=== PATIENT | male | born 1935 | race Caucasian/White ===

== ENCOUNTER 2022-11-17 18:03 | Outpatient (RCR) | payer MEDICARE, OTHER, SELFPAY | END 2022-12-12 23:59 | disposition home or self-care (01) | LOC: MM 18:03 | PROVIDERS: PCP Internal Medicine; Visit Provider Internal Medicine | DX: Z51.81 Encounter for therapeutic drug level monitoring (principal); Z79.01 Long term (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; I48.91 Unspecified atrial fibrillation | CPT/HCPCS: 85610; G0463 ==

== ENCOUNTER 2022-12-18 08:52 | Outpatient (RCR) | payer MEDICARE, OTHER, SELFPAY | END 2023-01-12 16:50 | disposition home or self-care (01) | LOC: MM 08:52 | PROVIDERS: PCP Internal Medicine; Visit Provider Internal Medicine | DX: Z51.81 Encounter for therapeutic drug level monitoring (principal); Z79.01 Long term (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; I48.91 Unspecified atrial fibrillation | CPT/HCPCS: 85610; G0463 ==

== ENCOUNTER 2022-12-18 09:59 | Outpatient (OUT) | payer MEDICARE, OTHER, SELFPAY ==
--- NOTE | 2022-12-18 11:20 | CT_ITS ---
[address] [address] Patient Name: FANI TAY MRN: [id number] date: 1935 Sex: M Assigned Patient Location: CT Current Patient Location: Accession/Order Number: [id number] Exam Date: 12/18/2022 11:24 Report Date: 12/19/2022 07:19 At the request of: NON-STAFF PHYSICIAN Procedure: CT lumbar spine wo con EXAM: CT scan of the lumbar spine without IV iodinated contrast. Dose reduction technique used: Automated exposure control and/or adjustment of the mA and/or kV according to patient size and/or use of iterative reconstruction technique. REASON FOR EXAM: Lumbar radiculopathy M54.16, Spinal stenosis M48.062 COMPARISON: CT scan dated 01/14/2020 FINDINGS: No lumbar spine fractures. Grade 1 anterolisthesis of L4 on L5 and L5 on S1. L4-5 spinal canal stenosis is likely severe. Mild to moderate L2-L3 spinal canal stenosis. Mild L3-L4 spinal canal stenosis. No moderate or high-grade neural foraminal stenoses. Moderate right hydroureteronephrosis. Remainder unremarkable. IMPRESSION: 1. No acute lumbar spine abnormalities. 2. Moderate right hydroureteronephrosis, consider follow-up abdomen pelvis CT. 3. 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 Electronically authenticated by: ROSELIA LUCAS Date: 12/19/2022 07:19
== END 2022-12-18 10:00 | disposition home or self-care (01) ==
LOC: CT 10:01
PROVIDERS: PCP Internal Medicine
DX: M54.16 Radiculopathy, lumbar region (principal); M48.062 Spinal stenosis, lumbar region with neurogenic claudication; N13.30 Unspecified hydronephrosis
CPT/HCPCS: 72131

== ENCOUNTER 2023-01-09 15:43 | Outpatient (OUT) | payer MEDICARE, OTHER, SELFPAY ==
--- NOTE | 2023-01-09 16:06 | US_ITS ---
The [address] [address] Patient Name: FANI TAY MRN: [id number] date: 1935 Sex: M Assigned Patient Location: [facility] Current Patient Location: Accession/Order Number: [id number] Exam Date: 01/09/2023 16:07 Report Date: 01/09/2023 17:38 At the request of: MARÍA ANDERSON Procedure: US venous doppler LE LT EXAM: ULTRASOUND OF THE LOWER EXTREMITY VENOUS LEFT HISTORY: Extremity edema and pain. EDEMA R60.9, PAIN OF LEFT LOWER EXTREMITY M79.605 COMPARISON: None. TECHNIQUE: Multiple sonographic images are performed of the extremity venous system with both color Doppler and grayscale Doppler. Doppler spectral analysis and color flow were performed of the extremity. FINDINGS: There is no evidence of thrombus within the visualized veins. There is adequate phasic and spontaneous flow. There is adequate compression. There is adequate augmentation. No evidence of DVT within the visualized veins of the visualized extremity. No popliteal fluid collection. US/US venous doppler LE LT IMPRESSION: No evidence of DVT within visualized veins. Electronically authenticated by: LAILA YI Date: 01/09/2023 17:38
== END 2023-01-09 15:44 | disposition home or self-care (01) ==
LOC: RAD 15:45
PROVIDERS: PCP Internal Medicine; Visit Provider Internal Medicine
DX: R60.9 Edema, unspecified (principal); M79.605 Pain in left leg
CPT/HCPCS: 93971

== ENCOUNTER 2023-01-13 09:04 | Outpatient (RCR) | payer MEDICARE, OTHER, SELFPAY | END 2023-02-12 17:23 | disposition home or self-care (01) | LOC: MM 09:04 | PROVIDERS: PCP Internal Medicine; Visit Provider Internal Medicine | DX: Z51.81 Encounter for therapeutic drug level monitoring (principal); Z79.01 Long term (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; I48.91 Unspecified atrial fibrillation ==

== ENCOUNTER 2023-02-13 09:59 | Outpatient (RCR) | payer MEDICARE, OTHER, SELFPAY | END 2023-03-13 16:40 | disposition home or self-care (01) | LOC: MM 09:59 | PROVIDERS: PCP Internal Medicine; Visit Provider Internal Medicine | DX: Z51.81 Encounter for therapeutic drug level monitoring (principal); Z79.01 Long term (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; I48.91 Unspecified atrial fibrillation | CPT/HCPCS: 85610; G0463 ==

== ENCOUNTER 2023-03-16 01:37 | Outpatient (RCR) | payer MEDICARE, OTHER, SELFPAY | END 2023-04-14 17:16 | disposition home or self-care (01) | LOC: MM 01:37 | PROVIDERS: PCP Internal Medicine; Visit Provider Internal Medicine | DX: Z51.81 Encounter for therapeutic drug level monitoring (principal); Z79.01 Long term (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; I48.91 Unspecified atrial fibrillation | CPT/HCPCS: 85610; G0463 ==

== ENCOUNTER 2023-04-15 00:27 | Outpatient (RCR) | payer MEDICARE, OTHER, SELFPAY | END 2023-05-14 16:03 | disposition home or self-care (01) | LOC: MM 00:27 | PROVIDERS: PCP Internal Medicine; Visit Provider Internal Medicine | DX: Z51.81 Encounter for therapeutic drug level monitoring (principal); Z79.01 Long term (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; I48.91 Unspecified atrial fibrillation | CPT/HCPCS: 85610; G0463 ==

== ENCOUNTER 2023-05-15 09:12 | Outpatient (RCR) | payer MEDICARE, OTHER, SELFPAY | END 2023-06-12 15:23 | disposition home or self-care (01) | LOC: MM 09:12 | PROVIDERS: PCP Internal Medicine; Visit Provider Internal Medicine | DX: Z51.81 Encounter for therapeutic drug level monitoring (principal); Z79.01 Long term (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; I48.91 Unspecified atrial fibrillation ==

== ENCOUNTER 2023-06-15 00:59 | Outpatient (RCR) | payer MEDICARE, OTHER, SELFPAY | END 2023-07-15 17:06 | disposition home or self-care (01) | LOC: MM 00:59 | PROVIDERS: PCP Internal Medicine; Visit Provider Internal Medicine | DX: Z51.81 Encounter for therapeutic drug level monitoring (principal); Z79.01 Long term (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; I48.91 Unspecified atrial fibrillation | CPT/HCPCS: 85610; G0463 ==

== ENCOUNTER 2023-07-16 01:42 | Outpatient (RCR) | payer MEDICARE, OTHER, SELFPAY | END 2023-08-13 17:15 | disposition home or self-care (01) | LOC: MM 01:42 | PROVIDERS: PCP Internal Medicine; Visit Provider Internal Medicine | DX: Z51.81 Encounter for therapeutic drug level monitoring (principal); Z79.01 Long term (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; I48.91 Unspecified atrial fibrillation ==

== ENCOUNTER 2023-08-14 01:08 | Outpatient (RCR) | payer MEDICARE, OTHER, SELFPAY | END 2023-09-11 13:05 | disposition home or self-care (01) | LOC: MM 01:08 | PROVIDERS: PCP Internal Medicine; Visit Provider Internal Medicine | DX: Z51.81 Encounter for therapeutic drug level monitoring (principal); Z79.01 Long term (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; I48.91 Unspecified atrial fibrillation ==

== ENCOUNTER 2023-09-14 03:30 | Outpatient (RCR) | payer MEDICARE, OTHER, SELFPAY | END 2023-10-13 17:50 | disposition home or self-care (01) | LOC: MM 03:30 | PROVIDERS: PCP Internal Medicine; Visit Provider Internal Medicine | DX: Z51.81 Encounter for therapeutic drug level monitoring (principal); Z79.01 Long term (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; I48.91 Unspecified atrial fibrillation | CPT/HCPCS: 85610; G0463 ==

== ENCOUNTER 2023-10-14 00:18 | Outpatient (RCR) | payer MEDICARE, OTHER, SELFPAY | END 2023-11-13 11:13 | disposition home or self-care (01) | LOC: MM 00:18 | PROVIDERS: PCP Internal Medicine; Visit Provider Internal Medicine | DX: Z51.81 Encounter for therapeutic drug level monitoring (principal); Z79.01 Long term (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; I48.91 Unspecified atrial fibrillation | CPT/HCPCS: 85610; G0463 ==

== ENCOUNTER 2023-11-16 00:20 | Outpatient (RCR) | payer MEDICARE, OTHER, SELFPAY | END 2023-12-11 09:58 | disposition home or self-care (01) | LOC: MM 00:20 | PROVIDERS: PCP Internal Medicine; Visit Provider Internal Medicine | DX: Z51.81 Encounter for therapeutic drug level monitoring (principal); Z79.01 Long term (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; I48.91 Unspecified atrial fibrillation | CPT/HCPCS: 85610; G0463 ==

== ENCOUNTER 2023-12-14 00:42 | Outpatient (RCR) | payer MEDICARE, OTHER, SELFPAY | END 2024-01-13 09:40 | disposition home or self-care (01) | LOC: MM 00:42 | PROVIDERS: PCP Internal Medicine; Visit Provider Internal Medicine | DX: Z51.81 Encounter for therapeutic drug level monitoring (principal); Z79.01 Long term (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; I48.91 Unspecified atrial fibrillation ==

== ENCOUNTER 2024-01-14 00:31 | Outpatient (RCR) | payer MEDICARE, OTHER, SELFPAY | END 2024-02-12 09:30 | disposition home or self-care (01) | LOC: MM 00:31 | PROVIDERS: PCP Internal Medicine; Visit Provider Internal Medicine | DX: Z51.81 Encounter for therapeutic drug level monitoring (principal); Z79.01 Long term (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; I48.91 Unspecified atrial fibrillation | CPT/HCPCS: 85610; G0463 ==

== ENCOUNTER 2024-02-15 00:55 | Outpatient (RCR) | payer MEDICARE, OTHER, SELFPAY | END 2024-03-14 23:25 | disposition home or self-care (01) | LOC: MM 00:55 | PROVIDERS: PCP Internal Medicine; Visit Provider Internal Medicine | DX: Z51.81 Encounter for therapeutic drug level monitoring (principal); Z79.01 Long term (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; I48.91 Unspecified atrial fibrillation | CPT/HCPCS: 85610; G0463 ==

== ENCOUNTER 2024-03-15 01:27 | Outpatient (RCR) | payer MEDICARE, OTHER, SELFPAY | END 2024-04-14 23:37 | disposition home or self-care (01) | LOC: MM 01:27 | PROVIDERS: PCP Internal Medicine; Visit Provider Internal Medicine | DX: Z51.81 Encounter for therapeutic drug level monitoring (principal); Z79.01 Long term (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; I48.91 Unspecified atrial fibrillation | CPT/HCPCS: 85610; G0463 ==

== ENCOUNTER 2024-03-25 15:51 | Outpatient (RCR) | payer MEDICARE, OTHER, SELFPAY | END 2024-04-02 15:25 | disposition home or self-care (01) | LOC: PT 15:51 | PROVIDERS: PCP Internal Medicine; Visit Provider Physician Assistant | DX: M75.21 Bicipital tendinitis, right shoulder (principal); M75.101 Unspecified rotator cuff tear or rupture of right shoulder, not specified as traumatic | CPT/HCPCS: 97110; 97140; 97161 ==

== ENCOUNTER 2024-04-15 11:07 | Outpatient (RCR) | payer MEDICARE, OTHER, SELFPAY | END 2024-05-14 23:59 | disposition home or self-care (01) | LOC: MM 11:07 | PROVIDERS: PCP Internal Medicine; Visit Provider Internal Medicine | DX: Z51.81 Encounter for therapeutic drug level monitoring (principal); Z79.01 Long term (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; I48.91 Unspecified atrial fibrillation ==

== ENCOUNTER 2024-05-15 11:03 | Outpatient (RCR) | payer MEDICARE, OTHER, SELFPAY | END 2024-06-14 09:59 | disposition home or self-care (01) | LOC: MM 11:03 | PROVIDERS: PCP Internal Medicine; Visit Provider Internal Medicine | DX: Z51.81 Encounter for therapeutic drug level monitoring (principal); I48.91 Unspecified atrial fibrillation; Z79.01 Long term (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 | CPT/HCPCS: 85610; G0463 ==

== ENCOUNTER 2024-06-16 00:29 | Outpatient (RCR) | payer MEDICARE, OTHER, SELFPAY | END 2024-07-15 15:04 | disposition home or self-care (01) | LOC: MM 00:29 | PROVIDERS: PCP Internal Medicine; Visit Provider Internal Medicine | DX: Z51.81 Encounter for therapeutic drug level monitoring (principal); Z79.01 Long term (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; I48.91 Unspecified atrial fibrillation | CPT/HCPCS: 85610; G0463 ==

== ENCOUNTER 2024-07-18 00:48 | Outpatient (RCR) | payer MEDICARE, OTHER, SELFPAY | END 2024-08-12 11:17 | disposition home or self-care (01) | LOC: MM 00:48 | PROVIDERS: PCP Internal Medicine; Visit Provider Internal Medicine | DX: Z51.81 Encounter for therapeutic drug level monitoring (principal); Z79.01 Long term (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; I48.91 Unspecified atrial fibrillation | CPT/HCPCS: 85610; G0463 ==

== ENCOUNTER 2024-08-03 14:19 | Outpatient (OUT) | payer MEDICARE, OTHER, SELFPAY ==
--- NOTE | 2024-08-03 14:24 | XR_ITS ---
The [address] [address] Patient Name: FANI TAY MRN: [id number] date: 1935 Sex: M Assigned Patient Location: [facility] Current Patient Location: Accession/Order Number: [id number] Exam Date: 08/04/2024 10:46 Report Date: 08/04/2024 10:47 At the request of: JULIO C HALEY MD Procedure: XR abdomen 1V KUB: CLINICAL INFORMATION: Kidney stone follow-up COMPARISON: None. FINDINGS: No suspicious urinary tract calcification. No bowel obstruction or free air. Presumed vascular calcifications. Surgical clips are seen involving the pelvis. Osseous structures demonstrate degenerative change. XR/XR abdomen 1V IMPRESSION: NO SUSPICIOUS URINARY TRACT CALCULUS. Impression dictated by: Henry Ramirez Jr., D.O.08/04/2024 10:47 AM Dictation Location: [place] [address] Electronically authenticated by: [id number] Y Date: 08/04/2024 10:47
== END 2024-08-03 14:20 | disposition home or self-care (01) ==
LOC: RAD 14:20
PROVIDERS: PCP Internal Medicine; Visit Provider Urology
DX: N20.0 Calculus of kidney (principal); C67.9 Malignant neoplasm of bladder, unspecified; Z51.81 Encounter for therapeutic drug level monitoring; Z79.01 Long term (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; I48.91 Unspecified atrial fibrillation
CPT/HCPCS: 74018; 85610; G0463

== ENCOUNTER 2024-08-14 08:10 | Outpatient (RCR) | payer MEDICARE, OTHER, SELFPAY | END 2024-09-09 13:30 | disposition home health service (06) | LOC: MM 08:10 | PROVIDERS: PCP Internal Medicine; Visit Provider Internal Medicine | DX: Z51.81 Encounter for therapeutic drug level monitoring (principal); Z79.1 Long term (current) use of non-steroidal anti-inflammatories (NSAID); I48.91 Unspecified atrial fibrillation ==

== ENCOUNTER 2024-08-23 11:04 | Outpatient (OUT) | payer MEDICARE, OTHER, SELFPAY ==
--- OUTSIDE RECORDS SUMMARY | 2024-08-23 11:20 | XMS_ITS | CCD ---
Author Organization [facility] Care Team Providers Care Siphoner Name Role Phone Trey العلي Unavailable Unavailable Pending Provider Unavailable Unavailable Milton Nolasco Unavailable Unavailable Milton Nolasco Unavailable Unavailable Bonita Kingsley Unavailable Unavailable Trey العلي Unavailable Unavailable Unavailable Vi Lin Unavailable Unava ilable Trey العلي Unavailable Unavailable Pending Provider Unavailable Unavailable Milton Nolasco Unavailable Unavailable Milton Nolasco MD Unavailable Unavailable Bonita iKngsley Unavailable Unavailable Javi Cunningham MD Unavailable UnavailFani Polanco Unavailable María Stevenson II Unavailable [phone] DO Trey العلي Primary Care Provider [phone] MD María Stevenson II Attending Provider MD Rubio Pineda Attending Provider NO FAMILY, PHYSICIAN Primary Care Provider Unava ilable BENJI Shaffer Attending Provider Unavailable Unavailable Dr. Bonita Kingsley Attending Anastasia Dr. Trey Sherwood Primary Care UnavaBENJI Hernández Attending Provider BENJI Shaffer Attending Provider DO Trey العلي Primary Care Provider [phone] DR KRISTIN ROME Attending Unavailable DR TREY العلي Primary Care Unavailable SAEZ ., FELIPA Consulting Unavailable DR KRISTIN ROME Admitting Unavailable SHAIKH Fazal TREVINO Attending Unavailable FAWWAD, ROME H Primary Care Unavailable FAWWAD, ROME H Admitting Unavailable PAY ., DR HOANG Admitting Unavailable ZOHRA, DR HOANG Primary Care Unavailable PAY ., DR HOANG Attending Unavailable PAY ., DR HOANG Consulting Unavailable Mathis, Osito Consulting Unavailable FAWWAD, ROME H Primary Care Unavailable MCGUIRE ., DR KRISTIN Molina Consulting Unavailable MCGUIRE ., DR KRISTIN Molina Admitting Unavailable MCGUIRE ., DR KRISTIN Molina Attending Unavailable ALEA SALDIVAR Consulting Unavailable FAWWAD, ROME H Primary Care Unavailable MCGUIRE ., DR KRISTIN Molina Consulting Unavailable MCGUIRE ., DR KRISTIN Molina Admitting Unavailable MCGUIRE ., DR KRISTIN Molina Attending Unavailable FAWWAD, ROME H Attending Unavailable FAWWAD, ROME H Admitting Unavailable DR TREY العلي Primary Care Unavailable FAWWAD, ROME H Attending Unavailable FAWWAD, ROME H Primary Care Unavailable FAWWAD, ROME H Admitting Unavailable FAWWAD, ROME H Primary Care Unavailable MCGUIRE ., DR KRISTIN Molina Attending Unavailable MCGUIRE ., DR KRISTIN Molina Consulting Unavailable CMGUIRE ., DR KRISTIN Molina Admitting Unavailable FAWWAD, ROME H Consulting Unavailable FAWWAD, ROME H Attending Unavailable FAWWAD, ROME H Admitting Unavailable DR TREY العلي Primary Care Unavailable FAWWAD, ROME H Primary Care Unavailable FAWWAD, ROME H Attending Unavailable FAWWAD, ROME H Admitting Unavailable FAWWAD, ROME H Primary Care Unavailable FAWWAD, ROME H Attending Unavailable FAWWAD, ROME H Admitting Unavailable FAWWAD, ROME H Attending Unavailable FAWWAD, ROME H Admitting Unavailable DR TREY لاعلي Primary Care Unavailable FAWWAD, ROME H Attending Unavailable FAWWAD, ROME H Admitting Unavailable DR TREY العلي Primary Care Unavailable FAWWAD, ROME H Attending Unavailable FAWWAD, ROME H Admitting Unavailable DR TREY العلي Primary Care Unavailable FAWWAD, ROME H Attending Unavailable FAWWAD, ROME H Admitting Unavailable DR TREY العلي Primary Care Unavailable FAWWAD, ROME H Consulting Unavailable MCGUIRE ., DR KRISTIN Molina Attending Unavailable ZOHRA, DR HOANG Primary Care Unavailable SHAYLA ., DR KRISTIN Molina Admitting Unavailable NADJA .FELIPA Consulting Unavailable ZOHRA, DR HOANG Primary Care Unavailable MCGUIRE ., DR KRISTIN Molina Attending Unavailable MCGUIRE ., DR KRISTIN Molina Consulting Unavailable MCGUIRE ., DR KRISTIN Molina Admitting Unavailable ZOHRA, DR HOANG Attending Unavailable ZOHRA, DR HOANG Admitting Unavailable ZOHRA, DR HOANG Primary Care Unavailable FAWJOSE ALFREDO, ROME H Primary Care Unavailable MCGUIRE ., DR KRISTIN Molina Admitting Unavailable MCGUIRE ., DR KRISTIN Molina Attending Unavailable ZOHRA, DR HOANG Attending Unavailable ZOHRA, DR HOANG Admitting Unavailable ZOHRA, DR HOANG Primary Care Unavailable [facility] R[facility] Primary Care Unavailable WEST, DR ORLY Dowling Consulting Unavailable MCGUIRE ., DR KRISTIN Molina Admitting Unavailable MCGUIRE ., DR KRISTIN Molina Attending Unavailable MCGUIRE ., DR KRISTIN Molina Consulting Unavailable [facility] ROME H Primary Care Unavailable MCGUIRE ., DR KRISTIN Molina Consulting Unavailable MCGUIRE ., DR KRISTIN Molina Admitting Unavailable MCGUIRE ., DR KRISTIN Molina Attending Unavailable [facility] ROME [facility] Attending Unavailable [facility] Admitting Unavailable ZOHRA, DR HOANG Primary Care Unavailable DO Trey العلي Primary Care Provider DO Trey العلي Attending Provider MD María Anderson Primary Care Provider MD María Anderson Attending Provider BENJI Lin Emergency Provider [phone] María Anderson Unavailable Dr. Trey العلي Primary Care Unagrady Kingsley, Dr. Bonita Greenberg Referring Anastasia vailable Josr, Dr. Bonita Greenberg Attending Anastasia vailable Ema Watts Unavailable BENJI Shaffer Attending Provider MD Julio C Ramirez Attending Provider [phone] BENJI Shaffer Attending Provider [phone] María Anderson MD Primary Care Provider MD María Anderson Primary Care Provider MD Julio C Ramirez Attending Provider [phone] BENJI Shaffer Attending Provider DO Tay Wood Emergency Provider DO Isai May Admit Provider DO Isai May Attending Provider DO Buck Glover Other Provider ANA Gonzalez Other Provider Unavailable DO Elizabeth Hassan Other Provider MD Bonita Kingsley Other Provider MD Lico Bolivar Other Provider MD Dominick Lugo Other Provider MD Robert Avila Other Provider BENJI Chu Other Provider MD Vika Goyal Other Provider MD Manpreet Rolon Other Provider MD Jarod Hills Other Provider David [facility] Kelly Burgos Other Provider MD Emily Latham Other Provider MD María Anderson Primary Care Provider MD Rubio Crooks Jr Emergency Provider DO Isai May Admit Provider DO Isai May Attending Provider MD Betty Buchanan Attending Provider [phone] MD Rubio Waite Other Provider MD Apsen Bishop Other Provider BELKYS Tyler-C Mona Burgos Other Provider DO Roly Morales Other Provider [phone] MD María Stevenson II Other Provider DO Ramses Garcia Other Provider MD Swati Sagastume Emergency Provider MD Hilario Skelton Admit Provider MD Hilario Skelton Attending Provider MD Swati Sagastume Emergency Provider MD Hilario Skelton Admit Provider MD Ashley Merritt Attending Provider [phone] MD Radha Woodward Other Provider MD Henry Clark Other Provider BENJI Schmidt Other Provider [phone] DO Kel Juan Jr Other Provider MD Elver Cifuenets Other Provider MD Henry Clark Admit Provider MD Henry Clark Attending Provider [phone] Karen RN Autumn Other Provider Unavailable ANA Chaudhry Other Provider Unavailable ANA Koenig Other Provider Unavailable ANA Ley Other Provider Unavailable Ramiro RN Macrina Other Provider Unavailable MD Bebe Ivey Other Provider DO Tracy Bar Other Provider MD Jose Kelsey Other Provider DO Parviz Roth Other Provider MD Hilario Skelton Other Provider MD Ashley Merritt Other Provider [phone] MD Jaguar Brewer Other Provider Unavailable BENJI Claros Other Provider MD Donnell Amos Other Provider MD Best Junior Other Provider MD Betty Buchanan Other Provider MD Yoni Zarco Other Provider DO Isai May Other Provider MD Hola Parkinson Other Provider MD Bunny Fowler Other Provider Adriana PTA-C Tara Choi Other Provider BENJI Ruvalcaba Other Provider Unavailable MD Bright Lopez Other Provider MD Paul High Other Provider MD Estiven Sharpe Other Provider MD Kang Enriquez Other Provider Unavailable MD Buddy East Other Provider DO Sherry Gonzalez Other Provider DO Bj Hess Other Provider BENJI Moore Other Provider DO Home Marino Other Provider MD Minna Patricia Other Provider BENJI Lewis Other Provider BENJI Gill Other Provider MD Regis Winston Other Provider MD Pedrito Prather Other Provider DO Fred Yanes Other Provider DO Charley Butcher Other Provider MD Marcelo Sharpe Other Provider MD Norma Box Other Provider BENJI Alston Other Provider MD Aidan Knight Other Provider MD Welsy Palmer Other Provider Uriostegui, RN Naheed Other Provider Unavailable DO Roly Morales Attending Provider DO Mick Putnam Emergency Provider [phone] MD Donnell Amos Admit Provider [phone] MD Donnell Amos Attending Provider MD Minna Patricia Admit Provider [phone] MD Minna Patricia Attending Provider DO Buck Glover Other Provider MD María Anderson Primary Care Provider MD Rubio Crooks Jr Emergency Provider DO Isai May Admit Provider [phone] MD Betty Buchanan Attending Provider MD Rubio Waite Other Provider MD Aspen Bishop Other Provider BELKYS Tyler-C Mona L Other Provider DO Roly Morales Other Provider MD María Stevenson II Other Provider DO Ramses Garcia Other Provider MD Swati Sagastume R Emergency Provider MD Hilario Skelton Admit Provider MD Ashley Merritt Attending Provider MD Radha Woodward Other Provider MD Henry Clark Other Provider BENJI Schmidt Other Provider [phone] DO Kel Juan Jr Other Provider [phone] MD Elver Cifuentes Other Provider MD Henry Clark Admit Provider MD Henry Clark Attending Provider ANA Jones Other Provider Unavailable Richa RN Joy Other Provider Unavailable Liberty RN Analy Other Provider Unavailable Av RN Shabnam Other Provider Unavailable ANA Rubio Other Provider Unavailable MD Bebe Ivey Other Provider DO Tracy Bar Other Provider MD Jose Kelsey Other Provider DO Parviz Roth Other Provider MD Hilario Skelton Other Provider MD Ashley Merritt Other Provider MD Jaguar Brewer Other Provider Unavailable BENJI Claros Other Provider [phone] MD Donnell Amos Other Provider MD Best Junior Other Provider MD Betty Buchanan Other Provider MD Yoni Zarco Other Provider DO Isai May Other Provider MD Hola Parkinson Other Provider MD Bunny Fowler Other Provider Adriana PTA-C Tara Choi Other Provider [phone] BENJI Ruvalcaba Other Provider Unavailable MD Bright Lopez Other Provider MD Paul High Other Provider MD Estiven Sharpe Other Provider MD Kang Enriquez Other Provider Unavailable MD Buddy East Other Provider DO Sherry Gonzalez Other Provider DO Bj Hess Other Provider [phone] BENJI Moore Other Provider DO Home Marino Other Provider MD Minna Patricia Other Provider BENJI Lewis Other Provider BENJI Gill Other Provider MD Regis Winston Other Provider MD Pedrito Prather Other Provider DO Fred Yanes Other Provider DO Charley Butcher Other Provider MD Marcelo Sharpe Other Provider MD Norma Box Other Provider BENJI Alston Other Provider [phone] MD Aidan Knight Other Provider MD Wesly Palmer Other Provider Gila, ANA Farfan Other Provider Unavailable DO Roly Morales Attending Provider [phone] DO Mick Putnam Emergency Provider MD Minna Patricia Admit Provider MD Minna Patricia Attending Provider DO Buck Glover Other Provider DO El Bliss Emergency Provider MD Bright Lopez Admit Provider MD Bright Lopez Attending Provider [phone] DO Ramses Garcia Attending Provider María Anderson MD Primary Care Provider Frank Hook MD Unavailable Julio C Ramirez MD Unavailable Bonita Kingsley MD Unavailable María Anderson MD Unavailable BONITA KINGSLEY Referring Unavailable MARÍA ANDERSON Primary Care Unavailable BONITA KINGSLEY Attending Unavailable ALEXYS, MARÍA CAMEJO Primary Care Unavailable BONITA KINGSLEY Attending Unavailable KINGSLEYBONITA Referring Unavailable ALEXYS, MARÍA CAMEJO Primary Care Unavailable KINGSLEYBONITA Attending Unavailable KNIGSLEY, BONITA Márquez Referring Unavailable ALEXYS, MARÍA CAMEJO Primary Care Unavailable Trey العلي DO Unavailable ALEXYS, MARÍA Burgos Attending Unavailable HILL, MARÍA L Referring Unavailable HILL, MARÍA L Attending Unavailable MARIA EUGENIA COOL Referring Unavailable HILL, MARÍA L Attending Unavailable HILL, MARÍA L Referring Unavailable LATRICE WEEKS Referring Unavailable HILL, MARÍA L Attending Unavailable HILL, MARÍA L Referring Unavailable ADELAIDE WILSON Attending Unavailable SHAYLEEIONMARIA FERNANDA Attending Unavailable RISALIDYAN HERNANDEZ Attending Unavailable HILL, MARÍA L Referring Unavailable HILL, MARÍA L Referring Unavailable DIDION, MARIA FERNANDA Burgos Attending Unavailable FRANK HOOK Attending Unavailable PETR PERLA Attending Unavailable BUCK GLOVER Referring Unavailable HILL, MARÍA L Referring Unavailable DIDION, MARIA FERNANDA Burgos Attending Unavailable RISALIDYAN HERNANDEZ Attending Unavailable HILL, MARÍA L Referring Unavailable Alexys María CLAYTON Primary Care Provider Bonita Kingsley MD Attending Provider Gely Lin APRN Emergency Provider [phone] Radha Woodward Consulting Unavailable Hilario Skelton Admitting Unavailable Alexys María Primary Care Unavailable Ashley Merritt Attending Unavailable Henry Clark Consulting Unavailable Cherelle Schmidt Consulting Unavailable Kel Juan Jr Consulting UnavailElver Schwartz Consulting Unavaila Rubio Forrest Consulting Unavailable Aspen Bishop Consulting Unavailable Mona Tyler Consulting Unavailable Roly Morales Consulting Unavailable María Stevenson II Consulting UnavailRamses Heller Consulting Unavailable Minna Patricia Attending Unavailable Minna Patricia Admitting Unavailable María Anderson Primary Care Unavailable Buck Glover Consulting Unavailable Henry Clark Admitting Unavailable Autumn Jones Consulting Unavailable Henry Clark Attending Unavailable María Anderson Primary Care Unavailable Joy Chaudhry Consulting Unavailable Analy Koenig Consulting Unavailable Shabnam Ley Consulting Unavailable Macrina Rubio Consulting Unavailable Bebe Ivey Consulting Unavailable Tracy Bar Consulting Unavailable Jose Kelsey Consulting Unavailable Parviz Roth Consulting UnavailHialrio De Guzman Consulting Unavailable Ashley Merritt Consulting Unavailable Jaguar Brewer Consulting Unavailable Kiki Claros Consulting UnavailDonnell Olivo Consulting Unavailable Best Junior Consulting Unavailable Betty Buchanan Consulting Unavailable Yoni Zarco Consulting Unavailable Isai May Consulting Unavailable Hola Parkinson Consulting Unavailable Bunny Fowler Consulting Unavailable Tara Wright Consulting Unavailable Madeline Ruvalcaba Consulting Unavailable Bright Lopez Consulting Unavailab Paul Ag Consulting Unavailable Estiven Sharpe Consulting Unavailable Kang Enriquez Consulting Unavailable Buddy East Consulting Unavailable Sherry Gonzalez Consulting Unavailable Bj Hess Consulting Unavailable Italia Moore Consulting Unavailable Home Marino Consulting Unavailable DaromarJoaquinaymichelle Márquez Consulting Unavailable Kaitlynn Lewis Consulting Unavailable Eleni Gill Consulting Unavailable Regis Winston Consulting Unavailable Pedrito Prather Consulting Unavailable Fred Yanes Consulting Unavailable Charley Butchre Consulting Unavailable Marcelo Sharpe Consulting Unavailable Norma Box Consulting Unava ilable Rubi Alston Consulting Unavailable Aidan Knight Consulting Unavailable Wesly Palmer Consulting Unavailable Naheed Uriostegui Consulting Unavailable Gely Lin Admitting Unavailable Gely Lin Attending Unavailable Alexys, María Primary Care Unavailable Roly Morales Admitting Unavailable Roly Morales Attending Unavailable [place], María Primary Care Unavailable [place], María Primary Care Unavailable Bonita Kingsley Admitting Unavailable Bonita Kingsley Attending Unavailable Ramses Garcia Attending Unavailable Ramses Garcia Admitting Unavailable [place], María Primary Care Unavailable Roly Morales Admitting Unavailable Roly Morales Attending Unavailable Alexys, María Primary Care Unavailable Doalissaor Bright E Attending Unavailab le [place], Bright E Admitting Unavailab le [place], María Primary Care Unavailable Rubio Waite Consulting Unavailable Isai May Admitting Unavailable [place], María Primary Care Unavailable Betty Buchanan Attending Unavailable Aspen Bishop Consulting Unavailable Mona Tyler Consulting Unavailable Roly Morales Consulting Unavailable María Stevenson II Consulting UnavailRamses Heller Consulting Unavailable Julio C RAMIREZ Attending Unavailable Julio C RAMIREZ Attending Unavailable Julio C RAMIREZ Admitting Unavailable Julio C RAMIREZ Attending Unavailable Copsey, Marisela M Admitting Unavailable Copsey, Marisela M Attending Unavailable [facility] Unavailable [facility] Care Unavailable Copsey, Marisela M Attending Unavailable Copsey, Marisela M Admitting Unavailable Copsey, Marisela M Attending Unavailable Copsey, Marisela M Admitting [facility] Copsey, Marisela M Attending Unavailable Copsey, Marisela M Admitting [facility]available [facility] Unavailable Copsey, Marisela M Attending Unavailable Copsey, Marisela M Admitting Unavailable [facility] Unavailable Dolce, Erasmo R Admitting Unavailable Dolce, Erasmo R Attending Unavailable [facility] Unavailable Dolce, Erasmo R Admitting Unavailable Dolce, Erasmo R Attending Unavailable [facility] Unavailable Dolce, Erasmo R Admitting Unavailable Dolce, Erasmo R Attending Unavailable [facility] Unavailable Copsey, Marisela M Admitting Unavailable Copsey, Marisela M Attending Unavailable [facility] Unavailable Copsey, Marisela M Admitting Unavailable Copsey, Marisela M Attending [facility] Copsey, Marisela M Admitting Unavailable Copsey, Marisela M Attending Unavailable [facility] Unavailable Allergies Allergy Classification Reported Allergen(s) Allergy Type Date of Onset Reaction(s) Facility Aminoglycosides (antibiotic) (1 source) Neomycin Drug Allergy 4 itch and rash, rash [facility] Bacitracin (1 source) Bacitracin Drug Allergy 4 itch and rash, rash [facility] Penicillins (antibiotic) (2 sources) Amoxicillin Drug Allergy 4 Swelling of Lip/Tongue/Thr oat, Anaphylaxis [facility] (20 sources) Amoxicillin; Translations: [Amoxicillin CAPS] Drug Allergy 4 Angioedema, Swelling [facility] Work Phone: (20 sources) Bacitracin; Translations: [bacitracin] Drug Allergy [address] [facility] (20 sources) Neomycin; Translations: [neomycin] Drug Allergy [address] [facility] (16 sources) Polymyxin B; Translations: [Polymyxin B Sulfate SOLR] Drug Allergy 9 Other [id number] [address] [place] Work Phone: (20 sources) Penicillins; Translations: [Penicillins] Allergy to drug (finding) [address] [facility] (20 sources) Adhesive agent; Translations: [adhesive] Drug allergy 4 Unknown, Rash [facility] (4 sources) Bacitracin / Neomycin / Polymyxin B Drug Allergy rash [facility] [email or web address] Other (3 sources) Penicillin V Drug Allergy Unknown [facility] [email or web address] Other (20 sources) Amoxicillin; Translations: [Amoxicillin] Drug Allergy 2 Swelling of Lip/Tongue/Thr oat [facility] (20 sources) polymyxin B; Translations: [POLYMYXIN B] Allergy to substance 9 Rash and itch, Rash and itch, rash [facility] (1 source) Penicillin Drug Allergy Unknown [facility] [email or web address] Other (5 sources) Penicillins Drug Allergy 4 Angioedema, Other, Rash, Swelling, Unknown [facility] Work Phone: (17 sources) Penicillins Drug Allergy 4 Other, Rash, Swelling, Angioedema [facility] (17 sources) Wound Dressing Adhesive Drug Allergy 4 Rash [facility] (1 source) Penicillins Drug allergy (disorder) 5 [facility] Repository (1 source) metroNIDAZOLE; Translations: [Flagyl] Drug Allergy [facility] Repository Medications Current Medications Medication Drug Class(es) Dates Sig (Normalized) Sig (Original) acetaminophen 500 mg oral tablet (20 sources) Start: 12-23-2023 take 2 tablets by mouth every six hours as needed for pain Acetaminophen 500 mg Tablet Active 1000 MG PO Q6H as needed for Fever Or Pain 0 December 22, 2023 11:00pm Start: 12-23-2023 Start: 05-16-2019 End: 08-22-2020 Acetaminophen 500 mg Tablet Discontinued 325 MG PO Q4H as needed for Pain May 16, 2019 12:00am August 22, 2020 9:55am Start: 05-16-2019 End: 08-22-2020 Start: 05-16-2019 End: 08-22-2020 take 325 mg by mouth every four hours Acetaminophen Discontinued 325 MG PO Q4H May 16, 2019 1:00am August 22, 2020 10:55am acetaminophen 325 mg / oxyCODONE hydrochloride 5 mg oral tablet (20 sources) Opioid Agonist Start: 03-07-2024 End: 03-12-2024 take 1 tablet by mouth every six hours for pain oxyCODONE-acetaminophen (Percocet) 5-325 MG tablet Indications: Nontraumatic tear of right rotator cuff, unspecified tear extent Take 1 tablet by mouth every 6 (six) hours if needed for moderate pain or severe pain for up to 5 days 20 tablet 03/07/2024 03/12/2024 Active Start: 12-28-2020 take 1 tablet by chao th every six hours Percocet 5-325 MG 1 tablet as needed Orally every 6 hrs for 7 days DO NOT FILL UNTIL 12/31/2020 Dec, Not-Taking Start: 12-28-2020 take 1 tablet by chao th every eight hours Percocet 5-325 MG 1 tablet as needed Orally every 8 hrs for 7 days Dec, Not-Taking Start: 12-19-2020 End: 10-01-2021 take 1 tablet by mouth every four to six hours as needed for pain Oxycodone-Acetaminophen (Percocet) 5-325 mg Tablet Discontinued 1 - 2 TAB PO EVERY 4-6 HOURS as needed for Pain 40 7 December 19, 2020 October 01, 2021 9:25am Start: 12-19-2020 End: 10-01-2021 [id number] 200 actuat albuterol 0.09 mg/actuat metered dose inhaler (16 sources) beta2-Adrenergic Agonist Start: 06-13-2024 End: 06-13-2025 take 2 puff(s) by inhalation every six hours for wheezing albuterol HFA (Ventolin HFA) 90 mcg/act inhaler Indications: Centrilobular emphysema (CMS/HCC) Inhale 2 puffs every 6 (six) hours if needed for wheezing or shortness of breath Do not use at same time as Tramadol 8 g 06/13/2024 06/13/2025 Active Start: 12-23-2023 End: 12-29-2023 Albuterol Sulfate 90 mcg/act uation HFA aerosol inhaler Discontinued 2 INH INHALATION Every 4 hours as needed for shortness of breath or wheezing 8.5 December 22, 2023 11:00pm December 29, 2023 1:40pm Start: 12-23-2023 End: 12-29-2023 aspirin 81 mg delayed release oral tablet (20 sources) Platelet Aggregation Inhibitor, Nonsteroidal Anti-inflammatory Drug Start: 12-20-2023 take 1 tablet by mouth once daily Aspirin (Adult Aspirin Regimen) 81 mg tablet,delayed release (DR/EC) Active 81 MG PO Daily December 19, 2023 11:00pm atorvastatin 80 mg oral tablet (20 sources) HMG-CoA Reductase Inhibitor Start: 12-20-2023 Atorvastatin 80 mg tablet Active 40 MG PO Daily December 19, 2023 11:00pm Start: 07-20-2023 End: 09-28-2024 take 1 tablet by mouth in the morning atorvastatin (Lipitor) 40 MG tablet Indications: 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 60 tablet 07/20/2023 Active Start: 06-05-2023 End: 12-20-2023 take 1 tablet by mouth once daily Atorvastatin 80 mg tablet Discontinued 80 MG PO Daily June 05, 2023 12:00am December 19, 2023 11:52pm Start: 06-05-2023 End: 12-20-2023 ciprofloxacin 500 mg oral tablet (19 sources) Quinolone Antimicrobial Start: 06-15-2024 take 1 tablet by mouth twice daily Ciprofloxacin Hcl (Cipro) 500 mg tablet Active 500 MG PO Twice daily June 15, 2024 12:00am Start: 05-05-2023 End: 06-04-2023 take 1 tablet by mouth every two hours Ciprofloxacin Hcl (Cipro) 500 mg tablet Discontinued 500 MG PO Q12H May 05, 2023 12:00am June 04, 2023 3:55pm administer dose at least 2 hrs before/6 hrs after dairy products, calcium, zinc, and/or iron-containing products doxycycline hyclate 100 mg oral capsule (20 sources) Tetracycline-class Drug Start: 04-06-2024 End: 04-13-2024 doxycycline (Vibramycin) 100 MG capsule Indications: Skin tear of left elbow without complication, initial encounter , Left leg cellulitis Take 1 capsule (100 mg) by mouth in the morning and 1 capsule (100 mg) before bedtime. Do all this for 7 days. Take with at least 8 ounces (large glass) of water, do not lie down for 30 minutes after. 14 capsule 04/06/2024 04/13/2024 Active Start: 2022 End: 01-19-2023 take 1 capsule by mouth twice daily Doxycycline Hyclate 100 mg capsule Discontinued 100 MG PO Twice daily 2022 12:00am January 19, 2023 9:47am Start: 03-05-2022 End: 03-19-2022 take 1 tablet by mouth twice daily Doxycycline Hyclate 100 mg tablet Discontinued 100 MG PO Twice daily March 04, 2022 11:00pm March 19, 2022 9:31am Start: 10-01-2021 End: 11-14-2021 take 1 tablet by mouth twice daily Doxycycline Hyclate 100 mg tablet Discontinued 100 MG PO Twice daily September 30, 2021 11:00pm November 14, 2021 9:28am Start: 11-14-2020 End: 12-10-2020 take 1 tablet by mouth twice daily Doxycycline Hyclate 100 mg tablet Discontinued 100 MG PO Twice daily 26 12November 13, 2020 11:00pm December 10, 2020 9:36am Start: 10-31-2020 End: 12-10-2020 take 1 capsule by mouth twice daily Doxycycline Hyclate 100 mg capsule Discontinued 100 MG PO Twice daily October 30, 2020 11:00pm December 10, 2020 9:36am Start: 08-22-2020 End: 09-18-2020 take 1 tablet by mouth twice daily Doxycycline Hyclate 100 mg tablet Discontinued 100 MG PO Twice daily August 22, 2020 12:00am September 18, 2020 1:17pm Start: 08-08-2020 End: 08-29-2020 take 1 capsule by mouth twice daily Doxycycline Hyclate 100 mg capsule Discontinued 100 MG PO Twice daily August 08, 2020 12:00am August 29, 2020 12:36pm Start: 05-07-2020 End: 05-25-2020 take 1 capsule by mouth twice daily Doxycycline Hyclate 100 mg capsule Discontinued 100 MG PO Twice daily May 07, 2020 12:00am May 25, 2020 10:48am enalapril maleate 2.5 mg oral tablet (5 sources) Angiotensin Converting Enzyme Inhibitor Start: 04-18-2024 End: 04-18-2025 take 1 tablet by mouth twice daily enalapril (Vasotec) 2.5 mg tablet Indications: Congestive heart failure, NYHA class 2, unspecified congestive heart failure type Take 1 tablet (2.5 mg) by mouth 2 times a day. 180 tablet 3 04/18/2024 04/18/2025 Active take 1 tablet by mouth once sinan y enalapril (Vasotec) 2.5 MG tablet Take 2.5 mg by mouth Daily Active Multiple Vitamins-Minerals (PRESERVISION AREDS 2 PO) (17 sources) Multiple Vitamins-Minerals (PRESERVISION AREDS 2 PO) Take by mouth Active Chitqaew-Euq-Py-Lut-Zeax anth (Macular Vitamin) 500-5-1 mcg-mg-mg tablet (1 source) Start: 024 take 1 tablet by mouth once daily Jegdkkjy-Zrc-Zx-Lut-Vic xanth (Macular Vitamin) 500-5-1 mcg-mg-mg tablet Active 1 TAB PO Daily February 25, 2024 11:00pm pantoprazole 40 mg delayed release oral tablet (20 sources) Proton Pump Inhibitor Start: 019 take 1 tablet by mouth before mealtime pantoprazole (ProtoNix) 40 MG EC tablet Indications: Gastroesophageal reflux disease without esophagitis Take 1 tablet (40 mg) by mouth in the morning. Take before meals. 90 tablet 3 12/02/2023 Active Start: 04-27-2017 End: 05-08-2017 take 1 tablet by mouth once daily Pantoprazole (Protonix) 40 mg Tablet,Delayed Release (Dr/Ec) Discontinued 40 MG PO Daily April 27, 2017 12:00am May 08, 2017 1:00pm traMADol hydrochloride 50 mg oral tablet (20 sources) Opioid Agonist Start: 06-15-2024 take 1 tablet by mouth once daily as needed for pain Tramadol 50 mg tablet Active 50 MG PO Daily as needed for pain (scale score 7-10) June 15, 2024 12:00am Start: 04-06-2024 End: 07-13-2024 take 1 tablet by mouth every eight hours for pain traMADol (Ultram) 50 MG tablet Indications: Lumbosacral spondylosis without myelopathy Take 1 tablet (50 mg) by mouth every 8 (eight) hours if needed for severe pain 60 tablet 06/13/2024 Active Start: 08-22-2020 End: 12-19-2020 take 1 tablet by mouth once daily as needed for pain Tramadol 50 mg Tablet Discontinued 50 MG PO Daily as needed for Pain August 22, 2020 12:00am December 19, 2020 10:49am Start: 08-22-2020 End: 04-06-2024 take 1 tablet by mouth every six hours as needed for pain Tramadol 50 mg Tablet Discontinued 50 MG PO Q6H as needed for Pain September 30, 2021 11:00pm December 23, 2023 1:06pm Start: 10-28-2019 take [address] [facility] three times daily as needed traMADol HCl - 50 MG Oral Tablet TAKE 2 TABLETS BY MOUTH THREE TIMES DAILY NEEDED Quantity: 180 Refills: 0 Start : 28-Oct-2019 Active warfarin sodium 5 mg oral tablet (20 sources) Vitamin K Antagonist Start: 03-09-2024 take 2 tablets by mouth at bedtime warfarin (Coumadin) 5 MG tablet Indications: Coronary artery disease involving [place] heart without angina pectoris, unspecified vessel or lesion type (CMS/HCC) Take 2 tablets (10 mg) by mouth at bedtime 180 tablet 3 03/09/2024 Active Start: 12-10-2020 End: 01-19-2023 take 2 tablets by mouth every week Warfarin 5 mg tablet Discontinued 10 MG PO 5 TIMES PER WEEK December 09, 2020 11:00pm January 19, 2023 8:51am takes every thu, thu, thu, , thu Start: 02-05-2020 End: 12-23-2023 Start: 05-16-2019 End: 12-23-2023 take 7.5 mg by mouth once daily Warfarin 5 mg tablet A ctive 7.5 MG PO Daily 45 December 23, 2023 1:05pm START TODAY 12/23/23 Start: 06-10-2018 End: 01-14-2020 Warfarin 5 mg tablet Discont inued 10 MG PO Use as Directed May 16, 2019 12:00am January 14, 2020 9:32am 10 mg on Tuesdays Start: 04-27-2017 End: 05-16-2019 take 1 tablet by mouth once Warfarin (Coumadin) 5 mg T ablet Discontinued 5 MG PO Once May 09, 2017 12:00am May 16, 2019 5:51pm Start: 04-27-2017 End: 12-23-2023 Start: 04-27-2017 End: 12-23-2023 Start: 04-27-2017 End: 12-23-2023 Start: 04-27-2017 End: 12-23-2023 (11 sources) Start: 02-26-2024 Start: 12-23-2023 End: 12-29-2023 Start: 05-18-2019 End: 01-14-2020 Completed/Discontinued Medications Medication Drug Class(es) Dates Sig (Normalized) Sig (Original) acetaminophen 325 mg / HYDROcodone bitartrate 5 mg oral tablet (18 sources) Opioid Agonist Start: 05-05-2023 End: 06-04-2023 take 1 tablet by mouth every four to six hours as needed for pain Hydrocodone-Acetami nophen 5-325 mg tablet Discontinued 1 TAB PO EVERY 4-6 HOURS as needed for pain 7 May 05, 2023 June 04, 2023 3:53pm Start: 05-05-2023 End: 06-04-2023 allopurinol 100 mg oral tablet (20 sources) Xanthine Oxidase Inhibitor Start: 01-19-2019 End: 05-16-2019 take 1 tablet by mouth once daily Allopurinol 100 mg Tablet Discontinued 100 MG PO Daily January 18, 2019 11:00pm May 16, 2019 5:51pm azithromycin 250 mg oral tablet (20 sources) Macrolide Antimicrobial Start: 05-18-2019 End: 01-14-2020 take 1 tablet by mouth once daily Azithromycin (Zithromax) 250 mg tablet Discontinued 250 MG PO Daily 3 May 18, 2019 12:00am January 14, 2020 9:32am baclofen 10 mg oral tablet (20 sources) gamma-Aminobutyric Acid-ergic Agonist Start: 01-14-2020 End: 08-22-2020 take 5 mg by mouth four times daily Baclofen 10 mg tablet Discontinued 5 MG PO Four times daily January 13, 2020 11:00pm August 22, 2020 9:54am Start: 01-14-2020 End: 08-22-2020 cefuroxime 250 mg oral tablet (20 sources) Cephalosporin Antibacterial Start: 05-18-2019 End: 01-14-2020 take 1 tablet by mouth twice daily Cefuroxime Axetil 250 mg tablet Discontinued 250 MG PO Twice daily 10 May 18, 2019 12:00am January 14, 2020 9:34am cephalexin 500 mg oral capsule (20 sources) Cephalosporin Antibacterial Start: 01-19-2023 End: 02-26-2023 take 1 capsule by mouth twice daily Cephalexin 500 mg capsule Discontinued 500 MG PO Twice daily January 18, 2023 11:00pm February 26, 2023 9:30am clobetasol propionate 0.0005 mg/mg topical ointment (20 sources) Corticosteroid Start: 05-07-2020 End: 12-10-2020 Clobetasol 0.05 % ointment Discontinued 1 APPLIC TOPICAL .w/dressings 60 14 May 07, 2020 12:00am December 10, 2020 9:35am as per wound orders Start: 05-07-2020 End: 12-10-2020 Start: 05-07-2020 End: 12-10-2020 Clobetasol Discontinued 1 AP PLIC TOPICAL .w/dressings 60 14 May 07, 2020 1:00am December 10, 2020 10:35am as per wound orders collagenase 0.25 unt/mg topical ointment (20 sources) Collagen-specific Enzyme Start: 02-05-2020 End: 05-07-2020 Collagenase Clostridium Histo. (Santyl) 250 unit/gram ointment Discontinued 1 APPLIC TOPICAL Daily February 04, 2020 11:00pm May 07, 2020 8:37am Start: 02-05-2020 End: 05-07-2020 Start: 02-01-2020 Santyl 250 UNI T/GM External Ointment APPLY OINTMENT TOPICALLY DAILY TO WOUND Quantity: 30 Refills: 0 Ordered: 02-Feb-2020 DO Start : 01-Feb-2020 Active diphenhydrAMINE hydrochloride 20 mg/ml / zinc acetate 1 mg/ml topical cream (20 sources) Histamine-1 Receptor Antagonist Start: 05-08-2017 End: 05-16-2019 Diphenhydramine-Zinc Acetate (Itch Relief) 2-0.1 % Cream Discontinued 1 APPLIC TOPICAL Three times daily as needed for itching/rash 04 13May 08, 2017 12:00am May 16, 2019 5:51pm Start: 05-08-2017 End: 05-16-2019 furosemide 20 mg oral tablet (20 sources) Loop Diuretic Start: 01-19-2020 take 1 tablet by mouth in the morning Furosemide 40 MG Oral Tablet TAKE 1 TABLET BY MOUTH IN THE MORNING FOR 30 DAYS Quantity: 30 Refills: 0 Start : 19-Jan-2020 Active Start: 01-14-2020 End: 02-04-2020 take 1 tablet by mouth once daily Furosemide (Lasix) 20 mg tablet Discontinued 20 MG PO Daily January 13, 2020 11:00pm February 04, 2020 10:22pm Start: 01-14-2020 End: 05-07-2020 take 2 tablets by mouth once daily Furosemide (Lasix) 20 mg tablet Discontinued 40 MG PO Daily February 04, 2020 10:22pm May 07, 2020 8:36am On Hold: until restarted by your doctor gabapentin 300 mg oral capsule (20 sources) Anti-epileptic Agent Start: 01-13-2020 take 1 capsule by mouth three times daily Gabapentin 300 MG Oral Capsule TAKE 1 CAPSULE BY MOUTH THREE TIMES DAILY FOR 30 DAYS Quantity: 90 Refills: 0 Start : 13-Jan-2020 Active Start: 05-16-2019 End: 08-22-2020 take 3 capsules by mouth three times daily Gabapentin 100 mg capsule Discontinued 300 MG PO Three times daily May 16, 2019 12:00am August 22, 2020 9:54am Start: 05-16-2019 End: 08-22-2020 gemfibrozil 600 mg oral tablet (20 sources) Peroxisome Proliferator Receptor alpha Agonist Start: 04-27-2017 End: 01-14-2020 Gemfibrozil 600 mg tablet Discontinued TABLET February 23, 2019 11:00pm May 16, 2019 5:49pm Start: 04-27-2017 End: 12-20-2023 take 1 tablet by mouth once daily at bedtime Gemfibrozil 600 mg tablet Discontinued 600 MG PO Daily at bedtime January 14, 2020 9:34am December 19, 2023 11:52pm gentamicin 0.001 mg/mg topical ointment (20 sources) Start: 04-02-2023 End: 06-04-2023 Gentamicin 0.1 % ointment Discontinued 1 APPLIC TOPICAL .twice weekly 15 April 01, 2023 11:00pm June 04, 2023 3:53pm thin layer to left leg wound hydrOXYzine pamoate 25 mg oral capsule (20 sources) Antihistamine Start: 12-12-2020 End: 10-01-2021 take 1 capsule by mouth every eight hours as needed for muscle spasms Hydroxyzine Pamoate 25 mg Capsule Discontinued 25 MG PO Q8H as needed for Muscle Spasm December 18, 2020 11:00pm October 01, 2021 9:27am indomethacin 50 mg oral capsule (20 sources) Nonsteroidal Anti-inflammatory Drug Start: 03-05-2022 End: 06-04-2023 take 1 capsule by mouth twice daily as needed for pain Indomethacin 50 mg Capsule Discontinued 50 MG PO Twice daily as needed for Pain, Moderate March 04, 2022 11:00pm June 04, 2023 3:53pm administer with food or milk Start: 12-03-2021 take [address] [facility] twice daily at mealtime Indomethacin 50 MG Oral Capsule TAKE 1 CAPSULE BY MOUTH TWICE DAILY WITH FOOD Quantity: 60 Refills: 0 Ordered: 03-Dec-2021 DO Start : 03-Dec-2021 Active Start: 05-08-2017 End: 05-16-2019 take 1 capsule by mouth twice daily at mealtime Indomethacin 25 mg Capsule Discontinued 25 MG PO Twice daily with meals 60 May 08, 2017 12:00am May 16, 2019 5:51pm lidocaine hydrochloride 0.02 mg/mg topical gel (4 sources) Antiarrhythmic, Amide Local Anesthetic Start: 04-08-2024 End: 06-13-2024 lidocaine (Uro-Jet) 2 % gel Indications: Non-pressure chronic ulcer of other part of left lower leg with fat layer exposed (CMS/HCC) Apply topically if needed for mild pain 60 mL 2 04/08/2024 06/13/2024 Discontinued (Therapy completed) magnesium oxide 400 mg oral tablet (15 sources) Start: 12-20-2023 End: 01-21-2024 take 1 tablet by mouth once daily Magnesium Oxide 400 mg magnesium tablet Discontinued 400 MG PO Daily December 19, 2023 11:00pm January 21, 2024 7:20pm meloxicam 7.5 mg oral tablet (20 sources) Nonsteroidal Anti-inflammatory Drug Start: 01-19-2019 End: 12-19-2020 take 7.5 mg by mouth once daily Meloxicam (Mobic) 15 mg Tablet Discontinued 7.5 MG PO Daily January 18, 2019 11:00pm December 19, 2020 10:49am Start: 12-20-2018 End: 02-24-2019 Meloxicam 7.5 mg tablet Disc ontinued TABLET February 23, 2019 11:00pm February 24, 2019 1:26pm Start: 04-27-2017 End: 05-08-2017 take 1 tablet by mouth once daily Meloxicam 7.5 mg Tablet Discontinued 7.5 MG PO Daily April 27, 2017 12:00am May 08, 2017 1:00pm Start: 01-11-2016 take 1 tablet by chao every twelve hours Mobic 7.5 MG 1 tablet Orally bid for 90 days Dec, Active minocycline 100 mg oral capsule (20 sources) Tetracycline-class Drug Start: 03-16-2023 End: 04-02-2023 take 1 capsule by mouth twice daily Minocycline 100 mg capsule Discontinued 100 MG PO 2 times daily March 15, 2023 11:00pm April 02, 2023 1:12pm Start: 02-25-2021 take [address] [facility] twice daily Minocycline HCl - 100 MG Oral Capsule TAKE 1 CAPSULE BY MOUTH TWICE DAILY FOR 10 DAYS Quantity: 20 Refills: 0 Ordered: 25-Feb-2021 DO Start : 25-Feb-2021 Active omeprazole 20 mg delayed release oral capsule (20 sources) Proton Pump Inhibitor Start: 05-08-2017 End: 05-16-2019 take 1 capsule by mouth once daily Omeprazole 20 mg Capsule,Delayed Release(Dr/Ec) Discontinued 20 MG PO Daily May 08, 2017 12:00am May 16, 2019 5:51pm oxybutynin chloride 5 mg oral tablet (18 sources) Cholinergic Muscarinic Antagonist Start: 05-05-2023 End: 06-04-2023 take 1 tablet by mouth twice daily as needed for muscle spasms Oxybutynin Chloride 5 mg tablet Discontinued 5 MG PO Twice daily as needed for bladder spasms 60 May 05, 2023 12:00am June 04, 2023 3:53pm oxyCODONE hydrochloride 5 mg oral tablet (20 sources) Opioid Agonist Start: 12-20-2023 End: 12-23-2023 take 1 tablet by mouth every eight hours as needed for pain Oxycodone 5 mg Tablet Discontinued 5 MG PO Every 8 hours as needed for Severe Pain 10 December 20, 2023 December 23, 2023 1:06pm Start: 12-20-2023 End: 12-29-2023 take 1 tablet by mouth every four hours as needed for pain Oxycodone 5 mg Tablet Discontinued 5 MG PO Q4H as needed for Severe Pain 10 December 20, 2023 December 29, 2023 12:53pm Start: 12-20-2023 End: 01-21-2024 take 1 tablet by mouth every six hours as needed for pain Oxycodone 5 mg Tablet Discontinued 5 MG PO Q6H as needed for Severe Pain 20 December 29, 2023 January 21, 2024 7:38pm polyethylene glycol 3350 92832 mg powder for oral solution (20 sources) Osmotic Laxative Start: 12-23-2023 End: 12-29-2023 Polyethylene Glycol 3350 (Miralax) 17 gram/dose powder Discontinued 8.5 GM PO Daily 119 December 22, 2023 11:00pm December 29, 2023 1:40pm Start: 12-23-2023 End: 01-21-2024 Polyethylene Glycol 3350 (He althylax) 17 gram Powder In Packet Discontinued 17 GM PO Daily 0 December 28, 2023 11:00pm January 21, 2024 7:38pm potassium chloride 20 meq extended release oral tablet (20 sources) Start: 01-20-2020 take 1 tablet by mouth once daily at mealtime Potassium Chloride Dorothy ER 20 MEQ Oral Tablet Extended Release TAKE 1 TABLET BY MOUTH ONCE DAILY WITH FOOD Quantity: 30 Refills: 0 Start : 20-Jan-2020 Active Start: 01-14-2020 End: 08-22-2020 take 20 mEq by mouth once daily Potassium Chloride 20 mEq packet Discontinued 20 MEQ PO Daily 5 January 13, 2020 11:00pm August 22, 2020 9:55am On Hold: until restarted by your doctor Sennosides (Senokot) 8.6 mg tablet (9 sources) Start: 12-23-2023 End: 12-29-2023 take 1 tablet by mouth twice daily as needed for constipation Sennosides (Senokot) 8.6 mg tablet Discontinued 8.6 MG PO Twice daily as needed for constipation 60 December 22, 2023 11:00pm December 29, 2023 1:40pm Start: 12-23-2023 End: 12-29-2023 take 1 tablet by mouth twice daily Sennosides (Senokot) 8.6 mg tablet Discontinued 8.6 MG PO Twice daily 60 December 23, 2023 12:00am December 29, 2023 2:40pm Start: 12-23-2023 take 1 tablet by chao twice daily Sennosides (Senokot) 8.6 mg tablet Active 8.6 MG PO Twice daily 60 December 23, 2023 12:00am vitamin b12 0.5 mg oral tablet (20 sources) Vitamin B12 Start: 05-08-2017 End: 05-16-2019 take 2 tablets by mouth once daily in the morning Cyanocobalamin (Vitamin B-12) (Vitamin B-12) 500 mcg Tablet Discontinued 1000 MCG PO Every morning May 08, 2017 12:00am May 16, 2019 5:51pm Problems Active Problems Problem Classification Problem Date Documented Date Episodic/Chronic Abdominal pain (1 source) Unspecified abdominal pain; Translations: [Unspecified abdominal pain] Onset: 5 Episodic Allergic reactions (20 sources) Inflammatory dermatosis; Translations: [Dermatitis, unspecified] 05-16-2020 Episodic Blindness and vision defects (18 sources) Blurring of visual image; Translations: [Other visual disturbances] 06-04-2023 Episodic Cancer of bladder (20 sources) Cancer in situ of urinary bladder; Translations: [Carcinoma in situ of bladder] Onset: 3 04-06-2023 Chronic Cancer of prostate (20 sources) Malignant tumor of prostate; Translations: [Malignant neoplasm of prostate] Onset: 3 04-06-2023 Chronic Cardiac dysrhythmias (20 sources) Atrial fibrillation; Translations: [Atrial fibrillation] Onset: 5 04-30-2017 Chronic Chronic kidney disease (8 sources) Chronic kidney disease stage 2; Translations: [Chronic kidney disease, stage 2 (mild)] Onset: 3 04-06-2023 Chronic Chronic obstructive pulmonary disease and bronchiectasis (20 sources) Centriacinar emphysema; Translations: [Other emphysema] Onset: 3 Resolved: 1 04-06-2023 Chronic Chronic ulcer of skin (1 source) Non-pressure chronic ulcer of other part of left lower leg with fat layer exposed; Translations: [Ulcer of other part of lower limb] 04-08-2024 Chronic Conduction disorders (18 sources) Bundle branch block; Translations: [Nonspecific intraventricular block] 06-06-2023 Chronic Congestive heart failure; nonhypertensive (20 sources) Acute on chronic combined systolic and diastolic heart failure; Translations: [Acute on chronic combined systolic and diastolic heart failure] Onset: 3 Resolved: 1 04-06-2023 Chronic Coronary atherosclerosis and other heart disease (20 sources) Coronary arteriosclerosis; Translations: [Atherosclerotic heart disease of [place] coronary artery without angina pectoris] Onset: 3 04-06-2023 Chronic Diabetes mellitus without complication (20 sources) Diabetes mellitus; Translations: [Diabetes mellitus without mention of complication, type II or unspecified type, not stated as uncontrolled] Onset: 9 05-02-2020 Chronic Comment on above: Pt doesn't take any meds Disorders of lipid metabolism (20 sources) Hyperlipidemia; Translations: [Hyperlipidemia, unspecified] Onset: 5 04-06-2023 Chronic Diverticulosis and diverticulitis (20 sources) Diverticular disease; Translations: [Diverticulosis of intestine, part unspecified, without perforation or abscess without bleeding] Onset: 3 04-06-2023 Chronic Esophageal disorders (20 sources) Gastroesophageal reflux disease without esophagitis; Translations: [Gastro-esophageal reflux disease without esophagitis] Onset: 9 04-06-2023 Chronic Essential hypertension (20 sources) Hypertensive disorder; Translations: [Essential (primary) hypertension] Onset: 0 02-05-2020 Chronic Fluid and electrolyte disorders (1 source) Dehydration; Translations: [DEHYDRATION] Onset: 3 Episodic Fracture of neck of femur (hip) (20 sources) Closed fracture of femur, greater trochanter; Translations: [Nondisplaced fracture of greater trochanter of left femur, subsequent encounter for closed fracture with routine healing] 04-30-2017 Episodic Gout and other crystal arthropathies (20 sources) Gouty arthritis of right foot; Translations: [Gout, unspecified] Onset: 0 Resolved: 2 Chronic Heart valve disorders (20 sources) Aortic valve stenosis; Translations: [History of aortic valve replacement] Onset: 2 02-05-2020 Chronic Malaise and fatigue (20 sources) Asthenia; Translations: [Weakness] 05-16-2019 Episodic Open wounds of extremities (20 sources) Tear of skin; Translations: [Laceration without foreign body, left lower leg, initial encounter] 03-05-2022 Episodic Osteoarthritis (20 sources) Degenerative joint disease of hand; Translations: [Primary osteoarthritis, left hand] Onset: 1 Resolved: 2 Chronic Other aftercare (6 sources) Drug therapy finding; Translations: [Long-term (current) use of other medications] Episodic Other aftercare (4 sources) Anticoagulant effect; Translations: [commercial art instructor (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] Episodic Other aftercare (4 sources) Long-term current use of anticoagulant; Translations: [commercial art instructor (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] Episodic Other aftercare (5 sources) Encounter for therapeutic drug level monitoring; Translations: [ENC THERAPEUTC DRUG LEVL MONITORING] Onset: 3 Episodic Other aftercare (1 source) commercial art instructor (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; Translations: [HOUSEKEEPING STAFF CURRNT USE ANTICOAGULANTS] Onset: 3 Episodic Other aftercare (2 sources) Taking high risk medication; Translations: [Other fci (current) drug therapy] Onset: 4 04-18-2024 Episodic Other circulatory disease (4 sources) History of transient ischemic attack; Translations: [Personal history of transient ischemic attack (TIA), and cerebral infarction without residual deficits] 02-27-2024 Episodic Other connective tissue disease (4 sources) History of total replacement of right hip joint; Translations: [Presence of right artificial hip joint] Chronic Other connective tissue disease (3 sources) Presence of right artificial hip joint; Translations: [History of total replacement of right hip Z96.641] Onset: 1 Resolved: 2 Chronic Other connective tissue disease (20 sources) History of total hip arthroplasty; Translations: [Presence of right artificial hip joint] 12-19-2020 Chronic Other connective tissue disease (20 sources) Musculoskeletal pain; Translations: [Myalgia, other site] Onset: 0 04-30-2017 Episodic Other connective tissue disease (20 sources) Foot pain; Translations: [Pain in left foot] Onset: 0 04-30-2017 Episodic Other connective tissue disease (1 source) Other symptoms and signs involving the nervous system Episodic Other connective tissue disease (3 sources) Disorder of rotator cuff; Translations: [Unspecified rotator cuff tear or rupture of right shoulder, not specified as traumatic] 03-08-2024 Episodic Other connective tissue disease (3 sources) Biceps tendinitis; Translations: [Bicipital tendinitis, right shoulder] 03-08-2024 Episodic Other connective tissue disease (2 sources) Bicipital tendinitis, right shoulder; Translations: [Bicipital tenosynovitis] 03-08-2024 Episodic Other connective tissue disease (2 sources) Unspecified rotator cuff tear or rupture of right shoulder, not specified as traumatic; Translations: [Disorders of bursae and tendons in shoulder region, unspecified] 03-08-2024 Episodic Other connective tissue disease (4 sources) Swelling of left lower limb; Translations: [Other specified soft tissue disorders] 04-06-2024 Episodic Other connective tissue disease (2 sources) Nontraumatic rotator cuff tear; Translations: [Unspecified rotator cuff tear or rupture of right shoulder, not specified as traumatic] 03-07-2024 Episodic Other diseases of kidney and ureters (18 sources) Hydronephrosis with renal and ureteral calculous obstruction; Translations: [Hydronephrosis with urinary obstruction due to ureteral calculus] 05-05-2023 Episodic Other diseases of veins and lymphatics (5 sources) Venous hypertension of lower limb; Translations: [Chronic venous hypertension (idiopathic) with inflammation of left lower extremity] Onset: 9 04-06-2023 Chronic Other diseases of veins and lymphatics (17 sources) Chronic peripheral venous hypertension; Translations: [Chronic venous hypertension (idiopathic) with inflammation of left lower extremity] Onset: 9 06-15-2023 Chronic Other diseases of veins and lymphatics (20 sources) Venous insufficiency of leg; Translations: [Other specified disorders of veins] 05-07-2020 Episodic Other diseases of veins and lymphatics (10 sources) Stasis dermatitis; Translations: [Venous insufficiency (chronic) (peripheral)] 11-07-2020 Episodic Other diseases of veins and lymphatics (16 sources) Disorder of vein of lower extremity; Translations: [Venous insufficiency (chronic) (peripheral)] 11-07-2020 Episodic Other hereditary and degenerative nervous system conditions (1 source) Restless legs syndrome; Translations: [RESTLESS LEGS SYNDROME] Onset: Chronic Other infections; including parasitic (20 sources) Disorder due to infection; Translations: [Unspecified infectious disease] 09-07-2020 Episodic Other injuries and conditions due to external causes (16 sources) Injury of right knee; Translations: [Unspecified injury of right lower leg, initial encounter] 12-20-2023 Episodic Other injuries and conditions due to external causes (4 sources) Blood blister; Translations: [Other injury of unspecified body region, initial encounter] 04-06-2024 Episodic Other injuries and conditions due to external causes (1 source) Wound 04-13-2023 Episodic Other lower respiratory disease (20 sources) Hypoxia; Translations: [Hypoxemia] 05-17-2019 Episodic Other nervous system disorders (4 sources) Chronic pain; Translations: [Other chronic pain] Chronic Other nervous system disorders (9 sources) Paresthesia of upper limb; Translations: [Anesthesia of skin] 01-21-2024 Episodic Other nervous system disorders (4 sources) Hyperreflexia; Translations: [Abnormal reflex] 03-30-2024 Episodic Other non-traumatic joint disorders (12 sources) Hemarthrosis; Translations: [Hemarthrosis, unspecified joint] 12-24-2023 Episodic Other nutritional; endocrine; and metabolic disorders (12 sources) Hypomagnesemia; Translations: [Disorders of magnesium metabolism] Resolved: 1 02-26-2024 Chronic Other nutritional; endocrine; and metabolic disorders (4 sources) Hypomagnesemia; Translations: [Disorders of magnesium metabolism] 02-26-2024 Chronic Other nutritional; endocrine; and metabolic disorders (5 sources) Overweight in adulthood with body mass index of 25 or more but less than 30; Translations: [Overweight] Episodic Other skin disorders (20 sources) Thin skin; Translations: [Changes in skin texture] 02-19-2022 Episodic Other skin disorders (6 sources) Changes in skin texture; Translations: [Other specified disorders of skin] 03-19-2022 Episodic Other skin disorders (2 sources) Seborrheic keratosis; Translations: [Other seborrheic keratosis] 03-22-2024 Episodic Other upper respiratory disease (4 sources) Chronic laryngitis; Translations: [Chronic laryngitis] Chronic Other upper respiratory disease (4 sources) Bowing of vocal cord; Translations: [Other diseases of vocal cords] Episodic Other upper respiratory disease (4 sources) Laryngopharyngeal reflux; Translations: [Other diseases of larynx] Episodic Other upper respiratory disease (4 sources) O/E - dysphonia; Translations: [Dysphonia] Episodic Peripheral and visceral atherosclerosis (20 sources) Peripheral vascular disease, unspecified; Translations: [Peripheral vascular disease] Onset: 2 04-06-2023 Chronic Pneumonia (except that caused by tuberculosis or sexually transmitted disease) (20 sources) Pneumonia; Translations: [Pneumonia, unspecified organism] 05-17-2019 Episodic Pulmonary heart disease (20 sources) Pulmonary hypertension; Translations: [Other chronic pulmonary heart diseases] Onset: 3 04-06-2023 Chronic Comment on above: Moderate, RVSP 50-55 mmHg echo February 2021; Residual codes; unclassified (20 sources) Edema of left lower leg; Translations: [Localized edema] 10-15-2021 Episodic Residual codes; unclassified (20 sources) Edema of right lower leg; Translations: [Localized edema] 11-06-2021 Episodic Residual codes; unclassified (20 sources) Pain; Translations: [Pain, unspecified] 11-06-2021 Episodic Residual codes; unclassified (20 sources) Edema; Translations: [Edema, unspecified] 05-07-2020 Episodic Residual codes; unclassified (20 sources) Patient encounter status; Translations: [Encounter for prophylactic measures, unspecified] 04-30-2017 Episodic Residual codes; unclassified (20 sources) At risk for impaired skin integrity ; Translations: [Other specified personal risk factors, not elsewhere classified] 02-19-2022 Episodic Residual codes; unclassified (6 sources) Other specified personal risk factors, not elsewhere classified; Translations: [Other specified conditions influencing health status] 03-19-2022 Episodic Residual codes; unclassified (7 sources) Body mass index 20-24 - normal; Translations: [Body Mass Index between 19-24, adult] Onset: 4 09-29-2023 Episodic Residual codes; unclassified (2 sources) Body mass index (BMI) 24.0-24.9, adult; Translations: [Body mass index (BMI) 24.0-24.9, adult] Onset: 4 Episodic Residual codes; unclassified (2 sources) Body mass index (BMI) 23.0-23.9, adult; Translations: [Body mass index (BMI) 23.0-23.9, adult] Onset: 4 Episodic Residual codes; unclassified (1 source) Inflammatory disorder 02-26-2023 Episodic Skin and subcutaneous tissue infections (20 sources) Cellulitis; Translations: [Cellulitis, unspecified] 10-08-2021 Episodic Spondylosis; intervertebral disc disorders; other back problems (20 sources) Cervical spondylosis without myelopathy; Translations: [Spondylosis without myelopathy or radiculopathy, cervical region] Onset: 2 Chronic Spondylosis; intervertebral disc disorders; other back problems (20 sources) Sciatica; Translations: [Lumbago with sciatica, unspecified side] Onset: 2 01-14-2020 Episodic Syncope (20 sources) Near syncope; Translations: [Syncope and collapse] Onset: 3 02-05-2020 Episodic Transient cerebral ischemia (20 sources) Transient cerebral ischemia; Translations: [Transient cerebral ischemic attack, unspecified] Onset: 4 01-22-2024 Chronic Unclassified (3 sources) Permanent atrial fibrillation; Translations: [Permanent atrial fibrillation] Onset: 2 Unclassified (7 sources) Chronic atrial fibrillation, unspecified; Translations: [CHRONIC ATRIAL FIBRILLATION UNSPEC] Onset: 3 Unclassified (4 sources) LOW BACK PAIN, UNSPECIFIED; Translations: [LOW BACK PAIN, UNSPECIFIED] Onset: 2 Unclassified (20 sources) Inflammatory disorder; Translations: [Inflammation] 02-26-2023 Urinary tract infections (1 source) Urinary tract infectious disease; Translations: [Urinary tract infection, site not specified] 06-15-2024 Episodic Varicose veins of lower extremity (20 sources) Venous stasis ulcer of leg; Translations: [Varicose veins of right lower extremity with ulcer of unspecified site] 05-07-2020 Episodic Past or Other Problems Problem Classification Problem Date Documented Date Episodic/Chronic Administrative/social admission (20 sources) Other reduced mobility; Translations: [Impaired mobility and activities of daily living] Onset: 12-22-2023 12-22-2023 Episodic Calculus of urinary tract (17 sources) History of calculus of kidney; Translations: [Personal history of urinary calculi] Onset: 11-11-2023 11-11-2023 Episodic Cancer of bladder (20 sources) H/O: malignant neoplasm; Translations: [Personal history of malignant neoplasm of bladder] Onset: 10-11-2022 05-17-2019 Episodic Cancer of prostate (20 sources) History of malignant neoplasm of prostate; Translations: [Personal history of malignant neoplasm of prostate] Onset: 10-11-2022 05-17-2019 Episodic Conditions associated with dizziness or vertigo (20 sources) Dizziness and giddiness; Translations: [Vertigo of central origin] Onset: 10-11-2022 04-06-2023 Episodic Deficiency and other anemia (20 sources) Anemia; Translations: [Anemia, unspecified] Onset: 01-28-2023 04-06-2023 Episodic Diabetes mellitus with complications (20 sources) Type 2 diabetes mellitus; Translations: [Type 2 diabetes mellitus with other specified complication] Onset: 01-11-2019 Resolved: 05-14-2023 05-14-2023 Chronic Diabetes mellitus without complication (19 sources) Prediabetes; Translations: [Prediabetes] Onset: 05-14-2023 06-26-2023 Episodic E Codes: Fall (20 sources) Fall; Translations: [Unspecified fall, initial encounter] Onset: 12-22-2023 03-23-2023 Episodic Fracture of lower limb (20 sources) Fracture of patella; Translations: [Unspecified fracture of right patella, initial encounter for closed fracture] Onset: 12-22-2023 12-20-2023 Episodic Mood disorders (3 sources) Mood disorders Onset: 06-13-2024 06-13-2024 Other circulatory disease (1 source) H/O: heart disorder; Translations: [Personal history of other diseases of circulatory system] Resolved: 03-09-2020 Episodic Other circulatory disease (1 source) Personal history of transient ischemic attack (TIA), and cerebral infarction without residual deficits; Translations: [Personal history of transient ischemic attack (TIA), and cerebral infarction without residual deficits] Onset: 02-26-2024 Episodic Other connective tissue disease (2 sources) Pain in left leg Onset: 05-15-2021 Resolved: 10-09-2021 Episodic Other connective tissue disease (2 sources) Muscle weakness (generalized) Onset: 05-15-2021 Resolved: 10-09-2021 Episodic Other connective tissue disease (1 source) Sarcopenia; Translations: [SARCOPENIA] Onset: 01-09-2022 Episodic Other connective tissue disease (19 sources) H/O: gout; Translations: [Personal history of other diseases of the musculoskeletal system and connective tissue] Onset: 04-06-2023 04-06-2023 Episodic Other connective tissue disease (2 sources) Muscle weakness; Translations: [Muscle weakness (generalized)] 02-16-2024 Episodic Other diseases of veins and lymphatics (20 sources) Peripheral venous insufficiency; Translations: [Venous insufficiency (chronic) (peripheral)] Onset: 06-10-2019 04-06-2023 Episodic Other diseases of veins and lymphatics (12 sources) Other specified disorders of veins; Translations: [Venous (peripheral) insufficiency, unspecified] Onset: 12-23-2023 12-29-2023 Episodic Other injuries and conditions due to external causes (20 sources) Unspecified injury of right lower leg, initial encounter; Translations: [Knee, leg, ankle, and foot injury] Onset: 12-22-2023 12-20-2023 Episodic Other lower respiratory disease (11 sources) Dyspnea on exertion; Translations: [Other respiratory abnormalities] Resolved: 05-28-2021 Episodic Other lower respiratory disease (6 sources) Difficulty breathing; Translations: [Other respiratory abnormalities] Resolved: 05-28-2021 Episodic Other nervous system disorders (20 sources) Impairment of balance; Translations: [Other abnormalities of gait and mobility] Onset: 10-31-2022 04-06-2023 Episodic Other nervous system disorders (9 sources) Anesthesia of skin; Translations: [Disturbance of skin sensation] Onset: 01-21-2024 01-21-2024 Episodic Other nervous system disorders (1 source) Paresthesia of skin; Translations: [Paresthesia of skin] Onset: 01-21-2024 Episodic Other non-epithelial cancer of skin (9 sources) History of malignant neoplasm of skin excluding melanoma; Translations: [Personal history of other malignant neoplasm of skin] Onset: 01-11-2019 04-06-2023 Episodic Other non-traumatic joint disorders (8 sources) Pain in right shoulder; Translations: [Right shoulder pain] Onset: 06-15-2022 Episodic Other non-traumatic joint disorders (20 sources) Pain in unspecified knee; Translations: [Knee pain] Onset: 12-22-2023 12-22-2023 Episodic Other non-traumatic joint disorders (12 sources) Hemarthrosis, unspecified joint; Translations: [Hemarthrosis, site unspecified] Onset: 12-23-2023 12-29-2023 Episodic Other screening for suspected conditions (not mental disorders or infectious disease) (20 sources) Protein level - finding; Translations: [Other specified abnormal findings of blood chemistry] Onset: 02-26-2024 06-06-2023 Episodic Residual codes; unclassified (6 sources) Edema of lower extremity; Translations: [Edema] Resolved: 05-28-2021 Episodic Residual codes; unclassified (17 sources) Pain, unspecified; Translations: [Generalized pain] Onset: 12-22-2023 04-02-2023 Episodic Residual codes; unclassified (17 sources) Tobacco user; Translations: [Tobacco use] Onset: 01-11-2019 12-05-2022 Episodic Residual codes; unclassified (1 source) Other specified health status; Translations: [Other specified health status] Onset: 12-22-2023 Episodic Screening and history of mental health and substance abuse codes (16 sources) Ex-smoker; Translations: [Personal history of tobacco use] Onset: 10-11-2022 09-29-2023 Episodic Comment on above: QUIT 2000 1PPD; Superficial injury; contusion (20 sources) Injury of forehead; Translations: [Contusion of other part of head, initial encounter] Onset: 12-22-2023 12-20-2023 Episodic Unclassified (20 sources) Wound ; Translations: [Traumatic wound] 02-04-2022 Unclassified (1 source) LOW BACK PAIN, UNSPECIFIED; Translations: [LOW BACK PAIN, UNSPECIFIED] Onset: 01-02-2022 Unclassified (4 sources) Onset: 09-29-2023 Resolved: 04-18-2024 09-29-2023 NEGATED: Highlighted row has not occurred!Residual codes; unclassified (8 sources) Disease Episodic Results Test Name Value Interpretation Reference Range Facility [facility] Urine Cyt [facility] ([facility])on 08-16-2024 UVF[facility] & UC Diagnosis Info Invalid Interpretation Code 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 Diagnosis Summary - The [facility] FISH study detected normal copy numbers for chromosomes 3, 7, 17, and 9p21. 200 cells were analyzed in this evaluation. No evidence of aneuploidy for chromosomes 3, 7, or 17 or deletion of the 9p21 locus was found in cells present in this specimen. This test does not rule out the possibility of a low grade non-invasive papillary urothelial carcinoma. These findings should be correlated with cytology and cystoscopy results. * CPT: 72914, 23195. 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 Electronically signed by : on: 08/16/2024 13:39:45 Performed By: #### 1 [id number] #### [facility] [address] [place] [id number] Consent Formson 08-09-2024 Consent Forms [id number] [facility] Coding Summaryon 08-08-2024 Coding Summary HTMLBase 64 IigjhcdyONy9lLi+PGhlYWQ+P R6KCSIyP05gnJMcpH8vW0LFAQ lOSywgQVBQTElOSyIgbmFtZT1 kaXNjZXJu IC8+IP4zQSNeQiqvzZGvu1L7e EJ6X00spj2fQYxcwAV7QACyRl Vcdwxxm2strFj2YDniTyatThT t ZDAnaR66LKX4vV46Ut03wPMau IFjk7eubAd3NkRcFLDyKHF3mU jjOBckc3IgBNPxH40hfTAds5J 6 CLPjpBiuwHWhCcWlmPH0rW0yC Kttlfxcy4ifgjblLyr8qq46nU Ewz3Z4oJW1A0QksbS4CDPiaYY g JymooQOIfG6tbwtea3zbxeleL mKtXBGuTQg6OTi8RUTkoNnkNj KaNS80ZAK8NGObsiXdZ6LuFJP s jRzsMuB6j4D0Bd6HN1UKLdysJ 1VNTUFSWTwvdGQ+IG65xj89W8 CaTittPqy1KYGtMXS5cJJ3mW9 n HVMaVJqow6C7hBT3S9TxwoHvt b2li5kgEEIsOVqiU25pzYSnv6 A2SEGvtWE2LDAarYxuQfKaaP6 3 Oyc+OAIxwQxbx1DbBarqn0jpx 4horNm1AzizUTPnknEzeZryDW Q9y9YiTm4zBKLmqOJ7eCA6tF3 i JrPxOhC2DXrkM074LbAwmCAdN jweL65wF2JwsDG+KZClFop6TS XfmUwoKR8iQ8SkPKXotfxaeAJ m fNkeLD0iCTXrkyocMXDjjV2bB OIgR9h5DcHfDsV8AQbfJ9DjWY AstjacWh42kY7gFdLqGoI6DCi u S8TejyI8LJXmmVLlONkkMGC9W 54bl9O8FTLzRNSdGGC1bIV0nQ 1hbGlnbjogbGVmdDsgdmVydGl j CGogNDcbM213IBPmoCviRkWmA GluZyBEYXRlOiAgMDIvMjQvMj AyNTwvdGQ+EYOrOAE1yBzoDND n oQViTGtiTv1mtErgoCafAW2wM CXqfyadVDWlzW9vCRBbpFWyrS yjNE2kBQKnvkswa307IrIuKNL 0 BAVdoLNkU4QkgC2jYeMiZKSmV OOjT3TyvGWwTRgvS663PMldLu R6RBRavmIvI3NgYBHspHwkTfJ 0 i4I2Dq2Lv8SogsueU0LqzRRgP jKnCtkzIVk2R0BmPeybdEO+PC 16MHCcSK41RZo4FGA0yQdyVRw i ERTxN6CyeM0lFbEjWKTcLAOrX yc+PHRhYmxlIHdpZHRoPScxMD IpGiWhyHmjLR9hDz4lCXOdPFD v jTnpfEXeEwNie9jiEBHrRBizH K9tzKjiH6HtyYT0SDVih2u9Hv 52F30aS5UhbRF+WPUrkBC0pEX 0 iY5kJaQrGxE4FKscS184PwAqz LEpUfoag6yuj9lzjBg5ZzP4VN KxfwVvuKcwRSW9l9QcBu17F41 s IHdpZHRoPSIxNSUiIHZhbGlnb c0eyS4tLr1+SHGraND1uRE7nB 0fHtDaNdW6GFwtR715KrEziLU v Pufvl6bur1jugNa2ByOnPUTpc eBkeXvyOJC7v1WaEj25U9YwkZ ghx0SiNio1db47iSTts2C9qIG 9 Q2VeOKKbbfximLAfqPgrLB6dA OJiyktwZZApoJ3sORGvQ1w4Kl ZzQkZ0MRtoO9TcglV8GQLcwDG g FHUogOXOrK9dfruhx4ipirmrH gGnAJSeJKj9SLz1ITSuzDjuDb GqJCK9ScG5GEJ8vOZrlY2ymIz n pgpvwS6qHfy+RIF3mKPrkGNVO F7mRpyrpAB+SUNhVQN8jPwaNW hqMATilJ0qGHKaG3k9JiQhWpI 1 DLvrX4AvwmY7HIJqcHWtLPUrw EKDvW6kysqal4idkoojLeWaMI MvRPy0ECq9TVPddIodUhOgUEC 0 BtF0HIY6sPQsiV0lxHendupvh G9wOyc+CzcecVizBEM0WFp8U8 GcHcd6DZKaqNmaNB2vwSQbTEm u Kj2ejXwjjMpiTM9lEPJgdzhdn 610KkSau0ylVDNrpPCzMNgdXC Q0P98lw1X8CHAyEBWkRHK1yOP 4 rA0qkXpxkytnoGAhgIkjnuGvk QzbPSscTCueY752UYNioZhlKk IuJIb7D9GrNao0ZRRyfKmuWR2 n fUEuNMagOr1qtJdclTduVX2sT RFlcsdpu106LaBup7deYFPszF VrDZauZSW4J42ia0F4QHDqIGL w KIJ4wLD8iO5muSmnorpjfDDav MkaegAzkZfyDKaaTJuyU669ON CzdQsaZfBbmGg2T7KtByq4XEM z oYeuTD6zmNOiTCfaEm5ggOogq NglYP5xWZUwjxuyc226NqRlt2 kyNCLlaNXtUYdcAUT6I58yq7S 6 TEEtUALkAKS1fSU5pH5waAhct jogbGVmdDsgdmVydGljYWwtYW zdM078UJWbiSmdXcTpwZrajmB g CKgaIHo9N8GmIgkjhVL+PC90Y JXcRG00jWPgcNOmc7czeGo6Ot WdIFStDJH2gPovJSqyl0WuEPE t L97yiEHmj2B2YDXpvArliNOdG tWcgRV5xL7kMGvtclyem9wedn rqMneze2iytw40zL51N70tAPh p BVDiHJWiSERrXACvxMpscs4af G9wIi8+HUQijTJ2gDU9pB5eRM LsYeB5FWcsW407CoJwbHHoXxn j e2rhl5plaSj0PcL9ZZLgbrQzp DbiYIZ6e2ZkBm03J56qIUeyQR FqMPMgDFTnEEPjzKvmmj9tiB6 w Ii8+QUVvdBZ7eZX8sI2pPcEpN gZ5LLjxX037AnCovSXvSvpwN6 4pZ3JvcGF+DKXiLqn4NKFdeKn s ZK2mhRQvHImlBw7aEFY2QxBfS vMfMUvgF4VkWIVtobfyuuhjcI I0BZCqXXNfvP65Pm2ywDddQPZ w eRQZfS4ofdgow5svnqizLnNcY DTsFEb3UMi4WPHqeCvkHoUeGI X3KuP8VEQ7aWRqfE1wbAquvci g aL8uZ3ZlMKRkkmlxDf58lR7bF gBbXfM5MIvmNxs+RklTSCwgSk FNRVMgVzwvdGQ+ZRWnIIT5eZw l ZCuxSQIggG2gPYSvQ6l5DyOeH cF0LPuqT4BkBEItwtufBx95pQ 0cNxRoMpE8GTtpG4DkmjC2OXF w qUDcAZgiNZG9C38oa4X5FEXvZ VLpCAV1yCP1lD2ymAmkxeqaqN MecOxeziLnoPmkCNjuLRriL15 6 PMNzkWsdRqJnLsE6LsE8UlZ7L 3MhFka8CJAqfKtiRV9rsTZiRR xbYl6liBemzPwrWR4tYCNujcz w AHKqkS2yJUPpcWNegEiyQR3zZ IVdnitts753PrBvIYR2BIQtxH JkL4PcxT8kFoJjKZSuQPDzQ1Q l kCWbENwvJ777ABbkAbG7HDXtk dAtS6FoTEHqrMxxGjK0n4M4Xc 44OCBZZWFyczwvdGQ+PHRkIHN 0 xGgdHMwuYBPkgE4xQSYjU5a1Y cNlBnE1ACbmZ9WeNABwartoFe 62lD3nHkKnWoV7WYlkS6TeukS 6 PLIqxMBdCCouKNX9G91mc1H4L AZoXTJsSXG8zTG8kL7tnJlync ogbGVmdDsgdmVydGljYWwtYWx p Q095DLDuqFojHn5OHIU0O8GsR jr0XYLxdMlnOD9apAGqKPjxDn 7ydRtnlAmnKW4qOBOcnhazAJN k kH0fDUMzoMMlnIpxOF8rNRTfn tiit836XaWzRQL7OUHoxENcV7 VtiM8eUoIuAJEbURFxP3FlpOL t SIqsS152NCpmMsU8TKHsttSfI 9SaGRYucGihOtA6c7R4Qu2TVL wvdGQ+DS30fm33Y1QsSqptYsy 0 TUSlANT3qBC4oO8dZHXwPEggq 2N6lHB1M4MpqsHuyl2xf6ueJF PkFAbpQ40muUAzd1T4HBUeyBN 5 DSLacRwyUkHemA50Rba+PGNvb Wojl0CdHtcck9bth6cavMp0Wm AnFKZqorZzaMpdZRF5t6PtKr0 8 J57sOMbnEXTjSTHcOHCqWRUoq Fglwd7wtI8sUb3+KGPrtJI0tM G5yF7cGyKhIkK2TEvtU944RxL v hAYlPxrbs1ejh0zsmDr6KsXbD RRjwzPpkQxmJBW4z7YvDn38S7 ZrlCpov1MaJtd9di48jHFss8W 5 tBL9Z2GbGYKyckxzaYSqsTdfT W9aKZYahamzUDOeqT4vYRKeN8 t5GfRdWfC3MKedV5FxmwZ0WBZ v iLOiQGWalJRMmW2xjwiax2lye lneWqPhDETpNNw5IYh7ERFvlX lqBwJaWRI4PjB5WXT9jCUtbZ8 h pDybnqbbgP7rHlw+MVp9v3fbw PCpFT0cgVQ2VW21WH38jHUya4 L4qDO8F6VvZMCewcmytbbvcOC 6 WFTePSEffQ61Wo7kyDvpIy3aI JDeAOP3CCUlyEHwT8JvfX8mXm KvAMZhDAHnG2GvmBBbUQumE19 6 VOcsUdF2DNXjipHtT0UuSKHol FhfLnF1t3N4Zs7TNY97MA81FR 19iZPbp0F0cJK9L6MoAZNtrgp t ctlwyHT1PMVjPMFnqH48Hh1jd ZlbAd2dQBLlIYA0BOCyuSGmU4 EwtQ4gCtWrRZUpHULiJ2DnmAP t AWuoZ873HAukJlO1KSTlhhKhY 7UwDBPchItgZxB8s2D3Ew5RPy 21FV82PZ18dEGyi5A4hPF4A4S h JVQopcgpwnoxjQS0OJSgNXOti L39Zz2hnWhsUk0hYGAlIPQ5MI SqfQZnM6YwmM3mFyMhJNLoPJT w W4HdiXHeVTaiN733APkhLkO5B LOqvkLwG8BuTJVqiFcgWnG1t8 Y0Jn2CYGlziud7P0IhPhhfhZS + IF51FWUxUT09vKLnsUPwm8hak Nt8ClUbDIFbPTZ4gRogQWpuc9 OzCCZrV10fzVAzz5H5DNZrpUu h cHN (more content not included)... Normal [facility] ([facility])on 08-08-2024 [facility] Method of Extraction Voided Normal [facility] Comment on above: Performed By: #### 1 [id number] #### [facility] [address] [place] [address] [facility] Number of Jars [address] [facility] Comment on above: Performed By: #### 1 [id number] #### [facility] [address] [place] [address] [facility] Specimen Urine Normal [facility] Comment on above: Performed By: #### 1 [id number] #### [facility] [address] [place] [address] [facility] Type of Service Technical Only Normal [facility] Comment on above: Performed By: #### 1 [id number] #### [facility] [address] [place] [address] XR ABDOMEN 1Von 08-04-2024 [facility] [address] [place] [address] XRay Report Signed Patient: FANI CHUA MR#: [id number] : 1935 Acct:[id number] Age/Sex: 89 / M ADM Date: 08/03/24 Loc: RAD Attending Dr: Julio C Ramirez M.D. Ordering Physician: Julio C Ramirez M.D. Date of Service: 08/03/24 Procedure(s): XR abdomen 1V Accession Number(s): [id number] cc: Julio C Ramirez M.D.; MARÍA ANDERSON [place] [id number] Patient Name: FANI CHUA MRN: [id number] date: 1935 Sex: M Assigned Patient Location: RAD Current Patient Location: Accession/Order Number: [id number] Exam Date: 08/04/2024 10:46 Report Date: 08/04/2024 10:47 At the request of: JULIO C RAMIREZ MD Procedure: XR abdomen 1V KUB: CLINICAL INFORMATION: Kidney stone follow-up COMPARISON: None. FINDINGS: No suspicious urinary tract calcification. No bowel obstruction or free air. Presumed vascular calcifications. Surgical clips are seen involving the pelvis. Osseous structures demonstrate degenerative change. XR/XR abdomen 1V IMPRESSION: NO SUSPICIOUS URINARY TRACT CALCULUS. Impression dictated by: Henry Ramirez Jr., D.O.08/04/2024 10:47 AM Dictation Location: [place] [address] Electronically authenticated by: [id number] Y Date: 08/04/2024 10:47 Dictated By: Henry Ramirez M.D. Signed By: 08/04/24 1238 DD/ 1047 TD/TT: [employer] Legal Advisor: Tom Grossmanogselena jackson MD - 08/04/2024 [place] [address] XRay Report Signed Patient: FANI CHUA MR#: [id number] : 1935 Acct:[id number] Age/Sex: 89 / M ADM Date: 08/03/24 Loc: RAD Attending Dr: Julio C Ramirez M.D. Ordering Physician: Julio C Ramirez M.D. Date of Service: 08/03/24 Procedure(s): XR abdomen 1V Accession Number(s): [id number] cc: Julio C Ramirez M.D.; MARÍA ANDERSON [address] [address] Patient Name: FANI CHUA MRN: [id number] date: 1935 Sex: M Assigned Patient Location: RAD Current Patient Location: Accession/Order Number: [id number] Exam Date: 08/04/2024 10:46 Report Date: 08/04/2024 10:47 At the request of: JULIO C RAMIREZ MD Procedure: XR abdomen 1V KUB: CLINICAL INFORMATION: Kidney stone follow-up COMPARISON: None. FINDINGS: No suspicious urinary tract calcification. No bowel obstruction or free air. Presumed vascular calcifications. Surgical clips are seen involving the pelvis. Osseous structures demonstrate degenerative change. XR/XR abdomen 1V IMPRESSION: NO SUSPICIOUS URINARY TRACT CALCULUS. Impression dictated by: Henry Ramirez Jr., D.O.08/04/2024 10:47 AM Dictation Location: [place] [address] Electronically authenticated by: [id number] Y Date: 08/04/2024 10:47 Dictated By: Henry Ramirez M.D. Signed By: 08/04/24 1238 DD/ 1047 TD/TT: Cyber Legal Advisor: [facility] Radiology Study observation (narrative) [facility] XR ABDOMEN 1VOrdered By: Reji desaiogdewayne Radiology on 08-04-2024 [facility] Work Phone: Coding Summaryon 07-22-2024 Coding Summary HTMLBase 64 GwvyzsknQXr4mQw+PGhlYWQ+P U0VQPBoS19zzPTxtG4wD2VNSP lOSywgQVBQTElOSyIgbmFtZT1 kaXNjZXJu IC8+KK3eSJOhYtzbbILun8K2g CR7W16dnw1iJFtxlEV2TMJfQr Aumyapg6xfcLu7PHegXavaPeZ t TCQboQ06KBZ9mC20Or65cGHhh IZqv5joyXj2AiXjVFXsDDB6pN zyXNeeh4LsZOSeY46jnYOac7E 6 NZIuvObwiZZsXkBgcQM9kO1kN Tucgslef6myaltkLas7nm55yA Whs0H6kKO0S3QcdyP9FLLxxAT g UgcreTMBkX7vfifdm2ezkgquU dJiHTCzBRk9CDd8UJNcwBcgHg PzKC18GBW6VMHggnHbW8FkKGU s tDybMzS4k8M1Ao9MG6ESKtzsJ 1VNTUFSWTwvdGQ+ZG97md15Q9 NzMbumPhw1OOIpJIY7xTR7nZ3 n QZJpALvsj2W7nTL6B1BxolLot k0su6yrJNLhKEptD66ltHLyw7 G4VITdcNI4VSJeuPnhXsMizH2 3 Oyc+WPZseEodb8EnKwsxc4nda 5gkdSx6TeeyERAkxuZpmOpoPE X9f9DdVw6jMXBhbXF5jFZ8sR7 i VlEvAnH6ZDqxS062TyFjwNIpC bwqL60cB7SgsXQ+OBMhDut2KB RdgZykRJ4pP8RsVDRvdeznpWE m aQcfSB8hPSLpzjugNLArkH0mH MKxH2h1IlQfHkW1ABioR4LbLY BfzmxkQn33dI8aLqFbOzI0UYd u E9FskdA0MVIxuYOdGDdhWCZ0A 80kr5Y4HHXcHIVpERQ8cMG2hG 1hbGlnbjogbGVmdDsgdmVydGl j IGadULunM259QJWtfYkgNfDtW GluZyBEYXRlOiAgMDIvMDcvMj AyNTwvdGQ+XCLnATQ8vVzzBJH n lYFsFAzaGv7ywVsshIipHT5mA ANqifxqJOBamB3kNCQhaABsmN roUG6dZXBckpvid309JmRiLHJ 0 ZBPlrVXaT2EqmD9zKnYtXZIrM NEkK0ObuEGzXYszV232IXbnKn G0MCJohiQuY2DkUBYhmVjwWiU 0 f0M8Ss9Ar3OyzjbvZ7OakYYzO qIbXjzyEXi6M0GhIjgitTE+PC 86UKZeOF76XNu3NDT5eIinQLv i LJZmG2KulS2eFyIvCVGrCOBiK yc+PHRhYmxlIHdpZHRoPScxMD LxLqFpbXrjQT7qPz5qWNNtVYD v qCrgmYLsVqNhi2okGSWvICviR B3ylGacM0RukFB0OZHoe9s6Os 71B81wW3SbqUB+PVZinZQ5xQW 0 nX5vMfIjVnL8TKguR264XdAzz GBdOpnsu5tcp8hvnIi8WkJ8TA JqwgNgjBhrPBP9l4TgNn11Z74 s IHdpZHRoPSIxNSUiIHZhbGlnb b6hjL4kPw4+DLCrhWE2dBB9aB 6lDjJxTsC7VLdvF110XrFynKP v Hxljh7xky0hfeWt2UpErFJMln pDbyUufVSW0p4UhTt41C7UjqE utp4IjWlo0im53cSRar0F2iVW 9 I6BcJPWyzfwtnRYlaIsxLQ2aN RAtpepjQSKsxR6uTEOpS8g4Oi YzWwE4XWwaG9DvxpQ0XDDsqGY g ULVgtGPMfM5tvhdbs6oepakyV aOyCEHjVXh7LQx4EXKefLzmXw ExNGB0NhB2CHW8pRCftV4atXh n izrdtV2ySoo+NNX7kWEdaDMAU I2tZmfaqCP+SOAuIMF5zBmlYN jdDUKesQ4fWGSjM2r0YxHdOkG 1 CYjrI3YhyrC1CIStsUOsDGPvk VDVlX4gugjbx5pilihqDxHiJX LuLXs8ARq2COCkwVdaGmMkYBQ 0 TjF1IQI3nWIhcO8hmRhivxssy G9wOyc+FaulaDktJQH9ICz9W1 JvIby8PTRrwStrCX2zdNNiSMt u Ol7peQoraOeqXV9yUZVspabzu 831JfIky7vgVBPnjAAiJLxiIN T7O22vr6S4NIWqRZUlFRB7gFB 4 mT1edQjmjlfntLGwoRhkkyArr MgbUZfpEPdzL353ZJJamAarHb GmNGd9L8OcLnd5KQOylJntWX4 n wLBsCJznYn8irEptlLoeSX2jF RDglovyf703GqRvp4hgHLXddQ DhHBdfWYT8K44xa3W4MNHuTBE w MHS3aHX9uS7ldPtnaoddiRUhx BvzxqTxqGlaAIvtRCusQ397IV ZxbKwgZnEjkEp6U9ZgZwh8ENO z iPesRD5asSCxLTdwPi8hvSrhf CweHP5cEUUmvmjqb464BpKmm0 brTQNtaXFjKFmpCGN0O28me5B 6 ZWZuYFYrZTU7fSG5lT1lcZhhb jogbGVmdDsgdmVydGljYWwtYW xyB159HCLdcOfwKuLfvPmrevP g MDrcPBu2M3ItQmelsNP+PC90Y AWtIK07uUWpcZZdn9cfePc6Xo MnNYVbXDA6mXfkDLtxj5LzDFU t Q03gsAElm8A9YZWsyAexcALlN cHyfCT5iK7pTFsimphdi8omca abTcfxi7cokz34pS08V41lZJe p NHXvJQYiQXJzCTCmiDhfgu4xh G9wIi8+FOKjjPL5aFM7zS1kYY XkGcU9YMgoM085OyJssMRkCuo j r2qak7mwkEy6VyD4QHViaeEpy GkbQXX7u7LeMt80Y79iQQgyZJ EuPITlIJYrXHPakEupth0uoE2 w Ii8+SGModTI5oKN4sE9cVgRvG uN9KIhyY065YfEfsOIxItqaH6 8zB1GesPY+LSYxDya1HHAgyPq s IO0bmXZmDYglBx6xQIR5FyDrR zBqPUncQ5HeDKKraqossxgwfK M4NRHjUXMegR96Hq6wxScdYNV w zIYGwY7bqrbcg5jjlktaKsOmP JBqYYk2NHi9EWKoqHdgTrRfWG B6JjU7XYR8cWTrnB2eoLvoeud g tX0gP5YkTJZezueqDq82eZ0qC zNuXiV0DXnyMmk+RklTSCwgSk FNRVMgVzwvdGQ+EQKdFUZ9eNg l ZKwcVFUqeY0iGBFpN1w4WvMwN tN4MYhqX1PkPMGjqdncDo05eT 2mPxYjAnV7MTnfN5WovaO2NDT w hUQsQGbtGTK1O77uj9T1TPQjH ORcZGU5jUZ3uX6jmWvhmffbdP MuuPktphGcrCzsNXmpLJzpH16 6 JXOtjWyuGrWpJsP9RtW6JxF7F 2ZgVsq0RKOgbFhrYA9swRLtFO ubFx7hcFsegHqnDM5lYJBwogq w CFWhoS0kVVYgjOChnVxjZP5qE SAbeqpgo432MxVrBJA0AIGnuU JoS4EztB6hQjLvZOUrLXOcI3W l xMNkRNiyE482LLfxPkX8YOKqc kRcD1HvNBVmxEfbTgB0r3Z5Bg 44OCBZZWFyczwvdGQ+PHRkIHN 0 dRjmCNzsVZOdsA7eWPGsC9a9A mTkXvA0OIouH4NvMPDtzosnZa 19jN1dShYxGlJ1SGbmE8ChauR 6 OSHdgYXeWAwfZAW9F21rv1T0F UOhAELpYWV2jKS3dJ2vcRxzkj ogbGVmdDsgdmVydGljYWwtYWx p R291JLDkgJouOi8RMCT9W7NsD se2NTPajHxvLL9hqYRtWSbpYn 1ggWadrUkdEX2zEGUolsidUUW k vB6nXBTpbSAimJbaQO8hHXQgm sdki427AwBePCA1GGNpbFMyJ3 CwsG3xZnIdTOQfKDHtJ2XvrUS t GQarO766TTrjFlS4VNWulsAmC 0SnVGMgfNnaGxO6a8T3Hk2KEK wvdGQ+EM03le54G9OmXmcaCjo 0 ZILwESR3nDT5hL2qKBNpHYaky 9W6bSM6L7TlinOrjs2sj4umVG EzGWtaL96qzNLjv0R3TIYkpKJ 5 AEOpwBooOfMbyF12Aeu+PGNvb Znvw4QzOjwld9eqs2ezjRn6Pl KkJWAmbkEqyJsqTIU4t6PpEi1 8 P48hJMzbWWGgAHSfCMMpHHBkw Udrqu9yoE9tQx3+VGWloLS2nL G8hC1oJbRuVoJ6IBycS332DtG v fVWyEzoqw0pxt5ryhEr9YzDzW XYwdgKcaKnmVND1s0SlUd89Z4 KlhNnaj3HmRlv9vg30hRTgj6J 5 bSL2X8NoWEEkpwcrkRYnkLbfA E8lKNEcawibUYAxdO1iZEMaG3 v0SzBaPpJ9XSsnC2JxcsH4TDB v cNEoTJGmjARNuM1lgdynb2jtx nnkXhScUXJnTVk5FPu5VSXurU gtYiBwSKT2SwJ4EEO9eBVofQ0 h oNnlhdjzbA9mQvr+RTt9k8xhq BNdYK5ahVU7PM62OE91gOEaj6 S7oEC7D2QoADLdpkltjjhyuCB 6 ANGxXDQlnI66Tl3bgUncBz2pW YAgODR6YUTjeGOqN0TwcZ3vWq MxCTFjCEBxO3MqbQFcKDozX65 6 YUtiFeM8QQMskiFjK6YrJAGnr CisQlP7j1Z3Hc3OVG13OX21DN 59pNTkk0G3ySQ9S6DlWLEfnml t sdyjfIK8GABxKPZfaF84Yd3wh XcgWw9hTQCuTFB2CROxyUUvV8 BayP0gJdMuHLFhAGSnX8PleAY t SZfoP773ZEliDtZ3VNBaqzRsJ 9RrRZHhwHyjJnG7a0L7Jp3IEc 77TM01XL54aLVfw7I8oRD1A8H h XAJeycrgfqfbiWR7KQTzVALjc N82Bg6aiJlxWz6oZJDvLEG7NV VkoWOlW9BpdT7gPpIvWTHtHGA w C7PngOJfWAgtW602JYqyLyY3K VAvcmQwL5YbONLkyYoiUbE0r5 Z2Iv3JTMydlim8H1JvRxtswYI + HH82UNHqKR75jOYxhLVvb8lmr Uq0VvIlYVZrVOP5jKipVUxhx7 CmAZXuP39kwKVjc3W6RWZgnEj h cHN (more content not included)... [facility] Coding Summaryon 07-15-2024 Coding Summary HTMLBase 64 LjomwuejYFj3pHi+PGhlYWQ+P A0DOHUfH52wsEEvqY4dV2KDEN lOSywgQVBQTElOSyIgbmFtZT1 kaXNjZXJu IC8+QW1hFOTjKfdmiUTaw1X2x XA3S37cdt2eNYboxEI7PUMaAe Zkmbkqt5rslSf0GQwuRfawXsL t FVMyhA71IKB4wN11Bg73tXJhp GVac4jikNs2IcBqFLGlDKI6sU ytNJrui6PlFFDxH53kaPMhb1B 6 JVNvjFscrTIiZrBcrJL0oB5lS Urgcqetw2eivdmfVof4vu83nV Xjh3S6yPN9S7TgeuG1RKMvnNT g DmzbgFYMhG2dkmada7mgqtnsV aDaCDFcHGc6WZi7PGAwdTogBn MmUG73RNW7JFIxhmIuU9OsJWH s wRvsDoG8p7S6Jt3XV3IGPumiQ 1VNTUFSWTwvdGQ+ZW09zk11A4 BlUfbqQup9CGApVYX6hKT1nN4 n UUOvLTfaz0A5jWN4V6NzrhYie v9wq2iiIWZlVZrwM48chXWkm6 D5TNUjbFS8MWBtfOrtNdFipV9 3 Oyc+LEQpiTjdy3BtMmnns1zaz 5ylhXp5VtzgQJFlbqJqtShlRB M6q5YtXr4lIHSclAE4cOE3nL6 i VaRnDpM5TVpvR757BfAzeTBsY zrhS50rC4UesEN+OFFqAvf7KU KfmQjmXF2tI4QkZZJkuyyjeJW m aQxsSH1xWOVecmymESKglZ2gC XVbN4e9EvTmKhK7NUfwY2QxRT LtkxigKw92fE2nUtXqCvO8XBb u O8RaghU0CFNlxQHrDNkeTND8I 87et6R2NKNnILKvYAD7eIL4hO 1hbGlnbjogbGVmdDsgdmVydGl j ULdtLVdrZ244UWGqgIxpFlJbY GluZyBEYXRlOiAgMDEvMzEvMj AyNTwvdGQ+DUCfBJV1wZnyHES n tOPlFIydDl1vfAlnoUttBX9eO EBdahvyEDKkaV4tRLMhoZDmqW qmVJ7hNPAuqqabn796LmDbWTQ 0 RMLepNGfO7XohT8vFmJkZWMhC QOmP1SkdUXvQOnlO297QHbaIq G3UMUfryHvM7AnZSRhgFykOzH 0 t9K3Xs9Ug1YgphrhT8RmePRmK tPoOmbcPHs4V0ZxDqpvhJZ+PC 19ADShXQ63XLe5AVA4yDsuMCv i OSOkK8IwzV4iYeRrFSLyLHJiG yc+PHRhYmxlIHdpZHRoPScxMD OoSyEpsUtyNB0xFu4yZFNpXHF v dWwhjVJzZgGjg4kcIHOpKZvzC Q6oeYosH1CqpPD5ZVZcv3o0Lx 57W22gN2RgbLS+VLYynMD6iUT 0 dW9tCoUlFnI8YLpfT999WdYuv WKsJvfcf8nrt9mjiSk6PpN0NZ IinjMvjDbvMFJ9k9ZhLc19S37 s IHdpZHRoPSIxNSUiIHZhbGlnb i8ljS6cXo3+XVEbeRG6oQF6vH 4xOhEhBjH8ZIjbO659ShLeoNS v Mvrby1rpj6rmpAl1VvQwQBQbf yAkuZdpAES6a7GmYw91Y2FepG mpm7BvGpi7pt98wOWhe2X9xCN 9 P6WvSFEzxeorsAQkrOnzOQ9jU MYhrrkqSWQyhV3mCPJnS9u9Ib AsDaA1ICdcQ7SydyA7WBEbxFF g NMMgbSWCvN1megalx5nskdwlS xJdXMFtBAa5LVu2VDNggNokDq LjCSI2CgO0NCV9mJZqhT7ibEr n uegnnO8rAnh+AVA9sWSpjTYTF C3tCjwplVQ+BQMuLUE6pKlfNZ rpEDLieI8nKLNdP5w9UuTcFaS 1 ETozI7IuiwU3THQnuTRxCEUic NBIzH0uavujn0btsnjuPmPeIX KjRGz7SCz2SYLffYyoOzFlXYA 0 TtN1PGV8pSNpoU3euKjigpbgc G9wOyc+PmpqfGtkIAM3AXe2L4 GgGcz8EPRctDiiVY6xfFZwNIx u Ov6cwKiwqWkuLJ5dFOCxpqhmx 155SmVbb2knNNRwqGJvWBtrHC H9B29rf8K4VUQiJLUyQGD7dTO 4 wS5ukUhkbteypTOnvUpglmPeg LxmKDjeNUxbV240NKKunKslLc NgJKo3O5RoJai7OHVkcWjtXY7 n wOJaLNvyWr8ryYqmdTthIE9vL FEcjjiql883KpVhh6xrQYLqfM XmQTwgHEE0G48gp8U8NLUcHVS w ETC2iAU5pJ3dmEpfkucskWHii HdgpfOduVvcLCmsEPfyU315SS QhcLnzCjKwnZf4H5HpSha0ADA z lEcgYP9djNDyMRebMo9ehDmdr CpfWK5gHBQujexaw145NlYxp3 beYVYryRFyNNreCHX4V55al8I 6 LGDxOFWnUER9kNJ3sW8gxBlzs jogbGVmdDsgdmVydGljYWwtYW pcZ987GFZacOxpWfQvlEkmocA g FSjfVIy2S2NoFujubWP+PC90Y DMgVL43rTUljGNps5heeLf3Mi OmOSIiXOG5qUjeOHyvc1ScTKF t M27zmPUgq9T1DKMpaNyiyJXdR hKzvEN8gL3gAHelrjwyq9lbgw tgNbxpr4wlsi97nU76A92pBDt p UEHxNUZyXZNyAFNulCvngh6tq G9wIi8+XATmgWE3uIL5sI6lXD KjGdQ1TNidK378RmNgaQViBnd j f0mfi1dymCb0ZuK1BTSdwyNim BavCUS5i3AyDx08E47xOIliNO IhSRTvNTTvBTZnsMahxi3jkD1 w Ii8+YDPcbMW8nLP1lX5iQiBaN jV1BNdaD299JyPzzILgFehdL8 5eS1ZgfWH+TBJhVfz8LFHqpCh s GW3asRKoEWacKh7xCLD3EdUrY jCwBFobJ8EwRCUmfovfvslzaD D1FAHfLSXruL40Kq0uuUxaSUB w eXXGtF4nmpkez4cqozusVxEgR JDsZUb2WGe3OVJcxBcoTrIxBB Z2PxA2FCC6ySUeiI8hzNlrqml g lO1tF2YyVLCivtowGk70tO4eX sIyFjS4OLdhHfq+RklTSCwgSk FNRVMgVzwvdGQ+IQMoMWH6mZr l XKyyULIauY8oDPVsA7w8XlLlS dS0EPoiC6EkTMHmvpivRm61hR 3cEgCdWcQ7EYstW8LrcpZ0VRJ w uGCjJCmeACM4Z66lc7T7EZJcU PKcIVZ9tWF2fT7vbOmwefdnoH QfbIpkihUegKylVRsgEHzvC81 6 KTDspKkqUtSmEuV6VgB9PzU4J 2VpHci0XUDzuLbzNW8jgTXpRH ahZf2xoOjepGirJZ7lRYRvoxs w XQHnsY4aYAVbrYShiBvkCF5qS IDtmnrsr733SoDgPZL4PLOreJ WzU0VapW3xNpSpLYChPTCsI0T l yTBcHPqwT083QSjbKiD9ZCKxv wUqJ1GoMXUubLjvZxD9h6G4Rs 44OCBZZWFyczwvdGQ+PHRkIHN 0 tKtmJJfwELHpiY1oSFFqH1r5M gEhQeC0CSoaP3CiNUPceqrcGy 50kN2uMtRfTtH9VOljK0OmxtN 6 WEVtlFByYHxgTAY5R70ey1Q1L MKpXPZtKTR1zUH2lJ4wbUhytt ogbGVmdDsgdmVydGljYWwtYWx p U672GDScuLjpWv9GCFF4E5ZyY jp8UNAjnJqnKR6kaPPsNRemEe 2opGsbkZbrMP3fNOXzdsqvVJV k uV4yYTVjrHYcsFnwWY9oNCKav yppp353TjBoLCY5BVPvvOKyT0 UwzA9oVuLzQZXgDIBfP8IrkDE t LEivB159MGapJrH1GWMroyPyS 3EsMAEdvTbrYfS3j4P6Lj7GFK wvdGQ+GV10qb96E3KsRxydMdo 0 YCGqHVU6gHR2eP4qZBZbYAdnw 0K6rSD9J1YvvqWczy0cg3boUZ UiPRvvA75mcNMwk8K2OUVmwOT 5 SUGxaJkcXoVknB97Mlt+PGNvb Qocd3CqLjrwv5xqm6mjlZt0Kt BbOKOnanLnhGdiPYE4e5NoKv3 8 E98iAEfgBGAjAHBeFPGzODBig Obbfv3ahI5aUx6+SZEysRG5oI X7pQ1qBfMzUjR1MJvmE663RnL v oUCaVxyng4bwl8srqSj4ExMxI OLitjQvbDltTLY3z1SmAd09X6 AouBmgj1BgSvx7th27zSEew8X 5 qRM1H2KiRFVjwaqsaHWqjXqgG E3pKDYihcxvEDIpsJ1hAPAaZ9 t9WnVqEdG8TBycX7JhvxV0DRN v zQArAIPtdQKRpL0rllknn7cee hmxLmCzOYWsCVn5LVn7EFSllZ dpLvIoGDV9HmD1KCJ5zWBajS0 h dSmfjgkeqL2gMzu+DIw6v7tkg GIiNJ9leIC5EK02XV93bFBhl7 O4oBG8I7BwAKGnuueiybwbiLA 6 FWFsAGOalA08Cn5hvGjaPi1zO KByXNX4UURzgTSmX5TqxW1kTk KoAZEhDTNbV3GkeCWrWXlgH17 6 TGpwSmP6AKKvunWxW4NwZJNba EjbGbP5c2H7Ci5ZGW66JQ25IZ 62hCSrp9V7yXG2K3JnIXCnohb t kxruaSG0HEFySJOykP99Ci9us KyvOu6rWHMrIMY9GEZduDNyB3 BloE3mBzRpJVRfRCCpT4XhzWS t UAisW341EMefRoB1BNTlwxDwM 4LaWCSrwYucDpH2o9L8Ft9KPo 21QH85LF31qXOdx1M4yOM5C0T h APLyyygigvigcQT0GFCqFSUhn M33By4qcJqaPy9aAAKeREQ2MD FsyXXjI8CtjL0nRiBoLGDwKJK w Y8KwuRNcFGjyE719KCctYbC0Y IYqtgFwU4LwNQIkcKesYgI2h1 A9Ww8LFWvbzht3C4XqDcozyLB + XQ87TIFnXR68tPInlMSwd0yni Nl3WkRyXKEhRON5aVqbTAfoo5 BvRKQfB34jxBEhd0Q8NCNeqIw h cHN (more content not included)... [facility] Coding Summaryon 07-08-2024 Coding Summary HTMLBase 64 NmxywlrzQGs8gJj+PGhlYWQ+P B0HQAAvK13jqPAdrA3aJ6DFYO lOSywgQVBQTElOSyIgbmFtZT1 kaXNjZXJu IC8+GX0gGLEiOozuqBBof1Y5u OJ6C48wpp0yRIozrOD9TUOiMz Zlomgcm0phqQo3QUprBwxqBwA t VYFvpM15QTZ2zK23Nh58hFCoh AOiy3clhPy7MzWpBIImFWP4rQ siKDjke3XjSWEcU75nrXRyb6F 6 OJDtuYjhqTJdOiNscRA6zB4wH Plaimreh2zsswefLfm0em25vR Qgd3J0qQH9L5ZrtdZ9LJWisVS g SaydzGVVlZ3bveslf1ryycwiD oErQNOeZYn0PPg3DDRiwLrfDk YuJF78BSY1EYSjytKfI0QnXSB s tEcuFvH7j1H1Jd6HN3OZEaczE 1VNTUFSWTwvdGQ+OE34xi17W1 XiOkluCjv0OIEeCAS5bUU2yN5 n DARyZUpsw3V0fBA6F0QyimMke w3um2miEBFxXGzbX98phTOts9 O6DSCxqVN1XKXlhRxaXdLxqV5 3 Oyc+PQQbzVwzl0BrMppit4pyn 6yxvXv7WqvoKRKvxnUzwGyeXW Z2f7CtUc1oPXRqxXC5tTP9iJ4 i FdCnEgN3MXnsI483YuJddZRrJ qgmM07jY1DpjQJ+PEAmVdr1HN ShiLitSM7jY1XnVVQmxxggpUK m oNncBC3zXEQrztraZTPwjC6lS LKcA7k7IcKoZiC0KOsxR3WiGD EtbllqBp27aR3nVuNbZrF4FQn u C7MtheT5ORSeqPPmXVrnWGN3P 26xc7I1KTEiKCEvBKF1hTO4aV 1hbGlnbjogbGVmdDsgdmVydGl j YPojNUowT311YMBjgGmcLqXlI GluZyBEYXRlOiAgMDEvMjQvMj AyNTwvdGQ+SSDjGKE6dFjlGKC n yWDcIGvtBe2yoDwokMhhZX2gF KCoxdxsQSOxpK4qLBEokBAswZ mmJK4qPCNdrjiuo739AbAwOPK 0 EOAuhCOqP6WdqS2cViIfADXtG NSnD1WqvIWvGMxtT211FKhhCi S2BEPkdkOiV8QfXVEzfVunMuZ 0 w3T7Eg2Wi9RrzyboM4AqcOFnU qMkRieaDMq7F3QeLiusmCZ+PC 07FXWbST77VLs5FBR9qVndUXb i KHByG3KzqP6qNiUuXTSzBJRrQ yc+PHRhYmxlIHdpZHRoPScxMD UqWfBfqEdvHD2aRp5wOHYyQNG v yWsumDElSuLhi4ccTAQeSQcyQ S5ovDahW4HpdWC0OSRhk8u0Qm 35M45mX0RyfGM+ARTifRL4uLI 0 rL4jIiZpCxG6GMuoJ077HgTxb XKaIhkhk6lii2mpbUy6FlA9FW YfaeVmnGgeIFO9g6WzMp49G53 s IHdpZHRoPSIxNSUiIHZhbGlnb e3qyE1vYy1+QTHqiQE2jRW6qZ 7zDeCyJyL3KYasY233GkQxqPM v Evxco3ymp8lfnOo1NyMiHZHcl cGvtAjjQPW1l7BoYj46R4LirF hft3GlJpp1bj92nTTty0J8eSD 9 U7KiQYQvreyteMZnwPijAP7jJ CRecdokXYHfmE7bKZJuH1c5Ld FxDtE2XMoxM0HrrbT2RUKrzCD g JAApfYPDaZ5nepoxn1funowbH kCuTBAyHAn5LQc4QAKimFuhBg SnTAV2JjG1XSP2dLVpaL6dlRv n rhvfvZ6iTra+QGV6lSBkiSJOK Y7eApzgxFG+NZKsBPE9bCbxKM lsVTFfjJ3mHQJlR2d2VhIgRhX 1 QWofN5EmtnA8PZRtnFEpTOXvm CHQnU3clnyzl9oqvzriWoKiWL EbKYy0PWd4KCIleRvcQlCmGCG 0 WcL7QSN2gTZkcR6qcJfrqfggv G9wOyc+UxyeaVqcCEB1CMt1F7 JbPje9MFHkbYgtYM0asDEsQIz u Aa4hmWqnvOvuNH2pNSKzrjlqw 649PiScx9mvUOIuxHOrSRfrMG Y8E52kt5W8IWIqWSDkTDV1hNS 4 wJ4xoUlrkqfnpDKspBmjvgBfk XkdMUfuWQogW320BQDggLhwBk GuYBa3R4NwXef1ZFWueFicQJ8 n rYFdWDdbUf2wtRdglNohCD0lL YNktmsnp302ImVvs1jaGAMibC CzETzhUPX9N02eq5Z4WNMfTJR w BWJ6vGM5eG3ykEvvqdwiuJTuk RvdakSowZfpEZioSWwkT588IG JlzPoiWtGssWu8E5HmPnw0OKS z vXmfTT4ezPVmCMhmAe5meEtqp KfhBR3aOCXvywoqm414KbOjc2 agITOoxUJyMCiyAVX4E95kq3K 6 XYMuOLHvSFH9oMW3oO4dfOzwp jogbGVmdDsgdmVydGljYWwtYW peY306ZYRayFdvHpSdeBdionP g VGviZHf4A1DrJneftTH+PC90Y MMvQT83dAThaPEyp9kxfQq8Py IsKFEzKKX0gPbsCWbpb9LdALW t W83wwTBhn1V5GZRabFdbxPVwG hAtyMF4oI5lUIzqtzqep2cstz tzFteby0yedd55hV36O21sVAd p CWCeHAEnPCNlBBUpxJgwoc0kd G9wIi8+TRUujED8lZP7aD2qTV CdBuR5RIiwP000TvFajCLkDlf j t6rap4eciQo6FnO3JIGlpzWpt GvzKXZ1t8GwWb80N18tDYqmCM ItIEGtEPDzVINemLbhyd8taA5 w Ii8+CXQunER7xWU6hA8sLzOwA iP5MUtfS302KfXrpLCiQqihQ4 2qB4XbwCX+BYOcJzz6YMQmmVn s MX4sgLUzZMqdDx0cSGT4IyFdY mXyRPpwQ7PcRALapgdrxoltuN O4KTQdDTMmtG46Dq4bkUgvZQI w nQGVuX2lkzabe4jcnpqpGvNgM JCyUMz8ODq1GXYjuGoaWvVcEC W1KtZ4VJY5cPTvuG2nbGuhkja g nF6uU0MxHRPthdmdJl14jM1yJ kRjTgK1HYuzDug+RklTSCwgSk FNRVMgVzwvdGQ+ZRFzDCW0bWv l PKnnERXkmS1mYAOcT6w2XtBwM sV2QEhoK9EsWAGvagldOu58xF 5hQpLiCzZ0WOryX7ZrmxM5KXZ w sKIwLRteEVH4G30id3N8QHFiT OEkQBI4rJY9rA8ifYizzjagjN GjxWltcmQudQllZOoaFDnlO33 6 VUFifGxuTlLwYoH7SgP9SeE8F 8XnYuq1ENZbxElaWK6laDMwZF gjOz6ygVyjhYahUA3mZYGpxap w NZSkzV2fEYYzeUSyjSmmYR2rG UJsenqzs543AtSzQFX3EMZobN IeJ5WufT9zJjMqIJVaKHBdD7T l yZQmRQifP237PMceKxN4PRCro oCdC8TrGBUgtSkhGmX9g0Z8Ib 44OCBZZWFyczwvdGQ+PHRkIHN 0 aUevJJvsEAGpdV4mKQXjJ1j5J uZdPaP9NEqeF8GfZAVfokhbAf 87xR0rSdVpXuE4RYmaI2DkggM 6 SMHqdCZzJUisWGI8V64hp2M1X DIeSQKdJID0tCP2dC0rhOmmmx ogbGVmdDsgdmVydGljYWwtYWx p F370EFJegFoqIm5WQKN7B5MmK gr2PNYldPuuYN3bgJYiQRnhNk 2utRmxhBdsOS1tBNUmxjviPME k bK9xKNZopCCxgZktRI1sEQJwj bzzm923SmVuHOL6IFFnpVWiB8 JbuG8oIxPfETHyFQZjH6AawOE t PKqrP429IFtmHpB8FVFgbiSeQ 8OrVKSdpUohAlM9l1C1Qm0ICY wvdGQ+LI58tz68R5KrClvsDhy 0 CTTsFTK1vIS2qJ0tYFMtJEnpz 5T5bZV9R6YmelWqny7nd7pnFW WiIYhxA61vhORzy3V6WGAqlWH 5 JKDowKutMpYllO75Qvc+PGNvb Zlun6RvAntgy2yyu5sveZl6Ow KsYZFxjjImaVljVRZ4j7XnUu4 8 P17gSHtuMNYhEDJbWFNdNGOnw Glhhy4jzT4xRm1+GDHhmIS1kA K3pB8rQkHtTcW4IMbxK991GdE v aREeBfjyd4bwl4agcPi4GxDxI MEenlPugHboTOM2o4PrBu11C7 IvnLdjp9VaAhd4dk98rDMxy5U 5 fDC9H7PdKEGtycokzRCcvEswJ O3qEGBdtdlrLNGjfR3cMDRpK1 b4XvTuMxP3BWhvG2BphdK7ZQS v vAIwHPAtoJGYdW3quejxf7kmh qtlTjMaUMUpYCr9WSi2KOFayA qbEhUyIGW0KdU7BXE1eYYnwD9 h xHuixkldqT9rQio+MUl9d5fhx MOoCT3ehQD1MJ28QI94hVBzi8 V5fKI3B1HbKXNebvcpcynipIN 6 RRSdQLFepS38Hw8yiTtyHm9wP HWcMPG8OKImdUOrC7JzgT5xHa VxPXMjOEOnK8MbtBNbQDtcH63 6 VLtrQhV5JRAtbzFcJ9LoLNIxi EwmXvP0x7G0Ha3YYP16CS86EV 60cIAef5O4rIB8A8WnHUUlskk t zbjjvDZ1DQYhTSTjzB58Qi4wz EclLk4fGTErWEP7OVSynTVsN0 YkuW3dIrRaPFIyJTQrD0EnhUZ t DFqtI576KStsDdT2QFCkkgRqR 9MdMVSdkPcjFzY5r4L3Vy4NMc 55PZ75LS28jNFpr1K3bEW1T3Y h SDQowrmwjtgczKK0PMNhUPBdp B74Gb9oeHudKz5bZZNoBNT3NH VnhKXmQ2FngC3rQdBsIYOmCSM w W9FupGWgVZzrE398POloNnF0V YInxnVrJ0TwIITzoPawBoT9t6 W7Kw2SBUsckkv9Q8NsEtojsFG + KN06YYRxAM18aMQkcDVnz7mka Xq4EzMyFDRkHNU1sGxrMOgox0 OkBHTbI81muHXso6T8BXGfrSg h cHN (more content not included)... Normal [facility] Alanine aminotransferase [En zymatic activity/volume] in Serum or PlasmaOrdered By: Gely Lin on 06-15-2024 ALT [Catalytic activity/Vol] Alanine aminotransferase [Enzymatic activity/volume] in Serum or Plasma 7-52 [facility] Albumin [Mass/volume] in Ser um or Plasma by Bromocresol green (BCG) dye binding methoOrdered By: Gely Lin on 06-15-2024 Albumin BCG dye [Mass/Vol] Albumin [Mass/volume] in Serum or Plasma by Bromocresol green (BCG) dye binding metho 3.5-5.7 [facility] Alkaline phosphatase [Enzyma tic activity/volume] in Serum or PlasmaOrdered By: Gely Lin on 06-15-2024 ALP [Catalytic activity/Vol] Alkaline phosphatase [Enzymatic activity/volume] in Serum or Plasma 34-104 [facility] Anisocytosis LM Ql (Bld)Orde red By: Gely Lin on 06-15-2024 Anisocytosis Ql (Bld) Anisocytosis [Pres ence] in Blood by Light microscopy [facility] Appearance of UrineOrdered B y: Gely Lin on 06-15-2024 Appearance (U) Urine appearance Abnormal Clear [facility] Aspartate aminotransferase [ Enzymatic activity/volume] in Serum or PlasmaOrdered By: Gely Lin on 06-15-2024 AST [Catalytic activity/Vol] Aspartate aminotransferase [Enzymatic activity/volume] in Serum or Plasma 13-39 [facility] Bacteria [Presence] in Urine by AutomatedOrdered By: Gely Lin on 06-15-2024 Bacteria Auto Ql (U) Bacteria [Presence] in Urine by Automated High None Seen [facility] Basophils Auto (Bld) [#/Vol] Ordered By: Gely Lin on 06-15-2024 Basophils (Bld) [#/Vol] Automated basophil count 0.0-0.2 [facility] Basophils/100 WBC Auto (Bld) Ordered By: Gely Lin on 06-15-2024 Basophils/100 WBC (Bld) Automated basophil % . [facility] Bilirubin Test strip Ql (U)O rdered By: Gely Lin on 06-15-2024 Bilirubin Ql (U) Bilirubin.total [Presence] in Urine by Test strip Negative [facility] Bilirubin.total [Mass/volume ] in Serum or PlasmaOrdered By: Gely Lin on 06-15-2024 Bilirubin [Mass/Vol] Bilirubin.total [Mass/volume] in Serum or Plasma High 0.3-1.0 [facility] Comment on above: Samples from patient s who have taken Naproxen have shown spurious elevation in Total Bilirubin levels. A metabolite of Naproxen, O-desmethylnaproxen, has been shown to interfere with the Jenramuik-Rob method for measuring Total Bilirubin. Blood Cultureon 06-15-2024 Bacteria identified Cx Nom (Bld) NO GROWTH 5 DAYS PERFORMED BY: [place] [address] PATHOLOGIST ERECTING CRANE OPERATOR SHIVAM CORREA M.D. Normal [facility] Comment on above: Performed By: #### P T #### [address] COVID Cepheid NegativeOrdere d By: Gely Lin on 06-15-2024 SARS-CoV-2 (COVID-19) Ab IA Ql COVID Cepheid Negative [facility] Comment on above: This is a duplicate Cepheid Xpert Xpress CoV-2/Flu/RSV Plus RNA by RT-PCR result to be used for statistical tracking purpose only. COVID-19 / Flu A/B / RSV PCR on 06-15-2024 SARS-CoV-2 (COVID-19) RNA SHARRI+probe Ql (Unsp spec) COVID-19 Cepheid Result Negative for SARS-CoV-2 RNA by RT-PCR Flu A Cepheid Result Negative for Flu A RNA by RT-PCR Flu B Cepheid Result Negative for Flu B RNA by RT-PCR RSV Cepheid Result Negative for RSV RNA by RT-PCR COVID19 Blank Space ---- Reference: Negative COVID19 Blank Space ---- Cepheid Disclaimer The Cepheid Xpert Xpress CoV-2/Flu/RSV Plus has Cepheid Disclaimer not been FDA cleared or approved; this test has Cepheid Disclaimer been authorized by FDA under an EUA for use by Cepheid Disclaimer authorized laboratories; this test has been Cepheid Disclaimer authorized only for the simultaneous qualitative Cepheid Disclaimer detection and differentiation of nucleic acids from Cepheid Disclaimer SARS-CoV-2, influenza A, influenza B, and Cepheid Disclaimer respiratory syncytial virus (RSV), and not for any Cepheid Disclaimer other viruses or pathogens; and this test is only Cepheid Disclaimer authorized for the duration of the declaration that Cepheid Disclaimer circumstances exist justifying the authorization of Cepheid Disclaimer emergency use of in vitro diagnostic tests for Cepheid Disclaimer detection and/or diagnosis of COVID-19 under Cepheid Disclaimer Section 564(b)(1) of the Act, 21 U.S.C. 360bbb- Cepheid Disclaimer 3(b)(1), unless the authorization is terminated or Cepheid Disclaimer revoked sooner. PERFORMED BY: [facility] [address] [place] [address] PATHOLOGIST ERECTING CRANE OPERATOR SHIVAM CORREA M.D. Normal [facility] Comment on above: Performed By: #### C EPHEID NEG, COVID19 FLU RSV ####[facility] [place] [address] [facility] [address] abdomen pelvis wo conon 0 06-15-2024 CT abdomen pelvis wo con [facility] [place] [address] [place] [address] CT Scan Report Signed Patient: Fani Chua MR#: [id number] : 1935 Acct:[id number] Age/Sex: 89 / M ADM Date: 06/15/24 Loc: ER Room: Type: [facility] ER Attending Dr: Copies to: Gely Lin APRN Ordering Provider: Gely Lin APRN Date of Service: 06/15/24 CT/CT abdomen pelvis wo con: abdominal pain CT Abdomen and Pelvis withoutcontrast TECHNIQUE: Axial imaging with 2-D reconstruction. . The CT exam was performed using one or more the following dose reduction techniques: Automated exposure control, adjustment of the MA and/or Kv according to patient size, or use of the iterative reconstruction technique. COMPARISON: 12/20/2023 History: Abdominal pain. Left flank pain. Fever. History of prostate and bladder cancer nonspecific mild left perinephric stranding. LIMITATIONS: None LOWER THORAX cardiomegaly. Mild atelectasis. LIVER: Hepatic steatosis hepatic granulomas. GALLBLADDER: Cholelithiasis identified. BILE DUCTS: No dilatation SPLEEN: Splenic granulomas. PANCREAS: Unremarkable ADRENAL GLANDS: Unremarkable KIDNEYS:Bilateral renal cysts bilateral renal scarring/atrophy. AORTA: No abdominal aortic aneurysm identified. Atherosclerosis RETROPERITONEUM: No significant retroperitoneal abnormalities identified. MESENTERY:Unremarkable SMALL BOWEL: The small bowel loops are nondistended. APPENDIX: The appendix is normal. COLON: Diverticulosis. URINARY BLADDER: Streak artifact limits assessment. REPRODUCTIVE SYSTEM: Streak artifact limits assessment. PNEUMOPERITONEUM: None PERITONEAL FLUID:None BONY STRUCTURES: Bilateral hip arthroplasties no pelvic surgical clips likely secondary to prostatectomy. ABDOMINAL WALL: Unremarkable CT/CT abdomen pelvis wo con IMPRESSION: Nonspecific left perinephric stranding. Bilateral renal cysts. No hydronephrosis. No visualized renal or ureteral stone. Limited assessment of the distal ureter and urinary bladder secondary streak artifact. Colonic diverticulosis. Impression dictated by: Trey Murray M.D.06/15/2024 2:39 PM Dictation Location: [place] [address] Transcribed By: [facility] 06/15/24 1439 Dictated By: Trey Murray DO 06/15/24 1433 Signed By: 06/15/24 1439 Normal [facility] Calcium [Mass/volume] in Ser um or PlasmaOrdered By: Gely Lin on 06-15-2024 Calcium [Mass/Vol] Calcium [Mass/volume ] in Serum or Plasma 8.6-10.3 [facility] Carbon dioxide, total [Moles /volume] in Serum or PlasmaOrdered By: Gely Lin on 06-15-2024 CO2 [Moles/Vol] Carbon dioxide, tota l [Moles/volume] in Serum or Plasma 21.0-31.0 [facility] Cepheid COVID PCR Negativeon 06-15-2024 SARS-CoV-2 (COVID-19) RNA SHARRI+probe Ql (Unsp spec) Negative Normal Negative [facility] Comment on above: Result Comment: This is a duplicate Cepheid Xpert Xpress CoV-2/Flu/RSV Plus RNA by RT-PCR result to be used for statistical tracking purpose only. PERFORMED BY: [facility] [address] [facility] [place] [address] PATHOLOGIST ERECTING CRANE OPERATOR SHIVAM CORREA M.D. Performed By: #### C EPHEID NEG, COVID19 FLU RSV ####[facility] [id number] Chloride [Moles/volume] in S aime or PlasmaOrdered By: Gely Lin on 06-15-2024 Chloride [Moles/Vol] Chloride [Moles/vol ume] in Serum or Plasma 98-107 [facility] Color Auto (U)Ordered By: Hai Lin on 06-15-2024 Color (U) Color of Urine by Auto Yellow [facility] Comprehensive Metabolic Pane rui 06-15-2024 Albumin [Mass/Vol] 3.8 g/dL Normal 3.5-5.7 [facility] Comment on above: Performed By: #### C OVID 19 [facility] #### [facility] [address] [place] [id number] [facility] Albumin/Globulin [Mass ratio] 1.2 {ratio} Normal [facility] Comment on above: Performed By: #### C [address] #### [facility] [address] [place] [address] [facility] ALP [Catalytic activity/Vol] 81 U/L Normal 34-104 [facility] Comment on above: Performed By: #### C [address] #### [facility] [address] [place] [address] [facility] ALT [Catalytic activity/Vol] 23 U/L Normal 7-52 [facility] Comment on above: Performed By: #### C [address] #### [facility] [address] [place] [address] [facility] Anion gap [Moles/Vol] 12.6 mmol/L Normal 6.0-15.0 [facility] Comment on above: Performed By: #### C [address] #### [address] [address] [facility] AST [Catalytic activity/Vol] 29 U/L Normal 13-39 [facility] Comment on above: Performed By: #### C [address] #### [address] [address] [place] Bilirubin [Mass/Vol] 1.6 mg/dL High 0.3-1.0 [facility] Comment on above: Result Comment: Samp les from patients who have taken Naproxen have shown spurious elevation in Total Bilirubin levels. A metabolite of Naproxen, O-desmethylnaproxen, has been shown to interfere with the Jendrassik-Grof method for measuring Total Bilirubin. Performed By: #### C [address] [facility] #### [facility] [address] [place] [id number] [place] Calcium [Mass/Vol] 9.1 mg/dL Normal 8.6-10.3 The [facility] Comment on above: Performed By: #### C [address] [facility] #### [facility] [address] [place] [address] [place] Chloride [Moles/Vol] 98 mmol/L Normal 98-107 [facility] Comment on above: Performed By: #### C [address] #### [facility] [address] CO2 [Moles/Vol] 27.2 mmol/L Normal 21.0-31.0 The [facility] Comment on above: Performed By: #### C [address] [facility] #### [facility] [address] Creatinine [Mass/Vol] 1.02 mg/dL Normal 0.70-1.30 [facility] Comment on above: Performed By: #### C [address] #### [place] [address] [place] Creatinine Clr Calc Pharmacy 50.06 Normal [facility] Comment on above: Performed By: #### C [address] #### [place] [address] [place] GFR/1.73 sq M.predicted MDRD (S/P/Bld) [Vol rate/Area] mL/min/{1.73_m2} Normal [facility] Comment on above: Performed By: #### C [address] #### [address] Globulin (S) [Mass/Vol] 3.3 g/dL Normal [facility] Comment on above: Performed By: #### C [address] [facility] #### [address] Glucose [Mass/Vol] 98 mg/dL Normal 70-100 The [facility] Comment on above: Result Comment: [facility] Glucose Reference Range is dependent on time and content of last meal. Glucose of more than 200 mg/dL in a nonstressed, ambulatory subject supports the diagnosis of Diabetes Mellitus. ADA recommended reference range Performed By: #### C [address] [facility] #### [place] [address] [place] Potassium [Moles/Vol] 3.8 mmol/L Normal 3.5-5.1 [facility] Comment on above: Performed By: #### C [address] [facility] #### [place] [address] [place] Protein [Mass/Vol] 7.1 g/dL Normal 6.4-8.9 The [facility] Comment on above: Performed By: #### C OVID [address] [facility] #### [facility] [address] Sodium [Moles/Vol] 134 mmol/L Low 136-145 The [facility] Comment on above: Performed By: #### C [address] [facility] #### [address] Urea nitrogen [Mass/Vol] 18 mg/dL Normal 7-25 [facility] Comment on above: Performed By: #### C [address] [facility] #### [address] Creatinine [Mass/volume] in Serum or PlasmaOrdered By: Gely Lin on 06-15-2024 Creatinine [Mass/Vol] Creatinine [Mass/v olume] in Serum or Plasma 0.70-1.30 [facility] Dipstick and Microscopicon 0 06-15-2024 Appearance (U) Cloudy Critically abnormal Clear [facility] Comment on above: Order Comment: Healt hcare Worker?: N Performed By: #### C [address] [facility] #### [address] Bacteria,Urine 3+ High None Seen [facility] Comment on above: Order Comment: Healt hcare Worker?: N Performed By: #### C OVID [address] [facility] #### [place] [address] [place] Bilirubin,Urine Negative Normal Negative The [facility] Comment on above: Order Comment: Healt hcare Worker?: N Performed By: #### C OVID [address] [facility] #### [place] [id number] [place] Color (U) Yellow Normal Yellow [facility] Comment on above: Order Comment: Healt hcare Worker?: N Performed By: #### C OVID [address] [facility] #### [place] [id number] [facility] Glucose Ql (U) Normal Normal Normal The [facility] Comment on above: Order Comment: Healt hcare Worker?: N Performed By: #### C [address] [facility] #### [address] Hyaline Casts,Urine 0 [LPF] Normal 0-8 The [facility] Comment on above: Order Comment: Healt hcare Worker?: N Performed By: #### C [address] [facility] #### [address] Ketones Ql (U) Negative Normal Negative The [facility] Comment on above: Order Comment: Healt hcare Worker?: N Performed By: #### C [address] [facility] #### [address] Leukocyte esterase Test strip Ql (U) 4+ High Negative [facility] Comment on above: Order Comment: Healt hcare Worker?: N Performed By: #### C [address] #### [address] Mucus,Urine 1+ Critically abnormal [facility] Comment on above: Order Comment: Healt hcare Worker?: N Result Comment: PERF ORMED BY: [place] [address] PATHOLOGIST ERECTING CRANE OPERATOR SHIVAM CORREA M.D. Performed By: #### C [address] #### [place] [address] [place] Nitrite,Urine Negative Normal Negative The [facility] Comment on above: Order Comment: Healt hcare Worker?: N Performed By: #### C [address] [facility] #### [place] [address] [place] Occult Blood,Urine 3+ High Negative The [facility] Comment on above: Order Comment: Healt hcare Worker?: N Result Comment: PERF ORMED BY: [place] [address] PATHOLOGIST ERECTING CRANE OPERATOR MOHAMED M EL-FAKHARANY M.D. Performed By: #### C OVID [address] [facility] #### [address] pH (U) 5.5 [pH] Normal 5.0-9.0 [facility] Comment on above: Order Comment: Healt hcare Worker?: N Performed By: #### C OVID [address] [facility] #### [place] [id number] [facility] Protein (U) [Mass/Vol] 70 mg/dL High Negative Th [facility] Comment on above: Order Comment: Healt hcare Worker?: N Performed By: #### C [address] [facility] #### [address] RBC,Urine 50 [HPF] High 0-4 [facility] Comment on above: Order Comment: Healt hcare Worker?: N Performed By: #### C [address] [facility] #### [address] Specificy [place],Urine 1.017 Normal 1.001-1.03 0 [facility] Comment on above: Order Comment: Healt hcare Worker?: N Performed By: #### C [address] [facility] #### [address] Urobilinogen,Urine Normal Normal Normal The [facility] Comment on above: Order Comment: Healt hcare Worker?: N Performed By: #### C [address] [facility] #### [address] WBC [place], Urine Many High None Seen The [facility] Comment on above: Order Comment: Healt hcare Worker?: N Performed By: #### C OVID 19 [facility] #### [address] WBC,Urine Innumerable High 0-4 [facility] Comment on above: Order Comment: Healt hcare Worker?: N Performed By: #### C OVID 19 [facility] #### [place] [phone] [facility] ECG 12 lead ECGon 06-15-2024 ECG 12 lead ECG [facility] [place] [address] Electrocardiograph Report Signed Patient: Fani Chua MR#: [id number] : 1935 Acct:[id number] Age/Sex: 89 / M ADM Date: 06/15/24 Loc: ER Room: Type: [facility] ER Attending Dr: Ordering Provider: Gely Lin APRN Date of Service: 06/15/2407/09/1533 ECG/ECG 12 lead ECG: Abdominal Pain Copies to: Test Reason : Blood Pressure : */* mmHG Vent. Rate : 86 BPM Atrial Rate : 78 BPM P-R Int : * ms QRS Dur : 136 ms QT Int : 370 ms P-R-T Axes : * -67 77 degrees QTcB Int : 442 ms Atrial fibrillation Left axis deviation Nonspecific intraventricular block Confirmed by Bipin Ortiz DO ([id number]) on 06/15/2024 3:57:48 PM Referred By: Electronically Signed By: Bipin Ortiz DO Transcribed By: MUS Signed By Bipin Ortiz DO [id number] Normal [facility] Eosinophils Auto (Bld) [#/Vo l]Ordered By: Gely Lin on 06-15-2024 Eosinophils (Bld) [#/Vol] Automated eosinophil count 0.0-0.45 [facility] Eosinophils/100 WBC Auto (Bl d)Ordered By: Gely Lin on 06-15-2024 Eosinophils/100 WBC (Bld) Automated eosinophil % . [facility] Epithelial cells.squamous [# /area] in Urine sediment by Automated countOrdered By: Gely Lin on 06-15-2024 Epithelial cells.squamous Auto (Urine sed) [#/Area] Epithelial cells.squamous [#/area] in Urine sediment by Automated count [facility] Erythrocyte distribution wid th Auto (RBC) [Ratio]Ordered By: Gely Lin on 06-15-2024 Erythrocyte distribution width (RBC) [Ratio] Erythrocyte distribution width [Ratio] by Automated count High 12.0-14.8 [facility] Erythrocyte morphology findi ng [Identifier] in BloodOrdered By: Gely Lin on 06-15-2024 RBC morphology finding Nom (Bld) RBC morphology [facility] Erythrocytes [#/area] in Uri ne sediment by Automated countOrdered By: Gely Lin on 06-15-2024 RBC Auto (Urine sed) [#/Area] Erythrocytes [#/area] in Urine sediment by Automated count High 0-4 [facility] Globulin Calc (S) [Mass/Vol] Ordered By: Gely Lin on 06-15-2024 Globulin (S) [Mass/Vol] Serum globulin measurement by calculation (mass/volume) [facility] Glucose [Mass/volume] in Ser um or PlasmaOrdered By: Gely Lin on 06-15-2024 Glucose [Mass/Vol] Glucose [Mass/volume ] in Serum or Plasma 70-100 [facility] Comment on above: ADA recommended refe rence rangeRandom Glucose Reference Range is dependent on time and content of last meal. Glucose of more than 200 mg/dL in a nonstressed, ambulatory subject supports the diagnosis of Diabetes Mellitus. Glucose [Mass/volume] in Uri ne by Test stripOrdered By: Gely Lin on 06-15-2024 Glucose Test strip (U) [Mass/Vol] Glucose [Mass/volume] in Urine by Test strip Normal [facility] Hematocrit Auto (Bld) [Volum e fraction]Ordered By: Gely Lin on 06-15-2024 Hematocrit (Bld) [Volume fraction] Hematocrit [Volume Fraction] of Blood by Automated count Low 38.8-50.0 [facility] Hemoglobin Test strip Ql (U) Ordered By: Gely Lin on 06-15-2024 Hemoglobin Ql (U) Hemoglobin [Presence ] in Urine by Test strip High Negative [facility] Hemoglobin [Mass/volume] in BloodOrdered By: Gely Lin on 06-15-2024 Hemoglobin (Bld) [Mass/Vol] Hemoglobin [Mass/volume] in Blood Low 13.0-17.0 [facility] Hyaline casts [#/area] in Ur ine sediment by Automated countOrdered By: Gely Lin on 06-15-2024 Hyaline casts Auto (Urine sed) [#/Area] Hyaline casts [#/area] in Urine sediment by Automated count 0-8 [facility] Hypochromia LM Ql (Bld)Order ed By: Gely Lin on 06-15-2024 Hypochromia Ql (Bld) Hypochromia [Presen ce] in Blood by Light microscopy [facility] Ketones Test strip Ql (U)Ord ered By: Gely Lin on 06-15-2024 Ketones Ql (U) Ketones [Presence] i n Urine by Test strip Negative [facility] Lactate [Moles/volume] in Se rum or PlasmaOrdered By: Gely Lin on 06-15-2024 Lactate [Moles/Vol] Lactate [Moles/volum e] in Serum or Plasma 0.5-2.2 [facility] Lactic Acidon 06-15-2024 Lactate [Moles/Vol] 1.6 mmol/L Normal 0.5-2.2 [facility] Comment on above: Result Comment: PERF ORMED BY: [place] [address] PATHOLOGIST ERECTING CRANE OPERATOR SHIVAM CORREA M.D. Performed By: #### P T #### [address] Leukocyte clumps [Presence] in Urine by AutomatedOrdered By: Gely Lin on 06-15-2024 Leukocyte clumps Auto Ql (U) Leukocyte clumps [Presence] in Urine by Automated High None Seen [facility] Leukocyte esterase [Presence ] in Urine by Test stripOrdered By: Gely Lin on 06-15-2024 Leukocyte esterase Test strip Ql (U) Leukocyte esterase [Presence] in Urine by Test strip High Negative [facility] Leukocytes [#/area] in Urine sediment by Automated countOrdered By: Gely Lin on 06-15-2024 WBC Auto (Urine sed) [#/Area] Leukocytes [#/area] in Urine sediment by Automated count High 0-4 [facility] Leukocytes [#/volume] correc amparo for nucleated erythrocytes in Blood by Automated counOrdered By: Gely Lin on 06-15-2024 WBC corrected for nucl RBC Auto (Bld) [#/Vol] Leukocytes [#/volume] corrected for nucleated erythrocytes in Blood by Automated coun 4.1-10.5 [facility] Lipaseon 06-15-2024 Lipase [Catalytic activity/Vol] 16.0 U/L Normal 11.0-82.0 [facility] Comment on above: Result Comment: PERF ORMED BY: [facility] [address] [place] [address] PATHOLOGIST ERECTING CRANE OPERATOR SHIVAM CORREA M.D. Performed By: #### C OVID 19 [facility] #### [address] Lipase [Enzymatic activity/v olume] in Serum or PlasmaOrdered By: Gely Lin on 06-15-2024 Lipase [Catalytic activity/Vol] Lipase [Enzymatic activity/volume] in Serum or Plasma 11.0-82.0 [facility] Lymphocytes Auto (Bld) [#/Vo l]Ordered By: Gely Lin on 06-15-2024 Lymphocytes (Bld) [#/Vol] Lymphocytes [#/volume] in Blood by Automated count 1.00-4.8 [facility] Lymphocytes/100 WBC Auto (Bl d)Ordered By: Gely Lin on 06-15-2024 Lymphocytes/100 WBC (Bld) Lymphocytes/100 leukocytes in Blood by Automated count . [facility] MCH Auto (RBC) [Entitic mass ]Ordered By: Gely Lin on 06-15-2024 MCH (RBC) [Entitic mass] MCH [Entitic mass] by Automated count 27.5-35.2 [facility] MCHC Auto (RBC) [Mass/Vol]Or dered By: Gely Lin on 06-15-2024 MCHC (RBC) [Mass/Vol] MCHC [Mass/volume] by Automated count 32.5-35.6 [facility] MCV Auto (RBC) [Entitic vol] Ordered By: Gely Lin on 06-15-2024 MCV (RBC) [Entitic vol] MCV [Entitic volume] by Automated count 83.5-101 [facility] Monocyte distribution width [Entitic volume] in Blood by AutomatedOrdered By: Gely Lin on 06-15-2024 Monocyte distribution width Auto (Bld) [Entitic vol] Monocyte distribution width [Entitic volume] in Blood by Automated High 0.00-20.00 [facility] Comment on above: The predictive value of MDW for identifying sepsis in patients with hematological abnormalities has not been established Monocytes Auto (Bld) [#/Vol] Ordered By: Gely Lin on 06-15-2024 Monocytes (Bld) [#/Vol] Automated blood monocyte count High 0.0-0.8 [facility] Monocytes/100 WBC Auto (Bld) Ordered By: Gely Lin on 06-15-2024 Monocytes/100 WBC (Bld) Automated monocyte % . [facility] Mucus [Presence] in Urine by AutomatedOrdered By: Gely Lin on 06-15-2024 Mucus Auto Ql (U) Mucus [Presence] in Urine by Automated Abnormal [facility] Neutrophils Auto (Bld) [#/Vo l]Ordered By: Gely Lin on 06-15-2024 Neutrophils (Bld) [#/Vol] Neutrophils [#/volume] in Blood by Automated count 1.8-7.7 [facility] Neutrophils/100 WBC Auto (Bl d)Ordered By: Gely Lin on 06-15-2024 Neutrophils/100 WBC (Bld) Automated neutrophil % . [facility] Nitrite Test strip Ql (U)Ord ered By: Gely Lin on 06-15-2024 Nitrite Ql (U) Nitrite [Presence] i n Urine by Test strip Negative [facility] No Panel InformationOrdered By: Gely Lin on 06-15-2024 Estimated GFR (CKD-EPI) > 60.0 mL/Min [facility] Creatinine Clearance (Chem 50.06 [facility] Nucleated erythrocytes [Pres ence] in Blood by Automated countOrdered By: Gely Lin on 06-15-2024 Nucleated RBC Auto Ql (Bld) Nucleated erythrocytes [Presence] in Blood by Automated count 0-0.5 [facility] Platelet adequacy [Presence] in Blood by Light microscopyOrdered By: Gely Lin on 06-15-2024 Platelets LM Ql (Bld) Platelet adequacy [Presence] in Blood by Light microscopy Normal [facility] Platelet mean volume Auto (B ld) [Entitic vol]Ordered By: Gely Lin on 06-15-2024 Platelet mean volume (Bld) [Entitic vol] Platelet mean volume [Entitic volume] in Blood by Automated count 6.6-10.1 [facility] Platelet morphology finding [Identifier] in BloodOrdered By: Gely Lin on 06-15-2024 Platelet morphology finding Nom (Bld) Platelet morphology finding [Identifier] in Blood Normal [facility] Platelets Auto (Bld) [#/Vol] Ordered By: Gely Lin on 06-15-2024 Platelets (Bld) [#/Vol] Platelets [#/volume] in Blood by Automated count Low 150-450 [facility] Polychromasia [Presence] in Blood by Light microscopyOrdered By: Gely Lin on 06-15-2024 Polychromasia LM Ql (Bld) Polychromasia [Presence] in Blood by Light microscopy [facility] Potassium [Moles/volume] in Serum or PlasmaOrdered By: Gely Lin on 06-15-2024 Potassium [Moles/Vol] Potassium [Moles/v olume] in Serum or Plasma 3.5-5.1 [facility] Protein Test strip (U) [Mass /Vol]Ordered By: Gely Lin on 06-15-2024 Protein (U) [Mass/Vol] Protein [Mass/vol ume] in Urine by Test strip High Negative [facility] Protein [Mass/volume] in Ser um or PlasmaOrdered By: Gely Lin on 06-15-2024 Protein [Mass/Vol] Protein [Mass/volume ] in Serum or Plasma 6.4-8.9 [facility] RBC Auto (Bld) [#/Vol]Ordere d By: Gely Lin on 06-15-2024 RBC (Bld) [#/Vol] Erythrocytes [#/volu me] in Blood by Automated count 3.90-5.60 [facility] Respiratory specimen influen za A virus, influenza B virus, respiratory syncytical virOrdered By: Gely Lin on 06-15-2024 SARS-CoV-2 (COVID-19) RNA SHARRI+probe Ql (Unsp spec) Respiratory specimen influenza A virus, influenza B virus, respiratory syncytical vir [facility] Scan and CBCon 06-15-2024 Anisocytosis Ql (Bld) Moderate Normal [facility] Comment on above: Performed By: #### C [address] #### [facility] [address] Basophils (Bld) [#/Vol] 0.0 10*3/uL Normal 0.0-0.2 [facility] Comment on above: Performed By: #### C [address] #### [facility] [address] [place] [address] [place] Basophils/100 WBC (Bld) 0.4 % Normal . [facility] Comment on above: Performed By: #### C [address] #### [place] [address] [place] Eosinophils (Bld) [#/Vol] 0.0 10*3/uL Normal 0.0-0.45 [facility] Comment on above: Performed By: #### C [address] #### [place] [address] [place] Eosinophils/100 WBC (Bld) 0.1 % Normal . [facility] Comment on above: Performed By: #### C [address] #### [address] Erythrocyte distribution width (RBC) [Ratio] 17.6 % High 12.0-14.8 [facility] Comment on above: Performed By: #### C [address] #### [address] Hematocrit (Bld) [Volume fraction] 36.9 % Low 38.8-50.0 [facility] Comment on above: Performed By: #### C [address] #### [place] [id number] [facility] Hemoglobin (Bld) [Mass/Vol] 12.3 g/dL Low 13.0-17.0 [facility] Comment on above: Performed By: #### C [address] #### [facility] [address] Hypochromasia Slight Normal [facility] Comment on above: Performed By: #### C [address] #### [facility] [address] Lymphocytes (Bld) [#/Vol] 1.1 10*3/uL Normal 1.00-4.8 [facility] Comment on above: Performed By: #### C [address] #### [address] Lymphocytes/100 WBC (Bld) 15.5 % Normal . [facility] Comment on above: Performed By: #### C [address] #### [address] MCH (RBC) [Entitic mass] 29.3 pg Normal 27.5-35.2 [facility] Comment on above: Performed By: #### C [address] #### [address] MCV (RBC) [Entitic vol] 87.9 fL Normal 83.5-101 [facility] Comment on above: Performed By: #### C [address] #### [address] Mean Corpuscular HGB Conc 33.3 g/dL Normal 32.5-35.6 [facility] Comment on above: Performed By: #### C [address] #### [address] Monocytes (Bld) [#/Vol] 1.2 10*3/uL High 0.0-0.8 [facility] Comment on above: Performed By: #### C [address] #### [address] Monocytes/100 WBC (Bld) 27.32 % High 0.00-20.00 [facility] Comment on above: Result Comment: The predictive value of MDW for identifying sepsis in patients with hematological abnormalities has not been established Performed By: #### C [address] #### [facility] [address] [place] [address] [place] Monocytes/100 WBC (Bld) 17.4 % Normal . [facility] Comment on above: Performed By: #### C [address] [facility] #### [address] Neutrophils (Bld) [#/Vol] 4.6 10*3/uL Normal 1.8-7.7 [facility] Comment on above: Performed By: #### C [address] #### [facility] [address] Neutrophils/100 WBC (Bld) 66.6 % Normal . [facility] Comment on above: Performed By: #### C [address] #### [address] NRBC% 0.1 /100{WBC} Normal 0-0.5 [facility] Comment on above: Performed By: #### C [address] #### [address] Platelet Estimate Decreased Normal Normal [facility] Comment on above: Performed By: #### C [address] [facility] #### [address] Platelet mean volume (Bld) [Entitic vol] 8.0 fL Normal 6.6-10.1 [facility] Comment on above: Performed By: #### C [address] [facility] #### [address] Platelet Morphology Normal Normal Normal [facility] Comment on above: Result Comment: PERF ORMED BY: [place] [address] PATHOLOGIST ERECTING CRANE OPERATOR SHIVAM CORREA M.D. Performed By: #### C [address] [facility] #### [place] [address] [place] Platelets (Bld) [#/Vol] 134 10*3/uL Low 150-450 [facility] Comment on above: Performed By: #### C [address] [facility] #### [facility] [address] Polychromasia Slight Normal [facility] Comment on above: Performed By: #### C [address] [facility] #### [facility] [address] RBC (Bld) [#/Vol] 4.20 10*6/uL Normal 3.90-5.60 [facility] Comment on above: Performed By: #### C [address] [facility] #### [facility] [address] WBC (Bld) [#/Vol] 6.9 10*3/uL Normal 4.1-10.5 [facility] Comment on above: Performed By: #### C [address] [facility] #### [address] Serum or plasma albumin/glob ulin mass ratioOrdered By: Gely Lin on 06-15-2024 Albumin/Globulin [Mass ratio] Serum or plasma albumin/globulin mass ratio [facility] Serum or plasma anion gap de terminationOrdered By: Gely Lin on 06-15-2024 Anion gap [Moles/Vol] Serum or plasma an ion gap determination 6.0-15.0 [facility] Sodium [Moles/volume] in Ser um or PlasmaOrdered By: Gely Lin on 06-15-2024 Sodium [Moles/Vol] Sodium [Moles/volume ] in Serum or Plasma Low 136-145 [facility] Specific gravity Test strip (U) [Rel density]Ordered By: Gely Lin on 06-15-2024 Specific gravity (U) [Rel density] Specific gravity of Urine by Test strip 1.001-1.[address] [facility] Urea nitrogen [Mass/volume] in Serum or PlasmaOrdered By: Gely Lin on 06-15-2024 Urea nitrogen [Mass/Vol] Urea nitrogen [Mass/volume] in Serum or Plasma 7-25 [facility] Urine Cultureon 06-15-2024 Bacteria identified Cx Nom (U) ORGANISM: Enterobacter cloacae complex (O:ENTCLOCPLX) [place] Count >100,000 Aerobic [place] Charge (NMIC56) SUSCEPTIBILITY ORGANISM: O:ENTCLOCPLX ANTIBIOTIC INTERPRETATION [place] Amikacin S <16 Aztreonam IB <4 Cefepime S <2 Ceftazidime IB <1 Ceftriaxone IB <1 Cefuroxime IB 8 Ciprofloxacin S <0.25 Ertapenem S <0.5 Gentamicin S <2 Levofloxacin S <0.5 Meropenem S <1 Meropenem/Vaborbactam S <2 Nitrofurantoin S <32 Piperacillin/Tazobactam IB <8 Tetracycline S <4 Tigecycline S <2 Tobramycin S <2 Trimethoprim/Sulfamethoxa zole S <0.5 S = SUSCEPTIBLE I = INTERMEDIATE R = RESISTANT BLANK = DATA NOT AVAILABLE, OR DRUG NOT ADVISABLE OR TESTED R* = RESISTANCE DUE TO EXTENDED SPECTRUM BETA-LACTAMASES ESBL = EXTENDED SPECTRUM BETA-LACTAMASE TFG = THYMIDINE-DEPENDENT STRAIN SHADI = BETA-LACTAMASE POSITIVE IB = INDUCIBLE BETA-LACTAMASE. APPEARS IN PLACE OF 'S' WITH SPECIES KNOWN TO POSSESS INDUCIBLE BETA-LACTAMASES. POTENTIALLY THEY MAY BECOME RESISTANT TO ALL B-LACTAM DRUGS. PERFORMED BY: [facility] [address] [place] [address] PATHOLOGIST ERECTING CRANE OPERATOR SHIVAM CORREA M.D. Normal [facility] Comment on above: Performed By: #### C OVID [address] [facility] #### [facility] [address] Urobilinogen Test strip (U) [Mass/Vol]Ordered By: Gely Lin on 06-15-2024 Urobilinogen (U) [Mass/Vol] Urobilinogen [Mass/volume] in Urine by Test strip Normal [facility] WBC Auto (Bld) [#/Vol]Ordere d By: Gely Lin on 06-15-2024 WBC (Bld) [#/Vol] Leukocytes [#/volume ] in Blood by Automated count 4.1-10.5 [facility] X-ray reportOrdered By: Abrahan Murray on 06-15-2024 Study report [facility] Main [address] [address] XRay Report Signed Patient: Fani Chua MR#: [id number] : 1935 Acct:[id number] Age/Sex: 89 / M ADM Date: 5 Loc: ER Room: Type: [facility] ER Attending Dr: Copies to: Gely Lin APRN~ Ordering Provider: Gely Lin APRN Date of Service: 06/15/24 XR/XR chest 2V*: Abdominal Pain Plain film chest 2 view HISTORY: Left flank pain. Painful urination. COMPARISON: 02/26/2024 FINDINGS: SUPPORT DEVICES: None POSTSURGICAL CHANGES: Aortic valve replacement HEART: Cardiomegaly PULMONARY NKECHI: Within normal limits MEDIASTINUM: Unremarkable LUNGS AND PLEURA: No acute lung process, pleural effusion or pneumothorax identified. BONY STRUCTURES: Thoracic spondylosis. ADDITIONAL FINDINGS None XR/XR chest 2V* IMPRESSION: No acute process. Impression dictated by: Trey Murray M.D.06/15/2024 2:41 PM Dictation Location: [place] [address] Transcribed By: [facility] 06/15/24 1441 Dictated By: Trey Murray DO 06/15/24 1440 Signed By: 06/15/[address] [facility] XR chest 2V*on 06-15-2024 XR chest 2V* [facility] Main [address] [address] XRay Report Signed Patient: Fani Chua MR#: [id number] : 1935 Acct:[id number] Age/Sex: 89 / M ADM Date: 06/15/24 Loc: ER Room: Type: [facility] ER Attending Dr: Copies to: Gely Lin APRN Ordering Provider: Gely Lin APRN Date of Service: 06/15/24 XR/XR chest 2V*: Abdominal Pain Plain film chest 2 view HISTORY: Left flank pain. Painful urination. COMPARISON: 02/26/2024 FINDINGS: SUPPORT DEVICES: None POSTSURGICAL CHANGES: Aortic valve replacement HEART: Cardiomegaly PULMONARY NKECHI: Within normal limits MEDIASTINUM: Unremarkable LUNGS AND PLEURA: No acute lung process, pleural effusion or pneumothorax identified. BONY STRUCTURES: Thoracic spondylosis. ADDITIONAL FINDINGS None XR/XR chest 2V* IMPRESSION: No acute process. Impression dictated by: Trey Murray M.D.06/15/2024 2:41 PM Dictation Location: [facility]--[facility] Transcribed By: [facility] 06/15/24 1441 Dictated By: Trey Murray DO 06/15/24 1440 Signed By: 06/15/24 1441 Normal [facility] pH Test strip (U)Ordered By: Gely Lin on 06-15-2024 pH (U) pH of Urine by Test strip 5.0-9.0 [facility] Coding Summaryon 05-19-2024 Coding Summary HTMLBase 64 HpskxieuTCj5wOj+PGhlYWQ+P F6EOARpH03ckDAsgT0qZ0COKE lOSywgQVBQTElOSyIgbmFtZT1 kaXNjZXJu IC8+WN7zCUCrYzersWCgg7O5w ZZ0L15zge7eKDfkbZO1MAHaPr Flkweqa3euzHj6ELtuFtnxGnS t EOMzlE48HRD6aN82Ik61tYAtn DSih5hwdHh2WzCqMJCcOHP0zG fpZGjei3NwDGUhS77axVAnq9O 6 LOZkoJptxTKiYzYkzNK0eP7tE Dygjedjw1svaalqSqq1do60zD Pec4U9qFT0W6RwhoG1SPCsnBE g UlfwjOJYtQ5mfccvg1ctnxtjQ cShAWOcXTh4BZq4VAUijKcmMg EsSW76XJP7SZHiyjSfR1LiWBW s hOnaRnZ2h4J2Nc9ZK8XIUnroP 1VNTUFSWTwvdGQ+ZD12sy90T9 TiTonvVcw3ECEjCOF1kJI1cI0 n QOXaESneb0R4lIP8N6JiliOza l7rl6gvPNHpMBplQ23viXGkd6 O3NTGaeUQ4LXUipPoxWiLavB5 3 Oyc+KMCbkOdct8ZxElntr0cyo 1fefIb1UfcfLXSvgjXqoFxnLC V2t8UjDh7vPRWryGR8bCP4tH1 i OeFwMxU8KMksF788HuFoiYZuD fjzC12mY7RylDX+AQHwElt3AA BbbAlyBV4jS9CvXMMwoxkafEB m rWobIX1fAEHssqtdITQxuU6vJ XCyS6m1MdHiVzA5BByrN3NnUY UdooysFb46xY9tVsTcDpF0MUz u H1YknqJ6BWFjtHQcJCkaSWI0R 90js2G8ONKrMPAyCZZ5hCF5wI 1hbGlnbjogbGVmdDsgdmVydGl j QGyvJUomG950RFAdhOouBnVfC GluZyBEYXRlOiAgMTIvMDUvMj AyNDwvdGQ+IWJzZGD2mGxhCNV n sYJoLVhaGy4fsXkorCwgLG6cI ICxpmlxIDSweS4oJTFehKGgyU hvRG2hSCTbrkgmv773QfIgUDJ 0 ZRAgyWFgD9EteN9jOaKsJEOnU XRfS9PitILgBPydK455HPozLt A5NECpyhCrQ5GjMWBrcGvqHgN 0 l4A7Pm7Un0EhvfwoG7WqwRUaK fNiXjqfBLc2L3UiAmnwzCX+PC 10ROLjQO87KXp7NRO2fNvmRBv i WAAaI4YnmI5oXaRdAGDuUUMsA yc+PHRhYmxlIHdpZHRoPScxMD HbJoMngUrwEW3rBm3hTKSwZDG v nEvplIKtUoWcj3uzRWObHSwrO H7hqVhnP5VgkSU7SHOal9p8Ii 34T88fZ1KicDM+WFWslIA7bYP 0 jU0zLvYtRmA6MWzcC244TrPnm NPaRucaw2gfe6pdbXf0ZbH1BP PbfiFtuPvwSVP3f3CmDp66E27 s IHdpZHRoPSIxNSUiIHZhbGlnb n9lfG2zZm9+KPEssUQ6vVB8zU 4aYoFgBpK6SMowD219YnLlcVE v Nhdce9ltb5zqaLo8YdXhSJAum xDezMfnOUB4h8IuNg23Z4NatL lvs2EoPhi2gb75uKWnk6K9mCB 9 G7NhGLSkkigcxEYzgOscRT5oF NFypduxUIKwuP5eQEHrF1w6Fx BpUsM5LKnnV1AxryN2URRpsZC g AZExeBOYaL0smijcz7yzuislR gFfJNCjOQy7QGw4SNXqwIypHp JrZDV2RkD2PEY6gIZeeA0wyQt n nycaeI7bWvv+ILB7fMCwyGONZ O1dNbuygWV+ARObLVB5jKpiSS qjQDKtzW1zFDCwK8x8XgOiEsY 1 FKqrV8DyhvR8IYJekNZoLQXcf LUDqE5vynnwd5nycykjXkWdLF MiNCm6LRa3SBIqyZbmQzVlECU 0 XkX3APN0fHYyaX9mpFcfufnuy G9wOyc+TwzgsAnmLSF4WNf3I2 ByDav8GJCpoRqcMP6yiWAfBBd u Fn8esIdmkMzyWB1yBPHvocvsi 696LkWqa2pjYMPeqHFtQRqfSW O9I12hw0O3ILLyUEWuVXQ7hDB 4 bU7mbNnwicnlfNEscYgjkfJzv GzjGIldCBvrY438RDQgbQoyTd QiCYq0S2NoYcn0KKEcuGylLT7 n fAMhIPtdGl8qbMaelEazFZ1uQ IAcofbvd936ShUsc0ctMOGupI JjGXvuYFZ9Y45al8U9HHOkGRQ w UMB9mMH7mS0cqBgbprzavQXcc JodwvZgrQzpNPdsNIyaG194WG UryUafVlPqdVh3Q3AoJdf9JLD z kCnbYV3pyMMrCXdyCe6owUais SczTC8yWRVpnelzh959PdDzl6 onBYBwzKRrJGhwFKZ0Y92lm9Q 6 IFUfOJVvDXP1tQR7yV7jgIhda jogbGVmdDsgdmVydGljYWwtYW yvM814LXPytVkfJwOzqNnieeG g RMovDFk3X0NkAuklnFR+PC90Y PKyOD14bBXpqTUna1tigWo8Vz OeAGCgXDO3aJmhIHcan3NlGEH t Q17chGNaa9I2GYWamPgkaAMvA gTttLS8tH6rYKmvephhg3azug mgQbwvs6kukg21jD44M18pWFh p UOSuYLTmTWWhELIacUnvsu2zy G9wIi8+AAAubAX0rYN6kQ9mCJ ZmSoZ0QTwzT885SfXhkIRkKbc j t9hin4atmOe5KjX5THGsbxRfy OnvGAU3v7XqWs55F14iYNxePB UbQXQiVCAuPNMnlJoxae9hzT0 w Ii8+UOGacUZ5nJW5xS0bHwRxB fS4FKprN558TxBtlGVyQyfbI3 5zK3BzeIZ+MICuVqh4ZIPkyMg s ME0ikGXdZWnbPt5sLWT1HqYlA uSkURsaY0CpCUJqrifnmuawuU E7IRPgZXUdrM96Zf0gzGstPJF w aEZDuL2rwegnu3agsvweDgQtL OInNEe8BEp7BXJqkXxuEvLwVL X8EwU9ABN5nGMpvX7xnFyxaxr g hG6nA7CqBVFgzrcsGw92rZ4vY hWzRqJ1GOwcZcf+RklTSCwgSk FNRVMgVzwvdGQ+RWQpTZD0lRl l GYmgNJPlxD1hKREtD4n1JgZfG pW9YXkjC3PjXGSrivjdRw64yW 8vNyKhLeB2UCeyP4JcxoM3XAX w mGAjCKbvLOL0M58rw7F3HZXkO SGaGSO2fRB6vS8ibYiwbzqzdN XjuVilkiMllTjkJDujWJdzX96 6 DWWchDhsWzVlZfZ0LfU0LyI4U 6IrJju1HENsdKkmAP5lpXJqBS mbTj2bcYpozFmwWC5rZCDjtnj w UUMhtS5rWAJzdWOmjBlcWP6lC GNlyigyt856WsBqNQL4ZTVqhC IxF4WflP0wOiErVAExSPGiH2K l nMAqGXumV369FJzlTlC4RHUbf kJgY0DbXQOkyWioCyD6i8A5Gj 44NyBZZWFyczwvdGQ+PHRkIHN 0 pTkpJIgzHHUkpS9eFYHkG5y7P rFcGgM4WIkbR0WeGWZugdzrDb 28pY4yLrLcUlR8AShnT7NoctR 6 BJZakKUsCKcyNEF3F82kx0N7Q DEbBINbNMD1bYU3wC1flXzxxt ogbGVmdDsgdmVydGljYWwtYWx p V223YTDprGalCa1NSXM1X9WkN fx2GKSpmYzwOD0gzDLuCNqqDf 2dcXijmAonMQ2sTWHbliucAWF k bP4zODDlzZEwmPgaJL9bDDUyt djwk348XfOoSDC2VOJgyXHjF4 IivW1vKkEyOTTcLWEzZ0WouRB t WPjqF453KAqxCtB8YRNkowElN 6SsTOYkgWfoImQ4g5K8Ca2BUV wvdGQ+WA09zs76N0TuSbzuHdz 0 JEYqXYZ6hMR9jH5yQZHdXVceu 3X2oMD9T9LfklXyra6ng7ifUH KvGIfqU52vlZSfq9Z6MAGkeMA 5 URRygPuuPmOdfQ83Rpa+PGNvb Zvok8VpCbnld0syp8qsdCr3Vv JwUVYzmkHlsPxvKBI0h1WfYg1 8 S46uIVqnQAKtLYYjOZHbKIQgp Ktebk3rwB9dDe6+FFMbcKU1wU Y6xK3xJoDyQlI0DKkoS629PlQ v aHXlFmubj5cus6rtjSn8FzWyB LUmpnRxbHvgDFD5s7YkGf31H5 HpjDewj6IvLie3jg06fNWdj2W 5 bLM9Z9AsECHvvrzgpEZvtBybO T6mIGNdzqaeEGRbbG8tPWUjS3 r3PoVmArQ5VSjnC1ZysjA6SBC v uSXuZWQuwIUXzZ3sipzbq2spn qhvJmUuAKWyNSw3NIt4DVIrfV bjDtViRPI1XiX5EYV8yGSpdX7 h qFqqiezxyI3pLoh+DSo5k7olm RBjLO6zhLE4SG08WF98mSWjr7 E4uID0Z9JtLSXtwijxkckgfRY 6 PORsIYOnbV43Sq1cyJolYj7nB XSjOSG5JSEjpOAsB8YnxX3kWn IyGPYkWLQfG6VitCPfXZqfD10 6 ABdxWtJ9FXVgcwGyF9IpSAIki NdoKmU5n0Z7Zu5WKW76CC38NF 84vVYum4E5zGO6O8KcDJVrohy t pczqlQA4SHEdNFEfaY02Lw2yb SaaQs2kUQDmUUM9ETDdrDFiM8 YrzU1vMvVgYQJhRFSyO2CivBM t MQsaU587EYbmGyZ4UETauzYtP 3RiXRFtbCruWnD3x2K6Rn8IZw 08OI28AK88lJBjh7S1yGI7P2Q h DOOnrykmddaokKO2MJLrFNIsh O98Bj2tsUvlPg8vPSHbKPH1SG GmjWItV6JogY9sUxIgTZElLQG w E3EcyMYfTZtxQ834XXezTuH7R IIhsiAkR4FgQMUwaDrdJbK8j9 F7Sc0FIHmsxjv1N9IfUazktTR + WX52VNWcXH54mMRstXCuv9gaq Bd2BlSyKCNtNWX0rMdgSHeiw9 ZtQAPlQ87kmRJhq8S2YUAirLi h cHN (more content not included)... [facility] Coding Summaryon 05-09-2024 Coding Summary HTMLBase 64 BcupueoeHSc6iAp+PGhlYWQ+P M1TTGZpE60acNGreI1xX9BZBF lOSywgQVBQTElOSyIgbmFtZT1 kaXNjZXJu IC8+FA6xCELbDceduUEdy8L2k JB2T33nzk9zNJimxFA0MSTiWt Tapkoqg5aomIr4KLryIiprJuQ t OFMofR92MHI9gM98Co35lDWcb WXff6cshIo4QaXwCAIgUFY6eU ltZHkaj4UvVJNyM59xtWIto6M 6 STJfpSdhlKCzKmXmkBM8yX4dS Uibcvbba9niqkjnFiw1ln30sH Ggf4D1gID5W3HemwA2JEOnnOQ g YnobsJTKoX8rtsflr2fiviajE uAtXXFjQPw5SVo1UWCndYyaNp MtIA89QGS9PFPyzmRjP5ZdJUC s aVeyHkW6x0J3Nd4LY7SNGezwN 1VNTUFSWTwvdGQ+SX83ri05Z4 EiQadjBzs0HJHmXKO5vDR1wY4 n MULfMGuim0S6tZU1E5XiozZpd q6nz8usGVCdOTfvR86ejFRyo3 B5XMZopED8EEIdzHqgTcYteI7 3 Oyc+WVXkrQsna6PaAvvbn3zya 5aulVc3AjxbXHEpqxZvpDtvGY P3k5GoJo9wXNJgnOJ1rJA1oV5 i IzEhBaV4YNncD072BeZlfQLbQ fmyE19jG4IpmVD+EUEmYum1WN GjtNwkDY6rI6EhYFVapvtadEC m kAcyWY5yJCTvbpxyFRMgdF1lT TWrF9t2QrZaJdW7LIucO1CjLB SurexkFj82zH5pIfCmXhY9WPk u Z9IyfxA6XRMmrKYvZCobETQ2P 64hz9L8MCEqBAWoQAP9wDA9iD 1hbGlnbjogbGVmdDsgdmVydGl j HWpiSLusB329XICfhKvaUrRmW GluZyBEYXRlOiAgMTEvMjUvMj AyNDwvdGQ+YIWePXP9uOyoRZI n jXQeZWyqYn4ceDfcpQdgIO1yX AErzragHTQsfL4rHNGklZBeeK drAC8aQZMzuilsp264GhGvMBU 0 XAKcyHKlT9AtpR5iDjWtMUJqC UUaW5DhvXUqWWquY848HUseVm F3VFMvhmLoE2IbRXNisRfoGlQ 0 s3X0Nz5Cx0NpzjzcM5AjfKVbS sCwPkheBXm9R3ZfXzzdvXD+PC 74LQMjGY15NQe8EXU6bYobMTk i CMWhC8BgnS1xGfHvPMOmFGDvN yc+PHRhYmxlIHdpZHRoPScxMD HuSlAlnDjyZI3uEv0iLHHkSUL v kLtwhPFbTpKbn1lkBNEjJTtoJ Q4qoGlhJ0HulFO7UDSmt5n2Af 78O69sE6IgfXF+RNHucSH5iYV 0 vO0qRwHdZnI9FKeqQ894EgWdr HThCoyei8esv1tenYs7SnI7JW BtkfYudZkwJKH1o5FdJh79W11 s IHdpZHRoPSIxNSUiIHZhbGlnb v2quP4kEh0+NPHiqYX5aNO4wD 0iIpEqEvN8QOqkW721VeDreWZ v Itlrr4agi4vteKu2KaSuAPSup cQtuAofNNS8c9VpDu17Q3GxxL aiy5CjMfs9nr56nXCba2N8jPM 9 I7PlRYLqakhutCMcvYztLA7eF CBdsyudPRRxpG5oIMTxR2s8Tg NgXjI2UJnaV3CjmzP3EMNwrFT g YRNhgRYTzR2lozyem8isffdoO kXnSVKbYTh7QRz6NNAgvJrdMe ZhSHR4WwB3BNH4gVAplE5pqZo n ovxysS2kDsa+OED4uQRulKGTH P9bYqsckTX+GZUaNZA6zHtlEU veGYWjwT8qLLOwJ5s2NyWgMwS 1 WZoyM8FenbJ0GHShhKGvMXUvj FKGkD5xofgwe7vyvkfbBsAeVO ByMDt4MYl7VRKioSraGoJeVQT 0 NgY4SDY4mUHydF1ojIfenrqbw G9wOyc+NusecAvdLDP9JKv4N5 NfCmr7YFPhcSvuJP2fzTKwZFy u Bl4hjXhwvSxgJB6sPCObuhwcy 480VaAit0dqLVVuwOTsZFwkJJ L0O97fc7R5OXVzVRMqHDM5fDQ 4 rO7tlDipocnfkPXzdYdodtSct WndUUsvRLusH106HOUwcUpfEf NcIJn3I1EaVbo4EZHtiOeoAE7 n iNQnOEtzNu7rfIwsdOsfTG8gI PZyqcbrs533GaYls7dsALZgjG DjYAxfWZS3A31uc2I4UPZuIEW w KYB5xGI6dE6uzCmqacwelNOgf LjvutHlrZljCOdpPLszB720MG TltIwsGqLjsLq7Q1OlTdk1LVH z wHgfDU6nwONwPImrXe5sdCfdr KqyJD1uLYIyndrul989EaQxg8 ryPOFkpVVzGQsgMEE9O91nq9R 6 NFGlSCJiAAG4lMW4cS1orDvpl jogbGVmdDsgdmVydGljYWwtYW hgH422ELKccUmvGfLdgLwkeqD g FVjbEFw9I6XrXmixfOM+PC90Y ZRiJF73xOEtqKFyk0ewoIj2Yz LqBUWzFIO9nWydRSson8SnVNV t W30ubNLbu6Y0RKXnqOsfjOLmE iXnmQE5dM3fCNtyakpns4twgl kcRomte3bmux85tT57Q14cLXj p AYTuJCTgEEJsUUIaaSfgqh1mk G9wIi8+PGXvuEL4iBW8xZ3lXZ IuYsL0QEbhM902BiQdmTRaGpj j c2afe0ptbDl1PhS9SSFqmwBzg NpoOWG3r5FuHk58X26oVKvjDB BbOONyGDIpWTOnfYfbcc4xaX5 w Ii8+NZPwyDT8oFY1rF2jLmPmI rB2VKjcP003EqKqbOVuRcbmM3 9nD6EfqAP+APOxWjj4NKKdcDs s TV5uvCIaLEtgLo9xYDD1DrRxH nYePZkuH8EwTNLzwbcgohzvkE P5ZWUjXIJqoH31Il2emCrjZEI w xDSNaW4ndzpnd0rmhzsiOeIhK ZSsHNu3GJk7RCRgwPleHyKfBZ H9EsG0ODL4gMQhxM0tgYjedoi g tX3wT3SaBLKgjhwvUx43tO1cU hMjQsY2AAtkDpa+RklTSCwgSk FNRVMgVzwvdGQ+ENNbBWY2xUo l VUqiEVCtnU0nGGDkU2m9QbXcC hG9XTayZ1JqRFHffzwjBn48uE 3zGzQqGwO6ECmjS4SnfeW7NNH w yZNvBUvrLJE2T79nr0E0WDFaX XRfIEI9eHO6xE9trTantjxskI PytEotuhZpuJacXVlkVGgtI51 6 LFSopZqjAoAuWxT1JwK2ErR2O 7XzJiy3DOUanCorHF8dpQYpYD fhZb0teStsyOcwXI8eNUGyolx w XZMzgC2rTGWhnYNzcIwyRI7hD SEernkqs129MfVsMUT5SFSqfD EgB4RkrB5wEsOlLENkSFXgM6Z l yJJlZFpcD730XXriMaF6SCYiu xViP3AaYJZeyAtlMgM9p9B6Wn 44NyBZZWFyczwvdGQ+PHRkIHN 0 mJynJYwpZDAlkE4wZJQlK7n8S mZhDmI2JOzyA0KnHEFnrpgoRl 02iO5dDwAmRgG5UHrvV8ClhaJ 6 ZGFfsHEkUPhfAWQ0R87xk3S9T UInAPZoUIS0tGY7xG2rgWqyyy ogbGVmdDsgdmVydGljYWwtYWx p O981PUMmyWjqTa6TUYH5I4VmQ jt5SFFrxTlnII6lrXXvUIwsHh 9hgTjgwEcjVR2wNBNqhqqkVDX k uQ1tCNYsrIXwjSqoCZ0tEWFsf qtdv563CtKaKJH5OPTclLMdN5 ZmrV1qLtZaBCQmDSRvX4ZhtAI t AJskQ584FXtgCbF0UMBdcuXnP 4EhWRWyeLhsKxP9n0U4Ag6SDP wvdGQ+IV60qy76D1PxPtsySem 0 YXOoHHX6yTP5oM1vYPAgXWtgc 3V9dON2T1MoxpXszo8ub2llTP LmDPejI51xwTEip6R0NOPmcYI 5 JDEvfOcvOqDboM40Lmu+PGNvb Drpb3AqYqkbl6zyj7qokVt2Fk EnKHJkgpMdkVjpHVC9s1HeTl8 8 E98zDXxxOQJhCLQsPHHpHWAly Pwwgf1ukR4rFf8+ZSHudRU1pR R4fZ5mOsXrVrS7AMeiB307GzH v iTYbRigms5wws1ohlDq6IePgY WBllcLucPxeCSD7r0KhXw94Z0 IbtHllp5GlDlf9rc96qJXdm2J 5 fBM6T3JqIKXcygehyDHvwNtuM A8dESUmulffVYWpqF2aVUVbU5 h6CcFvZhU1VIiyP5HlrpA0TJP v pQUiXMWdgOIQnF4vkfrcf9hjv synFlMiRCZxDMn7XWk4NBQpbB rbFdBpUXI4YuL2OXO5qJGxxW3 h yYeuivhljJ0zRle+CNa6a5baj NDiRH4qjAC5AU14PB18yAEdh0 H5sIH2V4OxVKLprqwmxffcpLK 6 PWDbKQNbbZ47Tr3xaTrwPy9pQ NCoXKY0TVFtwMPpS8YnfD6rGt HuYAPbBJPpE2VhyXKkQMrmE54 6 JBxfYtS5DOBfutCwO4RsHHHxu YszZxU1i9A3Pc7HZG85MN05UB 52nICvp1I8jFW5B3KjBOSafnd t xebpuYP2BMDcCFOnlF30Rb8cg LckAy7nFVCfVXO6OFJzyNNhS4 PqcE4bDdQfXJIeBGZyV2AzmMA t NZkjQ166ZNssAuG1VRYdvuNwM 9QeULSbhFonVzN8t9S6Tr8CWb 88WO99WV89vDYfa4G0nLK2U6J h SXJzyetvbjfmtMA3XKPtXGDwk G55Hg8otIfkRw1pMETaVZH9PK VvqTVqW5RkfN0gIhVoSHYxCGZ w M6CpoMSdLQclU160GYkcAdD4U DEshmKrL4HpWGQwzWhxCrG7u9 A7Ds9RWFjmwpp2M9ZiDoqlzMH + XB30CMVtVK75uVXrzMKqw8eoi Ta2HuZmXRUpPLM6rNcmHKcav9 GkXELxM90bgVLao7H1XSLriTt h cHN (more content not included)... Normal [facility] Basic Metabolic Panelon 11-2 Anion gap [Moles/Vol] 7.5 mmol/L Normal 6.0-15.0 [facility] Comment on above: Performed By: #### B MP ####[address] [id number] [facility] Calcium [Mass/Vol] 9.2 mg/dL Normal 8.6-10.3 The [facility] Comment on above: Result Comment: PERF ORMED BY: [facility] [address] [place] [address] PATHOLOGIST ERECTING CRANE OPERATOR SHIVAM CORREA M.D. Performed By: #### B MP ####[place] [id number] [facility] Chloride [Moles/Vol] 105 mmol/L Normal 98-107 [facility] Comment on above: Performed By: #### B MP ####[place] [id number] [facility] CO2 [Moles/Vol] 27.7 mmol/L Normal 21.0-31.0 The [facility] Comment on above: Performed By: #### B MP ####[place] [id number] [facility] Creatinine [Mass/Vol] 0.85 mg/dL Normal 0.70-1.30 [facility] Comment on above: Performed By: #### B MP ####[place] [id number] [facility] GFR/1.73 sq M.predicted MDRD (S/P/Bld) [Vol rate/Area] mL/min/{1.73_m2} Normal [facility] Comment on above: Performed By: #### B MP ####[place] [id number] [facility] Glucose [Mass/Vol] 133 mg/dL High 70-100 The [facility] Comment on above: Result Comment: [place] Glucose Reference Range is dependent on time and content of last meal. Glucose of more than 200 mg/dL in a nonstressed, ambulatory subject supports the diagnosis of Diabetes Mellitus. ADA recommended reference range Performed By: #### B MP ####[place] [id number] [place] Potassium [Moles/Vol] 4.2 mmol/L Normal 3.5-5.1 [facility] Comment on above: Performed By: #### B MP ####[place] [id number] Sodium [Moles/Vol] 136 mmol/L Normal 136-145 The [facility] Comment on above: Performed By: #### B MP ####[place] [id number] [place] [id number] [facility] Urea nitrogen [Mass/Vol] 23 mg/dL Normal 7-25 [facility] Comment on above: Performed By: #### B MP ####[place] [id number] Calcium [Mass/volume] in Ser um or PlasmaOrdered By: Bonita Kingsley on 05-06-2024 Calcium [Mass/Vol] Calcium [Mass/volume ] in Serum or Plasma 8.6-10.3 [facility] Carbon dioxide, total [Moles /volume] in Serum or PlasmaOrdered By: Bonita Kingsley on 05-06-2024 CO2 [Moles/Vol] Carbon dioxide, tota l [Moles/volume] in Serum or Plasma 21.0-31.0 [facility] Chloride [Moles/volume] in S aime or PlasmaOrdered By: Bonita Kingsley on 05-06-2024 Chloride [Moles/Vol] Chloride [Moles/vol ume] in Serum or Plasma 98-107 [facility] Creatinine [Mass/volume] in Serum or PlasmaOrdered By: Bonita Kingsley on 05-06-2024 Creatinine [Mass/Vol] Creatinine [Mass/v olume] in Serum or Plasma 0.70-1.30 [facility] Glucose [Mass/volume] in Ser um or PlasmaOrdered By: Bonita Kingsley on 05-06-2024 Glucose [Mass/Vol] Glucose [Mass/volume ] in Serum or Plasma High 70-100 [facility] Comment on above: ADA recommended refe rence rangeRandom Glucose Reference Range is dependent on time and content of last meal. Glucose of more than 200 mg/dL in a nonstressed, ambulatory subject supports the diagnosis of Diabetes Mellitus. No Panel InformationOrdered By: Bonita Kingsley on 05-06-2024 Estimated GFR (CKD-EPI) > 60.0 mL/Min [facility] Creatinine Clearance (Chem N/A [facility] Potassium [Moles/volume] in Serum or PlasmaOrdered By: Bonita Kingsley on 05-06-2024 Potassium [Moles/Vol] Potassium [Moles/v olume] in Serum or Plasma 3.5-5.1 [facility] Serum or plasma anion gap de terminationOrdered By: Mesayessica Kingsley on 05-06-2024 Anion gap [Moles/Vol] Serum or plasma an ion gap determination 6.0-15.0 [facility] Sodium [Moles/volume] in Ser um or PlasmaOrdered By: Bonita Kingsley on 05-06-2024 Sodium [Moles/Vol] Sodium [Moles/volume ] in Serum or Plasma 136-145 [facility] Urea nitrogen [Mass/volume] in Serum or PlasmaOrdered By: Bonita Kingsley on 05-06-2024 Urea nitrogen [Mass/Vol] Urea nitrogen [Mass/volume] in Serum or Plasma 7-25 [facility] Coding Summaryon 05-04-2024 Coding Summary HTMLBase 64 RqvebzhkBFw9xHx+PGhlYWQ+P T7VJKIuW39maRJlaZ1xU5KANT lOSywgQVBQTElOSyIgbmFtZT1 kaXNjZXJu IC8+LN6uATQjNivojBHil1H1b XR1H65tll1sJZodoAF9PVIdOw Mfecuax4cqhLj8JQemZajaAeB t LRSfrB55YAR4oY04Fe30mTLdu NBnk0wkdSb9YgKjOLJcAGI7wP kwAOfkg3XtPPZzE18pxDYwb0M 6 GLYyrYaljKIhKjPusRD5oL2pK Kngpokzp4tvxjecZme5ym58vR Vpd9J8sCW6G4InaiV6TBIqrXW g AfhsrTSPvB1sjzlvo5anyppeA hOyEPKvTHd1GPj6AHUteNxwUt BlNY39IRH1JIUwtyEaT7GxBNC s xCfuYoV7c9H2Ea6KA1XGMftmS 1VNTUFSWTwvdGQ+SP76nx97G4 MpIhmmZym2CYRiLLW2eEM9mK1 n FTNrVNdja4F6gQV7O8VpysFvz h8iq9mbFMHqCSfkQ35lpYRze3 V5FTJedYI0MISqbBezOhSefG5 3 Oyc+AXZxtEzjv5NzIkomz4kvl 4lkeFn5AmwmLMYaclRjnYomTG Y4r8XxJa6pULRevAY8sDT3oT0 i EuLkFpA1KHhcM611UgGcxDDaK mhbN27fL8PyzRE+MFRxEfw5FA VhqRtyYB9rP5QhWCFwgxhqqOA m fPezRN9wXZQsllxpDUPsrX8eP NLmR2c4QyFbOdU8DYvzV7UsWR UsrztaJj56cA0dPcCvOhP4ODu u A3JccuR9NLXtiZEeSTidJXQ2Z 27pz1P9KEPrZKFzIUN4tQY3rV 1hbGlnbjogbGVmdDsgdmVydGl j JXuzBIguS710JXMgrJssIiVfP GluZyBEYXRlOiAgMTEvMjAvMj AyNDwvdGQ+IZWfTZM1oHagJXA n wCIjMWsiWk2ckUqxbCkdKH9eI ZKpvlbcSEXbzT2dZPBacTWqmE glZI6tRMSsoxdhf070IjRpHCL 0 PURvtGJcC5RucO9mXtIhASNuK JXoL2VamKNdSHziS061FLfuAj Z0IEPcerNmN5HwPCQgaFurBiK 0 b8K8Wl3Ua7KyawrqH8WaeXZaE xPeOzpvODo8V4NoLpeafCC+PC 83GUBhLH64IXy2XXN1iGwrGFa i OZTwH3JbwS8xIgNkVCQhGWSdR yc+PHRhYmxlIHdpZHRoPScxMD GsYmAecQjkDC8uCs8hOCRoBOU v wEhsnEImCfIww1byOMNoEHyhF W6pfQxyO5JyuPA3NGBno6m8Se 51S70uG2UpmSZ+VREbuDF3pVS 0 pF8wNiVaObG9IDjpW070KkVoy VCbPnzlj1rwl0fdeNt2PuY9QN TebdUqrHagJLX9b8YhTn66V97 s IHdpZHRoPSIxNSUiIHZhbGlnb a0iiA7uUy1+VHMqqTN1qXL9qD 1xGsIoBpF2GDknY633FhFkcET v Ezdri5fpo0cuxXg7YnVyAPKqn tVvvQcvAGU5o4EqMi26P7AjrU lcq8ZwAfi2es21eORfi1T8wWA 9 O9IjXXAgawstrNZwwHepIB1iY HWazoajQWCxaP4aOWVmX0v5Qe KsTpE4QCkeV9GuvcR6YLBobRO g WFTqiYVFmX7tuzldf7wlttcjQ tEbMPXsSCp4WRy9UIUkmLxaTv PtMMU2RtY7PBK2uPWmwR6hgNg n jfecqD6aEww+DGU8fRZvtOZQR F6aVdrezFC+RNDzLTR5kDsaJE fuANVemR4sAGQhA1l9UeLdIyH 1 GAieA0YryiO8GRCqhTCgWMQjg VMMdD0jwmtrr6xugecyOxShCU WkCKq2UHn7SJLhqTimZoRmRWB 0 JqI4QII6bKFguU2vvHdrgmxxh G9wOyc+DjcknUyoFCU3EDw8Y1 VuHkk4FFKgzXbuLB6eaGKeJLh u Nk7lwBosePovUG5kPTXtqkjxn 838TmPim6nbFMJagAQwLUwrRH U0D65bb3K1AIXaZLGyBKN5cDH 4 xN7ldNexahsmmWPmwNomkmGvr IknYJnzHTgnQ556TZXhuFwzFl FpMSu5G6WpCtd1LUApbXioLU1 n aHUlNCwyJe6btNveyUsyOD4bK BQquacee000IcUcu9afQFUysP IaVTjtIMO4D54be1L3VATzZST w EDH9uAX2sU6zcMqcheudrXSkh IyvlhKvoNbdBNgyCDldN939AL RxlWzcHuJzbJb8E4GqSbr6RTI z vRwwQJ2jmRAgDRrbLl2crMgnd KcvQU8rJXQquwhyc212JrEoj4 yzCDRkrQEcFSikWVF5M52gn9O 6 TSWkYCRxUPD6tJL8nA0ilHgci jogbGVmdDsgdmVydGljYWwtYW zmD410ITFxnNkdMqZztJajctD g ZUzlZMd7C7HcHndmuDL+PC90Y BRoQY85qWTucITgk4adcOq7Iw CgJZPgAWG8mCacOWcdc4HkDGN t G99jvAWkw4Q9ZQLacFjufQSkC iTqrVM2qW6nOVnushixm2ghak cnVknmu6okji82uS11B02pEXa p NHPbOHIkPBNaBNDqeKlrqq9kn G9wIi8+OTBinSK9uVI6jW3lIT UtMsL1BSzsY503MnEirNTxUuh j i6xtg7ngfGk1BkS0PYIstoYin XsnLUL8r7JnBb50M34fKTfcHI AbJCOlCITxSYHbsTxbql0jfH8 w Ii8+ANNteUV1zXZ8eB7wYfDxE sH0BTjvV618DmFlfKTfKvacU8 7kU9UhoYB+FDWxThu3LDZonXg s SW3ffJCjSSdbRz6lLHQ3TpSqB nDlLUbpE3UzVWNuixshrzznqL R5LUQbDJHetR87Bs1boJweGTA w nVIPjN2vacwdz4dntwwsSrLbK ZQhPMn0YKg7ABRglFxcTyEsKO X7ZrS2OFC8kHEpiQ1glNczqux g rL7fF8XuVQPomyzeEb65bP8gS lOjGoB1DHsvUef+RklTSCwgSk FNRVMgVzwvdGQ+XHTlDVR1mMv l KHjgPSFvzY2jXQBbH9f1NfYkG tY3HTnmY0JiQKDypilxOg42fN 0pHzZzCdU6PUtrK1NxrtZ7FLJ w yFQxAAcvRIR9F35sx6X2FGCrC KZvVMI4fAY3xU9fxItbsiomxX YgnFxvqiFghMtgKZyjDSjfH41 6 HSJhlJgqXuYiYhC8AvV1CrV9G 1HgPri3MHIddIlrFD6dfZNvBB xjGc2zrSbqaHsuFF6hCYMkdcp w RYCwzB6pJBOlhIYxzFonGS6qK GXcbayue496GyNrKOB2LNKndI IsX8KnxW8mWhZnPVSyEGPsM9R l gZLxMWlnG564OBifHdN1TGTvl mVdM6BrMWRjiKnxHxO0j8U8It 44NyBZZWFyczwvdGQ+PHRkIHN 0 gTzlABjqRAMhaS8kDPUlK5g8X pQnUwW4SLaiY9XkGSHrsrdaJl 35dR2yYrJzMbA5RXhrJ6SbevT 6 JPDsgEZbLGseBOI2W04bn2T7K BIaVKQdAVZ4oUY9hN5jqDfdeh ogbGVmdDsgdmVydGljYWwtYWx p C141XSMbnOkvHw7WVGH1Z5DaV cv1IJWwqDmxGI7xpRNvEQpxTk 9ehEsfyVnnPC7gZWJejwgcXYO k hR8jWXLqqKBxyPniQH7nEJSys hrya401LwJpDRW8REZdiCVyA4 WnpP3eWmZySUEdBZOkW6PoiBE t HDqyP399EJdwTnS5HZPxgkNlT 2QcEZNyhLpiGwP3a7K2Un1FJU wvdGQ+DC60qj98S7UzZkccPyf 0 DYCbCPW4qKT1bB9tFFEyTKmny 1T7zOO6B4OlicIxut1ru7yvZB FhCOqjQ16veNArp3R9GELvzZO 5 OXYsvGohGqXkrR86Sdd+PGNvb Anbt3FlZotva2tly1hgrEo4Gy TiOXEponOgxPzoCWA6c6DvDc9 8 A14pHDcaIITvWSSwZXWlQSNlh Czqop0zgZ4gWn1+SCTzjTU7zL Y0lT7vMwUlJkW6UElrS486EoT v yZQxDczxb6yel2zvwEp9RgNgE RCckcTvvFcwZJS5u8LbBb88W3 TbkAsfi7GuOjn4mi86yRPay2D 5 lLW6W0VjFOJnwlprxSPkrPkyJ Y0pMBZmwjxhJAQxuT3zVUCnT9 y9XmGeVwR4OGreQ9DffxY1YGN v dJGjMQCklGORhE1lioiam9mhf fipWhTiNNOgXKc6XAj0EKXsnA rvCqYaJDY6RwG1YOG2tTNgiZ1 h bSlpfzvjoF1qVnf+XEq9y4gqp KBdRZ0phTI8MK24LB31nGJgd3 K1oSN0D0TyFTFeudrscmtkqJR 6 CBVuKHSmxC42Pa9hmTpfFq9wM GEcHOO0EZScbYCmB8XunJ3zSg ZvVSFkRAKiJ3GpxYTdYWzrC84 6 IGcrWsX2JVVhrzWjY5RaWDVyn XypVpJ3l1A8Wa9XGY90LP34FG 13rEPgq5Y3gZW0T0CmQVTufau t xmwtsRN3YYNqYNVgdC48Xt9xs HqeUq0bVSMxAHP0WVXdmOAaM2 MksG8iDaScGGJoQRGcE8DyjTA t HAubC358MWwtTwV6LWPzdzGcX 0WzCCHdnRfxDpZ5a9J8Aj7TBx 91QO64ZC57eYTep7V4lBH6Z6P h ALSmhkmvwkrfgTA2XAPpURSby Z52At3qoUwqSa0uNOFlNXK8OI KlwBUhI7FahN2wLiZjLOPzTML w I2AxrFUnVShsI788OHftQwV5X YCfeaUyT5WkVUPfqZzwIvI7t7 F0Uk6PYZxuenv2D2XtHoxugHO + OU29YYDyDC62jKQqeREzy8bmh Jb6KmUfETJvCXH4dIpmQOriq7 SrJELfA41pdERup0Q9ICNoaHy h cHN (more content not included)... [facility] Consent Formson 04-29-2024 Consent Forms [id number] FF [facility] Coding Summaryon 04-27-2024 Coding Summary HTMLBase 64 AqyoeevnBOx2nOa+PGhlYWQ+P R3SHMNrN97lpJAwgA0iL4HHAM lOSywgQVBQTElOSyIgbmFtZT1 kaXNjZXJu IC8+NO0sFDZbQbfleGCwc0T0x JG8E89lhx4jLHvpkAW7NCAvQc Mxfhlss7tfwHt8AJcyPkgxMtI t APXgzU34INB2gN88Ig08bHSnh BOnw1cecKx5RfZyYAZiJTN0sS qeVCeaz0LoUNNcC37ycOGwv5L 6 PTMdlBtsuROaFoBwaYP7xA4tV Ffnjjrys5tsurlrVnb5rn30mZ Jjw0Q2sIN3V4PpomV7YXDrmYG g OpafhLSRmF3qvvpjl7jxphsaH rMgOPXyZAh4USw0JCCclVfgNh CePS65IVW8VEEdshRjY0VjKWW s qFknPzO2f5P2Ox9JE8VSUfsxL 1VNTUFSWTwvdGQ+XN89rg34C2 DkHmitQpf4ASTiSVE2aND9yA4 n BSTkBTmsv9H6vDL0G7FvcuKnh a5qy5mmKEDqVPwqT43icQStq8 K8MFPpjGN3QJXdcNhmGaTfeL1 3 Oyc+ITQtqQfnt6GhScwqd4afu 6skcJw3ColzWKFzpzTqtVspIX I1f8UvTv9kIFBqsEH5xDC2zH8 i FsUfWkH0RIoqP699OoVlgVKeD rmvK79tU4PukOD+VHKnAbb9GW BmePnhLP6tO6PtOEHdepfnyTL m yGuxEP8fIQXcukjcZBJlrL9lV DWbA9z2YlAnXtR8QJdnY6FvFT RsbovbTt39wA8nQoWjVvK6KTj u P2HtcbG5GALhcESfRWpxHNY1N 58ou9V6PTYdZZUxCCD3eXO6bJ 1hbGlnbjogbGVmdDsgdmVydGl j NNroTYqnK730BAGjaPafKaNwQ GluZyBEYXRlOiAgMTEvMTMvMj AyNDwvdGQ+EVFiPSR8sOgdMFR n xOLbTKkjWt5efCqvqZhgVT6qI OEiphvwVMWpsO3zFGOnkQOtgS phQF8fUQLvteakv542DlEnRRX 0 KYOutFCfI0DofT9jMyBxGDUqH AZkW9IdeKSeFVewJ132NAiwGv O6SSXygaDqJ7SkQXUryJdbXvF 0 p9K2Zm7Wb4ImwdddY3MnkOTmC gGvNxgvLHo2X9QwXslgwQP+PC 03HGPiPQ74XFr2FFY8fPopLEy i WTApX0CfdL0fVjWmMMGwWWElV yc+PHRhYmxlIHdpZHRoPScxMD NeYsTrwGkhGU1mHl5oNUPmYLM v qVexfLPlSzMje2kjZSAoHAumH I3ywIvlH5OwzQL8DHXuh4b1Dq 10K02hP3YkeEO+AFFlvBW9pUJ 0 gF3zKiAoEfF1UVyoA523YvGqy BAzUbfxg4rza4yfhGc1NpB2NV BnuzKuyBgwHXX7c3QuMd64A56 s IHdpZHRoPSIxNSUiIHZhbGlnb b2huE8kAn8+JKDscQM5wPC7bP 3tBbPdNcG9VTslY903IvAylNF v Fvdxe2kxq8qnsDt0UhUeFTBuy gZusYhbSFO9j5SzSm65Y9QgpN sxr4TtRbj6xt03nJCmh7E0dPY 9 D6DiIZIpiezzwXNpbTacXV1tL OQkssftMWPkzK0rCMCrF5e3Oj XqDrA1FUwuJ2YyjhF7YKAfsCA g CFAduBZBfG0rnzuho3ndlhttC aLfFFDlETe7EGe6SKTtkTfwEd TfTQI2SmP4OMG9qWWjtM4bwGv n yqmirM1nOue+ZXO3oXFjwRBWA Y4fUdcgjIH+YUTrTIP7cGxxLQ vgYRLmzA8aKJFkC0u7GhDwIuJ 1 CBtqA1YiwsS1PHPngBFxNKPug AKElT2ysfzlg7jkrrzzXjCbKU MgWCj2YZl6QJOwjTdcGyEoIEF 0 GlF8VDN5vYBdfI2mjXribdvcr G9wOyc+QihlnYmeNMO8UWq2K1 UqEby4CHWwdYsnJI0gkGTuONj u Ps5lkLkdhCgnTE3sPFEhfiabi 221ThKgd6xzEFNjcREqTLbiMW S6J39gb4X9IZSwXOMyHQS6uEH 4 cB2veCorwcbfoOHznBegbdHkl GxhGUtdLFroU904FGEdeCkhFp KlJJy4L0RlHhf4YGFusMjgQS8 n tFAzSWtaUd7qtPecaXvfNJ2iH ZLykwpnm109ByKhx8bpJHKxlT BrYRxvLIO7H87vx0N4ONJpFWT w UDD2xGH0fZ3vaLlmhteicEVvr YuzifHtxZkfUQziDUanD148XC AyjIigRuYmwTh7V2JkBer5MXZ z uQccHO2jhRNpBSfvHv1chXhak DcpOQ9dPXMaurwje539LiNof9 tiUSQrfAPhZDbmXXR6H33md8S 6 UAYjKOGrTXU4qIZ8cS9orSimt jogbGVmdDsgdmVydGljYWwtYW orX150GFNjcRowPgBrqYoujlE g UDrgGLk0D2UeJmbrmIB+PC90Y TZtPC28xCUecCCed1oygIg7Ls IoXTHaTST7iMtoAJdjo4RaCQT t B77glCDiq2V2OIHgxYouoMCxA nZmkYS4lR0kWEljhkgfx7asib yhNfjrh5eddf19iH64N00iXRg p SVCkMUNcXBStPANbnOognj9kd G9wIi8+KYOmoIA5cYF2tB7pSA HiDyY2UIuqO909OgTimLHwLlv j x6jhh4qwhRk4JkW2QCDllmZuy UhuDGP5z2ZyTk47K93sGKplAU PqXOCjHRLfRZHnlWnvuo4jwB8 w Ii8+BLBxcYU7qUB1nG9yRhUkO mM4JLczZ561WvNykBLxFbkvW7 6zN3JooVW+WKRiExo1PIHfeBe s YY8ouJUtRAibAr0lWGD1KlZsP gMuXIzqQ2NiFRDgsmxgvdgehI S8JDArPJUbgU28Ce5dzFlwVSM w tOYFiC1xsmjuh5bjvcwcBvMsN IRtTCt5EPc7OUFdtBoiMwEyPV P2VmG8JKZ0yAFiwX0wuXvepxn g oF8xA5FgHGTloasbVp31gO1lO eXnXuO2AEtrVox+RklTSCwgSk FNRVMgVzwvdGQ+BTRvAUE1eHe l VPjvWQWmxA8eYNHgQ5q9CnLtF aN4ZEskG6TkTPAjvddiOk98uZ 4wEfFhPgO7EHwyK4BygqL6STU w fLVcEEbuCJF4K08cc2L1GNHgG NSgGGN6mGK4lM5ynKgqtqdmyY FxaBcovzTjqHvsSSvbUFrxL38 6 GGMepPdxXnGbZxR0KeR7WrA7D 6EkVqy5PFSqzNztMJ7hfKUrPB gdIp9txAybnAfsFR8yPAIevvl w LJXbmW1hPHHsuKPgmHwbKW7gG ACxswsnk834NgWuNXN5JXYydY SoQ1ZsoR4gOhFjNCUvSOEaB3K l fLEaAGjdY279ZQrwEjZ5STVdn nQqO3LmIVSkpKqoOpZ2u1N5Qk 44NyBZZWFyczwvdGQ+PHRkIHN 0 hCzdHRykPJNlgE1oYZBwB1g0R jSdUuQ9LDguC8FtOCSociigVa 80hS2wUrVaZfQ6DSdbM1EiowS 6 PMKijCCgVWbrSUJ6Q81tv8B7S OTjZHXfMBF4nIB0yA6zfKdxyk ogbGVmdDsgdmVydGljYWwtYWx p H284VYJklKwnOw7SSAG3B4UhY ml0QNQebOdnFY7ljRXbMDleIb 6wjHgjiPqjPF4yDIKfgsiyFAF k mB1gSCRnnJSciPavGN1sOTKuw przn348ZvCcLYC7TDTuxQLzQ6 DyiS8uEkUzJLJtISZoP0FfqEY t UXxmO176ZUqaVbK7OIXyuoVjW 1IoAMFioKvrQcV9d5M4Vz4VTR wvdGQ+WW77qo08Q8UdSfbnWjj 0 LCYfREM4xKW4rE2jWAYhHFzoh 1O3qDC8T4OdrjWuwe9kx0fnXN UzBHymQ88naLVdu9R8AOFxyRK 5 KCXbgUozThPbjD85Dwn+PGNvb Fage0YqKnpib0vio4yetWc8Hp KgQHKppmUwdSbxWVT8g8RnNm2 8 M11yFGwiVFSbDKBnIFLfCYGed Djjqj4ldO4nLm3+JMMdtPY4iY Y5iY2eHyMuWkQ2INirS000UkH v oPGzHksnj6iqo7frvEx4HfXyA EGfmgDioSvnCOW1v4YsDx66S4 QtxLupf9OaUpx4kh83lQCvl4H 5 uFT1O8WoKACqbtmswNUwhQidL N9tKWClznmjFADsyI8uABUoO2 b6WiTnHfS2VWezG0AzetE6YFO v fHWaWQHtnTHUjT2vhsuhu9kcq ckmLlCaRSKqEAp8SRz7QHIvvV xkUlNiXPK7QnK5ECV9lTVhsH4 h qGzpwvfbpH7mBlm+HTb0n9hht MVvCL1hfNM1PY78SG80iVVvu5 V9lVV6E9ImUXMjxpstnyqytMN 6 VIEnYKZaqH39Is9knRdrHy5aB HJeVHG1KXManDHxB3DfiO2bCl WwATTaIIOaO5WvnHUgHIlpT06 6 KNtzMpZ5PPRnseKhZ1FsQFFag YmnNtG9s9C7Nb4HZH71FR93OB 09mGBmd9Q9aIG0Q7YmBCWgppc t ozufcBH7GDRpJAVmnR13Jp2nc UreUh1wMREpZBH8WBKyoURqM0 FzuS0jRyWoNDFcCPTgC0TezIL t QIvtV873DIutReF5CIQihkLyU 9HdDWIitGpqWnT8e2W5Cy6WAh 85OU06DP93sPEfu2J4zQY4X2L h SCIblhormrwneKT7CERdNKOxq G71Hf1lfGurEj4jBJEmPRJ9CN QskPNpE7BoxG4iHvBkIJTnHPY w L1LppSXlXIhwJ040FMarUbQ8R CWvfwIvB8RyKQCxuXzpXsW5a7 Y5Ri8QFFtdsgf1G5AmQqbobAW + FN40SZMxYV20lJItlYBsf4dqz Hc3WtUoXANrVIG8iQfhIFhxj3 FuETPsI21smIGxj5P1YBRbrRl h cHN (more content not included)... [facility] Coding Summaryon 04-18-2024 Coding Summary HTMLBase 64 NacknfenLMb2yKy+PGhlYWQ+P X2BKEEyY72elQCkxV5uC8STPR lOSywgQVBQTElOSyIgbmFtZT1 kaXNjZXJu IC8+LY3cQXJrIkdkfBDoz1S3c ZC9D34udh4cSOrdmWC2WGMoCt Mmylafo6kqiGu3EUuaNqmpVeY t DIFwtJ16AOP7kJ75Qw69jMOsw TJjy5tkfFu0LlEuNMQuWDU9gP pmCGusb6YzHNPiC94cdOLun5H 6 FLMsqTwllDXnGpDxiIW3oN6sE Jvmmkddu4omyrsqWax1in31zS Nii2L2pQO6E0IuibM3DEVgfGJ g SxapbGYWoN1xbqzoo3afjemfV gXxJQIaRAj7HMj3DIYcrNubCd MoOE11CWG3LWQlzyMhR5MfOOS s dZqkBoM1c0J1Fm8OL1OIAihbU 1VNTUFSWTwvdGQ+PC06eb81N1 FqIuuaDka6LKUvMFR8dKR8hO4 n BACfZMszs8V0wJY3S8QgdaSli n3nd6oxRJDdSGnqS60bpXWsl4 S0ZWDqcQW4IAIyjAgvWlOmbB5 3 Oyc+PPOsvJlbm8PaPbaoj0azr 5aarMc8SzfzNIIgodQmfCrlBE B4d8FiBb2jVKBgaWE6pBR1aC8 i IzOqKjX1ZPqnQ504GrHaiDBiR afhN63nZ1VrfRA+CBZsYfk6GL GanQrnZG3mU6ZbRBVggvufxDI m vXvzVU7aRZCzvemyTTGwoU2rC HJsH2e1JoIiKnB0UQnsP5RiJH IgipbyEo55wR6hHwSpJkR2QNy u A1LmdvA4YGIhaRQsTScuNRW2U 00ah1Y5RMLnKTWnDRA9yJV0iV 1hbGlnbjogbGVmdDsgdmVydGl j FUqkAMirU295QDYoeFlvQaWwZ GluZyBEYXRlOiAgMTEvMDQvMj AyNDwvdGQ+GEXoJHS8oBanKNH n yKTmVWjmVb9soTodoSceDE8xV GWztudqCNOckH7ySZUalTSufU liJL7fXRIyemfkn450KaYxZDG 0 ZRMqzWRfY1UsvT7oFgUiDEBkW PNhT2JoxSDwDYusR594LYbhIx Z6YLNvkuKaN0LnEQUpsFaeXjO 0 y1R1Dn6Po6ZsthgjF7NpxRFnT xMtOwylDYc9A8QiQibwfCF+PC 64SNGiAD67THt8SQV0uVdpQTx i EAVbG4KnyH6mDtJkZIXrZZJpD yc+PHRhYmxlIHdpZHRoPScxMD MpRlUapFolQJ6wPb4nTDVtSTR v hChkuDDdXqRzf6mhBQEtINemO T1fzGobT6ZfvRD2PMTmi4f0Pr 33I01fP2OzrMU+SPBojAL4bXW 0 vJ2hSmUzTjO9YAviY237ExWqz GHoGfrnk4cop4zorEb6DbB7IY GlzqYghAinDKP0x7FoMf93S74 s IHdpZHRoPSIxNSUiIHZhbGlnb r5cjG2zDd4+GQYooSH5tTC6zY 5gUaEyDjS2HXweH792QnNggPD v Wrzip1zng3ekmXc0TtJeBWOtu wPpbHkxKJS6w2KjEk76D2NpoE hem0ZwSxi7su24gDGwx1R8nWG 9 X1BkEOJianlsmBThmWsqCH4hM XHccpswXRGggU4rAEWgN0t4Ve BbQxQ0KLznN0TizhK4BAWdmZT g TCEcqZSKoB9mvzdej1lnibztR nGvHMDeXEv3YDx3CDGypKtmQd TxKJN9KxE2TEV5lRHhkE2omOn n onrwpW7pDww+UMU7tWTeeZHDB K7mOrgmhVD+GRRgCFM9wLamRZ vhZWSjfT0kCKWwA9d9LbPmMlP 1 UOsvJ8PmmnQ4KKByeKGnIRVzy GRBrF6hzeecm1iuzjkeMwOsLK DyFCf2QLe6IHQtiDzdAkFpUMY 0 JgS6LGB3pKXlmG4ojFkiypxeu G9wOyc+AbjwfJmaHKV7GDl0Z2 VmWnz1GXZegXmhBG8aaXMjOKb u Ip4wfPueuBcrSB6tXOZcstybx 473YrNui9aoDZMlcPYuKKmhWI E8Q93yv6W6POPhBUXsWZI4zYR 4 bC1idLzdidzhmVVwvOmjspWzv ZrlOCieFMntH251GBJknHweWf KqXCe8H8AkDex1VDHyfSujGS4 n wWJvJAukAo5zyWnkcRotEQ1uV JCqjgxzq025MpGke2ivHBMvgJ RzOCqzXNB2E32xr9W6QOIlABW w TVI8yIR0hE3kwEjilfetrTLdc DftazSczDhgSLyvDQqnY805WB NlsWdlUjRowAp6N8IaUxg4UXV z fGjbAS2vrZBxNZkcAo0gxGgxg UxiYG2jLZZutctdb824ZyOuy2 vbWGSxnXBcAEhqXJD2R27px4K 6 LSKuDJXiIDN6uPO4dU1esAhcc jogbGVmdDsgdmVydGljYWwtYW qwL125JQZcqMshJpGykXbicsH g BVsnBHp1H3ZxToypmBC+PC90Y BDhLH96lVEccRRiu8ldiVv6Qa KbZIRqXWC1pOxgOAdlm5XlVRT t O42mkHRzm9U6BHMmvCczxSTmO pPwuQV3dO4tOPbplgutu0oipi jfZbkqi1lbmi69qD59W12yAAs p KAUcTROmKDWrRVNdeJdutf5za G9wIi8+GPAtrGT8cNV7aU9uRP RnFuF1SAnkM021GzKctWWvWrt j c8qae8cnuAz6AuS2MIZrhxJgb QuwKNL0s2HpTa26M08qVCkwSB RoOIJfCPDxATKqeTwkdz5jdJ6 w Ii8+QJHfiVZ0jWY9lN7kOpTcL tT5NAnaK955HdZemFWcFjsoA3 7sT9LvsRN+YKTuSff0GUXqtQx s BI6paZXfVLcxIm2oUIL5CbClF jWoRRisF0OqOLRewropjyqfeY W4PTLtLZMdfS75Fy2rvPttKHM w lIKKzX3razwie0ylwiajOeOmZ UZaLUh3TUp9DLIywWedVkCyMZ D5DaG7KYU4dEEhoR4ibKywymv g zX1hH0SyJRJzndyoJh35uE2nV oCyGyO9WQquSki+RklTSCwgSk FNRVMgVzwvdGQ+RCBhVVU8cCy l JPwoNVKfwZ4rJMAbO3f9FfFyB yH0ZBvjS3XrERSavubmDq90vQ 0mDkJgZnM7WEejK6VvfcP6UDP w cJEwZCzqRJM7U33fk2C5LDHuV HYmFTM1dEW2aO3uwEwigkptxX TmcBkipvYddSteGZuwTHfoN01 6 DGCdjRwgLxPlHiA4HbR2PmC8A 7QrBjb8UHBcxJxaDJ5auCFvER cjRc9shDqkzLmjLE3qGXFxqso w BEGjxL3zPQFkyOYlsSnzPA4pL VAymiyks111ZnSoLUJ9JCKwuZ XpM1XptC3qYpVaBHGfMPBfB5J l sCQpJAjtY279QSvsWeO5GNOgd sOgU2LwXWDqfArmCaW2z0K0Ge 44NyBZZWFyczwvdGQ+PHRkIHN 0 gNbiOEogTDVnaV0mBFTnR5o4G vCaLcG4UBzbN5VtVLGswotuAo 61yO4yNrBlUbH2OMmeV9TilbR 6 XQPhqYYfJRxbDWS2B45ok8X9A NBiVDUyTPA2uYB4fR4tvMzyzr ogbGVmdDsgdmVydGljYWwtYWx p B741WHTglTkcIh7LBCZ9B6QiH xr5UDIetGgeIO3iwUBlMXoyYe 2wsKmomPcdWT9oMOBwphpjUQD k nJ8wJIOijFGglSkcHJ0dGXCep gobl731IjCzZZQ9VMPcaKZdY0 TkfR7oBjPxYYQeLRZmX4DzkKQ t JPhdW638RWneUlS8FDVaxbBrK 2RbHYThxAzjKnI4w5S3Tf2HXV wvdGQ+DW23cb98E3NtQysaUbs 0 JPElPBD3lVF2xI7wZMAqFDrgt 9E0mFC2Y3NtpwBowe5mn7mzFO TwTLueM44qcRNpl8M0UWLlpCG 5 LSGpxXymCcNwqG08Mpg+PGNvb Rfbl3GgInhie6hqe0vvrAs6Xn JqMDWrwjYrdHyvDDS7v7YlSq6 8 K61iTEpmEZCcKAYoURYvZYFot Eubsx0xwS1sFo9+UBEcrZM4pD I6rE2fCwPnWiK3LFekZ863ZaF v dJKmJzutg2pii4buoKn2AdVwT BKcdhSdhWieTZW9n7UrEf01A2 BwbRstb7KvXte3ru70xNOso0I 5 oYP6F8TaSCEnzwdfgEApuLafB O6mHVMtnrgyONEdxI7cDQVwS4 j7YhDiCoC5IOzfW3HhygK3PCU v rPPrYWFrsVXXrS8yievgg1kxl uztDgZqHCBgRZu0WVj0QJWdhL biRrHcCOL9RuK4URL2kRKncO5 h jEbxewmsqZ6gGej+OPg1b0vne HDjVR6vcZN3CL84HY99vVRby3 G1vUG5M8ZsIIAsfcesjkvxjHO 6 ZSWaDKIjxY77Ex2mnHusAz6iG GGlJBJ2OYQyvWRpB7MorB8lKq NfBPFvKUVsC4LgxOCsDNsvG30 6 EQwjZlZ6LSXonuXmY6RcNWJgm DgiLpD6k0K4Nw7BTN61GW48VX 25nNZup8H4rTX6P5MxADYbmbf t jsorwGY9YJJbKCObcK84Wf7uz MjxXj9sXVAvYAL0HNGcnHZyH5 XdpA7pXoRyYEKaDKCtV1ZnaOO t FAmnF615QFqgLkA5OSChkpVlV 4RrTSNroExbSlV8v6M8Qs1JSz 06LI88VD64vKCwp4V7kNQ2Y5I h WWXraabjscstuTB8PIUyUHQqk F71Zg5kaMstAw5uNCOyTFA2JG CdnFGlB6CdsC6aKuRrPUUxKYB w O9HlwBHfORstK102FKhdRvC2G SRsgkXqS3LoFWZruHbtYiS1e1 C3Ce7LIUfedqo0L3OxVphfiJO + WN37EPVtZK32mKYupKHpy7whs Fn9RnMwQODlGRL8lWyrIPvex9 JxCVLkP54rdRHcm8P9AQPdaQd h cHN (more content not included)... [facility] Coding Summary HTMLBase 64 XoixpoleRIs7oYb+PGhlYWQ+P K6YCDZaZ21jhKGpwZ4qM0WYIZ lOSywgQVBQTElOSyIgbmFtZT1 kaXNjZXJu IC8+IX4bYMNyNmexjFDzd4A4f GC4R59nan2lMOkotLH9DIXpRt Sybenyw1ptrFi0IOebJykoIsK t COLylM93ZEP2lT96Ff58cVIwz BErq5knmRe4CxAcFEWyUMF7dV bhQCypi2EyTEDwJ09uuAWky1L 6 BSUzlYtjcOWxDwYsyKK9fF0bY Xmpcqdqv8ffevluXiz4jn64qT Blp9O3aDX5P0HbdcG6ZCAvpJS g YbtewITByA4ntskwc3xyzxrnH iOuHXKcWEo4JKz3KOXyoZsiVu IdFB79TLF9BBVpdeIcD7KbDMX s fRteMwH1m9N5Bg9NQ4RSPdkkD 1VNTUFSWTwvdGQ+RP76hm62K2 SdQnbrLpn3LEQaWOO2eCD4lG5 n BLSgBAhqc8N5pWB0J7NqrgMyc y8bg2hiTTLiAJvoB96wtTFxf8 L6QZXkgQP0ADRwjHhoDhGnnG9 3 Oyc+FMYxpFffv0DmLpilb2jsr 3bngQo2CgfiBRQqhoOwrIhmZY A9w2LaMg4mCQEsgGZ5bNZ9fC6 i XuNyPxC4NGinX650HoXgeFIrJ ngtP06dT8TpuJE+EXNuVwz6MN QnvSxdYM0pS4WqFGLzdiygnNI m nYqjGD4oYXHtjuxlXZRfrC4jY UVdK2c6CqNoXgU7RTpxI5BzUL YexwmwIp18vW0zQuDkPkO5HMf u S0HxkiY6JQDknDKbQQilRTT4P 38kt5B8GPPpYOPgDNG0eKJ1xB 1hbGlnbjogbGVmdDsgdmVydGl j KTnaBVohX725JGIfnVsgSsYmX GluZyBEYXRlOiAgMTEvMDQvMj AyNDwvdGQ+WYIaACV1hVbxFFB n lUYiXGqfRa1zuUpgpDdyZO2gB LYzqpujDBCkfY4jLDPbmTZulS xyKC5bNZHiscyhf368PbStKLI 0 QMVqpEEmT4PrsQ2sUoHtHCNyD SXpB3EqkUDyGQcaQ360GPzzHp L3FZHcszHwH6YgTJQtmCajPuA 0 h0Y9Fs7Rf3MfkshjO1FggSEuU pThNcsiQHa4X9LaCyyadWJ+PC 84AIRuPE33WVg7DJB1pTpyOUi i CZOyM4MgoS6uQvEdICDcAOJrM yc+PHRhYmxlIHdpZHRoPScxMD PcLiNvzWxjSR9dBo9jDDZzRCP v iXdiqSQfNxWuk4boRBCfWNkwO H9dlBaaC2XclGT3JBJin0f7Be 59G98tJ3FxxZX+VIWmzKQ9pZE 0 yV4vYoEaGpG3BXqcR239IuTwn WHeNfrpz3wzq0mqrBk5TfR3CS EwklOwjCjnBMN6o6BaFz13E73 s IHdpZHRoPSIxNSUiIHZhbGlnb l6jhV3uPg6+XDXwwPS2mXL3hO 1xVeMnDsW6KUfsH495DnEdxAV v Jpdbq2eee6mrlYj9ToLhZZCll qEkyQrnKXC4j6BfEh12S0KvpZ ksy3UiBuh7wc40kNMyk5D7rSS 9 L8GmSPPpvuhciKMyvLniRI7lT TAdghpfCZAazN5mHLHjR6x3Xa IhImA7LBhgA6MibkW1CFJnxRQ g SRMecTDJhT3jzqkiz7lprubaP pTkRUBnNGa1SHl6DSSicWjsPf AzOEG9BrA9SQM5uNJqrW9mxGg n fuvrbM3nQfz+FAG4sZPjfWNUY A2kAijtrBF+PKTbOZJ1bKjzXC bvAQHblU6zCOCoP7u3YnGqYeT 1 JWueS4OscqO7YENddVBwHNGqn MOLyO6yiboet2kxsmjjPoYtKS UsMUg4GIf2QGXwuFmwBtBlTRY 0 BrD7RXJ5qWLijY4knTlbotmdt G9wOyc+RmhwcYvfBFN2JZa7N2 GdHnu2XCUvuGuhZH3lmAGoUSp u Pk0dqXcwvYbdBB0zXBVhzhxoq 533NnTpf0feJZAtxYNxIWdyTY S1O57ue7X9MOKzVSKkVRN1xWB 4 dL0vbGtahydmgCGmeMpkowYiw UmzQDjoZDkxQ706PEZckZulMx VdVVm6O0UlNjh7TXLacKilKK7 n nOQxJRbcTo0xrUiytGbaGK2uA SExuqybj126YeLxw7rkOTSaoW MkUEffCBU0X67hd1L1DOJfVZG w MZR7xXZ8qR2cxItzvvnnmYTas TyqxxEbbIbzSVjxSDfsY684GH HhtObhRtKmdDa3K7CpCdr3KTL z uCvaVV9dfGEwWFnmRu9zmLuuc XatTU2kWKHlyseln977LvOxc6 ksWTVggLIdGTmmQZL7U64km7U 6 IUVxLREbPUB4dHG4fK2sfKieo jogbGVmdDsgdmVydGljYWwtYW vaS761IIKqxRteMhXigLbqnzR g MMiqPAt7N8XcQrrhiQF+PC90Y WQpLD19mNKkjROmw9smeJr4Pu VrPNQwIAO1jNczZVfuo9CnLZA t J52ssKVyh7F3JAOjqVjgaSMcK kLpzSW2aT9fVYswvocsr9qtzk ylDvrer1gyan05bI04D64wFIg p GTRiVIVzKYAvAGTofIjijl9rv G9wIi8+NBIllEE1fRA7yN8xTN AcPyF4LCnzG773SfYuiJNfTah j i2dto2zsvDr4UwD0IJJhhjUzo EhxFBH2f3TqPz08A62dDAavYH PkPUOiMEIwCVKtnWkcrd6mzX6 w Ii8+QNOqkJM7pKE4aT5pNaJoO vR5XDlqM344JeFpcZMwJroiM0 4qI0RkcPV+SXLlQta3YHAzxRa s PP0gcFEtSHmjXg2nDJT9OyVdH uGgQTazZ5VvMGIoglrjymsyfQ J0AFTnDTUvoZ75Oe4omWpwICZ w kXNGoN8dpikzw8klsxofKtDnW CTfNTe6TMb1JXXctOpmBmXfDQ O0AfC7DOR3mZQwgO3cnSoanvy g lK4hG4PbHIWriqygKa18nX1rO aOpGpR4PBnvVbj+RklTSCwgSk FNRVMgVzwvdGQ+BEEwWTB6kVp l AHdxQUFczH5mMWNmW0g2AnJkE wA9GArwI2IqYNMigvglTk12fN 3oFwYfEhB7PSvsP4DoftS9MEC w dLHcLEorFSA4P03ye6H0LETxS NIfBVQ0cWJ1zQ8ooHluqtwsyN GikBtuynWdqAslFXbwKGxeG44 6 FROxoUqdCoWdTwJ9TdV4ZzQ2K 1AvYqo0LPIyqGrySY0vaPJeRS epOt1nrWjdoVyhWQ4dRSHmmku w PSSitU5sFTMfmPScqEjbED2lH MEtvyskz614EgWgUVP3PARioL FnX0IliZ4sApFcEGJqZQOaB0A l kOWbCMjqK028HRrzAeK3DVJqg nUqZ1SmFZEccMzdIuA0p4S0Lt 44NyBZZWFyczwvdGQ+PHRkIHN 0 mBfrPKnyRFStiQ1jBRGgP6y9T uUtAkM1GJslR7CyYPOmjezeEq 81yJ2lMmRtGfZ1TRaoT9QspsU 6 KUXpePHnJWeoBJC0D36kx1Z6Y OPdISUvXZL2hVM0uU4hbUbkcy ogbGVmdDsgdmVydGljYWwtYWx p K299JYXhnBspXh0UIKP2G2AqT rc0USYgtGdxLC5vpEUqVEieFc 3qgHcgnDorUX8zXVJtyromXQJ k qX8kJTSqhQFmlOztTL2wRRIih ucsl142MyLmCAV9KBYskCMjJ3 FfbJ7kHcEgUUPvXQOeJ5KahDT t VGtnQ105HCxsUnT3GGAbzgGcA 8BcLMXhlZvrBgN2b3P2Kv6VBL wvdGQ+OL62ae23Y4RlJcobZqp 0 JSPxQHX7gYG5fE3bNIBjANeta 1G9sWN9D7HjteIhsf9cl5fuLY MqMVtmG84xsDBea6E9EJKlzMO 5 IFRycIuxIrAuuI34Tfe+PGNvb Ndvq5QmHsfvv3ntr9ndxYu8Nv KgTPUuxeDoxOmnUBB7h5YhPr2 8 H57gXPpdVAYzEYXcBLVjFZRlm Udaeu4rnU7gRu9+BHYzcPE3iA X5uI9rZgCgFnN6PWxfU043LeQ v jLUuVrjbs6wou0axbMu7TvHcM CLnofGclBmoWMM8c8CpBr41R6 KzyCtuf5OxUxg7qf34oDTtt4C 5 bDT9B6FpKMFjplpayHDgeBhaG V9qBBJohbhvDTHafI2wZAGcK9 u9OwNpKiN9KWesW0UvjxM2GUS v pGYjWTFsdPNCjW5jymhto8jwj wknSgSzEAKwEJl7YZt2JQLzyY agCiXmPGV8VfP0BRZ9xQMztT6 h yFpxshbaeK6bEmp+XGj6d1dqd BEbGN1qjRF1EL83TL09lYZwq7 C7xLQ4Y1LjOINtvgzpribtxGM 6 TGLnZGOscX10Du2fuIheWn4pB UQwWXX5ORLenRJbG1BpnB2cRn XhFYPwBTEzM8QzxVDdCEpdM42 6 HEcrThP6ZGJspcMmS1LtAUDoa PhyExS8p2Q6Np0XRA69CS98SZ 28sXLek3Y4pAM6R1PlTLPxgnu t laqgmEN6YCHrHZZpwZ00Io5vt BogXp3wTUVpCRH3NRAreGWeR6 SrcD8iSjUoHPJvBGJsA4UfzJF t BHobP807GAccTlU9UGOhdvIsO 3NyJQMpcOqtXlG6q1O9Fu5WGb 27IC40PJ91fQZkl0B9tWU1C4W h DEPovpvvtiebuVH5OGPqHPZjr E86Hm6jhYqsSq3sHXPjXVS7NA JeiEZdY2ObrS9yRjQsVIEbFAP w T9WuwGFfQQwyT812PHweOmB2J RSwrwMtK4VgEGNbdFotTdB3t7 Q8Qw8NTWyttzf0V4DxNjdtuQE + GQ34JIUaSY72dJFahRLej0pnt Be5VmLyZKXuHAF6gDmaLHghd3 HdMMHrF38kyLPxr9Z8UWAjmTz h cHN (more content not included)... [facility] TRANSTHORACIC ECHO (TTE) COM PLETEon 04-13-2024 TRANSTHORACIC ECHO (TTE) COMPLETE [address], [address] [place] [address] TRANSTHORACIC ECHOCARDIOGRAM REPORT Patient Name: FANI Caldwell Physician: [id number] Kingsley MD, [facility] Study Date: 04/13/2024 Ordering Provider: [id number] BONITA KINGSLEY MRN/PID: [id number] Fellow: Nurse: Date of /Age: 12 1935 / 88 years Vp Data: Maria Eugenia Lin RDCS, RVT Gender: M Additional Staff: Height: 175.26 cm Admit Date: Weight: 75.75 kg Admission Status: BSA / BMI: 1.91 m2 / 24.66 kg/m2 Department Location: [facility] Blood Pressure: 134 /76 mmHg Study Type: TRANSTHORACIC ECHO (TTE) COMPLETE Diagnosis/ICD: 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; 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 PHYSICIAN INTERPRETATION: Left Ventricle: Left ventricular ejection fraction is moderately decreased, by visual estimate at 40%. There is global hypokinesis of the left ventricle with minor regional variations. The left ventricular cavity size is moderately dilated. Left ventricular diastolic filling was not assessed. Atrial fibrillation was noted throughout the study. Left Atrium: The left atrium is severely dilated. Right Ventricle: The right ventricle is normal in size. There is normal right ventricular global systolic function. Right Atrium: The right atrium is moderately to severely dilated. Aortic Valve: The aortic valve appears abnormal. The aortic valve dimensionless index is 0.47. There is trace aortic valve regurgitation. The peak instantaneous gradient of the aortic valve is 16.3 mmHg. The mean gradient of the aortic valve is 9.0 mmHg. There is a TAVR in position with no stenosis or significant regurgitation. Mitral Valve: The mitral valve is moderately thickened. There is moderate mitral annular calcification. There is mild to moderate mitral valve regurgitation. Tricuspid Valve: The tricuspid valve is structurally normal. There is mild tricuspid regurgitation. Estimated RVSP 49 mmHg consistent with moderate pulmonary hypertension. Pulmonic Valve: The pulmonic valve is structurally normal. There is trace pulmonic valve regurgitation. Pericardium: No pericardial effusion noted. Aorta: The aortic root is normal. Pulmonary Artery: The Doppler estimated pulmonary artery diastolic pressure is 28.9 mmHg. Systemic Veins: The inferior vena cava appears normal in size. In comparison to the previous echocardiogram(s): When compared to study from March 2023, no significant interval changes were seen. CONCLUSIONS: 1. Left ventricular ejection fraction is moderately decreased, by visual estimate at 40%. 2. There is global hypokinesis of the left ventricle with minor regional variations. 3. Left ventricular cavity size is moderately dilated. 4. Atrial fibrillation was noted throughout the study. 5. There is normal right ventricular global systolic function. 6. The left atrium is severely dilated. 7. The right atrium is moderately to severely dilated. 8. The mitral valve is moderately thickened. 9. There is moderate mitral annular calcification. 10. Mild to moderate mitral valve regurgitation. 11. Estimated RVSP 49 mmHg consistent with moderate pulmonary hypertension. 12. There is a TAVR in position with no stenosis or significant regurgitation. 13. When compared to study from March 2023, no significant interval changes were seen. QUANTITATIVE DATA SUMMARY: 2D MEASUREMENTS: Normal Ranges: Ao Root d: 3.00 cm (2.0-3.7cm) LAs: 6.70 cm (2.7-4.0cm) RVIDd: 3.74 cm (0.9-3.6cm) IVSd: 0.97 cm (0.6-1.1cm) LVPWd: 0.87 cm (0.6-1.1cm) LVIDd: 6.97 cm (3.9-5.9cm) LVIDs: 5.73 cm LV Mass Index: 150.1 g/m2 LV % FS 17.8 % LV SYSTOLIC FUNCTION BY 2D PLANIMETRY (MOD): Normal Ranges: EF-A4C View: 36 % (>=55%) EF-A2C View: 22 % EF-Biplane: 30 % EF-Visual: 40 % LV EF Reported: 40 % LV DIASTOLIC FUNCTION: Normal Ranges: MV Peak E: 1.34 m/s (0.7-1.2 m/s) MITRAL VALVE: Normal Ranges: MV Vmax: 1.21 m/s (<=1.3m/s) MV peak P.9 mmHg (<5mmHg) MV mean P.0 mmHg (<48mmHg) MITRAL INSUFFICIENCY: Normal Ranges: MR Vmax: 555.33 cm/s AORTIC VALVE: Normal Ranges: AoV Vmax: 2.02 m/s (<=1.7m/s) AoV Peak P.3 mmHg (<20mmHg) AoV Mean P.0 mmHg (1.7-11.5mmHg) LVOT Max Johnny: 0.95 m/s (<=1.1m/s) AoV VTI: 35.80 cm (18-25cm) LVOT VTI: 16.70 cm LVOT Diameter: 2.70 cm (1.8-2.4cm) AoV Area, VTI: 2.67 cm2 (2.5-5.5cm2) AoV Area,Vmax: 2.69 cm2 (2.5-4.5cm2) AoV Dimensionless Index: 0.47 AORTIC INSUFFICIENCY: AI Vmax: 3.15 m/s AI Coyle (more content not included)... Normal [facility] US Heart Transthoracicon Aortic Valve Area by Continuity of Peak Velocity 2.69 cm2 [facility] Work Phone: Aortic Valve Area by Continuity of VTI 2.67 cm2 [facility] Work Phone: AV mn grad 9 mmHg [facility] Work Phone: AV pk grad 16.3 mmHg [facility] Work Phone: AV pk johnny 2.02 m/s [facility] Work Phone: LV A4C EF 35.9 [facility] Work Phone: LV Biplane EF 30 % [facility] Work Phone: LV EF 40 % [facility] Work Phone: LVIDd 6.97 cm [facility] Work Phone: LVOT diam 2.7 cm [facility] Work Phone: RVSP 41.9 mmHg [facility] Work Phone: [address], [address] [place] [address] TRANSTHORACIC ECHOCARDIOGRAM REPORT Patient Name: FANI Caldwell Physician: [id number] Bonita Kingsley MD, [facility] Study Date: 04/13/2024 Ordering Provider: [id number] BONITA KINGSLEY MRN/PID: [id number] Fellow: Nurse: Date of /Age: 12 1935 / 88 years Vp Data: Maria Eugenia Lin RDCS, RVT Gender: M Additional Staff: Height: 175.26 cm Admit Date: Weight: 75.75 kg Admission Status: BSA / BMI: 1.91 m2 / 24.66 kg/m2 Department Location: [facility] Blood Pressure: 134 /76 mmHg Study Type: TRANSTHORACIC ECHO (TTE) COMPLETE Diagnosis/ICD: 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; 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 PHYSICIAN INTERPRETATION: Left Ventricle: Left ventricular ejection fraction is moderately decreased, by visual estimate at 40%. There is global hypokinesis of the left ventricle with minor regional variations. The left ventricular cavity size is moderately dilated. Left ventricular diastolic filling was not assessed. Atrial fibrillation was noted throughout the study. Left Atrium: The left atrium is severely dilated. Right Ventricle: The right ventricle is normal in size. There is normal right ventricular global systolic function. Right Atrium: The right atrium is moderately to severely dilated. Aortic Valve: The aortic valve appears abnormal. The aortic valve dimensionless index is 0.47. There is trace aortic valve regurgitation. The peak instantaneous gradient of the aortic valve is 16.3 mmHg. The mean gradient of the aortic valve is 9.0 mmHg. There is a TAVR in position with no stenosis or significant regurgitation. Mitral Valve: The mitral valve is moderately thickened. There is moderate mitral annular calcification. There is mild to moderate mitral valve regurgitation. Tricuspid Valve: The tricuspid valve is structurally normal. There is mild tricuspid regurgitation. Estimated RVSP 49 mmHg consistent with moderate pulmonary hypertension. Pulmonic Valve: The pulmonic valve is structurally normal. There is trace pulmonic valve regurgitation. Pericardium: No pericardial effusion noted. Aorta: The aortic root is normal. Pulmonary Artery: The Doppler estimated pulmonary artery diastolic pressure is 28.9 mmHg. Systemic Veins: The inferior vena cava appears normal in size. In comparison to the previous echocardiogram(s): When compared to study from March 2023, no significant interval changes were seen. CONCLUSIONS: 1. Left ventricular ejection fraction is moderately decreased, by visual estimate at 40%. 2. There is global hypokinesis of the left ventricle with minor regional variations. 3. Left ventricular cavity size is moderately dilated. 4. Atrial fibrillation was noted throughout the study. 5. There is normal right ventricular global systolic function. 6. The left atrium is severely dilated. 7. The right atrium is moderately to severely dilated. 8. The mitral valve is moderately thickened. 9. There is moderate mitral annular calcification. 10. Mild to moderate mitral valve regurgitation. 11. Estimated RVSP 49 mmHg consistent with moderate pulmonary hypertension. 12. There is a TAVR in position with no stenosis or significant regurgitation. 13. When compared to study from March 2023, no significant interval changes were seen. QUANTITATIVE DATA SUMMARY: 2D MEASUREMENTS: Normal Ranges: Ao Root d: 3.00 cm (2.0-3.7cm) LAs: 6.70 cm (2.7-4.0cm) RVIDd: 3.74 cm (0.9-3.6cm) IVSd: 0.97 cm (0.6-1.1cm) LVPWd: 0.87 cm (0.6-1.1cm) LVIDd: 6.97 cm (3.9-5.9cm) LVIDs: 5.73 cm LV Mass Index: 150.1 g/m2 LV % FS 17.8 % LV SYSTOLIC FUNCTION BY 2D PLANIMETRY (MOD): Normal Ranges: EF-A4C View: 36 % (>=55%) EF-A2C View: 22 % EF-Biplane: 30 % EF-Visual: 40 % LV EF Reported: 40 % LV DIASTOLIC (more content not included)... STACYO Bonita Kingsley M D - 04/13/[address], [address] [place] [address] TRANSTHORACIC ECHOCARDIOGRAM REPORT Patient Name: FANI Caldwell Physician: [id number] Bonita Kingsley MD, [facility] Study Date: 04/13/2024 Ordering Provider: [id number] BONITA KINGSLEY MRN/PID: [id number] Fellow: Nurse: Date of /Age: 12 1935 / 88 years Vp Data: Maria Eugenia Courtenay RDCS, RVT Gender: M Additional Staff: Height: 175.26 cm Admit Date: Weight: 75.75 kg Admission Status: BSA / BMI: 1.91 m2 / 24.66 kg/m2 Department Location: [facility] Blood Pressure: 134 /76 mmHg Study Type: TRANSTHORACIC ECHO (TTE) COMPLETE Diagnosis/ICD: 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; 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, Atrial Fibrillation, CAD, CHF, COPD, Diabetes, HTN, Hyperlipidemia, 2/6 Systolic Murmur, Former Smoker, Pulmonary HTN, PVD, CKD-Stage II, Venous Insufficiency, Bladder and Prostate Cancer CPT Codes: Echo Complete w Full Doppler-14011 Study Detail: The following Echo studies were performed: 2D, M-Mode, Doppler and color flow. PHYSICIAN INTERPRETATION: Left Ventricle: Left ventricular ejection fraction is moderately decreased, by visual estimate at 40%. There is global hypokinesis of the left ventricle with minor regional variations. The left ventricular cavity size is moderately dilated. Left ventricular diastolic filling was not assessed. Atrial fibrillation was noted throughout the study. Left Atrium: The left atrium is severely dilated. Right Ventricle: The right ventricle is normal in size. There is normal right ventricular global systolic function. Right Atrium: The right atrium is moderately to severely dilated. Aortic Valve: The aortic valve appears abnormal. The aortic valve dimensionless index is 0.47. There is trace aortic valve regurgitation. The peak instantaneous gradient of the aortic valve is 16.3 mmHg. The mean gradient of the aortic valve is 9.0 mmHg. There is a TAVR in position with no stenosis or significant regurgitation. Mitral Valve: The mitral valve is moderately thickened. There is moderate mitral annular calcification. There is mild to moderate mitral valve regurgitation. Tricuspid Valve: The tricuspid valve is structurally normal. There is mild tricuspid regurgitation. Estimated RVSP 49 mmHg consistent with moderate pulmonary hypertension. Pulmonic Valve: The pulmonic valve is structurally normal. There is trace pulmonic valve regurgitation. Pericardium: No pericardial effusion noted. Aorta: The aortic root is normal. Pulmonary Artery: The Doppler estimated pulmonary artery diastolic pressure is 28.9 mmHg. Systemic Veins: The inferior vena cava appears normal in size. In comparison to the previous echocardiogram(s): When compared to study from March 2023, no significant interval changes were seen. CONCLUSIONS: 1. Left ventricular ejection fraction is moderately decreased, by visual estimate at 40%. 2. There is global hypokinesis of the left ventricle with minor regional variations. 3. Left ventricular cavity size is moderately dilated. 4. Atrial fibrillation was noted throughout the study. 5. There is normal right ventricular global systolic function. 6. The left atrium is severely dilated. 7. The right atrium is moderately to severely dilated. 8. The mitral valve is moderately thickened. 9. There is moderate mitral annular calcification. 10. Mild to moderate mitral valve regurgitation. 11. Estimated RVSP 49 mmHg consistent with moderate pulmonary hypertension. 12. There is a TAVR in position with no stenosis or significant regurgitation. 13. When compared to study from March 2023, no significant interval changes were seen. QUANTITATIVE DATA SUMMARY: 2D MEASUREMENTS: Normal Ranges: Ao Root d: 3.00 cm (2.0-3.7cm) LAs: 6.70 cm (2.7-4.0cm) RVIDd: 3.74 cm (0.9-3.6cm) IVSd: 0.97 cm (0.6-1.1cm) LVPWd: 0.87 cm (0.6-1.1cm) LVIDd: 6.97 cm (3.9-5.9cm) LVIDs: 5.73 cm LV Mass Index: 150.1 g/m2 LV % FS 17.8 % LV SYSTOLIC FUNCTION BY 2D PLANIMETRY (MOD): Normal Ranges: EF-A4C View: 36 % (>=55%) EF-A2C View: 22 % EF-Biplane: 30 % EF-Visual: 40 % LV EF Reported: 40 % LV DIASTOLIC FUNCTION: Normal Ranges: MV Peak E: 1.34 m/s (0.7-1.2 m/s) MITRAL VALVE: Normal Ranges: MV Vmax: 1.21 m/s (<=1.3m/s) MV peak P.9 mmHg (<5mmHg) MV mean P.0 mmHg (<48mmHg) MITRAL INSUFFICIENCY: Normal Ranges: MR Vmax: 555.33 cm/s AORTIC VALVE: Normal Ranges: AoV Vmax: 2.02 m/s (<=1.7m/s) AoV Peak P.3 mmHg (<20mmHg) AoV Mean P.0 mmHg (1.7-11.5mmHg) LVOT Max Johnny: 0.95 m/s (<=1.1m/s) AoV VTI: 35.80 cm (18-25cm) LVOT VTI: 16.70 cm LVOT Diameter: 2.70 cm (1.8-2.4cm) AoV Area, VTI: 2.67 cm2 (2.5-5.5cm2) AoV Area,V (more content not included)... [facility] Work Phone: [facility] Work Phone: Wound Cultureon 04-11-2024 Wound Culture left lower leg, , 04-08-24, 11:30 Moderate growth of Methicillin-Resistant Staphylococcus aureus and Light growth of Staphylococcus epidermidis Probable skin contamination No LAKEISHA performed on this organism Rare Gram Positive Cocci ORGANISM MRSA SUSCEPTIBILITY ORGANISM ID: 1 ANTIBIOTIC INTERPRETATION LAKEISHA STATUS ORGANISM MRSAMRSA Amox/Cla R >4/2 Verified Amp R >8 Verified Amp/Sul R <=8/4 Verified Ceftri R >32 Verified Cipro R >2 Verified Clinda R >4 Verified Eryth R >4 Verified Gent S <=4 Verified Levo R >4 Verified Linez S 4 Verified Nitro <=32 Verified Ox R >2 Verified Pen R >8 Verified Rif S <=1 Verified Tetra S <=4 Verified Tri/Sulf S <=0.5/9.5 Verified Vanc S 2 Verified Normal [facility] Comment on above: Performed By: #### [id number] #### [facility] (DEFAULT) [address] [place] [address] XR knee RT 3V - NOT FOR ER U Nat 03-08-2024 XR knee RT 3V - NOT FOR ER USE [facility] [address] [place] [address] XRay Report Signed Patient: Fani Chua MR#: [id number] : 1935 Acct:[id number] Age/Sex: 88 / M ADM Date: 03/08/24 [place] [facility] [place]: Type: [facility] CLI Attending Dr: Ramses Garcia DO Copies to: Ramses Garcia DO Ordering Provider: Ramses Garcia DO Date of Service: 03/08/24 XR/XR knee RT 3V - NOT FOR ER USE: M17.11 - Unilateral primary osteoarthritis, right knee RIGHT KNEE - 3 views CLINICAL HISTORY: Follow-up patellar fracture COMPARISON: Right knee 02/03/2024 FINDINGS: Patellar fracture is grossly unchanged alignment and healing compared to the prior study. Bones are grossly demineralized. Small joint effusion. Moderate degenerative changes with vascular calcifications. XR/XR knee RT 3V - NOT FOR ER USE IMPRESSION: NO SIGNIFICANT CHANGE IN PATELLAR FRACTURE FINDINGS. Impression dictated by: Henry Ramirez Jr., D.O.03/08/2024 4:14 PM Dictation Location: [place] [address] Transcribed By: [facility] 03/08/24 1614 Dictated By: Henry Ramirez Jr, DO 03/08/24 1613 Signed By: 03/08/24 1614 Normal [facility] XR shoulder RT min 2V*on XR shoulder RT min 2V* [facility] [address] [place] [address] XRay Report Signed Patient: Fani Chua MR#: [id number] : 1935 Acct:[id number] Age/Sex: 88 / M ADM Date: 03/08/24 [place] [facility] Room: Type: [facility] CLI Attending Dr: Ramses Garcia DO Copies to: Ramses Garcia DO Ordering Provider: Ramses Garcia DO Date of Service: 03/08/24 XR/XR shoulder RT min 2V*: M25.511 - Pain in right shoulder RIGHT SHOULDER - - 5 views CLINICAL HISTORY: Right anterior shoulder pain for 4 days. COMPARISON: None FINDINGS: Mild degenerative changes of the AC and glenohumeral joints without acute bony process. XR/XR shoulder RT min 2V* IMPRESSION: MILD DEGENERATIVE CHANGES OF THE RIGHT SHOULDER WITHOUT ACUTE BONY PROCESS. Impression dictated by: Henry Ramirez Jr., D.O.03/08/2024 4:13 PM Dictation Location: [place] [address] Transcribed By: [facility] 03/08/24 1613 Dictated By: Henry Ramirez Jr, DO 03/08/24 1609 Signed By: 03/08/24 1613 Normal [facility] A1C with Estimated Average G jaimen 02-27-2024 Glucose [Mass/Vol] 114 mg/dL Normal [facility] Comment on above: Result Comment: PERF ORMED BY: [facility] [address] [place] [address] PATHOLOGIST ERECTING CRANE OPERATOR TERI EDMOND M.D. Performed By: #### P T #### [facility] [address] Activated partial thrombopla stin time (aPTT) in platelet poor plasma by coagulation aOrdered By: Bright Lopez on 02-27-2024 aPTT Coag (PPP) [Time] 39.2 s High 25.1-36.5 [facility] Alanine aminotransferase [En zymatic activity/volume] in Serum or PlasmaOrdered By: Birght Lopez on 02-27-2024 ALT [Catalytic activity/Vol] 18 U/L Normal 7-52 [facility] Comment on above: Order Comment: FASTI NG Y Performed By: #### C MP, TSH3 wRFLX, LIPID, [id number], [id number] ####[facility] [id number] Albumin [Mass/volume] in Ser um or Plasma by Bromocresol green (BCG) dye binding methoOrdered By: Bright Lopez on 02-27-2024 Albumin BCG dye [Mass/Vol] 3.8 g/dL 3.5-5.7 [facility] Alkaline phosphatase [Enzyma tic activity/volume] in Serum or PlasmaOrdered By: Bright Lopez on 02-27-2024 ALP [Catalytic activity/Vol] 108 U/L High 34-104 [facility] Comment on above: Order Comment: FASTI NG Y Performed By: #### C MP, TSH3 wRFLX, LIPID, [id number], [id number] ####[address] Aspartate aminotransferase [ Enzymatic activity/volume] in Serum or PlasmaOrdered By: Bright Lopez on 02-27-2024 AST [Catalytic activity/Vol] 28 U/L Normal 13-39 [facility] Comment on above: Order Comment: FASTI NG Y Performed By: #### C MP, TSH3 wRFLX, LIPID, [id number], [id number] ####[address] Automated basophil %Ordered By: Bright Lopez on 02-27-2024 Basophils/100 WBC (Bld) 1.0 % Normal . [facility] Comment on above: Performed By: #### H S TROP, CBC, A1C WTH eA, PTT, PT ####[address] Automated basophil countOrde red By: Bright Lopez on 02-27-2024 Basophils (Bld) [#/Vol] 0.0 10*3/uL Normal 0.0-0.2 [facility] Comment on above: Result Comment: PERF ORMED BY: [facility] [address] [facility] [place] [address] PATHOLOGIST ERECTING CRANE OPERATOR TERI EDMOND M.D. Performed By: #### H S TROP, CBC, A1C WTH eA, PTT, PT ####[address] Automated blood monocyte cou ntOrdered By: Bright Lopez on 02-27-2024 Monocytes (Bld) [#/Vol] 0.7 10*3/uL Normal 0.0-0.8 [facility] Comment on above: Performed By: #### H S TROP, CBC, A1C WTH eA, PTT, PT ####[address] Automated eosinophil %Ordere d By: Bright Lopez on 02-27-2024 Eosinophils/100 WBC (Bld) 1.4 % Normal . [facility] Comment on above: Performed By: #### H S TROP, CBC, A1C WTH eA, PTT, PT ####[place] [id number] [place] [id number] [facility] Automated eosinophil countOr dered By: Bright Lopez on 02-27-2024 Eosinophils (Bld) [#/Vol] 0.1 10*3/uL Normal 0.0-0.45 [facility] Comment on above: Performed By: #### H S TROP, CBC, A1C WTH eA, PTT, PT ####[place] [address] Automated monocyte %Ordered By: Bright Lopez on 02-27-2024 Monocytes/100 WBC (Bld) 16.3 % Normal . [facility] Comment on above: Performed By: #### H S TROP, CBC, A1C WTH eA, PTT, PT ####[place] [id number] [facility] Automated neutrophil %Ordere d By: Bright Lopez on 02-27-2024 Neutrophils/100 WBC (Bld) 58.6 % Normal . [facility] Comment on above: Performed By: #### H S TROP, CBC, A1C WTH eA, PTT, PT ####[place] [address] Bilirubin.total [Mass/volume ] in Serum or PlasmaOrdered By: Bright Lopez on 02-27-2024 Bilirubin [Mass/Vol] 0.8 mg/dL Normal 0.3-1.0 [facility] Comment on above: Order Comment: FASTI NG Y Performed By: #### C MP, TSH3 wRFLX, LIPID, [id number], [id number] ####[place] [id number] [facility] Calcium [Mass/volume] in Ser um or PlasmaOrdered By: Bright Lopez on 02-27-2024 Calcium [Mass/Vol] 9.5 mg/dL Normal 8.6-10.3 [facility] Comment on above: Order Comment: FASTI NG Y Performed By: #### C MP, TSH3 wRFLX, LIPID, [id number], [id number] ####[place] [address] [place] [address] [facility] Carbon dioxide, total [Moles /volume] in Serum or PlasmaOrdered By: Bright Lopez on 02-27-2024 CO2 [Moles/Vol] 30.6 mmol/L Normal 21.0-31.0 [facility] Comment on above: Order Comment: FASTI NG Y Performed By: #### C MP, TSH3 wRFLX, LIPID, [id number], [id number] ####[address] [address] [facility] Chloride [Moles/volume] in S aime or PlasmaOrdered By: Bright Lopez on 02-27-2024 Chloride [Moles/Vol] 105 mmol/L Normal 98-107 [facility] Comment on above: Order Comment: FASTI NG Y Performed By: #### C MP, TSH3 wRFLX, LIPID, [id number], [id number] ####[address] [address] [facility] Cholesterol [Mass/volume] in Serum or PlasmaOrdered By: Bright Lopez on 02-27-2024 Cholesterol [Mass/Vol] 130 mg/dL Low 140-200 [facility] Comment on above: Order Comment: FASTI NG Y Result Comment: Chol less than 200 mg/dl low risk Chol 201-239 mg/dl borderline risk Chol 240 mg/dl and greater high risk Performed By: #### C MP, TSH3 wRFLX, LIPID, [id number], [id number] ####[address] [address] [place] Cholesterol in LDL Calc [Mas s/Vol]Ordered By: Bright Lopez on 02-27-2024 Cholesterol in LDL [Mass/Vol] 48 mg/dL 0-100 [facility] Cholesterol in VLDL Calc [Ma ss/Vol]Ordered By: Bright Lopez on 02-27-2024 Cholesterol in VLDL [Mass/Vol] 12 mg/dL [facility] Complete Blood Count Auto Di ffon 02-27-2024 Mean Corpuscular HGB Conc 33.4 g/dL Normal 32.5-35.6 [facility] Comment on above: Performed By: #### H S TROP, CBC, A1C WTH eA, PTT, PT ####[place] [address] [place] [address] [facility] NRBC% 0.0 /100{WBC} Normal 0-0.5 [facility] Comment on above: Performed By: #### H S TROP, CBC, A1C WTH eA, PTT, PT ####[address] [address] [facility] Comprehensive Metabolic Pane rui 02-27-2024 Albumin [Mass/Vol] 3.8 g/dL Normal 3.5-5.7 [facility] Comment on above: Order Comment: FASTI NG Y Performed By: #### C MP, TSH3 wRFLX, LIPID, [id number], [id number] ####[place] [id number] [facility] Creatinine Clr Calc Pharmacy 65.05 Normal [facility] Comment on above: Order Comment: FASTI NG Y Performed By: #### C MP, TSH3 wRFLX, LIPID, [id number], [id number] ####[place] [id number] [facility] GFR/1.73 sq M.predicted MDRD (S/P/Bld) [Vol rate/Area] mL/min/{1.73_m2} Normal [facility] Comment on above: Order Comment: FASTI NG Y Performed By: #### C MP, TSH3 wRFLX, LIPID, [id number], [id number] ####[place] [id number] [facility] Creatinine [Mass/volume] in Serum or PlasmaOrdered By: Bright Lopez on 02-27-2024 Creatinine [Mass/Vol] 0.77 mg/dL Normal 0.70-1.30 [facility] Comment on above: Order Comment: LOUISEI NG Y Performed By: #### C MP, TSH3 wRFLX, LIPID, [id number], [id number] ####[place] [address] Erythrocyte distribution wid th [Ratio] by Automated countOrdered By: Bright Lopez on 02-27-2024 Erythrocyte distribution width (RBC) [Ratio] 16.2 % High 12.0-14.8 [facility] Comment on above: Performed By: #### H S TROP, CBC, A1C WTH eA, PTT, PT ####[place] [address] Erythrocytes [#/volume] in B lood by Automated countOrdered By: Bright Lopez on 02-27-2024 RBC (Bld) [#/Vol] 3.98 10*6/uL Normal 3.90-5.60 [facility] Comment on above: Performed By: #### H S TROP, CBC, A1C WTH eA, PTT, PT ####[facility] Folate [Mass/volume] in Seru m or PlasmaOrdered By: Bright Lopez on 02-27-2024 Folate [Mass/Vol] 16.9 ng/mL >5.9 [facility] Glucose [Mass/volume] in Ser um or PlasmaOrdered By: Bright Lopez on 02-27-2024 Glucose [Mass/Vol] 92 mg/dL Normal 70-100 [facility] Comment on above: Order Comment: FASTI NG Y Result Comment: [place] Glucose Reference Range is dependent on time and content of last meal. Glucose of more than 200 mg/dL in a nonstressed, ambulatory subject supports the diagnosis of Diabetes Mellitus. ADA recommended reference range Performed By: #### C MP, TSH3 wRFLX, LIPID, [id number], [id number] ####[facility] [id number] Glucose mean value [Mass/vol ume] in Blood Estimated from glycated hemoglobinOrdered By: Bright Lopez on 02-27-2024 Average glucose Estimated from glycated hemoglobin (Bld) [Mass/Vol] 114 mg/dL [facility] Hematocrit [Volume Fraction] of Blood by Automated countOrdered By: Bright Lopez on 02-27-2024 Hematocrit (Bld) [Volume fraction] 36.4 % Low 38.8-50.0 [facility] Comment on above: Performed By: #### H S TROP, CBC, A1C WTH eA, PTT, PT ####[facility] [id number] Hemoglobin A1c percentageOrd ered By: Bright Lopez on 02-27-2024 HbA1c (Bld) [Mass fraction] 5.6 % Normal 4.3-5.6 [facility] Comment on above: Result Comment: Incr eased risk for diabetes: 5.7 - 6.4 diabetes: >6.4 glycemic control for adults with diabetes: <7.0 Performed By: #### P T #### [facility] [address] Hemoglobin [Mass/volume] in BloodOrdered By: Bright Lopez on 02-27-2024 Hemoglobin (Bld) [Mass/Vol] 12.2 g/dL Low 13.0-17.0 [facility] Comment on above: Performed By: #### H S TROP, CBC, A1C WTH eA, PTT, PT ####[facility] [id number] [place] [id number] [facility] INR in Platelet poor plasma by Coagulation assayOrdered By: Bright Lopez on 02-27-2024 INR Coag (PPP) [Relative time] 1.8 {INR} Normal [facility] Comment on above: Result Comment: INR Therapeutic Range A) Pre- and Peroperative OAT started two weeks before surgery. NOT HIP SURGERY: 1.5 - 2.5 HIP SURGERY: 2 - 3 B) Primary and secondary prevention of venous THROMBOSIS: 2 - 3 C) Active venous thrombosis, pulmonary embolism and prevention of recurrent venous thrombosis: 2 - 3 D) Prevention of arterial thromboembolism including patients with mechanical heart valves: 3 - 4.5 Performed By: #### H S TROP, CBC, A1C WTH eA, PTT, PT ####[facility] [id number] [place] [address] [facility] Leukocytes [#/volume] correc amparo for nucleated erythrocytes in Blood by Automated counOrdered By: Bright Lopez on 02-27-2024 WBC corrected for nucl RBC Auto (Bld) [#/Vol] 4.1 10*3/uL 4.1-10.5 [facility] Leukocytes [#/volume] in Blo od by Automated countOrdered By: Bright Lopez on 02-27-2024 WBC (Bld) [#/Vol] 4.1 10*3/uL Normal 4.1-10.5 [facility] Comment on above: Performed By: #### H S TROP, CBC, A1C WTH eA, PTT, PT ####[facility] [id number] [place] [address] [facility] Lipid Panelon 02-27-2024 LDL Cholesterol,Calculated 48 mg/dL Normal 0-100 [facility] Comment on above: Order Comment: CHRISTIAN GÓMEZ Y Result Comment: LDL ATP III CLASSIFICATION LDL less than 100 mg/dL Optimal LDL 100-129 mg/dL Near or above optimal LDL 130-159 mg/dL Borderline high LDL 160-189 mg/dL High LDL greater than 189 mg/dL Very high Performed By: #### C MP, TSH3 wRFLX, LIPID, [id number], [id number] ####[facility] [place] [id number] [facility] Triglyceride w/Reflex 60 mg/dL Normal 0-149 [facility] Comment on above: Order Comment: FASTSelena NG Y Result Comment: TRIG ATP III CLASSIFICATION TRIG less than 150 mg/dL Normal TRIG 150-199 mg/dL Borderline high TRIG 200-500 mg/dL High TRIG greater than 500 mg/dL Very high Standard traceable to the Center for Disease Conrtrol and Prevention (CDC) test method. Performed By: #### C MP, TSH3 wRFLX, LIPID, [id number], [id number] ####[address] VLDL CHOLESTEROL 12 mg/dL Normal [facility] Comment on above: Order Comment: CHRISTIAN GÓMEZ Y Performed By: #### C MP, TSH3 wRFLX, LIPID, [id number], [id number] ####[address] Lymphocytes [#/volume] in Bl ood by Automated countOrdered By: Bright Lopez on 02-27-2024 Lymphocytes (Bld) [#/Vol] 0.9 10*3/uL Low 1.00-4.8 [facility] Comment on above: Performed By: #### H S TROP, CBC, A1C WTH eA, PTT, PT ####[address] Lymphocytes/100 leukocytes i n Blood by Automated countOrdered By: Bright Lopez on 02-27-2024 Lymphocytes/100 WBC (Bld) 22.7 % Normal . [facility] Comment on above: Performed By: #### H S TROP, CBC, A1C WTH eA, PTT, PT ####[address] MCH [Entitic mass] by Automa amparo countOrdered By: Bright Lopez on 02-27-2024 MCH (RBC) [Entitic mass] 30.6 pg Normal 27.5-35.2 [facility] Comment on above: Performed By: #### H S TROP, CBC, A1C WTH eA, PTT, PT ####[address] MCHC Auto (RBC) [Mass/Vol]Or dered By: Bright Lopez on 02-27-2024 MCHC (RBC) [Mass/Vol] 33.4 g/dL 32.5-35.6 [facility] MCV [Entitic volume] by Auto mated countOrdered By: Bright Lopez on 02-27-2024 MCV (RBC) [Entitic vol] 91.6 fL Normal 83.5-101 [facility] Comment on above: Performed By: #### H S TROP, CBC, A1C WTH eA, PTT, PT ####[facility] [id number] Neutrophils [#/volume] in Bl ood by Automated countOrdered By: Bright Lopez on 02-27-2024 Neutrophils (Bld) [#/Vol] 2.4 10*3/uL Normal 1.8-7.7 [facility] Comment on above: Performed By: #### H S TROP, CBC, A1C WTH eA, PTT, PT ####[facility] [id number] No Panel InformationOrdered By: Brightelli Lopez on 02-27-2024 > 60.0 mL/Min [facility] 65.05 [facility] Nucleated erythrocytes [Pres ence] in Blood by Automated countOrdered By: Bright Lopez on 02-27-2024 Nucleated RBC Auto Ql (Bld) 0.0 /100{WBC} 0-0.5 [facility] Partial Thromboplastin Timeo n 02-27-2024 aPTT Coag (Bld) [Time] 39.2 s High 25.1-36.5 [facility] Comment on above: Result Comment: A he matocrit value greater than 55% may lead to inaccurate results in coagulation testing. Patients having hematocrit values >55% require a special collection tube for coagulation studies. Please contact the laboratory at [phone] for redraw instructions. PERFORMED BY: [facility] [address] [facility] [place] [address] PATHOLOGIST ERECTING CRANE OPERATOR TERI EDMOND M.D. Performed By: #### P T #### [address] Platelet mean volume [Entiti c volume] in Blood by Automated countOrdered By: Bright Lopez on 02-27-2024 Platelet mean volume (Bld) [Entitic vol] 8.3 fL Normal 6.6-10.1 [facility] Comment on above: Performed By: #### H S TROP, CBC, A1C WTH eA, PTT, PT ####[address] [place] [address] [facility] Platelets [#/volume] in Bloo d by Automated countOrdered By: Bright Lopez on 02-27-2024 Platelets (Bld) [#/Vol] 144 10*3/uL Low 150-450 [facility] Comment on above: Performed By: #### H S TROP, CBC, A1C WTH eA, PTT, PT ####[address] [place] [address] [facility] Potassium [Moles/volume] in Serum or PlasmaOrdered By: Bright Lopez on 02-27-2024 Potassium [Moles/Vol] 4.8 mmol/L Normal 3.5-5.1 [facility] Comment on above: Order Comment: FASTI NG Y Performed By: #### C MP, TSH3 wRFLX, LIPID, [id number], [id number] ####[address] [place] [address] [facility] Protein [Mass/volume] in Ser um or PlasmaOrdered By: Bright Lopez on 02-27-2024 Protein [Mass/Vol] 6.8 g/dL Normal 6.4-8.9 [facility] Comment on above: Order Comment: FASTI NG Y Performed By: #### C MP, TSH3 wRFLX, LIPID, [id number], [id number] ####[address] [place] [address] [facility] Prothrombin time (PT)Ordered By: Bright Lopez on 02-27-2024 PT Coag (PPP) [Time] 20.5 s High 9.0-12.9 [facility] Comment on above: Result Comment: A he matocrit value greater than 55% may lead to inaccurate results in coagulation testing. Patients having hematocrit values >55% require a special collection tube for coagulation studies. Please contact the laboratory at [phone] for redraw instructions. Performed By: #### H S TROP, CBC, A1C WTH eA, PTT, PT ####[place] [address] Serum globulin measurement b y calculation (mass/volume)Ordered By: Bright Lopez on 02-27-2024 Globulin (S) [Mass/Vol] 3.0 g/dL [facility] Comment on above: Order Comment: FASTI NG Y Performed By: #### C MP, TSH3 wRFLX, LIPID, [id number], [id number] ####[place] [address] Serum or plasma albumin/glob ulin mass ratioOrdered By: Bright Lopez on 02-27-2024 Albumin/Globulin [Mass ratio] 1.3 {ratio} [facility] Comment on above: Order Comment: FASTI NG Y Performed By: #### C MP, TSH3 wRFLX, LIPID, [id number], [id number] ####[address] [address] [place] [id number] [facility] Serum or plasma anion gap de terminationOrdered By: Bright Lopez on 02-27-2024 Anion gap [Moles/Vol] 10.2 mmol/L Normal 6.0-15.0 [facility] Comment on above: Order Comment: FASTI NG Y Performed By: #### C MP, TSH3 wRFLX, LIPID, [id number], [id number] ####[place] [id number] [facility] Serum or plasma high density lipoprotein (HDL) cholesterol measurementOrdered By: Bright Lopez on 02-27-2024 Cholesterol in HDL [Mass/Vol] 70 mg/dL Normal 23-92 [facility] Comment on above: Order Comment: FASTI NG Y Result Comment: HDL CHOL ATP-III CLASSIFICATION Cardiovascular Risk HDL > or equal to 60 mg/dL LOW HDL < 40 mg/dL HIGH Performed By: #### C MP, TSH3 wRFLX, LIPID, [id number], [id number] ####[facility] [id number] [place] [address] [facility] Serum or plasma total choles terol/high density lipoprotein (HDL) cholesterol mass ratOrdered By: Bright Lopez on 02-27-2024 Cholesterol.total/Chol esterol in HDL [Mass ratio] 1.9 {ratio} Normal <5.0 [facility] Comment on above: Order Comment: FASTI NG Y Performed By: #### C MP, TSH3 wRFLX, LIPID, [id number], [id number] ####[place] [address] [place] [id number] [facility] Sodium [Moles/volume] in Ser um or PlasmaOrdered By: Bright Lopez on 02-27-2024 Sodium [Moles/Vol] 141 mmol/L Normal 136-145 [facility] Comment on above: Order Comment: FASTI NG Y Performed By: #### C MP, TSH3 wRFLX, LIPID, [id number], [id number] ####[address] [place] [address] [facility] Thyroid Stim Hormone w/Rflxo n 02-27-2024 Thyroid Stim Hormone w/Rflx 1.76 u[iU]/mL Normal 0.45-5.33 [facility] Comment on above: Order Comment: FASTI NG Y Performed By: #### C MP, TSH3 wRFLX, LIPID, [id number], [id number] ####[place] [id number] [facility] Thyrotropin [Units/volume] i n Serum or PlasmaOrdered By: Bright Lopez on 02-27-2024 TSH Qn 1.76 m[IU]/L 0.45-5.33 [facility] Triglyceride [Mass/volume] i n Serum or PlasmaOrdered By: Bright Lopez on 02-27-2024 Triglyceride [Mass/Vol] 60 mg/dL 0-149 [facility] Troponin I High Sensitivityo n 02-27-2024 Troponin I High Sensitivity 22.5 pg/mL High 0.0-20.0 [facility] Comment on above: Result Comment: PERF ORMED BY: [facility] [address] [place] [address] PATHOLOGIST ERECTING CRANE OPERATOR TERI EDMOND M.D. Performed By: #### H S TROP, CBC, A1C WTH eA, PTT, PT ####[facility] [place] [phone] [facility] Troponin I.cardiac [Mass/vol ume] in Serum or Plasma by Detection limit <= 0.01 ng/Ordered By: Bright Lopez on 02-27-2024 Troponin I.cardiac DL <= 0.01 ng/mL [Mass/Vol] 22.5 pg/mL High 0.0-20.0 [facility] Urea nitrogen [Mass/volume] in Serum or PlasmaOrdered By: Bright Lopez on 02-27-2024 Urea nitrogen [Mass/Vol] 15 mg/dL Normal 7-25 [facility] Comment on above: Order Comment: FASTI NG Y Performed By: #### C MP, TSH3 wRFLX, LIPID, [id number], [id number] ####[address] [place] [id number] [facility] Vit. B12/Folate Profileon Folate 16.9 ng/mL Normal >5.9 [facility] Comment on above: Order Comment: FASTI NG Y Result Comment: Kelsey te reference range: >5.9 ng/ml The WHO technical consultation on folate and vitamin b12 deficiencies has determined that folate concentrations less than 4 ng/ml are considered deficient. Performed By: #### C MP, TSH3 wRFLX, LIPID, [id number], [id number] ####[place] [address] [place] [id number] [facility] Vitamin B12 ser/plasOrdered By: Bright Lopez on 02-27-2024 Cobalamin (Vitamin B12) [Mass/Vol] 390 pg/mL Normal 180-914 [facility] Comment on above: Order Comment: FASTI NG Y Performed By: #### C MP, TSH3 wRFLX, LIPID, [id number], [id number] ####[facility] [place] [id number] [facility] Vitamin D 25 Hydroxy Totalon 02-27-2024 Vitamin D 25 Hydroxy Total 29.3 ng/mL Low 30-100 [facility] Comment on above: Order Comment: CHRISTIAN Newman Result Comment: ZENA MIN D STATUS 25(OH)VITAMIN D RANGE (ng/mL) Deficient <20 Insufficient 20 to <30 Sufficient 30 to 100 Reference: Sita MF,Oliva ONTIVEROS, Barbara COYLE, et al. Evaluation,treatment, and prevention of vitamin D deficiency; an Endocrine Society clinical practice guideline. JCEM. 2010; 96(7):1911-30. PERFORMED BY: [facility] [address] [place] [address] PATHOLOGIST ERECTING CRANE OPERATOR TERI EDMOND M.D. Performed By: #### C MP, TSH3 wRFLX, LIPID, [id number], [id number] ####[place] [id number] [facility] Vitamin D+Metabolites [Mass/ volume] in Serum or PlasmaOrdered By: Bright Lopez on 02-27-2024 Vitamin D+Metabolites [Mass/Vol] 29.3 ng/mL Low 30-100 [facility] Alanine aminotransferase [En zymatic activity/volume] in Serum or PlasmaOrdered By: El Bliss on 02-26-2024 ALT [Catalytic activity/Vol] 20 U/L Normal 7-52 [facility] Comment on above: Performed By: #### P T #### [place] [id number] [facility] Albumin [Mass/volume] in Ser um or Plasma by Bromocresol green (BCG) dye binding methoOrdered By: El Bliss on 02-26-2024 Albumin BCG dye [Mass/Vol] 3.7 g/dL 3.5-5.7 [facility] Alkaline phosphatase [Enzyma tic activity/volume] in Serum or PlasmaOrdered By: El Bliss on 02-26-2024 ALP [Catalytic activity/Vol] 99 U/L Normal 34-104 [facility] Comment on above: Performed By: #### P T #### [address] Aspartate aminotransferase [ Enzymatic activity/volume] in Serum or PlasmaOrdered By: El Bliss on 02-26-2024 AST [Catalytic activity/Vol] 32 U/L Normal 13-39 [facility] Comment on above: Performed By: #### P T #### [address] Automated basophil %Ordered By: El Bliss on 02-26-2024 Basophils/100 WBC (Bld) 0.6 % Normal . [facility] Comment on above: Performed By: #### B MP, CBC #### [address] Automated basophil countOrde red By: El Bliss on 02-26-2024 Basophils (Bld) [#/Vol] 0.0 10*3/uL Normal 0.0-0.2 [facility] Comment on above: Result Comment: PERF ORMED BY: [place] [address] PATHOLOGIST ERECTING CRANE OPERATOR TERI EDMOND M.D. Performed By: #### B MP, CBC #### [address] Automated blood monocyte cou ntOrdered By: El Bliss on 02-26-2024 Monocytes (Bld) [#/Vol] 0.7 10*3/uL Normal 0.0-0.8 [facility] Comment on above: Performed By: #### B MP, CBC #### [address] Automated eosinophil %Ordere d By: El Bliss on 02-26-2024 Eosinophils/100 WBC (Bld) 0.8 % Normal . [facility] Comment on above: Performed By: #### B MP, CBC #### [address] Automated eosinophil countOr dered By: El Bliss on 02-26-2024 Eosinophils (Bld) [#/Vol] 0.0 10*3/uL Normal 0.0-0.45 [facility] Comment on above: Performed By: #### B MP, CBC #### [address] Automated monocyte %Ordered By: El Bliss on 02-26-2024 Monocytes/100 WBC (Bld) 15.6 % Normal . [facility] Comment on above: Performed By: #### B MP, CBC #### [address] Automated neutrophil %Ordere d By: El Bliss on 02-26-2024 Neutrophils/100 WBC (Bld) 71.9 % Normal . [facility] Comment on above: Performed By: #### B MP, CBC #### [address] BNP ser/plasOrdered By: El Bliss on 02-26-2024 Natriuretic peptide B (Bld) [Mass/Vol] 306.0 pg/mL High 5-100 [facility] Comment on above: Result Comment: PERF ORMED BY: [place] [address] PATHOLOGIST ERECTING CRANE OPERATOR TERI EDMOND M.D. Performed By: #### P T #### [address] Bilirubin Test strip Ql (U)O rdered By: El Bliss on 02-26-2024 Bilirubin Ql (U) Negative Negative [facility] Bilirubin.total [Mass/volume ] in Serum or PlasmaOrdered By: El Bliss on 02-26-2024 Bilirubin [Mass/Vol] 0.7 mg/dL Normal 0.3-1.0 [facility] Comment on above: Performed By: #### P T #### [address] BioFire Not Detectedon 02-25 BioFire Not Detected Not detected Normal Not Detecte [facility] Comment on above: Result Comment: This is a duplicate RP2.1 COVID (PCR) result to be used for statistical tracking purpose only. PERFORMED BY: [place] [address] PATHOLOGIST ERECTING CRANE OPERATOR TERI EDMOND M.D. Performed By: #### P T #### [address] COVID-19 Detected/Not Detect edOrdered By: El Bliss on 02-26-2024 SARS-CoV-2 (COVID-19) RNA SHARRI+non-probe Ql (Nph) Not detected Not Detecte [facility] CT head/brain wo conon 02-25 CT head/brain wo con [facility] Main [place] [address] [place] [address] CT Scan Report Signed Patient: Fani Chua MR#: [id number] : 1935 Acct:[id number] Age/Sex: 88 / M ADM Date: 02/26/24 Loc: ER Room: Type: [facility] ER Attending Dr: Copies to: El Bliss DO Ordering Provider: El Bliss DO Date of Service: 02/26/24 CT/CT head/brain wo con: weakness CT BRAIN WITHOUT CONTRAST: CLINICAL HISTORY: Generalized weakness, including the legs. COMPARISON: 01/19/2024 TECHNIQUE: Contiguous axial unenhanced images were obtained through the brain. This CT exam was performed using one or more following dose reduction techniques: Automated exposure control, adjustment of the mA and/or kV according to patient size, or use of iterative reconstruction technique. FINDINGS: There is generalized atrophy. The ventricles are normal in size and position. Mild microvascular changes are noted. There are no additional areas of abnormal attenuation. There is no hemorrhage, mass effect or extra-axial collections. The left maxillary sinus is not fully opacified. There is also some ethmoid mucosal thickening on that side.. Carotid siphon plaque is seen. CT/CT head/brain wo con IMPRESSION: ATROPHY AND CHRONIC MICROVASCULAR CHANGES. WORSENING SINUS DISEASE ON THE LEFT. NO ACUTE INTRACRANIAL ABNORMALITY. Impression dictated by: Cyn Llamas M.D.02/26/2024 10:10 AM Dictation Location: [place] [address] Transcribed By: [facility] 02/26/24 1010 Dictated By: Cyn Llamas MD 02/26/24 1006 Signed By: 02/26/24 1010 Normal [facility] Calcium [Mass/volume] in Ser um or PlasmaOrdered By: El Bliss on 02-26-2024 Calcium [Mass/Vol] 8.9 mg/dL Normal 8.6-10.3 [facility] Comment on above: Performed By: #### P T #### [address] Carbon dioxide, total [Moles /volume] in Serum or PlasmaOrdered By: El Bliss on 02-26-2024 CO2 [Moles/Vol] 25.3 mmol/L Normal 21.0-31.0 [facility] Comment on above: Performed By: #### P T #### [address] Chloride [Moles/volume] in S aime or PlasmaOrdered By: El Bliss on 02-26-2024 Chloride [Moles/Vol] 106 mmol/L Normal 98-107 [facility] Comment on above: Performed By: #### P T #### [address] Color of Urine by AutoOrdere d By: El Bliss on 02-26-2024 Color (U) Light-yellow Normal Yellow [facility] Comment on above: Order Comment: Name Collection Type:: Clean-Voided Midstream Performed By: #### P T #### [address] Complete Blood Count Auto Di ffon 02-26-2024 Mean Corpuscular HGB Conc 33.9 g/dL Normal 32.5-35.6 [facility] Comment on above: Performed By: #### B MP, CBC #### [address] Monocytes/100 WBC (Bld) 16.32 % Normal 0.00-20.00 [facility] Comment on above: Performed By: #### B MP, CBC #### [address] [place] [address] [place] NRBC% 0.1 /100{WBC} Normal 0-0.5 [facility] Comment on above: Performed By: #### B MP, CBC #### [address] Comprehensive Metabolic Pane rui 02-26-2024 Albumin [Mass/Vol] 3.7 g/dL Normal 3.5-5.7 [facility] Comment on above: Performed By: #### P T #### [address] Creatinine Clr Calc Pharmacy 65.05 Normal [facility] Comment on above: Performed By: #### P T #### [address] GFR/1.73 sq M.predicted MDRD (S/P/Bld) [Vol rate/Area] mL/min/{1.73_m2} Normal [facility] Comment on above: Performed By: #### P T #### [address] Creatinine [Mass/volume] in Serum or PlasmaOrdered By: El Bliss on 02-26-2024 Creatinine [Mass/Vol] 0.80 mg/dL Normal 0.70-1.30 [facility] Comment on above: Performed By: #### P T #### [address] ECG 12 lead ECGon 02-26-2024 ECG 12 lead ECG [facility] [place] [address] Electrocardiograph Report Signed Patient: Fani Chua MR#: [id number] : 1935 Acct:[id number] Age/Sex: 88 / M ADM Date: 02/26/24 Loc: Room: [address] [place] [address] Type: ADM IN Attending Dr: Bright Lopez MD Ordering Provider: El Bliss DO Date of Service: 02/26/24 ECG/ECG 12 lead ECG: Weakness Copies to: Test Reason : Blood Pressure : */* mmHG Vent. Rate : 92 BPM Atrial Rate : 87 BPM P-R Int : * ms QRS Dur : 136 ms QT Int : 370 ms P-R-T Axes : * -60 93 degrees QTcB Int : 457 ms Atrial fibrillation with premature ventricular or aberrantly conducted complexes Left axis deviation Left bundle branch block Abnormal ECG When compared with ECG of 21-Jan-2024 15:05, No significant change was found Confirmed by EL BLISS DO ([id number]) on 02/26/2024 5:27:36 PM Referred By: Electronically Signed By: EL BLISS DO Transcribed By: MUS Signed By El Bliss DO 02/25 1727 Normal [facility] Erythrocyte distribution wid th [Ratio] by Automated countOrdered By: El Bliss on 02-26-2024 Erythrocyte distribution width (RBC) [Ratio] 16.2 % High 12.0-14.8 [facility] Comment on above: Performed By: #### B MP, CBC #### [facility] [address] [place] [address] [place] Erythrocytes [#/volume] in B lood by Automated countOrdered By: El Bliss on 02-26-2024 RBC (Bld) [#/Vol] 3.74 10*6/uL Low 3.90-5.60 [facility] Comment on above: Performed By: #### B MP, CBC #### [facility] [address] [place] [address] [place] Glucose [Mass/volume] in Ser um or PlasmaOrdered By: El Bliss on 02-26-2024 Glucose [Mass/Vol] 105 mg/dL High 70-100 [facility] Comment on above: Result Comment: [place] Glucose Reference Range is dependent on time and content of last meal. Glucose of more than 200 mg/dL in a nonstressed, ambulatory subject supports the diagnosis of Diabetes Mellitus. ADA recommended reference range Performed By: #### P T #### [facility] [address] [place] [id number] [place] Glucose [Mass/volume] in Uri ne by Test stripOrdered By: El Bliss on 02-26-2024 Glucose Test strip (U) [Mass/Vol] Normal mg/dL Normal [facility] Hematocrit [Volume Fraction] of Blood by Automated countOrdered By: El Bliss on 02-26-2024 Hematocrit (Bld) [Volume fraction] 34.0 % Low 38.8-50.0 [facility] Comment on above: Performed By: #### B MP, CBC #### [address] Hemoglobin Test strip Ql (U) Ordered By: El Bliss on 02-26-2024 Hemoglobin Ql (U) Negative Negative [facility] Hemoglobin [Mass/volume] in BloodOrdered By: El Bliss on 02-26-2024 Hemoglobin (Bld) [Mass/Vol] 11.5 g/dL Low 13.0-17.0 [facility] Comment on above: Performed By: #### B MP, CBC #### [address] INR in Platelet poor plasma by Coagulation assayOrdered By: El Bliss on 02-26-2024 INR Coag (PPP) [Relative time] 1.7 {INR} Normal [facility] Comment on above: Result Comment: INR Therapeutic Range A) Pre- and Peroperative OAT started two weeks before surgery. NOT HIP SURGERY: 1.5 - 2.5 HIP SURGERY: 2 - 3 B) Primary and secondary prevention of venous THROMBOSIS: 2 - 3 C) Active venous thrombosis, pulmonary embolism and prevention of recurrent venous thrombosis: 2 - 3 D) Prevention of arterial thromboembolism including patients with mechanical heart valves: 3 - 4.5 PERFORMED BY: [place] [address] PATHOLOGIST ERECTING CRANE OPERATOR TERI EDMOND M.D. Performed By: #### P T #### [address] Ketones [Presence] in Urine by Test stripOrdered By: El Bliss on 02-26-2024 Ketones Ql (U) Negative Normal Negative [facility] Comment on above: Order Comment: Name Collection Type:: Clean-Voided Midstream Performed By: #### P T #### [address] Leukocyte esterase [Presence ] in Urine by Test stripOrdered By: El Bliss on 02-26-2024 Leukocyte esterase Test strip Ql (U) Negative Normal Negative [facility] Comment on above: Order Comment: Name Collection Type:: Clean-Voided Midstream Performed By: #### P T #### [address] Leukocytes [#/volume] correc amparo for nucleated erythrocytes in Blood by Automated counOrdered By: El Bliss on 02-26-2024 WBC corrected for nucl RBC Auto (Bld) [#/Vol] 4.7 10*3/uL 4.1-10.5 [facility] Leukocytes [#/volume] in Blo od by Automated countOrdered By: El Bliss on 02-26-2024 WBC (Bld) [#/Vol] 4.7 10*3/uL Normal 4.1-10.5 [facility] Comment on above: Performed By: #### B MP, CBC #### [place] [address] [place] Lymphocytes [#/volume] in Bl ood by Automated countOrdered By: El Bliss on 02-26-2024 Lymphocytes (Bld) [#/Vol] 0.5 10*3/uL Low 1.00-4.8 [facility] Comment on above: Performed By: #### B MP, CBC #### [place] [address] [place] Lymphocytes/100 leukocytes i n Blood by Automated countOrdered By: El Bliss on 02-26-2024 Lymphocytes/100 WBC (Bld) 11.1 % Normal . [facility] Comment on above: Performed By: #### B MP, CBC #### [place] [address] [place] MCH [Entitic mass] by Automa amparo countOrdered By: El Bliss on 02-26-2024 MCH (RBC) [Entitic mass] 30.8 pg Normal 27.5-35.2 [facility] Comment on above: Performed By: #### B MP, CBC #### [address] [place] [address] [place] MCHC Auto (RBC) [Mass/Vol]Or dered By: El Bliss on 02-26-2024 MCHC (RBC) [Mass/Vol] 33.9 g/dL 32.5-35.6 [facility] MCV [Entitic volume] by Auto mated countOrdered By: El Bliss on 02-26-2024 MCV (RBC) [Entitic vol] 90.8 fL Normal 83.5-101 [facility] Comment on above: Performed By: #### B MP, CBC #### [facility] [address] [place] [address] Magnesium [Mass/volume] in S aime or PlasmaOrdered By: El Bliss on 02-26-2024 Magnesium [Mass/Vol] 1.5 mg/dL Low 1.9-2.7 [facility] Comment on above: Result Comment: PERF ORMED BY: [place] [address] PATHOLOGIST ERECTING CRANE OPERATOR TERI EDMOND M.D. Performed By: #### P T #### [address] Monocyte distribution width [Entitic volume] in Blood by AutomatedOrdered By: El Bliss on 02-26-2024 Monocyte distribution width Auto (Bld) [Entitic vol] 16.32 % 0.00-20.00 [facility] Neutrophils [#/volume] in Bl ood by Automated countOrdered By: El Bliss on 02-26-2024 Neutrophils (Bld) [#/Vol] 3.4 10*3/uL Normal 1.8-7.7 [facility] Comment on above: Performed By: #### B MP, CBC #### [facility] [address] [place] [address] Nitrite Test strip Ql (U)Ord ered By: El Bliss on 02-26-2024 Nitrite Ql (U) Negative Negative [facility] No Panel InformationOrdered By: El Bliss on 02-26-2024 > 60.0 mL/Min [facility] 65.05 [facility] Nucleated erythrocytes [Pres ence] in Blood by Automated countOrdered By: El Bliss on 02-26-2024 Nucleated RBC Auto Ql (Bld) 0.1 /100{WBC} 0-0.5 [facility] Platelet mean volume [Entiti c volume] in Blood by Automated countOrdered By: El Bliss on 02-26-2024 Platelet mean volume (Bld) [Entitic vol] 8.3 fL Normal 6.6-10.1 [facility] Comment on above: Performed By: #### B MP, CBC #### [address] Platelets [#/volume] in Bloo d by Automated countOrdered By: El Bliss on 02-26-2024 Platelets (Bld) [#/Vol] 138 10*3/uL Low 150-450 [facility] Comment on above: Performed By: #### B MP, CBC #### [address] Potassium [Moles/volume] in Serum or PlasmaOrdered By: El Bliss on 02-26-2024 Potassium [Moles/Vol] 3.8 mmol/L Normal 3.5-5.1 [facility] Comment on above: Performed By: #### P T #### [address] Protein Test strip (U) [Mass /Vol]Ordered By: El Bliss on 02-26-2024 Protein (U) [Mass/Vol] Negative Negative [facility] Protein [Mass/volume] in Ser um or PlasmaOrdered By: El Bliss on 02-26-2024 Protein [Mass/Vol] 6.5 g/dL Normal 6.4-8.9 [facility] Comment on above: Performed By: #### P T #### [address] Prothrombin time (PT)Ordered By: El Bliss on 02-26-2024 PT Coag (PPP) [Time] 19.6 s High 9.0-12.9 [facility] Comment on above: Result Comment: A he matocrit value greater than 55% may lead to inaccurate results in coagulation testing. Patients having hematocrit values >55% require a special collection tube for coagulation studies. Please contact the laboratory at [phone] for redraw instructions. Performed By: #### P T #### [address] Respiratory (Upper) Panel, P CRon 02-26-2024 Respiratory (Upper) Panel, PCR Adenovirus Not detected Bordetella parapertussis Not detected Chlamydia pneumoniae Not detected Coronavirus 229E Not detected Coronavirus HKU1 Not detected Coronavirus NL63 Not detected Coronavirus OC43 Not detected Influenza A Not detected Influenza B Not detected Human Metapneumovirus Not detected Mycoplasma pneumoniae Not detected Parainfluenza Virus 1 Not detected Parainfluenza Virus 2 Not detected Parainfluenza Virus 3 Not detected Parainfluenza Virus 4 Not detected Bordetella pertussis-ptxP Not detected Human Rhino/Enterovirus Not detected Resp. Syncytial Virus Not detected COVID-19 Detected/Not Detected Not detected Blank Space ---- FLUA TEST INCLUDES Influenza A tests for the following clinically FLUA TEST INCLUDES significant subtypes: FLUA TEST INCLUDES - Influenza A FLUA TEST INCLUDES - Influenza A H1 FLUA TEST INCLUDES - Influenza A H1 2009 FLUA TEST INCLUDES - Influenza A H3 Blank Space ---- PERFORMED BY: [facility] [address] [place] [address] PATHOLOGIST ERECTING CRANE OPERATOR TERI EDMOND M.D. Normal [facility] Comment on above: Performed By: #### P T #### [place] [id number] [facility] Respiratory pathogens DNA an d RNA panel - Nasopharynx by SHARRI with non-probe detectionOrdered By: El Bliss on 02-26-2024 Respiratory pathogens DNA and RNA panel SHARRI+non-probe (Nph) [facility] Serum globulin measurement b y calculation (mass/volume)Ordered By: El Bliss on 02-26-2024 Globulin (S) [Mass/Vol] 2.8 g/dL Normal [facility] Comment on above: Performed By: #### P T #### [address] Serum or plasma albumin/glob ulin mass ratioOrdered By: El Bliss on 02-26-2024 Albumin/Globulin [Mass ratio] 1.3 {ratio} [facility] Comment on above: Performed By: #### P T #### [address] Serum or plasma anion gap de terminationOrdered By: El Bliss on 02-26-2024 Anion gap [Moles/Vol] 10.5 mmol/L Normal 6.0-15.0 [facility] Comment on above: Performed By: #### P T #### [address] Sodium [Moles/volume] in Ser um or PlasmaOrdered By: El Bliss on 02-26-2024 Sodium [Moles/Vol] 138 mmol/L Normal 136-145 [facility] Comment on above: Performed By: #### P T #### [address] Specific gravity Test strip (U) [Rel density]Ordered By: El Bliss on 02-26-2024 Specific gravity (U) [Rel density] 1.017 1.001-1.[address] [facility] Troponin I High Sensitivityo n 02-26-2024 Troponin I High Sensitivity 29.3 pg/mL High 0.0-20.0 [facility] Comment on above: Result Comment: PERF ORMED BY: [place] [address] PATHOLOGIST ERECTING CRANE OPERATOR TERI EDMOND M.D. Performed By: #### P T #### [address] Troponin I High Sensitivity 30.9 pg/mL High 0.0-20.0 [facility] Comment on above: Result Comment: PERF ORMED BY: [place] [address] PATHOLOGIST ERECTING CRANE OPERATOR TERI EDMOND M.D. Performed By: #### P T #### [address] Troponin I.cardiac [Mass/vol ume] in Serum or Plasma by Detection limit <= 0.01 ng/Ordered By: El Bliss on 02-26-2024 Troponin I.cardiac DL <= 0.01 ng/mL [Mass/Vol] 30.9 pg/mL High 0.0-20.0 [facility] Urea nitrogen [Mass/volume] in Serum or PlasmaOrdered By: El Bliss on 02-26-2024 Urea nitrogen [Mass/Vol] 20 mg/dL Normal 7-25 [facility] Comment on above: Performed By: #### P T #### [place] [id number] [place] Urinalysison 02-26-2024 Bilirubin,Urine Negative Normal Negative [facility] Comment on above: Order Comment: Name Collection Type:: Clean-Voided Midstream Performed By: #### P T #### [address] Glucose Ql (U) Normal Normal Normal [facility] Comment on above: Order Comment: Name Collection Type:: Clean-Voided Midstream Performed By: #### P T #### [place] [id number] [place] Nitrite,Urine Negative Normal Negative [facility] Comment on above: Order Comment: Name Collection Type:: Clean-Voided Midstream Performed By: #### P T #### [address] [address] [place] Occult Blood,Urine Negative Normal Negative [facility] Comment on above: Order Comment: Name Collection Type:: Clean-Voided Midstream Result Comment: PERF ORMED BY: [place] [address] PATHOLOGIST ERECTING CRANE OPERATOR TERI EDMOND M.D. Performed By: #### P T #### [address] Protein,Urine Negative Normal Negative [facility] Comment on above: Order Comment: Name Collection Type:: Clean-Voided Midstream Performed By: #### P T #### [address] Specificy [place],Urine 1.017 Normal 1.001-1.03 0 [facility] Comment on above: Order Comment: Name Collection Type:: Clean-Voided Midstream Performed By: #### P T #### [address] Urobilinogen,Urine Normal Normal Normal [facility] Comment on above: Order Comment: Name Collection Type:: Clean-Voided Midstream Performed By: #### P T #### [address] Urine appearanceOrdered By: El Bliss on 02-26-2024 Appearance (U) Clear Normal Clear [facility] Comment on above: Order Comment: Name Collection Type:: Clean-Voided Midstream Performed By: #### P T #### [address] Urobilinogen Test strip (U) [Mass/Vol]Ordered By: El Bliss on 02-26-2024 Urobilinogen (U) [Mass/Vol] Normal mg/dL Normal 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 There is mild hyperinflation. Interstitial markings are slightly prominent. Minor basilar atelectasis or scarring is seen. There is no focal parenchymal consolidation, effusion or pneumothorax. The heart is enlarged. The hilar and mediastinal silhouettes are within normal limits. There is no vascular congestion. The visualized bony structures are osteopenic. There is mild degenerative change at the spine. 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 MINIMAL INTERSTITIAL CHANGE. MILD FAILURE IS NOT EXCLUDED. Impression dictated by: Cyn Llamas M.D.02/26/2024 10:06 AM Dictation Location: [place] [address] Transcribed By: [facility] 02/26/24 1006 Dictated By: Cyn Llamas MD 02/26/24 1002 Signed By: 02/26/24 1006 Normal [facility] pH of Urine by Test stripOrd ered By: El Bliss on 02-26-2024 pH (U) 5.0 [pH] Normal 5.0-9.0 [facility] Comment on above: Order Comment: Name Collection Type:: Clean-Voided Midstream Performed By: #### P T #### [facility] [address] XR knee RT 3V - NOT FOR ER U Nat 02-03-2024 XR knee RT 3V - NOT FOR ER USE [facility] [address] [place] [address] XRay Report Signed Patient: Fani Chua MR#: [id number] : 1935 Acct:[id number] Age/Sex: 88 / M ADM Date: 02/03/24 Loc: [facility] Room: Type: [facility] Attending Dr: Roly Morales DO Copies to: Roly Morales DO Ordering Provider: Roly Morales DO Date of Service: 02/03/24 XR/XR knee RT 3V - NOT FOR ER USE: S82.001A - Unspecified fracture of right patella, initial... RIGHT KNEE - 3 views CLINICAL HISTORY: Follow-up patellar fracture COMPARISON: Right knee 01/06/2024 FINDINGS: Patellar fracture is less conspicuous suggestive of healing response. Small joint effusion. Moderate degenerative changes. Vascular calcifications. XR/XR knee RT 3V - NOT FOR ER USE IMPRESSION: HEALING PATELLAR FRACTURE. Impression dictated by: Henry Ramirez Jr., D.ORachel02/03/2024 3:28 PM Dictation Location: [facility] Transcribed By: [facility] 02/03/24 1528 Dictated By: Henry Ramirez Jr, DO 02/03/24 1528 Signed By: 02/03/24 1528 Normal [facility] Anisocytosis [Presence] in B lood by Light microscopyOrdered By: Italia Moore on 01-22-2024 Anisocytosis Ql (Bld) Slight Normal [facility] Comment on above: Performed By: #### B MP, CBC #### [facility] [address] Basic Metabolic Panelon Creatinine Clr Calc Pharmacy 65.05 Normal [facility] Comment on above: Performed By: #### B MP, CBC #### [facility] [address] [place] [id number] [place] GFR/1.73 sq M.predicted MDRD (S/P/Bld) [Vol rate/Area] mL/min/{1.73_m2} Normal [facility] Comment on above: Performed By: #### B MP, CBC #### [facility] [address] [place] [address] [place] Basophils Auto (Bld) [#/Vol] Ordered By: Italia Moore on 01-22-2024 Basophils (Bld) [#/Vol] N/A [facility] Basophils/100 WBC Auto (Bld) Ordered By: Italia Moore on 01-22-2024 Basophils/100 WBC (Bld) N/A [facility] Basophils/100 leukocytes in Blood by Manual countOrdered By: Italia Moore on 01-22-2024 Basophils/100 WBC (Bld) 1 % Normal 0-2 [facility] Comment on above: Performed By: #### B MP, CBC #### [facility] [address] [place] [address] [place] Calcium [Mass/volume] in Ser um or PlasmaOrdered By: Italia Moore on 01-22-2024 Calcium [Mass/Vol] 8.8 mg/dL Normal 8.6-10.3 [facility] Comment on above: Performed By: #### B MP, CBC #### [facility] [address] [place] [address] [place] Carbon dioxide, total [Moles /volume] in Serum or PlasmaOrdered By: Italia Moore on 01-22-2024 CO2 [Moles/Vol] 30.6 mmol/L Normal 21.0-31.0 [facility] Comment on above: Performed By: #### B MP, CBC #### [facility] [address] [place] [address] [place] Chloride [Moles/volume] in S aime or PlasmaOrdered By: Italia Moore on 01-22-2024 Chloride [Moles/Vol] 106 mmol/L Normal 98-107 [facility] Comment on above: Performed By: #### B MP, CBC #### [facility] [address] [place] [address] [place] Cholesterol [Mass/volume] in Serum or PlasmaOrdered By: Italia Moore on 01-22-2024 Cholesterol [Mass/Vol] 122 mg/dL Low 140-200 [facility] Comment on above: Chol less than 200 m g/dl low riskChol 201-239 mg/dl borderline riskChol 240 mg/dl and greater high risk Result Comment: Chol less than 200 mg/dl low risk Chol 201-239 mg/dl borderline risk Chol 240 mg/dl and greater high risk Performed By: #### B MP, CBC #### [facility] [address] [place] [address] [place] Cholesterol in LDL Calc [Mas s/Vol]Ordered By: Italia Moore on 01-22-2024 Cholesterol in LDL [Mass/Vol] 41 mg/dL 0-100 [facility] Comment on above: LDL ATP III CLASSIFI CATIONLDL less than 100 mg/dL OptimalLDL 100-129 mg/dL Near or above optimalLDL 130-159 mg/dL Borderline highLDL 160-189 mg/dL HighLDL greater than 189 mg/dL Very high Cholesterol in VLDL Calc [Ma ss/Vol]Ordered By: Italia Moore on 01-22-2024 Cholesterol in VLDL [Mass/Vol] 10 mg/dL [facility] Creatinine [Mass/volume] in Serum or PlasmaOrdered By: Italia Moore on 01-22-2024 Creatinine [Mass/Vol] 0.80 mg/dL Normal 0.70-1.30 [facility] Comment on above: Performed By: #### B MP, CBC #### [facility] [address] [place] [address] [place] Diff and CBCon 01-22-2024 Giant Platelet Tally 1 /100{WBC} Normal [facility] Comment on above: Performed By: #### B MP, CBC #### [facility] [address] [place] [address] Mean Corpuscular HGB Conc 33.2 g/dL Normal 32.5-35.6 [facility] Comment on above: Performed By: #### B MP, CBC #### [address] Microcytosis Slight Normal [facility] Comment on above: Performed By: #### B MP, CBC #### [facility] [address] [place] [address] [place] Myelocytes 3 % High 0-0 [facility] Comment on above: Performed By: #### B MP, CBC #### [facility] [address] [place] [address] [place] Platelet Estimate Decreased Normal Normal [facility] Comment on above: Performed By: #### B MP, CBC #### [facility] [address] [place] [address] Platelet Morphology Normal Normal Normal [facility] Comment on above: Result Comment: PERF ORMED BY: [place] [address] PATHOLOGIST ERECTING CRANE OPERATOR TERI EDMOND M.D. Performed By: #### B MP, CBC #### [address] Eosinophils Auto (Bld) [#/Vo l]Ordered By: Italia Moore on 01-22-2024 Eosinophils (Bld) [#/Vol] N/A [facility] Eosinophils/100 WBC Auto (Bl d)Ordered By: Italia Moore on 01-22-2024 Eosinophils/100 WBC (Bld) N/A [facility] Eosinophils/100 leukocytes i n Blood by Manual countOrdered By: Italia Moore on 01-22-2024 Eosinophils/100 WBC (Bld) 1 % Normal 1-3 [facility] Comment on above: Performed By: #### B MP, CBC #### [facility] [address] [place] [address] Erythrocyte distribution wid th [Ratio] by Automated countOrdered By: Italia Moore on 01-22-2024 Erythrocyte distribution width (RBC) [Ratio] 16.8 % High 12.0-14.8 [facility] Comment on above: Performed By: #### B MP, CBC #### [address] Erythrocytes [#/volume] in B lood by Automated countOrdered By: Italia Moore on 01-22-2024 RBC (Bld) [#/Vol] 3.84 10*6/uL Low 3.90-5.60 [facility] Comment on above: Performed By: #### B MP, CBC #### [facility] [address] [place] [address] [place] Giant platelets/100 leukocyt es [Ratio] in Blood by Manual countOrdered By: Italia Moore on 01-22-2024 Giant platelets/100 WBC Manual cnt (Bld) [Ratio] 1 /100{WBC} [facility] Glucose [Mass/volume] in Ser um or PlasmaOrdered By: Italia Moore on 01-22-2024 Glucose [Mass/Vol] 87 mg/dL Normal 70-100 [facility] Comment on above: ADA recommended refe rence rangeRandom Glucose Reference Range is dependent on time and content of last meal. Glucose of more than 200 mg/dL in a nonstressed, ambulatory subject supports the diagnosis of Diabetes Mellitus. Result Comment: [place] om Glucose Reference Range is dependent on time and content of last meal. Glucose of more than 200 mg/dL in a nonstressed, ambulatory subject supports the diagnosis of Diabetes Mellitus. ADA recommended reference range Performed By: #### B MP, CBC #### [facility] [address] Hematocrit [Volume Fraction] of Blood by Automated countOrdered By: Italia Moore on 01-22-2024 Hematocrit (Bld) [Volume fraction] 34.9 % Low 38.8-50.0 [facility] Comment on above: Performed By: #### B MP, CBC #### [facility] [address] [place] [address] [place] Hemoglobin [Mass/volume] in BloodOrdered By: Italia Moore on 01-22-2024 Hemoglobin (Bld) [Mass/Vol] 11.6 g/dL Low 13.0-17.0 [facility] Comment on above: Performed By: #### B MP, CBC #### [address] INR in Platelet poor plasma by Coagulation assayOrdered By: Italia Moore on 01-22-2024 INR Coag (PPP) [Relative time] 2.2 {INR} Normal [facility] Comment on above: INR Therapeutic Rang e A) Pre- and Peroperative OAT started two weeks before surgery. NOT HIP SURGERY: 1.5 - 2.5 HIP SURGERY: 2 - 3B) Primary and secondary prevention of venous THROMBOSIS: 2 - 3C) Active venous thrombosis, pulmonary embolismand prevention of recurrent venous thrombosis: 2 - 3D) Prevention of arterial thromboembolismincluding patients with mechanical heart valves: 3 - 4.5 Result Comment: INR Therapeutic Range A) Pre- and Peroperative OAT started two weeks before surgery. NOT HIP SURGERY: 1.5 - 2.5 HIP SURGERY: 2 - 3 B) Primary and secondary prevention of venous THROMBOSIS: 2 - 3 C) Active venous thrombosis, pulmonary embolism and prevention of recurrent venous thrombosis: 2 - 3 D) Prevention of arterial thromboembolism including patients with mechanical heart valves: 3 - 4.5 PERFORMED BY: [place] [address] PATHOLOGIST ERECTING CRANE OPERATOR TERI EDMOND M.D. Performed By: #### C OVID 19 [facility] #### [address] Leukocytes [#/volume] correc amparo for nucleated erythrocytes in Blood by Automated counOrdered By: Italia Moore on 01-22-2024 WBC corrected for nucl RBC Auto (Bld) [#/Vol] 5.0 10*3/uL 4.1-10.5 [facility] Leukocytes [#/volume] in Blo od by Automated countOrdered By: Italia Moore on 01-22-2024 WBC (Bld) [#/Vol] 5.0 10*3/uL Normal 4.1-10.5 [facility] Comment on above: Performed By: #### B MP, CBC #### [address] Lipid Panelon 01-22-2024 LDL Cholesterol,Calculated 41 mg/dL Normal 0-100 [facility] Comment on above: Result Comment: LDL ATP III CLASSIFICATION LDL less than 100 mg/dL Optimal LDL 100-129 mg/dL Near or above optimal LDL 130-159 mg/dL Borderline high LDL 160-189 mg/dL High LDL greater than 189 mg/dL Very high Performed By: #### B MP, CBC #### [address] Triglyceride w/Reflex 51 mg/dL Normal 0-149 [facility] Comment on above: Result Comment: TRIG ATP III CLASSIFICATION TRIG less than 150 mg/dL Normal TRIG 150-199 mg/dL Borderline high TRIG 200-500 mg/dL High TRIG greater than 500 mg/dL Very high Standard traceable to the Center for Disease Conrtrol and Prevention (CDC) test method. Performed By: #### B MP, CBC #### [address] VLDL CHOLESTEROL 10 mg/dL Normal [facility] Comment on above: Performed By: #### B MP, CBC #### [facility] [address] [place] [address] Lymphocytes Auto (Bld) [#/Vo l]Ordered By: Italia Moore on 01-22-2024 Lymphocytes (Bld) [#/Vol] N/A [facility] Lymphocytes/100 WBC Auto (Bl d)Ordered By: Italia Moore on 01-22-2024 Lymphocytes/100 WBC (Bld) N/A [facility] Lymphocytes/100 leukocytes i n Blood by Manual countOrdered By: Italia Moore on 01-22-2024 Lymphocytes/100 WBC (Bld) 22 % Normal 18-42 [facility] Comment on above: Performed By: #### B MP, CBC #### [address] MCH [Entitic mass] by Automa amparo countOrdered By: Italia Moore on 01-22-2024 MCH (RBC) [Entitic mass] 30.1 pg Normal 27.5-35.2 [facility] Comment on above: Performed By: #### B MP, CBC #### [facility] [address] [place] [address] MCHC Auto (RBC) [Mass/Vol]Or dered By: Italia Moore on 01-22-2024 MCHC (RBC) [Mass/Vol] 33.2 g/dL 32.5-35.6 [facility] MCV [Entitic volume] by Auto mated countOrdered By: Italia Moore on 01-22-2024 MCV (RBC) [Entitic vol] 90.9 fL Normal 83.5-101 [facility] Comment on above: Performed By: #### B MP, CBC #### [address] Manual blood segmented neutr ophils/100 leukocytesOrdered By: tIalia Moore on 01-22-2024 Segmented neutrophils/100 WBC (Bld) 62 % Normal 50-70 [facility] Comment on above: Performed By: #### B MP, CBC #### [facility] [address] [id number] [place] Microcytes LM Ql (Bld)Ordere d By: Italia Moore on 01-22-2024 Microcytes Ql (Bld) Slight [facility] Monocytes Auto (Bld) [#/Vol] Ordered By: Italia Moore on 01-22-2024 Monocytes (Bld) [#/Vol] N/A [facility] Monocytes/100 WBC Auto (Bld) Ordered By: Italia Moore on 01-22-2024 Monocytes/100 WBC (Bld) N/A [facility] Monocytes/100 leukocytes in Blood by Manual countOrdered By: Italia Moore on 01-22-2024 Monocytes/100 WBC (Bld) 12 % High 2-11 [facility] Comment on above: Performed By: #### B MP, CBC #### [facility] [address] [place] [address] [place] Myelocytes/100 WBC Manual cn t (Bld)Ordered By: Italia Moore on 01-22-2024 Myelocytes/100 WBC (Bld) 3 % High 0-0 [facility] Neutrophils Auto (Bld) [#/Vo l]Ordered By: Italia Moore on 01-22-2024 Neutrophils (Bld) [#/Vol] N/A [facility] Neutrophils/100 WBC Auto (Bl d)Ordered By: Italia Moore on 01-22-2024 Neutrophils/100 WBC (Bld) N/A [facility] No Panel InformationOrdered By: Italia Moore on 01-22-2024 Estimated GFR (CKD-EPI) > 60.0 mL/Min [facility] Creatinine Clearance (Chem 65.05 [facility] > 60.0 mL/Min [facility] 65.05 [facility] Nucleated erythrocytes [Pres ence] in Blood by Automated countOrdered By: Italia Moore on 01-22-2024 Nucleated RBC Auto Ql (Bld) N/A [facility] Platelet adequacy [Presence] in Blood by Light microscopyOrdered By: Italia Moore on 01-22-2024 Platelets LM Ql (Bld) Decreased Normal [facility] Platelet mean volume [Entiti c volume] in Blood by Automated countOrdered By: Italia Moore on 01-22-2024 Platelet mean volume (Bld) [Entitic vol] 8.5 fL Normal 6.6-10.1 [facility] Comment on above: Result Comment: PERF ORMED BY: [place] [address] PATHOLOGIST ERECTING CRANE OPERATOR TERI EDMOND M.D. Performed By: #### B MP, CBC #### [facility] [address] [place] [address] Platelet morphology finding [Identifier] in BloodOrdered By: Italia Moore on 01-22-2024 Platelet morphology finding Nom (Bld) Normal Normal [facility] Platelets [#/volume] in Bloo d by Automated countOrdered By: Italia Moore on 01-22-2024 Platelets (Bld) [#/Vol] 115 10*3/uL Significant change down 150-450 [facility] Comment on above: Delta: 141 on Performed By: #### B MP, CBC #### [facility] [address] [place] [address] Potassium [Moles/volume] in Serum or PlasmaOrdered By: Italia Moore on 01-22-2024 Potassium [Moles/Vol] 4.1 mmol/L Normal 3.5-5.1 [facility] Comment on above: Performed By: #### B MP, CBC #### [facility] [address] [place] [address] Prothrombin time (PT)Ordered By: Italia Moore on 01-22-2024 PT Coag (PPP) [Time] 24.8 s High 9.0-12.9 [facility] Comment on above: A hematocrit value g reater than 55% may lead to inaccurate results in coagulation testing. Patients having hematocrit values >55% require a special collection tube for coagulation studies. Please contact the laboratory at [phone] for redraw instructions. Result Comment: A he matocrit value greater than 55% may lead to inaccurate results in coagulation testing. Patients having hematocrit values >55% require a special collection tube for coagulation studies. Please contact the laboratory at [phone] for redraw instructions. Performed By: #### C OVID 19 [facility] #### [address] RBC morphologyOrdered By: Chyna Moore on 01-22-2024 RBC morphology finding Nom (Bld) N/A [facility] Serum or plasma anion gap de terminationOrdered By: Italia Moore on 01-22-2024 Anion gap [Moles/Vol] 8.5 mmol/L Normal 6.0-15.0 [facility] Comment on above: Performed By: #### B MP, CBC #### [address] Serum or plasma high density lipoprotein (HDL) cholesterol measurementOrdered By: Italia Moore on 01-22-2024 Cholesterol in HDL [Mass/Vol] 71 mg/dL Normal 23-92 [facility] Comment on above: HDL CHOL ATP-III CLA SSIFICATION Cardiovascular RiskHDL > or equal to 60 mg/dL LOWHDL < 40 mg/dL HIGH Result Comment: HDL CHOL ATP-III CLASSIFICATION Cardiovascular Risk HDL > or equal to 60 mg/dL LOW HDL < 40 mg/dL HIGH Performed By: #### B MP, CBC #### [address] Serum or plasma total choles terol/high density lipoprotein (HDL) cholesterol mass ratOrdered By: Italia Moore on 01-22-2024 Cholesterol.total/Chol esterol in HDL [Mass ratio] 1.7 {ratio} Normal <5.0 [facility] Comment on above: Result Comment: PERF ORMED BY: [place] [address] PATHOLOGIST ERECTING CRANE OPERATOR TERI EDMOND M.D. Performed By: #### B MP, CBC #### [address] Sodium [Moles/volume] in Ser um or PlasmaOrdered By: Italia Moore on 01-22-2024 Sodium [Moles/Vol] 141 mmol/L Normal 136-145 [facility] Comment on above: Performed By: #### B MP, CBC #### [address] Triglyceride [Mass/volume] i n Serum or PlasmaOrdered By: Italia Moore on 01-22-2024 Triglyceride [Mass/Vol] 51 mg/dL 0-149 [facility] Comment on above: TRIG ATP III CLASSIF ICATIONTRIG less than 150 mg/dL NormalTRIG 150-199 mg/dL Borderline highTRIG 200-500 mg/dL High TRIG greater than 500 mg/dL Very highStandard traceable to the Center for Disease Conrtrol and Prevention (CDC) test method. Urea nitrogen [Mass/volume] in Serum or PlasmaOrdered By: Italia Moore on 01-22-2024 Urea nitrogen [Mass/Vol] 19 mg/dL Normal 7-25 [facility] Comment on above: Performed By: #### B MP, CBC #### [address] Anisocytosis [Presence] in B lood by Light microscopyOrdered By: Mick Putnam on 01-21-2024 Anisocytosis Ql (Bld) Slight Normal [facility] Comment on above: Performed By: #### P T #### [address] Basic Metabolic Panelon 08-0 Creatinine Clr Calc Pharmacy 61.06 Normal [facility] Comment on above: Result Comment: PERF ORMED BY: [place] [address] PATHOLOGIST ERECTING CRANE OPERATOR TERI EDMOND M.D. Performed By: #### P T #### [address] GFR/1.73 sq M.predicted MDRD (S/P/Bld) [Vol rate/Area] mL/min/{1.73_m2} Normal [facility] Comment on above: Performed By: #### P T #### [address] Basophils Auto (Bld) [#/Vol] Ordered By: Mick Putnam on 01-21-2024 Basophils (Bld) [#/Vol] N/A [facility] Basophils/100 WBC Auto (Bld) Ordered By: Mick Putnam on 01-21-2024 Basophils/100 WBC (Bld) N/A [facility] CT angio headon 01-21-2024 CT angio head [facility] [place] [address] [place] [address] CT Scan Report Signed Patient: Fani Chua MR#: [id number] : 1935 Acct:[id number] Age/Sex: 88 / M ADM Date: 01/21/24 Loc: ER Room: Type: PRE ER Attending Dr: Copies to: Mick Putnam DO Ordering Provider: Mick Putnam DO Date of Service: 01/21/24 CT/CT angio head: left arm numbness ([id number]) CT/CT angio neck: left arm numbness ([id number]) CT/CT head stroke alert wo con: acute stroke/neuro deficits CT head stroke alert wo con, CT angio neck, CT angio head 01/21/2024 3:22 PM SIGNS AND SYMPTOMS: Lightheaded nausea left arm and hand tingling at 1:00 today. TECHNIQUE: Multi-detector CT angiography axial slices of the head and neck were obtained before and during intravenous administration of IV contrast material. Sagittal, coronal, and 3-D reconstructions were performed and viewed on a separate workstation. CT was performed with one or more of the following dose reduction techniques: Automated exposure control, adjustment of the mA and/or kV according to patient size, or use of iterative reconstruction technique. Stenoses were measured using the NASCET criteria. COMPARISON: CT brain 12/20/2023. CTA 06/04/2023 FINDINGS: Noncontrast head CT: There is no evidence of midline shift, intra or extra-axial fluid collection, hemorrhage or CT evidence of stroke. Cortical atrophy with chronic microvascular ischemic changes. Posterior fossa appears unremarkable. Visualized intraorbital contents demonstrate no acute findings. Partially visualized left maxillary sinus disease. The surrounding soft tissues are normal. Findings were discussed with Dr. Putnam 3:43 PM 01/21/2024 CTA HEAD: Posterior inferior cerebellar arteries : patent Basilar artery: patent Superior cerebellar arteries: patent Posterior cerebral arteries: patent Intracranial segments of the internal carotid arteries: Moderate calcification without critical stenosis or occlusion. MCA: patent AYDIN: patent Anterior Communicating artery: patent Posterior Communicating arteries: Right is patent. Left is absent. CTA NECK: Vertebral arteries : patent Common Carotid arteries: Mild calcification without critical stenosis or occlusion. Internal Carotid arteries: Moderate calcification of the carotid bulbs without critical stenosis or occlusion. This appears to extend into the common ICAs causing less than 50% stenosis. Left maxillary sinus disease. No gross central airway mass. Visualized lung apices demonstrate emphysema. Osseous structures demonstrate cervical spondylosis. CT/CT head stroke alert wo con IMPRESSION: No acute intracranial pathology. No evidence of critical stenosis, aneurysmal dilatation, dissection or occlusion. Impression dictated by: Henry Ramirez Jr., D.O.01/21/2024 3:47 PM Dictation Location: [place] [address] Transcribed By: [facility] 01/21/24 1547 Dictated By: Henry Ramirez Jr, DO 01/21/24 1535 Signed By: 01/21/24 1547 Normal [facility] Calcium [Mass/volume] in Ser um or PlasmaOrdered By: Mick Putnam on 01-21-2024 Calcium [Mass/Vol] 9.0 mg/dL Normal 8.6-10.3 [facility] Comment on above: Performed By: #### P T #### [address] Capillary blood glucose tiffanie urement by glucometer (mass/volume)Ordered By: Mick Putnam on 01-21-2024 Glucose [Mass/Vol] 107 mg/dL Normal [facility] Comment on above: Random Glucose Refer ence Range is dependent on time and content of last meal. Glucose of more than 200 mg/dL in a nonstressed, ambulatory subject supports the diagnosis of Diabetes Mellitus. Result Comment: [place] Glucose Reference Range is dependent on time and content of last meal. Glucose of more than 200 mg/dL in a nonstressed, ambulatory subject supports the diagnosis of Diabetes Mellitus. PERFORMED BY: [facility] [place] [address] PATHOLOGIST ERECTING CRANE OPERATOR TERI EDMOND M.D. Performed By: #### B MP, CBC #### [address] Carbon dioxide, total [Moles /volume] in Serum or PlasmaOrdered By: Mick Putnam on 01-21-2024 CO2 [Moles/Vol] 25.8 mmol/L Normal 21.0-31.0 [facility] Comment on above: Performed By: #### P T #### [address] Chloride [Moles/volume] in S aime or PlasmaOrdered By: Mick Putnam on 01-21-2024 Chloride [Moles/Vol] 104 mmol/L Normal 98-107 [facility] Comment on above: Performed By: #### P T #### [address] Creatinine [Mass/volume] in Serum or PlasmaOrdered By: Mick Putnam on 01-21-2024 Creatinine [Mass/Vol] 0.88 mg/dL Normal 0.70-1.30 [facility] Comment on above: Performed By: #### P T #### [place] [address] [place] Diff and CBCon 01-21-2024 Mean Corpuscular HGB Conc 33.0 g/dL Normal 32.5-35.6 [facility] Comment on above: Performed By: #### P T #### [place] [address] [place] Monocytes/100 WBC (Bld) 17.72 % Normal 0.00-20.00 [facility] Comment on above: Performed By: #### P T #### [address] Myelocytes 3 % High 0-0 [facility] Comment on above: Performed By: #### P T #### [place] [address] [place] Ovalocytes Slight Normal [facility] Comment on above: Performed By: #### P T #### [facility] [address] Platelet Estimate Decreased Normal Normal [facility] Comment on above: Performed By: #### P T #### [facility] [address] Platelet Morphology Normal Normal Normal [facility] Comment on above: Result Comment: PERF ORMED BY: [place] [address] PATHOLOGIST ERECTING CRANE OPERATOR TERI EDMOND M.D. Performed By: #### P T #### [address] Poikilocytosis Slight Normal [facility] Comment on above: Performed By: #### P T #### [address] ECG 12 lead ECGon 01-21-2024 ECG 12 lead ECG [facility] [place] [address] [place] [address] Electrocardiograph Report Signed Patient: Fani Chua MR#: [id number] : 1935 Acct:[id number] Age/Sex: 88 / M ADM Date: 01/21/24 Loc: ER Room: Type: PRE ER Attending Dr: Ordering Provider: Mick Putnam DO Date of Service: 01/21/2402/05/1519 ECG/ECG 12 lead ECG: Neuro Symptoms/Deficit Copies to: Test Reason : Blood Pressure : 119/63 mmHG Vent. Rate : 73 BPM Atrial Rate : 220 BPM P-R Int : * ms QRS Dur : 134 ms QT Int : 380 ms P-R-T Axes : * -57 77 degrees QTcB Int : 418 ms Atrial fibrillation with premature ventricular or aberrantly conducted complexes Left axis deviation Left bundle branch block Abnormal ECG When compared with ECG of 05-Jun-2023 08:15, No significant change was found Confirmed by Tay Wood DO ([id number]) on 01/21/2024 3:31:04 PM Referred By: Electronically Signed By: Tay Wood DO Transcribed By: [facility] Signed By Tay Wood DO 4 1531 Normal [facility] Eosinophils Auto (Bld) [#/Vo l]Ordered By: Mick Putnam on 01-21-2024 Eosinophils (Bld) [#/Vol] N/A [facility] Eosinophils/100 WBC Auto (Bl d)Ordered By: Mick Putnam on 01-21-2024 Eosinophils/100 WBC (Bld) N/A [facility] Eosinophils/100 leukocytes i n Blood by Manual countOrdered By: Mick Putnam on 01-21-2024 Eosinophils/100 WBC (Bld) 2 % Normal 1-3 [facility] Comment on above: Performed By: #### P T #### [facility] [address] Erythrocyte distribution wid th [Ratio] by Automated countOrdered By: Mick Putnam on 01-21-2024 Erythrocyte distribution width (RBC) [Ratio] 16.7 % High 12.0-14.8 [facility] Comment on above: Performed By: #### P T #### [facility] [address] Erythrocytes [#/volume] in B lood by Automated countOrdered By: Mick Putnam on 01-21-2024 RBC (Bld) [#/Vol] 4.10 10*6/uL Normal 3.90-5.60 [facility] Comment on above: Performed By: #### P T #### [facility] [address] [place] [address] [place] Glucose [Mass/volume] in Ser um or PlasmaOrdered By: Mick Putnam on 01-21-2024 Glucose [Mass/Vol] 107 mg/dL High 70-100 [facility] Comment on above: ADA recommended refe rence rangeRandom Glucose Reference Range is dependent on time and content of last meal. Glucose of more than 200 mg/dL in a nonstressed, ambulatory subject supports the diagnosis of Diabetes Mellitus. Result Comment: [place] om Glucose Reference Range is dependent on time and content of last meal. Glucose of more than 200 mg/dL in a nonstressed, ambulatory subject supports the diagnosis of Diabetes Mellitus. ADA recommended reference range Performed By: #### P T #### [address] Hematocrit [Volume Fraction] of Blood by Automated countOrdered By: Mick Putnam on 01-21-2024 Hematocrit (Bld) [Volume fraction] 37.4 % Low 38.8-50.0 [facility] Comment on above: Performed By: #### P T #### [address] Hemoglobin [Mass/volume] in BloodOrdered By: Mick Putnam on 01-21-2024 Hemoglobin (Bld) [Mass/Vol] 12.3 g/dL Low 13.0-17.0 [facility] Comment on above: Performed By: #### P T #### [address] INR in Platelet poor plasma by Coagulation assayOrdered By: Mick Putnam on 01-21-2024 INR Coag (PPP) [Relative time] 2.5 {INR} Normal [facility] Comment on above: INR Therapeutic Rang e A) Pre- and Peroperative OAT started two weeks before surgery. NOT HIP SURGERY: 1.5 - 2.5 HIP SURGERY: 2 - 3B) Primary and secondary prevention of venous THROMBOSIS: 2 - 3C) Active venous thrombosis, pulmonary embolismand prevention of recurrent venous thrombosis: 2 - 3D) Prevention of arterial thromboembolismincluding patients with mechanical heart valves: 3 - 4.5 Result Comment: INR Therapeutic Range A) Pre- and Peroperative OAT started two weeks before surgery. NOT HIP SURGERY: 1.5 - 2.5 HIP SURGERY: 2 - 3 B) Primary and secondary prevention of venous THROMBOSIS: 2 - 3 C) Active venous thrombosis, pulmonary embolism and prevention of recurrent venous thrombosis: 2 - 3 D) Prevention of arterial thromboembolism including patients with mechanical heart valves: 3 - 4.5 PERFORMED BY: [place] [address] PATHOLOGIST ERECTING CRANE OPERATOR TERI EDMOND M.D. Performed By: #### B MP, CBC #### [facility] [address] [place] [address] Leukocytes [#/volume] correc amparo for nucleated erythrocytes in Blood by Automated counOrdered By: Mick Putnam on 01-21-2024 WBC corrected for nucl RBC Auto (Bld) [#/Vol] 7.3 10*3/uL 4.1-10.5 [facility] Leukocytes [#/volume] in Blo od by Automated countOrdered By: Mick Putnam on 01-21-2024 WBC (Bld) [#/Vol] 7.3 10*3/uL Normal 4.1-10.5 [facility] Comment on above: Performed By: #### P T #### [facility] [address] [place] [address] Lymphocytes Auto (Bld) [#/Vo l]Ordered By: Mick Putnam on 01-21-2024 Lymphocytes (Bld) [#/Vol] N/A [facility] Lymphocytes/100 WBC Auto (Bl d)Ordered By: Mick Putnam on 01-21-2024 Lymphocytes/100 WBC (Bld) N/A [facility] Lymphocytes/100 leukocytes i n Blood by Manual countOrdered By: Mick Putnam on 01-21-2024 Lymphocytes/100 WBC (Bld) 20 % Normal 18-42 [facility] Comment on above: Performed By: #### P T #### [facility] [address] [place] [address] MCH [Entitic mass] by Automa amparo countOrdered By: Mick Putnam on 01-21-2024 MCH (RBC) [Entitic mass] 30.1 pg Normal 27.5-35.2 [facility] Comment on above: Performed By: #### P T #### [facility] [address] [place] [address] MCHC Auto (RBC) [Mass/Vol]Or dered By: Mick Putnam on 01-21-2024 MCHC (RBC) [Mass/Vol] 33.0 g/dL 32.5-35.6 [facility] MCV [Entitic volume] by Auto mated countOrdered By: Mick Putnam on 01-21-2024 MCV (RBC) [Entitic vol] 91.2 fL Normal 83.5-101 [facility] Comment on above: Performed By: #### P T #### [facility] [address] [place] [address] Manual blood segmented neutr ophils/100 leukocytesOrdered By: Mick Putnam on 01-21-2024 Segmented neutrophils/100 WBC (Bld) 66 % Normal 50-70 [facility] Comment on above: Performed By: #### P T #### [facility] [address] [place] [address] Monocyte distribution width [Entitic volume] in Blood by AutomatedOrdered By: Mick Putnam on 01-21-2024 Monocyte distribution width Auto (Bld) [Entitic vol] 17.72 % 0.00-20.00 [facility] Monocytes Auto (Bld) [#/Vol] Ordered By: Mick Putnam on 01-21-2024 Monocytes (Bld) [#/Vol] N/A [facility] Monocytes/100 WBC Auto (Bld) Ordered By: Mick Putnam on 01-21-2024 Monocytes/100 WBC (Bld) N/A [facility] Monocytes/100 leukocytes in Blood by Manual countOrdered By: Mick Putnam on 01-21-2024 Monocytes/100 WBC (Bld) 10 % Normal 2-11 [facility] Comment on above: Performed By: #### P T #### [facility] [address] [place] [address] [place] Myelocytes/100 WBC Manual cn t (Bld)Ordered By: Mick Putnam on 01-21-2024 Myelocytes/100 WBC (Bld) 3 % High 0-0 [facility] Neutrophils Auto (Bld) [#/Vo l]Ordered By: Mick Putnam on 01-21-2024 Neutrophils (Bld) [#/Vol] N/A [facility] Neutrophils/100 WBC Auto (Bl d)Ordered By: Mick Putnam on 01-21-2024 Neutrophils/100 WBC (Bld) N/A [facility] No Panel InformationOrdered By: Mick Putnam on 01-21-2024 Estimated GFR (CKD-EPI) > 60.0 mL/Min [facility] Creatinine Clearance (Chem 61.06 [facility] Nucleated erythrocytes [Pres ence] in Blood by Automated countOrdered By: Mick Putnam on 01-21-2024 Nucleated RBC Auto Ql (Bld) N/A [facility] Ovalocyte detectionOrdered B y: Mick Putnam on 01-21-2024 Ovalocytes LM Ql (Bld) Slight [facility] Platelet adequacy [Presence] in Blood by Light microscopyOrdered By: Mick Putnam on 01-21-2024 Platelets LM Ql (Bld) Decreased Normal [facility] Platelet mean volume [Entiti c volume] in Blood by Automated countOrdered By: Mick Putnam on 01-21-2024 Platelet mean volume (Bld) [Entitic vol] 8.7 fL Normal 6.6-10.1 [facility] Comment on above: Performed By: #### P T #### [facility] [address] Platelet morphology finding [Identifier] in BloodOrdered By: Mick Putnam on 01-21-2024 Platelet morphology finding Nom (Bld) Normal Normal [facility] Platelets [#/volume] in Bloo d by Automated countOrdered By: Mick Putnam on 01-21-2024 Platelets (Bld) [#/Vol] 141 10*3/uL Low 150-450 [facility] [facility] Comment on above: Performed By: #### P T #### [facility] [address] [place] [address] [place] Poikilocytosis [Presence] in Blood by Light microscopyOrdered By: Mick Putnam on 01-21-2024 Poikilocytosis LM Ql (Bld) Slight [facility] Potassium [Moles/volume] in Serum or PlasmaOrdered By: Mick Putnam on 01-21-2024 Potassium [Moles/Vol] 4.1 mmol/L Normal 3.5-5.1 [facility] Comment on above: Performed By: #### P T #### [address] Prothrombin time (PT)Ordered By: Mick Putnam on 01-21-2024 PT Coag (PPP) [Time] 28.2 s High 9.0-12.9 [facility] Comment on above: A hematocrit value g reater than 55% may lead to inaccurate results in coagulation testing. Patients having hematocrit values >55% require a special collection tube for coagulation studies. Please contact the laboratory at [phone] for redraw instructions. Result Comment: A he matocrit value greater than 55% may lead to inaccurate results in coagulation testing. Patients having hematocrit values >55% require a special collection tube for coagulation studies. Please contact the laboratory at [phone] for redraw instructions. Performed By: #### B MP, CBC #### [address] RBC morphologyOrdered By: Chito Putnam on 01-21-2024 RBC morphology finding Nom (Bld) N/A [facility] Serum or plasma anion gap de terminationOrdered By: Mick Putnam on 01-21-2024 Anion gap [Moles/Vol] 10.3 mmol/L Normal 6.0-15.0 [facility] Comment on above: Performed By: #### P T #### [address] Sodium [Moles/volume] in Ser um or PlasmaOrdered By: Mick Putnam on 01-21-2024 Sodium [Moles/Vol] 136 mmol/L Normal 136-145 [facility] Comment on above: Performed By: #### P T #### [address] Troponin I High Sensitivityo n 01-21-2024 Troponin I High Sensitivity 14.8 pg/mL Normal 0.0-20.0 [facility] Comment on above: Result Comment: PERF ORMED BY: [place] [address] PATHOLOGIST ERECTING CRANE OPERATOR TERI EDMOND M.D. Performed By: #### P T #### [facility] [address] [place] [address] Troponin I High Sensitivity 13.9 pg/mL Normal 0.0-20.0 [facility] Comment on above: Result Comment: PERF ORMED BY: [place] [address] PATHOLOGIST ERECTING CRANE OPERATOR TERI EDMOND M.D. Performed By: #### P T #### [facility] [address] [place] [address] Troponin I.cardiac [Mass/vol ume] in Serum or Plasma by Detection limit <= 0.01 ng/Ordered By: Mick Putnam on 01-21-2024 Troponin I.cardiac DL <= 0.01 ng/mL [Mass/Vol] 14.8 pg/mL 0.0-20.0 [facility] Urea nitrogen [Mass/volume] in Serum or PlasmaOrdered By: Mick Putnam on 01-21-2024 Urea nitrogen [Mass/Vol] 23 mg/dL Normal 7-25 [facility] Comment on above: Performed By: #### P T #### [address] XR chest 1V portableon 01-20 XR chest 1V portable [facility] [place] [address] [place] [address] XRay Report Signed Patient: Fani Chua MR#: [id number] : 1935 Acct:[id number] Age/Sex: 88 / M ADM Date: 01/21/24 Loc: ER Room: Type: PRE ER Attending Dr: Copies to: Mick Putnam DO Ordering Provider: Mick Putnam DO Date of Service: 01/21/24 XR/XR chest 1V portable: Neuro Symptoms/Deficit SINGLE VIEW CHEST CLINICAL HISTORY: Lightheadedness nausea left arm and hand tingling. COMPARISON: Chest 06/04/2023 FINDINGS: Cardiomegaly is unchanged. No lung consolidation pneumothorax pleural effusion or free air. XR/XR chest 1V portable IMPRESSION: CARDIOMEGALY WITHOUT ACUTE PROCESS. Impression dictated by: Ivanna Panda Jr..ORachel01/21/2024 3:58 PM Dictation Location: RADIO-PC-15 Transcribed By: PWS 01/21/24 1558 Dictated By: Henry Ramirez Jr DO 01/21/24 1558 Signed By: 01/21/24 1558 Normal [facility] XR knee RT 3V - NOT FOR ER U Nat 01-06-2024 XR knee RT 3V - NOT FOR ER USE [facility] [address] [place] [address] XRay Report Signed Patient: Fani Chua MR#: [id number] : 1935 Acct:[id number] Age/Sex: 88 / M ADM Date: 01/06/24 Loc[place] [facility] Room: Type: [facility] Attending Dr: Roly Morales DO Copies to: oRly Morales DO Ordering Provider: Roly Morales DO Date of Service: 01/06/24 XR/XR knee RT 3V - NOT FOR ER USE: M17.11 - Unilateral primary osteoarthritis, right knee RIGHT KNEE - 3 views CLINICAL HISTORY: Follow-up patellar fracture COMPARISON: Right knee 12/22/2023 FINDINGS: Patellar fracture is less conspicuous suggestive of healing response. Small joint effusion. Bones are grossly demineralized. Moderate degenerative changes with lateral weightbearing joint space narrowing. Vascular calcifications. XR/XR knee RT 3V - NOT FOR ER USE IMPRESSION: HEALING PATELLAR FRACTURE. Impression dictated by: Henry Ramirez Jr., D.O.01/06/2024 4:03 PM Dictation Location: RADIO-PC-12 Transcribed By: HENRRY 01/06/24 1603 Dictated By: Henry Ramirez Jr DO 01/06/24 1601 Signed By: 01/06/24 1603 Normal [facility] INR in Platelet poor plasma by Coagulation assayOrdered By: Henry Clark on 12-29-2023 INR Coag (PPP) [Relative time] 1.9 {INR} Normal [facility] Comment on above: INR Therapeutic Rang e A) Pre- and Peroperative OAT started two weeks before surgery. NOT HIP SURGERY: 1.5 - 2.5 HIP SURGERY: 2 - 3B) Primary and secondary prevention of venous THROMBOSIS: 2 - 3C) Active venous thrombosis, pulmonary embolismand prevention of recurrent venous thrombosis: 2 - 3D) Prevention of arterial thromboembolismincluding patients with mechanical heart valves: 3 - 4.5 Result Comment: INR Therapeutic Range A) Pre- and Peroperative OAT started two weeks before surgery. NOT HIP SURGERY: 1.5 - 2.5 HIP SURGERY: 2 - 3 B) Primary and secondary prevention of venous THROMBOSIS: 2 - 3 C) Active venous thrombosis, pulmonary embolism and prevention of recurrent venous thrombosis: 2 - 3 D) Prevention of arterial thromboembolism including patients with mechanical heart valves: 3 - 4.5 PERFORMED BY: [place] [address] PATHOLOGIST ERECTING CRANE OPERATOR TERI EDMOND M.D. Performed By: #### P T #### [facility] [address] [place] [address] [facility] Prothrombin time (PT)Ordered By: Henry Eduardo on 12-29-2023 PT Coag (PPP) [Time] 21.9 s High 9.0-12.9 [facility] Comment on above: A hematocrit value g reater than 55% may lead to inaccurate results in coagulation testing. Patients having hematocrit values >55% require a special collection tube for coagulation studies. Please contact the laboratory at [phone] for redraw instructions. Result Comment: A he matocrit value greater than 55% may lead to inaccurate results in coagulation testing. Patients having hematocrit values >55% require a special collection tube for coagulation studies. Please contact the laboratory at [phone] for redraw instructions. Performed By: #### P T #### [facility] [address] [place] [address] [place] Prothrombin Time INRon 12-27 INR Coag (PPP) [Relative time] 1.9 {INR} Normal [facility] Comment on above: Result Comment: INR Therapeutic Range A) Pre- and Peroperative OAT started two weeks before surgery. NOT HIP SURGERY: 1.5 - 2.5 HIP SURGERY: 2 - 3 B) Primary and secondary prevention of venous THROMBOSIS: 2 - 3 C) Active venous thrombosis, pulmonary embolism and prevention of recurrent venous thrombosis: 2 - 3 D) Prevention of arterial thromboembolism including patients with mechanical heart valves: 3 - 4.5 PERFORMED BY: [place] [id number] PATHOLOGIST ERECTING CRANE OPERATOR TERI EDMOND M.D. Performed By: #### P T #### [address] [address] [place] PT Coag (PPP) [Time] 22.0 s High 9.0-12.9 [facility] Comment on above: Result Comment: A he matocrit value greater than 55% may lead to inaccurate results in coagulation testing. Patients having hematocrit values >55% require a special collection tube for coagulation studies. Please contact the laboratory at [phone] for redraw instructions. Performed By: #### P T #### [place] [id number] [place] Prothrombin Time INRon 12-26 INR Coag (PPP) [Relative time] 2.2 {INR} Normal [facility] Comment on above: Result Comment: INR Therapeutic Range A) Pre- and Peroperative OAT started two weeks before surgery. NOT HIP SURGERY: 1.5 - 2.5 HIP SURGERY: 2 - 3 B) Primary and secondary prevention of venous THROMBOSIS: 2 - 3 C) Active venous thrombosis, pulmonary embolism and prevention of recurrent venous thrombosis: 2 - 3 D) Prevention of arterial thromboembolism including patients with mechanical heart valves: 3 - 4.5 PERFORMED BY: [place] [id number] PATHOLOGIST ERECTING CRANE OPERATOR TERI EDMOND M.D. Performed By: #### B MP, CBC #### [address] [address] [place] PT Coag (PPP) [Time] 24.5 s High 9.0-12.9 [facility] Comment on above: Result Comment: A he matocrit value greater than 55% may lead to inaccurate results in coagulation testing. Patients having hematocrit values >55% require a special collection tube for coagulation studies. Please contact the laboratory at [phone] for redraw instructions. 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. This test has not been FDA cleared or approved. This test has been authorized by FDA under an Emergency Use Authorization (EUA). This test has been validated in accordance with the FDA's Guidance Document (Policy for Diagnostics Testing in Laboratories Certified to Perform High Complexity Testing under CLIA prior to Emergency Use Authorization for Coronavirus Disease-2019 during the Public Health Emergency) issued on September 15, 2019. This test is only authorized for the duration of time the declaration that circumstances exist justifying the authorization of the emergency use of in vitro diagnostic tests for detection of SARS-CoV-2 virus and/or diagnosis of COVID-19 infection under section 564(b)(1) of the Act, 21 U.S.C. 360bbb-3(b)(1), unless the authorization is terminated or revoked sooner. PERFORMED BY: [address] [place] [address] PATHOLOGIST ERECTING CRANE OPERATOR TERI EDMOND M.D. Performed By: #### C OVID 19 [facility] #### [place] [id number] [facility] COVID-19 Positive/NegativeOr dered By: Henry Clark on 12-26-2023 SARS-CoV-2 (COVID-19) N gene SHARRI+probe Ql (Resp) Negative Negative [facility] Comment on above: Testing for SARS-CoV -2 by RT-PCRThis test was developed and its performance characteristics determined by [employer]) and validated at the [facility]. This test has not been FDA cleared or approved. This test has been authorized by FDA under an Emergency Use Authorization (EUA). This test has been validated in accordance with the FDA's Guidance Document (Policy for Diagnostics Testing in Laboratories Certified to Perform High Complexity Testing under CLIA prior to Emergency Use Authorization for Coronavirus Disease-2019 during the Public Health Emergency) issued on September 15, 2019. This test is only authorized for the duration of time the declaration that circumstances exist justifying the authorization of the emergency use of in vitro diagnostic tests for detection of SARS-CoV-2 virus and/or diagnosis of COVID-19 infection under section 564(b)(1) of the Act, 21 U.S.C. 360bbb-3(b)(1), unless the authorization is terminated or revoked sooner. Laboratory - Microbiology an d Antimicrobial susceptibilityOrdered By: Henry Clark on 12-26-2023 SARS-CoV-2 (COVID-19) RNA SHARRI+probe Ql (Unsp spec) N/A [facility] No Panel InformationOrdered By: Henry Clark on 12-26-2023 N/A [facility] Prothrombin Time INRon 12-25 INR Coag (PPP) [Relative time] 2.2 {INR} Normal [facility] Comment on above: Order Comment: come back @8:30 pt in therapy Result Comment: INR Therapeutic Range A) Pre- and Peroperative OAT started two weeks before surgery. NOT HIP SURGERY: 1.5 - 2.5 HIP SURGERY: 2 - 3 B) Primary and secondary prevention of venous THROMBOSIS: 2 - 3 C) Active venous thrombosis, pulmonary embolism and prevention of recurrent venous thrombosis: 2 - 3 D) Prevention of arterial thromboembolism including patients with mechanical heart valves: 3 - 4.5 PERFORMED BY: [place] [address] PATHOLOGIST ERECTING CRANE OPERATOR TERI EDMOND M.D. Performed By: #### B MP, CBC #### [address] PT Coag (PPP) [Time] 24.9 s High 9.0-12.9 [facility] Comment on above: Order Comment: come back @8:30 pt in therapy Result Comment: A he matocrit value greater than 55% may lead to inaccurate results in coagulation testing. Patients having hematocrit values >55% require a special collection tube for coagulation studies. Please contact the laboratory at [phone] for redraw instructions. Performed By: #### B MP, CBC #### [address] Prothrombin Time INRon 12-24 INR Coag (PPP) [Relative time] 1.6 {INR} Normal [facility] Comment on above: Result Comment: INR Therapeutic Range A) Pre- and Peroperative OAT started two weeks before surgery. NOT HIP SURGERY: 1.5 - 2.5 HIP SURGERY: 2 - 3 B) Primary and secondary prevention of venous THROMBOSIS: 2 - 3 C) Active venous thrombosis, pulmonary embolism and prevention of recurrent venous thrombosis: 2 - 3 D) Prevention of arterial thromboembolism including patients with mechanical heart valves: 3 - 4.5 PERFORMED BY: [place] [address] PATHOLOGIST ERECTING CRANE OPERATOR TERI EDMOND M.D. Performed By: #### P T #### [address] PT Coag (PPP) [Time] 18.0 s High 9.0-12.9 [facility] Comment on above: Result Comment: A he matocrit value greater than 55% may lead to inaccurate results in coagulation testing. Patients having hematocrit values >55% require a special collection tube for coagulation studies. Please contact the laboratory at [phone] for redraw instructions. Performed By: #### P T #### [place] [id number] [place] Alanine aminotransferase [En zymatic activity/volume] in Serum or PlasmaOrdered By: Hnery Clark on 12-24-2023 ALT [Catalytic activity/Vol] 23 U/L Normal 7-52 [facility] Comment on above: Performed By: #### C OVID 19 [facility] #### [address] [address] [place] Albumin [Mass/volume] in Ser um or Plasma by Bromocresol green (BCG) dye binding methoOrdered By: Henry Eduardo on 12-24-2023 Albumin BCG dye [Mass/Vol] 3.4 g/dL Low 3.5-5.7 [facility] Alkaline phosphatase [Enzyma tic activity/volume] in Serum or PlasmaOrdered By: Henry Eduardo on 12-24-2023 ALP [Catalytic activity/Vol] 83 U/L Normal 34-104 [facility] Comment on above: Performed By: #### C [address] #### [address] Aspartate aminotransferase [ Enzymatic activity/volume] in Serum or PlasmaOrdered By: Henry Clark on 12-24-2023 AST [Catalytic activity/Vol] 25 U/L Normal 13-39 [facility] Comment on above: Performed By: #### C [address] #### [address] Automated basophil %Ordered By: Henry Clark on 12-24-2023 Basophils/100 WBC (Bld) 0.5 % Normal . [facility] Comment on above: Performed By: #### C [address] #### [address] Automated basophil countOrde red By: Henry Clark on 12-24-2023 Basophils (Bld) [#/Vol] 0.0 10*3/uL Normal 0.0-0.2 [facility] Comment on above: Result Comment: PERF ORMED BY: [place] [address] PATHOLOGIST ERECTING CRANE OPERATOR TERI EDMOND M.D. Performed By: #### C [address] #### [address] Automated blood monocyte cou ntOrdered By: Henry Clark on 12-24-2023 Monocytes (Bld) [#/Vol] 1.0 10*3/uL High 0.0-0.8 [facility] Comment on above: Performed By: #### C [address] #### [place] [address] [place] Automated eosinophil %Ordere d By: Henry Clark on 12-24-2023 Eosinophils/100 WBC (Bld) 2.6 % Normal . [facility] Comment on above: Performed By: #### C [address] #### [facility] [address] Automated eosinophil countOr dered By: Henry Clark on 12-24-2023 Eosinophils (Bld) [#/Vol] 0.2 10*3/uL Normal 0.0-0.45 [facility] Comment on above: Performed By: #### C [address] #### [address] Automated monocyte %Ordered By: Henry Clark on 12-24-2023 Monocytes/100 WBC (Bld) 14.8 % Normal . [facility] Comment on above: Performed By: #### C [address] #### [address] Automated neutrophil %Ordere d By: Henry Clark on 12-24-2023 Neutrophils/100 WBC (Bld) 66.9 % Normal . [facility] Comment on above: Performed By: #### C [address] #### [address] Bilirubin.total [Mass/volume ] in Serum or PlasmaOrdered By: Henry Clark on 12-24-2023 Bilirubin [Mass/Vol] 1.0 mg/dL Normal 0.3-1.0 [facility] Comment on above: Performed By: #### C [address] #### [address] Calcium [Mass/volume] in Ser um or PlasmaOrdered By: Henry Clark on 12-24-2023 Calcium [Mass/Vol] 8.5 mg/dL Low 8.6-10.3 [facility] Comment on above: Performed By: #### C [address] #### [address] Carbon dioxide, total [Moles /volume] in Serum or PlasmaOrdered By: Henry Clark on 12-24-2023 CO2 [Moles/Vol] 25.3 mmol/L Normal 21.0-31.0 [facility] Comment on above: Performed By: #### C [address] #### [address] Chloride [Moles/volume] in S aime or PlasmaOrdered By: Henry Clark on 12-24-2023 Chloride [Moles/Vol] 102 mmol/L Normal 98-107 [facility] Comment on above: Performed By: #### C [address] #### [address] Complete Blood Count Auto Di ffon 12-24-2023 Mean Corpuscular HGB Conc 34.0 g/dL Normal 32.5-35.6 [facility] Comment on above: Performed By: #### C [address] #### [address] NRBC% 0.2 /100{WBC} Normal 0-0.5 [facility] Comment on above: Performed By: #### C [address] #### [address] Comprehensive Metabolic Pane rui 12-24-2023 Albumin [Mass/Vol] 3.4 g/dL Low 3.5-5.7 [facility] Comment on above: Performed By: #### C [address] #### [address] Creatinine Clr Calc Pharmacy 59.23 Normal [facility] Comment on above: Performed By: #### C [address] #### [address] GFR/1.73 sq M.predicted MDRD (S/P/Bld) [Vol rate/Area] mL/min/{1.73_m2} Normal [facility] Comment on above: Performed By: #### C [address] #### [place] [address] [place] Creatinine [Mass/volume] in Serum or PlasmaOrdered By: Henry Clark on 12-24-2023 Creatinine [Mass/Vol] 0.87 mg/dL Normal 0.70-1.30 [facility] Comment on above: Performed By: #### C OVID 19 [facility] #### [facility] [address] Erythrocyte distribution wid th [Ratio] by Automated countOrdered By: Henry Clark on 12-24-2023 Erythrocyte distribution width (RBC) [Ratio] 15.1 % High 12.0-14.8 [facility] Comment on above: Performed By: #### C OVID 19 [facility] #### [facility] [address] Erythrocytes [#/volume] in B lood by Automated countOrdered By: Henry Clark on 12-24-2023 RBC (Bld) [#/Vol] 4.19 10*6/uL Normal 3.90-5.60 [facility] Comment on above: Performed By: #### C OVID 19 [facility] #### [facility] [address] Glucose [Mass/volume] in Ser um or PlasmaOrdered By: Henry Clark on 12-24-2023 Glucose [Mass/Vol] 94 mg/dL Normal 70-100 [facility] Comment on above: ADA recommended refe rence rangeRandom Glucose Reference Range is dependent on time and content of last meal. Glucose of more than 200 mg/dL in a nonstressed, ambulatory subject supports the diagnosis of Diabetes Mellitus. Result Comment: [place] Glucose Reference Range is dependent on time and content of last meal. Glucose of more than 200 mg/dL in a nonstressed, ambulatory subject supports the diagnosis of Diabetes Mellitus. ADA recommended reference range Performed By: #### C OVID 19 [facility] #### [facility] [address] Hematocrit [Volume Fraction] of Blood by Automated countOrdered By: Henry Clark on 12-24-2023 Hematocrit (Bld) [Volume fraction] 37.2 % Low 38.8-50.0 [facility] Comment on above: Performed By: #### C [address] #### [address] Hemoglobin [Mass/volume] in BloodOrdered By: Henry Clark on 12-24-2023 Hemoglobin (Bld) [Mass/Vol] 12.7 g/dL Low 13.0-17.0 [facility] Comment on above: Performed By: #### C [address] #### [address] Leukocytes [#/volume] correc amparo for nucleated erythrocytes in Blood by Automated counOrdered By: Henry Clark on 12-24-2023 WBC corrected for nucl RBC Auto (Bld) [#/Vol] 6.5 10*3/uL 4.1-10.5 [facility] Leukocytes [#/volume] in Blo od by Automated countOrdered By: Henry Clark on 12-24-2023 WBC (Bld) [#/Vol] 6.5 10*3/uL Normal 4.1-10.5 [facility] Comment on above: Performed By: #### C [address] #### [place] [address] [place] Lymphocytes [#/volume] in Bl ood by Automated countOrdered By: Henry Clark on 12-24-2023 Lymphocytes (Bld) [#/Vol] 1.0 10*3/uL Normal 1.00-4.8 [facility] Comment on above: Performed By: #### C [address] #### [place] [address] [place] Lymphocytes/100 leukocytes i n Blood by Automated countOrdered By: Henry Clark on 12-24-2023 Lymphocytes/100 WBC (Bld) 15.2 % Normal . [facility] Comment on above: Performed By: #### C [address] #### [place] [address] [place] MCH [Entitic mass] by Automa amparo countOrdered By: Henry Clark on 12-24-2023 MCH (RBC) [Entitic mass] 30.2 pg Normal 27.5-35.2 [facility] Comment on above: Performed By: #### C OVID 19 [facility] #### [address] MCHC Auto (RBC) [Mass/Vol]Or dered By: Henry Clark on 12-24-2023 MCHC (RBC) [Mass/Vol] 34.0 g/dL 32.5-35.6 [facility] MCV [Entitic volume] by Auto mated countOrdered By: Henry Clark on 12-24-2023 MCV (RBC) [Entitic vol] 88.8 fL Normal 83.5-101 [facility] Comment on above: Performed By: #### C OVID 19 [facility] #### [address] Neutrophils [#/volume] in Bl ood by Automated countOrdered By: Henry Clark on 12-24-2023 Neutrophils (Bld) [#/Vol] 4.4 10*3/uL Normal 1.8-7.7 [facility] Comment on above: Performed By: #### C OVID 19 [facility] #### [address] No Panel InformationOrdered By: Henry Clark on 12-24-2023 Estimated GFR (CKD-EPI) > 60.0 mL/Min [facility] Creatinine Clearance (Chem 59.23 [facility] > 60.0 mL/Min [facility] 59.23 [facility] Nucleated erythrocytes [Pres ence] in Blood by Automated countOrdered By: Henry Clark on 12-24-2023 Nucleated RBC Auto Ql (Bld) 0.2 /100{WBC} 0-0.5 [facility] Platelet mean volume [Entiti c volume] in Blood by Automated countOrdered By: Henry Clark on 12-24-2023 Platelet mean volume (Bld) [Entitic vol] 8.5 fL Normal 6.6-10.1 [facility] Comment on above: Performed By: #### C OVID 19 [facility] #### [address] Platelets [#/volume] in Bloo d by Automated countOrdered By: Henry Clark on 12-24-2023 Platelets (Bld) [#/Vol] 132 10*3/uL Low 150-450 [facility] Comment on above: Performed By: #### C OVID 19 [facility] #### [facility] [address] Potassium [Moles/volume] in Serum or PlasmaOrdered By: Henry Eduardo on 12-24-2023 Potassium [Moles/Vol] 4.4 mmol/L Normal 3.5-5.1 [facility] Comment on above: Performed By: #### C STRAWBERRY 19 [facility] #### [address] Prealbumin [Mass/volume] in Serum or PlasmaOrdered By: Henry Clark on 12-24-2023 Prealbumin [Mass/Vol] 10.2 mg/dL Low 17.0-34.0 [facility] Comment on above: Result Comment: PERF ORMED BY: [place] [address] PATHOLOGIST ERECTING CRANE OPERATOR TERI EDMOND M.D. Performed By: #### C STRAWBERRY 19 [facility] #### [address] Protein [Mass/volume] in Ser um or PlasmaOrdered By: Henry Clark on 12-24-2023 Protein [Mass/Vol] 6.1 g/dL Low 6.4-8.9 [facility] Comment on above: Performed By: #### C OVID 19 [facility] #### [place] [id number] [place] Prothrombin Time INRon 12-23 INR Coag (PPP) [Relative time] 1.3 {INR} Normal [facility] Comment on above: Result Comment: INR Therapeutic Range A) Pre- and Peroperative OAT started two weeks before surgery. NOT HIP SURGERY: 1.5 - 2.5 HIP SURGERY: 2 - 3 B) Primary and secondary prevention of venous THROMBOSIS: 2 - 3 C) Active venous thrombosis, pulmonary embolism and prevention of recurrent venous thrombosis: 2 - 3 D) Prevention of arterial thromboembolism including patients with mechanical heart valves: 3 - 4.5 PERFORMED BY: [place] [address] PATHOLOGIST ERECTING CRANE OPERATOR TERI EDMOND M.D. Performed By: #### C [address] #### [address] PT Coag (PPP) [Time] 14.7 s High 9.0-12.9 [facility] Comment on above: Result Comment: A he matocrit value greater than 55% may lead to inaccurate results in coagulation testing. Patients having hematocrit values >55% require a special collection tube for coagulation studies. Please contact the laboratory at [phone] for redraw instructions. Performed By: #### C [address] #### [address] Serum globulin measurement b y calculation (mass/volume)Ordered By: Henry Clark on 12-24-2023 Globulin (S) [Mass/Vol] 2.7 g/dL [facility] Comment on above: Performed By: #### C [address] #### [address] Serum or plasma albumin/glob ulin mass ratioOrdered By: Henry Clark on 12-24-2023 Albumin/Globulin [Mass ratio] 1.3 {ratio} [facility] Comment on above: Performed By: #### C [address] #### [address] Serum or plasma anion gap de terminationOrdered By: Henry Clark on 12-24-2023 Anion gap [Moles/Vol] 14.1 mmol/L Normal 6.0-15.0 [facility] Comment on above: Performed By: #### C [address] #### [address] Sodium [Moles/volume] in Ser um or PlasmaOrdered By: Henry Clark on 12-24-2023 Sodium [Moles/Vol] 137 mmol/L Normal 136-145 [facility] Comment on above: Performed By: #### C OVID 19 [facility] #### [address] Urea nitrogen [Mass/volume] in Serum or PlasmaOrdered By: Henry Clark on 12-24-2023 Urea nitrogen [Mass/Vol] 30 mg/dL High 7-25 [facility] Comment on above: Performed By: #### C OVID 19 [facility] #### [facility] [address] INR in Platelet poor plasma by Coagulation assayOrdered By: Hilario Skelton on 12-23-2023 INR Coag (PPP) [Relative time] 1.3 {INR} Normal [facility] Comment on above: INR Therapeutic Rang e A) Pre- and Peroperative OAT started two weeks before surgery. NOT HIP SURGERY: 1.5 - 2.5 HIP SURGERY: 2 - 3B) Primary and secondary prevention of venous THROMBOSIS: 2 - 3C) Active venous thrombosis, pulmonary embolismand prevention of recurrent venous thrombosis: 2 - 3D) Prevention of arterial thromboembolismincluding patients with mechanical heart valves: 3 - 4.5 Result Comment: INR Therapeutic Range A) Pre- and Peroperative OAT started two weeks before surgery. NOT HIP SURGERY: 1.5 - 2.5 HIP SURGERY: 2 - 3 B) Primary and secondary prevention of venous THROMBOSIS: 2 - 3 C) Active venous thrombosis, pulmonary embolism and prevention of recurrent venous thrombosis: 2 - 3 D) Prevention of arterial thromboembolism including patients with mechanical heart valves: 3 - 4.5 PERFORMED BY: [place] [address] PATHOLOGIST ERECTING CRANE OPERATOR TERI EDMOND M.D. Performed By: #### P T #### [facility] [address] [place] [address] Prothrombin time (PT)Ordered By: Hilario Skelton on 12-23-2023 PT Coag (PPP) [Time] 15.2 s High 9.0-12.9 [facility] Comment on above: A hematocrit value g reater than 55% may lead to inaccurate results in coagulation testing. Patients having hematocrit values >55% require a special collection tube for coagulation studies. Please contact the laboratory at [phone] for redraw instructions. Result Comment: A he matocrit value greater than 55% may lead to inaccurate results in coagulation testing. Patients having hematocrit values >55% require a special collection tube for coagulation studies. Please contact the laboratory at [phone] for redraw instructions. Performed By: #### P T #### [address] Automated basophil %Ordered By: Ashley Merritt on 12-22-2023 Basophils/100 WBC (Bld) 0.5 % Normal . [facility] Comment on above: Performed By: #### B MP, CBC #### [address] Automated basophil countOrde red By: Ashley Merritt on 12-22-2023 Basophils (Bld) [#/Vol] 0.0 10*3/uL Normal 0.0-0.2 [facility] Comment on above: Result Comment: PERF ORMED BY: [place] [address] PATHOLOGIST ERECTING CRANE OPERATOR TERI EDMOND M.D. Performed By: #### B MP, CBC #### [address] Automated blood monocyte cou ntOrdered By: Ashley Merritt on 12-22-2023 Monocytes (Bld) [#/Vol] 1.3 10*3/uL High 0.0-0.8 [facility] Comment on above: Performed By: #### B MP, CBC #### [address] Automated eosinophil %Ordere d By: Ashley Merritt on 12-22-2023 Eosinophils/100 WBC (Bld) 0.8 % Normal . [facility] Comment on above: Performed By: #### B MP, CBC #### [address] Automated eosinophil countOr dered By: Ashley Merritt on 12-22-2023 Eosinophils (Bld) [#/Vol] 0.1 10*3/uL Normal 0.0-0.45 [facility] Comment on above: Performed By: #### B MP, CBC #### [address] Automated monocyte %Ordered By: Ashley Merritt on 12-22-2023 Monocytes/100 WBC (Bld) 14.6 % Normal . [facility] Comment on above: Performed By: #### B MP, CBC #### [address] Automated neutrophil %Ordere d By: Ashley Merritt on 12-22-2023 Neutrophils/100 WBC (Bld) 69.1 % Normal . [facility] Comment on above: Performed By: #### B MP, CBC #### [address] Basic Metabolic Panelon 07 Creatinine Clr Calc Pharmacy 58.48 Normal [facility] Comment on above: Result Comment: PERF ORMED BY: [place] [address] PATHOLOGIST ERECTING CRANE OPERATOR TERI EDMOND M.D. Performed By: #### B MP, CBC #### [place] [address] [place] GFR/1.73 sq M.predicted MDRD (S/P/Bld) [Vol rate/Area] mL/min/{1.73_m2} Normal [facility] Comment on above: Performed By: #### B MP, CBC #### [place] [address] [place] Calcium [Mass/volume] in Ser um or PlasmaOrdered By: Ashley Merritt on 12-22-2023 Calcium [Mass/Vol] 9.1 mg/dL Normal 8.6-10.3 [facility] Comment on above: Performed By: #### B MP, CBC #### [place] [address] [place] Carbon dioxide, total [Moles /volume] in Serum or PlasmaOrdered By: Ashley Merritt on 12-22-2023 CO2 [Moles/Vol] 26.6 mmol/L Normal 21.0-31.0 [facility] Comment on above: Performed By: #### B MP, CBC #### [address] Chloride [Moles/volume] in S aime or PlasmaOrdered By: Ashley Merritt on 12-22-2023 Chloride [Moles/Vol] 102 mmol/L Normal 98-107 [facility] Comment on above: Performed By: #### B MP, CBC #### [address] Complete Blood Count Auto Di ffon 12-22-2023 Mean Corpuscular HGB Conc 32.9 g/dL Normal 32.5-35.6 [facility] Comment on above: Performed By: #### B MP, CBC #### [address] NRBC% 0.1 /100{WBC} Normal 0-0.5 [facility] Comment on above: Performed By: #### B MP, CBC #### [address] Creatinine [Mass/volume] in Serum or PlasmaOrdered By: Ashley Merritt on 12-22-2023 Creatinine [Mass/Vol] 0.89 mg/dL Normal 0.70-1.30 [facility] Comment on above: Performed By: #### B MP, CBC #### [address] Erythrocyte distribution wid th [Ratio] by Automated countOrdered By: Ashley Merritt on 12-22-2023 Erythrocyte distribution width (RBC) [Ratio] 15.5 % High 12.0-14.8 [facility] Comment on above: Performed By: #### B MP, CBC #### [facility] [address] [place] [address] [place] Erythrocytes [#/volume] in B lood by Automated countOrdered By: Ashley Merritt on 12-22-2023 RBC (Bld) [#/Vol] 4.63 10*6/uL Normal 3.90-5.60 [facility] Comment on above: Performed By: #### B ELIDIA, CBC #### [facility] [address] [place] [address] [place] Glucose [Mass/volume] in Ser um or PlasmaOrdered By: Ashley Merritt on 12-22-2023 Glucose [Mass/Vol] 153 mg/dL High 70-100 [facility] Comment on above: ADA recommended refe rence rangeRandom Glucose Reference Range is dependent on time and content of last meal. Glucose of more than 200 mg/dL in a nonstressed, ambulatory subject supports the diagnosis of Diabetes Mellitus. Result Comment: [place] om Glucose Reference Range is dependent on time and content of last meal. Glucose of more than 200 mg/dL in a nonstressed, ambulatory subject supports the diagnosis of Diabetes Mellitus. ADA recommended reference range Performed By: #### B ELIDIA, CBC #### [facility] [address] Hematocrit [Volume Fraction] of Blood by Automated countOrdered By: Ashley Merritt on 12-22-2023 Hematocrit (Bld) [Volume fraction] 41.3 % Normal 38.8-50.0 [facility] Comment on above: Performed By: #### B ELIDIA, CBC #### [facility] [address] Hemoglobin [Mass/volume] in BloodOrdered By: Ashley Merritt on 12-22-2023 Hemoglobin (Bld) [Mass/Vol] 13.6 g/dL Normal 13.0-17.0 [facility] Comment on above: Performed By: #### B ELIDIA, CBC #### [facility] [address] [place] [address] [place] Leukocytes [#/volume] correc amparo for nucleated erythrocytes in Blood by Automated counOrdered By: Ashley Merritt on 12-22-2023 WBC corrected for nucl RBC Auto (Bld) [#/Vol] 9.0 10*3/uL 4.1-10.5 [facility] Leukocytes [#/volume] in Blo od by Automated countOrdered By: Ashley Merritt on 12-22-2023 WBC (Bld) [#/Vol] 9.0 10*3/uL Normal 4.1-10.5 [facility] Comment on above: Performed By: #### B MP, CBC #### [facility] [address] [place] [address] Lymphocytes [#/volume] in Bl ood by Automated countOrdered By: Ashley Merritt on 12-22-2023 Lymphocytes (Bld) [#/Vol] 1.4 10*3/uL Normal 1.00-4.8 [facility] Comment on above: Performed By: #### B MP, CBC #### [address] Lymphocytes/100 leukocytes i n Blood by Automated countOrdered By: Ashley Merritt on 12-22-2023 Lymphocytes/100 WBC (Bld) 15.0 % Normal . [facility] Comment on above: Performed By: #### B MP, CBC #### [facility] [address] [place] [address] MCH [Entitic mass] by Automa amparo countOrdered By: Ashley Merritt on 12-22-2023 MCH (RBC) [Entitic mass] 29.3 pg Normal 27.5-35.2 [facility] Comment on above: Performed By: #### B MP, CBC #### [facility] [address] [place] [address] MCHC Auto (RBC) [Mass/Vol]Or dered By: Ashley Merritt on 12-22-2023 MCHC (RBC) [Mass/Vol] 32.9 g/dL 32.5-35.6 [facility] MCV [Entitic volume] by Auto mated countOrdered By: Ashley Merritt on 12-22-2023 MCV (RBC) [Entitic vol] 89.2 fL Normal 83.5-101 [facility] Comment on above: Performed By: #### B MP, CBC #### [facility] [address] Neutrophils [#/volume] in Bl ood by Automated countOrdered By: Ashley Merritt on 12-22-2023 Neutrophils (Bld) [#/Vol] 6.2 10*3/uL Normal 1.8-7.7 [facility] Comment on above: Performed By: #### B MP, CBC #### [address] No Panel InformationOrdered By: Ashley Merritt on 12-22-2023 Estimated GFR (CKD-EPI) > 60.0 mL/Min [facility] Creatinine Clearance (Chem 58.48 [facility] > 60.0 mL/Min [facility] 58.48 [facility] Nucleated erythrocytes [Pres ence] in Blood by Automated countOrdered By: Ashley Merritt on 12-22-2023 Nucleated RBC Auto Ql (Bld) 0.1 /100{WBC} 0-0.5 [facility] Platelet mean volume [Entiti c volume] in Blood by Automated countOrdered By: Ashley Merritt on 12-22-2023 Platelet mean volume (Bld) [Entitic vol] 8.4 fL Normal 6.6-10.1 [facility] Comment on above: Performed By: #### B MP, CBC #### [address] Platelets [#/volume] in Bloo d by Automated countOrdered By: Ashley Merritt on 12-22-2023 Platelets (Bld) [#/Vol] 145 10*3/uL Low 150-450 [facility] Comment on above: Performed By: #### B MP, CBC #### [address] Potassium [Moles/volume] in Serum or PlasmaOrdered By: Ashley Merritt on 12-22-2023 Potassium [Moles/Vol] 3.8 mmol/L Normal 3.5-5.1 [facility] Comment on above: Performed By: #### B MP, CBC #### [address] Prothrombin Time INRon 12-21 INR Coag (PPP) [Relative time] 1.4 {INR} Normal [facility] Comment on above: Result Comment: INR Therapeutic Range A) Pre- and Peroperative OAT started two weeks before surgery. NOT HIP SURGERY: 1.5 - 2.5 HIP SURGERY: 2 - 3 B) Primary and secondary prevention of venous THROMBOSIS: 2 - 3 C) Active venous thrombosis, pulmonary embolism and prevention of recurrent venous thrombosis: 2 - 3 D) Prevention of arterial thromboembolism including patients with mechanical heart valves: 3 - 4.5 PERFORMED BY: [place] [address] PATHOLOGIST ERECTING CRANE OPERATOR TERI EDMOND M.D. Performed By: #### B ELIDIA, CBC #### [address] PT Coag (PPP) [Time] 16.3 s High 9.0-12.9 [facility] Comment on above: Result Comment: A he matocrit value greater than 55% may lead to inaccurate results in coagulation testing. Patients having hematocrit values >55% require a special collection tube for coagulation studies. Please contact the laboratory at [phone] for redraw instructions. Performed By: #### B ELIDIA, CBC #### [address] Serum or plasma anion gap de terminationOrdered By: Ashley Merritt on 12-22-2023 Anion gap [Moles/Vol] 12.2 mmol/L Normal 6.0-15.0 [facility] Comment on above: Performed By: #### B MP, CBC #### [address] Sodium [Moles/volume] in Ser um or PlasmaOrdered By: Ashley Merritt on 12-22-2023 Sodium [Moles/Vol] 137 mmol/L Normal 136-145 [facility] Comment on above: Performed By: #### B MP, CBC #### [place] [address] [place] Urea nitrogen [Mass/volume] in Serum or PlasmaOrdered By: Ashley Merritt on 12-22-2023 Urea nitrogen [Mass/Vol] 25 mg/dL Normal 01-06 [facility] Comment on above: Performed By: #### B MP, CBC #### [address] XR knee RT 2Von 12-22-2023 XR knee RT 2V [facility] [place] [address] [place] [address] XRay Report Signed Patient: Fani Chua MR#: [id number] : 1935 Acct:[id number] Age/Sex: 88 / M ADM Date: 12/21/23 Loc: Room: [address] [place] [address] Type: ADM INOo Attending Dr: Ashley Merritt MD Copies to: DO Ashley Lowe MD Ordering Provider: Roly Morales DO Date of Service: 12/22/23 XR/XR knee RT 2V: patella fracture RIGHT KNEE - 2 views COMPARISON: 12/20/2023 CLINICAL DATA: Follow-up patellar fracture AP and lateral views were obtained. There is osteopenia. There is redemonstration of transverse fracture through the mid pole of the patella. There is no significant displacement or change from the prior. No new fracture or dislocation is identified. There is mild narrowing at the lateral tibiofemoral joint compartment. There is minor marginal spurring. There is still a knee effusion. There is atherosclerotic disease. XR/XR knee RT 2V IMPRESSION: STABLE PATELLAR FRACTURE. OSTEOPENIA AND DEGENERATIVE CHANGES. KNEE EFFUSION. Impression dictated by: Cyn Llamas M.D.12/22/2023 11:39 AM Dictation Location: [place] [address] Transcribed By: HENRRY 12/22/23 1139 Dictated By: Cyn Llamas MD 12/22/23 1135 Signed By: 12/22/23 1139 Normal [facility] Activated partial thrombopla stin time (aPTT) in platelet poor plasma by coagulation aOrdered By: Rubio Crooks on 12-20-2023 aPTT Coag (PPP) [Time] 36.5 s 25.1-36.5 [facility] Comment on above: A hematocrit value g reater than 55% may lead to inaccurate results in coagulation testing. Patients having hematocrit values >55% require a special collection tube for coagulation studies. Please contact the laboratory at [phone] for redraw instructions. Alanine aminotransferase [En zymatic activity/volume] in Serum or PlasmaOrdered By: Rubio Crooks on 12-20-2023 ALT [Catalytic activity/Vol] 41 U/L Normal 7-52 [facility] Comment on above: Performed By: #### P P, MG, CMP, DIFF CBC #### [facility] [address] [place], [place] [id number] [place] Albumin [Mass/volume] in Ser um or Plasma by Bromocresol green (BCG) dye binding methoOrdered By: Rubio Crooks on 12-20-2023 Albumin BCG dye [Mass/Vol] 4.2 g/dL 3.5-5.7 [facility] Alkaline phosphatase [Enzyma tic activity/volume] in Serum or PlasmaOrdered By: Rubio Crooks on 12-20-2023 ALP [Catalytic activity/Vol] 87 U/L Normal 34-104 [facility] Comment on above: Performed By: #### P P, MG, CMP, DIFF CBC #### [facility] [address] [place] [address] [place] Anisocytosis [Presence] in B lood by Light microscopyOrdered By: Rubio Crooks on 12-20-2023 Anisocytosis Ql (Bld) Slight Normal [facility] Comment on above: Performed By: #### P P, MG, CMP, DIFF CBC ####[facility] [id number] [place] [address] [place] Aspartate aminotransferase [ Enzymatic activity/volume] in Serum or PlasmaOrdered By: Rubio Crooks on 12-20-2023 AST [Catalytic activity/Vol] 38 U/L Normal 13-39 [facility] Comment on above: Performed By: #### P P, MG, CMP, DIFF CBC #### [facility] [address] [place], [place] [id number] [place] Bacteria [Presence] in Urine by AutomatedOrdered By: Rubio Crooks on 12-20-2023 Bacteria Auto Ql (U) None seen [HPF] None Seen [facility] Basophils Auto (Bld) [#/Vol] Ordered By: Rubio Crooks on 12-20-2023 Basophils (Bld) [#/Vol] N/A [facility] Basophils/100 WBC Auto (Bld) Ordered By: Rubio Crooks on 12-20-2023 Basophils/100 WBC (Bld) N/A [facility] Bilirubin Test strip Ql (U)O rdered By: Rubio Crooks on 12-20-2023 Bilirubin Ql (U) Negative Negative [facility] Bilirubin.total [Mass/volume ] in Serum or PlasmaOrdered By: Rubio Crooks on 12-20-2023 Bilirubin [Mass/Vol] 0.9 mg/dL Normal 0.3-1.0 [facility] Comment on above: Performed By: #### P P, MG, CMP, DIFF CBC #### [place] [address] [place] Jihan cells [Presence] in Blo od by Light microscopyOrdered By: Rubio Crooks on 12-20-2023 Jihan cells LM Ql (Bld) [facility] pelvis w conon CT abdomen pelvis w con [facility] [place] [address] [place] [address] CT Scan Report Signed Patient: Fani Chua MR#: [id number] : 1935 Acct:[id number] Age/Sex: 88 / M ADM Date: 12/20/23 Loc: Room: 4K3459-2 Type: ADM INOo Attending Dr: Betty Buchanan MD Copies to: MD Rubio Owen Jr, MD Ordering Provider: Rubio Crooks Jr, MD Date of Service: 12/20/23 CT/CT chest w con: fall, R chest/rib pain ([id number]) CT/CT abdomen pelvis w con: fall, R side rib pain CT CHEST, ABDOMEN AND PELVIS WITH INTRAVENOUS CONTRAST: CLINICAL HISTORY: Patient fell in the driveway. Right chest and rib pain COMPARISON: CT abdomen 01/13/2023 TECHNIQUE: Spiral images were obtained through the chest, abdomen and pelvis following intravenous administration of 90 mL of Isovue-300. Images of the chest were reviewed using both narrow and wide window settings. This CT exam was performed using one or more following dose reduction techniques: Automated exposure control, adjustment of the mA and/or kV according to patient size, or use of iterative reconstruction technique. The heart is enlarged. There is no pericardial effusion. A prosthetic aortic valve is noted. There is coronary artery disease. Mild plaque is present at the aortic arch and proximal great vessels. The ascending aorta is borderline aneurysmal measuring present a 4 cm in diameter. There is no dissection. There are few small benign-appearing lymph nodes. There is no mediastinal hematoma. There is obstructive lung disease with airspace lucencies. There is minor atelectasis and/or scarring. There are no additional consolidation, pleural effusion or pneumothorax. There is a calcified right lower lobe granuloma and a tiny noncalcified nodule at the lateral left lower lobe which were also seen previously. No acute displaced rib fractures are identified. No vertebral compression fractures are seen. There is minor endplate spurring. There is possible fatty infiltration of the liver. There are calcified hepatic and splenic granulomas. No visceral injury is identified. There are small gallstones. The pancreas is atrophic. No adrenal nodularity is seen. There are symmetric renal nephrograms, without hydronephrosis. There are multiple renal cysts. There is also cortical scarring, greater on the left. There is an ectatic aorta with prominent atherosclerotic disease. There is also plaque at the iliac and some of the visceral arteries. No enlarged lymph nodes or ascites are seen. There is no dilated small bowel. There is air and stool throughout the colon. Scattered colonic diverticula are visualized. There is slight dextroscoliotic curvature. There is continued mild anterolisthesis of L4 on L5. There are no acute compression fractures. There is some degenerative change at the lower facets. Images through the pelvis are slightly limited by streak artifact from bilateral hip prostheses. There is no dilated small bowel. No appendiceal inflammation is seen. There is stool at the distal colon. There are additional diverticula, without associated active inflammation. The bladder and prostate are difficult to fully evaluate. No ascites is seen. There is additional atherosclerotic disease. There is minor degenerative change at the SI joints. No obvious acute pelvic fracture is seen. CT/CT chest w con IMPRESSION: CARDIOMEGALY AND BORDERLINE ANEURYSMAL ASCENDING AORTA. OBSTRUCTIVE LUNG DISEASE. GRANULOMATOUS CHANGES. FATTY LIVER. CHOLELITHIASIS. RENAL CYSTS AND CORTICAL SCARRING. DIVERTICULOSIS. NO ACUTE INTRATHORACIC, ABDOMINAL OR PELVIC TRAUMA. Impression dictated by: Cyn Llamas M.D.12/20/2023 10:43 AM Dictation Location: [place] [id number] Transcribed By: [facility] 12/20/23 1043 Dictated By: Cyn Llamas MD 12/20/23 1033 Signed By: 12/20/23 1043 Normal [facility] CT cervical spine wo conon 0 12-20-2023 CT cervical spine wo con [facility] [place] [address] [place] [address] CT Scan Report Signed Patient: Fani Chua MR#: [id number] : 1935 Acct:[id number] Age/Sex: 88 / M ADM Date: 12/20/23 Loc: Room: [address] [place] [address] Type: ADM INOo Attending Dr: Betty Buchanan MD Copies to: MD Rubio Owen Jr, MD Ordering Provider: Rubio Crooks Jr, MD Date of Service: 12/20/23 CT/CT head/brain wo con: fall, head injury, warfarin ([id number]) CT/CT cervical spine wo con: fall, head injury CLINICAL DATA: Patient tripped while picking a dog in the dark and hit head on car. Blood thinners. CT BRAIN WITHOUT CONTRAST: COMPARISON: 06/04/2023 TECHNIQUE: Contiguous axial unenhanced images were obtained through the brain. This CT exam was performed using one or more following dose reduction techniques: Automated exposure control, adjustment of the mA and/or kV according to patient size, or use of iterative reconstruction technique. FINDINGS: There is generalized atrophy. The ventricles are within normal limits for size and position. Minor microvascular changes are noted. There are no additional areas of abnormal attenuation. There is no hemorrhage, mass effect or extra-axial collections. The calvarium is intact. The left maxillary sinus is only partially imaged though there is mucosal thickening and a small amount of fluid There is subcutaneous hematoma in left frontal region. CT/CT head/brain wo con IMPRESSION: ATROPHY AND SMALL VESSEL ISCHEMIC CHANGES. NO ACUTE INTRACRANIAL TRAUMA. CT CERVICAL SPINE WITHOUT CONTRAST WITH 3D RECONSTRUCTIONS: COMPARISON: T 05/04/2021 TECHNIQUE: Spiral axial unenhanced images were obtained through the cervical spine. Sagittal, coronal and 3D volume-rendered reconstructions were also reviewed. This CT exam was performed using one or more following dose reduction techniques: Automated exposure control, adjustment of the mA and/or kV according to patient size, or use of iterative reconstruction technique. FINDINGS: There is slight dextroscoliotic curvature and reversal of the normal cervical lordosis. There is minimal anterolisthesis of C3 on C4, C4 on C5 and C7 on T1. There is continued disc space narrowing at C4-5 through C5-6. There is endplate sclerosis and spurring. There is facet disease. The atlantoaxial relationship is maintained and there is similar facet disease, greater on the left. No prevertebral soft tissue swelling is seen. There is carotid artery plaque. The upper imaged lungs show obstructive disease. IMPRESSION: DEGENERATIVE CHANGES. NO ACUTE BONY INJURY. Impression dictated by: Cyn Llamas M.D.12/20/2023 10:28 AM Dictation Location: [place] [address] Transcribed By: [facility] 12/20/23 1028 Dictated By: Cyn Llamas MD 12/20/23 1021 Signed By: 12/20/23 1028 Normal [facility] CT knee RT wo conon 12-20-19 CT knee RT wo con [facility] [place] [address] [place] [address] CT Scan Report Signed Patient: Fani Chua MR#: [id number] : 1935 Acct:[id number] Age/Sex: 88 / M ADM Date: 12/20/23 Loc: Room: [address] [place] [address] Type: ADM INOo Attending Dr: Betty Buchanan MD Copies to: MD Rubio Owen Jr, MD Ordering Provider: Rubio Crooks Jr, MD Date of Service: 12/20/23 CT/CT knee RT wo con: POSSIBLE FX CT RIGHT KNEE WITHOUT CONTRAST WITH 3-D RECONSTRUCTIONS CLINICAL DATA: Patient fell and has the patellar fracture on plain film. COMPARISON: Plain films 12/20/2023 Spiral images were obtained through the knee without contrast. Sagittal, coronal and 3-D volume rendered reconstructions were reviewed. This CT exam was performed using one or more following dose reduction techniques: Automated exposure control, adjustment of the mA and/or kV according to patient size, or use of iterative reconstruction technique. There is osteopenia. There is redemonstration of a transverse fracture at the mid to lower pole of the patella. There is mild comminution however there are no significant displacement. No additional acute fractures are identified. No dislocation is seen. There is lateral tibiofemoral joint compartment narrowing. There is minor subchondral sclerosis and cystic change at the lateral tibial plateau. Minor marginal spurring is seen. There is suspected chondrocalcinosis involving the menisci. There is a large knee effusion with fat/fluid level. There is mild subcutaneous edema. There is atherosclerotic disease. CT/CT knee RT wo con IMPRESSION: NONDISPLACED, COMMINUTED PATELLAR FRACTURE. OSTEOPENIA AND DEGENERATIVE CHANGES. LARGE KNEE EFFUSION. Impression dictated by: Cyn Llamas M.D.12/20/2023 10:48 AM Dictation Location: [place] [address] Transcribed By: [facility] 12/20/23 1048 Dictated By: Cyn Llamas MD 12/20/23 1043 Signed By: 12/20/23 1048 Normal [facility] Calcium [Mass/volume] in Ser um or PlasmaOrdered By: Rubio Crooks on 12-20-2023 Calcium [Mass/Vol] 9.8 mg/dL Normal 8.6-10.3 [facility] Comment on above: Performed By: #### P P, MG, CMP, DIFF CBC #### [facility] [address] [place] [address] [place] Carbon dioxide, total [Moles /volume] in Serum or PlasmaOrdered By: Rubio Crooks on 12-20-2023 CO2 [Moles/Vol] 27.0 mmol/L Normal 21.0-31.0 [facility] Comment on above: Performed By: #### P P, MG, CMP, DIFF CBC #### [facility] [address] [place] [id number] [place] Chloride [Moles/volume] in S aime or PlasmaOrdered By: Rubio Crooks on 12-20-2023 Chloride [Moles/Vol] 106 mmol/L Normal 98-107 [facility] Comment on above: Performed By: #### P P, MG, CMP, DIFF CBC #### [place] [id number] [facility] Coagulation Profileon 2023 aPTT Coag (Bld) [Time] 36.5 s Normal 25.1-36.5 [facility] Comment on above: Result Comment: A he matocrit value greater than 55% may lead to inaccurate results in coagulation testing. Patients having hematocrit values >55% require a special collection tube for coagulation studies. Please contact the laboratory at [phone] for redraw instructions. PERFORMED BY: [place] [address] PATHOLOGIST ERECTING CRANE OPERATOR TERI EDMOND M.D. Performed By: #### P P, MG, CMP, DIFF CBC #### [address] Color of Urine by AutoOrdere d By: Rubio Crooks on 12-20-2023 Color (U) Light-yellow Normal Yellow [facility] Comment on above: Order Comment: Name Collection Type:: Clean-Voided Midstream Performed By: #### B MP, CBC #### [address] Comprehensive Metabolic Pane rui 12-20-2023 Albumin [Mass/Vol] 4.2 g/dL Normal 3.5-5.7 [facility] Comment on above: Performed By: #### P P, MG, CMP, DIFF CBC #### [address] Creatinine Clr Calc Pharmacy 51.02 Normal [facility] Comment on above: Result Comment: PERF ORMED BY: [place] [address] PATHOLOGIST ERECTING CRANE OPERATOR TERI EDMOND M.D. Performed By: #### P P, MG, CMP, DIFF CBC #### [address] GFR/1.73 sq M.predicted MDRD (S/P/Bld) [Vol rate/Area] mL/min/{1.73_m2} Normal [facility] Comment on above: Performed By: #### P P, MG, CMP, DIFF CBC #### [address] Creatinine [Mass/volume] in Serum or PlasmaOrdered By: Rubio Crooks on 12-20-2023 Creatinine [Mass/Vol] 1.02 mg/dL Normal 0.70-1.30 [facility] Comment on above: Performed By: #### P P, MG, CMP, DIFF CBC #### [facility] [address] [place] [address] Diff and CBCon 12-20-2023 Crenated RBC Slight Normal [facility] Comment on above: Performed By: #### P P, MG, CMP, DIFF CBC ####[address] Mean Corpuscular HGB Conc 33.4 g/dL Normal 32.5-35.6 [facility] Comment on above: Performed By: #### P P, MG, CMP, DIFF CBC ####[address] Monocytes/100 WBC (Bld) 17.52 % Normal 0.00-20.00 [facility] Comment on above: Performed By: #### P P, MG, CMP, DIFF CBC ####[address] Myelocytes 1 % High 0-0 [facility] Comment on above: Performed By: #### P P, MG, CMP, DIFF CBC ####[address] Ovalocytes Slight Normal [facility] Comment on above: Performed By: #### P P, MG, CMP, DIFF CBC ####[address] Platelet Estimate Normal Normal Normal [facility] Comment on above: Performed By: #### P P, MG, CMP, DIFF CBC ####[facility] [place] [address] Platelet Morphology Normal Normal Normal [facility] Comment on above: Result Comment: PERF ORMED BY: [place] [address] PATHOLOGIST ERECTING CRANE OPERATOR TERI EDMOND M.D. Performed By: #### P P, MG, CMP, DIFF CBC ####[address] Poikilocytosis Slight Normal [facility] Comment on above: Performed By: #### P P, MG, CMP, DIFF CBC ####[address] Polychromasia Slight Normal [facility] Comment on above: Performed By: #### P P, MG, CMP, DIFF CBC ####[address] Dipstick and Microscopicon 0 12-20-2023 Bacteria,Urine None Seen Normal None Seen [facility] Comment on above: Order Comment: Name Collection Type:: Clean-Voided Midstream Performed By: #### B MP, CBC #### [place] [address] [place] Bilirubin,Urine Negative Normal Negative [facility] Comment on above: Order Comment: Name Collection Type:: Clean-Voided Midstream Performed By: #### B MP, CBC #### [facility] [address] [place] [address] [place] Glucose Ql (U) Normal Normal Normal [facility] Comment on above: Order Comment: Name Collection Type:: Clean-Voided Midstream Performed By: #### B MP, CBC #### [facility] [address] [place] [address] [place] Hyaline Casts,Urine None Normal 0-8 [facility] Comment on above: Order Comment: Name Collection Type:: Clean-Voided Midstream Result Comment: PERF ORMED BY: [place] [address] PATHOLOGIST ERECTING CRANE OPERATOR TERI EDMOND M.D. Performed By: #### B MP, CBC #### [place] [address] [place] Nitrite,Urine Negative Normal Negative [facility] Comment on above: Order Comment: Name Collection Type:: Clean-Voided Midstream Performed By: #### B MP, CBC #### [address] Occult Blood,Urine Negative Normal Negative [facility] Comment on above: Order Comment: Name Collection Type:: Clean-Voided Midstream Result Comment: PERF ORMED BY: [place] [address] PATHOLOGIST ERECTING CRANE OPERATOR TERI EDMOND M.D. Performed By: #### B MP, CBC #### [place] [address] [place] Protein,Urine Trace High Negative [facility] Comment on above: Order Comment: Name Collection Type:: Clean-Voided Midstream Performed By: #### B MP, CBC #### [place] [address] [place] RBC,Urine 1-2 Normal 0-4 [facility] Comment on above: Order Comment: Name Collection Type:: Clean-Voided Midstream Performed By: #### B MP, CBC #### [place] [address] [place] Specificy [place],Urine 1.019 Normal 1.001-1.03 0 [facility] Comment on above: Order Comment: Name Collection Type:: Clean-Voided Midstream Performed By: #### B MP, CBC #### [place] [address] [place] Urobilinogen,Urine Normal Normal Normal [facility] Comment on above: Order Comment: Name Collection Type:: Clean-Voided Midstream Performed By: #### B MP, CBC #### [place] [address] [place] WBC,Urine 1-2 Normal 0-4 [facility] Comment on above: Order Comment: Name Collection Type:: Clean-Voided Midstream Performed By: #### B MP, CBC #### [facility] [address] Eosinophils Auto (Bld) [#/Vo l]Ordered By: Rubio Crooks on 12-20-2023 Eosinophils (Bld) [#/Vol] N/A [facility] Eosinophils/100 WBC Auto (Bl d)Ordered By: Rubio Crooks on 12-20-2023 Eosinophils/100 WBC (Bld) N/A [facility] Eosinophils/100 leukocytes i n Blood by Manual countOrdered By: Rubio Crooks on 12-20-2023 Eosinophils/100 WBC (Bld) 1 % Normal 1-3 [facility] Comment on above: Performed By: #### P P, MG, CMP, DIFF CBC ####[facility] [id number] Epithelial cells.squamous [# /area] in Urine sediment by Automated countOrdered By: Rubio Crooks on 12-20-2023 Epithelial cells.squamous Auto (Urine sed) [#/Area] N/A [facility] Erythrocyte distribution wid th [Ratio] by Automated countOrdered By: Rubio Crooks on 12-20-2023 Erythrocyte distribution width (RBC) [Ratio] 15.6 % High 12.0-14.8 [facility] Comment on above: Performed By: #### P P, MG, CMP, DIFF CBC ####[facility] [id number] [address] Erythrocytes [#/area] in Uri ne sediment by Automated countOrdered By: Rubio Crooks on 12-20-2023 RBC Auto (Urine sed) [#/Area] 1-2 [HPF] 0-4 [facility] Erythrocytes [#/volume] in B lood by Automated countOrdered By: Rubio Crooks on 12-20-2023 RBC (Bld) [#/Vol] 4.29 10*6/uL Normal 3.90-5.60 [facility] Comment on above: Performed By: #### P P, MG, CMP, DIFF CBC ####[facility] Glucose [Mass/volume] in Ser um or PlasmaOrdered By: Rubio Crooks on 12-20-2023 Glucose [Mass/Vol] 112 mg/dL High 70-100 [facility] Comment on above: ADA recommended refe rence rangeRandom Glucose Reference Range is dependent on time and content of last meal. Glucose of more than 200 mg/dL in a nonstressed, ambulatory subject supports the diagnosis of Diabetes Mellitus. Result Comment: [place] om Glucose Reference Range is dependent on time and content of last meal. Glucose of more than 200 mg/dL in a nonstressed, ambulatory subject supports the diagnosis of Diabetes Mellitus. ADA recommended reference range Performed By: #### P P, MG, CMP, DIFF CBC #### [facility] [address] Glucose [Mass/volume] in Uri ne by Test stripOrdered By: Rubio Crooks on 12-20-2023 Glucose Test strip (U) [Mass/Vol] Normal mg/dL Normal [facility] Hematocrit [Volume Fraction] of Blood by Automated countOrdered By: Rubio Crooks on 12-20-2023 Hematocrit (Bld) [Volume fraction] 38.4 % Low 38.8-50.0 [facility] Comment on above: Performed By: #### P P, MG, CMP, DIFF CBC ####[address] Hemoglobin Test strip Ql (U) Ordered By: Rubio Crooks on 12-20-2023 Hemoglobin Ql (U) Negative Negative [facility] Hemoglobin [Mass/volume] in BloodOrdered By: Rubio Crooks on 12-20-2023 Hemoglobin (Bld) [Mass/Vol] 12.8 g/dL Low 13.0-17.0 [facility] Comment on above: Performed By: #### P P, MG, CMP, DIFF CBC ####[facility] [place] [address] [place] Hyaline casts [#/area] in Ur ine sediment by Automated countOrdered By: Rubio Crooks on 07-07-2024 Hyaline casts Auto (Urine sed) [#/Area] None [LPF] 0-8 [facility] INR in Platelet poor plasma by Coagulation assayOrdered By: Rubio Crooks on 12-20-2023 INR Coag (PPP) [Relative time] 1.8 {INR} Normal [facility] Comment on above: INR Therapeutic Rang e A) Pre- and Peroperative OAT started two weeks before surgery. NOT HIP SURGERY: 1.5 - 2.5 HIP SURGERY: 2 - 3B) Primary and secondary prevention of venous THROMBOSIS: 2 - 3C) Active venous thrombosis, pulmonary embolismand prevention of recurrent venous thrombosis: 2 - 3D) Prevention of arterial thromboembolismincluding patients with mechanical heart valves: 3 - 4.5 Result Comment: INR Therapeutic Range A) Pre- and Peroperative OAT started two weeks before surgery. NOT HIP SURGERY: 1.5 - 2.5 HIP SURGERY: 2 - 3 B) Primary and secondary prevention of venous THROMBOSIS: 2 - 3 C) Active venous thrombosis, pulmonary embolism and prevention of recurrent venous thrombosis: 2 - 3 D) Prevention of arterial thromboembolism including patients with mechanical heart valves: 3 - 4.5 Performed By: #### P P, MG, CMP, DIFF CBC #### [facility] [address] [place], [place] [id number] [place] Ketones [Presence] in Urine by Test stripOrdered By: Rubio Crooks on 12-20-2023 Ketones Ql (U) Negative Normal Negative [facility] Comment on above: Order Comment: Name Collection Type:: Clean-Voided Midstream Performed By: #### B MP, CBC #### [facility] [address] [place] [address] [place] Leukocyte esterase [Presence ] in Urine by Test stripOrdered By: Rubio Crooks on 12-20-2023 Leukocyte esterase Test strip Ql (U) Negative Normal Negative [facility] Comment on above: Order Comment: Name Collection Type:: Clean-Voided Midstream Performed By: #### B MP, CBC #### [place] [address] [place] Leukocytes [#/area] in Urine sediment by Automated countOrdered By: Rubio Crooks on 12-20-2023 WBC Auto (Urine sed) [#/Area] 1-2 [HPF] 0-4 [facility] Leukocytes [#/volume] correc amparo for nucleated erythrocytes in Blood by Automated counOrdered By: Rubio Crooks on 12-20-2023 WBC corrected for nucl RBC Auto (Bld) [#/Vol] 7.1 10*3/uL 4.1-10.5 [facility] Leukocytes [#/volume] in Blo od by Automated countOrdered By: Rubio Crooks on 12-20-2023 WBC (Bld) [#/Vol] 7.1 10*3/uL Normal 4.1-10.5 [facility] Comment on above: Performed By: #### P P, MG, CMP, DIFF CBC ####[facility] [id number] Lymphocytes Auto (Bld) [#/Vo l]Ordered By: Rubio Crooks on 12-20-2023 Lymphocytes (Bld) [#/Vol] N/A [facility] Lymphocytes/100 WBC Auto (Bl d)Ordered By: Rubio Crooks on 12-20-2023 Lymphocytes/100 WBC (Bld) N/A [facility] Lymphocytes/100 leukocytes i n Blood by Manual countOrdered By: Rubio Crooks on 12-20-2023 Lymphocytes/100 WBC (Bld) 8 % Low 18-42 [facility] Comment on above: Performed By: #### P P, MG, CMP, DIFF CBC ####[facility] [id number] [address] MCH [Entitic mass] by Automa amparo countOrdered By: Rubio Crooks on 12-20-2023 MCH (RBC) [Entitic mass] 29.8 pg Normal 27.5-35.2 [facility] Comment on above: Performed By: #### P P, MG, CMP, DIFF CBC ####[facility] [id number] [place] [address] MCHC Auto (RBC) [Mass/Vol]Or dered By: Rubio Crooks on 12-20-2023 MCHC (RBC) [Mass/Vol] 33.4 g/dL 32.5-35.6 [facility] MCV [Entitic volume] by Auto mated countOrdered By: Rubio Crooks on 12-20-2023 MCV (RBC) [Entitic vol] 89.3 fL Normal 83.5-101 [facility] Comment on above: Performed By: #### P P, MG, CMP, DIFF CBC ####[address] Magnesium [Mass/volume] in S aime or PlasmaOrdered By: Rubio Crooks on 12-20-2023 Magnesium [Mass/Vol] 1.7 mg/dL Low 1.9-2.7 [facility] Comment on above: Result Comment: PERF ORMED BY: [facility] [address] [place] [address] PATHOLOGIST ERECTING CRANE OPERATOR TERI EDMOND M.D. Performed By: #### P P, MG, CMP, DIFF CBC ####[address] Manual blood segmented neutr ophils/100 leukocytesOrdered By: Rubio Crooks on 12-20-2023 Segmented neutrophils/100 WBC (Bld) 84 % High 50-70 [facility] Comment on above: Performed By: #### P P, MG, CMP, DIFF CBC ####[address] Monocyte distribution width [Entitic volume] in Blood by AutomatedOrdered By: Rubio Crooks on 12-20-2023 Monocyte distribution width Auto (Bld) [Entitic vol] 17.52 % 0.00-20.00 [facility] Monocytes Auto (Bld) [#/Vol] Ordered By: Rubio Crooks on 12-20-2023 Monocytes (Bld) [#/Vol] N/A [facility] Monocytes/100 WBC Auto (Bld) Ordered By: Rubio Crooks on 12-20-2023 Monocytes/100 WBC (Bld) N/A [facility] Monocytes/100 leukocytes in Blood by Manual countOrdered By: Rubio Crooks on 12-20-2023 Monocytes/100 WBC (Bld) 7 % Normal 2-11 [facility] Comment on above: Performed By: #### P P, MG, CMP, DIFF CBC ####[address] Myelocytes/100 WBC Manual cn t (Bld)Ordered By: Rubio rCooks on 12-20-2023 Myelocytes/100 WBC (Bld) 1 % High 0-0 [facility] Neutrophils Auto (Bld) [#/Vo l]Ordered By: Rubio Crooks on 12-20-2023 Neutrophils (Bld) [#/Vol] N/A [facility] Neutrophils/100 WBC Auto (Bl d)Ordered By: Rubio Crooks on 12-20-2023 Neutrophils/100 WBC (Bld) N/A [facility] Nitrite Test strip Ql (U)Ord ered By: Rubio Crooks on 12-20-2023 Nitrite Ql (U) Negative Negative [facility] No Panel InformationOrdered By: Rubio Crooks on 12-20-2023 Estimated GFR (CKD-EPI) > 60.0 mL/Min [facility] Creatinine Clearance (Chem 51.02 [facility] > 60.0 mL/Min [facility] 51.02 [facility] Nucleated erythrocytes [Pres ence] in Blood by Automated countOrdered By: Rubio Crooks on 12-20-2023 Nucleated RBC Auto Ql (Bld) N/A [facility] Ovalocyte detectionOrdered B y: Rubio Crooks on 12-20-2023 Ovalocytes LM Ql (Bld) [facility] Platelet adequacy [Presence] in Blood by Light microscopyOrdered By: Rubio Crooks on 12-20-2023 Platelets LM Ql (Bld) Normal Normal [facility] Platelet mean volume [Entiti c volume] in Blood by Automated countOrdered By: Rubio Crooks on 12-20-2023 Platelet mean volume (Bld) [Entitic vol] 8.1 fL Normal 6.6-10.1 [facility] Comment on above: Performed By: #### P P, MG, CMP, DIFF CBC ####[facility] [place] [address] [facility] Platelet morphology finding [Identifier] in BloodOrdered By: Rubio Crooks on 12-20-2023 Platelet morphology finding Nom (Bld) Normal Normal [facility] Platelets [#/volume] in Bloo d by Automated countOrdered By: Rubio Crooks on 07-07-2024 Platelets (Bld) [#/Vol] 156 10*3/uL Normal 150-450 [facility] Comment on above: Performed By: #### P P, MG, CMP, DIFF CBC ####[facility] [id number] Poikilocytosis [Presence] in Blood by Light microscopyOrdered By: Rubio Crooks on 12-20-2023 Poikilocytosis LM Ql (Bld) [facility] Polychromasia [Presence] in Blood by Light microscopyOrdered By: Rubio Crooks on 12-20-2023 Polychromasia LM Ql (Bld) [facility] Potassium [Moles/volume] in Serum or PlasmaOrdered By: Rubio Crooks on 12-20-2023 Potassium [Moles/Vol] 4.4 mmol/L Normal 3.5-5.1 [facility] Comment on above: Performed By: #### P P, MG, CMP, DIFF CBC #### [facility] [address] Protein Test strip (U) [Mass /Vol]Ordered By: Rubio Crooks on 12-20-2023 Protein (U) [Mass/Vol] Trace mg/dL High Negative [facility] Protein [Mass/volume] in Ser um or PlasmaOrdered By: Rubio Crooks on 12-20-2023 Protein [Mass/Vol] 7.3 g/dL Normal 6.4-8.9 [facility] Comment on above: Performed By: #### P P, MG, CMP, DIFF CBC #### [facility] [address] Prothrombin time (PT)Ordered By: Rubio Crooks on 12-20-2023 PT Coag (PPP) [Time] 20.7 s High 9.0-12.9 [facility] Comment on above: A hematocrit value g reater than 55% may lead to inaccurate results in coagulation testing. Patients having hematocrit values >55% require a special collection tube for coagulation studies. Please contact the laboratory at [phone] for redraw instructions. Result Comment: A he matocrit value greater than 55% may lead to inaccurate results in coagulation testing. Patients having hematocrit values >55% require a special collection tube for coagulation studies. Please contact the laboratory at [phone] for redraw instructions. Performed By: #### P P, MG, CMP, DIFF CBC #### [address] RBC morphologyOrdered By: Raquel Crooks on 12-20-2023 RBC morphology finding Nom (Bld) N/A [facility] Serum globulin measurement b y calculation (mass/volume)Ordered By: Rubio Crooks on 12-20-2023 Globulin (S) [Mass/Vol] 3.1 g/dL [facility] Comment on above: Performed By: #### P P, MG, CMP, DIFF CBC #### [address] Serum or plasma albumin/glob ulin mass ratioOrdered By: Rubio Crooks on 12-20-2023 Albumin/Globulin [Mass ratio] 1.4 {ratio} [facility] Comment on above: Performed By: #### P P, MG, CMP, DIFF CBC #### [address] Serum or plasma anion gap de terminationOrdered By: Rubio Crooks on 12-20-2023 Anion gap [Moles/Vol] 9.4 mmol/L Normal 6.0-15.0 [facility] Comment on above: Performed By: #### P P, MG, CMP, DIFF CBC #### [address] Sodium [Moles/volume] in Ser um or PlasmaOrdered By: Rubio Crooks on 12-20-2023 Sodium [Moles/Vol] 138 mmol/L Normal 136-145 [facility] Comment on above: Performed By: #### P P, MG, CMP, DIFF CBC #### [address] Specific gravity Test strip (U) [Rel density]Ordered By: Rubio Crooks on 12-20-2023 Specific gravity (U) [Rel density] 1.019 1.001-1.[address] [facility] Urea nitrogen [Mass/volume] in Serum or PlasmaOrdered By: Rubio Crooks on 12-20-2023 Urea nitrogen [Mass/Vol] 31 mg/dL High 7-25 [facility] Comment on above: Performed By: #### P P, MG, CMP, DIFF CBC #### [facility] [address] [place] [address] Urine appearanceOrdered By: Rubio Crooks on 12-20-2023 Appearance (U) Clear Normal Clear [facility] Comment on above: Order Comment: Name Collection Type:: Clean-Voided Midstream Performed By: #### B MP, CBC #### [facility] [address] [place] [address] Urobilinogen Test strip (U) [Mass/Vol]Ordered By: Rubio Crooks on 12-20-2023 Urobilinogen (U) [Mass/Vol] Normal mg/dL Normal [facility] XR femur RT 2V*on 12-20-2023 XR femur RT 2V* [facility] [place] [address] [place] [address] XRay Report Signed Patient: Fani Chua MR#: [id number] : 1935 Acct:[id number] Age/Sex: 88 / M ADM Date: 12/20/23 Loc: Room: [address] [place] [address] Type: ADM INOo Attending Dr: Betty Buchanan MD Copies to: MD Rubio Owen Jr, MD Ordering Provider: Rubio Crooks Jr, MD Date of Service: 12/20/23 XR/XR knee RT 4V*: Fall ([id number]) XR/XR femur RT 2V*: Fall ([id number]) XR/XR shoulder LT min 2V*: Fall CLINICAL DATA: Patient fell in driveway. Right knee pain radiating up the leg AND ABRASIONS. RIGHT KNEE - 4 views COMPARISON: None AP, lateral and both oblique views were obtained. There is osteopenia. There is a transverse nondisplaced fracture at the midpole of the patella. No other fractures or dislocation are seen. There is no disproportionate joint space narrowing though there is mild marginal spurring and possible meniscal chondrocalcinosis. There is a knee effusion. There is prepatellar soft tissue swelling. There is atherosclerotic disease. XR/XR knee RT 4V* IMPRESSION: OSTEOPENIA AND DEGENERATIVE CHANGES. NONDISPLACED PATELLAR FRACTURE. KNEE EFFUSION. RIGHT FEMUR - 2 views COMPARISON: None AP and lateral views were obtained. 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 The hardware appears intact and in appropriate position. The bony structures are osteopenic. A patellar fracture is again visualized. There are no additional acute bony injury. There is no dislocation. A knee effusion is seen. There are hemostasis clips along the pelvic sidewalls bilaterally. Atherosclerotic disease is noted. IMPRESSION: OSTEOPENIA. SATISFACTORY APPEARANCE OF HIP REPLACEMENT. PATELLAR FRACTURE. LEFT SHOULDER - 3 views COMPARISON: None AP, Y and Grashey views were obtained. There is osteopenia. There is no evidence of fracture or dislocation. There are no significant soft tissue abnormalities. IMPRESSION: NO ACUTE BONY INJURY. Impression dictated by: Cyn Llamas M.D.12/20/2023 10:33 AM Dictation Location: [place] [address] Transcribed By: [facility] 12/20/23 1033 Dictated By: Cyn Llamas MD 12/20/23 1028 Signed By: 12/20/23 1033 Normal [facility] pH of Urine by Test stripOrd ered By: Rubio Crooks on 12-20-2023 pH (U) 5.0 [pH] Normal 5.0-9.0 [facility] Comment on above: Order Comment: Name Collection Type:: Clean-Voided Midstream Performed By: #### B MP, [facility] #### [facility] [address] XR SHOULDER 2+ VIEWS LEFTon 09-24-2023 XR SHOULDER 2+ VIEWS LEFT EXAMINATION/TECHNIQUE: XR SHOULDER 2+ VIEWS LEFT HISTORY: Left shoulder pain after fall 10 days ago. COMPARISON: None RESULT: No evidence for acute fracture. No dislocation. At least mild degenerative changes of the glenohumeral joint. Moderate degenerative changes of the acromioclavicular joint. Narrowing of the acromiohumeral interval, associated with chronic rotator cuff arthropathy/tearing. No distinct acute findings in the visualized thorax. IMPRESSION: No acute osseous findings. ELECTRONICALLY SIGNED BY: Pedrito Owens MD Normal Not Available XR ELBOW 3+ VIEWS LEFTon XR ELBOW 3+ VIEWS LEFT CLINICAL HISTORY: left elbow pain COMPARISON: NONE. 4 VIEWS LEFT ELBOW FINDINGS: There are no lytic or sclerotic bone lesions. There is no acute fracture or subluxation. The soft tissues are within normal limits, there are no radiopaque foreign bodies.. IMPRESSION: There are no acute osseous changes. ELECTRONICALLY SIGNED BY: Severo Verde MD Normal Not Available INR in Platelet poor plasma by Coagulation assayOrdered By: Isai May on 06-06-2023 INR Coag (PPP) [Relative time] 2.2 {INR} [facility] Comment on above: INR Therapeutic Rang e A) Pre- and Peroperative OAT started two weeks before surgery. NOT HIP SURGERY: 1.5 - 2.5 HIP SURGERY: 2 - 3B) Primary and secondary prevention of venous THROMBOSIS: 2 - 3C) Active venous thrombosis, pulmonary embolismand prevention of recurrent venous thrombosis: 2 - 3D) Prevention of arterial thromboembolismincluding patients with mechanical heart valves: 3 - 4.5 Magnesium [Mass/volume] in S aime or PlasmaOrdered By: Isai May on 06-06-2023 Magnesium [Mass/Vol] 1.6 mg/dL 1.9-2.7 [facility] Prothrombin time (PT)Ordered By: Isai May on 06-06-2023 PT Coag (PPP) [Time] 25.0 s 9.0-12.9 [facility] Comment on above: A hematocrit value g reater than 55% may lead to inaccurate results in coagulation testing. Patients having hematocrit values >55% require a special collection tube for coagulation studies. Please contact the laboratory at [phone] for redraw instructions. Basophils Auto (Bld) [#/Vol] Ordered By: Isai May on 06-05-2023 Basophils (Bld) [#/Vol] 0.0 10*3/uL 0.0-0.2 [facility] Basophils/100 WBC Auto (Bld) Ordered By: Isai aMy on 06-05-2023 Basophils/100 WBC (Bld) 0.6 % . [facility] Calcium [Mass/volume] in Ser um or PlasmaOrdered By: Isai May on 06-05-2023 Calcium [Mass/Vol] 9.2 mg/dL 8.6-10.3 [facility] Carbon dioxide, total [Moles /volume] in Serum or PlasmaOrdered By: Isai May on 06-05-2023 CO2 [Moles/Vol] 25.2 mmol/L 21.0-31.0 [facility] Chloride [Moles/volume] in S aime or PlasmaOrdered By: Isai May on 06-05-2023 Chloride [Moles/Vol] 106 mmol/L 98-107 [facility] Cholesterol [Mass/volume] in Serum or PlasmaOrdered By: Isai May on 06-05-2023 Cholesterol [Mass/Vol] 148 mg/dL 140-200 [facility] Comment on above: Chol less than 200 m g/dl low riskChol 201-239 mg/dl borderline riskChol 240 mg/dl and greater high risk Cholesterol in LDL Calc [Mas s/Vol]Ordered By: Isai May on 06-05-2023 Cholesterol in LDL [Mass/Vol] 79 mg/dL 0-100 [facility] Comment on above: LDL ATP III CLASSIFI CATIONLDL less than 100 mg/dL OptimalLDL 100-129 mg/dL Near or above optimalLDL 130-159 mg/dL Borderline highLDL 160-189 mg/dL HighLDL greater than 189 mg/dL Very high Cholesterol in VLDL Calc [Ma ss/Vol]Ordered By: Isai May on 06-05-2023 Cholesterol in VLDL [Mass/Vol] 17 mg/dL [facility] Creatine kinase [Enzymatic a ctivity/volume] in Serum or PlasmaOrdered By: Isai May on 06-05-2023 CK [Catalytic activity/Vol] 56 U/L 30-223 [facility] Creatinine [Mass/volume] in Serum or PlasmaOrdered By: Isai May on 06-05-2023 Creatinine [Mass/Vol] 0.86 mg/dL 0.70-1.30 [facility] Eosinophils Auto (Bld) [#/Vo l]Ordered By: Isai May on 06-05-2023 Eosinophils (Bld) [#/Vol] 0.1 10*3/uL 0.0-0.45 [facility] Eosinophils/100 WBC Auto (Bl d)Ordered By: Isai May on 06-05-2023 Eosinophils/100 WBC (Bld) 2.3 % . [facility] Erythrocyte distribution wid th Auto (RBC) [Ratio]Ordered By: Isai May on 06-05-2023 Erythrocyte distribution width (RBC) [Ratio] 14.6 % 12.0-14.8 [facility] Glucose [Mass/volume] in Ser um or PlasmaOrdered By: Isai May on 06-05-2023 Glucose [Mass/Vol] 96 mg/dL 70-100 [facility] Comment on above: ADA recommended refe rence rangeRandom Glucose Reference Range is dependent on time and content of last meal. Glucose of more than 200 mg/dL in a nonstressed, ambulatory subject supports the diagnosis of Diabetes Mellitus. Glucose mean value [Mass/vol ume] in Blood Estimated from glycated hemoglobinOrdered By: Isai May on 06-05-2023 Average glucose Estimated from glycated hemoglobin (Bld) [Mass/Vol] 114 mg/dL [facility] Hematocrit Auto (Bld) [Volum e fraction]Ordered By: Isai May on 06-05-2023 Hematocrit (Bld) [Volume fraction] 35.9 % 38.8-50.0 [facility] Hemoglobin A1c percentageOrd ered By: Isai May on 06-05-2023 HbA1c (Bld) [Mass fraction] 5.6 % 4.3-5.6 [facility] Comment on above: Increased risk for d iabetes: 5.7 - 6.4diabetes: >6.4glycemic control for adults with diabetes: <7.0 Hemoglobin [Mass/volume] in BloodOrdered By: Isai May on 06-05-2023 Hemoglobin (Bld) [Mass/Vol] 12.0 g/dL 13.0-17.0 [facility] Leukocytes [#/volume] correc amparo for nucleated erythrocytes in Blood by Automated counOrdered By: Isai May on 06-05-2023 WBC corrected for nucl RBC Auto (Bld) [#/Vol] 4.8 10*3/uL 4.1-10.5 [facility] Lymphocytes Auto (Bld) [#/Vo l]Ordered By: Isai May on 06-05-2023 Lymphocytes (Bld) [#/Vol] 1.2 10*3/uL 1.00-4.8 [facility] Lymphocytes/100 WBC Auto (Bl d)Ordered By: Isai May on 06-05-2023 Lymphocytes/100 WBC (Bld) 24.7 % . [facility] MCH Auto (RBC) [Entitic mass ]Ordered By: Isai May on 06-05-2023 MCH (RBC) [Entitic mass] 29.3 pg 27.5-35.2 [facility] MCHC Auto (RBC) [Mass/Vol]Or dered By: Isai May on 06-05-2023 MCHC (RBC) [Mass/Vol] 33.6 g/dL 32.5-35.6 [facility] MCV Auto (RBC) [Entitic vol] Ordered By: Isai May on 06-05-2023 MCV (RBC) [Entitic vol] 87.4 fL 83.5-101 [facility] Monocytes Auto (Bld) [#/Vol] Ordered By: Isai May on 06-05-2023 Monocytes (Bld) [#/Vol] 0.7 10*3/uL 0.0-0.8 [facility] Monocytes/100 WBC Auto (Bld) Ordered By: Isai May on 06-05-2023 Monocytes/100 WBC (Bld) 13.7 % . [facility] Neutrophils Auto (Bld) [#/Vo l]Ordered By: Isai May on 06-05-2023 Neutrophils (Bld) [#/Vol] 2.8 10*3/uL 1.8-7.7 [facility] Neutrophils/100 WBC Auto (Bl d)Ordered By: Isai May on 06-05-2023 Neutrophils/100 WBC (Bld) 58.7 % . [facility] No Panel InformationOrdered By: Isai May on 06-05-2023 Estimated GFR (CKD-EPI) > 60.0 mL/Min [facility] Creatinine Clearance (Chem 60.52 [facility] Nucleated erythrocytes [Pres ence] in Blood by Automated countOrdered By: Isia May on 06-05-2023 Nucleated RBC Auto Ql (Bld) 0.0 /100{WBC} 0-0.5 [facility] Platelet mean volume Auto (B ld) [Entitic vol]Ordered By: Isai May on 06-05-2023 Platelet mean volume (Bld) [Entitic vol] 8.4 fL 6.6-10.1 [facility] Platelets Auto (Bld) [#/Vol] Ordered By: Isai May on 06-05-2023 Platelets (Bld) [#/Vol] 158 10*3/uL 150-450 [facility] Potassium [Moles/volume] in Serum or PlasmaOrdered By: Isai May on 06-05-2023 Potassium [Moles/Vol] 3.7 mmol/L 3.5-5.1 [facility] RBC Auto (Bld) [#/Vol]Ordere d By: Isai May on 06-05-2023 RBC (Bld) [#/Vol] 4.11 10*6/uL 3.90-5.60 [facility] Serum or plasma anion gap de terminationOrdered By: Isai May on 06-05-2023 Anion gap [Moles/Vol] 11.5 mmol/L 6.0-15.0 [facility] Serum or plasma high density lipoprotein (HDL) cholesterol measurementOrdered By: Isai May on 06-05-2023 Cholesterol in HDL [Mass/Vol] 52 mg/dL 23-92 [facility] Comment on above: HDL CHOL ATP-III CLA SSIFICATION Cardiovascular RiskHDL > or equal to 60 mg/dL LOWHDL < 40 mg/dL HIGH Serum or plasma total choles terol/high density lipoprotein (HDL) cholesterol mass ratOrdered By: Isai May on 06-05-2023 Cholesterol.total/Chol esterol in HDL [Mass ratio] 2.8 {ratio} <5.0 [facility] Sodium [Moles/volume] in Ser um or PlasmaOrdered By: Isai May on 06-05-2023 Sodium [Moles/Vol] 139 mmol/L 136-145 [facility] Triglyceride [Mass/volume] i n Serum or PlasmaOrdered By: Isai May on 06-05-2023 Triglyceride [Mass/Vol] 87 mg/dL 0-149 [facility] Comment on above: TRIG ATP III CLASSIF ICATIONTRIG less than 150 mg/dL NormalTRIG 150-199 mg/dL Borderline highTRIG 200-500 mg/dL High TRIG greater than 500 mg/dL Very highStandard traceable to the Center for Disease Conrtrol and Prevention (CDC) test method. Troponin I.cardiac [Mass/vol ume] in Serum or Plasma by Detection limit <= 0.01 ng/Ordered By: Isai May on 06-05-2023 Troponin I.cardiac DL <= 0.01 ng/mL [Mass/Vol] 55.4 pg/mL 0.0-20.0 [facility] Comment on above: Critical Result : Ca lled to and read back by: DELILAH PINON at: 06/05/2023 20:01:35 by:[id number] Urea nitrogen [Mass/volume] in Serum or PlasmaOrdered By: Isai May on 06-05-2023 Urea nitrogen [Mass/Vol] 20 mg/dL 01-06 [facility] WBC Auto (Bld) [#/Vol]Ordere d By: Isai May on 06-05-2023 WBC (Bld) [#/Vol] 4.8 10*3/uL 4.1-10.5 [facility] Activated partial thrombopla stin time (aPTT) in platelet poor plasma by coagulation aOrdered By: Tay Wood on 06-04-2023 aPTT Coag (PPP) [Time] 48.5 s 25.1-36.5 [facility] Comment on above: A hematocrit value g reater than 55% may lead to inaccurate results in coagulation testing. Patients having hematocrit values >55% require a special collection tube for coagulation studies. Please contact the laboratory at [phone] for redraw instructions. Alanine aminotransferase [En zymatic activity/volume] in Serum or PlasmaOrdered By: Tay Wood on 06-04-2023 ALT [Catalytic activity/Vol] 19 U/L [facility] Albumin [Mass/volume] in Ser um or Plasma by Bromocresol green (BCG) dye binding methoOrdered By: Tay Wood on 06-04-2023 Albumin BCG dye [Mass/Vol] 4.2 g/dL 3.5-5.7 [facility] Alkaline phosphatase [Enzyma tic activity/volume] in Serum or PlasmaOrdered By: Tay Wood on 06-04-2023 ALP [Catalytic activity/Vol] 97 U/L 34-104 [facility] Aspartate aminotransferase [ Enzymatic activity/volume] in Serum or PlasmaOrdered By: Tay Wood on 06-04-2023 AST [Catalytic activity/Vol] 30 U/L 13-39 [facility] Bilirubin Test strip Ql (U)O rdered By: Tay Wood on 06-04-2023 Bilirubin Ql (U) Negative Negative [facility] Bilirubin.direct [Mass/volum e] in Serum or PlasmaOrdered By: Tay Wood on 06-04-2023 Bilirubin.direct [Mass/Vol] 0.10 mg/dL 0.03-0.18 [facility] Bilirubin.total [Mass/volume ] in Serum or PlasmaOrdered By: Tay Wood on 06-04-2023 Bilirubin [Mass/Vol] 0.5 mg/dL 0.3-1.0 [facility] Color Auto (U)Ordered By: Tomas red Nina on 06-04-2023 Color (U) Yellow Yellow [facility] Creatinine (Bld) [Mass/Vol]O rdered By: Isai May on 06-04-2023 Creatinine [Mass/Vol] 1.0 mg/dL 0.6-1.3 [facility] Comment on above: ER/ESD physician is notified/shown all ISTAT results.Critical values may be confirmed by laboratory testing ifdeemed necessary by ER attending doctor. Globulin Calc (S) [Mass/Vol] Ordered By: Tay Wood on 06-04-2023 Globulin (S) [Mass/Vol] 3.1 g/dL [facility] Glucose Glucometer (BldC) [M ass/Vol]Ordered By: Tay Wood on 06-04-2023 Glucose [Mass/Vol] 92 mg/dL [facility] Comment on above: Random Glucose Refer ence Range is dependent on time and content of last meal. Glucose of more than 200 mg/dL in a nonstressed, ambulatory subject supports the diagnosis of Diabetes Mellitus. Ketones Auto test strip (U) [Mass/Vol]Ordered By: Tay Wood on 06-04-2023 Ketones (U) [Mass/Vol] Negative Negative [facility] Monocyte distribution width [Entitic volume] in Blood by AutomatedOrdered By: Tay Wood on 06-04-2023 Monocyte distribution width Auto (Bld) [Entitic vol] 17.82 % 0.00-20.00 [facility] Natriuretic peptide B [Mass/ Vol]Ordered By: Tay Wood on 06-04-2023 Natriuretic peptide B (Bld) [Mass/Vol] 404.0 pg/mL 5-100 [facility] Nitrite Test strip Ql (U)Ord ered By: Tay Wood on 06-04-2023 Nitrite Ql (U) Negative Negative [facility] No Panel InformationOrdered By: Isai May on 06-04-2023 Bedside Estimated GFR (eGFR) > 60.0 [facility] Protein Auto test strip (U) [Mass/Vol]Ordered By: Tay Wood on 06-04-2023 Protein (U) [Mass/Vol] Negative Negative [facility] Protein [Mass/volume] in Ser um or PlasmaOrdered By: Tay Wood on 06-04-2023 Protein [Mass/Vol] 7.3 g/dL 6.4-8.9 [facility] Serum or plasma albumin/glob ulin mass ratioOrdered By: Tay Wood on 06-04-2023 Albumin/Globulin [Mass ratio] 1.4 {ratio} [facility] Serum or plasma non-glucuron idated bilirubin measurement (mass/volume)Ordered By: Tay Wood on 06-04-2023 Bilirubin.indirect [Mass/Vol] 0.4 mg/dL [facility] Specific gravity Auto test s trip (U) [Rel density]Ordered By: Tay Wood on 06-04-2023 Specific gravity (U) [Rel density] 1.038 1.001-1.[address] [facility] Urine clarity by refractomet ry automatedOrdered By: Tay Wood on 06-04-2023 Clarity Refractometry automated (U) Clear Clear [facility] Urine glucose measurement by automated test strip (mass/volume)Ordered By: Tay Wood on 06-04-2023 Glucose Auto test strip (U) [Mass/Vol] Normal mg/dL Normal [facility] Urine hemoglobin detection b y automated test stripOrdered By: Tay Wood on 06-04-2023 Hemoglobin Auto test strip Ql (U) Negative Negative [facility] Urine leukocyte esterase det ection by automated test stripOrdered By: Tay Wood on 06-04-2023 Leukocyte esterase Auto test strip Ql (U) Negative Negative [facility] Urobilinogen Auto test strip (U) [Mass/Vol]Ordered By: Tay Wood on 06-04-2023 Urobilinogen (U) [Mass/Vol] Normal mg/dL Normal [facility] pH Auto test strip (U)Ordere d By: Tay Wood on 06-04-2023 pH (U) 5.0 [pH] 5.0-9.0 [facility] Ammonium urate crystals dete ction in stone by infrared spectroscopyOrdered By: Julio C Ramirez on 05-05-2023 Ammonium urate crystals Infrared spectroscopy Ql (Stone) N/A [facility] Calcium bilirubinate measure mentOrdered By: Julio C Ramirez on 05-05-2023 Calcium bilirubinate (Stone) [Mass fraction] N/A [facility] Calcium carbonate measuremen tOrdered By: Julio C Ramirez on 05-05-2023 Calcium carbonate (Stone) [Mass fraction] N/A [facility] Calcium hydrogen phosphate d ihydrate/Total in StoneOrdered By: Julio C Ramirez on 05-05-2023 Calcium hydrogen phosphate dihydrate (Stone) [Mass fraction] N/A [facility] Calcium oxalate dihydrate cr ystals detection in stone by infrared spectroscopyOrdered By: Julio C Ramirez on 05-05-2023 Calcium oxalate dihydrate crystals Infrared spectroscopy Ql (Stone) N/A [facility] Calcium oxalate monohydrate/ Total in StoneOrdered By: Julio C Ramirez on 05-05-2023 Calcium oxalate monohydrate (Stone) [Mass fraction] 10 % . [facility] Calcium phosphate measuremen tOrdered By: Julio C Ramirez on 05-05-2023 Calcium phosphate (Stone) [Mass fraction] N/A [facility] [facility] Calculus analysis interpreta tion in stoneOrdered By: Julio C Ramirez on 05-05-2023 Calculus analysis [Interp] N/A [facility] Calculus analysis [Interp] See comment . [facility] Comment on above: Calculus received we t. Wet calculi must be dried beforeanalysis, which delays reporting of results. Leaving calculiwet (such as water, saline, blood, urine) may lead tochanges in composition. Physician questions regarding Calculi Analysis [facility] at: [phone]. Calculi report will follow via computer, mail or courierdelivery. Calculus analysis with calcu ewa photography interpretation in stoneOrdered By: Julio C Ramirez on 05-05-2023 Calculus analysis with calculus photography [Interp] See comment . [facility] Comment on above: Photograph will foll ow under a separate cover Cellular material measuremen t in stone by estimated (mass/mass)Ordered By: Julio C Ramirez on 05-05-2023 Cellular material Est (Stone) [Mass/Mass] N/A [facility] Cholesterol/Total in StoneOr dered By: Julio C Ramirez on 05-05-2023 Cholesterol (Stone) [Mass fraction] N/A [facility] Composition of stoneOrdered By: Julio C Ramirez on 05-05-2023 Composition Nom (Stone) See comment . [facility] Comment on above: Percentage (Represen ts the % composition) Cystine measurementOrdered B y: Julio C Ramirez on 05-05-2023 Cystine (Unsp spec) [Moles/Vol] N/A [facility] Determination of color of ca lculusOrdered By: Julio C Ramirez on 05-05-2023 Color (Stone) Brown . [facility] Hydroxyapatite [Energy Diffe rence] in 24 hour UrineOrdered By: Julio C Ramirez on 05-05-2023 Hydroxyapatite (24H U) [Energy diff] N/A [facility] Measurement of proportion of calculus composed of dried blood (mass/mass)Ordered By: Julio C Ramirez on 05-05-2023 Blood.dried (Stone) [Mass fraction] N/A [facility] Newberyite/Total in StoneOrd ered By: Julio C Ramirez on 05-05-2023 Newberyite (Stone) [Mass fraction] N/A [facility] No Panel InformationOrdered By: Julio C Ramirez on 05-05-2023 Stone 2,8 Dihydroxyadenine N/A [facility] Stone Analysis Disclaimer See comment . [facility] Comment on above: This test was develo ped and its performance characteristicsdetermined by [employer]. It has not been cleared or approvedby the Food and Drug Administration.Performed at: [employer] [id number] Director: Tone Kelly PhD, Phone: [phone] Stone Bilirubinate N/A [facility] Stone Calcium Palmitate N/A [facility] Stone Calcium Stearate N/A [facility] Stone Carbonate Apatite N/A [facility] Stone Drug or Metabolite N/A [facility] Stone Other Constituent N/A [facility] Stone Xanthine N/A [facility] Size [Entitic volume] of Sto neOrdered By: Julio C Ramirez on 05-05-2023 Size (Stone) [Entitic vol] 5x[address] [facility] Comment on above: Multiple pieces rece ived. Dimensions of the largest piecereported. Sodium urate crystals detect ion in stone by infrared spectroscopyOrdered By: Julio C Ramirez on 05-05-2023 Sodium urate crystals Infrared spectroscopy Ql (Stone) N/A [facility] Specimen source subject [Typ e]Ordered By: Julio C Ramirez on 05-05-2023 Specimen source subject Nom See comment . [facility] Comment on above: Right Ureter Triamterene measurement in c alculusOrdered By: Julio C Ramirez on 05-05-2023 Triamterene (Stone) [Mass fraction] N/A [facility] Triple phosphate/Total in St oneOrdered By: Julio C Ramirez on 05-05-2023 Triple phosphate (Stone) [Mass fraction] N/A [facility] Uric acid dihydrate crystals detection in stone by infrared spectroscopyOrdered By: Julio C Ramirez on 05-05-2023 Urate dihydrate crystals Infrared spectroscopy Ql (Stone) 90 % . [facility] Urate dihydrate crystals Infrared spectroscopy Ql (Stone) N/A [facility] Heart TransthoracicOrdere d By: Bonita Kingsley on 04-03-2023 LV A4C EF 32.8 [facility] Work Phone: [facility] Work Phone: Heart Transthoracicon [facility] [address] [place] [address], [address], [place] [address] TRANSTHORACIC ECHOCARDIOGRAM REPORT Patient Name: FANI Caldwell Physician: [id number] Bonita Kingsley MD, [facility] Study Date: 04/03/2023 Ordering Provider: [id number] BONITA KINGSLEY MRN/PID: [id number] Fellow: Nurse: Date of /Age: 12 1935 / 87 years Vp Data: Maria Eugenia Lin RDCS, T Gender: M Additional Staff: Height: 175.26 cm Admit Date: Weight: 75.75 kg Admission Status: BSA: 1.91 m2 Department Location: [facility] Blood Pressure: 130 /74 mmHg Study Type: TRANSTHORACIC ECHO (TTE) COMPLETE Diagnosis/ICD: 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 Ramirez 04/10/2023 CPT Codes: Echo Complete w Full Doppler-[id number] Study Detail: The following Echo studies were performed: 2D, M-Mode, Doppler and color flow. PHYSICIAN INTERPRETATION: Left Ventricle: Left ventricular systolic function is mildly to moderately decreased, with an estimated ejection fraction of 45%. There is global hypokinesis of the left ventricle with minor regional variations. The left ventricular cavity size is moderate to severely dilated. Left ventricular diastolic filling was not assessed. Patient was in atrial fibrillation throughout the study. Left Atrium: The left atrium is severely dilated. Right Ventricle: The right ventricle is normal in size. There is normal right ventricular global systolic function. Right Atrium: The right atrium is moderately dilated. Aortic Valve: The aortic valve appears abnormal. There is trivial aortic valve regurgitation. The peak instantaneous gradient of the aortic valve is 19.2 mmHg. The mean gradient of the aortic valve is 10.0 mmHg. There is a TAVR in good position and function. Mitral Valve: The mitral valve is mildly thickened. There is moderate mitral valve regurgitation. Tricuspid Valve: The tricuspid valve is structurally normal. There is moderate tricuspid regurgitation. Calculated RVSP 49 mmHg consistent with moderate pulmonary hypertension. Pulmonic Valve: The pulmonic valve is not well visualized. There is no indication of pulmonic valve regurgitation. Pericardium: There is no pericardial effusion noted. Aorta: The aortic root is normal. Systemic Veins: The inferior vena cava appears mildly dilated. In comparison to the previous echocardiogram(s): When compared to a study from February 2022, there is more dilatation of the left ventricle with progression of the mitral regurgitation from mild to moderate, left ventricle ejection fraction has slightly dropped as well, the TAVR has not changed. CONCLUSIONS: 1. Left ventricular systolic function is mildly to moderately decreased with a 45% estimated ejection fraction. 2. Patient was in atrial fibrillation throughout the study. 3. The left atrium is severely dilated. 4. The right atrium is moderately dilated. 5. Moderate mitral valve regurgitation. 6. Calculated RVSP 49 mmHg consistent with moderate pulmonary hypertension. 7. Moderate tricuspid regurgitation. 8. Aortic valve appears abnormal. 9. There is a TAVR in good position and function. 10. Left ventricular cavity size is moderate to severely dilated. 11. When compared to a study from February 2022, there is more dilatation of the left ventricle with progression of the mitral regurgitation from mild to moderate, left ventricle ejection fraction has slightly dropped as well, the TAVR has not changed. 12. There is global hypokinesis of the left ventricle with minor regional variations. QUANTITATIVE DATA SUMMARY: 2D MEASUREMENTS: Normal Ranges: Ao Root d: 3.40 cm (2.0-3.7cm) LAs: 6.40 cm (2.7-4.0cm) RVIDd: 3.30 cm (0.9-3.6cm) IVSd: 1.00 cm (0.6-1.1cm) LVPWd: 1.20 cm (0.6-1.1cm) LVIDd: 7.20 cm (3.9-5.9cm) LVIDs: 5.80 cm LV Mass Index: 199.2 g/m2 LV % FS 19.4 % LV SYSTOLIC FUNCTION BY 2D PLANIMETRY (MOD): Normal Ranges: EF-A4C View: 32.8 % (>=55%) LV DIASTOLIC FUNCTION: Normal Ranges: MV Peak E: 1.06 m/s (0.7-1.2 m/s) MITRAL VALVE: Normal Ranges: M (more content not included)... Bonita Neri M D - 04/03/[address], Suite [facility], [place] [address] TRANSTHORACIC ECHOCARDIOGRAM REPORT Patient Name: FANI Johnson MAGGI Caldwell Physician: [id number] Bonita Kingsley MD, [facility] Study Date: 04/03/2023 Ordering Provider: [id number] BONITA KINGSLEY MRN/PID: [id number] Fellow: Nurse: Date of /Age: 12 1935 / 87 years Vp Data: Maria Eugenia Lin RDCS [place] Gender: M Additional Staff: Height: 175.26 cm Admit Date: Weight: 75.75 kg Admission Status: BSA: 1.91 m2 Department Location: [facility] Blood Pressure: 130 /74 mmHg Study Type: TRANSTHORACIC ECHO (TTE) COMPLETE Diagnosis/ICD: 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 Ramirez 04/10/2023 CPT Codes: Echo Complete w Full Doppler-[id number] Study Detail: The following Echo studies were performed: 2D, M-Mode, Doppler and color flow. PHYSICIAN INTERPRETATION: Left Ventricle: Left ventricular systolic function is mildly to moderately decreased, with an estimated ejection fraction of 45%. There is global hypokinesis of the left ventricle with minor regional variations. The left ventricular cavity size is moderate to severely dilated. Left ventricular diastolic filling was not assessed. Patient was in atrial fibrillation throughout the study. Left Atrium: The left atrium is severely dilated. Right Ventricle: The right ventricle is normal in size. There is normal right ventricular global systolic function. Right Atrium: The right atrium is moderately dilated. Aortic Valve: The aortic valve appears abnormal. There is trivial aortic valve regurgitation. The peak instantaneous gradient of the aortic valve is 19.2 mmHg. The mean gradient of the aortic valve is 10.0 mmHg. There is a TAVR in good position and function. Mitral Valve: The mitral valve is mildly thickened. There is moderate mitral valve regurgitation. Tricuspid Valve: The tricuspid valve is structurally normal. There is moderate tricuspid regurgitation. Calculated RVSP 49 mmHg consistent with moderate pulmonary hypertension. Pulmonic Valve: The pulmonic valve is not well visualized. There is no indication of pulmonic valve regurgitation. Pericardium: There is no pericardial effusion noted. Aorta: The aortic root is normal. Systemic Veins: The inferior vena cava appears mildly dilated. In comparison to the previous echocardiogram(s): When compared to a study from February 2022, there is more dilatation of the left ventricle with progression of the mitral regurgitation from mild to moderate, left ventricle ejection fraction has slightly dropped as well, the TAVR has not changed. CONCLUSIONS: 1. Left ventricular systolic function is mildly to moderately decreased with a 45% estimated ejection fraction. 2. Patient was in atrial fibrillation throughout the study. 3. The left atrium is severely dilated. 4. The right atrium is moderately dilated. 5. Moderate mitral valve regurgitation. 6. Calculated RVSP 49 mmHg consistent with moderate pulmonary hypertension. 7. Moderate tricuspid regurgitation. 8. Aortic valve appears abnormal. 9. There is a TAVR in good position and function. 10. Left ventricular cavity size is moderate to severely dilated. 11. When compared to a study from February 2022, there is more dilatation of the left ventricle with progression of the mitral regurgitation from mild to moderate, left ventricle ejection fraction has slightly dropped as well, the TAVR has not changed. 12. There is global hypokinesis of the left ventricle with minor regional variations. QUANTITATIVE DATA SUMMARY: 2D MEASUREMENTS: Normal Ranges: Ao Root d: 3.40 cm (2.0-3.7cm) LAs: 6.40 cm (2.7-4.0cm) RVIDd: 3.30 cm (0.9-3.6cm) IVSd: 1.00 cm (0.6-1.1cm) LVPWd: 1.20 cm (0.6-1.1cm) LVIDd: 7.20 cm (3.9-5.9cm) LVIDs: 5.80 cm LV Mass Index: 199.2 g/m2 LV % FS 19.4 % LV SYSTOLIC FUNCTION BY 2D PLANIMETRY (MOD): Normal Ranges: EF-A4C View: 32.8 % (>=55%) LV DIASTOLIC FUNCTION: Normal Ranges: MV Peak E: 1.06 m/s (0.7-1.2 m/s) MITRAL VALVE: Normal Ranges: MV Vmax: 1.45 m/s (<=1.3m/s) MV peak P.4 mmHg (<5mmHg) MV mean P.0 mmHg (<48mmHg) MITRAL INSUFFICIENCY: Normal Ranges: MR Vmax: 529.33 cm/s dP/dt: 938 mmHg/s (>1200mmHg/sec) AORTIC VALVE: Normal Ranges: AoV Vmax: 2.19 m/s (<=1.7m/s) AoV Peak P.2 mmHg (<20mmHg) AoV Mean P.0 mmHg (1.7-11.5mmHg) LVOT Max Johnny: 0.82 m/s (<=1.1m/s) AoV VTI: 51.40 cm (18-25cm) LVOT VTI: 13.40 cm LVOT Diameter: 2.30 cm (1.8-2.4cm) AoV Area, VTI: 1.08 cm2 (2.5-5.5cm2) AoV Area,Vmax: 1.55 cm2 (2.5-4.5cm2) AoV Dimensionless Index: 0.26 AORTIC INSUFFICIENCY: A (more content not included)... [facility] Work Phone: Activated partial thrombopla stin time (aPTT) in platelet poor plasma by coagulation aOrdered By: Julio C Ramirez on 04-02-2023 aPTT Coag (PPP) [Time] 37.0 s 25.1-36.5 [facility] Comment on above: A hematocrit value g reater than 55% may lead to inaccurate results in coagulation testing. Patients having hematocrit values >55% require a special collection tube for coagulation studies. Please contact the laboratory at [phone] for redraw instructions. Basophils Auto (Bld) [#/Vol] Ordered By: Julio C Ramirez on 04-02-2023 Basophils (Bld) [#/Vol] 0.0 10*3/uL 0.0-0.2 [facility] Basophils/100 WBC Auto (Bld) Ordered By: Julio C Ramirez on 04-02-2023 Basophils/100 WBC (Bld) 0.8 % . [facility] Calcium [Mass/volume] in Ser um or PlasmaOrdered By: Julio C Ramirez on 04-02-2023 Calcium [Mass/Vol] 9.6 mg/dL 8.6-10.3 [facility] Carbon dioxide, total [Moles /volume] in Serum or PlasmaOrdered By: Julio C Ramirez on 04-02-2023 CO2 [Moles/Vol] 26.1 mmol/L 21.0-31.0 [facility] Chloride [Moles/volume] in S aime or PlasmaOrdered By: Julio C Ramirez on 04-02-2023 Chloride [Moles/Vol] 106 mmol/L 98-107 [facility] Creatinine [Mass/volume] in Serum or PlasmaOrdered By: Julio C Ramirez on 04-02-2023 Creatinine [Mass/Vol] 1.12 mg/dL 0.70-1.30 [facility] Eosinophils Auto (Bld) [#/Vo l]Ordered By: Julio C Ramirez on 04-02-2023 Eosinophils (Bld) [#/Vol] 0.1 10*3/uL 0.0-0.45 [facility] Eosinophils/100 WBC Auto (Bl d)Ordered By: Julio C Ramirez on 04-02-2023 Eosinophils/100 WBC (Bld) 1.9 % . [facility] Erythrocyte distribution wid th Auto (RBC) [Ratio]Ordered By: Julio C Ramirez on 04-02-2023 Erythrocyte distribution width (RBC) [Ratio] 15.9 % 12.0-14.8 [facility] Glucose [Mass/volume] in Ser um or PlasmaOrdered By: Julio C Ramirez on 04-02-2023 Glucose [Mass/Vol] 103 mg/dL 70-100 [facility] Comment on above: ADA recommended refe rence rangeRandom Glucose Reference Range is dependent on time and content of last meal. Glucose of more than 200 mg/dL in a nonstressed, ambulatory subject supports the diagnosis of Diabetes Mellitus. Hematocrit Auto (Bld) [Volum e fraction]Ordered By: Julio C Ramirez on 04-02-2023 Hematocrit (Bld) [Volume fraction] 39.9 % 38.8-50.0 [facility] Hemoglobin [Mass/volume] in BloodOrdered By: Julio C Ramirez on 04-02-2023 Hemoglobin (Bld) [Mass/Vol] 13.4 g/dL 13.0-17.0 [facility] INR in Platelet poor plasma by Coagulation assayOrdered By: Julio C Ramirez on 04-02-2023 INR Coag (PPP) [Relative time] 1.9 {INR} [facility] Comment on above: INR Therapeutic Rang e A) Pre- and Peroperative OAT started two weeks before surgery. NOT HIP SURGERY: 1.5 - 2.5 HIP SURGERY: 2 - 3B) Primary and secondary prevention of venous THROMBOSIS: 2 - 3C) Active venous thrombosis, pulmonary embolismand prevention of recurrent venous thrombosis: 2 - 3D) Prevention of arterial thromboembolismincluding patients with mechanical heart valves: 3 - 4.5 Leukocytes [#/volume] correc amparo for nucleated erythrocytes in Blood by Automated counOrdered By: Julio C Ramirez on 04-02-2023 WBC corrected for nucl RBC Auto (Bld) [#/Vol] 5.7 10*3/uL 4.1-10.5 [facility] Lymphocytes Auto (Bld) [#/Vo l]Ordered By: Julio C Ramirez on 04-02-2023 Lymphocytes (Bld) [#/Vol] 1.5 10*3/uL 1.00-4.8 [facility] Lymphocytes/100 WBC Auto (Bl d)Ordered By: Julio C Ramirez on 04-02-2023 Lymphocytes/100 WBC (Bld) 25.5 % . [facility] MCH Auto (RBC) [Entitic mass ]Ordered By: Julio C Ramirez on 04-02-2023 MCH (RBC) [Entitic mass] 29.6 pg 27.5-35.2 [facility] MCHC Auto (RBC) [Mass/Vol]Or dered By: Julio C Ramirez on 04-02-2023 MCHC (RBC) [Mass/Vol] 33.6 g/dL 32.5-35.6 [facility] MCV Auto (RBC) [Entitic vol] Ordered By: Julio C Ramirez on 04-02-2023 MCV (RBC) [Entitic vol] 88.1 fL 83.5-101 [facility] Monocytes Auto (Bld) [#/Vol] Ordered By: Julio C Ramirez on 04-02-2023 Monocytes (Bld) [#/Vol] 0.6 10*3/uL 0.0-0.8 [facility] Monocytes/100 WBC Auto (Bld) Ordered By: Julio C Ramirez on 04-02-2023 Monocytes/100 WBC (Bld) 10.9 % . [facility] Neutrophils Auto (Bld) [#/Vo l]Ordered By: Julio C Ramirez on 04-02-2023 Neutrophils (Bld) [#/Vol] 3.5 10*3/uL 1.8-7.7 [facility] Neutrophils/100 WBC Auto (Bl d)Ordered By: Julio C Ramirez on 04-02-2023 Neutrophils/100 WBC (Bld) 60.9 % . [facility] No Panel InformationOrdered By: Julio C Ramirez on 04-02-2023 Estimated GFR (CKD-EPI) > 60.0 mL/Min [facility] Creatinine Clearance (Chem N/A [facility] Nucleated erythrocytes [Pres ence] in Blood by Automated countOrdered By: Julio C Ramirez on 04-02-2023 Nucleated RBC Auto Ql (Bld) 0.1 /100{WBC} 0-0.5 [facility] Platelet mean volume Auto (B ld) [Entitic vol]Ordered By: Julio C Ramirez on 04-02-2023 Platelet mean volume (Bld) [Entitic vol] 8.3 fL 6.6-10.1 [facility] Platelets Auto (Bld) [#/Vol] Ordered By: Julio C Ramirez on 04-02-2023 Platelets (Bld) [#/Vol] 175 10*3/uL 150-450 [facility] Potassium [Moles/volume] in Serum or PlasmaOrdered By: Julio C Ramirez on 04-02-2023 Potassium [Moles/Vol] 4.4 mmol/L 3.5-5.1 [facility] Prothrombin time (PT)Ordered By: Julio C Ramirez on 04-02-2023 PT Coag (PPP) [Time] 22.4 s 9.0-12.9 [facility] Comment on above: A hematocrit value g reater than 55% may lead to inaccurate results in coagulation testing. Patients having hematocrit values >55% require a special collection tube for coagulation studies. Please contact the laboratory at [phone] for redraw instructions. RBC Auto (Bld) [#/Vol]Ordere d By: Julio C Ramirez on 04-02-2023 RBC (Bld) [#/Vol] 4.53 10*6/uL 3.90-5.60 [facility] Serum or plasma anion gap de terminationOrdered By: Julio C Ramirez on 04-02-2023 Anion gap [Moles/Vol] 12.3 mmol/L 6.0-15.0 [facility] Sodium [Moles/volume] in Ser um or PlasmaOrdered By: Julio C Ramirez on 04-02-2023 Sodium [Moles/Vol] 140 mmol/L 136-145 [facility] Urea nitrogen [Mass/volume] in Serum or PlasmaOrdered By: Julio C Ramirez on 04-02-2023 Urea nitrogen [Mass/Vol] 27 mg/dL 7-25 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) Permanent atrial fibrillation (427.31) (I48.21) High risk medication use (V58.69) (Z79.899) Pulmonary hypertension (416.8) (I27.20) Moderate, RVSP 50-55 mmHg echo February 2021 Former smoker (V15.82) (Z87.891) QUIT 2000 1PPD Body mass index (BMI) of 24.0 to 24.9 in adult (V85.1) (Z68.24) Orders Nonrheumatic aortic valve stenosis, Status post transcatheter aortic valve replacement Echocardiogram; Status:Hold For - Scheduling,Retrospective Authorization; Requested for:24Feb2023; SocHx: Former smoker Tobacco Use Screening; Status:Complete; Done: 24Feb2023 Patient Instructions Please bring all medicines, vitamins, and herbal supplements with you when you come to the office. Prescriptions will not be filled unless you are compliant with your follow up appointments or have a follow up appointment scheduled as per instruction of your physician. Refills should be requested at the time of your visit. Echo Room [address] from [facility] Follow up in 1 year. Chief Complaint FANI CHUA is being seen for an annual follow-up of. Patient seen in the office for follow-up for the problems noted below. 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 His last echocardiogram was a year ago and demonstrated normal functioning TAVR with insignificant perivalvular leak and moderate pulmonary hypertension. He remains without any evidence of dyspnea or lower extremity edema. He has chronic atrial fibrillation treated with Coumadin and self rate controlled. He had recent lab data which I reviewed and discussed with him and there were no areas of concern. He is hemoglobin is on the borderline. He tells me that he had a CT of the abdomen for his spine and they discovered enlarged kidney. We do not know the details but he is following with urology Dr. Ramirez. I requested report on the CT. His examination is unremarkable for irregular rhythm. Assessment/recommendation s: 1?history of severe aortic stenosis status post TAVR 2019 at [facility]. Follow-up echocardiogram is scheduled. Currently asymptomatic from that standpoint. 2?moderate pulmonary hypertension, echocardiogram February 2022 RVSP 50 mmHg, currently no dyspnea and no edema. Will monitor, I explained to the patient the physiology of pulmonary hypertension and potential symptoms. 3?permanent atrial fibrillation on chronic Coumadin therapy with no bleeding complications, heart rate is under control. 4?squamous cell carcinoma recently resected followed by dermatology 5?high risk medication with anticoagulation with no complications so far. 6?enlarged kidney discovered on CT scan of the abdomen. I requested the report. 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.43,428.0) (I50.43) Resolved Date: 28 May 2021 History of Centrilobular emphysema (492.8) (J43.2) Resolved Date: 28 May 2021 History of Difficulty breathing (786.09) (R06.89) Resolved Date: 28 May 2021 History of Exertional dyspnea (786.09) (R06.09) Resolved Date: 28 May 2021 History of malignant neoplasm of prostate (V10.46) (Z85.46) History of Hypomagnesemia (275.2) (E83.42) Resolved Date: 28 May 2021 History of Lower extremity edema (782.3) (R60.0) Resolved Date: 28 May 2021 Current Meds Medication NameInstruction Gemfibrozil 600 MG Oral TabletTAKE 1 TABLET BY MOUTH TWICE DAILY Pantoprazole Sodium 40 MG Oral Tablet Delayed ReleaseTAKE 1 TABLET BY MOUTH ONCE DAILY traMADol HCl - 50 MG Oral TabletTAKE TABLET PRN Warfarin Sodium 5 MG Oral TabletTAKE ONE TABLET BY MOUTH DAILY DIRECTED PER [facility] Patient did not bring medication list or bottles. Updated verbally with patient Allergies Medication Amoxicillin CAPS Angioedema;; Updated By: Ángela Doll; 02/13/2020 9:29:55 AM bacitracin Adverse Reaction; Updated By: Rebeca Sutton; 03/14/2021 7:41:03 AM neomycin Adverse Reaction; Updated By: Rebeca Sutton; 03/14/2021 7:41:03 AM Penicillins Adverse Reaction; Recorded By: Rebeca Sutton; 03/14/2021 7:41:03 AM Polymyxin B Sulfate SOLR Adverse Reaction; Updated By: Rebeca Sutton; 03/14/2021 7:41:03 AM Social History Problems Caffeine use (V49.89) (Z78.9) 2-3 coffees daily Consumes alcohol (V49.89) (Z78.9) daily Former smoker (V15.82) (Z87.891) QUIT 2000 1PPD No illicit drug use Review of Systems Constitutional: not feeling tired. Cardiovascular: no (more content not included)... Normal [facility] Tobacco Screening.on 023 Adult depression screening assessment No [facility] 250 DO Work Phone: Fall risk assessment a) No falls within the last year [facility] 250 DO Work Phone: Tobacco use status [facility] b) No [facility] 250 DO Work Phone: Activated partial thrombopla stin time (aPTT) in platelet poor plasma by coagulation aOrdered By: Gely Lin on 01-19-2023 aPTT Coag (PPP) [Time] 32.8 s 25.1-36.5 [facility] Bacterial blood cultureOrder ed By: Gely Lin on 01-19-2023 Bacteria identified Cx Nom (Bld) NO GROWTH [address] [facility] Basophils Auto (Bld) [#/Vol] Ordered By: Gely Lin on 01-19-2023 Basophils (Bld) [#/Vol] 0.0 10*3/uL 0.0-0.2 [facility] Basophils/100 WBC Auto (Bld) Ordered By: Gely Lin on 01-19-2023 Basophils/100 WBC (Bld) 0.4 % . [facility] Calcium [Mass/volume] in Ser um or PlasmaOrdered By: Gely Lin on 01-19-2023 Calcium [Mass/Vol] 9.0 mg/dL 8.6-10.3 [facility] Carbon dioxide, total [Moles /volume] in Serum or PlasmaOrdered By: Gely Lin on 01-19-2023 CO2 [Moles/Vol] 26.5 mmol/L 21.0-31.0 [facility] Chloride [Moles/volume] in S aime or PlasmaOrdered By: Gely Lin on 01-19-2023 Chloride [Moles/Vol] 100 mmol/L 98-107 [facility] Creatinine [Mass/volume] in Serum or PlasmaOrdered By: Gely Lin on 01-19-2023 Creatinine [Mass/Vol] 1.09 mg/dL 0.70-1.30 [facility] Eosinophils Auto (Bld) [#/Vo l]Ordered By: Gely Lin on 01-19-2023 Eosinophils (Bld) [#/Vol] 0.2 10*3/uL 0.0-0.45 [facility] Eosinophils/100 WBC Auto (Bl d)Ordered By: Gely Lin on 01-19-2023 Eosinophils/100 WBC (Bld) 2.7 % . [facility] Erythrocyte distribution wid th Auto (RBC) [Ratio]Ordered By: Gely Lin on 01-19-2023 Erythrocyte distribution width (RBC) [Ratio] 14.9 % 12.0-14.8 [facility] Glucose [Mass/volume] in Ser um or PlasmaOrdered By: Gely Lin on 01-19-2023 Glucose [Mass/Vol] 103 mg/dL 70-100 [facility] Comment on above: ADA recommended refe rence rangeRandom Glucose Reference Range is dependent on time and content of last meal. Glucose of more than 200 mg/dL in a nonstressed, ambulatory subject supports the diagnosis of Diabetes Mellitus. Hematocrit Auto (Bld) [Volum e fraction]Ordered By: Gely Lin on 01-19-2023 Hematocrit (Bld) [Volume fraction] 37.8 % 38.8-50.0 [facility] Hemoglobin [Mass/volume] in BloodOrdered By: Gely Lin on 01-19-2023 Hemoglobin (Bld) [Mass/Vol] 12.5 g/dL 13.0-17.0 [facility] Laboratory - CoagulationOrde red By: Gely Lin on 01-19-2023 PT Coag (PPP) [Time] 14.7 s 9.0-12.9 [facility] Lactate [Moles/volume] in Se rum or PlasmaOrdered By: Gely Lin on 01-19-2023 Lactate [Moles/Vol] 1.6 mmol/L 0.5-2.2 [facility] Leukocytes [#/volume] correc amparo for nucleated erythrocytes in Blood by Automated counOrdered By: Gely Lin on 01-19-2023 WBC corrected for nucl RBC Auto (Bld) [#/Vol] 5.6 10*3/uL 4.1-10.5 [facility] Lymphocytes Auto (Bld) [#/Vo l]Ordered By: Gely Lin on 01-19-2023 Lymphocytes (Bld) [#/Vol] 0.6 10*3/uL 1.00-4.8 [facility] Lymphocytes/100 WBC Auto (Bl d)Ordered By: Gely Lin on 01-19-2023 Lymphocytes/100 WBC (Bld) 10.2 % . [facility] MCH Auto (RBC) [Entitic mass ]Ordered By: Gely Lin on 01-19-2023 MCH (RBC) [Entitic mass] 28.7 pg 27.5-35.2 [facility] MCHC Auto (RBC) [Mass/Vol]Or dered By: Gely Lin on 01-19-2023 MCHC (RBC) [Mass/Vol] 33.0 g/dL 32.5-35.6 [facility] MCV Auto (RBC) [Entitic vol] Ordered By: Gely Lin on 01-19-2023 MCV (RBC) [Entitic vol] 87.0 fL 83.5-101 [facility] Monocyte distribution width [Entitic volume] in Blood by AutomatedOrdered By: Gely Lin on 01-19-2023 Monocyte distribution width Auto (Bld) [Entitic vol] 25.73 % 0.00-20.00 [facility] Comment on above: For adults in ED, MD W > 20.0 may be associated with a higher risk of sepsis during the first 12 hrs of hospital admission Monocytes Auto (Bld) [#/Vol] Ordered By: Gely Lin on 01-19-2023 Monocytes (Bld) [#/Vol] 0.6 10*3/uL 0.0-0.8 [facility] Monocytes/100 WBC Auto (Bld) Ordered By: Gely Lin on 01-19-2023 Monocytes/100 WBC (Bld) 10.1 % . [facility] Neutrophils Auto (Bld) [#/Vo l]Ordered By: Gely Lin on 01-19-2023 Neutrophils (Bld) [#/Vol] 4.3 10*3/uL 1.8-7.7 [facility] Neutrophils/100 WBC Auto (Bl d)Ordered By: Gely Lin on 01-19-2023 Neutrophils/100 WBC (Bld) 76.6 % . [facility] No Panel InformationOrdered By: Gely Lin on 01-19-2023 Estimated GFR (CKD-EPI) > 60.0 mL/Min [facility] Creatinine Clearance (Chem 48.65 [facility] Nucleated erythrocytes [Pres ence] in Blood by Automated countOrdered By: Gely Lin on 01-19-2023 Nucleated RBC Auto Ql (Bld) 0.0 /100{WBC} 0-0.5 [facility] Platelet mean volume Auto (B ld) [Entitic vol]Ordered By: Gely Lin on 01-19-2023 Platelet mean volume (Bld) [Entitic vol] 8.2 fL 6.6-10.1 [facility] Platelet poor plasma interna tional normalized ratio (INR) by coagulation assay (relatOrdered By: Gely Lin on 01-19-2023 INR Coag (PPP) [Relative time] 1.3 {INR} [facility] Comment on above: INR Therapeutic Rang e A) Pre- and Peroperative OAT started two weeks before surgery. NOT HIP SURGERY: 1.5 - 2.5 HIP SURGERY: 2 - 3B) Primary and secondary prevention of venous THROMBOSIS: 2 - 3C) Active venous thrombosis, pulmonary embolismand prevention of recurrent venous thrombosis: 2 - 3D) Prevention of arterial thromboembolismincluding patients with mechanical heart valves: 3 - 4.5 Platelets Auto (Bld) [#/Vol] Ordered By: Gely Lin on 01-19-2023 Platelets (Bld) [#/Vol] 202 10*3/uL 150-450 [facility] Potassium [Moles/volume] in Serum or PlasmaOrdered By: Gely Lin on 01-19-2023 Potassium [Moles/Vol] 3.6 mmol/L 3.5-5.1 [facility] RBC Auto (Bld) [#/Vol]Ordere d By: Gely Lin on 01-19-2023 RBC (Bld) [#/Vol] 4.35 10*6/uL 3.90-5.60 [facility] Serum or plasma anion gap de terminationOrdered By: Gely Lin on 01-19-2023 Anion gap [Moles/Vol] 13.1 mmol/L 6.0-15.0 [facility] Sodium [Moles/volume] in Ser um or PlasmaOrdered By: Gely Lin on 01-19-2023 Sodium [Moles/Vol] 136 mmol/L 136-145 [facility] Urea nitrogen [Mass/volume] in Serum or PlasmaOrdered By: Gely Lin on 01-19-2023 Urea nitrogen [Mass/Vol] 22 mg/dL 01-06 [facility] WBC Auto (Bld) [#/Vol]Ordere d By: Gely Lin on 01-19-2023 WBC (Bld) [#/Vol] 5.6 10*3/uL 4.1-10.5 [facility] Creatinine (Bld) [Mass/Vol]O rdered By: María Anderson on 01-13-2023 Creatinine [Mass/Vol] 1.0 mg/dL 0.6-1.3 [facility] Comment on above: ER/ESD physician is notified/shown all ISTAT results.Critical values may be confirmed by laboratory testing ifdeemed necessary by ER attending doctor. Alanine aminotransferase [En zymatic activity/volume] in Serum or PlasmaOrdered By: Trey العلي on 10-28-2022 ALT [Catalytic activity/Vol] 16 U/L [facility] Albumin [Mass/volume] in Ser um or Plasma by Bromocresol green (BCG) dye binding methoOrdered By: Trey العلي on 10-28-2022 Albumin BCG dye [Mass/Vol] 3.9 g/dL 3.5-5.7 [facility] Alkaline phosphatase [Enzyma tic activity/volume] in Serum or PlasmaOrdered By: Trey العلي on 10-28-2022 ALP [Catalytic activity/Vol] 81 U/L 34-104 [facility] Aspartate aminotransferase [ Enzymatic activity/volume] in Serum or PlasmaOrdered By: Trey العلي on 10-28-2022 AST [Catalytic activity/Vol] 26 U/L 13-39 [facility] Basophils Auto (Bld) [#/Vol] Ordered By: Trey العلي on 10-28-2022 Basophils (Bld) [#/Vol] 0.0 10*3/uL 0.0-0.2 [facility] Basophils/100 WBC Auto (Bld) Ordered By: Trey العلي on 10-28-2022 Basophils/100 WBC (Bld) 0.7 % . [facility] Bilirubin.total [Mass/volume ] in Serum or PlasmaOrdered By: Trey العلي on 10-28-2022 Bilirubin [Mass/Vol] 0.5 mg/dL 0.3-1.0 [facility] Calcium [Mass/volume] in Ser um or PlasmaOrdered By: Trey العلي on 10-28-2022 Calcium [Mass/Vol] 9.0 mg/dL 8.6-10.3 [facility] Carbon dioxide, total [Moles /volume] in Serum or PlasmaOrdered By: Trey العلي on 10-28-2022 CO2 [Moles/Vol] 27.2 mmol/L 21.0-31.0 [facility] Chloride [Moles/volume] in S aime or PlasmaOrdered By: Trey العلي on 10-28-2022 Chloride [Moles/Vol] 106 mmol/L 98-107 [facility] Cholesterol [Mass/volume] in Serum or PlasmaOrdered By: Trey العلي on 10-28-2022 Cholesterol [Mass/Vol] 160 mg/dL 140-200 [facility] Comment on above: Chol less than 200 m g/dl low riskChol 201-239 mg/dl borderline riskChol 240 mg/dl and greater high risk Cholesterol in LDL Calc [Mas s/Vol]Ordered By: Trey العلي on 10-28-2022 Cholesterol in LDL [Mass/Vol] 82 mg/dL 0-100 [facility] Comment on above: LDL ATP III CLASSIFI CATIONLDL less than 100 mg/dL OptimalLDL 100-129 mg/dL Near or above optimalLDL 130-159 mg/dL Borderline highLDL 160-189 mg/dL HighLDL greater than 189 mg/dL Very high Cholesterol in VLDL Calc [Ma ss/Vol]Ordered By: Trey العلي on 10-28-2022 Cholesterol in VLDL [Mass/Vol] 14 mg/dL [facility] Creatinine [Mass/volume] in Serum or PlasmaOrdered By: Trey العلي on 10-28-2022 Creatinine [Mass/Vol] 0.96 mg/dL 0.70-1.30 [facility] Eosinophils Auto (Bld) [#/Vo l]Ordered By: Trey العلي on 10-28-2022 Eosinophils (Bld) [#/Vol] 0.1 10*3/uL 0.0-0.45 [facility] Eosinophils/100 WBC Auto (Bl d)Ordered By: Trey العلي on 10-28-2022 Eosinophils/100 WBC (Bld) 2.2 % . [facility] Erythrocyte distribution wid th Auto (RBC) [Ratio]Ordered By: Trey العلي on 10-28-2022 Erythrocyte distribution width (RBC) [Ratio] 14.6 % 12.0-14.8 [facility] Globulin Calc (S) [Mass/Vol] Ordered By: Trye العلي on 10-28-2022 Globulin (S) [Mass/Vol] 2.8 g/dL [facility] Glucose [Mass/volume] in Ser um or PlasmaOrdered By: Trey العلي on 10-28-2022 Glucose [Mass/Vol] 109 mg/dL 70-100 [facility] Comment on above: ADA recommended refe rence rangeRandom Glucose Reference Range is dependent on time and content of last meal. Glucose of more than 200 mg/dL in a nonstressed, ambulatory subject supports the diagnosis of Diabetes Mellitus. Glucose mean value [Mass/vol ume] in Blood Estimated from glycated hemoglobinOrdered By: Trey العلي on 10-28-2022 Average glucose Estimated from glycated hemoglobin (Bld) [Mass/Vol] 120 mg/dL [facility] Hematocrit Auto (Bld) [Volum e fraction]Ordered By: Trey العلي on 10-28-2022 Hematocrit (Bld) [Volume fraction] 37.7 % 38.8-50.0 [facility] Hemoglobin A1c percentageOrd ered By: Trey العلي on 10-28-2022 HbA1c (Bld) [Mass fraction] 5.8 % 4.3-5.6 [facility] Comment on above: Increased risk for d iabetes: 5.7 - 6.4diabetes: >6.4glycemic control for adults with diabetes: <7.0 Hemoglobin [Mass/volume] in BloodOrdered By: Trey العلي on 10-28-2022 Hemoglobin (Bld) [Mass/Vol] 12.5 g/dL 13.0-17.0 [facility] Leukocytes [#/volume] correc amparo for nucleated erythrocytes in Blood by Automated counOrdered By: Trey العلي on 10-28-2022 WBC corrected for nucl RBC Auto (Bld) [#/Vol] 5.1 10*3/uL 4.1-10.5 [facility] Lymphocytes Auto (Bld) [#/Vo l]Ordered By: Trey العلي on 10-28-2022 Lymphocytes (Bld) [#/Vol] 1.2 10*3/uL 1.00-4.8 [facility] Lymphocytes/100 WBC Auto (Bl d)Ordered By: Trey العلي on 10-28-2022 Lymphocytes/100 WBC (Bld) 23.6 % . [facility] MCH Auto (RBC) [Entitic mass ]Ordered By: Trey العلي on 10-28-2022 MCH (RBC) [Entitic mass] 29.6 pg 27.5-35.2 [facility] MCHC Auto (RBC) [Mass/Vol]Or dered By: Trey العلي on 10-28-2022 MCHC (RBC) [Mass/Vol] 33.2 g/dL 32.5-35.6 [facility] MCV Auto (RBC) [Entitic vol] Ordered By: Trey العلي on 10-28-2022 MCV (RBC) [Entitic vol] 89.1 fL 83.5-101 [facility] Monocytes Auto (Bld) [#/Vol] Ordered By: Trey العلي on 10-28-2022 Monocytes (Bld) [#/Vol] 0.7 10*3/uL 0.0-0.8 [facility] Monocytes/100 WBC Auto (Bld) Ordered By: Trey العلي on 10-28-2022 Monocytes/100 WBC (Bld) 14.3 % . [facility] Neutrophils Auto (Bld) [#/Vo l]Ordered By: Trey العلي on 10-28-2022 Neutrophils (Bld) [#/Vol] 3.0 10*3/uL 1.8-7.7 [facility] Neutrophils/100 WBC Auto (Bl d)Ordered By: Trey العلي on 10-28-2022 Neutrophils/100 WBC (Bld) 59.2 % . [facility] No Panel InformationOrdered By: Trey العلي on 10-28-2022 Estimated GFR (CKD-EPI) > 60.0 mL/Min [facility] Creatinine Clearance (Chem N/A [facility] Nucleated erythrocytes [Pres ence] in Blood by Automated countOrdered By: Trey العلي on 10-28-2022 Nucleated RBC Auto Ql (Bld) 0.0 /100{WBC} 0-0.5 [facility] Platelet mean volume Auto (B ld) [Entitic vol]Ordered By: Trey العلي on 10-28-2022 Platelet mean volume (Bld) [Entitic vol] 8.5 fL 6.6-10.1 [facility] Platelets Auto (Bld) [#/Vol] Ordered By: Trey العلي on 10-28-2022 Platelets (Bld) [#/Vol] 160 10*3/uL 150-450 [facility] Potassium [Moles/volume] in Serum or PlasmaOrdered By: Trey العلي on 10-28-2022 Potassium [Moles/Vol] 4.2 mmol/L 3.5-5.1 [facility] Protein [Mass/volume] in Ser um or PlasmaOrdered By: Trey العلي on 10-28-2022 Protein [Mass/Vol] 6.7 g/dL 6.4-8.9 [facility] RBC Auto (Bld) [#/Vol]Ordere d By: Trey العلي on 10-28-2022 RBC (Bld) [#/Vol] 4.23 10*6/uL 3.90-5.60 [facility] Serum or plasma albumin/glob ulin mass ratioOrdered By: Trey العلي on 10-28-2022 Albumin/Globulin [Mass ratio] 1.4 {ratio} [facility] Serum or plasma anion gap de terminationOrdered By: Trey العلي on 10-28-2022 Anion gap [Moles/Vol] 13.0 mmol/L 6.0-15.0 [facility] Serum or plasma high density lipoprotein (HDL) cholesterol measurementOrdered By: Trey العلي on 10-28-2022 Cholesterol in HDL [Mass/Vol] 64 mg/dL 29-71 [facility] Comment on above: HDL CHOL ATP-III CLA SSIFICATION Cardiovascular RiskHDL > or equal to 60 mg/dL LOWHDL < 40 mg/dL HIGH Serum or plasma total choles terol/high density lipoprotein (HDL) cholesterol mass ratOrdered By: Trey العلي on 10-28-2022 Cholesterol.total/Chol esterol in HDL [Mass ratio] 2.5 {ratio} <5.0 [facility] Sodium [Moles/volume] in Ser um or PlasmaOrdered By: Trey العلي on 10-28-2022 Sodium [Moles/Vol] 142 mmol/L 136-145 [facility] Triglyceride [Mass/volume] i n Serum or PlasmaOrdered By: Trey العلي on 10-28-2022 Triglyceride [Mass/Vol] 70 mg/dL 0-149 [facility] Comment on above: TRIG ATP III CLASSIF ICATIONTRIG less than 150 mg/dL NormalTRIG 150-199 mg/dL Borderline highTRIG 200-500 mg/dL High TRIG greater than 500 mg/dL Very highStandard traceable to the Center for Disease Conrtrol and Prevention (CDC) test method. Urate [Mass/volume] in Serum or PlasmaOrdered By: Trey العلي on 10-28-2022 Urate [Mass/Vol] 7.5 mg/dL 2.4-7.6 [facility] Urea nitrogen [Mass/volume] in Serum or PlasmaOrdered By: Trey العلي on 10-28-2022 Urea nitrogen [Mass/Vol] 24 mg/dL 7-25 [facility] WBC Auto (Bld) [#/Vol]Ordere d By: Trey العلي on 10-28-2022 WBC (Bld) [#/Vol] 5.1 10*3/uL 4.1-10.5 [facility] BNPon 10-08-2022 Natriuretic peptide B (Bld) [Mass/Vol] 1354.0 pg/mL Normal <=1,800.0 [facility] Comment on above: Performed By: #### H STROPN, BNP, CK, CMP #### [facility] [address] [address] [address] Pedro Degroot CBC AUTO DIFFon 10-08-2022 BASO # 0.0 103/ul Normal 0.0-0.1 [facility] Comment on above: Performed By: #### C BC ####[facility] [address] [id number]. Pedro Degroot Basophils/100 WBC (Bld) 0.8 % Normal 0.2-2.0 [facility] Comment on above: Performed By: #### C BC ####[facility] [address] [id number]. Pedro Degroot EO # 0.1 103/ul Normal 0.0-0.7 [facility] Comment on above: Performed By: #### C BC ####[facility] [address] [id number] Degroot Eosinophils/100 WBC (Bld) 1.7 % Normal 0.9-7.0 [facility] Comment on above: Performed By: #### C BC ####[facility] [address] [id number] Degroot Erythrocyte distribution width (RBC) [Ratio] 14.1 % Normal 11.0-15.0 [facility] Comment on above: Performed By: #### C BC ####[facility] [address] [address]Dr. Pedro Degroot Hematocrit (Bld) [Volume fraction] 40.0 % Critically low 42.0-54.0 [facility] Comment on above: Performed By: #### C BC ####[facility] [address] [address]Dr. Pedro Degroot Hemoglobin (Bld) [Mass/Vol] 12.7 g/dL Critically low 14.0-18.0 [facility] Comment on above: Performed By: #### C BC ####[facility] [address] [place], [place] [address]Dr. Pedro Degroot IG # 0.06 10e3/ul Critically high 0.00-0.03 [facility] Comment on above: Performed By: #### C BC ####[facility] [address] [place], [place] [address]Dr. Pedro Degroot IG % 1.2 % Critically high 0.0-0.5 [facility] Comment on above: Performed By: #### C BC ####[facility] [address] [place], [place] [address]Dr. Pedro Degroot LYMPH # 0.9 103/ul Critically low 1.2-3.8 [facility] Comment on above: Performed By: #### C BC ####[facility] [address] [address]Dr. Pedro Degroot Lymphocytes/100 WBC (Bld) 17.6 % Critically low 20.5-60.0 [facility] Comment on above: Performed By: #### C BC ####[facility] [address] [place], [place] [address]Dr. Pedro Degroot MANUAL DIFF REQ NO Normal [facility] Comment on above: Performed By: #### C BC ####[facility] [address] [place], [place] [address]Dr. Charoaki Degroot MCH (RBC) [Entitic mass] 29.1 pg Normal 25.9-34.0 [facility] Comment on above: Performed By: #### C BC ####[facility] [address] [id number]. Pedro Degroot MCHC (RBC) [Mass/Vol] 31.8 g/dL Normal 29.9-35.2 [facility] Comment on above: Performed By: #### C BC ####[facility] [address] [id number]. Pedro Degroot MCV (RBC) [Entitic vol] 91.5 fL Normal 80.0-94.0 [facility] Comment on above: Performed By: #### C BC ####[facility] [address] [place], [place] [id number]. Pedro Zane MONO # 0.7 103/ul Normal 0.3-0.8 [facility] Comment on above: Performed By: #### C BC ####[facility] [address] [place], [place] [address]Dr. Pedro Degroot Monocytes/100 WBC (Bld) 12.6 % Critically high 1.7-12.0 [facility] Comment on above: Performed By: #### C BC ####[facility] [address] [place], [place] [address]Dr. Pedro Degroot NEUT # 3.4 103/ul Normal 1.4-6.5 [facility] Comment on above: Performed By: #### C BC ####[facility] [address] [place], [place] [address]Dr. Pedro Degroot Neutrophils/100 WBC (Bld) 66.1 % Normal 43.0-75.0 [facility] Comment on above: Performed By: #### C BC ####[facility] [address] [place], [place] [address]Dr. Pedro Degroot Platelet mean volume (Bld) [Entitic vol] 10.8 fL Normal 9.5-13.5 [facility] Comment on above: Performed By: #### C BC ####[facility] [address] [place], [place] [id number]. Pedro Degroot PLT 170 103/ul Normal 150-450 [facility] Comment on above: Performed By: #### C BC ####[facility] [address] [place], [place] [address]Pt. Pedro Degroot RBC 4.37 106/ul Critically low 4.70-6.10 [facility] Comment on above: Performed By: #### C BC ####[facility] [address] [place], [place] [address]Sk. Pedro Degroot WBC 5.2 103/ul Normal 4.0-11.0 [facility] Comment on above: Performed By: #### C BC ####[facility] [address] [place], [place] [address]Yx. Pedro Degroot CPKon 10-08-2022 CK [Catalytic activity/Vol] 89 U/L Normal 39-308 [facility] Comment on above: Performed By: #### H STROPN, BNP, CK, CMP ####[facility] [address] [place], [place] [address] STROKE HEAD WOon 10-09-19 CT STROKE HEAD WO TITLE: CT STROKE HEAD WO COMPARISON: None. CLINICAL HISTORY: Dizziness. Weakness. Fall TECHNIQUE: 3 mm axial images without contrast. Automated exposure control was utilized. Dose reduction techniques were achieved by using automated exposure control and/or adjustment of mA and/or kV according to patient size and/or use of iterative reconstruction technique. FINDINGS: There is parenchymal volume loss and mild hypodensity in the periventricular white matter There is no mass, mass effect, parenchymal hemorrhage, nor subarachnoid hemorrhage. There is a 4 mm hypodensity in the left caudate head, not present in 2018 The extra-axial and extracranial structures appear normal. The CSF spaces are unremarkable. The skeletal structures are intact. 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 NOT PRESENT IN 2018. NO ACUTE INTRACRANIAL FINDINGS BY CT HEAD WITHOUT CONTRAST DIFFUSION-WEIGHTED MRI COULD FURTHER ASSESS CLINICALLY WARRANTED Electronically authenticated by: OSITO MATHIS Date: 2022-10-08 14:12 Normal [facility] PH VENOUS BLOODon 10-08-2022 PCO2 VENOUS 49.9 mmHg Normal 40.0-52.0 [facility] Comment on above: Performed By: #### P HVEN #### [facility] [address] [place], [place] [address] Dr. Pedro Degroot pH VENOUS 7.348 Normal 7.330-7.43 0 [facility] Comment on above: Performed By: #### P HVEN #### [facility] [address] [place] [address] [address] Pedro Degroot POINT OF CARE GLUCOSEon 09-14 Glucose [Mass/Vol] 106 mg/dL Normal 74-106 [facility] Comment on above: Performed By: #### P OCGLUC #### [facility] [address] [place] [address] [address] Pedro Degroot PROF 14(COMP METB)on 023 Albumin [Mass/Vol] 3.7 g/dL Normal 3.4-5.0 [facility] Comment on above: Performed By: #### H STROPN, BNP, CK, CMP #### [facility] [address] [address] [address] Pedro Degroot Albumin/Globulin [Mass ratio] 0.9 {ratio} Normal [facility] Comment on above: Performed By: #### H STROPN, BNP, CK, CMP #### [facility] [address] [place] [address] [address] Pedro Degroot ALP [Catalytic activity/Vol] 99 U/L Normal 46-116 [facility] Comment on above: Performed By: #### H STROPN, BNP, CK, CMP #### [facility] [address] [place] [address] [address] Pedro Degroot ALT [Catalytic activity/Vol] 30 U/L Normal 16-63 [facility] Comment on above: Performed By: #### H STROPN, BNP, CK, CMP #### [facility] [address] [place] [address] [address] Pedro Degroot Anion gap [Moles/Vol] 13.6 mmol/L Normal [facility] Comment on above: Performed By: #### H STROPN, BNP, CK, CMP #### [facility] [address] [place] [address] [address] Pedro Degroot AST [Catalytic activity/Vol] 35 U/L Normal 15-37 [facility] Comment on above: Performed By: #### H STROPN, BNP, CK, CMP #### [facility] [address] [place] [address] [address] Pedro Degroot Bilirubin [Mass/Vol] 0.4 mg/dL Normal 0.2-1.0 [facility] Comment on above: Performed By: #### H STROPN, BNP, CK, CMP #### [facility] [address] [place] [address] Dr. Pedro Degroot Calcium [Mass/Vol] 9.7 mg/dL Normal 8.5-10.1 [facility] Comment on above: Performed By: #### H STROPN, BNP, CK, CMP #### [facility] [address] [place] [address] Dr. Pedro Degroot Chloride [Moles/Vol] 103 mmol/L Normal 98-107 [facility] Comment on above: Performed By: #### H STROPN, BNP, CK, CMP #### [facility] [address] [place] [address] Dr. Pedro Degroot CO2 [Moles/Vol] 27.8 mmol/L Normal 21.0-32.0 [facility] Comment on above: Performed By: #### H STROPN, BNP, CK, CMP #### [facility] [address] [place] [address] Dr. Pedro eDgroot Creatinine [Mass/Vol] 0.86 mg/dL Normal 0.70-1.30 [facility] Comment on above: Performed By: #### H STROPN, BNP, CK, CMP #### [facility] [address] [place] [address] Dr. Pedro Degroot EGFR-AF ERITREAN >60 Normal >=60 [facility] Comment on above: Performed By: #### H STROPN, BNP, CK, CMP #### [facility] [address] [place] [address] Dr. Pedro Degroot EGFR-NON AF ERITREAN >60 Normal >=60 [facility] Comment on above: Performed By: #### H STROPN, BNP, CK, CMP #### [facility] [address] [place] [address] [address] Pedro Degroot Globulin (S) [Mass/Vol] 4.2 g/dL Normal [facility] Comment on above: Performed By: #### H STROPN, BNP, CK, CMP #### [facility] [address] [place] [address] [address] Pedro Degroot Glucose [Mass/Vol] 110 mg/dL Critically high 74-106 [facility] Comment on above: Performed By: #### H STROPN, BNP, CK, CMP #### [facility] [address] [place] [address] [address] Pedro Degroot Potassium [Moles/Vol] 4.4 mmol/L Normal 3.5-5.1 [facility] Comment on above: Performed By: #### H STROPN, BNP, CK, CMP #### [facility] [address] [place] [address] Dr. Pedro Degroot Protein [Mass/Vol] 7.9 g/dL Normal 6.4-8.2 [facility] Comment on above: Performed By: #### H STROPN, BNP, CK, CMP #### [facility] [address] [place] [address] [address] Pedro Degroot Sodium [Moles/Vol] 140 mmol/L Normal 136-145 [facility] Comment on above: Performed By: #### H STROPN, BNP, CK, CMP #### [facility] [address] [place] [address] [address] Pedro Degroot Urea nitrogen [Mass/Vol] 27.0 mg/dL Critically high 7.0-18.0 [facility] Comment on above: Performed By: #### H STROPN, BNP, CK, CMP #### [facility] [address] [place] [address] Dr. Pedro Degroot Urea nitrogen/Creatinine [Mass ratio] 31.4 mg/mg Normal [facility] Comment on above: Performed By: #### H STROPN, BNP, CK, CMP #### [facility] [address] [place] [address] Dr. Pedro Degroot PROTIMEon 10-08-2022 INR Coag (PPP) [Relative time] 1.62 {INR} Normal [facility] Comment on above: Performed By: #### P T #### [facility] [address] [place] [address] [address] Pedro Degroot INR GUIDELINES SEE BELOW Normal [facility] Comment on above: Result Comment: JARVIS RED INR: 2.0 - 3.0 CONDITIONS NOT LISTED BELOW 2.5 - 3.5 FOR PROSTHETIC HEART VALVE REPLACEMENT 2.5 - 3.5 RECURRENT THROMBOSIS Performed By: #### P T #### [facility] [address] [place] [address] [address] Pedro Degroot PT Coag (PPP) [Time] 16.7 s Critically high 9.0-11.6 [facility] Comment on above: Performed By: #### P T #### [facility] [address] [place] [address] [address] Pedro Degroot TROPONIN, HIGH SENSITIVITYon 10-08-2022 HSTROP 21.3 pg/mL Normal 4.0-76.1 [facility] Comment on above: Result Comment: CUT- OFF POINTS HAVE BEEN ESTABLISHED BASED ON THE FOURTH UNIVERSAL DEFINITIONS OF MYOCARDIAL INFARCTION. THE UPPER REFERENCE LIMIT (URL) OF TROPONIN, DEFINED THE 99TH PERCENTILE OF cTnI DISTRIBUTION IN A REFERENCE POPULATION, HAS BEEN CONFIRMED THE DECISION THRESHOLD FOR PR DIAGNOSIS. Performed By: #### H STROPN, BNP, CK, CMP #### [facility] [address] [place] [address] [address] Pedro Degroot POINT OF CARE GLUCOSEon Glucose [Mass/Vol] 111 mg/dL Critically high 74-106 [facility] Comment on above: Performed By: #### P OCGLUC ####[facility] [id number] [place] [id number]. Pedro Degroot PROTIMEon 06-17-2022 INR Coag (PPP) [Relative time] 1.14 {INR} Normal [facility] Comment on above: Performed By: #### P T #### [facility] [address] [place] [address] [address] Pedro Degroot INR GUIDELINES SEE BELOW Normal [facility] [place] [facility] Comment on above: Result Comment: JARVIS RED INR: 2.0 - 3.0 CONDITIONS NOT LISTED BELOW 2.5 - 3.5 FOR PROSTHETIC HEART VALVE REPLACEMENT 2.5 - 3.5 RECURRENT THROMBOSIS Performed By: #### P T #### [facility] [address] [place] [address] [address] Pedro Degroot PT Coag (PPP) [Time] 12.2 s Critically high 9.0-11.6 [facility] Comment on above: Performed By: #### P T #### [facility] [address] [place] [address] [address] Pedro Degroot POINT OF CARE GLUCOSEon 03-16 Glucose [Mass/Vol] 104 mg/dL Normal 74-106 [facility] Comment on above: Performed By: #### P OCGLUC ####[facility] [id number] [place] [address]Dr. Pedro Degroot PROTIMEon 04-08-2022 INR Coag (PPP) [Relative time] 1.08 {INR} Normal [facility] Comment on above: Performed By: #### P T ####[facility] [address] [place] [address]Dr. Pedro Degroot INR GUIDELINES SEE BELOW Normal [facility] Comment on above: Result Comment: JARVIS RED INR: 2.0 - 3.0 CONDITIONS NOT LISTED BELOW 2.5 - 3.5 FOR PROSTHETIC HEART VALVE REPLACEMENT 2.5 - 3.5 RECURRENT THROMBOSIS Performed By: #### P T ####[facility] [address] [place] [address]Dr. Pedro Degroot PT Coag (PPP) [Time] 11.6 s Normal 9.0-11.6 [facility] Comment on above: Performed By: #### P T ####[facility] [address] [place] [address]Dr. Pedro Degroot XR Shoulder Complete Right*o n 03-31-2022 XR Shoulder Complete Right* HISTORY: Patient felt a pop in the shoulder after swinging a heavy object. Decreased range of motion. COMPARISON: None available TECHNIQUE: AP internal, external rotation views , axillary, and a Y view of the shoulder obtained. FINDINGS: No acute osseous abnormality. Mild degenerative changes of the acromioclavicular and glenohumeral joints. Soft tissues are within normal limits. IMPRESSION: No acute osseous abnormality. Mild degenerative changes. Report reported and signed by María Madison on 03/31/2022 1526 Normal [facility] [employer] Echocardiogramon 02-20-2022 Echocardiography [facility] [address] [place] [address], [address], [place] [address] TRANSTHORACIC ECHOCARDIOGRAM REPORT Patient Name: FANI Johnson MAGGI Reading Physician: [id number] Bonita Kingsley MD, [facility] Study Date: 02/20/2022 Referring [id number] BONITA KINGSLEY Physician: MRN/PID: [id number] PCP: Fer العلي MD Accession/Order#: [id number] Department [facility] Location: Date of : 1935 Fellow: Gender: M Nurse: Admit Date: Vp Data: Maria Eugenia Lin [facility] Height: 175.26 cm CC Report to: Weight: 80.29 kg Study Type: Echocardiogram BSA: 1.96 m2 Blood Pressure: 152 /88 mmHg Diagnosis/ICD: 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 PHYSICIAN INTERPRETATION: Left Ventricle: Left ventricular systolic function is low normal, with an estimated ejection fraction of 50-55%. The left ventricular cavity size is mildly dilated. Left ventricular diastolic filling was not assessed. Left Atrium: The left atrium is severely dilated. Right Ventricle: The right ventricle is upper limits of normal in size. There is low normal right ventricular systolic function. Right Atrium: The right atrium is upper limits of normal in size. Aortic Valve: The aortic valve appears abnormal. There is trivial aortic valve regurgitation. The peak instantaneous gradient of the aortic valve is 17.0 mmHg. The mean gradient of the aortic valve is 9.0 mmHg. There is a TAVR in good position with no significant stenosis with only trivial perivalvular leak. Mitral Valve: The mitral valve is mildly thickened. There is moderate mitral annular calcification. There is mild mitral valve regurgitation. Tricuspid Valve: The tricuspid valve is structurally normal. There is mild to moderate tricuspid regurgitation. Calculate RVSP 49 mmHg consistent with moderate pulmonary hypertension. Pulmonic Valve: The pulmonic valve is structurally normal. There is trace pulmonic valve regurgitation. Pericardium: There is no pericardial effusion noted. Aorta: The aortic root is normal. Systemic Veins: The inferior vena cava appears moderately dilated. In comparison to the previous echocardiogram(s): When compared to a study from 02/20/2021, there has been no significant interval changes, patient remainsed in atrial fibrillation throughout the study. CONCLUSIONS: 1. Left ventricular systolic function is low normal with a 50-55% estimated ejection fraction. 2. There is low normal right ventricular systolic function. 3. The left atrium is severely dilated. 4. There is moderate mitral annular calcification. 5. Calculate RVSP 49 mmHg consistent with moderate pulmonary hypertension. 6. Mild to moderate tricuspid regurgitation. 7. Aortic valve appears abnormal. 8. There is a TAVR in good position with no significant stenosis with only trivial perivalvular leak. 9. The inferior vena cava appears moderately dilated. 10. When compared to a study from 02/20/2021, there has been no significant interval changes, patient remainsed in atrial fibrillation throughout the study. QUANTITATIVE DATA SUMMARY: 2D MEASUREMENTS: Normal Ranges: Ao Root d: 3.70 cm (2.0-3.7cm) LAs: 5.90 cm (2.7-4.0cm) RVIDd: 3.70 cm (0.9-3.6cm) IVSd: 1.00 cm (0.6-1.1cm) LVPWd: 1.10 cm (0.6-1.1cm) LVIDd: 6.10 cm (3.9-5.9cm) LVIDs: 4.70 cm LV Mass Index: 137.9 g/m2 LV % FS 23.0 % LV SYSTOLIC FUNCTION BY 2D PLANIMETRY (MOD): Normal Ranges: EF-A4C View: 44.6 % (>55%) LV DIASTOLIC FUNCTION: Normal Ranges: MV Peak E: 1.21 m/s (0.7-1.2 m/s) MITRAL VALVE: Normal Ranges: MV Vmax: 1.49 m/s (<1.3m/s) MV peak P.9 mmHg (<5mmHg) MV mean P.3 mmHg (<48mmHg) MITRAL INSUFFICIENCY: Normal Ranges: MR Vmax: 529.33 cm/s dP/dt: 1045 mmHg/s (>1200mmHg/sec) AORTIC VALVE: Normal Ranges: AoV Vmax: 2.06 m/s (<1.7m/s) AoV Peak P.0 mmHg (<20mmHg) AoV Mean P.0 mmHg (1.7-11.5mmHg) LVOT Max Johnny: 0.68 m/s (<1.1m/s) AoV VTI: 40.30 cm (18-25cm) LVOT VTI: 14.30 cm LVOT Diameter: 2.50 cm (1.8-2.4cm) AoV Area, VTI: 1.74 cm2 (2.5-5.5cm2) AoV Area,Vmax: 1.63 cm2 (2.5-4.5cm2) AoV Dimensionless Index: 0.35 AORTIC INSUFFICIENCY: AI Vmax: 3.43 m/s AI Half-time: 626 msec AI Decel Rate: 219.67 cm/s2 TRICUSPID VALVE/RVSP: Normal Ranges: Peak TR Velocity: 3.14 m/s RV Syst Pressure: 42.4 mmHg (< 30mmHg) PULMONIC VALVE: Normal Ranges: PV Max Johnny: 0.8 m/s (0.6-0.9m/s) PV Max P.5 mmHg PIEDV: 1.87 m/s PADP: 16.9 mmHg [id number] Bonita Kingsley MD, FACC Electronically signed on 02/25/2022 at 5:39:24 PM Final Normal [facility] Tobacco Screening.on 022 Adult depression screening assessment No [facility] DO Work Phone: Fall risk assessment a) No falls within the last year [facility] DO Work Phone: Tobacco use status CP b) No [facility] 250 DO Work Phone: Bacteria identified Aer cx N om (Unsp spec)Ordered By: Rubio Pineda on 02-05-2022 Superficial Wound Culture Proteus mirabilis [facility] XR LSPINE W_OBLS AND FLEX_EX Ton 01-02-2022 XR LSPINE W_OBLS AND FLEX_EXT EXAMINATION: XR LSPINE W_OBLS AND FLEX_EXT HISTORY: Low back pain COMPARISON: No relevant comparison available. FINDINGS: BONES: 5 mm anterolisthesis of L4 in relation to L5. Mild degenerative spondylosis. Moderate diffuse facet osteophytes arthropathy most significant at L5-S1 DISC SPACES: Multilevel disc space narrowing most significant L4-L5 PARASPINOUS: Negative. No paraspinous abnormality is seen. OTHER: Bilateral total hip arthroplasty. Vascular calcifications. No transient spondylolisthesis with flexion or extension IMPRESSION: Moderate degenerative changes 5 mm anterolisthesis of L5 on S1 No dynamic instability Electronically authenticated by: ORLY WOLFE Date: 2022-01-02 17:00 Normal [facility] Tobacco Screening.on 021 Fall risk assessment b) One or more fall s in the last year [facility] [employer] y 250 DO Work Phone: Tobacco use status CPHS b) No [facility] [employer] y 250 DO Work Phone: XR hip RT min 2V(w/wo pelvis )*on 03-19-2021 XR hip RT min 2V(w/wo pelvis)* [facility] [employer] Other XR hip RT min 2V(w/wo pelvis)* [facility] [place] [employer] Other XR hip RT min 2V(w/wo pelvis)* [address] [place] [address] [employer] Other XR hip RT min 2V(w/wo pelvis)* [place] [address] [employer] Other XR hip RT min 2V(w/wo pelvis)* XRay Report [employer] Other XR hip RT min 2V(w/wo pelvis)* Signed [employer] Other XR hip RT min 2V(w/wo pelvis)* Patient: Fani Chua MR#: [id number] [employer] Other XR hip RT min 2V(w/wo pelvis)* : 1935 Acct:[id number] [employer] Other XR hip RT min 2V(w/wo pelvis)* Age/Sex: 85 / M ADM Date: 03/19/21 [employer] Other XR hip RT min 2V(w/wo pelvis)* Loc: [facility] Room: Type: [facility] [employer] Other XR hip RT min 2V(w/wo pelvis)* Attending Dr: Fani Johnston MD [employer] Other XR hip RT min 2V(w/wo pelvis)* Ordering Provider: Fani Johnston MD [employer] Other XR hip RT min 2V(w/wo pelvis)* Date of Service: 03/19/21 [employer] Other XR hip RT min 2V(w/wo pelvis)* XR/XR hip RT min 2V(w/wo pelvis)*: History of total replacement of right [employer] Other XR hip RT min 2V(w/wo pelvis)* hip [employer] Other XR hip RT min 2V(w/wo pelvis)* Copies to: Fani Johnston MD [employer] Other XR hip RT min 2V(w/wo pelvis)* RIGHT HIP - 2 views: [employer] Other XR hip RT min 2V(w/wo pelvis)* CLINICAL HISTORY: Follow-up knee replacement. [employer] Other XR hip RT min 2V(w/wo pelvis)* COMPARISON: 01/30/2021 [employer] Other XR hip RT min 2V(w/wo pelvis)* AP and frog-lateral views were obtained. There is osteopenia. A hip prosthesis is again visualized. [employer] Other XR hip RT min 2V(w/wo pelvis)* The hardware appears intact and unchanged in prior. There is no developing fracture or dislocation. [employer] Other XR hip RT min 2V(w/wo pelvis)* There are no significant soft tissue abnormalities. Hemostasis clips are again visualized within the [employer] Other XR hip RT min 2V(w/wo pelvis)* pelvis and near the greater trochanter. [employer] Other XR hip RT min 2V(w/wo pelvis)* XR/XR hip RT min 2V(w/wo pelvis)* [employer] Other XR hip RT min 2V(w/wo pelvis)* IMPRESSION: [employer] Other XR hip RT min 2V(w/wo pelvis)* STABLE APPEARANCE OF HIP REPLACEMENT. [employer] Other XR hip RT min 2V(w/wo pelvis)* Impression dictated by: Cyn Llamas M.D.03/19/2021 12:46 PM [employer] Other XR hip RT min 2V(w/wo pelvis)* Dictation Location: [facility] [employer] Other XR hip RT min 2V(w/wo pelvis)* Transcribed By: HENRRY 03/19/21 1246 [employer] Other XR hip RT min 2V(w/wo pelvis)* Dictated By: Cyn Llamas MD 03/19/21 5400 [employer] Other XR hip RT min 2V(w/wo pelvis)* Signed By: [employer] Other XR hip RT min 2V(w/wo pelvis)* 03/19/21 1246 [facility] [email or web address] Other Complete Blood Count + Diffevelina boyce 02-24-2020 Basophils/100 WBC (Bld) 0.7 % 0.0 - 2.0 [facility] [address] [place] Work Phone: Erythrocyte distribution width (RBC) [Ratio] 13.3 % See Below [facility] [place] Work Phone: Comment on above: Reference Range: 11. 5 - 14.5 Hematocrit (Bld) [Volume fraction] 39.8 % below low threshold See Below [facility] [place] [facility] [address] [place] Work Phone: Comment on above: Reference Range: 41. 0 - 52.0 Hemoglobin (Bld) [Mass/Vol] 12.5 g/dL below low threshold See Below [facility] [place] [facility] [address] [place] Work Phone: Comment on above: Reference Range: 13. 5 - 17.5 Lymphocytes/100 WBC (Bld) 18.0 % See Below [facility] [address] [place] Work Phone: Comment on above: Reference Range: 13. 0 - 44.0 MCHC (RBC) [Mass/Vol] 31.4 g/dL below low threshold See Below [facility] [address] [place] Work Phone: Comment on above: Reference Range: 32. 0 - 36.0 MCV (RBC) [Entitic vol] 96 fL 80 - 100 [facility] [place] [facility] [address] [place] Work Phone: Monocytes/100 WBC (Bld) 11.3 % 2.0 - 10.0 [facility] [place] [facility] [address] [place] Work Phone: Neutrophils/100 WBC (Bld) 66.1 % See Below [facility] [address] [place] Work Phone: Comment on above: Reference Range: 40. 0 - 80.0 Platelets (Bld) [#/Vol] 268 10*3/uL 150 - 450 [facility] [place] [address] [place] Work Phone: RBC (Bld) [#/Vol] 4.14 {x10E12/L} below low threshold See Below [facility] [place] [address] [place] Work Phone: Comment on above: Reference Range: 4.5 0 - 5.90 WBC (Bld) [#/Vol] 8.7 10*3/uL 4.4 - 11.3 -Car diology -[facility] [address] [place] [place] Work Phone: Complete Blood Count + Differential 0.6 % 0.0 - 0.9 [facility] Dominick [address] [place] Work Phone: Comment on above: Immature Granulocyte Count (IG) includes promyelocytes, myelocytes and metamyelocytes but does not include bands. Percent differential counts (%) should be interpreted in the context of the absolute cell counts (cells/L). Complete Blood Count + Differential 3.3 % 0.0 - 6.0 [facility] Dominickigor [address] [place] Work Phone: Complete Blood Count + Differential 5.72 {x10E9/L} above high threshold See Below [facility] Dominick Pav[place] [place] Work Phone: Comment on above: Reference Range: 1.6 0 - 5.50 Complete Blood Count + Differential 1.56 {x10E9/L} See Below [facility] Dominick Александрavocarrotlizette [address] [place] Work Phone: Comment on above: Reference Range: 0.8 0 - 3.00 Complete Blood Count + Differential 0.98 {x10E9/L} above high threshold See Below [facility] Dominick [facility]рrapp[facility] hospitalliz[facility] [address] [place] Work Phone: Comment on above: Reference Range: 0.0 5 - 0.80 Complete Blood Count + Differential 0.29 {x10E9/L} See Below [facility] Dominick А[facility]ександрrappah[facility] hospitalon [address] [place] Work Phone: Comment on above: Reference Range: 0.0 0 - 0.40 Complete Blood Count + Differential 0.06 {x10E9/L} See Below [facility] [place]THER[place] [address] [place] Work Phone: Comment on above: Reference Range: 0.0 0 - 0.10 Laboratory - Chemistry and C hemistry - challengeon 02-24-2020 Anion gap [Moles/Vol] 14 mmol/L 10 - 20 [facility] [address] [place] Work Phone: Calcium [Mass/Vol] 9.7 mg/dL 8.6 - 10.3 [facility] diology -[facility] [place] [employer] [address] [place] Work Phone: Chloride [Moles/Vol] 103 mmol/L 98 - 107 [facility] ardiology -[facility] [place] [address] [place] Work Phone: CO2 [Moles/Vol] 29 mmol/L 21 - 32 [facility]io logy -[facility] [place] [address] [place] Work Phone: Creatinine [Mass/Vol] 1.04 mg/dL See Below [facility] [employer] [address] [place] Work Phone: Comment on above: Reference Range: 0.5 0 - 1.30 Glucose [Mass/Vol] 102 mg/dL above high threshold 74 - 99 [facility] [place] [employer] [place] [address] [place] Work Phone: Potassium [Moles/Vol] 4.7 mmol/L 3.5 - 5.3 [facility] [place] [facility] [address] [place] Work Phone: Sodium [Moles/Vol] 141 mmol/L 136 - 145 MG-Car diology -[facility] [place] [employer] [place] Work Phone: Urea nitrogen [Mass/Vol] 26 mg/dL above high threshold 6 - 23 [facility] [place] [facility] [address] [place] Work Phone: Laboratory - Coagulationon 0 02-24-2020 INR Coag (PPP) [Relative time] 2.2 {INR} above high threshold 0.9 - 1.1 [facility] [address] [place] Work Phone: PT Coag (PPP) [Time] 26.0 s above high threshold See Below [facility] [address] [place] Work Phone: Comment on above: Reference Range: 10. 1 - 13.3 No Panel Informationon 02-23 >60 >60 [facility] [address] [place] Work Phone: Comment on above: CALCULATIONS OF INA MATED GFR ARE PERFORMED USING THE MDRD STUDY EQUATION FOR THE IDMS-TRACEABLE CREATININE METHODS. CLIN CHEM 2007;53:[id number] CT TAVR Full Contrast CH/ABD /Pelvison 02-15-2020 CT TAVR Full Contrast CH/ABD/Pelvis Interpreted by: LAM BROUSSARD02/21/20 08:59Addendum BeginsMRN: [id number] Name: FANI CHUA ADDENDUM:NON-CARDIOVASCUL AR CHEST FINDINGS LUNGS / AIRSPACES / AIRWAYS:Airways: The trachea and central major airways are clear; noendobronchial filling defect.Lungs / airspaces: Moderate biapical paraseptal and centrilobularemphysema with bullous change. Milder mostly paraseptal emphysematouschange in the mid lungs. Sparing of the lung bases from anyemphysematous change. No consolidation, airspace ground-glass or anyother sign of infection. No interstitial or alveolar edema. One ofthe right lower lobe nodules is a definitively benign calcifiedgranuloma. Adjacent to it are clustered several other less than 5 mmnoncalcified technically indeterminate nodules. PLEURA:Effusion: Both sides negativePneumothorax: Both sides negativeOther: n/a NONVASCULAR MEDIASTINUM:Esophagus: Grossly normal by CTMediastinal Mass: NegativeHiatal hernia: None LYMPH NODES:No thoracic adenopathy CHEST WALL:Soft tissues of the chest wall are unremarkable THORACIC SKELETON:No acute or contributory abnormality ------- NON-CARDIOVASCULAR ABDOMINAL/PELVIC FINDINGS Evaluation of solid organs is limited due to arterial phase contrastbolus timing ABDOMINAL/PELVIC SKELETON: No acute skeletal findings, noting lesssensitivity and specificity without dedicated sagittal and coronalreformatted series. LIVER: Normal. No enlargement or evidence of cirrhosis or fattychange. No mass or other suspect lesion. SPLEEN: Normal. No enlargement, mass or evidence of splenic veinthrombosis. PANCREAS: Normal. No CT evidence of acute or chronic pancreatitis. Noduct dilation. No mass. GALLBLADDER: Normal CT appearance. No dilation, calcified, orgas-containing stones. Other types of gallstones could be occult onCT and detectable only by ultrasound. BILE DUCTS: Normal. No biliary duct dilation. ADRENAL GLANDS: Normal. No nodule or mass. KIDNEYS AND URETERS: Left kidney remarkable for localize areas of significant scarring,atrophy and volume loss Much milder similar findings are on the right Simple cysts are in both kidneys Additionally, the single largest of the left renal cysts measuresmaximum diameter 3.7 cm and has rim calcifications. See theimpression of this report No hydronephrosis on either side, but there is an apparentlynonobstructing 5-6 mm distal right ureteral stone within 1 cm of theUVJ proximal to which there is segmental ectasia of the ureter LYMPH NODES: No adenopathy, intraperitoneal, retroperitoneal, pelvicor otherwise APPENDIX: Normal. Not dilated, thick walled or in any other wayinflamed in appearance. No inflammatory change about the appendix. COLON: Distal diverticulosis without acute inflammatory change;otherwise, normal. No sign of acute diverticulitis or other colitis.No annular constricting mass. SMALL BOWEL: Normal. No small bowel dilation or any other sign ofsmall bowel obstruction. No sign of active inflammatory bowel disease. STOMACH / DUODENUM: Grossly normal by CT which has limitedsensitivity and specificity for the stomach and duodenum. RETROPERITONEUM: Normal. No acute hemorrhage or inflammatory change.Lymph nodes in a separate dedicated section. OMENTUM, MESENTERY AND PERITONEAL SPACES:Free intraperitoneal air: NegativeFree intraperitoneal fluid: NegativeAbscess: NegativeOther: n/a URINARY BLADDER: Normal. No wall thickening, large diverticula,radiodense stone or surrounding inflammatory change. PELVIS: Suspect prostatectomy ABDOMINAL WALL:Hernia: Tiny fat containing umbilical. Small bilateral fat containinginguinalOther: No acute or contributory abnormality. ABDOMINAL AND PELVIC SKELETON:No unexpected imaging findings associated with the left hiparthroplasty Gas and fluid containing collection anterior to the right hipmeasures up to approximately 2.2 cm craniocaudal, 4.2 x 2.7 cm in theaxial plane ------- NON-CARDIOVASCULAR IMPRESSION FOR CHEST, ABDOMEN AND PELVIS EMPHYSEMA WITH BIAPICAL BULLOUS CHANGE CLUSTERED LESS THAN 6 MM DIAMETER NONCALCIFIED THEREFORE TECHNICALLYINDETERMINATE RIGHT LOWER LOBE NODULES ARE ADJACENT TO A DENSELYCALCIFIED DEFINITIVELY BENIGN GRANULOMA. THE NONCALCIFIED NODULES ARELIKELY GRANULOMAS WELL BUT ARE TECHNICALLY INDETERMINATE. GIVENTHE EMPHYSEMATOUS CHANGE OF THE LUNGS, SURVEILLANCE OF LUNG NODULESIS RECOMMENDED NO OTHER CONTRIBUTORY POTENTIALLY UNEXPECTED ABNORMALITIES IN THECHEST OUTSIDE THE CARDIOVASCULAR SYSTEM INCLUDING NO ADENOPATHY ORSIGN OF INFECTION APPARENTLY NONOBSTRUCTING 5-6 MM DISTAL RIGHT URETERAL STONE WITHIN 1CM OF THE RIGHT UVJ WITH SOME ASSOCIATED UPSTREAM MILD ECTASIA OF THERIGHT URETER BUT THERE IS NO HYDRONEPHROSIS ON EITHER SIDE ALL BUT ONE OF THE RENAL LESIONS BILATERALLY ARE SIMPLE CYSTS. THEUPPER POLE 3.7 CM LEFT RENAL CYST WITH A RIM CALCIFICATION IS ABOSNIAK TYPE 2 F LESION AND THEREFORE WILL NEED FOLLOW-UP/SURVEILLANCE BOTH KIDNEYS HAVE SCARRING AND ATROPHY, MORE PRONOUNCED ON THE LEFT GAS AND FLUID CONTAINING COLLECTION ANTERIOR TO AND PROBABLY ARISINGFROM RIGHT HIP JOINT OR ADJACENT BURSA OR EVEN POSSIBLYINTRAMUSCULAR. ETIOLOGY AND SIGNIFICANCE INDETERMINATE. FOR ANYUNEXPLAINED RIGHT HIP PAIN, CONSIDER MRI FOR FURTHER EVALUATION NO OTHER CONTRIBUTORY POTENTIALLY UNEXPECTED FINDINGS IN THE ABDOMENOR PELVIS OUTSIDE THE CARDIOVASCULAR SYSTEMAddendum EndsMRN: [id number] Name: FANI CHUA STUDY: CT TAVR FULL CONTRAST CHEST/ABD/PELVIS; 02/15/2020 11:18 am INDICATION:sob. COMPARISON:None. ORDERING CLINICIAN:VI MELGAR TECHNIQUE:Multi-detector CT technology was employed Sivan CT 64-slicescanner. Helical multidetector acquisition of the chest withretrospective gating and minimal slice thickness was performed priorto and following the intravenous administration of contrast material.Subsequently, contrast enhanced CT examination of the abdomen andpelvis was obtained. A low-osmolar contrast agent was used 100ml ofIsovue-370Using prospective ECG gating, CT scan of the aortic valve wasperformed without intravenous contrast. Aortic valve calcium scoringwas performed according to the method of Agatston. For optimization of anatomic evaluation, multiplanar reconstruction,maximum intensity projections, and advanced 3-D off-linepostprocessing were performed on a dedicated stand-alone workstationunder the direct supervision of the interpreting physician. CT Dose-Length Product (DLP): 2306.7 mGy*cmCT Dose Reduction Employed: Yes iterative reconstruction FINDINGS:CARDIAC CT WITHOUT CONTRAST Aortic Valve calcium score: 5199 CTA CHEST WITH CONTRAST THORACIC AORTIC DIMENSIONS:Aortic annulus:25 x 35mm.Sinus of Valsalva(coronal):39 mmAcross sinuses(cusp-commissure): 39mm.Sinotubular junction:33mm.Ascending aorta (RPA level):41mm.Upper ascending aorta:39mm.Arch(mid):34mm .Arch(distal):35mm.Descen ding aorta(PA level):32mm.Descending aorta (diaphragm level):30mm.Main pulmonary artery:34mm.Right pulmonary artery:28 mm.Left pulmonary artery:29mm.No evidence of thoracic aortic dissection or coarctation. Aortic Valve: Calcified trileaflet Pulmonary Veins: Normal pulmonary vein anatomy without evidence ofanomalous pulmonary venous return. No pulmonary vein stenosis CORONARY ARTERIES:The examination is not optimized for assessment of the coronaryarteries.Normal coronary artery origins. Right dominant system.Diffuse coronary artery calcification. CARDIAC CHAMBERS:Normal atrioventricular and ventriculoarterial concordance.Biatrial enlargement.Mitral annular calcification. CTA ABDOMEN/PELVIS WITH CONTRAST ABDOMINAL AORTIC DIMENSIONS:Descending aorta diaphragm level:30mm. Descending aorta renal arterylevel:28mm. Descending aorta infrarenal:27mm.Descendin g aorta distal before bifurcation:22 mm.No abdominal aorta dissection. Heavy calcification. Celiac artery: Mild atherosclerosis.Superior mesenteric artery: Mild atherosclerosis.Right renal artery: Mild atherosclerosis.Left renal artery: Mild atherosclerosis.Right common iliac artery: Mild atherosclerosis.Left common iliac artery: Mild atherosclerosis.Right external iliac artery: Mild atherosclerosis.Left external iliac artery: Mild atherosclerosis.Right common femoral artery: Mild atherosclerosisLeft common femoral artery: Mild atherosclerosis. IMPRESSION:1. Calcified trileaflet aortic valve. Aortic valve calcium score 95755. Aortic annulus 25 x 35mm3. 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 Moderate atherosclerosis of abdominal aorta without evidence ofaneurysm or dissection. Reading Finishing Manager: Dr. Isai Baxter, Date: 02/17/2020 2:29 pmElectronically signed by: LAM BROUSSARD 02/21/20 08:59 Normal [facility] -[facility] Dominick [address] [place] Work Phone: Comment on above: ORDER REVISED TO A T H CT TAVR FULL CONTRAST CHEST/ABD/PELVIS BY RADIOLOGIST; Original Order Number: [id number] Vital Signs Date Time Vital Sign Value Performing Clinician Facility 06-15-2024 17:10-0500 Diastolic blood pressure 71 mm[Hg] María Anderson MD Work Phone: [facility] 06-15-2024 17:10-0500 Heart rate 79 /min María Anderson MD Work Phone: [facility] 06-15-2024 17:10-0500 Respiratory rate 20 /min María Anderson MD Work Phone: [facility] 06-15-2024 17:10-0500 Systolic blood pressure 110 mm[Hg] María Anderson MD Work Phone: [facility] 06-15-2024 17:00-0500 SaO2% (BldA) [Mass fraction] 94 % María Anderson MD Work Phone: [facility] 06-15-2024 15:06-0500 Body temperature 99.6 [degF] Maraí Anderson MD Work Phone: [facility] 06-15-2024 13:39-0500 Body height 175.26 cm María Anderson MD Work Phone: [facility] 06-15-2024 13:39-0500 Body weight 73.4 kg María Anderson MD Work Phone: [facility] 06-13-2024 14:34-0500 Body mass index (BMI) [Ratio] 24.07 kg/m2 Dyan Risaliti PTA Work Phone: [facility] 06-13-2024 14:34-0500 Body weight 73.94 kg Dyan Risaliti PTA Work Phone: [facility] 06-13-2024 14:34-0500 Diastolic blood pressure 80 mm[Hg] Dyan Risaliti PTA Work Phone: [facility] 06-13-2024 14:34-0500 Heart rate 64 /min Dyan Risaliti PTA Work Phone: [facility] 06-13-2024 14:34-0500 SaO2% (BldA) [Mass fraction] 94 % Dyan Caro PTA Work Phone: [facility] 06-13-2024 14:34-0500 Systolic blood pressure 120 mm[Hg] Dyan Caro PTA Work Phone: [facility] 05-18-2024 09:41-0500 Diastolic blood pressure 64 mm[Hg] Bonita Kingsley MD Work Phone: [facility] 05-18-2024 09:41-0500 Systolic blood pressure 120 mm[Hg] Bonita Kingsley MD Work Phone: [facility] 05-18-2024 09:38-0500 Body height 175.3 cm Bonita Kingsley MD Work Phone: [facility] 05-18-2024 09:38-0500 Body mass index (BMI) [Ratio] 24.19 kg/m2 Bonita Kingsley MD Work Phone: [facility] 05-18-2024 09:38-0500 Body weight 74.3 kg Bonita Kingsley MD Work Phone: [facility] 05-18-2024 09:38-0500 Heart rate 62 /min Bonita Kingsley MD Work Phone: [facility] 04-18-2024 14:08-0500 Body height 175.3 cm Bonita Kingsley MD Work Phone: [facility] 04-18-2024 14:08-0500 Body mass index (BMI) [Ratio] 23.98 kg/m2 Bonita Kingsley MD Work Phone: [facility] 04-18-2024 14:08-0500 Body weight 73.66 kg Bonita Kingsley MD Work Phone: [facility] 04-18-2024 14:08-0500 Diastolic blood pressure 60 mm[Hg] Bonita Kingsley MD Work Phone: [facility] 04-18-2024 14:08-0500 Heart rate 72 /min Bonita Kingsley MD Work Phone: [facility] 04-18-2024 14:08-0500 Systolic blood pressure 110 mm[Hg] Bonita Kingsley MD Work Phone: [facility] 04-13-2024 13:32-0400 Body height 175.[address] 04-13-2024 13:32-0400 Body mass index (BMI) [Ratio] 24.66 kg/m2 [address] 04-13-2024 13:32-0400 Body weight 75.[address] 04-13-2024 13:32-0400 Diastolic blood pressure 76 mm[Hg] [address] 04-13-2024 13:32-0400 Systolic blood pressure 134 mm[Hg] [address] 04-06-2024 14:40-0400 Body temperature 97.3 [degF] Maria Fernanda Didion PTA Work Phone: [facility] 04-06-2024 14:40-0400 Diastolic blood pressure 64 mm[Hg] Maria Fernanda Didion PTA Work Phone: [facility] 04-06-2024 14:40-0400 Heart rate 61 /min Maria Fernanda Didion PTA Work Phone: [facility] 04-06-2024 14:40-0400 SaO2% (BldA) [Mass fraction] 91 % Maria Fernanda Didion PTA Work Phone: [facility] 04-06-2024 14:40-0400 Systolic blood pressure 130 mm[Hg] Maria Fernanda Didion PTA Work Phone: [facility] 03-30-2024 13:36-0400 Body height 175.3 cm Petr Perla PTA Work Phone: [facility] 03-30-2024 13:36-0400 Body mass index (BMI) [Ratio] 23.92 kg/m2 Petr Perla PTA Work Phone: [facility] 03-30-2024 13:36-0400 Body weight 73.48 kg Petr Perla PTA Work Phone: [facility] 03-30-2024 13:36-0400 Diastolic blood pressure 83 mm[Hg] Petr Perla PTA Work Phone: [facility] 03-30-2024 13:36-0400 Heart rate 79 /min Petr Perla PTA Work Phone: [facility] 03-30-2024 13:36-0400 Systolic blood pressure 145 mm[Hg] Petr Perla PTA Work Phone: [facility] 03-07-2024 14:08-0400 Diastolic blood pressure 78 mm[Hg] Maria Fernanda Didion PTA Work Phone: [facility] 03-07-2024 14:08-0400 Heart rate 83 /min Maria Fernanda Didion PTA Work Phone: [facility] 03-07-2024 14:08-0400 SaO2% (BldA) [Mass fraction] 96 % Maria Fernanda Didion PTA Work Phone: [facility] 03-07-2024 14:08-0400 Systolic blood pressure 138 mm[Hg] Maria Fernanda Didion PTA Work Phone: [facility] 02-27-2024 15:42-0400 Body temperature 97.9 [degF] MD María Anderson Work Phone: [facility] 02-27-2024 15:42-0400 Diastolic blood pressure 79 mm[Hg] MD María Anderson Work Phone: [facility] 02-27-2024 15:42-0400 Heart rate 61 /min MD María Anderson Work Phone: [facility] 02-27-2024 15:42-0400 Respiratory rate 18 /min MD María Anderson Work Phone: [facility] 02-27-2024 15:42-0400 SaO2% (BldA) [Mass fraction] 93 % MD María Anderson Work Phone: [facility] 02-27-2024 15:42-0400 Systolic blood pressure 152 mm[Hg] MD María Anderson Work Phone: [facility] 02-27-2024 06:00-0400 Body weight 75.2 kg MD María Anderson Work Phone: [facility] 02-26-2024 13:30-0400 Diastolic blood pressure 65 mm[Hg] MD María Anderson Work Phone: [facility] 02-26-2024 13:30-0400 Heart rate 79 /min MD María Anderson Work Phone: [facility] 02-26-2024 13:30-0400 Respiratory rate 20 /min MD María Anderson Work Phone: [facility] 02-26-2024 13:30-0400 SaO2% (BldA) [Mass fraction] 99 % MD María Anderson Work Phone: [facility] 02-26-2024 13:30-0400 Systolic blood pressure 146 mm[Hg] MD María Anderson Work Phone: [facility] 02-26-2024 08:59-0400 Body temperature 98 [degF] MD María Anderson Work Phone: [facility] 02-26-2024 08:54-0400 Body height 175.26 cm MD María Anderson Work Phone: [facility] 02-26-2024 08:54-0400 Body weight 76.8 kg MD María Anderson Work Phone: [facility] 02-17-2024 14:58-0400 Body height 175.3 cm Dyan Caro NP Work Phone: [facility] 02-17-2024 14:58-0400 Body mass index (BMI) [Ratio] 24.45 kg/m2 Dyan Risaliti PTA Work Phone: [facility] 02-17-2024 14:58-0400 Body weight 75.12 kg Dyan Risaliti PTA Work Phone: [facility] 02-17-2024 14:58-0400 Diastolic blood pressure 70 mm[Hg] Dyan Risaliti PTA Work Phone: [facility] 02-17-2024 14:58-0400 Heart rate 52 /min Dyan Risaliti PTA Work Phone: [facility] 02-17-2024 14:58-0400 SaO2% (BldA) [Mass fraction] 93 % Dyan Risaliti PTA Work Phone: [facility] 02-17-2024 14:58-0400 Systolic blood pressure 128 mm[Hg] Dyan Risaliti PTA Work Phone: [facility] 01-22-2024 12:08-0400 Body temperature 97.8 [degF] MD María Anderson Work Phone: [facility] 01-22-2024 12:08-0400 Diastolic blood pressure 76 mm[Hg] MD María Anderson Work Phone: [facility] 01-22-2024 12:08-0400 Heart rate 64 /min MD María Anderson Work Phone: [facility] 01-22-2024 12:08-0400 Respiratory rate 14 /min MD María Anderson Work Phone: [facility] 01-22-2024 12:08-0400 SaO2% (BldA) [Mass fraction] 95 % MD María Anderson Work Phone: [facility] 01-22-2024 12:08-0400 Systolic blood pressure 150 mm[Hg] MD María Anderson Work Phone: [facility] 01-22-2024 04:18-0400 Body weight 73.3 kg MD María Anderson Work Phone: [facility] 01-21-2024 20:10-0400 Body height 175.26 cm MD María Anderson Work Phone: [facility] 01-21-2024 18:30-0400 Diastolic blood pressure 95 mm[Hg] MD María Anderson Work Phone: [facility] 01-21-2024 18:30-0400 Heart rate 78 /min MD María Anderson Work Phone: [facility] 01-21-2024 18:30-0400 Respiratory rate 18 /min MD María Anderson Work Phone: [facility] 01-21-2024 18:30-0400 SaO2% (BldA) [Mass fraction] 96 % MD María Anderson Work Phone: [facility] 01-21-2024 18:30-0400 Systolic blood pressure 143 mm[Hg] MD María Anderson Work Phone: [facility] 01-21-2024 15:16-0400 Body height 177.8 cm MD María Anderson Work Phone: [facility] 01-21-2024 15:16-0400 Body temperature 98.4 [degF] MD María Anderson Work Phone: [facility] 01-21-2024 15:16-0400 Body weight 77.2 kg MD María Anderson Work Phone: [facility] 12-29-2023 14:44-0400 Body temperature 98.7 [degF] MD María Anderson Work Phone: [facility] 12-29-2023 14:44-0400 Diastolic blood pressure 59 mm[Hg] MD María Anderson Work Phone: [facility] 12-29-2023 14:44-0400 Heart rate 57 /min MD María Anderson Work Phone: [facility] 12-29-2023 14:44-0400 SaO2% (BldA) [Mass fraction] 95 % MD María Anderson Work Phone: [facility] 12-29-2023 14:44-0400 Systolic blood pressure 115 mm[Hg] MD María Anderson Work Phone: [facility] 12-29-2023 04:44-0400 Respiratory rate 18 /min MD María Anderson Work Phone: [facility] 12-24-2023 15:26-0400 Body height 175.26 cm MD María Anderson Work Phone: [facility] 12-24-2023 05:31-0400 Body weight 70 kg MD María Anderson Work Phone: [facility] 12-23-2023 11:48-0400 Body temperature 98.4 [degF] MD María Anderson Work Phone: [facility] 12-23-2023 11:48-0400 Diastolic blood pressure 79 mm[Hg] MD María Anderson Work Phone: [facility] 12-23-2023 11:48-0400 Heart rate 69 /min MD María Anderson Work Phone: [facility] 12-23-2023 11:48-0400 Respiratory rate 17 /min MD María Anderson Work Phone: [facility] 12-23-2023 11:48-0400 SaO2% (BldA) [Mass fraction] 95 % MD María Anderson Work Phone: [facility] 12-23-2023 11:48-0400 Systolic blood pressure 126 mm[Hg] MD María Anderson Work Phone: [facility] 12-23-2023 06:19-0400 Body weight 71.5 kg MD María Anderson Work Phone: [facility] 12-22-2023 14:02-0400 Body height 175.26 cm MD María Anderson Work Phone: [facility] 12-21-2023 20:54-0400 Diastolic blood pressure 72 mm[Hg] MD María Anderson Work Phone: [facility] 12-21-2023 20:54-0400 Heart rate 69 /min MD María Anderson Work Phone: [facility] 12-21-2023 20:54-0400 SaO2% (BldA) [Mass fraction] 96 % MD María Anderson Work Phone: [facility] 12-21-2023 20:54-0400 Systolic blood pressure 129 mm[Hg] MD María Anderson Work Phone: [facility] 12-21-2023 19:00-0400 Body height 175.26 cm MD María Anderson Work Phone: [facility] 12-21-2023 19:00-0400 Body temperature 99.3 [degF] MD María Anderson Work Phone: [facility] 12-21-2023 19:00-0400 Body weight 74.3 kg MD María Anderson Work Phone: [facility] 12-21-2023 19:00-0400 Respiratory rate 20 /min MD María Anderson Work Phone: [facility] 12-20-2023 11:13-0400 Body temperature 98.5 [degF] MD María Anderson Work Phone: [facility] 12-20-2023 11:13-0400 Diastolic blood pressure 74 mm[Hg] MD María Anderson Work Phone: [facility] 12-20-2023 11:13-0400 Heart rate 87 /min MD María Anderson Work Phone: [facility] 12-20-2023 11:13-0400 Respiratory rate 16 /min MD María Anderson Work Phone: [facility] 12-20-2023 11:13-0400 SaO2% (BldA) [Mass fraction] 95 % MD María Anderson Work Phone: [facility] 12-20-2023 11:13-0400 Systolic blood pressure 133 mm[Hg] MD María Anderson Work Phone: [facility] 12-20-2023 06:58-0400 Body height 160.02 cm MD María Anderson Work Phone: [facility] 12-20-2023 06:58-0400 Body weight 73.1 kg MD María Anderson Work Phone: [facility] 12-20-2023 04:30-0400 Diastolic blood pressure 84 mm[Hg] MD María Anderson Work Phone: [facility] 12-20-2023 04:30-0400 Heart rate 70 /min MD María Anderson Work Phone: [facility] 12-20-2023 04:30-0400 Respiratory rate 20 /min MD María Anderson Work Phone: [facility] 12-20-2023 04:30-0400 SaO2% (BldA) [Mass fraction] 97 % MD María Anderson Work Phone: [facility] 12-20-2023 04:30-0400 Systolic blood pressure 124 mm[Hg] MD María Anderson Work Phone: [facility] 12-20-2023 00:46-0400 Body height 175.26 cm MD María Anderson Work Phone: [facility] 12-20-2023 00:46-0400 Body temperature 97.9 [degF] MD María Anderson Work Phone: [facility] 12-20-2023 00:46-0400 Body weight 73.93 kg MD María Anderson Work Phone: [facility] 09-29-2023 09:12-0400 Body height 175.3 cm Bonita Kingsley MD Work Phone: [facility] 09-29-2023 09:12-0400 Body mass index (BMI) [Ratio] 24.66 kg/m2 Bonita Kingsley MD Work Phone: [facility] 09-29-2023 09:12-0400 Body weight 75.75 kg Bonita Kingsley MD Work Phone: [facility] 09-29-2023 09:12-0400 Diastolic blood pressure 78 mm[Hg] Bonita Kingsley MD Work Phone: [facility] 09-29-2023 09:12-0400 Heart rate 64 /min Bonita Kingsley MD Work Phone: [facility] 09-29-2023 09:12-0400 Systolic blood pressure 128 mm[Hg] Bonita Kingsley MD Work Phone: [facility] 06-06-2023 16:05-0500 Body temperature 97.8 [degF] MD María Anderson Work Phone: [facility] 06-06-2023 16:05-0500 Diastolic blood pressure 70 mm[Hg] MD María Anderson Work Phone: [facility] 06-06-2023 16:05-0500 Heart rate 65 /min MD María Anderson Work Phone[facility] [facility] 06-06-2023 16:05-0500 Respiratory rate 16 /min MD María Anderson Work Phone: [facility] 06-06-2023 16:05-0500 SaO2% (BldA) [Mass fraction] 95 % MD María Anderson Work Phone: [facility] 06-06-2023 16:05-0500 Systolic blood pressure 121 mm[Hg] MD María Anderson Work Phone: [facility] 06-06-2023 06:00-0500 Body weight 74.5 kg MD María Anderson Work Phone: [facility] 06-05-2023 10:50-0500 Body height 175.26 cm MD María Anderson Work Phone: [facility] 05-05-2023 16:26-0500 Diastolic blood pressure 80 mm[Hg] MD María Anderson Work Phone: [facility] 05-05-2023 16:26-0500 Heart rate 67 /min MD María Anderson Work Phone: [facility] 05-05-2023 16:26-0500 Respiratory rate 16 /min MD María Anderson Work Phone: [facility] 05-05-2023 16:26-0500 SaO2% (BldA) [Mass fraction] 97 % MD María Anderson Work Phone: [facility] 05-05-2023 16:26-0500 Systolic blood pressure 133 mm[Hg] MD María Anderson Work Phone: [facility] 05-05-2023 15:41-0500 Inhaled oxygen flow rate 6 L/min MD María Anderson Work Phone: [facility] 05-05-2023 15:00-0500 Body weight 135 mg MD María Anderson Work Phone: [facility] 05-05-2023 13:33-0500 Body height 175.26 cm MD María Anderson Work Phone: [facility] 05-05-2023 13:33-0500 Body mass index (BMI) [Ratio] 24.7 kg/m2 MD María Anderson Work Phone: [facility] 05-05-2023 13:33-0500 Body weight 76.2 kg MD María Anderson Work Phone: [facility] 05-05-2023 13:03-0500 Body temperature 98.3 [degF] MD María Anderson Work Phone: [facility] 04-13-2023 11:14-0400 Body height 175.26 cm MD María Anderson Work Phone: [facility] 04-13-2023 11:14-0400 Body mass index (BMI) [Ratio] 24.6 kg/m2 MD María Anderson Work Phone: [facility] 04-13-2023 11:14-0400 Body weight 75.74 kg MD María Anderson Work Phone: [facility] 04-13-2023 11:06-0400 Body temperature 97.5 [degF] MD María Anderson Work Phone: [facility] 04-13-2023 11:06-0400 Diastolic blood pressure 74 mm[Hg] MD María Anderson Work Phone: [facility] 04-13-2023 11:06-0400 Heart rate 55 /min MD María Anderson Work Phone: [facility] 04-13-2023 11:06-0400 Respiratory rate 18 /min MD María Anderson Work Phone: [facility] 04-13-2023 11:06-0400 Systolic blood pressure 127 mm[Hg] MD María Anderson Work Phone: [facility] 04-03-2023 08:43-0400 Body height 175.[address] 04-03-2023 08:43-0400 Body mass index (BMI) [Ratio] 24.66 kg/m2 [address] 04-03-2023 08:43-0400 Body weight 75.[address] 04-03-2023 08:43-0400 Diastolic blood pressure 74 mm[Hg] [address] 04-03-2023 08:43-0400 Systolic blood pressure 130 mm[Hg] [address] 04-02-2023 12:55-0400 Body height 175.26 cm MD María Anderson Work Phone: [facility] 04-02-2023 12:55-0400 Body mass index (BMI) [Ratio] 24.6 kg/m2 MD María Anderson Work Phone: [facility] 04-02-2023 12:55-0400 Body weight 75.74 kg MD María Anderson Work Phone: [facility] 04-02-2023 12:46-0400 Body temperature 98.4 [degF] MD María Anderson Work Phone: [facility] 04-02-2023 12:46-0400 Diastolic blood pressure 81 mm[Hg] MD María Anderson Work Phone: [facility] 04-02-2023 12:46-0400 Heart rate 65 /min MD María Anderson Work Phone: [facility] 04-02-2023 12:46-0400 Respiratory rate 18 /min MD María Anderson Work Phone: [facility] 04-02-2023 12:46-0400 Systolic blood pressure 124 mm[Hg] MD María Anderson Work Phone: [facility] 02-24-2023 09:32-0400 Body height 175.26 cm María Anderson Work Phone: [facility] DO Work Phone: 02-24-2023 09:32-0400 Body mass index (BMI) [Ratio] 24.78 kg/m2 María Anderson Work Phone: [facility] DO Work Phone: 02-24-2023 09:32-0400 Body surface area Derived from formula 1.92 m2 María Anderson Work Phone: [facility] DO Work Phone: 02-24-2023 09:32-0400 Body weight 76.11 kg María Anderson Work Phone: [facility] DO Work Phone: 02-24-2023 09:32-0400 Diastolic blood pressure 76 mm[Hg] María Anderson Work Phone: [facility] DO Work Phone: 02-24-2023 09:32-0400 Heart rate 72 /min María Anderson Work Phone: [facility] DO Work Phone: 02-24-2023 09:32-0400 Systolic blood pressure 124 mm[Hg] María Anderson Work Phone: [facility] DO Work Phone: 01-19-2023 09:25-0400 Body height 175.26 cm DO Trey العلي Work Phone: [facility] 01-19-2023 09:25-0400 Body temperature 98.2 [degF] DO Trey العلي Work Phone: [facility] 01-19-2023 09:25-0400 Body weight 77.1 kg DO Trey العلي Work Phone: [facility] 01-19-2023 09:25-0400 Diastolic blood pressure 87 mm[Hg] DO Trey العلي Work Phone: [facility] 01-19-2023 09:25-0400 Heart rate 60 /min DO Trey العلي Work Phone: [facility] 01-19-2023 09:25-0400 Respiratory rate 20 /min DO Treydavid العلي Work Phone: [facility] 01-19-2023 09:25-0400 SaO2% (BldA) [Mass fraction] 97 % DO Trey Zohra Work Phone: [facility] 01-19-2023 09:25-0400 Systolic blood pressure 154 mm[Hg] DO Trey Zohra Work Phone: [facility] 2022 10:43-0500 Body temperature 98.1 [degF] DO Trey Zohra Work Phone: [facility] 2022 10:43-0500 Diastolic blood pressure 84 mm[Hg] DO Trey Zohra Work Phone: [facility] 2022 10:43-0500 Heart rate 76 /min DO Trey Zohra Work Phone: [facility] 2022 10:43-0500 Respiratory rate 18 /min DO Trey Zohra Work Phone: [facility] 2022 10:43-0500 Systolic blood pressure 156 mm[Hg] DO Trey Zohra Work Phone: [facility] 03-19-2022 10:29-0400 Body temperature 97.2 [degF] DO Trey العلي Work Phone: [facility] 03-19-2022 10:29-0400 Diastolic blood pressure 85 mm[Hg] DO Trey Zohra Work Phone: [facility] 03-19-2022 10:29-0400 Heart rate 81 /min DO Trey العلي Work Phone: [facility] 03-19-2022 10:29-0400 Respiratory rate 18 /min DO Trey العلي Work Phone: [facility] 03-19-2022 10:29-0400 Systolic blood pressure 147 mm[Hg] DO Trey Zohra Work Phone: [facility] 03-05-2022 11:12-0400 Body height 175.26 cm DO Trey Zohra Work Phone: [facility] 03-05-2022 11:12-0400 Body mass index (BMI) [Ratio] 25.4 kg/m2 DO Trey Zohra Work Phone: [facility] 03-05-2022 11:12-0400 Body weight 78.01 kg DO Trey Zohra Work Phone: [facility] 02-20-2022 10:45-0400 55 1 Trey العلي Work Phone: [facility] [place] Work Phone: Comment on above: [id number] 02-13-2022 11:44-0400 Body height 175.26 cm Trey العلي Work Phone: [facility] DO Work Phone: 02-13-2022 11:44-0400 Body mass index (BMI) [Ratio] 26.14 kg/m2 Trey العلي Work Phone: [facility] DO Work Phone: 02-13-2022 11:44-0400 Body surface area Derived from formula 1.96 m2 Trey العلي Work Phone: [facility] DO Work Phone: 02-13-2022 11:44-0400 Body weight 80.29 kg Trey العلي Work Phone: [facility] DO Work Phone: 02-13-2022 11:44-0400 Diastolic blood pressure 70 mm[Hg] Trey العلي Work Phone: [facility] DO Work Phone: 02-13-2022 11:44-0400 Heart rate 74 /min Trey العلي Work Phone: [facility] DO Work Phone: 02-13-2022 11:44-0400 Systolic blood pressure 134 mm[Hg] Trey العلي Work Phone: [facility] DO Work Phone: 02-04-2022 09:25-0400 Body temperature 97.7 [degF] DO Trey العلي Work Phone: [facility] 02-04-2022 09:25-0400 Diastolic blood pressure 71 mm[Hg] DO Trey العلي Work Phone: [facility] 02-04-2022 09:25-0400 Heart rate 76 /min DO Trey العلي Work Phone: [facility] 02-04-2022 09:25-0400 Respiratory rate 18 /min DO Trey العلي Work Phone: [facility] 02-04-2022 09:25-0400 Systolic blood pressure 150 mm[Hg] DO Trey العلي Work Phone: [facility] 10-09-2021 14:00-0400 Body height 175.26 cm Yasmo Other [employer] [facility] [email or web address] Other 10-09-2021 14:00-0400 Body mass index (BMI) [Ratio] 25.25 kg/m2 Yasmo Other [employer] [facility] [email or web address] Other 10-09-2021 14:00-0400 Body weight 77.57 kg Yasmo Other [employer] [facility] [email or web address] Other 05-28-2021 14:00-0500 Diastolic blood pressure 80 mm[Hg] Trey Da Silva Zohra Work Phone: [facility] DO Work Phone: 05-28-2021 14:00-0500 Systolic blood pressure 126 mm[Hg] Trey Yanman Work Phone: [facility] DO Work Phone: 05-28-2021 13:55-0500 Body height 175.26 cm Trey Rekha Zohra Work Phone: [facility] DO Work Phone: 05-28-2021 13:55-0500 Body mass index (BMI) [Ratio] 26.14 kg/m2 Trey العلي Work Phone: [facility] DO Work Phone: 05-28-2021 13:55-0500 Body surface area Derived from formula 1.96 m2 Trey العلي Work Phone: [facility] DO Work Phone: 05-28-2021 13:55-0500 Body weight 80.29 kg Trey العلي Work Phone: [facility] DO Work Phone: 05-28-2021 13:55-0500 Diastolic blood pressure 103 mm[Hg] Trey العلي Work Phone: [facility] DO Work Phone: 05-28-2021 13:55-0500 Heart rate 70 /min Trey العلي Work Phone: [facility] DO Work Phone: 05-28-2021 13:55-0500 Systolic blood pressure 144 mm[Hg] Trey العلي Work Phone: [facility] DO Work Phone: 05-15-2021 14:30-0500 Body height 175.26 cm María Stevenson II Other [employer] Other 05-15-2021 14:30-0500 Body mass index (BMI) [Ratio] 25.1 kg/m2 María Stevenson II Other [employer] Other 05-15-2021 14:30-0500 Body weight 77.11 kg María Stevenson II Other [employer] Other 03-19-2021 10:45-0400 Body height 175.26 cm Fani Johnston Other [employer] Other 03-19-2021 10:45-0400 Body mass index (BMI) [Ratio] 25.1 kg/m2 Fani Johnston Other [employer] Other 03-19-2021 10:45-0400 Body weight 77.11 kg Fani Johnston Other [employer] Other Encounters Encounter Date Encounter Type Care Provider Facility Start: 08-17-2024 End: 08-17-2024 ambulatory Marisela Shaffer Facility:[facility] Start: 08-08-2024 End: 08-08-2024 ambulatory Julio C RAMIREZ [place] Start: 08-08-2024 ambulatory Julio C RAMIREZ Facility :CD:[id number] Start: 08-04-2024 End: 08-04-2024 Clinisync Result Encounter Generic External Data Provider [facility] External Department Unsolicited Start: 08-04-2024 End: 08-04-2024 Clinisync Result Encounter Generic External Data Provider [facility] External Department Unsolicited Start: 08-03-2024 End: 08-03-2024 ambulatory Marisela Shaffer Facility:[facility] Start: 07-20-2024 End: 07-20-2024 ambulatory Marisela Shaffer Facility:[facility] Start: 07-13-2024 End: 07-13-2024 ambulatory Trey العلي Facility:[facility] Start: 07-05-2024 End: 07-05-2024 ambulatory Marisela Shaffer Facility:[facility] Start: 06-15-2024 End: 06-15-2024 Emergency department patient visit María Anderson MD Work Phone: [facility] Work Phone: Start: 06-13-2024 End: 06-13-2024 Office outpatient visit 25 minutes Dyan Caro NP Work Phone: [facility] Comment on above: Mixed hyperlipidemia (CMS/HCC) (Primary Dx); Prediabetes; Coronary artery disease involving [place] coronary artery of [place] heart without angina pectoris (CMS/HCC); Chronic atrial fibrillation (HCC) (CMS/HCC); Congestive heart failure, NYHA class 2, unspecified congestive heart failure type (CMS/HCC); Gastroesophageal reflux disease without esophagitis; Anemia, unspecified type; Lumbosacral spondylosis without myelopathy; History of gout; Centrilobular emphysema (CMS/HCC); Medicare annual wellness visit, subsequent; ACP (advance care planning) Start: 06-13-2024 End: 06-13-2024 Patient encounter procedure Dyan Caro NP Work Phone: [facility] Start: 06-13-2024 End: 06-13-2024 ambulatory DYAN CARO Not Available Start: 05-18-2024 End: 05-18-2024 Office outpatient visit 10 minutes Bonita Kingsley MD Work Phone: [facility] Comment on above: Congestive heart andrew lure, NYHA class 2, unspecified congestive heart failure type; BMI 24.0-24.9, adult; Former smoker Start: 05-18-2024 End: 05-18-2024 ambulatory [facility] Start: 05-11-2024 End: 05-11-2024 ambulatory Marisela Shaffer Facility:[facility] Start: 05-06-2024 End: 05-06-2024 Patient encounter procedure María Anderson MD Work Phone: [facility] [place] Work Phone: Start: 05-06-2024 End: 05-06-2024 ambulatory María Anderson Facility:[facility] Start: 05-04-2024 End: 05-04-2024 ambulatory Marisela Shaffer Facility:[facility] Start: 04-28-2024 End: 04-28-2024 [facility] Start: 04-25-2024 End: 04-25-2024 Elida Blum MA Work Phone: [facility] Comment on above: Lumbosacral spondylo sis without myelopathy (Primary Dx); Skin tear of left elbow without complication, initial encounter; Left leg cellulitis Start: 04-22-2024 End: 04-22-2024 ambulatory Erasmo Bonner Facility:[facility] Start: 04-18-2024 End: 04-18-2024 Office outpatient visit 25 minutes Bonita Kingsley MD Work Phone: [facility] Comment on above: Nonrheumatic aortic valve stenosis; Status post transcatheter aortic valve replacement; Coronary artery disease, unspecified vessel or lesion type, unspecified whether angina present, unspecified whether [place] or transplanted heart; Pulmonary hypertension (Multi); Congestive heart failure, NYHA class 2, unspecified congestive heart failure type; Permanent atrial fibrillation (Multi); PVD (peripheral vascular disease) ([facility]); Former smoker; BMI 23.0-23.9, adult Start: 04-18-2024 End: 04-18-2024 ambulatory [facility] Start: 04-15-2024 End: 04-15-2024 [facility] Start: 04-13-2024 End: 04-13-2024 ambulatory [facility] Start: 04-13-2024 End: 04-13-2024 Subsequent hospital visit by physician Nano Tamayo Echo/Vasc Room 2 [facility] Comment on above: Nonrheumatic aortic valve stenosis; Presence of prosthetic heart valve; Status post transcatheter aortic valve replacement Start: 04-08-2024 End: 04-08-2024 Telephone encounter Erasmo Bonner CHALO FACFAS Work Phone: [facility] Start: 04-08-2024 End: 04-08-2024 ambulatory Erasmo Bonner Facility:[facility] Start: 04-06-2024 End: 04-06-2024 ambulatory MARÍA ANDERSON Not Available Start: 04-06-2024 End: 04-06-2024 Office outpatient visit 40 minutes Maria Fernanda Laws NP Work Phone: [facility] Comment on above: Skin tear of left el bow without complication, initial encounter (Primary Dx); Left leg cellulitis; Left leg swelling; Blood blister Start: 03-30-2024 End: 03-30-2024 Bamboo flowsheet Petr Perla PTA Work Phone: [facility] Start: 03-30-2024 End: 03-30-2024 Bamboo flowsheet Petr Perla PTA Work Phone: [facility] Start: 03-30-2024 End: 03-30-2024 Office outpatient visit 40 minutes Petr Jose Aquinoeloy PTA Work Phone: [facility] Comment on above: TIA (transient ische lakeisha attack) (Primary Dx); Cervical spondylosis without myelopathy; Hyperreflexia Start: 03-30-2024 End: 03-30-2024 ambulatory PETR PERLA Not Available Start: 03-22-2024 End: 03-22-2024 Bamboo flowsheet Frank Hook MD Work Phone: [facility] Start: 03-22-2024 End: 03-22-2024 Bamboo flowsheet Frnak Hook MD Work Phone: [facility] Start: 03-22-2024 End: 03-22-2024 Office outpatient visit 10 minutes Frank Hook MD Work Phone: [facility] Comment on above: Seborrheic keratosis (Primary Dx) Start: 03-22-2024 End: 03-22-2024 ambulatory FRANK HOOK Not Available Start: 03-08-2024 End: 03-08-2024 ambulatory MD María Anderson Work Phone: [facility] Work Phone: Start: 03-08-2024 End: 03-08-2024 MD María Anderson Work Phone: [facility] Work Phone: Start: 03-08-2024 End: 03-08-2024 MD María Anderson Work Phone: [facility] Start: 03-08-2024 End: 03-08-2024 ambulatory MD María Anderson Work Phone: [facility] Work Phone: Start: 03-07-2024 End: 03-07-2024 ambulatory MARÍA ANDERSON Not Available Start: 03-07-2024 End: 03-07-2024 Office outpatient visit 25 minutes Maria Fernanda Laws PTA Work Phone: [facility] Comment on above: Nontraumatic tear of right rotator cuff, unspecified tear extent (Primary Dx) Start: 02-26-2024 Evaluation and manag ement of inpatient MD María Anderson Work Phone: [facility] Work Phone: Start: 02-26-2024 End: 02-27-2024 observation encounter MD María Anderson Work Phone: [facility] Work Phone: Start: 02-26-2024 End: 02-27-2024 MD María Anderson Work Phone: [facility] Work Phone: Start: 02-26-2024 End: 02-27-2024 ambulatory Bright Lopez Facility:[facility] Start: 02-17-2024 End: 02-17-2024 Transitional care manage srvc 7 day discharge Dyan Caro PTA Work Phone: [facility] Comment on above: TIA (transient ische lakeisha attack) (Primary Dx); Generalized muscle weakness; Chronic systolic congestive heart failure, NYHA class 2 (CMS/HCC) Start: 02-17-2024 End: 02-17-2024 ambulatory DYAN CARO Not Available Start: 02-03-2024 End: 02-03-2024 ambulatory MD María Anderson Work Phone: [facility] Work Phone: Start: 02-03-2024 End: 02-03-2024 Patient encounter procedure MD María Anderson Work Phone: [facility] Work Phone: Start: 02-03-2024 End: 02-03-2024 MD María Anderson Work Phone: [facility] [facility] Work Phone: Start: 01-21-2024 End: 01-22-2024 ambulatory Minna Patricia Facility:[facility] Start: 01-21-2024 End: 01-22-2024 Evaluation and management of inpatient MD María Anderson Work Phone: [facility] Work Phone: Start: 01-21-2024 End: 01-22-2024 observation encounter MD María Anderson Work Phone: [facility] Work Phone: Start: 01-21-2024 End: 01-22-2024 MD María Anderson Work Phone: [facility] Work Phone: Start: 01-06-2024 End: 01-06-2024 Patient encounter procedure MD María Anderson Work Phone: [facility] Work Phone: Start: 01-06-2024 End: 01-06-2024 MD María Anderson Work Phone: [facility] Work Phone: Start: 01-06-2024 End: 01-06-2024 ambulatory MD María Anderson Work Phone: [facility] Work Phone: Start: 01-04-2024 End: 01-04-2024 ambulatory MARIA FERNANDA LAWS Not Available Start: 12-24-2023 Non-patient / Non-visit MD Omar Anderson Work Phone: [facility] Work Phone: Start: 12-24-2023 MD María Anderson Work Phone: [facility] Work Phone: Start: 12-23-2023 End: 12-29-2023 MD María Anderson Work Phone: [facility] Work Phone: Start: 12-23-2023 End: 12-29-2023 Evaluation and management of inpatient MD María Anderson Work Phone: [facility] Work Phone: Start: 12-22-2023 Non-patient / Non-visit MD Omar Anderson Work Phone: [facility] [facility] Work Phone: Start: 12-22-2023 End: 12-23-2023 Evaluation and management of inpatient MD María Anderson Work Phone: [facility] Work Phone: Start: 12-22-2023 Non-patient / Non-visit MD Omar Anderson Work Phone: [facility] Work Phone: Start: 12-22-2023 End: 12-23-2023 MD María Anderson Work Phone: [facility] Work Phone: Start: 12-21-2023 Evaluation and manag ement of inpatient MD María Anderson Work Phone: [facility] Work Phone: Start: 12-21-2023 observation encounter MD Roney Anderson Work Phone: [facility] Work Phone: Start: 12-20-2023 End: 12-20-2023 ambulatory Rubio Olexa Facility:[facility] Start: 12-20-2023 End: 12-20-2023 Evaluation and management of inpatient MD María Anderson Work Phone: [facility] Work Phone: Start: 12-20-2023 End: 12-20-2023 observation encounter MD María Anderson Work Phone: [facility] Work Phone: Start: 12-20-2023 End: 12-20-2023 MD María Anderson Work Phone: [facility] Work Phone: Start: 11-19-2023 End: 11-19-2023 ambulatory ADELAIDE WILSON Not Available Start: 11-12-2023 End: 11-12-2023 ambulatory MARÍA ANDERSON Not Available Start: 09-29-2023 End: 09-29-2023 Office outpatient visit 25 minutes Bonita Kingsley MD Work Phone: [facility] Comment on above: Nonrheumatic aortic valve stenosis; Presence of prosthetic heart valve; Status post transcatheter aortic valve replacement; Permanent atrial fibrillation (Multi); Coronary artery disease, unspecified vessel or lesion type, unspecified whether angina present, unspecified whether [place] or transplanted heart; Congestive heart failure, NYHA class 2, unspecified congestive heart failure type (Multi); Pulmonary hypertension (Multi); Hypertension, unspecified type; Pure hypercholesterolemia; PVD (peripheral vascular disease) ([facility]); Type 2 diabetes mellitus without complication, unspecified whether fci insulin use (Multi); Stage 2 chronic kidney disease; Former smoker Start: 09-29-2023 End: 09-29-2023 ambulatory BONITA KINGSLEY [facility] Start: 09-24-2023 End: 09-24-2023 ambulatory LATRICE WEEKS Not Available Start: 09-24-2023 End: 09-24-2023 ambulatory MARÍA ANDERSON Not Available Start: 07-07-2023 End: 07-07-2023 ambulatory MARIA EUGENIA COOL Not Available Start: 06-16-2023 End: 06-16-2023 ambulatory MARÍA ANDERSON Not Available Start: 06-04-2023 End: 06-06-2023 Evaluation and management of inpatient MD María Anderson Work Phone: [facility] [employer] [facility] Work Phone: Start: 05-05-2023 End: 05-05-2023 Admission to same day surgery center MD María Anderson Work Phone: [facility]-Surgery Center [place] Start: 05-05-2023 End: 05-05-2023 ambulatory MD María Anderson Work Phone: [facility] Work Phone: Start: 04-13-2023 End: 04-13-2023 ambulatory MD María Anderson Work Phone: [facility] Work Phone: Start: 04-13-2023 End: 04-13-2023 Discharged Recurring MD María Anderson Work Phone: [facility]ound [facility] [place] Work Phone: Start: 04-03-2023 End: 04-03-2023 Subsequent hospital visit by physician Nano Tamayo Echo/Vasc Room 2 [facility] Comment on above: Nonrheumatic aortic valve stenosis; S/P aortic valve replacement Start: 04-02-2023 End: 04-02-2023 ambulatory MD María Anderson Work Phone: [facility] Work Phone: Start: 04-02-2023 End: 04-02-2023 Patient encounter procedure MD María Anderson Work Phone: [facility] Work Phone: Start: 04-02-2023 Registered Recurring MD María Anderson Work Phone: [facility] [place] Work Phone: Start: 03-30-2023 End: 03-30-2023 ambulatory Ema Blades Other [facility] [email or web address] Other Start: 03-30-2023 Office outpatient ne w 45 minutes Ema Blades [facility] Neurosurgery Start: 02-24-2023 Office outpatient vi sit 25 minutes María Anderson Work Phone: -[facility] Heart-[place] 250 DO Work Phone: Start: 02-24-[address] Trey Lutz Facility: Start: 01-19-2023 End: 01-19-2023 Emergency department patient visit DO Trey العلي Work Phone: [facility]-Emergency Room Work Phone: Start: 01-13-2023 End: 01-13-2023 ambulatory DO Trey العلي Work Phone: [facility] Work Phone: Start: 01-13-2023 End: 01-13-2023 Patient encounter procedure DO Trey العلي Work Phone: [facility]-CT Scan [place] Work Phone: Start: 10-28-2022 End: 10-28-2022 Patient encounter procedure DO Trey العلي Work Phone: [facility]-Lab [place] Work Phone: Start: 10-13-2022 End: 11-12-2022 ambulatory SHAIKH Fazal TREVINO Facility:H1 Start: 10-08-2022 End: 10-08-[address] TREY Ramos Facility:H1 Start: 09-15-2022 End: 10-10-2022 ambulatory SHAIKH Fazal TREVINO Facility:H1 Start: 08-13-2022 End: 09-12-2022 ambulatory SHAIKH Fazal TREVINO Facility:H1 Start: 07-16-2022 End: 08-13-2022 ambulatory ROME H FAWWAD Facility:H1 Start: 06-17-2022 End: 06-17-[address] TREY العلي Facility:H1 Start: 06-16-2022 End: 07-16-2022 ambulatory ROME H FAWWAD Facility:H1 Start: 06-15-2022 End: 06-20-[address] TREY العلي Facility:H1 Start: 06-03-2022 End: 06-14-[address] TREY العلي Facility:H1 Start: 2022 End: 2022 ambulatory DO Trey العلي Work Phone: [facility] Work Phone: Start: 2022 End: 2022 Discharged Recurring DO Trey العلي Work Phone: [facility]ound [facility] [place] Work Phone: Start: 05-22-2022 End: 05-23-[address] KRISTIN MCGUIRE . Facility:H1 Start: 05-15-2022 End: 06-15-2022 ambulatory ROME H FAWWAD Facility:H1 Start: 04-24-2022 End: 04-25-2022 ambulatory ROME H FAWWAD Facility:H1 Start: 04-15-2022 End: 05-14-2022 ambulatory ROME H FAWWAD Facility:H1 Start: 04-08-2022 End: 04-08-2022 ambulatory ROME H FAWWAD Facility:H1 Start: 03-25-2022 End: 03-26-2022 ambulatory ROME H FAWWAD Facility:H1 Start: 03-19-2022 End: 03-19-2022 ambulatory DO Trey العلي Work Phone: [facility] Work Phone: Start: 03-19-2022 End: 03-19-2022 Discharged Recurring DO Trey العلي Work Phone: [facility] [place] Start: 03-16-2022 End: 04-14-2022 ambulatory ROME H FAWWAD Facility:H1 Start: 02-28-2022 Chart Update Trey juan Work Phone: [facility] 600 DO Work Phone: Start: 02-20-2022 Patient encounter procedure Trey العلي Work Phone: [facility] [address] [place] Work Phone: Start: 02-20-[address] Bonita Rocaahim Facility:[id number] Start: 02-13-2022 ambulatory ROME H FAWWAD Facilit y:H1 Start: 02-13-2022 Patient encounter procedure Trey العلي Work [facility]: [facility] Work Phone: Start: 02-13-2022 End: 03-15-2022 ambulatory ROME H FAWWAD Facility:H1 Start: 02-04-2022 Registered Recurring DO Che العلي Work Phone: [facility] [place] Start: 02-03-2022 End: 02-03-2022 Departed Referred DO Trey العلي Work Phone: [facility]-Lab [place] Start: 01-21-2022 ambulatory ROME H FAWWAD Facilit y:H1 Start: 01-13-2022 End: 02-12-2022 ambulatory ROME H FAWWAD Facility:H1 Start: 01-08-2022 End: 01-08-2022 Patient encounter procedure DO Trey العلي Work Phone: [facility]-XRay [place] [facility] Start: 01-02-2022 End: 01-03-2022 ambulatory ROME H FAWWAD Facility:H1 Start: 12-31-2021 End: 01-01-2022 ambulatory ROME H FAWWAD Facility:H1 Start: 12-13-2021 End: 07-29-2022 ambulatory ROME H FAWWAD Facility:H1 Start: 10-09-2021 End: 10-09-2021 ambulatory María Graham II Other [facility] [email or web address] Other Start: 10-09-2021 Office outpatient vi sit 15 minutes María Graham II [employer] [facility] [facility] [place] [facility] Start: 05-28-2021 Office outpatient vi sit 25 minutes Trey العلي Work Phone: [facility]-[place] 250 DO Work Phone: Start: 05-15-2021 End: 05-15-2021 ambulatory María Izard II Other [facility] [email or web address] Other Start: 05-15-2021 Office outpatient ne w 45 minutes María Izard II [employer] [facility] [facility] [place] [facility] Start: 03-19-2021 Patient encounter procedure Fani Johntson [employer] [facility] [place] [facility] Start: 03-01-2021 Patient encounter procedure Trey العلي Work Phone: [facility] [address] [place] Work Phone: Start: 02-13-2020 Patient encounter procedure Trey العلي TZ-Wwioslaisj-AAJ [facility] [address] [place] Work Phone: Procedures Date Procedure Procedure Detail Performing Clinician Start: 08-04-2024 XR ABDOMEN 1V Generic E xternal Data Provider Start: 06-15-2024 Plain chest X-ray Roney Anderson MD Work Phone: Start: 06-15-2024 Viral nucleic acid assay María Anderson MD Work Phone: Start: 06-15-2024 CT of abdomen and pe lvis without contrast María Anderson MD Work Phone: Start: 04-13-2024 Echo tthrc r-t 2d w/ wom-mode compl spec&colr d Bonita Kingsley MD Work Phone: Start: 03-08-2024 X-ray of right knee MD María Anderson Work Phone: Start: 03-08-2024 Plain X-ray of right shoulder MD María Anderson Work Phone: Start: 02-26-2024 MD María Anderson Work Phone: Start: 02-26-2024 CT of head without contrast MD María Anderson Work Phone: Start: 02-26-2024 Plain chest X-ray MD Nat Anderson Work Phone: Start: 02-03-2024 X-ray of right knee MD María Anderson Work Phone: Start: 01-22-2024 Lipid 1996 panel - S aime or Plasma Nano 2 Start: 01-21-2024 CT angiography of head MD María Anderson Work Phone: Start: 01-21-2024 CT angiography of ne ck vessels MD María Anderson Work Phone: Start: 01-21-2024 CT of head without contrast MD María Anderson Work Phone: Start: 01-21-2024 Plain chest X-ray MD Nat Anderson Work Phone: Start: 01-06-2024 X-ray of right knee MD María Anderson Work Phone: Start: 12-22-2023 X-ray of right knee MD María Anderson Work Phone: Start: 12-20-2023 CT of right knee MD Omar Anderson Work Phone: Start: 12-20-2023 Plain X-ray of left shoulder MD María Anderson Work Phone: Start: 12-20-2023 Plain X-ray of right femur MD María Anderson Work Phone: Start: 12-20-2023 X-ray of right knee MD María Anderson Work Phone: Start: 12-20-2023 Computed tomography of abdomen and pelvis with contrast MD María Anderson Work Phone: Start: 12-20-2023 CT cervical spine wi thout contrast MD María Anderson Work Phone: Start: 12-20-2023 CT of head without contrast MD María Anderson Work Phone: Start: 12-20-2023 CT of thorax with contrast MD María Anderson Work Phone: Start: 06-04-2023 CT angiography of head MD María Anderson Work Phone: Start: 06-04-2023 CT angiography of ne ck vessels MD María Anderson Work Phone: Start: 06-04-2023 CT of head without contrast MD María Anderson Work Phone: Start: 06-04-2023 Plain chest X-ray MD Nat Anderson Work Phone: Start: 05-05-2023 Abdomen endoscopy MD Nat Anderson Work Phone: Start: 04-03-2023 Echo tthrc r-t 2d w/ wom-mode compl spec&colr d Bonita Kingsley MD Work Phone: Start: 01-19-2023 Blood culture for ba cteria, including anaerobic screen MD María Anderson Work Phone: Start: 01-13-2023 CT of urinary tract DO Trey العلي Work Phone: Start: 02-20-2022 Echocardiography Che العلي Work Phone: Start: 01-08-2022 Plain X-ray of right hip DO Trey العلي Work Phone: Start: 02-20-2021 Echocardiography Che العلي Work Phone: Aerobic microbial culture DO Trey العلي Work Phone: Cardiovascular system repair Trey العلي Work Phone: Heart valve replacement Abrahan العلي Work Phone: Operation on bladder Trey العلي Work Phone: Operative procedure on hip J walter العلي Prostatectomy Trey العلي Prosthetic arthropla sty of the hip Trey العلي Work Phone: Repair of musculoten dinous cuff of shoulder Trey العلي Work Phone: Total replacement of hip Dominik triston Da [employer] Zohra Work Phone: Comment on above: 12/18/20; Plan of Treatment Date Care Activity Detail Author Start: 12-19-2033 DTaP/Tdap/Td Vaccine s (2 - Td or Tdap) DTaP/Tdap/Td Vaccines (2 - Td or Tdap) [facility] Start: 04-13-2025 Echocardiography Echocardiogram [facility] Start: 01-21-2025 Lipid panel Lipid Panel [facility] Start: 12-13-2024 End: 12-13-2024 Patient encounter procedure 12/13/2024 2:00 PM EDT Office Visit [facility] [address] [facility] [address] [place] [id number] María Anderson MD [address] [facility] [address] [place] [address] [facility] Start: 12-12-2024 End: 06-13-2025 CBC W Auto Differential panel - Blood CBC and differential Lab Routine Anemia, unspecified type Expected: 12/12/2024, Expires: 06/13/2025 [facility] Comment on above: Expected: 12/12/2024 , Expires: 06/13/2025 Start: 12-12-2024 End: 06-13-2025 Comprehensive metabolic 2000 panel - Serum or Plasma Comprehensive metabolic panel Lab Routine Prediabetes Expected: 12/12/2024, Expires: 06/13/2025 [facility] Comment on above: Expected: 12/12/2024 , Expires: 06/13/2025 Start: 12-12-2024 End: 06-13-2025 Hemoglobin a1c with eag Hemoglobin a1c with eag Lab Routine Prediabetes Expected: 12/12/2024, Expires: 06/13/2025 [facility] Comment on above: Expected: 12/12/2024 , Expires: 06/13/2025 Start: 12-12-2024 End: 06-13-2025 Lipid 1996 panel - Serum or Plasma Lipid panel Lab Routine Mixed hyperlipidemia (CMS/HCC) Expected: 12/12/2024, Expires: 06/13/2025 [facility] Comment on above: Expected: 12/12/2024 , Expires: 06/13/2025 Start: 11-04-2024 End: 11-04-2024 Patient encounter procedure 11/04/2024 1:40 PM EDT Office Visit [facility] [address] [place] [address] Bonita Kingsley MD [address] [facility] [address] [place] [address] [facility] Start: 11-01-2024 Urine screening for protein Diabetes: Urine Protein Screening [facility] Start: 06-15-[address] [facility] Start: 06-15-2024 [facility] Start: 06-15-2024 Bacteria identified in Blood by Culture Blood Culture [facility] Start: 06-15-2024 Bacteria identified in Urine by Culture Urine Culture [facility] Start: 05-18-2024 End: 05-18-2024 Patient encounter procedure 05/18/2024 9:30 AM EST Office Visit [facility] [address] [place] [address] Bonita Kingsley MD [address] [facility] [address] [place] [address] [facility] Start: 05-15-2024 Medicare Annual Well ness Visit Medicare Annual Wellness Visit (AWV) [facility] Start: 05-11-2024 End: 05-11-2024 Patient encounter procedure 05/11/2024 9:45 AM EST Office Visit [facility] [address] [place] [id number] María Anderson MD [address] [place] [address] [facility] Start: 05-02-2024 End: 04-18-2025 Basic metabolic 2000 panel - Serum or Plasma Basic Metabolic Panel Lab Routine Congestive heart failure, NYHA class 2, unspecified congestive heart failure type Expected: 05/02/2024 (Approximate), Expires: 04/18/2025 [facility] Service Area Work Phone: Comment on above: Expected: 05/02/2024 (Approximate), Expires: 04/18/2025 Start: 04-18-2024 End: 04-18-2024 Patient encounter procedure 04/18/2024 2:00 PM EST Office Visit [facility] [address] [place] [address] Bonita Kingsley MD [address] [place] [address] [facility] Start: 04-03-2024 Echocardiography Echocardiogram [facility] Start: 03-30-2024 End: 03-30-2025 MR Brain WO contrast MR brain wo contrast Imaging Routine TIA (transient ischemic attack) Expected: 03/30/2024 (Approximate), Expires: 03/30/2025 [facility] Work Phone: Comment on above: Expected: 03/30/2024 (Approximate), Expires: 03/30/2025 Start: 03-30-2024 End: 03-30-2025 MR Cervical spine WO contrast MR cervical spine wo contrast Imaging Routine Cervical spondylosis without myelopathy Hyperreflexia Expected: 03/30/2024 (Approximate), Expires: 03/30/2025 [facility] Comment on above: Expected: 03/30/2024 (Approximate), Expires: 03/30/2025 Start: 03-30-2024 End: 09-28-2025 US Heart Transthoracic Transthoracic Echo Complete Echocardiography Routine 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 Expected: 03/30/2024 (Approximate), Expires: 09/28/2025 [facility] Service Area Work Phone: Comment on above: Expected: 03/30/2024 (Approximate), Expires: 09/28/2025 Start: 03-30-2024 End: 03-30-2024 Patient encounter procedure [facility] Comment on above: Arrived Start: 03-22-2024 End: 03-22-2024 Patient encounter procedure 03/22/2024 1:30 PM EDT Office Visit [facility] [address] [place] [address] Frank Hook MD [address] [place] [address] [facility] Start: 03-16-2024 End: 03-16-2024 Patient encounter procedure 03/16/2024 10:20 AM EDT Office Visit [place] [address] [place] [phone] Bonita Kingsley MD [address] [place] [address] [facility] Start: 03-08-2024 X-ray of right knee [facility] Start: 03-08-2024 XR Knee - right [address] [facility] Start: 03-08-2024 Plain X-ray of right shoulder [facility] Start: 03-08-2024 XR Shoulder - right Views [facility] Start: 03-02-2024 End: 03-02-2024 Patient encounter procedure 03/02/2024 1:30 PM EDT Appointment [facility] [address] [place] [address] [facility] Start: 03-01-2024 FUV, Provider: Bonita Kingsley, Status: Pen, Time: 11:50 AM FUV, Provider: Bonita Kingsley, Status: Pen, Time: 11:50 AM [facility] 250 DO Work Phone: Start: 03-01-2024 End: 03-01-2024 Patient encounter procedure 03/01/2024 11:50 AM EDT Office Visit [facility] [address] [place] [address] Bonita Kingsley MD [address] [place] [address] [facility] Start: 02-27-2024 [facility] Start: 02-26-2024 [facility] Start: 02-26-2024 Hospital admission [facility] Start: 02-14-2024 COVID-19 Vaccine ( season) COVID-19 Vaccine () [facility] Start: 02-14-2024 Influenza vaccination Influenza Vacc ine (#1) [facility] Start: 02-03-2024 X-ray of right knee XR knee RT 3V - NOT FOR ER USE [facility] Start: 02-03-2024 XR Knee - right [address] [facility] Start: 02-02-2024 Hemoglobin A1c measurement Diabetes: Hemoglobin A1C [facility] Start: 01-22-[address] [facility] Start: 01-22-2024 End: 01-22-2024 [facility] Start: 01-21-[address] [facility] Start: 01-21-2024 Hospital admission [facility] Start: 01-21-[address] [facility] Start: 01-21-2024 Referral to occupati onal therapist [facility] Start: 01-21-2024 Referral to speech a nd language therapy service [facility] Start: 01-21-2024 [facility] Start: 01-06-2024 X-ray of right knee XR knee RT 3V - NOT FOR ER USE [facility] Start: 01-06-2024 XR Knee - right [address] [facility] Start: 12-29-2023 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 Start: 12-23-2023 [facility] Start: 12-22-2023 Drainage of Right Kn ee Joint, Percutaneous Approach [facility] Start: 12-22-[address] [facility] Start: 12-22-2023 Referral to rehabilitation physician [facility] Start: 12-21-[address] [facility] Start: 12-21-2023 Referral to occupati onal therapist 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 Start: 12-21-2023 [facility] Start: 12-21-2023 Hospital admission [facility] Start: 12-20-2023 [facility] Start: 12-20-[address] [facility] Start: 12-20-2023 CT Knee - right WO contrast [facility] Start: 12-20-2023 CT of right knee CT knee RT wo con [facility] Start: 12-20-2023 Hospital admission [facility] Start: 12-20-[address] [facility] Start: 12-20-2023 Referral to occupati onal therapist [facility] Start: 12-20-2023 [facility] Start: 12-20-2023 Plain X-ray of left shoulder XR shoulder LT min 2V* [facility] Start: 12-20-2023 XR Shoulder - left Views [facility] Start: 12-20-2023 Plain X-ray of right femur XR femur RT 2V* [facility] Start: 12-20-2023 X-ray of right knee XR knee RT 4V* [facility] Start: 12-20-2023 XR Femur - right [address] [facility] Start: 12-20-2023 XR Knee - right [address] [facility] Start: 12-20-2023 Computed tomography of abdomen and pelvis with contrast CT abdomen pelvis w con [facility] Start: 12-20-2023 CT Abdomen and Pelvi s W contrast IV [facility] Start: 12-20-2023 CT cervical spine without contrast CT cervical spine wo con [facility] Start: 12-20-2023 CT Cervical spine WO contrast [facility] Start: 12-20-2023 CT Chest W contrast IV [facility] Start: 12-20-2023 CT of head without contrast CT head/brain wo con [facility] Start: 12-20-2023 CT of thorax with contrast CT chest w con [facility] Start: 12-20-2023 CT Unspecified body region WO contrast [facility] Start: 06-05-[address] [facility] Start: 06-05-2023 [facility] Start: 06-05-2023 [facility] Start: 06-05-[address] [facility] Start: 06-04-2023 Hospital admission [facility] Start: 05-05-2023 End: 05-05-2023 [facility] Start: 03-27-2023 ECHO, Provider: PB GRECO [facility] ULTRASOUND 01,[id number], Status: Pen, Time: 1:00 PM ECHO, Provider: [place] CROOKSI ULTRASOUND 01,[id number], Status: Pen, Time: 1:00 PM [facility] [employer] 250 DO Work Phone: Start: 02-24-2023 FUV, Provider: Bonita Kingsley, Status: Pen, Time: 9:20 AM FUV, Provider: Bonita Kingsley, Status: Pen, Time: 9:20 AM [facility] Work Phone: Start: 02-13-2023 COVID-19 Vaccine ( season) COVID-19 Vaccine ( season) [facility] Start: 02-13-2023 Influenza vaccination Influenza Vacc ine (#1) [facility] Start: 01-19-2023 Bacteria identified in Blood by Culture [facility] Start: 03-05-2022 FUV, Provider: Bonita Kingsley, Status: Pen, Time: 11:10 AM FUV, Provider: Bonita Kingsley, Status: Pen, Time: 11:10 AM [facility] Work Phone: Start: 02-20-2022 ECHO, Provider: PB GRECO [facility] ULTRASOUND 01,[id number], Status: Pen, Time: 10:45 AM ECHO, Provider: [place] [facility]TR[facility]OUND ,[id number], Status: Pen, Time: 10:45 AM [facility] Work Phone: Start: 02-13-2022 FUV, Provider: Bonita Kingsley, Status: Pen, Time: 11:20 AM FUV, Provider: Bonita Kingsley, Status: Pen, Time: 11:20 AM [facility] Work Phone: Start: 02-04-2022 Registered Recurring Traumatic wound [facility] [place] Start: 02-03-2022 End: 02-03-2022 Departed Referred Departed Referred [facility] [place] Start: 05-23-2021 COVID-19 Vaccine (4 - Pfizer series) COVID-19 Vaccine (4 - Pfizer series) [facility] Start: 03-03-2021 Creatinine measurement Creatinine Le johnny [facility] Start: 03-03-2021 Potassium measurement Potassium Leve l [facility] Start: 02-28-2020 Basic metabolic 1998 panel - Serum or Plasma Basic Metabolic Panel AA-Ubzjfkmyia-ZMV [facility] [address] [place] Work Phone: Start: 02-28-2020 CBC W Auto Different ial panel - Blood Complete Blood Count IZ-Kzlhaimipg-JHJ [facility] [address] [place] Work Phone: Start: 02-28-2020 PT/INR PT/INR MG-Cardiol ogy-[facility] [address] [place] Work Phone: Start: 02-27-2020 Assay of magnesium Magnesium, Serum JU-Odckihokhb-ORU [facility] [address] [place] Work Phone: Start: 02-27-2020 CBC W Auto Different ial panel - Blood Complete Blood Count YQ-Vviruxladq-MFR [facility] [address] [place] Work Phone: Start: 02-27-2020 PT/INR PT/INR MG-Cardiol ogy-[facility] [address] [place] Work Phone: Start: 02-27-2020 Urea, electrolytes a nd creatinine measurement Renal Function Panel GC-Rccznlzoxi-SYD [facility] [address] [place] Work Phone: Start: 11-02-2012 DTaP/Tdap/Td Vaccine s (1 - Tdap) DTaP/Tdap/Td Vaccines (1 - Tdap) [facility] Start: 2011 RSV High Risk: (Elde rly (60+) or Population) (1 - 1-dose 75+ series) RSV High Risk: (Elderly (60+) or Population) (1 - 1-dose 75+ series) [facility] Start: 1996 Hepatitis B Vaccines (1 of 3 - Risk 3-dose series) Hepatitis B Vaccines (1 of 3 - Risk 3-dose series) [facility] Start: 1986 Zoster Vaccines (1 of 2) Zoster Vacc winnie (1 of 2) [facility] Start: 1955 Hepatitis A Vaccines (1 of 2 - Risk 2-dose series) Hepatitis A Vaccines (1 of 2 - Risk 2-dose series) [facility] Start: 1955 Urine screening for protein Diabetes: Urine Protein Screening [facility] Start: 1946 Diabetic foot examination Diabetes: Foot Exam [facility] Start: 1946 Glaucoma screening Diabetes: R etinopathy Screening [facility] Start: 1936 Hemoglobin A1c measurement Diabetes: Hemoglobin A1C [facility] Start: 1936 Lipid panel Lipid Panel [facility] Start: 1936 Medicare Annual Well ness Visit Medicare Annual Wellness Visit (AWV) [facility] Start: 1936 Screening for osteoporosis Bone Density Scan [facility] Bilirubin measurement [facility] Body weight [facility] Calcium carbonate/To angel in [facility] Calcium hydrogen phosphate dihydrate/Total in [facility] Calcium oxalate monohydrate/Total in [facility] Calcium phosphate level [facility] Calculus analysis wi th calculus photography [Interpretation] in [facility] Calculus analysis, qualitative [facility] Calculus analysis, quantitative [facility] Calculus analysis, quantitative, infrared spectroscopy [facility] CBC W Auto Different ial panel - Blood CBC and differential Lab Routine Anemia, unspecified type Ordered: 06/13/2024 [facility] Comment on above: Ordered: 06/13/2024 Cellular material [Mass/mass] of Stone by Estimated [facility] Cholesterol [Mass/volume] in Serum or Plasma [facility] Cobalamin (Vitamin B 12) [Mass/volume] in Serum or Plasma Vitamin B12 Lab Routine Anemia, unspecified type Ordered: 06/13/2024 [facility] Work Phone: Comment on above: Ordered: 06/13/2024 Comprehensive metabo lic 2000 panel - Serum or Plasma Comprehensive metabolic panel Lab Routine Prediabetes Congestive heart failure, NYHA class 2, unspecified congestive heart failure type (CMS/HCC) Ordered: 06/13/2024 [facility] Comment on above: Ordered: 06/13/2024 Cystine measurement [facility] Determination of calculus chemical composition [facility] Evaluation procedure [facility] Ferritin [Mass/volum e] in Serum or Plasma Ferritin Lab Routine Anemia, unspecified type Ordered: 06/13/2024 [facility] Comment on above: Ordered: 06/13/2024 Hydroxyapatite [Ener gy Difference] in [address] [facility] Iron and Iron bindin g capacity panel - Serum or Plasma Iron and TIBC Lab Routine Anemia, unspecified type Ordered: 06/13/2024 [facility] Comment on above: Ordered: 06/13/[address] [facility] Newberyite/Total in [facility] Patient Education [facility] Work Phone: Patient referral [facility] Work Phone: Respiratory pathogen s DNA and RNA panel - Nasopharynx by SHARRI with non-probe detection [facility] Specimen source subj ect [Type] [facility] Triamterene measurement [facility] Triple phosphate/Tot al in [facility] NR-Lvgzbtndtn-I MILTON [place] [address] [place] Work Phone: [facility] NEGATED: Highlighted row has been ruled out! Planned Goals not documented DK-Nvjkpzgdsw-DZP Dominick H[place] [address] [place] Work Phone: Immunizations Immunization Date Immunization Notes Care Provider Jc archer 12-20-2023 tetanus toxoid, redu luciano diphtheria toxoid, and acellular pertussis vaccine, adsorbed MD María Anderson Work Phone: [facility] 05-14-2023 Influenza, Seasonal, Quadrivalent, Adjuvanted Dyan Risaliti PTA Work Phone: [facility] 05-14-2023 influenza virus vaccine, unspecified formulation Dyan Risaliti PTA Work Phone: [facility] 05-14-2022 influenza, high dose seasonal, preservative-free María Anderson Work Phone: [facility] [address] DO Work Phone: 05-14-2022 influenza virus vaccine, unspecified formulation [address] Work Phone: 03-28-2021 Fluzone High-Dose Quadrivalent 0.7 ML Intramuscular Suspension Prefilled Syringe Trey العلي Work Phone: [facility] 250 DO Work Phone: 03-28-2021 Pfizer-BioNTech COVID-19 Vacc 30 MCG/0.3ML Intramuscular Suspension Trey العلي Work Phone: [facility] 250 DO Work Phone: 07-26-2020 Pfizer-BioNTech COVID-19 Vacc 30 MCG/0.3ML Intramuscular Suspension Trey العلي Work Phone: [facility] 07-05-2020 Pfizer-BioNTech COVID-19 Vacc 30 MCG/0.3ML Intramuscular Suspension Trey العلي Work Phone: [facility] 05-25-2020 influenza virus vaccine, unspecified formulation Trey العلي Work Phone: [facility] Work Phone: 05-25-2020 Seasonal trivalent influenza vaccine, adjuvanted, preservative free Trey العلي Work Phone: MU-Xsxwgeqjdg-QOI [facility] [address] [place] Work Phone: 05-04-2019 Seasonal trivalent influenza vaccine, adjuvanted, preservative free Trey العلي Work Phone: UF-Lwtaxprmpv-LAL [facility] [address] [place] Work Phone: 03-03-2018 Seasonal trivalent influenza vaccine, adjuvanted, preservative free Trey العلي Work Phone: NU-Lpkmrcqxtw-KNT [facility] [address] [place] Work Phone: 05-18-2017 pneumococcal conjuga te vaccine, 13 valent Trey العلي Work Phone: GX-Xbvarozwvw-VLM [facility] [address] [place] Work Phone: 05-01-2017 influenza, high dose seasonal, preservative-free Trey العلي Work Phone: [facility] 04-30-2017 influenza, high dose seasonal, preservative-free Fani Johnston Other [employer] Other 04-30-2017 influenza virus vaccine, unspecified formulation MD María Anderson Work Phone: [facility] 05-20-2016 influenza virus vaccine, unspecified formulation MD María Anderson Work Phone: [facility] 05-20-2016 influenza, high dose seasonal, preservative-free Fani Johnston Other [employer] Other 05-18-2015 seasonal influenza, intradermal, preservative free Trey العلي Work Phone: EZ-Sicstiioit-DTV [facility] [address] [place] Work Phone: 04-26-2014 influenza, high dose seasonal, preservative-free Fani Johnston Other [employer] Other 04-26-2014 influenza virus vaccine, unspecified formulation MD María Anderson Work Phone: [facility] 04-08-2013 seasonal influenza, intradermal, preservative free Dyan Caro NP Work Phone: [facility] 11-01-2012 tetanus and diphther ia toxoids, adsorbed, preservative free, for adult use (5 Lf of tetanus toxoid and 2 Lf of diphtheria toxoid) Fani Johnston Other [facility] 10-02-2010 pneumococcal polysaccharide vaccine, 23 valent Trey العلي Work Phone: [facility] influenza virus vaccine, unspecified formulation Trey العلي Work Phone: [facility] Work Phone: Comment on above: 2010Mar 20122012 pneumococcal polysaccharide vaccine, 23 valent Trey العلي Work Phone: [facility] Work Phone: Comment on above: 2010 Payers Date Payer Category Payer Self-pay [id number] 2021 Private Health Insurance [employer] [id number] 2021 Unknown 2001 Medicare [id number]. 1.13.647.2. [id number] 1959 Medicare [id number] 2.16.840.1.736683.19 1959 Unknown [id number] 2.16.840.1.397348.19 1936 Unknown [id number] 2.16.840.1.949022.3.579.2. 1068 1936 Unknown [id number] 2.16.840.1.016302.3.579.2. 593 1936 Unknown [id number] 2.16.840.1.926228.3.579.2. 593 1936 Unknown [id number] 2.16.840.1.891658.3.579.2. 593 1936 Unknown [id number] 2.16.840.1.510752.3.579.2. 593 1936 Unknown [id number] 2.16.840.1.286105.3.579.2. 593 1936 Unknown [id number] 2.16.840.1.530062.3.579.2. 593 1936 Unknown [id number] 2.16.840.1.470393.3.579.2. 593 1936 Unknown [id number] 2.16.840.1.467918.3.579.2. 593 1936 Unknown [id number] 2.16.840.1.922584.3.579.2. 593 1936 Unknown [id number] 2.16.840.1.481949.3.579.2. 593 1936 Unknown [id number] 2.16.840.1.856167.3.579.2. 593 1936 Unknown [id number] 2.16.840.1.165381.3.579.2. 593 1936 Unknown [id number] 2.16.840.1.086938.3.579.2. 593 1936 Unknown [id number] 2.16.840.1.633399.3.579.2. 593 1936 Unknown [id number] 2.16.840.1.736586.3.579.2. 593 1936 Unknown [id number] 2.16.840.1.679724.3.579.2. 593 1936 Unknown [id number] 2.16.840.1.903091.3.579.2. 593 1936 Unknown [id number] 2.16.840.1.835886.3.579.2. 593 1936 Unknown [id number] 2.16.840.1.135541.3.579.2. 593 1936 Unknown [id number] 2.16.840.1.958047.3.579.2. 593 1936 Unknown [id number] 2.16.840.1.963617.3.579.2. 593 1936 Unknown [id number] 2.16.840.1.730841.3.579.2. 593 1936 Unknown [id number] 2.16.840.1.515104.3.579.2. 593 1936 Unknown [id number] 2.16.840.1.387330.3.579.2. 356 1936 Unknown [id number] 2.16.840.1.585967.3.579.2. 1246 1936 Unknown [id number] 2.16.840.1.291888.3.579.2. 1244 1936 Unknown [id number] 2.16.840.1.781500.3.579.2. 1244 1936 Unknown [id number] 2.16.840.1.198668.3.579.2. 1244 1936 Unknown [id number] 2.16.840.1.406168.3.579.2. 1259 1936 Unknown [id number] 2.16.840.1.160506.3.579.2. 1259 1936 Unknown [id number] 2.16.840.1.685684.3.579.2. 1259 1936 Unknown [id number] 2.16.840.1.145334.3.579.2. 125 1936 Unknown [id number] 2.16.840.1.155902.3.579.2. 125 1936 Unknown [id number] 2.16.840.1.916786.3.579.2. 125 1936 Unknown [id number] 2.16.840.1.956778.3.579.2. 125 1936 Unknown [id number] 2.16.840.1.604061.3.579.2. 125 1936 Unknown [id number] 2.16.840.1.299314.3.579.2. 125 1936 Unknown [id number] 2.16.840.1.034600.3.579.2. 125 1936 Unknown [id number] 2.16.840.1.835841.3.579.2. 125 1936 Unknown [id number] 2.16.840.1.402325.3.579.2. 125 1936 Unknown [id number] 2.16.840.1.600323.3.579.2. 125 1936 Unknown [id number] 2.16.840.1.915724.3.579.2. 125 1936 Unknown [id number] 2.16.840.1.457363.3.579.2. 727 1936 Unknown [id number] 2.16.840.1.257490.3.579.2. 727 1936 Unknown [id number] 2.16.840.1.615197.3.579.2. 8 1936 Unknown [id number] 2.16.840.1.761602.3.579.2. 1936 Unknown [id number] 2.16.840.1.963336.3.579.2. 1936 Unknown [id number] 2.16.840.1.545743.3.579.2. 1936 Unknown [id number] 2.16.840.1.553021.3.579.2. 1936 Unknown [id number] 2.16.840.1.863875.3.579.2. 1936 Unknown [id number] 2.16.840.1.590499.3.579.2. 1936 Unknown [id number] 2.16.840.1.289062.3.579.2. 1936 Unknown [id number] 2.16.840.1.029492.3.579.2. 1936 Unknown [id number] 2.16.840.1.506259.3.579.2. 8 1936 Unknown [id number] 2.16.840.1.374645.3.579.2. Medicare Medicare Rehab-IP Part A [id number] Unknown [id number] Unknown [id number] 2.16.840.1.495818.3.579.2. 531 Unknown [id number] 2.16.840.1.151986.3.579.2. 531 Unknown [id number] 2.16.840.1.269329.3.579.2. 531 Unknown [id number] 2.16.840.1.643756.3.579.2. 531 Unknown [id number] 2.16.840.1.509205.3.579.2. 531 Unknown [id number] 2.16.840.1.159145.3.579.2. 531 Unknown [id number] 2.16.840.1.810967.3.579.2. 531 Unknown [id number] 2.16.840.1.015411.3.579.2. 531 Unknown [id number] 2.16.840.1.453738.3.579.2. 531 Unknown [id number] 2.16.840.1.829643.3.579.2. 531 Social History Date Type Detail Facility Start: 09-29-2023 End: 06-13-2024 Former smoker Former smoker FD-Vtbnqxnlhl-LIK Dominick [place] [address] [place] Work Phone: Comment on above: daily; QUIT 2000 1PPD; 2-3 coffees daily; Start: 09-29-2023 End: 06-13-2024 Sex Assigned At [employer] Other Start: 02-04-2022 End: 03-30-2024 Tobacco smoking status KYIS Ex-smoker (finding) [facility] Start: 1935 Sex Assigned At Male [facility] Start: 01-19-2023 End: 02-26-2024 Tobacco smoking status KYIS Never smoked tobacco (finding) [facility] Tobacco smoking status [facility] Tobacco smoking consumption unknown [facility] Work Phone: Start: 1935 Sex Assigned At Not on file [facility] Work Phone: Start: 03-24-2023 End: 05-18-2024 Exposure to SARS-CoV-2 (event) Not sure [facility] End: 06-15-2001 History of tobacco use Current smoker [facility] Work Phone: End: 06-15-2001 History of tobacco use Cigarette Smoker [facility] Work Phone: Start: 09-29-2023 Tobacco use and exposure Former smokeless tobacco user [facility] Work Phone: History of tobacco use Chews Tobacco [facility] Work Phone: Start: 09-29-2023 End: 04-06-2024 Alcoholic beverage intake Current drinker of alcohol (finding) [facility] Work Phone: Start: 01-07-2023 End: 03-30-2024 Tobacco use and exposure Smokeless tobacco non-user [facility] Start: 12-13-2022 Tobacco Comment Ex-heavy cigar ettes smoker (20-30/day) [facility] Start: 01-07-2023 Alcohol Comment .caffeine intake:Coffee, 3-4 cups per day. [facility] Start: 06-15-2024 Sex Male (finding) [facility] NEGATED: Highlighted row - - GV-Jvpwemyudw-PPT Dominick [place] [address] [place] Work Phone: Medical Equipment Procedure Code Equipment Code Equipment Origin al Text Equipment Identifier Dates Cystoscopy, with ureteral calculus manipulation and stent placement ()[id number] FDA Start: 05-05-2023 Arthroplasty, hip, total, anterior approach ()[id number] FDA Start: 12-18-2020 Arthroplasty, hip, total, anterior approach ()[id number] FDA Start: 12-18-2020 Arthroplasty, hip, total, anterior approach ()[id number] FDA Start: 12-18-2020 Arthroplasty, hip, total, anterior approach ()[id number] FDA Start: 12-18-2020 Arthroplasty, hip, total, anterior approach ()[id number] FDA Start: 12-18-2020 Arthroplasty, hip, total, anterior approach [id number] FDA Start: 12-18-2020 Goals Date Patient Goal Desired Activity /State Functional Status Date Assessment Result Facility 02-27-2024 Functional status Patient at Baseline [facility] Work Phone: 01-22-2024 Functional status Patient at Baseline [facility] Work Phone: 01-21-2024 Functional status Patient at Baseline [facility] Work Phone: 12-29-2023 Functional status Patient is Pro gressing Toward Baseline [facility] Work Phone: 12-23-2023 Functional status Patient is Pro gressing Toward Baseline [facility] Work Phone: 12-20-2023 Functional status Patient is Pro gressing Toward Baseline [facility] Work Phone: 06-06-2023 Functional status Patient at Baseline [facility] Work Phone: NEGATED: Highlighted row Functional performance Functional status health issues are not documented Disease QB-Hclxoymifw-NAD Dominick [place] [address] [place] Work Phone: Mental Status Date Assessment Result Facility 02-27-2024 Cognitive function Patient at Baseline [facility] Work Phone: 01-22-2024 Cognitive function Patient at Baseline [facility] Work Phone: 12-29-2023 Cognitive function Patient at Baseline [facility] Work Phone: 12-23-2023 Cognitive function Patient is Pr ogressing Toward Baseline [facility] Work Phone: 12-20-2023 Cognitive function Patient at Baseline [facility] Work Phone: 06-06-2023 Cognitive function Cognitive Sta tus Patient at Baseline [facility] Work Phone: NEGATED: Highlighted row Cognitive function [Interpretation] Cognitive status health issues are not documented Disease LQ-Dlhfixiidd-EOT Dominick [place] [address] [place] Work Phone: Clinical Notes 03-02-2020 to 06-15-2024 Dyan Caro NP - 06/13/2024 2:00 PM Tommy Kingsley MD - 05/18/2024 9:30 AM ESTPatient Remy Blum MA - 04/25/2024 11:11 AM Tommy Kingsley MD - 04/18/2024 2:00 PM EST Note Date & Type Note Facility 06-15-2024 Radiology Diagnostic study note [facility] Main [place] [address] [place] [address] CT Scan Report Signed Patient: Fani Chua MR#: [id number] : 1935 Acct:[id number] Age/Sex: 89 / M ADM Date: 5 Loc: ER Room: Type: [facility] ER Attending Dr: Copies to: Gely Lin APRN~ Ordering Provider: Gely Lin APRN Date of Service: 06/15/24 CT/CT abdomen pelvis wo con: abdominal pain CT Abdomen and Pelvis withoutcontrast TECHNIQUE: Axial imaging with 2-D reconstruction. . The CT exam was performed using one or more the following dose reduction techniques: Automated exposure control, adjustment of the MA and/or Kv according to patient size, or use of theiterative reconstruction technique. COMPARISON: 12/20/2023 History: Abdominal pain. Left flank pain. Fever. History of prostate and bladder cancer nonspecific mild left perinephric stranding. LIMITATIONS: None LOWER THORAX cardiomegaly. Mild atelectasis. LIVER: Hepatic steatosis hepatic granulomas. GALLBLADDER: Cholelithiasis identified. BILE DUCTS: No dilatation SPLEEN: Splenic granulomas. PANCREAS: Unremarkable ADRENAL GLANDS: Unremarkable KIDNEYS:Bilateral renal cysts bilateral renal scarring/atrophy. AORTA: No abdominal aortic aneurysm identified. Atherosclerosis RETROPERITONEUM: No significant retroperitoneal abnormalities identified. MESENTERY:Unremarkable SMALL BOWEL: The small bowel loops are nondistended. APPENDIX: The appendix is normal. COLON: Diverticulosis. URINARY BLADDER: Streak artifact limits assessment. REPRODUCTIVE SYSTEM: Streak artifact limits assessment. PNEUMOPERITONEUM: None PERITONEAL FLUID:None BONY STRUCTURES: Bilateral hip arthroplasties no pelvic surgical clips likely secondary to prostatectomy. ABDOMINAL WALL: Unremarkable CT/CT abdomen pelvis wo con IMPRESSION: Nonspecific left perinephric stranding. Bilateral renal cysts. No hydronephrosis. No visualized renal or ureteral stone. Limited assessment of the distal ureter and urinary bladder secondary streak artifact. Colonic diverticulosis. Impression dictated by: Trey Murray M.D.06/15/2024 2:39 PM Dictation Location: RADIO-PC-20 Transcribed By: [facility] 06/15/24 1439 Dictated By: Trey Murray DO 06/15/24 1433 Signed By: 06/15/[address] [facility] 06-13-2024 History of Presen t illness Narrative Images from the original note were not included. Fani Chua is a 89 y.o. male presents with chief complaint of 6 Month Follow Up and Medicare Annual Wellness Visit Subsequent HPI: History of Present Illness The patient presents for evaluation of pain management, ear blockage, emphysema, and health maintenance. He reports a history of falls, with the most recent incident occurring in 12/2023 and the previous one on 09/15/2023. He has been engaged in pain management therapy with Buck Carrillo, which he describes as not particularly effective. His primary concern is mobility, specifically his ability to walk. He has not undergone any recent blood work. He has a history of type 2 diabetes, with his A1c levels never exceeding 5.9. He has not experienced any gout flare-ups for several months. He has no history of hypertension. His daily diet includes three jumbo eggs and dial for breakfast. He has no history of chickenpox and retains his tonsils. He does not have a living will or power of personal injury attorney. He expresses a desire for resuscitation in the event of cardiac arrest but does not wish to be maintained on life support. He infrequently uses tramadol for pain relief. He reports experiencing ear blockage, which he describes as feeling like a plug. He has not used Debrox for this condition. He also reports occasional itching in the ear. He was informed by an anesthesiologist about the presence of emphysema in his lungs, which he attributes to a long history of smoking. He quit smoking. He has been experiencing a persistent tickling sensation and mucus production in his lungs for the past few months, necessitating frequent coughing. Despite these efforts, he reports insufficient phlegm production to expectorate. His daily fluid intake includes 2 to 3 cups of coffee in the morning, 2 beers, one before dinner and one during the meal, and 1 to 2 servings of Coke or Pepsi. He acknowledges inadequate water consumption. SOCIAL HISTORY The patient smoked for many years but has since quit. He drinks two beers a day, one before dinner and one during the meal. MEDICATIONS Current: Tramadol, indomethacin, eplerenone I have reviewed and reconciled the history and medication list with the patient today. CURRENT PCP/CARE TEAM: Patient Care Team: María Anderson MD as PCP - General (Internal Medicine) María Anderson MD as PCP - ACO Reach Frank Hook MD as Referring Physician (Dermatology) Julio C Ramirez MD as Referring Physician (Urology) Bonita Kingsley MD as Referring Physician (Cardiology) Over the past 2 weeks, how often have you been bothered by any of the following problems? Little interest or pleasure in doing things: Not at all Feeling down, depressed, or hopeless: Not at all Patient Health Questionnaire-2 Score: 0 Over the past 2 weeks, how often have you been bothered by any of the following problems? Trouble falling or staying asleep, or sleeping too much: Not at all Feeling tired or having little energy: Not at all Poor appetite or overeating: Not at all Feeling bad about yourself - or that you are a failure or have let yourself or your family down: Not at all Trouble concentrating on things, such as reading the newspaper or watching television: Not at all Moving or speaking so slowly that other people could have noticed? Or the opposite - being so fidgety or restless that you have been moving around a lot more than usual.: Not at all Thoughts that you would be better off or hurting yourself in some way: Not at all Patient Health Questionnaire-9 Score: 0 Melvin Fall Risk History of Falling, Immediate or Within 3 Months: Yes Secondary Diagnosis: No Ambulatory Aid: Crutches/cane/walker Intravenous Therapy/Heparin Lock: No Gait/Transferring: Normal/bedrest/immobile Health Risk Assessment Form Do you need help eating, bathing, using the toilet, dressing, or getting around your home?: No Can you prepare your own meals?: Yes Can you do your own housework without help?: Yes Can you shop for groceries or clothes without help?: Yes Do you exercise for about 20 minutes 3 or more days a week?: No How confident are you that you can control and manage most of your health problems?: Very confident Can you mange your money, credit cards and accounts, pay bills and taxes?: Yes Vision Screening: Yes, patient sees regular credit clerk/solaris administrator Hearing Screening: Yes, concerned about hearing loss Cognitive Screening Three Word Registration: Banana, [place], Chair Clock Drawing: Normal Clock - 2 Three Word Recall: All 3 words correct - 3 Total Score (0-5 Points): 5 HISTORIES: PAST MEDICAL HISTORY: Past Medical History: Diagnosis Date A-fib ([facility]/HCC) AVN (avascular necrosis of bone) ([facility]) Bladder infection COVID-19 vaccine administered pfizer Diverticulitis Diverticulosis 2011 Diverticulosis of colon without hemorrhage Eczema Kidney stone Labyrinthitis 11/2008 Menstrual bleeding problem Neuroma right foot Prostate cancer (CMS/HCC) SCC (squamous cell carcinoma) 2013 chest Toe pain 1995 right hallux Type 2 diabetes mellitus ([facility]/HCC) Ureteral calculus, left Visual impairment SURGICAL HISTORY: Past Surgical History: Procedure Laterality Date CARDIOVERSION 2007 COLONOSCOPY 2011 COLONOSCOPY 05/27/2018 CYSTOSCOPY 01/2009 CYSTOSCOPY cystoscopy ureteroscopy,left ureteral calculus stricture CYSTOSCOPY 05/05/2023 NEUROMA SURGERY Right [place] TOTAL HIP ARTHROPLASTY Left 03/29/2009 PROSTATECTOMY 1996 PYELOGRAM RETROGRADE UNI OR BI Right 05/05/2023 hydronephrosis ROTATOR CUFF REPAIR Left 04/2015 SKIN CANCER EXCISION Mid frontal scalp, SCC, Mohs Surgery 02/04/23 TOE SURGERY Right 1996 R hallux fused TOTAL HIP ARTHROPLASTY Right 12/18/2020 TUMOR EXCISION 1996 bladder cancer SOCIAL HISTORY: Social History Tobacco Use Smoking status: Former Current packs/day: 0.00 Types: Cigarettes Quit date: 06/15/2001 Years since quittin.0 Smokeless tobacco: Never Tobacco comments: Ex-heavy cigarettes smoker (20-30/day) Vaping Use Vaping status: Never Used Substance Use Topics Alcohol use: Yes Alcohol/week: 14.0 standard drinks of alcohol Types: 14 Cans of beer per week Comment: .caffeine intake:Coffee, 3-4 cups per day. Drug use: Never Depression: Not at risk (06/13/2024) PHQ-2 PHQ-2 Score: 0 FAMILY HISTORY: Family History Problem Relation Name Age of Onset Coronary artery disease Father Diabetes Maternal Grandmother Cancer Paternal Grandmother Melanoma Neg Hx MEDICATIONS: Current Outpatient Medications Medication Instructions albuterol HFA (Ventolin HFA) 90 mcg/act inhaler 2 puffs, Inhalation, Every 6 hours PRN, Do not use at same time as Tramadol aspirin 81 mg, Daily atorvastatin (LIPITOR) 40 mg, Oral, Daily enalapril (VASOTEC) 2.5 mg, Daily Multiple Vitamins-Minerals (PRESERVISION AREDS 2 PO) Take by mouth pantoprazole (PROTONIX) 40 mg, Oral, Daily before breakfast traMADol (ULTRAM) 50 mg, Oral, Every 8 hours PRN warfarin (COUMADIN) 10 mg, Oral, Nightly ALLERGIES: Allergies Allergen Reactions Amoxicillin Swelling Welts, facial swelling Welts, facial swelling Welts, facial swelling Bacitracin Neomycin Penicillins Other, Rash, Swelling and Angioedema Polymyxin B Wound Dressing Adhesive Rash Other Reaction(s): Rash PHYSICAL EXAM: Visit Vitals BP 120/80 Pulse 64 Wt 163 lb SpO2 94% BMI 24.07 kg/m Smoking Status Former BSA 1.9 m BP Readings from Last 3 Encounters: 06/13/24 120/80 04/06/24 130/64 03/30/24 145/83 Wt Readings from Last 3 Encounters: 06/13/24 163 lb 03/30/24 162 lb 02/17/24 165 lb 9.6 oz Physical Exam HENT: Right Ear: Tympanic membrane and external ear normal. Left Ear: Tympanic membrane normal. There is impacted cerumen. Mouth/Throat: Mouth: Mucous membranes are moist. Neck: Thyroid: No thyroid mass or thyromegaly. Vascular: No carotid bruit. Cardiovascular: Rate and Rhythm: Normal rate. Rhythm irregular. Heart sounds: No murmur heard. No friction rub. No gallop. Pulmonary: Effort: Pulmonary effort is normal. Breath sounds: Normal breath sounds. Abdominal: General: Bowel sounds are normal. Palpations: Abdomen is soft. Tenderness: There is no abdominal tenderness. Musculoskeletal: Right lower leg: No edema. Left lower leg: No edema. Lymphadenopathy: Cervical: No cervical adenopathy. Skin: General: Skin is warm and dry. Neurological: Mental Status: He is alert and oriented to person, place, and time. Psychiatric: Thought Content: Thought content normal. Results Laboratory Studies A1c was 5.6. Imaging CAT scan of chest in September 2023 did not show any significant findings. ASSESSMENT AND PLAN: Assessment & Plan 1. Mixed hyperlipidemia (CMS/HCC) (Primary) Continue current medication, eat a healthy diet, and exercise regularly. - Lipid panel; Future - Lipid panel 2. Prediabetes Continue to minimize added sugars, carbohydrates and control overall calories. Encouraged regular exercise will help to increase your sensitivity to insulin and can help with weight loss or maintenance to prevent progression to diabetes. - Comprehensive metabolic panel - Comprehensive metabolic panel; Future - Hemoglobin a1c with eag; Future - Comprehensive metabolic panel - Hemoglobin a1c with eag 3. Coronary artery disease involving [place] coronary artery of [place] heart without angina pectoris (CMS/HCC) Doing well. Denies any anginal symptoms. Continue aggressive risk factor modification. Continue current medications. Call if any problems. 4. Chronic atrial fibrillation (HCC) (CMS/HCC) Heart rate is controlled. The patient reports no symptoms. There have been no signs of any bleeding. Will continue current medication regimen. Call if any problems. 5. Congestive heart failure, NYHA class 2, unspecified congestive heart failure type (CMS/HCC) Denies problems with SOB, MONIQUE, or increased edema with weight gain. Continue current medication regimen. Eat a heart healthy diet low in sodium. Monitor weights regularly and call if increased more than 5 pounds. Call immediately if any problems or concerns. - Comprehensive metabolic panel 6. Gastroesophageal reflux disease without esophagitis Stable. Continue current regimen. 7. Anemia, unspecified type Hgb 11.6 on last labs. Continue to monitor. - Vitamin B12 - Iron and TIBC - Ferritin - CBC and differential - CBC and differential; Future - CBC and differential 8. Lumbosacral spondylosis without myelopathy Doing well. OARRS report was reviewed and there were no concerns. Continue current regimen. Will follow-up in 3 months to reassess and review OARRS report. He reports ongoing pain issues and difficulty walking. He has been managing pain with tramadol but does not take it often. A prescription for tramadol 50 mg will be sent to [facility]. He is advised to inform us if he needs a larger quantity in the future, and Dr. Anderson can adjust the prescription accordingly. - traMADol (Ultram) 50 MG tablet; Take 1 tablet (50 mg) by mouth every 8 (eight) hours if needed for severe pain Dispense: 60 tablet; Refill: 0 9. History of gout Denies flare ups. Call if problems develop. 10. Centrilobular emphysema (CMS/HCC) He has a history of smoking and was previously informed by an anesthesiologist about having emphysema. He reports symptoms of mucus and coughing. He is advised to increase fluid intake, particularly hot liquids like tea with honey, to help thin the mucus. An inhaler may be considered if symptoms persist.Reviewed CXR, CT chest which were stable in the past. Sample inhaler of Breztri given and instructed him on how to use. Discussed using this to see if it helps but not taking with Tramadol. Discussed using Albuterol for management PRN since this is more affordable. Follow up if not improving or for questions/concerns. - albuterol HFA (Ventolin HFA) 90 mcg/act inhaler; Inhale 2 puffs every 6 (six) hours if needed for wheezing or shortness of breath Do not use at same time as Tramadol Dispense: 8 g; Refill: 0 11. Medicare annual wellness visit, subsequent Patient here for annual Medicare Wellness visit with Mike Caro NP. Demographics were updated. Self-assessment was completed. Past medical, family, and social history were updated. The medication list, including supplements being taken, was updated. A list of other current medical providers was established/updated. Time was spent discussing health maintenance issues, ordering proper testing, and a schedule was provided regarding recommended screening. We discussed safety issues and fall risk. Depression screening was completed and addressed. Fall screening was completed and addressed. Cognitive function was assessed by direct observation and assessment of ability to perform ADL's and IADL's was done. The current BMI was provided and will continue to be monitored at routine office visits as well. Major risk factors for chronic disease including family history were discussed and a list was provided with the care plan. 12. ACP (advance care planning) We also discussed Advanced Directives and code status. Pt has LW/POA. Pt wishes to be a FULL code. Ear blockage. He reports a plugged left ear with dry cerumen. He is advised to use Debrox eardrops, available over the counter, for 5 minutes daily for 5 to 7 days. After this period, he can return for an ear cleaning if needed. Dr. Anderson was present in the office at the time of visit today and is supervising patient care. I am following Dr. Anderson's established plan of care for the above issues. documented in this encounter [facility] 05-18-2024 History of Presen t illness Narrative Subjective Fani Chua is a 88 y.o. male Chief Complaint Blood Pressure Check HPI Patient is in the office for blood pressure check since we introduced enalapril 2.5 mg daily for Bystolic dysfunction. He tolerated the medicine fairly well, his blood pressure and heart rate are in the normal range. No further changes at this time will take place. Review of Systems All other systems reviewed and are negative. Vitals: 05/18/24 0938 05/18/24 0941 BP: 112/64 120/64 BP Location: Left arm Right arm Patient Position: Sitting Sitting Pulse: 62 Weight: 74.3 kg (163 lb 12.8 oz) Height: 1.753 m (5' 9 ) Objective Physical Exam Allergies Penicillins, Neomycin, Bacitracin, and Polymyxin b Current Medications Current Outpatient Medications: aspirin 81 mg EC tablet, Take 1 tablet (81 mg) by mouth once daily., Disp: , Rfl: atorvastatin (Lipitor) 40 mg tablet, Take 1 tablet (40 mg) by mouth once daily., Disp: 90 tablet, Rfl: 3 enalapril (Vasotec) 2.5 mg tablet, Take 1 tablet (2.5 mg) by mouth 2 times a day., Disp: 180 tablet, Rfl: 3 pantoprazole (ProtoNix) 40 mg EC tablet, Take 1 tablet (40 mg) by mouth., Disp: , Rfl: traMADol (Ultram) 50 mg tablet, Take 1-2 tablets (50-100 mg) by mouth every 6 hours if needed., Disp: , Rfl: warfarin (Coumadin) 5 mg tablet, Take 2 tablets (10 mg) by mouth. Take as directed by [facility], Disp: , Rfl: Assessment/Plan 1. Congestive heart failure, NYHA class 2, unspecified congestive heart failure type Follow Up In Cardiology 2. BMI 24.0-24.9, adult 3. Former smoker Scribe Attestation By signing my name below, I, Felipa Pascal LPN , Yaneli attest that this documentation has been prepared under the direction and in the presence of Bonita Kingsley MD. Provider Attestation - Scribe documentation All medical record entries made by the Scribe were at my direction and personally dictated by me. I have reviewed the chart and agree that the record accurately reflects my personal performance of the history, physical exam, discussion and plan. documented in this encounter [facility] Work Phone: 05-18-2024 Instructions Felipa Sena LPN - 05/18/2024 9:30 AM EST Please bring all medicines, vitamins, and herbal supplements with you when you come to the office. Prescriptions will not be filled unless you are compliant with your follow up appointments or have a follow up appointment scheduled as per instruction of your physician. Refills should be requested at the time of your visit. Same medications May follow up documented in this encounter [facility] Work Phone: 04-25-2024 History of Presen t illness Narrative Pt calls for [facility]ill [facility]. Last fill 04/06. Rx pending. documented in this encounter [facility] 04-18-2024 History of Presen t illness Narrative Subjective Fani Chua is a 88 y.o. male Chief Complaint Follow-up HPI Patient is in the office for follow-up for TAVR and left ventricular systolic dysfunction. Recent echocardiogram from last week revealed ejection fraction 40%. The valve function is normal. Previous ejection fraction from last year was 45%. The change is subtle. He remains asymptomatic with no heart failure symptomatology. He is in chronic atrial fibrillation and has been on Coumadin therapy without any bleeding complications. He reports no volume overload and his blood pressure is under control. His lungs are clear and has no lower extremity edema Assessment/recommendations: 1-history of severe aortic stenosis status post TAVR 2019 at [facility]. Follow-up echocardiogram March 2024 revealed normal valve function.. Ejection fraction 40%. Currently asymptomatic, discussed with the patient utilizing small dose of enalapril 2.5 mg twice daily and titrate as tolerated. The rationale for that was discussed with the patient. Down the road we may consider adding beta-ca. 2-moderate pulmonary hypertension, echocardiogram March 2024 measured RVSP at 49 mmHg, no edema is noted 3-permanent atrial fibrillation on chronic Coumadin therapy with no bleeding complications, heart rate is under control. 4-at risk for fall with major injuries recently. Education in that regard provided. 5-high risk medication with anticoagulation with no complications so far. 7-epxd-eftqfpix mitral regurgitation based on echocardiogram March 2024. 7-moderate LV systolic dysfunction, ejection fraction 40% by echocardiogram March 2024. Small dose of ANNE inhibitor was initiated. Titration of the medicine will be conducted in the future. Beta-ca therapy will be considered down the road. Review of Systems Neurological: Positive for light-headedness. All other systems reviewed and are negative. Vitals: 04/18/24 1408 BP: 110/60 BP Location: Left arm Patient Position: Sitting Pulse: 72 Weight: 73.7 kg (162 lb 6.4 oz) Height: 1.753 m (5' 9 ) Objective Physical Exam Constitutional: Appearance: Normal appearance. HENT: Nose: Nose normal. Neck: Vascular: No carotid bruit. Cardiovascular: Rate and Rhythm: Normal rate. Pulses: Normal pulses. Heart sounds: Normal heart sounds. Pulmonary: Effort: Pulmonary effort is normal. Abdominal: General: Bowel sounds are normal. Palpations: Abdomen is soft. Musculoskeletal: General: Normal range of motion. Cervical back: Normal range of motion. Right lower leg: No edema. Left lower leg: No edema. Skin: General: Skin is warm and dry. Neurological: General: No focal deficit present. Mental Status: He is alert. Psychiatric: Mood and Affect: Mood normal. Behavior: Behavior normal. Thought Content: Thought content normal. Judgment: Judgment normal. Allergies Penicillins, Neomycin, Bacitracin, and Polymyxin b Current Medications Current Outpatient Medications: aspirin 81 mg EC tablet, Take 1 tablet (81 mg) by mouth once daily., Disp: , Rfl: atorvastatin (Lipitor) 40 mg tablet, Take 1 tablet (40 mg) by mouth once daily., Disp: 90 tablet, Rfl: 3 pantoprazole (ProtoNix) 40 mg EC tablet, Take 1 tablet (40 mg) by mouth., Disp: , Rfl: traMADol (Ultram) 50 mg tablet, Take 1-2 tablets (50-100 mg) by mouth every 6 hours if needed., Disp: , Rfl: warfarin (Coumadin) 5 mg tablet, Take 2 tablets (10 mg) by mouth. Take as directed by [facility], Disp: , Rfl: enalapril (Vasotec) 2.5 mg tablet, Take 1 tablet (2.5 mg) by mouth 2 times a day., Disp: 180 tablet, Rfl: 3 Assessment/Plan 1. Nonrheumatic aortic valve stenosis Follow Up In Cardiology 2. Status post transcatheter aortic valve replacement 3. Coronary artery disease, unspecified vessel or lesion type, unspecified whether angina present, unspecified whether [place] or transplanted heart 4. Pulmonary hypertension (Multi) 5. Congestive heart failure, NYHA class 2, unspecified congestive heart failure type enalapril (Vasotec) 2.5 mg tablet Follow Up In Cardiology Basic Metabolic Panel Follow Up In Cardiology Basic Metabolic Panel 6. Permanent atrial fibrillation (Multi) 7. PVD (peripheral vascular disease) ([facility]) 8. Former smoker 9. BMI 23.0-23.9, adult Scribe Attestation By signing my name below, Felipa Coleman LPN, Scribe attest that this documentation has been prepared under the direction and in the presence of Bonita Kingsley MD. Provider Attestation - Scribe documentation All medical record entries made by the Scribe were at my direction and personally dictated by me. I have reviewed the chart and agree that the record accurately reflects my personal performance of the history, physical exam, discussion and plan. documented in this encounter [facility] Work Phone: 04-18-2024 Instructions Felipa Sena LPN - 04/18/2024 2:00 PM EST Please bring all medicines, vitamins, and herbal supplements with you when you come to the office. Prescriptions will not be filled unless you are compliant with your follow up appointments or have a follow up appointment scheduled as per instruction of your physician. Refills should be requested at the time of your visit. Fall Prevention Education Given Vasotec 2.5 mg one tablet 2 times daily Lab work 2-3 weeks Follow up b/p one month 6 months documented in this encounter [facility] Work Phone: 04-08-2024 Telephone encounter Note Wound pain [facility] 04-08-2024 Miscellaneous Notes Wound pain documented in this encounter [facility] 04-06-2024 History of Presen t illness Narrative Images from the original note were not included. Subjective Patient ID: Fani Chua (: [id number]) is a 88 y.o. male who presents for Wound Check and Referral. Wound Check Patient presents today for F2F for a referral for . He states he recently has a lining machine tender accident this past Thursday that caused a wound to his left lower leg. He does have this wrapped at the time of visit which he did wrap over the weekend. He did want to remove the dressing himself today but could not bring himself to do so due to the pain and bleeding. He is currently on Coumadin. He states he did have a recent tetanus immunization. He states he has had HH in the past through [facility] and would like the referral to be made to them again. Today he is in a great amount of discomfort. He has not seeked any medical care since this injury happened. He denies fevers or chills. He denies lightheadedness or dizziness. He denies any numbness or tingling to the leg or foot. Current Outpatient Medications Medication Instructions aspirin 81 mg, Daily atorvastatin (LIPITOR) 40 mg, Oral, Daily doxycycline (VIBRAMYCIN) 100 mg, Oral, 2 times daily, Take with at least 8 ounces (large glass) of water, do not lie down for 30 minutes after Multiple Vitamins-Minerals (PRESERVISION AREDS 2 PO) Take by mouth pantoprazole (PROTONIX) 40 mg, Oral, Daily before breakfast traMADol (ULTRAM) 50 mg, Oral, Every 8 hours PRN warfarin (COUMADIN) 10 mg, Oral, Nightly Allergies Allergen Reactions Amoxicillin Swelling Welts, facial swelling Welts, facial swelling Welts, facial swelling Neomycin Bacitracin Penicillins Other, Rash, Swelling and Angioedema Polymyxin B Wound Dressing Adhesive Rash Other Reaction(s): Rash Patient Active Problem List Diagnosis Vertigo of central origin Balance disorder Cervical spondylosis without myelopathy CHF (congestive heart failure), NYHA class II ([facility]) Chronic atrial fibrillation (HCC) ([facility]) Degeneration of lumbar intervertebral disc Emphysema of lung ([facility]/HCC) Gastroesophageal reflux disease without esophagitis PVD (peripheral vascular disease) ([facility]) Tobacco abuse Venous insufficiency (chronic) (peripheral) Malignant neoplasm of prostate ([facility]/HCC) Lumbosacral spondylosis without myelopathy Laryngopharyngeal reflux Diverticulosis, sigmoid Carcinoma in situ of bladder CAD (coronary artery disease) ([facility]) Anemia S/P aortic valve replacement History of gout Mixed hyperlipidemia ([facility]/HCC) Prediabetes Pulmonary hypertension ([facility]) Chronic venous hypertension (idiopathic) with inflammation of left lower extremity History of kidney stones Review of Systems Constitutional: Negative for chills, fatigue and fever. Skin: Positive for wound. Neurological: Negative for dizziness, light-headedness and headaches. Objective Vital signs: BP 130/64 Pulse 61 Temp 97.3 F SpO2 91% Physical Exam Constitutional: Comments: Appears uncomfortable during dressing change Musculoskeletal: Left lower leg: Edema (2+) present. Skin: General: Skin is warm and dry. Capillary Refill: Capillary refill takes more than 3 seconds. Comments: L lower leg wound. See attached photo Neurological: Mental Status: He is alert and oriented to person, place, and time. Psychiatric: Mood and Affect: Mood normal. Assessment/Plan Problem List Items Addressed This Visit None Visit Diagnoses Skin tear of left elbow without complication, initial encounter - Primary Relevant Medications doxycycline (Vibramycin) 100 MG capsule traMADol (Ultram) 50 MG tablet Left leg cellulitis Relevant Medications doxycycline (Vibramycin) 100 MG capsule traMADol (Ultram) 50 MG tablet Left leg swelling Blood blister Patient presents today to discuss referral for HH due to needing wound assistance after a injury while using his lining machine tender. He states he did this on Thursday and he was able to wrap the leg himself. This did bleed for quite sometime due to his Coumadin. Today the dressing was full of dried blood. This did take multiple normal saline rinses today loosen the dressing. Patient was in a great amount of pain during the dressing change. The wound was severe upon first assessment. I did confirm a pulse in the foot. He does have some edema which is related to the injury. He has great sensation in that leg. His last tetanus was in December 2023. I will start him on DOXY as directed. He does monitor his INR monthly which I advised he inform them of the antibiotic use. I did call both [facility] wound and Nery tejeda. Nery is able to see him this week on Thursday at 11:30. I did confirm this was ok with the patient and he agreed. I did give him the directions for the appt. I will send referral to [facility] HH for home wound care. I advised that he needs to be seen by wound first for specific wound instructions for the HH nurse to follow which he is agreeable to. He denies fevers or chills today. I did clean the wound well and covered it with Xeroform that was then wrapped with a kerlex which was then covered with 4x4 guaze pads. The area was wrapped again with Kerlex and secured with a ANNE bandage. I advised patient does keep this on until he is seen by wound on Thursday. He may add extra dressing as needed if the area starts to bleed through. He denies need for anything for pain. I discussed with him seeking ER care if he starts with any fevers or chills prior to his appt with wound. All questions and concerns were answered. Due to the extent of the wound, patients medications including Coumadin and being high risk bleed and with his other co morbidities. He will require HH care. Health Maintenance Topic Date Due Diabetes: Retinopathy Screening Never done Diabetes: Hemoglobin A1C 02/02/2024 Influenza Vaccine (1) 02/14/2024 Diabetes: Urine Protein Screening 11/01/2024 Pneumococcal Vaccine: 65+ Years Completed Immunization History Administered Date(s) Administered Influenza, High Dose Seasonal, Preservative Free 05/14/2022 Influenza, High-dose Seasonal, Quadrivalent, Preservative Free 03/28/2021 Influenza, Seasonal, Quadrivalent, Adjuvanted 05/14/2023 Influenza, seasonal, intradermal, preservative free 04/08/2013, 05/18/2015 Pfizer Purple Cap SARS-CoV-2 Vaccination 07/05/2020, 07/26/2020, 03/28/2021 Pneumococcal Conjugate PCV 13 05/18/2017 Pneumococcal Polysaccharide PPSV23 10/02/2010 Td (adult), 5 Lf tetanus toxoid, preservative free, adsorbed 11/01/2012 -Patient's chronic conditions have been reviewed in preparation for this appointment. Protocols reviewed and updated. A collaborative plan of care has been created for pt regarding specific health concerns. Any barriers to care have been identified and addressed. Any part of this document that has been added/copied from other documents has been reviewed for accuracy and updated as appropriate at the time of the patient encounter. -Follow up for Nery wound care Thursday05/09/2024. Maria Fernanda Laws NP Visit time exceeded 1 hour. documented in this encounter [facility] 03-22-2024 History of Presen t illness Narrative Lesions: Location: right ear Duration: long time Quality: denies pain, denies itch Modifying factors: aggravated by picking Associated symptoms: non-healing Treatments: none Lesion # 2: Location: forehead Duration: off and on for 1 year Quality: itchy Modifying factors: aggravated by picking Associated symptoms: non-healing Treatments: none Established patient All pertinent medical history, medications, and allergies were reviewed. General Exam: alert, oriented to person, place, and time, normal affect, well appearing Unaccompanied A focused exam completed based on patient reported problems, see below: 1. Seborrheic keratosis (2) Right Ear, Scalp Stuck on verrucous, torres-brown papules and plaques. Patient was counseled regarding these benign growths. Removal is normally not necessary, but they may be removed if they are symptomatic or for cosmetic reasons. Instructed patient he could use hydrocortisone cream OTC for itchiness. Follow up as needed for new/changing lesions. Next Visit: prn for any new/changing lesions documented in this encounter [facility] 03-07-2024 History of Presen t illness Narrative Images from the original note were not included. Subjective Patient ID: Fani Chua (: 1935) is a 88 y.o. male who presents for Shoulder Pain. History of Present Illness The patient presents for evaluation of shoulder pain. He experienced a sudden, severe pain in his shoulder while turning the steering wheel of his car. The pain, described as shooting and unbearable, has been preventing him from lying down comfortably. Despite taking Percocet every 6 hours, he reports that the pain disrupts his sleep. Yesterday, the pain started radiating down into his hand, limiting his range of motion. He experiences pressure and pain in his shoulder when lying down and also reports some neck discomfort, although he believes it is unrelated to his shoulder issue. He can lift his arm without pain but struggles to hold it up. He has previously consulted with an paralegal specialist for hip issues and another one in [place] for a hip replacement in October 2023. In December 2023, he fractured his kneecap and was treated by Dr. Rubio. Current Outpatient Medications Medication Instructions aspirin 81 mg, Oral, Daily atorvastatin (LIPITOR) 40 mg, Oral, Daily Multiple Vitamins-Minerals (PRESERVISION AREDS 2 PO) Oral oxyCODONE-acetaminophen (Percocet) 5-325 MG tablet 1 tablet, Oral, Every 6 hours PRN pantoprazole (PROTONIX) 40 mg, Oral, Daily before breakfast traMADol (ULTRAM) 50 mg, Oral, Every 6 hours PRN warfarin (COUMADIN) 10 mg, Oral, Nightly Allergies Allergen Reactions Amoxicillin Swelling Welts, facial swelling Welts, facial swelling Welts, facial swelling Neomycin Bacitracin Penicillins Other, Rash, Swelling and Angioedema Polymyxin B Wound Dressing Adhesive Rash Other Reaction(s): Rash Patient Active Problem List Diagnosis Vertigo of central origin Balance disorder Cervical spondylosis without myelopathy CHF (congestive heart failure), NYHA class II ([facility]) Chronic atrial fibrillation (HCC) ([facility]) Degeneration of lumbar intervertebral disc Emphysema of lung ([facility]) Gastroesophageal reflux disease without esophagitis PVD (peripheral vascular disease) ([facility]) Tobacco abuse Venous insufficiency (chronic) (peripheral) Malignant neoplasm of prostate ([facility]) Lumbosacral spondylosis without myelopathy Laryngopharyngeal reflux Diverticulosis, sigmoid Carcinoma in situ of bladder CAD (coronary artery disease) ([facility]) Anemia S/P aortic valve replacement History of gout Mixed hyperlipidemia ([facility]) Prediabetes Pulmonary hypertension ([facility]) Chronic venous hypertension (idiopathic) with inflammation of left lower extremity History of kidney stones Review of Systems Constitutional: Negative for chills, fatigue and fever. Musculoskeletal: R shoulder pain, no ROM Objective Vital signs: BP 138/78 Pulse 83 SpO2 96% Physical Exam Constitutional: Comments: Appears uncomfortable due to pain Musculoskeletal: Comments: Patient unable to hold up shoulder unless assisted by his L hand, tenderness to the R scapular areas with small spasms. R hand with edema, decrease strength Skin: General: Skin is warm and dry. Neurological: Mental Status: He is alert and oriented to person, place, and time. Psychiatric: Mood and Affect: Mood normal. Assessment/Plan Assessment & Plan 1. Suspected full rotator cuff tear. The patient reports severe shoulder pain with shooting pains, limited range of motion, and inability to lay down due to discomfort. The pain has extended to the hand and bicep. There is concern for a full rotator cuff tear given the symptoms and lack of range of motion. An immediate referral to orthopedics is recommended for further evaluation and management. Advised patient he has an appt with Dr. Garcia at [facility] 03/08/2024 at 11:15. Problem List Items Addressed This Visit None Visit Diagnoses Nontraumatic tear of right rotator cuff, unspecified tear extent - Primary Relevant Medications oxyCODONE-acetaminophen (Percocet) 5-325 MG tablet Health Maintenance Topic Date Due Diabetes: Retinopathy Screening Never done Diabetes: Hemoglobin A1C 02/02/2024 Influenza Vaccine (1) 02/14/2024 Diabetes: Urine Protein Screening 11/01/2024 Pneumococcal Vaccine: 65+ Years Completed Immunization History Administered Date(s) Administered Influenza, High Dose Seasonal, Preservative Free 05/14/2022 Influenza, High-dose Seasonal, Quadrivalent, Preservative Free 03/28/2021 Influenza, Seasonal, Quadrivalent, Adjuvanted 05/14/2023 Influenza, seasonal, intradermal, preservative free 04/08/2013, 05/18/2015 Pfizer Purple Cap SARS-CoV-2 Vaccination 07/05/2020, 07/26/2020, 03/28/2021 Pneumococcal Conjugate PCV 13 05/18/2017 Pneumococcal Polysaccharide PPSV23 10/02/2010 Td (adult), 5 Lf tetanus toxoid, preservative free, adsorbed 11/01/2012 -Patient's chronic conditions have been reviewed in preparation for this appointment. Protocols reviewed and updated. A collaborative plan of care has been created for pt regarding specific health concerns. Any barriers to care have been identified and addressed. Any part of this document that has been added/copied from other documents has been reviewed for accuracy and updated as appropriate at the time of the patient encounter. -Follow up for Next scheduled follow-up or sooner as needed. Maria Fernanda Laws NP documented in this encounter [facility] 02-26-2024 History and physi mary note Note Date/Time February 26, 2024 4:16pm [facility] [address] [place] [address] Hospitalist H&P Signed Patient: Fani Chua MR#: [id number] : 1935 Acct:[id number] Age/Sex: 88 / M Adm Date: 4 Loc: 3T Room: [address] [place] [address] Type: ADM IN Attending Dr: Bright Lopez MD Copies to: MD María Abrams MD~ [facility] DATE OF EXAMINATION: 02/26/24 CHIEF COMPLAINT: Dizziness HISTORY OF PRESENT ILLNESS: Mr. Chua is an 88yo M with PMH of atrial fibrillation on Coumadin, aortic stenosis status-post TAVR, CVA, prostate and bladder cancer, spinal stenosis, recent patella fracture in December 2023, who presents to the emergency department with an episode of dizziness and unsteadiness on his feet. He reports feeling in his normal state of health yesterday, and was exerting himself without any major issue. He occasionally uses a cane as an assistive device, and woke up today with diffuse tremors and shaking throughout his body bilaterally in the upper and lower extremities. He was aware during this episode of everything going on with himself. He then started to ambulate and had difficulty with dizziness/lightheadedness, but does not describe this as the room spinning around him. Due to his disequilibrium, he decided to come into the emergency department for further evaluation. He does not report any recent changes to hishome regimen of medications. In the emergency department, lab work noteworthy for chemistry within normal limits, mild hypomagnesemia at 1.5 and normal CBC. Patient did have mildly elevated BNP of 306 and troponin slightly elevated at 30. INR was subtherapeutic at 1.7. There was some concern for hypoxia as patient was in the 89 to 90% SpO2 on room air. Case was discussed between myself and ED attending andpatient was admitted to hospitalist service for further management. Review of Systems Review of Systems Review of systems: 10 point ROS reviewed and is negative except for that which is noted above in HPI [facility] Medical History (Updated 02/26/24 @ 16:41 by Bright Lopez MD) Patella fracture right.12/20/23 Hyperlipidemia Emphysema lung Arthritis Macular degeneration Spinal stenosis Ulcer of right lower leg history of History of bladder cancer History of prostate cancer Warfarin anticoagulation Gout Prostate cancer Bladder cancer Atrial fibrillation Surgical History (Updated 02/26/24 @ 14:12 by Claudia Arellano RN) History of joint replacement bilateral hips History of phacoemulsification of cataract of both eyes with intraocular lens implantation History of cystoscopy History of cardiac catheterization History of heart surgery aortic valve replaced S/P left rotator cuff repair History of prostatectomy History of bladder surgery Family History (Updated 02/26/24 @ 14:12 by Claudia Arellano RN) Father CAD (coronary artery disease) Heart disease Mother CAD (coronary artery disease) Heart disease Brother Bipolar 1 disorder COPD (chronic obstructive pulmonary disease) Grandparent Cancer Grandparent Diabetes Daughter Bipolar 1 disorder Brother Legacy FamHx Relation: Brother(s) COPD (chronic obstructive pulmonary disease) Legacy FamHx Relation: Brother(s) Sibling Cancer Legacy FamHx Problem: Diagnosed with Cancer Other Afib Social History Smoking Status: Former smoker Tobacco Type: cigarettes Substance Use Type: None Substance Abuse Comment: beer with dinner Meds Medications and Allergies Allergies amoxicillin Allergy (Severe, Verified 02/26/24 14:05) Swelling of Lip/Tongue/Throat adhesive Allergy (Unknown, Verified 02/26/24 14:05) Rash bacitracin [From Neosporin ([id number])] Allergy (Unknown, Verified 02/26/24 14:05) itch and rash, rash neomycin [From Neosporin ([id number])] Allergy (Unknown, Verified 02/26/24 14:05) itch and rash, rash Penicillins Allergy (Unknown, Verified 02/26/24 14:05) Anaphylaxis polymyxin B [From Neosporin ([id number]-[id number])] Allergy (Unknown, Verified 02/25/2414:05) Rash and itch, rash Home Medications pantoprazole 40 mg tablet,delayed release 40 mg PO QHS 01/19/19 [History Confirmed 02/26/24] aspirin 81 mg tablet,delayed release (Adult Aspirin Regimen) 81 mg PO DAILY 12/20/23 [History Confirmed 02/26/24] atorvastatin 80 mg tablet 40 mg PO DAILY 12/20/23 [History Confirmed 02/26/24] acetaminophen 500 mg tablet 1,000 mg (2 x 500 mg) PO Q6H PRN Fever Or Pain #0 tabs 12/23/23 [Rx Confirmed 02/26/24] warfarin 5 mg tablet 7.5 mg (1.5 x 5 mg) PO DAILY 30 days #45 tabs 12/23/23 [Rx Confirmed 02/26/24] mvfmwyrp-irkfggbr-cwnxy acid 500 mcg-lutein 5 mg-zeaxanth 1 mg tablet (Macular Vitamin) 1 tab PO DAILY 02/26/24 [History Confirmed 02/26/24] tramadol 25 mg tablet 25 mg PO Q6HR PRN pain 02/26/24 [History Confirmed 02/26/24] Exam Physical Exam Vital Signs: Temp Pulse Resp BP Pulse Ox O2 Del Method 98.2 F 65 16 164/83 H 93 L Room Air 02/26/24 15:00 02/26/24 15:00 02/26/24 15:00 02/26/24 15:00 02/26/24 15:00 02/26/24 15:00 Narrative: Constitutional: Elderly WM, resting in bed comfortably HEENT: Moist mucous membranes, neck supple Cardiovascular: RRR, no M/R/G, normal S1 and S2, no JVD Respiratory: Lungs clear to auscultation bilaterally, no wheezes, rales or rhonchi GI: Soft, NTND, normoactive bowel sounds : Deferred Neuro: AAO x3, no focal deficits. CN III-XII grossly intact Extremities: No clubbing, cyanosis or edema. Patient with scar present over theright knee from previous fall, appears to be well-healing at this time. Strength in the bilateral lower extremities slightly weakened compared to the upper extremities, more like 4+/5. Bilateral upper extremities with strength 5/5 Psych: Patient calm, cooperative and conversant Results - Hospitalist H&P Lab Results Labs: Laboratory Last Values Corrected WBC 4.7 X10E3/uL (4.1-10.5) 02/26/24 10:06 Uncorrected WBC Count 4.7 x10E3/uL (4.1-10.5) 02/26/24 10:06 RBC 3.74 X10E6/uL (3.90-5.60) L 02/26/24 10:06 Hgb 11.5 g/dL (13.0-17.0) L 02/26/24 10:06 Hct 34.0 % (38.8-50.0) L 02/26/24 10:06 MCV 90.8 fl (83.5-101) 02/26/24 10:06 MCH 30.8 pg (27.5-35.2) 02/26/24 10:06 MCHC 33.9 g/dL (32.5-35.6) 02/26/24 10:06 RDW 16.2 % (12.0-14.8) H 02/26/24 10:06 Plt Count 138 x10E3/uL (150-450) L 02/26/24 10:06 MPV 8.3 fl (6.6-10.1) 02/26/24 10:06 Neut % (Auto) 71.9 % (.) 02/26/24 10:06 Lymph % (Auto) 11.1 % (.) 02/26/24 10:06 [place] % (Auto) 15.6 % (.) 02/26/24 10:06 Eos % (Auto) 0.8 % (.) 02/26/24 10:06 Baso % (Auto) 0.6 % (.) 02/26/24 10:06 Nucleat RBC Rel Count 0.1 /100 WBC (0-0.5) 02/26/24 10:06 Neut # (Auto) 3.4 x10E3/uL (1.8-7.7) 02/26/24 10:06 Lymph # (Auto) 0.5 x10E3/uL (1.00-4.8) L 02/26/24 10:06 [place] # (Auto) 0.7 x10E3/uL (0.0-0.8) 02/26/24 10:06 Eos # (Auto) 0.0 x10E3/uL (0.0-0.45) 02/26/24 10:06 Baso # (Auto) 0.0 x10E3/uL (0.0-0.2) 02/26/24 10:06 Monocyte Dist Width 16.32 % (0.00-20.00) 02/26/24 10:06 PT 19.6 Seconds (9.0-12.9) H 02/26/24 10:06 INR 1.7 02/26/24 10:06 PHA Creatinine Clear 65.05 02/26/24 10:06 Sodium 138 mmol/L (136-145) 02/26/24 10:06 Potassium 3.8 mmol/L (3.5-5.1) 02/26/24 10:06 Chloride 106 mmol/L (98-107) 02/26/24 10:06 Carbon Dioxide 25.3 mmol/L (21.0-31.0) 02/26/24 10:06 Anion Gap 10.5 mEq/L (6.0-15.0) 02/26/24 10:06 BUN 20 mg/dL (7-25) 02/26/24 10:06 Creatinine 0.80 mg/dL (0.70-1.30) 02/26/24 10:06 Est GFR (CKD-EPI) > 60.0 mL/Min 02/26/24 10:06 Glucose 105 mg/dL (70-100) H 02/26/24 10:06 Calcium 8.9 mg/dL (8.6-10.3) 02/26/24 10:06 Magnesium 1.5 mg/dL (1.9-2.7) L 02/26/24 10:06 Total Bilirubin 0.7 mg/dl (0.3-1.0) 02/26/24 10:06 AST 32 U/L (13-39) 02/26/24 10:06 ALT 20 U/L (7-52) 02/26/24 10:06 Alkaline Phosphatase 99 U/L (34-104) 02/26/24 10:06 Troponin I High Sens 30.9 pg/mL (0.0-20.0) H 02/26/24 10:06 B-Natriuretic Peptide 306.0 pg/mL (5-100) H 02/26/24 10:06 Total Protein 6.5 gm/dL (6.4-8.9) 02/26/24 10:06 Albumin 3.7 gm/dL (3.5-5.7) 02/26/24 10:06 Globulin 2.8 gm/dL 02/26/24 10:06 Albumin/Globulin Ratio 1.3 02/26/24 10:06 Urine Color Light-yellow (Yellow) 02/26/24 11:26 Urine Appearance Clear (Clear) 02/26/24 11:26 Urine pH 5.0 (5.0-9.0) 02/26/24 11:26 Ur Specific [place] 1.017 (1.001-1.030) 02/26/24 11:26 Urine Protein Negative mg/dL (Negative) 02/26/24 11:26 Urine Glucose (UA) Normal mg/dL (Normal) 02/26/24 11:26 Urine Ketones Negative (Negative) 02/26/24 11:26 Urine Occult Blood Negative (Negative) 02/26/24 11:26 Urine Nitrite Negative (Negative) 02/26/24 11:26 Urine Bilirubin Negative (Negative) 02/26/24 11:26 Urine Urobilinogen Normal mg/dL (Normal) 02/26/24 11:26 Ur Leukocyte Esterase Negative (Negative) 02/26/24 11:26 COVID-19 Clin Com Not detected (Not Detecte) 02/26/24 11:56 Microbiology Results Micro: Microbiology - Results from entire visit 02/26/24 11:56 Nasopharyngeal Respiratory Panel (PCR) - Final Assessment & Plan Assessment/Plan (1) Dysequilibrium: Plan Dysequilibrium/Falls Unclear etiology of symptoms at this time. Patient has no evidence of acute infectious process. EKG appears to be at baseline with stable atrial fibrillation. Symptoms do not appear to be significantly consistent with strokeor TIA. He is subtherapeutic with his INR however. Patient was attempting to have MRI of the brain for further evaluation of recent hospitalization. -Obtain orthostatics -Monitor on telemetry -Check echocardiogram -Monitor neuro checks every 4 hours -Check TSH, B12, vitamin D Permanent Atrial fibrillation on Coumadin Rate-controlled without need for medication. Patient states he cannot usually feel whether or not he has been in A-fib or not. He has been in A-fib for decades. -Continue pharmacy-dosed Coumadin Chronic medical conditions noted below, continue home regimen unless otherwise specified: Aortic stenosis status-post TAVR History of TIA History of prostate and Bladder Cancer recent patella fracture in December 2023 CODE STATUS: Full DVT prophylaxis: Coumadin IP vs OBS Justification Based on differential dx, clinical care plan, and risk of adverse events, if untreated, in my clinical judgement this patient requires an acute care setting as: OBSERVATION because of an expectation of an under 2 midnight stay. Estimated length of stay (# of days): 2 Documented By: Bright Lopez MD 4 1616 Signed By: <Electronically signed by Bright Lopez MD> 02/26/24 1641 [facility] Work Phone: 1(675) 980-573909-04-2024 History of Present illness Narrative* Dyan Marilee Caro, PTA - 02/17/2024 3:00 PM EDT Images from the original note were not included. Fani Chua is a 88 y.o. male presents with chief complaint of Post Hospital HPI: HPI Patient was admitted to [facility] 01/22-01/25/2024 with TIA. He has [facility] Nursing, PT, OT twice weekly. He was advised to schedule appointment with Dr Glover which he has not done at this time. Patient fell inside his home on 02/05/2024 due to tripping on his cane. Lt hip and thigh pain since fall. Pain is aggravated with walking and bending. He feels this is improving. Skin tear and lt upper arm and lt knee which are both covered with bandage, he denies pain. History of Present Illness The patient presents for evaluation of multiple medical concerns. He is seeking a neurologist's consultation for an MRI scan, which he has been unable to obtain due to his valve replacement. His last MRI was conducted 2 years ago. He recalls that Dr. Santos had mentioned the possibility of arranging an MRI during his hospital discharge. He has not yet scheduled an appointment with the nurse practitioner but plans to do so. He experienced a stroke in May 2023 and had a follow-up appointment in [place]. He has been receiving home health care, including physical therapy and nursing services, for the past 6 to 8 weeks. This period has been challenging for him as he has been unable to drive or leave his home. He reports that his left arm numbness, tingling, and lightheadedness have resolved since his third hospital admission. He also mentions a fall on a concrete driveway in his neighbor's yard at night, which required his son's assistance to get him back to the hospital. He has been undergoing physical therapy for balance issues and has a history of pain management spanning 20 years. I have reviewed and reconciled the history and medication list with the patient today. Flowsheet Row Patient Outreach from 01/26/2024 [facility] with E[facility] Blum [facility] Information ED, Hospital or [facility] Facility Discharge? Hospital [DX: TIA] Patient has been contacted within two business days of discharge Yes [unable to reach patient x 2, no return call] Discharge [facility] Discharge Date 01/23/24 Engagement Medications Appointments Self Management Patient Teaching Wrap Up HISTORIES: PAST MEDICAL HISTORY: Past Medical History: Diagnosis Date A-fib ([facility]) AVN (avascular necrosis of bone) ([facility]) Bladder infection COVID-19 vaccine administered pfizer Diverticulitis Diverticulosis 2011 Diverticulosis of colon without hemorrhage Eczema Kidney stone Labyrinthitis 11/2008 Menstrual bleeding problem Neuroma right foot Prostate cancer ([facility]) 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 Toe pain 1996 right hallux Type 2 diabetes mellitus ([facility]) Ureteral calculus, left Visual impairment SURGICAL HISTORY: Past Surgical History: Procedure Laterality Date CARDIOVERSION 2007 COLONOSCOPY 2011 COLONOSCOPY 05/27/2018 CYSTOSCOPY 01/2009 CYSTOSCOPY cystoscopy ureteroscopy,left ureteral calculus stricture CYSTOSCOPY 05/05/2023 NEUROMA SURGERY Right TN TOTAL HIP ARTHROPLASTY Left 03/29/2009 PROSTATECTOMY 1997 PYELOGRAM RETROGRADE UNI OR BI Right 05/05/2023 hydronephrosis ROTATOR CUFF REPAIR Left 04/2015 SKIN CANCER EXCISION Mid frontal scalp, SCC, Mohs Surgery 02/04/23 TOE SURGERY Right 1995 R hallux fused TOTAL HIP ARTHROPLASTY Right 12/18/2020 TUMOR EXCISION 1996 bladder cancer SOCIAL HISTORY: Social History Tobacco Use Smoking status: Former Current packs/day: 0.00 Types: Cigarettes Quit date: 06/15/2001 Years since quittin.6 Smokeless tobacco: Never Tobacco comments: Ex-heavy cigarettes smoker (20-30/day) Vaping Use Vaping status: Never Used Substance Use Topics Alcohol use: Yes Alcohol/week: 14.0 standard drinks of alcohol Types: 14 Cans of beer per week Comment: .caffeine intake:Coffee, 3-4 cups per day. Drug use: Never Depression: Not at risk (05/14/2023) PHQ-2 PHQ-2 Score: 0 FAMILY HISTORY: Family History Problem Relation Name Age of Onset Coronary artery disease Father Diabetes Maternal Grandmother Cancer Paternal Grandmother Melanoma Neg Hx MEDICATIONS: Current Outpatient Medications Medication Instructions aspirin 81 mg, Oral, Daily atorvastatin (LIPITOR) 40 mg, Oral, Daily Multiple Vitamins-Minerals (PRESERVISION AREDS 2 PO) Oral pantoprazole (PROTONIX) 40 mg, Oral, Daily before breakfast traMADol (ULTRAM) 50 mg, Oral, Every 6 hours PRN warfarin (COUMADIN) 10 mg, Oral, Nightly ALLERGIES: Allergies Allergen Reactions Amoxicillin Swelling Welts, facial swelling Welts, facial swelling Welts, facial swelling Neomycin Bacitracin Penicillins Other, Rash, Swelling and Angioedema Polymyxin B PHYSICAL EXAM: Visit Vitals Smoking Status Former BP Readings from Last 3 Encounters: 01/04/24 124/70 11/12/23 122/78 09/24/23 140/76 Wt Readings from Last 3 Encounters: 01/04/24 165 lb 11/12/23 163 lb 09/24/23 167 lb Physical Exam HENT: Mouth/Throat: Mouth: Mucous membranes are moist. Neck: Vascular: No carotid bruit. Cardiovascular: Rate and Rhythm: Normal rate and regular rhythm. Heart sounds: No murmur heard. No friction rub. No gallop. Pulmonary: Effort: Pulmonary effort is normal. Breath sounds: Normal breath sounds. Neurological: Mental Status: He is alert and oriented to person, place, and time. Psychiatric: Mood and Affect: Mood normal. Thought Content: Thought content normal. Results ASSESSMENT AND PLAN: Assessment & Plan 1. TIA (transient ischemic attack) Reviewed hospital records and diagnostic imaging including CXR, CTA head/neck. The left arm numbness and tingling, lightheadedness resolved overnight. Pt feels well and has had no reoccurrence of symptoms. He does plan to follow up with Neurology. 2. Generalized muscle weakness He is getting PT/OT. He is using a cane and has a walker at home if needed. 3. Chronic systolic congestive heart failure, NYHA class 2 (CMS/HCC) Denies problems with SOB, MONIQUE, or increased edema with weight gain. Continue current medication regimen. Eat a heart healthy diet low in sodium. Monitor weights regularly and call if increased more than 5 pounds. Call immediately if any problems or concerns. documented in this encounterSaint [facility] [id number] Consult note Author Buck Glover [facility] January 22, 2024 1:50pm Note Date/Time January 22, 2024 10: 52am [facility] [address] [place] [address] Neurology Consult Note Signed Patient: Fani Chua MR#: [id number] : 1935 Acct:[id number] Age/Sex: 88 / M Adm Date: 4 Loc: 3T Room: [address] [place] [address] Type: ADM INOo Attending Dr: iMnna Patricia MD Copies to: DO Minna Doe MD Robert L Hill, MD~ HPI Consult Date: 01/22/24 Contact Lens Assistant: Buck Glover DO [facility] Medical History Right patella fracture History of transcatheter aortic valve replacement (TAVR) History of bladder cancer History of prostate cancer Diabetes mellitus type 2, diet-controlled Pt doesn't take any meds Atrial fibrillation Patella fracture right.12/20/23 Hyperlipidemia Emphysema lung Arthritis Macular degeneration Spinal stenosis Ulcer of right lower leg history of Warfarin anticoagulation Gout Prostate cancer Bladder cancer Afib Surgical History History of joint replacement bilateral hips History of phacoemulsification of cataract of both eyes with intraocular lens implantation History of cystoscopy History of cardiac catheterization History of heart surgery aortic valve replaced S/P left rotator cuff repair History of prostatectomy History of bladder surgery History of hip surgery left hip replaced Family History Father CAD (coronary artery disease) Mother CAD (coronary artery disease) Brother Bipolar 1 disorder COPD (chronic obstructive pulmonary disease) Grandparent Cancer Grandparent Diabetes Daughter Bipolar 1 disorder Brother Legacy FamHx Relation: Brother(s) COPD (chronic obstructive pulmonary disease) Legacy FamHx Relation: Brother(s) Father 37 yrs Heart disease Mother Heart disease 67 yrs Sibling Cancer Legacy [facility] Problem: Diagnosed with Cancer Other Afib Social History Smoking Status: Former smoker Tobacco Type: cigarettes Substance Use Type: None Substance Abuse Comment: beer with dinner Meds Medications and Allergies Allergies amoxicillin Allergy (Severe, Verified 01/21/24 15:33) Swelling of Lip/Tongue/Throat adhesive Allergy (Unknown, Verified 01/21/24 15:33) Rash bacitracin [From Neosporin ([id number])] Allergy (Unknown, Verified 01/21/24 15:33) itch and rash, rash neomycin [From Neosporin ([id number]-piw-urudq)] Allergy (Unknown, Verified 01/21/24 15:33) itch and rash, rash Penicillins Allergy (Unknown, Verified 01/21/24 15:33) Anaphylaxis polymyxin B [From Neosporin (mhn-gtz-kyrek)] Allergy (Unknown, Verified 01/20/2415:33) Rash and itch, rash Home Medications pantoprazole 40 mg tablet,delayed release 40 mg PO QHS 01/19/19 [History Confirmed 01/21/24] aspirin 81 mg tablet,delayed release (Adult Aspirin Regimen) 81 mg PO DAILY 12/20/23 [History Confirmed 01/21/24] atorvastatin 80 mg tablet 40 mg PO DAILY 12/20/23 [History Confirmed 01/21/24] acetaminophen 500 mg tablet 1,000 mg (2 x 500 mg) PO Q6H PRN Fever Or Pain #0 tabs 12/23/23 [Rx Confirmed 01/21/24] warfarin 5 mg tablet 7.5 mg (1.5 x 5 mg) PO DAILY 30 days #45 tabs 12/23/23 [Rx Confirmed 01/21/24] Exam Physical Exam Vital Signs: Temp Pulse Resp BP Pulse Ox O2 Del Method 97.7 F 60 16 135/86 96 Room Air 01/22/24 07:38 01/22/24 07:38 01/22/24 07:38 01/22/24 07:38 01/22/24 07:38 01/22/24 07:38 Results - Neuro Laboratory Findings 01/22/24 06:54 01/22/24 06:54 Diagnostic Findings Imaging/Impressions: ITS Impressions Chest X-Ray 01/21/24 15:19 IMPRESSION: CARDIOMEGALY WITHOUT ACUTE PROCESS. Impression dictated by: Henry Ramirez Jr., D.O.01/21/2024 3:58 PM Dictation Location: [place] [address] 01/21/24 15:19 IMPRESSION: No acute intracranial pathology. No evidence of critical stenosis, aneurysmal dilatation, dissection or occlusion. Impression dictated by: Henry Ramirez Jr., D.O.01/21/2024 3:47 PM Dictation Location[facility] Therapy Recommendations Therapy Recommendations: ST Recommendations Liquid Consistency Thin Liquids Recommendation Solid Consistency Regular Solids Recommendations Meat Consistency Whole Meats Recommendations Medication Administration Whole Pills,Give Pills with Water,Give Pills One at a Time Dysphagia Swallow Precautions/ Sitting Upright (90 deg),Small Bites/Sips, Strategies Alternate Liquids/Solids,Pacing/Slow-Rate,Sit Upright 30 Minutes Assessment/Plan (1) Transient ischemic attack (TIA): Plan CONSULT REASON: Rule out CVA HPI: 88-year-old right-handed man with history of atrial fibrillation on warfarin andaortic stenosis status post TAVR. Yesterday he had sudden onset of a strange sensation develop in the entirety of his left arm distal to his elbow. Motor function still seem to be okay. Initially it sounds like he might of had some nausea and presyncope. When symptoms did not resolve, he came into the emergency department for evaluation around 3 PM. There was initial concern thatthe arm symptoms could be cardiac, given the associated symptoms. Troponins were not elevated. His symptoms did eventually resolve completely and have not come back. The left upper extremity feels completely normal. No other new symptoms to report. No overnight events. I saw him back in May 2023 for what I suspected was a small acute ischemic stroke somewhere in the posterior circulation which caused him sudden onset of vertigo and a mild disconjugate gaze with slight diplopia that thankfully resolved. Since May 2023 someone placed him on aspirin along with the warfarin. EXAMINATION: In no distress. Some resolving ecchymoses to the left side of the face. Limbs seem well-perfused. No significant edema. Normal work of breathing. Visualized skin is generally intact and without lesions. Affect normal. Patient is alert and generally oriented. Attention normal. Speech is fluent and nondysarthric. Pupils are equal and reactive. Ocular motility is full. Nonystagmus. Facial sensation is normal. Hearing is normal. Facial strength is normal. Tongue is midline. Muscle bulk, tone, and strength are normal. No tremors. No pathologic reflexes. Light touch is normal. Vibratory sensation is normal. No limb dysmetria or ataxia. DATA REVIEW: -CT head nonacute -CTA head and neck without any evidence of critical stenosis, aneurysmal dilatation, dissection, or occlusion -Total cholesterol 122, LDL 41, HDL 71 -Troponins flat, normal -A1c 5.6 June 05, 2023 ASSESSMENT: 88-year-old man with history of atrial fibrillation on warfarin and aortic stenosis status post TAVR. On November 21, 2023 he developed sudden onset paresthesias in the entire portion of the left upper extremity that is distal to the elbow. The symptoms were not in any peripheral nerve or dermatomal distribution. Consider central cause. I will presume this represented a transient ischemic attack. His risk factors areadequately addressed. He is already at elevated risk for bleeding complicationsgiven the warfarin and the aspirin. I would not add to that. PLAN: 1. Continue the warfarin 2. Continue the aspirin 81 mg daily 3. We can go without the MRI. His Medtronic transcatheter aortic valve replacement is MR conditional. He has had an MRI in an outpatient center with it. 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 He is asymptomatic and already effectively medically maximized. 4. Outpatient neurology follow-up; okay for discharge from my standpoint Documented By: Buck Glover DO 01/22/24 1048 Signed By: <Electronically signed by Buck Glover DO> 01/22/24 8504 [facility] Work Phone: [phone]) 288-486008-09-2024 Hospital Discharge instructionsAmbulatory Orders* Initiate Home Health Time Frame: 01/22/24, Location: Determined By Patient Additional Instructions Speech therapy recommendations: *Take pills whole, one at a time, with water *Sit upright at 90 degrees during any oral intake *Take small bits and sips *Alternate liquids and solids *Pace yourself and eat at a slow rate *Sit upright for 30 minutes after meals and snacks Home health to manage: -RN/PT to eval and treat -Monitor VS per protocol -Fall precautions -Perform neuro assessments -Continue to manage Coumadin as per chronic management -Assist with medication management and education -See speech therapy recs [facility] Work Phone: [phone]) 767-498208-08-2024 History and physical note Author Minna Patricia [facility] January 21, 2024 8:29pm Note Date/Time January 21, 2024 6:5 7pm [facility] [address] [place] [address] Hospitalist H&P Signed Patient: Fani Chua MR#: [id number] : 1935 Acct:[id number] Age/Sex: 88 / M Adm Date: 4 Loc: 3T Room: 3S3441-4 Type: ADM INOo Attending Dr: Donnell Amos MD Copies to: BENJI Suazo MD Obaydah M Daromar, MD Robert L Hill, MD~ HPI DATE OF EXAMINATION: 01/21/24 CHIEF COMPLAINT: Left arm numbness and tingling, lightheadedness HISTORY OF PRESENT ILLNESS: Mr. Fani Blue is an 88-year-old male with a past medical history of atrial fibrillation on warfarin, aortic stenosis status post TARV, CVA, prostate and bladder cancer, recent patella fracture on 12/20/2023 and spent some time on our rehab unit. He now presents today with left arm numbness and tingling, lightheadedness and some nausea. He reports that symptoms started around 1 PM this afternoon. He states that nausea and lightheadedness have resolved, however he still has numbness and tingling to his fingers. He has a history of TIA last May and was afraid that symptoms were going to be progressive. Hedenies any headache or dizziness, his speech is clear. No chest pain or palpitation. No cough, dyspnea, or pain with inspiration. No abdominal pain or indigestion, constipation or diarrhea, nausea or vomiting. No dysuria or retention. No fevers. Upon arrival to the ER, head CT did not show any acute intracranial pathology. Head/neck CTA did not show any evidence of critical stenosis, aneurysmal dilatation, dissection or occlusion. He will be admitted by the hospitalist team for further evaluation and management. Review of Systems Review of Systems Review of systems: 10 point review of systems obtained, negative unless noted in the HPI below PMFSH Source: Old Records Reviewed Medical History Right patella fracture History of transcatheter aortic valve replacement (TAVR) History of bladder cancer History of prostate cancer Diabetes mellitus type 2, diet-controlled Pt doesn't take any meds Atrial fibrillation Patella fracture right.12/20/23 Hyperlipidemia Emphysema lung Arthritis Macular degeneration Spinal stenosis Ulcer of right lower leg history of Warfarin anticoagulation Gout Prostate cancer Bladder cancer Afib Surgical History History of joint replacement bilateral hips History of phacoemulsification of cataract of both eyes with intraocular lens implantation History of cystoscopy History of cardiac catheterization History of heart surgery aortic valve replaced S/P left rotator cuff repair History of prostatectomy History of bladder surgery History of hip surgery left hip replaced Family History Father CAD (coronary artery disease) Mother CAD (coronary artery disease) Brother Bipolar 1 disorder COPD (chronic obstructive pulmonary disease) Grandparent Cancer Grandparent Diabetes Daughter Bipolar 1 disorder Brother Legacy FamHx Relation: Brother(s) COPD (chronic obstructive pulmonary disease) Legacy FamHx Relation: Brother(s) Father 37 yrs Heart disease Mother Heart disease 67 yrs Sibling Cancer Legacy Famx Problem: Diagnosed with Cancer Other Afib Social History Smoking Status: Never smoker Tobacco Type: cigarettes Substance Use Type: Alcohol Substance Abuse Comment: beer with dinner Meds Medications and Allergies Allergies amoxicillin Allergy (Severe, Verified 01/21/24 15:33) Swelling of Lip/Tongue/Throat adhesive Allergy (Unknown, Verified 01/21/24 15:33) Rash bacitracin [From Neosporin (ceo-sgn-hxnba)] Allergy (Unknown, Verified 01/21/24 15:33) itch and rash, rash neomycin [From Neosporin (wll-rcu-qurft)] Allergy (Unknown, Verified 01/21/24 15:33) itch and rash, rash Penicillins Allergy (Unknown, Verified 01/21/24 15:33) Anaphylaxis polymyxin B [From Neosporin (nok-fsi-iwpxn)] Allergy (Unknown, Verified 01/20/2415:33) Rash and itch, rash Home Medications pantoprazole 40 mg tablet,delayed release 40 mg PO QHS 01/19/19 [History Confirmed 01/21/24] aspirin 81 mg tablet,delayed release (Adult Aspirin Regimen) 81 mg PO DAILY 12/20/23 [History Confirmed 01/21/24] atorvastatin 80 mg tablet 40 mg PO DAILY 12/20/23 [History Confirmed 01/21/24] acetaminophen 500 mg tablet 1,000 mg (2 x 500 mg) PO Q6H PRN Fever Or Pain #0 tabs 12/23/23 [Rx Confirmed 01/21/24] warfarin 5 mg tablet 7.5 mg (1.5 x 5 mg) PO DAILY 30 days #45 tabs 12/23/23 [Rx Confirmed 01/21/24] oxycodone 5 mg tablet 5 mg PO Q6H PRN Severe Pain 5 days #20 tabs 12/29/23 [Rx Confirmed 01/05/24] polyethylene glycol 3350 17 gram oral powder packet (HealthyLax) 17 g PO DAILY #0 ea 12/29/23 [Rx Confirmed 01/05/24] Exam Physical Exam Vital Signs: Temp Pulse Resp BP Pulse Ox O2 Del Method 98.4 F 78 18 143/95 H 96 Room Air 01/21/24 15:16 01/21/24 18:30 01/21/24 18:30 01/21/24 18:30 01/21/24 18:30 01/21/24 18:30 Narrative: CONST-resting comfortably in bed, cooperative HEAD - Normocephalic and atraumatic EENT-Sclera nonicteric and conjunctive are nonerythemic, moist oral mucosa, pharynx clear NECK-Supple, no cervical lymphadenopathy CARDIAC-normal rate, Irregular rhythm, normal S1 & S2. PULM-diminished without wheeze or rhonchi, RA, no accessory muscle use or cough noted ABD - Soft. Bowel sounds are normal. No distention No tenderness EXTREM-no edema BLE calves nontender. Tenderness to right leg, intact in brace SKIN-fair skin turgor, skin, bruising to left face MS- MAEX4 spontaneously with equal with equal strength NEURO- A&Ox3 speech clear and tongue midline, equal facial symmetry no focal motor deficits PSYCH-Mood, affect and behavior appropriate Results - Hospitalist H&P Lab Results Labs: Laboratory Last Values Corrected WBC 7.3 X10E3/uL (4.1-10.5) 01/21/24 15:14 Uncorrected WBC Count 7.3 x10E3/uL (4.1-10.5) 01/21/24 15:14 RBC 4.10 X10E6/uL (3.90-5.60) 01/21/24 15:14 Hgb 12.3 g/dL (13.0-17.0) L 01/21/24 15:14 Hct 37.4 % (38.8-50.0) L 01/21/24 15:14 MCV 91.2 fl (83.5-101) 01/21/24 15:14 MCH 30.1 pg (27.5-35.2) 01/21/24 15:14 MCHC 33.0 g/dL (32.5-35.6) 01/21/24 15:14 RDW 16.7 % (12.0-14.8) H 01/21/24 15:14 Plt Count 141 x10E3/uL (150-450) L 01/21/24 15:14 MPV 8.7 fl (6.6-10.1) 01/21/24 15:14 Neut % (Auto) N/A 01/21/24 15:14 Lymph % (Auto) N/A 01/21/24 15:14 [place] % (Auto) N/A 01/21/24 15:14 Eos % (Auto) N/A 01/21/24 15:14 Baso % (Auto) N/A 01/21/24 15:14 Nucleat RBC Rel Count N/A 01/21/24 15:14 Neut # (Auto) N/A 01/21/24 15:14 Lymph # (Auto) N/A 01/21/24 15:14 [place] # (Auto) N/A 01/21/24 15:14 Eos # (Auto) N/A 01/21/24 15:14 Baso # (Auto) N/A 01/21/24 15:14 Lymphocytes % 20 % (18-42) 01/21/24 15:14 Monocytes % 10 % (2-11) 01/21/24 15:14 Eosinophils % 2 % (1-3) 01/21/24 15:14 Myelocytes % 3 % (0-0) H 01/21/24 15:14 Segmented Neutrophils 66 % (50-70) 01/21/24 15:14 Monocyte Dist Width 17.72 % (0.00-20.00) 01/21/24 15:14 Platelet Estimate Decreased (Normal) 01/21/24 15:14 Plt Morphology Comment Normal (Normal) 01/21/24 15:14 RBC Morphology N/A 01/21/24 15:14 Poikilocytosis Slight 01/21/24 15:14 Anisocytosis Slight 01/21/24 15:14 Ovalocytes Slight 01/21/24 15:14 PHA Creatinine Clear 61.06 01/21/24 15:14 Sodium 136 mmol/L (136-145) 01/21/24 15:14 Potassium 4.1 mmol/L (3.5-5.1) 01/21/24 15:14 Chloride 104 mmol/L (98-107) 01/21/24 15:14 Carbon Dioxide 25.8 mmol/L (21.0-31.0) 01/21/24 15:14 Anion Gap 10.3 mEq/L (6.0-15.0) 01/21/24 15:14 BUN 23 mg/dL (7-25) 01/21/24 15:14 Creatinine 0.88 mg/dL (0.70-1.30) 01/21/24 15:14 Est GFR (CKD-EPI) > 60.0 mL/Min 01/21/24 15:14 Glucose 107 mg/dL (70-100) H 01/21/24 15:14 POC Glucose 107 mg/dl 01/21/24 15:16 Calcium 9.0 mg/dL (8.6-10.3) 01/21/24 15:14 Troponin I High Sens 14.8 pg/mL (0.0-20.0) 01/21/24 16:45 Assessment & Plan Assessment/Plan (1) Light-headedness: (2) Numbness and tingling in left arm: Plan Left arm numbness and tingling possible CVA P/w complaints of left arm numbness and tingling, lightheadedness, nausea that started around 1 PM this afternoon. Reports that lightheadedness and has resolved, however has some numbness and tingling to his fingers. * Head CT did not show any acute intracranial pathology. * Head/neck CTA did not show any evidence of critical stenosis, aneurysmal dilatation, dissection or occlusion. * Admitted to telemetry * Check orthostatics * Continue aspirin, will check lipid panel in a.m. * Will not be able to obtain MRI due to aortic prosthetic valve and and may need repeat head CT, I will defer this to neurology * No aggressive lowering of BP * Neurology consult * PT/OT/ST Chronic patient's: Atrial fibrillation/aortic stenosis status post TAVR?on Coumadin, aspirin and Lipitor. Resume home medications when verified. Pharmacy consulted for Coumadin dosing CODE STATUS: Full code DVT prophylaxis: On warfarin Attending Physician Attestation: I personally reviewed the history, performed the orellana elements of the exam, formulated the plan of care and confirmed the written note. I agree with the findings and plan as documented in this note and have edited it if needed to reflect my findings and plan. Minna Guevara MD IP vs OBS Justification Based on differential dx, clinical care plan, and risk of adverse events, if untreated, in my clinical judgement this patient requires an acute care setting as: OBSERVATION because of an expectation of an under 2 midnight stay. Estimated length of stay (# of days): 2 Documented By: Italia Moore APRN 01/21/24 1855 Signed By: <Electronically signed by BENJI Moore> 01/21/241926 <Electronically signed by Minna Patricia MD> 01/21/242028 [facility] Work Phone: [phone]) 472-640107-16-2024 Progress note Author Henry Clark [facility] December 29, 2023 12:24pm Note Date/Time December 28, 2023 12:4 2pm [facility] [address] [place] [address] Physiatry(Rehab) Progress Note Signed Patient: Fani Chua MR#: [id number] : 1935 Acct:[id number] Age/Sex: 88 / M Adm Date: 4 Loc: Room: [address] [place] [address] Type: ADM IN Attending Dr: Henry Clark MD Copies to: ~ Date of Service: 12/28/2023 Subjective Subjective Narrative: Mr. Chua is a 88 year old male with past medical history of A-fib on warfarin, aortic stenosis status post TAVR, history of CVA, history of prostate and bladder cancer, and recent diagnosis of comminuted right patellar fracture aftera fall with discharge from the hospital on 12/19 who re-presented to the hospital due to severe pain and inability to care for himself. Patient lives in a 1 level home with his spouse. 3 steps to enter. Normally independent with care. PM&R was consulted for evaluation for inpatient rehab. Patient seen and evaluated today. Lying in bed. States that he feels better today although continues to endorse some right knee pain. Patient was seen by orthopedic surgery today. Knee was aspirated with large hemarthrosis noted. Patient to continue WBAT in knee immobilizer. Can do hinged knee brace locked in extension if needed. Interval History: Patient was seen and evaluated at the bedside. He is doing very well this morning. Pain is mild. He has no cardiopulmonary complaints. No GI or symptoms. He tolerated a.m. PT session very well. He ambulated 580 feet with a walker/straight cane and supervision/standby assistance. He is asking to go home soon as he feels at his functional baseline. Case management is aware, will plan for Thursday or this week. Review of Systems Review of Systems All other systems reviewed & are negative unless noted below or in HPI Exam Physical Exam Vital Signs: Temp Pulse Resp BP Pulse Ox O2 Del Method 97.5 F L 64 18 150/92 H 95 Room Air 12/28/23 05:32 12/28/23 05:32 12/28/23 05:32 12/28/23 05:32 12/28/23 05:32 12/28/23 05:32 Narrative: General: Awake, alert, oriented x3 HENT: Normal to inspection, normocephalic, atraumatic Eyes: PERRL, normal conjunctiva and sclera Neck: Normal ROM, normal visual inspection. Trachea midline. Cardio: Regular heart rate and rhythm Respiratory: Clear to auscultation bilaterally. Normal respiratory effort. No respiratory distress. GI: Abdomen soft, nontender, nondistended, active bowel sounds x4 quadrants Neuro: CN II-XII intact. Strength 5/5, equal bilaterally Extremities: No edema, erythema, cyanosis lower extremity in a knee brace. Ableto wiggle toes without difficulty. No numbness or tingling in the foot. Psych: Mood and affect appropriate. Normal speech. Objective Labs 12/24/23 05:35 12/24/23 05:35 Labs: Laboratory Results - last 24 hr 12/28/23 06:25 PT 22.0 H INR 1.9 Additional Results Results Comments: I reviewed clinical lab tests, radiology reports and obtained and summated medical records and have ordered follow up lab tests and imaging studies as needed for rehabilitation care. Medications and Allergies Allergies and Active Meds: Allergies amoxicillin Allergy (Severe, Verified 12/21/23 20:12) Swelling of Lip/Tongue/Throat adhesive Allergy (Unknown, Verified 12/21/23 20:12) Rash bacitracin [From Neosporin (nei-jzp-quwxn)] Allergy (Unknown, Verified 12/21/23 20:12) itch and rash, rash neomycin [From Neosporin (fip-grt-ykggm)] Allergy (Unknown, Verified 12/21/23 20:12) itch and rash, rash Penicillins Allergy (Unknown, Verified 12/21/23 20:12) Anaphylaxis polymyxin B [From Neosporin (tio-trl-jgwhn)] Allergy (Unknown, Verified 12/21/2419:12) Rash and itch, rash Active Medications Generic Name Dose Route Start Last Admin Trade Name Freq PRN Reason Stop Dose Admin Acetaminophen 500 mg 12/23/23 15:35 12/24/23 22:31 Acetaminophen 500 Mg Tablet PO 12/22/24 15:34 500 mg Q4H PRN Administration Pain Acetaminophen 1,000 mg 12/23/23 16:22 12/27/23 00:13 Acetaminophen 500 Mg Tablet PO 12/22/24 16:21 1,000 mg Q6H PRN Administration Fever Or Pain Al Hydrox/Mg Hydrox/Simethicone 30 ml 12/23/23 15:35 Mag Hydrox/Al Hydrox/Simeth 30 Ml Udc PO 12/22/24 15:34 Q4H PRN Indigestion Albuterol 2 puff 12/23/23 16:22 Albuterol Hfa 60 Puff/8 Gram Inhaler INHALATION 12/22/24 16:21 Q4HR PRN shortness of breath or wheezing Aspirin 81 mg 12/24/23 09:00 12/28/23 09:21 Aspirin 81 Mg Tablet. PO 12/23/24 08:59 81 mg DAILY WILLA Administration Atorvastatin Calcium 40 mg 12/23/23 22:00 12/27/23 20:50 Atorvastatin 40 Mg Tablet PO 12/22/24 21:59 40 mg QHS WILLA Administration Bisacodyl 10 mg 12/23/23 15:35 Bisacodyl 10 Mg Supp.Rect TN 12/22/24 15:34 DAILY PRN Constipation Docusate Sodium 100 mg 12/23/23 15:35 12/24/23 05:43 Docusate 100 Mg Capsule PO 12/22/24 15:34 100 mg BID PRN Administration Constipation Docusate Sodium 283 mg 12/23/23 15:35 Docusate Enema 283 Mg/5 Ml Enema TN 12/22/24 15:34 DAILY PRN Constipation Lactulose 30 gm 12/23/23 15:35 Lactulose 20 Gm/30 Ml Udc PO 12/22/24 15:34 DAILY PRN Constipation Magnesium Oxide 400 mg 12/24/23 09:00 12/28/23 09:21 Magnesium Oxide 400 Mg Tablet PO 12/23/24 08:59 400 mg DAILY WILLA Administration Oxycodone HCl 5 mg 12/23/23 16:22 12/28/23 06:56 Oxycodone Ir 5 Mg Tablet PO 5 mg Q4H PRN Administration Severe Pain Pantoprazole Sodium 40 mg 12/23/23 22:00 12/27/23 20:50 Pantoprazole 40 Mg Tablet. PO 12/22/24 21:59 40 mg QHS WILLA Administration Polyethylene Glycol 17 gm 12/24/23 09:00 12/28/23 09:22 Polyethylene Glycol 3350 17 Gm Powd.Pack PO 12/23/24 08:59 Not Given DAILY WILLA Sennosides 2 tab 12/24/23 12:00 12/24/23 05:44 Sennosides 8.6 Mg Tablet PO 12/23/24 11:59 1 tab DAILY@12 PRN Administration If no BM in 2 days Sennosides 1 tab 12/23/23 16:22 Sennosides 8.6 Mg Tablet PO 12/22/24 16:21 BID PRN constipation Sodium Chloride 0 ml 12/23/23 15:35 Sodium Chloride 0.9 % 10 Ml Syringe IV-PUSH 12/22/24 15:34 PRN PRN Flush Warfarin Sodium 1 each 12/23/23 16:48 Warfarin - Pharmacy Dosing MISCELLANE 12/22/24 16:47 ONCE PRN ZZ.Pharmacy Consult Protocol Assessment/Plan Assessment/Plan (1) Impaired mobility and activities of daily living: (2) Knee pain: (3) Right patella fracture: (4) Right knee injury: (5) History of transcatheter aortic valve replacement (TAVR): (6) History of bladder cancer: (7) History of prostate cancer: (8) Atrial fibrillation: Qualifiers: Atrial fibrillation type: chronic Qualified Code(s): I48.2 - Chronic atrial fibrillation (9) Diabetes mellitus type 2, diet-controlled: (10) Venous stasis of both lower extremities: (11) Hemarthrosis: Plan 88-year-old male with complex medical history as above presents with hemarthrosis and right patella fracture in the setting of Coumadin use, he has represented to the hospital after being discharged home and unable to manage safely given comorbidities, fracture management, need for orthosis for immobilization and risk for recurrent hemarthrosis in the setting of anticoagulation, admitted to rehabilitation unit. -No acute events over the weekend. Continues to rapidly progress in therapy. Asking to be discharged home this week. We will plan for Thursday or this week, case management is aware. He does not need any refills on his medications at discharge unless there were prescribed this admission. Hospitalist to assist with management of comorbid medical conditions Pain control: Optimize. Wean opioids. Tylenol and topical modalities. Bowel and bladder: Continent bowel/bladder. Skin: Monitor right knee. Turn and position for pressure ulcer prophylaxis Sleep: Optimize sleep/wake cycle. DVT prophylaxis: On Coumadin. Functional status: Impaired mobility and self-care. Discharge planning: Home in 1-2 weeks I spent 26 minutes for services, including [id number] encounter with the patient, discussion of the case, plan of care, and exam; and [id number] activities, such as reviewing pertinent entry level sales consultant documentation, recent therapynotes, laboratory and radiology studies, and discussion of case with care team including physician, nursing, disease case manager rn, and therapists. More than 50 % of time was spent on patient/family counseling or coordination ofcare. <Statement entered by Henry Clark MD - 12/29/23 12:22> This documentation has been reviewed and approved. Documented By: Cherelle Schmidt APRN 12/28/23 1 236 Signed By: <Electronically signed by BENJI Schmidt> 12/28/23 1242 <Electronically signed by Henry Clark MD> 12/29/23 1224 [facility] Work Phone: 1(994) 653-369607-12-2024 Consult note Author Ashley Merritt [facility] December 25, 2023 7:46am Note Date/Time December 24, 2023 1:42 pm [facility] [address] [place] [address] Hospitalist Consult Note Signed Patient: Fani Chua MR#: [id number] : 1935 Acct:[id number] Age/Sex: 88 / M Adm Date: 4 Loc: 5T Room: [address] [place] [address] Type: ADM IN Attending Dr: Henry Clark MD Copies to: MD Italia Cherry APRN Robert L Hill, MD Ruta Semaskiene, MD~ HPI DATE OF CONSULTATION: 12/24/23 REQUESTING PROVIDER: Henry Clark Consult Narrative Reason for Consult: Atrial fibrillation HPI: Patient is an 88-year-old male with a PMHx of atrial fibrillation on warfarin, aortic stenosis status post TAVR, CVA, prostate and bladder cancer presented to the emergency department with suprapatellar swelling on his right side and superficial lacerations and excoriations of bilateral knees after sustaining a mechanical fall. Imaging demonstrated a commuted right patella fracture, orthopedics was consulted and he underwent arthrocentesis draining with 75 cc ofbloody drainage and was recommended brace. He was evaluated by physical therapyand Occupational Therapy and recommended acute inpatient rehabilitation. Hospitalist team has been consulted for medical management of atrial fibrillation. Patient seen and examined at bedside. Resting comfortably in bed, reporting minimal pain to the right knee which is immobilized and dressing intact. Reported tolerating physical therapy well. Denies chest pain or palpitation. No cough, dyspnea, or pain with inspiration. No abdominal pain or indigestion,constipation or diarrhea, nausea or vomiting. No dysuria or retention. No headache or dizziness. No fevers Review of Systems Review of Systems Review of systems: 10 point review of systems obtained, negative unless noted in the HPI below [facility] Medical History (Updated 12/24/23 @ 13:41 by Italia Moore APRN) Patella fracture right.12/20/23 Hyperlipidemia Emphysema lung Arthritis Macular degeneration Spinal stenosis Ulcer of right lower leg history of Warfarin anticoagulation Gout Prostate cancer Bladder cancer Afib Surgical History History of joint replacement bilateral hips History of phacoemulsification of cataract of both eyes with intraocular lens implantation History of cystoscopy History of cardiac catheterization History of heart surgery aortic valve replaced S/P left rotator cuff repair History of prostatectomy History of bladder surgery History of hip surgery left hip replaced Family History Father CAD (coronary artery disease) Mother CAD (coronary artery disease) Brother Bipolar 1 disorder COPD (chronic obstructive pulmonary disease) Grandparent Cancer Grandparent Diabetes Daughter Bipolar 1 disorder Brother [facility] Relation: Brother(s) COPD (chronic obstructive pulmonary disease) [facility]am[facility] Relation: Brother(s) Father 37 yrs Heart disease Mother Heart disease 67 yrs Sibling [facility] Problem: Diagnosed with Cancer Social History Smoking Status: Former smoker Tobacco Type: cigarettes Substance Use Type: None Substance Abuse Comment: one beer daily Meds Medications and Allergies Allergies amoxicillin Allergy (Severe, Verified 12/21/23 20:12) Swelling of Lip/Tongue/Throat adhesive Allergy (Unknown, Verified 12/21/23 20:12) Rash bacitracin [From Neosporin ([id number])] Allergy (Unknown, Verified 12/21/23 20:12) itch and rash, rash neomycin [From Neosporin ([id number])] Allergy (Unknown, Verified 12/21/23 20:12) itch and rash, rash Penicillins Allergy (Unknown, Verified 12/21/23 20:12) Anaphylaxis polymyxin B [From Neosporin ([id number])] Allergy (Unknown, Verified 12/21/2419:12) Rash and itch, rash Home Medications pantoprazole 40 mg tablet,delayed release 40 mg PO QHS 01/19/19 [History Confirmed 12/23/23] aspirin 81 mg tablet,delayed release (Adult Aspirin Regimen) 81 mg PO DAILY 12/20/23 [History Confirmed 12/23/23] atorvastatin 80 mg tablet 40 mg PO DAILY 12/20/23 [History Confirmed 12/23/23] magnesium oxide 400 mg PO DAILY #30 tabs 12/20/23 [Rx Confirmed 12/23/23] acetaminophen 500 mg tablet 1,000 mg (2 x 500 mg) PO Q6H PRN Fever Or Pain #0 tabs 12/23/23 [Rx Confirmed 12/23/23] albuterol sulfate 90 mcg/actuation aerosol inhaler 2 inh inhalation Q4HR PRN shortness of breath or wheezing #8.5 grams 12/23/23 [Rx Confirmed 12/23/23] oxycodone 5 mg tablet 5 mg PO Q4H PRN Severe Pain 3 days #10 tabs 12/23/23 [Rx Confirmed 12/23/23] polyethylene glycol 3350 17 gram/dose oral powder (Miralax) 8.5 g PO DAILY #119 grams 12/23/23 [Rx Confirmed 12/23/23] sennosides 8.6 mg tablet (Senokot) 8.6 mg PO BID PRN constipation #60 tabs 12/23/23 [Rx Confirmed 12/23/23] warfarin 5 mg tablet 7.5 mg (1.5 x 5 mg) PO DAILY 30 days #45 tabs 12/23/23 [Rx Confirmed 12/23/23] Active Medications: Active Medications Generic Name Dose Route Start Last Admin Trade Name Freq PRN Reason Stop Dose Admin Acetaminophen 500 mg 12/23/23 15:35 12/24/23 05:43 Acetaminophen 500 Mg Tablet PO 12/22/24 15:34 500 mg Q4H PRN Administration Pain Acetaminophen 1,000 mg 12/23/23 16:22 Acetaminophen 500 Mg Tablet PO 12/22/24 16:21 Q6H PRN Fever Or Pain Al Hydrox/Mg Hydrox/Simethicone 30 ml 12/23/23 15:35 Mag Hydrox/Al Hydrox/Simeth 30 Ml Udc PO 12/22/24 15:34 Q4H PRN Indigestion Albuterol 2 puff 12/23/23 16:22 Albuterol Hfa 60 Puff/8 Gram Inhaler INHALATION 12/22/24 16:21 Q4HR PRN shortness of breath or wheezing Aspirin 81 mg 12/24/23 09:00 12/24/23 08:07 Aspirin 81 Mg Tablet. PO 12/23/24 08:59 81 mg DAILY WILLA Administration Atorvastatin Calcium 40 mg 12/23/23 22:00 12/23/23 21:35 Atorvastatin 40 Mg Tablet PO 12/22/24 21:59 40 mg QHS WILLA Administration Bisacodyl 10 mg 12/23/23 15:35 Bisacodyl 10 Mg Supp.Rect TN 12/22/24 15:34 DAILY PRN Constipation Docusate Sodium 100 mg 12/23/23 15:35 12/24/23 05:43 Docusate 100 Mg Capsule PO 12/22/24 15:34 100 mg BID PRN Administration Constipation Docusate Sodium 283 mg 12/23/23 15:35 Docusate Enema 283 Mg/5 Ml Enema TN 12/22/24 15:34 DAILY PRN Constipation Lactulose 30 gm 12/23/23 15:35 Lactulose 20 Gm/30 Ml Udc PO 12/22/24 15:34 DAILY PRN Constipation Magnesium Oxide 400 mg 12/24/23 09:00 12/24/23 08:07 Magnesium Oxide 400 Mg Tablet PO 12/23/24 08:59 400 mg DAILY WILLA Administration Oxycodone HCl 5 mg 12/23/23 16:22 12/24/23 05:43 Oxycodone Ir 5 Mg Tablet PO 5 mg Q4H PRN Administration Severe Pain Pantoprazole Sodium 40 mg 12/23/23 22:00 12/23/23 21:35 Pantoprazole 40 Mg Tablet.Dr PO 12/22/24 21:59 40 mg QHS WILLA Administration Polyethylene Glycol 17 gm 12/24/23 09:00 12/24/23 08:07 Polyethylene Glycol 3350 17 Gm Powd.Pack PO 12/23/24 08:59 17 gm DAILY WILLA Administration Sennosides 2 tab 12/24/23 12:00 12/24/23 05:44 Sennosides 8.6 Mg Tablet PO 12/23/24 11:59 1 tab DAILY@12 PRN Administration If no BM in 2 days Sennosides 1 tab 12/23/23 16:22 Sennosides 8.6 Mg Tablet PO 12/22/24 16:21 BID PRN constipation Sodium Chloride 0 ml 12/23/23 15:35 Sodium Chloride 0.9 % 10 Ml Syringe IV-PUSH 12/22/24 15:34 PRN PRN Flush Warfarin Sodium 1 each 12/23/23 16:48 Warfarin - Pharmacy Dosing MISCELLANE 12/22/24 16:47 ONCE PRN ZZ.Pharmacy Consult Protocol Warfarin Sodium 10 mg/ 12.5 mg 12/24/23 17:00 Warfarin Sodium 2.5 mg PO 12/24/23 17:01 ONCE ONE Exam Physical Exam Vital Signs: Temp Pulse Resp BP Pulse Ox O2 Del Method 97.8 F 63 16 126/84 96 Room Air 12/24/23 05:32 12/24/23 05:32 07/11/24 05:32 12/24/23 05:32 12/24/23 05:32 12/24/23 07:00 Narrative: CONST-alert, awake resting comfortably in bed HEAD - Normocephalic and atraumatic. Hematoma to left forehead EENT-Sclera nonicteric and conjunctive are nonerythemic, moist oral mucosa, pharynx clear NECK-Supple, no cervical lymphadenopathy CARDIAC-normal rate, regular rhythm, normal S1 & S2. PULM CTA bilaterally, RA, no accessory muscle use or cough noted ABD - Soft. Bowel sounds are normal. No distention No tenderness EXTREM-no edema BLE calves nontender. Right leg tenderness and immobilized SKIN-right facial bruising, resting intact to right knee MS- MAEX4 spontaneously with equal with equal strength NEURO- A&Ox3 speech clear and tongue midline, equal facial symmetry no focal motor deficits PSYCH-Mood, affect and behavior appropriate Results - Hospitalist Consult Lab Results Labs: Laboratory Results - last 72 hr 12/24/23 05:35: Corrected WBC 6.5, Uncorrected WBC Count 6.5, RBC 4.19, Hgb 12.7L, Hct 37.2 L, MCV 88.8, MCH 30.2, MCHC 34.0, RDW 15.1 H, Plt Count 132 L, MPV 8.5, Neut % (Auto) 66.9, Lymph % (Auto) 15.2, [place] % (Auto) 14.8, Eos % (Auto) 2.6, Baso % (Auto) 0.5, Nucleat RBC Rel Count 0.2, Neut # (Auto) 4.4, Lymph # (Auto) 1.0, [place] # (Auto) 1.0 H, Eos # (Auto) 0.2, Baso # (Auto) 0.0, PT 14.7 H,INR 1.3, PHA Creatinine Clear 59.23, Sodium 137, Potassium 4.4, Chloride 102, Carbon Dioxide 25.3, Anion Gap 14.1, BUN 30 H, Creatinine 0.87, Est GFR (CKD-EPI) > 60.0, Glucose 94, Calcium 8.5 L, Total Bilirubin 1.0, AST 25, ALT 23, Alkaline Phosphatase 83, Total Protein 6.1 L, Albumin 3.4 L, Globulin 2.7, Albumin/Globulin Ratio 1.3, Prealbumin 10.2 L Assessment & Plan Assessment/Plan (1) Right patella fracture: (2) Impaired mobility and activities of daily living: Plan Right patella fracture status status post fall Impaired mobility and activities of daily living * Plan of care for rehabilitation, PT/OT, DVT prophylaxis per PM&R team Chronic atrial fibrillation on warfarin?heart rate controlled GERD?on Protonix History of aortic stenosis status post 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 Documented By: Italia Moore APRN 12/24/23 1335 Signed By: <Electronically signed by BENJI Moore> 12/24/23 1836 <Electronically signed by Ashley Merritt MD> 12/25/23 0746 [facility] Work Phone: 1(351) 385-411207-11-2024 History and physical note Author Henry Clark [facility] December 24, 2023 12:19pm Note Date/Time December 24, 2023 9:55 am [facility] [address] [place] [address] Physiatry (Rehab) H&P Signed Patient: Fani Chua MR#: [id number] : 1935 Acct:[id number] Age/Sex: 88 / M Adm Date: 4 Loc: Room: [address] [place] [address] Type: ADM IN Attending Dr: Henry Clark MD Copies to: MD María Cherry MD~ Date of Service: 12/24/2023 HPI The patient was seen and examined on: 12/24/23 Etiologic Diagnosis/Impairment Group: 08.9 Chief complaint: pain, loss of function History of Present Illness: Mr. Chua is a 88 year old male with past medical history of A-fib on warfarin, aortic stenosis status post TAVR, history of CVA, history of prostate and bladder cancer, and recent diagnosis of comminuted right patellar fracture aftera fall with discharge from the hospital on 12/19 who re-presented to the hospital due to severe pain and inability to care for himself. Patient lives in a 1 level home with his spouse. 3 steps to enter. Normally independent with care. PM&R was consulted for evaluation for inpatient rehab. Patient seen and evaluated today. Lying in bed. States that he feels better today although continues to endorse some right knee pain. Patient was seen by orthopedic surgery today. Knee was aspirated with large hemarthrosis noted. Patient to continue WBAT in knee immobilizer. Can do hinged knee brace locked in extension if needed. Interval History: Doing well this morning. Continued pain. Difficulty with knee immobilizer donning. Needed some encouragement with therapy. [facility] Medical History Patella fracture right.12/20/23 Hyperlipidemia Emphysema lung Arthritis Macular degeneration Spinal stenosis Ulcer of right lower leg history of Warfarin anticoagulation Gout Prostate cancer Bladder cancer Afib Surgical History History of joint replacement bilateral hips History of phacoemulsification of cataract of both eyes with intraocular lens implantation History of cystoscopy History of cardiac catheterization History of heart surgery aortic valve replaced S/P left rotator cuff repair History of prostatectomy History of bladder surgery History of hip surgery left hip replaced Family History Father CAD (coronary artery disease) Mother CAD (coronary artery disease) Brother Bipolar 1 disorder COPD (chronic obstructive pulmonary disease) Grandparent Cancer Grandparent Diabetes Daughter Bipolar 1 disorder Brother [facility] Relation: Brother(s) COPD (chronic obstructive pulmonary disease) [facility] Relation: Brother(s) Father 37 yrs Heart disease Mother Heart disease 67 yrs Sibling Cancer [facility] Problem: Diagnosed with Cancer Social History Smoking Status: Former smoker Tobacco Type: cigarettes Substance Use Type: None Substance Abuse Comment: one beer daily Review of Systems Review of Systems All other systems reviewed & are negative unless noted below or in HPI Meds Medications and Allergies Allergies amoxicillin Allergy (Severe, Verified 12/21/23 20:12) Swelling of Lip/Tongue/Throat adhesive Allergy (Unknown, Verified 12/21/23 20:12) Rash bacitracin [From Neosporin ([id number])] Allergy (Unknown, Verified 12/21/23 20:12) itch and rash, rash neomycin [From Neosporin ([id number])] Allergy (Unknown, Verified 12/21/23 20:12) itch and rash, rash Penicillins Allergy (Unknown, Verified 12/21/23 20:12) Anaphylaxis polymyxin B [From Neosporin ([id number])] Allergy (Unknown, Verified 12/21/2419:12) Rash and itch, rash Home and Active Meds: Home Medications pantoprazole 40 mg tablet,delayed release 40 mg PO QHS 01/19/19 [History Confirmed 12/23/23] aspirin 81 mg tablet,delayed release (Adult Aspirin Regimen) 81 mg PO DAILY 12/20/23 [History Confirmed 12/23/23] atorvastatin 80 mg tablet 40 mg PO DAILY 12/20/23 [History Confirmed 12/23/23] magnesium oxide 400 mg PO DAILY #30 tabs 12/20/23 [Rx Confirmed 12/23/23] acetaminophen 500 mg tablet 1,000 mg (2 x 500 mg) PO Q6H PRN Fever Or Pain #0 tabs 12/23/23 [Rx Confirmed 12/23/23] albuterol sulfate 90 mcg/actuation aerosol inhaler 2 inh inhalation Q4HR PRN shortness of breath or wheezing #8.5 grams 12/23/23 [Rx Confirmed 12/23/23] oxycodone 5 mg tablet 5 mg PO Q4H PRN Severe Pain 3 days #10 tabs 12/23/23 [Rx Confirmed 12/23/23] polyethylene glycol 3350 17 gram/dose oral powder (Miralax) 8.5 g PO DAILY #119 grams 12/23/23 [Rx Confirmed 12/23/23] sennosides 8.6 mg tablet (Senokot) 8.6 mg PO BID PRN constipation #60 tabs 12/23/23 [Rx Confirmed 12/23/23] warfarin 5 mg tablet 7.5 mg (1.5 x 5 mg) PO DAILY 30 days #45 tabs 12/23/23 [Rx Confirmed 12/23/23] Active Medications Acetaminophen (Acetaminophen 500 Mg Tablet) 500 mg PO Q4H PRN PRN Reason: Pain Stop: 12/22/24 15:34 Last Admin: 12/24/23 05:43 Dose: 500 mg Acetaminophen (Acetaminophen 500 Mg Tablet) 1,000 mg PO Q6H PRN PRN Reason: Fever Or Pain Stop: 12/22/24 16:21 Al Hydrox/Mg Hydrox/Simethicone (Mag Hydrox/Al Hydrox/Simeth 30 Ml Udc) 30 ml PO Q4H PRN PRN Reason: Indigestion Stop: 12/22/24 15:34 Albuterol (Albuterol Hfa 60 Puff/8 Gram Inhaler) 2 puff INHALATION Q4HR PRN PRN Reason: shortness of breath or wheezing Stop: 12/22/24 16:21 Aspirin (Aspirin 81 Mg Tablet.) 81 mg PO DAILY [facility] Stop: 12/23/24 08:59 Last Admin: 12/24/23 08:07 Dose: 81 mg Atorvastatin Calcium (Atorvastatin 40 Mg Tablet) 40 mg PO QHS WILLA Stop: 12/22/24 21:59 Last Admin: 12/23/23 21:35 Dose: 40 mg Bisacodyl (Bisacodyl 10 Mg Supp.Rect) 10 mg TN DAILY PRN PRN Reason: Constipation Stop: 12/22/24 15:34 Docusate Sodium (Docusate 100 Mg Capsule) 100 mg PO BID PRN PRN Reason: Constipation Stop: 12/22/24 15:34 Last Admin: 12/24/23 05:43 Dose: 100 mg Docusate Sodium (Docusate Enema 283 Mg/5 Ml Enema) 283 mg TN DAILY PRN PRN Reason: Constipation Stop: 12/22/24 15:34 Lactulose (Lactulose 20 Gm/30 Ml Udc) 30 gm PO DAILY PRN PRN Reason: Constipation Stop: 12/22/24 15:34 Magnesium Oxide (Magnesium Oxide 400 Mg Tablet) 400 mg PO DAILY [facility] Stop: 12/23/24 08:59 Last Admin: 12/24/23 08:07 Dose: 400 mg Oxycodone HCl (Oxycodone Ir 5 Mg Tablet) 5 mg PO Q4H PRN PRN Reason: Severe Pain Last Admin: 12/24/23 05:43 Dose: 5 mg Pantoprazole Sodium (Pantoprazole 40 Mg Tablet.) 40 mg PO QHS WILLA Stop: 12/22/24 21:59 Last Admin: 12/23/23 21:35 Dose: 40 mg Polyethylene Glycol (Polyethylene Glycol 3350 17 Gm Powd.Pack) 17 gm PO DAILY [facility] Stop: 12/23/24 08:59 Last Admin: 12/24/23 08:07 Dose: 17 gm Sennosides (Sennosides 8.6 Mg Tablet) 2 tab PO DAILY@12 PRN PRN Reason: If no BM in 2 days Stop: 12/23/24 11:59 Last Admin: 12/24/23 05:44 Dose: 1 tab Sennosides (Sennosides 8.6 Mg Tablet) 1 tab PO BID PRN PRN Reason: constipation Stop: 12/22/24 16:21 Sodium Chloride (Sodium Chloride 0.9 % 10 Ml Syringe) 0 ml IV-PUSH PRN PRN PRN Reason: Flush Stop: 12/22/24 15:34 Warfarin Sodium (Warfarin - Pharmacy Dosing) 1 each MISCELLANE ONCE PRN; Protocol PRN Reason: ZZ.Pharmacy Consult Stop: 12/22/24 16:47 Warfarin Sodium 10 mg/ (Warfarin Sodium 2.5 mg) 12.5 mg PO ONCE ONE Stop: 12/24/23 17:01 Exam Physical Exam Vital Signs: Temp Pulse Resp BP Pulse Ox O2 Del Method 97.8 F 63 16 126/84 96 Room Air 12/24/23 05:32 12/24/23 05:32 12/24/23 05:32 12/24/23 05:32 12/24/23 05:32 12/24/23 05:32 Narrative: Gen: Awake, oriented, cooperative. HEENT: Atraumatic, PERRL, EOMI Resp: No respiratory distress Cardio: Extremities well perfused MSK: Moves all extremities spontaneously. Right leg in extension with anne wrap Neuro: CN grossly intact Skin: No swelling, erythema, ecchymosis appreciated Psych: Mood and affect normal Results - Phys. Rehab Labs Labs: Laboratory Results - last 24 hr 12/24/23 05:35 Corrected WBC 6.5 Uncorrected WBC Count 6.5 RBC 4.19 Hgb 12.7 L Hct 37.2 L MCV 88.8 MCH 30.2 MCHC 34.0 RDW 15.1 H Plt Count 132 L MPV 8.5 Neut % (Auto) 66.9 Lymph % (Auto) 15.2 [place] % (Auto) 14.8 Eos % (Auto) 2.6 Baso % (Auto) 0.5 Nucleat RBC Rel Count 0.2 Neut # (Auto) 4.4 Lymph # (Auto) 1.0 [place] # (Auto) 1.0 H Eos # (Auto) 0.2 Baso # (Auto) 0.0 PT 14.7 H INR 1.3 PHA Creatinine Clear 59.23 Sodium 137 Potassium 4.4 Chloride 102 Carbon Dioxide 25.3 Anion Gap 14.1 BUN 30 H Creatinine 0.87 Est GFR (CKD-EPI) > 60.0 Glucose 94 Calcium 8.5 L Total Bilirubin 1.0 AST 25 ALT 23 Alkaline Phosphatase 83 Total Protein 6.1 L Albumin 3.4 L Globulin 2.7 Albumin/Globulin Ratio 1.3 Additional Results Results Comment: I reviewed clinical lab tests, radiology reports and obtained and summated medical records and have ordered follow up lab tests and imaging studies as needed for rehabilitation care. Individualized Plan of Care Individualized Plan of Care Plan of Care: Individualized Overall Plan of Care: Admit Date/Time: December 23, 2023 Expected LOS: 14 days Expected Discharge Destination: Home Rehabilitation [facility]: 9 Primary Diagnosis: Right patella fracture; hemarthrosis Patient?s/Family?s anticipated outcomes/personal goals: To have patient become more independent and to return home. Medical/ Functional Prognosis: Good Anticipated Functional Outcomes/Goals and Interventions: -Therapy Functional Outcome/Goal: Mobility/Locomotion: Patient likely to be independent with ambulation with assistive device. Anticipated interventions: Physician management, PT, OT, Dietitian, Rehab Nursing - Therapy Functional Outcome/Goal: Self Care: Patient likely to be functionally independent for activities of daily living using assistive / adaptive equipment as needed. Anticipated interventions: Physician management, PT, OT, Dietitian, Rehab Nursing - Therapy Functional Outcome/Goal: Bladder/Bowel Management: Patient likely to be independent with bladder care and independent with bowel care. Anticipated interventions: Physician management, PT, OT, Dietitian, Rehab Nursing -Therapy Functional Outcome/Goal: Communication/Cognition: Patient will be able to communicate fully and be safe cognitively. Anticipated interventions: Physician management, PT, OT, Dietitian, Rehab Nursing -Therapy Functional Outcome/Goal: Patient will be independent for bed mobility and transfers Anticipated interventions: Physician management, PT, OT, Dietitian, Rehab Nursing -Therapy Functional Outcome/Goal: Patient will improve endurance to be able to tolerate all daily self care activities and avocational activities. Anticipated interventions: Physician management, PT, OT, Nutrition, Rehab Nursing -Therapy Functional Outcome/Goal: Patient will understand and assimilate / integrate education regarding management of their medical conditions to maintainhealth and wellbeing. Anticipated interventions: Physician management, PT, OT, Dietitian, Rehab Nursing Required Therapy PT: 1.5 hour per day at least 5 days per week with additional therapy on as needed basis. Comments: PT to improve pt's strength, endurance, bed mobility, transfers (sit-stand), standing balance, gait quality on level surfaces and stairs, coordination and functional ADL skills. Will also work to improve pt's safety awareness during transfers and ambulation. OT: 1.5 hour per day at least 5 days per week with additional therapy on as needed basis. Comments: OT for basic ADL re-training (bathing, dressing, toileting, continence, grooming, feeding, transferring), to increase activity tolerance andfunctional mobility and to evaluate for adaptive and assistive devices. Will work to improve pt's endurance and educate pt on fall prevention and energy conservation techniques-pacing strategies and proper breathing techniques duringfunctional tasks. Other: Nutrition, Rehab nursing, Wound, P&O RATIONALE FOR IRF ADMISSION: Patient has both medical and functional complexities that require 24 hour daily monitoring and intervention from [employer] as well as other consulting physicians including internal medicine as well as 24 hour daily machine striper nursing - for medical safe / optimal management. Patient requires interdisciplinary therapy team rehabilitation care including OT, PT, SW, Rehab Nursing, requires and can tolerate at least 3 hoursof daily OT and PT therapy at least 5 days weekly. The following medical conditions significantly impact the rehabilitation process and are being addressed daily and can not be managed at home or in a lesser intense medical setting: Refer to above problem oriented plan of care Assessment/Plan (1) Impaired mobility and activities of daily living: (2) Knee pain: (3) Right patella fracture: (4) Right knee injury: (5) History of transcatheter aortic valve replacement (TAVR): (6) History of bladder cancer: (7) History of prostate cancer: (8) Atrial fibrillation: Qualifiers: Atrial fibrillation type: chronic Qualified Code(s): I48.2 - Chronic atrial fibrillation (9) Diabetes mellitus type 2, diet-controlled: (10) Venous stasis of both lower extremities: (11) Hemarthrosis: Plan 88-year-old male with complex medical history as above presents with hemarthrosis and right patella fracture in the setting of Coumadin use, he has represented to the hospital after being discharged home and unable to manage safely given comorbidities, fracture management, need for orthosis for immobilization and risk for recurrent hemarthrosis in the setting of anticoagulation,admitted to rehabilitation unit. -Trend INR -Monitor right knee site -Titrate pain meds as ordered -Resume home medications -Therapy as ordered in immobilizer. Hospitalist to assist with management of comorbid medical conditions Pain control: Optimize. Wean opioids. Tylenol and topical modalities. Bowel and bladder: Continent bowel/bladder. Skin: Monitor right knee. Turn and position for pressure ulcer prophylaxis Sleep: Optimize sleep/wake cycle. DVT prophylaxis: On Coumadin. Functional status: Impaired mobility and self-care. Discharge planning: Home in 1-2 weeks I completed a substantive portion of this encounter, the medical decision makingportion of this note in its entirety, including Allied health note review, nursing note review, entry level sales consultant note review, discussion with nursing and case management, and more than 50% of my time was spent on counseling and coordination of care, time spent 70 minutes Patient was personally seen by me, Dr. Clark, on the day of encounter, within 24hours of rehab admission, reviewed the history and the relevant portions of the chart, including current orders, allied health and entry level sales consultant notes, labs/imaging and performed orellana elements of exam and I formulated the plan of care and facilitated the medical decision making. Documented By: Henry Clark MD 12/24/23 0955 Signed By: <Electronically signed by Henry Clark MD> 12/24/23 [facility] Work Phone: [phone]) 535-100607-09-2024 Consult note Author Elver Cifuentes [facility] December 22, 2023 2:35pm Note Date/Time December 22, 2023 9:25a m [facility] [address] [place] [address] Physiatry (Rehab) Consult Note Signed Patient: Fani Chua MR#: [id number] : 1935 Acct:[id number] Age/Sex: 88 / M Adm Date: 4 Loc: 4N Room: [address] [place] [address] Type: ADM INOo Attending Dr: Ashley Merritt MD Copies to: MD María Agarwal MD Ruta Semaskiene, MD~ HPI Consult Date: 12/22/23 Requesting Physician: Ashley Merritt MD Primary Care Provider: María Anderson MD Consult Narrative Reason for consult: Evaluation for inpatient rehab HPI: Mr. Chua is a 88 year old male with past medical history of A-fib on warfarin, aortic stenosis status post TAVR, history of CVA, history of prostate and bladder cancer, and recent diagnosis of comminuted right patellar fracture aftera fall with discharge from the hospital on 12/19 who re-presented to the hospital due to severe pain and inability to care for himself. Patient lives in a 1 level home with his spouse. 3 steps to enter. Normally independent with care. PM&R was consulted for evaluation for inpatient rehab. Patient seen and evaluated today. Lying in bed. States that he feels better today although continues to endorse some right knee pain. Patient was seen by orthopedic surgery today. Knee was aspirated. Patient to continue WBAT in knee immobilizer. Can do hinged knee brace locked in extension if needed. The patient is agreeable to inpatient rehab if approved. This was recommend prior to his discharge on 12/19 although patient decided to go home instead. Did participate with therapy this morning and was a heavy assist. Review of Systems Review of Systems All other systems reviewed & are negative unless noted below or in HPI [facility] Medical History Patella fracture right.12/20/23 Hyperlipidemia Emphysema lung Arthritis Macular degeneration Spinal stenosis Ulcer of right lower leg history of Warfarin anticoagulation Gout Prostate cancer Bladder cancer Afib Surgical History History of joint replacement bilateral hips History of phacoemulsification of cataract of both eyes with intraocular lens implantation History of cystoscopy History of cardiac catheterization History of heart surgery aortic valve replaced S/P left rotator cuff repair History of prostatectomy History of bladder surgery History of hip surgery left hip replaced Family History Father CAD (coronary artery disease) Mother CAD (coronary artery disease) Brother Bipolar 1 disorder COPD (chronic obstructive pulmonary disease) Grandparent Cancer Grandparent Diabetes Daughter Bipolar 1 disorder Brother Legacy FamHx Relation: Brother(s) COPD (chronic obstructive pulmonary disease) Legacy FamHx Relation: Brother(s) Father 37 yrs Heart disease Mother Heart disease 67 yrs Sibling Cancer Legacy [facility] Problem: Diagnosed with Cancer Social History Smoking Status: Former smoker Tobacco Type: cigarettes Substance Use Type: None Substance Abuse Comment: one beer daily Meds Medications and Allergies Allergies amoxicillin Allergy (Severe, Verified 12/21/23 20:12) Swelling of Lip/Tongue/Throat adhesive Allergy (Unknown, Verified 12/21/23 20:12) Rash bacitracin [From Neosporin (dki-ray-[id number])] Allergy (Unknown, Verified 12/21/23 20:12) itch and rash, rash neomycin [From Neosporin (ofw-bsw-klawi)] Allergy (Unknown, Verified 12/21/23 20:12) itch and rash, rash Penicillins Allergy (Unknown, Verified 12/21/23 20:12) Anaphylaxis polymyxin B [From Neosporin (rln-tau-vutpo)] Allergy (Unknown, Verified 12/21/2419:12) Rash and itch, rash Home Medications pantoprazole 40 mg tablet,delayed release 40 mg PO QHS 01/19/19 [History Confirmed 12/21/23] warfarin 5 mg tablet 7.5 mg PO DAILY 02/05/20 [History Confirmed 12/22/23] tramadol 50 mg tablet 50 mg PO Q6H PRN Pain 10/01/21 [History Confirmed 12/21/23] aspirin 81 mg tablet,delayed release (Adult Aspirin Regimen) 81 mg PO DAILY 12/20/23 [History Confirmed 12/21/23] atorvastatin 80 mg tablet 40 mg PO DAILY 12/20/23 [History Confirmed 12/21/23] magnesium oxide 400 mg PO DAILY #30 tabs 12/20/23 [Rx Confirmed 12/21/23] oxycodone 5 mg tablet 5 mg PO Q8HR PRN Severe Pain 3 days #10 tabs 12/20/23 [Rx Confirmed 12/21/23] Exam Physical Exam Vital Signs: Temp Pulse Resp BP Pulse Ox O2 Del Method 97.9 F 74 16 121/72 95 Room Air 12/22/23 07:45 12/22/23 07:45 12/22/23 07:45 12/22/23 07:45 12/22/23 07:45 12/22/23 07:45 Narrative: Gen: Awake, oriented, cooperative. HEENT: Atraumatic, PERRL, EOMI Resp: No respiratory distress Cardio: Extremities well perfused MSK: Moves all extremities spontaneously. Right leg in extension with anne wrap Neuro: CN grossly intact Skin: No swelling, erythema, ecchymosis appreciated Psych: Mood and affect normal Results - Phys. Rehab Labs Labs: Laboratory Results - last 24 hr 12/22/23 06:56 PT 16.3 H INR 1.4 Assessment/Plan (1) Right patella fracture: (2) Right knee injury: (3) Knee pain: (4) Fall from slip, trip, or stumble: (5) Pain: (6) Impaired mobility and activities of daily living: Plan This is an 88 y/o male with recent h/o right patella fracture who presented to the hospital due to knee pain and inability to walk. Has been seen by orthopedicsurgery. Large hemarthrosis was aspirated. Patient is WBAT with knee locked in extension. -Was a heavy assist with therapy today. Was doing better on 12/19. suspect that this was due to increased pain and swelling in knee. -Patient is appropriate for inpatient rehab when OK for discharge. -Thank you for this consult. Patient was personally seen by me, Dr. Cifuentes, on the day of encounter, reviewed the history and the relevant portions of the chart, including current orders, allied health and entry level sales consultant notes, labs/imaging and performed orellana elements of exam and I formulated the plan of care and facilitated the medical decision making. I completed a substantive portion of this encounter, the medical decision makingportion of this note in its entirety, including Allied health note review, nursing note review, entry level sales consultant note review, discussion with nursing and case management, and more than 50% of my time was spent on counseling and coordination of care, time spent 60 minutes Documented By: Elver Cifuentes MD [id number] Signed By: <Electronically signed by Elver Cifuentes MD> 12/22/23 [address] [facility] Work Phone: [phone]) [phone] Consult note Author Rloy Morales [facility] December 22, 2023 11:35am Note Date/Time December 22, 2023 10:55 am [facility] [address] [place] [address] Orthopedic Consult Note Signed Patient: Fani Chua MR#: [id number] : 1935 Acct:[id number] Age/Sex: 88 / M Adm Date: 4 Loc: 4N Room: 0S5689-2 Type: ADM INOo Attending Dr: Ashley Merritt MD Copies to: DO María Lowe MD Ruta Semaskiene, MD~ History of Present Illness HPI Consult date: 12/22/2023 Requesting provider: Ashley Merritt MD Consult reason: fracture History of present illness: Patient is an 88-year-old male who was admitted this past weekend with right patella fracture. It was communicated that the patient wanted to be discharged home with knee immobilizer and weightbearing as tolerated while in knee immobilizer after working with therapy. He was discharged and subsequently readmitted to the hospital due to difficulty ambulating. He does admit to rightknee pain. He has significant underlying knee degenerative changes. He is planning for admission to inpatient rehab. [facility] Medical History Patella fracture right.12/20/23 Hyperlipidemia Emphysema lung Arthritis Macular degeneration Spinal stenosis Ulcer of right lower leg history of Warfarin anticoagulation Gout Prostate cancer Bladder cancer Afib Surgical History History of joint replacement bilateral hips History of phacoemulsification of cataract of both eyes with intraocular lens implantation History of cystoscopy History of cardiac catheterization History of heart surgery aortic valve replaced S/P left rotator cuff repair History of prostatectomy History of bladder surgery History of hip surgery left hip replaced Family History Father CAD (coronary artery disease) Mother CAD (coronary artery disease) Brother Bipolar 1 disorder COPD (chronic obstructive pulmonary disease) Grandparent Cancer Grandparent Diabetes Daughter Bipolar 1 disorder Brother Legacy FamHx Relation: Brother(s) COPD (chronic obstructive pulmonary disease) Legacy FamHx Relation: Brother(s) Father 37 yrs Heart disease Mother Heart disease 67 yrs Sibling Cancer Legacy FamHx Problem: Diagnosed with Cancer Social History Smoking Status: Former smoker Tobacco Type: cigarettes Substance Use Type: None Substance Abuse Comment: one beer daily Allergies & Medications Medications and Allergies Allergies amoxicillin Allergy (Severe, Verified 12/21/23 20:12) Swelling of Lip/Tongue/Throat adhesive Allergy (Unknown, Verified 12/21/23 20:12) Rash bacitracin [From Neosporin (hoh-lgz-bfxdc)] Allergy (Unknown, Verified 12/21/23 20:12) itch and rash, rash neomycin [From Neosporin (hnm-oym-obwfz)] Allergy (Unknown, Verified 12/21/23 20:12) itch and rash, rash Penicillins Allergy (Unknown, Verified 12/21/23 20:12) Anaphylaxis polymyxin B [From Neosporin (oey-fqk-ehxes)] Allergy (Unknown, Verified 12/21/2419:12) Rash and itch, rash Home Medications pantoprazole 40 mg tablet,delayed release 40 mg PO QHS 01/19/19 [History Confirmed 12/21/23] warfarin 5 mg tablet 7.5 mg PO DAILY 02/05/20 [History Confirmed 12/21/23] tramadol 50 mg tablet 50 mg PO Q6H PRN Pain 10/01/21 [History Confirmed 12/21/23] aspirin 81 mg tablet,delayed release (Adult Aspirin Regimen) 81 mg PO DAILY 12/20/23 [History Confirmed 12/21/23] atorvastatin 80 mg tablet 40 mg PO DAILY 12/20/23 [History Confirmed 12/21/23] magnesium oxide 400 mg PO DAILY #30 tabs 12/20/23 [Rx Confirmed 12/21/23] oxycodone 5 mg tablet 5 mg PO Q8HR PRN Severe Pain 3 days #10 tabs 12/20/23 [Rx Confirmed 12/21/23] Exam Physical Exam Vital Signs: Temp Pulse Resp BP Pulse Ox O2 Del Method 97.9 F 74 16 121/72 95 Room Air 12/22/23 07:45 12/22/23 07:45 12/22/23 07:45 12/22/23 07:45 12/22/23 07:45 12/22/23 08:00 Narrative: Patient seen evaluated on nursing floor. He is resting supine position. Anne wrap and knee immobilizer to right lower extremity. He is alert and oriented. Pleasant conversation. Right knee is evaluated. Knee immobilizer and Anne wrap removed. He does have an abrasion to the anterior aspect of the knee with Umesh placed. He has a large effusion and painful palpation in the suprapatellar pouch as well as over the patella. His thigh is soft and compressible with minimal pain and his calf is soft compressible no pain. He is able to move the toes and ankle up now without difficulty. Foot is warm well-perfused Results - Orthopedics Lab Results 12/22/23 09:52 12/22/23 09:52 Labs: Laboratory Results - Last 48 hrs. 12/22/23 09:52: Corrected WBC 9.0, Uncorrected WBC Count 9.0, RBC 4.63, Hgb 13.6, Hct 41.3, MCV 89.2, MCH 29.3, MCHC 32.9, RDW 15.5 H, Plt Count 145 L, MPV 8.4, Neut % (Auto) 69.1, Lymph % (Auto) 15.0, [place] % (Auto) 14.6, Eos % (Auto) 0.8, Baso % (Auto) 0.5, Nucleat RBC Rel Count 0.1, Neut # (Auto) 6.2, Lymph # (Auto) 1.4, [place] # (Auto) 1.3 H, Eos # (Auto) 0.1, Baso # (Auto) 0.0, PHA Creatinine Clear 58.48, Sodium 137, Potassium 3.8, Chloride 102, Carbon Dioxide 26.6, Anion Gap 12.2, BUN 25, Creatinine 0.89, Est GFR (CKD-EPI) > 60.0, [id number] H, Calcium 9.1 12/22/23 06:56: PT 16.3 H, INR 1.4 H & H 12/22/23 Range/Units 09:52 Hgb 13.6 (13.0-17.0) g/dL Hct 41.3 (38.8-50.0) % Coagulation 12/22/23 Range/Units 06:56 INR 1.4 All other labs are normal. Imaging & Diagnostic Results Imaging/Diagnostics: X-rays and CT scan of the right knee are reviewed. Advanced degenerative changes are seen. He has a comminuted patella fracture which is nondisplaced. Effusion is noted. Alignment is benign. Repeat x-rays today are also reviewed which show no change in position alignmentof the patella fracture Assessment/Plan (1) Right patella fracture: Code(s): S82.001A - Unspecified fracture of right patella, initial encounter for closed fracture Plan Fani presents with comminuted right patella fracture. At this juncture we have discussed the findings and diagnosis as well as personally reviewed appropriate imaging and performed interpretation of related testing and examination with thepatient in office today. Prior medical notes from hospital service and history have been reviewed. At this time I would recommend nonoperative treatment. Diddiscuss aspiration since he has a large hemarthrosis due to anticoagulation use and he agrees to move forward with this. Risks and benefit of injection were discussed and verbal consent was obtained. Under sterile technique the patient's right knee was aspirated via the superolateral portal revealing 75 cc of hemarthrosis and then injected with 10 cc of Marcaine for pain control, this was tolerated well without any adverse reaction. Band-Aid was applied to the area. Anne wrap was reapplied for compression to prevent repeat effusion. Patient can be weightbearing as tolerated while knee is in knee immobilizer. Ifhe does not tolerate knee immobilizer that he can get a hinged knee brace and itshould be locked in extension at all times. Anytime he is up he should be in his brace. While at rest in the supine position the brace can be removed for rest. He should not be mobilized without the brace on. He will need PT/OT for static strengthening of the knee. Did demonstrate and have the patient perform quadriceps activation which he understands and tolerated. We will plan to startgentle range of motion in the next 2 to 3 weeks. We will plan for follow-up for follow- up x-rays in 2 to 3 weeks before starting motion. Okay for discharge from inpatient rehab The patient has been involved in our cooperative treatment plan and agrees to move forward with treatment at this time. Documented By: Roly Morales DO 12/22/23 1054 Signed By: <Electronically signed by Roly Morales DO> 12/22/23 [address] [facility] Work Phone: 1(419) 318-119407-09-2024 Progress note Author Ashley Merritt [facility] December 22, 2023 9:37am Note Date/Time December 22, 2023 9:37a m [facility] [address] [place] [address] Hospitalist Progress Note Signed Patient: Fani Chua MR#: [id number] : 1935 Acct:[id number] Age/Sex: 88 / M Adm Date: 4 Loc: 4N Room: 3C6000-2 Type: ADM INOo Attending Dr: Ashley Merritt MD Copies to: ~ Date of Service: 12/22/2023 Subjective Subjective Narrative: Patient has been seen and examined today. Pain is slightly better, per patient he had quite severe pain in the right lower extremity yesterday, barely could walk, he lives at home with his , unable to perform daily activities Otherwise denies any chest pain shortness of breath any fevers any abdominal pain any nausea any diarrhea Physical exam: General -awake, alert, oriented ?3, not in acute distress Cardiovascular -S1 with S2, no murmurs, no rubs, no gallops Pulmonary - clear to auscultation bilaterally Gastrointestinal - abdomen is soft, nondistended, nontender, bowel sounds positive, there is no rigidity, no rebound Extremities -no edema, right knee incompression dressing Neurological -no focal neurological dysfunction noted, able to move all extremities Exam Physical Exam Vital Signs: Temp Pulse Resp BP Pulse Ox O2 Del Method 36.6 C 74 16 121/72 95 Room Air 12/22/23 07:45 12/22/23 07:45 12/22/23 07:45 12/22/23 07:45 12/22/23 07:45 12/22/23 07:45 Meds Allergies and Active Meds Allergies amoxicillin Allergy (Severe, Verified 12/21/23 20:12) Swelling of Lip/Tongue/Throat adhesive Allergy (Unknown, Verified 12/21/23 20:12) Rash bacitracin [From Neosporin (lwa-gzx-sbvxn)] Allergy (Unknown, Verified 12/21/23 20:12) itch and rash, rash neomycin [From Neosporin (uei-lqi-kebib)] Allergy (Unknown, Verified 12/21/23 20:12) itch and rash, rash Penicillins Allergy (Unknown, Verified 12/21/23 20:12) Anaphylaxis polymyxin B [From Neosporin (muq-jpt-rrhbs)] Allergy (Unknown, Verified 12/21/2419:12) Rash and itch, rash Active Meds: Active Medications Generic Name Dose Route Start Last Admin Trade Name Freq PRN Reason Stop Dose Admin Atorvastatin Calcium 40 mg 12/22/23 22:00 Atorvastatin 40 Mg Tablet PO 12/21/24 21:59 QHS WILLA Hydromorphone HCl 0.25 mg 12/22/23 09:34 Hydromorphone 1 Mg/Ml Syringe IV-PUSH Q4H PRN pain Oxycodone HCl 5 mg 12/21/23 20:52 Oxycodone Ir 5 Mg Tablet PO Q8HR PRN Severe Pain Pantoprazole Sodium 40 mg 12/21/23 22:00 12/22/23 00:01 Pantoprazole 40 Mg Tablet. PO 12/20/24 21:59 Not Given QHS WILLA Sodium Chloride 10 ml 12/22/23 07:30 Sodium Chloride 0.9 % 10 Ml Syringe IV-PUSH 12/21/24 07:29 PRN PRN Flush Warfarin Sodium 1 each 12/22/23 06:11 Warfarin - Pharmacy Dosing MISCELLANE 12/21/24 06:10 ONCE PRN ZZ.Pharmacy Consult Protocol A&P - Hospitalist Assessment/Plan (1) Right patella fracture: (2) Right knee injury: (3) Fall from slip, trip, or stumble: (4) Contusion of rib on right side: (5) Traumatic hematoma of forehead: Plan Recent history of fall complicated by right patella fracture, status post recentdischarge with pain management, however failed outpatient care, complaining of severe pain, unable to function at home Patient is on Coumadin therapy due to atrial fibrillation, with subtherapeutic INR Previous x-ray showed effusions, will repeat x-ray Consult Ortho Continue with pain medication, add Dilaudid IV Consulted PT OT Documented By: Ashley Merritt MD 12/22/23934 Signed By: <Electronically signed by Ashley Merritt MD> 12/22/23936 [facility] Work Phone: 1(833) 123-573107-09-2024 History and physical note Author Hilario Skelton [facility] December 22, 2023 3:27am Note Date/Time December 21, 2023 11:52 pm [facility] [address] [place] [address] Hospitalist H&P Signed Patient: Fani Chua MR#: [id number] : 1935 Acct:[id number] Age/Sex: 88 / M Adm Date: 4 Loc: 4N Room: 7N6514-7 Type: ADM INOo Attending Dr: Hilario Skelton MD Copies to: MD Kaitlynn Lorenzana, BENJI Anderson MD~ HPI DATE OF EXAMINATION: 12/21/23 CHIEF COMPLAINT: Right knee pain HISTORY OF PRESENT ILLNESS: Attending note: I saw the patient personally on the day of encounter. I reviewed the relevant history, and performed the orellana elements of the physical examination. I reviewedthe relevant laboratory workup, radiological studies and the current treatment plan. I formulated the plan of care and confirmed it with the resident/student/PTA. Patient is an 88-year-old male, who was discharged yesterday from the hospital after being evaluated for mechanical fall, which demonstrated a comminuted rightpatellar fracture and the large knee effusion. Conservative management was recommended by orthopedic surgery and inpatient rehab was also advised. Patientdeclined that, and decided to go home. Patient reports that the pain is too severe, has not been able to do anything since he got home. He states that the swelling has gone down but the pain is increased. Right knee is currently wrapped in Anne wrap, left knee has gauze. Hedenies fever, chills, chest pain, shortness of breath. Past medical history Chronic A-fib on warfarin Aortic stenosis post-TAVR Cerebrovascular disease history of stroke and TIA Dyslipidemia Gout Prostate cancer Bladder cancer Macular degeneration COPD Review of Systems Review of Systems Review of systems: A 10 point review of systems was obtained, negative unless noted in the HPI or below. [facility] Medical History Patella fracture right.12/20/23 Hyperlipidemia Emphysema lung Arthritis Macular degeneration Spinal stenosis Ulcer of right lower leg history of Warfarin anticoagulation Gout Prostate cancer Bladder cancer Afib Surgical History History of joint replacement bilateral hips History of phacoemulsification of cataract of both eyes with intraocular lens implantation History of cystoscopy History of cardiac catheterization History of heart surgery aortic valve replaced S/P left rotator cuff repair History of prostatectomy History of bladder surgery History of hip surgery left hip replaced Family History Father CAD (coronary artery disease) Mother CAD (coronary artery disease) Brother Bipolar 1 disorder COPD (chronic obstructive pulmonary disease) Grandparent Cancer Grandparent Diabetes Daughter Bipolar 1 disorder Brother Legacy FamHx Relation: Brother(s) COPD (chronic obstructive pulmonary disease) Legacy FamHx Relation: Brother(s) Father 37 yrs Heart disease Mother Heart disease 67 yrs Sibling Cancer Legacy FamHx Problem: Diagnosed with Cancer Social History Smoking Status: Former smoker Tobacco Type: cigarettes Substance Use Type: None Substance Abuse Comment: one beer daily Meds Medications and Allergies Allergies amoxicillin Allergy (Severe, Verified 12/21/23 20:12) Swelling of Lip/Tongue/Throat adhesive Allergy (Unknown, Verified 12/21/23 20:12) Rash bacitracin [From Neosporin (zoi-als-fbcmu)] Allergy (Unknown, Verified 12/21/23 20:12) itch and rash, rash neomycin [From Neosporin (dtc-gft-yoxel)] Allergy (Unknown, Verified 12/21/23 20:12) itch and rash, rash Penicillins Allergy (Unknown, Verified 12/21/23 20:12) Anaphylaxis polymyxin B [From Neosporin (wpv-hng-eqwup)] Allergy (Unknown, Verified 12/21/2419:12) Rash and itch, rash Home Medications pantoprazole 40 mg tablet,delayed release 40 mg PO QHS 01/19/19 [History Confirmed 12/21/23] warfarin 5 mg tablet 7.5 mg PO DAILY 02/05/20 [History Confirmed 12/21/23] tramadol 50 mg tablet 50 mg PO Q6H PRN Pain 10/01/21 [History Confirmed 12/21/23] aspirin 81 mg tablet,delayed release (Adult Aspirin Regimen) 81 mg PO DAILY 12/20/23 [History Confirmed 12/21/23] atorvastatin 80 mg tablet 40 mg PO DAILY 12/20/23 [History Confirmed 12/21/23] magnesium oxide 400 mg PO DAILY #30 tabs 12/20/23 [Rx Confirmed 12/21/23] oxycodone 5 mg tablet 5 mg PO Q8HR PRN Severe Pain 3 days #10 tabs 12/20/23 [Rx Confirmed 12/21/23] Exam Physical Exam Vital Signs: Temp Pulse Resp BP Pulse Ox O2 Del Method 98.5 F 68 18 136/83 94 L Room Air 12/21/23 23:19 12/21/23 23:19 12/21/23 22:52 12/21/23 23:19 12/21/23 23:19 12/21/23 23:26 Narrative: CONST- Appears well -developed and well nourished. HEAD - Normocephalic and atraumatic EENT-Sclera nonicteric, conjunctive are non-erythemic, moist oral mucosa, pharynx clear NECK-Supple, no cervical lymphadenopathy CARDIAC-normal rate, regular rhythm, S1 & S2. Murmur PULM-diminished without wheeze or rhonchi, RA, no accessory muscle use or cough noted ABD - Soft. Bowel sounds are normal. No distention. No tenderness EXTREM-no edema BLE calves, right knee swelling, tenderness and pain to RLE, right knee warm to touch, Anne wrap in place SKIN- W/D good turgor MS- MAEX4 spontaneously, weakness and pain to RLE NEURO- A&Ox3 speech clear and tongue midline, equal facial symmetry, no focal motor deficits PSYCH-Mood, affect, and behavior appropriate Assessment & Plan Assessment/Plan (1) Right patella fracture: (2) Right knee injury: (3) Fall from slip, trip, or stumble: (4) Contusion of rib on right side: (5) Traumatic hematoma of forehead: Plan Right patellar fracture Right knee injury?large effusion? Patient reports decreased swelling Contusion of rib on right side Mechanical fall from ground height?patient reports tripped and driveway Hematoma to left face?healing ? Consult PT/OT, Case management ? Tramadol, Oxy as needed for pain ? Ice as needed Chronic conditions?resume home meds as appropriate Chronic A-fib?rate controlled, continue warfarin. Hold aspirin due to the hemarthrosis. The last coronary event was more than 6 months ago. No stent. HLD?atorvastatin GERD?pantoprazole DVT PPx-SCDs Diet order-regular CODE STATUS-full code IP vs OBS Justification Based on differential dx, clinical care plan, and risk of adverse events, if untreated, in my clinical judgement this patient requires an acute care setting as: OBSERVATION because of an expectation of an under 2 midnight stay. Estimated length of stay (# of days): 1 Documented By: Kaitlynn Lewis APRN 12/21/23 6631 Signed By: <Electronically signed by BENJI Lewis> 12/22/23 0313 <Electronically signed by Hilario Skelton MD> 12/22/23 0327 [facility] Work Phone: 1(478) 224-723707-07-2024 History and physical note Author Isai May [facility] December 20, 2023 7:23am Note Date/Time December 20, 2023 4:54a m [facility] [address] [place] [address] Hospitalist H&P Signed Patient: Fani Chua MR#: [id number] : 1935 Acct:[id number] Age/Sex: 88 / M Adm Date: 4 Loc: Room: [address] [place] [address] Type: ADM INOo Attending Dr: Betty Buchanan MD Copies to: MD Isai Owen DO Robert L Hill, MD~ HPI DATE OF EXAMINATION: 12/20/23 CHIEF COMPLAINT: Fall HISTORY OF PRESENT ILLNESS: This patient is a very pleasant 88-year-old male who presented to the emergency department this evening following a mechanical fall with subsequent polytrauma. He had no preceding symptoms leading to this fall and states he caught his foot on a step that he did not see. He has some suprapatellar swelling more so on the right side and superficial lacerations/excoriations of his bilateral knees. Large hematoma raised on the left forehead as well. His presenting vital signs are all stable with no evidence of respiratory or hemodynamic distress. CBC shows some mild anemia H&H 12.8/38.4%, platelets 156, white blood cell 7.1 with notable segmented neutrophils elevated of 84. He has no fever or infectious symptoms. Chemistries are benign with normal kidney and liver function. Magnesium slightly low 1.7 urinalysis is benign as well and noninfectious. His extensive radiographic imaging for trauma included CT head and C-spine as well as chest abdomen and pelvis. X-ray of the right knee does reveal a seemingly nondisplaced hairline fracture of the right patella. No other acute hemorrhages or fractures are noted per report with formal radiology remote reading service reads still pending. With such significant polytrauma to multiple areas he was admitted for safety evaluation, pain control and orthopedic surgery consultation. Physical Examination: GENERAL APPEARANCE: Alert, up in bed AAOx3 HEENT: Large left forehead hematoma CARDIAC: Normal S1 and S2. No S3, S4 or murmurs. LUNGS: Clear to auscultation anteriorly ABDOMEN: Positive bowel sounds. Soft, nontender. MUSCULOSKELETAL: Suprapatellar swelling of the right knee with superficial lacerations bilateral knees NEUROLOGICAL: No focal deficits PSYCHIATRIC: Appropriate mood and affect Assessment and plan: 1. Right-sided nondisplaced patellar fracture 2. Polytrauma 3. Hematoma of the left forehead 4. Chronic anticoagulation 5. Chronic atrial fibrillation 6. History of stroke/TIA 7. Chronic aspirin therapy 8. Subtherapeutic INR 9. Hypomagnesemia Patient is alert and oriented x 3 and has no underlying presyncopal symptoms or other medical issues that seem to have precipitated this fall. Notably he is onboth Coumadin and aspirin therapy for atrial fibrillation and previous stroke. I verified that he is taking both of these and likely these can both be continued presuming there is no occult hematoma or bleeds as thus far radiology reads do not suggest this. Unfortunately overnight formal radiology reads are not back yet. INR subtherapeutic. He can likely resume these if his scalp hematoma remains stable and no neurologic findings develop to suggest any intracerebral bleed. A.m. doses of warfarin and aspirin thus on hold for the moment. Monitor for any hemodynamic instability or mental status changes. Replete magnesium. We will consult PT/OT as well as orthopedic surgery regarding his patellar injury. Knee CT obtained later this morning does confirm transverse and obliquefractures of the patella along with joint effusion. Symptomatic management for now. [facility] Medical History Hyperlipidemia Emphysema lung Arthritis Macular degeneration Spinal stenosis Ulcer of right lower leg history of Warfarin anticoagulation Gout Prostate cancer Bladder cancer Afib Surgical History History of joint replacement bilateral hips History of phacoemulsification of cataract of both eyes with intraocular lens implantation History of cystoscopy History of cardiac catheterization History of heart surgery aortic valve replaced S/P left rotator cuff repair History of prostatectomy History of bladder surgery History of hip surgery left hip replaced Family History Father CAD (coronary artery disease) Mother CAD (coronary artery disease) Brother Bipolar 1 disorder COPD (chronic obstructive pulmonary disease) Grandparent Cancer Grandparent Diabetes Daughter Bipolar 1 disorder Brother [employer] Relation: Brother(s) COPD (chronic obstructive pulmonary disease) [employer] Relation: Brother(s) Father 37 yrs Heart disease Mother Heart disease 67 yrs Sibling Cancer [facility] Problem: Diagnosed with Cancer Social History Smoking Status: Never smoker Tobacco Type: cigarettes Substance Use Type: Alcohol Substance Abuse Comment: drinks a beer nightly Meds Medications and Allergies Allergies amoxicillin Allergy (Severe, Verified 12/20/23 00:50) Swelling of Lip/Tongue/Throat adhesive Allergy (Unknown, Verified 12/20/23 00:50) Rash bacitracin [From Neosporin ([id number])] Allergy (Unknown, Verified 12/20/23 00:50) itch and rash, rash neomycin [From Neosporin ([id number])] Allergy (Unknown, Verified 12/20/23 00:50) itch and rash, rash Penicillins Allergy (Unknown, Verified 12/20/23 00:50) Anaphylaxis polymyxin B [From Neosporin ([id number])] Allergy (Unknown, Verified 12/20/2399:50) Rash and itch, rash Home Medications pantoprazole 40 mg tablet,delayed release 40 mg PO QHS 01/19/19 [History Confirmed 12/20/23] warfarin 5 mg tablet 7.5 mg PO DAILY 02/05/20 [History Confirmed 12/20/23] tramadol 50 mg tablet 50 mg PO Q6H PRN Pain 10/01/21 [History Confirmed 12/20/23] aspirin 81 mg tablet,delayed release (Adult Aspirin Regimen) 81 mg PO DAILY 12/20/23 [History Confirmed 12/20/23] atorvastatin 80 mg tablet 40 mg PO DAILY 12/20/23 [History Confirmed 12/20/23] Exam Physical Exam Vital Signs: Temp Pulse Resp BP Pulse Ox O2 Del Method 97.9 F 70 20 124/84 97 Room Air 12/20/23 00:46 12/20/23 04:30 12/20/23 04:30 12/20/23 04:30 12/20/23 04:30 12/20/23 04:30 Results - Hospitalist H&P Lab Results Labs: Laboratory Last Values Corrected WBC 7.1 X10E3/uL (4.1-10.5) 12/20/23 02:25 Uncorrected WBC Count 7.1 x10E3/uL (4.1-10.5) 12/20/23 02:25 RBC 4.29 X10E6/uL (3.90-5.60) 12/20/23 02:25 Hgb 12.8 g/dL (13.0-17.0) L 12/20/23 02:25 Hct 38.4 % (38.8-50.0) L 12/20/23 02:25 MCV 89.3 fl (83.5-101) 12/20/23 02:25 MCH 29.8 pg (27.5-35.2) 12/20/23 02:25 MCHC 33.4 g/dL (32.5-35.6) 12/20/23 02:25 RDW 15.6 % (12.0-14.8) H 12/20/23 02:25 Plt Count 156 x10E3/uL (150-450) 12/20/23 02:25 MPV 8.1 fl (6.6-10.1) 12/20/23 02:25 Neut % (Auto) N/A 12/20/23 02:25 Lymph % (Auto) N/A 12/20/23 02:25 [place] % (Auto) N/A 12/20/23 02:25 Eos % (Auto) N/A 12/20/23 02:25 Baso % (Auto) N/A 12/20/23 02:25 Nucleat RBC Rel Count N/A 12/20/23 02:25 Neut # (Auto) N/A 12/20/23 02:25 Lymph # (Auto) N/A 12/20/23 02:25 [place] # (Auto) N/A 12/20/23 02:25 Eos # (Auto) N/A 12/20/23 02:25 Baso # (Auto) N/A 12/20/23 02:25 Lymphocytes % 8 % (18-42) L 12/20/23 02:25 Monocytes % 7 % (2-11) 12/20/23 02:25 Eosinophils % 1 % (1-3) 12/20/23 02:25 Myelocytes % 1 % (0-0) H 12/20/23 02:25 Segmented Neutrophils 84 % (50-70) H 12/20/23 02:25 Monocyte Dist Width 17.52 % (0.00-20.00) 12/20/23 02:25 Platelet Estimate Normal (Normal) 12/20/23 02:25 Plt Morphology Comment Normal (Normal) 12/20/23 02:25 RBC Morphology N/A 12/20/23 02:25 Polychromasia Slight 12/20/23 02:25 Poikilocytosis Slight 12/20/23 02:25 Anisocytosis Slight 12/20/23 02:25 Ovalocytes Slight 12/20/23 02:25 Crenated Cell Slight 12/20/23 02:25 PT 20.7 Seconds (9.0-12.9) H 12/20/23 02:25 INR 1.8 12/20/23 02:25 APTT 36.5 Seconds (25.1-36.5) 12/20/23 02:25 PHA Creatinine Clear 51.02 12/20/23 02:25 Sodium 138 mmol/L (136-145) 12/20/23 02:25 Potassium 4.4 mmol/L (3.5-5.1) 12/20/23 02:25 Chloride 106 mmol/L (98-107) 12/20/23 02:25 Carbon Dioxide 27.0 mmol/L (21.0-31.0) 12/20/23 02:25 Anion Gap 9.4 mEq/L (6.0-15.0) 12/20/23 02:25 BUN 31 mg/dL (7-25) H 12/20/23 02:25 Creatinine 1.02 mg/dL (0.70-1.30) 12/20/23 02:25 Est GFR (CKD-EPI) > 60.0 mL/Min 12/20/23 02:25 Glucose 112 mg/dL (70-100) H 12/20/23 02:25 Calcium 9.8 mg/dL (8.6-10.3) 12/20/23 02:25 Total Bilirubin 0.9 mg/dl (0.3-1.0) 12/20/23 02:25 AST 38 U/L (13-39) 12/20/23 02:25 ALT 41 U/L (7-52) 12/20/23 02:25 Alkaline Phosphatase 87 U/L (34-104) 12/20/23 02:25 Total Protein 7.3 gm/dL (6.4-8.9) 12/20/23 02:25 Albumin 4.2 gm/dL (3.5-5.7) 12/20/23 02:25 Globulin 3.1 gm/dL 12/20/23 02:25 Albumin/Globulin Ratio 1.4 12/20/23 02:25 Urine Color Light-yellow (Yellow) 12/20/23 02:55 Urine Appearance Clear (Clear) 12/20/23 02:55 Urine pH 5.0 (5.0-9.0) 12/20/23 02:55 Ur Specific [place] 1.019 (1.001-1.030) 12/20/23 02:55 Urine Protein Trace mg/dL (Negative) H 12/20/23 02:55 Urine Glucose (UA) Normal mg/dL (Normal) 12/20/23 02:55 Urine Ketones Negative (Negative) 12/20/23 02:55 Urine Occult Blood Negative (Negative) 12/20/23 02:55 Urine Nitrite Negative (Negative) 12/20/23 02:55 Urine Bilirubin Negative (Negative) 12/20/23 02:55 Urine Urobilinogen Normal mg/dL (Normal) 12/20/23 02:55 Ur Leukocyte Esterase Negative (Negative) 12/20/23 02:55 Urine RBC 1-2 /HPF (0-4) 12/20/23 02:55 Urine WBC 1-2 /HPF (0-4) 12/20/23 02:55 Ur Squamous Epith Cells N/A 12/20/23 02:55 Urine Bacteria None seen /HPF (None Seen) 12/20/23 02:55 Hyaline Casts None /LPF (0-8) 12/20/23 02:55 Assessment & Plan Assessment/Plan (1) Fall from slip, trip, or stumble: Plan As above IP vs OBS Justification Based on differential dx, clinical care plan, and risk of adverse events, if untreated, in my clinical judgement this patient requires an acute care setting as: OBSERVATION because of an expectation of an under 2 midnight stay. Estimated length of stay (# of days): 1 Documented By: Isai May DO 12/20/23 52 Signed By: <Electronically signed by Isai May DO> 12/20/23722 [facility] Work Phone: 1(575) 931-756604-16-2024 History of Present illness Narrative* Bonita Kingsley MD - 09/29/2023 9:20 AM EDT Subjective Fani Chua is a 88 y.o. male Chief Complaint Follow-up HPI Patient is in the office for follow-up for bioprosthetic TAVR for aortic stenosis among other problems noted below. His last echocardiogram February 2023 was shared with him. He was found to have mildly reduced EF at 45% but with normal valve function. He was also found to have moderate mitral andtricuspid regurgitation with moderate pulmonary hypertension. He was in [place] couple weeksback and had a fall after he tripped on the pavement and landed on the left side, fortunately therewas no broken bones after checking himself to the emergency department. Cardiac reece he has no complaint to report, he is in chronic atrial fibrillation and has been on Coumadin therapy with no bleeding complications. He had a visit with his PCP last week which I reviewed and discussed part of it with him. His main concern right now is pain management for his back issues. His examination was unremarkable except for irregular rhythm. Assessment/recommendations: 1-history of severe aortic stenosis status post TAVR 2019 at [facility]. Follow-up echocardiogram February 2023 revealed normal valve function.. Currently asymptomatic from that standpoint. 2-moderate pulmonary hypertension, echocardiogram February 2023 RVSP 50 mmHg, currently no dyspneaand no edema. Will monitor, I explained to the patient the physiology of pulmonary hypertension andpotential symptoms. 3-permanent atrial fibrillation on chronic Coumadin therapy with no bleeding complications, heart rate is under control. 4-at risk for fall with major injuries recently. Education in that regard provided. 5-high risk medication with anticoagulation with no complications so far. 6-moderate mitral regurgitation based on echocardiogram February 2023. Follow- up echocardiogram isscheduled this february. 7-mild LV systolic dysfunction ejection fraction 45%. If repeat echocardiogram this february continue to demonstrate LV systolic dysfunction we will add ANNE inhibitors and a small dose of beta-blockers Review of Systems Constitutional: Positive for malaise/fatigue. Neurological: Positive for light-headedness. All other systems reviewed and are negative. Vitals: 09/29/23 0912 BP: 128/78 BP Location: Left arm Patient Position: Sitting Pulse: 64 Weight: 75.8 kg (167 lb) Height: 1.753 m (5' 9 ) Objective Physical Exam Constitutional: Appearance: Normal appearance. HENT: Nose: Nose normal. Neck: Vascular: No carotid bruit. Cardiovascular: Rate and Rhythm: Normal rate. Rhythm irregularly irregular. Pulses: Normal pulses. Heart sounds: Murmur heard. Systolic murmur is present with a grade of 2/6. Pulmonary: Effort: Pulmonary effort is normal. Comments: Crackles seth Abdominal: General: Bowel sounds are normal. Palpations: Abdomen is soft. Musculoskeletal: General: Normal range of motion. Cervical back: Normal range of motion. Right lower leg: No edema. Left lower leg: No edema. Skin: General: Skin is warm and dry. Neurological: General: No focal deficit present. Mental Status: He is alert. Psychiatric: Mood and Affect: Mood normal. Behavior: Behavior normal. Thought Content: Thought content normal. Judgment: Judgment normal. Allergies Penicillins, Neomycin, Bacitracin, and Polymyxin b Current Medications Current Outpatient Medications: aspirin 81 mg EC tablet, Take 1 tablet (81 mg) by mouth once daily., Disp: , Rfl: atorvastatin (Lipitor) 40 mg tablet, Take 1 tablet (40 mg) by mouth once daily., Disp: , Rfl: pantoprazole (ProtoNix) 40 mg EC tablet, Take 1 tablet (40 mg) by mouth., Disp: , Rfl: traMADol (Ultram) 50 mg tablet, Take 1-2 tablets (50-100 mg) by mouth every 6 hours if needed., Disp: , Rfl: warfarin (Coumadin) 5 mg tablet, Take 2 tablets (10 mg) by mouth. Take as directed by [facility], Disp: , Rfl: Assessment/Plan 1. Nonrheumatic aortic valve stenosis 2. Presence of prosthetic heart valve 3. Status post transcatheter aortic valve replacement 4. Permanent atrial fibrillation (Multi) 5. Coronary artery disease, unspecified vessel or lesion type, unspecified whether angina present, unspecified whether [place] or transplanted heart 6. Congestive heart failure, NYHA class 2, unspecified congestive heart failure type (Multi) 7. Pulmonary hypertension (Multi) 8. Hypertension, unspecified type 9. Pure hypercholesterolemia 10. PVD (peripheral vascular disease) ([facility]) 11. Type 2 diabetes mellitus without complication, unspecified whether fci insulin use (Multi) 12. Stage 2 chronic kidney disease 13. Former smoker Scribe Attestation By signing my name below, I, Felipa Pascal LPN, Scribe attest that this documentation has been prepared under the direction and in the presence of Bonita Kingsley MD. Provider Attestation - Scribe documentation All medical record entries made by the Scribe were at my direction and personally dictated by me. Ihave reviewed the chart and agree that the record accurately reflects my personal performance of the history, physical exam, discussion and plan. documented in this [facility] Work Phone: 1(477) 262-369004-16-2024 Instructions* Patient Instructions* Felipa Sena LPN - 09/29/2023 9:20 AM EDT Please bring all medicines, vitamins, and herbal supplements with you when you come to the office. Prescriptions will not be filled unless you are compliant with your follow up appointments or have a follow up appointment scheduled as per instruction of your physician. Refills should be requested at the time of your visit. Fall Prevention Education Given Follow up 6 months Sept Echo documented in this [facility] Work Phone: [phone]) 145-145412-23-2023 Consult note Author Tyrese Gutierrez [facility] June 06, 2023 1:21pm Note Date/Time June 06, 2023 1:10pm [facility] [address] [place] [address] Cardiology Consult Note Signed Patient: Fani Chua MR#: [id number] : 1935 Acct:[id number] Age/Sex: 88 / M Adm Date: 3 Loc: 4N Room: [address] [place] [address] Type: ADM IN Attending Dr: Isai May DO Copies to: DO María Harmon MD Stephen M Tann, MD~ Cardiology HPI History of Present Illness Consult Date: 06/06/23 Reason for Consult: Abnormal ECG. Abnormal troponin HPI: Mr. Chua is a 88 year old male with a known history of aortic valve disease status post TAVR and a history of chronic atrial fibrillation on chronic warfarin anticoagulation who was admitted to the inpatient hospital medicine service last night after about 24 hours worth of visual aberrancies concerning for a TIA like syndrome. Head CT showed no acute intracranial abnormalities. ECG showed atrial fibrillation with a chronic bundle branch block and occasionalPVCs. No acute ischemic changes were noted. Initial troponin was mildly elevated at 79. Serial troponins have remained essentially flat with a peak at 98 and troponin this morning down to 55. Patient denies any chest pain chest pressure or other anginal symptoms. Telemetry monitoring has shown atrial fibrillation with bundle branch block and controlled rates. There has been occasional ventricular ectopy but no evidence of NSVT or sustained ventricular arrhythmias. Echocardiogram has been evaluated which shows a TAVR prosthesis insitu. There is no evidence of prosthetic valvular dysfunction or abnormal transvalvular gradients. Ejection fraction is estimated at 40 to 45% with wall motion abnormality noted in the inferior wall. Given these abnormalities I am now consulted for further cardiac evaluation and management. Review of Systems Review of Systems All other systems reviewed & are negative unless noted below or in HPI [facility] Medical History (Updated 06/06/23 @ 13:20 by Tyrese Gutierrez MD) Afib Arthritis Bladder cancer Emphysema lung Gout Hyperlipidemia Macular degeneration Prostate cancer Spinal stenosis Ulcer of right lower leg history of Warfarin anticoagulation Surgical History History of bladder surgery History of cardiac catheterization History of cystoscopy History of heart surgery aortic valve replaced History of hip surgery left hip replaced History of joint replacement bilateral hips History of phacoemulsification of cataract of both eyes with intraocular lens implantation History of prostatectomy S/P left rotator cuff repair Family History Father CAD (coronary artery disease) Mother CAD (coronary artery disease) Brother Bipolar 1 disorder COPD (chronic obstructive pulmonary disease) Grandparent Cancer Grandparent Diabetes Daughter Bipolar 1 disorder Social History Smoking Status: Former smoker Tobacco Type: cigarettes Substance Use Type: None Substance Abuse Comment: drinks a beer nightly Meds Medications and Allergies Allergies amoxicillin Allergy (Severe, Verified 06/04/23 15:15) Swelling of Lip/Tongue/Throat bacitracin [From Neosporin ([id number])] Allergy (Verified 06/04/23 15:15) itch and rash neomycin [From Neosporin ([id number])] Allergy (Verified 06/04/23 15:15) itch and rash polymyxin B [From Neosporin ([id number])] Allergy (Verified 06/04/23 15:15) Rash and itch Home Medications pantoprazole 40 mg tablet,delayed release 40 mg PO QHS 01/19/19 [History Confirmed 06/04/23] gemfibrozil 600 mg tablet 600 mg PO QHS 01/14/20 [History Confirmed 06/04/23] warfarin 5 mg tablet 10 mg PO 2XW 02/05/20 [History Confirmed 06/04/23] tramadol 50 mg tablet 50 mg PO Q6H PRN Pain 10/01/21 [History Confirmed 06/04/23] atorvastatin 80 mg tablet 80 mg PO DAILY #30 tabs 06/05/23 [Rx] Exam Physical Exam Vital Signs: Temp Pulse Resp BP Pulse Ox O2 Del Method 97.3 F L 65 19 104/67 94 L Room Air 06/06/23 12:00 06/06/23 12:00 06/06/23 12:00 06/06/23 12:00 06/06/23 12:00 06/06/23 12:00 Const General: cooperative, healthy appearing, comfortable and no acute distress Nutritional Appearance: average body habitus Orientation: alert, awake and oriented x3 HEENT Head: normocephalic and atraumatic Eyes Conjunctivae: conjunctivae normal Sclera: sclerae normal Pupils: PERRL and accommodation normal Neck Neck: no lymphadenopathy and supple Neck mass: No Carotids: normal carotid upstroke Lymphatic: no lymphadenopathy noted Chest Chest palpation & inspection: normal inspection of the chest Resp Effort & Inspection: normal respiratory effort, able to speak in complete sentences and symmetric chest movement Cardio Jugular venous pressure: no JVD Palpation: normal PMI Rate: regular rate Rhythm: abnormal rhythm Heart Sounds: S1 normal, S2 normal and murmur Pulses: radial pulses present and femoral pulses present GI Palpation: soft and no hepatosplenomegaly Auscultation: normal bowel sounds Skin General: no rashes or lesions noted Neuro General: patient alert, patient awake, patient oriented x3, moves all extremities and no focal motor deficits Cranial Nerves: CN's II-XII intact bilaterally Cognition: normal cognition Motor: muscle tone normal throughout Sensory Exam: no sensory deficits noted Extrem General: no clubbing, cyanosis or edema Psych Appearance: grossly normal Affect: normal affect Speech and Movement: speech and movement normal Attitude: cooperative Thought Process: normal Thought Content: normal Insight: insight good Judgment: judgment good MISTY Risk Score MISTY Risk Score Predictor Historical: Age > 65 Years Old and 3 or more Risk Factors: FHx,HTN,elevated cholesterol,DM,active smoker Presentation: Increased Cardiac Marker Score Risk Score (0-7): 3 Results Labs 06/05/23 01:59 06/05/23 01:59 Lab results: Cardiac Enzymes 06/05/23 Range/Units 18:39 Total Creatine Kinase 56 (30-223) U/L Intake and Output 06/05/23 06/06/23 06/06/23 23:59 07:59 15:59 Intake Total 720 / 1320 480 / 480 Balance 720 / 1320 480 / 480 Intake: Oral 720 / 1320 480 / 480 Other: # Unmeasured Voids 3 2 Weight 74.5 kg Date of Last Bowel Movement 06/03/23 06/03/23 06/05/23 Patient Weight 06/06/23 23:59 Weight 74.5 kg Lab 06/04/23 06/05/23 06/06/23 15:22 01:59 05:16 PT 33.6 H 29.6 H 25.0 H INR 3.0 2.7 2.2 APTT 48.5 H EKG Interpretations EKG Attestation EKG: I reviewed this ECG and interpreted as documented below: EKG shows: atrial fibrillation Dysrhythmias Ventricular dysrhythmias: ventricular premature complexes Blocks, axis, hypertrophy, ST abn AV and intraventricular conduction: left bundle branch block (fixed/intermittent, complete/incomplete) Repolarization changes or abnormalities: nonspecific abnormality, ST segment, and/or T wave PR, pacemaker, normal Normal tracing: no change compared to previous tracing A&P - Cardiology (1) Atrial fibrillation: Assessment/Problem Details: Chronic. Well rate controlled. On warfarin anticoagulation. This is the source of the irregularity seen on telemetry monitoring. The patient has not shown sinus pauses as he is in chronic atrial fibrillation. There is occasional ventricular ectopy but this would not be considered pathologic or otherwise high risk. No significant change from patient's baseline. Plan: With low resting heart rate do not recommend addition of any medical therapy for A-fib rate control. Recommend maintain warfarin anticoagulation with target INR 2-2.5 Qualifiers: Atrial fibrillation type: chronic Qualified Code(s): I48.2 - Chronic atrial fibrillation Code(s): I48.91 - Unspecified atrial fibrillation (2) Bundle branch block: Assessment/Problem Details: Chronic. This is very likely the source of wall motion abnormality and mild depression and overall left ventricular systolic function .noted on echocardiography. I see no clinical evidence of acute coronary syndrome. Plan: No change in current medical therapy is recommended Code(s): I45.4 - Nonspecific intraventricular block (3) Elevated troponin level not due to acute coronary syndrome: Assessment/Problem Details: Small type II event, likely resulting from recent TIA-like syndrome. This may have had it source on or around the patient's TAVR prosthesis. No evidence of active myocardial ischemia and/or acute coronary syndrome Plan: As long as patient is tolerating such would recommend stay with aspirin 81 mg daily, as well as atorvastatin 80 mg daily Code(s): R79.89 - Other specified abnormal findings of blood chemistry (4) History of transcatheter aortic valve replacement (TAVR): Assessment/Problem Details: TAVR prosthesis appears properly positioned in situ based on echocardiographic review. No evidence of abnormal transvalvular gradients. In the absence of antiplatelet therapy this could have been the source for platelet clumping with resultant TIA. Plan: Provided the patient is having no problems with bleeding would recommend aspirin 81 mg daily and adjustment of warfarin anticoagulation to a lower target INR of 2- 2.5 rather than 2-3. Code(s): Z95.2 - Presence of prosthetic heart valve Plan Patient appears clinically safe and stable for discharge to home today. Recommend follow-up with his primary evp Dr. George within 3 weeks. Thank you very much for this kind consultation and for allowing me to participate in the care of this delightful patient. Documented By: Tyrese Gutierrez MD 06/06/23 1308 Signed By: <Electronically signed by Tyrese Gutierrez MD> 06/06/23 1321 [facility] Work Phone: 1(672) 735-908512-22-2023 Progress note Author Isai aMy [facility] June 05, 2023 6:38pm Note Date/Time June 05, 2023 6:39pm [facility] [address] [place] [address] Hospitalist Progress Note Signed Patient: Fani Chua MR#: [id number] : 1935 Acct:[id number] Age/Sex: 88 / M Adm Date: 3 Loc: 4N Room: [address] [place] [address] Type: ADM IN Attending Dr: Isai May DO Copies to: ~ Date of Service: 06/05/2023 Subjective Subjective Narrative: Patient was seen and examined the bedside this afternoon. Neurologic symptoms have completely resolved. His vitals are fairly stable. He continues to deny any chest pain, palpitations or shortness of breath. His family is now at the bedside to provide some additional history and states he has had some intermittent dyspnea on exertion. He only follows with cardiology yearly. Physical Examination: GENERAL APPEARANCE: Alert, up in bed AAOx3 HEENT: NCAT, MMM NECK: Neck soft w/o masses, no JVD CARDIAC: Normal S1 and S2. No S3, S4 or murmurs. LUNGS: Clear to auscultation bilaterally. no wheeze/rhonchi/rales ABDOMEN: Positive bowel sounds. Soft, nontender. No guarding or signs of an acute abdomen MUSCULOSKELETAL: No joint erythema or tenderness. EXTREMITIES: No clubbing, cyanosis or edema PSYCHIATRIC: Appropriate mood and affect Assessment and plan: 1. Blurred vision 2. Dizziness 3. Abnormal gait 4. Chronic atrial fibrillation 5. Chronic anticoagulation with Coumadin 6. Troponin elevation 7. Spinal stenosis 8. Bladder cancer 9. Macular degeneration 10. BNP elevation 11. New onset reduced ejection fraction 12. Inferior wall motion abnormalities 13. Nonsustained V. tach 14. Bradycardia, pauses I personally saw and examined patient at the bedside today. His initial neurologic complaints have all but completely resolved and he is feeling fairly well. I had planned on discharging the patient for an outpatient MRI however upon further review of his cardiac diagnostics I will have him continued on telemetry and cardiology will be consulted. He had some mild troponin elevationthat has down trended and still remains asymptomatic in this regard. Unfortunately unbeknownst to me the telemetry overnight was fairly abnormal withrelatively high degree of ectopy, intermittent bradycardia, nonsustained V. tachand questionable sinus pauses. His ejection fraction is newly reduced 40 to 45%with new wall motion abnormalities, hypokinesis of the inferior wall. When considering these changes in conjunction with his asymptomatic troponin elevation I do not feel I can get conscious discharge the patient safely withoutseeing cardiology. We will continue to monitor him this evening and place him back on telemetry. Will check electrolytes and replete as needed. Fortunately he did receive 324 aspirin x 1 and 81 mg aspirin this morning x 1 which does provide some protection for ACS. If he is cleared by cardiology he will be discharged tomorrow. Further diagnostics per their recommendations. Exam Physical Exam Vital Signs: Temp Pulse Resp BP Pulse Ox O2 Del Method 98.1 F 66 18 148/80 H 96 Room Air 06/05/23 16:00 06/05/23 16:00 06/05/23 16:00 06/05/23 16:00 06/05/23 16:00 06/05/23 16:00 Objective Lab Results 06/05/23 01:59 06/05/23 01:59 Meds Allergies and Active Meds Allergies amoxicillin Allergy (Severe, Verified 06/04/23 15:15) Swelling of Lip/Tongue/Throat bacitracin [From Neosporin ([id number])] Allergy (Verified 06/04/23 15:15) itch and rash neomycin [From Neosporin ([id number]-nwr-qarvy)] Allergy (Verified 06/04/23 15:15) itch and rash polymyxin B [From Neosporin ([id number]-vpm-duung)] Allergy (Verified 06/04/23 15:15) Rash and itch Active Meds: Active Medications Generic Name Dose Route Start Last Admin Trade Name Freq PRN Reason Stop Dose Admin Aspirin 81 mg 06/05/23 09:00 06/05/23 09:39 Aspirin 81 Mg Tab.Chew PO 06/04/24 08:59 81 mg DAILY WILLA Administration Gemfibrozil 600 mg 06/04/23 22:00 06/04/23 21:07 Gemfibrozil 600 Mg Tablet PO 06/03/24 21:59 600 mg QHS WILLA Administration Pantoprazole Sodium 40 mg 06/04/23 22:00 06/04/23 21:07 Pantoprazole 40 Mg Tablet.Dr PO 06/03/24 21:59 40 mg QHS WILLA Administration Sodium Chloride 0 ml 06/04/23 15:14 06/04/23 15:40 Sodium Chloride 0.9 % 10 Ml Syringe IV-PUSH 06/03/24 15:13 10 ml PRN PRN Administration Flush Tramadol HCl 50 mg 06/04/23 17:34 Tramadol 50 Mg Tablet PO 12/01/23 17:33 Q6H PRN Pain Warfarin Sodium 1 each 06/04/23 19:50 Warfarin - Pharmacy Dosing MISCELLANE 06/03/24 19:49 ONCE PRN ZZ.Pharmacy Consult Protocol A&P - Hospitalist Assessment/Plan (1) Blurred vision: Plan as above Documented By: Isai May DO 06/05/23 18 32 Signed By: <Electronically signed by Isai May DO> 06/05/23 2699 [facility] Work Phone: 1(698) 530-208712-22-2023 Consult note Author Buck Glover [facility] June 05, 2023 3:26pm Note Date/Time June 05, 2023 3:26pm [facility] [address] [place] [address] Neurology Consult Note Signed Patient: Fani Chua MR#: [id number] : 1935 Acct:[id number] Age/Sex: 88 / M Adm Date: 3 Loc: 4N Room: [address] [place] [address] Type: ADM IN Attending Dr: Isai May DO Copies to: DO Isai Doe DO Robert L Hill, MD~ HPI Consult Date: 06/05/23 Contact Lens Assistant: Buck Glover DO [facility] Medical History (Updated 06/04/23 @ 16:47 by Tay Wood DO) Afib Arthritis Bladder cancer Emphysema lung Gout Hyperlipidemia Macular degeneration Prostate cancer Spinal stenosis Ulcer of right lower leg history of Warfarin anticoagulation Surgical History History of bladder surgery History of cardiac catheterization History of cystoscopy History of heart surgery aortic valve replaced History of hip surgery left hip replaced History of joint replacement bilateral hips History of phacoemulsification of cataract of both eyes with intraocular lens implantation History of prostatectomy S/P left rotator cuff repair Family History Father CAD (coronary artery disease) Mother CAD (coronary artery disease) Brother Bipolar 1 disorder COPD (chronic obstructive pulmonary disease) Grandparent Cancer Grandparent Diabetes Daughter Bipolar 1 disorder Social History Smoking Status: Former smoker Tobacco Type: cigarettes Substance Use Type: None Substance Abuse Comment: drinks a beer nightly Meds Medications and Allergies Allergies amoxicillin Allergy (Severe, Verified 06/04/23 15:15) Swelling of Lip/Tongue/Throat bacitracin [From Neosporin (ayg-vxq-xghlk)] Allergy (Verified 06/04/23 15:15) itch and rash neomycin [From Neosporin (wrp-pnl-szhif)] Allergy (Verified 06/04/23 15:15) itch and rash polymyxin B [From Neosporin (xui-yro-uuztm)] Allergy (Verified 06/04/23 15:15) Rash and itch Home Medications pantoprazole 40 mg tablet,delayed release 40 mg PO QHS 01/19/19 [History Confirmed 06/04/23] gemfibrozil 600 mg tablet 600 mg PO QHS 01/14/20 [History Confirmed 06/04/23] warfarin 5 mg tablet 10 mg PO 2XW 02/05/20 [History Confirmed 06/04/23] tramadol 50 mg tablet 50 mg PO Q6H PRN Pain 10/01/21 [History Confirmed 06/04/23] Exam Physical Exam Vital Signs: Temp Pulse Resp BP Pulse Ox O2 Del Method 98.0 F 69 20 122/75 97 Room Air 06/05/23 11:50 06/05/23 11:50 06/05/23 11:50 06/05/23 11:50 06/05/23 11:50 06/05/23 11:50 Results Laboratory Findings 06/05/23 01:59 06/05/23 01:59 Lab Results: Hemoglobin A1c 5.6 % (4.3-5.6) 06/05/23 01:59 Diagnostic Findings Imaging/Impressions: ITS Impressions Chest X-Ray 06/04/23 15:18 IMPRESSION: Cardiomegaly. Mild vascular congestion. Minor interstitial changes. Impression dictated by: Trey Murray M.D.06/04/2023 5:18 PM Dictation Location: [place] [address] 06/04/23 15:18 IMPRESSION: ATROPHY AND CHRONIC MICROVASCULAR CHANGES. NO DEFINITE ACUTE INTRACRANIAL ABNORMALITY. FOLLOW-UP IS RECOMMENDED, SYMPTOMS WARRANT. Comment: Findings were discussed with Dr. Wood at 1542 hours Impression dictated by: Cyn Llamas M.D.06/04/2023 3:44 PM Dictation Location: [place] [address] Head CTA 06/04/23 15:19 IMPRESSION: MILD ANEURYSMAL DILATATION OF THE ASCENDING AORTA. INTRA AND EXTRACRANIAL CAROTID ARTERY PLAQUE, WITHOUT HEMODYNAMICALLY SIGNIFICANT STENOSIS. Impression dictated by: Cyn Llamas M.D.06/04/2023 4:10 PM Dictation Location: [place] [address] Assessment/Plan (1) Blurred vision: Assessment/Problem Details: CONSULT REASON: Dizziness, blurred vision, rule out myasthenia gravis HPI: 88-year-old man. This past Thunes night around 7:30 PM he noticed sudden onset of a room tumbling or room spinning vertiginous sensation along with visual abnormality. There is no associated nausea or vomiting. He did not haveloss of consciousness or alteration of consciousness. He says it was those 2 isolated symptoms: The dizziness and the vision change. The dizzy sensation seem to have resolved quite rapidly. He had ongoing visual abnormalities. He says it was kind of like everything was blurry. Closing either eye would fix the issue entirely, meaning that when he was looking at the world with just 1 eye, regardless of the eye, the blurriness cleared up. He did notice when looking in certain directions that there was a double image type effect. He wasnot seeing 2 of things, more like 1 image overlaid on the second image but slightly askew. He does not know if it was worsening to direction. He thinks he noticed a little bit of it this morning but as of right now he feels like it is nearly resolved. He is otherwise without complaints. He has atrial fibrillation, takes warfarin, and his presenting INR is 2.7. EXAMINATION: In no distress. No deformities or trauma. Limbs seem well-perfused. No significant edema. Normal work of breathing. Visualized skin is generally intact and without lesions. Affect normal. Patient is alert and generally oriented. Attention normal. Speech is fluent and nondysarthric. Pupils are equal, very mildly reactive. Gaze appears conjugate. Ocular motility is full. Looking in any cardinal direction does not cause significant diplopia. No nystagmus. Facial sensation is normal. Hearing is normal. Facial strength is normal. Tongue is midline. Muscle bulk, tone, and strength are normal. No tremors. Reflexes normal throughout. Light touch is normal. Gait is normal. DATA REVIEW: -Head CT is without acute findings -CTA of head and neck shows mild aneurysmal dilation of the ascending aorta and some atherosclerotic plaques in the intra and extracranial carotid system but without any hemodynamically significant stenosis ASSESSMENT: I suspect that Thursday night he had a small acute ischemic stroke somewhere inposterior circulation territory causing sudden onset of vertigo and a mild disconjugate gaze with slight diplopia interpreted as strangely blurred vision. All the symptoms have now seemingly resolved. Intra and extracranial vascular imaging is without any culprit lesion but does show widespread atherosclerotic changes as would be expected at his age. His other biggest cerebrovascular riskfactor is his atrial fibrillation, for which he is anticoagulated and therapeutic. I do not suspect this represented a neuromuscular junction disorder and would not expect other cause. PLAN: 1. It would be very nice to have an MRI brain without contrast. He has a [employer] transcatheter aortic valve replacement, model number [id number]-[id number], serial number [id number], implanted March 02, 2020. It is MR conditional, and when I look it up it does seem like he would be able to get an MRI study here. The bigger issue is that he says he will be unable to get an MRI in a closed machine without the use of general anesthesia. Given that his symptoms seem to have resolved, I do not think it is worth the risk of general anesthesia just toobtain MRI images. The MRI of the brain has been canceled. An outpatient MRI in an open machine would still be desirable at some point. 2. Continue the warfarin therapy. Given my overall concern for his bleeding risk, I am not adding any antiplatelet medication to the mix. 3. No other recommendations at this time. Documented By: Buck Glover DO 06/05/23 151 Signed By: <Electronically signed by Buck Glover DO> 06/05/23 1526 [facility] Work Phone: 1(486) 494-487212-22-2023 History and physical note Author Isai May [facility] June 04, 2023 10:49pm Note Date/Time June 04, 2023 10:49pm [facility] [address] [place] [address] Hospitalist H&P Signed Patient: Fani Chua MR#: [id number] : 1935 Acct:[id number] Age/Sex: 88 / M Adm Date: 3 Loc: 4N Room: [address] [place] [address] Type: ADM INOo Attending Dr: Isai May DO Copies to: DO María Harmon MD~ HPI DATE OF EXAMINATION: 06/04/23 CHIEF COMPLAINT: Dizziness HISTORY OF PRESENT ILLNESS: This patient is a very pleasant 88-year-old male who presented to the emergency department this afternoon with reports of ongoing visual disturbance along with dizziness. He states he has had a few episodes of some spinning type of sensation sometimes worse with positional changes. A prior event with his causing a loss of consciousness as well. States this has increased in severity and frequency over the prior few days and last night began around 7 PM and has since persisted. He describes ongoing visual disturbance, blurred vision that has persisted since the onset. He does not describe any visual field deficits. Denies any oral or headaches. When covering his right or left eye his vision ismuch clearer than if he is using both of his eyes to focus on an object. The lower visual arceo sometimes distorted with elongation of his fingers at times. He points to a spot on his bed that if he turns his head appears to him as 2 separate spots. Does not describe double vision consistently however. During my conversation with the patient he states I become increasingly blurry as time goes on. When I moved to a different side of the room he is able to focus again and I am much clear. He reports some generalized problems with balance as well with this and states he would absolutely not drive a car at the moment. Ambulation has become a bit more problematic and he would do this with caution. His workup in the ER showed stable vital signs with no hypertension. Unremarkable CBC showing only mild anemia. Chemistries are unremarkable. He does exhibit some slight troponin elevation but denies any chest pain or shortness of breath. He takes Coumadin for chronic atrial fibrillation and describes no current symptoms of palpitations. He has a history of heart valve replacement which has precluded him from obtaining an open MRI in the past for his spinal stenosis. He has seen neurosurgery and pain management for this previously. This valve however has been cleared for MRI by cardiology previously. Physical Examination: GENERAL APPEARANCE: Alert, up in bed AAOx3 HEENT: NCAT, MMM NECK: Neck soft w/o masses, no JVD CARDIAC: Normal S1 and S2. No S3, S4 or murmurs. LUNGS: Clear to auscultation bilaterally. no wheeze/rhonchi/rales ABDOMEN: Positive bowel sounds. Soft, nontender. No guarding or signs of an acute abdomen MUSCULOSKELETAL: No joint erythema or tenderness. EXTREMITIES: No clubbing, cyanosis or edema PSYCHIATRIC: Appropriate mood and affect Assessment and plan: 1. Blurred vision 2. Dizziness 3. Abnormal gait 4. Chronic atrial fibrillation 5. Chronic anticoagulation with Coumadin 6. Troponin elevation 7. Spinal stenosis 8. Bladder cancer 9. Macular degeneration 10. BNP elevation Patient has been seen by [facility] in the past for A-fib however these ongoing cardiac issues do not appear to be symptomatic. His troponin and BNP elevation are mild and potentially chronic. Echocardiogram to rule out cardiac thrombus certainly is warranted for his neurologic evaluation but may shed lighton this further. Low suspicion for ACS or acute CHF at the moment. He does follow with [facility]. With his presenting normotension and lack of other focal deficits I do not actually suspect stroke but certainly further neurologic workup is warranted. Neurology will be consulted. Will check lipid panel, A1c and an echocardiogram. CT angiography of head and neck as well as noncontrast head CT show nothing acute to explain his symptoms. His visual disturbance appears to worsen with ongoing focus on a given object and to me raises concern for myasthenia gravis. The type of MRI imaging I will leave to neurology as simple noncontrast brain MRI may not suffice. Will provide as needed meclizine for any recurrent vertiginous symptoms. Disposition: The patient's multiple neurologic symptoms as well as abnormal cardiac markers warrant extensive evaluation including echocardiogram and thorough neurologic workup and continuous monitoring of his symptoms. He will need safety evaluation in terms of his gait and potential for going home. Continuous telemetry monitoring and exacerbations of underlying cardiac disease need to be ruled out as well. Possible cardiology consult pending ongoing workup. He is thus admitted as an inpatient now for stated that undoubtedly will surpass greater than 2 midnights Review of Systems Review of Systems All other systems reviewed & are negative unless noted below or in HPI [facility] Medical History (Updated 06/04/23 @ 16:47 by Tay Wood DO) Afib Arthritis Bladder cancer Emphysema lung Gout Hyperlipidemia Macular degeneration Prostate cancer Spinal stenosis Ulcer of right lower leg history of Warfarin anticoagulation Surgical History History of bladder surgery History of cardiac catheterization History of cystoscopy History of heart surgery aortic valve replaced History of hip surgery left hip replaced History of joint replacement bilateral hips History of phacoemulsification of cataract of both eyes with intraocular lens implantation History of prostatectomy S/P left rotator cuff repair Family History Father CAD (coronary artery disease) Mother CAD (coronary artery disease) Brother Bipolar 1 disorder COPD (chronic obstructive pulmonary disease) Grandparent Cancer Grandparent Diabetes Daughter Bipolar 1 disorder Social History Smoking Status: Former smoker Tobacco Type: cigarettes Substance Use Type: None Substance Abuse Comment: drinks a beer nightly Meds Medications and Allergies Allergies amoxicillin Allergy (Severe, Verified 06/04/23 15:15) Swelling of Lip/Tongue/Throat bacitracin [From Neosporin ([id number]-wrg-ghlve)] Allergy (Verified 06/04/23 15:15) itch and rash neomycin [From Neosporin (hdw-lcs-nlczw)] Allergy (Verified 06/04/23 15:15) itch and rash polymyxin B [From Neosporin (wis-erh-jwqfn)] Allergy (Verified 06/04/23 15:15) Rash and itch Home Medications pantoprazole 40 mg tablet,delayed release 40 mg PO QHS 01/19/19 [History Confirmed 06/04/23] gemfibrozil 600 mg tablet 600 mg PO QHS 01/14/20 [History Confirmed 06/04/23] warfarin 5 mg tablet 10 mg PO 2XW 02/05/20 [History Confirmed 06/04/23] tramadol 50 mg tablet 50 mg PO Q6H PRN Pain 10/01/21 [History Confirmed 06/04/23] Exam Physical Exam Vital Signs: Temp Pulse Resp BP Pulse Ox O2 Del Method 98 F 63 16 129/75 95 Room Air 06/04/23 21:00 06/04/23 21:00 06/04/23 21:00 06/04/23 21:00 06/04/23 21:00 06/04/23 21:00 Results Lab Results Labs: Laboratory Last Values Corrected WBC 6.9 X10E3/uL (4.1-10.5) 06/04/23 15: Uncorrected WBC Count 6.9 x10E3/uL (4.1-10.5) 06/04/23 15: RBC 4.34 X10E6/uL (3.90-5.60) 06/04/23 15:22 Hgb 12.9 g/dL (13.0-17.0) L 06/04/23 15:22 Hct 38.4 % (38.8-50.0) L 06/04/23 15:22 MCV 88.4 fl (83.5-101) 06/04/23 15:22 MCH 29.7 pg (27.5-35.2) 06/04/23 15: MCHC 33.5 g/dL (32.5-35.6) 06/04/23 15: RDW 14.5 % (12.0-14.8) 06/04/23 15:22 Plt Count 194 x10E3/uL (150-450) 06/04/23 15:22 MPV 8.6 fl (6.6-10.1) 06/04/23 15:22 Neut % (Auto) 63.3 % (.) 06/04/23 15: Lymph % (Auto) 23.0 % (.) 06/04/23 15:22 [place] % (Auto) 11.2 % (.) 06/04/23 15: Eos % (Auto) 1.6 % (.) 06/04/23 15: Baso % (Auto) 0.9 % (.) 06/04/23 15: Nucleat RBC Rel Count 0.1 /100 WBC (0-0.5) 06/04/23 15: Neut # (Auto) 4.4 x10E3/uL (1.8-7.7) 06/04/23 15: Lymph # (Auto) 1.6 x10E3/uL (1.00-4.8) 06/04/23 15: [place] # (Auto) 0.8 x10E3/uL (0.0-0.8) 06/04/23 15: Eos # (Auto) 0.1 x10E3/uL (0.0-0.45) 06/04/23 15: Baso # (Auto) 0.1 x10E3/uL (0.0-0.2) 06/04/23 15: Monocyte Dist Width 17.82 % (0.00-20.00) 06/04/23 15: PT 33.6 Seconds (9.0-12.9) H 06/04/23 15: INR 3.0 06/04/23 15:22 APTT 48.5 Seconds (25.1-36.5) H 06/04/23 15:22 PHA Creatinine Clear 53.65 06/04/23 15:22 Sodium 138 mmol/L (136-145) 06/04/23 15:22 Potassium 4.2 mmol/L (3.5-5.1) 06/04/23 15: Chloride 104 mmol/L (98-107) 06/04/23 15:22 Carbon Dioxide 27.8 mmol/L (21.0-31.0) 06/04/23 15: Anion Gap 10.4 mEq/L (6.0-15.0) 06/04/23 15:22 BUN 21 mg/dL (7-25) 06/04/23 15:22 Creatinine 0.97 mg/dL (0.70-1.30) 06/04/23 15:22 POC Creatinine 1.0 mg/dl (0.6-1.3) 06/04/23 15:24 POC Estimated GFR (eGFR) > 60.0 06/04/23 15:24 Est GFR (CKD-EPI) > 60.0 mL/Min 06/04/23 15:22 Glucose 94 mg/dL (70-100) 06/04/23 15:22 POC Glucose 92 mg/dl 06/04/23 15:21 Calcium 9.6 mg/dL (8.6-10.3) 06/04/23 15:22 Total Bilirubin 0.5 mg/dl (0.3-1.0) 06/04/23 15:22 Direct Bilirubin 0.10 mg/dL (0.03-0.18) 06/04/23 15:22 Indirect Bilirubin 0.4 mg/dL 06/04/23 15:22 AST 30 U/L (13-39) 06/04/23 15:22 ALT 19 U/L (7-52) 06/04/23 15:22 Alkaline Phosphatase 97 U/L (34-104) 06/04/23 15:22 Total Creatine Kinase 60 U/L (30-223) 06/04/23 18:57 Troponin I High Sens 98.3 pg/mL (0.0-20.0) H* 06/04/23 18:57 B-Natriuretic Peptide 404.0 pg/mL (5-100) H 06/04/23 15:22 Total Protein 7.3 gm/dL (6.4-8.9) 06/04/23 15:22 Albumin 4.2 gm/dL (3.5-5.7) 06/04/23 15:22 Globulin 3.1 gm/dL 06/04/23 15:22 Albumin/Globulin Ratio 1.4 06/04/23 15:22 Urine Color Yellow (Yellow) 06/04/23 17:00 Urine Appearance Clear (Clear) 06/04/23 17:00 Urine pH 5.0 (5.0-9.0) 06/04/23 17:00 Ur Specific [place] 1.038 (1.001-1.030) H 06/04/23 17:00 Urine Protein Negative mg/dL (Negative) 06/04/23 17:00 Urine Glucose (UA) Normal mg/dL (Normal) 06/04/23 17:00 Urine Ketones Negative (Negative) 06/04/23 17:00 Urine Occult Blood Negative (Negative) 06/04/23 17:00 Urine Nitrite Negative (Negative) 06/04/23 17:00 Urine Bilirubin Negative (Negative) 06/04/23 17:00 Urine Urobilinogen Normal mg/dL (Normal) 06/04/23 17:00 Ur Leukocyte Esterase Negative (Negative) 06/04/23 17:00 Assessment & Plan Assessment/Plan (1) Blurred vision: Plan as above IP vs OBS Justification Based on differential dx, clinical care plan, and risk of adverse events, if untreated, in my clinical judgement this patient requires an acute care setting as: INPATIENT because of an expectation of an over 2 midnight stay. Estimated length of stay (# of days): 3 Documented By: Isai May DO 06/04/23 22 35 Signed By: <Electronically signed by Isai May DO> 06/04/23 2249 [facility] Work Phone: 1(545) 860-511110-19-2023 Progress note Author Marisela Shaffer [facility] April 02, 2023 12:55pm Note Date/Time April 02, 2023 1 2:55pm [facility] [address] [place] [address] Wound Center Provider Note Signed Patient: Fani Chua MR#: [id number] : 1935 Acct:[id number] Age/Sex: 87 / M Copies to: MD Marisela Jansen, RECORD MAKER~ HPI Date of Visit Date of Visit: Date of Service: 04/02/2023 Time of Service: 12:54 Narrative HPI: 02/26/23 Te is an 87 year old male presenting to [facility] wound care program for an initial visit for eval and treatment of a traumatic wound to the left lower leg. He has been using honey gel on the area with a nonstick telfa bandage. I see no signs of infection today. He will use an antimicrobial cleanser-vashe- and honey gel with a bandage. Healing will depend on the dressings being done as ordered as well as having a well balanced diet. Some supportive suggestions were provided on his discharge papers such as collagen, vit c, probiotics, and an anti-inflammatory diet. 03/05/23 had a fall since last seen here because of the dog pulling him on the leash and now has injured the left leg more and the left hand as well, orders changed to collagen powder and silicone bandages and he will come here on thursdayto have the dressings changed, no acute infection noted 03/16/23 better, same orders as last visit, will continue to come here twice weekly for dressings and visits, is taking antibiotics per his terrazzo roller forsomething not related to the wounds we are treating 03/23/23 better, same orders for the leg, the hand was switched to steroid for some irritation, will return later this week for dressing change 04/02/23 better, topical gent started, 2 week appt Subjective Pain Left Lower Leg: Pain Description: Intermittent Pain Intensity: 0 Pain Management Techniques Other/Comment: Only hurts when touched Wound/Ulcer History When did wound start?: Early January Mode of Arrival/ Residential Life Director: Personal vehicle Lives with:: Spouse Appetite Description: Within Normal Limits Who helps w/ dressing change?: Self Smoking Status: Former smoker [facility] Medical History (Updated 03/23/23 @ 15:05 by Marisela Shaffer APRN) Afib Bladder cancer Diabetes mellitus type 2, diet-controlled Pt doesn't take any meds Gout Prostate cancer Spinal stenosis Ulcer of right lower leg history of Warfarin anticoagulation Surgical History History of bladder surgery History of hip surgery left hip replaced History of prostatectomy S/P left rotator cuff repair Family History Father CAD (coronary artery disease) Mother CAD (coronary artery disease) Brother Bipolar 1 disorder COPD (chronic obstructive pulmonary disease) Grandparent Cancer Grandparent Diabetes Social History Smoking Status: Former smoker Tobacco Type: cigarettes Substance Use Type: None Substance Abuse Comment: couple beers/day Grafts History of Graft History of Graft?: No Exam Physical Exam Vital Signs: Temp Pulse Resp BP O2 Del Method 98.4 F 65 18 124/81 Room Air 04/02/23 12:46 04/02/23 12:46 04/02/23 12:46 04/02/23 12:46 04/02/23 12:46 Const General: cooperative, healthy appearing, comfortable, no acute distress and wellgroomed Nutritional Appearance: average body habitus Orientation: alert, awake and oriented x3 Lower/Upper Extremity Exam Vascular Exam-Edema Left Lower Extremity: Edema Type: Non-Pitting Vascular Exam-Pulses Left Brachial: Pulse Assessment Method: NIBP Objective Meds/Allergies Home Medications pantoprazole 40 mg tablet,delayed release 40 mg PO DAILY 01/19/19 [History Confirmed 03/16/23] gemfibrozil 600 mg tablet 600 mg PO DAILY 01/14/20 [History Confirmed 03/16/23] warfarin 5 mg tablet 7.5 mg PO 2XW 02/05/20 [History Confirmed 03/16/23] tramadol 50 mg tablet 50 mg PO Q6H PRN Pain 10/01/21 [History Confirmed 03/16/23] indomethacin 50 mg capsule 50 mg PO BID PRN Pain, Moderate 03/05/22 [History Confirmed 03/16/23] minocycline 100 mg capsule 100 mg PO 2XD 03/16/23 [History Confirmed 03/16/23] Allergies amoxicillin Allergy (Severe, Verified 02/26/23 10:30) Swelling of Lip/Tongue/Throat bacitracin [From Neosporin ([id number])] Allergy (Verified 02/26/23 10:30) itch and rash neomycin [From Neosporin ([id number])] Allergy (Verified 02/26/23 10:30) itch and rash polymyxin B [From Neosporin ([id number])] Allergy (Verified 02/26/23 10:30) Rash and itch Wound/Ulcer Left Lower Leg: Type: Traumatic Thickness: Full Bed Appearance: Beefy Red, Epithelial Tissue or Bridge, [place] and Yellow Percent of Wound Bed Granulated/Red: 90 Percent of Devitalized: 10 Length (cm): 15.5 Width (cm): 4.0 Depth (cm): 0.1 CM Sq: 62.000 Surrounding Tissue Appearance: Hyperpigmented Surrounding Tissue Temp: Warm Drainage Amount: Moderate Drainage Description: Serosanguineous Drainage Odor: No Odor Left Hand: Type: Traumatic Thickness: Full Percent of Devitalized: 0 Length (cm): 0 Width (cm): 0 Depth (cm): 0 CM Sq: 0.000 Surrounding Tissue Appearance: Ethnic/Norm Surrounding Tissue Temp: Warm Drainage Amount: None Drainage Odor: No Odor Results Height: 5 ft 9 in Weight: 75.75 kg Body Mass Index: 24.6 Assessment/Plan Assessment/Plan (1) Traumatic wound: Assessment/Problem Details: lle left hand new 03/05/23 visit Status: Chronic (2) At high risk for altered skin integrity: Code(s): Z91.89 - Other specified personal risk factors, not elsewhere classified Status: Chronic (3) Thinning of skin: Code(s): R23.4 - Changes in skin texture Status: Chronic (4) Pain: Assessment/Problem Details: lle wound Code(s): R52 - Pain, unspecified Status: Chronic (5) Inflammation: Status: Chronic (6) Fall: Assessment/Problem Details: from being pulled by dog Code(s): W19.XXXA - Unspecified fall, initial encounter Status: Inactive Time spent with patient Time Spent With Patient (min): 11 Dictated By: Marisela Shaffer APRN DD/ 53 Signed By: <Electronically signed by BENJI Shaffer> 04/02/23 1255 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 March 23, 2023 3:05pm Note Date/Time March 23, 2023 3: 05pm [facility] [address] [place] [address] Wound Center Provider Note Signed Patient: Fani Chua MR#: [id number] : 1935 Acct:[id number] Age/Sex: 87 / M Copies to: MD Marisela Jansen APRN~ HPI Date of Visit Date of Visit: Date of Service: 03/23/2023 Time of Service: 15:03 Narrative HPI: 02/26/23 Te is an 87 year old male presenting to [facility] wound care program for an initial visit for eval and treatment of a traumatic wound to the left lower leg. He has been using honey gel on the area with a nonstick telfa bandage. I see no signs of infection today. He will use an antimicrobial cleanser-vashe- and honey gel with a bandage. Healing will depend on the dressings being done as ordered as well as having a well balanced diet. Some supportive suggestions were provided on his discharge papers such as collagen, vit c, probiotics, and an anti-inflammatory diet. 03/05/23 had a fall since last seen here because of the dog pulling him on the leash and now has injured the left leg more and the left hand as well, orders changed to collagen powder and silicone bandages and he will come here on thursdayto have the dressings changed, no acute infection noted 03/16/23 better, same orders as last visit, will continue to come here twice weekly for dressings and visits, is taking antibiotics per his terrazzo roller forsomething not related to the wounds we are treating 03/23/23 better, same orders for the leg, the hand was switched to steroid for some irritation, will return later this week for dressing change Subjective Pain Left Lower Leg: Pain Description: Intermittent and Soreness Pain Intensity: 0 Pain Management Techniques Other/Comment: Only hurts when touched Left Hand: Pain Description: Intermittent Pain Intensity: 0 Wound/Ulcer History When did wound start?: Early January Mode of Arrival/ Residential Life Director: Personal vehicle Lives with:: Spouse Appetite Description: Within Normal Limits Who helps w/ dressing change?: Self Smoking Status: Former smoker [facility] Medical History (Updated 03/23/23 @ 15:05 by Marisela Shaffer APRN) Afib Bladder cancer Diabetes mellitus type 2, diet-controlled Pt doesn't take any meds Gout Prostate cancer Spinal stenosis Ulcer of right lower leg history of Warfarin anticoagulation Surgical History History of bladder surgery History of hip surgery left hip replaced History of prostatectomy S/P left rotator cuff repair Family History Father CAD (coronary artery disease) Mother CAD (coronary artery disease) Brother Bipolar 1 disorder COPD (chronic obstructive pulmonary disease) Grandparent Cancer Grandparent Diabetes Social History Smoking Status: Former smoker Tobacco Type: cigarettes Substance Use Type: None Substance Abuse Comment: couple beers/day Grafts History of Graft History of Graft?: No Exam Physical Exam Vital Signs: Temp Pulse Resp BP O2 Del Method 98.4 F 59 L 18 153/84 H Room Air 03/23/23 14:58 03/23/23 14:58 03/23/23 14:58 03/23/23 14:58 03/23/23 14:58 Const General: cooperative, healthy appearing, comfortable, no acute distress and wellgroomed Nutritional Appearance: average body habitus Orientation: alert, awake and oriented x3 Lower/Upper Extremity Exam Vascular Exam-Edema Left Lower Extremity: Edema Type: Non-Pitting Vascular Exam-Pulses Left Brachial: Pulse Assessment Method: NIBP Objective Meds/Allergies Home Medications pantoprazole 40 mg tablet,delayed release 40 mg PO DAILY 01/19/19 [History Confirmed 03/16/23] gemfibrozil 600 mg tablet 600 mg PO DAILY 01/14/20 [History Confirmed 03/16/23] warfarin 5 mg tablet 7.5 mg PO 2XW 02/05/20 [History Confirmed 03/16/23] tramadol 50 mg tablet 50 mg PO Q6H PRN Pain 10/01/21 [History Confirmed 03/16/23] indomethacin 50 mg capsule 50 mg PO BID PRN Pain, Moderate 03/05/22 [History Confirmed 03/16/23] minocycline 100 mg capsule 100 mg PO 2XD 03/16/23 [History Confirmed 03/16/23] Allergies amoxicillin Allergy (Severe, Verified 02/26/23 10:30) Swelling of Lip/Tongue/Throat bacitracin [From Neosporin ([id number]-[id number]-[id number])] Allergy (Verified 02/26/23 10:30) itch and rash neomycin [From Neosporin (fxx-uxn-rqxlg)] Allergy (Verified 02/26/23 10:30) itch and rash polymyxin B [From Neosporin ([id number]-vkj-zwemk)] Allergy (Verified 02/26/23 10:30) Rash and itch Wound/Ulcer Left Lower Leg: Type: Traumatic Thickness: Full Bed Appearance: Beefy Red, Epithelial Tissue or Bridge, [place] and Yellow Percent of Wound Bed Granulated/Red: 90 Percent of Devitalized: 10 Length (cm): 16.0 Width (cm): 4.5 Depth (cm): 0.1 CM Sq: 72.000 Surrounding Tissue Appearance: Hyperpigmented Surrounding Tissue Temp: Warm Drainage Amount: Moderate Drainage Description: Serosanguineous Drainage Odor: No Odor Left Hand: Type: Traumatic Thickness: Full Bed Appearance: [place] Percent of Wound Bed Granulated/Red: 100 Percent of Devitalized: 0 Length (cm): 0.5 Width (cm): 0.5 Depth (cm): 0.1 CM Sq: 0.250 Surrounding Tissue Appearance: Rash/Irritation Surrounding Tissue Temp: Warm Drainage Amount: Small Drainage Description: Serosanguineous Drainage Odor: No Odor Results Height: 5 ft 9 in Weight: 75.75 kg Body Mass Index: 24.6 Assessment/Plan Assessment/Plan (1) Traumatic wound: Assessment/Problem Details: lle left hand new 03/05/23 visit Status: Chronic (2) At high risk for altered skin integrity: Code(s): Z91.89 - Other specified personal risk factors, not elsewhere classified Status: Chronic (3) Thinning of skin: Code(s): R23.4 - Changes in skin texture Status: Chronic (4) Pain: Assessment/Problem Details: lle wound Code(s): R52 - Pain, unspecified Status: Chronic (5) Inflammation: Status: Chronic (6) Fall: Assessment/Problem Details: from being pulled by dog Code(s): W19.XXXA - Unspecified fall, initial encounter Status: Inactive Time spent with patient Time Spent With Patient (min): 10 Dictated By: Marisela Shaffer APRN DD/ 150 Signed By: <Electronically signed by BENJI Shaffer> 03/23/23 1505 [facility] Work Phone: 1(908) 190-531110-02-2023 Progress note Author Marisela Shaffer [facility] March 16, 2023 2:26pm Note Date/Time March 16, 2023 2: 26pm [facility] [address] [place] [address] Wound Center Provider Note Signed Patient: Fani Chua MR#: [id number] : 1935 Acct:[id number] Age/Sex: 87 / M Copies to: MD Marisela Jansen APRN~ HPI Date of Visit Date of Visit: Date of Service: 03/16/2023 Time of Service: 14:24 Narrative HPI: 02/26/23 Te is an 87 year old male presenting to [facility] wound care program for an initial visit for eval and treatment of a traumatic wound to the left lower leg. He has been using honey gel on the area with a nonstick telfa bandage. I see no signs of infection today. He will use an antimicrobial cleanser-vashe- and honey gel with a bandage. Healing will depend on the dressings being done as ordered as well as having a well balanced diet. Some supportive suggestions were provided on his discharge papers such as collagen, vit c, probiotics, and an anti-inflammatory diet. 03/05/23 had a fall since last seen here because of the dog pulling him on the leash and now has injured the left leg more and the left hand as well, orders changed to collagen powder and silicone bandages and he will come here on thursdayto have the dressings changed, no acute infection noted 03/16/23 better, same orders as last visit, will continue to come here twice weekly for dressings and visits, is taking antibiotics per his terrazzo roller forsomething not related to the wounds we are treating Subjective Pain Left Lower Leg: Pain Description: Intermittent and Soreness Pain Intensity: 0 Pain Management Techniques Other/Comment: Only hurts when touched Left Hand: Pain Description: Intermittent and Soreness Pain Intensity: 1 Wound/Ulcer History When did wound start?: Early January Mode of Arrival/ Residential Life Director: Personal vehicle Lives with:: Spouse Appetite Description: Within Normal Limits Who helps w/ dressing change?: Self Smoking Status: Former smoker [facility] Medical History (Updated 03/05/23 @ 13:46 by Marisela Shaffer APRN) Afib Bladder cancer Diabetes mellitus type 2, diet-controlled Pt doesn't take any meds Gout Prostate cancer Spinal stenosis Ulcer of right lower leg history of Warfarin anticoagulation Surgical History History of bladder surgery History of hip surgery left hip replaced History of prostatectomy S/P left rotator cuff repair Family History Father CAD (coronary artery disease) Mother CAD (coronary artery disease) Brother Bipolar 1 disorder COPD (chronic obstructive pulmonary disease) Grandparent Cancer Grandparent Diabetes Social History Smoking Status: Former smoker Tobacco Type: cigarettes Substance Use Type: None Substance Abuse Comment: couple beers/day Grafts History of Graft History of Graft?: No Exam Physical Exam Vital Signs: Temp Pulse Resp BP O2 Del Method 98.4 F 65 20 122/60 Room Air 03/16/23 14:13 03/16/23 14:13 03/16/23 14:13 03/16/23 14:13 03/16/23 14:13 Const General: cooperative, healthy appearing, comfortable, no acute distress and wellgroomed Nutritional Appearance: average body habitus Orientation: alert, awake and oriented x3 Lower/Upper Extremity Exam Vascular Exam-Edema Left Lower Extremity: Edema Type: None Vascular Exam-Pulses Left Brachial: Pulse Assessment Method: NIBP Objective Meds/Allergies Home Medications pantoprazole 40 mg tablet,delayed release 40 mg PO DAILY 01/19/19 [History Confirmed 03/16/23] gemfibrozil 600 mg tablet 600 mg PO DAILY 01/14/20 [History Confirmed 03/16/23] warfarin 5 mg tablet 7.5 mg PO 2XW 02/05/20 [History Confirmed 03/16/23] tramadol 50 mg tablet 50 mg PO Q6H PRN Pain 10/01/21 [History Confirmed 03/16/23] indomethacin 50 mg capsule 50 mg PO BID PRN Pain, Moderate 03/05/22 [History Confirmed 03/16/23] minocycline 100 mg capsule 100 mg PO 2XD 03/16/23 [History Confirmed 03/16/23] Allergies amoxicillin Allergy (Severe, Verified 02/26/23 10:30) Swelling of Lip/Tongue/Throat bacitracin [From Neosporin ([id number]-nyz-[id number])] Allergy (Verified 02/26/23 10:30) itch and rash neomycin [From Neosporin (isz-ztt-[id number])] Allergy (Verified 02/26/23 10:30) itch and rash polymyxin B [From Neosporin ([id number])] Allergy (Verified 02/26/23 10:30) Rash and itch Wound/Ulcer Left Lower Leg: Type: Traumatic Thickness: Full Bed Appearance: Beefy Red, Epithelial Tissue or Bridge, [place] and Yellow Percent of Wound Bed Granulated/Red: 75 Percent of Devitalized: 25 Length (cm): 18 Width (cm): 6 Depth (cm): 0.1 CM Sq: 108.000 Surrounding Tissue Appearance: Hyperpigmented Surrounding Tissue Temp: Warm Drainage Amount: Moderate Drainage Description: Serosanguineous Drainage Odor: No Odor Left Hand: Type: Traumatic Thickness: Full Bed Appearance: Beefy Red, Reliance and Yellow Percent of Wound Bed Granulated/Red: 80 Percent of Devitalized: 20 Length (cm): 1 Width (cm): 0.7 Depth (cm): 0.1 CM Sq: 0.700 Surrounding Tissue Appearance: Hyperpigmented Surrounding Tissue Temp: Warm Drainage Amount: Small Drainage Description: Serosanguineous Drainage Odor: No Odor Results Height: 5 ft 9 in Weight: 75.75 kg Body Mass Index: 24.6 Assessment/Plan Assessment/Plan (1) Traumatic wound: Assessment/Problem Details: lle left hand new 03/05/23 visit Status: Chronic (2) At high risk for altered skin integrity: Code(s): Z91.89 - Status: Chronic (3) Thinning of skin: Code(s): R23.4 - Status: Chronic (4) Pain: Assessment/Problem Details: lle wound Code(s): R52 - Status: Chronic (5) Inflammation: Status: Chronic (6) Fall: Assessment/Problem Details: from being pulled by dog Code(s): W19.XXXA - Status: Acute Time spent with patient Time Spent With Patient (min): 10 Dictated By: Marisela Shaffer APRN DD/ 23 Signed By: <Electronically signed by BENJI Shaffer> 03/16/23 142 [facility] Work Phone: 1(602) 656-208909-21-2023 Progress note Author Marisela Shaffer [facility] March 05, 2023 1:47pm Note Date/Time March 05, 2023 1:47pm [facility] [address] [place] [address] Wound Center Provider Note Signed Patient: Fani Chua MR#: [id number] : 1935 Acct:[id number] Age/Sex: 87 / M Copies to: MD Marisela Jansen APRN~ HPI Date of Visit Date of Visit: Date of Service: 03/05/2023 Time of Service: 13:44 Narrative HPI: 02/26/23 Te is an 87 year old male presenting to [facility] wound care program for an initial visit for eval and treatment of a traumatic wound to the left lower leg. He has been using honey gel on the area with a nonstick telfa bandage. I see no signs of infection today. He will use an antimicrobial cleanser-vashe- and honey gel with a bandage. Healing will depend on the dressings being done as ordered as well as having a well balanced diet. Some supportive suggestions were provided on his discharge papers such as collagen, vit c, probiotics, and an anti-inflammatory diet. 03/05/23 had a fall since last seen here because of the dog pulling him on the leash and now has injured the left leg more and the left hand as well, orders changed to collagen powder and silicone bandages and he will come here on thursdayto have the dressings changed, no acute infection noted Subjective Pain Left Lower Leg: Pain Description: Intermittent, Tender and Burning Pain Management Techniques Other/Comment: Only hurts when touched Left Hand: Pain Description: Intermittent Wound/Ulcer History When did wound start?: Early January Mode of Arrival/ Residential Life Director: Personal vehicle Lives with:: Spouse Appetite Description: Within Normal Limits Who helps w/ dressing change?: Self Smoking Status: Former smoker [facility] Medical History (Updated 03/05/23 @ 13:46 by Marisela Shaffer APRN) Afib Bladder cancer Diabetes mellitus type 2, diet-controlled Pt doesn't take any meds Gout Prostate cancer Spinal stenosis Ulcer of right lower leg history of Warfarin anticoagulation Surgical History History of bladder surgery History of hip surgery left hip replaced History of prostatectomy S/P left rotator cuff repair Family History Father CAD (coronary artery disease) Mother CAD (coronary artery disease) Brother Bipolar 1 disorder COPD (chronic obstructive pulmonary disease) Grandparent Cancer Grandparent Diabetes Social History Smoking Status: Former smoker Tobacco Type: cigarettes Substance Use Type: None Substance Abuse Comment: couple beers/day Grafts History of Graft History of Graft?: No Exam Physical Exam Vital Signs: Temp Pulse Resp BP O2 Del Method 98.2 F 70 18 134/69 Room Air 03/05/23 13:26 03/05/23 13:26 03/05/23 13:26 03/05/23 13:26 03/05/23 13:26 Const General: cooperative, healthy appearing, comfortable, no acute distress and wellgroomed Nutritional Appearance: average body habitus Orientation: alert, awake and oriented x3 Lower/Upper Extremity Exam Vascular Exam-Edema Left Lower Extremity: Edema Type: None Vascular Exam-Pulses Left Brachial: Pulse Assessment Method: NIBP Objective Meds/Allergies Home Medications pantoprazole 40 mg tablet,delayed release 40 mg PO DAILY 01/19/19 [History Confirmed 02/26/23] gemfibrozil 600 mg tablet 600 mg PO DAILY 01/14/20 [History Confirmed 02/26/23] warfarin 5 mg tablet 7.5 mg PO 2XW 02/05/20 [History Confirmed 02/26/23] tramadol 50 mg tablet 50 mg PO Q6H PRN Pain 10/01/21 [History Confirmed 02/26/23] indomethacin 50 mg capsule 50 mg PO BID PRN Pain, Moderate 03/05/22 [History Confirmed 02/26/23] Allergies amoxicillin Allergy (Severe, Verified 02/26/23 10:30) Swelling of Lip/Tongue/Throat bacitracin [From Neosporin ([id number]-[id number])] Allergy (Verified 02/26/23 10:30) itch and rash neomycin [From Neosporin ([id number]-ydl-safoq)] Allergy (Verified 02/26/23 10:30) itch and rash polymyxin B [From Neosporin ([id number]-[id number])] Allergy (Verified 02/26/23 10:30) Rash and itch Wound/Ulcer Left Lower Leg: Type: Traumatic Thickness: Full Bed Appearance: Beefy Red, Epithelial Tissue or Bridge, [place] and Yellow Percent of Wound Bed Granulated/Red: 95 Percent of Devitalized: 5 Length (cm): 20 Width (cm): 16 Depth (cm): 0.1 CM Sq: 320.000 Surrounding Tissue Appearance: Hyperpigmented Surrounding Tissue Temp: Warm Drainage Amount: Moderate Drainage Description: Serosanguineous Drainage Odor: No Odor Left Hand: Type: Traumatic Thickness: Full Bed Appearance: Beefy Red, Epithelial Tissue or Bridge, [place] and Yellow Percent of Wound Bed Granulated/Red: 90 Percent of Devitalized: 10 Length (cm): 4.3 Width (cm): 1.5 Depth (cm): 0.1 CM Sq: 6.450 Surrounding Tissue Appearance: Hyperpigmented and Ecchymotic Surrounding Tissue Temp: Warm Drainage Amount: Moderate Drainage Description: Bloody Drainage Odor: No Odor Results Height: 5 ft 9 in Weight: 75.75 kg Body Mass Index: 24.6 Assessment/Plan Assessment/Plan (1) Traumatic wound: Assessment/Problem Details: lle left hand new 03/05/23 visit Status: Chronic (2) At high risk for altered skin integrity: Code(s): Z91.89 - Other specified personal risk factors, not elsewhere classified Status: Chronic (3) Thinning of skin: Code(s): R23.4 - Changes in skin texture Status: Chronic (4) Pain: Assessment/Problem Details: lle wound Code(s): R52 - Pain, unspecified Status: Chronic (5) Inflammation: Status: Chronic (6) Fall: Assessment/Problem Details: from being pulled by dog Code(s): W19.XXXA - Unspecified fall, initial encounter Status: Acute Time spent with patient Time Spent With Patient (min): 18 Dictated By: Marisela Shaffer APRN DD/ 43 Signed By: <Electronically signed by BENJI Shaffer> 03/05/23 1347 [facility] Work Phone: 1(594) 624-149109-14-2023 Progress note Author Marisela Shaffer [facility] February 26, 2023 10:41am Note Date/Time February 26, 2023 10:39am [facility] [address] [place] [address] Wound Center Provider Note Signed Patient: Fani Chua MR#: [id number] : 1935 Acct:[id number] Age/Sex: 87 / M Copies to: MD Marisela Jansen APRN~ HPI Date of Visit Date of Visit: Date of Service: 02/26/2023 Time of Service: 10:37 Narrative HPI: 02/26/23 Te is an 87 year old male presenting to [facility] wound care program for an initial visit for eval and treatment of a traumatic wound to the left lower leg. He has been using honey gel on the area with a nonstick telfa bandage. I see no signs of infection today. He will use an antimicrobial cleanser-vashe- and honey gel with a bandage. Healing will depend on the dressings being done as ordered as well as having a well balanced diet. Some supportive suggestions were provided on his discharge papers such as collagen, vit c, probiotics, and an anti-inflammatory diet. Subjective Pain Left Lower Leg: Pain Description: Intermittent and Soreness Pain Management Techniques Other/Comment: Only hurts when touched Wound/Ulcer History When did wound start?: Early January Mode of Arrival/ Residential Life Director: Personal vehicle Lives with:: Spouse Appetite Description: Within Normal Limits Who helps w/ dressing change?: Self Smoking Status: Former smoker [facility] Medical History (Updated 02/26/23 @ 10:38 by Marisela Shaffer APRN) Afib Bladder cancer Diabetes mellitus type 2, diet-controlled Pt doesn't take any meds Gout Prostate cancer Spinal stenosis Ulcer of right lower leg history of Warfarin anticoagulation Surgical History History of bladder surgery History of hip surgery left hip replaced History of prostatectomy S/P left rotator cuff repair Family History Father CAD (coronary artery disease) Mother CAD (coronary artery disease) Brother Bipolar 1 disorder COPD (chronic obstructive pulmonary disease) Grandparent Cancer Grandparent Diabetes Social History Smoking Status: Former smoker Tobacco Type: cigarettes Substance Use Type: None Substance Abuse Comment: couple beers/day Grafts History of Graft History of Graft?: No Exam Physical Exam Vital Signs: Temp Pulse Resp BP O2 Del Method 98.8 F 63 18 165/81 H Room Air 02/26/23 10:25 02/26/23 10:25 02/26/23 10:25 02/26/23 10:25 02/26/23 10:25 Const General: cooperative, healthy appearing, comfortable, no acute distress and wellgroomed Nutritional Appearance: average body habitus Orientation: alert, awake and oriented x3 Lower/Upper Extremity Exam Vascular Exam-Edema Left Lower Extremity: Edema Type: None Vascular Exam-Pulses Left Brachial: Pulse Assessment Method: NIBP Objective Meds/Allergies Home Medications pantoprazole 40 mg tablet,delayed release 40 mg PO DAILY 01/19/19 [History Confirmed 02/26/23] gemfibrozil 600 mg tablet 600 mg PO DAILY 01/14/20 [History Confirmed 02/26/23] warfarin 5 mg tablet 7.5 mg PO 2XW 02/05/20 [History Confirmed 02/26/23] tramadol 50 mg tablet 50 mg PO Q6H PRN Pain 10/01/21 [History Confirmed 02/26/23] indomethacin 50 mg capsule 50 mg PO BID PRN Pain, Moderate 03/05/22 [History Confirmed 02/26/23] Allergies amoxicillin Allergy (Severe, Verified 02/26/23 10:30) Swelling of Lip/Tongue/Throat bacitracin [From Neosporin ([id number])] Allergy (Verified 02/26/23 10:30) itch and rash neomycin [From Neosporin ([id number])] Allergy (Verified 02/26/23 10:30) itch and rash polymyxin B [From Neosporin ([id number])] Allergy (Verified 02/26/23 10:30) Rash and itch Wound/Ulcer Left Lower Leg: Type: Traumatic Thickness: Full Bed Appearance: Beefy Red, Reliance and Yellow Percent of Wound Bed Granulated/Red: 95 Percent of Devitalized: 5 Length (cm): 1.4 Width (cm): 1.4 Depth (cm): 0.1 CM Sq: 1.960 Surrounding Tissue Appearance: Hyperpigmented Surrounding Tissue Temp: Warm Drainage Amount: Moderate Drainage Description: Serosanguineous Drainage Odor: No Odor Results Height: 5 ft 9 in Weight: 75.75 kg Body Mass Index: 24.6 Assessment/Plan Assessment/Plan (1) Traumatic wound: Assessment/Problem Details: lle Status: Chronic (2) At high risk for altered skin integrity: Code(s): Z91.89 - Other specified personal risk factors, not elsewhere classified Status: Chronic (3) Thinning of skin: Code(s): R23.4 - Changes in skin texture Status: Chronic (4) Pain: Assessment/Problem Details: lle wound Code(s): R52 - Pain, unspecified Status: Chronic (5) Inflammation: Status: Chronic Time spent with patient Time Spent With Patient (min): 15 Dictated By: Marisela Shaffer APRN DD/ 1037 Signed By: <Electronically signed by BENJI Shaffer> 02/26/23 1041 [facility] Work Phone: 1([phone]) 100-326912-15-2022 Progress note Author Marisela Shaffer [facility] 2022 10:58am Note Date/Time 2022 10:58am [facility] [address] [place] [address] Wound Center Provider Note Signed Patient: Fani Chua MR#: [id number] : 1935 Acct:[id number] Age/Sex: 87 / M Copies to: Trey العلي,DO Marisela Shaffer APRN~ HPI Date of Visit Date of Visit: Date of Service: 2022 Time of Service: 10:55 Narrative HPI: 05/29/22 Te is an 87 year old male presenting to [facility] wound care program for an initial visit for eval and treatment of a traumatic wound to the left lower leg. He has been using honey gel on the area with a nonstick telfa bandage. I see no signs of infection today but he did ask for Doxycycline since he is leaving for [place] in a couple weeks. He will use an antimicrobial cleanser and collagen powder/honey gel with a bandage. Healing will depend on the dressings being done as ordered as well as having a well balanced diet. Subjective Pain Left Lower Leg: Pain Intensity: 0 Wound/Ulcer History When did wound start?: April2022 Mode of Arrival/ Residential Life Director: Personal vehicle Lives with:: Spouse Appetite Description: Within Normal Limits Who helps w/ dressing change?: Self Smoking Status: Former smoker [facility] Medical History (Updated 05/29/22 @ 10:58 by Marisela Shaffer APRN) Afib Bladder cancer Diabetes mellitus type 2, diet-controlled Pt doesn't take any meds Gout Prostate cancer Ulcer of right lower leg history of Warfarin anticoagulation Surgical History History of bladder surgery History of hip surgery left hip replaced History of prostatectomy S/P left rotator cuff repair Family History Father CAD (coronary artery disease) Mother CAD (coronary artery disease) Brother Bipolar 1 disorder COPD (chronic obstructive pulmonary disease) Grandparent Cancer Grandparent Diabetes Social History Smoking Status: Former smoker Tobacco Type: cigarettes Substance Use Type: Alcohol Substance Abuse Comment: 1-2 beers a day Grafts History of Graft History of Graft?: No Exam Physical Exam Vital Signs: Temp Pulse Resp BP O2 Del Method 98.1 F 76 18 156/84 H Room Air 05/29/22 10:43 05/29/22 10:43 05/29/22 10:43 05/29/22 10:43 05/29/22 10:43 Const General: cooperative, comfortable and no acute distress Nutritional Appearance: average body habitus Orientation: alert, awake and oriented x3 Lower/Upper Extremity Exam Vascular Exam-Edema Left Lower Extremity: Edema Type: None Vascular Exam-Pulses Right Radial: Pulse Assessment Method: Palpation Left Dorsalis Pedis: Pulse Assessment Method: Palpation Left Posterior Tibial: Pulse Assessment Method: Palpation Objective Meds/Allergies Home Medications pantoprazole 40 mg tablet,delayed release 40 mg PO DAILY 01/19/19 [History Confirmed 05/29/22] gemfibrozil 600 mg tablet 600 mg PO DAILY 01/14/20 [History Confirmed 05/29/22] warfarin 5 mg tablet 7.5 mg PO 2XW 02/05/20 [History Confirmed 05/29/22] warfarin 5 mg tablet 10 mg PO 5XW 12/10/20 [History Confirmed 05/29/22] tramadol 50 mg tablet 50 mg PO Q6H PRN Pain 10/01/21 [History Confirmed 05/29/22] indomethacin 50 mg capsule 50 mg PO BID 03/05/22 [History Confirmed 05/29/22] doxycycline hyclate 100 mg capsule 100 mg PO BID 14 days #28 caps 05/29/22 [Rx] Allergies amoxicillin Allergy (Severe, Verified 03/19/22 10:31) Swelling of Lip/Tongue/Throat bacitracin [From Neosporin ([id number])] Allergy (Verified 03/19/22 10:31) itch and rash neomycin [From Neosporin ([id number])] Allergy (Verified 03/19/22 10:31) itch and rash polymyxin B [From Neosporin ([id number]-sne-hghzh)] Allergy (Verified 03/19/22 10:31) Rash and itch Wound/Ulcer Left Lower Leg: Type: Traumatic Thickness: Partial Bed Appearance: Beefy Red, Reliance and Yellow Percent of Wound Bed Granulated/Red: 95 Percent of Devitalized: 5 Length (cm): 1.1 Width (cm): 0.6 Depth (cm): 0.1 CM Sq: 0.660 Surrounding Tissue Appearance: Hyperpigmented and Dryness Surrounding Tissue Temp: Warm Drainage Amount: Scant Drainage Description: Serosanguineous Drainage Odor: No Odor Assessment/Plan Assessment/Plan (1) Skin tear of left lower leg without complication: Qualifiers: Encounter type: initial encounter Qualified Code(s): S81.812A - Laceration without foreign body, left lower leg, initial encounter Code(s): S81.812A - Laceration without foreign body, left lower leg, initial encounter Status: Acute (2) At high risk for altered skin integrity: Code(s): Z91.89 - Other specified personal risk factors, not elsewhere classified Status: Chronic (3) Thinning of skin: Code(s): R23.4 - Changes in skin texture Status: Chronic Time spent with patient Time Spent With Patient (min): 15 Dictated By: Marisela Shaffer APRN DD/ 1055 Signed By: <Electronically signed by BENJI Shaffer> 05/29/22 1058 [facility] Work Phone: [phone]) 368-976212-08-2022 NoteCONSULTATION CONSULTATION DATE: 05/22/2022 HISTORY OF PRESENT ILLNESS: This is a pleasant, 86-year-old gentleman who returns to the clinic for a four week follow up for chronic lower back pain. The patient was last seen here on 04/23/2022 and at that time he received bilateral lumbar trigger point injections. The patient did find this helpful, but he is struggling with bilateral gluteal and lumbar cramps. He does have a deep ache in his lower back. With activity, his pain is 10/10. 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 In review of his x-ray, patient does have degenerative disc disease and moderate facet arthritis throughout his lower lumbar spine. Medications include Coumadin, baclofen 10 mg q.h.s. and Icy Hot. The patient was on Mirapex in the past, and the patient states the combination of Mirapex and baclofen gave him great relief, but he has been out of both for some time. Patient's REVIEW OF SYSTEMS / PAST MEDICAL HISTORY / ALLERGIES and IMAGES have been reviewed and they are noted on the chart. PHYSICAL EXAM: VITAL SIGNS: Blood pressure 152/85, heart rate is 70. Temperature is 97.5. He is 5'9 , weighs 81 kg. GENERAL APPEARANCE: Pleasant, appropriate, no acute distress. FOCUSED EXAM - BACK: Range of motion is guarded in lateral rotation and flexion/extension. Compression along the lumbar facets of L3, L4, L5 reproduce patient's pain symptomatology. Paravertebral muscles are taut but non-spasmodic. No trigger points identified. Pain does radiating to gluteal folds bilaterally. MUSCULOSKELETAL: Some muscle atrophy noted bilateral lower extremities. Patient walks steadily and unassisted. Anterior tibialis slight weakness noted bilaterally. Extensors are intact. NEUROLOGICAL: Patient is neurologically intact. +1 bilateral patellar reflexes. DIAGNOSIS: Lumbar degenerative disc disease, lumbar spondylosis and restless leg syndrome. PLAN: We will restart Mirapex 0.5 mg q.h.s. and baclofen 10 mg q.h.s. After discussing with the patient, he would like to move forward with the #1 bilateral MBB of L2, L3 and L4, L5. We will get authorization to hold his Coumadin. Patient will be brought to the clinic for a follow up and he agrees to move forward.[facility] [id number] NoteCONSULTATION CONSULTATION DATE: 04/24/2022 HISTORY OF PRESENT ILLNESS: This is an 86-year-old gentleman returning to the clinic status post lumbar epidural steroid injection completed on 04/08/2022. The patient received 100% relief for two days. During that time, he was able to walk his dog further and longer and work on the leaves in his yard. After the initial two days, pain started to creep back to his baseline level. At rest, he is 1/10. With activity, he can get to 5/10, particularly to his right lower lumbar area. Occasionally, he will feel a sharp, stinging pain with standing and physical activity. Current medications include Mirapex 0.25 mg q.p.m. and Coumadin. He denies any new pain pattern at this time. Since the epidural, his left leg radicular pain has been completely mitigated and is ongoing. He does feel his right lower extremity is slightly weaker. Patient's REVIEW OF SYSTEMS / PAST MEDICAL HISTORY / ALLERGIES and IMAGES have been reviewed and they are noted on the chart. PHYSICAL EXAM: VITAL SIGNS: Blood pressure is 131/74. Heart rate is 63. Temperature is 97.7. He is 5'9 , weighs 79.3 kg. GENERAL IMPRESSION: Pleasant, appropriate, no acute distress. FOCUSED EXAM - BACK: Range of motion is functional in lateral rotation and flexion/extension. Paravertebral muscles are spasmodic with two trigger points identified. Compression of this area produces positive jump response and mimics patient's pain pattern. MUSCULOSKELETAL: Slight muscle atrophy noted to bilateral lower extremities and to anterior tibialis bilaterally. Extensors are intact. NEUROLOGICAL: Radicular sensory is intact. Negative polyneuropathy. +1 bilateral patellar and Achilles reflexes. DIAGNOSIS: Bilateral lumbar paravertebral spasms, lumbar spinal canal stenosis, lower back pain. PLAN: Will receive bilateral lumbar trigger point injections in the office, which does consent to. We will start him on baclofen 10 mg q.h.s. I did educate him on the use of a menthol heat rub in addition to a heat source. Patient states understanding. We will see him in three months' time unless otherwise indicated.[facility] [id number] NoteCONSULTATION PROCEDURE DATE: 04/24/2022 PREOPERATIVE DIAGNOSIS: Bilateral lumbar paravertebral spasms. POSTOPERATIVE DIAGNOSIS: Bilateral lumbar paravertebral spasms. PROCEDURE: Bilateral lumbar trigger point injections. Subsequent to obtaining informed consent, the patient was placed in the upright standing forward flexion position. Alcohol prep was used to sterilize the site. A 25 gauge needle with 0.125% Marcaine and 40 mg of Kenalog was dispersed into two locations. Needle was placed to rest inside the trigger zones. Negative heme. Medication was injected in each location in a fan-like pattern. Patient tolerated the procedure well, will be followed up in the office in three months' time.[facility] [id number] NoteCONSULTATION CONSULTATION DATE: 03/25/2022 CHIEF COMPLAINT: Bilateral leg pain, left greater than right. HISTORY OF PRESENT ILLNESS: This is a very pleasant, 86-year-old gentleman who is known to the Pain Clinic. The patient has cramping sensation, grabbing sensation into his legs bilaterally. The patient has a CT of his abdomen which also we are able to glean the lumbar spine. The patient has spinal canal stenosis. He states the pain, at times, gets severe to the point where he rates it as a 13/10. The pain is more noted in the evening and night. Sitting mitigates the pain. Standing, walking at times can mitigate and/or increase the pain as does transitioning. Randomly, the patient states he has episodes where he has severe gripping sensation into his legs bilaterally, radiating into his calves. The patient takes nutritional supplement, Boost. The patient has some tramadol, which he takes rarely. The patient is on Coumadin. The patient's PAST MEDICAL HISTORY / SURGICAL HISTORY / REVIEW OF SYSTEMS are noted on the chart, along with the MEDICATION LIST / ALLERGIES and the CT of the abdomen and lumbar spine, which was reviewed. The patient is status post right hip replacement in 2020. PHYSICAL EXAMINATION: GENERAL: Upon physical examination, this is a pleasant, cooperative gentleman, who does not appear to be in any acute distress. VITAL SIGNS: Stable at 139/73, with a heart rate of 59. At a height a 5'9 , the patient weighs 79 kg. FOCUSED EVALUATION: Frailty is noted in the patient's subcutaneous tissue. The patient has had ulcerations of his legs bilaterally; however, they have improved. Mentation is maintained. HEART: The patient is not orthopneic. LUNGS: Not labored breathing. ABDOMEN: Soft. BACK: The patient has tenderness along the posterior elements; however, not extreme. EXTREMITIES: Global decrease in muscle bulk, muscle density is noted in his upper and lower extremity. Tissue frailty is present. NEUROLOGICALLY: No overt clear cut radicular symptomatology. The patient has polyneuropathy of the lower extremities bilaterally. PSYCHIATRICALLY: Affect is appropriate. IMPRESSION: Restless leg, lumbar spinal canal stenosis, lumbar radiculitis, neuritis, lumbar arthrosis. PLAN: We will start the patient in Mirapex 0.25 mg q.p.m. The patient is to take the multivitamin regiment that he has been suggested, which he has forgotten about. The patient will be scheduled for a lumbar epidural steroid injection under fluoroscopy, at which time, he will also receive testosterone cypionate 150 mg IM. The patient understands and would like to proceed.[facility] [id number] Progress note Author Marisela Shaffer [facility] March 05, 2022 11:12am Note Date/Time March 05, 2022 11:12am [facility] [address] [place] [address] Wound Center Provider Note Signed Patient: Fani Chua MR#: [id number] : 1935 Acct:[id number] Age/Sex: 86 / M Copies to: NO FAMILY PHYSICIAN Marisela Shaffer APRN~ HPI Date of Visit Date of Visit: Date of Service: 03/05/2022 Time of Service: 11:06 Narrative HPI: 02/04/22 Te is an 86 year old male presenting to [facility] wound care program for an initial visit for eval and treatment of a traumatic wound to the right lower leg. He has been using honey gel on the area with a nonstick telfa bandage. He tells me that he had completed a course of Doxy for a staph infection to this area. I see no signs of infection today. He can return in 2 weeks and may very well be healed at that time. He will use vashe cleanser and collagen powder with a bandage. Healing will depend on the dressings being done as ordered as well as having a well balanced diet. 02/19/22 right leg wound looks stable, has a new injury to the left leg from the vacuum booth cleaner, honey sheet to both areas, 2 week appt 03/05/22 left leg healed, right leg has cellulitis from what he says was dry skinand this is distal to the current wounded area, oral doxycycline was escribed for 14 days, honey as before Subjective Pain Right Lower Medial Leg: Pain Description: Intermittent and Soreness Pain Intensity: 0 Wound/Ulcer History When did wound start?: January 13, 2022 right, 02/18/22 Left Mode of Arrival/ Residential Life Director: Personal vehicle Lives with:: Spouse Appetite Description: Within Normal Limits Who helps w/ dressing change?: Self Smoking Status: Former smoker PMFSH Vaccinated for COVID-19?: Yes Medical History (Updated 03/05/22 @ 11:11 by Marisela Shaffer APRN) Afib Bladder cancer Diabetes mellitus type 2, diet-controlled Pt doesn't take any meds Gout Prostate cancer Ulcer of right lower leg history of Warfarin anticoagulation Surgical History History of bladder surgery History of hip surgery left hip replaced History of prostatectomy S/P left rotator cuff repair Family History Father CAD (coronary artery disease) Mother CAD (coronary artery disease) Brother Bipolar 1 disorder COPD (chronic obstructive pulmonary disease) Grandparent Cancer Grandparent Diabetes Social History Smoking Status: Former smoker Tobacco Type: cigarettes Substance Use Type: Alcohol Substance Abuse Comment: 1-2 beers a day Grafts History of Graft History of Graft?: No Exam Physical Exam Vital Signs: Temp Pulse Resp BP O2 Del Method 97.5 F L 71 18 170/87 H Room Air 03/05/22 10:46 03/05/22 10:46 03/05/22 10:46 03/05/22 10:46 03/05/22 10:46 Const General: cooperative, healthy appearing, comfortable and no acute distress Nutritional Appearance: average body habitus Orientation: alert, awake and oriented x3 Lower/Upper Extremity Exam Vascular Exam-Edema Right Lower Extremity: Edema Degree: 1+ Edema Type: Pitting Vascular Exam-Pulses Monitor: Pulse Assessment Method: NIBP Right Dorsalis Pedis: Pulse Assessment Method: Palpation Right Posterior Tibial: Pulse Assessment Method: Palpation Left Dorsalis Pedis: Pulse Assessment Method: Palpation Left Posterior Tibial: Pulse Assessment Method: Palpation Objective Meds/Allergies Home Medications pantoprazole 40 mg tablet,delayed release 40 mg PO DAILY 01/19/19 [History Confirmed 03/05/22] gemfibrozil 600 mg tablet 600 mg PO DAILY 01/14/20 [History Confirmed 03/05/22] warfarin 5 mg tablet 7.5 mg PO 2XW 02/05/20 [History Confirmed 03/05/22] warfarin 5 mg tablet 10 mg PO 5XW 12/10/20 [History Confirmed 03/05/22] tramadol 50 mg tablet 50 mg PO Q6H PRN Pain 10/01/21 [History Confirmed 03/05/22] doxycycline hyclate 100 mg tablet 100 mg PO BID 14 days #28 tabs 03/05/22 [Rx] indomethacin 50 mg capsule 50 mg PO BID 03/05/22 [History Confirmed 03/05/22] Allergies amoxicillin Allergy (Severe, Verified 03/05/22 10:50) Swelling of Lip/Tongue/Throat bacitracin [From Neosporin ([id number])] Allergy (Verified 03/05/22 10:50) itch and rash neomycin [From Neosporin ([id number])] Allergy (Verified 03/05/22 10:50) itch and rash polymyxin B [From Neosporin ([id number])] Allergy (Verified 03/05/22 10:50) Rash and itch Wound/Ulcer Right Lower Medial Leg: Type: Traumatic (laceration) Thickness: Full Bed Appearance: Dried Exudate Percent of Wound Bed Granulated/Red: 0 Percent of Devitalized: 100 Length (cm): 0.8 Width (cm): 1.7 Depth (cm): 0.1 CM Sq: 1.360 Surrounding Tissue Appearance: Hyperpigmented Surrounding Tissue Temp: Warm Drainage Amount: Moderate Drainage Description: Serous Drainage Odor: No Odor Left Anterior Leg: Type: Skin Tear Thickness: Partial Length (cm): 0 Width (cm): 0 Depth (cm): 0 CM Sq: 0.000 Surrounding Tissue Appearance: Hyperpigmented Surrounding Tissue Temp: Warm Drainage Amount: None Drainage Odor: No Odor Procedures Time Out: 2 Patient Identifiers, Correct Patient, Correct Side/Site, Correct Procedure and Safety Issues Reviewed Procedure: The right leg wound was anesthetized with topical 2% lidocaine gel. A forcep was used to perform debridement for the removal of 1sq cm of devitalized tissue consisting of skin and slough and dried exudate. Debridement was down to healthy bleeding tissue. Estimated blood loss was minimal. Hemostasis was achieved by applying pressure. The right leg wound now appears 80% pink and redand the size remains the same. The patient tolerated well with minimal pain andso more lidocaine was applied. Results Height: 5 ft 9 in Weight: 78.018 kg Body Mass Index: 25.4 Assessment/Plan Assessment/Plan (1) Traumatic wound: Assessment/Problem Details: rle Status: Acute (2) Skin tear of left lower leg without complication: Qualifiers: Encounter type: initial encounter Qualified Code(s): S81.812A - Laceration without foreign body, left lower leg, initial encounter Code(s): S81.812A - Laceration without foreign body, left lower leg, initial encounter Status: Chronic (3) Thinning of skin: Code(s): R23.4 - Changes in skin texture Status: Chronic (4) At high risk for altered skin integrity: Assessment/Problem Details: d/t thin skin d/t age and blood thinners Code(s): Z91.89 - Other specified personal risk factors, not elsewhere classified Status: Chronic Time spent with patient Time Spent With Patient (min): 20 Dictated By: Marisela Shaffer APRN DD/ 1106 Signed By: <Electronically signed by BENJI Shaffer> 03/05/22 1112 [facility] Work Phone: [phone]) 881-417509-07-2022 Progress note Author Marisela Shaffer [facility] February 19, 2022 10:32am Note Date/Time February 19, 2022 10:32am [facility] [address] [place] [address] Wound Center Provider Note Signed Patient: Fani Chua MR#: [id number] : 1935 Acct:[id number] Age/Sex: 86 / M Copies to: NO FAMILY PHYSICIAN Marisela Shaffer APRN~ HPI Date of Visit Date of Visit: Date of Service: 02/19/2022 Time of Service: 10:28 Narrative HPI: 02/04/22 Te is an 86 year old male presenting to [facility] wound care program for an initial visit for eval and treatment of a traumatic wound to the right lower leg. He has been using honey gel on the area with a nonstick telfa bandage. He tells me that he had completed a course of Doxy for a staph infection to this area. I see no signs of infection today. He can return in 2 weeks and may very well be healed at that time. He will use vashe cleanser and collagen powder with a bandage. Healing will depend on the dressings being done as ordered as well as having a well balanced diet. 02/19/22 right leg wound looks stable, has a new injury to the left leg from the vacuum booth cleaner, honey sheet to both areas, 2 week appt Subjective Pain Right Lower Medial Leg: Pain Description: Tender Pain Intensity: 0 Wound/Ulcer History When did wound start?: January 13, 2022 right, 02/18/22 Left Mode of Arrival/ Residential Life Director: Personal vehicle Lives with:: Spouse Appetite Description: Within Normal Limits Who helps w/ dressing change?: Self Smoking Status: Former smoker PMFSH Vaccinated for COVID-19?: Yes Medical History (Updated 02/19/22 @ 10:31 by Marisela Shaffer APRN) Afib Bladder cancer Diabetes mellitus type 2, diet-controlled Pt doesn't take any meds Gout Prostate cancer Ulcer of right lower leg history of Warfarin anticoagulation Surgical History History of bladder surgery History of hip surgery left hip replaced History of prostatectomy S/P left rotator cuff repair Family History Father CAD (coronary artery disease) Mother CAD (coronary artery disease) Brother Bipolar 1 disorder COPD (chronic obstructive pulmonary disease) Grandparent Cancer Grandparent Diabetes Social History Smoking Status: Former smoker Tobacco Type: cigarettes Substance Use Type: Alcohol Substance Abuse Comment: 1-2 beers a day Grafts History of Graft History of Graft?: No Exam Physical Exam Vital Signs: Temp Pulse Resp BP 97.2 F L 52 L 20 141/66 H 02/19/22 10:14 02/19/22 10:14 02/19/22 10:14 02/19/22 10:14 Const General: cooperative, healthy appearing, comfortable and no acute distress Nutritional Appearance: average body habitus Orientation: alert, awake and oriented x3 Lower/Upper Extremity Exam Vascular Exam-Edema Right Lower Extremity: Edema Type: None Vascular Exam-Pulses Monitor: Pulse Assessment Method: NIBP Right Dorsalis Pedis: Pulse Assessment Method: Palpation Right Posterior Tibial: Pulse Assessment Method: Palpation Left Dorsalis Pedis: Pulse Assessment Method: Palpation Left Posterior Tibial: Pulse Assessment Method: Palpation Objective Meds/Allergies Home Medications pantoprazole 40 mg tablet,delayed release 40 mg PO DAILY 01/19/19 [History Confirmed 02/04/22] gemfibrozil 600 mg tablet 600 mg PO DAILY 01/14/20 [History Confirmed 02/04/22] warfarin 5 mg tablet 7.5 mg PO 2XW 02/05/20 [History Confirmed 02/04/22] warfarin 5 mg tablet 10 mg PO 5XW 12/10/20 [History Confirmed 02/04/22] tramadol 50 mg tablet 50 mg PO Q6H PRN Pain 10/01/21 [History Confirmed 02/04/22] Allergies amoxicillin Allergy (Severe, Verified 02/04/22 09:28) Swelling of Lip/Tongue/Throat bacitracin [From Neosporin ([id number])] Allergy (Verified 02/04/22 09:28) itch and rash neomycin [From Neosporin ([id number])] Allergy (Verified 02/04/22 09:28) itch and rash polymyxin B [From Neosporin ([id number]-flz-[id number])] Allergy (Verified 02/04/22 09:28) Rash and itch Wound/Ulcer Right Lower Medial Leg: Type: Traumatic (laceration) Thickness: Full Bed Appearance: Beefy Red and Reliance Percent of Wound Bed Granulated/Red: 100 Percent of Devitalized: 0 Length (cm): 0.5 Width (cm): 0.5 Depth (cm): 0.1 CM Sq: 0.250 Surrounding Tissue Appearance: Hyperpigmented Surrounding Tissue Temp: Warm Drainage Amount: Moderate Drainage Description: Serous Drainage Odor: No Odor Left Anterior Leg: Type: Skin Tear Thickness: Partial Bed Appearance: Beefy Red Length (cm): 1.8 Width (cm): 1.3 Depth (cm): 0.1 CM Sq: 2.340 Surrounding Tissue Appearance: Reliance Surrounding Tissue Temp: Warm Drainage Amount: Small Drainage Description: Serous Assessment/Plan Assessment/Plan (1) Traumatic wound: Assessment/Problem Details: rle Status: Acute (2) Skin tear of left lower leg without complication: Qualifiers: Encounter type: initial encounter Qualified Code(s): S81.812A - Laceration without foreign body, left lower leg, initial encounter Code(s): S81.812A - Laceration without foreign body, left lower leg, initial encounter Status: Acute (3) Thinning of skin: Code(s): R23.4 - Changes in skin texture Status: Chronic (4) At high risk for altered skin integrity: Assessment/Problem Details: d/t thin skin d/t age and blood thinners Code(s): Z91.89 - Other specified personal risk factors, not elsewhere classified Status: Chronic Time spent with patient Time Spent With Patient (min): 15 Dictated By: Marisela Shaffer APRN DD/ [id number] Signed By: <Electronically signed by BENJI Shaffer> 02/19/22 1032 [facility] Work Phone: [phone]) 643-755308-23-2022 Progress note Author Marisela Shaffer [facility] February 04, 2022 9:43am Note Date/Time February 04, 2022 9: 43am [facility] [address] [place] [address] Wound Center Provider Note Signed Patient: Fani Chua MR#: [id number] : 1935 Acct:[id number] Age/Sex: 86 / M Copies to: NO FAMILY PHYSICIAN Marisela Shaffer APRN~ HPI Date of Visit Date of Visit: Date of Service: 02/04/2022 Time of Service: 09:38 Narrative HPI: 02/04/22 Te is an 86 year old male presenting to [facility] wound care program for an initial visit for eval and treatment of a traumatic wound to the right lower leg. He has been using honey gel on the area with a nonstick telfa bandage. He tells me that he had completed a course of Doxy for a staph infection to this area. I see no signs of infection today. He can return in 2 weeks and may very well be healed at that time. He will use vashe cleanser and collagen powder with a bandage. Healing will depend on the dressings being done as ordered as well as having a well balanced diet. Subjective Pain Right Lower Medial Leg: Pain Description: Tender Pain Intensity: 2 Wound/Ulcer History When did wound start?: January 13, 2022 Mode of Arrival/ Residential Life Director: Personal vehicle Lives with:: Spouse Appetite Description: Within Normal Limits Who helps w/ dressing change?: Self Smoking Status: Former smoker PMFSH Vaccinated for COVID-19?: Yes Medical History (Updated 02/04/22 @ 09:39 by Marisela Shaffer APRN) Afib Bladder cancer Diabetes mellitus type 2, diet-controlled Pt doesn't take any meds Gout Prostate cancer Ulcer of right lower leg history of Warfarin anticoagulation Surgical History History of bladder surgery History of hip surgery left hip replaced History of prostatectomy S/P left rotator cuff repair Family History Father CAD (coronary artery disease) Mother CAD (coronary artery disease) Brother Bipolar 1 disorder COPD (chronic obstructive pulmonary disease) Grandparent Cancer Grandparent Diabetes Social History Smoking Status: Former smoker Tobacco Type: cigarettes Substance Use Type: Alcohol Substance Abuse Comment: 1-2 beers a day Grafts History of Graft History of Graft?: No Exam Physical Exam Vital Signs: Temp Pulse Resp BP 97.7 F 76 18 150/71 H 02/04/22 09:25 02/04/22 09:25 02/04/22 09:25 02/04/22 09:25 Const General: cooperative, healthy appearing, comfortable and no acute distress Nutritional Appearance: average body habitus Orientation: alert, awake and oriented x3 Lower/Upper Extremity Exam Vascular Exam-Edema Right Lower Extremity: Edema Type: None Vascular Exam-Pulses Monitor: Pulse Assessment Method: NIBP Right Dorsalis Pedis: Pulse Assessment Method: Palpation Objective Meds/Allergies Home Medications pantoprazole 40 mg tablet,delayed release 40 mg PO DAILY 01/19/19 [History Confirmed 02/04/22] gemfibrozil 600 mg tablet 600 mg PO DAILY 01/14/20 [History Confirmed 02/04/22] warfarin 5 mg tablet 7.5 mg PO 2XW 02/05/20 [History Confirmed 02/04/22] warfarin 5 mg tablet 10 mg PO 5XW 12/10/20 [History Confirmed 02/04/22] tramadol 50 mg tablet 50 mg PO Q6H PRN Pain 10/01/21 [History Confirmed 02/04/22] Allergies amoxicillin Allergy (Severe, Verified 02/04/22 09:28) Swelling of Lip/Tongue/Throat bacitracin [From Neosporin ([id number]-zdw-[id number])] Allergy (Verified 02/04/22 09:28) itch and rash neomycin [From Neosporin (ahl-jim-echtb)] Allergy (Verified 02/04/22 09:28) itch and rash polymyxin B [From Neosporin (nfw-zlj-vaagm)] Allergy (Verified 02/04/22 09:28) Rash and itch Wound/Ulcer Right Lower Medial Leg: Type: Traumatic (laceration) Thickness: Full Bed Appearance: Beefy Red and Reliance Percent of Wound Bed Granulated/Red: 100 Percent of Devitalized: 0 Length (cm): 0.5 Width (cm): 0.8 Depth (cm): 0.1 CM Sq: 0.400 Surrounding Tissue Appearance: Hyperpigmented Surrounding Tissue Temp: Warm Drainage Amount: Moderate Drainage Odor: No Odor Assessment/Plan Assessment/Plan (1) Traumatic wound: Assessment/Problem Details: rle Status: Acute Time spent with patient Time Spent With Patient (min): 15 Dictated By: Marisela Shaffer APRN DD/ 0938 Signed By: <Electronically signed by BENJI Shaffer> 02/04/22 0943 [facility] Work Phone: [phone]) [phone] NoteCONSULTATION CONSULTATION DATE: 12/31/2021 HISTORY OF PRESENT ILLNESS: This is a very pleasant, 86-year-old gentleman, who is known to myself remotely from a different practice. The patient is a very active, very vital, 86-year-old gentleman who takes care of his . The patient has chronic low back pain. The patient recently had also his left hip replacement in December of 2020. The patient currently reports having bilateral low back pain into his buttocks bilaterally. The patient also complains of nocturnal cramping and restless legs at night. The patient describes the pain, at times, being a sharp achy pain. The patient is a very active individual who enjoys gardening. Sitting mitigates the pain. Standing, walking, activities aggravate the pain. The patient states the pain reaches up to a 10/10 and considers himself to have a high tolerance. The patient has been a very active individual. The patient also describes having significant weakness in his legs to the point where he has to use his arms to be able to climb up the stairs and also has to perform a tripod posture to be able to function and lift. The patient has significant muscle atrophy. The patient states he could walk the distance of approximately 2-3 football arceo; however, subsequent to that, he has significant difficulty in walking. The patient has a CT of the lumbar spine which was reviewed in office today. PHYSICAL EXAMINATION: GENERAL: Upon physical examination, this is a very pleasant, cooperative, vital, 86-year-old gentleman, who does not appear to be in any acute distress. VITAL SIGNS: Stable at 157/85 with a heart rate of 83. At a height of 5'9 , the patient weighs 77 kg. the patient has lost axial height. HEAD: Atraumatic, normocephalic. NECK: Crepitus is noted. HEART: Regular rate. LUNGS: Normal expansion. The patient does control his breathing and does have to take expansive breaths upon conversation. ABDOMEN: Non-distended. BACK: Loss of axial height is noted. Posterior elements - Slight tenderness is present along the L5-S1 junction. Thoracolumbar paravertebral spasming is noted. EXTREMITIES: Global atrophy is present of the lower extremities bilaterally. Atrophic changes are present along the patient's tissue and history of vascular insufficiency is present. MUSCULOSKELETAL: Global atrophy. Glutes are weak; however, functional. The patient uses his arms to be able to stand up. The iliopsoas muscle is also weak and 4/5 bilaterally. Anterior tibial is 4+. Gastrocsoleus is also intact; however, weak. This appears to be secondary, as a global phenomenon. NEUROLOGICALLY: No clear cut radicular symptomatology is noted. Polyneuropathy is present in his lower extremities bilaterally. IMPRESSION: Current working diagnosis on the patient is significant muscle atrophy, sarcopenia, lumbar spinal canal stenosis, lumbar degenerative disc disease, restless leg syndrome, nocturnal claudication. PLAN: We will get a flexion/extension x-ray of the lumbar spine. The patient has been instructed to take a multivitamin on a b.i.d. basis. The patient has also been encouraged to restart his supplemental drinks such as Boost or Ensure as a high protein. The patient will be scheduled for a lumbar epidural steroid injection, at which time we will also give the patient testosterone cypionate 150 mg IM. Depending on how the patient responds, we will consider the possibility of adding Mirapex for the restless leg. 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 We shall look to get authorization for its stopping prior to the procedure. The patient understands and would like to proceed. CC: Trey ال[facility] Signed and Approved by: DR KRISTNI MCGUIRE . 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 At this point I think his right hip replacement is doing very well. However, as he describes his symptoms it sounds that he is having more neurogenic type claudication symptoms/sciatica type symptoms that have been progressing over the past several months. At this point, I will see him back in 3 months with x-rays of his right hip. He tells me from now until then he is going to get in touch either with Dr. Henry Cade to discuss pain management options with his symptoms or get in touch with a surgeon to discuss surgical options for his back. I informed him that he can give us a call at any time to discuss anything further, be seen sooner, or recommendations for spine surgeon. 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 At this time I think that he has some soft tissue healing that needs to continue and given his age and the injury has likely lost some strength in that left thigh. We discussed getting him set up with physical therapy which we did send a referral today for some quad strengthening. He will plan to see them soon as possible and work with them until he goes to [place] for the winter. While in [place] he will do his own home physical therapy. In the meantime he will also start taking Tylenol as needed for any discomfort. Due to his warfarin use for his A. fib we are unable to prescribe pain any oral anti-inflammatorie s to help with any soft tissue swelling in the left thigh. Plan to see him back sometime in September when he returns from [place]. [employer] Other 10-05-2021 Evaluation note* Encounter Date Diagnosis Assessment Notes Treatment Notes Treatment Clinical Notes Mar, Arthritis of right hip (ICD-10 - M16.11) Patient is progressing well. Continue physical therapy exercises and GUERITA precautions. Instructed patient to call with any questions or concerns. 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 Chua is an 85yo M with a h/o paroxysmal atrial fibrillation on Coumadin, type II diabetes mellitus, prostate cancer s/p prostatectomy, gout, and severe aortic stenosis. Pt presents today for his 1 year visit s/p - 34XL Evolut R, predil 22mm ball 03/02/2020. Post procedure course uneventful. Pt had right hip surgery 2 months ago, no other hospitalizations. * denies fever, chills, night sweats, CP, SOB * confirms some MONIQUE, likely d/t deconditioning * Symptoms: denies lower extremity edema, stable dyspnea on exertion, improved fatigue, stable exercise intolerance, denies orthopnea and denies paroxysmal nocturnal dyspnea. Associated symptoms include no chest pain, no syncope and no palpitations. [id number]HNX Dominick [address] [place] Work Phone: Chief complaint Narrative - Reported* FANI CHUA is being seen for a cardiovascular evaluation . 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 * A telephone visit (audio only) between the patient (at the originating site) and the provider (at the distant site) was utilized to provide this telehealth service. [id number]WKW Dominick [address] [place] Work Phone: Discharge summary Author Isai May [facility] June 06, 2023 4:21pm Note Date/Time June 06, 2023 3:57pm [facility] [address] [place] [address] Discharge Summary Signed Patient: Fani Chua MR#: [id number] : 1935 Acct:[id number] Age/Sex: 88 / M Adm Date: 3 Loc: 4N Room: [address] [place] [address]: Isai May DO Copies to: Bonita Kingsley MD, [facility] DO María Harmon MD~ Providers Date of Discharge: 06/06/23 Discharging Provider: Isai May Primary Care Provider: María Anderson Consults: 06/05/23 11:32 Consult to Neurology Routine 06/05/23 18:31 Consult to Cardiology Routine Discharge Diagnosis Final Diagnosis Final Discharge Diagnosis: 1. Acute stroke 2. Dizziness 3. Abnormal gait 4. Chronic atrial fibrillation 5. Chronic anticoagulation with Coumadin 6. Type II myocardial infarction 7. Unspecified intraventricular block 8. Blurred vision 9. Spinal stenosis Summary Hospital Course Hospital course: This patient is an 88-year-old male in relatively good health with a history of atrial fibrillation. He presented to the emergency department on 06/04/2023 with notable visual changes and dizziness. At times this was described as a double vision but more so a generalized blurriness within the lower visual arceo. Described accompanying vertiginous symptoms as well. No loss of consciousness. This started 7 PM the day prior and persisted through the next day prompting his presentation to the ER. A full stroke workup was obtained including noncontrast head CT and angiography with CT of head and neck. No acute process was noted. He was admitted to the hospitalist service. No significant hypertensive response was noted on presentation with systolic blood pressure holding in the 140s at its highest. His Coumadin was therapeuticon admission (3.0) and remained so throughout his stay. EKG revealed atrial fibrillation with a unspecified intraventricular block. Rate controlled in the 80s. No significant change from most recent EKG in March of this year. His high-sensitivity troponin was notably elevated 79.2 and peaked at 98.3 pg/mL. This down trended on sequential lab draws. The patient had a complete lack of palpitations, chest pain or any shortness of breath. The patient's neurologic symptoms were consistent with a stroke to the posteriorregion as he also had some imbalance. Patient has severe claustrophobia preventing a closed MRI. Additionally his MRI contingent aortic valve replacement done a few years ago was of concern. For close MRI he would need full general anesthesia and for this reason it was deferred. Essentially his diagnosis of stroke is a clinical one. He did receive 324 mg of aspirin x 1 however antiplatelet therapy was not recommended by neurology going forward given his chronic Coumadin use. All of his neurologic symptoms including his vertiginous and visual ones resolved the morning following his admission. Echocardiogram, initially ordered for cardioembolic stroke rule, revealed decrease in ejection fraction 40 to 45% and moderate to severe inferior wall hypokinesis . These are reported as new findings when compared to echocardiogram in 2020 and thus prompted a cardiology consult prior to discharge. He had a fair degree of ectopy burden on telemetry but again remained rate controlled and asymptomatic for his chronic A-fib. Cardiology didcleared the patient for discharge and follow-up with his regular evp. Low magnesium was repleted. High intensity statin was prescribed on discharge given his new stroke diagnosis. This can likely be tapered off as his current cholesterol panel will indicates good control. His ABCD2 score (technically only for for TIAs, patient's symptoms lasted a bit over 24 hours) is only 3. Cardiology did recommend the continuation of baby aspirin however despite neurology's recommendation against this. This could be considered on a temporary basis with monitoring for bleeding however I will defer this decision to his PCP going forward. Patient is feeling quite well, has stable vital signs, no further cardiac or neurologic symptoms and will be discharged home today 06/06/2023. Physical Examination: GENERAL APPEARANCE: Alert, up in bed AAOx3 HEENT: NCAT, MMM NECK: Neck soft w/o masses, no JVD CARDIAC: Normal S1 and S2. No S3, S4 or murmurs. LUNGS: Clear to auscultation bilaterally. no wheeze/rhonchi/rales ABDOMEN: Positive bowel sounds. Soft, nontender. No guarding or signs of an acute abdomen MUSCULOSKELETAL: No joint erythema or tenderness. EXTREMITIES: No clubbing, cyanosis or edema PSYCHIATRIC: Appropriate mood and affect 40 minutes were spent coordinating the discharge of this patient. Time Spent with Patient Time spent providing/coordinating discharge services (# min): 40 Diagnostic Studies Completed and Pending Studies Pending studies at discharge: 06/05/23 12:06 PC pacemaker analysis sing Routine 06/07/23 05:00 Prothrombin Time INR IN AM 06/08/23 05:00 Prothrombin Time INR IN AM 06/09/23 05:00 Prothrombin Time INR IN AM 06/10/23 05:00 Prothrombin Time INR IN AM 06/11/23 05:00 Prothrombin Time INR IN AM 06/12/23 05:00 Prothrombin Time INR IN AM 06/13/23 05:00 Prothrombin Time INR IN AM 06/14/23 05:00 Prothrombin Time INR IN AM Labs on day of discharge: 06/06/23 05:16: PT 25.0 H, INR 2.2 06/06/23 05:16: Magnesium 1.6 L 06/05/23 18:39: Total Creatine Kinase 56, Troponin I High Sens 55.4 H* Exam Physical Exam Vital Signs: Temp Pulse Resp BP Pulse Ox O2 Del Method 97.3 F L 65 19 104/67 94 L Room Air 06/06/23 12:00 06/06/23 12:00 06/06/23 12:00 06/06/23 12:00 06/06/23 12:00 06/06/23 12:00 Discharge Plan Discharge Plan Patient Disposition: Home Activity: No Activity Restriction Diet: Regular Prescriptions: New atorvastatin 80 mg tablet 80 mg PO DAILY Qty: 30 0RF Continued tramadol 50 mg Tablet 50 mg PO Q6H PRN (Reason: Pain) pantoprazole 40 mg tablet,delayed release (DR/EC) 40 mg PO QHS Patient Comments: TAKE 1 TABLET BY MOUTH ONCE DAILY gemfibrozil 600 mg tablet 600 mg PO QHS warfarin 5 mg tablet 10 mg PO 2XW Rx Instructions: takes 10mg on and thursday, and 7.5mg every other day Other Ambulatory Orders: Prothrombin Time INR (Routine) Timeframe: [id number] Location: Determined by Patient Ordered By: Isai May Follow Up: [facility] [Outside] (Call office on Thursday to schedule follow-up with Neurology. ) Bonita Kingsley MD [Active Staff] - (Call office on Thursday to schedule follow-up with Cardiology in 3 weeks. ) María Anderson MD [Primary Care Provider] - 06/16/23 1:30 pm (Follow-up with your Primary Care Provider, call office to reschedule if needed. ) Documented By: Isai May DO 06/06/23 15 53 Signed By: <Electronically signed by Isai May, > 06/06/23 1621 [facility] Work Phone: Discharge summary Author Ashley Merritt [facility] December 23, 2023 1:04pm Note Date/Time December 23, 2023 1:04 pm [facility] [address] [place] [address] Discharge Summary Signed Patient: Fani Chua MR#: [id number] : 1935 Acct:[id number] Age/Sex: 88 / M Adm Date: 4 Loc: Room: [address] [place] [address]: Ashley Merritt MD Copies to: MD Ashley Jansen MD~ Providers Date of Discharge: 12/23/23 Discharging Provider: Ashley Merritt Primary Care Provider: María Anderson Consults: 12/21/23 20:53 Consult to Case Management Routine Comment: CM Reason for Consult: [employer]-General Consult to Occupational Therapy Routine Comment: Physician Instructions: Consult to OT for:: Evaluation and Treat Consult to Physical Therapy Routine Comment: Physician Instructions: Consult to PT for:: Evaluation and Treat 12/22/23 09:00 Consult to Physiatry Routine Comment: Consulting Provider: [facility] Reason For Exam: Rehab eval/post acute care needs Has Provider Been Notified: Yes Date of Notification: 12/22/23 Time of Notification: 09:06 12/22/23 09:32 Consult to Orthopedic Surgery Routine Comment: sent from charge phone Consulting Provider: [facility] Reason For Exam: Severe RLE pain/patella fracture Has Provider Been Notified: Yes Date of Notification: 12/22/23 Time of Notification: 09:57 Discharge Diagnosis (1) Right patella fracture: (2) Right knee injury: (3) Knee pain: (4) Fall from slip, trip, or stumble: (5) Pain: (6) Impaired mobility and activities of daily living: Final Diagnosis Final Discharge Diagnosis: Status post recent mechanical fall complicated by right patella fracture and right knee hemarthrosis, status post arthrocentesis draining 75 cc Atrial fibrillation on Coumadin therapy, Status post TAVR without underlying coronary artery disease Peripheral arterial disease on aspirin therapy which we will continue History of previous TIA COPD not on home oxygen, albuterol initiated Summary Hospital Course Hospital course: 88 years old male who was discharged on December 19 after the fall and was found to have right patella fracture, presented from home due to unbearable pain. Patient was not able to ambulate and function at home, he was complaining of severe pain in the whole right lower extremity. Patient has been taking Coumadin therapy due to underlying atrial fibrillation. Repeated x-ray showed knee effusions with stable patella fracture. He did not have any other neurovascular dysfunction. Patient pain was better controlled with opioid medications. Orthopedic was consulted and patient underwent arthrocentesis draining 75 cc of bloody drainage. Recommended brace. He was eval to by PT OT and discharged to rehabilitation for further care. As noted above patient did have hemarthrosis due to the fall and patella fracture while being on Coumadin therapy. We did reach to orthopedic team to inquire when Coumadin can be restarted. Physical exam: General -awake, alert, oriented ?3, not in acute distress, remains on room air, saturating mid 90s Cardiovascular -S1 with S2, no murmurs, no rubs, no gallops Pulmonary -diminished breath sounds with slight expiratory wheezing on expiration Gastrointestinal - abdomen is soft, nondistended, nontender, bowel sounds positive, there is no rigidity, no rebound Extremities -trace edema right lower extremity more than left Neurological -no focal neurological dysfunction noted The patient CARE and further plan was discussed with the patient. All questionsanswered. Patient expressed understanding and was discharged to rehabilitation in a stable condition. The patient was given written and verbal instructions. The recommendations were made to follow-up as outpatient within one week.The patient was informed if his symptoms get worse to go back to emergency room or call his primary care physician office. Time Spent with Patient Time spent providing/coordinating discharge services (# min): 25 Discharge Plan Discharge Plan Patient Disposition: Rehab [facility] Activity: No Activity Restriction Diet: Regular Additional Instructions: Rehab to manage -Full code -Ortho assessment per routine: R Patella fx -Knee immobilizer or hinge brace with ambulation -Ortho rec's: Orthopedic surgery discharge instructions Continue all precautions from the hospital. Your knee should remain in the brace for any immobilization. Any weightbearing activities. Knee must be fullyextended and in brace. Continue medications as prescribed at hospital. Continue therapy exercises as instructed. You should also maintain appropriate protein intake and I do recommend a supplement, such as a boost shake, daily which can help with your healing. Your follow-up should be scheduled in Dr. Morales's office for 3 weeks for x-rays and to start outpatient therapy. Call office with any questions or concerns. Dr. Roly Morales [facility] [address] [place] [address] [place] [address] Incentive spirometry every hour while awake Prescriptions: New albuterol sulfate 90 mcg/actuation HFA aerosol inhaler 2 inh inhalation Q4HR PRN (Reason: shortness of breath or wheezing) Qty: 8.5 0RF sennosides [Senokot] 8.6 mg tablet 8.6 mg PO BID PRN (Reason: constipation) Qty: 60 0RF polyethylene glycol 3350 [Miralax] 17 gram/dose powder 8.5 g PO DAILY Qty: 119 0RF acetaminophen 500 mg Tablet 1,000 mg PO Q6H PRN (Reason: Fever Or Pain) Qty: 0 0RF Continued aspirin [Adult Aspirin Regimen] 81 mg tablet,delayed release (DR/EC) 81 mg PO DAILY atorvastatin 80 mg tablet 40 mg PO DAILY magnesium oxide 400 mg magnesium tablet 400 mg PO DAILY Qty: 30 0RF pantoprazole 40 mg tablet,delayed release (DR/EC) 40 mg PO QHS Patient Comments: TAKE 1 TABLET BY MOUTH ONCE DAILY warfarin 5 mg tablet 7.5 mg PO DAILY Rx Instructions: 7.5mg every day Changed oxycodone 5 mg Tablet 5 mg PO Q4H PRN (Reason: Severe Pain) 3 Days Qty: 10 0RF Discontinued tramadol 50 mg Tablet 50 mg PO Q6H PRN (Reason: Pain) Follow Up: Roly Morales DO [Active Staff] - Exam Physical Exam Vital Signs: Temp Pulse Resp BP Pulse Ox O2 Del Method 36.9 C 69 17 126/79 95 Room Air 12/23/23 11:48 12/23/23 11:48 12/23/23 11:48 12/23/23 11:48 12/23/23 11:48 12/23/23 11:48 Diagnostic Studies Completed and Pending Studies Pending studies at discharge: 12/24/23 05:00 Prothrombin Time INR IN AM 12/25/23 05:00 Prothrombin Time INR IN AM 12/26/23 05:00 Prothrombin Time INR IN AM 12/27/23 05:00 Prothrombin Time INR IN AM 12/28/23 05:00 Prothrombin Time INR IN AM 12/29/23 05:00 Prothrombin Time INR IN AM 12/30/23 05:00 Prothrombin Time INR IN AM 12/31/23 05:00 Prothrombin Time INR IN AM 01/01/24 05:00 Prothrombin Time INR IN AM 01/02/24 05:00 Prothrombin Time INR IN AM 01/03/24 05:00 Prothrombin Time INR IN AM 01/04/24 05:00 Prothrombin Time INR IN AM 01/05/24 05:00 Prothrombin Time INR IN AM 01/06/24 05:00 Prothrombin Time INR IN AM Labs on day of discharge: 12/23/23 04:36: PT 15.2 H, INR 1.3 Documented By: Ashley Merritt MD 12/23/23 1259 Signed By: <Electronically signed by Ashley Merritt MD> 12/23/23 1304 [facility] Work Phone: Discharge summary Author Bright Lopez [facility] February 27, 2024 5:08pm Note Date/Time February 27, 2024 5:08pm [facility] [address] [place] [address] Discharge Summary Signed Patient: Fani Chua MR#: [id number] : 1935 Acct:[id number] Age/Sex: 88 / M Adm Date: 4 Loc: Room: [address] [place] [address]: Bright Lopez MD Copies to: MD María Abrams MD~ Providers Date of Discharge: 02/27/24 Discharging Provider: Bright Lopez Primary Care Provider: María Anderson Consults: 02/26/24 16:06 Consult to Occupational Therapy Routine Comment: Physician Instructions: Consult to OT for:: Evaluation and Treat Consult to Physical Therapy Routine Comment: Physician Instructions: Consult to PT for:: Evaluation and Treat Discharge Diagnosis (1) Dysequilibrium: (2) Subtherapeutic international normalized ratio (INR): (3) History of TIA (transient ischemic attack): Final Diagnosis Final Discharge Diagnosis: As above Summary Hospital Course Hospital course: Mr. Chua is an 88yo M with PMH of permanent A-fib on Coumadin, aortic stenosis status post TAVR, history of TIA and recent patellar fracture, prostate and bladder cancer who presents to the emergency department with intermittent episodes of disequilibrium and fall. Patient was in his normal state of health and just continue to have episodes of shaking and disorientation and disequilibrium, which is occasionally positional. Initial infectious, cardiac and neurologic workup was largely unremarkable. Patient was mildly subtherapeutic on his INR. He had no neurologic deficits. He was evaluated by physical and Occupational Therapy. Vitamin B12 was borderline low and thus he received IM B12 shot. Otherwise, patient was feeling well. Given his lack of neurologic symptoms, he was recommended for further vestibular PT as an outpatient. He was given vestibular exercises for discharge and told to follow-up with his primary care physician. Time Spent with Patient Time spent providing/coordinating discharge services (# min): 35 Discharge Plan Discharge Plan Patient Disposition: Home Activity: No Activity Restriction Diet: Regular Instructions: Vestibular Exercises, Know your Meds Prescriptions: Continued aspirin [Adult Aspirin Regimen] 81 mg tablet,delayed release (DR/EC) 81 mg PO DAILY atorvastatin 80 mg tablet 40 mg PO DAILY acetaminophen 500 mg Tablet 1,000 mg PO Q6H PRN (Reason: Fever Or Pain) Qty: 0 0RF warfarin 5 mg tablet 7.5 mg PO DAILY 30 Days Qty: 45 0RF Rx Instructions: START TODAY 12/23/23 pantoprazole 40 mg tablet,delayed release (DR/EC) 40 mg PO QHS Patient Comments: TAKE 1 TABLET BY MOUTH ONCE DAILY Macular Vitamin 500-5-1 mcg-mg-mg tablet 1 tab PO DAILY Follow Up: María Anderson MD [Primary Care Provider] - Exam Physical Exam Vital Signs: Temp Pulse Resp BP Pulse Ox O2 Del Method 97.9 F 61 18 152/79 H 93 L Room Air 02/27/24 15:42 02/27/24 15:42 02/27/24 15:42 02/27/24 15:42 02/27/24 15:42 02/27/24 15:42 Narrative: Constitutional: Elderly WM, resting in bed comfortably HEENT: Moist mucous membranes, neck supple Cardiovascular: RRR, no M/R/G, normal S1 and S2, no JVD Respiratory: Lungs clear to auscultation bilaterally, no wheezes, rales or rhonchi GI: Soft, NTND, normoactive bowel sounds : Deferred Neuro: AAO x3, no focal deficits. CN III-XII grossly intact Extremities: No clubbing, cyanosis or edema. Patient with scar present over theright knee from previous fall, appears to be well-healing at this time. Strength in the bilateral lower extremities slightly weakened compared to the upper extremities, more like 4+/5. Bilateral upper extremities with strength 5/5 Psych: Patient calm, cooperative and conversant Diagnostic Studies Completed and Pending Studies Pending studies at discharge: 02/26/24 16:17 [facility] echo transthoracic Routine 02/28/24 05:00 Prothrombin Time INR IN AM Complete Blood Count Auto Diff IN AM 02/29/24 05:00 Prothrombin Time INR IN AM Complete Blood Count Auto Diff IN AM 03/01/24 05:00 Prothrombin Time INR IN AM 03/02/24 05:00 Prothrombin Time INR IN AM 03/03/24 05:00 Prothrombin Time INR IN AM 03/04/24 05:00 Prothrombin Time INR IN AM 03/05/24 05:00 Prothrombin Time INR IN AM 03/06/24 05:00 Prothrombin Time INR IN AM 03/07/24 05:00 Prothrombin Time INR IN AM 03/08/24 05:00 Prothrombin Time INR IN AM 03/09/24 05:00 Prothrombin Time INR IN AM 03/10/24 05:00 Prothrombin Time INR IN AM 03/11/24 05:00 Prothrombin Time INR IN AM 03/12/24 05:00 Prothrombin Time INR IN AM Labs on day of discharge: 02/27/24 08:23: Corrected WBC 4.1, Uncorrected WBC Count 4.1, RBC 3.98, Hgb 12.2L, Hct 36.4 L, MCV 91.6, MCH 30.6, MCHC 33.4, RDW 16.2 H, Plt Count 144 L, MPV 8.3, Neut % (Auto) 58.6, Lymph % (Auto) 22.7, [place] % (Auto) 16.3, Eos % (Auto) 1.4, Baso % (Auto) 1.0, Nucleat RBC Rel Count 0.0, Neut # (Auto) 2.4, Lymph # (Auto) 0.9 L, [place] # (Auto) 0.7, Eos # (Auto) 0.1, Baso # (Auto) 0.0, PT 20.5 H,INR 1.8, APTT 39.2 H, PHA Creatinine Clear 65.05, Sodium 141, Potassium 4.8, Chloride 105, Carbon Dioxide 30.6, Anion Gap 10.2, BUN 15, Creatinine 0.77, Est GFR (CKD-EPI) > 60.0, Glucose 92, Estimat Average Glucose 114, Hemoglobin A1c 5.6, Calcium 9.5, Total Bilirubin 0.8, AST 28, ALT 18, Alkaline Phosphatase 108 H, Troponin I High Sens 22.5 H, Total Protein 6.8, Albumin 3.8, Globulin 3.0, Albumin/Globulin Ratio 1.3, Triglycerides 60, Cholesterol 130 L, LDL Cholesterol, Calc 48, VLDL Cholesterol 12, HDL Cholesterol 70, Cholesterol/HDL Ratio 1.9, Vitamin B12 390, 25-OH Vitamin D Total 29.3 L, Folate 16.9, TSH 3rd Generation 1.76 Documented By: Bright Lopez MD 4 1700 Signed By: <Electronically signed by Bright Lopez MD> 02/27/24 1708 [facility] Work Phone: evaluation note* Diagnosis Onset Date Resolution Status Traumatic wound acute [facility] Work Phone: Evaluation note* Diagnosis Onset Date Resolution Status Traumatic wound acute At high risk for altered skin integrity chronic Skin tear of left lower leg without complication chronic Thinning of skin chronic [facility] Work Phone: evaluation note* Diagnosis Onset Date Resolution Status Skin tear of left lower leg without complication acute At high risk for altered skin integrity chronic Thinning of skin chronic [facility] Work Phone: Evaluation noteNo assessment information available [facility] Work Phone: Evaluation note* Diagnosis Onset Date Resolution Status At high risk for altered skin integrity chronic Inflammation chronic Pain chronic Thinning of skin chronic Traumatic wound chronic [facility] Work Phone: Evaluation note* Diagnosis 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 Heart valve replaced by other means documented in this encounter [facility] Work Phone: Evaluation note* Diagnosis Onset Date Resolution Status At high risk for altered skin integrity chronic Inflammation chronic Pain chronic Thinning of skin chronic Traumatic wound resolved [facility] Work Phone: Evaluation note* Diagnosis Onset Date Resolution Status At high risk for altered skin integrity chronic Inflammation chronic Pain chronic Thinning of skin chronic Traumatic wound resolved Blurred vision acute Bundle branch block acute Elevated troponin level not due to acute coronary syndrome acute History of transcatheter aor tic valve replacement (TAVR) acute Atrial fibrillation chronic [facility] Work Phone: evaluation note* Diagnosis 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 Permanent atrial fibrillation (Multi) Atrial fibrillation Coronary artery disease, unspecified vessel or lesion type, unspecified whether angina present, unspecified whether [place] or transplanted heart Congestive heart failure, NYHA class 2, unspecified congestive heart failure type (Multi) Pulmonary hypertension (Multi) Other chronic pulmonary heart diseases Hypertension, unspecified type Pure hypercholesterolemia PVD (peripheral vascular disease) ([facility]) Unspecified peripheral vascular disease Type 2 diabetes mellitus without complication, unspecified whether glass enamel mixer insulin use (Multi) Stage 2 chronic kidney disease Former smoker Personal history of tobacco use, presenting hazards to health documented in this encounter [facility] Work Phone: Evaluation note* Diagnosis Onset Date Resolution Status Contusion of rib on right side acute Fall from slip, trip, or stumble acute Right knee injury acute Traumatic hematoma of forehead acute [facility] Work Phone: Evaluation note* Diagnosis Onset Date Resolution Status Contusion of rib on right side acute Fall from slip, trip, or stumble acute Right knee injury acute Traumatic hematoma of forehead acute Contusion of rib on right side acute Fall from slip, trip, or stumble acute Impaired mobility and activities of daily living acute Knee pain acute Right knee injury acute Right patella fracture acute Traumatic hematoma of forehead acute Pain chronic [facility] Work Phone: Evaluation note* Diagnosis Onset Date Resolution Status Contusion of rib on right side acute Fall from slip, trip, or stumble acute Right knee injury acute Traumatic hematoma of forehead acute Contusion of rib on right side acute Fall from slip, trip, or stumble acute Right knee injury acute Traumatic hematoma of forehead acute Impaired mobility and activities of daily living resolved Knee pain resolved Pain resolved Right patella fracture resol tayler Hemarthrosis acute History of bladder cancer ac paco History of prostate cancer a cute History of transcatheter aor tic valve replacement (TAVR) acute Right knee injury acute Atrial fibrillation chronic Diabetes mellitus type 2, diet-controlled chronic Venous stasis of both lower extremities chronic Impaired mobility and activities of daily living resolved Knee pain resolved Right patella fracture resol tayler [facility] Work Phone: evaluation note* Diagnosis Onset Date Resolution Status Contusion of rib on right side acute Fall from slip, trip, or stumble acute Right knee injury acute Traumatic hematoma of forehead acute Contusion of rib on right side acute Fall from slip, trip, or stumble acute Right knee injury acute Right patella fracture acute Traumatic hematoma of forehead acute Impaired mobility and activities of daily living resolved Knee pain resolved Pain resolved Right knee injury acute Right patella fracture acute Venous stasis of both lower extremities chronic Hemarthrosis resolved Impaired mobility and activities of daily living resolved Knee pain resolved Osteoarthritis of right knee acute Right patella fracture acute [facility] Work Phone: Evaluation note* Diagnosis Onset Date Resolution Status Contusion of rib on right side acute Fall from slip, trip, or stumble acute Right knee injury acute Traumatic hematoma of forehead acute Contusion of rib on right side acute Fall from slip, trip, or stumble acute Right knee injury acute Right patella fracture acute Traumatic hematoma of forehead acute Impaired mobility and activities of daily living resolved Knee pain resolved Pain resolved Right knee injury acute Right patella fracture acute Venous stasis of both lower extremities chronic Hemarthrosis resolved Impaired mobility and activities of daily living resolved Knee pain resolved Osteoarthritis of right knee acute Right patella fracture acute Light-headedness acute Numbness and tingling in left arm acute [facility] Work Phone: Evaluation note* Diagnosis Onset Date Resolution Status Contusion of rib on right side acute Fall from slip, trip, or stumble acute Right knee injury acute Traumatic hematoma of forehead acute Contusion of rib on right side acute Fall from slip, trip, or stumble acute Right knee injury acute Right patella fracture acute Traumatic hematoma of forehead acute Impaired mobility and activities of daily living resolved Knee pain resolved Pain resolved Right knee injury acute Right patella fracture acute Venous stasis of both lower extremities chronic Hemarthrosis resolved Impaired mobility and activities of daily living resolved Knee pain resolved Osteoarthritis of right knee acute Right patella fracture acute Light-headedness acute Numbness and tingling in left arm acute Transient ischemic attack (TIA) acute [facility] Work Phone: Evaluation note* Diagnosis Onset Date Resolution Status Contusion of rib on right side acute Fall from slip, trip, or stumble acute Right knee injury acute Traumatic hematoma of forehead acute Contusion of rib on right side acute Fall from slip, trip, or stumble acute Right knee injury acute Right patella fracture acute Traumatic hematoma of forehead acute Impaired mobility and activities of daily living resolved Knee pain resolved Pain resolved Right knee injury acute Right patella fracture acute Venous stasis of both lower extremities chronic Hemarthrosis resolved Impaired mobility and activities of daily living resolved Knee pain resolved Osteoarthritis of right knee acute Right patella fracture acute Light-headedness acute Numbness and tingling in left arm acute Transient ischemic attack (TIA) acute Osteoarthritis of right knee acute Right patella fracture acute [facility] Work Phone: Evaluation note* Diagnosis Onset Date Resolution Status Contusion of rib on right side acute Fall from slip, trip, or stumble acute Right knee injury acute Traumatic hematoma of forehead acute Contusion of rib on right side acute Fall from slip, trip, or stumble acute Right knee injury acute Right patella fracture acute Traumatic hematoma of forehead acute Impaired mobility and activities of daily living resolved Knee pain resolved Pain resolved Right knee injury acute Right patella fracture acute Venous stasis of both lower extremities chronic Hemarthrosis resolved Impaired mobility and activities of daily living resolved Knee pain resolved Osteoarthritis of right knee acute Right patella fracture acute Light-headedness acute Numbness and tingling in left arm acute Transient ischemic attack (TIA) acute Osteoarthritis of right knee acute Right patella fracture acute Elevated troponin acute Heart failure acute Hypomagnesemia acute Subtherapeutic international normalized ratio (INR) acute Weakness acute [facility] Work Phone: Evaluation note* Diagnosis Onset Date Resolution Status Contusion of rib on right side acute Fall from slip, trip, or stumble acute Right knee injury acute Traumatic hematoma of forehead acute Contusion of rib on right side acute Fall from slip, trip, or stumble acute Right knee injury acute Right patella fracture acute Traumatic hematoma of forehead acute Impaired mobility and activities of daily living resolved Knee pain resolved Pain resolved Right knee injury acute Right patella fracture acute Venous stasis of both lower extremities chronic Hemarthrosis resolved Impaired mobility and activities of daily living resolved Knee pain resolved Osteoarthritis of right knee acute Right patella fracture acute Light-headedness acute Numbness and tingling in left arm acute Transient ischemic attack (TIA) acute Osteoarthritis of right knee acute Right patella fracture acute Dysequilibrium acute Elevated troponin acute Heart failure acute Hypomagnesemia acute Subtherapeutic international normalized ratio (INR) acute Weakness acute [facility] Work Phone: Evaluation note* Diagnosis Onset Date Resolution Status Contusion of rib on right side acute Fall from slip, trip, or stumble acute Right knee injury acute Traumatic hematoma of forehead acute Contusion of rib on right side acute Fall from slip, trip, or stumble acute Right knee injury acute Right patella fracture acute Traumatic hematoma of forehead acute Impaired mobility and activities of daily living resolved Knee pain resolved Pain resolved Right knee injury acute Right patella fracture acute Venous stasis of both lower extremities chronic Hemarthrosis resolved Impaired mobility and activities of daily living resolved Knee pain resolved Osteoarthritis of right knee acute Right patella fracture acute Light-headedness acute Numbness and tingling in left arm acute Transient ischemic attack (TIA) acute Osteoarthritis of right knee acute Right patella fracture acute Dysequilibrium acute Subtherapeutic international normalized ratio (INR) acute Weakness acute Elevated troponin resolved Heart failure resolved Hypomagnesemia resolved Bicipital tendinitis, right shoulder acute Osteoarthritis of right knee acute Right patella fracture acute Rotator cuff syndrome of right shoulder acute [facility] Work Phone: Evaluation note* Diagnosis Seborrheic keratosis- Primary documented in this encounter [facility] HealthcareEvaluation note* Diagnosis TIA (transient ischemic attack)- Primary Unspecified transient cerebral ischemia Cervical spondylosis without myelopathy Hyperreflexia Abnormal reflex documented in this encounter [facility] HealthcareEvaluation note* Diagnosis Skin tear of left elbow without complication, initial encounter- Primary Left leg cellulitis Left leg swelling Blood blister Vascular disorder of skin documented in this encounter [facility] HealthcareEvaluation note* Diagnosis Non-pressure chronic ulcer of other part of left lower leg with fat layer exposed ([facility])- Primary documented in this encounter [facility] HealthcareEvaluation note* Diagnosis 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 documented in this encounter [facility] Work Phone: Evaluation note* Diagnosis 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 Coronary artery disease, unspecified vessel or lesion type, unspecified whether angina present, unspecified whether [place] or transplanted heart Pulmonary hypertension (Multi) Other chronic pulmonary heart diseases Congestive heart failure, NYHA class 2, unspecified congestive heart failure type Permanent atrial fibrillation (Multi) Atrial fibrillation PVD (peripheral vascular disease) ([facility]) Unspecified peripheral vascular disease Former smoker Personal history of tobacco use, presenting hazards to health BMI 23.0-23.9, adult documented in this encounter [facility] Work Phone: Evaluation note* Diagnosis Lumbosacral spondylosis without myelopathy- Primary Skin tear of left elbow without complication, initial encounter Left leg cellulitis documented in this encounter [facility] HealthcareEvaluation note* Diagnosis Congestive heart failure, NYHA class 2, unspecified congestive heart failure type BMI 24.0-24.9, adult Former smoker Personal history of tobacco use, presenting hazards to health documented in this encounter [facility] Work Phone: Evaluation note* Diagnosis TIA (transient ischemic attack)- Primary Unspecified transient cerebral ischemia Generalized muscle weakness Muscle weakness (generalized) Chronic systolic congestive heart failure, NYHA class 2 ([facility]) documented in this encounter [facility] HealthcareEvaluation note* Diagnosis Nontraumatic tear of right rotator cuff, unspecified tear extent- Primary documented in this encounter [facility] HealthcareEvaluation note* Diagnosis Mixed hyperlipidemia ([facility])- Primary Mixed hyperlipidemia Prediabetes Other abnormal glucose Coronary artery disease involving [place] coronary artery of [place] heart without angina pectoris ([facility]) Chronic atrial fibrillation (HCC) ([facility]/HCC) Atrial fibrillation Congestive heart failure, NYHA class 2, unspecified congestive heart failure type (CMS/HCC) Gastroesophageal reflux disease without esophagitis Esophageal reflux Anemia, unspecified type Lumbosacral spondylosis without myelopathy History of gout Personal history of endocrine, metabolic, and immunity disorders Centrilobular emphysema ([facility]) Medicare annual wellness visit, subsequent ACP (advance care planning) Other specified counseling documented in this encounter [facility] Narrative - Reported* Type Description Date Medical History A fib Medical History bladder cancer Medical History prostate cancer Medical History type II diabetes Medical History spinal stenosis Medical History NON-HEALING ULCER RLE Medical History CAD Surgical History cystoscopy;Disease:Kidne y Stones 2008 Surgical History rotater cuff Surgical History Cardioversion in the fall :afib 2007 Surgical History left hip Surgical History bladder Surgical History prostatectomy 1996 Surgical History bladder cancer tumor removed Surgical History R hallux fused;Disease:pain R h allux 1995 Surgical History neuroma removed R foot Surgical History diet controlled;Disease:type II diabetes Surgical History cystoscopy ureterosc opy,left ureteral calculus stricture Surgical History hip replacement,on Left.March 29;Disease:AVN 2008 Surgical History Colonoscopy, Diverticulosis 201 2 Surgical History corrective lenses visual impair ment Surgical History left rotator cuff repair,at [facility] Surgical History Colonoscopy per Dr. Erwin 05-27 Surgical History heart valve replacement 03/2020 Surgical History status post right total hip 202 1 Hospitalization History left rotator cuf f repair Dr. Zurita in [facility] 01/2015 Hospitalization History see surgical hx [employer] Other History general Narrative - Reported* Type Description Date Medical History A fib Medical History bladder cancer Medical History prostate cancer Medical History type II diabetes Medical History spinal stenosis Medical History NON-HEALING ULCER RLE/LLE Medical History CAD Surgical History cystoscopy;Disease:Kidne y Stones 2008 Surgical History rotater cuff Surgical History Cardioversion in the fall :afib 2007 Surgical History left hip Surgical History bladder Surgical History prostatectomy 1996 Surgical History bladder cancer tumor removed 96 Surgical History R hallux fused;Disease:pain R h allux 1995 Surgical History neuroma removed R foot Surgical History diet controlled;Disease:type II diabetes Surgical History cystoscopy ureterosc opy,left ureteral calculus stricture Surgical History hip replacement,on Left.March 29;Disease:AVN 2009 Surgical History Colonoscopy, Diverticulosis 201 2 Surgical History corrective lenses visual impair ment Surgical History left rotator cuff repair,at [facility] Surgical History Colonoscopy per Dr. Erwin 05-27 Surgical History heart valve replacement 03/2020 Surgical History status post right total hip 202 1 Hospitalization History left rotator cuf f repair Dr. Zurita in [facility] 01/2015 Hospitalization History see surgical hx [employer] Other Hospital Discharge instructions Additional Instructions Elevate your left lower extremity as instructed Take your antibiotic as instructed until gone Please return if you develop any fevers, chills, calf pain, increased pain, increased redness, increased swelling, or any other concern You have blood cultures that are pending.[facility] Work Phone: Hospital Discharge instructions Additional Instructions DISCHARGE INSTRUCTIONS FOR URETEROSCOPY, LASER LITHOTRIPSY, STONE EXTRACTION, AND STENT PLACEMENT There are no incisions or dressings to be concerned with, as the procedure was performed inside the urinary system. For 24 hours after surgery: -No driving or operating machinery. -Do not make important decisions. -Do not consume alcohol, sleeping pills. STENT PLACEMENT -you may have a stent which spans the distance between your bladder and your kidney, allowing urine to pass through. It prevents blockage from swelling, kidney stones in the ureter (tube connecting the kidney to the bladder), or scars. The presence of the stent may cause: -Back or side pain, especially with urination. -Frequent or urgent urination. -Bladder pressure or pain. -Blood in the urine. -You may pass stone debris or small blood clots, which is expected. -Drinking plenty of water to dilute the urine may help. -If there is a thread coming out of the urinary channel, be careful not to accidentally pull on this, as it is attached to the stent. -The stent will most likely be removed in office during a short procedure in which a scope is placed into the bladder, the stent is grasped, and removed. At other times the stent may need to stay in longer, either in preparation for other procedures, or for other reasons. If it is to remain fci, however, changes of the stent are required (about every 3-4 months). DIET You may resume your normal diet, but you may want to start slowly and avoid spicy food, caffeine, carbonated beverages, and alcohol- especially if you have a stent. Your diet and fluid intake may make irritation form the stent worse. ACTIVITY You may resume your normal activities, although you should take it easy on the day of the procedure. Minimizing activity may decrease the back discomfort and irritation from the stent, if present. MEDICATIONS -You may resume your home medications unless instructed otherwise. -[Hold aspirin, ibuprofen, Coumadin (warfarin), and other blood thinners until your office visit (we'll discuss when to resume these medications).] -Take your prescribed medications as directed, including your antibiotics. You may also be given a prescription for pain medicine, or medicines to help with the bladder irritation from the stent, if present. THINGS TO WATCH FOR WHICH WOULD REQUIRE AN EMERGENCY ROOM VISIT (OR CALL 911) (This is not a complete list) -Fever over 101.5 degrees Fahrenheit, with or without chills. -Severe bleeding. -Severe drug reactions with itching, hives, or rash, or severe flank pain. -Tenderness or swelling of the calves, chest pain, or shortness of breath. FOLLOW UP Please call my office to make arrangements to have the stent removed in the outpatient setting within the next 2 to 3 weeks. [ ][facility] Work Phone: Hospital Discharge instructionsAmbulatory Orders* Initiate Home Health Time Frame: 1 Day, Location: Determined By Patient Additional Instructions Home Home Health to manage care: - Full code - PT/OT eval and treat - Routine vital signs - Weight bearing as tolerated Please do not take Tramadol if taking Oxycodone.[facility] Work Phone: Hospital Discharge instructionsAmbulatory Orders* PT/OT/SP OutPatient Referral Time Frame: 1 Day, Location: Determined By Patient [facility] Work Phone: Hospital Discharge instructions Additional Instructions Its important that you take your antibiotics as instructed until gone Push fluids Rest Return here if any problems persist or worsen.[facility] Work Phone: Instructions* Name Dates Details Instructions not documented [id number] Dominick [address] [place] Work Phone: Instructions* Name Dates Details Instructions not documented [facility] Dominick [address] [place] Work Phone: Instructions* Name Dates Details Instructions not documented [facility] Dominick [address] [place] Work Phone: Progress note Author Marisela Shaffer [facility] March 19, 2022 10:50am Note Date/Time March 19, 2022 10 :50am [facility] [address] [place] [address] Wound Center Provider Note Signed Patient: Fani Chua MR#: [id number] : 1935 Acct:[id number] Age/Sex: 86 / M Copies to: NO FAMILY PHYSICIAN Marisela Shaffer APRN~ HPI Date of Visit Date of Visit: Date of Service: 03/19/2022 Time of Service: 10:48 Narrative HPI: 02/04/22 Te is an 86 year old male presenting to [facility] wound care program for an initial visit for eval and treatment of a traumatic wound to the right lower leg. He has been using honey gel on the area with a nonstick telfa bandage. He tells me that he had completed a course of Doxy for a staph infection to this area. I see no signs of infection today. He can return in 2 weeks and may very well be healed at that time. He will use vashe cleanser and collagen powder with a bandage. Healing will depend on the dressings being done as ordered as well as having a well balanced diet. 02/19/22 right leg wound looks stable, has a new injury to the left leg from the vacuum booth cleaner, honey sheet to both areas, 2 week appt 03/05/22 left leg healed, right leg has cellulitis from what he says was dry skinand this is distal to the current wounded area, oral doxycycline was escribed for 14 days, honey as before 03/19/22 healed, no need to return at this time, he is aware to call when he needs us in the future Subjective Pain Right Lower Medial Leg: Pain Description: Intermittent and Soreness Pain Intensity: 0 Wound/Ulcer History When did wound start?: January 13, 2022 right, 02/18/22 Left Mode of Arrival/ Residential Life Director: Personal vehicle Lives with:: Spouse Appetite Description: Within Normal Limits Who helps w/ dressing change?: Self Smoking Status: Former smoker PMFSH Vaccinated for COVID-19?: Yes Medical History (Updated 03/19/22 @ 10:49 by Marisela Shaffer APRN) Afib Bladder cancer Diabetes mellitus type 2, diet-controlled Pt doesn't take any meds Gout Prostate cancer Ulcer of right lower leg history of Warfarin anticoagulation Surgical History History of bladder surgery History of hip surgery left hip replaced History of prostatectomy S/P left rotator cuff repair Family History Father CAD (coronary artery disease) Mother CAD (coronary artery disease) Brother Bipolar 1 disorder COPD (chronic obstructive pulmonary disease) Grandparent Cancer Grandparent Diabetes Social History Smoking Status: Former smoker Tobacco Type: cigarettes Substance Use Type: Alcohol Substance Abuse Comment: 1-2 beers a day Grafts History of Graft History of Graft?: No Exam Physical Exam Vital Signs: Temp Pulse Resp BP O2 Del Method 97.2 F L 81 18 147/85 H Room Air 03/19/22 10:29 03/19/22 10:29 03/19/22 10:29 03/19/22 10:29 03/19/22 10:29 Const General: cooperative, healthy appearing, comfortable and no acute distress Nutritional Appearance: average body habitus Orientation: alert, awake and oriented x3 Lower/Upper Extremity Exam Vascular Exam-Edema Right Lower Extremity: Edema Type: Non-Pitting Vascular Exam-Pulses Right Dorsalis Pedis: Pulse Assessment Method: Palpation Right Posterior Tibial: Pulse Assessment Method: Palpation Left Brachial: Pulse Assessment Method: NIBP Objective Meds/Allergies Home Medications pantoprazole 40 mg tablet,delayed release 40 mg PO DAILY 01/19/19 [History Confirmed 03/19/22] gemfibrozil 600 mg tablet 600 mg PO DAILY 01/14/20 [History Confirmed 03/19/22] warfarin 5 mg tablet 7.5 mg PO 2XW 02/05/20 [History Confirmed 03/19/22] warfarin 5 mg tablet 10 mg PO 5XW 12/10/20 [History Confirmed 03/19/22] tramadol 50 mg tablet 50 mg PO Q6H PRN Pain 10/01/21 [History Confirmed 03/19/22] indomethacin 50 mg capsule 50 mg PO BID 03/05/22 [History Confirmed 03/19/22] Allergies amoxicillin Allergy (Severe, Verified 03/19/22 10:31) Swelling of Lip/Tongue/Throat bacitracin [From Neosporin ([id number])] Allergy (Verified 03/19/22 10:31) itch and rash neomycin [From Neosporin ([id number])] Allergy (Verified 03/19/22 10:31) itch and rash polymyxin B [From Neosporin ([id number])] Allergy (Verified 03/19/22 10:31) Rash and itch Wound/Ulcer Right Lower Medial Leg: Type: Traumatic (laceration) Thickness: Full Length (cm): 0 Width (cm): 0 Depth (cm): 0 CM Sq: 0.000 Surrounding Tissue Appearance: Ethnic/Norm Surrounding Tissue Temp: Warm Drainage Amount: None Drainage Description: Serous Drainage Odor: No Odor Lidocaine Applied Topically: 2% Jelly Procedures Time Out: 2 Patient Identifiers, Correct Patient, Correct Side/Site, Correct Procedure and Safety Issues Reviewed Procedure: A forcep was used to remove some dried exudate- this was not a debridement. Results Height: 5 ft 9 in Weight: 78.018 kg Body Mass Index: 25.4 Assessment/Plan Assessment/Plan (1) Traumatic wound: Assessment/Problem Details: rle Status: Resolved (2) Skin tear of left lower leg without complication: Qualifiers: Encounter type: initial encounter Qualified Code(s): S81.812A - Laceration without foreign body, left lower leg, initial encounter Code(s): S81.812A - Laceration without foreign body, left lower leg, initial encounter Status: Resolved (3) Thinning of skin: Code(s): R23.4 - Changes in skin texture Status: Chronic (4) At high risk for altered skin integrity: Assessment/Problem Details: d/t thin skin d/t age and blood thinners Code(s): Z91.89 - Other specified personal risk factors, not elsewhere classified Status: Chronic Time spent with patient Time Spent With Patient (min): 15 Dictated By: Marisela Shaffer APRN DD/ 1048 Signed By: <Electronically signed by BENJI Shaffer> 03/19/22 1050 [facility] Work Phone: Reason for visit Narrative* CV Imaging (Routine) - Authorized Specialty Diagnoses / Procedures Referred By Contac t Referred To Contact Cardiology Diagnoses 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 Procedures Transthoracic Echo Complete TN ECHO TTHRC R-T 2D W/WOM-MODE COMPL SPEC&COLR D Bonita Kingsley MD [address] [facility] 2, [address] [address] Phone: tel: fax: Referral ID Status Reason Start Date Expiration Date Visits Requested Visits Authorized [id number] Authorized Perform Procedure 09/29/2023 09/28/2024 1 1 [facility] Work Phone: Family History No Family History Records FoundUnknown Family Member Name Dates Details Family history of malignant neoplasm(V16.9, Z80.9) Comments:Multiple Family Mem bers Status:Active Family history of diabetes m ellitus(V18.0, Z83.3) Comments:Multiple Family Mem bers Status:Active Unknown Family Member Name Dates Details Family history of malignant neoplasm: Multiple Family Members(V16.9, Z80.9) Status:Active Family history of diabetes m ellitus: Multiple Family Members(V18.0, Z83.3) Status:Active Unknown Family Member Name Dates Details Family history of malignant neoplasm: Multiple Family Members(V16.9, Z80.9) Status:Active Family history of diabetes m ellitus: Multiple Family Members(V18.0, Z83.3) Status:Active Family history of cardiomega ly: Mother(V17.49, Z82.49) Status:Active Family history of chronic ob structive pulmonary disease: Brother(V17.6, Z82.5) Status:Active Family history of rheumatic fever: Father(V17.49, Z82.49) Status:Active Unknown Family Member Name Dates Details Family history of malignant neoplasm(V16.9, Z80.9) Comments:Multiple Family Mem bers Status:Active Family history of diabetes m ellitus(V18.0, Z83.3) Comments:Multiple Family Mem bers Status:Active Unknown Family Member Name Dates Details Family history of malignant neoplasm(V16.9, Z80.9) Comments:Multiple Family Mem bers Status:Active Family history of diabetes m ellitus(V18.0, Z83.3) Comments:Multiple Family Mem bers Status:Active Unknown Family Member Name Dates Details Family history of malignant neoplasm(V16.9, Z80.9) Comments:Multiple Family Mem bers Status:Active Family history of diabetes m ellitus(V18.0, Z83.3) Comments:Multiple Family Mem bers Status:Active Unknown Family Member Name Dates Details Family history of rheumatic fever: Father(V17.49, Z82.49) Status:Active Family history of chronic ob structive pulmonary disease: Brother(V17.6, Z82.5) Status:Active Family history of cardiomega ly: Mother(V17.49, Z82.49) Status:Active Family history of diabetes m ellitus: Multiple Family Members(V18.0, Z83.3) Status:Active Family history of malignant neoplasm: Multiple Family Members(V16.9, Z80.9) Status:Active Relationship Condition Age at Onset Recorded Date/T gavino father Coronary artery disease Unknown Not Specified Coronary artery disease Unknown brother Bipolar I disorder Unknown Chronic obstructive pulmonary disease Unk nown grandparent Malignant neoplasm Unknown grandparent Diabetes mellitus Unknown Unknown Family Member Name Dates Details Family history of malignant neoplasm: Multiple Family Members(V16.9, Z80.9) Status:Active Family history of diabetes m ellitus: Multiple Family Members(V18.0, Z83.3) Status:Active Family history of cardiomega ly: Mother(V17.49, Z82.49) Status:Active Family history of chronic ob structive pulmonary disease: Brother(V17.6, Z82.5) Status:Active Family history of rheumatic fever: Father(V17.49, Z82.49) Status:Active Unknown Family Member Name Dates Details Family history of malignant neoplasm: Multiple Family Members(V16.9, Z80.9) Status:Active Family history of diabetes m ellitus: Multiple Family Members(V18.0, Z83.3) Status:Active Family history of cardiomega ly: Mother(V17.49, Z82.49) Status:Active Family history of chronic ob structive pulmonary disease: Brother(V17.6, Z82.5) Status:Active Family history of rheumatic fever: Father(V17.49, Z82.49) Status:Active Unknown Family Member Name Dates Details Family history of malignant neoplasm: Multiple Family Members(V16.9, Z80.9) Status:Active Family history of diabetes m ellitus: Multiple Family Members(V18.0, Z83.3) Status:Active Family history of cardiomega ly: Mother(V17.49, Z82.49) Status:Active Family history of chronic ob structive pulmonary disease: Brother(V17.6, Z82.5) Status:Active Family history of rheumatic fever: Father(V17.49, Z82.49) Status:Active Unknown Family Member Name Dates Details Family history of malignant neoplasm: Multiple Family Members(V16.9, Z80.9) Status:Active Family history of diabetes m ellitus: Multiple Family Members(V18.0, Z83.3) Status:Active Family history of chronic ob structive pulmonary disease: Brother(V17.6, Z82.5) Status:Active Family history of cardiomega ly: Mother(V17.49, Z82.49) Status:Active Family history of rheumatic fever: Father(V17.49, Z82.49) Status:Active Relationship Condition Age at Onset Recorded Date/T gavino father Coronary artery disease Unknown Not Specified Coronary artery disease Unknown brother Bipolar I disorder Unknown Chronic obstructive pulmonary disease Unk nown grandparent Malignant neoplasm Unknown grandparent Diabetes mellitus Unknown daughter Bipolar I disorder Unknown Relationship Condition Age at Onset Recorded Date/T gavino father Coronary artery disease Unknown mother Coronary artery disease Unknown brother Bipolar I disorder Unknown Chronic obstructive pulmonary disease Unk nown grandparent Malignant neoplasm Unknown grandparent Diabetes mellitus Unknown daughter Bipolar I disorder Unknown brother Unknown father Unknown Heart disease Unknown mother Heart disease Unknown Unknown sibling Malignant neoplasm Unknown Relationship Condition Age at Onset Recorded Date/T gavino Not Specified Atrial fibrillation Unknown father Coronary artery disease Unknown mother Coronary artery disease Unknown brother Bipolar I disorder Unknown Chronic obstructive pulmonary disease Unk nown grandparent Malignant neoplasm Unknown grandparent Diabetes mellitus Unknown daughter Bipolar I disorder Unknown brother Unknown father Unknown Heart disease Unknown mother Heart disease Unknown Unknown sibling Malignant neoplasm Unknown Relationship Condition Age at Onset Recorded Date/T gavino Not Specified Atrial fibrillation Unknown father Coronary artery disease Unknown Unknown Heart disease Unknown mother Coronary artery disease Unknown brother Bipolar I disorder Unknown Chronic obstructive pulmonary disease Unk nown grandparent Malignant neoplasm Unknown grandparent Diabetes mellitus Unknown daughter Bipolar I disorder Unknown brother Unknown sibling Malignant neoplasm Unknown Chief Complaint * FANI CHUA is being seen for an annual follow-up of. * Patient is in the office for follow-up for TAVR. He is currently without any dyspnea or lower extremity edema. He has permanent atrial fibrillation with controlled rate and currently on Coumadin managed by the [facility] without bleeding complications. His last echocardiogram February 2021 revealed normal functioning TAVR with insignificant regurgitation and with moderate pulmonary hypertension, RVSP 50-55 mmHg. His examination today was only remarkable for irregular rhythm. He denies any dyspnea orthopnea PND lower extremity edema and no palpitations and has had no bleeding complications. * Assessment/recommendations: * 1 history of severe aortic stenosis status post TAVR 2019 at [facility] [place]. Follow-up echocardiogram in February 2021 was reviewed with the patient. Follow-up echocardiogram in 1 year * 2 moderate pulmonary hypertension, echocardiogram February 2021 RVSP 50-55 mmHg, currently no dyspnea and no edema. Will monitor * 3 permanent atrial fibrillation on chronic Coumadin therapy with no bleeding complications, heart rate is under control. * 4 slight overweight, encouraged weight reduction with diet and exercise * 5 high risk medication with anticoagulation with no complications so far. * FANI CHUA is being seen for an annual follow-up of. * Patient is in the office for follow-up for TAVR. He is currently without any dyspnea or lower extremity edema. He has permanent atrial fibrillation with controlled rate and currently on Coumadin managed by the [facility] without bleeding complications. His last echocardiogram February 2021 revealed normal functioning TAVR with insignificant regurgitation and with moderate pulmonary hypertension, RVSP 50-55 mmHg. His examination today was only remarkable for irregular rhythm. He denies any dyspnea orthopnea PND lower extremity edema and no palpitations and has had no bleeding complications. * Assessment/recommendations: * 1 history of severe aortic stenosis status post TAVR 2019 at [facility] [place]. Follow-up echocardiogram in February 2021 was reviewed with the patient. Follow-up echocardiogram in 1 year * 2 moderate pulmonary hypertension, echocardiogram February 2021 RVSP 50-55 mmHg, currently no dyspnea and no edema. Will monitor * 3 permanent atrial fibrillation on chronic Coumadin therapy with no bleeding complications, heart rate is under control. * 4 slight overweight, encouraged weight reduction with diet and exercise * 5 high risk medication with anticoagulation with no complications so far. FANI CHUA is being seen for a 9 month follow-up of.* FANI CHUA is being seen for an annual follow-up of. * Patient seen in the office for follow-up for the problems noted below. 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 His last echocardiogram was a year ago and demonstrated normal functioning TAVR with insignificant perivalvular leak and moderate pulmonary hypertension. Heremains without any evidence of dyspnea or lower extremity edema. He has chronic atrial fibrillation treated with Coumadin and self rate controlled. He had recent lab data which I reviewed and discussed with him and there were no areas of concern. He is hemoglobin is on the borderline. He tells me that he had a CT of the abdomen for his spine and they discovered enlarged kidney. We do not know the details but he is following with urology Dr. Ramirez. I requested report on the CT. His examination is unremarkable for irregular rhythm. * Assessment/recommendations: * 1 history of severe aortic stenosis status post TAVR 2019 at [facility] [place]. Follow-up echocardiogram is scheduled. Currently asymptomatic from that standpoint. * 2 moderate pulmonary hypertension, echocardiogram February 2022 RVSP 50 mmHg, currently no dyspneaand no edema. Will monitor, I explained to the patient the physiology of pulmonary hypertension andpotential symptoms. * 3 permanent atrial fibrillation on chronic Coumadin therapy with no bleeding complications, heart rate is under control. * 4 squamous cell carcinoma recently resected followed by dermatology * 5 high risk medication with anticoagulation with no complications so far. * 6 enlarged kidney discovered on CT scan of the abdomen. I requested the report. Patient is following with urology Chief Complaint and Reason for Visit Chief Complaint M16.11 L03.90 return / chest (singles), R leg/ankle Reason for Visit Traumatic wound Chief Complaint M16.11 L03.90 Open Wound Reason for Visit Traumatic wound At high risk for altered skin integrity Skin tear of left lower leg without complication Thinning of skin Chief Complaint left leg laceration Reason for Visit Skin tear of left lo wer leg without complication At high risk for altered skin integrity Thinning of skin Chief Complaint J43.9 I27.20 I50.32 E78.2 C61 M10.9 E11.69 n13.30 Chief Complaint J43.9 I27.20 I50.32 E78.2 C61 M10.9 E11.69 n13.30 L leg infection Chief Complaint n13.30 L leg infection Open Wound hydronephrosis, bladder, cancer, prostate ca Reason for Visit At high risk for alt ered skin integrity Inflammation Pain Thinning of skin Traumatic wound Chief Complaint n13.30 L leg infection hydronephrosis, bladder, cancer, prostate ca Open Wound Reason for Visit At high risk for alt ered skin integrity Inflammation Pain Thinning of skin Traumatic wound Chief Complaint hydronephrosis, blad norris, cancer, prostate ca Open Wound hydronephrosis, bladder, cancer, prostate ca Reason for Visit At high risk for alt ered skin integrity Inflammation Pain Thinning of skin Traumatic wound Chief Complaint hydronephrosis, blad norris, cancer, prostate ca Open Wound hydronephrosis, bladder, cancer, prostate ca dizzy Reason for Visit At high risk for alt ered skin integrity Inflammation Pain Thinning of skin Traumatic wound Blurred vision Bundle branch block Elevated troponin level not due to acute coronary syndrome History of transcatheter aortic valve replacement (TAVR) Atrial fibrillation Chief Complaint Fall: head injury Reason for Visit Contusion of rib on right side Fall from slip, trip, or stumble Right knee injury Traumatic hematoma of forehead Chief Complaint Fall: head injury knee fx Reason for Visit Contusion of rib on right side Fall from slip, trip, or stumble Right knee injury Traumatic hematoma of forehead Chief Complaint Fall: head injury knee fx knee fx knee fx Reason for Visit Contusion of rib on right side Fall from slip, trip, or stumble Right knee injury Traumatic hematoma of forehead Contusion of rib on right side Fall from slip, trip, or stumble Impaired mobility and activities of daily living Knee pain Right knee injury Right patella fracture Traumatic hematoma of forehead Pain Chief Complaint Fall: head injury knee fx knee fx knee fx R Patellar Fx R Patellar Fx Reason for Visit Contusion of rib on right side Fall from slip, trip, or stumble Right knee injury Traumatic hematoma of forehead Contusion of rib on right side Fall from slip, trip, or stumble Right knee injury Traumatic hematoma of forehead Impaired mobility and activities of daily living Knee pain Pain Right patella fracture Hemarthrosis History of bladder cancer History of prostate cancer History of transcatheter aortic valve replacement (TAVR) Right knee injury Atrial fibrillation Diabetes mellitus type 2, diet-controlled Venous stasis of both lower extremities Impaired mobility and activities of daily living Knee pain Right patella fracture Chief Complaint Fall: head injury knee fx knee fx knee fx R Patellar Fx R Patellar Fx M17.11 - Unilateral primary osteoarthritis, right FOLLOW UP FROM HOSP [facility] Reason for Visit Contusion of rib on right side Fall from slip, trip, or stumble Right knee injury Traumatic hematoma of forehead Contusion of rib on right side Fall from slip, trip, or stumble Right knee injury Right patella fracture Traumatic hematoma of forehead Impaired mobility and activities of daily living Knee pain Pain Right knee injury Right patella fracture Venous stasis of both lower extremities Hemarthrosis Impaired mobility and activities of daily living Knee pain Osteoarthritis of right knee Right patella fracture Chief Complaint Fall: head injury knee fx knee fx knee fx R Patellar Fx R Patellar Fx M17.11 - Unilateral primary osteoarthritis, right FOLLOW UP FROM HOSP [facility] FX lt arm numbness, tingly Reason for Visit Contusion of rib on right side Fall from slip, trip, or stumble Right knee injury Traumatic hematoma of forehead Contusion of rib on right side Fall from slip, trip, or stumble Right knee injury Right patella fracture Traumatic hematoma of forehead Impaired mobility and activities of daily living Knee pain Pain Right knee injury Right patella fracture Venous stasis of both lower extremities Hemarthrosis Impaired mobility and activities of daily living Knee pain Osteoarthritis of right knee Right patella fracture Light-headedness Numbness and tingling in left arm Chief Complaint Fall: head injury knee fx knee fx knee fx R Patellar Fx R Patellar Fx M17.11 - Unilateral primary osteoarthritis, right FOLLOW UP FROM HOSP [facility] FX lt arm numbness, tingly Reason for Visit Contusion of rib on right side Fall from slip, trip, or stumble Right knee injury Traumatic hematoma of forehead Contusion of rib on right side Fall from slip, trip, or stumble Right knee injury Right patella fracture Traumatic hematoma of forehead Impaired mobility and activities of daily living Knee pain Pain Right knee injury Right patella fracture Venous stasis of both lower extremities Hemarthrosis Impaired mobility and activities of daily living Knee pain Osteoarthritis of right knee Right patella fracture Light-headedness Numbness and tingling in left arm Transient ischemic attack (TIA) Chief Complaint Fall: head injury knee fx knee fx knee fx R Patellar Fx R Patellar Fx M17.11 - Unilateral primary osteoarthritis, right FOLLOW UP FROM HOSP [facility] FX lt arm numbness, tingly 4 WEEKS S82.001A - Unspecified fracture of right patella, Reason for Visit Contusion of rib on right side Fall from slip, trip, or stumble Right knee injury Traumatic hematoma of forehead Contusion of rib on right side Fall from slip, trip, or stumble Right knee injury Right patella fracture Traumatic hematoma of forehead Impaired mobility and activities of daily living Knee pain Pain Right knee injury Right patella fracture Venous stasis of both lower extremities Hemarthrosis Impaired mobility and activities of daily living Knee pain Osteoarthritis of right knee Right patella fracture Light-headedness Numbness and tingling in left arm Transient ischemic attack (TIA) Osteoarthritis of right knee Right patella fracture Chief Complaint Fall: head injury knee fx knee fx knee fx R Patellar Fx R Patellar Fx M17.11 - Unilateral primary osteoarthritis, right FOLLOW UP FROM HOSP [facility] FX lt arm numbness, tingly 4 WEEKS S82.001A - Unspecified fracture of right patella, Generalized weakness Reason for Visit Contusion of rib on right side Fall from slip, trip, or stumble Right knee injury Traumatic hematoma of forehead Contusion of rib on right side Fall from slip, trip, or stumble Right knee injury Right patella fracture Traumatic hematoma of forehead Impaired mobility and activities of daily living Knee pain Pain Right knee injury Right patella fracture Venous stasis of both lower extremities Hemarthrosis Impaired mobility and activities of daily living Knee pain Osteoarthritis of right knee Right patella fracture Light-headedness Numbness and tingling in left arm Transient ischemic attack (TIA) Osteoarthritis of right knee Right patella fracture Elevated troponin Heart failure Hypomagnesemia Subtherapeutic international normalized ratio (INR) Weakness Chief Complaint Fall: head injury knee fx knee fx knee fx R Patellar Fx R Patellar Fx M17.11 - Unilateral primary osteoarthritis, right FOLLOW UP FROM HOSP [facility] FX lt arm numbness, tingly 4 WEEKS S82.001A - Unspecified fracture of right patella, Generalized weakness Reason for Visit Contusion of rib on right side Fall from slip, trip, or stumble Right knee injury Traumatic hematoma of forehead Contusion of rib on right side Fall from slip, trip, or stumble Right knee injury Right patella fracture Traumatic hematoma of forehead Impaired mobility and activities of daily living Knee pain Pain Right knee injury Right patella fracture Venous stasis of both lower extremities Hemarthrosis Impaired mobility and activities of daily living Knee pain Osteoarthritis of right knee Right patella fracture Light-headedness Numbness and tingling in left arm Transient ischemic attack (TIA) Osteoarthritis of right knee Right patella fracture Dysequilibrium Elevated troponin Heart failure Hypomagnesemia Subtherapeutic international normalized ratio (INR) Weakness Chief Complaint Fall: head injury knee fx knee fx knee fx R Patellar Fx R Patellar Fx M17.11 - Unilateral primary osteoarthritis, right FOLLOW UP FROM HOSP [facility] FX lt arm numbness, tingly 4 WEEKS S82.001A - Unspecified fracture of right patella, Generalized weakness M25.511 - Pain in right shoulder CONSULT MARIA FERNANDA LAWS NP RIGHT SHOULDER PAIN NX Reason for Visit Contusion of rib on right side Fall from slip, trip, or stumble Right knee injury Traumatic hematoma of forehead Contusion of rib on right side Fall from slip, trip, or stumble Right knee injury Right patella fracture Traumatic hematoma of forehead Impaired mobility and activities of daily living Knee pain Pain Right knee injury Right patella fracture Venous stasis of both lower extremities Hemarthrosis Impaired mobility and activities of daily living Knee pain Osteoarthritis of right knee Right patella fracture Light-headedness Numbness and tingling in left arm Transient ischemic attack (TIA) Osteoarthritis of right knee Right patella fracture Dysequilibrium Subtherapeutic international normalized ratio (INR) Weakness Elevated troponin Heart failure Hypomagnesemia Bicipital tendinitis, right shoulder Osteoarthritis of right knee Right patella fracture Rotator cuff syndrome of right shoulder Chief Complaint Fall: head injury knee fx knee fx knee fx R Patellar Fx R Patellar Fx M17.11 - Unilateral primary osteoarthritis, right FOLLOW UP FROM HOSP [facility] FX lt arm numbness, tingly 4 WEEKS S82.001A - Unspecified fracture of right patella, Generalized weakness M25.511 M17.11 S82.001A CONSULT MARIA FERNANDA LAWS PTA RIGHT SHOULDER PAIN NX Reason for Visit Contusion of rib on right side Fall from slip, trip, or stumble Right knee injury Traumatic hematoma of forehead Contusion of rib on right side Fall from slip, trip, or stumble Right knee injury Right patella fracture Traumatic hematoma of forehead Impaired mobility and activities of daily living Knee pain Pain Right knee injury Right patella fracture Venous stasis of both lower extremities Hemarthrosis Impaired mobility and activities of daily living Knee pain Osteoarthritis of right knee Right patella fracture Light-headedness Numbness and tingling in left arm Transient ischemic attack (TIA) Osteoarthritis of right knee Right patella fracture Dysequilibrium Subtherapeutic international normalized ratio (INR) Weakness Elevated troponin Heart failure Hypomagnesemia Bicipital tendinitis, right shoulder Osteoarthritis of right knee Right patella fracture Rotator cuff syndrome of right shoulder Chief Complaint Admit Date I50.9 May 06, 2024 1:14pm back pain, chills June 15, 2024 1: 21pm Advance Directives No Advanced Directives Records Found Advance Directive Response Recorded Date/ Time Advance Directives No April 11:20am Advance Directive Response Recorded Date/ Time Advance Directives No April 10:20am Summary Purpose Reason for Referral Specialty Diagnoses / Procedures Referred By Kelvin t Referred To Contact Cardiology Diagnoses 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 Procedures Transthoracic Echo (TTE) Complete TN ECHO TRANSTHORC R-T 2D W/WO M-MODE REC F-UP/LMTD TN DOP ECHOCARD COLOR FLOW VELOCITY MAPPING TN DOP ECHOCARD PULSE WAVE W/SPECTRAL F-UP/LMTD STD Bonita Kingsley MD [address] [place] [address], [address] [address] Referral ID Status Reason Start Date Expiration Date Visits Requested Visits Authorized [id number] Authorized Perform Procedure 03/05/2023 09/01/2023 1 1 Additional Source Comments REASON FOR VISIT (unrecogniz ed section and content) Specialty Diagnoses / Procedures Referred By Contmarkus t Referred To Contact Cardiology Diagnoses 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 Procedures Transthoracic Echo (TTE) Complete TN ECHO TRANSTHORC R-T 2D W/WO M-MODE REC F-UP/LMTD TN DOP ECHOCARD COLOR FLOW VELOCITY MAPPING TN DOP ECHOCARD PULSE WAVE W/SPECTRAL F-UP/LMTD STD Bonita Kingsley MD [address] [facility] 2, [address] [address] Referral ID Status Reason Start Date Expiration Date Visits Requested Visits Authorized [id number] Authorized Perform Procedure 03/05/2023 09/01/2023 1 1 Reason Comments Follow-up [facility] discharge Reason Comments Suspicious Skin Lesion Reason Comments Wound Check Referral Reason Comments Follow-up 6m and echo results Specialty Diagnoses / Procedures Referred By Contac t Referred To Contact Cardiology Diagnoses Nonrheumatic aortic valve stenosis Procedures Follow Up In Cardiology Bonita Kingsley MD [address] [place] [address], [address] [address] Phone: tel: fax: Bonita Kingsley MD [address] [place] [id number] Phone: tel: fax: Referral ID Status Reason Start Date Expiration Date V isits Requested Visits Authorized [id number] Authorized 09/29/2023 09/28/2024 1 1 Reason Onset Date Comments Med Refill 04/25/2024 Reason Comments Blood Pressure Check Specialty Diagnoses / Procedures Referred By Contac t Referred To Contact Cardiology Diagnoses Congestive heart failure, NYHA class 2, unspecified congestive heart failure type Procedures Follow Up In Cardiology Bonita Kingsley MD [address] [place] [address] 2, [address] [address] Phone: tel: fax: Bonita Kingsley MD [address] [place] [address], [address] [address] Phone: tel: fax: Referral ID Status Reason Start Date Expiration Date V isits Requested Visits Authorized [id number] Authorized 04/18/2024 04/18/2025 1 1 Reason Comments Post Hospital Reason Comments Shoulder Pain Reason Comments 6 Month Follow Up Medicare Annual Wellness Visit Subsequen t Care Teams (unrecognized sec tion and content) Team Status: Active Member Role Status Dates María Anderson MD Primary Care Provider Active Team Status: Inactive Member Role Status Dates María Anderson MD Primary Care Provider Active St art: December 20, 2023 End: December 20, 2023 Rubio Crooks Jr, MD Emergency Provider Active Start: December 20, 2023 End: December 20, 2023 Henry Louise DO RES Active St art: December 20, 2023 End: December 20, 2023 Isai May DO Admit Provider Active Start: December 20, 2023 End: December 20, 2023 Betty Buchanan MD Attending Provider Active Sta rt: December 20, 2023 End: December 20, 2023 Rubio Waite MD Other Provider Active Start: Steph celaya 2023 End: December 20, 2023 Aspen Bishop MD Other Provider Active Star t: December 20, 2023 End: December 20, 2023 Mona Tyler NP-C Other Provider Active Start: December 20, 2023 End: December 20, 2023 Roly Morales DO Other Provider Active Start : December 20, 2023 End: December 20, 2023 María Stevenson II, MD Other Provider Active S tart: December 20, 2023 End: December 20, 2023 Ramses Garcia DO Other Provider Active Start: December 20, 2023 End: December 20, 2023 Team Status: Active Member Role Status Dates María Anderson MD Primary Care Provider Active St art: December 20, 2023 Rubio Crooks Jr, MD Emergency Provider Active Start: December 20, 2023 Henry Louise DO RES Active St art: December 20, 2023 Isai May DO Admit Provider, Atte nding Provider Active Start: December 20, 2023 Team Status: Active Member Role Status Dates Marisela Shaffer APRN Attending Provider Active PHYSICIAN NO FAMILY Primary Care Provider Active Team Status: Inactive Member Role Status Dates Trey العلي DO Primary Care Provider Active María Stevenson II, MD Attending Provider Active Team Status: Inactive Member Role Status Dates Rubio Pineda MD Attending Provider Active PHYSICIAN NO FAMILY Primary Care Provider Active Team Status: Active Member Role Status Dates PHYSICIAN NO FAMILY Primary Care Provider Active Team Status: Inactive Member Role Status Dates Marisela Shaffer APRN Attending Provider Active PHYSICIAN NO FAMILY Primary Care Provider Active Team Status: Inactive Member Role Status Dates Marisela Shaffer APRN Attending Provider Active Trey العلي DO Primary Care Provider Active Team Status: Active Member Role Status Dates Trey العلي DO Primary Care Provider Active Team Status: Inactive Member Role Status Dates Trey العلي , Primary Care Provider, Attending Fito payan Active Team Status: Inactive Member Role Status Tj Anderson MD Primary Care Provider, Attending Walter ider Active Team Status: Inactive Member Role Status Tj Anderson MD Primary Care Provider Active Gely Lin , RECORD [employer]ER Emergency Provider Active Team Status: Active Member Role Status Tj Anderson MD Primary Care Provider Active Marisela Shaffer APRN Attending Provider Active Team Status: Inactive Member Role Status Tj Anderson MD Primary Care Provider Active Julio C Ramirez MD Attending Provider Active Team Status: Inactive Member Role Status Tj Anderson MD Primary Care Provider Active Marisela Shaffer APRN Attending Provider Active Siphoner Relationship Specialty Start Date End Date María Anderson MD [address] [place] [address] PCP - General 02/24/23 Team Status: Inactive Member Role Status Dates María Anderson MD Primary Care Provider Active Tay Wood , DO Emergency Provider Active Nena Segura , DO RES Active Isai May , DO Admit Provider, Attending Provider Active Buck Glover , DO Other Provider Active Lenora Gonzalez , ANA Other Provider Active Elizabeth Hassan , DO Other Provider Active Bnoita Kingsley MD Other Provider Active Lico Bolivar MD Other Provider Active Dominick Lugo MD Other Provider Active Robert Avila MD Other Provider Active Yandy Lewis APRN Other Provider Active Vika Goyal MD Other Provider Active Manpreet Rolon MD Other Provider Active Jarod Hills MD Other Provider Active Kelly Hernandez , [employer]- Other Provider Active Emily Latham MD Other Provider Active Siphoner Relationship Specialty Start Date End Date María Anderson MD [address] [place] [id number] PCP - General 02/24/23 Team Status: Active Member Role Status Dates María Anderson MD Primary Care Provider Active St art: December 21, 2023 Swati Sagastume MD Emergency Provider Active Start: December 21, 2023 Hilario Skelton MD Admit Provider, Attending Provider Active Start: December 21, 2023 Team Status: Active Member Role Status Dates María Anderson MD Primary Care Provider Active St art: December 22, 2023 Swati Sagastume MD Emergency Provider Active Start: December 22, 2023 Hilario Skelton MD Admit Provider Active Start: December 22, 2023 Ashlye Merritt MD Other Provider Active Start : December 22, 2023 Radha Woodward MD Other Provider Active Start: ly 2023 Henry Clark MD Other Provider Active Start: [id number] [email or web address] Cherelle Schmidt , RECORD MAKER Other Provider Active St art: December 22, 2023 Kel Juan Jr, DO Other Provider Active S tart: December 22, 2023 Elver Cifuentes MD Attending Pr ovider, Other Provider Active Start: December 22, 2023 Rubio Waite MD Other Provider Active Start: 2023 Aspen Bishop MD Other Provider Active Star t: December 22, 2023 Mona Tyler NP-C Other Provider Active Start: December 22, 2023 Roly Morales DO Other Provider Active Start : December 22, 2023 María Stevenson II, MD Other Provider Active S tart: December 22, 2023 Ramses Garcia DO Other Provider Active Start: December 22, 2023 Team Status: Inactive Member Role Status Dates María Anderson MD Primary Care Provider Active St art: December 22, 2023 End: December 23, 2023 Swati Sagastume MD Emergency Provider Active Start: December 22, 2023 End: December 23, 2023 Hilario Skelton MD Admit Provider Active Start: December 22, 2023 End: December 23, 2023 Ashley Merritt MD Attending Provider Active S tart: December 22, 2023 End: December 23, 2023 Radha Woodward MD Other Provider Active Start: Selena vera 2023 End: December 23, 2023 Henry Clark MD Other Provider Active Start: J belia 2023 End: December 23, 2023 Cherelle Schmidt , RECORD MAKER Other Provider Active St art: December 22, 2023 End: December 23, 2023 Kel Juan Jr DO Other Provider Active S tart: December 22, 2023 End: December 23, 2023 Elver Cifuentes MD Other Provider Active Start: December 22, 2023 End: December 23, 2023 Rubio Waite MD Other Provider Active Start: 2023 End: December 23, 2023 Aspen Bishop MD Other Provider Active Star t: December 22, 2023 End: December 23, 2023 BRYSON DrewC Other Provider Active Start: December 22, 2023 End: December 23, 2023 Roly Morales DO Other Provider Active Start : December 22, 2023 End: December 23, 2023 María Stevenson II, MD Other Provider Active S tart: December 22, 2023 End: December 23, 2023 Ramses Garcia DO Other Provider Active Start: December 22, 2023 End: December 23, 2023 Team Status: Active Member Role Status Dates María Anderson MD Primary Care Provider Active St art: December 22, 2023 Swati Sagastume MD Emergency Provider Active Start: December 22, 2023 Hilario Skelton MD Admit Provider Active Start: December 22, 2023 Ashley Merritt MD Other Provider Active Start : December 22, 2023 Rubio Waite MD Other Provider Active Start: 2023 Aspen Bishop MD Other Provider Active Star t: December 22, 2023 ARGELIA Drew Other Provider Active Start: December 22, 2023 Roly Morales DO Attending Provider, Other Provider Active Start: December 22, 2023 María Stevenson II, MD Other Provider Active S tart: December 22, 2023 Ramses Gracia DO Other Provider Active Start: December 22, 2023 Radha Woodward MD Other Provider Active Start: Selena vera 2023 Henry Clark MD Other Provider Active Start: Steph celaya 2023 Cherelle Schmidt APRN Other Provider Active St art: December 22, 2023 Kel Juan Jr, DO Other Provider Active S tart: December 22, 2023 Elver Cifuentes MD Other Provider Active Start: December 22, 2023 Team Status: Inactive Member Role Status Dates María Anderson MD Primary Care Provider Active St art: December 23, 2023 End: December 29, 2023 Henry Clark MD Admit Provider, Atte nding Provider Active Start: December 23, 2023 End: December 29, 2023 Autumn Jones , ANA Other Provider Active Star t: December 23, 2023 End: December 29, 2023 Joy Chaudhry , ANA Other Provider Active Start : December 23, 2023 End: December 29, 2023 Analy Koenig , ANA Other Provider Active Star t: December 23, 2023 End: December 29, 2023 Shabnam Ley RN Other Provider Active Start: 2023 End: December 29, 2023 Macrina Rubio RN Other Provider Active Start: 2023 End: December 29, 2023 Bebe Ivey MD Other Provider Active Start: December 23, 2023 End: December 29, 2023 Tracy Bar DO Other Provider Active Start : December 23, 2023 End: December 29, 2023 Jose Kelsey MD Other Provider Active Start : December 23, 2023 End: December 29, 2023 Parviz Roth DO Other Provider Active Start: December 23, 2023 End: December 29, 2023 Hilario Skelton MD Other Provider Active Start: December 23, 2023 End: December 29, 2023 Ashley Merritt MD Other Provider Active Start : December 23, 2023 End: December 29, 2023 Jaguar Brewer MD Other Provider Active Start: 2023 End: December 29, 2023 Kiki Claros APRN Other Provider Active Start: December 23, 2023 End: December 29, 2023 Donnell Amos MD Other Provider Active Start: December 23, 2023 End: December 29, 2023 Best Junior MD Other Provider Active Start: 2023 End: December 29, 2023 Betty Buchanan MD Other Provider Active Start: December 23, 2023 End: December 29, 2023 Yoni Zarco MD Other Provider Active Start: December 23, 2023 End: December 29, 2023 Isai May DO Other Provider Active Start: December 23, 2023 End: December 29, 2023 Hola Parkinson MD Other Provider Active Start: 2023 End: December 29, 2023 Bunny Fowler MD Other Provider Active Start: Dec End: December 29, 2023 Tara Wright NP-C Other Provider Active St art: December 23, 2023 End: December 29, 2023 Madeline Ruvalcaba APRN Other Provider Active Star t: December 23, 2023 End: December 29, 2023 Bright Lopez MD Other Provider Active Start: December 23, 2023 End: December 29, 2023 Paul High MD Other Provider Active Start: 2023 End: December 29, 2023 Estiven Sharpe MD Other Provider Active Start: Dec End: December 29, 2023 Kang Enriquez MD Other Provider Active Star t: December 23, 2023 End: December 29, 2023 Buddy East MD Other Provider Active Start: 2023 End: December 29, 2023 Sherry Gonzalez DO Other Provider Active Start: 2023 End: December 29, 2023 Bj Hess DO Other Provider Active Start : December 23, 2023 End: December 29, 2023 Italia Moore APRN Other Provider Active Start: December 23, 2023 End: December 29, 2023 Home Marino DO Other Provider Active Start: December 23, 2023 End: December 29, 2023 Minna Patricia MD Other Provider Active Sta rt: December 23, 2023 End: December 29, 2023 Kaitlynn Lewis APRN Other Provider Active Start : December 23, 2023 End: December 29, 2023 Eleni Gill APRN Other Provider Active St art: December 23, 2023 End: December 29, 2023 Regis Winston MD Other Provider Active Start: 2023 End: December 29, 2023 Pedrito Prather MD Other Provider Active S tart: December 23, 2023 End: December 29, 2023 Fred Yanes , Other Provider Active Star t: December 23, 2023 End: December 29, 2023 Charley Butcher DO Other Provider Active Start: December 23, 2023 End: December 29, 2023 Marcelo Sharpe MD Other Provider Active Start: December 23, 2023 End: December 29, 2023 Norma Box MD Other Provider Active Start: December 22 End: December 29, 2023 Rubi Alston APRN Other Provider Active Star t: December 23, 2023 End: December 29, 2023 Aidan Knight MD Other Provider Active Start: 2023 End: December 29, 2023 Wesly Palmer MD Other Provider Active Start: 2023 End: December 29, 2023 Naheed Uriostegui RN Other Provider Active Start: 2023 End: December 29, 2023 Team Status: Active Member Role Status Dates María Anderson MD Primary Care Provider Active St art: December 24, 2023 Henry Clark MD Admit Provider, Atte nding Provider, Other Provider Active Start: December 24, 2023 Autumn Jones , ANA Other Provider Active Star t: December 24, 2023 Joy Chaudhry , ANA Other Provider Active Start : December 24, 2023 Analy Koenig , ANA Other Provider Active Star t: December 24, 2023 Shabnam Ley , ANA Other Provider Active Start: 2023 Macrina Rubio , ANA Other Provider Active Start: Ju ly 2023 Bebe Ivey MD Other Provider Active Start: December 24, 2023 Tracy Bar DO Other Provider Active Start : December 24, 2023 Jose Kelsey MD Other Provider Active Start : December 24, 2023 Parviz Roth DO Other Provider Active Start: December 24, 2023 Hilario Skelton MD Other Provider Active Start: December 24, 2023 Ashley Merritt MD Other Provider Active Start : December 24, 2023 Jaguar Brewer MD Other Provider Active Start: J [email or web address] Kiki Claros APRN Other Provider Active Start: December 24, 2023 Donnell Amos MD Other Provider Active Start: December 24, 2023 Best Junior MD Other Provider Active Start: 2023 Betty Buchanan MD Other Provider Active Start: December 24, 2023 Yoni Zarco MD Other Provider Active Start: December 24, 2023 Isai May DO Other Provider Active Start: December 24, 2023 Hola Parkinson MD Other Provider Active Start: 2023 Bunyn Fowler MD Other Provider Active Start: Dec Tara Wright , PTA-C Other Provider Active St art: December 24, 2023 Madeline Ruvalcaba APRN Other Provider Active Star t: December 24, 2023 Bright Lopez MD Other Provider Active Start: December 24, 2023 Paul High MD Other Provider Active Start: 2023 Estiven Sharpe MD Other Provider Active Start: Dec Kang Enriquez MD Other Provider Active Star t: December 24, 2023 Buddy East MD Other Provider Active Start: 2023 Sherry Gonzalez DO Other Provider Active Start: 2023 Bj Hess DO Other Provider Active Start : December 24, 2023 Italia Moore APRN Other Provider Active Start: December 24, 2023 Home Marino DO Other Provider Active Start: December 24, 2023 Minna Patricia MD Other Provider Active Sta rt: December 24, 2023 Kaitlynn Lewis APRN Other Provider Active Start : December 24, 2023 Eleni Gill APRN Other Provider Active St art: December 24, 2023 Regis Winston MD Other Provider Active Start: 2023 Pedrito Prather MD Other Provider Active S tart: December 24, 2023 Fred Yanes , Other Provider Active Star t: December 24, 2023 Charley Butcher DO Other Provider Active Start: December 24, 2023 Marcelo Sharpe MD Other Provider Active Start: December 24, 2023 Norma Box MD Other Provider Active Start: December 23 Rubi Alston APRN Other Provider Active Star t: December 24, 2023 Aidan Knight MD Other Provider Active Start: 2023 Wesly Palmer MD Other Provider Active Start: Selena vera 2023 Naheed Uriostegui RN Other Provider Active Start: J [email or web address] Team Status: Active Member Role Status Tj Anderson MD Primary Care Provider Active St art: January 06, 2024 Roly Morales DO Attending Provider Active S tart: January 06, 2024 Team Status: Inactive Member Role Status Tj Anderson MD Primary Care Provider Active St art: January 06, 2024 End: January 06, 2024 Roly Morales DO Attending Provider Active S tart: January 06, 2024 End: January 06, 2024 Team Status: Active Member Role Status Tj Anderson MD Primary Care Provider Active St art: January 21, 2024 Mick Putnam DO Emergency Provider Active Start: January 21, 2024 Donnell Amos MD Admit Provider, Atte nding Provider Active Start: January 21, 2024 Team Status: Inactive Member Role Status Tj Anderson MD Primary Care Provider Active St art: January 21, 2024 End: January 22, 2024 Mick Putnam DO Emergency Provider Active Start: January 21, 2024 End: January 22, 2024 Minna Patricia MD Admit Provider, A ttending Provider Active Start: January 21, 2024 End: January 22, 2024 Buck Glover DO Other Provider Active Start: January 21, 2024 End: January 22, 2024 Team Status: Inactive Member Role Status Tj Anderson MD Primary Care Provider Active St art: February 03, 2024 End: February 03, 2024 Roly Morales DO Attending Provider Active S tart: February 03, 2024 End: February 03, 2024 Team Status: Active Member Role Status Tj Anderson MD Primary Care Provider Active St art: February 03, 2024 Roly A Carmen , DO Attending Provider Active S tart: February 03, 2024 Team Status: Active Member Role Status Dates María Anderson MD Primary Care Provider Active St art: February 26, 2024 El Bliss DO Emergency Provider Active Sta rt: February 26, 2024 Bright Lopez MD Admit Provide r, Attending Provider Active Start: February 26, 2024 Team Status: Inactive Member Role Status Dates María Anderson MD Primary Care Provider Active St art: February 26, 2024 End: February 27, 2024 El Bliss DO Emergency Provider Active Sta rt: February 26, 2024 End: February 27, 2024 Bright Lopez MD Admit Provide r, Attending Provider Active Start: February 26, 2024 End: February 27, 2024 Team Status: Active Member Role Status Tj Anderson MD Primary Care Provider Active St art: March 08, 2024 Ramses Garcia DO Attending Provider Active St art: March 08, 2024 Team Status: Inactive Member Role Status Tj Anderson MD Primary Care Provider Active St art: March 08, 2024 End: March 08, 2024 Ramses Garcia DO Attending Provider Active St art: March 08, 2024 End: March 08, 2024 Siphoner Relationship Specialty Start Date End María Anderson MD [address] [place] [address] PCP - General Internal Medicine 11/04/22 María Anderson MD [address] [place] [address] PCP - ACO Reach 03/15/24 Frank Hook MD [address] [place] [address] Referring Physician Dermatology 05/14/23 Julio C Ramirez MD [address] [place] [address] Referring Physician Urology 05/14/23 Bonita Kingsley MD [address] [facility] [address] [place] [address] Referring Physician Cardiology 05/14/23 Siphoner Relationship Specialty Start Date End Date María Anderson MD [address] [place] [address] PCP - General Internal Medicine 11/04/22 María Anderson MD [address] [place] [address] PCP - ACO Reach 03/15/24 Frank Hook MD [address] [place] [address] Referring Physician Dermatology 05/14/23 Julio C Ramirez MD [address] [place] [address] Referring Physician Urology 05/14/23 Bonita Kingsley MD [address] [facility] [address] [place] [address] Referring Physician Cardiology 05/14/23 Siphoner Relationship Specialty Start Date End Date María Anderson MD [address] [place] [address] PCP - General Internal Medicine 11/04/22 María Anderson MD [address] [place] [address] PCP - ACO Reach 03/15/24 Frank Hook MD [address] [place] [address] Referring Physician Dermatology 05/14/23 Julio C Ramirez MD [address] [place] [address] Referring Physician Urology 05/14/23 Bonita Kingsley MD [address] [place] [address] Referring Physician Cardiology 05/14/23 Siphoner Relationship Specialty Start Date End Date María Anderson MD [address] [place] [address] PCP - General Internal Medicine 11/04/22 María Anderson MD [address] [place] [address] PCP - ACO Reach 03/15/24 Frank Hook MD [address] [place] [address] Referring Physician Dermatology 05/14/23 Julio C Ramirez MD [address] [place] [address] Referring Physician Urology 05/14/23 Bonita Kingsley MD [address] [place] [address] Referring Physician Cardiology 05/14/23 Siphoner Relationship Specialty Start Date End Date María Anderson MD [address] [place] [address] PCP - General Internal Medicine 11/04/22 María Anderson MD [address] [place] [address] PCP - ACO Reach 03/15/24 Frank Hook MD [address] [place] [address] Referring Physician Dermatology 05/14/23 Julio C Ramirez MD [address] [place] [address] Referring Physician Urology 05/14/23 Bonita Kingsley MD [address] [place] [address] [place] [address] Referring Physician Cardiology 05/14/23 Siphoner Relationship Specialty Start Date End Date María Anderson MD [address] [place] [address] PCP - General Internal Medicine 11/04/22 María Anderson MD [address] [place] [address] PCP - ACO Reach 03/15/24 Frank Hook MD [address] [place] [address] Referring Physician Dermatology 05/14/23 Julio C Ramirez MD [address] [place] [address] Referring Physician Urology 05/14/23 Bonita Kingsley MD [address] [facility] [address] [place] [address] Referring Physician Cardiology 05/14/23 Siphoner Relationship Specialty Start Date End Date María Anderson MD [address] [place] [phone] PCP - General 02/24/23 Siphoner Relationship Specialty Start Date End Date María Anderson MD [address] [place] [phone] PCP - General 02/24/23 Siphoner Relationship Specialty Start Date End Date María Anderson MD [address] [place] [address] PCP - General Internal Medicine 11/04/22 María Anderson MD [address] [place] [address] PCP - ACO Reach 03/15/24 Frank Hook MD [address] [place] [address] Referring Physician Dermatology 05/14/23 Julio C Ramirez MD [address] [place] [address] Referring Physician Urology 05/14/23 Bonita Kingsley MD [address] [facility] [address] [place] [address] Referring Physician Cardiology 05/14/23 Siphoner Relationship Specialty Start Date End Date María Anderson MD [address] [place] [phone] PCP - General 02/24/23 Siphoner Relationship Specialty Start Date End Date María Anderson MD [address] [place] [address] PCP - General Internal Medicine 11/04/22 Trey العلي DO [address] [place] [address] PCP - ACO Reach 11/06/22 Frank Hook MD [address] [place] [address] Referring Physician Dermatology 05/14/23 Julio C Ramirez MD [address] [place] [address] Referring Physician Urology 05/14/23 Bonita Kingsley MD [address] [facility] [address] [place] [address] Referring Physician Cardiology 05/14/23 Siphoner Relationship Specialty Start Date End Date María Anderson MD [address] [place] [address] PCP - General Internal Medicine 11/04/22 María Anderson MD [address] [place] [address] PCP - ACO Reach 03/15/24 Frank Hook MD [address] [place] [address] Referring Physician Dermatology 05/14/23 Julio C Ramirez MD [address] [place] [address] Referring Physician Urology 05/14/23 Bonita Kingsley MD [address] [place] [address] Referring Physician Cardiology 05/14/23 Team Status: Inactive Member Role Status Dates María Anderson MD Primary Care Provider Active St art: May 06, 2024 End: May 06, 2024 Bonita Kingsley MD Attending Provider Active St art: May 06, 2024 End: May 06, 2024 Team Status: Inactive Member Role Status Dates María nAderson MD Primary Care Provider Active St art: June 15, 2024 End: June 15, 2024 Gely Lin APRN Emergency Provider Active Start: June 15, 2024 End: June 15, 2024 Siphoner Relationship Specialty Start Date End Date María Anderson MD [address] [place] [address] PCP - General Internal Medicine 11/04/22 María Anderson MD [address] [place] [address] PCP - ACO Reach 03/15/24 Frank Hook MD [address] [place] [address] Referring Physician Dermatology 05/14/23 Julio C Ramirez MD [address] [place] [address] Referring Physician Urology 05/14/23 Bonita Kingsley MD [address] [facility] [address] [place] [address] Referring Physician Cardiology 05/14/23 Goals (unrecognized section and content) Goals may be documented in a n alternate section (unrecognized sect ion and content) No Status Records FoundNo Status Records FoundNo Status Records FoundNo Status Records FoundNo Status Records FoundNo Status Records FoundNo Status Records FoundNo Status Records FoundNo Status Records FoundNo Status Records FoundNo Status Records FoundNo Status Records Found INFORMATION SOURCE (unrecogn ized section and content) DATE CREATED AUTHOR 02/26/2022 [facility] DATE CREATED AUTHOR AUTHOR'S ORGANIZ ATION 04/05/2022 [facility] dical Specialist DATE CREATED AUTHOR AUTHOR'S ORGANIZ ATION 11/23/2022 [facility] DATE CREATED AUTHOR AUTHOR'S ORGANIZ ATION 02/25/2023 [facility] DATE CREATED AUTHOR AUTHOR'S ORGANIZ ATION 02/25/2023 [employer] DATE CREATED AUTHOR AUTHOR'S ORGANIZ ATION 04/18/2024 [facility] DATE CREATED AUTHOR AUTHOR'S ORGANIZ ATION 05/20/2024 [facility] DATE CREATED AUTHOR AUTHOR'S ORGANIZ ATION 06/14/2024 [facility] dical Specialists [facility] DATE CREATED AUTHOR AUTHOR'S ORGANIZ ATION 07/02/2024 [facility] DATE CREATED AUTHOR AUTHOR'S ORGANIZ ATION 08/18/[address] [facility] DATE CREATED AUTHOR AUTHOR'S ORGANIZ ATION 08/19/2024 [facility] FOR RECORDS PERTAINING TO PATIENTS WHO ARE OR HAVE BEEN ENROLLED IN A CHEMICAL DEPENDENCY/SUBSTANCEABUSE PROGRAM, SOME INFORMATION MAY BE OMITTED. This clinical summary was aggregated from multiple sources. Caution should be exercised in using it in the provision of clinical care. This summary normalizes information from multiple sources, and as a consequence, information in this document may materially change the coding, format and clinical context of patient data. In addition, data may be omitted in some cases. CLINICAL DECISIONS SHOULD BE BASED ON THE PRIMARY CLINICAL RECORDS. [facility] [email or web address] [facility]. provides no warranty or guarantee of the accuracy or completeness of information in this document.
[2024-08-23 11:53] LABS: Basophils Percent Auto 0.6 % (0.2-2.0); Eosinophils Absolute Auto 0.1 10^3/uL (0.0-0.7); Eosinophils Percent Auto 1.7 % (0.9-7.0); Hematocrit 34.5 % (42.0-54.0); Hemoglobin 11.1 g/dL (14.0-18.0); Immature Granulocytes Abs Auto 0.06 10^3/uL (0.00-0.03); Immature Granulocytes Pct Auto 1.3 % (0.0-0.5); Lymphocytes Absolute Auto 1.3 10^3/uL (1.2-3.8); Lymphocytes Percent Auto 28.5 % (20.5-60.0); Mean Corpuscular HGB Conc 32.2 g/dL (29.9-35.2); Mean Corpuscular Hemoglobin 30.7 pg (25.9-34.0); Mean Corpuscular Volume 95.3 fL (80.0-94.0); Mean Platelet Volume 10.3 fL (9.5-13.5); Monocytes Absolute Auto 0.7 10^3/uL (0.3-0.8); Monocytes Percent Auto 15.2 % (1.7-12.0); Neutrophils Absolute Auto 2.5 10^3/uL (1.4-6.5); Neutrophils Percent Auto 52.7 % (43.0-75.0); Platelet Count 126 10^3/uL (150-450); Red Blood Count 3.62 10^6/uL (4.70-6.10); Red Cell Distribution Width 14.6 % (11.0-15.0); White Blood Count 4.7 10^3/uL (4.0-11.0)
[2024-08-25 04:07] LABS: Haptoglobin 193 mg/dL (38-329)
[2024-08-25 18:08] LABS: Albumin 3.5 g/dL (2.9-4.4); Alpha-1-Globulin 0.2 g/dL (0.0-0.4); Alpha-2-Globulin 0.9 g/dL (0.4-1.0); Free Kappa Lt Chains,S 27.8 mg/L (3.3-19.4); Free Lambda Lt Chains,S 20.8 mg/L (5.7-26.3); Gamma Globulin 1.1 g/dL (0.4-1.8); Immunoglobulin A, Qn, Serum 220 mg/dL (61-437); Immunoglobulin G, Qn, Serum 1096 mg/dL (603-1613); Immunoglobulin M, Qn, Serum 95 mg/dL (15-143); Kappa/Lambda Ratio,S 1.34 (0.26-1.65); Protein, Total 6.5 g/dL (6.0-8.5)
== END 2024-08-23 11:05 | disposition home or self-care (01) ==
LOC: LAB 11:11
PROVIDERS: PCP Internal Medicine; Visit Provider Internal Medicine
DX: D64.9 Anemia, unspecified (principal)
CPT/HCPCS: 36415; 82746; 82784; 83010; 83521; 84155; 84165; 85025

== ENCOUNTER 2024-09-13 05:03 | Outpatient (RCR) | payer MEDICARE, OTHER, SELFPAY | END 2024-10-12 15:12 | disposition home or self-care (01) | LOC: MM 05:03 | PROVIDERS: PCP Internal Medicine; Visit Provider Internal Medicine | DX: Z51.81 Encounter for therapeutic drug level monitoring (principal); Z79.01 Long term (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; I48.91 Unspecified atrial fibrillation | CPT/HCPCS: 85610; G0463 ==

== ENCOUNTER 2024-10-04 13:48 | Outpatient (OUT) | payer MEDICARE, OTHER, SELFPAY ==
--- NOTE | 2024-10-04 14:16 | CT_ITS ---
The [address] [address] Patient Name: FANI TAY MRN: [id number] date: 1935 Sex: M Assigned Patient Location: CT Current Patient Location: CT Accession/Order Number: [id number] Exam Date: 10/04/2024 14:51 Report Date: 10/04/2024 14:57 At the request of: RONNELL CERRATO MD Procedure: CT lumbar spine wo con CT LUMBAR SPINE WITHOUT CONTRAST TECHNIQUE: Axial acquisition of the lumbar spine obtained with the sagittal and coronal reconstructed imaging.The CT exam was performed using one or more the following dose reduction techniques: Automated exposure control, adjustment of the MA and/or Kv according to patient size, or use of the iterative reconstruction technique. HISTORY: Chronic low back pain with radiation into the legs COMPARISON: 12/18/2022 FINDINGS: The last fully segmented vertebral pair is operationally defined as L5/S1. POST SURGERY CHANGES: None BONY ALIGNMENT: Similar mild L4-5 and L5-S1 degenerative anterolisthesis. SPINAL CANAL:Patent bony central canal LUMBAR FRACTURE: None BONY LESIONS: None KIDNEYS: No hydronephrosis. Renal cyst. Left renal atrophy/scarring. AORTA: No aortic aneurysm is seen. Extensive atherosclerosis. Colonic diverticulosis. Lower thoracic level: Unremarkable Severe L4-5 bony central canal narrowing. Mild to moderate L2-3 spinal canal stenosis. Mild L3-4 spinal canal stenosis. Assessment of disc herniation limited with CT examination. No obvious disc herniation seen with CT exam. CT/CT lumbar spine wo con IMPRESSION:Redemonstration of extensive multilevel discovertebral degenerative changes. No acute lumbar spine abnormality. Similar severe L4-5 spinal canal stenosis Impression dictated by: Trey Murray M.D.10/04/2024 2:57 PM Dictation Location: [place] Electronically authenticated by: [id number] Y Date: 10/04/2024 14:57
== END 2024-10-04 13:49 | disposition home or self-care (01) ==
LOC: CT 13:48
PROVIDERS: PCP Internal Medicine; Visit Provider Pain Medicine Interventional Pain Medicine
DX: M54.17 Radiculopathy, lumbosacral region (principal); M51.369 Other intervertebral disc degeneration, lumbar region without mention of lumbar back pain or lower extremity pain
CPT/HCPCS: 72131

== ENCOUNTER 2024-10-13 04:45 | Outpatient (RCR) | payer MEDICARE, OTHER, SELFPAY | END 2024-11-12 07:19 | disposition home or self-care (01) | LOC: MM 04:45 | PROVIDERS: PCP Internal Medicine; Visit Provider Internal Medicine | DX: Z51.81 Encounter for therapeutic drug level monitoring (principal); Z79.01 Long term (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; I48.91 Unspecified atrial fibrillation | CPT/HCPCS: 85610; G0463 ==

== ENCOUNTER 2024-11-13 07:47 | Outpatient (RCR) | payer MEDICARE, OTHER, SELFPAY | END 2024-12-08 14:43 | disposition home or self-care (01) | LOC: MM 07:47 | PROVIDERS: PCP Internal Medicine; Visit Provider Internal Medicine | DX: Z51.81 Encounter for therapeutic drug level monitoring (principal); Z79.01 Long term (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; I48.91 Unspecified atrial fibrillation | CPT/HCPCS: 85610; G0463 ==

== ENCOUNTER 2024-12-04 08:51 | Emergency (ER) | payer MEDICARE, OTHER, SELFPAY ==
[2024-12-04] VITALS (18 sets, daily range): BP systolic 110–129; BP diastolic 64–83; PULSE 66–102; TEMP 36.6; O2SAT 93–97; BMI 24.3
--- OUTSIDE RECORDS SUMMARY | 2024-12-04 09:00 | XMS_ITS | CCD ---
Author Organization [facility] Care Team Providers Care Assistant Property Manager Name Role Phone Trey العلي Unavailable Unavailable Pending Provider Unavailable Unavailable Milton Nolasco Unavailable Unavailable Milton Nolasco Unavailable Unavailable Bonita Kingsley Unavailable Unavailable Trey العلي Unavailable Unavailable Unavailable Vi Lin Unavailable Unava ilable Trey العلي Unavailable Unavailable Pending Provider Unavailable Unavailable Milton Nolasco Unavailable Unavailable Milton Nolasco MD Unavailable Unavailable Bonita Kingsley Unavailable Unavailable Javi Cunningham MD Unavailable UnavailFani Polanco Unavailable María Stevenson II Unavailable [phone] DO Trey العلي Primary Care Provider MD María Stevenson II Attending Provider [phone] MD Rubio Pineda Attending Provider NO FAMILY, PHYSICIAN Primary Care Provider Unava ilable BENJI Shaffer Attending Provider Unavailable Unavailable Dr. Bonita Kingsley Attending Anastasia Dr. Trey Sherwood Primary Care Unavai BENJI Armstrong Attending Provider [phone] BENJI Shaffer Attending Provider [phone] DO Trey العلي Primary Care Provider [phone] DR KRISTIN ROME Attending Unavailable DR TREY العلي Primary Care Unavailable GRICELDA NAVA Consulting Unavailable DR KRISTIN ROME Admitting Unavailable SHAIKH Fazal TREVINO Attending Unavailable FAWWAD, ROME H Primary Care Unavailable FAWWAD, ROME H Admitting Unavailable PAY ., DR HOANG Admitting Unavailable ZOHRA, DR HOANG Primary Care Unavailable PAY ., DR HOANG Attending Unavailable PAY ., DR HOANG Consulting Unavailable Mathis, Kathleen Consulting Unavailable FAWWAD, ROME H Primary Care [...] MCGUIRE ., DR KRISTIN Molina Admitting Unavailable FAWWAD, [...] MCGUIRE ., DR KRISTIN Molina Admitting Unavailable NADJA .GRICELDA Consulting Unavailable ZOHRA, DR HOANG Primary Care Unavailable MCGUIRE ., DR KRISTIN Molina Attending Unavailable MCGUIRE ., DR KRISTIN Molina Consulting Unavailable MCGUIRE ., DR KRISTIN Molina Admitting Unavailable ZOHRA, DR HOANG Attending Unavailable ZOHRA, DR HOANG Admitting Unavailable ZOHRA, DR HOANG Primary Care Unavailable FAWWAD, ROME H Primary Care Unavailable MCGUIRE ., DR KRISTIN Molina Admitting Unavailable MCGUIRE ., DR KRISTIN Molina Attending Unavailable ZOHRA, DR HOANG Attending Unavailable ZOHRA, DR HOANG Admitting Unavailable ZOHRA, DR HOANG Primary Care Unavailable FAWWAD, ROME H Primary Care Unavailable WEST, DR ORLY Dowling Consulting Unavailable MCGUIRE ., DR KRISTIN Molina Admitting Unavailable MCGUIRE ., DR KRISTIN Molina Attending Unavailable MCGUIRE ., DR KRISTIN Molina Consulting [facility]available [facility] Primary Care Unavailable MCGUIRE ., DR KRISTIN Molina Consulting Unavailable MCGUIRE ., DR KRISTIN Molina Admitting Unavailable MCGUIRE ., DR KRISTIN Molina Attending Unavailable [facility] ROME H Attending Unavailable [facility] Admitting Unavailable ZOHRA, DR HOANG Primary Care Unavailable DO Trey العلي Primary Care Provider DO Trey العلي Attending Provider [phone] MD María Anderson Primary Care Provider MD María Anderson Attending Provider BENJI Lin Emergency Provider María Anderson Unavailable Dr. Trey العلي Primary Care Unagrady Kingsley, Dr. Bonita Greenberg Referring Anastasia vailable Josr, Dr. Bonita Greenberg Attending Anastasia vailable Ema Watts Unavailable BENJI Shaffer Attending Provider MD Julio C Ramirez Attending Provider [phone] BENJI Shaffer Attending Provider María Anderson MD Primary Care Provider MD María Anderson Primary Care Provider MD Julio C Ramirez Attending Provider BENJI Shaffer Attending Provider DO Tay Wood [...] Provider MD Vika Goyal Other Provider MD Brian Rolonammed Namelani Other Provider MD Jarod Hills Other Provider David [facility] Kelly Burgos Other Provider MD Emily Latham Other Provider MD María Anderson Primary Care Provider MD Rubio Crooks Jr Emergency Provider DO Isai May Admit Provider DO Isai May Attending Provider [phone] MD Betty Buchanan Attending Provider [phone] MD Rubio Waite Other Provider MD Aspen Bishop Other Provider ARGELIA Tyler Other Provider Carmen, DO Roly A Other Provider Graham YOUNGBLOOD MD María Márquez Other Provider DO Ramses Garcia A Other Provider MD Swati Sagastume Emergency Provider MD Hilario Skelton Admit Provider MD Hilario Skelton Attending Provider MD Swati Sagastume Emergency Provider MD Hilario Skelton Admit Provider MD Ashley Merirtt Attending Provider MD Radha Woodward Other Provider MD Henry Clark Other Provider BENJI Schmidt Other Provider DO Fran Juan Jrct L Other Provider MD Elver Cifuentes Other Provider [phone] MD Henry Clark Admit Provider MD Henry Clark Attending Provider ANA Jones Other Provider Unavailable ANA Chaudhry Other Provider Unavailable Liberty RN Analy Other Provider Unavailable ANA Ley Other Provider Unavailable Ramiro RN Macrina Other Provider Unavailable MD Bebe Ivey Other Provider DO Tracy Bar Other Provider MD Jose Kelsey Other Provider DO Parviz Roth Other Provider MD Hilario Skelton Other Provider [phone] MD Ashley Merritt Other Provider [phone] MD Jaguar Brewer Other Provider Unavailable BENJI Claros Other Provider [phone] MD Donnell Amos Other Provider MD Best Junior Other Provider MD Betty Buchanan Other Provider MD Yoni Zarco Other Provider DO Isai May Other Provider MD Hola Parkinson Other Provider MD Bunny Fowler Other Provider BELKYS Wright-C Tara Choi Other Provider BENJI Ruvalcaba Other [...] Lewis Other Provider BENJI Gill Other Provider [phone] MD Regis Winston Other Provider MD Pedrito Prather Other Provider DO Fred Yanes Other Provider DO Charley Butcher Other Provider MD Marcelo Sharpe Other Provider MD Norma Box Other Provider BENJI Alston Other Provider MD Aidan Knight Other Provider MD Wesly Palmer Other Provider Gila, RN Naheed Other Provider Unavailable DO Roly Morales Attending Provider DO Mick Putnam Emergency Provider MD Donnell Amos Admit Provider MD Donnell Amos Attending Provider [phone] MD Minna Patricia Admit Provider MD Minna Patricia Attending Provider [phone] DO Buck Glover Other Provider MD María Anderson Primary Care Provider MD Rubio Crooks Jr Emergency Provider DO Isai May Admit Provider MD Betty Buchanan Attending Provider MD Rubio Waite Other Provider MD Aspen Bishop Other Provider [phone] Nayeli CUTTER DOWN-C Mona L Other Provider DO Roly Morales Other Provider MD María Stevenson II Other Provider DO Ramses Garcia A Other Provider MD Swati Sagastume R Emergency Provider MD Hilario Skelton Admit Provider MD Ashley Merritt Attending Provider MD Radha Woodward Other Provider MD Henry Clark Other Provider BENJI Schmidt Other Provider DO Kel Juan Jr Other Provider MD Elver Cifuentes Other Provider MD Henry Clark Admit Provider MD Henry Clark Attending Provider [phone] ANA Jones Other Provider Unavailable ANA Chaudhry Other Provider Unavailable Liberty RN Analy Other Provider Unavailable ANA Ley Other Provider Unavailable ANA Rubio Other Provider Unavailable MD Bebe Ivey Other Provider DO Tracy Bar Other Provider [phone] MD Jose Kelsey Other Provider DO Parviz Roth Other Provider MD Hilario Skelton Other Provider MD Ashley Mreritt Other Provider MD Jaguar Brewer Other Provider Unavailable BENJI Claros Other Provider MD Donnell Amos Other Provider MD Best Junior Other Provider MD Betty Buchanan Other Provider MD Yoni Zarco Other Provider DO Isai May Other Provider MD Hola Parkinson Other Provider MD Bunny Fowler Other Provider Adriana CUTTER DOWN-Jose Choi Other Provider [phone] BENJI Ruvalcaba Other Provider Unavailable MD Bright [...] Other Provider MD Pedrito Prather Other Provider [phone] DO Fred Yanes Other Provider DO Charley Butcher Other Provider MD Marcelo Sharpe Other Provider MD Norma Box Other Provider BENJI Alston Other Provider MD Aidan Knight Other Provider MD Wesly Palmer Other Provider Gila, ANA Farfan Other Provider Unavailable DO Roly Morales Attending Provider DO Mick Putnam Emergency Provider MD Minna Patricia Admit Provider MD Minna Patricia Attending Provider DO Buck Glover Other Provider DO Alec Bliss Emergency Provider MD Bright Lopez Admit Provider MD Bright Lopez Attending Provider [phone] DO Ramses Garcia Attending Provider María Anderson MD Primary Care Provider Frank Hook MD Unavailable Juilo C Ramirez MD Unavailable Bonita Kingsley MD Unavailable [phone] María Anderson MD Unavailable BONITA KINGSLEY Referring Unavailable JACKSONVILLEMARÍA Primary Care Unavailable BONITA KINGSLEY Attending Unavailable MARÍA ANDERSON [facility] Care Unavailable BONITA KINGSLEY Attending Unavailable BONITA KINGSLEY Referring Unavailable JACKSONVILLEMARÍA [facility] Care Unavailable BONITA KINGSLEY Attending Unavailable BONITA KINGSLEY Referring Unavailable JACKSONVILLEMARÍA Primary Care Unavailable Trey العيل DO Unavailable [phone] María Anderson MD Primary Care Provider [phone] Bonita Kingsley MD Attending Provider [phone] Gely Lin APRN Emergency Provider Radha Woodward Consulting Unavailable Hilario Skelton Admitting Unavailable FlushingMaría [facility] Unavailable Ashley Merritt Attending Unavailable Henry Clark Consulting Unavailable Cherelle Schmidt Consulting Unavailable Kel Juan Jr Consulting UnavailElver Schwartz Consulting UnavailRubio Cuello Consulting Unavailable Aspen Bishop Consulting Unavailable Mona Tyler Consulting Unavailable Roly Morales Consulting Unavailable María Stevenson II Consulting UnavailRamses Heller Consulting Unavailable Minna Patricia Attending Unavailable Minna Patricia Admitting Unavailable FlushingMaría [facility] Unavailable Buck Glover Consulting Unavailable Henry Clark Admitting Unavailable Autumn Jones Consulting Unavailable Henry Clark Attending Unavailable [facility] María [facility] Care Unavailable Joy Chaudhry Consulting Unavailable Analy Koenig Consulting Unavailable Shabnam Ley Consulting Unavailable Macrina Rubio Consulting Unavailable Bebe Ivey Consulting Unavailable Tracy Bar Consulting Unavailable Jose Kelsey Consulting Unavailable Parviz Roth Consulting UnavailHilario De Guzman Consulting Unavailable Ashley Merritt Consulting Unavailable Jaguar Brewer Consulting Unavailable Kiki Claros Consulting UnavailDonnell Olivo Consulting Unavailable Best Junior Consulting Unavailable Betty Buchanan Consulting Unavailable Yoni Zarco Consulting Unavailable Isai May Consulting Unavailable Hola Parkinson Consulting Unavailable Bunny Fowler Consulting Unavailable Tara Wright Consulting Unavailable Madeline Ruvalcaba Consulting Unavailable Dokristina, Bright E Consulting Unavailab Paul Ag Consulting Unavailable Estiven Sharpe Consulting Unavailable Kang Enriquez Consulting Unavailable Buddy East Consulting Unavailable Sherry Gonzalez Unavailable Bj Hess Consulting Unavailable Italia Moore Consulting Unavailable Home Marino Consulting Unavailable GhulamomaMinna eddy Consulting Unavailable Kaitlynn Lewis Consulting Unavailable Eleni Gill Consulting Unavailable Alahmad Alarekha Consulting Unavailable Pedrito Prather Consulting Unavailable Fred Yanes Consulting Unavailable Charley Butcher Consulting Unavailable Marcelo Sharpe Consulting Unavailable Norma Box Consulting Unava ilable Rubi Alston Consulting Unavailable Aidan Knight Consulting Unavailable Wesly Palmer Consulting Unavailable Naheed Uriostegui Consulting Unavailable Gely Lin Admitting Unavailable Gely Lin Attending Unavailable [facility] Primary Care Unavailable Roly Morales Admitting Unavailable Roly Morales Attending Unavailable [facility] Primary Care Unavailable [facility] Primary Care Unavailable Bonita Kingsley Admitting Unavailable Bonita Kingsley Attending Unavailable Ramses Garcia Attending Unavailable Ramess Garcia Admitting Unavailable [facility] Primary Care Unavailable Roly Morales Admitting Unavailable Roly Morales Attending Unavailable [facility] Primary Care Unavailable Bright Lopez Attending Unavailab Bright Rios Admitting Unavailab le [facility] Primary Care Unavailable Rubio Waite Consulting Unavailable Isai May Admitting Unavailable [facility] Primary Care Unavailable Betty Buchanan Attending Unavailable Aspen Bishop Consulting Unavailable Mona Tyler Consulting Unavailable Roly Morales Consulting Unavailable María Stevenson II Consulting UnavailRamses Heller Consulting Unavailable Julio C RAMIREZ Attending Unavailable Julio C RAMIREZ Attending Unavailable Julio C RAMIREZ Admitting Unavailable Julio C RAMIREZ Attending Unavailable Trey العلي [facility] Unavailable Marisela Shaffer Admitting Unavailable Marisela Shaffer Attending Unavailable Trey العلي [facility] Unavailable Copsey, Marisela M Admitting Unavailable Copsey, Marisela M Attending Unavailable [facility] Unavailable Copsey, Marisela M Admitting Unavailable Copsey, Marisela M Attending Unavailable [facility] Care Unavailable Copsey, Marisela M Admitting Unavailable Copsey, Marisela M Attending Unavailable [facility] Care Unavailable Copsey, Marisela M Admitting Unavailable Copsey, Marisela M Attending Unavailable [facility] Care Unavailable Copsey, Marisela M Attending Unavailable Copsey, Marisela M Admitting Unavailable Dolce, Erasmo R Attending Unavailable Dolce, Erasmo R Admitting Unavailable [facility] Unavailable [facility] Care Unavailable Copsey, Marisela M Admitting Unavailable Copsey, Marisela M Attending Unavailable [facility] Unavailable Copsey, Marisela M Admitting Unavailable Copsey, Marisela M Attending Unavailable Copsey, Marisela M Admitting Unavailable Copsey, Marisela M Attending Unavailable [facility] Unavailable [facility] Unavailable Copsey, Marisela M Admitting Unavailable Copsey, Marisela M Attending Unavailable [facility] Unavailable Copsey, Marisela M Admitting Unavailable Copsey, Marisela M Attending Unavailable Dolce, Erasmo R Attending Unavailable Dolce, Erasmo R Admitting Unavailable [facility] Unavailable Dolce, Erasmo R Attending Unavailable Dolce, Erasmo R Admitting Unavailable [facility] Unavailable Bonita Kingsley MD Unavailable [phone] Shiraz Blackwood Attending Unavailabl e Al-MarraShiraz gifford Admitting Unavailabl e Al-Wallace, Shiraz Mcconnell Attending Unavailabl e Sudarshan-Shiraz Gonsalez Attending UnavailMARÍA Shukla Referring Unavailable Shiraz Blackwood Attending Unavailabl e Sudarshan-Shiraz Gonsalez Admitting UnavailMARÍA Shukla Referring Unavailable MARIA FERNANDA LAWS Attending Unavailable MARÍA ANDERSON Attending Unavailable MARIA FERNANDA LAWS Attending Unavailable ROSALINDA CARO Attending Unavailable MARÍA ANDERSON Referring Unavailable MARÍA ANDERSON Referring Unavailable MARIA FERNANDA LAWS Attending Unavailable FRANK HOOK Attending Unavailable PETR PERLA Attending Unavailable BUCK GLOVER Referring Unavailable MARÍA ANDERSON Referring Unavailable MARIA FERNANDA LAWS Attending Unavailable ROSALINDA CARO Attending Unavailable MARÍA ANDERSON Referring Unavailable Allergies Allergy Classification Reported Allergen(s) Allergy Type Date of Onset Reaction(s) Facility Aminoglycosides (antibiotic) (1 source) Neomycin Drug Allergy 4 itch and rash, rash [facility] Bacitracin (1 source) Bacitracin Drug Allergy 4 itch and rash, rash [facility] Penicillins (antibiotic) (2 sources) Amoxicillin Drug Allergy 4 Swelling of Lip/Tongue/Thr oat, Anaphylaxis [facility] (20 sources) Amoxicillin; Translations: [Amoxicillin CAPS] Drug Allergy 4 Angioedema, Swelling [facility] Work Phone: (20 sources) Bacitracin; Translations: [bacitracin] Drug Allergy 9 Unknown [facility] (20 sources) Neomycin; Translations: [neomycin] Drug Allergy 9 Unknown [facility] (16 sources) Polymyxin B; Translations: [Polymyxin B Sulfate SOLR] Drug Allergy 9 Other [facility] [place] Work Phone: (20 sources) Penicillins; Translations: [Penicillins] Allergy to drug (finding) 4 Anaphylaxis [facility] (20 sources) Adhesive agent; Translations: [adhesive] Drug allergy 4 Unknown, Rash [facility] (4 sources) Bacitracin / Neomycin / Polymyxin B Drug Allergy rash [facility] Other (3 sources) Penicillin V Drug Allergy Unknown [facility] Other (20 sources) Amoxicillin; Translations: [Amoxicillin] Drug Allergy 2 Swelling of Lip/Tongue/Thr oat [facility] (20 sources) polymyxin B; Translations: [POLYMYXIN B] Allergy to substance 9 Rash and itch, Rash and itch, rash [facility] (1 source) Penicillin Drug Allergy Unknown [facility] Other (5 sources) Penicillins Drug Allergy 4 Angioedema, Other, Rash, Swelling, Unknown [facility] Work Phone: (20 sources) Penicillins Drug Allergy 4 Other, Rash, Swelling, Angioedema [facility] (20 sources) Wound Dressing Adhesive Drug Allergy 4 Rash [facility] (1 source) Penicillins Drug allergy (disorder) 5 [facility] Repository (2 sources) metroNIDAZOLE; Translations: [Flagyl] Drug Allergy [facility] Repository Medications Current Medications Medication Drug [...] 01, 2021 9:25am Start: 12-19-2020 End: 10-01-2021 [id number] actuat albuterol 0.09 mg/actuat metered dose inhaler (20 sources) beta2-Adrenergic Agonist Start: 06-13-2024 End: 06-13-2025 [...] MG tablet Indications: 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 (CMS/HCC) Take 1 [...] oral capsule (20 sources) Tetracycline-class Drug Start: 10-04-2024 End: 10-11-2024 doxycycline (Vibramycin) 100 MG capsule Indications: Acute non-recurrent pansinusitis Take 1 capsule (100 mg) by mouth in the morning and 1 capsule (100 mg) before bedtime. Do all this for 7 days. Take with at least 8 ounces (large glass) of water, do not lie down for 30 minutes after. 14 capsule 10/04/2024 10/11/2024 Active Start: 04-06-2024 End: 04-13-2024 doxycycline (Vibramycin) 100 [...] 10:48am enalapril maleate 2.5 mg oral tablet (10 sources) Angiotensin Converting Enzyme Inhibitor Start: 04-18-2024 [...] Active Multiple Vitamins-Minerals (PRESERVISION AREDS 2 PO) (20 sources) Multiple Vitamins-Minerals (PRESERVISION AREDS 2 PO) Take by mouth Active Wcrreadl-Cdl-Jo-Lut-Zeax anth (Macular Vitamin) 500-5-1 mcg-mg-mg tablet (1 source) Start: 024 take 1 tablet by mouth once daily Inptvpkh-Ehp-It-Lut-Vic xanth (Macular Vitamin) 500-5-1 mcg-mg-mg tablet Active [...] 27, 2017 12:00am May 08, 2017 1:00pm predniSONE 20 mg oral tablet (5 sources) Start: 10-04-2024 predniSONE (Deltasone) 20 MG tablet Indications: Acute non-recurrent pansinusitis , Wheeze Take two tablets once a day for 5 days 10 tablet 10/04/2024 Active traMADol hydrochloride 50 mg oral tablet (20 [...] Start: 10-28-2019 take 2 tablets by mo uth three times daily as needed traMADol HCl - 50 MG Oral Tablet TAKE 2 TABLETS BY MOUTH THREE TIMES DAILY NEEDED Quantity: 180 Refills: 0 Start : 28-Oct-2019 Active warfarin sodium 5 mg oral tablet (20 sources) Vitamin K Antagonist Start: 03-09-2024 take 2 tablets by mouth at bedtime warfarin (Coumadin) 5 MG tablet Indications: Coronary artery disease involving [place] heart without angina pectoris, unspecified vessel or [...] 4-6 HOURS as needed for pain 7 2 May 05, 2023 June 04, 2023 3:53pm [...] ointment Discontinued 1 APPLIC TOPICAL .w/dressings 60 May 07, 2020 12:00am December 10, 2020 9:35am as per wound orders Start: 05-07-2020 End: 12-10-2020 Start: 05-07-2020 End: 12-10-2020 Clobetasol Discontinued 1 AP PLIC TOPICAL .w/dressings 60 May 07, 2020 1:00am December 10, 2020 [...] ointment Discontinued 1 APPLIC TOPICAL .twice weekly April 01, 2023 11:00pm June 04, 2023 [...] Start: 12-03-2021 take 1 capsule by mo [facility] twice daily at mealtime Indomethacin 50 MG [...] Start: 02-25-2021 take 1 capsule by mo [facility] twice daily Minocycline HCl - 100 MG [...] Q4H as needed for Severe Pain 10 3 December 20, 2023 December 29, 2023 12:53pm Start: 12-20-2023 End: 01-21-2024 take 1 tablet by mouth every six hours as needed for pain Oxycodone 5 mg Tablet Discontinued 5 MG PO Q6H as needed for Severe Pain 20 5 December 29, 2023 January 21, 2024 7:38pm polyethylene glycol [id number] mg powder for oral solution (20 sources) [...] Start: 12-23-2023 take 1 tablet by chao th twice daily Sennosides (Senokot) 8.6 mg tablet [...] other part of lower limb] 04-08-2024 Chronic Conditions associated with dizziness or vertigo (20 sources) Dizziness and giddiness; Translations: [Vertigo of central origin] Onset: 3 04-06-2023 Episodic Conduction disorders (18 sources) Bundle branch block; Translations: [Nonspecific intraventricular block] 06-06-2023 Chronic Congestive heart failure; nonhypertensive (20 sources) Acute on chronic combined systolic and diastolic heart failure; Translations: [Acute on chronic combined systolic and diastolic heart failure] Onset: 3 Resolved: 1 04-06-2023 Chronic Coronary atherosclerosis and other heart disease (20 sources) Coronary arteriosclerosis; Translations: [Atherosclerotic heart disease of [place]ot[place] coronary artery without angina pectoris] Onset: 3 [...] Other aftercare (4 sources) Anticoagulant effect; Translations: [snf (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] Episodic Other aftercare (4 sources) Long-term current use of anticoagulant; Translations: [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] Episodic Other aftercare (5 sources) Encounter for therapeutic drug level monitoring; Translations: [ENC THERAPEUTC DRUG LEVL MONITORING] Onset: 3 Episodic Other aftercare (1 source) snf (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; Translations: [FDC CURRNT USE ANTICOAGULANTS] Onset: 3 Episodic Other aftercare (2 sources) Taking high risk medication; Translations: [Other custodial (current) drug therapy] Onset: 4 04-18-2024 Episodic Other circulatory disease (6 sources) History of transient ischemic attack; Translations: [Personal history of transient ischemic attack (TIA), and cerebral infarction without residual deficits] Onset: 5 02-27-2024 Episodic Other connective tissue disease (4 [...] diseases of veins and lymphatics (20 sources) Chronic peripheral venous hypertension; Translations: [Chronic [...] [Venous insufficiency (chronic) (peripheral)] 11-07-2020 Episodic Other ear and sense organ disorders (2 sources) Wax in ear canal; Translations: [Impacted cerumen, left ear] 10-04-2024 Episodic Other hereditary and degenerative nervous system conditions (1 source) Restless legs syndrome; Translations: [RESTLESS LEGS SYNDROME] Onset: 2 Chronic Other infections; including parasitic (20 sources) [...] causes (1 source) Wound 04-13-2023 Episodic Other injuries and conditions due to external causes (2 sources) Contusion; Translations: [Other injury of unspecified body region, initial encounter] 11-20-2024 Episodic Other lower respiratory disease (20 sources) Hypoxia; Translations: [Hypoxemia] 05-17-2019 Episodic Other lower respiratory disease (2 sources) Cough; Translations: [Acute cough] 10-04-2024 Episodic Other lower respiratory disease (2 sources) Wheezing; Translations: [Wheezing] 10-04-2024 Episodic Other nervous system disorders (4 sources) [...] sources) O/E - dysphonia; Translations: [Dysphonia] Episodic Other upper respiratory disease (2 sources) Congestion of nasal sinus; Translations: [Nasal congestion] 11-20-2024 Episodic Other upper respiratory disease (2 sources) Pain in throat; Translations: [Pain in throat] 11-20-2024 Episodic Other upper respiratory disease (2 sources) Bleeding from nose; Translations: [Epistaxis] 11-20-2024 Episodic Other upper respiratory infections (2 sources) Acute pansinusitis; Translations: [Acute pansinusitis, unspecified] 10-04-2024 Episodic Otitis media and related conditions (2 sources) Dysfunction of bilateral eustachian tubes; Translations: [Unspecified Eustachian tube disorder, bilateral] 11-20-2024 Episodic Peripheral and visceral atherosclerosis (20 sources) [...] 12-22-2023 12-22-2023 Episodic Calculus of urinary tract (20 sources) History of calculus of kidney; Translations: [Personal history of urinary calculi] Onset: 11-11-2023 11-11-2023 Episodic Cancer of bladder (20 sources) H/O: malignant neoplasm; Translations: [Personal history of malignant neoplasm of bladder] Onset: 10-11-2022 05-17-2019 Episodic Cancer of prostate (20 sources) History of malignant neoplasm of prostate; Translations: [Personal history of malignant neoplasm of prostate] Onset: 10-11-2022 05-17-2019 Episodic Deficiency and other anemia (20 sources) Anemia; Translations: [Anemia, unspecified] Onset: 01-28-2023 04-06-2023 Episodic Diabetes mellitus with complications (20 sources) Type 2 diabetes mellitus; Translations: [Type 2 diabetes mellitus with other specified complication] Onset: 01-11-2019 Resolved: 05-14-2023 05-14-2023 Chronic Diabetes mellitus without complication (20 sources) Prediabetes; Translations: [Prediabetes] Onset: 05-14-2023 06-26-2023 Episodic E Codes: Fall (20 sources) Fall; Translations: [Unspecified fall, initial encounter] Onset: 12-22-2023 03-23-2023 Episodic Fracture of lower limb (20 sources) Fracture of patella; Translations: [Unspecified fracture of right patella, initial encounter for closed fracture] Onset: 12-22-2023 12-20-2023 Episodic Mood disorders (8 sources) Mood disorders Onset: 06-13-2024 06-13-2024 Other [...] Onset: 01-09-2022 Episodic Other connective tissue disease (20 sources) H/O: gout; Translations: [Personal history of [...] Onset: 12-22-2023 04-02-2023 Episodic Residual codes; unclassified (20 sources) Tobacco user; Translations: [Tobacco use] Onset: [...] Test Name Value Interpretation Reference Range Facility .Interpretation:on 5 HCV Ab IA Ql Comment Invalid Interpretation Code [facility] Comment on above: Result Comment: Not infected with HCV unless early or acute infection is suspected (which may be delayed in an immunocompromised individual), or other evidence exists to indicate HCV infection. Performed at: [facility] [id number] PhD Robin Wayne Performed By: #### 2 [id number] #### [facility] [address] [place] [address] Comp panel: Leuk/Lym [id number] n 10-27-2024 Analysis and Gating Strategy Comment Invalid Interpretation Code [facility] Comment on above: Result Comment: 8 co charla analysis with CD45/SSC gating Technical-Analysis performed at [facility], [place], [address], [facility] [address], Director: Chapo Abrams, [facility], Performed By: #### 1 [id number] #### [facility] [address] [place] [address] Annotation comment [Interpretation] Narrative Comment Invalid Interpretation Code [facility] Comment on above: Result Comment: 1. K appa and lambda staining cannot be interpreted due to nonspecific light chain binding. Nonspecific light chain binding can sometimes be seen in the setting of increased serum proteins. Clinical correlation is recommended. B-cell gene rearrangement study may be considered to confirm or exclude a clonal B-cell process if clinically indicated. Repeat testing may also be useful. 2. The finding is non-specific and can be seen in both reactive/activated processes and neoplastic processes. If absolute monocytosis persists (monocytes >/= 0.5 K/uL and >/= 10% of leukocytes) without secondary etiologies identified, further evaluation of a myeloid neoplasm, such as chronic myelomonocytic leukemia, is warranted if clinically indicated. Recommend clinical correlation and follow up as appropriate. Performed By: #### 1 [id number] #### [facility] [address] [place] [address] Assessment of Leukocytes Comment Invalid Interpretation Code [facility] Comment on above: Result Comment: Willie a and lambda staining cannot be interpreted due to nonspecific light chain binding. There is no loss of, or aberrant expression of, the riley T cell antigens to suggest a neoplastic T cell process. A decreased CD4/T helper to CD8/T suppressor cell ratio is detected.CD4:CD8 ratio 0.4 No circulating blasts are detected. Rare granulocytes show left-shifted maturation. 16% monocytes are detected. Performed By: #### 1 [id number] #### [facility] [address] [place] [address] Clinical information Comment Invalid Interpretation Code [facility] Comment on above: Result Comment: Acco mpanying CBC dated 10/20/2024 shows: WBC count 6.1, Kadi 3.8, Lym 1.3, Mon 0.9. Performed By: #### 1 [id number] #### [facility] [address] [place] [address] Immunophenotyping study Comment Invalid Interpretation Code [facility] Comment on above: Result Comment: CD2 Normal CD3 Normal CD4 Normal CD5 Normal CD7 Normal CD8 Normal CD10 Normal CD11b Normal CD13 Normal CD14 Normal CD16 Normal CD19 Normal CD20 Normal CD33 Normal CD34 Normal CD38 Normal CD45 Normal CD56 Normal CD57 Normal CD117 Normal HLA-DR Normal KAPPA See Text LAMBDA See Text CD64 Normal Performed By: #### 1 [id number] #### [facility] [address] [place] [address] Laboratory comment Bunny (Report) Comment Invalid Interpretation Code [facility] Comment on above: Result Comment: Each antibody in this assay was utilized to assess for potential abnormalities of studied cell populations or to characterize identified abnormalities. This test was developed and its performance characteristics determined by [facility]. It has not been cleared or approved by the U.S. Food and Drug Administration. The FDA has determined that such clearance or approval is not necessary. This test is used for clinical purposes. It should not be regarded as investigational or for research. Performed at: -[facility] [address] [facility] [place] [id number] [facility] Performed at: TG [facility] [address] [place] [id number] [facility] Chenmuriel Antrentn Performed By: #### 1 [id number] #### [facility] [address] [place] [address] Pathologist interpretation (Unsp spec) [Interp] Comment Invalid Interpretation Code [facility] Comment on above: Result Comment: 1. B -cell clonality cannot be evaluated, see comment. 2. Relative monocytosis, 16% of leukocytes, see comment. Performed By: #### 1 [id number] #### [facility] [address] [place] [address] Pathologist name Comment Invalid Interpretation Code [facility] Comment on above: Result Comment: Дмитрий Ashford M.D. Ph.D Performed By: #### 1 [id number] #### [facility] [address] [place] [address] Specimen source Nom (Unsp spec) Comment Invalid Interpretation Code [facility] Comment on above: Result Comment: Anna pheral blood Performed By: #### 1 [id number] #### [facility] [address] [place] [address] Viable cells/100 cells (Unsp spec) Comment Invalid Interpretation Code [facility] Comment on above: Result Comment: 69% Cell viability in this sample is sufficient for analysis but is less than optimal. Performed By: #### 1 [id number] #### [facility] [address] [place] [address] Copper Lvlon 10-27-2024 Copper [Mass/Vol] 141 microgram/dL High 69-132 [facility] Comment on above: Result Comment: This test was developed and its performance characteristics determined by [facility]. It has not been cleared or approved by the Food and Drug Administration. Detection Limit = 5 Performed at: [address] [id number] MD Nelson Mclaughlin Performed By: #### 1 [id number] #### [facility] [address] [place] [address] Flow Interp 16 or moreon Flow Interp 16 or more Performed Invalid Interpretation Code [facility] Comment on above: Result Comment: Perf ormed at: -[facility] [address] [place] [id number] MDPhD Chenn Anjen Performed By: #### 1 [id number] #### [facility] [address] [place] [address] Flow Marker, Firston 025 Flow Marker, First Performed Invalid Interpretation Code [facility] Comment on above: Result Comment: Perf ormed at: -[facility] [address] [place] [id number] MDPhD Chenn Anjen Performed By: #### 1 [id number] #### [facility] [address] [place] [address] Flow Markers X 15on 10-28-19 25 Flow Markers X 15 Performed Invalid Interpretation Code [facility] Comment on above: Result Comment: Perf ormed at: -[facility] [address] [place] [id number] MDPhD Chenn Anjen Performed By: #### 1 [id number] #### [facility] [address] [place] [address] Flow Markers X 3on 5 Flow Markers X 3 Performed Invalid Interpretation Code [facility] Comment on above: Result Comment: Perf ormed at: -[facility] [address] [place] [id number] MDPhD Chenmuriel Anjen Performed By: #### 1 [id number] #### [facility] [address] [place] [address] Flow Markers X 5on 5 Flow Markers X 5 Performed Invalid Interpretation Code [facility] Comment on above: Result Comment: Perf ormed at: -[facility] [address] [place] [id number] MDPhD Jose Alberto Anjen Performed By: #### 1 [id number] #### [facility] [address] [place] [address] HCV Antibody RFX to Quant PC Roberto 10-27-2024 HCV Ab IA Ql Non-Reactive Invalid Interpretation Code Non Reactive [facility] Comment on above: Result Comment: Perf ormed at: [facility] [address] [id number] PhD Robin Wayne Performed By: #### 2 [id number] #### [facility] [address] [place] [address] HIV Screen 4th Generation wR fxon 10-27-2024 HIV 1+2 Ab+HIV1 p24 Ag IA Ql Non-Reactive Invalid Interpretation Code Non Reactive [facility] Comment on above: Result Comment: HIV- 1/HIV-2 antibodies and HIV-1 p24 antigen were NOT detected. There is no laboratory evidence of HIV infection. HIV Negative Performed at: [facility] [address] [id number] PhD Robin Wayne Performed By: #### 9 [id number] #### [facility] [address] [place] [address] Hep A IgMon 10-27-2024 HAV IgM IA Ql Negative Invalid Interpretation Code Negative [facility] Comment on above: Result Comment: A ne gative anti-HAV IgM result suggests no recent or current HAV infection. Performed at: [address] [id number] PhD Robin Wayne Performed By: #### 2 [id number] #### [facility] [address] [place] [address] Hep B Core Ab, IgMon 025 HBV core IgM IA Ql Negative Invalid Interpretation Code Negative [facility] Comment on above: Result Comment: Perf ormed at: [address] [id number] PhD Robin Wayne Performed By: #### 2 [id number] #### [facility] [address] [place] [address] Hep Bs Abon 10-27-2024 HBV surface Ab Ql (S) Non-Reactive Invalid Interpretation Code [facility] Comment on above: Result Comment: Non Reactive: Not immune to HBV infection. Equivocal: Unable to determine if anti-HBs is present at levels consistent with immunity. Reactive: Anti-HBs concentration detected at greater than 10 mIU/mL. Individual is considered to be immune to infection with HBV. Performed at: [address] [id number] PhD Robin Wayne Performed By: #### 2 [id number] #### [facility] [address] [place] [address] Hep Bs Agon 10-27-2024 HBV surface Ag IA Ql Negative Invalid Interpretation Code Negative [facility] Comment on above: Result Comment: Perf ormed at: [address] [id number] PhD Robin Wayne Performed By: #### 2 [id number] #### [facility] [address] [place] [address] CBC w/ Auto Diffon 5 Basophils/100 WBC (Bld) 0.7 % Normal 0.0-2.0 [facility] Comment on above: Performed By: #### 2 [id number] #### [facility] [address] [place] [address] Basophils/Leukocytes Auto (Bld) [Pure # fraction] 0.0 E9/L Normal 0.0-0.2 [facility] Comment on above: Performed By: #### 2 [id number] #### [facility] [address] [place] [address] Eosinophils (Bld) [#/Vol] 0.1 E9/L Normal 0.0-0.5 [facility] Comment on above: Performed By: #### 2 [id number] #### [facility] [address] [place] [address] Eosinophils/100 WBC (Bld) 1.0 % Normal 0.0-8.0 [facility] Comment on above: Performed By: #### 2 [id number] #### [facility] [address] [place] [address] Erythrocyte distribution width (RBC) [Ratio] 15.2 % High 10.9-14.2 [facility] Comment on above: Performed By: #### 2 [id number] #### [facility] [address] [place] [address] Hematocrit (Bld) [Volume fraction] 35.3 % Low 37.7-49.0 [facility] Comment on above: Performed By: #### 2 [id number] #### [facility] [address] [place] [address] Hemoglobin (Bld) [Mass/Vol] 11.7 g/dL Low 13.5-17.5 [facility] Comment on above: Performed By: #### 2 [id number] #### [facility] [address] [place] [address] Lymphocytes (Bld) [#/Vol] 1.3 E9/L Normal 1.0-4.0 [facility] Comment on above: Performed By: #### 2 [id number] #### [facility] [address] [place] [address] Lymphocytes/100 WBC (Bld) 21.7 % Normal 14.0-50.0 [facility] Comment on above: Performed By: #### 2 [id number] #### [facility] [address] [place] [address] MCH (RBC) [Entitic mass] 28.7 pg Normal 27.0-34.0 [facility] Comment on above: Performed By: #### 2 [id number] #### [facility] [address] [place] [address] MCHC (RBC) [Mass/Vol] 33.1 g/dL Normal 31.4-36.0 [facility] Comment on above: Performed By: #### 2 [id number] #### [facility] [address] [place] [address] MCV (RBC) [Entitic vol] 86.8 fL Normal 80.0-100.0 [facility] Comment on above: Performed By: #### 2 [id number] #### [facility] [address] [place] [address] Monocytes (Bld) [#/Vol] 0.9 E9/L Normal 0.2-1.0 [facility] Comment on above: Performed By: #### 2 [id number] #### [facility] [address] [place] [address] Neutrophils (Bld) [#/Vol] 3.8 E9/L Normal 2.0-7.5 [facility] Comment on above: Performed By: #### 2 [id number] #### [facility] [address] [place] [address] Neutrophils/100 WBC (Bld) 61.9 % Normal 36.0-75.0 [facility] Comment on above: Performed By: #### 2 385179 #### [facility] [address] [place] [address] Platelet mean volume (Bld) [Entitic vol] 8.7 fL Normal 6.4-10.8 [facility] Comment on above: Performed By: #### 2 [id number] #### [facility] [address] [place] [address] Platelets (Bld) [#/Vol] 127.0 E9/L Low 150.0-500. 0 [facility] Comment on above: Performed By: #### 2 [id number] #### [facility] [address] [place] [address] RBC (Bld) [#/Vol] 4.1 E12/L Low 4.3-5.9 [facility] Comment on above: Performed By: #### 2 [id number] #### [facility] [address] [place] [address] WBC corrected for nucl RBC Auto (Bld) [#/Vol] 6.1 E9/L Normal 4.0-11.0 [facility] Comment on above: Result Comment: Anna pheral smear review performed. Performed By: #### 2 [id number] #### [facility] [address] [place] [address] CMPon 10-20-2024 Albumin/Globulin (S) [Mass conc ratio] 1.3 Normal 1.1-2.2 [facility] Comment on above: Performed By: #### 2 [id number] #### [facility] [address] [place] [address] Globulin (S) [Mass/Vol] 3.1 g/dL Normal 1.4-4.0 [facility] Comment on above: Performed By: #### 2 [id number] #### [facility] [address] [place] [address] Protein [Mass/Vol] 7.2 g/dL Normal 6.0-7.8 [facility] Comment on above: Performed By: #### 2 [id number] #### [facility] [address] [place] [address] Albumin [Mass/Vol] 4.1 g/dL Normal 3.3-5.0 [facility] Comment on above: Performed By: #### 2 [id number] #### [facility] [address] [place] [address] ALP [Catalytic activity/Vol] 101 Int._Unit/L High 21-98 [facility] Comment on above: Performed By: #### 2 [id number] #### [facility] [address] [place] [address] ALT No additional P-5'-P [Catalytic activity/Vol] 18 Int._Unit/L Normal 6-46 [facility] Comment on above: Performed By: #### 2 [id number] #### [facility] [address] [place] [address] Anion gap [Moles/Vol] 13 mmol/L Normal 6-16 [facility] Comment on above: Performed By: #### 2 [id number] #### [facility] [address] [place] [address] AST [Catalytic activity/Vol] 28 Int._Unit/L Normal 5-43 [facility] Comment on above: Performed By: #### 2 [id number] #### [facility] [address] [place] [address] Bilirubin [Mass/Vol] 0.7 mg/dL Normal 0.0-1.1 [facility] Comment on above: Performed By: #### 2 [id number] #### [facility] [address] [place] [address] Calcium [Mass/Vol] 9.1 mg/dL Normal 8.9-11.1 [facility] Comment on above: Performed By: #### 2 [id number] #### [facility] [address] [place] [address] Chloride [Moles/Vol] 106 mmol/L Normal 101-111 [facility] Comment on above: Performed By: #### 2 [id number] #### [facility] [address] [place] [address] CO2 [Moles/Vol] 25 mmol/L Normal 21-31 [facility] Comment on above: Performed By: #### 2 [id number] #### [facility] [address] [place] [address] Creatinine [Mass/Vol] 0.9 mg/dL Normal 0.5-1.3 [facility] Comment on above: Performed By: #### 2 [id number] #### [facility] [address] [place] [address] Glucose [Mass/Vol] 96 mg/dL Normal 55-199 [facility] Comment on above: Performed By: #### 2 [id number] #### [facility] [address] [place] [address] Potassium [Moles/Vol] 4.2 mmol/L Normal 3.5-5.3 [facility] Comment on above: Performed By: #### 2 [id number] #### [facility] [address] [place] [address] Sodium [Moles/Vol] 140 mmol/L Normal 135-145 [facility] Comment on above: Performed By: #### 2 [id number] #### [facility] [address] [place] [address] Urea nitrogen [Mass/Vol] 23 mg/dL High 5-21 [facility] Comment on above: Performed By: #### 2 [id number] #### [facility] [address] [place] [address] Urea nitrogen/Creatinine [Mass ratio] 26 No Units High 10-20 [facility] Comment on above: Performed By: #### 2 [id number] #### [facility] [address] [place] [address] CRPon 10-20-2024 CRP [Mass/Vol] 0.1 mg/dL Normal <=1.9 [facility] Comment on above: Performed By: #### 2 [id number] #### [facility] [address] [place] [address] Ferritinon 10-20-2024 Ferritin [Mass/Vol] 42 ng/mL Normal 24-336 [facility] Comment on above: Performed By: #### 2 [id number] #### [facility] [address] [place] [address] Folateon 10-20-2024 Folate [Mass/Vol] 9.0 ng/mL Normal >=6.7 [facility] Comment on above: Performed By: #### 2 [id number] #### [facility] [address] [place] [address] Ironon 10-20-2024 Iron [Mass/Vol] 45 microgram/dL Normal 35-153 [facility] Comment on above: Performed By: #### 2 558231 #### [facility] [address] [place] [address] Iron Saturationon 10-20-2024 Iron binding capacity [Mass/Vol] 302 microgram/dL Normal 250-400 [facility] Comment on above: Performed By: #### 2 433003 #### [facility] [address] [place] [address] Iron saturation [Mass fraction] 15 % Low 20-50 [facility] Comment on above: Performed By: #### 2 [id number] #### [facility] [address] [place] [address] LDHon 10-20-2024 LDH 218 Int._Unit/L Normal 93-218 [facility] Comment on above: Performed By: #### 2 352905 #### [facility] [address] [place] [address] Retic Counton 10-20-2024 Reticulocytes/100 RBC (Bld) 1.8 % Normal 0.5-2.2 [facility] Comment on above: Performed By: #### 2 [id number] #### [facility] [address] [place] [address] Transferrinon 10-20-2024 Transferrin [Mass/Vol] 216 mg/dL Normal 200-370 [facility] Comment on above: Performed By: #### 2 [id number] #### [facility] [address] [place] [address] Vit B12on 10-20-2024 Cobalamin (Vitamin B12) [Mass/Vol] 510 pg/mL Normal 50-1500 [facility] Comment on above: Performed By: #### 2 [id number] #### [facility] [address] [place] [address] eGFRon 10-20-2024 eGFR 82 mL/min/1.73 m2 Normal >=59 [facility] Comment on above: Performed By: #### 1 [id number] #### [facility] [address] [place] [address] CT Lumbar spine WO contrasto n 10-04-2024 [place] [address] CT Scan Report Signed Patient: FANI CHUA MR#: [id number] : 1935 Acct:[id number] Age/Sex: 89 / M ADM Date: 10/04/24 Loc: CT Attending Dr: Buck Cerrato M.D. Ordering Physician: Buck Cerrato M.D. Date of Service: 10/04/24 Procedure(s): CT lumbar spine wo con Accession Number(s): [id number] cc: MARÍA ANDERSON [place] [address] Patient Name: FANI CHUA MRN: [id number] date: 1935 Sex: M Assigned Patient Location: CT Current Patient Location: CT Accession/Order Number: [id number] Exam Date: 10/04/2024 14:51 Report Date: 10/04/2024 14:57 At the request of: BUCK CERRATO MD Procedure: CT lumbar spine wo con CT LUMBAR SPINE WITHOUT CONTRAST TECHNIQUE: Axial acquisition of the lumbar spine obtained with the sagittal and coronal reconstructed imaging.The CT exam was performed using one or more the following dose reduction techniques: Automated exposure control, adjustment of the MA and/or Kv according to patient size, or use of the iterative reconstruction technique. HISTORY: Chronic low back pain with radiation into the legs COMPARISON: 12/18/2022 FINDINGS: The last fully segmented vertebral pair is operationally defined as L5/S1. POST SURGERY CHANGES: None BONY ALIGNMENT: Similar mild L4-5 and L5-S1 degenerative anterolisthesis. SPINAL CANAL:Patent bony central canal LUMBAR FRACTURE: None BONY LESIONS: None KIDNEYS: No hydronephrosis. Renal cyst. Left renal atrophy/scarring. AORTA: No aortic aneurysm is seen. Extensive atherosclerosis. Colonic diverticulosis. Lower thoracic level: Unremarkable Severe L4-5 bony central canal narrowing. Mild to moderate L2-3 spinal canal stenosis. Mild L3-4 spinal canal stenosis. Assessment of disc herniation limited with CT examination. No obvious disc herniation seen with CT exam. CT/CT lumbar spine wo con IMPRESSION:Redemonstratio n of extensive multilevel discovertebral degenerative changes. No acute lumbar spine abnormality. Similar severe L4-5 spinal canal stenosis Impression dictated by: Trey Murray M.D.10/04/2024 2:57 PM Dictation Location: [place] [address] Electronically authenticated by: [id number] Y Date: 10/04/2024 14:57 Dictated By: Trey Murray D.O. Signed By: 10/04/24 1459 DD/ 1457 TD/TT: Barrel Finisher: [facility] Radiology Radiologselena jackson MD - 10/04/2024 [place] [address] CT Scan Report Signed Patient: FANI CHUA MR#: [id number] : 1935 Acct:[id number] Age/Sex: 89 / M ADM Date: 10/04/24 Loc: CT Attending Dr: Buck Cerrato M.D. Ordering Physician: Buck Cerrato M.D. Date of Service: 10/04/24 Procedure(s): CT lumbar spine wo con Accession Number(s): [id number] cc: MARÍA ANDERSON [place] [address] Patient Name: FANI CHUA MRN: [id number]:[id number] date: 1935 Sex: M Assigned Patient Location: CT Current Patient Location: CT Accession/Order Number: [id number] Exam Date: 10/04/2024 14:51 Report Date: 10/04/2024 14:57 At the request of: BUCK CERRATO MD Procedure: CT lumbar spine wo con CT LUMBAR SPINE WITHOUT CONTRAST TECHNIQUE: Axial acquisition of the lumbar spine obtained with the sagittal and coronal reconstructed imaging.The CT exam was performed using one or more the following dose reduction techniques: Automated exposure control, adjustment of the MA and/or Kv according to patient size, or use of the iterative reconstruction technique. HISTORY: Chronic low back pain with radiation into the legs COMPARISON: 12/18/2022 FINDINGS: The last fully segmented vertebral pair is operationally defined as L5/S1. POST SURGERY CHANGES: None BONY ALIGNMENT: Similar mild L4-5 and L5-S1 degenerative anterolisthesis. SPINAL CANAL:Patent bony central canal LUMBAR FRACTURE: None BONY LESIONS: None KIDNEYS: No hydronephrosis. Renal cyst. Left renal atrophy/scarring. AORTA: No aortic aneurysm is seen. Extensive atherosclerosis. Colonic diverticulosis. Lower thoracic level: Unremarkable Severe L4-5 bony central canal narrowing. Mild to moderate L2-3 spinal canal stenosis. Mild L3-4 spinal canal stenosis. Assessment of disc herniation limited with CT examination. No obvious disc herniation seen with CT exam. CT/CT lumbar spine wo con IMPRESSION:Redemonstratio n of extensive multilevel discovertebral degenerative changes. No acute lumbar spine abnormality. Similar severe L4-5 spinal canal stenosis Impression dictated by: Trey Murray M.D.10/04/2024 2:57 PM Dictation Location: [place] [address] Electronically authenticated by: [id number] Y Date: 10/04/2024 14:57 Dictated By: Trey Murray D.O. Signed By: 10/04/24 1459 DD/ 1457 TD/TT: Barrel Finisher: [facility] Radiology Study observation (narrative) [facility] CT Lumbar spine WO contrastO rdered By: Radiologist Radiology on 10-04-2024 [facility] Work Phone: Coding Summaryon 09-20-2024 Coding Summary HTMLBase 64 XpnebjwrJGf1wRm+PGhlYWQ+P O7GGSRrJ11msGObkG8uO5LSVV lOSywgQVBQTElOSyIgbmFtZT1 kaXNjZXJu IC8+DL7rTUCxMmgtuYFhb8C9z OJ5J10fby0yOTvteWV2WEJiPu Fheqkjm3xoyVr3TKudUfdcZyW t WPExeE61TQO6qQ10Cr69dUXms HRjf6aebAk5OaOvTVToMZL9lZ beGJeyu0GuCMFeF03jfLRmw5E 6 MGKhkRdbpMVeDvFcuSV4qK2rA Ofwxtora9hdirweRav5en91zQ Rln4O7tKP2H0RxayV8EBGjrEJ g SixnySKYaY9bygbud0jxrqciL lUqBBZqYUf9JBs8DLEbeCxyHa UmZO40ZSN8RNLbckZhQ6IuZGD s tNvfNiT2b2L6Xc0RE4TFLowhU 1VNTUFSWTwvdGQ+BY89iy72H6 QpQvqqBvr8WETaAXP8lLJ8jP3 n QQUjMPozs1R2yND8D7OfsbHnk b6yy8bkCLFlELvhU86tbNLru8 B0TQDivAL3POHfkHxsIbXhbZ9 3 Oyc+RHHdfYtqb5HrHiunk3vzo 4yhpYb6MsorQJMmzlRyxMdcVX H2i0RxEo1iDDGfbLW9dFN5uE9 i SnUgElA7LTcjI125BdJxmZUcE ogcS15aW2MbhWP+UTBwUaz1SQ IrkJttGN6nO6UiHPZrjswisSM m hPyfRX0rLOWwamxcWLVmjH2eF CTpS4k5VpEfQnI8RTqrT9OsWK CgmxdbKa22zD0yWbOtBgR0OPa u R7FeznT1BCKsnNQiNVlhCQR7T 47mc6E0ZJEhALOpFCK3qMQ2mJ 1hbGlnbjogbGVmdDsgdmVydGl j JZdcEDrpZ282MYTjiQvyLyUsZ GluZyBEYXRlOiAgMDQvMDgvMj AyNTwvdGQ+JXGeJRO1lEttGBK n bGAaTPhwOy2joArmoNjyFN1sV AFmupwqEANoyY0ePTIyeVOhsW ceAZ8hURSliplfy385IwHwYBI 0 MHXpnFPeG6SqdW2rDvNoFNQqZ YIzZ5UeyLDaKApxX501KOejMk G4UKKvalEkA5YkBLZvvTqmTpO 0 a3T4Iz6Fv6OavqfrN9RmpAGdB tWbUecaMBl9D8MnQenstCI+PC 41QXUiTZ93NQh2LIC6dPmcBTk i WMIqS5McoA1dPnPrEHJlONLuO yc+PHRhYmxlIHdpZHRoPScxMD BhIlGvaUabDU7eCe4qWIPzDZN v aGsptGLgCuPex3hcGDIwOQvnW Y5eyKhzE2YraOP7USPlf8z7Ew 64D95bC9NfiIH+HNWxaLL5zPB 0 vT6eDnTrQiU8MAojR885TxJlb ZXqKorng4wye8ptfQd9YmU7BC VpfhYugGxuOQM6k3ZfFo78L37 s IHdpZHRoPSIxNSUiIHZhbGlnb p4niZ6aKf4+PWFfcBD7vFX2yY 9vDbMrJtG5UOnpJ387BnIshIV v Ddhoq0bbe1ybzFw9EcCeSUWbe yIbeZxxUDA5e7FlUy08I4UdbG lbs4WoDxf6sj26dLAcb4A4kMP 9 Y9PcOXBisqcnnFPgoAxhRZ8uA PNormdiAPDbnQ4qRPUtP7b9Nu OcSzB4POohJ9JqwgV8DFNaxVE g XVTujYVAeU2rrplwu8dhxjebD rEqTGMqCSh4KNh2VVKngElzWi RfBCP3GjH8BKH6hYUsfJ0upBs n kkwxwJ7xUru+GTN9jDOvlWBAY H5bLmjoiQC+KZWcXRS3wBcjRW exFHNsrM8pZUYyX9m6QePmLoK 1 RIyeW9OaxiO3TSIkzPTrFAQal GMEvO6actcyb2hyqlfyNqCjMB EfLZr0ERc0NVYzzQpeYrHnBDB 0 JcT3HFH4tJGaaW4trDsvvjxfm G9wOyc+CoicoYecJEH8GOs5G0 DbNrv4LMOphGuuXH9lbFLjOZo u Bz5ftOmkwSedYG9jCXVkikyqq 424JfZdw6oiCOHtdESpUZvhAP G8B59oo6H7KAZcPWXpEGW0dXA 4 zK1mjJbosjthpMQkkWlsrfCke KcxWJtoBXbaE644QXLinAsxTf XsWAc4J3BbAkl8SGKogKvnHG5 n fYYuHGrwPh8emYszyKjaRI3rA GFbglsdk051UpLsn7uyLFPgpX IjHLurSFU9N13rl7T6YRMaPFO w PZL2uLB8rE5roWmoueyqhPZnr RaovxFgmWwlLJtzPJhlD116EE CfpTliEhUsnQq8J2UnDyi5ZFY z lYgsHS3upYJwATjgKb5euIegu TagPO8nUEKosmuge911PxOkr6 ceKXDbkSWhHIckSQN3I60sh6F 6 ZIRiDTUiJBA7iMY4qQ8frLzvy jogbGVmdDsgdmVydGljYWwtYW jwK477HISnvWnbHxFdvJtrppN g CUxoJXb2A2PoRbdhyTM+PC90Y XZcRJ50mUUpsTKka7refJi7Ux ZzBJWbHGR2aEatDNygt8QhEHO t X84sgVCju6B5IHMnjYryjIQgH yLzmUW9iX5aMOnndtnmf2eijg yhNkffw4rgei42qH61P86rGAy p OJQrMDVaAXKePNZkkJcfzl8yc G9wIi8+HOOreDV0wSV1aS1kHO GyMxD3TOtkB899QrYevALyUtd j c5ant8skpCp0SfE9JLCdcrDpt XbvBZH5u7EqOu69D98zRFzuOJ TfZOBlLVDcKNEoeCqdna3fhT6 w Ii8+WLQmqEY2qUD0dY6tWfWbB wB3TGwvL749LzKtmVHpGpzdI0 2gK7DvwUK+MAMhEqy3VMZhaUe s YM7neDBrOFccVc2kYVR3QyVlM zJnBNuhF4PfJTDejiopxjdgyP X8CSOuYVHhaG48We2wtAghTAV w cXSCqR8ojchlz4kuzgbnFmIcL OKpIBl2NNu7AZJbiLwuDeUjJN S2SaU7NMV1tMSnyL5bcPxyfgy g zB6qJ6QjNTOxidgmOu80iE8uD eZyFwR2ZTjiEzl+RklTSCwgSk FNRVMgVzwvdGQ+RUNdSNJ3hBt l IXavRDCkdX9lXBAcZ6x4CcGqY vP7OKonI9KtMGGemnxnQa13cJ 2xMqZzWqK9APpdY2HlwqD9YWS w dJPlEFlpJOT5T39xf3S5ZZUbQ PVtNHS5dOM8rN9clOvlwtotwS SynGjjdyWlgMpkEMnvDYkxD16 6 VMHumOitAfBgDhP8FqG2StB5Y 0CtLlc3YHQaeXrmJZ9fiDQwTZ hoAd6neGrjlModEE6jHROlpxu w JXKpjK9nHEAtsPRkdWmpNX5zR RJvcadox470VwTgPHX1NYOcqL YtK0OeaF6oTiDtXRJgIRSyO6B l oWMkWYoeU544AMsbCcR4DGAyg fXuW0LxWETafJmyIoY7m1L8Zs 44OCBZZWFyczwvdGQ+PHRkIHN 0 eVttVZcuYOUxgX7lNBUfW1h4P mUnYiW0AQpoF9WjYXAkyygbXr 00qU3cVxRhLuE9STyfL0JowyI 6 THLavOIoMDvkDVS0R14sx5R8Q DOlYEVvOND7iKJ8lP9hwUvjqj ogbGVmdDsgdmVydGljYWwtYWx p V982RHIguZmhBv5TJXA5J4XvD sa0WKKdbJnvTN5ubRJtTHmjUi 9anFobtKqgTR0fOMJjggqcGSW k kM0vZKOcdHUxfIflUV8bGTVjt rqqv352LeYyAVH8KPUbdVKeF1 IbxP8aGpGtUTXbWCXoZ7CdrXN t FAjxH071LSqpMtW0CPLbmyKcJ 6ErIYQysNcfMhD2z6V6Vw6BLB wvdGQ+ZQ82tj77M9EiHubuJlv 0 FWMlZTL6tHB0xD7wFVXjONnsu 8T7gDO4L8LmeeTave4ng8alWU KqDAbuX95kfTUac3Y1ZAFpwDO 5 XAIeeYlsSjKadH36Kxq+PGNvb Wnkl4JeWpztu6rjx4kwoAc4Sa YmQBYupyNpbLlyWKD2p6YvPa1 8 W59dLYikKPGoYJRpMJTfJDNmj Wrwtc8uxU2dPm6+KJVjrNU0kH V9wF8tUlOlHoB4NGoaP621BpO v rHLaHwjtr0tzd3yrfTe2MvQmI KAnyvMsdBmqAVS8s8TfPb58U8 AcpPfby6AhAio8ww32pTDwh3P 5 yCL5Q0PsBERtgdspsFZosOouU W0uFJXpkdewAMItsQ8sQTBmS9 q2BhCbQnH3JOpdE1OouzU0SEW v mGJnLYYwpPEFaE1bscnhz8tgd himGgTfNAPwCRx2AHy3CBHnfN orRaXcKXR5XaP0DOF1lVFvrZ7 h zMkexurngJ1lYbc+ETv2q4lqx UHtCA6mpPM7BZ63EK23qYBwp1 W0wDZ2F6CrIKDafdehiabloUE 6 ZCHmRJYahX69Oy7ehFmlDh7fP VGcGRP3BXVysFHtL8GlcF9xZl OjMBGwJABzO5WbnIXrJLzyX62 6 AKgsJjI4QQOfvzEfY3FaJVGdp DwrKgG4y7W6Ja0QZX45XS10KD 28hMIws1L3sGZ3M7VcJZLtvkm t cccsqGJ4XXSxGBAslY89Ot8as UizWx7fLOBwXIS1ATYhzAYgL0 KioD6pDmUaEEPsBYXfM2BniAH t OEnvG851EZspKtR6GRIqizEaF 2DnBPSbgIolZnG8q1C8Wa9TRi 52HB23RD26uUWbz4Y4aIE4W8G h AQAiufeuxpyynMT3IIZiTPVlo M91Ii0klSzoYt2vZQGkSTT3KZ EvmQAlT3DtcQ1gXnYeBYOsKEY w D9MbkTYlOArfM388UGowOoS6T FBesnAiK6NzEKBcbLojMeQ3k5 A6Fl5QNNdprbe0B1FoLlhhhLW + KZ08UZDpPJ15dCIvaJPoy2ity Vw6UiUaOWSuWSH5uAtdGMltj7 VeBHJuH80jyOQxi2Z8KEQdrVr h cHN (more content not included)... [facility] Coding Summaryon 09-15-2024 Coding Summary HTMLBase 64 ZmlumbkgPFu3wPf+PGhlYWQ+P F6CNAZbC57eiDPsbY8nS2MWBM lOSywgQVBQTElOSyIgbmFtZT1 kaXNjZXJu IC8+FD7aPDReRstvjUIzb7U8t AI0M46rgj8cFMphnBQ9AILtHr Hiipkng5pzlGa7VCyjAnrkQmY t UOPshW62YWR6gB10Fq77kOJxe JJnm7ucfMz2VoRmBDGcHIH0eP adZVyuu3NcNCSnK53wzHVef7Y 6 PEEjzUgweJQnHpMjqCF5tO0qQ Edrzgocj4nylrezWtb7vc26tE Rtg2H0yOS7Z5DmepX8VVRcbAP g HmdlrUIDfN7llrikx8afidloF wOnXCSjLPa2UMf2THWzzDgqRa QeXS14AYU7CITatdEaM6BuYJX s lNzsMsC1i3D3Rj3LN1WQPwaxR 1VNTUFSWTwvdGQ+RH30zz28F8 CoRrrgJnh6OVUtBZG4oQE1kG5 n AZMjOCdtq2O9tLD7P6UfxxIap s5yg7lpIPMjHVurU12uoCEaq9 I2BWAnpKM9TBKvaQwwNiTnbE9 3 Oyc+MFKadOeql0VnFrusg2wty 5grdUx4YvolLBSejqVbhWikYM I7a6JqAw4mJXSrhDA1bDF4hM0 i YaBcKfB9WDkvV989FhZpiLYpD dopP17uL5SciEG+BWDaDpj1SJ BcvZpkTH8qK2DqALDftpujiYQ m hLvwQS1rTCMefklmJHXhiI2gY JAeL2z6RsCaZlT2ZWxxC3NyZC HkfrulTj81oA9jCuKrOwI1EZl u H8UlpcH5TNAksNKmEZltLUX8Q 25qp2P3AGKaWGBqHNV4mXL6iB 1hbGlnbjogbGVmdDsgdmVydGl j RHkeNYncX330CDPpzXkzBdKvK GluZyBEYXRlOiAgMDQvMDMvMj AyNTwvdGQ+BUYsCQK1aJnkTAH n cYOuMCzkXm7jcFgxsJvfUD5nQ QFauggaEFTzzK9iFURuqYNwmR dhQT0vSSLsyyvyh562WlLsWJS 0 EBZviVWfR7EffC7zEhNyZTKuI SHuU6BxyBVsVHxiG509XLvbDg K8FBPfvlDbE0UhYRRnaJnrTzZ 0 q6A6Zh4Mp2BgdenuR6JknWQeK qRfFxnaXGo4K3AxBkvojDL+PC 74WJRpGB31AJv0OKL5iYpjSUh i PTNrA4ApdX3oXbEdTEKkRCTmB yc+PHRhYmxlIHdpZHRoPScxMD DaMmFrgIvjLU8cCi3cZAZfEIE v aEogbCQhMtGyy1fcPZXwSHdpJ L2fiJanF6KycBG2SKKxu8q8Hi 90J79pD6LgvKU+FOKgfLJ5zEO 0 lM0vSjXqLqA9AQwuX409JxNlf VLnOwbyv6vue9kauNd1IwZ4YT VmdbVlxAeyQLG8b6YgWy76E08 s IHdpZHRoPSIxNSUiIHZhbGlnb g5hvV4cVp1+CMUxrNR7qYK1lC 7rIaJcUgR6QWosV664QhPehMN v Wsejg2jxb1xnmGe4PhHwQIQog tKcxDkuFRG0m9QnUk59P2ExhB vlx6WePbh2sw75jBBkg4L8pOS 9 Y6TjTOKiordcyMPjuElqQS9uY ERojcdjEMStiN2iUWYrG8i4If PoAzT5EIdcP3ElduU9ZPWrbON g SVFckIFVdA4rfkuxi7xpdiaqX kDhQRByVDb7THm9ADNauPriXg HhBSO1OeE3GUO9hBDizH7zfHw n qppjmH2fJgt+QRS6aQCtwIWMO W9yYpmxyAJ+YCJdXFR0yTzpWL teLINzeZ5wLAHzL1c5UhLxUeV 1 UDbiG7LuuwB4BIVhpIFdSHMad HGHdH2yhxwtq0smxynoYrBbYX FuQLg8UTi2PXRspJawBxLsDFM 0 XyD5UPE1uRHkkL2lyUblvppmd G9wOyc+YwxjvBqgDRD0RId0B0 UvPql5WSDoxNkpOD2dgPRxYWn u Hj4gqRkniWokWT3tDGUgbzqzm 713LnPtg4drTAWytLNkWNhtSH T9C82cm1L2TWDtKZMtVBM8dEN 4 tZ9xoTonhbmnnDUanZsarsBoc DlgTTcwXVooB245BCYkrVqxHp ClGHa8Y3HzAcx7BICxdPjmMJ7 n rKVbRRulHv4ytBcfwFwbIP3bW WVgbudpe633ViPfa1tpLSSykR GoKDfeYZT3E55di2A7PGRqTND w NWC6aIH6kK4gwYuipuvlaNPel MigzpIykGydRHeoZShtH018UW BzeFndBmFwdMx1S1DhNmw0RCM z iMlnMG9asSByBTkrIg6maNgah FrnLF7nTSPsrmnlo424FlJke2 rqQJHerAUtXPlmEPL9E99st4Z 6 NVOqGNFtBXJ4nED0uA8giEpbq jogbGVmdDsgdmVydGljYWwtYW qwT449GXVycOixAyLaxRbpxiJ g UMnnVZq8O9ShLuyatRB+PC90Y WHrII69rEBxiFKjk5zbxWg5On UbBDTfIQI2gSrnVNogs8VdTRQ t M66clKQih7Q8ZXYldJxmjADeL zTmvOU8qC7dKWrpyjiad2nwtl eoXthql7kylb32uB21H56vLZw p SAVhBTGoBGBeIBMcyOzhir0ta G9wIi8+QKHppTH9oDR5lU2uIC MyFfY0UErbK302WiJysJXcHff j z1ueb9bkqOg8DjM0GBJonvLek NdxQLM5n4XwMg67E01nSJtuTI TvAFXrZAXdKUZyaSwjyl2xrR2 w Ii8+RIBorBT7tPG9tT3jOyPzY lH5WTkcP664YqBxhLTmDyynU0 4qG7RurWC+MVRuDsb9ROSbwCg s KA7tyRVjXXkjGo6kPII4FhKyQ dKtQPtkK2YvBUKpcekpkykupB X5DPSmRADtiF27Uz4otAnhOHJ w hJBOoF2yrjxca7kkvnxhPnNdG PQcYBy7BSl3XYPrsJfdZnJcVU U9IgP4RMI6yKCktL8jwGwvddp g nY1dG7FvMKVtecdaMb10sB2pJ bAjNbQ9XAhkRcb+RklTSCwgSk FNRVMgVzwvdGQ+QOKtLDQ6wBb l NGteRURwjK3kMIQdE1e5NiAeC iL0ABcvC6OrAGQeyeypZf73fY 8cEjUuVkN3AOinC9HjsjW4LRX w vFKmYTolLKO7L80le0Q7BCUnW DSiHDG3eNY4eI0arAbcbmdfhO BykRgilkJnvIzhIJnlWTstZ86 6 XWKfzIceJeGeDlO2VcL9VgF7U 5FbMnb1TZAhvRptEJ5qmKQxIA exFr1fwWaprZnhGZ9oAXFphkf w OYGzlY2zNJMyjXXmpXdyCN0jQ ELrbzqzd458FhSbHQX2YLYwkS MaE6WxpT9zSsGwUMOhMXQcN0R l pQJuSPfeT258ZUzwSnM3EMMyb pClK1RkQCCdmNvpNaX4g9L8It 44OCBZZWFyczwvdGQ+PHRkIHN 0 uQikFAidXDHvfG3zYEMeZ6y2Y iUwRiG2OXibJ1ItHWGpogtnPz 23aY9bZrFdYyC2XTlvR1YsqzP 6 ORHbpICjSRhrNGK1R39vn0H9T NCuMZJeOKL2lSR6qJ3jrWzitg ogbGVmdDsgdmVydGljYWwtYWx p P133HDCklQxrHg8OZBZ1U4XpH xe2GCCjnVjrOV9roJNtJJrdJv 6xfRtzaTrzWG1bMZVxwekaSRM k tH5xQEDmkAEvmKpnYE2cAISap sacl020PrYbVAL3FHOcjCLeD9 NtzL8oUgTgELTkOFKyB4PpsOO t BVuaB872QHnfGmP2OTAnsaLnI 0AuACXdeUvcXtP0n2V4Ac9WGZ wvdGQ+RW48og76Q7GtZonpSin 0 FAYjXJF2tHZ2iJ7jXPXfKQkom 5R4nQY8T1NrcfRgxz6cl1npMQ WgHVjgL47qwRVen9X0JTZhaKS 5 WTZjmMtbNtRpoU85Ccq+PGNvb Zons9ZkHpgwy7ttk0jlcGd7Pd AyGDSafsOwvTxkAIH2c3OdHr9 8 F28oJXzyERXoGEEaIKAnMCAzl Tmfik8qrL0uVz1+RNXfoWD8oR A4xW2eKkAiBnQ7QBkzN000UgT v gYGhJbooi2xii1uotUd4AbQiE ZQsfbWovJttJDD4s0BrQr65F7 HhhJcmc7FlYeq6bk81nPFdk1P 5 jWQ8R8XjUYUupatkrLAmrHyyI V4qSAXyjfzpPBUqrV1tZXEtX2 e7ZnXeWaU4TDogN2ZsxdO1IIW v gNMiSZGjbWRIoV8eudbdu0uif qofUfYtXIHdFZn6ZPa8TMIneU dlUuPgJBY9OzK2BHL2lQGvuU8 h iVxsfwzfrL2bLqd+HJm5i5bwm KTiQC1nuQE0IV89WU15wZWkm0 T0aSQ7W8UlQONwgdimfmqweVC 6 MYFgJVKstR23He7ozUogHd6mI SWrFEK0DWObxVEhP2TfyP3fCh AbUKXeIRBqX3YzxZUiZEbiB66 6 BRftAgR7IGNeziQtF2KyPZEtm PqyWbG3y3P9Bh4NDV63BU77LM 21uHQrs7W0aOE5V0XySACwgji t esxptPA7CJAlABKghE25Fi6vj LkqSw7lHLKiLQD5ITXtiSHqL2 ZndD6jEuFyDJUdYCFkM6DghUW t QQcdL362CUyvNdL8OOKrbvXhA 4FrAYEtzHffLjJ5h7V7Up2KZy 77WE04NR24uHOdg8W8gNK8N9G h TKDmacujpbunwZP9DOAqJPQho Z49Vq3zxJvkSz3vKQCvEYN7DZ LuwLLjN6AdvQ2kJxDhYFSeKXE w H4RbaVNbMGsfY742RXvlAmU4A DQayrXiE7VxHZAluYvgRkM2r8 S5Wr2NJTfntta4Y0PxVivtdHG + VG84GFKnZM48uROzpDKed1ubr Ll0HdWqQMLfOCB0pMmzKWsmp4 JuHKGdT61nkBZyr2T7SOYqqMj h cHN (more content not included)... [facility] Coding Summaryon 08-29-2024 Coding Summary HTMLBase 64 GonsqbluRYb5aOt+PGhlYWQ+P H4LFDQsK42saOZhjD2kM0JQXN lOSywgQVBQTElOSyIgbmFtZT1 kaXNjZXJu IC8+FB7vKZXaUbyqcUFga9Z6d QH9W95nkp3wLPfbfFH5DOQmYq Bunorpz8gtxEk3DJxeNpasOoP t MSJzqH86GHC4qT70Zh29gHXke BEnk9qjjLe8NtZmGKLiJUV7dJ gmWWpmm6WbLKRmK88tgUZww3I 6 EYOqbRbtpZSuTbYkzJB8uH8nN Rawowerv8pwurxaTgl6tr47wT Qhf7A5gEE9N8PvaeU8IFDamHR g RplrgPEWxU1bvprtw7txnovcW kIuHCNbURv5DIm1MDThiQoxQs CoHY67IOU2TIMusnPiF6MbTOI s eLzjYsS5f4B4Nj0GE6XKWturQ 1VNTUFSWTwvdGQ+JZ47hp41C7 MiNkthOfg9AFIuDLZ8cCE3hD9 n OMCsBQiuh2O2vIU6S4GkvrFso b5np7psNJFzEHihJ91uaSSdh3 E8DEMleFS1XWHxzUriJlOhrK8 3 Oyc+QATacPrpd1VgMdtkg7xik 1wewWd3DcyyTIEuwfIkhVoiXT F1i5DyVg2sEWYicUD1hPM2lC1 i OrHpVpG8WIlsA390EcJmoKUeS mctW70qM0ZevMU+IPNpUhx0IR YgoJegOQ2uL5EsOULigbcusWB m uSfeCD4qJQRcprpwBNWreL0tR RDqR8x4OdLpRiZ2XDsuV9McEL SfmxdcFt81eL1bDfDoEbL7RQc u H8XkanQ6GWOigPDiTBbpHNP4K 78lh7D4AMHgYPDoOZK2aJN8bZ 1hbGlnbjogbGVmdDsgdmVydGl j NRadKCmuQ111CXAroHbkVfOzM GluZyBEYXRlOiAgMDMvMTcvMj AyNTwvdGQ+UXPcVZN6fUswBWR n jDHzEShkXq2xlPjbaRzcBI7qT VClpaoiYRPthN5sGZTabFWgdX dqMB4eMUXnwzbij579NvTjWWX 0 MORbvWToM9TgyR2dIqCbGGUlD OViM8ViuONeDFytU673VDteHw K7PPFtldUdZ1VwIXXysSnzPsU 0 m2Z9Fo9Pn9BrzexsF5RnmAFrO xAlSnbpXWv4W9YeArfhsPQ+PC 77UYMbFV68JBo9JOJ6hCoqLDh i NRDxX7FcuW0zUwTmANAwWIZoH yc+PHRhYmxlIHdpZHRoPScxMD TjVkIqpJpeJP1aZn0fVYKmBWY v dUqdiVPhLdDml6xiUELrHYsjG G8zvTtaY8FtcUT1TUKhs9n3Vj 88R01sV6FnuRL+HHYziUN7cRU 0 aI4mErIgIjY0ECxoQ068PuHkz HRyIlfhj2xyk6aryCy7MsB4ZY FdhmXjiKliVAJ2j7UvDc97F76 s IHdpZHRoPSIxNSUiIHZhbGlnb a0kaJ6sCx1+AZYcnSN9kIE9vR 6aThUuOpD1DHzdL199LaDfzZM v Yrhgw4zcj7lxpHe6WoWkRJNjk sEogSywSAA9r8GqQj18E7AuyL ozv5EqHmh0hc30cHLyo8P8nRD 9 F4HzPZSmrhmlrNAanXxaJL8rP HFcaqtoCXZzwU3tOBDwM9p4Fs MaXsU2IZmuW9EvtqO9WCUlkPE g DGKpwHORjY7mtgmms8jbjmqeA iZvSLQkNDm0QWi9QZFghVdkZn WkACA3KvM0WVI7pNHfvM4reZo n vhuecA3xQsg+YCX4pLAjrPUQY E5aFnrxuFO+AHHcZTZ2hGljNE nwUXOxmT7aKZHyS2d4YvCuTmZ 1 IBgaR2QhvoG9KDMhnAMrJZDug NOKqN8rgbmml7esljsrLxIcKM RgJAq9SNd0UXAftOkoXqMgTAS 0 ArW1YQU1tHNsyO9leZwsnugjr G9wOyc+DkxvxGlfRRZ8JKm1P3 EbUyi8LARgnKwbLY3npSNcGPb u Wk5ciBmwsWvfJM2lQAIcanpvu 132XkRsh7vbMVLlqADfDRnoZS B6E22ri8X9USYfJGZzKRX9qEP 4 uS1taCrdhefdxCFqvXpmhdZdl OxyCBabKRqdK684PUEtuGrfRr RcGYg8C1KtOhj5FSLgfPhnFY9 n iHMkIWrhWf4wkFdxzWymJC9oE KDzjijkz554UvEry0vlJPUuzU ZbWUarYUM7M70po9T6PXZtEGO w BRO4hFO5uB9gxFnwmndmtHDpx MxxroQfrXowDMyuHTkfR260DS KbhUjmBiHiuUz1Y9FrWjn7JRM z sQzsBP3kqWOqXWgrAp9qbJsgr AlbGP9pPLAbfghck076BcKcn8 spGTJrsSUhDIbsKNI9F30sx0G 6 FAArWGLwVNT7zLE3tZ8hbKnqc jogbGVmdDsgdmVydGljYWwtYW ebD241RVSubOjgHsAduTtpqpT g LSozITw2H8KqTqyarUW+PC90Y AAuZZ30wXQiuTXvp5iphIy3Iy OfNCVyJND1yQjeSXrpr1YgBAH t B46vhUYkg4A3SARnzWvjyEFpH zDklIM9dJ7cZAxwillrs2gdeh otPdxoj7icaf47cB71A65iYZt p ZVFtSBOjRGMvKKCzuMvnqo2jt G9wIi8+ZYDszZH6zEC6yK9wUC OcQfO5BSjiQ233OeWgiEFeYnu j x0mnv8mwgIk5DhH4CHHovfNan AweLTL9r7TrWn81H30tEEgjLH UgHIPuGYCpBXBzfNqxyq2knX4 w Ii8+NNLxoAR9gGB9mF8cGwDyX vM4HQhjM391OjRlqERwHejcO1 2tR1EtxZC+VXKzUjf8AOTtnFp s IS4agLNlBGpbXj4wXHJ9TiWyW dFwUJugF1SdGKFecvvksmzsjF I0BEPhTKNvhB70Cj3ihTlhCSB w dGYDjB8kgzxnl5bxivwnTkRcI QIiUOi1DMs2GVZowSpnEdBlXK I3QxH5AIJ4iNYtcT4irPqvcvc g sN4sT1CjLONinpmxWn43kU8uH bEqRiJ6MPalLmk+RklTSCwgSk FNRVMgVzwvdGQ+TXRzPKV4bAj l KAyrIPIdxO0hYKSfL9s0NsCaI yC4MLvpZ0RbLYPiebjsVm54tX 5oHhRcQtS3PPzgN1CkajG9AFG w tOGeJUzmLCR5V69vq3G4MRUuT VBiTNE0cNL1vF9ntGlzppzweW BwfOsdmiWfpVihCYkvMUgkS75 6 JBQpqVsxKoBsEcM5RtX8JpK2Y 2HhAfc8UPBwxOgyYY3rtAVxWH coUo4bfHlahDafMM9dHZBwaqf w GPZsvL5aKFLldIFqyKpzWB2fM CHfyajiz759CgZoXYJ9ZUTovU AeL1DtvE5rQuGuYYAhFXMfV5B l pVBnTVwmG864PNmtFhT9NABmi sFaC3QmIBJpjKpnLsB3j0P4Ty 44OCBZZWFyczwvdGQ+PHRkIHN 0 sHkhFIddPOQjvB5mZNLnV3t3Q hAbAoL0ESslM2BnMRSlujpiUd 00pY9sJsFvTqL5SRgkZ7UjhiJ 6 KVYklEJlIIgeURD8J44hk2J7F BDuBGQnYFB3zGG4dT0ucQgpeh ogbGVmdDsgdmVydGljYWwtYWx p G220TIQswFczFr2QZOE3U3QhT ef0FBRhtVovDG4hpRSzHJssKl 6ezAtaoDvgWX1jXKOnxgijASC k xJ6mEBMoiOMxeYgzEJ1hKZCyh jhur058HjCxQZF8ZATsdOHgV5 OkuR9nNaKmTIMbNFMdS1DcyVP t GEnlI029AFmjLyI9VBUptmQgH 2CkNPNtrJrlJwE5p8G5Pm4AQE wvdGQ+RH84rz69O7GzWrhfTdx 0 XQTqPUH0jNL4vL4qQQEaZGvul 6Y9nAQ7K4KolsZhza1bj4tyVZ OqRLcyG96aeSZwp2K4FBRjvKR 5 NQAvrSnyFvMtqY80Zzo+PGNvb Dvwm2RmQblot5mbk0wmeYk5Rf EwSEKkziAelMzhSXZ3v7WlMd9 8 F00wPFhmXLWrAGZnCEVgJHXvp Fwecb7rrO9xKq6+GVZqwNU7wE F7sV6pLkKyHrM6IAplC047RsS v gKBtZvlik6ucv5nkpNf1VpVmI DJcthFlrDiyIWC7r9AsAq36F8 OnsRsjm1ArBly7hj44zDPxb4Z 5 xFH0K5JvZBMedgbprVJmtCtnW C9jOZLbfmsbCXNupD6jCYBuL5 o2JvOuLqX8RSnuL9FecwM6YQG v wCDwWWPdcYWYlO4tsbvqq5jnc rfcCbGpSZZbTAy4ZPf4RPDcwH uiQjYpERQ0HaI5JBX0wWYkjK6 h uDznoeflcR1tNhm+HFl0f1bkr ZMmHN7miKA1AD51LI59pGEbl9 S3kSJ9F9UyVNJijtigotlhyCJ 6 VAVnNCHjyS96Ce3mxCqnMg2kE ICjEJK4WEHhlOQgA4NipF7fMc MkOWAjHMCmV4LvlYUgQEoxM41 6 DTlrVfL6KXWsiwMwR4OaJFSkt CtbHoT7y9Y1Bn0EAC51QN97KK 17cALkg7C7pBP8S6AwASYycid t cbgckFH0EGFfKVTpeV67An0rd BsfMt2jVKLhGVV6KYWnfGIyX8 JfyB3jVsDiADQyKCLeA1WhqLZ t LQhrX472QZwkIrQ9KNHtpgMlO 8XrVNQeqVsvYdU5b4R1Bg2LDu 89HG44XE08wMXod7J4lWH2H4U h ASBbcbykrntenDJ5PPPsXLTwn G06Uy7tpIgnJn7vVBSiVHE1HZ DdyTVzR6OipI6pUsOnHWFjXLN w P0NkuPShFQhqF523HIbhQpG8R PXjpzUtC8UsXVTbxOkpGhT3m9 H7Ad5XYNxyfko4R6YnVltnzNL + YE32NGJwEW61lIOciADmp8nga Ww4QcZuXUYyHRQ8eTnhFFmhe6 UdFTFxO06ztXXtl1C4RAKkkAo h cHN (more content not included)... [facility] Coding Summaryon 08-22-2024 Coding Summary HTMLBase 64 HkcpsnghWLm4vNd+PGhlYWQ+P F0CBQHaO87cyYKtyE1dU0EADR lOSywgQVBQTElOSyIgbmFtZT1 kaXNjZXJu IC8+CO0kGKReKuutjTLrx2Y6m MW8G58olb3qOFqaaHZ7GXDrWh Kwemivo8lggCu4YIqqMlgpRwJ t MVTzkP56UKW7iA45Gl54dMRkp TJwy5mfgDr3FaDxATFpMMB1rH ozJAhkn4PaROObJ62ybUCth1I 6 INTbbMnljHDaDaNtdYI6wK3kE Mcyqrelo2uwqadoFhn4hx48zM Phr3V3oVE9E5XxmmL2QVXmmFL g GlyjdZCLxA8gfisgr0xnemgmR iDlWBUyYYi9PSa1RFPdvZyjDn FyJT21VCE0IAHpnaBvK9WgPDX s eBpfTiH5x2P7Sp4WF9OARyawB 1VNTUFSWTwvdGQ+HS77lp88E5 NcWptrCtz6BQNnVRS4qMC2dF5 n BJTsEYurk5U5lZH2D0TmfcXss h4ud7qrISWkQCvnC92ctYZjy1 Z2AIQpjHO0COOfmAmfKcWaeY3 3 Oyc+INOoyVrvp4TbQrlmo8biw 9dwhZt5McxjZNQynpObpHgmKM R7m3SpPr2wEBMksSX6lRX2uA7 i AsNuOsQ3ALnnR502IfHfzCRfK jjxI66tR0LxxGX+ZCXqJsf8BT KgiQooAF4jC2VtHJZmoqclhOT m uPpvRT6gZXWnqsloRIKgcC1jD TUlN2p0LlMdYhY4LNinR4PjCJ AkqioyRd03gM6oPgCbLrH8LQy u M3LyxtU4VYIuhMViLFoyPYV0N 27vm6E0SCNwSFIwCOT2iZC4vQ 1hbGlnbjogbGVmdDsgdmVydGl j MMujVWjeW864ZGOyrWbuGbGxF GluZyBEYXRlOiAgMDMvMTAvMj AyNTwvdGQ+OFTsAUN9tNoaHQW n uCOrPTinUm6gtAjhpMlqRH2wT TUuriveFWJbbL5sKHTcmNJodP rrNU0cPFMjheujd237QvEnEKT 0 VICahGJwJ0FavP4bCcJzMZSqU PYsX0YdhLAuFFntD281OBpoUv B2NSPhdwOxS3EnKSPjnHklXnX 0 n6G5Ax4Si8DrnoqoQ1DlkCCbX bMlJlejEYj4C9MsRhemoPI+PC 21ZROlIV01TEa1BNQ7yZidIYj i IRHzF9YmpY0cFaNrJMYsRPNhN yc+PHRhYmxlIHdpZHRoPScxMD LyOnJnrKgyEF5hCx7hXFPoKJJ v eLtabJGnQhLdc0xhYDZbORzmF L9uiFkvW2IyqNM5KBRvl3k4Kl 14H37hE7JvkAP+RDHtrPI2xII 0 gK5lTdKhMuE1UPfaT660MdQjr RMsIatgq7dzd9rajLr9OrV2WV VqwuBtiLxqKER2i5BbEz95L35 s IHdpZHRoPSIxNSUiIHZhbGlnb l7btX2fPl8+PRLwqXW2cSH6iM 8qHaRyAaX3NDrlO375LwLmtLG v Nttac1haj6ljdGf2LmOdDBKmo lDwgMatZXY3t9DaPm40B9DsdJ lak9PvGaf8jj84cYGnf7L5eNQ 9 C6UfPBTzawiqwHQyeFsvDL7zK KGzschwGJNnjI2wVACaJ9y3Yf FmVlR6VYhfZ9DazsS0XRCeiXF g LTGsmEFGdG7dehvtl5zldjgpJ wWkCQVmSMz2QZm9MTOurIdaBc UoJOU8AjD2QAC8vHDdoF3ncEf n fokspS7nKjl+QRL5uVGlkUCTK M8xYdtkhOR+ITFyAJB9cYbhOE ziYPPxdC9gWZUbT6n8LsUrZhL 1 WDiiR7VcmyB4WORgiJZcIWIqd OHWiG7fhlwtw6pwixntQrNoLW VkZHa1HDa7RLOrvYhzCzUaQQK 0 AxP8ZEJ8jIKrdA7vjRdhfmvfo G9wOyc+SdyylAiaZKE9KPu2U7 HmJkn6KNNcnMovML4nvAInWRq u Pk9kbCsehQxzPI5pREMkwnnfc 788TdGqt3xhYNGpsYAnUHvgOI M9V41ux1M9IRLnTDRuMLV2xDZ 4 xV4vrMtmurdfsVSouVulynBac MlcGWjlLXtoD808XHLrnYgdMi KmBCb6R9NuUuk2UVCypUipZX1 n bTHvTItuKq2cgKbpfXarHP6nU WLfuvwrr333AwJua4jpTFIitQ YqLJhhGJC2U40yj1K3IXJzMDD w YLD6iEK0hL2znLatlxxqjHRkd IvebgXnqPntKYndDJxmM482MT JsjBzpIxUpkHg9V5BzVsw0TPT z hSeeVY6hlPUlXBvoHb1tlIuwx UugIV5uKUYzfgtdy021IoFpk7 jyVAGyqXFmQWsuNRN2V11wa4W 6 SWIiUUUbKEU9rDT5nV2ztGvuq jogbGVmdDsgdmVydGljYWwtYW zlO081HGXdwOemKlIfkYalidD g JWwjETu5H6IlSrgteKI+PC90Y TGnNG06rCBkiTYvy6hnnBr7Kb GmCMXwQMQ2gVsuHNymz8QpLYL t G91bjTXva2E8FLPnuYrloSDiC qIbcSP2zV3aVEdkihugc8zcip rlUlzgv4hvcc15eM43R34wIXc p BTHsXBQcIKWtZDRuaDfelz3jo G9wIi8+WKWdkIJ5eWL2zW3eOR WnOcW2FNubD441UuZgzUYtUmt j v1cah6vyyEw7RdG4ZEVheuQsh EyhEJD3o8ZfEy82Y24jBJizZR IaUKVnUFIfWEPhnYglje5wgT7 w Ii8+HPEmlDT2gED1cF4bKeCxJ yN4ZEitB100DkYheNUxTtmjH5 8vG4HhjKL+LGCtHos1XYEvbZz s LY8erJHzUMprAf0rGFK5FjFoU hWzMFeqN0RlBHWsamowehxyzM D8AVTcGOUdmV04Fo5tfJftNGO w oVBNoO5qagwli7wpsifxKwZzY NNaPRq5AEp4ZHZavOueMzBcLL C4NrM4QGO5wKDcqJ5itRhvtgu g qO3dA5ZvBCKdadyeKo61iW4bQ hPrUjM4EOywLyh+RklTSCwgSk FNRVMgVzwvdGQ+KWKuNJV8nJf l HPkjGOHvdE5xKASvF2q7QkOlI tS8IZwhE4DiFSDesdikGu84dN 5qIiXnBmW8LQkjT0GkkaU0GAP w sLNtGCwdBOW6D23du0Z6VQApW IOoJRJ3qRF3sH9vlBpkymbubZ YyqIipouRnhXnuOUuxFQzzR03 6 ROVcrDkuLdHlBpB4HwV2WzG4R 4CmEvr3OPKwnFokFF9cmSOfUR xlAo5rbFyoqMyuUU0aYKIwiqe w RHZskA0hSBOubMZbqPtuJI1aQ QEfwhrii925CqTnTCE4ISPabU IaP0AsuE4zLcMpUEYwOVGjJ1T l uGHyECppL643UXjsOmB3CNGzs qIqZ5MlBLMzpTomUvV8e8K0Vk 44OCBZZWFyczwvdGQ+PHRkIHN 0 mYsaSIszGGXmsN9eCVYaD7t3P mMtAtA6NZmmL5KwQKZzofmpJf 01wD1qZsWuKlB8CKqiR3PzzbF 6 GBUfkKWpRZngRZF4F93th8Q0Y DKuCYJlJJU8uTV9dG3apFoxyg ogbGVmdDsgdmVydGljYWwtYWx p L206FMQgpXgoMg7ERKO5K8YtV pz8SZKqsWckIF0enGKnMFfuOi 1mdKcomRzrQA3jIIYkotchZXB k uQ9zOWEelEMpwLryDH7zKTFmz vyeu775MtVdKCD1AGPweQCcR2 GkwX2bLaDdEOCsWEUkW0VseYD t SBagC839MMvrHlU6FKEwqyLbN 1TlYICfhZmpJiT5c9E7At6UOV wvdGQ+JD57rm79S7DhTgbsZis 0 WMElXWD4fBZ4lI1kZUBdCDoek 1X6jDU5C0DumvTdwb4ys8obZI QuFCmbC38gcPAdf4S1XEItgEJ 5 PTYqrNqxQqTqpI79Ddr+PGNvb Ydkg1QhBxhwp4tbz1itvAr3Fh XsYTBonnGozBoqEBM2g9TsXz6 8 Q69pEJhrTFHyRBVpZTApXLFet Tjfdg4krD1jMf2+ZAYliSA0kG B3fB4pRuTwCvG8ATpmN713RiN v sZYkIurvn2auz4wofAe5McGgF NTnruYihHjnVLN3f3OdEw00A8 GtcLyvh1QzSao3nj68fZDfa2C 5 aGZ9K7KxQIRthklgmUAzmEjdQ H4zGVNhkirnFRByrJ1zQXHoW4 l8HsXmDhY6HCuhI5AvjtF8XZY v zELjTMVyhWLItL9aqjjok8luo fhuLpBeNDPyZZe6VTv4JEZxtA icBwZvFAE2CgT3UJX5iZVuxX7 h sTayfwjppZ1mQse+UZm8m3tti YUlMU4ctNQ0XI47UA69mBByl9 S0cBI0E9VdYCJcgbkrwzdvyPH 6 EHFiKHFnnI59Qz7bpLusZh1zZ EQrBKA4HQYzrJZnP0FvzM9qLv MfZQPxZOXsP2DsgGNeXKklI05 6 NTrjLbN6FQXwlvTyU6QaBGNbk QdyDzL6n2O3Av6PDP88NY20TH 08eKXww0N2iYB8Q4HcZYVpfme t umzlrHI7ADPzFMFgkW99Ou9ha FpoAx0tMJDbYMC8MDQcsKNcW9 CquY2tIcRrXPAzWAFnV0QajPP t MHrbX323MOrrRsL7UYScmmEkA 2LlFORwaFvaEgQ3u7N4Eh7EFk 38VA82EX68sANxg8Y6qVI6X0O h YAUcrrhpejilpLD9MKXaQFEja U22Hf4lyMppHf3cARQkCBH6TR IiuHFaJ3RzbT2wLdQxGRJiXTU w G6UokFAeEFucZ629HKokEwO3U KQxvbDwN1VcNCIefJzgWnV5r0 A5Sm5NFSqewbv0P5IiWsvcdOF + IE88UZIzJT20uBYxaBEta0poa Wx5EuUvTWOaVWU9eNgzXZywm9 JzUDDjV77rcDXak7P4QLDfoAp h cHN (more content not included)... Normal [facility] Fish and Urine Cyt o ([facility])on 08-16-2024 UVFISH & UC Diagnosis Info Invalid Interpretation Code [facility] Comment on above: Result Comment: A:Ur [...] with cytology and cystoscopy results. * CPT: 48590, 16017. 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 Electronically signed by : on: 08/16/2024 13:39:45 Performed By: #### 1 [id number] #### Blue [facility] [address] [place] [address] Consent Formson 08-09-2024 Consent Forms [id number] FF [facility] Coding Summaryon 08-08-2024 Coding Summary HTMLBase 64 SfpzzlujOQm3yLi+PGhlYWQ+P S1KNPCxC15dfUVuiN4tI0EZHE lOSywgQVBQTElOSyIgbmFtZT1 kaXNjZXJu IC8+MS0xFDEeYdygzQJmp9K5d PW2U92qxv4vQYgraSW3IOTzYm Rvrrdtb6sbiOm4ZKwlXpqhAeI t NWKogS46HNX8xU09Ya91xTBsd XDzo3igmPt5LwCgCQXpEOL4fJ zfEBtgf4UzSLBsO92xsTRik6Y 6 POAmkAndsWIxEgPerVC7fI7oT Jggpoofl8uagrutVfo5wz10xJ Yik4Z5sJV0H8FdmsP3VUFciXR g BcgudNOHzS4esrmcn9kjqhxeD tJqGWBoAKp6XSo2SGRkgPjxKb LoWC87WVK3AXSothKeN9HwBWM s eMllFoT8g9K2Yg9VD3QUZyesI 1VNTUFSWTwvdGQ+KX40vh96Y2 EsXrhnLac9VCHsLPN8aST5zH1 n RAKhLAwoz9B9rKZ2C8NgahYhi p9te3riMTMhTJyfK07beCAfh6 U7MUFscJM3RAKwlFfiRpKixW1 3 Oyc+AFRzrOqub7EwAolej8tbb 3yvyLs2MnxyGRWbnyXbpLhzQL M4r9ZiTh3fQKUxjSS7qIS2sK2 i MtIdHuN7DWpsM629LzHpxSRiJ qguS57eQ7AwcAE+SDBqNor3MJ NtqPgyHB3iY4DvFUFrfmfzySB m iVrgET6qLTBseqatGCUvrX6lK RZsK8m1YeGmZeX0LLtrA4WuWD InfapfRd51aM4cWlRzJmT8LHi u O6PfeyM7NOBnqIUrQNbiCDX1F 31vx6M9MDHlYYJiPXN3fBY5bJ 1hbGlnbjogbGVmdDsgdmVydGl j MZtaCIydU469KYLviUcsUhKmO GluZyBEYXRlOiAgMDIvMjQvMj AyNTwvdGQ+JEZkQAZ4rGvbAOB n tDHkLBatOt4pcHnpbVlpKP5dM BDewnuxGZUshP5nPNPezHNorB wkVM2nPUOvzsmwd031NtTzCRU 0 MBUivZVbQ0TeeW4xIvArYRAqU NCqO8SrvCBxNTkmK314VYvrCf T7AFJwzxMyC1OlOCVluSzmSjY 0 d8R1Bx2Ew6RttejjJ0CioWFxQ xMrZreuCYk6K8IkZuhooYF+PC 49XSWsMN60PRh9QUD1yIgdYRc i NOWfN2MtuG8yIjTlOBZgTTMvT yc+PHRhYmxlIHdpZHRoPScxMD XmVyGfxAtnLZ8mMy7bHKNzPDC v eMaxgORjHfKib5miXSHcNUpqT D4mhBdtX4QqpLU4JOIit6x5Oj 77Q56uG0NpfJR+QPAsoGZ4pKA 0 rK8lMdSkSpR6BHweA976VmCau XQvJhofr3nmd5jifZq8TuL8JB BonlEsbOvsKQF0t6CoJn06T30 s IHdpZHRoPSIxNSUiIHZhbGlnb y1gjZ3gRx1+FABbvLF0pTL4qM 9fKdZtCwR0XZuuC875KcQowJH v Yrdmz8ike9ayoWz3QmQrMUVll tEsdYtoTUJ4e3LoZb66S7LenP rxt3HmSiy2lu81eKQym4Q9nCJ 9 Q8CqSNPpfmocvIChyCmkIM5qE DBmnwzhWIEndV2oBQYcX7q3Pk LcSjR2JTbzK8GbbwV1BKUmeYP g ZYIkqYHVtV2jomrgs2hfhccpY uGvDVLiDMl8YBr7UOHieAllSa GzSQX1XfE4GTM1zZQvcX9ipOp n pcttbN7dDuf+EIE4tOYxtMPPF A8eTxlotKD+IFHqAOJ9pOhkUP zlVBKloX7iALTiN3g1LuMiCyR 1 XQthP2ZdkpW7IOFfdSYxVMNjw DQTiL2ffsdjg9xnojjtQoZcVE TkHIg0GZw7TDImrWgmZuMiVSJ 0 YpD0SKF3rSPnwZ8loRhurmouw G9wOyc+CuzbsIffIZT2ZTt6D2 XyJqq3VUQqsSkjAS0ofYIbMKp u Fi5oqNbebUwyBD7bMWOhzkbrq 943LhLls4nuTJUhfRZrNTrtGP T2J88oq4N7CCUdGEMaNVM8uYU 4 yN7ycLtmvqhubXNyeAlubqPqi ZbuCCtpYXlzG458HDRrtSyvTs XvWAj7R0OoXgn6FGHvrSclCE3 n bLJhZXrjXt6amHcmiZejES5dR YCruhvbs021FzFvs1ozBVHqhN YpZOmmEIH9O77jn1E5WPLrICV w QRL6eFM7pF7hhHhhepejbKKts XwvbnZkiZroXHpqYYnvO498PR PffNueOjMxvDn8J7YrPju7YFJ z lKkcAZ5fmMBkEDyjOt4ryWewr PnlKU2kJASwqijik985RiEif0 ehODHdpCJvZZazHAZ8K11lt8E 6 ZDLvULChJJG7kVM3cT3lcBlmq jogbGVmdDsgdmVydGljYWwtYW byE347SCQbhOxnGwSreDfckfW g YYofRFo4W6IkNkwojMW+PC90Y PEvWX08oJYgvMCuo5oupCd6Qf AwOABqRHM0oYseIBkqx3WkMWI t I03ydEFyt7W2HRHcgNrxeSLeK pUxaKZ1iB2hCRxbcjpnk6saeb ddFjvhz1vlij62wK54M67rFIa p TZBmANKtGBChTEAcgSzghp8sv G9wIi8+VTHopEG7vQD4eF2fBB ZgGjH7AHhoT420NoVktIZnCnc j m4gmy8hurEe0QvQ8ZCTxhcUjc MnxIGL6n4WpIk17C08rUUjiYK DdMXLvLJSkZFZrvDjrcc6okO8 w Ii8+UFIrwNL8lFP3rS5bLnLzY oH2YTifS816AzBdxBNkYchuQ0 2jZ8RwuKV+TVMtKng1WGQloZi s TC3buQEsXAzqUy2vKOH3ErGtY iTwLNztR7DaCWAomkkygsnbeH L2CMTbYUYlhF97Fq5ezQmtGPA w vGWCwX7fegvnn3zyvmmjXaGuI FCjJDe6OHq1CPXkoEovAbUuSA N5BwQ2IYN9bYXxkB0ytAymirk g hR3lV4KwAIFywjgpMa73sQ2tR wFcIrO6CGfiMot+RklTSCwgSk FNRVMgVzwvdGQ+AUXiIBZ0dSm l KRxtOAHytA2hWXKzR2i6NaXbE dT5NWfiB7DiXVLdbnbsLj72hL 0lQzJoGrR0KGaaW4ZxmkF1IDP w cGHkVRwfGOR0Q56yu6L1FRKsK RWwXTM6zQS1mO7xsHmzjbcdtA CyuPaomeIvvKraUWelBSsjY46 6 BXJgoFwyAlUhLrU4TxO0OzO2G 4XdQdo7ZZMqgAmiZA2ouNYxLH jsOl0gcXgflZhaPY6qJNPliug w KOBvwE1iGEWeeAMajHrrQF6gF HMhliymo625XqQtMLE0WYGjeT ZgT4BadS6bPxYnIOXaAHDrE2V l mZByABawA096SWeiXqP9UZMwl qLmA9JcGWImvXfxXaR2v6T3Xq 44OCBZZWFyczwvdGQ+PHRkIHN 0 mJriBSfcLJBbhH9zXPBeA6i3K aNwVeQ2KJddX7PdVKNxbvmnXm 82bG0fJkPuQcQ3ZNatA8UgfbU 6 JFTauAJzXIixKAP4B13vp7G3J JJxPYUbIZF4rYT5tA8flWryka ogbGVmdDsgdmVydGljYWwtYWx p O321IGVnsFruIh6ESNB3V9LsW io5YUGolUnrIN0kbQVlZYvjEs 1fkUjenVhzOZ1kWLXlrpjvPGN k sK9zLSCjqCKqkRlhJJ4bTZCyc eanc344KjWgANO9SGMvpQWfO6 YroH7pHeKnKVDrMCLiG5CfuWM t MDyjE339EHooFxK7GFZozqCiJ 6MjAREzgXmfYcZ0k9G9Hs4TLB wvdGQ+JJ52al82R2PgQomnKls 0 THXfFRO7yJL4gL8qWZUbVMiwk 8W6sRM3I3FzhhOnon2ba9lzSB NgFHetS51oiWRln9R0TXCfwYL 5 CRCdcLdhAlFjfD42Dpf+PGNvb Lsxq0KbNtmjf3ktz5qldKp9Ro WoSUWhwtKgqUxcMKV5l6AyFh0 8 A92cBOgjRKFjUEEnDVRtLURlw Zricl6pcZ1iIf0+YWAzjMM4zC P0xH3zNwCjDhD8HTyxX200RmK v kZYhHftwm4xed9tfsRy3IjWwU YQvzwYuwLazZWY7g8AgRd14Y1 FfvBzwd7DlQni9vv09gLUff1X 5 rIB2G4JxNADpciujtDKuzFfjR O5hQHPcjnqxLMWolD5pAVDgP3 l7AaQjPvA4WUziR0PmqkL7CMD v cYOxVHYyfAMPyT1monjnl4bjn llwYeNfBIJnSZe2KOz5VVFawH oeYmQvTDQ3QoY9PID5wREfuZ9 h qRxfdanigG7wNwb+TFe8f8iya IBfXO9ieHN3RD03TM38lKVcp7 V5dDJ9A5MbGLPoghsjmhnalWU 6 FFEdQWIccJ19Tc0rtRcaMz4aA HInHZW1RUAfuRAgY1KsfL5yBr FnRIGyGHPaP8EzeLJaCLopT74 6 FVeiEgG6FZGtcfXnX9PeGDVan LcnNfB8p5I7Ic5DUF60YD69MP 96kOLxq7B1sYU3T2CvYZKgjzh t nadluPC2TLNtSWKmjP15Kh0ow BdcFn5dAJTtKWQ9XYHotCBaV2 UwtS5mBrWxWPFkZXZdD4DnjVH t ULecP167ZRepOtU4ILIiysHoC 2PmZBAtbLqvHkH8p7A6Gn1DKm 64LY39HX10xUDuq0J4aQP0C3P h FGWhpmoagocyiZK5RDOsRXYmb L43Kj6cjTykFs9tDOZbMRR8JD YxbKDjJ4YtoJ0dNpYxHLCiGED w L4SafEZeOIerD515RCpaQlU3M WBibfKbW5TkVLYvmDcrCxG9g7 K7Bu2EYDpjbjd6T5WgIoxzjRN + IA63CLTgFP81jMDhvUUjq0wwj Pm7RxPpBNEbXCP1uEzkFIncd3 EmUYZwO27seJQav4X0UFRoeMm h cHN (more content not included)... Normal [facility] Urine Cyt [facility] ([facility])on 08-08-2024 [facility] Method of Extraction Voided Normal [facility] Comment on above: Performed By: #### 1 [id number] #### [facility] [address] [place] [address] [facility] Number of Jars 1 Invalid Interpretation Code [facility] Comment on above: Performed By: #### 1 [id number] #### [facility] [address] [place] [address] [facility] Specimen Urine Normal [facility] Comment on above: Performed By: #### 1 [id number] #### [facility] [address] [place] [address] [facility] Type of Service Technical Only Normal [facility] Comment on above: Performed By: #### 1 [id number] #### [facility] [address] [place] [address] XR ABDOMEN 1Von 08-04-2024 [place] [address] XRay Report Signed Patient: FANI CHUA MR#: [id number] : 1935 Acct:[id number] Age/Sex: 89 / M ADM Date: 08/03/24 Loc: [facility] Attending Dr: Julio C Ramirez M.D. Ordering Physician: Julio C Ramirez M.D. Date of Service: 08/03/24 Procedure(s): XR abdomen 1V Accession Number(s): [id number] cc: Julio C Ramirez M.D.; MARAÍ [place] [address] Patient Name: FAIN CHUA MRN: [facility]:[id number] date: 1935 Sex: M Assigned Patient Location: [facility] Current Patient Location: Accession/Order Number: [id number] Exam Date: 08/04/2024 10:46 Report Date: 08/04/2024 [...] Ramirez Jr., D.O.08/04/2024 10:47 AM Dictation Location: [place] [address] Electronically authenticated by: [id number] Y Date: 08/04/2024 10:47 Dictated By: Henry Ramirez M.D. Signed By: 08/04/24 1238 DD/ 1047 TD/TT: Barrel Finisher: Tom Grossmanogselena jackson MD - 08/04/2024 [place] [address] XRay Report Signed Patient: FANI CHUA MR#: [id number] : 1935 Acct:[id number] Age/Sex: 89 / M ADM Date: 08/03/24 Loc: RAD Attending Dr: Julio C Ramirez M.D. Ordering Physician: Julio C Ramirez M.D. Date of Service: 08/03/24 Procedure(s): XR abdomen 1V Accession Number(s): [id number] cc: Julio C Ramirez M.D.; MARÍA [facility] [id number] Patient Name: FANI CHUA MRN: [id number] date: 1935 Sex: M Assigned Patient Location: [facility] Current Patient Location: Accession/Order Number: [id number] Exam Date: 08/04/2024 10:46 Report Date: 08/04/2024 [...] CALCULUS. Impression dictated by: Henry Ramirez Jr., D.ORachel08/04/2024 10:47 AM Dictation Location: [place] [address] Electronically authenticated by: [id number] Y Date: 08/04/2024 10:47 Dictated By: Henry Ramirez M.D. Signed By: 08/04/24 1238 DD/ 1047 TD/TT: Barrel Finisher: [facility] Radiology Study observation (narrative) [facility] XR ABDOMEN 1VOrdered By: Reji iologist Radiology on 08-04-2024 [facility] Work Phone: Coding Summaryon 07-22-2024 Coding Summary HTMLBase 64 TiozlaafXBf8bPp+PGhlYWQ+P S9TXHEtF06rhYAfaO9kW3FLWG lOSywgQVBQTElOSyIgbmFtZT1 kaXNjZXJu IC8+HZ1fRCVwVfqzeRQgh5Y7z TP6S06rpq1bYMwwiJA4OMHdHg Ipfkqlp6pqvFf5MBdgQibvQkX t JQVooF17XLS3kP66Wc14vNKtv UKep5qpqFi3KdVwRQFgMGC7hG unBOwqu9KeJQJiX34oyHXjt9A 6 LTCuqVfgkSWiCnNhmRG8tR1gQ Jxauuehc2cobkcqJbu9uc19sD Adz0T0tOI6I0WhztX4AOGifWG g NxsphFRMlO5gdzljo8qcsiwdX xMfSVHmAKv5ILs9JGShbWwdDz IxUW21RIG7WHWsveOaJ4NfPOA s aDopSbV5c6V5Zi2UE2IJBibfD 1VNTUFSWTwvdGQ+XM96lk48K7 QpBdgnFqq3KVYiDVK9gMA2zR5 n FENzXFkci3T2qNG9U6FbsqRpk h8fe0nbQALwPAqtK82vxVXac6 R6AOBrbRZ2PTWguZsrSqDexV0 3 Oyc+YPPttXwiw0NtPwkdk6rbi 4hfvEw2SskbCCJikiNwlWmiCG M1y5DsUd6kAPPwcII0gHM0iC6 i BeSnVdE2WLuqL946FyIabRWuJ mtfE29sQ1CdvNF+GNIoDup6VQ QjyQufAT7nY5FhTUAjeqqmsTO m tBkeBK9hWEKuagunIFLksU2jG LFhM8z1IhHpWaU2YPptG5PyYD CnjykuKt68oA0kMzYvTmH9RXz u H2WhcnS2JMLalDScLBxyRQO7Y 10ng3K4GHOhSXCmOEE9mYO1mY 1hbGlnbjogbGVmdDsgdmVydGl j LSmpIYtrB696WQRhjJvhYnGqM GluZyBEYXRlOiAgMDIvMDcvMj AyNTwvdGQ+EBDjNWP2mBafWBG n dNTbBQqoQr0xyHhcoNqwYW5aK RNeqyyjVWFynQ7mMABjiTJxaK bsTJ5qNNZqupumd511MqArMMS 0 YRXayQFbD1BbjO0uAkLvUZTsP QOjT1FweXKcPZnrY569ZQkeLm W2PGFthoQuM5LzVWPjyRnzXrR 0 b1R7Aa7Lc2FrywfmY4QnwBBwP oNiMthwPGs9U1QuRbolyYT+PC 53LKJsKO08UGc0BAI6iEkaKXk i FDUtC1BhoZ9wGdApXUZtPHQtE yc+PHRhYmxlIHdpZHRoPScxMD VoLwIsuIqmVV4vHt5iHDQeKZU v cMdyvYXcNmBkz1afXSGdIWhhH C6rzFrdU9GpoQW6COEet6s6Ii 24G24sL4GmoYJ+RQYqtHO5uSU 0 aI2cIvCeBoQ5ABtiT135SzWgz QYgPjafe6ixj5sshXd1RnF8FE PvqrXtcZpyQHE0l9MqDf62Y04 s IHdpZHRoPSIxNSUiIHZhbGlnb x1jsN4iDs9+YTHzyWL2yUK4iO 3eSnMlQuP2UZwpQ917ImOunXE v Mzupc4frq0rmaWn3KpXkCGVlg kYtuEunHAB6k4ZpQd42W2VkeB zup4NdQrp1hx26gLFfo5T1nVX 9 E5LmVAIywdbqoKRinCieXW5uV VDtawfzSFLuuR4qHVGmW2c0Mc LdYfH4KMntU0QgrfF7BNKltKB g JKDuaHBLuU6lyqtva0pmqdgyQ kJiEIQzZGm3CKr5XIXdqDjjVv EjWOY2FtR6AHT9nFLtbS2xxHj n duxlfW9cMmh+NIH7sHSyzIXOK B0aYmeftZS+HHJhRIM8eVojRG ugAVMdgY1sRBYtR8f2PwUqDxV 1 MIsxV8RlyoJ1VFLtpXWeUTJpv DWEhK7laequz3ynjalgPoKlGH QaTBw2LBf2OKPzsEzlWwOoZJQ 0 KlM9SVB3vKZuxP1rsRbzjwpda G9wOyc+PxhmwJzqOLL7KCm5X2 KoLah3LGKbkKuyIV7vqADtSVr u Ks4wwYeqiCvyCM2aKVOfocher 076IjDod6ndXQUehWBnBElbJD B6I70if4Q0PFTcMDCfORH9mEH 4 lX9zzAkmedxqbXKarKfmdxOof HawYRpsSDikL349AWNfeIycMe NsGMt4S6DzXsm6WVRrqCtgWF8 n eYJgZRnnIl5vfLxjyAjmOH3nI WSvmvlzm056EbYkm6knDGNusT WnPEktJQU2C84cc2R5TXCcMQF w RMX1qHF8xA6goWnvjgmxxTBpe MpyolNruNxpGAvnVWysT649IO KcnFcxQpFagRf3V7QvWan3NMS z pIiaJT7vgZSkMHhyGu7wuXipj WixPM3tGBNlwnuof707LhDvq6 ggJIGfnGCaZHfsDYQ1P58jy4V 6 OXPiUFOaNKY7gCI4xX6jdZnjr jogbGVmdDsgdmVydGljYWwtYW dfF856QPCytQwzNfYfqMnvxfE g WQumEJa8Z8KcMfyqfRB+PC90Y STlJZ53wJJdeQFew2fxbDe8Ck ExTGDoWVE6rHttIWxse3FjMON t K98iqVKkx1I5XMWwfGighYGaM dNchWN8nJ9aLBqsskvdr4aidf skNjdmf0alix47pL95K64eHFg p ORNmJNRvGPHsKMXywEvelo1nm G9wIi8+HKWtdRH6bWK5hE9kFN IcOyN4ZHiyT398ApMcoBDxQvx j o4zmn1kzaMi8EdM1UYRuvbXet RyoKYQ2p2DbEu72Q01tNJvhBS GzYBNtXERrERLpkSdoxd1dlY0 w Ii8+QCCyxBC1jLH7uJ5aMaNyX wB9QFwjA554GhRmrTPwOzitC9 6oK3UvzRE+VYWqZwc6CFUdnXt s PD0vqJHlROhaAi6xLID3XfIkR jMxBWtpD2BoCEOitngsdprwaG W9HYZxSLInoT83Ol6qvWxlHZL w eBGIwJ6yqwgbl6playxrKkRlM UXxXCl0ECc6HHHteKiyNfRcVU E6KhE4ZAC7yZItoZ3evWipmia g wF2yG7DtBSMsqmzvQd95dI9tE dOpGyC4WVaiWkk+RklTSCwgSk FNRVMgVzwvdGQ+NAGuXQI4vCz l URzfKRFotE5iEUKhV2t6SaZpP hZ9ELinX6EdTFDycvmcWt65nV 1eKpJvUmW2UAshK4CxjyO9TPH w xRMvORleTOB1P84js6H6OLNiA BBcCZD6lHB8sG2gdAgkwjctdC RoxKtwscQplWkpONytBHhxL63 6 YYUydNpcDdGpEcZ9CsC5AiS7L 4SqWma8GOBfiFxnFH7byGDvYF rkVp0wxFykqJknKS5xSVYuyhh w BFRtgA7mHRUkdHZfnYoqUW2pR QKtdxbit485JhQkJHB1TIZpoR LeU2PccS9wSrFsWSZiCKUlP1N l uPHvRRejR065SDisNfV2LDEsr lLmM2DfYFTbaJzxYlU3d9I2Bf 44OCBZZWFyczwvdGQ+PHRkIHN 0 wItjHVrgGCVeeI2rIDByY3t3P jJtDvD0SQruE2YcWQVshnjcOy 51qK8eYqGnHyP1QQfqV1WxdjD 6 GLDpdFLdBZptDUB8Z88ei4H3I CVyYDYqNOW9fHI9sB8rqMlsup ogbGVmdDsgdmVydGljYWwtYWx p G665EHWnwCpwTg7IBKN3C8XyV bi0WZCwdGkeCA8qeUGfOZbwYg 6cdJclmFinLR6uCVXstjufIUL k dW8uZHHkoTYtqXlzDN2lPXHvn mjwp079YxNnICS3DSYkyKAhX9 BkdZ5rSqLcSAFiZJMkH1QmeQR t JWulM838GOetJvO5CZZqmxSxH 0OuXLQgkCxfBeV3e5J1Ad8KGI wvdGQ+HP45gm82O4ZzZqbdMuz 0 HMAlFBT7fWF8kR3nQNPaIMlpd 2I8uWU8R6MfmoNrtk0ei7egMB UjAVanF65kpKGxy0S7UUInjTD 5 BHKvwErjHhDheC72Jth+PGNvb Xjlx5RvHsgnt2ehf7qijKj4Jr QpOHLhcdLlsBuhXAF8u4JnTj9 8 G46kNLblTOKoTOBoGZKaFGKqe Bhupi2nqS5aIs1+LMQdrAC8xT Y3wD2cEbDnLeI7OBxxF952OoO v eTJkAeviz0zez8akrTu5FoGiK UOhxcVhqXoqLBF2k6LaPm73I7 ZjbWqvi3HjLkn3lt77uSTyv8C 5 mXC9L6HfGICmtwwxlCHjlUmrG F6eVOTlpcwmZNIqlQ1tDBNnM2 r5ZeTxPaE1KLokL5QzcoB5LNK v iILjHFDfnKLJsF9utmrae5pwb hdwQsTrEAKdEPc0FIu9TCPsrI fyYdFbFXD5TeH0TMP6hIYknV8 h qEfimiokjN9gItu+APu9h0jqp MZdXB0cnKN7UW68FF96nWGdw9 T1fVL9J3LyWMDdlrolzmoidZB 6 ORNgDJSzbZ89Ip0nfHmyHp8zI GEwLQP3RUNzmZQhC0OjkE6oDj FsNYQuZJMcQ6FyeFZzUIkkJ73 6 CThoJeL8EXExajXnJ7NbTDDrw SxnIuJ3z3S9Pm8QLO71FA73RP 16tSVqp8C4cML4W7FfGDLcwjl t kbxwbRG3XYQlQCEovX87Gq6bt GliIz1oXEPjQYT7GOGpiMOtS9 CpeU1qZvPaRAXxJYGoY2EleNU t EBuzS660SAouHiS8RJBuvvMmT 2MgTNZwhTdbXqD7g6S2Ob3NOk 37WD35EP87ySOzs0A6eJQ3W9G h GNFrfhhuguzuhPZ4SVGiWBZjz P90An5upRmcQb8yUISeQHF8IN PkzUVhF9NisV5qQkAyWJFlZDX w Y0ZsyETvZGegJ515UBcfLfR2I SAprnCzD1VnBWDnuNctFdQ2q1 L9Hy7CQObkvwq4J3ZhDywklFF + TY25GYBsFT88hNAemFJxb8uif Tw5ChZzSHMuXUH2ePadXXegk2 IzECFaK60oyRMwq5Z3TJVefUz h cHN (more content not included)... [facility] Coding Summaryon 07-15-2024 Coding Summary HTMLBase 64 LwxicbtiNJf9iCj+PGhlYWQ+P S9IABHfJ59alUJtfJ5rB1DZLF lOSywgQVBQTElOSyIgbmFtZT1 kaXNjZXJu IC8+UL4mXRVxSwrhzSXij4W2b RV3X13das9cAGepoAJ0QUUmAi Fqbklyr3sirEb1KQznYyrwRtN t QULfjR87NOW0xA33Iq64kCZel MYyf9yqrFr0PkVkLSLtNYC8tR gbMByud6FiRDRuW23vtCDtu0H 6 ZLWahIwzkIIvWdVkfGQ5zW8gG Gjuyrhhd4onobbnEsb7bv79iZ Dzj9I9nES5U3WzhdJ3CLWezUD g VwfyvPZToA1burmnj2pgcfwiP xYbFWMpGJt0KNu5XFIvyGciOt MpFU66XIT4VQDgqmKbO5ScBJD s fSmwDdC9x8B0Jq0QP6EEShfiO 1VNTUFSWTwvdGQ+VP00fo46O8 RoNyaaPpc8MSCfSPF6sJM9zJ9 n XNKfGOlsi0F8mNB3Y8HkqgVin w3xr7ceTNZdEIctE85dvYCcz5 P3GQInmQO3QOCugOkwRsMoaE7 3 Oyc+FBRzuFkbq0SwExaru7pxk 0myzSu6IazvTVZqvvZnlFsnCR F5h7SiDf2cNJJrySU8rGO8vM6 i JxJbMtA5CDlxW216PjKxkLFhN bakF95oB2NhxWP+ODIjCet9UE WyzJhdWJ2tN0WjBGGaivscwAE m gKglEO2nOSIakdqqFHNckV5wD DNzY7o6SwJoKcG9HGdbW7MoUU FztbizCv65tI2bQxJwNaQ5FCt u O6EyxkK0MGUhrVXdUChmKVE0D 52fp7B6BHLbRYCpCNY7kNS6zZ 1hbGlnbjogbGVmdDsgdmVydGl j RLmnBTfiX920TGDkaYwcPgDhW GluZyBEYXRlOiAgMDEvMzEvMj AyNTwvdGQ+NXDcFCW4zAgqXIM n cHKmWCebWr4sjSkltNgpET0oY XMkldcjLIGfmO4pOQJijCSxnE nsLC7zJBLsacrnq066MyEpBFQ 0 LIIcjBLuH6UnbN8pWmEvXNRnI QZkE2XkoREkZOdwF086OPpyKr A0JKXekoHjR8GbBEOymDltHdL 0 u4Z3Ab6Dq4PhvikdL8JsqRTjE fMpVnzxKPs7P9WoIwxgnLM+PC 92UOXgWG41CCn5YCV8lVebPCy i PXPzS8SynE9aPcBsCTJdXDPcP yc+PHRhYmxlIHdpZHRoPScxMD LxAzLgeBjzAS3tSo1hMODuAUC v aUmgjHXuGwWaw7wmGHYoFWawB A2udCeiP4SjdWQ9HXZsh8y9At 63V68fV3JhzKS+MCWawXW7xPG 0 hI4dWtRlTdM7QJazC612YlDxq PKuEljih1ijx0rivAd6AzT9FA FqksDdmSnpFGU8f1WrIc27X80 s IHdpZHRoPSIxNSUiIHZhbGlnb b9tvZ1pAr1+MCFjyTX5dIH7pT 9nDeXtIzM9XSjqL861WgKfoAE v Junmy8fqs5jwrSy3ZqPmXRUjo iGuvKjdYMB7x5RdDk33Q7BcxH ccc9QoVof2qi08fZZjd2W7xXF 9 E2GpPJSvawphzVKdaCkyOQ8eL GSbxzpaGJZclL4vYQSpD8q3Dz QeQiL9EGitY5SdnrE2FUHguTX g VDWtnIRKzD6zjpboj1qpvsbxO fJsNNSgWHn3UQb2UCEmvEcgYk XiYKW4ZoR1SVM9gOJhzL6lgGq n hcvrsL9xYdb+YQM2qHQbzZTGV Y1qWitigNT+KFLzZOX7yKpoPS vlRAKrvD4kPHFtQ3o2ArWyPkA 1 RLmiT6AdsjH7GMKpjPZjKODjq NZHvJ7wgscon5jtsfjdFjXaWK DwYDu1MDm7FBWbbKziBaXtEZD 0 FmM8MNI5fLXgtT9sfMsiybnkd G9wOyc+AqdckScaLFK6LKq7X2 ZaYyc9GVHddNfnUH4srQAzZIr u Rr7umHamjDlmKH8tERTaxndyn 708WoVwr8ioQCBhgVLlZNzbED Y2E72ax0U3DKKcWRDsXUE0rMS 4 rN1gsKlfqidudLNaaJktpbHda RllOEvyJQwzQ549GLYwvEbfEm TrEXa5J0MwNtd3GXZtwGqsIS6 n yJRmHPqrHx8ypIqspAiqDM5nP LMxgbkti115LaSqt0uqZZXxjJ NaWRdvTAD9Q51ny8H2IJMkJXT w HVF5mUK3pX1qkKtyuhermHSmw HtmjbGdfYuvXPfyYAzeV861EB JztRpaOaSruMg2Z4QqQyt9SNG z sZcaEG8xxVMqKDzfTi7qkYmzg AhdXB3wECSkkyknk536PxFwq4 bjTHBkpELvWNquPFE3K31nz1Y 6 LDWqJCDsVGJ9lWL3gC6flNfel jogbGVmdDsgdmVydGljYWwtYW nhZ651MUTohZpaBiUpyQohgoV g FMgpKIk9P6FoXaufgDV+PC90Y APrIE31fTXejWXtj6sbyGd2Ej EpXXSkFZD8dVprMYoyk2BhPRU t E36xiAIaz9K3JODafNjkzFKxZ fDdtCA1jA0oYVwvsxqqa7gccz dlYpwfq1hsha84gP47T03kJId p TASzNVDbSZNhQAIsoFeujc3ud G9wIi8+KNHanWZ5mUZ8lJ8qQO BkEpK3RVazI068DhSipPSkZov j m0iim7ajjJi6CvI4LICrenLck ZszCHB5g4YsMc23L57yDKzyWE RwJFNeGTVbUWKjoOcmej4bgE6 w Ii8+SIHfiIH1wGX6oQ5nJySiN bY3EIdtS690WkMcpNLaFuknX6 2jT6JokMA+THEeAfs3AUWejTk s QP6lzPCuAUhkGt3fXNX9UsAzN fXyYBkiD3CrFOCdlryuzemowI I7SUFnZICquT56Zp1mzKesNGY w uHTIfL2ghzaom5laqogqJbUeT TJdFEn0MAe6JGPttMeeHtHbEB Y2LzF1WBG8cCXaaJ5yqCwzwsq g oB1oP0TwWYFqewoxUx54cX1hB vZiExC0PAxrNux+RklTSCwgSk FNRVMgVzwvdGQ+FFBhHBE9aAt l LFozDONxbJ0eMHFeD1c9TbRpH zK0YHqmZ2GkAZGkbgmuZf37sZ 5sFyGlEaI7XCsvW6PpihG0IRN w rPQyNUngQDV7M09df2P0FSIcR GOdZDA1aJJ0rR7amSrhflzmnC DtlLetjiOlrCcsQNruNOrfR48 6 HJNxrEcbInNqTzW0BmY8NtP6Z 3QhXcw0NMVneWisWR7lfGDzTF crIf7uwFxlcRjnSK6oGGHjroi w SOHbuW2tHCDhpKXqfDuoVF7sC IJxqqbnc993BwEtELG2ZJTefB XrQ4HwqD9xVcZwIIBwQVNpD8M l aYEpNJvhA925VRisCpD5MSRhc dZaA7YpRPAycOtdWkK9s8R0Te 44OCBZZWFyczwvdGQ+PHRkIHN 0 dBnnDOtxWHTfmZ3qHFKbC3y3A fNqIxQ4YBzhD4UxTNJhcwyrLy 67cW7rEwPkZwF0ABvgW6CzwfH 6 TMDtvETyFRdaOAA2F45go4P9U ZChTVZlKJO3dDY8aR9kgVxsdt ogbGVmdDsgdmVydGljYWwtYWx p N665JBJjmQkiCb9YIAQ7D9VyN hs5RIBjmYegND1ztEFpLKhtQd 4tsWjltScbDC1oIDHdrzaoMCF k kW8bJELhmBRfzGckOW9uVAJzn dczu906MqKqYJL7PJZwbNUoV3 PwxV1qJcBmLFPsVIFmY4KzpEO t FNdfZ752UShuFpZ5FWUlkgNvF 4OwBZMylJvyDuE4q9A2Ou5NML wvdGQ+XS68vn24E3XwAmcxYnv 0 EJIkPZD5rCU6kU6bWSPoDJkdd 6J5sTK4L4SaqrHsgs0tb4cuZL UbHSjoC20xxCVga9A1XGOhaSV 5 FJRinXtgYtGfsI05Zvz+PGNvb Qeng1PbTudsh7ljf9rmeUh2Et NmJBCrvaKbwQczNBW4m9JtPk4 8 T46oVSzyZNQmWGImVKJwEHUqz Hmcls3twR3dZy0+VHKeuLA4mD E1eG5fFjGwAvD0SEenX522HhL v kMDhWswes7wkd1awyBl6WgBrD PUpuxPdgSrhAUT6b0ZoIk03O9 OglSjdg4ZdGay4ht55tDZsw3Z 5 aVQ7D2SeJEUmobmpkINgyGgsL C5mELSvdtqwHINbsU7dMPNuT0 r9JlZuYtH9THkfX3NkbfU8YFQ v aGUeFWUzyTNRnG8cenlmj2twe xkkBxCrXDAhLJd9CHl5CKHtjO xfAvCcUEP9UfN9SII3pQVfyZ7 h qYmifhtslN7wVif+BDc4k8bdp ZNyXD5eeHF9TN88YH48bNQcl0 P5wWT7O8CuQFPgyziscvbrwSB 6 GHDuSUBpiQ93Na8vbJavXc1kQ QPeSAJ5FYGjtYZyV0WiiV5rDx NrGVQgLJInB8TkgJRwZPmrA93 6 XQcrXlI2HCFwmuOzF2EjWGBaa VicMqL5z8U1Wc1ZKB62RC75VA 75wUWjd8Y2oOH3J4DjDJJmprt t anxznTV3TDHmZOSyhL63Ro8dk MqeBk9oKPGbUVK9EIPeyAGiG6 ZwyA8hJnBxNEFuHAYqC9NtuEP t EBzbB131ARfjStW9AUWisbIoA 4QdJEUfkWzqMbU2t5B1Lt1IGu 58RY27AW10pODbj8T1zNQ0P4D h CPSpvcafaaflfZR8SZHeFUNrq K61Nj1ndJioHo5fFEOuOJE3YY XldVZlJ5BfpK4zPePeGBEmEGB w B8QneQJeVOtvF803EHkfPdM3E TFgipMjR0CsGQIweWnoRgK6f7 R2Hn0AQKkfosu8B8KtShwesOE + PH31IXAeOK90yBVwcBNyu0xms Kq9OnBuTJBjVAH6sWcpDRztr6 WoVXLlO84vhZKae9I5WVWwhMz h cHN (more content not included)... [facility] Coding Summaryon 07-08-2024 Coding Summary HTMLBase 64 GdtmlwwoKWd3bXd+PGhlYWQ+P U8HWNWtP31seCCidF1eL5TIMO lOSywgQVBQTElOSyIgbmFtZT1 kaXNjZXJu IC8+SZ6yDFVqXhjizNTfd1V2a QU2H92qpz0bSUbuvXP5CCMbAy Cumiohx7khpRx8GTgvGhwvVcN t NLDioE42EIT8mT73To81bIFxo VTgz5ytlZf8TxMgMBFgYVU3lO gwLTexc9CtDYOsZ96seFCmt1K 6 KGMbbIjdoRWqQvTedXO3pG6jD Niapyoqp0xzajukTui6dr02jS Qhk0S4qGA8O9QvleT3FQTfaAB g NgvhsSCGuV2pntxmw0jugzynA gUyMYAoKIt3HKw3OTValIsfXo ZdUT63SOH5TDVshrCyV3BgWYD s xVaoPxI1g8S7Vi6LS3EQHxaaQ 1VNTUFSWTwvdGQ+EC82lx73T9 GdAntbZsu0PAHjAWL5mLG3iM7 n SXTgCCzcp5Z7qNH8D5VkcdOjh c1yo0msGALhPKdyW26zlVBdp1 O9ZWVkzWQ6INNekEmdDpGngD2 3 Oyc+QQHfvCiia8FqBbyrq5gtg 5lxiPo6WdzwPKKeynYsvCpnPG P2s1GhBg1jGRFcoDR4yIX8oY1 i TmYdCeN8NSedN072NpKwaGEoZ oszR00tO3MrvFC+BPTzViw6NK CbrFguRS5lW8OoLYQtyfquaLK m yJunUV7gXCMrgmgwWWGxfB0iG YHwN5o7KkQaWaE2JLjsF6IjXX ShoxjoPx48pR5uWjPgDuI8HHl u L7FwzrF5VLSxaHRgYXduUWG2U 76sj0H2EXXcQZYtMVM9cRP1wZ 1hbGlnbjogbGVmdDsgdmVydGl j MVrtPXkmU595PQIdzBfhPzQgD GluZyBEYXRlOiAgMDEvMjQvMj AyNTwvdGQ+JSVdIEI7oBlqAEZ n hXXpLLngRm8yxJaguVfgTE6pR ZObodldAXNztW1qOSOdbXLaoF wxFC3hVYCrcefom051XgAyETC 0 UHBdkASsR4UbjH6kLtOsNKPpP IWxQ2NnsTGeCEauQ405XNpaMk S1NMUdubUwC8BqYFHeuAgmZtQ 0 j3M4Pa4Oo7NxojqaU8FhzFFhE nUjPswmBRo9V3HvQticsMH+PC 96VWPzYI30QKj3TEU1tIpdXSx i LMZcV8GuaY4iHwMmFMEbEUMqG yc+PHRhYmxlIHdpZHRoPScxMD CdCzMacGxfPR1wEa6mONXlFCT v pRjxfVEvVeBpg7fcMKCwCGfmM Q9wjPleG0HwvLF2EBPxh9e1Ob 55N00eM5MebUL+ACTojRM0yZK 0 uK0oKvEdByN6RAqbW335ZpWgp ESlCgmch8tao0chgZy1UlA5DY TkmqOfoSbpQOO5v6ZaVf06J30 s IHdpZHRoPSIxNSUiIHZhbGlnb d7tyC7fMi4+OYYymGF1rXQ6yO 2gVfBkUyA9LWjmI037AiYmwLK v Wroiu6bfb6tevWd5ZlUaBJOme xUioQifUSX0w7OiIf82S9FkpP qnq6VqQsy8lp25uETju0K7hXG 9 F6RwGEEjqroykAWsaTvnOE5lK KEjtrdnOAAkpH2eWJLrR0w5Dm PbMnJ6BDkrK7WksyJ3LEHmbQU g TDMuuLGXiX7hxsmgf0gjbciyT dIcXJKvYIv0LZi1YKTuuLluVw UdTJP4GfN6LXT2zJWlnD3vmPm n qougpV8cZvk+VMG6lPZrxVKHI G9zOhqynRP+OHZnFGS5dVzhPP hwJPFxaB6mZWJmE4y9GqLhDsS 1 XTgkC0XfuzD8ZHOuaRBrMSQyo YNIlB1wmlndj7vlfqdcKcCeCU QjLGl1LTb5XDHzdAhcDaYlNXC 0 RhT7PRG8hMImpP1qyIzvncfmz G9wOyc+HzcglMdnQIZ7HIk6N0 AkYlp6QMDcuWycIJ3orEGkIYm u Bm0ciMneaUduXO2oATBppocfg 148IdYdq1qsIBXnhTShFTmcQX U9I55nz1G8LDYfIWGkNRY4oPX 4 aP7nhLnpeewohQFgqRrlawLdu ZilOCmiWXjjU788FBCjnJxmYe GuZBa5A1AgPiu3CRGlwPgcOP8 n dEFbJNgeRz0wnPbnyHecBT0jZ ZBtdrfzt051EpZzj8gdZBDdoG ZlQXkkYYF6R75zi4Z7DMKwDZQ w DBP8tOF5gS3whEtlyhhtkVEvy XciplCooGwoIKzcRMijO922XE AseMfqYpJhqKx7N4WcMhn0SRF z kGkyXE8pbGOnCGmrKr2mjUjwg WktQI5cDFMjmwfjc694VoHrx2 xdKXKtfCYsXDfuXZW7T55ue3C 6 NRAkZQBeQFV6cOY6kI9uyMyok jogbGVmdDsgdmVydGljYWwtYW ppN256GJYlqZkwUzCdcMpqsrC g DCwxDCh2G7NvMhicnZI+PC90Y KDgIO81oWCyqBBct6fmyIg7Az HpIDDbKLE0aBdmVUtgj7FtXJF t H77rlKNls5Q4KHPfyUxnoGZxJ hMjsDD2nH8dTIzfjvjai1tged wlIgknt0maih52uJ39C42wEFu p GVEoGFYdAIGjQEBeqQinaw2nl G9wIi8+LHUmwNW4tEX7yT0rLD OaNtQ4VIneA095NhBkqEHeQbb j t4kwf7jdbNb6YnZ2ZOLlkrAzz YgjMIM7l2RxZd07F53aUGjsEE WkRIOgLJIyPOPzxWbbkk7dnE6 w Ii8+BKAuiTY3bET9hT2xQvYeC dM6WTmaD987QjVbpFIvIsszB5 7tV1BrrMO+PQMmQnd8XLPdaRt s QH0lqTDoKLjiPv6jYVL4IwCtK bFqRLhaF0GkDABtbvgjlftfxW M9JVUyFONiuJ97Wb6thJfgZHY w zZZXqL4mvtelf3iztpbpOeGmA TKlJEq8LRz0RALsqDugKnZkNZ B0EvQ2ICO2mBPyiZ5zfCudnih g zT8pS7IpBSQmzxvjUg31fD8jQ rQzVoU8IOacVru+RklTSCwgSk FNRVMgVzwvdGQ+XLBgCKN4rYe l TZtkXDAbsY3vDTLdA3x5TnGsI dJ5HJhsB9IxUGDvcnceZa78lV 2fCjGpXaE3GSvsE1RtopR1VHQ w iARjUFysIMK3R34ww7R5EHXpH IPtIDZ6zBW0nF3lrWwfvvhyyH TklZrhdcWtcNivCPcjHXebD64 6 VKFehGeaUbRkUkO9FoJ1LnS1C 9XmQpx9CCIcrOsyGB5zpJZbUN kvLp4oiOjwqKzjZW2dWSZmlog w KEUvjS4hPTPobGQbpExuTC2tC MXnbgler179CqDeNUF9PQKuoM VmO4OgaW4rGrWlIASlPYXeZ5T l zBGyMZlcS018GYixWuC5KPHrj cLfZ2UyESUytKhkKcG9n9N9Rl 44OCBZZWFyczwvdGQ+PHRkIHN 0 dYxbACwwBSVjfW8yTVOiU0g0O yVzIaY7MRhkN9GlKCAnfvnrSv 10yP4rUcWdFfA6XIzeO3GqviZ 6 GFQkkLPgCUqrRYW8Z70wi1R3Z IClANCkSMP4bDV2pK5jqGmcyp ogbGVmdDsgdmVydGljYWwtYWx p Z990IINdhOwnRx8WADK6J0GvE oe3QIMngKzsDM3fxTYlCYbgPi 8xpBdgqCnjBP6vPWRaukjxXCT k lA7aRMAmfBYckIrqAP0tTIKpz dmce497KmZqOAX6PWFtrJDmW3 QtjY5wNnFdYUAzEPMtR9WmnBO t JRftP108DHktWdC1CEHbgoDrG 1WbUOKzgUomNfT6e8D5Sm5GMN wvdGQ+KD88fw17N1LvTvvsDno 0 ASFwBIB5vZK3jE9cMRRuZKmrf 5O6tGW6D5LjceKzgl9sq5apSH WoNTfeW27nrRNka9Z4ERHyeQN 5 YDBmnOgqVqTnhK86Pcb+PGNvb Gfkr8UiVcuek1qfr4klbZy2Fi ShQWZggaZrlDneKKC2f3RyBo4 8 B07aMTdqPCMzSWAaNMPuBUTtb Tyshx1fkI7sDa8+CRLqqQE8cM Z4bT2hPlHfIaX7OHkoS856HjB v lBKePfvje5hia2actGn0FyJqQ KCtiiGuyCzvVYW5f1GdZo83N0 DdoJvru6MeVji4ob25yKGup0G 5 yVF2S9KoHMUezsmosKYrqEvdY O1uQFBnnclwBMDodZ1pSFNrX2 t2HvMjJvU2ALwtR6JdyhT7BNJ v fVQaJBCocZSKyX6mtcqyk5fet zjtYjEoEZRyCLc2BAw6OQOqlG gaIbOiXCJ5QeF1DOK4rLTrgP8 h pBqvwvqymQ3qQsl+YZa8u1uaq AIhVO2jzBY4EK38LZ47qQPgs4 V2rMB8X8EgONJeotwwflrgcXK 6 DGEdJQUjrL80Qb0edNsyTl2rX XKrXLP5HGYyfDIyY2BktE2uVf WuHFZlRBKeH7VroSJtCEzhH60 6 MEwsTwV1HDTlucPpM6ZhWTTyt VebIuE0j5F6Ot8EKA32OJ39VW 72cDMyq8S8iKG1L5QfPDCnnbx t tgvisRJ7KDKkFFLluP78Ym2st JalZt2tOGPwQQE3VIMlcMUpI7 MyhL3oIsCnAFEkSLOwP5HmuIC t YTsfP170FVxlRzX3NCEraaVeQ 5GzGNEftAujCzE9h2C8Ai6KZn 11NI82BR65rIHke2Q0yZD4T1O h QCNiltiufavsqBL7NVEnOMWgw E88Mu4zzWflHe4wXFDzELU4VX QbpHSoQ1IchK1dFaMvNSEfLBO w E9HslNNoFSpyJ983ZVkzTfG7S ZOfxfBrV1GvABVutNwoLyX0s9 Z4Ym2MVAqnlzv9N3ErEvqbnRW + HI38BSItEU00cDPfbGZwg0wxf Ts0SlDoZPWhXDV5oDbvVJwbg4 JiTGUyT41mmWDtw3P3XMGjxBe h cHN (more content not included)... [facility] Alanine aminotransferase [En zymatic activity/volume] in Serum or PlasmaOrdered By: Gely Lin on 06-15-2024 ALT [Catalytic activity/Vol] Alanine aminotransferase [Enzymatic activity/volume] in Serum or Plasma 7-52 [facility] Albumin [Mass/volume] in Ser um or Plasma by Bromocresol green (BCG) dye binding methoOrdered By: Gely Lin on 06-15-2024 Albumin BCG dye [Mass/Vol] Albumin [Mass/volume] in Serum or Plasma by Bromocresol green (BCG) dye binding metho 3.5-5.7 [facility] Alkaline phosphatase [Enzyma tic activity/volume] in Serum or PlasmaOrdered By: Gely Lin on 06-15-2024 ALP [Catalytic activity/Vol] Alkaline phosphatase [Enzymatic activity/volume] in Serum or Plasma 34-104 [facility] Anisocytosis LM Ql (Bld)Orde red By: Gely Lin on 06-15-2024 Anisocytosis Ql (Bld) Anisocytosis [Pres ence] in Blood by Light microscopy [facility] Appearance of UrineOrdered B y: Gely Lin on 06-15-2024 Appearance (U) Urine appearance Abnormal Clear [facility] Aspartate aminotransferase [ Enzymatic activity/volume] in Serum or PlasmaOrdered By: Gely Lin on 06-15-2024 AST [Catalytic activity/Vol] Aspartate aminotransferase [Enzymatic activity/volume] in Serum or Plasma 13-39 [facility] Bacteria [Presence] in Urine by AutomatedOrdered By: Gely Lin on 06-15-2024 Bacteria Auto Ql (U) Bacteria [Presence] in Urine by Automated High None Seen [facility] Basophils Auto (Bld) [#/Vol] Ordered By: Gely Vasquezvaevelina on 06-15-2024 Basophils (Bld) [#/Vol] Automated basophil count 0.0-0.2 [facility] Basophils/100 WBC Auto (Bld) Ordered By: Gely [facility] on 06-15-2024 Basophils/100 WBC (Bld) Automated basophil % . [facility] Bilirubin Test strip Ql (U)O rdered By: Gely Lin on 06-15-2024 Bilirubin Ql (U) Bilirubin.total [Presence] in Urine by Test strip Negative [facility] Bilirubin.total [Mass/volume ] in Serum or PlasmaOrdered By: Gely Lin on 06-15-2024 Bilirubin [Mass/Vol] Bilirubin.total [Mass/volume] in Serum or Plasma High 0.3-1.0 [facility] Comment on above: Samples from patient s who have taken Naproxen have shown spurious elevation in Total Bilirubin levels. A metabolite of Naproxen, O-desmethylnaproxen, has been shown to interfere with the Jendrassik-Grof method for measuring Total Bilirubin. Blood Cultureon 06-15-2024 Bacteria identified Cx Nom (Bld) NO GROWTH 5 DAYS PERFORMED BY: [place] [address] PATHOLOGIST [employer]LET [employer] POSITIONER SHIVAM CORREA M.D. Normal [facility] Comment on above: Performed By: #### P T #### [address] COVID Cepheid NegativeOrdere d By: Gely Lin on 06-15-2024 SARS-CoV-2 (COVID-19) Ab IA Ql COVID Cepheid Negative [facility] Comment on above: This is a duplicate [...] or Cepheid Disclaimer revoked sooner. PERFORMED BY: [place] [address] PATHOLOGIST PALLET [employer]ONE POSITIONER SHIVAM CORREA M.D. Normal [facility] Comment on above: Performed By: #### C EPHEID NEG, COVID19 FLU RSV ####[facility] [address] [place] [id number] [facility] CT abdomen pelvis wo conon 0 06-15-2024 CT abdomen pelvis wo con [facility] Main [place] [address] [place] [address] CT Scan Report Signed Patient: Fani Chua MR#: [id number] : 1935 Acct:[id number] Age/Sex: 89 / M ADM Date: 06/15/24 Loc: ER Room: Type: [facility] ER Attending Dr: Copies to: Gely Lin [...] Trey Murray M.D.06/15/2024 2:39 PM Dictation Location: [place] [address] Transcribed By: [facility] 06/15/24 1439 Dictated By: Trey Murray DO 06/15/24 1433 Signed By: 06/15/24 1439 Normal [facility] Calcium [Mass/volume] in Ser um or PlasmaOrdered By: Gely Lin on 06-15-2024 Calcium [Mass/Vol] Calcium [Mass/volume ] in Serum or Plasma 8.6-10.3 [facility] Carbon dioxide, total [Moles /volume] in Serum or PlasmaOrdered By: Gely Lin on 06-15-2024 CO2 [Moles/Vol] Carbon dioxide, tota l [Moles/volume] in Serum or Plasma 21.0-31.0 [facility] Cepheid COVID PCR Negativeon 06-15-2024 SARS-CoV-2 (COVID-19) RNA SHARRI+probe Ql (Unsp spec) Negative Normal Negative [facility] Comment on above: Result Comment: This is a duplicate Cepheid Xpert Xpress CoV-2/Flu/RSV Plus RNA by RT-PCR result to be used for statistical tracking purpose only. PERFORMED BY: [facility] [address] [place] [address] PATHOLOGIST [employer] POSITIONER SHIVAM CORREA M.D. Performed By: #### C EPHEID NEG, COVID19 FLU RSV ####[facility] [place] [address] [facility] Chloride [Moles/volume] in S aime or PlasmaOrdered By: Gely Lin on 06-15-2024 Chloride [Moles/Vol] Chloride [Moles/vol ume] in Serum or Plasma 98-107 [facility] Color Auto (U)Ordered By: Hai Lin on 06-15-2024 Color (U) Color of Urine by Auto Yellow [facility] Comprehensive Metabolic Pane rui 06-15-2024 Albumin [Mass/Vol] 3.8 g/dL Normal 3.5-5.7 [facility] Comment on above: Performed By: #### [place] [address] [facility] #### [address] Albumin/Globulin [Mass ratio] 1.2 {ratio} Normal [facility] Comment on above: Performed By: #### [address] [place] [address] [facility] #### [address] ALP [Catalytic activity/Vol] 81 U/L Normal 34-104 [facility] Comment on above: Performed By: #### [address] [place] [address] [facility] #### [address] ALT [Catalytic activity/Vol] 23 U/L Normal 7-52 [facility] Comment on above: Performed By: #### [address] [place] [address] [facility] #### [address] Anion gap [Moles/Vol] 12.6 mmol/L Normal 6.0-15.0 [facility] Comment on above: Performed By: #### [address] [place] [address] [facility] #### [address] AST [Catalytic activity/Vol] 29 U/L Normal 13-39 [facility] Comment on above: Performed By: #### [address] [place] [address] [facility] #### [address] Bilirubin [Mass/Vol] 1.6 mg/dL High 0.3-1.0 [facility] Comment on above: Result Comment: Samp les from patients who have taken Naproxen have shown spurious elevation in Total Bilirubin levels. A metabolite of Naproxen, O-desmethylnaproxen, has been shown to interfere with the Jeniam-Grof method for measuring Total Bilirubin. Performed By: #### C [address] #### [facility] [address] [place] [id number] [place] Calcium [Mass/Vol] 9.1 mg/dL Normal 8.6-10.3 [facility] Comment on above: Performed By: #### C [address] #### [facility] [address] [place] [id number] [place] Chloride [Moles/Vol] 98 mmol/L Normal 98-107 [facility] Comment on above: Performed By: #### [address] #### [facility] [address] [place] [address] [place] CO2 [Moles/Vol] 27.2 mmol/L Normal 21.0-31.0 [facility] Comment on above: Performed By: #### C [address] #### [facility] [address] [place] [address] [place] Creatinine [Mass/Vol] 1.02 mg/dL Normal 0.70-1.30 [facility] Comment on above: Performed By: #### C [address] #### [facility] [address] [place] [address] [place] Creatinine Clr Calc Pharmacy 50.06 Normal [facility] Comment on above: Performed By: #### C [address] #### [facility] [address] [place] [id number] [place] GFR/1.73 sq M.predicted MDRD (S/P/Bld) [Vol rate/Area] mL/min/{1.73_m2} Normal [facility] Comment on above: Performed By: #### C [address] #### [facility] [address] [place] [address] [place] Globulin (S) [Mass/Vol] 3.3 g/dL Normal [facility] Comment on above: Performed By: #### C [address] #### [facility] [address] [place] [id number] [place] Glucose [Mass/Vol] 98 mg/dL Normal 70-100 [facility] Comment on above: Result Comment: [place] Glucose Reference Range is dependent on time and content of last meal. Glucose of more than 200 mg/dL in a nonstressed, ambulatory subject supports the diagnosis of Diabetes Mellitus. ADA recommended reference range Performed By: #### [address] [place] [address] [facility] #### [facility] [address] Potassium [Moles/Vol] 3.8 mmol/L Normal 3.5-5.1 [facility] Comment on above: Performed By: #### [address] [place] [address] [facility] #### [address] Protein [Mass/Vol] 7.1 g/dL Normal 6.4-8.9 [facility] Comment on above: Performed By: #### [address] #### [address] Sodium [Moles/Vol] 134 mmol/L Low 136-145 [facility] Comment on above: Performed By: #### C [address] #### [place] [address] [place] Urea nitrogen [Mass/Vol] 18 mg/dL Normal 7-25 [facility] Comment on above: Performed By: #### C [address] #### [place] [address] [place] Creatinine [Mass/volume] in Serum or PlasmaOrdered By: Gely Lin on 06-15-2024 Creatinine [Mass/Vol] Creatinine [Mass/v olume] in Serum or Plasma 0.70-1.30 [facility] Dipstick and Microscopicon 0 06-15-2024 Appearance (U) Cloudy Critically abnormal Clear [facility] Comment on above: Order Comment: Healt hcare Worker?: N Performed By: #### [facility] [place] [address] [facility] #### [address] Bacteria,Urine 3+ High None Seen [facility] Comment on above: Order Comment: Healt hcare Worker?: N Performed By: #### [address] [place] [address] [facility] #### [address] Bilirubin,Urine Negative Normal Negative [facility] Comment on above: Order Comment: Healt hcare Worker?: N Performed By: #### [address] [place] [address] [facility] #### [place] [address] [place] Color (U) Yellow Normal Yellow [facility] Comment on above: Order Comment: Healt hcare Worker?: N Performed By: #### [address] [place] [address] [facility] #### [address] Glucose Ql (U) Normal Normal Normal [facility] Comment on above: Order Comment: Healt hcare Worker?: N Performed By: #### [address] [place] [address] [facility] #### [address] Hyaline Casts,Urine 0 [LPF] Normal 0-8 [facility] Comment on above: Order Comment: Healt hcare Worker?: N Performed By: #### C [address] #### [address] Ketones Ql (U) Negative Normal Negative [facility] Comment on above: Order Comment: Healt hcare Worker?: N Performed By: #### [address] [place] [address] [facility] #### [address] Leukocyte esterase Test strip Ql (U) 4+ High Negative [facility] Comment on above: Order Comment: Healt hcare Worker?: N Performed By: #### [address] [place] [address] [facility] #### [place] [address] [place] Mucus,Urine 1+ Critically abnormal [facility] Comment on above: Order Comment: Healt hcare Worker?: N Result Comment: PERF ORMED BY: [place] [address] PATHOLOGIST [employer]LET [employer] POSITIONER SHIVAM CORREA M.D. Performed By: #### [address] [place] [address] [facility] #### [place] [address] [place] Nitrite,Urine Negative Normal Negative [facility] Comment on above: Order Comment: Healt hcare Worker?: N Performed By: #### C [address] #### [address] Occult Blood,Urine 3+ High Negative [facility] Comment on above: Order Comment: Healt hcare Worker?: N Result Comment: PERF ORMED BY: [place] [address] PATHOLOGIST PALLET ST[employer] POSITIONER SHIVAM CORREA M.D. Performed By: #### C [address] #### [address] pH (U) 5.5 [pH] Normal 5.0-9.0 [facility] Comment on above: Order Comment: Healt hcare Worker?: N Performed By: #### C [address] #### [address] Protein (U) [Mass/Vol] 70 mg/dL High Negative [facility] Comment on above: Order Comment: Healt hcare Worker?: N Performed By: #### C [address] #### [address] RBC,Urine 50 [HPF] High 0-4 [facility] Comment on above: Order Comment: Healt hcare Worker?: N Performed By: #### C [address] #### [address] Specificy [place],Urine 1.017 Normal 1.001-1.03 0 [facility] Comment on above: Order Comment: Healt hcare Worker?: N Performed By: #### C [address] #### [address] Urobilinogen,Urine Normal Normal Normal [facility] Comment on above: Order Comment: Healt hcare Worker?: N Performed By: #### C [address] #### [address] [place] [address] [place] WBC CLUMP, Urine Many High None Seen [facility] Comment on above: Order Comment: Healt hcare Worker?: N Performed By: #### C [place] [address] [facility] #### [facility] [address] [place] [id number] [facility] WBC,Urine Innumerable High 0-4 [facility] Comment on above: Order Comment: Healt hcare Worker?: N Performed By: #### [address] [place] [address] [facility] #### [facility] [address] ECG 12 lead ECGon 06-15-2024 ECG 12 lead ECG [facility] [place] [address] [place] [address] Electrocardiograph Report Signed Patient: Fani Chua MR#: [id number] : 1935 Acct:[id number] Age/Sex: 89 / M ADM Date: 06/15/24 Loc: ER Room: Type: [facility] ER Attending Dr: Ordering Provider: Gely Lin [...] intraventricular block Confirmed by Bipin Ortiz DO ([id number]) on 06/15/2024 3:57:48 PM Referred By: Electronically Signed By: Bipin Ortiz DO Transcribed By: MUS Signed By Bipin Ortiz DO 1557 Normal [facility] Eosinophils Auto (Bld) [#/Vo l]Ordered By: Gely Lin on 06-15-2024 Eosinophils (Bld) [#/Vol] Automated eosinophil count 0.0-0.45 [facility] Eosinophils/100 WBC Auto (Bl d)Ordered By: Gely Lin on 06-15-2024 Eosinophils/100 WBC (Bld) Automated eosinophil % . [facility] Epithelial cells.squamous [# /area] in Urine sediment by Automated countOrdered By: Gely Lin on 06-15-2024 Epithelial cells.squamous Auto (Urine sed) [#/Area] Epithelial cells.squamous [#/area] in Urine sediment by Automated count [facility] Erythrocyte distribution wid th Auto (RBC) [Ratio]Ordered By: Gely Lin on 06-15-2024 Erythrocyte distribution width (RBC) [Ratio] Erythrocyte distribution width [Ratio] by Automated count High 12.0-14.8 [facility] Erythrocyte morphology findi ng [Identifier] in BloodOrdered By: Gely Lin on 06-15-2024 RBC morphology finding Nom (Bld) RBC morphology [facility] Erythrocytes [#/area] in Uri ne sediment by Automated countOrdered By: Gely Lin on 06-15-2024 RBC Auto (Urine sed) [#/Area] Erythrocytes [#/area] in Urine sediment by Automated count High 0-4 [facility] Globulin Calc (S) [Mass/Vol] Ordered By: Gely Lin on 06-15-2024 Globulin (S) [Mass/Vol] Serum globulin measurement by calculation (mass/volume) [facility] Glucose [Mass/volume] in Ser um or PlasmaOrdered By: Gely Lin on 06-15-2024 Glucose [Mass/Vol] Glucose [Mass/volume ] in Serum or Plasma 70-100 [facility] Comment on above: ADA recommended refe rence rangeRandom Glucose Reference Range is dependent on time and content of last meal. Glucose of more than 200 mg/dL in a nonstressed, ambulatory subject supports the diagnosis of Diabetes Mellitus. Glucose [Mass/volume] in Uri ne by Test stripOrdered By: Gely Lin on 06-15-2024 Glucose Test strip (U) [Mass/Vol] Glucose [Mass/volume] in Urine by Test strip Normal [facility] Hematocrit Auto (Bld) [Volum e fraction]Ordered By: Gely Lin on 06-15-2024 Hematocrit (Bld) [Volume fraction] Hematocrit [Volume Fraction] of Blood by Automated count Low 38.8-50.0 [facility] Hemoglobin Test strip Ql (U) Ordered By: Gely Lin on 06-15-2024 Hemoglobin Ql (U) Hemoglobin [Presence ] in Urine by Test strip High Negative [facility] Hemoglobin [Mass/volume] in BloodOrdered By: Gely Lin on 06-15-2024 Hemoglobin (Bld) [Mass/Vol] Hemoglobin [Mass/volume] in Blood Low 13.0-17.0 [facility] Hyaline casts [#/area] in Ur ine sediment by Automated countOrdered By: Gely Lin on 06-15-2024 Hyaline casts Auto (Urine sed) [#/Area] Hyaline casts [#/area] in Urine sediment by Automated count 0-8 [facility] Hypochromia LM Ql (Bld)Order ed By: Gely Lin on 06-15-2024 Hypochromia Ql (Bld) Hypochromia [Presen ce] in Blood by Light microscopy [facility] Ketones Test strip Ql (U)Ord ered By: Gely Lin on 06-15-2024 Ketones Ql (U) Ketones [Presence] i n Urine by Test strip Negative [facility] Lactate [Moles/volume] in Se rum or PlasmaOrdered By: Gely Lin on 06-15-2024 Lactate [Moles/Vol] Lactate [Moles/volum e] in Serum or Plasma 0.5-2.2 [facility] Lactic Acidon 06-15-2024 Lactate [Moles/Vol] 1.6 mmol/L Normal 0.5-2.2 [facility] Comment on above: Result Comment: PERF ORMED BY: [place] [address] PATHOLOGIST PALLET [employer] POSITIONER SHIVAM CORREA M.D. Performed By: #### P T #### [address] Leukocyte clumps [Presence] in Urine by AutomatedOrdered By: Gely Lin on 06-15-2024 Leukocyte clumps Auto Ql (U) Leukocyte clumps [Presence] in Urine by Automated High None Seen [facility] Leukocyte esterase [Presence ] in Urine by Test stripOrdered By: Gely Lin on 06-15-2024 Leukocyte esterase Test strip Ql (U) Leukocyte esterase [Presence] in Urine by Test strip High Negative [facility] Leukocytes [#/area] in Urine sediment by Automated countOrdered By: Gely Lin on 06-15-2024 WBC Auto (Urine sed) [#/Area] Leukocytes [#/area] in Urine sediment by Automated count High 0-4 [facility] Leukocytes [#/volume] correc amparo for nucleated erythrocytes in Blood by Automated counOrdered By: Gely Lin on 06-15-2024 WBC corrected for nucl RBC Auto (Bld) [#/Vol] Leukocytes [#/volume] corrected for nucleated erythrocytes in Blood by Automated coun 4.1-10.5 [facility] Lipaseon 06-15-2024 Lipase [Catalytic activity/Vol] 16.0 U/L Normal 11.0-82.0 [facility] Comment on above: Result Comment: PERF ORMED BY: [place] [address] PATHOLOGIST PALLET [employer] POSITIONER SHIVAM CORREA M.D. Performed By: #### C [address] [address] [facility] #### [address] Lipase [Enzymatic activity/v olume] in Serum or PlasmaOrdered By: Gely Lin on 06-15-2024 Lipase [Catalytic activity/Vol] Lipase [Enzymatic activity/volume] in Serum or Plasma 11.0-82.0 [facility] Lymphocytes Auto (Bld) [#/Vo l]Ordered By: Gely Lin on 06-15-2024 Lymphocytes (Bld) [#/Vol] Lymphocytes [#/volume] in Blood by Automated count 1.00-4.8 [facility] Lymphocytes/100 WBC Auto (Bl d)Ordered By: Gely Lni on 06-15-2024 Lymphocytes/100 WBC (Bld) Lymphocytes/100 leukocytes in Blood by Automated count . [facility] MCH Auto (RBC) [Entitic mass ]Ordered By: Gely Lin on 06-15-2024 MCH (RBC) [Entitic mass] MCH [Entitic mass] by Automated count 27.5-35.2 [facility] MCHC Auto (RBC) [Mass/Vol]Or dered By: Gely Lin on 06-15-2024 MCHC (RBC) [Mass/Vol] MCHC [Mass/volume] by Automated count 32.5-35.6 [facility] MCV Auto (RBC) [Entitic vol] Ordered By: Gely Lin on 06-15-2024 MCV (RBC) [Entitic vol] MCV [Entitic volume] by Automated count 83.5-101 [facility] Monocyte distribution width [Entitic volume] in Blood by AutomatedOrdered By: Gely Lin on 06-15-2024 Monocyte distribution width Auto (Bld) [Entitic vol] Monocyte distribution width [Entitic volume] in Blood by Automated High 0.00-20.00 [facility] Comment on above: The predictive value of MDW for identifying sepsis in patients with hematological abnormalities has not been established Monocytes Auto (Bld) [#/Vol] Ordered By: Gely Lin on 06-15-2024 Monocytes (Bld) [#/Vol] Automated blood monocyte count High 0.0-0.8 [facility] Monocytes/100 WBC Auto (Bld) Ordered By: Gely Lin on 06-15-2024 Monocytes/100 WBC (Bld) Automated monocyte % . [facility] Mucus [Presence] in Urine by AutomatedOrdered By: Gely Lin on 06-15-2024 Mucus Auto Ql (U) Mucus [Presence] in Urine by Automated Abnormal [facility] Neutrophils Auto (Bld) [#/Vo l]Ordered By: Gely Lin on 06-15-2024 Neutrophils (Bld) [#/Vol] Neutrophils [#/volume] in Blood by Automated count 1.8-7.7 [facility] Neutrophils/100 WBC Auto (Bl d)Ordered By: Gely Lin on 06-15-2024 Neutrophils/100 WBC (Bld) Automated neutrophil % . [facility] Nitrite Test strip Ql (U)Ord ered By: Gely Lin on 06-15-2024 Nitrite Ql (U) Nitrite [Presence] i n Urine by Test strip Negative [facility] No Panel InformationOrdered By: Gely Lin on 06-15-2024 Estimated GFR (CKD-EPI) > 60.0 mL/Min [facility] Creatinine Clearance (Chem 50.06 [facility] Nucleated erythrocytes [Pres ence] in Blood by Automated countOrdered By: Gely Lin on 06-15-2024 Nucleated RBC Auto Ql (Bld) Nucleated erythrocytes [Presence] in Blood by Automated count 0-0.5 [facility] Platelet adequacy [Presence] in Blood by Light microscopyOrdered By: Gely Lin on 06-15-2024 Platelets LM Ql (Bld) Platelet adequacy [Presence] in Blood by Light microscopy Normal [facility] Platelet mean volume Auto (B ld) [Entitic vol]Ordered By: Gely Lin on 06-15-2024 Platelet mean volume (Bld) [Entitic vol] Platelet mean volume [Entitic volume] in Blood by Automated count 6.6-10.1 [facility] Platelet morphology finding [Identifier] in BloodOrdered By: Gely Lin on 06-15-2024 Platelet morphology finding Nom (Bld) Platelet morphology finding [Identifier] in Blood Normal [facility] Platelets Auto (Bld) [#/Vol] Ordered By: Gely Lin on 06-15-2024 Platelets (Bld) [#/Vol] Platelets [#/volume] in Blood by Automated count Low 150-450 [facility] Polychromasia [Presence] in Blood by Light microscopyOrdered By: Gely Lin on 06-15-2024 Polychromasia LM Ql (Bld) Polychromasia [Presence] in Blood by Light microscopy [facility] Potassium [Moles/volume] in Serum or PlasmaOrdered By: Gely Lin on 06-15-2024 Potassium [Moles/Vol] Potassium [Moles/v olume] in Serum or Plasma 3.5-5.1 [facility] Protein Test strip (U) [Mass /Vol]Ordered By: Gely Lin on 06-15-2024 Protein (U) [Mass/Vol] Protein [Mass/vol ume] in Urine by Test strip High Negative [facility] Protein [Mass/volume] in Ser um or PlasmaOrdered By: Gely Lin on 06-15-2024 Protein [Mass/Vol] Protein [Mass/volume ] in Serum or Plasma 6.4-8.9 [facility] RBC Auto (Bld) [#/Vol]Ordere d By: Gely Lin on 06-15-2024 RBC (Bld) [#/Vol] Erythrocytes [#/volu me] in Blood by Automated count 3.90-5.60 [facility] Respiratory specimen influen za A virus, influenza B virus, respiratory syncytical virOrdered By: Gely Lin on 06-15-2024 SARS-CoV-2 (COVID-19) RNA SHARRI+probe Ql (Unsp spec) Respiratory specimen influenza A virus, influenza B virus, respiratory syncytical vir [facility] Scan and CBCon 06-15-2024 Anisocytosis Ql (Bld) Moderate Normal [facility] Comment on above: Performed By: #### C [address] #### [address] Basophils (Bld) [#/Vol] 0.0 10*3/uL Normal 0.0-0.2 [facility] Comment on above: Performed By: #### C [address] #### [address] Basophils/100 WBC (Bld) 0.4 % Normal . [facility] Comment on above: Performed By: #### C [address] #### [address] Eosinophils (Bld) [#/Vol] 0.0 10*3/uL Normal 0.0-0.45 [facility] Comment on above: Performed By: #### C [address] #### [address] Eosinophils/100 WBC (Bld) 0.1 % Normal . [facility] Comment on above: Performed By: #### [address] #### [address] Erythrocyte distribution width (RBC) [Ratio] 17.6 % High 12.0-14.8 [facility] Comment on above: Performed By: #### C [address] #### [address] Hematocrit (Bld) [Volume fraction] 36.9 % Low 38.8-50.0 [facility] Comment on above: Performed By: #### C [address] #### [address] Hemoglobin (Bld) [Mass/Vol] 12.3 g/dL Low 13.0-17.0 [facility] Comment on above: Performed By: #### C [address] #### [address] Hypochromasia Slight Normal [facility] Comment on above: Performed By: #### C [address] #### [address] Lymphocytes (Bld) [#/Vol] 1.1 10*3/uL Normal 1.00-4.8 [facility] Comment on above: Performed By: #### C [address] #### [address] Lymphocytes/100 WBC (Bld) 15.5 % Normal . [facility] Comment on above: Performed By: #### C [address] #### [address] MCH (RBC) [Entitic mass] 29.3 pg Normal 27.5-35.2 [facility] Comment on above: Performed By: #### C [address] #### [address] MCV (RBC) [Entitic vol] 87.9 fL Normal 83.5-101 [facility] Comment on above: Performed By: #### C [address] #### [address] Mean Corpuscular HGB Conc 33.3 g/dL Normal 32.5-35.6 [facility] Comment on above: Performed By: #### [address] #### [place] [address] [place] Monocytes (Bld) [#/Vol] 1.2 10*3/uL High 0.0-0.8 [facility] Comment on above: Performed By: #### C [address] #### [place] [address] [place] Monocytes/100 WBC (Bld) 27.32 % High 0.00-20.00 [facility] Comment on above: Result Comment: The predictive value of MDW for identifying sepsis in patients with hematological abnormalities has not been established Performed By: #### C [address] #### [address] Monocytes/100 WBC (Bld) 17.4 % Normal . [facility] Comment on above: Performed By: #### [address] #### [address] Neutrophils (Bld) [#/Vol] 4.6 10*3/uL Normal 1.8-7.7 [facility] Comment on above: Performed By: #### [address] #### [address] Neutrophils/100 WBC (Bld) 66.6 % Normal . [facility] Comment on above: Performed By: #### [address] #### [address] NRBC% 0.1 /100{WBC} Normal 0-0.5 [facility] Comment on above: Performed By: #### [place] [facility] [place] #### [address] Platelet Estimate Decreased Normal Normal [facility] Comment on above: Performed By: #### [facility] [place] [address] [facility] [place] #### [address] Platelet mean volume (Bld) [Entitic vol] 8.0 fL Normal 6.6-10.1 [facility] Comment on above: Performed By: #### [address] #### [address] Platelet Morphology Normal Normal Normal [facility] Comment on above: Result Comment: PERF ORMED BY: [place] [address] PATHOLOGIST [employer]ITIONER SHIVAM CORREA M.D. Performed By: #### [address] #### [address] Platelets (Bld) [#/Vol] 134 10*3/uL Low 150-450 [facility] Comment on above: Performed By: #### [address] #### [address] Polychromasia Slight Normal [facility] Comment on above: Performed By: #### [address] #### [address] RBC (Bld) [#/Vol] 4.20 10*6/uL Normal 3.90-5.60 [facility] Comment on above: Performed By: #### [address] #### [address] WBC (Bld) [#/Vol] 6.9 10*3/uL Normal 4.1-10.5 [facility] Comment on above: Performed By: #### [address] #### [address] Serum or plasma albumin/glob ulin mass ratioOrdered By: Gely Lin on 06-15-2024 Albumin/Globulin [Mass ratio] Serum or plasma albumin/globulin mass ratio [facility] Serum or plasma anion gap de terminationOrdered By: Gely Lin on 06-15-2024 Anion gap [Moles/Vol] Serum or plasma an ion gap determination 6.0-15.0 [facility] Sodium [Moles/volume] in Ser um or PlasmaOrdered By: Gely Lin on 06-15-2024 Sodium [Moles/Vol] Sodium [Moles/volume ] in Serum or Plasma Low 136-145 [facility] Specific gravity Test strip (U) [Rel density]Ordered By: Gely Lin on 06-15-2024 Specific gravity (U) [Rel density] Specific gravity of Urine by Test strip 1.001-1.03 0 [facility] Urea nitrogen [Mass/volume] in Serum or PlasmaOrdered By: Gely Lin on 06-15-2024 Urea nitrogen [Mass/Vol] Urea nitrogen [Mass/volume] in Serum or Plasma 7-25 [facility] Urine Cultureon 06-15-2024 Bacteria identified Cx Nom (U) ORGANISM: Enterobacter cloacae complex (O:ENTCLOCPLX) [place] Count >100,000 Aerobic [place] Charge (NMIC56) SUSCEPTIBILITY [...] RESISTANT TO ALL B-LACTAM DRUGS. PERFORMED BY: [place] [address] [place] [address] PATHOLOGIST PALLET [employer] POSITIONER SHIVAM CORREA M.D. Normal [facility] Comment on above: Performed By: #### C [place] [facility] #### [place] [id number] [place] Urobilinogen Test strip (U) [Mass/Vol]Ordered By: Gely Lin on 06-15-2024 Urobilinogen (U) [Mass/Vol] Urobilinogen [Mass/volume] in Urine by Test strip Normal [facility] WBC Auto (Bld) [#/Vol]Ordere d By: Gely Lin on 06-15-2024 WBC (Bld) [#/Vol] Leukocytes [#/volume ] in Blood by Automated count 4.1-10.5 [facility] X-ray reportOrdered By: Abrahan Murray on 06-15-2024 Study report [facility] [place] [address] [place] [address] XRay Report Signed Patient: Fani Chua MR#: [id number] : 1935 Acct:[id number] Age/Sex: 89 / M ADM Date: 5 Loc: ER Room: Type: [facility] ER Attending Dr: Copies to: eGly Lin APRN~ Ordering Provider: Gely Lin APRN [...] Murray M.D.06/15/2024 2:41 PM Dictation Location: [facility] Transcribed By: [facility] 06/15/24 1441 Dictated By: Trey Murray DO 06/15/24 1440 Signed By: 06/15/24 1441 [facility] XR chest 2V*on 06-15-2024 XR chest 2V* [facility] [place] [address] [place] [address] XRay Report Signed Patient: Fani hCua MR#: [id number] : 1935 Acct:[id number] Age/Sex: 89 / M ADM Date: 06/15/24 Loc: ER Room: Type: [facility] ER Attending Dr: Copies to: Gely Lin [...] Trey Murray M.D.06/15/2024 2:41 PM Dictation Location: [place] [address] Transcribed By: [facility] 06/15/24 144 Dictated By: Trey Murray DO 06/15/24 1440 Signed By: 06/15/24 1441 Normal [facility] pH Test strip (U)Ordered By: Gely Lin on 06-15-2024 pH (U) pH of Urine by Test strip 5.0-9.0 [facility] Coding Summaryon 05-19-2024 Coding Summary HTMLBase 64 YgronoluAXe3fQm+PGhlYWQ+P L3IWNYoB68rnRIyyS0sJ0JALV lOSywgQVBQTElOSyIgbmFtZT1 kaXNjZXJu IC8+HM0rMLMvNkhlzEKwd1G1b NS5I28czq3pJFkodWL5XEMqRc Vcteqhq2eckSy5UJutKbbyOiE t QPEefL44OEG3kA30Rf46bLBbn UCan1ofiAm7AdVeNAEnCWU8wJ rgCHwjj2ZmWPHoF63iiONxh6E 6 KRCmuHfalRXnTmSwtEW9dK8zX Bliodupn2sapepkUmz9ca44gA Eli4N7rRN6U4YdwzB1HIRtqZP g CziezHJWkH4zbqwgk2vzluzcQ kIbBKIrXNt7OUw7GVLkzDwvWu NyLN38YOT5ALQuzjFgR6MeTNJ s aGbiYzJ1b3L8Vm7JB1SHPpraH 1VNTUFSWTwvdGQ+NF79kf95N7 GkCumjByb7OWFuSZL8tOL7cU8 n VGFfINigr9L2jCZ0M7HoamKkl u6ky4rkILLyJTlrE78deTFyi4 U7NXOubXW3GOObaXvoVqHufM2 3 Oyc+HVDdkWwdf6DiWkjur5ogv 7krlQm1WjfuKUYlgrEndOcmNV Q4u8GuSa5uZHRtyUW6kWV3rP7 i CxMxFfN6COcmZ963GmIvnQRbA czkV39lJ3BfcWE+CPNaVme2EE SezBfaSW7xF6OrDZBhldpbpUZ m fNogPG9vKBJulevnYTOrjT9zM XAfZ5y7CfLdPwO9SAqgV9XgRW NexnvzVh69qH2dUuEvOpT8QEr u Q4PztgV6MYBtaDCkGTfqVFC7H 11ay0J1TTYnTUPrIMB8uTX7yT 1hbGlnbjogbGVmdDsgdmVydGl j NMkuNBcrX479KODawPjkQzCyV GluZyBEYXRlOiAgMTIvMDUvMj AyNDwvdGQ+MCDfTIC7jFtwKOD n iJHvEIgkJd9wuPklgRktZY4aV HYkxjxfNKFwrS4wVKZpqMOrqH jhEV7aZJUeulgdi195AqRfDUU 0 JPQuzTSiS4AxnQ4mMeKxUMZjY LLnX8ZuuWWnJMecE318NKqfSl W8ZYGonvDkI2YbTMHhsZmvFyK 0 a5E0Ay2Jt4MysrllU1AwcJOnM sVwYglwECj7O9CpEzxmaOK+PC 00ISKiCZ62HVp2ZBN5xOdeUXo i QWEdJ2BfkB7kNaDyBEVsJZRxL yc+PHRhYmxlIHdpZHRoPScxMD DqExYvfOnoPO5lFg1rTIRiYED v vCcumNJlIcHwm9ttDLLsTTrdI Q0vsLerH1RouRB5LXEmd1b6Za 35H94pQ8RedTK+QJHhrCU0yGB 0 tQ8kIzJtIyW3QLldX931VyRsi FJaAsfup1der5wtxYt5CsM8IW GvwvCriIkeJGN8h6MbAw93W16 s IHdpZHRoPSIxNSUiIHZhbGlnb v9suQ3pUs5+XTIjlXV8dMN2hA 9aCaKdOrB1OElxQ542DnCmnXS v Imeqf0oho2wxbFb2BmBvSLEct pEafPbrURB7t7YpQe62W7FnyA wzh9FdUym6jp57lHPni9B4dBX 9 Q4VrEZMkwlsaaRUvrItuGK6cH KLugnscDEParM6jSVMiT2h7Nr TnGrL7EZhrQ7PkxkS1LDHwyVV g MRQiwGAHqM3dnhnuq9vipnweV bPgWBTwIAo9HRf2RRBpyJzkFr KzIFF9BfL7VXD0wAOheA5qsXd n lxblwB9vMep+XKW3vLZwkYEJR H0eIbdkaUV+BIWbYXK6eUzpPP wzKZOktD4dBCOeK5a5PgJqJaP 1 MTshE5EbkfX6KNYjsMEbIOHpq SCNoJ1accgmu7ugfcczCeAoHP AlNMq2MEz8FIOjgMsrRwZfXGE 0 SfG0UZK3yJLiiF9nmZxwcmpgu G9wOyc+XmahsMooLNQ3VFw2H3 WhJbm9GSRlpWecHB0neCGdODt u Et2fkSuuaMwcPH1jIOLwgjbbr 731SpUoq3lnHMHdiINuKUjzKD P1X65cj2N5KZCdXGAaSYO3hTP 4 eM0rqJaymahdzEBpqBczyoSpk UxlDWplXSitE041YHPynNgiQg BmGYo3V2WjLig7ZSQuyNanHC0 n uXSqRMkvTp2koIuytZjgAK5wX NPkoylii725EqZrv9ttIQVmzL DdMLrcDIR4V06hd8D3BAYpBLE w BKR1eNE7oO5xaEmrojkgjTUhf EhcccZafCigIKyvTVjlQ078CO ZlgCijUdBpzXw9X2KyRlc8YYN z iDhmIE1myIQiTYxnYa7djZrjx HxgNO6zESSavyqht614NpDzw4 tvXIYutHTbOAofDCK3J74hs5K 6 TWBoBYVcBRV0vIG6kY7yyZutf jogbGVmdDsgdmVydGljYWwtYW ylU360CNJlhLroNiLakWtwaoN g PHmaYPm4A2VmKreveRT+PC90Y ONjIJ16lJKuoKLzm9qrtWa1Pg CzNAGqTDS1uMrdMBmzx7MdAPX t O05wySWbs9B1DPZfdIgpwOBeL xMduLG5zK0rHQpglxjzt8nclx kzXanmu1vnoa47oR13I01vIBw p JXDnGNLcGAMpYNCtoQjbog8au G9wIi8+ACDzjFB8aRW5qV0qQJ VeHbR1NCjfN437QqDjoRZoFlv j b4ghj1hwyXu6AwQ6KDRtexTgn DmhINR7h7TtRz98O04wJPrkHJ UsWLSlRABgJGUzyKgsxs5wfX7 w Ii8+HAZekBL0cJR5uN4eHgNeF bM1GYeaI668ZkTjoQXkMmluR0 4yW5DrtHZ+QRYoBkx6QSVerRo s YC4qvHFvWZyoBh9wRIJ1RiEwO qQuDPgdR9BvDKDmlwszbyygoA Y4OYBcBWLofX06Cb9qdCbmOXU w cRXGiC9rzliff3mpmsttRpDzP CPqUXs4GRn4ATDqmIztDmJeCS Z3OqU7ETX9hLTacK4ahXqhrui g gK5hW3GvAGDkaegsGc63nT6uE dNlBdS4VYzvAmp+RklTSCwgSk FNRVMgVzwvdGQ+PRSoRGY2aHh l BHucRUIxdF2eYTCiC8r4AeSjX iM8MXqfY4RdVOMrnwumWm01oA 6dLaDjZvD6UUklT2CxbgQ9BWH w iPOgKQndWJG2I37nc8Z4CIYhC HHmXAR0gCN1rO2xwTbmmvzhaC BxxJinfgZuqWcrBWiwAKtjW38 6 RMXofNbrEjTcLxV7IeC6PoM5C 0IeOmz0WVPyfWqnCE9rjJSxNG toDe4sdSwhzAhjYO1xUGHpdan w LAKdwB7eFRFjmZXqxHsbJE5aL RFeqnyrx326HbPwXEB6JENtxI UhJ7EicK3lCnXnICUsHLAwF0A l zNUjQQmkR270GGrxZpQ6ZHNji xOnI9TlBGLwaShoHmH7p2F3Qw 44NyBZZWFyczwvdGQ+PHRkIHN 0 lWcwPAqhCTPqeZ9aGYUfC2l2K dFbPuU4FXmbT4WfJINkujuaBl 90bY0nPpTsDzE6KPcoU9HtqeB 6 QNOxuMNqPCaqUGZ3O79tj4B2I XAgEMZuUJZ7aCK2zZ9rcJhpnj ogbGVmdDsgdmVydGljYWwtYWx p I211ZKMfeSquAq1WOWS7F1KmC hf8ELDzcIazDE8fiRXrFXraXc 2onCdihDxqNW1sVHTywusaUEB k dN2oSWTccFOhwIzkRL2hJZMkk zqsb254BfWzGDL2LANdbPWuG7 BlyP0mSvApQIFeICMcF9MjoRT t TTznO587OSluEzN6CMUjrpAjE 2McYBGqaIckRlI5o6N0Tx1WOE wvdGQ+HN19yr08X5NpFmthDln 0 OHVrBZP9bUC7nV2gWWXnWLqjo 1T6gGJ2K6NimzQjsy7ho2fgWU VxCWasQ86aaVBuw6L3SOJcnHR 5 CPVfrBdxUwTefS88Bxs+PGNvb Ycsp6MxYlsop0svq1hnkHk7Bt UdMTYyfwQzdZnjIQH1f2CbIj4 8 X38rMTybMDIwUWGlDXCxPZVhy Edqkv1ywS0jXa0+MJIdvGK7zI K5eL1mBlZhQbK4CArxG520GyC v gKZhModgm9ddr1uqvGu1GfRpW UOysxWwzAtzMKP3z1YuVu83G6 VizNjzr0ClPze4fe13jCZse7K 5 jES7E1CkPKVqqieecDBmrMxsG K4pYZZuatupEZPrdH2iCEDdB7 n3VvAhZrS2WDuwV1NrsnP5DKA v lSHyHVDawIZSlC2catmfi9haw pibQoHzBTJwDWp1CSo9KGAfqD hkJsEcGUX5JhB1BMN8eQRprP0 h dPxtvittsX3iNcg+IRm4d8kmk GHwCM8yqCX2OJ78FG15tOBpz6 P1lZJ6Q4KsBCCjhndbmbfynNT 6 XBTfDWFpgM63Uy2ftAnsRp8nR ZSfULZ4DGPucMRhF2AyrN4vKg GzGWRoDEWqY8XxhUWtRRtwA52 6 ESjxCsZ3YJHfieArK7JfOXJpf WkxEiV1b1X1Pu5SLO81QF38BC 89jZPhz7C9bDL0H4ZqTGQverl t cklrhYY8OVQqWMRcbF70Sv1kk VoaQp8zUCCpEPP6SIEotUTdK4 JwzT7lMrHqMUNhOALyR3ZshNT t VLksN823UOygWxN0USEnwqQfA 4RrBKKkdLfiYvN7k8B4Ii3VLf 17OK18JE05dNFfu2L3pHF9G9S h FHZtfrcppgocfFK6TNTsODUhy X42Pn0asKbbKq1hMZPyXVO4RH LwnZKvI7MccZ6jTeWgHFBgXXU w L8FniEQbAWsdV882JNlwBtP4K IWfzzPhM8SnYUFtbVjcPhY3f4 I8Xe2WYLaosip6J7AhUvqjrSP + TA74GZZhJC42lRUgbSGdt2omr Ce8LcRdZJEqQZZ8fRlpUZcxn1 DvEEZyV30oxWBmt9B8KXLxpUc h cHN (more content not included)... [facility] Coding Summaryon 05-09-2024 Coding Summary HTMLBase 64 IkuhhazgNYx0sYm+PGhlYWQ+P B7CIKAdA79klTPkmJ4sG1OJCF lOSywgQVBQTElOSyIgbmFtZT1 kaXNjZXJu IC8+RC7qXMCmRxyvlVNsq8P5q JN2W73vtk5yNLhagUX0CCDfOc Yfiobam4rvxKk1IAhlGraqJvS t LVNaxC11VXS4zY26Wv79aMCvz SBkf9nkhKb1NyRzPBCyOZJ8yF xiDIlul8OiAIIcR12kgOHji2O 6 WLRroFihjZJqGuBhxWR2iI0eN Bmuailey5esctpfNkr7jr35rI Arr2O6zVF6A7OvtxV8TBAfeVV g BmwbfYBFvQ3jczyim2pzkbmdC lDlTVTnFHa4VXs7RJIloSziHt QlLD01COY8ZHCvnwVkA0MzFVV s mGljYtA4h2G9Zj6KD5IQTtxaB 1VNTUFSWTwvdGQ+FR60mq07C2 HeQybrTaq0JVQaJGM7gKA5lY6 n WRQyFAmnv4C8rLV7P6RvpoIgj z4ae7poXVPsCWykC52awKAdf2 W1TDCnbVV8WDLyqXjiLhJpaF4 3 Oyc+UUMosGbyc2PcSleto8dlo 1dixGa2XfdqTSEtjuTbkKemGB W7s6NlVj7gQTLewAU1fTB4xL2 i JbLsScV5MWjdO059WqSxpEKsC ujcZ82wK8SnyNP+FIUhYmi5KJ ScgGixTU6lJ6XrTIVolhyqaQS m eBenLM3wYZRoztomLOKizA8tB YGkJ0n3NgEfNaP6HXwiO9FzEF FsjjrpWm39tS6rZyIpClP0NAs u B5PkaxZ8JJYdvLBxDWmoYEQ2G 37fc5G8ILYvINMgSFW1nSQ3aB 1hbGlnbjogbGVmdDsgdmVydGl j JQemMCrdS426MPYsvCsxFwLnH GluZyBEYXRlOiAgMTEvMjUvMj AyNDwvdGQ+GEWzICK5eNelOFM n eJYaJQwvHn2tgBonlLfuRT4kX JZwgibjSPEzpD4bDGFyuGLqfS kwYV1rIORuokfqp213GjWfSLM 0 TSBhdEIwF4ZtvX3jMoIfFMZxE JHpC7BeoRDcFSyjC501DJwcIo W4RGWkayYgN6HrOSNarTocGwO 0 x3M2Ir7Mv2OwyoygB5YjtXYoJ rZvDzrkOHl7E4IzTsvtdHT+PC 88WVNzXO49IEg1WQY2pOmdEEj i TPUbJ4LgvT5dEzDgTXPgNLHjK yc+PHRhYmxlIHdpZHRoPScxMD JqGxErsDgnOU3zBq6pKVNgETL v vXhdwBOgBqOtc6bpMMAgLKwsU F6yeGozY6XxeBG9PUDyu9m9Rw 69R97bH4FfoKE+JHYgqOD5oOT 0 cW1zWyCtLzL7PTmiB242ScErx XVqYzybc5kux0bieUl1ThF1AJ XzalFkcYbpDGE0m4FgKu52I17 s IHdpZHRoPSIxNSUiIHZhbGlnb r3poM9gGq0+XPYmwFH9dTN6fR 2dFwSeTnQ4MRrzC283VwRynHP v Icphe9nul3exfXb2FyDnMVVzb sZrsPfdFYX1c8UdYb40Y9RjlC cnh6DvFvv6wz29mWHra9A8vID 9 N7AlYZHqpeivkLRabKloGA3cW FVxixffUMNneE5qGTPqV5t8Nw GnWcA1HPkwB0FapyZ0JGTuiFA g MACdiWPEmO8qfilla1osiffeT xUcKFAdHHz0LSw9IWMdjHluVx LxRHG5TtC1SDS5dZUuaB6ktAv n qwzdvI9lOts+AKJ0bXPppASBQ E8rFmgfaCI+PJChUQT5oEfaIR arERFymW7eHLAhA6f5MbPqKcZ 1 MNqkE8OvgpT5QHIgzKZcZKTmm WZYtM9hiizhm7npkajpIcRzGT CyNHi8NXs4JVKvuWfxWzDuMVI 0 WfY8ENK6kQYduC1jeRxemealc G9wOyc+WgjdrRlwJTY2SRt4D4 WrWkg2PEBfgUxcXF2imQEcOGi u Uz3qsLmwiRhaBT0hKZXiwvedy 905LnGhk1deVYZajRAkHBjgOG A3C66xk2N1LGShHFClDSD5bHC 4 cZ5vhSxehzhsvQEdmTmdprBgb ClxEBipHBgoP612QSRyaSrbAe ItAXx3X5WvDjw5AYHjrGogSN6 n cNTjOFczCi4zwPolpXmaHJ7cZ VVhuosfj891XkJbo5aeSOCmsY XqTZdxNPV9X51ct4K3JYSfZLJ w MHP7bPJ6kY5mkZtaykgcfQZou YmwcrWzuCsjFMmhDSxuN045ZS SzeQhvAaFxuWa9U4GmYvf7YWZ z xDtiTJ5fhIVeMFhdJt5rcPtnw ZqiAL2qMWIxkyvkg556UjXjr5 qzDIHjmBMiPIrnHZO8Q08xx8H 6 GJFdHJMqDYE8uUG1zM9qqLqmh jogbGVmdDsgdmVydGljYWwtYW qmK620XMRwiYlrPqYpcNhamyB g BPlrBOx6T6QbGtjkkNB+PC90Y BScBI86bCFyvZFxi9xfvHd3Jg PjVUItZKS0uGcaALduh1BtEPJ t T44qwCSht6H9WAQbmMdytRBlP dCzrOI1oC2gPTsrriioy8mfpq ldPopxg7ekhf20nX08J90yZOw p WGAdOCPmFCTsYUBjwInnqd2sl G9wIi8+JXTxuED7oHM3xY0gPR NjRoL8FMygJ142VxBdgETmWef j i7axs4kemCi6DuF1DEVlfyNlc RpnFBW5l9ZgTk42P53mKLuxCR OhBKNjDDLeWDPjiHagzu5rtQ6 w Ii8+BADohZK6dXV2xL3pTtHnD sM7BSgzK855CiWlvXPxLsteV1 9wW3UfvHY+EORpQtr0CYMqpAf s YN6sdMWtOHpbZb2oOMB9ZdKoV vCvGEceP7JqUJPhsuhrgglrbZ H9LWUdHHHnqS28Zn5uuOqqMTA w nOGLnN5okefla0qjjrdrMkXoZ OGjCQi9UBm2XJRkcUfxDkDtKX U9TeA6TVR9gALorX8vfKjmrhh g tB2sP7AvPCXdvvvmIs53uW7gG eCeMmG8RWrjEoc+RklTSCwgSk FNRVMgVzwvdGQ+GWQrSAY7eLr l TKitAYHceL5bQEVtP8f7BqYsA aK9WNbqS0RjMHEhlumzVy25tS 7lMcObEpG0PDqvG9PmzjV9HSH w wBLpPZpgCZN7K37rg3R8XMPkM EWaBWJ4uWY2pD3ioKkwcsyoqA FoqFatfqRtnQweJQurQUbsT07 6 EUEmuFliGqIuLwC5GnI9IyK7W 7YpVdr1UUJpyRjsJN4odFKxIU soTo8ipCajmZblZB0yGHHfxsl w OEVjiZ3zRAVlgXEggOzoYB5rW MStuahwv296AhXaDNP3OKKdiI EwH6CasA6yGdJeJTQaDHKaW2V l tJMpFRimR474KWktLmD5HDGyy nMhK9VcYWDbgRayRyY4z3K9Rv 44NyBZZWFyczwvdGQ+PHRkIHN 0 qVphHOhsMVIlcF6fQITzQ3g2U bPxHlJ5IFcnS1PaALAguoszCk 56bB1jAeVuNfT3KKiyF1TuszC 6 JNWksRFcVRqiTCX3U21zb4C8S FRiZYNyXNZ8fVA5iN1soJlzow ogbGVmdDsgdmVydGljYWwtYWx p F532ROBitMikCx5VVNK1R8TdR ri7OHEpmRrgTC2qeFLjCIakTl 2muNdbhMcbDH7xOMBdxvapJIH k nB6kNUGqeNFfkUreDV4gHNUqh hbmc347YfUdWQH2YIUicBIfV7 WkiG7mHcJeMSJjXKFyN3UqnPA t UWelJ984XCvhTmA7JCKxqrZsR 5BeUQSeeQrbFuP8a6I7Hu8ZYB wvdGQ+BK50bd73T5GeSztlSth 0 GXCvCHC1lYM1qO9zXFIxSSbhe 6I5tTP3U7ZjeaYcvf5vc8jwVB MvSWdxU51srPXux1X8DIFqhRP 5 YCRxtWubBzVtfI18Yba+PGNvb Ipgv1UtVppza9sku5jrvHq6Hs BrEJTyfwBooQvoYQE6c9MyNi1 8 J20aONtqDIDyEIYiPZYvHZOfz Lpygp9bkB4kMk8+TEUafNC2oW N4cV6hIuUzQnQ4QYweZ535NoC v yTEzNzzzw4rjj5mdgNy2EdCtU YMsqhOzsRlfXEN2t7YtRb64G8 DxsPxmy6FnPjf0bz45wUVxh2E 5 uOZ3C8QiQQPnzrzqqCPrkJwpH Z8lQPUezdofWZCcfB9cRVOuP5 n9OcDiMcN3FGjiB8OvteE5AFE v aZLdUKLuaGFNvH8ltmuxv9rha vfmQjMuQAUoWCn9HKi6RTDlzB yjBgRbAHN8UnA8FIU7zACilY7 h xZwjpyiukT6qSpy+UMp9r9eof HEiVC4loWF4OQ94KK06lMRqe8 U3uXZ6A0XwYJMlcozarktqkWR 6 VMTfLWMooC20Ke7saSoiMs4jQ PRkMGZ2ETSbvSPlF2BfxO4qFt ZfRTSaCIWpW9BlnMQpUEbgZ64 6 XLkeSaQ6AILubjAuZ5PxTLJhq LhyPhK1h1S6Bz7GHZ36WB53LV 80sGKah1M5gWK5R5BlEPJxzzy t pipoyLC8NEUiQTRloP49Ed6ln BnzMe6sEUMrUQH9NWQqtNTsA8 YxwJ0uZhAdHOVeOYSgA0XcjCM t GJkfL144RAtzPkM0QSAhneXrD 0AkHOSfwAsePvJ6z3S2Fn2RLq 39LD36AN93rYOwa5Y8uRZ4V5E h FAIgeetbfgxycXF3WDPyATFmp V54Cm7zgZtqTk1uGYThAZI1XE InkCCrL1JndP0vBgBvDQKuTXM w X7QssKKlOZgoE598UQeyBdJ4L EVxioOvD4LqGBWpyFsoAhM7y9 V8Qh0FGOgiicb6H6PoMwngeWA + QZ41ZSWhYW41wFWygNGyz1uub Kt3JfXsUEFfCTP2fEdcZOypl8 GzNOJlS76doBLsp2B2ELSogBp h cHN (more content not included)... Normal [facility] Basic Metabolic Panelon 04-16 Anion gap [Moles/Vol] 7.5 mmol/L Normal 6.0-15.0 [facility] Comment on above: Performed By: #### B MP ####[place] [id number] [place] [id number] [facility] Calcium [Mass/Vol] 9.2 mg/dL Normal 8.6-10.3 [facility] Comment on above: Result Comment: PERF ORMED BY: [facility] [address] [facility] [place] [id number] PATHOLOGIST [employer] SHIVAM CORREA M.D. Performed By: #### B MP ####[address] [address] [facility] Chloride [Moles/Vol] 105 mmol/L Normal 98-107 [facility] Comment on above: Performed By: #### B MP ####[address] [address] [facility] CO2 [Moles/Vol] 27.7 mmol/L Normal 21.0-31.0 [facility] Comment on above: Performed By: #### B MP ####[address] [address] [facility] Creatinine [Mass/Vol] 0.85 mg/dL Normal 0.70-1.30 [facility] Comment on above: Performed By: #### B MP ####[place] [id number] [facility] GFR/1.73 sq M.predicted MDRD (S/P/Bld) [Vol rate/Area] mL/min/{1.73_m2} Normal [facility] Comment on above: Performed By: #### B MP ####[place] [id number] [place] [id number] [facility] Glucose [Mass/Vol] 133 mg/dL High 70-100 [facility] Comment on above: Result Comment: [place] Glucose Reference Range is dependent on time and content of last meal. Glucose of more than 200 mg/dL in a nonstressed, ambulatory subject supports the diagnosis of Diabetes Mellitus. ADA recommended reference range Performed By: #### B MP ####[place] [id number] [place] [id number] [facility] Potassium [Moles/Vol] 4.2 mmol/L Normal 3.5-5.1 [facility] Comment on above: Performed By: #### B MP ####[place] [id number] [facility] Sodium [Moles/Vol] 136 mmol/L Normal 136-145 [facility] Comment on above: Performed By: #### B MP ####[place] [id number] [facility] Urea nitrogen [Mass/Vol] 23 mg/dL Normal 7-25 [facility] Comment on above: Performed By: #### B MP ####[place] [id number] [facility] Calcium [Mass/volume] in Ser um or PlasmaOrdered By: Bonita Kingsley on 05-06-2024 Calcium [Mass/Vol] Calcium [Mass/volume ] in Serum or Plasma 8.6-10.3 [facility] Carbon dioxide, total [Moles /volume] in Serum or PlasmaOrdered By: Bonita Kingsley on 05-06-2024 CO2 [Moles/Vol] Carbon dioxide, tota l [Moles/volume] in Serum or Plasma 21.0-31.0 [facility] Chloride [Moles/volume] in S aime or PlasmaOrdered By: Bonita Kingsley on 05-06-2024 Chloride [Moles/Vol] Chloride [Moles/vol ume] in Serum or Plasma 98-107 [facility] Creatinine [Mass/volume] in Serum or PlasmaOrdered By: Bonita Kingsley on 05-06-2024 Creatinine [Mass/Vol] Creatinine [Mass/v olume] in Serum or Plasma 0.70-1.30 [facility] Glucose [Mass/volume] in Ser um or PlasmaOrdered By: Bonita Kingsley on 05-06-2024 Glucose [Mass/Vol] Glucose [Mass/volume ] in Serum or Plasma High 70-100 [facility] Comment on above: ADA recommended refe rence rangeRandom Glucose Reference Range is dependent on time and content of last meal. Glucose of more than 200 mg/dL in a nonstressed, ambulatory subject supports the diagnosis of Diabetes Mellitus. No Panel InformationOrdered By: Bonita Kingsley on 05-06-2024 Estimated GFR (CKD-EPI) > 60.0 mL/Min [facility] Creatinine Clearance (Chem N/A [facility] Potassium [Moles/volume] in Serum or PlasmaOrdered By: Bonita Kingsley on 05-06-2024 Potassium [Moles/Vol] Potassium [Moles/v olume] in Serum or Plasma 3.5-5.1 [facility] Serum or plasma anion gap de terminationOrdered By: Bonita Kingsley on 05-06-2024 Anion gap [Moles/Vol] Serum or plasma an ion gap determination 6.0-15.0 [facility] Sodium [Moles/volume] in Ser um or PlasmaOrdered By: Bonita Kingsley on 05-06-2024 Sodium [Moles/Vol] Sodium [Moles/volume ] in Serum or Plasma 136-145 [facility] Urea nitrogen [Mass/volume] in Serum or PlasmaOrdered By: Bonita Kingsley on 05-06-2024 Urea nitrogen [Mass/Vol] Urea nitrogen [Mass/volume] in Serum or Plasma 7-25 [facility] Coding Summaryon 05-04-2024 Coding Summary HTMLBase 64 DetuhmniYHz4uHr+PGhlYWQ+P V9ISEJtN31ptVRlgW2cK3IZEO lOSywgQVBQTElOSyIgbmFtZT1 kaXNjZXJu IC8+ZP6zIFNpKqtghCTkl3D3i LH8R39rpj5fGWdyaWU5SLDhNq Uycfkgp8vpcAp9RZuaPacsPkK t DAAxwR50AZM2cO75Jh59aQPfs MJmv1umdQw6TgSoXJTbRVK9gL duIGtnp6LeOOQhB59izVDzo2J 6 RUZhcHtpbJUmOkXcmNM8zH1dQ Bjserlum7kilwlwYvl5dx53vZ Zfn6A6kTU5X2AvasV8EPZsiIK g OxdnbAUSlW3pfkuoc6uataspM rFkHZLnTHt4BWm9HZAcnRzlGz QuZB42QTT9QTEqfwEzB1XyTJK s bKzvJgE3y0O0Jk1JG8BAEehiV 1VNTUFSWTwvdGQ+QH47jm92F8 IbOlywZbp0GRQwQBW0pUX7aW5 n JVEuBYiak7I2dCN5Z9YholZuf y2sc9jqXXHdCQkjU74smVIdm1 P1XEKbjNM5SRYzfTfpGkLleK9 3 Oyc+VXPezCvde8NkPnluu4foc 1kzuJk9HcvzQKXttyTpfXosDQ Q2k1SqMe1cZQQobDK6gHN5lN5 i NiVpUpX6OZjbS031ByPbvTUsL lodU82iB7UffWC+MDMaWkd6UT ShrAynNG0iF4SbSYKwmktyqWC m nPmzBO5eIWFoyvvuOUKfrL4vZ ACmF0n5QvVsViM7RJvbS1IoLN NoivbfFc73lI3iItTlKnO1JKm u K9LdsxJ8QRWlwJJdXAydUJD2Z 80mi5F9ZARvIBBjBGE2bTS9mN 1hbGlnbjogbGVmdDsgdmVydGl j WAfwRMrnO669EBEogQgqAeJxK GluZyBEYXRlOiAgMTEvMjAvMj AyNDwvdGQ+LUIxNKO7yZnuRVN n gLJyGVuvBy5yeIdjuSdmEJ7cH YGygljoBVZuhU8fJDAmkUGazX ptJM5fXNDwpdqii834OnWwEUS 0 TVOpbMUdY4AcgU6eLaJjSGQsO SNsN4PnjHSoVKuaX875PJhlPi Q3EHCcwoKgY0JdHEWglCgqHeH 0 q5I0Wb4Fd8LejqomK2VewBTiI zTwFzgvCIc1C7UkVwvjkOO+PC 54GNCbHU32IIa0OIU2yRcuBUw i XOJzK9UjrN5uDqEgJSTsAQLbF yc+PHRhYmxlIHdpZHRoPScxMD ZvEdLnxOuoMO2eSs5rUMKsDBQ v yLkjyFCmOnPxd4bsXOAzCUyqJ I4ykZmdG3CpjSW7EBQus7b6Yc 01O69oS9WfyHM+GIYbnIF4gYY 0 aC4hFnOoMtK1HNnyK879YcBys PDeZkqdu0luc6tkiDq5MmR9RN YwbuNmgVniMWB0j2VlYt66C27 s IHdpZHRoPSIxNSUiIHZhbGlnb x3hbL0xBf5+RMBfnCR6xZE9iG 9vHmVoSbQ8ZIbiX659MfKjfHA v Newab1alw6kenHp9BrFlYCSis bRdqRtkHWS2k0StZu16Z0UxhQ yen7FbGzd0nh01zETvx5V5kQH 9 L3KrDQVhxzmqvDQqtFrsSK6vB YNlxvdoVFRnyN8rUTQwC0r4Bi OiJcJ7MIxsW7TqvgY3ZULpuYU g WKCrkEXKcH7cfywif9mpjfamK xBoBXQuZHn1QSf7XCPdzXxyMr LlODE3XyE8BDR5pTBfgM8fzPu n smzezL4mWzo+PUQ8mXDvrVVMW F5zGytsjFW+DXUfYTH5zHldIN fjSTBrsZ0vHNOeU0f1QwCnCiK 1 DYzjD3EprpD3LWIisMHiOELth AUHuP5cuqqlk4nnbmuvXyTvTA UtFWb3YMc7VATqqQcaUfPmOPT 0 BxI0KVY7pOYfwV0lkGlcryclo G9wOyc+WerjaVrtHZL5LMf8M4 CdJng6HONseEtwKT1hpTSgQLn u Ay3kxPxgyVrzDV9sDRYhavvud 422EuCpt2axTFQknBUqEQkxEB W2W85hm1J8KWRmDYYbVFR4fVJ 4 vC7mvYednenybZExgOsnppBhv DkcYJvcOPxuA233WDAjuRgdLk FlGSb5I5ZaIvf8LIAkyRugWD6 n jODjVYwrNc3htWktuPcvYH3wD SJiaigxe480AsRwf3ufAWYfrI PeGBybKPI2I01av5I1YXHwGGG w WWO1vZP5zA6zlSnqrwvunTMxx TvbkjBrcRizOKffSCjyX303EL LfqGwdPmAmmSr3V5FiTaz0HKG z eZijNL4oqGIcPMtiXe7alJuhs EabWC0hPCAfnphxo608QeAvf1 amWUOrcKYiAZapGYZ1F34le7Y 6 ICOxHLEdHFC6mWD1oZ1lmHaob jogbGVmdDsgdmVydGljYWwtYW bdW583KHUreQljWwPstEfmlzT g WWbuJIh2Y8NhJluazQH+PC90Y ZMhPJ08gNSteDBdc4chfMw7Jh UtPZNdQHX1jLnrXUzrm5FgGND t X96exTBzx4X6YVOiwNzetAYsB dIxxEO6qH9lDFodatnwv4zimx kuIngpe9tdqm46gL51K07iENp p UOWyRKJbMCHjLZLmuCjohs3vf G9wIi8+OSVcnQU3dTU2rV5qUX BsBjR3HOrnT009BiDqpLYvZfl j j6lix1hvmTk1DbZ1SYOxtsXrc OspCSR9q3ElNd50H16oJWrmKL QzJZFtBRBaRBPgfGswno2rnL4 w Ii8+AAYcaLU9rDR3vW7dWpMeY zQ3OPtzM766IhTbzREsLdyqO5 9lH1UvbHM+CFPlKul1JZZrqYp s KZ4tfSVrVCozDy2tJME4XjRvR dObJAgmB9NqEMFmapgzlpmbnB T7FJMdIWQliF89Xy4jdFcaHJQ w bADNlE2mdretn9jjyphxWqRxS DTqWFn7MHe3REDdtKaoBjGeHR W0TkX7TZT0yIVmwB4skNrusoi g uW2aM3OlGRCmkexgPu99nG2jR xMyDmG3BDuyGnl+RklTSCwgSk FNRVMgVzwvdGQ+MGGdTEQ9jIb l ADxzXVArqS1hCAXhT5a0ReUkE qM8AUnoO9AuOUCyghhxCl03uK 0nQxXpDbP1YHdfB9EiauT6SKK w iPHfHZltHLF2Q20ax0J2MKGoD SKgLGP9lXE3zD9nzGwnznzqkS SpdNzvmyXvoFlmRMtgYCoiM37 6 MNDuuMofUtQjIoV0LaK0GoW0T 4SgQnv5HAGsnVywDA2xzUPjNC zhYd2gmPjiuYzeDK7kWHQrhqi w SVLunK0nQFRorWYecFktIW1tC NCfvtfez222IrGiJCQ6XNYqrP PvH2TjsZ3gMiMzGWSxFNXyH4N l kBBuWKozY806PHjkVpL1VHYhn tJfA4UoVYTarHcwZdB2v8X7Wp 44NyBZZWFyczwvdGQ+PHRkIHN 0 gWmlBTbmGAEzeQ0zQQCdL9n9Y yDnHxM4DUwyI2SeEWSapsxiYt 74yK3nFvYcQuM3HBnoR5GsfzA 6 XPYlhZHiBZygIST1I85ys0W1T VMuYGHdLVZ6uYW7bT5ojXtnxq ogbGVmdDsgdmVydGljYWwtYWx p N666JAWakVmiOh0GINK4X2BxD cn2ITHthPqiXO2miDTqICflSt 8caGzenLmvDD5hDAItpholNEF k fD6qBFJboRWncYbaBO4yTPQqu ftbc077ExAoBRS3PKVihKJnM7 IksT6kHhHxWLHkVBUcK2HdlEV t JTsmL943NTdvPdG3GCIrbyXaS 8LtXOKhzIxoMxU2w2T0Nu7UJX wvdGQ+MU46ad48E8YlCriqPff 0 ICDyEEM4mHW1vI8oARSfCPfnb 6Z3yFF0I7GuiiSfcu6cz8naFQ NaPYdhT85pwXPox2Y3DUUxuBS 5 LRKtfSjjLhApkE95Ife+PGNvb Ljvi8DeFltoa2whx5artWw8Qc EmYKWnejTmmSqzEOF8v1KkQj4 8 T03tDPnuSFUjBUEuXFIjCLKrm Jqciy9smG4qTh8+POZoaDK7mU N2aO3kQvDkEoI1OPchC984JiH v vTVcFxeli1cdb2pemMw1PuHmO WXiwlJunTrxKCL9d5HsXc86C3 KxtZeel2YyEyj8bk58pYFua1P 5 xMN8M5QdKAAcufxnkEYzeNhbI R4mOFElcqkuQNLqrO2yLALbK2 t0JuHjUzF8HIiaN8XinoT3XLJ v gBXvOMWwrMTLyR0ciepoe3pqi zqkUlFtRVRzDFl9QZs1IDXxqZ dmLgDkFEU5VbZ4GWB2mIPtuP7 h eNtcawyyaN4cIeq+PNj1y2nsz KXaUP8dyBB0OD95QN33jYFkw8 U7hEB0L6TdZORlbnllufnmfQM 6 WYWxVODuxZ20Ye4qmVajMn5wH FNsVHL4MUAxqRAnD3CtaM4yPj ZuVCAaBGKdP1UnmPZqJSjxI44 6 FKskIlX0IVLwwzYvD7EkSXMna TtyArS2s3Q1Xm7OTD43YT41KY 55jTJop7J0eRS0V7LqLFBhaxw t zwljaSZ2LQKqKXCpcM20Yf3lj NzkSl7tIARvVDE5REXdqBJuJ7 QwpV7oYzJoUTJjGTAoO5TlvRK t IMiyO254SQyyHmF1ZYVqtoEoO 2IcQJZlfJoeCfO7i4C3Ew1KVq 66TW20GY00wKQfs1S0oDJ2H0Z h UPYhsjwrlxmxjAJ3SQUcPGPnd D37Gq6hdYauLb7mUKHrDOH9FV WajYMwJ7OcmR3wZrRhNTZlGJD w T2UqhNQfDBkgE265VXyqPiL8S BPimgGlD2PlHSJfyDriEpJ3m8 O0Ur9FHIjbouu1B8IaJxcvhVW + JV17PBNaEL39jZYseGHhr7btb Pi9FbKlIEOuKOH6sJtjPUxxm7 KwSTTrM61lqHVxh1Q4GMYjkFp h cHN (more content not included)... [facility] Consent Formson 04-29-2024 Consent Forms [id number]#[email or web address] FF [facility] Coding Summaryon 04-27-2024 Coding Summary HTMLBase 64 TzhlycjmEQa8mIz+PGhlYWQ+P F0LDRYvF01ltWVosK1sZ4AGCK lOSywgQVBQTElOSyIgbmFtZT1 kaXNjZXJu IC8+NI8cOEAlUnpdrZFyg0C2c YC1L50pkq3zRNtucCF5AUTmDa Ivxrypd3jrxJb2PFsjQbcgUvA t QUBmgN63YVF5cP57Pv33wJOvo CVfv1pvgTj8UdOgDVJrEBR7gK rnNXivg4OtRNXvO83ohJAsk9W 6 UURtqFvryQCrFePxuML4hC0lM Djsjtnxx5qnkogwAwa6zd84tZ Hrt6L4bDD2H6IgqiM3QIZjkQX g WchhtVBDdQ8hzeeks9ltooixQ pNdEAErUXu1YEn6SJCegDstRg DkSC99YVB7PMGlnsOnG3KmZCS s rVktAjF0r1H2Ki3ER1GWGwqvM 1VNTUFSWTwvdGQ+QA98yt96K0 WgYoxxTmi5ZBUhQVD2lIE2sF8 n KFTuBCpkz8Z2tDX8W6OltrKao x5cm1ixPTAnXWhuK53vyGZct2 Q5EVFtxYL4FQYauWqpCeZbgL0 3 Oyc+LOFoqNpmq9XnGackw0ryi 8gglRr9CryvPXSzbuDfhJljVH G8d9JbRv3gFOMnjWV7oQX2fH1 i OgEvFxI2JUihQ906LjEozTQiH crzM25bK8RrzGR+WYWaBej5EJ DktQmkPC9qK9ApASRdwefupAG m vMbsNE5sYKEeytjiCPPzcG9eM WHbE0v2McKqRyI2GXirE0AoSA XkzujkBa52lX9pLaDbLaS3LPk u I2QmpoH2BYVzaNFqEJttOXC8J 90ci5I0LIQfRUJyMMO3xRC9gO 1hbGlnbjogbGVmdDsgdmVydGl j CRucTLneH464MASftQgnPkMmW GluZyBEYXRlOiAgMTEvMTMvMj AyNDwvdGQ+LFKnSNS3rQlsDUC n lWJqTRxxSc6smMfdsBgzCT1cH KZmseegCYQidE4bWWMzhINazJ ghJG5wLQDfwrlgs819GfTiGBU 0 BNDraEKbF8ZalH0rXvUmEDBqW IEtM2WxeKWrRHvdW138TQjjRo B4NTMvdrFfK8UgQHYljPagPgQ 0 u9E4Up1Se3RzidgxZ0BxwMCcX sNiKtgzJJa8I7ViHarqmBG+PC 46YOPgUJ32LAa0UEE3vIaeKOn i RAOwS0MoiU3jFzYxNPIxUZUwY yc+PHRhYmxlIHdpZHRoPScxMD MeNiVigJhrHE1hOj5qUSEaJDZ v zCbrbFItNiOrg9klCHRqGEcnB K6plPwbB4GokYX9DHZhj6z7Ed 11D92sR3AuoNV+MQXvnLJ0lLR 0 kK1yGlZsZvW2HXyfN328MjPdt TZoLuciz0pdu9cilFw2NzV0XN PpcyRsxMscSTZ2t9BsGa20T12 s IHdpZHRoPSIxNSUiIHZhbGlnb z8piE3vLi2+SFNsbSS4vBB4mN 6rCzOlEvB7QSstH476KmWkyBJ v Dfnkm7cbv2seoOd7DoXmLJCbt oKegAjwOLU0u2HvRq03R4LsdK kbw1KpNyc4tv17eIFda6V6qAQ 9 T9GrCJYjmvgssWLrfDpxBC9nK RFbqvvmEHUupX2cGKPjO3w2Mm ZaBsJ1DBytA9SbrqV6OXOigCR g THDqqMUCfE5pgctgl7tbjsbiR tArEZFiUGr7KEo3ELCmgLuuOn CzVHK5FtG7IYZ7uDUytV1mxPe n wbeskZ3yNmv+XAQ0uEScsGBBW N2xAhiscVU+FSIxOXO4aQegGY qnCCQxuV0qBTDvD5j2FzKvVoO 1 EEbvU9FkidR4UFPuiJGyYUOut AQXiZ2dorjwl5qdqrzaMoAzNO DwXYh3XZl7KASbtThtUyTvYES 0 ErY6FCM4oPOwvC1xrJvglbrrl G9wOyc+OetvgWqvRDT6EEu9L8 FwZby6RFNeaPkxLQ9azAQeGBw u Es2vrZggoBkqSK1hUANqhqrzg 657GdFrs7dpUQVcqJXmFDyeAX D2R80tu4I1WIBcDVOkIHO9fGJ 4 lQ7qjVtaejgcqCUiyYqpjoPil AmfOCykSZdpR545YXCsoZcuCa QyLSp3T7VtHke7UJNwaEbrOO6 n zSPwAPssQa0mhZmknQslDL6cL RFuqvzen175RhUel5ihJQUzeU KaVTikJIE1L71sr7W9BTMjKCY w IAW9jQZ0aJ5irEshutswoSRbz ZxulmTkqSypYPvzHKxsW711XL BepHaaRsIfsHw1W0MtMeq5DGO z bOnzCP7azFHwQMlpFp5vvIion DhpHD4wLZPkbosyo615IiCkq9 ilTLPjfNJxGCtcIVJ1T29bs5I 6 PAMnKPTqNZC1oEV7iZ7tvImrq jogbGVmdDsgdmVydGljYWwtYW ecR216UYWgnPgtBsJtnTwomjM g NAknBZl4Y6OmDbgvlEK+PC90Y OVpAH72qARtqCUll0ufyXe7Iv AaPDLyLAD5nRypXJsat7EcSRJ t T73syKAjs4F5GUOlaRvnlIYmT oVtkTA3aK4kKFgiynrrv9jtbr kqObzgo1hesp74aL06N45wKKk p ITQeRQSmFZOjXVBbuOvvty5fh G9wIi8+OERzvHU3uJU2jW4hFV YwNmX1NKffJ654PeVkwOSqJut j v0nce7mrzDr3KcZ3BTHhkwTmi PffLHP8g3ZkQr40Q39eLValOC UfFSGnFTWeWJCwjTzeow0wkW8 w Ii8+OPJtdXK6zYB2zJ3oCuUcH cU2HPwhK023LfFjaUCxLfnkL2 6eN2PjzTQ+RGQlGbq9SCPblYm s ZC1jcXHaWZxrKy3fIIE5JcGwY wAiRKceN2SeHSTsahldsycsjP E9YNJaFZEinK80Zb8dsXkjXJY w sWYFqF7xauost0nfodpiFkEhB NUuICv3XJi9ZGIowUqqDaDfPB Q2NtV7YAR4uTMgaZ9mwYggcfd g uZ2bJ5LfYWQqbovhJe91lE0kT kHgYlF3FTiyQac+RklTSCwgSk FNRVMgVzwvdGQ+BRVcJLJ1gKx l JRlsLMRucQ7cPWYgC7k1KaIxH tE1XCqrZ1EpAHGdnmesLh86gC 6jYmFaYxO3JRwqQ4RtyrH0XUO w jXYyZCcmSAW1N07bz5O3EMDpD TRuYWY2iUP2lK4hlTftixjvaZ ZyhIotwcIhmOgmEUxlPGpdB56 6 TBTbsMtuZjKsOdT7HtH9BfP3Q 7AmYpv3AMJhqXfmTK9xnTCvFB cmJy3vuOdiaSlnMF7bMQBvdyq w JEKjqY2vDUCvpLZuxFuwFW0jL GJhfxdwx139KbNpFUG5TVAspO RcB2BxaI1sRpNvJQVoRGQrV3G l eGWxAHpfX363ZRucJtH3PDLih xAeO3MbAKZeaJytMyJ9n1R4Td 44NyBZZWFyczwvdGQ+PHRkIHN 0 qOqnLAbyQDGikI7lEDAgB4m9B zFbOjQ7RMvaY6KtOQApspslDf 75bR8kXrJlMcA6CYccP3TjazF 6 FJVtbBEvMUxzGSR0J76ze7M8T IHgTMRqHYE9jEC4xG3ukQkayv ogbGVmdDsgdmVydGljYWwtYWx p V163XRLajGbcZb9ZDUU4D6PbI md9XKWbsZmlFS9qnQUsPNtrUi 1thYewrSseVK5xJZDcnjyrBUP k jY5fZMQrgKAgfThcZN7fZODpx gnzz436NdGoNTL0LGYhxMExX5 IywW7uAcVpBRKhVZTjT5GalSQ t TWkeW101WMgpPjH6HZNxpiUhO 3JbNLJfpXetJfV0b7H2Qk6FIE wvdGQ+HW57dn20H8EaJuxmEfe 0 RSGeFVE7tLG2vF5rLHUdOGcpf 3W9rVE3F9ZthpMhih0ri9xmNT OoECdaQ91nmQYcg5X9KSDjuOI 5 QECowTntByGwbE23Nfp+PGNvb Mzhu5WrYdmjv6kqm4krtVm6Be BrDSTfltPqgOqhJTO3j5VpNk8 8 K80dJJevFVUdJOWeAMMaGZVdz Rhzzg0lmQ0bXn0+LMWuvXD8eA C3fI6nFmUeAvH2LTbuC665ReV v cKBjGifei4uvb0fpbZq5WiIdA DWgqfUelHikXZF2d5UvAt89H2 TucWudy1MgUct7ok33wAUvo3U 5 aRV0P7QkKDLobcorqQIwhRgeE K6iTTGysoguGAMqqQ4dAIIdW9 d0MeJbFjL9VNzqB5LxvlJ8WYV v nTVxWSAjrEPCtC5geypdd8iof cxkFnIgHACpWEo2AEv5TLLjcO hcOsOcTGN3VgH4LDN0iSYapB4 h tGrhycjixW7zXfs+VHr0b7ucu CWiSF3qpJV3CS46EW18sOLrt9 Z8qHR2A8YhQPZngknqkccrgRN 6 WTPtXZMmfT12Eo0umJyvUn6wX ZScDRJ5DHRnhXJlM8MiqA9aRb EwZKXqUQQbB1BltPRrOVdvD99 6 WYlvDhG8FJJwgiEaM8QeZNAoe WbnQlL6b3L9Zi4EBC51TM14TY 87zBNgl6A3kJF1Q2YsABOxkfa t sykioNL3IVCkFISrmX45Wd8jl XcyFn0wXFZoOGU8HCJvyWUeN8 PoaG6rPnKsKXPwUPBxI8IycND t IGeiL806RByzUeY7EXUxhiIhK 2CiVHQreRfiDtG2h6S6Rv7UXw 62KB67XR23oUXzv2E2sVD4L5A h YBEyihepgutiuGC5DFRmSALns X60Nj5qhOmvNj8vVQAuPCK6RT JoqERzO0SpkK5dXkDxIAAtBRC w U5PvaLNxSStzO021QNqmImV7L ULwqnNsC4KqCUOmyUrxZuI0k7 I7Oe2ADKwhijh5N0StZftsbRE + NE32LGFiRK27sFOmhIPye3vuu My8FeNzTZPtELS8uRbuBMqlv1 CkROHdZ97xnJXka9A7KFEwjEy h cHN (more content not included)... [facility] Coding Summaryon 04-18-2024 Coding Summary HTMLBase 64 NaagtuviKWn2zXl+PGhlYWQ+P E1AUZXnH33kkDGbkH3oK3OGGU lOSywgQVBQTElOSyIgbmFtZT1 kaXNjZXJu IC8+FJ4xKQVqSvvgfOCfm2J8t XQ2N02jmo5kEKuvsQJ2SIIoJz Evxuxrl4lpeCc6CHgoSesrMrZ t WJVyrC29YTK4nO76Ve78iIDbm KLnz7hmqTf0NhVaPHHgGAL2jK teLGtji5MuTIPyK46odQDus0O 6 EYDwwMwrnTSyQxIvcCS8tA2oI Kcudohov5eeuifhWit1kw33lO Ihh3B2xQF8H4KrcbD4TNTyhNR g PezorLFUgE3pqujfj2roylyoO pUnJQCjFRk9PPp9DHGfhWiqPn YkED25BRR9JRGhmfJxK2GbYBZ s zZzbXsJ1d5V3Kh0BN6JWMbftI 1VNTUFSWTwvdGQ+OA24mm88H7 OfZgedGfa2XQAuKJM8eHB6tD1 n NKNzMRpst2D7bQV6G0VpjsUgz n8xg9uqJAKuEKyuZ37dbLPwp6 Z8KJRhhMQ7TNGkfGkrYlHhiS8 3 Oyc+UOIzwIddp0NhKxknc1wwb 1aogLt5YpugMPLgftGocPwoHM Y2n0XcHa3fBUPmfQJ0dBB0eF6 i CiHhAfZ0HUzgB410OkChoXAyY wscP03vR9FmfPC+VZThFgk3ER MidWfdAV1kC2BqHZDotrlsbJE m eBcuXE3hLAUuliqcWNPgfQ4yY BEhB8l0JbEmVqB9PPmtZ1PyFR BytwftYn03fI4gJfJlZhH8NQc u N1LegpZ2AQLooTKzMSlcEJP5G 77oc1D1CCChAFPwQBE6yYW4pG 1hbGlnbjogbGVmdDsgdmVydGl j VAujURmeG450YUGyeQlvBnLsQ GluZyBEYXRlOiAgMTEvMDQvMj AyNDwvdGQ+FCDpDGW6zOzbGVH n cMGdDQwvVs0jnBpbaAzmAM3vV NZohcniBUTclL1xQESbpUAmaQ qiYC4mFCTlfwjkx350KhHfKYW 0 DJKfjYDiD8OykU7gWvXrPDOmH AIrH2KqyHZwULxbD353VMenVg E8COPtkbXvP0SeMMGszOscWkJ 0 k4A3Ck7Bb6EsmqmnX0DfhQNlW bOsFxwwIVk2U6EwWmogaEY+PC 57QQYpYZ47ISs8EKA5eTpvRKu i LRMaU2ClfK0qLpVxEGTdUOBrD yc+PHRhYmxlIHdpZHRoPScxMD HjPfWvjWwmIH8lHb6tENEeJEI v fHtcqBZgVqSpq1qrSTAsFHssI D6slMbdT9GzzFS8ZFYrx5f2Yr 57L94nB8RdxUU+NRJfdAR7nUN 0 sR0cFuIbDdZ9HJuvS698EvVqi ROePlnop8edl1vntYe0CoL8YI LikfEgkPovYIA1j8KhJx57I24 s IHdpZHRoPSIxNSUiIHZhbGlnb v2fzB5xGx7+JWWgjDQ1iQJ8mL 3zPgEaSgP8TKpxP147PfCvqDR v Zpwnp4pvo0agnLa2OkZoXYVth yRqeQitYMF1s6QkHo94T4NbwD zqn3FiHtz2cg43kSZjs0C7jWZ 9 Z4IzSHKayzvooODbrUlvXM4uB ONuxlvlFGOtpY6pDSMfZ3o8Ro HhFuD7VWyaH3FiwhO2DVCvgRS g NBXmiWJTqQ0imesna7apftznX jTgBWKyNOr3UBt9ICAsvOurXs SnWVP9IwT0CZG4vCBdrJ0pmYr n fztesU9aAna+FIH4oIRbhFWQX G6hPwjmbVM+ACHmDAW0aAbjIV drQRUclT1wNGDgJ8r3RxUaAyW 1 FCmkX2InzzG6COQgbMXkDXWad HSEeV7mghvpb6zlweaqSfQpUS WeZBm2IXo4REVgxDrxUsAfVID 0 WhK1QQJ7hBMkoH0roBcutiawo G9wOyc+ByekbKplQHS8BNt9F1 EcOic1SOSkkYewUS9fzAAcZBc u Tb1klMfqsJfqBX7vHXPqggquf 022BxPpb6cfNAWbdGWoQFvwWH L1F49fp3Q1XUBmSQHtQTH9xFV 4 uM6rcMwowscitMDogWcyowFxg KctCOfuSDggF561KFJmbFkeGd NsTZs3S5MlRcg3IWXvqDxnIH1 n bIUuMQddCe1fqIlrpKydJS1yN MJdogwhq706JxZux9jtRENdfK ElMPbzNPH7H10gl2C4YMFvTZP w RLV2oPW8pT0tjLzktnvooDIhj AhieqJbqIhyZUqaVBztD134TN IfoDcaZvNlqEp6A7SdLeu1ESA z aVuoPQ3hsDFfIDivAb2pnZonu WlzHI7tVOQhfuces728UlLhl4 snNOCpxORjZSdyGKY1H12at3B 6 FXOzOKYaOMQ8qWS8vP1ogKhig jogbGVmdDsgdmVydGljYWwtYW hzH324RXMtnHteOlSkkHiakuM g WEfwJXq7C5EhGauznII+PC90Y OHkYB00jMGpaJVvx4otmSp0Zo FsGBHaBOU1aMfsMSdky5FkYIL t I60yzOKuw9J0ETMnzCclzLAaV bHirLJ0tO9hHFqmbtnwu3mvop lmZgbmd5crms91eJ26D06mNVm p TAIqOEIxGYHsVVZrvWwlcx2gs G9wIi8+QWYdcPJ4aQV7aJ3eGP AvJrE6DWcpT978EpSmlGByRbr j f9nwy4mnbIl5PwZ6ITEkqtKdu BuaHEV2w4RcSi48N54rSVhmDU AsKFKjHLAmHQUioDewac7wuF9 w Ii8+KSSwvXL1mVF8yL5gUtDrJ kV6AIoqH214LwPoaAZdPokrJ8 9dC8GfpJO+OSHyOnc3YUYvmSw s XX4cyXEkTBdsGk1hTXV1HsQjS bYbCBbiG0MwFXErxrbhkejhlQ C2AIZcBNPatM53Dz4acSrdLHZ w iAYJgW2vfltku8eaubslZfLkU STsLDf2KDd9FQPcvSpiAxXbFR O1AjZ8ZOI9oCJqcZ2siOiwmib g sV8tS5BrNDAxgvaaEg62bZ6oD wHiAzC0CNsyLxk+RklTSCwgSk FNRVMgVzwvdGQ+ICVtQAA6mVv l HDiuNVOzeG5oOCCbW9u1NyIbC yY0DZteW4EmTDEwzinlZa09nB 2gZdJjCdW7OHwgA3PvtwG5UGJ w hDQmCIyfUPU6V45wk6G2EADwN AOsLKW8sRM9oE9fxIrhcjggiX JfcVjdlrEftAqwMEbaCEewJ44 6 WATbtNilDtLpGaG8YqW3NxF2O 3ZgOnp3BWXxrEaiBP3cjKLzHZ ccVc9mrXtrfKgnDO0fXDAekcv w HYMotG9qAZNvlNIvlVdeJR2pM NDmzlggg136CtLtKJD5ALVgqR ViM4HtwL2eRaCgTKVpDRFqT1F l cHMwSObuW559VStmJeK6CLGit qUdD1IrSXZkmHdhVnR8t1R1Bn 44NyBZZWFyczwvdGQ+PHRkIHN 0 qTpyPYumXLJcwD0nAJTpU3n8O bJzOwA9TWacI0SgDRZsfsnpGs 92gY6lWlNrVnG5GSfwQ0PjijQ 6 YVTpvLUoPGgnZEV9L03gv1K5W WJqYAFoMFM4wEX2qM7roEpxqg ogbGVmdDsgdmVydGljYWwtYWx p T075QRRwpVklNr0MCMA8Q7AjH qs1AHBqeWziLH8kuNKqNGtsMi 9yqKeepUkoHK7gKTIctfkvADE k vI6lCGLzzYEklIcoQV1yHJQtl ppvj232HoUqKIE3DZAurIVlY6 RwiH3yCnVfOGOwUGBtW6ArfLV t JRtmN607VUdhPnY5DMOhkkUfY 0WrVAIorGfjRlN2e6I5Lb0HQT wvdGQ+DS51qy61D0AdDmaaTxe 0 TYVxLVF7cRN1xX4jEYOvPNwji 3Q2eTK5Y8OazmAypp9wg5woGC GzLRxoO42kiKTki2Z9KWIdfWG 5 APXugXeoYdXgkX42Kps+PGNvb Vxif1SzVvkjg4awp0xsxFo0Bg NkBUAtudItsEfpLEQ0v4LuEl6 8 V82lBOtwUZNpKMYkVPGbAPLre Rfibs8qiT2mQr2+EKEgxEE0jJ B1rJ2xVuDtNeR0LYivQ440YpZ v tQQxJhaan4oky1jnjKw3HgTmL KKitlTtqSfdEML3q9YkRm57D2 KciXbvm0IuRvn8pv54uCBah1H 5 rHC5H7SoWTCmpcielEFxdJcyM L7nIUJtilanGNSfnQ6eUVHiK4 y5WmLgOyT3EUecZ4XkfvH9HYK v rYOaCTNaeYQPgA9yjflrd6yyc aubVcHxKJNfCDb6SQq9XHGayY xwJtPnDAT3RtW2XTJ2uYDddG9 h vRwdgrvpwB0cBek+UQb7y8xhd CYzYN3yoOH8RQ43XP07mIQlj9 V7gPB1C1TsBQTnifuvqsazmGX 6 CIMvSBRejH80In4qwPivKn4xI ZXtQDE4HZLtmTJbT3BsvR2yBu JmPLCzKKYgQ3FwsTCxBUetW68 6 TDtkUkV1HELtesTtS5CzLMRni UpxMaU7o2N4Sv6ZPX55RB86VG 26mUHdd9H0oJY3P1SjPOBtciz t kjhjdRB1MLUrRCUjcF53Zh1oc JdkHw7dXZDoYOE7KWCloPFaJ6 OduE4yBiDeXZUrVYRsJ2KvlXJ t QKuvU171DOswDmR0VLZsclXqG 8DyQAEhvJcjMoT5g4S4Ll0WQh 20PD58QS13aLExa7D5qLN3J2R h HQGzdvurgceokBB6JTEsWHSgt Y05Kz1dxBtfMl7fMCDsSGE0AR GqoVWeF1UtkC5xIoZwDKNxHRR w Z1KefHBgVIsmI618IVqbGhL6Y BRxphHeD4JsBHDrxHmaMbZ6l3 M6Gv2HTQxienk7I0EcGjcvlPU + GB22JEAfOR46xZSnaYFjw0ukb Vh5DlCcZPTsVNK4lBkgLNade1 PkFRHeO87tjCDun7Z3KOOydCg h cHN (more content not included)... [facility] Coding Summary HTMLBase 64 QfnyqebbMUf8rYa+PGhlYWQ+P M5UCNZfP58aiZFoiZ3wE1IQQK lOSywgQVBQTElOSyIgbmFtZT1 kaXNjZXJu IC8+VT2cVMYiLskutPBye2W4u KR2D21mcv7jZPdeuRV0EWXaYw Wsopjeu5edrLc4KWurWvqaMrG t NFYioC12FNY3rT36Ju83gAZmw NWdb2bhoJv1AkApANOaYSI3xA dkRKgoi1PqJVUcI66jsWTwd6R 6 ONMbqWlnsZDqWfOdnYG7yK5tJ Ydqliwcj3saqwlbMur5xu35vE Yyk8J1yZO4B6JbxwV5AGQslTN g BqilqLPLrV1xpvhhl7pztlpvT pIuSDVzWDt3GCj5UKJimVadJj OgYQ46GSH6CHBvocBbX7UzBBZ s zQqnQfG3n7T4Rj0LO8NHDsxlS 1VNTUFSWTwvdGQ+WK06rm76F1 OmDcloOsc7JLUeUIR2eBK2jF7 n FFDeOQetg9Z9jRX1C3GmvnSoi x2wg6maCRPdKJqqD60rwTQnb9 S0LBWkoDZ3PAQnpWasIcUgnA5 3 Oyc+WSEvcPgot3ZfBfvkt0hrz 6whwCi3ExdrWOStvfQijIewRG D6w5LqWs1rLREmsTP7qBG4xD2 i JsQuXtC7QZdzY226DiEnjCNaV eceT09gP1WafAT+UANfXkx4WU ZdkSpzUX1yH5ZnZSIqarwvwFK m aOcwVX2qRHTefebrLLWjpC7bV PFeV3p5AnDoLdF8VMkwO0TuCC RskhqeJg77kZ6cIfOsQbF7FGq u C6XfdfU1XYWesZKsGNduAMW9R 94wt0W3ZRPgUCByRWA4qEU2vA 1hbGlnbjogbGVmdDsgdmVydGl j NYhxADbwJ211IDWpzAdsLyBaB GluZyBEYXRlOiAgMTEvMDQvMj AyNDwvdGQ+GQFhDDH5pSuaCRI n oNGtFRpqKu2xoHndaYvzWI5vS KDvgevrHBZbfV4oRULgmFMvqX eaRP0zDLRunvahg700BcZnFPK 0 MZHeaQHtW9BbsQ1nKxYyMOLhY VRsZ5AcuRKeHFjcF206SVamBw O5EPXiatNnI6JeFBCnsOjtLnT 0 o1N7Ma7Ot9JnlgbaW6JroILjC rIhAxrsRKn4N0HiEaapwVO+PC 17SUKaJE91SKr6NGI0pAzsEVh i MCYpV6ZngI7yYeRwLYYrVQIwK yc+PHRhYmxlIHdpZHRoPScxMD KhQwRpoUixDA0tPj1bZLHaZEV v yIauzFKqYvFve9gqRHVuCDjaC M4yoPcgZ7XubCG8BNQev6d2Bm 99F01rV0NkgPA+PCWtsRI0sFL 0 cO3qPfNvOtQ3IRcfW045SxMzp KFtEnzgw9frg2qzgDu4OxJ2JR GuwaAxkDlrLOQ6w9GhBv39Z88 s IHdpZHRoPSIxNSUiIHZhbGlnb t1oeK7gZg2+CBKcsTU9dMD4mO 9cLcPkTrQ0SOlcT665SgCocXD v Porwx6tur9xtvJg9BdSqKUWkf xNoqVtmNAU8r9PqWf02L8KplX gcg9TiGzi9wa56fEAhy2V2kYD 9 G3ZnQNGggeyyaQDgeDstNU9fZ NTjoaogOTAjgV7mUJJiM2t3Pk WyKmY4QMdzO3ZkrzC9OEKpaEC g YPJunTCFkQ0ucjuus3xybzefD aChOKWwOKm2YNt6OJDhoUebWi AcAHP0YxO5QKW5kSPjfO0bjAc n valbkF1iNeo+ZRV8mRNsrWMSP X2hKnzlzNY+OUCaITZ9fAvgQN epBOMydP1lYTPiK8t8MiEgXqI 1 SMvdR3GpgkM5NZUsbDIeVYJqf DQDnN6skbjew0xhvhqzNmHeAT VfICo5OCw1HFGtgReuNvDgZBK 0 FpQ6PWC7tPUdhL9ckIyourwxa G9wOyc+JbnpfUtoTDO3MMf6D7 YmNbn4SWGjsIbfBP7hiYEyRPx u Oa1dyEezyZolHE5uJZWymkngw 171WoZwa3veDFFwzLZaTBiuVX V2D84pb8Z9VGEhQUUgGUG1bED 4 qP4zvUwesjgvxCKanPjzndLgb GoxZPapSMihB591HITiaEjpXl EhNTh5Y9MzSti3YIJlfXciAF5 n mKRbBAyhRb8gbKxetWlsFU6mB CTlpcwpk593AtYfq9cnCPIavN XyHEjlAVZ2B99ls9A6UFGuMHV w MVS0qPN4hL7itDcqwylzeOWql EkqthNgpOqyOQbeDXbuC122PW JatRviIeDnpGn4H5VpKoh1DWA z gPtjCP6ztBZlFXjjNe4nxQiua IhdRM5qFUEencltv115UpDzb0 moOGVekTUvBFnnHJE3J36sm1R 6 CKMtCLPcLDO9cVK2iR9spNhnq jogbGVmdDsgdmVydGljYWwtYW rsL303UDDklEarDnMqpDochnB g UMqwMJa6I0GjYhbroAL+PC90Y WHtQS85qYOgtALqy2mnpSy2Dx JeFQNpOKV0yGomCTiad3HsDKW t L01fnQIrj7T1BAOmxQfvpYYrF fDuwHT3pU0tBYbnqxexg3vpae fzSvsxg4kans69iF80H82pSDb p QWUaNFJiGAVySWMmzOspon9ad G9wIi8+QYYwfOU4wGZ0bQ2aPA AuUiB6DJjtU055YcCdoCVbJfo j d8ufc4eozLc3JpK4JZBkrvTmr PlpQBN4f8AgCk05Y05kKOssSS NiNSIoCEIxKFNqhRdipv7nlX8 w Ii8+PGNizAI3iXP2nY0tSgIrK sQ5VBixN843FvPhxMIgDbbuV0 3wT9RdhUK+VISwDhp4LSLwnEs s JF1fiJTcKLnxLi0gGAW1DkHgI oGiUAhjJ2EbZTWnwftwlijswO U6EQZqPOFwxJ50Ln4dcFubJSC w lDIKiK1ymuxlq4tsdbyjTaQpC QWkAMx5EEp8ROVjtWppLkMiXN T0SjK0YBA1oWQdgE2htEshlmj g wW8zC5BtPFUhasupHx44oK2uC mSuWxJ2JUvpVgl+RklTSCwgSk FNRVMgVzwvdGQ+GNWyHVJ2uId l FPkxSWGbbH8kPHQcG8w5ErAdO sE9DYjuY5ApYAAqhujjGm96tE 7vDoLqOqF3XQufX4SldvD1YGD w oHXeVJrlPLM1R75ni9M6UIOiY LPqEET5uUP1oQ9rrYskcqzqnT NuiJntmtNvzZkfWBwqRKamV14 6 VPAxjWrhIqKwLkU5ItL9AuH5B 4YkBac2WLLonRskMA1vfADaMN wkRg6yeSwlmMkwYH2vPBTepbp w HYVxeJ3eCECpvAGshVnzFH2wB XNnpehhx873CkToPWV3IDWagT KrF4EdgY4fDcWtENIwGAVkJ2S l nIIyGVhhZ329IBnfUfX7FSRuf tJzA6RbGFPezVtfBnN6t1L6Cf 44NyBZZWFyczwvdGQ+PHRkIHN 0 oQasRYzkAVOttW9zWXHfB0l6K gRhNyP2UKrdA3XzAXImukmkOa 64wE6fAvTxSmK1VSvtC9EdgiD 6 UBOebEPoMHgyZBX7D58qy3H1Q RVwZLFjRVZ1fCZ2yL5hrVuhum ogbGVmdDsgdmVydGljYWwtYWx p C472ELScoDvkBt6RJJR3K1CuZ cp0OARhkSkkTL5sxJZiWCewZj 0yrFfzlHawLG3gWKJoalqoOWW k vK3xHDGwjFZhrPbwKB1jHBLls lyvo326WnJuQLU4IVLxqEEtD7 BzeM4dFjIxIXAzGFHcO2WrhQJ t OZmqI229KCyaCoI6BBKlquOsT 4BiYCIljYanLaB5g5T1Tc1LMP wvdGQ+UN92ie43G7KxEueuPku 0 LTJcRKQ9fMA2oM1xSLIsFOmjt 6H8gKK2T3QgkyCivr8nw1frJK QcNRvlY45tmIXif4E0MSXzeSN 5 ONLcbRkbFeCymQ18Eke+PGNvb Qoya7DhRuypt5xwp3qciNe9Aw RwOVFxkqUtjInzBEF4w6RsXr6 8 J74tAElcOTInUCHfOGOgVDKpf Ljitx5jeC0nXk5+BGVzzQJ2lN U2tL6aQtYgXnR6FIxtP353ZiM v uVEfIfrcb4xml9ocpDl2JcVoR ZWbtaBpfAryLZW2z7WqGv27K1 TwnUzsn7SqXxh1qx73fOYse7J 5 aCI4W5AmZJDvjjbpzYRsoXenY N5uGUHqspzvOVQvuQ7oBFIgU4 n0NzMmNjP6AFwhF4MdnjE5ANQ v qULxAZWcaUCWrO9inyyjm3adw jljPfDpZRViZVu1OCq1TAXmeX ofSuIcOGQ3DsT6BKV4gGLwxJ9 h dXzdlandlP3rRmg+PLb7y4bpp JCiMO3meTJ9DV53RJ66hYOea3 R9cSD5R0EaJMJgdldxljpifBJ 6 XJXqVOPpkN64Qi2rgSaqMz9tB TIsBAN2RUBsvYMnV1SocI0cMi JaTASlECQmO6OsvSPjAWwoN49 6 IWacJsO3WZLblvVhH7SnDLCpd YvrJyO0q3Y5Rj4IZL19BQ49RG 36lPUtk9E2kFB8V9CsRMAusun t mjrjsOK0RQOeDWCwcZ29Rf3ow BxuGx6bXNLlBOD3ZSWpxZClY1 OxbT8bZwWjKBMaTFDmN0DrcLL t UTbxO864QCrsMpC1LZUakbGkF 7EfOOQodSlvLpS9q3V6Ii4THm 10DT55EL79eUKkj8N9mXE4I9W h CKXbtenqyxpnxJM0XNXpSBEno D66Dm2njWhqMu3nRDNgXNI6FJ UqyZTmJ7GoaC0aDxQeHRBeWCW w L0ZkxOEqEKchK410YJakQuV4M WLrnrRtJ3OgSPLeoEdnLrY4j8 E4Yh2LZMebtxh1Z5TiNprjlKG + BK69GYZdUW06rZBjwFWjw6xtc Ie9InCgZEFqVUM4xWngRPspu8 ItXSHoB15xkRBkf3I1YQJwlHx h cHN (more content not included)... 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, RVT Gender: M Additional Staff: Height: 175.26 cm Admit Date: Weight: 75.75 kg Admission Status: BSA / BMI: 1.91 m2 / 24.66 kg/m2 Department Location: [facility] Blood Pressure: 134 /76 mmHg Study Type: TRANSTHORACIC ECHO (TTE) COMPLETE Diagnosis/ICD: 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 [facility] US Heart Transthoracicon Aortic Valve Area by Continuity of Peak Velocity 2.69 cm2 [facility] Work Phone: [phone] Aortic Valve Area by Continuity of VTI 2.67 cm2 [facility] Work Phone: [phone] AV mn grad 9 mmHg [facility] Work Phone: [phone] AV pk grad 16.3 mmHg [facility] Work Phone: [phone] AV pk johnny 2.02 m/s [facility] Work Phone: [phone] LV A4C EF 35.9 [facility] Work Phone: [phone] LV Biplane EF 30 % [facility] Work Phone: [phone] LV EF 40 % [facility] Work Phone: [phone] LVIDd 6.97 cm [facility] Work Phone: [phone] LVOT diam 2.7 cm [facility] Work Phone: [phone] RVSP 41.9 mmHg [facility] Work Phone: [phone], [address] [place] [address] TRANSTHORACIC ECHOCARDIOGRAM REPORT Patient Name: FANI Elizabeth MAGGI Reading Physician: [id number] Bonita Kingsley MD, [facility] Study Date: 04/13/2024 Ordering Provider: [id number] BONITA KINGSLEY MRN/PID: [id number] Fellow: Nurse: Date of /Age: 12 1935 / 88 years Farm Equipment Mechanic: Karly Lin RD, RVT Gender: M Additional Staff: Height: 175.26 cm Admit Date: Weight: 75.75 kg Admission Status: BSA / BMI: 1.91 m2 / 24.66 kg/m2 Department Location: [facility] Blood Pressure: 134 /76 mmHg Study Type: TRANSTHORACIC ECHO (TTE) COMPLETE Diagnosis/ICD: 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; 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: Karly Lin RDCS, RVT Gender: M Additional Staff: Height: 175.26 cm Admit Date: Weight: 75.75 kg Admission Status: BSA / BMI: 1.91 m2 / 24.66 kg/m2 Department Location: [facility] Blood Pressure: 134 /76 mmHg Study Type: TRANSTHORACIC ECHO (TTE) COMPLETE Diagnosis/ICD: 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; 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 [facility] Work Phone: [facility] Work Phone: Wound Cultureon 04-11-2024 Wound Culture [...] <=0.5/9.5 Verified Vanc S 2 Verified [facility] Comment on above: Performed By: #### [id number] ####[facility] (DEFAULT)[address] [place] [address] XR knee RT 3V - NOT FOR ER U Nat 03-08-2024 XR knee RT 3V - NOT FOR ER USE [facility] [place] [address] XRay Report Signed Patient: Fani Chua MR#: [id number] : 1935 Acct:[id number] Age/Sex: 88 / M ADM Date: 03/08/24 [place] [facility] [place] Type: [facility] Attending Dr: Ramses Garcia DO Copies to: [...] FINDINGS. Impression dictated by: Henry Ramirez Jr., D.ORachel03/08/2024 4:14 PM Dictation Location: [place] [address] Transcribed By: [facility] 03/08/24 1614 Dictated By: Henry Ramirez Jr, DO 03/08/24 1613 Signed By: 03/08/24 161 Normal [facility] XR shoulder RT min 2V*on XR shoulder RT min 2V* [facility] [place] [address] XRay Report Signed Patient: Fani Chua MR#: [id number] : 1935 Acct:[id number] Age/Sex: 88 / M ADM Date: 03/08/24 Loc: SOX Room: Type: [facility] Attending Dr: Ramses Garcia DO Copies to: [...] PROCESS. Impression dictated by: Henry Ramirez Jr., JerrodORachel03/08/2024 4:13 PM Dictation Location: [place] [address] Transcribed By: [facility] 03/08/24 1613 Dictated By: Henry Ramirez Jr, DO 03/08/24 1609 Signed By: 03/08/24 1613 Normal [facility] A1C with Estimated Average G [facility] 02-27-2024 Glucose [Mass/Vol] 114 mg/dL Normal [facility] Comment on above: Result Comment: PERF ORMED BY: [place] [address] PATHOLOGIST PALLET [employer] POSITIONER TERI EDMOND M.D. Performed By: #### P T #### [address] Activated partial thrombopla stin time (aPTT) in platelet poor plasma by coagulation aOrdered By: Bright Lopez on 02-27-2024 aPTT Coag (PPP) [Time] 39.2 s High 25.1-36.5 [facility] Alanine aminotransferase [En zymatic activity/volume] in Serum or PlasmaOrdered By: Bright Lopez on 02-27-2024 ALT [Catalytic activity/Vol] 18 U/L Normal 7-52 [facility] Comment on above: Order Comment: FASTI NG Y Performed By: #### C MP, TSH3 wRFLX, LIPID, [id number], [id number] ####[place] [address] [place] [id number] [facility] Albumin [Mass/volume] in Ser um or Plasma by Bromocresol green (BCG) dye binding methoOrdered By: Bright Lopez on 02-27-2024 Albumin BCG dye [Mass/Vol] 3.8 g/dL 3.5-5.7 [facility] Alkaline phosphatase [Enzyma tic activity/volume] in Serum or PlasmaOrdered By: Bright Lopez on 02-27-2024 ALP [Catalytic activity/Vol] 108 U/L High 34-104 [facility] Comment on above: Order Comment: FASTI NG Y Performed By: #### C MP, TSH3 wRFLX, LIPID, [id number], [id number] ####[place] [address] [place] [id number] [facility] Aspartate aminotransferase [ Enzymatic activity/volume] in Serum or PlasmaOrdered By: Bright Lopez on 02-27-2024 AST [Catalytic activity/Vol] 28 U/L Normal 13-39 [facility] Comment on above: Order Comment: FASTI NG Y Performed By: #### C MP, TSH3 wRFLX, LIPID, [id number], [id number] ####[place] [address] Automated basophil %Ordered By: Bright Lopez on 02-27-2024 Basophils/100 WBC (Bld) 1.0 % Normal . [facility] Comment on above: Performed By: #### H S TROP, CBC, A1C WTH eA, PTT, PT ####[place] [id number] [facility] Automated basophil countOrde red By: Bright Lopez on 02-27-2024 Basophils (Bld) [#/Vol] 0.0 10*3/uL Normal 0.0-0.2 [facility] Comment on above: Result Comment: PERF ORMED BY: [facility] [address] [place] [id number] PATHOLOGIST [employer]LET [employer] POSITIONER TERI EDMOND M.D. Performed By: #### H S TROP, CBC, A1C WTH eA, PTT, PT ####[address] Automated blood monocyte cou ntOrdered By: Bright Lopez on 02-27-2024 Monocytes (Bld) [#/Vol] 0.7 10*3/uL Normal 0.0-0.8 [facility] Comment on above: Performed By: #### H S TROP, CBC, A1C WTH eA, PTT, PT ####[place] [id number] [facility] Automated eosinophil %Ordere d By: Bright Lopez on 02-27-2024 Eosinophils/100 WBC (Bld) 1.4 % Normal . [facility] Comment on above: Performed By: #### H S TROP, CBC, A1C WTH eA, PTT, PT ####[address] Automated eosinophil countOr dered By: Bright Lopez on 02-27-2024 Eosinophils (Bld) [#/Vol] 0.1 10*3/uL Normal 0.0-0.45 [facility] Comment on above: Performed By: #### H S TROP, CBC, A1C WTH eA, PTT, PT ####[address] Automated monocyte %Ordered By: Bright Lopez on 02-27-2024 Monocytes/100 WBC (Bld) 16.3 % Normal . [facility] Comment on above: Performed By: #### H S TROP, CBC, A1C WTH eA, PTT, PT ####[place] [id number] [facility] Automated neutrophil %Ordere d By: Brightelli Lopez on 02-27-2024 Neutrophils/100 WBC (Bld) 58.6 % Normal . [facility] Comment on above: Performed By: #### H S TROP, CBC, A1C WTH eA, PTT, PT ####[place] [address] [facility] Bilirubin.total [Mass/volume ] in Serum or PlasmaOrdered By: Bright Doobduliodarling on 02-27-2024 Bilirubin [Mass/Vol] 0.8 mg/dL Normal 0.3-1.0 [facility] Comment on above: Order Comment: FASTI NG Y Performed By: #### C MP, TSH3 wRFLX, LIPID, [id number], [id number] ####[address] [address] [facility] Calcium [Mass/volume] in Ser um or PlasmaOrdered By: Bright Doobduliodarling on 02-27-2024 Calcium [Mass/Vol] 9.5 mg/dL Normal 8.6-10.3 [facility] Comment on above: Order Comment: FASTI NG Y Performed By: #### C MP, TSH3 wRFLX, LIPID, [id number], [id number] ####[place] [id number] [facility] Carbon dioxide, total [Moles /volume] in Serum or PlasmaOrdered By: Brightdomenica Lopez on 02-27-2024 CO2 [Moles/Vol] 30.6 mmol/L Normal 21.0-31.0 [facility] Comment on above: Order Comment: FASTI NG Y Performed By: #### C MP, TSH3 wRFLX, LIPID, [id number], [id number] ####[address] [address] [place] Chloride [Moles/volume] in S aime or PlasmaOrdered By: Bright Doobduliodarling on 02-27-2024 Chloride [Moles/Vol] 105 mmol/L Normal 98-107 [facility] Comment on above: Order Comment: FASTI NG Y Performed By: #### C MP, TSH3 wRFLX, LIPID, [id number], [id number] ####[place] [address] [place] [address] [facility] Cholesterol [Mass/volume] in Serum or PlasmaOrdered By: Brightdomenica Lopez on 02-27-2024 Cholesterol [Mass/Vol] 130 mg/dL Low 140-200 [facility] Comment on above: Order Comment: FASTI NG Y Result Comment: Chol less than 200 mg/dl low risk Chol 201-239 mg/dl borderline risk Chol 240 mg/dl and greater high risk Performed By: #### C MP, TSH3 wRFLX, LIPID, [id number], [id number] ####[place] [address] [place] [id number] [facility] Cholesterol in LDL Calc [Mas s/Vol]Ordered By: Bright Lopez on 02-27-2024 Cholesterol in LDL [Mass/Vol] 48 mg/dL 0-100 [facility] Cholesterol in VLDL Calc [Ma ss/Vol]Ordered By: Bright Lopez on 02-27-2024 Cholesterol in VLDL [Mass/Vol] 12 mg/dL [facility] Complete Blood Count Auto Di ffon 02-27-2024 Mean Corpuscular HGB Conc 33.4 g/dL Normal 32.5-35.6 [facility] Comment on above: Performed By: #### H S TROP, CBC, A1C WTH eA, PTT, PT ####[place] [address] [place] [phone] [facility] NRBC% 0.0 /100{WBC} Normal 0-0.5 [facility] Comment on above: Performed By: #### H S TROP, CBC, A1C WTH eA, PTT, PT ####[place] [address] [place] [address] [facility] Comprehensive Metabolic Pane rui 02-27-2024 Albumin [Mass/Vol] 3.8 g/dL Normal 3.5-5.7 [facility] Comment on above: Order Comment: FASTI NG Y Performed By: #### C MP, TSH3 wRFLX, LIPID, [id number], [id number] ####[place] [address] [place] [address] [facility] Creatinine Clr Calc Pharmacy 65.05 Normal [facility] Comment on above: Order Comment: FASTI NG Y Performed By: #### C MP, TSH3 wRFLX, LIPID, [id number], [id number] ####[place] [address] [place] [address] [facility] GFR/1.73 sq M.predicted MDRD (S/P/Bld) [Vol rate/Area] mL/min/{1.73_m2} Normal [facility] Comment on above: Order Comment: FASTI NG Y Performed By: #### C MP, TSH3 wRFLX, LIPID, [id number], [id number] ####[place] [id number] [facility] Creatinine [Mass/volume] in Serum or PlasmaOrdered By: Bright Lopez on 02-27-2024 Creatinine [Mass/Vol] 0.77 mg/dL Normal 0.70-1.30 [facility] Comment on above: Order Comment: FASTI NG Y Performed By: #### C MP, TSH3 wRFLX, LIPID, [id number], [id number] ####[place] [id number] [facility] Erythrocyte distribution wid th [Ratio] by Automated countOrdered By: Bright Lopez on 02-27-2024 Erythrocyte distribution width (RBC) [Ratio] 16.2 % High 12.0-14.8 [facility] Comment on above: Performed By: #### H S TROP, CBC, A1C WTH eA, PTT, PT ####[place] [id number] [facility] Erythrocytes [#/volume] in B lood by Automated countOrdered By: Bright Lopez on 02-27-2024 RBC (Bld) [#/Vol] 3.98 10*6/uL Normal 3.90-5.60 [facility] Comment on above: Performed By: #### H S TROP, CBC, A1C WTH eA, PTT, PT ####[place] [id number] [facility] Folate [Mass/volume] in Seru m or PlasmaOrdered By: Bright Lopez on 02-27-2024 Folate [Mass/Vol] 16.9 ng/mL >5.9 [facility] Glucose [Mass/volume] in Ser um or PlasmaOrdered By: Bright Lopez on 02-27-2024 Glucose [Mass/Vol] 92 mg/dL Normal 70-100 [facility] Comment on above: Order Comment: CHRISTIAN NG Y Result Comment: [place] Glucose Reference Range is dependent on time and content of last meal. Glucose of more than 200 mg/dL in a nonstressed, ambulatory subject supports the diagnosis of Diabetes Mellitus. ADA recommended reference range Performed By: #### C MP, TSH3 wRFLX, LIPID, [id number], [id number] ####[facility] [id number] Glucose mean value [Mass/vol ume] in Blood Estimated from glycated hemoglobinOrdered By: Bright Lopez on 02-27-2024 Average glucose Estimated from glycated hemoglobin (Bld) [Mass/Vol] 114 mg/dL [facility] Hematocrit [Volume Fraction] of Blood by Automated countOrdered By: Bright Lopez on 02-27-2024 Hematocrit (Bld) [Volume fraction] 36.4 % Low 38.8-50.0 [facility] Comment on above: Performed By: #### H S TROP, CBC, A1C WTH eA, PTT, PT ####[facility] [id number] Hemoglobin A1c percentageOrd ered By: Bright Lopez on 02-27-2024 HbA1c (Bld) [Mass fraction] 5.6 % Normal 4.3-5.6 [facility] Comment on above: Result Comment: Incr eased risk for diabetes: 5.7 - 6.4 diabetes: >6.4 glycemic control for adults with diabetes: <7.0 Performed By: #### P T #### [facility] [address] Hemoglobin [Mass/volume] in BloodOrdered By: Bright Lopez on 02-27-2024 Hemoglobin (Bld) [Mass/Vol] 12.2 g/dL Low 13.0-17.0 [facility] Comment on above: Performed By: #### H S TROP, CBC, A1C WTH eA, PTT, PT ####[facility] [place] [id number] [facility] INR in Platelet poor plasma by Coagulation assayOrdered By: Bright Lopez on 02-27-2024 INR Coag (PPP) [Relative time] 1.8 {INR} Normal [facility] Comment on above: Result Comment: INR Therapeutic [...] TROP, CBC, A1C WTH eA, PTT, PT ####[place] [address] [place] [phone] [facility] Leukocytes [#/volume] correc amparo for nucleated erythrocytes in Blood by Automated counOrdered By: Bright Lopez on 02-27-2024 WBC corrected for nucl RBC Auto (Bld) [#/Vol] 4.1 10*3/uL 4.1-10.5 [facility] Leukocytes [#/volume] in Blo od by Automated countOrdered By: Bright Lopez on 02-27-2024 WBC (Bld) [#/Vol] 4.1 10*3/uL Normal 4.1-10.5 [facility] Comment on above: Performed By: #### H S TROP, CBC, A1C WTH eA, PTT, PT ####[place] [address] [place] [address] [facility] Lipid Panelon 02-27-2024 LDL Cholesterol,Calculated 48 mg/dL Normal 0-100 [facility] Comment on above: Order Comment: CHRISTIAN Newman Result Comment: LDL ATP III CLASSIFICATION LDL less than 100 mg/dL Optimal LDL 100-129 mg/dL Near or above optimal LDL 130-159 mg/dL Borderline high LDL 160-189 mg/dL High LDL greater than 189 mg/dL Very high Performed By: #### C MP, TSH3 wRFLX, LIPID, [id number], [id number] ####[address] Triglyceride w/Reflex 60 mg/dL Normal 0-149 [facility] Comment on above: Order Comment: FASTSelena GÓMEZ Y Result Comment: TRIG ATP III CLASSIFICATION TRIG less than 150 mg/dL Normal TRIG 150-199 mg/dL Borderline high TRIG 200-500 mg/dL High TRIG greater than 500 mg/dL Very high Standard traceable to the Center for Disease Conrtrol and Prevention (CDC) test method. Performed By: #### C MP, TSH3 wRFLX, LIPID, [id number], [id number] ####[address] VLDL CHOLESTEROL 12 mg/dL Normal [facility] Comment on above: Order Comment: FASTSelena GÓMEZ Y Performed By: #### C MP, TSH3 wRFLX, LIPID, [id number], [id number] ####[address] Lymphocytes [#/volume] in Bl ood by Automated countOrdered By: Bright Lopez on 02-27-2024 Lymphocytes (Bld) [#/Vol] 0.9 10*3/uL Low 1.00-4.8 [facility] Comment on above: Performed By: #### H S TROP, CBC, A1C WTH eA, PTT, PT ####[address] Lymphocytes/100 leukocytes i n Blood by Automated countOrdered By: Bright Lopez on 02-27-2024 Lymphocytes/100 WBC (Bld) 22.7 % Normal . [facility] Comment on above: Performed By: #### H S TROP, CBC, A1C WTH eA, PTT, PT ####[address] MCH [Entitic mass] by Automa amparo countOrdered By: Bright Lopez on 02-27-2024 MCH (RBC) [Entitic mass] 30.6 pg Normal 27.5-35.2 [facility] Comment on above: Performed By: #### H S TROP, CBC, A1C WTH eA, PTT, PT ####[facility] [id number] MCHC Auto (RBC) [Mass/Vol]Or dered By: Bright Lopez on 02-27-2024 MCHC (RBC) [Mass/Vol] 33.4 g/dL 32.5-35.6 [facility] MCV [Entitic volume] by Auto mated countOrdered By: Bright Lopez on 02-27-2024 MCV (RBC) [Entitic vol] 91.6 fL Normal 83.5-101 [facility] Comment on above: Performed By: #### H S TROP, CBC, A1C WTH eA, PTT, PT ####[facility] [id number] Neutrophils [#/volume] in Bl ood by Automated countOrdered By: Bright Lopez on 02-27-2024 Neutrophils (Bld) [#/Vol] 2.4 10*3/uL Normal 1.8-7.7 [facility] Comment on above: Performed By: #### H S TROP, CBC, A1C WTH eA, PTT, PT ####[facility] [id number] [place] [address] No Panel InformationOrdered By: Bright Lopez on 02-27-2024 > 60.0 mL/Min [facility] 65.05 [facility] Nucleated erythrocytes [Pres ence] in Blood by Automated countOrdered By: Bright Lopez on 02-27-2024 Nucleated RBC Auto Ql (Bld) 0.0 /100{WBC} 0-0.5 [facility] Partial Thromboplastin Timeo n 02-27-2024 aPTT Coag (Bld) [Time] 39.2 s High 25.1-36.5 Th e [facility] Comment on above: Result Comment: A he matocrit value greater than 55% may lead to inaccurate results in coagulation testing. Patients having hematocrit values >55% require a special collection tube for coagulation studies. Please contact the laboratory at [phone] for redraw instructions. PERFORMED BY: [facility] [address] [place] [id number] PATHOLOGIST PALLET [employer]ONE POSITIONER TERI EDMOND M.D. Performed By: #### P T #### [place] [id number] [place] Platelet mean volume [Entiti c volume] in Blood by Automated countOrdered By: Bright Lopez on 02-27-2024 Platelet mean volume (Bld) [Entitic vol] 8.3 fL Normal 6.6-10.1 [facility] Comment on above: Performed By: #### H S TROP, CBC, A1C WTH eA, PTT, PT ####[facility] [place] [phone] [place] Platelets [#/volume] in Bloo d by Automated countOrdered By: Bright Lopez on 02-27-2024 Platelets (Bld) [#/Vol] 144 10*3/uL Low 150-450 [facility] Comment on above: Performed By: #### H S TROP, CBC, A1C WTH eA, PTT, PT ####[facility] [place] [id number] [facility] Potassium [Moles/volume] in Serum or PlasmaOrdered By: Bright Lopez on 02-27-2024 Potassium [Moles/Vol] 4.8 mmol/L Normal 3.5-5.1 [facility] Comment on above: Order Comment: FASTI NG Y Performed By: #### C MP, TSH3 wRFLX, LIPID, [id number], [id number] ####[place] [address] [place] [phone] [place] Protein [Mass/volume] in Ser um or PlasmaOrdered By: Bright Lopez on 02-27-2024 Protein [Mass/Vol] 6.8 g/dL Normal 6.4-8.9 [facility] Comment on above: Order Comment: FASTI NG Y Performed By: #### C MP, TSH3 wRFLX, LIPID, [id number], [id number] ####[place] [address] Prothrombin time (PT)Ordered By: Bright Lopez on 02-27-2024 PT Coag (PPP) [Time] 20.5 s High 9.0-12.9 [facility] Comment on above: Result Comment: A he matocrit value greater than 55% may lead to inaccurate results in coagulation testing. Patients having hematocrit values >55% require a special collection tube for coagulation studies. Please contact the laboratory at [phone] for redraw instructions. Performed By: #### H S TROP, CBC, A1C WTH eA, PTT, PT ####[place] [address] Serum globulin measurement b y calculation (mass/volume)Ordered By: Bright Lopez on 02-27-2024 Globulin (S) [Mass/Vol] 3.0 g/dL [facility] Comment on above: Order Comment: FASTI NG Y Performed By: #### C MP, TSH3 wRFLX, LIPID, [id number], [id number] ####[address] Serum or plasma albumin/glob ulin mass ratioOrdered By: Bright Lopez on 02-27-2024 Albumin/Globulin [Mass ratio] 1.3 {ratio} [facility] Comment on above: Order Comment: FASTI NG Y Performed By: #### C MP, TSH3 wRFLX, LIPID, [id number], [id number] ####[address] Serum or plasma anion gap de terminationOrdered By: Bright Lopez on 02-27-2024 Anion gap [Moles/Vol] 10.2 mmol/L Normal 6.0-15.0 [facility] Comment on above: Order Comment: FASTI NG Y Performed By: #### C MP, TSH3 wRFLX, LIPID, [id number], [id number] ####[place] [address] [place] [address] [facility] Serum or plasma high density lipoprotein (HDL) cholesterol measurementOrdered By: Bright Lopez on 02-27-2024 Cholesterol in HDL [Mass/Vol] 70 mg/dL Normal 23-92 [facility] Comment on above: Order Comment: FASTI NG Y Result Comment: HDL CHOL ATP-III CLASSIFICATION Cardiovascular Risk HDL > or equal to 60 mg/dL LOW HDL < 40 mg/dL HIGH Performed By: #### C MP, TSH3 wRFLX, LIPID, [id number], [id number] ####[place] [address] Serum or plasma total choles terol/high density lipoprotein (HDL) cholesterol mass ratOrdered By: Bright Lopez on 02-27-2024 Cholesterol.total/Chol esterol in HDL [Mass ratio] 1.9 {ratio} Normal <5.0 [facility] Comment on above: Order Comment: FASTI NG Y Performed By: #### C MP, TSH3 wRFLX, LIPID, [id number], [id number] ####[address] Sodium [Moles/volume] in Ser um or PlasmaOrdered By: Bright Lopez on 02-27-2024 Sodium [Moles/Vol] 141 mmol/L Normal 136-145 [facility] Comment on above: Order Comment: FASTI NG Y Performed By: #### C MP, TSH3 wRFLX, LIPID, [id number], [id number] ####[place] [address] [place] [address] [facility] Thyroid Stim Hormone w/Rflxo n 02-27-2024 Thyroid Stim Hormone w/Rflx 1.76 u[iU]/mL Normal 0.45-5.33 [facility] Comment on above: Order Comment: FASTI NG Y Performed By: #### C MP, TSH3 wRFLX, LIPID, [id number], [id number] ####[facility] [place] [phone] [facility] Thyrotropin [Units/volume] i n Serum or PlasmaOrdered By: Bright Lopez on 02-27-2024 TSH Qn 1.76 m[IU]/L 0.45-5.33 [facility] Triglyceride [Mass/volume] i n Serum or PlasmaOrdered By: Bright Lopez on 02-27-2024 Triglyceride [Mass/Vol] 60 mg/dL 0-149 [facility] Troponin I High Sensitivityo n 02-27-2024 Troponin I High Sensitivity 22.5 pg/mL High 0.0-20.0 [facility] Comment on above: Result Comment: PERF ORMED BY: [facility] [address] [id number] PATHOLOGIST [employer] POSITIONER TERI EDMOND M.D. Performed By: #### H S TROP, CBC, A1C WTH eA, PTT, PT ####[place] [id number] [facility] Troponin I.cardiac [Mass/vol ume] in Serum or Plasma by Detection limit <= 0.01 ng/Ordered By: Bright Lopez on 02-27-2024 Troponin I.cardiac DL <= 0.01 ng/mL [Mass/Vol] 22.5 pg/mL High 0.0-20.0 [facility] Urea nitrogen [Mass/volume] in Serum or PlasmaOrdered By: Bright Lopez on 02-27-2024 Urea nitrogen [Mass/Vol] 15 mg/dL Normal 7-25 [facility] Comment on above: Order Comment: FASTI NG Y Performed By: #### C MP, TSH3 wRFLX, LIPID, [id number], [id number] ####[place] [address] [place] [address] [facility] Vit. B12/Folate Profileon Folate 16.9 ng/mL Normal >5.9 [facility] Comment on above: Order Comment: FASTI NG Y Result Comment: Kelsey te reference range: >5.9 ng/ml The WHO technical consultation on folate and vitamin b12 deficiencies has determined that folate concentrations less than 4 ng/ml are considered deficient. Performed By: #### C MP, TSH3 wRFLX, LIPID, [id number], [id number] ####[facility] [place] [address] [facility] Vitamin B12 ser/plasOrdered By: Bright Lopez on 02-27-2024 Cobalamin (Vitamin B12) [Mass/Vol] 390 pg/mL Normal 180-914 [facility] Comment on above: Order Comment: FASTI NG Y Performed By: #### C MP, TSH3 wRFLX, LIPID, [id number], [id number] ####[facility] [place] [address] [facility] Vitamin D 25 Hydroxy Totalon 02-27-2024 Vitamin D 25 Hydroxy Total 29.3 ng/mL Low 30-100 [facility] Comment on above: Order Comment: FASTI NG Y Result Comment: ZENA MIN D STATUS 25(OH)VITAMIN D RANGE (ng/mL) Deficient <20 Insufficient 20 to <30 Sufficient 30 to 100 Reference: Sita MF,Oliva NC, Barbara COYLE, et al. Evaluation,treatment, and prevention of vitamin D deficiency; an Endocrine Society clinical practice guideline. JCEM. 2010; 96(7):1911-30. PERFORMED BY: [facility] [address] [place] [id number] PATHOLOGIST PALLET [employer] POSITIONER TERI EDMOND M.D. Performed By: #### C MP, TSH3 wRFLX, LIPID, [id number], [id number] ####[facility] [place] [address] [facility] Vitamin D+Metabolites [Mass/ volume] in Serum or PlasmaOrdered By: Bright Lopez on 02-27-2024 Vitamin D+Metabolites [Mass/Vol] 29.3 ng/mL Low 30-100 [facility] Alanine aminotransferase [En zymatic activity/volume] in Serum or PlasmaOrdered By: Alec Bliss on 02-26-2024 ALT [Catalytic activity/Vol] 20 U/L Normal 7-52 [facility] Comment on above: Performed By: #### P T #### [address] Albumin [Mass/volume] in Ser um or Plasma by Bromocresol green (BCG) dye binding methoOrdered By: Alec Bliss on 02-26-2024 Albumin BCG dye [Mass/Vol] 3.7 g/dL 3.5-5.7 [facility] Alkaline phosphatase [Enzyma tic activity/volume] in Serum or PlasmaOrdered By: Alec Bliss on 02-26-2024 ALP [Catalytic activity/Vol] 99 U/L Normal 34-104 [facility] Comment on above: Performed By: #### P T #### [address] Aspartate aminotransferase [ Enzymatic activity/volume] in Serum or PlasmaOrdered By: Alec Bliss on 02-26-2024 AST [Catalytic activity/Vol] 32 U/L Normal 13-39 [facility] Comment on above: Performed By: #### P T #### [address] Automated basophil %Ordered By: Alec Bliss on 02-26-2024 Basophils/100 WBC (Bld) 0.6 % Normal . [facility] Comment on above: Performed By: #### B MP, CBC #### [address] Automated basophil countOrde red By: Alec Bliss on 02-26-2024 Basophils (Bld) [#/Vol] 0.0 10*3/uL Normal 0.0-0.2 [facility] Comment on above: Result Comment: PERF ORMED BY: [place] [address] PATHOLOGIST [employer] POSITIONER TERI EDMOND M.D. Performed By: #### B MP, CBC #### [address] Automated blood monocyte cou ntOrdered By: Alec Bliss on 02-26-2024 Monocytes (Bld) [#/Vol] 0.7 10*3/uL Normal 0.0-0.8 [facility] Comment on above: Performed By: #### B MP, CBC #### [address] Automated eosinophil %Ordere d By: Alec Bliss on 02-26-2024 Eosinophils/100 WBC (Bld) 0.8 % Normal . [facility] Comment on above: Performed By: #### B MP, CBC #### [address] Automated eosinophil countOr dered By: Alec Bliss on 02-26-2024 Eosinophils (Bld) [#/Vol] 0.0 10*3/uL Normal 0.0-0.45 [facility] Comment on above: Performed By: #### B MP, CBC #### [address] Automated monocyte %Ordered By: Alec Bliss on 02-26-2024 Monocytes/100 WBC (Bld) 15.6 % Normal . [facility] Comment on above: Performed By: #### B MP, CBC #### [address] Automated neutrophil %Ordere d By: Alec Bliss on 02-26-2024 Neutrophils/100 WBC (Bld) 71.9 % Normal . [facility] Comment on above: Performed By: #### B MP, CBC #### [address] BNP ser/plasOrdered By: Alec Bliss on 02-26-2024 Natriuretic peptide B (Bld) [Mass/Vol] 306.0 pg/mL High 5-100 [facility] Comment on above: Result Comment: PERF ORMED BY: [place] [address] PATHOLOGIST PALLET [employer]ONE POSITIONER TERI EDMOND M.D. Performed By: #### P T #### [address] Bilirubin Test strip Ql (U)O rdered By: Alec Bliss on 02-26-2024 Bilirubin Ql (U) Negative Negative [facility] Bilirubin.total [Mass/volume ] in Serum or PlasmaOrdered By: Alec Bliss on 02-26-2024 Bilirubin [Mass/Vol] 0.7 mg/dL Normal 0.3-1.0 [facility] Comment on above: Performed By: #### P T #### [address] BioFire Not Detectedon 02-25 BioFire Not Detected Not detected Normal Not Detecte [facility] Comment on above: Result Comment: This is a duplicate RP2.1 COVID (PCR) result to be used for statistical tracking purpose only. PERFORMED BY: [place] [address] PATHOLOGIST PALLET [employer]ONE POSITIONER TERI EDMOND M.D. Performed By: #### P T #### [address] COVID-19 Detected/Not Detect edOrdered By: Alec Bliss on 02-26-2024 SARS-CoV-2 (COVID-19) RNA SHARRI+non-probe Ql (Nph) Not detected Not Detecte [facility] CT head/brain wo conon 02-25 CT head/brain wo con [facility] [place] [address] CT Scan Report Signed Patient: Fani Chua MR#: [id number] : 1935 Acct:[id number] Age/Sex: 88 / M ADM Date: 02/26/24 Loc: ER Room: Type: [facility] ER Attending Dr: Copies to: Alec Bliss DO Ordering Provider: Alec Bliss DO Date of Service: 02/26/24 CT/CT [...] Cyn Llamas M.D.02/26/2024 10:10 AM Dictation Location: [place] [address] Transcribed By: [facility] 02/26/24 1010 Dictated By: Cyn Llamas MD 02/26/24 1006 Signed By: 02/26/24 1010 Normal [facility] Calcium [Mass/volume] in Ser um or PlasmaOrdered By: Alec Bliss on 02-26-2024 Calcium [Mass/Vol] 8.9 mg/dL Normal 8.6-10.3 [facility] Comment on above: Performed By: #### P T #### [address] Carbon dioxide, total [Moles /volume] in Serum or PlasmaOrdered By: Alec Bliss on 02-26-2024 CO2 [Moles/Vol] 25.3 mmol/L Normal 21.0-31.0 [facility] Comment on above: Performed By: #### P T #### [place] [address] [place] Chloride [Moles/volume] in S aime or PlasmaOrdered By: Alec Bliss on 02-26-2024 Chloride [Moles/Vol] 106 mmol/L Normal 98-107 [facility] Comment on above: Performed By: #### P T #### [place] [address] [place] Color of Urine by AutoOrdere d By: Alec Bliss on 02-26-2024 Color (U) Light-yellow Normal Yellow [facility] Comment on above: Order Comment: Name Collection Type:: Clean-Voided Midstream Performed By: #### P T #### [address] [place] [address] [place] Complete Blood Count Auto Di ffon 02-26-2024 Mean Corpuscular HGB Conc 33.9 g/dL Normal 32.5-35.6 [facility] Comment on above: Performed By: #### B MP, CBC #### [facility] [address] [place] [address] [place] Monocytes/100 WBC (Bld) 16.32 % Normal 0.00-20.00 [facility] Comment on above: Performed By: #### B MP, CBC #### [facility] [address] [place] [address] [place] NRBC% 0.1 /100{WBC} Normal 0-0.5 [facility] Comment on above: Performed By: #### B MP, CBC #### [address] Comprehensive Metabolic Pane rui 02-26-2024 Albumin [Mass/Vol] 3.7 g/dL Normal 3.5-5.7 [facility] Comment on above: Performed By: #### P T #### [place] [address] [place] Creatinine Clr Calc Pharmacy 65.05 Normal [facility] Comment on above: Performed By: #### P T #### [place] [address] [place] GFR/1.73 sq M.predicted MDRD (S/P/Bld) [Vol rate/Area] mL/min/{1.73_m2} Normal [facility] Comment on above: Performed By: #### P T #### [place] [address] [place] Creatinine [Mass/volume] in Serum or PlasmaOrdered By: Alec Bliss on 02-26-2024 Creatinine [Mass/Vol] 0.80 mg/dL Normal 0.70-1.30 [facility] Comment on above: Performed By: #### P T #### [address] ECG 12 lead ECGon 02-26-2024 ECG 12 lead ECG [facility] [place] [address] [place] [address] Electrocardiograph Report Signed Patient: Fani Chua MR#: [id number] : 1935 Acct:[id number] Age/Sex: 88 / M ADM Date: 02/26/24 Loc: Room: [address] [place] [address] Type: ADM IN Attending Dr: Bright Lopez MD Ordering Provider: Alec Bliss DO Date of Service: 02/26/24 ECG/ECG [...] No significant change was found Confirmed by ALEC BLISS DO ([id number]) on 02/26/2024 5:27:36 PM Referred By: Electronically Signed By: ALEC BLISS DO Transcribed By: MUS Signed By Alec Bliss DO 02/25 1727 Normal [facility] Erythrocyte distribution wid th [Ratio] by Automated countOrdered By: Alec Bliss on 02-26-2024 Erythrocyte distribution width (RBC) [Ratio] 16.2 % High 12.0-14.8 [facility] Comment on above: Performed By: #### B MP, CBC #### [facility] [address] [place] [address] [place] Erythrocytes [#/volume] in B lood by Automated countOrdered By: Alec Bliss on 02-26-2024 RBC (Bld) [#/Vol] 3.74 10*6/uL Low 3.90-5.60 [facility] Comment on above: Performed By: #### B MP, CBC #### [facility] [address] [place] [address] [place] Glucose [Mass/volume] in Ser um or PlasmaOrdered By: Alec Bliss on 02-26-2024 Glucose [Mass/Vol] 105 mg/dL High 70-100 [facility] Comment on above: Result Comment: [place] Glucose Reference Range is dependent on time and content of last meal. Glucose of more than 200 mg/dL in a nonstressed, ambulatory subject supports the diagnosis of Diabetes Mellitus. ADA recommended reference range Performed By: #### P T #### [address] Glucose [Mass/volume] in Uri ne by Test stripOrdered By: Alec Bliss on 02-26-2024 Glucose Test strip (U) [Mass/Vol] Normal mg/dL Normal [facility] Hematocrit [Volume Fraction] of Blood by Automated countOrdered By: Alec Bliss on 02-26-2024 Hematocrit (Bld) [Volume fraction] 34.0 % Low 38.8-50.0 [facility] Comment on above: Performed By: #### B MP, CBC #### [address] Hemoglobin Test strip Ql (U) Ordered By: Alec Bliss on 02-26-2024 Hemoglobin Ql (U) Negative Negative [facility] Hemoglobin [Mass/volume] in BloodOrdered By: Alec Bliss on 02-26-2024 Hemoglobin (Bld) [Mass/Vol] 11.5 g/dL Low 13.0-17.0 [facility] Comment on above: Performed By: #### B MP, CBC #### [address] INR in Platelet poor plasma by Coagulation assayOrdered By: Alec Bliss on 02-26-2024 INR Coag (PPP) [Relative time] 1.7 {INR} Normal [facility] Comment on above: Result Comment: INR Therapeutic [...] heart valves: 3 - 4.5 PERFORMED BY: [place] [address] PATHOLOGIST PALLET [employer]ONE POSITIONER TERI EDMOND M.D. Performed By: #### P T #### [place] [address] [place] Ketones [Presence] in Urine by Test stripOrdered By: Alec Bliss on 02-26-2024 Ketones Ql (U) Negative Normal Negative [facility] Comment on above: Order Comment: Name Collection Type:: Clean-Voided Midstream Performed By: #### P T #### [place] [address] [place] Leukocyte esterase [Presence ] in Urine by Test stripOrdered By: Alec Bliss on 02-26-2024 Leukocyte esterase Test strip Ql (U) Negative Normal Negative [facility] Comment on above: Order Comment: Name Collection Type:: Clean-Voided Midstream Performed By: #### P T #### [place] [address] [place] Leukocytes [#/volume] correc amparo for nucleated erythrocytes in Blood by Automated counOrdered By: Alec Bliss on 02-26-2024 WBC corrected for nucl RBC Auto (Bld) [#/Vol] 4.7 10*3/uL 4.1-10.5 [facility] Leukocytes [#/volume] in Blo od by Automated countOrdered By: Alec Bliss on 02-26-2024 WBC (Bld) [#/Vol] 4.7 10*3/uL Normal 4.1-10.5 [facility] Comment on above: Performed By: #### B MP, CBC #### [place] [address] [place] Lymphocytes [#/volume] in Bl ood by Automated countOrdered By: Alec Bliss on 02-26-2024 Lymphocytes (Bld) [#/Vol] 0.5 10*3/uL Low 1.00-4.8 [facility] Comment on above: Performed By: #### B MP, CBC #### [place] [address] [place] Lymphocytes/100 leukocytes i n Blood by Automated countOrdered By: Alec Bliss on 02-26-2024 Lymphocytes/100 WBC (Bld) 11.1 % Normal . [facility] Comment on above: Performed By: #### B MP, CBC #### [facility] [address] [place] [address] MCH [Entitic mass] by Automa amparo countOrdered By: Alec Bliss on 02-26-2024 MCH (RBC) [Entitic mass] 30.8 pg Normal 27.5-35.2 [facility] Comment on above: Performed By: #### B MP, CBC #### [facility] [address] [place] [address] MCHC Auto (RBC) [Mass/Vol]Or dered By: Alec Bliss on 02-26-2024 MCHC (RBC) [Mass/Vol] 33.9 g/dL 32.5-35.6 [facility] MCV [Entitic volume] by Auto mated countOrdered By: Alec Bliss on 02-26-2024 MCV (RBC) [Entitic vol] 90.8 fL Normal 83.5-101 [facility] Comment on above: Performed By: #### B MP, CBC #### [facility] [address] [place] [address] Magnesium [Mass/volume] in S aime or PlasmaOrdered By: Alec Bliss on 02-26-2024 Magnesium [Mass/Vol] 1.5 mg/dL Low 1.9-2.7 [facility] Comment on above: Result Comment: PERF ORMED BY: [place] [address] PATHOLOGIST PALLET STONE POSITIONER TERI EDMOND M.D. Performed By: #### P T #### [facility] [address] [place] [address] Monocyte distribution width [Entitic volume] in Blood by AutomatedOrdered By: Alec Bliss on 02-26-2024 Monocyte distribution width Auto (Bld) [Entitic vol] 16.32 % 0.00-20.00 [facility] Neutrophils [#/volume] in Bl ood by Automated countOrdered By: Alec Bliss on 02-26-2024 Neutrophils (Bld) [#/Vol] 3.4 10*3/uL Normal 1.8-7.7 [facility] Comment on above: Performed By: #### B MP, CBC #### [facility] [address] Nitrite Test strip Ql (U)Ord ered By: Alec Bliss on 02-26-2024 Nitrite Ql (U) Negative Negative [facility] No Panel InformationOrdered By: Alec Bliss on 02-26-2024 > 60.0 mL/Min [facility] 65.05 [facility] Nucleated erythrocytes [Pres ence] in Blood by Automated countOrdered By: Alec Bliss on 02-26-2024 Nucleated RBC Auto Ql (Bld) 0.1 /100{WBC} 0-0.5 [facility] Platelet mean volume [Entiti c volume] in Blood by Automated countOrdered By: Alec Bliss on 02-26-2024 Platelet mean volume (Bld) [Entitic vol] 8.3 fL Normal 6.6-10.1 [facility] Comment on above: Performed By: #### B MP, CBC #### [facility] [address] [place] [address] Platelets [#/volume] in Bloo d by Automated countOrdered By: Alec Bliss on 02-26-2024 Platelets (Bld) [#/Vol] 138 10*3/uL Low 150-450 [facility] Comment on above: Performed By: #### B MP, CBC #### [facility] [address] Potassium [Moles/volume] in Serum or PlasmaOrdered By: Alec Bliss on 02-26-2024 Potassium [Moles/Vol] 3.8 mmol/L Normal 3.5-5.1 [facility] Comment on above: Performed By: #### P T #### [address] Protein Test strip (U) [Mass /Vol]Ordered By: Alec Bliss on 02-26-2024 Protein (U) [Mass/Vol] Negative Negative [facility] Protein [Mass/volume] in Ser um or PlasmaOrdered By: Alec Bliss on 02-26-2024 Protein [Mass/Vol] 6.5 g/dL Normal 6.4-8.9 [facility] Comment on above: Performed By: #### P T #### [facility] [address] Prothrombin time (PT)Ordered By: Alec Bliss on 02-26-2024 PT Coag (PPP) [Time] 19.6 s High 9.0-12.9 [facility] Comment on above: Result Comment: A he matocrit value greater than 55% may lead to inaccurate results in coagulation testing. Patients having hematocrit values >55% require a special collection tube for coagulation studies. Please contact the laboratory at [phone] for redraw instructions. Performed By: #### P T #### [facility] [address] Respiratory (Upper) Panel, P CRon 02-26-2024 [...] A H3 Blank Space ---- PERFORMED BY: [place] [address] PATHOLOGIST PALLET STONE POSITIONER TERI EDMOND M.D. Normal [facility] Comment on above: Performed By: #### P T #### [address] Respiratory pathogens DNA an d RNA panel - Nasopharynx by SHARRI with non-probe detectionOrdered By: Alec Bliss on 02-26-2024 Respiratory pathogens DNA and RNA panel SHARRI+non-probe (Nph) [facility] Serum globulin measurement b y calculation (mass/volume)Ordered By: Alec Bliss on 02-26-2024 Globulin (S) [Mass/Vol] 2.8 g/dL [facility] Comment on above: Performed By: #### P T #### [address] Serum or plasma albumin/glob ulin mass ratioOrdered By: Alec Bliss on 02-26-2024 Albumin/Globulin [Mass ratio] 1.3 {ratio} [facility] Comment on above: Performed By: #### P T #### [address] Serum or plasma anion gap de terminationOrdered By: Alec Bliss on 02-26-2024 Anion gap [Moles/Vol] 10.5 mmol/L Normal 6.0-15.0 [facility] Comment on above: Performed By: #### P T #### [address] Sodium [Moles/volume] in Ser um or PlasmaOrdered By: Alec Bliss on 02-26-2024 Sodium [Moles/Vol] 138 mmol/L Normal 136-145 [facility] Comment on above: Performed By: #### P T #### [address] Specific gravity Test strip (U) [Rel density]Ordered By: Alec Bliss on 02-26-2024 Specific gravity (U) [Rel density] 1.017 1.001-1.03 0 [facility] Troponin I High Sensitivityo n 02-26-2024 Troponin I High Sensitivity 29.3 pg/mL High 0.0-20.0 [facility] Comment on above: Result Comment: PERF ORMED BY: [place] [address] PATHOLOGIST PALLET STONE POSITIONER TERI EDMOND M.D. Performed By: #### P T #### [facility] [address] Troponin I High Sensitivity 30.9 pg/mL High 0.0-20.0 [facility] Comment on above: Result Comment: PERF ORMED BY: [place] [address] PATHOLOGIST PALLET STONE POSITIONER TERI EDMOND M.D. Performed By: #### P T #### [facility] [address] [place], [place] [id number] [facility] Troponin I.cardiac [Mass/vol ume] in Serum or Plasma by Detection limit <= 0.01 ng/Ordered By: Alec Bliss on 02-26-2024 Troponin I.cardiac DL <= 0.01 ng/mL [Mass/Vol] 30.9 pg/mL High 0.0-20.0 [facility] Urea nitrogen [Mass/volume] in Serum or PlasmaOrdered By: Alec Bliss on 02-26-2024 Urea nitrogen [Mass/Vol] 20 mg/dL Normal 7-25 [facility] Comment on above: Performed By: #### P T #### [facility] [address] [place] [id number] [place] Urinalysison 02-26-2024 Bilirubin,Urine Negative Normal Negative [facility] Comment on above: Order Comment: Name Collection Type:: Clean-Voided Midstream Performed By: #### P T #### [address] Glucose Ql (U) Normal Normal Normal [facility] Comment on above: Order Comment: Name Collection Type:: Clean-Voided Midstream Performed By: #### P T #### [place] [address] [place] Nitrite,Urine Negative Normal Negative [facility] Comment on above: Order Comment: Name Collection Type:: Clean-Voided Midstream Performed By: #### P T #### [address] Occult Blood,Urine Negative Normal Negative [facility] Comment on above: Order Comment: Name Collection Type:: Clean-Voided Midstream Result Comment: PERF ORMED BY: [place] [address] PATHOLOGIST PALLET STONE POSITIONER TERI EDMOND M.D. Performed By: #### P T #### [place] [address] [place] Protein,Urine Negative Normal Negative [facility] Comment on above: Order Comment: Name Collection Type:: Clean-Voided Midstream Performed By: #### P T #### [address] Specificy [place],Urine 1.017 Normal 1.001-1.03 0 [facility] Comment on above: Order Comment: Name Collection Type:: Clean-Voided Midstream Performed By: #### P T #### [address] Urobilinogen,Urine Normal Normal Normal [facility] Comment on above: Order Comment: Name Collection Type:: Clean-Voided Midstream Performed By: #### P T #### [address] Urine appearanceOrdered By: Alec Bliss on 02-26-2024 Appearance (U) Clear Normal Clear [facility] Comment on above: Order Comment: Name Collection Type:: Clean-Voided Midstream Performed By: #### P T #### [address] Urobilinogen Test strip (U) [Mass/Vol]Ordered By: Alec Bliss on 02-26-2024 Urobilinogen (U) [Mass/Vol] Normal mg/dL Normal [facility] XR chest 2V*on 02-26-2024 XR chest 2V* [facility] [place] [address] [place] [address] XRay Report Signed Patient: Fani Chua MR#: [id number] : 1935 Acct:[id number] Age/Sex: 88 / M ADM Date: 02/26/24 Loc: ER Room: Type: [facility] ER Attending Dr: Copies to: Alec Bliss DO Ordering Provider: Alec Bliss DO Date of Service: 02/26/24 XR/XR [...] Cyn Llamas M.D.02/26/2024 10:06 AM Dictation Location: [place] [address] Transcribed By: [facility] 02/26/24 1006 Dictated By: Cyn Llamas MD 02/26/24 1002 Signed By: 02/26/24 1006 Normal [facility] pH of Urine by Test stripOrd ered By: Alec Bliss on 02-26-2024 pH (U) 5.0 [pH] Normal 5.0-9.0 [facility] Comment on above: Order Comment: Name Collection Type:: Clean-Voided Midstream Performed By: #### P T #### [address] XR knee RT 3V - NOT FOR ER U Nat 02-03-2024 XR knee RT 3V - NOT FOR ER USE [facility] [address] [place] [address] XRay Report Signed Patient: Fani Chua MR#: [id number] : 1935 Acct:[id number] Age/Sex: 88 / M ADM Date: 02/03/24 [place] [facility] [place]: Type[facility] CLI Attending Dr: Roly Morales DO Copies to: [...] Ramirez Jr., D.ORachel02/03/2024 3:28 PM Dictation Location: [place] [address] Transcribed By: [facility] 02/03/24 1528 Dictated By: Henry Ramirez Jr, DO 02/03/24 1528 Signed By: 02/03/24 1528 Normal [facility] Anisocytosis [Presence] in B lood by Light microscopyOrdered By: Italia Moore on 01-22-2024 Anisocytosis Ql (Bld) Slight Normal [facility] Comment on above: Performed By: #### B MP, CBC #### [facility] [address] [place] [id number] [facility] Basic Metabolic Panelon Creatinine Clr Calc Pharmacy 65.05 Normal [facility] Comment on above: Performed By: #### B MP, CBC #### [facility] [address] [place] [address] [place] GFR/1.73 sq M.predicted MDRD (S/P/Bld) [Vol rate/Area] mL/min/{1.73_m2} Normal [facility] Comment on above: Performed By: #### B MP, CBC #### [facility] [address] [place] [address] [place] Basophils Auto (Bld) [#/Vol] Ordered By: Italia Moore on 01-22-2024 Basophils (Bld) [#/Vol] N/A [facility] Basophils/100 WBC Auto (Bld) Ordered By: Italia Moore on 01-22-2024 Basophils/100 WBC (Bld) N/A [facility] Basophils/100 leukocytes in Blood by Manual countOrdered By: Italia Moore on 01-22-2024 Basophils/100 WBC (Bld) 1 % Normal 0-2 [facility] Comment on above: Performed By: #### B MP, CBC #### [facility] [address] [place] [address] [place] Calcium [Mass/volume] in Ser um or PlasmaOrdered By: Italia Moore on 01-22-2024 Calcium [Mass/Vol] 8.8 mg/dL Normal 8.6-10.3 [facility] Comment on above: Performed By: #### B MP, CBC #### [facility] [address] [place] [address] [place] Carbon dioxide, total [Moles /volume] in Serum or PlasmaOrdered By: Italia Moore on 01-22-2024 CO2 [Moles/Vol] 30.6 mmol/L Normal 21.0-31.0 [facility] Comment on above: Performed By: #### B MP, CBC #### [facility] [address] [place] [address] [place] Chloride [Moles/volume] in S aime or PlasmaOrdered By: Italia Moore on 01-22-2024 Chloride [Moles/Vol] 106 mmol/L Normal 98-107 [facility] Comment on above: Performed By: #### B MP, CBC #### [facility] [address] [place] [address] [place] Cholesterol [Mass/volume] in Serum or PlasmaOrdered By: Italia Moore on 01-22-2024 Cholesterol [Mass/Vol] 122 mg/dL Low 140-200 [facility] Comment on above: Chol less than 200 m g/dl low riskChol 201-239 mg/dl borderline riskChol 240 mg/dl and greater high risk Result Comment: Chol less than 200 mg/dl low risk Chol 201-239 mg/dl borderline risk Chol 240 mg/dl and greater high risk Performed By: #### B MP, CBC #### [facility] [address] Cholesterol in LDL Calc [Mas s/Vol]Ordered By: Italia Moore on 01-22-2024 Cholesterol in LDL [Mass/Vol] 41 mg/dL 0-100 [facility] Comment on above: LDL ATP III CLASSIFI CATIONLDL less than 100 mg/dL OptimalLDL 100-129 mg/dL Near or above optimalLDL 130-159 mg/dL Borderline highLDL 160-189 mg/dL HighLDL greater than 189 mg/dL Very high Cholesterol in VLDL Calc [Ma ss/Vol]Ordered By: Italia Moore on 01-22-2024 Cholesterol in VLDL [Mass/Vol] 10 mg/dL [facility] Creatinine [Mass/volume] in Serum or PlasmaOrdered By: Italia Moore on 01-22-2024 Creatinine [Mass/Vol] 0.80 mg/dL Normal 0.70-1.30 [facility] Comment on above: Performed By: #### B MP, CBC #### [facility] [address] [place] [address] [place] Diff and CBCon 01-22-2024 Giant Platelet Tally 1 /100{WBC} Normal [facility] Comment on above: Performed By: #### B MP, CBC #### [facility] [address] [place] [address] [place] Mean Corpuscular HGB Conc 33.2 g/dL Normal 32.5-35.6 [facility] Comment on above: Performed By: #### B MP, CBC #### [facility] [address] Microcytosis Slight Normal [facility] Comment on above: Performed By: #### B MP, CBC #### [facility] [address] Myelocytes 3 % High 0-0 [facility] Comment on above: Performed By: #### B MP, CBC #### [facility] [address] Platelet Estimate Decreased Normal Normal [facility] Comment on above: Performed By: #### B MP, CBC #### [facility] [address] Platelet Morphology Normal Normal Normal [facility] Comment on above: Result Comment: PERF ORMED BY: [place] [address] PATHOLOGIST PALLET STONE POSITIONER TERI EDMOND M.D. Performed By: #### B MP, CBC #### [address] Eosinophils Auto (Bld) [#/Vo l]Ordered By: Italia Moore on 01-22-2024 Eosinophils (Bld) [#/Vol] N/A [facility] Eosinophils/100 WBC Auto (Bl d)Ordered By: Italia Moore on 01-22-2024 Eosinophils/100 WBC (Bld) N/A [facility] Eosinophils/100 leukocytes i n Blood by Manual countOrdered By: Italia Moore on 01-22-2024 Eosinophils/100 WBC (Bld) 1 % Normal 1-3 [facility] Comment on above: Performed By: #### B MP, CBC #### [facility] [address] [place] [address] Erythrocyte distribution wid th [Ratio] by Automated countOrdered By: Italia Moore on 01-22-2024 Erythrocyte distribution width (RBC) [Ratio] 16.8 % High 12.0-14.8 [facility] Comment on above: Performed By: #### B MP, CBC #### [address] Erythrocytes [#/volume] in B lood by Automated countOrdered By: Italia Moore on 01-22-2024 RBC (Bld) [#/Vol] 3.84 10*6/uL Low 3.90-5.60 [facility] Comment on above: Performed By: #### B MP, CBC #### [facility] [address] [place] [address] [place] Giant platelets/100 leukocyt es [Ratio] in Blood by Manual countOrdered By: Italia Moore on 01-22-2024 Giant platelets/100 WBC Manual cnt (Bld) [Ratio] 1 /100{WBC} [facility] Glucose [Mass/volume] in Ser um or PlasmaOrdered By: Italia Moore on 01-22-2024 Glucose [Mass/Vol] 87 mg/dL Normal 70-100 [facility] Comment on above: ADA recommended refe rence rangeRandom Glucose Reference Range is dependent on time and content of last meal. Glucose of more than 200 mg/dL in a nonstressed, ambulatory subject supports the diagnosis of Diabetes Mellitus. Result Comment: [place] om Glucose Reference Range is dependent on time and content of last meal. Glucose of more than 200 mg/dL in a nonstressed, ambulatory subject supports the diagnosis of Diabetes Mellitus. ADA recommended reference range Performed By: #### B MP, CBC #### [address] Hematocrit [Volume Fraction] of Blood by Automated countOrdered By: Italia Moore on 01-22-2024 Hematocrit (Bld) [Volume fraction] 34.9 % Low 38.8-50.0 [facility] Comment on above: Performed By: #### B ELIDIA, CBC #### [place] [address] [place] Hemoglobin [Mass/volume] in BloodOrdered By: Italia Moore on 01-22-2024 Hemoglobin (Bld) [Mass/Vol] 11.6 g/dL Low 13.0-17.0 [facility] Comment on above: Performed By: #### B MP, CBC #### [place] [address] [place] INR in Platelet poor plasma by Coagulation assayOrdered By: Italia Moore on 01-22-2024 INR Coag (PPP) [Relative time] 2.2 {INR} Normal [facility] Comment on above: INR Therapeutic Rang e [...] heart valves: 3 - 4.5 PERFORMED BY: [place] [address] PATHOLOGIST [employer]LET [employer] POSITIONER TERI EDMOND M.D. Performed By: #### C OVID [facility] #### [facility] [address] [place] [address] Leukocytes [#/volume] correc amparo for nucleated erythrocytes in Blood by Automated counOrdered By: Italia Moore on 01-22-2024 WBC corrected for nucl RBC Auto (Bld) [#/Vol] 5.0 10*3/uL 4.1-10.5 [facility] Leukocytes [#/volume] in Blo od by Automated countOrdered By: Italia Moore on 01-22-2024 WBC (Bld) [#/Vol] 5.0 10*3/uL Normal 4.1-10.5 [facility] Comment on above: Performed By: #### B MP, CBC #### [facility] [address] [place] [address] Lipid Panelon 01-22-2024 LDL Cholesterol,Calculated 41 mg/dL Normal 0-100 [facility] Comment on above: Result Comment: LDL ATP III CLASSIFICATION LDL less than 100 mg/dL Optimal LDL 100-129 mg/dL Near or above optimal LDL 130-159 mg/dL Borderline high LDL 160-189 mg/dL High LDL greater than 189 mg/dL Very high Performed By: #### B MP, CBC #### [address] Triglyceride w/Reflex 51 mg/dL Normal 0-149 [facility] Comment on above: Result Comment: TRIG ATP III CLASSIFICATION TRIG less than 150 mg/dL Normal TRIG 150-199 mg/dL Borderline high TRIG 200-500 mg/dL High TRIG greater than 500 mg/dL Very high Standard traceable to the Center for Disease Conrtrol and Prevention (CDC) test method. Performed By: #### B MP, CBC #### [address] VLDL CHOLESTEROL 10 mg/dL Normal [facility] Comment on above: Performed By: #### B MP, CBC #### [address] Lymphocytes Auto (Bld) [#/Vo l]Ordered By: Italia Moore on 01-22-2024 Lymphocytes (Bld) [#/Vol] N/A [facility] Lymphocytes/100 WBC Auto (Bl d)Ordered By: Italia Moore on 01-22-2024 Lymphocytes/100 WBC (Bld) N/A [facility] Lymphocytes/100 leukocytes i n Blood by Manual countOrdered By: Italia Moore on 01-22-2024 Lymphocytes/100 WBC (Bld) 22 % Normal 18-42 [facility] Comment on above: Performed By: #### B MP, CBC #### [address] MCH [Entitic mass] by Automa amparo countOrdered By: Italia Moore on 01-22-2024 MCH (RBC) [Entitic mass] 30.1 pg Normal 27.5-35.2 [facility] Comment on above: Performed By: #### B MP, CBC #### [address] MCHC Auto (RBC) [Mass/Vol]Or dered By: Italia Moore on 01-22-2024 MCHC (RBC) [Mass/Vol] 33.2 g/dL 32.5-35.6 [facility] MCV [Entitic volume] by Auto mated countOrdered By: Italia Moore on 01-22-2024 MCV (RBC) [Entitic vol] 90.9 fL Normal 83.5-101 [facility] Comment on above: Performed By: #### B MP, CBC #### [facility] [address] [place] [address] Manual blood segmented neutr ophils/100 leukocytesOrdered By: Italia Moore on 01-22-2024 Segmented neutrophils/100 WBC (Bld) 62 % Normal 50-70 [facility] Comment on above: Performed By: #### B MP, CBC #### [facility] [address] [place] [address] Microcytes LM Ql (Bld)Ordere d By: Italia Moore on 01-22-2024 Microcytes Ql (Bld) Slight [facility] Monocytes Auto (Bld) [#/Vol] Ordered By: Italia Moore on 01-22-2024 Monocytes (Bld) [#/Vol] N/A [facility] Monocytes/100 WBC Auto (Bld) Ordered By: Italia Moore on 01-22-2024 Monocytes/100 WBC (Bld) N/A [facility] Monocytes/100 leukocytes in Blood by Manual countOrdered By: Italia Moore on 01-22-2024 Monocytes/100 WBC (Bld) 12 % High 2-11 [facility] Comment on above: Performed By: #### B MP, CBC #### [facility] [address] [place] [address] [place] Myelocytes/100 WBC Manual cn t (Bld)Ordered By: Italia Moore on 01-22-2024 Myelocytes/100 WBC (Bld) 3 % High 0-0 [facility] Neutrophils Auto (Bld) [#/Vo l]Ordered By: Italia Moore on 01-22-2024 Neutrophils (Bld) [#/Vol] N/A [facility] Neutrophils/100 WBC Auto (Bl d)Ordered By: Italia Moore on 01-22-2024 Neutrophils/100 WBC (Bld) N/A [facility] No Panel InformationOrdered By: Italia Moore on 01-22-2024 Estimated GFR (CKD-EPI) > 60.0 mL/Min [facility] Creatinine Clearance (Chem 65.05 [facility] > 60.0 mL/Min [facility] 65.05 [facility] Nucleated erythrocytes [Pres ence] in Blood by Automated countOrdered By: Italia Moore on 01-22-2024 Nucleated RBC Auto Ql (Bld) N/A [facility] Platelet adequacy [Presence] in Blood by Light microscopyOrdered By: Italia Moore on 01-22-2024 Platelets LM Ql (Bld) Decreased Normal [facility] Platelet mean volume [Entiti c volume] in Blood by Automated countOrdered By: Italia Moore on 01-22-2024 Platelet mean volume (Bld) [Entitic vol] 8.5 fL Normal 6.6-10.1 [facility] Comment on above: Result Comment: PERF ORMED BY: [place] [address] PATHOLOGIST PALLET [employer] POSITIONER TERI EDMOND M.D. Performed By: #### B MP, CBC #### [facility] [address] [place] [address] Platelet morphology finding [Identifier] in BloodOrdered By: Italia Moore on 01-22-2024 Platelet morphology finding Nom (Bld) Normal Normal [facility] Platelets [#/volume] in Bloo d by Automated countOrdered By: Italia Moore on 01-22-2024 Platelets (Bld) [#/Vol] 115 10*3/uL Significant change down 150-450 [facility] Comment on above: [place]: 141 on -1513 Performed By: #### B MP, CBC #### [facility] [address] [place] [address] [place] Potassium [Moles/volume] in Serum or PlasmaOrdered By: Italia Moore on 01-22-2024 Potassium [Moles/Vol] 4.1 mmol/L Normal 3.5-5.1 [facility] Comment on above: Performed By: #### B MP, CBC #### [facility] [address] Prothrombin time (PT)Ordered By: Italia Moore on 01-22-2024 PT Coag (PPP) [Time] 24.8 s High 9.0-12.9 [facility] Comment on above: A hematocrit value g reater than 55% may lead to inaccurate results in coagulation testing. Patients having hematocrit values >55% require a special collection tube for coagulation studies. Please contact the laboratory at [phone] for redraw instructions. Result Comment: A he matocrit value greater than 55% may lead to inaccurate results in coagulation testing. Patients having hematocrit values >55% require a special collection tube for coagulation studies. Please contact the laboratory at [phone] for redraw instructions. Performed By: #### C OVID [facility] #### [address] RBC morphologyOrdered By: Chyna Moore on 01-22-2024 RBC morphology finding Nom (Bld) N/A [facility] Serum or plasma anion gap de terminationOrdered By: Italia Moore on 01-22-2024 Anion gap [Moles/Vol] 8.5 mmol/L Normal 6.0-15.0 [facility] Comment on above: Performed By: #### B MP, CBC #### [facility] [address] [place] [address] Serum or plasma high density lipoprotein (HDL) cholesterol measurementOrdered By: Italia Moore on 01-22-2024 Cholesterol in HDL [Mass/Vol] 71 mg/dL Normal 23-92 [facility] Comment on above: HDL CHOL ATP-III CLA SSIFICATION Cardiovascular RiskHDL > or equal to 60 mg/dL LOWHDL < 40 mg/dL HIGH Result Comment: HDL CHOL ATP-III CLASSIFICATION Cardiovascular Risk HDL > or equal to 60 mg/dL LOW HDL < 40 mg/dL HIGH Performed By: #### B MP, CBC #### [address] Serum or plasma total choles terol/high density lipoprotein (HDL) cholesterol mass ratOrdered By: Italia Moore on 01-22-2024 Cholesterol.total/Chol esterol in HDL [Mass ratio] 1.7 {ratio} Normal <5.0 [facility] Comment on above: Result Comment: PERF ORMED BY: [place] [address] PATHOLOGIST PALLET [employer]ONE POSITIONER TERI EDMOND M.D. Performed By: #### B MP, CBC #### [place] [address] [place] Sodium [Moles/volume] in Ser um or PlasmaOrdered By: Italai Moore on 01-22-2024 Sodium [Moles/Vol] 141 mmol/L Normal 136-145 [facility] Comment on above: Performed By: #### B MP, CBC #### [address] Triglyceride [Mass/volume] i n Serum or PlasmaOrdered By: Italia Moore on 01-22-2024 Triglyceride [Mass/Vol] 51 mg/dL 0-149 [facility] Comment on above: TRIG ATP III CLASSIF ICATIONTRIG less than 150 mg/dL NormalTRIG 150-199 mg/dL Borderline highTRIG 200-500 mg/dL High TRIG greater than 500 mg/dL Very highStandard traceable to the Center for Disease Conrtrol and Prevention (CDC) test method. Urea nitrogen [Mass/volume] in Serum or PlasmaOrdered By: Italia Moore on 01-22-2024 Urea nitrogen [Mass/Vol] 19 mg/dL Normal 7-25 [facility] Comment on above: Performed By: #### B MP, CBC #### [address] Anisocytosis [Presence] in B lood by Light microscopyOrdered By: Mick Putnam on 01-21-2024 Anisocytosis Ql (Bld) Slight Normal [facility] Comment on above: Performed By: #### P T #### [address] Basic Metabolic Panelon 08-0 Creatinine Clr Calc Pharmacy 61.06 Normal [facility] Comment on above: Result Comment: PERF ORMED BY: [place] [address] PATHOLOGIST PALLET ST[employer] POSITIONER TERI EDMOND M.D. Performed By: #### P T #### [address] GFR/1.73 sq M.predicted MDRD (S/P/Bld) [Vol rate/Area] mL/min/{1.73_m2} Normal [facility] Comment on above: Performed By: #### P T #### [address] Basophils Auto (Bld) [#/Vol] Ordered By: Mick Putnam on 01-21-2024 Basophils (Bld) [#/Vol] N/A [facility] Basophils/100 WBC Auto (Bld) Ordered By: Mick Putnam on 01-21-2024 Basophils/100 WBC (Bld) N/A [facility] CT angio headon 01-21-2024 CT angio head [facility] [place] [address] [place], [place] [id number] CT Scan Report Signed Patient: Fani Chua MR#: [id number] : 1935 Acct:[id number] Age/Sex: 88 / M ADM Date: 01/21/24 Loc: ER Room: Type: PRE ER Attending Dr: Copies to: Mick Putnam DO Ordering Provider: Mick Putnam DO Date of Service: 01/21/24 CT/CT angio head: left arm numbness ([id number]) CT/CT angio neck: left arm numbness ([id number]) CT/CT head stroke alert wo con: acute [...] Ramirez Jr., D.O.01/21/2024 3:47 PM Dictation Location: [place] [address] Transcribed By: [facility] 01/21/24 1547 Dictated By: Henry Ramirez Jr DO 01/21/24 1535 Signed By: 01/21/24 1547 Normal [facility] Calcium [Mass/volume] in Ser um or PlasmaOrdered By: Mick Putnam on 01-21-2024 Calcium [Mass/Vol] 9.0 mg/dL Normal 8.6-10.3 [facility] Comment on above: Performed By: #### P T #### [address] Capillary blood glucose tiffanie urement by glucometer (mass/volume)Ordered By: Mick Putnam on 01-21-2024 Glucose [Mass/Vol] 107 mg/dL Normal [facility] Comment on above: Random Glucose Refer ence Range is dependent on time and content of last meal. Glucose of more than 200 mg/dL in a nonstressed, ambulatory subject supports the diagnosis of Diabetes Mellitus. Result Comment: [place] om Glucose Reference Range is dependent on time and content of last meal. Glucose of more than 200 mg/dL in a nonstressed, ambulatory subject supports the diagnosis of Diabetes Mellitus. PERFORMED BY: [place] [address] PATHOLOGIST PALLET [employer]ONE POSITIONER TERI EDMOND M.D. Performed By: #### B MP, CBC #### [address] Carbon dioxide, total [Moles /volume] in Serum or PlasmaOrdered By: Mick Putnam on 01-21-2024 CO2 [Moles/Vol] 25.8 mmol/L Normal 21.0-31.0 [facility] Comment on above: Performed By: #### P T #### [facility] [address] [place] [address] [place] Chloride [Moles/volume] in S aime or PlasmaOrdered By: Mick Putnam on 01-21-2024 Chloride [Moles/Vol] 104 mmol/L Normal 98-107 [facility] Comment on above: Performed By: #### P T #### [address] Creatinine [Mass/volume] in Serum or PlasmaOrdered By: Mick Putnam on 01-21-2024 Creatinine [Mass/Vol] 0.88 mg/dL Normal 0.70-1.30 [facility] Comment on above: Performed By: #### P T #### [place] [address] [place] Diff and CBCon 01-21-2024 Mean Corpuscular HGB Conc 33.0 g/dL Normal 32.5-35.6 [facility] Comment on above: Performed By: #### P T #### [address] Monocytes/100 WBC (Bld) 17.72 % Normal 0.00-20.00 [facility] Comment on above: Performed By: #### P T #### [address] Myelocytes 3 % High 0-0 [facility] Comment on above: Performed By: #### P T #### [address] Ovalocytes Slight Normal [facility] Comment on above: Performed By: #### P T #### [address] Platelet Estimate Decreased Normal Normal [facility] Comment on above: Performed By: #### P T #### [address] Platelet Morphology Normal Normal Normal [facility] Comment on above: Result Comment: PERF ORMED BY: [place] [address] PATHOLOGIST PALLET STONE POSITIONER TERI EDMOND M.D. Performed By: #### P T #### [address] Poikilocytosis Slight Normal [facility] Comment on above: Performed By: #### P T #### [address] ECG 12 lead ECGon 01-21-2024 ECG 12 lead ECG [facility] [place] [address] [place] [address] Electrocardiograph Report Signed Patient: Fani Chua MR#: [id number] : 1935 Acct:[id number] Age/Sex: 88 / M ADM Date: 01/21/24 [...] was found Confirmed by Tay Wood DO ([id number]) on 01/21/2024 3:31:04 PM Referred By: Electronically Signed By: Tay Wood DO Transcribed By: MUS Signed By Tay Wood DO 4 1531 Normal [facility] Eosinophils Auto (Bld) [#/Vo l]Ordered By: Mick Putnam on 01-21-2024 Eosinophils (Bld) [#/Vol] N/A [facility] Eosinophils/100 WBC Auto (Bl d)Ordered By: Mick Putnam on 01-21-2024 Eosinophils/100 WBC (Bld) N/A [facility] Eosinophils/100 leukocytes i n Blood by Manual countOrdered By: Mick Putnam on 01-21-2024 Eosinophils/100 WBC (Bld) 2 % Normal 1-3 [facility] Comment on above: Performed By: #### P T #### [facility] [address] [place] [address] Erythrocyte distribution wid th [Ratio] by Automated countOrdered By: Mcik Putnam on 01-21-2024 Erythrocyte distribution width (RBC) [Ratio] 16.7 % High 12.0-14.8 [facility] Comment on above: Performed By: #### P T #### [facility] [address] Erythrocytes [#/volume] in B lood by Automated countOrdered By: Mick Putnam on 01-21-2024 RBC (Bld) [#/Vol] 4.10 10*6/uL Normal 3.90-5.60 [facility] Comment on above: Performed By: #### P T #### [address] Glucose [Mass/volume] in Ser um or PlasmaOrdered By: Mick Putnam on 01-21-2024 Glucose [Mass/Vol] 107 mg/dL High 70-100 [facility] Comment on above: ADA recommended refe rence rangeRandom Glucose Reference Range is dependent on time and content of last meal. Glucose of more than 200 mg/dL in a nonstressed, ambulatory subject supports the diagnosis of Diabetes Mellitus. Result Comment: [place] Glucose Reference Range is dependent on time and content of last meal. Glucose of more than 200 mg/dL in a nonstressed, ambulatory subject supports the diagnosis of Diabetes Mellitus. ADA recommended reference range Performed By: #### P T #### [address] Hematocrit [Volume Fraction] of Blood by Automated countOrdered By: Mick Putnam on 01-21-2024 Hematocrit (Bld) [Volume fraction] 37.4 % Low 38.8-50.0 [facility] Comment on above: Performed By: #### P T #### [address] Hemoglobin [Mass/volume] in BloodOrdered By: Mick Putnam on 01-21-2024 Hemoglobin (Bld) [Mass/Vol] 12.3 g/dL Low 13.0-17.0 [facility] Comment on above: Performed By: #### P T #### [address] INR in Platelet poor plasma by Coagulation assayOrdered By: Mick Putnam on 01-21-2024 INR Coag (PPP) [Relative time] 2.5 {INR} Normal [facility] Comment on above: INR Therapeutic Rang e [...] heart valves: 3 - 4.5 PERFORMED BY: [place] [address] PATHOLOGIST PALLET [employer] POSITIONER TERI EDMOND M.D. Performed By: #### B MP, CBC #### [address] Leukocytes [#/volume] correc amparo for nucleated erythrocytes in Blood by Automated counOrdered By: Mick Putnam on 01-21-2024 WBC corrected for nucl RBC Auto (Bld) [#/Vol] 7.3 10*3/uL 4.1-10.5 [facility] Leukocytes [#/volume] in Blo od by Automated countOrdered By: Mick Putnam on 01-21-2024 WBC (Bld) [#/Vol] 7.3 10*3/uL Normal 4.1-10.5 [facility] Comment on above: Performed By: #### P T #### [address] Lymphocytes Auto (Bld) [#/Vo l]Ordered By: Mick Putnam on 01-21-2024 Lymphocytes (Bld) [#/Vol] N/A [facility] Lymphocytes/100 WBC Auto (Bl d)Ordered By: Mick Putnam on 01-21-2024 Lymphocytes/100 WBC (Bld) N/A [facility] Lymphocytes/100 leukocytes i n Blood by Manual countOrdered By: Mick Putnam on 01-21-2024 Lymphocytes/100 WBC (Bld) 20 % Normal 18-42 [facility] Comment on above: Performed By: #### P T #### [place] [address] [place] MCH [Entitic mass] by Automa amparo countOrdered By: Mick Putnam on 01-21-2024 MCH (RBC) [Entitic mass] 30.1 pg Normal 27.5-35.2 [facility] Comment on above: Performed By: #### P T #### [facility] [address] [place] [address] MCHC Auto (RBC) [Mass/Vol]Or dered By: Mick Putnam on 01-21-2024 MCHC (RBC) [Mass/Vol] 33.0 g/dL 32.5-35.6 [facility] MCV [Entitic volume] by Auto mated countOrdered By: Mick Putnam on 01-21-2024 MCV (RBC) [Entitic vol] 91.2 fL Normal 83.5-101 [facility] Comment on above: Performed By: #### P T #### [facility] [address] [place] [address] Manual blood segmented neutr ophils/100 leukocytesOrdered By: Mick Putnam on 01-21-2024 Segmented neutrophils/100 WBC (Bld) 66 % Normal 50-70 [facility] Comment on above: Performed By: #### P T #### [facility] [address] [place] [address] Monocyte distribution width [Entitic volume] in Blood by AutomatedOrdered By: Mick Putnam on 01-21-2024 Monocyte distribution width Auto (Bld) [Entitic vol] 17.72 % 0.00-20.00 [facility] Monocytes Auto (Bld) [#/Vol] Ordered By: Mick Putnam on 01-21-2024 Monocytes (Bld) [#/Vol] N/A [facility] Monocytes/100 WBC Auto (Bld) Ordered By: Mick Putnam on 01-21-2024 Monocytes/100 WBC (Bld) N/A [facility] Monocytes/100 leukocytes in Blood by Manual countOrdered By: Mick Putnam on 01-21-2024 Monocytes/100 WBC (Bld) 10 % Normal 2-11 [facility] Comment on above: Performed By: #### P T #### [facility] [address] Myelocytes/100 WBC Manual cn t (Bld)Ordered By: Mick Putnam on 01-21-2024 Myelocytes/100 WBC (Bld) 3 % High 0-0 [facility] Neutrophils Auto (Bld) [#/Vo l]Ordered By: Mick Putnam on 01-21-2024 Neutrophils (Bld) [#/Vol] N/A [facility] Neutrophils/100 WBC Auto (Bl d)Ordered By: Mick Putnam on 01-21-2024 Neutrophils/100 WBC (Bld) N/A [facility] No Panel InformationOrdered By: Mick Putnam on 01-21-2024 Estimated GFR (CKD-EPI) > 60.0 mL/Min [facility] Creatinine Clearance (Chem 61.06 [facility] Nucleated erythrocytes [Pres ence] in Blood by Automated countOrdered By: Mick Putnam on 01-21-2024 Nucleated RBC Auto Ql (Bld) N/A [facility] Ovalocyte detectionOrdered B y: Mick Putnam on 01-21-2024 Ovalocytes LM Ql (Bld) Slight [facility] Platelet adequacy [Presence] in Blood by Light microscopyOrdered By: Mick Putnam on 01-21-2024 Platelets LM Ql (Bld) Decreased Normal [facility] Platelet mean volume [Entiti c volume] in Blood by Automated countOrdered By: Mick Putnam on 01-21-2024 Platelet mean volume (Bld) [Entitic vol] 8.7 fL Normal 6.6-10.1 [facility] Comment on above: Performed By: #### P T #### [facility] [address] Platelet morphology finding [Identifier] in BloodOrdered By: Mick Putnam on 01-21-2024 Platelet morphology finding Nom (Bld) Normal Normal [facility] Platelets [#/volume] in Bloo d by Automated countOrdered By: Mick Putnam on 01-21-2024 Platelets (Bld) [#/Vol] 141 10*3/uL Low 150-450 [facility] Comment on above: Performed By: #### P T #### [address] Poikilocytosis [Presence] in Blood by Light microscopyOrdered By: Mick Putnam on 01-21-2024 Poikilocytosis LM Ql (Bld) Slight [facility] Potassium [Moles/volume] in Serum or PlasmaOrdered By: Mick Putnam on 01-21-2024 Potassium [Moles/Vol] 4.1 mmol/L Normal 3.5-5.1 [facility] Comment on above: Performed By: #### P T #### [address] Prothrombin time (PT)Ordered By: Mick Putnam on 01-21-2024 PT Coag (PPP) [Time] 28.2 s High 9.0-12.9 [facility] Comment on above: A hematocrit value g reater than 55% may lead to inaccurate results in coagulation testing. Patients having hematocrit values >55% require a special collection tube for coagulation studies. Please contact the laboratory at [phone] for redraw instructions. Result Comment: A he matocrit value greater than 55% may lead to inaccurate results in coagulation testing. Patients having hematocrit values >55% require a special collection tube for coagulation studies. Please contact the laboratory at [phone] for redraw instructions. Performed By: #### B MP, CBC #### [address] RBC morphologyOrdered By: Chito Putnam on 01-21-2024 RBC morphology finding Nom (Bld) N/A [facility] Serum or plasma anion gap de terminationOrdered By: Mick Putnam on 01-21-2024 Anion gap [Moles/Vol] 10.3 mmol/L Normal 6.0-15.0 [facility] Comment on above: Performed By: #### P T #### [address] [place] [address] [facility] Sodium [Moles/volume] in Ser um or PlasmaOrdered By: Mick Putnam on 01-21-2024 Sodium [Moles/Vol] 136 mmol/L Normal 136-145 [facility] Comment on above: Performed By: #### P T #### [place] [address] [place] Troponin I High Sensitivityo n 01-21-2024 Troponin I High Sensitivity 14.8 pg/mL Normal 0.0-20.0 [facility] Comment on above: Result Comment: PERF ORMED BY: [place] [address] PATHOLOGIST [employer]LET [employer] POSITIONER TERI EDMOND M.D. Performed By: #### P T #### [address] Troponin I High Sensitivity 13.9 pg/mL Normal 0.0-20.0 [facility] Comment on above: Result Comment: PERF ORMED BY: [place] [address] PATHOLOGIST PALLET [employer] POSITIONER TERI EDMOND M.D. Performed By: #### P T #### [address] Troponin I.cardiac [Mass/vol ume] in Serum or Plasma by Detection limit <= 0.01 ng/Ordered By: Mick Putnam on 01-21-2024 Troponin I.cardiac DL <= 0.01 ng/mL [Mass/Vol] 14.8 pg/mL 0.0-20.0 [facility] Urea nitrogen [Mass/volume] in Serum or PlasmaOrdered By: Mick Putnam on 01-21-2024 Urea nitrogen [Mass/Vol] 23 mg/dL Normal 7-25 [facility] Comment on above: Performed By: #### P T #### [place] [id number] [facility] XR chest 1V portableon 01-20 XR chest 1V portable [facility] Main [address] [address] XRay Report Signed Patient: Fani Chua MR#: [id number] : 1935 Acct:[id number] Age/Sex: 88 / M ADM Date: 01/21/24 [...] PROCESS. Impression dictated by: Henry Ramirez Jr., D.ORachel01/21/2024 3:58 PM Dictation Location: [facility]-15 Transcribed By: [facility] 01/21/24 1558 Dictated By: Henry Ramirez Jr, DO 01/21/24 1558 Signed By: 01/21/24 1558 Normal [facility] XR knee RT 3V - NOT FOR ER U [facility] 01-06-2024 XR knee RT 3V - NOT FOR ER USE [facility] Bone [facility] [address] [place] [address] XRay Report Signed Patient: Fani Chua MR#: [id number] : 1935 Acct:[id number] Age/Sex: 88 / M ADM Date: 01/06/24 Loc: SOXD Room: Type: REG CLI Attending Dr: Roly Morales DO Copies to: [...] FRACTURE. Impression dictated by: Henry Ramirez Jr., Omar01/06/2024 4:03 PM Dictation Location: [place] [address] Transcribed By: [facility] 01/06/24 1603 Dictated By: Henry Ramirez Jr, DO 01/06/24 1601 Signed By: 01/06/24 1603 Normal [facility] INR in Platelet poor plasma by Coagulation assayOrdered By: Henry Clark on 12-29-2023 INR Coag (PPP) [Relative time] 1.9 {INR} Normal [facility] Comment on above: INR Therapeutic Rang e [...] heart valves: 3 - 4.5 PERFORMED BY: [place] [address] PATHOLOGIST [employer]LET [employer]ONE POSITIONER TERI EDMOND M.D. Performed By: #### P T #### [address] Prothrombin time (PT)Ordered By: Henry Clark on 12-29-2023 PT Coag (PPP) [Time] 21.9 s High 9.0-12.9 [facility] Comment on above: A hematocrit value g reater than 55% may lead to inaccurate results in coagulation testing. Patients having hematocrit values >55% require a special collection tube for coagulation studies. Please contact the laboratory at [phone] for redraw instructions. Result Comment: A he matocrit value greater than 55% may lead to inaccurate results in coagulation testing. Patients having hematocrit values >55% require a special collection tube for coagulation studies. Please contact the laboratory at [phone] for redraw instructions. Performed By: #### P T #### [address] [address] [facility] Prothrombin Time INRon 12-27 INR Coag (PPP) [Relative time] 1.9 {INR} Normal [facility] Comment on above: [...] heart valves: 3 - 4.5 PERFORMED BY: [place] [address] [facility] PALLET STONE POSITIONER TERI EDMOND M.D. Performed By: #### P T #### [place] [id number] [facility] PT Coag (PPP) [Time] 22.0 s High 9.0-12.9 [facility] Comment on above: Result Comment: A he matocrit value greater than 55% may lead to inaccurate results in coagulation testing. Patients having hematocrit values >55% require a special collection tube for coagulation studies. Please contact the laboratory at [phone] for redraw instructions. Performed By: #### P T #### [place] [id number] [place] Prothrombin Time INRon 12-26 INR Coag (PPP) [Relative time] 2.2 {INR} Normal [facility] Comment on above: [...] heart valves: 3 - 4.5 PERFORMED BY: [place] [address] PATHOLOGIST PALLET STONE POSITIONER TERI EDMOND M.D. Performed By: #### B MP, CBC #### [place] [id number] [facility] PT Coag (PPP) [Time] 24.5 s High 9.0-12.9 [facility] Comment on above: Result Comment: A he matocrit value greater than 55% may lead to inaccurate results in coagulation testing. Patients having hematocrit values >55% require a special collection tube for coagulation studies. Please contact the laboratory at [phone] for redraw instructions. 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 This test has not been FDA cleared [...] is terminated or revoked sooner. PERFORMED BY: [address] [address] PATHOLOGIST PALLET STONE POSITIONER TERI EDMOND M.D. Performed By: #### C OVID [address] [facility] #### [facility] [address] [place] [id number] [facility] COVID-19 Positive/NegativeOr dered By: Henry Clark on 12-26-2023 SARS-CoV-2 (COVID-19) N gene SHARRI+probe Ql (Resp) Negative Negative [facility] Comment on above: Testing for SARS-CoV -2 by RT-PCRThis test was developed and its performance characteristics determined by [employer] ([employer]) and validated at the [facility]. This test has not been FDA cleared [...] (COVID-19) RNA SHARRI+probe Ql (Unsp spec) N/A [facility] No Panel InformationOrdered By: Henry Clark on 12-26-2023 N/A [facility] Prothrombin Time INRon 12-25 INR Coag (PPP) [Relative time] 2.2 {INR} Normal [facility] Comment on above: [...] heart valves: 3 - 4.5 PERFORMED BY: [place] [address] PATHOLOGIST PALLET STONE POSITIONER TERI EDMOND M.D. Performed By: #### B MP, CBC #### [place] [id number] [facility] PT Coag (PPP) [Time] 24.9 s High 9.0-12.9 [facility] Comment on above: Order Comment: come back @8:30 pt in therapy Result Comment: A he matocrit value greater than 55% may lead to inaccurate results in coagulation testing. Patients having hematocrit values >55% require a special collection tube for coagulation studies. Please contact the laboratory at [phone] for redraw instructions. Performed By: #### B MP, CBC #### [place] [id number] [place] Prothrombin Time INRon 12-24 INR Coag (PPP) [Relative time] 1.6 {INR} Normal [facility] Comment on above: [...] heart valves: 3 - 4.5 PERFORMED BY: [place] [id number] PATHOLOGIST PALLET [employer]ONE POSITIONER TERI EDMOND M.D. Performed By: #### P T #### [place] [id number] [place] PT Coag (PPP) [Time] 18.0 s High 9.0-12.9 [facility] Comment on above: Result Comment: A he matocrit value greater than 55% may lead to inaccurate results in coagulation testing. Patients having hematocrit values >55% require a special collection tube for coagulation studies. Please contact the laboratory at [phone] for redraw instructions. Performed By: #### P T #### [place] [address] [place] Alanine aminotransferase [En zymatic activity/volume] in Serum or PlasmaOrdered By: Henry Clark on 12-24-2023 ALT [Catalytic activity/Vol] 23 U/L Normal 7-52 [facility] Comment on above: Performed By: #### C OVID [address] [facility] #### [place] [address] [place] Albumin [Mass/volume] in Ser um or Plasma by Bromocresol green (BCG) dye binding methoOrdered By: Henry Clark on 12-24-2023 Albumin BCG dye [Mass/Vol] 3.4 g/dL Low 3.5-5.7 [facility] Alkaline phosphatase [Enzyma tic activity/volume] in Serum or PlasmaOrdered By: Henry Clark on 12-24-2023 ALP [Catalytic activity/Vol] 83 U/L Normal 34-104 [facility] Comment on above: Performed By: #### C OVID 19 [facility] #### [address] Aspartate aminotransferase [ Enzymatic activity/volume] in Serum or PlasmaOrdered By: Henry Clark on 12-24-2023 AST [Catalytic activity/Vol] 25 U/L Normal 13-39 [facility] Comment on above: Performed By: #### C OVID 19 [facility] #### [place] [address] [place] Automated basophil %Ordered By: Henry Clark on 12-24-2023 Basophils/100 WBC (Bld) 0.5 % Normal . [facility] Comment on above: Performed By: #### C OVID 19 [facility] #### [place] [address] [place] Automated basophil countOrde red By: Henry Clark on 12-24-2023 Basophils (Bld) [#/Vol] 0.0 10*3/uL Normal 0.0-0.2 [facility] Comment on above: Result Comment: PERF ORMED BY: [place] [address] PATHOLOGIST PALLET [employer] POSITIONER TERI EDMOND M.D. Performed By: #### C [address] #### [address] Automated blood monocyte cou ntOrdered By: Henry Clark on 12-24-2023 Monocytes (Bld) [#/Vol] 1.0 10*3/uL High 0.0-0.8 [facility] Comment on above: Performed By: #### C [address] #### [address] Automated eosinophil %Ordere d By: Henry Clark on 12-24-2023 Eosinophils/100 WBC (Bld) 2.6 % Normal . [facility] Comment on above: Performed By: #### C [address] #### [address] Automated eosinophil countOr dered By: Henry Clark on 12-24-2023 Eosinophils (Bld) [#/Vol] 0.2 10*3/uL Normal 0.0-0.45 [facility] Comment on above: Performed By: #### C [address] #### [address] Automated monocyte %Ordered By: Henry Clark on 12-24-2023 Monocytes/100 WBC (Bld) 14.8 % Normal . [facility] Comment on above: Performed By: #### C [address] #### [address] Automated neutrophil %Ordere d By: Henry Clark on 12-24-2023 Neutrophils/100 WBC (Bld) 66.9 % Normal . [facility] Comment on above: Performed By: #### C [address] #### [address] Bilirubin.total [Mass/volume ] in Serum or PlasmaOrdered By: Henry Clark on 12-24-2023 Bilirubin [Mass/Vol] 1.0 mg/dL Normal 0.3-1.0 [facility] Comment on above: Performed By: #### C [address] #### [address] Calcium [Mass/volume] in Ser um or PlasmaOrdered By: Henry Clark on 12-24-2023 Calcium [Mass/Vol] 8.5 mg/dL Low 8.6-10.3 [facility] Comment on above: Performed By: #### C [address] #### [address] Carbon dioxide, total [Moles /volume] in Serum or PlasmaOrdered By: Henry Clark on 12-24-2023 CO2 [Moles/Vol] 25.3 mmol/L Normal 21.0-31.0 [facility] Comment on above: Performed By: #### C [address] #### [address] Chloride [Moles/volume] in S aime or PlasmaOrdered By: Henry Clark on 12-24-2023 Chloride [Moles/Vol] 102 mmol/L Normal 98-107 [facility] Comment on above: Performed By: #### C [address] #### [address] Complete Blood Count Auto Di ffon 12-24-2023 Mean Corpuscular HGB Conc 34.0 g/dL Normal 32.5-35.6 [facility] Comment on above: Performed By: #### C [address] #### [address] NRBC% 0.2 /100{WBC} Normal 0-0.5 [facility] Comment on above: Performed By: #### C [address] #### [address] Comprehensive Metabolic Pane rui 12-24-2023 Albumin [Mass/Vol] 3.4 g/dL Low 3.5-5.7 [facility] Comment on above: Performed By: #### C [address] #### [facility] [address] Creatinine Clr Calc Pharmacy 59.23 Normal [facility] Comment on above: Performed By: #### C [address] #### [facility] [address] GFR/1.73 sq M.predicted MDRD (S/P/Bld) [Vol rate/Area] mL/min/{1.73_m2} Normal [facility] Comment on above: Performed By: #### C [address] #### [address] Creatinine [Mass/volume] in Serum or PlasmaOrdered By: Henry Clark on 12-24-2023 Creatinine [Mass/Vol] 0.87 mg/dL Normal 0.70-1.30 [facility] Comment on above: Performed By: #### C [address] #### [address] Erythrocyte distribution wid th [Ratio] by Automated countOrdered By: Henry Clark on 12-24-2023 Erythrocyte distribution width (RBC) [Ratio] 15.1 % High 12.0-14.8 [facility] Comment on above: Performed By: #### C [address] #### [address] Erythrocytes [#/volume] in B lood by Automated countOrdered By: Henry Clark on 12-24-2023 RBC (Bld) [#/Vol] 4.19 10*6/uL Normal 3.90-5.60 [facility] Comment on above: Performed By: #### C [address] #### [address] Glucose [Mass/volume] in Ser um or PlasmaOrdered By: Henry Clark on 12-24-2023 Glucose [Mass/Vol] 94 mg/dL Normal 70-100 [facility] Comment on above: ADA recommended refe rence rangeRandom Glucose Reference Range is dependent on time and content of last meal. Glucose of more than 200 mg/dL in a nonstressed, ambulatory subject supports the diagnosis of Diabetes Mellitus. Result Comment: [facility] Glucose Reference Range is dependent on time and content of last meal. Glucose of more than 200 mg/dL in a nonstressed, ambulatory subject supports the diagnosis of Diabetes Mellitus. ADA recommended reference range Performed By: #### C OVID 19 [facility] #### [address] Hematocrit [Volume Fraction] of Blood by Automated countOrdered By: Henry Clark on 12-24-2023 Hematocrit (Bld) [Volume fraction] 37.2 % Low 38.8-50.0 [facility] Comment on above: Performed By: #### C OVID 19 [facility] #### [address] Hemoglobin [Mass/volume] in BloodOrdered By: Henry Clark on 12-24-2023 Hemoglobin (Bld) [Mass/Vol] 12.7 g/dL Low 13.0-17.0 [facility] Comment on above: Performed By: #### C OVID 19 [facility] #### [address] Leukocytes [#/volume] correc amparo for nucleated erythrocytes in Blood by Automated counOrdered By: Henry Clark on 12-24-2023 WBC corrected for nucl RBC Auto (Bld) [#/Vol] 6.5 10*3/uL 4.1-10.5 [facility] Leukocytes [#/volume] in Blo od by Automated countOrdered By: Henry Clark on 12-24-2023 WBC (Bld) [#/Vol] 6.5 10*3/uL Normal 4.1-10.5 [facility] Comment on above: Performed By: #### C OVID 19 [facility] #### [place] [address] [place] Lymphocytes [#/volume] in Bl ood by Automated countOrdered By: Henry Clark on 12-24-2023 Lymphocytes (Bld) [#/Vol] 1.0 10*3/uL Normal 1.00-4.8 [facility] Comment on above: Performed By: #### C OVID 19 [facility] #### [address] Lymphocytes/100 leukocytes i n Blood by Automated countOrdered By: Henry Clark on 12-24-2023 Lymphocytes/100 WBC (Bld) 15.2 % Normal . [facility] Comment on above: Performed By: #### C [address] #### [address] MCH [Entitic mass] by Automa amparo countOrdered By: Henry Clark on 12-24-2023 MCH (RBC) [Entitic mass] 30.2 pg Normal 27.5-35.2 [facility] Comment on above: Performed By: #### C [address] #### [address] MCHC Auto (RBC) [Mass/Vol]Or dered By: Henry Clark on 12-24-2023 MCHC (RBC) [Mass/Vol] 34.0 g/dL 32.5-35.6 [facility] MCV [Entitic volume] by Auto mated countOrdered By: Henry Clark on 12-24-2023 MCV (RBC) [Entitic vol] 88.8 fL Normal 83.5-101 [facility] Comment on above: Performed By: #### C [address] #### [address] Neutrophils [#/volume] in Bl ood by Automated countOrdered By: Henry Clark on 12-24-2023 Neutrophils (Bld) [#/Vol] 4.4 10*3/uL Normal 1.8-7.7 [facility] Comment on above: Performed By: #### C [address] #### [address] No Panel InformationOrdered By: Henry Clark on 12-24-2023 Estimated GFR (CKD-EPI) > 60.0 mL/Min [facility] Creatinine Clearance (Chem 59.23 [facility] > 60.0 mL/Min [facility] 59.23 [facility] Nucleated erythrocytes [Pres ence] in Blood by Automated countOrdered By: Henry Clark on 12-24-2023 Nucleated RBC Auto Ql (Bld) 0.2 /100{WBC} 0-0.5 [facility] Platelet mean volume [Entiti c volume] in Blood by Automated countOrdered By: Henry Clark on 12-24-2023 Platelet mean volume (Bld) [Entitic vol] 8.5 fL Normal 6.6-10.1 [facility] Comment on above: Performed By: #### C OVID 19 [facility] #### [facility] [address] [place] [address] [place] Platelets [#/volume] in Bloo d by Automated countOrdered By: Henry Clark on 12-24-2023 Platelets (Bld) [#/Vol] 132 10*3/uL Low 150-450 [facility] Comment on above: Performed By: #### C OVID 19 [facility] #### [facility] [address] [place] [address] [place] Potassium [Moles/volume] in Serum or PlasmaOrdered By: Henry Clark on 12-24-2023 Potassium [Moles/Vol] 4.4 mmol/L Normal 3.5-5.1 [facility] Comment on above: Performed By: #### C [place] [address] [facility] #### [place] [address] [place] Prealbumin [Mass/volume] in Serum or PlasmaOrdered By: Henry Clark on 12-24-2023 Prealbumin [Mass/Vol] 10.2 mg/dL Low 17.0-34.0 [facility] Comment on above: Result Comment: PERF ORMED BY: [place] [address] PATHOLOGIST PALLET STONE POSITIONER TERI EDMOND M.D. Performed By: #### C OVID 19 [facility] #### [place] [id number] [place] Protein [Mass/volume] in Ser um or PlasmaOrdered By: Henry Clark on 12-24-2023 Protein [Mass/Vol] 6.1 g/dL Low 6.4-8.9 [facility] Comment on above: Performed By: #### C [address] #### [address] Prothrombin Time INRon 12-23 INR Coag (PPP) [Relative time] 1.3 {INR} Normal [facility] Comment on above: [...] heart valves: 3 - 4.5 PERFORMED BY: [place] [address] PATHOLOGIST PALLET STONE POSITIONER TERI EDMOND M.D. Performed By: #### C [address] #### [address] PT Coag (PPP) [Time] 14.7 s High 9.0-12.9 [facility] Comment on above: Result Comment: A he matocrit value greater than 55% may lead to inaccurate results in coagulation testing. Patients having hematocrit values >55% require a special collection tube for coagulation studies. Please contact the laboratory at [phone] for redraw instructions. Performed By: #### C [address] #### [address] Serum globulin measurement b y calculation (mass/volume)Ordered By: Henry Clark on 12-24-2023 Globulin (S) [Mass/Vol] 2.7 g/dL Normal [facility] Comment on above: Performed By: #### C [address] #### [address] Serum or plasma albumin/glob ulin mass ratioOrdered By: Henry Clark on 12-24-2023 Albumin/Globulin [Mass ratio] 1.3 {ratio} [facility] Comment on above: Performed By: #### C [address] #### [facility] [address] Serum or plasma anion gap de terminationOrdered By: Henry Clark on 12-24-2023 Anion gap [Moles/Vol] 14.1 mmol/L Normal 6.0-15.0 [facility] Comment on above: Performed By: #### C [address] #### [facility] [address] [place] [address] [place] Sodium [Moles/volume] in Ser um or PlasmaOrdered By: Henry Clark on 12-24-2023 Sodium [Moles/Vol] 137 mmol/L Normal 136-145 [facility] Comment on above: Performed By: #### C [address] #### [address] Urea nitrogen [Mass/volume] in Serum or PlasmaOrdered By: Henry Clark on 12-24-2023 Urea nitrogen [Mass/Vol] 30 mg/dL High 7-25 [facility] Comment on above: Performed By: #### C [address] #### [address] INR in Platelet poor plasma by Coagulation assayOrdered By: Hilario Skelton on 12-23-2023 INR Coag (PPP) [Relative time] 1.3 {INR} Normal [facility] Comment on above: INR Therapeutic Rang e [...] heart valves: 3 - 4.5 PERFORMED BY: [place] [address] PATHOLOGIST PALLET STONE POSITIONER TERI EDMOND M.D. Performed By: #### P T #### [address] Prothrombin time (PT)Ordered By: Hilario Skelton on 12-23-2023 PT Coag (PPP) [Time] 15.2 s High 9.0-12.9 [facility] Comment on above: A hematocrit value g reater than 55% may lead to inaccurate results in coagulation testing. Patients having hematocrit values >55% require a special collection tube for coagulation studies. Please contact the laboratory at [phone] for redraw instructions. Result Comment: A he matocrit value greater than 55% may lead to inaccurate results in coagulation testing. Patients having hematocrit values >55% require a special collection tube for coagulation studies. Please contact the laboratory at [phone] for redraw instructions. Performed By: #### P T #### [address] Automated basophil %Ordered By: Ashley Merritt on 12-22-2023 Basophils/100 WBC (Bld) 0.5 % Normal . [facility] Comment on above: Performed By: #### B MP, CBC #### [address] Automated basophil countOrde red By: Ashley Merritt on 12-22-2023 Basophils (Bld) [#/Vol] 0.0 10*3/uL Normal 0.0-0.2 [facility] Comment on above: Result Comment: PERF ORMED BY: [place] [address] PATHOLOGIST PALLET STONE POSITIONER TERI EDMOND M.D. Performed By: #### B MP, CBC #### [address] Automated blood monocyte cou ntOrdered By: Ashley Merritt on 12-22-2023 Monocytes (Bld) [#/Vol] 1.3 10*3/uL High 0.0-0.8 [facility] Comment on above: Performed By: #### B MP, CBC #### [address] Automated eosinophil %Ordere d By: Ashley Merritt on 12-22-2023 Eosinophils/100 WBC (Bld) 0.8 % Normal . [facility] Comment on above: Performed By: #### B MP, CBC #### [address] Automated eosinophil countOr dered By: Ashley Merritt on 12-22-2023 Eosinophils (Bld) [#/Vol] 0.1 10*3/uL Normal 0.0-0.45 [facility] Comment on above: Performed By: #### B MP, CBC #### [address] Automated monocyte %Ordered By: Ashley Merritt on 12-22-2023 Monocytes/100 WBC (Bld) 14.6 % Normal . [facility] Comment on above: Performed By: #### B MP, CBC #### [address] Automated neutrophil %Ordere d By: Ashley Merritt on 12-22-2023 Neutrophils/100 WBC (Bld) 69.1 % Normal . [facility] Comment on above: Performed By: #### B MP, CBC #### [address] Basic Metabolic Panelon 07-0 Creatinine Clr Calc Pharmacy 58.48 Normal [facility] Comment on above: Result Comment: PERF ORMED BY: [place] [address] PATHOLOGIST PALLET [employer] POSITIONER TERI EDMOND M.D. Performed By: #### B MP, CBC #### [address] GFR/1.73 sq M.predicted MDRD (S/P/Bld) [Vol rate/Area] mL/min/{1.73_m2} Normal [facility] Comment on above: Performed By: #### B MP, CBC #### [place] [address] [place] Calcium [Mass/volume] in Ser um or PlasmaOrdered By: Ashley Merritt on 12-22-2023 Calcium [Mass/Vol] 9.1 mg/dL Normal 8.6-10.3 [facility] Comment on above: Performed By: #### B MP, CBC #### [address] Carbon dioxide, total [Moles /volume] in Serum or PlasmaOrdered By: Ashley Merritt on 12-22-2023 CO2 [Moles/Vol] 26.6 mmol/L Normal 21.0-31.0 [facility] Comment on above: Performed By: #### B MP, CBC #### [place] [address] [place] Chloride [Moles/volume] in S aime or PlasmaOrdered By: Ashley Merritt on 12-22-2023 Chloride [Moles/Vol] 102 mmol/L Normal 98-107 [facility] Comment on above: Performed By: #### B MP, CBC #### [address] Complete Blood Count Auto Di ffon 12-22-2023 Mean Corpuscular HGB Conc 32.9 g/dL Normal 32.5-35.6 [facility] Comment on above: Performed By: #### B MP, CBC #### [address] NRBC% 0.1 /100{WBC} Normal 0-0.5 [facility] Comment on above: Performed By: #### B MP, CBC #### [address] Creatinine [Mass/volume] in Serum or PlasmaOrdered By: Ashley Merritt on 12-22-2023 Creatinine [Mass/Vol] 0.89 mg/dL Normal 0.70-1.30 [facility] Comment on above: Performed By: #### B MP, CBC #### [facility] [address] Erythrocyte distribution wid th [Ratio] by Automated countOrdered By: Ashley Merritt on 12-22-2023 Erythrocyte distribution width (RBC) [Ratio] 15.5 % High 12.0-14.8 [facility] Comment on above: Performed By: #### B MP, CBC #### [facility] [facility] [address] Erythrocytes [#/volume] in B lood by Automated countOrdered By: Ashley Merritt on 12-22-2023 RBC (Bld) [#/Vol] 4.63 10*6/uL Normal 3.90-5.60 [facility] Comment on above: Performed By: #### B MP, CBC #### [facility] [address] Glucose [Mass/volume] in Ser um or PlasmaOrdered By: Ashley Merritt on 12-22-2023 Glucose [Mass/Vol] 153 mg/dL High 70-100 [facility] Comment on above: ADA recommended refe rence rangeRandom Glucose Reference Range is dependent on time and content of last meal. Glucose of more than 200 mg/dL in a nonstressed, ambulatory subject supports the diagnosis of Diabetes Mellitus. Result Comment: [place] Glucose Reference Range is dependent on time and content of last meal. Glucose of more than 200 mg/dL in a nonstressed, ambulatory subject supports the diagnosis of Diabetes Mellitus. ADA recommended reference range Performed By: #### B MP, CBC #### [facility] [address] Hematocrit [Volume Fraction] of Blood by Automated countOrdered By: Ashley Merritt on 12-22-2023 Hematocrit (Bld) [Volume fraction] 41.3 % Normal 38.8-50.0 [facility] Comment on above: Performed By: #### B MP, CBC #### [facility] [address] [place] [address] [place] Hemoglobin [Mass/volume] in BloodOrdered By: Ashley Merritt on 12-22-2023 Hemoglobin (Bld) [Mass/Vol] 13.6 g/dL Normal 13.0-17.0 [facility] Comment on above: Performed By: #### B MP, CBC #### [facility] [address] Leukocytes [#/volume] correc amparo for nucleated erythrocytes in Blood by Automated counOrdered By: Ashley Merritt on 12-22-2023 WBC corrected for nucl RBC Auto (Bld) [#/Vol] 9.0 10*3/uL 4.1-10.5 [facility] Leukocytes [#/volume] in Blo od by Automated countOrdered By: Ashley Merritt on 12-22-2023 WBC (Bld) [#/Vol] 9.0 10*3/uL Normal 4.1-10.5 [facility] Comment on above: Performed By: #### B MP, CBC #### [facility] [address] Lymphocytes [#/volume] in Bl ood by Automated countOrdered By: Ashley Merritt on 12-22-2023 Lymphocytes (Bld) [#/Vol] 1.4 10*3/uL Normal 1.00-4.8 [facility] Comment on above: Performed By: #### B MP, CBC #### [place] [address] [place] Lymphocytes/100 leukocytes i n Blood by Automated countOrdered By: Ashley Merritt on 12-22-2023 Lymphocytes/100 WBC (Bld) 15.0 % Normal . [facility] Comment on above: Performed By: #### B MP, CBC #### [facility] [address] [place] [address] [place] MCH [Entitic mass] by Automa amparo countOrdered By: Ashley Merritt on 12-22-2023 MCH (RBC) [Entitic mass] 29.3 pg Normal 27.5-35.2 [facility] Comment on above: Performed By: #### B MP, CBC #### [facility] [address] MCHC Auto (RBC) [Mass/Vol]Or dered By: Ashley Merritt on 12-22-2023 MCHC (RBC) [Mass/Vol] 32.9 g/dL 32.5-35.6 [facility] MCV [Entitic volume] by Auto mated countOrdered By: Ashley Merritt on 12-22-2023 MCV (RBC) [Entitic vol] 89.2 fL Normal 83.5-101 [facility] Comment on above: Performed By: #### B MP, CBC #### [facility] [address] [place] [address] Neutrophils [#/volume] in Bl ood by Automated countOrdered By: Ashley Merritt on 12-22-2023 Neutrophils (Bld) [#/Vol] 6.2 10*3/uL Normal 1.8-7.7 [facility] Comment on above: Performed By: #### B MP, CBC #### [facility] [address] No Panel InformationOrdered By: Ashley Merritt on 12-22-2023 Estimated GFR (CKD-EPI) > 60.0 mL/Min [facility] Creatinine Clearance (Chem 58.48 [facility] > 60.0 mL/Min [facility] 58.48 [facility] Nucleated erythrocytes [Pres ence] in Blood by Automated countOrdered By: Ashley Merritt on 12-22-2023 Nucleated RBC Auto Ql (Bld) 0.1 /100{WBC} 0-0.5 [facility] Platelet mean volume [Entiti c volume] in Blood by Automated countOrdered By: Ashley Merritt on 12-22-2023 Platelet mean volume (Bld) [Entitic vol] 8.4 fL Normal 6.6-10.1 [facility] Comment on above: Performed By: #### B MP, CBC #### [facility] [address] [place] [address] Platelets [#/volume] in Bloo d by Automated countOrdered By: Ashley Merritt on 12-22-2023 Platelets (Bld) [#/Vol] 145 10*3/uL Low 150-450 [facility] Comment on above: Performed By: #### B MP, CBC #### [address] Potassium [Moles/volume] in Serum or PlasmaOrdered By: Ashley Merritt on 12-22-2023 Potassium [Moles/Vol] 3.8 mmol/L Normal 3.5-5.1 [facility] Comment on above: Performed By: #### B MP, CBC #### [address] Prothrombin Time INRon 12-21 INR Coag (PPP) [Relative time] 1.4 {INR} Normal [facility] Comment on above: [...] heart valves: 3 - 4.5 PERFORMED BY: [place] [address] PATHOLOGIST [employer]LET [employer] POSITIONER TERI EDMOND M.D. Performed By: #### B MP, CBC #### [address] PT Coag (PPP) [Time] 16.3 s High 9.0-12.9 [facility] Comment on above: Result Comment: A he matocrit value greater than 55% may lead to inaccurate results in coagulation testing. Patients having hematocrit values >55% require a special collection tube for coagulation studies. Please contact the laboratory at [phone] for redraw instructions. Performed By: #### B MP, CBC #### [address] Serum or plasma anion gap de terminationOrdered By: Ashley Merritt on 12-22-2023 Anion gap [Moles/Vol] 12.2 mmol/L Normal 6.0-15.0 [facility] Comment on above: Performed By: #### B MP, CBC #### [facility] [address] [place] [address] [place] Sodium [Moles/volume] in Ser um or PlasmaOrdered By: Ashley Merritt on 12-22-2023 Sodium [Moles/Vol] 137 mmol/L Normal 136-145 [facility] Comment on above: Performed By: #### B MP, CBC #### [facility] [address] Urea nitrogen [Mass/volume] in Serum or PlasmaOrdered By: Ashley Merritt on 12-22-2023 Urea nitrogen [Mass/Vol] 25 mg/dL Normal 7-25 [facility] Comment on above: Performed By: #### B MP, CBC #### [address] XR knee RT 2Von 12-22-2023 XR knee RT 2V [facility] [place] [address] [place] [address] XRay Report Signed Patient: Fani Chua MR#: [id number] : 1935 Acct:[id number] Age/Sex: 88 / M ADM Date: 12/21/23 Loc: Room: [address] [place] [address] Type: ADM INOo Attending Dr: Ashley Merritt [...] Cyn Llamas M.D.12/22/2023 11:39 AM Dictation Location: [place] [address] Transcribed By: [facility] 12/22/23 1139 Dictated By: Cyn Llamas MD 12/22/23 1135 Signed By: 12/22/23 1139 Normal [facility] Activated partial thrombopla stin time (aPTT) in platelet poor plasma by coagulation aOrdered By: Rubio Crooks on 12-20-2023 aPTT Coag (PPP) [Time] 36.5 s 25.1-36.5 [facility] Comment on above: A hematocrit value g reater than 55% may lead to inaccurate results in coagulation testing. Patients having hematocrit values >55% require a special collection tube for coagulation studies. Please contact the laboratory at [phone] for redraw instructions. Alanine aminotransferase [En zymatic activity/volume] in Serum or PlasmaOrdered By: Rubio Crooks on 12-20-2023 ALT [Catalytic activity/Vol] 41 U/L Normal 7-52 [facility] Comment on above: Performed By: #### P P, MG, CMP, DIFF CBC #### [facility] [address] [place] [address] [place] Albumin [Mass/volume] in Ser um or Plasma by Bromocresol green (BCG) dye binding methoOrdered By: Rubio Crooks on 12-20-2023 Albumin BCG dye [Mass/Vol] 4.2 g/dL 3.5-5.7 [facility] Alkaline phosphatase [Enzyma tic activity/volume] in Serum or PlasmaOrdered By: Rubio Crooks on 12-20-2023 ALP [Catalytic activity/Vol] 87 U/L Normal 34-104 [facility] Comment on above: Performed By: #### P P, MG, CMP, DIFF CBC #### [facility] [address] [place] [id number] [place] Anisocytosis [Presence] in B lood by Light microscopyOrdered By: Rubio Crooks on 12-20-2023 Anisocytosis Ql (Bld) Slight Normal [facility] Comment on above: Performed By: #### P P, MG, CMP, DIFF CBC ####[facility] [id number] [place] [address] [place] Aspartate aminotransferase [ Enzymatic activity/volume] in Serum or PlasmaOrdered By: Rubio Crooks on 12-20-2023 AST [Catalytic activity/Vol] 38 U/L Normal 13-39 [facility] Comment on above: Performed By: #### P P, MG, CMP, DIFF CBC #### [facility] [address] [place] [address] [place] Bacteria [Presence] in Urine by AutomatedOrdered By: Rubio Crooks on 12-20-2023 Bacteria Auto Ql (U) None seen [HPF] None Seen [facility] Basophils Auto (Bld) [#/Vol] Ordered By: Rubio Crooks on 12-20-2023 Basophils (Bld) [#/Vol] N/A [facility] Basophils/100 WBC Auto (Bld) Ordered By: Rubio Crooks on 12-20-2023 Basophils/100 WBC (Bld) N/A [facility] Bilirubin Test strip Ql (U)O rdered By: Rubio Crooks on 12-20-2023 Bilirubin Ql (U) Negative Negative [facility] Bilirubin.total [Mass/volume ] in Serum or PlasmaOrdered By: Rubio Crooks on 12-20-2023 Bilirubin [Mass/Vol] 0.9 mg/dL Normal 0.3-1.0 [facility] Comment on above: Performed By: #### P P, MG, CMP, DIFF CBC #### [facility] [address] [place] [address] [place] Jihan cells [Presence] in Blo od by Light microscopyOrdered By: Rubio Crooks on 12-20-2023 Jihan cells LM Ql (Bld) Slight Fi [facility] CT abdomen pelvis w conon CT abdomen pelvis w con [facility] [place] [address] [place] [address] CT Scan Report Signed Patient: Fani Chua MR#: [id number] : 1935 Acct:[id number] Age/Sex: 88 / M ADM Date: 12/20/23 Loc: 4N Room: 5C7594-4 Type: ADM INOo Attending Dr: Betty Buchanan MD Copies to: MD Rubio Owen Jr, MD Ordering Provider: Rubio Crooks Jr, MD Date of Service: 12/20/23 CT/CT chest w con: fall, R chest/rib pain ([id number]) CT/CT abdomen pelvis w con: fall, R [...] Cyn Llamas M.D.12/20/2023 10:43 AM Dictation Location: [place] [address] Transcribed By: [facility] 12/20/23 1043 Dictated By: Cyn Llamas MD 12/20/23 1033 Signed By: 12/20/23 1043 Normal [facility] CT cervical spine wo [facility] 0 12-20-2023 CT cervical spine wo [facility] [place] [address] [place] [address] CT Scan Report Signed Patient: Fani Chua MR#: [id number] : 1935 Acct:[id number] Age/Sex: 88 / M ADM Date: 12/20/23 Loc: Room: 8R7228-4 Type: ADM INOo Attending Dr: Betty Buchanan MD Copies to: MD Rubio Owen Jr, MD Ordering Provider: Rubio Crooks Jr, MD Date of Service: 12/20/23 CT/CT head/brain wo con: fall, head injury, warfarin ([id number]) CT/CT cervical spine wo con: fall, head [...] Cyn Llamas M.D.12/20/2023 10:28 AM Dictation Location: [place] [address] Transcribed By: [facility] 12/20/23 1028 Dictated By: Cyn Llamas MD 12/20/23 1021 Signed By: 12/20/23 1028 Normal [facility] CT knee RT wo jaelizette 12-20-19 CT knee RT wo con [facility] [place] [address] CT Scan Report Signed Patient: Fani Chua#: [id number] : 1935 Acct:[id number] Age/Sex: 88 / M ADM Date: 12/20/23 Loc: 4N Room: 0Q0956-2 Type: ADM INOo Attending Dr: Betty Buchanan [...] Cyn Llamas M.D.12/20/2023 10:48 AM Dictation Location: [place] [address] Transcribed By: [facility] 12/20/23 1048 Dictated By: Cyn Llamas MD 12/20/23 1043 Signed By: 12/20/23 1048 Normal [facility] Calcium [Mass/volume] in Ser um or PlasmaOrdered By: Rubio Crooks on 12-20-2023 Calcium [Mass/Vol] 9.8 mg/dL Normal 8.6-10.3 [facility] Comment on above: Performed By: #### P P, MG, CMP, DIFF CBC #### [address] Carbon dioxide, total [Moles /volume] in Serum or PlasmaOrdered By: Rubio Crooks on 12-20-2023 CO2 [Moles/Vol] 27.0 mmol/L Normal 21.0-31.0 [facility] Comment on above: Performed By: #### P P, MG, CMP, DIFF CBC #### [address] Chloride [Moles/volume] in S aime or PlasmaOrdered By: Rubio Crooks on 12-20-2023 Chloride [Moles/Vol] 106 mmol/L Normal 98-107 [facility] Comment on above: Performed By: #### P P, MG, CMP, DIFF CBC #### [address] Coagulation Profileon 2023 aPTT Coag (Bld) [Time] 36.5 s Normal 25.1-36.5 [facility] Comment on above: Result Comment: A he matocrit value greater than 55% may lead to inaccurate results in coagulation testing. Patients having hematocrit values >55% require a special collection tube for coagulation studies. Please contact the laboratory at [phone] for redraw instructions. PERFORMED BY: [place] [address] PATHOLOGIST PALLET [employer]ONE POSITIONER TERI EDMOND M.D. Performed By: #### P P, MG, CMP, DIFF CBC #### [address] Color of Urine by AutoOrdere d By: Rubio Crooks on 12-20-2023 Color (U) Light-yellow Normal Yellow [facility] Comment on above: Order Comment: Name Collection Type:: Clean-Voided Midstream Performed By: #### B MP, CBC #### [address] Comprehensive Metabolic Pane rui 12-20-2023 Albumin [Mass/Vol] 4.2 g/dL Normal 3.5-5.7 [facility] Comment on above: Performed By: #### P P, MG, CMP, DIFF CBC #### [facility] [address] [place] [address] Creatinine Clr Calc Pharmacy 51.02 Normal [facility] Comment on above: Result Comment: PERF ORMED BY: [place] [address] PATHOLOGIST PALLET [employer] POSITIONER TERI EDMOND M.D. Performed By: #### P P, MG, CMP, DIFF CBC #### [address] GFR/1.73 sq M.predicted MDRD (S/P/Bld) [Vol rate/Area] mL/min/{1.73_m2} Normal [facility] Comment on above: Performed By: #### P P, MG, CMP, DIFF CBC #### [address] Creatinine [Mass/volume] in Serum or PlasmaOrdered By: Rubio Crooks on 12-20-2023 Creatinine [Mass/Vol] 1.02 mg/dL Normal 0.70-1.30 [facility] Comment on above: Performed By: #### P P, MG, CMP, DIFF CBC #### [address] Diff and CBCon 12-20-2023 Crenated RBC Slight Normal [facility] Comment on above: Performed By: #### P P, MG, CMP, DIFF CBC ####[address] Mean Corpuscular HGB Conc 33.4 g/dL Normal 32.5-35.6 [facility] Comment on above: Performed By: #### P P, MG, CMP, DIFF CBC ####[facility] [id number] [place] [address] Monocytes/100 WBC (Bld) 17.52 % Normal 0.00-20.00 [facility] Comment on above: Performed By: #### P P, MG, CMP, DIFF CBC ####[address] Myelocytes 1 % High 0-0 [facility] Comment on above: Performed By: #### P P, MG, CMP, DIFF CBC ####[address] [address] [facility] Ovalocytes Slight Normal [facility] Comment on above: Performed By: #### P P, MG, CMP, DIFF CBC ####[place] [id number] [facility] Platelet Estimate Normal Normal Normal The [facility] Comment on above: Performed By: #### P P, MG, CMP, DIFF CBC ####[address] Platelet Morphology Normal Normal Normal [facility] Comment on above: Result Comment: PERF ORMED BY: [facility] [address] [facility] [address] [address] PATHOLOGIST PALLET [employer]ONE POSITIONER TERI EDMOND M.D. Performed By: #### P P, MG, CMP, DIFF CBC ####[address] Poikilocytosis Slight Normal [facility] Comment on above: Performed By: #### P P, MG, CMP, DIFF CBC ####[place] [id number] [facility] Polychromasia Slight Normal [facility] Comment on above: Performed By: #### P P, MG, CMP, DIFF CBC ####[place] [id number] [facility] Dipstick and Microscopicon 0 12-20-2023 Bacteria,Urine None Seen Normal None Seen [facility] Comment on above: Order Comment: Name Collection Type:: Clean-Voided Midstream Performed By: #### B MP, CBC #### [address] Bilirubin,Urine Negative Normal Negative [facility] Comment on above: Order Comment: Name Collection Type:: Clean-Voided Midstream Performed By: #### B MP, CBC #### [place] [address] [place] Glucose Ql (U) Normal Normal Normal [facility] Comment on above: Order Comment: Name Collection Type:: Clean-Voided Midstream Performed By: #### B MP, CBC #### [place] [address] [place] Hyaline Casts,Urine None Normal 0-8 [facility] Comment on above: Order Comment: Name Collection Type:: Clean-Voided Midstream Result Comment: PERF ORMED BY: [place] [address] PATHOLOGIST PALLET STONE POSITIONER TERI EDMOND M.D. Performed By: #### B MP, CBC #### [address] Nitrite,Urine Negative Normal Negative [facility] Comment on above: Order Comment: Name Collection Type:: Clean-Voided Midstream Performed By: #### B MP, CBC #### [place] [address] [place] Occult Blood,Urine Negative Normal Negative [facility] Comment on above: Order Comment: Name Collection Type:: Clean-Voided Midstream Result Comment: PERF ORMED BY: [place] [address] PATHOLOGIST PALLET STONE POSITIONER TERI EDMOND M.D. Performed By: #### B MP, CBC #### [place] [address] [place] Protein,Urine Trace High Negative [facility] Comment on above: Order Comment: Name Collection Type:: Clean-Voided Midstream Performed By: #### B MP, CBC #### [place] [address] [place] RBC,Urine 1-2 Normal 0-4 [facility] Comment on above: Order Comment: Name Collection Type:: Clean-Voided Midstream Performed By: #### B MP, CBC #### [address] [place] [address] [place] Specificy [place],Urine 1.019 Normal 1.001-1.03 0 [facility] Comment on above: Order Comment: Name Collection Type:: Clean-Voided Midstream Performed By: #### B MP, CBC #### [facility] [address] Urobilinogen,Urine Normal Normal Normal [facility] Comment on above: Order Comment: Name Collection Type:: Clean-Voided Midstream Performed By: #### B MP, CBC #### [facility] [address] WBC,Urine 1-2 Normal 0-4 [facility] Comment on above: Order Comment: Name Collection Type:: Clean-Voided Midstream Performed By: #### B MP, CBC #### [address] Eosinophils Auto (Bld) [#/Vo l]Ordered By: Rubio Crooks on 12-20-2023 Eosinophils (Bld) [#/Vol] N/A [facility] Eosinophils/100 WBC Auto (Bl d)Ordered By: Rubio Crooks on 12-20-2023 Eosinophils/100 WBC (Bld) N/A [facility] Eosinophils/100 leukocytes i n Blood by Manual countOrdered By: Rubio Crooks on 12-20-2023 Eosinophils/100 WBC (Bld) 1 % Normal 1-3 [facility] Comment on above: Performed By: #### P P, MG, CMP, DIFF CBC ####[facility] [id number] Epithelial cells.squamous [# /area] in Urine sediment by Automated countOrdered By: Rubio Crooks on 12-20-2023 Epithelial cells.squamous Auto (Urine sed) [#/Area] N/A [facility] Erythrocyte distribution wid th [Ratio] by Automated countOrdered By: Rubio Crooks on 12-20-2023 Erythrocyte distribution width (RBC) [Ratio] 15.6 % High 12.0-14.8 [facility] Comment on above: Performed By: #### P P, MG, CMP, DIFF CBC ####[facility] [address] Erythrocytes [#/area] in Uri ne sediment by Automated countOrdered By: Rubio Crooks on 12-20-2023 RBC Auto (Urine sed) [#/Area] 1-2 [HPF] 0-4 [facility] Erythrocytes [#/volume] in B lood by Automated countOrdered By: Rubio Crooks on 12-20-2023 RBC (Bld) [#/Vol] 4.29 10*6/uL Normal 3.90-5.60 [facility] Comment on above: Performed By: #### P P, MG, CMP, DIFF CBC ####[facility] [address] Glucose [Mass/volume] in Ser um or PlasmaOrdered By: Rubio Crooks on 12-20-2023 Glucose [Mass/Vol] 112 mg/dL High 70-100 [facility] Comment on above: ADA recommended refe rence rangeRandom Glucose Reference Range is dependent on time and content of last meal. Glucose of more than 200 mg/dL in a nonstressed, ambulatory subject supports the diagnosis of Diabetes Mellitus. Result Comment: [place] om Glucose Reference Range is dependent on time and content of last meal. Glucose of more than 200 mg/dL in a nonstressed, ambulatory subject supports the diagnosis of Diabetes Mellitus. ADA recommended reference range Performed By: #### P P, MG, CMP, DIFF CBC #### [facility] [address] [place] [id number] [facility] Glucose [Mass/volume] in Uri ne by Test stripOrdered By: Rubio Crooks on 12-20-2023 Glucose Test strip (U) [Mass/Vol] Normal mg/dL Normal [facility] Hematocrit [Volume Fraction] of Blood by Automated countOrdered By: Rubio Crooks on 12-20-2023 Hematocrit (Bld) [Volume fraction] 38.4 % Low 38.8-50.0 [facility] Comment on above: Performed By: #### P P, MG, CMP, DIFF CBC ####[facility] [id number] Hemoglobin Test strip Ql (U) Ordered By: Rubio Crooks on 12-20-2023 Hemoglobin Ql (U) Negative Negative [facility] Hemoglobin [Mass/volume] in BloodOrdered By: Rubio Crooks on 12-20-2023 Hemoglobin (Bld) [Mass/Vol] 12.8 g/dL Low 13.0-17.0 [facility] Comment on above: Performed By: #### P P, MG, CMP, DIFF CBC ####[facility] [id number] Hyaline casts [#/area] in Ur ine sediment by Automated countOrdered By: Rubio Crooks on 12-20-2023 Hyaline casts Auto (Urine sed) [#/Area] None [LPF] 0-8 [facility] INR in Platelet poor plasma by Coagulation assayOrdered By: Rubio Crooks on 12-20-2023 INR Coag (PPP) [Relative time] 1.8 {INR} Normal [facility] Comment on above: INR Therapeutic Rang e [...] P P, MG, CMP, DIFF CBC #### [facility] [address] [place] [address] [place] Ketones [Presence] in Urine by Test stripOrdered By: Rubio Crooks on 12-20-2023 Ketones Ql (U) Negative Normal Negative [facility] Comment on above: Order Comment: Name Collection Type:: Clean-Voided Midstream Performed By: #### B MP, CBC #### [facility] [address] Leukocyte esterase [Presence ] in Urine by Test stripOrdered By: Rubio Crooks on 12-20-2023 Leukocyte esterase Test strip Ql (U) Negative Normal Negative [facility] Comment on above: Order Comment: Name Collection Type:: Clean-Voided Midstream Performed By: #### B MP, CBC #### [facility] [address] Leukocytes [#/area] in Urine sediment by Automated countOrdered By: Rubio Crooks on 12-20-2023 WBC Auto (Urine sed) [#/Area] 1-2 [HPF] 0-4 [facility] Leukocytes [#/volume] correc amparo for nucleated erythrocytes in Blood by Automated counOrdered By: Rubio Crooks on 12-20-2023 WBC corrected for nucl RBC Auto (Bld) [#/Vol] 7.1 10*3/uL 4.1-10.5 [facility] Leukocytes [#/volume] in Blo od by Automated countOrdered By: Rubio Crooks on 12-20-2023 WBC (Bld) [#/Vol] 7.1 10*3/uL Normal 4.1-10.5 [facility] Comment on above: Performed By: #### P P, MG, CMP, DIFF CBC ####[facility] [id number] Lymphocytes Auto (Bld) [#/Vo l]Ordered By: Rubio Crooks on 12-20-2023 Lymphocytes (Bld) [#/Vol] N/A [facility] Lymphocytes/100 WBC Auto (Bl d)Ordered By: Rubio Crooks on 12-20-2023 Lymphocytes/100 WBC (Bld) N/A [facility] Lymphocytes/100 leukocytes i n Blood by Manual countOrdered By: Rubio Crooks on 12-20-2023 Lymphocytes/100 WBC (Bld) 8 % Low 18-42 [facility] Comment on above: Performed By: #### P P, MG, CMP, DIFF CBC ####[facility] [id number] MCH [Entitic mass] by Automa amparo countOrdered By: Rubio Crooks on 12-20-2023 MCH (RBC) [Entitic mass] 29.8 pg Normal 27.5-35.2 [facility] Comment on above: Performed By: #### P P, MG, CMP, DIFF CBC ####[address] MCHC Auto (RBC) [Mass/Vol]Or dered By: Rubio Crooks on 12-20-2023 MCHC (RBC) [Mass/Vol] 33.4 g/dL 32.5-35.6 [facility] MCV [Entitic volume] by Auto mated countOrdered By: Rubio Crooks on 12-20-2023 MCV (RBC) [Entitic vol] 89.3 fL Normal 83.5-101 [facility] Comment on above: Performed By: #### P P, MG, CMP, DIFF CBC ####[address] Magnesium [Mass/volume] in S iame or PlasmaOrdered By: Rubio Crooks on 12-20-2023 Magnesium [Mass/Vol] 1.7 mg/dL Low 1.9-2.7 [facility] Comment on above: Result Comment: PERF ORMED BY: [facility] [address] [place] [address] PATHOLOGIST [employer] POSITIONER TERI EDMOND M.D. Performed By: #### P P, MG, CMP, DIFF CBC ####[address] Manual blood segmented neutr ophils/100 leukocytesOrdered By: Rubio Crooks on 12-20-2023 Segmented neutrophils/100 WBC (Bld) 84 % High 50-70 [facility] Comment on above: Performed By: #### P P, MG, CMP, DIFF CBC ####[address] Monocyte distribution width [Entitic volume] in Blood by AutomatedOrdered By: Rubio Crooks on 12-20-2023 Monocyte distribution width Auto (Bld) [Entitic vol] 17.52 % 0.00-20.00 [facility] Monocytes Auto (Bld) [#/Vol] Ordered By: Rubio Crooks on 12-20-2023 Monocytes (Bld) [#/Vol] N/A [facility] Monocytes/100 WBC Auto (Bld) Ordered By: Rubio Crooks on 12-20-2023 Monocytes/100 WBC (Bld) N/A [facility] Monocytes/100 leukocytes in Blood by Manual countOrdered By: Rubio Crooks on 12-20-2023 Monocytes/100 WBC (Bld) 7 % Normal 2-11 [facility] Comment on above: Performed By: #### P P, MG, CMP, DIFF CBC ####[facility] [id number] [place] [address] [facility] Myelocytes/100 WBC Manual cn t (Bld)Ordered By: Rubio Crooks on 12-20-2023 Myelocytes/100 WBC (Bld) 1 % High 0-0 [facility] Neutrophils Auto (Bld) [#/Vo l]Ordered By: Rubio Crooks on 12-20-2023 Neutrophils (Bld) [#/Vol] N/A [facility] Neutrophils/100 WBC Auto (Bl d)Ordered By: Rubio Crooks on 12-20-2023 Neutrophils/100 WBC (Bld) N/A [facility] Nitrite Test strip Ql (U)Ord ered By: Rubio Crooks on 12-20-2023 Nitrite Ql (U) Negative Negative [facility] No Panel InformationOrdered By: Rubio Crooks on 12-20-2023 Estimated GFR (CKD-EPI) > 60.0 mL/Min [facility] Creatinine Clearance (Chem 51.02 [facility] > 60.0 mL/Min [facility] 51.02 [facility] Nucleated erythrocytes [Pres ence] in Blood by Automated countOrdered By: Rubio Crooks on 12-20-2023 Nucleated RBC Auto Ql (Bld) N/A [facility] Ovalocyte detectionOrdered B y: Rubio Crooks on 12-20-2023 Ovalocytes LM Ql (Bld) [facility] Platelet adequacy [Presence] in Blood by Light microscopyOrdered By: Rubio Crooks on 12-20-2023 Platelets LM Ql (Bld) Normal Normal [facility] Platelet mean volume [Entiti c volume] in Blood by Automated countOrdered By: Rubio Crooks on 12-20-2023 Platelet mean volume (Bld) [Entitic vol] 8.1 fL Normal 6.6-10.1 [facility] Comment on above: Performed By: #### P P, MG, CMP, DIFF CBC ####[facility] [id number] Platelet morphology finding [Identifier] in BloodOrdered By: Rubio Crooks on 12-20-2023 Platelet morphology finding Nom (Bld) Normal Normal [facility] Platelets [#/volume] in Bloo d by Automated countOrdered By: Rubio Crooks on 12-20-2023 Platelets (Bld) [#/Vol] 156 10*3/uL Normal 150-450 [facility] Comment on above: Performed By: #### P P, MG, CMP, DIFF CBC ####[place] [id number] [address] Poikilocytosis [Presence] in Blood by Light microscopyOrdered By: Rubio Crooks on 12-20-2023 Poikilocytosis LM Ql (Bld) [facility] Polychromasia [Presence] in Blood by Light microscopyOrdered By: Rubio Crooks on 12-20-2023 Polychromasia LM Ql (Bld) [facility] Potassium [Moles/volume] in Serum or PlasmaOrdered By: Rubio Crooks on 12-20-2023 Potassium [Moles/Vol] 4.4 mmol/L Normal 3.5-5.1 [facility] Comment on above: Performed By: #### P P, MG, CMP, DIFF CBC #### [facility] [address] Protein Test strip (U) [Mass /Vol]Ordered By: Rubio Crooks on 12-20-2023 Protein (U) [Mass/Vol] Trace mg/dL High Negative [facility] Protein [Mass/volume] in Ser um or PlasmaOrdered By: Rubio Crooks on 12-20-2023 Protein [Mass/Vol] 7.3 g/dL Normal 6.4-8.9 [facility] Comment on above: Performed By: #### P P, MG, CMP, DIFF CBC #### [address] Prothrombin time (PT)Ordered By: Rubio Crooks on 12-20-2023 PT Coag (PPP) [Time] 20.7 s High 9.0-12.9 [facility] Comment on above: A hematocrit value g reater than 55% may lead to inaccurate results in coagulation testing. Patients having hematocrit values >55% require a special collection tube for coagulation studies. Please contact the laboratory at [phone] for redraw instructions. Result Comment: A he matocrit value greater than 55% may lead to inaccurate results in coagulation testing. Patients having hematocrit values >55% require a special collection tube for coagulation studies. Please contact the laboratory at [phone] for redraw instructions. Performed By: #### P P, MG, CMP, DIFF CBC #### [address] RBC morphologyOrdered By: Raquel Crooks on 12-20-2023 RBC morphology finding Nom (Bld) N/A [facility] Serum globulin measurement b y calculation (mass/volume)Ordered By: Rubio Crooks on 12-20-2023 Globulin (S) [Mass/Vol] 3.1 g/dL [facility] Comment on above: Performed By: #### P P, MG, CMP, DIFF CBC #### [address] Serum or plasma albumin/glob ulin mass ratioOrdered By: Rubio Crooks on 12-20-2023 Albumin/Globulin [Mass ratio] 1.4 {ratio} [facility] Comment on above: Performed By: #### P P, MG, CMP, DIFF CBC #### [address] Serum or plasma anion gap de terminationOrdered By: Rubio Crooks on 12-20-2023 Anion gap [Moles/Vol] 9.4 mmol/L Normal 6.0-15.0 [facility] Comment on above: Performed By: #### P P, MG, CMP, DIFF CBC #### [address] Sodium [Moles/volume] in Ser um or PlasmaOrdered By: Rubio Crooks on 12-20-2023 Sodium [Moles/Vol] 138 mmol/L Normal 136-145 [facility] Comment on above: Performed By: #### P P, MG, CMP, DIFF CBC #### [facility] [address] [place] [address] [place] Specific gravity Test strip (U) [Rel density]Ordered By: Rubio Crooks on 12-20-2023 Specific gravity (U) [Rel density] 1.019 1.001-1.03 0 [facility] Urea nitrogen [Mass/volume] in Serum or PlasmaOrdered By: Rubio Crooks on 12-20-2023 Urea nitrogen [Mass/Vol] 31 mg/dL High - [facility] Comment on above: Performed By: #### P P, MG, CMP, DIFF CBC #### [facility] [address] Urine appearanceOrdered By: Rubio Crooks on 12-20-2023 Appearance (U) Clear Normal Clear [facility] Comment on above: Order Comment: Name Collection Type:: Clean-Voided Midstream Performed By: #### B MP, CBC #### [address] Urobilinogen Test strip (U) [Mass/Vol]Ordered By: Rubio Crooks on 12-20-2023 Urobilinogen (U) [Mass/Vol] Normal mg/dL Normal [facility] XR femur RT 2V*on 12-20-2023 XR femur RT 2V* [facility] [place] [address] XRay Report Signed Patient: Fani Chua MR#: [id number] : 1935 Acct:[id number] Age/Sex: 88 / M ADM Date: 12/20/23 Loc: Room: [address] [place] [address] Type: ADM INOo Attending Dr: Betty Buchanan MD Copies to: MD Rubio Owen Jr, MD Ordering Provider: Rubio Crooks Jr, MD Date of Service: 12/20/23 XR/XR knee RT 4V*: Fall ([id number]) XR/XR femur RT 2V*: Fall ([id number]) XR/XR shoulder LT min 2V*: Fall CLINICAL [...] Cyn Llamas M.D.12/20/2023 10:33 AM Dictation Location: [place] [address] Transcribed By: [facility] 12/20/23 1033 Dictated By: Cyn Llamas MD 12/20/23 1028 Signed By: 12/20/23 1033 Normal [facility] pH of Urine by Test stripOrd ered By: Rubio Crooks on 12-20-2023 pH (U) 5.0 [pH] Normal 5.0-9.0 [facility] Comment on above: Order Comment: Name Collection Type:: Clean-Voided Midstream Performed By: #### B MP, CBC #### [place] [id number] [place] INR in Platelet poor plasma by Coagulation assayOrdered By: Isai May on 06-06-2023 INR Coag (PPP) [Relative time] 2.2 {INR} [facility] Comment on above: INR Therapeutic Rang e [...] on 06-06-2023 Magnesium [Mass/Vol] 1.6 mg/dL 1.9-2.7 [facility] Prothrombin time (PT)Ordered By: Isai May on 06-06-2023 PT Coag (PPP) [Time] 25.0 s 9.0-12.9 [facility] Comment on above: A hematocrit value g reater than 55% may lead to inaccurate results in coagulation testing. Patients having hematocrit values >55% require a special collection tube for coagulation studies. Please contact the laboratory at [phone] for redraw instructions. Basophils Auto (Bld) [#/Vol] Ordered By: Isai May on 06-05-2023 Basophils (Bld) [#/Vol] 0.0 10*3/uL 0.0-0.2 [facility] Basophils/100 WBC Auto (Bld) Ordered By: Isai May on 06-05-2023 Basophils/100 WBC (Bld) 0.6 % . [facility] Calcium [Mass/volume] in Ser um or PlasmaOrdered By: Isai May on 06-05-2023 Calcium [Mass/Vol] 9.2 mg/dL 8.6-10.3 [facility] Carbon dioxide, total [Moles /volume] in Serum or PlasmaOrdered By: Isai May on 06-05-2023 CO2 [Moles/Vol] 25.2 mmol/L 21.0-31.0 [facility] Chloride [Moles/volume] in S aime or PlasmaOrdered By: Isai May on 06-05-2023 Chloride [Moles/Vol] 106 mmol/L 98-107 [facility] Cholesterol [Mass/volume] in Serum or PlasmaOrdered By: Isai May on 06-05-2023 Cholesterol [Mass/Vol] 148 mg/dL 140-200 [facility] Comment on above: Chol less than 200 m g/dl low riskChol 201-239 mg/dl borderline riskChol 240 mg/dl and greater high risk Cholesterol in LDL Calc [Mas s/Vol]Ordered By: Isai May on 06-05-2023 Cholesterol in LDL [Mass/Vol] 79 mg/dL 0-100 [facility] Comment on above: LDL ATP III CLASSIFI CATIONLDL less than 100 mg/dL OptimalLDL 100-129 mg/dL Near or above optimalLDL 130-159 mg/dL Borderline highLDL 160-189 mg/dL HighLDL greater than 189 mg/dL Very high Cholesterol in VLDL Calc [Ma ss/Vol]Ordered By: Isai May on 06-05-2023 Cholesterol in VLDL [Mass/Vol] 17 mg/dL [facility] Creatine kinase [Enzymatic a ctivity/volume] in Serum or PlasmaOrdered By: Isai May on 06-05-2023 CK [Catalytic activity/Vol] 56 U/L 30-223 [facility] Creatinine [Mass/volume] in Serum or PlasmaOrdered By: Isai May on 06-05-2023 Creatinine [Mass/Vol] 0.86 mg/dL 0.70-1.30 [facility] Eosinophils Auto (Bld) [#/Vo l]Ordered By: Isai May on 06-05-2023 Eosinophils (Bld) [#/Vol] 0.1 10*3/uL 0.0-0.45 [facility] Eosinophils/100 WBC Auto (Bl d)Ordered By: Isai May on 06-05-2023 Eosinophils/100 WBC (Bld) 2.3 % . [facility] Erythrocyte distribution wid th Auto (RBC) [Ratio]Ordered By: Isai May on 06-05-2023 Erythrocyte distribution width (RBC) [Ratio] 14.6 % 12.0-14.8 [facility] Glucose [Mass/volume] in Ser um or PlasmaOrdered By: Isai May on 06-05-2023 Glucose [Mass/Vol] 96 mg/dL 70-100 [facility] Comment on above: ADA recommended refe rence rangeRandom Glucose Reference Range is dependent on time and content of last meal. Glucose of more than 200 mg/dL in a nonstressed, ambulatory subject supports the diagnosis of Diabetes Mellitus. Glucose mean value [Mass/vol ume] in Blood Estimated from glycated hemoglobinOrdered By: Isia May on 06-05-2023 Average glucose Estimated from glycated hemoglobin (Bld) [Mass/Vol] 114 mg/dL [facility] Hematocrit Auto (Bld) [Volum e fraction]Ordered By: Isai May on 06-05-2023 Hematocrit (Bld) [Volume fraction] 35.9 % 38.8-50.0 [facility] Hemoglobin A1c percentageOrd ered By: Isai May on 06-05-2023 HbA1c (Bld) [Mass fraction] 5.6 % 4.3-5.6 [facility] Comment on above: Increased risk for d iabetes: 5.7 - 6.4diabetes: >6.4glycemic control for adults with diabetes: <7.0 Hemoglobin [Mass/volume] in BloodOrdered By: Isai May on 06-05-2023 Hemoglobin (Bld) [Mass/Vol] 12.0 g/dL 13.0-17.0 [facility] Leukocytes [#/volume] correc amparo for nucleated erythrocytes in Blood by Automated counOrdered By: Isai May on 06-05-2023 WBC corrected for nucl RBC Auto (Bld) [#/Vol] 4.8 10*3/uL 4.1-10.5 [facility] Lymphocytes Auto (Bld) [#/Vo l]Ordered By: Isai May on 06-05-2023 Lymphocytes (Bld) [#/Vol] 1.2 10*3/uL 1.00-4.8 [facility] Lymphocytes/100 WBC Auto (Bl d)Ordered By: Isai May on 06-05-2023 Lymphocytes/100 WBC (Bld) 24.7 % . [facility] MCH Auto (RBC) [Entitic mass ]Ordered By: Isai May on 06-05-2023 MCH (RBC) [Entitic mass] 29.3 pg 27.5-35.2 [facility] MCHC Auto (RBC) [Mass/Vol]Or dered By: Isai May on 06-05-2023 MCHC (RBC) [Mass/Vol] 33.6 g/dL 32.5-35.6 [facility] MCV Auto (RBC) [Entitic vol] Ordered By: Isai May on 06-05-2023 MCV (RBC) [Entitic vol] 87.4 fL 83.5-101 [facility] Monocytes Auto (Bld) [#/Vol] Ordered By: Isai May on 06-05-2023 Monocytes (Bld) [#/Vol] 0.7 10*3/uL 0.0-0.8 [facility] Monocytes/100 WBC Auto (Bld) Ordered By: Isai May on 06-05-2023 Monocytes/100 WBC (Bld) 13.7 % . [facility] Neutrophils Auto (Bld) [#/Vo l]Ordered By: Isai May on 06-05-2023 Neutrophils (Bld) [#/Vol] 2.8 10*3/uL 1.8-7.7 [facility] Neutrophils/100 WBC Auto (Bl d)Ordered By: Isai May on 06-05-2023 Neutrophils/100 WBC (Bld) 58.7 % . [facility] No Panel InformationOrdered By: Isai May on 06-05-2023 Estimated GFR (CKD-EPI) > 60.0 mL/Min [facility] Creatinine Clearance (Chem 60.52 [facility] Nucleated erythrocytes [Pres ence] in Blood by Automated countOrdered By: Isai May on 06-05-2023 Nucleated RBC Auto Ql (Bld) 0.0 /100{WBC} 0-0.5 [facility] Platelet mean volume Auto (B ld) [Entitic vol]Ordered By: Isai May on 06-05-2023 Platelet mean volume (Bld) [Entitic vol] 8.4 fL 6.6-10.1 [facility] Platelets Auto (Bld) [#/Vol] Ordered By: Isai May on 06-05-2023 Platelets (Bld) [#/Vol] 158 10*3/uL 150-450 [facility] Potassium [Moles/volume] in Serum or PlasmaOrdered By: Isai May on 06-05-2023 Potassium [Moles/Vol] 3.7 mmol/L 3.5-5.1 [facility] RBC Auto (Bld) [#/Vol]Ordere d By: Isai May on 06-05-2023 RBC (Bld) [#/Vol] 4.11 10*6/uL 3.90-5.60 [facility] Serum or plasma anion gap de terminationOrdered By: Isai May on 06-05-2023 Anion gap [Moles/Vol] 11.5 mmol/L 6.0-15.0 [facility] Serum or plasma high density lipoprotein (HDL) cholesterol measurementOrdered By: Isai May on 06-05-2023 Cholesterol in HDL [Mass/Vol] 52 mg/dL 23-92 [facility] Comment on above: HDL CHOL ATP-III CLA SSIFICATION Cardiovascular RiskHDL > or equal to 60 mg/dL LOWHDL < 40 mg/dL HIGH Serum or plasma total choles terol/high density lipoprotein (HDL) cholesterol mass ratOrdered By: Isai May on 06-05-2023 Cholesterol.total/Chol esterol in HDL [Mass ratio] 2.8 {ratio} <5.0 [facility] Sodium [Moles/volume] in Ser um or PlasmaOrdered By: sIai May on 06-05-2023 Sodium [Moles/Vol] 139 mmol/L 136-145 [facility] Triglyceride [Mass/volume] i n Serum or PlasmaOrdered By: Isai May on 06-05-2023 Triglyceride [Mass/Vol] 87 mg/dL 0-149 [facility] Comment on above: TRIG ATP III CLASSIF [...] <= 0.01 ng/mL [Mass/Vol] 55.4 pg/mL 0.0-20.0 [facility] Comment on above: Critical Result : Ca lled to and read back by: DELILAH PINON at: 06/05/2023 20:01:35 by:[id number] Urea nitrogen [Mass/volume] in Serum or PlasmaOrdered By: Isai May on 06-05-2023 Urea nitrogen [Mass/Vol] 20 mg/dL 01-06 [facility] WBC Auto (Bld) [#/Vol]Ordere d By: Isai May on 06-05-2023 WBC (Bld) [#/Vol] 4.8 10*3/uL 4.1-10.5 [facility] Activated partial thrombopla stin time (aPTT) in platelet poor plasma by coagulation aOrdered By: Tay Wood on 06-04-2023 aPTT Coag (PPP) [Time] 48.5 s 25.1-36.5 [facility] Comment on above: A hematocrit value g reater than 55% may lead to inaccurate results in coagulation testing. Patients having hematocrit values >55% require a special collection tube for coagulation studies. Please contact the laboratory at [phone] for redraw instructions. Alanine aminotransferase [En zymatic activity/volume] in Serum or PlasmaOrdered By: Tay Wood on 06-04-2023 ALT [Catalytic activity/Vol] 19 U/L 7-52 [facility] Albumin [Mass/volume] in Ser um or Plasma by Bromocresol green (BCG) dye binding methoOrdered By: Tay Wood on 06-04-2023 Albumin BCG dye [Mass/Vol] 4.2 g/dL 3.5-5.7 [facility] Alkaline phosphatase [Enzyma tic activity/volume] in Serum or PlasmaOrdered By: Tay Wood on 06-04-2023 ALP [Catalytic activity/Vol] 97 U/L 34-104 [facility] Aspartate aminotransferase [ Enzymatic activity/volume] in Serum or PlasmaOrdered By: Tay Wood on 06-04-2023 AST [Catalytic activity/Vol] 30 U/L 13-39 [facility] Bilirubin Test strip Ql (U)O rdered By: Tay Wood on 06-04-2023 Bilirubin Ql (U) Negative Negative [facility] Bilirubin.direct [Mass/volum e] in Serum or PlasmaOrdered By: Tay Wood on 06-04-2023 Bilirubin.direct [Mass/Vol] 0.10 mg/dL 0.03-0.18 [facility] Bilirubin.total [Mass/volume ] in Serum or PlasmaOrdered By: Tay Wood on 06-04-2023 Bilirubin [Mass/Vol] 0.5 mg/dL 0.3-1.0 [facility] Color Auto (U)Ordered By: Tomas red Nina on 06-04-2023 Color (U) Yellow Yellow [facility] Creatinine (Bld) [Mass/Vol]O rdered By: Isai May on 06-04-2023 Creatinine [Mass/Vol] 1.0 mg/dL 0.6-1.3 [facility] Comment on above: ER/ESD physician is notified/shown all ISTAT results.Critical values may be confirmed by laboratory testing ifdeemed necessary by ER attending doctor. Globulin Calc (S) [Mass/Vol] Ordered By: Tay Wood on 06-04-2023 Globulin (S) [Mass/Vol] 3.1 g/dL [facility] Glucose Glucometer (BldC) [M ass/Vol]Ordered By: Tay Wood on 06-04-2023 Glucose [Mass/Vol] 92 mg/dL [facility] Comment on above: Random Glucose Refer ence Range is dependent on time and content of last meal. Glucose of more than 200 mg/dL in a nonstressed, ambulatory subject supports the diagnosis of Diabetes Mellitus. Ketones Auto test strip (U) [Mass/Vol]Ordered By: Tay Wood on 06-04-2023 Ketones (U) [Mass/Vol] Negative Negative [facility] Monocyte distribution width [Entitic volume] in Blood by AutomatedOrdered By: Tay Wood on 06-04-2023 Monocyte distribution width Auto (Bld) [Entitic vol] 17.82 % 0.00-20.00 [facility] Natriuretic peptide B [Mass/ Vol]Ordered By: Tay Wood on 06-04-2023 Natriuretic peptide B (Bld) [Mass/Vol] 404.0 pg/mL 5-100 [facility] Nitrite Test strip Ql (U)Ord ered By: Tay Wood on 06-04-2023 Nitrite Ql (U) Negative Negative [facility] No Panel InformationOrdered By: Isai May on 06-04-2023 Bedside Estimated GFR (eGFR) > 60.0 [facility] Protein Auto test strip (U) [Mass/Vol]Ordered By: Tay Wood on 06-04-2023 Protein (U) [Mass/Vol] Negative Negative [facility] Protein [Mass/volume] in Ser um or PlasmaOrdered By: Tay Wood on 06-04-2023 Protein [Mass/Vol] 7.3 g/dL 6.4-8.9 [facility] Serum or plasma albumin/glob ulin mass ratioOrdered By: Tay Wood on 06-04-2023 Albumin/Globulin [Mass ratio] 1.4 {ratio} [facility] Serum or plasma non-glucuron idated bilirubin measurement (mass/volume)Ordered By: Tay Wood on 06-04-2023 Bilirubin.indirect [Mass/Vol] 0.4 mg/dL [facility] Specific gravity Auto test s trip (U) [Rel density]Ordered By: Tay Wood on 06-04-2023 Specific gravity (U) [Rel density] 1.038 1.001-1.03 0 [facility] Urine clarity by refractomet ry automatedOrdered By: Tay Wood on 06-04-2023 Clarity Refractometry automated (U) Clear Clear [facility] Urine glucose measurement by automated test strip (mass/volume)Ordered By: Tay Wood on 06-04-2023 Glucose Auto test strip (U) [Mass/Vol] Normal mg/dL Normal [facility] Urine hemoglobin detection b y automated test stripOrdered By: Tay Wood on 06-04-2023 Hemoglobin Auto test strip Ql (U) Negative Negative [facility] Urine leukocyte esterase det ection by automated test stripOrdered By: Tay Wood on 06-04-2023 Leukocyte esterase Auto test strip Ql (U) Negative Negative [facility] Urobilinogen Auto test strip (U) [Mass/Vol]Ordered By: Tay Wood on 06-04-2023 Urobilinogen (U) [Mass/Vol] Normal mg/dL Normal [facility] pH Auto test strip (U)Ordere d By: Tay oWod on 06-04-2023 pH (U) 5.0 [pH] 5.0-9.0 [facility] Ammonium urate crystals dete ction in stone by infrared spectroscopyOrdered By: Julio C Ramirez on 05-05-2023 Ammonium urate crystals Infrared spectroscopy Ql (Stone) N/A [facility] Calcium bilirubinate measure mentOrdered By: Julio C Ramirez on 05-05-2023 Calcium bilirubinate (Stone) [Mass fraction] N/A [facility] Calcium carbonate measuremen tOrdered By: Julio C Ramirez on 05-05-2023 Calcium carbonate (Stone) [Mass fraction] N/A [facility] Calcium hydrogen phosphate d ihydrate/Total in StoneOrdered By: Julio C Ramirez on 05-05-2023 Calcium hydrogen phosphate dihydrate (Stone) [Mass fraction] N/A [facility] Calcium oxalate dihydrate cr ystals detection in stone by infrared spectroscopyOrdered By: Julio C Ramirez on 05-05-2023 Calcium oxalate dihydrate crystals Infrared spectroscopy Ql (Stone) N/A [facility] Calcium oxalate monohydrate/ Total in StoneOrdered By: Julio C Ramirez on 05-05-2023 Calcium oxalate monohydrate (Stone) [Mass fraction] 10 % . [facility] Calcium phosphate measuremen tOrdered By: Julio C Ramirez on 05-05-2023 Calcium phosphate (Stone) [Mass fraction] N/A [facility] Calculus analysis interpreta tion in stoneOrdered By: Julio C Ramirez on 05-05-2023 Calculus analysis [Interp] N/A [facility] Calculus analysis [Interp] See comment . [facility] Comment on above: Calculus received we t. Wet calculi must be dried beforeanalysis, which delays reporting of results. Leaving calculiwet (such as water, saline, blood, urine) may lead tochanges in composition. Physician questions regarding Calculi Analysis contactLabCorp at: [phone]. Calculi report will follow via computer, mail or courierdelivery. Calculus analysis with calcu ewa photography interpretation in stoneOrdered By: Julio C Ramirez on 05-05-2023 Calculus analysis with calculus photography [Interp] See comment . [facility] Comment on above: Photograph will foll ow under a separate cover Cellular material measuremen t in stone by estimated (mass/mass)Ordered By: Julio C Ramirez on 05-05-2023 Cellular material Est (Stone) [Mass/Mass] N/A [facility] Cholesterol/Total in StoneOr dered By: Julio C Ramirez on 05-05-2023 Cholesterol (Stone) [Mass fraction] N/A [facility] Composition of stoneOrdered By: Julio C Ramirez on 05-05-2023 Composition Nom (Stone) See comment . [facility] Comment on above: Percentage (Represen ts the % composition) Cystine measurementOrdered B y: Julio C Ramirez on 05-05-2023 Cystine (Unsp spec) [Moles/Vol] N/A [facility] Determination of color of ca lculusOrdered By: Julio C Ramirez on 05-05-2023 Color (Stone) Brown . [facility] Hydroxyapatite [Energy Diffe rence] in 24 hour UrineOrdered By: Julio C Ramirez on 05-05-2023 Hydroxyapatite (24H U) [Energy diff] N/A [facility] Measurement of proportion of calculus composed of dried blood (mass/mass)Ordered By: Julio C Ramirez on 05-05-2023 Blood.dried (Stone) [Mass fraction] N/A [facility] Newberyite/Total in StoneOrd ered By: Julio C Ramirez on 05-05-2023 Newberyite (Stone) [Mass fraction] N/A [facility] No Panel InformationOrdered By: Julio C Ramirez on 05-05-2023 Stone 2,8 Dihydroxyadenine N/A [facility] Stone Analysis Disclaimer See comment . [facility] Comment on above: This test was develo ped and its performance characteristicsdetermined by [facility]. It has not been cleared or approvedby the Food and Drug Administration.Performed at: [facility] [id number] [id number] Director: Tone Kelly PhD, Phone: [phone] [place] Bilirubinate N/A [facility] Stone Calcium Palmitate N/A [facility] Stone Calcium Stearate N/[facility] Stone Carbonate Apatite N/A [facility] Stone Drug or Metabolite N/A [facility] Stone Other Constituent N/A [facility] Stone Xanthine N/A [facility] Size [Entitic volume] of Sto neOrdered By: Julio C Ramirez on 05-05-2023 Size (Stone) [Entitic vol] 5x3 mm . [facility] Comment on above: Multiple pieces rece ived. Dimensions of the largest piecereported. Sodium urate crystals detect ion in stone by infrared spectroscopyOrdered By: Julio C Ramirez on 05-05-2023 Sodium urate crystals Infrared spectroscopy Ql (Stone) N/A [facility] Specimen source subject [Typ e]Ordered By: Julio C Ramirez on 05-05-2023 Specimen source subject Nom See comment . [facility] Comment on above: Right Ureter Triamterene measurement in c alculusOrdered By: Julio C Ramirez on 05-05-2023 Triamterene (Stone) [Mass fraction] N/A [facility] Triple phosphate/Total in St oneOrdered By: Julio C Ramirez on 05-05-2023 Triple phosphate (Stone) [Mass fraction] N/A [facility] Uric acid dihydrate crystals detection in stone by infrared spectroscopyOrdered By: Julio C Ramirez on 05-05-2023 Urate dihydrate crystals Infrared spectroscopy Ql (Stone) 90 % . 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 Ramirez 04/10/2023 CPT Codes: Echo Complete w Full Doppler-[id number] Study Detail: The following Echo studies were [...] included)... 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 Ramirez 04/10/2023 CPT Codes: Echo Complete w Full Doppler-[id number] Study Detail: The following Echo studies were [...] AORTIC INSUFFICIENCY: A (more content not included)... [facility] Work Phone: Activated partial thrombopla stin time (aPTT) in platelet poor plasma by coagulation aOrdered By: Julio C Ramirez on 04-02-2023 aPTT Coag (PPP) [Time] 37.0 s 25.1-36.5 [facility] Comment on above: A hematocrit value g reater than 55% may lead to inaccurate results in coagulation testing. Patients having hematocrit values >55% require a special collection tube for coagulation studies. Please contact the laboratory at [phone] for redraw instructions. Basophils Auto (Bld) [#/Vol] Ordered By: Julio C Ramirez on 04-02-2023 Basophils (Bld) [#/Vol] 0.0 10*3/uL 0.0-0.2 [facility] Basophils/100 WBC Auto (Bld) Ordered By: Julio C Ramirez on 04-02-2023 Basophils/100 WBC (Bld) 0.8 % . [facility] Calcium [Mass/volume] in Ser um or PlasmaOrdered By: Julio C Ramirez on 04-02-2023 Calcium [Mass/Vol] 9.6 mg/dL 8.6-10.3 [facility] Carbon dioxide, total [Moles /volume] in Serum or PlasmaOrdered By: Julio C Ramirez on 04-02-2023 CO2 [Moles/Vol] 26.1 mmol/L 21.0-31.0 [facility] Chloride [Moles/volume] in S aime or PlasmaOrdered By: Julio C Ramirez on 04-02-2023 Chloride [Moles/Vol] 106 mmol/L 98-107 [facility] Creatinine [Mass/volume] in Serum or PlasmaOrdered By: Julio C Ramirez on 04-02-2023 Creatinine [Mass/Vol] 1.12 mg/dL 0.70-1.30 [facility] Eosinophils Auto (Bld) [#/Vo l]Ordered By: Julio C Ramirez on 04-02-2023 Eosinophils (Bld) [#/Vol] 0.1 10*3/uL 0.0-0.45 [facility] Eosinophils/100 WBC Auto (Bl d)Ordered By: Julio C Ramirez on 04-02-2023 Eosinophils/100 WBC (Bld) 1.9 % . [facility] Erythrocyte distribution wid th Auto (RBC) [Ratio]Ordered By: Julio C Ramirez on 04-02-2023 Erythrocyte distribution width (RBC) [Ratio] 15.9 % 12.0-14.8 [facility] Glucose [Mass/volume] in Ser um or PlasmaOrdered By: Julio C Ramirez on 04-02-2023 Glucose [Mass/Vol] 103 mg/dL 70-100 [facility] Comment on above: ADA recommended refe rence rangeRandom Glucose Reference Range is dependent on time and content of last meal. Glucose of more than 200 mg/dL in a nonstressed, ambulatory subject supports the diagnosis of Diabetes Mellitus. Hematocrit Auto (Bld) [Volum e fraction]Ordered By: Julio C Ramirez on 04-02-2023 Hematocrit (Bld) [Volume fraction] 39.9 % 38.8-50.0 [facility] Hemoglobin [Mass/volume] in BloodOrdered By: Julio C Ramirez on 04-02-2023 Hemoglobin (Bld) [Mass/Vol] 13.4 g/dL 13.0-17.0 [facility] INR in Platelet poor plasma by Coagulation assayOrdered By: Julio C Ramirez on 04-02-2023 INR Coag (PPP) [Relative time] 1.9 {INR} [facility] Comment on above: INR Therapeutic Rang e [...] RBC Auto (Bld) [#/Vol] 5.7 10*3/uL 4.1-10.5 [facility] Lymphocytes Auto (Bld) [#/Vo l]Ordered By: Julio C Ramirez on 04-02-2023 Lymphocytes (Bld) [#/Vol] 1.5 10*3/uL 1.00-4.8 [facility] Lymphocytes/100 WBC Auto (Bl d)Ordered By: Julio C Ramirez on 04-02-2023 Lymphocytes/100 WBC (Bld) 25.5 % . [facility] MCH Auto (RBC) [Entitic mass ]Ordered By: Julio C Ramirez on 04-02-2023 MCH (RBC) [Entitic mass] 29.6 pg 27.5-35.2 [facility] MCHC Auto (RBC) [Mass/Vol]Or dered By: Julio C Ramirez on 04-02-2023 MCHC (RBC) [Mass/Vol] 33.6 g/dL 32.5-35.6 [facility] MCV Auto (RBC) [Entitic vol] Ordered By: Julio C Ramirez on 04-02-2023 MCV (RBC) [Entitic vol] 88.1 fL 83.5-101 [facility] Monocytes Auto (Bld) [#/Vol] Ordered By: Julio C Ramirez on 04-02-2023 Monocytes (Bld) [#/Vol] 0.6 10*3/uL 0.0-0.8 [facility] Monocytes/100 WBC Auto (Bld) Ordered By: Julio C Ramirez on 04-02-2023 Monocytes/100 WBC (Bld) 10.9 % . [facility] Neutrophils Auto (Bld) [#/Vo l]Ordered By: Julio C Ramirez on 04-02-2023 Neutrophils (Bld) [#/Vol] 3.5 10*3/uL 1.8-7.7 [facility] Neutrophils/100 WBC Auto (Bl d)Ordered By: Julio C Ramirez on 04-02-2023 Neutrophils/100 WBC (Bld) 60.9 % . [facility] No Panel InformationOrdered By: Julio C Ramirez on 04-02-2023 Estimated GFR (CKD-EPI) > 60.0 mL/Min [facility] Creatinine Clearance (Chem N/A [facility] Nucleated erythrocytes [Pres ence] in Blood by Automated countOrdered By: Julio C Ramirez on 04-02-2023 Nucleated RBC Auto Ql (Bld) 0.1 /100{WBC} 0-0.5 [facility] Platelet mean volume Auto (B ld) [Entitic vol]Ordered By: Julio C Ramirez on 04-02-2023 Platelet mean volume (Bld) [Entitic vol] 8.3 fL 6.6-10.1 [facility] Platelets Auto (Bld) [#/Vol] Ordered By: Julio C Ramirez on 04-02-2023 Platelets (Bld) [#/Vol] 175 10*3/uL 150-450 [facility] Potassium [Moles/volume] in Serum or PlasmaOrdered By: Julio C Ramirez on 04-02-2023 Potassium [Moles/Vol] 4.4 mmol/L 3.5-5.1 [facility] Prothrombin time (PT)Ordered By: Julio C Ramirez on 04-02-2023 PT Coag (PPP) [Time] 22.4 s 9.0-12.9 [facility] Comment on above: A hematocrit value g reater than 55% may lead to inaccurate results in coagulation testing. Patients having hematocrit values >55% require a special collection tube for coagulation studies. Please contact the laboratory at [phone] for redraw instructions. RBC Auto (Bld) [#/Vol]Ordere d By: Julio C Ramirez on 04-02-2023 RBC (Bld) [#/Vol] 4.53 10*6/uL 3.90-5.60 [facility] Serum or plasma anion gap de terminationOrdered By: Julio C Ramirez on 04-02-2023 Anion gap [Moles/Vol] 12.3 mmol/L 6.0-15.0 [facility] Sodium [Moles/volume] in Ser um or PlasmaOrdered By: Julio C Ramirez on 04-02-2023 Sodium [Moles/Vol] 140 mmol/L 136-145 [facility] Urea nitrogen [Mass/volume] in Serum or PlasmaOrdered By: Julio C Ramirez on 04-02-2023 Urea nitrogen [Mass/Vol] 27 mg/dL 7-25 [facility] WBC Auto (Bld) [#/Vol]Ordere d By: Julio C Ramirez on 04-02-2023 WBC (Bld) [#/Vol] 5.7 10*3/uL 4.1-10.5 [facility] Office Visit (Cardiology)on 02-24-2023 Follow-up visit Diagnoses/Problems [...] Echocardiogram; Status:Hold For - Scheduling,Retrospective Authorization; Requested for:[id number]; SocHx: Former smoker Tobacco Use Screening; Status:Complete; Done: [id number] Patient Instructions Please bring all medicines, vitamins, and herbal supplements with you when you come to the office. Prescriptions will not be filled unless you are compliant with your follow up appointments or have a follow up appointment scheduled as per instruction of your physician. Refills should be requested at the time of your visit. Echo Same meds Retrieve CT from [facility] Follow up in 1 year. Chief Complaint [...] ONE TABLET BY MOUTH DAILY DIRECTED PER [facility] Patient did not bring medication [...] Cardiovascular: no (more content not included)... [facility] [employer] Tobacco Screening.on 023 Adult depression screening assessment No [facility] [facility] DO Work Phone: Fall risk assessment a) No falls within the last year -[facility] [facility] DO Work Phone: Tobacco use status CP b) No -[facility] [facility] DO Work Phone: Activated partial thrombopla stin time (aPTT) in platelet poor plasma by coagulation aOrdered By: Gely Lin on 01-19-2023 aPTT Coag (PPP) [Time] 32.8 s 25.1-36.5 [facility] Bacterial blood cultureOrder ed By: Gely Lin on 01-19-2023 Bacteria identified Cx Nom (Bld) NO GROWTH 5 DAYS [facility] Basophils Auto (Bld) [#/Vol] Ordered By: Gely Lin on 01-19-2023 Basophils (Bld) [#/Vol] 0.0 10*3/uL 0.0-0.2 [facility] Basophils/100 WBC Auto (Bld) Ordered By: Gely Lin on 01-19-2023 Basophils/100 WBC (Bld) 0.4 % . [facility] Calcium [Mass/volume] in Ser um or PlasmaOrdered By: Gely Lin on 01-19-2023 Calcium [Mass/Vol] 9.0 mg/dL 8.6-10.3 [facility] Carbon dioxide, total [Moles /volume] in Serum or PlasmaOrdered By: Gely Lin on 01-19-2023 CO2 [Moles/Vol] 26.5 mmol/L 21.0-31.0 [facility] Chloride [Moles/volume] in S aime or PlasmaOrdered By: Gely Lin on 01-19-2023 Chloride [Moles/Vol] 100 mmol/L 98-107 [facility] Creatinine [Mass/volume] in Serum or PlasmaOrdered By: Gely Lin on 01-19-2023 Creatinine [Mass/Vol] 1.09 mg/dL 0.70-1.30 [facility] Eosinophils Auto (Bld) [#/Vo l]Ordered By: Gely Lin on 01-19-2023 Eosinophils (Bld) [#/Vol] 0.2 10*3/uL 0.0-0.45 [facility] Eosinophils/100 WBC Auto (Bl d)Ordered By: Gely Lin on 01-19-2023 Eosinophils/100 WBC (Bld) 2.7 % . [facility] Erythrocyte distribution wid th Auto (RBC) [Ratio]Ordered By: Gely Lin on 01-19-2023 Erythrocyte distribution width (RBC) [Ratio] 14.9 % 12.0-14.8 [facility] Glucose [Mass/volume] in Ser um or PlasmaOrdered By: Gely Lin on 01-19-2023 Glucose [Mass/Vol] 103 mg/dL 70-100 [facility] Comment on above: ADA recommended refe rence rangeRandom Glucose Reference Range is dependent on time and content of last meal. Glucose of more than 200 mg/dL in a nonstressed, ambulatory subject supports the diagnosis of Diabetes Mellitus. Hematocrit Auto (Bld) [Volum e fraction]Ordered By: Gely Lin on 01-19-2023 Hematocrit (Bld) [Volume fraction] 37.8 % 38.8-50.0 [facility] Hemoglobin [Mass/volume] in BloodOrdered By: Gely Lin on 01-19-2023 Hemoglobin (Bld) [Mass/Vol] 12.5 g/dL 13.0-17.0 [facility] Laboratory - CoagulationOrde red By: Gely Lin on 01-19-2023 PT Coag (PPP) [Time] 14.7 s 9.0-12.9 [facility] Lactate [Moles/volume] in Se rum or PlasmaOrdered By: Gely Lin on 01-19-2023 Lactate [Moles/Vol] 1.6 mmol/L 0.5-2.2 [facility] Leukocytes [#/volume] correc amparo for nucleated erythrocytes in Blood by Automated counOrdered By: Gely Lin on 01-19-2023 WBC corrected for nucl RBC Auto (Bld) [#/Vol] 5.6 10*3/uL 4.1-10.5 [facility] Lymphocytes Auto (Bld) [#/Vo l]Ordered By: Gely Lin on 01-19-2023 Lymphocytes (Bld) [#/Vol] 0.6 10*3/uL 1.00-4.8 [facility] Lymphocytes/100 WBC Auto (Bl d)Ordered By: Gely Lin on 01-19-2023 Lymphocytes/100 WBC (Bld) 10.2 % . [facility] MCH Auto (RBC) [Entitic mass ]Ordered By: Gely Lin on 01-19-2023 MCH (RBC) [Entitic mass] 28.7 pg 27.5-35.2 [facility] MCHC Auto (RBC) [Mass/Vol]Or dered By: Gely Lin on 01-19-2023 MCHC (RBC) [Mass/Vol] 33.0 g/dL 32.5-35.6 [facility] MCV Auto (RBC) [Entitic vol] Ordered By: Gely Lin on 01-19-2023 MCV (RBC) [Entitic vol] 87.0 fL 83.5-101 [facility] Monocyte distribution width [Entitic volume] in Blood by AutomatedOrdered By: Gely Lin on 01-19-2023 Monocyte distribution width Auto (Bld) [Entitic vol] 25.73 % 0.00-20.00 [facility] Comment on above: For adults in ED, MD W > 20.0 may be associated with a higher risk of sepsis during the first 12 hrs of hospital admission Monocytes Auto (Bld) [#/Vol] Ordered By: Gely Lin on 01-19-2023 Monocytes (Bld) [#/Vol] 0.6 10*3/uL 0.0-0.8 [facility] Monocytes/100 WBC Auto (Bld) Ordered By: Gely Lin on 01-19-2023 Monocytes/100 WBC (Bld) 10.1 % . [facility] Neutrophils Auto (Bld) [#/Vo l]Ordered By: Gely Lin on 01-19-2023 Neutrophils (Bld) [#/Vol] 4.3 10*3/uL 1.8-7.7 [facility] Neutrophils/100 WBC Auto (Bl d)Ordered By: Gely Lin on 01-19-2023 Neutrophils/100 WBC (Bld) 76.6 % . [facility] No Panel InformationOrdered By: Gely Lin on 01-19-2023 Estimated GFR (CKD-EPI) > 60.0 mL/Min [facility] Creatinine Clearance (Chem 48.65 [facility] Nucleated erythrocytes [Pres ence] in Blood by Automated countOrdered By: Gely Lin on 01-19-2023 Nucleated RBC Auto Ql (Bld) 0.0 /100{WBC} 0-0.5 [facility] Platelet mean volume Auto (B ld) [Entitic vol]Ordered By: Gely Lin on 01-19-2023 Platelet mean volume (Bld) [Entitic vol] 8.2 fL 6.6-10.1 [facility] Platelet poor plasma interna tional normalized ratio (INR) by coagulation assay (relatOrdered By: Gely Lin on 01-19-2023 INR Coag (PPP) [Relative time] 1.3 {INR} [facility] Comment on above: INR Therapeutic Rang e [...] 01-19-2023 Platelets (Bld) [#/Vol] 202 10*3/uL 150-450 [facility] Potassium [Moles/volume] in Serum or PlasmaOrdered By: Gely Lin on 01-19-2023 Potassium [Moles/Vol] 3.6 mmol/L 3.5-5.1 [facility] RBC Auto (Bld) [#/Vol]Ordere d By: Gely Lin on 01-19-2023 RBC (Bld) [#/Vol] 4.35 10*6/uL 3.90-5.60 [facility] Serum or plasma anion gap de terminationOrdered By: Gely Lin on 01-19-2023 Anion gap [Moles/Vol] 13.1 mmol/L 6.0-15.0 [facility] Sodium [Moles/volume] in Ser um or PlasmaOrdered By: Gely Lin on 01-19-2023 Sodium [Moles/Vol] 136 mmol/L 136-145 [facility] Urea nitrogen [Mass/volume] in Serum or PlasmaOrdered By: Gely Lin on 01-19-2023 Urea nitrogen [Mass/Vol] 22 mg/dL 7-25 [facility] WBC Auto (Bld) [#/Vol]Ordere d By: Gely Lin on 01-19-2023 WBC (Bld) [#/Vol] 5.6 10*3/uL 4.1-10.5 [facility] Creatinine (Bld) [Mass/Vol]O rdered By: María Anderson on 01-13-2023 Creatinine [Mass/Vol] 1.0 mg/dL 0.6-1.3 [facility] Comment on above: ER/ESD physician is notified/shown all ISTAT results.Critical values may be confirmed by laboratory testing ifdeemed necessary by ER attending doctor. Alanine aminotransferase [En zymatic activity/volume] in Serum or PlasmaOrdered By: Trey العلي on 10-28-2022 ALT [Catalytic activity/Vol] 16 U/L 7-52 [facility] Albumin [Mass/volume] in Ser um or Plasma by Bromocresol green (BCG) dye binding methoOrdered By: Trey العلي on 10-28-2022 Albumin BCG dye [Mass/Vol] 3.9 g/dL 3.5-5.7 [facility] Alkaline phosphatase [Enzyma tic activity/volume] in Serum or PlasmaOrdered By: Trey العلي on 10-28-2022 ALP [Catalytic activity/Vol] 81 U/L 34-104 [facility] Aspartate aminotransferase [ Enzymatic activity/volume] in Serum or PlasmaOrdered By: Trey العلي on 10-28-2022 AST [Catalytic activity/Vol] 26 U/L 13-39 [facility] Basophils Auto (Bld) [#/Vol] Ordered By: Trey العلي on 10-28-2022 Basophils (Bld) [#/Vol] 0.0 10*3/uL 0.0-0.2 [facility] Basophils/100 WBC Auto (Bld) Ordered By: Trey العلي on 10-28-2022 Basophils/100 WBC (Bld) 0.7 % . [facility] Bilirubin.total [Mass/volume ] in Serum or PlasmaOrdered By: Trey العلي on 10-28-2022 Bilirubin [Mass/Vol] 0.5 mg/dL 0.3-1.0 [facility] Calcium [Mass/volume] in Ser um or PlasmaOrdered By: Trey العلي on 10-28-2022 Calcium [Mass/Vol] 9.0 mg/dL 8.6-10.3 [facility] Carbon dioxide, total [Moles /volume] in Serum or PlasmaOrdered By: Trey العلي on 10-28-2022 CO2 [Moles/Vol] 27.2 mmol/L 21.0-31.0 [facility] Chloride [Moles/volume] in S aime or PlasmaOrdered By: Trey العلي on 10-28-2022 Chloride [Moles/Vol] 106 mmol/L 98-107 [facility] Cholesterol [Mass/volume] in Serum or PlasmaOrdered By: Trey العلي on 10-28-2022 Cholesterol [Mass/Vol] 160 mg/dL 140-200 [facility] Comment on above: Chol less than 200 m g/dl low riskChol 201-239 mg/dl borderline riskChol 240 mg/dl and greater high risk Cholesterol in LDL Calc [Mas s/Vol]Ordered By: Trey العلي on 10-28-2022 Cholesterol in LDL [Mass/Vol] 82 mg/dL 0-100 [facility] Comment on above: LDL ATP III CLASSIFI CATIONLDL less than 100 mg/dL OptimalLDL 100-129 mg/dL Near or above optimalLDL 130-159 mg/dL Borderline highLDL 160-189 mg/dL HighLDL greater than 189 mg/dL Very high Cholesterol in VLDL Calc [Ma ss/Vol]Ordered By: Trey العلي on 10-28-2022 Cholesterol in VLDL [Mass/Vol] 14 mg/dL [facility] Creatinine [Mass/volume] in Serum or PlasmaOrdered By: Trey العلي on 10-28-2022 Creatinine [Mass/Vol] 0.96 mg/dL 0.70-1.30 [facility] Eosinophils Auto (Bld) [#/Vo l]Ordered By: Trey العلي on 10-28-2022 Eosinophils (Bld) [#/Vol] 0.1 10*3/uL 0.0-0.45 [facility] Eosinophils/100 WBC Auto (Bl d)Ordered By: Trey العلي on 10-28-2022 Eosinophils/100 WBC (Bld) 2.2 % . [facility] Erythrocyte distribution wid th Auto (RBC) [Ratio]Ordered By: Trey العلي on 10-28-2022 Erythrocyte distribution width (RBC) [Ratio] 14.6 % 12.0-14.8 [facility] Globulin Calc (S) [Mass/Vol] Ordered By: Trey العلي on 10-28-2022 Globulin (S) [Mass/Vol] 2.8 g/dL [facility] Glucose [Mass/volume] in Ser um or PlasmaOrdered By: Trey العلي on 10-28-2022 Glucose [Mass/Vol] 109 mg/dL 70-100 [facility] Comment on above: ADA recommended refe rence rangeRandom Glucose Reference Range is dependent on time and content of last meal. Glucose of more than 200 mg/dL in a nonstressed, ambulatory subject supports the diagnosis of Diabetes Mellitus. Glucose mean value [Mass/vol ume] in Blood Estimated from glycated hemoglobinOrdered By: Trey العلي on 10-28-2022 Average glucose Estimated from glycated hemoglobin (Bld) [Mass/Vol] 120 mg/dL [facility] Hematocrit Auto (Bld) [Volum e fraction]Ordered By: Trey العلي on 10-28-2022 Hematocrit (Bld) [Volume fraction] 37.7 % 38.8-50.0 [facility] Hemoglobin A1c percentageOrd ered By: Trey العلي on 10-28-2022 HbA1c (Bld) [Mass fraction] 5.8 % 4.3-5.6 [facility] Comment on above: Increased risk for d iabetes: 5.7 - 6.4diabetes: >6.4glycemic control for adults with diabetes: <7.0 Hemoglobin [Mass/volume] in BloodOrdered By: Trey العلي on 10-28-2022 Hemoglobin (Bld) [Mass/Vol] 12.5 g/dL 13.0-17.0 [facility] Leukocytes [#/volume] correc amparo for nucleated erythrocytes in Blood by Automated counOrdered By: rTey العلي on 10-28-2022 WBC corrected for nucl RBC Auto (Bld) [#/Vol] 5.1 10*3/uL 4.1-10.5 [facility] Lymphocytes Auto (Bld) [#/Vo l]Ordered By: Trey العلي on 10-28-2022 Lymphocytes (Bld) [#/Vol] 1.2 10*3/uL 1.00-4.8 [facility] Lymphocytes/100 WBC Auto (Bl d)Ordered By: Trey العلي on 10-28-2022 Lymphocytes/100 WBC (Bld) 23.6 % . [facility] MCH Auto (RBC) [Entitic mass ]Ordered By: Trey العلي on 10-28-2022 MCH (RBC) [Entitic mass] 29.6 pg 27.5-35.2 [facility] MCHC Auto (RBC) [Mass/Vol]Or dered By: Trey العلي on 10-28-2022 MCHC (RBC) [Mass/Vol] 33.2 g/dL 32.5-35.6 [facility] MCV Auto (RBC) [Entitic vol] Ordered By: Trey العلي on 10-28-2022 MCV (RBC) [Entitic vol] 89.1 fL 83.5-101 [facility] Monocytes Auto (Bld) [#/Vol] Ordered By: Trey العلي on 10-28-2022 Monocytes (Bld) [#/Vol] 0.7 10*3/uL 0.0-0.8 [facility] Monocytes/100 WBC Auto (Bld) Ordered By: Trey العلي on 10-28-2022 Monocytes/100 WBC (Bld) 14.3 % . [facility] Neutrophils Auto (Bld) [#/Vo l]Ordered By: Trey العلي on 10-28-2022 Neutrophils (Bld) [#/Vol] 3.0 10*3/uL 1.8-7.7 [facility] Neutrophils/100 WBC Auto (Bl d)Ordered By: Trey العلي on 10-28-2022 Neutrophils/100 WBC (Bld) 59.2 % . [facility] No Panel InformationOrdered By: Trey العلي on 10-28-2022 Estimated GFR (CKD-EPI) > 60.0 mL/Min [facility] Creatinine Clearance (Chem N/A [facility] Nucleated erythrocytes [Pres ence] in Blood by Automated countOrdered By: Trey العلي on 10-28-2022 Nucleated RBC Auto Ql (Bld) 0.0 /100{WBC} 0-0.5 [facility] Platelet mean volume Auto (B ld) [Entitic vol]Ordered By: Trey العلي on 10-28-2022 Platelet mean volume (Bld) [Entitic vol] 8.5 fL 6.6-10.1 [facility] Platelets Auto (Bld) [#/Vol] Ordered By: Trey العلي on 10-28-2022 Platelets (Bld) [#/Vol] 160 10*3/uL 150-450 [facility] Potassium [Moles/volume] in Serum or PlasmaOrdered By: Trey العلي on 10-28-2022 Potassium [Moles/Vol] 4.2 mmol/L 3.5-5.1 [facility] Protein [Mass/volume] in Ser um or PlasmaOrdered By: Trey العلي on 10-28-2022 Protein [Mass/Vol] 6.7 g/dL 6.4-8.9 [facility] RBC Auto (Bld) [#/Vol]Ordere d By: Trey العلي on 10-28-2022 RBC (Bld) [#/Vol] 4.23 10*6/uL 3.90-5.60 [facility] Serum or plasma albumin/glob ulin mass ratioOrdered By: Trey العلي on 10-28-2022 Albumin/Globulin [Mass ratio] 1.4 {ratio} [facility] Serum or plasma anion gap de terminationOrdered By: Trey العلي on 10-28-2022 Anion gap [Moles/Vol] 13.0 mmol/L 6.0-15.0 [facility] Serum or plasma high density lipoprotein (HDL) cholesterol measurementOrdered By: Trey العلي on 10-28-2022 Cholesterol in HDL [Mass/Vol] 64 mg/dL 29-71 [facility] Comment on above: HDL CHOL ATP-III CLA SSIFICATION Cardiovascular RiskHDL > or equal to 60 mg/dL LOWHDL < 40 mg/dL HIGH Serum or plasma total choles terol/high density lipoprotein (HDL) cholesterol mass ratOrdered By: Trey العلي on 10-28-2022 Cholesterol.total/Chol esterol in HDL [Mass ratio] 2.5 {ratio} <5.0 [facility] Sodium [Moles/volume] in Ser um or PlasmaOrdered By: Trey العلي on 10-28-2022 Sodium [Moles/Vol] 142 mmol/L 136-145 [facility] Triglyceride [Mass/volume] i n Serum or PlasmaOrdered By: Trey العلي on 10-28-2022 Triglyceride [Mass/Vol] 70 mg/dL 0-149 [facility] Comment on above: TRIG ATP III CLASSIF ICATIONTRIG less than 150 mg/dL NormalTRIG 150-199 mg/dL Borderline highTRIG 200-500 mg/dL High TRIG greater than 500 mg/dL Very highStandard traceable to the Center for Disease Conrtrol and Prevention (CDC) test method. Urate [Mass/volume] in Serum or PlasmaOrdered By: Trey العلي on 10-28-2022 Urate [Mass/Vol] 7.5 mg/dL 2.4-7.6 [facility] Urea nitrogen [Mass/volume] in Serum or PlasmaOrdered By: Trey العلي on 10-28-2022 Urea nitrogen [Mass/Vol] 24 mg/dL 7-25 [facility] WBC Auto (Bld) [#/Vol]Ordere d By: Trey العلي on 10-28-2022 WBC (Bld) [#/Vol] 5.1 10*3/uL 4.1-10.5 [facility] BNPon 10-08-2022 Natriuretic peptide B (Bld) [Mass/Vol] 1354.0 pg/mL Normal <=1,800.0 [facility] Comment on above: Performed By: #### H STROPN, BNP, CK, CMP #### [facility] Laboratory [address] [place], [place] [address] Dr. Pedro Degroot CBC AUTO DIFFon 10-08-2022 BASO # 0.0 103/ul Normal 0.0-0.1 [facility] Comment on above: Performed By: #### C BC ####[facility] [address] [place] [address]Dr. Pedro Degroot Basophils/100 WBC (Bld) 0.8 % Normal 0.2-2.0 [facility] Comment on above: Performed By: #### C BC ####[facility] [address] [place], [place] [address]Dr. Pedro Degroot EO # 0.1 103/ul Normal 0.0-0.7 [facility] Comment on above: Performed By: #### C BC ####[facility] [address] [place], [place] [address]Dr. Pedro Degroot Eosinophils/100 WBC (Bld) 1.7 % Normal 0.9-7.0 [facility] Comment on above: Performed By: #### C BC ####[facility] By[address]we[address] [place], [place] [address]Dr. Pedro Degroot Erythrocyte distribution width (RBC) [Ratio] 14.1 % Normal 11.0-15.0 [facility] Comment on above: Performed By: #### C BC ####[facility] [address] [place] [address]Dr. Pedro Degroot Hematocrit (Bld) [Volume fraction] 40.0 % Critically low 42.0-54.0 [facility] Comment on above: Performed By: #### C BC ####[facility] [address] [place], [place] [address]DrRachel Degroot Hemoglobin (Bld) [Mass/Vol] 12.7 g/dL Critically low 14.0-18.0 [facility] Comment on above: Performed By: #### C BC ####[facility] [address] [place] [address]Dr. Pedro Degroot IG # 0.06 10e3/ul Critically high 0.00-0.[address] [facility] Comment on above: Performed By: #### C BC ####[facility] [address] [place] [address]Dr. Pedro Degroot IG % 1.2 % Critically high 0.0-0.5 [facility] Comment on above: Performed By: #### C BC ####[facility] [address] [place], [place] [address]DrRachel Degroot LYMPH # 0.9 103/ul Critically low 1.2-3.8 [facility] Comment on above: Performed By: #### C BC ####[facility] [address] [place], [place] [address]Dr. Pedro Degroot Lymphocytes/100 WBC (Bld) 17.6 % Critically low 20.5-60.0 [facility] Comment on above: Performed By: #### C BC ####[facility] [address] [place], [place] [address]DrRachel Degroot MANUAL DIFF REQ NO Normal [facility] Comment on above: Performed By: #### C BC ####[facility] [address] [place], [place] [address]Dr. Pedro Degroot MCH (RBC) [Entitic mass] 29.1 pg Normal 25.9-34.0 [facility] Comment on above: Performed By: #### C BC ####[facility] T[address] [place], [place] [address]Dr. Pedro Degroot MCHC (RBC) [Mass/Vol] 31.8 g/dL Normal 29.9-35.2 [facility] Comment on above: Performed By: #### C BC ####[facility] E[address] [place], [place] [address]DrRachel Degroot MCV (RBC) [Entitic vol] 91.5 fL Normal 80.0-94.0 [facility] Comment on above: Performed By: #### C BC ####[facility] [address] [place] [address] Pedro Degroot MONO # 0.7 103/ul Normal 0.3-0.8 [facility] Comment on above: Performed By: #### C BC ####[facility] K[address] [place], [place] [address]DrRachel Pedro Degroot Monocytes/100 WBC (Bld) 12.6 % Critically high 1.7-12.0 [facility] Comment on above: Performed By: #### C BC ####[facility] L[address] [place], [place] [address]DrRachel Pedro Degroot NEUT # 3.4 103/ul Normal 1.4-6.5 [facility] Comment on above: Performed By: #### C BC ####[facility] Y[address] [place], [place] [address]DrRachel Pedro Degroot Neutrophils/100 WBC (Bld) 66.1 % Normal 43.0-75.0 [facility] Comment on above: Performed By: #### C BC ####[facility] I[address] [place], [place] [address]DrRachel Pedro Degroot Platelet mean volume (Bld) [Entitic vol] 10.8 fL Normal 9.5-13.5 [facility] Comment on above: Performed By: #### C BC ####[facility] [address] [place], [place] [address]DrRachel Pedro Zane PLT 170 103/ul Normal 150-450 [facility] Comment on above: Performed By: #### C BC ####[facility] [address] [place], [place] [address]DrRachel Pedro Zane RBC 4.37 106/ul Critically low 4.70-6.10 [facility] Comment on above: Performed By: #### C BC ####[facility] [address] [place], [place] [address]DrRachel Mancillaaki Degroot WBC 5.2 103/ul Normal 4.0-11.0 [facility] Comment on above: Performed By: #### C BC ####[facility] [address] [place], [place] [address]FrRachel Degroot CPKon 10-08-2022 CK [Catalytic activity/Vol] 89 U/L Normal 39-308 [facility] Comment on above: Performed By: #### H STROPN, BNP, CK, CMP ####[facility] [address] [place], [place] [address]. [address] STROKE HEAD WOon 10-09-19 CT STROKE [...] FURTHER ASSESS CLINICALLY WARRANTED Electronically authenticated by: KATHLEEN MATHIS Date: 2022-10-08 14:12 Normal [facility] PH VENOUS BLOODon 10-08-2022 PCO2 VENOUS 49.9 mmHg Normal 40.0-52.0 [facility] Comment on above: Performed By: #### P HVEN #### [facility] Laboratory [address] [place] [address] [address] Pedro Degroot pH VENOUS 7.348 Normal 7.330-7.43 0 [facility] Comment on above: Performed By: #### P HVEN #### [facility] Laboratory [address] [place] [address] [address] Pedro Degroot POINT OF CARE GLUCOSEon 09-14 Glucose [Mass/Vol] 106 mg/dL Normal 74-106 [facility] Comment on above: Performed By: #### P OCGLUC #### [facility] [address] [place] [address] [address] Pedro Degroot PROF 14(COMP METB)on 023 Albumin [Mass/Vol] 3.7 g/dL Normal 3.4-5.0 [facility] Comment on above: Performed By: #### H STROPN, BNP, CK, CMP #### [facility] [address] [place] [address] [address] Pedro Degroot Albumin/Globulin [Mass ratio] 0.9 {ratio} Normal [facility] Comment on above: Performed By: #### H STROPN, BNP, CK, CMP #### [facility] Laboratory [address] [place] [address] Dr. Pedro Degroot ALP [Catalytic activity/Vol] 99 U/L Normal 46-116 [facility] Comment on above: Performed By: #### H STROPN, BNP, CK, CMP #### [facility] [address] [place] [address] Dr. Pedro Degroot ALT [Catalytic activity/Vol] 30 U/L Normal 16-63 [facility] Comment on above: Performed By: #### H STROPN, BNP, CK, CMP #### [facility] [address] [place] [address] Dr. Pedro Degroot Anion gap [Moles/Vol] 13.6 mmol/L Normal [facility] Comment on above: Performed By: #### H STROPN, BNP, CK, CMP #### [facility] [address] [place] [address] Dr. Pedro Degroot AST [Catalytic activity/Vol] 35 U/L Normal 15-37 [facility] Comment on above: Performed By: #### H STROPN, BNP, CK, CMP #### [facility] [address] [place] [address] Dr. Pedro Degroot Bilirubin [Mass/Vol] 0.4 mg/dL Normal 0.2-1.0 [facility] Comment on above: Performed By: #### H STROPN, BNP, CK, CMP #### [facility] [address] [place] [address] [address] Pedro Degroot Calcium [Mass/Vol] 9.7 mg/dL Normal 8.5-10.1 [facility] Comment on above: Performed By: #### H STROPN, BNP, CK, CMP #### [facility] [address] [place] [address] [address] Pedro Degroot Chloride [Moles/Vol] 103 mmol/L Normal 98-107 [facility] Comment on above: Performed By: #### H STROPN, BNP, CK, CMP #### [facility] [address] [place] [address] [address] Pedro Degroot CO2 [Moles/Vol] 27.8 mmol/L Normal 21.0-32.0 [facility] Comment on above: Performed By: #### H STROPN, BNP, CK, CMP #### [facility] [address] [place] [address] [address] Pedro Degroot Creatinine [Mass/Vol] 0.86 mg/dL Normal 0.70-1.30 [facility] Comment on above: Performed By: #### H STROPN, BNP, CK, CMP #### [facility] [address] [place] [address] [address] Pedro Degroot EGFR-AF MALTESE >60 Normal >=60 [facility] Comment on above: Performed By: #### H STROPN, BNP, CK, CMP #### [facility] [address] [place] [address] [address] Pedro Degroot EGFR-NON AF MALTESE >60 Normal >=60 [facility] Comment on above: Performed By: #### H STROPN, BNP, CK, CMP #### [facility] [address] [place] [address] [address] Pedro Degroot Globulin (S) [Mass/Vol] 4.2 g/dL Normal [facility] Comment on above: Performed By: #### H STROPN, BNP, CK, CMP #### [facility] [address] [place] [address] [address] Pedro Degroot Glucose [Mass/Vol] 110 mg/dL Critically high 74-106 [facility] Comment on above: Performed By: #### H STROPN, BNP, CK, CMP #### [facility] Laboratory [address] [place] [address] [address] Pedro Degroot Potassium [Moles/Vol] 4.4 mmol/L Normal 3.5-5.1 [facility] Comment on above: Performed By: #### H STROPN, BNP, CK, CMP #### [facility] [address] [place] [address] [address] Pedro Degroot Protein [Mass/Vol] 7.9 g/dL Normal 6.4-8.2 [facility] Comment on above: Performed By: #### H STROPN, BNP, CK, CMP #### [facility] [address] [place] [address] Dr. Pedro Degroot Sodium [Moles/Vol] 140 mmol/L Normal 136-145 [facility] Comment on above: Performed By: #### H STROPN, BNP, CK, CMP #### [facility] [address] [place] [address] Dr. Pedro Degroot Urea nitrogen [Mass/Vol] 27.0 mg/dL Critically high 7.0-18.0 [facility] Comment on above: Performed By: #### H STROPN, BNP, CK, CMP #### [facility] [address] [place] [address] Dr. Pedro Degroot Urea nitrogen/Creatinine [Mass ratio] 31.4 mg/mg Normal [facility] Comment on above: Performed By: #### H STROPN, BNP, CK, CMP #### [facility] Laboratory [address] [place] [address] Dr. Pedro Degroot PROTIMEon 10-08-2022 INR Coag (PPP) [Relative time] 1.62 {INR} Normal [facility] Comment on above: Performed By: #### P T #### [facility] Laboratory [address] [place] [address] Dr. Pedro Degroot INR GUIDELINES SEE BELOW Normal [facility] Comment on above: Result Comment: JARVIS RED INR: 2.0 - 3.0 CONDITIONS NOT LISTED BELOW 2.5 - 3.5 FOR PROSTHETIC HEART VALVE REPLACEMENT 2.5 - 3.5 RECURRENT THROMBOSIS Performed By: #### P T #### [facility] Laboratory [address] [place] [address] [address] Pedro Degroot PT Coag (PPP) [Time] 16.7 s Critically high 9.0-11.6 [facility] Comment on above: Performed By: #### P T #### [facility] [address] [place] [address] [address] Pedro Degroot TROPONIN, HIGH SENSITIVITYon 10-08-2022 HSTROP 21.3 pg/mL Normal 4.0-76.1 [facility] Comment on above: Result Comment: CUT- OFF POINTS HAVE BEEN ESTABLISHED BASED ON THE FOURTH UNIVERSAL DEFINITIONS OF MYOCARDIAL INFARCTION. THE UPPER REFERENCE LIMIT (URL) OF TROPONIN, DEFINED THE 99TH PERCENTILE OF cTnI DISTRIBUTION IN A REFERENCE POPULATION, HAS BEEN CONFIRMED THE DECISION THRESHOLD FOR MD DIAGNOSIS. Performed By: #### H STROPN, BNP, CK, CMP #### [facility] Laboratory [address] [place] [address] [address] Pedro Degroot POINT OF CARE GLUCOSEon Glucose [Mass/Vol] 111 mg/dL Critically high 74-106 [facility] Comment on above: Performed By: #### P OCGLUC ####[facility] [address] [place] [address]Dr. Pedro Degroot PROTIMEon 06-17-2022 INR Coag (PPP) [Relative time] 1.14 {INR} Normal [facility] Comment on above: Performed By: #### P T #### [facility] Laboratory [address] [place] [address] [address] Pedro Degroot INR GUIDELINES SEE BELOW Normal [facility] Comment on above: Result Comment: JARVIS RED INR: 2.0 - 3.0 CONDITIONS NOT LISTED BELOW 2.5 - 3.5 FOR PROSTHETIC HEART VALVE REPLACEMENT 2.5 - 3.5 RECURRENT THROMBOSIS Performed By: #### P T #### [facility] Laboratory [address] [place] [address] Dr. Pedro Degroot PT Coag (PPP) [Time] 12.2 s Critically high 9.0-11.6 [facility] Comment on above: Performed By: #### P T #### [facility] Laboratory [address] [place], [place] [address] Dr. Pedro Degroot POINT OF CARE GLUCOSEon 03-16 Glucose [Mass/Vol] 104 mg/dL Normal 74-106 [facility] Comment on above: Performed By: #### P OCGLUC ####[facility] [address] [place], [place] [address]CcDr. Pedro Degroot PROTIMEon 04-08-2022 INR Coag (PPP) [Relative time] 1.08 {INR} Normal [facility] Comment on above: Performed By: #### P T ####[facility] [address] [place] [id number]. Pedro Degroot INR GUIDELINES SEE BELOW Normal [facility] Comment on above: Result Comment: JARVIS RED INR: 2.0 - 3.0 CONDITIONS NOT LISTED BELOW 2.5 - 3.5 FOR PROSTHETIC HEART VALVE REPLACEMENT 2.5 - 3.5 RECURRENT THROMBOSIS Performed By: #### P T ####[facility] [address] [place], [place] [address]YyDr. Pedro Degroot PT Coag (PPP) [Time] 11.6 s Normal 9.0-11.6 [facility] Comment on above: Performed By: #### P T ####[facility] [address] [place], [place] [address]SlDr. Pedro Degroot XR Shoulder Complete Right*o n [...] by María Madison on 03/31/2022 1526 Normal [facility] [employer] Crewman Echocardiogramon 02-20-2022 [address], [address], [place] [address] TRANSTHORACIC ECHOCARDIOGRAM REPORT Patient Name: FANI Johnson MAGGI [place] Physician: [id number] Bonita Kingsley MD, [facility] Study Date: 02/20/2022 Referring [id number] BONITA KINGSLEY Physician: MRN/PID: [id number] PCP: Fer العلي MD Accession/Order#: [id number] [facility] Location: Date of : 1935 Fellow: Gender: M Nurse: 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: Karly Lin RDCS, RVT Height: 175.26 cm CC Report to: Weight: 80.29 kg Study Type: Echocardiogram BSA: 1.96 m2 Blood Pressure: 152 /88 mmHg Diagnosis/ICD: 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; 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; 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, Former Smoker, Overweight, Pulmonary Hypertension Procedure/CPT: Echo Complete w Full Doppler-[id number] Study Detail: The following Echo studies were [...] mmHg PIEDV: 1.87 m/s PADP: 16.9 mmHg [id number] Bonita Kingsley MD, FACC Electronically signed on 02/25/2022 at 5:39:24 PM Final Normal [facility] Tobacco Screening.on 022 Adult depression screening assessment No [facility] y 250 DO Work Phone: Fall risk assessment a) No falls within the last year [facility] y 250 DO Work Phone: Tobacco use status [facility] b) No [facility] y 250 DO Work Phone: Bacteria identified Aer cx N om (Unsp spec)Ordered By: Rubio Pineda on 02-05-2022 Superficial Wound Culture Proteus mirabilis [facility] XR LSPINE W_OBLS AND FLEX_EX Ton 01-02-2022 [...] ORLY WOLFE Date: 2022-01-02 17:00 Normal [facility] Tobacco Screening.on 021 Fall risk assessment b) One or more fall s in the last year [facility] Readmill y 250 DO Work Phone: Tobacco use status [facility]PHS b) No [facility] y 250 DO Work Phone: XR hip RT min 2V(w/wo pelvis )*on 03-19-2021 XR hip RT min 2V(w/wo pelvis)* [facility] [employer] Other XR hip RT min 2V(w/wo pelvis)* [facility] [employer] Other XR hip RT min 2V(w/wo pelvis)* [address] [place] [address] [employer] Other XR hip RT min 2V(w/wo pelvis)* [place] [id number] [employer] Other XR hip RT min 2V(w/wo pelvis)* XRay Report [employer] Other XR hip RT min 2V(w/wo pelvis)* Signed [employer] Other XR hip RT min 2V(w/wo pelvis)* Patient: Fani Chua MR#: [id number] [employer] Other XR hip RT min 2V(w/wo pelvis)* : 1935 Acct:[id number] [employer] Other XR hip RT min 2V(w/wo pelvis)* Age/Sex: 85 / M ADM Date: 03/19/21 [employer] Other XR hip RT min 2V(w/wo pelvis)* Loc: [facility] Room: Type: [facility] [employer] Other XR hip RT min 2V(w/wo pelvis)* Attending Dr: Fani Johnston MD [employer] Other XR hip RT min 2V(w/wo pelvis)* Ordering Provider: Fani Johnston MD [employer] Other XR hip RT min 2V(w/wo pelvis)* Date of Service: 03/19/21 [employer] Other XR hip RT min 2V(w/wo pelvis)* XR/XR hip RT min 2V(w/wo pelvis)*: History of total replacement of right [employer] Other XR hip RT min 2V(w/wo pelvis)* hip [employer] Other XR hip RT min 2V(w/wo pelvis)* Copies to: Fani Johnston MD [employer] Other XR hip RT min 2V(w/wo pelvis)* RIGHT HIP - 2 views: [employer] Other XR hip RT min 2V(w/wo pelvis)* CLINICAL HISTORY: Follow-up knee replacement. [employer] Other XR hip RT min 2V(w/wo pelvis)* COMPARISON: 01/30/2021 [facility] Other XR hip RT min 2V(w/wo pelvis)* AP and frog-lateral views were obtained. There is osteopenia. A hip prosthesis is again visualized. [employer] Other XR hip RT min 2V(w/wo pelvis)* The hardware appears intact and unchanged in prior. There is no developing fracture or dislocation. [employer] Other XR hip RT min 2V(w/wo pelvis)* There are no significant soft tissue abnormalities. Hemostasis clips are again visualized within the [employer] Other XR hip RT min 2V(w/wo pelvis)* pelvis and near the greater trochanter. [employer] Other XR hip RT min 2V(w/wo pelvis)* XR/XR hip RT min 2V(w/wo pelvis)* [employer] Other XR hip RT min 2V(w/wo pelvis)* IMPRESSION: [employer] Other XR hip RT min 2V(w/wo pelvis)* STABLE APPEARANCE OF HIP REPLACEMENT. [employer] Other XR hip RT min 2V(w/wo pelvis)* Impression dictated by: Cyn Llamas M.D.03/19/2021 12:46 PM [employer] Other XR hip RT min 2V(w/wo pelvis)* Dictation Location: [facility]-- [employer] Other XR hip RT min 2V(w/wo pelvis)* Transcribed By: HENRRY 03/19/21 1246 [employer] Other XR hip RT min 2V(w/wo pelvis)* Dictated By: Cyn Llamas MD 03/19/21 1245 [employer] Other XR hip RT min 2V(w/wo pelvis)* Signed By: [employer] Other XR hip RT min 2V(w/wo pelvis)* 03/19/21 1246 [employer] Other Complete Blood Count + Diffe carli 02-24-2020 Basophils/100 WBC (Bld) 0.7 % 0.0 - 2.0 [facility] [address] [place] Work Phone: Erythrocyte distribution width (RBC) [Ratio] 13.3 % See Below [facility] [address] [place] Work Phone: Comment on above: Reference Range: 11. 5 - 14.5 Hematocrit (Bld) [Volume fraction] 39.8 % below low threshold See Below [facility] Dominick [address] [place] Work Phone: Comment on above: Reference Range: 41. 0 - 52.0 Hemoglobin (Bld) [Mass/Vol] 12.5 g/dL below low threshold See Below [facility] Dominick [address] [place] Work Phone: Comment on above: Reference Range: 13. 5 - 17.5 Lymphocytes/100 WBC (Bld) 18.0 % See Below [facility] Domin[address] [place] Work Phone: Comment on above: Reference Range: 13. 0 - 44.0 MCHC (RBC) [Mass/Vol] 31.4 g/dL below low threshold See Below [facility] Domin[address] [place] Work Phone: Comment on above: Reference Range: 32. 0 - 36.0 MCV (RBC) [Entitic vol] 96 fL 80 - 100 [facility] Domin[address] [place] Work Phone: Monocytes/100 WBC (Bld) 11.3 % 2.0 - 10.0 [facility] Dominick [address] [place] Work Phone: Neutrophils/100 WBC (Bld) 66.1 % See Below [facility] Dominick [address] [place] Work Phone: Comment on above: Reference Range: 40. 0 - 80.0 Platelets (Bld) [#/Vol] 268 10*3/uL 150 - 450 [facility] Domin[address] [place] Work Phone: RBC (Bld) [#/Vol] 4.14 {x10E12/L} below low threshold See Below [facility] Dominick [address] [place] Work Phone: Comment on above: Reference Range: 4.5 0 - 5.90 WBC (Bld) [#/Vol] 8.7 10*3/uL 4.4 - 11.3 [facility] Dominick [address] [place] Work Phone: Complete Blood Count + Differential 0.6 % 0.0 - 0.9 [facility] Dominick [address] [place] Work Phone: Comment on above: Immature Granulocyte Count (IG) includes promyelocytes, myelocytes and metamyelocytes but does not include bands. Percent differential counts (%) should be interpreted in the context of the absolute cell counts (cells/L). Complete Blood Count + Differential 3.3 % 0.0 - 6.0 [facility] Dominick [address] [place] Work Phone: Complete Blood Count + Differential 5.72 {x10E9/L} above high threshold See Below [facility] [address] [place] Work Phone: Comment on above: Reference Range: 1.6 0 - 5.50 Complete Blood Count + Differential 1.56 {x10E9/L} See Below [facility] [address] [place] Work Phone: Comment on above: Reference Range: 0.8 0 - 3.00 Complete Blood Count + Differential 0.98 {x10E9/L} above high threshold See Below [facility] [address] [place] Work Phone: Comment on above: Reference Range: 0.0 5 - 0.80 Complete Blood Count + Differential 0.29 {x10E9/L} See Below [facility] [address] [place] Work Phone: Comment on above: Reference Range: 0.0 0 - 0.40 Complete Blood Count + Differential 0.06 {x10E9/L} See Below [facility] [address] [place] Work Phone: Comment on above: Reference Range: 0.0 0 - 0.10 Laboratory - Chemistry and C hemistry - challengeon 02-24-2020 Anion gap [Moles/Vol] 14 mmol/L 10 - 20 [facility] [employer] [address] [place] Work Phone: [phone] Calcium [Mass/Vol] 9.7 mg/dL 8.6 - 10.3 [facility] diology -[facility] [place] [employer] [address] [place] Work Phone: [phone] Chloride [Moles/Vol] 103 mmol/L 98 - 107 [facility] ardiology -[facility] [place] [address] [place] Work Phone: [phone] CO2 [Moles/Vol] 29 mmol/L 21 - 32 [facility]-Cardio logy -[facility] [employer] [address] [place] Work Phone: [phone] Creatinine [Mass/Vol] 1.04 mg/dL See Below [facility] [address] [place] Work Phone: [phone] Comment on above: Reference Range: 0.5 0 - 1.30 Glucose [Mass/Vol] 102 mg/dL above high threshold 74 - 99 [facility] [place] [employer] [address] [place] Work Phone: [phone] Potassium [Moles/Vol] 4.7 mmol/L 3.5 - 5.3 [facility] [employer] [address] [place] Work Phone: [phone] Sodium [Moles/Vol] 141 mmol/L 136 - 145 [facility] diology -[facility] [place] [employer] [address] [place] Work Phone: [phone] Urea nitrogen [Mass/Vol] 26 mg/dL above high threshold 6 - 23 [facility] [address] [place] Work Phone: [phone] Laboratory - Coagulationon 0 02-24-2020 INR Coag (PPP) [Relative time] 2.2 {INR} above high threshold 0.9 - 1.1 [facility] [employer] [address] [place] Work Phone: [phone] PT Coag (PPP) [Time] 26.0 s above high threshold See Below [facility] [employer] [address] [place] Work Phone: [phone] Comment on above: Reference Range: 10. 1 - 13.3 No Panel Informationon 02-23 >60 >60 [facility] [address] [place] Work Phone: Comment on above: CALCULATIONS OF INA MATED GFR ARE PERFORMED USING THE MDRD STUDY EQUATION FOR THE IDMS-TRACEABLE CREATININE METHODS. CLIN CHEM 2007;53:766-72 CT TAVR Full Contrast CH/ABD /Pelvison 02-15-2020 CT TAVR Full Contrast CH/ABD/Pelvis Interpreted by: LAM BROUSSARD02/21/20 08:59Addendum BeginsMRN: [id number] Name: FANI CHUA ADDENDUM:NON-CARDIOVASCUL AR CHEST FINDINGS [...] ABDOMENOR PELVIS OUTSIDE THE CARDIOVASCULAR SYSTEMAddendum EndsMRN: [id number] Name: FANI CHUA STUDY: CT TAVR FULL [...] trileaflet aortic valve. Aortic valve calcium score 43144. Aortic annulus 25 x 35mm3. 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 Moderate atherosclerosis of abdominal aorta without evidence ofaneurysm or dissection. Reading Tracer Lathe Set Up Operator: Dr. Isai Baxter, Date: 02/17/2020 2:29 pmElectronically signed by: LAM BROUSSARD 02/21/20 08:59 Normal [facility] [address] [place] Work Phone: Comment on above: ORDER REVISED TO A T H CT TAVR FULL CONTRAST CHEST/ABD/PELVIS BY RADIOLOGIST; Original Order Number: [id number] Vital Signs Date Time Vital Sign Value Performing Clinician Facility 11-17-2024 10:51-0400 Body mass index (BMI) [Ratio] 22.89 kg/m2 María Anderson MD Work Phone: [facility] 11-17-2024 10:51-0400 Body weight 70.31 kg María Anderson MD Work Phone: [facility] 11-17-2024 10:51-0400 Diastolic blood pressure 64 mm[Hg] María Anderson MD Work Phone: [facility] 11-17-2024 10:51-0400 Heart rate 81 /min María Anderson MD Work Phone: [facility] 11-17-2024 10:51-0400 SaO2% (BldA) [Mass fraction] 97 % María Anderson MD Work Phone: [facility] 11-17-2024 10:51-0400 Systolic blood pressure 118 mm[Hg] María Anderson MD Work Phone: [facility] 10-04-2024 13:05-0400 Diastolic blood pressure 80 mm[Hg] Maria Fernanda Didion [employer] Work Phone: [facility] 10-04-2024 13:05-0400 Heart rate 74 /min Maria Fernanda Didion [employer] Work Phone: [facility] 10-04-2024 13:05-0400 Respiratory rate 16 /min Maria Fernanda Didion [employer] Work Phone: [facility] 10-04-2024 13:05-0400 SaO2% (BldA) [Mass fraction] 98 % Maria Fernanda Didion [employer] Work Phone: [facility] 10-04-2024 13:05-0400 Systolic blood pressure 120 mm[Hg] Maria Fernanda Didion [employer] Work Phone: [facility] 06-15-2024 17:10-0500 Diastolic blood pressure 71 mm[Hg] María Anderson MD Work Phone: [facility] 06-15-2024 17:10-0500 Heart rate 79 /min María Anderson MD Work Phone: [facility] 06-15-2024 17:10-0500 Respiratory rate 20 /min María Anderson MD Work Phone: [facility] 06-15-2024 17:10-0500 Systolic blood pressure 110 mm[Hg] María Anderson MD Work Phone: [facility] 06-15-2024 17:00-0500 SaO2% (BldA) [Mass fraction] 94 % María Anderson MD Work Phone: [facility] 06-15-2024 15:06-0500 Body temperature 99.6 [degF] María Anderson MD Work Phone: [facility] 06-15-2024 13:39-0500 Body height 175.26 cm María Anderson MD Work Phone: [facility] 06-15-2024 13:39-0500 Body weight 73.4 kg María Anderson MD Work Phone: [facility] 06-13-2024 14:34-0500 Body mass index (BMI) [Ratio] 24.07 kg/m2 Rosalinda Risaliti [employer] Work Phone: [facility] 06-13-2024 14:34-0500 Body weight 73.94 kg Rosalinda Risaliti [employer] Work Phone: [facility] 06-13-2024 14:34-0500 Diastolic blood pressure 80 mm[Hg] Rosalinda Risaliti [employer] Work Phone: [facility] 06-13-2024 14:34-0500 Heart rate 64 /min Rosalinda Risaliti [employer] Work Phone: [facility] 06-13-2024 14:34-0500 SaO2% (BldA) [Mass fraction] 94 % Rosalinda Risaliti [employer] Work Phone: [facility] 06-13-2024 14:34-0500 Systolic blood pressure 120 mm[Hg] Rosalinda Risaliti [employer] Work Phone: [facility] 05-18-2024 09:41-0500 Diastolic blood pressure 64 mm[Hg] Bonita Kingsley MD Work Phone: [facility] 05-18-2024 09:41-0500 Systolic blood pressure 120 mm[Hg] Bonita Kingsley MD Work Phone: [facility] 05-18-2024 09:38-0500 Body height 175.3 cm Bonita Kingsley MD Work Phone: [facility] 05-18-2024 09:38-0500 Body mass index (BMI) [Ratio] 24.19 kg/m2 Bonita Kingsley MD Work Phone: [facility] 05-18-2024 09:38-0500 Body weight 74.3 kg Bonita Kingsley MD Work Phone: [facility] 05-18-2024 09:38-0500 Heart rate 62 /min Bonita Kingsley MD Work Phone: [facility] 04-18-2024 14:08-0500 Body height 175.3 cm Bonita Kingsley MD Work Phone: [facility] 04-18-2024 14:08-0500 Body mass index (BMI) [Ratio] 23.98 kg/m2 Bonita Kingsley MD Work Phone: [facility] 04-18-2024 14:08-0500 Body weight 73.66 kg Bonita Kingsley MD Work Phone: [facility] 04-18-2024 14:08-0500 Diastolic blood pressure 60 mm[Hg] Bonita Kingsley MD Work Phone: [facility] 04-18-2024 14:08-0500 Heart rate 72 /min Bonita Kingsley MD Work Phone: [facility] 04-18-2024 14:08-0500 Systolic blood pressure 110 mm[Hg] Bonita Kingsley MD Work Phone: [facility] 04-13-2024 13:32-0400 Body height 175.[address] 04-13-2024 13:32-0400 Body mass index (BMI) [Ratio] 24.66 kg/m2 [address] 04-13-2024 13:32-0400 Body weight 75.[address] 04-13-2024 13:32-0400 Diastolic blood pressure 76 mm[Hg] [address] 04-13-2024 13:32-0400 Systolic blood pressure 134 mm[Hg] [address] 04-06-2024 14:40-0400 Body temperature 97.3 [degF] Maria Fernanda Palmerion [employer] Work Phone: [facility] 04-06-2024 14:40-0400 Diastolic blood pressure 64 mm[Hg] Maria Fernanda Didion [employer] Work Phone: [facility] 04-06-2024 14:40-0400 Heart rate 61 /min Maria Fernanda Palmerion [employer] Work Phone: [facility] 04-06-2024 14:40-0400 SaO2% (BldA) [Mass fraction] 91 % Maria Fernanda Didion [employer] Work Phone: [facility] 04-06-2024 14:40-0400 Systolic blood pressure 130 mm[Hg] Maria Fernanda Didion [employer] Work Phone: [facility] 03-30-2024 13:36-0400 Body height 175.3 cm Petr Pan [employer] Work Phone: [facility] 03-30-2024 13:36-0400 Body mass index (BMI) [Ratio] 23.92 kg/m2 Petr Jailenenagel [employer] Work Phone: [facility] 03-30-2024 13:36-0400 Body weight 73.48 kg Petr Keniagel [employer] Work Phone: [facility] 03-30-2024 13:36-0400 Diastolic blood pressure 83 mm[Hg] Petr Jailenenagel [employer] Work Phone: [facility] 03-30-2024 13:36-0400 Heart rate 79 /min Petr Windnagel [employer] Work Phone: [facility] 03-30-2024 13:36-0400 Systolic blood pressure 145 mm[Hg] Petr Perla [employer] Work Phone: [facility] 03-07-2024 14:08-0400 Diastolic blood pressure 78 mm[Hg] Maria Fernanda Laws [employer] Work Phone: [facility] 03-07-2024 14:08-0400 Heart rate 83 /min Maria Fernanda Didion [employer] Work Phone: [facility] 03-07-2024 14:08-0400 SaO2% (BldA) [Mass fraction] 96 % Maria Fernanda Didion [employer] Work Phone: [facility] 03-07-2024 14:08-0400 Systolic blood pressure 138 mm[Hg] Maria Fernanda Palmerion [employer] Work Phone: [facility] 02-27-2024 15:42-0400 Body temperature 97.9 [degF] MD María Anderson Work Phone: [facility] 02-27-2024 15:42-0400 Diastolic blood pressure 79 mm[Hg] MD María Anderson Work Phone: [facility] 02-27-2024 15:42-0400 Heart rate 61 /min MD María Anderson Work Phone: [facility] 02-27-2024 15:42-0400 Respiratory rate 18 /min MD María Anderson Work Phone: [facility] 02-27-2024 15:42-0400 SaO2% (BldA) [Mass fraction] 93 % MD María Anderson Work Phone: [facility] 02-27-2024 15:42-0400 Systolic blood pressure 152 mm[Hg] MD María Anderson Work Phone: [facility] 02-27-2024 06:00-0400 Body weight 75.2 kg MD María Anderson Work Phone: [facility] 02-26-2024 13:30-0400 Diastolic blood pressure 65 mm[Hg] MD María Anderson Work Phone: [facility] 02-26-2024 13:30-0400 Heart rate 79 /min MD María Anderson Work Phone: [facility] 02-26-2024 13:30-0400 Respiratory rate 20 /min MD María Anderson Work Phone: [facility] 02-26-2024 13:30-0400 SaO2% (BldA) [Mass fraction] 99 % MD María Anderson Work Phone: [facility] 02-26-2024 13:30-0400 Systolic blood pressure 146 mm[Hg] MD María Anderson Work Phone: [facility] 02-26-2024 08:59-0400 Body temperature 98 [degF] MD María Anderson Work Phone: [facility] 02-26-2024 08:54-0400 Body height 175.26 cm MD María Anderson Work Phone: [facility] 02-26-2024 08:54-0400 Body weight 76.8 kg MD María Anderson Work Phone: [facility] 02-17-2024 14:58-0400 Body height 175.3 cm Rosalinda Risaliti [employer] Work Phone: [facility] 02-17-2024 14:58-0400 Body mass index (BMI) [Ratio] 24.45 kg/m2 Rosalinda Risaliti [employer] Work Phone: [facility] 02-17-2024 14:58-0400 Body weight 75.12 kg Rosalinda Risaliti [employer] Work Phone: [facility] 02-17-2024 14:58-0400 Diastolic blood pressure 70 mm[Hg] Rosalinda Risaliti [employer] Work Phone: [facility] 02-17-2024 14:58-0400 Heart rate 52 /min Rosalinda Risaliti [employer] Work Phone: [facility] 02-17-2024 14:58-0400 SaO2% (BldA) [Mass fraction] 93 % Rosalinda Vuti [employer] Work Phone: [facility] 02-17-2024 14:58-0400 Systolic blood pressure 128 mm[Hg] Rosalinda Rodriguezaliti [employer] Work Phone: [facility] 01-22-2024 12:08-0400 Body temperature 97.8 [degF] MD María Anderson Work Phone: [facility] 01-22-2024 12:08-0400 Diastolic blood pressure 76 mm[Hg] MD María Anderson Work Phone: [facility] 01-22-2024 12:08-0400 Heart rate 64 /min MD María Anderson Work Phone: [facility] 01-22-2024 12:08-0400 Respiratory rate 14 /min MD María Anderson Work Phone: [facility] 01-22-2024 12:08-0400 SaO2% (BldA) [Mass fraction] 95 % MD María Anderson Work Phone: [facility] 01-22-2024 12:08-0400 Systolic blood pressure 150 mm[Hg] MD María Anderson Work Phone: [facility] 01-22-2024 04:18-0400 Body weight 73.3 kg MD María Anderson Work Phone: [facility] 01-21-2024 20:10-0400 Body height 175.26 cm MD María Anderson Work Phone: [facility] 01-21-2024 18:30-0400 Diastolic blood pressure 95 mm[Hg] MD María Anderson Work Phone: [facility] 01-21-2024 18:30-0400 Heart rate 78 /min MD María Anderson Work Phone: [facility] 01-21-2024 18:30-0400 Respiratory rate 18 /min MD María Anderson Work Phone: [facility] 01-21-2024 18:30-0400 SaO2% (BldA) [Mass fraction] 96 % MD María Anderson Work Phone: [facility] 01-21-2024 18:30-0400 Systolic blood pressure 143 mm[Hg] MD María Anderson Work Phone: [facility] 01-21-2024 15:16-0400 Body height 177.8 cm MD María Anderson Work Phone: [facility] 01-21-2024 15:16-0400 Body temperature 98.4 [degF] MD María Anderson Work Phone: [facility] 01-21-2024 15:16-0400 Body weight 77.2 kg MD María Anderson Work Phone: [facility] 12-29-2023 14:44-0400 Body temperature 98.7 [degF] MD María Anderson Work Phone: [facility] 12-29-2023 14:44-0400 Diastolic blood pressure 59 mm[Hg] MD María Anderson Work Phone: [facility] 12-29-2023 14:44-0400 Heart rate 57 /min MD María Anderson Work Phone: [facility] 12-29-2023 14:44-0400 SaO2% (BldA) [Mass fraction] 95 % MD María Anderson Work Phone: [facility] 12-29-2023 14:44-0400 Systolic blood pressure 115 mm[Hg] MD María Anderson Work Phone: [facility] 12-29-2023 04:44-0400 Respiratory rate 18 /min MD María Anderson Work Phone: [facility] 12-24-2023 15:26-0400 Body height 175.26 cm MD María Anderson Work Phone: [facility] 12-24-2023 05:31-0400 Body weight 70 kg MD María Anderson Work Phone: [facility] 12-23-2023 11:48-0400 Body temperature 98.4 [degF] MD María Anderson Work Phone: [facility] 12-23-2023 11:48-0400 Diastolic blood pressure 79 mm[Hg] MD María Anderson Work Phone: [facility] 12-23-2023 11:48-0400 Heart rate 69 /min MD María Anderson Work Phone: [facility] 12-23-2023 11:48-0400 Respiratory rate 17 /min MD María Anderson Work Phone: [facility] 12-23-2023 11:48-0400 SaO2% (BldA) [Mass fraction] 95 % MD María Anderson Work Phone: [facility] 12-23-2023 11:48-0400 Systolic blood pressure 126 mm[Hg] MD María Anderson Work Phone: [facility] 12-23-2023 06:19-0400 Body weight 71.5 kg MD María Anderson Work Phone: [facility] 12-22-2023 14:02-0400 Body height 175.26 cm MD María Anderson Work Phone: [facility] 12-21-2023 20:54-0400 Diastolic blood pressure 72 mm[Hg] MD María Anderson Work Phone: [facility] 12-21-2023 20:54-0400 Heart rate 69 /min MD María Anderson Work Phone: [facility] 12-21-2023 20:54-0400 SaO2% (BldA) [Mass fraction] 96 % MD María Anderson Work Phone: [facility] 12-21-2023 20:54-0400 Systolic blood pressure 129 mm[Hg] MD María Anderson Work Phone: [facility] 12-21-2023 19:00-0400 Body height 175.26 cm MD María Anderson Work Phone: [facility] 12-21-2023 19:00-0400 Body temperature 99.3 [degF] MD María Anderson Work Phone: [facility] 12-21-2023 19:00-0400 Body weight 74.3 kg MD María Anderson Work Phone: [facility] 12-21-2023 19:00-0400 Respiratory rate 20 /min MD María Anderson Work Phone: [facility] 12-20-2023 11:13-0400 Body temperature 98.5 [degF] MD María Anderson Work Phone: [facility] 12-20-2023 11:13-0400 Diastolic blood pressure 74 mm[Hg] MD María Anderson Work Phone: [facility] 12-20-2023 11:13-0400 Heart rate 87 /min MD María Anderson Work Phone: [facility] 12-20-2023 11:13-0400 Respiratory rate 16 /min MD María Anderson Work Phone: [facility] 12-20-2023 11:13-0400 SaO2% (BldA) [Mass fraction] 95 % MD María Anderson Work Phone: [facility] 12-20-2023 11:13-0400 Systolic blood pressure 133 mm[Hg] MD María Anderson Work Phone: [facility] 12-20-2023 06:58-0400 Body height 160.02 cm MD María Anderson Work Phone: [facility] 12-20-2023 06:58-0400 Body weight 73.1 kg MD María Anderson Work Phone: [facility] 12-20-2023 04:30-0400 Diastolic blood pressure 84 mm[Hg] MD María Anderson Work Phone: [facility] 12-20-2023 04:30-0400 Heart rate 70 /min MD María Anderson Work Phone: [facility] 12-20-2023 04:30-0400 Respiratory rate 20 /min MD María Anderson Work Phone: [facility] 12-20-2023 04:30-0400 SaO2% (BldA) [Mass fraction] 97 % MD María Anderson Work Phone: [facility] 12-20-2023 04:30-0400 Systolic blood pressure 124 mm[Hg] MD María Anderson Work Phone: [facility] 12-20-2023 00:46-0400 Body height 175.26 cm MD María Anderson Work Phone: [facility] 12-20-2023 00:46-0400 Body temperature 97.9 [degF] MD María Anderson Work Phone: [facility] 12-20-2023 00:46-0400 Body weight 73.93 kg MD María Anderson Work Phone: [facility] 09-29-2023 09:12-0400 Body height 175.3 cm Bonita Kingsley MD Work Phone: [facility] 09-29-2023 09:12-0400 Body mass index (BMI) [Ratio] 24.66 kg/m2 Bonita Kingsley MD Work Phone: [facility] 09-29-2023 09:12-0400 Body weight 75.75 kg Bonita Kingsley MD Work Phone: [facility] 09-29-2023 09:12-0400 Diastolic blood pressure 78 mm[Hg] Bonita Kingsley MD Work Phone: [facility] 09-29-2023 09:12-0400 Heart rate 64 /min Bonita Kingsley MD Work Phone: [facility] 09-29-2023 09:12-0400 Systolic blood pressure 128 mm[Hg] Bonita Kingsley MD Work Phone: [facility] 06-06-2023 16:05-0500 Body temperature 97.8 [degF] MD María Anderson Work Phone: [facility] 06-06-2023 16:05-0500 Diastolic blood pressure 70 mm[Hg] MD María Anderson Work Phone: [facility] 06-06-2023 16:05-0500 Heart rate 65 /min MD María Anderson Work Phone: [facility] 06-06-2023 16:05-0500 Respiratory rate 16 /min MD María Anderson Work Phone: [facility] 06-06-2023 16:05-0500 SaO2% (BldA) [Mass fraction] 95 % MD María Anderson Work Phone: [facility] 06-06-2023 16:05-0500 Systolic blood pressure 121 mm[Hg] MD María Anderson Work Phone: [facility] 06-06-2023 06:00-0500 Body weight 74.5 kg MD María Anderson Work Phone: [facility] 06-05-2023 10:50-0500 Body height 175.26 cm MD María Anderson Work Phone: [facility] 05-05-2023 16:26-0500 Diastolic blood pressure 80 mm[Hg] MD María Anderson Work Phone: [facility] 05-05-2023 16:26-0500 Heart rate 67 /min MD María Anderson Work Phone: [facility] 05-05-2023 16:26-0500 Respiratory rate 16 /min MD María Anderson Work Phone: [facility] 05-05-2023 16:26-0500 SaO2% (BldA) [Mass fraction] 97 % MD María Anderson Work Phone: [facility] 05-05-2023 16:26-0500 Systolic blood pressure 133 mm[Hg] MD María Anderson Work Phone: [facility] 05-05-2023 15:41-0500 Inhaled oxygen flow rate 6 L/min MD María Anderson Work Phone: [facility] 05-05-2023 15:00-0500 Body weight 135 mg MD María Anderson Work Phone: [facility] 05-05-2023 13:33-0500 Body height 175.26 cm MD María Anderson Work Phone: [facility] 05-05-2023 13:33-0500 Body mass index (BMI) [Ratio] 24.7 kg/m2 MD María Anderson Work Phone: [facility] 05-05-2023 13:33-0500 Body weight 76.2 kg MD María Anderson Work Phone: [facility] 05-05-2023 13:03-0500 Body temperature 98.3 [degF] MD María Anderson Work Phone: [facility] 04-13-2023 11:14-0400 Body height 175.26 cm MD María Anderson Work Phone: [facility] 04-13-2023 11:14-0400 Body mass index (BMI) [Ratio] 24.6 kg/m2 MD María Anderson Work Phone: [facility] 04-13-2023 11:14-0400 Body weight 75.74 kg MD María Anderson Work Phone: [facility] 04-13-2023 11:06-0400 Body temperature 97.5 [degF] MD María Anderson Work Phone: [facility] 04-13-2023 11:06-0400 Diastolic blood pressure 74 mm[Hg] MD María Anderson Work Phone: [facility] 04-13-2023 11:06-0400 Heart rate 55 /min MD María Anderson Work Phone: [facility] 04-13-2023 11:06-0400 Respiratory rate 18 /min MD María Anderson Work Phone: [facility] 04-13-2023 11:06-0400 Systolic blood pressure 127 mm[Hg] MD María Anderson Work Phone: [facility] 04-03-2023 08:43-0400 Body height 175.[address] 04-03-2023 08:43-0400 Body mass index (BMI) [Ratio] 24.66 kg/m2 [address] 04-03-2023 08:43-0400 Body weight 75.[address] 04-03-2023 08:43-0400 Diastolic blood pressure 74 mm[Hg] [address] 04-03-2023 08:43-0400 Systolic blood pressure 130 mm[Hg] [address] 04-02-2023 12:55-0400 Body height 175.26 cm MD María Anderson Work Phone: [facility] 04-02-2023 12:55-0400 Body mass index (BMI) [Ratio] 24.6 kg/m2 MD María Anderson Work Phone: [facility] 04-02-2023 12:55-0400 Body weight 75.74 kg MD María Anderson Work Phone: [facility] 04-02-2023 12:46-0400 Body temperature 98.4 [degF] MD María Anderson Work Phone: [facility] 04-02-2023 12:46-0400 Diastolic blood pressure 81 mm[Hg] MD María Anderson Work Phone: [facility] 04-02-2023 12:46-0400 Heart rate 65 /min MD María Anderson Work Phone: [facility] 04-02-2023 12:46-0400 Respiratory rate 18 /min MD María Anderson Work Phone: [facility] 04-02-2023 12:46-0400 Systolic blood pressure 124 mm[Hg] MD María Anderson Work Phone: [facility] 02-24-2023 09:32-0400 Body height 175.26 cm María Burgos Alexys Work Phone: [facility] DO Work Phone: 02-24-2023 09:32-0400 Body mass index (BMI) [Ratio] 24.78 kg/m2 María Burgos Alexys Work Phone: [facility] DO Work Phone: 02-24-2023 09:32-0400 Body surface area Derived from formula 1.92 m2 María Anderson Work Phone: [facility] DO Work Phone: 02-24-2023 09:32-0400 Body weight 76.11 kg María Burgos Alexys Work Phone: [facility] DO Work Phone: 02-24-2023 09:32-0400 Diastolic blood pressure 76 mm[Hg] María Anderson Work Phone: [facility] DO Work Phone: 02-24-2023 09:32-0400 Heart rate 72 /min María Loretta Anderson Work Phone: [facility] DO Work Phone: 02-24-2023 09:32-0400 Systolic blood pressure 124 mm[Hg] María Anderson Work Phone: [facility] DO Work Phone: 01-19-2023 09:25-0400 Body height 175.26 cm DO Trey العلي Work Phone: [facility] 01-19-2023 09:25-0400 Body temperature 98.2 [degF] DO Treydavid العلي Work Phone: [facility] 01-19-2023 09:25-0400 Body weight 77.1 kg DO Trey العلي Work Phone: [facility] 01-19-2023 09:25-0400 Diastolic blood pressure 87 mm[Hg] DO Trey العلي Work Phone: [facility] 01-19-2023 09:25-0400 Heart rate 60 /min DO Trey العلي Work Phone: [facility] 01-19-2023 09:25-0400 Respiratory rate 20 /min DO Trey العلي Work Phone: [facility] 01-19-2023 09:25-0400 SaO2% (BldA) [Mass fraction] 97 % DO Trey العلي Work Phone: [facility] 01-19-2023 09:25-0400 Systolic blood pressure 154 mm[Hg] DO Trey العلي Work Phone: [facility] 2022 10:43-0500 Body temperature 98.1 [degF] DO Trey العلي Work Phone: [facility] 2022 10:43-0500 Diastolic blood pressure 84 mm[Hg] DO Trey Zohra Work Phone: [facility] 2022 10:43-0500 Heart rate 76 /min DO Trey Zohra Work Phone: [facility] 2022 10:43-0500 Respiratory rate 18 /min DO Trey Zohra Work Phone: [facility] 2022 10:43-0500 Systolic blood pressure 156 mm[Hg] DO Trey العلي Work Phone: [facility] 03-19-2022 10:29-0400 Body temperature 97.2 [degF] DO Trey العلي Work Phone: [facility] 03-19-2022 10:29-0400 Diastolic blood pressure 85 mm[Hg] DO Trey العلي Work Phone: [facility] 03-19-2022 10:29-0400 Heart rate 81 /min DO Trey العلي Work Phone: [facility] 03-19-2022 10:29-0400 Respiratory rate 18 /min DO Trey العلي Work Phone: [facility] 03-19-2022 10:29-0400 Systolic blood pressure 147 mm[Hg] DO Trey العلي Work Phone: [facility] 03-05-2022 11:12-0400 Body height 175.26 cm DO Trey العلي Work Phone: [facility] 03-05-2022 11:12-0400 Body mass index (BMI) [Ratio] 25.4 kg/m2 DO Trey العلي Work Phone: [facility] 03-05-2022 11:12-0400 Body weight 78.01 kg DO Trey العلي Work Phone: [facility] 02-20-2022 10:45-0400 55 1 Trey العلي Work Phone: [facility] [place] Work Phone: Comment on above: [id number] 02-13-2022 11:44-0400 Body height 175.26 cm Trey Da Silva Zohra Work Phone: [facility] 250 DO Work Phone: 02-13-2022 11:44-0400 Body mass index (BMI) [Ratio] 26.14 kg/m2 Trey Yanman Work Phone: [facility] 250 DO Work Phone: 02-13-2022 11:44-0400 Body surface area Derived from formula 1.96 m2 Trey Yanman Work Phone: [facility] 250 DO Work Phone: 02-13-2022 11:44-0400 Body weight 80.29 kg Trey Yanman Work Phone: [facility] 250 DO Work Phone: 02-13-2022 11:44-0400 Diastolic blood pressure 70 mm[Hg] Trey Yanman Work Phone: [facility] [place] Work Phone: 02-13-2022 11:44-0400 Heart rate 74 /min Trey Yanman Work Phone: [facility] DO Work Phone: 02-13-2022 11:44-0400 Systolic blood pressure 134 mm[Hg] Trey Yanman Work Phone: [facility] DO Work Phone: 02-04-2022 09:25-0400 Body temperature 97.7 [degF] DO Trey Yanman Work Phone: [facility] 02-04-2022 09:25-0400 Diastolic blood pressure 71 mm[Hg] DO Trey العلي Work Phone: [facility] 02-04-2022 09:25-0400 Heart rate 76 /min DO Trey العلي Work Phone: [facility] 02-04-2022 09:25-0400 Respiratory rate 18 /min DO Trey العلي Work Phone: [facility] 02-04-2022 09:25-0400 Systolic blood pressure 150 mm[Hg] DO Treydavid العلي Work Phone: [facility] 10-09-2021 14:00-0400 Body height 175.26 cm María Stevenson II Other [facility] [employer] Other 10-09-2021 14:00-0400 Body mass index (BMI) [Ratio] 25.25 kg/m2 María Stevenson II Other [facility] [employer] Other 10-09-2021 14:00-0400 Body weight 77.57 kg María Stevenson II Other [facility] [employer] Other 05-28-2021 14:00-0500 Diastolic blood pressure 80 mm[Hg] Trey العلي Work Phone: [facility] [employer] 250 DO Work Phone: 05-28-2021 14:00-0500 Systolic blood pressure 126 mm[Hg] Trey العلي Work Phone: [facility] [employer] 250 DO Work Phone: 05-28-2021 13:55-0500 Body height 175.26 cm Trey العلي Work Phone: [facility] [employer] 250 DO Work Phone: 05-28-2021 13:55-0500 Body mass index (BMI) [Ratio] 26.14 kg/m2 Trey العلي Work Phone: [facility] [employer] 250 DO Work Phone: 05-28-2021 13:55-0500 Body surface area Derived from formula 1.96 m2 Trey العلي Work Phone: [facility] [employer] 250 DO Work Phone: 05-28-2021 13:55-0500 Body weight 80.29 kg Trey العلي Work Phone: [facility] 250 DO Work Phone: 05-28-2021 13:55-0500 Diastolic blood pressure 103 mm[Hg] Trey العلي Work Phone: [facility] 250 DO Work Phone: 05-28-2021 13:55-0500 Heart rate 70 /min Trey العلي Work Phone: [facility] 250 DO Work Phone: 05-28-2021 13:55-0500 Systolic blood pressure 144 mm[Hg] Trey العلي Work Phone: [facility] 250 DO Work Phone: 05-15-2021 14:30-0500 Body height 175.26 cm María Alden II Other [employer] Other 05-15-2021 14:30-0500 Body mass index (BMI) [Ratio] 25.1 kg/m2 María Alden II Other [employer] Other 05-15-2021 14:30-0500 Body weight 77.11 kg María Alden II Other [employer] Other 03-19-2021 10:45-0400 Body height 175.26 cm Fani Johnston Other [employer] Other 03-19-2021 10:45-0400 Body mass index (BMI) [Ratio] 25.1 kg/m2 Fani Johnston Other [employer] Other 03-19-2021 10:45-0400 Body weight 77.11 kg Fani Johnston Other [facility] [employer] Other Encounters Encounter Date Encounter Type Care Provider Facility Start: 11-17-2024 End: 11-18-2024 Office outpatient visit 25 minutes María Anderson MD Work Phone: [facility] Comment on above: Sinus congestion (Pr imary Dx); Throat discomfort; Light headedness; Dysfunction of both eustachian tubes; Bruising; Epistaxis; Chronic systolic congestive heart failure, NYHA class 2 ([facility]) Start: 11-17-2024 End: 11-18-2024 ambulatory MARÍA ANDERSON Not Available Start: 11-08-2024 End: 11-08-2024 ambulatory d ser [facility] Facility[facility] Start: 10-20-2024 End: 10-20-2024 [facility] Start: 10-17-2024 End: 10-17-2024 ambulatory d Yaser [facility] Facility:[facility] Start: 10-07-2024 [facility] Start: 10-04-2024 End: 10-04-2024 Clinisync Result Encounter Buck Cerrato MD Work Phone: [facility] External Department Unsolicited Start: 10-04-2024 End: 10-04-2024 Clinisync Result Encounter Buck Cerrato MD Work Phone: [facility] Unsolicited Start: 10-04-2024 End: 10-04-2024 Office outpatient visit 15 minutes Maria Fernanda Laws NP Work Phone: [facility] Comment on above: Acute non-recurrent pansinusitis (Primary Dx); Acute cough; Wheeze; Cerumen debris on tympanic membrane of left ear Start: 10-04-2024 End: 10-04-2024 ambulatory MARÍA ANDERSON Not Available Start: 09-14-2024 End: 09-14-2024 ambulatory [facility] Facility:[facility] Start: 09-07-2024 End: 09-07-2024 [facility] Facility:[facility] Start: 08-24-2024 End: 08-24-2024 ambulatory Trey العلي Facility:[facility] Start: 08-17-2024 End: 08-17-2024 [facility] Start: 08-08-2024 End: 08-08-2024 ambulatory Julio C RAMIREZ Facility:[facility] Start: 08-08-2024 ambulatory Julio C RAMIREZ Facility ::[id number] Start: 08-04-2024 End: 08-04-2024 Clinisync Result Encounter Generic External Data Provider [facility] External Department Unsolicited Start: 08-04-2024 End: 08-04-2024 Clinisync Result Encounter Generic External Data Provider [facility] External Department Unsolicited Start: 08-03-2024 End: 08-03-2024 ambulatory [facility] Facility:[facility] Start: 07-20-2024 End: 07-20-2024 ambulatory [facility] Facility:[facility] Start: 07-13-2024 End: 07-13-2024 ambulatory Marisela M Jorysantos Facility:[facility] Start: 07-05-2024 End: 07-05-2024 ambulatory [facility] Facility:[facility] Start: 06-15-2024 End: 06-15-2024 Emergency department patient visit María Anderson MD Work Phone: [facility] Work Phone: Start: 06-13-2024 End: 06-13-2024 Office outpatient visit 25 minutes Rosalinda Caro NP Work Phone: [facility] Comment on above: Mixed hyperlipidemia (CMS/HCC) (Primary Dx); Prediabetes; 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 (CMS/HCC); Chronic atrial fibrillation (HCC) (CMS/HCC); Congestive heart failure, NYHA class 2, unspecified congestive heart failure type (CMS/HCC); Gastroesophageal reflux disease without esophagitis; Anemia, unspecified type; Lumbosacral spondylosis without myelopathy; History of gout; Centrilobular emphysema (CMS/HCC); Medicare annual wellness visit, subsequent; ACP (advance care planning) Start: 06-13-2024 End: 06-13-2024 Patient encounter procedure Rosalinda Caro CUTTER DOWN Work Phone: [facility] Start: 06-13-2024 End: 06-13-2024 ambulatory ROSALINDA CARO Not Available Start: 05-18-2024 End: 05-18-2024 Office outpatient visit 10 minutes Bonita Kingsley MD Work Phone: [facility] Comment on above: Congestive heart andrew lure, NYHA class 2, unspecified congestive heart failure type; BMI 24.0-24.9, adult; Former smoker Start: 05-18-2024 End: 05-18-2024 ambulatory [facility] Start: 05-11-2024 End: 05-11-2024 ambulatory [facility] Facility:[facility] Start: 05-06-2024 End: 05-06-2024 Patient encounter procedure María Anderson MD Work Phone: [facility] [place] Work Phone: Start: 05-06-2024 End: 05-06-2024 ambulatory María Anderson Facility:[facility] Start: 05-04-2024 End: 05-04-2024 ambulatory [facility] Facility:[facility] Start: 04-28-2024 End: 04-28-2024 ambulatory [facility] Facility:[facility] Start: 04-25-2024 End: 04-25-2024 Elida Blum MA Work Phone: [facility] Comment on above: Lumbosacral spondylo sis without myelopathy (Primary Dx); Skin tear of left elbow without complication, initial encounter; Left leg cellulitis Start: 04-22-2024 End: 04-22-2024 ambulatory Erasmo Bonner Facility:[facility] Start: 04-18-2024 End: 04-18-2024 Office outpatient visit 25 minutes Bonita Kingsley MD Work Phone: [facility] Comment on above: Nonrheumatic aortic valve stenosis; Status post transcatheter aortic valve replacement; Coronary artery disease, unspecified vessel or lesion type, unspecified whether angina present, unspecified whether kotlik or transplanted heart; Pulmonary hypertension (Multi); Congestive heart failure, NYHA class 2, unspecified congestive heart failure type; Permanent atrial fibrillation (Multi); PVD (peripheral vascular disease) ([facility]); Former smoker; BMI 23.0-23.9, adult Start: 04-18-2024 End: 04-18-2024 ambulatory [facility] Start: 04-15-2024 End: 04-15-2024 ambulatory Erasmo Bonner Facility:[facility] Start: 04-13-2024 End: 04-13-2024 ambulatory [facility] Start: 04-13-2024 End: 04-13-2024 Subsequent hospital visit by physician Nano Tamayo Echo/Vasc Room 2 [facility] Comment on above: Nonrheumatic aortic valve stenosis; Presence of prosthetic heart valve; Status post transcatheter aortic valve replacement Start: 04-08-2024 End: 04-08-2024 Telephone encounter Erasmo Bonner DPM FACFAS Work Phone: [facility] Start: 04-08-2024 End: 04-08-2024 ambulatory Erasmo Bonner Facility:[facility] Start: 04-06-2024 End: 04-06-2024 ambulatory MARÍA ANDERSON Not Available Start: 04-06-2024 End: 04-06-2024 Office outpatient visit 40 minutes Maria Fernanda Laws CUTTER DOWN Work Phone: [facility] Comment on above: Skin tear of left el bow without complication, initial encounter (Primary Dx); Left leg cellulitis; Left leg swelling; Blood blister Start: 03-30-2024 End: 03-30-2024 Bamboo flowsheet Petr Perla CUTTER DOWN Work Phone: [facility] Start: 03-30-2024 End: 03-30-2024 Bamboo flowsheet Petr Perla CUTTER DOWN Work Phone: [facility] Start: 03-30-2024 End: 03-30-2024 Office outpatient visit 40 minutes Petr Peral CUTTER DOWN Work Phone: [facility] Comment on above: TIA (transient ische lakeisha attack) (Primary Dx); Cervical spondylosis without myelopathy; Hyperreflexia Start: 03-30-2024 End: 03-30-2024 ambulatory PETR PERLA Not Available Start: 03-22-2024 End: 03-22-2024 Bamboo flowsheet Frank Hook MD Work Phone: [facility] Start: 03-22-2024 End: 03-22-2024 Bamboo flowsheet Frank Hook MD Work Phone: [facility] Start: 03-22-2024 End: 03-22-2024 Office outpatient visit 10 minutes Frank Hook MD Work Phone: [facility] Comment on above: Seborrheic keratosis (Primary Dx) Start: 03-22-2024 End: 03-22-2024 ambulatory FRANK HOOK Not Available Start: 03-08-2024 End: 03-08-2024 ambulatory MD María Anderson Work Phone: [facility] Work Phone: Start: 03-08-2024 End: 03-08-2024 MD María Anderson Work Phone: [facility] Work Phone: Start: 03-08-2024 End: 03-08-2024 MD María Anderson Work Phone: [facility] Start: 03-08-2024 End: 03-08-2024 ambulatory MD María Anderson Work Phone: [facility] Work Phone: Start: 03-07-2024 End: 03-07-2024 ambulatory MARÍA ANDERSON Not Available Start: 03-07-2024 End: 03-07-2024 Office outpatient visit 25 minutes Maria Fernanda Laws NP Work Phone: [facility] Comment on above: Nontraumatic tear of right rotator cuff, unspecified tear extent (Primary Dx) Start: 02-26-2024 Evaluation and manag ement of inpatient MD María Anderson Work Phone: [facility] Work Phone: Start: 02-26-2024 End: 02-27-2024 observation encounter MD María Anderson Work Phone: [facility] Work Phone: Start: 02-26-2024 End: 02-27-2024 MD María Anderson Work Phone: [facility] Work Phone: Start: 02-26-2024 End: 02-27-2024 ambulatory Bright Lopez Facility:[facility] Start: 02-17-2024 End: 02-17-2024 Transitional care manage srvc 7 day discharge Rosalinda Caro CUTTER DOWN Work Phone: [facility] Comment on above: TIA (transient ische lakeisha attack) (Primary Dx); Generalized muscle weakness; Chronic systolic congestive heart failure, NYHA class 2 (CMS/[facility]) Start: 02-17-2024 End: 02-17-2024 ambulatory ROSALINDA CARO Not Available Start: 02-03-2024 End: 02-03-2024 ambulatory MD María Anderson Work Phone: [facility] Work Phone: Start: 02-03-2024 End: 02-03-2024 Patient encounter procedure MD María Anderson Work Phone: [facility] Work Phone: Start: 02-03-2024 End: 02-03-2024 MD María Anderson Work Phone: [facility] Work Phone: Start: 01-21-2024 End: 01-22-2024 ambulatory Minna Patricia Facility:[facility] Start: 01-21-2024 End: 01-22-2024 Evaluation and management of inpatient MD María Anderson Work Phone: [facility] Work Phone: Start: 01-21-2024 End: 01-22-2024 observation encounter MD María Anderson Work Phone: [facility] Work Phone: Start: 01-21-2024 End: 01-22-2024 MD María Anderson Work Phone: [facility] Work Phone: Start: 01-06-2024 End: 01-06-2024 Patient encounter procedure MD María Anderson Work Phone: [facility] Work Phone: Start: 01-06-2024 End: 01-06-2024 MD María Anderson Work Phone: [facility] Work Phone: Start: 01-06-2024 End: 01-06-2024 ambulatory MD María Anderson Work Phone: [facility] Work Phone: Start: 01-04-2024 End: 01-04-2024 ambulatory MARIA FERNANDA LAWS Not Available Start: 12-24-2023 Non-patient / Non-visit MD Omar Anderson Work Phone: [facility] Work Phone: Start: 12-24-2023 MD María Anderson Work Phone: [facility] Work Phone: Start: 12-23-2023 End: 12-29-2023 MD María Anderson Work Phone: [facility] Work Phone: Start: 12-23-2023 End: 12-29-2023 Evaluation and management of inpatient MD María Anderson Work Phone: [facility] Work Phone: Start: 12-22-2023 Non-patient / Non-visit MD Omar Anderson Work Phone: [facility] Work Phone: Start: 12-22-2023 End: 12-23-2023 Evaluation and management of inpatient MD María Anderson Work Phone: [facility] Work Phone: Start: 12-22-2023 Non-patient / Non-visit MD Omar Anderson Work Phone: [facility] Work Phone: Start: 12-22-2023 End: 12-23-2023 MD María Anderson Work Phone: [facility] Work Phone: Start: 12-21-2023 Evaluation and manag ement of inpatient MD María Anderson Work Phone: [facility] Work Phone: Start: 12-21-2023 observation encounter MD Roney Anderson Work Phone: [facility] Work Phone: Start: 12-20-2023 End: 12-20-2023 ambulatory Rubio Olexa Facility:[facility] Start: 12-20-2023 End: 12-20-2023 Evaluation and management of inpatient MD María Anderson Work Phone: [facility] Work Phone: Start: 12-20-2023 End: 12-20-2023 observation encounter MD María Anderson Work Phone: [facility] Work Phone: Start: 12-20-2023 End: 12-20-2023 MD María Anderson Work Phone: [facility] Work Phone: Start: 09-29-2023 End: 09-29-2023 Office outpatient visit 25 minutes Bonita Kingsley MD Work Phone: [facility] Comment on above: Nonrheumatic aortic valve stenosis; Presence of prosthetic heart valve; Status post transcatheter aortic valve replacement; Permanent atrial fibrillation (Multi); Coronary artery disease, unspecified vessel or lesion type, unspecified whether angina present, unspecified whether kotlik or transplanted heart; Congestive heart failure, NYHA class 2, unspecified congestive heart failure type (Multi); Pulmonary hypertension ([facility]); Hypertension, unspecified type; Pure hypercholesterolemia; PVD (peripheral vascular disease) ([facility]); Type 2 diabetes mellitus without complication, unspecified whether assistant terminal manager insulin use ([facility]); Stage 2 chronic kidney disease; Former smoker Start: 09-29-2023 End: 09-29-2023 ambulatory [facility] Start: 06-04-2023 End: 06-06-2023 Evaluation and management of inpatient MD María Anderson Work Phone: [facility] Work Phone: Start: 05-05-2023 End: 05-05-2023 Admission to same day surgery center MD María Anderson Work Phone: [facility] [place] Start: 05-05-2023 End: 05-05-2023 ambulatory MD María Anderson Work Phone: [facility] Work Phone: Start: 04-13-2023 End: 04-13-2023 ambulatory MD María Anderson Work Phone: [facility] Work Phone: Start: 04-13-2023 End: 04-13-2023 Discharged Recurring MD María Anderson Work Phone: [facility] [place] Work Phone: Start: 04-03-2023 End: 04-03-2023 Subsequent hospital visit by physician Nano Tamayo Echo/Vasc Room 2 [facility] Comment on above: Nonrheumatic aortic valve stenosis; S/P aortic valve replacement Start: 04-02-2023 End: 04-02-2023 ambulatory MD María Anderson Work Phone: [facility] Work Phone: Start: 04-02-2023 End: 04-02-2023 Patient encounter procedure MD María Anderson Work Phone: [facility] Work Phone: Start: 04-02-2023 Registered Recurring MD María Anderson Work Phone: [facility] [place] Work Phone: Start: 03-30-2023 End: 03-30-2023 ambulatory Ema Blades Other [facility] [employer] Other Start: 03-30-2023 Office outpatient ne w 45 minutes Ema Bladekarla [facility] Neurosurgery Start: 02-24-2023 Office outpatient vi sit 25 minutes María Anderson Work Phone: [facility] 250 DO Work Phone: Start: 02-24-[address] Trey Lutz Facility: Start: 01-19-2023 End: 01-19-2023 Emergency department patient visit DO Trey العلي Work Phone: [facility]Emergency [facility] Work Phone: Start: 01-13-2023 End: 01-13-2023 ambulatory DO Trey العلي Work Phone: [facility] Work Phone: Start: 01-13-2023 End: 01-13-2023 Patient encounter procedure DO Trey العلي Work Phone: [facility]CT Scan [facility] [place] Work Phone: Start: 10-28-2022 End: 10-28-2022 Patient encounter procedure DO Trey العلي Work Phone: [facility] [place] Work Phone: Start: 10-13-2022 End: 11-12-2022 ambulatory ROME H TEDWWAD Facility:[facility] Start: 10-08-2022 End: 10-08-[address] TREY NEAL . Facility:[facility] Start: 09-15-2022 End: 10-10-2022 ambulatory ROME H FAWWAD Facility:[facility] Start: 08-13-2022 End: 09-12-2022 ambulatory ROME H FAWWAD Facility:[facility] Start: 07-16-2022 End: 08-13-2022 ambulatory ROME H FAWWAD Facility:[facility] Start: 06-17-2022 End: 06-17-[address] TREY العلي Facility:[facility] Start: 06-16-2022 End: 07-16-2022 ambulatory SHAIKH Fazal TREVINO Facility:[facility] Start: 06-15-2022 End: 06-20-[address] TREY العلي Facility:[facility] Start: 06-03-2022 End: 06-14-[address] TREY العلي Facility:[facility] Start: 2022 End: 2022 ambulatory DO Trey العلي Work Phone: [facility] Work Phone: Start: 2022 End: 2022 Discharged Recurring DO Trey العلي Work Phone: [facility] [place] Work Phone: Start: 05-22-2022 End: 05-23-2022 ambulatory [...] 03-19-2022 ambulatory DO Trey العلي Work Phone: [facility] Work Phone: Start: 03-19-2022 End: 03-19-2022 Discharged Recurring DO Trey العلي Work Phone: [facility] [place] Start: 03-16-2022 End: 04-14-2022 ambulatory ROME H FAElizabethWAD Facility:[facility] Start: 02-28-2022 Chart Update Trey juan Work Phone: [facility] 600 DO Work Phone: Start: 02-20-2022 Patient encounter procedure Trey العلي Work Phone: [facility] [address] [place] Work Phone: Start: 02-20-[address] Bonita Kingsley Facility:[id number] Start: 02-13-2022 ambulatory SHAIKH Fazal HEATOND Facilit y:[facility] Start: 02-13-2022 Patient encounter procedure Trey العلي Work Phone: [facility] 250 DO Work Phone: Start: 02-13-2022 End: 03-15-2022 ambulatory ROME H SARAHWAD Facility:[facility] Start: 02-04-2022 Registered Recurring DO Che العلي Work Phone: [facility] [place] Start: 02-03-2022 End: 02-03-2022 Departed Referred DO Trey العلي Work Phone: [facility] [place] Start: 01-21-2022 ambulatory ROME H FAElizabethWAD Facilit y:[facility] Start: 01-13-2022 End: 02-12-2022 ambulatory ROME H FAWWAD Facility:[facility] Start: 01-08-2022 End: 01-08-2022 Patient encounter procedure DO Trey العلي Work Phone: [facility] [facility] Start: 01-02-2022 End: 01-03-2022 ambulatory ROME H FAWWAD Facility:[facility] Start: 12-31-2021 End: 01-01-2022 ambulatory ROME H FAWWAD Facility:[facility] Start: 12-13-2021 End: 01-10-2022 ambulatory ROME H FAWWAD Facility:[facility] Start: 10-09-2021 End: 10-09-2021 ambulatory María Graham II Other [facility] [employer] Other Start: 10-09-2021 Office outpatient vi sit 15 minutes María Alden II [facility] Start: 05-28-2021 Office outpatient vi sit 25 minutes Trey العلي Work Phone: [facility] [facility] DO Work Phone: Start: 05-15-2021 End: 05-15-2021 ambulatory María Graham II Other [facility] [employer] Other Start: 05-15-2021 Office outpatient ne w 45 minutes María Graham II [facility] Start: 03-19-2021 Patient encounter procedure Fani Johnston [facility] Start: 03-01-2021 Patient encounter procedure Trey العلي Work Phone: YG-Mtojgwwuvb-LEV [facility] [address] [place] Work Phone: Start: 02-13-2020 Patient encounter procedure Trey العلي VV-Rotrhwysut-DIS [facility] [address] [place] Work Phone: Procedures Date Procedure Procedure Detail Performing Clinician Start: 10-04-2024 Ct lumbar spine w/o contrast material Buck Cerrato MD Work Phone: Start: 08-04-2024 XR ABDOMEN 1V Generic E [...] Start: 01-21-2024 CT angiography of head MD Mraía Anderson Work Phone: Start: 01-21-2024 CT angiography [...] Nat Anderson Work Phone: Start: 04-03-2023 Echo ttc r-t 2d w/ wom-mode compl spec&colr d Bonita Kingsley MD Work Phone: Start: 01-19-2023 Blood culture for ba cteria, including anaerobic screen MD María Anderson Work Phone: Start: 01-13-2023 CT of urinary tract DO Trey Zohra Work Phone: Start: 02-20-2022 Echocardiography Abrahanmabel Yanman Work Phone: Start: 01-08-2022 Plain X-ray of right hip DO Trey Zohra Work Phone: Start: 02-20-2021 Echocardiography Che Yanman Work Phone: Aerobic microbial culture DO Treydavid العلي Work Phone: Cardiovascular system repair Trey العلي Work Phone: Heart valve replacement Abrahan monroenikki العلي Work Phone: Operation on bladder Trey العلي Work Phone: Operative procedure on hip J walter العلي Prostatectomy Trey العلي Prosthetic arthropla sty of the hip Trey العلي Work Phone: Repair of musculoten dinous cuff of shoulder Trey العلي Work Phone: Total replacement of hip Dominik triston Rekha العلي Work Phone: Comment on above: 12/18/20; Plan of Treatment Date Care Activity Detail Author Start: 12-19-2033 DTaP/Tdap/Td Vaccine s (2 - Td or Tdap) DTaP/Tdap/Td Vaccines (2 - Td or Tdap) [facility] Start: 04-13-2025 Echocardiography Echocardiogram [facility] Start: 02-13-2025 Influenza vaccination Influenz a Vaccine (Season Ended) [facility] Start: 01-21-2025 Lipid panel Lipid Panel [facility] Start: 12-13-2024 End: 12-13-2024 Patient encounter procedure [facility] Start: 12-12-2024 End: 06-13-2025 CBC W Auto Differential panel - Blood CBC and differential Lab Routine Anemia, unspecified type Expected: 12/12/2024, Expires: 06/13/2025 [facility] Comment on above: Expected: 12/12/2024 , Expires: 06/13/2025 Start: 12-12-2024 End: 06-13-2025 Comprehensive metabolic 2000 panel - Serum or Plasma Comprehensive metabolic panel Lab Routine Prediabetes Expected: 12/12/2024, Expires: 06/13/2025 [facility] Comment on above: Expected: 12/12/2024 , Expires: 06/13/2025 Start: 12-12-2024 End: 06-13-2025 Hemoglobin a1c with eag Hemoglobin a1c with eag Lab Routine Prediabetes Expected: 12/12/2024, Expires: 06/13/2025 [facility] Comment on above: Expected: 12/12/2024 , Expires: 06/13/2025 Start: 12-12-2024 End: 06-13-2025 Lipid 1996 panel - Serum or Plasma Lipid panel Lab Routine Mixed hyperlipidemia (CMS/HCC) Expected: 12/12/2024, Expires: 06/13/2025 [facility] Comment on above: Expected: 12/12/2024 , Expires: 06/13/2025 Start: 11-04-2024 End: 11-04-2024 Patient encounter procedure 11/04/2024 1:40 PM EDT Office Visit [address] [place] [phone] Bonita Kingsley MD [address] [facility] [address] [place] [address] [facility] Start: 11-01-2024 Urine screening for protein Diabetes: Urine Protein Screening [facility] Start: 06-15-2024 Urine culture [facility] Start: 06-15-2024 [facility] Start: 06-15-2024 Bacteria identified in Blood by Culture Blood Culture [facility] Start: 06-15-2024 Bacteria identified in Urine by Culture Urine Culture [facility] Start: 05-18-2024 End: 05-18-2024 Patient encounter procedure 05/18/2024 9:30 AM EST Office Visit [address] [place] [phone] Bonita Kingsley MD [address] [facility] [address], [address] [place] [address] [facility] Start: 05-15-2024 Medicare Annual Well ness Visit Medicare Annual Wellness Visit (AWV) [facility] Start: 05-11-2024 End: 05-11-2024 Patient encounter procedure 05/11/2024 9:45 AM EST Office Visit [facility] [address] [place] [id number] María Anderson MD [address] [place] [address] [facility] Start: 05-02-2024 End: 04-18-2025 Basic metabolic 2000 panel - Serum or Plasma Basic Metabolic Panel Lab Routine Congestive heart failure, NYHA class 2, unspecified congestive heart failure type Expected: 05/02/2024 (Approximate), Expires: 04/18/2025 [facility] Service Area Work Phone: Comment on above: Expected: 05/02/2024 (Approximate), Expires: 04/18/2025 Start: 04-18-2024 End: 04-18-2024 Patient encounter procedure 04/18/2024 2:00 PM EST Office Visit [facility] [address] [place] [phone] Bonita Kingsley MD [address] [facility] [address], [address] [place] [address] [facility] Start: 04-03-2024 Echocardiography Echocardiogram [facility] Start: 03-30-2024 End: 03-30-2025 MR Brain WO contrast MR brain wo contrast Imaging Routine TIA (transient ischemic attack) Expected: 03/30/2024 (Approximate), Expires: 03/30/2025 [facility] Work Phone: Comment on above: Expected: 03/30/2024 (Approximate), Expires: 03/30/2025 Start: 03-30-2024 End: 03-30-2025 MR Cervical spine WO contrast MR cervical spine wo contrast Imaging Routine Cervical spondylosis without myelopathy Hyperreflexia Expected: 03/30/2024 (Approximate), Expires: 03/30/2025 [facility] Comment on above: Expected: 03/30/2024 (Approximate), Expires: 03/30/2025 Start: 03-30-2024 End: 09-28-2025 US Heart Transthoracic Transthoracic Echo Complete Echocardiography Routine 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 Expected: 03/30/2024 (Approximate), Expires: 09/28/2025 [facility] Service Area Work Phone: Comment on above: Expected: 03/30/2024 (Approximate), Expires: 09/28/2025 Start: 03-30-2024 End: 03-30-2024 Patient encounter procedure [facility] Comment on above: Arrived Start: 03-22-2024 End: 03-22-2024 Patient encounter procedure 03/22/2024 1:30 PM EDT Office Visit [facility] [address] [place] [address] Frank Hook MD [address] [place] [address] [facility] Start: 03-16-2024 End: 03-16-2024 Patient encounter procedure 03/16/2024 10:20 AM EDT Office Visit [facility] [address] [place] [phone] Bonita Kingsley MD [address] [facility] [address], [address] [place] [address] [facility] Start: 03-08-2024 X-ray of right knee [facility] Start: 03-08-2024 XR Knee - right 3 Views [facility] Start: 03-08-2024 Plain X-ray of right shoulder [facility] Start: 09-24-2024 XR Shoulder - right Views [facility] Start: 03-02-2024 End: 03-02-2024 Patient encounter procedure 03/02/2024 1:30 PM EDT Appointment [place] [id number] [facility] [address] [place] [phone] [facility] Start: 03-01-2024 FUV, Provider: Bonita Kingsley, Status: Pen, Time: 11:50 AM FUV, Provider: Bonita Kingsley, Status: Pen, Time: 11:50 AM [facility] [address] DO Work Phone: Start: 03-01-2024 End: 03-01-2024 Patient encounter procedure 03/01/2024 11:50 AM EDT Office Visit [address] [place] [phone] Bonita Kingsley MD [address] [facility] [address], [address] [address] [facility] Start: 02-27-2024 [facility] Start: 02-26-2024 [facility] Start: 02-26-2024 Hospital admission [facility] Start: 02-14-2024 COVID-19 Vaccine ( season) COVID-19 Vaccine ( season) [facility] Start: 02-14-2024 Influenza vaccination Influenza Vacc ine (#1) [facility] Start: 02-03-2024 X-ray of right knee XR knee RT 3V - NOT FOR ER USE [facility] Start: 02-03-2024 XR Knee - right 3 Views [facility] Start: 02-02-2024 Hemoglobin A1c measurement Diabetes: Hemoglobin A1C [facility] Start: 01-22-2024 Referral to neurologist [facility] Start: 01-22-2024 End: 01-22-2024 [facility] Start: 01-21-2024 Consultation [facility] Start: 01-21-2024 Hospital admission [facility] Start: 01-21-2024 Physical therapy procedure [facility] Start: 01-21-2024 Referral to occupati onal therapist [facility] Start: 01-21-2024 Referral to speech a nd language therapy service [facility] Start: 01-21-2024 [facility] Start: 01-06-2024 X-ray of right knee XR knee RT 3V - NOT FOR ER USE [facility] Start: 01-06-2024 XR Knee - right 3 Views [facility] Start: 12-29-2023 [facility] Start: 12-23-2023 Hospital admission [facility] Start: 12-23-2023 Referral to clinical stretcher operator [facility] Start: 12-23-2023 [facility] Start: 12-22-2023 Drainage of Right Kn ee Joint, Percutaneous Approach [facility] Start: 12-22-2023 Consultation [facility] Start: 12-22-2023 Referral to rehabilitation physician [facility] Start: 12-21-2023 Physical therapy procedure [facility] Start: 12-21-2023 Referral to occupati onal therapist [facility] Start: 12-21-2023 Referral to Glass Forming Engineer [facility] Start: 12-21-2023 [facility] Start: 12-21-2023 Hospital admission [facility] Start: 12-20-2023 [facility] Start: 12-20-2023 Consultation [facility] Start: 12-20-2023 CT Knee - right WO contrast [facility] Start: 12-20-2023 CT of right knee CT knee RT wo con F [facility] Start: 12-20-2023 Hospital admission [facility] Start: 12-20-2023 Physical therapy procedure [facility] Start: 12-20-2023 Referral to occupati onal therapist [facility] Start: 12-20-2023 [facility] Start: 12-20-2023 Plain X-ray of left shoulder XR shoulder LT min 2V* [facility] Start: 12-20-2023 XR Shoulder - left Views [facility] Start: 12-20-2023 Plain X-ray of right femur XR femur RT 2V* [facility] Start: 12-20-2023 X-ray of right knee XR knee RT 4V* F [facility] Start: 12-20-2023 XR Femur - right 2 Views [facility] Start: 12-20-2023 XR Knee - right 4 Views [facility] Start: 12-20-2023 Computed tomography of abdomen and pelvis with contrast CT abdomen pelvis w con [facility] Start: 12-20-2023 CT Abdomen and Pelvi s W contrast IV [facility] Start: 12-20-2023 CT cervical spine without contrast CT cervical spine wo con [facility] Start: 12-20-2023 CT Cervical spine WO contrast [facility] Start: 12-20-2023 CT Chest W contrast IV [facility] Start: 12-20-2023 CT of head without contrast CT head/brain wo con [facility] Start: 12-20-2023 CT of thorax with contrast CT chest w con [facility] Start: 12-20-2023 CT Unspecified body region WO contrast [facility] Start: 06-05-2023 Referral to sr. logistics analyst [facility] Start: 06-05-2023 [facility] Start: 06-05-2023 [facility] Start: 06-05-2023 Referral to neurologist [facility] Start: 06-04-2023 Hospital admission [facility] Start: 05-05-2023 End: 05-05-2023 [facility] Start: 03-27-2023 ECHO, Provider: PB [facility]TR[facility] ,[id number], Status: Pen, Time: 1:00 PM ECHO, Provider: [place] [facility] ,[id number], Status: Pen, Time: 1:00 PM [facility] 250 DO Work Phone: Start: 02-24-2023 FUV, Provider: Bonita Kingsley, Status: Pen, Time: 9:20 AM FUV, Provider: Bonita Kingsley, Status: Pen, Time: 9:20 AM [facility] 250 DO Work Phone: Start: 02-13-2023 COVID-19 Vaccine ( season) COVID-19 Vaccine () [facility] Start: 02-13-2023 Influenza vaccination Influenza Vacc ine (#1) [facility] Start: 01-19-2023 Bacteria identified in Blood by Culture [facility] Start: 03-05-2022 FUV, Provider: Bonita Kingsley, Status: Pen, Time: 11:10 AM FUV, Provider: Bonita Kingsley, Status: Pen, Time: 11:10 AM [facility] Work Phone: Start: 02-20-2022 ECHO, Provider: [facility] 01,[id number], Status: Pen, Time: 10:45 AM ECHO, Provider: [place] [facility] 01,[id number], Status: Pen, Time: 10:45 AM [facility] Work Phone: Start: 02-13-2022 FUV, Provider: Bonita Kingsley, Status: Pen, Time: 11:20 AM FUV, Provider: Bonita Kingsley, Status: Pen, Time: 11:20 AM [facility] Work Phone: Start: 02-04-2022 Registered Recurring Traumatic wound [facility] [place] Start: 02-03-2022 End: 02-03-2022 Departed Referred Departed Referred [facility] [place] Start: 05-23-2021 COVID-19 Vaccine (4 - Pfizer series) COVID-19 Vaccine (4 - Pfizer series) [facility] Start: 03-03-2021 Creatinine measurement Creatinine Le johnny [facility] Start: 03-03-2021 Potassium measurement Potassium Leve l [facility] Start: 02-28-2020 Basic metabolic 1998 panel - Serum or Plasma Basic Metabolic Panel WV-Nrkkeolsfj-OWY [place] [facility] [address] [place] Work Phone: Start: 02-28-2020 CBC W Auto Different ial panel - Blood Complete Blood Count YW-Linperxyjd-CPZ [facility] [employer] [address] [place] Work Phone: Start: 02-28-2020 PT/INR PT/INR [facility]iol [facility] [place] [facility] [address] [place] Work Phone: Start: 02-27-2020 Assay of magnesium Magnesium, Serum DE-Rgnztlmhil-DPH [facility] [address] [place] Work Phone: Start: 02-27-2020 CBC W Auto Different ial panel - Blood Complete Blood Count UT-Anoqupurhx-MDT [facility] [address] [place] Work Phone: Start: 02-27-2020 PT/INR PT/INR [facility] [address] [place] Work Phone: Start: 02-27-2020 Urea, electrolytes a nd creatinine measurement Renal Function Panel FA-Vckqjgrxnh-KGG [facility] [address] [place] Work Phone: Start: 11-02-2012 DTaP/Tdap/Td Vaccine s (1 - Tdap) DTaP/Tdap/Td Vaccines (1 - Tdap) [facility] Start: 2011 RSV High Risk: (Elde rly (60+) or Population) (1 - 1-dose 75+ series) RSV High Risk: (Elderly (60+) or Population) (1 - 1-dose 75+ series) [facility] Start: 1996 Hepatitis B Vaccines (1 of 3 - Risk 3-dose series) Hepatitis B Vaccines (1 of 3 - Risk 3-dose series) [facility] Start: 1986 Zoster Vaccines (1 of 2) Zoster Vacc winnie (1 of 2) [facility] Start: 1955 Hepatitis A Vaccines (1 of 2 - Risk 2-dose series) Hepatitis A Vaccines (1 of 2 - Risk 2-dose series) [facility] Start: 1955 Urine screening for protein Diabetes: Urine Protein Screening [facility] Start: 1946 Diabetic foot examination Diabetes: Foot Exam [facility] Start: 1946 Glaucoma screening Diabetes: R etinopathy Screening [facility] Start: 1936 Hemoglobin A1c measurement Diabetes: Hemoglobin A1C [facility] Start: 1936 Lipid panel Lipid Panel [facility] Start: 1936 Medicare Annual Well ness Visit Medicare Annual Wellness Visit (AWV) [facility] Start: 1936 Screening for osteoporosis Bone Density Scan [facility] Bilirubin measurement [facility] Body weight [facility] Calcium carbonate/To angel in Stone [facility] Calcium hydrogen phosphate dihydrate/Total in [facility] Calcium oxalate monohydrate/Total in [facility] Calcium phosphate level [facility] Calculus analysis wi th calculus photography [Interpretation] in [facility] Calculus analysis, qualitative [facility] Calculus analysis, quantitative [facility] Calculus analysis, quantitative, infrared spectroscopy [facility] CBC W Auto Different ial panel - Blood CBC and differential Lab Routine Anemia, unspecified type Ordered: 06/13/2024 [facility] Comment on above: Ordered: 06/13/2024 Cellular material [Mass/mass] of Stone by Estimated [facility] Cholesterol [Mass/volume] in Serum or Plasma [facility] Cobalamin (Vitamin B 12) [Mass/volume] in Serum or Plasma Vitamin B12 Lab Routine Anemia, unspecified type Ordered: 06/13/2024 [facility] Work Phone: Comment on above: Ordered: 06/13/2024 Comprehensive metabo lic 2000 panel - Serum or Plasma Comprehensive metabolic panel Lab Routine Prediabetes Congestive heart failure, NYHA class 2, unspecified congestive heart failure type (CMS/HCC) Ordered: 06/13/2024 [facility] Comment on above: Ordered: 06/13/2024 Cystine measurement [facility] Determination of calculus chemical composition [facility] Evaluation procedure [facility] Ferritin [Mass/volum e] in Serum or Plasma Ferritin Lab Routine Anemia, unspecified type Ordered: 06/13/2024 [facility] Comment on above: Ordered: 06/13/2024 Hydroxyapatite [Ener gy Difference] in 24 hour Urine [facility] Iron and Iron bindin g capacity panel - Serum or Plasma Iron and TIBC Lab Routine Anemia, unspecified type Ordered: 06/13/2024 [facility] Comment on above: Ordered: 06/13/2024 Laboratory data interpretation [facility] Newberyite/Total in [facility] Patient Education [facility] Work Phone: Patient referral [facility] Work Phone: Respiratory pathogen s DNA and RNA panel - Nasopharynx by SHARRI with non-probe detection [facility] Specimen source subj ect [Type] [facility] Triamterene measurement [facility] Triple phosphate/Tot al in [facility] TT-Spztzxcudr-U [place] [facility] [address] [place] Work Phone: [facility] NEGATED: Highlighted row has been ruled out! Planned Goals not documented CR-Lgyhztppmu-ISG [place] [facility] [address] [place] Work Phone: Immunizations Immunization Date Immunization Notes Care Provider Fa [facility] 12-20-2023 tetanus toxoid, redu luciano diphtheria toxoid, and acellular pertussis vaccine, adsorbed MD María Anderson Work Phone: [facility] 05-14-2023 Influenza, Seasonal, Quadrivalent, Adjuvanted Rosalinda Risaliti CUTTER DOWN Work Phone: [facility] 05-14-2023 influenza virus vaccine, unspecified formulation Rosalinda Risaliti C[employer]TER [employer] Work Phone: [facility] 05-14-2022 influenza, high dose seasonal, preservative-free María Anderson Work Phone: [facility] 250 DO Work Phone: 05-14-2022 influenza virus vaccine, unspecified formulation [address] Work Phone: 03-28-2021 Fluzone High-Dose Quadrivalent 0.7 ML Intramuscular Suspension Prefilled Syringe Trey العلي Work Phone: [facility] 250 DO Work Phone: 03-28-2021 Pfizer-BioNTFrontleaf COVID-19 Vacc 30 MCG/0.3ML Intramuscular Suspension Trey العلي Work Phone: [facility] 250 DO Work Phone: 07-26-2020 Pfizer-BioNTech COVID-19 Vacc 30 MCG/0.3ML Intramuscular Suspension Trey Yanman Work Phone: [facility] 07-05-2020 Pfizer-BioNTech COVID-19 Vacc 30 MCG/0.3ML Intramuscular Suspension Trey Yanman Work Phone: [facility] 05-25-2020 influenza virus vaccine, unspecified formulation Trey العلي Work Phone: [facility] Work Phone: 05-25-2020 Seasonal trivalent influenza vaccine, adjuvanted, preservative free Trey العلي Work Phone: KE-Uqlxpjzwlp-FGE [facility] [address] [place] Work Phone: 05-04-2019 Seasonal trivalent influenza vaccine, adjuvanted, preservative free Trey العلي Work Phone: SG-Lfkhsdiynh-AYG [facility] [address] [place] Work Phone: 03-03-2018 Seasonal trivalent influenza vaccine, adjuvanted, preservative free Trey العلي Work Phone: TN-Nqvdesjxwn-YFM [facility] [address] [place] Work Phone: 05-18-2017 pneumococcal conjuga te vaccine, 13 valent Trey العلي Work Phone: NP-Nubicybjbs-ERN [facility] [address] [place] Work Phone: 05-01-2017 influenza, high dose seasonal, preservative-free Trey العلي Work Phone: [facility] 04-30-2017 influenza, high dose seasonal, preservative-free Fani Johnston Other [employer] Other 04-30-2017 influenza virus vaccine, unspecified formulation MD María Anderson Work Phone: [facility] 05-20-2016 influenza virus vaccine, unspecified formulation MD María Anderson Work Phone: [facility] 05-20-2016 influenza, high dose seasonal, preservative-free Fani Johnston Other [facility] [employer] Other 05-18-2015 seasonal influenza, intradermal, preservative free Trey العلي Work Phone: [facility] [place] [address] [place] Work Phone: 04-26-2014 influenza, high dose seasonal, preservative-free Fani Johnston Other [facility] [employer] Other 04-26-2014 influenza virus vaccine, unspecified formulation MD María Anderson Work Phone: [facility] 04-08-2013 seasonal influenza, intradermal, preservative free Rosalinda Rodriguezalianthony [employer]TER [employer] Work Phone: [facility] 11-01-2012 tetanus and diphther ia toxoids, adsorbed, preservative free, for adult use (5 Lf of tetanus toxoid and 2 Lf of diphtheria toxoid) Fani Johnston Other [facility] 10-02-2010 pneumococcal polysaccharide vaccine, 23 valent Trey العلي Work Phone: [facility] influenza virus vaccine, unspecified formulation Trey العلي Work Phone: [facility] Work Phone: Comment on above: 2010Mar 20122012 pneumococcal polysaccharide vaccine, 23 valent Trey العلي Work Phone: [facility] Work Phone: Comment on above: 2010 Payers Date Payer Category Payer Self-pay [id number] 2021 Private Health Insurance [employer] [id number] 2021 Unknown 2001 Medicare [id number]. [id number] 1959 Medicare [id number] [id number] 1959 Unknown [id number] 2.16.840.1.455636.19 1936 Unknown [id number] 2.16.840.1.146022.3.579.2. 1068 1936 Unknown [id number] 2.16.840.1.955420.3.579.2. 593 1936 Unknown [id number] 2.16.840.1.950138.3.579.2. 593 1936 Unknown [id number] 2.16.840.1.033048.3.579.2. 593 1936 Unknown [id number] 2.16.840.1.590288.3.579.2. 593 1936 Unknown [id number] 2.16.840.1.791949.3.579.2. 593 1936 Unknown [id number] 2.16.840.1.325830.3.579.2. 593 1936 Unknown [id number] 2.16.840.1.656385.3.579.2. 593 1936 Unknown [id number] 2.16.840.1.813425.3.579.2. 593 1936 Unknown [id number] 2.16.840.1.306868.3.579.2. 593 1936 Unknown [id number] 2.16.840.1.787840.3.579.2. 593 1936 Unknown [id number] 2.16.840.1.949884.3.579.2. 593 1936 Unknown [id number] 2.16.840.1.133182.3.579.2. 593 1936 Unknown [id number] 2.16.840.1.365472.3.579.2. 593 1936 Unknown [id number] 2.16.840.1.284532.3.579.2. 593 1936 Unknown [id number] 2.16.840.1.564908.3.579.2. 593 1936 Unknown [id number] 2.16.840.1.778141.3.579.2. 593 1936 Unknown [id number] 2.16.840.1.833768.3.579.2. 593 1936 Unknown [id number] 2.16.840.1.557026.3.579.2. 593 1936 Unknown [id number] 2.16.840.1.093693.3.579.2. 593 1936 Unknown [id number] 2.16.840.1.207373.3.579.2. 593 1936 Unknown [id number] 2.16.840.1.224876.3.579.2. 593 1936 Unknown [id number] 2.16.840.1.811122.3.579.2. 593 1936 Unknown [id number] 2.16.840.1.142890.3.579.2. 593 1936 Unknown [id number] 2.16.840.1.641562.3.579.2. 356 1935 Unknown [id number] 2.16.840.1.014031.3.579.2. 1246 1936 Unknown [id number] 2.16.840.1.032117.3.579.2. 1244 1936 Unknown [id number] 2.16.840.1.318880.3.579.2. 1244 1936 Unknown [id number] 2.16.840.1.469946.3.579.2. 1244 1936 Unknown [id number] 2.16.840.1.341721.3.579.2. 727 1936 Unknown [id number] 2.16.840.1.313590.3.579.2. 727 1936 Unknown [id number] 2.16.840.1.216158.3.579.2. 718 1936 Unknown [id number] 2.16.840.1.063909.3.579.2. 718 1936 Unknown [id number] 2.16.840.1.411892.3.579.2. 718 1936 Unknown [id number] 2.16.840.1.870331.3.579.2. 71 1936 Unknown [id number] 2.16.840.1.012658.3.579.2. 71 1936 Unknown [id number] 2.16.840.1.696811.3.579.2. 71 1936 Unknown [id number] 2.16.840.1.943432.3.579.2. 71 1936 Unknown [id number] 2.16.840.1.808666.3.579.2. 71 1936 Unknown [id number] 2.16.840.1.044956.3.579.2. 718 1936 Unknown [id number] 2.16.840.1.587704.3.579.2. 718 1936 Unknown [id number] 2.16.840.1.590337.3.579.2. 718 1936 Unknown [id number] 2.16.840.1.711711.3.579.2. 71 1936 Unknown [id number] 2.16.840.1.902505.3.579.2. 718 1936 Unknown [id number] 2.16.840.1.490747.3.579.2. 71 1936 Unknown [id number] 2.16.840.1.515472.3.579.2. 727 1936 Unknown [id number] 2.16.840.1.427875.3.579.2. 727 1936 Unknown [id number] 2.16.840.1.688580.3.579.2. 727 1936 Unknown [id number] 2.16.840.1.819799.3.579.2. 1258 1936 Unknown [id number] 2.16.840.1.516046.3.579.2. 125 1936 Unknown [id number] 2.16.840.1.369172.3.579.2. 125 1936 Unknown [id number] 2.16.840.1.317093.3.579.2. 1259 1936 Unknown [id number] 2.16.840.1.899570.3.579.2. 1259 1936 Unknown [id number] 2.16.840.1.154543.3.579.2. 1259 1936 Unknown [id number] 2.16.840.1.532620.3.579.2. 1259 1936 Unknown [id number] 2.16.840.1.910716.3.579.2. 1259 1936 Unknown [id number] 2.16.840.1.422973.3.579.2. 1259 Medicare Medicare Rehab-IP Part A [id number] Unknown [id number] Unknown [id number] 2.16.840.1.109134.3.579.2. 531 Unknown [id number] 2.16.840.1.474461.3.579.2. 531 Unknown [id number] 2.16.840.1.209256.3.579.2. 531 Unknown [id number] 2.16.840.1.996751.3.579.2. 531 Unknown [id number] 2.16.840.1.148991.3.579.2. 531 Unknown [id number] 2.16.840.1.047488.3.579.2. 531 Unknown [id number] 2.16.840.1.092802.3.579.2. 531 Unknown [id number] 2.16.840.1.154256.3.579.2. 531 Unknown [id number] 2.16.840.1.779303.3.579.2. 531 Unknown [id number] 2.16.840.1.846062.3.579.2. 531 Social History Date Type Detail Facility Start: 09-29-2023 End: 06-13-2024 Former smoker Former smoker QA-Qsucluqvwu-NGY [facility] [address] [place] Work Phone: Comment on above: daily; QUIT 2000 1PPD; 2-3 coffees daily; Start: 09-29-2023 End: 06-13-2024 Sex Assigned At [facility] Start: 02-04-2022 End: 03-30-2024 Tobacco smoking status NHIS Ex-smoker (finding) [facility] Start: 1935 Sex Assigned At Male [facility] Start: 01-19-2023 End: 02-26-2024 Tobacco smoking status NHIS Never smoked tobacco (finding) [facility] Tobacco smoking status LAIS Tobacco smoking consumption unknown [facility] Work Phone: Start: 1935 Sex Assigned At Not on file [facility] Work Phone: Start: 03-24-2023 End: 05-18-2024 Exposure to SARS-CoV-2 (event) Not sure [facility] End: 06-15-2001 History of tobacco use Current smoker [facility] Work Phone: End: 06-15-2001 History of tobacco use Cigarette Smoker [facility] Work Phone: Start: 09-29-2023 Tobacco use and exposure Former smokeless tobacco user [facility] Work Phone: History of tobacco use Chews Tobacco [facility] Work Phone: Start: 09-29-2023 End: 11-20-2024 Alcoholic beverage intake Current drinker of alcohol (finding) [facility] Work Phone: Start: 01-07-2023 End: 03-30-2024 Tobacco use and exposure Smokeless tobacco non-user [facility] Start: 12-13-2022 Tobacco Comment Ex-heavy cigar ettes smoker (20-30/day) [facility] Start: 01-07-2023 Alcohol Comment .caffeine intake:Coffee, 3-4 cups per day. [facility] Start: 06-15-2024 Sex Male (finding) [facility] NEGATED: Highlighted row - - RW-Dsuufgrxyp-MPE [facility] [address] [place] Work Phone: Medical Equipment Procedure Code Equipment Code Equipment Origin al Text Equipment Identifier Dates Cystoscopy, with ureteral calculus manipulation and stent placement [id number] FDA Start: 05-05-2023 Arthroplasty, hip, total, anterior approach ()[id number] FDA Start: 12-18-2020 Arthroplasty, hip, total, anterior approach ()[id number] FDA Start: 12-18-2020 Arthroplasty, hip, total, anterior approach ()[id number] FDA Start: 12-18-2020 Arthroplasty, hip, total, anterior approach ()[id number] FDA Start: 12-18-2020 Arthroplasty, hip, total, anterior approach ()[id number] FDA Start: 12-18-2020 Arthroplasty, hip, total, anterior approach ()[id number] FDA Start: 12-18-2020 Goals Date Patient Goal Desired Activity /State Functional Status Date Assessment Result Facility 02-27-2024 Functional status Patient at [facility] Work Phone: 01-22-2024 Functional status Patient at [facility] Work Phone: 01-21-2024 Functional status Patient at [facility] Work Phone: 12-29-2023 Functional status Patient is Pro gressing Toward [facility] Work Phone: 12-23-2023 Functional status Patient is Pro gressing Toward [facility] Work Phone: 12-20-2023 Functional status Patient is Pro gressing Toward [facility] Work Phone: 06-06-2023 Functional status Patient at [facility] Work Phone: NEGATED: Highlighted row Functional performance Functional status health issues are not documented Disease VI-Ontidkrxzw-QLH [facility] [address] [place] Work Phone: Mental Status Date Assessment Result Facility 02-27-2024 Cognitive function Patient at [facility] Work Phone: 01-22-2024 Cognitive function Patient at [facility] Work Phone: 12-29-2023 Cognitive function Patient at Baseline [facility] Work Phone: 12-23-2023 Cognitive function Patient is Pr ogressing Toward [facility] Work Phone: 12-20-2023 Cognitive function Patient at [facility] Work Phone: 06-06-2023 Cognitive function Cognitive Sta tus Patient at [facility] Work Phone: NEGATED: Highlighted row Cognitive function [Interpretation] Cognitive status health issues are not documented Disease UI-Lgueqwengd-YEN [facility] [address] [place] Work Phone: Clinical Notes 03-02-2020 to 11-17-2024 María Anderson MD - 11/17/2024 10:15 AM Stella Laws NP - 10/04/2024 1:00 PM Devin Caro NP - 06/13/2024 2:00 PM Tommy Kingsley MD - 05/18/2024 9:30 AM ESTPatient Instructions Note Date & Type Note Facility 11-17-2024 History of Present illness Narrative Images from the original note were not included. Fani Chua is a 89 y.o. male presents with chief complaint of Sinusitis HPI: History of Present Illness The patient presents for evaluation of sinus issues and throat pain. Sinus Issues and Throat Pain He reports a persistent tickling sensation in his throat, accompanied by 3 to 5 sneezing episodes, occasional coughing, and a feeling of warmth. Nasal discharge occurs throughout the day but not at night. Coughing episodes persist until he expectorates clear sputum, with no hemoptysis reported. He does not experience any systemic illness but reports fatigue. These symptoms have been present since early 2024, with some congestion noted over the past few years. He monitors his temperature three times a week and has not experienced any fever. There is no difficulty swallowing or pain on swallowing. Two nights ago, he experienced a burning sensation and pressure in his throat after taking his medication, leading to choking and shortness of breath. He attempted to cough up the obstruction and eventually expectorated a red pill. This was the first such incident. He has previously been treated for lung and sinus infections with antibiotics. Claritin was tried without any noticeable improvement in his symptoms. - Onset: Symptoms present since early 2024. - Location: Throat and nasal passages. - Duration: Persistent tickling sensation, sneezing episodes, occasional coughing, and nasal discharge throughout the day. - Character: Tickling sensation, sneezing, coughing, feeling of warmth, nasal discharge, clear sputum, fatigue. - Alleviating/Aggravating Factors: Claritin tried without improvement; choking and shortness of breath after taking medication. - Timing: Nasal discharge occurs throughout the day but not at night; coughing episodes persist until expectorating clear sputum. - Severity: No hemoptysis, no systemic illness, no fever, no difficulty swallowing or pain on swallowing. Lightheadedness and Ear Issues He also reports lightheadedness, particularly when bending over or performing routine chores, but does not experience vertigo. A long-standing issue with his left ear feeling plugged is associated with his lightheadedness. He attempted to irrigate his ear with juice as advised by a nurse practitioner, but this did not resolve the issue. He does not use Q-tips in his ears. - Onset: Long-standing issue with left ear feeling plugged. - Location: Left ear. - Character: Lightheadedness, ear feeling plugged. - Alleviating/Aggravating Factors: Attempted irrigation with juice without resolution. - Timing: Lightheadedness particularly when bending over or performing routine chores. Bruising and Bleeding Bruising on his arms and legs is attributed to Coumadin therapy. Monthly INR checks report a stable INR of 2.3. In late June 2024, he woke up with a large purple spot on his body, which had bled significantly overnight. He received wound care from [facility] on Wednesdays and [facility] Nurse on Mondays and Fridays until 2 to 3 weeks ago. - Onset: Bruising and bleeding noted in late June 2024. - Location: Arms, legs, and body. - Character: Large purple spot, significant bleeding overnight. - Alleviating/Aggravating Factors: Coumadin therapy; wound care from [facility] Nurse. - Timing: Monthly INR checks; wound care until 2 to 3 weeks ago. - Severity: Stable INR of 2.3. Nosebleeds He has been experiencing nosebleeds for the past few months, which he manages by applying cotton balls to the nostrils. He has not used nasal saline. - Onset: Past few months. - Location: Nostrils. - Character: Nosebleeds. - Alleviating/Aggravating Factors: Applying cotton balls to the nostrils; has not used nasal saline. Lip Swelling He has had a few issues of lip swelling, which he attributes to his dental work. - Onset: Attributed to dental work. - Location: Lips. - Character: Swelling. I have reviewed and reconciled the history and medication list with the patient today. 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..] (PROTONIX) 40 mg, Oral, Daily before breakfast predniSONE (Deltasone) 20 MG tablet Take two tablets once a day for 5 days traMADol (ULTRAM) 50 mg, Oral, Every 8 hours PRN warfarin (COUMADIN) 10 mg, Oral, Nightly ALLERGIES: Allergies Allergen Reactions Amoxicillin Swelling Welts, facial swelling Welts, facial swelling Welts, facial swelling Bacitracin Neomycin Penicillins Other, Rash, Swelling and Angioedema Polymyxin B Wound Dressing Adhesive Rash Other Reaction(s): Rash PHYSICAL EXAM: Visit Vitals BP 118/64 Pulse 81 Wt 155 lb SpO2 97% BMI 22.89 kg/m Smoking Status Former BSA 1.85 m BP Readings from Last 3 Encounters: 11/17/24 118/64 10/04/24 120/80 06/13/24 120/80 Wt Readings from Last 3 Encounters: 11/17/24 155 lb 06/13/24 163 lb 03/30/24 162 lb Physical Exam HENT: Head: Comments: Cleared mild amount of cerumen Right Ear: Tympanic membrane, ear canal and external ear normal. Left Ear: Tympanic membrane, ear canal and external ear normal. Results - Laboratory Studies: - INR: 2.3 - Platelets: Slightly low ASSESSMENT AND PLAN: Assessment & Plan 1. Sinus congestion (Primary) - Symptoms suggest a possible nonallergic rhinitis or vasomotor rhinitis, characterized by nasal irritation and drainage. The initiation of enalapril coincided with the onset of symptoms, raising the possibility of a drug reaction. - A note will be sent to Dr. Kingsley regarding the potential need to discontinue enalapril or switch to losartan to assess symptom improvement. - The use of nasal sprays is not recommended due to the risk of exacerbating nosebleeds. Instead, owyd-wup-pbutudn nasal saline spray is advised, with 2 sprays in each nostril 4 to 5 times daily. 2. Throat discomfort - Reports throat pain and a burning sensation when swallowing pills, which may be related to the sinusitis or the potential drug reaction. No exudate was observed in the throat examination. - If mild lip swelling occurs, contact us; if it does not improve, seek emergency care. 3. Light headedness - Likely due to a drop in blood pressure or slow equilibration of blood pressure and heart rate during positional changes. This could be a side effect of enalapril, which was started around the same time as the onset of symptoms. - A note will be sent to Dr. Kingsley to consider discontinuing enalapril and switching to an alternative medication like losartan. - Monitor for any lip or tongue swelling and seek emergency care if these symptoms occur. 4. Dysfunction of both eustachian tubes Ear exam normal other than mild amount of cerumen. 5. Bruising - Likely due to the combination of blood thinners (Coumadin and aspirin) and age-related skin thinning. - If bruising becomes excessive, the Coumadin dosage may need adjustment. - Inform the Coumadin clinic if any antibiotics are prescribed to ensure proper monitoring and adjustment of medication. 6. Epistaxis - Likely due to nasal dryness exacerbated by blood thinners and slightly low platelet count. - Snlq-ibf-lflgecp nasal saline spray is recommended, with 2 sprays in each nostril 4 to 5 times daily, to maintain nasal moisture and reduce the risk of nosebleeds. - Avoid using nasal steroid sprays due to the risk of increased dryness and nosebleeds. - Regular use of nasal saline spray should help reduce the frequency of nosebleeds. 7. Chronic systolic congestive heart failure, NYHA class 2 (CMS/HCC) - Currently on enalapril for heart function but may need a medication adjustment due to potential side effects. - A note will be sent to Dr. Kingsley to consider switching to an alternative medication like losartan. - Monitor for any new or worsening symptoms and report them promptly. Follow-up - Follow-up appointment with Dr. Kingsley on December 12. documented in this encounter [facility] 11-08-2024 Note Oncology Progress No te Chief Complaint Follow up on prostate cancer and test results today. Diagnoses 1. Thrombocytopenia (D69.6: Thrombocytopenia, unspecified) 2. 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 History of prostate cancer (Z85.46: Personal history of malignant neoplasm of prostate) 5. 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 He had recent labs done by his primary care physician Dr. María Cary on 08/23/2024 which revealed WBC of 4.7 with hemoglobin 11.1, MCV 95.3 slightly elevated, MCH 30.7 and MCHC 32.2 with RDW of 14.6 normal and platelet count of 126 low. There WBC differential revealed absolute neutrophil count 2.5 with absolute lymphocyte count 1.3 with absolute monocyte of 0.7 basophil is also normal however immature Gran absolute 0.06 slightly elevated. Patient monocytes percentage was high 15.2% and therefore patient informatics physician liaison for Evaluation with increased percentage of monocytes. B12 was 684 iron was 55 normal, folate is 12.5 normal, haptoglobin 193 normal. Iron saturation 24% ferritin 199 and TIBC 231 which is slightly decreased. Creatinine 0.86 normal calcium is normal 9.0 LFTs are normal total bili of 0.7 alk phos 128 slightly elevated and AST 28 ALT 21. Serum protein to pheresis reviewed no M spike observed. Serum immunofixation revealed no monoclonality detected. The kappa light chain was slightly elevated 27.8 however the lambda was normal at 20.8 and the kappa/lambda ratio was normal 1.34. Immunoglobulins IgA IgM and IgG were all normal. Past surgical history includes colonoscopy cystoscopy neuroma surgery cardioversion prostatectomy arthroplasty pyelogram toe surgery total hip arthroplasty and TURP of the bladder cancer. Social history he quit tobacco smoking in 2001 after 23 years of smoking. He used to be heavy . Current alcohol drinking is 14 cans/week of beers about 2 a day 1 before dinner and 1 with dinner. Current medication include albuterol inhaler, aspirin, Lipitor, Vasotec 2.5 mg daily, multiple vitamins from [employer], pantoprazole, tramadol, warfarin as well. 11/08/24: He is here for the results of the labs done for anemia, monocytosis and thrombocytopenia. Labs on 10/20/2024 revealed WBC is normal this time at 6.1 with mild anemia 11.7 hemoglobin but normal MCV and RBC indices except RDW slightly high 15.2. The platelets slightly low at 1 27,000. WBC differential is unremarkable. Renal function is normal with a creatinine 0.9 and normal calcium 9.1. Alk phos is 101 slightly elevated however total protein ALT AST and total bili are normal. The CRP is normal at 0.1. LDH is normal at 218. The reticulocyte count is normal 1.8%. Folate is normal 9.0 B12 normal 510. Iron studies revealed iron is normal 45 but iron saturation is slightly low 15%, however, TIBC is normal at 302 and ferritin is low normal at 42. Copper level is high 141 and hepatitis B and C panel were unremarkable. HIV testing was nonreactive as well. Peripheral blood flow cytometry revealed: -Relative monocytosis 16% leukocytes otherwise B-cell clonality cannot be evaluated C the comments below: [place] and lambda staining cannot be interpreted due to nonspecific light chain findings. This can be seen in increased serum proteins. Consider B-cell gene rearrangement if clonal B-cell process is suspected. These findings are nonspecific and can be seen in reactive processes and also neoplastic processes as well. Consider further evaluation of a myeloid neoplasm such as CMML if absolute monocytosis persist with monocyte over 0.5 and the percentage of monocytes is over 10%. Patient denied any B symptoms and no enlarged LAP. 12 points ROS was obtained and was otherwise negative. Review of Systems General: Patient denied fevers or headaches or dizziness. Lymphatic: No enlarged lymphadenopathy. Cardiovascular: Patient denied CP, SOB or leg edema. Respiratory: no cough or SOB or hemoptysis. GI: No nausea or vomiting or diarrhea or constipation or rectal bleeding or emesis or melena. : no gross hematuria or dysuria or frequency currently. Extremities: No edema of the lower extremities. Hematological: No focal masses anywhere and no easy bruising or bleeding tendency. Musculoskeletal: No de (more content not included)... [facility] 10-17-2024 Note Oncology Progress No te Chief Complaint New pt here for anemia thrombocytopenia, no specific questions or concerns. 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 He had recent labs done by his primary care physician Dr. María Cary on 08/23/2024 which revealed WBC of 4.7 with hemoglobin 11.1, MCV 95.3 slightly elevated, MCH 30.7 and MCHC 32.2 with RDW of 14.6 normal and platelet count of 126 low. There WBC differential revealed absolute neutrophil count 2.5 with absolute lymphocyte count 1.3 with absolute monocyte of 0.7 basophil is also normal however immature Gran absolute 0.06 slightly elevated. Patient monocytes percentage was high 15.2% and therefore patient informatics physician liaison for Evaluation with increased percentage of monocytes. B12 was 684 iron was 55 normal, folate is 12.5 normal, haptoglobin 193 normal. Iron saturation 24% ferritin 199 and TIBC 231 which is slightly decreased. Creatinine 0.86 normal calcium is normal 9.0 LFTs are normal total bili of 0.7 alk phos 128 slightly elevated and AST 28 ALT 21. Serum protein to pheresis reviewed no M spike observed. Serum immunofixation revealed no monoclonality detected. The kappa light chain was slightly elevated 27.8 however the lambda was normal at 20.8 and the kappa/lambda ratio was normal 1.34. Immunoglobulins IgA IgM and IgG were all normal. Past surgical history includes colonoscopy cystoscopy neuroma surgery cardioversion prostatectomy arthroplasty pyelogram toe surgery total hip arthroplasty and TURP of the bladder cancer. Social history he quit tobacco smoking in 2001 after 23 years of smoking. He used to be heavy . Current alcohol drinking is 14 cans/week of beers about 2 a day 1 before dinner and 1 with dinner. Current medication include albuterol inhaler, aspirin, Lipitor, Vasotec 2.5 mg daily, multiple vitamins from [employer], pantoprazole, tramadol, warfarin as well. Patient denied any B symptoms and no enlarged LAP. 14 points ROS was obtained and was otherwise negative. Review of Systems General: Patient denied fevers or headaches or dizziness. Lymphatic: No enlarged lymphadenopathy. Cardiovascular: Patient denied CP, SOB or leg edema. Respiratory: no cough or SOB or hemoptysis. GI: No nausea or vomiting or diarrhea or constipation or rectal bleeding or emesis or melena. : no gross hematuria or dysuria or frequency currently. Extremities: No edema of the lower extremities. Hematological: No focal masses anywhere and no easy bruising or bleeding tendency. Musculoskeletal: No deformities of the joints or the spine. Neurological: no vision changes or weakness or sensory changes. Physical Exam ECOG PS 1. General: alert, no acute distress HENMT: Normocephalic, atraumatic. Neck: supple and no LAP or thyromegaly. Cardiovascular: regular rate and rhythm, No murmurs Respiratory: Lungs CTA, respirations non labored. Abdomen: Soft nontender nondistended without hepatosplenomegaly or masses clinically. Extremities: no deformity, no edema. Lymph system: Currently she has no lymphadenopathy in her cervical area subclavian area/axillary areas and inguinal areas bilaterally. Neurological: oriented x 4, LOC appropriate for age, CN II-XII intact, motor strength equal & normal bilaterally, sensation normal bilaterally, speech normal Skin: No rash. Psychiatric: Normal mood and interaction. Diagnoses 1. Anemia (D64.9: Anemia, unspecified) With a slight macrocytosis. Will evaluate to rule out hemolysis versus factor deficiency like copper B12 folate. Will also check for LDH and reticulocyte count to rule out hemolysis. 2. Thrombocytopenia (D69.6: Thrombocytopenia, unspecified) Cannot rule out related to his Vasotec however could be multifactorial. Will check for the above-mentioned labs in the anemia section. 3. 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 It is not concerning to me however we will check for chronic hepatitis panel and HIV testing. 4. History of prostate cancer (Z85.46: Personal history of malignant neoplasm of prostate) 5. History of bladder cancer (Z85.51: Personal history of malignant neoplasm of bladder) My suspicion as the etiology of his anemia and thrombocytopenia is likely enalapril use on top of his 2 beers daily. however, will investigate other etiologies like MPN, fac (more content not included)... [facility] 10-04-2024 History of Present illness Narrative Images from the original note were not included. Subjective Patient ID: Fani Chua (: 1935) is a 89 y.o. male who presents for Sinus Problem. HPI History of Present Illness The patient presents for evaluation of a sinus infection. He has been under the care of a home health nurse from [facility] since June 2024 for a wound. During this period, the nurse suspected a lung infection, which was subsequently treated with antibiotics and steroids approximately 3 weeks ago. His condition improved following this treatment, but he continues to experience a persistent cough accompanied by wheezing. Nasal congestion, occasional nosebleeds, and shortness of breath are also reported. He recalls having a sore throat a few weeks ago, but it was not severe. Discomfort in the left ear is noted, and he was advised by another nurse to use juice as a remedy. The patient has a history of atrial fibrillation and lung issues. Current Outpatient Medications Medication Instructions albuterol HFA (Ventolin HFA) 90 mcg/act inhaler 2 puffs, Inhalation, Every 6 hours PRN, Do not use at same time as Tramadol aspirin 81 mg, Daily atorvastatin (LIPITOR) 40 mg, Oral, Daily doxycycline (VIBRAMYCIN) 100 mg, Oral, 2 times daily, Take with at least 8 ounces (large glass) of water, do not lie down for 30 minutes after enalapril (VASOTEC) 2.5 mg, Daily Multiple Vitamins-Minerals (PRESERVISION AREDS 2 PO) Take by mouth pantoprazole (PROTONIX) 40 mg, Oral, Daily before breakfast predniSONE (Deltasone) 20 MG tablet Take two tablets once a day for 5 days traMADol (ULTRAM) 50 mg, Oral, Every 8 [...] CHF (congestive heart failure), NYHA class II ([facility]) Chronic atrial fibrillation (HCC) ([facility]) Degeneration of lumbar intervertebral disc Centrilobular emphysema ([facility]/HCC) Gastroesophageal reflux disease without esophagitis PVD (peripheral vascular disease) ([facility]) Tobacco abuse Venous insufficiency (chronic) (peripheral) Malignant neoplasm of prostate ([facility]) Lumbosacral spondylosis without myelopathy Laryngopharyngeal reflux Diverticulosis, sigmoid Carcinoma in situ of bladder 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 ([facility]) Anemia S/P aortic valve replacement History of gout Mixed hyperlipidemia ([facility]/HCC) Prediabetes Pulmonary hypertension ([facility]) Chronic venous hypertension (idiopathic) with inflammation of left lower extremity History of kidney stones Nonrheumatic mitral valve regurgitation Review of Systems Constitutional: Negative for chills, fatigue and fever. HENT: Positive for congestion, rhinorrhea and sinus pressure. Negative for sore throat. Respiratory: Positive for cough and wheezing. Negative for shortness of breath. Cardiovascular: Negative for chest pain, palpitations and leg swelling. Gastrointestinal: Negative for diarrhea, nausea and vomiting. Neurological: Negative for dizziness, light-headedness and headaches. Objective Vital signs: BP 120/80 (Patient Position: Sitting) Pulse 74 Resp 16 SpO2 98% Physical Exam Constitutional: Appearance: Normal appearance. HENT: Head: Normocephalic. Ears: Comments: Scattered cerumen L ear Nose: Rhinorrhea present. Mouth/Throat: Mouth: Mucous membranes are moist. Pharynx: Posterior oropharyngeal erythema (mild-PND) present. Eyes: Pupils: Pupils are equal, round, and reactive to light. Cardiovascular: Rate and Rhythm: Normal rate and regular rhythm. Pulmonary: Effort: Pulmonary effort is normal. Breath sounds: Wheezing (bilateral posterior bases-cough noted) present. Musculoskeletal: Comments: Patient ambulates with cane Skin: General: Skin is warm and dry. Neurological: Mental Status: He is alert and oriented to person, place, and time. Psychiatric: Mood and Affect: Mood normal. Assessment/Plan Assessment & Plan 1. Sinus infection. - Symptoms include nasal congestion, drainage, and occasional nosebleeds, suggesting a sinus infection. - Discussed the condition and the need for a different antibiotic due to incomplete resolution with the previous treatment. - Prescribed doxycycline 100 mg twice daily for 7 days and a 5-day course of prednisone. Prescriptions sent to [facility] in [place]. Advised to take doxycycline with food and to contact the office if no improvement is noted. 2. Wheezing. - Wheezing noted during physical examination, associated with the sinus infection extending into the chest. - Previous treatment with Z-Rick and prednisone provided partial relief. - Repeating a 5-day course of prednisone to reduce inflammation and alleviate wheezing. - Further evaluation may be necessary if symptoms persist. 3. Left ear discomfort. - Patient reports discomfort and wax buildup in the left ear. - Examination showed some wax but not significantly clogged. - Advised to monitor and manage earwax buildup as needed. Problem List Items Addressed This Visit None Visit Diagnoses Acute non-recurrent pansinusitis - Primary Relevant Medications doxycycline (Vibramycin) 100 MG capsule predniSONE (Deltasone) 20 MG tablet Acute cough Wheeze Relevant Medications predniSONE (Deltasone) 20 MG tablet Cerumen debris on tympanic membrane of left ear Health Maintenance Topic Date Due Diabetes: Retinopathy Screening Never done Diabetes: Hemoglobin A1C 02/02/2024 Diabetes: Urine Protein Screening 11/01/2024 Influenza Vaccine (Season Ended) 2025 Pneumococcal Vaccine: 65+ Years Completed Immunization History Administered Date(s) Administered Influenza, High Dose Seasonal, Preservative Free 05/14/2022 Influenza, High-dose Seasonal, Quadrivalent, Preservative Free 03/28/2021 Influenza, Seasonal, Quadrivalent, Adjuvanted 05/14/2023 Influenza, seasonal, intradermal, preservative free 04/08/2013, 05/18/2015 Green Genes Purple Cap SARS-CoV-2 Vaccination 07/05/2020, 07/26/2020, 03/28/2021 Pneumococcal Conjugate PCV 13 05/18/2017 Pneumococcal Polysaccharide PPSV23 10/02/2010 Td (adult), 5 Lf tetanus toxoid, preservative free, adsorbed 11/01/2012 Tdap 12/20/2023 -Patient's chronic conditions have been reviewed in [...] patient encounter. -Follow up for Next scheduled follow-up. Maria Fernanda Laws NP documented in this encounter [facility] 06-15-2024 Radiology Diagnostic study note [facility] [place] [address] CT Scan Report Signed Patient: Fani Chua MR#: [id number] : 1935 Acct:[id number] Age/Sex: 89 / M ADM Date: 5 Loc: ER Room: Type: [facility] ER Attending Dr: Copies to: Gely Lin [...] Trey Murray M.D.06/15/2024 2:39 PM Dictation Location: [employer] Transcribed By: HENRRY 06/15/24 1439 Dictated By: Trey Murray DO 06/15/24 1433 Signed By: 06/15/24 1439 [facility] 06-13-2024 History of Present illness Narrative Images from the original note [...] engaged in pain management therapy with Buck Cerrato, which he describes as not particularly effective. [...] have a living will or power of dean of students. He expresses a desire for resuscitation in [...] Yes Vision Screening: Yes, patient sees regular operations support manager/host Hearing Screening: Yes, concerned about hearing loss Cognitive Screening Three Word Registration: Banana, [place], Chair Clock Drawing: Normal Clock - 2 Three Word Recall: All 3 words correct - 3 Total Score (0-5 Points): 5 HISTORIES: PAST MEDICAL HISTORY: Past Medical History: Diagnosis Date A-fib ([facility]/HCC) AVN (avascular necrosis of bone) ([facility]) Bladder infection COVID-19 vaccine administered pfizer Diverticulitis Diverticulosis 2011 Diverticulosis of colon without hemorrhage Eczema Kidney stone Labyrinthitis 11/2008 Menstrual bleeding problem Neuroma right foot Prostate cancer ([facility]/HCC) SCC (squamous cell carcinoma) 2013 chest Toe pain 1995 right hallux Type 2 diabetes mellitus (CMS/HCC) Ureteral calculus, left Visual impairment SURGICAL HISTORY: Past Surgical History: Procedure Laterality Date CARDIOVERSION 2007 COLONOSCOPY 2012 COLONOSCOPY 05/27/2018 CYSTOSCOPY 01/2009 CYSTOSCOPY cystoscopy ureteroscopy,left ureteral calculus stricture CYSTOSCOPY 05/05/2023 NEUROMA SURGERY Right LA TOTAL HIP ARTHROPLASTY Left 03/29/2009 PROSTATECTOMY 1996 [...] with eag 3. 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 (CMS/HCC) Doing well. [...] tramadol 50 mg will be sent to [facility]. He is advised to inform us if [...] stable in the past. Sample inhaler of Santos given and instructed him on how to [...] the above issues. documented in this encounter [facility] 05-18-2024 History of Present illness Narrative Subjective Fani Chua is a [...] mg) by mouth. Take as directed by [facility], Disp: , Rfl: Assessment/Plan 1. Congestive heart failure, NYHA class 2, unspecified congestive heart failure type Follow Up In Cardiology 2. BMI 24.0-24.9, adult 3. Former smoker Scribe Attestation By signing my name below, I, Gricelda Pascal LPN , Scribe attest that this documentation has been [...] discussion and plan. documented in this encounter [facility] Work Phone: 05-18-2024 Instructions Gricelda Sena LPN - 05/18/2024 9:30 AM EST [...] May follow up documented in this encounter [facility] Work Phone: 04-25-2024 History of Present illness Narrative Pt calls for refill of Tramadol refill to [facility]. Last fill 04/06. Rx pending. documented in this encounter [facility] 04-18-2024 History of Present illness Narrative Subjective Fani Chua is a [...] with anticoagulation with no complications so far. 9-zped-fmraalud mitral regurgitation based on echocardiogram March 2024. 7-moderate LV systolic dysfunction, ejection fraction 40% by echocardiogram March 2024. Small dose of LEONARD inhibitor was initiated. Titration of the medicine [...] mg) by mouth. Take as directed by [facility], Disp: , Rfl: enalapril (Vasotec) 2.5 mg tablet, Take 1 tablet (2.5 mg) by mouth 2 times a day., Disp: 180 tablet, Rfl: 3 Assessment/Plan 1. Nonrheumatic aortic valve stenosis Follow Up In Cardiology 2. Status post transcatheter aortic valve replacement 3. Coronary artery disease, unspecified vessel or lesion type, unspecified whether angina present, unspecified whether kotlik or transplanted heart 4. Pulmonary hypertension (Multi) 5. Congestive heart failure, NYHA class 2, unspecified congestive heart failure type enalapril (Vasotec) 2.5 mg tablet Follow Up In Cardiology Basic Metabolic Panel Follow Up In Cardiology Basic Metabolic Panel 6. Permanent atrial fibrillation (Multi) 7. PVD (peripheral vascular disease) ([facility]) 8. Former smoker 9. BMI 23.0-23.9, adult Scribe Attestation By signing my name below, Gricelda Coleman LPN , Scribe attest that this documentation has been [...] discussion and plan. documented in this encounter [facility] Work Phone: 04-18-2024 Instructions Gricelda Sena LPN - 04/18/2024 2:00 PM EST [...] month 6 months documented in this encounter [facility] Work Phone: 04-08-2024 Telephone encounter Note Wound pain [facility] 04-08-2024 Miscellaneous Notes Wound pain documented in this encounter [facility] 04-06-2024 History of Present illness Narrative Images from the original note were not included. Subjective Patient ID: Fani Chua (: 1935) is a 88 y.o. male who presents for Wound Check and Referral. Wound Check Patient presents today for F2F for a referral for HH. 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 that caused a [...] has had HH in the past through [facility] and would like the referral to be [...] CHF (congestive heart failure), NYHA class II ([facility]/HCC) Chronic atrial fibrillation (HCC) (CMS/HCC) Degeneration of lumbar intervertebral disc Emphysema of lung (CMS/HCC) Gastroesophageal reflux disease without esophagitis PVD (peripheral vascular disease) (CMS/HCC) Tobacco abuse Venous insufficiency (chronic) (peripheral) Malignant neoplasm of prostate (CMS/HCC) Lumbosacral spondylosis without myelopathy Laryngopharyngeal reflux Diverticulosis, sigmoid Carcinoma in situ of bladder CAD (coronary artery disease) (CMS/HCC) Anemia S/P aortic valve replacement History of gout Mixed hyperlipidemia (CMS/HCC) Prediabetes Pulmonary hypertension (CMS/HCC) Chronic venous hypertension (idiopathic) with inflammation of [...] assistance after a injury while using his automation engineer. He states he did this on Thursday [...] the antibiotic use. I did call both [facility] wound and Nery tejeda. Nery is able to see him this week on Thursday at 11:30. I did confirm this was ok with the patient and he agreed. I did give him the directions for the appt. I will send referral to [facility] for home wound care. I advised that [...] again with Kerlex and secured with a LEONARD bandage. I advised patient does keep this [...] exceeded 1 hour. documented in this encounter [place] [address]-08-2024 History of Present illness Narrative Lesions: Location: right ear Duration: [...] any new/changing lesions documented in this encounter [facility] 03-07-2024 History of Present illness Narrative Images from the original note [...] up. He has previously consulted with an rn documentation specialist for hip issues and another one in [place] for a hip replacement in October 2023. [...] CHF (congestive heart failure), NYHA class II ([facility]) Chronic atrial fibrillation (HCC) ([facility]) Degeneration of lumbar intervertebral disc Emphysema of lung ([facility]) Gastroesophageal reflux disease without esophagitis PVD (peripheral vascular disease) ([facility]) Tobacco abuse Venous insufficiency (chronic) (peripheral) Malignant neoplasm of prostate ([facility]) Lumbosacral spondylosis without myelopathy Laryngopharyngeal reflux Diverticulosis, sigmoid Carcinoma in situ of bladder CAD (coronary artery disease) ([facility]) Anemia S/P aortic valve replacement History of gout Mixed hyperlipidemia ([facility]) Prediabetes Pulmonary hypertension ([facility]) Chronic venous hypertension (idiopathic) with inflammation of [...] has an appt with Dr. Garcia at [facility] 03/08/2024 at 11:15. Problem List Items [...] Fernanda Laws NP documented in this encounter [facility] 02-26-2024 History and physi mary note Note Date/Time February 26, 2024 4:16pm [facility] [address] [place] [address] Hospitalist H&P Signed Patient: Fani Chua MR#: [id number] : 1935 Acct:[id number] Age/Sex: 88 / M Adm Date: 4 Loc: 3T Room: [address] [place] [address] Type: ADM IN Attending Dr: Bright Lopez MD Copies to: MD María Abrams MD~ [facility] DATE OF EXAMINATION: 02/26/24 CHIEF COMPLAINT: [...] that which is noted above in HPI [facility] Medical History (Updated 02/26/24 @ 16:41 [...] Verified 02/26/24 14:05) Rash bacitracin [From Neosporin (vrj-clh-paywu)] Allergy (Unknown, Verified 02/26/24 14:05) itch and rash, rash neomycin [From Neosporin (pgv-npq-glmkv)] Allergy (Unknown, Verified 02/26/24 14:05) itch and rash, rash Penicillins Allergy (Unknown, Verified 02/26/24 14:05) Anaphylaxis polymyxin B [From Neosporin (pta-fei-iirvo)] Allergy (Unknown, Verified 02/25/2414:05) Rash and itch, [...] days #45 tabs 12/23/23 [Rx Confirmed 02/26/24] llobpwzz-srqmjmwn-gkbbb acid 500 mcg-lutein 5 mg-zeaxanth 1 mg [...] % (Auto) 11.1 % (.) 02/26/24 10:06 Cole % (Auto) 15.6 % (.) 02/26/24 10:06 Eos % (Auto) 0.8 % (.) 02/26/24 10:06 Baso % (Auto) 0.6 % (.) 02/26/24 10:06 Nucleat RBC Rel Count 0.1 /100 WBC (0-0.5) 02/26/24 10:06 Neut # (Auto) 3.4 x10E3/uL (1.8-7.7) 02/26/24 10:06 Lymph # (Auto) 0.5 x10E3/uL (1.00-4.8) L 02/26/24 10:06 Cole # (Auto) 0.7 x10E3/uL (0.0-0.8) 02/26/24 10:06 [...] pH 5.0 (5.0-9.0) 02/26/24 11:26 Ur Specific Newell 1.017 (1.001-1.030) 02/26/24 11:26 Urine Protein Negative [...] 2 Documented By: Bright Lopez MD 4 0476 Signed By: <Electronically signed by Bright Lopez MD> 02/26/24 1641 [facility] Work Phone: 1(725) 354-952709-04-2024 History of Present illness Narrative* Rosalinda Caro NP - 02/17/2024 3:00 PM EDT Images from the original note were not included. Fani Chua is a 88 y.o. male presents with chief complaint of Post Hospital HPI: HPI Patient was admitted to [facility]/22-01/25/2024 with TIA. He has [facility] HH Nursing, PT, OT twice weekly. He was [...] 2023 and had a follow-up appointment in [place]. He has been receiving home health care, [...] Flowsheet Row Patient Outreach from 01/26/2024 in [facility] [employer] [facility] Information ED, Hospital or Alf Facility Discharge? Hospital [DX: TIA] Patient has been contacted within two business days of discharge Yes [unable to reach patient x 2, no return call] Discharge [facility] Discharge Date 01/23/24 Engagement Medications Appointments Self Management Patient Teaching Wrap Up HISTORIES: PAST MEDICAL HISTORY: Past Medical History: Diagnosis Date A-fib (CMS/HCC) AVN (avascular necrosis of bone) (CMS/HCC) Bladder infection COVID-19 vaccine administered pfizer Diverticulitis Diverticulosis 2011 Diverticulosis of colon without hemorrhage Eczema Kidney stone Labyrinthitis 11/2008 Menstrual bleeding problem Neuroma right foot Prostate cancer (CMS/HCC) SCC (squamous cell carcinoma) 2013 chest Toe pain 1995 right hallux Type 2 diabetes mellitus ([facility]/HCC) Ureteral calculus, left Visual impairment SURGICAL HISTORY: Past Surgical History: Procedure Laterality Date CARDIOVERSION 2007 COLONOSCOPY 2011 COLONOSCOPY 05/27/2018 CYSTOSCOPY 01/2009 CYSTOSCOPY cystoscopy ureteroscopy,left ureteral calculus stricture CYSTOSCOPY 05/05/2023 NEUROMA SURGERY Right LA TOTAL HIP ARTHROPLASTY Left 03/29/2009 PROSTATECTOMY 1996 [...] any problems or concerns. [id number] Consult note Author Buck Glover [facility] January 22, 2024 1:50pm Note Date/Time January 22, 2024 10: 52am [facility] [address] [place] [address] Neurology Consult Note Signed Patient: Fani Chua MR#: [id number] : 1935 Acct:[id number] Age/Sex: 88 / M Adm Date: 4 Loc: Room: [address] [place] [address] Type: ADM INOo Attending Dr: Minna Patricia MD Copies to: DO Minna Doe MD Robert L Hill, MD~ HPI Consult Date: 01/22/24 Tree Specialist: Buck Glover DO [facility] Medical History Right patella fracture History [...] Verified 01/21/24 15:33) Rash bacitracin [From Neosporin (zgn-nbo-myaeh)] Allergy (Unknown, Verified 01/21/24 15:33) itch and rash, rash neomycin [From Neosporin (lhi-lwc-kqetf)] Allergy (Unknown, Verified 01/21/24 15:33) itch and rash, rash Penicillins Allergy (Unknown, Verified 01/21/24 15:33) Anaphylaxis polymyxin B [From Neosporin (peu-evk-pnmos)] Allergy (Unknown, Verified 01/20/2415:33) Rash and itch, [...] Ramirez Jr., D.O.01/21/2024 3:58 PM Dictation Location: [place] [address] 01/21/24 15:19 IMPRESSION: No acute intracranial pathology. No evidence of critical stenosis, aneurysmal dilatation, dissection or occlusion. Impression dictated by: Henry Ramirez Jr., D.O.01/21/2024 3:47 PM Dictation Location: [place] [address] Therapy Recommendations Therapy Recommendations: ST Recommendations Liquid [...] do not see how an MRI would change management coordinator. He is asymptomatic and already effectively medically maximized. 4. Outpatient neurology follow-up; okay for discharge from my standpoint Documented By: Buck Glover DO 01/22/24 1048 Signed By: <Electronically signed by Buck Glover DO> 01/22/24 1350 [facility] Work Phone: 1(850) 416-345708-09-2024 Hospital Discharge instructionsAmbulatory Orders* Initiate Home Health [...] management and education -See speech therapy recs [facility] Work Phone: 1(275) 442-571608-08-2024 History and physical note Author Minna Patricia [facility] January 21, 2024 8:29pm Note Date/Time January 21, 2024 6:5 7pm [facility] [address] [place] [address] Hospitalist H&P Signed Patient: Fani Chua MR#: [id number] : 1935 Acct:[id number] Age/Sex: 88 / M Adm Date: 4 Loc: 3T Room: [address] [place] [address] Type: ADM INOo Attending Dr: Donnell Amos [...] negative unless noted in the HPI below [facility] Source: Old Records Reviewed Medical History Right [...] Verified 01/21/24 15:33) Rash bacitracin [From Neosporin (ngg-yjo-motui)] Allergy (Unknown, Verified 01/21/24 15:33) itch and rash, rash neomycin [From Neosporin (dfk-ujb-jbrjc)] Allergy (Unknown, Verified 01/21/24 15:33) itch and rash, rash Penicillins Allergy (Unknown, Verified 01/21/24 15:33) Anaphylaxis polymyxin B [From Neosporin (xyn-pix-grbem)] Allergy (Unknown, Verified 01/20/2415:33) Rash and itch, [...] 15:14 Lymph % (Auto) N/A 01/21/24 15:14 Cole % (Auto) N/A 01/21/24 15:14 Eos % (Auto) N/A 01/21/24 15:14 Baso % (Auto) N/A 01/21/24 15:14 Nucleat RBC Rel Count N/A 01/21/24 15:14 Neut # (Auto) N/A 01/21/24 15:14 Lymph # (Auto) N/A 01/21/24 15:14 Cole # (Auto) N/A 01/21/24 15:14 Eos # [...] days): 2 Documented By: Italia Moore APRN 01/21/241854 Signed By: <Electronically signed by BENJI Moore> 01/21/241926 <Electronically signed by Minna Patricia MD> 01/21/242028 [facility] Work Phone: 1(898) 236-527807-16-2024 Progress note Author Henry Clark [facility] December 29, 2023 12:24pm Note Date/Time December 28, 2023 12:4 2pm [facility] [address] [place] [address] Physiatry(Rehab) Progress Note Signed Patient: Fani Chua MR#: [id number] : 1935 Acct:[id number] Age/Sex: 88 / M Adm Date: 4 Loc: Room: 9P8920-3 Type: ADM IN Attending Dr: Henry Clark [...] Verified 12/21/23 20:12) Rash bacitracin [From Neosporin (bts-fzt-jnltb)] Allergy (Unknown, Verified 12/21/23 20:12) itch and rash, rash neomycin [From Neosporin (hpe-etx-bparo)] Allergy (Unknown, Verified 12/21/23 20:12) itch and rash, rash Penicillins Allergy (Unknown, Verified 12/21/23 20:12) Anaphylaxis polymyxin B [From Neosporin (rjn-rix-yyubb)] Allergy (Unknown, Verified 12/21/2419:12) Rash and itch, [...] 12/24/23 09:00 12/28/23 09:21 Aspirin 81 Mg Tablet.Dr PO 12/23/24 08:59 81 mg DAILY WILLA Administration Atorvastatin Calcium 40 mg 12/23/23 22:00 12/27/23 20:50 Atorvastatin 40 Mg Tablet PO 12/22/24 21:59 40 mg QHS WILLA Administration Bisacodyl 10 mg 12/23/23 15:35 Bisacodyl 10 Mg Supp.Rect LA 12/22/24 15:34 DAILY PRN Constipation Docusate Sodium 100 mg 12/23/23 15:35 12/24/23 05:43 Docusate 100 Mg Capsule PO 12/22/24 15:34 100 mg BID PRN Administration Constipation Docusate Sodium 283 mg 12/23/23 15:35 Docusate Enema 283 Mg/5 Ml Enema LA 12/22/24 15:34 DAILY PRN Constipation Lactulose 30 [...] I spent 26 minutes for services, including wtvv-lu-ldap encounter with the patient, discussion of the case, plan of care, and exam; and iiavqbt-qs-hjei activities, such as reviewing pertinent job service consultant documentation, recent therapynotes, laboratory and radiology studies, and discussion of case with care team including physician, nursing, caser shoe parts, and therapists. More than 50 % of time was spent on patient/family counseling or coordination ofcare. <Statement entered by Henry Clark MD - 12/29/23 12:22> This documentation has been reviewed and approved. Documented By: Cherelle Schmidt APRN 12/28/23 1 236 Signed By: <Electronically signed by BENJI Schmidt> 12/28/23 1242 <Electronically signed by Henry Clark MD> 12/29/23 1220 [facility] Work Phone: 1(873) 948-247107-12-2024 Consult note Author Ashley Merritt [facility] December 25, 2023 7:46am Note Date/Time December 24, 2023 1:42 pm [facility] [address] [place] [address] Hospitalist Consult Note Signed Patient: Fani Chua MR#: [id number] : 1935 Acct:[id number] Age/Sex: 88 / M Adm Date: 4 Loc: Room: [address] [place] [address] Type: ADM IN Attending Dr: Henry Clark [...] negative unless noted in the HPI below [facility] Medical History (Updated 12/24/23 @ 13:41 [...] Heart disease 67 yrs Sibling Cancer [facility] Problem: Diagnosed with Cancer Social History Smoking Status: Former smoker Tobacco Type: cigarettes Substance Use Type: None Substance Abuse Comment: one beer daily Meds Medications and Allergies Allergies amoxicillin Allergy (Severe, Verified 12/21/23 20:12) Swelling of Lip/Tongue/Throat adhesive Allergy (Unknown, Verified 12/21/23 20:12) Rash bacitracin [From Neosporin (kwy-oov-odxor)] Allergy (Unknown, Verified 12/21/23 20:12) itch and rash, rash neomycin [From Neosporin (syt-yii-tiznh)] Allergy (Unknown, Verified 12/21/23 20:12) itch and rash, rash Penicillins Allergy (Unknown, Verified 12/21/23 20:12) Anaphylaxis polymyxin B [From Neosporin (abj-enz-onjkq)] Allergy (Unknown, Verified 12/21/2419:12) Rash and itch, [...] mg 12/23/23 15:35 Bisacodyl 10 Mg Supp.Rect LA 12/22/24 15:34 DAILY PRN Constipation Docusate Sodium 100 mg 12/23/23 15:35 12/24/23 05:43 Docusate 100 Mg Capsule PO 12/22/24 15:34 100 mg BID PRN Administration Constipation Docusate Sodium 283 mg 12/23/23 15:35 Docusate Enema 283 Mg/5 Ml Enema LA 12/22/24 15:34 DAILY PRN Constipation Lactulose 30 [...] 12/23/23 22:00 12/23/23 21:35 Pantoprazole 40 Mg Tablet. PO 12/22/24 21:59 [...] 12/24/23 05:32 12/24/23 05:32 12/24/23 05:32 12/24/23 07:00 [...] % (Auto) 66.9, Lymph % (Auto) 15.2, Cole % (Auto) 14.8, Eos % (Auto) 2.6, Baso % (Auto) 0.5, Nucleat RBC Rel Count 0.2, Neut # (Auto) 4.4, Lymph # (Auto) 1.0, Cole # (Auto) 1.0 H, Eos # (Auto) [...] post 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 Documented By: Itlaia Moore APRN 12/24/23 1335 Signed By: <Electronically signed by BENJI Moore> 12/24/23 1836 <Electronically signed by Ashley Merritt MD> 12/25/23 0746 [facility] Work Phone: 1(174) 313-353307-11-2024 History and physical note Author Henry Clark [facility] December 24, 2023 12:19pm Note Date/Time December 24, 2023 9:55 am [facility] [address] [place] [address] Physiatry (Rehab) H&P Signed Patient: Fani Chua MR#: [id number] : 1935 Acct:[id number] Age/Sex: 88 / M Adm Date: 4 Loc: Room: [address] [place] [address] Type: ADM IN Attending Dr: Henry Clark [...] immobilizer donning. Needed some encouragement with therapy. [facility] Medical History Patella fracture right.12/20/23 Hyperlipidemia [...] Heart disease 67 yrs Sibling Cancer [facility] Problem: Diagnosed with Cancer Social History Smoking [...] Verified 12/21/23 20:12) Rash bacitracin [From Neosporin (vqu-ijk-ahvdx)] Allergy (Unknown, Verified 12/21/23 20:12) itch and rash, rash neomycin [From Neosporin (jcz-dix-duotj)] Allergy (Unknown, Verified 12/21/23 20:12) itch and rash, rash Penicillins Allergy (Unknown, Verified 12/21/23 20:12) Anaphylaxis polymyxin B [From Neosporin (pcn-wjb-pozfs)] Allergy (Unknown, Verified 12/21/2419:12) Rash and itch, [...] 81 Mg Tablet.) 81 mg PO DAILY [facility] Stop: 12/23/24 08:59 Last Admin: 12/24/23 08:07 Dose: 81 mg Atorvastatin Calcium (Atorvastatin 40 Mg Tablet) 40 mg PO QHS [facility] Stop: 12/22/24 21:59 Last Admin: 12/23/23 21:35 Dose: 40 mg Bisacodyl (Bisacodyl 10 Mg Supp.Rect) 10 mg LA DAILY PRN PRN Reason: Constipation Stop: 12/22/24 15:34 Docusate Sodium (Docusate 100 Mg Capsule) 100 mg PO BID PRN PRN Reason: Constipation Stop: 12/22/24 15:34 Last Admin: 12/24/23 05:43 Dose: 100 mg Docusate Sodium (Docusate Enema 283 Mg/5 Ml Enema) 283 mg LA DAILY PRN PRN Reason: Constipation Stop: 12/22/24 15:34 Lactulose (Lactulose 20 Gm/30 Ml Udc) 30 gm PO DAILY PRN PRN Reason: Constipation Stop: 12/22/24 15:34 Magnesium Oxide (Magnesium Oxide 400 Mg Tablet) 400 mg PO DAILY [facility] Stop: 12/23/24 08:59 Last Admin: 12/24/23 08:07 Dose: 400 mg Oxycodone HCl (Oxycodone Ir 5 Mg Tablet) 5 mg PO Q4H PRN PRN Reason: Severe Pain Last Admin: 12/24/23 05:43 Dose: 5 mg Pantoprazole Sodium (Pantoprazole 40 Mg Tablet.) 40 mg PO QHS [facility] Stop: 12/22/24 21:59 Last Admin: 12/23/23 21:35 Dose: 40 mg Polyethylene Glycol (Polyethylene Glycol 3350 17 Gm Powd.Pack) 17 gm PO DAILY [facility] Stop: 12/23/24 08:59 Last Admin: 12/24/23 08:07 [...] extremities spontaneously. Right leg in extension with leonard wrap Neuro: CN grossly intact Skin: No [...] % (Auto) 66.9 Lymph % (Auto) 15.2 Cole % (Auto) 14.8 Eos % (Auto) 2.6 Baso % (Auto) 0.5 Nucleat RBC Rel Count 0.2 Neut # (Auto) 4.4 Lymph # (Auto) 1.0 Cole # (Auto) 1.0 H Eos # (Auto) [...] 14 days Expected Discharge Destination: Home Rehabilitation [facility]: 08.9 Primary Diagnosis: Right patella fracture; hemarthrosis Patient?s/Family?s [...] 24 hour daily monitoring and intervention from Process Development Technician as well as other consulting physicians including internal medicine as well as 24 hour daily pipe cleaning machine operator nursing - for medical safe / optimal [...] Allied health note review, nursing note review, job service consultant note review, discussion with nursing and case management, and more than 50% of my time was spent on counseling and coordination of care, time spent 70 minutes Patient was personally seen by me, Dr. Clark, on the day of encounter, within 24hours of rehab admission, reviewed the history and the relevant portions of the chart, including current orders, allied health and job service consultant notes, labs/imaging and performed orellana elements of exam and I formulated the plan of care and facilitated the medical decision making. Documented By: Henry Clark MD 12/24/2355 Signed By: <Electronically signed by Henry Clark MD> 12/24/23 1210 [facility] Work Phone: 1(198) 422-874207-09-2024 Consult note Author Elver Cifuentes [facility] December 22, 2023 2:35pm Note Date/Time December 22, 2023 9:25a m [facility] [address] [place] [address] Physiatry (Rehab) Consult Note Signed Patient: Fani Chua MR#: [id number] : 1935 Acct:[id number] Age/Sex: 88 / M Adm Date: 4 Loc: N Room: [address] [place] [address] Type: ADM INOo Attending Dr: Ashley Merritt MD Copies to: TempleMD María He MD Ruta Semaskiene, MD~ HPI Consult Date: [...] negative unless noted below or in HPI [facility] Medical History Patella fracture right.12/20/23 Hyperlipidemia [...] Verified 12/21/23 20:12) Rash bacitracin [From Neosporin (jwh-aie-puhwd)] Allergy (Unknown, Verified 12/21/23 20:12) itch and rash, rash neomycin [From Neosporin (rtu-gwd-mcmde)] Allergy (Unknown, Verified 12/21/23 20:12) itch and rash, rash Penicillins Allergy (Unknown, Verified 12/21/23 20:12) Anaphylaxis polymyxin B [From Neosporin (juz-mth-yinim)] Allergy (Unknown, Verified 12/21/2419:12) Rash and itch, [...] extremities spontaneously. Right leg in extension with leonard wrap Neuro: CN grossly intact Skin: No [...] chart, including current orders, allied health and job service consultant notes, labs/imaging and performed orellana elements of exam and I formulated the plan of care and facilitated the medical decision making. I completed a substantive portion of this encounter, the medical decision makingportion of this note in its entirety, including Allied health note review, nursing note review, job service consultant note review, discussion with nursing and case management, and more than 50% of my time was spent on counseling and coordination of care, time spent 60 minutes Documented By: Elver Cifuentes MD 919 Signed By: <Electronically signed by Elver Cifuentes MD> 12/22/23 1435 [facility] Work Phone: 1([phone]) 850-326007-09-2024 Consult note Author Roly Morales [facility] December 22, 2023 11:35am Note Date/Time December 22, 2023 10:55 am [facility] [address] [place] [address] Orthopedic Consult Note Signed Patient: Fani Chua MR#: [id number] : 1935 Acct:[id number] Age/Sex: 88 / M Adm Date: 4 Loc: 4N Room: [address] [place] [address] Type: ADM INOo Attending Dr: Ashley Merritt [...] is planning for admission to inpatient rehab. [facility] Medical History Patella fracture right.12/20/23 Hyperlipidemia [...] Verified 12/21/23 20:12) Rash bacitracin [From Neosporin (epr-oky-pacdv)] Allergy (Unknown, Verified 12/21/23 20:12) itch and rash, rash neomycin [From Neosporin (rvu-cco-degru)] Allergy (Unknown, Verified 12/21/23 20:12) itch and rash, rash Penicillins Allergy (Unknown, Verified 12/21/23 20:12) Anaphylaxis polymyxin B [From Neosporin (rau-mkv-jbffu)] Allergy (Unknown, Verified 12/21/2419:12) Rash and itch, [...] nursing floor. He is resting supine position. Leonard wrap and knee immobilizer to right lower extremity. He is alert and oriented. Pleasant conversation. Right knee is evaluated. Knee immobilizer and Leonard wrap removed. He does have an abrasion [...] % (Auto) 69.1, Lymph % (Auto) 15.0, Cole % (Auto) 14.6, Eos % (Auto) 0.8, Baso % (Auto) 0.5, Nucleat RBC Rel Count 0.1, Neut # (Auto) 6.2, Lymph # (Auto) 1.4, Cole # (Auto) 1.3 H, Eos # (Auto) 0.1, Baso # (Auto) 0.0, PHA Creatinine Clear 58.48, Sodium 137, Potassium 3.8, Chloride 102, Carbon Dioxide 26.6, Anion Gap 12.2, BUN 25, Creatinine 0.89, Est GFR (CKD-EPI) > 60.0, [id number] H, Calcium 9.1 12/22/23 06:56: PT 16.3 [...] reaction. Band-Aid was applied to the area. Leonard wrap was reapplied for compression to prevent [...] <Electronically signed by Roly Morales DO> 12/22/23 1135 [facility] Work Phone: 1(791) 133-237907-09-2024 Progress note Author Ashley Merritt [facility] December 22, 2023 9:37am Note Date/Time December 22, 2023 9:37a m [facility] [address] [place] [address] Hospitalist Progress Note Signed Patient: Fani Chua MR#: [id number] : 1935 Acct:[id number] Age/Sex: 88 / M Adm Date: 4 Loc: Room: [address] [place] [address] Type: ADM INOo Attending Dr: Ashley Merritt [...] Verified 12/21/23 20:12) Rash bacitracin [From Neosporin (ara-csk-dyfsd)] Allergy (Unknown, Verified 12/21/23 20:12) itch and rash, rash neomycin [From Neosporin (jem-yhm-acodm)] Allergy (Unknown, Verified 12/21/23 20:12) itch and rash, rash Penicillins Allergy (Unknown, Verified 12/21/23 20:12) Anaphylaxis polymyxin B [From Neosporin (fvg-rae-vuxvn)] Allergy (Unknown, Verified 12/21/2419:12) Rash and itch, rash Active Meds: Active Medications Generic Name Dose Route Start Last Admin Trade Name Fredex PRN Reason Stop Dose Admin Atorvastatin Calcium 40 mg 12/22/23 22:00 Atorvastatin 40 Mg Tablet PO 12/21/24 21:59 QHS WILLA Hydromorphone HCl 0.25 mg 12/22/23 09:34 Hydromorphone 1 Mg/Ml Syringe IV-PUSH Q4H PRN pain Oxycodone HCl 5 mg 12/21/23 20:52 Oxycodone Ir 5 Mg Tablet PO Q8HR PRN Severe Pain Pantoprazole Sodium 40 mg 12/21/23 22:00 12/22/23 00:01 Pantoprazole [address] SINHA 12/20/24 21:59 Not Given QHS WILLA Sodium [...] <Electronically signed by Ashley Merritt MD> 12/22/23936 [facility] Work Phone: 1(221) 394-179007-09-2024 History and physical note Author Hilario Skelton [facility] December 22, 2023 3:27am Note Date/Time December 21, 2023 11:52 pm [facility] [address] [place] [address] Hospitalist H&P Signed Patient: Fani Chua MR#: [id number] : 1935 Acct:[id number] Age/Sex: 88 / M Adm Date: 4 Loc: 4 Room: [address] [place] [address] Type: ADM INOo Attending Dr: Hilario Skelton MD Copies to: MD Kaitlynn Lorenzana APRN Robert L Hill, MD~ HPI DATE OF EXAMINATION: 12/21/23 CHIEF [...] of care and confirmed it with the resident/student/CUTTER DOWN. Patient is an 88-year-old male, who was [...] increased. Right knee is currently wrapped in Leonard wrap, left knee has gauze. Hedenies fever, [...] unless noted in the HPI or below. [facility] Medical History Patella fracture right.12/20/23 Hyperlipidemia [...] [facility] Problem: Diagnosed with Cancer Social History Smoking Status: Former smoker Tobacco Type: cigarettes Substance Use Type: None Substance Abuse Comment: one beer daily Meds Medications and Allergies Allergies amoxicillin Allergy (Severe, Verified 12/21/23 20:12) Swelling of Lip/Tongue/Throat adhesive Allergy (Unknown, Verified 12/21/23 20:12) Rash bacitracin [From Neosporin (ecy-nem-fbkbk)] Allergy (Unknown, Verified 12/21/23 20:12) itch and rash, rash neomycin [From Neosporin (uof-fpo-cnyhk)] Allergy (Unknown, Verified 12/21/23 20:12) itch and rash, rash Penicillins Allergy (Unknown, Verified 12/21/23 20:12) Anaphylaxis polymyxin B [From Neosporin (lba-lnu-xwsbk)] Allergy (Unknown, Verified 12/21/2419:12) Rash and itch, [...] to RLE, right knee warm to touch, Leonard wrap in place SKIN- W/D good turgor [...] 1 Documented By: Kaitlynn Lewis APRN 12/21/23 2831 Signed By: <Electronically signed by BENJI Lewis> 12/22/23 0313 <Electronically signed by Hilario Skelton MD> 12/22/23 0327 [facility] Work Phone: 1(902) 302-741107-07-2024 History and physical note Author Isai May [facility] December 20, 2023 7:23am Note Date/Time December 20, 2023 4:54a m [facility] [address] [place] [address] Hospitalist H&P Signed Patient: Fani Chua MR#: [id number] : 1935 Acct:[id number] Age/Sex: 88 / M Adm Date: 4 Loc: 4N Room: [address] [place] [address] Type: ADM INOo Attending Dr: Betty Buchanan [...] with joint effusion. Symptomatic management for now. [facility] Medical History Hyperlipidemia Emphysema lung Arthritis [...] Heart disease 67 yrs Sibling Cancer [facility] Problem: Diagnosed with Cancer Social History Smoking Status: Never smoker Tobacco Type: cigarettes Substance Use Type: Alcohol Substance Abuse Comment: drinks a beer nightly Meds Medications and Allergies Allergies amoxicillin Allergy (Severe, Verified 12/20/23 00:50) Swelling of Lip/Tongue/Throat adhesive Allergy (Unknown, Verified 12/20/23 00:50) Rash bacitracin [From Neosporin (qdi-dwi-xcazq)] Allergy (Unknown, Verified 12/20/23 00:50) itch and rash, rash neomycin [From Neosporin (buo-qfl-qhkik)] Allergy (Unknown, Verified 12/20/23 00:50) itch and rash, rash Penicillins Allergy (Unknown, Verified 12/20/23 00:50) Anaphylaxis polymyxin B [From Neosporin (ebq-nrx-flzaa)] Allergy (Unknown, Verified 12/20/2399:50) Rash and itch, [...] 02:25 Lymph % (Auto) N/A 12/20/23 02:25 Cole % (Auto) N/A 12/20/23 02:25 Eos % (Auto) N/A 12/20/23 02:25 Baso % (Auto) N/A 12/20/23 02:25 Nucleat RBC Rel Count N/A 12/20/23 02:25 Neut # (Auto) N/A 12/20/23 02:25 Lymph # (Auto) N/A 12/20/23 02:25 Cole # (Auto) N/A 12/20/23 02:25 Eos # [...] pH 5.0 (5.0-9.0) 12/20/23 02:55 Ur Specific Newell 1.019 (1.001-1.030) 12/20/23 02:55 Urine Protein Trace [...] By: <Electronically signed by Isai May DO> 12/20/23 0723 [facility] Work Phone: 1([phone]) 448-615404-16-2024 History of Present illness Narrative* Bonita Kingsley [...] with moderate pulmonary hypertension. He was in [place] couple weeksback and had a fall after [...] demonstrate LV systolic dysfunction we will add LEONARD inhibitors and a small dose of beta-blockers [...] mg) by mouth. Take as directed by [facility], Disp: , Rfl: Assessment/Plan 1. Nonrheumatic aortic valve stenosis 2. Presence of prosthetic heart valve 3. Status post transcatheter aortic valve replacement 4. Permanent atrial fibrillation (Multi) 5. Coronary artery disease, unspecified vessel or lesion type, unspecified whether angina present, unspecified whether kotlik or transplanted heart 6. Congestive heart failure, NYHA class 2, unspecified congestive heart failure type (Multi) 7. Pulmonary hypertension (Multi) 8. Hypertension, unspecified type 9. Pure hypercholesterolemia 10. PVD (peripheral vascular disease) ([facility]) 11. Type 2 diabetes mellitus without complication, unspecified whether assistant terminal manager insulin use (Multi) 12. Stage 2 chronic kidney disease 13. Former smoker Scribe Attestation By signing my name below, IGricelda LPN, Scribe attest that this documentation has [...] exam, discussion and plan. documented in this [facility] Work Phone: 1(424) 437-701404-16-2024 Instructions* Patient Instructions* Gricelda Sena LPN - 09/29/2023 9:20 AM EDT [...] 6 months Sept Echo documented in this [facility] Work Phone: 1(700) 545-561712-23-2023 Consult note Author Tyrese Gutierrez [facility] June 06, 2023 1:21pm Note Date/Time June 06, 2023 1:10pm [facility] [address] [place] [address] Cardiology Consult Note Signed Patient: Fani Chua MR#: [id number] : 1935 Acct:[id number] Age/Sex: 88 / M Adm Date: 3 Loc: 4N Room: [address] [place] [address] Type: ADM IN Attending Dr: Isai May [...] negative unless noted below or in HPI [facility] Medical History (Updated 12/23/23 @ 13:20 by Tyrese Gutierrez MD) Afib [...] 15:15) Swelling of Lip/Tongue/Throat bacitracin [From Neosporin (lvk-kgz-knizo)] Allergy (Verified 06/04/23 15:15) itch and rash neomycin [From Neosporin (frs-rab-duzgp)] Allergy (Verified 06/04/23 15:15) itch and rash polymyxin B [From Neosporin (eku-pup-ivyda)] Allergy (Verified 06/04/23 15:15) Rash and itch [...] nonspecific abnormality, ST segment, and/or T wave MD, pacemaker, normal Normal tracing: no change compared [...] home today. Recommend follow-up with his primary sr. logistics analyst Dr. George within 3 weeks. Thank you very much for this kind consultation and for allowing me to participate in the care of this delightful patient. Documented By: Tyrese Gutierrez MD 06/06/23 1308 Signed By: <Electronically signed by Tyrese Gutierrez MD> 06/06/23 1321 [facility] Work Phone: 1(274) 254-626312-22-2023 Progress note Author Isai May [facility] June 05, 2023 6:38pm Note Date/Time June 05, 2023 6:39pm [facility] [address] [place] [address] Hospitalist Progress Note Signed Patient: Fani Chua MR#: [id number] : 1935 Acct:[id number] Age/Sex: 88 / M Adm Date: 3 Loc: 4N Room: [address] [place] [address] Type: ADM IN Attending Dr: Isai May [...] 15:15) Swelling of Lip/Tongue/Throat bacitracin [From Neosporin (vzr-bgn-bfjll)] Allergy (Verified 06/04/23 15:15) itch and rash neomycin [From Neosporin (uzn-csn-ynodn)] Allergy (Verified 06/04/23 15:15) itch and rash polymyxin B [From Neosporin (idc-qkn-europ)] Allergy (Verified 06/04/23 15:15) Rash and itch [...] <Electronically signed by Isai May DO> 06/05/23 6250 [facility] Work Phone: 1([phone]) 703-860212-22-2023 Consult note Author Buck Glover [facility] June 05, 2023 3:26pm Note Date/Time June 05, 2023 3:26pm [facility] [address] [place] [address] Neurology Consult Note Signed Patient: Fani Chua MR#: [id number] : 1935 Acct:[id number] Age/Sex: 88 / M Adm Date: 3 Loc: 4N Room: [address] [place] [address] Type: ADM IN Attending Dr: Isai May DO Copies to: DO Isai Doe DO Robert L Hill, MD~ HPI Consult Date: 06/05/23 Tree Specialist: Buck Glover DO [facility] Medical History (Updated 06/04/23 @ 16:47 [...] 15:15) Swelling of Lip/Tongue/Throat bacitracin [From Neosporin (ykd-hhs-qrjyp)] Allergy (Verified 06/04/23 15:15) itch and rash neomycin [From Neosporin (din-eqr-gxpbu)] Allergy (Verified 06/04/23 15:15) itch and rash polymyxin B [From Neosporin (ojq-fzg-jfnze)] Allergy (Verified 06/04/23 15:15) Rash and itch [...] Trey Murray M.D.06/04/2023 5:18 PM Dictation Location: [place] [address] 06/04/23 15:18 IMPRESSION: ATROPHY AND CHRONIC MICROVASCULAR CHANGES. NO DEFINITE ACUTE INTRACRANIAL ABNORMALITY. FOLLOW-UP IS RECOMMENDED, SYMPTOMS WARRANT. Comment: Findings were discussed with Dr. 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 Impression dictated by: Cyn Llamas M.D.06/04/2023 4:10 PM Dictation Location: [place] [address] Assessment/Plan (1) Blurred vision: Assessment/Problem Details: CONSULT REASON: Dizziness, blurred vision, rule out myasthenia gravis HPI: 88-year-old man. 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 It is MR [...] time. Documented By: Buck Glover DO 06/05/23 1516 Signed By: <Electronically signed by Buck Glover DO> 06/05/23 1525 [facility] Work Phone: 1(430) 701-437312-22-2023 History and physical note Author Isai May [facility] June 04, 2023 10:49pm Note Date/Time June 04, 2023 10:49pm [facility] [address] [place] [address] Hospitalist H&P Signed Patient: Fani Chua MR#: [id number] : 1935 Acct:[id number] Age/Sex: 88 / M Adm Date: 3 Loc: Room: [address] [place] [address] Type: ADM INOo Attending Dr: Isai May [...] BNP elevation Patient has been seen by [facility] heart in the past for A-fib however these ongoing cardiac issues do not appear to be symptomatic. His troponin and BNP elevation are mild and potentially chronic. Echocardiogram to rule out cardiac thrombus certainly is warranted for his neurologic evaluation but may shed lighton this further. Low suspicion for ACS or acute CHF at the moment. He does follow with [facility] heart. With his presenting normotension and lack of [...] negative unless noted below or in HPI [facility] Medical History (Updated 06/04/23 @ 16:47 [...] 15:15) Swelling of Lip/Tongue/Throat bacitracin [From Neosporin (uep-hia-darzn)] Allergy (Verified 06/04/23 15:15) itch and rash neomycin [From Neosporin (zeq-cph-lwgtz)] Allergy (Verified 06/04/23 15:15) itch and rash polymyxin B [From Neosporin (kaa-yvl-wplgo)] Allergy (Verified 06/04/23 15:15) Rash and itch [...] 15:22 Hgb 12.9 g/dL (13.0-17.0) L 06/04/23 15: Hct 38.4 % (38.8-50.0) L 06/04/23 15: MCV 88.4 fl (83.5-101) 06/04/23 15:22 MCH 29.7 pg (27.5-35.2) 06/04/23 15: MCHC 33.5 g/dL (32.5-35.6) 06/04/23 15: RDW 14.5 % (12.0-14.8) 06/04/23 15:22 Plt Count 194 x10E3/uL (150-450) 06/04/23 15:22 MPV 8.6 fl (6.6-10.1) 06/04/23 15: Neut % (Auto) 63.3 % (.) 06/04/23 15:22 Lymph % (Auto) 23.0 % (.) 06/04/23 15: Cole % (Auto) 11.2 % (.) 06/04/23 15:22 Eos % (Auto) 1.6 % (.) 06/04/23 15:22 Baso % (Auto) 0.9 % (.) 06/04/23 15:22 Nucleat RBC Rel Count 0.1 /100 WBC (0-0.5) 06/04/23 15: Neut # (Auto) 4.4 x10E3/uL (1.8-7.7) 06/04/23 15:22 Lymph # (Auto) 1.6 x10E3/uL (1.00-4.8) 06/04/23 15:22 Cole # (Auto) 0.8 x10E3/uL (0.0-0.8) 06/04/23 15:22 Eos # (Auto) 0.1 x10E3/uL (0.0-0.45) 06/04/23 15:22 Baso # (Auto) 0.1 x10E3/uL (0.0-0.2) 06/04/23 15:22 Monocyte Dist Width 17.82 % (0.00-20.00) 06/04/23 15: PT 33.6 Seconds (9.0-12.9) H 06/04/23 15:22 INR 3.0 06/04/23 15:22 APTT 48.5 Seconds (25.1-36.5) H 06/04/23 15:22 PHA Creatinine Clear 53.65 06/04/23 15:22 Sodium 138 mmol/L (136-145) 06/04/23 15:22 Potassium 4.2 mmol/L (3.5-5.1) 06/04/23 15:22 Chloride 104 mmol/L (98-107) 06/04/23 15:22 Carbon Dioxide 27.8 mmol/L (21.0-31.0) 06/04/23 15:22 Anion Gap 10.4 mEq/L (6.0-15.0) 06/04/23 15:22 [...] pH 5.0 (5.0-9.0) 06/04/23 17:00 Ur Specific Newell 1.038 (1.001-1.030) H 06/04/23 17:00 Urine Protein [...] <Electronically signed by Isai May DO> 06/04/23 4697 [facility] Work Phone: 1(468) 970-802110-19-2023 Progress note Author Marisela Shaffer [facility] April 02, 2023 12:55pm Note Date/Time April 02, 2023 1 2:55pm [facility] [address] [place] [address] Wound Center Provider Note Signed Patient: Fani Chua MR#: [id number] : 1935 Acct:[id number] Age/Sex: 87 / M Copies to: MD Marisela Jansen, BENJI~ HPI Date of Visit Date of Visit: Date of Service: 04/02/2023 Time of Service: 12:54 Narrative HPI: 02/26/23 Te is an 87 year old male presenting to [facility] wound care program for an initial visit [...] and visits, is taking antibiotics per his panel sewer forsomething not related to the wounds we [...] wound start?: Early January 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 Lives with:: Spouse Appetite Description: Within Normal Limits Who helps w/ dressing change?: Self Smoking Status: Former smoker [facility] Medical History (Updated 03/23/23 @ 15:05 [...] 10:30) Swelling of Lip/Tongue/Throat bacitracin [From Neosporin (brn-alo-nsfon)] Allergy (Verified 02/26/23 10:30) itch and rash neomycin [From Neosporin (wsr-tln-dpwhc)] Allergy (Verified 02/26/23 10:30) itch and rash polymyxin B [From Neosporin (jbn-gek-dkfzu)] Allergy (Verified 02/26/23 10:30) Rash and itch Wound/Ulcer Left Lower Leg: Type: Traumatic Thickness: Full Bed Appearance: Beefy Red, Epithelial Tissue or Bridge, Rodanthe and Yellow Percent of Wound Bed Granulated/Red: [...] By: <Electronically signed by BENJI Shaffer> 04/02/23 [facility] Work Phone: 1([phone]) 108-168010-16-2023 Evaluation note* Encounter Date Diagnosis Assessment Notes Treatment Notes Treatment Clinical Notes Mar, 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) [facility] Other 10-09-2023 Progress note Author Marisela Shaffer [facility] March 23, 2023 3:05pm Note Date/Time March 23, 2023 3: 05pm [facility] [address] [place] [address] Wound Center Provider Note Signed Patient: Fani Chua MR#: [id number] : 1935 Acct:[id number] Age/Sex: 87 / M Copies to: MD Marisela Jansen APRN~ HPI Date of Visit Date of Visit: Date of Service: 03/23/2023 Time of Service: 15:03 Narrative HPI: 02/26/23 Te is an 87 year old male presenting to [facility] wound care program for an initial visit [...] and visits, is taking antibiotics per his panel sewer forsomething not related to the wounds we [...] wound start?: Early January 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 Lives with:: Spouse Appetite Description: Within Normal Limits Who helps w/ dressing change?: Self Smoking Status: Former smoker [facility] Medical History (Updated 03/23/23 @ 15:05 [...] 10:30) Swelling of Lip/Tongue/Throat bacitracin [From Neosporin (mbe-qje-jdhof)] Allergy (Verified 02/26/23 10:30) itch and rash neomycin [From Neosporin (cst-kha-vugla)] Allergy (Verified 02/26/23 10:30) itch and rash polymyxin B [From Neosporin (dtf-esf-ubafq)] Allergy (Verified 02/26/23 10:30) Rash and itch Wound/Ulcer Left Lower Leg: Type: Traumatic Thickness: Full Bed Appearance: Beefy Red, Epithelial Tissue or Bridge, Rodanthe and Yellow Percent of Wound Bed Granulated/Red: 90 Percent of Devitalized: 10 Length (cm): 16.0 Width (cm): 4.5 Depth (cm): 0.1 CM Sq: 72.000 Surrounding Tissue Appearance: Hyperpigmented Surrounding Tissue Temp: Warm Drainage Amount: Moderate Drainage Description: Serosanguineous Drainage Odor: No Odor Left Hand: Type: Traumatic Thickness: Full Bed Appearance: Rodanthe Percent of Wound Bed Granulated/Red: 100 Percent [...] 10 Dictated By: Marisela Shaffer APRN DD/ 1503 Signed By: <Electronically signed by BENJI Shaffer> 03/23/23 1505 [facility] Work Phone: 1([phone]) 700-249610-02-2023 Progress note Author Marisela Shaffer [facility] March 16, 2023 2:26pm Note Date/Time March 16, 2023 2: 26pm [facility] [address] [place] [address] Wound Center Provider Note Signed Patient: Fani Chua MR#: [id number] : 1935 Acct:[id number] Age/Sex: 87 / M Copies to: MD Marisela Jansen APRN~ HPI Date of Visit Date of Visit: Date of Service: 03/16/2023 Time of Service: 14:24 Narrative HPI: 02/26/23 Te is an 87 year old male presenting to [facility] wound care program for an initial visit [...] and visits, is taking antibiotics per his panel sewer forsomething not related to the wounds we are treating Subjective Pain Left Lower Leg: Pain Description: Intermittent and Soreness Pain Intensity: 0 Pain Management Techniques Other/Comment: Only hurts when touched Left Hand: Pain Description: Intermittent and Soreness Pain Intensity: 1 Wound/Ulcer History When did wound start?: Early January 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 Lives with:: Spouse Appetite Description: Within Normal Limits Who helps w/ dressing change?: Self Smoking Status: Former smoker [facility] Medical History (Updated 03/05/23 @ 13:46 [...] 10:30) Swelling of Lip/Tongue/Throat bacitracin [From Neosporin (pim-rvo-walci)] Allergy (Verified 02/26/23 10:30) itch and rash neomycin [From Neosporin (qbn-goq-gpzer)] Allergy (Verified 02/26/23 10:30) itch and rash polymyxin B [From Neosporin (jef-emz-xesyo)] Allergy (Verified 02/26/23 10:30) Rash and itch Wound/Ulcer Left Lower Leg: Type: Traumatic Thickness: Full Bed Appearance: Beefy Red, Epithelial Tissue or Bridge, Rodanthe and Yellow Percent of Wound Bed Granulated/Red: 75 Percent of Devitalized: 25 Length (cm): 18 Width (cm): 6 Depth (cm): 0.1 CM Sq: 108.000 Surrounding Tissue Appearance: Hyperpigmented Surrounding Tissue Temp: Warm Drainage Amount: Moderate Drainage Description: Serosanguineous Drainage Odor: No Odor Left Hand: Type: Traumatic Thickness: Full Bed Appearance: Beefy Red, Rodanthe and Yellow Percent of Wound Bed Granulated/Red: [...] By: <Electronically signed by BENJI Shaffer> 03/16/23 1426 [facility] Work Phone: 1(842) 231-440009-21-2023 Progress note Author Marisela Shaffer [facility] March 05, 2023 1:47pm Note Date/Time March 05, 2023 1:47pm [facility] [address] [place] [address] Wound Center Provider Note Signed Patient: Fani Chua MR#: [id number] : 1935 Acct:[id number] Age/Sex: 87 / M Copies to: MD Marisela Jansen APRN~ HPI Date of Visit Date of Visit: Date of Service: 03/05/2023 Time of Service: 13:44 Narrative HPI: 02/26/23 Te is an 87 year old male presenting to [facility] wound care program for an initial visit [...] wound start?: Early January 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 Lives with:: Spouse Appetite Description: Within Normal Limits Who helps w/ dressing change?: Self Smoking Status: Former smoker [facility] Medical History (Updated 03/05/23 @ 13:46 [...] 10:30) Swelling of Lip/Tongue/Throat bacitracin [From Neosporin (vda-gpi-zvjvq)] Allergy (Verified 02/26/23 10:30) itch and rash neomycin [From Neosporin (xws-mys-uhver)] Allergy (Verified 02/26/23 10:30) itch and rash polymyxin B [From Neosporin (cpo-gii-rpesr)] Allergy (Verified 02/26/23 10:30) Rash and itch Wound/Ulcer Left Lower Leg: Type: Traumatic Thickness: Full Bed Appearance: Beefy Red, Epithelial Tissue or Bridge, Rodanthe and Yellow Percent of Wound Bed Granulated/Red: 95 Percent of Devitalized: 5 Length (cm): 20 Width (cm): 16 Depth (cm): 0.1 CM Sq: 320.000 Surrounding Tissue Appearance: Hyperpigmented Surrounding Tissue Temp: Warm Drainage Amount: Moderate Drainage Description: Serosanguineous Drainage Odor: No Odor Left Hand: Type: Traumatic Thickness: Full Bed Appearance: Beefy Red, Epithelial Tissue or Bridge, Rodanthe and Yellow Percent of Wound Bed Granulated/Red: [...] Signed By: <Electronically signed by BENJI Shaffer> 03/05/237 [facility] Work Phone: [phone]) 616-905809-14-2023 Progress note Author Marisela Shaffer [facility] February 26, 2023 10:41am Note Date/Time February 26, 2023 10:39am [facility] [address] [place] [address] Wound Center Provider Note Signed Patient: Fani Chua MR#: [id number] : 1935 Acct:[id number] Age/Sex: 87 / M Copies to: MD Marisela Jansen APRN~ HPI Date of Visit Date of Visit: Date of Service: 02/26/2023 Time of Service: 10:37 Narrative HPI: 02/26/23 Te is an 87 year old male presenting to [facility] wound care program for an initial visit [...] wound start?: Early January 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 Lives with:: Spouse Appetite Description: Within Normal Limits Who helps w/ dressing change?: Self Smoking Status: Former smoker [facility] Medical History (Updated 02/26/23 @ 10:38 [...] 10:30) Swelling of Lip/Tongue/Throat bacitracin [From Neosporin (yrc-hji-deghp)] Allergy (Verified 02/26/23 10:30) itch and rash neomycin [From Neosporin (iie-tqf-orzsb)] Allergy (Verified 02/26/23 10:30) itch and rash polymyxin B [From Neosporin (wys-mrn-eqgwc)] Allergy (Verified 02/26/23 10:30) Rash and itch Wound/Ulcer Left Lower Leg: Type: Traumatic Thickness: Full Bed Appearance: Beefy Red, Rodanthe and Yellow Percent of Wound Bed Granulated/Red: [...] <Electronically signed by BENJI Shaffer> 02/26/23 1041 [facility] Work Phone: [phone]) 533-555112-15-2022 Progress note Author Marisela Shaffer [facility] 2022 10:58am Note Date/Time 2022 10:58am [facility] [address] [place] [address] Wound Center Provider Note Signed Patient: Fani Chua MR#: [id number] : 1935 Acct:[id number] Age/Sex: 87 / M Copies to: Trey العلي,DO Marisela Shaffer APRN~ HPI Date of Visit Date of Visit: Date of Service: 2022 Time of Service: 10:55 Narrative HPI: 05/29/22 Te is an 87 year old male presenting to [facility] wound care program for an initial visit for eval and treatment of a traumatic wound to the left lower leg. He has been using honey gel on the area with a nonstick telfa bandage. I see no signs of infection today but he did ask for Doxycycline since he is leaving for [place] in a couple weeks. He will use an antimicrobial cleanser and collagen powder/honey gel with a bandage. Healing will depend on the dressings being done as ordered as well as having a well balanced diet. Subjective Pain Left Lower Leg: Pain Intensity: 0 Wound/Ulcer History When did wound start?: April2022 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 Lives with:: Spouse Appetite Description: Within Normal Limits Who helps w/ dressing change?: Self Smoking Status: Former smoker [facility] Medical History (Updated 05/29/22 @ 10:58 [...] 10:31) Swelling of Lip/Tongue/Throat bacitracin [From Neosporin (pkg-srq-klqki)] Allergy (Verified 03/19/22 10:31) itch and rash neomycin [From Neosporin (isu-pgo-dzmyi)] Allergy (Verified 03/19/22 10:31) itch and rash polymyxin B [From Neosporin (xpz-gvq-jvxim)] Allergy (Verified 03/19/22 10:31) Rash and itch Wound/Ulcer Left Lower Leg: Type: Traumatic Thickness: Partial Bed Appearance: Beefy Red, Rodanthe and Yellow Percent of Wound Bed Granulated/Red: [...] DD/ 1055 Signed By: <Electronically signed by BEJNI Shaffer> 05/29/22 1058 [facility] Work Phone: [phone]) 959-570512-08-2022 NoteCONSULTATION CONSULTATION DATE: 05/22/2022 HISTORY OF PRESENT [...] activity, his pain is 10/10. Standing, walking, bead wrapper hours, lifting and bending are most painful. [...] up and he agrees to move forward.[facility] [id number] NoteCONSULTATION CONSULTATION DATE: 04/24/2022 HISTORY OF PRESENT [...] in three months' time unless otherwise indicated.[facility] [id number] NoteCONSULTATION PROCEDURE DATE: 04/24/2022 PREOPERATIVE DIAGNOSIS: Bilateral [...] in the office in three months' time.[facility] [id number] NoteCONSULTATION CONSULTATION DATE: 03/25/2022 CHIEF COMPLAINT: Bilateral [...] patient understands and would like to proceed.[facility] [id number] Progress note Author Marisela Shaffer [facility] March 05, 2022 11:12am Note Date/Time March 05, 2022 11:12am [facility] [address] [place] [address] Wound Center Provider Note Signed Patient: Fani Chua MR#: [id number] : 1935 Acct:[id number] Age/Sex: 86 / M Copies to: NO FAMILY PHYSICIAN Marisela Shaffer APRN~ HPI Date of Visit Date of Visit: Date of Service: 03/05/2022 Time of Service: 11:06 Narrative HPI: 02/04/22 Te is an 86 year old male presenting to [facility] wound care program for an initial visit [...] to the left leg from the vacuum school cleaner, honey sheet to both areas, 2 [...] 2022 right, 02/18/22 Left 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 Lives with:: Spouse Appetite Description: [...] 10:50) Swelling of Lip/Tongue/Throat bacitracin [From Neosporin (gwc-qyn-cssug)] Allergy (Verified 03/05/22 10:50) itch and rash neomycin [From Neosporin (vac-roa-isxgx)] Allergy (Verified 03/05/22 10:50) itch and rash polymyxin B [From Neosporin (nni-oxv-wwiln)] Allergy (Verified 03/05/22 10:50) Rash and itch [...] 20 Dictated By: Marisela Shaffer APRN DD/ 05 Signed By: <Electronically signed by BENJI Shaffer> 03/05/22 1112 [facility] Work Phone: [phone]) 518-154409-07-2022 Progress note Author Marisela Shaffer [facility] February 19, 2022 10:32am Note Date/Time February 19, 2022 10:32am [facility] [address] [place] [address] Wound Center Provider Note Signed Patient: Fani Chua MR#: [id number] : 1935 Acct:[id number] Age/Sex: 86 / M Copies to: NO FAMILY PHYSICIAN Marisela Shaffer APRN~ HPI Date of Visit Date of Visit: Date of Service: 02/19/2022 Time of Service: 10:28 Narrative HPI: 02/04/22 Te is an 86 year old male presenting to [facility] wound care program for an initial visit [...] to the left leg from the vacuum school cleaner, honey sheet to both areas, 2 week appt Subjective Pain Right Lower Medial Leg: Pain Description: Tender Pain Intensity: 0 Wound/Ulcer History When did wound start?: January 13, 2022 right, 02/18/22 Left 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 Lives with:: Spouse Appetite Description: [...] 09:28) Swelling of Lip/Tongue/Throat bacitracin [From Neosporin (bxp-zbt-ejsrb)] Allergy (Verified 02/04/22 09:28) itch and rash neomycin [From Neosporin (efa-rzd-xhdqn)] Allergy (Verified 02/04/22 09:28) itch and rash polymyxin B [From Neosporin (deb-ewe-iphgm)] Allergy (Verified 02/04/22 09:28) Rash and itch Wound/Ulcer Right Lower Medial Leg: Type: Traumatic (laceration) Thickness: Full Bed Appearance: Beefy Red and Rodanthe Percent of Wound Bed Granulated/Red: 100 Percent [...] 0.1 CM Sq: 2.340 Surrounding Tissue Appearance: Rodanthe Surrounding Tissue Temp: Warm Drainage Amount: Small [...] <Electronically signed by BENJI Shaffer> 02/19/22 1032 [facility] Work Phone: 1([phone]) 854-230208-23-2022 Progress note Author Marisela Shaffer [facility] February 04, 2022 9:43am Note Date/Time February 04, 2022 9: 43am [facility] [address] [place] [address] Wound Center Provider Note Signed Patient: Fani Chua MR#: [id number] : 1935 Acct:[id number] Age/Sex: 86 / M Copies to: NO FAMILY PHYSICIAN Marisela Shaffer APRN~ HPI Date of Visit Date of Visit: Date of Service: 02/04/2022 Time of Service: 09:38 Narrative HPI: 02/04/22 Te is an 86 year old male presenting to [facility] wound care program for an initial visit [...] start?: January 13, 2022 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 Lives with:: Spouse Appetite Description: [...] 09:28) Swelling of Lip/Tongue/Throat bacitracin [From Neosporin (jjr-tpj-lluva)] Allergy (Verified 02/04/22 09:28) itch and rash neomycin [From Neosporin (lfv-paj-knbbx)] Allergy (Verified 02/04/22 09:28) itch and rash polymyxin B [From Neosporin (ecf-epp-vaeni)] Allergy (Verified 02/04/22 09:28) Rash and itch Wound/Ulcer Right Lower Medial Leg: Type: Traumatic (laceration) Thickness: Full Bed Appearance: Beefy Red and Rodanthe Percent of Wound Bed Granulated/Red: 100 Percent [...] <Electronically signed by BENJI Shaffer> 02/04/22 0943 [facility] Work Phone: [phone]) 232-171307-19-2022 NoteCONSULTATION CONSULTATION DATE: 12/31/2021 HISTORY OF PRESENT [...] like to proceed. CC: Trey ال[facility] Signed and Approved by: DR KRISTIN MCGUIRE . 01/07/2022 09:44:00[facility]04-27-2022 Evaluation note* Encounter Date Diagnosis Assessment [...] seen sooner, or recommendations for spine surgeon. [facility] Other 12-01-2021 Evaluation note* Encounter Date Diagnosis [...] work with them until he goes to [place] for the winter. While in [place] he will do his own home physical [...] sometime in September when he returns from [place]. [facility] Other 10-05-2021 Evaluation note* Encounter Date Diagnosis [...] right foot, unspecified cause (ICD-10 - M10.9) [facility] Other 09-18-2020 History of Present illness Narrative* [...] chest pain, no syncope and no palpitations. XP-Msnvxiczvk-BGU Dominick Hinton [address] [place] Work Phone: Chief complaint Narrative - Reported* FANI CHUA is being seen for a cardiovascular evaluation . 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 * A telephone visit (audio only) between the patient (at the originating site) and the provider (at the distant site) was utilized to provide this telehealth service. FY-Mlsqjejqdv-ZKP Dominick [address] [place] Work Phone: Discharge summary Author Isai May [facility] June 06, 2023 4:21pm Note Date/Time June 06, 2023 3:57pm [facility] [address] [place] [address] Discharge Summary Signed Patient: Fani Chua MR#: [id number] : 1935 Acct:[id number] Age/Sex: 88 / M Adm Date: 3 Loc: 4N Room: [address] [place] [address]: Isai May DO Copies to: Bonita Kingsley MD, [facility] DO María Harmon MD~ Providers Date of [...] for discharge and follow-up with his regular sr. logistics analyst. Low magnesium was repleted. High intensity statin [...] Isai May Follow Up: [facility] [Outside] (Call office on Thursday to schedule [...] signed by Isai May, > 06/06/23 1621 [facility] Work Phone: Discharge summary Author Ashley Merritt [facility] December 23, 2023 1:04pm Note Date/Time December 23, 2023 1:04 pm [facility] [address] [place] [address] Discharge Summary Signed Patient: Fani Chua MR#: [id number] : 1935 Acct:[id number] Age/Sex: 88 / M Adm Date: 4 Loc: 4N Room: [address] [place] [address]: Ashley Merritt MD Copies to: MD Ashley Jansen MD~ Providers Date of Discharge: 12/23/23 Discharging Provider: Ashley Merritt Primary Care Provider: María Anderson Consults: 12/21/23 20:53 Consult to Case Management Routine Comment: CM 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 Dr. Roly Morales [facility] [address] [place] [address] Incentive spirometry every hour while awake Prescriptions: [...] signed by Ashley Merritt MD> 12/23/23 1304 [facility] Work Phone: Discharge summary Author Bright Lopez [facility] February 27, 2024 5:08pm Note Date/Time February 27, 2024 5:08pm [facility] [address] [place] [address] Discharge Summary Signed Patient: Fani Chua MR#: [id number] : 1935 Acct:[id number] Age/Sex: 88 / M Adm Date: 4 Loc: Room: [address] [place] [address]: Bright Lopez MD Copies to: [...] % (Auto) 58.6, Lymph % (Auto) 22.7, Cole % (Auto) 16.3, Eos % (Auto) 1.4, Baso % (Auto) 1.0, Nucleat RBC Rel Count 0.0, Neut # (Auto) 2.4, Lymph # (Auto) 0.9 L, Cole # (Auto) 0.7, Eos # (Auto) 0.1, [...] signed by Bright Lopez MD> 02/27/24 1708 [facility] Work Phone: Evaluation note* Diagnosis Onset Date Resolution Status Traumatic wound acute [facility] Work Phone: Evaluation note* Diagnosis Onset Date Resolution Status Traumatic wound acute At high risk for altered skin integrity chronic Skin tear of left lower leg without complication chronic Thinning of skin chronic [facility] Work Phone: Evaluation note* Diagnosis Onset Date Resolution Status Skin tear of left lower leg without complication acute At high risk for altered skin integrity chronic Thinning of skin chronic [facility] Work Phone: evaluation noteNo assessment information available [facility] Work Phone: evaluation note* Diagnosis Onset Date Resolution Status At high risk for altered skin integrity chronic Inflammation chronic Pain chronic Thinning of skin chronic Traumatic wound chronic [facility] Work Phone: evaluation note* Diagnosis 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 Heart valve replaced by other means documented in this encounter [facility] Work Phone: Evaluation note* Diagnosis Onset Date Resolution Status At high risk for altered skin integrity chronic Inflammation chronic Pain chronic Thinning of skin chronic Traumatic wound resolved [facility] Work Phone: evaluation note* Diagnosis Onset Date Resolution Status At high risk for altered skin integrity chronic Inflammation chronic Pain chronic Thinning of skin chronic Traumatic wound resolved Blurred vision acute Bundle branch block acute Elevated troponin level not due to acute coronary syndrome acute History of transcatheter aor tic valve replacement (TAVR) acute Atrial fibrillation chronic [facility] Work Phone: evaluation note* Diagnosis 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 Permanent atrial fibrillation (Multi) Atrial fibrillation Coronary artery disease, unspecified vessel or lesion type, unspecified whether angina present, unspecified whether kotlik or transplanted heart Congestive heart failure, NYHA class 2, unspecified congestive heart failure type (Multi) Pulmonary hypertension (Multi) Other chronic pulmonary heart diseases Hypertension, unspecified type Pure hypercholesterolemia PVD (peripheral vascular disease) ([facility]) Unspecified peripheral vascular disease Type 2 diabetes mellitus without complication, unspecified whether custodial insulin use (Multi) Stage 2 chronic kidney disease Former smoker Personal history of tobacco use, presenting hazards to health documented in this encounter [facility] Work Phone: Evaluation note* Diagnosis Onset Date Resolution Status Contusion of rib on right side acute Fall from slip, trip, or stumble acute Right knee injury acute Traumatic hematoma of forehead acute [facility] Work Phone: Evaluation note* Diagnosis Onset Date [...] Traumatic hematoma of forehead acute Pain chronic [facility] Work Phone: Evaluation note* Diagnosis Onset Date [...] pain resolved Right patella fracture resol t[facility] Work Phone: Evaluation note* Diagnosis Onset Date [...] right knee acute Right patella fracture acute [facility] Work Phone: Evaluation note* Diagnosis Onset Date [...] Numbness and tingling in left arm acute [facility] Work Phone: Evaluation note* Diagnosis Onset Date [...] arm acute Transient ischemic attack (TIA) acute [facility] Work Phone: evaluation note* Diagnosis Onset Date [...] right knee acute Right patella fracture acute [facility] Work Phone: Evaluation note* Diagnosis Onset Date [...] Subtherapeutic international normalized ratio (INR) acute Weakness [facility] Work Phone: Evaluation note* Diagnosis [...] Subtherapeutic international normalized ratio (INR) acute Weakness [facility] Work Phone: Evaluation note* Diagnosis [...] Rotator cuff syndrome of right shoulder acute [facility] Work Phone: Evaluation note* Diagnosis Seborrheic keratosis- Primary documented in this encounter [facility] HealthcareEvaluation note* Diagnosis TIA (transient ischemic attack)- Primary Unspecified transient cerebral ischemia Cervical spondylosis without myelopathy Hyperreflexia Abnormal reflex documented in this encounter [facility] HealthcareEvaluation note* Diagnosis Skin tear of left elbow without complication, initial encounter- Primary Left leg cellulitis Left leg swelling Blood blister Vascular disorder of skin documented in this encounter [facility] HealthcareEvaluation note* Diagnosis Non-pressure chronic ulcer of other part of left lower leg with fat layer exposed ([facility])- Primary documented in this encounter [facility] HealthcareEvaluation note* Diagnosis 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 documented in this encounter [facility] Work Phone: Evaluation note* Diagnosis 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 Coronary artery disease, unspecified vessel or lesion type, unspecified whether angina present, unspecified whether kotlik or transplanted heart Pulmonary hypertension (Multi) Other chronic pulmonary heart diseases Congestive heart failure, NYHA class 2, unspecified congestive heart failure type Permanent atrial fibrillation (Multi) Atrial fibrillation PVD (peripheral vascular disease) ([facility]) Unspecified peripheral vascular disease Former smoker Personal history of tobacco use, presenting hazards to health BMI 23.0-23.9, adult documented in this encounter [facility] Work Phone: Evaluation note* Diagnosis Lumbosacral spondylosis without myelopathy- Primary Skin tear of left elbow without complication, initial encounter Left leg cellulitis documented in this encounter [facility] HealthcareEvaluation note* Diagnosis Congestive heart failure, NYHA class 2, unspecified congestive heart failure type BMI 24.0-24.9, adult Former smoker Personal history of tobacco use, presenting hazards to health documented in this encounter [facility] Work Phone: Evaluation note* Diagnosis TIA (transient ischemic attack)- Primary Unspecified transient cerebral ischemia Generalized muscle weakness Muscle weakness (generalized) Chronic systolic congestive heart failure, NYHA class 2 ([facility]) documented in this encounter [facility] HealthcareEvaluation note* Diagnosis Nontraumatic tear of right rotator cuff, unspecified tear extent- Primary documented in this encounter [facility]* Diagnosis Mixed hyperlipidemia ([facility])- Primary Mixed hyperlipidemia Prediabetes Other abnormal glucose 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 ([facility]) Chronic atrial fibrillation (HCC) ([facility]) Atrial fibrillation Congestive heart failure, NYHA class 2, unspecified congestive heart failure type ([facility]) Gastroesophageal reflux disease without esophagitis Esophageal reflux Anemia, unspecified type Lumbosacral spondylosis without myelopathy History of gout Personal history of endocrine, metabolic, and immunity disorders Centrilobular emphysema ([facility]) Medicare annual wellness visit, subsequent ACP (advance care planning) Other specified counseling documented in this encounter [facility]* Diagnosis Acute non-recurrent pansinusitis- Primary Acute cough Wheeze Wheezing Cerumen debris on tympanic membrane of left ear documented in this encounter [facility]* Diagnosis Sinus congestion- Primary Other diseases of nasal cavity and sinuses Throat discomfort Throat pain Light headedness Dysfunction of both eustachian tubes Bruising Contusion of unspecified site Epistaxis Chronic systolic congestive heart failure, NYHA class 2 ([facility]) documented in this encounter [facility] general Narrative - Reported* Type Description Date Medical History A fib Medical History bladder cancer Medical History prostate cancer Medical History type II diabetes Medical History spinal stenosis Medical History NON-HEALING ULCER RLE Medical History CAD Surgical History cystoscopy,January;Disease:Kidne y Stones 2008 Surgical History rotater cuff Surgical History Cardioversion in the fall :afib 2007 Surgical History left hip Surgical History bladder Surgical History prostatectomy 1996 Surgical History bladder cancer tumor removed 19 96 Surgical History R hallux fused;Disease:pain R h allux 1995 Surgical History neuroma removed R foot Surgical History diet controlled;Disease:type II diabetes Surgical History cystoscopy ureterosc opy,left ureteral calculus stricture Surgical History hip replacement,on Left.March 29;Disease:AVN 2008 Surgical History Colonoscopy, Diverticulosis 201 2 Surgical History corrective lenses visual impair ment Surgical History left rotator cuff repair,at [facility] Surgical History Colonoscopy per Dr. Erwin 05-27 Surgical History heart valve replacement 03/2020 Surgical History status post right total hip 202 1 Hospitalization History left rotator cuf f repair Dr. Zurita in [facility] 01/2015 Hospitalization History see surgical hx [facility] Other History general Narrative - Reported* Type Description Date Medical History A fib Medical History bladder cancer Medical History prostate cancer Medical History type II diabetes Medical History spinal stenosis Medical History NON-HEALING ULCER RLE/LLE Medical History CAD Surgical History cystoscopy,January;Disease:Kidne y Stones 2008 Surgical History rotater cuff [...] ment Surgical History left rotator cuff repair,at [facility] Surgical History Colonoscopy per Dr. Erwin 05-27 Surgical History heart valve replacement 03/2020 Surgical History status post right total hip 202 1 Hospitalization History left rotator cuf f repair Dr. Zurita in [facility] 01/2015 Hospitalization History see surgical hx [facility] Other Hospital Discharge instructions Additional Instructions Elevate your left lower extremity as instructed Take your antibiotic as instructed until gone Please return if you develop any fevers, chills, calf pain, increased pain, increased redness, increased swelling, or any other concern You have blood cultures that are pending.[facility] Work Phone: Hospital Discharge instructions Additional Instructions [...] other reasons. If it is to remain custodial, however, changes of the stent are required [...] the next 2 to 3 weeks. [ ][facility] Work Phone: Hospital Discharge instructionsAmbulatory Orders* Initiate Home Health Time Frame: 1 Day, Location: Determined By Patient Additional Instructions Home Home Health to manage care: - Full code - PT/OT eval and treat - Routine vital signs - Weight bearing as tolerated Please do not take Tramadol if taking Oxycodone.[facility] Work Phone: Hospital Discharge instructionsAmbulatory Orders* PT/OT/SP OutPatient Referral Time Frame: 1 Day, Location: Determined By Patient [facility] Work Phone: Hospital Discharge instructions Additional Instructions Its important that you take your antibiotics as instructed until gone Push fluids Rest Return here if any problems persist or worsen.[facility] Work Phone: Instructions* Name Dates Details Instructions not documented WO-Onkrubjjma-TJN [facility] [address] [place] Work Phone: Instructions* Name Dates Details Instructions not documented FU-Kbvsqhpert-JSH [facility] [address] [place] Work Phone: Instructions* Name Dates Details Instructions not documented CB-[id number]-DBM [facility] [address] [place] Work Phone: Progress note Author Marisela Shaffer [facility] March 19, 2022 10:50am Note Date/Time March 19, 2022 10 :50am [facility] [address] [place] [address] Wound Center Provider Note Signed Patient: Fani Chua MR#: [id number] : 1935 Acct:[id number] Age/Sex: 86 / M Copies to: NO FAMILY PHYSICIAN Marisela Shaffer APRN~ HPI Date of Visit Date of Visit: Date of Service: 03/19/2022 Time of Service: 10:48 Narrative HPI: 02/04/22 Te is an 86 year old male presenting to [facility] wound care program for an initial visit [...] to the left leg from the vacuum school cleaner, honey sheet to both areas, 2 [...] 2022 right, 02/18/22 Left 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 Lives with:: Spouse Appetite Description: [...] 10:31) Swelling of Lip/Tongue/Throat bacitracin [From Neosporin ([id number])] Allergy (Verified 03/19/22 10:31) itch and rash neomycin [From Neosporin ([id number])] Allergy (Verified 03/19/22 10:31) itch and rash polymyxin B [From Neosporin ([id number])] Allergy (Verified 03/19/22 10:31) Rash and itch [...] <Electronically signed by BENJI Shaffer> 03/19/22 1050 [facility] Work Phone: Reason for visit Narrative* CV Imaging (Routine) - Authorized Specialty Diagnoses / Procedures Referred By Contac t Referred To Contact Cardiology Diagnoses 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 His last [...] and currently on Coumadin managed by the [facility] Coumadin clinic without bleeding complications. His last [...] Unilateral primary osteoarthritis, right FOLLOW UP FROM [facility] arm numbness, tingly Reason [...] Unilateral primary osteoarthritis, right FOLLOW UP FROM [facility] arm numbness, tingly 4 [...] Unilateral primary osteoarthritis, right FOLLOW UP FROM [facility] arm numbness, tingly 4 [...] M25.511 M17.11 S82.001A CONSULT MARIA FERNANDA LAWS NP RIGHT SHOULDER [...] June 15, 2024 1: 21pm Advance Directives Advance Directive Response Recorded Date/ Time Advance Directives No April 11:20am Advance Directive Response Recorded Date/ Time Advance Directives No April 10:20am Summary Purpose Reason for Referral Specialty Diagnoses / Procedures Referred By Contac t Referred To Contact Cardiology Diagnoses 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 Procedures Transthoracic Echo (TTE) Complete LA ECHO TRANSTHORC R-T 2D W/WO M-MODE REC F-UP/LMTD LA DOP ECHOCARD COLOR FLOW VELOCITY MAPPING LA DOP ECHOCARD PULSE WAVE W/SPECTRAL F-UP/LMTD STD Bonita Kingsley MD [address] [address] Referral ID Status Reason Start Date Expiration Date Visits Requested Visits Authorized [id number] Authorized Perform Procedure 03/05/2023 09/01/2023 1 1 Additional Source Comments REASON FOR VISIT (unrecogniz ed section and content) Specialty Diagnoses / Procedures Referred By Contac t Referred To Contact Cardiology Diagnoses 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 Procedures Transthoracic Echo (TTE) Complete LA ECHO TRANSTHORC R-T 2D W/WO M-MODE REC F-UP/LMTD LA DOP ECHOCARD COLOR FLOW VELOCITY MAPPING LA DOP ECHOCARD PULSE WAVE W/SPECTRAL F-UP/LMTD STD Bonita Kingsley MD [address] [place] [address] [address], [address] [address] Referral ID Status Reason Start Date Expiration Date Visits Requested Visits Authorized [id number] Authorized Perform Procedure 03/05/2023 09/01/2023 1 1 Reason Comments [place] [facility] [place] Reason Comments Suspicious Skin Lesion Reason Comments Wound Check Referral Reason Comments Follow-up 6m and echo results Specialty Diagnoses / Procedures Referred By Contac t Referred To Contact Cardiology Diagnoses Nonrheumatic aortic valve stenosis Procedures Follow Up In Cardiology Bonita Kingsley MD [address] [place] [address] [address], [address] [address] Phone: tel: fax: Bonita Kingsley MD [address] [place] [address], [address] [address] Phone: tel: fax: Referral ID Status Reason Start Date Expiration Date V isits Requested Visits Authorized [id number] Authorized 09/29/2023 09/28/2024 1 1 Reason Onset Date Comments Med Refill 04/25/2024 Reason Comments Blood Pressure Check Specialty Diagnoses / Procedures Referred By Contac t Referred To Contact Cardiology Diagnoses Congestive heart failure, NYHA class 2, unspecified congestive heart failure type Procedures Follow Up In Cardiology Bonita Kingsley MD [address] [place] [address] [address], [address] [address] Phone: tel: fax: Bonita Kingsley MD [address] [place] [address] [address], [address] [address] Phone: tel: fax: Referral ID Status Reason Start Date Expiration Date V isits Requested Visits Authorized [id number] Authorized 04/18/2024 04/18/2025 1 1 Reason Comments Post Hospital Reason Comments Shoulder Pain Reason Comments 6 Month Follow Up Medicare Annual Wellness Visit Subsequen t Reason Comments Sinus Problem Reason Comments Sinusitis Care Teams (unrecognized sec tion and content) [...] 2023 End: December 20, 2023 Mona Tyler NP-Jose Other Provider Active Start: December 20, 2023 [...] Provider Active St art: December 20, 2023 uRbio Crooks Jr, MD Emergency Provider Active Start: December 20, 2023 Henry Louise DO RES Active St art: December 20, 2023 Isai May DO Admit Provider, Atte nding Provider Active Start: December 20, 2023 Team Status: Active Member Role Status Dates Marisela Shaffer APRN Attending Provider Active PHYSICIAN NO FAMILY Primary Care Provider Active Team Status: Inactive Member Role Status Dates Trey Zohra , DO Primary Care Provider Active María Stevenson [...] Status Dates Trey العلي DO Primary Care Provider, Attending Fito payan Active Team Status: Inactive Member Role Status Tj Anderson MD Primary Care Provider, Attending Walter ider Active Team Status: Inactive Member Role Status Tj Anderson MD Primary Care Provider Active Gely Lin , BENJI Emergency Provider Active Team Status: Active Member Role Status Tj Anderson MD Primary Care Provider Active Marisela Shaffer APRN Attending Provider Active Team Status: Inactive Member Role Status Tj Anderson MD Primary Care Provider Active Julio C Ramirez MD Attending Provider Active Team Status: Inactive Member Role Status Tj Anderson MD Primary Care Provider Active Marisela Shaffer APRN Attending Provider Active Assistant Property Manager Relationship Specialty Start Date End Date María Anderson MD [address] [place] [address] PCP - General 02/24/23 Team Status: Inactive Member Role Status Tj Anderson MD Primary Care Provider Active Tay Wood , DO Emergency Provider Active Nena Segura , DO RES Active Isai May , DO Admit Provider, Attending Provider Active Buck Glover , DO Other Provider Active Lenora Gonzalez , ANA Other Provider Active Elizabeth Hassan , DO Other Provider Active Bonita Kingsley MD Other Provider Active Lico Bolivar MD Other Provider Active Dominick Lugo MD Other Provider Active Robert Avila MD Other Provider Active Yandy Lewis [employer] Other Provider Active Vika Goyal MD Other Provider Active Manpreet Rolon MD Other Provider Active Jarod Hills MD Other Provider Active Kelly Hernandez , [facility]- Other Provider Active Emily Latham MD Other Provider Active Assistant Property Manager Relationship Specialty Start Date End Date María Anderson MD [address] [place] [address] PCP - General 02/24/23 Team Status: Active [...] Henry Clark MD Other Provider Active Start: [email or web address] Cherelle Schmidt APRN Other Provider Active St art: December 22, 2023 Kel Juan Jr, DO Other Provider Active S tart: December 22, 2023 Elver Cifuentes MD Attending [facility], Other Provider Active Start: December 22, 2023 Rubio Waite MD Other Provider Active Start: J [email or web address] Aspen Bishop MD Other Provider Active Star [...] Henry Clark MD Other Provider Active Start: 2023 End: December 23, 2023 Cherelle Schmidt APRN Other Provider Active St art: December 22, 2023 End: December 23, 2023 Kel Juan Jr, DO Other Provider Active S tart: December 22, 2023 End: December 23, 2023 Elver Cifuentes MD Other Provider Active Start: December 22, 2023 End: December 23, 2023 Rubio Waite MD Other Provider Active Start: 2023 End: December 23, 2023 Aspen Bishop MD Other Provider Active Star t: December 22, 2023 End: December 23, 2023 Mona Tyler NP-C Other Provider Active Start: December 22, 2023 End: December 23, 2023 Royl Morales DO Other Provider Active Start : [...] S tart: December 22, 2023 Ramses Garcia , Other Provider Active Start: December 22, 2023 Radha Woodward MD Other Provider Active Start: 2023 Henry Clark MD Other Provider Active Start: J belia 2023 Cherelle Schmidt , BENJI Other Provider Active St art: December 22, [...] 2023 End: December 29, 2023 Shabnam Ley , ANA Other Provider Active Start: J 2023 End: December 29, 2023 Macrina Rubio , ANA Other Provider Active Start: 2023 End: December [...] 23, 2023 End: December 29, 2023 Hola aPrkinson MD Other Provider Active Start: 2023 End: [...] Wesly Palmer MD Other Provider Active Start: ly 2023 End: December 29, 2023 Naheed Uriostegui RN Other Provider Active Start: 2023 End: December 29, 2023 Team Status: Active Member Role Status Dates María Anedrson MD Primary Care Provider Active St art: December 24, 2023 Henry Clark MD Admit Provider, Atte camposing Provider, Other Provider Active Start: December 24, 2023 Autumn Jones RN Other Provider Active Star t: December 24, 2023 Joy Chaudhry RN Other Provider Active Start : December 24, 2023 Analy Koenig RN Other Provider Active Star t: December 24, 2023 Shabnam Ley RN Other Provider Active Start: Steph belia 2023 Macrina Rubio RN Other Provider Active Start: Ju ly 2023 Bebe Ivey MD Other Provider Active Start: December 24, 2023 Tracy Bar , Other Provider Active Start : December 24, 2023 Jose Kelsey MD Other Provider Active Start : December 24, 2023 Parviz Roth DO Other Provider Active Start: December 24, 2023 Hilario Skelton MD Other Provider Active Start: December 24, 2023 Ashley Merritt MD Other Provider Active Start : December 24, 2023 Jaguar Brewer MD Other Provider Active Start: 2023 Kiki Claros APRN Other Provider Active [...] Parkinson MD Other Provider Active Start: 2023 Bunny Fowler MD Other Provider Active Start: Dec Tara Wright NP-C Other Provider Active St art: December 24, [...] tart: December 24, 2023 Fred Yanes , DO Other Provider Active Star t: December 24, 2023 Charley Butcher , Other Provider Active Start: December 24, 2023 Marcelo Sharpe MD Other Provider Active Start: December 24, 2023 Norma Box MD Other Provider Active Start: December 23 Rubi Alston APRN Other Provider Active Star t: December 24, 2023 Aidan Knight MD Other Provider Active Start: 2023 Wesly Palmer MD Other Provider Active Start: Selena vera 2023 Naheed Uriostegui RN Other Provider Active Start: J 2023 Team Status: Active Member Role Status Tj [...] 2024 End: January 22, 2024 Buck Glover , DO Other Provider Active Start: January 21, 2024 End: January 22, 2024 Team Status: Inactive Member Role Status Tj Anderson MD Primary Care Provider Active St art: February 03, 2024 End: February 03, 2024 Roly Morales , DO Attending Provider Active S tart: February 03, 2024 End: February 03, 2024 Team Status: Active Member Role Status Tj Anderson MD Primary Care Provider Active St art: February 03, 2024 Roly Morales DO Attending Provider Active S tart: February 03, 2024 Team Status: Active Member Role Status Tj Anderson MD Primary Care Provider Active St art: February 26, 2024 Alec Bliss DO Emergency Provider Active Sta rt: February 26, 2024 Bright Lopez MD Admit Provide r, Attending Provider Active Start: February 26, 2024 Team Status: Inactive Member Role Status Tj Anderson MD Primary Care Provider Active St art: February 26, 2024 End: February 27, 2024 Alec Bliss DO Emergency Provider Active Sta rt: [...] March 08, 2024 End: March 08, 2024 Assistant Property Manager Relationship Specialty Start Date End Date María Anderson MD [address] [place] [address] PCP - General Internal Medicine 11/04/22 María Anderson MD [address] [place] [address] PCP - ACO Reach 03/15/24 Frank Hook MD [address] [place] [address] Referring Physician Dermatology 05/14/23 Julio C Ramirez MD [address] [place] [address] Referring Physician Urology 05/14/23 Bonita Kingsley MD [address] [facility] [address] [place] [address] Referring Physician Cardiology 05/14/23 Assistant Property Manager Relationship Specialty Start Date End Date María Anderson MD [address] [place] [address] PCP - General Internal Medicine 11/04/22 María Anderson MD [address] [place] [address] PCP - ACO Reach 03/15/24 Frank Hook MD [address] [place] [address] Referring Physician Dermatology 05/14/23 Julio C Ramirez MD [address] [place] [address] Referring Physician Urology 05/14/23 Bonita Kingsley MD [address] [facility] [address] [place] [address] Referring Physician Cardiology 05/14/23 Assistant Property Manager Relationship Specialty Start Date End Date María Anderson MD [address] [place] [address] PCP - General Internal Medicine 11/04/22 María Anderson MD [address] [place] [address] PCP - ACO Reach 03/15/24 Frank Hook MD [address] [place] [address] Referring Physician Dermatology 05/14/23 Julio C Ramirez MD [address] [facility] [place] [address] Referring Physician Urology 05/14/23 Bonita Kingsley MD [address] [facility] [address] [place] [address] Referring Physician Cardiology 05/14/23 Assistant Property Manager Relationship Specialty Start Date End Date María Anderson MD [address] [place] [address] PCP - General Internal Medicine 11/04/22 María Anderson MD [address] [place] [address] PCP - ACO Reach 03/15/24 Frank Hook MD [address] [place] [address] Referring Physician Dermatology 05/14/23 Julio C Ramirez MD [address] [place] [address] Referring Physician Urology 05/14/23 Bonita Kingsley MD [address] [address] [place] [address] Referring Physician Cardiology 05/14/23 Assistant Property Manager Relationship Specialty Start Date End Date María Anderson MD [address] [place] [address] PCP - General Internal Medicine 11/04/22 María Anderson MD [address] [place] [address] PCP - ACO Reach 03/15/24 Frank Hook MD [address] [place] [address] Referring Physician Dermatology 05/14/23 Julio C Ramirez MD [address] [place] [address] Referring Physician Urology 05/14/23 Bonita Kingsley MD [address] [place] [address] Referring Physician Cardiology 05/14/23 Assistant Property Manager Relationship Specialty Start Date End Date María Anderson MD [address] [place] [address] PCP - General Internal Medicine 11/04/22 María Anderson MD [address] [place] [address] PCP - ACO Reach 03/15/24 Frank Hook MD [address] [place] [address] Referring Physician Dermatology 05/14/23 Julio C Ramirez MD [address] [facility] [place] [address] Referring Physician Urology 05/14/23 Bonita Kingsley MD [address] [facility] [address] [place] [address] Referring Physician Cardiology 05/14/23 Assistant Property Manager Relationship Specialty Start Date End Date María Anderson MD [address] [place] [phone] PCP - General 02/24/23 Assistant Property Manager Relationship Specialty Start Date End Date María Anderson MD [address] [place] [phone] PCP - General 02/24/23 Assistant Property Manager Relationship Specialty Start Date End Date María Anderson MD [address] [place] [address] PCP - General Internal Medicine 11/04/22 María Anderson MD [address] [place] [address] PCP - ACO Reach 03/15/24 Frank Hook MD [address] [place] [address] Referring Physician Dermatology 05/14/23 Julio C Ramirez MD [address] [place] [address] Referring Physician Urology 05/14/23 Bonita Kingsley MD [address] [place] [address] Referring Physician Cardiology 05/14/23 Assistant Property Manager Relationship Specialty Start Date End Date María Anderson MD [address] [place] [phone] PCP - General 02/24/23 Assistant Property Manager Relationship Specialty Start Date End Date María Anderson MD [address] [place] [address] PCP - General Internal Medicine 11/04/22 Trey اعللي DO [address] [place] [address] PCP - ACO Reach 11/06/22 Frank Hook MD [address] [place] [address] Referring Physician Dermatology 05/14/23 Julio C Ramirez MD [address] [place] [address] Referring Physician Urology 05/14/23 Bonita Kingsley MD [address] [place] [address] Referring Physician Cardiology 05/14/23 Assistant Property Manager Relationship Specialty Start Date End Date María Anderson MD [address] [place] [address] PCP - General Internal Medicine 11/04/22 María Andersno MD [address] [place] [address] PCP - ACO Reach 03/15/24 Frank Hook MD [address] [place] [address] Referring Physician Dermatology 05/14/23 Julio C Ramirez MD [address] [facility] [place] [address] Referring Physician Urology 05/14/23 Bonita Kingsley MD [address] [place] [address] Referring Physician Cardiology 05/14/23 Team Status: Inactive [...] June 15, 2024 End: June 15, 2024 Assistant Property Manager Relationship Specialty Start Date End Date María Anderson MD [address] [place] [address] PCP - General Internal Medicine 11/04/22 María Anderson MD [address] [place] [address] PCP - ACO Reach 03/15/24 Frank Hook MD [address] [place] [address] Referring Physician Dermatology 05/14/23 Julio C Ramirez MD [address] [place] [address] Referring Physician Urology 05/14/23 Bonita Kingsley MD [address] [facility] [address] [place] [address] Referring Physician Cardiology 05/14/23 Assistant Property Manager Relationship Specialty Start Date End Date María Anderson MD [address] [place] [address] PCP - General Internal Medicine 11/04/22 María Anderson MD [address] [place] [address] PCP - ACO Reach 03/15/24 Frank Hook MD [address] [place] [address] Referring Physician Dermatology 05/14/23 Julio C Ramirez MD [address] [place] [address] Referring Physician Urology 05/14/23 Bonita Kingsley MD [address] [place] [address] Referring Physician Cardiology 05/14/23 Assistant Property Manager Relationship Specialty Start Date End Date María Anderson MD [address] [place] [address] PCP - General Internal Medicine 11/04/22 María Anderson MD [address] [place] [address] PCP - ACO Reach 03/15/24 Frank Hook MD [address] [place] [address] Referring Physician Dermatology 05/14/23 Julio C Ramirez MD [address] [place] [address] Referring Physician Urology 05/14/23 Bonita Kingsley MD [address] [facility] [address] [place] [address] Referring Physician Cardiology 05/14/23 Assistant Property Manager Relationship Specialty Start Date End Date María Anderson MD [address] [place] [address] PCP - General Internal Medicine 11/04/22 María Anderson MD [address] [place] [address] PCP - ACO Reach 03/15/24 Frank Hook MD [address] [place] [address] Referring Physician Dermatology 05/14/23 Julio C Ramirez MD [address] [facility] [place] [address] Referring Physician Urology 05/14/23 Bonita Kingsley MD [address] [facility] [address] [place] [address] Referring Physician Cardiology 05/14/23 Goals (unrecognized section [...] section and content) DATE CREATED AUTHOR 02/26/2022 [facility] DATE CREATED AUTHOR AUTHOR'S ORGANIZ ATION 04/05/2022 [facility] DATE CREATED AUTHOR AUTHOR'S ORGANIZ ATION 11/23/2022 [facility] DATE CREATED AUTHOR AUTHOR'S ORGANIZ ATION 02/25/2023 [facility] DATE CREATED AUTHOR AUTHOR'S ORGANIZ ATION 02/25/2023 [facility] DATE CREATED AUTHOR AUTHOR'S ORGANIZ ATION 04/18/2024 [facility] DATE CREATED AUTHOR AUTHOR'S ORGANIZ ATION 05/20/2024 [facility] DATE CREATED AUTHOR AUTHOR'S ORGANIZ ATION 07/02/2024 [facility] DATE CREATED AUTHOR AUTHOR'S ORGANIZ ATION 08/18/2024 [facility] DATE CREATED AUTHOR AUTHOR'S ORGANIZ ATION 09/21/2024 [facility] DATE CREATED AUTHOR AUTHOR'S ORGANIZ ATION 10/23/2024 [facility] DATE CREATED AUTHOR AUTHOR'S ORGANIZ ATION 10/26/2024 [facility] DATE CREATED AUTHOR AUTHOR'S ORGANIZ ATION 10/28/2024 [facility] DATE CREATED AUTHOR AUTHOR'S ORGANIZ ATION 11/11/2024 [facility] DATE CREATED AUTHOR AUTHOR'S ORGANIZ ATION 11/20/2024 [facility]ists EPIC FOR RECORDS PERTAINING TO PATIENTS WHO ARE [...] BE BASED ON THE PRIMARY CLINICAL RECORDS. [facility] [employer] provides no warranty or guarantee of the accuracy or completeness of information in this document.
--- NOTE | 2024-12-04 09:03 | ECG_ITS ---
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 Measurements Intervals Enterprise Rate: 87 P: -35763 HI: -40175 QRS: -68 QRSD: 132 T: 85 QT: 358 QTc: 402 Interpretive Statements 94104 Atrial fibrillation with aberrant conduction, or ventricular premature complexes 2330 Nonspecific intraventricular conduction block 3114 Cannot rule out anterior myocardial infarction, age undetermined 7200 Abnormal left axis deviation 9150 abnormal ECG Compared to ECG 10/08/2022 13:27:46 No significant changes Electronically Signed On 12-04-2024 22:06:23 EDT by JACQUES TAYLOR M.D.
[2024-12-04 09:30] LABS: Hematocrit 33.6 % (42.0-54.0); Mean Corpuscular HGB Conc 32.7 g/dL (29.9-35.2); Mean Corpuscular Hemoglobin 29.6 pg (25.9-34.0); Mean Corpuscular Volume 90.6 fL (80.0-94.0); Mean Platelet Volume 10.1 fL (9.5-13.5); Platelet Count 140 10^3/uL (150-450); Red Blood Count 3.71 10^6/uL (4.70-6.10); Red Cell Distribution Width 16.8 % (11.0-15.0)
[2024-12-04] MEDS: 0.9 % SODIUM CHLORIDE 1,000 ML 500 ML IV (09:41)
[2024-12-04 09:48] LABS: Alanine Aminotransferase 41 U/L (16-63); Albumin Level 3.3 g/dL (3.4-5.0); Alkaline Phosphatase 95 U/L (46-116); Anion Gap 14.2; Aspartate Amino Transferase 49 U/L (15-37); Bilirubin Total 1.3 mg/dL (0.2-1.0); Calcium 8.6 mg/dL (8.5-10.1); Carbon Dioxide 24.9 mmol/L (21.0-32.0); Chloride 104 mmol/L (98-107); Estimated GFR (African America >60 (>=60 mL/min/1.73m^2); Estimated GFR (Non-African Ame >60 (>=60 mL/min/1.73m^2); Globulin 3.2 g/dL; Glucose 115 mg/dL (74-106); INR 1.61; Magnesium 1.3 mg/dL (1.8-2.4); Potassium 4.1 mmol/L (3.5-5.1); Prothrombin Time 16.3 sec (9.0-11.6); Sodium 139 mmol/L (136-145); Total Protein 6.5 g/dL (6.4-8.2); Troponin I High Sensitivity 23.6 pg/mL (4.0-76.1)
[2024-12-04 09:54] LABS: Band Neutrophils Absolute 0.1 10^3/uL (0.0-0.3); Segmented Neut Absolute Manual 4.25 10^3/uL (1.4-6.5)
--- NOTE | 2024-12-04 10:04 | ED.DIZZY1 ---
HPI - Dizziness General Chief Complaint: Dizziness Stated Complaint: LIGHTHEADED SOB Time Seen by Provider: 12/04/24 09:02 Source: patient Mode of arrival: walk-in History of Present Illness HPI Narrative: The patient is a 89-year-old male with history of hypertension A-fib and hyperlipidemia, is coming to the ER with a sense of difficulty breathing and dizziness that he noticed yesterday after he was working outside for 6 hours, the patient have a history of mini stroke according to his history and he is concerned about that that why he came to the ER But the patient mentioned also sometimes feeling that trickling feeling in his throat and some difficulty breathing that was there yesterday The patient was outside almost 6 hours doing some yard work but he mentioned that he was hydrating during that time The patient denies any chest pain nausea vomiting or any abdominal pain Related Data Home Medications ?Medication ?Instructions ?Recorded ?Confirmed atorvastatin 40 mg tablet 40 mg PO DAILY 12/04/24 12/04/24 cephalexin 500 mg capsule 500 mg PO Q12H 12/04/24 12/04/24 losartan 25 mg tablet 25 mg PO DAILY 12/04/24 12/04/24 warfarin 5 mg tablet 10 mg PO HS 12/04/24 12/04/24 Previous Rx's ?Medication ?Instructions ?Recorded fluticasone propionate 50 2 spray intranasal Q12H #16 grams 12/04/24 mcg/actuation nasal spray,suspension (Flonase Allergy Relief) Allergies Allergy/AdvReac Type Severity Reaction Status Date / Time amoxicillin Allergy Severe Anaphylaxis Verified 12/04/24 08:57 Review of Systems ROS Status of ROS 10 or more systems reviewed and unremarkable except as noted in history and below Exam Narrative Exam Narrative: Nurses notes and vital signs reviewed and patient is not hypoxic. General: Well-appearing and in no apparent distress. Skin: Warm, dry, no pallor noted. No rash. Head: Normocephalic, atraumatic. Neck: Supple, non-tender. Eye: Pupils are equal, round and EOMI. No scleral icterus. Ears, Nose, Mouth, and Throat, no nasal mucosal hypertrophy. Oral mucosa is moist, no posterior oropharynx erythema, uvula is mid-line Cardiovascular: Regular Rate and Rhythm without murmur, gallop or rub. Respiratory: No accessory muscle use or respiratory distress. Lungs are clear to auscultation, no wheezing, rales or rhonchi Chest Wall: no tenderness Back: No midline thoracic or lumbar vertebral tenderness. No CVA tenderness Musculoskeletal: normal ROM, no calf or popliteal tenderness, no lower extremity edema/swelling GI: Abdomen is soft, non-distended. Normal bowel sounds. No masses appreciated. No tenderness to palpation. No rebound, guarding, or rigidity noted. Neurological: A&O x4. No cranial nerve dysfunction observed. No truncal ataxia. Constitutional Vital Signs, click to edit/add: Last Vital Signs Temp 98 F 12/04/24 09:04 Pulse 86 12/04/24 10:50 Resp 19 12/04/24 10:50 BP 110/65 12/04/24 10:31 Pulse Ox 97 12/04/24 10:50 O2 Del Method Room Air 12/04/24 08:57 Course Vital Signs Vital signs: Vital Signs Pulse Rate 92 H 12/04/24 08:57 Respiratory Rate 24 H 12/04/24 08:57 Blood Pressure 129/83 12/04/24 08:57 Pulse Oximetry 95 12/04/24 08:57 Oxygen Delivery Method Room Air 12/04/24 08:57 Temperature 98 F 12/04/24 09:04 Pulse Rate 86 12/04/24 10:50 Respiratory Rate 19 12/04/24 10:50 Blood Pressure 110/65 12/04/24 10:31 Pulse Oximetry 97 12/04/24 10:50 Oxygen Delivery Method Room Air 12/04/24 08:57 MDM - Dizziness MDM Narrative Medical decision making narrative: The patient throat examination was benign he had a patent airway EKG showing A-fib with a heart rate of [address] elevation or depression CBC showed no acute pathology with a chemistry showing elevated BUN and the magnesium was 1.3 The patient chest x-ray showed no acute pathology CT head showed no acute pathology as well Patient was provided IV fluids as well as IV magnesium and look at the CAT scan the patient does have some maxillary sinus disease and he was started on Flonase for that No tenderness on palpation of the left maxillary sinus The patient instructed about hydration and avoiding exposure to the hot outside temperature for the next 2 days specially that we have 90-day Fahrenheit temperature and to hydrate properly The patient is to follow up with primary care physician in next 2-3 days or to return to the emergency department should any of the signs or symptoms worsen or new symptoms develop. The patient agrees with the following Diagnosis and Treatment plan and the patient will be discharged home. Lab Data Labs: Lab Results 12/04/24 Range/Units 09:21 WBC 5.0 (4.0-11.0) 10^3/uL RBC 3.71 L (4.70-6.10) 10^6/uL Hgb 11.0 L (14.0-18.0) g/dL Hct 33.6 L (42.0-54.0) % MCV 90.6 (80.0-94.0) fL MCH 29.6 (25.9-34.0) pg MCHC 32.7 (29.9-35.2) g/dL RDW 16.8 H (11.0-15.0) % Plt Count 140 L (150-450) 10^3/uL MPV 10.1 (9.5-13.5) fL Seg Neuts % (Manual) 85.0 H (43.0-75.0) Band Neutrophils % 1.0 (0-5) % Lymphocytes % (Manual) 10.0 L (20.5-60.0) % Monocytes % (Manual) 4.0 (1.7-12.0) % Eosinophils % (Manual) 0.0 L (0.9-7.0) % Basophils % (Manual) 0.0 L (0.2-2.0) % Neutrophils # (Manual) 4.25 (1.4-6.5) 10^3/uL Band Neutrophils # 0.1 (0.0-0.3) 10^3/uL Lymphocytes # (Manual) 0.50 L (1.20-3.80) 10^3/uL Monocytes # (Manual) 0.20 L (0.30-0.80) 10^3/uL Eosinophils # (Manual) 0.00 (0.00-0.70) 10^3/uL Basophils # (Manual) 0.00 (0.00-0.10) 10^3/uL PT 16.3 H (9.0-11.6) sec INR 1.61 Sodium 139 (136-145) mmol/L Potassium 4.1 (3.5-5.1) mmol/L Chloride 104 (98-107) mmol/L Carbon Dioxide 24.9 (21.0-32.0) mmol/L Anion Gap 14.2 BUN 28.0 H (7.0-18.0) mg/dL Creatinine 0.80 (0.70-1.30) mg/dL Est GFR ( Amer) >60 (>=60 mL/min/1.73m^2) Est GFR (Non-Af Amer) >60 (>=60 mL/min/1.73m^2) BUN/Creatinine Ratio 35.0 Glucose 115 H (74-106) mg/dL Calcium 8.6 (8.5-10.1) mg/dL Magnesium 1.3 L (1.8-2.4) mg/dL Total Bilirubin 1.3 H (0.2-1.0) mg/dL AST 49 H (15-37) U/L ALT 41 (16-63) U/L Alkaline Phosphatase 95 (46-116) U/L Troponin I High Sens 23.6 (4.0-76.1) pg/mL Total Protein 6.5 (6.4-8.2) g/dL Albumin 3.3 L (3.4-5.0) g/dL Globulin 3.2 g/dL Albumin/Globulin Ratio 1.0 Discharge Plan Discharge Chief Complaint: Dizziness Clinical Impression: Dehydration, Hypomagnesemia, Sinusitis Patient Disposition: Home, Self-Care Time of Disposition Decision: 11:21 Condition: Good Prescriptions / Home Meds: New fluticasone propionate [Flonase Allergy Relief] 50 mcg/actuation spray,suspension 2 spray intranasal Q12H Qty: 16 0RF Rx Instructions: administer into each nostril No Action atorvastatin 40 mg tablet 40 mg PO DAILY cephalexin 500 mg capsule 500 mg PO Q12H warfarin 5 mg tablet 10 mg PO HS losartan 25 mg tablet 25 mg PO DAILY Print Language: Ugandan Instructions: Dehydration (DC), Rhinosinusitis (DC), Hypomagnesemia (ED) Referrals: MARÍA ANDERSON [Primary Care Provider, Internal Medicine] - 1 week Discharge Date/Time: 12/04/24 11:46
[2024-12-04] MEDS: MAGNESIUM SULFATE IN WATER 2 GM/50 ML PREMIX IV (10:23)
== END 2024-12-04 11:46 | disposition home or self-care (01) ==
PROVIDERS: Emergency Provider Emergency Medicine; PCP Internal Medicine
DX: E86.0 Dehydration (principal); E83.42 Hypomagnesemia; J32.9 Chronic sinusitis, unspecified; R06.02 Shortness of breath; I10 Essential (primary) hypertension; I48.91 Unspecified atrial fibrillation; E78.5 Hyperlipidemia, unspecified; Z86.73 Personal history of transient ischemic attack (TIA), and cerebral infarction without residual deficits
CPT/HCPCS: 36415; 70450; 71045; 80053; 83735; 84484; 85007; 85027; 85610; 93005; 96361; 96365; 99285; J3475

== ENCOUNTER 2024-12-13 02:35 | Outpatient (RCR) | payer MEDICARE, OTHER, SELFPAY | END 2025-01-12 16:37 | disposition home or self-care (01) | LOC: MM 02:35 | PROVIDERS: PCP Internal Medicine; Visit Provider Internal Medicine | DX: Z51.81 Encounter for therapeutic drug level monitoring (principal); Z79.01 Long term (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; I48.20 Chronic atrial fibrillation, unspecified | CPT/HCPCS: 85610; G0463 ==

== ENCOUNTER 2025-01-09 11:11 | Outpatient (OUT) | payer MEDICARE, OTHER, SELFPAY ==
--- OUTSIDE RECORDS SUMMARY | 2025-01-09 11:15 | XMS_ITS | Encounter Summary ---
Author Organization [facility] Address [address] [place] [address] Care Team Providers Care Social Security Assessor Name Role Phone Supa Reardon MD Primary Care Provider [phone] Trey Bowman DO Unavailable [phone] Monica Hook MD Unavailable [phone] Jorje Ramirez MD Unavailable [phone] Bonita Ovalles MD Unavailable [phone] Supa Reardon MD Unavailable [phone] Encounter Details Date Type Department Care Team (Late st Contact Info) Description 02/19/2024 Orders Only [facility] [address] [facility] [address] [place] [address] A, Unknown Practice [address] [place] [phone] Social History Tobacco Use Types Packs/Day Years Used Date Smoking Tobacco: Former Cigarettes Q uit: 06/15/2001 Smokeless Tobacco: Never Comments:Ex-heavy cigarettes smoker (20-30/day) Alcohol Use Standard Drinks/Week Comments Yes 14 (1 standard drink = 0.6 oz pure alcohol) .caffeine intake:Coffee, 3-4 cups per day. 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 Not on file Not on file documented as of this encounter Plan of Treatment Upcoming Encounters Date Type Department Care Team (Late st Contact Info) Description 01/16/2025 1:00 PM EDT Office Visit [facility] [place] [facility] [address] [place] [phone] documented as of this encounter Procedures Procedure Name Priority Date/Time Associated Diagnosis Comments CBC (INCLUDES DIFF/PLT) Routine 01/22/2024 11:11 AM EDT LIPID PANEL Routine 01/22/2024 11:11 AM EDT BASIC METABOLIC PANEL Routine 01/22/2024 11:[address] HEAD WO IV CONTRAST Routine 01/21/2024 11:17 AM EDT XR CHEST 1 VIEW Routine 01/21/2024 11:13 AM EDT documented in this encounter Results * Basic metabolic panel (01/22/2024 11:11 AM EDT) Blood Venous blood specimen / Unknown us Unknown Practice A LAB BLOOD ORDERABLES Final Re sult * Lipid panel (01/22/2024 11:11 AM EDT) Blood Venous blood specimen / Unknown us Unknown Practice A LAB BLOOD ORDERABLES Final Re sult * CBC and differential (01/22/2024 11:11 AM EDT) Blood Venous blood specimen / Unknown us Unknown Practice A LAB BLOOD ORDERABLES Final Re sult * CT head wo IV contrast (01/21/2024 11:17 AM EDT) Anatomical Region Laterality Modality Head, Neck Computed Tomogra phy us Unknown Practice A IMG CT PROCEDURES Final Resul t * XR chest 1 view (01/21/2024 11:13 AM EDT) Anatomical Region Laterality Modality Chest Radiographic Bonnie ging us Unknown Practice A IMG XR PROCEDURES Final Resul t documented in this encounter Visit Diagnoses Not on filedocumented in this encounter Care Teams Social Security Assessor Relationship Specialty Start Date End Date Supa Reardon MD [address] [place] [address] PCP - General Internal Medicine 11/04/22 Trey Bowman DO [address] [place] [address] PCP - ACO Reach 11/06/22 03/14/24 Supa Reardon MD [address] [place] [address] PCP - ACO Reach 03/15/24 Monica Hook MD [address] [place] [address] Referring Physician Dermatology 05/14/23 Jorje Ramirez MD [address] [place] [address] Referring Physician Urology 05/14/23 Bonita Ovalles MD [facility] [facility] [place] [address] Referring Physician Cardiology 05/14/23 documented as of this encounter
--- OUTSIDE RECORDS SUMMARY | 2025-01-09 11:15 | XMS_ITS | Encounter Summary ---
Author Organization [facility] Address [address] [place] [address] Care Team Providers Care Calciner Operator Name Role Phone Supa Reardon MD Primary Care Provider [phone] Monica Hook MD Unavailable Jorje Ramirez MD Unavailable [phone] Bonita Ovalles MD Unavailable Supa Reardon MD Unavailable [phone] Encounter Details Date Type Department Care Team (Late st Contact Info) Description 08/17/2024 Orders Only [facility] [address] [facility] [address] [place] [phone] Jorje Ramirez MD [address] [place] [address] Social History Tobacco Use Types Packs/Day Years Used Date Smoking Tobacco: Former Cigarettes Q uit: 06/15/2001 Smokeless Tobacco: Never Comments:Ex-heavy cigarettes smoker (20-30/day) Alcohol Use Standard Drinks/Week Comments Yes 14 (1 standard drink = 0.6 oz pure alcohol) .caffeine intake:Coffee, 3-4 cups per day. 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 Not on file documented as of this encounter Plan of Treatment Upcoming Encounters Date Type Department Care Team (Late st Contact Info) Description 01/16/2025 1:00 PM EDT Office Visit [facility] [address] [place] [phone] documented as of this encounter Procedures Procedure Name Priority Date/Time Associated Diagnosis Comments CYTOLOGY, URINE WITH REFLEX TO FISH Routine 08/08/2024 2:18 PM EST documented in this encounter Results * CYTOLOGY, URINE WITH REFLEX TO FISH (08/08/2024 2:18 PM EST) us Jorje Ramirez MD LAB BLOOD ORDERABLES Final Res ult documented in this encounter Visit Diagnoses Not on filedocumented in this encounter Additional Health Concerns Assessment Noted Time PHQ-9 Depression Total Score: 0 06/13/20 2:00 PM EST documented as of this encounter Care Teams Calciner Operator Relationship Specialty Start Date End Date Supa Reardon MD [address] [place] [address] PCP - General Internal Medicine 11/04/22 Supa Reardon MD [address] [place] [address] PCP - ACO Reach 03/15/24 Monica Hook MD [address] [place] [address] Referring Physician Dermatology 05/14/23 Jorje Ramirez MD [address] [place] [address] Referring Physician Urology 05/14/23 Bonita Ovalles MD [address] [place] [address] Referring Physician Cardiology 05/14/23 documented as of this encounter
--- OUTSIDE RECORDS SUMMARY | 2025-01-09 11:15 | XMS_ITS | Encounter Summary ---
Author Organization [facility] Address [address] [place] [address] Phone Care Team Providers Care Field Superintendent Name Role Phone Supa Reardon MD Primary Care Provider [phone] Encounter Details Date Type Department Care Team (Late Contact Info) Description 02/09/2024 Scanned Document [facility] [address] [place] [phone] Scanning, Generic Provider Social History Tobacco Use Types Packs/Day Years Used Date Smoking Tobacco: Former Cigarettes Smokeless Tobacco: Former Chew Alcohol Use Standard Drinks/Week Comments Yes 14 (1 standard drink = 0.6 oz pu re alcohol) Sex and Gender Information Value Date Recorded Sex Assigned at Not on file Legal Sex Male 9:02 AM EST Gender Identity Not on file Sexual Orientation Not on file documented as of this encounter Plan of Treatment Upcoming Encounters Date Type Department Care Team (Late Contact Info) Description 03/22/2025 2:30 PM EDT Appointment [address] [place] [phone] 07/26/2025 9:20 AM EST Office Visit [address] [place] [phone] Bonita Ovalles MD 3 [facility] 2[address] [place] [address] documented as of this encounter Procedures Procedure Name Priority Date/Time Associated Diagnosis Comments OUTSIDE LAB SCAN 02/09/2024 documented in this encounter Results * OUTSIDE LAB SCAN (02/09/2024) Narrative 02/09/2024 Ordered by an unspecified provider. us Generic Provider Scanning OUTSIDE SCAN Final Result documented in this encounter Visit Diagnoses Not on filedocumented in this encounter Additional Health Concerns Assessment Noted Time A fall risk assessment has been complete d for the patient 09/29/2023 9:13 AM EDT documented as of this encounter Care Teams Field Superintendent Relationship Specialty Start Date End Date Supa Reardon MD [address] [place] [address] PCP - General 02/24/23 documented as of this encounter
--- OUTSIDE RECORDS SUMMARY | 2025-01-09 11:15 | XMS_ITS | Encounter Summary ---
Author Organization [facility] Address [address] [place] [address] Care Team Providers Care Debrander Name Role Phone Supa Reardon MD Primary Care Provider [phone] Monica Hook MD Unavailable [phone] Jorje Ramirez MD Unavailable [phone] Bonita Ovalles MD Unavailable [phone] Supa Reardon MD Unavailable [phone] Reason for Visit * Reason Onset Date Comments Med Refill 01/03/2025 Encounter Details Date Type Department Care Team (Late st Contact Info) Description 01/03/2025 Refill [facility] [address] 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 Rx sent. documented in this encounter Plan of Treatment Upcoming Encounters Date Type Department Care Team (Late st Contact Info) Description 01/16/2025 1:00 PM EDT Office Visit [facility] [place] [facility] [address] [place] [address] documented as of this encounter Visit Diagnoses Diagnosis Gastroesophageal reflux disease without esophagitis Esophageal reflux documented in this encounter Additional Health Concerns Assessment Noted Time PHQ-9 Depression Total Score: 0 06/13/20 24 2:00 PM EST documented as of this encounter Care Teams Debrander Relationship Specialty Start Date End Date Supa Reardon MD [address] [place] [address] PCP - General Internal Medicine 11/04/22 Supa Reardon MD [address] [place] [address] PCP - ACO Reach 03/15/24 Monica Hook MD [address] [place] [address] Referring Physician Dermatology 05/14/23 Jorje Ramirez MD [address] [place] [address] Referring Physician Urology 05/14/23 Bonita Ovalles MD [address] [place] [address] Referring Physician Cardiology 05/14/23 documented as of this encounter
--- OUTSIDE RECORDS SUMMARY | 2025-01-09 11:15 | XMS_ITS | Clinical Summary ---
Author Organization [facility] Address [address] [place] [address] Care Team Providers Care Job Placement Counselor Name Role Phone Supa Reardon MD Primary Care Provider [phone] Monica Hook MD Unavailable [phone] Jorje Ramirez MD Unavailable [phone] Bonita Ovalles MD Unavailable [phone] Supa Reardon MD Unavailable [phone] Allergies Active Allergy Reactions Criticality Noted Date Comments Amoxicillin Swelling High 03/07/2014 Welts, facial swelling Welts, facial swelling Welts, facial swelling Bacitracin Low 01/19/2019 Neomycin Low 01/19/2019 Penicillins Other,Rash,Swelling, Angioedema Low 03/07/2014 Polymyxin B Low 01/19/2019 Wound Dressing Adhesive Rash Low 12/21/2023 Other Reaction(s): Rash Medications aspirin 81 MG EC tablet Take 81 mg by mouth in the morning. Active atorvastatin (Lipitor) 40 MG tabletIndicatio ns:Coronary artery disease involving [place] coronary artery of [place] heart without angina pectoris Take 1 tablet (40 mg) by mouth in the morning. 60 tablet 4 Active Multiple Vitamins-Minera ls (PRESERVISION AREDS 2 PO) Take by mouth Acti ve warfarin (Coumadin) 5 MG tabletIndicatio ns:Coronary artery disease involving [place] heart without angina pectoris, unspecified vessel or lesion type Take 2 tablets (10 mg) by mouth at bedtime 180 tablet 3 4 Active traMADol (Ultram) 50 MG tabletIndicatio ns:Lumbosacral spondylosis without myelopathy Take 1 tablet (50 mg) by mouth every 8 (eight) hours if needed for severe pain 60 tablet 4 Active albuterol HFA (Ventolin HFA) 90 mcg/act inhalerIndicati ons:Centrilobul ar emphysema (HCC) Inhale 2 puffs every 6 (six) hours if needed for wheezing or shortness of breath Do not use at same time as Tramadol 8 g 4 025 Active predniSONE (Deltasone) 20 MG tabletIndicatio ns:Acute non-recurrent pansinusitis,Wh eeze Take two tablets once a day for 5 days 10 tablet 5 Active Additional Information Patient not taking.Reported on 12/13/2024 losartan (Cozaar) 25 MG tabletIndicatio ns:Congestive heart failure, NYHA class 2, unspecified congestive heart failure type (HCC) Take 1 tablet (25 mg) by mouth Daily 30 tablet 3 5 Active Additional Information Patient taking differently: 12.5 mgOral Daily, Reported on 12/13/2024 Zeaxanthin powder Take 1 capsule by mouth in the morning. Active fluticasone (Flonase) 50 MCG/ACT nasal spray 2 sprays in the morning. 5 Active cephalexin (Keflex) 500 MG capsule Take 500 mg by mouth every 12 (twelve) hours 5 Active Magnesium Oxide, Elemental, 400 MG tabletIndicatio ns:Hypomagnesem ia Take 1 tablet by mouth Daily 90 tablet 2 5 Active sertraline (Zoloft) 25 MG tabletIndicatio ns:Mixed anxiety and depressive disorder Take 1 tablet (25 mg) by mouth Daily 30 tablet 2 5 025 Active pantoprazole (ProtoNix) 40 MG EC tabletIndicatio ns:Gastroesopha geal reflux disease without esophagitis Take 1 tablet (40 mg) by mouth in the morning. Take before meals. 90 tablet 3 5 Active pantoprazole (ProtoNix) 40 MG EC tabletIndicatio ns:Gastroesopha geal reflux disease without esophagitis Take 1 tablet (40 mg) by mouth in the morning. Take before meals. 90 tablet 3 4 025 Discontin ued(Reord er) Active Problems Problem Noted Date Diagnosed Date History of TIA (transient ischemic attack) 11/20 Nonrheumatic mitral valve regurgitation 04/27/20 History of kidney stones 11/11/2023 Prediabetes 05/14/2023 S/P aortic valve replacement 04/06/2023 History of gout 04/06/2023 Mixed hyperlipidemia 04/06/2023 Pulmonary hypertension 04/06/2023 Malignant neoplasm of prostate 01/28/2023 Lumbosacral spondylosis without myelopathy 01/28 Laryngopharyngeal reflux 01/28/2023 Diverticulosis, sigmoid 01/28/2023 Carcinoma in situ of bladder 01/28/2023 Coronary artery disease invo lving [place] coronary artery of [place] heart without angina pectoris 01/28/2023 Anemia 01/28/2023 Cervical spondylosis without myelopathy 12/06/19 CHF (congestive heart failure), NYHA class II Degeneration of lumbar intervertebral disc 12/05 Centrilobular emphysema 12/05/2022 PVD (peripheral vascular disease) 12/05/2022 Vertigo of central origin 10/31/2022 Balance disorder 10/31/2022 Gastroesophageal reflux disease without esophagi tis 06/10/2019 Venous insufficiency (chronic) (peripheral) 05/16 Chronic venous hypertension (idiopathic) with inflammation of left lower extremity 05/10/2019 Tobacco abuse 01/11/2019 Chronic atrial fibrillation 10/27/2014 Resolved Problems Problem Noted Date Diagnosed Date Resolved Date Type 2 diabetes mellitus wit h peripheral artery disease 01/11/2019 05/14/2023 Encounters Date Type Department Care Team Description 01/03/2025 Refill [facility] [address] [place] [address] Ewa Blum MA Gastroesophageal reflux disease without esophagitis 12/13/2024 2:00 PM EDT Office Visit [facility] [address] [place] [phone] Moises Gomez, SURVEILLANCE ANALYST Chronic systolic congestive heart failure, NYHA class 2 (HCC) (Primary Dx); Coronary artery disease involving [place] coronary artery of [place] heart without angina pectoris ; Mixed hyperlipidemia ; Chronic atrial fibrillation (HCC); Centrilobular emphysema (HCC); Prediabetes; History of bladder cancer; History of gout; Hypomagnesemia; Mixed anxiety and depressive disorder; Degeneration of intervertebral disc of lumbar region with discogenic back pain and lower extremity pain 12/13/2024 Travel 12/08/2024 Orders Only [facility] [address] [place] [address] UnallocatJorge figueroa MD 12/06/2024 Patient Outreach [facility] [address] [place] [address] Ewa Blum MA 11/20/2024 Telephone [facility] [address] [place] [address] Supa Reardon MD 11/17/2024 10:15 AM EDT Office Visit [facility] [address] [place] [address] Supa Reardon MD Sinus congestion (Primary Dx); Throat discomfort; Light headedness; Dysfunction of both eustachian tubes; Bruising; Epistaxis; Chronic systolic congestive heart failure, NYHA class 2 (HCC) 11/17/2024 Travel 10/31/2024 Patient Outreach [facility] [address] [place] [address] Ewa Blum MA 10/21/2024 Orders Only [facility] [address] [place] [address] UnallocatedJorge MD from Last 3 Months Immunizations Immunization Administration Dates Next Due Influenza, High Dose Seasonal, Preservative Free 05/14/2022 Influenza, High-dose Seasona l, Quadrivalent, Preservative Free 03/28/2021 Influenza, Seasonal, Quadrivalent, Adjuvanted Influenza, seasonal, intradermal, preservative f ree 05/18/2015,04/08/2013 Pneumococcal Conjugate PCV 13 05/18/2017 Pneumococcal Polysaccharide PPSV23 10/02/2010 Td (adult), 5 Lf tetanus tox oid, preservative free, adsorbed 11/01/2012 Tdap 12/20/2023 Family History Medical History Relation Name Comments Coronary artery disease Father Diabetes Maternal Grandmother Cancer Paternal Grandmother Melanoma Neg Hx Relation Name Status Comments Father Maternal Grandmother Paternal Grandmother Social History Tobacco Use Types Packs/Day Years [...] Date Job End 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 Not on file Last Filed Vital Signs Vital Sign Reading Time Taken Comments Blood Pressure 120/70 12/13/2024 2:42 PM EDT Pulse 80 12/13/2024 2:42 PM EDT Temperature 36.3 C (97.3 F) 04/06/2024 2:40 PM EDT Respiratory Rate 16 10/04/2024 1:05 PM EDT Oxygen Saturation 95% 12/13/2024 2:42 PM EDT Inhaled Oxygen Concentration - - Weight 72.6 kg (160 lb) 12/13/2024 2:42 PM EDT Height 175.3 cm (5' 9 ) 03/30/2024 1:36 PM EDT Body Mass Index 23.63 03/30/2024 1:36 PM EDT Plan of Treatment Upcoming Encounters Date Type Department Care Team (Late st Contact Info) Description 01/16/2025 1:00 PM EDT Office Visit [facility] [address] [place] [address] Health Maintenance Due Date Last Done Comments Diabetes: Retinopathy Screening 1945 Diabetes: Hemoglobin A1C 02/02/2024 024, 10/28/2022, 06/13/2019, Additional history exists Diabetes: Urine Protein Screening 11/01/2024 11/02/2023, 12/07/2020, 06/11/2018 Influenza Vaccine (#1) 2025 3, 05/14/2022, 03/28/2021, Additional history exists Pneumococcal Vaccine: 65+ Years Completed 7, 10/02/2010 Procedures Procedure Name Priority Date/Time Associated Diagnosis Comments PROTHROMBIN TIME-INR Routine 12/08/2024 2:30 PM EDT CBC WITH AUTO DIFFERENTIAL Routine 10/20/2024 10:46 AM EDT COMPREHENSIVE METABOLIC PANEL Routine 10/20/2024 10:46 AM EDT B12 VITAMIN AND FOLATE Routine 10:46 AM EDT FERRITIN Routine 10/20/2024 10:46 AM EDT MICROALBUMIN / CREATININE URINE RATIO Routine 11/02/2023 8:39 AM EDT Pre-diabetes HEMOGLOBIN A1C WITH EAG Routine 11/02/2023 8:39 AM EDT Pre-diabetes from Last 3 Months or Most Recently Relevant to Health Maintenance Results * Protime-INR (12/08/2024 2:30 PM EDT) Blood Venous blood specimen / Unknown us [facility] Provider Unallocated MD LAB BLOOD ORDERABLE S Final Result * B12 VITAMIN AND FOLATE (10/20/2024 10:46 AM EDT) us [facility] Provider Unallocated MD LAB BLOOD ORDERABLE S Final Result * CBC auto differential (10/20/2024 10:46 AM EDT) Blood Venous blood specimen / Unknown us [facility] Provider Unallocated MD LAB BLOOD ORDERABLE S Final Result * Ferritin (10/20/2024 10:46 AM EDT) Blood Venous blood specimen / Unknown us [facility] Provider Unallocated MD LAB BLOOD ORDERABLE S Final Result * Comprehensive metabolic panel (10/20/2024 10:46 AM EDT) Blood Venous blood specimen / Unknown us [facility] Provider Unallocated MD LAB BLOOD ORDERABLE S Final Result * Hemoglobin a1c with eag (11/02/2023 8:39 AM EDT) Hemoglobin A1C 5.6 <5.7 % of total Hgb [facility] Comment: For the purpose of screening for the presence of diabetes: <5.7% Consistent with the absence of diabetes 5.7-6.4% Consistent with increased risk for diabetes (prediabetes) > or =6.5% Consistent with diabetes This assay result is consistent with a decreased risk of diabetes. Currently, no consensus exists regarding use of hemoglobin A1c for diagnosis of diabetes in children. According to [place] Diabetes Association (ADA) guidelines, hemoglobin A1c <7.0% represents optimal control in non- diabetic patients. Different metrics may apply to specific patient populations. Standards of Medical Care in Diabetes(ADA). EAG (MG/DL) 114 mg/dL [facility] EAG (MMOL/L) 6.3 mmol/L [facility] Comment: This test was performed on the [employer] c503 platform. Effective 06/01/23, a change in test platforms from the Gray Can Technician to the [employer] c503 may have shifted HbA1c results compared to historical results. Based on laboratory validation testing conducted at [facility], the Grupo platform relative to the Gray platform had an average increase in HbA1c value of < or = 0.3%. This difference is within accepted variability established by the National Glycohemoglobin Standardization Program. Note that not all individuals will have had a shift in their results and direct comparisons between historical and current results for testing conducted on different platforms is not recommended. Blood Venous blood specimen / Unknown 11/02/2023 8:39 AM EDT 11/02/2023 8:39 AM EDT Narrative [facility] - 11/03/2023 10:12 AM EDT FASTING:YES FASTING: YES Resulting Agency Comment Performing Organization Information Site ID: QPT Name: [facility] Address: [address] [place] [address] Director: Jonh Cid MD [facility] LAB BLOOD ORDERABLES Final R esult Performing Organization Address [facility] [address] [facility] de Phone Number [facility] * Microalbumin / creatinine urine ratio (11/02/2023 8:39 AM EDT) CREATININE, RANDOM URINE 75 20 - 320 mg/dL [facility] ALBUMIN, URINE 0.7 See Note: mg/dL [facility] Comment: Reference Range: Reference Range Not established ALBUMIN/CREATININE RATIO, RANDOM URINE 9 <30 mg/g creat [facility] Comment: The ADA defines abnormalities in albumin excretion as follows: Albuminuria Category Result (mg/g creatinine) Normal to Mildly increased <30 Moderately increased 30-299 Severely increased > OR = 300 The ADA recommends that at least two of three specimens collected within a 3-6 month period be abnormal before considering a patient to be within a diagnostic category. Urine Urine specimen obtained by clean catch procedure / Unknown 11/02/2023 8:39 AM EDT 11/02/2023 8:39 AM EDT Narrative [facility] - 11/03/2023 10:12 AM EDT FASTING:YES FASTING: YES Resulting Agency Comment Performing Organization Information Site ID: QPT Name: [facility] Address: [address] [place] [address], [address] [place] [phone] Director: Jonh Cid MD [facility] URINE ORDERABLES Final R esult Performing Organization Address [facility] [address] [facility] Co de Phone Number [facility] from Last 3 Months or Most Recently Relevant to Health Maintenance Insurance [employer] Care Teams Job Placement Counselor Relationship Specialty Start Date End Date Supa Reardon MD [address] [place] [address] PCP - General Internal Medicine 11/04/22 Supa Reardon MD [address] [place] [address] PCP - ACO Reach 03/15/24 Monica Hook MD [address] [place] [address] Referring Physician Dermatology 05/14/23 Jorje Ramirez MD [address] [place] [address] Referring Physician Urology 05/14/23 Bonita Ovalles MD [address] [place] [address] Referring Physician Cardiology 05/14/23
--- OUTSIDE RECORDS SUMMARY | 2025-01-09 11:15 | XMS_ITS | Encounter Summary ---
Author Organization [facility] Address [address] [place] [address] Phone Care Team Providers Care Manager Zone Name Role Phone Supa Reardon MD Primary Care Provider [phone] Encounter Details Date Type Department Care Team (Late Contact Info) Description 08/03/2024 Scanned Document [facility] [address] [place] [address] Scanning, Generic Provider Social History Tobacco Use [...] Info) Description 03/22/2025 2:30 PM EDT Appointment [address] [place] [phone] 07/26/2025 9:20 AM EST Office Visit [address] [place] [phone] Bonita Ovalles MD 3 [facility] [address] [place] [address] documented as of this encounter Procedures Procedure Name Priority Date/Time Associated Diagnosis Comments OUTSIDE LAB SCAN 08/03/2024 documented in this encounter Results * OUTSIDE LAB SCAN (08/03/2024) Narrative 08/03/2024 Ordered by an unspecified provider. us Generic Provider Scanning OUTSIDE SCAN Final Result documented in this encounter Visit Diagnoses Not on filedocumented in this encounter Additional Health Concerns Assessment Noted Time A fall risk assessment has been complete d for the patient 04/18/2024 2:08 PM EST documented as of this encounter Care Teams Manager Zone Relationship Specialty Start Date End Date Supa Reardon MD [address] [place] [address] PCP - General 02/24/23 documented as of this encounter
--- OUTSIDE RECORDS SUMMARY | 2025-01-09 11:15 | XMS_ITS | Encounter Summary ---
Author Organization [facility] Address [address] [place] [address] Phone Care Team Providers Care Production Support Engineer Name Role Phone Supa Reardon MD Primary Care Provider [phone] Encounter Details Date Type Department Care Team (Late Contact Info) Description 03/08/2024 Scanned Document [facility] [address] [place] [address] Scanning, Generic Provider Social History Tobacco Use [...] Info) Description 03/22/2025 2:30 PM EDT Appointment [address] [place] [address] 07/26/2025 9:20 AM EST Office Visit [address] [place] [address] Bonita Ovalles MD 3 [facility] [address] [place] [address] documented as of this encounter Procedures Procedure Name Priority Date/Time Associated Diagnosis Comments OUTSIDE LAB SCAN 03/08/2024 documented in this encounter Results * OUTSIDE LAB SCAN (03/08/2024) Narrative 03/08/2024 Ordered by an unspecified provider. us Generic Provider Scanning OUTSIDE SCAN Final Result documented in this encounter Visit Diagnoses Not on filedocumented in this encounter Additional Health Concerns Assessment Noted Time A fall risk assessment has been complete d for the patient 09/29/2023 9:13 AM EDT documented as of this encounter Care Teams Production Support Engineer Relationship Specialty Start Date End Date Supa Reardon MD [address] [place] [phone] PCP - General 02/24/23 documented as of this encounter
--- OUTSIDE RECORDS SUMMARY | 2025-01-09 11:15 | XMS_ITS | Encounter Summary ---
Author Organization [facility] Address [address] [place] [address] Phone Care Team Providers Care Tubular Riveter Name Role Phone Supa Reardon MD Primary Care Provider [phone] Encounter Details Date Type Department Care Team (Late Contact Info) Description 10/20/2024 Scanned Document [facility] [address] [place] [address] Scanning, Generic Provider Social History [...] Info) Description 03/22/2025 2:30 PM EDT Appointment [address] [place] [phone] 07/26/2025 9:20 AM EST Office Visit [address] [place] [phone] Bonita Ovalles MD [address] [place] [address] [address] [place] [address] documented as of this encounter Procedures Procedure Name Priority Date/Time Associated Diagnosis Comments OUTSIDE LAB SCAN 10/20/2024 documented in this encounter Results * OUTSIDE LAB SCAN (10/20/2024) Narrative 10/20/2024 Ordered by an unspecified provider. us Generic Provider Scanning OUTSIDE SCAN Final Result documented in this encounter Visit Diagnoses Not on filedocumented in this encounter Additional Health Concerns Assessment Noted Time A fall risk assessment has been complete d for the patient 04/18/2024 2:08 PM EST documented as of this encounter Care Teams Tubular Riveter Relationship Specialty Start Date End Date Supa Reardon MD [address] [place] [phone] PCP - General 02/24/23 documented as of this encounter
--- OUTSIDE RECORDS SUMMARY | 2025-01-09 11:15 | XMS_ITS | Encounter Summary ---
Author Organization [facility] Address [address] [place] [address] Phone Care Team Providers Care Damascener Name Role Phone Supa Reardon MD Primary Care Provider [phone] Reason for Referral * Imaging (Routine) - Authorized Specialty Diagnoses / Procedures Referred By Kelvin t Referred To Contact Radiology Diagnoses Transient cerebral ischemic attack, unspecified Procedures MR brain wo IV contrast [facility] [address] [place] [address] Referral ID Status Reason Start Date Expiration Date Visits Requested Visits Authorized [id number] Authorized Perform Procedure 04/05/2025 1 1 Encounter Details Date Type Department Care Team (Latest Contact Info) Description 04/05/2024 Transcribe Orders [facility] [address] [place] [address] Tali Perla APRN-CNP [address], [address] [phone] Transient cerebral ischemic attack, unspecified (Primary Dx) Social History Tobacco Use Types Packs/Day Years [...] Care Team (Late st Contact Info) Description 03/22/2025 2:30 PM EDT Appointment [facility] [address] [facility] [address] [place] [address] 07/26/2025 9:20 AM EST Office Visit [facility] [address] [facility] [address] [place] [phone] Bonita Ovalles MD [address] [facility] [address] [place] [address] Scheduled Orders Name Type Priority Associated Diagnoses Orde r Schedule MR brain wo IV contrast Imaging Routine Transient cerebral ischemic attack, unspecified Expected: 04/05/2024, Expires: 04/05/2025 documented as of this encounter Visit Diagnoses Diagnosis Transient cerebral ischemic attack, unspecified- Primary documented in this encounter Additional Health Concerns Assessment Noted Time A fall risk assessment has been complete d for the patient 09/29/2023 9:13 AM EDT documented as of this encounter Care Teams Damascener Relationship Specialty Start Date End Date Supa Reardon MD [address] [place] [phone] PCP - General 02/24/23 documented as of this encounter
--- OUTSIDE RECORDS SUMMARY | 2025-01-09 11:15 | XMS_ITS | Encounter Summary ---
Author Organization [facility] Address [address] [facility] [place] [address] Care Team Providers Care Psychologist Engineering Name Role Phone Supa Reardon MD Primary Care Provider [phone] Monica Hook MD Unavailable [phone] Jorje Ramirez MD Unavailable [phone] Bonita Ovalles MD Unavailable [phone] Supa Reardon MD Unavailable [phone] Encounter Details Date Type Department Care Team (Late st Contact Info) Description 10/05/2024 Orders Only [facility] [place] [facility] [address] [facility] [address] [place] [address] Buck Carrillo MD [address] [place] [address] Social History Tobacco Use Types Packs/Day Years [...] Date 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 Not on file Not on file documented as of this encounter Plan of Treatment Upcoming Encounters Date Type Department Care Team (Late st Contact Info) Description 01/16/2025 1:00 PM EDT Office Visit [facility] [place] [facility] [address] [place] [address] documented as of this encounter Procedures Procedure Name Priority Date/Time Associated Diagnosis Comments CT LUMBAR SPINE WO IV CONTRAST Routine 10/04/2024 9:09 AM EDT documented in this encounter Results * CT lumbar spine wo IV contrast (10/04/2024 9:09 AM EDT) Anatomical Region Laterality Modality Spine, L-spine Computed Tomogra phy Buck Carrillo MD IMG CT PROCEDURES Final Result documented in this encounter Visit Diagnoses Not on filedocumented in this encounter Additional Health Concerns Assessment Noted Time PHQ-9 Depression Total Score: 0 06/13/20 24 2:00 PM EST documented as of this encounter Care Teams Psychologist Engineering Relationship Specialty Start Date End Date Supa Reardon MD [address] [place] [address] PCP - General Internal Medicine 11/04/22 Supa Reardon MD [address] [place] [address] PCP - ACO Reach 03/15/24 Monica Hook MD [address] [place] [address] Referring Physician Dermatology 05/14/23 Jorje Ramirez MD [address] [place] [address] Referring Physician Urology 05/14/23 Bonita Ovalles MD [address] [facility] [address] [place] [address] Referring Physician Cardiology 05/14/23 documented as of this encounter
--- OUTSIDE RECORDS SUMMARY | 2025-01-09 11:15 | XMS_ITS | Encounter Summary ---
Author Organization [facility] Address [address] [place] [facility] [place] [address] Care Team Providers Care Manager Enrollment Name Role Phone Supa Reardon MD Primary Care Provider [phone] Monica Hook MD Unavailable [phone] Jorje Ramirez MD Unavailable [phone] Bonita Ovalles MD Unavailable [phone] Supa Reardon MD Unavailable [phone] Encounter Details Date Type Department Care Team (Late st Contact Info) Description 10/21/2024 Orders Only [facility] [place] [facility] [address] 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 on file Not on file documented as of this encounter Plan of Treatment Upcoming Encounters Date Type Department Care Team (Late st Contact Info) Description 01/16/2025 1:00 PM EDT Office Visit [facility] [place] [facility] [address] [place] [address] documented as of this encounter Procedures Procedure Name Priority Date/Time Associated Diagnosis Comments B12 VITAMIN AND FOLATE Routine 10:46 AM EDT CBC WITH AUTO DIFFERENTIAL Routine 10/20/2024 10:46 AM EDT FERRITIN Routine 10/20/2024 10:46 AM EDT COMPREHENSIVE METABOLIC PANEL Routine 10/20/2024 10:46 AM EDT documented in this encounter Results * CBC auto differential (10/20/2024 10:46 AM [...] MD LAB BLOOD ORDERABLE S Final Result documented in this encounter Visit Diagnoses Not on filedocumented in this encounter Additional Health Concerns Assessment Noted Time PHQ-9 Depression Total Score: 0 06/13/20 24 2:00 PM EST documented as of this encounter Care Teams Manager Enrollment Relationship Specialty Start Date End Date Supa Reardon MD [address] [place] [address] PCP - General Internal Medicine 11/04/22 Supa Reardon MD [address] [place] [address] PCP - ACO Reach 03/15/24 Monica Hook MD [address] [place] [address] Referring Physician Dermatology 05/14/23 Jorje Ramirez MD [address] [facility] [place] [address] Referring Physician Urology 05/14/23 Bonita Ovalles MD [address] [facility] [address] [place] [address] Referring Physician Cardiology 05/14/23 documented as of this encounter
--- OUTSIDE RECORDS SUMMARY | 2025-01-09 11:15 | XMS_ITS | Encounter Summary ---
Author Organization [facility] Address [address] [place] [address] Phone Care Team Providers Care Transportation Museum Helper Name Role Phone Supa Reardon MD Primary Care Provider [phone] Encounter Details Date Type Department Care Team (Late Contact Info) Description 06/29/2024 Scanned Document [facility] [address] [place] [address] Scanning, Generic Provider Social History [...] Info) Description 03/22/2025 2:30 PM EDT Appointment [place] [address] [place] [phone] 07/26/2025 9:20 AM EST Office Visit [address] [place] [address] Bonita Ovalles MD [address] [facility] [address], [address] [place] [address] documented as of this encounter Procedures Procedure Name Priority Date/Time Associated Diagnosis Comments OUTSIDE LAB SCAN 06/29/2024 documented in this encounter Results * OUTSIDE LAB SCAN (06/29/2024) Narrative 06/29/2024 Ordered by an unspecified provider. us Generic Provider Scanning OUTSIDE SCAN Final Result documented in this encounter Visit Diagnoses Not on filedocumented in this encounter Additional Health Concerns Assessment Noted Time A fall risk assessment has been complete d for the patient 04/18/2024 2:08 PM EST documented as of this encounter Care Teams Transportation Museum Helper Relationship Specialty Start Date End Date Supa Reardon MD [address] [place] [address] PCP - General 02/24/23 documented as of this encounter
--- OUTSIDE RECORDS SUMMARY | 2025-01-09 11:15 | XMS_ITS | Encounter Summary ---
Author Organization [facility] Address [address] 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 [address], [facility] [address] [place] [phone] Transient cerebral ischemic attack, unspecified (Primary Dx) Social History Tobacco Use Types Packs/Day Years Used Date Smoking Tobacco: Never Assessed Sex and Gender Information Value Date Recorded Sex Assigned at Not on file Legal Sex Male 9:02 AM EST Gender Identity Not on file Sexual Orientation Not on file documented as of this encounter Plan of Treatment Upcoming Encounters Date Type Department Care Team (Late st Contact Info) Description 03/22/2025 2:30 PM EDT Appointment [address] [place] [address] 07/26/2025 9:20 AM EST Office Visit [address] [place] [address] Bonita Ovalles MD [address] [facility] [address] [place] [address] documented as of this encounter Visit Diagnoses Diagnosis Transient cerebral ischemic attack, unspecified- Primary documented in this encounter Care Teams Biomass Plant Manager Relationship Specialty Start Date End Date Supa Reardon MD [address] [place] [address] PCP - General 02/24/23 documented as of this encounter
--- OUTSIDE RECORDS SUMMARY | 2025-01-09 11:15 | XMS_ITS | Clinical Summary ---
Author Organization [facility] Address [address] [place] [address] Phone Care Team Providers Care Hydrologist Name Role Phone Supa Reardon MD Primary Care Provider [phone]- [phone] Allergies Active Allergy Reactions Criticality Noted Date Comments Bacitracin Unknown Low 01/19/2019 Beta-Blockers (Beta-Adrenergic Blocking Agts) Other 12/12/2024 hypotension Neomycin Unknown 01/19/2019 Penicillins Angioedema,Other,Hamzah h,Swelling,Unknown High 03/07/2014 Welts, facial swelling Welts, facial swelling Welts, facial swelling Welts, facial swelling Welts, facial swelling Welts, facial swelling Polymyxin B Other Low 01/19/2019 Medications pantoprazole (ProtoNix) 40 mg EC tablet Take 1 tablet (40 mg) by mouth. 020 Active traMADol (Ultram) 50 mg tablet Take 1-2 tablets (50-100 mg) by mouth every 6 hours if needed. 023 Active warfarin (Coumadin) 5 mg tablet Take 2 tablets (10 mg) by mouth. Take as directed by [facility] 018 Active aspirin 81 mg EC tablet Take 1 tablet (81 mg) by mouth once daily. Active atorvastatin (Lipitor) 40 mg tabletIndications:Coron luigi artery disease, unspecified vessel or lesion type, unspecified whether angina present, unspecified whether grayling or transplanted heart,Pure hypercholesterolemia Take 1 tablet (40 mg) by mouth once daily. 90 tablet 3 5 12:02 PM EDT 025 2025 Active cephalexin (Keflex) 500 mg capsule Take 1 capsule (500 mg) by mouth every 12 hours. Active fluticasone (Flonase) 50 mcg/actuation nasal spray Administer 2 sprays into each nostril once daily. Active dh-dzr-JN-vit M-huadgs-mlljypc (PreserVision AREDS 2 Plus MV) 200 mcg-15 mcg- 5 mg-1 mg capsule Take 1 capsule by mouth once daily. Active losartan (Cozaar) 25 mg tabletIndications:Conge stive heart failure, NYHA class 2, unspecified congestive heart failure type,Essential (primary) hypertension Take 0.5 tablets (12.5 mg) by mouth once daily. decrease 45 tablet 3 025 2025 Active enalapril (Vasotec) 2.5 mg tabletIndications:Conge stive heart failure, NYHA class 2, unspecified congestive heart failure type Take 1 tablet (2.5 mg) by mouth 2 times a day. 180 tablet 3 024 2024 Disconti nued(The rapy complete d) losartan (Cozaar) 25 mg tablet Take 1 tablet (25 mg) by mouth once daily. 025 2024 Disconti nued(Reo rder) Active Problems Problem Noted Date Diagnosed Date Beta-blockers contraindicated 12/12/2024 Mixed hyperlipidemia 12/12/2024 longterm (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 2024 Mitral regurgitation 12/12/2024 BMI 24.0-24.9, adult 09/29/2023 Former smoker 09/29/2023 Pulmonary hypertension (Multi) 04/06/2023 Status post transcatheter aortic valve replaceme nt 04/06/2023 Anemia 01/28/2023 CAD (coronary artery disease) 01/28/2023 Carcinoma in situ of bladder 01/28/2023 Diverticulosis, sigmoid 01/28/2023 Malignant neoplasm of prostate (Multi) Laryngopharyngeal reflux 01/28/2023 Lumbosacral spondylosis without myelopathy 01/28 Nonrheumatic aortic valve stenosis 01/28/2023 Cervical spondylosis without myelopathy 12/06/19 CHF (congestive heart failure), NYHA class II Degeneration of lumbar intervertebral disc 12/05 Emphysema of lung (Multi) 12/05/2022 Stage 2 chronic kidney disease 12/05/2022 PVD (peripheral vascular disease) 12/05/2022 Balance disorder 10/31/2022 Cervicalgia 10/31/2022 Vertigo of central origin 10/31/2022 Musculoskeletal pain 06/16/2019 Foot pain 06/16/2019 Gout 06/16/2019 Essential (primary) hypertension 06/16/2019 Gastroesophageal reflux disease without esophagi tis 06/10/2019 Venous insufficiency (chronic) (peripheral) 05/16 Chronic venous hypertension (idiopathic) with inflammation of left lower extremity 05/10/2019 Personal history of other malignant neoplasm of skin 01/11/2019 Type 2 diabetes mellitus without complication Chronic atrial fibrillation (Multi) 10/27/2014 Resolved Problems Problem Noted Date Diagnosed Date Resolved Date High risk medication use 04/18/2024 Permanent atrial fibrillation (Multi) 04/06/2023 12/12/2024 Presence of prosthetic heart valve 01/28/2023 12/12/2024 Pure hypercholesterolemia 12/05/2022 Hypertriglyceridemia 10/27/2014 025 Encounters Date Type Department Care Team Description 12/12/2024 3:50 PM EDT Office Visit [address] [phone] Shay Ovalles MD Congestive heart failure, NYHA class 2, unspecified congestive heart failure type; Coronary artery disease involving grayling coronary artery of grayling heart without angina pectoris; Chronic atrial fibrillation (Multi); longterm (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; Essential (primary) hypertension; Mixed hyperlipidemia; Nonrheumatic aortic valve stenosis; Status post transcatheter aortic valve replacement; Nonrheumatic mitral valve regurgitation; PVD (peripheral vascular disease); Stage 2 chronic kidney disease; Venous insufficiency (chronic) (peripheral); Pulmonary hypertension (Multi); Former smoker; BMI 24.0-24.9, adult 12/12/2024 Travel 12/01/2024 Scanned Document [facility] [address] [place] [address] Scanning, Generic Provider 10/20/2024 Scanned Document [facility] [address] [place] [address] Scanning, Generic Provider 10/17/[address] [phone] Chloe Nguyen RN Coronary artery disease, unspecified vessel or lesion type, unspecified whether angina present, unspecified whether grayling or transplanted heart; Pure hypercholesterolemia from Last 3 Months Social History Tobacco Use Types Packs/Day Years Used Date Smoking Tobacco: Former Cigarettes Smokeless Tobacco: Former Chew Tobacco Cessation:Counseling Given: Not Answered Alcohol Use Standard Drinks/Week Comments Yes 14 (1 standard drink = 0.6 oz pu re alcohol) Sex and Gender Information Value Date Recorded Sex Assigned at Not on file Legal Sex Male 9:02 AM EST Gender Identity Not on file Sexual Orientation Not on file Last Filed Vital Signs Vital Sign Reading Time Taken Comments Blood Pressure 98/46 12/12/2024 3:44 PM EDT Pulse 72 12/12/2024 3:44 PM EDT Temperature - - Respiratory Rate - - Oxygen Saturation - - Inhaled Oxygen Concentration - - Weight 72.6 kg (160 lb) 12/12/2024 3:44 PM EDT Height 172.7 cm (5' 8 ) 12/12/2024 3:44 PM EDT Body Mass Index 24.33 12/12/2024 3:44 PM EDT Plan of Treatment Upcoming Encounters Date Type Department Care Team (Late st Contact Info) Description 03/22/2025 2:30 PM EDT Appointment [address] [place] [phone] 07/26/2025 9:20 AM EST Office Visit [address] [phone] Shay Ovalles MD 703 [facility] 2, [address] [id number] Health Maintenance Due Date Last Done Comments Bone Density Scan 1935 Diabetes: Hemoglobin A1C 1936 Diabetes: Retinopathy Screening 1946 Zoster Vaccines (1 of 2) 1986 RSV High Risk: (Elderly (60+) or Population) (1 - 1-dose 75+ series) 2011 Creatinine Level 03/03/2021 03/03/2020, 02/24/2020 Potassium Level 03/03/2021 03/03/2020, 02/24/2020 COVID-19 Vaccine ( season) 2024 Diabetes: Urine Protein Screening 11/01/2024 11/02/2023 Lipid Panel 01/21/2025 01/22/2024 Influenza Vaccine (#1) 2025 , 05/14/2022, 03/28/2021, Additional history exists Echocardiogram 04/13/2025 04/13/2024, 03/16, 02/26/2022, Additional history exists Medicare Annual Wellness Visit (AWV) 06/14/2025 06/13/2024, 05/14/2023, 11/28/2021, Additional history exists DTaP/Tdap/Td Vaccines (2 - Td or Tdap) 12/19/2033 12/20/2023, 11/01/2012 Pneumococcal Vaccine Completed 05/18/2017, 10/03/19 11 Welcome to Medicare Visit Discontinued 2023, 05/14/2023, 11/28/2021, Additional history exists HIB Vaccines Aged Out No longer eligi ble based on patient's age to complete this topic HPV Vaccines Aged Out No longer eligi ble based on patient's age to complete this topic Hepatitis A Vaccines Aged Out No long er eligible based on patient's age to complete this topic Hepatitis B Vaccines Aged Out No long er eligible based on patient's age to complete this topic IPV Vaccines Aged Out No longer eligi ble based on patient's age to complete this topic Meningococcal Vaccine Aged Out No rui eugene eligible based on patient's age to complete this topic Rotavirus Vaccines Aged Out No longer eligible based on patient's age to complete this topic Procedures Procedure Name Priority Date/Time Associated Diagnosis Comments OUTSIDE LAB SCAN 12/01/2024 OUTSIDE LAB SCAN 10/20/2024 TRANSTHORACIC ECHO (TTE) COMPLETE Routine 04/13/2024 2:24 PM EDT 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 Narrative 12/01/2024 Ordered by an unspecified provider. us Generic Provider Scanning OUTSIDE SCAN Final Result * TRANSTHORACIC ECHO (TTE) COMPLETE (04/13/2024 2:24 PM EDT) AV mn grad 9.0 mmHg SYNGO AV pk nabeel 2.02 m/s SYNGO LV Biplane EF 30 % SYNGO LVOT diam 2.70 cm SYNGO LV EF 40 % SYNGO RVSP 41.9 mmHg SYNGO LVIDd 6.97 cm SYNGO Aortic Valve Area by Continuity of Peak Velocity 2.69 cm2 SYNGO AV pk grad 16.3 mmHg SYNGO Aortic Valve Area by Continuity of VTI 2.67 cm2 SYNGO LV A4C EF 35.9 SYNGO 04/13/2024 1:47 PM EDT Narrative SYNGO - 04/13/2024 4:44 PM EDT [address], [address] [place] [address] TRANSTHORACIC ECHOCARDIOGRAM REPORT Patient Name: FANI Caldwell Physician: [id number] Shay Ovalles MD, [facility] Study Date: 04/13/2024 Ordering Provider: [id number] SHAY OVALLES MRN/PID: [id number] Fellow: Nurse: Date of /Age: 12 1935 / 88 years Customer Assistant: Karly Lin RDCS, RVT Gender: M Additional Staff: Height: 175.26 cm Admit Date: Weight: 75.75 kg Admission Status: BSA / BMI: 1.91 m2 / 24.66 kg/m2 Department Location: [facility] Blood Pressure: 134 /76 mmHg Study Type: TRANSTHORACIC ECHO (TTE) COMPLETE Diagnosis/ICD: 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; 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, Atrial Fibrillation, CAD, CHF, COPD, Diabetes, HTN, Hyperlipidemia, / Systolic Murmur, Former Smoker, Pulmonary HTN, PVD, CKD-Stage II, Venous Insufficiency, Bladder and Prostate Cancer CPT Codes: Echo Complete w Full Doppler-[id number] Study Detail: The following Echo studies were [...] AoV Mean P.0 mmHg (1.7-11.5mmHg) LVOT Max Nabeel: 0.95 m/s (<=1.1m/s) AoV VTI: 35.80 cm (18-25cm) LVOT VTI: 16.70 cm LVOT Diameter: 2.70 cm (1.8-2.4cm) AoV Area, VTI: 2.67 cm2 (2.5-5.5cm2) AoV Area,Vmax: 2.69 cm2 (2.5-4.5cm2) AoV Dimensionless Index: 0.47 AORTIC INSUFFICIENCY: AI Vmax: 3.15 m/s AI Half-time: 489 msec AI Decel Rate: 245.67 cm/s2 TRICUSPID VALVE/RVSP: Normal Ranges: Peak TR Velocity: 3.12 m/s RV Syst Pressure: 42 mmHg (< 30mmHg) PULMONIC VALVE: Normal Ranges: PV Max Nabeel: 0.8 m/s (0.6-0.9m/s) PV Max P.6 mmHg PIEDV: 2.54 m/s PADP: 28.9 mmHg [id number] Shay Ovalles MD, [facility] Electronically signed on 04/13/2024 at 4:44:51 PM Final Procedure Note Shay Ovalles MD - 04/13/[address], [address] [place] [address] TRANSTHORACIC ECHOCARDIOGRAM REPORT Patient Name: FANI Caldwell Physician: [id number] Ovalles MD,[facility]INA Study Date: 04/13/2024 Ordering Provider: EDWIN OVALLES MRN/PID: [id number] Fellow: Nurse: Date of /Age: 12 1935 / 88 years Customer Assistant: Ngozi ANDRADE RVT Gender: M Additional Staff: Height: 175.26 cm Admit Date: Weight: 75.75 kg Admission Status: BSA / BMI: 1.91 m2 / 24.66 kg/m2 Department Location: [facility] Blood Pressure: 134 /76 mmHg Study Type: TRANSTHORACIC ECHO (TTE) COMPLETE Diagnosis/ICD: 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; 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, Atrial Fibrillation, CAD, CHF,COPD, Diabetes, HTN, Hyperlipidemia, 2/6 Systolic Murmur,Former Smoker, Pulmonary HTN, PVD, CKD-Stage II, VenousInsufficiency, Bladder and Prostate Cancer CPT Codes: Echo Complete w Full Doppler-[id number] Study Detail: The following Echo studies were performed: 2D, M-Mode,Doppler and color flow. PHYSICIAN INTERPRETATION: Left Ventricle: Left ventricular ejection fraction is moderatelydecreased, by visual estimate at 40%. There is global hypokinesis of theleft ventricle with minor regional variations. The left ventricular cavitysize is moderately dilated. Left ventricular diastolic filling was notassessed. Atrial fibrillation was noted throughout the study. Left Atrium: The left atrium is severely dilated. Right Ventricle: The right ventricle is normal in size. There is normalright ventricular global systolic function. Right Atrium: The right atrium is moderately to severely dilated. Aortic Valve: The aortic valve appears abnormal. The aortic valvedimensionless index is 0.47. There is trace aortic valve regurgitation.The peak instantaneous gradient of the aortic valve is 16.3 mmHg. The meangradient of the aortic valve is 9.0 mmHg. There is a TAVR in position withno stenosis or significant regurgitation. Mitral Valve: The mitral valve is moderately thickened. There is moderatemitral annular calcification. There is mild to moderate mitral valveregurgitation. Tricuspid Valve: The tricuspid valve is structurally normal. There is mildtricuspid regurgitation. Estimated RVSP 49 mmHg consistent with moderatepulmonary hypertension. Pulmonic Valve: The pulmonic valve is structurally normal. There is tracepulmonic valve regurgitation. Pericardium: No pericardial effusion noted. Aorta: The aortic root is normal. Pulmonary Artery: The Doppler estimated pulmonary artery diastolicpressure is 28.9 mmHg. Systemic Veins: The inferior vena cava appears normal in size. In comparison to the previous echocardiogram(s): When compared to studyfrom March 2023, no significant interval changes were seen. CONCLUSIONS: 1. Left ventricular ejection fraction is moderately decreased, by visualestimate at 40%. 2. There is global hypokinesis of the left ventricle with minor regionalvariations. 3. Left ventricular cavity size is moderately [...] Estimated RVSP 49 mmHg consistent with moderate pulmonaryhypertension. 12. There is a TAVR in position with no stenosis or significantregurgitation. 13. When compared to study from March 2023, no significant intervalchanges were seen. QUANTITATIVE DATA SUMMARY: 2D MEASUREMENTS: [...] AoV Mean P.0 mmHg (1.7-11.5mmHg) LVOT Max Nabeel: 0.95 m/s (<=1.1m/s) AoV VTI: 35.80 cm (18-25cm) LVOT VTI: 16.70 cm LVOT Diameter: 2.70 cm (1.8-2.4cm) AoV Area, VTI: 2.67 cm2 (2.5-5.5cm2) AoV Area,Vmax: 2.69 cm2 (2.5-4.5cm2) AoV Dimensionless Index: 0.47 AORTIC INSUFFICIENCY: AI Vmax: 3.15 m/s AI Half-time: 489 msec AI Decel Rate: 245.67 cm/s2 TRICUSPID VALVE/RVSP: Normal Ranges: Peak TR Velocity: 3.12 m/s RV Syst Pressure: 42 mmHg (< 30mmHg) PULMONIC VALVE: Normal Ranges: PV Max Nabeel: 0.8 m/s (0.6-0.9m/s) PV Max P.6 mmHg PIEDV: 2.54 m/s PADP: 28.9 mmHg [id number] Shay Ovalles MD, FACC Electronically signed on 04/13/2024 at 4:44:51 PM Final us Shay Ovalles MD CV ECHO PROCEDURES Final Res ult SYNGO * (ABNORMAL) Renal Function Panel (03/03/2020 12:09 AM EDT) Glucose 123(H) 74 - 99 mg/dL [facility] Sodium 140 136 - 145 mmol/L [facility] Potassium 3.5 3.5 - 5.3 mmol/L [facility] Chloride 110(H) 98 - 107 mmol/L [facility] Bicarbonate 21 21 - 32 mmol/L [facility] Anion Gap 13 10 - 20 mmol/L [facility] Urea Nitrogen 18 6 - 23 mg/dL [facility] Creatinine 0.70 0.50 - 1.30 mg/dL [facility] GLOMERULAR FILTRATION RATE-NON >60 >60 mL/min/1. 73m2 [facility] GLOMERULAR FILTRATION RATE- >60 >60 mL/min/1. 73m2 [facility] Comment: CALCULATIONS OF ESTIMATED GFR ARE PERFORMED USING THE MDRD STUDY EQUATION FOR THE IDMS-TRACEABLE CREATININE METHODS. CLIN CHEM 2007;53:766-72 Calcium 7.6(L) 8.6 - 10.6 mg/dL [facility] Phosphorus 2.5 2.5 - 4.9 mg/dL [facility] Comment: The performance characteristics of phosphorus testing in heparinized plasma have been validated by the individual laboratory site where testing is performed. Testing on heparinized plasma is not approved by the FDA; however, such approval is not necessary. Albumin 2.9(L) 3.4 - 5.0 g/dL [facility] 03/03/2020 12:0 9 AM EDT 03/03/2020 12:58 AM EDT us Juan Dangelo DENTAL SERVICES DIRECTOR-BRANCH RETAIL EXECUTIVE LAB BLOOD ORDERABLES F inal Result [facility] from Last 3 Months or Most Recently Relevant to Health Maintenance Insurance MEDICARE PART A AND B [facility] MEDICARE SUPPLEMENT MEDICARE PART A AND B [facility] MEDICARE SUPPLEMENT Care Teams Hydrologist Relationship Specialty Start Date End Date Supa Reardon MD [address] [place] [address] PCP - General 02/24/23
--- OUTSIDE RECORDS SUMMARY | 2025-01-09 11:15 | XMS_ITS | Encounter Summary ---
Author Organization [facility] Address [address] [place] [address] Phone Care Team Providers Care Mailroom Messenger Name Role Phone Supa Reardon MD Primary Care Provider +1- [phone] Encounter Details Date Type Department Care Team (Late Contact Info) Description 06/06/2023 Scanned Document [facility] [address] [place] [address] Scanning, Generic Provider Social History [...] Info) Description 03/22/2025 2:30 PM EDT Appointment [address] [place] [phone] 07/26/2025 9:20 AM EST Office Visit [address] [place] [address] Bonita Ovalles MD [address] [facility] [address] [place] [address] documented as of this encounter Visit Diagnoses Not on filedocumented in this encounter Care Teams Mailroom Messenger Relationship Specialty Start Date End Date Supa Reardon MD [address] [place] [phone] PCP - General 02/24/23 documented as of this encounter
--- OUTSIDE RECORDS SUMMARY | 2025-01-09 11:15 | XMS_ITS | Encounter Summary ---
Author Organization [facility] Address [address] [place] [address] Phone Care Team Providers Care Keno Clerk Name Role Phone Trey Bowman DO Primary Care Provider +1- [phone] Supa Reardon MD Primary Care Provider Encounter Details Date Type Department Care Team (Late st Contact Info) Description 03/20/2020 Orders Only [facility] [address] [place] [address] Conversion, Onbase Social History Tobacco Use Types Packs/Day Years [...] Info) Description 03/22/2025 2:30 PM EDT Appointment [address] [address] [place] [phone] 07/26/2025 9:20 AM EST Office Visit [address] [phone] Bonita Ovalles MD 703 [facility] [address], [address] [place], [place] [phone] Scheduled Orders Name Type Priority Associated Diagnoses Orde r Schedule OUTSIDE LAB SCAN Lab Ordered: 03/20/2020 documented as of this encounter Visit Diagnoses Not on filedocumented in this encounter Care Teams Keno Clerk Relationship Specialty Start Date End Date Trey Bowman DO [address] [place] [address] PCP - General 02/15/20 02/23/23 Supa Reardon MD [address] [place] [address] PCP - General 02/24/23 documented as of this encounter
--- OUTSIDE RECORDS SUMMARY | 2025-01-09 11:15 | XMS_ITS | Encounter Summary ---
Author Organization [facility] Address [address] [place] [address] Phone Care Team Providers Care Kindergarten Tutor Name Role Phone Supa Reardon MD Primary Care Provider +1- [phone] Encounter Details Date Type Department Care Team (Late Contact Info) Description 02/27/2024 Scanned Document [facility] [address] [place] [phone] Scanning, Generic Provider Social History Tobacco Use [...] Info) Description 03/22/2025 2:30 PM EDT Appointment [address] [place] [phone] 07/26/2025 9:20 AM EST Office Visit [address] [place] [phone] Bonita Ovalles MD [address] [place] [address] 2, [facility] [address] [place] [address] documented as of this encounter Visit Diagnoses Not on filedocumented in this encounter Additional Health Concerns Assessment Noted Time A fall risk assessment has been complete d for the patient 09/29/2023 9:13 AM EDT documented as of this encounter Care Teams Kindergarten Tutor Relationship Specialty Start Date End Date Supa Reardon MD [address] [place] [address] PCP - General 02/24/23 documented as of this encounter
--- OUTSIDE RECORDS SUMMARY | 2025-01-09 11:15 | XMS_ITS | Encounter Summary ---
Author Organization [facility] Address [address] [place] [address] Phone Care Team Providers Care Ramp Lead Name Role Phone Trey Bowman DO Primary Care Provider [phone]- [phone] Supa Reardon MD Primary Care Provider Encounter Details Date Type Department Care Team (Late st Contact Info) Description 04/04/2020 Orders Only [facility] [address] [place] [address] Conversion, Onbase Social History Tobacco Use Types [...] Info) Description 03/22/2025 2:30 PM EDT Appointment [address] [place] [phone] 07/26/2025 9:20 AM EST Office Visit [address] [phone] Bonita Ovalles MD 703 [facility] [address] [place] [address] Scheduled Orders Name Type Priority Associated Diagnoses Orde r Schedule OUTSIDE LAB SCAN Lab Ordered: 04/04/2020 documented as of this encounter Visit Diagnoses Not on filedocumented in this encounter Care Teams Ramp Lead Relationship Specialty Start Date End Date Tery Bowman DO [address] [place] [address] PCP - General 02/15/20 02/23/23 Supa Reardon MD [address] [place] [address] PCP - General 02/24/23 documented as of this encounter
--- OUTSIDE RECORDS SUMMARY | 2025-01-09 11:15 | XMS_ITS | Encounter Summary ---
Author Organization [facility] Address [address] [facility] [place] [address] Care Team Providers Care Minister Helper Name Role Phone Supa Reardon MD Primary Care Provider [phone] Monica Hook MD Unavailable [phone] Jorje Ramirez MD Unavailable [phone] Bonita Ovalles MD Unavailable [phone] Supa Reardon MD Unavailable [phone] Encounter Details Date Type Department Care Team (Late st Contact Info) Description 12/08/2024 Orders Only [facility] [place] [facility] [address] [facility] [address] [place] [phone] Unallocated, Noms Provider, [address] [place] [address] Social History Tobacco Use Types Packs/Day Years [...] Date 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 Not on file Not on file documented as of this encounter Plan of Treatment Upcoming Encounters Date Type Department Care Team (Late st Contact Info) Description 01/16/2025 1:00 PM EDT Office Visit [facility] [place] [facility] [address] [place] [address] documented as of this encounter Procedures Procedure Name Priority Date/Time Associated Diagnosis Comments PROTHROMBIN TIME-INR Routine 12/08/2024 2:30 PM EDT documented in this encounter Results * Protime-INR (12/08/2024 2:30 PM EDT) Blood Venous blood specimen / Unknown us Noms Provider Unallocated LAB BLOOD ORDERABLE S Final Result documented in this encounter Visit Diagnoses Not on filedocumented in this encounter Additional Health Concerns Assessment Noted Time PHQ-9 Depression Total Score: 0 06/13/20 2:00 PM EST documented as of this encounter Care Teams Minister Helper Relationship Specialty Start Date End Date Supa Reardon MD [address] [place] [address] PCP - General Internal Medicine 11/04/22 Supa Reardon MD [address] [place] [address] PCP - ACO Reach 03/15/24 Monica Hook MD [address] [place] [address] Referring Physician Dermatology 05/14/23 Jorje Ramirez MD [address] [place] [address] Referring Physician Urology 05/14/23 Bonita Ovalles MD [address] [place] [address] Referring Physician Cardiology 05/14/23 documented as of this encounter
--- OUTSIDE RECORDS SUMMARY | 2025-01-09 11:15 | XMS_ITS | Clinical Summary ---
Author Organization [facility] Address [address] [place] [address] Care Team Providers Care Plumbing Mechanic Name Role Phone Trey Bowman Primary Care Provider + Allergies Active Allergy Reactions Criticality Noted Date Comments Amoxicillin Swelling 03/07/2014 Medications gemfibrozil (LOPID) 600 mg tablet Take 600 mg by mouth twice daily before meals. Active pantoprazole (PROTONIX) 40 mg grps Take 40 mg by mouth once daily. Active meloxicam (MOBIC) 15 mg tablet Take 15 mg by mouth once daily. Active warfarin (COUMADIN) 5 mg tablet Take 1 tablet by mouth daily as directed. 7.5mg on Thursday, Thursday, Thursday, and Thursday. 10 mg on Thursday, and Thursday. 145 tablet 3 06/10/2018 Active Active Problems Problem Noted Date Diagnosed Date Chronic atrial fibrillation 10/27/2014 Hypertriglyceridemia 10/27/2014 Family History Medical History Relation Comments bipolar [Other] Daughter 2 Heart Father rheumatic fever Heart Mother Relation Status Comments Daughter 1 Alive Daughter 2 Father (Age 37) Mother Social History Tobacco Use Types Packs/Day Years Used Date Smoking Tobacco: Former Cigarettes 0 06/15/1958 - 06/15/2003 Pipe Cigars Smokeless Tobacco: Never Alcohol Use Standard Drinks/Week Comments Yes 0 (1 standard drink = 0.6 oz pure alcohol) beer or glass of wine daily with dinner Area Deprivation Index Answer Date Mendez rded National Score (1-100), lower number is lower ri sk Not on file 05/23/2020 State Score (1-10), lower number is lower risk N ot on file 05/23/2020 Data from: https://www.neighborhoodatlas.medicine.[facility].edu/. Last address used for calculation Not on file 05/23/2020 Sex and Gender Information Value Date Recorded Sex Assigned at Not on file Legal Sex Male 11:13 AM EDT Gender Identity Not on file Sexual Orientation Not on file Last Filed Vital Signs Vital Sign Reading Time Taken Comments Blood Pressure 139/90 11/17/2017 9:56 AM EDT Pulse 68 11/17/2017 9:56 AM EDT Temperature 36.8 C (98.3 F) 10/27/2014 9:12 AM EDT Respiratory Rate 14 11/17/2017 9:56 AM EDT Oxygen Saturation 94% 11/17/2017 9:56 AM EDT Inhaled Oxygen Concentration - - Weight 84.7 kg (186 lb 12.8 oz) 11/17/2017 9:56 AM EDT Height 175.3 cm (5' 9 ) 11/12/2016 9:48 AM EDT Body Mass Index 27.59 11/12/2016 9:48 AM EDT Plan of Treatment Health Maintenance Due Date Last Done Comments Anxiety Screening 1953 Depression Screening 1954 DTaP,Tdap,Td Vaccine (1 - Tdap) 1955 Diabetes Screening 1981 Pneumococcal Vaccine: 50+ (1 of 1 - PCV) 1986 Shingrix Vaccine (1 of 2) 1986 RSV Vaccine (1 - 1-dose 75+ series) 2011 Covid-19 Vaccine (1 - season) 2024 Advance Directive Discussion 06/15/2024 Influenza Vaccine (#1) 2025 Insurance MEDICARE [id number] Care Teams Plumbing Mechanic Relationship Specialty Start Date End Date Trey Bowman DO [address] [place] [address] PCP - General Internal Medicine 02/23/14
--- OUTSIDE RECORDS SUMMARY | 2025-01-09 11:15 | XMS_ITS | Clinical Summary ---
Author Organization [facility] Address [id number] [place] [address] Care Team Providers Care Customer Support Manager Name Role Phone KorinaLauren carney BENJI-CYANIDE POT TENDER Primary Care Provider [phone] Allergies Active Allergy Reactions Criticality Noted Date Comments Amoxicillin Swelling High 03/07/2014 Welts, facial swelling Welts, facial swelling Bacitracin 01/19/2019 Neomycin 01/19/2019 Polymyxin B 01/19/2019 Medications gabapentin (NEURONTIN) 100 mg capsule Take 100 mg by mouth 3 (three) times a day. 0 Active warfarin (COUMADIN) 5 mg tablet 1 to 1- 1/2 tablets per day as directed by physician 0 Active pantoprazole (PROTONIX) 40 mg EC tablet Take 40 mg by mouth daily. 0 Active gemfibroziL (LOPID) 600 mg tablet Take 600 mg by mouth daily. 0 Active acetaminophen (TYLENOL) 325 mg tablet Take 2 tablets by mouth nightly. Active meloxicam (MOBIC) 15 mg tablet Take 15 mg by mouth daily. Active meclizine HCl (MECLIZINE ORAL) Take by mouth See Admin Instructions. As directed Active Family History Medical History Relation Name Comments Heart disease Father Rheumatic fever Father Depression Mother Heart disease Mother Other Mother enlarged heart Relation Name Status Comments Father Mother Alive Social History Tobacco Use Types Packs/Day Years Used Date Smoking Tobacco: Former Cigarettes 1 45 0 06/15/1980 - 06/15/2003 Smokeless Tobacco: Never Alcohol Use Standard Drinks/Week Comments Never 0 (1 standard drink = 0.6 oz pur e alcohol) AUDIT-C Answer Date Recorded Q1: How often do you have a drink containing alc ohol? Never 04/05/2020 Q2: How many drinks containi ng alcohol do you have on a typical day when you are drinking? Not asked 04/05/2020 Q3: How often do you have six or more drinks on one occasion? Never 04/05/2020 Childcare Answer Date Recorded Childcare Unknown 04/03/2020 Employment Answer Date Recorded Employment Unknown 04/03/2020 Purpose - Life Answer Date Recorded Purpose and direction in life Unknown Sex and Gender Information Value Date Recorded Sex Assigned at Not on file Legal Sex Male 11:52 AM EDT Gender Identity Not on file Sexual Orientation Not on file Last Filed Vital Signs Vital Sign Reading Time Taken Comments Blood Pressure 140/84 04/05/2020 10:11 AM EDT Pulse 80 04/05/2020 10:11 AM EDT Temperature - - Respiratory Rate - - Oxygen Saturation - - Inhaled Oxygen Concentration - - Weight 84.6 kg (186 lb 9.6 oz) 04/05/2020 10:10 AM EDT Height 170.2 cm (5' 7 ) 04/05/2020 10:10 AM EDT Body Mass Index 29.23 04/05/2020 10:10 AM EDT Plan of Treatment Health Maintenance Due Date Last Done Comments Depression Screening 1948 Tobacco Screening 1948 DTaP,Tdap and Td Vaccines (1 - Tdap) 1955 Zoster (Shingles) Vaccine (1 of 2) 1986 Fall Risk Screening 2001 Influenza Vaccine 02/13/2025 03/03/2018, , 04/30/2017, Additional history exists Medical Devices Not on file Insurance [employer]ARE [employer] Care Teams Customer Support Manager Relationship Specialty Start Date End Date Lauren Hui APRN-KNEYA [address] [place] [address] PCP - General Family Medicine 04/03/20
--- OUTSIDE RECORDS SUMMARY | 2025-01-09 11:15 | XMS_ITS | Encounter Summary ---
Author Organization [facility] Address [address] [facility] [place] [address] Care Team Providers Care Ems Coordinator Name Role Phone Supa Reardon MD Primary Care Provider [phone] Trey Bowman DO Unavailable [phone] Monica Hook MD Unavailable [phone] Jorje Ramirez MD Unavailable [phone] Bonita Ovalles MD Unavailable [phone] Supa Reardon MD Unavailable [phone] Encounter Details Date Type Department Care Team (Late st Contact Info) Description 02/09/2024 Orders Only [facility] [address] 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 file Not on file documented as of this encounter Plan of Treatment Upcoming Encounters Date Type Department Care Team (Late st Contact Info) Description 01/16/2025 1:00 PM EDT Office Visit [facility] [place] [facility] [address] [place] [address] documented as of this encounter Procedures Procedure Name Priority Date/Time Associated Diagnosis Comments PROTHROMBIN TIME-INR Routine 02/09/2024 3:30 PM EDT documented in this encounter Results * Protime-INR (02/09/2024 3:30 PM EDT) Blood Venous blood specimen / Unknown us Unknown Practice A LAB BLOOD ORDERABLES Final Re sult documented in this encounter Visit Diagnoses Not on filedocumented in this encounter Care Teams Ems Coordinator Relationship Specialty Start Date End Date Supa Reardon MD [address] [place] [address] PCP - General Internal Medicine 11/04/22 Trey Bowman DO [address] [place] [address] PCP - ACO Reach 11/06/22 03/14/24 Supa Reardon MD [address] [place] [address] PCP - ACO Reach 03/15/24 Monica Hook MD [address] [place] [address] Referring Physician Dermatology 05/14/23 Jorje Ramirez MD [address] [place] [address] Referring Physician Urology 05/14/23 Bonita Ovalles MD [address] [facility] [address], [place] [address] Referring Physician Cardiology 05/14/23 documented as of this encounter
--- OUTSIDE RECORDS SUMMARY | 2025-01-09 11:15 | XMS_ITS | Encounter Summary ---
Author Organization [facility] Address [address] [place] [address] Phone Care Team Providers Care System Dispatcher Name Role Phone Supa Reardon MD Primary Care Provider [phone] Encounter Details Date Type Department Care Team (Late Contact Info) Description 06/02/2024 Scanned Document [facility] [address] [place] [address] Scanning, Generic Provider Social History [...] on file Sexual Orientation Not on file COVID-19 Exposure Response Date Recorded In the last 10 days, have yo u been in contact with someone who was confirmed or suspected to have Coronavirus/COVID-19? No / Unsure 05/18/2024 9:27 AM EST documented as of this encounter Plan of Treatment Upcoming Encounters Date Type Department Care Team (Late Contact Info) Description 03/22/2025 2:30 PM EDT Appointment [place] [address] [place] [address] 07/26/2025 9:20 AM EST Office Visit [address] [phone] Bonita Ovalles MD [address] [facility] 2, [address] [place] [address] documented as of this encounter Procedures Procedure Name Priority Date/Time Associated Diagnosis Comments OUTSIDE LAB SCAN 06/02/2024 documented in this encounter Results * OUTSIDE LAB SCAN (06/02/2024) Narrative 06/02/2024 Ordered by an unspecified provider. us Generic Provider Scanning OUTSIDE SCAN Final Result documented in this encounter Visit Diagnoses Not on filedocumented in this encounter Additional Health Concerns Assessment Noted Time A fall risk assessment has been complete d for the patient 04/18/2024 2:08 PM EST documented as of this encounter Care Teams System Dispatcher Relationship Specialty Start Date End Date Supa Reardon MD [address] [place] [address] PCP - General 02/24/23 documented as of this encounter
--- OUTSIDE RECORDS SUMMARY | 2025-01-09 11:15 | XMS_ITS | Encounter Summary ---
Author Organization [facility] Address [address] [place] [address] Care Team Providers Care Architectural Examiner Name Role Phone Supa Reardon MD Primary Care Provider [phone] Monica Hook MD Unavailable [phone] Jorje Ramirez MD Unavailable [phone] Shay Ovalles MD Unavailable [phone] Supa Reardon MD Unavailable [phone] Encounter Details Date Type Department Care Team (Late Contact Info) Description 04/13/2024 Clinisync Result Encounter [facility] External Department Unsolicited Provider, Generic External Data Social History Tobacco Use Types Packs/Day Years [...] Date 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 on file Not on file documented as of this encounter Plan of Treatment Upcoming Encounters Date Type Department Care Team ([facility] Contact Info) Description 01/16/2025 1:00 PM EDT Office Visit [facility] [address] [facility] [address] [place] [address] documented as of this encounter Procedures Procedure Name Priority Date/Time Associated Diagnosis Comments TRANSTHORACIC ECHO (TTE) COMPLETE 04/13/2024 1:47 PM EDT documented in this encounter Results * Transthoracic echo (TTE) complete (04/13/2024 1:47 PM EDT) Anatomical Region Laterality Modality Ultrasound 04/13/2024 1:47 PM EDT Narrative 04/13/2024 4:44 PM EDT [address], [address] [address] TRANSTHORACIC ECHOCARDIOGRAM REPORT Patient Name: FANI Caldwell Physician: [id number] Shay Ovalles MD, [facility] Study Date: 04/13/2024 Ordering Provider: [id number] SHAY OVALLES MRN/PID: [id number] Fellow: Nurse: Date of /Age: 12 1935 / 88 years Fire Pilot: Karly Lin RDCS, [facility] Gender: M Additional Staff: Height: 175.26 cm Admit Date: Weight: 75.75 kg Admission Status: BSA / BMI: 1.91 m2 / 24.66 kg/m2 Department Location: [facility] Blood Pressure: 134 /76 mmHg Study Type: TRANSTHORACIC ECHO (TTE) COMPLETE Diagnosis/ICD: 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; 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, Atrial Fibrillation, CAD, CHF, COPD, Diabetes, HTN, Hyperlipidemia, 2/ Systolic Murmur, Former Smoker, Pulmonary HTN, PVD, CKD-Stage II, Venous Insufficiency, Bladder and Prostate Cancer CPT Codes: Echo Complete w Full Doppler-[id number] Study Detail: The following Echo studies were [...] mmHg PIEDV: 2.54 m/s PADP: 28.9 mmHg [id number] Shay Ovalles MD, [facility] Electronically signed on 04/13/2024 at 4:44:51 PM Final Procedure Note Radiology, Radiologist, - 04/13/2024 [facility] [address] [place] [address], [address], [place] [address] TRANSTHORACIC ECHOCARDIOGRAM REPORT Patient Name: FANI Johnson MAGGI Reading Physician: Meggan Ovalles MD,[facility] Study Date: 04/13/2024 Ordering Provider: MEGGAN OVALLES MRN/PID: [id number] Fellow: Nurse: Date of /Age: 13 1935 / years Fire Pilot: Ngozi ANDRADE RVT Gender: M Additional Staff: Height: 175.26 cm Admit Date: Weight: 75.75 kg Admission Status: BSA / BMI: 1.91 m2 / 24.66 kg/m2 Department Location: [facility] Blood Pressure: 134 /76 mmHg Study Type: TRANSTHORACIC ECHO (TTE) COMPLETE Diagnosis/ICD: 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; 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, Atrial Fibrillation, CAD, CHF,COPD, Diabetes, HTN, Hyperlipidemia, 2/6 Systolic Murmur,Former Smoker, Pulmonary HTN, PVD, CKD-Stage II, VenousInsufficiency, Bladder and Prostate Cancer CPT Codes: Echo Complete w Full Doppler-[id number] Study Detail: The following Echo studies were [...] mmHg PIEDV: 2.54 m/s PADP: 28.9 mmHg [id number] Shay Ovalles MD, FACC Electronically signed on 04/13/2024 at 4:44:51 PM Final us Generic External Data Provider CV ECHO PROCEDURE S Final Result documented in this encounter Visit Diagnoses Not on filedocumented in this encounter Care Teams Architectural Examiner Relationship Specialty Start Date End Date Supa Reardon MD [address] [place] [address] PCP - General Internal Medicine 11/04/22 Supa Reardon MD [address] [place] [address] PCP - ACO Reach 03/15/24 Monica Hook MD [address] [place] [address] Referring Physician Dermatology 05/14/23 Jorje Ramirez MD [address] [facility] [address] Referring Physician Urology 05/14/23 Shay Ovalles MD [address] [facility] [place] [address] Referring Physician Cardiology 05/14/23 documented as of this encounter
--- OUTSIDE RECORDS SUMMARY | 2025-01-09 11:15 | XMS_ITS | Encounter Summary ---
Author Organization [facility] Address [address] [place] [address] Phone Care Team Providers Care Tobacco Sizer Name Role Phone Supa Reardon MD Primary Care Provider [phone] Encounter Details Date Type Department Care Team (Late Contact Info) Description 02/26/2024 Scanned Document [facility] [address] [place] [phone] Scanning, Generic Provider Social History Tobacco Use [...] Info) Description 03/22/2025 2:30 PM EDT Appointment [place] [address] [place] [phone] 07/26/2025 9:20 AM EST Office Visit [address] [place] [phone] Bonita Ovalles MD [address] [place] [address] 2, [facility] [address] [place] [address] documented as of this encounter Visit Diagnoses Not on filedocumented in this encounter Additional Health Concerns Assessment Noted Time A fall risk assessment has been complete d for the patient 09/29/2023 9:13 AM EDT documented as of this encounter Care Teams Tobacco Sizer Relationship Specialty Start Date End Date Supa Reardon MD [address] [place] [address] PCP - General 02/24/23 documented as of this encounter
--- OUTSIDE RECORDS SUMMARY | 2025-01-09 11:15 | XMS_ITS | Encounter Summary ---
Author Organization [facility] Address [address] [place] [address] Care Team Providers Care Senior Economist Name Role Phone Supa Reardon MD Primary Care Provider [phone] Monica Hook MD Unavailable [phone] Jorje Ramirez MD Unavailable [phone] Bonita Ovalles MD Unavailable [phone] Supa Reardon MD Unavailable [phone] Encounter Details Date Type Department Care Team (Late st Contact Info) Description 04/08/2024 Abstract [facility] [address] [place] [address] Erasmo Bonner, DPM FACFAS [address] [place] [address] Social History Tobacco Use Types Packs/Day Years [...] Date 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 on file Not on file documented as of this encounter Plan of Treatment Upcoming Encounters Date Type Department Care Team (Late st Contact Info) Description 01/16/2025 1:00 PM EDT Office Visit [facility] [place] [facility] [address] [place] [address] documented as of this encounter Visit Diagnoses Not on filedocumented in this encounter Care Teams Senior Economist Relationship Specialty Start Date End Date Supa Reardon MD [address] [place] [address] PCP - General Internal Medicine 11/04/22 Supa Reardon MD [address] [place] [address] PCP - ACO Reach 03/15/24 Monica Hook MD [address] [place] [address] Referring Physician Dermatology 05/14/23 Jorje Ramirez MD [address] [place] [address] Referring Physician Urology 05/14/23 Bonita Ovalles MD [address] [facility] [address] [place] [address] Referring Physician Cardiology 05/14/23 documented as of this encounter
--- OUTSIDE RECORDS SUMMARY | 2025-01-09 11:15 | XMS_ITS | Encounter Summary ---
Author Organization [facility] Address [address] [place] [address] Phone Care Team Providers Care Instructional Leader Name Role Phone Supa Reardon MD Primary Care Provider [phone] Encounter Details Date Type Department Care Team (Late Contact Info) Description 04/05/2024 Scanned Document [facility] [address] [place] [phone] Scanning, Generic Provider Social History Tobacco Use [...] Info) Description 03/22/2025 2:30 PM EDT Appointment [place] [address] [place] [phone] 07/26/2025 9:20 AM EST Office Visit [address] [place] [address] Bonita Ovalles MD [address] [facility] [address] [place] [address] documented as of this encounter Procedures Procedure Name Priority Date/Time Associated Diagnosis Comments OUTSIDE LAB SCAN 04/05/2024 documented in this encounter Results * OUTSIDE LAB SCAN (04/05/2024) Narrative 04/05/2024 Ordered by an unspecified provider. us Generic Provider Scanning OUTSIDE SCAN Final Result documented in this encounter Visit Diagnoses Not on filedocumented in this encounter Additional Health Concerns Assessment Noted Time A fall risk assessment has been complete d for the patient 09/29/2023 9:13 AM EDT documented as of this encounter Care Teams Instructional Leader Relationship Specialty Start Date End Date Supa Reardon MD [address] [place] [phone] PCP - General 02/24/23 documented as of this encounter
--- OUTSIDE RECORDS SUMMARY | 2025-01-09 11:15 | XMS_ITS | Encounter Summary ---
Author Organization [facility] Address [id number] [address] [place] [address] Care Team Providers Care Agriculture Department Chair Name Role Phone KorinaLauren carney BENJI-OIL DERRICK OPERATOR Primary Care Provider [phone] Encounter Details Date Type Department Care Team (Late st Contact Info) Description 04/26/2020 Telephone [facility] [address] [place] [phone] Ángela Maldonado RN Social History Tobacco Use Types Packs/Day Years [...] Employment Answer Date Recorded Employment Unknown 04/03/2020 Sex and Gender Information Value Date Recorded Sex Assigned at Not on file Legal Sex Male 11:52 AM EDT Gender Identity Not on file Sexual Orientation Not on file COVID-19 Exposure Response Date Recorded In the last month, have you been in contact with someone who was confirmed or suspected to have Coronavirus / COVID-19? No / Unsure 04/04/2020 9:56 AM EDT documented as of this encounter Plan of Treatment Not on file documented as of this encounter Visit Diagnoses Not on filedocumented in this encounter Care Teams Agriculture Department Chair Relationship Specialty Start Date End Date Lauren Hui APRN-KENYA [address] [place] [address] PCP - General Family Medicine 04/03/20 documented as of this encounter
--- OUTSIDE RECORDS SUMMARY | 2025-01-09 11:15 | XMS_ITS | Encounter Summary ---
Author Organization [facility] Address [address] [place] [address] Phone Care Team Providers Care Legal Services Professional Name Role Phone Supa Reardon MD Primary Care Provider [phone]- [phone] Encounter Details Date Type Department Care Team (Late Contact Info) Description 12/01/2024 Scanned Document [facility] [address] [place] [address] Scanning, Generic Provider Social History [...] Info) Description 03/22/2025 2:30 PM EDT Appointment [address] [place] [address] 07/26/2025 9:20 AM EST Office Visit [address] [place] [address] Bonita Ovalles MD 3 [facility] [address], [address] [place] [address] documented as of this encounter Procedures Procedure Name Priority Date/Time Associated Diagnosis Comments OUTSIDE LAB SCAN 12/01/2024 documented in this encounter Results * OUTSIDE LAB SCAN (12/01/2024) Narrative 12/01/2024 Ordered by an unspecified provider. us Generic Provider Scanning OUTSIDE SCAN Final Result documented in this encounter Visit Diagnoses Not on filedocumented in this encounter Additional Health Concerns Assessment Noted Time A fall risk assessment has been complete d for the patient 04/18/2024 2:08 PM EST documented as of this encounter Care Teams Legal Services Professional Relationship Specialty Start Date End Date Supa Reardon MD [address] [place] [address] PCP - General 02/24/23 documented as of this encounter
--- OUTSIDE RECORDS SUMMARY | 2025-01-09 11:15 | XMS_ITS | Encounter Summary ---
Author Organization [facility] Address [address] [place] [address] Phone Care Team Providers Care Cutting Inspector Name Role Phone Supa Reardon MD Primary Care Provider [phone] Encounter Details Date Type Department Care Team (Late Contact Info) Description 06/15/[address] [facility] [address] [place] [address] Scanning, Generic Provider Social History [...] Info) Description 03/22/2025 2:30 PM EDT Appointment [address] [place] [address] 07/26/2025 9:20 AM EST Office Visit [address] [phone] Bonita Ovalels MD 703 [facility] [address] [place] [address] documented as of this encounter Visit Diagnoses Not on filedocumented in this encounter Additional Health Concerns Assessment Noted Time A fall risk assessment has been complete d for the patient 04/18/2024 2:08 PM EST documented as of this encounter Care Teams Cutting Inspector Relationship Specialty Start Date End Date Supa Reardon MD [address] [place] [address] PCP - General 02/24/23 documented as of this encounter
--- OUTSIDE RECORDS SUMMARY | 2025-01-09 11:15 | XMS_ITS | Encounter Summary ---
Author Organization [facility] Address [address] [place] [address] Phone Care Team Providers Care Division Manager Name Role Phone Supa Reardon MD Primary Care Provider [phone]- [phone] Encounter Details Date Type Department Care Team (Late Contact Info) Description 06/05/2023 Scanned Document [facility] [address] [place] [address] Scanning, Generic Provider Social History [...] Info) Description 03/22/2025 2:30 PM EDT Appointment [address] [place] [address] 07/26/2025 9:20 AM EST Office Visit [address] [place] [address] Bonita Ovalles MD 703 [facility] [address], [address] [place] [address] documented as of this encounter Visit Diagnoses Not on filedocumented in this encounter Care Teams Division Manager Relationship Specialty Start Date End Date Supa Reardon MD [address] [place] [address] PCP - General 02/24/23 documented as of this encounter
--- OUTSIDE RECORDS SUMMARY | 2025-01-09 11:15 | XMS_ITS | Encounter Summary ---
Author Organization [facility] Address [address] [place] [address] Phone Care Team Providers Care Composite Layup Worker Name Role Phone Supa Reardon MD Primary Care Provider [phone]- [phone] Encounter Details Date Type Department Care Team (Late Contact Info) Description 09/27/2024 Scanned Document [facility] [address] [place] [address] Scanning, Generic Provider Social History [...] Info) Description 03/22/2025 2:30 PM EDT Appointment [address] [place] [address] 07/26/2025 9:20 AM EST Office Visit [address] [place] [address] Bonita Ovalles MD [address] [place] [address] [address] [place] [address] documented as of this encounter Procedures Procedure Name Priority Date/Time Associated Diagnosis Comments OUTSIDE LAB SCAN 09/27/2024 documented in this encounter Results * OUTSIDE LAB SCAN (09/27/2024) Narrative 09/27/2024 Ordered by an unspecified provider. us Generic Provider Scanning OUTSIDE SCAN Final Result documented in this encounter Visit Diagnoses Not on filedocumented in this encounter Additional Health Concerns Assessment Noted Time A fall risk assessment has been complete d for the patient 04/18/2024 2:08 PM EST documented as of this encounter Care Teams Composite Layup Worker Relationship Specialty Start Date End Date Supa Reardon MD [address] [place] [address] PCP - General 02/24/23 documented as of this encounter
--- OUTSIDE RECORDS SUMMARY | 2025-01-09 11:16 | XMS_ITS | Encounter Summary ---
Author Organization [facility] Address [address] [place] [address] Phone Care Team Providers Care Lead Tank Mechanic Name Role Phone Trey Bowman DO Primary Care Provider [phone]- [phone] Supa Reardon MD Primary Care Provider Encounter Details Date Type Department Care Team (Late Contact Info) Description 12/27/2020 Orders Only [facility] [address] [place] [address] Conversion, Onbase Social History Tobacco Use Types [...] 03/22/2025 2:30 PM EDT Appointment [address] [place] [address] 07/26/2025 9:20 AM EST Office Visit [address] [phone] Bonita Ovalles MD 703 [facility] [address], [address] [place], [place] [phone] Scheduled Orders Name Type Priority Associated Diagnoses Orde r Schedule OUTSIDE LAB SCAN Lab Ordered: 12/27/2020 documented as of this encounter Visit Diagnoses Not on filedocumented in this encounter Care Teams Lead Tank Mechanic Relationship Specialty Start Date End Date Trey Bowman DO [address] [place] [address] PCP - General 02/15/20 02/23/23 Supa Reardon MD [address] [place] [address] PCP - General 02/24/23 documented as of this encounter
--- OUTSIDE RECORDS SUMMARY | 2025-01-09 11:16 | XMS_ITS | Encounter Summary ---
Author Organization [facility] Address [address] [place] [address] Phone Care Team Providers Care Corporate Compliance Manager Name Role Phone Trey Bowman DO Primary Care Provider [phone]- [phone] Supa Reardon MD Primary Care Provider Encounter Details Date Type Department Care Team (Late Contact Info) Description 07/17/2020 Orders Only [facility] [address] [place] [address] Conversion, Onbase Social History Tobacco Use Types [...] Info) Description 03/22/2025 2:30 PM EDT Appointment [address] [place] [address] 07/26/2025 9:20 AM EST Office Visit [address] [phone] Bonita Ovalles MD 703 [facility] [address], [address] [place] [address] Scheduled Orders Name Type Priority Associated Diagnoses Orde r Schedule OUTSIDE LAB SCAN Lab Ordered: 07/17/2020 documented as of this encounter Visit Diagnoses Not on filedocumented in this encounter Care Teams Corporate Compliance Manager Relationship Specialty Start Date End Date Trey Bowman DO [address] [place] [address] PCP - General 02/15/20 02/23/23 Supa Reardon MD [address] [place] [address] PCP - General 02/24/23 documented as of this encounter
--- OUTSIDE RECORDS SUMMARY | 2025-01-09 11:16 | XMS_ITS | Encounter Summary ---
Author Organization [facility] Address [address] [place] [address] Phone Care Team Providers Care Nurse Specialist Name Role Phone Trey Bowman DO Primary Care Provider [phone] Supa Reardon MD Primary Care Provider Encounter Details Date Type Department Care Team (Late Contact Info) Description 12/04/2020 Orders Only [facility] [address] [place] [address] Conversion, Onbase Social History Tobacco Use Types [...] Info) Description 03/22/2025 2:30 PM EDT Appointment [address] [place] [address] 07/26/2025 9:20 AM EST Office Visit [address] [phone] Bonita Ovalles MD 703 [facility] [address] [place], [place] [address] Scheduled Orders Name Type Priority Associated Diagnoses Orde r Schedule OUTSIDE LAB SCAN Lab Ordered: 12/04/2020 documented as of this encounter Visit Diagnoses Not on filedocumented in this encounter Care Teams Nurse Specialist Relationship Specialty Start Date End Date Trey Bowman DO [address] [place] [address] PCP - General 02/15/20 02/23/23 Supa Reardon MD [address] [place] [address] PCP - General 02/24/23 documented as of this encounter
--- OUTSIDE RECORDS SUMMARY | 2025-01-09 11:16 | XMS_ITS | Encounter Summary ---
Author Organization [facility] Address [address] [place] [address] Phone Care Team Providers Care Sulfonation Equipment Operator Name Role Phone Trey Bowman DO Primary Care Provider [phone] Supa Reardon MD Primary Care Provider Encounter Details Date Type Department Care Team (Late st Contact Info) Description 04/30/2021 Orders Only [facility] [address] [place] [address] Conversion, Onbase Social History Tobacco Use Types [...] 03/22/2025 2:30 PM EDT Appointment [address] [place] [address] 07/26/2025 9:20 AM EST Office Visit [address] [phone] Bonita Ovalles MD 703 [facility] [address] [place], [place] [phone] Scheduled Orders Name Type Priority Associated Diagnoses Orde r Schedule OUTSIDE LAB SCAN Lab Ordered: 04/30/2021 documented as of this encounter Visit Diagnoses Not on filedocumented in this encounter Care Teams Sulfonation Equipment Operator Relationship Specialty Start Date End Date Trey Bowman DO [address] [place] [address] PCP - General 02/15/20 02/23/23 Supa Reardon MD [address] [place] [address] PCP - General 02/24/23 documented as of this encounter
--- OUTSIDE RECORDS SUMMARY | 2025-01-09 11:16 | XMS_ITS | Encounter Summary ---
Author Organization [facility] Address [address] [place] [address] Care Team Providers Care Gem Expert Name Role Phone Supa Reardon MD Primary Care Provider [phone] Trey Bowman DO Unavailable [phone] Monica Hook MD Unavailable [phone] Jorje Ramirez MD Unavailable [phone] Bonita Ovalles MD Unavailable [phone] Supa Reardon MD Unavailable [phone] Encounter Details Date Type Department Care Team (Late st Contact Info) Description 12/12/2022 Abstract [facility] [place] [facility] [address] [facility] [address] [place] [address] Isai Pino, PT [address] [facility] [address] [place] [address] Social History Tobacco Use Types Packs/Day Years Used Date Smoking Tobacco: Former Cigarettes Q uit: 06/15/2001 Tobacco Cessation:Counseling Given: Not Answered Comments:Ex-heavy cigarettes smoker (20-30/day) Alcohol Use Standard Drinks/Week Comments Yes 0 (1 standard drink = 0.6 oz pure alcohol) 1-2 drinks, 4 or more times a week.caffeine intake: 2-3 cups per day. Sex and Gender Information Value Date Recorded [...] [address] [place] [address] documented as of this encounter Visit Diagnoses Not on filedocumented in this encounter Care Teams Gem Expert Relationship Specialty Start Date End Date Supa Reardon MD [address] [place] [address] PCP - General Internal Medicine 11/04/22 Trey Bowman DO [address] [place] [address] PCP - ACO Reach 11/06/22 03/14/24 Supa Reardon MD [address] [place] [address] PCP - ACO Reach 03/15/24 Monica Hook MD [address] [place] [address] Referring Physician Dermatology 05/14/23 Jorje Ramirez MD [address] [place] [address] Referring Physician Urology 05/14/23 Bonita Ovalles MD [address] [place] [address] Referring Physician Cardiology 05/14/23 documented as of this encounter
--- OUTSIDE RECORDS SUMMARY | 2025-01-09 11:16 | XMS_ITS | Encounter Summary ---
Author Organization [facility] Address [address] [place] [address] Phone Care Team Providers Care Envelope Adjuster Name Role Phone Trey Bowman DO Primary Care Provider [phone]- [phone] Supa Reardon MD Primary Care Provider Encounter Details Date Type Department Care Team (Late Contact Info) Description 05/20/2022 Orders Only [facility] [address] [place] [address] Conversion, Onbase Social History Tobacco Use Types [...] Info) Description 03/22/2025 2:30 PM EDT Appointment [address] [place] [address] 07/26/2025 9:20 AM EST Office Visit [address] [phone] Bonita Ovalles MD 703 [facility] [address], [address] [place], [place] [phone] Scheduled Orders Name Type Priority Associated Diagnoses Orde r Schedule OUTSIDE LAB SCAN Lab Ordered: 05/20/2022 documented as of this encounter Visit Diagnoses Not on filedocumented in this encounter Care Teams Envelope Adjuster Relationship Specialty Start Date End Date Trey Bowman DO [address] [place] [address] PCP - General 02/15/20 02/23/23 Supa Reardon MD [address] [place] [address] PCP - General 02/24/23 documented as of this encounter
--- OUTSIDE RECORDS SUMMARY | 2025-01-09 11:16 | XMS_ITS | Encounter Summary ---
Author Organization [facility] Address [address] [place] [address] Phone Care Team Providers Care Hiv Nurse Name Role Phone Trey Bowman DO Primary Care Provider [phone]- [phone] Supa Reardon MD Primary Care Provider Encounter Details Date Type Department Care Team (Late st Contact Info) Description 08/27/2022 Orders Only [facility] [address] [place] [address] Conversion, Onbase Social History Tobacco Use Types [...] Info) Description 03/22/2025 2:30 PM EDT Appointment [address] [place] [address] 07/26/2025 9:20 AM EST Office Visit [address] [phone] Bonita Ovalles MD 703 [facility] [address] [place], [place] [address] Scheduled Orders Name Type Priority Associated Diagnoses Orde r Schedule OUTSIDE LAB SCAN Lab Ordered: 08/27/2022 documented as of this encounter Visit Diagnoses Not on filedocumented in this encounter Care Teams Hiv Nurse Relationship Specialty Start Date End Date Trey Bowman DO [address] [place] [address] PCP - General 02/15/20 02/23/23 Supa Reardon MD [address] [place] [address] PCP - General 02/24/23 documented as of this encounter
--- OUTSIDE RECORDS SUMMARY | 2025-01-09 11:16 | XMS_ITS | Encounter Summary ---
Author Organization [facility] Address [address] [facility] [place] [address] Care Team Providers Care Equal Opportunity Assistant Name Role Phone Supa Reardon MD Primary Care Provider [phone] Trey Bowman DO Unavailable [phone] Monica Hook MD Unavailable [phone] Jorje Ramirez MD Unavailable [phone] Bonita Ovalles MD Unavailable [phone] Supa Reardon MD Unavailable [phone] Encounter Details Date Type Department Care Team (Late st Contact Info) Description 06/18/2023 Orders Only [facility] [address] [facility] 230 [place] [address] A, Unknown Practice [address] [place] [phone] Social History Tobacco Use Types Packs/Day Years [...] Date 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 Not on file documented as of this encounter Plan of Treatment Upcoming Encounters Date Type Department Care Team (Late st Contact Info) Description 01/16/2025 1:00 PM EDT Office Visit [facility] [place] [facility] [address] [place] [address] documented as of this encounter Procedures Procedure Name Priority Date/Time Associated Diagnosis Comments SCANNED LABS Routine 06/17/2023 9:33 AM EST documented in this encounter Results * SCANNED LABS (06/17/2023 9:33 AM EST) us Unknown Practice A LAB CHG PERFORMABLES Final Re sult documented in this encounter Visit Diagnoses Not on filedocumented in this encounter Care Teams Equal Opportunity Assistant Relationship Specialty Start Date End Date Supa Reardon MD [address] [place] [address] PCP - General Internal Medicine 11/04/22 Trey Bowman DO [address] [place] [address] PCP - ACO Reach 11/06/22 03/14/24 Supa Reardon MD [address] [place] [address] PCP - ACO Reach 03/15/24 Monica Hook MD [address] [place] [address] Referring Physician Dermatology 05/14/23 Jorje Ramirez MD [address] [place] [address] Referring Physician Urology 05/14/23 Bonita Ovalles MD [address] [facility] [address], [address] [place] [address] Referring Physician Cardiology 05/14/23 documented as of this encounter
--- OUTSIDE RECORDS SUMMARY | 2025-01-09 11:16 | XMS_ITS | Encounter Summary ---
Author Organization [facility] Address [address] [place] [address] Phone Care Team Providers Care Manager Cath Lab Name Role Phone Trey Bowman DO Primary Care Provider [phone] Supa Reardon MD Primary Care Provider Encounter Details Date Type Department Care Team (Late st Contact Info) Description 02/28/2020 Orders Only [facility] [address] [place] [address] Conversion, Onbase Social History Tobacco Use Types [...] Info) Description 03/22/2025 2:30 PM EDT Appointment [address] [place] [address] 07/26/2025 9:20 AM EST Office Visit [address] [phone] Bonita Ovalles MD 703 [facility] [address], [address] [place], [place] [address] Scheduled Orders Name Type Priority Associated Diagnoses Orde r Schedule OUTSIDE LAB SCAN Lab Ordered: 02/28/2020 OUTSIDE LAB SCAN Lab Ordered: 02/28/2020 documented as of this encounter Visit Diagnoses Not on filedocumented in this encounter Care Teams Manager Cath Lab Relationship Specialty Start Date End Date Trey Bowman DO [address] [place] [address] PCP - General 02/15/20 02/23/23 Supa Reardon MD [address] [place] [address] PCP - General 02/24/23 documented as of this encounter
--- OUTSIDE RECORDS SUMMARY | 2025-01-09 11:16 | XMS_ITS | Encounter Summary ---
Author Organization [facility] Address [address] [facility] [place] [address] Care Team Providers Care Supervisor Communications And Signals Name Role Phone Supa Reardon MD Primary Care Provider [phone] Trey Bowman DO Unavailable [phone] Monica Hook MD Unavailable [phone] Jorje Ramirez MD Unavailable [phone] Bonita Ovalles MD Unavailable [phone] Supa Reardon MD Unavailable [phone] Encounter Details Date Type Department Care Team (Late Contact Info) Description 04/01/2023 Orders Only [facility] [place] [facility] [address] [facility] 230 [place] [address] A, Unknown Practice [address] [place], [place] [phone] Social History Tobacco Use Types Packs/Day Years Used Date Smoking Tobacco: Former Cigarettes Q uit: 06/15/2001 Smokeless Tobacco: Never Comments:Ex-heavy cigarettes smoker (20-30/day) Alcohol Use Standard Drinks/Week Comments Yes 14 (1 standard drink = 0.6 oz pure alcohol) .caffeine intake:Coffee, 3-4 cups per day. 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 Not on file documented as of this encounter Plan of Treatment Upcoming Encounters Date Type Department Care Team (Late Contact Info) Description 01/16/2025 1:00 PM EDT Office Visit [facility] [place] [facility] [address] [place] [address] documented as of this encounter Procedures Procedure Name Priority Date/Time Associated Diagnosis Comments POCT PROTIME-INR, FINGERSTICK Routine 04/01/2023 3:19 PM EDT documented in this encounter Results * POCT Protime-INR, fingerstick docked device (04/01/2023 3:19 PM EDT) Blood Venous blood specimen / Unknown us Unknown Practice A POINT OF CARE TEST ENTER/EDIT ORDERABLES Final Result documented in this encounter Visit Diagnoses Not on filedocumented in this encounter Care Teams Supervisor Communications And Signals Relationship Specialty Start Date End Date Supa Reardon MD [address] [place] [address] PCP - General Internal Medicine 11/04/22 Trey Bowman DO [address] [place] [address] PCP - ACO Reach 11/06/22 03/14/24 Supa Reardon MD [address] [place] [address] PCP - ACO Reach 03/15/24 Monica Hook MD [address] [place] [address] Referring Physician Dermatology 05/14/23 Jorje Ramirez MD [address] [place] [address] Referring Physician Urology 05/14/23 Bonita Ovalles MD 703 [facility] 2, [place] [address] Referring Physician Cardiology 05/14/23 documented as of this encounter
--- OUTSIDE RECORDS SUMMARY | 2025-01-09 11:16 | XMS_ITS | Encounter Summary ---
Author Organization [facility] Address [address] [place] [address] Phone Care Team Providers Care Soda Flaker Name Role Phone Trey Bowman DO Primary Care Provider [phone] Supa Reardon MD Primary Care Provider Encounter Details Date Type Department Care Team (Late st Contact Info) Description 01/14/2020 Orders Only [facility] [address] [place] [address] Conversion, Onbase Social History Tobacco Use Types [...] Info) Description 03/22/2025 2:30 PM EDT Appointment [address] [place] [address] 07/26/2025 9:20 AM EST Office Visit [address] [phone] Bonita Ovalles MD 703 [facility] [address] [place], [place] [phone] Scheduled Orders Name Type Priority Associated Diagnoses Orde r Schedule OUTSIDE LAB SCAN Lab Ordered: 01/14/2020 documented as of this encounter Visit Diagnoses Not on filedocumented in this encounter Care Teams Soda Flaker Relationship Specialty Start Date End Date Trey Bowman DO [address] [place] [address] PCP - General 02/15/20 02/23/23 Supa Reardon MD [address] [place] [address] PCP - General 02/24/23 documented as of this encounter
--- OUTSIDE RECORDS SUMMARY | 2025-01-09 11:16 | XMS_ITS | Encounter Summary ---
Author Organization [facility] Address [address] [place] [address] Phone Care Team Providers Care Jailer/Training Officer Name Role Phone Trey Bowman DO Primary Care Provider [phone] Supa Reardon MD Primary Care Provider Encounter Details Date Type Department Care Team (Late Contact Info) Description 01/19/2023 Orders Only [facility] [address] [place] [address] Conversion, Onbase Social History Tobacco Use Types [...] 03/22/2025 2:30 PM EDT Appointment [place] [address] [place] [phone] 07/26/2025 9:20 AM EST Office Visit [address] [phone] Bonita Ovalles MD [address]03 [facility] [address], [address] [place], [place] [phone] Scheduled Orders Name Type Priority Associated Diagnoses Orde r Schedule OUTSIDE LAB SCAN Lab Ordered: 01/19/2023 documented as of this encounter Visit Diagnoses Not on filedocumented in this encounter Care Teams Jailer/Training Officer Relationship Specialty Start Date End Date Trey Bowman DO [address] [place] [address] PCP - General 02/15/20 02/23/23 Supa Reardon MD [address] [place] [address] PCP - General 02/24/23 documented as of this encounter
--- OUTSIDE RECORDS SUMMARY | 2025-01-09 11:16 | XMS_ITS | Encounter Summary ---
Author Organization [facility] Address [address] [place] [address] Phone Care Team Providers Care Aoc Operations Intelligence Chief Name Role Phone Trey Bowman DO Primary Care Provider [phone] Supa Reardon MD Primary Care Provider Encounter Details Date Type Department Care Team (Late Contact Info) Description 11/15/2020 Orders Only [facility] [address] [place] [address] Conversion, Onbase Social History Tobacco Use Types [...] Info) Description 03/22/2025 2:30 PM EDT Appointment [place] [address] [place] [address] 07/26/2025 9:20 AM EST Office Visit [address] [phone] Bonita Ovalles MD 703 [facility] [address], [address] [place], [place] [phone] Scheduled Orders Name Type Priority Associated Diagnoses Orde r Schedule OUTSIDE LAB SCAN Lab Ordered: 11/15/2020 documented as of this encounter Visit Diagnoses Not on filedocumented in this encounter Care Teams Aoc Operations Intelligence Chief Relationship Specialty Start Date End Date Trey Bowman DO [address] [place] [address] PCP - General 02/15/20 02/23/23 Supa Reardon MD [address] [place] [address] PCP - General 02/24/23 documented as of this encounter
--- OUTSIDE RECORDS SUMMARY | 2025-01-09 11:16 | XMS_ITS | Encounter Summary ---
Author Organization [facility] Address [address] [facility] [place] [address] Care Team Providers Care Inspector Returned Materials Name Role Phone Supa Reardon MD Primary Care Provider [phone] Trey Bowman DO Unavailable [phone] Monica Hook MD Unavailable [phone] Jorje Ramirez MD Unavailable [phone] Bonita Ovalles MD Unavailable [phone] Supa Reardon MD Unavailable [phone] Encounter Details Date Type Department Care Team (Late Contact Info) Description 04/02/2023 Orders Only [facility] [address] [facility] [address] [place] [address] A, Unknown Practice [address] [place] [phone] Social History Tobacco Use Types Packs/Day Years [...] 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 on file Not on file documented as of this encounter Plan of Treatment Upcoming Encounters Date Type Department Care Team (Late Contact Info) Description 01/16/2025 1:00 PM EDT Office Visit [facility] [place] [facility] [address] [place] [address] documented as of this encounter Procedures Procedure Name Priority Date/Time Associated Diagnosis Comments SCANNED LABS Routine 04/02/2023 3:52 PM EDT SCANNED LABS Routine 04/02/2023 2:21 PM EDT documented in this encounter Results * SCANNED LABS (04/02/2023 3:52 PM EDT) us Unknown Practice A LAB CHG PERFORMABLES Final Re sult * SCANNED LABS (04/02/2023 2:21 PM EDT) us Unknown Practice A LAB CHG PERFORMABLES Final Re sult documented in this encounter Visit Diagnoses Not on filedocumented in this encounter Care Teams Inspector Returned Materials Relationship Specialty Start Date End Date Supa Reardon MD [address] [place] [address] PCP - General Internal Medicine 11/04/22 Trey Bowman DO [address] [place] [address] PCP - ACO Reach 11/06/22 03/14/24 Supa Reardon MD [address] [place] [address] PCP - ACO Reach 03/15/24 Monica Hook MD [address] [place] [address] Referring Physician Dermatology 05/14/23 Jorje Ramirez MD [address] [address] Referring Physician Urology 05/14/23 Bonita Ovalles MD 703 [facility] 2, [place] [phone] Referring Physician Cardiology 05/14/23 documented as of this encounter
--- OUTSIDE RECORDS SUMMARY | 2025-01-09 11:16 | XMS_ITS | Encounter Summary ---
Author Organization [facility] Address [address] [facility] [place] [address] Care Team Providers Care Neon Sign Mechanic Name Role Phone Supa Reardon MD Primary Care Provider [phone] Trey Bowman DO Unavailable [phone] Monica Hook MD Unavailable [phone] Jorje Ramirez MD Unavailable [phone] Bonita Ovalles MD Unavailable [phone] Supa Reardon MD Unavailable [phone] Encounter Details Date Type Department Care Team (Late Contact Info) Description 04/22/2023 Orders Only [facility] [place] [facility] [address] [facility] 230 [place] [address] A, Unknown Practice [address] [place], [place] [phone] Social History Tobacco Use Types Packs/Day Years [...] 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 Not on file documented as of this encounter Plan of Treatment Upcoming Encounters Date Type Department Care Team (Late Contact Info) Description 01/16/2025 1:00 PM EDT Office Visit [facility] [place] [facility] [address] [place] [address] documented as of this encounter Procedures Procedure Name Priority Date/Time Associated Diagnosis Comments SCANNED LABS Routine 04/22/2023 10:33 AM EST documented in this encounter Results * SCANNED LABS (04/22/2023 10:33 AM EST) us Unknown Practice A LAB CHG PERFORMABLES Final Re sult documented in this encounter Visit Diagnoses Not on filedocumented in this encounter Care Teams Neon Sign Mechanic Relationship Specialty Start Date End Date Supa Reardon MD [address] [place] [address] PCP - General Internal Medicine 11/04/22 Trey Bowman DO [address] [place] [address] PCP - ACO Reach 11/06/22 03/14/24 Supa Reardon MD [address] [place] [address] PCP - ACO Reach 03/15/24 Monica Hook MD [address] [place] [address] Referring Physician Dermatology 05/14/23 Jorje Ramirez MD [address] [place] [address] Referring Physician Urology 05/14/23 Bonita Ovalles MD [address] [place] [address] Referring Physician Cardiology 05/14/23 documented as of this encounter
--- OUTSIDE RECORDS SUMMARY | 2025-01-09 11:16 | XMS_ITS | Encounter Summary ---
Author Organization [facility] Address [address] [place] [address] Phone Care Team Providers Care Real Estate Leasing Agent Name Role Phone Supa Reardon MD Primary Care Provider [phone] Encounter Details Date Type Department Care Team (Late Contact Info) Description 03/13/2023 Scanned Document [facility] [address] [place] [address] Conversion, Onbase Social History Tobacco Use Types [...] Info) Description 03/22/2025 2:30 PM EDT Appointment [address] [place] [phone] 07/26/2025 9:20 AM EST Office Visit [address] [place] [address] Bonita Ovalles MD 703 [facility] [address], [address] [place], [place] [phone] documented as of this encounter Visit Diagnoses Not on filedocumented in this encounter Care Teams Real Estate Leasing Agent Relationship Specialty Start Date End Date Supa Reardon MD [address] [place] [address] PCP - General 02/24/23 documented as of this encounter
--- OUTSIDE RECORDS SUMMARY | 2025-01-09 11:16 | XMS_ITS | Encounter Summary ---
Author Organization [facility] Address [address] [place] [address] Phone Care Team Providers Care Wall Washer Name Role Phone Trey Bowman DO Primary Care Provider [phone] Supa Reardon MD Primary Care Provider [phone] Encounter Details Date Type Department Care Team (Late st Contact Info) Description 06/25/2020 Orders Only [facility] [address] [place] [address] Conversion, Onbase Social History Tobacco Use Types [...] Info) Description 03/22/2025 2:30 PM EDT Appointment [place] [address] [place] [phone] 07/26/2025 9:20 AM EST Office Visit [address] [phone] Bonita Ovalles MD 703 [facility] 2, [address] [place] [address] Scheduled Orders Name Type Priority Associated Diagnoses Orde r Schedule OUTSIDE LAB SCAN Lab Ordered: 06/25/2020 documented as of this encounter Visit Diagnoses Not on filedocumented in this encounter Care Teams Wall Washer Relationship Specialty Start Date End Date Trey Bowman DO [address] [place] [address] PCP - General 02/15/20 02/23/23 Supa Reardon MD [address] [place] [address] PCP - General 02/24/23 documented as of this encounter
--- OUTSIDE RECORDS SUMMARY | 2025-01-09 11:16 | XMS_ITS | Encounter Summary ---
Author Organization [facility] Address [address] [facility] [place] [address] Care Team Providers Care Swimming Pool Attendant Name Role Phone Supa Reardon MD Primary Care Provider [phone] Trey Bowman DO Unavailable [phone] Monica Hook MD Unavailable [phone] Jorje Ramirez MD Unavailable [phone] Bonita Ovalles MD Unavailable [phone] Supa Reardon MD Unavailable [phone] Encounter Details Date Type Department Care Team (Late st Contact Info) Description 06/17/2023 Orders Only [facility] [place] [facility] [address] [facility] 230 [place] [address] A, Unknown Practice [address] [place] [phone] Social History Tobacco Use Types Packs/Day Years [...] 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 Not on file documented as of this encounter Plan of Treatment Upcoming Encounters Date Type Department Care Team (Late st Contact Info) Description 01/16/2025 1:00 PM EDT Office Visit [facility] [place] [facility] [address] [place] [address] documented as of this encounter Procedures Procedure Name Priority Date/Time Associated Diagnosis Comments SCANNED LABS Routine 06/06/2023 8:22 AM EST TRANSTHORACIC ECHO (TTE) COMPLETE Routine 06/05/2023 8:[address] CTA NECK Routine 06/04/2023 8:17 AM EST documented in this encounter Results * SCANNED LABS (06/06/2023 8:22 AM EST) us Unknown Practice A LAB CHG PERFORMABLES Final Re sult * Transthoracic echo (TTE) complete (06/05/2023 8:18 AM EST) Anatomical Region Laterality Modality Heart Ultrasound us Unknown Practice A CV ECHO PROCEDURES Final Resu lt * CT CTA NECK (06/04/2023 8:17 AM EST) Anatomical Region Laterality Modality Radiographic Bonnie ging us Unknown Practice A IMG XR PROCEDURES Final Resul t documented in this encounter Visit Diagnoses Not on filedocumented in this encounter Care Teams Swimming Pool Attendant Relationship Specialty Start Date End Date Supa Reardon MD [address] [place] [address] PCP - General Internal Medicine 11/04/22 Trey Bowman DO [address] [place] [address] PCP - ACO Reach 11/06/22 03/14/24 Supa Reardon MD [address] [place] [address] PCP - ACO Reach 03/15/24 Monica Hook MD [address] [place] [address] Referring Physician Dermatology 05/14/23 Jorje Ramirez MD [address] [facility] [place] [address] Referring Physician Urology 05/14/23 Bonita Ovalles MD 703 [facility] 2, [address] [place] [address] Referring Physician Cardiology 05/14/23 documented as of this encounter
--- OUTSIDE RECORDS SUMMARY | 2025-01-09 11:16 | XMS_ITS | Encounter Summary ---
Author Organization [facility] Address [address] [place] [address] Phone Care Team Providers Care Solar Installation Crew Supervisor Name Role Phone Trey Bowman DO Primary Care Provider [phone] Supa Reardon MD Primary Care Provider Encounter Details Date Type Department Care Team (Late Contact Info) Description 01/09/2022 Orders Only [facility] [address] [place] [address] Conversion, Onbase Social History Tobacco Use Types [...] Info) Description 03/22/2025 2:30 PM EDT Appointment [place] [place] [phone] 07/26/2025 9:20 AM EST Office Visit [address] [phone] Bonita Ovalles MD 703 [facility] 2, [address] [place], [place] [phone] Scheduled Orders Name Type Priority Associated Diagnoses Orde r Schedule OUTSIDE LAB SCAN Lab Ordered: 01/09/2022 documented as of this encounter Visit Diagnoses Not on filedocumented in this encounter Care Teams Solar Installation Crew Supervisor Relationship Specialty Start Date End Date Trey Bowman DO [address] [place] [address] PCP - General 02/15/20 02/23/23 Supa Reardon MD [address] [place] [address] PCP - General 02/24/23 documented as of this encounter
--- OUTSIDE RECORDS SUMMARY | 2025-01-09 11:16 | XMS_ITS | Encounter Summary ---
Author Organization [facility] Address [address] [place] [address] Phone Care Team Providers Care Hydraulic Elevator Constructor Name Role Phone Trey Bowman DO Primary Care Provider [phone] Supa Reardon MD Primary Care Provider Encounter Details Date Type Department Care Team (Late st Contact Info) Description 08/27/2020 Orders Only [facility] [address] [place] [address] Conversion, Onbase Social History Tobacco Use Types [...] Info) Description 03/22/2025 2:30 PM EDT Appointment [place] [place] [phone] 07/26/2025 9:20 AM EST Office Visit [address] [phone] Bonita Ovalles MD 703 [facility] [address], [address] [place], [place] [phone] Scheduled Orders Name Type Priority Associated Diagnoses Orde r Schedule OUTSIDE LAB SCAN Lab Ordered: 08/27/2020 documented as of this encounter Visit Diagnoses Not on filedocumented in this encounter Care Teams Hydraulic Elevator Constructor Relationship Specialty Start Date End Date Trey Bowman DO [address] [place] [address] PCP - General 02/15/20 02/23/23 Supa Reardon MD [address] [place] [address] PCP - General 02/24/23 documented as of this encounter
--- OUTSIDE RECORDS SUMMARY | 2025-01-09 11:16 | XMS_ITS | Encounter Summary ---
Author Organization [facility] Address [address] [facility] [place] [address] Care Team Providers Care Quantitative Software Engineer Name Role Phone Supa Reardon MD Primary Care Provider [phone] Trey Bowman DO Unavailable [phone] Monica Hook MD Unavailable [phone] Jorje Ramirez MD Unavailable [phone] Shay Ovalles MD Unavailable [phone] Supa Reardon MD Unavailable [phone] Encounter Details Date Type Department Care Team (Late Contact Info) Description 04/03/2023 Clinisync Result Encounter [facility] External Department Unsolicited [...] 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 Not on file documented as of this encounter Plan of Treatment Upcoming Encounters Date Type Department Care Team ([facility] Contact Info) Description 01/16/2025 1:00 PM EDT Office Visit [facility] [place] [facility] [address] [facility] [address] [place] [address] documented as of this encounter Procedures Procedure Name Priority Date/Time Associated Diagnosis Comments TRANSTHORACIC ECHO (TTE) COMPLETE 04/03/2023 9:02 AM EDT documented in this encounter Results * Transthoracic echo (TTE) complete (04/03/2023 9:02 AM EDT) Anatomical Region Laterality Modality Ultrasound 04/03/2023 9:02 AM EDT Narrative 04/03/2023 4:14 PM EDT [address], [address], [place] [address] TRANSTHORACIC ECHOCARDIOGRAM REPORT Patient Name: FANI TAY Reading Physician: [id number] Shay Ovalles MD, [facility] Study Date: 04/03/2023 Ordering Provider: [id number] SHAY OVALLES MRN/PID: [id number] Fellow: Nurse: Date of /Age: 12 1935 / 87 years Upsetting Machine Operator: Kalry Lin RD, T Gender: M Additional Staff: Height: 175.26 cm Admit Date: Weight: 75.75 kg Admission Status: BSA: 1.91 m2 Department Location: [facility] Blood Pressure: 130 /74 mmHg Study Type: TRANSTHORACIC ECHO (TTE) COMPLETE Diagnosis/ICD: 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 Ramirez 04/10/2023 CPT Codes: Echo Complete w Full Doppler-[id number] Study Detail: The following Echo studies were [...] Mean P.0 mmHg (1.7-11.5mmHg) LVOT Max Nabeel: 0.82 m/s (<=1.1m/s) AoV VTI: 51.40 cm (18-25cm) LVOT VTI: 13.40 cm LVOT Diameter: 2.30 cm (1.8-2.4cm) AoV Area, VTI: 1.08 cm2 (2.5-5.5cm2) AoV Area,Vmax: 1.55 cm2 (2.5-4.5cm2) AoV Dimensionless Index: 0.26 AORTIC INSUFFICIENCY: AI Vmax: 3.63 m/s AI Half-time: 521 msec AI Decel Rate: 374.00 cm/s2 TRICUSPID VALVE/RVSP: Normal Ranges: Peak TR Velocity: 2.93 m/s RV Syst Pressure: 37.3 mmHg (< 30mmHg) PULMONIC VALVE: Normal Ranges: PV Max Nabeel: 1.0 m/s (0.6-0.9m/s) PV Max P.7 mmHg PIEDV: 2.19 m/s PADP: 22.1 mmHg [id number] Shay Ovalles MD, FACC Electronically signed on 04/03/2023 at 4:14:09 PM Final Procedure Note Radiology, Radiologist, - 04/03/[address], [address], [place] [address] TRANSTHORACIC ECHOCARDIOGRAM REPORT Patient Name: FANI Johnson MAGGI Reading Physician: Meggan Ovalles MD,[facility] Study Date: 04/03/2023 Ordering Provider: MEGGAN OVALLES MRN/PID: [id number] Fellow: Nurse: Date of /Age: 12 1935 / 87 years Upsetting Machine Operator: Ngozi ANDRADE RVT Gender: M Additional Staff: Height: 175.26 cm Admit Date: Weight: 75.75 kg Admission Status: BSA: 1.91 m2 Department Location: [facility] Blood Pressure: 130 /74 mmHg Study Type: TRANSTHORACIC ECHO (TTE) COMPLETE Diagnosis/ICD: 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 Ramirez 04/10/2023 CPT Codes: Echo Complete w Full Doppler-[id number] Study Detail: The following Echo studies were performed: 2D, M-Mode,Doppler and color flow. PHYSICIAN INTERPRETATION: Left Ventricle: Left ventricular systolic function is mildly to moderatelydecreased, with an estimated ejection fraction of 45%. There is globalhypokinesis of the left ventricle with minor regional variations. The leftventricular cavity size is moderate to severely dilated. Left ventriculardiastolic filling was not assessed. Patient was in atrial fibrillationthroughout the study. Left Atrium: The left atrium is severely dilated. Right Ventricle: The right ventricle is normal in size. There is normalright ventricular global systolic function. Right Atrium: The right atrium is moderately dilated. Aortic Valve: The aortic valve appears abnormal. There is trivial aorticvalve regurgitation. The peak instantaneous gradient of the aortic valveis 19.2 mmHg. The mean gradient of the aortic valve is 10.0 mmHg. There shahab TAVR in good position and function. Mitral Valve: The mitral valve is mildly thickened. There is moderatemitral valve regurgitation. Tricuspid Valve: The tricuspid valve is structurally normal. There ismoderate tricuspid regurgitation. Calculated RVSP 49 mmHg consistent withmoderate pulmonary hypertension. Pulmonic Valve: The pulmonic valve is not well visualized. There is noindication of pulmonic valve regurgitation. Pericardium: There is no pericardial effusion noted. Aorta: The aortic root is normal. Systemic Veins: The inferior vena cava appears mildly dilated. In comparison to the previous echocardiogram(s): When compared to a studyfrom February 2022, there is more dilatation of the left ventricle withprogression of the mitral regurgitation from mild to moderate, leftventricle ejection fraction has slightly dropped as well, the TAVR has notchanged. CONCLUSIONS: 1. Left ventricular systolic function is mildly to moderately decreasedwith a 45% estimated ejection fraction. 2. Patient was in atrial fibrillation throughout the study. 3. The left atrium is severely dilated. 4. The right atrium is moderately dilated. 5. Moderate mitral valve regurgitation. 6. Calculated RVSP 49 mmHg consistent with moderate pulmonaryhypertension. 7. Moderate tricuspid regurgitation. 8. Aortic valve appears abnormal. 9. There is a TAVR in good position and function. 10. Left ventricular cavity size is moderate to severely dilated. 11. When compared to a study from February 2022, there is more dilatationof the left ventricle with progression of the mitral regurgitation frommild to moderate, left ventricle ejection fraction has slightly dropped aswell, the TAVR has not changed. 12. There is global hypokinesis of the left ventricle with minor regionalvariations. QUANTITATIVE DATA SUMMARY: 2D MEASUREMENTS: Normal Ranges: [...] Mean P.0 mmHg (1.7-11.5mmHg) LVOT Max Nabeel: 0.82 m/s (<=1.1m/s) AoV VTI: 51.40 cm (18-25cm) LVOT VTI: 13.40 cm LVOT Diameter: 2.30 cm (1.8-2.4cm) AoV Area, VTI: 1.08 cm2 (2.5-5.5cm2) AoV Area,Vmax: 1.55 cm2 (2.5-4.5cm2) AoV Dimensionless Index: 0.26 AORTIC INSUFFICIENCY: AI Vmax: 3.63 m/s AI Half-time: 521 msec AI Decel Rate: 374.00 cm/s2 TRICUSPID VALVE/RVSP: Normal Ranges: Peak TR Velocity: 2.93 m/s RV Syst Pressure: 37.3 mmHg (< 30mmHg) PULMONIC VALVE: Normal Ranges: PV Max Nabeel: 1.0 m/s (0.6-0.9m/s) PV Max P.7 mmHg PIEDV: 2.19 m/s PADP: 22.1 mmHg [id number] Shay Ovalles MD, [facility] Electronically signed on 04/03/2023 at 4:14:09 PM Final us Generic External Data Provider CV ECHO PROCEDURE S Final Result documented in this encounter Visit Diagnoses Not on filedocumented in this encounter Care Teams Quantitative Software Engineer Relationship Specialty Start Date End Date Supa Reardon MD [address] [place] [address] PCP - General Internal Medicine 11/04/22 Trey Bowman DO [address] [place] [address] PCP - ACO Reach 11/06/22 03/14/24 Supa Reardon MD [address] [place] [address] PCP - ACO Reach 03/15/24 Monica Hook MD [address] [place] [address] Referring Physician Dermatology 05/14/23 Jorje Ramirez MD [address] [facility] [place] [address] Referring Physician Urology 05/14/23 Shay Ovalles MD 703 [facility] [address] [place] [address] Referring Physician Cardiology 05/14/23 documented as of this encounter
--- OUTSIDE RECORDS SUMMARY | 2025-01-09 11:16 | XMS_ITS ---
Author Organization [facility] Address [address] [place] [address] Care Team Providers Care Landscape Drafter Name Role Phone Supa Reardon MD Primary Care Provider [phone] Monica Hook MD Unavailable [phone] Jorje Ramirez MD Unavailable [phone] Bonita Ovalles MD Unavailable [phone] Supa Reardon MD Unavailable [phone] Chronic Care Management (CCM) Status:Enrolled (Active) Start date:10/30/2022 Enrollment date:10/30/2022 Overview 08/11/23, 3:09 PM - Xiomara Villafana LPN- Patient gives verbal consent to be enrolled in CCM Program andunderstands there could be a bill for this service. Case Team Name Relationship Phone Ewa Blum MA(Responsible Staff) Clinical Ad vocate [phone] Continued Care and Services Coordination
--- OUTSIDE RECORDS SUMMARY | 2025-01-09 11:16 | XMS_ITS | Encounter Summary ---
Author Organization [facility] Address [address] [place] [address] Phone Care Team Providers Care Hybrid Technologist Name Role Phone Trey Bowman DO Primary Care Provider [phone]- [phone] Supa Reardon MD Primary Care Provider Encounter Details Date Type Department Care Team (Late st Contact Info) Description 09/25/2020 Orders Only [facility] [address] [place] [address] Conversion, Onbase Social History Tobacco Use Types [...] Info) Description 03/22/2025 2:30 PM EDT Appointment [address] [place] [address] 07/26/2025 9:20 AM EST Office Visit [address] [phone] Bonita Ovalles MD 703 [facility] [address] [place], [place] [phone] Scheduled Orders Name Type Priority Associated Diagnoses Orde r Schedule OUTSIDE LAB SCAN Lab Ordered: 09/25/2020 documented as of this encounter Visit Diagnoses Not on filedocumented in this encounter Care Teams Hybrid Technologist Relationship Specialty Start Date End Date Trey Bowman DO [address] [place] [address] PCP - General 02/15/20 02/23/23 Supa Reardon MD [address] [place] [address] PCP - General 02/24/23 documented as of this encounter
--- OUTSIDE RECORDS SUMMARY | 2025-01-09 11:16 | XMS_ITS | Encounter Summary ---
Author Organization [facility] Address [address] [place] [address] Phone Care Team Providers Care Cotton Weigher Operator Name Role Phone Trey Bowman DO Primary Care Provider [phone]- [phone] Supa Reardon MD Primary Care Provider Encounter Details Date Type Department Care Team (Late st Contact Info) Description 02/06/2020 Orders Only [facility] [address] [place] [address] Conversion, Onbase Social History Tobacco Use Types [...] Info) Description 03/22/2025 2:30 PM EDT Appointment [address] [place] [address] 07/26/2025 9:20 AM EST Office Visit [address] [phone] Bonita Ovalles MD 703 [facility] [address] [place], [place] [phone] Scheduled Orders Name Type Priority Associated Diagnoses Orde r Schedule OUTSIDE LAB SCAN Lab Ordered: 02/06/2020 documented as of this encounter Visit Diagnoses Not on filedocumented in this encounter Care Teams Cotton Weigher Operator Relationship Specialty Start Date End Date Trey Bowman DO [address] [place] [address] PCP - General 02/15/20 02/23/23 Supa Reardon MD [address] [place] [address] PCP - General 02/24/23 documented as of this encounter
--- OUTSIDE RECORDS SUMMARY | 2025-01-09 11:16 | XMS_ITS | Encounter Summary ---
Author Organization [facility] Address [address] [place] [address] Phone Care Team Providers Care Machine Tank Operator Name Role Phone Trey Bowman DO Primary Care Provider [phone] Supa Reardon MD Primary Care Provider Encounter Details Date Type Department Care Team (Late st Contact Info) Description 05/02/2020 Orders Only [facility] [address] [place] [address] Conversion, Onbase Social History Tobacco Use Types [...] Info) Description 03/22/2025 2:30 PM EDT Appointment [address] [place] [address] 07/26/2025 9:20 AM EST Office Visit [address] [phone] Bonita Ovalles MD 703 [facility] [address] [place] [address] Scheduled Orders Name Type Priority Associated Diagnoses Orde r Schedule OUTSIDE LAB SCAN Lab Ordered: 05/02/2020 documented as of this encounter Visit Diagnoses Not on filedocumented in this encounter Care Teams Machine Tank Operator Relationship Specialty Start Date End Date Trey Bowman DO [address] [place] [address] PCP - General 02/15/20 02/23/23 Supa Reardon MD [address] [place] [address] PCP - General 02/24/23 documented as of this encounter
--- OUTSIDE RECORDS SUMMARY | 2025-01-09 11:16 | XMS_ITS | Encounter Summary ---
Author Organization [facility] Address [address] [place] [address] Care Team Providers Care Polygraph Operator Name Role Phone Supa Reardon MD Primary Care Provider [phone] Trey Bowman DO Unavailable [phone] Monica Hook MD Unavailable [phone] Jorje Ramirez MD Unavailable [phone] Bonita Ovalles MD Unavailable [phone] Supa Reardon MD Unavailable [phone] Encounter Details Date Type Department Care Team (Late Contact Info) Description 12/19/2022 Orders Only [facility] [address] [facility] [address] [place] [address] Provider, MD Maricruz [address] [place] [address] Social History Tobacco Use Types Packs/Day Years Used Date Smoking Tobacco: Former Cigarettes Q uit: 06/15/2001 Comments:Ex-heavy cigarettes smoker (20-30/day) Alcohol Use Standard [...] Description 01/16/2025 1:00 PM EDT Office Visit [facility] [address] [place] [address] documented as of this encounter Procedures Procedure Name Priority Date/Time Associated Diagnosis Comments CT LUMBAR SPINE W WO CONTRAST Routine 12/18/2022 9:01 AM EDT documented in this encounter Results * CT LUMBAR SPINE W WO CONTRAST (12/18/2022 9:01 AM EDT) Anatomical Region Laterality Modality Radiographic Bonnie ging us Historical Provider MD PAGE XR PROCEDURES Edited Result - Final documented in this encounter Visit Diagnoses Not on filedocumented in this encounter Care Teams Polygraph Operator Relationship Specialty Start Date End Date Supa Reardon MD [address] [facility] [address] [place] [address] PCP - General Internal Medicine 11/04/22 Trey Bowman DO [address] [facility] [address] [place] [address] PCP - ACO Reach 11/06/22 03/14/24 Supa Reardon MD [address] [facility] [address] [place] [address] PCP - ACO Reach 03/15/24 Monica Hook MD [address] [facility] [address] [place] [address] Referring Physician Dermatology 05/14/23 Jorje Ramirez MD [address] [place] [address] Referring Physician Urology 05/14/23 Bonita Ovalles MD [address] [facility] [address] [place] [address] Referring Physician Cardiology 05/14/23 documented as of this encounter
--- OUTSIDE RECORDS SUMMARY | 2025-01-09 11:16 | XMS_ITS | Encounter Summary ---
Author Organization [facility] Address [address] [place] [address] Phone Care Team Providers Care Pediatrician Name Role Phone Trey Bowman DO Primary Care Provider [phone] Supa Reardon MD Primary Care Provider Encounter Details Date Type Department Care Team (Late Contact Info) Description 11/25/2022 Orders Only [facility] [address] [place] [address] Conversion, Onbase Social History Tobacco Use Types [...] Info) Description 03/22/2025 2:30 PM EDT Appointment [address] [place] [address] 07/26/2025 9:20 AM EST Office Visit [address] [phone] Bonita Ovalles MD 703 [facility] [address] [place], [place] [phone] Scheduled Orders Name Type Priority Associated Diagnoses Orde r Schedule OUTSIDE LAB SCAN Lab Ordered: 11/25/2022 documented as of this encounter Visit Diagnoses Not on filedocumented in this encounter Care Teams Pediatrician Relationship Specialty Start Date End Date Trey Bowman DO [address] [place] [address] PCP - General 02/15/20 02/23/23 Supa Reardon MD [address] [place] [address] PCP - General 02/24/23 documented as of this encounter
--- OUTSIDE RECORDS SUMMARY | 2025-01-09 11:16 | XMS_ITS | Encounter Summary ---
Author Organization [facility] Address [address] [place] [address] Phone Care Team Providers Care Mushroom Farmer Name Role Phone Trey Bowman DO Primary Care Provider [phone] Supa Reardon MD Primary Care Provider Encounter Details Date Type Department Care Team (Late st Contact Info) Description 04/24/2022 Orders Only [facility] [address] [place] [address] Conversion, Onbase Social History Tobacco Use Types [...] Info) Description 03/22/2025 2:30 PM EDT Appointment [address] [place] [address] 07/26/2025 9:20 AM EST Office Visit [address] [phone] Bonita Ovalles MD 703 [facility] [address] [place] [address] Scheduled Orders Name Type Priority Associated Diagnoses Orde r Schedule OUTSIDE LAB SCAN Lab Ordered: 04/24/2022 documented as of this encounter Visit Diagnoses Not on filedocumented in this encounter Care Teams Mushroom Farmer Relationship Specialty Start Date End Date Trey Bowman DO [address] [place] [address] PCP - General 02/15/20 02/23/23 Supa Reardon MD [address] [place] [address] PCP - General 02/24/23 documented as of this encounter
--- OUTSIDE RECORDS SUMMARY | 2025-01-09 11:16 | XMS_ITS | Encounter Summary ---
Author Organization [facility] Address [address] [place] [address] Phone Care Team Providers Care Applied Science And Technologies Dean Name Role Phone Trey Bowman DO Primary Care Provider [phone] Supa Reardon MD Primary Care Provider [phone] Encounter Details Date Type Department Care Team (Late st Contact Info) Description 01/13/2023 Scanned Document [facility] [address] [place] [address] Conversion, Onbase Social History Tobacco Use Types [...] Info) Description 03/22/2025 2:30 PM EDT Appointment [address] [place] [address] 07/26/2025 9:20 AM EST Office Visit [address] [place] [phone] Bonita Ovalles MD 703 [facility] [address] [place], [place] [address] documented as of this encounter Procedures Procedure Name Priority Date/Time Associated Diagnosis Comments OUTSIDE IMAGING SCAN 01/13/2023 documented in this encounter Results * OUTSIDE IMAGING SCAN (01/13/2023) Anatomical Region Laterality Modality Other Narrative 01/13/2023 Ordered by an unspecified provider. us Onbase Conversion OUTSIDE SCAN Final Result documented in this encounter Visit Diagnoses Not on filedocumented in this encounter Care Teams Applied Science [employer] Technologies Dean Relationship Specialty Start Date End Date Trey Bowman DO [address] [place] [address] PCP - General 02/15/20 02/23/23 Supa Reardon MD [address] [place] [address] PCP - General 02/24/23 documented as of this encounter
--- OUTSIDE RECORDS SUMMARY | 2025-01-09 11:16 | XMS_ITS | Encounter Summary ---
Author Organization [facility] Address [address] [place] [address] Phone Care Team Providers Care Solutions Delivery Consultant Name Role Phone Trey Bowman DO Primary Care Provider [phone]- [phone] Supa Readron MD Primary Care Provider [phone] Encounter Details Date Type Department Care Team (Late Contact Info) Description 02/11/2022 Orders Only [facility] [address] [place] [address] Conversion, Onbase Social History Tobacco Use Types Packs/Day Years Used Date Smoking Tobacco: Never Assessed Sex and Gender Information Value Date Recorded Sex Assigned at Not on file Legal Sex Male 9:02 AM EST Gender Identity Not on file Sexual Orientation Not on file documented as of this encounter Functional Status * Little interest or pleasure in doing things Answer Date of Assessment Author Not at all 02/13/2022 11:44 AM EDT Conversi on, [employer] Touch[employer] Vitals documented as of this encounter Plan of Treatment Upcoming Encounters Date Type Department Care Team (Late Contact Info) Description 03/22/2025 2:30 PM EDT Appointment [address] [place] [address] 07/26/2025 9:20 AM EST Office Visit [address] [place] [phone] Bonita Ovalles MD 703 [facility] [address] [place] [address] Scheduled Orders Name Type Priority Associated Diagnoses Orde r Schedule OUTSIDE LAB SCAN Lab Ordered: 02/11/2022 documented as of this encounter Visit Diagnoses Not on filedocumented in this encounter Care Teams Solutions Delivery Consultant Relationship Specialty Start Date End Date Trey Bowman DO [address] [place] [address] PCP - General 02/15/20 02/23/23 Supa Reardon MD [address] [place] [address] PCP - General 02/24/23 documented as of this encounter
--- OUTSIDE RECORDS SUMMARY | 2025-01-09 11:16 | XMS_ITS | Encounter Summary ---
Author Organization [facility] Address [address] [place] [address] Phone Care Team Providers Care Road Manager Name Role Phone Trey Bowman DO Primary Care Provider [phone]- [phone] Supa Reardon MD Primary Care Provider Encounter Details Date Type Department Care Team (Late Contact Info) Description 08/14/2020 Orders Only [facility] [address] [place] [address] Conversion, Onbase Social History Tobacco Use Types [...] Info) Description 03/22/2025 2:30 PM EDT Appointment [address] [place] [address] 07/26/2025 9:20 AM EST Office Visit [address] [phone] Bonita Ovalles MD 703 [facility] [address] [place], [place] [phone] Scheduled Orders Name Type Priority Associated Diagnoses Orde r Schedule OUTSIDE LAB SCAN Lab Ordered: 08/14/2020 documented as of this encounter Visit Diagnoses Not on filedocumented in this encounter Care Teams Road Manager Relationship Specialty Start Date End Date Trey Bowman DO [address] [place] [address] PCP - General 02/15/20 02/23/23 Supa Reardon MD [address] [place] [address] PCP - General 02/24/23 documented as of this encounter
--- OUTSIDE RECORDS SUMMARY | 2025-01-09 11:16 | XMS_ITS | Encounter Summary ---
Author Organization [facility] Address [address] [place] [address] Phone Care Team Providers Care Assembler Utility Buildings Name Role Phone Trey Bowman DO Primary Care Provider [phone] Supa Reardon MD Primary Care Provider Encounter Details Date Type Department Care Team (Late Contact Info) Description 08/09/2020 Orders Only [facility] [address] [place] [address] Conversion, Onbase Social History Tobacco Use Types [...] Info) Description 03/22/2025 2:30 PM EDT Appointment [address] [place] [address] 07/26/2025 9:20 AM EST Office Visit [address] [phone] Bonita Ovalles MD 703 [facility] [address] [place] [address] Scheduled Orders Name Type Priority Associated Diagnoses Orde r Schedule OUTSIDE LAB SCAN Lab Ordered: 08/09/2020 documented as of this encounter Visit Diagnoses Not on filedocumented in this encounter Care Teams Assembler Utility Buildings Relationship Specialty Start Date End Date Trey Bowman DO [address] [place] [address] PCP - General 02/15/20 02/23/23 Supa Reardon MD [address] [place] [address] PCP - General 02/24/23 documented as of this encounter
--- OUTSIDE RECORDS SUMMARY | 2025-01-09 11:16 | XMS_ITS | Encounter Summary ---
Author Organization [facility] Address [address] [place] [address] Phone Care Team Providers Care Degreasing Wheel Operator Name Role Phone Trey Bowman DO Primary Care Provider [phone]- [phone] Supa Reardon MD Primary Care Provider Encounter Details Date Type Department Care Team (Late Contact Info) Description 10/23/2020 Orders Only [facility] [address] [place] [address] Conversion, Onbase Social History Tobacco Use Types [...] Info) Description 03/22/2025 2:30 PM EDT Appointment [address] [place] [address] 07/26/2025 9:20 AM EST Office Visit [address] [phone] Bonita Ovalles MD 703 [facility] [address] [place], [place] [phone] Scheduled Orders Name Type Priority Associated Diagnoses Orde r Schedule OUTSIDE LAB SCAN Lab Ordered: 10/23/2020 documented as of this encounter Visit Diagnoses Not on filedocumented in this encounter Care Teams Degreasing Wheel Operator Relationship Specialty Start Date End Date Trey Bowman DO [address] [place] [address] PCP - General 02/15/20 02/23/23 Supa Reardon MD [address] [place] [address] PCP - General 02/24/23 documented as of this encounter
--- OUTSIDE RECORDS SUMMARY | 2025-01-09 11:16 | XMS_ITS | Clinical Summary ---
Author Organization [facility] Address [address] [facility] [address] [place] [address] Care Team Providers Care Head Swamper Name Role Phone Trey Bowman DO Primary Care Provider Allergies Active Allergy Reactions Criticality Noted Date Comments Amoxicillin Swelling High 03/07/2014 Welts, facial swelling Bacitracin 01/19/2019 Neomycin 01/19/2019 Polymyxin B 01/19/2019 Medications gabapentin (NEURONTIN) 100 MG capsule Take 100 mg by mouth 3 times daily. Active gemfibrozil (LOPID) 600 MG tablet Take 600 mg by mouth 2 times daily (before meals) Active pantoprazole (PROTONIX) 40 MG tablet Take 40 mg by mouth daily Active meloxicam (MOBIC) 7.5 MG tablet Take 7.5 mg by mouth daily Active acetaminophen (TYLENOL) 325 MG tablet Take 650 mg by mouth every 6 hours as needed for Pain Active warfarin (COUMADIN) 5 MG tablet 1 to 1- 1/2 tablets per day as directed by physician 145 tablet 3 0 Active furosemide (LASIX) 20 MG tablet Take 40 mg by mouth daily Active potassium chloride (KLOR-CON) 20 MEQ packet Take 20 mEq by mouth 2 times daily Active Active Problems Problem Noted Date Diagnosed Date Musculoskeletal pain 06/16/2019 Hypertensive disorder 06/16/2019 Gout 06/16/2019 Foot pain 06/16/2019 Gastro-esophageal reflux disease without esophag itis 06/10/2019 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 2018 Venous insufficiency (chronic) (peripheral) 05/16 Chronic venous hypertension (idiopathic) with inflammation of left lower extremity 05/10/2019 Type 2 diabetes mellitus without complications 0 01/11/2019 Personal history of other malignant neoplasm of skin 01/11/2019 Tobacco abuse 01/11/2019 Hypertriglyceridemia 10/27/2014 Chronic atrial fibrillation 10/27/2014 Immunizations Immunization Administration Dates Next Due Influenza Virus Vaccine 02/13/2007 Influenza, FLUAD, (age 65 y+), IM, Trivalent PF, 0.5mL 03/03/2018 Influenza, FLUARIX, FLULAVAL , FLUZONE (age 6 mo+) and AFLURIA, (age 3 y+), Quadv PF, 0.5mL 04/30/2017 Influenza, FLUZONE High Dose , (age 65 y+), IM, Trivalent PF, 0.5mL 05/01/2017 Pneumococcal, PCV-13, PREVNAR 13, (age 6w+), IM, 0.5mL 05/18/2017 Pneumococcal, PPSV23, PNEUMO VAX 23, (age 2y+), SC/IM, 0.5mL 10/02/2010 Family History Medical History Relation Name Comments Other Father heart Relation Name Status Comments Father Mother Social History Tobacco Use Types Packs/Day Years Used Date Smoking Tobacco: Former Cigarettes Cigars Smokeless Tobacco: Never Alcohol Use Standard Drinks/Week Comments Yes 0 (1 standard drink = 0.6 oz pur e alcohol) Sex and Gender Information Value Date Recorded Sex Assigned at Not on file Legal Sex Male 9:34 AM EDT Gender Identity Not on file Sexual Orientation Not on file Last Filed Vital Signs Vital Sign Reading Time Taken Comments Blood Pressure 128/78 02/02/2020 11:10 AM EDT Pulse 111 02/02/2020 11:10 AM EDT Temperature - - Respiratory Rate - - Oxygen Saturation 95% 02/02/2020 11:10 AM EDT Inhaled Oxygen Concentration - - Weight 81.6 kg (180 lb) 02/02/2020 11:10 AM EDT Height 175.3 cm (5' 9 ) 02/02/2020 11:10 AM EDT Body Mass Index 26.58 02/02/2020 11:10 AM EDT Plan of Treatment Not on file Insurance MEDICARE Member Subscriber Plan / Payer (Ef fective 2018-Present) Name:Gerard Chua Relation to Subscriber:Self Name:Gerard Chua Payer ID:Not on file Group ID:Not on file Type:Not on file Address: [address] Care Teams Head Swamper Relationship Specialty Start Date End Date Trey Bowman DO [address] [place] [address] PCP - General Internal Medicine 06/16/19
--- OUTSIDE RECORDS SUMMARY | 2025-01-09 11:16 | XMS_ITS | Encounter Summary ---
Author Organization [facility] Address [address] [place] [address] Phone Care Team Providers Care Flight Service Specialist Name Role Phone Trey Bowman DO Primary Care Provider [phone]- [phone] Supa Reardon MD Primary Care Provider Encounter Details Date Type Department Care Team (Late st Contact Info) Description 05/15/2020 Orders Only [facility] [address] [place] [address] Conversion, Onbase Social History Tobacco Use Types [...] Info) Description 03/22/2025 2:30 PM EDT Appointment [address] [place] [address] 07/26/2025 9:20 AM EST Office Visit [address] [phone] Bointa Ovalles MD 703 [facility] [address] [place], [place] [phone] Scheduled Orders Name Type Priority Associated Diagnoses Orde r Schedule OUTSIDE LAB SCAN Lab Ordered: 05/15/2020 documented as of this encounter Visit Diagnoses Not on filedocumented in this encounter Care Teams Flight Service Specialist Relationship Specialty Start Date End Date Trey Bowman DO [address] [place] [address] PCP - General 02/15/20 02/23/23 Supa Reardon MD [address] [place] [address] PCP - General 02/24/23 documented as of this encounter
--- OUTSIDE RECORDS SUMMARY | 2025-01-09 11:16 | XMS_ITS | Encounter Summary ---
Author Organization [facility] Address [address] [place] [address] Phone Care Team Providers Care Motorcycle Delivery Driver Name Role Phone Trey Bowman DO Primary Care Provider [phone]- [phone] Supa Reardon MD Primary Care Provider [phone] Encounter Details Date Type Department Care Team (Late Contact Info) Description 10/04/2020 Orders Only [facility] [address] [place] [address] Conversion, Onbase Social History Tobacco Use Types [...] Info) Description 03/22/2025 2:30 PM EDT Appointment [address] [place] [address] 07/26/2025 9:20 AM EST Office Visit [address] [phone] Bonita Ovalles MD 703 [facility] [address] [place], [place] [address] Scheduled Orders Name Type Priority Associated Diagnoses Orde r Schedule OUTSIDE LAB SCAN Lab Ordered: 10/04/2020 documented as of this encounter Visit Diagnoses Not on filedocumented in this encounter Care Teams Motorcycle Delivery Driver Relationship Specialty Start Date End Date Trey Bowman DO [address] [place] [address] PCP - General 02/15/20 02/23/23 Supa Reardon MD [address] [place] [address] PCP - General 02/24/23 documented as of this encounter
--- OUTSIDE RECORDS SUMMARY | 2025-01-09 11:16 | XMS_ITS | Encounter Summary ---
Author Organization [facility] Address [address] [place] [address] Phone Care Team Providers Care Product Design Specialist Name Role Phone Supa Reardon MD Primary Care Provider Encounter Details Date Type Department Care Team (Late Contact Info) Description 06/04/2023 Scanned Document [facility] [address] [place] [address] Scanning, Generic Provider Social History [...] Info) Description 03/22/2025 2:30 PM EDT Appointment [address] [place] [phone] 07/26/2025 9:20 AM EST Office Visit [address] [place] [phone] Bonita Ovalles MD 703 [facility] [address] [place] [address] documented as of this encounter Procedures Procedure Name Priority Date/Time Associated Diagnosis Comments OUTSIDE IMAGING SCAN 06/04/2023 documented in this encounter Results * OUTSIDE IMAGING SCAN (06/04/2023) Anatomical Region Laterality Modality Other Narrative 06/04/2023 Ordered by an unspecified provider. us Generic Provider Scanning OUTSIDE SCAN Final Result documented in this encounter Visit Diagnoses Not on filedocumented in this encounter Care Teams Product Design Specialist Relationship Specialty Start Date End Date Supa Reardon MD [address] [place] [address] PCP - General 02/24/23 documented as of this encounter
--- OUTSIDE RECORDS SUMMARY | 2025-01-09 11:16 | XMS_ITS | Encounter Summary ---
Author Organization [facility] Address [address] [place] [address] Phone Care Team Providers Care Applications Programmer Analyst Name Role Phone Trey Bowman DO Primary Care Provider [phone] Supa Reardon MD Primary Care Provider Encounter Details Date Type Department Care Team (Late Contact Info) Description 02/06/2022 Orders Only [facility] [address] [place] [address] Conversion, Onbase Social History Tobacco Use Types [...] 03/22/2025 2:30 PM EDT Appointment [place] [address] [place] [address] 07/26/2025 9:20 AM EST Office Visit [address] [phone] Bonita Ovalles MD 703 [facility] [address] [place], [place] [address] Scheduled Orders Name Type Priority Associated Diagnoses Orde r Schedule OUTSIDE LAB SCAN Lab Ordered: 02/06/2022 documented as of this encounter Visit Diagnoses Not on filedocumented in this encounter Care Teams Applications Programmer Analyst Relationship Specialty Start Date End Date Trey Bowman DO [address] [place] [address] PCP - General 02/15/20 02/23/23 Supa Reardon MD [address] [place] [address] PCP - General 02/24/23 documented as of this encounter
--- OUTSIDE RECORDS SUMMARY | 2025-01-09 11:16 | XMS_ITS | Encounter Summary ---
Author Organization [facility] Address [address] [place] [address] Phone Care Team Providers Care Client Relationship Manager Name Role Phone Trey Bowman DO Primary Care Provider [phone] Supa Reardon MD Primary Care Provider Encounter Details Date Type Department Care Team (Late Contact Info) Description 10/14/2022 Orders Only [facility] [address] [place] [address] Conversion, Onbase Social History Tobacco Use Types [...] Info) Description 03/22/2025 2:30 PM EDT Appointment [place] [place] [address] 07/26/2025 9:20 AM EST Office Visit [address] [phone] Bonita Ovalles MD 703 [facility] [address] [place], [place] [phone] Scheduled Orders Name Type Priority Associated Diagnoses Orde r Schedule OUTSIDE LAB SCAN Lab Ordered: 10/14/2022 documented as of this encounter Visit Diagnoses Not on filedocumented in this encounter Care Teams Client Relationship Manager Relationship Specialty Start Date End Date Trey Bowman DO [address] [place] [address] PCP - General 02/15/20 02/23/23 Supa Reardon MD [address] [place] [address] PCP - General 02/24/23 documented as of this encounter
--- OUTSIDE RECORDS SUMMARY | 2025-01-09 11:16 | XMS_ITS | Encounter Summary ---
Author Organization [facility] Address [address] [place] [address] Phone Care Team Providers Care Clinical Appeals Rn Name Role Phone Trey Bowman DO Primary Care Provider [phone] Supa Reardon MD Primary Care Provider Encounter Details Date Type Department Care Team (Late Contact Info) Description 02/17/2023 Orders Only [facility] [address] [place] [address] Conversion, Onbase Social History Tobacco Use Types [...] Info) Description 03/22/2025 2:30 PM EDT Appointment [place] [address] [place] [address] 07/26/2025 9:20 AM EST Office Visit [address] [phone] Boniat Ovalles MD 703 [facility] [address] [place], [place] [phone] Scheduled Orders Name Type Priority Associated Diagnoses Orde r Schedule OUTSIDE LAB SCAN Lab Ordered: 02/17/2023 OUTSIDE LAB SCAN Lab Ordered: 02/17/2023 documented as of this encounter Visit Diagnoses Not on filedocumented in this encounter Care Teams Clinical Appeals Rn Relationship Specialty Start Date End Date Trey Bowman DO [address] [place] [address] PCP - General 02/15/20 02/23/23 Supa Reardon MD [address] [place] [address] PCP - General 02/24/23 documented as of this encounter
--- OUTSIDE RECORDS SUMMARY | 2025-01-09 11:16 | XMS_ITS | Encounter Summary ---
Author Organization [facility] Address [address] [place] [address] Phone Care Team Providers Care Clinical Investigator Name Role Phone Trey Bowman DO Primary Care Provider [phone] Supa Reardon MD Primary Care Provider Encounter Details Date Type Department Care Team (Late Contact Info) Description 11/27/2020 Orders Only [facility] [address] [place] [address] Conversion, Onbase Social History Tobacco Use Types [...] Info) Description 03/22/2025 2:30 PM EDT Appointment [place] [address] [place] [address] 07/26/2025 9:20 AM EST Office Visit [address] [phone] Bonita Ovalles MD 703 [facility] [address] [place], [place] [phone] Scheduled Orders Name Type Priority Associated Diagnoses Orde r Schedule OUTSIDE LAB SCAN Lab Ordered: 11/27/2020 documented as of this encounter Visit Diagnoses Not on filedocumented in this encounter Care Teams Clinical Investigator Relationship Specialty Start Date End Date Trey Bowman DO [address] [place] [address] PCP - General 02/15/20 02/23/23 Supa Reardon MD [address] [place] [address] PCP - General 02/24/23 documented as of this encounter
--- OUTSIDE RECORDS SUMMARY | 2025-01-09 11:16 | XMS_ITS | Encounter Summary ---
Author Organization [facility] Address [address] [place] [address] Phone Care Team Providers Care Automatic Transmission Mechanic Name Role Phone Trey Bowman DO Primary Care Provider [phone]- [phone] Supa Reardon MD Primary Care Provider Encounter Details Date Type Department Care Team (Late st Contact Info) Description 06/14/2020 Orders Only [facility] [address] [place] [address] Conversion, Onbase Social History Tobacco Use Types [...] Info) Description 03/22/2025 2:30 PM EDT Appointment [place] [address] [place] [address] 07/26/2025 9:20 AM EST Office Visit [address] [phone] Bonita Ovalles MD 703 [facility] [address] [place], [place] [phone] Scheduled Orders Name Type Priority Associated Diagnoses Orde r Schedule OUTSIDE LAB SCAN Lab Ordered: 06/14/2020 documented as of this encounter Visit Diagnoses Not on filedocumented in this encounter Care Teams Automatic Transmission Mechanic Relationship Specialty Start Date End Date Trey Bowman DO [address] [place] [address] PCP - General 02/15/20 02/23/23 Supa Reardon MD [address] [place] [address] PCP - General 02/24/23 documented as of this encounter
--- OUTSIDE RECORDS SUMMARY | 2025-01-09 11:16 | XMS_ITS | Encounter Summary ---
Author Organization [facility] Address [address] [facility] [place] [address] Care Team Providers Care Mess Attendant Name Role Phone Supa Reardon MD Primary Care Provider [phone] Trey Bowman DO Unavailable [phone] Monica Hook MD Unavailable [phone] Jorje Ramirez MD Unavailable [phone] Bonita Ovalles MD Unavailable [phone] Supa Reardon MD Unavailable [phone] Encounter Details Date Type Department Care Team (Late st Contact Info) Description 01/02/2023 Orders Only [facility] [address] [facility] [address] [place] [address] A, Unknown Practice [address] [place] [phone] Social History Tobacco Use Types Packs/Day Years [...] [address] [place] [address] documented as of this encounter Procedures Procedure Name Priority Date/Time Associated Diagnosis Comments CT LUMBAR SPINE W WO CONTRAST Routine 12/19/2022 1:20 PM EDT documented in this encounter Results * CT LUMBAR SPINE W WO CONTRAST (12/19/2022 1:20 PM EDT) Anatomical Region Laterality Modality Radiographic Bonnie ging us Unknown Practice A IMG XR PROCEDURES Final Resul t documented in this encounter Visit Diagnoses Not on filedocumented in this encounter Care Teams Mess Attendant Relationship Specialty Start Date End Date Supa Reardon MD [address] [place] [address] PCP - General Internal Medicine 11/04/22 Trey Bowman DO [address] [place] [address] PCP - ACO Reach 11/06/22 03/14/24 Supa Reardon MD [address] [place] [address] PCP - ACO Reach 03/15/24 Monica Hook MD [address] [place] [address] Referring Physician Dermatology 05/14/23 Jorje Ramirez MD [address] [place] [address] Referring Physician Urology 05/14/23 Bonita Ovalles MD 703 [facility] [address] [place] [address] Referring Physician Cardiology 05/14/23 documented as of this encounter
--- OUTSIDE RECORDS SUMMARY | 2025-01-09 11:16 | XMS_ITS | Encounter Summary ---
Author Organization [facility] Address [address] [place] [address] Phone Care Team Providers Care Softball Player Name Role Phone Trey Bowman DO Primary Care Provider [phone]- [phone] Supa Reardon MD Primary Care Provider Encounter Details Date Type Department Care Team (Late Contact Info) Description 01/06/2023 Orders Only [facility] [address] [place] [address] Conversion, Onbase Social History Tobacco Use Types [...] 03/22/2025 2:30 PM EDT Appointment [address] [place] [address] 07/26/2025 9:20 AM EST Office Visit [address] [phone] Bonita Ovalles MD 703 [facility] [address] [place], [place] [phone] Scheduled Orders Name Type Priority Associated Diagnoses Orde r Schedule OUTSIDE LAB SCAN Lab Ordered: 01/06/2023 documented as of this encounter Visit Diagnoses Not on filedocumented in this encounter Care Teams Softball Player Relationship Specialty Start Date End Date Trey Bowman DO [address] [place] [address] PCP - General 02/15/20 02/23/23 Supa Reardon MD [address] [place] [address] PCP - General 02/24/23 documented as of this encounter
--- OUTSIDE RECORDS SUMMARY | 2025-01-09 11:16 | XMS_ITS | Encounter Summary ---
Author Organization [facility] Address [address] [place] [address] Phone Care Team Providers Care Ballroom Dance Instructor Name Role Phone Trey Bowman DO Primary Care Provider [phone] Supa Reardon MD Primary Care Provider Encounter Details Date Type Department Care Team (Late Contact Info) Description 04/15/[address] [facility] [address] [place] [address] Conversion, Onbase Social History Tobacco Use Types [...] Info) Description 03/22/2025 2:30 PM EDT Appointment [place] [address] [place] [address] 07/26/2025 9:20 AM EST Office Visit [address] [phone] Bonita Ovalles MD 703 [facility] [address] [place] [address] Scheduled Orders Name Type Priority Associated Diagnoses Orde r Schedule OUTSIDE LAB SCAN Lab Ordered: 04/15/2022 documented as of this encounter Visit Diagnoses Not on filedocumented in this encounter Care Teams Ballroom Dance Instructor Relationship Specialty Start Date End Date Trey Bowman DO [address] [place] [address] PCP - General 02/15/20 02/23/23 Supa Reardon MD [address] [place] [address] PCP - General 02/24/23 documented as of this encounter
--- OUTSIDE RECORDS SUMMARY | 2025-01-09 11:16 | XMS_ITS | Encounter Summary ---
Author Organization [facility] Address [address] [place] [address] Phone Care Team Providers Care Noteman Name Role Phone Trey Bowman DO Primary Care Provider [phone] Supa Reardon MD Primary Care Provider Encounter Details Date Type Department Care Team (Late st Contact Info) Description 03/25/2022 Orders Only [facility] [address] [place] [address] Conversion, Onbase Social History Tobacco Use Types [...] Info) Description 03/22/2025 2:30 PM EDT Appointment [place] [address] [place] [address] 07/26/2025 9:20 AM EST Office Visit [address] [phone] Bonita Ovalles MD 703 [facility] [address] [place] [address] Scheduled Orders Name Type Priority Associated Diagnoses Orde r Schedule OUTSIDE LAB SCAN Lab Ordered: 03/25/2022 documented as of this encounter Visit Diagnoses Not on filedocumented in this encounter Care Teams Noteman Relationship Specialty Start Date End Date Trey Bowman DO [address] [place] [address] PCP - General 02/15/20 02/23/23 Supa Reardon MD [address] [place] [address] PCP - General 02/24/23 documented as of this encounter
--- OUTSIDE RECORDS SUMMARY | 2025-01-09 11:17 | XMS_ITS | Data Portability ---
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 Ct scans in [place], has long hx of spinal stenosis. was getting shots with dr. ramirez, his has severe stenosis as well he has a hard time functioning. s/p snrb with 100% relief for weeks, now with minimal relief. has been falling, tore his rotor cuff, also broke his knee cap in january. starting pt. 100% improved from the shot, will monitor. We discussed thoroughly with the patient the risks and benefits of the steroid injection including hyperglycemia or elevated blood sugar and osteoporosis. The patient voiced their understanding and acknowledges that their blood sugar and/or diabetes is under control and the potential risk for bone loss and by extension bone fracture. The patient has failed 3 months of conservative management, including trials of nsaids, tylenol, neuropathic agents, muscle relaxants and physical therapy or spinal manipulation. The patient is not a surgical candidate at this time. The patient is currently involved in our pain management program and undr my direction for a home exercise plan of care as clinically appropriate. The pain is severe and impairing function and adl's despite activity modification. There are no contraindications to injection therapy, such as bleeding or infection risk. The injection is medically necessary so as to avoid any potential escalation to opioid therapy I counseled the patient extensively regarding spine care, activity modification, their diagnosis, treatment options and the plan of care. Discussed the risks, benefits, and alternatives. The patient is agreeable. I look forward to their response. They will follow up accordingly. Thank you for allowing me to participate in their care. This office visit was coded a level 3 because the patient encounter involved an expanded problem history and examination. It involved one or more self-limited problems, one stable chronic illness or one acute uncomplicated illness. The combination of the above required a lower level and degree of medical decision making as well as time. 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 Ct scans in [place], has long hx of spinal stenosis. was getting shots with dr. ramirez, his has severe stenosis as well he has a hard time functioning. s/p snrb with 100% relief for weeks, now with minimal relief. has been falling, tore his rotor cuff, also broke his knee cap in january. starting pt. 100% improved from the shot, will obtain CT scan of the spine. caregiver for his . maybe a MILD candidate. We discussed thoroughly with the patient the risks and benefits of the steroid injection including hyperglycemia or elevated blood sugar and osteoporosis. The patient voiced their understanding and acknowledges that their blood sugar and/or diabetes is under control and the potential risk for bone loss and by extension bone fracture. The patient has failed 3 months of conservative management, including trials of nsaids, tylenol, neuropathic agents, muscle relaxants and physical therapy or spinal manipulation. The patient is not a surgical candidate at this time. The patient is currently involved in our pain management program and undr my direction for a home exercise plan of care as clinically appropriate. The pain is severe and impairing function and adl's despite activity modification. There are no contraindications to injection therapy, such as bleeding or infection risk. The injection is medically necessary so as to avoid any potential escalation to opioid therapy I counseled the patient extensively regarding spine care, activity modification, their diagnosis, treatment options and the plan of care. Discussed the risks, benefits, and alternatives. The patient is agreeable. I look forward to their response. They will follow up accordingly. Thank you for allowing me to participate in their care. This office visit was coded a level 4 because the patient encounter involved a detailed problem history and examination involving two or more medical issues or problems. Specifically, the visit involved two or more self-limited medical problems, two stable chronic illnesses, or two acute uncomplicated illness, or 1 complicated medical illness. The combination of the above required a moderate level and degree of medical decision making as well as time. This encounter took an extensive amount of time based on medical history and patient complexity. 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 Ct scans in [place], has long hx of spinal stenosis. was getting shots with dr. ramirez, his has severe stenosis as well he has a hard time functioning. s/p snrb with 100% relief for weeks, now with minimal relief. has been falling, tore his rotor cuff, also broke his knee cap in january. starting pt. 100% improved from the shot, reviewed CT scan of the spine today. caregiver for his . discussed MILD candidacy, will proceed with facet block We discussed thoroughly with the patient the risks and benefits of the steroid injection including hyperglycemia or elevated blood sugar and osteoporosis. The patient voiced their understanding and acknowledges that their blood sugar and/or diabetes is under control and the potential risk for bone loss and by extension bone fracture. The patient has failed 3 months of conservative management, including trials of nsaids, tylenol, neuropathic agents, muscle relaxants and physical therapy or spinal manipulation. The patient is not a surgical candidate at this time. The patient is currently involved in our pain management program and undr my direction for a home exercise plan of care as clinically appropriate. The pain is severe and impairing function and adl's despite activity modification. There are no contraindications to injection therapy, such as bleeding or infection risk. The injection is medically necessary so as to avoid any potential escalation to opioid therapy I counseled the patient extensively regarding spine care, activity modification, their diagnosis, treatment options and the plan of care. Discussed the risks, benefits, and alternatives. The patient is agreeable. I look forward to their response. They will follow up accordingly. Thank you for allowing me to participate in their care. This office visit was coded a level 4 because the patient encounter involved a detailed problem history and examination involving two or more medical issues or problems. Specifically, the visit involved two or more self-limited medical problems, two stable chronic illnesses, or two acute uncomplicated illness, or 1 complicated medical illness. The combination of the above required a moderate level and degree of medical decision making as well as time. This encounter took an extensive amount of time based on medical history and patient complexity. 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 Ct scans in [place], has long hx of spinal stenosis. was getting shots with dr. ramirez, his has severe stenosis as well he has a hard time functioning. s/p snrb with 100% relief for weeks, now with minimal relief. has been falling, tore his rotor cuff, also broke his knee cap in january. starting pt. 100% improved from the shot, reviewed CT scan of the spine today. caregiver for his . discussed MILD candidacy, s/p facet block We discussed thoroughly with the patient the risks and benefits of the steroid injection including hyperglycemia or elevated blood sugar and osteoporosis. The patient voiced their understanding and acknowledges that their blood sugar and/or diabetes is under control and the potential risk for bone loss and by extension bone fracture. The patient has failed 3 months of conservative management, including trials of nsaids, tylenol, neuropathic agents, muscle relaxants and physical therapy or spinal manipulation. The patient is not a surgical candidate at this time. The patient is currently involved in our pain management program and undr my direction for a home exercise plan of care as clinically appropriate. The pain is severe and impairing function and adl's despite activity modification. There are no contraindications to injection therapy, such as bleeding or infection risk. The injection is medically necessary so as to avoid any potential escalation to opioid therapy I counseled the patient extensively regarding spine care, activity modification, their diagnosis, treatment options and the plan of care. Discussed the risks, benefits, and alternatives. The patient is agreeable. I look forward to their response. They will follow up accordingly. Thank you for allowing me to participate in their care. This office visit was coded a level 4 because the patient encounter involved a detailed problem history and examination involving two or more medical issues or problems. Specifically, the visit involved two or more self-limited medical problems, two stable chronic illnesses, or two acute uncomplicated illness, or 1 complicated medical illness. The combination of the above required a moderate level and degree of medical decision making as well as time. This encounter took an extensive amount of time based on medical history and patient complexity. [email or web address] Not available 11/25/2024 07:30:59 Plan of Treatment Reminders Order Date Submit Date Provider Last Modified By Organization Details Last Modified Time Details Appointments FOLLOW UP 10 2024 11:00A M Buck Carrillo MD Not available Not available Not available Lab None recorded. Referral None recorded. Procedures None recorded. Surgeries facet joint injection , lumbar (SURG) 2024 025 [email or web address] Not available 10/27/2024 13:59:[address], lumbar spine, w/o contrast 2024 025 DAVON Not available 10/04/2024 15:09:26 Medication Orders None recorded. Patient TargetsNo targets recorded. Patient Instructions Encounter Date Encounter Id Patient Instructions Last Modified By Organization Details Last Modified Time 05/27/2024 [id number] broken kneecap: care instructions [email or web address] Not available 05/27/2024 13:40:52 rotator cuff injury: care instructions [email or web address] Not available 05/27/2024 13:40:52 lumbar spinal stenosis: care instructions [email or web address] Not available 05/27/2024 13:40:52 07/22/2024 [id number] broken kneecap: care instructions [email or web address] Not available 07/22/2024 15:12:08 rotator cuff injury: care instructions ahedaya Not available 07/22/2024 15:12:08 lumbar spinal stenosis: care instructions ahedaya Not available 07/22/2024 15:12:08 10/21/2024 [id number] broken kneecap: care instructions ahedaya Not available 10/21/2024 11:04:13 rotator cuff injury: care instructions ahedaya Not available 10/21/2024 11:04:13 lumbar spinal stenosis: care instructions ahedaya Not available 10/21/2024 11:04:13 11/25/2024 [id number] broken kneecap: care instructions ahedaya Not available 11/25/2024 10:57:52 rotator cuff injury: care instructions ahedaya Not available 11/25/2024 10:57:52 lumbar spinal stenosis: care instructions ahedaya Not available 11/25/2024 10:57:52 Reason for Referral None Reported. Results Created Date Observation Date Name Description Value Unit Range Abnormal Flag Note LastModifiedBy Organization Detail LastModifiedTime 10/05/19 25 10/04/2024 CT, lumba r spine , w/o contr ast No observ ation record ed. [email or web address] Not Available 09/14 15:09:31 Result Notes None recorded. Problems No Known Problems Procedures Surgical History Date Name Laterality Status Provider Name and Address Organization Details Recorded Time 11/04/2024 LFJI B/L L3-S1 completed Buck Carrillo MD [address] [place], [address], [facility] 11/04/2024 07:09:03 05/06/2024 B/L LSNRB L4 & L5 completed Buck Carrillo MD [address] [place], [address], [facility] [employer] [facility] 05/06/2024 05:50:36 12/04/2023 B/L LSNRB L4 & L5 completed Buck Carrillo MD [address] [place], [address], [facility] 12/04/2023 12:19:46 Imaging Results None recorded. Procedure Notes None recorded. Medical Equipment None Reported. Allergies Allergen ID Allergen Name Allergen Category Reaction Reaction Severity Criticality Documentation Date Start Date Code Code System Note Provider Name and Address Organization Details Recorded Time 92451 amoxicill in medicatio n Not available Not available Not available 11/20/2023 723 RxNorm Buck Carrillo MD [address] [place], [address], [facility] [employer] [facility] 15:06:22 Medications Name Sig Start Date Stop Date Status Note LastModified by Organization Details LastModified Time atorvastatin 40 mg tablet TAKE 1 TABLET BY MOUTH DAILY active Not Available Not Available No t Available atorvastatin 80 mg tablet TAKE 1 TABLET BY MOUTH DAILY active Not Available Not Available No t Available doxycycline hyclate 100 mg capsule TAKE 1 CAPSULE BY MOUTH IN THE MORNING then TAKE 1 CAPSULE BY MOUTH BEFORE bedtime FOR 7 DAYS, TAKE WITH at least EIGHT ounces OF water, do not lie down for 30 MINUTES after active Not Available Not Available No t Available azithromycin 250 mg tablet TAKE 2 TABLETS by mouth today, THEN take 1 TABLET once a day FOR the next 4 DAYS. active Not Available Not Available No t Available hydrocodone 5 mg-acetaminop hen 325 mg tablet TAKE 1 TO 2 TABLETS BY MOUTH EVERY 6 HOURS NEEDED for moderate pain for up to 7 (SEVEN) days active Not Available Not Available No t Available minocycline 100 mg capsule TAKE 1 CAPSULE BY MOUTH TWICE DAILY (IN THE MORNING and AT BEDTIME) FOR 7 DAYS active Not Available Not Available N ot Available prednisone 20 mg tablet TAKE 2 TABLETS BY MOUTH DAILY active Not Available Not Available No t Available enalapril maleate 2.5 mg tablet TAKE 1 TABLET BY MOUTH TWICE DAILY active Not Available Not Available No t Available ciprofloxacin 500 mg tablet TAKE 1 TABLET BY MOUTH day prior to procedure then TAKE 1 TABLET BY MOUTH day OF procedure after procedure active Not Available Not Available No t Available tramadol 50 mg tablet TAKE 1 TABLET BY MOUTH EVERY 8 HOURS NEEDED for severe pain active Not Available Not Available No t Available oxycodone-anne taminophen 5 mg-325 mg tablet TAKE 1 TABLET BY MOUTH EVERY 6 HOURS NEEDED for moderate to severe pain up to 5 (FIVE) days active Not Available Not Available No t Available cephalexin 500 mg capsule TAKE 1 CAPSULE BY MOUTH TWICE DAILY FOR 10 DAYS active Not Available Not Available No t Available pantoprazole 40 mg tablet,delaye d release TAKE 1 TABLET BY MOUTH IN THE MORNING BEFORE MEALS active Not Available Not Available No t Available warfarin 5 mg tablet TAKE 2 TABLETS BY MOUTH AT BEDTIME active Not Available Not Available No t Available indomethacin 50 mg capsule TAKE 1 CAPSULE BY MOUTH TWICE DAILY NEEDED FOR PAIN active Not Available Not Available No t Available methylprednis olone 4 mg tablets in a dose pack TAKE BY MOUTH DIRECTED ON PACKAGE active Not Available Not Available N ot Available oxybutynin chloride 5 mg tablet TAKE 1 TABLET BY MOUTH TWICE DAILY NEEDED FOR BLADDER SPASM active Not Available Not Available No t Available gentamicin 0.1 % topical ointment apply a thin layer TO THE AFFECTED AREA(S) on both lower leg ulcers topically three times a week active Not Available Not Available No t Available oxycodone 5 mg tablet TAKE 1 TABLET BY MOUTH EVERY 8 HOURS NEEDED for severe pain active Not Available Not Available No t Available Vitals None Recorded Social History None recorded. Functional Status None recorded. Mental Status None recorded. Family History Relationship Description Onset Age of this Age Resolved Age Notes LastModified by Organization Details LastModified Time Father No current problems or disability [email or web address] Not available 11/19 15:06:30 Mother No current problems or disability [email or web address] Not available 11/19 15:06:30 Medical History Condition Response Coronary Artery Disease Y Past Encounters Encounter ID Performer Location Encounter Start Date Encounter Closed Date Diagnosis/Indication Diagnosis SNOMED-CT Code Diagnosis ICD10 Code Diagnosis Note [id number] MD [facility] [address] [place] [address] 11/20/2023 14:12:45 11/20/2023 15:09:15 Lumbosacral radiculopathy 2058881 M54.17 Spinal payton nosis of lumbar region 22301271 M48.062 [id number] Buck Carrillo MD [facility] [address] [place] [address] 12/04/2023 07:38:51 12/07/2023 10:06:11 [id number] MD [facility] [address] [place] [address] 03/11/2024 11:00:38 03/11/2024 11:25:56 Lumbosacral radiculopathy 5007672 M54.17 Spinal payton nosis of lumbar region 38736754 M48.062 Full thick ness rotator cuff tear 287963126 M75.120 Fracture of patella 5103 7009 S82.001A [id number] MD [facility] [address] [place] [address] 04/22/2024 12:55:47 04/22/2024 13:37:35 Lumbosacral radiculopathy 2548309 M54.17 Spinal payton nosis of lumbar region 36796785 M48.062 Full thick ness rotator cuff tear 305117075 M75.120 Fracture of patella 5103 7009 S82.001A [id number] Buck Carrillo MD [facility] [address] [place] [address] 05/06/2024 05:50:05 05/08/2024 09:04:45 [id number] MD [facility] [address] [place] [address] 05/27/2024 12:06:21 05/27/2024 13:45:35 Lumbosacral radiculopathy 4299868 M54.17 Spinal payton nosis of lumbar region 94606623 M48.062 Full thick ness rotator cuff tear 306723850 M75.120 Fracture of patella 5103 7009 S82.001A [id number] MD [facility] [address] [place] [address] 07/22/2024 14:48:06 07/22/2024 15:26:52 Lumbosacral radiculopathy 8503092 M54.17 Spinal payton nosis of lumbar region 66246863 M48.062 Full thick ness rotator cuff tear 636840456 M75.120 Fracture of patella 5103 7009 S82.001A [id number] MD [facility] [address] [place] [address] 10/21/2024 10:33:56 10/21/2024 13:58:34 Lumbosacral radiculopathy 1833732 M54.17 Spinal payton nosis of lumbar region 28348649 M48.062 Full thick ness rotator cuff tear 084439550 M75.120 Fracture of patella 5103 7009 S82.001A Lumbar spondylosis 30659 0009 M47.816 [id number] Buck Carrillo MD [facility] [address] [place] [address] 11/04/2024 07:08:17 11/06/2024 11:19:36 [id number] MD [facility] [address] [place] [address] 11/25/2024 10:43:27 11/25/2024 11:06:30 Lumbosacral radiculopathy 9715671 M54.17 Spinal payton nosis of lumbar region 67563126 M48.062 Full thick ness rotator cuff tear 131069425 M75.120 Fracture of patella 5103 7009 S82.001A Lumbar spondylosis 57311 0009 M47.816 Health Concerns Section Related Observation LastModified by Organization Detai ls LastModified Time None Recorded Concern Status LastModified by Organization Details LastModified Time None Recorded Advance Directives Directive None Recorded Payers Insurance Date Sequence Insurance Name Policy Number Policy Casanova Covered Member ID Casanova Member ID Guarantor Name 11/25/2024 1 [place] Gerard Chua [id number] Gerard Chua 11/25/2024 2 [employer] (MEDICARE SUPPLEMENT) [id number] Gerard Chua [id number] Gerard Chua
--- OUTSIDE RECORDS SUMMARY | 2025-01-09 11:17 | XMS_ITS | Encounter Summary ---
Author Organization [facility] Address [address] [place] [address] Phone Care Team Providers Care Dynamo Repairer Name Role Phone Trey Bowman DO Primary Care Provider [phone] Supa Reardon MD Primary Care Provider Encounter Details Date Type Department Care Team (Late Contact Info) Description 01/24/2021 Orders Only [facility] [address] [place] [address] Conversion, Onbase Social History Tobacco Use Types [...] Info) Description 03/22/2025 2:30 PM EDT Appointment [address] [place] [phone] 07/26/2025 9:20 AM EST Office Visit [address] [phone] Bonita Ovalles MD [address] [facility] [address] [place], [place] [phone] Scheduled Orders Name Type Priority Associated Diagnoses Orde r Schedule OUTSIDE LAB SCAN Lab Ordered: 01/24/2021 documented as of this encounter Visit Diagnoses Not on filedocumented in this encounter Care Teams Dynamo Repairer Relationship Specialty Start Date End Date Trey Bowman DO [address] [place] [address] PCP - General 02/15/20 02/23/23 Supa Reardon MD [address] [place] [address] PCP - General 02/24/23 documented as of this encounter
--- OUTSIDE RECORDS SUMMARY | 2025-01-09 11:17 | XMS_ITS | Encounter Summary ---
Author Organization [facility] Address [address] [place] [address] Phone Care Team Providers Care Wing Mailer Machine Operator Name Role Phone Trey Bowman DO Primary Care Provider [phone] Supa Reardon MD Primary Care Provider Encounter Details Date Type Department Care Team (Late Contact Info) Description 02/28/2021 Orders Only [facility] [address] [place] [address] Conversion, Onbase Social History Tobacco Use Types [...] Info) Description 03/22/2025 2:30 PM EDT Appointment [id number] [place] [phone] 07/26/2025 9:20 AM EST Office Visit [address] [phone] Bonita Ovalles MD [address] [facility] [address] [place], [place] [phone] Scheduled Orders Name Type Priority Associated Diagnoses Orde r Schedule OUTSIDE LAB SCAN Lab Ordered: 02/28/2021 documented as of this encounter Visit Diagnoses Not on filedocumented in this encounter Care Teams Wing Mailer Machine Operator Relationship Specialty Start Date End Date Trey Bowman DO [address] [place] [address] PCP - General 02/15/20 02/23/23 Supa Reardon MD [address] [place] [address] PCP - General 02/24/23 documented as of this encounter
--- OUTSIDE RECORDS SUMMARY | 2025-01-09 11:17 | XMS_ITS | Encounter Summary ---
Author Organization [facility] Address [address] [place] [address] Care Team Providers Care Machine Shop Worker Name Role Phone Supa Reardon MD Primary Care Provider [phone] Trey Bowman DO Unavailable [phone] Monica Hook MD Unavailable [phone] Jorje Ramirez MD Unavailable [phone] Bonita Ovalles MD Unavailable [phone] Supa Reardon MD Unavailable [phone] Encounter Details Date Type Department Care Team (Late st Contact Info) Description 01/13/2023 External Result Encounter [facility] External Department Unsolicited Supa Reardon MD [address] [facility] [address] [place] [address] Social History Tobacco Use Types Packs/Day Years [...] Date Job End Date 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 Not on file Not on file documented as of this encounter Plan of Treatment Upcoming Encounters Date Type Department Care Team (Late Contact Info) Description 01/16/2025 1:00 PM EDT Office Visit [facility] [place] [facility] [address] [place] [address] documented as of this encounter Procedures Procedure Name Priority Date/Time Associated Diagnosis Comments CT UROGRAM W AND WO IV CONTRAST 01/13/2023 3:32 PM EDT documented in this encounter Results * CT UROGRAM W AND WO IV CONTRAST (01/13/2023 3:32 PM EDT) Anatomical Region Laterality Modality Ureter, Upper urinary tract Comp uted Tomography 01/13/2023 3:32 PM EDT Impressions 01/13/2023 6:50 PM EDT Limited exam from streak artifact from bilateral hip arthroplasties limiting assessment of the urinary bladder and the distal ureters. Moderate RIGHT hydronephrosis and hydroureter. No visualized obstructing stone. Bilateral renal scarring. Bilateral renal cysts. Cardiomegaly. Hepatic steatosis. Impression dictated by: Trey Murray M.D.01/13/2023 3:39 PM Dictation Location: [place] [address] Transcribed By: [facility] 01/13/23 1539 Dictated By: Trey Murray DO 01/13/23 1532 Signed By: <Electronically signed by Trey Murray DO in OV> 01/13/23 1539 Narrative 01/13/2023 6:50 PM EDT [facility] Main [address] [address] [address] Scan Report Signed Patient: Gerard Chua MR#: [id number] : 1935 Acct:[id number] Age/Sex: 87 / M ADM Date: 01/13/23 Loc: CT Room: Type: [facility] Attending Dr: Supa Reardon MD Copies to: Supa Reardon MD Ordering Provider: Supa Reardon MD Date of Service: 01/13/23 CT/CT urogram: N13.30 CT urogram TECHNIQUE: Axial imaging with 2-D reconstruction.90 cc of Isovue-300. The CT exam was performed using one or more the following dose reduction techniques: Automated exposure control, adjustment of the MA and/or Kv according to patient size, or use of the iterative reconstruction technique. COMPARISON: 04/08/18 History: Enlarged kidney. Hydronephrosis. Prostatectomy. History of prostate and bladder cancer LIMITATIONS: None LOWER THORAX cardiomegaly. The cardiac valve replacement changes lung bases clear LIVER: Hepatic steatosis GALLBLADDER: Cholelithiasis. Contracted gallbladder. BILE DUCTS: No dilatation SPLEEN: Remote granulomatous changes. PANCREAS: Unremarkable ADRENAL GLANDS: Unremarkable KIDNEYS:Marked RIGHT hydronephrosis and hydroureter. Scattered distal ureter. No obstructing stone seen without limitations. L bilateral renal cysts largest on the RIGHT inferior pole measuring up to 5 cm cm. Bilateral renal scarring greater on the LEFT. No LEFT hydronephrosis. With delayed imaging contrast identified in the proximal RIGHT renal collecting system. This is present in the LEFT intrarenal collecting system and LEFT ureter. The RIGHT ureter not opacified. Prompt symmetric nephrograms. AORTA: No abdominal aortic aneurysm identified. Atherosclerosis. RETROPERITONEUM: No significant retroperitoneal abnormalities identified. MESENTERY:Unremarkable SMALL BOWEL: The small bowel loops are nondistended. APPENDIX: The appendix is normal. COLON: Unremarkable URINARY BLADDER: Urinary bladder is unremarkable. REPRODUCTIVE SYSTEM: Prostatectomy changes. PNEUMOPERITONEUM: None PERITONEAL FLUID:None BONY STRUCTURES: Bilateral hip arthroplasties. This limits assessment of the inferior pelvis secondary to streak artifact. ABDOMINAL WALL: Unremarkable CT/CT urogram Procedure Note Radiology, MD Gerardo - 01/13/2023 [facility] Main [place] [address] [place] [address] CT Scan Report Signed Patient: Gerard Chua WMR#: [id number] : 6Acct:[id number] Age/Sex: 87 / MADM Date: 01/13/23 Loc: CT Room:Type: [facility] Attending Dr: Supa Reardon MD Copies to: Supa Reardon MD Ordering Provider: Supa Reardon MD Date of Service: 01/13/23 CT/CT urogram: N13.30 CT urogram TECHNIQUE: Axial imaging with 2-D reconstruction.90 cc of Isovue-300. TheCT exam was performed using one or more the following dose reduction techniques: Automatedexposure control, adjustment of the MA and/or Kv according to patient size, or use of the iterativereconstruction technique. COMPARISON: 04/08/18 History: Enlarged kidney. Hydronephrosis. Prostatectomy. History ofprostate and bladder cancer LIMITATIONS: None LOWER THORAX cardiomegaly. The cardiac valve replacement changes lungbases clear LIVER: Hepatic steatosis GALLBLADDER: Cholelithiasis. Contracted gallbladder. BILE DUCTS: No dilatation SPLEEN: Remote granulomatous changes. PANCREAS: Unremarkable ADRENAL GLANDS: Unremarkable KIDNEYS:Marked RIGHT hydronephrosis and hydroureter. Scattered distalureter. No obstructing stone seen without limitations. L bilateral renal cysts largest on the RIGHTinferior pole measuring up to 5 cm cm. Bilateral renal scarring greater on the LEFT. No LEFThydronephrosis. With delayed imaging contrast identified in the proximal RIGHT renal collecting system.This is present in the LEFT intrarenal collecting system and LEFT ureter. The RIGHT ureter notopacified. Prompt symmetric nephrograms. AORTA: No abdominal aortic aneurysm identified. Atherosclerosis. RETROPERITONEUM: No significant retroperitoneal abnormalities identified. MESENTERY:Unremarkable SMALL BOWEL: The small bowel loops are nondistended. APPENDIX: The appendix is normal. COLON: Unremarkable URINARY BLADDER: Urinary bladder is unremarkable. REPRODUCTIVE SYSTEM: Prostatectomy changes. PNEUMOPERITONEUM: None PERITONEAL FLUID:None BONY STRUCTURES: Bilateral hip arthroplasties. This limits assessment ofthe inferior pelvis secondary to streak artifact. ABDOMINAL WALL: Unremarkable CT/CT urogram IMPRESSION: Limited exam from streak artifact from bilateral hip arthroplastieslimiting assessment of the urinary bladder and the distal ureters. Moderate RIGHThydronephrosis and hydroureter. No visualized obstructing stone. Bilateral renal scarring. Bilateral renalcysts. Cardiomegaly. Hepatic steatosis. Impression dictated by: Trey Murray M.D.01/13/2023 3:39 PM Dictation Location: [place] [address] Transcribed By: [facility] 01/13/23 1539 Dictated By: Trey Murray DO 01/13/23 1532 Signed By: <Electronically signed by Trey Murray DO in OV> 01/13/23 1539 Supa Reardon MD IMG CT PROCEDURES Final Result documented in this encounter Visit Diagnoses Not on filedocumented in this encounter Care Teams Machine Shop Worker Relationship Specialty Start Date End Date Supa Reardon MD [address] [place] [address] PCP - General Internal Medicine 11/04/22 Tery Bowman DO [address] [place] [address] PCP - ACO Reach 11/06/22 03/14/24 Supa Reardon MD [address] [place] [address] PCP - ACO Reach 03/15/24 Monica Hook MD [address] [place] [address] Referring Physician Dermatology 05/14/23 Jorje Ramirez MD [address] [facility] [place] [address] Referring Physician Urology 05/14/23 Bonita Ovalles MD [address] [facility] [address], [address] [place] [address] Referring Physician Cardiology 05/14/23 documented as of this encounter
--- OUTSIDE RECORDS SUMMARY | 2025-01-09 11:17 | XMS_ITS | Encounter Summary ---
Author Organization [facility] Address [address] [facility] [place] [address] Care Team Providers Care General Medical Practitioner Name Role Phone Supa Reardon MD Primary Care Provider [phone] Trey Bowman DO Unavailable [phone] Monica Hook MD Unavailable [phone] Jorje Ramirez MD Unavailable [phone] Bonita Ovalles MD Unavailable [phone] Supa Reardon MD Unavailable [phone] Encounter Details Date Type Department Care Team (Late st Contact Info) Description 10/15/2023 Orders Only [facility] [place] [facility] [address] [facility] [address] [place] [address] A, Unknown Practice [address] [place] [phone] Social History Tobacco Use Types Packs/Day Years [...] Date Job End 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 Not on file Not on file documented as of this encounter Plan of Treatment Upcoming Encounters Date Type Department Care Team (Late st Contact Info) Description 01/16/2025 1:00 PM EDT Office Visit [facility] [place] [facility] [address] [place] [address] documented as of this encounter Visit Diagnoses Not on filedocumented in this encounter Care Teams General Medical Practitioner Relationship Specialty Start Date End Date Supa Reardon MD [address] [place] [address] PCP - General Internal Medicine 11/04/22 Trey Bowman DO [address] [place] [address] PCP - ACO Reach 11/06/22 03/14/24 Supa Reardon MD [address] [place] [address] PCP - ACO Reach 03/15/24 Monica Hook MD [address] [place] [address] Referring Physician Dermatology 05/14/23 Jorje Ramirez MD [address] [place] [address] Referring Physician Urology 05/14/23 Bonita Ovalles MD [address] [place] [address] Referring Physician Cardiology 05/14/23 documented as of this encounter
--- OUTSIDE RECORDS SUMMARY | 2025-01-09 11:17 | XMS_ITS | Encounter Summary ---
Author Organization [facility] Address [address] [place] [address] Phone Care Team Providers Care Public Health Advisor Name Role Phone Trey Bowman DO Primary Care Provider [phone] Supa Reardon MD Primary Care Provider Encounter Details Date Type Department Care Team (Late Contact Info) Description 02/07/2021 Orders Only [facility] LEGACY [address] [place] [address] Conversion, Onbase Social History Tobacco Use Types [...] Info) Description 03/22/2025 2:30 PM EDT Appointment [place] [address] [place] [address] 07/26/2025 9:20 AM EST Office Visit [address] [phone] Bonita Ovalles MD [address] [facility] [address], [address] [place], [place] [phone] Scheduled Orders Name Type Priority Associated Diagnoses Orde r Schedule OUTSIDE LAB SCAN Lab Ordered: 02/07/2021 documented as of this encounter Visit Diagnoses Not on filedocumented in this encounter Care Teams Public Health Advisor Relationship Specialty Start Date End Date Trey Bowman DO [address] [place] [address] PCP - General 02/15/20 02/23/23 Supa Reardon MD [address] [place] [address] PCP - General 02/24/23 documented as of this encounter
--- OUTSIDE RECORDS SUMMARY | 2025-01-09 11:17 | XMS_ITS | Encounter Summary ---
Author Organization [facility] Address [address] [place] [address] Phone Care Team Providers Care Armature Winder Repair Name Role Phone Trey Bowman DO Primary Care Provider [phone] Supa Reardon MD Primary Care Provider Encounter Details Date Type Department Care Team (Late Contact Info) Description 01/17/2021 Orders Only [facility] LEGACY [address] [place] [address] Conversion, Onbase Social History Tobacco Use Types [...] Info) Description 03/22/2025 2:30 PM EDT Appointment [place] [address] [place] [address] 07/26/2025 9:20 AM EST Office Visit [address] [phone] Bonita Ovalles MD 703 [facility] [address], [address] [place], [place] [phone] Scheduled Orders Name Type Priority Associated Diagnoses Orde r Schedule OUTSIDE LAB SCAN Lab Ordered: 01/17/2021 documented as of this encounter Visit Diagnoses Not on filedocumented in this encounter Care Teams Armature Winder Repair Relationship Specialty Start Date End Date Trey Bowman DO [address] [place] [address] PCP - General 02/15/20 02/23/23 Supa Reardon MD [address] [place] [address] PCP - General 02/24/23 documented as of this encounter
--- OUTSIDE RECORDS SUMMARY | 2025-01-09 11:17 | XMS_ITS | Encounter Summary ---
Author Organization [facility] Address [address] [place] [address] Phone Care Team Providers Care Dam Tender Name Role Phone Trey Bowman DO Primary Care Provider [phone] Supa Reardon MD Primary Care Provider Encounter Details Date Type Department Care Team (Late Contact Info) Description 03/05/2021 Orders Only [facility] LEGACY [address] [place] [address] Conversion, Onbase Social History Tobacco Use Types [...] Info) Description 03/22/2025 2:30 PM EDT Appointment [place] [address] [place] [phone] 07/26/2025 9:20 AM EST Office Visit [address] [phone] Bonita Ovalles MD 703 [facility] 2, [address] [place], [place] [phone] Scheduled Orders Name Type Priority Associated Diagnoses Orde r Schedule OUTSIDE LAB SCAN Lab Ordered: 03/05/2021 documented as of this encounter Visit Diagnoses Not on filedocumented in this encounter Care Teams Dam Tender Relationship Specialty Start Date End Date Trey Bowman DO [address] [place] [address] PCP - General 02/15/20 02/23/23 Supa Reardon MD [address] [place] [address] PCP - General 02/24/23 documented as of this encounter
--- OUTSIDE RECORDS SUMMARY | 2025-01-09 11:17 | XMS_ITS | Encounter Summary ---
Author Organization [facility] Address [address] [place] [address] Phone Care Team Providers Care Lathe Tender Name Role Phone Trey Bowman DO Primary Care Provider [phone] Supa Reardon MD Primary Care Provider Encounter Details Date Type Department Care Team (Late Contact Info) Description 01/03/2021 Orders Only [facility] LEGACY [address] [place] [address] Conversion, Onbase Social History Tobacco Use Types [...] Info) Description 03/22/2025 2:30 PM EDT Appointment [place] [address] [place] [address] 07/26/2025 9:20 AM EST Office Visit [address] [phone] Bonita Ovalles MD [address]03 [facility] [address], [address] [place], [place] [phone] Scheduled Orders Name Type Priority Associated Diagnoses Orde r Schedule OUTSIDE LAB SCAN Lab Ordered: 01/03/2021 documented as of this encounter Visit Diagnoses Not on filedocumented in this encounter Care Teams Lathe Tender Relationship Specialty Start Date End Date Trey Bowman DO [address] [place] [address] PCP - General 02/15/20 02/23/23 Supa Reardon MD [address] [place] [address] PCP - General 02/24/23 documented as of this encounter
--- OUTSIDE RECORDS SUMMARY | 2025-01-09 11:17 | XMS_ITS | Encounter Summary ---
Author Organization [facility] Address [address] [place] [address] Phone Care Team Providers Care Shop Repairer Name Role Phone Trey Bowman DO Primary Care Provider [phone] Supa Reardon MD Primary Care Provider [phone] Encounter Details Date Type Department Care Team (Late Contact Info) Description 01/10/2021 Orders Only [facility] LEGACY [address] [place] [address] Conversion, Onbase Social History Tobacco Use Types [...] Info) Description 03/22/2025 2:30 PM EDT Appointment [place] [address] [place] [phone] 07/26/2025 9:20 AM EST Office Visit [address] [phone] Bonita Ovalles MD 703 [facility] [address] [place], [place] [phone] Scheduled Orders Name Type Priority Associated Diagnoses Orde r Schedule OUTSIDE LAB SCAN Lab Ordered: 01/10/2021 documented as of this encounter Visit Diagnoses Not on filedocumented in this encounter Care Teams Shop Repairer Relationship Specialty Start Date End Date Trey Bowman DO [address] [place] [address] PCP - General 02/15/20 02/23/23 Supa Reardon MD [address] [place] [address] PCP - General 02/24/23 documented as of this encounter
--- OUTSIDE RECORDS SUMMARY | 2025-01-09 11:17 | XMS_ITS | Encounter Summary ---
Author Organization [facility] Address [address] [place] [address] Phone Care Team Providers Care Claim Representative Name Role Phone Trey Bowman DO Primary Care Provider [phone] Supa Reardon MD Primary Care Provider Encounter Details Date Type Department Care Team (Late Contact Info) Description 06/13/2021 Orders Only [facility] LEGACY [address] [place] [address] Conversion, Onbase Social History Tobacco Use Types [...] Info) Description 03/22/2025 2:30 PM EDT Appointment [place] [address] [place] [address] 07/26/2025 9:20 AM EST Office Visit [address] [phone] Bonita Ovalles MD 703 [facility] [address], [address] [place], [place] [phone] Scheduled Orders Name Type Priority Associated Diagnoses Orde r Schedule OUTSIDE LAB SCAN Lab Ordered: 06/13/2021 documented as of this encounter Visit Diagnoses Not on filedocumented in this encounter Care Teams Claim Representative Relationship Specialty Start Date End Date Trey Bowman DO [address] [place] [address] PCP - General 02/15/20 02/23/23 Supa Reardon MD [address] [place] [address] PCP - General 02/24/23 documented as of this encounter
--- OUTSIDE RECORDS SUMMARY | 2025-01-09 11:17 | XMS_ITS | Encounter Summary ---
Author Organization [facility] Address [address] [place] [address] Phone Care Team Providers Care Neck Cutter Name Role Phone Trey Bowman DO Primary Care Provider [phone] Supa Reardon MD Primary Care Provider [phone] Encounter Details Date Type Department Care Team (Late Contact Info) Description 02/26/2021 Orders Only [facility] LEGACY [address] [place] [address] Conversion, Onbase Social History Tobacco Use Types [...] Info) Description 03/22/2025 2:30 PM EDT Appointment [place] [address] [place] [phone] 07/26/2025 9:20 AM EST Office Visit [address] [phone] Bonita Ovalles MD 703 [facility] [address], [address] [place], [place] [phone] Scheduled Orders Name Type Priority Associated Diagnoses Orde r Schedule OUTSIDE LAB SCAN Lab Ordered: 02/26/2021 documented as of this encounter Visit Diagnoses Not on filedocumented in this encounter Care Teams Neck Cutter Relationship Specialty Start Date End Date Trey Bowman DO [address] [place] [address] PCP - General 02/15/20 02/23/23 Supa Reardon MD [address] [place] [address] PCP - General 02/24/23 documented as of this encounter
--- OUTSIDE RECORDS SUMMARY | 2025-01-09 11:17 | XMS_ITS | Encounter Summary ---
Author Organization [facility] Address [address] [place] [address] Care Team Providers Care Behavioral Medical Director Name Role Phone Supa Reardon MD Primary Care Provider [phone] Trey Bowman DO Unavailable [phone] Monica Hook MD Unavailable [phone] Jorje Ramirez MD Unavailable [phone] Bonita Ovalles MD Unavailable [phone] Supa Reardon MD Unavailable [phone] Encounter Details Date Type Department Care Team (Late st Contact Info) Description 01/08/2023 Abstract [facility] [place] [facility] [address] [facility] [address] [place] [address] Monica Hook MD [address] 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 Not on file Not on file documented as of this encounter Plan of Treatment Upcoming Encounters Date Type Department Care Team (Late st Contact Info) Description 01/16/2025 1:00 PM EDT Office Visit [facility] [place] [facility] [address] [place] [phone] documented as of this encounter Visit Diagnoses Not on filedocumented in this encounter Care Teams Behavioral Medical Director Relationship Specialty Start Date End Date Supa Reardon MD [address] [place] [address] PCP - General Internal Medicine 11/04/22 Trey Bowman DO [address] [place] [address] PCP - ACO Reach 11/06/22 03/14/24 Supa Reardon MD [address] [place] [address] PCP - ACO Reach 03/15/24 Monica Hook MD [address] [place] [address] Referring Physician Dermatology 05/14/23 Jorje Ramirez MD [address] [place] [address] Referring Physician Urology 05/14/23 Bonita Ovalles MD [address] [place] [address] Referring Physician Cardiology 05/14/23 documented as of this encounter
--- OUTSIDE RECORDS SUMMARY | 2025-01-09 11:17 | XMS_ITS | Encounter Summary ---
Author Organization [facility] Address [address] [place] [address] Phone Care Team Providers Care Operations Accountant Name Role Phone Trey Bowman DO Primary Care Provider [phone] Supa Reardon MD Primary Care Provider Encounter Details Date Type Department Care Team (Late st Contact Info) Description 2021 Orders Only [facility] LEGACY [address] [place] [address] Conversion, Onbase Social History Tobacco Use Types [...] Info) Description 03/22/2025 2:30 PM EDT Appointment [place] [address] [place] [phone] 07/26/2025 9:20 AM EST Office Visit [address] [phone] Bonita Ovalles MD 703 [facility] [address] [place] [address] Scheduled Orders Name Type Priority Associated Diagnoses Orde r Schedule OUTSIDE LAB SCAN Lab Ordered: 2021 documented as of this encounter Visit Diagnoses Not on filedocumented in this encounter Care Teams Operations Accountant Relationship Specialty Start Date End Date Trey Bowman DO [address] [place] [address] PCP - General 02/15/20 02/23/23 Supa Reardon MD [address] [place] [address] PCP - General 02/24/23 documented as of this encounter
--- OUTSIDE RECORDS SUMMARY | 2025-01-09 11:17 | XMS_ITS | Encounter Summary ---
Author Organization [facility] Address [address] [place] [address] Phone Care Team Providers Care M48 M60 Armor Crewman Name Role Phone Tery Bowman DO Primary Care Provider [phone] Supa Reardon MD Primary Care Provider Encounter Details Date Type Department Care Team (Late Contact Info) Description 04/16/2021 Orders Only [facility] [address] [place] [address] Conversion, Onbase Social History Tobacco Use Types [...] Info) Description 03/22/2025 2:30 PM EDT Appointment [address] [place] [address] 07/26/2025 9:20 AM EST Office Visit [address] [phone] Bonita Ovalles MD 703 [facility] [address], [address] [place] [address] Scheduled Orders Name Type Priority Associated Diagnoses Orde r Schedule OUTSIDE LAB SCAN Lab Ordered: 04/16/2021 documented as of this encounter Visit Diagnoses Not on filedocumented in this encounter Care Teams M48 M60 Armor Crewman Relationship Specialty Start Date End Date Trey Bowman DO [address] [place] [address] PCP - General 02/15/20 02/23/23 Supa Reardon MD [address] [place] [address] PCP - General 02/24/23 documented as of this encounter
--- OUTSIDE RECORDS SUMMARY | 2025-01-09 11:17 | XMS_ITS | Encounter Summary ---
Author Organization [facility] Address [address] [facility] [place] [address] Care Team Providers Care Silk Brusher Name Role Phone Supa Reardon MD Primary Care Provider [phone] Trey Bowman DO Unavailable [phone] Monica Hook MD Unavailable [phone] Jorje Ramirez MD Unavailable [phone] Bonita Ovalles MD Unavailable [phone] Supa Reardon MD Unavailable [phone] Encounter Details Date Type Department Care Team (Late Contact Info) Description 01/12/2023 Orders Only [facility] [place] [facility] [address] [facility] 230 [place] [address] A, Unknown Practice [address] [place], [place] [phone] Social History Tobacco Use Types Packs/Day Years [...] 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 Not on file documented as of this encounter Plan of Treatment Upcoming Encounters Date Type Department Care Team (Late Contact Info) Description 01/16/2025 1:00 PM EDT Office Visit [facility] [place] [facility] [address] [place] [address] documented as of this encounter Procedures Procedure Name Priority Date/Time Associated Diagnosis Comments US VENOUS DUPLEX BILATERAL Routine 01/09/2023 8:24 AM EDT documented in this encounter Results * US VENOUS DUPLEX BILATERAL (01/09/2023 8:24 AM EDT) Anatomical Region Laterality Modality Radiographic Bonnie ging us Unknown Practice A IMG XR PROCEDURES Final Resul t documented in this encounter Visit Diagnoses Not on filedocumented in this encounter Care Teams Silk Brusher Relationship Specialty Start Date End Date Supa Reardon MD [address] [place] [address] PCP - General Internal Medicine 11/04/22 Trey Bowman DO [address] [place] [address] PCP - ACO Reach 11/06/22 03/14/24 Supa Reardon MD [address] [place] [address] PCP - ACO Reach 03/15/24 Monica Hook MD [address] [place] [address] Referring Physician Dermatology 05/14/23 Jorje Ramirez MD [address] [place] [address] Referring Physician Urology 05/14/23 Bonita Ovalles MD 703 [facility] [address], [address] [place] [address] Referring Physician Cardiology 05/14/23 documented as of this encounter
[2025-01-09 11:57] LABS: Anion Gap 15.0; Blood Urea Nitrogen 22.0 mg/dL (7.0-18.0); Calcium 8.9 mg/dL (8.5-10.1); Carbon Dioxide 25.9 mmol/L (21.0-32.0); Chloride 103 mmol/L (98-107); Estimated GFR (African America >60 (>=60 mL/min/1.73m^2); Estimated GFR (Non-African Ame >60 (>=60 mL/min/1.73m^2); Glucose 99 mg/dL (74-106); Magnesium 1.4 mg/dL (1.8-2.4); Potassium 3.9 mmol/L (3.5-5.1); Sodium 140 mmol/L (136-145)
== END 2025-01-09 11:12 | disposition home or self-care (01) ==
LOC: LAB 11:12
PROVIDERS: PCP Internal Medicine; Visit Provider Nurse Practitioner Adult Health
DX: E83.42 Hypomagnesemia (principal); I50.22 Chronic systolic (congestive) heart failure
CPT/HCPCS: 36415; 80048; 83735

== ENCOUNTER 2025-01-13 00:33 | Outpatient (RCR) | payer MEDICARE, OTHER, SELFPAY | END 2025-02-09 12:37 | disposition home or self-care (01) | LOC: MM 00:33 | PROVIDERS: PCP Internal Medicine; Visit Provider Internal Medicine | DX: Z51.81 Encounter for therapeutic drug level monitoring (principal); Z79.01 Long term (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; I48.20 Chronic atrial fibrillation, unspecified; Z95.4 Presence of other heart-valve replacement | CPT/HCPCS: 85610; G0463 ==

== ENCOUNTER 2025-02-13 00:46 | Outpatient (RCR) | payer MEDICARE, OTHER, SELFPAY | END 2025-03-14 15:04 | disposition home or self-care (01) | LOC: MM 00:46 | PROVIDERS: PCP Internal Medicine; Visit Provider Internal Medicine | DX: Z51.81 Encounter for therapeutic drug level monitoring (principal); Z79.01 Long term (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; I48.20 Chronic atrial fibrillation, unspecified; Z95.2 Presence of prosthetic heart valve | CPT/HCPCS: 85610; G0463 ==

== ENCOUNTER 2025-03-02 13:17 | Outpatient (OUT) | payer MEDICARE, OTHER, SELFPAY ==
--- OUTSIDE RECORDS SUMMARY | 2025-03-02 13:20 | XMS_ITS | Encounter Summary ---
Author Organization [facility] Address [address] [place] [address] Phone Care Team Providers Care Wheel Blocker Name Role Phone Supa Reardon MD Primary Care Provider [phone] Encounter Details Date Type Department Care Team (Late Contact Info) Description 02/09/2024 Scanned Document [facility] [address] [place] [address] Scanning, Generic Provider Social History Tobacco Use [...] Care Team (Late Contact Info) Description 03/22/2025 2:15 PM EDT Appointment [place] [address] [place] [address] 07/26/2025 9:20 AM EST Office Visit [address] [place] [address] Bonita Ovalles MD [address] [place] [address] [address], [address] [place] [address] documented as of this encounter Procedures Procedure [...] documented as of this encounter Care Teams Wheel Blocker Relationship Specialty Start Date End Date Supa Reardon MD [address] [place] [address] PCP - General 02/24/23 documented as of this encounter
--- OUTSIDE RECORDS SUMMARY | 2025-03-02 13:20 | XMS_ITS | Encounter Summary ---
Author Organization [facility] Address [id number] [address] [place] [address] Care Team Providers Care Dental Service Technician Name Role Phone KorinaLauren carney BENJI-LEAD HANDLER Primary Care Provider +1- [phone] Encounter Details Date Type Department Care Team (Late st Contact Info) Description 04/26/2020 Telephone [facility] [address] [place] [address] Ángela Maldonado RN Social History Tobacco Use [...] on filedocumented in this encounter Care Teams Dental Service Technician Relationship Specialty Start Date End Date Lauren Hui APRN-KENYA [address] [place] [address] PCP - General Family Medicine 04/03/20 documented as of this encounter
--- OUTSIDE RECORDS SUMMARY | 2025-03-02 13:20 | XMS_ITS | Encounter Summary ---
Author Organization [facility] Address [address] [place] [address] Phone Care Team Providers Care Office Automation Clerk Name Role Phone Supa Reardon MD Primary Care Provider [phone]- [phone] Encounter Details Date Type Department Care Team (Late Contact Info) Description 06/06/2023 Scanned Document [facility] [address] [place] [address] Scanning, Generic Provider Social History [...] Info) Description 03/22/2025 2:15 PM EDT Appointment [address] [place] [address] 07/26/2025 9:20 AM EST Office Visit [address] [place] [address] Bonita Ovalles MD [address] [facility] [address], [address] [place] [address] documented as of this encounter Visit Diagnoses Not on filedocumented in this encounter Care Teams Office Automation Clerk Relationship Specialty Start Date End Date Supa Reardon MD [address] [place] [address] PCP - General 02/24/23 documented as of this encounter
--- OUTSIDE RECORDS SUMMARY | 2025-03-02 13:20 | XMS_ITS | Clinical Summary ---
Author Organization [facility] Address [id number] [address] [place] [address] Care Team Providers Care Senior Instrumentation Engineer Name Role Phone KorinaLauren carney BENJI-TRACK EQUIPMENT OPERATOR Primary Care Provider [phone]- [phone] Allergies Active Allergy Reactions Criticality Noted Date [...] file Insurance [employer] Care Teams Senior Instrumentation Engineer Relationship Specialty Start Date End Date Lauren Hui APRN-KENYA [address] [place] [address] PCP - General Family Medicine 04/03/20
--- OUTSIDE RECORDS SUMMARY | 2025-03-02 13:20 | XMS_ITS | Encounter Summary ---
Author Organization [facility] Address [address] [place] [address] Phone Care Team Providers Care Sales Agent Fire Insurance Name Role Phone Supa Reardon MD Primary Care Provider [phone] Encounter Details Date Type Department Care Team (Latest Contact Info) Description 06/20/2023 Transcribe Orders [facility] [place] [facility] [address] [place] [address] Tali Perla, WINDERMAN-SHELTER DIRECTOR [address], [facility] [address] [place] [phone] Transient cerebral ischemic attack, unspecified (Primary Dx) [...] Team (Late st Contact Info) Description 03/22/2025 2:15 PM EDT Appointment [address] [place] [address] 07/26/2025 9:20 AM EST Office Visit [address] [place] [address] Bonita Ovalles MD 703 [facility] [address], [address] [place] [address] documented as of this encounter Visit Diagnoses Diagnosis Transient cerebral ischemic attack, unspecified- Primary documented in this encounter Care Teams Sales Agent Fire Insurance Relationship Specialty Start Date End Date Supa Reardon MD [address] [place] [address] PCP - General 02/24/23 documented as of this encounter
--- OUTSIDE RECORDS SUMMARY | 2025-03-02 13:20 | XMS_ITS | Encounter Summary ---
Author Organization [facility] Address [address] [place] [address] Phone Care Team Providers Care Agricultural Sciences Professor Name Role Phone Supa Reardon MD Primary Care Provider [phone]- [phone] Encounter Details Date Type Department Care Team (Late Contact Info) Description 06/05/2023 Scanned Document [facility] [address] [place] [address] Scanning, Generic Provider Social History [...] Info) Description 03/22/2025 2:15 PM EDT Appointment [address] [place] [address] 07/26/2025 9:20 AM EST Office Visit [address] [place] [address] Bonita Ovalles MD [address] [facility] [address], [address] [place] [address] documented as of this encounter Visit Diagnoses Not on filedocumented in this encounter Care Teams Agricultural Sciences Professor Relationship Specialty Start Date End Date Supa Reardon MD [address] [place] [address] PCP - General 02/24/23 documented as of this encounter
--- OUTSIDE RECORDS SUMMARY | 2025-03-02 13:21 | XMS_ITS | Encounter Summary ---
Author Organization [facility] Address [address] [place] [address] Care Team Providers Care Bending Machine Set Up Operator Name Role Phone Supa Reardon MD Primary Care Provider [phone] Monica Hook MD Unavailable [phone] Jorje Rmairez MD Unavailable [phone] Bonita Ovalles MD Unavailable [phone] Supa Reardon MD Unavailable [phone] Encounter Details Date Type Department Care Team (Late st Contact Info) Description 10/21/2024 Orders Only [facility] [place] [facility] [address] [facility] [address] [place] [address] Unallocated, Noms Provider, [address] [place] [address] Social History Tobacco Use Types Packs/Day Years [...] 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 Not on file documented as of this encounter Plan of Treatment Upcoming Encounters Date Type Department Care Team (Late st Contact Info) Description 06/20/2025 1:30 PM EST Office Visit [facility] [place] [facility] [address] [place] [address] documented as of this encounter Procedures Procedure [...] documented as of this encounter Care Teams Bending Machine Set Up Operator Relationship Specialty Start Date End Date Supa Reardon MD [address] [place] [address] PCP - General Internal Medicine 11/04/22 uSpa Reardon MD [address] [place] [address] PCP - ACO Reach 03/15/24 Monica Hook MD [address] [place] [address] Referring Physician Dermatology 05/14/23 Jorje Ramirez MD [address] [facility] [place] [address] Referring Physician Urology 05/14/23 Bonita Ovalles MD 703 [facility] [address], [address] [place] [address] Referring Physician Cardiology 05/14/23 documented as of this encounter
--- OUTSIDE RECORDS SUMMARY | 2025-03-02 13:21 | XMS_ITS | Encounter Summary ---
Author Organization [facility] Address [address] [place] [address] Phone Care Team Providers Care Transportation Analyst Name Role Phone Trey Bowman DO Primary Care Provider [phone] Supa Reardon MD Primary Care Provider Encounter Details Date Type Department Care Team (Late st Contact Info) Description 04/04/2020 Orders Only [facility] [address] [place] [address] Conversion, Onbase Social History Tobacco Use Types [...] Info) Description 03/22/2025 2:15 PM EDT Appointment [place] [address] [place] [address] 07/26/2025 9:20 AM EST Office Visit [address] [phone] Bonita Ovalles MD 703 [facility] [address], [address] [place], [place] [phone] Scheduled Orders Name Type Priority Associated Diagnoses Orde r Schedule OUTSIDE LAB SCAN Lab Ordered: 04/04/2020 documented as of this encounter Visit Diagnoses Not on filedocumented in this encounter Care Teams Transportation Analyst Relationship Specialty Start Date End Date Trey Bowman DO [address] [place] [address] PCP - General 02/15/20 02/23/23 Supa Reardon MD [address] [place] [address] PCP - General 02/24/23 documented as of this encounter
--- OUTSIDE RECORDS SUMMARY | 2025-03-02 13:21 | XMS_ITS | Encounter Summary ---
Author Organization [facility] Address [address] [facility] [place] [address] Care Team Providers Care Sales Operations Analyst Name Role Phone Supa Reardon MD Primary Care Provider [phone] Trey Bowman DO Unavailable [phone] Monica Hook MD Unavailable [phone] Jorje Ramirez MD Unavailable [phone] Bonita Ovalles MD Unavailable [phone] Supa Reardon MD Unavailable [phone] Encounter Details Date Type Department Care Team (Late st Contact Info) Description 02/19/2024 Orders Only [facility] [address] [facility] [address] [place] [address] A, Unknown Practice [address] [place] [phone] Social History Tobacco Use Types Packs/Day Years [...] 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 on file documented as of this encounter Plan of Treatment Upcoming Encounters Date Type Department Care Team (Late st Contact Info) Description 06/20/2025 1:30 PM EST Office Visit [facility] [address] [place] [address] documented as of this encounter Procedures Procedure [...] on filedocumented in this encounter Care Teams Sales Operations Analyst Relationship Specialty Start Date End Date Supa Reardon MD [address] [place] [address] PCP - General Internal Medicine 11/04/22 Trey Bowman DO [address] [place] [address] PCP - ACO Reach 11/06/22 03/14/24 Supa Reardon MD [address] [place] [address] PCP - ACO Reach 03/15/24 Monica Hook MD [address] [place] [address] Referring Physician Dermatology 05/14/23 Jorje Ramirez MD [address] [facility] [facility] [place] [address] Referring Physician Urology 05/14/23 Bonita Ovalles MD 703 [facility] [address] [place] [address] Referring Physician Cardiology 05/14/23 documented as of this encounter
--- OUTSIDE RECORDS SUMMARY | 2025-03-02 13:21 | XMS_ITS | Encounter Summary ---
Author Organization [facility] Address [address] [place] [address] Phone Care Team Providers Care Gaming Worker Name Role Phone Trey Bowman DO Primary Care Provider [phone] Supa Reardon MD Primary Care Provider [phone] Encounter Details Date Type Department Care Team (Late st Contact Info) Description 02/06/2020 Orders Only [facility] [address] [place] [address] Conversion, Onbase Social History Tobacco Use Types [...] Info) Description 03/22/2025 2:15 PM EDT Appointment [place] [address] [place] [address] 07/26/2025 9:20 AM EST Office Visit [address] [phone] Bonita Ovalles MD 703 [facility] 2, [address] [place], [place] [phone] Scheduled Orders Name Type Priority Associated Diagnoses Orde r Schedule OUTSIDE LAB SCAN Lab Ordered: 02/06/2020 documented as of this encounter Visit Diagnoses Not on filedocumented in this encounter Care Teams Gaming Worker Relationship Specialty Start Date End Date Trey Bowman DO [address] [place] [address] PCP - General 02/15/20 02/23/23 Supa Reardon MD [address] [place] [address] PCP - General 02/24/23 documented as of this encounter
--- OUTSIDE RECORDS SUMMARY | 2025-03-02 13:21 | XMS_ITS | Encounter Summary ---
Author Organization [facility] Address [address] [place] [address] Phone Care Team Providers Care Jacquard Lace Weaver Name Role Phone Supa Reardon MD Primary Care Provider [phone]- [phone] Encounter Details Date Type Department Care Team (Late Contact Info) Description 02/27/2024 Scanned Document [facility] [address] [place] [address] Scanning, Generic Provider Social History Tobacco Use [...] Info) Description 03/22/2025 2:15 PM EDT Appointment [place] [address] [place] [address] 07/26/2025 9:20 AM EST Office Visit [address] [place] [address] Bonita Oavlles MD [address] [place] [address] 2, [facility] 250 [place] [address] documented as of this encounter Visit Diagnoses Not on filedocumented in this encounter Additional Health Concerns Assessment Noted Time A fall risk assessment has been complete d for the patient 09/29/2023 9:13 AM EDT documented as of this encounter Care Teams Jacquard Lace Weaver Relationship Specialty Start Date End Date Supa Reardon MD [address] [place] [address] PCP - General 02/24/23 documented as of this encounter
--- OUTSIDE RECORDS SUMMARY | 2025-03-02 13:21 | XMS_ITS | Encounter Summary ---
Author Organization [facility] Address [address] [place] [address] Phone Care Team Providers Care Vision Impaired Teacher Name Role Phone Supa Reardon MD Primary Care Provider [phone]- [phone] Encounter Details Date Type Department Care Team (Late Contact Info) Description 04/05/2024 Scanned Document [facility] [address] [place] [address] Scanning, Generic Provider Social History Tobacco Use [...] Info) Description 03/22/2025 2:15 PM EDT Appointment [address] [place] [address] 07/26/2025 9:20 AM EST Office Visit [address] [place] [address] Bonita Ovalles MD 3 [facility] [address], [address] [place] [address] documented as of this encounter Procedures Procedure [...] documented as of this encounter Care Teams Vision Impaired Teacher Relationship Specialty Start Date End Date Supa Reardon MD [address] [place] [address] PCP - General 02/24/23 documented as of this encounter
--- OUTSIDE RECORDS SUMMARY | 2025-03-02 13:21 | XMS_ITS | Encounter Summary ---
Author Organization [facility] Address [address] [facility] [place] [address] Care Team Providers Care Commercial Real Estate Agent Name Role Phone Supa Reardon MD Primary Care Provider [phone] Trey Bowman DO Unavailable [phone] Monica Hook MD Unavailable [phone] Jorje Ramirez MD Unavailable [phone] Bonita Ovalles MD Unavailable [phone] Supa Reardon MD Unavailable [phone] Encounter Details Date Type Department Care Team (Late st Contact Info) Description 02/09/2024 Orders Only [facility] [address] [facility] 230 [place] [address] A, Unknown Practice [address] [place] [phone] Social History Tobacco Use Types Packs/Day Years [...] 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 Not on file documented as of this encounter Plan of Treatment Upcoming Encounters Date Type Department Care Team (Late st Contact Info) Description 06/20/2025 1:30 PM EST Office Visit [facility] [place] [facility] [address] [place] [address] documented as of this encounter Procedures Procedure Name Priority Date/Time Associated Diagnosis Comments PROTHROMBIN TIME-INR Routine 02/09/2024 3:30 PM EDT documented in this encounter Results * Protime-INR (02/09/2024 3:30 PM EDT) Blood Venous blood specimen / Unknown us Unknown Practice A LAB BLOOD ORDERABLES Final Re sult documented in this encounter Visit Diagnoses Not on filedocumented in this encounter Care Teams Commercial Real Estate Agent Relationship Specialty Start Date End Date Supa Reardon MD [address] [place] [address] PCP - General Internal Medicine 11/04/22 Trey Bowman DO [address] [place] [address] PCP - ACO Reach 11/06/22 03/14/24 Supa Reardon MD [address] [place] [address] PCP - ACO Reach 03/15/24 Monica Hook MD [address] [place] [address] Referring Physician Dermatology 05/14/23 Jorje Ramirez MD [address] [address] Referring Physician Urology 05/14/23 Bonita Ovalles MD 703 [facility] 2, [place] [address] Referring Physician Cardiology 05/14/23 documented as of this encounter
--- OUTSIDE RECORDS SUMMARY | 2025-03-02 13:21 | XMS_ITS | Encounter Summary ---
Author Organization [facility] Address [address] [place] [address] Phone Care Team Providers Care Electrical Assistant Name Role Phone Trey Bowman DO Primary Care Provider [phone]- [phone] Supa Reardon MD Primary Care Provider Encounter Details Date Type Department Care Team (Late st Contact Info) Description 03/20/2020 Orders Only [facility] [address] [place] [address] Conversion, Onbase Social History Tobacco Use Types [...] Info) Description 03/22/2025 2:15 PM EDT Appointment [place] [address] [place] [address] 07/26/2025 9:20 AM EST Office Visit [address] [phone] Bonita Ovalles MD 703 [facility] [address], [address] [place], [place] [phone] Scheduled Orders Name Type Priority Associated Diagnoses Orde r Schedule OUTSIDE LAB SCAN Lab Ordered: 03/20/2020 documented as of this encounter Visit Diagnoses Not on filedocumented in this encounter Care Teams Electrical Assistant Relationship Specialty Start Date End Date Trey Bowman DO [address] [place] [address] PCP - General 02/15/20 02/23/23 Supa Reardon MD [address] [place] [address] PCP - General 02/24/23 documented as of this encounter
--- OUTSIDE RECORDS SUMMARY | 2025-03-02 13:21 | XMS_ITS | Encounter Summary ---
Author Organization [facility] Address [address] [place] [address] Phone Care Team Providers Care Software Sales Manager Name Role Phone Supa Reardon MD Primary Care Provider [phone] Encounter Details Date Type Department Care Team (Late Contact Info) Description 06/15/2024 Scanned Document [facility] [address] [place] [address] Scanning, Generic Provider Social History [...] Info) Description 03/22/2025 2:15 PM EDT Appointment [place] [address] [place] [address] 07/26/2025 9:20 AM EST Office Visit [address] [phone] Bonita Ovalles MD 703 [facility] [address] [place] [address] documented as of this encounter Visit Diagnoses Not on filedocumented in this encounter Additional Health Concerns Assessment Noted Time A fall risk assessment has been complete d for the patient 04/18/2024 2:08 PM EST documented as of this encounter Care Teams Software Sales Manager Relationship Specialty Start Date End Date Supa Reardon MD [address] [place] [address] PCP - General 02/24/23 documented as of this encounter
--- OUTSIDE RECORDS SUMMARY | 2025-03-02 13:21 | XMS_ITS | Encounter Summary ---
Author Organization [facility] Address [address] [place] [address] Phone Care Team Providers Care Real Estate Broker Associate Name Role Phone Supa Reardon MD Primary Care Provider [phone] Reason for Referral * Imaging (Routine) - Authorized Specialty Diagnoses / Procedures Referred By Kelvin t Referred To Contact Radiology Diagnoses Transient cerebral ischemic attack, unspecified Procedures MR brain wo IV contrast [facility] [address] [place] [address] Referral ID Status Reason Start Date Expiration Date Visits Requested Visits Authorized [id number] Authorized Perform Procedure 04/05/2025 1 1 Encounter Details Date Type Department Care Team (Latest Contact Info) Description 04/05/2024 Transcribe Orders [facility] [address] [place] [address] Tali Perla APRN-CNP [address], [address] [phone] Transient cerebral ischemic attack, unspecified (Primary Dx) [...] Info) Description 03/22/2025 2:15 PM EDT Appointment [facility] [address] [facility] [address] [place] [address] 07/26/2025 9:20 AM EST Office Visit [facility] [address] [facility] [address] [place] [address] Bonita Ovalles MD [address] [facility] [address], [address] [place] [address] Scheduled Orders Name Type Priority Associated Diagnoses [...] documented as of this encounter Care Teams Real Estate Broker Associate Relationship Specialty Start Date End Date Supa Reardon MD [address] [place] [phone] PCP - General 02/24/23 documented as of this encounter
--- OUTSIDE RECORDS SUMMARY | 2025-03-02 13:21 | XMS_ITS ---
Author Organization [facility] Address [address] [place] [address] Care Team Providers Care Sound Technician Supervisor Name Role Phone Supa Reardon MD Primary Care Provider [phone] Monica Hook MD Unavailable [phone] Jorje Ramirez MD Unavailable [phone] Bonita Ovalles MD Unavailable [phone] Supa Reardon MD Unavailable [phone] Chronic Care Management (CCM) Status:Enrolled (Active) Start date:10/30/2022 Enrollment date:10/30/2022 Overview 08/11/23, 3:09 PM - Xiomara Villafana LPN- Patient gives verbal consent to be enrolled in CCM Program andunderstands there could be a bill for this service. Case Team Name Relationship Phone Ewa Blum MA(Responsible Staff) Clinical Ad vocate [phone] Continued Care and Services Coordination
--- OUTSIDE RECORDS SUMMARY | 2025-03-02 13:21 | XMS_ITS | Encounter Summary ---
Author Organization [facility] Address [address] [place] [address] Phone Care Team Providers Care Analytics Manager Name Role Phone Supa Reardon MD Primary Care Provider [phone] Encounter Details Date Type Department Care Team (Late Contact Info) Description 08/03/2024 Scanned Document [facility] [address] [place] [address] Scanning, Generic Provider Social History [...] Info) Description 03/22/2025 2:15 PM EDT Appointment [place] [address] [place] [address] 07/26/2025 9:20 AM EST Office Visit [address] [place] [address] Bonita Ovalles MD [address] [place] [address] [address], [address] [place] [address] documented as of this encounter Procedures Procedure [...] documented as of this encounter Care Teams Analytics Manager Relationship Specialty Start Date End Date Supa Reardon MD [address] [place] [address] PCP - General 02/24/23 documented as of this encounter
--- OUTSIDE RECORDS SUMMARY | 2025-03-02 13:21 | XMS_ITS | Encounter Summary ---
Author Organization [facility] Address [address] [place] [address] Care Team Providers Care Band Aid Machine Operator Name Role Phone Supa Reardon MD Primary Care Provider [phone] Monica Hook MD Unavailable [phone] Jorje Ramirez MD Unavailable [phone] Bonita Ovalles MD Unavailable [phone] Supa Reardon MD Unavailable [phone] Encounter Details Date Type Department Care Team (Late st Contact Info) Description 04/08/2024 Abstract [facility] [address] [place] [address] Erasmo Bonner, DPM FACFAS [address] [place] [address] Social History Tobacco Use Types Packs/Day Years [...] 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 on file Not on file documented as of this encounter Plan of Treatment Upcoming Encounters Date Type Department Care Team (Late st Contact Info) Description 06/20/2025 1:30 PM EST Office Visit [facility] [address] [place] [address] documented as of this encounter Visit Diagnoses Not on filedocumented in this encounter Care Teams Band Aid Machine Operator Relationship Specialty Start Date End Date Supa Reardon MD [address] [place] [address] PCP - General Internal Medicine 11/04/22 Supa Reardon MD [address] [place] [address] PCP - ACO Reach 03/15/24 Monica Hook MD [address] [place] [address] Referring Physician Dermatology 05/14/23 Jorje Ramirez MD [address] [place] [address] Referring Physician Urology 05/14/23 Bonita Ovalles MD [facility], [address] [place] [address] Referring Physician Cardiology 05/14/23 documented as of this encounter
--- OUTSIDE RECORDS SUMMARY | 2025-03-02 13:21 | XMS_ITS | Encounter Summary ---
Author Organization [facility] Address [address] [place] [address] Phone Care Team Providers Care Papeterie Table Assembler Name Role Phone Supa Reardon MD Primary Care Provider [phone] Encounter Details Date Type Department Care Team (Late Contact Info) Description 06/29/2024 Scanned Document [facility] [address] [place] [address] Scanning, Generic Provider Social History [...] Info) Description 03/22/2025 2:15 PM EDT Appointment [place] [address] [place] [address] 07/26/2025 9:20 AM EST Office Visit [address] [place] [address] Bonita Ovalles MD [address] [place] [address] [address], [address] [place] [address] documented as of this encounter Procedures Procedure [...] documented as of this encounter Care Teams Papeterie Table Assembler Relationship Specialty Start Date End Date Supa Reardon MD [address] [place] [address] PCP - General 02/24/23 documented as of this encounter
--- OUTSIDE RECORDS SUMMARY | 2025-03-02 13:21 | XMS_ITS | Encounter Summary ---
Author Organization [facility] Address [address] [facility] [place] [address] Care Team Providers Care Wireless Field Technician Name Role Phone Supa Reardon MD Primary Care Provider [phone] Monica Hook MD Unavailable [phone] Jorje Ramirez MD Unavailable [phone] Bonita Ovalles MD Unavailable [phone] Supa Reardon MD Unavailable [phone] Encounter Details Date Type Department Care Team (Late st Contact Info) Description 12/08/2024 Orders Only [facility] [place] [facility] [address] [facility] [address] [place] [address] Unallocated, Noms Provider, [address] [place] [address] Social History Tobacco Use Types Packs/Day Years [...] 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 Not on file documented as of this encounter Plan of Treatment Upcoming Encounters Date Type Department Care Team (Late st Contact Info) Description 06/20/2025 1:30 PM EST Office Visit [facility] [place] [facility] [address] [place] [address] documented as of this encounter Procedures Procedure [...] documented as of this encounter Care Teams Wireless Field Technician Relationship Specialty Start Date End Date Supa Reardon MD [address] [place] [address] PCP - General Internal Medicine 11/04/22 Supa Reardon MD [address] [place] [address] PCP - ACO Reach 03/15/24 Monica Hook MD [address] [place] [address] Referring Physician Dermatology 05/14/23 Jorje Ramirez MD [address] [place] [address] Referring Physician Urology 05/14/23 Bonita Ovalles MD [address] [facility] 2, [address] [place] [address] Referring Physician Cardiology 05/14/23 documented as of this encounter
--- OUTSIDE RECORDS SUMMARY | 2025-03-02 13:21 | XMS_ITS | Encounter Summary ---
Author Organization [facility] Address [address] [facility] [place] [address] Care Team Providers Care Help Desk Manager Name Role Phone Supa Reardon MD Primary Care Provider [phone] Monica Hook MD Unavailable [phone] Jorje Ramirez MD Unavailable [phone] Bonita Ovalles MD Unavailable [phone] Supa Reardon MD Unavailable [phone] Encounter Details Date Type Department Care Team (Late st Contact Info) Description 10/05/2024 Orders Only [facility] [place] [facility] [address] [facility] [address] [place] [address] Buck Carrillo MD [address] [place] [address] Social History Tobacco Use Types Packs/Day Years [...] Date 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 Not on file Not on file documented as of this encounter Plan of Treatment Upcoming Encounters Date Type Department Care Team (Late st Contact Info) Description 06/20/2025 1:30 PM EST Office Visit [facility] [place] [facility] [address] [place] [address] documented as of this encounter Procedures Procedure [...] documented as of this encounter Care Teams Help Desk Manager Relationship Specialty Start Date End Date Supa Reardon MD [address] [place] [address] PCP - General Internal Medicine 11/04/22 Supa Reardon MD [address] [place] [address] PCP - ACO Reach 03/15/24 Monica Hook MD [address] [place] [address] Referring Physician Dermatology 05/14/23 Jorje Ramirez MD [address] [place] [address] Referring Physician Urology 05/14/23 Bonita Ovalles MD [address] [facility] 2, [address] [place] [address] Referring Physician Cardiology 05/14/23 documented as of this encounter
--- OUTSIDE RECORDS SUMMARY | 2025-03-02 13:21 | XMS_ITS | Encounter Summary ---
Author Organization [facility] Address [address] [facility] [place] [address] Care Team Providers Care Net Software Engineer Name Role Phone Supa Reardon MD Primary Care Provider [phone] Trey Bowman DO Unavailable [phone] Monica Hook MD Unavailable [phone] Jorje Ramirez MD Unavailable [phone] Bonita Ovalles MD Unavailable [phone] Supa Reardon MD Unavailable [phone] Encounter Details Date Type Department Care Team (Late st Contact Info) Description 10/15/2023 Orders Only [facility] [place] [facility] [address] [facility] [address] [place] [address] A, Unknown Practice [address] [place] [phone] Social History Tobacco Use Types Packs/Day Years [...] 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 Not on file documented as of this encounter Plan of Treatment Upcoming Encounters Date Type Department Care Team (Late st Contact Info) Description 06/20/2025 1:30 PM EST Office Visit [facility] [address] [place] [address] documented as of this encounter Visit Diagnoses Not on filedocumented in this encounter Care Teams Net Software Engineer Relationship Specialty Start Date End Date Supa Reardon MD [address] [place] [address] PCP - General Internal Medicine 11/04/22 Trey Bowman DO [address] [place] [address] PCP - ACO Reach 11/06/22 03/14/24 Supa Reardon MD [address] [place] [address] PCP - ACO Reach 03/15/24 Monica Hook MD [address] [place] [address] Referring Physician Dermatology 05/14/23 Jorje Ramirez MD [address] [place] [address] Referring Physician Urology 05/14/23 Bonita Ovalles MD [address] [facility], [address] [place] [address] Referring Physician Cardiology 05/14/23 documented as of this encounter
--- OUTSIDE RECORDS SUMMARY | 2025-03-02 13:21 | XMS_ITS | Encounter Summary ---
Author Organization [facility] Address [address] [place] [address] Phone Care Team Providers Care Inside B2B Sales Name Role Phone Supa Reardon MD Primary Care Provider [phone] Encounter Details Date Type Department Care Team (Late Contact Info) Description 10/20/2024 Scanned Document [facility] [address] [place] [address] Scanning, Generic Provider Social History [...] Info) Description 03/22/2025 2:15 PM EDT Appointment [place] [address] [place] [address] 07/26/2025 9:20 AM EST Office Visit [address] [place] [address] Bonita Ovalles MD [address] [place] [address] [address], [address] [place] [address] documented as of this encounter Procedures Procedure [...] documented as of this encounter Care Teams Inside B2B Sales Relationship Specialty Start Date End Date Supa Reardon MD [address] [place] [address] PCP - General 02/24/23 documented as of this encounter
--- OUTSIDE RECORDS SUMMARY | 2025-03-02 13:21 | XMS_ITS | Encounter Summary ---
Author Organization [facility] Address [address] [place] [address] Care Team Providers Care Rib Builder Name Role Phone Supa Reardon MD Primary Care Provider [phone] Monica Hook MD Unavailable [phone] Jorje Ramirez MD Unavailable [phone] Bonita Ovalles MD Unavailable [phone] Supa Reardon MD Unavailable [phone] Encounter Details Date Type Department Care Team (Late st Contact Info) Description 01/09/2025 Results Follow-Up [facility] Internal Medicine [address] [facility] [address] [place] [address] Moises Gomez, MEDICAL LAB SPECIALIST [address] [facility] [address] [place] [address] ALL BASIC METABOLIC PANEL, ALL MAGNESIUM Social History Tobacco Use Types Packs/Day Years [...] 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 I told him to call and let us know if he has any more problems with the diarrhea. He comes back in for a follow-up on 01/16. * Result Encounter Note - Moises Gomez NP - 01/09/2025 12:09 PM EDT Pt has an appt on the but his magnesium is low. Is he taking mag ox 400 mg daily? If so increase to bid. And if not taking resume 400 mg daily documented in this encounter Plan of Treatment Upcoming Encounters Date Type Department Care Team (Late st Contact Info) Description 06/20/2025 1:30 PM EST Office Visit [facility] [place] [facility] [address] [place] [address] documented as of this encounter Visit Diagnoses Not on filedocumented in this encounter Additional Health Concerns Assessment Noted Time PHQ-9 Depression Total Score: 0 06/13/20 24 2:00 PM EST documented as of this encounter Care Teams Rib Builder Relationship Specialty Start Date End Date Supa Reardon MD [address] [place] [address] PCP - General Internal Medicine 11/04/22 Supa Reardon MD [address] [place] [address] PCP - ACO Reach 03/15/24 Monica Hook MD [address] [place] [address] Referring Physician Dermatology 05/14/23 Jorje Ramirez MD [address] [facility] [place] [address] Referring Physician Urology 05/14/23 Bonita Ovalles MD 703 [facility] [address], [address] [place] [address] Referring Physician Cardiology 05/14/23 documented as of this encounter
--- OUTSIDE RECORDS SUMMARY | 2025-03-02 13:21 | XMS_ITS | Clinical Summary ---
Author Organization [facility] Address [address] [place] [address] Phone Care Team Providers Care Independent Contractor Name Role Phone Supa Reardon MD Primary Care Provider [phone] Allergies Active Allergy Reactions Criticality Noted Date [...] Take 1 tablet (40 mg) by mouth. 03/26/20 Active traMADol (Ultram) 50 mg tablet Take 1-2 tablets (50-100 mg) by mouth every 6 hours if needed. 02/27/20 Active warfarin (Coumadin) 5 mg tablet Take 2 tablets (10 mg) by mouth. Take as directed by [facility] 06/10/20 18 Active aspirin 81 mg EC tablet Take 1 tablet (81 mg) by mouth once daily. Active atorvastatin (Lipitor) 40 mg tabletIndications:Coron luigi artery disease, unspecified vessel or lesion type, unspecified whether angina present, unspecified whether [place] or transplanted heart,Pure hypercholesterolemia Take 1 tablet (40 mg) by mouth once daily. 90 tablet 3 5 12:02 PM EDT 10/18/19 25 2025 Active cephalexin (Keflex) 500 mg capsule Take 1 capsule (500 mg) by mouth every 12 hours. 12/02/19 Active fluticasone (Flonase) 50 mcg/actuation nasal spray Administer 2 sprays into each nostril once daily. 12/05/19 Active de-wtr-OH-vit M-nfmsjt-kpicfcz (PreserVision AREDS 2 Plus MV) 200 mcg-15 mcg- 5 mg-1 mg capsule Take 1 capsule by mouth once daily. Active losartan (Cozaar) 25 mg tabletIndications:Conge stive heart failure, NYHA class 2, unspecified congestive heart failure type,Essential (primary) hypertension Take 0.5 tablets (12.5 mg) by mouth once daily. decrease 45 tablet 3 12/13/19 25 2025 Active Active Problems Problem Noted Date Diagnosed Date Beta-blockers contraindicated 12/12/2024 Mixed hyperlipidemia 12/12/2024 [facility] (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 2024 Mitral regurgitation [...] Description 12/12/2024 3:50 PM EDT Office Visit [place] [id number] [address] Shay Ovalles MD Congestive heart failure, NYHA class 2, unspecified congestive heart failure type; Coronary artery disease involving [place] coronary artery of [place] heart without angina pectoris; Chronic atrial fibrillation (Multi); long term care phlebotomist (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; Essential (primary) hypertension; Mixed hyperlipidemia; Nonrheumatic aortic valve stenosis; Status post transcatheter aortic valve replacement; Nonrheumatic mitral valve regurgitation; PVD (peripheral vascular disease); Stage 2 chronic kidney disease; Venous insufficiency (chronic) (peripheral); Pulmonary hypertension (Multi); Former smoker; BMI 24.0-24.9, adult 12/12/2024 Travel 12/01/2024 Scanned Document [facility] [address] [place] [address] Scanning, Generic Provider from Last 3 Months Social History Tobacco [...] Info) Description 03/22/2025 2:15 PM EDT Appointment [facility] [address] [facility] [address] [place] [address] 07/26/2025 9:20 AM EST Office Visit [facility] [address] [place] [address] [address] [place] [address] Shay Ovalles MD [address] [facility] [address] [place] [address] Health Maintenance Due Date Last Done Comments Diabetes: Hemoglobin A1C 1935 Diabetes: Retinopathy Screening 1945 Zoster Vaccines (1 of 2) 1986 RSV High Risk: (Elderly (60+) or Population) (1 - 1-dose 75+ series) 2011 Creatinine Level 03/03/2021 03/03/2020, 02/24/2020 Potassium Level 03/03/2021 03/03/2020, 02/24/2020 Diabetes: Urine Protein Screening 11/01/2024 11/02/2023 Lipid Panel 01/21/2025 01/22/2024 COVID-19 Vaccine ( season) 2025 Influenza Vaccine (#1) 2025 , 05/14/2022, 03/28/2021, [...] Associated Diagnosis Comments OUTSIDE LAB SCAN 12/01/2024 TRANSTHORACIC ECHO (TTE) COMPLETE Routine 04/13/2024 2:24 PM EDT 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 Generic Provider Scanning OUTSIDE SCAN Final Result [...] Narrative SYNGO - 04/13/2024 4:44 PM EDT [facility] [address] [facility], [address], [place] [address] TRANSTHORACIC ECHOCARDIOGRAM REPORT Patient Name: FANI TAY Reading Physician: [id number] Shay Ovalles MD, [facility] Study Date: 04/13/2024 Ordering Provider: [id number] SHAY OVALLES MRN/PID: [id number] Fellow: Nurse: Date of /Age: 13 1935 / years Feeder Operator: Karly Lin RDCS, T Gender: M Additional Staff: Height: 175.26 cm Admit Date: Weight: 75.75 kg Admission Status: BSA / BMI: 1.91 m2 / 24.66 kg/m2 Department Location: [facility] Blood Pressure: 134 /76 mmHg Study Type: TRANSTHORACIC ECHO (TTE) COMPLETE Diagnosis/ICD: 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; 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, Atrial Fibrillation, CAD, CHF, COPD, Diabetes, HTN, Hyperlipidemia, 2/6 Systolic Murmur, Former Smoker, Pulmonary HTN, PVD, CKD-Stage II, Venous Insufficiency, Bladder and Prostate Cancer CPT Codes: Echo Complete w Full [id number] Study Detail: The following Echo studies were [...] mmHg PIEDV: 2.54 m/s PADP: 28.9 mmHg [id number] Shay Ovalles MD, FACC Electronically signed on 04/13/2024 at 4:44:51 PM Final Procedure Note Shay Ovalles MD - 04/13/2024 [facility] [address] [facility], [address], [place] [address] TRANSTHORACIC ECHOCARDIOGRAM REPORT Patient Name: FANI Elizabeth MAGGI Caldwell Physician: Meggan Ovalles MD,[facility] Study Date: 04/13/2024 Ordering Provider: EMGGAN OVALLES MRN/PID: [id number] Fellow: Nurse: Date of /Age: 13 1935 / 88 years Feeder Operator: Ngozi ANDRADE RVT Gender: M Additional Staff: Height: 175.26 cm Admit Date: Weight: 75.75 kg Admission Status: BSA / BMI: 1.91 m2 / 24.66 kg/m2 Department Location: [facility] Blood Pressure: 134 /76 mmHg Study Type: TRANSTHORACIC ECHO (TTE) COMPLETE Diagnosis/ICD: 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; 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, Atrial Fibrillation, CAD, CHF,COPD, Diabetes, HTN, Hyperlipidemia, 07/21 Systolic Murmur,Former Smoker, Pulmonary HTN, PVD, CKD-Stage II, VenousInsufficiency, Bladder and Prostate Cancer CPT Codes: Echo Complete w Full [id number] Study Detail: The following Echo studies were [...] mmHg PIEDV: 2.54 m/s PADP: 28.9 mmHg [id number] Shay Ovalles MD, FACC Electronically signed on 04/13/2024 at 4:44:51 PM Final us Shay Ovalles MD CV ECHO PROCEDURES Final Res ult SYNGO * (ABNORMAL) Renal Function Panel (03/03/2020 12:09 AM EDT) Pathologist [facility] Glucose 123(H) 74 - 99 mg/dL [facility] Sodium 140 136 - 145 mmol/L [facility] Potassium 3.5 3.5 - 5.3 mmol/L [facility] Chloride 110(H) 98 - 107 mmol/L [facility] Bicarbonate 21 21 - 32 mmol/L [facility] Anion Gap 13 10 - 20 mmol/L [facility] Urea Nitrogen 18 6 - 23 mg/dL [facility] Creatinine 0.70 0.50 - 1.30 mg/dL [facility] GLOMERULAR FILTRATION RATE-NON >60 >60 mL/min/1. 73m2 [facility] GLOMERULAR FILTRATION RATE- >60 >60 mL/min/1. 73m2 [facility] Comment: CALCULATIONS OF ESTIMATED GFR ARE PERFORMED USING THE MDRD STUDY EQUATION FOR THE IDMS-TRACEABLE CREATININE METHODS. CLIN CHEM 2007;53:766-72 Calcium 7.6(L) 8.6 - 10.6 mg/dL [facility] Phosphorus 2.5 2.5 - 4.9 mg/dL [facility] Comment: The performance characteristics of phosphorus testing in heparinized plasma have been validated by the individual laboratory site where testing is performed. Testing on heparinized plasma is not approved by the FDA; however, such approval is not necessary. Albumin 2.9(L) 3.4 - 5.0 g/dL [facility] 03/03/2020 12:0 9 AM EDT 03/03/2020 12:58 AM EDT Juan Dangelo IMPROVEMENT AUDITOR-HIGH FREQUENCY MILL OPERATOR LAB BLOOD ORDERABLES F inal Result [facility] from Last 3 Months or Most Recently Relevant to Health Maintenance Insurance MEDICARE PART A AND B [facility] MEDICARE SUPPLEMENT MEDICARE PART A AND B [facility] MEDICARE SUPPLEMENT Care Teams Independent Contractor Relationship Specialty Start Date End Date Supa Reardon MD [address] [place] [address] PCP - General 02/24/23
--- OUTSIDE RECORDS SUMMARY | 2025-03-02 13:21 | XMS_ITS | Encounter Summary ---
Author Organization [facility] Address [address] [place] [address] Phone Care Team Providers Care Obstetrics Tech Name Role Phone Supa Reardon MD Primary Care Provider [phone] Encounter Details Date Type Department Care Team (Late Contact Info) Description 06/02/2024 Scanned Document [facility] [address] [place] [address] Scanning, Generic Provider Social History [...] Info) Description 03/22/2025 2:15 PM EDT Appointment [place] [address] [place] [address] 07/26/2025 9:20 AM EST Office Visit [address] [phone] Bonita Ovalles MD [address] [facility] [address], [address] [place] [address] documented as of this encounter [...] documented as of this encounter Care Teams Obstetrics Tech Relationship Specialty Start Date End Date Supa Reardon MD [address] [place] [address] PCP - General 02/24/23 documented as of this encounter
--- OUTSIDE RECORDS SUMMARY | 2025-03-02 13:21 | XMS_ITS | Encounter Summary ---
Author Organization [facility] Address [address] [place] [address] Care Team Providers Care Research Test Engine Operator Name Role Phone Supa Reardon MD Primary Care Provider [phone] Monica Hook MD Unavailable Jorje Ramirez MD Unavailable [phone] Bonita Ovalles MD Unavailable [phone] Supa Reardon MD Unavailable [phone] Encounter Details Date Type Department Care Team (Late st Contact Info) Description 08/17/2024 Orders Only [facility] [address] [facility] [address] [place] [address] Jorje Ramirez MD [address] [place] [address] Social History Tobacco Use Types Packs/Day Years [...] Date 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 Not on file documented as of this encounter Plan of Treatment Upcoming Encounters Date Type Department Care Team (Late st Contact Info) Description 06/20/2025 1:30 PM EST Office Visit [facility] [place] [facility] [address] [place] [address] documented as of this encounter Procedures Procedure [...] documented as of this encounter Care Teams Research Test Engine Operator Relationship Specialty Start Date End Date Supa Reardon MD [address] [place] [address] PCP - General Internal Medicine 11/04/22 Supa Reardon MD [address] [place] [address] PCP - ACO Reach 03/15/24 Monica Hook MD [address] [place] [address] Referring Physician Dermatology 05/14/23 Jorje Ramirez MD [address] [place] [address] Referring Physician Urology 05/14/23 Bonita Ovalles MD [address] [place] [address] Referring Physician Cardiology 05/14/23 documented as of this encounter
--- OUTSIDE RECORDS SUMMARY | 2025-03-02 13:21 | XMS_ITS | Encounter Summary ---
Author Organization [facility] Address [address] [place] [address] Phone Care Team Providers Care Pipeline Systems Operator Name Role Phone Supa Reardon MD Primary Care Provider [phone] Encounter Details Date Type Department Care Team (Late Contact Info) Description 03/08/2024 Scanned Document [facility] [address] [place] [address] Scanning, Generic Provider Social History Tobacco Use [...] Info) Description 03/22/2025 2:15 PM EDT Appointment [place] [address] [place] [address] 07/26/2025 9:20 AM EST Office Visit [address] [place] [address] Bonita Ovalles MD [address] [place] [address] [address], [address] [place] [address] documented as of this encounter Procedures Procedure [...] documented as of this encounter Care Teams Pipeline Systems Operator Relationship Specialty Start Date End Date Supa Reardon MD [address] [place] [address] PCP - General 02/24/23 documented as of this encounter
--- OUTSIDE RECORDS SUMMARY | 2025-03-02 13:21 | XMS_ITS | Encounter Summary ---
Author Organization [facility] Address [address] [facility] [place] [address] Care Team Providers Care Humanities Professor Name Role Phone Supa Reardon MD Primary Care Provider [phone] Monica Hook MD Unavailable [phone] Jorje Ramirez MD Unavailable [phone] Bonita Ovalles MD Unavailable [phone] Supa Reardon MD Unavailable [phone] Reason for Visit * Reason Onset Date Comments Vertigo 02/17/2025 Encounter Details Date Type Department Care Team (Late st Contact Info) Description 02/17/2025 Telephone [facility] [place] [facility] [address] [place] [phone] Fernando Nascimento MA Vertigo Social History Tobacco Use Types Packs/Day Years Used Date Smoking Tobacco: Former Cigarettes Q uit: 06/15/2001 Smokeless Tobacco: Never Comments:Ex-heavy cigarettes smoker (20-30/day) Alcohol Use Standard Drinks/Week Comments Yes 14 (1 standard drink = 0.6 oz pure alcohol) .caffeine intake:Coffee, 3-4 cups per day. 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 * Telephone Encounter - Fernando Nascimento MA - 02/17/2025 10:13 AM EDT Jb from [facility] called and said she has been following the patient's home care for his wound care, but she said last night he started getting vertigo. She said she took is BP and it was within normal limits. She said he has had vertigo in the past. She wanted to know if the provider could send in meclizine. Please advise. documented in this encounter Plan of Treatment Upcoming Encounters Date Type Department Care Team (Late st Contact Info) Description 06/20/2025 1:30 PM EST Office Visit [facility] [place] [facility] [address] [place] [address] documented as of this encounter Visit Diagnoses Diagnosis Vertigo of central origin- Primary documented in this encounter Additional Health Concerns Assessment Noted Time PHQ-9 Depression Total Score: 0 06/13/20 24 2:00 PM EST documented as of this encounter Care Teams Humanities Professor Relationship Specialty Start Date End Date Supa Reardon MD [address] [place] [address] PCP - General Internal Medicine 11/04/22 Supa Reardon MD [address] [place] [address] PCP - ACO Reach 03/15/24 Monica Hook MD [address] [place] [address] Referring Physician Dermatology 05/14/23 Jorje Ramirez MD [address] [place] [address] Referring Physician Urology 05/14/23 Bonita Ovalles MD [address] [facility] [address], [address] [place] [address] Referring Physician Cardiology 05/14/23 documented as of this encounter
--- OUTSIDE RECORDS SUMMARY | 2025-03-02 13:21 | XMS_ITS | Encounter Summary ---
Author Organization [facility] Address [address] [place] [address] Phone Care Team Providers Care Napkin Machine Operator Name Role Phone Supa Reardon MD Primary Care Provider [phone] Encounter Details Date Type Department Care Team (Late Contact Info) Description 02/26/2024 Scanned Document [facility] [address] [place] [phone] Scanning, Generic Provider Social History Tobacco Use [...] Info) Description 03/22/2025 2:15 PM EDT Appointment [place] [address] [place] [phone] 07/26/2025 9:20 AM EST Office Visit [address] [place] [phone] Bonita Ovalles MD [address] [place] [address] 2, [facility] [address] [place] [address] documented as of this encounter Visit Diagnoses Not on filedocumented in this encounter Additional Health Concerns Assessment Noted Time A fall risk assessment has been complete d for the patient 09/29/2023 9:13 AM EDT documented as of this encounter Care Teams Napkin Machine Operator Relationship Specialty Start Date End Date Supa Reardon MD [address] [place] [address] PCP - General 02/24/23 documented as of this encounter
--- OUTSIDE RECORDS SUMMARY | 2025-03-02 13:21 | XMS_ITS | Encounter Summary ---
Author Organization [facility] Address [address] [facility] [place] [address] Care Team Providers Care Fast Foods Worker Name Role Phone Supa Reardon MD Primary Care Provider [phone] Monica Hook MD Unavailable [phone] Jorje Ramirez MD Unavailable [phone] Bonita Ovalles MD Unavailable [phone] Supa Reardon MD Unavailable [phone] Encounter Details Date Type Department Care Team (Late st Contact Info) Description 02/16/2025 Orders Only [facility] [place] [facility] [address] [facility] [address] [place] [address] Unallocated, Noms Provider, [address] [place] [address] Social History Tobacco Use Types Packs/Day Years [...] Date 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 file Not on file documented as of this encounter Plan of Treatment Upcoming Encounters Date Type Department Care Team (Late st Contact Info) Description 06/20/2025 1:30 PM EST Office Visit [facility] [place] [facility] [address] [place] [address] documented as of this encounter Procedures Procedure Name Priority Date/Time Associated Diagnosis Comments PROTHROMBIN TIME-INR Routine 02/16/2025 1:16 PM EDT documented in this encounter Results * Protime-INR (02/16/2025 1:16 PM EDT) Blood Venous blood specimen / Unknown us Noms Provider Unallocated LAB BLOOD ORDERABLE S Final Result documented in this encounter Visit Diagnoses Not on filedocumented in this encounter Additional Health Concerns Assessment Noted Time PHQ-9 Depression Total Score: 0 06/13/20 24 2:00 PM EST documented as of this encounter Care Teams Fast Foods Worker Relationship Specialty Start Date End Date Supa Reardon MD [address] [place] [address] PCP - General Internal Medicine 11/04/22 Supa Reardon MD [address] [place] [address] PCP - ACO Reach 03/15/24 Monica Hook MD [address] [place] [address] Referring Physician Dermatology 05/14/23 Jorje Ramirez MD [address] [place] [place] [address] Referring Physician Urology 05/14/23 Bonita Ovalles MD [address] [place] [address] Referring Physician Cardiology 05/14/23 documented as of this encounter
--- OUTSIDE RECORDS SUMMARY | 2025-03-02 13:21 | XMS_ITS | Clinical Summary ---
Author Organization [facility] Address [address] [place] [address] Care Team Providers Care Mold Finisher Name Role Phone Trey Bowman Primary Care [...] N ot on file 05/23/2020 Data from: https://[email or web address].medicine.[email or web address].edu/. Last address used for calculation Not on [...] Vaccine (1 - 1-dose 75+ series) 2011 Advance Directive Discussion 06/15/2024 Influenza Vaccine (#1) 2025 Insurance MEDICARE [facility] [place] [address] Care Teams Mold Finisher Relationship Specialty Start Date End Date Trey Bowman DO [address] [facility] [address] [place] [address] PCP - General Internal Medicine 02/23/14
--- OUTSIDE RECORDS SUMMARY | 2025-03-02 13:21 | XMS_ITS | Clinical Summary ---
Author Organization [facility] Address [address] [facility], [address] [place] [address] Care Team Providers Care Director Medicare Sales Name Role Phone Trey Bwoman DO Primary Care Provider Allergies Active Allergy [...] Gastro-esophageal reflux disease without esophag itis 06/10/2019 lining inserter (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 2018 Venous insufficiency [...] ID:Not on file Type:Not on file Address: [address] Care Teams Director Medicare Sales Relationship Specialty Start Date End Date Trey Bowman DO [address] [place] [address] PCP - General Internal Medicine 06/16/19
--- OUTSIDE RECORDS SUMMARY | 2025-03-02 13:21 | XMS_ITS | Encounter Summary ---
Author Organization [facility] Address [address] [place] [address] Phone Care Team Providers Care Charter Driver Name Role Phone Supa Reardon MD Primary Care Provider [phone] Encounter Details Date Type Department Care Team (Late Contact Info) Description 12/01/2024 Scanned Document [facility] [address] [place] [address] Scanning, Generic Provider Social History [...] Info) Description 03/22/2025 2:15 PM EDT Appointment [place] [address] [place] [phone] 07/26/2025 9:20 AM EST Office Visit [address] [place] [address] Bonita Ovalles MD [address] [place] [address] [address], [address] [place] [address] documented as of this encounter Procedures Procedure [...] documented as of this encounter Care Teams Charter Driver Relationship Specialty Start Date End Date Supa Reardon MD [address] [place] [address] PCP - General 02/24/23 documented as of this encounter
--- OUTSIDE RECORDS SUMMARY | 2025-03-02 13:21 | XMS_ITS | Encounter Summary ---
Author Organization [facility] Address [address] [place] [address] Phone Care Team Providers Care Aquatics Lifeguard Name Role Phone Trey Bowman DO Primary Care Provider [phone] Supa Reardon MD Primary Care Provider Encounter Details Date Type Department Care Team (Late st Contact Info) Description 01/14/2020 Orders Only [facility] [address] [place] [address] Conversion, Onbase Social History Tobacco Use Types [...] Info) Description 03/22/2025 2:15 PM EDT Appointment [place] [address] [place] [phone] 07/26/2025 9:20 AM EST Office Visit [address] [phone] Bonita Ovalles MD [address]03 [facility] [address] [place], [place] [phone] Scheduled Orders Name Type Priority Associated Diagnoses Orde r Schedule OUTSIDE LAB SCAN Lab Ordered: 01/14/2020 documented as of this encounter Visit Diagnoses Not on filedocumented in this encounter Care Teams Aquatics Lifeguard Relationship Specialty Start Date End Date Trey Bowman DO [address] [place] [address] PCP - General 02/15/20 02/23/23 Supa Reardon MD [address] [place] [address] PCP - General 02/24/23 documented as of this encounter
--- OUTSIDE RECORDS SUMMARY | 2025-03-02 13:21 | XMS_ITS | Encounter Summary ---
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 on file Not on file documented as of this encounter Plan of Treatment Upcoming Encounters Date Type Department Care Team ([facility] Contact Info) Description 06/20/2025 1:30 PM EST Office Visit [facility] [address] [facility] [address] [place] [phone] documented as of this encounter Procedures Procedure Name Priority Date/Time Associated Diagnosis Comments TRANSTHORACIC ECHO (TTE) COMPLETE 04/13/2024 1:47 PM EDT documented in this encounter Results * Transthoracic echo (TTE) complete (04/13/2024 1:47 PM EDT) Anatomical Region Laterality Modality Ultrasound 04/13/2024 1:47 PM EDT Narrative 04/13/2024 4:44 PM EDT [address], [address], [place] [address] TRANSTHORACIC ECHOCARDIOGRAM REPORT Patient Name: FANI TAY Reading Physician: [id number] Shay Ovalles MD, [facility] Study Date: 04/13/2024 Ordering Provider: [id number] SHAY OVALLES MRN/PID: [id number] Fellow: Nurse: Date of /Age: 12 1935 / 88 years Sales Exec: Karly Lin RDCS, T Gender: M Additional Staff: Height: 175.26 cm Admit Date: Weight: 75.75 kg Admission Status: BSA / BMI: 1.91 m2 / 24.66 kg/m2 Department Location: [facility] Blood Pressure: 134 /76 mmHg Study Type: TRANSTHORACIC ECHO (TTE) COMPLETE Diagnosis/ICD: 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; 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, Atrial Fibrillation, CAD, CHF, COPD, Diabetes, HTN, Hyperlipidemia, 2/6 Systolic Murmur, Former Smoker, Pulmonary HTN, PVD, CKD-Stage II, Venous Insufficiency, Bladder and Prostate Cancer CPT Codes: Echo Complete w Full [id number] Study Detail: The following Echo studies were [...] mmHg PIEDV: 2.54 m/s PADP: 28.9 mmHg [id number] Shay Ovalles MD, [facility] Electronically signed on 04/13/2024 at 4:44:51 PM Final Procedure Note Radiology, Radiologist, - 04/13/2024 [facility] [address] [place] [address], [address], [place] [address] TRANSTHORACIC ECHOCARDIOGRAM REPORT Patient Name: FANI Johnson MAGGI Reading Physician: Meggan Ovalles MD,[facility] Study Date: 04/13/2024 Ordering Provider: MEGGAN OVALLES MRN/PID: [id number] Fellow: Nurse: Date of /Age: 13 1935 / years Sales Exec: Ngozi ANDRADE Poornima Gender: M Additional Staff: Height: 175.26 cm Admit Date: Weight: 75.75 kg Admission Status: BSA / BMI: 1.91 m2 / 24.66 kg/m2 Department Location: [facility] Blood Pressure: 134 /76 mmHg Study Type: TRANSTHORACIC ECHO (TTE) COMPLETE Diagnosis/ICD: 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; 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, Atrial Fibrillation, CAD, CHF,COPD, Diabetes, HTN, Hyperlipidemia, 2/6 Systolic Murmur,Former Smoker, Pulmonary HTN, PVD, CKD-Stage II, VenousInsufficiency, Bladder and Prostate Cancer CPT Codes: Echo Complete w Full [id number] Study Detail: The following Echo studies were [...] mmHg PIEDV: 2.54 m/s PADP: 28.9 mmHg [id number] Shay Ovalles MD, FACC Electronically signed on 04/13/2024 at 4:44:51 PM Final us Generic External Data Provider CV ECHO PROCEDURE S Final Result documented in this encounter Visit Diagnoses Not on filedocumented in this encounter Care Teams Irrigation System Installer Relationship Specialty Start Date End Date Supa Reardon MD [address] [place] [address] PCP - General Internal Medicine 11/04/22 Supa Reardon MD [address] [place] [address] PCP - ACO Reach 03/15/24 Monica Hook MD [address] [place] [address] Referring Physician Dermatology 05/14/23 Jorje Ramirez MD [address] [place] [address] Referring Physician Urology 05/14/23 Shay Ovalles MD [address] [facility] [place] [address] Referring Physician Cardiology 05/14/23 documented as of this encounter
--- OUTSIDE RECORDS SUMMARY | 2025-03-02 13:21 | XMS_ITS | Clinical Summary ---
Author Organization [facility] Address [address] [place] [address] Care Team Providers Care Councillor Aboriginal Land Council Name Role Phone Supa Reardon MD Primary Care Provider [phone] Monica Hook MD Unavailable [phone] Jorje Ramirez MD Unavailable [phone] Bonita Ovalles MD Unavailable [phone] Supa Reardon MD Unavailable [phone] Allergies Active Allergy Reactions Criticality Noted [...] 40 MG tabletIndicatio ns:Coronary artery disease involving [place] coronary artery of [place] heart without angina pectoris Take 1 tablet (40 mg) by mouth in the morning. 60 tablet 07/20/19 24 Active Multiple Vitamins-Minera ls (PRESERVISION AREDS 2 PO) Take by mouth Acti ve warfarin (Coumadin) 5 MG tabletIndicatio ns:Coronary artery disease involving [place] heart without angina pectoris, unspecified vessel or lesion type Take 2 tablets (10 mg) by mouth at bedtime 180 tablet 3 03/09/20 24 Active albuterol HFA (Ventolin HFA) 90 mcg/act inhalerIndicati ons:Centrilobul ar emphysema (HCC) Inhale 2 puffs every 6 (six) hours if needed for wheezing or shortness of breath Do not use at same time as Tramadol 8 g 06/13/20 24 025 Active Additional Information Patient not taking.Reported on 02/01/2025 losartan (Cozaar) 25 MG tabletIndicatio ns:Congestive heart failure, NYHA class 2, unspecified congestive heart failure type (HCC) Take 1 tablet (25 mg) by mouth Daily 30 tablet 3 11/25/19 25 Active Additional Information Patient taking differently: 12.5 mgOral Daily, Reported on 02/01/2025 Zeaxanthin powder Take 1 capsule by mouth in the morning. Active fluticasone (Flonase) 50 MCG/ACT nasal spray 2 sprays in the morning. 12/05/19 25 Active Magnesium Oxide, Elemental, 400 MG tabletIndicatio ns:Hypomagnesem ia Take 1 tablet by mouth Daily 90 tablet 2 12/14/19 25 Active sertraline (Zoloft) 25 MG tabletIndicatio ns:Mixed anxiety and depressive disorder Take 1 tablet (25 mg) by mouth Daily 30 tablet 2 12/14/19 25 Active pantoprazole (ProtoNix) 40 MG EC tabletIndicatio ns:Gastroesopha geal reflux disease without esophagitis Take 1 tablet (40 mg) by mouth in the morning. Take before meals. 90 tablet 3 01/04/20 25 Active Nutritional Supplements (ADULT NUTRITIONAL SUPPLEMENT PO)Indications: Redi Mind Cognitive Supplement Take 1 tablet by mouth Daily (Redi Mind Cognitive Supplement) Active Melatonin 10 MG capsule Take 1 tablet by mouth at bedtime Active meclizine (Antivert) 12.5 MG tabletIndicatio ns:Vertigo of central origin Take 1 tablet (12.5 mg) by mouth 3 (three) times a day as needed for dizziness or nausea 30 tablet 02/18/20 25 026 Active traMADol (Ultram) 50 MG tabletIndicatio ns:Lumbosacral spondylosis without myelopathy Take 1 tablet (50 mg) by mouth every 8 (eight) hours if needed for severe pain 60 tablet 06/13/20 24 025 Discontinued predniSONE (Deltasone) 20 MG tabletIndicatio ns:Acute non-recurrent pansinusitis,Wh eeze Take two tablets once a day for 5 days 10 tablet 10/05/19 25 025 Discontinued cephalexin (Keflex) 500 MG capsule Take 500 mg by mouth every 12 (twelve) hours 12/02/19 25 025 Discontinued Citicoline 500 MG capsuleIndicati ons:Redi Mind Cognitive Supplement Take 1 tablet by mouth Daily 025 Discontinued Active Problems Problem Noted Date Diagnosed Date [...] bladder 01/28/2023 Coronary artery disease invo lving [place] coronary artery of [place] heart without angina pectoris 01/28/2023 Anemia 01/28/2023 [...] Encounters Date Type Department Care Team Description 02/17/2025 Telephone [facility] [address] [place] [address] [place], [place] Vertigo 02/16/2025 Orders Only [facility] [address] [place] [address] Unallocated, Jorge Lam MD 02/01/2025 3:30 PM EDT Office Visit [facility] [address] [place] [address] Moises Gomez, [place] Chronic systolic congestive heart failure, NYHA class 2 (HCC) (Primary Dx); Throat congestion; Moderate major depression (HCC) 02/01/2025 Bamboo flowsheet [facility] [address] [place] [address] Moises Gomez NP 02/01/2025 Travel 01/09/2025 Results Follow-Up [facility] [address] [place] [phone] Moises Gomez, [place] ALL BASIC METABOLIC PANEL, ALL MAGNESIUM 01/09/2025 Clinisync Result Encounter [facility] External Department Unsolicited Moises Gomez NP 01/03/2025 Refill [facility] [address] [place] [address] Ewa Blum MA Gastroesophageal reflux disease without esophagitis 12/13/2024 2:00 PM EDT Office Visit [facility] [address] [place] [address] Moises Gomez, [place] Chronic systolic congestive heart failure, NYHA class 2 (HCC) (Primary Dx); Coronary artery disease involving [place] coronary artery of [place] heart without angina pectoris ; Mixed hyperlipidemia ; Chronic atrial fibrillation (HCC); Centrilobular emphysema (HCC); Prediabetes; History of bladder cancer; History of gout; Hypomagnesemia; Mixed anxiety and depressive disorder; Degeneration of intervertebral disc of lumbar region with discogenic back pain and lower extremity pain 12/13/2024 Travel 12/08/2024 Orders Only [facility] [address] [place] [address] Unallocated, [facility] MD Carole 12/06/2024 Patient Outreach [facility] [address] [place] [address] Ewa Blum MA from Last 3 Months Immunizations Immunization Administration [...] Date Job End Date 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 [employer] Not on file Not on file Not on file Last Filed Vital Signs Vital Sign Reading Time Taken Comments Blood Pressure 124/74 02/01/2025 3:48 PM EDT Pulse 56 02/01/2025 3:48 PM EDT Temperature 36.3 C (97.3 F) 04/06/2024 2:40 PM EDT Respiratory Rate 16 10/04/2024 1:05 PM EDT Oxygen Saturation 95% 02/01/2025 3:48 PM EDT Inhaled Oxygen Concentration - - Weight 72.6 kg (160 lb 1.6 oz) 02/01/2025 3:48 P M EDT Height 175.3 cm (5' 9 ) 02/01/2025 3:48 PM EDT Body Mass Index 23.64 02/01/2025 3:48 PM EDT Plan of Treatment Upcoming Encounters Date Type Department Care Team (Late st Contact Info) Description 06/20/2025 1:30 PM EST Office Visit [facility] [address] [place] [address] Health Maintenance Due Date Last Done Comments Diabetes: Retinopathy Screening 1945 Diabetes: Hemoglobin A1C 02/02/2024 024, 10/28/2022, 06/13/2019, Additional history exists Diabetes: Urine Protein Screening 11/01/2024 11/02/2023, 12/07/2020, 06/11/2018 Influenza Vaccine (#1) 2025 3, 05/14/2022, 03/28/2021, Additional history exists Pneumococcal Vaccine: 65+ Years Completed 7, 10/02/2010 Procedures Procedure Name Priority Date/Time Associated Diagnosis Comments PROTHROMBIN TIME-INR Routine 02/16/2025 1:16 PM EDT ALL MAGNESIUM Routine 01/09/2025 11:22 AM EDT ALL BASIC METABOLIC PANEL Routine 01/09/2025 11:22 AM EDT PROTHROMBIN TIME-INR Routine 12/08/2024 2:30 PM EDT MICROALBUMIN / CREATININE URINE RATIO Routine 11/02/2023 8:39 AM EDT Pre-diabetes HEMOGLOBIN A1C WITH EAG Routine 11/02/2023 8:39 AM EDT Pre-diabetes from Last 3 Months or Most Recently Relevant to Health Maintenance Results * Protime-INR (02/16/2025 1:16 PM EDT) Only the most recent of2 resultswithin the time period is included. Blood Venous blood specimen / Unknown us [facility] Provider Unallocated MD LAB BLOOD ORDERABLE S Final Result * (ABNORMAL) ALL MAGNESIUM (01/09/2025 11:22 AM EDT) MAGNESIUM 1.4(L) 1.8 - 2.4 mg/dL [facility] 01/09/2025 11:2 2 AM EDT 01/09/2025 11:23 AM EDT Narrative [facility] - 01/09/2025 12:01 PM EDT us Moises Gomez STEEL ENGRAVER [facility] Final Result [facility] TB * (ABNORMAL) ALL BASIC METABOLIC PANEL (01/09/2025 11:22 AM EDT) SODIUM 140 136 - 145 mmol/L [facility] POTASSIUM 3.9 3.5 - 5.1 mmol/L [facility] CHLORIDE 103 98 - 107 mmol/L [facility] CARBON DIOXIDE 25.9 21.0 - 32.0 mmol/L [facility] ANION GAP 15.0 [facility] GLUCOSE 99 74 - 106 mg/dL [facility] BLOOD UREA NITROGEN 22.0(H) 7.0 - 18.0 mg/dL [facility] CREATININE 0.81 0.70 - 1.30 mg/dL [facility] TB[facility] EGFR-AF ANDORRAN >60 >=60 mL/min/1.7 3m 2 TBH TBH EGFR-NON AF ANDORRAN >60 >=60 mL/min/1.7 3m 2 [facility] BUN CREATININE RATIO 27.2 [facility] CALCIUM 8.9 8.5 - 10.1 mg/dL [facility] 01/09/2025 11:2 2 AM EDT 01/09/2025 11:23 AM EDT Narrative [facility] - 01/09/2025 12:01 PM EDT us Moises Gomez STEEL ENGRAVER [facility] Final Result [facility] * Hemoglobin a1c with eag (11/02/2023 8:39 AM EDT) Hemoglobin A1C 5.6 <5.7 % of total Hgb [facility] Comment: For the purpose of screening for the presence of diabetes: <5.7% Consistent with the absence of diabetes 5.7-6.4% Consistent with increased risk for diabetes (prediabetes) > or =6.5% Consistent with diabetes This assay result is consistent with a decreased risk of diabetes. Currently, no consensus exists regarding use of hemoglobin A1c for diagnosis of diabetes in children. According to [place] Diabetes Association (ADA) guidelines, hemoglobin A1c <7.0% represents optimal control in non- diabetic patients. Different metrics may apply to specific patient populations. Standards of Medical Care in Diabetes(ADA). EAG (MG/DL) 114 mg/dL [facility] EAG (MMOL/L) 6.3 mmol/L [facility] Comment: This test was performed on the [employer] c503 platform. Effective 06/01/23, a change in test platforms from the Gray Sheet [employer] Worker to the [employer] c503 may have shifted HbA1c results compared to historical results. Based on laboratory validation testing conducted at [facility], the Grupo platform relative to the Gray [...] AM EDT 11/02/2023 8:39 AM EDT Narrative [facility] - 11/03/2023 10:12 AM EDT FASTING:YES FASTING: YES Resulting Agency Comment Performing Organization Information Site ID: QPT Name: [facility] Address: [address] [place] [address], [address] [place] [phone] Director: Jonh Cid MD Zandra MAYERS LAB BLOOD ORDERABLES Final R esult [facility] * Microalbumin / creatinine urine ratio [...] Performing Organization Information Site ID: QPT Name: [facility] Address: [address] [place] [address], [address] [place] [phone] Director: Jonh Cid MD Zandra MAYERS LAB URINE ORDERABLES Final R esult [facility] from Last 3 Months or Most Recently Relevant to Health Maintenance Insurance [employer] [place] Care Teams Councillor Aboriginal Land Council Relationship Specialty Start Date End Date Supa Reardon MD [address] [place] [address] PCP - General Internal Medicine 11/04/22 Supa Reardon MD [address] [place] [address] PCP - ACO Reach 03/15/24 Monica Hook MD [address] [place] [address] Referring Physician Dermatology 05/14/23 Jorje Ramirez MD [address] [facility] [place] [address] Referring Physician Urology 05/14/23 Bonita Ovalles MD [address] [facility] [address] [place] [address] Referring Physician Cardiology 05/14/23
--- OUTSIDE RECORDS SUMMARY | 2025-03-02 13:21 | XMS_ITS | Encounter Summary ---
Author Organization [facility] Address [address] [place] [address] Phone Care Team Providers Care Motorized Squad Sergeant Name Role Phone Supa Reardon MD Primary Care Provider [phone] Encounter Details Date Type Department Care Team (Late Contact Info) Description 09/27/2024 Scanned Document [facility] [address] [place] [address] Scanning, Generic Provider Social History [...] Info) Description 03/22/2025 2:15 PM EDT Appointment [place] [address] [place] [address] 07/26/2025 9:20 AM EST Office Visit [address] [place] [phone] Bonita Ovalles MD [address] [place] [address] [address] [place] [address] documented as of this encounter Procedures Procedure [...] documented as of this encounter Care Teams Motorized Squad Sergeant Relationship Specialty Start Date End Date Supa Reardon MD [address] [place] [phone] PCP - General 02/24/23 documented as of this encounter
--- OUTSIDE RECORDS SUMMARY | 2025-03-02 13:22 | XMS_ITS | Encounter Summary ---
Author Organization [facility] Address [address] [place] [address] Phone Care Team Providers Care Senior Technical Specialist Name Role Phone Trey Bowman DO Primary Care Provider [phone] Supa Reardon MD Primary Care Provider Encounter Details Date Type Department Care Team (Late Contact Info) Description 06/13/2021 Orders Only [facility] [address] [place] [address] Conversion, Onbase Social History Tobacco Use Types [...] Info) Description 03/22/2025 2:15 PM EDT Appointment [place] [address] [place] [address] 07/26/2025 9:20 AM EST Office Visit [address] [phone] Bonita Ovalles MD [address] [facility] [address] [place], [place] [phone] Scheduled Orders Name Type Priority Associated Diagnoses Orde r Schedule OUTSIDE LAB SCAN Lab Ordered: 06/13/2021 documented as of this encounter Visit Diagnoses Not on filedocumented in this encounter Care Teams Senior Technical Specialist Relationship Specialty Start Date End Date Trey Bowman DO [address] [place] [address] PCP - General 02/15/20 02/23/23 Supa Reardon MD [address] [place] [address] PCP - General 02/24/23 documented as of this encounter
--- OUTSIDE RECORDS SUMMARY | 2025-03-02 13:22 | XMS_ITS | Encounter Summary ---
Author Organization [facility] Address [address] [place] [address] Phone Care Team Providers Care Automotive Technology Instructor Name Role Phone Trey Bowman DO Primary Care Provider [phone] Supa Reardon MD Primary Care Provider Encounter Details Date Type Department Care Team (Late Contact Info) Description 01/17/2021 Orders Only [facility] [address] [place] [address] Conversion, Onbase Social History Tobacco Use Types [...] Info) Description 03/22/2025 2:15 PM EDT Appointment [place] [address] [place] [phone] 07/26/2025 9:20 AM EST Office Visit [address] [phone] Bonita Ovalles MD 703 [facility] [address] [place], [place] [phone] Scheduled Orders Name Type Priority Associated Diagnoses Orde r Schedule OUTSIDE LAB SCAN Lab Ordered: 01/17/2021 documented as of this encounter Visit Diagnoses Not on filedocumented in this encounter Care Teams Automotive Technology Instructor Relationship Specialty Start Date End Date Trey Bowman DO [address] [place] [address] PCP - General 02/15/20 02/23/23 Supa Reardon MD [address] [place] [address] PCP - General 02/24/23 documented as of this encounter
--- OUTSIDE RECORDS SUMMARY | 2025-03-02 13:22 | XMS_ITS | Encounter Summary ---
Author Organization [facility] Address [address] [place] [address] Phone Care Team Providers Care Heavy Mobile Equipment Repairer Name Role Phone Trey Bowman DO Primary Care Provider [phone] Supa Reardon MD Primary Care Provider Encounter Details Date Type Department Care Team (Late Contact Info) Description 07/17/2020 Orders Only [facility] [address] [place] [address] Conversion, Onbase Social History Tobacco Use Types [...] Info) Description 03/22/2025 2:15 PM EDT Appointment [place] [address] [place] [phone] 07/26/2025 9:20 AM EST Office Visit [address] [phone] Bonita Ovalles MD [address] [facility] [address] [place], [place] [phone] Scheduled Orders Name Type Priority Associated Diagnoses Orde r Schedule OUTSIDE LAB SCAN Lab Ordered: 07/17/2020 documented as of this encounter Visit Diagnoses Not on filedocumented in this encounter Care Teams Heavy Mobile Equipment Repairer Relationship Specialty Start Date End Date Trey Bowman DO [address] [place] [address] PCP - General 02/15/20 02/23/23 Supa Reardon MD [address] [place] [address] PCP - General 02/24/23 documented as of this encounter
--- OUTSIDE RECORDS SUMMARY | 2025-03-02 13:22 | XMS_ITS | Encounter Summary ---
Author Organization [facility] Address [address] [place] [address] Phone Care Team Providers Care Settlement Agent Name Role Phone Trey Bowman DO Primary Care Provider [phone] Supa Reardon MD Primary Care Provider Encounter Details Date Type Department Care Team (Late Contact Info) Description 11/27/2020 Orders Only [facility] [address] [place] [address] Conversion, Onbase Social History Tobacco Use Types [...] Info) Description 03/22/2025 2:15 PM EDT Appointment [place] [address] [place] [address] 07/26/2025 9:20 AM EST Office Visit [address] [phone] Bonita Ovalles MD 703 [facility] [address] [place], [place] [phone] Scheduled Orders Name Type Priority Associated Diagnoses Orde r Schedule OUTSIDE LAB SCAN Lab Ordered: 11/27/2020 documented as of this encounter Visit Diagnoses Not on filedocumented in this encounter Care Teams Settlement Agent Relationship Specialty Start Date End Date Trey Bowman DO [address] [place] [address] PCP - General 02/15/20 02/23/23 Supa Reardon MD [address] [place] [address] PCP - General 02/24/23 documented as of this encounter
--- OUTSIDE RECORDS SUMMARY | 2025-03-02 13:22 | XMS_ITS | Encounter Summary ---
Author Organization [facility] Address [address] [place] [address] Phone Care Team Providers Care Consumer Lending Manager Name Role Phone Trey Bowman DO Primary Care Provider [phone]- [phone] Supa Reardon MD Primary Care Provider Encounter Details Date Type Department Care Team (Late st Contact Info) Description 02/28/2020 Orders Only [facility]Y [address] [place] [address] Conversion, Onbase Social History Tobacco Use Types [...] Info) Description 03/22/2025 2:15 PM EDT Appointment [place] [place] [address] 07/26/2025 9:20 AM EST Office Visit [address] [phone] Bonita Ovalles MD 703 [facility] [address] [place], [place] [address] Scheduled Orders Name Type Priority Associated Diagnoses Orde r Schedule OUTSIDE LAB SCAN Lab Ordered: 02/28/2020 OUTSIDE LAB SCAN Lab Ordered: 02/28/2020 documented as of this encounter Visit Diagnoses Not on filedocumented in this encounter Care Teams Consumer Lending Manager Relationship Specialty Start Date End Date Trey Bowman DO [address] [place] [address] PCP - General 02/15/20 02/23/23 Supa Reardon MD [address] [place] [address] PCP - General 02/24/23 documented as of this encounter
--- OUTSIDE RECORDS SUMMARY | 2025-03-02 13:22 | XMS_ITS | Encounter Summary ---
Author Organization [facility] Address [address] [place] [address] Phone Care Team Providers Care Derrick Hand Name Role Phone Trey Bowman DO Primary Care Provider [phone]- [phone] Supa Reardon MD Primary Care Provider Encounter Details Date Type Department Care Team (Late Contact Info) Description 12/27/2020 Orders Only [facility] LEGACY [address] [place] [address] Conversion, Onbase Social History Tobacco Use Types [...] Info) Description 03/22/2025 2:15 PM EDT Appointment [place] [address] [place] [address] 07/26/2025 9:20 AM EST Office Visit [address] [phone] Bonita Ovalles MD 703 [facility] [address], [address] [place], [place] [phone] Scheduled Orders Name Type Priority Associated Diagnoses Orde r Schedule OUTSIDE LAB SCAN Lab Ordered: 12/27/2020 documented as of this encounter Visit Diagnoses Not on filedocumented in this encounter Care Teams Derrick Hand Relationship Specialty Start Date End Date Trey Bowman DO [address] [place] [address] PCP - General 02/15/20 02/23/23 Supa Reardon MD [address] [place] [address] PCP - General 02/24/23 documented as of this encounter
--- OUTSIDE RECORDS SUMMARY | 2025-03-02 13:22 | XMS_ITS | Encounter Summary ---
Author Organization [facility] Address [address] [place] [address] Phone Care Team Providers Care State Farm Agent Name Role Phone Trey Bowman DO Primary Care Provider [phone]- [phone] Supa Reardon MD Primary Care Provider Encounter Details Date Type Department Care Team (Late st Contact Info) Description 06/14/2020 Orders Only [facility] LEGACY [address] [place] [address] Conversion, Onbase Social History Tobacco Use Types [...] Info) Description 03/22/2025 2:15 PM EDT Appointment [place] [address] [place] [address] 07/26/2025 9:20 AM EST Office Visit [address] [phone] Bonita Ovalles MD 703 [facility] [address], [address] [place], [place] [phone] Scheduled Orders Name Type Priority Associated Diagnoses Orde r Schedule OUTSIDE LAB SCAN Lab Ordered: 06/14/2020 documented as of this encounter Visit Diagnoses Not on filedocumented in this encounter Care Teams State Farm Agent Relationship Specialty Start Date End Date Trey Bowman DO [address] [place] [address] PCP - General 02/15/20 02/23/23 Supa Reardon MD [address] [place] [address] PCP - General 02/24/23 documented as of this encounter
--- OUTSIDE RECORDS SUMMARY | 2025-03-02 13:22 | XMS_ITS | Encounter Summary ---
Author Organization [facility] Address [address] [place] [address] Phone Care Team Providers Care Cosmetology Teacher Name Role Phone Trey Bowman DO Primary Care Provider [phone]- [phone] Supa Reardon MD Primary Care Provider Encounter Details Date Type Department Care Team (Late Contact Info) Description 04/15/2022 Orders Only [facility] LEGACY [address] [place] [address] Conversion, Onbase Social History Tobacco Use Types [...] Info) Description 03/22/2025 2:15 PM EDT Appointment [place] [address] [place] [address] 07/26/2025 9:20 AM EST Office Visit [address] [phone] Bonita Ovalles MD 703 [facility] [address], [address] [place], [place] [phone] Scheduled Orders Name Type Priority Associated Diagnoses Orde r Schedule OUTSIDE LAB SCAN Lab Ordered: 04/15/2022 documented as of this encounter Visit Diagnoses Not on filedocumented in this encounter Care Teams Cosmetology Teacher Relationship Specialty Start Date End Date Trey Bowman DO [address] [place] [address] PCP - General 02/15/20 02/23/23 Supa Reardon MD [address] [place] [address] PCP - General 02/24/23 documented as of this encounter
--- OUTSIDE RECORDS SUMMARY | 2025-03-02 13:22 | XMS_ITS | Encounter Summary ---
Author Organization [facility] Address [address] [place] [address] Phone Care Team Providers Care Professor Of Visual Arts Name Role Phone Trey Bowman DO Primary Care Provider [phone]- [phone] Supa Reardon MD Primary Care Provider Encounter Details Date Type Department Care Team (Late Contact Info) Description 04/16/2021 Orders Only [facility] LEGACY [address] [place] [address] Conversion, Onbase Social History Tobacco Use Types [...] 03/22/2025 2:15 PM EDT Appointment [place] [address] [place] [address] 07/26/2025 9:20 AM EST Office Visit [address] [phone] Bonita Ovalles MD 703 [facility] [address] [place], [place] [phone] Scheduled Orders Name Type Priority Associated Diagnoses Orde r Schedule OUTSIDE LAB SCAN Lab Ordered: 04/16/2021 documented as of this encounter Visit Diagnoses Not on filedocumented in this encounter Care Teams Professor Of Visual Arts Relationship Specialty Start Date End Date Trey Bowman DO [address] [place] [address] PCP - General 02/15/20 02/23/23 Supa Reardon MD [address] [place] [address] PCP - General 02/24/23 documented as of this encounter
--- OUTSIDE RECORDS SUMMARY | 2025-03-02 13:22 | XMS_ITS | Encounter Summary ---
Author Organization [facility] Address [address] [place] [address] Phone Care Team Providers Care Information Security Systems Instructor Name Role Phone Trey Bowman DO Primary Care Provider [phone]- [phone] Supa Reardon MD Primary Care Provider Encounter Details Date Type Department Care Team (Late Contact Info) Description 02/07/2021 Orders Only [facility] LEGACY [address] [place] [address] Conversion, Onbase Social History Tobacco Use Types [...] Info) Description 03/22/2025 2:15 PM EDT Appointment [place] [address] [place] [address] 07/26/2025 9:20 AM EST Office Visit [address] [phone] Bonita Ovalles MD 703 [facility] 2, [address] [place], [place] [address] Scheduled Orders Name Type Priority Associated Diagnoses Orde r Schedule OUTSIDE LAB SCAN Lab Ordered: 02/07/2021 documented as of this encounter Visit Diagnoses Not on filedocumented in this encounter Care Teams Information Security Systems Instructor Relationship Specialty Start Date End Date Trey Bowman DO [address] [place] [address] PCP - General 02/15/20 02/23/23 Supa Reardon MD [address] [place] [address] PCP - General 02/24/23 documented as of this encounter
--- OUTSIDE RECORDS SUMMARY | 2025-03-02 13:22 | XMS_ITS | Encounter Summary ---
Author Organization [facility] Address [address] [place] [address] Phone Care Team Providers Care Turnstile Collector Name Role Phone Trey Bowman DO Primary Care Provider Supa Reardon MD Primary Care Provider Encounter Details Date Type Department Care Team (Late st Contact Info) Description 2021 Orders Only [facility] LEGACY [address] [place] [address] Conversion, Onbase Social History Tobacco Use Types [...] Info) Description 03/22/2025 2:15 PM EDT Appointment [place] [address] [place] [address] 07/26/2025 9:20 AM EST Office Visit [address] [phone] Bonita Ovalles MD 703 [employer] [address] [place], [place] [address] Scheduled Orders Name Type Priority Associated Diagnoses Orde r Schedule OUTSIDE LAB SCAN Lab Ordered: 2021 documented as of this encounter Visit Diagnoses Not on filedocumented in this encounter Care Teams Turnstile Collector Relationship Specialty Start Date End Date Trey Bowman DO [address] [place] [address] PCP - General 02/15/20 02/23/23 Supa Reardon MD [address] [place] [address] PCP - General 02/24/23 documented as of this encounter
--- OUTSIDE RECORDS SUMMARY | 2025-03-02 13:22 | XMS_ITS | Encounter Summary ---
Author Organization [facility] Address [address] [place] [address] Phone Care Team Providers Care Storage Management Consultant Name Role Phone Trey Bowman DO Primary Care Provider [phone]- [phone] Supa Reardon MD Primary Care Provider Encounter Details Date Type Department Care Team (Late Contact Info) Description 11/25/[address] [facility] LEGACY [address] [place] [address] Conversion, Onbase Social History Tobacco Use Types [...] Info) Description 03/22/2025 2:15 PM EDT Appointment [place] [address] [place] [address] 07/26/2025 9:20 AM EST Office Visit [address] [phone] Bonita Ovalles MD 703 [facility] [address], [address] [place], [place] [address] Scheduled Orders Name Type Priority Associated Diagnoses Orde r Schedule OUTSIDE LAB SCAN Lab Ordered: 11/25/2022 documented as of this encounter Visit Diagnoses Not on filedocumented in this encounter Care Teams Storage Management Consultant Relationship Specialty Start Date End Date Trey Bowman DO [address] [place] [address] PCP - General 02/15/20 02/23/23 Supa Reardon MD [address] [place] [address] PCP - General 02/24/23 documented as of this encounter
--- OUTSIDE RECORDS SUMMARY | 2025-03-02 13:22 | XMS_ITS | Encounter Summary ---
Author Organization [facility] Address [address] [place] [address] Phone Care Team Providers Care Sports Internship Name Role Phone Trey Bowman DO Primary Care Provider [phone]- [phone] Supa Reardon MD Primary Care Provider Encounter Details Date Type Department Care Team (Late Contact Info) Description 10/23/2020 Orders Only [facility] LEGACY [address] [place] [address] Conversion, Onbase Social History Tobacco Use Types [...] 03/22/2025 2:15 PM EDT Appointment [place] [address] [place] [address] 07/26/2025 9:20 AM EST Office Visit [address] [phone] Bonita Ovalles MD 703 [facility] 2, [address] [place], [place] [address] Scheduled Orders Name Type Priority Associated Diagnoses Orde r Schedule OUTSIDE LAB SCAN Lab Ordered: 10/23/2020 documented as of this encounter Visit Diagnoses Not on filedocumented in this encounter Care Teams Sports Internship Relationship Specialty Start Date End Date Trey Bowman DO [address] [place] [address] PCP - General 02/15/20 02/23/23 Supa Reardon MD [address] [place] [address] PCP - General 02/24/23 documented as of this encounter
--- OUTSIDE RECORDS SUMMARY | 2025-03-02 13:22 | XMS_ITS | Encounter Summary ---
Author Organization [facility] Address [address] [place] [address] Phone Care Team Providers Care Sample Grinder Name Role Phone Trey Bowman DO Primary Care Provider [phone]- [phone] Supa Reardon MD Primary Care Provider Encounter Details Date Type Department Care Team (Late Contact Info) Description 02/26/2021 Orders Only [facility] LEGACY [address] [place] [address] Conversion, Onbase Social History Tobacco Use Types [...] Info) Description 03/22/2025 2:15 PM EDT Appointment [place] [address] [place] [address] 07/26/2025 9:20 AM EST Office Visit [address] [phone] Bonita Ovalles MD 703 [facility] [address], [address] [place], [place] [address] Scheduled Orders Name Type Priority Associated Diagnoses Orde r Schedule OUTSIDE LAB SCAN Lab Ordered: 02/26/2021 documented as of this encounter Visit Diagnoses Not on filedocumented in this encounter Care Teams Sample Grinder Relationship Specialty Start Date End Date Trey Bowman DO [address] [place] [address] PCP - General 02/15/20 02/23/23 Supa Reardon MD [address] [place] [address] PCP - General 02/24/23 documented as of this encounter
--- OUTSIDE RECORDS SUMMARY | 2025-03-02 13:22 | XMS_ITS | Encounter Summary ---
Author Organization [facility] Address [address] [place] [address] Phone Care Team Providers Care Divider Operator Name Role Phone Supa Reardon MD Primary Care Provider +1- [phone] Encounter Details Date Type Department Care Team (Late Contact Info) Description 06/04/2023 Scanned Document [facility] [address] [place] [address] Scanning, Generic Provider Social History [...] Info) Description 03/22/2025 2:15 PM EDT Appointment [address] [place] [address] 07/26/2025 9:20 AM EST Office Visit [address] [place] [address] Bonita Ovalles MD 703 [facility] [address] [place] [address] documented as of this encounter Procedures Procedure Name Priority Date/Time Associated Diagnosis Comments OUTSIDE IMAGING SCAN 06/04/2023 documented in this encounter Results * OUTSIDE IMAGING SCAN (06/04/2023) Anatomical Region Laterality Modality Other Narrative 06/04/2023 Ordered by an unspecified provider. us Generic Provider Scanning OUTSIDE SCAN Final Result documented in this encounter Visit Diagnoses Not on filedocumented in this encounter Care Teams Divider Operator Relationship Specialty Start Date End Date Supa Reardon MD [address] [place] [address] PCP - General 02/24/23 documented as of this encounter
--- OUTSIDE RECORDS SUMMARY | 2025-03-02 13:22 | XMS_ITS | Encounter Summary ---
Author Organization [facility] Address [address] [facility] [place] [address] Care Team Providers Care Terrazzo Mechanic Name Role Phone Supa Reardon MD Primary Care Provider [phone] Trey Bowman DO Unavailable [phone] Monica Hook MD Unavailable [phone] Jorje Ramirez MD Unavailable [phone] Bonita Ovalles MD Unavailable [phone] Supa Reardon MD Unavailable [phone] Encounter Details Date Type Department Care Team (Late st Contact Info) Description 01/02/2023 Orders Only [facility] [address] [address] [place] [address] A, Unknown Practice [address] [place] [address] Social History Tobacco Use Types Packs/Day Years [...] Department Care Team (Late Contact Info) Description 06/20/2025 1:30 PM EST Office Visit [facility] [address] [place] [address] documented as of this encounter Procedures Procedure [...] on filedocumented in this encounter Care Teams Terrazzo Mechanic Relationship Specialty Start Date End Date Supa Reardon MD [address] [place] [address] PCP - General Internal Medicine 11/04/22 Trey Bowman DO [address] [place] [address] PCP - ACO Reach 11/06/22 03/14/24 Supa Reardon MD [address] [place] [address] PCP - ACO Reach 03/15/24 Monica Hook MD [address] [place] [address] Referring Physician Dermatology 05/14/23 Jorje Ramirez MD [address] [place] [address] Referring Physician Urology 05/14/23 Bonita Ovalles MD 703 [facility] [address] [place] [address] Referring Physician Cardiology 05/14/23 documented as of this encounter
--- OUTSIDE RECORDS SUMMARY | 2025-03-02 13:22 | XMS_ITS | Encounter Summary ---
Author Organization [facility] Address [address] [place] [address] Phone Care Team Providers Care Riveting Machine Operator Tape Control Name Role Phone Trey Bowman DO Primary Care Provider [phone]- [phone] Supa Reardon MD Primary Care Provider [phone] Encounter Details Date Type Department Care Team (Late Contact Info) Description 12/04/2020 Orders Only [facility] LEGACY [address] [place] [address] Conversion, Onbase Social History Tobacco Use Types [...] Info) Description 03/22/2025 2:15 PM EDT Appointment [place] [place] [address] 07/26/2025 9:20 AM EST Office Visit [address] [place] [address] [phone] Bonita Ovalles MD 703 [facility] [address] [place], [place] [phone] Scheduled Orders Name Type Priority Associated Diagnoses Orde r Schedule OUTSIDE LAB SCAN Lab Ordered: 12/04/2020 documented as of this encounter Visit Diagnoses Not on filedocumented in this encounter Care Teams Riveting Machine Operator Tape Control Relationship Specialty Start Date End Date Trey Bowman DO [address] [place] [address] PCP - General 02/15/20 02/23/23 Supa Reardon MD [address] [place] [address] PCP - General 02/24/23 documented as of this encounter
--- OUTSIDE RECORDS SUMMARY | 2025-03-02 13:22 | XMS_ITS | Encounter Summary ---
Author Organization [facility] Address [address] [place] [address] Phone Care Team Providers Care Gas Operator Name Role Phone Trey Bowman DO Primary Care Provider [phone]- [phone] Supa Reardon MD Primary Care Provider Encounter Details Date Type Department Care Team (Late Contact Info) Description 02/17/2023 Orders Only [facility] LEGACY [address] [place] [address] Conversion, Onbase Social History Tobacco Use Types [...] Info) Description 03/22/2025 2:15 PM EDT Appointment [place] [address] [place] [address] 07/26/2025 9:20 AM EST Office Visit [address] [phone] Bonita Ovalles MD 703 [facility] [address] [place], [place] [address] Scheduled Orders Name Type Priority Associated Diagnoses Orde r Schedule OUTSIDE LAB SCAN Lab Ordered: 02/17/2023 OUTSIDE LAB SCAN Lab Ordered: 02/17/2023 documented as of this encounter Visit Diagnoses Not on filedocumented in this encounter Care Teams Gas Operator Relationship Specialty Start Date End Date Trey Bowman DO [address] [place] [address] PCP - General 02/15/20 02/23/23 Supa Reardon MD [address] [place] [address] PCP - General 02/24/23 documented as of this encounter
--- OUTSIDE RECORDS SUMMARY | 2025-03-02 13:22 | XMS_ITS | Encounter Summary ---
Author Organization [facility] Address [address] [place] [address] Phone Care Team Providers Care Civil Engineer Land Development Name Role Phone Trey Bowman DO Primary Care Provider [phone]- [phone] Supa Reardon MD Primary Care Provider Encounter Details Date Type Department Care Team (Late Contact Info) Description 03/05/2021 Orders Only [facility] LEGACY [address] [place] [address] Conversion, Onbase Social History Tobacco Use Types [...] Info) Description 03/22/2025 2:15 PM EDT Appointment [place] [address] [place] [address] 07/26/2025 9:20 AM EST Office Visit [address] [phone] Bonita Ovalles MD 703 [facility] [address] [place], [place] [address] Scheduled Orders Name Type Priority Associated Diagnoses Orde r Schedule OUTSIDE LAB SCAN Lab Ordered: 03/05/2021 documented as of this encounter Visit Diagnoses Not on filedocumented in this encounter Care Teams Civil Engineer Land Development Relationship Specialty Start Date End Date Trey Bowman DO [address] [place] [address] PCP - General 02/15/20 02/23/23 Supa Reardon MD [address] [place] [address] PCP - General 02/24/23 documented as of this encounter
--- OUTSIDE RECORDS SUMMARY | 2025-03-02 13:22 | XMS_ITS | Encounter Summary ---
Author Organization [place] Address [address] [place] [address] Phone Care Team Providers Care Assistant Program Manager Name Role Phone Supa Reardon MD Primary Care Provider [phone]- [phone] Encounter Details Date Type Department Care Team (Late Contact Info) Description 03/13/2023 Scanned Document [facility] LEGACY [address] [place] [address] Conversion, Onbase Social History Tobacco Use Types [...] Info) Description 03/22/2025 2:15 PM EDT Appointment [address] [place] [address] 07/26/2025 9:20 AM EST Office Visit [address] [place] [address] Bonita Ovalles MD [address] [employer] [facility] [address] [place], [place] [address] documented as of this encounter Visit Diagnoses Not on filedocumented in this encounter Care Teams Assistant Program Manager Relationship Specialty Start Date End Date Supa Reardon MD [address] [place] [address] PCP - General 02/24/23 documented as of this encounter
--- OUTSIDE RECORDS SUMMARY | 2025-03-02 13:22 | XMS_ITS | Encounter Summary ---
Author Organization [facility] Address [address] [facility] [place] [address] Care Team Providers Care Kitchen Porter Name Role Phone Supa Reardon MD Primary Care Provider [phone] Trye Bowman DO Unavailable [phone] Monica Hook MD Unavailable [phone] Jorje Ramirez MD Unavailable [phone] Bonita Ovalles MD Unavailable [phone] Supa Reardon MD Unavailable [phone] Encounter Details Date Type Department Care Team (Late Contact Info) Description 04/02/2023 Orders Only [facility] [place] [facility] [address] [facility] [address] [place] [address] A, Unknown Practice [address] [place], [place] [address] Social History Tobacco Use Types Packs/Day Years [...] Date 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 Not on file Not on file documented as of this encounter Plan of Treatment Upcoming Encounters Date Type Department Care Team (Late Contact Info) Description 06/20/2025 1:30 PM EST Office Visit [facility] [place] [facility] [address] [place] [address] documented as of this encounter Procedures Procedure [...] on filedocumented in this encounter Care Teams Kitchen Porter Relationship Specialty Start Date End Date Supa Reardon MD [address] [place] [address] PCP - General Internal Medicine 11/04/22 Trey Bowman DO [address] [place] [address] PCP - ACO Reach 11/06/22 03/14/24 Supa Reardon MD [address] [place] [address] PCP - ACO Reach 03/15/24 Monica Hook MD [address] [place] [address] Referring Physician Dermatology 05/14/23 Jorje Ramirez MD [address] [place] [address] Referring Physician Urology 05/14/23 Bonita Ovalles MD 703 [facility] 2, [place] [phone] Referring Physician Cardiology 05/14/23 documented as of this encounter
--- OUTSIDE RECORDS SUMMARY | 2025-03-02 13:22 | XMS_ITS | Encounter Summary ---
Author Organization [facility] Address [address] [place] [address] Phone Care Team Providers Care Bonded Strand Operator Name Role Phone Trey Bowman DO Primary Care Provider [phone]- [phone] Supa Reardon MD Primary Care Provider Encounter Details Date Type Department Care Team (Late st Contact Info) Description 08/27/2022 Orders Only [facility] LEGACY [address] [place] [address] Conversion, Onbase Social History Tobacco Use Types [...] Info) Description 03/22/2025 2:15 PM EDT Appointment [place] [place] [address] 07/26/2025 9:20 AM EST Office Visit [address] [phone] Bonita Ovalles MD 703 [facility] [address], [address] [place], [place] [address] Scheduled Orders Name Type Priority Associated Diagnoses Orde r Schedule OUTSIDE LAB SCAN Lab Ordered: 08/27/2022 documented as of this encounter Visit Diagnoses Not on filedocumented in this encounter Care Teams Bonded Strand Operator Relationship Specialty Start Date End Date Trey Bowman DO [address] [place] [address] PCP - General 02/15/20 02/23/23 Supa Reardon MD [address] [place] [address] PCP - General 02/24/23 documented as of this encounter
--- OUTSIDE RECORDS SUMMARY | 2025-03-02 13:22 | XMS_ITS | Encounter Summary ---
Author Organization [facility] Address [address] [place] [address] Phone Care Team Providers Care Nuts And Bolts Assembler Name Role Phone Trey Bowman DO Primary Care Provider +1- [phone] Supa Reardon MD Primary Care Provider Encounter Details Date Type Department Care Team (Late st Contact Info) Description 05/15/2020 Orders Only [facility]Y [address] [place] [address] Conversion, Onbase Social History Tobacco Use Types [...] 03/22/2025 2:15 PM EDT Appointment [place] [address] [place] [address] 07/26/2025 9:20 AM EST Office Visit [address] [phone] Bonita Ovalles MD 703 [facility] 2, [address] [place], [place] [address] Scheduled Orders Name Type Priority Associated Diagnoses Orde r Schedule OUTSIDE LAB SCAN Lab Ordered: 05/15/2020 documented as of this encounter Visit Diagnoses Not on filedocumented in this encounter Care Teams Nuts And Bolts Assembler Relationship Specialty Start Date End Date Trey Bowman DO [address] [place] [address] PCP - General 02/15/20 02/23/23 Supa Reardon MD [address] [place] [address] PCP - General 02/24/23 documented as of this encounter
--- OUTSIDE RECORDS SUMMARY | 2025-03-02 13:22 | XMS_ITS | Encounter Summary ---
Author Organization [facility] Address [address] [place] [address] Care Team Providers Care Rn Tele Name Role Phone Supa Reardon MD Primary Care Provider [phone] Trey Bowman DO Unavailable [phone] Monica Hook MD Unavailable [phone] Jorje Ramirez MD Unavailable [phone] Bonita Ovalles MD Unavailable [phone] Supa Reardon MD Unavailable [phone] Encounter Details Date Type Department Care Team (Late st Contact Info) Description 12/12/2022 Abstract [facility] [address] [facility] 150 [place] [address] Isai Pino, PT [address] [facility] 150 [place] [address] Social History Tobacco Use Types Packs/Day Years [...] [address] [place] [phone] documented as of this encounter Visit Diagnoses Not on filedocumented in this encounter Care Teams Rn Tele Relationship Specialty Start Date End Date Supa Reardon MD [address] [place] [address] PCP - General Internal Medicine 11/04/22 Trey Bowman DO [address] [place] [address] PCP - ACO Reach 11/06/22 03/14/24 Supa Reardon MD [address] [place] [address] PCP - ACO Reach 03/15/24 Monica Hook MD [address] [place] [address] Referring Physician Dermatology 05/14/23 Jorje Ramirez MD [address] [place] [address] Referring Physician Urology 05/14/23 Bonita Ovalles MD [address] [place] [address] Referring Physician Cardiology 05/14/23 documented as of this encounter
--- OUTSIDE RECORDS SUMMARY | 2025-03-02 13:22 | XMS_ITS | Encounter Summary ---
Author Organization [facility] Address [address] [place] [address] Phone Care Team Providers Care Client Support Consultant Name Role Phone Trey Bowman DO Primary Care Provider [phone]- [phone] Supa Reardon MD Primary Care Provider Encounter Details Date Type Department Care Team (Late st Contact Info) Description 05/02/2020 Orders Only [facility] LE[facility] [address] [place] [address] Conversion, Onbase Social History Tobacco Use Types [...] Info) Description 03/22/2025 2:15 PM EDT Appointment [place] [address] [place] [address] 07/26/2025 9:20 AM EST Office Visit [address] [phone] Bonita Ovalles MD 7[address] [facility] [address], [address] [place], [place] [phone] Scheduled Orders Name Type Priority Associated Diagnoses Orde r Schedule OUTSIDE LAB SCAN Lab Ordered: 05/02/2020 documented as of this encounter Visit Diagnoses Not on filedocumented in this encounter Care Teams Client Support Consultant Relationship Specialty Start Date End Date Trey Bowman DO [address] [place] [address] PCP - General 02/15/20 02/23/23 Supa Reardon MD [address] [place] [address] PCP - General 02/24/23 documented as of this encounter
--- OUTSIDE RECORDS SUMMARY | 2025-03-02 13:22 | XMS_ITS | Encounter Summary ---
Author Organization [facility] Address [address] [facility] [place] [address] Care Team Providers Care Tap Builder Name Role Phone Supa Reardon MD Primary Care Provider [phone] Trey Bowman DO Unavailable [phone] Monica Hook MD Unavailable [phone] Jorje Ramirez MD Unavailable [phone] Bonita Ovalles MD Unavailable [phone] Supa Reardon MD Unavailable [phone] Encounter Details Date Type Department Care Team (Late Contact Info) Description 04/01/2023 Orders Only [facility] [place] [facility] [address] [facility] 230 [place] [address] A, Unknown Practice [address] [place], [place] [address] Social History Tobacco Use Types Packs/Day Years [...] Date 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 on file Not on file documented as of this encounter Plan of Treatment Upcoming Encounters Date Type Department Care Team (Late Contact Info) Description 06/20/2025 1:30 PM EST Office Visit [facility] [address] [place] [address] documented as of this encounter Procedures Procedure [...] on filedocumented in this encounter Care Teams Tap Builder Relationship Specialty Start Date End Date Supa Reardon MD [address] [place] [address] PCP - General Internal Medicine 11/04/22 Trey Bowman DO [address] [place] [address] PCP - ACO Reach 11/06/22 03/14/24 Supa Reardon MD [address] [place] [address] PCP - ACO Reach 03/15/24 Monica Hook MD [address] [place] [address] Referring Physician Dermatology 05/14/23 Jorje Ramirez MD [address] [place] [address] Referring Physician Urology 05/14/23 Bonita Ovalles MD 703 [facility] 2, [place] [phone] Referring Physician Cardiology 05/14/23 documented as of this encounter
--- OUTSIDE RECORDS SUMMARY | 2025-03-02 13:22 | XMS_ITS | Encounter Summary ---
Author Organization [facility] Address [address] [place] [address] Phone Care Team Providers Care Electronic Engraver Name Role Phone Trey Bowman DO Primary Care Provider [phone]- [phone] Supa Reardon MD Primary Care Provider Encounter Details Date Type Department Care Team (Late Contact Info) Description 10/14/2022 Orders Only [facility] LE[facility] [address] [place] [address] Conversion, Onbase Social History Tobacco Use Types [...] Info) Description 03/22/2025 2:15 PM EDT Appointment [place] [address] [place] [address] 07/26/2025 9:20 AM EST Office Visit [address] [phone] Bonita Ovalles MD 703 [facility] 2, [address] [place], [place] [address] Scheduled Orders Name Type Priority Associated Diagnoses Orde r Schedule OUTSIDE LAB SCAN Lab Ordered: 10/14/2022 documented as of this encounter Visit Diagnoses Not on filedocumented in this encounter Care Teams Electronic Engraver Relationship Specialty Start Date End Date Trey Bomwan DO [address] [place] [address] PCP - General 02/15/20 02/23/23 Supa Reardon MD [address] [place] [address] PCP - General 02/24/23 documented as of this encounter
--- OUTSIDE RECORDS SUMMARY | 2025-03-02 13:22 | XMS_ITS | Encounter Summary ---
Author Organization [facility] Address [address] [place] [address] Phone Care Team Providers Care Cotton Presser Name Role Phone Trey Bowman DO Primary Care Provider [phone]- [phone] Supa Reardon MD Primary Care Provider Encounter Details Date Type Department Care Team (Late Contact Info) Description 08/09/2020 Orders Only [facility] LEGACY [address] [place] [address] Conversion, Onbase Social History Tobacco Use Types [...] Info) Description 03/22/2025 2:15 PM EDT Appointment [place] [address] [place] [address] 07/26/2025 9:20 AM EST Office Visit [address] [phone] Bonita Ovalles MD 703 [facility] 2, [address] [place], [place] [address] Scheduled Orders Name Type Priority Associated Diagnoses Orde r Schedule OUTSIDE LAB SCAN Lab Ordered: 08/09/2020 documented as of this encounter Visit Diagnoses Not on filedocumented in this encounter Care Teams Cotton Presser Relationship Specialty Start Date End Date Tery Bowman DO [address] [place] [address] PCP - General 02/15/20 02/23/23 Supa Reardon MD [address] [place] [address] PCP - General 02/24/23 documented as of this encounter
--- OUTSIDE RECORDS SUMMARY | 2025-03-02 13:22 | XMS_ITS | Encounter Summary ---
Author Organization [facility] Address [address] [place] [address] Phone Care Team Providers Care Mill Roll Operator Name Role Phone Trey Bowman DO Primary Care Provider [phone] Supa Reardon MD Primary Care Provider Encounter Details Date Type Department Care Team (Late Contact Info) Description 09/25/2020 Orders Only [facility] LE[facility] [address] [place] [address] Conversion, Onbase Social History Tobacco Use Types [...] Info) Description 03/22/2025 2:15 PM EDT Appointment [place] [address] [place] [address] 07/26/2025 9:20 AM EST Office Visit [address] [phone] Bonita Ovalles MD 703 [facility] 2, [address] [place], [place] [address] Scheduled Orders Name Type Priority Associated Diagnoses Orde r Schedule OUTSIDE LAB SCAN Lab Ordered: 09/25/2020 documented as of this encounter Visit Diagnoses Not on filedocumented in this encounter Care Teams Mill Roll Operator Relationship Specialty Start Date End Date Trey Bowman DO [address] [place] [address] PCP - General 02/15/20 02/23/23 Supa Reardon MD [address] [place] [address] PCP - General 02/24/23 documented as of this encounter
--- OUTSIDE RECORDS SUMMARY | 2025-03-02 13:22 | XMS_ITS | Encounter Summary ---
Author Organization [facility] Address [address] [place] [address] Phone Care Team Providers Care Packing And Shipping Clerk Name Role Phone Trey Bowman DO Primary Care Provider [phone] Supa Reardon MD Primary Care Provider Encounter Details Date Type Department Care Team (Late Contact Info) Description 01/06/2023 Orders Only [facility] LEGACY [address] [place] [address] Conversion, Onbase Social History Tobacco Use Types [...] Info) Description 03/22/2025 2:15 PM EDT Appointment [place] [address] [place] [address] 07/26/2025 9:20 AM EST Office Visit [address] [phone] Bonita Ovalles MD 703 [facility] [address], [address] [place], [place] [address] Scheduled Orders Name Type Priority Associated Diagnoses Orde r Schedule OUTSIDE LAB SCAN Lab Ordered: 01/06/2023 documented as of this encounter Visit Diagnoses Not on filedocumented in this encounter Care Teams Packing And Shipping Clerk Relationship Specialty Start Date End Date Trey Bowman DO [address] [place] [address] PCP - General 02/15/20 02/23/23 Supa Reardon MD [address] [place] [address] PCP - General 02/24/23 documented as of this encounter
--- OUTSIDE RECORDS SUMMARY | 2025-03-02 13:22 | XMS_ITS | Encounter Summary ---
Author Organization [facility] Address [address] [place] [address] Phone Care Team Providers Care Per Diem Nurse Name Role Phone Trey Bowman DO Primary Care Provider [phone] Supa Reardon MD Primary Care Provider [phone] Encounter Details Date Type Department Care Team (Late Contact Info) Description 01/03/2021 Orders Only [facility] LE[facility]Y [address] [place] [address] Conversion, Onbase Social History Tobacco Use Types [...] Info) Description 03/22/2025 2:15 PM EDT Appointment [place] [address] [place] [address] 07/26/2025 9:20 AM EST Office Visit [address] [phone] Bonita Ovalles MD 703 [facility] [address], [address] [place], [place] [address] Scheduled Orders Name Type Priority Associated Diagnoses Orde r Schedule OUTSIDE LAB SCAN Lab Ordered: 01/03/2021 documented as of this encounter Visit Diagnoses Not on filedocumented in this encounter Care Teams Per Diem Nurse Relationship Specialty Start Date End Date Trey Bowman DO [address] [place] [address] PCP - General 02/15/20 02/23/23 Supa Reardon MD [address] [place] [address] PCP - General 02/24/23 documented as of this encounter
--- OUTSIDE RECORDS SUMMARY | 2025-03-02 13:22 | XMS_ITS | Encounter Summary ---
Author Organization [facility] Address [address] [place] [address] Phone Care Team Providers Care Proposal Analyst Name Role Phone Trey Bowman DO Primary Care Provider [phone]- [phone] Supa Reardon MD Primary Care Provider Encounter Details Date Type Department Care Team (Late Contact Info) Description 02/06/2022 Orders Only [facility] LE[facility]Y [address] [place] [address] Conversion, Onbase Social History Tobacco Use Types [...] Info) Description 03/22/2025 2:15 PM EDT Appointment [place] [address] [place] [address] 07/26/2025 9:20 AM EST Office Visit [address] [phone] Bonita Ovalles MD 703 [facility] [address] [place], [place] [address] Scheduled Orders Name Type Priority Associated Diagnoses Orde r Schedule OUTSIDE LAB SCAN Lab Ordered: 02/06/2022 documented as of this encounter Visit Diagnoses Not on filedocumented in this encounter Care Teams Proposal Analyst Relationship Specialty Start Date End Date Trey Bowman DO [address] [place] [address] PCP - General 02/15/20 02/23/23 Supa Reardon MD [address] [place] [address] PCP - General 02/24/23 documented as of this encounter
--- OUTSIDE RECORDS SUMMARY | 2025-03-02 13:22 | XMS_ITS | Encounter Summary ---
Author Organization [facility] Address [address] [place] [address] Phone Care Team Providers Care Manager Public Name Role Phone Trey Bowman DO Primary Care Provider [phone]- [phone] Supa Reardon MD Primary Care Provider [phone] Encounter Details Date Type Department Care Team (Late st Contact Info) Description 08/27/2020 Orders Only [facility] [address] [place] [address] Conversion, Onbase Social History Tobacco Use Types [...] 03/22/2025 2:15 PM EDT Appointment [place] [address] [place] [address] 07/26/2025 9:20 AM EST Office Visit [address] [phone] Bonita Ovalles MD 703 [facility] 2, [address] [place], [place] [address] Scheduled Orders Name Type Priority Associated Diagnoses Orde r Schedule OUTSIDE LAB SCAN Lab Ordered: 08/27/2020 documented as of this encounter Visit Diagnoses Not on filedocumented in this encounter Care Teams Manager Public Relationship Specialty Start Date End Date Trey Bowman DO [address] [place] [address] PCP - General 02/15/20 02/23/23 Supa Reardon MD [address] [place] [address] PCP - General 02/24/23 documented as of this encounter
--- OUTSIDE RECORDS SUMMARY | 2025-03-02 13:22 | XMS_ITS | Encounter Summary ---
Author Organization [facility] Address [address] [place] [address] Phone Care Team Providers Care Tool Filer Hand Name Role Phone Trey Bowman DO Primary Care Provider [phone]- [phone] Supa Reardon MD Primary Care Provider Encounter Details Date Type Department Care Team (Late st Contact Info) Description 01/13/2023 Scanned Document [facility] LEGACY [address] [place] [address] Conversion, Onbase Social History Tobacco Use Types [...] Info) Description 03/22/2025 2:15 PM EDT Appointment [address] [place] [address] 07/26/2025 9:20 AM EST Office Visit [address] [place] [phone] Bonita Ovalles MD 703 [facility] [address], [address] [place], [place] [address] documented as of this encounter Procedures Procedure Name Priority Date/Time Associated Diagnosis Comments OUTSIDE IMAGING SCAN 01/13/2023 documented in this encounter Results * OUTSIDE IMAGING SCAN (01/13/2023) Anatomical Region Laterality Modality Other Narrative 01/13/2023 Ordered by an unspecified provider. us Onbase Conversion OUTSIDE SCAN Final Result documented in this encounter Visit Diagnoses Not on filedocumented in this encounter Care Teams Tool Filer Hand Relationship Specialty Start Date End Date Trey Bowman DO [address] [place] [address] PCP - General 02/15/20 02/23/23 Supa Reardon MD [address] [place] [address] PCP - General 02/24/23 documented as of this encounter
--- OUTSIDE RECORDS SUMMARY | 2025-03-02 13:22 | XMS_ITS | Encounter Summary ---
Author Organization [facility] Address [address] [place] [address] Phone Care Team Providers Care Plumbing Designer Name Role Phone Trey Bowman DO Primary Care Provider [phone]- [phone] Supa Reardon MD Primary Care Provider [phone] Encounter Details Date Type Department Care Team (Late Contact Info) Description 01/09/2022 Orders Only [facility] [address] [place] [address] Conversion, Onbase Social History Tobacco Use Types [...] Info) Description 03/22/2025 2:15 PM EDT Appointment [place] [address] [place] [address] 07/26/2025 9:20 AM EST Office Visit [address] [phone] Bonita Ovalles MD 703 [facility] [address] [place], [place] [phone] Scheduled Orders Name Type Priority Associated Diagnoses Orde r Schedule OUTSIDE LAB SCAN Lab Ordered: 01/09/2022 documented as of this encounter Visit Diagnoses Not on filedocumented in this encounter Care Teams Plumbing Designer Relationship Specialty Start Date End Date Trey Bowman DO [address] [place] [address] PCP - General 02/15/20 02/23/23 Supa Reardon MD [address] [place] [address] PCP - General 02/24/23 documented as of this encounter
--- OUTSIDE RECORDS SUMMARY | 2025-03-02 13:22 | XMS_ITS | Encounter Summary ---
Author Organization [facility] Address [address] [place] [address] Phone Care Team Providers Care General Administrator Name Role Phone Trey Bowman DO Primary Care Provider [phone]- [phone] Supa Reardon MD Primary Care Provider Encounter Details Date Type Department Care Team (Late Contact Info) Description 01/19/2023 Orders Only [facility] LE[facility] [address] [place] [address] Conversion, Onbase Social History Tobacco Use Types [...] Info) Description 03/22/2025 2:15 PM EDT Appointment [place] [address] [place] [address] 07/26/2025 9:20 AM EST Office Visit [address] [phone] Bonita Ovalles MD 703 [facility] [address] [place], [place] [address] Scheduled Orders Name Type Priority Associated Diagnoses Orde r Schedule OUTSIDE LAB SCAN Lab Ordered: 01/19/2023 documented as of this encounter Visit Diagnoses Not on filedocumented in this encounter Care Teams General Administrator Relationship Specialty Start Date End Date Trey Bowman DO [address] [place] [address] PCP - General 02/15/20 02/23/23 Supa Reardon MD [address] [place] [address] PCP - General 02/24/23 documented as of this encounter
--- OUTSIDE RECORDS SUMMARY | 2025-03-02 13:22 | XMS_ITS | Encounter Summary ---
Author Organization [facility] Address [address] [place] [address] Phone Care Team Providers Care Auxiliary Engineer Name Role Phone Trey Bowman DO Primary Care Provider [phone] Supa Reardon MD Primary Care Provider Encounter Details Date Type Department Care Team (Late Contact Info) Description 04/30/2021 Orders Only [facility] LE[facility] [address] [place] [address] Conversion, Onbase Social History Tobacco Use Types [...] Info) Description 03/22/2025 2:15 PM EDT Appointment [place] [address] [place] [address] 07/26/2025 9:20 AM EST Office Visit [address] [phone] Bonita Ovalles MD 703 [facility] [address] [place], [place] [address] Scheduled Orders Name Type Priority Associated Diagnoses Orde r Schedule OUTSIDE LAB SCAN Lab Ordered: 04/30/2021 documented as of this encounter Visit Diagnoses Not on filedocumented in this encounter Care Teams Auxiliary Engineer Relationship Specialty Start Date End Date Trey Bowman DO [address] [place] [address] PCP - General 02/15/20 02/23/23 Supa Reardon MD [address] [place] [address] PCP - General 02/24/23 documented as of this encounter
--- OUTSIDE RECORDS SUMMARY | 2025-03-02 13:22 | XMS_ITS | Encounter Summary ---
Author Organization [facility] Address [address] [place] [address] Phone Care Team Providers Care Porter Luggage Name Role Phone Trey Bowman DO Primary Care Provider [phone]- [phone] Supa Reardon MD Primary Care Provider Encounter Details Date Type Department Care Team (Late Contact Info) Description 03/25/2022 Orders Only [facility] [address] [place] [address] Conversion, Onbase Social History Tobacco Use Types [...] Info) Description 03/22/2025 2:15 PM EDT Appointment [place] [place] [address] 07/26/2025 9:20 AM EST Office Visit [address] [phone] Bonita Ovalles MD 703 [facility] [address] [place], [place] [address] Scheduled Orders Name Type Priority Associated Diagnoses Orde r Schedule OUTSIDE LAB SCAN Lab Ordered: 03/25/2022 documented as of this encounter Visit Diagnoses Not on filedocumented in this encounter Care Teams Porter Luggage Relationship Specialty Start Date End Date Trey Bowman DO [address] [place] [address] PCP - General 02/15/20 02/23/23 Supa Reardon MD [address] [place] [address] PCP - General 02/24/23 documented as of this encounter
--- OUTSIDE RECORDS SUMMARY | 2025-03-02 13:22 | XMS_ITS | Encounter Summary ---
Author Organization [facility] Address [address] [place] [address] Phone Care Team Providers Care Dining Room Cashier Name Role Phone Trey Bowman DO Primary Care Provider [phone]- [phone] Supa Reardon MD Primary Care Provider [phone] Encounter Details Date Type Department Care Team (Late Contact Info) Description 01/10/2021 Orders Only [facility] [address] [place] [address] Conversion, Onbase Social History Tobacco Use Types [...] Info) Description 03/22/2025 2:15 PM EDT Appointment [place] [place] [address] 07/26/2025 9:20 AM EST Office Visit [address] [phone] Bonita Ovalles MD 703 [facility] [address], [address] [place], [place] [address] Scheduled Orders Name Type Priority Associated Diagnoses Orde r Schedule OUTSIDE LAB SCAN Lab Ordered: 01/10/2021 documented as of this encounter Visit Diagnoses Not on filedocumented in this encounter Care Teams Dining Room Cashier Relationship Specialty Start Date End Date Trey Bowman DO [address] [place] [address] PCP - General 02/15/20 02/23/23 Supa Reardon MD [address] [place] [address] PCP - General 02/24/23 documented as of this encounter
--- OUTSIDE RECORDS SUMMARY | 2025-03-02 13:22 | XMS_ITS | Encounter Summary ---
Author Organization [facility] Address [address] [place] [address] Phone Care Team Providers Care Archival Studies Professor Name Role Phone Trey Bowman DO Primary Care Provider [phone]- [phone] Supa Reardon MD Primary Care Provider Encounter Details Date Type Department Care Team (Late Contact Info) Description 06/25/2020 Orders Only [facility] [address] [place] [address] Conversion, Onbase Social History Tobacco Use Types [...] Info) Description 03/22/2025 2:15 PM EDT Appointment [place] [address] [place] [address] 07/26/2025 9:20 AM EST Office Visit [address] [phone] Bonita Ovalles MD 703 [facility] [address], [address] [place], [place] [phone] Scheduled Orders Name Type Priority Associated Diagnoses Orde r Schedule OUTSIDE LAB SCAN Lab Ordered: 06/25/2020 documented as of this encounter Visit Diagnoses Not on filedocumented in this encounter Care Teams Archival Studies Professor Relationship Specialty Start Date End Date Trey Bowman DO [address] [place] [address] PCP - General 02/15/20 02/23/23 Supa Reardon MD [address] [place] [address] PCP - General 02/24/23 documented as of this encounter
--- OUTSIDE RECORDS SUMMARY | 2025-03-02 13:22 | XMS_ITS | Encounter Summary ---
Author Organization [facility] Address [address] [place] [address] Phone Care Team Providers Care Powder Mill Operator Name Role Phone Trey Bowman DO Primary Care Provider [phone] Supa Reardon MD Primary Care Provider Encounter Details Date Type Department Care Team (Late Contact Info) Description 02/11/2022 Orders Only [facility] [address] [place] [address] Conversion, Onbase Social History Tobacco Use Types [...] Info) Description 03/22/2025 2:15 PM EDT Appointment [address] [place] [address] 07/26/2025 9:20 AM EST Office Visit [address] [place] [address] Bonita Ovalles MD 703 [facility] [address], [address] [place], [place] [phone] Scheduled Orders Name Type Priority Associated Diagnoses Orde r Schedule OUTSIDE LAB SCAN Lab Ordered: 02/11/2022 documented as of this encounter Visit Diagnoses Not on filedocumented in this encounter Care Teams Powder Mill Operator Relationship Specialty Start Date End Date Trey Bowman DO [address] [place] [address] PCP - General 02/15/20 02/23/23 Supa Reardon MD [address] [place] [address] PCP - General 02/24/23 documented as of this encounter
--- OUTSIDE RECORDS SUMMARY | 2025-03-02 13:22 | XMS_ITS | Encounter Summary ---
Author Organization [facility] Address [address] [place] [address] Phone Care Team Providers Care Cross Tie Maker Name Role Phone Trey Bowman DO Primary Care Provider [phone]- [phone] Supa Reardon MD Primary Care Provider Encounter Details Date Type Department Care Team (Late Contact Info) Description 11/15/2020 Orders Only [facility] [address] [place] [address] Conversion, Onbase Social History Tobacco Use Types [...] Info) Description 03/22/2025 2:15 PM EDT Appointment [place] [address] [place] [address] 07/26/2025 9:20 AM EST Office Visit [address] [phone] Bonita Ovalles MD 703 [facility] 2, [address] [place], [place] 8[address] Scheduled Orders Name Type Priority Associated Diagnoses Orde r Schedule OUTSIDE LAB SCAN Lab Ordered: 11/15/2020 documented as of this encounter Visit Diagnoses Not on filedocumented in this encounter Care Teams Cross Tie Maker Relationship Specialty Start Date End Date Trey Bowman DO [address] [place] [address] PCP - General 02/15/20 02/23/23 Supa Reardon MD [address] [place] [address] PCP - General 02/24/23 documented as of this encounter
--- OUTSIDE RECORDS SUMMARY | 2025-03-02 13:22 | XMS_ITS | Encounter Summary ---
Author Organization [facility] Address [address] [place] [address] Phone Care Team Providers Care News Intern Name Role Phone Trey Bowman DO Primary Care Provider [phone] Supa Reardon MD Primary Care Provider Encounter Details Date Type Department Care Team (Late Contact Info) Description 02/28/2021 Orders Only [facility] [address] [place] [address] Conversion, Onbase Social History Tobacco Use Types [...] Info) Description 03/22/2025 2:15 PM EDT Appointment [place] [address] [place] [address] 07/26/2025 9:20 AM EST Office Visit [address] [phone] Bonita Ovalles MD 703 [facility] [address], [address] [place], [place] [address] Scheduled Orders Name Type Priority Associated Diagnoses Orde r Schedule OUTSIDE LAB SCAN Lab Ordered: 02/28/2021 documented as of this encounter Visit Diagnoses Not on filedocumented in this encounter Care Teams News Intern Relationship Specialty Start Date End Date Trey Bowman DO [address] [place] [address] PCP - General 02/15/20 02/23/23 Supa Reardon MD [address] [place] [address] PCP - General 02/24/23 documented as of this encounter
--- OUTSIDE RECORDS SUMMARY | 2025-03-02 13:22 | XMS_ITS | Encounter Summary ---
Author Organization [facility] Address [address] [place] [address] Phone Care Team Providers Care Concrete Pump Operator Name Role Phone Trey Bowman DO Primary Care Provider [phone] Supa Reardon MD Primary Care Provider Encounter Details Date Type Department Care Team (Late Contact Info) Description 10/04/2020 Orders Only [facility] [address] [place] [address] Conversion, Onbase Social History Tobacco Use Types [...] Info) Description 03/22/2025 2:15 PM EDT Appointment [place] [address] [place] [address] 07/26/2025 9:20 AM EST Office Visit [address] [phone] Bonita Ovalles MD 703 [facility] [address], [address] [place], [place] [phone] Scheduled Orders Name Type Priority Associated Diagnoses Orde r Schedule OUTSIDE LAB SCAN Lab Ordered: 10/04/2020 documented as of this encounter Visit Diagnoses Not on filedocumented in this encounter Care Teams Concrete Pump Operator Relationship Specialty Start Date End Date Trey Bowman DO [address] [place] [address] PCP - General 02/15/20 02/23/23 Supa Reardon MD [address] [place] [address] PCP - General 02/24/23 documented as of this encounter
--- OUTSIDE RECORDS SUMMARY | 2025-03-02 13:22 | XMS_ITS | Encounter Summary ---
Author Organization [facility] Address [address] [place] [address] Phone Care Team Providers Care Registered Health Nurse Name Role Phone Trey Bowman DO Primary Care Provider [phone] Supa Reardon MD Primary Care Provider Encounter Details Date Type Department Care Team (Late Contact Info) Description 04/24/2022 Orders Only [facility] [address] [place] [address] Conversion, Onbase Social History Tobacco Use Types [...] Info) Description 03/22/2025 2:15 PM EDT Appointment [place] [address] [place] [address] 07/26/2025 9:20 AM EST Office Visit [address] [phone] Bonita Ovalles MD 703 [facility] 2, [address] [place], [place] [phone] Scheduled Orders Name Type Priority Associated Diagnoses Orde r Schedule OUTSIDE LAB SCAN Lab Ordered: 04/24/2022 documented as of this encounter Visit Diagnoses Not on filedocumented in this encounter Care Teams Registered Health Nurse Relationship Specialty Start Date End Date Trey Bowman DO [address] [place] [address] PCP - General 02/15/20 02/23/23 Supa Reardon MD [address] [place] [address] PCP - General 02/24/23 documented as of this encounter
--- OUTSIDE RECORDS SUMMARY | 2025-03-02 13:22 | XMS_ITS | Encounter Summary ---
Author Organization [facility] Address [address] [place] [address] Phone Care Team Providers Care Legal Writing Professor Name Role Phone Trey Bowman DO Primary Care Provider [phone]- [phone] Supa Reardon MD Primary Care Provider Encounter Details Date Type Department Care Team (Late Contact Info) Description 05/20/2022 Orders Only [facility] [address] [place] [address] Conversion, Onbase Social History Tobacco Use Types [...] Info) Description 03/22/2025 2:15 PM EDT Appointment [place] [address] [place] [address] 07/26/2025 9:20 AM EST Office Visit [address] [phone] Bonita Ovalles MD 703 [facility] [address], [address] [place], [place] [address] Scheduled Orders Name Type Priority Associated Diagnoses Orde r Schedule OUTSIDE LAB SCAN Lab Ordered: 05/20/2022 documented as of this encounter Visit Diagnoses Not on filedocumented in this encounter Care Teams Legal Writing Professor Relationship Specialty Start Date End Date Trey Bowman DO [address] [place] [address] PCP - General 02/15/20 02/23/23 Supa Reardon MD [address] [place] [address] PCP - General 02/24/23 documented as of this encounter
--- OUTSIDE RECORDS SUMMARY | 2025-03-02 13:22 | XMS_ITS | Encounter Summary ---
Author Organization [facility] Address [address] [place] [address] Care Team Providers Care Hvac Lead Name Role Phone Supa Reardon MD Primary Care Provider [phone] Trey Bowman DO Unavailable [phone] Monica Hook MD Unavailable [phone] Jorje Ramirez MD Unavailable [phone] Bonita Ovalles MD Unavailable [phone] Supa Reardon MD Unavailable [phone] Encounter Details Date Type Department Care Team (Late Contact Info) Description 12/19/2022 Orders Only [facility] [address] [facility] [address] [place] [address] Provider, MD Maricruz [address] [place] [address] Social History Tobacco Use Types Packs/Day [...] Visit [facility] [address] [facility] [address] [place] [address] documented as of this encounter Procedures Procedure [...] on filedocumented in this encounter Care Teams Hvac Lead Relationship Specialty Start Date End Date Supa Reardon MD [address] [place] [address] PCP - General Internal Medicine 11/04/22 Trey Bowman DO [address] [place] [address] PCP - ACO Reach 11/06/22 03/14/24 Supa Reardon MD [address] [place] [address] PCP - ACO Reach 03/15/24 Monica Hook MD [address] [place] [address] Referring Physician Dermatology 05/14/23 Jorje Ramirez MD [address] [facility] [place] [address] Referring Physician Urology 05/14/23 Bonita Ovalles MD 703 [facility] [address], [address] [place] [address] Referring Physician Cardiology 05/14/23 documented as of this encounter
--- OUTSIDE RECORDS SUMMARY | 2025-03-02 13:22 | XMS_ITS | Encounter Summary ---
Author Organization [facility] Address [address] [place] [address] Phone Care Team Providers Care Bottom Stop Attacher Name Role Phone Trey Bowman DO Primary Care Provider [phone]- [phone] Supa Reardon MD Primary Care Provider [phone] Encounter Details Date Type Department Care Team (Late Contact Info) Description 08/14/2020 Orders Only [facility] [address] [place] [address] Conversion, Onbase Social History Tobacco Use Types [...] Info) Description 03/22/2025 2:15 PM EDT Appointment [place] [address] [place] [address] 07/26/2025 9:20 AM EST Office Visit [address] [phone] Bonita Ovalles MD 703 [facility] 2, [address] [place], [place] [address] Scheduled Orders Name Type Priority Associated Diagnoses Orde r Schedule OUTSIDE LAB SCAN Lab Ordered: 08/14/2020 documented as of this encounter Visit Diagnoses Not on filedocumented in this encounter Care Teams Bottom Stop Attacher Relationship Specialty Start Date End Date Trey Bowman DO [address] [place] [address] PCP - General 02/15/20 02/23/23 Supa Reardon MD [address] [place] [address] PCP - General 02/24/23 documented as of this encounter
--- OUTSIDE RECORDS SUMMARY | 2025-03-02 13:22 | XMS_ITS | Encounter Summary ---
Author Organization [facility] Address [address] [place] [address] Phone Care Team Providers Care Felt Hat Steamer Name Role Phone Trey Bowman DO Primary Care Provider [phone]- [phone] Supa Reardon MD Primary Care Provider Encounter Details Date Type Department Care Team (Late Contact Info) Description 01/24/2021 Orders Only [facility] [address] [place] [address] Conversion, Onbase Social History Tobacco Use Types [...] 03/22/2025 2:15 PM EDT Appointment [place] [address] [place] [address] 07/26/2025 9:20 AM EST Office Visit [address] [phone] Bonita Ovalles MD 703 [facility] 2, [address] [place], [place] [address] Scheduled Orders Name Type Priority Associated Diagnoses Orde r Schedule OUTSIDE LAB SCAN Lab Ordered: 01/24/2021 documented as of this encounter Visit Diagnoses Not on filedocumented in this encounter Care Teams Felt Hat Steamer Relationship Specialty Start Date End Date Trey Bowman DO [address] [place] [address] PCP - General 02/15/20 02/23/23 Supa Reardon MD [address] [place] [address] PCP - General 02/24/23 documented as of this encounter
--- OUTSIDE RECORDS SUMMARY | 2025-03-02 13:23 | XMS_ITS | Encounter Summary ---
Author Organization [facility] Address [address] [facility] [place] [address] Care Team Providers Care Manager Salt Name Role Phone Supa Reardon MD Primary Care Provider [phone] Trey Bowman DO Unavailable [phone] Monica Hook MD Unavailable [phone] Jorje Ramirez MD Unavailable [phone] Bonita Ovalles MD Unavailable [phone] Supa Reardon MD Unavailable [phone] Encounter Details Date Type Department Care Team (Late st Contact Info) Description 06/17/2023 Orders Only [facility] [address] [facility] 230 [place] [address] A, Unknown Practice [address] [place] [phone] Social History Tobacco Use Types Packs/Day Years [...] 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 on file Not on file documented as of this encounter Plan of Treatment Upcoming Encounters Date Type Department Care Team (Late st Contact Info) Description 06/20/2025 1:30 PM EST Office Visit [facility] [place] [facility] [address] [place] [address] documented as of this encounter Procedures Procedure [...] filedocumented in this encounter Care Teams Manager Salt Relationship Specialty Start Date End Date Supa Reardon MD [address] [place] [address] PCP - General Internal Medicine 11/04/22 Trey Bowman DO [address] [place] [address] PCP - ACO Reach 11/06/22 03/14/24 Supa Reardon MD [address] [place] [address] PCP - ACO Reach 03/15/24 Monica Hook MD [address] [place] [address] Referring Physician Dermatology 05/14/23 Jorje Ramirez MD [address] [facility] [place] [address] Referring Physician Urology 05/14/23 Bonita Ovalles MD 703 [facility] [address], [address] [place] [address] Referring Physician Cardiology 05/14/23 documented as of this encounter
--- OUTSIDE RECORDS SUMMARY | 2025-03-02 13:23 | XMS_ITS | Encounter Summary ---
Author Organization [facility] Address [address] [facility] [place] [address] Care Team Providers Care Hospital Wellness Coordinator Name Role Phone Supa Reardon MD Primary Care Provider [phone] Trey Bowman DO Unavailable [phone] Monica Hook MD Unavailable [phone] Jorje Ramirez MD Unavailable [phone] Bonita Ovalles MD Unavailable [phone] Supa Reardon MD Unavailable [phone] Encounter Details Date Type Department Care Team (Late Contact Info) Description 01/12/2023 Orders Only [facility] [place] [facility] [address] [facility] 230 [place] [address] A, Unknown Practice [address] [place], [place] [address] Social History Tobacco Use Types Packs/Day Years [...] Date 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 Not on file Not on file documented as of this encounter Plan of Treatment Upcoming Encounters Date Type Department Care Team (Late Contact Info) Description 06/20/2025 1:30 PM EST Office Visit [facility] [place] [facility] [address] [place] [address] documented as of this encounter Procedures Procedure [...] on filedocumented in this encounter Care Teams Hospital Wellness Coordinator Relationship Specialty Start Date End Date Supa Reardon MD [address] [place] [address] PCP - General Internal Medicine 11/04/22 Trey Bowman DO [address] [place] [address] PCP - ACO Reach 11/06/22 03/14/24 Supa Reardon MD [address] [place] [address] PCP - ACO Reach 03/15/24 Monica Hook MD [address] [place] [address] Referring Physician Dermatology 05/14/23 Jorje Ramirez MD [address] [place] [place] [address] Referring Physician Urology 05/14/23 Bonita Ovalles MD [address] [facility] 2, [address] [address] Referring Physician Cardiology 05/14/23 documented as of this encounter
--- OUTSIDE RECORDS SUMMARY | 2025-03-02 13:23 | XMS_ITS | Encounter Summary ---
Author Organization [facility] Address [address] [place] [address] Care Team Providers Care Paving Rammer Name Role Phone Supa Reardon MD Primary Care Provider [phone] Trey Bowman DO Unavailable [phone] Monica Hook MD Unavailable [phone] Jorje Ramirez MD Unavailable [phone] Bonita Ovalles MD Unavailable [phone] Supa Rearodn MD Unavailable [phone] Encounter Details Date Type Department Care Team (Late st Contact Info) Description 01/13/2023 External Result Encounter [facility] External Department Unsolicited Supa Reardon MD [address] [facility] 230 [place] [address] Social History Tobacco Use Types Packs/Day Years [...] 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 file Not on file documented as of this encounter Plan of Treatment Upcoming Encounters Date Type Department Care Team (Late Contact Info) Description 06/20/2025 1:30 PM EST Office Visit [facility] [place] [facility] [address] [place] [address] documented as of this encounter [...] Trey Murray M.D.01/13/2023 3:39 PM Dictation Location: [place] [address] Transcribed By: [facility] 01/13/23 1539 Dictated By: Trey Murray DO 01/13/23 1532 Signed By: <Electronically signed by Trey Murray DO in OV> 01/13/23 1539 Narrative 01/13/2023 6:50 PM EDT [facility] Main [address] [address] [address] Scan Report Signed Patient: Gerard Chua MR#: [id number] : 1935 Acct:[id number] Age/Sex: 87 / M ADM Date: 01/13/23 Loc: CT Room: Type: [facility] Attending Dr: Supa Reardon MD Copies to: [...] Procedure Note Radiology, MD Gerardo - 01/13/2023 [facility] Main Sophia [address] [place] [address] CT Scan Report Signed Patient: Gerard Chua WMR#: [id number] : 6Acct:[id number] Age/Sex: 87 / MADM Date: 01/13/23 Loc: CT Room:Type: [facility] Attending Dr: Supa Reardon MD Copies to: [...] Trey Murray M.D.01/13/2023 3:39 PM Dictation Location: [place] [address] Transcribed By: [facility] 01/13/23 1539 Dictated By: Trey Murray DO 01/13/23 1532 Signed By: <Electronically signed by Trey Murray DO in OV> 01/13/23 153 Supa Reardon MD IMG CT PROCEDURES Final Result documented in this encounter Visit Diagnoses Not on filedocumented in this encounter Care Teams Paving Rammer Relationship Specialty Start Date End Date Supa Reardon MD [address] [place] [address] PCP - General Internal Medicine 11/04/22 Trey Bowman DO [address] [place] [address] PCP - ACO Reach 11/06/22 03/14/24 Supa Reardon MD [address] [place] [address] PCP - ACO Reach 03/15/24 Monica Hook MD [address] [place] [address] Referring Physician Dermatology 05/14/23 Jorje Ramirez MD [address] [facility] [place] [address] Referring Physician Urology 05/14/23 Bonita Ovalles MD [facility]03 [facility] [address], [address] [place] [address] Referring Physician Cardiology 05/14/23 documented as of this encounter
--- OUTSIDE RECORDS SUMMARY | 2025-03-02 13:23 | XMS_ITS | Encounter Summary ---
Author Organization [facility] Address [address] [place] [address] Care Team Providers Care Psychologist Military Personnel Name Role Phone Supa Reardon MD Primary Care Provider [phone] Trey Bowman DO Unavailable [phone] Monica Hook MD Unavailable [phone] Jorje Ramirez MD Unavailable [phone] Bonita Ovalles MD Unavailable [phone] Supa Reardon MD Unavailable [phone] Encounter Details Date Type Department Care Team (Late st Contact Info) Description 01/08/2023 Abstract [facility] [place] [facility] [address] 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 file Not on file documented as of this encounter Plan of Treatment Upcoming Encounters Date Type Department Care Team (Late st Contact Info) Description 06/20/2025 1:30 PM EST Office Visit [facility] [place] [facility] [address] [place] [address] documented as of this encounter Visit Diagnoses Not on filedocumented in this encounter Care Teams Psychologist Military Personnel Relationship Specialty Start Date End Date Supa Reardon MD [address] [place] [address] PCP - General Internal Medicine 11/04/22 Trey Bowman DO [address] [place] [address] PCP - ACO Reach 11/06/22 03/14/24 Supa Reardon MD [address] [place] [address] PCP - ACO Reach 03/15/24 Monica Hook MD [address] [place] [address] Referring Physician Dermatology 05/14/23 Jorje Ramirez MD [address] [place] [address] Referring Physician Urology 05/14/23 Bonita Ovalles MD [address] [place] [address] Referring Physician Cardiology 05/14/23 documented as of this encounter
--- OUTSIDE RECORDS SUMMARY | 2025-03-02 13:23 | XMS_ITS | Encounter Summary ---
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 file Not on file documented as of this encounter Plan of Treatment Upcoming Encounters Date Type Department Care Team (Late Contact Info) Description 06/20/2025 1:30 PM EST Office Visit [facility] [place] [facility] [address] [facility] [address] [place] [address] documented as of this encounter Procedures Procedure Name Priority Date/Time Associated Diagnosis Comments TRANSTHORACIC ECHO (TTE) COMPLETE 04/03/2023 9:02 AM EDT documented in this encounter Results * Transthoracic echo (TTE) complete (04/03/2023 9:02 AM EDT) Anatomical Region Laterality Modality Ultrasound 04/03/2023 9:02 AM EDT Narrative 04/03/2023 4:14 PM EDT [address], [address] [address] TRANSTHORACIC ECHOCARDIOGRAM REPORT Patient Name: FANI TAY Reading Physician: [id number] Shay Ovalles MD, [facility] Study Date: 04/03/2023 Ordering Provider: [id number] SHAY OVALLES MRN/PID: [id number] Fellow: Nurse: Date of /Age: 12 1935 / 87 years Nurse Sitter: Karly Lin [facility], T Gender: M Additional Staff: Height: 175.26 cm Admit Date: Weight: 75.75 kg Admission Status: BSA: 1.91 m2 Department Location: 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 Ramirez 04/10/2023 CPT Codes: Echo Complete w Full Doppler-[id number] Study Detail: The following Echo studies were [...] mmHg PIEDV: 2.19 m/s PADP: 22.1 mmHg [id number] Shay Ovalles MD, [facility] Electronically signed on 04/03/2023 at 4:14:09 PM Final Procedure Note Radiology, Radiologist, - 04/03/[address], [address], [place] [address] TRANSTHORACIC ECHOCARDIOGRAM REPORT Patient Name: FANI TAY Reading Physician: Meggan Ovalles MD,[facility] Study Date: 04/03/2023 Ordering Provider: MEGGAN OVALLES MRN/PID: [id number] Fellow: Nurse: Date of /Age: 12 1935 / 87 years Nurse Sitter: Ngozi ANDRADE RVT Gender: M Additional Staff: Height: 175.26 cm Admit Date: Weight: 75.75 kg Admission Status: BSA: 1.91 m2 Department Location: [facility] Blood Pressure: 130 /74 mmHg Study Type: TRANSTHORACIC ECHO (TTE) COMPLETE Diagnosis/ICD: 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 Ramirez 04/10/2023 CPT Codes: Echo Complete w Full Doppler-[id number] Study Detail: The following Echo studies were [...] mmHg PIEDV: 2.19 m/s PADP: 22.1 mmHg [id number] Shay Ovalles MD, [facility] Electronically signed on 04/03/2023 at 4:14:09 PM Final us Generic External Data Provider CV ECHO PROCEDURE S Final Result documented in this encounter Visit Diagnoses Not on filedocumented in this encounter Care Teams Power And Recovery Shift Engineer Relationship Specialty Start Date End Date Supa Reardon MD [address] [place] [address] PCP - General Internal Medicine 11/04/22 Trey Bowman DO [address] [place] [address] PCP - ACO Reach 11/06/22 03/14/24 Supa Reardon MD [address] [place] [address] PCP - ACO Reach 03/15/24 Monica Hook MD [address] [place] [address] Referring Physician Dermatology 05/14/23 Jorje Ramirez MD [address] [facility] [place] [address] Referring Physician Urology 05/14/23 Shay Ovalles MD [address] [facility] [address] [place] [address] Referring Physician Cardiology 05/14/23 documented as of this encounter
--- OUTSIDE RECORDS SUMMARY | 2025-03-02 13:23 | XMS_ITS | Encounter Summary ---
Author Organization [facility] Address [address] [facility] [place] [address] Care Team Providers Care Greenskeeper Supervisor Name Role Phone Supa Reardon MD Primary Care Provider [phone] Trey Bowman DO Unavailable [phone] Monica Hook MD Unavailable [phone] Jorje Ramirez MD Unavailable [phone] Bonita Ovalles MD Unavailable [phone] Supa Reardon MD Unavailable [phone] Encounter Details Date Type Department Care Team (Late Contact Info) Description 04/22/2023 Orders Only [facility] [place] [facility] [address] [facility] [address] [place] [address] A, Unknown Practice [address] [place], [place] [phone] Social History Tobacco Use Types Packs/Day Years [...] 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 Not on file documented as of this encounter Plan of Treatment Upcoming Encounters Date Type Department Care Team (Late Contact Info) Description 06/20/2025 1:30 PM EST Office Visit [facility] [place] [facility] [address] [place] [address] documented as of this encounter Procedures Procedure Name Priority Date/Time Associated Diagnosis Comments SCANNED LABS Routine 04/22/2023 10:33 AM EST documented in this encounter Results * SCANNED LABS (04/22/2023 10:33 AM EST) us Unknown Practice A LAB CHG PERFORMABLES Final Re sult documented in this encounter Visit Diagnoses Not on filedocumented in this encounter Care Teams Greenskeeper Supervisor Relationship Specialty Start Date End Date Supa Reardon MD [address] [place] [address] PCP - General Internal Medicine 11/04/22 Trey Bowman DO [address] [place] [address] PCP - ACO Reach 11/06/22 03/14/24 Supa Reardon MD [address] [place] [address] PCP - ACO Reach 03/15/24 Monica Hook MD [address] [place] [address] Referring Physician Dermatology 05/14/23 Jorje Ramirez MD [address] [place] [address] Referring Physician Urology 05/14/23 Bonita Ovalles MD [address] [place] [address] Referring Physician Cardiology 05/14/23 documented as of this encounter
--- OUTSIDE RECORDS SUMMARY | 2025-03-02 13:23 | XMS_ITS | Encounter Summary ---
Author Organization [facility] Address [address] [facility] [place] [address] Care Team Providers Care Fig Washer Name Role Phone Supa Reardon MD Primary Care Provider [phone] Trey Bowman DO Unavailable [phone] Monica Hook MD Unavailable [phone] Jorje Ramirez MD Unavailable [phone] Bonita Ovalles MD Unavailable [phone] Supa Reardon MD Unavailable [phone] Encounter Details Date Type Department Care Team (Late st Contact Info) Description 06/18/2023 Orders Only [facility] [address] [facility] [address] [place] [address] A, Unknown Practice [address] [place] [phone] Social History Tobacco Use Types Packs/Day Years [...] 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 Not on file documented as of this encounter Plan of Treatment Upcoming Encounters Date Type Department Care Team (Late st Contact Info) Description 06/20/2025 1:30 PM EST Office Visit [facility] [place] [facility] [address] [place] [address] documented as of this encounter Procedures Procedure Name Priority Date/Time Associated Diagnosis Comments SCANNED LABS Routine 06/17/2023 9:33 AM EST documented in this encounter Results * SCANNED LABS (06/17/2023 9:33 AM EST) us Unknown Practice A LAB CHG PERFORMABLES Final Re sult documented in this encounter Visit Diagnoses Not on filedocumented in this encounter Care Teams Fig Washer Relationship Specialty Start Date End Date Supa Reardon MD [address] [place] [address] PCP - General Internal Medicine 11/04/22 Trey Bowman DO [address] [place] [address] PCP - ACO Reach 11/06/22 03/14/24 Supa Reardon MD [address] [place] [address] PCP - ACO Reach 03/15/24 Monica Hook MD [address] [place] [address] Referring Physician Dermatology 05/14/23 Jorje Ramirez MD [address] [place] [address] Referring Physician Urology 05/14/23 Bonita Ovalles MD [address] [place] [id number] Referring Physician Cardiology 05/14/23 documented as of this encounter
--- OUTSIDE RECORDS SUMMARY | 2025-03-02 13:30 | XMS_ITS | CCD ---
Author Organization [facility] [place] Care Team Providers Care Senior [employer] Name Role Phone Trey العلي Unavailable Unavailable [...] UnavailFani Polanco Unavailable María Stevenson II Unavailable [phone] DO Trey العلي Primary Care Provider MD María Stevenson II Attending Provider MD Rubio Pineda Attending Provider [phone] NO FAMILY, PHYSICIAN Primary Care Provider Unava ilable BENJI Shaffer Attending Provider Unavailable Unavailable Dr. Bonita Kingsley Attending Anastasia Dr. Trey Sherwood Primary Care UnavaBENJI Hernández Attending Provider BENJI Shaffer Attending Provider DO Trey العلي Primary Care Provider [phone] DR KRISTIN ROME Attending Unavailable DR TREY العلي Primary Care Unavailable SAEZ ., GRICELDA Consulting Unavailable DR KRISTIN ROME Admitting Unavailable [...] Unavailable ZOHRA, DR HOANG Primary Care [facility] Unavailable WEST, DR ORLY Dowling Consulting Unavailable MCGUIRE ., DR KRISTIN Molina Admitting Unavailable MCGUIRE ., DR KRISTIN Molina Attending Unavailable MCGUIRE ., DR KRISTIN Molina Consulting [facility]available [facility] Primary Care Unavailable MCGUIRE ., DR KRISTIN Molina Consulting Unavailable MCGUIRE ., DR KRISTIN Molina Admitting Unavailable MCGUIRE ., DR KRISTIN Molina Attending Unavailable [facility] Attending Unavailable [facility] Admitting Unavailable ZOHRA, DR HOANG Primary Care Unavailable DO Trey العلي Primary Care Provider DO Trey العلي Attending Provider [phone] MD María Anderson Primary Care Provider MD María Anderson Attending Provider [phone] BENJI Lin Emergency Provider María Anderson Unavailable Dr. Trey العلي Primary Care Unagrady Kingsley, Dr. Bonita Greenberg Referring Anastasia vailable Josr, Dr. Bonita Greenberg Attending Anastasia vailable Ema Watts Unavailable BENJI Shaffer Attending Provider MD Julio C Ramirez Attending Provider [phone] BENJI Shaffer Attending Provider María Anderson MD Primary Care Provider MD María Anderson Primary Care Provider [phone] MD Julio C Ramirez Attending Provider BENJI Shaffer Attending Provider [phone] DO Tay Wood Emergency Provider DO Isai [...] Provider MD Jarod Hills Other Provider David [facility] Kelly Burgos Other Provider MD Emily Latham Other Provider MD María Anderson Primary Care Provider [phone] MD Rubio Crooks Jr Emergency Provider DO Isai May Admit Provider [phone] DO Isai May Attending Provider MD Betty Buchanan Attending Provider MD Rubio Waite Other Provider MD Aspen Bishop Other Provider BELKYS Tyler-C Mona Burgos Other Provider DO Roly Morales Other Provider MD María Stevenson II Other Provider DO Ramses Garcia Other Provider MD Swati Sagastume Emergency Provider [phone] MD Hilario Skelton Admit Provider [phone] MD Hilario Skelton Attending Provider MD Swati Sagastume Emergency Provider [phone] MD Hilario Skelton Admit Provider MD Ashley Merritt Attending Provider MD Radha Woodward Other Provider MD Henry Clark Other Provider BENJI Schmidt Other Provider DO Kel Juan Jr Other Provider MD Elver Cifuentes Other Provider MD Henry Clark Admit Provider MD Henry Clark Attending Provider Karen RN Autumn Other Provider Unavailable ANA Chaudhry Other Provider Unavailable ANA Koenig Other Provider Unavailable ANA Ley Other Provider Unavailable Ramiro RN Macrina Other Provider Unavailable MD Bebe Ivey Other Provider DO Tracy Bar Other Provider [phone] MD Jose Kelsey Other Provider [phone] DO Parviz Roth Other Provider MD Hilario Skelton Other Provider MD Ashley Merritt Other Provider MD Jaguar Brewer Other Provider Unavailable BENJI Claros Other Provider MD Donnell Amos Other Provider MD Best Junior Other Provider MD Betty Buchanan Other Provider MD Yoni Zarco Other Provider DO Isai May Other Provider MD Hola Parkinson Other Provider MD Bunny Fowler Other Provider Adriana SOLE BUFFER-C Tara Choi Other Provider BENJI Ruvalcaba Other [...] Other Provider MD Norma Box Other Provider [phone] BENJI Alston Other Provider MD Aidan Knight Other Provider MD Wesly Palmer Other Provider Uriostegui, RN Naheed Other Provider Unavailable DO Roly Morales Attending Provider DO Mick Putnam Emergency Provider MD Donnell Amos Admit Provider MD Donnell Amos Attending Provider MD Minna Patricia Admit Provider MD Minna Patricia Attending Provider DO Buck Glover Other Provider MD María Anderson Primary Care Provider MD Rubio Crooks Jr Emergency Provider DO Isai May Admit Provider MD Betty Buhcanan Attending Provider MD Rubio Waite Other Provider MD Aspen Bishop Other Provider BELKYS Tyler-C Mona L Other Provider DO Roly Morales Other Provider MD María Stevenson II Other Provider DO Ramses Garcia Other Provider MD Swati Sagastume R Emergency Provider [phone] MD Hilario Skelton Admit Provider MD Ashley [...] Other Provider MD Ashley Merritt Other Provider [phone] MD Jaguar Brewer Other Provider Unavailable BENJI Claros Other Provider MD Donnell Amos Other Provider MD Best Junior Other Provider MD Betty Buchanan Other Provider MD Yoni Zarco Other Provider DO Isai May Other Provider MD Hola Parkinson Other Provider MD Bunny Fowler Other Provider Adriana SOLE BUFFER-C Tara Choi Other Provider BENJI Ruvalcaba Other [...] Other Provider MD Norma Box Other Provider [phone] BENJI Alston Other Provider MD Aidan Knight Other Provider MD Wesly Palmer Other Provider Gila, ANA Farfan Other Provider Unavailable DO Roly Morales Attending Provider DO Mick Putnam Emergency Provider MD Minna Patricia Admit Provider [phone] MD Minna Patricia Attending Provider DO Buck Glover Other Provider DO Alec Bliss Emergency Provider MD Bright Lopez Admit Provider MD Bright Lopez Attending Provider DO Ramses Garcia Attending Provider [phone] María Anderson MD Primary Care Provider Frank Hook MD Unavailable [phone] uJlio C Ramirez MD Unavailable [phone] Bonita Kingsley MD Unavailable [phone] María Anderson MD Unavailable BONITA KINGSLEY Referring Unavailable MONICAMARÍA BASHIR Primary Care Unavailable Trey العلي DO Unavailable María Anderson MD Primary Care Provider [phone] Bonita Kingsley MD Attending Provider Gely Lin APRN Emergency Provider Radha Woodward Consulting Unavailable Hilario Skelton Admitting Unavailable Monica María Primary Care Unavailable Jamia Merritta Attending Unavailable Henry Clark Consulting Unavailable Cherelle Schmidt Consulting Unavailable Kel Juan Jr Consulting UnavailElver Schwartz Consulting Unavaila Rubio Forrest Consulting Unavailable Aspen Bishop Consulting Unavailable Mona Tyler Consulting Unavailable Roly Morales Consulting Unavailable María Stevenson II Consulting UnavailRamses Heller Consulting Unavailable Minna Patricia Attending Unavailable Minna Patricia Admitting Unavailable Monica María Primary Care Unavailable Buck Glover Consulting Unavailable Henry Clark Admitting Unavailable Autumn Jones Consulting Unavailable Henry Clark Attending Unavailable Monica María Primary Care Unavailable Joy Chaudhry Consulting Unavailable [...] Madeline Ruvalcaba Consulting Unavailable Bright Lopez Consulting UnavailPaul Deleon Consulting Unavailable Estiven Sharpe Consulting Unavailable Kang Enriquez Consulting Unavailable Buddy East Consulting Unavailable Sherry Gonzalez Consulting Unavailable Bj Hess Consulting Unavailable ObikaItalia Consulting Unavailable Home Marino Consulting Unavailable DaromarMinna Consulting Unavailable Kaitlynn Lewis Consulting Unavailable Eleni Gill Consulting Unavailable AlahmadRegis Consulting Unavailable Pedrito Prather Consulting Unavailable Fred Yanes Consulting Unavailable Charley Butcher Consulting Unavailable Marcelo Sharpe Consulting Unavailable Norma Box Consulting Unava ilable Rubi Alston Consulting Unavailable Aidan Knight Consulting Unavailable Wesly Palmer Consulting Unavailable Naheed Uriostegui Consulting Unavailable Gely Lin Admitting Unavailable Gely Lin Attending Unavailable [facility] Primary Care Unavailable Roly Morales Admitting Unavailable Roly Morales Attending Unavailable [facility] Care Unavailable [facility] Care Unavailable Bonita Kingsley Admitting Unavailable Bonita Kingsley Attending Unavailable Ramses Garcia Attending Unavailable Ramses Garcia Admitting Unavailable [facility] Unavailable Roly Morales Admitting Unavailable Roly Morales Attending Unavailable [facility] Unavailable Bright Lopez Attending Unavailab Bright Rios Admitting Unavailab joshua [facility] Primary Care Unavailable Rubio Waite Consulting Unavailable Isai May Admitting Unavailable [facility] Unavailable Betty Buchanan Attending Unavailable Aspen Bishop Consulting Unavailable Mona Tyler Consulting Unavailable Roly Morales Consulting Unavailable María Stevenson II Consulting UnavailRamses Heller Consulting Unavailable Julio C RAMIREZ Attending Unavailable Julio C RAMIREZ Attending Unavailable Julio C RAMIREZ Admitting Unavailable Julio C RAMIREZ Attending Unavailable Bonita Kingsley MD Unavailable [phone] Shiraz Blackwood Attending Unavailabl e Shiraz Blackwood Admitting Unavailchristopher e Jaison, Shiraz Mcconnell Attending Unavailabl e Shiraz Blackwood Attending UnavailMARÍA Esparza Referring Unavailable Shiraz Blackwood Attending UnavailShiraz Lang Admitting UnavailMaría Esparza MD Primary Care Provider BONITA KINGSLEY Attending Unavailable KINGSLEY, MESA M Referring Unavailable [facility] Primary Care Unavailable KINGSLEY, BONITA M Attending Unavailable KINGSLEY, MESA M Referring Unavailable [facility] Primary Care Unavailable KINGSLEY, MESA M Attending Unavailable KINGSLEY, MESA M Referring Unavailable [facility] Primary Care Unavailable HILL, MARÍA L Referring Unavailable DIDION, MARIA FERNANDA Burgos Attending Unavailable HILL, MARÍA L Attending Unavailable JAYY JOSHUA Attending Unavailable JAYY JOSHUA Attending Unavailable RISALIROSALINDA HERNANDEZ Attending Unavailable HILL, MARÍA L Referring Unavailable HILL, MARÍA L Referring Unavailable DIDION, MARIA FERNANDA Burgos Attending Unavailable FRANK HOOK Attending Unavailable PETR PERLA Attending Unavailable BUCK GLOVER Referring Unavailable HILL, MARÍA L Referring Unavailable DIDION, MARIA FERNANDA Burgos Attending Unavailable RISROSALINDA MARINO Attending Unavailable HILL, MARÍA L Referring Unavailable Copsey, Marisela M Admitting Unavailable Copsey, Marisela M Attending Unavailable [facility] Unavailable Copsey, Marisela M Admitting Unavailable Copsey, Marisela M Attending Unavailable [facility] Unavailable Copsey, Marisela M Admitting Unavailable Copsey, Marisela M Attending Unavailable [facility] Unavailable Copsey, Marisela M Admitting Unavailable [facility] Unavailable Copsey, Marisela M Attending Unavailable Copsey, Marisela M Admitting [facility]available [facility] Copsey, Marisela M Attending Unavailable Darío Bonnereem R Attending Unavailable [facility] Unavailable Dolce, Erasmo R Admitting Unavailable Copsey, Marisela M Admitting Unavailable [facility] Un[facility] Copsey, Marisela M Attending Unavailable Copsey, Marisela M Admitting Unavailable Copsey, Marisela M [facility]ending [facility] Copsey, Marisela M Admitting Unavailable Copsey, Marisela M Attending [facility] Unavailable Copsey, Marisela M Admitting Unavailable Copsey, Marisela M Attending Unavailable [facility] Un[facility] Copsey, Marisela M Attending [facility] Unavailable Copsey, Marisela M Admitting Unavailable Copsey, Marisela M Attending Unavailable Copsey, Marisela M Admitting Unavailable [facility] Unavailable Copsey, Marisela M Attending Unavailable Copsey, Marisela M Admitting Unavailable [facility] Care Unavailable Copsey, Marisela M Admitting Unavailable [facility] Care Unavailable Copsey, Marisela M Attending Unavailable Copsey, Marisela M Admitting Unavailable [facility] Care Unavailable Copsey, Marisela M Attending Unavailable Dolce, Erasmo R Admitting Unavailable Dolce, Erasmo R Attending Unavailable [facility] Care Unavailable Dolce, Erasmo R Attending Unavailable Dolce, Erasmo R Admitting Unavailable [facility] Care Unavailable Copsey, Marisela M Admitting Unavailable Copsey, Marisela M Attending Unavailable [facility] Care Unavailable Copsey, Marisela M Attending Unavailable Copsey, Marisela M Admitting Unavailable [facility] Care Unavailable Copsey, Marisela M Admitting Unavailable Copsey, Marisela M Attending Unavailable [facility] Care Unavailable Copsey, Marisela M Attending Unavailable Copsey, Marisela M Admitting Unavailable [facility] Primary Care Unavailable Copsey, Marisela M Admitting Unavailable [facility] Primary Care Unavailable Copsey, Marisela M Attending Unavailable Copsey, Marisela M Admitting Unavailable [facility] Care Unavailable Copsey, Marisela M Attending Unavailable Copsey, Marisela M Admitting Unavailable [facility] Unavailable Copsey, Marisela M Attending Unavailable Copsey, Marisela M Admitting Unavailable [facility] Care Unavailable Copsey, Marisela M Attending Unavailable Copsey, Marisela M Admitting Unavailable [facility] Care Unavailable Copsey, Marisela M Attending Unavailable Allergies Allergy Classification Reported Allergen(s) Allergy Type Date of Onset Reaction(s) Facility Aminoglycosides (antibiotic) (1 source) Neomycin Drug Allergy 12-20-19 24 itch and rash, rash [facility] Bacitracin (1 source) Bacitracin Drug Allergy 12-20-19 24 itch and rash, rash [facility] Penicillins (antibiotic) (2 sources) Amoxicillin Drug Allergy 12-20-19 24 Swelling of Lip/Tongue/Thr oat, Anaphylaxis [facility] (20 sources) Amoxicillin; Translations: [Amoxicillin CAPS] Drug Allergy 03-07-20 14 Angioedema, Swelling [facility] Work Phone: (20 sources) Bacitracin; Translations: [bacitracin] Drug Allergy 01-20-20 19 Unknown [facility] (20 sources) Neomycin; Translations: [neomycin] Drug Allergy 01-20-20 19 Unknown [facility] (17 sources) Polymyxin B; Translations: [Polymyxin B Sulfate SOLR] Drug Allergy 01-20-20 19 Other [facility] [address] [place] Work Phone: (20 sources) Penicillins; Translations: [Penicillins] Allergy to drug (finding) 03-07-20 14 Anaphylaxis [facility] (20 sources) Adhesive agent; Translations: [adhesive] Drug allergy 12-20-19 24 Unknown, Rash [facility] (4 sources) Bacitracin / Neomycin / Polymyxin B Drug Allergy rash [facility] Other (3 sources) Penicillin V Drug Allergy Unknown [facility] Other (20 sources) Amoxicillin; Translations: [Amoxicillin] Drug Allergy 02-05-20 22 Swelling of Lip/Tongue/Thr oat [facility] (20 sources) polymyxin B; Translations: [POLYMYXIN B] Allergy to substance 01-20-20 19 Rash and itch, Rash and itch, rash [facility] (1 source) Penicillin Drug Allergy Unknown [facility] Other (5 sources) Penicillins Drug Allergy 03-07-20 14 Angioedema, Other, Rash, Swelling, Unknown [facility] Work Phone: (20 sources) Penicillins Drug Allergy 03-07-20 14 Other, Rash, Swelling, Angioedema [facility] (20 sources) Wound Dressing Adhesive Drug Allergy 12-21-19 24 Rash [facility] (1 source) Penicillins Drug allergy (disorder) 06-15-19 25 [facility] Repository (2 sources) metroNIDAZOLE; Translations: [Flagyl] Drug Allergy [facility] Repository (2 sources) beta-Blocking agent; Translations: [BETA-BLOCKERS (BETA-ADRENERGI C BLOCKING AGTS)] Propensity to adverse reactions to drug 12-13-19 25 Other [facility] Work Phone: (1 source) Penicillins Drug Allergy 03-07-20 14 Angioedema, Other, Rash, Swelling, Unknown [facility] Work Phone: Medications Current Medications Medication Drug Class(es) Dates [...] 01, 2021 9:25am Start: 12-19-2020 End: 10-01-2021 [id number] 200 actuat albuterol 0.09 mg/actuat metered dose inhaler (20 sources) beta2-Adrenergic Agonist Start: 06-13-2024 End: 06-13-2025 take 2 puff(s) by inhalation every six hours for wheezing albuterol HFA (Ventolin HFA) 90 mcg/act inhaler Indications: Centrilobular emphysema (HCC) Inhale 2 puffs every 6 [...] PO Daily December 19, 2023 11:00pm atorvastatin 40 mg oral tablet (20 sources) HMG-CoA Reductase Inhibitor Start: 12-20-2023 Atorvastatin 80 mg tablet Active 40 MG PO Daily December 19, 2023 11:00pm Start: 07-20-2023 End: 10-17-2025 take 1 tablet by mouth in the morning atorvastatin (Lipitor) 40 MG tablet Indications: Coronary artery disease involving [place] coronary artery of [place] heart without angina pectoris Take 1 tablet [...] 07, 2020 12:00am May 25, 2020 10:48am fluticasone propionate 0.05 mg/actuat metered dose nasal spray (7 sources) Corticosteroid Start: 12-04-2024 fluticasone (F lonase) 50 MCG/ACT nasal spray 2 sprays in the morning. 12/04/2024 Active Start: 12-04-2024 take 2 spray(s) nasa l route once daily fluticasone (Flonase) 50 mcg/actuation nasal spray Administer 2 sprays into each nostril once daily. 12/04/2024 Active losartan potassium 25 mg oral tablet (8 sources) Angiotensin 2 Receptor Ca Start: 12-12-2024 End: 12-12-2025 take 0.5 tablet by mouth once daily losartan (Cozaar) 25 mg tablet Indications: Congestive heart failure, NYHA class 2, unspecified congestive heart failure type , Essential (primary) hypertension Take 0.5 tablets (12.5 mg) by mouth once daily. decrease 45 tablet 3 12/12/2024 12/12/2025 Active Start: 11-24-2024 End: 12-12-2024 take 1 tablet by mouth once daily losartan (Cozaar) 25 MG tablet Indications: Congestive heart failure, NYHA class 2, unspecified congestive heart failure type (HCC) Take 1 tablet (25 mg) by mouth Daily 30 tablet 3 11/24/2024 Active Magnesium Oxide, Elemental, 400 MG tablet (6 sources) Start: 12-13-2024 take 1 tablet by mouth once daily Magnesium Oxide, Elemental, 400 MG tablet Indications: Hypomagnesemia Take 1 tablet by mouth Daily 90 tablet 2 12/13/2024 Active melatonin 10 mg oral capsule (2 sources) take 1 tablet by mouth at bedtime Melatonin 10 MG capsule Take 1 tablet by mouth at bedtime Active Multiple Vitamins-Minerals (PRESERVISION AREDS 2 PO) (20 sources) Multiple Vitamins-Minerals (PRESERVISION AREDS 2 PO) Take by mouth Active Vtyphwfz-Ihk-Cv-Diallo t-Zeaxanth (Macular Vitamin) 500-5-1 mcg-mg-mg tablet (1 source) Start: 02-26-2024 take 1 tablet by mouth once daily Rajcmrfv-Dfo-Xs-Lut-Ze axanth (Macular Vitamin) 500-5-1 mcg-mg-mg tablet Active 1 TAB PO Daily February 25, 2024 11:00pm od-yty-MH-vit T-akwqjn-vmzhnpt (PreserVision AREDS 2 Plus MV) 200 mcg-15 mcg- 5 mg-1 mg capsule (1 source) take 1 capsule by mouth once daily qv-jhz-XW-vit Y-uajzge-ukuactl (PreserVision AREDS 2 Plus MV) 200 mcg-15 mcg- 5 mg-1 mg capsule Take 1 capsule by mouth once daily. Active Nutritional Supplements (ADULT NUTRITIONAL SUPPLEMENT PO) (2 sources) take 1 tablet by mouth once daily Nutritional Supplements (ADULT NUTRITIONAL SUPPLEMENT PO) Indications: Redi Mind Cognitive Supplement Take 1 tablet by mouth Daily (Redi Mind Cognitive Supplement) Active pantoprazole 40 mg delayed release oral tablet (20 sources) Proton Pump Inhibitor Start: 01-03-2025 take 1 tablet by mouth before mealtime pantoprazole (ProtoNix) 40 MG EC tablet Indications: Gastroesophageal reflux disease without esophagitis Take 1 tablet (40 mg) by mouth in the morning. Take before meals. 90 tablet 3 01/03/2025 Active Start: 11-30-2018 take 1 tablet by chao th before mealtime pantoprazole (ProtoNix) 40 MG EC tablet Indications: Gastroesophageal reflux disease without esophagitis Take 1 tablet (40 mg) by mouth in the morning. Take before meals. 90 tablet 3 12/02/2023 Active Start: 04-27-2017 End: 05-08-2017 take 1 tablet by mouth once daily Pantoprazole (Protonix) 40 mg Tablet,Delayed Release (Dr/Ec) Discontinued 40 MG PO Daily April 27, 2017 12:00am May 08, 2017 1:00pm sertraline 25 mg oral tablet (6 sources) Serotonin Reuptake Inhibitor Start: 12-13-2024 End: 02-11-2025 take 1 tablet by mouth once daily sertraline (Zoloft) 25 MG tablet Indications: Mixed anxiety and depressive disorder Take 1 tablet (25 mg) by mouth Daily 30 tablet 2 12/13/2024 02/11/2025 Active traMADol hydrochloride 50 mg oral tablet (20 sources) Opioid Agonist Start: 06-15-2024 take 1 tablet by mouth once daily as needed for pain Tramadol 50 mg tablet Active 50 MG PO Daily as needed for pain (scale score 7-10) June 15, 2024 12:00am Start: 04-06-2024 End: 02-01-2025 take 1 tablet by mouth every eight hours for pain traMADol (Ultram) 50 MG tablet Indications: Lumbosacral spondylosis without myelopathy Take 1 tablet (50 mg) by mouth every 8 (eight) hours if needed for severe pain 60 tablet 06/13/2024 02/01/2025 Discontinued Start: 08-22-2020 End: 04-06-2024 take 50-100 mg by mouth every six hours as needed traMADol (Ultram) 50 mg tablet Take 1-2 tablets (50-100 mg) by mouth every 6 hours if needed. 02/26/2023 Active Start: 08-22-2020 End: 12-19-2020 take 1 tablet by mouth once daily as needed for pain Tramadol 50 mg Tablet Discontinued 50 MG PO Daily as needed for Pain August 22, 2020 12:00am December 19, 2020 10:49am Start: 10-28-2019 take 2 tablets by mo [...] MG tablet Indications: Coronary artery disease involving [place] heart without angina pectoris, unspecified vessel or lesion type Take 2 tablets (10 mg) by mouth at bedtime 180 tablet 3 03/09/2024 Active Start: 02-05-2020 End: 12-23-2023 Start: 05-16-2019 End: 12-23-2023 take 7.5 mg by mouth once daily Warfarin 5 mg tablet A ctive 7.5 MG PO Daily 45 December 23, 2023 1:05pm START TODAY 12/23/23 Start: 06-10-2018 End: 01-19-2023 take 2 tablets by mouth every week Warfarin 5 mg tablet Discontinued 10 MG PO 5 TIMES PER WEEK December 09, 2020 11:00pm January 19, 2023 8:51am takes every thu, thu, thu, , thu Start: 04-27-2017 End: 05-16-2019 take 1 tablet by mouth once Warfarin (Coumadin) 5 mg T ablet Discontinued 5 MG PO Once 30 May 09, 2017 12:00am May 16, 2019 5:51pm Start: 04-27-2017 End: 12-23-2023 Start: 04-27-2017 End: 12-23-2023 Start: 04-27-2017 End: 12-23-2023 Start: 04-27-2017 End: 12-23-2023 zeaxanthin (6 sources) take 1 capsule by mo uth in the morning Zeaxanthin powder Take 1 capsule by mouth in the morning. Active (11 sources) Start: 02-26-2024 Start: 12-23-2023 End: [...] oral capsule (20 sources) Cephalosporin Antibacterial Start: 12-01-2024 End: 02-01-2025 take 1 capsule by mouth every twelve hours cephalexin (Keflex) 500 MG capsule Take 500 mg by mouth every 12 (twelve) hours 12/01/2024 02/01/2025 Discontinued Start: 12-01-2024 take 1 capsule by [facility] every twelve hours cephalexin (Keflex) 500 mg capsule Take 1 capsule (500 mg) by mouth every 12 hours. 12/01/2024 Active Start: 01-19-2023 End: 02-26-2023 take 1 capsule by mouth twice daily Cephalexin 500 mg capsule Discontinued 500 MG PO Twice daily January 18, 2023 11:00pm February 26, 2023 9:30am citicoline 500 mg oral tablet (2 sources) End: 02-01-2025 take 1 tablet by mouth once daily Citicoline 500 MG capsule Indications: Redi Mind Cognitive Supplement Take 1 tablet by mouth Daily 02/01/2025 Discontinued clobetasol propionate 0.0005 mg/mg topical ointment (20 [...] 16, 2019 5:51pm Start: 05-08-2017 End: 05-16-2019 enalapril maleate 2.5 mg oral tablet (11 sources) Angiotensin Converting Enzyme Inhibitor Start: 04-18-2024 End: 04-18-2025 take 1 tablet by mouth twice daily enalapril (Vasotec) 2.5 mg tablet Indications: Congestive heart failure, NYHA class 2, unspecified congestive heart failure type Take 1 tablet (2.5 mg) by mouth 2 times a day. 180 tablet 3 04/18/2024 12/12/2024 Discontinued (Therapy completed) take 1 tablet by mouth once sinan y enalapril (Vasotec) 2.5 MG tablet Take 2.5 mg by mouth Daily Active furosemide 20 mg oral tablet (20 sources) [...] Start: 12-03-2021 take 1 capsule by [facility] twice daily at mealtime Indomethacin 50 [...] 1:00pm Start: 01-11-2016 [facility] Mobic 7.5 MG 1 tablet Orally bid for 90 days Dec, Active minocycline 100 mg oral capsule (20 sources) Tetracycline-class Drug Start: 03-16-2023 End: 04-02-2023 take 1 capsule by mouth twice daily Minocycline 100 mg capsule Discontinued 100 MG PO 2 times daily March 15, 2023 11:00pm April 02, 2023 1:12pm Start: 02-25-2021 take 1 capsule by mo [facility] twice daily Minocycline HCl - 100 [...] hours as needed for Severe Pain 10 3 December 20, 2023 December 23, 2023 1:06pm [...] January 21, 2024 7:38pm polyethylene glycol 3350 [id number] mg powder for oral solution (20 sources) [...] mEq packet Discontinued 20 MEQ PO Daily January 13, 2020 11:00pm August 22, 2020 9:55am On Hold: until restarted by your doctor predniSONE 20 mg oral tablet (11 sources) Start: 10-04-2024 End: 02-01-2025 predniSONE (Deltasone) 20 MG tablet Indications: Acute non-recurrent pansinusitis , Wheeze Take two tablets once a day for 5 days 10 tablet 10/04/2024 02/01/2025 Discontinued Sennosides (Senokot) 8.6 mg tablet (9 sources) [...] (20 sources) Inflammatory dermatosis; Translations: [Dermatitis, unspecified] Onset: 5 05-16-2020 Episodic Anxiety disorders (2 sources) Mixed anxiety and depressive disorder; Translations: [Other specified anxiety disorders] 12-13-2024 Chronic Blindness and vision defects (18 sources) Blurring of visual image; Translations: [Other visual disturbances] 06-04-2023 Episodic Cancer of bladder (20 sources) Cancer in situ of urinary bladder; Translations: [Carcinoma in situ of bladder] Onset: 3 04-06-2023 Chronic Cancer of bladder (20 sources) H/O: malignant neoplasm; Translations: [Personal history of malignant neoplasm of bladder] Onset: 3 05-17-2019 Episodic Cancer of prostate (20 sources) Malignant tumor of prostate; Translations: [Malignant neoplasm of prostate] Onset: 3 04-06-2023 Chronic Cardiac dysrhythmias (20 sources) Atrial fibrillation; Translations: [Atrial fibrillation] Onset: 5 Resolved: 5 04-30-2017 Chronic Chronic kidney disease (10 sources) Chronic kidney disease stage 2; Translations: [...] Coronary arteriosclerosis; Translations: [Atherosclerotic heart disease of [place] coronary artery without angina pectoris] Onset: 3 04-06-2023 Chronic Diabetes mellitus without complication (20 sources) Diabetes mellitus; Translations: [Diabetes mellitus without mention of complication, type II or unspecified type, not stated as uncontrolled] Onset: 9 05-02-2020 Chronic Comment on above: Pt doesn't take any meds Disorders of lipid metabolism (20 sources) Hyperlipidemia; Translations: [Hyperlipidemia, unspecified] Onset: 5 Resolved: 5 04-06-2023 Chronic Diverticulosis and diverticulitis (20 [...] [History of aortic valve replacement] Onset: 2 Resolved: 5 02-05-2020 Chronic Malaise and fatigue (20 sources) Asthenia; Translations: [Weakness] 05-16-2019 Episodic Mood disorders (2 sources) Moderate major depression ; Translations: [Major depressive disorder, single episode, moderate] 02-01-2025 Chronic Open wounds of extremities (20 sources) Tear of skin; Translations: [Laceration without foreign body, left lower leg, initial encounter] 03-05-2022 Episodic Osteoarthritis (20 sources) Degenerative joint disease of hand; Translations: [Primary osteoarthritis, left hand] Onset: 1 Resolved: 2 Chronic Other aftercare (6 sources) Drug therapy finding; Translations: [Long-term (current) use of other medications] Episodic Other aftercare (4 sources) Anticoagulant effect; Translations: [residential (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] Episodic Other aftercare (6 sources) Long-term current use of anticoagulant; Translations: [residential (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] Onset: 5 12-12-2024 Episodic Other aftercare (5 sources) Encounter for therapeutic drug level monitoring; Translations: [ENC THERAPEUTC DRUG LEVL MONITORING] Onset: 3 Episodic Other aftercare (3 sources) residential (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; Translations: [[employer] USE ANTICOAGULANTS] Onset: 3 Episodic Other circulatory disease (12 sources) History of transient ischemic attack; Translations: [...] joint] 12-19-2020 Chronic Other connective tissue disease (1 source) Other [...] Episodic Other diseases of veins and lymphatics (6 sources) Venous hypertension of lower limb; Translations: [...] body region, initial encounter] 11-20-2024 Episodic Other injuries and conditions due to external causes (1 source) Other injury of unspecified body region, initial encounter; Translations: [Other injury of unspecified body region, initial encounter] Onset: Episodic Other lower respiratory disease (20 sources) [...] Episodic Other nutritional; endocrine; and metabolic disorders (14 sources) Hypomagnesemia; Translations: [Disorders of magnesium metabolism] Resolved: 02-26-2024 Chronic Other nutritional; endocrine; and metabolic [...] health status] 03-19-2022 Episodic Residual codes; unclassified (9 sources) Body mass index 20-24 - normal; Translations: [Body Mass Index between 19-24, adult] Onset: 4 09-29-2023 Episodic Residual codes; unclassified (1 source) Inflammatory disorder 02-26-2023 Episodic Residual codes; unclassified (1 source) Beta ca contraindicated; Translations: [Procedure and treatment not carried out because of other contraindication] Onset: 5 12-12-2024 Episodic Residual codes; unclassified (2 sources) Congestion of throat; Translations: [Other general symptoms and signs] 02-01-2025 Episodic Skin and subcutaneous tissue infections (20 sources) Cellulitis; Translations: [Cellulitis, unspecified] 10-08-2021 Episodic Spondylosis; intervertebral disc disorders; other back problems (20 sources) Cervical spondylosis without myelopathy; Translations: [Spondylosis without myelopathy or radiculopathy, cervical region] Onset: 2 Chronic Syncope (20 sources) Near syncope; Translations: [Syncope and collapse] Onset: 3 02-05-2020 Episodic Transient cerebral ischemia (20 sources) Transient cerebral ischemia; Translations: [Transient cerebral ischemic attack, unspecified] Onset: 4 01-22-2024 Chronic Unclassified (1 source) Permanent atrial fibrillation; Translations: [Permanent atrial fibrillation] [...] calculi] Onset: 11-11-2023 11-11-2023 Episodic Cancer of prostate (20 sources) History [...] fracture] Onset: 12-22-2023 12-20-2023 Episodic Mood disorders (14 sources) Mood disorders Onset: 06-13-2024 06-13-2024 Other aftercare (3 sources) Taking high risk medication; Translations: [Other long-term (current) drug therapy] Onset: 04-18-2024 Resolved: 12-12-2024 04-18-2024 Episodic Other circulatory disease (1 source) H/O: heart [...] Resolved: 10-09-2021 Episodic Other connective tissue disease (20 sources) Musculoskeletal pain; Translations: [Myalgia, other site] Onset: 06-16-2019 04-30-2017 Episodic Other connective tissue disease (20 sources) Foot pain; Translations: [Pain in left foot] Onset: 06-16-2019 04-30-2017 Episodic Other connective tissue disease (1 [...] insufficiency, unspecified] Onset: 12-23-2023 12-29-2023 Episodic Other diseases of veins and lymphatics (1 source) Venous insufficiency (chronic) (peripheral); Translations: [Venous insufficiency (chronic) (peripheral)] Onset: 04-06-2023 Episodic Other injuries and conditions due to [...] 01-21-2024 Episodic Other non-epithelial cancer of skin (10 sources) History of malignant neoplasm of skin [...] [Other specified health status] Onset: 12-22-2023 Episodic Residual codes; unclassified (2 sources) Body mass index (BMI) 24.0-24.9, adult; Translations: [Body mass index (BMI) 24.0-24.9, adult] Onset: 05-18-2024 Episodic Residual codes; unclassified (2 sources) Body mass index (BMI) 23.0-23.9, adult; Translations: [Body mass index (BMI) 23.0-23.9, adult] Onset: 04-18-2024 Episodic Screening and history of mental health and substance abuse codes (18 sources) Ex-smoker; Translations: [Personal history of tobacco use] Onset: 10-11-2022 09-29-2023 Episodic Comment on above: QUIT 2000 1PPD; Spondylosis; intervertebral disc disorders; other back problems (20 sources) Sciatica; Translations: [Lumbago with sciatica, unspecified side] Onset: 12-31-2021 01-14-2020 Episodic Superficial injury; contusion (20 sources) Injury of forehead; Translations: [Contusion of other part of head, initial encounter] Onset: 12-22-2023 12-20-2023 Episodic Unclassified (20 sources) Wound ; Translations: [Traumatic wound] 02-04-2022 Unclassified (1 source) LOW BACK PAIN, UNSPECIFIED; Translations: [LOW BACK PAIN, UNSPECIFIED] Onset: 01-02-2022 Unclassified (5 sources) Onset: 09-29-2023 Resolved: 12-12-2024 09-29-2023 NEGATED: Highlighted row has not occurred!Residual codes; unclassified (8 sources) Disease Episodic Results Test Name Value Interpretation Reference Range Facility Wound Care Noteon 02-27-2025 Wound Care Note [id number] [facility] Coding Summaryon 02-26-2025 Coding Summary HTMLBase 64 VwfdvazzHKn6tJg+PGhlYWQ+P M9MWUXmX56pyUTnyZ0iJ8LPQX lOSywgQVBQTElOSyIgbmFtZT1 kaXNjZXJu IC8+ZV2oPCMvPsznnZCbp7I0s CD1Y92jtc8uJCcczUP0FNQhEb Vfiswwo9nerTc4PZvaHcngWmQ t AHSijX92DKF0eB88Op20nRTjn TKwl5nbnWy1VtUiYFUxMFM9mM kvMVwyg3BuPDLlZ67jwOLbz4P 6 QZMybOblaYJpMcPzvRS8fS2lD Zrqklhip0jeqviwOix7yz81pG Pot1B1qTM6B5OvygM6TEIjiJJ g OdubcGUNzH8xmwtyb7adelluS ePvXBYoSGk1MFa2IZJwvAprSo IrXK37XDD6XVFsxyEyK4KwWXY s mFmzDeX3e9L5Bj4VA6YFYffzB 1VNTUFSWTwvdGQ+WN33wq51Z8 GvVxvgUwm0ESHjKBK0iIT1tD0 n UPAdWYdzs5B2qAT2X7GbzuMkq y2wk7kjDLYcZBdvN98xfQDri5 K4BOSpfIS5PNElqYfcAtRhuZ8 3 Oyc+MSAgcRuwt1TiRsjxi2vrq 9exyOv2RysqRAHahpCyiAcxUQ P9w5VhVq9vIXKmlML4uEV3qL9 i QvEiTjE5DVcyE406DbXazPZoZ quzU19xT9KwtQV+FEUbAhg6GB HmrXveWA7eA8EbAIVvdufgiHM m uHepYD4eWPGteavcYVXrrL5kD BUqZ4m6OkMuEzD0ORhvG5YtQL KekywvQg36hC6wAnSvGmW9PGc u I8BhluV8ECIhuYPjOOzyGZK3A 30vk0K5BBQkEASmAFB9oZX5sK 1hbGlnbjogbGVmdDsgdmVydGl j YBywEZgeQ234AGLhwWujCyWeL GluZyBEYXRlOiAgMDkvMTQvMj AyNTwvdGQ+WDFgWVK1iTlnPHM n bSNrGBzoNb0xjLhpxQtvXA0uJ DIivurkMBEwkT5rLVFrmNQrxX lhEZ2dDAOoxlflj163AqMwYSE 0 QKRngVUkM5KqlE6mSaMeEZKdG LXzX8TbwLOdPTkuN950RSvpIh O2CUEsrjVjM9XyVFFbyZvhGpS 0 t0H5Mq5Xh8QisrqtQ1PmaJXuK cFyXjrrRJj6X8AbSubyeJW+PC 23NCYdNL72XTt8MNH3iKlrBYv i HXIkY4PwuO4fXkHbBBHuGQAxK yc+PHRhYmxlIHdpZHRoPScxMD AcQpTnnStjGC9qWb6xYFIdTHE v bTrjnHOrCnFme4pxNPCuGIlsB W3vwPnjG1CugYW8IMPoy9t2Dz 13U03uW1WweJV+EZHreMV4cHF 0 aK7sOhOlNpZ9ZPbdJ050TiOkd MOdKbwis5gfk0xhdEp5FaC9BV QuubAmsSezNZZ1b6ErYu86Z90 s IHdpZHRoPSIxNSUiIHZhbGlnb j2mnV4kWn1+PZQldSK9wQD3zL 3mYeBmFbG7KTuxG271DpEtjYZ v Kezwy9cwb3fucPp3OtSnDZCwh nVcbZckCZX8z8KjZt85W4EfnI yev3PiGxs6ud44oBQcz5E6rXA 9 U6OzTVFykvjllFHgpBwjAE3jT QAwdyrlSAMsqH3gWMOxC7x8Ak YgMaP5MTvkR8QwndT6HNPljTI g RGIvpQZPqA2afrwap2geegziF aMgASDjPUd9PUt1STIwzPpfQm NwLFT9QwL1LHC4xQBqjX0ixBk n tzxbrJ6zFqd+HMO8qQDhcNSJT T4dGteffKD+UGDaKBY2tXhoBL zbQMLuiE9kHGMeU6c9PqXqCgZ 1 ETksZ5JbozW9GRRqjHRxECNff PBLaM0wdivxd2lkahroTbKnYO VjGKd4WYy9HQSzxDmkHgLsHLE 0 KiB3VDB3tPIqeD4dvPcpsnuug G9wOyc+QfmvjHslGUB0KPa4U5 DpNre5DBCkjHmwFY0cqUIeAHr u Gg0gwIcnqFqeXD1zPAPpmhjnt 958YgHtt1rxLGWpqHXcOMbzSF Q2P85jz1A0RQIdSCTqQZR6jWR 4 aF8piHtexdcnnWXtvHgifwJid XaeFGsfVGvoI480OSKejTxrRc UsCBp0K4FaJsx1KJRyoOjkQI7 n tOXhJXltNu7ffFjvgNsmKW1lD KDxsyoxk649CsAew3nqIPIpeS NhOAqmONA0I25gu7G8LICcBDP w ELO4eGY4tY3fyFfdomjltREol NrutfSzqJbhOAffHUgmH734EE GeiOscRsNfoRs7Z8PpCmm6JFE z uWlpAO5muLZhHDquFl9jaQwuq NpcKV4uFZXglzapd867CxJcl1 gjJLEpzAYeTDcxIRF0B09la0B 6 SOYdNWMfUUU5uEM1pX5mdOlia jogbGVmdDsgdmVydGljYWwtYW mjY794RKJmkErwIvIlsFjsqiR g NSfuWVs4Z2KeJssatRM+PC90Y TVwTF78rJXtmIIzu6abtHh8Dx DsJBVsJTT3rVzhWTjhn5SpMEU t Z79eaPSsb9J4UUQsfJtchHHmM lHtgZN7wU8vQLmyvajde5ajid uiHvckp6razn72kR67Q77bJGw p FCBdVXGmSMCgXGLjiZzkcw3aw G9wIi8+LJDrjQH4bPO4tN1dXR IuDrL1QOpsS586HvUldKRoYqs j a7pro2dkpVd0HaQ4VDCflbWpg PnsARJ0l6BoAh34K53dQUnxIB PuNGBgPABcUTVbsKajvy0wtX5 w Ii8+ZJZovAP5tEC3uE2tHoKfT tV0EIcdY210QmQmhZVfVkbrI7 0vW3NxxHW+WOUpQwz5IOEdiNg s YG9upAWqOWzsLu6aHFS0ZcCwZ gLrRIqbH9GpVJXlzttvzgynoD M2XPIsMWYiwX94Ew3vsJedEAN w iJSQdI2aldrgf5ovbebrZyDgA FAvLRb7ZEw1ZVWctYjvNhNoRE I6OqF4JFA2xILxiM4tsMuhzmz g eN9xB2ZgRVSmefiuSo22cB1mY yCqBiO6EQplTer+RklTSCwgSk FNRVMgVzwvdGQ+EVXjQBB0iJx l ZHktZXDfhK8aTVPhI2y5QyFkV pR1TFacL4CoJJYhbwaaQp64mT 1hSlWbTyV0TTpaQ6QouoV8WLX w hMNsFQwiWRJ9U13ko5N3XZOvJ ANrCYS5iMB6fC7zsSklwayyaA OveCloiuPvfDqoKLlvURssH74 6 OKNobHnyDhDnZuK7ZeY5JpX3G 5WoJgq6SBQeoPqdVV8jrXFtOJ dhRp6phLdfhTanOC5qDGPwfgj w SAOhkR1rEZTcyZSanBsqUU5qP NZpnbzbr205FkPhKBD1QVCepV OkB0GwlH1mNtRdOWGcYKUnS0Y l sNLzSYccY607VPvnVtL8QEVkf mPtH9BuQFYmcEexPtV0b1U8Hv 44OCBZZWFyczwvdGQ+PHRkIHN 0 kWwtNKqnAPRzeZ7hMPQyW3n4G vKsKwX3CNeiZ9LeTVLgpngdQe 12wJ9tCbBhOnZ3KYovU3VctsX 6 UTBwuXSvQKfoLYA1M43zq5K0K RBuXYLcIIW1aPF1jX5msGajij ogbGVmdDsgdmVydGljYWwtYWx p R611RQTtkBmlFf9RKRD8D3JuJ wb8EPGenPhhGT4kdOLhOBuuLh 1wbXyunIhlZX5iVFWdqjelFJT k uT1yEZAvsXHswRamGB6cZTAed uzfw927HvDsULE4ZCImrINxM1 WdhG8pAoMaFINvTIUhJ1PznGO t KEifL980NFncVvV2UHKczhIqR 3GeXRSncMfoZuA7j8W8Ad9TKV wvdGQ+QC79bm37V9QgPuqhSpc 0 CIPcDCD8zDR3uU8pUZNrTEuqa 5K8vOQ8O4TukjFtjh8rb6esLV MoWKokI45jaJZks3Y0NTNlvSG 5 YFXdgUsgFcQcsN48Lyw+PGNvb Uafq6McSfmfd2jrx1lbyIl0Na LmONTlcnReuKquNZE9t8XyGt7 8 T15dHZpgDEFvTZDdESBzZQOif Uarlt7igV7gHr5+QXFpnHW5sG J9gX5bKfYaFlH1RYeyF026AqW v fTUyFcafs4xcs2lyyUk1PyRxO EAbynJdiZsyVFW0m1SaIi34T4 MerWpwi0WeYwk2gi21nMJew4L 5 jIK5B1AjGHPrepskgIUxaFqrK R6mGPGuwxodCQItiK6aSCQqM3 m8UuYwUtI7RPcaL8PfdqO2FEZ v kFOcVGBmvUTRrI2cburxe0iab ridZyIrAGQcUAr9IDg6NYTmpG gbFzFrFHX2IuN2LIQ8sTZojF4 h tGmxisdtbT4jVzw+UZq3i1jnz CMdJE9vgPR9FI17SM57gMQqo9 G1rRI1I3HsVLKngalbyfrcdHX 6 XDBzRANfeZ98Ip1doZcyNp7lC LQgPIA8WPMhyHVyJ0TmnN0yJr SdHUWfKTRdY8JofPGvELmnC85 6 OWwyPiB2TNOjzvAzR6SrBRCvs SydBgF1i5S9Fr1PSF35WC07FJ 24cUPid0U5jLT6Y5CcUEYtmnq t nutuhCS8IIRxDLAdvI88Hq9pn HlcHt1cUVKsZMB9MTOnpSLiV6 KkwM5jQdVzTATlBDHxE3MqqLR t HDzyE491KDwrUhO8JWOfsxVtR 7ElFSSsjIpiZnQ7s4U2Uh9BBz 74BH27KD95zJGek9R2cYM5L0X h ZVJtbhqnklmqmKB3BDQzDGNil B81Cc4ezKfdQh0yAXPwBZF9XC TxlVEyT9KcmM6oDiFpFLGkLDO w X4BufQPtXBflE125INuhJzZ2G HIdftXqE7OiMUGdjXzwOlH7x5 K5Yh1WVJqbpin5L2JrYocxbNS + CD13MNYyLE15nTDfmMLum2jgi Ty7AwRfFFQpLXC9bUseLOmeb5 CiGBLwF21itAGij7A3BPRqjCj h cHN (more content not included)... [facility] Coding Summaryon 02-16-2025 Coding Summary HTMLBase 64 DvhkfqqwCYo8bHy+PGhlYWQ+P I3UPWSwN95egVDncJ8jY9TOZH lOSywgQVBQTElOSyIgbmFtZT1 kaXNjZXJu IC8+QX6dSBEyJtbzqDXiu5S5b ST8U16qmw8rQWgqxGT1PAXoEr Gdbnywa3qevWl6PGpjCdkuToI t SDPgiF49FHR0lO16Cu54zBCcd RXlh2ffgMl2XoXbTFHnDOS9yQ hkHZylo5SoTVTyV46bxJPku7Y 6 JWVxnXbgyMBkClIxsQP8wW9zR Nzosnxax7gkpnzeZqe6wb37bC Enw5H2pWX1O4QfzzN1DBTsxBK g JqjiiSHQxK0hdasqf2umkombX zFdKBQtGOf7KBy6CXKjhFvpKq QeJU69JVB5VBOjopCjN2PeQGX s cLrdQwX6v8Z2Xu1QC5AFIkczN 1VNTUFSWTwvdGQ+CR37fj41N3 KbHrejDae2LWMnQPD7cMT5aU8 n IRUxJQvbk8F2fFF7D3NhosXsm n7cf9qjCOTxKDktX61ouDQfa4 D7JAYvhVJ0YZLshIfpGeDkiL8 3 Oyc+GMIrzSbuk1BjZakxv0mux 6nhsHx0ExxjDGZezdHveDhiDP U4w0KsYo2nSHWqsJH5qAT0zQ2 i InCrVcC3EGonY712LkMtdCDmJ gdvO24vI6XffHA+IIBmDjy4RM GwzEskMG4gO4AtNDLahbfzcHG m wWhbWU6tIYOmrtswZSMpqG4yT ZDaI5t9DnEuKdD3MVkfR2OkRH LatlfuKo57jX3wGsUmZyD4FNb u F0MkpkF1ZHJkeLPnRZprIFU7U 19zy2W5DKXuHNVcTLN9jLM4nL 1hbGlnbjogbGVmdDsgdmVydGl j DAibJKnyO786YHNzvTuzEkSiS GluZyBEYXRlOiAgMDkvMDQvMj AyNTwvdGQ+YGCxNOF2cEclMXW n oBToFLusGw4cwVufmMwjCJ1lI CAqsgbxVGXmgV8kUESblGAbxH reHJ6gVHTwtpkwx348SmQtWJB 0 XUPoeECeK8JfuU8nYkOuGIGoK GFwR8RsaHEyOEsoE051ROfdPd N8DZUcwdNtP6HaABLzuUasSzT 0 s6W2Ac8Vc9ObnzhwY2TcoKShU dClLlkiPSr6P1CaWrcrkRO+PC 03NZEuDC70LXl2XXE2vPyvTXb i MDZyU4JznO5kBrYnMXJtTEHsA yc+PHRhYmxlIHdpZHRoPScxMD AbYeDjaEcjEC6hZr9hFETfVSJ v aWolgZNjQgSxz6prDWRbUEclC T4kzZdpR5RmjGU4JYZge1h4Ch 51E98dE7KdbMN+OEZovLL7qBG 0 tJ1yNoAoZhO3CShxG689AuCtw XBoHaxpw3qtr3mucUq5CzA9DL CgjeUggQdpIXK0u3GfDc35O97 s IHdpZHRoPSIxNSUiIHZhbGlnb a0dhO6eCd7+KRBsuPJ9wJI8aZ 2fDtSmHzU0LZmyI263KrNmsSR v Ddnba7dqb3silKo3UlFdEDNjx nDucBhkLBR6y9BmGv55Y9KemU qmt8IhZxh7rx51mFIyf9N4pUQ 9 X1LxBSEonquomDDhmMmiYH9mB NShkwzaELBqcT4lVXUfA8c0Fc WzFnG7WUqaI5BafyA6NKHkjWY g OZTflPWWgC8qzyiej3ahoymmM cHaQMJcEQh8QZi6STKauFzpZg CrDUV8AkF9ASJ5qPCekO6esSh n pyvnrW0dZoy+PCA2uVXasYFVD A2iWeednHW+FQWjZWK4eZbyOR ztZEQdfT0jZJIfX4i0JbBvAtD 1 JJgjC6AulbW2SLVpfJQaKEOxw EUWuV1zxwlcp2whgubkFbCrOK LfKPc3WZt0ZXTsdHanYuHtLZV 0 PdG4RHA8yISmqE9ezZdulawyw G9wOyc+UwexnTidTZJ8ZEk1H6 PlAhs5XEEahKquWC8mhHIbSZv u Fh8ixAbgeHvdSN0cLJRaiawgi 449TpJow5pcWUSzxXKuHSaeQN D7M80qh2X6QGJbZUOjBFT2nDM 4 aJ3tiAwggowddVFzxItpboVji OnwOYjhBSukA450FIPmaCyhCc XvBGy5E5LzCyg7FGTydDfqHQ3 n rUZtXBztEo4veWkbuAuyKV4bW LBzumjty366IcMeq3qdRFKhoU OgMDlhFAV0I87bk8Y5MGKrNBZ w ZFA5mKA2pF5euStcwgcikWLmd JuluqZnjGdkORyeGIfcB205JH IvdKdoXgDlyUx1Y5HfMmu5PCU z kFsiDC6wfVQfJRssFh2joEtws UhtVT2hERCnjlwxw723HqAsq0 yvCPPqiNUaCRhaFXA8Q66jx1O 6 NCBpPKLyBUS3dDN2wU0bsNpsv jogbGVmdDsgdmVydGljYWwtYW bhG477DSKvcSywDwNbrJrdphN g BXkkWWj3C9JnRsoxcZS+PC90Y AJzEN27aMIssOVur7bshGj5Fc UlRDRtMWL6eVppKUncc9WsHLG t G30ivZIav3U5ECWamGtvaVIqP kBzcUW9rC2qBVtjjwvhr0pycl chQxces9bgln23dJ63Q61uUUv p OBIqWMVsWLZhZWEtgVxqvf4oz G9wIi8+VHPbiVB5bHR0uL0dVB RyTbU8WMgdR098OgUpoAVgMwc j j5ffn6cuxKs9OkH1OUZbsqIoz NukOXD3y7VxAb47E12lWMuvJX WqFTOvOLXkHSYrfVzumj9iuY4 w Ii8+TDUdqPP0wGF2eV5vNtWjP pZ4BJztA315BfNduILgQqdrK9 8tY5OpbYV+CJMiYbj2JTArtQi s KD2xpCBhDJrvFi3rNSW4HwMhQ gVzVRjvB6KlSDRxptmweejiwN C4IZKqEHYpkC61Oq6bpKecLOA w jCJDbM5gfyibh3diittjSaOwF QWlGOt6LCr2RYDmpJhwFxTxQW F6MnV3IVX0nXDiaM1afEiuzuk g fU4dJ2IuFDFtymsmRu39rA2eW hFrQnT5DVjeYtw+RklTSCwgSk FNRVMgVzwvdGQ+GZZlGTT9yLr l ANdySYHtzE8lCJMsB7d7VgZmQ zK7ILfiP1OnEKBreoxpAw52dU 1aInXaAbW9ZVhkB1EllwF8IRP w pARiVPknSTE1A10zd0T2WODoE WEtBHO5tDE5cZ7gvIsgrxnzsB CxjYsmohIkuDkeQXkcDLjqS22 6 EYZacQlaXmEwJrN7UnD5YzS4B 2PdTre8PUVtqFheLO0akFGuAS lmYl8mnVwxhJgmXH8gZDLcrpu w BUYwaI7yOAYylEYolSouAS4zY KSaoqfqd648HuOxCEB6KVIvjW RmX0QljF6gLzShWEAcGZAlF8P l oJEjZMyxY069ZIfoHsI3ZUZpr bFsT0IySMIhsDthBiO1o2H9Jy 44OCBZZWFyczwvdGQ+PHRkIHN 0 iYjkEHhoDRCeuA3nHVSmN9k6M yEyWgW7UFveT9JpBVEtmimbRd 22bX3hJzUuXsS7FVjeL8UitaF 6 EZQdaLZoWKhjKRY1J06ho3A9R PRnYTNzULO7pLY8mF4tzLmldq ogbGVmdDsgdmVydGljYWwtYWx p C874JPJpuIyaJq2LRPG7D1FsJ jx3CYWryWhaCU9dmJAxRXesKj 9tlInxzQudES6fYAIzowxnTMA k dK9aVZYohEPcaYdmHU0gBZUrc yewk450JhLyOYW4UJPslGGpS8 KjyW8rGoLkVMTvIDJoG8YqmCW t RWenN218WWepQaQ4JBRimbZmM 4FrMYJogIgvDyA0d1F3Ka8DJU wvdGQ+ZA01gp49S8NrWgzlQsi 0 NTOxSSE6hJL8dR1xQBKuPLyiv 5M3rVS6V9AqhmYgfh0nm7emXO CpQOegJ97nfKGik0R7JNPvbUI 5 YKSwlDtgJeQsnR74Gpf+PGNvb Stpj0IqVsdrv2mmu6vucCe7Yy CkOQTbdfQqpXxbVBM7r7AlLv0 8 P48yVKnoQZImSJEuKJChPDKxr Aqkbp0dwZ3bUk2+FGPpgCG1tT O4jZ8cRpJfIdC6OZdiJ677UlK v kVMtHanqb0fvx5lwqSo2EhZiJ YSpaeXowFrxAJN6r9AuLf38G4 ZpeXcua6QwGwl0ve02mBViv8M 5 fWG8P6EzVKYbgblllPNviWjaL T7vTVPtalxuVMSiyR9eWALjF2 j0CxLkYbS1EYwpI4WsrsF5BXJ v fNReXYCasMELxH3vkrsny6ocl triCoRuVRNuNUu5TTx2BCDtbA dzMgDlVMB2IrD5ESC6vDFkwC8 h tRvdslwkwL9fMwc+LMr6z8qvv OKsZU9njAJ7OE52AH25kDHfq2 F3vUO2D4CvUQEimbffozwilUL 6 PNUeRFRcdS72Le1pvKrlJt1lE NYtFCL9MCXeqGExW9VwwA1uJu BoZVKzUTHwH7TnyNShLMfjX27 6 TXvxXcM4KMDrsySkI9ZbKGFwd JjuUfH9u6T0Qq5EGU52IP07DW 82zVOqt7M3xHA8Q3UeXGFktey t oztnwIL7CVPtVKUmnY52Vu6bi XagAa2eMANnAPZ3EGNrnYAdB6 BliF0tCsTvNPSiCFJiD0YozMP t YYphA572ITkbPrG6SWUcgbMcC 8JyVYHctIkeSiE0n3O0Se4TZr 55PG25QZ49jFTij8Q5zYI8I5X h LKYmqpytpjrsdHG5UBXuXNXez S91Zv0duAltRg1vJGWiQIG7XK PuvNVgG0LdjU7vYkSbFEHqZCA w D8LxtZXzXDvyZ941WKgsVoF9E RUzboTbT3UjXSCkpRfvNwI5s7 V6Yc2IYAscsuf8T1GhFfquzZR + HQ20NQUvGE26pOShsYLmn5pwe Ly7TrTnIJIxWTP5lZdaDNotx8 UrEDLkK76wtRBpi7Z9IUTgsGm h cHN (more content not included)... [facility] Coding Summary HTMLBase 64 KjyquddxLJm3uBz+PGhlYWQ+P P3NTLCgV83tmWKokV2nM3XDIT lOSywgQVBQTElOSyIgbmFtZT1 kaXNjZXJu IC8+QJ8lQNLcSchywVWng1G4q OL7W57bur5pEWimqHV6ZJZvYi Zgawctj8mooAy1BPgoAdstFfE t VQTfyO45IPN9jW91Dw09mBTco WEqh2chlHr9JfOeGTOiUZI8dF yoEIaif4EoBQXrS19haGPat3N 6 AGCmzFqgdYThLdTpxGJ5eG0sA Gcnnshow8fqiikxEuz7ax52sG Dff7K7fWD9Q4HivcL7PBTaiXN g ZtiohFNOlS5qqzkor5nhtbjwZ yXpTEPkFDg9JPh3GKSfyRghYz TbLS27IFC8JZPkouNrQ9LqZOC s wDllSmE9j3Q1Dg1IP6LMNarkH 1VNTUFSWTwvdGQ+IR07lq84Z9 VoAwhdWun1IYTeLWS4vST7yS1 n RUWuUXrvt4M8mKI1O6SpwpWed y1sg4ybIYFaIWfqW29bjCUcl5 Y8WCLevHJ4RSLbbXirRzQukC1 3 Oyc+OYMeiPpuj9SuVbrqp6qjk 8tmsOr7NuuwWTQbfoKbxUuyUJ E7s7YlOp5tHXAqoEV5jVC5vE6 i IkLpAdY1WIlvI728LwFxiYPxP afeB27hP2CiiFQ+MTJhRab6HQ WylFebNQ9iJ4QrOQMhfzpawRZ m pSmzIB9tISQlwoioPUGaaQ2wO EBsM7l0DfBzTfA9FOxwQ1WwRX NgdzpaWh63cJ2bPpNnSnM2JYt u P7ZodoY0WOVrzPHhTSwoFON7W 29gh0Y1VWUxQBRtGVI8eKV0sC 1hbGlnbjogbGVmdDsgdmVydGl j DHclUAahM356HGZvmGmyTxJqD GluZyBEYXRlOiAgMDkvMDQvMj AyNTwvdGQ+JUEpGOO6dTewCJP n tOJtDAzwBe2ggIelmXjfWK6qQ BKdmersWZYzyF4yWVCvyOYpaQ woXH6oFMOicklxf122SvXoRMW 0 LLPxkOBnY7KpgX8aIgErQMAlH XHhC4RhvKWsZGifN281CIgySr Q1XGYgrfXyX5MkWWTwvYmoFuP 0 f2N0Ap2Lt3EmcqmbR0ZooQCfG oAlNxriRPi6H7XgUjpefHS+PC 94OIUlAH66YGx8NUS9qIolFZx i YZNeS8KjtG9cVcNjQQVcHOFyW yc+PHRhYmxlIHdpZHRoPScxMD BnOtIilXosWV6qMd5mUCVtHWO v aYbhtJTsDrJdc2txZOSeVWsuU I3hcNndW8CwfNI6AXZyw3o3Fw 52I93wV4KrmES+UIRynUB4gSV 0 zI5mHoBuEtE3UFuuZ148OeQdg BUpEokng8udg1dqtCm7VfD9XV OxurQjaXjtCBN1u9SsNz42S01 s IHdpZHRoPSIxNSUiIHZhbGlnb p0wdF1qXh9+XGOniEA9yMH5yM 0nPzIqTnI5ZFppB532ScBzyMR v Lkbsb0kmd0xwcXy6MhQkSZBmx cPqnUzeROY5d1IiZk35P1IreC wno6ZeZid1fl67qBWcb7U1jTL 9 A8OzVYPqygfpyIRcyFcmXO4fF LResaraPFDilG5sFADgB6i9Nm AcHcE4FDajR1WijwJ5PNTdpGU g HSAdyPDKkM2xmarqu3jgzgvqJ sUvAVDgTKu7TCw7LDEvzEzsYy UyXTE6DbC0FJS6zADpvG8wjLl n jjhchJ4kVzd+DLA0kYSkzEJJU C8eTlbedTA+SMZeOBD8kGliST vnZDKzjS6rQJToV5z3UtWcIlG 1 EFznV6EotiA9BSCiyGPnNKYso PRSyD2cucdek6losfkeRfSiBU EeWRs1XDp4WEYjsEjoKoYeZNO 0 OeF0TMW5bXYvvF5hkNbuydmnz G9wOyc+DzxafAbrMWU8SYj9S1 SeDmg0CCDirYimYX5nsCUiKPa u Za5kgQtodKatTH1aEHDpevrva 773YvJsz2cdESWxzEPkQTwjKD G1K56wa0N0XSOhTVWlNPE2fBF 4 uQ5vrAofkhjtqIEwqWcnedDro GiuWRntMVszQ193DKTskLijQf KcXFp0H9LfTjd1YGObxQxwWQ7 n aTOzCTruXu1hrToiiXvjVZ6lD AYjbynvg121McDig0ucKHYcuQ RdFQwlCVP1J01bz9Y9TVEaJZS w BIG8yHL7iP6guZdnuqbncBXax QftmuBscLxaAEjfLOmlW861DP GdbYtuSzRfuNl6Y2RmWbh4NET z hLlkXT6gcQKxRBsoEm5qmCgok GhxKE0aJQQkkfdlz857StVjp6 jiTIDdpKVrNJwnLIC4O83nz0M 6 FGGnXBXqVMI1pCA5pX7eoKnap jogbGVmdDsgdmVydGljYWwtYW jhZ021ZRKbcFmdFbHewKaqeaG g ZAngFZg9K3JoUsmtkOH+PC90Y LOxSY90fYRkrSQkr9cutEj2Br GsXCNhSOP9tAvsYZvtr8ClNEX t O07zeLAus2T2TQIwhCksyLXjN bSycKY7gH7bOOcaeyogu2scff sfVfzei4rujk86yT75X84eYEb p EPLcNQOgSAZnLZZeoScqng4hi G9wIi8+TLKiyHN0pWG9xW4mTO XaMjQ3BPrdW186QfNtnJTlXsc j y6ylb9vdtXt5SsI4USKnzaEgi MbhLHC5g8UqPl40P74oTMppIT QlTFApSODgWNEbsPgpoc5ppZ9 w Ii8+YIFgrGW3lHL6kR2fNmLzE vH7DDiyR242RjLeqBHyAhpiK5 9dM8XhsTL+IADrJod2FGMxhUu s LM5byYEaTWhpZi5nINW2BnScO rWwWYosX4BvBCByvcpdidjuuR Y6JFMbXKTiiI02Zl6afWbnKFG w pEEHdO1izzkpa2hvafilXcPcU PPkUZw9ERf7PCJxfMjwLoGgPE Z8PiW6QFD2iIHueY8lyAzkknd g bT6lB4JmUBRogkliQr66nH6zD nNzDgM6ODedGsw+RklTSCwgSk FNRVMgVzwvdGQ+SXSlXHI3pRg l QNbbJQDmyQ2eDGXeW8p9CtTwZ zF1JLrlE1WuZUTbgqsqIx60fA 6eRfDpIrQ3CCiuE1PphrO4XXN w bRRbSAzvCSA2S82kc6X5JWJmH XHdEBE1oMB3uF3cxFibqgrkxG RqtZgjsbEngFcmCHdvDBweW47 6 UMDubVevLzGaJkJ4FpF4LnI9R 2HlPno7KIZmyQjfDX6ydXAgTZ hqSo4snCkzaNntWL4zLLFdvlw w IHVhaI7qWFAwfTZorQsxSU4mU QSbnpuec314DhEiCIK4USRzfT TuT7XtxA3mZmGrCPCcYYJeU3J l kSYeAPtvV841KAwbLwM2XIHlv xItL0TeHGNsxLxxJmW5v3L5Aq 44OCBZZWFyczwvdGQ+PHRkIHN 0 mNaiCGjcMOOwzF4bDSRtZ5a6V cWrNkA3QNevX2NkDYXhnliiDg 99zR6dYrEhYcM9SFrnV5ZpcgM 6 LLDtuWUaMDdmFDI3V62hy5I3A AGeJVCpYVR5hLV5rJ0grVvehb ogbGVmdDsgdmVydGljYWwtYWx p B861IQGrpOaiGa5BWHI0S0KxQ rz5MUIwbIylQR8cbMDpMUcsYn 7rrEljpEhvCO2nDXRwrmcxGQD k tB5rXBBfpTRnmYymWP6uMQHuo stpc230CoToAGO1MUInkPMbU2 OrnN5qIsIqEJBiFOEgG7BxoZN t YNpyD171BPigUkP6DCVwkzPcI 3XjZDCyqVuoMlC8x0Z5Fn0BED wvdGQ+FP39oy05H7JhEgqeWkj 0 BYUnIEX2eNL9pS3xWEGwPMaca 4I5dTN2I5ScywWygb3fy8ggZA KlCNhwR98azDYwt8F5DGWhqRL 5 AULhsMcqSrPadW93Hrn+PGNvb Vcjy2NkQvuma5mbw0iuxFl6Qb AfETSygnUuyAhkKGB8e6QcSr5 8 X68jPMeyRUMpDVGuNKPoFSLfi Qtppu1pmU4kDk0+UVQviCW7uA F1zE7zDoFqGoF9QLrpB396UuX v fUAwPxhlh7jsc2ljxBg6OxTnX QEqubTewVdlPLM7d4OqXn78Y3 AzkLprw1DgEay6la81wJJdf1J 5 hPM2F1JfQJSixgnilRNdvFsdR R8tSVPniexjDMZzqH3mPLDrM1 f9RrZcEcD7IMubU8UojoR9VTA v lXQyXALvtPINrF2gubqga1lfp jyoSdMcYLLmBUa6UKv2YSNisK vxPwGfFVZ6VnO8XWJ0jKAejH4 h mZcuyniedZ9oKic+USs1o3mxk EVzWE1xrFU0II65GZ79dGPyp9 R8uUD7X1DxLSRiibxaiqihbQH 6 ECNwFYRosH29Gd1bvZivId6vY BSyBXO2GEUitSFlN4RwpY2zYp BfCPBeSXPxB1NkzBZjXMyiY52 6 EYapVhA1BCPvkyEuY6RwFQYfa TbcTgD3k1W0In2VQG79AY32SK 54qFTgy0D5xTD2J3DiTSLwade t pdtwlOI3KYUpPHOsrL28Bu9qv NgkVa1dKYBpKEA8UDGorVMuS9 PmyV3uJcEmSGVaGWTjB4QooFE t XWjhR559SIodXoB3WQOogrBhX 4AmQMRjgRqjJuU8q6P9Db2IYt 25CH86RT80mVNyg5R3fLA4V4S h XJAmpixaufnueTY9JOFwAGXbs F04Nm7yjRipLa6hGEMwMDY1AH RrxHLgV5VoxK3wJsTxJLPdAZI w W6BogHWsKOvhA053ARlmEaS5K ICvlsMcL0EtQIGbtGlxNbA3b5 H1Fr7PFAozbom5G8IuKkfruBD + LL66WTZqFB71xFYzbOOqw1lca Kb8DtVtGHVnODM4tSfzJZscn8 XpDMXyC07mxYRep3S3CLGjtVl h cHN (more content not included)... [facility] Wound Care Noteon 02-16-2025 Wound Care Note [id number]#[email or web address] FF [facility] Wound Care Noteon 02-14-2025 Wound Care Note [id number]#[email or web address] FF [facility] Coding Summaryon 02-06-2025 Coding Summary HTMLBase 64 WuygszbkORw4oNj+PGhlYWQ+P O7ZBILuH08tqNHypF9aL2LIZT lOSywgQVBQTElOSyIgbmFtZT1 kaXNjZXJu IC8+DA4aKACbFyggrWAon8F8a YG7S10tdt8wIBskpTS5TKXdWo Lcrukfl1rsgDs3EEdxJzsoLqI t SYAbwJ66TPY6vH30Lc18zUVmu EMoa1sekYb1GiOvZGBmAKC7kS lsDFdxl8UqAHKjS30vqSQro1I 6 TFHblBjotPZqJbTkkKP7iP3mB Joxuixvg4japguyXbl8vu63eK Fas0E7hTW1D4KeuiC4YPYenHJ g EuzwcIYThJ3ueqrls6kaqheiC yKmLLQkHYw2HGq5CIVbvHpjUm TpLT33EDO5EKUvxfWlU4ToBGL s vAfkUxN4x7W6Eh7TW0EGTmkqR 1VNTUFSWTwvdGQ+IT81ki86Y5 QjQwnqOpu9KFQtNFQ9cWU3qB2 n LDDiGRvyr8B9zBB8P8LndzXwv t1ao3unZUAoOIkzY39qqSCrd7 B4UKOfyHL6BWQykAzyOiKgvL7 3 Oyc+NGRsbHbqh7UlTpnwu7ylo 2dimSy9AxayCNXxnyLllYyeZN H9z3UeDl9bSAVsrVR8sYR4vE3 i XcBnFwS5BUssU795TuDxdSTfB cnuG82aJ9TceBB+PYTwLht0FA CkoUbaEU1pJ3WfKXHsfoumbUT m pZkqIQ3yJKHytdauDGLldF5zB TXfY3j3SvZfPnJ1WFncZ9GtTI RdsvtwXp50oS9gLoWpJxE2GYt u M9TzilV2AIHzpAKmLWeaVWX7K 91hw9G6XVBcHJLxQRJ7jOQ2vF 1hbGlnbjogbGVmdDsgdmVydGl j SItlFWnaR347WBIjtHjrMsKqV GluZyBEYXRlOiAgMDgvMjUvMj AyNTwvdGQ+FVBuMOL0xKvyGDN n dXNoNWqnJn0chKujpRojLN5gZ XNcdnguIBYylX6eUSGvbPOtbP tlBR2uZJUjrflqg030AcTjQHG 0 XESkuCUmS5WbnX9xAdTqSRHlL BCdZ9MxzSJgFWlaI493FTiqTt Z0CHCeajPqM6YuUGQknOdwAyX 0 e7H7Hk4Zl6SiergdC2MeiYZeD zWqUzrhRRk2B7EhFdwvdGO+PC 22VCKkEW25HJm3HBE2aMdhVBe i REOvS4GupX6pAwEnCNCvOZWfO yc+PHRhYmxlIHdpZHRoPScxMD UrJiHvlKiqNX4gKn1zEEYfLIU v nJeciJXtBiCmp0vtXWStRZasG S9pgDsnF8GrrYA1OUEdx0k8Lq 10O19oE7DlkSS+IKUziYG3oYA 0 pI6eXwAeMrL8BTllQ107CdZle XVhMfgmf9jwp9qgsXq4XuA4HD FrgrGypVldCLA2b4OaHa57I21 s IHdpZHRoPSIxNSUiIHZhbGlnb c9yuH0bWr8+PNAukRF5pPU6uD 6rPuUeIaT4QAtzY837FaLdsUP v Orgiz7mmi5ibpUu0ZbRsSVBkx tDukJjvLYT3v8IlEa39W7DrgI mxt7TlIpw3mi33fLQuf0R4eSR 9 B3MyNJLmlftflZJmeXziEX0bE MEmwxlcMBGyoK8sJEPdM3w5Wo AwUfB9RLgrE9CrepK6MFPgaQC g QLAmvGCYiJ8iwwyvi8xrqbbmZ dTqIORoHQx6SBm4XRCjmEqpMg KtCWZ4ZfT3GVC6rMScrT7zrYa n jsmdpJ8xLvi+ATF8nZFzuWNIF O1rDccljVI+ERFzRXC9dSceHD bgUCOdnA2pOGSpF9q5KzUlGuN 1 KVakX2RvdqM0YRMktGRtTTOtx LYGkH8klakhv4pkpdoiShAiNY WxAUr3AQa5CEMyaXxxDlPuPRX 0 XpG7NQK6uESryY7vrPosmumng G9wOyc+FgtemRljZKV5QGl0I1 QnCcz1DUIglTpzYD0lmRBdTTh u Kb6woIdocRuoBI3uIQWhwamzy 958ZtQyh9msOZJsrMBnPImqAB L1I76fq2D3KBHqBJNzPBT1jBY 4 hJ8pdWqdssfugLAfySimhhDnr IqsPZdmLIhhL097HJYtmKofHs VqQBq3R7EhUdz6DARxbLvmRT3 n gVJkQPpsLp9cwUrcpNizKR4tA JRtnjmhz200LiAfc0zvTAJmeM CsFVjvQBR2M97tx5X3OBGhUIO w WCB1gOL3vP1wcPznaqgwqQQpz SoursLikFtnJUyzWRylX265OU OcySnaSaTqjZz4A8EoHwp1FPY z fAofGY9aqKEsZRizSg1nhJwdt BfbFP2sCIQanejmp949FwBki0 vxHZLscQEnDMiqVAJ3P32jw4C 6 EGXzOXRvZDV6gWW9yV2jqToqp jogbGVmdDsgdmVydGljYWwtYW yjN567XHCqbRquLaBrzEmfjuL g FYlgAKt9E3QmBkwreKT+PC90Y CAsHZ79pROonXTzf4hhbUe4Kx MjHDIxKXZ9dGgiMBobb1MyRWZ t Y35xcCHlb6G2OVPpvRyevNXuD aPrhQO2oG6pADeisiqqp8rjro ecJjqqq1qdzv31pN93S50hLRq p QJQgDIJxVYDkSOAnjKyyss6dy G9wIi8+VRXoaFB6bBG7lU5bEO ZmHaM6HPgsI395DeGrmNZiXgj j h1bua4hklFw5OuT1XYDexrMcz LljJJC9u9WyGk38V05bUGzuSA ZxEMIsZVUjSAGgiTgmkt1luN6 w Ii8+FEDxhMT1dZJ0gV9uYgSuS lT6SFavU039GtIjrHFySwmaP9 9wR9UaoHG+ABKsSxy3TUQghTa s AY7bwVVgLXteVu0xBTJ7CqDrD kYgOHklM4DsJFXbcmkztwrxbW U3SSAdEAAanF70To4xcNdbAAG w vXXLcX7oqlczj7gdvtwnAzJuJ WXjUWo1TVj7JTUolYgvLeYqNR O0BlD0PFJ1bTLpfY4roYpvkxl g nZ3rG0QbFWTkptxaPe50sY9qZ pHvEmI3WBlsVfu+RklTSCwgSk FNRVMgVzwvdGQ+GNXyUVW3jGu l BDdaFQUupF6bDLGvG6h3MsIaY wT0AKhgW8KcWWElkeymUc92pT 9vFoYrQwK0FLrxD6NglkO1NPC w uTEcNGjyRNB5S14fv9W9SRGiC JUtSUZ7jWV2wR3trCzymyndmA AmqCdazcNcxUqfEGxzEPehD30 6 NLLgzUkpTrRlIeQ6CmT9GgD4A 9LbGjh9RJIaxUmbOG3ryCYrOS axGn8ffNagmGkzRW7qULOxwlq w UTHzoX6lNUTezMOvdTzmSE3eJ VEkbmwpg867FsNbOBL3GVZfnV MpG5KhkT8oBzJdHZQgNLIvU6X l pJFyUQqoC744TRziZfQ3LFLaq dStR3PhKYSleXpfYjY6v6G9Ao 44OCBZZWFyczwvdGQ+PHRkIHN 0 iEucVVttKUUhdI4lDKJjB9b4N iRkZtU8JGosC8TiHLLjslnbJc 26qW6gUcWyKwO8YFrvL4ZoapA 6 JJUtlSElRZqmTUV6G29wa4B4J HOrIREwBUH1lYY0hK0ykIqygt ogbGVmdDsgdmVydGljYWwtYWx p Z545GJIxqWtcPv4MQHW8K0HoU ki7APPsuWsdCG6rvWKaIAmtGs 0ueFzrdJnxEZ2wJMYaqpmpCIY k yO4aFJXmyDRafXvdAR9jPNBmc wcan218MzVcPNE4WHUlaGUwT8 TgzU1iBuZvYFBkMPLvJ1McgDG t TSqtG324DMpvGdX4JLLnjlSoX 5PyLBKelBxmSoZ0v5W2No6ULE wvdGQ+HH92ym96E3LgPvdjMfs 0 QAFqHIT6vRF5eW2uLOBpYYaop 5E9cVT4Y8MexiAadb7jv5ceQE HoHSzfY81wlGUpv7L0UAKujVX 5 SZPzoOepQoDddQ65Kns+PGNvb Bhdb1HxNurak5wjo7ectAt5Ft LsUBEbyqHzgGgnXWO4b0RwHc8 8 O19fHLinVJWqFXYuTQXlATWmv Gcebe6swC5aCg5+DOXhrQR5cL B7mD4cGnLkLmA5DAjmB251PaT v wFSwVyhjy2sao4knlAy6BuGhI PEvtwAziGwlXIQ5p8WpNd28T3 PigFtri2TxVjs1cd41lAUls4G 5 kMO9L3OgNFUcfwxzjZNyyLduQ N0rCSWluqqrKMBdlI4iLPRiS6 u6DhAwZvZ3FNyiZ9XxxyY6KFR v oWAiJYAkqSAOmV3ejvjce4iws vubTuOfOLBjNGa8YPi4KPTzdX ebZsByNFU1HoR7MAM8zWWwvO7 h oCephuywfA5eOtt+HUo9h8tnp CJuJM3oqDI8LO57RD48qKArq0 C6zQA2X8GaXKPufwgusmysuEH 6 YNQcKJEckR65Fh8stNidBy3rG LVgYKZ3KRLkfRMvP7TgcE0cAo ChBUTlMYTvY3XamSGiITylA98 6 LOtcIfF4QNZsqrZwD9LhZCHcw KxdNaH2a5I9Ez0VBX49JD91JN 92eWRki2E8aEC1M9FvTRLycnl t leujyCF7JCHbOBMlfK00Ts0hq BmhNi7rJFFcAJL0VFZzqXOfT8 HzkP1pGgNqHVZjYAJmJ1KkcQT t JRycR992VIemPqI8HZTtwjUlU 8FeAFIhwVjwWcZ3y6E2Vm4NJu 53DU28HM01dEJnp4Z3xSX8R8L h FETdpfsznaaveMY3NBRgASEks B98Fc8reEsbPr3zKJJrFPU2VU OvrFCzI4NcyJ0fQuDsRCXvAFY w B1ZipJLiIMsgA728LEgwLoL3A SFpqfGfQ5DgGSRviMaxEoI0v9 F7Sb9VZYabwgf9Z9UaMrpbiJU + KC85MSYrHK94wQUqvXWow6lkv Jg5IlFzEUIgCOJ9yIslFKqws1 McJPFgY04ksHTcz9B8RAIenRq h cHN (more content not included)... [facility] Wound Care Noteon 02-06-2025 Wound Care Note [id number]#[email or web address] FF [facility] Coding Summaryon 02-01-2025 Coding Summary HTMLBase 64 RvtjcobtZLe6kUe+PGhlYWQ+P I2LRBOcZ47sfOWetH3sK6GNED lOSywgQVBQTElOSyIgbmFtZT1 kaXNjZXJu IC8+VR9sSAJmCqteoGKku8H7k NE7I17ycm8kLIiibNP9PCJdGw Ewwaiqn0bibKn6HBqdQwrtLjS t VGJulG98RIE7vM81Ju65eODbb INtn2ximFc4BnPfSOCjFVN0pT ezKKzau5ElJQElJ17suQCdy6T 6 QUXbjSfmxGWaTqYuzKJ3kC8jO Iebwtxov0fxvaxwGfo8lj35hY Lwb3Q9qPO6K2OeobG3OGXyzUX g UwdvuLROuV4urmxth7hgumghU sQySGRaCMb8QNw6OSTrmQlrTo FtUP78LNC2THPikpYjO9FbIII s gKybIyG3g4W9Id5IX7CHFfuzI 1VNTUFSWTwvdGQ+TN18qa35X9 FxRxqrDze5UFEfMPB7pWI6tA8 n IHOhCGpau8L1fSF3L8IgrfSqm t6pt9djVDFtYYlgO31oxYJll7 T4PRDrlXA3CQObpTplEgBblY7 3 Oyc+FIMajTcrt2GbXquok5erp 2enwZr5SobrQDUliwOolBczPR I7c2IzXo5rSMYuhKG0eFT5hM6 i UmAjXlJ4FEejX261XyMcdPKhA pnlE43aU9HgdLS+JNGgEtg7QY LbqJygDD5jO7BpHBRwwlgwmQT m yCsoVS6xUVHtzrfmKBWhrJ0wM BJnU6m7VvErHrJ8XYixP6VeBM GhtarfLp00oR2lOzKaTgD2RSl u H8DbdjH4WIRpjTGxHSkjTAA5G 28no7N4NBWsEYJeBVR7oZE1lS 1hbGlnbjogbGVmdDsgdmVydGl j RChoXSfbI754RAWgpCrrNtIlW GluZyBEYXRlOiAgMDgvMjAvMj AyNTwvdGQ+UMNnSKC2uNjnMEL n bUXxZJtcAg6ntFeejXnuBL4vB BRyfpecHCXskE3zZXFciTJzwK jlHM4nOYJvlflyk177SoMkUTN 0 SGKmyNZqB5ApkA6fQpRfUVMiP ARtM7WsnPSkFIkmU088DLcrVw W0WXOajiMyZ7ObWCShaFvzYoR 0 w9X0De9Jk6GlvjqjR2KjfUMzA pNgAajuJPd3G5KmUmulzLR+PC 08IATqYG09SDu2QUR6iWzsHFu i BKShW2VvjI6gYeXzWAThTWQjQ yc+PHRhYmxlIHdpZHRoPScxMD YxTmQfrYarDE8gUb5wYNKlHYJ v qCsffMLfQaGzh1dcKHQmAYmrP C9raHdiP3LzcJF5DZQfc4w0Ur 38J28dY5NjkRS+UKGdtLG4rAD 0 lP0vEyMhRpO5NHfzB226MjNcq OKcNsxmz4hya3iqhPf4TzV3FC AujcYqwGinAUY6u2OgMs67B28 s IHdpZHRoPSIxNSUiIHZhbGlnb e0drL4dIo3+SCGycGU3qRG2wM 0fJwYvFpF6ASjlN827WsGgnBH v Onxlz4psh5wrmPi0GxFhQXKtq nXjuDfeQML1a6ZzWq39B2GlpA rxi0ZjYjj4gc59vKVww1D1tUM 9 O6SfBHRzztywlFTuaUeeDU3cJ SBnsqxpFSKizY1lYNHhM7p5Yl OhYhP2WKtqF9YrxdO4IYKmgSC g NXUneXGLuQ7akgucq2phtogbT kGwCWVaOPb6TTs3NHTavHwkOg SaLSC8QtX8OIR8eTMubB0bbMb n vhhbbK1zFqe+NGV8cIZcuBWUA G8yRjipsUM+VWJaWCR2gNalPC gtBINouY8aXAIlK9e0ApXdHsR 1 ZSecO4RmghO5VFYscYMlSNSgo QTRwT6kjcove6kluhsvKzCaXC BdRKy9WBq8GJLtvRyiHfAxOPG 0 RqR4OTK6rYIasP9juDpdejjve G9wOyc+EefqgYegLXN7DNe7G8 NnAmj8SFUxfRdxIM3whTYfIVv u Tz8nhWtxsGinLD2vKPHimplhm 551XjRkk8tfRCVfxXEhMEklUC Q6J81as3T3VLKkUPKnJVB4fKV 4 cT7hnVmlcwhfxIKaeBwwakOpe MocWLmaGOumE423EYApoSwcVn DjCZv7K3EnTxp7IZNtxYqoMF5 n oWQmZHxtGt2rqYpqyZntUF6eS JLleljce889IuSai8imJSKdoD HuKVxlWIU4A87bs3N1SJUkZUN w NJU9qRW1iR5qxNhlxjvgfFQqt BdgblPogSzpRQgaYBdaT636UD BpsNhnAmBadAm0T1CzNfh0MZG z aXueEX2sjLVoCJjwBg0ghLrfz LeaXG1lKCZbuboko801FxDiz8 scSECmvPJvOBzkVTC2I08il4Q 6 ELGrHACfKTP9oMD5hN6cgDlnr jogbGVmdDsgdmVydGljYWwtYW woD514SXSjwGzqInLjfWsqxnF g YRyfYIk4M2AtVcnjsZR+PC90Y CXeSA67sGTxkDDkq6yzeWw5Sl JjVEMfQLY0hQdeXVmma5UzTRL t I83hhDNod6N1OZIvhFpybLTgJ cRigXI5cB9fRGrwtysdy3wota keOiuie7djcc53bQ34H29mUMu p MRPwWCLtOZWcYMJonNbqse3js G9wIi8+ZPXtvMU6dDE1iO6eYP TmLqO1GJvfZ218KyCtcJHuUap j s2unh0nvsRf6ArQ8DMNoswKia GwjZPY0l6MbRi93W61qWFsnXV PmGZCyFFKdOTJlmQkckp5tlC8 w Ii8+AVYdbBA8mKZ5mR1ePuXmI uQ3COwmY104QwCmnPBaQttiC6 5gJ6NrdHT+MTJiTsf5COBlhLe s GR3ijXCoBZqpLp6cKMG1VoFoG hTdYIpcZ1FwLNHavlbercbmsO N2WMVaUSGkdC05Ac5lmKygFBZ w yPQKwL2xanbgl2fltahlGkZgQ PSxFPe5YNo7TLHomLafOkNmRR Q5IyX1IBT4kDYayO6lcNrmzrp g lF8eT7SiQTKzyjdwLb79yD0aY cUeWeP6CAjpVng+RklTSCwgSk FNRVMgVzwvdGQ+QFEzLWB6wNb l KUplFDMzfR6dSOQyW9x5MlAmP wR1XJqzP1SwASFpgbuoVz25nL 2mTuVpFhR0RLkzG2XyrmM3RSP w kMYmBKvtJDI6P80by9F1OIWcB EGdXLT4eCH3mH8guHezvhiiiA YabDaqjqMmgXmpZJnvFEoiI11 6 TEKmgNfrKeElLxT1LhC4MsQ6N 4OmYlq4UBXiqLdgDJ3jlVZlPT zmGy9doJxhdCzyUZ4uDOSyslu w NAOxiW8rPBJegLBpdOutST2gP NKhusajh068NeStEJM3DEFrdQ AxD3OpdF7rVmJaWNGaMUBoU7Y l fLLiBZtuN246CAyqTrH7VQYrj wKbF5QtTZIzbGofErI2q5H6Az 44OCBZZWFyczwvdGQ+PHRkIHN 0 vQyiHCdbRWCmqD0hVEJcW5n9Z iVuUzN9MBoiT5QkVIQouuqbUi 18iS1vEuQgGbT6MUbaV7MtcdG 6 EMCydEPwODrxDZS8X23bu6Z0A OUgKURuSZU3iWJ8uS5mnPokwz ogbGVmdDsgdmVydGljYWwtYWx p F343PJRsgHxkSk5GILI9N2SxG xi1PJXlwSxdAL2orJZbJWvePu 3eiJrusOovFQ5aAMWypjnyTYJ k fR8nLCBicMOkwJbpQX2iWLFgt swws216TlRfYZT3XQWztCIzV4 EafZ9fSeUtBTTaRAJbA4FrnKQ t LYgmT512HQaaNyH6EEQxfdRsG 8HpRMGwqSkiBoU8u9R2Dm2DYY wvdGQ+EW34fz18F3XuZxtlUkw 0 LFEtKXW5oBE2eK3xWWBlCNjvf 9R7wXN5T8AithDwwn1dr6hnIU IiWOpyJ43ywMPgx9W2TOBqaXT 5 NQKbdMgjKhOumR31Ume+PGNvb Cirl6UfJmguh3lkd4irgLj4Kg FmFKWyiaYarDnqUYD2i4XnHu3 8 S63vGXanYDFeBSIsMRHsYLEud Jjofv3goK1yZr2+LZPhsFW9iA X8dB5mQkVrEbU7CZadP331EyX v lKCvLklur0yzf8zinRr0AhCcR AJxllEgfFdvNGF9o3GvCj76T3 LnuSroy6ZrXue1oe27pMFhe9U 5 zYS4J3LlXBOjkfiycBGovDtkK M6xINOlepmpHSWqbI9iXCAlK3 m7KuMrAwF9AVtdI1YtylK3QGM v wSHsWZZuuAWFkJ2jvepkj3fle vfeJmTjYGZcIEk5TGe9MBJshT yxSvYyWOG2YzG5SUZ2dRLkyD6 h gHbfzjmooD5bEgd+PWy5i3rfb RSmEI5hjYI9YQ22LZ97qPMmz6 B0oNI9Z9VySHMnfbvblnzieAM 6 KFUqWPRqdL47Je5wmFekGm1kJ YDzVMS8CZMotIElU0FpiB6iGa PqSZTaNWMrG4EkfPCbSQraA98 6 MCciZbQ6YZTwgpBzB9PbUXFdq EzrYyD6e9S8Jc3LDU90AK23VO 59iBShm7M6nDL9B2EwDGPgglh t cyulzBJ2BZCkJPHjrE25Ku0dk KvbYp7lWRKlAEF4QHArpQQpO1 RhfY1uBxUgCUUzQQOoD1PhiXX t ERjgD217HRtnPmU6ZXNrsvFdE 2NhQOPuyWeuXdZ8w5F2Dp0OTk 14FN92KZ76lKLsm5W3kPL1P3F h ASEghbhdmfihkPA2YHNcWOIcg L24Vb8rkRvbRq6zUJKcUCI7JF KdgYLpL5QceV3uNuVeXDNvYTK w A9JarHLdQAfxS996VEdbQaA3J EYrbrXiB2RxVLBwvRkdOkA9t3 D4Gi6JVIuecxx7C9WnPwkouNH + WJ54QBIdPW69eUYnbEDyq1aql Xi9LqCtVVFbBPZ2rJpdAZvio6 JgWBJwH75ynQEde5P7LCPtjDd h cHN (more content not included)... [facility] Wound Care Noteon 01-30-2025 Wound Care Note [id number]#[email or web address] FF [facility] Coding Summaryon 01-20-2025 Coding Summary HTMLBase 64 EaipxfpoNWx5uUb+PGhlYWQ+P B9PEEWrR75raFOdwL3fV8YAXW lOSywgQVBQTElOSyIgbmFtZT1 kaXNjZXJu IC8+ZT6pEGYxGryipAPjl7E1h QN0R81ioe0sRIcsvVM8PJKdDq Qszksta0blmZw2FOysPmokBnG t KEFaxZ32OTX4xJ53Ad06aMMcb HSaq7gxeFk4AuUbBGKoPPT4eS dmNItbg6DeXLBsK55uzJIdf3R 6 FHIxiJxylBWyGxEarLC3xX8oL Wdhlcmzl3ltefiuNkx2kg87qK Gsl4M1uYA6Y6ZrynB2YYRwzCA g DspnbZQYaJ0jaadoy3houqxxK uRnANYxNSy9HVa1CHBdiQmjSu ByRX77QIS1TCPovgIbE1CbFXX s bZaxZaD1s3U0Ge5YE2PVMbkwM 1VNTUFSWTwvdGQ+BZ77hp62F2 DnQtwqIfc0XVOaXMY2fWH0qG6 n WCBtUNqud4K7yJB0T5NecfBac u3ff5liUANjSJhlR92tkYIxa9 L1MJUspNV3WZWrtBkfXuVvlH9 3 Oyc+XINibIqiv5OwUzybt5owr 1nqfHy1ZwpkZATuqtAkzNqqPF S8r9KyIm0pIYVpqVP2jSL1lX7 i AzRwPwD7EWyiX800GuOvnVFhH emyO19lX9JycIF+YQWvCvu2SZ SbvOpkOW9hX6HlTNThondyaQL m tWiyTT4zFSWlnaiuFVJsmR5sG IDfP9y1NoPpPuW3DQtmE8YoTA VwkwvnGk30bY8cUiMuToW4WWe u W4HfsuA4FMQrhYIpCYpyRRA7D 68vx1V6RYKdXKJzERM3yVP5mG 1hbGlnbjogbGVmdDsgdmVydGl j YJpxEEmiF285QLUjlJouJsWsL GluZyBEYXRlOiAgMDgvMDgvMj AyNTwvdGQ+URLnSJL7fAbjEJR n rEDyTVkrMu3kkShbvHlhYP3mW SLzksqmNWApgL1zFUYedLEmnD qcVA4mTIPgylmii359FwLaZDK 0 OZLpzSGkM5QraO1nPnRtZYTtG DEjZ2ZxaVGzFFtrH596ETzpWm D0CIVrwsIeQ3QzLSPhaQqgEdR 0 l5Q0Ay3Sm5HkrnktU5UcqOTsR vMgFzwyWKg9G4XcAjzdfBD+PC 85CEAwXN45GKw2LBS3rYddZPq i KDJvX5WkuC0rMcMvRLNoPDAmI yc+PHRhYmxlIHdpZHRoPScxMD QvOsGklWmsXS6eFy9yPEItDNO v pNzfmGFxGoThj6avKMDnTMbtO B3yjOmhV9LlhDW9EYHyq6o2Ch 37G77lX5SkvFW+HQWizYN0qWK 0 sD8xOoKwJfH4BMmlM325YuBam JJvUqtfc4tsj0cnbQh7OmP9NE ZojvHrmDeqEZX6a2MrVp30N80 s IHdpZHRoPSIxNSUiIHZhbGlnb z6eqW2tFu6+XFDruAI4oYZ6kL 9uUyNjLvN5RZzoT198LiGpeAU v Yihnd7flr4cltPc2PwZfGNRvg iBpwNjmMHQ4y6HrMe46C7VynY rwr3AhAyn2rh19cUQvy2J5fMJ 9 F5LhIZCdagnzoLVhhJlvCP6cU KQirydgPPHujQ3fUGFpB2g1Ne TvLdK5LZzrY7NflkG2ZSBywJG g SKUoeNPOqF8tobkyw2olqrecN cXtYAAfHXp3HPf1PPRbmPqtEo RcNZN3BtK0VVD7xGPyuB8fxVk n qaafvF7mZgo+MKC3nDTghSAAW V4bSboptKR+YZDuMIV1lSooAU goIVApbT6dAACuN9s4KsReOgD 1 AYdqU5OiotW4IFNmzTQsMGPpv GYFsZ5epejfb8aqmltxSjRmWI QwQWw2QFj8SIAomDngToTzGVL 0 KiT8KFU6nROaiL4chEorepimk G9wOyc+IkayeQroPCW2MZu1I3 XsAra1AGSsmIsrLM5zwZYvQXw u Gl0dxYbiqZaxSQ1bDKVpqekbz 303OnUdr8bgVDColRIhXMleQB K6X48bj0C3WJOvIAGhETM0oGD 4 gW1scUgjbsndjBLkvRcsfhPre BerFAwlIRieF867BLQaxQxiIx PeNZs3I1YzQeo1BVYqvPfhEW9 n cZDiYXhrUa8dpYdsbOjuJD0yG RQikqpsf114GaXve8ldLNVdwA ZjBSxmSNU4J30og2Y2HGJxJEX w TLC3lWT1sZ1xqLuexeyghSYwf GtlpnYwuAxaAKmnUShzM232UN AyaOqfOlOizFx0Y8CkGus8GXD z pWjxGG3ydKOcJCuwLv4rtHnns IxhVD3vNHLzsawqx342DsMdg9 scOTVzeEWaJWgrPOM1N02qe4D 6 LIHhCRBuFGU5jLJ8aL9ggIshy jogbGVmdDsgdmVydGljYWwtYW nqA162PEUqfDgfLxIsvQlmugB g PBepDBf0S0DlXksdlMU+PC90Y IKiXF71eBXblKGws2bhxJp2Qd WvYBDmBIT3nWkwHYfcn2CoFJD t E46sjFHqo2A9XAPoePenvCIaS mSccQI7tM9aYGrwhdris0nnpl iqDcpeg0yniu93kT48Q94vLFo p PSMmYNNpJGRfSSDeqEzctq7xl G9wIi8+YFXqyJI0mXQ0wH1xCJ CkXzN5XGgmR595LsMepEHaFbp j f8wmw2rgdLq1HrL2PCBpwtQhw InaMCQ0q1MmIy10Z14bDLqtUZ DiHNYcENSlQQGvcWzyfx5gvV6 w Ii8+YFCphKJ1hLR8mL3yOrEnP hB8OOrkV596DzYgqFGkJesiI2 2qD1IrnAN+YJUxLzd9CLAhcCi s CL2oiORzWDwmJk0hVZI2KkJiZ qBwNLgwX5UqMMKodjaxmpbnqS J5JOJvLFVsbN79Mw3jyWzbGIP w hHRUbM6nswegv0jiqsadArLvB IWpANy3OCt5UPOajKxnXmAjVL M3GvJ5DHF6sUIhqL0kcEmwzvw g yG1dU4AbFCEkttxmNf90yL2dT qNiAhU6QYrxIdj+RklTSCwgSk FNRVMgVzwvdGQ+CGRiBMN8hWx l IAdqPGEstP1oJDTrI3c4QtUnS tS4CBkuU4VdRGLeyunzYd21eH 2fZySqQuY5VMlkV3QjzeI4LZL w oAXeYBqrRFA4G09kd9C3VCBuG WKvGDI9yHI2rN2zmCwvfalxaO GdlCbfuvSyuRwnSRkaNDquG69 6 TVAtsUlqKxLdAgP5JiP6QkU7F 7QgJcw7SVLvxCroCL5krAKfOL ivDg5aiPmbsJznQU6qRVNxjiq w QHRaqX4pRZTuyBJcrLcvPU9bB OAahygtp131KxRwIYQ2YTPvzG AsW5EudF2yAkNbLQVlLSSmQ5I l eLZbCWqbW182SRzeQyZ2EUWrs gNrA0ZkWGXfhExvIyC7a8O9Ge 44OCBZZWFyczwvdGQ+PHRkIHN 0 iHpnNLbyPMDzoU1iHECwE8n7G zWmScB7HVhfW4YhVQBvxoxcSs 51dE5bPtMmPvH5NDabA0OalqW 6 OINfcCWfJRziWSG1G51jg4O8R QWkQEQzKFK1yEX3gL7gwPnzzj ogbGVmdDsgdmVydGljYWwtYWx p I092SFEhwIwwRe8BLLL6Q4WoK vp4IFAkfWvqUH5cnGWsUAqkJj 2xfKsuiMohFJ8kYUWlubigYSV k mU6wWWWyeCUpxRjnNZ5aULNzq qugj668TsUnYQE7WXZqbKRlF6 KcwH8xMjXyYJYfTKKrW1BapKO t CAkxM797BNcmVdQ3SMIsthZzU 9PdWVTqzRveXbZ5c8F2Wr4FWE wvdGQ+VD57tb56L8IeOyvhOhj 0 QSUlYJB3uKG1bP0kLNVmJCadj 2X9uIT3V1BsylVenn4cs6qrGE QpMEnsV51xtUTfz0H9ZGIjyTC 5 HRHppEfsRmAnxP01Imh+PGNvb Wiln4BoIfwev7raa5grgRa6Is NvUJIazbWemFpvJUF9q8WjOc2 8 D71bMZgeXFKxLXTtLKHwSSJgm Kwace9rkZ2rVi9+BIWesBF3eL P4sR3sRaJqWqO6GXnlT471QwA v iDTcCgrxd3jdw8mczRf5QfXaA MCvnsKwfSqpJZJ9q1AdQz58C6 YhjCsgi2ZvRrr1us66hUSpr6A 5 pCU8I4LjWPJhxaxhgWOllOisW K9fQAMdfdepNFJojS1rCTIpS6 b5UoTzFkG9OThjJ1FjolW2HHE v hMNjDXIjyROZzC6qzbiqy5xpf jxgQbCnNGXgYIo7XNs4FRSdiQ fuDlAaKZH7EeY1IDL6pUEkuL7 h nXejgmkdkU7kRzg+IZf1d8atu HLcZH6ogAR5DE97CV39pTGgt4 Q0yKD2O8YkDUGhjvrgotempJC 6 DPAhYXQdsT38Ve3gsYedHa8jH OHyVUZ6MUAltIYrG1MexO8tKv FnJTKjDQQoE4DdtHFlHTbxI27 6 PLalTuD2EMOdidUaA0ZdIGEbj VybHiA2z6M7Nm5RZZ76JM61MW 34kJDaz7N0rHE2M9VdDRZwdmh t xlkqgLW9JLPqTEPhsS44Ro0dj BidKk1lOVJyKUV5XFNjlNIpC4 OdlA9kJrJvASErFJMpK2NvzNB t ZAdhJ095FVhsDqI9YWCbvcQkK 6ShKLIlmNyeSlV8g3N9Gg2ABn 15WJ68LN39sXLaw6D9qBB4N0A h IRZjheclcxiqbJI9IHFuOEPhi W20Al9ycGqlCd4nDLKyJGV5FW CymEOfN2ZgvP8vHtPbUHJaJIY w E0EsyPXkSDjfH778NOaiYtZ3O NOdbyEwF6LqFIPwuIqdGrD6a1 Y8Zn8WSZnsdfs7Y1LiMnofxCS + IH11LOJpOQ00jXCxpEXiu0tfz Ud7SfMkROBiLWS1aXugPJzyn7 MwVWOyW26guWOqi4E7PLAxfHi h cHN (more content not included)... [facility] Wound Care Noteon 01-20-2025 Wound Care Note [id number]#1.00OTGTIF F [facility] Wound Care Noteon 01-16-2025 Wound Care Note [id number]#1.00OTGTI FF [facility] Coding Summaryon 01-12-2025 Coding Summary HTMLBase 64 YwylhwszUBb9wNj+PGhlYWQ+P G7UMUDiS12zqBIsgL5pI4XKQS lOSywgQVBQTElOSyIgbmFtZT1 kaXNjZXJu IC8+LL3kCRHxXbzplFFbg1B8m FB4R15ryt1wZOzuxPO3JOZmOm Uyqlfyb6wgeAw6GAbxCnhmBpH t VZDrdE36SQP3hD17Wp30zYWix UQea7preEu3TvSzYSZuJIR0yV rrNZorp0HvQNFfX28qhBMqa1W 6 VVLflUkblFAgGsWtuOY5iR0hA Cjldnyzk1nlrylqKzv4uu22aO Fzt0B5gAZ7L9OogwQ7KWDehUL g BiuroGFMrL7xgpsbh7gdvkvhH pFoJNJrZGp1ZGn5GKOsdKjwHz TzEI94YOU6HFTpuyBaY1WzHOS s tIyzXiE8v6I0Sn2MC1XOBvdbL 1VNTUFSWTwvdGQ+FH57au54V8 KtJjtcJbk6FLFpNWE5kDZ1zK8 n DZDkBJyzm9C0aNE3T3PdhrFxq p4qj8rzEAEzADclN90poDYnj7 M2NYApgIS3GGYnfNbmYkArbT0 3 Oyc+XDIpiSmkn7DkSetap0vax 8zxpIb2TtcnMSZwpcDdaIraVR V3x2JdPz7fAHPheMM2dLP4yI0 i WfYuEfW7TDmhJ200FpFlzJDyO hbzT67rH0QaoVA+ZLBlXbv6EQ DkfRdeNS7yH4YpHCPvxmdgzGQ m iBvnRA9uPHImrsfiHMFuxW7pJ KArN3k9SgVyWgV0GLsdO4VaPG PfntpwPd57aB9dIfNkIdI6YPn u B3YjuyB7BKLazFXjIQfnOYK8O 30ua2H2LSSnCOOnOVW0sFW2vE 1hbGlnbjogbGVmdDsgdmVydGl j GOnbNWvfH783WOEptXirTbOhC GluZyBEYXRlOiAgMDcvMzEvMj AyNTwvdGQ+XMLaVQI7nLfdJQB n yTRzIWwwVu8hnTsaiEywHH6wT FVygekwZPCjgF7qBFWpyJNaeM hwAV1sYTDnsmvsi951KhQgPOH 0 RDWhzDXyI0NgdO0iNnCsJRWdA WZyH0GqwWUnGRoaM026MZmoUh M8NRMbgyQjB2RcEKIvsQakLnF 0 w4V0Ye7Ej1QqeblzU1DelBTkK fWpPkzxAOc4P7YsVbplfRK+PC 50VSJqSI27PKs0PAA4rIsmBXx i TRTiX5SvpZ1zSgJrJKKdTFUyY yc+PHRhYmxlIHdpZHRoPScxMD NnKgKjtNieZD5lHf2kLVPpXCP v dTzmnTMuIxBdc7agBXJkENgzP Z4deUohS8WeaEA3ULUqa0b1Oi 90H39eY2DbmZD+GUDkiCR9uXW 0 wT3uYfJzSsQ9YPcwQ421PqKvg CElFoyfl6dfy3cccGh5YeS9YN WcpuRwaUieVKK3d0RsKf81B41 s IHdpZHRoPSIxNSUiIHZhbGlnb c4xjP3bWc5+GTVdfNC9lFO4fX 4uIiJnJpT3AMqwT871LhJhwTS v Efezd1ogd3eqpCp8OpCcYAFpv eYxhOroQQQ7y4OwWx22E5FdpC nzf6ZiDkr2sa36kFRit6F6zRZ 9 U4OrEJXunpyixIYfkDzlHX4iO SUrgowjKRJrgL5rDBDbS4m4Hq PoIeB4PRvnP7RytvH3OFNjwHD g XCNmqSGVmU8gomkji8zircniX qAlEAFyAUa3CIl3FCCtsFivWt WuGAX7ZbQ1JGS7wUGntT3usSp n spjloL0fWvo+IPD7uEAkoFHCD W9pUxnxdIO+JMRtWIH9lLuhBZ xjHSBhwM1uQYFfD9z4ZgReNvV 1 INheN6TtdnS1TQAspJJdDKRik OXGuH3kufiyv1vfrrbgDnVlBG RqONi9YBb6FJLynGacZqQkASI 0 CgK8HAB7fWAzhI0vtVmtezsdk G9wOyc+HgqqvChaJBV8IBk0X3 PhGqg7JITzkNboID6psNQoDOm u Ak0jqSdtvNgzGT2yMOSnthoef 740YmRdm6ieHTLykCGgGBzzBD D8L30cr6M4WUMwQAXiXFI6sFY 4 dU4qyOdkwlmucVBzgEwoqhNer UrkLWqtEShdI555JKWlzDrnWl IaRDx6X1SxFvd7VXJqiGqmWE3 n gZYlZGtgNo1syZpsaVedJP3yF XOcvbqfg053WeMsr4azCFYajR WnNYrlWYT8K14fu6X6TKUzYJW w AKH0uRQ7oU1pzUgmtqrorXUen BrblwGawOwhXCeiCUszT715SZ AgdZatEqRlbBy7S8SvSud1YBG z cTylMI0uaUOgCHohWn8diSaif YkwER5zDEQatcxof889MrFwe3 hgVIZwsRKrPGmqULE6U22ua8J 6 OXAuLLNwQKC7eNK5tE0ubIlrt jogbGVmdDsgdmVydGljYWwtYW kuO396CCRomAelZnJmhLoimyE g XOhjHYf7P0XgRsbscOL+PC90Y ZGkMS36aHWohRHyc8oypUw6Zm YkOCEvTHR6fLurLEdnb5HiLHI t M31neEYdu5I3ZNJxyZrwaCUxC iHigJF0aH4uTAfgukzsn7didc tcXcvsi3qidw08mQ99N46bNAk p IDKgKVZuSMOmEKGhvEadjg7wk G9wIi8+KRYkaTC2mJH0kC6pVB LeZcH4AXefV283MnPedMZuRoo j f2uzh7jhnHz4PpQ5LWWvurWdm IciMXC6y9DdEy84T55pESheOJ TwMQDoZXFfHCTmoLzorm4tpQ2 w Ii8+FCXyfOE1cKR3zM1kJjMqO oM6QEcdB534IlGgtZLxBoozJ4 8mH2TgcAB+PSMnAzd0ZINskMm s YD5yrVFfLOcxQb6rZOY5KxAeG cTtNYncU3XmPENyynqqgrkslT I7CRFaLFHnuP71Bo9ypVdoXTL w kODQeQ3kkgoxa2armcymNtXpT IAdXAn3YQy2RUQiqVmdXtHyHX M3DkO4HXB9wUGezB1xcNplqdf g tF6cZ3NsXBXnzbihOv37xT0zU sBoNeJ6QSkwAmt+RklTSCwgSk FNRVMgVzwvdGQ+RNZdWHA0uWo l JBboQJLcyS8fKAPtE1q4RmPzF bG0MDinI1AuCIXamgbpVq21wU 4hPpGmJxW1ZXotZ0OajoS8JST w aFSqFIkrBCL4Q08uu3Q2YLDhV EYhSGX8nKW1nF3ryBmynardqB YdeBpxeiJnkBrwNOokMTmgL62 6 DSIxmWdtSuYmRsP6BaX0OjF9T 4ZyQib3HQWjjXhnFR2jbOAiUD xdYr5khYzntIvhLB3gSXNqcxp w SARuiN2rHEKkjXDsdEtpKR8iL ATzxwopb570GtRsGNN8ZAMmxX YfH7FqkT6yGaMrWFZzXASrX6J l yIBdLOpxQ941ASxzKzR6IPOpr fHmN2IwQXBltErjArV3v0U0Oy 44OCBZZWFyczwvdGQ+PHRkIHN 0 aJzwDHlhQAAlcF0mMKHiS7g4K wVoGeH2LSaaB9YoGINnagsyHg 72dJ7zWsJyRgJ8WUthG9CxpaU 6 QOCayVGxQQbnPIJ7U67kn6E6C WCjNPHjKUA5gTA2fF7vhXqlcr ogbGVmdDsgdmVydGljYWwtYWx p N843RFKjiDprXg6OTWU4U1ElM ll5MLNolXlvIM7wzUEbZVghLh 9mzFoigLuqJA6hZVLefntfCMM k nR6kTLMgnYShiRisTK1sWRTch mpug300RbJoNSZ1IFOnsWIpY7 IruE4yEfRqIIWxXYZnD0PqsIS t JPujB477NCpqYbG8FBTvwiEhP 1AeWRPjmUlwQdZ2r0C3Rn3LKY wvdGQ+HH26yn12F2XfYwxyCzx 0 ORCsBFU8cNC4yI5aPIFtAGigz 1K7cWG5C3OvvzQrst3mp4ofBH LpDCnyJ74fcGZxu0A4GWRkvKG 5 QDUqqAugHhFkwX37Rli+PGNvb Eokt5BiPeupd7gvw8ljaHc2Wf PoPRQqwrKodWtbCVZ5t4VcAd1 8 V64mJRiaHNByWBTcAVOeJILzy Qjzrj2zpI4nRr4+YGNnkTE0aP X5tE5sZiKsWkK8MMhdN914PwE v bYHlSvwum5dyp0akfPl1JtHgS JLwquJxiLibWWZ1k4UsEl69A4 DazEpsg4OoYui4qn92sFRbn6P 5 eNL2L9JfQBCpolgwmUOcqJidZ G9sPDCojsbvDEFzcK8hXHLvD9 o9EiGdBeD4EKwzA4FwdrH6JCO v jDCxVKVraOLXxV9hstdrn4xla lcoTgCtMJYiKYp0CSk9BLEpiE geVsJbFVS4AuF1YZR1uTAxgX7 h nQzskzzbbK2rXwq+GYf9t0cdb EOkIC0vfUK0TA35UP44lSCrs2 S7dCF8X2ZxPNKzfxvnovqpdCJ 6 OCLnYGJjlG53Rn4ozAxfYu6gW GZqSUT8HBSqtRFoL7RvzA9dBp HnTMUgJUIqK0JozDPwOHspS01 6 YDkiRiK2TTEkqkWcG7SxBMMrz SdvAiE9g3J0Ni2BVI56CO35YL 74sYSok0X0xAQ0W4TfJQSbrvy t nwyrkIM8HIQaLNZvdW68Ef7rv SgyJs6yXWLqEQZ7VJHlfRHwX4 VbcF3cFuLnENEgIIHyB5SzwIR t XTloF842BZuvZyO9ZONfezTpI 0TcIPZxsFakLdB2m4T1Xi3LMt 80RC33SL72xEPam4W4cON8Q8N h BJSgkoybwfvetXG1IEGxJPJzi K43Oh3amDdwNv4kZIMpEOD3YG CljURrP1PfeK5jKqLrPWDoCUY w S6RmyDNvNNzoZ574XGliCaC0F LZpwqZuC2YrDTLnjAfkOiQ6b4 O1Ur5QACebkum7T2YlWgisdRV + XX19FEGeHE40zTQdaUJoy0rqt Ny7QeGeLBCuJLT6gIilGCvvg0 MiUFZgP12rvQNsx4T9DGAknKh h cHN (more content not included)... Normal [facility] ALL BASIC METABOLIC PANELon 01-09-2025 Anion gap [Moles/Vol] 15 mmol/L [facility] Calcium [Mass/Vol] 8.9 mg/dL 8.5 - 10. 1 mg/dL [facility] Chloride [Moles/Vol] 103 mmol/L 98 - 10 7 mmol/L [facility] CO2 [Moles/Vol] 25.9 mmol/L 21.0 - 32.0 mmol/L [facility] Creatinine [Mass/Vol] 0.81 mg/dL 0.70 - 1.30 mg/dL [facility] GFR/1.73 sq M.predicted CKD-EPI (S/P/Bld) [Vol rate/Area] >60 >=60 mL/min/1.7 3m 2 [facility] Glucose [Mass/Vol] 99 mg/dL 74 - 106 mg/dL [facility] Potassium [Moles/Vol] 3.9 mmol/L 3.5 - 5.1 mmol/L [facility] Sodium [Moles/Vol] 140 mmol/L 136 - 145 mmol/L [facility] TBH EGFR-NON AF NIGERIAN >60 >=60 mL/min/1.7 3m 2 [facility] Urea nitrogen [Mass/Vol] 22 mg/dL High 7.0 - 18.0 mg/dL [facility] Urea nitrogen/Creatinine [Mass ratio] 27.2 mg/mg [facility] ALL MAGNESIUMon 01-09-2025 Magnesium [Mass/Vol] 1.4 mg/dL Low 1.8 - 2 .4 mg/dL [facility] No Panel Informationon 01-09 Interpretation and review of laboratory results Abnormal [facility] Wound Care Noteon 01-09-2025 Wound Care Note [id number]#[email or web address] F [facility] Coding Summaryon 01-05-2025 Coding Summary HTMLBase 64 MnngdkilLKx4oDk+PGhlYWQ+P N1SDKCqS56caUFlvJ0pS3KBIU lOSywgQVBQTElOSyIgbmFtZT1 kaXNjZXJu IC8+YF5rGYRlCddbgJChd1T3r FL2C47imu1eENnwmKB0ATMpCw Xmpwjkw7sbwKj6FVfqAoryRuY t YOWvxN00PBT7bX55Wo91bQUaa YEcu2fhnMp1VsCvTIYuVEX9hY shYWkmf6FyECZfH23qqKIue5E 6 BINkhHehhCQgThTzdVI4kZ4zV Qkdwbyiy8viepycLdb2yq63yA Ajc4F0nLY8C1NbtrZ5GHTlbGS g PcupvGQWkU3ipktjb7rgbbzrT zPuXHEuAYi1WCt2YOQaiKheUc ZxYH76VWF7VPEnmzCyB4EbFXT s sWeqGiN2m9C2Fl7WH6TJGlxuA 1VNTUFSWTwvdGQ+BB22jk38B6 KcIowlHao3INMtKLU8rPF4nC1 n MLIrSKjjd3N1dZV6H8KqgyVes n7kv4tpXNCuQPudX56xkSCay7 M3RUJrwFP0PWYquWpvCaCiuQ0 3 Oyc+KTWjaYkol8OzUzwwk9dke 4sbwPu1DpnmISEbbcLtwEerSQ C5c8RtWd0bUDZizDT7zEA7iX3 i ZySzCbS5XXtoZ579VzFpeRSjU wubT79gC8GiqKG+PUKqLrb3ZO YunEbwQM8gU7DqZDDsrcpqhIE m jAsjBU6pEQUhyhszZUExsW7jZ NCxS9z6CuMyHsP1QGxiP9HzPT UfeeflCt51nJ4tDdChZgG6LOg u N9IhiyN1QUHjnCYzTKbcXPN2V 21bs0S6FDAuBFMrBLO4ePU0rX 1hbGlnbjogbGVmdDsgdmVydGl j RFpyRErmE339MKOyrSjyKfVaV GluZyBEYXRlOiAgMDcvMjQvMj AyNTwvdGQ+YFKkUIH0fBitIKQ n jEAtHOqiGr4bpLzwaUxtKB3kF KEbmfbwMSNteQ7pOJMnwWTllV gmZA4dXKIoqdmbr026XgNjUQP 0 DKJxsUHrJ2HmtL4yWjDnYFRpR KAcU0RuzCQwEDcmN506OKnoZf A5WZPjtdJpB7BaBELkaMrmNdN 0 q9V4Jc1Tj3BzpihcP9LrqKUvE wWsXkszGLa4E6AaFcbuhGC+PC 01GWCmAW70ZQk6XGM0yGibVCh i ZHFeS8LepU9iJaOwBNDdZLGkO yc+PHRhYmxlIHdpZHRoPScxMD UkIuZzeRglTW8wIn7pAAQaSJL v kGlpkMBzRvOyr0ojJRQjRKkgA W9vxJobE2VdxYA9WUZgb1i0Du 03U84wM9UtuLS+TWLloGY9vNB 0 xQ6tJmFkJfW7HHmyI380XiAqu MGgFdoyw4bxd1cgmXz4UaB1LR XhsuZceKulTRU4b6TgRs67N81 s IHdpZHRoPSIxNSUiIHZhbGlnb q3alQ7fVp4+YLEcjOM4rSL6zC 8xRiNuLxM4IWdqA352McPdjRZ v Xmngi3uuf9iwpBg1ZkDeEGUep fYjlOoqOFX0p3HoUu01T8EnmW kdp1TzJyc2lj30nNYax9J0oDD 9 G1MmXDNvjnwcuREmwNyoXY2yM WHuyexpMOJixG3fBRTiQ6r7Eg DjNtU5TYokP0NrbfL5JIYyjWC g LFIqkKXDaW8hdejna4esfkwiH uFeSPQkRNj3LNp1MKMsdOluPz BqMUA3VwW2QDJ6kWKaqA7yiMr n ejdynB4aCxf+QHR3iHJqrBHNB U8bFoywfYD+QRZpYEK0aTiaPX vdTVRlkO0rKUMxI6q9YvOrTpO 1 SNsoY1KqlrV2LWClfPXmJATri NKDtZ4rungap0nzjhsbApNmIZ PfUWs4UAa6PXTqzCezPrFwNEQ 0 UxK4PNB2lRXsbY5rkUzdqhstg G9wOyc+XjfuqNowGAI5LIo1D6 ZnNie5MDSlgMvhJH1vpBScORt u Ze3wlAzhvGdvWR7dGILmtyqmz 098YaXhy3clVPZvgFLkVNlqTN B5U44th7S1ZNYwJZEbXIT1pCX 4 fI4cnEgxxbzwpZMtmQfhjxDwz BhlMCtnTAmiC510LJPwxUgfNl ScLHp5X1PaKzq4RNPevGujRM6 n mRSyDNohKa4dfEkkgKkbMX7yG CCqwxceq392ThPgi8ztSXYjdH TcCSfjUWV5W42qb0S7XUIbZEO w QKR5bST5tX5cdDabxdxhkOFcm AudceZamNpoQSmsSOafG910NF EjkFutUfUnbPd4A5KgVff2HRT z wXmtOW3uoHFrIHwjAv2aeBmyj HshIS5lLNDjpfbuk497XiOoj6 enPPPnoXAgFBoqBVV8R42uf2I 6 SMUeOGIvIQV2eGB3kG9jcKwpd jogbGVmdDsgdmVydGljYWwtYW bxA127UPTsuYddXnTloTzodeC g DEviLMb8W2GkPvnuvCU+PC90Y RZfSI18xBGvvLYlc7qnjBe9Gm MmHOVfBCG0bGlcPDkkr4JfBDU t V64ecLOro5L6IORquGtrzHVgS gYciAD1eD4vLHozhlnyh9xbyc tvRqpmz1shai38rW32A84wGCv p FMDlVNFzGFDlFNBawYmfal9ze G9wIi8+YVDhyXB3zTN2lG4gJJ WgHxS4KRfjK946YpUgoWGtEkg j u1mnx3ggtHr3SkQ1PXVbhrMof MksDHY5w7CaBc17Q13dQWcpKK ScLTNvVPLhREWvjPdkol1udH5 w Ii8+ZSBmhZY3kBD0yF1aCkKlQ wB6CWejY264QhHnzJKpQzugJ0 3xP5PviFR+ZFHrHit9YOMltYk s LG3zvEOeGPbsCr8vMJY2RxQpH hLpGOdwN0CdILBczxhxxeouoJ A0AGNiKXMfwF96Ju3tiGnfZHC w vRDRpU5ikmpjl2osjgnkEkEqI SCmEVi1DDa4VQVamVuvVxMsAC D5GfK1ADE4eRWewH1ehToahux g dU8eX3KkAQSuvcwqHc70fW6hB gLpPtE6GMqrQgj+RklTSCwgSk FNRVMgVzwvdGQ+ESXsOXE4iVs l GHzpDBAreH3pJXSaU2l8UnVuF qP5BIzqJ4YePWAmlwncCn00jG 4yIiWuTpV1NPykL2EpvuZ8EFY w gPQzMMroWVP7U60ew3J9LOHxM QVxFPW5pBQ3pJ1acNxfixbgfF UlbWwymaPalEqeKVajIYpkS19 6 OWYhgZtkAyMyXbN7CwR5PgE3T 5BsJxk9RPOflSfiRN0abNJxYF yfNl5moGibxWnoSR6mCHJiwnp w ACVajL5lEICwxRKbvPlpRK8pD GLhhpacb796BpVgSOE2MEZfoP VoE0ThaA6gDbKuJRUpCTNpA5Q l rIVeBGbfB444GRerDaA8RRKqd tCrT2ClERBklPvlKhP8e1J4Iy 44OCBZZWFyczwvdGQ+PHRkIHN 0 xIqyOCxdOFWllT3qRENzA1f3Z cNzRvV2WIfuR5QpSOSxyrqcYp 40dQ3aJnLiRhL8YWskK9DtdjJ 6 TNTbgCXrNGdkCLL0N49qi7Q6X NMzYXKuGXH1dHQ7iR0zyOtllc ogbGVmdDsgdmVydGljYWwtYWx p B904RVHooJkqSl0UXUY6X0DiB wu7UTJgfNvaVH5moVVaFIkpQd 9jqMpaeZdqUI8cMJAkyoorTGP k lT6uJGQqeWTakQolQT9jGUOqu bnng775DhOxLXE6IGSipNDdI0 PvqM8iBrEuRKIhJCBxP7RbhWR t JVwaP437LFgxYxU6KLOqxbAtC 3JqSCJgpBgzDoV4g7V9Gs9WQZ wvdGQ+BV22jj97Q1FcKggeOmg 0 HQZgVBN7aOL9iT4kWHTkAXndu 6F7bHY0P5TmxpPvvx8cd6kuCI RaMVhhN24zsWZgx9A8VGGhxSD 5 LLJoyQpiZrZybT60Sub+PGNvb Jail0XwLpgsd7jjv2qtxQv9Db NvTWDupjMlpWzzMRB7r7IoPu6 8 J32xSJcqLHKkXPVoGBGlJETyn Igjek9ncV2nUw0+GALckFO1yH Q0wQ9gAxTqMcN8HEbgY860VfD v oLEkIhyla8qwv5ftwKh6BrXfP EUuzqZdzXagLFF2v8JkUv95F3 LrrBxwg2WaDjh9tz25rOVks6H 5 oNL5F1VdZBOtddmxaUKakDoiI W7kJPPpxdxmATWxbX8cDYNyM9 y9ZaUjDtY2PSxcD7CckuW7ZXQ v hEQyHRPiiMTNfS3arjlgz1ivo zthAyBmACYpGBc2LWj3WRMtwL doVdUxGVH3JhS9JKZ6mDPimG3 h yXuwzlisgA0hMfl+XRl3r6xmn RWiBU1zxAF3HB92HL00wQArh0 S7wYV9N5NaTWJkanbwnopnsTS 6 GTIvJFClxU16Je7biDtkMg4vX CEtFYR0IHBfoANrI5PufS7tNo AhOCCfXFMnC5HttYJsWIjdP26 6 PHtnExJ9JFCvhlWyW8IwDHOoj DalGoR0h9X7Em6IFT36IQ79CO 99oLMha5M6nYH1O8XxDIUpbfg t ilzofBK0EBZsIZZsqI53Js0qi ZqxLs1gOJYpILI3HOVriSLiM1 ZhdY1vVfZfMVKdJOBcD2SwrXK t TAdvC176QUkzLfT3JQGqypIeK 1XeBNIhuGlrVqZ5l3R3Lv2RDn 64II46MV30mYJzq8C7cRR9T5D h CYPtqpcrkzphhHM7PGTfSWDcz G48Cb0weVjkNm6jZPYsKKD4IH KwrEHcX6IhuG7yQoSkUCXcZWZ w M8EvzZQhMJkdI075MOuzYeB2O XHmuvPuY8ZiJTTxzXxkVfW1u9 U4Gw4CBUhdqsl7O1FtYmnqvCR + TC93BVVkMJ56eHEyeIPwi9npf Ct4CvVaBOGnTUA3dItySGtcl9 OxQDAhW83dlMRrh0P0LULdqTg h cHN (more content not included)... [facility] Coding Summary HTMLBase 64 OqbbjawsKWc1oNe+PGhlYWQ+P M2GCIKvA16wwPLruO0eU8POSO lOSywgQVBQTElOSyIgbmFtZT1 kaXNjZXJu IC8+DT0hUTCxCzkokWPcc8N3g EM8E11ofc9yIDfcrUF9VZVfKh Zcyxucr4kpsHr0IMpvHwfpBfU t YFQqqE16CNP5uT57Xn21yWRtu BVmy5xsbNm9YfRyQPXaRBT4mV zhRKvqq1FnCXIjI95zfTSzr2H 6 XYFonPsacTPcGiKozVK0eS6aS Hmzczxoc4suvbrpOex6pd31vD Omt0F9dHY2B2ZdozT3WYTidOP g KyknjZSFbN8smewxd7jwiuarM bArEFXdOZl4HMg0VNUwfDhwNn NsDO38ZWQ5AQKqueDgH4IkUQT s fDmcIjT7r9H6Kz8IQ4RIPlbzP 1VNTUFSWTwvdGQ+SV15pw39J7 KuZrgxXlp7HUKzQXH5dQQ8cC7 n MJQkTOqjg4A6xDC8C0XlqcGxk t0ct2guEFSaMLwfP06fdKXlp6 P1NLKuvYH8YSWnzCbnOnJumW3 3 Oyc+AQUbyTjas0OiGvagy7jfq 7eqzHg0OtkoIENkxdAhkBgfPB M7k7DtVv1gKGPoeBM0aZM1qX1 i IkJjNxF4DMqqV071MvAdkUVpF kzhZ48xN7PseLY+HAKdFhe4JS YaoLmjQM2gG6HwSZFhfkpmxPM m tGeePH7rRPEcplwlPSFjyI0sO BUxD5t8ZaRfNiS6TKzvC7TwZN CgssrsGr47vW0yXbMsLpX8CUj u P0ZcamK4XWEtzANlTKckRCQ5U 63sy0G8CDNqXVFnJXR0mYQ0fH 1hbGlnbjogbGVmdDsgdmVydGl j TWqqIOezE243PPPrtZuwHaCsT GluZyBEYXRlOiAgMDcvMjQvMj AyNTwvdGQ+ICObQTX8iBrnMIO n wVHuQFzfBq2vlMdgaWjuVA3mX LDmiokdLUYfuL7eQEPwjIBlmO iwRQ4nCUZrmwoim012ZzYjIOJ 0 VKDzmKHoG1IudD4vChLnGVPuL ZBmP8KvgLYmHUmcD194BWsoXj S3TWBkuiTzJ0ImGOXimLhvYgD 0 y6E5Ab5Yv6HtruxgU0WqrYLrA fKeUndpHWp1A9YwMtjqjLK+PC 50GKLtID34HYi1TMH7jYqjCOu i OPPxT0MvyS5yDxEeOLRtNTXtF yc+PHRhYmxlIHdpZHRoPScxMD CeZwVugJlbOO2kFb9uQWYuVCP v uDzxdBKxRzCvj7xfZZJnGCiqO Q8pjZvkK1GugZV3TLCbp2d4Cd 22Q24yS0OylNS+IROnpJY4vNO 0 xX0zKpOeRoU5PPqeL065YoUef XTgGahiw3cvd6qkcAk3LvT0YO CrmqZteNkbBID5m5UjZh16Y50 s IHdpZHRoPSIxNSUiIHZhbGlnb r5upZ3bTe1+UKQgoDB1xJF4tW 3cVrQzWmQ3ANesH001GaFmnOW v Ncxwr6bro3nouSi8LfAnUPQgg fFrcHshGZC2h1IdIx12V0EzsB zpd0FgLyy7iv28lZRmt7U2oIB 9 B7XfNJEjxgsndSDckEtqHY0cA OBtnzdsJZYysF5cSUHyM1f5Xh MxWmS3GCgbG4MaeoH3NATcwLW g KOQhkHVAbV8jyffbe5fjarocN hHzOBLfHPv5WUv9AVWhaLgrUf VeTMR2LdC3MWH3hOEqlT7lvIg n xeoavD4bHoh+PML8kTRtyKUCF Z4uVoohjNH+ZVNpAXK4iRevFY ijVSTsbO7jRJJaF4n1VtEbMmD 1 LRttH5ZjzcE7ZRFwtUQlCAFlt FKCbD8aqcauy3nwbbjfWtCaMW WzNTp7AHj1TIRccHcwEnPqMKE 0 HjB3SDC5zGSdiH3bsXdrmtdpr G9wOyc+LndbgVxpVIG2PFs5M9 TqXsw0YZSvvKfyIH7ykZQmTLz u Ep9lrOtiaZqaQH2eFMAmqpbhf 532YvAar2jmXKVsuQIsVRdpEA R9D29cr5U0PGVkETQnISJ3sDA 4 qC7jnMxeagcbjCVreJkpkwDou YrfUXftNIiiU983XUIlmPifOq BvQOs5S5GaXvv5MMZrsYxgOB2 n hHVhLMhjMq6ruPzumXjaQX0wO UXdsyqlg757NoAqq7muJCPriR QhYWkaHFD0V76gb4D6CFCsJOU w XMK0mZG5tF3lmKdnrwygcWGxo MpbqwQhsRqhCQcrQJbiK380BN VgsBflZvHxeFx9L6UaUwh0DUT z vYzoZS0fwGUkUBmiHe5gxTuws WgeYM8yBZJxabbbu360VvFop8 kjRMKozQKyCBrzKSH0U68hl9Q 6 REKwDDEeRMF4gJM6sH2nxPumz jogbGVmdDsgdmVydGljYWwtYW szM155KPZqxVqjFoZktRuqqnQ g GUmhLWw8U9RdQcapoPG+PC90Y VGxMB58xKUceOKib3uytIq4Pq KoAFNxRMY4eEfwNVtvm2OfLDN t L33ugONnf2W0NBWfqUfwgCHeG pZzyMS3dE8yKYjnoltic7fixc elLggch4pkpn04pX47S44vFQb p JXDkQHLsRTWgEFEacFbaxp3va G9wIi8+EMEhiXL8eJL0fU1sRR UaRyX7AHuwM808HyVvjDMqUwn j r8tcx2sesMb0YcP6GBRfzqMfj DdcGFA4x5JkFq62J19uUNyiDT TpBEYhSYQnPCIuoBjlhz7waH9 w Ii8+TBYinLC5hPN1uQ9dYoGuP qZ9RZuqZ668PeKpdTZnQeqzI2 3fV4PydPM+NPIaQnx4SXHtxEw s IZ1psEGgCTofAf3nZTL1NxDnI wWaYStdE2CdEHTmqfibemgekS H9DHZdKPAwkX82Kl4wrTwjHDO w bHIFeW0kqzdjr4pbbsmpTcFpN GIhXNn4HSb3NEHpaEdxTgLiYC H7LvZ4OBK5yEVomL1isCutdba g tR5rL8YyXLMgcjnrUb69kU8fG vBrJkO4BUunNdt+RklTSCwgSk FNRVMgVzwvdGQ+NERdGZR2yQf l MNkhEFBtkM6nIWFeI5k0DiHfW oO3SPacR2PmSMJlgehdRt72aF 7sJiIuEcY5XZzoG1SongK9PVV w mVLwRHpeYZP5U00ua1L0CTSfD DPyZEA4uUE5kU3fuXmurjdapC ZglTlvfiDxyXtcKVavXOjsG00 6 MCJgyFfyIyEtExQ1VpK5FgT5A 7HqUgr2WPBwhMssQM3wgATvQA dkKf6tsTfujSqhCI6sLPRqcmk w QJDlwK6cMNTurZIjsVuwSA6tN BAyqbjpk611ZpVoIBG0OGYnhG GjT8FelW6sNjZnMXMwOOVrF2J l iMLlUTjbH960SMbyOmF9JXXxz qLkF0VbCNWatJmnVmE2o1F0Bo 44OCBZZWFyczwvdGQ+PHRkIHN 0 zJwcCNoqLDZhrW2zFAFmV2e5K aSbYvI7AYgpZ4LkUYFnctpyFs 69xC3aPdQiIxQ7JDfcY4GyvzH 6 IXQdxGAcFGafASS9H99tb8J4V XDhFGFhAGE4xUT9sY4uzMvwbn ogbGVmdDsgdmVydGljYWwtYWx p E920KUMsrPtvDx8GVNX8I4EmR oi9NBBwdFiiKF4iqYFjRWqrUb 3qrMykyKphIE5zPEOxdofkEIK k yB7dLGZlcKTvzHglYB4sTLVya zyrt359SlAbCOF5OGBdaWAaQ9 KgfI6sDnGdBZGbJUNzN7AirLX t YFldH492OShpHzY3HNTivzSnQ 0MpTBOfeFjxSmS1u8D0Lw5CTY wvdGQ+ZO16qd98J7PuKwheAxk 0 KYYfMSB3wQT9qC8qXRZfFIcrh 2P6iVT0D0OiujKmyz9cc7mwMP ExRRzvX76sdTOtp2V1GRDrbZV 5 NCRdtJoaDtBigK87Fti+PGNvb Carw2YwZyzbu4wix6hrjKi7Ha KbUNOdpgSomNfmEQE2u6FwEp2 8 W16eKKdxQBBfIEBxAJEjNPMrq Toeqo6xhF6xPw0+AVIleTF0oK W2fO1wQzHoHeU5LEwwD304JoU v rNDpFlneg0ctk2tufQj3TiZaN HKyxvOnoFngJWY3f9KxWy13S3 BijNrdd0VhJsw6je98iTYfs1Y 5 sFL8G5HaCZYoowbjlVRbzMzkW Q9eCYXxkecgNYJluQ3yFHTrU0 r1AsUqNaN2KKjxT2FvbpP9SYQ v rCSnERWexINYsV1qunxht8pmh shcBcGxWRKxTTc0JVe9GQXglQ pfNbVeTDU4QpJ5XFQ5aCMiaR1 h qXrkdpmzwB4eWhs+WVz5g9sfs FZgRZ1gcZQ8ZR56MI53yVZtx7 V1oXK4B9AmQSTqlpouyypiqTW 6 OFIxKWTneE45Xu7zdSbhHj0dJ CCiLZI2VQLmdGKeY7BkcJ4vTo GwHHVnGYYhG0CnrKFvFYmjV51 6 SOcoTeW0EJThpnBrI1WzCMDyc XjaXvN3i7E5Me0GLS09KN63PB 21uSXqr9C6jLE8B9JxUZCrtqp t cnqxtTP2RULnVXUdjX66Qv1cz PmfZa2vJJNdPIR7GRRljKKpS7 TtcU5iBnMjQSWoNLWuP6EyeLA t KOcbP312EMtrJyJ9HBAjimDxI 9IlFKAhqEmgCfI1q8J3Bo0CQr 91GK97WT36nCTxd3Y8bHV7Z9B h DCHtfxbbywwpmDR6NLOdANJvv R80Ds3bmOuiGg5uKPGzJTD4PE SjuFFjH9GulM9uDbXkVPFbCNE w V0QcbNAeKDkbF000TYpdDrO2L LXoaiDoE1LdACJriYhiRkM3y9 U4Zk5XNGdrfmq4M9WwXwpxaFZ + GW78WCJtTH71tMSapBEgs9ydn Ae9ZiDnODQcSDJ8hHfxFQtsb7 HfEOChQ45wcOGya4K0JKJhjMj h cHN (more content not included)... [facility] Wound Care Noteon 12-30-2024 Wound Care Note [id number]#1.00OTGTIF F [facility] Wound Care Noteon 12-26-2024 Wound Care Note [id number]#1.00OTGTI FF [facility] Coding Summaryon 12-22-2024 Coding Summary HTMLBase 64 HjmxmfguAPb2mDf+PGhlYWQ+P Z3QMHTkQ97alNFfpF8uP0ROWN lOSywgQVBQTElOSyIgbmFtZT1 kaXNjZXJu IC8+QQ7oBYSvAhnxfEMpo0Z5f GF2H24ged5lKRsuvKK2ZYEdIw Soyfmsr2vefAn1BXykQepmJrR t MXVuwQ79MBR4aP87Yu08sVHxh ZAbj3clbRz3AqCrLGHdCYQ6pE ouYGtrg1FeVPMaA82kxGLuv7V 6 TZZgpZqbgRCjEgFlsYT5uT5zM Qsfqfjtq0sjsoskVkw3fx10qW Njk0S0wHE9U6PsfwF2CJBvhLP g HovunTIRvD3ejitmf2pqhnzrS aKiXNHeHTb2PBk8TWHpaZmaZm TnPJ62OYJ2TRQxplDlB4VaAEM s hFujYcM7z1S0Ia8QY7MSSresB 1VNTUFSWTwvdGQ+AH79yn68F9 DpSkkjWzk7BQCyFMG6bUM8mB2 n ESAgRZjnf8U2aYR6I2MvtgKjf e4ch5gqWTIgSXyrD85ixEZdd9 D3RGUrpDO2HMAymGjwLaUkwR6 3 Oyc+QTAlsZfrd1YqNkigf6ips 9wpeSq8DwsoUFRrytKusKgoSU Y1x4EpLe4uAMKerHA4lYR7pI3 i PmWbGbD3RUpyF727MzGzxXWsV bcmY91mH3SlwSY+RQNyXkc3KK GwwXllVD4wP2JqZHGzcpwolWP m lZahER1tHSPgpyztTTJyeU2gY CUnC9s7EjHiFlE4RJdgY1CyNJ HinhgwUo81nE5yZdTgSlQ7ZDq u A8LthhJ7AUDmtMCuZThaFFL7V 68ps5K4RYZeBLDuFMT4wKT4xT 1hbGlnbjogbGVmdDsgdmVydGl j TBzrZOxeX170UQIjeBxfIfRrG GluZyBEYXRlOiAgMDcvMTAvMj AyNTwvdGQ+SEKbDKI1dGfrMDT n oFQrEQcdFx0xfFyeeLmwUD9qF GHuxsjrSUBhvW0dFUKsdVVlzW aqCR5zTLQwogeqc520OqWzUTC 0 XHNmzXRuI7HteV9rTkGiVIUrS VJyG9GjgBDdRCefZ717VGxoUy F7SKMtooZvV7HpSOSxoMjhMwV 0 f3H6Xe1Wc5JexthgJ0FrtKTsD fWvNqrfAJq9I9EsExhbjFO+PC 85PPJkKR86WVo5LYD1fYuvRLt i RYAcT8SwtV0sSwRmJGRuDOBfY yc+PHRhYmxlIHdpZHRoPScxMD XiXdKlbVriJO1xBo8aVPJfOCV v tOxbeZQgOaTsk3mfYHWgNZifM M7hpHfsO6ZamDU2GXTad2x8Zt 82T37pF7HpyPZ+EZBvcHN9gIX 0 dM3xSrZiKqO8SXaiF013UwEqp YPhOmflr6dwk9akbFz4IuZ7XK NgbdOheObyQJB7k7VfJh69Z70 s IHdpZHRoPSIxNSUiIHZhbGlnb k0zoP2bKo7+EOOpmSY0mRH6sV 3fAiMsRpN7MTbmH352YmOchKD v Rhzzl1hfl7lboAg6OpQwONJju gWghYsmYVW8v1DmAk28R3ZreW jzn1YgDvs6ap46pSJpq3A0oBM 9 J9TwAILswergyTVxnKopDM1pU PBokldbLEHxrZ1nXFMjD8q4Fj OhZoV6XVthO3QbefK8RKNyuQZ g KNXetZPMkC0zwhrrx5mgonawD bKzUENsTUe0ALb6XMNeyFrsWk FfQRP3UvV4IOE2nPYdoX2hkCc n ckuifV6xKvb+VUQ5mADmfLVQB G3iZmavyIX+UYRjIUT5gGpfQX ngMCZjlW4dMJRcV7n2EfDaIpF 1 FUviD1BmslD7VZKtePVqTQDyf IVYiF4lqyoum8ebwtkaGmTuLQ JkEPb2BTv2GPYbcCjiBmLjFZB 0 CoS6UGT6tGEfnQ8yzBkrbrdty G9wOyc+RtgvqKjiJZY3MNp4X6 QjLie1UPIgjQbhZT7zoQZuNFm u Dk3ddYjpdNugON6mRGOtdvxvk 854UaEif7wfMJJabSNwQZtkSE T6K23dy2F8ZMPkIQUaDYY2lET 4 yM2rxUrrlclguYKfnOhmhgBgw DzvGAyaRXgsB555RNZohCzjAj QrACu6Y7IhIot5GYKntUerHA2 n uVFkIIopFr5fcXusiPjtGU4nD ANicuryu465SmShk8kkTJQxjF LhZNkkYSM8P68ur8D8NIXcAPU w ABE1pIP1gI2ijFoyqartcDBjz LzhjcGmhGneLWzzRYeoU162ZN OgaUviEiJncEm3U0IzRcs8SJD z yBbaHG0liLUvUHjeGa8ndTrjw VrfDV1mVXWojzcfl986YlVjh9 imEJCdbITeWRvxCIY9U00wp5M 6 VHNiQVZvAFT4iVZ6wR3dmRrcl jogbGVmdDsgdmVydGljYWwtYW vuX640RQWrkJzaTfLpnWkgboJ g OLpjVVe4F5CxPzpbvKT+PC90Y HQlHN24iAWcjOHgu5ombXz8Yg OgQRDaEFY8kWnzYLohw2JkSJX t D79qpDWwq9Z4VSKloSlaiYSrZ vKmsDX6rR3cEUrihyfyp1acbw gfUvlqm7zqlb85xM78F04lGJb p WPHoBCMqVCSoKKIclDpcun1rs G9wIi8+KNGgtOU9jGU0pP4fQI CoVwV5QXeaH471KjYunSAeJuv j a7ehn3yybPs8SqY0CXGuxjSoe RixCBW4b7MpWl94C13yMHeqFY BvRSSeGLFvDLPhdJvrbp1xaJ7 w Ii8+PJRauUL7oRF8hE3nJrPbI fO7YGtvN288GcFrjBJsJktoO2 0rZ4RhnLI+CDMpElo1IQUacBk s XC0vfXDiIQcaSo3jKZK5McByK hQkKQemL2EaLVOpxptsroeoqC E3OQYoWNCapM12Jc8gpYfgZFI w pJHYyC9tgeyea5ulbkgqEuZtQ ZVpQEi3XRw5FLKmuKnwCiTlQS F6ZmU9HHN1uZRdgV2opRcqsvb g uB1gX0GsAJKbschgMj72dS5fR oFjLbI8HPytLxf+RklTSCwgSk FNRVMgVzwvdGQ+RHJqMZG2vUq l NUumPAIbdR2eSHSqC9r2LzWjQ lW2DBzpV2YqTCFemzcvVd35hK 5uTaHjMkB0JUasQ9SxjfR8SFH w qIAkZRkfVGO6H00yk7M1XESjD FBkQGQ1wXO6yN4opMugturehN AmbIatkkHypHpbHWpkADogP88 6 UKAgbHalEsHiZwV3ElM9JbR9X 5GcFpn6PJOvfVgcQB7cdLLxTM qkQs2byUefuPczFP2uMLQcafn w YMZkvV5pLNGadCVewIzaRV0jW UAelfyuz402PsYpRYL4GPJndY FmR6XkeD1pJuQmFGBcARJbP2I l pEWoTLzmZ089HLhtHcM5MIPqk rJhZ2SuUVXnhCvjLhY6g4W3Hl 44OCBZZWFyczwvdGQ+PHRkIHN 0 uMvqOHfgXJEgbC7lUEJgQ5l2E iSjZuB1NWosT8YaUTHaovnfRt 64mI2dSoCqCwP7OTwfD7GqhrI 6 KWYusFEuTShmBMA0Y83ho7H2B ZTkYJHuIXP4fNN7aK2coUvirb ogbGVmdDsgdmVydGljYWwtYWx p A978IQPylGuuYy7DYAS4U9BxD gw7XKAmmCqqGO2dfNJtGIscDz 1muHgclUbhST2hGQKpzbovTOH k uE1qQPNssMLaqQjlKB9bVXMuq nhpr091TnUvLND7AWWbhBOfT3 CbuY5uKcGpPTCzYAZkE8WqfHN t ZRlyA187DRpyBiM7VLTogaLrO 8LuGFLdxSohTaH7v5L9Dv7EOL wvdGQ+UA67qx49N4OzMddxEir 0 RGJhGTS5kKV2mO1cNGIxXNins 6A4bRP4P3ClttIybk2mw1eqDV GdSDuaA95hlJGeq7C5YXByvBJ 5 HXMkpUtcNkOolT88Azi+PGNvb Qmyt9WrJtfwh8puj2gnjOx6Wa DuKMDxxqZjnMjnFVJ6s5KaPg7 8 F84iNJgwGHQmUMMkGTAzICBct Nkbha4gbD3tFb6+YYTtaKL2sH E3hI6sMuZdIlZ1KVtvM816PnS v hPSjEbkdk7twc2eudHz5OxSiJ FZyyvTuhNiuTVA6t0XnBn79O5 LodRvls1OuYvq2em04wOAzg0F 5 kID5R9SvUYCpmdjqlHJykAdnK J5tKCFwhnfqZCJxwI7mTFVmL8 b4SiUtAbV0VWdtO0PhtiK0NVE v mRDhNZNosAXIeV4ktzqtg1ffk fneSaEjJXTxUOj7KCr8GDTalR jwUzNrILH0YsA4LDQ1vLQbdP8 h gCtgrgpmaX3nVcc+LPo5g1nli SKlLM1atQN6PR31LD29aXSfp8 X6uWQ6E0IsNUNeedevgttpmWE 6 LMTzWBAdkN05Jv9doIsqGu6sE IBsWSZ9XIQouFKoQ3YuhC5sAv HuYVPaTGHqF0KdvRVzNAvkX23 6 MLhyUnU9UBKypcCzZ7DuQMKaf JpwOnC4r6L4Lj1FIX34KX13AE 45dIVlq7U5bEC8K7GaDRRuxir t kvzpgKJ6YKTpCTEicX85Wj9et PsxDj2vHPVcCFZ5GMTqwGAzC0 CkfI1cFdMyIWTrWUAaM2WvfCU t YXcbO012QAnbJbH5GANacqIfP 2ZdKCWteNbnAiI9m3N8Lu5RTc 66WU22VX21zVRan9M9tLP2U7Q h SPDufxxurjsxnKF0CUOhSRFlm H20Zt1jvQjoYf2rXSFhJET4OC OgzHHjP3FwfI0oRnPzZBPsTTK w W9DpzJSuJWhsX731MXdgZzA7A AVneuPyP8ItMRAveNfqMrJ6v1 J6Dx7XVRfmkcr9O6CyCwrrkPH + MN65QDToEF17lRZmiHNjy3umk Uv7AzJqEVRiBTD7yFfjRIbsn3 DtIGIaI78wvUBun6I1XYWzwWw h cHN (more content not included)... [facility] Coding Summary HTMLBase 64 WfnwyhswQVq9nAo+PGhlYWQ+P D3IXXCnQ51ysODdoM6fW1FDCE lOSywgQVBQTElOSyIgbmFtZT1 kaXNjZXJu IC8+EI4iUHLiSfjwlIIvc2Z7m NC5W49gmw3uDOuudRK1QDMfDo Oesnfiy5amrOk1UJotQfjuLtB t CPKkmX01BFU4cA52Tt77nFAlh CJpt5wplUv8ZeTvVTLgWXO0aD mgYVcbj0KtPNOmN34fyHAkm4R 6 HCNnpDajqBAyKbJulOD3aH7rJ Tpsizeqk5kizdwbFzj2qa41tO Pcc5S3hFE0T9PoqtM6QXZytFI g LvphiVEJbJ1itvclm0zzomttJ uRgHYEjJWy6HUh4FGVxjZnqXo JvZM34QWT0BZRjroHeV5MeXXF s aUeyVnS1n7X1Jv7ED6TQIvamK 1VNTUFSWTwvdGQ+WW18en29E0 NoHjncCgl0JAJgUHF3hYA4qL5 n CNXoUUfju4J4gTT2C4CkcgGyw y8bb6lgAROhKIobA26auHGgd9 N9QDOhlTN2GKCtlMrhRpObgT3 3 Oyc+WMWltFdvr4TkOytgo8jlv 8yntJk0EaqmPIBkjcSssNogHS G1q1XwBr4xBZGqzDK9gYN4uJ0 i LhAwEnH2QTtlZ297GmLpuHYjU lzxY11wN6BfwBW+EBDsSwx7NJ DclKjwHX7iD8FfUVGazyrkrKB m kIrhJK7uFGYcyagpTCUhtQ2wI OCdB0k1BpPfXyO1RMymD4GrRF HoxifmPi85pV8cPjFkAsP8VUw u W6GcvxB9WNHzhEPwUWezJVK1N 84xt4R6ECXwCXBmWIT5gYY1rJ 1hbGlnbjogbGVmdDsgdmVydGl j IQcwGTbqM319NWOueHcmLrMoE GluZyBEYXRlOiAgMDcvMTAvMj AyNTwvdGQ+WAChWDK7zVeaFVO n oHGhBCarJp6mcMttvQghFZ8wX UDusosfBLUlxG9lMUCkyOJpmP lhZQ8pAVSglrosr230KpBdGTZ 0 ZMMloGOdC1SvrR3oUoXzADHbK OBrO0OztHNhVBecV569EBrxOn T0LZWstjYcA8CuCOHwmNllIiP 0 l9T5Bf1Ov3OtpdraM2TpsZVrN sBzKleaOLz1D0VoGwmaaEW+PC 95UHWcAV82FRx9QMG3dDvdGCy i CCHuS0ZjgQ7gMdYiAGNfWNEjR yc+PHRhYmxlIHdpZHRoPScxMD ZlRoZtjGtwUV2tPa0lMFLrTRW v sLhotYWqSxWab6tbSFKoEPhmU S5axKncY8XqlJR6XXQgc1j2Dk 41K39kP8CdoIG+YFMwyRP7qMS 0 rY0xQjWsRhN2LUoyY871NjSgk HWpUihjt2onw8xofMw5NhS5HM PgimRkrFpfZIF4k4BrGc50X59 s IHdpZHRoPSIxNSUiIHZhbGlnb m9kuK1qGb6+DUPxiRB1pYU7wL 2bZiSrAvC8NBeaD057WhQpaNF v Bzoek3xds5leyUu9JaKvGCCop wGdcLhhFDQ0e7CqMe02O4FfqF szl8UsEjg8xp26tDDgn1A1hLG 9 X6PvBIXgefrddOJghVqlAV6rI GWgszczUFWpoK9sLXZiA4i4Mh GhZmF6SNbvH2BobtM2CLYyyGH g BTEivMIRhW9ohgtsx9zfqvqxG oFsYENnTHb7VAx3LSCrqFyzVv XzKZX6YfM0PVI3wFMboK8cuKc n jceqrL4dZru+EAZ8wZIzwLRPR K9bYycnbYI+FOMgFHM6eJowQH dyGIZjbW3mWWGjJ9r2DoQzUnI 1 TXjeB0KadzF7NIVlfVRtLQImk OMMcJ8gjhdfv6drifzkZyAvJI FiVTi5SZi9NRDcxTroLcHtCAD 0 RnN3NXZ2uQLllN0ryLoilgeyj G9wOyc+OteykLtbUFM0FKs0W9 XmHcm7QPVcgUyaEM6lbXBpHPp u Da1wsFhgdUvuBI8gSBPrjpowb 789DzZco3faNMFltUYrPVkmAL W4B81bx3P7JVOpXNIlNNY3tVI 4 pT4ygFkwanmikGZigGwpujCpj BexOBknNDwyI715JYVleUfqGu XjJNz8W1NoWbz0MDUxqSaaSI5 n vMGyNDmcSj1pjCcgeBeoDT5iR IKbrpamt365AiEgi2ewAAPxpD KcHXhyZMF6L28vz9F7WRGqZJT w DCT5vNO8lX9hyMfsicbbnHTlu TqdmgHxlWpcMGtiTOmsW464PI XfoHhfDjMysUy8I5OvKtp2ODO z wLztYT9xtZVyVGziYx1wfDyyy ZthVU6rTQElgsdkx512VgYhx7 czYCInfPDjRZgnPZE0C08ua0O 6 GDDvBEHzFGG1wTQ5sV3vlSbdz jogbGVmdDsgdmVydGljYWwtYW ruF224WMVidWqcFgXlcGcxtqJ g VYxzTUo4L5UoReablMF+PC90Y GMlVL78eWEfzIGgi8dwqJb2Lk AaCQZnCWL6rVddKUhga9KhKLU t H45bhDWtl7X9JQJozSydnNDgR dAhsIK4kJ6uCLijxydzv4qdbj tcVwtbp0wtka49fN12T54ePYq p VQYgMDFxMGIaKWJklVelrv8bs G9wIi8+RRMbqEJ6jMK1uS5jLV ApXmF6YZohC862RxWklMYjZvu j u0rft6ravNj0DcJ7KAPjizIuh DsjNVZ6c0KiEk92G89yJJxhCM JxPLUlJXLyZEOjrKwtwt9bpG7 w Ii8+GZXoiHK8hPW8vJ1mSiRqL uJ2ZShxQ174JxNfeLAtCwfuZ0 3vA0ChbUR+YCJvYjv1MDGwpQm s IF8wlDYuSUeqXr8yVAX4JgLsY jWpSErmN2FmQKYubbayilbkgM D4QIQxKEKtiZ21Ea9tdQttZUJ w zOSWkL4hzbyrb8obegvuGbBvJ QSsMWt4PUp5VEFiuJuhItQmOK B7TvH2QXW7aNXcnF5wqDnomev g lV9vA8RzGDQnbjwjNx20jX1cN bOzOmT3UJybXyh+RklTSCwgSk FNRVMgVzwvdGQ+QDCeJET7xDi l IHvmRMUsyZ9nHKFlK3x4YiIyJ hB0URndN3BfELAxynmxYf36eQ 8iZxAzJyI6LReeT5DtklW0GFJ w dNAwTMaqBFV9Q25ww5V8XEWbD HFvRXL2iCT2aL9mjUmefkxyoM NwlZduzyDmcSyeZZpoAHunM22 6 ZIOwaHjyGpCbArH3OgX9NdB0N 8ZqBma7GKJyrCkfVS4bzXLrBG bhYq0plJglbSipJY6lEYCoytl w UYXudG4zAVMdxWTifMmqWC0wD TLhljlsf910MsLtYTL3PRIrnO FpN8VhpW8yOnQhLPJgUXMqU1J l pXGrYMfjT646MDxnQdN5QAWhv kZnS6RhNOOtmGqqIwM4l5B7Hs 44OCBZZWFyczwvdGQ+PHRkIHN 0 eSddLVdsVWJneF4wQGZzV2r8W kDkUxV6KUneD6UsECKvkwveIu 37jJ3tEpTyGsL8XQouQ0FanrC 6 WBDquWSmUFkzVGT9Z32ir2S5M ZGvBOBjBMJ5aVH3sR9vnRernh ogbGVmdDsgdmVydGljYWwtYWx p S270CIVjyDsoPd3XLET9L1NyA rs9KQXwmQpcUD4wbVUeHSrxZo 8lhKcuaSjgZJ9nYDPwmgurSTH k yI6oDUJipAHekJttIM3yANEkg toac224HvIjDCU5OCYswZKqE5 KkaX5cXvSgQFPlUJUrV9EohXR t ZGgaP814OWsxQiZ0JOPuumRgV 5PfQRLgvRnlQjR9e8X9Wj8MHB wvdGQ+VT87xu00Z0QmIdlcAez 0 AWDmKSN5gXF3xY2cOLPsZJaor 8J3gUT4O8HsgpTjbv9tp4mvDR KmBQodD69hiMYou4B4SXDwhYC 5 UNHohRyrPpMyqD84Ods+PGNvb Uezm4HfKwetz5fpq6yryJy4Vi RjPDTjenRujUlyJGP3p0PlKn0 8 L85jNVztDGSmWTDkZAJtNVYni Csato2scB7bCy0+RODwnJM3dH F2mX3xDeHrGhD0MSneT747FhL v vEOmSbdas7njo4izrZg8RySyM KElykWomMrcOTZ7k2YdFe04C7 AexZoln2LoYdo0za84eNWwz8H 5 tNF2F0DrULKeomtmzZLptRumG Z3iOCNhjyifQXLxfE2xWQXtA2 n8MdQeMiO1BLkmC6JxmwC0TWU v vZXgBREheRFZxB9mpjggj5ube fsnSoIrIPTsPPs4VQn5BGXonF yzReAsFRW3MnT3KWW9yMRxwG1 h aEjjlzmmtL0rWlt+FHx8f9mnx VTlFG1klWM0HW41PS08fQNnq2 H1xPI0K5QsEHKrqzwaafngnNW 6 AEMzCJZwiX05Yl7caNxoJm0yY GIiUQK2KWQryVZjN6TheL0nOq BgGAVfIOMsK7WzeQUvNBirV97 6 FTajDjV4PIUysqFbH8WgUFAzx OzjWqQ8n6R1Ht9QKN13VE00LU 12yKGxf4O7cUN9U9JpWHTpccc t gcmfxVJ9QTZtWEJexK24We3kq PwsEl6xOFBrQVZ4TOCyiLFoW8 AxfO2hNxMlMMDaLUFwK6IlpMV t RBwkN627SEkjHvB9DWLmseJyA 5EqKEHqsIhiEsD1d3O3Yy7YFk 38BX71OP25oQDhe3T1tQE8M4S h BZNmpsitnramuLU9UDPqSEKkq B31Pw9maIesLl2rNDXiNQR6VO NosFYvE6YboV1yEoAiUGIeZMC w D3SvsOSoLElwZ160VCpuGsL4K NXhuhDhY2BiOWNvtLcrJsW2d9 N1Xe3LUUaqrvn1V7TgEzxutSJ + PZ54DWIsJL37eYYuwKHdo6rbj Vs1XiWlJLOfDEI6xKpeYZoby8 OxRLPoY91ekQRpy7E6WVDnsLg h cHN (more content not included)... [facility] Wound Care Noteon 12-19-2024 Wound Care Note [id number]#[email or web address] FF [facility] Coding Summaryon 12-05-2024 Coding Summary HTMLBase 64 MzbpdemcKMb5lEw+PGhlYWQ+P R8SJPIbZ36fbWZoiS7iV3VFHL lOSywgQVBQTElOSyIgbmFtZT1 kaXNjZXJu IC8+JZ4oDXPeRdpugCOkr9P3i CT4U91nko9nYMgrcFP4XAJiUn Olfubhq9qtgTk9UFtfJodeLwF t OHJkuB12LDY7pF60Sm59jYWsn ZPiq1fgbYu7IoOyQNClCCD1zR mkBKppw0VdOSGfU09ctLUcr3T 6 JYRtyVjuaEQuZlNikNG2tR3nY Brqhbvit8syuqbtLcd1nb08yQ Ynf4L8sNK6A5NkquJ1YZQuxMT g EqbzzHNGrJ9vnglwy4iwvuntN qAvKIImYRw0MMh8IATdwNzfJa UgNH66NKW3NLOyrmDzP1DkZBD s fSytBzC9n2P5Uz1YI1AEDumkQ 1VNTUFSWTwvdGQ+MD12pm98D3 JxAynjBag5QXBeQWR0aLR0hA2 n TLZxPOzsb7V4zIR7A2GacxZdk x3re5hdAGTjYUulV80qwMWdw9 L2EPAsmAJ9YJSviFdbBiRibR0 3 Oyc+RAJtuVpuf0MoWxbpa8nwu 0icsMn2IxbaRXWnzoPbhKzkWA V8u5XdOe1rRNKwzWC4pIE6oU3 i QnTxXhI0EJzoZ557RsEntEGnS ysxP27eC7RioED+GFYzZts3UV RlgKnrKA6nZ0FnZITfbfjqfLF m tFctHE2tWDDjmgjuDJJqjL3jS TIiO5r1VkJlDsD9LXdoZ2DbAA KnfqfdKg71sI6nYrYbCqV5XPq u O4YtokY0LVNdfZEdTPrvXMI8D 59mq4W4TWNvVRXlDXF9mQB3rW 1hbGlnbjogbGVmdDsgdmVydGl j QNprTVpnP481EPInxUeaZfCrZ GluZyBEYXRlOiAgMDYvMjMvMj AyNTwvdGQ+VSIiKNJ3gRviEHS n hOOdHMerVb1lzJkqlBmgJO5gG XIsspjjOSQezB0uIGYogWJmwC jfUI4wMOIcvpgte688QdEbMOB 0 JUQsxBClG5ItzF7nIfGlMCLvD WJkY7KksCBuBPehX704KCppYc S2CGCnlfEhM2AxKJBhbBjcOnZ 0 a9X2Rx5On1AjtiomQ7DquLBuR xJyYlmzKTw2W1UcNgdsyCZ+PC 80JSGhNG56OXc2JCU0lXymYXu i CQYrK7PqrH5vJjCbYSUzQLKhS yc+PHRhYmxlIHdpZHRoPScxMD BgNmGddZqjFQ3yBn9qNNZeEQM v wTkilUFmLyLio4tdSQKzWKhoX U2oxVxjX7ErdRV9QMEvw3c7Yr 08X63yO4EylRU+YFQgcYS9zKW 0 cG1jTvQnOsG7BJovR876NnFxo RTeTttmi0pcl2shzYq4OqN4HA VissVreFswTHR2l8ZiHt05N08 s IHdpZHRoPSIxNSUiIHZhbGlnb f4xeX2kTx6+KUTtjCO9sZB7rH 9nVbLiDtC3PEidR687VkQluQK v Nskrr6las2cdtZn3WhRfIIVho qZvuKasSKK1k7QkVv58W5CesL afa8HsAyk2km30iCWgw5S5fXK 9 S3UvUPArkvliaXWvlRemBX0vD HKqqsbqHLOgaM0jJTQmO6t6Yj EfYjT6LBkrU4RmwcE0YCEvqVM g HCDkiPOXpN8vpueqo6ilgbxpV xJhGJKgPRh6JIa1XPTvaIclCm JqOJC5NmU4NZL2fQSwjU9sqZy n jpifuK7jCcj+WUH4dLCkyFDLL B3mQolgtEM+KBBqKSF7pQfyPX liWVHbiG8vTGKcA4o9IgLyXjT 1 NNalA3KyqnH6CXJcqGKgVCJov VUCxA1kkomwf5efgjngTnFyBC GaHQt4SOb8GXOntBqzHmErEGM 0 QgM6BZH5tJPbjY9xxNfsopexr G9wOyc+NixpfPfdSNJ8PUm9Y7 DgMvo8TYOhrOooNW7clARtNAz u Ua8rvHxtwXogHB7zZZRullnfb 698VrAwk9gvLAOikRWmOHzzKR C8C74lg7E9HUZzJQSiLJO7rVR 4 nI5zqMzxneqcnCCwbRyaeiUxm ZkoKXmaAVbhE075ISLeeSgsQz KdGNj7Q1KjKro3ERDsqDmhTV6 n oIOhTCbgWi6mtEqroUjjDD2vY NHfubnkv325WhHsv3chTUYloO MlJFzuVQR7H61nn8C7RUZjPID w PSV8fIO5dC5cyYwgommlqYHmv KoupkObuZkdGIjyAVpxY778PG DipDdbUxPagBw6C8EpBtj3XLA z lNuiJO0toVFqWNhmIt9kjXkov DyyLV3sMELspsgau577EmCbf3 ypRQRvoPWaMIjtECW4M69sa4D 6 YVEsBJDwZRC2jJO2kH9vyAiyj jogbGVmdDsgdmVydGljYWwtYW pqY120VIMdmQifWwMnmItwmhZ g YHudWIp7Q7AvUaftuHU+PC90Y BLkDU44bBLtfDLfo4pizEw2Hy SaFHFfJDX8kRujGEyqb4AbMGL t U44yhFNjv1A1IZAytNztaPZlO xIknVV5aN3uJKyjftwuc2gusc lzUworn3yuws90hH16P94dMNx p GDZnNETpTPWeBGObuJitrb4mu G9wIi8+ZELruXQ2qRG8pY7yIV SqViA8YEgwO898BeOkdYGaIpw j j9mrx2veqNf0MoB4XMDxytRbm AxnSOW5q3OiKr85P28rNKdnIM XdTRWeDFFvMOGvbKpmmp6gnU4 w Ii8+NHKwhEC8zGZ2lN5kXbFjJ aJ4KFgrB211WzFqyTIcTnniO3 3yQ8WzsKE+TVYzLnc4JXThxYp s GJ8ilXZrDOnzHn0gJGJ8QdMvI hFmLJhrM2GhMRXoductdfjutL Q1OALdQLRehQ06De0jaYvcPMG w jHZGfK4qolblq8kdofshFePiQ EVrUKu6ZSj6IATvvSwtVuAfXC N6XnD4PEV5sXUarH1ckLjqezl g xA0rD7BzINCpwccwHh73cH5tL aSqUlL1TCmlYar+RklTSCwgSk FNRVMgVzwvdGQ+BMUtGDR5hKd l RYwbTJLqrM9mPTXbJ1x2TmOaB sA0STreF3LmRUCmtqrxHv22wG 6dMjGiLzZ3BDbtP6XitcS0JUW w oZNiFGvnEJU2B11qb2L2VBEpP MFzNBX9eIM1rQ1smTqcpmtjaL UfyGwbgsCqqZoiZDadLKhwL53 6 RTRswYncTdZpRmV6ByD8AaO4A 1MyRqa5LIWhzIplNG5fxKKlOW ywEl1lkLgfdWjjIT8jAUKobpq w ORKrvC8wKQQrzBZwkHenIH9cI WXcmvbvf660HkXaSFM2EANdrK XlQ0FgeB0xCpNuYKLqVMMmH7F l tAMiIVqoQ407ZEbdLhC1GGRlq aCuM9RfLCMxgJtaWgV3h5T4Ui 44OCBZZWFyczwvdGQ+PHRkIHN 0 dNdtODnmKSMhmN2jXORwJ1r4C tRiBmE8FRfmK3EzTKQxucvcKc 31aL3uEyIcQaO1JAlgI9LoxjN 6 PCLqdOHrZYmjWDI9V74pq0R1M ZQrVXTfEPQ2cLW7iT0yfSidia ogbGVmdDsgdmVydGljYWwtYWx p B033UWWnsVueTl0AWOV5N6BcS qq6OXWudYbaAR0osBBvJIthGg 6aeHvltHtkYY6eQDVqnfmiTBR k kN7wWFYzhMZekAryYX1hHXLvo fjcv407RfYgEKC7BIDxvWMyT7 OxjT1qBkKmFYTfPTEsF9YybUB t KFfkW325LBmyZsR4CXNgoiCyE 6VlOJWsnAhyGmA4f6P3Zw5OYH wvdGQ+DA83hl88P1WiKfjnSxn 0 DQLkZNA7sEV1rY9cPOYnDTiio 6G0bUP8S9TkehAyva3iy2ckVA QlKPlxX08ijZZxv4I6QAPrhUE 5 MIIjsLmxRoZhwM62Dxg+PGNvb Dxrm5XwFxsjt9rsx0ikvSh2Mm OgHEQlnzBhxKkfMNV9a4CuVc7 8 J96vYMbxYGDePPQdBUXnFJLgx Hvtgz4neS1aHm7+KUPstYK6oT A7pT1jOlDpFsD0USsnI436NbF v mPBmIkcde4hhi3ionBo6MvDwD NLzjeHgqCckZQE3y4MxKt63D4 VuzZdgg4AuYfy2eo41tJFmp7Y 5 bDS8S4KaCYLjwqsirECgmQxoJ Y4kIIPpeqypCJFavY4wNARrI5 v0RkTxNqV7TRxvT4AutuY7KUN v wJPoGQUxcCJFjT2avwuyn3fhn kykMeBrCAWoKVt0UDu0DEMnmS qnJcSrPFQ6RhZ8IJL7oXEalO2 h nHjtxaqiaI5fYqs+NBn7u0wuk LYaFG2kyHO4DY96TW31qALsr5 P1qKX9O3PgEJQczyktqxkdmLM 6 QFNuDFOifP53Ij7fuXhuVt1aC QNwDVU4QKOfeFArY3DvpX4qJk AwFJGfIKYuB4WqlGPcRIpkK01 6 UJxeYwX1BLDjyoHsX7StDDCya VlqXhW4o8Y1Fu5QJE23LN56AD 62eRVai2C3qLZ5C5HvQHWgknc t fxgvqTW6FKJiMNTbnY76Le2vg CsoYu8yLLYeROJ9ICEorRWyL6 WqmU5tWxExFOGcZAYwN2CwxEA t OPmxM813GCnjHiJ0FSOjdmKiF 9SoEFEhcJcdFgU7b0L7Ax6IVf 58QA68PD58gJTcm2O0gGB2A5D h DHFjhmnivunhyZI6JIZuHIDbg N30Cx4toStrZj4pWPJgMUD4WV TpuPRcF6NcpI6gAbFlFLPsBZQ w O8ZdaGFuBKaoS337JZfwFyJ2A PUrakWlF7JcKYUdeWsmZnE9q8 E4Ok5GTZguxlr5R1KwHhkpfGU + JK58UNMiLE98nDEjbHWpq1ouc Vz7JdZtWWFsBGW5yNzxAPuej0 NqDSKzC68liGEtl1E4YLFhsBu h cHN (more content not included)... [facility] Wound Care Noteon 12-05-2024 Wound Care Note [id number] [facility] .Interpretation:on 5 HCV Ab IA Ql Comment Invalid Interpretation Code [facility] Comment on above: Result Comment: Not infected with HCV unless early or acute infection is suspected (which may be delayed in an immunocompromised individual), or other evidence exists to indicate HCV infection. Performed at: [facility] [id number] PhD Robin Wayne Performed By: #### 2 [id number] #### [facility] [address] [place] [address] Comp panel: Leuk/Lym [id number] n 10-27-2024 Analysis and Gating Strategy Comment Invalid Interpretation Code [facility] Comment on above: Result Comment: 8 co charla analysis with CD45/SSC gating Technical-Analysis performed at [place] [address], [email or web address] [facility], [facility], [facility] [address], Director: Chapo Abrams, [facility], Performed By: #### 1 [id number] #### [facility] [address] [place] [id number] Annotation comment [Interpretation] Narrative Comment Invalid Interpretation Code [facility] Comment on above: Result Comment: 1. K [...] up as appropriate. Performed By: #### 1 [id number] #### [facility] [address] [place] [id number] Assessment of Leukocytes Comment Invalid Interpretation Code [facility] Comment on above: Result Comment: Willie a [...] monocytes are detected. Performed By: #### 1 [id number] #### [facility] [address] [place] [address] Clinical information Comment Invalid Interpretation Code [facility] Comment on above: Result Comment: Acco mpanying CBC dated 10/20/2024 shows: WBC count 6.1, Kadi 3.8, Lym 1.3, Mon 0.9. Performed By: #### 1 [id number] #### [facility] [address] [place] [address] Immunophenotyping study Comment Invalid Interpretation Code [facility] Comment on above: Result Comment: CD2 Normal CD3 Normal CD4 Normal CD5 Normal CD7 Normal CD8 Normal CD10 Normal CD11b Normal CD13 Normal CD14 Normal CD16 Normal CD19 Normal CD20 Normal CD33 Normal CD34 Normal CD38 Normal CD45 Normal CD56 Normal CD57 Normal CD117 Normal HLA-DR Normal KAPPA See Text LAMBDA See Text CD64 Normal Performed By: #### 1 [id number] #### [facility] [address] [place] [address] Laboratory comment Bunny (Report) Comment Invalid Interpretation Code [facility] Comment on above: Result Comment: Each antibody in this assay was utilized to assess for potential abnormalities of studied cell populations or to characterize identified abnormalities. This test was developed and its performance characteristics determined by [employer]. It has not been cleared or approved by the U.S. Food and Drug Administration. The FDA has determined that such clearance or approval is not necessary. This test is used for clinical purposes. It should not be regarded as investigational or for research. Performed at: -Y [facility] [address] [facility] [place], [place] [id number] [facility] Jose Alberto Cowan Performed at: TG [facility] [address] [place], [place] [id number] [facility] Jose Alberto Aponten Performed By: #### 1 [id number] #### [facility] [address] [place] [address] Pathologist interpretation (Unsp spec) [Interp] Comment Invalid Interpretation Code [facility] Comment on above: Result Comment: 1. B -cell clonality cannot be evaluated, see comment. 2. Relative monocytosis, 16% of leukocytes, see comment. Performed By: #### 1 [id number] #### [facility] [address] [place] [address] Pathologist name Comment Invalid Interpretation Code [facility] Comment on above: Result Comment: Дмитрий Ashford M.D. Ph.D Performed By: #### 1 [id number] #### [facility] [address] [place] [address] Specimen source Nom (Unsp spec) Comment Invalid Interpretation Code [facility] Comment on above: Result Comment: Anna pheral blood Performed By: #### 1 [id number] #### [facility] [address] [place] [address] Viable cells/100 cells (Unsp spec) Comment Invalid Interpretation Code [facility] Comment on above: Result Comment: 69% Cell viability in this sample is sufficient for analysis but is less than optimal. Performed By: #### 1 [id number] #### [facility] [address] [place] [address] Copper Lvlon 10-27-2024 Copper [Mass/Vol] 141 microgram/dL High 69-132 [facility] Comment on above: Result Comment: This test was developed and its performance characteristics determined by [facility]. It has not been cleared or approved by the Food and Drug Administration. Detection Limit = 5 Performed at: [facility] [address] [place], [place] [id number] MD Nelson Mclaughlin Performed By: #### 1 [id number] #### [facility] [address] [place] [address] Flow Interp 16 or moreon Flow Interp 16 or more Performed Invalid Interpretation Code [facility] Comment on above: Result Comment: Perf ormed at: -Y [facility] [address] [facility] [place], [place] [id number] [facility] Chenn Anjen Performed By: #### 1 [id number] #### [facility] [address] [place] [address] Flow Marker, Firston 025 Flow Marker, First Performed Invalid Interpretation Code [facility] Comment on above: Result Comment: Perf ormed at: -Y [facility] [address] [place] [id number] MDPhD Chenn Anjen Performed By: #### 1 [id number] #### [facility] [address] [place] [address] Flow Markers X 15on 10-28-19 25 Flow Markers X 15 Performed Invalid Interpretation Code [facility] Comment on above: Result Comment: Perf ormed at: -Y [facility] [address] [place] [id number] MDPhD Chenn Anjen Performed By: #### 1 [id number] #### [facility] [address] [place] [address] Flow Markers X 3on 5 Flow Markers X 3 Performed Invalid Interpretation Code [facility] Comment on above: Result Comment: Perf ormed at: -Y [facility] [address] [place] [id number] MDPhD Chenn Anjen Performed By: #### 1 [id number] #### [facility] [address] [place] [address] Flow Markers X 5on 5 Flow Markers X 5 Performed Invalid Interpretation Code [facility] Comment on above: Result Comment: Perf ormed at: -Y [facility] [address] [place] [id number] MDPhD Chenn Anjen Performed By: #### 1 [id number] #### [facility] [address] [facility] [place] [address] HCV Antibody RFX to Quant PC Roberto 10-27-2024 HCV Ab IA Ql Non-Reactive Invalid Interpretation Code Non Reactive [facility] Comment on above: Result Comment: Perf ormed at: CB [facility] [address] [place], [place] [id number] PhD Robin Wayne Performed By: #### 2 [id number] #### [facility] [address] [place] [address] HIV Screen 4th Generation wR fxon 10-27-2024 HIV 1+2 Ab+HIV1 p24 Ag IA Ql Non-Reactive Invalid Interpretation Code Non Reactive [facility] Comment on above: Result Comment: HIV- 1/HIV-2 antibodies and HIV-1 p24 antigen were NOT detected. There is no laboratory evidence of HIV infection. HIV Negative Performed at: [address] [id number] PhD Robin Wayne Performed By: #### 9 [id number] #### [facility] [address] [place] [address] Hep A IgMon 10-27-2024 HAV IgM IA Ql Negative Invalid Interpretation Code Negative [facility] Comment on above: Result Comment: A ne gative anti-HAV IgM result suggests no recent or current HAV infection. Performed at: [address] [id number] PhD Robin Wayne Performed By: #### 2 [id number] #### [facility] [address] [place] [address] Hep B Core Ab, IgMon 025 HBV core IgM IA Ql Negative Invalid Interpretation Code Negative [facility] Comment on above: Result Comment: Perf ormed at: [address] [id number] PhD Robin Wayne Performed By: #### 2 [id number] #### [facility] [address] [place] [address] Hep Bs Abon 10-27-2024 HBV surface Ab Ql (S) Non-Reactive Invalid Interpretation Code [facility] Comment on above: Result Comment: Non Reactive: Not immune to HBV infection. Equivocal: Unable to determine if anti-HBs is present at levels consistent with immunity. Reactive: Anti-HBs concentration detected at greater than 10 mIU/mL. Individual is considered to be immune to infection with HBV. Performed at: [facility] [address] [place], [place] [id number] PhD Robin Wayne Performed By: #### 2 [id number] #### [facility] [address] [place] [address] Hep Bs Agon 10-27-2024 HBV surface Ag IA Ql Negative Invalid Interpretation Code Negative [facility] Comment on above: Result Comment: [facility] at: [facility] [address] [place], [place] [id number] PhD Robin Wayne Performed By: #### 2 [id number] #### [facility] [address] [place] [address] CBC w/ Auto Diffon 5 Basophils/100 WBC (Bld) 0.7 % Normal 0.0-2.0 [facility] Comment on above: Performed By: #### 2 [id number] #### [facility] [address] [place] [address] Basophils/Leukocytes Auto (Bld) [Pure # fraction] 0.0 E9/L Normal 0.0-0.2 [facility] Comment on above: Performed By: #### 2 [id number] #### [facility] [address] [place] [address] Eosinophils (Bld) [#/Vol] 0.1 E9/L Normal 0.0-0.5 [facility] Comment on above: Performed By: #### 2 [id number] #### [facility] [address] [place] [address] Eosinophils/100 WBC (Bld) 1.0 % Normal 0.0-8.0 [facility] Comment on above: Performed By: #### 2 [id number] #### [facility] [address] [place] [address] Erythrocyte distribution width (RBC) [Ratio] 15.2 % High 10.9-14.2 [facility] Comment on above: Performed By: #### 2 [id number] #### [facility] [address] [place] [address] Hematocrit (Bld) [Volume fraction] 35.3 % Low 37.7-49.0 [facility] Comment on above: Performed By: #### 2 [id number] #### [facility] [address] [place] [address] Hemoglobin (Bld) [Mass/Vol] 11.7 g/dL Low 13.5-17.5 [facility] Comment on above: Performed By: #### 2 [id number] #### [facility] [address] [place] [address] Lymphocytes (Bld) [#/Vol] 1.3 E9/L Normal 1.0-4.0 [facility] Comment on above: Performed By: #### 2 [id number] #### [facility] [address] [place] [address] Lymphocytes/100 WBC (Bld) 21.7 % Normal 14.0-50.0 [facility] Comment on above: Performed By: #### 2 [id number] #### [facility] [address] [place] [address] MCH (RBC) [Entitic mass] 28.7 pg Normal 27.0-34.0 [facility] Comment on above: Performed By: #### 2 [id number] #### [facility] [address] [place] [address] MCHC (RBC) [Mass/Vol] 33.1 g/dL Normal 31.4-36.0 [facility] Comment on above: Performed By: #### 2 [id number] #### [facility] [address] [place] [address] MCV (RBC) [Entitic vol] 86.8 fL Normal 80.0-100.0 [facility] Comment on above: Performed By: #### 2 [id number] #### [facility] [address] [place] [address] Monocytes (Bld) [#/Vol] 0.9 E9/L Normal 0.2-1.0 [facility] Comment on above: Performed By: #### 2 [id number] #### [facility] [address] [place] [address] Neutrophils (Bld) [#/Vol] 3.8 E9/L Normal 2.0-7.5 [facility] Comment on above: Performed By: #### 2 [id number] #### [facility] [address] [place] [address] Neutrophils/100 WBC (Bld) 61.9 % Normal 36.0-75.0 [facility] Comment on above: Performed By: #### 2 [id number] #### [facility] [address] [place] [address] Platelet mean volume (Bld) [Entitic vol] 8.7 fL Normal 6.4-10.8 [facility] Comment on above: Performed By: #### 2 [id number] #### [facility] [address] [place] [address] Platelets (Bld) [#/Vol] 127.0 E9/L Low 150.0-500. 0 [facility] Comment on above: Performed By: #### 2 [id number] #### [facility] [address] [place] [address] RBC (Bld) [#/Vol] 4.1 E12/L Low 4.3-5.9 [facility] Comment on above: Performed By: #### 2 [id number] #### [facility] [address] [place] [address] WBC corrected for nucl RBC Auto (Bld) [#/Vol] 6.1 E9/L Normal 4.0-11.0 [facility] Comment on above: Result Comment: Anna pheral smear review performed. Performed By: #### 2 [id number] #### [facility] [address] [place] [address] CMPon 10-20-2024 Albumin/Globulin (S) [Mass conc ratio] 1.3 Normal 1.1-2.2 [facility] Comment on above: Performed By: #### 2 [id number] #### [facility] [address] [place] [address] Globulin (S) [Mass/Vol] 3.1 g/dL Normal 1.4-4.0 [facility] Comment on above: Performed By: #### 2 [id number] #### [facility] [address] [place] [address] Protein [Mass/Vol] 7.2 g/dL Normal 6.0-7.8 [facility] Comment on above: Performed By: #### 2 [id number] #### [facility] [address] [place] [address] Albumin [Mass/Vol] 4.1 g/dL Normal 3.3-5.0 [facility] Comment on above: Performed By: #### 2 [id number] #### [facility] [address] [place] [address] ALP [Catalytic activity/Vol] 101 Int._Unit/L High 21-98 [facility] Comment on above: Performed By: #### 2 [id number] #### [facility] [address] [place] [address] ALT No additional P-5'-P [Catalytic activity/Vol] 18 Int._Unit/L Normal 6-46 [facility] Comment on above: Performed By: #### 2 [id number] #### [facility] [address] [place] [address] Anion gap [Moles/Vol] 13 mmol/L Normal 6-16 [facility] Comment on above: Performed By: #### 2 [id number] #### [facility] [address] [place] [address] AST [Catalytic activity/Vol] 28 Int._Unit/L Normal 5-43 [facility] Comment on above: Performed By: #### 2 [id number] #### [facility] [address] [place] [address] Bilirubin [Mass/Vol] 0.7 mg/dL Normal 0.0-1.1 [facility] Comment on above: Performed By: #### 2 [id number] #### [facility] [address] [place] [address] Calcium [Mass/Vol] 9.1 mg/dL Normal 8.9-11.1 [facility] Comment on above: Performed By: #### 2 [id number] #### [facility] [address] [place] [address] Chloride [Moles/Vol] 106 mmol/L Normal 101-111 [facility] Comment on above: Performed By: #### 2 [id number] #### [facility] [address] [place] [address] CO2 [Moles/Vol] 25 mmol/L Normal 21-31 [facility] Comment on above: Performed By: #### 2 [id number] #### [facility] [address] [place] [address] Creatinine [Mass/Vol] 0.9 mg/dL Normal 0.5-1.3 [facility] Comment on above: Performed By: #### 2 [id number] #### [facility] [address] [place] [address] Glucose [Mass/Vol] 96 mg/dL Normal 55-199 [facility] Comment on above: Performed By: #### 2 [id number] #### [facility] [address] [place] [address] Potassium [Moles/Vol] 4.2 mmol/L Normal 3.5-5.3 [facility] Comment on above: Performed By: #### 2 [id number] #### [facility] [address] [place] [address] Sodium [Moles/Vol] 140 mmol/L Normal 135-145 [facility] Comment on above: Performed By: #### 2 [id number] #### [facility] [address] [place] [address] Urea nitrogen [Mass/Vol] 23 mg/dL High 5-21 [facility] Comment on above: Performed By: #### 2 [id number] #### [facility] [address] [place] [address] Urea nitrogen/Creatinine [Mass ratio] 26 No Units High 10-20 [facility] Comment on above: Performed By: #### 2 [id number] #### [facility] [address] [place] [address] CRPon 10-20-2024 CRP [Mass/Vol] 0.1 mg/dL Normal <=1.9 [facility] Comment on above: Performed By: #### 2 [id number] #### [facility] [address] [place] [address] Ferritinon 10-20-2024 Ferritin [Mass/Vol] 42 ng/mL Normal 24-336 [facility] Comment on above: Performed By: #### 2 [id number] #### [facility] [address] [place] [address] Folateon 10-20-2024 Folate [Mass/Vol] 9.0 ng/mL Normal >=6.7 [facility] Comment on above: Performed By: #### 2 [id number] #### [facility] [address] [place] [address] Ironon 10-20-2024 Iron [Mass/Vol] 45 microgram/dL Normal 35-153 [facility] Comment on above: Performed By: #### 2 [id number] #### [facility] [address] [place] [address] Iron Saturationon 10-20-2024 Iron binding capacity [Mass/Vol] 302 microgram/dL Normal 250-400 [facility] Comment on above: Performed By: #### 2 [id number] #### [facility] [address] [place] [address] Iron saturation [Mass fraction] 15 % Low 20-50 [facility] Comment on above: Performed By: #### 2 159114 #### [facility] [address] [place] [address] LDHon 10-20-2024 LDH 218 Int._Unit/L Normal 93-218 [facility] Comment on above: Performed By: #### 2 [id number] #### [facility] [address] [place] [address] Retic Counton 10-20-2024 Reticulocytes/100 RBC (Bld) 1.8 % Normal 0.5-2.2 [facility] Comment on above: Performed By: #### 2 [id number] #### [facility] [address] [place] [address] Transferrinon 10-20-2024 Transferrin [Mass/Vol] 216 mg/dL Normal 200-370 [facility] Comment on above: Performed By: #### [id number] #### [facility] [address] [place] [address] Vit B12on 10-20-2024 Cobalamin (Vitamin B12) [Mass/Vol] 510 pg/mL Normal 50-1500 [facility] Comment on above: Performed By: #### 2 [id number] #### [facility] [address] [place] [address] eGFRon 10-20-2024 eGFR 82 mL/min/1.73 m2 Normal >=59 [facility] Comment on above: Performed By: #### [id number] #### [facility] [address] [place], [place] [id number] CT Lumbar spine WO contrasto n 10-04-2024 [place] [address] CT Scan Report Signed Patient: FANI CHUA MR#: [id number] : 1935 Acct:[id number] Age/Sex: 89 / M ADM Date: 10/04/24 Loc: CT Attending Dr: Buck Cerrato M.D. Ordering Physician: Buck Cerrato M.D. Date of Service: 10/04/24 Procedure(s): CT lumbar spine wo con Accession Number(s): [id number] [place] [address] Patient Name: FANI CHUA MRN: [id number] date: 1935 Sex: M Assigned Patient Location: CT Current Patient Location: CT Accession/Order Number: [id number] Exam Date: 10/04/2024 14:51 Report Date: 10/04/2024 [...] Trey Murray M.D.10/04/2024 2:57 PM Dictation Location: [place] [address] Electronically authenticated by: [id number] Y Date: 10/04/2024 14:57 Dictated By: Trey Murray D.O. Signed By: 10/04/24 1459 DD/ 1457 TD/TT: Executive Search Consultant: [facility] Radiology Radiologselena jackson MD - 10/04/2024 [place] [address] CT Scan Report Signed Patient: FANI CHUA MR#: [id number] : 1935 Acct:[id number] Age/Sex: 89 / M ADM Date: 10/04/24 Loc: CT Attending Dr: Buck Cerrato M.D. Ordering Physician: Buck Cerrato M.D. Date of Service: 10/04/24 Procedure(s): CT lumbar spine wo con Accession Number(s): [id number] cc: MARÍA ANDERSON [place] [address] Patient Name: FANI CHUA MRN: [facility]:[id number] date: 1935 Sex: M Assigned Patient Location: CT Current Patient Location: CT Accession/Order Number: [id number] Exam Date: 10/04/2024 14:51 Report Date: 10/04/2024 [...] Trey Murray M.D.10/04/2024 2:57 PM Dictation Location: [place] [address] Electronically authenticated by: [id number] Y Date: 10/04/2024 14:57 Dictated By: Trey Murray D.O. Signed By: 10/04/24 1459 DD/ 1457 TD/TT: Executive Search Consultant: [facility] Radiology Study observation (narrative) [facility] CT Lumbar spine WO contrastO rdered By: Radiologist Radiology on 10-04-2024 [facility] Work Phone: Coding Summaryon 09-20-2024 Coding Summary HTMLBase 64 QgscwrrnYZq4eSf+PGhlYWQ+P I0BDZQtB34nmXRkqX0bN3GEGE lOSywgQVBQTElOSyIgbmFtZT1 kaXNjZXJu IC8+WH9fZVKiNfcjeCBzt9A7n MY5Q54jnc2fNIynmNR8IWFoJp Vngvgnz7gccIt5OZnwMoxuOfA t MLPsyN99GHM4jG34Ob71yYEyf IGls7lrtHp9ZlMoLKUwWFB5iN htPExgs2IuXYQcX58bdNYvk5J 6 RJHbhXdviIKkApDlhWQ4wZ1vW Imphbgim1mzjeoqQqh8ib34nD Ceg3F7rJF4E8DokuC6OIYqfTH g MibdaWJDxC0rkiazj4rtrqqoR oYbJUGqXRv0TKd9BFNurAqrGi VtHW17FBE3TLDuofTvJ2JeHSK s cUwaCnX7p6G0Fg4QF8OGJvhqY 1VNTUFSWTwvdGQ+JL37ge71Q8 TpWnruGoj3NMXuSXQ4mFR5aY3 n YMEpNBoce7W4pEM2E7AzevAjr s4sg8zmUQDlQQtoN83koESto4 G9FUFziOJ7CBYpoAjjJjTduV3 3 Oyc+LHApjQiav8TqCojri9jhp 0bwmEg0IjsqWNZiupMmqGtyTD Y9g9IsGg8jDIWqyGI6iCA3dE5 i PqDxKfB5RBiwM467YnBtdZJxQ gqfP40bA1RuxSC+BUGtBgf4TD ZhcVhbBY1qP4WjQXDcybyzwYX m dBwnSL1cJJHnglknDLBomJ0aX MLaT5l3JgMhIpT5LHafZ8VsRX CmstumIh60bU6mZrJrUgC9VUz u X5GbxuS3KEQqqJZuMHdxKPQ9A 41xs9P9TUWjKHOjYPU8dHC0eZ 1hbGlnbjogbGVmdDsgdmVydGl j YMzxWCovU956ZYPmvSpfSwMhF GluZyBEYXRlOiAgMDQvMDgvMj AyNTwvdGQ+IXQjTBT3lBhaVCD n yIReDHqvZv9lvLtyoHfhRP4nO PHfkbgxEOPhbQ6zRYXnlMBluA svEC4tEPNfzhqwe641FdKbNHQ 0 QSNzvJQfN1HywY7qOyRbCQEiU AQuN4VgjXEhVOysP401PXilLt K6FWVzxxKmV1ZbZYWcwFvhOfY 0 j3I4Sb2Fu4OgotomB4MgxMTpA oEjFaraYSj1W4NsZguqgSE+PC 66KIZqIQ82FLu9WRQ9jSgvIBb i EJGkZ0MkdR5fPbXwCOKuWKMjI yc+PHRhYmxlIHdpZHRoPScxMD RfYiOzvNmiEF7iEu5kGAOfROI v fTpuvEXlHwZmq8boMUUyPAwgW H8sbSxcY4AivXH8DUCav7u1Kd 44H96uP7AtzLL+KPMlrZA4sKM 0 yP2pPjDlSmA6XAuhN152YvXni ZMvVqhom2aoo3dvtMk7BlJ8SS KuiwJrrUpoZAG0a7RkKn85H37 s IHdpZHRoPSIxNSUiIHZhbGlnb t9ooK8hVf0+RLEwuET3nPI9hB 9aZgHcGnG3EObnK788HxVzzQP v Andvu5gnt8xkgBq0AdEqVOAyn dBjlJyzHAE6x1NdTu22K8EtwV ldq6RyGtt6vb39iHPqh9D8mMN 9 E9UaDLKtwfwfyUEsqMrfNK9oC UCgkwmzHTYaiM4hWABjN1a4Nu PqUwX5JXndY6LlftN2ZLCtiBC g UUGlbZWGjQ0fnauga9yomboxQ hPnWRVbWFj6MGu9OVNptMekTp AmXDT6EiA3TIN4bJCmiA1jzZz n vrouuH2zPvz+LWL6hDUroTIDT D9jUgdtiRJ+FFTjXLK1sIxySE hyLKJeuV6yVGUiU3v3OwSkAxN 1 BPdtT0FgiyH4ALXmfBVgNYMra GOAwT2ytftge2xskjvlSwFwSV YyDKt5IDj6ECKvqOvuQhVfXTB 0 CoU5ILV0fHGaaK1itPdjhpxmr G9wOyc+HnnqbQmtLZU8RCo6F0 FoOnh3ZKRnyBbfCX9ebDRyRGf u Is2abTkdeHjqQJ7dLRTnybdoz 147CyIsa5leLCYucTElXFfbNL V1V66cp3U1RZJmJSTeXQV5wGR 4 bB0diEhgaqenqWYscDibgbThw IesFAqeKKstW402CYZlrPitWh FlUIi1I1NzRnm4ZTHewDmaEW9 n zTZlTHcdOl8jvTqfjLwzWO6hR RLnthorh365FlHgw3rqYIXxoF PrFWihRPA4G80vy0E8XKCpARQ w JFN5fKF6mG2tvLafnjilxMZry FhnniGpxDihMHsjHLbkH939PG SfaImvYaUiaKy0M6EaZei3JRI z wMolUM8gaMJuWOgyOt2anHodm IxyOK9lZUYbcxyue859YuDjr5 uuAILljRKeCJmiYNC1U28pz3V 6 WTPcDCMwANT8uDM9rO6bvKjsq jogbGVmdDsgdmVydGljYWwtYW gkU631GKSsbVxsVmLvdIodemC g EDcoIFb6P4PlXnsduKX+PC90Y QOtCC29kOUmnLUbg6losNq8Sx IkNJFtNCM3xXalAJvry9CuLCP t H81tpPPtc2J4FHRxoHohhCAdM wRfiNE3jI3aFZpudzmzk4xrht djRfvlx4vcpq67xV04A61tKRx p ACQqTIDsNWSuBGKasGqypo7sd G9wIi8+KVKuxNG4dYN2yZ0rSW DaCyD9WNbiA684LsDbtBEhSad j z3qhh4ofgOa3WsB4KYXbflQuo HbhZMD2n7RgId99K00fRAvuPE ErKNRlBNJmPEIqnUhxku8hlY6 w Ii8+XTMuyGE7sGO0xH3gIkLeM nK4KNprY601ZhBtcGLrNhmgU5 5gY7LfxRI+TYOhDte2BBKyxLv s BE5mrSOsPXibXo7tPNM1ImEcY xSwJRfgK9BoBXDifimihhemrF L7MOYqXXCmdP83Dz5xiQcoIOU w rOLHhG8vnjgxg3jvrwdzXmOfE CNzHWr1EYj1XKQsbUdgZpAzBH T7ByY8MQA1wEEmuH9tiZhdixf g wD9bS3DrAKGmpapiOz39aX8jQ tGfGwB8FKqyHoq+RklTSCwgSk FNRVMgVzwvdGQ+QBKkEDG0jHd l OGzzCKWftV7hYHZlI3u5DuFdP aO8DRslU8EdNPDiwsmwYp38gF 7wQtJmMeJ3IPyeA8YikhK1ODK w yQFcJXqqYFJ5C10jp8M2SABxA IDuANZ5cQV8kA0wuAzcssutsF OutGlkiuPblHmnBZfvUCikQ19 6 UPJvcPjbDsHjFtO4HaH8RtN9Q 6XlKtu0ZTFfrNfmKO1vvTAvFH dpAb0hlXaezCscQT1jSWPyshd w LHLcbT9iKXDpdYPywOukPC0zU JXhexbli499NgGzPLF5ZIZajL WlP9WmcS3pXsJyAUKrIAFgK1M l cWLsXYkrQ554KMdaGxM5JTSdy jDuY0ToVVDpdAahOtR2k5S2Ey 44OCBZZWFyczwvdGQ+PHRkIHN 0 hJxvVHbvKKMipQ4tRLBbH9j6F kXoBrB9ICwmA0VwSWIjqxgsQl 97eZ1aPhFiYcA1DTqbO1ZfmpN 6 VGNzoUDmWCmoFBW9A97nc1B3Y JRqJMOwHVY5nQB3vM4koMntbp ogbGVmdDsgdmVydGljYWwtYWx p K338YATpxPfiDn8NISY6U2YlO wu8LYFqfWsbFT2yzGPaLEhpCd 3ttReefIpaDK4pPVIhskqiULB k eQ0xNQHwaVTtoFpiZT3aWBFcw yzug713AlDuLTH2YJPouCRgF3 DyyK3bNqPeZWArFSVnO2DkzTT t QFsiT558QGbyOrQ5JHFjdfZbH 6JlQSVenDuhDbV5s9P3Di8LJB wvdGQ+KN17kc18Y6ByZlpdKyo 0 HHPdPEG5qTA7kK9kVGAlWXtsr 9H5hJD8O0KgonOfvr8hp9ixUA SpOCvoU04kgWZrg2J2MOXspZE 5 NBJpgOogXuTceX89Lfc+PGNvb Qsjd5PbSmsqo2yig3aorNo2Ku KrNQKfnqItoDpuEQT7e1FvYe8 8 D90wCEqvPWCvVIDfUVZrVUOnx Kgeec0ipT8vTi4+SVWuhBF1xQ E3xB4qGfTdYfP9TXltT973AvQ v uZBaOmqcf5eob3nkcLs6QyYeY NWgbzOqsDqtXTR1m0BjVl28D9 CwtPmfl0WxTax2hm25oNUkl5M 5 lZN6A5JtVIZwhzmhzIAxdNkrW G4xTIMndgerKUFvnR1yLTPvK2 h3BuSuHwX3UDqdZ9GnieX6YGJ v vOFgGUNuxXSFiY6nprtll7wjx rkuMrOkOYDyENt7LTa4ROLkxJ oaZuZpDXV7BpP3MFB1oBIceL2 h dBzvbjrspL5kNrj+EQm4s9iuw AOaSR7vkXI5XO26HG63eZSne1 S2ePJ9V3JvRVOfnjcogliiqNZ 6 SHMjEMRqxE07Hw3bgSlbCf8lQ GGcADE1YIZlgVJcG6FdaM3gZg VvSCTiOXVvV6FzzOLaOWlcI35 6 XJalVgM1ZLMjinHxG7YcMRPhx RsnSoQ6u0K6Ck3AYD09HS94TX 67sVSuj8W9wYH0N6YkCYYxrov t wqzhhST8GDRdHOJnvL48Rp8bk NsmLy2eYQQsACO0SNSxlOEhR8 XfsL0vTcLzUVIeCKQyV2YzoPS t YOtaZ424HAtdYmQ8SVGrsrCcI 9TmEIZzrXdcScT8y5P6Mi0UNz 50GI08MZ03xGKcf7U3fWO5D4H h GIGaeupxjqpjoGM5TRPzVNCqp L96Nb1agOiyYy6jFITvGRS9YC IalSXpZ5AktB1lYlYxBBTgPPL w L7LooQKxUNoiK321YJeqPjV0K HKcmgFnK4SaJKMkmJexJoW5v8 H3Bd3BZQxakbn4C1XuDzdfrQF + FO42CFCjTW79tJYtfVTwe5acp Xt6QgPpDPVeIBQ4yBleMQnmd1 WwJNEjF84odXLzy4V1UCIbzBn h cHN (more content not included)... [facility] Coding Summaryon 09-15-2024 Coding Summary HTMLBase 64 UtqsuczzYPk7rMd+PGhlYWQ+P J9YSULbV52kaLOjsA4aW5AEHN lOSywgQVBQTElOSyIgbmFtZT1 kaXNjZXJu IC8+IR2hUZDuSbmtrVAbs7L4c KK6V49gls8rNUhzyKF6SVCrTx Pjddmkv8piyOd3ZSsrPuarTkF t EWKadK25OHN4lB65Mb53fZQkb CPuz2ltlNe3XcVyMZSxQHA7uB toNOhgg0GdTQDuA59fuDKth8W 6 NFMdhSinfOAxSyCdiRV4uE8oK Aaeqadry4jkdhhdKqv3ib96yP Tgz9H1qSJ5E5LrotX8QTVoiVC g MgfdmHRFhW3vdohvt0zvxmgiE uIqQEHfEAs2SNw5FBKmfRzbJz EfJG61JZJ4ZLLogzUtZ2PhYHB s hNevWpX3l2L2Sj1QH4KJVlucV 1VNTUFSWTwvdGQ+GF52ea76W3 AiSpxyFsv8ZAWxEOG7jKT7rN6 n FGWxKXchh7P2gVW0G4SavoLcl j0eg2zeARNcICxiE45biKCdv6 W4YDOeaFM9HXRbxUfuXmRbbU6 3 Oyc+INWdvOzuy1ImEfmso4vli 9bjnAe4WoguKFCsxgVjlFryHM Q0x9AvUl0nGQWlsTW8mIZ4wO9 i ZkEfSfR1ENojA301VaJijTAdS ghpB20eV0XakRH+DWNtUqx5GF UeaKqfIF5iK1RmQYLtntjyeMX m bUuvNQ8rFGWzexobCFGogC8jJ KQxO6o4HoQbImU5AAifO8OcKF QxjkftYv01dE4cEaYhVyT7AUi u Y1IvvtP2ENQobILmNRptLDF2A 76wl3J0BFOhTAZkZPR1uHL0vJ 1hbGlnbjogbGVmdDsgdmVydGl j VUnlHHmqL276SVOvlPmiSgQgD GluZyBEYXRlOiAgMDQvMDMvMj AyNTwvdGQ+BLApBJF9vXsdGFY n hOBrMMgpKx2alDjlqKwbRT9yJ XHrtvwjXMZudZ0fXHIuoKTsqK rjUK5zWMHuyjlqi631VlVnEKB 0 XRIlaZUiE4PmoB3jJmSxSBRdF LHxX9CstSKeWDcqU347SCylBf K4SJPjzkOtX9QhBLRamUpaNtH 0 t7X6Jg7Ca0CwtepeR5LrpXAeR dJrOfcyEAz4I6NwFhtviRS+PC 87ETQeBB89YVs1CCB3wJukOEl i GVRdE5CbiH6fKkDkNGBhVEPvP yc+PHRhYmxlIHdpZHRoPScxMD XeNsDxbCapYQ7lZh5sNEEqMHH v hLihoNUjYdFzb5fyLVGeWJyoU J8sbGhcE5RjrVD3GKPme3c9Lj 08V28qX0PomWA+ACJvxKN3qSO 0 uV8iJyRwTuE6BAifD420LkSyz UZoEikns9wck2xgzRz3NvU9KW TcmhKzyCliYVK9p4LnXm67M32 s IHdpZHRoPSIxNSUiIHZhbGlnb l2pnF2hIt9+DKMciHS8gAY5fI 6nDfKmNrM9BDpbW435BqPovRG v Crpvr1rqc6jykMq9TdPwQUArc eDleCzdVVP6q5JpVr05U4TfvR hol7YtLqv6eg97qHUdj3I9tOZ 9 V4JiFLUsirrbhZJsxZrmND3zV RBgkrjeKBEscQ7mXNJmF7j2Pi LnZtG7WAniC0BrndN0VXEruMR g CPZtlNROqP2kupcmn8hcfkasG vReLITnWQm9HJh3SFNozCxbVp FhDJJ8RqV7GZL7gTMcmI7rmTg n pupdvY9zHrb+REC5cJXqkYFMK G3qAglrpKG+YQAsEVN3gJrlQO exPCHlkV9fRDKlM3g4NtVcVyR 1 EVlpE6JmhpS4KAYdiYRtCZAji OBCvO8vcdhqk1fjhbevKhCmER MnICi2PHj0JCTzqGzpNlRhVKR 0 JoL8AVJ0cTDhyX9zmWrxacvak G9wOyc+NwzciEyuHAN2YKg4X1 CnBhn0QINmsDgyPO3pnCNcKGl u Sh2soKivdGgpSG4mQWTsudvah 970HcMqr6myBDFkvWHaMTycIR T5W20vb8E2VWZgESVrAYY2tJB 4 wP2msSwkbafbzFHbnLewlzGob BqhPKphURorZ091OOBgwJalXd SfNFc5X4ZzMbj4ZEAtlGjcSB8 n sXQkHZaoFg0mhMszuCinNK6bC SHhwhegc530CvBbz3jjSIPlkU ZaEVjjAVC6I29ay8J5WIZeJJF w SCP7zAV1fV3umQlnbdruoDKnt CxhkoJrrWygWWgdPGqxE778PA AycTglYiJadQs8P6EvAwr2ZKE z bWyqAW9yrGPyTZiyBo7qgMoud JlyGH3yJDWzcoutz713PyFrv1 jkIQAzfEZeINpkMVE4K10wk2M 6 IDRsXSVxOLA4fII4bS7qqEzfv jogbGVmdDsgdmVydGljYWwtYW plU091BQJpqQwpAdOovBbktzP g SIypFIi9G6IsEurctDI+PC90Y XKgBR97yRTfiJOva2maiUe5Ep CpYDXzZBJ8dHorECthf4JrURY t C39yqFHvd4E7WRSuhMtbmWOiF tKtlYR4yA5jOAeyxsnxa7seis elOlvzv1rbjd05gL38P13bDOm p YAPnNKGyTRBjRJIcbFjuoc4yf G9wIi8+EPUvmHA0kSB7sV3kLB JrOfA1BZzjE874StElwPVcGss j w4pgh1muaPp9PoV6BJVgmdPvr PmfKAJ7k5PxQj34G15aWOmcEB HcIDEpAXBmBOHxmLxmem3tmM7 w Ii8+UQIjwGV2fUO4zG9cWvDoD aO6QSocG495MaSrzRGqHdbzR1 1gS0FhpCF+PBVzVmy9UFFjhMz s TI1umRMcSGhnHm8gRZQ1ZgXwE pQqXYvfD0GfBIEtnwhqdhmyvM Z6PDHzZMInkU78Yj5bfVqwOQS w yWWInU1bnxybz1hovjuiOeXuR PDqWMo1WFs0JPQukAqcHbRyFD X4BlO8OAL8pRBkvE7ohPieqik g gW3fD4HsBONwpqpvPl46wO7kZ oJmLlH1LZuaPpl+RklTSCwgSk FNRVMgVzwvdGQ+CNDvZIG8gNg l NXijVUZxpU2aMDSbX3y2EjKlN aE0ZPvqI0MmRLPqfocuJr13oR 1sSpCgUtK6IHffF0KcpaQ0RZX w kVIfBJuyDHP8R64mr0A2JNWbH YQjBPZ2xKR0nP5yuZcmnpwcrV MhuHabvdUwdNiiBDixDRqkK25 6 WEPcyFghUsSgRiD1TnA3NfN7J 1CfRhi1QPQsoXcoPN9wjTVnML alXp4mvDthdYyoUG9wHZKvjek w YTMbeM1lKYNiuIPgsUwqZS3rB LWwqbdkk373HwBvTYK2NTNqzE InD2JfoY7lEjZwSGVwOIDuH0B l fYZcDHbmK531GVfrXxC6KFPwt yJaQ5KoLIUrmAhmPbJ2o6V3Bx 44OCBZZWFyczwvdGQ+PHRkIHN 0 mKatBLfsCVPsyD4oDRSlN8c3R xBxFzU1JFrqB4XxKMEjbhsqMx 61pZ8fVdVcLrW9GZqxM8QezaG 6 ODKqkUQjHMovFZF6W49nd2J2Z HGtDUBiRDK6pOZ4mI0cqJlfnm ogbGVmdDsgdmVydGljYWwtYWx p J260DJVifQjlLr2XOIL5U7PeM rq1IRYtyEwmTS3myYAyVZddLy 8jpNxzxXcwVD1kTTWsvlgjGYS k yA7xJEIfjOGkhIviCS1oFIWod oflq603XcWiFWW4QNKbiNVxC3 HbaB3aDqGqNGFvYSBjQ5DglWP t QUujT328GXuoDdD4OYOxvgKtM 8IjWSFghUpvRsI4c4I4Ml7PQI wvdGQ+BS85yl71H9AoZxreYxi 0 IZDaQZR7cFD3fJ5pECJrTEthr 1R1cWL5J9OefzLljd3sg7ahUX QhBTvqY24riADld3B7MRBvrIO 5 UAIdkWbiZnBmlY61Twh+PGNvb Rons6HwGfinw2rci0ybkVd5Fy DuWYLxvlGwqKluGOS3a1CaXy5 8 F56gSGpaLMHcXEMjJWMxYAPii Mxifm2ynS9zVz3+AKEbtCZ5gY F5dO4eYfDqMqG6XKbvP200GkU v yBGhKkxmu1ihl9rpkWi4XkAaW EEcvqTtuAsiSBK2m8PpQz98X6 ZdmDjvf1CrXyw7oc47rCBgb1S 5 uEL0Y0IcSAIddgetmENjhWgfA P7sNOShewwfDPCvmB4bQAOdR9 o4BfVbYmX4VTueX6TquxJ3JEX v qBHgMBSmcERMpJ4fyjsda0bnb xucWzGqASRpYVu0AGa7WALtbA usEfFwYRW7RjI9NIU6kZVkfS7 h tNvfdreprW0aMjn+MFv9c9hpv OKxZC1vsJD4UR04JI95gBCof6 T7pIY3X1FtGVJpodxkiubjiDY 6 OSItMQCedK92Kb3hsGtaVe6bZ OUnPHI1BRSviISyY6WlrM6pXm DvKNKcPHJcV8JcmZWrGUzfF38 6 MDizSzO2RLBrhdLjN5QaEQPfn SblDfB5q5M0Bs7FXD50VY53VN 01gNOre8S4qGR3V2SpVHIouog t hxmubNO1UCDwNCLcqQ01It1fj EmiRw0aKLRgMJX4AIFvhFWxQ0 EhcX8oCmElJGUyCSExG9WgiUW t XBfgR010FWqvSgL3DVByuvNdM 8CwRFEiyJcbSlT5p0N1Aq7VZh 66RK68GC38jZAon0M4xUB5F1W h VNButibfzhyxwEG6GTUhDGOly N87Cd9dwUdjOr1yWLAtCGU6EO TurNGrL0VlzM6lBtOyHUMeJBY w W3OreCXeZBxxF893PZzdLvJ7E TCbxtPpC2KyDXZyfZncTgP0u0 N5Yq3CWDiyaqh5K8TlOwxigCJ + BJ72CLAiSB76cIOwfDUlb6fse Hh5EyMjIHKiXPY2yJfuSExpt9 CdIMToF27hwHMpa6H3LRPrnHe h cHN (more content not included)... [facility] Coding Summaryon 08-29-2024 Coding Summary HTMLBase 64 OefypiuoJAe4gTm+PGhlYWQ+P O5UEADbQ89xmFXqxI0dD3CRIW lOSywgQVBQTElOSyIgbmFtZT1 kaXNjZXJu IC8+ZI0pDDNuHyjykIDzs4C4t LH0A55vek3oBFsjdTX7QQKoOq Bjvvdvg6npeVy3UHlmGxrvSyH t HKEepZ42TVH1jS09Hs76bMMlv RJol2pqzYm3YhAbIWByDME5fQ hpCJglt7SwUEOmL28qfPLnn6N 6 SAHmtFfykAKaRqAdtTQ0pG7nF Qmubqjry8vorkmhPhu3qa90bB Rkq1V0nFX5X1CflxT0WHSmzVJ g HsqnkDUZfE4yncalb2iougaaK zEiUQXdAVw2DNy2KNXpwUosOc GpYY35MDP8DPNiqtMbX3WdPJJ s sAykGuE5b5D3Fd7CK2OEPipuF 1VNTUFSWTwvdGQ+FK93jo18U8 QyCzvsBwo7ZEEoKQW0rWF6kV3 n IDJvLEkbi5D4hBF6P4HimiAfm z4hc9yaSQBnQTesQ34mmCEjn9 J5SYPbnCJ1WFImxCtmPfShgR4 3 Oyc+HTXjwSnpi4WiLgexp3mqq 2zzxAm8GtwvNUJztdCimBiiQR W8u0MxDm9aEYBehWP2aWQ2sW3 i QpRcAsA1OXbeD412TsWrlAWqP cxwT66oU7PwsEC+NWLaOyo1JA ShxHwsXG0hO6HhKTQlhaxcfBY m nHpcRI9mGAIlqnulUTOpvK4cN UCoB0w7HuBsJwI2JXtdJ0GgIV CubeviRy79fD1eRcWpClR6GEm u G0UbgcB3BZGkmTBeMZqmTQR7Q 53lb3J1KUHqCFFtESX4nYF3xZ 1hbGlnbjogbGVmdDsgdmVydGl j WQsgQJlxB082JVRgdNixBiCaR GluZyBEYXRlOiAgMDMvMTcvMj AyNTwvdGQ+JHDaSNU9uVurLGQ n tOKsXXqhZy9yySrhtNupSW5gU CXurlghXTGyzR8rSFQoqEIkaX kqRI6zMTFguyvnq288SeVwYXC 0 NNTehZUbS9WflS1uBnKbNTZoP NGmM0AgqCSzCUpbE240LGkvNh D7MFAvrzBcW4UiUDAwiXfjTpG 0 d4F0Uu8Mc4KulidxG7ZowDYyE pHoChieLAe6O6QvBlnwxDZ+PC 19YZFeLJ18KNr1YJK8zMedGFj i ACBjW2AmjH1cAoArRRLvQZDfS yc+PHRhYmxlIHdpZHRoPScxMD KqBuOexAzsRI7bEp2rZLZqOHO v wHkncLBsYdThe6zkGMJbOIbcA L6jwFzbH8LibTZ6SZLwh7a8Pg 34Y04dK7OxgCY+JEAkcLG8pCB 0 fS8zBtBdLoK8XQlaZ620CkEvw JPlTdqgc8exv2yusRu5JgK2GG IgqgHtnTtbXXC1y7JqKy42U90 s IHdpZHRoPSIxNSUiIHZhbGlnb y5ksW6jMm4+TNBltZE4lSA6yQ 7kKqNaKqV1DRqzA348WuFjtAO v Kpguy1osb4ukfBb1SlQfWCGss dUsnQijTYW9i1VkYr05V5VmaP fpx0BoXez2hy58tNTmu3I9sCS 9 Z5UmPPHwkurtjRXhrOdkTM5hE FSzabpsKTVxtP9zFWQbG1v8Gd KnWhW9WOvwL8VvmsW1VXQvzED g NRZveHPAwT2julieb3cijvmaL lCwVKGsHKw6MEj7UDNeoXfxIp PlOXW7RpE2JOO4fGEgtE3nxWz n vqqpfD8uTxl+JFJ0aBLusGXFW P4oDoccvBM+LMZcLFQ6dWvnVH ypCFHhnM4gCSMaL6g6OmElIhI 1 ZMzmP2SvibV1CEBbzYIoSIWyc DEPcA0uubply6riopmvTvRiDB CfZMy5USa8QANsuRasKvSoVST 0 QiB8YBA2nQOxmZ2bvGkxsqhww G9wOyc+FkigmGtiFNJ9YLc5U4 GmEtp8EKTmmDckJI3grFAwLGa u Re3liKnwnCspLI7dJQFaoizqr 008YxHgx5dtUKWnnTBnLPfzCP G7S16jj5J3KJEcXYBdXNT9qVS 4 oV4okCdwmjttqVIcuCzkquQyc MnxCJbwZBjrL538GEGrtMxxHy VnYCm5S5PhZzw5MZSdcTucUR0 n dUIxMAxeXr6glJrdrHitWO3hE EIslvulx309MaAac8qvOJUfcL OaRVvlHXN3F81wj9U3FGBkNPT w SXR0fXR0jN0twHhlouegzKRdc UhhqjSnsShiKIcqOIbeH645TR JzlHwpOdMaxHu5S4PsUbj7FLM z sZzkIP5pqCHpTNanXz7toHzwm KjxKH5qQUCmhzahz766GqTtl8 lhWNAngQEoDZymTKQ2S00go5H 6 OXHkTPXnDJR6oTV6jE9qyCdth jogbGVmdDsgdmVydGljYWwtYW oxO422VKYnwRqnEsPrlPhwnoV g TAzuJOq6X1YiIdqdfMO+PC90Y SOpTL41fETqtVFqd0ivzDq1In XxEWNjQKN6yAarUUmir0FxKNJ t V63tbUHhj3F9OQMpdSsveCPuE hLgkRQ5nO7oAEkthdwtt0gecw vcKesdd8tvbn18dF34F94hNGq p AZSpVXNnNDLjFUHqbFvhqf6xs G9wIi8+ETBmmXJ5jBE2pY2cUW MyWgD4WUbmO791ZrNxnJCtRjb j a1ixv2fzaBm8YmS2MTBzzyJzq UviENI8w2ZhIf36L14lBBcuFZ YnQWKsEAAmQCRepKdveh0kiH9 w Ii8+PJMtqRA8lAH3lS3bTjAvN hE4FLjhV922NlWpjMSeUbsyQ7 7bG6XvnWG+SDUtPnv4CEGjoTl s AY3itXUjXHhiBo3pZAX7EoPrF sDwSEvyM0FjWJEnpujkndskxG R9GSAvESVoqX37Ry3cvSrlYJE w qOKAjA3hcedwr5lvhtokNzWaP JBySWc8VKz1LNXkdOinHyXxEZ Z5GfJ5UCV5oTUxmZ9dhQuxrsp g rM6qU6XwFLGfoasbSy59bR8sY iDsIoX2ABcgMzb+RklTSCwgSk FNRVMgVzwvdGQ+LYCbVRT7hFy l MEfoAKQefS9pLWBrT9a1UnUjV mR5LXetQ5ZsEGIuiwaiBj11cI 0rRsYaXdD7FLbiX4YppyX7TTR w uUZrZArzRZZ3A76ky2L4VQOvA NAfMSS9pGX9kG2hvVzzvgbnbN MahRcnhfOxvKbpRDylWDwxM40 6 RBHvqPncEyFgJzC6KrN7HoK8T 5AyIxp9TEGcyXtuFG7soKAkFU zwKq3mmBaewHzkKM7vDIUpylf w VRAprZ1nVHQjpRRukVnqWW0dB AVqqzuyo017ClOvFGL3YIZckU AlJ3EecW2gTsXdGWJqJBLwW2I l uGIeKXjdW058ETyjYaP0BGHym tFwV7KnXHPioPxbEyF4h9A3Wn 44OCBZZWFyczwvdGQ+PHRkIHN 0 sYspLHouIYKbjG7yZDUyP2b5S xMaJnS2VIimC2WdPUCylwrcAx 57sV6mOxEfBzP4XSkpW2VskiQ 6 CSLtbGVyLYpxZVH9K27ug0K4H YRuSOMpSFR9eTP6bB7dvVzoii ogbGVmdDsgdmVydGljYWwtYWx p A251MVTfbXryIo2WJQD9K8OxK wy0MVCpxIrxMD1lwYLxCSzpGx 7zuTdwiSswNF5jIVTgqzqvSUA k jU3mERWxdEZdwGodHB6dOGMph zvgg589PeNhFOG5LXUefRPcO0 OfsS4oQbClJFLtXCGqP0FezGL t GEfzE891QNmcUvJ1LGKigfDiO 6JwWCJyzVwwBeV6z4O1Kz2UAU wvdGQ+IQ52xc49Y8NmApsaWps 0 GXPxXFD1mXT6nD8bMATgDVevt 8T2wXX7B1JdreYfev1ds5ekMS AqRLlfW63pxPBfg2R3LPActEG 5 WJSifVpdOlCuhP51Unk+PGNvb Uecg9WnHncdu6iyk4vihPi3Jf MhTTSwcsCfaLnpCVT4y4BoCp6 8 O07gUNjpCDYbNLFaIXAnFYMoa Qtseg5wsH4zPl7+FILkaEH8rW N1uT2cEzCqZpC7VJlhK046ZlC v kJZwJwvrg7kcf2qnoRf8UuZoQ ZPdkrQtdKozUPD3m2NuMf96W4 TztUscv6EuFjj0rx31dVWad0T 5 yUY9V9EiAPHkhpetqEQhhOmkB N9rMBIufhgsGUKwlM6mZFWmU2 w0HuBtBjB2OKfeP4SqylV8WVC v aSBxWHCzrOVTyT1enmnqv3dtm qavUiYfLOPlUGa9XGx0QOYbiB jeCwNyJRF9QxR3XNH7zNHvaU9 h gLezjwmafU0sSqm+YDk4n7edk YTqYR5zmHL4FB01KB90pLUgk2 L0wQI5K4NvFZFnktpvkkgurED 6 ZWWuVFPxnE11Vx0hcYyvVb6mI XTlSAZ0DITqjUAoK7GmmI2gBl LqBHWpYPRhH1YksUCtBYscQ70 6 SKlqIiY4BLMfprXvX7NuDITbw YnvSfX1i9V3Qc5KYI91SN02XG 30pFMje3C4zZY3P0VtBDWzuxm t thwecTL8AEHmHUKmaS82Fr8mq EahTv5jQRMdVBU0PZDbbNYvN3 MuoI4oBnMvFJAzNMOxS9EnvDC t HSqvL444SIgzMrZ2YWHmciUfT 4AtIXHdkTfiIwV3o2B4Vd0LMw 57RZ90IK20lPVdc6H5mOE8N4P h ECMnxxgvtjgzcEH4LPZhKHZeh G46Dc7dhNbhQi7aWXPbETT3HA MyiQJiP1JseR1kMxReASDvMEX w F2MowEKiZIpiZ229LHhbLoU4S PRbrkLuY8FpKTEtvSbbNoY4t1 H8Ak7IXJejdfm5Q6VgPzjkiMK + GB41CLSbWB04eARodBMdi6thl Io8HjBkRNLrOBE8zTwfCBiko1 RuZQHpM96zkBNgs3Z9QMBonLn h cHN (more content not included)... [facility] Coding Summaryon 08-22-2024 Coding Summary HTMLBase 64 LzukelpxJEy7aOg+PGhlYWQ+P Q9LDYBpH29ohNLqoR1tU7SRIK lOSywgQVBQTElOSyIgbmFtZT1 kaXNjZXJu IC8+HV2bIVSqGsnihEAoq6D8y SO7Q27vpd2wQEmekSL1XFVePv Yzlktwb4dirRp4QDtcXoxeQmZ t NPUqhB03JLJ6jB22Rd98lTSjn TLkq2gobDq0JuAiUECzVCK6tG ocMWlhk5YuLBUsC27dcIZhz9G 6 KFSrrCvruQFvInEmcAL5sG3yC Rlbgywtk5qyrevqSao2ns41eD Egq5L4qQH3A7KvnbY5PHMnkUC g RqkmbGNLdP7dwfjmy2oioiwbH rSbLMVeEVu4LXd7VQMwsZshWn MjXQ79OAC9OTCrthDwK0JiPRN s cDpcBuH2j0B1Vd2HT6JPVnglP 1VNTUFSWTwvdGQ+IJ16pa58U6 ZrRoqbSxq5SCXbOZB3wKR8wR4 n WOJmQJass9W5xKC5B4OohePeb t5lz6jkMORtDJehD09cvWXie2 L5TBTqhGA4IGInqZxnHwZtfK9 3 Oyc+BYCgfSqag2RrNnsly0emn 5woaYn3WzrtQRTrzgGodKxoSB R9a2CxLi1sQMLswFB0sTV8hW3 i BkDmVwR7LCknL948CnBrvETlE twrQ86kQ7WicKI+TJAfLka0VH WizYrbVQ2aE7MwWKJeucmidLX m lNumYO0zCLNgugfiPKMhxD7iC UMeY6y6EyEkCkN1GPriR1TtOF EqqsonVc37uX9yKtWdIrZ6LKf u D6NwhhU3XXSusXYvKFwuYMH1B 15oj9J8QPNoEQXqESG1cOB4yA 1hbGlnbjogbGVmdDsgdmVydGl j ZClhGXiyW479AMNnwQxlYgEaX GluZyBEYXRlOiAgMDMvMTAvMj AyNTwvdGQ+NDFgQTJ0rAhcPJA n kPDpFZqfOi6hlXzezNueGU4jF WLhabpdRDBnjQ6eHSPcvPYydP faYF9dZEFpnnjhq173DyPeNGS 0 ONAneABsQ7SxbK8pHxHdIYFvJ TQwD2RrsNTtMCdmJ746IGocBu N9ICYliwFeR8IsHOKneAelDhT 0 x9G3Mv2Pt8UwcapbJ5GidNEnN iYrIfrkDOj5U9OjXugenCV+PC 15KXIcWJ41XPe0XFK5xRxlIPa i ZCZzG3YuaJ3mNlMgNFNxYLPwV yc+PHRhYmxlIHdpZHRoPScxMD VlZeFpxIyyZX2zNs5uNQHxONC v yMzdyWQuMiIlu5vjSBYmOLysO Q7phZpuJ6JoxZM8SDFcj4z9Jg 93L45vL8AxgNX+KQYxyMU8lYA 0 eB4rSwOvElM2PJzfU745IuPbe EGyOgeve9qxd1gvzWc5WhM1HT PkxqFjzWqzTEK6v0LiPc96H43 s IHdpZHRoPSIxNSUiIHZhbGlnb k4uqG1nFd0+LJNzkPT2rIT1cH 7tCmOcNfW4DOdnH662LkAurED v Rrweb1vme3wpaUa8JqUoXDNzu qNqwMvqGWV3n8BoXk09B9OqqA vaw8FlWmt6wn10vRMpv6O6eOG 9 W3XpUMBcbcczvCHuaCdrSD0uY WOwhmxaJIOqnY6mUFRjK4s8Oc LvFhM7HNugD1SuldN6OGRhmSM g FMLabRRTgF8pphehc6nlkrglQ kRcANIyRYd1TKx2BMVbhRibXe JvVCX6EuV1ZWB0nTBciD1zsHu n spmygY4sWph+SHH7mGPztRMVR X6tMflzfJR+GLCyAQD8eVkeGB fqKVPleW9zZTNnI0y4HvZlSpY 1 TYwcY8VngoB5RZTovFWgTNWwt MGUrD1pyqhac7yolhlvPbXqEP OyJZg8CUz6BKTdtJtuGfXwOJA 0 ZqM4OQA1sDIqoX5weCesmvdyn G9wOyc+QlvuoTefGCJ1DUw4T9 TjBfm4MIXjoQzwIQ7ccZBfKRi u Az9luZyyyGymQJ9cEFTndywip 485IgPaz5fkSIMdoUTnUGqePD S2K66te0H0LROtNJGhWGJ3nRP 4 hC6ovXnygpgiiPFdmCoptmVdw JblPYqiULltT960ZRDikOszLd JsZWy5O7TfPly0XDBnyTcmSW0 n yFYmSXhwPb2qpXgifYjsNE8iP XYijmpjj456RyEac9juPLSnmJ RlFOtzGKI7D30ov0B6ILOnKTQ w UNW8rQH9xV1caLhdjudjmJHzb BjphcYjxYphPFtoOOugD748JN WboNajSdYgkJr3O8ZuDkw4BUQ z lIhaEZ8jjYXsBInhNc4jyOxnp KhyTW6bGHOotlzzx497WyDew1 nnBCOeoBStYNsiSCT6Q21xb9O 6 LZIvLKArWXI6fKY7cU3qrVuuv jogbGVmdDsgdmVydGljYWwtYW lhP879YYVlzRnnRcWhoXcbrsI g BGosYSg1Z4RfLgomqJI+PC90Y FWuRX99nYRqeKQga9xluIq1Qg PrQWBfYLZ5kGabDRgvo2OxXRC t V05bxNVuz4Y2THVwkXnodHMzN wPypAU6uM0mUYpsxcpng4xces eoVdyqz4pxmx26jF97H20pMZj p NOBkOGFcJKAjXTErrPthyi5si G9wIi8+AHQtnCD1mJJ8aY3bPB LzBwJ1POczV469ZsRcyEPwVxn j n5rff6puyXd7CtE4CYWsdtUcj FwnCSL9p5CrHy72M49vCRrmPM NhARWoUPYfKLOgaZtonq8ouY9 w Ii8+VOPexGS2iFQ9vT1lPeNwR cJ0YJxkP105YhVwjXRhKjavE2 9yA7OaePQ+WWDgUkc2VNSebCs s UZ6gvJUfYPkiSh9lGOO0GnVkY sCzMSmcN3XpDXFiqgzeykobzA L2WYZzWXDloJ13Mk9qzLoiAHI w rQMMfG1pkrpql1ltufdgHpTnR PClIAk5KPi9OJIjyPjhCnXbRW E0EiN3JZP9vCHmwX6nqHkjafs g iI1vM3GuXSYyfrmtIt02vA1uM aVaAsN0PSlaGob+RklTSCwgSk FNRVMgVzwvdGQ+JWJhGKR9rUs l QGlqIWGwwI2vYYIvL1d2SaNrW zZ6CCeqQ9YeZATkrylqIe13mY 1nYtBnQrB6WZumT8JojoP7WVK w dBKpJNbfAZZ2W63gi5L8DTIkP ZRdURF9gKX2aR8gdKxofnlhgR XqtHumekTyzDnrBHiiYRypA06 6 CRXzsDglDhNvSjZ8YzA5GkD6J 6MtHbf8EVYohEswJG0haGHhYK ehJn1dhLsckBopKJ2tZEOgspj w OUWusH4cGDCdcADwdCroCW6gK RIffngag361AiAwJLY2EXPbtH NeW8RhlG7oLuFeGPKzVMQxU0K l vWAzWVsmT627OPlhVrM7CHKnn lEbZ6MzAWKdqBwyPtB1o0C9Lp 44OCBZZWFyczwvdGQ+PHRkIHN 0 uTlvTMnzLDHkvU0tYKCdP5o5T mNvPrX2YInlC3AsNHBxkxctPh 49qD0yXgIwHkT0NNazX9LbvkL 6 YPBewFDoLKitVKY2G84wq0Q0N MOuPSBlNOV0lCB6oG3axDzjce ogbGVmdDsgdmVydGljYWwtYWx p X784TDAxqGedDx6TLQY3A0AuT hh3JSHscMkiUX2moWRxICxuDj 8xfBlmaOlbQN0lKBDrjqdvPJN k yP7oZKLsvOGwyHttNN4mIVEah mlie661JhDtRXO5ROHcrVWqC4 ZhtY2lFxUxWEQsTXCuV4BwfKC t IIfcB988OXwdCoU1GFLekySqM 8PwLPHayUvfNvI7p8L9Bx1SAK wvdGQ+BN05ib22T8CxPgijFcf 0 RJKeBDN0iII8yR1uELDjVJuii 2K9jES4M4TyvuQrnm6ua3jwLF OcZCbpK66bfKXje8J5JKLvsGA 5 SLMpxJldGmAijS57Cuu+PGNvb Dlbe1OeAuxdv2qbu2okgPi2Gh OfVPMwivLhfLmaTDX8w7MqLd1 8 M55oUDfaAKUrLVNwVOPmROWqs Obmai5ljI6gXs0+GZTsyPU2vA P3xP4iIeJqRzI6CLkdG677FeQ v iFVvOsxrw0dsf2kfgUj0FkYrH HQyxmPdfSngTDV2v6ZuSk34K8 XrxRend6FxElw6wi83gRAvd0Z 5 zEN5Y1SaQBXpdzfdaOPcsIrpL T2gJEHovxpkCZWosZ4cZMJtN3 i5FtXzDeI7OTquW1HtbqH2EWE v hCBnFTAnbTAKqR6otfaey3agw ywnBfNgRYCiYUy6FSf0GIVrpY niAxEgHFJ5McM1DJS4dHBtaN5 h cJnfhdjlvD4aUdr+XKk4a7zfx SUnDR8xrKQ7VE98IZ37iHPjm4 R8cVF0Q0CfLXCasqunukjlgFL 6 KESfCTHvyG89Wy8ryXmvIg1oY VWmQCB9EQCprSRrM8ElxL5kCx SrIOZnUQKlS1YpkNXdONfvW23 6 SCjxXgI7RRZjzfQnP0NaIXIrg YcuPpA2p1W3Hi5YIP74WZ14LM 05hKImu2F3dBZ6H0OjPFUmewb t xlbpwWD6LQInUFTirS91Fp0cn AoiTt5fNHTdGPE4JYOgaIOpA3 DqxA6yBlVlUDTwLCAmA3EybDD t SMwsN392CDhhSmW1HNGlixWzU 8RmNXRrcLnrHhA1v1R5Yx6OXv 70CV33PB47qWNoe0Y6eQB9N9I h PLUxijnvdzmdqBW0SMNbUVMis U01Cy9lbGbxVe8sJZPhCVJ1ZZ ScoPKyK6ZjwU9lJmJeOMMdPBU w H2RryWOsPVpqJ883KYhwSuF3J TVuhoMzY9WaGTXdjBowHqK2j7 F7Ii3JDOgsznf9U7OdDlpmfHD + NE82JFAyTY03nFZxgGMwo9iwi Ej5YvOnMQDkUIZ6aOvpSAiyo1 BsEFEoN81gmMRxl1P2BXBhsDg h cHN (more content not included)... Normal [facility]roVys[facility] Fish and Urine Cyt o ([facility])on 08-16-2024 UVFISH & UC Diagnosis Info Invalid Interpretation Code [facility] Comment on above: Result Comment: A:Ur ine,Urine:Voided [...] with cytology and cystoscopy results. * CPT: 49514, 41661. 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 Electronically signed by : on: 08/16/2024 13:39:45 Performed By: #### 1 [id number] #### [address] [address] Consent Formson 08-09-2024 Consent Forms [phone] [id number] FF Normal [facility] Coding Summaryon 08-08-2024 Coding Summary HTMLBase 64 OgstyulgTIk1qQh+PGhlYWQ+P K9GOFJrS24enZIpmN9eC9DRIC lOSywgQVBQTElOSyIgbmFtZT1 kaXNjZXJu IC8+ZD2mBIWnVfvycINjs5K5c JD9M48jxp0bWCnevDV9MKUpSh Rksddcx8dsyIn2YQjjGvjfNdU t HFXjcP03GEN3qQ24Yo10eFPnh HFnx3qatYo1HiUjMGQcKGC9qT esVOkee1CzHOFfA39lrDLor0V 6 QWZyoVmcoMOqOlIjqVV3yK5yN Waxpfxgm6dwltegCqd0ju97fX Yzs8V1hMF5K6PtqwS6PHHsrQT g RpfyfBOVoK4aqmllx9lqjykrR sOeSUSdZHx5UYm9WIKmqDbyTy YdRS42CUW8MVCnqqYdM8KwHOD s kKfzSrI7t5E0Kg4VX6NTKnjpA 1VNTUFSWTwvdGQ+PR93yg46N7 MwMhjpIdu5PHGkXDU1lNH5kH8 n YLWcTGpea4T0fCE6R8UnjkMfg h4bd2lhAHQgQBabN21ymJBke9 M7IBIovWR2HZIwrXnbAgLcdN9 3 Oyc+KPCoyRpyo9BaTdjyn4vri 1qobXq4QauiNIJcvhDcmNmnQL F1r7WlKv7pVWAapVX1yYC3xH2 i IjOcSzW6JLxvJ151WiIvyYCvT zejZ84mT0FgyFQ+GFKiQpa4UZ TmfYtcHG1iQ9MzZATbnturmSV m fLrnJR9uTIUydtlwGCQwoL0pD HOaM5x8JhXgUaJ9GImjF2MqFJ PfjhcsNk09mB3lDqEsAnU0MPo u Y0CjeyO1WMNbzKOtJGoySIL5Y 01jc1N8SDKbMHEtNEA3uES6fF 1hbGlnbjogbGVmdDsgdmVydGl j NJbeQNviM417INNqfVznQkQsM GluZyBEYXRlOiAgMDIvMjQvMj AyNTwvdGQ+DUHwXKN3mZxhLNE n aLMwCNgfQj4uvDffyKzdVU1xZ VQxrnjlLMBysY9gMPPavHAdxS ekPB6aFUCvwpcga832WkKlGZA 0 BOBfhXOkX2HvgO9aUaXaHETjG MSbR7MrdLBrDDpsI979TCmfVl K2OAYaigIsU7GbAJKcnYilXnS 0 z6H9Ps3Bi8UjwiehX8YhrTEqL dPaLzrkIJm8L2XzEgwnsMB+PC 69HLSnMR62XEp4KUI1dRksENo i VFWlH5BvlW1ePeInNFHqMLJwX yc+PHRhYmxlIHdpZHRoPScxMD OoYyVhhEjgQA2fHf2vDGBsRGL v fXdqzOUcDlZbs5jtXUCrERpbG P9jmSqmH6XyxEH5NRHqx3t2Wl 74V45xB2DcbVM+KNNmqIU4lGQ 0 vH3yPqCvVoQ9JYhdQ958OjPqu SIbBucsh2ldd8uqeFb2TjC0EY CwpnPbeDxmFDL9i3NqRy51P04 s IHdpZHRoPSIxNSUiIHZhbGlnb s2eyH0nUr3+CXRjkBM1dPC2uE 9bIeVcXiR9IHwkY537BuFbyLA v Ijslj3kit4qxlJo9BbWgIBMpg gPbyPfnVLV0l7WxAm35L5IxfR tsb1SfMgk2yt01pANlh3W2tYW 9 T1LvYIYsagmsuPIbzHedLK6rL KYcpfyfOEAroR4qOXGaF1u9Kx YcLiF4UNamJ5HtbxI3IRYtzUF g GQAlaWGYyU8iehwqo1rlvhdcP gYqTEHwAVa5YRa5YNFogDpwJj CdEAR0QkG3WDR6oOXfzA4ptYz n yxyenI4cZhq+CCR0kWXhrKQQU T3eTymozIP+ZAOdCFK2eAyaPZ jhQCRrvY3cBSXaI5l2KsGgZuR 1 NLcuJ8YdfhL7NUHsjDLiTUVuv TXJnP7kplmtq4ezwfpaVqFpWD IlPMx0REt1TQAykNwlMsGtXJH 0 PeP4BPP5nBIkbK4aaVnzfyrva G9wOyc+WdytjLxxCJU6ZVz4Z2 ExHwv9PVTzvRxmKI3ioVJwUDt u Um4ahBhcwZcwHN8lURAuwrerf 207NyVzg0dcMFOorPAiPIjcMD J3A51ax4O7OUHsEMHgQEH2eJH 4 rU8dpRwlsdmjvZEwgTndyrCqm YuuXDobOXouR516DBSacTkwUm MzKZr8W1YaPiq2KLBagHczVU9 n xDVqJHldVt6lxZnsiOtsQL0aG ZIitbosv941KcBhg8ftAGXsaI HkCLxkINC6W36hj0R9HQTjOYE w STK4jJM3tJ3yfOpiyiqahDToy JkzdeFwvBugITvgKUxmO945MX SlqBttZjFoyWz0M9OmLlg1PYH z jYfqOZ5aiAMlPOktGm1xjPpia DqgJB6cEMAblzpvg424NjOjp0 npXTIlhGKjQSptHND2K07lr8O 6 EGApMLYdDJH2iGF0xW6weFgnz jogbGVmdDsgdmVydGljYWwtYW mlW841KRJoxWuoQrOwaHfzriM g OXejKRg0K7MgFtpmsLL+PC90Y YUoIP42fNNxnUBcc6ewlXo8Xd XaHTKnUXV2eJxbEEvtp4VrDDK t R37jwOLns8H6UBZevQobmMJaU bKucVF4zR1dNMqjyhdzz4llwk qpNgesr5vcio36jF34S30jHWj p XVZgTKPbFMMqCBFjuSytfb9ci G9wIi8+CKWlnZO6tUZ5mX4cME AdIeR5BDfuW897UjOyzUOcErl j i0sob0bllRj5LhZ7OFTsvmBvw SkeYRG6y0BsHh76N71fTJkgXP VmBOPiSYCtWDVzvDrskv3dhJ4 w Ii8+MKGvuUR0cOW5cR5mEeVsN tS3WAnpQ232DzQwbNOiHsneN5 1sO4BslBT+QXEaErw1OVPxgAa s GW5oiLHcWMmoVn6gKHU1LuQgB bUyVOhyJ3WfFBPgppugevvjzM Z4LRHgCAZlmG42Dr4yuLfmGLJ w vQGKmR0tkyylt9xdeqhcKvCyJ WZeLRd3AJl7OEErpDluArJcPM J0FzM2CMQ2dUHnfR6plNagcxp g cS4tU3SbMNRpnsqtIx85vD7pG hMaBpF3OZmdSzt+RklTSCwgSk FNRVMgVzwvdGQ+DBRgDMP6vVw l DMytNZXycX0oCQXzA4t4UmMpI yK1KEkbW2XaNEPzxfsnGi44qB 9dBfGiGyA7WTauB9MsxqW9YLL w bTYoODqyFFJ3C42mo8W8PYUzG ITuAGQ8pBL4uE6cdVacwfmcaZ ZabAhlovBijRtlLHejQMrvU47 6 JQFedIdsOrKaFhV8GoB0JbN4W 8KdTku9FEScpFxtHK6yiSOwUY pzZb7ybJbnaFlgLL0dTCIznrw w UMBnzM0eOHWjqRZezMpjUZ4aL QQewscau880ZhJpQWP5DKKgvO UdT6TugE7mUdByWIHpVJHdK6B l tVXoAZlpZ556OEzoCbZ4BTGjs aFtB6PvNKRauOvjGhD3j5Y1Hx 44OCBZZWFyczwvdGQ+PHRkIHN 0 uFvaHAnmRCBvhP4hRZTzF6m1G yWsBwY1FWbjN0HiPBFwikmqJy 33oI7gGtDoPtJ5INwdD6AwjlU 6 ASPxrRHkRLqnELZ2D10gy8W1L ZDeODBqQVC3rGA5pS3wkUdatl ogbGVmdDsgdmVydGljYWwtYWx p T162EHUlkAlnMz7MTTA8T5XyO nx1OBAmxQjcMS5lkUQwTTjiKj 3ggMtsaDdfPF6zFQTferjdASD k sT1yFDAlpYQjdZwsJD9tUAOlz qqvw266VzUrFCH2GYPwiCQmI0 CgiJ0fSeJpAQJdKQPqU4ShuKF t OVzhG211GQznAuZ1AYIbhgXvS 9YbOOLroUpqZvX5m7U7Tl5GJZ wvdGQ+BR20ng81C6EtVztrIvk 0 CXNrDEJ3vUC0xB6mVXZzZThte 4T5tZL3I3AwzeMgbt5ye8hcZH CmUBupR72ifMWje3Z3SGUvfPB 5 IOOycMzyXkVzaH71Xty+PGNvb Kcur1NjRitfz2aih2qzlHn8Mm BdNVTvbdMbvZciWZV3e9FtCi4 8 S81wNCmtCMIuZMTsUDRdHOPpz Khptr1ucP6yOg8+TBVsyBO2zT F8qX2zGjWuShU7YJozV494SyP v wWJaXglyw1rwb9cwvEa9KmJfS XJxfaFzuOpzYGU4d9SeZl96H7 PdoGakt7ScMkf5oh85oNAis9J 5 lRM4S5CdYTLozmvrdYAsjPqiC L2vPIHwafzoDNXugT0oJHXdA1 d5GhStWjI4COknW7EragI7USE v uARbIPQyqMSBaG1sincma6jbs schLuJsCUFbZGu3MKi7HWPewA mqSlCdSRZ9NoJ4DMF3mDEryC9 h mYtdqhibiM2hGhd+JYd9h1pij ULrFX2pvBE4KM78YD77gGHlp4 W6cSW0F9RvHFIucqvcoarubAK 6 WSXcILJrmL90El5ljAvmPa7mT YXvLCV4IRXwfOUnW7KwbR9fTo LjYPMhVRXsU0FfnGYeFJssC85 6 CFrzBpK0UZLragImS8YqFEVex TeoCeY7a6F4Cx4GCI92BP53WT 97cLIrj8M5sJE2N8EmXFZbqdb t kkqkpRW1SMJwSVZgdH56Kw5rl UniNw5qJVCkJCI3KDLtdCIyH0 MkpY8qHiTiIRQzOUXsW0WdeMG t XSqkI747JQkyWiC7CFEklqUhG 2XqFABolRtwVpN2z3F0Jp9MQq 09NG27DW98yRZbw5E6mRE5K3Z h OQTdboiltcyuyQH4VTVfXIQyw L77Hx4odIquKu8iYVOmREU0ZM LciGRhO4ZikY5hLiAlUTNpISJ w O1NyuMLaTRotR823YXuiRaS3D DKjycOtV8MoFBMysCbcNyW5s7 D1Se1PCZrfxdx1L1ZeTphqzIE + CO95TDYgRR97cACxfNDlo6jgd Rp7PzBwVJCtNUI7gDtwGYkbx8 ZiNJJkB87aeIXsu3E2QKRbaXh h cHN (more content not included)... [facility] Fish and Urine Cyt o ([facility])on 08-08-2024 [facility] Method of Extraction Voided Normal [facility] Comment on above: Performed By: #### 1 [id number] #### [facility] [address] [place] [address] [facility] Number of Jars 1 Invalid Interpretation Code [facility] Comment on above: Performed By: #### 1 [id number] #### [facility] [address] [place] [address] [facility] Specimen Urine Normal [facility] Comment on above: Performed By: #### 1 [id number] #### [facility] [address] [place] [address] [facility] Type of Service Technical Only Normal [facility] Comment on above: Performed By: #### 1 [id number] #### [facility] [address] [place] [address] XR ABDOMEN 1Von 08-04-[address] [address] XRay Report Signed Patient: FANI CHUA MR#: [id number] : 1935 Acct:[id number] Age/Sex: 89 / M ADM Date: 08/03/24 Loc: RAD Attending Dr: Julio C Ramirez M.D. Ordering Physician: Julio C Ramirez M.D. Date of Service: 08/03/24 Procedure(s): XR abdomen 1V Accession Number(s): [id number] cc: Julio C Ramirez M.D.; MARÍA ANDERSON [place] [id number] Patient Name: FANI CHUA MRN: [id number] date: 1935 Sex: M Assigned Patient Location: RAD Current Patient Location: Accession/Order Number: [id number] Exam Date: 08/04/2024 10:46 Report Date: 08/04/2024 [...] Ramirez Jr., D.O.08/04/2024 10:47 AM Dictation Location: [place] [address] Electronically authenticated by: [id number] Y Date: 08/04/2024 10:47 Dictated By: Henry Ramirez M.D. Signed By: 08/04/24 1238 DD/ 1047 TD/TT: Executive Search Consultant: [facility] Radiology, Radiologselena jackson MD - 08/04/2024 [place] [address] XRay Report Signed Patient: FANI CHUA MR#: [id number] : 1935 Acct:[id number] Age/Sex: 89 / M ADM Date: 08/03/24 Loc: [facility] Attending Dr: Julio C Ramirez M.D. Ordering Physician: Julio C Ramirez M.D. Date of Service: 08/03/24 Procedure(s): XR abdomen 1V Accession Number(s): [id number] cc: Julio C Ramirez M.D.; MARÍA ANDERSON [address] [address] Patient Name: FANI CHUA MRN: [facility]:[id number] date: 1935 Sex: M Assigned Patient Location: [facility] Current Patient Location: Accession/Order Number: [id number] Exam Date: 08/04/2024 10:46 Report Date: 08/04/2024 [...] Ramirez Jr., D.O.08/04/2024 10:47 AM Dictation Location: [place] [address] Electronically authenticated by: [id number] Y Date: 08/04/2024 10:47 Dictated By: Henry Ramirez M.D. Signed By: 08/04/24 1238 DD/ 1047 TD/TT: Executive Search Consultant: [facility] Radiology Study observation (narrative) [facility] XR ABDOMEN 1VOrdered By: Reji iologdewayne Radiology on 08-04-2024 [facility] Work Phone: Coding Summaryon 07-22-2024 Coding Summary HTMLBase 64 VdxlpcedGZt0wUl+PGhlYWQ+P V9UKARpY76vmRTyvI0eB3YXLA lOSywgQVBQTElOSyIgbmFtZT1 kaXNjZXJu IC8+LR5rGJHjMlvuxGYgp9F1h ZL5Q86zau2hSZafgZN0AGQqLk Sjcekvs3uitYc9RNeaRzpuExL t JHUjbQ20EYY6rV68Wj16rQNgp KEih9wleQs4EvHpCXWfBPP6oI htONnop5KyNWVkE65dbGAar4G 6 FDVjeXyuhVHbNgAefUB6uC4rM Garldgzp7nkzktsFbm7rz20lH Llz3Z4fMX1C9HzppK9SMRrfWP g XhpocVBRqJ0yfejpk1rkqzrbV pDfTFMfKQj9OYy6OSAyoAaoHu TcMG67ASY9UOHqhmIqZ2WbFIH s sHrsSwG4u7C3Ia8RM4ZPDvacA 1VNTUFSWTwvdGQ+KJ64vn76H8 CiRqvuWbp8TQPtGZT0fCM9sP4 n PDOqYPtfy5D9mOJ6D8GiagMap z0nq4sxQIOaERzxA49koANmb0 R9WQBlcWA5IYTueVyeLxHgrE7 3 Oyc+XOQneIrky7JwSquqj8dqb 9pebHs2MzptEVXecaMptZirPF Y8g5ZlDa7zQVZpkHX8yTU3fX8 i HaGnYkY0WQbfT900BgQqwTLcT gdjH68xT9PkyHG+CUYoTis1OI YrfVeeEH7mP4OcVBKvdwljaAI m wSwbTT5fNENljaonDDUilK5pE QScO5z1YcIvQwV3BTesP3PeOC HvfacaVs98yJ7mBtRwVoH0MLl u X2OxmlD8OADijOScYWpgPIS0K 34re3S4HDKoOMAkVOH1nNP4xY 1hbGlnbjogbGVmdDsgdmVydGl j RIurIRncJ337SQIubBunPtPcV GluZyBEYXRlOiAgMDIvMDcvMj AyNTwvdGQ+WZXdJAK2gCnrURQ n lLXlWVnoSg0hpDwppIthZR4jG ZLjcexdCYOcyL5pKJFzmCPhxO kdIS7fPNAcakwnw449AmOcCKD 0 CNBvfFHbZ3YfmX3iOtQhDWIdP IJdS9WdoETlFIhqJ881XQxpHu V5YHTucxPoW1GmOBUfbYsoGcE 0 b7U9Zm1Jz2PcbrjqM5RjwAFbO qSlOxxxCMp6E5ChArpsbQE+PC 73NXTeFR53MUj0QEA9nQduFTo i XXRpX4ZmbN1qNuVyPPDkOZGdM yc+PHRhYmxlIHdpZHRoPScxMD MsSvSrjQguCJ1wDy7fFJFnYMH v pYyaoICzWtOwr3bnIFXwPWasX S8jxYfwG7DccRY5NGSnn1q4My 73T90nI2JrgQX+LFOorSB8hLP 0 vP0cGkBpXgZ8MGynY395XfMle TPkSbimt2xaa6fldFn6WzQ6OO KnwbAcmMkqWYJ7x4CgXk84H28 s IHdpZHRoPSIxNSUiIHZhbGlnb w2zvO9pHk5+PDPwhWK3xJZ7tX 1sToVbNfG0WDicK812HvIvoRG v Vglzk8gac0mejWa7CxOcHLLda pGtrHjhDTU5e0PxQr39Z0HokY yei7PtYkg4dn67gSPfn3S8bVZ 9 Q6PlOWJseeocbPLppCiyTM0mW KElshxtRHKwqT2oYZYuP3j4Jc UbZxC0JAoxJ9JswdX7CVEmnRL g JEZnqQSPnN0dvpzbn8npkdnqX bNzPFQoMDy1YEx2JIJprPbpFe OfQNK4LhS0WYW7hYEpeX6leYb n yavafQ9iKea+UFH6qKKwyHGUG D3gGewyvDC+XQXzYQW5iGmgJX maXMGxeM8uZSEmS7u6NjFtYvY 1 HXkrQ9LldaS4XCBmiSGkBEHbj GHBgX9vnbkzb5sjymhfOvAyVT KuYGu5TSi7XZSfgDrwLrUeBGV 0 JlD0PMG6sKTsbN7ukPkzccfoc G9wOyc+OxxkfCfoRKB1FVq9W2 UqPgb8FNNbfGadYA5gyZLgLXb u Dq9ozVnquLvwSF8aFCGlwjfiw 019WaKqr9edRAObfCDuRIguIA J0R43en4L9PSFlJWVjLID5uGJ 4 cT0zbSeljyhmyTZbdOwlacXza OgqKFznMOaeW075IZWgoGlvHo DdQIn3O1FtNla5ONPzhJzgAJ4 n oDOfLFsjKa5naHesbLvzGH5bE NHyexepc160FxFkb0sdOEOxaQ XbZXmcGRH5H65qn7W5CSShLYZ w MDM2hWU6xV2vpBdnnatkgKDxi ShbavJhzAxoOJhyTActV954YW ZipKumJxDrdZk2W0GgQqc0GQC z oXunWI0ujVUsHBreDw8vhHfmo YjqMA1dJETamplfd096PnGvt0 wnBHOhyRUeKWwvNYO4R12oe0N 6 KBNaUSRoROF8qRQ6gV8anTkkn jogbGVmdDsgdmVydGljYWwtYW luX210UNMsaNfuIeAwsBopsgQ g EQxdCUs1G6DfWstweLM+PC90Y VLvQH81bDXkhQUrd2cbuGx9Mk AgATSsLQP8pTmiDVion2BlOSB t V50eeAAlm0G9QKBahYhokKQhD kHagOX4zB6gWMycftylk6lhva ecGaxxy9dqzl50aA69N84gUBx p QVAvVVTvHNKxXLYguHrrjo2vo G9wIi8+FWIagGM0jIR7zY8wHF QjXpG0LOelP575TgSmrRJyJkf j w4ioc5abuEl5PqU5BHGyzkDwy QzyWRZ9e0XvTz95R11vOZzgQE IbSOXtNTGqVIFjeUvvmj5fuV2 w Ii8+MJNklBF6uVA4nB6yUaHlP lZ0DRptH906RiIteJWcXdvdC9 3rH4AupVR+IZQdQid8GENcdWd s YY8rhFVhNTglIy6rWDL8VnTtO hXrXYwaZ1JtRZGvgaayfdgynA T4ZEOuNAJjnG27Mu1kbAycEUD w tOODrS1sorkrp4lkxzeoQvNyZ JMnBZg8ZUz0KOBodRwdNyJlNL K8EnQ8OKC3xAYcmU9ouMrmdag g iI7bJ9MbZXWwtrwuSu52gM6eK gRdTjU5PYywNhv+RklTSCwgSk FNRVMgVzwvdGQ+PPPsTTO7tIn l WNruMJNqnX7cWFIhG1d1HgHeE pH2FSitY8ReEWMaxturCn21vT 3rJlFaNnW1RHbeQ5OigzW7FTF w bNOaIGpbTMM8S10bu6M4NVGlE LCvFEB9rMI3iY3umUvswhhhpH JqyPpkzxWkoRzqHYmzKFqeJ08 6 KNOgaLfwFhUlZnD5XoN3SwE6J 2GtRsp7NELwqSadAU0yiNQhPI lwAn4viVuvgZdrND0kFTVwaqc w KQHvzP9iPTXwtTWodSzkBG8oQ NRszynyr681FuFkFKJ4ZYAlnW TfH4NebG6mEoNzRDYmIAWjE2S l vXSvNEzrV660CGecXmR8VFQqw vWuF3DiRXCjdAhfGwX0z1E3Oz 44OCBZZWFyczwvdGQ+PHRkIHN 0 dUfaTWcdUSRkuP5sVBXvM8t5A oFeFpU1POoyY4VvEVKmmberQo 10kI3zNxYkXdG6HPpvT3FpliM 6 AZRjaYAwZZqpXAE8U20qs9H9N HJwUHJlCAF3bDF8rF2xnLodwp ogbGVmdDsgdmVydGljYWwtYWx p N366UXJaoKvxXz2NWOZ6A7XsC qa7GPZouLyiVS9bxOQhMYccPq 1qsTwagSupCZ1hGDAddkhzAVN k eL7uARHkeOBjlUihCU6xDHTpw yqot461IuIlAUW0GYBnmLBpU9 VchP7eAsHhRASiGWJnY3DnzRF t AZzrJ317HZiyQvC9ELUtibAzO 5CtCGXuqBuxFtC1n1L5Ox1XZP wvdGQ+FO37mg92V8QkOdtnYsn 0 IWGeLWW3mQI8sR4cYYTaWOcgk 3Q4rJM1S0UgweMoll7tu3irIS NbHRvlD26akTAml4F2EBChaVD 5 KQWizWobBuKwyE95Tph+PGNvb Pbdw4SiSztpv0lnu3hijTn0Lq JcQJRpivJkeMukPRA9h0DzIo0 8 C55pCGkrJQWvBLAlHYGzXRQij Lkoys0anZ2uRa1+PJEumBA5lK C0iK0oOdWjYxH8QAdfC110XnJ v fMVdOswyt7zco8matWb7XiIfM QMmjxRpzZeaLOY8f9QhLe93N6 UxkBcfs3RiSkn0hh96zOKzr2A 5 gUF2K3VpSZQsyzwjdNFwkOyoK Z9uIYKjbtuhZBTtcK8cAOVhZ9 c4GzQuXmC9RNnrQ1RfhoD9FGX v iINhXFSsbXWVnM7hhrlba9ujb mvrHbMiYMLlWHv8FAb9ERDzxP swMiShRXO1LeU3XMJ6lLAhcN5 h eVhuntuxcL8cMda+BBy5w8pkp UVgRP8leTQ2QI24XZ21iCSbm7 Q4yIR9H4EsJEKdhsclinnccAL 6 XHTpPDSuzZ52No5cxDewCu7hJ EUxLUI0OBDpcLWgP8QzvJ0zYp XoRABkTELsR6IhvRIvFHvyD69 6 NQxhUbO5ACAbfvUkI8OrKQTct NcaCkZ2m1B9Uf6SEC77DO32TH 01yTAik7N1wXV2A3AcXVEaaxa t ydzdbUG1DHDfONKnqZ23Td9rn UgmUs8nFXDlPHE4RYVenTVlD7 PowL8zJkJvOBGsYYWvJ6YmgQH t YTniT541XRnuGiH0EHIloyOsA 7DgRSOmiKlyGjB0j9F6Bz2YLa 43HT97CN02pXCad3K2sJQ0W1E h QRXlcqqecebsuJE4YUQvXVAcr E91Wt4agGttNc4hJBGiGBH5WP YcoOTaP7UkdB1cZgDmLSPyJFN w Z4OwzQBwCSylF114JOsbLnY7A VVwmpMvT0McXYXosWgtThX3m5 U5Lv9JTCnmrsk0A5BzJamwkQD + MY54MQQzSZ94lUFnuKKds3xdy Ae3JwHnPBPuZSE6wHkpRXgny6 UlKIYzC13jwTYlp4D8BTGbiLq h cHN (more content not included)... [facility] Coding Summaryon 07-15-2024 Coding Summary HTMLBase 64 FjdlzcdyXTd0cYn+PGhlYWQ+P J8WZIXfQ14ooZZdeK7sH7QYRS lOSywgQVBQTElOSyIgbmFtZT1 kaXNjZXJu IC8+JU2zHKQzIgsqtJImo1X5m VR8M08axa1iQFeoeMJ4QKGyQo Rhivvbm9eajIa4CBniBywzTkD t GECpwA92NEH0lV59Jb05nOGju ZRze1pbfJf8VvVgUGFkWZW4oC laRRzkv0WvXADfU19sjYHtn4O 6 PBWymAiggXWjBqMphIT3bU3xU Pwrwccdn1titchgAju3uv10sU Exx9N8jMU4Z0OyyhL5UXNzaLH g AclziHADbO0zthsec8pnnlmkX vSfZLGzIHx4GXn8GFIumFqqQw DtCA54GTF5VAArpcAkF8EtCYQ s yVykTfP6i5O8Sd5US1XNEjalM 1VNTUFSWTwvdGQ+BU87ri05V6 KmVtwwCwp5LTAdIXH6tMO9gO9 n ABToTNfdm5W1oPI7B4IojuIqh z5fx7joFLKrIOcgX68xeRNwd2 I8WCLrvNQ8ZOCcmBkgMcXmlG4 3 Oyc+QSFxtMdkj5UnCjpap0kbm 2qpyKb9SbzeSXInlvTxhNqjQX E9m8ZjFi7tADIzdWC1hGK8lU5 i MnTwCtH2GZszE646PwXjyOSjI inkJ85fG9MqqXZ+LJOsCwo7MK UosLxwHO4uB7WnXPSzpflfgFM m qZkkPC3pXKHwhvlhSBSzlM2bC BXfX0m6OfOcLoX1OApdS8QdSA GzwjqeFk08eW6bAfCnEtE8GZc u Q1RqozB5FGCyrROeIZesCHF5E 73fb0F2BWIrAVAnWIP2wNI7oJ 1hbGlnbjogbGVmdDsgdmVydGl j QDsdTUjzZ572OTHzlMmhWcYgT GluZyBEYXRlOiAgMDEvMzEvMj AyNTwvdGQ+YVXhIXH9kWylUXA n iPAdCAakAe7zlOspbTimCU4lG ZMyyuusIMAonI1lDUWcxJVvyD obIA5oGPSlqebov165FhUaOIE 0 AYNkiYOoI0FtzR4iAjJiSJLsC OEmG8VpeEAeNVpvK800IZxmUm F0FFTdslTqC9QyGBLulCgnQgD 0 c7X0Xz3Lr9GxzriaC3WllGDkK dGbAqtpJQa6T7OgBtimgNP+PC 33SIUgHM15JYn7GHT2dUfyFIr i CQMlA1ZhjY4aFsHcLGIbRSFzR yc+PHRhYmxlIHdpZHRoPScxMD WmWbJbzPbxDO6cKw4jQZHuWBN v sCptvGWtBlVat6bwKJRhRGcxV K5poNfqQ0OgyAJ9KTTzz8g4El 29S42eV2XozIP+OOJayWX4hZC 0 tL1cDbEqFnS2ERbsX416KsOdh LNkMrugd1lhp8zvzMb0DhN0QB CzdyWqlFkcPBE7e0ZiAg69D87 s IHdpZHRoPSIxNSUiIHZhbGlnb n0zwJ5sJa5+UUJcxCV1yUO2mH 7qIzGhCkR6PBstZ155GwVgaND v Hvywf4qva9vrjFo8SkWcIKYaf bQjdGgnOFL1y4MfYh84H3YsyC ivq5BmHkj7kz46bKXpj4O3qTD 9 N9RdWUHlythteECgjXwhFY1dK QKpxplcVYDhwR9tMKYuG1a8Ch XfOaQ8EAeiI5GjhuV6PCQpqJJ g XRFyyLIQwR9cydzju1vuxlnjV tDnBAMmBMo2PQk1IHQppZnnVs OlZCC4LjV9KVK0qUOvuE4woAg n atpqkW5xVoe+LQI4yPOskJWRL Z7tDzfeaBX+CRJxRLY1gKmcFP jrUVLvaJ2nKUTeX6t8ViQlMsF 1 TSyhA2NljmW0HCRskMLxKAKpt POSwQ6ibksir4vfxxrxPxRwEF XbZOk7HSv8UYIjwLbhWlYzCLU 0 SbH0BAI4bXJpcS6wlAbdyifgi G9wOyc+NycrqXokEWP4GQr0V2 MlOtl3ATYfuAcpKD6iyRYwYQt u Vf8daTpupMdgJH6cGYIjuagcn 996MtAxa9xgEMIvaBUpWOlqWN H9M82jc1A5TDScISYfKNX1rPT 4 lP1wfNjrkgbqhEDhgUgjfwDgp JsyQMjaWXgpI257PIBkcUbrXv OwOYk0H2XeTyk1MDCnsYwvMF0 n mQHlMMwdHm9xzVpxkIoeLA7wA OSzzmcin042FcCly4nrGZRmfC ZpMVjbYAK2F43wy6E5UHQnFZC w FIF8xWH8zE4ltEdssieqjOFcg GtmboPbiRmxDWmdKDecA161KM RmkXnxIzBpcHa1K2VbQho6RCQ z uHqmCO0lbYOvKSpzSh8kvHcot EauSL8aJEArahvok650UhQdn6 egJWTmnVZdYBnpXCV2Z13yp3N 6 CQPuSYExMSL8sHA4pR4lyMpnu jogbGVmdDsgdmVydGljYWwtYW rlR376LTZohSaiJaMauAuiwpJ g CLisEIx6S6CwRusqoDV+PC90Y HVeOM23tNOebLXvd6mppNg8Mn GlUPPbNTW7dUpzEJata0ChRIU t G80bdPVmo5P2YJZllUwdeUQpQ qGhkCR3mL0qEKkhoawzk5sjzj uvZhcya4umwp77vA47D91fCZp p YHTdBCYpFHMxDNLujSezyd9tq G9wIi8+GHKnmRM9uGS7rS4iOM ZqXjD1DSmyH066QvZxnRHbIyd j k3eug7lmvHg9SdJ6ZFHkrdMep VqqONX3n7ZeAg07F74rASpzJD WsNURlRYMeNKIbwXkdzw9qzW8 w Ii8+XWQyiHY1bOV4fH6lJbHoR nV9QRmcB558IpXitLTjEjihY0 6pA1VqsSQ+DAYrFgp8EFNgqXp s XE9ilDIgPRdlMx2fCBP0SyQhW jPqTIxrN3GwNVCqnoitkvzumK B3UNTpYXBfcH09Gl5qzHlbNWJ w yPADbC2gjxlod2cumnyyLhYqG RPqJTj0SHs3JTJyaYjrTqWsGT T8VlI6DVN2eHLuvK6yqGtufqw g xF1zQ5RuOFBdhottZq40oG6oN hFfYcJ4SBfkRof+RklTSCwgSk FNRVMgVzwvdGQ+IMKeWXD4sVd l FYciNOLlaJ5xCNRiW5i6XkQcL tE0KScwY0QqFVArfvunYo01eG 4iVdMuSjL5AWxjM2NuwgZ3DAF w sZVrOBfjSCL7Z73em6U1AWWzQ PGxTIT5sIK4dV9prUnbdiifvI GldKucdqCavFteJPwvEZncI46 6 QZSxsSbkOxPtRnW2LyN0IiM0W 8NqMzy5EDAraUukBE3trPUuLP gdUg1pdSqecCiyGL5cERDnfxp w WMCpeF4tFTSzzIZggZemUS9oO AYzikuyp419XhYqHNC5XSHtmU HoT9BzwC5tNrUvETKgSXWtH3I l hRIbRJwqP346KKfqEcV4ODUql vJcE0LxBQIkyLumMwZ3j7S8Zd 44OCBZZWFyczwvdGQ+PHRkIHN 0 wMjyEAmuJRGgbH0jHSGrC9m8R dSaJvO6KJypX9WbOJPcrhzkUq 35rD6zPkEvTgN3CRglV6KjcjA 6 ANElwSDjDPqxMIF4E35bn6K4W HMiBJKxZAG0eSO5vC7ivLjstg ogbGVmdDsgdmVydGljYWwtYWx p M620MAGbsMaiXz5KGZI1E9PcC jn0MRSgeCpaZM5yzEMmZPntYt 0umSctfJsmWF1dPPTfjhodQOT k lA3kVVNnyFBwvVcsUJ9qLPBzm fscn687ViVkYEV7GDEswKUfH3 HsnL2oWvCwALKsJHSfZ7IoyHB t XZzsR801GKpmKhY5ZJXayvClA 1HhLJUtiBksDiK8g1D4Tx7QRS wvdGQ+ZP15np71Y3KhTzvxVoa 0 IEFvOQJ3aQS6lD2pXFEfBFvlw 6F4uMX6O3RgozNgcm6nm1fsKO VwJWhlB56jlHGtl6H9XCTtxQH 5 MYVpfTbyNiNnvD94Nod+PGNvb Qvxs7DvVzqdw8hym0gmkWf3Dd RlCGRmlfZpwOesXLC9k2CjDv6 8 D97tXFchMAFuTVHwWDIaZVWce Rmqlg6rdZ6pBl4+YQTckRG4nH E3kV0iDlCoBiK9GBngM862GlY v wSErRgxth3jos7dflJt8WuRxT AIitxTfpDieIRA8n9FpSw39Z6 JeeQach7EcMxb7ag05gASef1K 5 zQR4O7IrMVKkteaynLXkxXgvS Q0mRCVwddhkOALowV7mWKWwJ6 w1DtOrIvV5RHtxE6TwyrQ7KBK v qGJhKMMpnGKZdF4yqxgja6tit tgeFiQoEZTzTXk4ELl9LWUufW nqNqKfHEG8NwQ2BRN2gPEetV4 h mRsomgxmiD1iYun+IEq2v8mfz DZwAI8zqVA3FS55UR44tOVte1 D5fTY7Q5ZqCAQuospbrkauwKK 6 WXXfGKBytC16Nz1mmIdjQw5sY GQjDLR7MHZebUTxX0ZytR8jGz RdEHUbYQBaG6JemODvAUizW91 6 NZnkPzL4MREgjvPfL4FqIONwj FixWhX8u4M8Qc0WFC26GH89UI 56uTJrb1V6mFO8J0IgTMQzhbg t qdwcfMJ7HQJtPFNyoH76So3uo DvuZw6mZSPeZHR4VKZikLDbC5 VhxN1jEbAsIONwXTVfA1BvsDA t SXzcX096GTagWjI7JGVrpyIaX 1TwNAPklMtsGlA5x5G6Gu6LEf 61TI62UQ79bLNzs2H3hDA5K3C h YSHvfnpitympoCR0TCUwCMDqp Z49Ap1ztHcjNg2qGHMfVFD5KU DbdVLcJ9TxsB5mBrApHCUnGEM w J7JgtNReTJrzF760RNlrXrJ8R NOzfkSaJ3KtILEwnLjeFnC1e9 M9Xm9VAMjggiz4U6KeNdubkBB + YT24ECFhOU28jKPuvOMcn3ota Ku0UeBqCJDcJDN4mFeoZOdku4 RmJNKzB10llQLgv4L6DFXmxLm h cHN (more content not included)... [facility] Coding Summaryon 07-08-2024 Coding Summary HTMLBase 64 QyifysqeNRd6oDi+PGhlYWQ+P J5OHMXxT50qmXBncU9oW7JOXB lOSywgQVBQTElOSyIgbmFtZT1 kaXNjZXJu IC8+XG8xPQVpCnuotIOla8J6h EE9F67fsi1cCQdhyFV0NZRpGa Zxbpwdc1eegVc6KRdeJlduHtR t UAUrmG68CBP7jG50Me85kNMiq MOdc1kwlHe3WfIoRILoHAB5tD aaQByng6PsLHOdM51fgNOxq7U 6 VGRrdFhcbFDzKkNngDS0kA1lY Ybteflbj8xvoxmuNlh1ef27aD Wiq9W0gUE4I1QproQ6BCIdiPU g KntggIRDfI0ehxrxv1dmayiqO zWaZHRvDXa8MIv1HTAnhVoeOh UgRR32BVS9IMIoynVuW2ByYGZ s mPysUbX4r6S0Wj1YS2CLYjjyT 1VNTUFSWTwvdGQ+IN68dt69D4 ErUutsOii4YMJmBZR7eLX6mI3 n JUWdSBgvi2F0dOY1K0KglhCxt i3vl0akLQLfTMllX51toVNev4 Q9NJKcnQM8YAQsuDecThNxhY6 3 Oyc+NCRoxVeak6GlEckwn9uxr 9ekhNr1BgimKGTrykSksYjfXT M0e5ZxXo8nTTEoqAT9xMH2bI3 i JiQyAbZ8ABlsA595WqYohTIeD zcxY94jI9CxxTR+HPHjNhf6CP BcdMhpVT2jS3UaAORkbmfvdEP m eFtgEF6yIIUlgixrICPwtY2aB YDrV3l3AhAwXvV6RBvhG3PgBE CsvddnNz38mZ9aFyWsOiK1JKk u R3IehuP3FZPnvIKhGPpyLEY6Q 40jq5C5HNEaCMHrDTV6uJJ0yY 1hbGlnbjogbGVmdDsgdmVydGl j UVfjKPgxU844KBHndLmnMbIjP GluZyBEYXRlOiAgMDEvMjQvMj AyNTwvdGQ+BQFyUUF2rQpjUSZ n zFYtTKcaJm3neDjghVdmQS9mD TPxxjxaGVRrvQ0dWMPtmNUarM jfIY6bZDAbnspqs588SfHkJGB 0 IQAorYVbQ7YwvS5oCoNoOQLmO EAcA6RkpOOtVGzrS116OWjaQo N1QYQhavCkI2XqRHMpuFthMlN 0 l5A9Ba5Yq2PjfhqiR2EprLCxS pMhEcamNEd7Q7WlEajqkKN+PC 54QBVxCS52MLq9YBV6tPmtPBb i FCSoP5IdaJ4nLiJpUVFgJIXlQ yc+PHRhYmxlIHdpZHRoPScxMD AsBySewIvwFY4xTl0eXYAiNHX v pFguxVPxUtXal4noUQTvZJdmQ S8ayXubV6VtqNT5GAOmy8n5Rm 77I32oN5DyyBR+LZWefTZ7gKF 0 aL5qBsCtPhF8YIotN206WiHml IJeIyvao6bhi6xusIi0AiH5JC PidwCdyLblJUC9x9ZfCx46L13 s IHdpZHRoPSIxNSUiIHZhbGlnb z5ubQ5oAl9+WFTeiCD8oPG1hM 1tLmLxGaY7BJamX244XtPnaOQ v Dhmil7ecg4qmlSj8PwZyWSRvl uYffLncCHS3q2QiOd46N1NuxA xkx9MuCjw2il40lGMsx7W3kME 9 H3WoVXMcosqidIVebGewVE9iR MRxztjeGNIecG7mPNKdS9e2Zy UqNdU0ZSqhO6DzkkD7CXSurZX g RIEoqACOsD1orowug1bqqtlmX eFmCBFyJOx3RSy8VVOucBbdDp AyHBG2NuU9JUR4jCOpuX0rcXw n ipkjlF5rQfa+UYB4cDXmrECWK W0rBqrlfWZ+MZSgCCF2iQiaOK diATEpeC3hXXYqE0w4ViNqWhN 1 HGxgT2NbwjU3FKHrjBKyHZUsm KAMoA3hfvzbl4logunrJtUoRY RcIGu6EZh5HQJjjDatPvXkROV 0 LjU0KTZ5gRJikV5nhPddmvdio G9wOyc+PwepbUeuLHU3VPr5G8 EfLzj9GQUqoOptNU4euBJkMBd u Hx7owHqcrHkqQC6qKUHtwjvrf 497CxWaf2lyOICtkYGjVPtaJP D9T52fe6E3TXQbJVHeLMQ8hPO 4 eF8ytCieaonzgVGkxGfoheAwi WozGZldVVwlZ450HFPdfVbdQf XeHXy3R7RbYts7TJGdcDtlWU0 n zFQiDUwcZr9okQqoiKllXC0uY TYgprxjj273NzAde1tlAMXsgK VhMWizWCN6D09tg2P6RIOeUCR w IQA4eHO6gG1adGqsjapihEPmy XqxxiClkMwhYYsdFHquI065RD CbhNnoJvIglSz6V6GvCnt4GIY z iRppYM1cbRSyYCtxMv7lmRfar PxwNM7tBDOhcxoas035CrRgs1 pzELVbhFEbIHxeXDK6R78hk1A 6 VHMaCMQdBIA3kMT9eW4wuMorm jogbGVmdDsgdmVydGljYWwtYW adP118EBXopNjiLfCkfHnehuI g SWmtNGv5X1YuQblpdWC+PC90Y OLtUJ12iCCtdNNoz4lfjWz2Hu CcVNBcSON3aMbvSHqcq2YrHIR t J76ehVLml5I1NZAucViycSScA wAnjUH9eG2eJCznjjall1wokj omYdgen7pylw75zR08P90vMBr p CRTnLYJzRYFiTIGfuDbzwd4cr G9wIi8+OSZtaOF5uCC8wW1yOW SiUzG8EVayR360QqWchWTnMof j k2mje8lfoZm0EkW0IQFfqqMdf DokVRM3d4FkRi47U56wYJakDQ SzPQYzEJBzEKPbmFpcty9dwN5 w Ii8+MDBvaYQ5kSK7vP9lFjSoP jF8XTctD778PfPvmPHxClxfZ2 0hW3FjsFM+VGDcKfe4GGJjhCj s XN9ndUIoYLdaBc5hQXV6NfCvP cRaTEvmK3KoOJNegddbbdyueF J9QKFjFMRepB87Le5tuHyoZHE w yWFHrT3njvizl8jyknmkAaHyN ROuSZl1DZh6XQGysLqkBlSsZA Y7WwO7RKH7iEBohI5hgEcvzet g pK8pB1BgUGSinbzfPc58aW9cB cTmLyY9NMptOqk+RklTSCwgSk FNRVMgVzwvdGQ+VCGfVJD7xAh l PSpmHKGtgM9aKPIkP0h2AlGzX bA0GVvnP4BzLXNdfatsOl37dK 6mCpZcQwK5JAgeO2AnipP7AOP w bKZjIXpsIJK0W81fi6V6CLKmV QCgSHC9oGC4xH8hdWitqedwlG RibYyjriSboEloRFqePYwlD17 6 PEBmoYqqCiXoGvY3QiP9BhF6S 0FnPuf0GQQwpSvzZU5hzRMgFY chXu4vkQxygAxbMB6zEGYwfpt w CWYdeD5nJRWwaHWdgEucOV6nS TPwgmeqg343LvHiYBS6TCAaaQ EwT3KshM0bDcNmGLGfGDPiJ8D l nALoYIbvE089LRqzMhY9DHYir yWqV0TbNTKbfHflVxB5z7A8Ah 44OCBZZWFyczwvdGQ+PHRkIHN 0 dHbqOCfmRFFreG5mNYAnM7i0Y qLiEmW2JUweY4JhJBXbyaahKe 25eM5qSxByCcB3JWnrA6WvmiL 6 XAZggPRsZScdECO3L79zx5L9Z ZJtVRJsUJY1aBA0fM7jxFizma ogbGVmdDsgdmVydGljYWwtYWx p L215BEEnnYqnKb2OVAN2M1VxI bb7GHZniOmgER2krQQnSEvtLj 0irNtlmOndCQ3pNNKdddlsYUN k yP9rSUVlrMPigEaoNM1dUEYbe dfwd862SpYnMWP9SCQljRHxZ8 VsvV2tYxWaVNGsTROlO6UgoDE t QNmkP677RUhmQhL8GTEaznVtK 5VjIANxkUaiTzD5n1X3Ea6OKD wvdGQ+MH30fn59D3OyJcmcDdj 0 BHArTGL2zWK5uV4uORCmHYahj 6R4jJM5N2AunsEdns7kl1hqFJ GkRZdeW61deAKhv1Z8ZASszTH 5 DMYoxOhyXgYwwA00Ftb+PGNvb Sojs2WtRfqgk3ayv7vymVd8Bx OmRRCwzpYpbGlkSYV1e0BtLj6 8 X52uBDbrDQNsCWHdWTBbMEXlg Hnjeh0pwL1vPr8+EVEohAB7vC R6sX7mYjYfMjX9VQwcM247MgZ v gBYgErlwc7woa0woaRu4EjYjQ KSrqrBgdKihTCS3w8AkSb88L2 JcfZlif8XyEom5gi43lASig3S 5 kUM3Q2QbSQCujkwjaYEclEuaV N2aVVLmeqjeZCZvlK4zFDMzT8 i4KmVvNmZ7AKogR0JfnuN2ICS v sWHbOCQmuTKEyA7bodsdw0itk oeyQhPmHQAdLWr6PZk5PSPtgD poXnNdCTO9AkW3RHE9tGSqhR7 h oPjvxoqzrN3bPns+ZQf6p1spz VQlAS7cnHP3GT54IZ58xJLnv6 D8gDS1D9VyALRnngdabjxzkVG 6 HVAjADKmzR25Xm7uwTfhAk3wT JJhOQK0PIHoyYJnV3EzgU5zRi GmYXZiZJHcF8ZqdMMxGAjoS26 6 EXewFtQ0MZRzryHnG2AbYFGeu FzjPbK5a1Q8Ep1MOC08XR77RS 71wLIeq1M4yHQ7S7IpUJEtcud t delatDE5OUEuTUFjmH09Wo2ze WyvKr6kVKNcVGR4LHCsvKPnJ2 BdnL5pCkVdFMHeFSSjU5VciAV t GBbkW271KQbcPnO4VOGbdkOzB 0ZuJOGcfQgkDcR0m4W0Rs8WPd 19SX20EE87kSNgl4H4gNA6F6R h KKGsejxxlryrmLR7RYLaJRXwy O77Ww2vwSqlHd7uPHTdBRY6YP AkeYYqT0SudU3zKrMbLNAqEBJ w J8GuxBPuIGeyQ832CJwbAiU7G RBiquHtO9YfZAHoyIjmEtU2s6 O9Rp8XTBtmvot9P7ZqIsreeKS + ZD60QAVeFM09tBAxmCSlh8seg Jv6YxZgUFCrYPS2iThlFDmjl3 RiPGVaY12xyIQfh6H7VEUxgIg h cHN (more content not included)... [facility] Alanine aminotransferase [En zymatic activity/volume] in Serum or PlasmaOrdered By: Gely Lin on 06-15-2024 ALT [Catalytic activity/Vol] Alanine aminotransferase [Enzymatic activity/volume] in Serum or Plasma [facility] Albumin [Mass/volume] in Ser um or Plasma by Bromocresol green (BCG) dye binding methoOrdered By: Gely Lin on 06-15-2024 Albumin BCG dye [Mass/Vol] Albumin [Mass/volume] in Serum or Plasma by Bromocresol green (BCG) dye binding metho 3.5-5.7 [facility] Alkaline phosphatase [Enzyma tic activity/volume] in Serum or PlasmaOrdered By: Gely Lin on 06-15-2024 ALP [Catalytic activity/Vol] Alkaline phosphatase [Enzymatic activity/volume] in Serum or Plasma 34-104 [facility] Anisocytosis LM Ql (Bld)Orde red By: Gely Lin on 06-15-2024 Anisocytosis Ql (Bld) Anisocytosis [Pres ence] in Blood by Light microscopy [facility] Appearance of UrineOrdered B y: Gely Lin on 06-15-2024 Appearance (U) Urine appearance Abnormal Clear [facility] Aspartate aminotransferase [ Enzymatic activity/volume] in Serum or PlasmaOrdered By: Gely Lin on 06-15-2024 AST [Catalytic activity/Vol] Aspartate aminotransferase [Enzymatic activity/volume] in Serum or Plasma 13-39 [facility] Bacteria [Presence] in Urine by AutomatedOrdered By: Gely Lin on 06-15-2024 Bacteria Auto Ql (U) Bacteria [Presence] in Urine by Automated High None Seen [facility] Basophils Auto (Bld) [#/Vol] Ordered By: Gely Lin on 06-15-2024 Basophils (Bld) [#/Vol] Automated basophil count 0.0-0.2 [facility] Basophils/100 WBC Auto (Bld) Ordered By: Gely Lin on 06-15-2024 Basophils/100 WBC (Bld) Automated basophil % . [facility] Bilirubin Test strip Ql (U)O rdered By: Gely Lin on 06-15-2024 Bilirubin Ql (U) Bilirubin.total [Presence] in Urine by Test strip Negative [facility] Bilirubin.total [Mass/volume ] in Serum or PlasmaOrdered By: Gely Lin on 06-15-2024 Bilirubin [Mass/Vol] Bilirubin.total [Mass/volume] in Serum or Plasma High 0.3-1.0 [facility] Comment on above: Samples from patient s who have taken Naproxen have shown spurious elevation in Total Bilirubin levels. A metabolite of Naproxen, O-desmethylnaproxen, has been shown to interfere with the Jendrassik-Grof method for measuring Total Bilirubin. Blood Cultureon 06-15-2024 Bacteria identified Cx Nom (Bld) NO GROWTH 5 DAYS PERFORMED BY: [facility] [address] [place] [address] PATHOLOGIST SANITATION DIRECTOR SHIVAM CORREA M.D. Normal [facility] Comment on above: Performed By: #### P T #### [facility] [address] COVID Cepheid NegativeOrdere d By: Gely Lin on 06-15-2024 SARS-CoV-2 (COVID-19) Ab IA Ql COVID Cepheid Negative [facility] Comment on above: This is a duplicate [...] or Cepheid Disclaimer revoked sooner. PERFORMED BY: [place] [address] PATHOLOGIST SANITATION DIRECTOR SHIVAM CORREA M.D. Normal [facility] Comment on above: Performed By: #### C EPHEID NEG, COVID19 FLU RSV ####[facility] [id number] [address] abdomen pelvis wo conon 0 06-15-2024 CT abdomen pelvis wo con [facility] [place] [address] [place] [address] CT Scan Report Signed Patient: Fani Chua MR#: [id number] : 1935 Acct:[id number] Age/Sex: 89 / M ADM Date: 06/15/24 Loc: ER Room: Type: [facility] ER Attending Dr: Copies to: [...] Trey Murray M.D.06/15/2024 2:39 PM Dictation Location: [place] [address] Transcribed By: [facility] 06/15/24 1439 Dictated By: Trey Murray DO 06/15/24 1433 Signed By: 06/15/24 1439 Normal [facility] Calcium [Mass/volume] in Ser um or PlasmaOrdered By: Gely Lin on 06-15-2024 Calcium [Mass/Vol] Calcium [Mass/volume ] in Serum or Plasma 8.6-10.3 [facility] Carbon dioxide, total [Moles /volume] in Serum or PlasmaOrdered By: Gely Lin on 06-15-2024 CO2 [Moles/Vol] Carbon dioxide, tota l [Moles/volume] in Serum or Plasma 21.0-31.0 [facility] Cepheid COVID PCR Negativeon 06-15-2024 SARS-CoV-2 (COVID-19) RNA SHARRI+probe Ql (Unsp spec) Negative Normal Negative [facility] Comment on above: Result Comment: This is a duplicate Cepheid Xpert Xpress CoV-2/Flu/RSV Plus RNA by RT-PCR result to be used for statistical tracking purpose only. PERFORMED BY: [place] [address] PATHOLOGIST SANITATION DIRECTOR SHIVAM CORREA M.D. Performed By: #### C EPHEID NEG, COVID19 FLU RSV ####[facility] [place] [address] [place] Chloride [Moles/volume] in S aime or PlasmaOrdered By: Gely Lin on 06-15-2024 Chloride [Moles/Vol] Chloride [Moles/vol ume] in Serum or Plasma 98-107 [facility] Color Auto (U)Ordered By: Hai Lin on 06-15-2024 Color (U) Color of Urine by Auto Yellow [facility] Comprehensive Metabolic Pane rui 06-15-2024 Albumin [Mass/Vol] 3.8 g/dL Normal 3.5-5.7 [facility] Comment on above: Performed By: #### C [address] #### [address] Albumin/Globulin [Mass ratio] 1.2 {ratio} Normal [facility] Comment on above: Performed By: #### C [address] #### [address] ALP [Catalytic activity/Vol] 81 U/L Normal 34-104 [facility] Comment on above: Performed By: #### C [address] #### [place] [id number] [facility] ALT [Catalytic activity/Vol] 23 U/L Normal 7-52 [facility] Comment on above: Performed By: #### C [address] #### [address] Anion gap [Moles/Vol] 12.6 mmol/L Normal 6.0-15.0 [facility] Comment on above: Performed By: #### C [address] #### [facility] [address] [place] [id number] [facility] AST [Catalytic activity/Vol] 29 U/L Normal 13-39 [facility] Comment on above: Performed By: #### C [address] #### [address] Bilirubin [Mass/Vol] 1.6 mg/dL High 0.3-1.0 [facility] Comment on above: Result Comment: Samp les from patients who have taken Naproxen have shown spurious elevation in Total Bilirubin levels. A metabolite of Naproxen, O-desmethylnaproxen, has been shown to interfere with the Jendrassik-Grof method for measuring Total Bilirubin. Performed By: #### C [address] #### [address] Calcium [Mass/Vol] 9.1 mg/dL Normal 8.6-10.3 [facility] Comment on above: Performed By: #### C [address] #### [address] Chloride [Moles/Vol] 98 mmol/L Normal 98-107 [facility] Comment on above: Performed By: #### C [address] #### [place] [id number] [facility] CO2 [Moles/Vol] 27.2 mmol/L Normal 21.0-31.0 [facility] Comment on above: Performed By: #### C [address] #### [place] [id number] [facility] Creatinine [Mass/Vol] 1.02 mg/dL Normal 0.70-1.30 [facility] Comment on above: Performed By: #### C [address] #### [place] [id number] [place] Creatinine Clr Calc Pharmacy 50.06 Normal [facility] Comment on above: Performed By: #### [place] [address] [facility] #### [address] GFR/1.73 sq M.predicted MDRD (S/P/Bld) [Vol rate/Area] mL/min/{1.73_m2} Normal [facility] Comment on above: Performed By: #### C [place] [address] [facility] #### [address] Globulin (S) [Mass/Vol] 3.3 g/dL Normal [facility] Comment on above: Performed By: #### C [address] #### [address] Glucose [Mass/Vol] 98 mg/dL Normal 70-100 [facility] Comment on above: Result Comment: [facility] Glucose Reference Range is dependent on time and content of last meal. Glucose of more than 200 mg/dL in a nonstressed, ambulatory subject supports the diagnosis of Diabetes Mellitus. ADA recommended reference range Performed By: #### C [address] #### [address] Potassium [Moles/Vol] 3.8 mmol/L Normal 3.5-5.1 [facility] Comment on above: Performed By: #### C [address] #### [address] Protein [Mass/Vol] 7.1 g/dL Normal 6.4-8.9 [facility] Comment on above: Performed By: #### [address] [place] [address] [facility] #### [address] Sodium [Moles/Vol] 134 mmol/L Low 136-145 [facility] Comment on above: Performed By: #### C [place] [address] [facility] #### [address] Urea nitrogen [Mass/Vol] 18 mg/dL Normal 7-25 [facility] Comment on above: Performed By: #### C [place] [address] [facility] #### [facility] [address] [place] [address] [place] Creatinine [Mass/volume] in Serum or PlasmaOrdered By: Gely Lin on 06-15-2024 Creatinine [Mass/Vol] Creatinine [Mass/v olume] in Serum or Plasma 0.70-1.30 [facility] Dipstick and Microscopicon 0 06-15-2024 Appearance (U) Cloudy Critically abnormal Clear [facility] Comment on above: Order Comment: Healt hcare Worker?: N Performed By: #### C [place] [address] [facility] #### [facility] [address] [place] [address] [place] Bacteria,Urine 3+ High None Seen [facility] Comment on above: Order Comment: Healt hcare Worker?: N Performed By: #### C [place] [address] [facility] #### [facility] [address] [place] [address] [place] Bilirubin,Urine Negative Normal Negative [facility] Comment on above: Order Comment: Healt hcare Worker?: N Performed By: #### C [place] [address] [facility] #### [facility] [address] [place] [address] [place] Color (U) Yellow Normal Yellow [facility] Comment on above: Order Comment: Healt hcare Worker?: N Performed By: #### C [place] [address] [facility] #### [facility] [address] [place] [address] [place] Glucose Ql (U) Normal Normal Normal [facility] Comment on above: Order Comment: Healt hcare Worker?: N Performed By: #### C [place] [address] [facility] #### [facility] [address] [place] [address] [place] Hyaline Casts,Urine 0 [LPF] Normal 0-8 [facility] Comment on above: Order Comment: Healt hcare Worker?: N Performed By: #### C [place] [address] [facility] #### [facility] [address] [place] [address] [place] Ketones Ql (U) Negative Normal Negative [facility] Comment on above: Order Comment: Healt hcare Worker?: N Performed By: #### C [address] #### [address] Leukocyte esterase Test strip Ql (U) 4+ High Negative [facility] Comment on above: Order Comment: Healt hcare Worker?: N Performed By: #### C [address] #### [address] Mucus,Urine 1+ Critically abnormal [facility] Comment on above: Order Comment: Healt hcare Worker?: N Result Comment: PERF ORMED BY: [place] [address] PATHOLOGIST SANITATION DIRECTOR SHIVAM CORREA M.D. Performed By: #### C [address] #### [place] [address] [place] Nitrite,Urine Negative Normal Negative [facility] Comment on above: Order Comment: Healt hcare Worker?: N Performed By: #### C [address] #### [place] [address] [place] Occult Blood,Urine 3+ High Negative [facility] Comment on above: Order Comment: Healt hcare Worker?: N Result Comment: PERF ORMED BY: [place] [address] PATHOLOGIST SANITATION DIRECTOR SHIVAM CORREA M.D. Performed By: #### C [address] #### [address] pH (U) 5.5 [pH] Normal 5.0-9.0 [facility] Comment on above: Order Comment: Healt hcare Worker?: N Performed By: #### C [address] #### [place] [address] [place] Protein (U) [Mass/Vol] 70 mg/dL High Negative [facility] Comment on above: Order Comment: Healt hcare Worker?: N Performed By: #### C [address] #### [facility] [address] RBC,Urine 50 [HPF] High 0-4 [facility] Comment on above: Order Comment: Healt hcare Worker?: N Performed By: #### C [address] #### [facility] [address] Specificy [place],Urine 1.017 Normal 1.001-1.03 0 [facility] Comment on above: Order Comment: Healt hcare Worker?: N Performed By: #### C [address] #### [address] Urobilinogen,Urine Normal Normal Normal [facility] Comment on above: Order Comment: Healt hcare Worker?: N Performed By: #### C [address] #### [address] WBC CLUMP, Urine Many High None Seen [facility] Comment on above: Order Comment: Healt hcare Worker?: N Performed By: #### C [address] #### [place] [address] [place] WBC,Urine Innumerable High 0-4 [facility] Comment on above: Order Comment: Healt hcare Worker?: N Performed By: #### C [address] #### [address] ECG 12 lead ECGon 06-15-2024 ECG 12 lead ECG [facility] [place] [address] [place] [address] Electrocardiograph Report Signed Patient: Fani Chua MR#: [id number] : 1935 Acct:[id number] Age/Sex: 89 / M ADM Date: 06/15/24 Loc: ER Room: Type: [facility] ER Attending Dr: Ordering Provider: [...] intraventricular block Confirmed by Bipin Ortiz DO ([id number]) on 06/15/2024 3:57:48 PM Referred By: Electronically Signed By: Bipin Ortiz DO Transcribed By: MUS Signed By Bipin Ortiz DO [id number] Normal [facility] Eosinophils Auto (Bld) [#/Vo l]Ordered By: Gely Lin on 06-15-2024 Eosinophils (Bld) [#/Vol] Automated eosinophil count 0.0-0.45 [facility] Eosinophils/100 WBC Auto (Bl d)Ordered By: Gely Lin on 06-15-2024 Eosinophils/100 WBC (Bld) Automated eosinophil % . [facility] Epithelial cells.squamous [# /area] in Urine sediment by Automated countOrdered By: Gely Lin on 06-15-2024 Epithelial cells.squamous Auto (Urine sed) [#/Area] Epithelial cells.squamous [#/area] in Urine sediment by Automated count [facility] Erythrocyte distribution wid th Auto (RBC) [Ratio]Ordered By: Gely Lin on 06-15-2024 Erythrocyte distribution width (RBC) [Ratio] Erythrocyte distribution width [Ratio] by Automated count High 12.0-14.8 [facility] Erythrocyte morphology findi ng [Identifier] in BloodOrdered By: Gely Lin on 06-15-2024 RBC morphology finding Nom (Bld) RBC morphology [facility] Erythrocytes [#/area] in Uri ne sediment by Automated countOrdered By: Gely Lin on 06-15-2024 RBC Auto (Urine sed) [#/Area] Erythrocytes [#/area] in Urine sediment by Automated count High 0-4 [facility] Globulin Calc (S) [Mass/Vol] Ordered By: Gely Lin on 06-15-2024 Globulin (S) [Mass/Vol] Serum globulin measurement by calculation (mass/volume) [facility] Glucose [Mass/volume] in Ser um or PlasmaOrdered By: Gely Lin on 06-15-2024 Glucose [Mass/Vol] Glucose [Mass/volume ] in Serum or Plasma 70-100 [facility] Comment on above: ADA recommended refe [...] [Mass/volume] in Urine by Test strip Normal [facility] Hematocrit Auto (Bld) [Volum e fraction]Ordered By: Gely Lin on 06-15-2024 Hematocrit (Bld) [Volume fraction] Hematocrit [Volume Fraction] of Blood by Automated count Low 38.8-50.0 [facility] Hemoglobin Test strip Ql (U) Ordered By: Gely Lin on 06-15-2024 Hemoglobin Ql (U) Hemoglobin [Presence ] in Urine by Test strip High Negative [facility] Hemoglobin [Mass/volume] in BloodOrdered By: Gely Lin on 06-15-2024 Hemoglobin (Bld) [Mass/Vol] Hemoglobin [Mass/volume] in Blood Low 13.0-17.0 [facility] Hyaline casts [#/area] in Ur ine sediment by Automated countOrdered By: Gely Lin on 06-15-2024 Hyaline casts Auto (Urine sed) [#/Area] Hyaline casts [#/area] in Urine sediment by Automated count 0-8 [facility] Hypochromia LM Ql (Bld)Order ed By: Gely Lin on 06-15-2024 Hypochromia Ql (Bld) Hypochromia [Presen ce] in Blood by Light microscopy [facility] Ketones Test strip Ql (U)Ord ered By: Gely Lin on 06-15-2024 Ketones Ql (U) Ketones [Presence] i n Urine by Test strip Negative [facility] Lactate [Moles/volume] in Se rum or PlasmaOrdered By: Gely Lin on 01-01-2025 Lactate [Moles/Vol] Lactate [Moles/volum e] in Serum or Plasma 0.5-2.2 [facility] Lactic Acidon 06-15-2024 Lactate [Moles/Vol] 1.6 mmol/L Normal 0.5-2.2 [facility] Comment on above: Result Comment: PERF ORMED BY: [place] [address] PATHOLOGIST SANITATION DIRECTOR SHIVAM CORREA M.D. Performed By: #### P T #### [facility] [address] [place] [address] Leukocyte clumps [Presence] in Urine by AutomatedOrdered By: Gely iLn on 06-15-2024 Leukocyte clumps Auto Ql (U) Leukocyte clumps [Presence] in Urine by Automated High None Seen [facility] Leukocyte esterase [Presence ] in Urine by Test stripOrdered By: Gely Lin on 06-15-2024 Leukocyte esterase Test strip Ql (U) Leukocyte esterase [Presence] in Urine by Test strip High Negative [facility] Leukocytes [#/area] in Urine sediment by Automated countOrdered By: Gely Lin on 06-15-2024 WBC Auto (Urine sed) [#/Area] Leukocytes [#/area] in Urine sediment by Automated count High 0-4 [facility] Leukocytes [#/volume] correc amparo for nucleated erythrocytes in Blood by Automated counOrdered By: Gely Lin on 06-15-2024 WBC corrected for nucl RBC Auto (Bld) [#/Vol] Leukocytes [#/volume] corrected for nucleated erythrocytes in Blood by Automated coun 4.1-10.5 [facility] Lipaseon 06-15-2024 Lipase [Catalytic activity/Vol] 16.0 U/L Normal 11.0-82.0 [facility] Comment on above: Result Comment: PERF ORMED BY: [place] [address] PATHOLOGIST SANITATION DIRECTOR SHIVAM CORREA M.D. Performed By: #### C [place] [address] [facility] #### [facility] [address] [place] [address] Lipase [Enzymatic activity/v olume] in Serum or PlasmaOrdered By: Gely Lin on 06-15-2024 Lipase [Catalytic activity/Vol] Lipase [Enzymatic activity/volume] in Serum or Plasma 11.0-82.0 [facility] Lymphocytes Auto (Bld) [#/Vo l]Ordered By: Gely Lin on 06-15-2024 Lymphocytes (Bld) [#/Vol] Lymphocytes [#/volume] in Blood by Automated count 1.00-4.8 [facility] Lymphocytes/100 WBC Auto (Bl d)Ordered By: Gely Lin on 06-15-2024 Lymphocytes/100 WBC (Bld) Lymphocytes/100 leukocytes in Blood by Automated count . [facility] MCH Auto (RBC) [Entitic mass ]Ordered By: Gely Lin on 06-15-2024 MCH (RBC) [Entitic mass] MCH [Entitic mass] by Automated count 27.5-35.2 [facility] MCHC Auto (RBC) [Mass/Vol]Or dered By: Gely Lin on 06-15-2024 MCHC (RBC) [Mass/Vol] MCHC [Mass/volume] by Automated count 32.5-35.6 [facility] MCV Auto (RBC) [Entitic vol] Ordered By: Gely Lin on 06-15-2024 MCV (RBC) [Entitic vol] MCV [Entitic volume] by Automated count 83.5-101 [facility] Monocyte distribution width [Entitic volume] in Blood by AutomatedOrdered By: Gely Lin on 06-15-2024 Monocyte distribution width Auto (Bld) [Entitic vol] Monocyte distribution width [Entitic volume] in Blood by Automated High 0.00-20.00 [facility] Comment on above: The predictive value of MDW for identifying sepsis in patients with hematological abnormalities has not been established Monocytes Auto (Bld) [#/Vol] Ordered By: Gely Lin on 06-15-2024 Monocytes (Bld) [#/Vol] Automated blood monocyte count High 0.0-0.8 [facility] Monocytes/100 WBC Auto (Bld) Ordered By: Gely Lin on 06-15-2024 Monocytes/100 WBC (Bld) Automated monocyte % . [facility] Mucus [Presence] in Urine by AutomatedOrdered By: Gely Lin on 06-15-2024 Mucus Auto Ql (U) Mucus [Presence] in Urine by Automated Abnormal [facility] Neutrophils Auto (Bld) [#/Vo l]Ordered By: Gely Lin on 06-15-2024 Neutrophils (Bld) [#/Vol] Neutrophils [#/volume] in Blood by Automated count 1.8-7.7 [facility] Neutrophils/100 WBC Auto (Bl d)Ordered By: Gely Lin on 06-15-2024 Neutrophils/100 WBC (Bld) Automated neutrophil % . [facility] Nitrite Test strip Ql (U)Ord ered By: Gely Lin on 06-15-2024 Nitrite Ql (U) Nitrite [Presence] i n Urine by Test strip Negative [facility] No Panel InformationOrdered By: Gely Lin on 06-15-2024 Estimated GFR (CKD-EPI) > 60.0 mL/Min [facility] Creatinine Clearance (Chem 50.06 [facility] Nucleated erythrocytes [Pres ence] in Blood by Automated countOrdered By: Gely Lin on 06-15-2024 Nucleated RBC Auto Ql (Bld) Nucleated erythrocytes [Presence] in Blood by Automated count 0-0.5 [facility] Platelet adequacy [Presence] in Blood by Light microscopyOrdered By: Gely Lin on 06-15-2024 Platelets LM Ql (Bld) Platelet adequacy [Presence] in Blood by Light microscopy Normal [facility] Platelet mean volume Auto (B ld) [Entitic vol]Ordered By: Gely Lin on 06-15-2024 Platelet mean volume (Bld) [Entitic vol] Platelet mean volume [Entitic volume] in Blood by Automated count 6.6-10.1 [facility] Platelet morphology finding [Identifier] in BloodOrdered By: Gely Lin on 06-15-2024 Platelet morphology finding Nom (Bld) Platelet morphology finding [Identifier] in Blood Normal [facility] Platelets Auto (Bld) [#/Vol] Ordered By: Gely Lin on 06-15-2024 Platelets (Bld) [#/Vol] Platelets [#/volume] in Blood by Automated count Low 150-450 [facility] Polychromasia [Presence] in Blood by Light microscopyOrdered By: Gely Lin on 06-15-2024 Polychromasia LM Ql (Bld) Polychromasia [Presence] in Blood by Light microscopy [facility] Potassium [Moles/volume] in Serum or PlasmaOrdered By: Gely Lin on 06-15-2024 Potassium [Moles/Vol] Potassium [Moles/v olume] in Serum or Plasma 3.5-5.1 [facility] Protein Test strip (U) [Mass /Vol]Ordered By: Gely Lin on 06-15-2024 Protein (U) [Mass/Vol] Protein [Mass/vol ume] in Urine by Test strip High Negative [facility] Protein [Mass/volume] in Ser um or PlasmaOrdered By: Gely Lin on 06-15-2024 Protein [Mass/Vol] Protein [Mass/volume ] in Serum or Plasma 6.4-8.9 [facility] RBC Auto (Bld) [#/Vol]Ordere d By: Gely Lin on 06-15-2024 RBC (Bld) [#/Vol] Erythrocytes [#/volu me] in Blood by Automated count 3.90-5.60 [facility] Respiratory specimen influen za A virus, influenza B virus, respiratory syncytical virOrdered By: Gely Lin on 06-15-2024 SARS-CoV-2 (COVID-19) RNA SHARRI+probe Ql (Unsp spec) Respiratory specimen influenza A virus, influenza B virus, respiratory syncytical vir [facility] Scan and CBCon 06-15-2024 Anisocytosis Ql (Bld) Moderate Normal [facility] Comment on above: Performed By: #### C [place] [address] [facility] #### [facility] [address] Basophils (Bld) [#/Vol] 0.0 10*3/uL Normal 0.0-0.2 [facility] Comment on above: Performed By: #### C [place] 19 [facility] [place] [address] Basophils/100 WBC (Bld) 0.4 % Normal . [facility] Comment on above: Performed By: #### C [address] #### [address] Eosinophils (Bld) [#/Vol] 0.0 10*3/uL Normal 0.0-0.45 [facility] Comment on above: Performed By: #### C [address] #### [address] Eosinophils/100 WBC (Bld) 0.1 % Normal . [facility] Comment on above: Performed By: #### C [address] #### [address] Erythrocyte distribution width (RBC) [Ratio] 17.6 % High 12.0-14.8 [facility] Comment on above: Performed By: #### C [address] #### [address] Hematocrit (Bld) [Volume fraction] 36.9 % Low 38.8-50.0 [facility] Comment on above: Performed By: #### C [address] #### [address] Hemoglobin (Bld) [Mass/Vol] 12.3 g/dL Low 13.0-17.0 [facility] Comment on above: Performed By: #### C [address] #### [address] Hypochromasia Slight Normal [facility] Comment on above: Performed By: #### C [address] #### [address] Lymphocytes (Bld) [#/Vol] 1.1 10*3/uL Normal 1.00-4.8 [facility] Comment on above: Performed By: #### C [address] #### [place] [address] [place] Lymphocytes/100 WBC (Bld) 15.5 % Normal . [facility] Comment on above: Performed By: #### C [address] #### [address] MCH (RBC) [Entitic mass] 29.3 pg Normal 27.5-35.2 [facility] Comment on above: Performed By: #### C [address] #### [address] MCV (RBC) [Entitic vol] 87.9 fL Normal 83.5-101 [facility] Comment on above: Performed By: #### C [address] #### [address] Mean Corpuscular HGB Conc 33.3 g/dL Normal 32.5-35.6 [facility] Comment on above: Performed By: #### C [address] #### [address] Monocytes (Bld) [#/Vol] 1.2 10*3/uL High 0.0-0.8 [facility] Comment on above: Performed By: #### C [address] #### [address] Monocytes/100 WBC (Bld) 27.32 % High 0.00-20.00 [facility] Comment on above: Result Comment: The predictive value of MDW for identifying sepsis in patients with hematological abnormalities has not been established Performed By: #### C [address] #### [address] Monocytes/100 WBC (Bld) 17.4 % Normal . [facility] Comment on above: Performed By: #### C [address] #### [address] Neutrophils (Bld) [#/Vol] 4.6 10*3/uL Normal 1.8-7.7 [facility] Comment on above: Performed By: #### C [address] #### [address] Neutrophils/100 WBC (Bld) 66.6 % Normal . [facility] Comment on above: Performed By: #### C [address] #### [address] NRBC% 0.1 /100{WBC} Normal 0-0.5 [facility] Comment on above: Performed By: #### C [address] #### [address] Platelet Estimate Decreased Normal Normal [facility] Comment on above: Performed By: #### C [address] #### [address] Platelet mean volume (Bld) [Entitic vol] 8.0 fL Normal 6.6-10.1 [facility] Comment on above: Performed By: #### C [address] #### [address] Platelet Morphology Normal Normal Normal [facility] Comment on above: Result Comment: PERF ORMED BY: [place] [address] PATHOLOGIST SANITATION DIRECTOR SHIVAM CORREA M.D. Performed By: #### C [address] #### [address] Platelets (Bld) [#/Vol] 134 10*3/uL Low 150-450 [facility] Comment on above: Performed By: #### C [address] #### [address] Polychromasia Slight Normal [facility] Comment on above: Performed By: #### C [address] #### [address] RBC (Bld) [#/Vol] 4.20 10*6/uL Normal 3.90-5.60 [facility] Comment on above: Performed By: #### C OVID 19 [facility] #### [facility] [address] [id number] [facility] WBC (Bld) [#/Vol] 6.9 10*3/uL Normal 4.1-10.5 [facility] Comment on above: Performed By: #### C OVID 19 [facility] #### [facility] [address] [id number] [facility] Serum or plasma albumin/glob ulin mass ratioOrdered By: Gely Lin on 06-15-2024 Albumin/Globulin [Mass ratio] Serum or plasma albumin/globulin mass ratio [facility] Serum or plasma anion gap de terminationOrdered By: Gely Lin on 06-15-2024 Anion gap [Moles/Vol] Serum or plasma an ion gap determination 6.0-15.0 [facility] Sodium [Moles/volume] in Ser um or PlasmaOrdered By: Gely Lin on 06-15-2024 Sodium [Moles/Vol] Sodium [Moles/volume ] in Serum or Plasma Low 136-145 [facility] Specific gravity Test strip (U) [Rel density]Ordered By: Gely Lin on 06-15-2024 Specific gravity (U) [Rel density] Specific gravity of Urine by Test strip 1.001-1.03 0 [facility] Urea nitrogen [Mass/volume] in Serum or PlasmaOrdered By: Gely Lin on 06-15-2024 Urea nitrogen [Mass/Vol] Urea nitrogen [Mass/volume] in Serum or Plasma 7-25 [facility] Urine Cultureon 06-15-2024 Bacteria identified Cx Nom (U) ORGANISM: Enterobacter cloacae complex (O:ENTCLOCPLX) [place] Count >100,000 Aerobic [place] Charge (NMIC56) SUSCEPTIBILITY [...] RESISTANT TO ALL B-LACTAM DRUGS. PERFORMED BY: [place] [address] PATHOLOGIST SANITATION DIRECTOR SHIVAM CORREA M.D. Normal [facility] Comment on above: Performed By: #### C OVID 19 [facility] [place] #### [place] [address] [place] Urobilinogen Test strip (U) [Mass/Vol]Ordered By: Gely Lin on 06-15-2024 Urobilinogen (U) [Mass/Vol] Urobilinogen [Mass/volume] in Urine by Test strip Normal [facility] WBC Auto (Bld) [#/Vol]Ordere d By: Gely Lin on 06-15-2024 WBC (Bld) [#/Vol] Leukocytes [#/volume ] in Blood by Automated count 4.1-10.5 [facility] X-ray reportOrdered By: Abrahan Murray on 06-15-2024 Study report [facility] [place] [address] [place] [address] XRay Report Signed Patient: Fani Chua MR#: [id number] : 1935 Acct:[id number] Age/Sex: 89 / M ADM Date: 5 Loc: ER Room: Type: [facility] ER Attending Dr: Copies to: [...] Trey Murray M.D.06/15/2024 2:41 PM Dictation Location: [employer]skills Transcribed By: HENRRY 06/15/24 1441 Dictated By: Trey Murray DO 06/15/24 1440 Signed By: 06/15/24 1441 [facility] XR chest 2V*on 06-15-2024 XR chest 2V* [facility] [place] [address] [place] [address] XRay Report Signed Patient: Fani Chua MR#: [id number] : 1935 Acct:[id number] Age/Sex: 89 / M ADM Date: 06/15/24 Loc: ER Room: Type: [facility] ER Attending Dr: Copies to: [...] Trey Murray M.D.06/15/2024 2:41 PM Dictation Location: [place] [id number] Transcribed By: HENRRY 06/15/24 1441 Dictated By: Trey Murray DO 06/15/24 1440 Signed By: 06/15/24 1441 Normal [facility] pH Test strip (U)Ordered By: Gely Lin on 06-15-2024 pH (U) pH of Urine by Test strip 5.0-9.0 [facility] Coding Summaryon 05-19-2024 Coding Summary HTMLBase 64 LgockbtqIPf6nRy+PGhlYWQ+P N8PICEyN99ufCWlnU7pC1UYWQ lOSywgQVBQTElOSyIgbmFtZT1 kaXNjZXJu IC8+RE8bJGTvOthbnGAai5Y4d SD4T46jyc0pSTklrRL4BCWvGx Qooqpcl1hosRn0SAxwKsymJqA t MZDvvK98MUP5hK57Ew80yUHdr VIpd9rszEg5XpJxPESjXYO4nP esEEshu8ZsBAZhK87kiBCoi1O 6 UWGzvAavyFLeAaDzrRH4lP1nK Pbdwrebh1rvffelIfd3jt16uP Uva4C2qRS6V5JamhM6MDIdxNF g BtiewEUYeD5vrygny8vnvhdtR wQyELShPJl8NFl7YDKlgDydHg YgJC15TYC0GMAwswEqD6NsNSS s jXpoHjC0e6Z9Na4VJ4AVEtcrT 1VNTUFSWTwvdGQ+TI48sz61X6 JiYqipDvm5AXWcFZY4zLB5eL0 n DMRpPVllo2K6pSB6G8HrqoEyy s4vk9uaCWEjJPstK51enWMau5 Y8SZNnuIM6XJKsvYtjSeBijL4 3 Oyc+ALBtyDyni8LrSmqwg4zle 9ukaLn9PbjaUCKfkuZbtAocOI R5c8GiTi3vYBVxwAT6vBS9oW6 i SnRtUdY9WJytQ932KaBhbKDwM zzcV64vG3BfxWX+NBDmFac9BP PeiQgsUH2rU9DpPOYzkicpdJH m iZocOJ9fKFBbvqnfOGVjoL0bW SOlO4f1YeLqHfS1RFzcF3IxRY MxydudYw33tZ3qWkPvJtG5UQk u C2ZwgcD4MXMhdDIjSRrvYPK9O 25gg8D6RUMyTHNaPYZ5fDB0fH 1hbGlnbjogbGVmdDsgdmVydGl j TBbiBBacI398VWAcmXfjSkDsL GluZyBEYXRlOiAgMTIvMDUvMj AyNDwvdGQ+CIAuTBK0lJimRHF n rYXpRZnsXu5vtAbbwPkrPU2eX EJkaaflEIMgzL8wWBGvuKKutP dcMZ7bQQPviphdm480QcJjLVA 0 HLKqbBXgB6ZkgX2gZvYuPEIpA OHdE1RypDJcUQqmI497YVyfIj T0DBLhbmNrA6TzGEDwaSocAxC 0 o5O6Vn4Lw8JugusjP9HshFUjN mAlVcnaNTc4J1SeNswqpGS+PC 05MNOlHQ67CKx9PNG7oZjhZTh i ETVjM2NdfU9wUbPxRQZpOWKrN yc+PHRhYmxlIHdpZHRoPScxMD AzWjUfjZkiPD3uZe0lTMDlZMH v sHwjdWSjYmIxz4otPQQaYKekD J1kpPuiP6XjjOW6WDPgh8r2Cd 39S97aI3CouLP+CGDvcIW7fXY 0 yC9kZeFoNaJ3ZIzbA657VjVpz MDrXchqe0tad6vtlJb2LtR2EO WntoVrmXxwJUP6i3EiCr01I85 s IHdpZHRoPSIxNSUiIHZhbGlnb l6uyL0mTl2+IWMpoNM4yBA5jR 3nEiDkZfY2QIrpK633AhXlhUW v Iigbp5gci2losDm0WuVkPKLal iVaaBvhQXU0w4NsYr76Y6QucS ogc1JjHiu9wd02lQYos7R4tVZ 9 C1JzZYCvuflbwCXakOzrSA1pI GNxmhowLWPtxI6mVUYlU2o2Ax NbQcN0RIdaF7SslmK4IGAbbCD g SFPvzQTFpB0hayowl9kvtvtnG cVjVIDhVHu6YEj6PMOjyStnBy LhRHD1OoR4GEU7pGRrkD7mdPc n yjlxaG6zRfh+UYD4tRFnrQPVW N1aWavwiTC+FLKyLGX6bRqfWC pgSLOwdC9qEBTbS3z1FeExKhD 1 WUdsM9XhfsQ3AYEylWNfAGCwa XBUwE5zqunkn0mczorpArDcFH AiUXg5RFa3DFJrwJxnIyGxHIN 0 CqX9UNH5mKRaxY1xyEyxidfbv G9wOyc+YldlkIafBBK8TVe8X2 UoWki0PSSngRuoXB2knIIyHNi u Zk1btBeyoQliYW7jYWLlwvano 993HgYel5wfGFQkeSLbDCudUV T1U91kx1J7CFIaBUPxGTB2jAW 4 qI2eyDqkpbdioWUvzRdqtpSoo YmuXUfvPJbvW800KYScnQtcEm DrPWw4Z5TqGqs9AJNfeVzwQU4 n hQSmDOebRz5dhGyqtWuzOR4qT FWlvwfbt769FcWhd2igAJGjiJ SvGZtqGUQ5J22nr9K0FRDkFEV w TRZ7pKT3uH3zyPtmdzevaNGfz YncxqFarCkbJAciBUltO488WT DmqQlhMtZhaPk7G5BySzy7LSG z sGzmUV0flYUbKVkuBv9ddGnbh PpcQD9gLOVcucqpg851LcPvp4 kyZSUrnYIjSXgoNZT2U58yu6L 6 EWUkQUMfKMM8gSK9tB2elLcxg jogbGVmdDsgdmVydGljYWwtYW wjM458NHBxgCpfHkFlaKehlgH g AZqtHDe4C5AlYevyaSG+PC90Y NAsNN45oEYsoLZru0taaDv3Nh NrKCJmHGG5fPmyXEzht4LwEVC t D25vhROsr0R8AEWwxEahlHNjJ vPwnFI8gV5wVYfpauvlk6faap moKcytc0tldx66uM64F71vWRv p ADBnUEMuNKXcGMCupDhemv4es G9wIi8+VOUncNV2gOO9oS4zTJ DgSpP9WVanJ274YnZldDWdNdu j q2bfl2qsyCb2AaZ8RKJqjeRua MeyBBP8p8BzTr16Q25lJHiaSP WoSPMhETEhENWrpRnhnh4kwQ4 w Ii8+BABltJQ4rEE5fO8kUzJdP qT8KZlrK668ZmTjtRBcYdivR8 9dF0IlbHK+SGDiHfj3VVZrvTu s EM8ypBBxTXooJj4tLLC5JyHjA xPyXPphZ5BcZYTgjqwdenmexH I8PWXqYKIaaH87Dc8gqMxsMLK w cIVVmY0bjlogm1icwyzxDmZhV WAtKHi4GWg1RLHvxIxlDzYyGE Q9NdX3WKP2uMMybN8wgUjorwh g kS5eK1IrKMZqmqdjTv14oF3yJ xCmEuB4SArwAql+RklTSCwgSk FNRVMgVzwvdGQ+JCDgIJG4jXe l HPyyQRJhmT2mPQWjN6m0OdCkH zD5PCvbV7TdAIEvbkzbCe91aG 9yMgSwLeY3BBqsK6ArwuY5GJP w bWNkONfbGMQ2C66sw3I5SRUjA BYqUBJ5iBY7xB0rdUmorkcvcP UnaYcvbzFszAeiIAusSGgzK89 6 YVBtiYpkAaZsDhM1PtP9ZwO8U 5ZnFkn2AYJgrCdgIS9cxBDfBI bhJe0cqYgrmDnjWC3gDIKcvyg w WTZvsI1jULPwyIXniMqcGS2aB AXaoiheo887AuEdAEW2JLKhvF SdD3IrrQ8gNaClVNAfHDStE2B l sPYvYHwgK362CKopCdP8ADLuf qOjP4MzLLJwdZwnLuG5h8P5Or 44NyBZZWFyczwvdGQ+PHRkIHN 0 sAjyHEqzGNXfwX1tPXGmV3f0V sPqHiB5ZAyqW0NxTSQmubnbQg 27uC3vQiSlSwF4LAzkI1JfewU 6 BVQrdEKpJMaiBBP5K26wl5S2M LPvSVLnPWP4hNL2qW1bhMixwv ogbGVmdDsgdmVydGljYWwtYWx p Z551VOTkkRwxEl5LPKB7B4ZwE cf8YXFelFdiWK2cyLQzUOetLn 0kbZblbRjtYU6lNZBbikqhFIU k bO9vUMSoyCGdiTwqLH7wSORys jzem126RpDrKSG8TFDhvXQcB6 RosV5rQlLkTIQaFJOkN8XqgXR t MAvcX886VAcvKyG8VBQjdpOgG 5NnXVTyzOcmYnB9i1W1Rt1KBI wvdGQ+JM58bo59V9XcByktRme 0 KNXlTXQ6fDP6bR0bLNRzCFjoj 0Z2fYR9F4QgscOwfm0vu0dgGF NhMNicF99rdPRni5T4EKLnqTZ 5 QXEjvXxxNbFtuP45Ulg+PGNvb Yusj3SdKyaqp3gng0fjwGz2Vj VnPGBexdOkdXdbSXO8g9MkWs8 8 J71zNRqrSCAyNNNyPEOsXJQqh Nxeen7nbM3sJf3+APEvsWN3mH K3qU9pWgWyLpT3FZcbF046KaV v zAWhFczpd8zco3okyPa9CkNzC DMjjtKlaPakVCR4u9PgMb17M3 ImsBpxs4YjJmy2yb29cKOlp3X 5 pFZ7V3DjTZJquchzaZOlrLasY M7pMRUaczinHKCmvW1tLXXuK4 t9KxRbCiV1RUbcA9XgqlV7ADB v mLPjXESaeWWGdW1jdpdwq6rhi uchBzAfBLBzUBw6OIc0OKBblT xyWrBqHVS5ViZ1SRE2mVXcfD2 h kQeuyxnlbK7gWwy+CIq1j3qla JXgVR0vaKT9FV19CA09zKJgg0 G6wPH3E2KvBVPdmpwkrbvuiUL 6 QJSzPBTtwH83Zy3wvBotTm6qE LLbRFC2LWDdbAItB1RfhG5nQp KsBSWhHDPbJ3QisOTzVOhoQ75 6 SWctElE8RUFqhkThB1MxMZEhb NtpLnV9h0V1Yf0BGX20CY98AV 38dWTxf2B9mCR8R7SgSEVrqeh t svyohQU7QVRiMURgfO60Vb7wc HtnXq3zKITsDJT2DPDurYKtO1 CnvO2fViMzGEFrSMRyG7ZxvGO t PRqkI351OSbvYqZ2ONThedHsN 1BmAGNdyCqhHrQ4z8C5Mj7BCe 57IM94XT65lJZkm8W7uHA6N4N h SRLykxonaduwfWV6CAVeMKScx B33Ec0dbXlpIp0uFSCcBNX2MZ LejGBeW0ZtaH6iHdCkPXWqFKW w C3JkySXuWEwpP424ZNduJsI1D XRszgZqP3NkGCCakRtsIlM4c1 P8Jn1SSHliqts9E9KeQzfshYR + ZI40MLXqGJ82tXAqhSRmt5yan Dz4GdKeYBIhEGC3pBjaFAvtw9 BuDBRmA83rpDUcz3G6OPXkeQy h cHN (more content not included)... [facility] Coding Summaryon 05-09-2024 Coding Summary HTMLBase 64 RhygjtxsRKg7tHb+PGhlYWQ+P C6QSCGpJ78vfSQvzF5pF6GFXP lOSywgQVBQTElOSyIgbmFtZT1 kaXNjZXJu IC8+RL9aNJWlPbuquCPnu1L0a BC2O80pex2yUCvgnFY1NLSbWb Qzkynya6lftSk2TLkuXcbaQdM t ORMthB61OFO9tA04Bj22rEXvm EBwu5zcwMm0KhXlYTZnRXP2mO zrKOpym4CxQCDaN55ycPIey6Z 6 WXYclOzelKDmItDauIF6wR9bE Pfasydfo1ketpvkWrc1xz22oB Lky2Z5xNE9B7JgipM3CHRxpJT g SjvhiCFUkE5frioja7dlcxktH iEaIVXlIVo6NDx4NCEvmZheEq KzLQ17AAI0DASccoUlU9SqFJQ s hTjkXzR6y1H3Zl2GZ6XSXcwbO 1VNTUFSWTwvdGQ+LE13dq83P3 FfFzgoYnr1BCQtIWP2mAK8gK3 n VZLiJOamn4Y8aNF6H8GhlcMid l9wy0bsKEYpMBokM21gpWRcj1 K8YXLlaZU0ZCBpxFdqQsOcrY9 3 Oyc+VRXrhKrhl2QnJcmst0aii 4asiGj8CxmaYJDosySakKuyKQ H5p7YyZy1iWWOygPD1sVD7kP4 i FbQfAyQ6XUymP400VwBpuPHlI qosN17rT8XdwZG+SSBmFvb2GV FfvVsqEK2eZ9ViBKVcxlqlnXV m aBrsZK2cWQIvlhdaLSPlaQ7rW WAeN5h8ZhXwMiE5TTpwE4CuHF WwhsbvZn70sL3mKsKnLmK3QNk u C7WqjkO3JACteTXrLUsmSAO8X 14ae1A7JCUkPYCpPMB5hHC5xJ 1hbGlnbjogbGVmdDsgdmVydGl j BHumQAutG865MIStvTecIiCfC GluZyBEYXRlOiAgMTEvMjUvMj AyNDwvdGQ+BKSmIMC7fNkiJZG n hPLyMUnqVo3seQzkeWcsNN5gP HCotjagBOPonP8tQGLstREsrB ngJK8dORRrdaxef511OlGwDQH 0 UESwqDXoH9ChfH5wLmMaMSGdM OTaW5UadDVpAQnzE066EDvaPm J7KJZyacTqM0PmDHGsuAhyBfF 0 i3U8Rp8Bj9GsmmaoI8NvdGRaK hIoRipaZHa9L9GzXhaudAL+PC 43ISRmCJ35UDc6NWN6iFuqEYv i SBXeV8ZkcT9pDjWtDQKqZBKgZ yc+PHRhYmxlIHdpZHRoPScxMD XnZxWucGzjMV9bHc2yJNZbTWD v sPymoCZhBkMxx9viYFBlRGrjC M3wqMovY0JwhZU7BDUnj5a8Ge 71N81eL4IoqUB+NBUfeWV3tAP 0 mZ4eGuAgGmG9SXdbF119YoNfr YDcQfhxt2osb4xhiAp5BuT7ZI UzbyVsnVnuSKC5e4WeIx45W52 s IHdpZHRoPSIxNSUiIHZhbGlnb e7izN4aPq8+ECEtcYW3hQZ6tH 8iOmGgOwV6SEvhD637XeCweDG v Gsalj3rya2zqoGl4YdHnIOOsh wQqfSjbUCT3r0ErWc54D6XxqH src1JvFbq9iz86mRFoj3Y4oQA 9 S0XhGJHnrefteYHjuAufZW5tT YDxyznlNZAwxU3xQMUkG8g0He RkQaS2ODrwV4LiryA3HUKthER g QVSodLLObN6chsrtj3vvjcwdJ cYcUANcICi7HLt4HYLbsXdfAr VkWXE3JnA6REW7eLTmyJ1dlKu n jxilyN0tAff+BOP5qFGvbVTGI F9hOwvtnKS+TGDyPZF0xQiqXW ieCSPksF4eDUMjL7q6MmCiJoD 1 IEhfU3XfgnP6JHGdpYMtEWMjw ORWzC4ysfzbn8upitdiKrLlFX SqJIe1ALg0WYGgyCzeGuPfCMY 0 TlU3XXL2dWFwsV0fkBbvnysjc G9wOyc+FgcjwItdPPI7YMl3B3 TeZwi1VNBdyZahWT7xeOVjVBx u Qx7lmEtltHrsCJ1gHSZivdnow 220GoSlh4roIVCkeBCqBTodHQ R7T11ny3U5MLMfMOJwWQH1yRV 4 zY5mpSzrdmngtIFnoOjxcmBmv DspBJexEQvjG840EHWosPehXa AiNDk9A0PcUyo6QSZinCqwVK0 n aCDiXKbzAs7opIyemQijRO0oP FWrlzgyv117ZuUeb9nkSDMmdX FmMCsbAOX7G53oo9T5JZQuVEQ w BEO4mPS8pZ1tfOyhluqctXBhq LsnsxJrrHciHUdcRCwhN924SZ SvhIryGrBlaLw3P1BoKwn3KKZ z iLkvFC4fbWWkWLrrWr1lkDklj LtaVU2tDFEeehwlj271CkYsx5 mgTYVzjEIvEFwuYXY7Q35dg4F 6 GUWnISAhTGE8vOI9kR4usKvuq jogbGVmdDsgdmVydGljYWwtYW swK117JAKehUigSfFeuUzebiT g QOsgCWo0O2XnBasisBT+PC90Y DZrHQ25zOWjuSNfj7idrGp5Nb ReYHIpHVJ1fGhfGPcst7FdCVT t F53omZBrh9K7ETNgbDvndKNdY zQobEZ6eL9hIWadsyaxg2btyy oiPxdcu6msdf31gT49X87kFAk p MKVhPEIrILXyNBFciJdbco7uh G9wIi8+XDDmkBU3aJL5aH0jBR VpKjE8FUfdY489XiQlgJQdPna j m3ksj8lhjQq3XvK3PFFkudHnn CdzTUE7p8EgGu07S19dOAelGO AgQZOgZHJxPXVrfPwwfm1zoF7 w Ii8+WFQiqHM6iQV7oX2oMxHeO oT7DLpsC542WsMmjKFyGizqR1 7lP6UvxDQ+YZUvXcv2BIIaqMl s BQ7weRFfAGlnOf3tFBD0KmQqK qAeXVrkL1WpVYQxfsutqeurwJ P1KIVyKTCebU46Uq6wrAjcCGE w qLLBlZ1hiamsx5mndkhqRaZiV VRnIUo6PVo2YRYckBbsYbHhDN C1PrW7KEL0jTVovV6saFbmqee g jJ2hJ3IfZJUohadbIf34mY3hA qQrIuJ8NVakTdf+RklTSCwgSk FNRVMgVzwvdGQ+NCAgAKI8wPo l VEuqGFGgkF2lMJDnE2d2HdEjJ yR9CFsnD0FpBSBsczzmTz13uT 5rPsMiKqU6EWduM3SkauV2YIP w oXTrIPgkPQK9A84vd3B2IFWvK VPeWHS4pCH7vN8gsBftngkitS EytUqdnbQckTikXDnhRQmkB15 6 DOZxzBhmXrYbYvW4ZsV7NzP4R 9NgTsr2IIWosAweZM0qoIIcXW jqGb5utBugxYgfHC1lZWEnknx w GKFovN1tXUAiuPTbnGhpKP4iP CBnjmiwh647IcJiTMX5AOXmoH ClB7XvoW2sSmCsSLUcWGLzX0A l nYDnUQtrN882APrmBaB5SLCtr fWwD0JdVNIilQmbSoD4n6G6Aa 44NyBZZWFyczwvdGQ+PHRkIHN 0 xKjaGYzdPVOriN9wBPYmI0e2N eDvCeZ8CDufP1AnTQYkcwzhFd 95hP8jOpDyCvY9PJjeF1DqcoN 6 UNQqeNMwDDaxSYK0Q29kt7P6R MGgMHWiPVM7vZI2rB9yxDomle ogbGVmdDsgdmVydGljYWwtYWx p C825XYAzlRnnCl1VCTL4D3QqO cu4EBFgbQaaWZ5ghZYsBJwgKe 6dxDchdRjnBZ4cKLKfxbdiBVL k vX1dEIFbuPNalImpIR7zFQDfv fbek259KpIoZCA2NLJdxLCrF2 SpnV9pYqQuBOLgWZKbU9YwkPI t WYqrI480LJiyOvK2ICZhqkDpX 0JfRIZnyOlzUoY1s4G3Ge3CYS wvdGQ+HF81gz08M9ExDvxvZaq 0 TTUqVZG2cSK8tL9bQEKpXOjfr 4N4wLT4Z7ZjruJsek5iy0agJW WuSBcfI13zlKKaj8I7RQEkhCJ 5 QRObnYtkWuRgfV77Srl+PGNvb Czeb3CyZhksk4dua9zvcSm4Wu ZxRFDqhjDwnTusAYD2f9AiXv1 8 E43nMWglHEDaLKMwQDDcLXDaq Iaejp4kfU0bBy7+IUEwyAI2dM Q3lX5wLdJtVoR6GZqyN240NyV v oLUmOfyjz9tfx1dlhZj0ZfQaJ QPvzsKviSyxJLB5n9HuNd48D0 UbfFokz6TdJih1bt24mOWgt1O 5 zDV9H6ChJYHtwjeunNAnzBkfR F4zQHHssbkrDNElgW9uHLQfN0 s7LvPaItW9MDqiD4ZnloH6QLL v cQDaWNOtkJPHyT0vyebjj0sjj etkYhIdMDCmMSt1KKj0RCHvqV anPdOwBEL4ZeD4IQM0qJPehF5 h wMikthgkxE3gHsg+SBn9q8qhk HIeHG1tqRG5XS00AY47fZAqr5 Q1dEE8Q7SfQJEqsfgmlbkniEE 6 NRRoXNKqgB45Fw7yhXfmVv6pQ XKeGKX0BAHnoQXlM8XzwS0iRr JmTOAdRCRyA3GjiHFjIDvqS07 6 GLnoVlE8ARSmqmNfL7FxCMKyh MysVeM4u2A3La3VIO95FB86FZ 42tFHij2E0qRF9G7FgSOXpwxm t frywjDX8KPBsHJGbeF84Kc6oi DpzLs5wHFLkSXM0LIEydWDmQ8 NseB4qMzCzYMSfCMRxB5KmnZT t JZelC283EVplEgH8DVYhfdBnC 2ZnLYBonJspDsJ7o1N8Zz9VKv 70YJ38DD08jFDjn9X0pEZ0A8Z h QSRillpzupwhoMM0OACzVZLwq O99Te1dsZeaPd4jVRNaPEV0EY SmeUFvP1YyhN1sEuChKBCsCDC w I2VytIAxTCuvU503ASwvKyV5H TJcgvFvD8KaJMSngRbbTsC2n3 V8Df6YDRqcmlp6Y0DoCgsluNI + MP21GQXlXA26oEKrvCJkw8kza Vf6DgQvONGaCQI9kTnhHMebc0 FzRDVrB77waRWda5M5EWYycDu h cHN (more content not included)... Normal [facility] Basic Metabolic Panelon 11-2 Anion gap [Moles/Vol] 7.5 mmol/L Normal 6.0-15.0 [facility] Comment on above: Performed By: #### B MP ####[facility] [place] [address] [facility] Calcium [Mass/Vol] 9.2 mg/dL Normal 8.6-10.3 [facility] Comment on above: Result Comment: PERF ORMED BY: [facility] [address] [place] [address] PATHOLOGIST SANITATION DIRECTOR SHIVAM CORREA M.D. Performed By: #### B MP ####[facility] [place] [address] [facility] Chloride [Moles/Vol] 105 mmol/L Normal 98-107 [facility] Comment on above: Performed By: #### B MP ####[address] CO2 [Moles/Vol] 27.7 mmol/L Normal 21.0-31.0 [facility] Comment on above: Performed By: #### B MP ####[address] Creatinine [Mass/Vol] 0.85 mg/dL Normal 0.70-1.30 [facility] Comment on above: Performed By: #### B MP ####[address] GFR/1.73 sq M.predicted MDRD (S/P/Bld) [Vol rate/Area] mL/min/{1.73_m2} Normal [facility] Comment on above: Performed By: #### B MP ####[address] Glucose [Mass/Vol] 133 mg/dL High 70-100 [facility] Comment on above: Result Comment: [place] Glucose Reference Range is dependent on time and content of last meal. Glucose of more than 200 mg/dL in a nonstressed, ambulatory subject supports the diagnosis of Diabetes Mellitus. ADA recommended reference range Performed By: #### B MP ####[address] Potassium [Moles/Vol] 4.2 mmol/L Normal 3.5-5.1 [facility] Comment on above: Performed By: #### B MP ####[place] [id number] [facility] Sodium [Moles/Vol] 136 mmol/L Normal 136-145 [facility] Comment on above: Performed By: #### B MP ####[address] Urea nitrogen [Mass/Vol] 23 mg/dL Normal 7-25 [facility] Comment on above: Performed By: #### B MP ####[facility] [id number] [place] [address] [facility] Calcium [Mass/volume] in Ser um or PlasmaOrdered By: Bonita Kingsley on 05-06-2024 Calcium [Mass/Vol] Calcium [Mass/volume ] in Serum or Plasma 8.6-10.3 [facility] Carbon dioxide, total [Moles /volume] in Serum or PlasmaOrdered By: Bonita Kingsley on 05-06-2024 CO2 [Moles/Vol] Carbon dioxide, tota l [Moles/volume] in Serum or Plasma 21.0-31.0 [facility] Chloride [Moles/volume] in S aime or PlasmaOrdered By: Bonita Kingsley on 05-06-2024 Chloride [Moles/Vol] Chloride [Moles/vol ume] in Serum or Plasma 98-107 [facility] Creatinine [Mass/volume] in Serum or PlasmaOrdered By: Bonita Kingsley on 05-06-2024 Creatinine [Mass/Vol] Creatinine [Mass/v olume] in Serum or Plasma 0.70-1.30 [facility] Glucose [Mass/volume] in Ser um or PlasmaOrdered By: Bonita Kingsley on 05-06-2024 Glucose [Mass/Vol] Glucose [Mass/volume ] in Serum or Plasma High 70-100 [facility] Comment on above: ADA recommended refe rence rangeRandom Glucose Reference Range is dependent on time and content of last meal. Glucose of more than 200 mg/dL in a nonstressed, ambulatory subject supports the diagnosis of Diabetes Mellitus. No Panel InformationOrdered By: Bonita Kingsley on 05-06-2024 Estimated GFR (CKD-EPI) > 60.0 mL/Min [facility] Creatinine Clearance (Chem N/A [facility] Potassium [Moles/volume] in Serum or PlasmaOrdered By: Bonita Kingsley on 05-06-2024 Potassium [Moles/Vol] Potassium [Moles/v olume] in Serum or Plasma 3.5-5.1 [facility] Serum or plasma anion gap de terminationOrdered By: Bonita Kingsley on 05-06-2024 Anion gap [Moles/Vol] Serum or plasma an ion gap determination 6.0-15.0 [facility] Sodium [Moles/volume] in Ser um or PlasmaOrdered By: Bonita Kingsley on 05-06-2024 Sodium [Moles/Vol] Sodium [Moles/volume ] in Serum or Plasma 136-145 [facility] Urea nitrogen [Mass/volume] in Serum or PlasmaOrdered By: Bonita Kingsley on 05-06-2024 Urea nitrogen [Mass/Vol] Urea nitrogen [Mass/volume] in Serum or Plasma 7-25 [facility] Coding Summaryon 05-04-2024 Coding Summary HTMLBase 64 EmwiuvrhNEe1yCp+PGhlYWQ+P O4YUALiL77haTLftX4lR7GILI lOSywgQVBQTElOSyIgbmFtZT1 kaXNjZXJu IC8+RL2aZIKbYngvgWEhk3P1e DU0Z94dvb6rKZfyrWE5FHEsIw Vxuykjc4sgrCi7XKygZuzmEnX t TCGedX74AUY0oN63Mo99iYNvv SWjs2czuCo0MjBrQVCkFJN1nE olVBsiq0NzSBFbI85cnCVer3Y 6 WEUpxEaexDMuQuZfiNK4dA6bE Cgqomxes6jtkkclSqz1go91eQ Ebw5B8wPS2B8SxzeU2UKVhlSP g ZwtbqLVPvZ1wmyoja7vluyrsY cNpCNNuNQu3KCc0KKTfiMpyQd UjXJ63XNA0PIHuxhCcM1JiFXP s qPkwWtO6a4X9Pj2PN9GBUvqdM 1VNTUFSWTwvdGQ+SD53gy96W7 NeJcesJnf9TTDuKKM4mEC2gQ9 n HMMfQOrgr6O1uWR1S4SljlVar d1np7ncBZSpWOvoA55dpRWzd6 X3PSEtyRM1JROrcBwvTbJgtU1 3 Oyc+CDZzsKgwr8CcWmsyk7klv 2kugVp9BkdaGHZvswRgzWvmYD G9k8YoXm2nLAHuyAC4jJY5uQ8 i JlTqGtP7EJbgS717JvIxhZPlA lxpN73hP8AtdAA+FTAbDmm8MQ EcxKodTC3nV6GdYQHpzbzeePF m kKcoMQ3kRFCuhdltLZJtoB7wH OUpN7c5VoCzXkS0WDklQ9TuTN HmhdueFq47tY5oZrUjQpK3OKq u V3DcqzJ7QFQumWDdAIboVCX3Z 38ha6R9DCDlLXAuIIV2cKE8cL 1hbGlnbjogbGVmdDsgdmVydGl j IEpxQUphS750XRPhaZqfJcXcQ GluZyBEYXRlOiAgMTEvMjAvMj AyNDwvdGQ+MJXzUYJ4mAiyXGZ n pJQyNXvsUb3evVqhnNppQA7jF OJoosntLVDxeY2fPRUbeKEtiC vyYL4mTZNwwedap885RjSaBTP 0 FFGzuZBnX0ZuqH4lVwWiHGLwP MOiX5LsbJQhVHvpE794BMztEp Y2NNPxykJkB5UxYMIyqIlrKhF 0 j1E6Jg0Ep1NuoywzU5WoaTQuB wFyBvkxJBl8V3ZbUrgxdEC+PC 59PRNhSH25VKl0OLY7lNkpHDu i UTUjD0RogU2hQnIpIIZlPZVmJ yc+PHRhYmxlIHdpZHRoPScxMD MdIzDctCjrVQ8kId4sZYMnIHV v vJwxxVGtDsJeg6arYJDjZIjiV L3vlZdmA6VhxAV8PKQbu1c7Jt 79A10nX4VjxXS+JTYpwNI1kPR 0 mJ3iAtDlCyL7OWapP227BeBge GVuHagpc9sja2qinHn4NpD3LI [id number] s IHdpZHRoPSIxNSUiIHZhbGlnb y8khK9pNr5+MBDcqPJ2uSO3jF 7iAhVmBbC3ZKimI585TiKaiDF v Bajiw4inh2ttaTu9MzMtTGYgp tGxgEhgDCC0e1FeEi67N1OviI klf5UaTcx5kz27uFRic6M6eAS 9 J5VrWJAeswyrzTFjuAecWJ9bM XJxovuuTZJppU2hFGTlZ5k7Mt IlIzR2DXrkW5GfmiU6QRBkcXZ g IGVutCKTfM9vjwlbp3jnabicJ iWkFUZnSMd3AIe1YZZxjOawUa NqSPF0UkB1ZHE4nPAarT4fpFs n ofsteY9eMwx+DJF3zNIfuFNEG P2cGtycqXX+PDRqPMF2xFbzOS stVSPloK0mBEVlH1r8RuXeTuW 1 RHhrK9PvhcL9XBIopEQyEPLam LBKuS8jrwspm5ivhspwKmOrEB IiQDa7FMm8OJRzaMufDbAhIMU 0 EoW8ILJ6uDUnxZ1tvOlhsbnip G9wOyc+LzhvvWmmOMF7LMa1N6 FkLsd4ODXfiDelAE5aeFCkXCt u Vl2qkMiaaLzqUQ8mUSFegoixb 676PpXgx7nfMJZhkTDvVFxfEO T2H88oe1J9VQWlOTOpTCN4fLG 4 vT1rvAdlhzizvUJzyRizdvNcy VqcYOcrTKntU944RJRgbZxuRd OhODu0J6UbVuq4ANTvjGyoWK5 n dETwAEggVu3eyNuvxZshDE5uX EVdeiwhv857SgPvg2udXVTteK LwCMplSQL6L23nw0R7VZQcLQF w XHJ5dEO3wN0xqTlqpfvhsXZop HxtqiEpwGaqLRlmASsdK413KP KibHniAbLxoRv9N5XkLtn8ZLG z fBatXX2qnWHhDQylQd4iyEwyw WmhRZ3uPJEgkvqmd570BgBtn4 wkDYYmrWQfNKlgAQA5Z66ij6Y 6 HIRvCJCrWXV7xEO4aM9qoSsum jogbGVmdDsgdmVydGljYWwtYW siJ208ZLBejMxvVmBfhBjwxoL g NRzsLOg6Z1PlUdoyuGN+PC90Y RUhUD49dZSkzYOfs6sliAb1Lo JqYJZmTIS7rFpvSHkev5DpIUL t T02zhXAha0Y3OFDqyZbviCFeB xSbbVR3zV3wQFfhtutmw8gxna rqQtcrc6nzlt13mJ35J36aVSe p TRUiEDSyTKKzUDQmuGtmwg7id G9wIi8+JCZzoHO8rKQ9zN6cPT UeXnF1QUbcH509OiAyrXDuViy j r9gtb0cvsQw2IeI6HNFpcuCfi GyrXWA0q4UlVa03J94gUYqhXP SdOKIxFNSpTOPqjIosir2kvL1 w Ii8+HIKesOH6cNE9oW6rOuYeD qR1VEtqL490JtPsxLJrWjptK9 3lU4BloRH+AJNnYoy4LUKfhAz s FZ9anDBfVNthAy8qPOU7QsJmT mHpJJadN6OxZJNrrrflqfyzfY H2XMIjGYOrcC10Jx5taNufGWA w dHBYoE1bxwwjh7wvxdscGfOzF DVaKPb9NFp9JHCufHjfTbXvEE O0WxO8MOU4iLWdkW7twPtoqwt g wD5oH9WiQVIsglanUv89kW9iW rTtKiX6LZxzGzt+RklTSCwgSk FNRVMgVzwvdGQ+YWZkWEQ1zGq l PZmpZLMtyH0aENKuB1c5BnNoS wV5EZreP7ZvPZLxbagmLb39nQ 1qCnAiTnD8BLsuA1CartQ2DSX w iUGwSZnwSET9F11vz0B5IDIrP ZQtXJQ9bRK2fI3ntQcdczsafA VouYryqdFgdNagMMbeTQilA22 6 AWIjoYfnYpPwQaF2KyP3UwM9R 1NdCjn3TORbuPpcPS3cwTAtTN fiDl4ivQjasXdaIV8uBBMhjhw w JJFibZ3wGIMliBQrrFwqAG9kZ LRhkrodx025QbGaUPU8QQMnhY FhO9XwdB9cPkCkWRUuTFNcG2Q l gQDjGWfnW328KYztTlV4XTBib nKaI6WaMAZgsRqfBrC5g7N8Zh 44NyBZZWFyczwvdGQ+PHRkIHN 0 fPyyYQqySYJbfB0oNQAgM9j6M aXhDjE7HJmyG3HtDELzqpgfLb 72xE6jSiUcIcJ9AGitW8AbzbB 6 JUXrePZwQIzvUJM0K81ny8E3C ILnNLZmESK8sPQ4mU5ycSodpt ogbGVmdDsgdmVydGljYWwtYWx p G059BFMeiRuuNq7LWYV9Q8AjJ es7QIBuwWzaOS2sfCPbOWnxUd 2ogOuhvKuoKY7vLVNbqwhuIGJ k qC0aOHBedHIwyNnmAJ6dVZVmu gtqp836NaMzELY6MRErsWJeT8 QfpK7dBsBhROSoFKLaM7FexJK t JUmbQ459WAecQwR2CBFtoyNjI 4OlYWBznMxgIwZ2c1X1Rf4MSY wvdGQ+VA30xb48L1PoAkdhRir 0 QXLvKXY1nHC7iB8iHRKxJOkqy 0S4eGM8A4IgdcVael5ui8zoOU SnCVsnL11iqMCxt4W3RAMisVN 5 LJPpxVvtCmOroA22Zqe+PGNvb Ewdf7QpTiggp9nzt1kbwDl8Ve WpFMNlqvWsoZesGMR7w8IfEh5 8 N17uTHwjIKGaJCHrEODdBYGsq Zfito3ehI8nUg6+XSWlnXL7dF U3oY9xGvRtYiU6YIovU548CiP v pZObTsjgs8puh8xniRm6KwYvI ZVgssXncXilXHR8b9WqVk99B1 UazWcpf5QqZmh3pk75aNWlc1A 5 kQN1A4PwKHEbvphahPSuwKusM J8qGRSmumifJPMvuQ4bMVSqI7 j2QoYyVlW3BXhzW1DlljP8BAF v qYKsYJTljLHYoP5ualowc3jge yxrWoKdQVVlQVm7XGt6XPDpqQ tbRhDdJBO9AgB0TVC6hTBjhP6 h uPobjrehnY7wYfr+JUp9y7cum WQjFB0kvDZ6TL34AY48jBKkw8 X9iHZ5M7XfFGGettqnhboqyEM 6 THQrGHMqdH37Qi8msCorJp2pW NToGLO2ZBFmjQHjO8OpaG3tMz ExADPcFYWlD5ZgyQVmOGubL27 6 OEwaMsQ3IZNerlPhE4GmQFBxh MugDjS4f9A9Ck9STZ25ME59KV 47mKYty3G3rNO2W7IdCFLphdv t oxnkxLU2OOYfEVSpwU48Qr3va KtuLv8cLTZhHWL9QCZjcJTqS9 BccY2hTpOhMPCpCYEzO8NbhDH t TXuzC420VGphAlB7ECUvieDyP 6DdYHVbkNeiHnF5c7U7If1AUh 76OF09TM35cJEqf2Z9qCP8R9O h BYQktykrxvjapDE6JEKsIOJfu P57Ou9tqXbxFd1eAOAyONL4TR NgqXYfT5CmiA9jYpBcBXZwUGC w F6UphBWhGSojH481GNjrAfB8Y TZlohOtY5BwAUAjdSiwOrY6r6 E4Br0GQKpgkcj9N2XtQjlhwXQ + IN57VPNgJJ54iNWnnNBfm1aig Ws0TkJsVTPbWBL9gBtoBCayj3 AcZOSuB47tpCQbq1C4KZEgvJm h cHN (more content not included)... [facility] Consent Formson 04-29-2024 Consent Forms [id number] FF [facility] Coding Summaryon 04-27-2024 Coding Summary HTMLBase 64 XcwqtwkaYKs1tCc+PGhlYWQ+P T9LGLTdF64oyAPczM7mI3CMGL lOSywgQVBQTElOSyIgbmFtZT1 kaXNjZXJu IC8+MO5qKZMuApyxoJLkf4R4u AK5N30cep0kWTlfhRB6RBFwRc Fvvyiqd8edtHa9YStvCmthHmS t LLZfsS81YRN9iF71Ux40lRBav AMif8qwsOq1KnKoXPZgMEK3zL ytVLhpf9YgSOYnI59xgSGkh6M 6 RHLdiJtbpCDvKjVwfDL5gA9dW Slmlxynb3ixxkciCft5nb54lS Ymq3K5aHN5H0YcvvC6WZYzgPZ g FxtfzQXZyI7drcitz2ptkbavU dRfJBTfIVl0FLu8PXQcfRudUj KbHI31LDL9PSKujaVeX6CtPYZ s uCwmHzK6v7H2Ig7JO0BSWroeA 1VNTUFSWTwvdGQ+VG92fm56V3 WmGnlyUaz3XHAaGYC2pZI5jO6 n LQMbXIlfn8B2aHK9G6OtlhFtw l4cz2kmPIBqDAqtZ78rmXEkg3 P7SHXuiYX4CBIruDquVjRcfC6 3 Oyc+WLBiuOoly4KnDaruo9tfs 5gviEi3SuqnBUMjzdDnaZbjHY E1s8FzVl5jPVSzyZF3bWZ7mG7 i SfSnZtF5KGalX227IeBdgDHlN rylA59bY4XqjDS+LXXpHpx5CR IllXyuMX7yB9EzAECgpjohvVB m gXlhJZ8xHQXrlmwgLQGwfN6zT SVuY4q3NgUkTwC9MMpkY2YnJC OethskNa09bS7lDeXuExF7YGb u G7MchhX9ICMjdXMrAAefQMC8Q 32ks0S1QDSvBUEqLJX7vTJ7zS 1hbGlnbjogbGVmdDsgdmVydGl j SDhyLZlzF098MBUoiEbtFgKvC GluZyBEYXRlOiAgMTEvMTMvMj AyNDwvdGQ+EIPfTYP3tOtcSCU n qUXaAGhfBe8nrSojoJhfGN6bL EBxdssnXMOkiT9wUSLhrQUlfA hmDL2rOSEdzglzd091FaXpBTX 0 ILFirKZdX8WycS5pAyMqJUBfR QLzK5YmpCCaGExgB900YWunCq B6QLKppsRdM2VgQOLpzLjfIoW 0 y1S9Oq1Cu8IceixyO6KupZKwK gCsNonaHCg0V7SeXjoofDH+PC 92XJBpXI00ECf6CXN8kQvrQTf i EITrP0GqmA1zQsNyYZZpRIUiR yc+PHRhYmxlIHdpZHRoPScxMD MlYlArkUllTO9eSz4rCXNwMVO v kTfxzJTpDoScg0ohLDQtAWvgL I1yiOhbI7FftVF1TDCek6f5Po 38K67lY2IoaTK+KAVabJU2lAD 0 eN8lRxRfOsE6AZgmK116SoBar VIjMzdpw4cdt6qtkUr6AgA2HY OrnjTgsGovAHK8o7YxJh22B37 s IHdpZHRoPSIxNSUiIHZhbGlnb z9yaY3aGa1+TFMriZU1iZE1cZ 9hAnFpXiH4UTwjK534TpAyyJF v Acsaa4rtn7pwgUf4SsTuSXSyk uClbKheGEZ0w4EaIz80H1QhoB axq3YgIur4hj01qPCdv3W9gKS 9 Q1LzPKSeigrywZBhvGqsJD5kB RBwhtdlHUJlaV9nARKvA0w8Xm XvDkJ9OJctL7AusbY2PXLkiQR g PIJbcUFCsU5vslxwl7xsklmiP wHdOQBkKHh5EUm6GNMmsKhhIe LbQVS3FhX7UCQ8sAWhwR3veMw n ihyslR0jNyl+HTQ9gUHowJAXQ S8uDujysPK+AILmZHP1gYrqWD iqWWTjtT4iUYKvN1l3OjPtLpQ 1 MUqcE0GljtH5UDRzbODzWHXdh DIQpV9soqcal3ruygiwNkPwLE EqRMq5AVs6PSXtsVzaIhCeURE 0 FjN2BPX0iMNhxF7luLvqpoucu G9wOyc+AutlhTrwAYE5DUr0Y5 AeQex6YSZrhDbeKP5lbGIdWUf u Vv9stMszzJinUS0bEUAohcaoa 695BpIlz6qpKRQtyJKqGJkmJG J4L71eb5N2EDNtUETlWWP7qHC 4 iE6ikDpzgpnvjKWyxAguieNwr VyaSRgkDGlfN943HAQwtZakAu ApJJd0O8PvXhx7LKYyrMjpLH6 n sXJxFAfqFi5zuTqesTpeET0wM YCbsiiug158ZnVtj0fkPNUsaN QbZXlaJYM3C21it8H7FATwWEE w EAB1lEY0kW5kmHsbbogkgJStl PnppwDhtKtjTUafMEecL453UH BrqYiwNyIpoIq1P6ZkLbg1SHE z cYdgZU6ayHFoKOcbIo0rmMnow PayFK3dPRZqdacqh391ScHej7 ztDMXcmGUjLOmdBDE9B04sm2K 6 XKHrPXOiQFR3zQC2tL5xzYjrt jogbGVmdDsgdmVydGljYWwtYW bkQ101SWLzmWwzZyZyxQtqkyO g HXvzKIt2W7KpJglqgDL+PC90Y SFaLS10mQNsyPJim6vbfIl5Vx UqTUFfPHT3wAkqWSfre3TfFJY t L90fhHGbu8K7ZSFzpZrjgTUjX tVfhET3bN0fHOtcjbuar1pnsj rkMjfik7hkyz99iC09Q24aVXo p CIOpFQIxAIPhTJJfiTlkju1lj G9wIi8+KNXeyDE9eEM8qF5kEH SpEmJ1CWtyM981XjOgoBWoTmp j w9ojd5hzjTc9LuJ2BIVabxDyd HqlHUS9f1ZkGh39C96lABesVC DmHSMcLUJsHGGiqNzeih7xoZ2 w Ii8+OSFjrYE8kUQ5dT7tQqIlW yI3OQhvA504AmWruKZoUkogY8 0tG5UkxGY+HDYrUhp4FZOwdGp s ZP3tlEAeNXqeVu7kIOZ3DzWpM hAvAMqdH8MpXEZjrqvhqtldrU M7VETlJMShyY53Cf7ncXadGMM w mZJKcB0wzklsf7dwvahpTvEkN AYkBNc3TTf1EIXuoZpbCiTgJT B1AxD6RHS2tUFagH4ssFxtqia g hC2jH9AaQBJyjqkyMa27aT1dK lRgPnB9HXbePwd+RklTSCwgSk FNRVMgVzwvdGQ+LODvTPX3jMf l VKbrKPXsnS9wNAFoQ9p8DdMqS yB5HKfgQ8YwNRKiqjcaHx09xA 3uChBvZbJ7ZRncX5BvcpO9NUC w rNCcZBipHGI5Y25lp3S8AGAyU DXgNQS1eRB0cT0aqWxvegjrhP ZzhYaencMhxQbuVSvdHRarH73 6 TCSmtFvnTxFbJzE2NeG6MfC7Z 6HxGdt0ZEWjtSclBB2kzLOyXZ ijEp4suUasdUukUZ7oJXDdvns w TZHpuR1pUEKtiJJduNzmYN0pU LNkhkmxt509FlTtXVR9PULkoT PoD6SftF5xGcPnLSNnLNMbX5R l uKCsCZrqG538VGahOaJ3UYNqk fMfX6TfRMJleAzoThH1q0C7Sv 44NyBZZWFyczwvdGQ+PHRkIHN 0 jAmkJUnvYLXgpG2dSWDiZ8g3A wYcEwS5XHiaO9UeAQUqvgjaQp 36pQ3oRdFmYzT7MNmmK5DpnbI 6 ZGAdhLYeSLyuTNU2D60uw8H2D LXxPZJaDAY7mKY0nP9iuBtcjb ogbGVmdDsgdmVydGljYWwtYWx p F464DGUqcBlfGy9CXGJ6B1PpE es5JUOwvTbpGO5lyEMvGCakWs 3klWinuTscBT8iBSRyrhncHSH k sD3pFUQmrIQqwEfwZU2pPTLlr icac848JvGaPXK1OXScmVLpN4 YwrD0oRkYtGJHhRPDkJ0QxhNO t BSutF724NSawYqW4PTMegzUcG 4AxUAPgnDoaYmV1t5Z6Pv0TUY wvdGQ+SB84kl53V1ZuGrmwSdn 0 NMHzJIM6tIN4bG3nVUHyORalb 8A0yWC5B2EjsxEwvi2iv2jmSK VvDDjvQ35phGJyo2U5JRShwQY 5 QOWlhYlmDzXxuX04Qhr+PGNvb Wwso5YdDttqg3qmp2cgmFw2Oc KpXLKvkoTmpBmkFWY0i4UdQx6 8 I99cOSlsHRBgOPNuQFXxELAfr Jxxcv0vjB8vOf2+SJKqvKB2kZ P9bO1qMcPwAuT8DVzhC839MhK v gBXrRavvs0rgf2sahPg4JuBiL UTgxuUysDgdBXI4k1IdSb57P5 UlaRgud2NwMyd6pe69ePOdw1D 5 zUC7Y8MzFZTzwjvzzYCojFgoP T9pFVCtzwadWOOcoV9wMNEwA0 m8YlOkOzM6KCuqS5FinrN9FGQ v mPGhPJKwtZFWgF4nbxmmo3smh qzsAwLfEGDiGIh3TIz4GCRylN qdRnEeWKT3WfJ8GJA1lTRkcQ8 h gEpfppebaL7wVjg+AIh5p7rjm EGuUZ6eqIS7IY92LN13sTJah7 P5wIP0B6HiNFWfdyrkymiqcTS 6 UZFuEXUibK32Af8kvSqmId5dK IBbNHH9QGOamFCvC3EafV0tFr OmOSAkYSJjF6VfrHAgNHahD48 6 QHeaGbR0QQBoqzIkQ2WpBAMql MujFlC3b7T1Ta4KNI43HZ17XE 59eTMip9Q8iRO6K0BkWBBvstt t zkzdbQE4FHAsYNNngV72Mk2gn MugRf0oEXAnVWM1XCLdfOSgZ1 OyyJ1oQkXqALWaBASlZ3CdaGS t TFavO562LDomGzY3QCMuwaZgP 1DpPVKcrQzsZoK9w1G4Jt7VQx 29PU22XM49qJGhn6X1nOX7M5Q h DFUiohehabjkcXI0UMObZECnu M19Jk5doRkeRd0gSWZoXJN5YB FmyTZmP1UsfW1wWdLcGXZnHFG w V0DfeVDuJGirW012QNsiEnR0D EKxuxYiA0EeOCFwxEvaGkT3j0 H1Yk8MTMxkjfm5E5VyMvrnjPN + PE63ZJEbMG91dQRrgJLkr8jkv Oo3FgCyDWMcKZK7bQizSGewf1 FvJFXsH90wrBXgv0D0JFTzdEm h cHN (more content not included)... [facility] Coding Summaryon 04-18-2024 Coding Summary HTMLBase 64 OdmnvggcGNq6fHf+PGhlYWQ+P I5OXRTnY18rnEBzoZ0zX2CRRP lOSywgQVBQTElOSyIgbmFtZT1 kaXNjZXJu IC8+BF2cUAZiBrglxCUoo0F8y LN2K54jel9kHVthaST1JAYbNo Xvdhuyn3fbvHn2VSdbIvhdDlZ t HXKztY47RLN6hT36Ss70zUHbo GIyl9rkaVh7EtDxEAKjQSE2mK edRHjdu1EpIUBcY77jyLAcg2V 6 WTGzwPdyuBYzLjLziYS5pV7rH Euccrgvn4huhzujMmn3ap93fT Sfz2B7bRA7B4RugvG9JOWlsRQ g VfevcMIWnS1tdxdmj9czhnzvR yLqEYRkAHx1DWa3GBRdqLbpEg OnJL91UFH3MAQwngUdR2PyVQM s lAudPfC4y2Z4Kn8LP4MDZzvbH 1VNTUFSWTwvdGQ+CY69an96U6 KlEcsfEvw0FSMdQOX8bKP9bU3 n WYIzPGhlw6Y6iAO9I6LxxdFlw f9jo8kyLBUdTLrsR39muNRaf8 T8EIEfhEX4DNGfgNnyTySjyZ7 3 Oyc+KGGfiYupr4TaNailk2hwd 7vypPe2VfmpQGIjkfUfiMrgCX Q5g9VyEg9vYJSpsIA1kHJ3oI9 i AySfLaN8QMmwR992CiDqbTLxV pppY99nF3FrkCM+RUEzGcw8BF IrhGbbCF9hW0PiIEZxldpxtNJ m fGlzQK7qJZJqofjnFGBkaM3wF EOyK9q3CxPiRcZ1WNrgC5MgGN GvbdvgSl09dQ9kDtOdPjM1HTk u G1NylyU6XXZdmEUuXGwtXRH0J 37pk6J3NLDbHKRqPVE6iFZ5xJ 1hbGlnbjogbGVmdDsgdmVydGl j XDvpEUpuB074PCXmnBddKuPwW GluZyBEYXRlOiAgMTEvMDQvMj AyNDwvdGQ+VYXnUPH8tTmfVAW n bOGxFOqhHy1ngArbtDdhGW0xM OXpkixhBOKifV9qYWTkkKEauG yuBV3yHFLhqinsr978NwOnUWO 0 OQRsiIKfG4QruY9sCsRiMFMoR BCsR6EjrPPwQItaH513VMmgLv B1MMVwsiJbN0YyBOEnsSghFkE 0 m5M7He4Sr1BwrolmP9VixUJiZ yQcRxryXBq4Y5VrXfajpTZ+PC 45PUMyEJ27EAy8DTH8cBbgRPv i XZLlO7YuwC5aQiBwSKRfRFXcE yc+PHRhYmxlIHdpZHRoPScxMD HeBkPvkOrdNV2cSi1eCHSvQYI v tTgwcDRfDvIaz8ppIXHzSKyjV Q0srSsaF2GutLV5YEGzz2z7Dy 39I64zZ3EpjYK+BUDdiBP6wTU 0 fV1sTlIbAlR8DTbyC334BnAgw RKfScipn3hvg3nrkMz6CuV6UO VyrrPygQbqNEX5d5XjSx10T25 s IHdpZHRoPSIxNSUiIHZhbGlnb q0ztV3hTm6+VYPcjZG0pDH8jD 4xBpTlFoB6JJbkG824KxWncKD v Jswaj8iie0tksUz7EcFcWSVny jBiiClaKNC5o6SjKo81N1TscM sfg1IhBqh7tp98uOXya2A6kVL 9 K0EjWTYlxszuyQPfuUwkJQ9aB HLnkddaXRTnrV0nRDBlJ0d8Na BhPlU6CNlfX6IftdQ7TQSouGC g OWHmnQNMgG4aantsu3lxsbyqV vXzUVKoVYc5BHp1VQZveXooYr LyZBS2XuK0YOD1nTIsqM7roDm n mehmtO0lCql+BHF3wKYndGRGJ G8iEppciMA+FCQkUDY0vAobRE qzMSXfcC9lKQBeU7y8NcAgKfY 1 PBvxY6ZlsoH7XYNpiSLyUCXwo BGZsP0afrczt0cnxmijGqIlXL JfKEy8WGj5YZRweQduDcOuVDW 0 YgH9BZT4nJBhgG3vbExdhrsen G9wOyc+LapnxLyyPMR1BDr4D3 FjEco0NPBfcZbrQN6duHQiYWj u Eq0xaUpcpKvmZP0dGIBkmtfvg 903BrSku9osDTEmxAOgRZdpRE W3V02gd8W6UQSnQYVcAPA2nUV 4 oD3opKncovafcLVjeNuiopQuh EevWGndDHodV636BXDdoMtjUd XpYSa9D9SyBlp8TWCmkInhCF6 n zVFxCZsiTm6hxFapfMlxZO8cI HBdibfto193MnRcc2tjCANutY JaDRmdSPE0J34zw9R9JPNfTQC w WTW8cLF4eW8jxPbrqnkltPFss ZvnuqXdbXrjEPltRYxtI428RX WawPgvOfXtfKt5N8FdWuu5TCZ z cLarGN6ncCXhXYlkBz2txOwih LwbXZ8eUPDlxwnov593PkKbl2 yiBNPqaJHvRAabAWA2S46jv4C 6 NWIzBIAsCZH6cNF9yI3xwRpfj jogbGVmdDsgdmVydGljYWwtYW iqS910AULqzZyjSgTfpDszptJ g JHcmJAy4K0PmJivyuDF+PC90Y DWtKE38mZVuaBSuk9wjbPk0Od UwANPkYFC0lTtsHGwho2FtWNF t L84xtLMbx6U5IJWgmNuhrGCeA zPwaXH3yC6zOYlbbukwa1ragv bpLhzge9kdvn06bZ87T96mVTt p CEBjJOShOXXiOGIweWazfh0lz G9wIi8+DMHffNJ4iYF6sH4nCN MgObD7GSqfQ847AaMvhPXmQep j i9dqh9culUo4QuN2ISEqwfDxu TpcDYQ6o3TbDw08W58tVGdgUS MgJTKfWKBlVLErtKrecw2mqI3 w Ii8+SSDgvAM7zKR1jH0eCtDqM rJ9QEzjL494UnBntSVqCgnhZ5 7sF1AdoDS+TLQjLqj8RZInrNf s UN4bfQRdZXnqYw8zZJA2AcLbR nTjVAprW3DmKBMntwkmnzgmdL Q8BVGuGOYcqV80Rt6osOivPGR w pPKNvK0gebohw7icqmlxAqQjB CLnDQd0NVh9VMXyiVwpUbPbYR U0UeF8DHI7sWEutJ1ybIqhsjs g iS2zB6CdHGOurntmHw83eO8bR gDkCkB3XClgFac+RklTSCwgSk FNRVMgVzwvdGQ+PHCnHID1hSj l OWkhSMZdyD7cCMMmW8s4WeQlJ rY6FXuaU7DrUSYodfaoYg32mP 8tBwAdAvP2QNptC9PvciX9COF w aFUlPNpeNKN2J40hd3E6GZQeU IZkKEL4lSA0gL8xbFscwljbeN BunElvdsVykEzsDUbbKDfgG07 6 APVemLftXvJnHkV9JsU2HcC6X 0YtVst8UNTheYvbDF4cqDPoBQ quDu6jkDcwdJvvNY3dJZUqbmt w VPXazV2sCJWzuVRavNaqKF9dL JNongmax928VkVsSWD5YTMowK FtV7JfvZ7vQdKbGHZlGYOoB2V l aPRoYDloM475GPpvLqT3PHXmy iJsM7CxNNLpwSqfOeS3j7F5Xq 44NyBZZWFyczwvdGQ+PHRkIHN 0 jSwlYMddLDIduP5sZAIuJ7t2P lDtSrY9MOcvF1GjJEEgsoekRm 76zN2vKhLlAhT0QYvsJ6NlroJ 6 ZCDfcYWyKTrsBQB2H10rl4Y9Y TVyJCHjTFY7iAP0aG2auGletd ogbGVmdDsgdmVydGljYWwtYWx p E621QIYluAwwVh6EWKI9R2OoL em7NWVklFznNH3loOSnYBvqOi 6qnJvblLocLN0iDUOykerrUSU k wJ5pKEZfvYGtfAuyRB6tAUBhd kkdr142AsMxUKG8HSXfqQWyR4 WlxW6zRrOcRXUlGDBeD6LwnBJ t VCteE876ISzpEbH8GEDgheZtA 5QuTFMosWnsLoL6z3Y6Yc1GWC wvdGQ+EQ18wx16S2YfQonwRpx 0 ITWaTBD7yRE2iF2oUZMfASygk 0C2uUO4K3OwsdIfnn2kd0lvRO NxBThhX82xyBOin2D4LKVkdTW 5 DDRtuKwjJzKxxR40Kju+PGNvb Hnek9KkRacsk9wbw7itdZw0Jd QkIKMhbdPxqXmzVAK2p3ShGi9 8 T90uWQkpQCIoIMFgOKXjIQEre Trwil9afE4fPa4+GHTutJL3oL C5vV5iBpOeDeR4JTgjZ101PiU v qHCnYtadq0lot9gsiGr6DoKfA NNxboFzxMawMGT1z5CuXy58J4 WphSrqo3ZbDua1wo47fMFju7D 5 rQH5X4DhIWYgzmzhzACqzHqtL Y8sGQUhfuceBHQtjO2fFCOaU7 u7JcOrAtM1EIzsH4MyvzS0RZL v mMIgRXOdoWUVgV8bpjoej7isx lphKmYgQEOkGRp8IHg4BQDfuT foMwYzCGA1MvU0XWR4pVAvxU0 h nNkcypzemG5xJgs+DVm5k2fww HJsRQ5ddUI7GH77XX90wYZdk4 W7hCS7H4PyCLYpoybdwfjhrJK 6 WKLcPWGjnM37Pf8yiChbDg5uO CIdUSI1IOKytAWaG2LwyN2zFu LdMBRgMAXuQ6KhxDWfMIqhF71 6 TGosVgE9RITfhhNrP1QeQDMyj YjoHcF1n3Y5Rg7QTC15ZE23UT 16zHVvi9D3qEC7P6MlQFIviqk t zmuvlDO9EQFxKNRedQ58Uf2dm InmUn4wIAMfUOD5YLUyhUAtY3 JfkR3sSxKoHFZjNDStN7MllFS t QWhiE374SRtwJiB8BCDvpmOhO 5WlKQUulYyfEpX3i5V2Tj9BKs 62KU81YO53dUXaw3U6dJB7B0L h KUQvjgjddiwxjCK3AYRcRTVdk V73Io6vkEgrHh3iQCKtSGL7BQ WamYHjV1CxzR0jQtQmGHIbAUY w J2PekOLiLYzzU545XDuaMrS4V HItcoJuT2ZuTMXpgNniYiP2w1 R1Th2GQRabbgn9N9GqXahipQF + NR15WSEjCN39uKUxwAIed1edy Oi9DxNcAXTcGYN8mVivILgef6 VuHGEcP82dmEJnw3J7UHUvbGq h cHN (more content not included)... [facility] Coding Summary HTMLBase 64 RxluxmlpEQd8fXa+PGhlYWQ+P D7DHDElF19faTKimF7eC5HOHO lOSywgQVBQTElOSyIgbmFtZT1 kaXNjZXJu IC8+RV2hGYMiEmpzoSXbi9Q6r RQ1N42ahd4xRVcqfML0RNTsSq Gyqffjw4lgpRf8EFjwErlgIiS t CLIepD48IXL2rV45Gt61gSTzq PBrv3hnxBd7AjAaNMQtGMB8sE uaLXmij5MrBGYgZ27ctOIgo1K 6 CNWpoIejrVRxTpWruXA1nI6mA Ylqcrstw2zarmpvUam0ow29uA Tep0G7yJE1Z7LndvN3ECDanHN g RdynmXKByH5dxeicx9ndpogmM sIfLFAgBHa4KWg7IMEcrGmmGl XtCG29ZWY3OVFpkzErA3QlSRM s jBxkJjQ7b7Q0Pr1GX8QACwqqV 1VNTUFSWTwvdGQ+AS09qt43E4 VfVroyEgh6KKGnIEB3qDY8lG8 n BRHoFLonp1Y0hUZ8Y3PtuwDtu v1oc9dxIEEwKCwrG10wuDVjs1 N0NIBmwBI9FRSvkCamAkYixB0 3 Oyc+XMBtzEgkc1JtSttmd6snd 7zrmVp5QzdkEGNtxgYkkScyJG D7v2AvOa0uICRjpAL9hFL2sA4 i ImHcBkL9TLpiQ192MxSkpGTnX wmbS35mO2NqdZN+HTBtVoo0PA YqxZutWK4mC6GpJENuolywzTK m dFlxQS1pMZItozyfBOZvqA4kK SKsZ2o7DlTuAjO8HAptG5IzFL IsxdljAn02tB2uZqAgUnT7JJl u N1HmtmT8OXIxjTJiSJaiFTH7M 45nc4S4PJVcXIAnIVB5nMH4aS 1hbGlnbjogbGVmdDsgdmVydGl j FXgeQSzbR195EMNaqGevXpYnJ GluZyBEYXRlOiAgMTEvMDQvMj AyNDwvdGQ+KNGqGXW7qFymUQV n vFXfULltQn6cmLtwyQunLV8sF ZIifeztIMMdcN7tXMGraDViwJ keCF3uOXYrdsbuk318DnYnBHO 0 AIJlnLNoH7OuoV9lWzYdPEVzR VQqY6WpsGKaOTenA082NHfqZt C3MWAntvKyH6DfHKVheJeuVjI 0 x1E9Sh7Dw6PbzxmsP7MkoSXvF rRtYiwuYHh4R0AjAuegwGU+PC 30CYPbER64DQz3FIT6fLteKGl i LRAgG9UkaB7vTbKgUCKzFALlS yc+PHRhYmxlIHdpZHRoPScxMD KbRzSwwNraQP3bBl0bRIXzULF v uKuobFEjFmNoc2gyQPMgWObvF U2kyRotT3VfxVR9SXVwf9c9Rx 41Z88vG7UlyNT+CDPkwQE4dZP 0 dW8vUoMyXcS9HCscE789AdOjd TJsVnoqz7ycb5iimCl1JtO2KD HhbvTyjQwtHYB6k1MkZo82L02 s IHdpZHRoPSIxNSUiIHZhbGlnb p5wvG1kMx5+FNTejCB9oFV9kD 9bGuMfTxQ0ISikR513AzTmrHC v Wxcjz5oma0rzqVo7KeWeCYIhj eMlxDjyUUU4m3SwQj15X3YjmI cuw2LlDzu3il11lLBua1R1iAR 9 R0KpJMEovzznbXKtrCjuDJ0sY AZzvgmaCBPcbT4aYJBuP7b4Nz QsBnH6YFzpP6AvvgN0UYSzvFW g LCYrdEVJhN9ltkfeb0ngsstrQ pVmEOSvFIh7MMk5LMEuhRzsHj PsPHI1EmL0TNB8tJZelB7qoUd n tolsyM1tYcy+EYR6mQOfnNQGB O2zMvwleNA+PUVyMMH6dTtuOD tgOQYpgX7yNUHwD2v2IvYxDmU 1 UWdiI1RlowN4MRPadSMtTLZsb PWIaI1oujmml6dgzcfcIqDyQT BdTUe7UUv0FHHplMdpFrLiQWY 0 EzV9HJA8jQEddR4jjYyxnwvvu G9wOyc+YdpvhNhiPWB3PZy5F4 GlKat0YSCiqDvzLE7kpPLgFNx u Rw2dpRnvvVqdTW8iLVJpotbkm 967PuSnc8vjIDIdxUOwQStmKT N8X08tj9X6QMMdHYTiFSL8kNN 4 iN1gfCcbnhdyyQVrqYcgnzCaf LziJYviAHeiM262ZJLqbHwtFo QsQNe6Q7UeTna8KCHuyAqaDM5 n dOTkMJfhGv1ioDgmnZfhRN0gW ZEezcgjx135NkRkp4wdGZPazL BhFXgwAAL4S97ld4Y7MSVpAAE w KBZ5mHA4kC6cyKnjbeeppHAon RmyabFhmZqqZJbbIHzaW470UT IobGycHaFmeNc2H8JuOos5LQP z uJubKP2nzREjQGqvMa4xaTkev YoiWM3qTKUavhxwc775GaWdb1 uuMSRmzZDpYKoiXKO5P43za3O 6 HDIwAEAyVUZ3kME1mU1znLaac jogbGVmdDsgdmVydGljYWwtYW icP343VQDroGcyFdYomJruxyI g NUchMUl8S5OwTqcjzCY+PC90Y VXjGQ81kRSfjAZxz6cqeNz3Un ZgZMQrDYZ8aPurJGpqx9XbGSY t R26vgXQjz1N2IKSgxIjdgTYsB lMymHL4oG9oCQzmqbllo5fbcz xyEoykq8llvk40aP84M89oDQc p MUHuMFNlLYRdZSMugTvdiz7qc G9wIi8+WTImkBG1pWS7eU4kTQ DyKdK6ULblZ878PcJvaLFiYrs j w9mym7xrbZd8PsN3UIRsooBec EmmJSM8l5UhUw23K58lXNdlRC YaBLYfNOHbIZIgeHrfxq4xsE5 w Ii8+IHOavFW5uUJ3xL3yTtYlC qX6GXprE229EpEkwWJvJniaX3 8uX3SxfOX+FYCsHyg4HCAdrZw s OY9zhEBvGZnjHs4uWQP1TzOkO mSdKRtoF4XqYXTveqfehnonpW O5IYDgPWFtzK78Vy6nbPwiHMY w cRQWnO6uvydwh2mztpkuTzFlE POcGAt1SUb0FSSkiXkdDcSkFL U2ZiF7NIJ0aSUlgH6ptFowult g jB4vC0UzGGMqcohmEe67kV3jQ eMaRyN7JRceBcv+RklTSCwgSk FNRVMgVzwvdGQ+JMLaNHM2iCz l ZHbyPYZkbC9tSCOiF4r4EgWaQ lX9RVibF2ShDKGrivbcPj11xY 1qIqJtHeZ2IJglR0EritS1OEA w fNFwEQmzNVZ9X35xh3E3JAShV ISyZIY8zGR2cK3kgHxwbnsbcS PxxJvlfvPifZqbFQrhAFywJ90 6 FKTucYxrJeVrJhO2TjJ1RfA6H 2RcZgs2BZNudDsrTU7iyMRsRB wkHk1gbUwqqJkbUO1oQOWvfmf w OTCjnB8jDRTwfDLrlWpuVB3iZ VIhpajqv169BcMnXYY1SSKpdF GlA1PqpW7rKbUgLZHuUIBzX4R l vRBmAGmbN364SJsfGrH5JOHjw dDuA3XtDPNrxVotTkX4e5Y1Wo 44NyBZZWFyczwvdGQ+PHRkIHN 0 wDabWIiaZATmdY7bQYBmV2a9X iMbSiW6EWjrZ0EoMQCffkarKy 57vR4gMuUvSuF2NQpvX9WycbY 6 MIClePXvFQzcBDE8S37fy9N3V BKeLYZeLIY3cBV5iH8pqOarfs ogbGVmdDsgdmVydGljYWwtYWx p Z725FVHryQuvDe3AXSP7G1IcH bt7HNWjeGmyFX7abQPoQSiyDl 5hbBopvLhuAT5vOHGmscwfQWD k aJ0fKPUchVNjkJuoAU4zLDRzo udmi066QyPuVUG2ZCMcrCJtL1 EdwS1eMgDoJVVzORToV4KqjXS t AMzmD223HLebLsI4KHYmtvHvA 8AuDIYjaDksSnH2f7B4Qg6HIC wvdGQ+KJ61yl58I0KwGmitAwm 0 VMPhBZX7tZI1hX8iRRKiKRfxr 7F8fEP6V5EmmaSvtf2lz5wnLE VqTCfaH20ugRJis7Y7HIDufTY 5 DOGcnAdjTpJayJ88Dba+PGNvb Utgz5OeZyeuy4dyb5uhlSa3Hy GqKQIrcsSllDqqRHB9b4EhXs7 8 M23yWFuvWQBlYCVaZTXzRHZbj Xdtvc4ucN5pCa3+ORTlgID3dP H8uV8hRrYyCiH2AYavW304GlL v gUIaLmmxy1ijt0utzBz5UxSaK QTzodTjmRgtARS1b7PqZj56Q3 DhsFicp6VxYdn1mw72mGNdt6Q 5 tUB8T1FkLPMlcjzngYTnmKwoD U9lSIGmbhgsFPLcnF3hFZSoM5 n9KwAjDgY5EUzyV1ZoouL4CSF v tGAfTTGzmBITeK7xlzfed2jpl mbzLmWkEHInRYw5BVc8PZRvbW ksEnHnEBB2WrH1KZK2yLIegR7 h cNdgqqwfmH1pImp+ISl7h4sks UIiWH3ipVY1OQ78YN42qIVtm4 Z3qTS1J0DxROIhrnomwktxrLA 6 CLRtRLLspM58Pe7mqDfzLy6bE EWiPAY2DGSunZZmJ0UqpT2mIm ZsQDGbDWXrR5EzbKDeXNusZ74 6 KVdrYzR1BMCpkcPkZ4GnOWDce MjjUjV2j5Q0Gi1BMX50CO17QH 02rGEqs8Y3sFM7T0HzWSSmruc t ocitwUB5TZJzTJEhqA73Ve1mk IvsOv9hYJFdCAA8UOTwwOOwJ7 IgxL8cWoBuTEIjALApC7PqbLY t HIkpR721DTnqCzE2RJZxkvAgD 1PzKUJpgOdwSrQ6i9X1Qv0URb 59QP32TB46oPPzi0G5cQD7L6F h VUUkiobuebttqKV7UGOgEJCzg S17Il3bkGfoZc3cYPOeOKM9TC LnpUZrC4XcaM2iYsXtGGJnJAJ w W8BtwKNaVGmzK238RCmkNjP6I RBefpCkU9KdEQSasOflWhY7g3 V2Da6LTCoodww8Q9LeLuugtFD + YQ87IYWdBR12yLNpwHExx7ste Dx5YtHbNNHdJCN5eEjrYYxth4 MzOYInG45hkRLbx3F7ZQTwpPw h cHN (more content not included)... Normal [facility] TRANSTHORACIC ECHO (TTE) COM PLETEon 04-13-2024 TRANSTHORACIC ECHO (TTE) COMPLETE [address], [address], [place] [address] TRANSTHORACIC ECHOCARDIOGRAM REPORT Patient Name: FANI CHUA Reading Physician: [id number] Bonita Kingsley MD, [facility] Study Date: 04/13/2024 Ordering Provider: [id number] BONITA KINGSLEY MRN/PID: [id number] Fellow: Nurse: Date of /Age: 12 1935 / 88 years Belt Weaver: Karly Lin RDCS, T Gender: M Additional Staff: Height: 175.26 cm Admit Date: Weight: 75.75 kg Admission Status: BSA / BMI: 1.91 m2 / 24.66 kg/m2 Department Location: [facility] Blood Pressure: 134 /76 mmHg Study Type: TRANSTHORACIC ECHO (TTE) COMPLETE Diagnosis/ICD: 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 Normal [facility] US Heart Transthoracicon Aortic Valve Area by Continuity of Peak Velocity 2.69 cm2 [facility] Work Phone: Aortic Valve Area by Continuity of VTI 2.67 cm2 [facility] Work Phone: AV mn grad 9 mmHg [facility] Work Phone: AV pk grad 16.3 mmHg [facility] Work Phone: AV pk johnny 2.02 m/s [facility] Work Phone: LV A4C EF 35.9 [facility] Work Phone: LV Biplane EF 30 % [facility] Work Phone: LV EF 40 % [facility] Work Phone: LVIDd 6.97 cm [facility] Work Phone: LVOT diam 2.7 cm [facility] Work Phone: RVSP 41.9 mmHg [facility] Work Phone: [address], [place] [address] TRANSTHORACIC ECHOCARDIOGRAM REPORT Patient Name: FANI Caldwell Physician: [id number] Bonita Kingsley MD, [facility] Study Date: 04/13/2024 Ordering Provider: [id number] BONITA KINGSLEY MRN/PID: [id number] Fellow: Nurse: Date of /Age: 12 1935 / 88 years Belt Weaver: Karly Lin RDCS [facility] Gender: M Additional Staff: Height: 175.26 cm Admit Date: Weight: 75.75 kg Admission Status: BSA / BMI: 1.91 m2 / 24.66 kg/m2 Department Location: [facility] Blood Pressure: 134 /76 mmHg Study Type: TRANSTHORACIC ECHO (TTE) COMPLETE Diagnosis/ICD: 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; 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 Bonita Neri M D - 04/13/[address], [address] [place] [address] TRANSTHORACIC ECHOCARDIOGRAM REPORT Patient Name: FANI Caldwell Physician: [id number] Bonita Kingsley MD, [facility] Study Date: 04/13/2024 Ordering Provider: [id number] BONITA KINGSLEY MRN/PID: [id number] Fellow: Nurse: Date of /Age: 12 1935 / 88 years Belt Weaver: Karly Lin RDCS, T Gender: M Additional Staff: Height: 175.26 cm Admit Date: Weight: 75.75 kg Admission Status: BSA / BMI: 1.91 m2 / 24.66 kg/m2 Department Location: [facility] Blood Pressure: 134 /76 mmHg Study Type: TRANSTHORACIC ECHO (TTE) COMPLETE Diagnosis/ICD: 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; 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 [facility] Work Phone: [facility] Work Phone: Wound Cultureon 04-11-2024 Wound Culture left lower leg, KD, 04-08-24, 11:30 Moderate growth of Methicillin-Resistant Staphylococcus [...] <=0.5/9.5 Verified Vanc S 2 Verified Normal [facility] Comment on above: Performed By: #### [id number] ####[facility] (DEFAULT)[address] [place] [id number] XR knee RT 3V - NOT FOR ER U Nat 03-08-2024 XR knee RT 3V - NOT FOR ER USE [facility] [address] [place] [address] XRay Report Signed Patient: Fani Chua MR#: [id number] : 1935 Acct:[id number] Age/Sex: 88 / M ADM Date: 03/08/24 Loc: [facility] Room: Type: [facility] Attending Dr: Ramses Garcia DO Copies to: [...] Ramirez Jr., D.O.03/08/2024 4:14 PM Dictation Location: RADIO-PC-14 Transcribed By: HENRRY 03/08/24 161 Dictated By: Henry Ramirez Jr, DO 03/08/24 1613 Signed By: 03/08/24 161 Normal [facility] XR shoulder RT min 2V*on XR shoulder RT min 2V* [facility] [address] [place] [address] XRay Report Signed Patient: Fani Chua MR#: [id number] : 1935 Acct:[id number] Age/Sex: 88 / M ADM Date: 03/08/24 Loc: [facility] Room: Type: [facility] Attending Dr: Ramses Garcia DO Copies to: [...] Ramirez Jr., D.O.03/08/2024 4:13 PM Dictation Location: RADIO-PC-14 Transcribed By: HENRRY 03/08/24 161 Dictated By: Henry Ramirez Jr, DO 03/08/24 1609 Signed By: 03/08/24 161 Normal [facility] A1C with Estimated Average G jaimemuriel 02-27-2024 Glucose [Mass/Vol] 114 mg/dL Normal [facility] Comment on above: Result Comment: PERF ORMED BY: [facility] [address] [place] [address] PATHOLOGIST SANITATION DIRECTOR TERI EDMOND M.D. Performed By: #### P T #### [facility] [address] [place] [address] Activated partial thrombopla stin time (aPTT) in platelet poor plasma by coagulation aOrdered By: Bright Lopez on 02-27-2024 aPTT Coag (PPP) [Time] 39.2 s High 25.1-36.5 [facility] Alanine aminotransferase [En zymatic activity/volume] in Serum or PlasmaOrdered By: Bright Lopez on 02-27-2024 ALT [Catalytic activity/Vol] 18 U/L Normal 7-52 [facility] Comment on above: Order Comment: FASTI NG Y Performed By: #### C MP, TSH3 wRFLX, LIPID, [id number], [id number] ####[facility] [id number] Albumin [Mass/volume] in Ser um or Plasma by Bromocresol green (BCG) dye binding methoOrdered By: Brightelli Lopez on 02-27-2024 Albumin BCG dye [Mass/Vol] 3.8 g/dL 3.5-5.7 [facility] Alkaline phosphatase [Enzyma tic activity/volume] in Serum or PlasmaOrdered By: Bright Lopez on 02-27-2024 ALP [Catalytic activity/Vol] 108 U/L High 34-104 [facility] Comment on above: Order Comment: FASTI NG Y Performed By: #### C MP, TSH3 wRFLX, LIPID, [id number], [id number] ####[facility] Lgo[address] [place] [id number] [facility] Aspartate aminotransferase [ Enzymatic activity/volume] in Serum or PlasmaOrdered By: Bright Lopez on 02-27-2024 AST [Catalytic activity/Vol] 28 U/L Normal 13-39 [facility] Comment on above: Order Comment: FASTI NG Y Performed By: #### C MP, TSH3 wRFLX, LIPID, [id number], [id number] ####[place] [address] [address] Automated basophil %Ordered By: Bright Lopez on 02-27-2024 Basophils/100 WBC (Bld) 1.0 % Normal . [facility] Comment on above: Performed By: #### H S TROP, CBC, A1C WTH eA, PTT, PT ####[address] Automated basophil countOrde red By: Bright Lopez on 02-27-2024 Basophils (Bld) [#/Vol] 0.0 10*3/uL Normal 0.0-0.2 [facility] Comment on above: Result Comment: PERF ORMED BY: [facility] [address] [place] [address] PATHOLOGIST SANITATION DIRECTOR TERI EDMOND M.D. Performed By: #### H S TROP, CBC, A1C WTH eA, PTT, PT ####[address] Automated blood monocyte cou ntOrdered By: Bright Lopez on 02-27-2024 Monocytes (Bld) [#/Vol] 0.7 10*3/uL Normal 0.0-0.8 [facility] Comment on above: Performed By: #### H S TROP, CBC, A1C WTH eA, PTT, PT ####[address] Automated eosinophil %Ordere d By: Bright Lopez on 02-27-2024 Eosinophils/100 WBC (Bld) 1.4 % Normal . [facility] Comment on above: Performed By: #### H S TROP, CBC, A1C WTH eA, PTT, PT ####[address] Automated eosinophil countOr dered By: Bright Lopez on 02-27-2024 Eosinophils (Bld) [#/Vol] 0.1 10*3/uL Normal 0.0-0.45 [facility] Comment on above: Performed By: #### H S TROP, CBC, A1C WTH eA, PTT, PT ####[address] [address] [facility] Automated monocyte %Ordered By: Bright Lopez on 02-27-2024 Monocytes/100 WBC (Bld) 16.3 % Normal . [facility] Comment on above: Performed By: #### H S TROP, CBC, A1C WTH eA, PTT, PT ####[address] [address] [facility] Automated neutrophil %Ordere d By: Bright Lopez on 02-27-2024 Neutrophils/100 WBC (Bld) 58.6 % Normal . [facility] Comment on above: Performed By: #### H S TROP, CBC, A1C WTH eA, PTT, PT ####[address] [address] [facility] Bilirubin.total [Mass/volume ] in Serum or PlasmaOrdered By: Bright Lopez on 02-27-2024 Bilirubin [Mass/Vol] 0.8 mg/dL Normal 0.3-1.0 [facility] Comment on above: Order Comment: FASTI NG Y Performed By: #### C MP, TSH3 wRFLX, LIPID, [id number], [id number] ####[place] [id number] [facility] Calcium [Mass/volume] in Ser um or PlasmaOrdered By: Bright Lopez on 02-27-2024 Calcium [Mass/Vol] 9.5 mg/dL Normal 8.6-10.3 [facility] Comment on above: Order Comment: FASTI NG Y Performed By: #### C MP, TSH3 wRFLX, LIPID, [id number], [id number] ####[place] [id number] [facility] Carbon dioxide, total [Moles /volume] in Serum or PlasmaOrdered By: Bright Lopez on 02-27-2024 CO2 [Moles/Vol] 30.6 mmol/L Normal 21.0-31.0 [facility] Comment on above: Order Comment: FASTI NG Y Performed By: #### C MP, TSH3 wRFLX, LIPID, [id number], [id number] ####[place] [address] [place] [address] [facility] Chloride [Moles/volume] in S aime or PlasmaOrdered By: Bright Lopez on 02-27-2024 Chloride [Moles/Vol] 105 mmol/L Normal 98-107 [facility] Comment on above: Order Comment: FASTI NG Y Performed By: #### C MP, TSH3 wRFLX, LIPID, [id number], [id number] ####[place] [address] [place] [id number] [facility] Cholesterol [Mass/volume] in Serum or PlasmaOrdered By: Bright Lopez on 02-27-2024 Cholesterol [Mass/Vol] 130 mg/dL Low 140-200 [facility] Comment on above: Order Comment: FASTI NG Y Result Comment: Chol less than 200 mg/dl low risk Chol 201-239 mg/dl borderline risk Chol 240 mg/dl and greater high risk Performed By: #### C MP, TSH3 wRFLX, LIPID, [id number], [id number] ####[place] [id number] [facility] Cholesterol in LDL Calc [Mas s/Vol]Ordered By: Bright Lopez on 02-27-2024 Cholesterol in LDL [Mass/Vol] 48 mg/dL 0-100 [facility] Cholesterol in VLDL Calc [Ma ss/Vol]Ordered By: Brightdomenica Lopez on 02-27-2024 Cholesterol in VLDL [Mass/Vol] 12 mg/dL [facility] Complete Blood Count Auto Di ffon 02-27-2024 Mean Corpuscular HGB Conc 33.4 g/dL Normal 32.5-35.6 [facility] Comment on above: Performed By: #### H S TROP, CBC, A1C WTH eA, PTT, PT ####[place] [id number] [facility] NRBC% 0.0 /100{WBC} Normal 0-0.5 [facility] Comment on above: Performed By: #### H S TROP, CBC, A1C WTH eA, PTT, PT ####[place] [address] [address] Comprehensive Metabolic Pane rui 02-27-2024 Albumin [Mass/Vol] 3.8 g/dL Normal 3.5-5.7 [facility] Comment on above: Order Comment: FASTI NG Y Performed By: #### C MP, TSH3 wRFLX, LIPID, [id number], [id number] ####[place] [address] Creatinine Clr Calc Pharmacy 65.05 Normal [facility] Comment on above: Order Comment: FASTI NG Y Performed By: #### C MP, TSH3 wRFLX, LIPID, [id number], [id number] ####[address] GFR/1.73 sq M.predicted MDRD (S/P/Bld) [Vol rate/Area] mL/min/{1.73_m2} Normal [facility] Comment on above: Order Comment: FASTI NG Y Performed By: #### C MP, TSH3 wRFLX, LIPID, [id number], [id number] ####[address] Creatinine [Mass/volume] in Serum or PlasmaOrdered By: Bright Lopez on 02-27-2024 Creatinine [Mass/Vol] 0.77 mg/dL Normal 0.70-1.30 [facility] Comment on above: Order Comment: FASTI NG Y Performed By: #### C MP, TSH3 wRFLX, LIPID, [id number], [id number] ####[address] Erythrocyte distribution wid th [Ratio] by Automated countOrdered By: Bright Lopez on 02-27-2024 Erythrocyte distribution width (RBC) [Ratio] 16.2 % High 12.0-14.8 [facility] Comment on above: Performed By: #### H S TROP, CBC, A1C WTH eA, PTT, PT ####[facility] [place] [address] [facility] Erythrocytes [#/volume] in B lood by Automated countOrdered By: Bright Lopez on 02-27-2024 RBC (Bld) [#/Vol] 3.98 10*6/uL Normal 3.90-5.60 [facility] Comment on above: Performed By: #### H S TROP, CBC, A1C WTH eA, PTT, PT ####[facility] [id number] [place] [address] [facility] Folate [Mass/volume] in Seru m or PlasmaOrdered By: Bright Lopez on 02-27-2024 Folate [Mass/Vol] 16.9 ng/mL >5.9 [facility] Glucose [Mass/volume] in Ser um or PlasmaOrdered By: Bright Lopez on 02-27-2024 Glucose [Mass/Vol] 92 mg/dL Normal 70-100 [facility] Comment on above: Order Comment: FASTI NG Y Result Comment: [facility] Glucose Reference Range is dependent on time and content of last meal. Glucose of more than 200 mg/dL in a nonstressed, ambulatory subject supports the diagnosis of Diabetes Mellitus. ADA recommended reference range Performed By: #### C MP, TSH3 wRFLX, LIPID, [id number], [id number] ####[facility] [id number] [place] [id number] [facility] Glucose mean value [Mass/vol ume] in Blood Estimated from glycated hemoglobinOrdered By: Bright Lopez on 02-27-2024 Average glucose Estimated from glycated hemoglobin (Bld) [Mass/Vol] 114 mg/dL [facility] Hematocrit [Volume Fraction] of Blood by Automated countOrdered By: Bright Lopez on 02-27-2024 Hematocrit (Bld) [Volume fraction] 36.4 % Low 38.8-50.0 [facility] Comment on above: Performed By: #### H S TROP, CBC, A1C WTH eA, PTT, PT ####[facility] [id number] Hemoglobin A1c percentageOrd ered By: Bright Lopez on 02-27-2024 HbA1c (Bld) [Mass fraction] 5.6 % Normal 4.3-5.6 [facility] Comment on above: Result Comment: Incr eased risk for diabetes: 5.7 - 6.4 diabetes: >6.4 glycemic control for adults with diabetes: <7.0 Performed By: #### P T #### [facility] [address] Hemoglobin [Mass/volume] in BloodOrdered By: Bright Lopez on 02-27-2024 Hemoglobin (Bld) [Mass/Vol] 12.2 g/dL Low 13.0-17.0 [facility] Comment on above: Performed By: #### H S TROP, CBC, A1C WTH eA, PTT, PT ####[place] [address] [address] INR in Platelet poor plasma by Coagulation assayOrdered By: Bright Lopez on 02-27-2024 INR Coag (PPP) [Relative time] 1.8 {INR} Normal [facility] Comment on above: Result Comment: INR Therapeutic [...] TROP, CBC, A1C WTH eA, PTT, PT ####[facility] [place] [address] [place] Leukocytes [#/volume] correc amparo for nucleated erythrocytes in Blood by Automated counOrdered By: Bright Lopez on 02-27-2024 WBC corrected for nucl RBC Auto (Bld) [#/Vol] 4.1 10*3/uL 4.1-10.5 [facility] Leukocytes [#/volume] in Blo od by Automated countOrdered By: Bright Lopez on 02-27-2024 WBC (Bld) [#/Vol] 4.1 10*3/uL Normal 4.1-10.5 [facility] Comment on above: Performed By: #### H S TROP, CBC, A1C WTH eA, PTT, PT ####[place] [address] [place] [address] [facility] Lipid Panelon 02-27-2024 LDL Cholesterol,Calculated 48 mg/dL Normal 0-100 [facility] Comment on above: Order Comment: CHRISTIAN Jordan Result Comment: LDL ATP III CLASSIFICATION LDL less than 100 mg/dL Optimal LDL 100-129 mg/dL Near or above optimal LDL 130-159 mg/dL Borderline high LDL 160-189 mg/dL High LDL greater than 189 mg/dL Very high Performed By: #### C MP, TSH3 wRFLX, LIPID, [id number], [id number] ####[place] [address] [place] [id number] [facility] Triglyceride w/Reflex 60 mg/dL Normal 0-149 [facility] Comment on above: Order Comment: CHRISTIAN Jordan Result Comment: TRIG ATP III CLASSIFICATION TRIG less than 150 mg/dL Normal TRIG 150-199 mg/dL Borderline high TRIG 200-500 mg/dL High TRIG greater than 500 mg/dL Very high Standard traceable to the Center for Disease Conrtrol and Prevention (CDC) test method. Performed By: #### C MP, TSH3 wRFLX, LIPID, [id number], [id number] ####[place] [address] [place] [address] [facility] VLDL CHOLESTEROL 12 mg/dL Normal [facility] Comment on above: Order Comment: CHRISTIAN Jordan Performed By: #### C MP, TSH3 wRFLX, LIPID, [id number], [id number] ####[place] [address] [place] [address] [facility] Lymphocytes [#/volume] in Bl ood by Automated countOrdered By: Bright Lopez on 02-27-2024 Lymphocytes (Bld) [#/Vol] 0.9 10*3/uL Low 1.00-4.8 [facility] Comment on above: Performed By: #### H S TROP, CBC, A1C WTH eA, PTT, PT ####[place] [address] [address] Lymphocytes/100 leukocytes i n Blood by Automated countOrdered By: Bright Lopez on 02-27-2024 Lymphocytes/100 WBC (Bld) 22.7 % Normal . [facility] Comment on above: Performed By: #### H S TROP, CBC, A1C WTH eA, PTT, PT ####[place] [address] [address] MCH [Entitic mass] by Automa amparo countOrdered By: Bright Lopez on 02-27-2024 MCH (RBC) [Entitic mass] 30.6 pg Normal 27.5-35.2 [facility] Comment on above: Performed By: #### H S TROP, CBC, A1C WTH eA, PTT, PT ####[address] MCHC Auto (RBC) [Mass/Vol]Or dered By: Bright Lopez on 02-27-2024 MCHC (RBC) [Mass/Vol] 33.4 g/dL 32.5-35.6 [facility] MCV [Entitic volume] by Auto mated countOrdered By: Bright Lopez on 02-27-2024 MCV (RBC) [Entitic vol] 91.6 fL Normal 83.5-101 [facility] Comment on above: Performed By: #### H S TROP, CBC, A1C WTH eA, PTT, PT ####[address] Neutrophils [#/volume] in Bl ood by Automated countOrdered By: Bright Lopez on 02-27-2024 Neutrophils (Bld) [#/Vol] 2.4 10*3/uL Normal 1.8-7.7 [facility] Comment on above: Performed By: #### H S TROP, CBC, A1C WTH eA, PTT, PT ####[facility] [id number] No Panel InformationOrdered By: Bright Lopez on 02-27-2024 > 60.0 mL/Min [facility] 65.05 [facility] Nucleated erythrocytes [Pres ence] in Blood by Automated countOrdered By: Bright Lopez on 02-27-2024 Nucleated RBC Auto Ql (Bld) 0.0 /100{WBC} 0-0.5 [facility] Partial Thromboplastin Timeo n 02-27-2024 aPTT Coag (Bld) [Time] 39.2 s High 25.1-36.5 [facility] Comment on above: Result Comment: A he matocrit value greater than 55% may lead to inaccurate results in coagulation testing. Patients having hematocrit values >55% require a special collection tube for coagulation studies. Please contact the laboratory at [phone] for redraw instructions. PERFORMED BY: [facility] [address] [place] [address] PATHOLOGIST SANITATION DIRECTOR TERI EDMOND M.D. Performed By: #### P T #### [facility] [address] [place] [address] Platelet mean volume [Entiti c volume] in Blood by Automated countOrdered By: Bright Lopez on 02-27-2024 Platelet mean volume (Bld) [Entitic vol] 8.3 fL Normal 6.6-10.1 [facility] Comment on above: Performed By: #### H S TROP, CBC, A1C WTH eA, PTT, PT ####[facility] [id number] [address] Platelets [#/volume] in Bloo d by Automated countOrdered By: Bright Lopez on 02-27-2024 Platelets (Bld) [#/Vol] 144 10*3/uL Low 150-450 [facility] Comment on above: Performed By: #### H S TROP, CBC, A1C WTH eA, PTT, PT ####[place] [address] [place] [address] [facility] Potassium [Moles/volume] in Serum or PlasmaOrdered By: Bright Lopez on 02-27-2024 Potassium [Moles/Vol] 4.8 mmol/L Normal 3.5-5.1 [facility] Comment on above: Order Comment: FASTI NG Y Performed By: #### C MP, TSH3 wRFLX, LIPID, [id number], [id number] ####[address] [address] [facility] Protein [Mass/volume] in Ser um or PlasmaOrdered By: Bright Lopez on 02-27-2024 Protein [Mass/Vol] 6.8 g/dL Normal 6.4-8.9 [facility] Comment on above: Order Comment: FASTI NG Y Performed By: #### C MP, TSH3 wRFLX, LIPID, [id number], [id number] ####[place] [address] [place] [address] [facility] Prothrombin time (PT)Ordered By: Bright oLpez on 02-27-2024 PT Coag (PPP) [Time] 20.5 s High 9.0-12.9 [facility] Comment on above: Result Comment: A he matocrit value greater than 55% may lead to inaccurate results in coagulation testing. Patients having hematocrit values >55% require a special collection tube for coagulation studies. Please contact the laboratory at [phone] for redraw instructions. Performed By: #### H S TROP, CBC, A1C WTH eA, PTT, PT ####[place] [address] [place] [address] [facility] Serum globulin measurement b y calculation (mass/volume)Ordered By: Bright Lopez on 02-27-2024 Globulin (S) [Mass/Vol] 3.0 g/dL Normal [facility] Comment on above: Order Comment: FASTI NG Y Performed By: #### C MP, TSH3 wRFLX, LIPID, [id number], [id number] ####[address] Serum or plasma albumin/glob ulin mass ratioOrdered By: Bright Lopez on 02-27-2024 Albumin/Globulin [Mass ratio] 1.3 {ratio} Normal [facility] Comment on above: Order Comment: FASTI NG Y Performed By: #### C MP, TSH3 wRFLX, LIPID, [id number], [id number] ####[address] Serum or plasma anion gap de terminationOrdered By: Bright Lopez on 02-27-2024 Anion gap [Moles/Vol] 10.2 mmol/L Normal 6.0-15.0 [facility] Comment on above: Order Comment: FASTI NG Y Performed By: #### C MP, TSH3 wRFLX, LIPID, [id number], [id number] ####[address] Serum or plasma high density lipoprotein (HDL) cholesterol measurementOrdered By: Bright Lopez on 02-27-2024 Cholesterol in HDL [Mass/Vol] 70 mg/dL Normal 23-92 [facility] Comment on above: Order Comment: FASTI NG Y Result Comment: HDL CHOL ATP-III CLASSIFICATION Cardiovascular Risk HDL > or equal to 60 mg/dL LOW HDL < 40 mg/dL HIGH Performed By: #### C MP, TSH3 wRFLX, LIPID, [id number], [id number] ####[address] Serum or plasma total choles terol/high density lipoprotein (HDL) cholesterol mass ratOrdered By: Bright Lopez on 02-27-2024 Cholesterol.total/Chol esterol in HDL [Mass ratio] 1.9 {ratio} Normal <5.0 [facility] Comment on above: Order Comment: FASTI NG Y Performed By: #### C MP, TSH3 wRFLX, LIPID, [id number], [id number] ####[address] Sodium [Moles/volume] in Ser um or PlasmaOrdered By: Bright Lopez on 02-27-2024 Sodium [Moles/Vol] 141 mmol/L Normal 136-145 [facility] Comment on above: Order Comment: FASTI NG Y Performed By: #### C MP, TSH3 wRFLX, LIPID, [id number], [id number] ####[place] [address] [place] [id number] [facility] Thyroid Stim Hormone w/Rflxo n 02-27-2024 Thyroid Stim Hormone w/Rflx 1.76 u[iU]/mL Normal 0.45-5.33 [facility] Comment on above: Order Comment: FASTI NG Y Performed By: #### C MP, TSH3 wRFLX, LIPID, [id number], [id number] ####[place] [address] [place] [id number] [facility] Thyrotropin [Units/volume] i n Serum or PlasmaOrdered By: Bright Lopez on 02-27-2024 TSH Qn 1.76 m[IU]/L 0.45-5.33 [facility] Triglyceride [Mass/volume] i n Serum or PlasmaOrdered By: Bright Lopez on 02-27-2024 Triglyceride [Mass/Vol] 60 mg/dL 0-149 [facility] Troponin I High Sensitivityo n 02-27-2024 Troponin I High Sensitivity 22.5 pg/mL High 0.0-20.0 [facility] Comment on above: Result Comment: PERF ORMED BY: [facility] [address] [facility] [place] [id number] PATHOLOGIST SANITATION DIRECTOR TERI EDMOND M.D. Performed By: #### H S TROP, CBC, A1C WTH eA, PTT, PT ####[facility] [id number] [place] [address] [facility] Troponin I.cardiac [Mass/vol ume] in Serum or Plasma by Detection limit <= 0.01 ng/Ordered By: Bright Lopez on 02-27-2024 Troponin I.cardiac DL <= 0.01 ng/mL [Mass/Vol] 22.5 pg/mL High 0.0-20.0 [facility] Urea nitrogen [Mass/volume] in Serum or PlasmaOrdered By: Bright Lopez on 02-27-2024 Urea nitrogen [Mass/Vol] 15 mg/dL Normal 7-25 [facility] Comment on above: Order Comment: FASTI NG Y Performed By: #### C MP, TSH3 wRFLX, LIPID, [id number], [id number] ####[place] [id number] [facility] Vit. B12/Folate Profileon Folate 16.9 ng/mL Normal >5.9 [facility] Comment on above: Order Comment: FASTI NG Y Result Comment: Kelsey te reference range: >5.9 ng/ml The WHO technical consultation on folate and vitamin b12 deficiencies has determined that folate concentrations less than 4 ng/ml are considered deficient. Performed By: #### C MP, TSH3 wRFLX, LIPID, [id number], [id number] ####[place] [address] [place] [id number] [facility] Vitamin B12 ser/plasOrdered By: Bright Lopez on 02-27-2024 Cobalamin (Vitamin B12) [Mass/Vol] 390 pg/mL Normal 180-914 [facility] Comment on above: Order Comment: FASTI NG Y Performed By: #### C MP, TSH3 wRFLX, LIPID, [id number], [id number] ####[place] [id number] [facility] Vitamin D 25 Hydroxy Totalon 02-27-2024 Vitamin D 25 Hydroxy Total 29.3 ng/mL Low 30-100 [facility] Comment on above: Order Comment: FASTI NG Y Result Comment: ZENA MIN D STATUS 25(OH)VITAMIN D RANGE (ng/mL) Deficient <20 Insufficient 20 to <30 Sufficient 30 to 100 Reference: Sita MF,Oliva NC, Barbara COYLE, et al. Evaluation,treatment, and prevention of vitamin D deficiency; an Endocrine Society clinical practice guideline. JCEM. 2010; 96(7):1911-30. PERFORMED BY: [place] [address] PATHOLOGIST SANITATION DIRECTOR TERI EDMOND M.D. Performed By: #### C MP, TSH3 wRFLX, LIPID, [id number], [id number] ####[facility] [id number] Vitamin D+Metabolites [Mass/ volume] in Serum or PlasmaOrdered By: Bright Lopez on 02-27-2024 Vitamin D+Metabolites [Mass/Vol] 29.3 ng/mL Low 30-100 [facility] Alanine aminotransferase [En zymatic activity/volume] in Serum or PlasmaOrdered By: Alec Bliss on 02-26-2024 ALT [Catalytic activity/Vol] 20 U/L Normal 7-52 [facility] Comment on above: Performed By: #### P T #### [place] [address] [place] Albumin [Mass/volume] in Ser um or Plasma by Bromocresol green (BCG) dye binding methoOrdered By: Alec Bliss on 02-26-2024 Albumin BCG dye [Mass/Vol] 3.7 g/dL 3.5-5.7 [facility] Alkaline phosphatase [Enzyma tic activity/volume] in Serum or PlasmaOrdered By: Alec Bliss on 02-26-2024 ALP [Catalytic activity/Vol] 99 U/L Normal 34-104 [facility] Comment on above: Performed By: #### P T #### [facility] [address] [place] [id number] [facility] Aspartate aminotransferase [ Enzymatic activity/volume] in Serum or PlasmaOrdered By: Alec Bliss on 02-26-2024 AST [Catalytic activity/Vol] 32 U/L Normal 13-39 [facility] Comment on above: Performed By: #### P T #### [address] Automated basophil %Ordered By: Alec Bliss on 02-26-2024 Basophils/100 WBC (Bld) 0.6 % Normal . [facility] Comment on above: Performed By: #### B MP, CBC #### [address] Automated basophil countOrde red By: Alec Bliss on 02-26-2024 Basophils (Bld) [#/Vol] 0.0 10*3/uL Normal 0.0-0.2 [facility] Comment on above: Result Comment: PERF ORMED BY: [place] [address] PATHOLOGIST SANITATION DIRECTOR TERI EDMOND M.D. Performed By: #### B MP, CBC #### [address] Automated blood monocyte cou ntOrdered By: Alec Bliss on 02-26-2024 Monocytes (Bld) [#/Vol] 0.7 10*3/uL Normal 0.0-0.8 [facility] [facility] Comment on above: Performed By: #### B MP, CBC #### [address] Automated eosinophil %Ordere d By: Alec Bliss on 02-26-2024 Eosinophils/100 WBC (Bld) 0.8 % Normal . [facility] Comment on above: Performed By: #### B MP, CBC #### [address] Automated eosinophil countOr dered By: Alec Bliss on 02-26-2024 Eosinophils (Bld) [#/Vol] 0.0 10*3/uL Normal 0.0-0.45 [facility] Comment on above: Performed By: #### B MP, CBC #### [address] Automated monocyte %Ordered By: Alec Bliss on 02-26-2024 Monocytes/100 WBC (Bld) 15.6 % Normal . [facility] Comment on above: Performed By: #### B MP, CBC #### [address] Automated neutrophil %Ordere d By: Alec Bliss on 02-26-2024 Neutrophils/100 WBC (Bld) 71.9 % Normal . [facility] Comment on above: Performed By: #### B MP, CBC #### [facility] [address] [place] [address] BNP ser/plasOrdered By: Alec Bliss on 02-26-2024 Natriuretic peptide B (Bld) [Mass/Vol] 306.0 pg/mL High 5-100 [facility] Comment on above: Result Comment: PERF ORMED BY: [place] [address] PATHOLOGIST SANITATION DIRECTOR TERI EDMOND M.D. Performed By: #### P T #### [address] Bilirubin Test strip Ql (U)O rdered By: Alec Bliss on 02-26-2024 Bilirubin Ql (U) Negative Negative [facility] Bilirubin.total [Mass/volume ] in Serum or PlasmaOrdered By: Alec Bliss on 02-26-2024 Bilirubin [Mass/Vol] 0.7 mg/dL Normal 0.3-1.0 [facility] Comment on above: Performed By: #### P T #### [address] BioFire Not Detectedon 02-25 BioFire Not Detected Not detected Normal Not Detecte [facility] Comment on above: Result Comment: This is a duplicate RP2.1 COVID (PCR) result to be used for statistical tracking purpose only. PERFORMED BY: [place] [address] PATHOLOGIST SANITATION DIRECTOR TERI EDMOND M.D. Performed By: #### P T #### [facility] [address] [place] [address] COVID-19 Detected/Not Detect edOrdered By: Alec Bliss on 02-26-2024 SARS-CoV-2 (COVID-19) RNA SHARRI+non-probe Ql (Nph) Not detected Not Detecte [facility] CT head/brain wo conon 02-25 CT head/brain wo con [facility] [place] [address] [place] [address] CT Scan Report Signed Patient: Fani Chua MR#: [id number] : 1935 Acct:[id number] Age/Sex: 88 / M ADM Date: 02/26/24 Loc: ER Room: Type: [facility] ER Attending Dr: Copies to: Alec Blsis DO Ordering Provider: Alec Bliss DO Date [...] Cyn Llamas M.D.02/26/2024 10:10 AM Dictation Location: [place] [address] Transcribed By: [facility] 02/26/24 1010 Dictated By: Cyn Llamas MD 02/26/24 1006 Signed By: 02/26/24 1010 Normal [facility] Calcium [Mass/volume] in Ser um or PlasmaOrdered By: Alec Bliss on 02-26-2024 Calcium [Mass/Vol] 8.9 mg/dL Normal 8.6-10.3 [facility] Comment on above: Performed By: #### P T #### [address] Carbon dioxide, total [Moles /volume] in Serum or PlasmaOrdered By: Alec Bliss on 02-26-2024 CO2 [Moles/Vol] 25.3 mmol/L Normal 21.0-31.0 [facility] Comment on above: Performed By: #### P T #### [address] Chloride [Moles/volume] in S aime or PlasmaOrdered By: Alec Bliss on 02-26-2024 Chloride [Moles/Vol] 106 mmol/L Normal 98-107 [facility] Comment on above: Performed By: #### P T #### [address] Color of Urine by AutoOrdere d By: Alec Bliss on 02-26-2024 Color (U) Light-yellow Normal Yellow [facility] Comment on above: Order Comment: Name Collection Type:: Clean-Voided Midstream Performed By: #### P T #### [address] Complete Blood Count Auto Di ffon 02-26-2024 Mean Corpuscular HGB Conc 33.9 g/dL Normal 32.5-35.6 [facility] Comment on above: Performed By: #### B MP, CBC #### [place] [address] [place] Monocytes/100 WBC (Bld) 16.32 % Normal 0.00-20.00 [facility] Comment on above: Performed By: #### B MP, CBC #### [place] [address] [place] NRBC% 0.1 /100{WBC} Normal 0-0.5 [facility] Comment on above: Performed By: #### B MP, CBC #### [address] Comprehensive Metabolic Pane rui 02-26-2024 Albumin [Mass/Vol] 3.7 g/dL Normal 3.5-5.7 [facility] Comment on above: Performed By: #### P T #### [place] [address] [place] Creatinine Clr Calc Pharmacy 65.05 Normal [facility] Comment on above: Performed By: #### P T #### [facility] [address] [place] [address] GFR/1.73 sq M.predicted MDRD (S/P/Bld) [Vol rate/Area] mL/min/{1.73_m2} Normal [facility] Comment on above: Performed By: #### P T #### [facility] [address] [place] [address] Creatinine [Mass/volume] in Serum or PlasmaOrdered By: Alec Bliss on 02-26-2024 Creatinine [Mass/Vol] 0.80 mg/dL Normal 0.70-1.30 [facility] Comment on above: Performed By: #### P T #### [address] ECG 12 lead ECGon 02-26-2024 ECG 12 lead ECG [facility] [place] [address] [place] [address] Electrocardiograph Report Signed Patient: Fani Chua MR#: [id number] : 1935 Acct:[id number] Age/Sex: 88 / M ADM Date: 02/26/24 Loc: Room: [address] [place] [address] Type: ADM IN Attending Dr: Bright Lopez [...] was found Confirmed by ALEC BLISS DO ([id number]) on 02/26/2024 5:27:36 PM Referred By: Electronically Signed By: ALEC BLISS DO Transcribed By: MUS Signed By Alec Bliss DO 02/25 1727 Normal [facility] Erythrocyte distribution wid th [Ratio] by Automated countOrdered By: Alec Bliss on 02-26-2024 Erythrocyte distribution width (RBC) [Ratio] 16.2 % High 12.0-14.8 [facility] Comment on above: Performed By: #### B MP, CBC #### [facility] [address] Erythrocytes [#/volume] in B lood by Automated countOrdered By: Alec Bliss on 02-26-2024 RBC (Bld) [#/Vol] 3.74 10*6/uL Low 3.90-5.60 [facility] Comment on above: Performed By: #### B MP, CBC #### [facility] [address] Glucose [Mass/volume] in Ser um or PlasmaOrdered By: Alec Bliss on 02-26-2024 Glucose [Mass/Vol] 105 mg/dL High 70-100 [facility] Comment on above: Result Comment: [facility] Glucose Reference Range is dependent on time and content of last meal. Glucose of more than 200 mg/dL in a nonstressed, ambulatory subject supports the diagnosis of Diabetes Mellitus. ADA recommended reference range Performed By: #### P T #### [address] Glucose [Mass/volume] in Uri ne by Test stripOrdered By: Alec Bliss on 02-26-2024 Glucose Test strip (U) [Mass/Vol] Normal mg/dL Normal [facility] Hematocrit [Volume Fraction] of Blood by Automated countOrdered By: Alec Bliss on 02-26-2024 Hematocrit (Bld) [Volume fraction] 34.0 % Low 38.8-50.0 [facility] Comment on above: Performed By: #### B MP, CBC #### [facility] [address] Hemoglobin Test strip Ql (U) Ordered By: Alec Bliss on 02-26-2024 Hemoglobin Ql (U) Negative Negative [facility] Hemoglobin [Mass/volume] in BloodOrdered By: Alec Bliss on 02-26-2024 Hemoglobin (Bld) [Mass/Vol] 11.5 g/dL Low 13.0-17.0 [facility] Comment on above: Performed By: #### B MP, CBC #### [address] INR in Platelet poor plasma by Coagulation assayOrdered By: Alec Bliss on 02-26-2024 INR Coag (PPP) [Relative time] 1.7 {INR} Normal [facility] Comment on above: Result Comment: INR Therapeutic [...] heart valves: 3 - 4.5 PERFORMED BY: [place] [address] PATHOLOGIST SANITATION DIRECTOR TERI EDMOND M.D. Performed By: #### P T #### [address] Ketones [Presence] in Urine by Test stripOrdered By: Alec Bliss on 02-26-2024 Ketones Ql (U) Negative Normal Negative [facility] Comment on above: Order Comment: Name Collection Type:: Clean-Voided Midstream Performed By: #### P T #### [place] [address] [place] Leukocyte esterase [Presence ] in Urine by Test stripOrdered By: Alec Bliss on 02-26-2024 Leukocyte esterase Test strip Ql (U) Negative Normal Negative [facility] Comment on above: Order Comment: Name Collection Type:: Clean-Voided Midstream Performed By: #### P T #### [place] [address] [place] Leukocytes [#/volume] correc amparo for nucleated erythrocytes in Blood by Automated counOrdered By: Alec Bliss on 02-26-2024 WBC corrected for nucl RBC Auto (Bld) [#/Vol] 4.7 10*3/uL 4.1-10.5 [facility] Leukocytes [#/volume] in Blo od by Automated countOrdered By: Alec Bliss on 02-26-2024 WBC (Bld) [#/Vol] 4.7 10*3/uL Normal 4.1-10.5 [facility] Comment on above: Performed By: #### B MP, CBC #### [facility] [address] [place] [address] [place] Lymphocytes [#/volume] in Bl ood by Automated countOrdered By: Alec Bliss on 02-26-2024 Lymphocytes (Bld) [#/Vol] 0.5 10*3/uL Low 1.00-4.8 [facility] Comment on above: Performed By: #### B MP, CBC #### [address] Lymphocytes/100 leukocytes i n Blood by Automated countOrdered By: Alec Bliss on 02-26-2024 Lymphocytes/100 WBC (Bld) 11.1 % Normal . [facility] Comment on above: Performed By: #### B MP, CBC #### [address] MCH [Entitic mass] by Automa amparo countOrdered By: Alec Bliss on 02-26-2024 MCH (RBC) [Entitic mass] 30.8 pg Normal 27.5-35.2 [facility] Comment on above: Performed By: #### B MP, CBC #### [address] MCHC Auto (RBC) [Mass/Vol]Or dered By: Alec Bliss on 02-26-2024 MCHC (RBC) [Mass/Vol] 33.9 g/dL 32.5-35.6 [facility] MCV [Entitic volume] by Auto mated countOrdered By: Alec Bliss on 02-26-2024 MCV (RBC) [Entitic vol] 90.8 fL Normal 83.5-101 [facility] Comment on above: Performed By: #### B MP, CBC #### [place] [id number] [place] Magnesium [Mass/volume] in S aime or PlasmaOrdered By: Alec Bliss on 02-26-2024 Magnesium [Mass/Vol] 1.5 mg/dL Low 1.9-2.7 [facility] Comment on above: Result Comment: PERF ORMED BY: [place] [address] PATHOLOGIST SANITATION DIRECTOR TERI EDMOND M.D. Performed By: #### P T #### [address] Monocyte distribution width [Entitic volume] in Blood by AutomatedOrdered By: Alec Bliss on 02-26-2024 Monocyte distribution width Auto (Bld) [Entitic vol] 16.32 % 0.00-20.00 [facility] Neutrophils [#/volume] in Bl ood by Automated countOrdered By: Alec Bliss on 02-26-2024 Neutrophils (Bld) [#/Vol] 3.4 10*3/uL Normal 1.8-7.7 [facility] Comment on above: Performed By: #### B MP, CBC #### [facility] [address] [place] [address] Nitrite Test strip Ql (U)Ord ered By: Alec Bliss on 02-26-2024 Nitrite Ql (U) Negative Negative [facility] No Panel InformationOrdered By: Alec Bliss on 02-26-2024 > 60.0 mL/Min [facility] 65.05 [facility] Nucleated erythrocytes [Pres ence] in Blood by Automated countOrdered By: Alec Bliss on 02-26-2024 Nucleated RBC Auto Ql (Bld) 0.1 /100{WBC} 0-0.5 [facility] Platelet mean volume [Entiti c volume] in Blood by Automated countOrdered By: Alec Bliss on 02-26-2024 Platelet mean volume (Bld) [Entitic vol] 8.3 fL Normal 6.6-10.1 [facility] Comment on above: Performed By: #### B MP, CBC #### [facility] [address] [place] [address] Platelets [#/volume] in Bloo d by Automated countOrdered By: Alechumberto Bliss on 02-26-2024 Platelets (Bld) [#/Vol] 138 10*3/uL Low 150-450 [facility] Comment on above: Performed By: #### B MP, CBC #### [address] Potassium [Moles/volume] in Serum or PlasmaOrdered By: Alec Bliss on 02-26-2024 Potassium [Moles/Vol] 3.8 mmol/L Normal 3.5-5.1 [facility] Comment on above: Performed By: #### P T #### [address] Protein Test strip (U) [Mass /Vol]Ordered By: Alec Bliss on 02-26-2024 Protein (U) [Mass/Vol] Negative Negative [facility] Protein [Mass/volume] in Ser um or PlasmaOrdered By: Alec Bliss on 02-26-2024 Protein [Mass/Vol] 6.5 g/dL Normal 6.4-8.9 [facility] Comment on above: Performed By: #### P T #### [address] Prothrombin time (PT)Ordered By: Alec Bliss on 02-26-2024 PT Coag (PPP) [Time] 19.6 s High 9.0-12.9 [facility] Comment on above: Result Comment: A he matocrit value greater than 55% may lead to inaccurate results in coagulation testing. Patients having hematocrit values >55% require a special collection tube for coagulation studies. Please contact the laboratory at [phone] for redraw instructions. Performed By: #### P T #### [address] Respiratory (Upper) Panel, P CRon 02-26-2024 [...] A H3 Blank Space ---- PERFORMED BY: [place] [address] PATHOLOGIST SANITATION DIRECTOR TERI EDMOND M.D. Normal [facility] Comment on above: Performed By: #### P T #### [address] Respiratory pathogens DNA an d RNA panel - Nasopharynx by SHARRI with non-probe detectionOrdered By: Alec Bliss on 02-26-2024 Respiratory pathogens DNA and RNA panel SHARRI+non-probe (Nph) [facility] Serum globulin measurement b y calculation (mass/volume)Ordered By: Alec Bliss on 02-26-2024 Globulin (S) [Mass/Vol] 2.8 g/dL [facility] Comment on above: Performed By: #### P T #### [address] Serum or plasma albumin/glob ulin mass ratioOrdered By: Alec Bliss on 02-26-2024 Albumin/Globulin [Mass ratio] 1.3 {ratio} [facility] Comment on above: Performed By: #### P T #### [address] Serum or plasma anion gap de terminationOrdered By: Alec Bliss on 02-26-2024 Anion gap [Moles/Vol] 10.5 mmol/L Normal 6.0-15.0 [facility] Comment on above: Performed By: #### P T #### [address] Sodium [Moles/volume] in Ser um or PlasmaOrdered By: Alec Bliss on 02-26-2024 Sodium [Moles/Vol] 138 mmol/L Normal 136-145 [facility] Comment on above: Performed By: #### P T #### [address] Specific gravity Test strip (U) [Rel density]Ordered By: Alec Bliss on 02-26-2024 Specific gravity (U) [Rel density] 1.017 1.001-1.03 0 [facility] Troponin I High Sensitivityo n 02-26-2024 Troponin I High Sensitivity 29.3 pg/mL High 0.0-20.0 [facility] Comment on above: Result Comment: PERF ORMED BY: [place] [address] PATHOLOGIST SANITATION DIRECTOR TERI EDMOND M.D. Performed By: #### P T #### [address] Troponin I High Sensitivity 30.9 pg/mL High 0.0-20.0 [facility] Comment on above: Result Comment: PERF ORMED BY: [place] [address] PATHOLOGIST SANITATION DIRECTOR TERI EDMOND M.D. Performed By: #### P T #### [address] Troponin I.cardiac [Mass/vol ume] in Serum or Plasma by Detection limit <= 0.01 ng/Ordered By: Alec Bliss on 02-26-2024 Troponin I.cardiac DL <= 0.01 ng/mL [Mass/Vol] 30.9 pg/mL High 0.0-20.0 [facility] Urea nitrogen [Mass/volume] in Serum or PlasmaOrdered By: Alec Bliss on 02-26-2024 Urea nitrogen [Mass/Vol] 20 mg/dL Normal 7-25 [facility] Comment on above: Performed By: #### P T #### [address] Urinalysison 02-26-2024 Bilirubin,Urine Negative Normal Negative [facility] Comment on above: Order Comment: Name Collection Type:: Clean-Voided Midstream Performed By: #### P T #### [address] Glucose Ql (U) Normal Normal Normal [facility] Comment on above: Order Comment: Name Collection Type:: Clean-Voided Midstream Performed By: #### P T #### [address] Nitrite,Urine Negative Normal Negative [facility] Comment on above: Order Comment: Name Collection Type:: Clean-Voided Midstream Performed By: #### P T #### [address] Occult Blood,Urine Negative Normal Negative [facility] Comment on above: Order Comment: Name Collection Type:: Clean-Voided Midstream Result Comment: PERF ORMED BY: [place] [address] PATHOLOGIST SANITATION DIRECTOR TERI EDMOND M.D. Performed By: #### P T #### [place] [address] [place] Protein,Urine Negative Normal Negative [facility] Comment on above: Order Comment: Name Collection Type:: Clean-Voided Midstream Performed By: #### P T #### [place] [address] [place] Specificy [place],Urine 1.017 Normal 1.001-1.03 0 [facility] Comment on above: Order Comment: Name Collection Type:: Clean-Voided Midstream Performed By: #### P T #### [address] Urobilinogen,Urine Normal Normal Normal [facility] Comment on above: Order Comment: Name Collection Type:: Clean-Voided Midstream Performed By: #### P T #### [address] Urine appearanceOrdered By: Alec Bliss on 02-26-2024 Appearance (U) Clear Normal Clear [facility] Comment on above: Order Comment: Name Collection Type:: Clean-Voided Midstream Performed By: #### P T #### [address] Urobilinogen Test strip (U) [Mass/Vol]Ordered By: Alec Bliss on 02-26-2024 Urobilinogen (U) [Mass/Vol] Normal mg/dL Normal [facility] XR chest 2V*on 02-26-2024 XR chest 2V* [facility] [place] [address] [place] [address] XRay Report Signed Patient: Fain Chua MR#: [id number] : 1935 Acct:[id number] Age/Sex: 88 / M ADM Date: 02/26/24 Loc: ER Room: Type: [facility] ER Attending Dr: Copies to: Alec Bliss [...] Cyn Llamas M.D.02/26/2024 10:06 AM Dictation Location: [facility] Transcribed By: HENRRY 02/26/24 1006 Dictated By: Cyn Llamas MD 02/26/24 1002 Signed By: 02/26/24 1006 Normal [facility] pH of Urine by Test stripOrd ered By: Alec Bliss on 02-26-2024 pH (U) 5.0 [pH] Normal 5.0-9.0 [facility] Comment on above: Order Comment: Name Collection Type:: Clean-Voided Midstream Performed By: #### P T #### [address] XR knee RT 3V - NOT FOR ER U Nat 02-03-2024 XR knee RT 3V - NOT FOR ER USE [facility] [address] [place] [address] XRay Report Signed Patient: Fani Chua MR#: [id number] : 1935 Acct:[id number] Age/Sex: 88 / M ADM Date: 02/03/24 Loc: [facility] Room: Type: [facility] Attending Dr: Roly Morales DO Copies to: [...] FRACTURE. Impression dictated by: Henry Ramirez Jr., D.O.02/03/2024 3:28 PM Dictation Location: [id number] Transcribed By: [facility] 02/03/24 1528 Dictated By: Henry Ramirez Jr, 02/03/24 1528 Signed By: 02/03/24 152 Normal [facility] Anisocytosis [Presence] in B lood by Light microscopyOrdered By: Italia Moore on 01-22-2024 Anisocytosis Ql (Bld) Slight Normal [facility] Comment on above: Performed By: #### B MP, CBC #### [facility] [address] [place] [address] Basic Metabolic Panelon Creatinine Clr Calc Pharmacy 65.05 Normal [facility] Comment on above: Performed By: #### B MP, CBC #### [address] GFR/1.73 sq M.predicted MDRD (S/P/Bld) [Vol rate/Area] mL/min/{1.73_m2} Normal [facility] Comment on above: Performed By: #### B MP, CBC #### [address] Basophils Auto (Bld) [#/Vol] Ordered By: Italia Moore on 01-22-2024 Basophils (Bld) [#/Vol] N/A [facility] Basophils/100 WBC Auto (Bld) Ordered By: Italia Moore on 01-22-2024 Basophils/100 WBC (Bld) N/A [facility] Basophils/100 leukocytes in Blood by Manual countOrdered By: Italia Moore on 01-22-2024 Basophils/100 WBC (Bld) 1 % Normal 0-2 [facility] Comment on above: Performed By: #### B MP, CBC #### [facility] [address] [place] [address] Calcium [Mass/volume] in Ser um or PlasmaOrdered By: Italia Moore on 01-22-2024 Calcium [Mass/Vol] 8.8 mg/dL Normal 8.6-10.3 [facility] Comment on above: Performed By: #### B MP, CBC #### [address] [place] [address] [place] Carbon dioxide, total [Moles /volume] in Serum or PlasmaOrdered By: Italia Moore on 01-22-2024 CO2 [Moles/Vol] 30.6 mmol/L Normal 21.0-31.0 [facility] Comment on above: Performed By: #### B MP, CBC #### [facility] [address] [place] [address] [place] Chloride [Moles/volume] in S aime or PlasmaOrdered By: Italia Moore on 01-22-2024 Chloride [Moles/Vol] 106 mmol/L Normal 98-107 [facility] Comment on above: Performed By: #### B MP, CBC #### [facility] [address] [place] [address] [place] Cholesterol [Mass/volume] in Serum or PlasmaOrdered By: Italia Moore on 01-22-2024 Cholesterol [Mass/Vol] 122 mg/dL Low 140-200 [facility] Comment on above: Chol less than 200 m g/dl low riskChol 201-239 mg/dl borderline riskChol 240 mg/dl and greater high risk Result Comment: Chol less than 200 mg/dl low risk Chol 201-239 mg/dl borderline risk Chol 240 mg/dl and greater high risk Performed By: #### B MP, CBC #### [facility] [address] [place] [id number] [place] Cholesterol in LDL Calc [Mas s/Vol]Ordered By: Italia Moore on 01-22-2024 Cholesterol in LDL [Mass/Vol] 41 mg/dL 0-100 [facility] Comment on above: LDL ATP III CLASSIFI CATIONLDL less than 100 mg/dL OptimalLDL 100-129 mg/dL Near or above optimalLDL 130-159 mg/dL Borderline highLDL 160-189 mg/dL HighLDL greater than 189 mg/dL Very high Cholesterol in VLDL Calc [Ma ss/Vol]Ordered By: Italia Moore on 01-22-2024 Cholesterol in VLDL [Mass/Vol] 10 mg/dL [facility] Creatinine [Mass/volume] in Serum or PlasmaOrdered By: Italia Moore on 08-09-2024 Creatinine [Mass/Vol] 0.80 mg/dL Normal 0.70-1.30 [facility] Comment on above: Performed By: #### B MP, CBC #### [facility] [address] [place] [address] [place] Diff and CBCon 01-22-2024 Giant Platelet Tally 1 /100{WBC} Normal [facility] Comment on above: Performed By: #### B MP, CBC #### [facility] [address] [place] [address] Mean Corpuscular HGB Conc 33.2 g/dL Normal 32.5-35.6 [facility] Comment on above: Performed By: #### B MP, CBC #### [address] Microcytosis Slight Normal [facility] Comment on above: Performed By: #### B MP, CBC #### [facility] [address] [place] [address] Myelocytes 3 % High 0-0 [facility] Comment on above: Performed By: #### B MP, CBC #### [address] Platelet Estimate Decreased Normal Normal [facility] Comment on above: Performed By: #### B MP, CBC #### [address] Platelet Morphology Normal Normal Normal [facility] Comment on above: Result Comment: PERF ORMED BY: [place] [address] PATHOLOGIST SANITATION DIRECTOR TERI EDMOND M.D. Performed By: #### B MP, CBC #### [facility] [address] [place] [address] [place] Eosinophils Auto (Bld) [#/Vo l]Ordered By: Italia Moore on 01-22-2024 Eosinophils (Bld) [#/Vol] N/A [facility] Eosinophils/100 WBC Auto (Bl d)Ordered By: Italia Moore on 01-22-2024 Eosinophils/100 WBC (Bld) N/A [facility] Eosinophils/100 leukocytes i n Blood by Manual countOrdered By: Italia Moore on 01-22-2024 Eosinophils/100 WBC (Bld) 1 % Normal 1-3 [facility] Comment on above: Performed By: #### B MP, CBC #### [facility] [address] Erythrocyte distribution wid th [Ratio] by Automated countOrdered By: Italia Moore on 01-22-2024 Erythrocyte distribution width (RBC) [Ratio] 16.8 % High 12.0-14.8 [facility] Comment on above: Performed By: #### B MP, CBC #### [place] [address] [place] Erythrocytes [#/volume] in B lood by Automated countOrdered By: Italia Moore on 01-22-2024 RBC (Bld) [#/Vol] 3.84 10*6/uL Low 3.90-5.60 [facility] Comment on above: Performed By: #### B MP, CBC #### [place] [address] [place] Giant platelets/100 leukocyt es [Ratio] in Blood by Manual countOrdered By: Italia Moore on 01-22-2024 Giant platelets/100 WBC Manual cnt (Bld) [Ratio] 1 /100{WBC} [facility] Glucose [Mass/volume] in Ser um or PlasmaOrdered By: Italia Moore on 01-22-2024 Glucose [Mass/Vol] 87 mg/dL Normal 70-100 [facility] Comment on above: ADA recommended refe rence rangeRandom Glucose Reference Range is dependent on time and content of last meal. Glucose of more than 200 mg/dL in a nonstressed, ambulatory subject supports the diagnosis of Diabetes Mellitus. Result Comment: [place] om Glucose Reference Range is dependent on time and content of last meal. Glucose of more than 200 mg/dL in a nonstressed, ambulatory subject supports the diagnosis of Diabetes Mellitus. ADA recommended reference range Performed By: #### B MP, CBC #### [facility] [address] [place] [address] [place] Hematocrit [Volume Fraction] of Blood by Automated countOrdered By: Italia Moore on 01-22-2024 Hematocrit (Bld) [Volume fraction] 34.9 % Low 38.8-50.0 [facility] Comment on above: Performed By: #### B MP, CBC #### [address] Hemoglobin [Mass/volume] in BloodOrdered By: Italia Moore on 01-22-2024 Hemoglobin (Bld) [Mass/Vol] 11.6 g/dL Low 13.0-17.0 [facility] Comment on above: Performed By: #### B MP, CBC #### [address] INR in Platelet poor plasma by Coagulation assayOrdered By: Italia Moore on 01-22-2024 INR Coag (PPP) [Relative time] 2.2 {INR} Normal [facility] Comment on above: INR Therapeutic Rang e [...] heart valves: 3 - 4.5 PERFORMED BY: [place] [address] PATHOLOGIST SANITATION DIRECTOR TERI EDMOND M.D. Performed By: #### C OVID 19 [facility] #### [address] Leukocytes [#/volume] correc amparo for nucleated erythrocytes in Blood by Automated counOrdered By: Italia Moore on 01-22-2024 WBC corrected for nucl RBC Auto (Bld) [#/Vol] 5.0 10*3/uL 4.1-10.5 [facility] Leukocytes [#/volume] in Blo od by Automated countOrdered By: Italia Moore on 01-22-2024 WBC (Bld) [#/Vol] 5.0 10*3/uL Normal 4.1-10.5 [facility] Comment on above: Performed By: #### B MP, CBC #### [facility] [address] Lipid Panelon 01-22-2024 LDL Cholesterol,Calculated 41 mg/dL Normal 0-100 [facility] Comment on above: Result Comment: LDL ATP III CLASSIFICATION LDL less than 100 mg/dL Optimal LDL 100-129 mg/dL Near or above optimal LDL 130-159 mg/dL Borderline high LDL 160-189 mg/dL High LDL greater than 189 mg/dL Very high Performed By: #### B MP, CBC #### [address] Triglyceride w/Reflex 51 mg/dL Normal 0-149 [facility] Comment on above: Result Comment: TRIG ATP III CLASSIFICATION TRIG less than 150 mg/dL Normal TRIG 150-199 mg/dL Borderline high TRIG 200-500 mg/dL High TRIG greater than 500 mg/dL Very high Standard traceable to the Center for Disease Conrtrol and Prevention (CDC) test method. Performed By: #### B MP, CBC #### [address] VLDL CHOLESTEROL 10 mg/dL Normal [facility] Comment on above: Performed By: #### B MP, CBC #### [facility] [address] Lymphocytes Auto (Bld) [#/Vo l]Ordered By: Italia Moore on 01-22-2024 Lymphocytes (Bld) [#/Vol] N/A [facility] Lymphocytes/100 WBC Auto (Bl d)Ordered By: Italia Moore on 01-22-2024 Lymphocytes/100 WBC (Bld) N/A [facility] Lymphocytes/100 leukocytes i n Blood by Manual countOrdered By: Italia Moore on 01-22-2024 Lymphocytes/100 WBC (Bld) 22 % Normal 18-42 [facility] Comment on above: Performed By: #### B MP, CBC #### [facility] [address] [place] [address] MCH [Entitic mass] by Automa amparo countOrdered By: Italia Moore on 01-22-2024 MCH (RBC) [Entitic mass] 30.1 pg Normal 27.5-35.2 [facility] Comment on above: Performed By: #### B MP, CBC #### [facility] [address] [place] [address] MCHC Auto (RBC) [Mass/Vol]Or dered By: Italia Moore on 01-22-2024 MCHC (RBC) [Mass/Vol] 33.2 g/dL 32.5-35.6 [facility] MCV [Entitic volume] by Auto mated countOrdered By: Italia Moore on 01-22-2024 MCV (RBC) [Entitic vol] 90.9 fL Normal 83.5-101 [facility] Comment on above: Performed By: #### B MP, CBC #### [facility] [address] [place] [address] Manual blood segmented neutr ophils/100 leukocytesOrdered By: Italia Moore on 01-22-2024 Segmented neutrophils/100 WBC (Bld) 62 % Normal 50-70 [facility] Comment on above: Performed By: #### B MP, CBC #### [facility] [address] [place] [address] Microcytes LM Ql (Bld)Ordere d By: Italia Moore on 01-22-2024 Microcytes Ql (Bld) Slight [facility] Monocytes Auto (Bld) [#/Vol] Ordered By: Italia Moore on 01-22-2024 Monocytes (Bld) [#/Vol] N/A [facility] Monocytes/100 WBC Auto (Bld) Ordered By: Italia Moore on 01-22-2024 Monocytes/100 WBC (Bld) N/A [facility] Monocytes/100 leukocytes in Blood by Manual countOrdered By: Italia Moore on 01-22-2024 Monocytes/100 WBC (Bld) 12 % High 2-11 [facility] Comment on above: Performed By: #### B MP, CBC #### [facility] [address] Myelocytes/100 WBC Manual cn t (Bld)Ordered By: Italia Moore on 01-22-2024 Myelocytes/100 WBC (Bld) 3 % High 0-0 [facility] Neutrophils Auto (Bld) [#/Vo l]Ordered By: Italia Moore on 01-22-2024 Neutrophils (Bld) [#/Vol] N/A [facility] Neutrophils/100 WBC Auto (Bl d)Ordered By: Italia oMore on 01-22-2024 Neutrophils/100 WBC (Bld) N/A [facility] No Panel InformationOrdered By: Italia Moore on 01-22-2024 Estimated GFR (CKD-EPI) > 60.0 mL/Min [facility] Creatinine Clearance (Chem 65.05 [facility] > 60.0 mL/Min [facility] 65.05 [facility] Nucleated erythrocytes [Pres ence] in Blood by Automated countOrdered By: Italia Moore on 01-22-2024 Nucleated RBC Auto Ql (Bld) N/A [facility] Platelet adequacy [Presence] in Blood by Light microscopyOrdered By: Italia Moore on 01-22-2024 Platelets LM Ql (Bld) Decreased Normal [facility] Platelet mean volume [Entiti c volume] in Blood by Automated countOrdered By: Italia Moore on 01-22-2024 Platelet mean volume (Bld) [Entitic vol] 8.5 fL Normal 6.6-10.1 [facility] Comment on above: Result Comment: PERF ORMED BY: [place] [address] PATHOLOGIST SANITATION DIRECTOR TEIR EDMOND M.D. Performed By: #### B MP, CBC #### [facility] [address] [place] [address] Platelet morphology finding [Identifier] in BloodOrdered By: Italia Moore on 01-22-2024 Platelet morphology finding Nom (Bld) Normal Normal [facility] Platelets [#/volume] in Bloo d by Automated countOrdered By: Italia Moore on 01-22-2024 Platelets (Bld) [#/Vol] 115 10*3/uL Significant change down 150-450 [facility] Comment on above: Delta: 141 on -1513 Performed By: #### B MP, CBC #### [facility] [address] Potassium [Moles/volume] in Serum or PlasmaOrdered By: Italia Moore on 01-22-2024 Potassium [Moles/Vol] 4.1 mmol/L Normal 3.5-5.1 [facility] Comment on above: Performed By: #### B MP, CBC #### [facility] [address] Prothrombin time (PT)Ordered By: Italia Moore on 01-22-2024 PT Coag (PPP) [Time] 24.8 s High 9.0-12.9 [facility] Comment on above: A hematocrit value g reater than 55% may lead to inaccurate results in coagulation testing. Patients having hematocrit values >55% require a special collection tube for coagulation studies. Please contact the laboratory at [phone] for redraw instructions. Result Comment: A he matocrit value greater than 55% may lead to inaccurate results in coagulation testing. Patients having hematocrit values >55% require a special collection tube for coagulation studies. Please contact the laboratory at [phone] for redraw instructions. Performed By: #### C OVID 19 [facility] #### [facility] [address] [place] [id number] [facility] RBC morphologyOrdered By: Chyna Moore on 01-22-2024 RBC morphology finding Nom (Bld) N/A [facility] Serum or plasma anion gap de terminationOrdered By: Italia Moore on 01-22-2024 Anion gap [Moles/Vol] 8.5 mmol/L Normal 6.0-15.0 [facility] Comment on above: Performed By: #### B MP, CBC #### [facility] [address] Serum or plasma high density lipoprotein (HDL) cholesterol measurementOrdered By: Italia Moore on 01-22-2024 Cholesterol in HDL [Mass/Vol] 71 mg/dL Normal 23-92 [facility] Comment on above: HDL CHOL ATP-III CLA SSIFICATION Cardiovascular RiskHDL > or equal to 60 mg/dL LOWHDL < 40 mg/dL HIGH Result Comment: HDL CHOL ATP-III CLASSIFICATION Cardiovascular Risk HDL > or equal to 60 mg/dL LOW HDL < 40 mg/dL HIGH Performed By: #### B MP, CBC #### [facility] [address] [place] [address] Serum or plasma total choles terol/high density lipoprotein (HDL) cholesterol mass ratOrdered By: Italia Moore on 01-22-2024 Cholesterol.total/Chol esterol in HDL [Mass ratio] 1.7 {ratio} Normal <5.0 [facility] Comment on above: Result Comment: PERF ORMED BY: [place] [address] PATHOLOGIST SANITATION DIRECTOR TERI EDMOND M.D. Performed By: #### B MP, CBC #### [address] Sodium [Moles/volume] in Ser um or PlasmaOrdered By: Italia Moore on 01-22-2024 Sodium [Moles/Vol] 141 mmol/L Normal 136-145 [facility] Comment on above: Performed By: #### B MP, CBC #### [facility] [address] Triglyceride [Mass/volume] i n Serum or PlasmaOrdered By: Italia Moore on 01-22-2024 Triglyceride [Mass/Vol] 51 mg/dL 0-149 [facility] Comment on above: TRIG ATP III CLASSIF ICATIONTRIG less than 150 mg/dL NormalTRIG 150-199 mg/dL Borderline highTRIG 200-500 mg/dL High TRIG greater than 500 mg/dL Very highStandard traceable to the Center for Disease Conrtrol and Prevention (CDC) test method. Urea nitrogen [Mass/volume] in Serum or PlasmaOrdered By: Italia Moore on 01-22-2024 Urea nitrogen [Mass/Vol] 19 mg/dL Normal 7-25 [facility] Comment on above: Performed By: #### B MP, CBC #### [facility] [address] [place] [address] Anisocytosis [Presence] in B lood by Light microscopyOrdered By: Mick Putnam on 01-21-2024 Anisocytosis Ql (Bld) Slight Normal [facility] Comment on above: Performed By: #### P T #### [address] Basic Metabolic Panelon Creatinine Clr Calc Pharmacy 61.06 Normal [facility] Comment on above: Result Comment: PERF ORMED BY: [place] [address] PATHOLOGIST SANITATION DIRECTOR TERI EDMOND M.D. Performed By: #### P T #### [address] GFR/1.73 sq M.predicted MDRD (S/P/Bld) [Vol rate/Area] mL/min/{1.73_m2} Normal [facility] Comment on above: Performed By: #### P T #### [place] [address] [place] Basophils Auto (Bld) [#/Vol] Ordered By: Mick Putnam on 01-21-2024 Basophils (Bld) [#/Vol] N/A [facility] Basophils/100 WBC Auto (Bld) Ordered By: Mick Putnam on 01-21-2024 Basophils/100 WBC (Bld) N/A [facility] CT angio headon 01-21-2024 CT angio head [facility] [place] [address] [place] [address] CT Scan Report Signed Patient: Fani Chua MR#: [id number] : 1935 Acct:[id number] Age/Sex: 88 / M ADM Date: 01/21/24 Loc: ER Room: Type: PRE ER Attending Dr: Copies to: Mick Putnam DO Ordering Provider: Mick Putnam DO Date of Service: 01/21/24 CT/CT angio head: left arm numbness ([id number]) CT/CT angio neck: left arm numbness ([id number]) CT/CT head stroke alert wo con: acute [...] occlusion. Impression dictated by: Henry Ramirez Jr., Omar01/21/2024 3:47 PM Dictation Location: [place] [address] Transcribed By: [facility] 01/21/24 1547 Dictated By: Henry Ramirez Jr, DO 01/21/24 1535 Signed By: 01/21/24 1547 Normal [facility] Calcium [Mass/volume] in Ser um or PlasmaOrdered By: Mick Putnam on 01-21-2024 Calcium [Mass/Vol] 9.0 mg/dL Normal 8.6-10.3 [facility] Comment on above: Performed By: #### P T #### [address] Capillary blood glucose tiffanie urement by glucometer (mass/volume)Ordered By: Mick Putnam on 01-21-2024 Glucose [Mass/Vol] 107 mg/dL Normal [facility] Comment on above: Random Glucose Refer ence Range is dependent on time and content of last meal. Glucose of more than 200 mg/dL in a nonstressed, ambulatory subject supports the diagnosis of Diabetes Mellitus. Result Comment: [place] om Glucose Reference Range is dependent on time and content of last meal. Glucose of more than 200 mg/dL in a nonstressed, ambulatory subject supports the diagnosis of Diabetes Mellitus. PERFORMED BY: [address] [place] [address] PATHOLOGIST SANITATION DIRECTOR TERI EDMOND M.D. Performed By: #### B MP, CBC #### [facility] [address] [place] [address] [place] Carbon dioxide, total [Moles /volume] in Serum or PlasmaOrdered By: Mick Putnam on 01-21-2024 CO2 [Moles/Vol] 25.8 mmol/L Normal 21.0-31.0 [facility] Comment on above: Performed By: #### P T #### [place] [address] [place] Chloride [Moles/volume] in S aime or PlasmaOrdered By: Mick Putnam on 01-21-2024 Chloride [Moles/Vol] 104 mmol/L Normal 98-107 [facility] Comment on above: Performed By: #### P T #### [address] Creatinine [Mass/volume] in Serum or PlasmaOrdered By: Mick Putnam on 01-21-2024 Creatinine [Mass/Vol] 0.88 mg/dL Normal 0.70-1.30 [facility] Comment on above: Performed By: #### P T #### [address] Diff and CBCon 01-21-2024 Mean Corpuscular HGB Conc 33.0 g/dL Normal 32.5-35.6 [facility] Comment on above: Performed By: #### P T #### [address] Monocytes/100 WBC (Bld) 17.72 % Normal 0.00-20.00 [facility] Comment on above: Performed By: #### P T #### [address] Myelocytes 3 % High 0-0 [facility] Comment on above: Performed By: #### P T #### [address] Ovalocytes Slight Normal [facility] Comment on above: Performed By: #### P T #### [address] Platelet Estimate Decreased Normal Normal [facility] Comment on above: Performed By: #### P T #### [address] Platelet Morphology Normal Normal Normal [facility] Comment on above: Result Comment: PERF ORMED BY: [address] [place] [address] PATHOLOGIST SANITATION DIRECTOR TERI EDMOND M.D. Performed By: #### P T #### [facility] [address] [place] [address] Poikilocytosis Slight Normal [facility] Comment on above: Performed By: #### P T #### [facility] [address] [place] [address] ECG 12 lead ECGon 01-21-2024 ECG 12 lead ECG [facility] [place] [address] [place] [address] Electrocardiograph Report Signed Patient: Fani Chua MR#: [id number] : 1935 Acct:[id number] Age/Sex: 88 / M ADM Date: 01/21/24 [...] was found Confirmed by Tay Wood DO ([id number]) on 01/21/2024 3:31:04 PM Referred By: Electronically Signed By: Tay Wood DO Transcribed By: MUS Signed By Tay Wood DO 4 1531 Normal [facility] Eosinophils Auto (Bld) [#/Vo l]Ordered By: Mick Putnam on 01-21-2024 Eosinophils (Bld) [#/Vol] N/A [facility] Eosinophils/100 WBC Auto (Bl d)Ordered By: Mick Putnam on 01-21-2024 Eosinophils/100 WBC (Bld) N/A [facility] Eosinophils/100 leukocytes i n Blood by Manual countOrdered By: Mick Putnam on 01-21-2024 Eosinophils/100 WBC (Bld) 2 % Normal 1-3 [facility] Comment on above: Performed By: #### P T #### [facility] [address] Erythrocyte distribution wid th [Ratio] by Automated countOrdered By: Mick Putnam on 01-21-2024 Erythrocyte distribution width (RBC) [Ratio] 16.7 % High 12.0-14.8 [facility] Comment on above: Performed By: #### P T #### [facility] [address] Erythrocytes [#/volume] in B lood by Automated countOrdered By: Mick Putnam on 01-21-2024 RBC (Bld) [#/Vol] 4.10 10*6/uL Normal 3.90-5.60 [facility] Comment on above: Performed By: #### P T #### [address] Glucose [Mass/volume] in Ser um or PlasmaOrdered By: Mick Putnam on 01-21-2024 Glucose [Mass/Vol] 107 mg/dL High 70-100 [facility] Comment on above: ADA recommended refe rence rangeRandom Glucose Reference Range is dependent on time and content of last meal. Glucose of more than 200 mg/dL in a nonstressed, ambulatory subject supports the diagnosis of Diabetes Mellitus. Result Comment: [place] om Glucose Reference Range is dependent on time and content of last meal. Glucose of more than 200 mg/dL in a nonstressed, ambulatory subject supports the diagnosis of Diabetes Mellitus. ADA recommended reference range Performed By: #### P T #### [facility] [address] Hematocrit [Volume Fraction] of Blood by Automated countOrdered By: Mick Putnam on 01-21-2024 Hematocrit (Bld) [Volume fraction] 37.4 % Low 38.8-50.0 [facility] Comment on above: Performed By: #### P T #### [place] [address] [place] Hemoglobin [Mass/volume] in BloodOrdered By: Mick Putnam on 01-21-2024 Hemoglobin (Bld) [Mass/Vol] 12.3 g/dL Low 13.0-17.0 [facility] Comment on above: Performed By: #### P T #### [facility] [address] [place] [address] INR in Platelet poor plasma by Coagulation assayOrdered By: Mick Putnam on 01-21-2024 INR Coag (PPP) [Relative time] 2.5 {INR} Normal [facility] Comment on above: INR Therapeutic Rang e [...] heart valves: 3 - 4.5 PERFORMED BY: [place] [address] PATHOLOGIST SANITATION DIRECTOR TERI EDMOND M.D. Performed By: #### B MP, CBC #### [facility] [address] [place] [address] Leukocytes [#/volume] correc amparo for nucleated erythrocytes in Blood by Automated counOrdered By: Mick Putnam on 01-21-2024 WBC corrected for nucl RBC Auto (Bld) [#/Vol] 7.3 10*3/uL 4.1-10.5 [facility] Leukocytes [#/volume] in Blo od by Automated countOrdered By: Mick Putnam on 01-21-2024 WBC (Bld) [#/Vol] 7.3 10*3/uL Normal 4.1-10.5 [facility] Comment on above: Performed By: #### P T #### [facility] [address] Lymphocytes Auto (Bld) [#/Vo l]Ordered By: Mick Putnam on 01-21-2024 Lymphocytes (Bld) [#/Vol] N/A [facility] Lymphocytes/100 WBC Auto (Bl d)Ordered By: Mick Putnam on 01-21-2024 Lymphocytes/100 WBC (Bld) N/A [facility] Lymphocytes/100 leukocytes i n Blood by Manual countOrdered By: Mick Putnam on 01-21-2024 Lymphocytes/100 WBC (Bld) 20 % Normal 18-42 [facility] Comment on above: Performed By: #### P T #### [address] MCH [Entitic mass] by Automa amparo countOrdered By: Mick Putnam on 01-21-2024 MCH (RBC) [Entitic mass] 30.1 pg Normal 27.5-35.2 [facility] Comment on above: Performed By: #### P T #### [facility] [address] [place] [address] MCHC Auto (RBC) [Mass/Vol]Or dered By: Mick Putnam on 01-21-2024 MCHC (RBC) [Mass/Vol] 33.0 g/dL 32.5-35.6 [facility] MCV [Entitic volume] by Auto mated countOrdered By: Mick Putnam on 01-21-2024 MCV (RBC) [Entitic vol] 91.2 fL Normal 83.5-101 [facility] Comment on above: Performed By: #### P T #### [address] Manual blood segmented neutr ophils/100 leukocytesOrdered By: Mick Putnam on 01-21-2024 Segmented neutrophils/100 WBC (Bld) 66 % Normal 50-70 [facility] Comment on above: Performed By: #### P T #### [facility] [address] [place] [id number] [facility] Monocyte distribution width [Entitic volume] in Blood by AutomatedOrdered By: Mick Putnam on 01-21-2024 Monocyte distribution width Auto (Bld) [Entitic vol] 17.72 % 0.00-20.00 [facility] Monocytes Auto (Bld) [#/Vol] Ordered By: Mick Putnam on 01-21-2024 Monocytes (Bld) [#/Vol] N/A [facility] Monocytes/100 WBC Auto (Bld) Ordered By: Mick Putnam on 01-21-2024 Monocytes/100 WBC (Bld) N/A [facility] Monocytes/100 leukocytes in Blood by Manual countOrdered By: Mick Putnam on 01-21-2024 Monocytes/100 WBC (Bld) 10 % Normal 2-11 [facility] Comment on above: Performed By: #### P T #### [facility] [address] [place] [address] Myelocytes/100 WBC Manual cn t (Bld)Ordered By: Mick Putnam on 01-21-2024 Myelocytes/100 WBC (Bld) 3 % High 0-0 [facility] Neutrophils Auto (Bld) [#/Vo l]Ordered By: Mick Putnam on 01-21-2024 Neutrophils (Bld) [#/Vol] N/A [facility] Neutrophils/100 WBC Auto (Bl d)Ordered By: Mick Putnam on 01-21-2024 Neutrophils/100 WBC (Bld) N/A [facility] No Panel InformationOrdered By: Mick Putnam on 01-21-2024 Estimated GFR (CKD-EPI) > 60.0 mL/Min [facility] Creatinine Clearance (Chem 61.06 [facility] Nucleated erythrocytes [Pres ence] in Blood by Automated countOrdered By: Mick Putnam on 01-21-2024 Nucleated RBC Auto Ql (Bld) N/A [facility] Ovalocyte detectionOrdered B y: Mick Putnam on 01-21-2024 Ovalocytes LM Ql (Bld) Slight [facility] Platelet adequacy [Presence] in Blood by Light microscopyOrdered By: Mick Putnam on 01-21-2024 Platelets LM Ql (Bld) Decreased Normal [facility] Platelet mean volume [Entiti c volume] in Blood by Automated countOrdered By: Mick Putnam on 01-21-2024 Platelet mean volume (Bld) [Entitic vol] 8.7 fL Normal 6.6-10.1 [facility] Comment on above: Performed By: #### P T #### [facility] [address] [place] [address] Platelet morphology finding [Identifier] in BloodOrdered By: Mick Putnam on 01-21-2024 Platelet morphology finding Nom (Bld) Normal Normal [facility] Platelets [#/volume] in Bloo d by Automated countOrdered By: Mick Putnam on 01-21-2024 Platelets (Bld) [#/Vol] 141 10*3/uL Low 150-450 [facility] Comment on above: Performed By: #### P T #### [facility] [address] [place] [address] Poikilocytosis [Presence] in Blood by Light microscopyOrdered By: Mick Putnam on 01-21-2024 Poikilocytosis LM Ql (Bld) Slight [facility] Potassium [Moles/volume] in Serum or PlasmaOrdered By: Mick Putnam on 01-21-2024 Potassium [Moles/Vol] 4.1 mmol/L Normal 3.5-5.1 [facility] Comment on above: Performed By: #### P T #### [facility] [address] [place] [address] Prothrombin time (PT)Ordered By: Mick Putnam on 01-21-2024 PT Coag (PPP) [Time] 28.2 s High 9.0-12.9 [facility] Comment on above: A hematocrit value g reater than 55% may lead to inaccurate results in coagulation testing. Patients having hematocrit values >55% require a special collection tube for coagulation studies. Please contact the laboratory at [phone] for redraw instructions. Result Comment: A he matocrit value greater than 55% may lead to inaccurate results in coagulation testing. Patients having hematocrit values >55% require a special collection tube for coagulation studies. Please contact the laboratory at [phone] for redraw instructions. Performed By: #### B MP, CBC #### [address] [address] RBC morphologyOrdered By: Chito Putnam on 01-21-2024 RBC morphology finding Nom (Bld) N/A [facility] Serum or plasma anion gap de terminationOrdered By: Mick Putnam on 01-21-2024 Anion gap [Moles/Vol] 10.3 mmol/L Normal 6.0-15.0 [facility] Comment on above: Performed By: #### P T #### [address] Sodium [Moles/volume] in Ser um or PlasmaOrdered By: Mick Putnam on 01-21-2024 Sodium [Moles/Vol] 136 mmol/L Normal 136-145 [facility] Comment on above: Performed By: #### P T #### [address] Troponin I High Sensitivityo n 01-21-2024 Troponin I High Sensitivity 14.8 pg/mL Normal 0.0-20.0 [facility] Comment on above: Result Comment: PERF ORMED BY: [place] [address] PATHOLOGIST SANITATION DIRECTOR TERI EDMOND M.D. Performed By: #### P T #### [address] Troponin I High Sensitivity 13.9 pg/mL Normal 0.0-20.0 [facility] Comment on above: Result Comment: PERF ORMED BY: [place] [address] PATHOLOGIST SANITATION DIRECTOR TERI EDMOND M.D. Performed By: #### P T #### [facility] [address] [place], [place] [id number] [facility] Troponin I.cardiac [Mass/vol ume] in Serum or Plasma by Detection limit <= 0.01 ng/Ordered By: Mick Putnam on 01-21-2024 Troponin I.cardiac DL <= 0.01 ng/mL [Mass/Vol] 14.8 pg/mL 0.0-20.0 [facility] Urea nitrogen [Mass/volume] in Serum or PlasmaOrdered By: Mick Putnam on 01-21-2024 Urea nitrogen [Mass/Vol] 23 mg/dL Normal 7-25 [facility] Comment on above: Performed By: #### P T #### [facility] [address] [place] [address] XR chest 1V portableon 01-20 XR chest 1V portable [facility] [place] [address] [place] [address] XRay Report Signed Patient: Fani Chua MR#: [id number] : 1935 Acct:[id number] Age/Sex: 88 / M ADM Date: 01/21/24 [...] Ramirez Jr., D.ORachel01/21/2024 3:58 PM Dictation Location: [place] [address] Transcribed By: [facility] 01/21/24 1558 Dictated By: Henry Ramirez Jr, DO 01/21/24 1558 Signed By: 01/21/24 1558 Normal [facility] XR knee RT 3V - NOT FOR ER U Nat 01-06-2024 XR knee RT 3V - NOT FOR ER USE [facility] [place] [address] [place] [address] XRay Report Signed Patient: Fani Chua MR#: [id number] : 1935 Acct:[id number] Age/Sex: 88 / M ADM Date: 01/06/24 Loc: [facility] Room: Type: [facility] Attending Dr: Roly Morales DO Copies to: [...] FRACTURE. Impression dictated by: Henry Ramirez Jr., DRachelORachel01/06/2024 4:03 PM Dictation Location: [place] [address] Transcribed By: [facility] 01/06/24 1603 Dictated By: Henry Ramirez Jr, DO 01/06/24 1601 Signed By: 01/06/24 1603 Normal [facility] INR in Platelet poor plasma by Coagulation assayOrdered By: Henry Clark on 12-29-2023 INR Coag (PPP) [Relative time] 1.9 {INR} Normal [facility] Comment on above: INR Therapeutic Rang e [...] heart valves: 3 - 4.5 PERFORMED BY: [address] [id number] PATHOLOGIST SANITATION DIRECTOR TERI EDMOND M.D. Performed By: #### P T #### [facility] [address] [place] [id number] [facility] Prothrombin time (PT)Ordered By: Henry Clark on 12-29-2023 PT Coag (PPP) [Time] 21.9 s High 9.0-12.9 [facility] Comment on above: A hematocrit value g reater than 55% may lead to inaccurate results in coagulation testing. Patients having hematocrit values >55% require a special collection tube for coagulation studies. Please contact the laboratory at [phone] for redraw instructions. Result Comment: A he matocrit value greater than 55% may lead to inaccurate results in coagulation testing. Patients having hematocrit values >55% require a special collection tube for coagulation studies. Please contact the laboratory at [phone] for redraw instructions. Performed By: #### P T #### [facility] [address] [place] [address] [place] Prothrombin Time INRon 12-27 INR Coag (PPP) [Relative time] 1.9 {INR} Normal [facility] Comment on above: Result [...] heart valves: 3 - 4.5 PERFORMED BY: [address] [address] PATHOLOGIST SANITATION DIRECTOR TERI EDMOND M.D. Performed By: #### P T #### [facility] [address] [place] [address] [facility] PT Coag (PPP) [Time] 22.0 s High 9.0-12.9 [facility] Comment on above: Result Comment: A he matocrit value greater than 55% may lead to inaccurate results in coagulation testing. Patients having hematocrit values >55% require a special collection tube for coagulation studies. Please contact the laboratory at [phone] for redraw instructions. Performed By: #### P T #### [place] [id number] [facility] Prothrombin Time INRon 12-26 INR Coag (PPP) [Relative time] 2.2 {INR} Normal [facility] Comment on above: Result [...] heart valves: 3 - 4.5 PERFORMED BY: [place] [address] PATHOLOGIST SANITATION DIRECTOR TERI EDMOND M.D. Performed By: #### B MP, CBC #### [place] [phone] [facility] PT Coag (PPP) [Time] 24.5 s High 9.0-12.9 [facility] Comment on above: Result Comment: A he matocrit value greater than 55% may lead to inaccurate results in coagulation testing. Patients having hematocrit values >55% require a special collection tube for coagulation studies. Please contact the laboratory at [phone] for redraw instructions. 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 This test has not been FDA cleared [...] is terminated or revoked sooner. PERFORMED BY: [place] [address] PATHOLOGIST SANITATION DIRECTOR TERI EDMOND M.D. Performed By: #### C [place] 19 [facility] #### [address] COVID-19 Positive/NegativeOr dered By: Henry Clark on 12-26-2023 SARS-CoV-2 (COVID-19) N gene SHARRI+probe Ql (Resp) Negative Negative [facility] Comment on above: Testing for SARS-CoV -2 by RT-PCRThis test was developed and its performance characteristics determined by [employer] ([employer]) and validated at the [facility]. This test has not been FDA cleared [...] (COVID-19) RNA SHARRI+probe Ql (Unsp spec) N/A [facility] No Panel InformationOrdered By: Henry Clark on 12-26-2023 N/A [facility] Prothrombin Time INRon 12-25 INR Coag (PPP) [Relative time] 2.2 {INR} Normal [facility] Comment on above: Order [...] heart valves: 3 - 4.5 PERFORMED BY: [place] [address] PATHOLOGIST SANITATION DIRECTOR TERI EDMOND M.D. Performed By: #### B MP, CBC #### [facility] [address] [place] [address] PT Coag (PPP) [Time] 24.9 s High 9.0-12.9 [facility] Comment on above: Order Comment: come back @8:30 pt in therapy Result Comment: A he matocrit value greater than 55% may lead to inaccurate results in coagulation testing. Patients having hematocrit values >55% require a special collection tube for coagulation studies. Please contact the laboratory at [phone] for redraw instructions. Performed By: #### B MP, CBC #### [facility] [address] [place] [address] Prothrombin Time INRon 12-24 INR Coag (PPP) [Relative time] 1.6 {INR} Normal [facility] Comment on above: Result [...] heart valves: 3 - 4.5 PERFORMED BY: [place] [address] PATHOLOGIST SANITATION DIRECTOR TERI EDMOND M.D. Performed By: #### P T #### [address] PT Coag (PPP) [Time] 18.0 s High 9.0-12.9 [facility] Comment on above: Result Comment: A he matocrit value greater than 55% may lead to inaccurate results in coagulation testing. Patients having hematocrit values >55% require a special collection tube for coagulation studies. Please contact the laboratory at [phone] for redraw instructions. Performed By: #### P T #### [place] [id number] [place] Alanine aminotransferase [En zymatic activity/volume] in Serum or PlasmaOrdered By: Henry Clark on 12-24-2023 ALT [Catalytic activity/Vol] 23 U/L Normal 7-52 [facility] Comment on above: Performed By: #### C OVID 19 [facility] #### [place] [id number] [place] Albumin [Mass/volume] in Ser um or Plasma by Bromocresol green (BCG) dye binding methoOrdered By: Henry Clark on 12-24-2023 Albumin BCG dye [Mass/Vol] 3.4 g/dL Low 3.5-5.7 [facility] Alkaline phosphatase [Enzyma tic activity/volume] in Serum or PlasmaOrdered By: Henry Clark on 12-24-2023 ALP [Catalytic activity/Vol] 83 U/L Normal 34-104 [facility] Comment on above: Performed By: #### C OVID 19 [facility] #### [place] [id number] [place] Aspartate aminotransferase [ Enzymatic activity/volume] in Serum or PlasmaOrdered By: Henry Clark on 12-24-2023 AST [Catalytic activity/Vol] 25 U/L Normal 13-39 [facility] Comment on above: Performed By: #### C [address] #### [address] Automated basophil %Ordered By: Henry Clark on 12-24-2023 Basophils/100 WBC (Bld) 0.5 % Normal . [facility] Comment on above: Performed By: #### C [address] #### [address] Automated basophil countOrde red By: Henry Clark on 12-24-2023 Basophils (Bld) [#/Vol] 0.0 10*3/uL Normal 0.0-0.2 [facility] Comment on above: Result Comment: PERF ORMED BY: [place] [address] PATHOLOGIST SANITATION DIRECTOR TERI EDMOND M.D. Performed By: #### C [address] #### [address] Automated blood monocyte cou ntOrdered By: Henry Clark on 12-24-2023 Monocytes (Bld) [#/Vol] 1.0 10*3/uL High 0.0-0.8 [facility] Comment on above: Performed By: #### C [address] #### [address] Automated eosinophil %Ordere d By: Henry Clark on 12-24-2023 Eosinophils/100 WBC (Bld) 2.6 % Normal . [facility] Comment on above: Performed By: #### C [address] #### [address] Automated eosinophil countOr dered By: Henry Clark on 12-24-2023 Eosinophils (Bld) [#/Vol] 0.2 10*3/uL Normal 0.0-0.45 [facility] Comment on above: Performed By: #### C [address] #### [facility] [address] Automated monocyte %Ordered By: Henry Clark on 12-24-2023 Monocytes/100 WBC (Bld) 14.8 % Normal . [facility] Comment on above: Performed By: #### C [place] 19 [facility] #### [facility] [address] Automated neutrophil %Ordere d By: Henry Clark on 12-24-2023 Neutrophils/100 WBC (Bld) 66.9 % Normal . [facility] Comment on above: Performed By: #### C [address] #### [facility] [address] Bilirubin.total [Mass/volume ] in Serum or PlasmaOrdered By: Henry Clark on 12-24-2023 Bilirubin [Mass/Vol] 1.0 mg/dL Normal 0.3-1.0 [facility] Comment on above: Performed By: #### C [address] #### [address] Calcium [Mass/volume] in Ser um or PlasmaOrdered By: Henry Clark on 12-24-2023 Calcium [Mass/Vol] 8.5 mg/dL Low 8.6-10.3 [facility] Comment on above: Performed By: #### C [address] #### [place] [address] [place] Carbon dioxide, total [Moles /volume] in Serum or PlasmaOrdered By: Henry Clark on 12-24-2023 CO2 [Moles/Vol] 25.3 mmol/L Normal 21.0-31.0 [facility] Comment on above: Performed By: #### C [address] #### [place] [address] [place] Chloride [Moles/volume] in S aime or PlasmaOrdered By: Henry Clark on 12-24-2023 Chloride [Moles/Vol] 102 mmol/L Normal 98-107 [facility] Comment on above: Performed By: #### C [address] #### [address] Complete Blood Count Auto Di ffon 12-24-2023 Mean Corpuscular HGB Conc 34.0 g/dL Normal 32.5-35.6 [facility] Comment on above: Performed By: #### C [place] 19 [facility] #### [address] NRBC% 0.2 /100{WBC} Normal 0-0.5 [facility] Comment on above: Performed By: #### C [place] 19 [facility] #### [address] Comprehensive Metabolic Pane rui 12-24-2023 Albumin [Mass/Vol] 3.4 g/dL Low 3.5-5.7 [facility] Comment on above: Performed By: #### C OVID 19 [facility] #### [address] Creatinine Clr Calc Pharmacy 59.23 Normal [facility] Comment on above: Performed By: #### C [place] 19 [facility] #### [address] GFR/1.73 sq M.predicted MDRD (S/P/Bld) [Vol rate/Area] mL/min/{1.73_m2} Normal [facility] Comment on above: Performed By: #### C [place] 19 [facility] #### [address] Creatinine [Mass/volume] in Serum or PlasmaOrdered By: Henry Clark on 12-24-2023 Creatinine [Mass/Vol] 0.87 mg/dL Normal 0.70-1.30 [facility] Comment on above: Performed By: #### C OVID 19 [facility] #### [address] Erythrocyte distribution wid th [Ratio] by Automated countOrdered By: Henry Clark on 12-24-2023 Erythrocyte distribution width (RBC) [Ratio] 15.1 % High 12.0-14.8 [facility] Comment on above: Performed By: #### C [address] #### [facility] [address] [place] [address] [place] Erythrocytes [#/volume] in B lood by Automated countOrdered By: Henry Clark on 12-24-2023 RBC (Bld) [#/Vol] 4.19 10*6/uL Normal 3.90-5.60 [facility] Comment on above: Performed By: #### C [address] #### [facility] [address] Glucose [Mass/volume] in Ser um or PlasmaOrdered By: Henry Clark on 12-24-2023 Glucose [Mass/Vol] 94 mg/dL Normal 70-100 [facility] Comment on above: ADA recommended refe rence rangeRandom Glucose Reference Range is dependent on time and content of last meal. Glucose of more than 200 mg/dL in a nonstressed, ambulatory subject supports the diagnosis of Diabetes Mellitus. Result Comment: [place] om Glucose Reference Range is dependent on time and content of last meal. Glucose of more than 200 mg/dL in a nonstressed, ambulatory subject supports the diagnosis of Diabetes Mellitus. ADA recommended reference range Performed By: #### C [address] #### [address] Hematocrit [Volume Fraction] of Blood by Automated countOrdered By: Henry Clark on 12-24-2023 Hematocrit (Bld) [Volume fraction] 37.2 % Low 38.8-50.0 [facility] Comment on above: Performed By: #### C [address] #### [facility] 1111 [place] [id number] [facility] Hemoglobin [Mass/volume] in BloodOrdered By: Henry Clark on 12-24-2023 Hemoglobin (Bld) [Mass/Vol] 12.7 g/dL Low 13.0-17.0 [facility] Comment on above: Performed By: #### C [address] #### [place] [id number] [place] Leukocytes [#/volume] correc amparo for nucleated erythrocytes in Blood by Automated counOrdered By: Henry Clark on 12-24-2023 WBC corrected for nucl RBC Auto (Bld) [#/Vol] 6.5 10*3/uL 4.1-10.5 [facility] Leukocytes [#/volume] in Blo od by Automated countOrdered By: Henry Clark on 12-24-2023 WBC (Bld) [#/Vol] 6.5 10*3/uL Normal 4.1-10.5 [facility] Comment on above: Performed By: #### C OVID 19 [facility] #### [place] [address] [place] Lymphocytes [#/volume] in Bl ood by Automated countOrdered By: Henry Clark on 12-24-2023 Lymphocytes (Bld) [#/Vol] 1.0 10*3/uL Normal 1.00-4.8 [facility] Comment on above: Performed By: #### C OVID 19 [facility] #### [place] [address] [place] Lymphocytes/100 leukocytes i n Blood by Automated countOrdered By: Henry Clark on 12-24-2023 Lymphocytes/100 WBC (Bld) 15.2 % Normal . [facility] Comment on above: Performed By: #### C [place] 19 [facility] #### [address] MCH [Entitic mass] by Automa amparo countOrdered By: Henry Clark on 12-24-2023 MCH (RBC) [Entitic mass] 30.2 pg Normal 27.5-35.2 [facility] Comment on above: Performed By: #### C [place] 19 [facility] #### [address] MCHC Auto (RBC) [Mass/Vol]Or dered By: Henry Clark on 12-24-2023 MCHC (RBC) [Mass/Vol] 34.0 g/dL 32.5-35.6 [facility] MCV [Entitic volume] by Auto mated countOrdered By: Henry Clark on 12-24-2023 MCV (RBC) [Entitic vol] 88.8 fL Normal 83.5-101 [facility] Comment on above: Performed By: #### C [place] 19 [facility] #### [facility] [address] Neutrophils [#/volume] in Bl ood by Automated countOrdered By: Henry Clark on 12-24-2023 Neutrophils (Bld) [#/Vol] 4.4 10*3/uL Normal 1.8-7.7 [facility] Comment on above: Performed By: #### C [place] 19 [facility] #### [facility] [address] No Panel InformationOrdered By: Henry Clark on 12-24-2023 Estimated GFR (CKD-EPI) > 60.0 mL/Min [facility] Creatinine Clearance (Chem 59.23 [facility] > 60.0 mL/Min [facility] 59.23 [facility] Nucleated erythrocytes [Pres ence] in Blood by Automated countOrdered By: Henry Clark on 12-24-2023 Nucleated RBC Auto Ql (Bld) 0.2 /100{WBC} 0-0.5 [facility] Platelet mean volume [Entiti c volume] in Blood by Automated countOrdered By: Henry Clark on 12-24-2023 Platelet mean volume (Bld) [Entitic vol] 8.5 fL Normal 6.6-10.1 [facility] Comment on above: Performed By: #### C [address] #### [facility] [address] Platelets [#/volume] in Bloo d by Automated countOrdered By: Henry Clark on 12-24-2023 Platelets (Bld) [#/Vol] 132 10*3/uL Low 150-450 [facility] Comment on above: Performed By: #### C [place] 19 [facility] #### [facility] [address] Potassium [Moles/volume] in Serum or PlasmaOrdered By: Henry Clark on 12-24-2023 Potassium [Moles/Vol] 4.4 mmol/L Normal 3.5-5.1 [facility] Comment on above: Performed By: #### C [place] 19 [facility] #### [facility] [address] Prealbumin [Mass/volume] in Serum or PlasmaOrdered By: Henry Clark on 12-24-2023 Prealbumin [Mass/Vol] 10.2 mg/dL Low 17.0-34.0 [facility] Comment on above: Result Comment: PERF ORMED BY: [place] [address] PATHOLOGIST SANITATION DIRECTOR TERI EDMOND M.D. Performed By: #### C [place] 19 [facility] #### [address] Protein [Mass/volume] in Ser um or PlasmaOrdered By: Henry Clark on 12-24-2023 Protein [Mass/Vol] 6.1 g/dL Low 6.4-8.9 [facility] Comment on above: Performed By: #### C [address] #### [place] [id number] [facility] Prothrombin Time INRon 12-23 INR Coag (PPP) [Relative time] 1.3 {INR} Normal [facility] Comment on above: Result [...] heart valves: 3 - 4.5 PERFORMED BY: [place] [address] PATHOLOGIST SANITATION DIRECTOR TERI EDMOND M.D. Performed By: #### C [address] #### [place] [id number] [facility] PT Coag (PPP) [Time] 14.7 s High 9.0-12.9 [facility] Comment on above: Result Comment: A he matocrit value greater than 55% may lead to inaccurate results in coagulation testing. Patients having hematocrit values >55% require a special collection tube for coagulation studies. Please contact the laboratory at [phone] for redraw instructions. Performed By: #### C [address] #### [address] Serum globulin measurement b y calculation (mass/volume)Ordered By: Henry Clark on 12-24-2023 Globulin (S) [Mass/Vol] 2.7 g/dL [facility] Comment on above: Performed By: #### C [address] #### [address] Serum or plasma albumin/glob ulin mass ratioOrdered By: Henry Clark on 12-24-2023 Albumin/Globulin [Mass ratio] 1.3 {ratio} [facility] Comment on above: Performed By: #### C [address] #### [address] Serum or plasma anion gap de terminationOrdered By: Henry Clark on 12-24-2023 Anion gap [Moles/Vol] 14.1 mmol/L Normal 6.0-15.0 [facility] Comment on above: Performed By: #### C [address] #### [address] Sodium [Moles/volume] in Ser um or PlasmaOrdered By: Henry Clark on 12-24-2023 Sodium [Moles/Vol] 137 mmol/L Normal 136-145 [facility] Comment on above: Performed By: #### C [address] #### [place] [id number] [place] Urea nitrogen [Mass/volume] in Serum or PlasmaOrdered By: Henry Clark on 12-24-2023 Urea nitrogen [Mass/Vol] 30 mg/dL High 7-25 [facility] Comment on above: Performed By: #### C [address] #### [place] [id number] [place] INR in Platelet poor plasma by Coagulation assayOrdered By: Hilario Skelton on 12-23-2023 INR Coag (PPP) [Relative time] 1.3 {INR} Normal [facility] Comment on above: INR Therapeutic Rang e [...] heart valves: 3 - 4.5 PERFORMED BY: [place] [address] PATHOLOGIST SANITATION DIRECTOR TERI EDMOND M.D. Performed By: #### P T #### [facility] [address] [place] [id number] Prothrombin time (PT)Ordered By: Hilario Skelton on 12-23-2023 PT Coag (PPP) [Time] 15.2 s High 9.0-12.9 [facility] Comment on above: A hematocrit value g reater than 55% may lead to inaccurate results in coagulation testing. Patients having hematocrit values >55% require a special collection tube for coagulation studies. Please contact the laboratory at [phone] for redraw instructions. Result Comment: A he matocrit value greater than 55% may lead to inaccurate results in coagulation testing. Patients having hematocrit values >55% require a special collection tube for coagulation studies. Please contact the laboratory at [phone] for redraw instructions. Performed By: #### P T #### [facility] [address] [place] [address] [facility] Automated basophil %Ordered By: Ashley Merrtit on 12-22-2023 Basophils/100 WBC (Bld) 0.5 % Normal . [facility] Comment on above: Performed By: #### B MP, CBC #### [address] Automated basophil countOrde red By: Ashley Merritt on 12-22-2023 Basophils (Bld) [#/Vol] 0.0 10*3/uL Normal 0.0-0.2 [facility] Comment on above: Result Comment: PERF ORMED BY: [place] [address] PATHOLOGIST SANITATION DIRECTOR TERI EDMOND M.D. Performed By: #### B MP, CBC #### [address] Automated blood monocyte cou ntOrdered By: Ashley Merritt on 12-22-2023 Monocytes (Bld) [#/Vol] 1.3 10*3/uL High 0.0-0.8 [facility] Comment on above: Performed By: #### B MP, CBC #### [address] Automated eosinophil %Ordere d By: Ashley Merritt on 12-22-2023 Eosinophils/100 WBC (Bld) 0.8 % Normal . [facility] Comment on above: Performed By: #### B MP, CBC #### [address] Automated eosinophil countOr dered By: Ashley Merritt on 12-22-2023 Eosinophils (Bld) [#/Vol] 0.1 10*3/uL Normal 0.0-0.45 [facility] Comment on above: Performed By: #### B MP, CBC #### [address] Automated monocyte %Ordered By: Ashley Merritt on 12-22-2023 Monocytes/100 WBC (Bld) 14.6 % Normal . [facility] Comment on above: Performed By: #### B MP, CBC #### [address] Automated neutrophil %Ordere d By: Ashley Merritt on 12-22-2023 Neutrophils/100 WBC (Bld) 69.1 % Normal . [facility] Comment on above: Performed By: #### B MP, CBC #### [address] Basic Metabolic Panelon 07-0 Creatinine Clr Calc Pharmacy 58.48 Normal [facility] Comment on above: Result Comment: PERF ORMED BY: [place] [address] PATHOLOGIST SANITATION DIRECTOR TERI EDMOND M.D. Performed By: #### B MP, CBC #### [address] GFR/1.73 sq M.predicted MDRD (S/P/Bld) [Vol rate/Area] mL/min/{1.73_m2} Normal [facility] Comment on above: Performed By: #### B MP, CBC #### [address] Calcium [Mass/volume] in Ser um or PlasmaOrdered By: Ashley Merritt on 12-22-2023 Calcium [Mass/Vol] 9.1 mg/dL Normal 8.6-10.3 [facility] Comment on above: Performed By: #### B MP, CBC #### [place] [address] [place] Carbon dioxide, total [Moles /volume] in Serum or PlasmaOrdered By: Ashley Merritt on 12-22-2023 CO2 [Moles/Vol] 26.6 mmol/L Normal 21.0-31.0 [facility] Comment on above: Performed By: #### B MP, CBC #### [place] [address] [place] Chloride [Moles/volume] in S aime or PlasmaOrdered By: Ashley Shaina on 12-22-2023 Chloride [Moles/Vol] 102 mmol/L Normal 98-107 [facility] Comment on above: Performed By: #### B MP, CBC #### [address] Complete Blood Count Auto Di ffon 12-22-2023 Mean Corpuscular HGB Conc 32.9 g/dL Normal 32.5-35.6 [facility] Comment on above: Performed By: #### B MP, CBC #### [facility] [address] [place] [address] NRBC% 0.1 /100{WBC} Normal 0-0.5 [facility] Comment on above: Performed By: #### B MP, CBC #### [address] Creatinine [Mass/volume] in Serum or PlasmaOrdered By: Ashley Merritt on 12-22-2023 Creatinine [Mass/Vol] 0.89 mg/dL Normal 0.70-1.30 [facility] Comment on above: Performed By: #### B MP, CBC #### [address] Erythrocyte distribution wid th [Ratio] by Automated countOrdered By: Ashley Merritt on 12-22-2023 Erythrocyte distribution width (RBC) [Ratio] 15.5 % High 12.0-14.8 [facility] Comment on above: Performed By: #### B MP, CBC #### [address] Erythrocytes [#/volume] in B lood by Automated countOrdered By: Ashley Merritt on 12-22-2023 RBC (Bld) [#/Vol] 4.63 10*6/uL Normal 3.90-5.60 [facility] Comment on above: Performed By: #### B MP, CBC #### [place] [address] [place] Glucose [Mass/volume] in Ser um or PlasmaOrdered By: Ashley Merritt on 12-22-2023 Glucose [Mass/Vol] 153 mg/dL High 70-100 [facility] Comment on above: ADA recommended refe rence rangeRandom Glucose Reference Range is dependent on time and content of last meal. Glucose of more than 200 mg/dL in a nonstressed, ambulatory subject supports the diagnosis of Diabetes Mellitus. Result Comment: [facility] Glucose Reference Range is dependent on time and content of last meal. Glucose of more than 200 mg/dL in a nonstressed, ambulatory subject supports the diagnosis of Diabetes Mellitus. ADA recommended reference range Performed By: #### B MP, CBC #### [address] Hematocrit [Volume Fraction] of Blood by Automated countOrdered By: Ashley Merritt on 12-22-2023 Hematocrit (Bld) [Volume fraction] 41.3 % Normal 38.8-50.0 [facility] Comment on above: Performed By: #### B MP, CBC #### [address] Hemoglobin [Mass/volume] in BloodOrdered By: Ashley Merritt on 12-22-2023 Hemoglobin (Bld) [Mass/Vol] 13.6 g/dL Normal 13.0-17.0 [facility] Comment on above: Performed By: #### B MP, CBC #### [address] Leukocytes [#/volume] correc amparo for nucleated erythrocytes in Blood by Automated counOrdered By: Ashley Merritt on 12-22-2023 WBC corrected for nucl RBC Auto (Bld) [#/Vol] 9.0 10*3/uL 4.1-10.5 [facility] Leukocytes [#/volume] in Blo od by Automated countOrdered By: Ashley Merritt on 12-22-2023 WBC (Bld) [#/Vol] 9.0 10*3/uL Normal 4.1-10.5 [facility] Comment on above: Performed By: #### B MP, CBC #### [place] [address] [place] Lymphocytes [#/volume] in Bl ood by Automated countOrdered By: Ashley Merritt on 12-22-2023 Lymphocytes (Bld) [#/Vol] 1.4 10*3/uL Normal 1.00-4.8 [facility] Comment on above: Performed By: #### B MP, CBC #### [address] Lymphocytes/100 leukocytes i n Blood by Automated countOrdered By: Ashley Merritt on 12-22-2023 Lymphocytes/100 WBC (Bld) 15.0 % Normal . [facility] Comment on above: Performed By: #### B MP, CBC #### [address] MCH [Entitic mass] by Automa amparo countOrdered By: Ashley Merritt on 12-22-2023 MCH (RBC) [Entitic mass] 29.3 pg Normal 27.5-35.2 [facility] Comment on above: Performed By: #### B MP, CBC #### [address] MCHC Auto (RBC) [Mass/Vol]Or dered By: Ashley Merritt on 12-22-2023 MCHC (RBC) [Mass/Vol] 32.9 g/dL 32.5-35.6 [facility] MCV [Entitic volume] by Auto mated countOrdered By: Ashley Merritt on 12-22-2023 MCV (RBC) [Entitic vol] 89.2 fL Normal 83.5-101 [facility] Comment on above: Performed By: #### B MP, CBC #### [address] Neutrophils [#/volume] in Bl ood by Automated countOrdered By: Ashley Merritt on 12-22-2023 Neutrophils (Bld) [#/Vol] 6.2 10*3/uL Normal 1.8-7.7 [facility] Comment on above: Performed By: #### B MP, CBC #### [address] No Panel InformationOrdered By: Ashley Merritt on 12-22-2023 Estimated GFR (CKD-EPI) > 60.0 mL/Min [facility] Creatinine Clearance (Chem 58.48 [facility] > 60.0 mL/Min [facility] 58.48 [facility] Nucleated erythrocytes [Pres ence] in Blood by Automated countOrdered By: Ashley Merritt on 12-22-2023 Nucleated RBC Auto Ql (Bld) 0.1 /100{WBC} 0-0.5 [facility] Platelet mean volume [Entiti c volume] in Blood by Automated countOrdered By: Ashley Merritt on 12-22-2023 Platelet mean volume (Bld) [Entitic vol] 8.4 fL Normal 6.6-10.1 [facility] Comment on above: Performed By: #### B MP, CBC #### [facility] [address] [place] [address] Platelets [#/volume] in Bloo d by Automated countOrdered By: Ashley Merritt on 12-22-2023 Platelets (Bld) [#/Vol] 145 10*3/uL Low 150-450 [facility] Comment on above: Performed By: #### B MP, CBC #### [facility] [address] [place] [address] Potassium [Moles/volume] in Serum or PlasmaOrdered By: Ashley Merritt on 12-22-2023 Potassium [Moles/Vol] 3.8 mmol/L Normal 3.5-5.1 [facility] Comment on above: Performed By: #### B MP, CBC #### [facility] [address] [place] [address] Prothrombin Time INRon 12-21 INR Coag (PPP) [Relative time] 1.4 {INR} Normal [facility] Comment on above: Result [...] heart valves: 3 - 4.5 PERFORMED BY: [place] [address] PATHOLOGIST SANITATION DIRECTOR TERI EDMOND M.D. Performed By: #### B MP, CBC #### [address] PT Coag (PPP) [Time] 16.3 s High 9.0-12.9 [facility] Comment on above: Result Comment: A he matocrit value greater than 55% may lead to inaccurate results in coagulation testing. Patients having hematocrit values >55% require a special collection tube for coagulation studies. Please contact the laboratory at [phone] for redraw instructions. Performed By: #### B MP, CBC #### [address] Serum or plasma anion gap de terminationOrdered By: Ashley Merritt on 12-22-2023 Anion gap [Moles/Vol] 12.2 mmol/L Normal 6.0-15.0 [facility] Comment on above: Performed By: #### B MP, CBC #### [address] Sodium [Moles/volume] in Ser um or PlasmaOrdered By: Ashley Merritt on 12-22-2023 Sodium [Moles/Vol] 137 mmol/L Normal 136-145 [facility] Comment on above: Performed By: #### B MP, CBC #### [address] Urea nitrogen [Mass/volume] in Serum or PlasmaOrdered By: Ashley Merritt on 12-22-2023 Urea nitrogen [Mass/Vol] 25 mg/dL Normal 7-25 [facility] Comment on above: Performed By: #### B MP, CBC #### [address] XR knee RT 2Von 12-22-2023 XR knee RT 2V [facility] [place] [address] [place] [address] XRay Report Signed Patient: Fani Chua MR#: [id number] : 1935 Acct:[id number] Age/Sex: 88 / M ADM Date: 12/21/23 Loc: 4N Room: 1I1197-5 Type: ADM INOo Attending Dr: Ashley Merritt [...] Cyn Llamas M.D.12/22/2023 11:39 AM Dictation Location: [place] [address] Transcribed By: [facility] 12/22/23 1139 Dictated By: Cyn Llamas MD 12/22/23 1135 Signed By: 12/22/23 1139 Normal [facility] Activated partial thrombopla stin time (aPTT) in platelet poor plasma by coagulation aOrdered By: Rubio Crooks on 12-20-2023 aPTT Coag (PPP) [Time] 36.5 s 25.1-36.5 [facility] Comment on above: A hematocrit value g reater than 55% may lead to inaccurate results in coagulation testing. Patients having hematocrit values >55% require a special collection tube for coagulation studies. Please contact the laboratory at [phone] for redraw instructions. Alanine aminotransferase [En zymatic activity/volume] in Serum or PlasmaOrdered By: Rubio Crooks on 12-20-2023 ALT [Catalytic activity/Vol] 41 U/L Normal 7-52 [facility] Comment on above: Performed By: #### P P, MG, CMP, DIFF CBC #### [facility] [address] [place] [address] [place] Albumin [Mass/volume] in Ser um or Plasma by Bromocresol green (BCG) dye binding methoOrdered By: Rubio Crooks on 12-20-2023 Albumin BCG dye [Mass/Vol] 4.2 g/dL 3.5-5.7 [facility] Alkaline phosphatase [Enzyma tic activity/volume] in Serum or PlasmaOrdered By: Rubio Crooks on 12-20-2023 ALP [Catalytic activity/Vol] 87 U/L Normal 34-104 [facility] Comment on above: Performed By: #### P P, MG, CMP, DIFF CBC #### [facility] [address] [place] [address] [place] Anisocytosis [Presence] in B lood by Light microscopyOrdered By: Rubio Crooks on 12-20-2023 Anisocytosis Ql (Bld) Slight Normal [facility] Comment on above: Performed By: #### P P, MG, CMP, DIFF CBC ####[facility] [address] [place] [address] [place] Aspartate aminotransferase [ Enzymatic activity/volume] in Serum or PlasmaOrdered By: Rubio Crooks on 12-20-2023 AST [Catalytic activity/Vol] 38 U/L Normal 13-39 [facility] Comment on above: Performed By: #### P P, MG, CMP, DIFF CBC #### [facility] [address] [place] [address] [place] Bacteria [Presence] in Urine by AutomatedOrdered By: Rubio Crooks on 12-20-2023 Bacteria Auto Ql (U) None seen [HPF] None Seen [facility] Basophils Auto (Bld) [#/Vol] Ordered By: Rubio Crooks on 12-20-2023 Basophils (Bld) [#/Vol] N/A [facility] Basophils/100 WBC Auto (Bld) Ordered By: Rubio Crooks on 12-20-2023 Basophils/100 WBC (Bld) N/A [facility] Bilirubin Test strip Ql (U)O rdered By: Rubio Crooks on 12-20-2023 Bilirubin Ql (U) Negative Negative [facility] Bilirubin.total [Mass/volume ] in Serum or PlasmaOrdered By: Rubio Crooks on 12-20-2023 Bilirubin [Mass/Vol] 0.9 mg/dL Normal 0.3-1.0 [facility] Comment on above: Performed By: #### P P, MG, CMP, DIFF CBC #### [facility] [address] [place] [address] [place] cells [Presence] in Blo od by Light microscopyOrdered By: Rubio Crooks on 12-20-2023 Jihan cells LM Ql (Bld) Slight Fi [facility] CT abdomen pelvis w conon CT abdomen pelvis w con [facility] [place] [address] [place] [address] CT Scan Report Signed Patient: Fani Chua MR#: [id number] : 1935 Acct:[id number] Age/Sex: 88 / M ADM Date: 12/20/23 Loc: Room: [address] [place] [address] Type: ADM INOo Attending Dr: Betty Buchanan MD Copies to: MD Rubio Owen Jr, MD Ordering Provider: Rbuio Crooks Jr, MD Date of Service: 12/20/23 CT/CT chest w con: fall, R chest/rib pain ([id number]) CT/CT abdomen pelvis w con: fall, R [...] Cyn Llamas M.D.12/20/2023 10:43 AM Dictation Location: [place] [address] Transcribed By: [facility] 12/20/23 1043 Dictated By: Cyn Llamas MD 12/20/23 1033 Signed By: 12/20/23 1043 [facility] CT cervical spine wo conon 0 12-20-2023 CT cervical spine wo con [facility] [place] [address] [place] [address] CT Scan Report Signed Patient: Fani Chua MR#: [id number] : 1935 Acct:[id number] Age/Sex: 88 / M ADM Date: 12/20/23 Loc: Room: [address] [place] [address] Type: ADM INOo Attending Dr: Betty Buchanan MD Copies to: MD Rubio Owen Jr, MD Ordering Provider: Rubio Crooks Jr, MD Date of Service: 12/20/23 CT/CT head/brain wo con: fall, head injury, warfarin ([id number]) CT/CT cervical spine wo con: fall, head [...] Cyn Llamas M.D.12/20/2023 10:28 AM Dictation Location: [place] [address] Transcribed By: [facility] 12/20/23 1028 Dictated By: Cyn Llamas MD 12/20/23 1021 Signed By: 12/20/23 1028 Normal [facility] CT knee RT wo conon 12-20-19 CT knee RT wo con [facility] [place] [address] CT Scan Report Signed Patient: Fani Chua MR#: [id number] : 1935 Acct:[id number] Age/Sex: 88 / M ADM Date: 12/20/23 Loc: Room: [address] [place] [address] Type: ADM INOo Attending Dr: Betty Buchanan [...] Cyn Llamas M.D.12/20/2023 10:48 AM Dictation Location: [place] [address] Transcribed By: [facility] 12/20/23 1048 Dictated By: Cyn Llamas MD 12/20/23 1043 Signed By: 12/20/23 1048 Normal [facility] Calcium [Mass/volume] in Ser um or PlasmaOrdered By: Rubio Crooks on 12-20-2023 Calcium [Mass/Vol] 9.8 mg/dL Normal 8.6-10.3 [facility] Comment on above: Performed By: #### P P, MG, CMP, DIFF CBC #### [place] [id number] [facility] Carbon dioxide, total [Moles /volume] in Serum or PlasmaOrdered By: Rubio Crooks on 12-20-2023 CO2 [Moles/Vol] 27.0 mmol/L Normal 21.0-31.0 [facility] Comment on above: Performed By: #### P P, MG, CMP, DIFF CBC #### [facility] [address] [place], [place] [id number] [place] Chloride [Moles/volume] in S aime or PlasmaOrdered By: Rubio Crooks on 12-20-2023 Chloride [Moles/Vol] 106 mmol/L Normal 98-107 [facility] Comment on above: Performed By: #### P P, MG, CMP, DIFF CBC #### [facility] [address] [place], [place] [address] [place] Coagulation Profileon 2023 aPTT Coag (Bld) [Time] 36.5 s Normal 25.1-36.5 [facility] Comment on above: Result Comment: A he matocrit value greater than 55% may lead to inaccurate results in coagulation testing. Patients having hematocrit values >55% require a special collection tube for coagulation studies. Please contact the laboratory at [phone] for redraw instructions. PERFORMED BY: [place] [address] PATHOLOGIST SANITATION DIRECTOR TERI EDMOND M.D. Performed By: #### P P, MG, CMP, DIFF CBC #### [address] Color of Urine by AutoOrdere d By: Rubio Crooks on 12-20-2023 Color (U) Light-yellow Normal Yellow [facility] Comment on above: Order Comment: Name Collection Type:: Clean-Voided Midstream Performed By: #### B MP, CBC #### [address] Comprehensive Metabolic Pane rui 12-20-2023 Albumin [Mass/Vol] 4.2 g/dL Normal 3.5-5.7 [facility] Comment on above: Performed By: #### P P, MG, CMP, DIFF CBC #### [place] [address] [place] Creatinine Clr Calc Pharmacy 51.02 Normal [facility] Comment on above: Result Comment: PERF ORMED BY: [place] [address] PATHOLOGIST SANITATION DIRECTOR TERI EDMOND M.D. Performed By: #### P P, MG, CMP, DIFF CBC #### [address] GFR/1.73 sq M.predicted MDRD (S/P/Bld) [Vol rate/Area] mL/min/{1.73_m2} Normal [facility] Comment on above: Performed By: #### P P, MG, CMP, DIFF CBC #### [place] [address] [place] Creatinine [Mass/volume] in Serum or PlasmaOrdered By: Rubio Crooks on 12-20-2023 Creatinine [Mass/Vol] 1.02 mg/dL Normal 0.70-1.30 [facility] Comment on above: Performed By: #### P P, MG, CMP, DIFF CBC #### [facility] [address] Diff and CBCon 12-20-2023 Crenated RBC Slight Normal [facility] Comment on above: Performed By: #### P P, MG, CMP, DIFF CBC ####[address] Mean Corpuscular HGB Conc 33.4 g/dL Normal 32.5-35.6 [facility] Comment on above: Performed By: #### P P, MG, CMP, DIFF CBC ####[address] Monocytes/100 WBC (Bld) 17.52 % Normal 0.00-20.00 [facility] Comment on above: Performed By: #### P P, MG, CMP, DIFF CBC ####[address] Myelocytes 1 % High 0-0 [facility] Comment on above: Performed By: #### P P, MG, CMP, DIFF CBC ####[address] Ovalocytes Slight Normal [facility] Comment on above: Performed By: #### P P, MG, CMP, DIFF CBC ####[address] Platelet Estimate Normal Normal Normal [facility] Comment on above: Performed By: #### P P, MG, CMP, DIFF CBC ####[address] Platelet Morphology Normal Normal Normal [facility] Comment on above: Result Comment: PERF ORMED BY: [address] [place] [address] PATHOLOGIST SANITATION DIRECTOR TERI EDMOND M.D. Performed By: #### P P, MG, CMP, DIFF CBC ####[address] Poikilocytosis Slight Normal [facility] Comment on above: Performed By: #### P P, MG, CMP, DIFF CBC ####[facility] [place] [address] Polychromasia Slight Normal [facility] Comment on above: Performed By: #### P P, MG, CMP, DIFF CBC ####[facility] [place] [address] Dipstick and Microscopicon 0 12-20-2023 Bacteria,Urine None Seen Normal None Seen [facility] Comment on above: Order Comment: Name Collection Type:: Clean-Voided Midstream Performed By: #### B MP, CBC #### [address] Bilirubin,Urine Negative Normal Negative [facility] Comment on above: Order Comment: Name Collection Type:: Clean-Voided Midstream Performed By: #### B MP, CBC #### [address] Glucose Ql (U) Normal Normal Normal [facility] Comment on above: Order Comment: Name Collection Type:: Clean-Voided Midstream Performed By: #### B MP, CBC #### [address] Hyaline Casts,Urine None Normal 0-8 [facility] Comment on above: Order Comment: Name Collection Type:: Clean-Voided Midstream Result Comment: PERF ORMED BY: [place] [address] PATHOLOGIST SANITATION DIRECTOR TERI EDMOND M.D. Performed By: #### B MP, CBC #### [place] [address] [place] Nitrite,Urine Negative Normal Negative [facility] Comment on above: Order Comment: Name Collection Type:: Clean-Voided Midstream Performed By: #### B MP, CBC #### [place] [address] [place] Occult Blood,Urine Negative Normal Negative [facility] Comment on above: Order Comment: Name Collection Type:: Clean-Voided Midstream Result Comment: PERF ORMED BY: [place] [address] PATHOLOGIST SANITATION DIRECTOR TERI EDMOND M.D. Performed By: #### B MP, CBC #### [place] [address] [place] Protein,Urine Trace High Negative [facility] Comment on above: Order Comment: Name Collection Type:: Clean-Voided Midstream Performed By: #### B MP, CBC #### [address] RBC,Urine 1-2 Normal 0-4 [facility] Comment on above: Order Comment: Name Collection Type:: Clean-Voided Midstream Performed By: #### B MP, CBC #### [address] Specificy [place],Urine 1.019 Normal 1.001-1.03 0 [facility] Comment on above: Order Comment: Name Collection Type:: Clean-Voided Midstream Performed By: #### B MP, CBC #### [place] [address] [place] Urobilinogen,Urine Normal Normal Normal [facility] Comment on above: Order Comment: Name Collection Type:: Clean-Voided Midstream Performed By: #### B MP, CBC #### [place] [address] [place] WBC,Urine 1-2 Normal 0-4 [facility] Comment on above: Order Comment: Name Collection Type:: Clean-Voided Midstream Performed By: #### B MP, CBC #### [place] [address] [place] Eosinophils Auto (Bld) [#/Vo l]Ordered By: Rubio Crooks on 12-20-2023 Eosinophils (Bld) [#/Vol] N/A [facility] Eosinophils/100 WBC Auto (Bl d)Ordered By: Rubio Crooks on 12-20-2023 Eosinophils/100 WBC (Bld) N/A [facility] Eosinophils/100 leukocytes i n Blood by Manual countOrdered By: Rubio Crooks on 12-20-2023 Eosinophils/100 WBC (Bld) 1 % Normal 1-3 [facility] Comment on above: Performed By: #### P P, MG, CMP, DIFF CBC ####[facility] [id number] Epithelial cells.squamous [# /area] in Urine sediment by Automated countOrdered By: Rubio Crooks on 12-20-2023 Epithelial cells.squamous Auto (Urine sed) [#/Area] N/A [facility] Erythrocyte distribution wid th [Ratio] by Automated countOrdered By: Rubio Crooks on 12-20-2023 Erythrocyte distribution width (RBC) [Ratio] 15.6 % High 12.0-14.8 [facility] Comment on above: Performed By: #### P P, MG, CMP, DIFF CBC ####[place] [address] [address] Erythrocytes [#/area] in Uri ne sediment by Automated countOrdered By: Rubio Crooks on 12-20-2023 RBC Auto (Urine sed) [#/Area] 1-2 [HPF] 0-4 [facility] Erythrocytes [#/volume] in B lood by Automated countOrdered By: Rubio Crooks on 12-20-2023 RBC (Bld) [#/Vol] 4.29 10*6/uL Normal 3.90-5.60 [facility] Comment on above: Performed By: #### P P, MG, CMP, DIFF CBC ####[address] Glucose [Mass/volume] in Ser um or PlasmaOrdered By: Rubio Crooks on 12-20-2023 Glucose [Mass/Vol] 112 mg/dL High 70-100 [facility] Comment on above: ADA recommended refe rence rangeRandom Glucose Reference Range is dependent on time and content of last meal. Glucose of more than 200 mg/dL in a nonstressed, ambulatory subject supports the diagnosis of Diabetes Mellitus. Result Comment: [place] [facility] Glucose Reference Range is dependent on time and content of last meal. Glucose of more than 200 mg/dL in a nonstressed, ambulatory subject supports the diagnosis of Diabetes Mellitus. ADA recommended reference range Performed By: #### P P, MG, CMP, DIFF CBC #### [facility] [address] Glucose [Mass/volume] in Uri ne by Test stripOrdered By: Rubio Crooks on 12-20-2023 Glucose Test strip (U) [Mass/Vol] Normal mg/dL Normal [facility] Hematocrit [Volume Fraction] of Blood by Automated countOrdered By: Rubio Crooks on 12-20-2023 Hematocrit (Bld) [Volume fraction] 38.4 % Low 38.8-50.0 [facility] Comment on above: Performed By: #### P P, MG, CMP, DIFF CBC ####[facility] [id number] Hemoglobin Test strip Ql (U) Ordered By: Rubio Crooks on 12-20-2023 Hemoglobin Ql (U) Negative Negative [facility] Hemoglobin [Mass/volume] in BloodOrdered By: Rubio Crooks on 12-20-2023 Hemoglobin (Bld) [Mass/Vol] 12.8 g/dL Low 13.0-17.0 [facility] Comment on above: Performed By: #### P P, MG, CMP, DIFF CBC ####[facility] [id number] [address] Hyaline casts [#/area] in Ur ine sediment by Automated countOrdered By: Rubio Crooks on 12-20-2023 Hyaline casts Auto (Urine sed) [#/Area] None [LPF] 0-8 [facility] INR in Platelet poor plasma by Coagulation assayOrdered By: Rubio Crooks on 12-20-2023 INR Coag (PPP) [Relative time] 1.8 {INR} Normal [facility] Comment on above: INR Therapeutic Rang e [...] P P, MG, CMP, DIFF CBC #### [facility] [address] [place] [address] [place] Ketones [Presence] in Urine by Test stripOrdered By: Rubio Crooks on 12-20-2023 Ketones Ql (U) Negative Normal Negative [facility] Comment on above: Order Comment: Name Collection Type:: Clean-Voided Midstream Performed By: #### B MP, CBC #### [place] [address] [place] Leukocyte esterase [Presence ] in Urine by Test stripOrdered By: Rubio Crooks on 12-20-2023 Leukocyte esterase Test strip Ql (U) Negative Normal Negative [facility] Comment on above: Order Comment: Name Collection Type:: Clean-Voided Midstream Performed By: #### B MP, CBC #### [facility] [address] [place] [address] [place] Leukocytes [#/area] in Urine sediment by Automated countOrdered By: Rubio Crooks on 12-20-2023 WBC Auto (Urine sed) [#/Area] 1-2 [HPF] 0-4 [facility] Leukocytes [#/volume] correc amparo for nucleated erythrocytes in Blood by Automated counOrdered By: Rubio Crooks on 12-20-2023 WBC corrected for nucl RBC Auto (Bld) [#/Vol] 7.1 10*3/uL 4.1-10.5 [facility] Leukocytes [#/volume] in Blo od by Automated countOrdered By: Rubio Crooks on 12-20-2023 WBC (Bld) [#/Vol] 7.1 10*3/uL Normal 4.1-10.5 [facility] Comment on above: Performed By: #### P P, MG, CMP, DIFF CBC ####[place] [id number] [address] Lymphocytes Auto (Bld) [#/Vo l]Ordered By: Rubio Crooks on 12-20-2023 Lymphocytes (Bld) [#/Vol] N/A [facility] Lymphocytes/100 WBC Auto (Bl d)Ordered By: Rubio Crooks on 12-20-2023 Lymphocytes/100 WBC (Bld) N/A [facility] Lymphocytes/100 leukocytes i n Blood by Manual countOrdered By: Rubio Crooks on 12-20-2023 Lymphocytes/100 WBC (Bld) 8 % Low 18-42 [facility] Comment on above: Performed By: #### P P, MG, CMP, DIFF CBC ####[place] [id number] [address] MCH [Entitic mass] by Automa amparo countOrdered By: Rubio Crooks on 12-20-2023 MCH (RBC) [Entitic mass] 29.8 pg Normal 27.5-35.2 [facility] Comment on above: Performed By: #### P P, MG, CMP, DIFF CBC ####[address] MCHC Auto (RBC) [Mass/Vol]Or dered By: Rubio Crooks on 12-20-2023 MCHC (RBC) [Mass/Vol] 33.4 g/dL 32.5-35.6 [facility] MCV [Entitic volume] by Auto mated countOrdered By: Rubio Crooks on 12-20-2023 MCV (RBC) [Entitic vol] 89.3 fL Normal 83.5-101 [facility] Comment on above: Performed By: #### P P, MG, CMP, DIFF CBC ####[address] Magnesium [Mass/volume] in S aime or PlasmaOrdered By: Rubio Crooks on 12-20-2023 Magnesium [Mass/Vol] 1.7 mg/dL Low 1.9-2.7 [facility] Comment on above: Result Comment: PERF ORMED BY: [facility] [address] [id number] PATHOLOGIST SANITATION DIRECTOR TERI EDMOND M.D. Performed By: #### P P, MG, CMP, DIFF CBC ####[place] [id number] [address] Manual blood segmented neutr ophils/100 leukocytesOrdered By: Rubio Crooks on 12-20-2023 Segmented neutrophils/100 WBC (Bld) 84 % High 50-70 [facility] Comment on above: Performed By: #### P P, MG, CMP, DIFF CBC ####[address] Monocyte distribution width [Entitic volume] in Blood by AutomatedOrdered By: Rubio Crooks on 12-20-2023 Monocyte distribution width Auto (Bld) [Entitic vol] 17.52 % 0.00-20.00 [facility] Monocytes Auto (Bld) [#/Vol] Ordered By: Rubio Crooks on 12-20-2023 Monocytes (Bld) [#/Vol] N/A [facility] Monocytes/100 WBC Auto (Bld) Ordered By: Rubio Crooks on 12-20-2023 Monocytes/100 WBC (Bld) N/A [facility] Monocytes/100 leukocytes in Blood by Manual countOrdered By: Rubio Crooks on 12-20-2023 Monocytes/100 WBC (Bld) 7 % Normal 2-11 [facility] Comment on above: Performed By: #### P P, MG, CMP, DIFF CBC ####[address] Myelocytes/100 WBC Manual cn t (Bld)Ordered By: Rubio Crooks on 12-20-2023 Myelocytes/100 WBC (Bld) 1 % High 0-0 [facility] Neutrophils Auto (Bld) [#/Vo l]Ordered By: Rubio Crooks on 12-20-2023 Neutrophils (Bld) [#/Vol] N/A [facility] Neutrophils/100 WBC Auto (Bl d)Ordered By: Rubio Crooks on 12-20-2023 Neutrophils/100 WBC (Bld) N/A [facility] Nitrite Test strip Ql (U)Ord ered By: Rubio Crooks on 12-20-2023 Nitrite Ql (U) Negative Negative [facility] No Panel InformationOrdered By: Rubio Crooks on 12-20-2023 Estimated GFR (CKD-EPI) > 60.0 mL/Min [facility] Creatinine Clearance (Chem 51.02 [facility] > 60.0 mL/Min [facility] 51.02 [facility] Nucleated erythrocytes [Pres ence] in Blood by Automated countOrdered By: Rubio Crooks on 12-20-2023 Nucleated RBC Auto Ql (Bld) N/A [facility] Ovalocyte detectionOrdered B y: Rubio Crooks on 12-20-2023 Ovalocytes LM Ql (Bld) [facility] Platelet adequacy [Presence] in Blood by Light microscopyOrdered By: Rubio Crooks on 12-20-2023 Platelets LM Ql (Bld) Normal Normal [facility] Platelet mean volume [Entiti c volume] in Blood by Automated countOrdered By: Ruibo Crooks on 12-20-2023 Platelet mean volume (Bld) [Entitic vol] 8.1 fL Normal 6.6-10.1 [facility] Comment on above: Performed By: #### P P, MG, CMP, DIFF CBC ####[facility] [id number] Platelet morphology finding [Identifier] in BloodOrdered By: Rubio Crooks on 12-20-2023 Platelet morphology finding Nom (Bld) Normal Normal [facility] Platelets [#/volume] in Bloo d by Automated countOrdered By: Rubio Crooks on 12-20-2023 Platelets (Bld) [#/Vol] 156 10*3/uL Normal 150-450 [facility] Comment on above: Performed By: #### P P, MG, CMP, DIFF CBC ####[facility] [id number] Poikilocytosis [Presence] in Blood by Light microscopyOrdered By: Rubio Crooks on 12-20-2023 Poikilocytosis LM Ql (Bld) Slight [facility] Polychromasia [Presence] in Blood by Light microscopyOrdered By: Rubio Crooks on 12-20-2023 Polychromasia LM Ql (Bld) Slight [facility] Potassium [Moles/volume] in Serum or PlasmaOrdered By: Rubio Crooks on 12-20-2023 Potassium [Moles/Vol] 4.4 mmol/L Normal 3.5-5.1 [facility] Comment on above: Performed By: #### P P, MG, CMP, DIFF CBC #### [facility] [address] Protein Test strip (U) [Mass /Vol]Ordered By: Rubio Crooks on 12-20-2023 Protein (U) [Mass/Vol] Trace mg/dL High Negative [facility] Protein [Mass/volume] in Ser um or PlasmaOrdered By: Rubio Crooks on 12-20-2023 Protein [Mass/Vol] 7.3 g/dL Normal 6.4-8.9 [facility] Comment on above: Performed By: #### P P, MG, CMP, DIFF CBC #### [facility] [address] Prothrombin time (PT)Ordered By: Rubio Crooks on 12-20-2023 PT Coag (PPP) [Time] 20.7 s High 9.0-12.9 [facility] Comment on above: A hematocrit value g reater than 55% may lead to inaccurate results in coagulation testing. Patients having hematocrit values >55% require a special collection tube for coagulation studies. Please contact the laboratory at [phone] for redraw instructions. Result Comment: A he matocrit value greater than 55% may lead to inaccurate results in coagulation testing. Patients having hematocrit values >55% require a special collection tube for coagulation studies. Please contact the laboratory at [phone] for redraw instructions. Performed By: #### P P, MG, CMP, DIFF CBC #### [address] RBC morphologyOrdered By: Raquel Crooks on 12-20-2023 RBC morphology finding Nom (Bld) N/A [facility] Serum globulin measurement b y calculation (mass/volume)Ordered By: Rubio Crooks on 12-20-2023 Globulin (S) [Mass/Vol] 3.1 g/dL Normal [facility] Comment on above: Performed By: #### P P, MG, CMP, DIFF CBC #### [address] Serum or plasma albumin/glob ulin mass ratioOrdered By: Rubio Crooks on 12-20-2023 Albumin/Globulin [Mass ratio] 1.4 {ratio} Normal [facility] Comment on above: Performed By: #### P P, MG, CMP, DIFF CBC #### [address] Serum or plasma anion gap de terminationOrdered By: Rubio Crooks on 12-20-2023 Anion gap [Moles/Vol] 9.4 mmol/L Normal 6.0-15.0 [facility] Comment on above: Performed By: #### P P, MG, CMP, DIFF CBC #### [address] Sodium [Moles/volume] in Ser um or PlasmaOrdered By: Rubio Crooks on 12-20-2023 Sodium [Moles/Vol] 138 mmol/L Normal 136-145 [facility] Comment on above: Performed By: #### P P, MG, CMP, DIFF CBC #### [address] Specific gravity Test strip (U) [Rel density]Ordered By: Rubio Crooks on 12-20-2023 Specific gravity (U) [Rel density] 1.019 1.001-1.03 0 [facility] Urea nitrogen [Mass/volume] in Serum or PlasmaOrdered By: Rubio Crooks on 12-20-2023 Urea nitrogen [Mass/Vol] 31 mg/dL High 7-25 [facility] Comment on above: Performed By: #### P P, MG, CMP, DIFF CBC #### [address] Urine appearanceOrdered By: Rubio Crooks on 12-20-2023 Appearance (U) Clear Normal Clear [facility] Comment on above: Order Comment: Name Collection Type:: Clean-Voided Midstream Performed By: #### B MP, CBC #### [address] Urobilinogen Test strip (U) [Mass/Vol]Ordered By: Rubio Crooks on 12-20-2023 Urobilinogen (U) [Mass/Vol] Normal mg/dL Normal [facility] XR femur RT 2V*on 12-20-2023 XR femur RT 2V* [facility] [place] [address] [place] [address] XRay Report Signed Patient: Fani Chua MR#: [id number] : 1935 Acct:[id number] Age/Sex: 88 / M ADM Date: 12/20/23 Loc: Room: [address] [place] [address] Type: ADM INOo Attending Dr: Betty Buchanan MD Copies to: MD Rubio Owen Jr, MD Ordering Provider: Rubio Crooks Jr, MD Date of Service: 12/20/23 XR/XR knee RT 4V*: Fall ([id number]) XR/XR femur RT 2V*: Fall ([id number]) XR/XR shoulder LT min 2V*: Fall CLINICAL [...] Cyn Llamas M.D.12/20/2023 10:33 AM Dictation Location: [place] [address] Transcribed By: [facility] 12/20/23 1033 Dictated By: Cyn Llamas MD 12/20/23 1028 Signed By: 12/20/23 1033 Normal [facility] pH of Urine by Test stripOrd ered By: Rubio Crooks on 12-20-2023 pH (U) 5.0 [pH] Normal 5.0-9.0 [facility] Comment on above: Order Comment: Name Collection Type:: Clean-Voided Midstream Performed By: #### B MP, CBC #### [address] INR in Platelet poor plasma by Coagulation assayOrdered By: Isai May on 06-06-2023 INR Coag (PPP) [Relative time] 2.2 {INR} [facility] Comment on above: INR Therapeutic Rang e [...] on 06-06-2023 Magnesium [Mass/Vol] 1.6 mg/dL 1.9-2.7 [facility] Prothrombin time (PT)Ordered By: Isai May on 06-06-2023 PT Coag (PPP) [Time] 25.0 s 9.0-12.9 [facility] Comment on above: A hematocrit value g reater than 55% may lead to inaccurate results in coagulation testing. Patients having hematocrit values >55% require a special collection tube for coagulation studies. Please contact the laboratory at [phone] for redraw instructions. Basophils Auto (Bld) [#/Vol] Ordered By: Isai May on 06-05-2023 Basophils (Bld) [#/Vol] 0.0 10*3/uL 0.0-0.2 [facility] Basophils/100 WBC Auto (Bld) Ordered By: Isai May on 06-05-2023 Basophils/100 WBC (Bld) 0.6 % . [facility] Calcium [Mass/volume] in Ser um or PlasmaOrdered By: Isai May on 06-05-2023 Calcium [Mass/Vol] 9.2 mg/dL 8.6-10.3 [facility] Carbon dioxide, total [Moles /volume] in Serum or PlasmaOrdered By: Isai May on 06-05-2023 CO2 [Moles/Vol] 25.2 mmol/L 21.0-31.0 [facility] Chloride [Moles/volume] in S aime or PlasmaOrdered By: Isai May on 06-05-2023 Chloride [Moles/Vol] 106 mmol/L 98-107 [facility] Cholesterol [Mass/volume] in Serum or PlasmaOrdered By: Isai May on 06-05-2023 Cholesterol [Mass/Vol] 148 mg/dL 140-200 [facility] Comment on above: Chol less than 200 m g/dl low riskChol 201-239 mg/dl borderline riskChol 240 mg/dl and greater high risk Cholesterol in LDL Calc [Mas s/Vol]Ordered By: Isai May on 06-05-2023 Cholesterol in LDL [Mass/Vol] 79 mg/dL 0-100 [facility] Comment on above: LDL ATP III CLASSIFI CATIONLDL less than 100 mg/dL OptimalLDL 100-129 mg/dL Near or above optimalLDL 130-159 mg/dL Borderline highLDL 160-189 mg/dL HighLDL greater than 189 mg/dL Very high Cholesterol in VLDL Calc [Ma ss/Vol]Ordered By: Isai May on 06-05-2023 Cholesterol in VLDL [Mass/Vol] 17 mg/dL [facility] Creatine kinase [Enzymatic a ctivity/volume] in Serum or PlasmaOrdered By: Isai May on 12-22-2023 CK [Catalytic activity/Vol] 56 U/L 30-223 [facility] Creatinine [Mass/volume] in Serum or PlasmaOrdered By: Isai May on 06-05-2023 Creatinine [Mass/Vol] 0.86 mg/dL 0.70-1.30 [facility] Eosinophils Auto (Bld) [#/Vo l]Ordered By: Isai May on 06-05-2023 Eosinophils (Bld) [#/Vol] 0.1 10*3/uL 0.0-0.45 [facility] Eosinophils/100 WBC Auto (Bl d)Ordered By: Isai May on 06-05-2023 Eosinophils/100 WBC (Bld) 2.3 % . [facility] Erythrocyte distribution wid th Auto (RBC) [Ratio]Ordered By: Isai May on 06-05-2023 Erythrocyte distribution width (RBC) [Ratio] 14.6 % 12.0-14.8 [facility] Glucose [Mass/volume] in Ser um or PlasmaOrdered By: Isai May on 06-05-2023 Glucose [Mass/Vol] 96 mg/dL 70-100 [facility] Comment on above: ADA recommended refe rence rangeRandom Glucose Reference Range is dependent on time and content of last meal. Glucose of more than 200 mg/dL in a nonstressed, ambulatory subject supports the diagnosis of Diabetes Mellitus. Glucose mean value [Mass/vol ume] in Blood Estimated from glycated hemoglobinOrdered By: Isai May on 06-05-2023 Average glucose Estimated from glycated hemoglobin (Bld) [Mass/Vol] 114 mg/dL [facility] Hematocrit Auto (Bld) [Volum e fraction]Ordered By: Isai May on 06-05-2023 Hematocrit (Bld) [Volume fraction] 35.9 % 38.8-50.0 [facility] Hemoglobin A1c percentageOrd ered By: Isai May on 06-05-2023 HbA1c (Bld) [Mass fraction] 5.6 % 4.3-5.6 [facility] Comment on above: Increased risk for d iabetes: 5.7 - 6.4diabetes: >6.4glycemic control for adults with diabetes: <7.0 Hemoglobin [Mass/volume] in BloodOrdered By: Isai May on 06-05-2023 Hemoglobin (Bld) [Mass/Vol] 12.0 g/dL 13.0-17.0 [facility] Leukocytes [#/volume] correc amparo for nucleated erythrocytes in Blood by Automated counOrdered By: Isai May on 06-05-2023 WBC corrected for nucl RBC Auto (Bld) [#/Vol] 4.8 10*3/uL 4.1-10.5 [facility] Lymphocytes Auto (Bld) [#/Vo l]Ordered By: Isai May on 06-05-2023 Lymphocytes (Bld) [#/Vol] 1.2 10*3/uL 1.00-4.8 [facility] Lymphocytes/100 WBC Auto (Bl d)Ordered By: Isai May on 06-05-2023 Lymphocytes/100 WBC (Bld) 24.7 % . [facility] MCH Auto (RBC) [Entitic mass ]Ordered By: Isai May on 06-05-2023 MCH (RBC) [Entitic mass] 29.3 pg 27.5-35.2 [facility] MCHC Auto (RBC) [Mass/Vol]Or dered By: Isai May on 06-05-2023 MCHC (RBC) [Mass/Vol] 33.6 g/dL 32.5-35.6 [facility] MCV Auto (RBC) [Entitic vol] Ordered By: Isai May on 06-05-2023 MCV (RBC) [Entitic vol] 87.4 fL 83.5-101 [facility] Monocytes Auto (Bld) [#/Vol] Ordered By: Isai May on 06-05-2023 Monocytes (Bld) [#/Vol] 0.7 10*3/uL 0.0-0.8 [facility] Monocytes/100 WBC Auto (Bld) Ordered By: Isai May on 06-05-2023 Monocytes/100 WBC (Bld) 13.7 % . [facility] Neutrophils Auto (Bld) [#/Vo l]Ordered By: Isai May on 06-05-2023 Neutrophils (Bld) [#/Vol] 2.8 10*3/uL 1.8-7.7 [facility] Neutrophils/100 WBC Auto (Bl d)Ordered By: Isai May on 06-05-2023 Neutrophils/100 WBC (Bld) 58.7 % . [facility] No Panel InformationOrdered By: Isai May on 06-05-2023 Estimated GFR (CKD-EPI) > 60.0 mL/Min [facility] Creatinine Clearance (Chem 60.52 [facility] Nucleated erythrocytes [Pres ence] in Blood by Automated countOrdered By: Isai May on 06-05-2023 Nucleated RBC Auto Ql (Bld) 0.0 /100{WBC} 0-0.5 [facility] Platelet mean volume Auto (B ld) [Entitic vol]Ordered By: Isai May on 06-05-2023 Platelet mean volume (Bld) [Entitic vol] 8.4 fL 6.6-10.1 [facility] Platelets Auto (Bld) [#/Vol] Ordered By: Isai May on 06-05-2023 Platelets (Bld) [#/Vol] 158 10*3/uL 150-450 [facility] Potassium [Moles/volume] in Serum or PlasmaOrdered By: Isai May on 06-05-2023 Potassium [Moles/Vol] 3.7 mmol/L 3.5-5.1 [facility] RBC Auto (Bld) [#/Vol]Ordere d By: Isai May on 06-05-2023 RBC (Bld) [#/Vol] 4.11 10*6/uL 3.90-5.60 [facility] Serum or plasma anion gap de terminationOrdered By: Isai May on 06-05-2023 Anion gap [Moles/Vol] 11.5 mmol/L 6.0-15.0 [facility] Serum or plasma high density lipoprotein (HDL) cholesterol measurementOrdered By: Isai May on 06-05-2023 Cholesterol in HDL [Mass/Vol] 52 mg/dL 23- [facility] Comment on above: HDL CHOL ATP-III CLA SSIFICATION Cardiovascular RiskHDL > or equal to 60 mg/dL LOWHDL < 40 mg/dL HIGH Serum or plasma total choles terol/high density lipoprotein (HDL) cholesterol mass ratOrdered By: Isai May on 06-05-2023 Cholesterol.total/Chol esterol in HDL [Mass ratio] 2.8 {ratio} <5.0 [facility] Sodium [Moles/volume] in Ser um or PlasmaOrdered By: Isai May on 06-05-2023 Sodium [Moles/Vol] 139 mmol/L 136-145 [facility] Triglyceride [Mass/volume] i n Serum or PlasmaOrdered By: Isai May on 06-05-2023 Triglyceride [Mass/Vol] 87 mg/dL 0-149 [facility] Comment on above: TRIG ATP III CLASSIF [...] <= 0.01 ng/mL [Mass/Vol] 55.4 pg/mL 0.0-20.0 [facility] Comment on above: Critical Result : Ca lled to and read back by: DELILAH PINON at: 06/05/2023 20:01:35 by:[id number] Urea nitrogen [Mass/volume] in Serum or PlasmaOrdered By: Isai May on 06-05-2023 Urea nitrogen [Mass/Vol] 20 mg/dL 7-25 [facility] WBC Auto (Bld) [#/Vol]Ordere d By: Isai May on 06-05-2023 WBC (Bld) [#/Vol] 4.8 10*3/uL 4.1-10.5 [facility] Activated partial thrombopla stin time (aPTT) in platelet poor plasma by coagulation aOrdered By: Tay Wood on 06-04-2023 aPTT Coag (PPP) [Time] 48.5 s 25.1-36.5 [facility] Comment on above: A hematocrit value g reater than 55% may lead to inaccurate results in coagulation testing. Patients having hematocrit values >55% require a special collection tube for coagulation studies. Please contact the laboratory at [phone] for redraw instructions. Alanine aminotransferase [En zymatic activity/volume] in Serum or PlasmaOrdered By: Tay Wood on 06-04-2023 ALT [Catalytic activity/Vol] 19 U/L 7-52 [facility] Albumin [Mass/volume] in Ser um or Plasma by Bromocresol green (BCG) dye binding methoOrdered By: Tay Wood on 06-04-2023 Albumin BCG dye [Mass/Vol] 4.2 g/dL 3.5-5.7 [facility] Alkaline phosphatase [Enzyma tic activity/volume] in Serum or PlasmaOrdered By: Tay Wood on 06-04-2023 ALP [Catalytic activity/Vol] 97 U/L 34-104 [facility] Aspartate aminotransferase [ Enzymatic activity/volume] in Serum or PlasmaOrdered By: Tay Wood on 06-04-2023 AST [Catalytic activity/Vol] 30 U/L 13-39 [facility] Bilirubin Test strip Ql (U)O rdered By: Tay Wood on 06-04-2023 Bilirubin Ql (U) Negative Negative [facility] Bilirubin.direct [Mass/volum e] in Serum or PlasmaOrdered By: Tay Wood on 06-04-2023 Bilirubin.direct [Mass/Vol] 0.10 mg/dL 0.03-0.18 [facility] Bilirubin.total [Mass/volume ] in Serum or PlasmaOrdered By: Tay Wood on 06-04-2023 Bilirubin [Mass/Vol] 0.5 mg/dL 0.3-1.0 [facility] Color Auto (U)Ordered By: Tomas Wood on 06-04-2023 Color (U) Yellow Yellow [facility] Creatinine (Bld) [Mass/Vol]O rdered By: Isai May on 06-04-2023 Creatinine [Mass/Vol] 1.0 mg/dL 0.6-1.3 [facility] Comment on above: ER/ESD physician is notified/shown all ISTAT results.Critical values may be confirmed by laboratory testing ifdeemed necessary by ER attending doctor. Globulin Calc (S) [Mass/Vol] Ordered By: Tay Wood on 06-04-2023 Globulin (S) [Mass/Vol] 3.1 g/dL [facility] Glucose Glucometer (BldC) [M ass/Vol]Ordered By: Tay Wood on 06-04-2023 Glucose [Mass/Vol] 92 mg/dL [facility] Comment on above: Random Glucose Refer ence Range is dependent on time and content of last meal. Glucose of more than 200 mg/dL in a nonstressed, ambulatory subject supports the diagnosis of Diabetes Mellitus. Ketones Auto test strip (U) [Mass/Vol]Ordered By: Tay Wood on 06-04-2023 Ketones (U) [Mass/Vol] Negative Negative [facility] Monocyte distribution width [Entitic volume] in Blood by AutomatedOrdered By: Tay Wood on 06-04-2023 Monocyte distribution width Auto (Bld) [Entitic vol] 17.82 % 0.00-20.00 [facility] Natriuretic peptide B [Mass/ Vol]Ordered By: Tay Wood on 06-04-2023 Natriuretic peptide B (Bld) [Mass/Vol] 404.0 pg/mL 5-100 [facility] Nitrite Test strip Ql (U)Ord ered By: Tay Wood on 06-04-2023 Nitrite Ql (U) Negative Negative [facility] No Panel InformationOrdered By: Isai May on 06-04-2023 Bedside Estimated GFR (eGFR) > 60.0 [facility] Protein Auto test strip (U) [Mass/Vol]Ordered By: Tay Wood on 06-04-2023 Protein (U) [Mass/Vol] Negative Negative [facility] Protein [Mass/volume] in Ser um or PlasmaOrdered By: Tay Wood on 06-04-2023 Protein [Mass/Vol] 7.3 g/dL 6.4-8.9 [facility] Serum or plasma albumin/glob ulin mass ratioOrdered By: Tay Wood on 06-04-2023 Albumin/Globulin [Mass ratio] 1.4 {ratio} [facility] Serum or plasma non-glucuron idated bilirubin measurement (mass/volume)Ordered By: Tay Wood on 06-04-2023 Bilirubin.indirect [Mass/Vol] 0.4 mg/dL [facility] Specific gravity Auto test s trip (U) [Rel density]Ordered By: Tay Wood on 06-04-2023 Specific gravity (U) [Rel density] 1.038 1.001-1.03 0 [facility] Urine clarity by refractomet ry automatedOrdered By: Tay Wood on 06-04-2023 Clarity Refractometry automated (U) Clear Clear [facility] Urine glucose measurement by automated test strip (mass/volume)Ordered By: Tay Wood on 06-04-2023 Glucose Auto test strip (U) [Mass/Vol] Normal mg/dL Normal [facility] Urine hemoglobin detection b y automated test stripOrdered By: Tay Wood on 06-04-2023 Hemoglobin Auto test strip Ql (U) Negative Negative [facility] Urine leukocyte esterase det ection by automated test stripOrdered By: Tay Wood on 06-04-2023 Leukocyte esterase Auto test strip Ql (U) Negative Negative [facility] Urobilinogen Auto test strip (U) [Mass/Vol]Ordered By: Tay Wood on 06-04-2023 Urobilinogen (U) [Mass/Vol] Normal mg/dL Normal [facility] pH Auto test strip (U)Ordere d By: Tay Wood on 06-04-2023 pH (U) 5.0 [pH] 5.0-9.0 [facility] Ammonium urate crystals dete ction in stone by infrared spectroscopyOrdered By: Julio C Ramirez on 05-05-2023 Ammonium urate crystals Infrared spectroscopy Ql (Stone) N/A [facility] Calcium bilirubinate measure mentOrdered By: Julio C Ramirez on 05-05-2023 Calcium bilirubinate (Stone) [Mass fraction] N/A [facility] Calcium carbonate measuremen tOrdered By: Julio C Ramirez on 05-05-2023 Calcium carbonate (Stone) [Mass fraction] N/A [facility] Calcium hydrogen phosphate d ihydrate/Total in StoneOrdered By: Julio C Ramirez on 05-05-2023 Calcium hydrogen phosphate dihydrate (Stone) [Mass fraction] N/A [facility] Calcium oxalate dihydrate cr ystals detection in stone by infrared spectroscopyOrdered By: Julio C Ramirez on 05-05-2023 Calcium oxalate dihydrate crystals Infrared spectroscopy Ql (Stone) N/A [facility] Calcium oxalate monohydrate/ Total in StoneOrdered By: Julio C Ramirez on 05-05-2023 Calcium oxalate monohydrate (Stone) [Mass fraction] 10 % . [facility] Calcium phosphate measuremen tOrdered By: Julio C Ramirez on 05-05-2023 Calcium phosphate (Stone) [Mass fraction] N/A [facility] Calculus analysis interpreta tion in stoneOrdered By: Julio C Ramirez on 05-05-2023 Calculus analysis [Interp] N/A [facility] Calculus analysis [Interp] See comment . [facility] Comment on above: Calculus received we t. Wet calculi must be dried beforeanalysis, which delays reporting of results. Leaving calculiwet (such as water, saline, blood, urine) may lead tochanges in composition. Physician questions regarding Calculi Analysis contactSatanta District HospitalCorp at: [phone]. Calculi report will follow via computer, mail or courierdelivery. Calculus analysis with calcu ewa photography interpretation in stoneOrdered By: Julio C Ramirez on 05-05-2023 Calculus analysis with calculus photography [Interp] See comment . [facility] Comment on above: Photograph will foll ow under a separate cover Cellular material measuremen t in stone by estimated (mass/mass)Ordered By: Julio C Ramirez on 05-05-2023 Cellular material Est (Stone) [Mass/Mass] N/A [facility] Cholesterol/Total in StoneOr dered By: Julio C Ramirez on 05-05-2023 Cholesterol (Stone) [Mass fraction] N/A [facility] Composition of stoneOrdered By: Julio C Ramirez on 05-05-2023 Composition Nom (Stone) See comment . [facility] Comment on above: Percentage (Represen ts the % composition) Cystine measurementOrdered B y: Julio C Ramirez on 05-05-2023 Cystine (Unsp spec) [Moles/Vol] N/A [facility] Determination of color of ca lculusOrdered By: Julio C Ramirez on 05-05-2023 Color (Stone) Brown . [facility] Hydroxyapatite [Energy Diffe rence] in 24 hour UrineOrdered By: Julio C Ramirez on 05-05-2023 Hydroxyapatite (24H U) [Energy diff] N/A [facility] Measurement of proportion of calculus composed of dried blood (mass/mass)Ordered By: Julio C Ramirez on 05-05-2023 Blood.dried (Stone) [Mass fraction] N/A [facility] Newberyite/Total in StoneOrd ered By: Julio C Ramirez on 05-05-2023 Newberyite (Stone) [Mass fraction] N/A [facility] No Panel InformationOrdered By: Julio C Ramirez on 05-05-2023 Stone 2,8 Dihydroxyadenine N/A [facility] Stone Analysis Disclaimer See comment . [facility] Comment on above: This test was develo ped and its performance characteristicsdetermined by [employer]. It has not been cleared or approvedby the Food and Drug Administration.Performed at: [facility] [id number] [id number] Director: Tone Kelly PhD, Phone: [phone] Stone Bilirubinate N/A [facility] Stone Calcium Palmitate N/A [facility] Stone Calcium Stearate N/A [facility] Stone Carbonate Apatite N/A [facility] Stone Drug or Metabolite N/A [facility] Stone Other Constituent N/A [facility] Stone Xanthine N/A [facility] Size [Entitic volume] of Sto neOrdered By: Julio C Ramirez on 05-05-2023 Size (Stone) [Entitic vol] 5x3 mm . [facility] Comment on above: Multiple pieces rece ived. Dimensions of the largest piecereported. Sodium urate crystals detect ion in stone by infrared spectroscopyOrdered By: Julio C Ramirez on 05-05-2023 Sodium urate crystals Infrared spectroscopy Ql (Stone) N/A [facility] Specimen source subject [Typ e]Ordered By: Julio C Ramirez on 05-05-2023 Specimen source subject Nom See comment . [facility] Comment on above: Right Ureter Triamterene measurement in c alculusOrdered By: Julio C Ramirez on 05-05-2023 Triamterene (Stone) [Mass fraction] N/A [facility] Triple phosphate/Total in St oneOrdered By: Julio C Ramirez on 05-05-2023 Triple phosphate (Stone) [Mass fraction] N/A [facility] Uric acid dihydrate crystals detection in stone by infrared spectroscopyOrdered By: Julio C Ramirez on 05-05-2023 Urate dihydrate crystals Infrared spectroscopy Ql (Stone) 90 % . [facility] Urate dihydrate crystals Infrared spectroscopy Ql (Stone) N/A [facility] US Heart TransthoracicOrdere d By: Bonita Kingsley on 04-03-2023 LV A4C EF 32.8 [facility] Work Phone: [facility] Work Phone: Heart Transthoracicon [address], [address] [place] [address] TRANSTHORACIC ECHOCARDIOGRAM REPORT Patient Name: FANI Caldwell Physician: [id number] Bonita Kingsley MD, [facility] Study Date: 04/03/2023 Ordering Provider: [id number] BONITA KINGSLEY MRN/PID: [id number] Fellow: Nurse: Date of /Age: 12 1935 / 87 years Belt Weaver: Karly Lin RD, T Gender: M Additional Staff: Height: 175.26 cm Admit Date: Weight: 75.75 kg Admission Status: BSA: 1.91 m2 Department Location: [facility] Blood Pressure: 130 /74 mmHg Study Type: TRANSTHORACIC ECHO (TTE) COMPLETE Diagnosis/ICD: 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 Ramirez 04/10/2023 CPT Codes: Echo Complete w Full Doppler-[id number] Study Detail: The following Echo studies were [...] Normal Ranges: M (more content not included)... STACYO Bonita Kingsley M D - 04/03/[address], [address] [place] [address] TRANSTHORACIC ECHOCARDIOGRAM REPORT Patient Name: FANI Caldwell Physician: [id number] Bonita Kingsley MD, [facility] Study Date: 04/03/2023 Ordering Provider: [id number] BONITA KINGSLEY MRN/PID: [id number] Fellow: Nurse: Date of /Age: 12 1935 / 87 years Belt Weaver: Karly Lin RDCS, RVT Gender: M Additional Staff: Height: 175.26 cm Admit Date: Weight: 75.75 kg Admission Status: BSA: 1.91 m2 Department Location: [facility] Blood Pressure: 130 /74 mmHg Study Type: TRANSTHORACIC ECHO (TTE) COMPLETE Diagnosis/ICD: 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 Ramirez 04/10/2023 CPT Codes: Echo Complete w Full Doppler-[id number] Study Detail: The following Echo studies were [...] AORTIC INSUFFICIENCY: A (more content not included)... [facility] Work Phone: Activated partial thrombopla stin time (aPTT) in platelet poor plasma by coagulation aOrdered By: Julio C Ramirez on 04-02-2023 aPTT Coag (PPP) [Time] 37.0 s 25.1-36.5 [facility] Comment on above: A hematocrit value g reater than 55% may lead to inaccurate results in coagulation testing. Patients having hematocrit values >55% require a special collection tube for coagulation studies. Please contact the laboratory at [phone] for redraw instructions. Basophils Auto (Bld) [#/Vol] Ordered By: Julio C Ramirze on 04-02-2023 Basophils (Bld) [#/Vol] 0.0 10*3/uL 0.0-0.2 [facility] Basophils/100 WBC Auto (Bld) Ordered By: Julio C Ramirez on 04-02-2023 Basophils/100 WBC (Bld) 0.8 % . [facility] Calcium [Mass/volume] in Ser um or PlasmaOrdered By: Julio C Ramirez on 04-02-2023 Calcium [Mass/Vol] 9.6 mg/dL 8.6-10.3 [facility] Carbon dioxide, total [Moles /volume] in Serum or PlasmaOrdered By: Julio C Ramirez on 04-02-2023 CO2 [Moles/Vol] 26.1 mmol/L 21.0-31.0 [facility] Chloride [Moles/volume] in S aime or PlasmaOrdered By: Julio C Ramirez on 04-02-2023 Chloride [Moles/Vol] 106 mmol/L 98-107 [facility] Creatinine [Mass/volume] in Serum or PlasmaOrdered By: Julio C Ramirez on 04-02-2023 Creatinine [Mass/Vol] 1.12 mg/dL 0.70-1.30 [facility] Eosinophils Auto (Bld) [#/Vo l]Ordered By: Julio C Ramirez on 04-02-2023 Eosinophils (Bld) [#/Vol] 0.1 10*3/uL 0.0-0.45 [facility] Eosinophils/100 WBC Auto (Bl d)Ordered By: Julio C Ramirez on 04-02-2023 Eosinophils/100 WBC (Bld) 1.9 % . [facility] Erythrocyte distribution wid th Auto (RBC) [Ratio]Ordered By: Julio C Ramirez on 04-02-2023 Erythrocyte distribution width (RBC) [Ratio] 15.9 % 12.0-14.8 [facility] Glucose [Mass/volume] in Ser um or PlasmaOrdered By: Julio C Ramirez on 04-02-2023 Glucose [Mass/Vol] 103 mg/dL 70-100 [facility] Comment on above: ADA recommended refe rence rangeRandom Glucose Reference Range is dependent on time and content of last meal. Glucose of more than 200 mg/dL in a nonstressed, ambulatory subject supports the diagnosis of Diabetes Mellitus. Hematocrit Auto (Bld) [Volum e fraction]Ordered By: Julio C Ramirez on 04-02-2023 Hematocrit (Bld) [Volume fraction] 39.9 % 38.8-50.0 [facility] Hemoglobin [Mass/volume] in BloodOrdered By: Julio C Ramirez on 04-02-2023 Hemoglobin (Bld) [Mass/Vol] 13.4 g/dL 13.0-17.0 [facility] INR in Platelet poor plasma by Coagulation assayOrdered By: Julio C Ramirez on 04-02-2023 INR Coag (PPP) [Relative time] 1.9 {INR} [facility] Comment on above: INR Therapeutic Rang e [...] RBC Auto (Bld) [#/Vol] 5.7 10*3/uL 4.1-10.5 [facility] Lymphocytes Auto (Bld) [#/Vo l]Ordered By: Julio C Ramirez on 04-02-2023 Lymphocytes (Bld) [#/Vol] 1.5 10*3/uL 1.00-4.8 [facility] Lymphocytes/100 WBC Auto (Bl d)Ordered By: Julio C Ramirez on 04-02-2023 Lymphocytes/100 WBC (Bld) 25.5 % . [facility] MCH Auto (RBC) [Entitic mass ]Ordered By: Julio C Ramirez on 04-02-2023 MCH (RBC) [Entitic mass] 29.6 pg 27.5-35.2 [facility] MCHC Auto (RBC) [Mass/Vol]Or dered By: Julio C Ramirez on 04-02-2023 MCHC (RBC) [Mass/Vol] 33.6 g/dL 32.5-35.6 [facility] MCV Auto (RBC) [Entitic vol] Ordered By: Julio C Ramirez on 04-02-2023 MCV (RBC) [Entitic vol] 88.1 fL 83.5-101 [facility] Monocytes Auto (Bld) [#/Vol] Ordered By: Julio C Ramirez on 04-02-2023 Monocytes (Bld) [#/Vol] 0.6 10*3/uL 0.0-0.8 [facility] Monocytes/100 WBC Auto (Bld) Ordered By: Julio C Ramirez on 04-02-2023 Monocytes/100 WBC (Bld) 10.9 % . [facility] Neutrophils Auto (Bld) [#/Vo l]Ordered By: Julio C Ramirez on 04-02-2023 Neutrophils (Bld) [#/Vol] 3.5 10*3/uL 1.8-7.7 [facility] Neutrophils/100 WBC Auto (Bl d)Ordered By: Julio C Ramirez on 04-02-2023 Neutrophils/100 WBC (Bld) 60.9 % . [facility] No Panel InformationOrdered By: Julio C Ramirez on 04-02-2023 Estimated GFR (CKD-EPI) > 60.0 mL/Min [facility] Creatinine Clearance (Chem N/A [facility] Nucleated erythrocytes [Pres ence] in Blood by Automated countOrdered By: Julio C Ramirez on 04-02-2023 Nucleated RBC Auto Ql (Bld) 0.1 /100{WBC} 0-0.5 [facility] Platelet mean volume Auto (B ld) [Entitic vol]Ordered By: Julio C Ramirez on 04-02-2023 Platelet mean volume (Bld) [Entitic vol] 8.3 fL 6.6-10.1 [facility] Platelets Auto (Bld) [#/Vol] Ordered By: Julio C Ramirez on 04-02-2023 Platelets (Bld) [#/Vol] 175 10*3/uL 150-450 [facility] Potassium [Moles/volume] in Serum or PlasmaOrdered By: Julio C Ramirez on 04-02-2023 Potassium [Moles/Vol] 4.4 mmol/L 3.5-5.1 [facility] Prothrombin time (PT)Ordered By: Julio C Ramirez on 04-02-2023 PT Coag (PPP) [Time] 22.4 s 9.0-12.9 [facility] Comment on above: A hematocrit value g reater than 55% may lead to inaccurate results in coagulation testing. Patients having hematocrit values >55% require a special collection tube for coagulation studies. Please contact the laboratory at [phone] for redraw instructions. RBC Auto (Bld) [#/Vol]Ordere d By: Julio C Ramirez on 04-02-2023 RBC (Bld) [#/Vol] 4.53 10*6/uL 3.90-5.60 [facility] Serum or plasma anion gap de terminationOrdered By: Julio C Ramirez on 04-02-2023 Anion gap [Moles/Vol] 12.3 mmol/L 6.0-15.0 [facility] Sodium [Moles/volume] in Ser um or PlasmaOrdered By: Julio C Ramirez on 04-02-2023 Sodium [Moles/Vol] 140 mmol/L 136-145 [facility] Urea nitrogen [Mass/volume] in Serum or PlasmaOrdered By: Julio C Ramirez on 04-02-2023 Urea nitrogen [Mass/Vol] 27 mg/dL 7-25 [facility] WBC Auto (Bld) [#/Vol]Ordere d By: Julio C Ramirez on 10-19-2023 WBC (Bld) [#/Vol] 5.7 10*3/uL 4.1-10.5 [facility] Office Visit (Cardiology)on 02-24-2023 Follow-up visit Diagnoses/Problems [...] Echocardiogram; Status:Hold For - Scheduling,Retrospective Authorization; Requested for:[id number]; SocHx: Former smoker Tobacco Use Screening; Status:Complete; Done: [id number] Patient Instructions Please bring all medicines, vitamins, and herbal supplements with you when you come to the office. Prescriptions will not be filled unless you are compliant with your follow up appointments or have a follow up appointment scheduled as per instruction of your physician. Refills should be requested at the time of your visit. Echo Same meds Retrieve CT from [facility] Follow up in 1 year. Chief Complaint [...] aortic stenosis status post TAVR 2019 at [facility]. Follow-up echocardiogram is scheduled. Currently asymptomatic from [...] ONE TABLET BY MOUTH DAILY DIRECTED PER [facility] Patient did not bring medication [...] Screening.on 023 Adult depression screening assessment No [facility] [employer] [facility] [address] DO Work Phone: Fall risk assessment a) No falls within the last year [facility] [address] DO Work Phone: Tobacco use status [facility] b) No [facility] [address] DO Work Phone: Activated partial thrombopla stin time (aPTT) in platelet poor plasma by coagulation aOrdered By: Gely Lin on 01-19-2023 aPTT Coag (PPP) [Time] 32.8 s 25.1-36.5 [facility] Bacterial blood cultureOrder ed By: Gely Lin on 01-19-2023 Bacteria identified Cx Nom (Bld) NO GROWTH 5 DAYS [facility] Basophils Auto (Bld) [#/Vol] Ordered By: Gely Lin on 01-19-2023 Basophils (Bld) [#/Vol] 0.0 10*3/uL 0.0-0.2 [facility] Basophils/100 WBC Auto (Bld) Ordered By: Gely Lin on 01-19-2023 Basophils/100 WBC (Bld) 0.4 % . [facility] Calcium [Mass/volume] in Ser um or PlasmaOrdered By: Gely Lin on 01-19-2023 Calcium [Mass/Vol] 9.0 mg/dL 8.6-10.3 [facility] Carbon dioxide, total [Moles /volume] in Serum or PlasmaOrdered By: Gely Lin on 01-19-2023 CO2 [Moles/Vol] 26.5 mmol/L 21.0-31.0 [facility] Chloride [Moles/volume] in S aime or PlasmaOrdered By: Gely Lin on 01-19-2023 Chloride [Moles/Vol] 100 mmol/L 98-107 [facility] Creatinine [Mass/volume] in Serum or PlasmaOrdered By: Gely Lin on 01-19-2023 Creatinine [Mass/Vol] 1.09 mg/dL 0.70-1.30 [facility] Eosinophils Auto (Bld) [#/Vo l]Ordered By: Gely Lin on 01-19-2023 Eosinophils (Bld) [#/Vol] 0.2 10*3/uL 0.0-0.45 [facility] Eosinophils/100 WBC Auto (Bl d)Ordered By: Gely Lin on 01-19-2023 Eosinophils/100 WBC (Bld) 2.7 % . [facility] Erythrocyte distribution wid th Auto (RBC) [Ratio]Ordered By: Gely Lin on 01-19-2023 Erythrocyte distribution width (RBC) [Ratio] 14.9 % 12.0-14.8 [facility] Glucose [Mass/volume] in Ser um or PlasmaOrdered By: Gely Lin on 01-19-2023 Glucose [Mass/Vol] 103 mg/dL 70-100 [facility] Comment on above: ADA recommended refe rence rangeRandom Glucose Reference Range is dependent on time and content of last meal. Glucose of more than 200 mg/dL in a nonstressed, ambulatory subject supports the diagnosis of Diabetes Mellitus. Hematocrit Auto (Bld) [Volum e fraction]Ordered By: Gely Lin on 01-19-2023 Hematocrit (Bld) [Volume fraction] 37.8 % 38.8-50.0 [facility] Hemoglobin [Mass/volume] in BloodOrdered By: Gely Lin on 01-19-2023 Hemoglobin (Bld) [Mass/Vol] 12.5 g/dL 13.0-17.0 [facility] Laboratory - CoagulationOrde red By: Gely Lin on 01-19-2023 PT Coag (PPP) [Time] 14.7 s 9.0-12.9 [facility] Lactate [Moles/volume] in Se rum or PlasmaOrdered By: Gely Lin on 01-19-2023 Lactate [Moles/Vol] 1.6 mmol/L 0.5-2.2 [facility] Leukocytes [#/volume] correc amparo for nucleated erythrocytes in Blood by Automated counOrdered By: Gely Lin on 01-19-2023 WBC corrected for nucl RBC Auto (Bld) [#/Vol] 5.6 10*3/uL 4.1-10.5 [facility] Lymphocytes Auto (Bld) [#/Vo l]Ordered By: Gely Lin on 01-19-2023 Lymphocytes (Bld) [#/Vol] 0.6 10*3/uL 1.00-4.8 [facility] Lymphocytes/100 WBC Auto (Bl d)Ordered By: Gely Lin on 01-19-2023 Lymphocytes/100 WBC (Bld) 10.2 % . [facility] MCH Auto (RBC) [Entitic mass ]Ordered By: Gely Lin on 01-19-2023 MCH (RBC) [Entitic mass] 28.7 pg 27.5-35.2 [facility] MCHC Auto (RBC) [Mass/Vol]Or dered By: Gely Lin on 01-19-2023 MCHC (RBC) [Mass/Vol] 33.0 g/dL 32.5-35.6 [facility] MCV Auto (RBC) [Entitic vol] Ordered By: Gely Lin on 01-19-2023 MCV (RBC) [Entitic vol] 87.0 fL 83.5-101 [facility] Monocyte distribution width [Entitic volume] in Blood by AutomatedOrdered By: Gely Lin on 01-19-2023 Monocyte distribution width Auto (Bld) [Entitic vol] 25.73 % 0.00-20.00 [facility] Comment on above: For adults in ED, MD W > 20.0 may be associated with a higher risk of sepsis during the first 12 hrs of hospital admission Monocytes Auto (Bld) [#/Vol] Ordered By: Gely Lin on 01-19-2023 Monocytes (Bld) [#/Vol] 0.6 10*3/uL 0.0-0.8 [facility] Monocytes/100 WBC Auto (Bld) Ordered By: Gely Lin on 01-19-2023 Monocytes/100 WBC (Bld) 10.1 % . [facility] Neutrophils Auto (Bld) [#/Vo l]Ordered By: Gely Lin on 01-19-2023 Neutrophils (Bld) [#/Vol] 4.3 10*3/uL 1.8-7.7 [facility] Neutrophils/100 WBC Auto (Bl d)Ordered By: Gely Lin on 01-19-2023 Neutrophils/100 WBC (Bld) 76.6 % . [facility] No Panel InformationOrdered By: Gely Lin on 01-19-2023 Estimated GFR (CKD-EPI) > 60.0 mL/Min [facility] Creatinine Clearance (Chem 48.65 [facility] Nucleated erythrocytes [Pres ence] in Blood by Automated countOrdered By: Gely Lin on 01-19-2023 Nucleated RBC Auto Ql (Bld) 0.0 /100{WBC} 0-0.5 [facility] Platelet mean volume Auto (B ld) [Entitic vol]Ordered By: Gely Lin on 01-19-2023 Platelet mean volume (Bld) [Entitic vol] 8.2 fL 6.6-10.1 [facility] Platelet poor plasma interna tional normalized ratio (INR) by coagulation assay (relatOrdered By: Gely Lin on 01-19-2023 INR Coag (PPP) [Relative time] 1.3 {INR} [facility] Comment on above: INR Therapeutic Rang e [...] 01-19-2023 Platelets (Bld) [#/Vol] 202 10*3/uL 150-450 [facility] Potassium [Moles/volume] in Serum or PlasmaOrdered By: Gely Lin on 01-19-2023 Potassium [Moles/Vol] 3.6 mmol/L 3.5-5.1 [facility] RBC Auto (Bld) [#/Vol]Ordere d By: Gely Lin on 01-19-2023 RBC (Bld) [#/Vol] 4.35 10*6/uL 3.90-5.60 [facility] Serum or plasma anion gap de terminationOrdered By: Gely Lin on 01-19-2023 Anion gap [Moles/Vol] 13.1 mmol/L 6.0-15.0 [facility] Sodium [Moles/volume] in Ser um or PlasmaOrdered By: Gely Lin on 01-19-2023 Sodium [Moles/Vol] 136 mmol/L 136-145 [facility] Urea nitrogen [Mass/volume] in Serum or PlasmaOrdered By: Gely Lin on 01-19-2023 Urea nitrogen [Mass/Vol] 22 mg/dL 7-25 [facility] WBC Auto (Bld) [#/Vol]Ordere d By: Gely Lin on 01-19-2023 WBC (Bld) [#/Vol] 5.6 10*3/uL 4.1-10.5 [facility] Creatinine (Bld) [Mass/Vol]O rdered By: María Anderson on 01-13-2023 Creatinine [Mass/Vol] 1.0 mg/dL 0.6-1.3 [facility] Comment on above: ER/ESD physician is notified/shown all ISTAT results.Critical values may be confirmed by laboratory testing ifdeemed necessary by ER attending doctor. Alanine aminotransferase [En zymatic activity/volume] in Serum or PlasmaOrdered By: Trey العلي on 10-28-2022 ALT [Catalytic activity/Vol] 16 U/L 7-52 [facility] Albumin [Mass/volume] in Ser um or Plasma by Bromocresol green (BCG) dye binding methoOrdered By: Trey العلي on 10-28-2022 Albumin BCG dye [Mass/Vol] 3.9 g/dL 3.5-5.7 [facility] Alkaline phosphatase [Enzyma tic activity/volume] in Serum or PlasmaOrdered By: Trey العلي on 10-28-2022 ALP [Catalytic activity/Vol] 81 U/L 34-104 [facility] Aspartate aminotransferase [ Enzymatic activity/volume] in Serum or PlasmaOrdered By: Trey العلي on 10-28-2022 AST [Catalytic activity/Vol] 26 U/L 13-39 [facility] Basophils Auto (Bld) [#/Vol] Ordered By: Trey العلي on 10-28-2022 Basophils (Bld) [#/Vol] 0.0 10*3/uL 0.0-0.2 [facility] Basophils/100 WBC Auto (Bld) Ordered By: Trey العلي on 10-28-2022 Basophils/100 WBC (Bld) 0.7 % . [facility] Bilirubin.total [Mass/volume ] in Serum or PlasmaOrdered By: Trey العلي on 10-28-2022 Bilirubin [Mass/Vol] 0.5 mg/dL 0.3-1.0 [facility] Calcium [Mass/volume] in Ser um or PlasmaOrdered By: Trey العلي on 10-28-2022 Calcium [Mass/Vol] 9.0 mg/dL 8.6-10.3 [facility] Carbon dioxide, total [Moles /volume] in Serum or PlasmaOrdered By: Trey العلي on 10-28-2022 CO2 [Moles/Vol] 27.2 mmol/L 21.0-31.0 [facility] Chloride [Moles/volume] in S aime or PlasmaOrdered By: Trey العلي on 10-28-2022 Chloride [Moles/Vol] 106 mmol/L 98-107 [facility] Cholesterol [Mass/volume] in Serum or PlasmaOrdered By: Trey العلي on 10-28-2022 Cholesterol [Mass/Vol] 160 mg/dL 140-200 [facility] Comment on above: Chol less than 200 m g/dl low riskChol 201-239 mg/dl borderline riskChol 240 mg/dl and greater high risk Cholesterol in LDL Calc [Mas s/Vol]Ordered By: Trey العلي on 10-28-2022 Cholesterol in LDL [Mass/Vol] 82 mg/dL 0-100 [facility] Comment on above: LDL ATP III CLASSIFI CATIONLDL less than 100 mg/dL OptimalLDL 100-129 mg/dL Near or above optimalLDL 130-159 mg/dL Borderline highLDL 160-189 mg/dL HighLDL greater than 189 mg/dL Very high Cholesterol in VLDL Calc [Ma ss/Vol]Ordered By: Trey العلي on 10-28-2022 Cholesterol in VLDL [Mass/Vol] 14 mg/dL [facility] Creatinine [Mass/volume] in Serum or PlasmaOrdered By: Trey العلي on 10-28-2022 Creatinine [Mass/Vol] 0.96 mg/dL 0.70-1.30 [facility] Eosinophils Auto (Bld) [#/Vo l]Ordered By: Trey العلي on 10-28-2022 Eosinophils (Bld) [#/Vol] 0.1 10*3/uL 0.0-0.45 [facility] Eosinophils/100 WBC Auto (Bl d)Ordered By: Trey العلي on 10-28-2022 Eosinophils/100 WBC (Bld) 2.2 % . [facility] Erythrocyte distribution wid th Auto (RBC) [Ratio]Ordered By: Trey العلي on 10-28-2022 Erythrocyte distribution width (RBC) [Ratio] 14.6 % 12.0-14.8 [facility] Globulin Calc (S) [Mass/Vol] Ordered By: Trey العلي on 10-28-2022 Globulin (S) [Mass/Vol] 2.8 g/dL [facility] Glucose [Mass/volume] in Ser um or PlasmaOrdered By: Trey العلي on 10-28-2022 Glucose [Mass/Vol] 109 mg/dL 70-100 [facility] Comment on above: ADA recommended refe rence rangeRandom Glucose Reference Range is dependent on time and content of last meal. Glucose of more than 200 mg/dL in a nonstressed, ambulatory subject supports the diagnosis of Diabetes Mellitus. Glucose mean value [Mass/vol ume] in Blood Estimated from glycated hemoglobinOrdered By: Trey العلي on 10-28-2022 Average glucose Estimated from glycated hemoglobin (Bld) [Mass/Vol] 120 mg/dL [facility] Hematocrit Auto (Bld) [Volum e fraction]Ordered By: Trey العلي on 10-28-2022 Hematocrit (Bld) [Volume fraction] 37.7 % 38.8-50.0 [facility] Hemoglobin A1c percentageOrd ered By: Trey العلي on 10-28-2022 HbA1c (Bld) [Mass fraction] 5.8 % 4.3-5.6 [facility] Comment on above: Increased risk for d iabetes: 5.7 - 6.4diabetes: >6.4glycemic control for adults with diabetes: <7.0 Hemoglobin [Mass/volume] in BloodOrdered By: Trey العلي on 10-28-2022 Hemoglobin (Bld) [Mass/Vol] 12.5 g/dL 13.0-17.0 [facility] Leukocytes [#/volume] correc amparo for nucleated erythrocytes in Blood by Automated counOrdered By: Trey العلي on 10-28-2022 WBC corrected for nucl RBC Auto (Bld) [#/Vol] 5.1 10*3/uL 4.1-10.5 [facility] Lymphocytes Auto (Bld) [#/Vo l]Ordered By: Trey العلي on 10-28-2022 Lymphocytes (Bld) [#/Vol] 1.2 10*3/uL 1.00-4.8 [facility] Lymphocytes/100 WBC Auto (Bl d)Ordered By: Trey العلي on 10-28-2022 Lymphocytes/100 WBC (Bld) 23.6 % . [facility] MCH Auto (RBC) [Entitic mass ]Ordered By: Trey العلي on 10-28-2022 MCH (RBC) [Entitic mass] 29.6 pg 27.5-35.2 [facility] MCHC Auto (RBC) [Mass/Vol]Or dered By: Trey العلي on 10-28-2022 MCHC (RBC) [Mass/Vol] 33.2 g/dL 32.5-35.6 [facility] MCV Auto (RBC) [Entitic vol] Ordered By: Trey العلي on 10-28-2022 MCV (RBC) [Entitic vol] 89.1 fL 83.5-101 [facility] Monocytes Auto (Bld) [#/Vol] Ordered By: Trey العلي on 10-28-2022 Monocytes (Bld) [#/Vol] 0.7 10*3/uL 0.0-0.8 [facility] Monocytes/100 WBC Auto (Bld) Ordered By: Trey العلي on 10-28-2022 Monocytes/100 WBC (Bld) 14.3 % . [facility] Neutrophils Auto (Bld) [#/Vo l]Ordered By: Trey العلي on 10-28-2022 Neutrophils (Bld) [#/Vol] 3.0 10*3/uL 1.8-7.7 [facility] Neutrophils/100 WBC Auto (Bl d)Ordered By: Trey العلي on 10-28-2022 Neutrophils/100 WBC (Bld) 59.2 % . [facility] No Panel InformationOrdered By: Trey العلي on 10-28-2022 Estimated GFR (CKD-EPI) > 60.0 mL/Min [facility] Creatinine Clearance (Chem N/A [facility] Nucleated erythrocytes [Pres ence] in Blood by Automated countOrdered By: Trey العلي on 10-28-2022 Nucleated RBC Auto Ql (Bld) 0.0 /100{WBC} 0-0.5 [facility] Platelet mean volume Auto (B ld) [Entitic vol]Ordered By: Trey العلي on 10-28-2022 Platelet mean volume (Bld) [Entitic vol] 8.5 fL 6.6-10.1 [facility] Platelets Auto (Bld) [#/Vol] Ordered By: Trey العلي on 10-28-2022 Platelets (Bld) [#/Vol] 160 10*3/uL 150-450 [facility] Potassium [Moles/volume] in Serum or PlasmaOrdered By: Trey العلي on 10-28-2022 Potassium [Moles/Vol] 4.2 mmol/L 3.5-5.1 [facility] Protein [Mass/volume] in Ser um or PlasmaOrdered By: Trey العلي on 10-28-2022 Protein [Mass/Vol] 6.7 g/dL 6.4-8.9 [facility] RBC Auto (Bld) [#/Vol]Ordere d By: Trey العلي on 10-28-2022 RBC (Bld) [#/Vol] 4.23 10*6/uL 3.90-5.60 [facility] Serum or plasma albumin/glob ulin mass ratioOrdered By: Trey العلي on 10-28-2022 Albumin/Globulin [Mass ratio] 1.4 {ratio} [facility] Serum or plasma anion gap de terminationOrdered By: Trey العلي on 10-28-2022 Anion gap [Moles/Vol] 13.0 mmol/L 6.0-15.0 [facility] Serum or plasma high density lipoprotein (HDL) cholesterol measurementOrdered By: Trey العلي on 10-28-2022 Cholesterol in HDL [Mass/Vol] 64 mg/dL 29-71 [facility] Comment on above: HDL CHOL ATP-III CLA SSIFICATION Cardiovascular RiskHDL > or equal to 60 mg/dL LOWHDL < 40 mg/dL HIGH Serum or plasma total choles terol/high density lipoprotein (HDL) cholesterol mass ratOrdered By: Trey العلي on 10-28-2022 Cholesterol.total/Chol esterol in HDL [Mass ratio] 2.5 {ratio} <5.0 [facility] Sodium [Moles/volume] in Ser um or PlasmaOrdered By: Trey العلي on 10-28-2022 Sodium [Moles/Vol] 142 mmol/L 136-145 [facility] Triglyceride [Mass/volume] i n Serum or PlasmaOrdered By: Trey العلي on 10-28-2022 Triglyceride [Mass/Vol] 70 mg/dL 0-149 [facility] Comment on above: TRIG ATP III CLASSIF ICATIONTRIG less than 150 mg/dL NormalTRIG 150-199 mg/dL Borderline highTRIG 200-500 mg/dL High TRIG greater than 500 mg/dL Very highStandard traceable to the Center for Disease Conrtrol and Prevention (CDC) test method. Urate [Mass/volume] in Serum or PlasmaOrdered By: Trey العلي on 10-28-2022 Urate [Mass/Vol] 7.5 mg/dL 2.4-7.6 [facility] Urea nitrogen [Mass/volume] in Serum or PlasmaOrdered By: Trey العلي on 10-28-2022 Urea nitrogen [Mass/Vol] 24 mg/dL 7-25 [facility] WBC Auto (Bld) [#/Vol]Ordere d By: Trey العلي on 10-28-2022 WBC (Bld) [#/Vol] 5.1 10*3/uL 4.1-10.5 [facility] BNPon 10-08-2022 Natriuretic peptide B (Bld) [Mass/Vol] 1354.0 pg/mL Normal <=1,800.0 [facility] Comment on above: Performed By: #### H STROPN, BNP, CK, CMP #### [facility] [address] [address] [address] Pedro Degroot CBC AUTO DIFFon 10-08-2022 BASO # 0.0 103/ul Normal 0.0-0.1 [facility] Comment on above: Performed By: #### C BC ####[facility] [address] [place] [id number] Degroot Basophils/100 WBC (Bld) 0.8 % Normal 0.2-2.0 [facility] Comment on above: Performed By: #### C BC ####[facility] [address] [place] [id number] eDgroot EO # 0.1 103/ul Normal 0.0-0.7 [facility] Comment on above: Performed By: #### C BC ####[facility] [address] [address]Dr. Pedro Degroot Eosinophils/100 WBC (Bld) 1.7 % Normal 0.9-7.0 [facility] Comment on above: Performed By: #### C BC ####[facility] [address] [place], [place] [address]Dr. Pedro Degroot Erythrocyte distribution width (RBC) [Ratio] 14.1 % Normal 11.0-15.0 [facility] Comment on above: Performed By: #### C BC ####[facility] [address] [place], [place] [address]Dr. Pedro Degroot Hematocrit (Bld) [Volume fraction] 40.0 % Critically low 42.0-54.0 [facility] Comment on above: Performed By: #### C BC ####[facility] [address] [place], [place] [address]Dr. Pedro Degroot Hemoglobin (Bld) [Mass/Vol] 12.7 g/dL Critically low 14.0-18.0 [facility] Comment on above: Performed By: #### C BC ####[facility] [address] [place], [place] [address]Dr. Pedro Degroot IG # 0.06 10e3/ul Critically high 0.00-0.03 [facility] Comment on above: Performed By: #### C BC ####[facility] [address] [place], [place] [address]Dr. Pedro Degroot IG % 1.2 % Critically high 0.0-0.5 [facility] Comment on above: Performed By: #### C BC ####[facility] [address] [place], [place] [address]Dr. Pedro Degroot LYMPH # 0.9 103/ul Critically low 1.2-3.8 [facility] Comment on above: Performed By: #### C BC ####[facility] [address] [place], [place] [address]Dr. Pedro Degroot Lymphocytes/100 WBC (Bld) 17.6 % Critically low 20.5-60.0 [facility] Comment on above: Performed By: #### C BC ####[facility] [address] [place] [id number]. Pedro Degroot MANUAL DIFF REQ NO Normal [facility] Comment on above: Performed By: #### C BC ####[facility] [address] [place] [id number]. Pedro Degroot MCH (RBC) [Entitic mass] 29.1 pg Normal 25.9-34.0 [facility] Comment on above: Performed By: #### C BC ####[facility] [address] [address]Dr. Pedro Degroot MCHC (RBC) [Mass/Vol] 31.8 g/dL Normal 29.9-35.2 [facility] Comment on above: Performed By: #### C BC ####[facility] [address] [place], [place] [address]Dr. Pedro Degroot MCV (RBC) [Entitic vol] 91.5 fL Normal 80.0-94.0 [facility] Comment on above: Performed By: #### C BC ####[facility] [address] [address]Dr. Pedro Degroot MONO # 0.7 103/ul Normal 0.3-0.8 [facility] Comment on above: Performed By: #### C BC ####[facility] [address] [address]Dr. Pedro Degroot Monocytes/100 WBC (Bld) 12.6 % Critically high 1.7-12.0 [facility] Comment on above: Performed By: #### C BC ####[facility] [address] [place] [id number]. Pedro Degroot NEUT # 3.4 103/ul Normal 1.4-6.5 [facility] Comment on above: Performed By: #### C BC ####[facility] [address] [address]Dr. Pedro Degroot Neutrophils/100 WBC (Bld) 66.1 % Normal 43.0-75.0 [facility] Comment on above: Performed By: #### C BC ####[facility] [address] [place], [place] [address]Br. Pedro Degroot Platelet mean volume (Bld) [Entitic vol] 10.8 fL Normal 9.5-13.5 [facility] Comment on above: Performed By: #### C BC ####[facility] [address] [place], [place] [address]Wg. Pedro Degroot PLT 170 103/ul Normal 150-450 [facility] Comment on above: Performed By: #### C BC ####[facility] [address] [place], [place] [address]Yp. Pedro Degroot RBC 4.37 106/ul Critically low 4.70-6.10 [facility] Comment on above: Performed By: #### C BC ####[facility] [address] [place] [id number]. Pedro Degroot WBC 5.2 103/ul Normal 4.0-11.0 [facility] Comment on above: Performed By: #### C BC ####[facility] [address] [id number]. Pedro Degroot CPKon 10-08-2022 CK [Catalytic activity/Vol] 89 U/L Normal 39-308 [facility] Comment on above: Performed By: #### H STROPN, BNP, CK, CMP ####[facility] [address] [place], [place] [address] STROKE HEAD WOon 10-09-19 [...] by: KATHLEEN MATHIS Date: 2022-10-08 14:12 Normal [facility] PH VENOUS BLOODon 10-08-2022 PCO2 VENOUS 49.9 mmHg Normal 40.0-52.0 [facility] Comment on above: Performed By: #### P HVEN #### [facility] [address] [address] [address] Pedro Degroot pH VENOUS 7.348 Normal 7.330-7.43 0 [facility] Comment on above: Performed By: #### P HVEN #### [facility] [address] [place] [address] Dr. Pedro Degroot POINT OF CARE GLUCOSEon 09-14 Glucose [Mass/Vol] 106 mg/dL Normal 74-[address] [facility] Comment on above: Performed By: #### P OCGLUC #### [facility] [address] [place] [address] Dr. Pedro Degroot PROF 14(COMP METB)on 023 Albumin [Mass/Vol] 3.7 g/dL Normal 3.4-5.0 [facility] Comment on above: Performed By: #### H STROPN, BNP, CK, CMP #### [facility] [address] [place] [address] Dr. Pedro Degroot Albumin/Globulin [Mass ratio] 0.9 {ratio} Normal [facility] Comment on above: Performed By: #### H STROPN, BNP, CK, CMP #### [facility] [address] [place] [address] Dr. Pedro Degroot ALP [Catalytic activity/Vol] 99 U/L Normal 46-116 [facility] Comment on above: Performed By: #### H STROPN, BNP, CK, CMP #### [facility] [address] [place] [address] Dr. Pedro Degroot ALT [Catalytic activity/Vol] 30 U/L Normal 16-63 [facility] Comment on above: Performed By: #### H STROPN, BNP, CK, CMP #### [facility] [address] [address] [address] Pedro Degroot Anion gap [Moles/Vol] 13.6 mmol/L Normal Th [facility] Comment on above: Performed By: #### H STROPN, BNP, CK, CMP #### [facility] [address] [place] [address] Dr. Pedro Degroot AST [Catalytic activity/Vol] 35 U/L Normal 15-37 [facility] Comment on above: Performed By: #### H STROPN, BNP, CK, CMP #### [facility] [address] [address] [address] Pedro Degroot Bilirubin [Mass/Vol] 0.4 mg/dL Normal 0.2-1.0 [facility] Comment on above: Performed By: #### H STROPN, BNP, CK, CMP #### [facility] [address] [place] [address] Dr. Pedro Degroot Calcium [Mass/Vol] 9.7 mg/dL Normal 8.5-10.1 [facility] Comment on above: Performed By: #### H STROPN, BNP, CK, CMP #### [facility] [address] [place] [address] Dr. Pedro Degroot Chloride [Moles/Vol] 103 mmol/L Normal 98-107 [facility] Comment on above: Performed By: #### H STROPN, BNP, CK, CMP #### [facility] [address] [address] [address] Pedro Degroot CO2 [Moles/Vol] 27.8 mmol/L Normal 21.0-32.0 [facility] Comment on above: Performed By: #### H STROPN, BNP, CK, CMP #### [facility] [address] [place] [address] Dr. Pedro Degroot Creatinine [Mass/Vol] 0.86 mg/dL Normal 0.70-1.30 [facility] Comment on above: Performed By: #### H STROPN, BNP, CK, CMP #### [facility] [address] [address] [address] Pedro Degroot EGFR-AF NIGERIAN >60 Normal >=60 [facility] Comment on above: Performed By: #### H STROPN, BNP, CK, CMP #### [facility] [address] [address] [address] Pedro Degroot EGFR-NON AF NIGERIAN >60 Normal >=60 [facility] Comment on above: Performed By: #### H STROPN, BNP, CK, CMP #### [facility] [address] [address] [address] Pedro Degroot Globulin (S) [Mass/Vol] 4.2 g/dL Normal [facility] Comment on above: Performed By: #### H STROPN, BNP, CK, CMP #### [facility] [address] [address] [address] Pedro Degroot Glucose [Mass/Vol] 110 mg/dL Critically high 74-106 [facility] Comment on above: Performed By: #### H STROPN, BNP, CK, CMP #### [facility] [address] [address] [address] Pedro Degroot Potassium [Moles/Vol] 4.4 mmol/L Normal 3.5-5.1 [facility] Comment on above: Performed By: #### H STROPN, BNP, CK, CMP #### [facility] [address] [address] [address] Pedro Degroot Protein [Mass/Vol] 7.9 g/dL Normal 6.4-8.[address] [facility] Comment on above: Performed By: #### H STROPN, BNP, CK, CMP #### [facility] [address] [address] [address] Pedro Degroot Sodium [Moles/Vol] 140 mmol/L Normal 136-145 [facility] Comment on above: Performed By: #### H STROPN, BNP, CK, CMP #### [facility] [address] [address] [address] Pedro Degroot Urea nitrogen [Mass/Vol] 27.0 mg/dL Critically high 7.0-18.0 [facility] Comment on above: Performed By: #### H STROPN, BNP, CK, CMP #### [facility] [address] [address] [address] Pedro Degroot Urea nitrogen/Creatinine [Mass ratio] 31.4 mg/mg Normal [facility] Comment on above: Performed By: #### H STROPN, BNP, CK, CMP #### [facility] [address] [address] [address] Pedro Degroot PROTIMEon 10-08-2022 INR Coag (PPP) [Relative time] 1.62 {INR} Normal [facility] Comment on above: Performed By: #### P T #### [facility] [address] [place] [address] Dr. Pedro Degroot INR GUIDELINES SEE BELOW Normal [facility] Comment on above: Result Comment: JARVIS RED INR: 2.0 - 3.0 CONDITIONS NOT LISTED BELOW 2.5 - 3.5 FOR PROSTHETIC HEART VALVE REPLACEMENT 2.5 - 3.5 RECURRENT THROMBOSIS Performed By: #### P T #### [facility] [address] [address] [address] Pedro Degroot PT Coag (PPP) [Time] 16.7 s Critically high 9.0-11.6 [facility] Comment on above: Performed By: #### P T #### [facility] [address] [place] [address] Dr. Pedro Degroot TROPONIN, HIGH SENSITIVITYon 10-08-2022 HSTROP 21.3 pg/mL Normal 4.0-76.1 [facility] Comment on above: Result Comment: CUT- OFF POINTS HAVE BEEN ESTABLISHED BASED ON THE FOURTH UNIVERSAL DEFINITIONS OF MYOCARDIAL INFARCTION. THE UPPER REFERENCE LIMIT (URL) OF TROPONIN, DEFINED THE 99TH PERCENTILE OF cTnI DISTRIBUTION IN A REFERENCE POPULATION, HAS BEEN CONFIRMED THE DECISION THRESHOLD FOR MT DIAGNOSIS. Performed By: #### H STROPN, BNP, CK, CMP #### [facility] [address] [address] [address] Pdero Degroot POINT OF CARE GLUCOSEon 01-0 Glucose [Mass/Vol] 111 mg/dL Critically high 74-[address] [facility] Comment on above: Performed By: #### P OCGLUC ####[facility] [address] [address]Dr. Pedro Degroot PROTIMEon 06-17-2022 INR Coag (PPP) [Relative time] 1.14 {INR} Normal [facility] Comment on above: Performed By: #### P T #### [facility] [address] [address] [address] Pedro Degroot INR GUIDELINES SEE BELOW Normal [facility] Comment on above: Result Comment: JARVIS RED INR: 2.0 - 3.0 CONDITIONS NOT LISTED BELOW 2.5 - 3.5 FOR PROSTHETIC HEART VALVE REPLACEMENT 2.5 - 3.5 RECURRENT THROMBOSIS Performed By: #### P T #### [facility] [address] [address] [address] Pedro Degroot PT Coag (PPP) [Time] 12.2 s Critically high 9.0-11.6 [facility] Comment on above: Performed By: #### P T #### [facility] [address] [address] [address] Pedro Degroot POINT OF CARE GLUCOSEon 03-16 Glucose [Mass/Vol] 104 mg/dL Normal 74-106 [facility] Comment on above: Performed By: #### P OCGLUC ####[facility] [address] [address]Dr. Pedro Degroot PROTIMEon 04-08-2022 INR Coag (PPP) [Relative time] 1.08 {INR} Normal [facility] Comment on above: Performed By: #### P T ####[facility] [address] [address]Dr. Pedro Degroot INR GUIDELINES SEE BELOW Normal [facility] Comment on above: Result Comment: JARVIS RED INR: 2.0 - 3.0 CONDITIONS NOT LISTED BELOW 2.5 - 3.5 FOR PROSTHETIC HEART VALVE REPLACEMENT 2.5 - 3.5 RECURRENT THROMBOSIS Performed By: #### P T ####[facility] [address] [address]Dr. Pedro Degroot PT Coag (PPP) [Time] 11.6 s Normal 9.0-11.6 [facility] Comment on above: Performed By: #### P T ####[facility] [address] [place], [place] [address]Wp. Pedro Degroot XR Shoulder Complete Right*o n [...] by María Madison on 03/31/2022 1526 Normal [facility] Specialist Echocardiogramon 02-20-[address], [address] [address] TRANSTHORACIC ECHOCARDIOGRAM REPORT Patient Name: FANI CHUA Reading Physician: [id number] Bonita Kingsley MD, [facility] Study Date: 02/20/2022 Referring [id number] BONITA KINGSLEY Physician: MRN/PID: [id number] PCP: Fer العلي MD Accession/Order#: [id number] [facility] Location: Date of : 1935 Fellow: Gender: M Nurse: Admit Date: Belt Weaver: Karly Lin [facility], T Height: 175.26 cm CC Report to: Weight: 80.29 kg Study Type: Echocardiogram BSA: 1.96 m2 Blood Pressure: 152 /88 mmHg Diagnosis/ICD: 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; 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; 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, Former Smoker, Overweight, Pulmonary Hypertension Procedure/CPT: Echo Complete w Full Doppler-[id number] Study Detail: The following Echo studies were [...] mmHg PIEDV: 1.87 m/s PADP: 16.9 mmHg [id number] Bonita Kingsley MD, FACC Electronically signed on 02/25/2022 at 5:39:24 PM Final Normal [facility] Tobacco Screening.on 022 Adult depression screening assessment No [facility] wayne jordan 250 DO Work Phone: Fall risk assessment a) No falls within the last year Constance Hogue 250 DO Work Phone: Tobacco use status CP b) No Constance Hogue 250 DO Work Phone: Bacteria identified Aer cx N om (Unsp spec)Ordered By: Rubio Pineda on 02-05-2022 Superficial Wound Culture Proteus mirabilis [facility] XR LSPINE W_OBLS AND FLEX_EX Ton 01-02-2022 [...] by: ORLY WOLFE Date: 2022-01-02 17:00 Normal [facility] Tobacco Screening.on 021 Fall risk assessment b) One or more fall s in the last year [facility] Kayla jordan 250 DO Work Phone: Tobacco use status [facility]PH[facility] b) No [facility] Robert jordan 250 DO Work Phone: XR hip RT min 2V(w/wo pelvis )*on 03-19-2021 XR hip RT min 2V(w/wo pelvis)* [facility] [employer] Other XR hip RT min 2V(w/wo pelvis)* [facility] [employer] Other XR hip RT min 2V(w/wo pelvis)* [facility] [employer] Other XR hip RT min 2V(w/wo pelvis)* [place] [address] [employer] Other XR hip RT min 2V(w/wo pelvis)* XRay Report [employer] Other XR hip RT min 2V(w/wo pelvis)* Signed [employer] Other XR hip RT min 2V(w/wo pelvis)* Patient: Fani Chua MR#: [id number] [employer] Other XR hip RT min 2V(w/wo pelvis)* : 1935 Acct:[id number] [employer] Other XR hip RT min 2V(w/wo pelvis)* Age/Sex: 85 / M ADM Date: 03/19/21 [employer] Other XR hip RT min 2V(w/wo pelvis)* Loc: [facility] Room: Type: [facility] [employer] Other XR hip RT min 2V(w/wo pelvis)* Attending Dr: Fani Johnston MD [employer] Other XR hip RT min 2V(w/wo pelvis)* Ordering Provider: Fani Johnston MD [employer] Other XR hip RT min 2V(w/wo pelvis)* Date of Service: 03/19/21 [employer] Other XR hip RT min 2V(w/wo pelvis)* XR/XR hip RT min 2V(w/wo pelvis)*: History of total replacement of right [employer] Other XR hip RT min 2V(w/wo pelvis)* hip [employer] Other XR hip RT min 2V(w/wo pelvis)* Copies to: Fani Johnston MD [employer] Other XR hip RT min 2V(w/wo pelvis)* RIGHT HIP - 2 views: [employer] Other XR hip RT min 2V(w/wo pelvis)* CLINICAL HISTORY: Follow-up knee replacement. [employer] Other XR hip RT min 2V(w/wo pelvis)* COMPARISON: 01/30/2021 [employer] Other XR hip RT min 2V(w/wo pelvis)* AP and frog-lateral views were obtained. There is osteopenia. A hip prosthesis is again visualized. [employer] Other XR hip RT min 2V(w/wo pelvis)* The hardware appears intact and unchanged in prior. There is no developing fracture or dislocation. [employer] Other XR hip RT min 2V(w/wo pelvis)* There are no significant soft tissue abnormalities. Hemostasis clips are again visualized within the [employer] Other XR hip RT min 2V(w/wo pelvis)* pelvis and near the greater trochanter. [employer] Other XR hip RT min 2V(w/wo pelvis)* XR/XR hip RT min 2V(w/wo pelvis)* [employer] Other XR hip RT min 2V(w/wo pelvis)* IMPRESSION: [employer] Other XR hip RT min 2V(w/wo pelvis)* STABLE APPEARANCE OF HIP REPLACEMENT. [employer] Other XR hip RT min 2V(w/wo pelvis)* Impression dictated by: Cyn Llamas M.D.03/19/2021 12:46 PM [employer] Other XR hip RT min 2V(w/wo pelvis)* Dictation Location: [place] [address] [employer] Other XR hip RT min 2V(w/wo pelvis)* Transcribed By: PWS 03/19/21 1246 [employer] Other XR hip RT min 2V(w/wo pelvis)* Dictated By: Cyn Llamas MD 03/19/21 1245 [employer] Other XR hip RT min 2V(w/wo pelvis)* Signed By: [employer] Other XR hip RT min 2V(w/wo pelvis)* 03/19/21 1246 [employer] Other Complete Blood Count + Diffe rentialon 02-24-2020 Basophils/100 WBC (Bld) 0.7 % 0.0 - 2.0 [facility] [address] [place] Work Phone: Erythrocyte distribution width (RBC) [Ratio] 13.3 % See Below [facility] [address] [place] Work Phone: Comment on [...] (Bld) 18.0 % See Below [facility] [address] [place] Work Phone: Comment on above: Reference Range: 13. 0 - 44.0 MCHC (RBC) [Mass/Vol] 31.4 g/dL below low threshold See Below [facility] [address] [place] Work Phone: Comment on above: Reference Range: 32. 0 - 36.0 MCV (RBC) [Entitic vol] 96 fL 80 - 100 [facility] [address] [place] Work Phone: Monocytes/100 WBC (Bld) 11.3 % 2.0 - 10.0 [facility] [address] [place] Work Phone: Neutrophils/100 WBC (Bld) 66.1 % See Below [facility] [address] [place] Work Phone: Comment on above: Reference Range: 40. 0 - 80.0 Platelets (Bld) [#/Vol] 268 10*3/uL 150 - 450 -Cardiology [facility] [address] [place] Work Phone: RBC (Bld) [#/Vol] 4.14 {x10E12/L} below low threshold See Below [facility] [address] [place] Work Phone: Comment on above: Reference Range: 4.5 0 - 5.90 WBC (Bld) [#/Vol] 8.7 10*3/uL 4.4 - 11.3 -Car diology -[facility] Dominick АлександрAppdralizette [address] [place] Work Phone: Complete Blood Count + Differential 0.6 % 0.0 - 0.9 [facility] Elbert Александрcentra [facility] [address] [place] Work Phone: Comment on above: Immature Granulocyte Count (IG) includes promyelocytes, myelocytes and metamyelocytes but does not include bands. Percent differential counts (%) should be interpreted in the context of the absolute cell counts (cells/L). Complete Blood Count + Differential 3.3 % 0.0 - 6.0 [facility] Elbert А[address]андрilion [address] [place] Work Phone: Complete Blood Count + Differential 5.72 {x10E9/L} above high threshold See Below [facility] Dominick Pav[address] [place] Work Phone: Comment on above: Reference Range: 1.6 0 - 5.50 Complete Blood Count + Differential 1.56 {x10E9/L} See Below [facility] Elbert Atbroxilion [address] [place] Work Phone: Comment on above: Reference Range: 0.8 0 - 3.00 Complete Blood Count + Differential 0.98 {x10E9/L} above high threshold See Below [facility]-Cardiology -[facility] Elbert Atbroxilion [address] [place] Work Phone: Comment on above: Reference Range: 0.0 5 - 0.80 Complete Blood Count + Differential 0.29 {x10E9/L} See Below [facility]-Cardiology -[facility] Elbert [address] [place] Work Phone: Comment on above: Reference Range: 0.0 0 - 0.40 Complete Blood Count + Differential 0.06 {x10E9/L} See Below [facility]-Cardiology -[facility] Dominick [address] [place] Work Phone: Comment on above: Reference Range: 0.0 0 - 0.10 Laboratory - Chemistry and C hemistry - challengeon 02-24-2020 Anion gap [Moles/Vol] 14 mmol/L 10 - 20 MG- Cardiology -[facility] Dominick [address] [place] Work Phone: Calcium [Mass/Vol] 9.7 mg/dL 8.6 - 10.3 MG-Car diology -[facility] Elbert [address] [place] Work Phone: Chloride [Moles/Vol] 103 mmol/L 98 - 107 MG-C ardiology -[facility] Dominick [address] [place] Work Phone: CO2 [Moles/Vol] 29 mmol/L 21 - 32 MG-Cardio logy -[facility] Dominick [address] [place] Work Phone: Creatinine [Mass/Vol] 1.04 mg/dL See Below MG- Cardiology -[facility] Dominick [address] [place] Work Phone: Comment on above: Reference Range: 0.5 0 - 1.30 Glucose [Mass/Vol] 102 mg/dL above high threshold 74 - 99 [facility]-Cardiology -[facility] Elbert [address] [place] Work Phone: Potassium [Moles/Vol] 4.7 mmol/L 3.5 - 5.3 MG- Cardiology -[facility] Elbert [address] [place] Work Phone: Sodium [Moles/Vol] 141 mmol/L 136 - 145 MG-Car diology -[facility] Dominick Atbroxsapphire [address] [place] Work Phone: Urea nitrogen [Mass/Vol] 26 mg/dL above high threshold 6 - 23 [facility]-Cardiology -[facility] Dominick Perlaon [address] [place] Work Phone: Laboratory - Coagulationon 0 02-24-2020 INR Coag (PPP) [Relative time] 2.2 {INR} above high threshold 0.9 - 1.1 [facility]-Cardiology -[facility] Dominick Hinton [address] [place] Work Phone: PT Coag (PPP) [Time] 26.0 s above high threshold See Below [facility]-Cardiology -[facility] Dominick Hinton [address] [place] Work Phone: Comment on above: Reference Range: 10. 1 - 13.3 No Panel Informationon 02-23 >60 >60 [facility]-Cardiology -[facility] Dominick Hinton [address] [place] Work Phone: Comment on above: CALCULATIONS OF INA MATED GFR ARE PERFORMED USING THE MDRD STUDY EQUATION FOR THE IDMS-TRACEABLE CREATININE METHODS. CLIN CHEM 2007;53:766-72 CT TAVR Full Contrast CH/ABD /Pelvison 02-15-2020 CT TAVR Full Contrast CH/ABD/Pelvis Interpreted by: LAM BROUSSARD02/21/20 08:59Addendum BeginsMRN: [id number] Name: FANI CHUA ADDENDUM:NON-CARDIOVASCUL AR CHEST FINDINGS [...] ABDOMENOR PELVIS OUTSIDE THE CARDIOVASCULAR SYSTEMAddendum EndsMRN: [id number] Name: FANI CHUA STUDY: CT TAVR FULL CONTRAST CHEST/ABD/PELVIS; 02/15/2020 11:18 am INDICATION:sob. COMPARISON:None. ORDERING CLINICIAN:VI MELGAR TECHNIQUE:Multi-detector CT technology was employed [employer] CT 64-slicescanner. Helical multidetector acquisition of the [...] trileaflet aortic valve. Aortic valve calcium score 42197. Aortic annulus 25 x 35mm3. 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 Moderate atherosclerosis of abdominal aorta without evidence ofaneurysm or dissection. Reading Tip Cutter: Dr. Isai Baxter, Date: 02/17/2020 2:29 pmElectronically signed by: LAM BROUSSARD 02/21/20 08:59 Normal [facility]-Cardiology -[facility] Dominick [address] [place] Work Phone: Comment on above: ORDER REVISED TO A T H CT TAVR FULL CONTRAST CHEST/ABD/PELVIS BY RADIOLOGIST; Original Order Number: [id number] Vital Signs Date Time Vital Sign Value Performing Clinician Facility 02-01-2025 15:48-0400 Body height 175.3 cm Jayy Joshua [employer] Work Phone: [facility] 02-01-2025 15:48-0400 Body mass index (BMI) [Ratio] 23.64 kg/m2 Jayy Joshua [employer] Work Phone: [facility] 02-01-2025 15:48-0400 Body weight 72.62 kg Jayy Joshua [employer] Work Phone: [facility] 02-01-2025 15:48-0400 Diastolic blood pressure 74 mm[Hg] Jayy Joshua [employer] Work Phone: [facility] 02-01-2025 15:48-0400 Heart rate 56 /min Jayy Joshua [employer] Work Phone: [facility] 02-01-2025 15:48-0400 SaO2% (BldA) [Mass fraction] 95 % Jayy Joshua [employer] Work Phone: [facility] 02-01-2025 15:48-0400 Systolic blood pressure 124 mm[Hg] Jayy Joshua [employer] Work Phone: [facility] 12-13-2024 14:42-0400 Body mass index (BMI) [Ratio] 23.63 kg/m2 Jayy Joshua [employer] Work Phone: [facility] 12-13-2024 14:42-0400 Body weight 72.58 kg Jayy Joshua [employer] Work Phone: [facility] 12-13-2024 14:42-0400 Diastolic blood pressure 70 mm[Hg] Jayy Joshua [employer] Work Phone: [facility] 12-13-2024 14:42-0400 Heart rate 80 /min Jayy Joshua [employer] Work Phone: [facility] 12-13-2024 14:42-0400 SaO2% (BldA) [Mass fraction] 95 % Jayy Joshua [employer] Work Phone: [facility] 12-13-2024 14:42-0400 Systolic blood pressure 120 mm[Hg] Jayy Garciaos [employer] Work Phone: [facility] 12-12-2024 15:44-0400 Body height 172.7 cm Bonita Kingsley MD Work Phone: [facility] 12-12-2024 15:44-0400 Body mass index (BMI) [Ratio] 24.33 kg/m2 Bonita Kingsley MD Work Phone: [facility] 12-12-2024 15:44-0400 Body weight 72.58 kg Bonita Kingsley MD Work Phone: [facility] 12-12-2024 15:44-0400 Diastolic blood pressure 46 mm[Hg] Bonita Kingsley MD Work Phone: [facility] 12-12-2024 15:44-0400 Heart rate 72 /min Bonita Kingsley MD Work Phone: [facility] 12-12-2024 15:44-0400 Systolic blood pressure 98 mm[Hg] Bonita Kingsley MD Work Phone: [facility] 11-17-2024 10:51-0400 Body mass index (BMI) [Ratio] 22.89 kg/m2 María Anderson MD Work Phone: [facility] 11-17-2024 10:51-0400 Body weight 70.31 kg María Anderson MD Work Phone: [facility] 11-17-2024 10:51-0400 Diastolic blood pressure 64 mm[Hg] María Anderson MD Work Phone: [facility] 11-17-2024 10:51-0400 Heart rate 81 /min María Anderson MD Work Phone: [facility] 11-17-2024 10:51-0400 SaO2% (BldA) [Mass fraction] 97 % María Anderson MD Work Phone: [facility] 11-17-2024 10:51-0400 Systolic blood pressure 118 mm[Hg] María Anderson MD Work Phone: [facility] 10-04-2024 13:05-0400 Diastolic blood pressure 80 mm[Hg] Maria Fernanda Didion [employer] Work Phone: [facility] 10-04-2024 13:05-0400 Heart rate 74 /min Maria Fernanda Didion [employer] Work Phone: [facility] 10-04-2024 13:05-0400 Respiratory rate 16 /min Maria Fernanda Didion [employer] Work Phone: [facility] 10-04-2024 13:05-0400 SaO2% (BldA) [Mass fraction] 98 % Maria Fernanda Didion [employer] Work Phone: [facility] 10-04-2024 13:05-0400 Systolic blood pressure 120 mm[Hg] Maria Fernanda Didion [employer] Work Phone: [facility] 06-15-2024 17:10-0500 Diastolic blood pressure 71 mm[Hg] María Anderson MD Work Phone: [facility] 06-15-2024 17:10-0500 Heart rate 79 /min María Anderson MD Work Phone: [facility] 06-15-2024 17:10-0500 Respiratory rate 20 /min María Anderson MD Work Phone: [facility] 06-15-2024 17:10-0500 Systolic blood pressure 110 mm[Hg] María Anderson MD Work Phone: [facility] 06-15-2024 17:00-0500 SaO2% (BldA) [Mass fraction] 94 % María Anderson MD Work Phone: [facility] 06-15-2024 15:06-0500 Body temperature 99.6 [degF] María Anderson MD Work Phone: [facility] 06-15-2024 13:39-0500 Body height 175.26 cm María Anderson MD Work Phone: [facility] 06-15-2024 13:39-0500 Body weight 73.4 kg María Anderson MD Work Phone: [facility] 06-13-2024 14:34-0500 Body mass index (BMI) [Ratio] 24.07 kg/m2 Rosalinda Risaliti [employer] Work Phone: [facility] 06-13-2024 14:34-0500 Body weight 73.94 kg Rosalinda Risaliti [employer] Work Phone: [facility] 06-13-2024 14:34-0500 Diastolic blood pressure 80 mm[Hg] Rosalinda Risaliti [employer] Work Phone: [facility] 06-13-2024 14:34-0500 Heart rate 64 /min Rosalinda Risaliti [employer] Work Phone: [facility] 06-13-2024 14:34-0500 SaO2% (BldA) [Mass fraction] 94 % Rosalinda Risaliti [employer] Work Phone: [facility] 06-13-2024 14:34-0500 Systolic blood pressure 120 mm[Hg] Rosalinda Risaliti [employer] Work Phone: [facility] 05-18-2024 09:41-0500 Diastolic blood pressure 64 mm[Hg] Bonita Kingsley MD Work Phone: [facility] 05-18-2024 09:41-0500 Systolic blood pressure 120 mm[Hg] Bonita Kingsley MD Work Phone: [facility] 05-18-2024 09:38-0500 Body height 175.3 cm Bonita Kingsley MD Work Phone: [facility] 05-18-2024 09:38-0500 Body mass index (BMI) [Ratio] 24.19 kg/m2 Bonita Kingsley MD Work Phone: [facility] 05-18-2024 09:38-0500 Body weight 74.3 kg Bonita Kingsley MD Work Phone: [facility] 05-18-2024 09:38-0500 Heart rate 62 /min Bonita Kingsley MD Work Phone: [facility] 04-18-2024 14:08-0500 Body height 175.3 cm Bonita Kingsley MD Work Phone: [facility] 04-18-2024 14:08-0500 Body mass index (BMI) [Ratio] 23.98 kg/m2 Bonita Kingsley MD Work Phone: [facility] 04-18-2024 14:08-0500 Body weight 73.66 kg Bonita Kingsley MD Work Phone: [facility] 04-18-2024 14:08-0500 Diastolic blood pressure 60 mm[Hg] Bonita Kingsley MD Work Phone: [facility] 04-18-2024 14:08-0500 Heart rate 72 /min Bonita Kingsley MD Work Phone: [facility] 04-18-2024 14:08-0500 Systolic blood pressure 110 mm[Hg] Bonita Kingsley MD Work Phone: [facility] 04-13-2024 13:32-0400 Body height 175.[address] 04-13-2024 13:32-0400 Body mass index (BMI) [Ratio] 24.66 kg/m2 [address] 04-13-2024 13:32-0400 Body weight 75.[address] 04-13-2024 13:32-0400 Diastolic blood pressure 76 mm[Hg] [address] 04-13-2024 13:32-0400 Systolic blood pressure 134 mm[Hg] [address] 04-06-2024 14:40-0400 Body temperature 97.3 [degF] Maria Fernanda Palmerion [employer] Work Phone: [facility] 04-06-2024 14:40-0400 Diastolic blood pressure 64 mm[Hg] Maria Fernanda Didion [employer] Work Phone: [facility] 04-06-2024 14:40-0400 Heart rate 61 /min Maria Fernanda Didion [employer] Work Phone: [facility] 04-06-2024 14:40-0400 SaO2% (BldA) [Mass fraction] 91 % Maria Fernanda Palmerion [employer] Work Phone: [facility] 04-06-2024 14:40-0400 Systolic blood pressure 130 mm[Hg] Maria Fernanda Didion [employer] Work Phone: [facility] 03-30-2024 13:36-0400 Body height 175.3 cm Petr Perla [employer] Work Phone: [facility] 03-30-2024 13:36-0400 Body mass index (BMI) [Ratio] 23.92 kg/m2 Petr Jailenenagel [employer] Work Phone: [facility] 03-30-2024 13:36-0400 Body weight 73.48 kg Petr Keniagel [employer] Work Phone: [facility] 03-30-2024 13:36-0400 Diastolic blood pressure 83 mm[Hg] Petr Jailenenagel [employer]FFER Work Phone: [facility] 03-30-2024 13:36-0400 Heart rate 79 /min Petr Keniagel [employer] Work Phone: [facility] 03-30-2024 13:36-0400 Systolic blood pressure 145 mm[Hg] Petr Windnagel [employer] Work Phone: [facility] 03-07-2024 14:08-0400 Diastolic blood pressure 78 mm[Hg] Maria Fernanda Laws [employer] Work Phone: [facility] 03-07-2024 14:08-0400 Heart rate 83 /min Maria Fernanda Palmerion [employer] Work Phone: [facility] 03-07-2024 14:08-0400 SaO2% (BldA) [Mass fraction] 96 % Maria Fernanda Palmerion [employer] Work Phone: [facility] 03-07-2024 14:08-0400 Systolic blood pressure 138 mm[Hg] Maria Fernanda Palmerion [employer] Work Phone: [facility] 02-27-2024 15:42-0400 Body temperature 97.9 [degF] MD María Anderson Work Phone: [facility] 02-27-2024 15:42-0400 Diastolic blood pressure 79 mm[Hg] MD María Anderson Work Phone: [facility] 02-27-2024 15:42-0400 Heart rate 61 /min MD María Anderson Work Phone: [facility] 02-27-2024 15:42-0400 Respiratory rate 18 /min MD María Anderson Work Phone: [facility] 02-27-2024 15:42-0400 SaO2% (BldA) [Mass fraction] 93 % MD María Anderson Work Phone: [facility] 02-27-2024 15:42-0400 Systolic blood pressure 152 mm[Hg] MD María Anderson Work Phone: [facility] 02-27-2024 06:00-0400 Body weight 75.2 kg MD María Anderson Work Phone: [facility] 02-26-2024 13:30-0400 Diastolic blood pressure 65 mm[Hg] MD María Anderson Work Phone: [facility] 02-26-2024 13:30-0400 Heart rate 79 /min MD María Anderson Work Phone: [facility] 02-26-2024 13:30-0400 Respiratory rate 20 /min MD María Anderson Work Phone: [facility] 02-26-2024 13:30-0400 SaO2% (BldA) [Mass fraction] 99 % MD María Anderson Work Phone: [facility] 02-26-2024 13:30-0400 Systolic blood pressure 146 mm[Hg] MD María Anderson Work Phone: [facility] 02-26-2024 08:59-0400 Body temperature 98 [degF] MD María Anderson Work Phone: [facility] 02-26-2024 08:54-0400 Body height 175.26 cm MD María Anderson Work Phone: [facility] 02-26-2024 08:54-0400 Body weight 76.8 kg MD María Anderson Work Phone: [facility] 02-17-2024 14:58-0400 Body height 175.3 cm Rosalinda Risaliti [employer] Work Phone: [facility] 02-17-2024 14:58-0400 Body mass index (BMI) [Ratio] 24.45 kg/m2 Rosalinda Risaliti [employer] Work Phone: [facility] 02-17-2024 14:58-0400 Body weight 75.12 kg Rosalinda Risaliti [employer] Work Phone: [facility] 02-17-2024 14:58-0400 Diastolic blood pressure 70 mm[Hg] Rosalinda Risaliti [employer] Work Phone: [facility] 02-17-2024 14:58-0400 Heart rate 52 /min Rosalinda Risaliti [employer] Work Phone: [facility] 02-17-2024 14:58-0400 SaO2% (BldA) [Mass fraction] 93 % Rosalinda Risaliti [employer] Work Phone: [facility] 02-17-2024 14:58-0400 Systolic blood pressure 128 mm[Hg] Rosalinda Caro [employer] Work Phone: [facility] 01-22-2024 12:08-0400 Body temperature 97.8 [degF] MD María Anderson Work Phone: [facility] 01-22-2024 12:08-0400 Diastolic blood pressure 76 mm[Hg] MD María Anderson Work Phone: [facility] 01-22-2024 12:08-0400 Heart rate 64 /min MD María Anderson Work Phone: [facility] 01-22-2024 12:08-0400 Respiratory rate 14 /min MD María Anderson Work Phone: [facility] 01-22-2024 12:08-0400 SaO2% (BldA) [Mass fraction] 95 % MD María Anderson Work Phone: [facility] 01-22-2024 12:08-0400 Systolic blood pressure 150 mm[Hg] MD María Anderson Work Phone: [facility] 01-22-2024 04:18-0400 Body weight 73.3 kg MD María Anderson Work Phone: [facility] 01-21-2024 20:10-0400 Body height 175.26 cm MD María Anderson Work Phone: [facility] 01-21-2024 18:30-0400 Diastolic blood pressure 95 mm[Hg] MD María Anderson Work Phone: [facility] 01-21-2024 18:30-0400 Heart rate 78 /min MD María Anderson Work Phone: [facility] 01-21-2024 18:30-0400 Respiratory rate 18 /min MD María Anderson Work Phone: [facility] 01-21-2024 18:30-0400 SaO2% (BldA) [Mass fraction] 96 % MD María Anderson Work Phone: [facility] 01-21-2024 18:30-0400 Systolic blood pressure 143 mm[Hg] MD María Anderson Work Phone: [facility] 01-21-2024 15:16-0400 Body height 177.8 cm MD María Anderson Work Phone: [facility] 01-21-2024 15:16-0400 Body temperature 98.4 [degF] MD María Anderson Work Phone: [facility] 01-21-2024 15:16-0400 Body weight 77.2 kg MD María Anderson Work Phone: [facility] 12-29-2023 14:44-0400 Body temperature 98.7 [degF] MD María Anderson Work Phone: [facility] 12-29-2023 14:44-0400 Diastolic blood pressure 59 mm[Hg] MD María Anderson Work Phone: [facility] 12-29-2023 14:44-0400 Heart rate 57 /min MD María Anderson Work Phone: [facility] 12-29-2023 14:44-0400 SaO2% (BldA) [Mass fraction] 95 % MD María Anderson Work Phone: [facility] 12-29-2023 14:44-0400 Systolic blood pressure 115 mm[Hg] MD María Anderson Work Phone: [facility] 12-29-2023 04:44-0400 Respiratory rate 18 /min MD María Anderson Work Phone: [facility] 12-24-2023 15:26-0400 Body height 175.26 cm MD María Anderson Work Phone: [facility] 12-24-2023 05:31-0400 Body weight 70 kg MD María Anderson Work Phone: [facility] 12-23-2023 11:48-0400 Body temperature 98.4 [degF] MD María Anderson Work Phone: [facility] 12-23-2023 11:48-0400 Diastolic blood pressure 79 mm[Hg] MD María Anderson Work Phone: [facility] 12-23-2023 11:48-0400 Heart rate 69 /min MD María Anderson Work Phone: [facility] 12-23-2023 11:48-0400 Respiratory rate 17 /min MD María Anderson Work Phone: [facility] 12-23-2023 11:48-0400 SaO2% (BldA) [Mass fraction] 95 % MD María Anderson Work Phone: [facility] 12-23-2023 11:48-0400 Systolic blood pressure 126 mm[Hg] MD María Anderson Work Phone: [facility] 12-23-2023 06:19-0400 Body weight 71.5 kg MD María Anderson Work Phone: [facility] 12-22-2023 14:02-0400 Body height 175.26 cm MD María Anderson Work Phone: [facility] 12-21-2023 20:54-0400 Diastolic blood pressure 72 mm[Hg] MD María Anderson Work Phone: [facility] 12-21-2023 20:54-0400 Heart rate 69 /min MD María Anderson Work Phone: [facility] 12-21-2023 20:54-0400 SaO2% (BldA) [Mass fraction] 96 % MD María Anderson Work Phone: [facility] 12-21-2023 20:54-0400 Systolic blood pressure 129 mm[Hg] MD María Anderson Work Phone: [facility] 12-21-2023 19:00-0400 Body height 175.26 cm MD María Anderson Work Phone: [facility] 12-21-2023 19:00-0400 Body temperature 99.3 [degF] MD María Anderson Work Phone: [facility] 12-21-2023 19:00-0400 Body weight 74.3 kg MD María Anderson Work Phone: [facility] 12-21-2023 19:00-0400 Respiratory rate 20 /min MD María Anderson Work Phone: [facility] 12-20-2023 11:13-0400 Body temperature 98.5 [degF] MD María Anderson Work Phone: [facility] 12-20-2023 11:13-0400 Diastolic blood pressure 74 mm[Hg] MD María Anderson Work Phone: [facility] 12-20-2023 11:13-0400 Heart rate 87 /min MD María Anderson Work Phone: [facility] 12-20-2023 11:13-0400 Respiratory rate 16 /min MD María Anderson Work Phone: [facility] 12-20-2023 11:13-0400 SaO2% (BldA) [Mass fraction] 95 % MD María Anderson Work Phone: [facility] 12-20-2023 11:13-0400 Systolic blood pressure 133 mm[Hg] MD María Anderson Work Phone: [facility] 12-20-2023 06:58-0400 Body height 160.02 cm MD María Anderson Work Phone: [facility] 12-20-2023 06:58-0400 Body weight 73.1 kg MD María Anderson Work Phone: [facility] 12-20-2023 04:30-0400 Diastolic blood pressure 84 mm[Hg] MD María Anderson Work Phone: [facility] 12-20-2023 04:30-0400 Heart rate 70 /min MD María Anderson Work Phone: [facility] 12-20-2023 04:30-0400 Respiratory rate 20 /min MD María Anderson Work Phone: [facility] 12-20-2023 04:30-0400 SaO2% (BldA) [Mass fraction] 97 % MD María Anderson Work Phone: [facility] 12-20-2023 04:30-0400 Systolic blood pressure 124 mm[Hg] MD María Anderson Work Phone: [facility] 12-20-2023 00:46-0400 Body height 175.26 cm MD María Anderson Work Phone: [facility] 12-20-2023 00:46-0400 Body temperature 97.9 [degF] MD María Anderson Work Phone: [facility] 12-20-2023 00:46-0400 Body weight 73.93 kg MD María Anderson Work Phone: [facility] 09-29-2023 09:12-0400 Body height 175.3 cm Bonita Kingsley MD Work Phone: [facility] 09-29-2023 09:12-0400 Body mass index (BMI) [Ratio] 24.66 kg/m2 Bonita Kingsley MD Work Phone: [facility] 09-29-2023 09:12-0400 Body weight 75.75 kg Bonita Kingsley MD Work Phone: [facility] 09-29-2023 09:12-0400 Diastolic blood pressure 78 mm[Hg] Bonita Kingsley MD Work Phone: [facility] 09-29-2023 09:12-0400 Heart rate 64 /min Bonita Kingsley MD Work Phone: [facility] 09-29-2023 09:12-0400 Systolic blood pressure 128 mm[Hg] Bonita Kingsley MD Work Phone: [facility] 06-06-2023 16:05-0500 Body temperature 97.8 [degF] MD María Anderson Work Phone: [facility] 06-06-2023 16:05-0500 Diastolic blood pressure 70 mm[Hg] MD María Anderson Work Phone: [facility] 06-06-2023 16:05-0500 Heart rate 65 /min MD María Anderson Work Phone: [facility] 06-06-2023 16:05-0500 Respiratory rate 16 /min MD María Anderson Work Phone: [facility] 06-06-2023 16:05-0500 SaO2% (BldA) [Mass fraction] 95 % MD María Anderson Work Phone: [facility] 06-06-2023 16:05-0500 Systolic blood pressure 121 mm[Hg] MD María Anderson Work Phone: [facility] 06-06-2023 06:00-0500 Body weight 74.5 kg MD María Anderson Work Phone: [facility] 06-05-2023 10:50-0500 Body height 175.26 cm MD María Anderson Work Phone: [facility] 05-05-2023 16:26-0500 Diastolic blood pressure 80 mm[Hg] MD María Anderson Work Phone: [facility] 05-05-2023 16:26-0500 Heart rate 67 /min MD María Anderson Work Phone: [facility] 05-05-2023 16:26-0500 Respiratory rate 16 /min MD María Anderson Work Phone: [facility] 05-05-2023 16:26-0500 SaO2% (BldA) [Mass fraction] 97 % MD María Anderson Work Phone: [facility] 05-05-2023 16:26-0500 Systolic blood pressure 133 mm[Hg] MD María Anderson Work Phone: [facility] 05-05-2023 15:41-0500 Inhaled oxygen flow rate 6 L/min MD María Anderson Work Phone: [facility] 05-05-2023 15:00-0500 Body weight 135 mg MD María Anderson Work Phone: [facility] 05-05-2023 13:33-0500 Body height 175.26 cm MD María Anderson Work Phone: [facility] 05-05-2023 13:33-0500 Body mass index (BMI) [Ratio] 24.7 kg/m2 MD María Anderson Work Phone: [facility] 05-05-2023 13:33-0500 Body weight 76.2 kg MD María Anderson Work Phone: [facility] 05-05-2023 13:03-0500 Body temperature 98.3 [degF] MD María Anderson Work Phone: [facility] 04-13-2023 11:14-0400 Body height 175.26 cm MD María Anderson Work Phone: [facility] 04-13-2023 11:14-0400 Body mass index (BMI) [Ratio] 24.6 kg/m2 MD María Anderson Work Phone: [facility] 04-13-2023 11:14-0400 Body weight 75.74 kg MD María Anderson Work Phone: [facility] 04-13-2023 11:06-0400 Body temperature 97.5 [degF] MD María Anderson Work Phone: [facility] 04-13-2023 11:06-0400 Diastolic blood pressure 74 mm[Hg] MD María Anderson Work Phone: [facility] 04-13-2023 11:06-0400 Heart rate 55 /min MD María Anderson Work Phone: [facility] 04-13-2023 11:06-0400 Respiratory rate 18 /min MD María Anderson Work Phone: [facility] 04-13-2023 11:06-0400 Systolic blood pressure 127 mm[Hg] MD María Anderson Work Phone: [facility] 04-03-2023 08:43-0400 Body height 175.[address] 04-03-2023 08:43-0400 Body mass index (BMI) [Ratio] 24.66 kg/m2 [address] 04-03-2023 08:43-0400 Body weight 75.[address] 04-03-2023 08:43-0400 Diastolic blood pressure 74 mm[Hg] [address] 04-03-2023 08:43-0400 Systolic blood pressure 130 mm[Hg] [address] 04-02-2023 12:55-0400 Body height 175.26 cm MD María Anderson Work Phone: [facility] 04-02-2023 12:55-0400 Body mass index (BMI) [Ratio] 24.6 kg/m2 MD María Anderson Work Phone: [facility] 04-02-2023 12:55-0400 Body weight 75.74 kg MD María Anderson Work Phone: [facility] 04-02-2023 12:46-0400 Body temperature 98.4 [degF] MD María Anderson Work Phone: [facility] 04-02-2023 12:46-0400 Diastolic blood pressure 81 mm[Hg] MD María Anderson Work Phone: [facility] 04-02-2023 12:46-0400 Heart rate 65 /min MD María Anderson Work Phone: [facility] 04-02-2023 12:46-0400 Respiratory rate 18 /min MD María Anderson Work Phone: [facility] 04-02-2023 12:46-0400 Systolic blood pressure 124 mm[Hg] MD María Anderson Work Phone: [facility] 02-24-2023 09:32-0400 Body height 175.26 cm María Anderson Work Phone: [facility] [facility] DO Work Phone: 02-24-2023 09:32-0400 Body mass index (BMI) [Ratio] 24.78 kg/m2 María Burgos Monica Work Phone: [facility] [facility] DO Work Phone: 02-24-2023 09:32-0400 Body surface area Derived from formula 1.92 m2 María Anderson Work Phone: [facility] [facility] DO Work Phone: 02-24-2023 09:32-0400 Body weight 76.11 kg María Loretta Anderson Work Phone: [facility] [facility] DO Work Phone: 02-24-2023 09:32-0400 Diastolic blood pressure 76 mm[Hg] María Anderson Work Phone: [facility] [facility] DO Work Phone: 02-24-2023 09:32-0400 Heart rate 72 /min María Anderson Work Phone: [facility] [facility] DO Work Phone: 02-24-2023 09:32-0400 Systolic blood pressure 124 mm[Hg] María Anderson Work Phone: [facility] [facility] DO Work Phone: 01-19-2023 09:25-0400 Body height 175.26 cm DO Trey العلي Work Phone: [facility] 01-19-2023 09:25-0400 Body temperature 98.2 [degF] DO Trey Zohra Work Phone: [facility] 01-19-2023 09:25-0400 Body weight 77.1 kg DO Trey Zohra Work Phone: [facility] 01-19-2023 09:25-0400 Diastolic blood pressure 87 mm[Hg] DO Trey Zohra Work Phone: [facility] 01-19-2023 09:25-0400 Heart rate 60 /min DO Trey Zohra Work Phone: [facility] 01-19-2023 09:25-0400 Respiratory rate 20 /min DO Trey Zohra Work Phone: [facility] 01-19-2023 09:25-0400 SaO2% (BldA) [Mass fraction] 97 % DO Trey Zohra Work Phone: [facility] 01-19-2023 09:25-0400 Systolic blood pressure 154 mm[Hg] DO Trey Zohra Work Phone: [facility] 2022 10:43-0500 Body temperature 98.1 [degF] DO Trey Zohra Work Phone: [facility] 2022 10:43-0500 Diastolic blood pressure 84 mm[Hg] DO Trey Zohra Work Phone: [facility] 2022 10:43-0500 Heart rate 76 /min DO Trey Zohra Work Phone: [facility] 2022 10:43-0500 Respiratory rate 18 /min DO Trey Zohra Work Phone: [facility] 2022 10:43-0500 Systolic blood pressure 156 mm[Hg] DO Trey Zohra Work Phone: [facility] 03-19-2022 10:29-0400 Body temperature 97.2 [degF] DO Trey العلي Work Phone: [facility] 03-19-2022 10:29-0400 Diastolic blood pressure 85 mm[Hg] DO Trey العلي Work Phone: [facility] 03-19-2022 10:29-0400 Heart rate 81 /min DO Trey العلي Work Phone: [facility] 03-19-2022 10:29-0400 Respiratory rate 18 /min DO Trey العلي Work Phone: [facility] 03-19-2022 10:29-0400 Systolic blood pressure 147 mm[Hg] DO Trey العلي Work Phone: [facility] 03-05-2022 11:12-0400 Body height 175.26 cm DO Trey العلي Work Phone: [facility] 03-05-2022 11:12-0400 Body mass index (BMI) [Ratio] 25.4 kg/m2 DO Trey العلي Work Phone: [facility] 03-05-2022 11:12-0400 Body weight 78.01 kg DO Trey العلي Work Phone: [facility] 02-20-2022 10:45-0400 55 1 Trey Rekha Zohra Work Phone: [facility] [facility] [place] Work Phone: Comment on above: [id number] 02-13-2022 11:44-0400 Body height 175.26 cm Trey العلي Work Phone: [facility] 250 DO Work Phone: 02-13-2022 11:44-0400 Body mass index (BMI) [Ratio] 26.14 kg/m2 Trey العلي Work Phone: [facility] 250 DO Work Phone: 02-13-2022 11:44-0400 Body surface area Derived from formula 1.96 m2 Trey العلي Work Phone: [facility] [facility] DO Work Phone: 02-13-2022 11:44-0400 Body weight 80.29 kg Trey العلي Work Phone: [facility] [facility] DO Work Phone: 02-13-2022 11:44-0400 Diastolic blood pressure 70 mm[Hg] Trey العلي Work Phone: [facility] 250 DO Work Phone: 02-13-2022 11:44-0400 Heart rate 74 /min Trey العلي Work Phone: [facility] [facility] DO Work Phone: 02-13-2022 11:44-0400 Systolic blood pressure 134 mm[Hg] Trey العلي Work Phone: [facility] [facility] DO Work Phone: 02-04-2022 09:25-0400 Body temperature 97.7 [degF] DO Trey العلي Work Phone: [facility] 02-04-2022 09:25-0400 Diastolic blood pressure 71 mm[Hg] DO Trey العلي Work Phone: [facility] 02-04-2022 09:25-0400 Heart rate 76 /min DO Trey العلي Work Phone: [facility] 02-04-2022 09:25-0400 Respiratory rate 18 /min DO Trey العلي Work Phone: [facility] 02-04-2022 09:25-0400 Systolic blood pressure 150 mm[Hg] DO Trey العلي Work Phone: [facility] 10-09-2021 14:00-0400 Body height 175.26 cm María Stevenson II Other [facility] [employer] Other 10-09-2021 14:00-0400 Body mass index (BMI) [Ratio] 25.25 kg/m2 María Stevenson II Other [facility] [employer] Other 10-09-2021 14:00-0400 Body weight 77.57 kg María Stevenson II Other [facility] [employer] Other 05-28-2021 14:00-0500 Diastolic blood pressure 80 mm[Hg] Trey العلي Work Phone: [facility] [employer] [facility] [facility] DO Work Phone: 05-28-2021 14:00-0500 Systolic blood pressure 126 mm[Hg] Trye العلي Work Phone: [facility] [facility] DO Work Phone: 05-28-2021 13:55-0500 Body height 175.26 cm Trey العلي Work Phone: [facility] [facility] DO Work Phone: 05-28-2021 13:55-0500 Body mass index (BMI) [Ratio] 26.14 kg/m2 Trey العلي Work Phone: [facility] [employer] 250 DO Work Phone: 05-28-2021 13:55-0500 Body surface area Derived from formula 1.96 m2 Trey العلي Work Phone: [facility] [place] [facility] DO Work Phone: 05-28-2021 13:55-0500 Body weight 80.29 kg Trey العلي Work Phone: [facility] [facility] DO Work Phone: 05-28-2021 13:55-0500 Diastolic blood pressure 103 mm[Hg] Trey Rekha Zohra Work Phone: [facility] [facility] DO Work Phone: 05-28-2021 13:55-0500 Heart rate 70 /min Trey العلي Work Phone: [facility] 250 DO Work Phone: 05-28-2021 13:55-0500 Systolic blood pressure 144 mm[Hg] Trey Yanman Work Phone: [facility] [facility] DO Work Phone: 05-15-2021 14:30-0500 Body height 175.26 cm María Graham II Other [employer] Other 05-15-2021 14:30-0500 Body mass index (BMI) [Ratio] 25.1 kg/m2 María [place] II Other [employer] Other 05-15-2021 14:30-0500 Body weight 77.11 kg María Graham II Other [employer] Other 03-19-2021 10:45-0400 Body height 175.26 cm Fani Johnston Other [employer] Other 03-19-2021 10:45-0400 Body mass index (BMI) [Ratio] 25.1 kg/m2 Fani Johnston Other [employer] Other 03-19-2021 10:45-0400 Body weight 77.11 kg Fani Johnston Other [employer] Other Encounters Encounter Date Encounter Type Care Provider Facility Start: 02-22-2025 End: 02-22-2025 ambulatory Marisela [facility] Facility:[facility] Start: 02-15-2025 End: 02-15-2025 ambulatory Marisela [facility] Facility:[facility] Start: 02-08-2025 End: 02-08-2025 ambulatory Marisela [facility] Facility:[facility] Start: 02-01-2025 End: 02-01-2025 Office outpatient visit 25 minutes Jayy Joshua SOLE BUFFER Work Phone: [facility] Comment on above: Chronic systolic con gestive heart failure, NYHA class 2 (HCC) (Primary Dx); Throat congestion; Moderate major depression (HCC) Start: 02-01-2025 End: 02-01-2025 ambulatory JAYY JOSHUA Not Available Start: 02-01-2025 End: 02-01-2025 Bamboo flowsheet Jayy Joshua SOLE BUFFER Work Phone: [facility] Start: 02-01-2025 End: 02-01-2025 Bamboo flowsheet Jayy Joshua SOLE BUFFER Work Phone: [facility] Start: 02-01-2025 End: 02-01-2025 ambulatory [facility] Facility:[facility] Start: 01-25-2025 End: 01-25-2025 ambulatory [facility] Facility:[facility] Start: 01-18-2025 End: 01-18-2025 ambulatory [facility] Facility:[facility] Start: 01-11-2025 End: 01-11-2025 ambulatory Marisela [facility] Facility:[facility] Start: 01-09-2025 End: 01-09-2025 Clinisync Result Encounter Jayy Joshua SOLE BUFFER Work Phone: [facility] Unsolicited Start: 01-09-2025 End: 01-09-2025 Clinisync Result Encounter Jayy Joshua SOLE BUFFER Work Phone: [facility] Unsolicited Start: 01-04-2025 End: 01-04-2025 ambulatory Marisela [facility] Facility:[facility] Start: 12-28-2024 End: 12-28-2024 ambulatory [facility] Facility:[facility] Start: 12-20-2024 End: 12-20-2024 ambulatory [facility] Facility:[facility] Start: 12-13-2024 End: 12-13-2024 Office outpatient visit 25 minutes Jayy Joshua NP Work Phone: [facility] Comment on above: Chronic systolic con gestive heart failure, NYHA class 2 (HCC) (Primary Dx); Coronary artery disease involving [place] coronary artery of [place] heart without angina pectoris ; Mixed hyperlipidemia ; Chronic atrial fibrillation (HCC); Centrilobular emphysema (HCC); Prediabetes; History of bladder cancer; History of gout; Hypomagnesemia; Mixed anxiety and depressive disorder; Degeneration of intervertebral disc of lumbar region with discogenic back pain and lower extremity pain Start: 12-13-2024 End: 12-13-2024 ambulatory JAYY JOSHUA Not Available Start: 12-13-2024 End: 12-13-2024 ambulatory [facility] Facility:[facility] Start: 12-12-2024 End: 12-12-2024 Office outpatient visit 25 minutes Bonita Kingsley MD Work Phone: [facility] Comment on above: Congestive heart andrew lure, NYHA class 2, unspecified congestive heart failure type; Coronary artery disease involving [place] coronary artery of [place] heart without angina pectoris; Chronic atrial fibrillation (Multi); 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; Essential (primary) hypertension; Mixed hyperlipidemia; Nonrheumatic aortic valve stenosis; Status post transcatheter aortic valve replacement; Nonrheumatic mitral valve regurgitation; PVD (peripheral vascular disease); Stage 2 chronic kidney disease; Venous insufficiency (chronic) (peripheral); Pulmonary hypertension (Multi); Former smoker; BMI 24.0-24.9, adult Start: 12-12-2024 End: 12-12-2024 ambulatory [facility] Ambulatory Start: 12-01-2024 End: 12-01-2024 ambulatory [facility] Facility:[facility] Start: 11-17-2024 End: 11-18-2024 Office outpatient visit 25 minutes María Anderson MD Work Phone: [facility] Comment on above: Sinus congestion (Pr imary Dx); Throat discomfort; Light headedness; Dysfunction of both eustachian tubes; Bruising; Epistaxis; Chronic systolic congestive heart failure, NYHA class 2 ([facility]) Start: 11-17-2024 End: 11-18-2024 ambulatory MARÍA ANDERSON Not Available Start: 11-08-2024 End: 11-08-2024 ambulatory d [facility] Facility:[facility] Start: 10-20-2024 End: 10-20-2024 ambulatory d [facility] Facility:[facility] Start: 10-17-2024 End: 10-17-2024 ambulatory d [facility] Facility:[facility] Start: 10-07-[address] [facility] Facility :[facility] Start: 10-04-2024 End: 10-04-2024 Clinisync Result Encounter Buck Cerrato MD Work Phone: [facility] External Department Unsolicited Start: 10-04-2024 End: 10-04-2024 Clinisync Result Encounter Buck Cerrato MD Work Phone: [facility] External Department Unsolicited Start: 10-04-2024 End: 10-04-2024 Office outpatient visit 15 minutes Maria Fernanda Laws NP Work Phone: [facility] Comment on above: Acute non-recurrent pansinusitis (Primary Dx); Acute cough; Wheeze; Cerumen debris on tympanic membrane of left ear Start: 10-04-2024 End: 10-04-2024 ambulatory MARÍA ANDERSON Not Available Start: 09-14-2024 End: 09-14-2024 ambulatory Marisela Shaffer Facility:[facility] Start: 09-07-2024 End: 09-07-2024 ambulatory Marislea Shaffer Facility:[facility] Start: 08-24-2024 End: 08-24-2024 ambulatory [facility] Start: 08-17-2024 End: 08-17-2024 ambulatory [facility] Start: 08-08-2024 End: 08-08-2024 ambulatory Julio C RAMIREZ Facility:[facility] Start: 08-08-2024 ambulatory Julio C RAMIREZ Facility :CD:[id number] Start: 08-04-2024 End: 08-04-2024 Clinisync Result Encounter Generic External Data Provider [facility] External [facility] Unsolicited Start: 08-04-2024 End: 08-04-2024 Clinisync Result Encounter Generic External Data Provider [facility] External Department Unsolicited Start: 08-03-2024 End: 08-03-2024 ambulatory [facility] Facility:[facility] Start: 07-20-2024 End: 07-20-2024 ambulatory [facility] Facility:[facility] Start: 07-13-2024 End: 07-13-2024 ambulatory [facility] Facility:[facility] Start: 07-05-2024 End: 07-05-2024 ambulatory [facility] Facility:[facility] Start: 06-15-2024 End: 06-15-2024 Emergency department patient visit María Anderson MD Work Phone: [facility] Work Phone: Start: 06-13-2024 End: 06-13-2024 Office outpatient visit 25 minutes Rosalinda Caro NP Work Phone: [facility] Comment on above: Mixed hyperlipidemia (CMS/HCC) (Primary Dx); Prediabetes; Coronary artery disease involving [place] coronary artery of [place] heart without angina pectoris (CMS/HCC); Chronic atrial fibrillation (HCC) (CMS/HCC); Congestive heart failure, NYHA class 2, unspecified congestive heart failure type (CMS/HCC); Gastroesophageal reflux disease without esophagitis; Anemia, unspecified type; Lumbosacral spondylosis without myelopathy; History of gout; Centrilobular emphysema (CMS/HCC); Medicare annual wellness visit, subsequent; ACP (advance care planning) Start: 06-13-2024 End: 06-13-2024 Patient encounter procedure Rosalinda Caro NP Work Phone: [facility] Start: 06-13-2024 End: 06-13-2024 ambulatory ROSALINDA R RISALITI Not Available Start: 05-18-2024 End: 05-18-2024 Office outpatient visit 10 minutes Bonita Kingsley MD Work Phone: [facility] Comment on above: Congestive heart andrew diallore, NYHA class 2, unspecified congestive heart failure type; BMI 24.0-24.9, adult; Former smoker Start: 05-18-2024 End: 05-18-2024 ambulatory [facility] Ambulatory Start: 05-11-2024 End: 05-11-2024 ambulatory [facility] Facility:[facility] Start: 05-06-2024 End: 05-06-2024 Patient encounter procedure María Anderson MD Work Phone: [facility] [place] Work Phone: Start: 05-06-2024 End: 05-06-2024 ambulatory María Anderson Facility:[facility] Start: 05-04-2024 End: 05-04-2024 ambulatory [facility] Facility:[facility] Start: 04-28-2024 End: 04-28-2024 ambulatory [facility] Facility:[facility] Start: 04-25-2024 End: 04-25-2024 Elida Blum MA Work Phone: [facility] Comment on above: Lumbosacral spondylo sis without myelopathy (Primary Dx); Skin tear of left elbow without complication, initial encounter; Left leg cellulitis Start: 04-22-2024 End: 04-22-2024 ambulatory Erasmo Bonner Facility:[facility] Start: 04-18-2024 End: 04-18-2024 Office outpatient visit 25 minutes Bonita Kingsley MD Work Phone: [facility] Comment on above: Nonrheumatic aortic valve stenosis; Status post transcatheter aortic valve replacement; Coronary artery disease, unspecified vessel or lesion type, unspecified whether angina present, unspecified whether [place] or transplanted heart; Pulmonary hypertension (Multi); Congestive heart failure, NYHA class 2, unspecified congestive heart failure type; Permanent atrial fibrillation (Multi); PVD (peripheral vascular disease) ([facility]); Former smoker; BMI 23.0-23.9, adult Start: 04-18-2024 End: 04-18-2024 ambulatory [facility] Ambulatory Start: 04-15-2024 End: 04-15-2024 ambulatory Erasmo Marilee Bonner Facility:[facility] Start: 04-13-2024 End: 04-13-[address] [facility] Start: 04-13-2024 End: 04-13-2024 Subsequent hospital visit by physician Nano Tamayo Echo/Vasc Room 2 [facility] Comment on above: Nonrheumatic aortic valve stenosis; Presence of prosthetic heart valve; Status post transcatheter aortic valve replacement Start: 04-08-2024 End: 04-08-2024 Telephone encounter Erasmo Bonner DPM FACFAS Work Phone: [facility] Start: 04-08-2024 End: 04-08-2024 ambulatory Erasmo Bonner Facility:[facility] Start: 04-06-2024 End: 04-06-2024 ambulatory MARÍA ANDERSON Not Available Start: 04-06-2024 End: 04-06-2024 Office outpatient visit 40 minutes Maria Fernanda Laws SOLE BUFFER Work Phone: [facility] Comment on above: Skin tear of left el bow without complication, initial encounter (Primary Dx); Left leg cellulitis; Left leg swelling; Blood blister Start: 03-30-2024 End: 03-30-2024 Bamboo flowsheet Petr Perla SOLE BUFFER Work Phone: [facility] Start: 03-30-2024 End: 03-30-2024 Bamboo flowsheet Petr Jose Perla SOLE BUFFER Work Phone: [facility] Start: 03-30-2024 End: 03-30-2024 Office outpatient visit 40 minutes Petr Perla SOLE BUFFER Work Phone: [facility] Comment on [...] 03-08-2024 ambulatory MD María Anderson Work Phone: [facility] Work Phone: Start: 03-08-2024 End: 03-08-2024 MD María Anderson Work Phone: [facility] [place] [facility] Work Phone: Start: 03-08-2024 End: 03-08-2024 MD María Anderson Work Phone: [facility] [place] [facility] Start: 03-08-2024 End: 03-08-2024 ambulatory MD María Anderson Work Phone: [facility] Work Phone: Start: 03-07-2024 End: 03-07-2024 ambulatory MARÍA ANDERSON Not Available Start: 03-07-2024 End: 03-07-2024 Office outpatient visit 25 minutes Maria Fernanda Laws NP Work Phone: [facility] Comment on above: Nontraumatic tear of right rotator cuff, unspecified tear extent (Primary Dx) Start: 02-26-2024 Evaluation and manag ement of inpatient MD María Anderson Work Phone: [facility] Work Phone: Start: 02-26-2024 End: 02-27-2024 observation encounter MD María Anderson Work Phone: [facility] Work Phone: Start: 02-26-2024 End: 02-27-2024 MD María Anderson Work Phone: [facility] [place] [facility] Work Phone: Start: 02-26-2024 End: 02-27-2024 ambulatory Bright Grantor Facility:[facility] Start: 02-17-2024 End: 02-17-2024 Transitional care manage srvc 7 day discharge Rosalinda Caro SOLE BUFFER Work Phone: [facility] Comment on above: TIA (transient ische lakeisha attack) (Primary Dx); Generalized muscle weakness; Chronic systolic congestive heart failure, NYHA class 2 (CMS/HCC) Start: 02-17-2024 End: 02-17-2024 ambulatory ROSALINDA CARO Not Available Start: 02-03-2024 End: 02-03-2024 ambulatory MD María Anderson Work Phone: [facility] Work Phone: Start: 02-03-2024 End: 02-03-2024 Patient encounter procedure MD María Anderson Work Phone: [facility] [place] [facility] Work Phone: Start: 02-03-2024 End: 02-03-2024 MD María Anderson Work Phone: [facility] [place] [facility] Work Phone: Start: 01-21-2024 End: 01-22-2024 ambulatory Minna Patricia Facility:[facility] Start: 01-21-2024 End: 01-22-2024 Evaluation and management of inpatient MD María Anderson Work Phone: [facility] [place] [facility] Work Phone: Start: 01-21-2024 End: 01-22-2024 observation encounter MD María Anderson Work Phone: [facility] Work Phone: Start: 01-21-2024 End: 01-22-2024 MD María Anderson Work Phone: [facility] [place] [facility] Work Phone: Start: 01-06-2024 End: 01-06-2024 Patient encounter procedure MD María Anderson Work Phone: [facility] [place] [facility] Work Phone: Start: 01-06-2024 End: 01-06-2024 MD María Anderson Work Phone: [facility] [place] [facility] Work Phone: Start: 01-06-2024 End: 01-06-2024 ambulatory MD María Anderson Work Phone: [facility] Work Phone: Start: 12-24-2023 Non-patient / Non-visit MD Omar Anderson Work Phone: [facility] and Spine Work Phone: Start: 12-24-2023 MD María Anderson Work Phone: [facility] Work Phone: Start: 12-23-2023 End: 12-29-2023 MD María Anderson Work Phone: [facility] [place] [facility] Work Phone: Start: 12-23-2023 End: 12-29-2023 Evaluation and management of inpatient MD María Anderson Work Phone: [facility] [place] [facility] Work Phone: Start: 12-22-2023 Non-patient / Non-visit MD Omar Anderson Work Phone: [facility] [place] [facility] Work Phone: Start: 12-22-2023 End: 12-23-2023 Evaluation and management of inpatient MD María Anderson Work Phone: [facility] Work Phone: Start: 12-22-2023 Non-patient / Non-visit MD Omar Anderson Work Phone: [facility] Work Phone: Start: 12-22-2023 End: 12-23-2023 MD María Anderson Work Phone: [facility] Work Phone: Start: 12-21-2023 Evaluation and manag ement of inpatient MD María Anderson Work Phone: [facility] Work Phone: Start: 12-21-2023 observation encounter MD Roney Anderson Work Phone: [facility] Work Phone: Start: 12-20-2023 End: 12-20-2023 ambulatory Rubio Olexa Facility:[facility] Start: 12-20-2023 End: 12-20-2023 Evaluation and management of inpatient MD María Anderson Work Phone: [facility] Work Phone: Start: 12-20-2023 End: 12-20-2023 observation encounter MD María Anderson Work Phone: [facility] Work Phone: Start: 12-20-2023 End: 12-20-2023 MD María Anderson Work Phone: [facility] Work Phone: Start: 09-29-2023 End: 09-29-2023 Office outpatient visit 25 minutes Bonita Kingsley MD Work Phone: [facility] Comment on above: Nonrheumatic aortic valve stenosis; Presence of prosthetic heart valve; Status post transcatheter aortic valve replacement; Permanent atrial fibrillation (Multi); Coronary artery disease, unspecified vessel or lesion type, unspecified whether angina present, unspecified whether [place] or transplanted heart; Congestive heart failure, NYHA class 2, unspecified congestive heart failure type (Multi); Pulmonary hypertension (Multi); Hypertension, unspecified type; Pure hypercholesterolemia; PVD (peripheral vascular disease) ([facility]); Type 2 diabetes mellitus without complication, unspecified whether buttermaker continuous churn insulin use ([facility]); Stage 2 chronic kidney disease; Former smoker Start: 06-04-2023 End: 06-06-2023 Evaluation and management of inpatient MD María Anderson Work Phone: [facility] [place] [address] Surgical Work Phone: Start: 05-05-2023 End: 05-05-2023 Admission to same day surgery center MD María Anderson Work Phone: [facility] [place] Start: 05-05-2023 End: 05-05-2023 ambulatory MD María Anderson Work Phone: [facility] Work Phone: Start: 04-13-2023 End: 04-13-2023 ambulatory MD María Anderson Work Phone: [facility] Work Phone: Start: 04-13-2023 End: 04-13-2023 Discharged Recurring MD María Anderson Work Phone: [facility] [place] Work Phone: Start: 04-03-2023 End: 04-03-2023 Subsequent hospital visit by physician Nano Tamayo Echo/Vasc Room 2 [facility] Comment on above: Nonrheumatic aortic valve stenosis; S/P aortic valve replacement Start: 04-02-2023 End: 04-02-2023 ambulatory MD María Anderson Work Phone: [facility] Work Phone: Start: 04-02-2023 End: 04-02-2023 Patient encounter procedure MD María Anderson Work Phone: [facility] [facility] Work Phone: Start: 04-02-2023 Registered Recurring MD María Anderson Work Phone: [facility] [place] Work Phone: Start: 03-30-2023 End: 03-30-2023 ambulatory Ema Blades Other [facility] Other Start: 03-30-2023 Office outpatient ne w 45 minutes Ema Blades [facility] Start: 02-24-2023 Office outpatient vi sit 25 minutes María Anderson Work Phone: -[facility] 250 DO Work Phone: Start: 02-24-[address] Trey Lutz Facility: Start: 01-19-2023 End: 01-19-2023 Emergency department patient visit DO Trey العلي Work Phone: [facility]-Emergency Room Work Phone: Start: 01-13-2023 End: 01-13-2023 ambulatory DO Trey العلي Work Phone: [facility] Work Phone: Start: 01-13-2023 End: 01-13-2023 Patient encounter procedure DO Trey العلي Work Phone: [facility]CT Scan [place] Work Phone: Start: 10-28-2022 End: 10-28-2022 Patient encounter procedure DO Trey العلي Work Phone: [facility] [place] Work Phone: Start: 10-13-2022 End: 11-12-2022 ambulatory ROME H FAWWAD Facility:H1 Start: 10-08-2022 End: 10-08-[address] TREY Ramos Facility:H1 Start: 09-15-2022 End: 10-10-2022 ambulatory ROME H FAWWAD Facility:H1 Start: 08-13-2022 End: 09-12-2022 ambulatory ROME H FAWWAD Facility:H1 Start: 07-16-2022 End: 08-13-2022 ambulatory ROME H FAWWAD Facility:H1 Start: 06-17-2022 End: 06-17-[address] TREY العلي Facility:H1 Start: 06-16-2022 End: 07-16-2022 ambulatory ROME H FAElizabethWAD Facility:H1 Start: 06-15-2022 End: 06-20-[address] TREY العلي Facility:H1 Start: 06-03-2022 End: 06-14-[address] TREY العلي Facility:H1 Start: 2022 End: 2022 ambulatory DO Trey العلي Work Phone: [facility] Work Phone: Start: 2022 End: 2022 Discharged Recurring DO Trey العلي Work Phone: [facility] [place] Work Phone: Start: 05-22-2022 End: 05-23-2022 ambulatory [...] 03-19-2022 ambulatory DO Trey العلي Work Phone: [facility] Work Phone: Start: 03-19-2022 End: 03-19-2022 Discharged Recurring DO Trey العلي Work Phone: [facility] [place] Start: 03-16-2022 End: 04-14-2022 ambulatory SHAIKH Fazal TREVINO Facility:H1 Start: 02-28-2022 Chart Update Trey juan Work Phone: [facility] 600 DO Work Phone: Start: 02-20-2022 Patient encounter procedure Trey العلي Work Phone: [facility] [address] [place] Work Phone: Start: 02-20-[address] Bonita Rocaahim Facility:[id number] Start: 02-13-2022 ambulatory SHAIKH Fazal TREVINO Facilit y:H1 Start: 02-13-2022 Patient encounter procedure Trey العلي Work Phone: [facility] 250 DO Work Phone: Start: 02-13-2022 End: 03-15-2022 ambulatory SHAIKH Fazal HEATOND Facility:H1 Start: 02-04-2022 Registered Recurring DO Che العلي Work Phone: [facility] [place] Start: 02-03-2022 End: 02-03-2022 Departed Referred DO Trey العلي Work Phone: [facility] [place] Start: 01-21-2022 ambulatory SHAIKH Fazal TREVINO Facilit y:H1 Start: 01-13-2022 End: 02-12-2022 ambulatory SHAIKH Fazal HEATOND Facility:H1 Start: 01-08-2022 End: 01-08-2022 Patient encounter procedure DO Trey العلي Work Phone: [facility]XRay [place] [facility] Start: 01-02-2022 End: 01-03-2022 ambulatory ROME H FAElizabethWAD Facility:H1 Start: 12-31-2021 End: 01-01-2022 ambulatory ROME H FAWWAD Facility:H1 Start: 12-13-2021 End: 01-10-2022 ambulatory ROME H FAWWAD Facility:H1 Start: 10-09-2021 End: 10-09-2021 ambulatory María Clarks[place] II Other [facility] Other Start: 10-09-2021 Office outpatient vi sit 15 minutes María Graham II [facility] [place] [facility] Start: 05-28-2021 Office outpatient vi sit 25 minutes Trey العلي Work Phone: [facility] 250 DO Work Phone: Start: 05-15-2021 End: 05-15-2021 ambulatory María [place] II Other [employer] Other Start: 05-15-2021 Office outpatient ne w 45 minutes María [place] II [facility] [place] [facility] Start: 03-19-2021 Patient encounter procedure Fani Johnston [facility] [place] [facility] Start: 03-01-2021 Patient encounter procedure Trey العلي Work Phone: [facility] [address] [place] Work Phone: Start: 02-13-2020 Patient encounter procedure Trey العلي [facility] [address] [place] Work Phone: Procedures Date Procedure Procedure Detail Performing Clinician Start: 01-09-2025 ALL BASIC METABOLIC PANEL Jayy Joshua SOLE BUFFER Work Phone: Start: 01-09-2025 ALL MAGNESIUM Jayy Joshua SOLE BUFFER Work Phone: Start: 10-04-2024 Ct lumbar spine w/o contrast [...] العلي Work Phone: Cardiovascular system repair Trey Da Silva Zohra Work Phone: Heart valve replacement Abrahan العلي Work Phone: Operation on bladder Trey Rekha YanZohra Work Phone: Operative procedure on hip J walter العلي Prostatectomy Trey Yanman Prosthetic arthropla sty of the hip Trey Da Silva Zohra Work Phone: Repair of musculoten dinous cuff of shoulder Treydavid Yanman Work Phone: Total replacement of hip Dominik triston العلي Work Phone: Comment on above: 12/18/20; Plan of Treatment Date Care Activity Detail Author Start: 12-19-2033 DTaP/Tdap/Td Vaccine s (2 - Td or Tdap) DTaP/Tdap/Td Vaccines (2 - Td or Tdap) [facility] Start: 07-26-2025 End: 07-26-2025 Patient encounter procedure 07/26/2025 9:20 AM EST Office Visit [facility] [address] [facility] [address] [place] [phone] Bonita Kingsley MD [address] [facility] [address] [place] [address] [facility] Start: 06-20-2025 End: 06-20-2025 Patient encounter procedure 06/20/2025 1:30 PM EST Office Visit [facility] [address] [place] [address] [facility] Start: 06-14-2025 Medicare Annual Well ness Visit Medicare Annual Wellness Visit (AWV) [facility] Start: 04-13-2025 Echocardiography Echocardiogram [facility] Start: 04-13-2025 End: 12-12-2026 Heart Transthoracic Transthoracic Echo Complete Echocardiography Routine Congestive heart failure, NYHA class 2, unspecified congestive heart failure type Chronic atrial fibrillation (Multi) Essential (primary) hypertension Nonrheumatic aortic valve stenosis Nonrheumatic mitral valve regurgitation Pulmonary hypertension (Multi) Expected: 04/13/2025 (Approximate), Expires: 12/12/2026 [facility] Service Area Work Phone: Comment on above: Expected: 04/13/2025 (Approximate), Expires: 12/12/2026 Start: 03-22-2025 End: 03-22-2025 Patient encounter procedure 03/22/2025 2:30 PM EDT Appointment [facility] [address] [facility] [address] [place] [phone] [facility] Start: 02-13-2025 Influenza vaccination [facility] Start: 02-01-2025 End: 02-01-2025 Patient encounter procedure 02/01/2025 3:30 PM EDT Office Visit [facility] [address] [place] [phone] Jayy Joshua, [place] [address] [place] [address] Chronic systolic congestive heart failure, NYHA class 2 (HCC) (Primary Dx) [facility] Comment on above: Chronic systolic con gestive heart failure, NYHA class 2 (HCC) (Primary Dx) Start: 01-21-2025 Lipid panel Lipid Panel [facility] Start: 01-16-2025 End: 01-16-2025 [facility] Start: 12-14-2024 End: 01-12-2025 Basic metabolic 1998 panel - Serum or Plasma Basic metabolic panel Lab Routine Chronic systolic congestive heart failure, NYHA class 2 (HCC) Expected: 12/14/2024 (Approximate), Expires: 01/12/2025 [facility] Work Phone: Comment on above: Expected: 12/14/2024 (Approximate), Expires: 01/12/2025 Start: 12-14-2024 End: 01-12-2025 Magnesium [Mass/volume] in Serum or Plasma Magnesium Lab Routine Chronic systolic congestive heart failure, NYHA class 2 (HCC) Hypomagnesemia Expected: 12/14/2024 (Approximate), Expires: 01/12/2025 [facility] Comment on above: Expected: 12/14/2024 (Approximate), Expires: 01/12/2025 Start: 12-13-2024 End: 12-13-2024 Patient encounter procedure [facility] Start: 12-12-2024 End: 06-13-2025 CBC W Auto Differential panel - Blood CBC and differential Lab Routine Anemia, unspecified type Expected: 12/12/2024, Expires: 06/13/2025 [facility] Comment on above: Expected: 12/12/2024 , Expires: 06/13/2025 Start: 12-12-2024 End: 06-13-2025 Comprehensive metabolic 2000 panel - Serum or Plasma Comprehensive metabolic panel Lab Routine Prediabetes Expected: 12/12/2024, Expires: 06/13/2025 [facility] Comment on above: Expected: 12/12/2024 , Expires: 06/13/2025 Start: 12-12-2024 End: 06-13-2025 Hemoglobin a1c with eag Hemoglobin a1c with eag Lab Routine Prediabetes Expected: 12/12/2024, Expires: 06/13/2025 [facility] Comment on above: Expected: 12/12/2024 , Expires: 06/13/2025 Start: 12-12-2024 End: 06-13-2025 Lipid 1996 panel - Serum or Plasma Lipid panel Lab Routine Mixed hyperlipidemia (CMS/HCC) Expected: 12/12/2024, Expires: 06/13/2025 [facility] Comment on above: Expected: 12/12/2024 , Expires: 06/13/2025 Start: 11-04-2024 End: 11-04-2024 Patient encounter procedure 11/04/2024 1:40 PM EDT Office Visit [place] [id number] [phone] Bonita Kingsley MD [address] [facility] [address] [place] [address] [facility] Start: 11-01-2024 Urine screening for protein Diabetes: Urine Protein Screening [facility] Start: 06-15-2024 Urine culture [facility] Start: 06-15-2024 [facility] Start: 06-15-2024 Bacteria identified in Blood by Culture Blood Culture [facility] Start: 06-15-2024 Bacteria identified in Urine by Culture Urine Culture [facility] Start: 05-18-2024 End: 05-18-2024 Patient encounter procedure 05/18/2024 9:30 AM EST Office Visit [facility] [address] [facility] [address] [place] [phone] Bonita Kingsley MD [address] [facility] [place] [address] [facility] Start: 05-15-2024 Medicare Annual Well ness Visit Medicare Annual Wellness Visit (AWV) [facility] Start: 05-11-2024 End: 05-11-2024 Patient encounter procedure 05/11/2024 9:45 AM EST Office Visit [facility] [address] [place] [phone] María Anderson MD [address] [place] [address] [facility] Start: 05-02-2024 End: 04-18-2025 Basic metabolic 2000 panel - Serum or Plasma Basic Metabolic Panel Lab Routine Congestive heart failure, NYHA class 2, unspecified congestive heart failure type Expected: 05/02/2024 (Approximate), Expires: 04/18/2025 [facility] Service Area Work Phone: Comment on above: Expected: 05/02/2024 (Approximate), Expires: 04/18/2025 Start: 04-18-2024 End: 04-18-2024 Patient encounter procedure 04/18/2024 2:00 PM EST Office Visit [facility] [address] [place] [address] Bonita Kignsley MD [address], [address] [place] [address] [facility] Start: 04-03-2024 Echocardiography Echocardiogram [facility] Start: 03-30-2024 End: 03-30-2025 MR Brain WO contrast MR brain wo contrast Imaging Routine TIA (transient ischemic attack) Expected: 03/30/2024 (Approximate), Expires: 03/30/2025 [facility] Work Phone: Comment on above: Expected: 03/30/2024 (Approximate), Expires: 03/30/2025 Start: 03-30-2024 End: 03-30-2025 MR Cervical spine WO contrast MR cervical spine wo contrast Imaging Routine Cervical spondylosis without myelopathy Hyperreflexia Expected: 03/30/2024 (Approximate), Expires: 03/30/2025 [facility] Comment on above: Expected: 03/30/2024 (Approximate), Expires: 03/30/2025 Start: 03-30-2024 End: 09-28-2025 US Heart Transthoracic Transthoracic Echo Complete Echocardiography Routine 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 Expected: 03/30/2024 (Approximate), Expires: 09/28/2025 [facility] Service Area Work Phone: Comment on above: Expected: 03/30/2024 (Approximate), Expires: 09/28/2025 Start: 03-30-2024 End: 03-30-2024 Patient encounter procedure [facility] Comment on above: Arrived Start: 03-22-2024 End: 03-22-2024 Patient encounter procedure 03/22/2024 1:30 PM EDT Office Visit [facility] [address] [place] [address] Frank Hook MD [address] [place] [address] [facility] Start: 03-16-2024 End: 03-16-2024 Patient encounter procedure 03/16/2024 10:20 AM EDT Office Visit [place] [address] [place] [address] Bonita Kingsley MD [address] [facility] [address] [place] [address] [facility] Start: 03-08-2024 X-ray of right knee [facility] Start: 03-08-2024 XR Knee - right 3 Views [facility] Start: 03-08-2024 Plain X-ray of right shoulder [facility] Start: 03-08-2024 XR Shoulder - right Views [facility] Start: 03-02-2024 End: 03-02-2024 Patient encounter procedure 03/02/2024 1:30 PM EDT Appointment [place] [id number] [facility] [address] [place] [address] [facility] Start: 03-01-2024 FUV, Provider: Bonita Kingsley, Status: Pen, Time: 11:50 AM FUV, Provider: Bonita Kingsley, Status: Pen, Time: 11:50 AM [facility] 250 DO Work Phone: Start: 03-01-2024 End: 03-01-2024 Patient encounter procedure 03/01/2024 11:50 AM EDT Office Visit [place] [id number] [facility] [address] [place] [address] Bonita Kingsley MD [address] [facility] [address], [address] [place], [place] [phone] [facility] Start: 02-27-2024 [facility] Start: 02-26-2024 [facility] Start: 02-26-2024 Hospital admission [facility] Start: 02-14-2024 COVID-19 Vaccine ( season) COVID-19 Vaccine () [facility] Start: 02-14-2024 COVID-19 Vaccine ( season) COVID-19 Vaccine () [facility] Start: 02-14-2024 Influenza vaccination Influenza Vacc ine (#1) [facility] Start: 02-03-2024 X-ray of right knee XR knee RT 3V - NOT FOR ER USE [facility] Start: 02-03-2024 XR Knee - right 3 Views [facility] Start: 02-02-2024 Hemoglobin A1c measurement Diabetes: Hemoglobin A1C [facility] Start: 01-22-2024 Referral to neurologist [facility] Start: 01-22-2024 End: 01-22-2024 [facility] Start: 01-21-2024 Consultation [facility] Start: 01-21-2024 Hospital admission [facility] Start: 01-21-2024 Physical therapy procedure [facility] Start: 01-21-2024 Referral to occupati onal therapist [facility] Start: 01-21-2024 Referral to speech a nd language therapy service [facility] Start: 01-21-2024 [facility] Start: 01-06-2024 X-ray of right knee XR knee RT 3V - NOT FOR ER USE [facility] Start: 01-06-2024 XR Knee - right 3 Views [facility] Start: 12-29-2023 [facility] Start: 12-23-2023 Hospital admission [facility] Start: 12-23-2023 Referral to clinical mental health technician [facility] Start: 12-23-2023 [facility] Start: 12-22-2023 Drainage of Right Kn ee Joint, Percutaneous Approach [facility] Start: 12-22-2023 Consultation [facility] Start: 12-22-2023 Referral to rehabilitation physician [facility] Start: 12-21-2023 Physical therapy procedure [facility] Start: 12-21-2023 Referral to occupati onal therapist [facility] Start: 12-21-2023 Referral to Personal Lines Account Manager [facility] Start: 12-21-2023 [facility] Start: 12-21-2023 Hospital admission [facility] Start: 12-20-2023 [facility] Start: 12-20-2023 Consultation [facility] Start: 12-20-2023 CT Knee - right WO contrast [facility] Start: 12-20-2023 CT of right knee CT knee RT wo con F [facility] Start: 12-20-2023 Hospital admission [facility] Start: 12-20-2023 Physical therapy procedure [facility] Start: 12-20-2023 Referral to occupati onal therapist [facility] Start: 12-20-2023 [facility] Start: 12-20-2023 Plain X-ray of left shoulder XR shoulder LT min 2V* [facility] Start: 12-20-2023 XR Shoulder - left Views [facility] Start: 12-20-2023 Plain X-ray of right femur XR femur RT 2V* [facility] Start: 12-20-2023 X-ray of right knee XR knee RT 4V* [facility] Start: 12-20-2023 XR Femur - right 2 Views [facility] Start: 12-20-2023 XR Knee - right 4 Views [facility] Start: 12-20-2023 Computed tomography of abdomen and pelvis with contrast CT abdomen pelvis w con [facility] Start: 12-20-2023 CT Abdomen and Pelvi s W contrast IV [facility] Start: 12-20-2023 CT cervical spine without contrast CT cervical spine wo con [facility] Start: 12-20-2023 CT Cervical spine WO contrast [facility] Start: 12-20-2023 CT Chest W contrast IV [facility] Start: 12-20-2023 CT of head without contrast CT head/brain wo con [facility] Start: 12-20-2023 CT of thorax with contrast CT chest w con [facility] Start: 12-20-2023 CT Unspecified body region WO contrast [facility] Start: 06-05-2023 Referral to cook boat [facility] Start: 06-05-2023 [facility] Start: 06-05-2023 [facility] Start: 06-05-2023 Referral to neurologist [facility] Start: 06-04-2023 Hospital admission [facility] Start: 05-05-2023 End: 05-05-2023 [facility] Start: 03-27-2023 ECHO, Provider: [facility] 01,[id number], Status: Pen, Time: 1:00 PM ECHO, Provider: [place] [facility] 01,[id number], Status: Pen, Time: 1:00 PM [facility] 250 DO Work Phone: Start: 02-24-2023 FUV, Provider: Bonita Kingsley, Status: Pen, Time: 9:20 AM FUV, Provider: Bonita Kingsley, Status: Pen, Time: 9:20 AM [facility] 250 DO Work Phone: Start: 02-13-2023 COVID-19 Vaccine ( season) COVID-19 Vaccine ( season) [facility] Start: 02-13-2023 Influenza vaccination Influenza Vacc ine (#1) [facility] Start: 01-19-2023 Bacteria identified in Blood by Culture [facility] Start: 03-05-2022 FUV, Provider: Bonita Kingsley, Status: Pen, Time: 11:10 AM FUV, Provider: Bonita Kingsley, Status: Pen, Time: 11:10 AM [facility] Work Phone: Start: 02-20-2022 ECHO, Provider: [facility] 01,[id number], Status: Pen, Time: 10:45 AM ECHO, Provider: [place] [facility] 01,[id number], Status: Pen, Time: 10:45 AM [facility] Work Phone: Start: 02-13-2022 FUV, Provider: Bonita Kingsley, Status: Pen, Time: 11:20 AM FUV, Provider: Bonita Kingsley, Status: Pen, Time: 11:20 AM [facility] Work Phone: Start: 02-04-2022 Registered Recurring Traumatic wound [facility] [place] Start: 02-03-2022 End: 02-03-2022 Departed Referred Departed Referred [facility] [place] Start: 05-23-2021 COVID-19 Vaccine (4 - Pfizer series) COVID-19 Vaccine (4 - Pfizer series) [facility] Start: 03-03-2021 Creatinine measurement Creatinine Le johnny [facility] Start: 03-03-2021 Potassium measurement Potassium Leve l [facility] Start: 02-28-2020 Basic metabolic 1998 panel - Serum or Plasma Basic Metabolic Panel WY-Uaqsmrbdse-XAT [facility] [address] [place] Work Phone: Start: 02-28-2020 CBC W Auto Different ial panel - Blood Complete Blood Count GM-Sujdsgblpc-SZA [facility] [address] [place] Work Phone: Start: 02-28-2020 PT/INR PT/INR MG-Cardiol ogy-CMC [facility] [place] Work Phone: Start: 02-27-2020 Assay of magnesium Magnesium, Serum YT-Ksoonpopmw-GKS [facility] [address] [place] Work Phone: Start: 02-27-2020 CBC W Auto Different ial panel - Blood Complete Blood Count YZ-Kufwinekum-FZI [facility] [address] [place] Work Phone: Start: 02-27-2020 PT/INR PT/INR MG-Cardiol ogy-CMC [facility] [place] Work Phone: Start: 02-27-2020 Urea, electrolytes a nd creatinine measurement Renal Function Panel OF-Dolvrkfrwl-BQP [facility] [place] Work Phone: Start: 11-02-2012 DTaP/Tdap/Td Vaccine s (1 - Tdap) DTaP/Tdap/Td Vaccines (1 - Tdap) [facility] Start: 2011 RSV High Risk: (Elde rly (60+) or Population) (1 - 1-dose 75+ series) RSV High Risk: (Elderly (60+) or Population) (1 - 1-dose 75+ series) [facility] Start: 1996 Hepatitis B Vaccines (1 of 3 - Risk 3-dose series) Hepatitis B Vaccines (1 of 3 - Risk 3-dose series) [facility] Start: 1986 Zoster Vaccines (1 of 2) Zoster Vacc winnie (1 of 2) [facility] Start: 1955 Hepatitis A Vaccines (1 of 2 - Risk 2-dose series) Hepatitis A Vaccines (1 of 2 - Risk 2-dose series) [facility] Start: 1955 Urine screening for protein Diabetes: Urine Protein Screening [facility] Start: 1946 Diabetic foot examination Diabetes: Foot Exam [facility] Start: 1946 Glaucoma screening Diabetes: R etinopathy Screening [facility] Start: 1936 Hemoglobin A1c measurement Diabetes: Hemoglobin A1C [facility] Start: 1936 Lipid panel Lipid Panel [facility] Start: 1936 Medicare Annual Well ness Visit Medicare Annual Wellness Visit (AWV) [facility] Start: 1936 Screening for osteoporosis Bone Density Scan [facility] Bilirubin measurement [facility] Body weight [facility] Calcium carbonate/To angel in [facility] Calcium hydrogen phosphate dihydrate/Total in [facility] Calcium oxalate monohydrate/Total in [facility] Calcium phosphate level [facility] Calculus analysis wi th calculus photography [Interpretation] in [facility] Calculus analysis, qualitative [facility] Calculus analysis, quantitative [facility] Calculus analysis, quantitative, infrared spectroscopy [facility] CBC W Auto Different ial panel - Blood CBC and differential Lab Routine Anemia, unspecified type Ordered: 06/13/2024 [facility] Comment on above: Ordered: 06/13/2024 Cellular material [Mass/mass] of Stone by Estimated [facility] Cholesterol [Mass/volume] in Serum or Plasma [facility] Cobalamin (Vitamin B 12) [Mass/volume] in Serum or Plasma Vitamin B12 Lab Routine Anemia, unspecified type Ordered: 06/13/2024 [facility] [employer] Work Phone: Comment on above: Ordered: 06/13/2024 Comprehensive metabo lic 2000 panel - Serum or Plasma Comprehensive metabolic panel Lab Routine Prediabetes Congestive heart failure, NYHA class 2, unspecified congestive heart failure type (CMS/HCC) Ordered: 06/13/2024 [facility] Comment on above: Ordered: 06/13/2024 Cystine measurement [facility] Determination of calculus chemical composition [facility] Evaluation procedure [facility] Ferritin [Mass/volum e] in Serum or Plasma Ferritin Lab Routine Anemia, unspecified type Ordered: 06/13/2024 [facility] Comment on above: Ordered: 06/13/2024 Hydroxyapatite [Ener gy Difference] in 24 hour Urine [facility] Iron and Iron bindin g capacity panel - Serum or Plasma Iron and TIBC Lab Routine Anemia, unspecified type Ordered: 06/13/2024 [facility] Comment on above: Ordered: 06/13/2024 Laboratory data interpretation [facility] Newberyite/Total in [facility] Patient Education [facility] Work Phone: Patient referral [facility] Work Phone: Respiratory pathogen s DNA and RNA panel - Nasopharynx by SHARRI with non-probe detection [facility] Specimen source subj ect [Type] [facility] Triamterene measurement [facility] Triple phosphate/Tot al in [facility] KY-Gbsaxdtymn-J [facility] [address] [place] Work Phone: [facility] NEGATED: Highlighted row has been ruled out! Planned Goals not documented EY-Lagywznxmr-AXI [facility] [address] [place] Work Phone: Immunizations Immunization Date Immunization Notes Care Provider Fa cilileon 12-20-2023 tetanus toxoid, redu luciano diphtheria toxoid, and acellular pertussis vaccine, adsorbed MD María Anderson Work Phone: [facility] 05-14-2023 Influenza, Seasonal, Quadrivalent, Adjuvanted Rosalinda Risaliti [employer] Work Phone: [facility] 05-14-2023 influenza virus vaccine, unspecified formulation Rosalinda Risaliti [employer] Work Phone: [facility] 05-14-2022 influenza, high dose seasonal, preservative-free María L [place] Work Phone: [facility] [address] DO Work Phone: 05-14-2022 influenza virus vaccine, unspecified formulation [address] Work Phone: 03-28-2021 Fluzone High-Dose Quadrivalent 0.7 ML Intramuscular Suspension Prefilled Syringe Trey العلي Work Phone: [facility] 250 DO Work Phone: 03-28-2021 Pfizer-BioNTech COVID-19 Vacc 30 MCG/0.3ML Intramuscular Suspension Trey العلي Work Phone: [facility] 250 DO Work Phone: 07-26-2020 Pfizer-BioNTech COVID-19 Vacc 30 MCG/0.3ML Intramuscular Suspension Trey العلي Work Phone: [facility] 07-05-2020 Pfizer-BioNTech COVID-19 Vacc 30 MCG/0.3ML Intramuscular Suspension Trey العلي Work Phone: [facility] 05-25-2020 influenza virus vaccine, unspecified formulation Trey العلي Work Phone: [facility] Work Phone: 05-25-2020 Seasonal trivalent influenza vaccine, adjuvanted, preservative free Trey العلي Work Phone: [facility] Dominick Jamaal [address] [place] [address] Work Phone: 05-04-2019 Seasonal trivalent influenza vaccine, adjuvanted, preservative free Trey Yanman Work Phone: YI-Cnxughzvph-UXD [facility] [address] [place] Work Phone: 03-03-2018 Seasonal trivalent influenza vaccine, adjuvanted, preservative free Trey Yanman Work Phone: YU-Xucxrujgzv-HAT [facility] [address] [place] Work Phone: 05-18-2017 pneumococcal conjuga te vaccine, 13 valent Treydavid Yanman Work Phone: WW-Sarzflgknb-MKO [facility] [address] [place] Work Phone: 05-01-2017 influenza, high dose seasonal, preservative-free Trey العلي Work Phone: [facility] 04-30-2017 influenza, high dose seasonal, preservative-free Fani Johnston Other [facility] [employer] Other 04-30-2017 influenza virus vaccine, unspecified formulation MD María Anderson Work Phone: [facility] 05-20-2016 influenza virus vaccine, unspecified formulation MD María Anderson Work Phone: [facility] 05-20-2016 influenza, high dose seasonal, preservative-free Fani Johnston Other [employer] [facility] [employer] Other 05-18-2015 seasonal influenza, intradermal, preservative free Trey العلي Work Phone: OR-Fgqsaadpqp-VLR [facility] [address] [place] Work Phone: 04-26-2014 influenza, high dose seasonal, preservative-free Fani Johnston Other [facility] [employer] Other 04-26-2014 influenza virus vaccine, unspecified formulation MD María Anderson Work Phone: [facility] 04-08-2013 seasonal influenza, intradermal, preservative free Rosalinda Caro [employer] Work Phone: [facility] 11-01-2012 tetanus and diphther ia toxoids, adsorbed, preservative free, for adult use (5 Lf of tetanus toxoid and 2 Lf of diphtheria toxoid) Fani Johnston Other [facility] 10-02-2010 pneumococcal polysaccharide vaccine, 23 valent Trey العلي Work Phone: [facility] influenza virus vaccine, unspecified formulation Trey العلي Work Phone: [facility] Work Phone: Comment on above: 2010Mar 20122012 pneumococcal polysaccharide vaccine, 23 valent Trey العلي Work Phone: [facility] Work Phone: Comment on above: 2010 Payers Date Payer Category Payer Self-pay [id number] 2021 Private Health Insurance [employer] [id number] 2021 Unknown 2001 Medicare [id number]. [id number]. [id number] 1959 Medicare [id number] 2.16.840.1.459997.19 1959 Unknown [id number] 2.16.840.1.693256.19 1936 Unknown [id number] 2.16.840.1.352565.3.579.2. 1068 1936 Unknown [id number] 2.16.840.1.383755.3.579.2. 593 1936 Unknown [id number] 2.16.840.1.253049.3.579.2. 593 1936 Unknown [id number] 2.16.840.1.473853.3.579.2. 593 1936 Unknown [id number] 2.16.840.1.308816.3.579.2. 593 1936 Unknown [id number] 2.16.840.1.579775.3.579.2. 593 1936 Unknown [id number] 2.16.840.1.549857.3.579.2. 593 1936 Unknown [id number] 2.16.840.1.498476.3.579.2. 593 1936 Unknown [id number] 2.16.840.1.308619.3.579.2. 593 1936 Unknown [id number] 2.16.840.1.206484.3.579.2. 593 1936 Unknown [id number] 2.16.840.1.399067.3.579.2. 593 1936 Unknown [id number] 2.16.840.1.409539.3.579.2. 593 1936 Unknown [id number] 2.16.840.1.340062.3.579.2. 593 1936 Unknown [id number] 2.16.840.1.407850.3.579.2. 593 1936 Unknown [id number] 2.16.840.1.996460.3.579.2. 593 1936 Unknown [id number] 2.16.840.1.994539.3.579.2. 593 1936 Unknown [id number] 2.16.840.1.205711.3.579.2. 593 1936 Unknown [id number] 2.16.840.1.733019.3.579.2. 593 1936 Unknown [id number] 2.16.840.1.900587.3.579.2. 593 1936 Unknown [id number] 2.16.840.1.990606.3.579.2. 593 1936 Unknown [id number] 2.16.840.1.201126.3.579.2. 593 1936 Unknown [id number] 2.16.840.1.284603.3.579.2. 593 1936 Unknown [id number] 2.16.840.1.218613.3.579.2. 593 1936 Unknown [id number] 2.16.840.1.077301.3.579.2. 593 1936 Unknown [id number] 2.16.840.1.483927.3.579.2. 356 1936 Unknown [id number] 2.16.840.1.218453.3.579.2. 1246 1936 Unknown [id number] 2.16.840.1.537800.3.579.2. 727 1936 Unknown [id number] 2.16.840.1.360513.3.579.2. 727 1936 Unknown [id number] 2.16.840.1.711551.3.579.2. 727 1936 Unknown [id number] 2.16.840.1.453068.3.579.2. 727 1936 Unknown [id number] 2.16.840.1.922846.3.579.2. 727 1936 Unknown [id number] 2.16.840.1.458654.3.579.2. 1244 1936 Unknown [id number] 2.16.840.1.345113.3.579.2. 1244 1936 Unknown [id number] 2.16.840.1.164707.3.579.2. 1244 1936 Unknown [id number] 2.16.840.1.430188.3.579.2. 1259 1936 Unknown [id number] 2.16.840.1.548229.3.579.2. 1259 1936 Unknown [id number] 2.16.840.1.137189.3.579.2. 1259 1936 Unknown [id number] 2.16.840.1.445672.3.579.2. 1259 1936 Unknown [id number] 2..840.1.399032.3.579.2. 1259 1936 Unknown [id number] 2.16.840.1.068326.3.579.2. 1259 1936 Unknown [id number] 2.16.840.1.488368.3.579.2. 125 1936 Unknown [id number] 2..840.1.373009.3.579.2. 1259 1936 Unknown [id number] 2..840.1.304477.3.579.2. 1259 1936 Unknown [id number] 2.16.840.1.313434.3.579.2. 1259 1936 Unknown [id number] 2.16.840.1.795862.3.579.2. 718 1936 Unknown [id number] 2.16.840.1.459612.3.579.2. 718 1936 Unknown [id number] 2.16.840.1.903360.3.579.2. 718 1936 Unknown [id number] 2.16.840.1.575913.3.579.2. 1936 Unknown [id number] 2.16.840.1.361858.3.579.2 1936 Unknown [id number] 2.16.840.1.125990.3.579.2 1936 Unknown [id number] 2.16.840.1.599027.3.579.2 1936 Unknown [id number] 2.16.840.1.003676.3.579.2 1936 Unknown [id number] 2.16.840.1.119782.3.579.2 1936 Unknown [id number] 2.16.840.1.796511.3.579. 1936 Unknown [id number] 2.16.840.1.197743.3.579.2 1936 Unknown [id number] 2.16.840.1.621447.3.579.2 1936 Unknown [id number] 2.16.840.1.235470.3.579.2 1936 Unknown [id number] 2.16.840.1.017162.3.579.2 1936 Unknown [id number] 2.16.840.1.663437.3.579.2 1936 Unknown [id number] 2.16.840.1.015342.3.579.2 1936 Unknown [id number] 2.16.840.1.098024.3.579.2 1936 Unknown [id number] 2.16.840.1.446893.3.579.2 1936 Unknown [id number] 2.16.840.1.307338.3.579.2. 718 1936 Unknown [id number] 2.16.840.1.628162.3.579.2. 8 1936 Unknown [id number] 2.16.840.1.044371.3.579.2. 8 1936 Unknown [id number] 2.16.840.1.500984.3.579.2. 1936 Unknown [id number] 2.16.840.1.808945.3.579.2. 1936 Unknown [id number] 2..840.1.983967.3.579.2. 1936 Unknown [id number] 2.840.1.569687.3.579.2. 1936 Unknown [id number] 2.840.1.380199.3.579.2 Medicare Medicare Rehab-IP Part A [id number] Unknown [id number] Unknown [id number] 2.16.840.1.516136.3.579.2. 531 Unknown [id number] 2.16.840.1.574091.3.579.2. 531 Unknown [id number] 2.16.840.1.076668.3.579.2. 531 Unknown [id number] 2.16.840.1.337067.3.579.2. 531 Unknown [id number] 2.16.840.1.263501.3.579.2. 531 Unknown [id number] 2.16.840.1.183498.3.579.2. 531 Unknown [id number] 2.16.840.1.643711.3.579.2. 531 Unknown [id number] 2.16.840.1.358124.3.579.2. 531 Unknown [id number] 2.16.840.1.759851.3.579.2. 531 Unknown [id number] 2.16.840.1.635016.3.579.2. 531 Social History Date Type Detail Facility Start: 09-29-2023 End: 02-01-2025 Former smoker Former smoker SR-Qxmmqnuvfz-YVY [facility] [address] [place] Work Phone: Comment on above: daily; QUIT 2000 1PPD; 2-3 coffees daily; Start: 09-29-2023 End: 02-01-2025 Sex Assigned At [employer] Other Start: 02-04-2022 End: 03-30-2024 Tobacco smoking status UTIS Ex-smoker (finding) [facility] Start: 1935 Sex Assigned At Male [facility] Start: 01-19-2023 End: 02-26-2024 Tobacco smoking status UTIS Never smoked tobacco (finding) [facility] Tobacco smoking status [facility] Tobacco smoking consumption unknown [facility] Work Phone: Start: 1935 Sex Assigned At Not on file [facility] Work Phone: Start: 03-24-2023 End: 05-18-2024 Exposure to SARS-CoV-2 (event) Not sure [facility] End: 06-15-2001 History of tobacco use Current smoker [facility] Work Phone: End: 06-15-2001 History of tobacco use Cigarette Smoker [facility] Work Phone: Start: 09-29-2023 Tobacco use and exposure Former smokeless tobacco user [facility] Work Phone: History of tobacco use Chews Tobacco [facility] Work Phone: Start: 09-29-2023 End: 02-01-2025 Alcoholic beverage intake Current drinker of alcohol (finding) [facility] Work Phone: Start: 01-07-2023 End: 03-30-2024 Tobacco use and exposure Smokeless tobacco non-user [facility] Start: 12-13-2022 Tobacco Comment Ex-heavy cigar ettes smoker (20-30/day) [facility] Start: 01-07-2023 Alcohol Comment .caffeine intake:Coffee, 3-4 cups per day. [facility] Start: 06-15-2024 Sex Male (finding) [facility] NEGATED: Highlighted row - - IF-Yhoqhmzfav-YPN [facility] [address] [place] Work Phone: Medical Equipment Procedure Code Equipment Code Equipment Origin al Text Equipment Identifier Dates Cystoscopy, with ureteral calculus manipulation and stent placement ()[id number] FDA Start: 05-05-2023 Arthroplasty, hip, total, anterior approach ()[id number] FDA Start: 12-18-2020 Arthroplasty, hip, total, anterior approach ()[id number] FDA Start: 12-18-2020 Arthroplasty, hip, total, anterior approach ()[id number] FDA Start: 12-18-2020 Arthroplasty, hip, total, anterior approach ()[id number] FDA Start: 12-18-2020 Arthroplasty, hip, total, anterior approach ()[id number] FDA Start: 12-18-2020 Arthroplasty, hip, total, anterior approach ()[id number] FDA Start: 12-18-2020 Goals Date Patient Goal Desired Activity /State Functional Status Date Assessment Result Facility 02-01-2025 Patient Health Questionnaire 2 item (PHQ-2) [Reported] [facility] 02-27-2024 Functional status Patient at Baseline [facility] Work Phone: 01-22-2024 Functional status Patient at Baseline [facility] Work Phone: 01-21-2024 Functional status Patient at Baseline [facility] Work Phone: 12-29-2023 Functional status Patient is Progressing Toward Baseline [facility] Work Phone: 12-23-2023 Functional status Patient is Progressing Toward Baseline [facility] Work Phone: 12-20-2023 Functional status Patient is Progressing Toward Baseline [facility] Work Phone: 06-06-2023 Functional status Patient at Baseline [facility] Work Phone: NEGATED: Highlighted row Functional performance Functional status health issues are not documented Disease GP-Jzvuezbojf-YPM [facility] [address] [place] Work Phone: Mental Status Date Assessment Result Facility 02-27-2024 Cognitive function Patient at Baseline [facility] Work Phone: 01-22-2024 Cognitive function Patient at Baseline [facility] Work Phone: 12-29-2023 Cognitive function Patient at Baseline [facility] Work Phone: 12-23-2023 Cognitive function Patient is Pr ogressing Toward Baseline [facility] Work Phone: 12-20-2023 Cognitive function Patient at Baseline [facility] Work Phone: 06-06-2023 Cognitive function Cognitive Sta tus Patient at Baseline [facility] Work Phone: NEGATED: Highlighted row Cognitive function [Interpretation] Cognitive status health issues are not documented Disease XD-Hidpovjwkj-UPQ [facility] [address] [place] Work Phone: Clinical Notes 03-02-2020 to 02-01-2025 Jayy Joshua NP - 02/01/2025 3:30 PM Indra Joshua NP - 12/13/2024 2:00 PM Lizeth Kingsley MD - 12/12/2024 3:50 PM EDTPatient InstructionsMaría Anderson MD - 11/17/2024 10:15 AM EDT Note Date & Type Note Facility 02-01-2025 History of Present illness Narrative Images from the original note were not included. Fani Chua is a 89 y.o. male presents with chief complaint of 1 month follow up (Pt is being seen today for his 1 month follow up and managment of his chronic conditions. Pt was rx'ed Zoloft at last office visit. Pt states that its been going good. He would like to talk about different medications like Tramadol that he could take since he cannot mix the two. States that the Zoloft dose is adequate for right now but might need dose increases as his condition worsens./) HPI: History of Present Illness The patient is an 89-year-old male who presents today for a 1-month follow-up regarding depression. Depression He reports that his current medication regimen, which includes an antidepressant, has been effective in managing his symptoms. He also mentions that two of his daughters are on the same dosage of this medication. - Alleviating Factors: Current medication regimen, including an antidepressant. - Severity: Effective in managing symptoms. Sinus Congestion He has been experiencing sinus congestion for nearly a year, which has evolved from a light to a heavy form. This congestion is most severe in the mornings, causing difficulty in breathing and a perceived decrease in oxygen intake. He does not have a pulse oximeter at home to monitor his oxygen levels. The congestion is present upon waking and persists throughout the day, with intermittent relief depending on his eating, drinking, and activity levels. He expresses concern about the potential impact of his smoking history and emphysema on his current symptoms. Despite these concerns, he reports that his home care nurse has consistently found his chest to be clear. His last chest x-ray was conducted a year ago. He does not experience shortness of breath at night or use a CPAP machine. He has tried Claritin for a month without relief and has not yet attempted a sinus rinse. - Onset: Nearly a year ago. - Location: Sinus area. - Duration: Persistent throughout the day. - Character: Evolved from light to heavy congestion. - Alleviating/Aggravating Factors: Intermittent relief depending on eating, drinking, and activity levels; tried Claritin for a month without relief. - Timing: Most severe in the mornings. - Severity: Causes difficulty in breathing and perceived decrease in oxygen intake. Swelling in Right Leg He has been experiencing swelling in his right leg for the past week, which is less severe than previous episodes and tends to resolve overnight. He consumes a high-sodium diet, including the consumption of three eggs with added salt each morning. - Onset: Past week. - Location: Right leg. - Duration: Resolves overnight. - Character: Swelling. - Severity: Less severe than previous episodes. Difficulty Falling Asleep He also reports difficulty falling asleep, often taking 2 to 3 hours before he can do so. He is considering the use of melatonin to aid his sleep. He does not report any symptoms of sleep apnea or snoring but notes that his 's snoring may be contributing to his sleep difficulties. - Onset: Not specified. - Duration: Takes 2 to 3 hours to fall asleep. - Character: Difficulty falling asleep. - Alleviating Factors: Considering the use of melatonin. - Severity: Significant enough to consider sleep aids. Back and Leg Issues He reports that his back and leg issues have worsened, making walking more difficult and painful. He has another epidural scheduled in 2 days. - Onset: Not specified. - Location: Back and legs. - Duration: Not specified. - Character: Worsened issues making walking difficult and painful. - Timing: Another epidural scheduled in 2 days. - Severity: Significant enough to impact walking. FAMILY HISTORY The patient mentions that two daughters take the same amount of medication for depression. I have reviewed and reconciled the history and medication list with the patient today. HISTORIES: PAST MEDICAL HISTORY: Past Medical History: Diagnosis Date A-fib (HCC) AVN (avascular necrosis of bone) (HCC) Bladder infection CHF (congestive heart failure), NYHA class II ([facility]) 12/05/2022 COVID-19 vaccine administered pfizer Diverticulitis Diverticulosis 2011 Diverticulosis of colon without hemorrhage Eczema Kidney stone Labyrinthitis 11/2008 Menstrual bleeding problem Neuroma right foot Prostate cancer (HCC) SCC (squamous cell carcinoma) 2013 chest Toe pain 1996 right hallux Type 2 diabetes mellitus (HCC) Ureteral calculus, left Visual impairment SURGICAL HISTORY: Past Surgical History: Procedure Laterality Date CARDIOVERSION 2007 COLONOSCOPY 2011 COLONOSCOPY 05/27/2018 CYSTOSCOPY 01/2009 CYSTOSCOPY cystoscopy ureteroscopy,left ureteral calculus stricture CYSTOSCOPY 05/05/2023 NEUROMA SURGERY Right AR TOTAL HIP ARTHROPLASTY Left 03/29/2009 PROSTATECTOMY 1997 [...] Drug use: Never Depression: Not at risk (02/01/2025) PHQ-2 PHQ-2 Score: 0 FAMILY HISTORY: Family [...] Daily atorvastatin (LIPITOR) 40 mg, Oral, Daily fluticasone (Flonase) 50 MCG/ACT nasal spray 2 sprays, Daily RT losartan (COZAAR) 25 mg, Oral, Daily Magnesium Oxide, Elemental, 400 MG tablet 1 tablet, Oral, Daily Melatonin 10 MG capsule 1 tablet, Nightly Multiple Vitamins-Minerals (PRESERVISION AREDS 2 PO) Take by mouth Nutritional Supplements (ADULT NUTRITIONAL SUPPLEMENT PO) 1 tablet, Oral, Daily, ([employer] Cognitive Supplement) pantoprazole (PROTONIX) 40 mg, Oral, Daily before breakfast sertraline (ZOLOFT) 25 mg, Oral, Daily warfarin (COUMADIN) 10 mg, Oral, Nightly Zeaxanthin powder 1 capsule, Daily RT ALLERGIES: Allergies Allergen Reactions Amoxicillin Swelling Welts, facial swelling Welts, facial swelling Welts, facial swelling Bacitracin Neomycin Penicillins Other, Rash, Swelling and Angioedema Polymyxin B Wound Dressing Adhesive Rash Other Reaction(s): Rash PHYSICAL EXAM: Visit Vitals BP 124/74 Pulse 56 Ht 5' 9 Wt 160 lb 1.6 oz SpO2 95% BMI 23.64 kg/m Smoking Status Former BSA 1.88 m BP Readings from Last 3 Encounters: 02/01/25 124/74 12/13/24 120/70 11/17/24 118/64 Wt Readings from Last 3 Encounters: 02/01/25 160 lb 1.6 oz 12/13/24 160 lb 11/17/24 155 lb Physical Exam Constitutional: Appearance: Normal appearance. HENT: Nose: Congestion present. Neck: Vascular: No carotid bruit. Cardiovascular: Rate and Rhythm: Regular rhythm. Heart sounds: Normal heart sounds. Pulmonary: Breath sounds: Normal breath sounds. Abdominal: General: Bowel sounds are normal. Palpations: Abdomen is soft. Musculoskeletal: Right lower leg: No edema. Left lower leg: No edema. Skin: General: Skin is warm and dry. Neurological: Mental Status: He is alert and oriented to person, place, and time. Psychiatric: Mood and Affect: Mood normal. Thought Content: Thought content normal. Judgment: Judgment normal. Results Imaging - Chest x-ray: 01/2024, Normal ASSESSMENT AND PLAN: Assessment & Plan 1. Chronic systolic congestive heart failure, NYHA class 2 (HCC) (Primary) - Limit fluid intake to 1.5 quarts per day. - Reduce sodium intake to <1800 mg daily. - Use Mrs. Cooper as a salt substitute. 2. Throat congestion/Chronic sinus congestion - Oxygen saturation level at 95%. - Purchase a pulse oximeter to monitor oxygen levels at home, aiming for readings above 90%. - Nasal saline irrigation twice daily and gargling with normal saline. - Mucinex for chest congestion. - Half a Benadryl caplet at bedtime to help with mucus and sleep. 3. Moderate major depression (HCC) - Continue current medication regimen. Zoloft 25 mg once a day. 4. Insomnia: Chronic. - Melatonin recommended as it does not cause drowsiness the next day. - Half a Benadryl caplet at bedtime to help with sleep and mucus. Dr. Anderson was present in office suite today and is supervising patient care and available for consult. I'm following his plan of care for the above problems. Previous notes and plan were reviewed and followed. documented in this encounter [facility] 12-13-2024 History of Present illness Narrative Images from the original note were not included. Fani Chua is a 89 y.o. male presents with chief complaint of 6 Month Follow Up of Chronic Conditions and Anxiety HPI: History of Present Illness The patient is an 89-year-old male who presents today for a routine 6-month follow-up. Persistent Cough He reports feeling better than usual but has been experiencing a persistent cough. This cough is accompanied by sneezing, head drainage, and saliva production, followed by a small amount of phlegm in his throat. He does not report any fever, chills, or sweats. He has a long history of smoking and was previously treated with antibiotics for lung and sinus infections. He does not use an inhaler and does not feel the need for one. He was given a sample of Trelegy last month and another type of inhaler by a nurse, but he did not feel the need to use them. - Onset: Persistent - Location: Throat - Character: Cough accompanied by sneezing, head drainage, saliva production, and a small amount of phlegm - Alleviating/Aggravating Factors: Does not use an inhaler, does not feel the need for one - Severity: No fever, chills, or sweats Lightheadedness He also experiences frequent lightheadedness, which he attributes to either an inner ear issue or dehydration from sun exposure. A week ago, he was taken to the ER due to low blood pressure. His medication was changed from enalapril to losartan, which he believes may be causing his current symptoms. He did not take losartan today. He was informed that he has a low ejection fraction of 40% and is scheduled for a repeat test in 03/2025. He is curious if this could be contributing to his chest congestion and fatigue. He has been drinking a lot of water to stay hydrated and usually has a beer with dinner. - Onset: Frequent - Character: Lightheadedness - Alleviating/Aggravating Factors: Drinking a lot of water to stay hydrated, usually has a beer with dinner - Timing: Medication changed from enalapril to losartan a week ago, did not take losartan today - Severity: Taken to the ER due to low blood pressure, low ejection fraction of 40% Stress and Anxiety He has been under significant stress caring for his , who has Alzheimer's disease. He wakes up feeling anxious every morning. His xcigoelx-mq-dgz, who has a master's in psychology, has been helping him manage his anxiety through breathing exercises and other techniques. He has never taken medication for depression or anxiety before and is interested in starting on a low dose. - Onset: Wakes up feeling anxious every morning - Character: Anxiety - Alleviating Factors: Breathing exercises and other techniques - Severity: Significant stress Blood Blisters on Legs He has been experiencing large blood blisters on his legs, which occasionally bleed. He is currently taking warfarin, 7.5 mg for 5 days and 5 mg for 2 days, and is aiming to keep his INR between 2 and 3. He is also taking cephalexin for a wound and has a few doses left. He was informed in the ER that he has low magnesium levels and was given IV magnesium. He is interested in trying RediMind, a supplement he read about online. - Onset: Currently - Location: Legs - Character: Large blood blisters, occasionally bleed - Alleviating Factors: Taking warfarin, aiming to keep INR between 2 and 3, taking cephalexin for a wound - Severity: Informed in the ER about low magnesium levels, given IV magnesium History of Bladder and Prostate Cancer He has a history of bladder cancer diagnosed at age 52 and was treated at [facility] with BCG. He had prostate cancer 25 years ago and had a stone removed 2 years ago. He has spinal stenosis and arthritis and has received [address] Garcia, which have not improved his condition. PAST SURGICAL HISTORY: - Bladder cancer treatment with BCG - Prostate cancer treatment - Stone removal (2 years ago) SOCIAL HISTORY He has a long history of smoking. FAMILY HISTORY There is a lot of mental illness in the family. I have reviewed and reconciled the history and medication list with the patient today. HISTORIES: PAST MEDICAL HISTORY: Past Medical History: Diagnosis Date A-fib (HCC) AVN (avascular necrosis of bone) (HCC) Bladder infection CHF (congestive heart failure), NYHA class II (HCC) 12/05/2022 COVID-19 vaccine administered pfizer Diverticulitis Diverticulosis 2011 Diverticulosis of colon without hemorrhage Eczema Kidney stone Labyrinthitis 11/2008 Menstrual bleeding problem Neuroma right foot Prostate cancer (HCC) SCC (squamous cell carcinoma) 2013 chest Toe pain 1995 right hallux Type 2 diabetes mellitus (HCC) Ureteral calculus, left Visual impairment SURGICAL HISTORY: Past Surgical History: Procedure Laterality Date CARDIOVERSION 2007 COLONOSCOPY 2011 COLONOSCOPY 05/27/2018 CYSTOSCOPY 01/2009 CYSTOSCOPY cystoscopy ureteroscopy,left ureteral calculus stricture CYSTOSCOPY 05/05/2023 NEUROMA SURGERY Right AR TOTAL HIP ARTHROPLASTY Left 03/29/2009 PROSTATECTOMY 1997 [...] Types: Cigarettes Quit date: 06/15/2001 Years since quittin.5 Smokeless tobacco: Never Tobacco comments: Ex-heavy cigarettes [...] Daily atorvastatin (LIPITOR) 40 mg, Oral, Daily cephalexin (KEFLEX) 500 mg, Every 12 hours fluticasone (Flonase) 50 MCG/ACT nasal spray 2 sprays, Daily RT losartan (COZAAR) 25 mg, Oral, Daily Magnesium Oxide, Elemental, 400 MG tablet 1 tablet, Oral, Daily Multiple Vitamins-Minerals (PRESERVISION AREDS 2 PO) Take by mouth pantoprazole (PROTONIX) 40 mg, Oral, Daily before breakfast predniSONE (Deltasone) 20 MG tablet Take two tablets once a day for 5 days sertraline (ZOLOFT) 25 mg, Oral, Daily traMADol (ULTRAM) 50 mg, Oral, Every 8 hours PRN warfarin (COUMADIN) 10 mg, Oral, Nightly Zeaxanthin powder 1 capsule, Daily RT ALLERGIES: Allergies Allergen Reactions Amoxicillin Swelling Welts, facial swelling Welts, facial swelling Welts, facial swelling Bacitracin Neomycin Penicillins Other, Rash, Swelling and Angioedema Polymyxin B Wound Dressing Adhesive Rash Other Reaction(s): Rash PHYSICAL EXAM: Visit Vitals BP 130/80 Pulse 80 Wt 160 lb SpO2 95% BMI 23.63 kg/m Smoking Status Former BSA 1.88 m BP Readings from Last 3 Encounters: 12/13/24 130/80 11/17/24 118/64 10/04/24 120/80 Wt Readings from Last 3 Encounters: 12/13/24 160 lb 11/17/24 155 lb 06/13/24 163 lb Physical Exam Constitutional: Appearance: Normal appearance. HENT: Head: Normocephalic. Mouth/Throat: Mouth: Mucous membranes are moist. Pharynx: Oropharynx is clear. Eyes: Extraocular Movements: Extraocular movements intact. Neck: Thyroid: No thyromegaly. Vascular: No carotid bruit. Cardiovascular: Rate and Rhythm: Normal rate and regular rhythm. Heart sounds: Normal heart sounds. No murmur heard. Pulmonary: Effort: No respiratory distress. Breath sounds: Normal breath sounds. Abdominal: General: Bowel sounds are normal. Palpations: Abdomen is soft. There is no mass. Tenderness: There is no abdominal tenderness. Musculoskeletal: General: No swelling. Cervical back: Neck supple. No tenderness. Left lower leg: Edema present. Lymphadenopathy: Cervical: No cervical adenopathy. Skin: General: Skin is warm and dry. Comments: Blood blisters of right lower inner leg Neurological: Mental Status: He is oriented to person, place, and time. Psychiatric: Mood and Affect: Mood normal. Thought Content: Thought content normal. Judgment: Judgment normal. Results Labs - Complete Blood Count (CBC): 10/2024, Anemia detected. Platelets were slightly low at 140. - Kidney Function Test: 10/2024, Kidney function was normal. - Electrolyte Panel: 10/2024, Sodium and potassium levels were good. - Liver Function Test: 10/2024, Liver function was normal. - Total Protein: 10/2024, Total protein was 7.2. - Iron Studies: 10/2024, Iron saturation was slightly low, but binding capacity and iron levels were okay. - Vitamin B12: 10/2024, B12 was 510. - Folate: 10/2024, Folate was 9.0. - Magnesium: 11/2024, Magnesium was low at 1.3. Imaging - Chest X-ray: 11/2024, Normal ASSESSMENT AND PLAN: Assessment & Plan 1.2. 1. Chronic systolic congestive heart failure, NYHA class 2 (HCC) (Primary) - Basic metabolic panel; Future - Magnesium; Future Advised to limit fluid intake to no more than 1.5 quarts per day and sodium intake to 1800 mg per day. - Recommended use of support stockings. - Should monitor weight regularly to ensure no water weight gain. - Discussed the importance of managing fluid and sodium intake due to lower ejection fraction (40%). 2. Coronary artery disease involving [place] coronary artery of [place] heart without angina pectoris -follows with NO -EF 40% Elevate legs, wear support stockings-AMPARO hose or LEONARD wraps. Daily weights. 3. Mixed hyperlipidemia -well controlled 4. Chronic atrial fibrillation (HCC) -taking coumadin 5. Centrilobular emphysema (HCC) -no on inhalers 6. Prediabetes -stable 7. History of bladder cancer -diagnosed when he was in his 50's 8. History of gout -denies any flare-ups 9. Hypomagnesemia - Magnesium Oxide, Elemental, 400 MG tablet; Take 1 tablet by mouth Daily Dispense: 90 tablet; Refill: 2 - Magnesium; Future Hypomagnesemia: Magnesium oxide prescribed. - Recent blood work indicated magnesium level of 1.3 (low normal is 1.8). - Medication sent to pharmacy. - Reviewed ER visit where i.v. magnesium was administered. 10. Mixed anxiety and depressive disorder - sertraline (Zoloft) 25 MG tablet; Take 1 tablet (25 mg) by mouth Daily Dispense: 30 tablet; Refill: 2 Anxiety and depression: Prescription for Zoloft 25 mg has been issued. - Start with half a tablet for a week before increasing to a full tablet. - Medication sent to pharmacy. - Advised against concurrent use of tramadol and Zoloft. - Counseling provided on the use of Zoloft for anxiety and depression. 11. Degeneration of intervertebral disc of lumbar region with discogenic back pain and lower extremity pain -has had injections with Dr. Berger 12. Blood blisters: Currently taking warfarin 7.5 mg for 5 days and 5 mg for 2 days to maintain INR between 2 and 3. - Advised to avoid supplements containing ginkgo, such as RediMind, due to the risk of bleeding. - Reviewed history of blood blisters and recent wound care. 13. Sinusitis: Symptoms suggest sinusitis rather than an infection, likely due to dehydration. - Antibiotics are not necessary at this time. - Irzj-nsn-igtwcqs Claritin can be used as needed. - Nasal saline irrigations are recommended to alleviate morning drainage. - A bottle of NeilMed salt water solution will be provided. Dr. Anderson was present in office suite today and is supervising patient care and available for consult. I'm following his plan of care for the above problems. Previous notes and plan were reviewed and followed. documented in this encounter [facility] 12-12-2024 History of Present illness Narrative Chief Complaint Patient presents with Follow-up 6 month follow up for congestive heart failure Subjective Fani Chua is a 89 y.o. male HPI Patient is in the office for follow-up for TAVR that was placed in 2019. He does have LV systolic dysfunction and ejection fraction around 40%. Last time he was seen in the office he was started on enalapril 2.5 mg daily. The patient apparently after that developed dry cough and significant upper airway congestion and after prolonged observation it was felt the enalapril was the culprit medicine which was discontinued. The patient felt better and back to baseline, however after starting losartan 25 mg daily a week later part of his symptoms recurred. He also complains of fatigue which is likely caused by LV systolic dysfunction. Has no orthopnea PND or lower extremity edema. He has been compliant with Coumadin therapy and has had no major bleeding but ecchymosis. He had lab data with CBC and basic metabolic profile done through his PCP from recent testing which I reviewed and shared with him. His examination today was essentially normal his blood pressure is very soft at this time. Assessment/recommendations: 1-history of severe aortic stenosis status post TAVR 2019 at [facility]. Follow-up echocardiogram March 2024 revealed normal valve function.. Annual echocardiogram is scheduled 2-moderate pulmonary hypertension, echocardiogram March 2024 measured RVSP at 49 mmHg, no edema is noted, due to soft blood pressure in the absence of any volume overload noted therapy with diuretic will be initiated 3-permanent atrial fibrillation on chronic Coumadin therapy with no bleeding complications, heart rate is under control. No thromboembolic events 4- mild to moderate left ventricular systolic dysfunction, ejection fraction 40% by echo March 2024. The patient has very soft blood pressure, did not tolerate LEONARD inhibitor due to cough and currently on ARB at small dose. He is intolerant to beta-ca therapy due to hypotension and bradycardia. Will continue small dose of ARB, no need for diuretic therapy. 5-high risk medication with anticoagulation with no complications so far. CBC has been on target [id number]-[id number] mitral regurgitation based on echocardiogram March 2024. Due to soft blood pressure in the medical therapy will be initiated since patient is asymptomatic, echocardiogram is scheduled in March 2025 7-moderate LV systolic dysfunction, ejection fraction 40% by echocardiogram March 2024. Patient is currently taking only 25 mg daily of losartan and remains with low blood pressure and still have respiratory issues could be intolerance to ARB. Will reduce the dose down to 12.5 mg. 8-high risk medication with warfarin without active bleeding followed in the Coumadin clinic. Will continue to monitor CBC ROS Intermittent cough with tickle in the throat, diffuse rash on the lower extremities Generalized fatigue Vitals: 12/12/24 1544 BP: (!) 98/46 BP Location: Right arm Patient Position: Sitting Pulse: 72 Weight: 72.6 kg (160 lb) Height: 1.727 m (5' 8 ) Objective Physical Exam Constitutional: Appearance: Normal appearance. HENT: Nose: Nose normal. Neck: Vascular: No carotid bruit. Cardiovascular: Rate and Rhythm: Normal rate. Rhythm irregularly irregular. Pulses: Normal pulses. Heart sounds: Normal heart [...] content normal. Judgment: Judgment normal. Allergies Penicillins, Beta-blockers (beta-adrenergic blocking agts), Neomycin, Bacitracin, and Polymyxin b Current Medications Current Outpatient Medications Medication Instructions aspirin 81 mg, Daily atorvastatin (LIPITOR) 40 mg, oral, Daily RT cephalexin (Keflex) 500 mg capsule 1 capsule, Every 12 hours scheduled (0630,1830) fluticasone (Flonase) 50 mcg/actuation nasal spray 2 sprays, Daily losartan (COZAAR) 12.5 mg, oral, Daily, decrease og-hlr-EO-vit D-fmxdml-mzzuabz (PreserVision AREDS 2 Plus MV) 200 mcg-15 mcg- 5 mg-1 mg capsule 1 capsule, Daily pantoprazole (PROTONIX) 40 mg traMADol (ULTRAM) 50-100 mg, Every 6 hours PRN warfarin (COUMADIN) 10 mg Assessment/Plan 1. Congestive heart failure, NYHA class 2, unspecified congestive heart failure type Follow Up In Cardiology Follow Up In Cardiology losartan (Cozaar) 25 mg tablet Transthoracic Echo Complete 2. Coronary artery disease involving [place] coronary artery of [place] heart without angina pectoris 3. Chronic atrial fibrillation (Multi) Transthoracic Echo Complete 4. residential (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 5. Essential (primary) hypertension losartan (Cozaar) 25 mg tablet Transthoracic Echo Complete 6. Mixed hyperlipidemia 7. Nonrheumatic aortic valve stenosis Transthoracic Echo Complete 8. Status post transcatheter aortic valve replacement 9. Nonrheumatic mitral valve regurgitation Transthoracic Echo Complete 10. PVD (peripheral vascular disease) 11. Stage 2 chronic kidney disease 12. Venous insufficiency (chronic) (peripheral) 13. Pulmonary hypertension (Multi) Transthoracic Echo Complete 14. Former smoker 15. BMI 24.0-24.9, adult Scribe Attestation By signing my name below, I, Diamond Bassett LPNibroderick attest that this documentation has been prepared [...] discussion and plan. documented in this encounter [facility] Work Phone: 12-12-2024 Instructions Kathya Dorman LPN - 12/12/2024 3:50 PM EDT Please bring all medicines, vitamins, and herbal supplements with you when you come to the office. Prescriptions will not be filled unless you are compliant with your follow up appointments or have a follow up appointment scheduled as per instruction of your physician. Refills should be requested at the time of your visit. documented in this encounter [facility] Work Phone: 11-17-2024 History of Present illness Narrative Images [...] significantly overnight. He received wound care from [facility] on Wednesdays and [facility] Nurse on Mondays and Fridays until 2 to 3 weeks ago. - Onset: Bruising and bleeding noted in late June 2024. - Location: Arms, legs, and body. - Character: Large purple spot, significant bleeding overnight. - Alleviating/Aggravating Factors: Coumadin therapy; wound care from [facility] and [facility] Nurse. - Timing: Monthly INR checks; wound [...] HISTORY: Past Medical History: Diagnosis Date A-fib ([facility]) AVN (avascular necrosis of bone) ([facility]) Bladder infection COVID-19 vaccine administered pfizer Diverticulitis Diverticulosis 2011 Diverticulosis of colon without hemorrhage Eczema Kidney stone Labyrinthitis 11/2008 Menstrual bleeding problem Neuroma right foot Prostate cancer ([facility]) SCC (squamous cell carcinoma) 2013 chest Toe pain 1996 right hallux Type 2 diabetes mellitus ([facility]) Ureteral calculus, left Visual impairment SURGICAL HISTORY: Past Surgical History: Procedure Laterality Date CARDIOVERSION 2007 COLONOSCOPY 2011 COLONOSCOPY 05/27/2018 CYSTOSCOPY 01/2009 CYSTOSCOPY cystoscopy ureteroscopy,left ureteral calculus stricture CYSTOSCOPY 05/05/2023 NEUROMA SURGERY Right AR TOTAL HIP ARTHROPLASTY Left 03/29/2009 PROSTATECTOMY 1997 [...] to the risk of exacerbating nosebleeds. Instead, qlki-mtl-ditfqrk nasal saline spray is advised, with 2 [...] thinners and slightly low platelet count. - Xwdi-qgu-xeakyyw nasal saline spray is recommended, with 2 [...] systolic congestive heart failure, NYHA class 2 ([facility]) - Currently on enalapril for heart function but may need a medication adjustment due to potential side effects. - A note will be sent to Dr. Kingsley to consider switching to an alternative medication like losartan. - Monitor for any new or worsening symptoms and report them promptly. Follow-up - Follow-up appointment with Dr. Kingsley on December 12. documented in this encounter [facility] 11-08-2024 Note Oncology Progress No te [...] an 89-year-old gentleman with history of A-fib, [place] class II congestive heart failure, avascular necrosis [...] percentage was high 15.2% and therefore patient grade foreman for Evaluation with increased percentage of monocytes. [...] cannot be evaluated C the comments below: [place] and lambda staining cannot be interpreted due [...] Musculoskeletal: No de (more content not included)... [facility] 10-17-2024 Note Oncology Progress No te Chief Complaint New pt here for anemia thrombocytopenia, no specific questions or concerns. History of Present Illness Fani is an 89-year-old gentleman with history of A-fib, Dickinson class II congestive heart failure, avascular necrosis [...] percentage was high 15.2% and therefore patient grade foreman for Evaluation with increased percentage of monocytes. [...] like MPN, fac (more content not included)... [facility] 10-04-2024 History of Present illness Narrative Images from the original note were not included. Subjective Patient ID: Fani Chua (: 1935) is a 89 y.o. male who presents for Sinus Problem. HPI History of Present Illness The patient presents for evaluation of a sinus infection. He has been under the care of a home health nurse from [facility] since June 2024 for a wound. During [...] CHF (congestive heart failure), NYHA class II ([facility]) Chronic atrial fibrillation (HCC) ([facility]) Degeneration of lumbar intervertebral disc Centrilobular emphysema ([facility]/HCC) Gastroesophageal reflux disease without esophagitis PVD (peripheral vascular disease) ([facility]) Tobacco abuse Venous insufficiency (chronic) (peripheral) Malignant neoplasm of prostate ([facility]) Lumbosacral spondylosis without myelopathy Laryngopharyngeal reflux Diverticulosis, sigmoid Carcinoma in situ of bladder Coronary artery disease involving [place] coronary artery of [place] heart without angina pectoris ([facility]) Anemia S/P aortic valve replacement History of gout Mixed hyperlipidemia ([facility]) Prediabetes Pulmonary hypertension ([facility]) Chronic venous hypertension (idiopathic) with inflammation [...] 5-day course of prednisone. Prescriptions sent to [facility] in [place]. Advised to take doxycycline with food and [...] Fernanda Laws NP documented in this encounter [facility] 06-15-2024 Radiology Diagnostic study note [facility] Main [place] [address] [place] [address] CT Scan Report Signed Patient: Fani Chua MR#: [id number] : 1935 Acct:[id number] Age/Sex: 89 / M ADM Date: 5 Loc: ER Room: Type: [facility] ER Attending Dr: Copies to: [...] Trey Murray M.D.06/15/2024 2:39 PM Dictation Location: [place] [address] Transcribed By: [facility] 06/15/24 1439 Dictated By: Trey Murray DO 06/15/24 1433 Signed By: 06/15/24 1439 [facility] 06-13-2024 History of Present illness Narrative Images [...] have a living will or power of staff attorney. 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 Hearing Screening: Yes, concerned about hearing loss Cognitive Screening Three Word Registration: Banana, Teller, Chair Clock Drawing: Normal Clock - 2 [...] bleeding problem Neuroma right foot Prostate cancer ([facility]/HCC) 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 Toe pain 1996 right hallux Type 2 diabetes mellitus ([facility]/HCC) Ureteral calculus, left Visual impairment SURGICAL HISTORY: Past Surgical History: Procedure Laterality Date CARDIOVERSION 2007 COLONOSCOPY 2011 COLONOSCOPY 05/27/2018 CYSTOSCOPY 01/2009 CYSTOSCOPY cystoscopy ureteroscopy,left ureteral calculus stricture CYSTOSCOPY 05/05/2023 NEUROMA SURGERY Right AR TOTAL HIP ARTHROPLASTY Left 03/29/2009 PROSTATECTOMY 1996 [...] with eag 3. Coronary artery disease involving [place] coronary artery of [place] heart without angina pectoris (CMS/HCC) Doing well. [...] tramadol 50 mg will be sent to [facility]. He is advised to inform us if [...] the above issues. documented in this encounter [facility] 05-18-2024 History of Present illness Narrative [...] mg) by mouth. Take as directed by [facility], Disp: , Rfl: Assessment/Plan 1. Congestive heart failure, NYHA class 2, unspecified congestive heart failure type Follow Up In Cardiology 2. BMI 24.0-24.9, adult 3. Former smoker Scribe Attestation By signing my name below, I, Gricelda Pascal LPN , Diamondibroderick attest that this documentation has been prepared [...] discussion and plan. documented in this encounter [facility] Work Phone: 05-18-2024 Instructions Gricelda Sena LPN [...] May follow up documented in this encounter [facility] Work Phone: 04-25-2024 History of Present illness Narrative Pt calls [facility] fill 04/06. Rx pending. documented in this encounter [facility] 04-18-2024 History of Present illness Narrative [...] aortic stenosis status post TAVR 2019 at [facility]. Follow-up echocardiogram March 2024 revealed normal valve [...] with anticoagulation with no complications so far. [id number]-bsbvepvi mitral regurgitation based on echocardiogram March 2024. [...] mg) by mouth. Take as directed by [facility], Disp: , Rfl: enalapril (Vasotec) 2.5 mg tablet, Take 1 tablet (2.5 mg) by mouth 2 times a day., Disp: 180 tablet, Rfl: 3 Assessment/Plan 1. Nonrheumatic aortic valve stenosis Follow Up In Cardiology 2. Status post transcatheter aortic valve replacement 3. Coronary artery disease, unspecified vessel or lesion type, unspecified whether angina present, unspecified whether [place] or transplanted heart 4. Pulmonary hypertension (Multi) 5. Congestive heart failure, NYHA class 2, unspecified congestive heart failure type enalapril (Vasotec) 2.5 mg tablet Follow Up In Cardiology Basic Metabolic Panel Follow Up In Cardiology Basic Metabolic Panel 6. Permanent atrial fibrillation (Multi) 7. PVD (peripheral vascular disease) ([facility]-HCC) 8. Former smoker 9. BMI 23.0-23.9, adult Scribe Attestation By signing my name below, Gricelda Coleman LPN Scribe attest that this documentation has been [...] discussion and plan. documented in this encounter [facility] Work Phone: 04-18-2024 Instructions Gricelda Sena LPN [...] month 6 months documented in this encounter [facility] Work Phone: 04-08-2024 Telephone encounter Note Wound pain [facility] 04-08-2024 Miscellaneous Notes Wound pain documented in this encounter [facility] 04-06-2024 History of Present illness Narrative Images from the original note were not included. Subjective Patient ID: Fani Chua (: 1935) is a 88 y.o. male who presents for Wound Check and Referral. Wound Check Patient presents today for F for a referral for HH. 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) Chronic atrial fibrillation (HCC) ([facility]) Degeneration of lumbar intervertebral disc Emphysema of lung ([facility]/HCC) Gastroesophageal reflux disease without esophagitis PVD (peripheral vascular disease) ([facility]/HCC) Tobacco abuse Venous insufficiency (chronic) (peripheral) Malignant neoplasm of prostate ([facility]/HCC) Lumbosacral spondylosis without myelopathy Laryngopharyngeal reflux Diverticulosis, sigmoid Carcinoma in situ of bladder CAD (coronary artery disease) ([facility]/HCC) Anemia S/P aortic valve replacement History of gout Mixed hyperlipidemia ([facility]/HCC) Prediabetes Pulmonary hypertension ([facility]/HCC) Chronic venous hypertension (idiopathic) with inflammation of [...] assistance after a injury while using his analytical strategist. He states he did this on Thursday [...] the antibiotic use. I did call both [facility] wound and Nery tejeda. Nery is able to see him this week on Thursday at 11:30. I did confirm this was ok with the patient and he agreed. I did give him the directions for the appt. I will send referral to [facility] for home wound care. I advised that [...] of the patient encounter. -Follow up for [facility] wound care Thursday05/09/2024. Maria Fernanda Laws NP Visit time exceeded 1 hour. documented in this encounter [facility] 03-22-2024 History of Present illness Narrative Lesions: Location: [...] any new/changing lesions documented in this encounter [facility] 03-07-2024 History of Present illness Narrative [...] up. He has previously consulted with an animal control specialist for hip issues and another one in [place] for a hip replacement in October 2023. [...] CHF (congestive heart failure), NYHA class II ([facility]) Chronic atrial fibrillation (HCC) ([facility]) Degeneration of lumbar intervertebral disc Emphysema of lung ([facility]) Gastroesophageal reflux disease without esophagitis PVD (peripheral vascular disease) ([facility]) Tobacco abuse Venous insufficiency (chronic) (peripheral) Malignant neoplasm of prostate ([facility]) Lumbosacral spondylosis without myelopathy Laryngopharyngeal reflux Diverticulosis, sigmoid Carcinoma in situ of bladder CAD (coronary artery disease) ([facility]) Anemia S/P aortic valve replacement History of gout Mixed hyperlipidemia ([facility]) Prediabetes Pulmonary hypertension ([facility]) Chronic venous hypertension (idiopathic) with inflammation [...] has an appt with Dr. Garcia at [facility] 03/08/2024 at 11:15. Problem List Items [...] Fernanda Laws NP documented in this encounter [facility] 02-26-2024 History and physi mary note Note Date/Time February 26, 2024 4:16pm [facility] [address] [place] [address] Hospitalist H&P Signed Patient: Fani Chua MR#: [id number] : 1935 Acct:[id number] Age/Sex: 88 / M Adm Date: 4 Loc: 3T Room: [address] [place] [address] Type: ADM IN Attending Dr: Bright Lopez MD Copies to: MD María Abrams MD~ HPI DATE OF EXAMINATION: 02/26/24 CHIEF COMPLAINT: Dizziness [...] that which is noted above in HPI [facility] Medical History (Updated 02/26/24 @ 16:41 by [...] Verified 02/26/24 14:05) Rash bacitracin [From Neosporin (rzn-gxj-bqoqp)] Allergy (Unknown, Verified 02/26/24 14:05) itch and rash, rash neomycin [From Neosporin (lmi-fgw-zqohk)] Allergy (Unknown, Verified 02/26/24 14:05) itch and rash, rash Penicillins Allergy (Unknown, Verified 02/26/24 14:05) Anaphylaxis polymyxin B [From Neosporin (prl-upx-jygsb)] Allergy (Unknown, Verified 02/25/2414:05) Rash and itch, [...] days #45 tabs 12/23/23 [Rx Confirmed 02/26/24] kpcrlrfg-vardxqbr-hortf acid 500 mcg-lutein 5 mg-zeaxanth 1 mg [...] % (Auto) 11.1 % (.) 02/26/24 10:06 [place] % (Auto) 15.6 % (.) 02/26/24 10:06 Eos % (Auto) 0.8 % (.) 02/26/24 10:06 Baso % (Auto) 0.6 % (.) 02/26/24 10:06 Nucleat RBC Rel Count 0.1 /100 WBC (0-0.5) 02/26/24 10:06 Neut # (Auto) 3.4 x10E3/uL (1.8-7.7) 02/26/24 10:06 Lymph # (Auto) 0.5 x10E3/uL (1.00-4.8) L 02/26/24 10:06 [place] # (Auto) 0.7 x10E3/uL (0.0-0.8) 02/26/24 10:06 [...] pH 5.0 (5.0-9.0) 02/26/24 11:26 Ur Specific [place] 1.017 (1.001-1.030) 02/26/24 11:26 Urine Protein Negative [...] signed by Bright Lopez MD> 02/26/24 1641 [facility] Work Phone: 1(762) 176-619509-04-2024 History of Present illness Narrative* Rosalinda Caro NP - 02/17/2024 3:00 PM EDT Images from the original note were not included. Fani Chua is a 88 y.o. male presents with chief complaint of Post Hospital HPI: HPI Patient was admitted to [facility] 01/25/2024 with TIA. He has [facility] HH Nursing, PT, OT twice weekly. He [...] 2023 and had a follow-up appointment in [place]. He has been receiving home health care, [...] Flowsheet Row Patient Outreach from 01/26/2024 in [facility] with [facility] Information ED, Hospital or Mc[facility] Facility Discharge? Hospital [DX: TIA] Patient has been contacted within two business days of discharge Yes [unable to reach patient x 2, no return call] Discharge [facility] Discharge Date 01/23/24 Engagement Medications Appointments Self Management Patient Teaching Wrap Up HISTORIES: PAST MEDICAL HISTORY: Past Medical History: Diagnosis Date A-fib ([facility]) AVN (avascular necrosis of bone) (CMS/[facility]) Bladder infection COVID-19 vaccine administered pfizer [...] calculus stricture CYSTOSCOPY 05/05/2023 NEUROMA SURGERY Right AR TOTAL HIP ARTHROPLASTY Left 03/29/2009 PROSTATECTOMY 1996 [...] any problems or concerns. [facility] Consult note Author Buck Glover [facility] January 22, 2024 1:50pm Note Date/Time January 22, 2024 10: 52am [facility] [address] [place] [address] Neurology Consult Note Signed Patient: Fani Chua MR#: [id number] : 1935 Acct:[id number] Age/Sex: 88 / M Adm Date: 4 Loc: 3T Room: [address] [place] [address] Type: ADM INOo Attending Dr: Minna Patricia MD Copies to: DO Minna Doe MD Robert L Hill, MD~ HPI Consult Date: 01/22/24 Director Of Training: Buck Glover DO [facility] Medical History Right patella fracture History of [...] Verified 01/21/24 15:33) Rash bacitracin [From Neosporin (rvb-lnz-idqqr)] Allergy (Unknown, Verified 01/21/24 15:33) itch and rash, rash neomycin [From Neosporin (suj-kgu-vuoos)] Allergy (Unknown, Verified 01/21/24 15:33) itch and rash, rash Penicillins Allergy (Unknown, Verified 01/21/24 15:33) Anaphylaxis polymyxin B [From Neosporin (dfu-lzd-qwwhi)] Allergy (Unknown, Verified 01/20/2415:33) Rash and itch, [...] Ramirez Jr., D.O.01/21/2024 3:58 PM Dictation Location: [place] [address] 01/21/24 15:19 IMPRESSION: No acute intracranial pathology. No evidence of critical stenosis, aneurysmal dilatation, dissection or occlusion. Impression dictated by: Henry Ramirez Jr., D.O.01/21/2024 3:47 PM Dictation Location: [facility]--15 Therapy Recommendations Therapy Recommendations: ST Recommendations Liquid [...] do not see how an MRI would oil changer. He is asymptomatic and already effectively medically maximized. 4. Outpatient neurology follow-up; okay for discharge from my standpoint Documented By: Buck Glover DO 01/22/24 1048 Signed By: <Electronically signed by Buck Glover DO> 01/22/24 1350 [facility] Work Phone: 1(352) 605-876008-09-2024 Hospital Discharge instructionsAmbulatory Orders* Initiate Home Health [...] management and education -See speech therapy recs [facility] Work Phone: 1([phone]) 733-950608-08-2024 History and physical note Author Minna Patricia [facility] January 21, 2024 8:29pm Note Date/Time January 21, 2024 6:5 7pm [facility] [address] [place] [address] Hospitalist H&P Signed Patient: Fani Chua MR#: [id number] : 1935 Acct:[id number] Age/Sex: 88 / M Adm Date: 4 Loc: Room: 0J4780-8 Type: ADM INOo Attending Dr: Donnell Amos [...] Verified 01/21/24 15:33) Rash bacitracin [From Neosporin (iom-zjz-xdegm)] Allergy (Unknown, Verified 01/21/24 15:33) itch and rash, rash neomycin [From Neosporin (zlk-ojd-tztkh)] Allergy (Unknown, Verified 01/21/24 15:33) itch and rash, rash Penicillins Allergy (Unknown, Verified 01/21/24 15:33) Anaphylaxis polymyxin B [From Neosporin (xiq-klc-uxkcx)] Allergy (Unknown, Verified 01/20/2415:33) Rash and itch, [...] 15:14 Lymph % (Auto) N/A 01/21/24 15:14 [place] % (Auto) N/A 01/21/24 15:14 Eos % (Auto) N/A 01/21/24 15:14 Baso % (Auto) N/A 01/21/24 15:14 Nucleat RBC Rel Count N/A 01/21/24 15:14 Neut # (Auto) N/A 01/21/24 15:14 Lymph # (Auto) N/A 01/21/24 15:14 [place] # (Auto) N/A 01/21/24 15:14 Eos # [...] <Electronically signed by Minna Patricia MD> 01/21/242028 [facility] Work Phone: 1(262) 772-349507-16-2024 Progress note Author Henry Clark [facility] December 29, 2023 12:24pm Note Date/Time December 28, 2023 12:4 2pm [facility] [address] [place] [address] Physiatry(Rehab) Progress Note Signed Patient: Fani Chua MR#: [id number] : 1935 Acct:[id number] Age/Sex: 88 / M Adm Date: 4 Loc: Room: [address] [place] [address] Type: ADM IN Attending Dr: Henry Clark [...] Verified 12/21/23 20:12) Rash bacitracin [From Neosporin (anj-hzz-eihqi)] Allergy (Unknown, Verified 12/21/23 20:12) itch and rash, rash neomycin [From Neosporin (abq-cof-ppayn)] Allergy (Unknown, Verified 12/21/23 20:12) itch and rash, rash Penicillins Allergy (Unknown, Verified 12/21/23 20:12) Anaphylaxis polymyxin B [From Neosporin (ldw-akp-xterk)] Allergy (Unknown, Verified 12/21/2419:12) Rash and itch, [...] mg 12/23/23 15:35 Bisacodyl 10 Mg Supp.Rect AR 12/22/24 15:34 DAILY PRN Constipation Docusate Sodium 100 mg 12/23/23 15:35 12/24/23 05:43 Docusate 100 Mg Capsule PO 12/22/24 15:34 100 mg BID PRN Administration Constipation Docusate Sodium 283 mg 12/23/23 15:35 Docusate Enema 283 Mg/5 Ml Enema AR 12/22/24 15:34 DAILY PRN Constipation Lactulose 30 [...] I spent 26 minutes for services, including ygbz-hk-llls encounter with the patient, discussion of the case, plan of care, and exam; and zrlxfhk-et-tsby activities, such as reviewing pertinent databases computer consultant documentation, recent therapynotes, laboratory and radiology studies, and discussion of case with care team including physician, nursing, pillowcase cleaner, and therapists. More than 50 % of time was spent on patient/family counseling or coordination ofcare. <Statement entered by Henry Clark MD - 12/29/23 12:22> This documentation has been reviewed and approved. Documented By: Cherelle Schmidt APRN 12/28/23 1 236 Signed By: <Electronically signed by BENJI Schmidt> 12/28/23 1242 <Electronically signed by Henry Clark MD> 12/29/23 5931 [facility] Work Phone: 1(447) 988-582607-12-2024 Consult note Author Ashley Merritt [facility] December 25, 2023 7:46am Note Date/Time December 24, 2023 1:42 pm [facility] [address] [place] [address] Hospitalist Consult Note Signed Patient: Fani Chua MR#: [id number] : 1935 Acct:[id number] Age/Sex: 88 / M Adm Date: 4 Loc: Room: 9B3105-6 Type: ADM IN Attending Dr: Henry Clark [...] negative unless noted in the HPI below [facility] Medical History (Updated 12/24/23 @ 13:41 by [...] Brother(s) COPD (chronic obstructive pulmonary disease) [facility] Relation: Brother(s) Father 37 yrs Heart disease Mother Heart disease 67 yrs Sibling Cancer [facility] Problem: Diagnosed with Cancer Social History Smoking Status: Former smoker Tobacco Type: cigarettes Substance Use Type: None Substance Abuse Comment: one beer daily Meds Medications and Allergies Allergies amoxicillin Allergy (Severe, Verified 12/21/23 20:12) Swelling of Lip/Tongue/Throat adhesive Allergy (Unknown, Verified 12/21/23 20:12) Rash bacitracin [From Neosporin (qqy-hyx-cnmhs)] Allergy (Unknown, Verified 12/21/23 20:12) itch and rash, rash neomycin [From Neosporin (rib-ika-msmuf)] Allergy (Unknown, Verified 12/21/23 20:12) itch and rash, rash Penicillins Allergy (Unknown, Verified 12/21/23 20:12) Anaphylaxis polymyxin B [From Neosporin (vyu-gcf-uvzsk)] Allergy (Unknown, Verified 12/21/2419:12) Rash and itch, [...] Dose Route Start Last Admin Trade Name Christine PRN Reason Stop Dose Admin Acetaminophen 500 [...] 12/24/23 09:00 12/24/23 08:07 Aspirin 81 Mg Tablet.Dr PO 12/23/24 08:59 81 mg DAILY WILLA Administration Atorvastatin Calcium 40 mg 12/23/23 22:00 12/23/23 21:35 Atorvastatin 40 Mg Tablet PO 12/22/24 21:59 40 mg QHS WILLA Administration Bisacodyl 10 mg 12/23/23 15:35 Bisacodyl 10 Mg Supp.Rect AR 12/22/24 15:34 DAILY PRN Constipation Docusate Sodium 100 mg 12/23/23 15:35 12/24/23 05:43 Docusate 100 Mg Capsule PO 12/22/24 15:34 100 mg BID PRN Administration Constipation Docusate Sodium 283 mg 12/23/23 15:35 Docusate Enema 283 Mg/5 Ml Enema AR 12/22/24 15:34 DAILY PRN Constipation Lactulose 30 [...] Tablet. PO 12/22/24 21:59 40 mg QHS WILAL Administration Polyethylene Glycol 17 gm 12/24/23 09:00 [...] % (Auto) 66.9, Lymph % (Auto) 15.2, [place] % (Auto) 14.8, Eos % (Auto) 2.6, Baso % (Auto) 0.5, Nucleat RBC Rel Count 0.2, Neut # (Auto) 4.4, Lymph # (Auto) 1.0, [place] # (Auto) 1.0 H, Eos # (Auto) [...] signed by Ashley Merritt MD> 12/25/23 0746 [facility] Work Phone: 1(417) 329-588007-11-2024 History and physical note Author Henry Clark [facility] December 24, 2023 12:19pm Note Date/Time December 24, 2023 9:55 am [facility] [address] [place] [address] Physiatry (Rehab) H&P Signed Patient: Fani Chua MR#: [id number] : 1935 Acct:[id number] Age/Sex: 88 / M Adm Date: 4 Loc: Room: [address] [place] [address] Type: ADM IN Attending Dr: Henry Clark [...] immobilizer donning. Needed some encouragement with therapy. [facility] Medical History Patella fracture right.12/20/23 Hyperlipidemia Emphysema [...] Verified 12/21/23 20:12) Rash bacitracin [From Neosporin (dmf-fmg-uxojv)] Allergy (Unknown, Verified 12/21/23 20:12) itch and rash, rash neomycin [From Neosporin (urk-fwf-colrh)] Allergy (Unknown, Verified 12/21/23 20:12) itch and rash, rash Penicillins Allergy (Unknown, Verified 12/21/23 20:12) Anaphylaxis polymyxin B [From Neosporin (skj-vyu-emrii)] Allergy (Unknown, Verified 12/21/2419:12) Rash and itch, [...] 81 Mg Tablet.) 81 mg PO DAILY WILLA Stop: 12/23/24 08:59 Last Admin: 12/24/23 08:07 Dose: 81 mg Atorvastatin Calcium (Atorvastatin 40 Mg Tablet) 40 mg PO QHS WILLA Stop: 12/22/24 21:59 Last Admin: 12/23/23 21:35 Dose: 40 mg Bisacodyl (Bisacodyl 10 Mg Supp.Rect) 10 mg AR DAILY PRN PRN Reason: Constipation Stop: 12/22/24 15:34 Docusate Sodium (Docusate 100 Mg Capsule) 100 mg PO BID PRN PRN Reason: Constipation Stop: 12/22/24 15:34 Last Admin: 12/24/23 05:43 Dose: 100 mg Docusate Sodium (Docusate Enema 283 Mg/5 Ml Enema) 283 mg AR DAILY PRN PRN Reason: Constipation Stop: 12/22/24 15:34 Lactulose (Lactulose 20 Gm/30 Ml Udc) 30 gm PO DAILY PRN PRN Reason: Constipation Stop: 12/22/24 15:34 Magnesium Oxide (Magnesium Oxide 400 Mg Tablet) 400 mg PO DAILY WILLA Stop: 12/23/24 08:59 Last Admin: 12/24/23 08:07 Dose: 400 mg Oxycodone HCl (Oxycodone Ir 5 Mg Tablet) 5 mg PO Q4H PRN PRN Reason: Severe Pain Last Admin: 12/24/23 05:43 Dose: 5 mg Pantoprazole Sodium (Pantoprazole 40 Mg Tablet.Dr) 40 mg PO QHS WILLA Stop: 12/22/24 21:59 Last Admin: 12/23/23 21:35 Dose: 40 mg Polyethylene Glycol (Polyethylene Glycol 3350 17 Gm Powd.Pack) 17 gm PO DAILY WILLA Stop: 12/23/24 08:59 Last Admin: 12/24/23 08:07 [...] % (Auto) 66.9 Lymph % (Auto) 15.2 [place] % (Auto) 14.8 Eos % (Auto) 2.6 Baso % (Auto) 0.5 Nucleat RBC Rel Count 0.2 Neut # (Auto) 4.4 Lymph # (Auto) 1.0 [place] # (Auto) 1.0 H Eos # (Auto) [...] 14 days Expected Discharge Destination: Home Rehabilitation [facility]: 08.9 Primary Diagnosis: Right patella fracture; hemarthrosis [...] 24 hour daily monitoring and intervention from Battalion Fire Chief as well as other consulting physicians including internal medicine as well as 24 hour daily asphalt paving supervisor nursing - for medical safe / optimal [...] Allied health note review, nursing note review, databases computer consultant note review, discussion with nursing and case management, and more than 50% of my time was spent on counseling and coordination of care, time spent 70 minutes Patient was personally seen by me, Dr. Clark, on the day of encounter, within 24hours of rehab admission, reviewed the history and the relevant portions of the chart, including current orders, allied health and databases computer consultant notes, labs/imaging and performed orellana elements of exam and I formulated the plan of care and facilitated the medical decision making. Documented By: Henry Clark MD 12/24/23 0955 Signed By: <Electronically signed by Henry Clark MD> 12/24/23 1218 [facility] Work Phone: 1(877) 866-950807-09-2024 Consult note Author Elver Cifuentes [facility] December 22, 2023 2:35pm Note Date/Time December 22, 2023 9:25a m [facility] [address] [place] [address] Physiatry (Rehab) Consult Note Signed Patient: Fani Chua MR#: [id number] : 1935 Acct:[id number] Age/Sex: 88 / M Adm Date: 4 Loc: 4N Room: 0K6993-3 Type: ADM INOo Attending Dr: Ashley Merritt [...] negative unless noted below or in HPI [facility] Medical History Patella fracture right.12/20/23 Hyperlipidemia Emphysema [...] Verified 12/21/23 20:12) Rash bacitracin [From Neosporin (cdv-ime-mljws)] Allergy (Unknown, Verified 12/21/23 20:12) itch and rash, rash neomycin [From Neosporin (cqu-alw-psxat)] Allergy (Unknown, Verified 12/21/23 20:12) itch and rash, rash Penicillins Allergy (Unknown, Verified 12/21/23 20:12) Anaphylaxis polymyxin B [From Neosporin (xxs-rwc-hvywm)] Allergy (Unknown, Verified 12/21/2419:12) Rash and itch, [...] chart, including current orders, allied health and databases computer consultant notes, labs/imaging and performed orellana elements of exam and I formulated the plan of care and facilitated the medical decision making. I completed a substantive portion of this encounter, the medical decision makingportion of this note in its entirety, including Allied health note review, nursing note review, databases computer consultant note review, discussion with nursing and case management, and more than 50% of my time was spent on counseling and coordination of care, time spent 60 minutes Documented By: Elver Cifuentes MD 0920 Signed By: <Electronically signed by Elver Cifuentes MD> 12/22/23 5380 [facility] Work Phone: 1([phone]) 178-641207-09-2024 Consult note Author Roly Morales [facility] December 22, 2023 11:35am Note Date/Time December 22, 2023 10:55 am [facility] [address] [place] [address] Orthopedic Consult Note Signed Patient: Fani Chua MR#: [id number] : 1935 Acct:[id number] Age/Sex: 88 / M Adm Date: 4 Loc: 4N Room: [address] [place] [address] Type: ADM INOo Attending Dr: Ashley Merritt [...] is planning for admission to inpatient rehab. [facility] Medical History Patella fracture right.12/20/23 Hyperlipidemia Emphysema [...] Verified 12/21/23 20:12) Rash bacitracin [From Neosporin (dxn-yxr-bjndg)] Allergy (Unknown, Verified 12/21/23 20:12) itch and rash, rash neomycin [From Neosporin (qzw-jvl-fwekg)] Allergy (Unknown, Verified 12/21/23 20:12) itch and rash, rash Penicillins Allergy (Unknown, Verified 12/21/23 20:12) Anaphylaxis polymyxin B [From Neosporin (cnx-sob-uxhle)] Allergy (Unknown, Verified 12/21/2419:12) Rash and itch, [...] % (Auto) 69.1, Lymph % (Auto) 15.0, [place] % (Auto) 14.6, Eos % (Auto) 0.8, Baso % (Auto) 0.5, Nucleat RBC Rel Count 0.1, Neut # (Auto) 6.2, Lymph # (Auto) 1.4, [place] # (Auto) 1.3 H, Eos # (Auto) 0.1, Baso # (Auto) 0.0, PHA Creatinine Clear 58.48, Sodium 137, Potassium 3.8, Chloride 102, Carbon Dioxide 26.6, Anion Gap 12.2, BUN 25, Creatinine 0.89, Est GFR (CKD-EPI) > 60.0, [id number] H, Calcium 9.1 12/22/23 06:56: PT 16.3 [...] <Electronically signed by Roly Morales DO> 12/22/23 5890 [facility] Work Phone: 1(781) 280-425107-09-2024 Progress note Author Ashley Merritt [facility] December 22, 2023 9:37am Note Date/Time December 22, 2023 9:37a m [facility] [address] [place] [address] Hospitalist Progress Note Signed Patient: Fani Chua MR#: [id number] : 1935 Acct:[id number] Age/Sex: 88 / M Adm Date: 4 Loc: 4N Room: [address] [place] [address] Type: ADM INOo Attending Dr: Ashley Merritt [...] Verified 12/21/23 20:12) Rash bacitracin [From Neosporin (btk-blm-vncoc)] Allergy (Unknown, Verified 12/21/23 20:12) itch and rash, rash neomycin [From Neosporin (suu-fur-llilq)] Allergy (Unknown, Verified 12/21/23 20:12) itch and rash, rash Penicillins Allergy (Unknown, Verified 12/21/23 20:12) Anaphylaxis polymyxin B [From Neosporin (teo-fgk-mnfqs)] Allergy (Unknown, Verified 12/21/2419:12) Rash and itch, [...] <Electronically signed by Ashley Merritt MD> 12/22/23936 [facility] Work Phone: 1([phone]) 946-324007-09-2024 History and physical note Author Hilario Skelton [facility] December 22, 2023 3:27am Note Date/Time December 21, 2023 11:52 pm [facility] [address] [place] [address] Hospitalist H&P Signed Patient: Fani Chua MR#: [id number] : 1935 Acct:[id number] Age/Sex: 88 / M Adm Date: 4 Loc: 4N Room: [address] [place] [address] Type: ADM INOo Attending Dr: Hilario Skelton MD Copies to: MD Kaitlynn LorenzanaBENJI MD~ HPI DATE OF EXAMINATION: 12/21/23 CHIEF [...] of care and confirmed it with the resident/student/SOLE BUFFER. Patient is an 88-year-old male, who was [...] unless noted in the HPI or below. [facility] Medical History Patella fracture right.12/20/23 Hyperlipidemia Emphysema [...] Verified 12/21/23 20:12) Rash bacitracin [From Neosporin (mrf-vrh-rsyzf)] Allergy (Unknown, Verified 12/21/23 20:12) itch and rash, rash neomycin [From Neosporin (mcp-pqq-askug)] Allergy (Unknown, Verified 12/21/23 20:12) itch and rash, rash Penicillins Allergy (Unknown, Verified 12/21/23 20:12) Anaphylaxis polymyxin B [From Neosporin (azi-jbp-arjri)] Allergy (Unknown, Verified 12/21/2419:12) Rash and itch, [...] 1 Documented By: Kaitlynn Lewis APRN 12/21/23 5880 Signed By: <Electronically signed by BENJI Lewis> 12/22/23 0313 <Electronically signed by Hilario Skelton MD> 12/22/23 0329 [facility] Work Phone: [phone] 292-281707-07-2024 History and physical note Author Isai May [facility] December 20, 2023 7:23am Note Date/Time December 20, 2023 4:54a m [facility] [address] [place] [address] Hospitalist H&P Signed Patient: Fani Chua MR#: [id number] : 1935 Acct:[id number] Age/Sex: 88 / M Adm Date: 4 Loc: 4 Room: [id number] Type: ADM INOo Attending Dr: Betty Buchanan [...] with joint effusion. Symptomatic management for now. [facility] Medical History Hyperlipidemia Emphysema lung Arthritis Macular [...] Diabetes Daughter Bipolar 1 disorder Brother [facility] Relation: Brother(s) COPD (chronic obstructive pulmonary disease) [facility] Relation: Brother(s) Father 37 yrs Heart disease Mother Heart disease 67 yrs Sibling Cancer [facility] Problem: Diagnosed with Cancer Social History Smoking Status: Never smoker Tobacco Type: cigarettes Substance Use Type: Alcohol Substance Abuse Comment: drinks a beer nightly Meds Medications and Allergies Allergies amoxicillin Allergy (Severe, Verified 12/20/23 00:50) Swelling of Lip/Tongue/Throat adhesive Allergy (Unknown, Verified 12/20/23 00:50) Rash bacitracin [From Neosporin (eih-eih-aoojf)] Allergy (Unknown, Verified 12/20/23 00:50) itch and rash, rash neomycin [From Neosporin (kah-thg-cpbci)] Allergy (Unknown, Verified 12/20/23 00:50) itch and rash, rash Penicillins Allergy (Unknown, Verified 12/20/23 00:50) Anaphylaxis polymyxin B [From Neosporin (vqb-mfh-bfozt)] Allergy (Unknown, Verified 12/20/2399:50) Rash and itch, [...] 02:25 Lymph % (Auto) N/A 12/20/23 02:25 Eureka % (Auto) N/A 12/20/23 02:25 Eos % (Auto) N/A 12/20/23 02:25 Baso % (Auto) N/A 12/20/23 02:25 Nucleat RBC Rel Count N/A 12/20/23 02:25 Neut # (Auto) N/A 12/20/23 02:25 Lymph # (Auto) N/A 12/20/23 02:25 [place] # (Auto) N/A 12/20/23 02:25 Eos # [...] pH 5.0 (5.0-9.0) 12/20/23 02:55 Ur Specific [place] 1.019 (1.001-1.030) 12/20/23 02:55 Urine Protein Trace [...] 1 Documented By: Isai May DO 12/20/23 04 52 Signed By: <Electronically signed by Isai May DO> 12/20/23 0723 [facility] Work Phone: 1(116) 806-370104-16-2024 History of Present illness Narrative* Bonita Kingsley [...] with moderate pulmonary hypertension. [place] was in [place] couple weeksback and had a fall after [...] aortic stenosis status post TAVR 2019 at [facility]. Follow-up echocardiogram February 2023 revealed normal valve [...] mg) by mouth. Take as directed by [facility], Disp: , Rfl: Assessment/Plan 1. Nonrheumatic aortic valve stenosis 2. Presence of prosthetic heart valve 3. Status post transcatheter aortic valve replacement 4. Permanent atrial fibrillation (Multi) 5. Coronary artery disease, unspecified vessel or lesion type, unspecified whether angina present, unspecified whether [place] or transplanted heart 6. Congestive heart failure, NYHA class 2, unspecified congestive heart failure type (Multi) 7. Pulmonary hypertension (Multi) 8. Hypertension, unspecified type 9. Pure hypercholesterolemia 10. PVD (peripheral vascular disease) ([facility]) 11. Type 2 diabetes mellitus without complication, unspecified whether long-term insulin use (Multi) 12. Stage 2 chronic [...] exam, discussion and plan. [facility] Work Phone: 1(532) 537-754404-16-2024 Instructions* Patient Instructions* Gricelda Sena LPN - [...] 6 months Sept Echo [facility] Work Phone: 1(602) 371-589312-23-2023 Consult note Author Tyrese Gutierrez [facility] June 06, 2023 1:21pm Note Date/Time June 06, 2023 1:10pm [facility] [address] [place] [address] Cardiology Consult Note Signed Patient: Fani Chua MR#: [id number] : 1935 Acct:[id number] Age/Sex: 88 / M Adm Date: 3 Loc: 4N Room: [address] [place] [address] Type: ADM IN Attending Dr: Isai May [...] negative unless noted below or in HPI [facility] Medical History (Updated 06/06/23 @ 13:20 by [...] 15:15) Swelling of Lip/Tongue/Throat bacitracin [From Neosporin (vkt-zgx-uuzlk)] Allergy (Verified 06/04/23 15:15) itch and rash neomycin [From Neosporin (dnt-uzx-fvkcu)] Allergy (Verified 06/04/23 15:15) itch and rash polymyxin B [From Neosporin (xtm-elk-jhrkd)] Allergy (Verified 06/04/23 15:15) Rash and itch [...] nonspecific abnormality, ST segment, and/or T wave MT, pacemaker, normal Normal tracing: no change compared [...] home today. Recommend follow-up with his primary cook boat Dr. George within 3 weeks. Thank you very much for this kind consultation and for allowing me to participate in the care of this delightful patient. Documented By: Tyrese Gutierrez MD 06/06/23 1307 Signed By: <Electronically signed by Tyrese Gutierrez MD> 06/06/23 1328 [facility] Work Phone: 1([phone]) 626-344212-22-2023 Progress note Author Isai May [facility] June 05, 2023 6:38pm Note Date/Time June 05, 2023 6:39pm [facility] [address] [place] [address] Hospitalist Progress Note Signed Patient: Fani Chua MR#: [id number] : 1935 Acct:[id number] Age/Sex: 88 / M Adm Date: 3 Loc: 4N Room: [address] [place] [address] Type: ADM IN Attending Dr: Isai May [...] 15:15) Swelling of Lip/Tongue/Throat bacitracin [From Neosporin (dzj-toe-vqcok)] Allergy (Verified 06/04/23 15:15) itch and rash neomycin [From Neosporin (irq-vyl-gflzf)] Allergy (Verified 06/04/23 15:15) itch and rash polymyxin B [From Neosporin (vzk-xhl-ivkee)] Allergy (Verified 06/04/23 15:15) Rash and itch Active Meds: Active Medications Generic Name Dose Route Start Last Admin Trade Name Freq PRN Reason Stop Dose Admin Aspirin 81 mg 12/22/23 09:00 06/05/23 09:39 Aspirin 81 Mg Tab.Chew [...] <Electronically signed by Isai May DO> 06/05/23 [facility] Work Phone: [phone]) 637-710112-22-2023 Consult note Author Buck Glover [facility] June 05, 2023 3:26pm Note Date/Time June 05, 2023 3:26pm [facility] [address] [place] [address] Neurology Consult Note Signed Patient: Fani Chua MR#: [id number] : 1935 Acct:[id number] Age/Sex: 88 / M Adm Date: 3 Loc: 4N Room: [address] [place] [address] Type: ADM IN Attending Dr: Isai May DO Copies to: DO Isai Doe DO Robert L Hill, MD~ HPI Consult Date: 06/05/23 Director Of Training: Buck Glover DO [facility] Medical History (Updated 06/04/23 @ 16:47 by [...] 15:15) Swelling of Lip/Tongue/Throat bacitracin [From Neosporin (thw-wpg-rgbvv)] Allergy (Verified 06/04/23 15:15) itch and rash neomycin [From Neosporin (oko-dqk-zgnzc)] Allergy (Verified 06/04/23 15:15) itch and rash polymyxin B [From Neosporin (avs-fxs-eppym)] Allergy (Verified 06/04/23 15:15) Rash and itch [...] Trey Murray M.D.06/04/2023 5:18 PM Dictation Location: [place] [address] 06/04/23 15:18 IMPRESSION: ATROPHY AND CHRONIC MICROVASCULAR CHANGES. NO DEFINITE ACUTE INTRACRANIAL ABNORMALITY. FOLLOW-UP IS RECOMMENDED, SYMPTOMS WARRANT. Comment: Findings were discussed with Dr. 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 It is MR [...] <Electronically signed by Buck Glover DO> 06/05/23 1250 [facility] Work Phone: 1(605) 951-965712-22-2023 History and physical note Author Isai May [facility] June 04, 2023 10:49pm Note Date/Time June 04, 2023 10:49pm [facility] [address] [place] [address] Hospitalist H&P Signed Patient: Fani Chua MR#: [id number] : 1935 Acct:[id number] Age/Sex: 88 / M Adm Date: 3 Loc: 4N Room: [address] [place] [address] Type: ADM INOo Attending Dr: Isai May [...] BNP elevation Patient has been seen by [facility] in the past for A-fib however these ongoing cardiac issues do not appear to be symptomatic. His troponin and BNP elevation are mild and potentially chronic. Echocardiogram to rule out cardiac thrombus certainly is warranted for his neurologic evaluation but may shed lighton this further. Low suspicion for ACS or acute CHF at the moment. He does follow with [facility]. With his presenting normotension and lack of [...] negative unless noted below or in HPI [facility] Medical History (Updated 06/04/23 @ 16:47 by [...] 15:15) Swelling of Lip/Tongue/Throat bacitracin [From Neosporin (yow-tey-uoipu)] Allergy (Verified 06/04/23 15:15) itch and rash neomycin [From Neosporin (cak-hsv-urmzc)] Allergy (Verified 06/04/23 15:15) itch and rash polymyxin B [From Neosporin (iuo-qnx-ztkbo)] Allergy (Verified 06/04/23 15:15) Rash and itch [...] Values Corrected WBC 6.9 X10E3/uL (4.1-10.5) 06/04/23 15:22 Uncorrected WBC Count 6.9 x10E3/uL (4.1-10.5) 06/04/23 15:22 RBC 4.34 X10E6/uL (3.90-5.60) 06/04/23 15:22 Hgb 12.9 g/dL (13.0-17.0) L 06/04/23 15:22 Hct 38.4 % (38.8-50.0) L 06/04/23 15:22 MCV 88.4 fl (83.5-101) 06/04/23 15:22 MCH 29.7 pg (27.5-35.2) 06/04/23 15:22 MCHC 33.5 g/dL (32.5-35.6) 06/04/23 15:22 RDW 14.5 % (12.0-14.8) 06/04/23 15:22 Plt Count 194 x10E3/uL (150-450) 06/04/23 15:22 MPV 8.6 fl (6.6-10.1) 06/04/23 15:22 Neut % (Auto) 63.3 % (.) 06/04/23 15:22 Lymph % (Auto) 23.0 % (.) 06/04/23 15:22 [place] % (Auto) 11.2 % (.) 06/04/23 15:22 Eos % (Auto) 1.6 % (.) 06/04/23 15:22 Baso % (Auto) 0.9 % (.) 06/04/23 15:22 Nucleat RBC Rel Count 0.1 /100 WBC (0-0.5) 06/04/23 15:22 Neut # (Auto) 4.4 x10E3/uL (1.8-7.7) 06/04/23 15:22 Lymph # (Auto) 1.6 x10E3/uL (1.00-4.8) 06/04/23 15:22 [place] # (Auto) 0.8 x10E3/uL (0.0-0.8) 06/04/23 15:22 Eos # (Auto) 0.1 x10E3/uL (0.0-0.45) 06/04/23 15:22 Baso # (Auto) 0.1 x10E3/uL (0.0-0.2) 06/04/23 15:22 Monocyte Dist Width 17.82 % (0.00-20.00) 06/04/23 15:22 PT 33.6 Seconds (9.0-12.9) H 06/04/23 15:22 [...] pH 5.0 (5.0-9.0) 06/04/23 17:00 Ur Specific [place] 1.038 (1.001-1.030) H 06/04/23 17:00 Urine Protein [...] <Electronically signed by Isai May DO> 06/04/23 2246 [facility] Work Phone: 1(521) 495-492610-19-2023 Progress note Author Marisela Shaffer [facility] April 02, 2023 12:55pm Note Date/Time April 02, 2023 1 2:55pm [facility] [address] [place] [address] Wound Center Provider Note Signed Patient: Fani Chua MR#: [id number] : 1935 Acct:[id number] Age/Sex: 87 / M Copies to: MD Marisela Jansen, BENJI~ HPI Date of Visit Date of Visit: Date of Service: 04/02/2023 Time of Service: 12:54 Narrative HPI: 02/26/23 Te is an 87 year old male presenting to [facility] wound care program for an initial [...] and visits, is taking antibiotics per his phosphorus processing supervisor forsomething not related to the wounds we [...] wound start?: Early January 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 Lives with:: Spouse Appetite Description: Within Normal Limits Who helps w/ dressing change?: Self Smoking Status: Former smoker [facility] Medical History (Updated 03/23/23 @ 15:05 by [...] 10:30) Swelling of Lip/Tongue/Throat bacitracin [From Neosporin (dlr-qcd-bkapv)] Allergy (Verified 02/26/23 10:30) itch and rash neomycin [From Neosporin (gte-bpo-mjkiw)] Allergy (Verified 02/26/23 10:30) itch and rash polymyxin B [From Neosporin (gat-pwc-jsrau)] Allergy (Verified 02/26/23 10:30) Rash and itch Wound/Ulcer Left Lower Leg: Type: Traumatic Thickness: Full Bed Appearance: Beefy Red, Epithelial Tissue or Bridge, Bushyhead and Yellow Percent of Wound Bed Granulated/Red: [...] Signed By: <Electronically signed by BENJI Shaffer> 04/02/235 [facility] Work Phone: 1([phone]) 476-407810-16-2023 Evaluation note* Encounter Date Diagnosis Assessment Notes Treatment Notes Treatment Clinical Notes Mar, 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) [employer]Pages Other 10-09-2023 Progress note Author Marisela Shaffer [facility] March 23, 2023 3:05pm Note Date/Time March 23, 2023 3: 05pm [facility] [address] [place] [address] Wound Center Provider Note Signed Patient: Fani Chua MR#: [id number] : 1935 Acct:[id number] Age/Sex: 87 / M Copies to: MD Marisela Jansen APRN~ HPI Date of Visit Date of Visit: Date of Service: 03/23/2023 Time of Service: 15:03 Narrative HPI: 02/26/23 Te is an 87 year old male presenting to [facility] wound care program for an initial [...] and visits, is taking antibiotics per his phosphorus processing supervisor forsomething not related to the wounds we [...] wound start?: Early January 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 Lives with:: Spouse Appetite Description: Within Normal Limits Who helps w/ dressing change?: Self Smoking Status: Former smoker [facility] Medical History (Updated 03/23/23 @ 15:05 by [...] 10:30) Swelling of Lip/Tongue/Throat bacitracin [From Neosporin (cjx-gug-eqydt)] Allergy (Verified 02/26/23 10:30) itch and rash neomycin [From Neosporin (mmi-hso-lmlhe)] Allergy (Verified 02/26/23 10:30) itch and rash polymyxin B [From Neosporin (dwg-xwc-nhcha)] Allergy (Verified 02/26/23 10:30) Rash and itch Wound/Ulcer Left Lower Leg: Type: Traumatic Thickness: Full Bed Appearance: Beefy Red, Epithelial Tissue or Bridge, Bushyhead and Yellow Percent of Wound Bed Granulated/Red: 90 Percent of Devitalized: 10 Length (cm): 16.0 Width (cm): 4.5 Depth (cm): 0.1 CM Sq: 72.000 Surrounding Tissue Appearance: Hyperpigmented Surrounding Tissue Temp: Warm Drainage Amount: Moderate Drainage Description: Serosanguineous Drainage Odor: No Odor Left Hand: Type: Traumatic Thickness: Full Bed Appearance: [place] Percent of Wound Bed Granulated/Red: 100 Percent [...] 10 Dictated By: Marisela Shaffer APRN DD/ 02 Signed By: <Electronically signed by BENJI Shaffer> 03/23/23 1505 [facility] Work Phone: 1(310) 761-965110-02-2023 Progress note Author Marisela Shaffer [facility] March 16, 2023 2:26pm Note Date/Time March 16, 2023 2: 26pm [facility] [address] [place] [address] Wound Center Provider Note Signed Patient: Fani Chua MR#: [id number] : 1935 Acct:[id number] Age/Sex: 87 / M Copies to: MD Marisela Jansen APRN~ HPI Date of Visit Date of Visit: Date of Service: 03/16/2023 Time of Service: 14:24 Narrative HPI: 02/26/23 Te is an 87 year old male presenting to [facility] wound care program for an initial [...] and visits, is taking antibiotics per his phosphorus processing supervisor forsomething not related to the wounds we are treating Subjective Pain Left Lower Leg: Pain Description: Intermittent and Soreness Pain Intensity: 0 Pain Management Techniques Other/Comment: Only hurts when touched Left Hand: Pain Description: Intermittent and Soreness Pain Intensity: 1 Wound/Ulcer History When did wound start?: Early January 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 Lives with:: Spouse Appetite Description: Within Normal Limits Who helps w/ dressing change?: Self Smoking Status: Former smoker [facility] Medical History (Updated 03/05/23 @ 13:46 by [...] 10:30) Swelling of Lip/Tongue/Throat bacitracin [From Neosporin (ycz-hbe-rxskc)] Allergy (Verified 02/26/23 10:30) itch and rash neomycin [From Neosporin (rvq-zft-qrdyg)] Allergy (Verified 02/26/23 10:30) itch and rash polymyxin B [From Neosporin (zqm-nzx-ryuqs)] Allergy (Verified 02/26/23 10:30) Rash and itch Wound/Ulcer Left Lower Leg: Type: Traumatic Thickness: Full Bed Appearance: Beefy Red, Epithelial Tissue or Bridge, Bushyhead and Yellow Percent of Wound Bed Granulated/Red: 75 Percent of Devitalized: 25 Length (cm): 18 Width (cm): 6 Depth (cm): 0.1 CM Sq: 108.000 Surrounding Tissue Appearance: Hyperpigmented Surrounding Tissue Temp: Warm Drainage Amount: Moderate Drainage Description: Serosanguineous Drainage Odor: No Odor Left Hand: Type: Traumatic Thickness: Full Bed Appearance: Beefy Red, Bushyhead and Yellow Percent of Wound Bed Granulated/Red: [...] By: <Electronically signed by BENJI Shaffer> 03/16/23 [facility] Work Phone: 1(773) 984-911209-21-2023 Progress note Author Marisela Shaffer [facility] March 05, 2023 1:47pm Note Date/Time March 05, 2023 1:47pm [facility] [address] [place] [address] Wound Center Provider Note Signed Patient: Fani Chua MR#: [id number] : 1935 Acct:[id number] Age/Sex: 87 / M Copies to: MD Marisela Jansen APRN~ HPI Date of Visit Date of Visit: Date of Service: 03/05/2023 Time of Service: 13:44 Narrative HPI: 02/26/23 Te is an 87 year old male presenting to [facility] wound care program for an initial [...] wound start?: Early January 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 Lives with:: Spouse Appetite Description: Within Normal Limits Who helps w/ dressing change?: Self Smoking Status: Former smoker [facility] Medical History (Updated 03/05/23 @ 13:46 by [...] 10:30) Swelling of Lip/Tongue/Throat bacitracin [From Neosporin (ovb-uqn-mlxse)] Allergy (Verified 02/26/23 10:30) itch and rash neomycin [From Neosporin (sag-nuq-tjbxq)] Allergy (Verified 02/26/23 10:30) itch and rash polymyxin B [From Neosporin (rqa-iff-wopjf)] Allergy (Verified 02/26/23 10:30) Rash and itch Wound/Ulcer Left Lower Leg: Type: Traumatic Thickness: Full Bed Appearance: Beefy Red, Epithelial Tissue or Bridge, Bushyhead and Yellow Percent of Wound Bed Granulated/Red: 95 Percent of Devitalized: 5 Length (cm): 20 Width (cm): 16 Depth (cm): 0.1 CM Sq: 320.000 Surrounding Tissue Appearance: Hyperpigmented Surrounding Tissue Temp: Warm Drainage Amount: Moderate Drainage Description: Serosanguineous Drainage Odor: No Odor Left Hand: Type: Traumatic Thickness: Full Bed Appearance: Beefy Red, Epithelial Tissue or Bridge, Bushyhead and Yellow Percent of Wound Bed Granulated/Red: [...] By: <Electronically signed by BENJI Shaffer> 03/05/23 [facility] Work Phone: 1(806) 209-615009-14-2023 Progress note Author Marisela Shaffer [facility] February 26, 2023 10:41am Note Date/Time February 26, 2023 10:39am [facility] [address] [place] [address] Wound Center Provider Note Signed Patient: Fani Chua MR#: [id number] : 1935 Acct:[id number] Age/Sex: 87 / M Copies to: MD Marisela Jansen APRN~ HPI Date of Visit Date of Visit: Date of Service: 02/26/2023 Time of Service: 10:37 Narrative HPI: 02/26/23 Te is an 87 year old male presenting to [facility] wound care program for an initial [...] wound start?: Early January 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 Lives with:: Spouse Appetite Description: Within Normal Limits Who helps w/ dressing change?: Self Smoking Status: Former smoker [facility] Medical History (Updated 02/26/23 @ 10:38 by [...] 10:30) Swelling of Lip/Tongue/Throat bacitracin [From Neosporin (ifh-jlo-jsfwv)] Allergy (Verified 02/26/23 10:30) itch and rash neomycin [From Neosporin (aui-mif-bpkum)] Allergy (Verified 02/26/23 10:30) itch and rash polymyxin B [From Neosporin (plj-dgh-htqpt)] Allergy (Verified 02/26/23 10:30) Rash and itch Wound/Ulcer Left Lower Leg: Type: Traumatic Thickness: Full Bed Appearance: Beefy Red, Bushyhead and Yellow Percent of Wound Bed Granulated/Red: [...] <Electronically signed by BENJI Shaffer> 02/26/23 1041 [facility] Work Phone: [phone] 131-776112-15-2022 Progress note Author Marisela Shaffer [facility] 2022 10:58am Note Date/Time 2022 10:58am [facility] [address] [place] [address] Wound Center Provider Note Signed Patient: Fani Chua MR#: [id number] : 1935 Acct:[id number] Age/Sex: 87 / M Copies to: Trey العلي,DO Marisela Shaffer APRN~ HPI Date of Visit Date of Visit: Date of Service: 2022 Time of Service: 10:55 Narrative HPI: 05/29/22 Te is an 87 year old male presenting to [facility] wound care program for an initial visit for eval and treatment of a traumatic wound to the left lower leg. He has been using honey gel on the area with a nonstick telfa bandage. I see no signs of infection today but he did ask for Doxycycline since he is leaving for [place] in a couple weeks. He will use an antimicrobial cleanser and collagen powder/honey gel with a bandage. Healing will depend on the dressings being done as ordered as well as having a well balanced diet. Subjective Pain Left Lower Leg: Pain Intensity: 0 Wound/Ulcer History When did wound start?: April2022 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 Lives with:: Spouse Appetite Description: Within Normal Limits Who helps w/ dressing change?: Self Smoking Status: Former smoker [facility] Medical History (Updated 05/29/22 @ 10:58 by [...] 10:31) Swelling of Lip/Tongue/Throat bacitracin [From Neosporin (jil-dso-jxlcj)] Allergy (Verified 03/19/22 10:31) itch and rash neomycin [From Neosporin (spm-jso-ksugz)] Allergy (Verified 03/19/22 10:31) itch and rash polymyxin B [From Neosporin (onr-sfb-joqiw)] Allergy (Verified 03/19/22 10:31) Rash and itch Wound/Ulcer Left Lower Leg: Type: Traumatic Thickness: Partial Bed Appearance: Beefy Red, Bushyhead and Yellow Percent of Wound Bed Granulated/Red: [...] <Electronically signed by BENJI Shaffer> 05/29/22 1058 [facility] Work Phone: 1(922) 620-677412-08-2022 NoteCONSULTATION CONSULTATION DATE: 05/22/2022 HISTORY OF PRESENT [...] activity, his pain is 10/10. 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 [...] up and he agrees to move forward.[id number] NoteCONSULTATION CONSULTATION DATE: 04/24/2022 HISTORY OF PRESENT [...] in three months' time unless otherwise indicated.[facility] [id number] NoteCONSULTATION PROCEDURE DATE: 04/24/2022 PREOPERATIVE DIAGNOSIS: Bilateral [...] in the office in three months' time.[facility] [id number] NoteCONSULTATION CONSULTATION DATE: 03/25/2022 CHIEF COMPLAINT: Bilateral [...] patient understands and would like to proceed.[facility] [id number] Progress note Author Marisela Shaffer [facility] March 05, 2022 11:12am Note Date/Time March 05, 2022 11:12am [facility] [address] [place] [address] Wound Center Provider Note Signed Patient: Fani Chua MR#: [id number] : 1935 Acct:[id number] Age/Sex: 86 / M Copies to: NO FAMILY PHYSICIAN Marisela Shaffer APRN~ HPI Date of Visit Date of Visit: Date of Service: 03/05/2022 Time of Service: 11:06 Narrative HPI: 02/04/22 Te is an 86 year old male presenting to [facility] wound care program for an initial [...] to the left leg from the vacuum pillowcase cleaner, honey sheet to both areas, 2 [...] 2022 right, 02/18/22 Left 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 Lives with:: Spouse Appetite Description: [...] 10:50) Swelling of Lip/Tongue/Throat bacitracin [From Neosporin (zlt-msc-thmfw)] Allergy (Verified 03/05/22 10:50) itch and rash neomycin [From Neosporin (uok-efs-hmobb)] Allergy (Verified 03/05/22 10:50) itch and rash polymyxin B [From Neosporin (nwa-zni-ynbia)] Allergy (Verified 03/05/22 10:50) Rash and itch [...] <Electronically signed by BENJI Shaffer> 03/05/22 1112 [facility] Work Phone: 1(760) 198-237909-07-2022 Progress note Author Marisela Shaffer [facility] February 19, 2022 10:32am Note Date/Time February 19, 2022 10:32am [facility] [address] [place] [address] Wound Center Provider Note Signed Patient: Fani Chua MR#: [id number] : 1935 Acct:[id number] Age/Sex: 86 / M Copies to: NO FAMILY PHYSICIAN Marisela Shaffer APRN~ HPI Date of Visit Date of Visit: Date of Service: 02/19/2022 Time of Service: 10:28 Narrative HPI: 02/04/22 Te is an 86 year old male presenting to [facility] wound care program for an initial [...] to the left leg from the vacuum pillowcase cleaner, honey sheet to both areas, 2 week appt Subjective Pain Right Lower Medial Leg: Pain Description: Tender Pain Intensity: 0 Wound/Ulcer History When did wound start?: January 13, 2022 right, 02/18/22 Left 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 Lives with:: Spouse Appetite Description: [...] 09:28) Swelling of Lip/Tongue/Throat bacitracin [From Neosporin (ioq-kxz-djkwt)] Allergy (Verified 02/04/22 09:28) itch and rash neomycin [From Neosporin (spu-zqs-yprhg)] Allergy (Verified 02/04/22 09:28) itch and rash polymyxin B [From Neosporin (ruz-hsg-ivfuo)] Allergy (Verified 02/04/22 09:28) Rash and itch Wound/Ulcer Right Lower Medial Leg: Type: Traumatic (laceration) Thickness: Full Bed Appearance: Beefy Red and Bushyhead Percent of Wound Bed Granulated/Red: 100 Percent [...] 0.1 CM Sq: 2.340 Surrounding Tissue Appearance: Bushyhead Surrounding Tissue Temp: Warm Drainage Amount: Small [...] Signed By: <Electronically signed by BENJI Shaffer> 02/19/222 [facility] Work Phone: 1(876) 819-170908-23-2022 Progress note Author Marisela Shaffer [facility] February 04, 2022 9:43am Note Date/Time February 04, 2022 9: 43am [facility] [address] [place] [address] Wound Center Provider Note Signed Patient: Fani Chua MR#: [id number] : 1935 Acct:[id number] Age/Sex: 86 / M Copies to: NO FAMILY PHYSICIAN Marisela Shaffer APRN~ HPI Date of Visit Date of Visit: Date of Service: 02/04/2022 Time of Service: 09:38 Narrative HPI: 02/04/22 Te is an 86 year old male presenting to [facility] wound care program for an initial [...] start?: January 13, 2022 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 Lives with:: Spouse Appetite Description: [...] 09:28) Swelling of Lip/Tongue/Throat bacitracin [From Neosporin (ldu-qjs-fvhay)] Allergy (Verified 02/04/22 09:28) itch and rash neomycin [From Neosporin (rsj-hia-hmoqk)] Allergy (Verified 02/04/22 09:28) itch and rash polymyxin B [From Neosporin (vhq-sty-xwpxz)] Allergy (Verified 02/04/22 09:28) Rash and itch Wound/Ulcer Right Lower Medial Leg: Type: Traumatic (laceration) Thickness: Full Bed Appearance: Beefy Red and Bushyhead Percent of Wound Bed Granulated/Red: 100 Percent [...] <Electronically signed by BENJI Shaffer> 02/04/22 0943 [facility] Work Phone: 1(101) 353-576607-19-2022 NoteCONSULTATION CONSULTATION DATE: 12/31/2021 HISTORY OF PRESENT [...] like to proceed. CC: Trey العلي D.O. [facility] Signed and Approved by: DR KRISTIN MCGUIRE . 01/07/2022 09:44:00[facility]04-27-2022 Evaluation note* Encounter Date Diagnosis Assessment [...] seen sooner, or recommendations for spine surgeon. [employer] Other 12-01-2021 Evaluation note* Encounter Date Diagnosis [...] work with them until he goes to [place] for the winter. While in [place] he will do his own home physical [...] sometime in September when he returns from [place]. [employer] Other 10-05-2021 Evaluation note* Encounter Date Diagnosis [...] right foot, unspecified cause (ICD-10 - M10.9) [employer] Other 09-18-2020 History of Present illness Narrative* [...] chest pain, no syncope and no palpitations. [email or web address] [address] [place] Work Phone: Chief complaint Narrative - Reported* FANI CHUA is being seen for a cardiovascular evaluation . 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 * A telephone visit (audio only) between the patient (at the originating site) and the provider (at the distant site) was utilized to provide this telehealth service. [email or web address]-TWC [email or web address] [address] [place] Work Phone: Discharge summary Author Isai May [facility] June 06, 2023 4:21pm Note Date/Time June 06, 2023 3:57pm [facility] [address] [place] [address] Discharge Summary Signed Patient: Fani Chua MR#: [id number] : 1935 Acct:[id number] Age/Sex: 88 / M Adm Date: 3 Loc: 4N Room: 7B3185-[address]: Isai May DO Copies to: Bonita Kingsley MD, [facility] DO María Harmon MD~ Providers Date of [...] for discharge and follow-up with his regular cook boat. Low magnesium was repleted. High intensity statin [...] 53 Signed By: <Electronically signed by Isai May DO> 06/06/23 9388 [facility] Work Phone: Discharge summary Author Ashley Merritt [facility] December 23, 2023 1:04pm Note Date/Time December 23, 2023 1:04 pm [facility] [address] [place], [place] [id number] Discharge Summary Signed Patient: Fani Chua MR#: [id number] : 1935 Acct:[id number] Age/Sex: 88 / M Adm Date: 4 Loc: 4N Room: [address] [place] [address]: Ashley Merritt MD Copies to: MD Ashley Jansen MD~ Providers Date of Discharge: 12/23/23 Discharging Provider: Ashley Merritt Primary Care Provider: María Anderson Consults: 12/21/23 20:53 Consult to Case Management Routine Comment: CM Reason for Consult: Personal Lines Account Manager-General Consult to Occupational Therapy Routine Comment: Physician [...] Discharge Plan Discharge Plan Patient Disposition: [place] [facility] [place]: No Activity Restriction Diet: Regular Additional [...] any questions or concerns. Dr. Roly Morales [facility] [address] [place], [place] [id number] Incentive spirometry every hour while awake Prescriptions: [...] signed by Ashley Merritt MD> 12/23/23 1304 [facility] Work Phone: Discharge summary Author Bright Lopez [facility] February 27, 2024 5:08pm Note Date/Time February 27, 2024 5:08pm [facility] [address] [place] [address] Discharge Summary Signed Patient: Fani Chua MR#: [id number] : 1935 Acct:[id number] Age/Sex: 88 / M Adm Date: 4 Loc: Room: [address] [place] [address]: Bright Lopez MD Copies to: [...] % (Auto) 58.6, Lymph % (Auto) 22.7, [place] % (Auto) 16.3, Eos % (Auto) 1.4, Baso % (Auto) 1.0, Nucleat RBC Rel Count 0.0, Neut # (Auto) 2.4, Lymph # (Auto) 0.9 L, [place] # (Auto) 0.7, Eos # (Auto) 0.1, [...] signed by Bright Lopez MD> 02/27/24 1708 [facility] Work Phone: evaluation note* Diagnosis Onset Date Resolution Status Traumatic wound acute [facility] Work Phone: evaluation note* Diagnosis Onset Date Resolution Status Traumatic wound acute At high risk for altered skin integrity chronic Skin tear of left lower leg without complication chronic Thinning of skin chronic [facility] Work Phone: evaluation note* Diagnosis Onset Date Resolution Status Skin tear of left lower leg without complication acute At high risk for altered skin integrity chronic Thinning of skin chronic [facility] Work Phone: evaluation noteNo assessment information available [facility] Work Phone: evaluation note* Diagnosis Onset Date Resolution Status At high risk for altered skin integrity chronic Inflammation chronic Pain chronic Thinning of skin chronic Traumatic wound chronic [facility] Work Phone: evaluation note* Diagnosis 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 Heart valve replaced by other means documented in this encounter [facility] Work Phone: Evaluation note* Diagnosis Onset Date Resolution Status At high risk for altered skin integrity chronic Inflammation chronic Pain chronic Thinning of skin chronic Traumatic wound resolved [facility] Work Phone: Evaluation note* Diagnosis Onset Date Resolution Status At high risk for altered skin integrity chronic Inflammation chronic Pain chronic Thinning of skin chronic Traumatic wound resolved Blurred vision acute Bundle branch block acute Elevated troponin level not due to acute coronary syndrome acute History of transcatheter aor tic valve replacement (TAVR) acute Atrial fibrillation chronic [facility] Work Phone: Evaluation note* Diagnosis 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 Permanent atrial fibrillation (Multi) Atrial fibrillation Coronary artery disease, unspecified vessel or lesion type, unspecified whether angina present, unspecified whether [place] or transplanted heart Congestive heart failure, NYHA class 2, unspecified congestive heart failure type (Multi) Pulmonary hypertension (Multi) Other chronic pulmonary heart diseases Hypertension, unspecified type Pure hypercholesterolemia PVD (peripheral vascular disease) ([facility]) Unspecified peripheral vascular disease Type 2 diabetes mellitus without complication, unspecified whether long-term insulin use (Multi) Stage 2 chronic kidney disease Former smoker Personal history of tobacco use, presenting hazards to health documented in this encounter [facility] Work Phone: Evaluation note* Diagnosis Onset Date Resolution Status Contusion of rib on right side acute Fall from slip, trip, or stumble acute Right knee injury acute Traumatic hematoma of forehead acute [facility] Work Phone: Evaluation note* Diagnosis Onset Date [...] Traumatic hematoma of forehead acute Pain chronic [facility] Work Phone: Evaluation note* Diagnosis Onset Date [...] Hemarthrosis acute History of bladder cancer ac [place] History of prostate cancer a [place] History of transcatheter aor tic valve replacement (TAVR) acute Right knee injury acute Atrial fibrillation chronic Diabetes mellitus type 2, diet-controlled chronic Venous stasis of both lower extremities chronic Impaired mobility and activities of daily living resolved Knee pain resolved Right patella fracture resol tayler [facility] Work Phone: Evaluation note* Diagnosis Onset Date [...] right knee acute Right patella fracture acute [facility] Work Phone: Evaluation note* Diagnosis Onset [...] Numbness and tingling in left arm acute [facility] Work Phone: Evaluation note* Diagnosis Onset Date [...] arm acute Transient ischemic attack (TIA) acute [facility] Work Phone: Evaluation note* Diagnosis Onset Date [...] right knee acute Right patella fracture acute [facility] Work Phone: Evaluation note* Diagnosis Onset [...] international normalized ratio (INR) acute Weakness acute [facility] Work Phone: Evaluation note* Diagnosis Onset Date [...] international normalized ratio (INR) acute Weakness acute [facility] Work Phone: Evaluation note* Diagnosis Onset Date [...] Rotator cuff syndrome of right shoulder acute [facility] Work Phone: Evaluation note* Diagnosis Seborrheic keratosis- Primary documented in this encounter [facility] HealthcareEvaluation note* Diagnosis TIA (transient ischemic attack)- Primary Unspecified transient cerebral ischemia Cervical spondylosis without myelopathy Hyperreflexia Abnormal reflex documented in this encounter [facility] HealthcareEvaluation note* Diagnosis Skin tear of left elbow without complication, initial encounter- Primary Left leg cellulitis Left leg swelling Blood blister Vascular disorder of skin documented in this encounter [facility] HealthcareEvaluation note* Diagnosis Non-pressure chronic ulcer of other part of left lower leg with fat layer exposed ([facility])- Primary documented in this encounter [facility] HealthcareEvaluation note* Diagnosis 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 documented in this encounter [facility] Work Phone: Evaluation note* Diagnosis 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 Coronary artery disease, unspecified vessel or lesion type, unspecified whether angina present, unspecified whether [place] or transplanted heart Pulmonary hypertension (Multi) Other chronic pulmonary heart diseases Congestive heart failure, NYHA class 2, unspecified congestive heart failure type Permanent atrial fibrillation (Multi) Atrial fibrillation PVD (peripheral vascular disease) ([facility]) Unspecified peripheral vascular disease Former smoker Personal history of tobacco use, presenting hazards to health BMI 23.0-23.9, adult documented in this encounter [facility] Work Phone: Evaluation note* Diagnosis Lumbosacral spondylosis without myelopathy- Primary Skin tear of left elbow without complication, initial encounter Left leg cellulitis documented in this encounter [facility] HealthcareEvaluation note* Diagnosis Congestive heart failure, NYHA class 2, unspecified congestive heart failure type BMI 24.0-24.9, adult Former smoker Personal history of tobacco use, presenting hazards to health documented in this encounter [facility] Work Phone: Evaluation note* Diagnosis TIA (transient ischemic attack)- Primary Unspecified transient cerebral ischemia Generalized muscle weakness Muscle weakness (generalized) Chronic systolic congestive heart failure, NYHA class 2 ([facility]) documented in this encounter [facility] HealthcareEvaluation note* Diagnosis Nontraumatic tear of right rotator cuff, unspecified tear extent- Primary documented in this encounter [facility] HealthcareEvaluation note* Diagnosis Mixed hyperlipidemia ([facility])- Primary Mixed hyperlipidemia Prediabetes Other abnormal glucose Coronary artery disease involving [place] coronary artery of [place] heart without angina pectoris (CMS/[facility]) Chronic atrial fibrillation (HCC) ([facility]) Atrial fibrillation Congestive heart failure, NYHA class 2, unspecified congestive heart failure type ([facility]) Gastroesophageal reflux disease without esophagitis Esophageal reflux Anemia, unspecified type Lumbosacral spondylosis without myelopathy History of gout Personal history of endocrine, metabolic, and immunity disorders Centrilobular emphysema (CMS/HCC) Medicare annual wellness visit, subsequent ACP (advance care planning) Other specified counseling documented in this encounter [facility] HealthcareEvaluation note* Diagnosis Acute non-recurrent pansinusitis- Primary Acute cough Wheeze Wheezing Cerumen debris on tympanic membrane of left ear documented in this encounter [facility] HealthcareEvaluation note* Diagnosis Sinus congestion- Primary Other diseases of nasal cavity and sinuses Throat discomfort Throat pain Light headedness Dysfunction of both eustachian tubes Bruising Contusion of unspecified site Epistaxis Chronic systolic congestive heart failure, NYHA class 2 (CMS/HCC) documented in this encounter [facility] HealthcareEvaluation note* Diagnosis Congestive heart failure, NYHA class 2, unspecified congestive heart failure type Coronary artery disease involving [place] coronary artery of [place] heart without angina pectoris Chronic atrial fibrillation (Multi) Atrial fibrillation residential (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 Long-term (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 Essential (primary) hypertension Unspecified essential hypertension Mixed hyperlipidemia 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 Nonrheumatic mitral valve regurgitation PVD (peripheral vascular disease) Unspecified peripheral vascular disease Stage 2 chronic kidney disease Venous insufficiency (chronic) (peripheral) Unspecified venous (peripheral) insufficiency Pulmonary hypertension (Multi) Other chronic pulmonary heart diseases Former smoker Personal history of tobacco use, presenting hazards to health BMI 24.0-24.9, adult documented in this encounter [facility] Work Phone: Evaluation note* Diagnosis Chronic systolic congestive heart failure, NYHA class 2 (HCC)- Primary Coronary artery disease involving [place] coronary artery of [place] heart without angina pectoris Mixed hyperlipidemia Mixed hyperlipidemia Chronic atrial fibrillation (HCC) Atrial fibrillation Centrilobular emphysema (HCC) Prediabetes Other abnormal glucose History of bladder cancer Personal history of malignant neoplasm of bladder History of gout Personal history of endocrine, metabolic, and immunity disorders Hypomagnesemia 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 Erwin 05-27 Surgical History heart valve replacement 03/2020 Surgical History status post right total hip 202 1 Hospitalization History left rotator cuf f repair Dr. Zurita in [facility] 01/2015 Hospitalization History see surgical [employer] Other History general Narrative - Reported* Type [...] ment Surgical History left rotator cuff repair,at [facility] Surgical History Colonoscopy per Dr. Erwin 05-27 Surgical History heart valve replacement 03/2020 Surgical History status post right total hip 202 1 Hospitalization History left rotator cuf f repair Dr. Zurita in [facility] 01/2015 Hospitalization History see surgical hx [facility] Other Hospital Discharge instructions Additional Instructions Elevate your left lower extremity as instructed Take your antibiotic as instructed until gone Please return if you develop any fevers, chills, calf pain, increased pain, increased redness, increased swelling, or any other concern You have blood cultures that are pending.[facility] Work Phone: Hospital Discharge instructions Additional Instructions [...] other reasons. If it is to remain buttermaker continuous churn, however, changes of the stent are required [...] the next 2 to 3 weeks. [ ][facility] Work Phone: Hospital Discharge instructionsAmbulatory Orders* Initiate Home Health Time Frame: 1 Day, Location: Determined By Patient Additional Instructions Home Home Health to manage care: - Full code - PT/OT eval and treat - Routine vital signs - Weight bearing as tolerated Please do not take Tramadol if taking Oxycodone.[facility] Work Phone: Hospital Discharge instructionsAmbulatory Orders* PT/OT/SP OutPatient Referral Time Frame: 1 Day, Location: Determined By Patient [facility] Work Phone: Hospital Discharge instructions Additional Instructions Its important that you take your antibiotics as instructed until gone Push fluids Rest Return here if any problems persist or worsen.[facility] Work Phone: Instructions* Name Dates Details Instructions not documented [id number] [place] Work Phone: Instructions* Name Dates Details Instructions not documented [id number] [address] [place] Work Phone: Instructions* Name Dates Details Instructions not documented [facility] [address] [place] Work Phone: Progress note Author Marisela Shaffer [facility] March 19, 2022 10:50am Note Date/Time March 19, 2022 10 :50am [facility] [address] [place] [address] Wound Center Provider Note Signed Patient: Fani Chua MR#: [id number] : 1935 Acct:[id number] Age/Sex: 86 / M Copies to: NO FAMILY PHYSICIAN Marisela Shaffer APRN~ HPI Date of Visit Date of Visit: Date of Service: 03/19/2022 Time of Service: 10:48 Narrative HPI: 02/04/22 Te is an 86 year old male presenting to [facility] wound care program for an initial [...] to the left leg from the vacuum pillowcase cleaner, honey sheet to both areas, 2 [...] 2022 right, 02/18/22 Left 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 Lives with:: Spouse Appetite Description: [...] 81 18 147/85 H Room Air 03/19/22 10:03/19/22 10:03/19/22 10:29 03/19/22 10:03/19/22 10:29 Const General: cooperative, healthy appearing, comfortable [...] 10:31) Swelling of Lip/Tongue/Throat bacitracin [From Neosporin ([id number])] Allergy (Verified 03/19/22 10:31) itch and rash neomycin [From Neosporin (iea-qcx-zmlgx)] Allergy (Verified 03/19/22 10:31) itch and rash polymyxin B [From Neosporin (qjk-tso-bxuml)] Allergy (Verified 03/19/22 10:31) Rash and itch [...] <Electronically signed by BENJI Shaffer> 03/19/22 1050 [facility] Work Phone: Reason for visit Narrative* CV Imaging (Routine) - Authorized Specialty Diagnoses / Procedures Referred By Contac t Referred To Contact Cardiology Diagnoses 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 Procedures Transthoracic Echo Complete AR ECHO TTHRC R-T 2D W/WOM-MODE COMPL SPEC&COLR D Kingsley, Mesa M, MD 703 [facility] 2, [address] [place] [address] Phone: tel: fax: Referral ID Status Reason Start Date Expiration Date Visits Requested Visits Authorized [id number] Authorized Perform Procedure 09/29/2023 09/28/2024 1 1 [facility] Work Phone: Family History No Family [...] and currently on Coumadin managed by the [facility] Coumadin clinic without bleeding complications. His [...] aortic stenosis status post TAVR 2019 at [facility]. Follow-up echocardiogram in February 2021 was reviewed [...] and currently on Coumadin managed by the [facility] Coumadin clinic without bleeding complications. His [...] aortic stenosis status post TAVR 2019 at [facility]. Follow-up echocardiogram in February 2021 was reviewed [...] aortic stenosis status post TAVR 2019 at [facility]. Follow-up echocardiogram is scheduled. Currently asymptomatic from [...] Unilateral primary osteoarthritis, right FOLLOW UP FROM [facility] arm numbness, tingly Reason [...] Unilateral primary osteoarthritis, right FOLLOW UP FROM [facility] arm numbness, tingly Reason [...] Unilateral primary osteoarthritis, right FOLLOW UP FROM [facility] arm numbness, tingly 4 [...] in right shoulder CONSULT MARIA FERNANDA LAWS SOLE BUFFER RIGHT SHOULDER PAIN NX Reason for Visit [...] valve replacement Procedures Transthoracic Echo (TTE) Complete AR ECHO TRANSTHORC R-T 2D W/WO M-MODE REC F-UP/LMTD AR DOP ECHOCARD COLOR FLOW VELOCITY MAPPING AR DOP ECHOCARD PULSE WAVE W/SPECTRAL F-UP/LMTD Bonita Lucas MD [address] [place] [address], [address] [address] Referral ID Status Reason Start Date Expiration Date Visits Requested Visits Authorized [id number] Authorized Perform Procedure 03/05/2023 09/01/2023 1 1 Additional Source Comments REASON FOR VISIT (unrecogniz ed section and content) Specialty Diagnoses / Procedures Referred By Contac t Referred To Contact Cardiology Diagnoses 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 Procedures Transthoracic Echo (TTE) Complete AR ECHO TRANSTHORC R-T 2D W/WO M-MODE REC F-UP/LMTD AR DOP ECHOCARD COLOR FLOW VELOCITY MAPPING AR DOP ECHOCARD PULSE WAVE W/SPECTRAL F-UP/LMTD STD Bonita Kingsley MD [address] [place] [address], [address] [address] Referral ID Status Reason Start Date Expiration Date Visits Requested Visits Authorized [id number] Authorized Perform Procedure 03/05/2023 09/01/2023 1 1 Reason Comments Follow-up [facility] [place] Reason Comments Suspicious Skin Lesion Reason Comments Wound Check Referral Reason Comments Follow-up 6m and echo results Specialty Diagnoses / Procedures Referred By Contac t Referred To Contact Cardiology Diagnoses Nonrheumatic aortic valve stenosis Procedures Follow Up In Cardiology Bonita Kingsley MD [address] [place] [address] 2, [address] [address] Phone: tel: fax: Bonita Kingsley MD [address] [place] [address], [address] [address] Phone: tel: fax: Referral ID Status Reason Start Date Expiration Date V isits Requested Visits Authorized [id number] Authorized 09/29/2023 09/28/2024 1 1 Reason Onset Date Comments Med Refill 04/25/2024 Reason Comments Blood Pressure Check Specialty Diagnoses / Procedures Referred By Contac t Referred To Contact Cardiology Diagnoses Congestive heart failure, NYHA class 2, unspecified congestive heart failure type Procedures Follow Up In Cardiology Bonita Kingsley MD [address] [place] [address], [address] [address] Phone: tel: fax: Bonita Kingsley MD [address] [place] [address], [address] [address] Phone: tel: fax: Referral ID Status Reason Start Date Expiration Date V isits Requested Visits Authorized [id number] Authorized 04/18/2024 04/18/2025 1 1 Reason Comments Post Hospital Reason Comments Shoulder Pain Reason Comments 6 Month Follow Up Medicare Annual Wellness Visit [facility] [place] [place] t Reason Comments Sinus Problem Reason Comments Sinusitis Reason Comments Follow-up 6 month follow up fo r congestive heart failure Specialty Diagnoses / Procedures Referred By Contac t Referred To Contact Cardiology Diagnoses Congestive heart failure, NYHA class 2, unspecified congestive heart failure type Procedures Follow Up In Cardiology Bonita Kingsley MD [address] [place] [address] 2, [address] [address] Phone: tel: fax: Bonita Kingsley MD [address] [place] [address] 2, [address] [address] Phone: tel: fax: Referral ID Status Reason Start Date Expiration Date V isits Requested Visits Authorized [id number] Authorized 04/18/2024 04/18/2025 1 1 Reason Comments 6 Month Follow Up of Chronic Conditions Anxiety Reason Comments 1 month follow up Pt is being seen tod ay for his 1 month follow up and managment of his chronic conditions. Pt was rx'ed Zoloft at last office visit. Pt states that its been going good. He would like to talk about different medications like Tramadol that he could take since he cannot mix the two. States that the Zoloft dose is adequate for right now but might need dose increases as his condition worsens. Care Teams (unrecognized sec tion and content) [...] Waite MD Other Provider Active Start: Steph 2023 End: December 20, 2023 Aspen Bishop [...] 20, 2023 Isai May DO Admit Provider, Attroderick nding Provider Active Start: December 20, 2023 [...] Team Status: Active Member Role Status Tj العلي DO Primary Care Provider Active Team Status: Inactive Member Role Status Tj العلي DO Primary Care Provider, Attending Fito payan Active Team Status: Inactive Member Role Status Tj Anderson MD Primary Care Provider, Attending Prov ider Active Team Status: Inactive Member Role Status Tj Anderson MD Primary Care Provider Active Gely Lin APRN Emergency Provider Active Team Status: Active Member Role Status Tj Anderson MD Primary Care Provider Active Marisela Shaffer APRN Attending Provider Active Team Status: Inactive Member Role Status Tj Anderson MD Primary Care Provider Active Julio C Ramirez MD Attending Provider Active Team Status: Inactive Member Role Status Tj Anderson MD Primary Care Provider Active Marisela Shaffer APRN Attending Provider Active Senior Sql Server Dba Relationship Specialty Start Date End Date María Anderson MD [address] [place] [address] PCP - General 02/24/23 Team Status: Inactive Member Role Status Tj Anderson MD Primary Care Provider Active Tay Wood , DO Emergency Provider Active Nena Segura , DO RES Active Isai Mya , DO Admit Provider, Attending Provider Active Buck Glover , DO Other Provider Active Lenora Gonzalez RN Other Provider Active Elizabeth Hassan , DO Other Provider Active Bonita Kingsley MD Other Provider Active Lico Bolivar MD Other Provider Active Dominick Lugo MD Other Provider Active Robert Avila MD Other Provider Active Yandy Lewis APRN Other Provider Active Vika Goyal MD Other Provider Active Manpreet Rolon MD Other Provider Active Jarod Hills MD Other Provider Active Kelly Hernandez , [facility] Other Provider Active Emily Latham MD Other Provider Active Senior Sql Server Dba Relationship Specialty Start Date End Date María Anderson MD [address] [place] [address] PCP - General 02/24/23 Team Status: [...] Active Start: J belia 2023 Cherelle Schmidt APRN Other Provider Active St art: December 22, 2023 Kel Juan Jr, DO Other Provider Active S tart: December 22, 2023 Elver Cifuentes MD Attending Merged with [facility], Other Provider Active Start: December 22, 2023 Rubio Waite MD Other Provider Active Start: J belia 2023 Aspen Bishop MD Other Provider Active Star t: December 22, 2023 Mona Tyler , [facility] Other Provider Active Start: December 22, 2023 Roly Morales DO Other Provider Active Start : December 22, 2023 María Stevenosn II, MD Other Provider Active S tart: [...] Radha Woodward MD Other Provider Active Start: jody 2023 End: December 23, 2023 Henry Clark [...] Star t: December 22, 2023 Mona Tyler , [facility] Other Provider Active Start: December 22, 2023 Roly Morales DO Attending Provider, Other Provider Active Start: December 22, 2023 María Stevenson II, MD Other Provider Active S tart: December 22, 2023 Ramses Garcia DO Other Provider Active Start: December 22, 2023 Radha Woodward MD Other Provider Active Start: Selena vera 2023 Henry Clark MD Other Provider Active Start: J belia 2023 Cherelle Schmidt APRN Other Provider Active [...] Ley , ANA Other Provider Active Start: Steph 2023 End: December 29, 2023 Macrina Rubio , ANA Other Provider Active Start: Selena vera 2023 End: December 29, 2023 Bebe Ivey [...] Active Start: 2023 End: December 29, 2023 Kkii Claros APRN Other Provider Active Start: December [...] 2023 End: December 29, 2023 Home Marino , Other Provider Active Start: December 23, 2023 [...] Aidan Knight MD Other Provider Active Start: J 2023 End: December 29, 2023 Wesly Palmer MD Other Provider Active Start: Selena vera 2023 End: December 29, 2023 Naheed Uriostegui RN Other Provider Active Start: J belia 2023 End: December 29, 2023 Team Status: [...] Star t: December 24, 2023 Shabnam Ley ANA Other Provider Active Start: 2023 Macrina Rubio RN Other Provider Active Start: 2023 Bebe Ivey MD Other Provider Active [...] Other Provider Active Start: Dec Tara Wright SO[facility] [employer]FFER-C Other Provider Active St art: December 24, [...] Regis Winston MD Other Provider Active Start: Steph belia 2023 Pedrito Prather MD Other Provider Active [...] Aidan Knight MD Other Provider Active Start: Steph 2023 Wesly Palemr MD Other Provider Active Start: Selena vera 2023 Naheed Uriostegui RN Other Provider Active Start: J belia 2023 Team Status: Active Member Role Status [...] March 08, 2024 End: March 08, 2024 Senior Sql Server Dba Relationship Specialty Start Date End Date María Anderson MD [address] [facility] [address] [place] [address] PCP - General Internal Medicine 11/04/22 María Anderson MD [address] [place] [address] PCP - ACO Reach 03/15/24 Frank Hook MD [address] [place] [address] Referring Physician Dermatology 05/14/23 Julio C Ramirez MD [address] [place] [address] Referring Physician Urology 05/14/23 Bonita Kingsley MD [address] [place] [address] Referring Physician Cardiology 05/14/23 Senior Sql Server Dba Relationship Specialty Start Date End Date María Anderson MD [address] [place] [address] PCP - General Internal Medicine 11/04/22 María Anderson MD [address] [place] [address] PCP - ACO Reach 03/15/24 Frank Hook MD [address] [place] [address] Referring Physician Dermatology 05/14/23 Julio C Ramirez MD [address] [place] [address] Referring Physician Urology 05/14/23 Bonita Kingsley MD [address] [address] Referring Physician Cardiology 05/14/23 Senior Sql Server Dba Relationship Specialty Start Date End Date María Anderson MD [address] [place] [address] PCP - General Internal Medicine 11/04/22 María Anderson MD [address] [place] [address] PCP - ACO Reach 03/15/24 Frank Hook MD [address] [place] [address] Referring Physician Dermatology 05/14/23 Julio C Ramirez MD [address] [place] [address] Referring Physician Urology 05/14/23 Bonita Kingsley MD [address] [address] Referring Physician Cardiology 05/14/23 Senior Sql Server Dba Relationship Specialty Start Date End Date María Anderson MD [address] [place] [address] PCP - General Internal Medicine 11/04/22 María Anderson MD [address] [place] [address] PCP - ACO Reach 03/15/24 Frank Hook MD [address] [place] [address] Referring Physician Dermatology 05/14/23 Julio C Ramirez MD [address] [place] [address] Referring Physician Urology 05/14/23 Bonita Kingsley MD [address] [place] [address] Referring Physician Cardiology 05/14/23 Senior Sql Server Dba Relationship Specialty Start Date End Date María Anderson MD [address] [place] [address] PCP - General Internal Medicine 11/04/22 María Anderson MD [address] [place] [address] PCP - ACO Reach 03/15/24 Frank Hook MD [address] [place] [address] Referring Physician Dermatology 05/14/23 Julio C Ramirez MD [address] [place] [address] Referring Physician Urology 05/14/23 Bonita Kingsley MD [address] [place] [address] Referring Physician Cardiology 05/14/23 Senior Sql Server Dba Relationship Specialty Start Date End Date María Anderson MD [address] [place] [address] PCP - General Internal Medicine 11/04/22 María Anderson MD [address] [place] [address] PCP - ACO Reach 03/15/24 Frank Hook MD [address] [place] [address] Referring Physician Dermatology 05/14/23 Julio C Ramirez MD [address] [facility] [place] [address] Referring Physician Urology 05/14/23 Bonita Kingsley MD 7[address] [facility] [address] [place] [address] Referring Physician Cardiology 05/14/23 Senior Sql Server Dba Relationship Specialty Start Date End Date María Anderson MD [address] [place] [address] PCP - General 02/24/23 Senior Sql Server Dba Relationship Specialty Start Date End Date María Anderson MD [address] [place] [address] PCP - General 02/24/23 Senior Sql Server Dba Relationship Specialty Start Date End Date María Anderson MD [address] [place] [address] PCP - General Internal Medicine 11/04/22 María Anderson MD [address] [place] [address] PCP - ACO Reach 03/15/24 Frank Hook MD [address] [place] [address] Referring Physician Dermatology 05/14/23 Julio C Ramirez MD [address] [place] [address] Referring Physician Urology 05/14/23 Bonita Kingsley MD 703 [facility] [address] [place] [address] Referring Physician Cardiology 05/14/23 Senior Sql Server Dba Relationship Specialty Start Date End Date María Anderson MD [address] [place] [id number] PCP - General 02/24/23 Senior Sql Server Dba Relationship Specialty Start Date End Date María Anderson MD [address] [place] [address] PCP - General Internal Medicine 11/04/22 Trey العلي DO [address] [place] [address] PCP - ACO Reach 11/06/22 Frank Hook MD [address] [place] [address] Referring Physician Dermatology 05/14/23 Julio C Ramirez MD [address] [place] [address] Referring Physician Urology 05/14/23 Bonita Kingsley MD 703 [facility] [address] [place] [address] Referring Physician Cardiology 05/14/23 Senior Sql Server Dba Relationship Specialty Start Date End Date María Anderson MD [address] [place] [address] PCP - General Internal Medicine 11/04/22 María Anderson MD [address] [place] [address] PCP - ACO Reach 03/15/24 Frank Hook MD [address] [place] [address] Referring Physician Dermatology 05/14/23 Julio C Ramirez MD [address] [facility] [address] Referring Physician Urology 05/14/23 Bonita Kingsley MD 703 [facility] [address] [place] [address] Referring Physician Cardiology 05/14/23 Team Status: Inactive [...] June 15, 2024 End: June 15, 2024 Senior Sql Server Dba Relationship Specialty Start Date End Date María Anderson MD [address] [place] [address] PCP - General Internal Medicine 11/04/22 María Anderson MD [address] [place] [address] PCP - ACO Reach 03/15/24 Frank Hook MD [address] [place] [address] Referring Physician Dermatology 05/14/23 Julio C Ramirez MD [address] [place] [address] Referring Physician Urology 05/14/23 Bonita Kingsley MD [address] [place] [address] [address] [place] [address] Referring Physician Cardiology 05/14/23 Senior Sql Server Dba Relationship Specialty Start Date End Date María Anderson MD [address] [place] [address] PCP - General Internal Medicine 11/04/22 María Anderson MD [address] [place] [address] PCP - ACO Reach 03/15/24 Frank Hook MD [address] [place] [address] Referring Physician Dermatology 05/14/23 Julio C Ramirez MD [address] [place] [address] Referring Physician Urology 05/14/23 Bonita Kingsley MD [address] [facility] [address], [address] [place] [address] Referring Physician Cardiology 05/14/23 Senior Sql Server Dba Relationship Specialty Start Date End Date María Anderson MD [address] [place] [address] PCP - General Internal Medicine 11/04/22 María Anderson MD [address] [place] [address] PCP - ACO Reach 03/15/24 Frank Hook MD [address] [place] [address] Referring Physician Dermatology 05/14/23 Julio C Ramirez MD [address] [facility] [place] [address] Referring Physician Urology 05/14/23 Bonita Kingsley MD [address] [facility] [address] [place] [address] Referring Physician Cardiology 05/14/23 Senior Sql Server Dba Relationship Specialty Start Date End Date María Anderson MD [address] [place] [address] PCP - General Internal Medicine 11/04/22 María Anderson MD [address] [place] [address] PCP - ACO Reach 03/15/24 Frank Hook MD [address] [place] [address] Referring Physician Dermatology 05/14/23 Julio C Ramirez MD [address] [place] [address] Referring Physician Urology 05/14/23 Bonita Kingsley MD [address] [place] [address] Referring Physician Cardiology 05/14/23 Senior Sql Server Dba Relationship Specialty Start Date End Date María Anderson MD [address] [place] [address] PCP - General 02/24/23 Senior Sql Server Dba Relationship Specialty Start Date End Date María Anderson MD [address] [place] [address] PCP - General Internal Medicine 11/04/22 María Anderson MD [address] [place] [address] PCP - ACO Reach 03/15/24 Frank Hook MD [address] [place] [address] Referring Physician Dermatology 05/14/23 Julio C Ramirez MD [address] [place] [address] Referring Physician Urology 05/14/23 Bonita Kingsley MD [address] [place] [address] Referring Physician Cardiology 05/14/23 Senior Sql Server Dba Relationship Specialty Start Date End Date María Anderson MD [address] [place] [address] PCP - General Internal Medicine 11/04/22 María Anderson MD [address] [place] [address] PCP - ACO Reach 03/15/24 Frank Hook MD [address] [place] [address] Referring Physician Dermatology 05/14/23 Julio C Ramirez MD [address] [facility] [place] [address] Referring Physician Urology 05/14/23 Bonita Kingsley MD [address] [facility] [address], [address] [place] [address] Referring Physician Cardiology 05/14/23 Senior Sql Server Dba Relationship Specialty Start Date End Date María Anderson MD [address] [place] [address] PCP - General Internal Medicine 11/04/22 María Anderson MD [address] [place] [address] PCP - ACO Reach 03/15/24 Frank Hook MD [address] [place] [address] Referring Physician Dermatology 05/14/23 Julio C Ramirez MD [address] [facility] [address] Referring Physician Urology 05/14/23 Bonita Kingsley MD [address] [facility] [address] [place] [address] Referring Physician Cardiology 05/14/23 Goals (unrecognized section [...] section and content) DATE CREATED AUTHOR [facility]/26/2022 [facility] DATE CREATED AUTHOR AUTHOR'S ORGANIZ ATION 04/05/2022 [facility] dical Specialist DATE CREATED AUTHOR AUTHOR'S ORGANIZ ATION 11/23/2022 [facility] DATE CREATED AUTHOR AUTHOR'S ORGANIZ ATION 02/25/2023 [facility] DATE CREATED AUTHOR AUTHOR'S ORGANIZ ATION 02/25/2023 [employer] DATE CREATED AUTHOR AUTHOR'S ORGANIZ ATION 04/18/2024 [facility] DATE CREATED AUTHOR AUTHOR'S ORGANIZ ATION 07/02/2024 [facility] DATE CREATED AUTHOR AUTHOR'S ORGANIZ ATION 08/18/2024 [facility] DATE CREATED AUTHOR AUTHOR'S ORGANIZ ATION 10/23/2024 [facility] DATE CREATED AUTHOR AUTHOR'S ORGANIZ ATION 10/26/2024 [facility] DATE CREATED AUTHOR AUTHOR'S ORGANIZ ATION 10/28/2024 [facility] DATE CREATED AUTHOR AUTHOR'S ORGANIZ ATION 11/11/2024 [facility] DATE CREATED AUTHOR AUTHOR'S ORGANIZ ATION 12/14/2024 [facility] DATE CREATED AUTHOR AUTHOR'S ORGANIZ ATION 02/03/2025 [facility] Specialists EPIC DATE CREATED AUTHOR AUTHOR'S ORGANIZ ATION 02/27/2025 [facility] FOR RECORDS PERTAINING TO PATIENTS WHO ARE [...] BE BASED ON THE PRIMARY CLINICAL RECORDS. [employer] [facility]. provides no warranty or guarantee of the accuracy or completeness of information in this document.
[2025-03-02 13:55] LABS: Hematocrit 34.3 % (42.0-54.0); Hemoglobin 11.0 g/dL (14.0-18.0); Immature Granulocytes Abs Auto 0.03 10^3/uL (0.00-0.03); Immature Granulocytes Pct Auto 0.7 % (0.0-0.5); Lymphocytes Absolute Auto 1.2 10^3/uL (1.2-3.8); Mean Corpuscular HGB Conc 32.1 g/dL (29.9-35.2); Mean Corpuscular Hemoglobin 28.4 pg (25.9-34.0); Mean Corpuscular Volume 88.6 fL (80.0-94.0); Platelet Count 96 10^3/uL (150-450); Red Blood Count 3.87 10^6/uL (4.70-6.10); Reticulocyte Pct Auto 2.20 % (0.60-3.10); White Blood Count 4.6 10^3/uL (4.0-11.0)
[2025-03-02 14:09] LABS: Alanine Aminotransferase 48 U/L (16-63); Albumin Globulin Ratio 1.1; Albumin Level 4.0 g/dL (3.4-5.0); Alkaline Phosphatase 107 U/L (46-116); Anion Gap 16.1; Aspartate Amino Transferase 53 U/L (15-37); Blood Urea Nitrogen 26.0 mg/dL (7.0-18.0); Calcium 9.0 mg/dL (8.5-10.1); Carbon Dioxide 23.0 mmol/L (21.0-32.0); Chloride 109 mmol/L (98-107); Estimated GFR (African America >60 (>=60 mL/min/1.73m^2); Estimated GFR (Non-African Ame >60 (>=60 mL/min/1.73m^2); Globulin 3.7 g/dL; Glucose 103 mg/dL (74-106); Potassium 4.1 mmol/L (3.5-5.1); Sodium 144 mmol/L (136-145); Total Protein 7.7 g/dL (6.4-8.2)
[2025-03-02 15:01] LABS: Iron 38.0 ug/dL (65.0-175.0); Percent Iron Saturation 10.2 %; Total Iron Binding Capacity 372.0 ug/dL (250.0-450.0)
[2025-03-02 15:16] LABS: Ferritin 37.0 ng/mL (26.0-388.0); Folate 13.70 ng/mL (8.60-58.90)
[2025-03-03 04:07] LABS: Vitamin B12 489 pg/mL (232-1245)
[2025-03-03 05:07] LABS: Transferrin 303 mg/dL (149-313)
== END 2025-03-02 13:18 | disposition home or self-care (01) ==
LOC: LAB 13:18
PROVIDERS: PCP Internal Medicine; Visit Provider Internal Medicine
DX: D69.6 Thrombocytopenia, unspecified (principal); D64.9 Anemia, unspecified
CPT/HCPCS: 36415; 80053; 82607; 82728; 82746; 83540; 83550; 83615; 84466; 85025; 85045

== ENCOUNTER 2025-03-15 01:49 | Outpatient (RCR) | payer MEDICARE, OTHER, SELFPAY | END 2025-04-14 23:59 | disposition home or self-care (01) | LOC: MM 01:49 | PROVIDERS: PCP Internal Medicine; Visit Provider Internal Medicine | DX: Z51.81 Encounter for therapeutic drug level monitoring (principal); Z79.01 Long term (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; I48.20 Chronic atrial fibrillation, unspecified; Z95.2 Presence of prosthetic heart valve ==

== ENCOUNTER 2025-04-06 12:56 | Outpatient (OUT) | payer MEDICARE, OTHER, SELFPAY ==
--- OUTSIDE RECORDS SUMMARY | 2025-03-28 11:00 | XMS_ITS | Encounter Summary ---
Author Organization [facility] Address [address] [place] [address] Care Team Providers Care Extended Insurance Clerk Name Role Phone Supa Reardon MD Primary Care Provider [phone] Monica Hook MD Unavailable [phone] Jorje Ramirez MD Unavailable [phone] Bonita Ovalles MD Unavailable [phone] Supa Reardon MD Unavailable [phone] Reason for Referral * Imaging (Routine) - AuthorizedSpecialtyDiagnoses / ProceduresReferred By ContactReferred To ContactRadiology Diagnoses Centrilobular emphysema (HCC) Chronic cough Procedures CT chest high resolution Dyan Mello NP [address] [facility] [address] [place] [address] Phone: tel: fax: [facility] [address] [place] [address] Phone: tel: fax: Referral IDStatusReasonStart DateExpiration DateVisits RequestedVisits [id number]/14/20254/ Reason for Visit * ReasonCommentsHospital Follow-upPatient was admitted to [facility] on 03/21- 03/22/2025 due to a fall. Two lacerations on forehead, both sutured. Several skin tears. He is following with [facility] and has [facility] nursing once weekly. He is going to start in home PT. Encounter Details DateTypeDepartmentCare Team (Latest Contact Info)Viwzpxbrbhl95/14/2025 11:00 AM EDTOffice Visit [facility] [address] [place] [id number] Supa Reardon MD [address] [place] [address] Balance disorder (Primary Dx); Vertigo of central origin; Frequent falls; Congestive heart failure, NYHA class 2, unspecified congestive heart failure type (HCC); Centrilobular emphysema (HCC); Chronic cough; Laceration of scalp without foreign body, subsequent encounter; Epistaxis Social History Tobacco UseTypesPacks/DayYears UsedDateSmoking Tobacco: FormerCigarettesQuit: 06/15/2001Smokeless Tobacco: Never Comments:Ex-heavy cigarettes smoker (20-30/day) Alcohol UseStandard Drinks/RortEvzhexdeZli86 (1 standard drink = 0.6 oz pure alcohol).caffeine intake:Coffee, 3-4 cups per day.PHQ-2AnswerDate Recorded Patient Health Questionnaire-2 Oxgxs331Sex and Gender InformationValue Date RecordedSex Assigned at BirthNot on fileLegal UimVvvj0308/27/2022 7:09 PM EDTGender IdentityNot on fileSexual OrientationNot on fileOccupationIndustryJob Start DateJob 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 [employer] CenteroolNot on fileNot on fileNot on filedocumented as of this encounter Last Filed Vital Signs Vital SignReadingTime TakenCommentsBlood Mtcxdacp944/6003/28/2025 11:23 AM EDT Rtjzo262803/28/2025 11:23 AM EDTTemperature--Respiratory Rate--Oxygen Saturation 95%03/28/2025 11:23 AM EDTInhaled Oxygen Concentration--Mgpkqw98.2 kg (157 lb) 03/28/2025 11:23 AM ZVYTujxfn575.3 cm (5' 9 )03/28/2025 11:23 AM EDTBody Mass Index23.1810/ 11:23 AM EDTdocumented in this encounter Progress Notes * Supa Reardon MD - 03/28/2025 11:00 AM EDT Images from the original note were not included. Gerard Chua is a 89 y.o. male presents with chief complaint of Hospital Follow- up (Patient was admitted to [facility] on 03/21-03/22/2025 due to a fall. Two lacerations on forehead, both sutured. Several skin tears. He is following with [facility] and has [facility] nursing once weekly. He is going to start in home PT. ) HPI: History of Present Illness The patient presents for evaluation of dizziness, laceration, and nosebleed. Dizziness He has been experiencing dizziness, which he attributes to a lost bottle of meclizine, of which he had only used three tablets. He does not experience any sensation of spinning at present. He reportsnot maintaining adequate hydration. He has previously consulted with Jose Maria Pino, a physical therapist specializing in vertigo, but found the treatment too intense and did not return. He has soughtmedical attention for his dizziness on several occasions, including three hospital admissions wherethe diagnosis was consistently vertigo. He describes his symptoms as a sensation of the room spinning rather than true dizziness, accompanied by visual disturbances. He has a history of a minor stroke three years ago, which has led to concerns about recurrent strokes whenever he experiences lightheadedness. - Onset: History of minor stroke three years ago; recent exacerbation due to lost bottle of meclizine. - Character: Sensation of the room spinning rather than true dizziness, accompanied by visual disturbances. - Alleviating/Aggravating Factors: Lost bottle of meclizine; inadequate hydration; intense physicaltherapy treatment. - Severity: Concerns about recurrent strokes whenever experiencing lightheadedness. Laceration He has been receiving wound care every Thursday for lacerations that frequently reopen. He was advised to remove the sutures within six days to avoid discomfort, but it has now been seven days sincethe incident occurred at midnight on 03/21/2025. - Onset: Incident occurred at midnight on 03/21/2025. - Duration: Seven days since the incident. - Character: Lacerations that frequently reopen. - Timing: Receiving wound care every Thursday. Nosebleed He experienced a persistent nosebleed two days ago, which he managed by inserting cotton balls intohis nostrils. Despite advice from his daughter and son to seek emergency care, he did not do so. Yolanda reports that his nose was discolored, appearing purple down to his chin. - Onset: Persistent nosebleed two days ago. - Character: Nosebleed managed by inserting cotton balls; nose discolored, appearing purple down tohis chin. - Severity: Advised to seek emergency care but did not do so. His blood pressure reading yesterday morning was 137/80, as recorded by Jb from home nursing. I have reviewed and reconciled the history and medication list with the patient today. HISTORIES: PAST MEDICAL HISTORY: Medical History[1] SURGICAL HISTORY: Surgical History[2] SOCIAL HISTORY: Social History[3] Depression: Not at risk (02/01/2025) PHQ-2 PHQ-2 Score: 0 FAMILY HISTORY: Family History[4] MEDICATIONS: Current Outpatient Medications Medication Instructions albuterol [...] 400 MG tablet 1 tablet, Oral, Daily meclizine (ANTIVERT) 12.5 mg, Oral, 3 times daily PRN Melatonin 10 MG capsule 1 tablet, Nightly Multiple Vitamins-Minerals (PRESERVISION AREDS 2 PO) Take by mouth Nutritional Supplements (ADULT NUTRITIONAL SUPPLEMENT PO) 1 tablet, Daily pantoprazole (PROTONIX) 40 mg, Oral, Daily before breakfast sertraline (ZOLOFT) 25 mg, Oral, Daily warfarin (COUMADIN) 10 mg, Oral, Nightly Zeaxanthin powder 1 capsule, Daily RT ALLERGIES: Allergies[5] PHYSICAL EXAM: Visit Vitals BP 106/60 (BP Location: Left arm, Patient Position: Sitting) Pulse 77 Ht 5' 9 Wt 157 lb SpO2 95% BMI 23.18 kg/m?? Smoking Status Former BSA 1.86 m?? BP Readings from Last 3 Encounters: 03/28/25 106/60 08/20/25 124/74 12/13/24 120/70 Wt Readings from Last 3 Encounters: 03/28/25 157 lb 02/01/25 160 lb 1.6 oz 12/13/24 160 lb Physical Exam HENT: Right Ear: Tympanic membrane and external ear normal. Left Ear: Tympanic membrane and external ear normal. Nose: Right Nostril: No epistaxis. Left Nostril: No epistaxis. Mouth/Throat: Mouth: Mucous membranes are moist. Neck: [...] Psychiatric: Thought Content: Thought content normal. Results ASSESSMENT AND PLAN: Assessment & Plan 1. Vertigo of central origin Dizziness: Chronic. - Prescription for meclizine will be sent to the pharmacy to manage dizziness. - Advised to stay hydrated as it helps with dizziness. - He will be getting home PT. - meclizine (Antivert) 12.5 MG tablet; Take 1 tablet (12.5 mg) by mouth 3 (three) times a day as needed for dizziness or nausea Dispense: 30 tablet; Refill: 0 2. Balance disorder (Primary) As above. 3. Frequent falls As above. 4. Congestive heart failure, NYHA class 2, unspecified congestive heart failure type (HCC) Denies problems with SOB, MONIQUE, or increased edema with weight gain. Continue current medication regimen. Eat a heart healthy diet low in sodium. Monitor weights regularly and call if increased more than 5 pounds. Call immediately if any problems or concerns. - losartan (Cozaar) 25 MG tablet; Take 0.5 tablets (12.5 mg) by mouth Daily 5. Centrilobular emphysema (HCC) Has tried antihistamine, breztri, albuterol without relief of cough. Recent CXR reviewed. Order CT chest, pt aware he will be contacted to schedule. - CT chest high resolution; Future 6. Chronic cough As above. - CT chest high resolution; Future 7. Laceration of scalp without foreign body, subsequent encounter Laceration: Healing. - Sutures removed today x 8. - Advised not to scrub forehead to prevent reopening the wound. - Steri-Strips applied for additional support. 8. Epistaxis Epistaxis. - No current bleeding or scabbing observed in the nose. Hypotension. - Blood pressure noted to be 106/60, lower than usual readings. - Home blood pressure readings typically higher. - Currently taking losartan 12.5 mg once a day. - Advised to continue monitoring blood pressure at home. Follow-up - [facility] to check the wound next week. Patient was seen and examined with Dyan Mello CNP. History was confirmed and verified. Aguirre elements of the exam were also completed. Assessment and plan were reviewed and addended as needed. Agree with documentation above. [1] Past Medical History: Diagnosis Date A-fib (HCC) [...] mellitus (HCC) Ureteral calculus, left Visual impairment [2] Past Surgical History: Procedure Laterality Date CARDIOVERSION 2007 COLONOSCOPY 2011 COLONOSCOPY 05/27/2018 CYSTOSCOPY 01/2009 CYSTOSCOPY cystoscopy ureteroscopy,left ureteral calculus stricture CYSTOSCOPY 05/05/2023 NEUROMA SURGERY Right ID TOTAL HIP ARTHROPLASTY Left 03/29/2009 PROSTATECTOMY 1997 PYELOGRAM RETROGRADE UNI OR BI Right 05/05/2023 hydronephrosis ROTATOR CUFF REPAIR Left 04/2015 SKIN CANCER EXCISION Mid frontal scalp, SCC, Mohs Surgery 02/04/23 TOE SURGERY Right 1995 R hallux fused TOTAL HIP ARTHROPLASTY Right 12/18/2020 TUMOR EXCISION 1996 bladder cancer [3] Social History Tobacco Use Smoking status: Former Current packs/day: 0.00 Types: Cigarettes Quit date: 06/15/2001 Years since quittin.8 Smokeless tobacco: Never Tobacco comments: Ex-heavy cigarettes smoker (20-30/day) Vaping Use Vaping status: Never Used Substance Use Topics Alcohol use: Yes Alcohol/week: 14.0 standard drinks of alcohol Types: 14 Cans of beer per week Comment: .caffeine intake:Coffee, 3-4 cups per day. Drug use: Never [4] Family History Problem Relation Name Age of Onset Coronary artery disease Father Diabetes Maternal Grandmother Cancer Paternal Grandmother Melanoma Neg Hx [5] Allergies Allergen Reactions Amoxicillin Swelling Welts, facial swelling Welts, facial swelling Welts, facial swelling Bacitracin Neomycin Penicillins Other, Rash, Swelling and Angioedema Polymyxin B Wound Dressing Adhesive Rash Other Reaction(s): Rash documented in this encounter Plan of Treatment DateTypeDepartmentCare Team (Latest Contact Info)Leduhjjacfj82/06/2026 1:30 PM ESTOffice Visit [facility] [address] [id number] NameTypePriorityAssociated DiagnosesOrder ScheduleCT chest high resolution ImagingRoutine Centrilobular emphysema (HCC) Chronic cough Expected: 03/28/2025 (Approximate), Expires: 06/28/2025documented as of this encounter Visit Diagnoses Diagnosis Balance disorder- Primary Vertigo of central origin Frequent falls Congestive heart failure, NYHA class 2, unspecified congestive heart failure type (HCC) Centrilobular emphysema (HCC) Chronic cough Cough Laceration of scalp without foreign body, subsequent encounter Epistaxis documented in this encounter Additional Health Concerns AssessmentNoted TimePHQ-9 Depression Total Score: 2:00 PM EST documented as of this encounter Care Teams Team MemberRelationshipSpecialtyStart DateEnd Date Supa Reardon MD [address] [facility] [address] [place] [address] PCP - GeneralInternal Medicine11/04/22 Supa Reardon MD [address] [facility] [address] [place] [address] PCP - ACO Reach03/15/24 Monica Hook MD [address] [place] [address] Referring OksemtreyTqfjuwlhhku28/30/23 Jorje Ramirez MD [address] [facility] [place] [address] Referring BbponktumSehztta90/30/23 Bonita Ovalles MD [address] [facility] [address] [place] [address] Referring OxqvxsxymYxwrtragln42/30/23documented as of this encounter
--- NOTE | 2025-04-06 | CT_ITS ---
The [address] [address] Patient Name: FANI TAY MRN: [id number] date: 1935 Sex: M Assigned Patient Location: CT Current Patient Location: Accession/Order Number: [id number] Exam Date: 04/06/2025 13:15 Report Date: 04/07/2025 08:32 At the request of: ROSALINDA CARO Procedure: CT chest high res HIGH-RESOLUTION CT CHEST WITHOUT CONTRAST COMPARISON: Chest x-ray 12/04/2024 CLINICAL DATA: Chronic cough, shortness of breath and chest congestion. Centrilobular emphysema. Spiral axial unenhanced images were obtained through the chest. Images were reconstructed at 1 mm sections at 10 mm increments. Patient was also imaged in prone position with high-resolution technique. Images were reviewed using both narrow and wide window settings. This CT exam was performed using one or more following dose reduction techniques: Automated exposure control, adjustment of the mA and/or kV according to patient size, or use of iterative reconstruction technique. The heart is enlarged. No pericardial effusion is seen. Coronary artery disease is identified. There is calcification at the mitral annulus. There is a prosthetic aortic valve. The ascending aorta is mildly dilated with diameter 4.3 cm. There is plaque at the aorta and proximal great vessels. There are small nonpathologic lymph nodes. There are also calcified subcarinal granulomas on the right. Minor gynecomastia is seen. Minor endplate spurring is visualized at the spine. There is obstructive lung disease with airspace lucencies and subpleural blebs. No additional consolidation is noted. There is minor scarring or atelectasis. There is also minimal interstitial thickening. There is a trace amount of layering pleural fluid bilaterally, greater on the right. No pneumothorax is seen. There are bilateral lower lobe calcified granulomas. Limited cuts through the upper abdomen show splenic granulomas. There are couple left upper pole renal hypodensities suggesting cysts. One has some mural calcification. Additional atherosclerotic disease is visualized. CT/CT chest high res IMPRESSION: CARDIOMEGALY. MILDLY DILATED ASCENDING AORTA GRANULOMATOUS CHANGES. OBSTRUCTIVE LUNG DISEASE. MINOR ATELECTASIS AND/OR SCARRING, MINIMAL INTERSTITIAL THICKENING AND TINY PLEURAL EFFUSIONS. Impression dictated by: Cyn Llamas M.D. 04/07/2025 8:32 AM Dictation Location: [place] [address] Electronically authenticated by: [id number] Y Date: 04/07/2025 08:32
--- OUTSIDE RECORDS SUMMARY | 2025-04-06 12:59 | XMS_ITS | Clinical Summary ---
Author Organization [facility] Address [address] [place] [address] Phone Care Team Providers Care Repair Operator Name Role Phone Supa Reardon MD Primary Care Provider [phone] Allergies Active AllergyReactionsCriticalityNoted DateCommentsBacitracinUnknownLow 01/19/2019Beta-Blockers (Beta-Adrenergic Blocking Agts)Other12/12/2024 hypotension ZfvrlovxOblddov95/07/2019PenicillinsAngioedema,Other,Rash,Swelling,UnknownHigh 03/07/2014 Welts, facial swelling Welts, facial swelling Welts, facial swelling Welts, facial swelling Welts, facial swelling Welts, facial swelling Polymyxin FBjnqkXul08/07/2019 Medications MedicationSigDispense QuantityRefillsLast FilledStart DateEnd DateStatus pantoprazole (ProtoNix) 40 mg EC tablet Take 1 tablet (40 mg) by mouth.03/26/2020Active traMADol (Ultram) 50 mg tablet Take 1-2 tablets (50-100 mg) by mouth every 6 hours if needed.02/26/2023ctive warfarin (Coumadin) 5 mg tablet Take 2 tablets (10 mg) by mouth. Take as directed by [facility] 06/10/2018Active aspirin 81 mg EC tablet Take 1 tablet (81 mg) by mouth once daily.Active atorvastatin (Lipitor) 40 mg tablet Indications:Coronary artery disease, unspecified vessel or lesion type, unspecified whether angina present, unspecified whether [place] or transplanted heart,Pure hypercholesterolemiaTake 1 tablet (40 mg) by mouth once daily. 90 tablet 12:02 PM EDT/ctive cephalexin (Keflex) 500 mg capsule Take 1 capsule (500 mg) by mouth every 12 hours.5Active fluticasone (Flonase) 50 mcg/actuation nasal spray Administer 2 sprays into each nostril once daily.5Active jo-npr-CB-vit D-ofwajc-sawnitx (PreserVision AREDS 2 Plus MV) 200 mcg-15 mcg- 5 mg-1 mg capsule Take 1 capsule by mouth once daily.Active losartan (Cozaar) 25 mg tablet Indications:Congestive heart failure, NYHA class 2, unspecified congestive heart failure type (Multi),Essential (primary) hypertensionTake 0.5 tablets (12.5 mg) by mouth once daily. decrease 45 tablet ctive Active Problems ProblemNoted DateDiagnosed DateBeta-blockers hwtezeydhhnlfxl07/30/2025Mixed szsphzdacztgfy68/30/2025Long term (current) use of hgvyqxazxpivhp72/30/2025 Mitral xyegkitrzlcby20/30/2025MI 24.0-24.9, adult09/29/2023Former smoker 09/29/2023ulmonary bbkrhzjedicg45/23/2023Status post transcatheter aortic valve otfffffdblm56/23/6903Fbiuei52/16/2023AD (coronary artery disease)01/28/2023 Carcinoma in situ of ggapdxl9101/28/2023iverticulosis, nlhopxl7801/28/2023Malignant neoplasm of svgufvse19/16/2023Laryngopharyngeal srowpi8601/28/2023Lumbosacral spondylosis without krvvzhajfj41/16/2023Nonrheumatic aortic valve stenosis 01/28/2023ervical spondylosis without wousuurjcg78/23/2023HF (congestive heart failure), NYHA class II12/05/2022egeneration of lumbar intervertebral disc 12/05/2022Emphysema of lung12/05/2022Stage 2 chronic kidney biruizn7812/05/2022VD (peripheral vascular disease)12/05/2022alance kunmbzon68/19/2023ervicalgia 10/31/2022Vertigo of central fgycua7210/31/2022Musculoskeletal pain06/16/2019Foot pain06/16/2019Gout06/16/2019Essential (primary) qbfhinjmgfdv27/02/2020 Gastroesophageal reflux disease without iwdkjftvzxe90/27/2019Venous insufficiency (chronic) (peripheral)06/10/2019Chronic venous hypertension (idiopathic) with inflammation of left lower giyvudteh73/26/2019Personal history of other malignant neoplasm of skin01/11/2019Type 2 diabetes mellitus without ifhlstmfldda87/30/2019Chronic atrial qjphaoxwegvw08/15/2015 Resolved Problems ProblemNoted DateDiagnosed DateResolved DateHigh risk medication use04/18/2024 12/12/2024Permanent atrial mszbvnmopetr84Presence of prosthetic heart valvePure tmtdxahwjxtaurfxlezg52/23/2023 12/12/20246018Yvbhoecinxxyxfhmzpct42/15/201506/30/2025 Social History Tobacco UseTypesPacks/DayYears UsedDateSmoking Tobacco: FormerCigarettes Smokeless Tobacco: FormerChew Tobacco Cessation:Counseling Given: Not Answered Alcohol UseStandard Drinks/OgogBirimzhiAis72 (1 standard drink = 0.6 oz pure alcohol)Sex and Gender InformationValueDate RecordedSex Assigned at BirthNot on fileLegal IxqSyyw10/26/2022 9:02 AM ESTGender IdentityNot on fileSexual OrientationNot on file Last Filed Vital Signs Vital SignReadingTime TakenCommentsBlood Mofvjhlb31/46012/12/2024 3:44 PM EDT Vwogy1174/30/2025 3:44 PM EDTTemperature--Respiratory Rate--Oxygen Saturation-- Inhaled Oxygen Concentration--Nrecoz25.6 kg (160 lb)12/12/2024 3:44 PM EDTHeight 172.7 cm (5' 8 )12/12/2024 3:44 PM EDTBody Mass Index24.33012/12/2024 3:44 PM EDT Plan of Treatment DateTypeDepartmentCare Team (Latest Contact Info)Meufislozga92/30/2025 1:15 PM EDTAppointment [place] [address] [place] [address] 07/26/2025 9:20 AM ESTOffice Visit [address] [phone] Shay Ovalles MD [address] [facility] [address] [place] [address] Health MaintenanceDue DateLast DoneCommentsDiabetes: Hemoglobin A1C1936 Diabetes: Retinopathy Nyfgfssms06/15/1946Zoster Vaccines (1 of 2)1986RSV High Risk: (Elderly (60+) or Population) (1 - 1-dose 75+ series) 2011Creatinine Level, 02/24/2020Potassium Level , 02/24/2020Diabetes: Urine Protein Jelfsqnrw62/20/2025 11/02/2023Influenza Vaccine (#1), 05/14/2022, 03/28/2021, Additional history existsLipid Panel/OVID-19 Vaccine ( - season)02/13/20252517Trtjdwcnymvxos33/30/202510/30/2024, 04/03/2023, 02/26/2022, Additional history existsMedicare Annual Wellness Visit (AWV) , 05/14/2023, 11/28/2021, Additional history exists DTaP/Tdap/Td Vaccines (2 - Td or Tdap)/12/2023, 11/01/2012 Pneumococcal OwtjzqpBmbnujvvi03/04/2017, 10/02/2010Welcome to Medicare Visit Hfnzxmxkcsjg41/30/2024, 05/14/2023, 11/28/2021, Additional history existsHIB VaccinesAged OutNo longer eligible based on patient's age to complete this topic HPV VaccinesAged OutNo longer eligible based on patient's age to complete this topicHepatitis A VaccinesAged OutNo longer eligible based on patient's age to complete this topicHepatitis B VaccinesAged OutNo longer eligible based on patient's age to complete this topicIPV VaccinesAged OutNo longer eligible based on patient's age to complete this topicMeningococcal VaccineAged OutNo longer eligible based on patient's age to complete this topicRotavirus VaccinesAged Out No longer eligible based on patient's age to complete this topic Procedures Procedure NamePriorityDate/TimeAssociated DiagnosisCommentsTRANSTHORACIC ECHO (TTE) CCMTQRPJXdxqtum98/30/2024 2:24 PM EDT 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 RENAL FUNCTION MEZIDSenwbyt84/19/2020 12:09 AM EDT from Last 3 Months or Most Recently Relevant to Health Maintenance Results * TRANSTHORACIC ECHO (TTE) COMPLETE (04/13/2024 2:24 PM EDT)ComponentValueRef RangeTest MethodAnalysis TimePerformed AtPathologist SignatureAV mn grad9.0 mmHgSYNGOAV pk vel2.02m/sSYNGOLV Biplane EF30%SYNGOLVOT diam2.70cmSYNGOLV EF40 %RYUINSAND52.1dmQgZZEGSUJKIk1.97cmSYNGOAortic Valve Area by Continuity of Peak Velocity2.42by5EUWCGBP pk grad16.3mmHgSYNGOAortic Valve Area by Continuity of VTI2.60qq1CVFRFGZ A4C EF35.9SYNGOSpecimen (Source)Anatomical Location / LateralityCollection Method / VolumeCollection TimeReceived Time04/13/2024 1:47 PM EDT Narrative SYNGO - 04/13/2024 4:44 PM EDT ?[address], Suite [facility], [place] [address] ? TRANSTHORACIC ECHOCARDIOGRAM REPORT Patient Name: ?FANI TAY ?Reading Physician: ?[id number] Shay ? Josr MD, FACC Study Date: ?04/13/2024 ?Ordering Provider: ?[id number] SHAY Márquez ? OVALLES MRN/PID: ? [id number] ?Fellow: Accession#: ?[id number] ?Nurse: Date of /Age: 12 1935 / 88 years Metalizing Machine Operator: ?Karly Lin ? RDCS, RVT Gender: ?M ? Additional Staff: Height: ?175.26 cm ? Admit Date: Weight: ?75.75 kg ?Admission Status: BSA / BMI: ? 1.91 m2 / 24.66 kg/m2 Department Location: ??[facility] ? [place] Blood Pressure: 134 /76 mmHg Study Type: ?TRANSTHORACIC ECHO (TTE) COMPLETE Diagnosis/ICD: 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; Presence of ? prosthetic heart valve-Z95.2 Indication: ?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, Atrial Fibrillation, CAD, CHF, COPD, ? Diabetes, HTN, Hyperlipidemia, 2/6 Systolic Murmur, Former ? Smoker, Pulmonary HTN, PVD, CKD-Stage II, Venous Insufficiency, ? Bladder and Prostate Cancer CPT Codes: ? Echo Complete w Full Doppler-[id number] Study Detail: The following Echo studies were performed: 2D, M-Mode, Doppler and ?color flow. PHYSICIAN INTERPRETATION: Left Ventricle: Left ventricular [...] is a TAVR in position with no stenosisor significant regurgitation. Mitral Valve: The mitral valve is moderately thickened. There is moderate mitral annular calcification. There is mild to moderate mitral valve regurgitation. Tricuspid Valve: The tricuspid valve is structurally normal. There is mild tricuspid regurgitation.Estimated RVSP 49 mmHg consistent with moderate pulmonary [...] were seen. QUANTITATIVE DATA SUMMARY: 2D MEASUREMENTS: ?Normal Ranges: Ao Root d: ? 3.00 cm ?(2.0-3.7cm) LAs: ? 6.70 cm ?(2.7-4.0cm) RVIDd: ? 3.74 cm ?(0.9-3.6cm) IVSd: ?0.97 cm ?(0.6-1.1cm) LVPWd: ? 0.87 cm ?(0.6-1.1cm) LVIDd: ? 6.97 cm ?(3.9-5.9cm) LVIDs: ? 5.73 cm LV Mass Index: ?? 150.1 g/m2 LV % FS ?17.8 % LV SYSTOLIC FUNCTION BY 2D PLANIMETRY (MOD): ? Normal Ranges: EF-A4C View: 36 % (>=55%) EF-A2C View: ?22 % EF-Biplane: ? 30 % EF-Visual: ?40 % LV EF Reported: 40 % LV DIASTOLIC FUNCTION: ?Normal Ranges: MV Peak E: ? 1.34 m/s (0.7-1.2 m/s) MITRAL VALVE: ?Normal Ranges: MV Vmax: 1.21 m/s (<=1.3m/s) MV peak P.9 mmHg (<5mmHg) MV mean P.0 mmHg (<48mmHg) MITRAL INSUFFICIENCY: ? Normal Ranges: MR Vmax: ?555.33 cm/s AORTIC VALVE: ?Normal Ranges: AoV Vmax: 2.02 m/s (<=1.7m/s) AoV Peak P.3 mmHg (<20mmHg) AoV Mean PG: ? 9.0 mmHg ??(1.7-11.5mmHg) LVOT Max Nabeel: 0.95 m/s (<=1.1m/s) AoV VTI: ? 35.80 cm ??(18-25cm) LVOT VTI: ?16.70 cm LVOT Diameter: ? 2.70 cm ?? (1.8-2.4cm) AoV Area, VTI: ? 2.67 cm2 ??(2.5-5.5cm2) AoV Area,Vmax: ? 2.69 cm2 ??(2.5-4.5cm2) AoV Dimensionless Index: 0.47 AORTIC INSUFFICIENCY: AI Vmax: ? 3.15 m/s AI Half-time: ??489 msec AI Decel Rate: 245.67 cm/s2 TRICUSPID VALVE/RVSP: ?Normal Ranges: Peak TR Velocity: ? 3.12 m/s RV Syst Pressure: 42 mmHg (< 30mmHg) PULMONIC VALVE: ? Normal Ranges: PV Max Nabeel: ? 0.8 m/s ?? (0.6-0.9m/s) PV Max PG: ?2.6 mmHg PIEDV: ?2.54 m/s PADP: ? 28.9 mmHg [id number] Shay Ovalles MD, [facility] Electronically signed on 04/13/2024 at 4:44:51 PM Final Procedure Note Shay Ovalles MD - 04/13/[address], [address] [place] [address] TRANSTHORACIC ECHOCARDIOGRAM REPORT Patient Name: FANI Caldwell Physician: [id number] Ovalles MD,[facility] Study Date: 04/13/2024 Ordering Provider: [id number] OVALLES MRN/PID: [id number] Fellow: Nurse: Date of /Age: 12 1935 / 88 years Metalizing Machine Operator: Ngozi ANDRADE RVT Gender: M Additional Staff: Height: 175.26 cm Admit Date: Weight: 75.75 kg Admission Status: BSA / BMI: 1.91 m2 / 24.66 kg/m2 Department Location: [facility] Blood Pressure: 134 /76 mmHg Study Type: TRANSTHORACIC ECHO (TTE) COMPLETE Diagnosis/ICD: 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; 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, Atrial Fibrillation, CAD, CHF,COPD, Diabetes, HTN, Hyperlipidemia, 2/6 Systolic Murmur,Former Smoker, Pulmonary HTN, PVD, CKD-Stage II, VenousInsufficiency, Bladder and Prostate Cancer CPT Codes: Echo Complete w Full Doppler-[id number] Study Detail: The following Echo studies were [...] mmHg PIEDV: 2.54 m/s PADP: 28.9 mmHg [id number] Shay Ovalles MD, [facility] Electronically signed on 04/13/2024 at 4:44:51 PM Final Authorizing ProviderResult TypeResult StatusHamarcie Ovalles [facility]IATIONV ECHO PROCEDURESFinal ResultPerforming OrganizationAddressCity/State/ZIP CodePhone Number SYNGO * (ABNORMAL) Renal Function Panel (03/03/2020 12:09 AM EDT)ComponentValueRef RangeTest MethodAnalysis TimePerformed AtPathologist EpqxoajirTnzaoxn377(H)74 - 99 mg/dLW[facility]EN [facility] BQDFqhaqu021152 - 145 mmol/[facility] LABPotassium3.53.5 - 5.3 mmol/[facility] ANWUmisighz375(H)98 - 107 mmol/[facility] HBMKwdgqfndrat7190 - 32 mmol/[facility] LABAnion Ikm0742 - 20 mmol/[facility] LABUrea Vmhlgube567 - 23 mg/dL [facility] LABCreatinine0.700.50 - 1.30 mg/dLWARREN STATE HOSPITAL LABGLOMERULAR FILTRATION RATE- NON >60>60 mL/min/1.54e2JEDOW LABGLOMERULAR FILTRATION RATE- >60>60 mL/min/1.13o8DDPOP LABComment: CALCULATIONS OF ESTIMATED GFR ARE PERFORMED USING THE MDRD STUDY EQUATION FOR THE IDMS-TRACEABLE CREATININE METHODS. CLIN CHEM 2007;53:766-72 Calcium7.6(L)8.6 - 10.6 mg/dLWARREN STATE HOSPITAL LABPhosphorus2.52.5 - 4.9 mg/dLWARREN STATE HOSPITAL LAB Comment: The performance characteristics of phosphorus testing in heparinized plasma have been validated by the individual laboratory site where testing is performed. Testing on heparinized plasma is not approved by the FDA; however, such approval is not necessary. Albumin2.9(L)3.4 - 5.0 g/dLWARREN STATE HOSPITAL LABSpecimen (Source)Anatomical Location / LateralityCollection Method / VolumeCollection TimeReceived Time03/03/2020 12:09 AM EDT03/03/2020 12:58 AM EDT Narrative Authorizing ProviderResult TypeResult StatusJuan Dangelo PRODUCTION SHIFT SUPERVISOR-CNPLAB BLOOD ORDERABLESFinal ResultPerforming OrganizationAddressCity/State/ZIP CodePhone Number [facility] LAB from Last 3 Months or Most Recently Relevant to Health Maintenance Insurance * Guarantor: Fani Tay TypeRelation to PatientDate of BirthPhone Billing AddressPersonal/FcxuukHxin08/ [address] [place] [address] Care Teams Team MemberRelationshipSpecialtyStart DateEnd Supa Reardon MD [address] [place] [address] [facility] - [facility]02/24/23
--- OUTSIDE RECORDS SUMMARY | 2025-04-06 12:59 | XMS_ITS | Clinical Summary ---
Author Organization [facility] Address [address] [place] [address] Care Team Providers Care Environment Artist Name Role Phone Unavailable Primary Care Provider Unavailabl e Social History Tobacco UseTypesPacks/DayYears UsedDateSmoking Tobacco: Never AssessedSex and Gender InformationValueDate RecordedSex Assigned at BirthNot on fileLegal Sex Male12/12/2021 12:27 AM EDTGender IdentityNot on fileSexual OrientationNot on file Plan of Treatment Health MaintenanceDue DateLast DoneCommentsMedicare Annual Wellness (AWV) 1935Depression Bkyeyfstx12/15/1948Adult Bjxxpwa2305/29/1958Pneumococcal Vaccine: 50+ Years (1 of 1 - PCV)1986Zoster Vaccines (1 of 2)1986 Fall Risk Tbkusgoku13/15/2001COVID-19 Vaccine (1 - season)2025 Influenza Vaccine (#1)2025HIB VaccinesAged OutNo longer eligible based on patient's age to complete this topicHPV VaccinesAged OutNo longer eligible based on patient's age to complete this topicIPV VaccinesAged OutNo longer eligible based on patient's age to complete this topicMeningococcal B VaccineAged OutNo longer eligible based on patient's age to complete this topicMeningococcal VaccineAged OutNo longer eligible based on patient's age to complete this topic Rotavirus VaccinesAged OutNo longer eligible based on patient's age to complete this topic Insurance
--- OUTSIDE RECORDS SUMMARY | 2025-04-06 12:59 | XMS_ITS | Clinical Summary ---
Author Organization [facility] Address [id number] [place] [address] Care Team Providers Care Aircraft Cleaning Supervisor Name Role Phone KorinaLauren carney BENJI-PLATE CORRECTOR Primary Care Provider [phone] Allergies Active AllergyReactionsCriticalityNoted DateCommentsAmoxicillinSwellingHigh 03/07/2014 Welts, facial swelling Welts, facial swelling Ebigiexkag32/07/0925Qikgyjqw53/07/2019Polymyxin B001/19/2019 Medications MedicationSigDispense QuantityRefillsLast FilledStart DateEnd DateStatus gabapentin (NEURONTIN) 100 mg capsule Take 100 mg by mouth 3 (three) times a day.11/21/2019Active warfarin (COUMADIN) 5 mg tablet 1 to 1- 1/2 tablets per day as directed by iupbcswqw25/26/2020Active pantoprazole (PROTONIX) 40 mg EC tablet Take 40 mg by mouth daily.03/26/2020Active gemfibroziL (LOPID) 600 mg tablet Take 600 mg by mouth daily.01/30/2020Active acetaminophen (TYLENOL) 325 mg tablet Take 2 tablets by mouth nightly.Active meloxicam (MOBIC) 15 mg tablet Take 15 mg by mouth daily.Active meclizine HCl (MECLIZINE ORAL) Take by mouth See Admin Instructions. As directedActive Family History Medical HistoryRelationNameCommentsHeart diseaseFatherRheumatic feverFather DepressionMotherHeart diseaseMotherOtherMotherenlarged heartRelationNameStatus CommentsFatherDeceasedMotherAlive Social History Tobacco UseTypesPacks/DayYears UsedDateSmoking Tobacco: MbiplzJilfyiggog423 06/15/1980 - 06/15/2003Smokeless Tobacco: NeverAlcohol UseStandard Drinks/Week CommentsNever0 (1 standard drink = 0.6 oz pure alcohol)AUDIT-CAnswerDate RecordedQ1: How often do you have a drink containing alcohol?Never04/05/2020Q2: How many drinks containing alcohol do you have on a typical day when you are drinking?Not asked04/05/2020Q3: How often do you have six or more drinks on one occasion?Never04/05/2020ChildcareAnswerDate HfvzqyltCeuhehhhmVqjiuzw03/20/2020 EmploymentAnswerDate IljrbkbyDrqxwcikztMfefnbn39/20/2020Purpose - LifeAnswerDate RecordedPurpose and direction in xhzpUrrljjb39/11/2021Sex and Gender Information ValueDate RecordedSex Assigned at BirthNot on fileLegal ZpmNytb3001/18/2015 11:52 AM EDTGender IdentityNot on fileSexual OrientationNot on file Last Filed Vital Signs Vital SignReadingTime TakenCommentsBlood Iutjnnnx105/8404/05/2020 10:11 AM EDT Jazeh662104/05/2020 10:11 AM EDTTemperature--Respiratory Rate--Oxygen Saturation-- Inhaled Oxygen Concentration--Laxqfz08.6 kg (186 lb 9.6 oz)04/05/2020 10:10 AM PHHCxusem956.2 cm (5' 7 )04/05/2020 10:10 AM EDTBody Mass Index29.231 10:10 AM EDT Plan of Treatment Health MaintenanceDue DateLast DoneCommentsDepression Clpxzbjeu21/15/1948Tobacco Ujlgtyuhf98/15/1948DTaP,Tdap and Td Vaccines (1 - Tdap)1955Zoster (Shingles) Vaccine (1 of 2)1986Fall Risk Sqbnfuqey77/15/2001Influenza Jsmupin00/01/991208/, 05/01/2017, 04/30/2017, Additional history exists Medical Devices Not on file Insurance Care Teams Team MemberRelationshipSpecialtyStart DateEnd Date Lauren Hui APRN-KENYA [address] [place] [address] PCP - GeneralFamily Yopwnusk79/20/20
--- OUTSIDE RECORDS SUMMARY | 2025-04-06 12:59 | XMS_ITS | Encounter Summary ---
Author Organization [facility] Address [address] [facility] [place] [address] Care Team Providers Care [place] Name Role Phone Supa Reardon MD Primary Care Provider [phone] Monica Hook MD Unavailable Jorje Ramirez MD Unavailable [phone] Bonita Ovalles MD Unavailable Supa Reardon MD Unavailable [phone] Encounter Details DateTypeDepartmentCare Team (Latest Contact Info)Ttvusahhqmz66/17/2025Orders Only [facility] [place] [facility] [address] [facility] [address] [place] [phone] [place] [address] [place] [address] Social History Tobacco UseTypesPacks/DayYears UsedDateSmoking Tobacco: FormerCigarettesQuit: 06/15/2001Smokeless Tobacco: Never Comments:Ex-heavy cigarettes smoker (20-30/day) Alcohol UseStandard Drinks/WmraVgbpkxnoIbq24 (1 standard drink = 0.6 oz pure alcohol).caffeine intake:Coffee, 3-4 cups per day.PHQ-2AnswerDate Recorded Patient Health Questionnaire-2 Ssgcf161Sex and Gender InformationValue Date RecordedSex Assigned at BirthNot on fileLegal OsoFcvm6008/27/2022 7:09 PM EDT Gender IdentityNot on fileSexual OrientationNot on fileOccupationIndustryJob Start DateJob 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 storage center manager at [facility] HospitalNot on fileNot on fileNot on filedocumented as of this encounter Plan of Treatment DateTypeDepartmentCare Team (Latest Contact Info)Ztpdmyriwqt30/06/2026 1:30 PM ESTOffice Visit [facility] [place] [facility] [address] [place] [address] documented as of this encounter Visit Diagnoses Not on filedocumented in this encounter Additional Health Concerns AssessmentNoted TimePHQ-9 Depression Total Score: 2:00 PM EST documented as of this encounter Care Teams Team MemberRelationshipSpecialtyStart DateEnd Date Supa Reardon MD [address] [place] [address] PCP - GeneralInternal Medicine11/04/22 Supa Reardon MD [address] [place] [address] PCP - ACO Reach03/15/24 Monica Hook MD [address] [place] [address] Referring MakzyxuaqBuskisqviiw76/30/23 Jorje Ramirez MD [address] [place] [address] Referring YvnlmeohqNmfxhsb72/30/23 Bonita Ovalles MD [address] [place] [address] Referring EhlgpvssgPnibedtvel03/30/23documented as of this encounter
--- OUTSIDE RECORDS SUMMARY | 2025-04-06 12:59 | XMS_ITS | Clinical Summary ---
Author Organization [facility] Address [address], [address] [place] [address] Care Team Providers Care Patient Transport Orderly Name Role Phone Trey Bowman DO Primary Care Provider [phone] Allergies Active AllergyReactionsCriticalityNoted DateCommentsAmoxicillinSwellingHigh 03/07/2014 Welts, facial swelling Celvybizqz01/07/9059Spthdwdx74/07/2019Polymyxin B001/19/2019 Medications MedicationSigDispense QuantityRefillsLast FilledStart DateEnd DateStatus gabapentin (NEURONTIN) 100 MG capsule Take 100 mg by mouth 3 times daily.Active gemfibrozil (LOPID) 600 MG tablet Take 600 mg by mouth 2 times daily (before meals)Active pantoprazole (PROTONIX) 40 MG tablet Take 40 mg by mouth dailyActive meloxicam (MOBIC) 7.5 MG tablet Take 7.5 mg by mouth dailyActive acetaminophen (TYLENOL) 325 MG tablet Take 650 mg by mouth every 6 hours as needed for PainActive warfarin (COUMADIN) 5 MG tablet 1 to 1- 1/2 tablets per day as directed by physician 145 tablet Active furosemide (LASIX) 20 MG tablet Take 40 mg by mouth dailyActive potassium chloride (KLOR-CON) 20 MEQ packet Take 20 mEq by mouth 2 times dailyActive Active Problems ProblemNoted DateDiagnosed DateMusculoskeletal pain06/16/2019Hypertensive jvlbuxzj94/02/5166Awly37/02/2020Foot pain06/16/2019Gastro-esophageal reflux disease without vzqihgwsvsf60/27/2019Long term (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 06/10/2019Venous insufficiency (chronic) (peripheral)06/10/2019Chronic venous hypertension (idiopathic) with inflammation of left lower ntaxnffkj72/26/2019 Type 2 diabetes mellitus without zamzwxrkstsat41/30/2019Personal history of other malignant neoplasm of skin01/11/2019Tobacco abuse01/11/2019 Zhmbvosenoxoqkcjbxew43/15/2015Chronic atrial hxhccvemxghd81/15/2015 Immunizations ImmunizationAdministration DatesNext DueInfluenza Virus Vzdjrhs3802/13/2007 Influenza, FLUAD, (age 65 y+), IM, Trivalent PF, 0.5mL03/03/2018Influenza, FLUARIX, FLULAVAL, FLUZONE (age 6 mo+) and AFLURIA, (age 3 y+), Quadv PF, 0.5mL 04/30/2017Influenza, FLUZONE High Dose, (age 65 y+), IM, Trivalent PF, 0.5mL 05/01/2017Pneumococcal, PCV-13, PREVNAR 13, (age 6w+), IM, 0.5mL05/18/2017 Pneumococcal, PPSV23, PNEUMOVAX 23, (age 2y+), SC/IM, 0.5mL10/02/2010 Family History Medical HistoryRelationNameCommentsOtherFatherheartRelationNameStatusComments FatherDeceasedMotherDeceased Social History Tobacco UseTypesPacks/DayYears UsedDateSmoking Tobacco: FormerCigarettesCigars Smokeless Tobacco: NeverAlcohol UseStandard Drinks/WeekCommentsYes0 (1 standard drink = 0.6 oz pure alcohol)Sex and Gender InformationValueDate RecordedSex Assigned at BirthNot on fileLegal ToyHcnz8612/27/2018 9:34 AM EDTGender Identity Not on fileSexual OrientationNot on file Last Filed Vital Signs Vital SignReadingTime TakenCommentsBlood Sgbtqsew878/7808 11:10 AM EDT Ojkwm54667 11:10 AM EDTTemperature--Respiratory Rate--Oxygen Saturation 95%02/02/2020 11:10 AM EDTInhaled Oxygen Concentration--Aorfho97.6 kg (180 lb) 02/02/2020 11:10 AM WHCPvunvo216.3 cm (5' 9 )02/02/2020 11:10 AM EDTBody Mass Index26.58002/02/2020 11:10 AM EDT Plan of Treatment Not on file Insurance Care Teams Team MemberRelationshipSpecialtyStart DateEnd Date Trey Bowman DO [address] [place] [address] PCP - GeneralInternal Medicine06/16/19
--- OUTSIDE RECORDS SUMMARY | 2025-04-06 12:59 | XMS_ITS | Clinical Summary ---
Author Organization [facility] Address [address] [place] [address] Care Team Providers Care Rag Willow Operator Name Role Phone Trey Bowman Primary Care Provider + Allergies Active AllergyReactionsCriticalityNoted DateCommentsAmoxicillinSwelling 03/07/2014 Medications MedicationSigDispense QuantityRefillsLast FilledStart DateEnd DateStatus gemfibrozil (LOPID) 600 mg tablet Take 600 mg by mouth twice daily before meals.Active pantoprazole (PROTONIX) 40 mg grps Take 40 mg by mouth once daily.Active meloxicam (MOBIC) 15 mg tablet Take 15 mg by mouth once daily.Active warfarin (COUMADIN) 5 mg tablet Take 1 tablet by mouth daily as directed. 7.5mg on Thursday, Thursday, Thursday, and Thursday. 10 mg on Thursday, and Thursday. 145 tablet Active Active Problems ProblemNoted DateDiagnosed DateChronic atrial gkmaozocvlzx01/15/2015 Szeblfmwbirlrbelnwfr84/15/2015 Family History Medical HistoryRelationCommentsbipolar [Other]Daughter 2HeartFatherrheumatic feverHeartMotherRelationStatusCommentsDaughter 1AliveDaughter 2FatherDeceased (Age 37)MotherDeceased Social History Tobacco UseTypesPacks/DayYears UsedDateSmoking Tobacco: FormerCigarettes 06/15/1958 - 06/15/2003PipeCigarsSmokeless Tobacco: NeverAlcohol UseStandard Drinks/WeekCommentsYes0 (1 standard drink = 0.6 oz pure alcohol)beer or glass of wine daily with dinnerArea Deprivation IndexAnswerDate RecordedNational Score (1-100), lower number is lower riskNot on file05/23/2020State Score (1-10), lower number is lower riskNot on file05/23/2020Data from: https://www.neighborhoodatlas.medicine.[facility]/. Last address used for calculationNot on file05/23/2020Sex and Gender InformationValueDate RecordedSex Assigned at BirthNot on fileLegal GmfIwfb9402/23/2014 11:13 AM EDTGender Identity Not on fileSexual OrientationNot on file Last Filed Vital Signs Vital SignReadingTime TakenCommentsBlood Ncyqogme051/9006 9:56 AM EDT Kpruf627811/17/2017 9:56 AM BPJUipgrhzjqwx85.8 ??C (98.3 ??F)10/27/2014 9:12 AM EDTRespiratory Btor0990 9:56 AM EDTOxygen Chamnwqcbf07%11/17/2017 9:56 AM EDTInhaled Oxygen Concentration--Ubgcgb89.7 kg (186 lb 12.8 oz)11/17/2017 9:56 AM IQCQiuelr056.3 cm (5' 9 )11/12/2016 9:48 AM EDTBody Mass Index27.59 11/12/2016 9:48 AM EDT Plan of Treatment Health MaintenanceDue DateLast DoneCommentsAnxiety Ytpugxxlc02/15/1954epression Dqtjsnioh34/15/1954DTaP,Tdap,Td Vaccine (1 - Tdap)1955Diabetes Screening 1981Pneumococcal Vaccine: 50+ (1 of 1 - PCV)1986Shingrix Vaccine (1 of 2)1986RSV Vaccine (1 - 1-dose 75+ series)2011dvance Directive Sfwqioibkd65/01/2025ovid-19 Vaccine (1 - 2024- season)2025Influenza Vaccine (#1)[address]25 [place] [address] Care Teams Team MemberRelationshipSpecialtyStart DateEnd Date Trey Bowman DO [address] [place] [address] PCP - GeneralInternal Medicine02/23/14
--- OUTSIDE RECORDS SUMMARY | 2025-04-06 13:00 | XMS_ITS | Clinical Summary ---
Author Organization [facility] Address [address] [place] [address] Care Team Providers Care Manager Diabetes Name Role Phone Supa Reardon MD Primary Care Provider [phone] Monica Hook MD Unavailable [phone] Jorje Ramirez MD Unavailable [phone] Bonita Ovalles MD Unavailable [phone] Supa Reardon MD Unavailable [phone] Allergies Active AllergyReactionsCriticalityNoted DateCommentsAmoxicillinSwellingHigh 03/07/2014 Welts, facial swelling Welts, facial swelling Welts, facial swelling BfiuqwigqtRqg89/07/7837ScpghtqtPyz82/07/2019PenicillinsOther,Rash,Swelling, CjonjigvptSdn46/23/2014Polymyxin BLow01/19/2019Wound Dressing AdhesiveRashLow 12/21/2023 Other Reaction(s): Rash Medications MedicationSigDispense QuantityRefillsLast FilledStart DateEnd DateStatus aspirin 81 MG EC tablet Take 81 mg by mouth in the morning.Active atorvastatin (Lipitor) 40 MG tablet Indications:Coronary artery disease involving [place] coronary artery of [place] heart without angina pectorisTake 1 tablet (40 mg) by mouth in the morning. 60 tablet 07/20/2023ctive Multiple Vitamins-Minerals (PRESERVISION AREDS 2 PO) Take by mouthActive warfarin (Coumadin) 5 MG tablet Indications:Coronary artery disease involving [place] heart without angina pectoris, unspecified vessel or lesion typeTake 2 tablets (10 mg) by mouth at bedtime 180 tablet ctive Magnesium Oxide, Elemental, 400 MG tablet Indications:HypomagnesemiaTake 1 tablet by mouth Daily 90 tablet 5Active pantoprazole (ProtoNix) 40 MG EC tablet Indications:Gastroesophageal reflux disease without esophagitisTake 1 tablet (40 mg) by mouth in the morning. Take before meals. 90 tablet 5Active Nutritional Supplements (ADULT NUTRITIONAL SUPPLEMENT PO) Indications:Redi Mind Cognitive SupplementTake 1 tablet by mouth Daily (Redi Mind Cognitive Supplement)Active Melatonin 10 MG capsule Take 1 tablet by mouth at bedtimeActive sertraline (Zoloft) 25 MG tablet Indications:Mixed anxiety and depressive disorderTake 1 tablet (25 mg) by mouth Daily 90 tablet /5Active meclizine (Antivert) 12.5 MG tablet Indications:Vertigo of central originTake 1 tablet (12.5 mg) by mouth 3 (three) times a day as needed for dizziness or nausea 30 tablet 6Active losartan (Cozaar) 25 MG tablet Indications:Congestive heart failure, NYHA class 2, unspecified congestive heart failure type (HCC)Take 0.5 tablets (12.5 mg) by mouth Daily5Active albuterol HFA (Ventolin HFA) 90 mcg/act inhaler Indications:Centrilobular emphysema (HCC)Inhale 2 puffs every 6 (six) hours if needed for wheezing or shortness of breath Do not use at sametime as Tramadol 8 g Discontinued(Therapy completed) losartan (Cozaar) 25 MG tablet Indications:Congestive heart failure, NYHA class 2, unspecified congestive heart failure type (HCC)Take 1 tablet (25 mg) by mouth Daily 30 tablet Discontinued(Reorder) Zeaxanthin powder Take 1 capsule by mouth in the morning.03/28/2025Discontinued(Therapy completed) fluticasone (Flonase) 50 MCG/ACT nasal spray 2 sprays in the morning.Discontinued(Therapy completed) meclizine (Antivert) 12.5 MG tablet Indications:Vertigo of central originTake 1 tablet (12.5 mg) by mouth 3 (three) times a day as needed for dizziness or nausea 30 tablet Discontinued(Reorder) Active Problems ProblemNoted DateDiagnosed DateHistory of TIA (transient ischemic attack) 11/20/2024Nonrheumatic mitral valve /13/2024History of kidney wjilvk5911/11/20237108Hpfupifyinj01/30/2023S/P aortic valve xdrfpdctvte67/23/2023 History of gout04/06/2023Mixed pvxvniumbfkqhw22/23/2023ulmonary hypertension 04/06/2023Malignant neoplasm of dxrkakiq52/16/2023Lumbosacral spondylosis without /16/2023Laryngopharyngeal hxbfcd6901/28/2023iverticulosis, mrwmlfs5701/28/2023arcinoma in situ of xhoaxrq6701/28/2023oronary artery disease involving [place] coronary artery of [place] heart without angina pectoris 01/28/20235370Qhywat33/16/2023ervical spondylosis without mmewesybtj30/23/2023HF (congestive heart failure), NYHA class II12/05/2022egeneration of lumbar intervertebral disc12/05/2022entrilobular foiyfnmdz94/23/2023VD (peripheral vascular disease)12/05/2022Vertigo of central sbqsvp7810/31/2022alance disorder 10/31/2022astroesophageal reflux disease without mxxbyymgqok74/27/2019Venous insufficiency (chronic) (peripheral)06/10/2019Chronic venous hypertension (idiopathic) with inflammation of left lower lavajbkpp82/26/2019Tobacco abuse 01/11/2019Chronic atrial qdvjdsnjtlda29/15/2015 Resolved Problems ProblemNoted DateDiagnosed DateResolved DateType 2 diabetes mellitus with peripheral artery pbnahle38 Encounters DateTypeDepartmentCare GdvxUclljjptjor88/17/2025Orders Only [facility] [address] [place] [phone] Rubio Crooks MD 03/28/2025 11:00 AM EDTOffice Visit [facility] [address] [place] [phone] Supa Reardon MD Balance disorder (Primary Dx); Vertigo of central origin; Frequent falls; Congestive heart failure, NYHA class 2, unspecified congestive heart failure type (HCC); Centrilobular emphysema (HCC); Chronic cough; Laceration of scalp without foreign body, subsequent encounter; Bwwwtxequ61/14/6398Qbwzwk49/08/2025[facility]phone [facility] [address] [place] [phone] Maritza Hannah Appt Brhkaexd64/22/2025Patient Outreach [facility] [place] [address] Ewa Blum MA 03/02/2025linisync Result Encounter [facility] External Department Unsolicited Provider, Generic External Data 02/17/2025Telephone [facility] [address] [place] [phone] Fernando Nascimento MA Fxylypb4002/16/2025Orders Only [facility] [address] [place] [address] Unallocated, Nomkarla Lam MD 02/01/2025 3:30 PM EDTOffice Visit [facility] [address] [place] [address] Moises Gomez, CAR TRACER Chronic systolic congestive heart failure, NYHA class 2 (HCC) (Primary Dx); Throat congestion; Moderate major depression (HCC)02/01/2025amboo flowsheet [facility] [address] [place] [phone] Moises Gomez CAR TRACER 02/01/20257644Jsegzh21/28/2025[facility] [address] [place] [address] Moises Gomez, CAR TRACER ALL BASIC METABOLIC PANEL, ALL GJQVPMEQG38/28/2025linisync Result Encounter [facility] External Department Unsolicited Moises Gomez NP from Last 3 Months Immunizations ImmunizationAdministration DatesNext DueInfluenza, High Dose Seasonal, Preservative Free05/14/2022Influenza, High-dose Seasonal, Quadrivalent, Preservative Free03/28/2021Influenza, Seasonal, Quadrivalent, Adjuvanted 05/14/2023Influenza, seasonal, intradermal, preservative free05/18/2015, 04/08/2013Pneumococcal Conjugate PCV 13107/19/2016Pneumococcal Polysaccharide HUNQ4377Td (adult), 5 Lf tetanus toxoid, preservative free, adsorbed 11/01/2012Tdap12/20/2023 Family History Medical HistoryRelationNameCommentsCoronary artery diseaseFatherDiabetesMaternal GrandmotherCancerPaternal GrandmotherMelanomaNeg HxRelationNameStatusComments FatherMaternal GrandmotherPaternal Grandmother Social History Tobacco UseTypesPacks/DayYears UsedDateSmoking Tobacco: FormerCigarettesQuit: 06/15/2001Smokeless Tobacco: Never Comments:Ex-heavy cigarettes smoker (20-30/day) Alcohol UseStandard Drinks/LugcPleqdfkcKoi79 (1 standard drink = 0.6 oz pure alcohol).caffeine intake:Coffee, 3-4 cups per day.PHQ-2AnswerDate Recorded Patient Health Questionnaire-2 Pqdlo970Sex and Gender InformationValue Date RecordedSex Assigned at BirthNot on fileLegal VkiGhfv6208/27/2022 7:09 PM EDT Gender IdentityNot on fileSexual OrientationNot on fileOccupationIndustryJob Start DateJob 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 CenterNot on fileNot on fileNot on file Last Filed Vital Signs Vital SignReadingTime TakenCommentsBlood Cscetoqs249/6003/28/2025 11:23 AM EDT Lchnx046103/28/2025 11:23 AM VIATriuvnehbkv60.3 ??C (97.3 ??F)04/06/2024 2:40 PM EDTRespiratory Zkqt004510/04/2024 1:05 PM EDTOxygen Pemvrucqnt63%03/28/2025 11:23 AM EDTInhaled Oxygen Concentration--Bwrzcz64.2 kg (157 lb)03/28/2025 11:23 AM JRIEwygpv138.3 cm (5' 9 )03/28/2025 11:23 AM EDTBody Mass Index23.181 11:23 AM EDT Plan of Treatment DateTypeDepartmentCare Team (Latest Contact Info)Iumdtsgboid11/06/2026 1:30 PM ESTOffice Visit [facility] [address] [place] [address] Health MaintenanceDue DateLast DoneCommentsInfluenza Vaccine (#1)02/13/2025 05/14/2023, 05/14/2022, 03/28/2021, Additional history existsPneumococcal Vaccine: 65+ AmgwtYamejdalt70/04/2017, 10/02/2010 Procedures Procedure NamePriorityDate/TimeAssociated DiagnosisCommentsTRANSFERRINRoutine 03/02/2025 1:34 PM EDT VITAMIN L44Cowmaht86/18/2025 1:34 PM EDT ALL FOLIC SYQELrndikh85/18/2025 1:34 PM EDT [facility] ELDFYDKNSxeydtu64/18/2025 1:34 PM EDT METRO IRON AND UMRLApotuzf67/18/2025 1:34 PM EDT ALL AJSEbnmrdx23/18/2025 1:34 PM EDT [facility] CMP (CMP) (FOR REMOTE [facility] USE)Csjxyks5703/02/2025 1:34 PM EDT RETICULOCYTE PCT USWWEsmrbsm01/18/2025 1:34 PM EDT ALL CBC WITH AUTO EFUZUlqauqb82/18/2025 1:34 PM EDT PROTHROMBIN TIME-DCKVzfjmgh30/04/2025 1:16 PM EDTALL TZUYDJTXPHybpliy11/28/2025 11:22 AM EDT ALL BASIC METABOLIC FKOBABltznce36/28/2025 11:22 AM EDT from Last 3 Months Results * VITAMIN B12 (03/02/2025 1:34 PM EDT)ComponentValueRef RangeTest MethodAnalysis TimePerformed AtPathologist SignatureVITAMIN [id number] - 1245 pg/mLTBHComment: Performed at: ??[facility] ??[id number] Academic Administrator: Tone Kelly PhD, Phone: ??[phone] Specimen (Source)Anatomical Location / LateralityCollection Method / Volume Collection TimeReceived Time03/02/2025 1:34 PM EDT03/02/2025 1:40 PM EDT Narrative [facility] - 03/03/2025 4:07 AM EDT Authorizing ProviderResult TypeResult StatusGeneric External Data ProviderLAB BLOOD ORDERABLESFinal ResultPerforming OrganizationAddressCity/State/ZIP Code Phone Number [facility] * RETICULOCYTE PCT AUTO (03/02/2025 1:34 PM EDT)ComponentValueRef RangeTest MethodAnalysis TimePerformed AtPathologist SignatureRETICULOCYTE PCT AUTO2.20 0.60 - 3.10 %TBHSpecimen (Source)Anatomical Location / LateralityCollection Method / VolumeCollection TimeReceived Time03/02/2025 1:34 PM EDT03/02/2025 1:40 PM EDT Narrative [facility] - 03/02/2025 1:56 PM EDT Authorizing ProviderResult TypeResult StatusGeneric External Data ProviderLAB BLOOD ORDERABLESFinal ResultPerforming OrganizationAddressCity/State/ZIP Code Phone Number [facility] * TRANSFERRIN (03/02/2025 1:34 PM EDT)ComponentValueRef RangeTest MethodAnalysis TimePerformed AtPathologist BssyyztrlEOIABSRXPQX599206 - 313 mg/dLTBHComment: Performed at: ??[employer], [place] ??[id number] Academic Administrator: Tone Kelly PhD, Phone: ??[phone] Specimen (Source)Anatomical Location / LateralityCollection Method / Volume Collection TimeReceived Time03/02/2025 1:34 PM EDT03/02/2025 1:40 PM EDT Narrative [facility] - 03/03/2025 5:07 AM EDT Authorizing ProviderResult TypeResult StatusGeneric External Data ProviderLAB BLOOD ORDERABLESFinal ResultPerforming OrganizationAddressCity/State/ZIP Code Phone Number [facility] * (ABNORMAL) METRO IRON AND TIBC (03/02/2025 1:34 PM EDT)ComponentValueRef Range Test MethodAnalysis TimePerformed AtPathologist SignatureTBH IRON38.0(L)65.0 - 175.0 ug/dLTBHTBH TOTAL IRON BINDING BUOMLOKD221.0250.0 - 450.0 ug/dLTBHTBH PERCENT IRON UMCJVDCGUH99.2%TBHSpecimen (Source)Anatomical Location / LateralityCollection Method / VolumeCollection TimeReceived Time03/02/2025 1:34 PM EDT03/02/2025 1:40 PM EDT Narrative [facility] - 03/02/2025 3:16 PM EDT Authorizing ProviderResult TypeResult StatusGeneric External Data Provider CLINISYNCFinal ResultPerforming OrganizationAddressCity/State/ZIP CodePhone Number [facility] * [facility] FERRITIN (03/02/2025 1:34 PM EDT)ComponentValueRef RangeTest Method Analysis TimePerformed AtPathologist KqquqiheyPUDMDIZS90.026.0 - 388.0 ng/mL TBHSpecimen (Source)Anatomical Location / LateralityCollection Method / Volume Collection TimeReceived Time03/02/2025 1:34 PM EDT03/02/2025 1:40 PM EDT Narrative [facility] - 03/02/2025 3:17 PM EDT Authorizing ProviderResult TypeResult StatusGeneric External Data Provider CLINISYNCFinal ResultPerforming OrganizationAddressty/State/ZIP CodePhone Number [facility] * (ABNORMAL) [facility] CMP (CMP) (FOR REMOTE [facility] USE) (03/02/2025 1:34 PM EDT) ComponentValueRef RangeTest MethodAnalysis TimePerformed AtPathologist GsusvdulmKAOYDQ052922 - 145 mmol/LTBHPOTASSIUM4.13.5 - 5.1 mmol/LTBHCHLORIDE 109(H)98 - 107 mmol/LTBHCARBON QOSGKWN07.021.0 - 32.0 mmol/LTBHANION GAP16.1 SJHUEREBXO33243 - 106 mg/dLTBHBLOOD UREA MHQSFORG48.0(H)7.0 - 18.0 mg/dLTBH CREATININE0.930.70 - 1.30 mg/dLTBHTBH EGFR-AF MOZAMBICAN>60>=60 mL/min/1.73m 2 TBHTBH EGFR-NON AF MOZAMBICAN>60>=60 mL/min/1.73m 2TBHBUN CREATININE RATIO28.0 TBHCALCIUM9.08.5 - 10.1 mg/dLTBHBILIRUBIN TOTAL0.80.2 - 1.0 mg/dLTBHASPARTATE AMINO JXFLGREORFB59(H)15 - 37 U/LTBHALANINE ORLJXJCWBPSVLNEA5193 - 63 U/LTBH ALKALINE QKPBOTZPXVE36948 - 116 U/LTBHTOTAL PROTEIN7.76.4 - 8.2 g/dLTBHALBUMIN LEVEL4.03.4 - 5.0 g/dLTBHGLOBULIN3.7g/dLTBHALBUMIN GLOBULIN RATIO1.1TBH Specimen (Source)Anatomical Location / LateralityCollection Method / Volume Collection TimeReceived Time03/02/2025 1:34 PM EDT03/02/2025 1:40 PM EDT Narrative [facility] - 03/02/2025 2:13 PM EDT Authorizing ProviderResult TypeResult StatusGeneric External Data Provider CLINISYNCFinal ResultPerforming OrganizationAddressCity/State/ZIP CodePhone Number [facility] * (ABNORMAL) ALL LDH (03/02/2025 1:34 PM EDT)ComponentValueRef RangeTest Method Analysis TimePerformed AtPathologist SignatureLACTATE PADPRHXTAUNUB649(H)85 - 227 U/LTBHSpecimen (Source)Anatomical Location / LateralityCollection Method / VolumeCollection TimeReceived Time03/02/2025 1:34 PM EDT03/02/2025 1:40 PM EDT Narrative [facility] - 03/02/2025 2:13 PM EDT Authorizing ProviderResult TypeResult StatusGeneric External Data Provider CLINISYNCFinal ResultPerforming OrganizationAddressCity/State/ZIP CodePhone Number [facility] * ALL FOLIC ACID (03/02/2025 1:34 PM EDT)ComponentValueRef RangeTest Method Analysis TimePerformed AtPathologist SduekpvsjNOPCNU64.708.60 - 58.90 ng/mLTBH Specimen (Source)Anatomical Location / LateralityCollection Method / Volume Collection TimeReceived Time03/02/2025 1:34 PM EDT03/02/2025 1:40 PM EDT Narrative [facility] - 03/02/2025 3:17 PM EDT Authorizing ProviderResult TypeResult StatusGeneric External Data Provider CLINISYNCFinal ResultPerforming OrganizationAddressCity/State/ZIP CodePhone Number [facility] * (ABNORMAL) ALL CBC WITH AUTO DIFF (03/02/2025 1:34 PM EDT)ComponentValueRef RangeTest MethodAnalysis TimePerformed AtPathologist SignatureTBH WBC4.64.0 - 11.0 10 3/uLTBHTBH RBC3.87(L)4.70 - 6.10 10 6/uLTBHTBH HGB11.0(L)14.0 - 18.0 g/dLTBHTBH HCT34.3(L)42.0 - 54.0 %TBHTBH MCV88.680.0 - 94.0 fLTBHTBH MCH28.4 25.9 - 34.0 pgTBHTBH MCHC32.129.9 - 35.2 g/dLTBHTBH RDW16.2(H)11.0 - 15.0 %TBH TBH PLT96(L)150 - 450 10 3/uLTBHTBH MPV10.69.5 - 13.5 fLTBHNEUTROPHILS PERCENT AUTO57.243.0 - 75.0 %TBHLYMPHOCYTES PERCENT AUTO27.120.5 - 60.0 %TBHMONOCYTES PERCENT AUTO14.2(H)1.7 - 12.0 %TBHTBH EO %0.4(L)0.9 - 7.0 %TBHBASOPHILS PERCENT AUTO0.40.2 - 2.0 %TBHIMMATURE GRANULOCYTES PCT AUTO0.7(H)0.0 - 0.5 % TBHNEUTROPHILS ABSOLUTE AUTO2.61.4 - 6.5 10 3/uLTBHLYMPHOCYTES ABSOLUTE AUTO 1.21.2 - 3.8 10 3/uLTBHMONOCYTES ABSOLUTE AUTO0.70.3 - 0.8 10 3/uLTBHTBH EO # 0.00.0 - 0.7 10 3/uLTBHBASOPHILS ABSOLUTE AUTO0.00.0 - 0.1 10 3/uLTBHIMMATURE GRANULOCYTES ABS AUTO0.030.00 - 0.03 10 3/uLTBHSpecimen (Source)Anatomical Location / LateralityCollection Method / VolumeCollection TimeReceived Time 03/02/2025 1:34 PM EDT03/02/2025 1:40 PM EDT Narrative [facility] - 03/02/2025 1:56 PM EDT Authorizing ProviderResult TypeResult StatusGeneric External Data Provider CLINISYNCFinal ResultPerforming OrganizationAddressCity/State/ZIP CodePhone Number [facility] * Protime-INR (02/16/2025 1:16 PM EDT)Specimen (Source)Anatomical Location / LateralityCollection Method / VolumeCollection TimeReceived TimeBloodVenous blood specimen / Unknown Narrative Authorizing ProviderResult TypeResult StatusNoms Provider Unallocated SDLAB BLOOD ORDERABLESFinal Result * (ABNORMAL) ALL MAGNESIUM (01/09/2025 11:22 AM EDT)ComponentValueRef RangeTest MethodAnalysis TimePerformed AtPathologist SignatureMAGNESIUM1.4(L)1.8 - 2.4 mg/dLTBHSpecimen (Source)Anatomical Location / LateralityCollection Method / VolumeCollection TimeReceived Time01/09/2025 11:22 AM EDT01/09/2025 11:23 AM EDT Narrative [facility] - 01/09/2025 12:01 PM EDT Authorizing ProviderResult TypeResult StatusMichele Loretta Gomez NPCLINISYNCFinal ResultPerforming OrganizationAddressCity/State/ZIP CodePhone Number [facility] * (ABNORMAL) ALL BASIC METABOLIC PANEL (01/09/2025 11:22 AM EDT)ComponentValue Ref RangeTest MethodAnalysis TimePerformed AtPathologist YujfcqgxwYIDCPI518259 - 145 mmol/LTBHPOTASSIUM3.93.5 - 5.1 mmol/NZANJTSWYBXB42126 - 107 mmol/LTBH CARBON CWRGGSI12.921.0 - 32.0 mmol/LTBHANION GAP15.9HFJHAIVDHA0381 - 106 mg/dL TBHBLOOD UREA YIKKSPBR21.0(H)7.0 - 18.0 mg/dLTBHCREATININE0.810.70 - 1.30 mg/dLTBHTBH EGFR-AF MOZAMBICAN>60>=60 mL/min/1.73m 2TBHTBH EGFR-NON AF MOZAMBICAN >60>=60 mL/min/1.73m 2TBHBUN CREATININE RATIO27.9SXWOCKIASR5.98.5 - 10.1 mg/dL TBHSpecimen (Source)Anatomical Location / LateralityCollection Method / Volume Collection TimeReceived Time01/09/2025 11:22 AM EDT01/09/2025 11:23 AM EDT Narrative [facility] - 01/09/2025 12:01 PM EDT Authorizing ProviderResult TypeResult StatusMichelevelina Gomez NPCLINISYNCFinal ResultPerforming OrganizationAddressCity/State/ZIP CodePhone Number [facility] from Last 3 Months Insurance Care Teams Team MemberRelationshipSpecialtyStart DateEnd Supa Reardon MD [address] [place] [address] PCP - GeneralInternal Medicine11/04/22 Supa Reardon MD [address] [place] [address] PCP - ACO Reach03/15/24 Monica Hook MD [address] [place] [address] Referring QgjddqfmvJzjttnjhjea40/30/23 Jorje Ramirez MD [address] [place] [address] Referring SfpandkzjVhilrto10/30/23 Bonita Ovalles MD [address] [facility] [place] [address] Referring FcxhwvdbxTixejrhmhx20/30/23
--- OUTSIDE RECORDS SUMMARY | 2025-04-06 13:00 | XMS_ITS | Encounter Summary ---
Author Organization [facility] Address [address] [facility] [place] [address] Care Team Providers Care Corporate Receptionist Name Role Phone Supa Reardon MD Primary Care Provider [phone] Monica Hook MD Unavailable [phone] Jorje Ramirez MD Unavailable [phone] Bonita Ovalles MD Unavailable [phone] Supa Reardon MD Unavailable [phone] Encounter Details DateTypeDepartmentCare Team (Latest Contact Info)Oqvpytiugok22/14/2025Travel Social History Tobacco UseTypesPacks/DayYears UsedDateSmoking Tobacco: FormerCigarettesQuit: 06/15/2001Smokeless Tobacco: Never Comments:Ex-heavy cigarettes smoker (20-30/day) Alcohol UseStandard Drinks/RijeCfjrkvlkZhf03 (1 standard drink = 0.6 oz pure alcohol).caffeine intake:Coffee, 3-4 cups per day.PHQ-2AnswerDate Recorded Patient Health Questionnaire-2 Cjrmo952Sex and Gender InformationValue Date RecordedSex Assigned at BirthNot on fileLegal BucZoig2808/27/2022 7:09 PM EDT Gender IdentityNot on fileSexual OrientationNot on fileOccupationIndustryJob Start DateJob 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 [facility] HospitaloolNot on fileNot on fileNot on filedocumented as of this encounter Plan of Treatment DateTypeDepartmentCare Team (Latest Contact Info)Cnuyqiagogz07/06/2026 1:30 PM ESTOffice Visit [facility] [address] [place] [address] documented as of this encounter Visit Diagnoses Not on filedocumented in this encounter Additional Health Concerns AssessmentNoted TimePHQ-9 Depression Total Score: 2:00 PM EST documented as of this encounter Care Teams Team MemberRelationshipSpecialtyStart DateEnd Supa Reardon MD [address] [place] [address] PCP - GeneralInternal Medicine11/04/22 Supa Reardon MD [address] [place] [address] PCP - ACO Reach03/15/24 Monica Hook MD [address] [place] [address] Referring QfmcwybfbHdpxogzxtti36/30/23 Jorje Ramirez MD [address] [place] [address] Referring OfnlatdcqMpuluvt58/30/23 Bonita Ovalles MD [address] [facility] [address] [place] [address] Referring IwjvemsoiMcqclwjjql64/30/23documented as of this encounter
--- OUTSIDE RECORDS SUMMARY | 2025-04-06 13:05 | XMS_ITS | CCD ---
Author Organization [facility] Care Team Providers Care [employer] Supervisor Name Role Phone Trey العلي Unavailable Unavailable [...] UnavailFani Polanco Unavailable María Stevenson II Unavailable DO Trey العلي Primary Care Provider MD María Stevenson II Attending Provider [phone] MD Caren Pineda Attending Provider [phone] NO FAMILY, PHYSICIAN Primary Care Provider Unava ilable BENJI Shaffer Attending Provider [phone] Un[address] Bonita Kingsley Attending Anastasia Dr. Trey Sherwood Primary Care Unavai BENJI Armstrong Attending Provider BENJI Shaffer Attending Provider [phone] DO Trey العلي Primary Care Provider DR KRISTIN ROME Attending Unavailable DR TREY [...] Unavailable FAWWAD, ROME H Attending Unavailable FAWWAD, ROEM H Admitting Unavailable DR TREY العلي Primary [...] MCGUIRE ., DR KRISTIN Molina Consulting Unavailable [facility] Primary Care Unavailable MCGUIRE ., DR KRISTIN Molina Consulting Unavailable MCGUIRE ., DR KRISTIN Molina Admitting Unavailable MCGUIRE ., DR KRISTIN Molina Attending Unavailable [facility] ROME H Attending Unavailable [facility] ROME H Admitting Unavailable ZOHRA, DR HOANG Primary Care Unavailable DO Trey العلي Primary Care Provider DO Trey العلي Attending Provider [phone] MD María Anderson Primary Care Provider [phone] MD María Anderson Attending Provider BENJI Lin Emergency Provider María Anderson Unavailable Dr. Trey العلي Primary Care Unagrady Kingsley, Dr. Bonita Greenberg Referring Anastasia vailable Josr, Dr. Bonita Greenberg Attending Anastasia vailable Ema Watts Unavailable BENJI Shaffer Attending Provider [phone] MD Julio C Ramirez Attending Provider BENJI Shaffer Attending Provider [phone] María Anderson MD Primary Care Provider [phone] MD María Anderson Primary Care Provider [phone] MD Julio C Ramirez Attending Provider BENJI Shaffer Attending Provider DO Tay Wood Emergency Provider DO Isai May Admit Provider [phone] DO Isai May Attending Provider [phone] DO Buck Glover Other Provider ANA Gonzalez Other Provider Unavailable DO Elizabeth Hassan Other Provider MD Bonita Kingsley Other Provider MD Lico Bolivar Other Provider MD Dominick Lugo Other Provider MD Robert Avila Other Provider BENJI Chu Other Provider MD Vika Goyal Other Provider MD Brian Rolonammed Namelani Other Provider MD Jarod Hills Other Provider David [facility] Kelly Burgos Other Provider MD Emily Latham Other Provider MD María Anderson Primary Care Provider [phone] MD Caren Crooks Jr Emergency Provider DO Isai May Admit Provider DO Isai May Attending Provider MD Betty Buchanan Attending Provider MD Caren Waite Other Provider MD Aspen Bishop Other Provider ARGELIA Tyler Other Provider Carmen, DO Roly A Other Provider Graham YOUNGBLOOD MD María Márquez Other Provider DO Ramses Garcia A Other Provider [phone] MD Swati Sagastume Emergency Provider MD Hilario Skelton Admit Provider MD Hilario Skelton Attending Provider MD Swati Sagastume Emergency Provider MD Hilario Skelton Admit Provider [phone] MD Ashley Merritt Attending Provider MD Radha Woodward Other Provider MD Henry Clark Other Provider BENJI Schmidt Other Provider [phone] DO Fran Juan Jrct L Other Provider [phone] MD Elver Cifuentes Other Provider [phone] MD Henry Clark Admit Provider MD Henry Clark Attending Provider ANA Jones Other Provider Unavailable ANA Chaudhry Other Provider Unavailable Liberty RN Analy Other Provider Unavailable ANA Ley Other Provider Unavailable Ramiro RN Macrina Other Provider Unavailable MD Bebe Ivey Other Provider DO Tracy Bar Other Provider [phone] MD Jose Kelsey Other Provider [phone] DO Parviz Roth Other Provider MD Hilario Skelton Other Provider MD Ashley Merritt Other Provider MD Jaguar Brewer Other Provider Unavailable BENJI Claros Other Provider [phone] MD Donnell Amos Other Provider MD Best Junior Other Provider MD Betty Buchanan Other Provider MD Yoni Zarco Other Provider DO Isai May Other Provider MD Hola Parkinson Other Provider MD Bunny Fowler Other Provider CHICA Wright-C Tara Choi Other Provider BENJI Ruvalcaba Other Provider Unavailable MD Bright Lopez Other Provider MD Paul Hgih Other Provider MD Estiven Sharpe Other Provider [...] Provider MD Norma Box Other Provider [phone] BENJI Alston Other Provider MD Aidan Knight Other Provider MD Wesly Palmer Other Provider Gila, RN Naheed Other Provider Unavailable DO Roly Morales Attending Provider DO Mick Putnam Emergency Provider MD Donnell Amos Admit Provider [phone] MD Donnell Amos Attending Provider MD Minna Patricia Admit Provider [phone] MD Minna Patricia Attending Provider DO Buck Glover Other Provider MD María Anderson Primary Care Provider MD Caren Crooks Jr Emergency Provider DO Isai May Admit Provider MD Betty Buchanan Attending Provider MD Caren Waite Other Provider MD Aspen Bishop Other Provider Nayeli BACTERIOLOGIST DAIRY-C Mona L Other Provider DO Roly Morales Other Provider MD María Stevenson II Other Provider DO Ramses Garcia A Other Provider MD Swati Sagastume R Emergency Provider [phone] MD Hilario Skelton Admit Provider [phone] MD Ashley Merritt Attending Provider MD Radha [...] MD Hola Parkinson Other Provider MD Bunny Fowlre Other Provider Adriana BACTERIOLOGIST DAIRY-Jose Choi Other Provider BENJI Ruvalcaba Other Provider Unavailable MD Bright Lopez Other Provider MD Palu High Other Provider MD Estiven Sharpe Other Provider MD Kang Enriquez Other Provider Unavailable MD Buddy East Other Provider DO Sherry Gonzalez Other Provider DO Bj Hess Other Provider BENJI Moore Other Provider DO Home Marino Other Provider [phone] MD Minna Patricia Other Provider [phone] BENJI Lewis Other Provider [phone] BENJI Gill Other Provider MD Regis Winston [...] Provider DO Mick Putnam Emergency Provider [phone] MD Minna Patricia Admit Provider [phone] MD Minna Patricia Attending Provider DO Buck Glover Other Provider DO Alec Bliss Emergency Provider MD Bright Lopez Admit Provider MD Bright Lopez Attending Provider DO Ramses Garcia Attending Provider María Anderson MD Primary Care Provider Monica Hook MD Unavailable [phone] Julio C Ramirez MD Unavailable Bonita Kingsley MD Unavailable [phone] María Anderson MD Unavailable BONITA KINGSLEY Referring Unavailable MARÍA ANDERSON Primary Care Unavailable Trey العلي DO Unavailable [phone] María Anderson MD Primary Care Provider Bonita Kingsley MD Attending Provider ChristinaannGely hoyt APRN Debbie Emergency Provider [phone] Julio C RAMIREZ Attending Unavailable Julio C RAMIREZ Attending Unavailable Julio C RAMIREZ Admitting Unavailable Julio C RAMIREZ Attending Unavailable Bonita Kingsley MD Unavailable Al-Wallace, Shiraz Yaser Attending Unavailabl e Jaison, Shiraz Yaser Admitting Unavailabl e Jaison, Shiraz Yanadine Attending Unavailchristopher Blackwood, Shiraz Yaser Attending UnavailMARÍA Esparza Referring Unavailable Jaison, Shiraz Mcconnell Attending Unavailchristopher Blackwood, Shiraz Mcconnell Admitting UnavailMaría Esparza MD Primary Care Provider BONITA KINGSLEY Attending Unavailable BONITA KINGSLEY Referring Unavailable MARÍA ANDERSON Primary Care Unavailable BONITA KINGSLEY Attending Unavailable BONITA KINGSLEY Referring Unavailable MARÍA ANDERSON Primary Care Unavailable BONITA KINGSLEY Attending Unavailable BONITA KINGSLEY Referring Unavailable MARÍA ANDERSON Primary Care Unavailable Shiraz Blackwood Attending UnavailMaría Esparza MD Primary Care Provider [phone] Caren Crooks MD Emergency Provider [phone] Isai May DO Admit Provider Isai May DO Attending Provider [phone] Minna Patricia MD Attending Provider [phone] Marisela Shaffer Admitting Unavailable Trey العلي Primary Care Unavailable Marisela Shaffer Attending Unavailable Trey العلي Primary Care Unavailable Marisela Shaffer Admitting Unavailable Marisela Shaffer Attending Unavailable Marisela Shaffer Admitting Unavailable Zohra, Trey Primary Care Unavailable Copsey, Marisela M Attending Unavailable Copsey, Marisela M Admitting Unavailable Copsey, Marisela M Attending Unavailable [facility] Unavailable Copsey, Marisela M Admitting Unavailable [facility] Unavailable Copsey, Marisela M Attending Unavailable Dolce, Erasmo R Attending Unavailable Dolce, Erasmo R Admitting Unavailable [facility] Unavailable Copsey, Marisela M Admitting Unavailable [facility] Unavailable Copsey, Marisela M Attending Unavailable Copsey, Marisela M Admitting Unavailable [facility] Unavailable Copsey, Marisela M Attending Unavailable Copsey, Marisela M Admitting Unavailable [facility] Unavailable Copsey, Marisela M Attending Unavailable Copsey, Marisela M Admitting Unavailable [facility] Unavailable Copsey, Marisela M Attending Unavailable Copsey, Marisela M Admitting Unavailable Copsey, Marisela M Attending Unavailable [facility] Unavailable Copsey, Marisela M Attending Unavailable Copsey, Marisela M Admitting Unavailable [facility] Unavailable Copsey, Marisela M Attending Unavailable Copsey, Marisela M Admitting Unavailable [facility] Unavailable Copsey, Marisela M Attending Unavailable Copsey, Marisela M Admitting Unavailable [facility] Unavailable Copsey, Marisela M Admitting Unavailable [facility] Unavailable Copsey, Marisela M Attending Unavailable Copsey, Marisela M Admitting Unavailable [facility] Unavailable Copsey, Marisela M Attending Unavailable Dolce, Erasmo R Attending Unavailable Dolce, Erasmo R Admitting Unavailable [facility] Unavailable Copsey, Marisela M Admitting Unavailable [facility] Unavailable Copsey, Marisela M Attending Unavailable Copsey, Marisela M Admitting Unavailable [facility] Unavailable Copsey, Marisela M Attending Unavailable Copsey, Marisela M Admitting Unavailable [facility] Unavailable Copsey, Marisela M Attending Unavailable Dolce, Erasmo R Admitting Unavailable Dolce, Erasmo R Attending Unavailable [facility] Unavailable Copsey, Marisela M Admitting Unavailable [facility] Unavailable Copsey, Marisela M Attending Unavailable Copsey, Marisela M Admitting Unavailable Zohra, Trey Primary Care Unavailable Copsey, Marisela M Attending Unavailable Copsey, Marisela M Admitting Unavailable Zohra, Trey Primary Care Unavailable Copsey, Marisela M Attending Unavailable Copsey, Marisela M Admitting Unavailable Copsey, Marisela M Attending [facility] Copsey, Marisela M Admitting Unavailable Zohra, Trey Primary Care Unavailable Copsey, Marisela M Attending Unavailable Copsey, Marisela M Admitting [facility]available [facility] Unavailable Copsantos, Marisela M Attending Unavailable MARÍA ANDERSON Referring Unavailable MARIA FERNANDA LAWS Attending Unavailable MONICA, MARÍA Burgos Attending Unavailable PETR PERLA Attending Unavailable BUCK GLOVER Referring Unavailable JAYY JOSHUA Attending Unavailable JAYY JOSHUA Attending Unavailable MONICA, MARÍA Burgos Referring Unavailable MONICA, MARÍA Burgos Referring Unavailable MARIA FERNANDA LAWS Attending Unavailable ROSALINDA CARO Attending Unavailable MARÍA ANDERSON Referring Unavailable Julio C Ramirez MD Unavailable Bointa Kingsley MD Unavailable [phone] [facility] Unavailable Gely Lin Admitting Unavailable Gely Lin Attending Unavailable [facility] Unavailable Bonita Kingsley Admitting Unavailable Bonita Kingsley Attending Unavailable [facility] Unavailable Isai May Admitting Unavailable Minna Patricia Attending Unavailable Allergies Allergy ClassificationReported Allergen(s)Allergy TypeDate of OnsetReaction(s) FacilityAminoglycosides (antibiotic) (1 source)NeomycinDrug Fvjbxgo57-17-7653dfwb and rashHolzer Medical Center – JacksonBacitracin (1 source)BacitracinDrug Xmxzmbw77-17-9762lfzc and rashHolzer Medical Center – JacksonPenicillins (antibiotic) (2 sources)AmoxicillinDrug Jdlqcyf17-01-0696Lahsqoto of Lip/Tongue/Throat, [facility] (20 sources)Amoxicillin; Translations: [Amoxicillin CAPS]Drug Yrbjgcb19-95-7670 Angioedema, SwellingNOMS Healthcare Work Phone: (20 sources)Bacitracin; Translations: [bacitracin]Drug Nahhewi37-82-0360VcogcslSelect Medical [facility] (20 sources)Neomycin; Translations: [neomycin]Drug Qisnsrk68-38-1006Syvkuyy [facility] (17 sources)Polymyxin B; Translations: [Polymyxin B Sulfate SOLR]Drug Allergy 20-43-4171UuzwvKY-Cardiology-CMC Dominick Hinton [address] [place] Work Phone: (20 sources)Penicillins; Translations: [Penicillins]Allergy to drug (finding) 87-32-6138LvasjarkjnrTpbmjolqpMercy Health Lorain Hospital (20 sources)Adhesive agent; Translations: [adhesive]Drug rwdiasp85-56-5552 Unknown, [facility] (4 sources)Bacitracin / Neomycin / Polymyxin BDrug AllergyMohawk Valley General Hospital Serious Parody Other (3 sources)Penicillin VDrug AllergyProvidence City Hospital Serious Parody Other (20 sources)Amoxicillin; Translations: [Amoxicillin]Drug Sbkjtwq45-91-8657 Swelling of Lip/Tongue/ThroatMer[facility] (20 sources)polymyxin B; Translations: [POLYMYXIN B]Allergy to substance 90-34-0041Bnuk and itch, Rash and itch, [facility] (1 source)PenicillinDrug AllergyProvidence City Hospital Serious Parody Other (5 sources)PenicillinsDrug Edxvofo45-52-7068Uvncpdddiy, Other, Rash, Swelling, UnknownPike [facility] Hospital Work Phone: (20 sources)PenicillinsDrug Hkbqisf17-37-8653Zgzxb, Rash, Swelling, Angioedema [facility] (20 sources)Wound Dressing AdhesiveDrug Yksmdpj94-15-8538OadlRPVE Healthcare (3 sources)metroNIDAZOLE; Translations: [Flagyl]Drug AllergyBucyrus [facility] (2 sources)beta-Blocking agent; Translations: [BETA-BLOCKERS (BETA-ADRENERGIC BLOCKING AGTS)]Propensity to adverse reactions to oxvs73-22-2883HahhzRpxpkostlvPike Community Hospital Work Phone: (1 source)PenicillinsDrug Qfhuodw71-19-2548Kasrybcuvp, Other, Rash, Swelling, UnknownUnBucyrus Community Hospital Work Phone: (1 source)PenicillinsDrug allergy (disorder)48-81-5456KgdeuzaqyMer[facility] Repository Medications Current Medications MedicationDrug Class(es)DatesSig (Normalized)Sig (Original)acetaminophen 325 mg / oxyCODONE hydrochloride 5 mg oral tablet (20 sources)Opioid AgonistStart: 03-07-2024 End: 97-95-6207wmla 1 tablet by mouth every six hours for painoxyCODONE- acetaminophen (Percocet) 5-325 MG tablet Indications: Nontraumatic tear of right rotator cuff, unspecified tear extent Take 1 tablet by mouth every 6 (six) hours if needed for moderate painor severe pain for up to 5 days 20 tablet 03/07/2024 03/12/2024 ActiveStart: 68-44-9447ovhv 1 tablet by mouth every six hoursPercocet 5-325 MG 1 tablet as needed Orally every 6 hrs for 7 days DO NOT FILL UNTIL 12/31/2020 Dec, Not-TakingStart: 65-80-9489ysfk 1 tablet by mouth every eight hoursPercocet 5-325 MG 1 tablet as needed Orally every 8 hrs for 7 days Dec, Not-TakingStart: 12-19-2020 End: 34-80-3982pvrx 1 tablet by mouth every four to six hours as needed for pain Oxycodone-Acetaminophen (Percocet) 5-325 mg Tablet Discontinued 1 - 2 TAB PO EVERY 4-6 HOURS as needed for Pain 40 7 December 19, 2020 October 01, 2021 10:25am Start: 12-19-2020 End: 72-91-0214imhswbh 81 mg delayed release oral tablet (20 sources)Platelet Aggregation Inhibitor, Nonsteroidal Anti-inflammatory Drug Start: 95-83-2674ngob 1 tablet by mouth once dailyAspirin (Adult Aspirin Regimen) 81 mg tablet,delayed release (DR/EC) Active 81 MG PO Daily December 20, 2023 12:00am Complies with drug therapyatorvastatin 80 mg oral tablet (20 sources)HMG-CoA Reductase InhibitorStart: 61-28-0073Mtuujumyahrn 80 mg tablet Active 40 MG PO Daily December 20, 2023 12:00am Complies with drug therapy Start: 07-20-2023 End: 53-71-4233vzhr 1 tablet by mouth in the morningatorvastatin (Lipitor) 40 MG tablet Indications: 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 60 tablet 07/20/2023 ActiveStart: 06-05-2023 End: 51-19-6662xite 1 tablet by mouth once dailyAtorvastatin 80 mg tablet Discontinued 80 MG PO Daily June 05, 2023 1:00am December 20, 2023 12:52am Start: 06-05-2023 End: 46-69-8127uxuzkbozxtk hyclate 100 mg oral capsule (20 sources)Tetracycline-class DrugStart: 10-04-2024 End: 74-09-5623fkrdhpuzghg (Vibramycin) 100 MG capsule Indications: Acute non- recurrent pansinusitis Take 1 capsule (100 mg) by mouth in the morning and 1 capsule (100 mg) before bedtime. Do all this for 7 days. Take with at least 8 ounces (large glass) of water, do not lie down for 30 minutes after. 14 capsule 10/04/2024 10/11/2024 ActiveStart: 04-06-2024 End: 11-61-5274wtaxmwuakzl (Vibramycin) 100 MG capsule Indications: Skin tear of left elbow without complication, initial encounter , Left leg cellulitis Take 1 capsule (100 mg) by mouth in the morning and 1 capsule (100 mg) before bedtime. Do all this for 7 days. Take with at least 8 ounces (large glass) of water, do not lie down for 30 minutes after. 14 capsule 04/06/2024 04/13/2024 ActiveStart: 2022 End: 32-82-9627ypok 1 capsule by mouth twice dailyDoxycycline Hyclate 100 mg capsule Discontinued 100 MG PO Twice daily 2022 1:00am January 19, 2023 10:47amStart: 03-05-2022 End: 61-96-8606ijdo 1 tablet by mouth twice dailyDoxycycline Hyclate 100 mg tablet Discontinued 100 MG PO Twice daily March 05, 2022 12:00am March 19, 2022 10:31amStart: 10-01-2021 End: 34-74-3418oxvc 1 tablet by mouth twice dailyDoxycycline Hyclate 100 mg tablet Discontinued 100 MG PO Twice daily October 01, 2021 12:00amNovember 14, 2021 10:28amStart: 11-14-2020 End: 66-19-6123zpkm 1 tablet by mouth twice dailyDoxycycline Hyclate 100 mg tablet Discontinued 100 MG PO Twice daily 26 12November 14, 2020 12:00am December 10, 2020 10:36amStart: 10-31-2020 End: 61-99-7719edwf 1 capsule by mouth twice dailyDoxycycline Hyclate 100 mg capsule Discontinued 100 MG PO Twice daily October 31, 2020 12:00am December 10, 2020 10:36amStart: 08-22-2020 End: 41-37-5698jajm 1 tablet by mouth twice dailyDoxycycline Hyclate 100 mg tablet Discontinued 100 MG PO Twice daily August 22, 2020 1:00am September 18, 2020 2:17pmStart: 08-08-2020 End: 19-47-5254uwsm 1 capsule by mouth twice dailyDoxycycline Hyclate 100 mg capsule Discontinued 100 MG PO Twice daily August 08, 2020 1:00am August 29, 2020 1:36pmStart: 05-07-2020 End: 29-00-2798oopr 1 capsule by mouth twice dailyDoxycycline Hyclate 100 mg capsule Discontinued 100 MG PO Twice daily May 07, 2020 1:00am May 25, 2020 11:48amlosartan potassium 25 mg oral tablet (14 sources)Angiotensin 2 Receptor BlockerStart: 20-73-8580Cmxgogbw (Cozaar) 25 mg tablet Active 12.5 MG PO Daily March 22, 2025 12:00am Complies with drug therapyStart: 12-12-2024 End: 36-61-6830ntuh 0.5 tablet by mouth once dailylosartan (Cozaar) 25 MG tablet Indications: Congestive heart failure, NYHA class 2, unspecified congestive heart failure type (HCC) Take 0.5 tablets (12.5 mg) by mouth Daily 03/28/2025 ActiveStart: 11-24-2024 End: 16-41-9544vodm 1 tablet by mouth once dailylosartan (Cozaar) 25 MG tablet Indications: Congestive heart failure, NYHA class 2, unspecified congestive heart failure type (HCC) Take 1 tablet (25 mg) by mouth Daily 30 tablet 3 11/24/2024 03/28/2025 Discontinued (Reorder)Magnesium Oxide, Elemental, 400 MG tablet (9 sources)Start: 33-90-9146uynf 1 tablet by mouth once dailyMagnesium Oxide, Elemental, 400 MG tablet Indications: Hypomagnesemia Take 1 tablet by mouth Daily 90 tablet 2 12/13/2024 Activemeclizine hydrochloride 12.5 mg oral tablet (5 sources)AntiemeticStart: 02-17-2025 End: 39-54-6013xoam 1 tablet by mouth three times daily as needed for nausea meclizine (Antivert) 12.5 MG tablet Indications: Vertigo of central origin Take 1 tablet (12.5 mg) by mouth 3 (three) times a day as needed for dizziness or nausea 30 tablet 03/28/2025 03/28/2026 Activemelatonin 10 mg oral capsule (5 sources)take 1 tablet by mouth at bedtimeMelatonin 10 MG capsule Take 1 tablet by mouth at bedtime ActiveMultiple Vitamins-Minerals (PRESERVISION AREDS 2 PO) (20 sources)Multiple Vitamins-Minerals (PRESERVISION AREDS 2 PO) Take by mouth HpahnxZpzvxlmi-Riy-Sc-Lut-Zeaxanth (Macular Vitamin) 500-5-1 mcg-mg-mg tablet (3 sources)Start: 12-63-6453ifes 1 tablet by mouth once daily Vthwquoz-Jso-Tb-Lut-Zeaxanth (Macular Vitamin) 500-5-1 mcg-mg-mg tablet Active 1 TAB PO Daily February 26, 2024 12:00am Complies with drug therapyStart: 97-82-6272ntnq 1 tablet by mouth once pvzgwUwyyegrv-Bor-Nw-Lut-Zeaxanth (Macular Vitamin) 500-5-1 mcg-mg-mg tablet Active 1 TAB PO Daily February 25, 2024 11:94bmgb-rwj-QB-vit U-ticphb-xnctuns (PreserVision AREDS 2 Plus MV) 200 mcg-15 mcg- 5 mg-1 mg capsule (1 source)take 1 capsule by mouth once qndktbf-mhg-LF-vit J-ulwqvs-bzmgvma (PreserVision AREDS 2 Plus MV) 200 mcg-15 mcg- 5 mg-1 mg capsule Take 1 capsule by mouth once daily. ActiveNutritional Supplements (ADULT NUTRITIONAL SUPPLEMENT PO) (5 sources)take 1 tablet by mouth once dailyNutritional Supplements (ADULT NUTRITIONAL SUPPLEMENT PO) Indications: Redi Mind Cognitive Supplement Take 1 tablet by mouth Daily (Redi Mind Cognitive Supplement) Activepantoprazole 40 mg delayed release oral tablet (20 sources)Proton Pump InhibitorStart: 60-16-0527jdnq 1 tablet by mouth before mealtimepantoprazole (ProtoNix) 40 MG EC tablet Indications: Gastroesophageal reflux disease without esophagitis Take 1 tablet (40 mg) by mouth in the morning. Take before meals. 90 tablet 3 01/03/2025 ActiveStart: 04-27-2017 End: 82-00-8438lutw 1 tablet by mouth once dailyPantoprazole (Protonix) 40 mg Tablet,Delayed Release (Dr/Ec) Discontinued 40 MG PO Daily April 27, 2017 1:00am May 08, 2017 2:00pmsertraline 25 mg oral tablet (11 sources)Serotonin Reuptake InhibitorStart: 03-06-2025 End: 08-01-0015rgjo 1 tablet by mouth once dailySertraline 25 mg tablet Active 25 MG PO Daily March 22, 2025 12:00am Complies with drug therapyStart: 12-13-2024 End: 57-31-9410abts 1 tablet by mouth once dailysertraline (Zoloft) 25 MG tablet Indications: Mixed anxiety and depressive disorder Take 1 tablet (25 mg) by mouth Daily 30 tablet 2 12/13/2024 ActivetraMADol hydrochloride 50 mg oral tablet (20 sources)Opioid AgonistStart: 06-63-0231qxat 1 tablet by mouth once daily as needed for painTramadol 50 mg tablet Active 50 MG PO Daily as needed for pain (scale score 7-10) June 1551:00am Complies with drug therapyStart: 04-06-2024 End: 19-00-7289dpvq 1 tablet by mouth every eight hours for paintraMADol (Ultram) 50 MG tablet Indications: Lumbosacral spondylosis without myelopathy Take 1 tablet (50 mg) by mouth every 8 (eight) hours if needed for severe pain 60 tablet 06/13/2024 02/01/2025 DiscontinuedStart: 08-22-2020 End: 05-35-6900iuxe 1 tablet by mouth once daily as needed for painTramadol 50 mg Tablet Discontinued 50 MG PO Daily as needed for Pain August 22, 2020 1:00am December 19, 2020 11:49amStart: 08-22-2020 End: 26-59-3339wlvy 1 tablet by mouth every six hours as needed for painTramadol 50 mg Tablet Discontinued 50 MG PO Q6H as needed for Pain October 01, 2021 12:00am December 23, 2023 2:06pmStart: 55-86-2580nnqx 2 tablets by mouth three times daily as neededtraMADol HCl - 50 MG Oral Tablet TAKE 2 TABLETS BY MOUTH THREE TIMES DAILY NEEDED Quantity: 180 Refills: 0 Start : 28-Oct-2019 Active warfarin sodium 5 mg oral tablet (20 sources)Vitamin K AntagonistStart: 12-80-9743wstr 2 tablets by mouth once dailyWarfarin 5 mg tablet Active 10 MG PO Daily March 22, 2025 12:00am START TODAY 12/23/23 Complies with drug therapyStart: 02-05-2020 End: 64-76-0909Qweur: 05-16-2019 End: 27-21-2738Hzuomeeb 5 mg tablet Discontinued 10 MG PO Use as Directed May 16, 2019 1:00am January 14, 2020 10:32am 10 mg on TuesdaysStart: 05-16-2019 End: 03-62-7819owru 7.5 mg by mouth once dailyWarfarin 5 mg tablet Discontinued 7.5 MG PO Daily February 05, 2020 12:00am December 23, 2023 2:06pm 7.5mg every day Start: 06-10-2018 End: 51-11-1447lmhl 2 tablets by mouth every weekWarfarin 5 mg tablet Discontinued 10 MG PO 5 TIMES PER WEEK December 10, 2020 12:00am January 19, 2023 9:51am takes every thu, thu, thu, th, satStart: 04-27-2017 End: 18-21-1365aafw 1 tablet by mouth onceWarfarin (Coumadin) 5 mg Tablet Discontinued 5 MG PO Once 30 May 09, 2017 1:00am 2018 6:51pmStart: 04-27-2017 End: 20-83-9290Bzley: 04-27-2017 End: 57-85-2439Fmlbc: 04-27-2017 End: 33-17-4183Ekdat: 04-27-2017 End: 12-23-2023 (11 sources)Start: 92-95-3064Bilss: 12-23-2023 End: 27-15-2582Dgsdo: 05-18-2019 End: 01-14-2020 Completed/Discontinued Medications MedicationDrug Class(es)DatesSig (Normalized)Sig (Original)acetaminophen 500 mg oral tablet (20 sources)Start: 12-23-2023 End: 97-25-6164gcbq 2 tablets by mouth every six hours as needed for pain Acetaminophen 500 mg Tablet Discontinued 1000 MG PO Q6H as needed for Fever Or Pain 0 December 23, 2023 12:00am March 22, 2025 11:53amStart: 49-92-4600Zdcfz: 05-16-2019 End: 49-99-0909Yknfcxhqxspvt 500 mg Tablet Discontinued 325 MG PO Q4H as needed for Pain May 16, 2019 1:00amMarc2020 10:55amStart: 05-16-2019 End: 23-76-6820Fbtqf: 05-16-2019 End: 71-67-8468zogm 325 mg by mouth every four hoursAcetaminophen Discontinued 325 MG PO Q4H May 16, 2019 1:00am August 22, 2020 10:55amacetaminophen 325 mg / HYDROcodone bitartrate 5 mg oral tablet (20 sources)Opioid AgonistStart: 05-05-2023 End: 16-60-9781uizx 1 tablet by mouth every four to six hours as needed for pain Hydrocodone-Acetaminophen 5-325 mg tablet Discontinued 1 TAB PO EVERY 4-6 HOURS as needed for pain 7 May 05, 2023 June 04, 2023 4:53pmStart: 05-05-2023 End: 08-59-2797grt701977 200 actuat albuterol 0.09 mg/actuat metered dose inhaler (20 sources)beta2-Adrenergic AgonistStart: 06-13-2024 End: 73-47-0187fdsf 2 puff(s) by inhalation every six hours for wheezing albuterol HFA (Ventolin HFA) 90 mcg/act inhaler Indications: Centrilobular emphysema (HCC) Inhale 2puffs every 6 (six) hours if needed for wheezing or shortness of breath Do not use at same time as Tramadol 8 g 06/13/2024 03/28/2025 Discontinued (Therapy completed)Start: 12-23-2023 End: 77-74-7243Xaorurarx Sulfate 90 mcg/actuation HFA aerosol inhaler Discontinued 2 INH INHALATION Every 4 hours as needed for shortness of breath or wheezing 8.5 December 23, 2023 12:00am December 29, 2023 2:40pmStart: 12-23-2023 End: 59-66-2196gonvtoitqgq 100 mg oral tablet (20 sources)Xanthine Oxidase InhibitorStart: 01-19-2019 End: 41-93-2539bodl 1 tablet by mouth once dailyAllopurinol 100 mg Tablet Discontinued 100 MG PO Daily January 19, 2019 12:00am May 16, 2019 6:51pm azithromycin 250 mg oral tablet (20 sources)Macrolide AntimicrobialStart: 05-18-2019 End: 10-75-6344asjy 1 tablet by mouth once dailyAzithromycin (Zithromax) 250 mg tablet Discontinued 250 MG PO Daily 3 May 18, 2019 1:00am January 14, 2020 10:32ambaclofen 10 mg oral tablet (20 sources)gamma-Aminobutyric Acid-ergic AgonistStart: 01-14-2020 End: 59-41-0322wkgf 5 mg by mouth four times dailyBaclofen 10 mg tablet Discontinued 5 MG PO Four times daily January 14, 2020 12:00am August 22, 2020 10:54amStart: 01-14-2020 End: 39-47-4005ywjbycgogk 250 mg oral tablet (20 sources)Cephalosporin AntibacterialStart: 05-18-2019 End: 27-41-4944ixsc 1 tablet by mouth twice dailyCefuroxime Axetil 250 mg tablet Discontinued 250 MG PO Twice daily 10 May 18, 2019 1:00am January 14, 2020 10:34amcephalexin 500 mg oral capsule (20 sources)Cephalosporin AntibacterialStart: 12-01-2024 End: 24-17-7972tfep 1 capsule by mouth every twelve hourscephalexin (Keflex) 500 MG capsule Take 500 mg by mouth every 12 (twelve) hours 12/01/2024 02/01/2025 DiscontinuedStart: 83-39-0209oaba 1 capsule by mouth every twelve hours cephalexin (Keflex) 500 mg capsule Take 1 capsule (500 mg) by mouth every 12 hours. 12/01/2024 ActiveStart: 01-19-2023 End: 88-11-1370jqmy 1 capsule by mouth twice dailyCephalexin 500 mg capsule Discontinued 500 MG PO Twice daily January 19, 2023 12:00am February 26, 2023 10:30amciprofloxacin 500 mg oral tablet (20 sources)Quinolone AntimicrobialStart: 06-15-2024 End: 05-84-8388ygib 1 tablet by mouth twice dailyCiprofloxacin Hcl (Cipro) 500 mg tablet Discontinued 500 MG PO Twice daily June 15, 2024 1:00am March 22, 2025 11:53amStart: 05-05-2023 End: 29-08-3253mmxe 1 tablet by mouth every two hoursCiprofloxacin Hcl (Cipro) 500 mg tablet Discontinued 500 MG PO Q12H May 05, 2023 1:00am June 04, 2023 4:55pm administer dose at least 2 hrs before/6 hrs after dairy products, calcium,zinc, and/or iron-containing productsciticoline 500 mg oral tablet (2 sources) End: 18-75-4434jdqf 1 tablet by mouth once dailyCiticoline 500 MG capsule Indications: Redi Mind Cognitive Supplement Take 1 tablet by mouth Daily 0 02/01/2025 Discontinuedclobetasol propionate 0.0005 mg/mg topical ointment (20 sources)CorticosteroidStart: 05-07-2020 End: 64-74-7064Bupvfocwhw 0.05 % ointment Discontinued 1 APPLIC TOPICAL .w/dressings 60 May 07, 2020 1:00am December 10, 2020 10:35am as per wound ordersStart: 05-07-2020 End: 51-09-6346Homlb: 05-07-2020 End: 24-83-1608Qoaylmlqay Discontinued 1 APPLIC TOPICAL .w/dressings 60 May 07, 2020 1:00am December 10, 2020 10:35am as per wound orders collagenase 0.25 unt/mg topical ointment (20 sources)Collagen-specific EnzymeStart: 02-05-2020 End: 39-07-4284Fnqixsebjjq Clostridium Histo. (Santyl) 250 unit/gram ointment Discontinued 1 APPLIC TOPICAL Daily February 05, 2020 12:00am May 07, 2020 9:37amStart: 02-05-2020 End: 49-03-5671Xwcag: 39-78-0486Xbtruh 250 UNIT/GM External Ointment APPLY OINTMENT TOPICALLY DAILY TO WOUND Quantity: 30 Refills: 0 Ordered: 02-Feb-2020 DO Start : 01-Feb-2020 ActivediphenhydrAMINE hydrochloride 20 mg/ml / zinc acetate 1 mg/ml topical cream (20 sources)Histamine-1 Receptor AntagonistStart: 05-08-2017 End: 00-74-3028Vivdwmzzkcdmwya-Zinc Acetate (Itch Relief) 2-0.1 % Cream Discontinued 1 APPLIC TOPICAL Three times daily as needed for itching/rash 04 13May 08, 2017 1:00am May 16, 2019 6:51pmStart: 05-08-2017 End: 59-67-0095vnykwcafb maleate 2.5 mg oral tablet (11 sources)Angiotensin Converting Enzyme InhibitorStart: 04-18-2024 End: 47-64-9600jayq 1 tablet by mouth twice dailyenalapril (Vasotec) 2.5 mg tablet Indications: Congestive heart failure, NYHA class 2, unspecified c ongestive heart failure type Take 1 tablet (2.5 mg) by mouth 2 times a day. 180 tablet 3 Discontinued (Therapy completed)take 1 tablet by mouth once dailyenalapril (Vasotec) 2.5 MG tablet Take 2.5 mg by mouth Daily Activefluticasone propionate 0.05 mg/actuat metered dose nasal spray (10 sources)CorticosteroidStart: 12-04-2024 End: 59-64-8963ncauebeyfvl (Flonase) 50 MCG/ACT nasal spray 2 sprays in the morning. 12/04/2024 03/28/2025 Discontinued (Therapy completed)Start: 12-04-2024 take 2 spray(s) nasal route once dailyfluticasone (Flonase) 50 mcg/actuation nasal spray Administer 2 sprays into each nostril once daily. 12/04/2024 Active furosemide 20 mg oral tablet (20 sources)Loop DiureticStart: 24-76-0047tqbm 1 tablet by mouth in the morning Furosemide 40 MG Oral Tablet TAKE 1 TABLET BY MOUTH IN THE MORNING FOR 30 DAYS Quantity: 30 Refills: 0 Start : 19-Jan-2020 ActiveStart: 01-14-2020 End: 81-12-5726grdq 1 tablet by mouth once dailyFurosemide (Lasix) 20 mg tablet Discontinued 20 MG PO Daily January 14, 2020 12:00am January 11:22pm Start: 01-14-2020 End: 17-08-9577nrfn 2 tablets by mouth once dailyFurosemide (Lasix) 20 mg tablet Discontinued 40 MG PO Daily February 04, 2020 11:22pm May 07, 2020 9:36am On Hold: until restarted by your doctorgabapentin 300 mg oral capsule (20 sources)Anti-epileptic AgentStart: 06-38-4963fdck 1 capsule by mouth three times dailyGabapentin 300 MG Oral Capsule TAKE 1 CAPSULE BY MOUTH THREE TIMES DAILY FOR 30 DAYS Quantity: 90 Refills: 0 Start : 13-Jan-2020 ActiveStart: 05-16-2019 End: 25-80-7680vxlr 3 capsules by mouth three times dailyGabapentin 100 mg capsule Discontinued 300 MG PO Three times daily May 16, 2019 1:00am August 22, 2020 10:54amStart: 05-16-2019 End: 13-82-3281ztdnuhssiuj 600 mg oral tablet (20 sources)Peroxisome Proliferator Receptor alpha AgonistStart: 04-27-2017 End: 13-57-3739Lphpwustbsz 600 mg tablet Discontinued February 24, 2019 12:00am May 16, 2019 6:49pmStart: 04-27-2017 End: 73-29-8766kaup 1 tablet by mouth once daily at bedtimeGemfibrozil 600 mg tablet Discontinued 600 MG PO Daily at bedtime January 14, 2020 10:34am December 20, 2023 12:52amgentamicin 0.001 mg/mg topical ointment (20 sources)Start: 04-02-2023 End: 47-21-1486Ujtyisllau 0.1 % ointment Discontinued 1 APPLIC TOPICAL .twice weekly 15 April 02, 2023 12:00am June 04, 2023 4:53pm thin layer to left leg woundhydrOXYzine pamoate 25 mg oral capsule (20 sources)AntihistamineStart: 12-12-2020 End: 19-17-1565uwbc 1 capsule by mouth every eight hours as needed for muscle spasmsHydroxyzine Pamoate 25 mg Capsule Discontinued 25 MG PO Q8H as needed for Muscle Spasm December 19, 2020 12:00am October 01, 2021 10:27amindomethacin 50 mg oral capsule (20 sources)Nonsteroidal Anti-inflammatory DrugStart: 03-05-2022 End: 04-65-5153ileg 1 capsule by mouth twice daily as needed for pain Indomethacin 50 mg Capsule Discontinued 50 MG PO Twice daily as needed for Pain, Moderate 2021 12:00am June 04, 2023 4:53pm administer with food or milkStart: 12-46-0853fing 1 capsule by mouth twice daily at mealtime Indomethacin 50 MG Oral Capsule TAKE 1 CAPSULE BY MOUTH TWICE DAILY WITH FOOD Quantity: 60 Refills:0 Ordered: 03-Dec-2021 DO Start : 03-Dec-2021 ActiveStart: 05-08-2017 End: 43-96-2004upwl 1 capsule by mouth twice daily at mealtimeIndomethacin 25 mg Capsule Discontinued 25 MG PO Twice daily with meals 60 May 08, 2017 1:00am May 16, 2019 6:51pmlidocaine hydrochloride 0.02 mg/mg topical gel (4 sources)Antiarrhythmic, Amide Local AnestheticStart: 04-08-2024 End: 72-55-2798dpjguyywj (Uro-Jet) 2 % gel Indications: Non-pressure chronic ulcer of other part of left lower legwith fat layer exposed (CMS/HCC) Apply topically if needed for mild pain 60 mL 2 04/08/2024 06/13/2024 Discontinued (Therapy completed)magnesium oxide 400 mg oral tablet (17 sources)Start: 12-20-2023 End: 85-60-2035joid 1 tablet by mouth once dailyMagnesium Oxide 400 mg magnesium tablet Discontinued 400 MG PO Daily December 20, 2023 12:00am [place] 8th, 2024 8:20pmmeloxicam 7.5 mg oral tablet (20 sources)Nonsteroidal Anti-inflammatory DrugStart: 02-24-2019 End: 06-87-2567Fasyjtkcj 7.5 mg tablet Discontinued February 24, 2019 12:00am February 24, 2019 2:26pmStart: 01-19-2019 End: 77-76-7382kbvb 7.5 mg by mouth once dailyMeloxicam (Mobic) 15 mg Tablet Discontinued 7.5 MG PO Daily January 19, 2019 12:00am December 19784938:49am Start: 12-20-2018 End: 83-68-8394Rkaqcnlpx 7.5 mg tablet Discontinued TABLET February 23, 2019 11:00pm February 24, 2019 1:26pmStart: 04-27-2017 End: 61-48-1269lwni 1 tablet by mouth once dailyMeloxicam 7.5 mg Tablet Discontinued 7.5 MG PO Daily April 27, 2017 1:00am May 08, 2017 2:00pmStart: 07-03-5855whsx 1 tablet by mouth every twelve hoursMobic 7.5 MG 1 tablet Orally bid for 90 days Dec, Activeminocycline 100 mg oral capsule (20 sources)Tetracycline-class DrugStart: 03-16-2023 End: 60-71-8431pjgs 1 capsule by mouth twice dailyMinocycline 100 mg capsule Discontinued 100 MG PO 2 times daily March 16, 2023 12:00am April 02, 2023 2:12pmStart: 46-68-6506nkrs 1 capsule by mouth twice dailyMinocycline HCl - 100 MG Oral Capsule TAKE 1 CAPSULE BY MOUTH TWICE DAILY FOR 10 DAYS Quantity: 20 Refills: 0 Ordered: 25-Feb-2021 DO Start : 25-Feb-2021 Activeomeprazole 20 mg delayed release oral capsule (20 sources)Proton Pump InhibitorStart: 05-08-2017 End: 00-36-2475qbcu 1 capsule by mouth once dailyOmeprazole 20 mg Capsule,Delayed Release(Dr/Ec) Discontinued 20 MG PO Daily May 08, 2017 1:00am May 16, 2019 6:51pmoxybutynin chloride 5 mg oral tablet (20 sources)Cholinergic Muscarinic AntagonistStart: 05-05-2023 End: 82-41-9917kkej 1 tablet by mouth twice daily as needed for muscle spasms Oxybutynin Chloride 5 mg tablet Discontinued 5 MG PO Twice daily as needed for bladder spasms 60 May 05, 2023 1:00am June 04, 2023 4:53pmoxyCODONE hydrochloride 5 mg oral tablet (20 sources)Opioid AgonistStart: 12-20-2023 End: 40-53-6003vwoc 1 tablet by mouth every eight hours as needed for pain Oxycodone 5 mg Tablet Discontinued 5 MG PO Every 8 hours as needed for Severe Pain 10 3 December 20, 2023 December 23, 2023 2:06pmStart: 12-20-2023 End: 52-05-4962pcsl 1 tablet by mouth every four hours as needed for pain Oxycodone 5 mg Tablet Discontinued 5 MG PO Q4H as needed for Severe Pain 10 3 December 20, 2023 December 29, 2023 1:53pmStart: 12-20-2023 End: 87-76-0663gazk 1 tablet by mouth every six hours as needed for pain Oxycodone 5 mg Tablet Discontinued 5 MG PO Q6H as needed for Severe Pain 20 5 December 29, 2023 January 21, 2024 8:38pmpolyethylene glycol 3350 65724 mg powder for oral solution (20 sources)Osmotic LaxativeStart: 12-23-2023 End: 92-42-1161Pthovstmncch Glycol 3350 (Miralax) 17 gram/dose powder Discontinued 8.5 GM PO Daily 119 December 23, 2023 12:00am December 29, 2023 2:40pm Start: 12-23-2023 End: 47-46-3195Kzaymsoxslbq Glycol 3350 (Healthylax) 17 gram Powder In Packet Discontinued 17 GM PO Daily 0 December 29, 2023 12:00am January 21, 2024 8:38pm potassium chloride 20 meq extended release oral tablet (20 sources)Start: 84-45-8776qwfe 1 tablet by mouth once daily at mealtime Potassium Chloride Dorothy ER 20 MEQ Oral Tablet Extended Release TAKE 1 TABLET BY MOUTH ONCE DAILY WITH FOOD Quantity: 30 Refills: 0 Start : 20-Jan-2020 Active Start: 01-14-2020 End: 44-33-5651gmuh 20 mEq by mouth once dailyPotassium Chloride 20 mEq packet Discontinued 20 MEQ PO Daily January 14, 2020 12:00am August 22, 2020 10:55am On Hold: until restarted by your doctorpredniSONE 20 mg oral tablet (11 sources)Start: 10-04-2024 End: 88-50-9020wvekxwVGWO (Deltasone) 20 MG tablet Indications: Acute non- recurrent pansinusitis , Wheeze Take twotablets once a day for 5 days 10 tablet 10/04/2024 02/01/2025 DiscontinuedSennosides (Senokot) 8.6 mg tablet (9 sources)Start: 12-23-2023 End: 33-02-5390qskt 1 tablet by mouth twice daily as needed for constipation Sennosides (Senokot) 8.6 mg tablet Discontinued 8.6 MG PO Twice daily as needed for constipation 60July 2023 11:00pm December 29, 2023 1:40pmStart: 12-23-2023 End: 92-88-8735gtxe 1 tablet by mouth twice dailySennosides (Senokot) 8.6 mg tablet Discontinued 8.6 MG PO Twice daily 60 December 23, 2023 12:00am December 29, 2023 2:40pmStart: 26-82-9058muaf 1 tablet by mouth twice dailySennosides (Senokot) 8.6 mg tablet Active 8.6 MG PO Twice daily 60 December 23, 2023 12:00am sennosides, nursing home 8.6 mg oral tablet (2 sources)Start: 12-23-2023 End: 97-49-0822avqe 1 tablet by mouth twice daily as needed for constipation Sennosides (Senokot) 8.6 mg tablet Discontinued 8.6 MG PO Twice daily as needed for constipation 60July 2023 12:00am December 29, 2023 2:40pmvitamin b12 0.5 mg oral tablet (20 sources)Vitamin H94Uxtcq: 05-08-2017 End: 50-72-5615lwst 2 tablets by mouth once daily in the morningCyanocobalamin (Vitamin B-12) (Vitamin B-12) 500 mcg Tablet Discontinued 1000 MCG PO Every morning May 08, 2017 1:00am May 16, 2019 6:51pmzeaxanthin (9 sources) End: 94-00-4284yyss 1 capsule by mouth in the morningZeaxanthin powder Take 1 capsule by mouth in the morning. 03/28/2025 Discontinued (Therapy completed)take 1 capsule by mouth in the morningZeaxanthin powder Take 1 capsule by mouth in the morning. Active Problems Active Problems Problem ClassificationProblemDateDocumented DateEpisodic/Chronic Administrative/social admission (20 sources)Other reduced mobility; Translations: [Impaired mobility and activities of daily living]92-09-8918CjfjpvqkMacunodi reactions (20 sources)Inflammatory dermatosis; Translations: [Dermatitis, unspecified] Onset: 947972-01-7213FyebudzlKorpnss disorders (2 sources)Mixed anxiety and depressive disorder; Translations: [Other specified anxiety disorders]00-45-2820ZqmvhmjBdmvyqhtg and vision defects (20 sources)Blurring of visual image; Translations: [Other visual disturbances] 41-89-0929EtvxnhorGyyoef of bladder (20 sources)Cancer in situ of urinary bladder; Translations: [Carcinoma in situ of bladder]Onset: 762669-52-5243XmvooilJoajsy of bladder (20 sources)H/O: malignant neoplasm; Translations: [Personal history of malignant neoplasm of bladder]Onset: 431000-95-7311LryxlkouRchxxl of prostate (20 sources)Malignant tumor of prostate; Translations: [Malignant neoplasm of prostate]Onset: 916948-00-7458QkxmuuhPaszpk of prostate (20 sources)History of malignant neoplasm of prostate; Translations: [Personal history of malignant neoplasm ofprostate]Onset: 660482-06-1238Saethaom Cardiac dysrhythmias (20 sources)Atrial fibrillation; Translations: [Atrial fibrillation]Onset: 10-27-2014 Resolved: 128339-48-9217SsjvedpMpmnotg kidney disease (10 sources)Chronic kidney disease stage 2; Translations: [Chronic kidney disease, stage 2 (mild)]Onset: 731784-01-7865PlvrsmdTtrguvk obstructive pulmonary disease and bronchiectasis (20 sources)Centriacinar emphysema; Translations: [Other emphysema]Onset: 12-05-2022 Resolved: 208464-96-2021MbrrqsjEdutnra ulcer of skin (1 source)Non-pressure chronic ulcer of other part of left lower leg with fat layer exposed; Translations: [Ulcer of other part of lower limb]04-08-2024 ChronicConditions associated with dizziness or vertigo (20 sources)Dizziness and giddiness; Translations: [Vertigo of central origin] Onset: 876090-52-2676FozfucivUxrrntqfye disorders (20 sources)Bundle branch block; Translations: [Nonspecific intraventricular block]33-53-5361PhjgzigMmenbxqbuq heart failure; nonhypertensive (20 sources)Acute on chronic combined systolic and diastolic heart failure; Translations: [Acute on chronic combined systolic and diastolic heart failure] Onset: 12-05-2022 Resolved: 275867-24-6617GbkrafjIegxmfic atherosclerosis and other heart disease (20 sources)Coronary arteriosclerosis; Translations: [Atherosclerotic heart disease of red devil coronary artery without angina pectoris]Onset: 01-28-2023 14-55-3569CwckivhWvfnekml mellitus without complication (20 sources)Diabetes mellitus; Translations: [Diabetes mellitus without mention of complication, type II or unspecified type, not stated as uncontrolled]Onset: 830996-90-4925HrzqbenXgdgwfw on above:Pt doesn't take any medsDisorders of lipid metabolism (20 sources)Hyperlipidemia; Translations: [Hyperlipidemia, unspecified]Onset: 10-27-2014 Resolved: 586128-58-3911DfhrpsnGzjzqtvzrskvfx and diverticulitis (20 sources)Diverticular disease; Translations: [Diverticulosis of intestine, part unspecified, without perforation or abscess without bleeding]Onset: 827302-08-5858BmtvartC Codes: Fall (20 sources)Fall; Translations: [Unspecified fall, initial encounter]Onset: 156968-04-3304NqixauuiDzntngqqik disorders (20 sources)Gastroesophageal reflux disease without esophagitis; Translations: [Gastro-esophageal reflux disease without esophagitis]Onset: 06-10-2019 45-29-7157SxkhvchFsokrsmus hypertension (20 sources)Hypertensive disorder; Translations: [Essential (primary) hypertension]Onset: 632587-29-9490DymefapYjrbr and electrolyte disorders (1 source)Dehydration; Translations: [DEHYDRATION]Onset: 93-68-1921Tdimmdwz Fracture of lower limb (20 sources)Fracture of patella; Translations: [Unspecified fracture of right patella, initial encounter for closed fracture]40-45-4845PnrfxohxEopmzlbo of neck of femur (hip) (20 sources)Closed fracture of femur, greater trochanter; Translations: [Nondisplaced fracture of greater trochanter of left femur, subsequent encounter for closed fracture with routine healing]42-22-3373IexxcwycSzoj and other crystal arthropathies (20 sources)Gouty arthritis of right foot; Translations: [Gout, unspecified] Onset: 06-16-2019 Resolved: 77-64-8686WidtuifBlkje valve disorders (20 sources)Aortic valve stenosis; Translations: [History of aortic valve replacement]Onset: 02-20-2022 Resolved: 819995-54-7315VxkpsryUfzcwrj and fatigue (20 sources)Asthenia; Translations: [Weakness]45-36-4555NvxonqerAoic disorders (2 sources)Moderate major depression ; Translations: [Major depressive disorder, single episode, moderate]40-57-2513MrneshyOupk wounds of extremities (20 sources)Tear of skin; Translations: [Laceration without foreign body, left lower leg, initial encounter]01-21-4328DuispbyyIibd wounds of head; neck; and trunk (6 sources)Laceration of forehead; Translations: [Laceration without foreign body of other part of head, initial encounter]51-76-8126RukphiskLalrsbptovsqmx (20 sources)Degenerative joint disease of hand; Translations: [Primary osteoarthritis, left hand]Onset: 03-19-2021 Resolved: 76-06-0710IjkellbUvemr aftercare (6 sources)Drug therapy finding; Translations: [Long-term (current) use of other medications]EpisodicOther aftercare (8 sources)Anticoagulant effect; Translations: [half-way (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]13-48-3265JjlubbapGqsva aftercare (6 sources)Long-term current use of anticoagulant; Translations: [half-way (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]Onset: 588756-80-2025ZonnoqxrEdxjs aftercare (5 sources)Encounter for therapeutic drug level monitoring; Translations: [ENC THERAPEUTC DRUG LEVL MONITORING]Onset: 18-90-9187HzszzfnaHdlgm aftercare (3 sources)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; Translations: [COOK HELPER FRUIT CURRNT USE ANTICOAGULANTS]Onset: 42-36-1873ElsdpwydKbfws connective tissue disease (4 sources)History of total replacement of right hip joint; Translations: [Presence of right artificial hip joint]ChronicOther connective tissue disease (3 sources)Presence of right artificial hip joint; Translations: [History of total replacement of right hip Z96.641]Onset: 03-19-2021 Resolved: 00-18-5118NkscwmoHdvah connective tissue disease (20 sources)History of total hip arthroplasty; Translations: [Presence of right artificial hip joint]07-23-5987LheesrzAayeu connective tissue disease (20 sources)Musculoskeletal pain; Translations: [Myalgia, other site]Onset: 604918-48-0308HxufefofDxjkx connective tissue disease (1 source)Other symptoms and signs involving the nervous systemEpisodicOther connective tissue disease (3 sources)Disorder of rotator cuff; Translations: [Unspecified rotator cuff tear or rupture of right shoulder, not specified as traumatic]47-00-7828Zypultva Other connective tissue disease (5 sources)Biceps tendinitis; Translations: [Bicipital tendinitis, right shoulder]61-86-8394QtqqcgsfLrqpf connective tissue disease (2 sources)Bicipital tendinitis, right shoulder; Translations: [Bicipital tenosynovitis]16-24-4020QrcgaunwCgrst connective tissue disease (2 sources)Unspecified rotator cuff tear or rupture of right shoulder, not specified as traumatic; Translations: [Disorders of bursae and tendons in shoulder region, unspecified]95-24-5966LcqixzysSyeom connective tissue disease (4 sources)Swelling of left lower limb; Translations: [Other specified soft tissue disorders]83-45-0344WlpdhbunOjtjp connective tissue disease (2 sources)Nontraumatic rotator cuff tear; Translations: [Unspecified rotator cuff tear or rupture of right shoulder, not specified as traumatic]03-07-2024 EpisodicOther connective tissue disease (2 sources)Right rotator cuff syndrome; Translations: [Unspecified rotator cuff tear or rupture of right shoulder, not specified as traumatic]44-08-9707Dfuootfn Other connective tissue disease (2 sources)Pain in left foot; Translations: [Pain in left foot]04-30-2017 EpisodicOther connective tissue disease (2 sources)Recurrent falls ; Translations: [Repeated falls]39-25-6819Byrwblbw Other diseases of kidney and ureters (20 sources)Hydronephrosis with renal and ureteral calculous obstruction; Translations: [Hydronephrosis with urinary obstruction due to ureteral calculus] 98-24-2686UouzdypbWscmy diseases of veins and lymphatics (6 sources)Venous hypertension of lower limb; Translations: [Chronic venous hypertension (idiopathic) with inflammation of left lower extremity]Onset: 807225-57-9559AfzlwsmAynzd diseases of veins and lymphatics (20 sources)Chronic peripheral venous hypertension; Translations: [Chronic venous hypertension (idiopathic) with inflammation of left lower extremity] Onset: 550363-99-2994BuikzgkYazkq diseases of veins and lymphatics (20 sources)Venous insufficiency of leg; Translations: [Other specified disorders of veins]63-94-5008OuzzontgNofco diseases of veins and lymphatics (10 sources)Stasis dermatitis; Translations: [Venous insufficiency (chronic) (peripheral)]92-38-5371JqxblphfVwbng diseases of veins and lymphatics (18 sources)Disorder of vein of lower extremity; Translations: [Venous insufficiency (chronic) (peripheral)]90-96-1699YuhmtmcoFteti diseases of veins and lymphatics (11 sources)Other specified disorders of veins; Translations: [Venous (peripheral) insufficiency, unspecified]43-08-2317FiiaoymsZdavn ear and sense organ disorders (2 sources)Wax in ear canal; Translations: [Impacted cerumen, left ear] 33-41-8995VwrtfhzgJehjg hereditary and degenerative nervous system conditions (1 source)Restless legs syndrome; Translations: [RESTLESS LEGS SYNDROME]Onset: 34-11-4143NbvxfwlUqzkh infections; including parasitic (20 sources)Disorder due to infection; Translations: [Unspecified infectious disease]59-06-2888OkujifiaZwqev injuries and conditions due to external causes (18 sources)Injury of right knee; Translations: [Unspecified injury of right lower leg, initial encounter]08-29-8143EdocjtqhLkdgp injuries and conditions due to external causes (20 sources)Unspecified injury of right lower leg, initial encounter; Translations: [Knee, leg, ankle, and footinjury]62-97-6450LqojsqepEmzzg injuries and conditions due to external causes (4 sources)Blood blister; Translations: [Other injury of unspecified body region, initial encounter]49-85-7385VnjtpoxfEnjlw injuries and conditions due to external causes (3 sources)Audmc69-29-7249MriesprhAopme injuries and conditions due to external causes (2 sources)Contusion; Translations: [Other injury of unspecified body region, initial encounter]89-56-1924ZpvgqxwyXrzyi injuries and conditions due to external causes (2 sources)Other specified injuries of thorax, initial encounter; Translations: [Contusion of rib on right side]81-13-3362AjvlznivQbqri injuries and conditions due to external causes (4 sources)Multiple lacerations; Translations: [Other injury of unspecified body region, initial encounter]98-00-9740JumhkqinHzhjs injuries and conditions due to external causes (4 sources)Injury of head; Translations: [Unspecified injury of head, initial encounter]82-74-8757HzumgxrkThhne injuries and conditions due to external causes (2 sources)Other injury of unspecified body region, initial encounter; Translations: [Other injury of unspecified body region, initial encounter]Onset: 81-12-0899CmworehyPsbyc lower respiratory disease (20 sources)Hypoxia; Translations: [Hypoxemia]04-13-2567RkjphsrwMfymj lower respiratory disease (2 sources)Cough; Translations: [Acute cough]68-89-2552BdxorwhwHkgkj lower respiratory disease (2 sources)Wheezing; Translations: [Wheezing]93-83-2657HrvlrivxXzpld lower respiratory disease (4 sources)Chronic cough; Translations: [Chronic cough]99-30-7798CjvkexgbNoffa nervous system disorders (4 sources)Chronic pain; Translations: [Other chronic pain]ChronicOther nervous system disorders (20 sources)Impairment of balance; Translations: [Other abnormalities of gait and mobility]Onset: 570229-44-3181KgzxvmuqKrkog nervous system disorders (11 sources)Paresthesia of upper limb; Translations: [Anesthesia of skin] 64-90-2649YmllbobsOgall nervous system disorders (8 sources)Anesthesia of skin; Translations: [Disturbance of skin sensation] 33-24-5145JndovrjzNzcin nervous system disorders (4 sources)Hyperreflexia; Translations: [Abnormal reflex]32-84-5922CppcynmjKynng non-traumatic joint disorders (9 sources)Pain in right shoulder; Translations: [Right shoulder pain]Onset: 20-71-6621AmqaxyqdIaxse non-traumatic joint disorders (20 sources)Pain in unspecified knee; Translations: [Knee pain]12-22-2023 EpisodicOther non-traumatic joint disorders (14 sources)Hemarthrosis; Translations: [Hemarthrosis, unspecified joint] 53-15-9791NiqrryzhBocor non-traumatic joint disorders (11 sources)Hemarthrosis, unspecified joint; Translations: [Hemarthrosis, site unspecified]21-44-8159SaaabxzsNcvtm nutritional; endocrine; and metabolic disorders (16 sources)Hypomagnesemia; Translations: [Disorders of magnesium metabolism] Resolved: 703455-86-8848OchncolMcjpn nutritional; endocrine; and metabolic disorders (4 sources)Hypomagnesemia; Translations: [Disorders of magnesium metabolism] 26-06-1946GrptmvmReyli nutritional; endocrine; and metabolic disorders (5 sources)Overweight in adulthood with body mass index of 25 or more but less than 30; Translations: [Overweight]EpisodicOther screening for suspected conditions (not mental disorders or infectious disease) (20 sources)Protein level - finding; Translations: [Other specified abnormal findings of blood chemistry]21-88-9024OkexxakzHupam skin disorders (20 sources)Thin skin; Translations: [Changes in skin texture]84-58-5409Xnhwstnw Other skin disorders (6 sources)Changes in skin texture; Translations: [Other specified disorders of skin]14-26-5138NbkqavjeEjxes skin disorders (2 sources)Seborrheic keratosis; Translations: [Other seborrheic keratosis] 74-94-2542QihqxkwoBexwa upper respiratory disease (4 sources)Chronic laryngitis; Translations: [Chronic laryngitis]ChronicOther upper respiratory disease (4 sources)Bowing of vocal cord; Translations: [Other diseases of vocal cords] EpisodicOther upper respiratory disease (4 sources)Laryngopharyngeal reflux; Translations: [Other diseases of larynx] EpisodicOther upper respiratory disease (4 sources)O/E - dysphonia; Translations: [Dysphonia]EpisodicOther upper respiratory disease (2 sources)Congestion of nasal sinus; Translations: [Nasal congestion]11-20-2024 EpisodicOther upper respiratory disease (2 sources)Pain in throat; Translations: [Pain in throat]89-99-9063DkovwoyuXmvsj upper respiratory disease (4 sources)Bleeding from nose; Translations: [Epistaxis]37-69-9956YhfspzvvKnhsf upper respiratory infections (2 sources)Acute pansinusitis; Translations: [Acute pansinusitis, unspecified] 37-71-8098XmkrfofvApscfp media and related conditions (2 sources)Dysfunction of bilateral eustachian tubes; Translations: [Unspecified Eustachian tube disorder, bilateral]75-60-9766ZxolwcjqQelqqbunmn and visceral atherosclerosis (20 sources)Peripheral vascular disease, unspecified; Translations: [Peripheral vascular disease]Onset: 870720-58-1889PkikqpmEeizwghzq (except that caused by tuberculosis or sexually transmitted disease) (20 sources)Pneumonia; Translations: [Pneumonia, unspecified organism]05-17-2019 EpisodicPulmonary heart disease (20 sources)Pulmonary hypertension; Translations: [Other chronic pulmonary heart diseases]Onset: 278999-81-5669LaemtrzTofrjpu on above:Moderate, RVSP 50- 55 mmHg echo February 2021;Residual codes; unclassified (20 sources)Edema of left lower leg; Translations: [Localized edema]10-15-2021 EpisodicResidual codes; unclassified (20 sources)Edema of right lower leg; Translations: [Localized edema]11-06-2021 EpisodicResidual codes; unclassified (20 sources)Pain; Translations: [Pain, unspecified]03-48-3409MdgvccazQasxdaox codes; unclassified (20 sources)Edema; Translations: [Edema, unspecified]37-82-1132PjjlxpbyPvcansfg codes; unclassified (20 sources)Patient encounter status; Translations: [Encounter for prophylactic measures, unspecified]02-64-4587SkntwhrhByelzsxh codes; unclassified (20 sources)At risk for impaired skin integrity ; Translations: [Other specified personal risk factors, not elsewhere classified]61-42-2369HyvvbhswXdcxypab codes; unclassified (6 sources)Other specified personal risk factors, not elsewhere classified; Translations: [Other specified conditions influencing health status]03-19-2022 EpisodicResidual codes; unclassified (9 sources)Body mass index 20-24 - normal; Translations: [Body Mass Index between 19-24, adult]Onset: 846520-13-4375UckpbhonLifykohw codes; unclassified (16 sources)Pain, unspecified; Translations: [Generalized pain]04-02-2023 EpisodicResidual codes; unclassified (3 sources)Inflammatory jsbiksug34-52-0175HzrzwmsvXitbsknd codes; unclassified (1 source)Beta ca contraindicated; Translations: [Procedure and treatment not carried out because of other contraindication]Onset: EpisodicResidual codes; unclassified (2 sources)Congestion of throat; Translations: [Other general symptoms and signs]51-91-7019YaoooayxSpyz and subcutaneous tissue infections (20 sources)Cellulitis; Translations: [Cellulitis, unspecified]10-08-2021 EpisodicSpondylosis; intervertebral disc disorders; other back problems (20 sources)Cervical spondylosis without myelopathy; Translations: [Spondylosis without myelopathy or radiculopathy, cervical region]Onset: 40-97-8695Haqismy Spondylosis; intervertebral disc disorders; other back problems (20 sources)Sciatica; Translations: [Lumbago with sciatica, unspecified side] Onset: 229626-42-3775NvlmyywqEknlwxjzzxv injury; contusion (20 sources)Injury of forehead; Translations: [Contusion of other part of head, initial encounter]53-72-7310EnfbemtsVrvcwbi (20 sources)Near syncope; Translations: [Syncope and collapse]Onset: 10-08-2022 49-07-5704YnksgyuiHrlmpobfa cerebral ischemia (20 sources)Transient cerebral ischemia; Translations: [Transient cerebral ischemic attack, unspecified]45-69-8319WtnjsodRaxqfwdlkxmc (1 source)Permanent atrial fibrillation; Translations: [Permanent atrial fibrillation]Onset: 57-11-4522Kwolxeuaxeym (7 sources)Chronic atrial fibrillation, unspecified; Translations: [CHRONIC ATRIAL FIBRILLATION UNSPEC]Onset: 17-40-5576Hqyvkpbylmhb (4 sources)LOW BACK PAIN, UNSPECIFIED; Translations: [LOW BACK PAIN, UNSPECIFIED]Onset: 04-70-9901Erxgkqrxmnky (20 sources)Inflammatory disorder; Translations: [Inflammation]02-26-2023 Unclassified (1 source)You have been scheduled for a follow up appointment for the following date and time, please call to reschedule if needed.Urinary tract infections (3 sources)Urinary tract infectious disease; Translations: [Urinary tract infection, site not specified]97-33-9885EljwnfqmNhstdxmg veins of lower extremity (20 sources)Venous stasis ulcer of leg; Translations: [Varicose veins of right lower extremity with ulcer of unspecified site]06-44-5675Sdohvhqn Past or Other Problems Problem ClassificationProblemDateDocumented DateEpisodic/ChronicAbdominal pain (1 source)Unspecified abdominal pain; Translations: [Unspecified abdominal pain] Onset: 18-96-2937QielkzjkYxalvcft of urinary tract (20 sources)History of calculus of kidney; Translations: [Personal history of urinary calculi]Onset: 003061-39-6926TkrokzfvBkmduowjib and other anemia (20 sources)Anemia; Translations: [Anemia, unspecified]Onset: 01-28-2023 05-94-3695XhcvomkrHtxolxme mellitus with complications (20 sources)Type 2 diabetes mellitus; Translations: [Type 2 diabetes mellitus with other specified complication]Onset: 01-11-2019 Resolved: 005544-60-2927EwlguopCnfrxdfy mellitus without complication (20 sources)Prediabetes; Translations: [Prediabetes]Onset: 187116-47-8577 EpisodicMood disorders (17 sources)Mood disordersOnset: Other aftercare (3 sources)Taking high risk medication; Translations: [Other exterminator helper (current) drug therapy]Onset: 04-18-2024 Resolved: 097475-62-2389ZunfcwhqZwimx circulatory disease (1 source)H/O: heart disorder; Translations: [Personal history of other diseases of circulatory system] Resolved: 13-23-6028HpotauscZholp circulatory disease (17 sources)History of transient ischemic attack; Translations: [Personal history of transient ischemic attack (TIA), and cerebral infarction without residual deficits]Onset: 421504-82-0176RmbmwokvDqicf connective tissue disease (2 sources)Pain in left legOnset: 05-15-2021 Resolved: 69-49-6724KqwgiyaqYqign connective tissue disease (2 sources)Muscle weakness (generalized)Onset: 05-15-2021 Resolved: 43-88-5837BvfafqluBgyve connective tissue disease (20 sources)Foot pain; Translations: [Pain in left foot]Onset: 06-16-2019 71-20-1755MnwxmhzoGhann connective tissue disease (1 source)Sarcopenia; Translations: [SARCOPENIA]Onset: 96-81-3442KziploonPwrur connective tissue disease (20 sources)H/O: gout; Translations: [Personal history of other diseases of the musculoskeletal system and connective tissue]Onset: 023371-19-7235Dwxfhuql Other connective tissue disease (2 sources)Muscle weakness; Translations: [Muscle weakness (generalized)] 47-30-9999DuywydggBvqgd diseases of veins and lymphatics (20 sources)Peripheral venous insufficiency; Translations: [Venous insufficiency (chronic) (peripheral)]Onset: 354327-22-1043SiobbzzjYwzds diseases of veins and lymphatics (1 source)Venous insufficiency (chronic) (peripheral); Translations: [Venous insufficiency (chronic) (peripheral)]Onset: 60-33-9656RsjrakxyOpddh lower respiratory disease (11 sources)Dyspnea on exertion; Translations: [Other respiratory abnormalities] Resolved: 09-67-9584FogiajdbRanym lower respiratory disease (6 sources)Difficulty breathing; Translations: [Other respiratory abnormalities] Resolved: 99-63-7171QjiunyuhZpauk non-epithelial cancer of skin (10 sources)History of malignant neoplasm of skin excluding melanoma; Translations: [Personal history of other malignant neoplasm of skin]Onset: 409796-82-6575TqcfcjqxEqoetpea codes; unclassified (6 sources)Edema of lower extremity; Translations: [Edema] Resolved: 26-85-8929UwbggbysZgtspemt codes; unclassified (20 sources)Tobacco user; Translations: [Tobacco use]Onset: EpisodicResidual codes; unclassified (2 sources)Body mass index (BMI) 24.0-24.9, adult; Translations: [Body mass index (BMI) 24.0-24.9, adult]Onset: 14-10-6869MerbpyyxEmxeeahx codes; unclassified (2 sources)Body mass index (BMI) 23.0-23.9, adult; Translations: [Body mass index (BMI) 23.0-23.9, adult]Onset: 74-12-0781QrqkrdzoTknwvodqt and history of mental health and substance abuse codes (18 sources)Ex-smoker; Translations: [Personal history of tobacco use]Onset: 050292-79-9240ChwyyducVycfpqt on above:QUIT 2000 1PPD;Unclassified (20 sources)Wound ; Translations: [Traumatic wound]84-53-5477Snqyfdkowbpr (1 source)LOW BACK PAIN, UNSPECIFIED; Translations: [LOW BACK PAIN, UNSPECIFIED] Onset: 80-72-8379Xsmrcmzazquc (5 sources)Onset: 09-29-2023 Resolved: 578184-11-7920JVVXNYO: Highlighted row has not occurred!Residual codes; unclassified (8 sources)DiseaseEpisodic Results Test NameValueInterpretationReference RangeFacilityWound Care Noteon 03-27-2025 Wound Care [id number]#1.00OTGTAdena Health System Metabolic Panelon 60-13-4448Hokhovcyrc Clr Calc Dasentxb85.75 NormalThe [facility] Physician GroupComment on above:Result Comment: PERFORMED BY: [facility] [address] [id number] PATHOLOGIST [employer]ER[employer] SUPERVISOR BHANU RIOS M.D.Performed By: #### CBC, PT, BMP ####[address] [address] USAGFR/1.73 sq M.predicted MDRD (S/P/Bld) [Vol rate/Area]mL/min/{1.73_m2}NormalThe [facility] Physician Group Comment on above:Performed By: #### CBC, PT, BMP ####[address] [address] USABasophils [#/volume] in Blood by Automated countOrdered By: [employer]o GATe Technologyzan-[employer] on 44-19-9641Dcdftlbqt (Bld) [#/Vol]0.0 10*3/uLNormal0.0-0.2FSt. Anthony's HospitalComment on above:Result Comment: PERFORMED BY: [facility] [address] [place] [address] PATHOLOGIST [employer]ER[employer] SUPERVISOR BHANU RIOS M.D.Performed By: #### CBC, PT, BMP ####[address] [address] USABasophils/100 leukocytes in Blood by Automated countOrdered By: DrakerzanSpotXchangeGrupo on 03-22-2025 Basophils/100 WBC (Bld)0.4 %Normal.[facility] HospitalComment on above:Performed By: #### CBC, PT, BMP ####[address] [address] USACalcium [Mass/volume] in Serum or Plasma Ordered By: [employer] GATe [employer]zan[employer] on 45-63-3344Oexfcah [Mass/Vol]8.5 mg/dLLow 8.6-10.3FSt. Anthony's HospitalComment on above:Performed By: #### CBC, PT, BMP ####[address] [address] USACarbon dioxide, total [Moles/volume] in Serum or PlasmaOrdered By: Nicoletto Bolzan-Gr[employer] on 63-43-0899GJ0 [Moles/Vol]23.4 mmol/PGdhiur01.0-31.0 [facility] HospitalComment on above:Performed By: #### CBC, PT, BMP ####[place] [address] [place] Chloride [Moles/volume] in Serum or PlasmaOrdered By: Nicoletto Bolzan-Gr[employer] on 90-45-2426Kwinovsx [Moles/Vol]107 mmol/XFahqqb96-139MkvqnihfmMercy Health Lorain HospitalComment on above:Performed By: #### CBC, PT, BMP ####[place] [address] USAComplete Blood Count Auto Diff on 93-78-9846Sdva Corpuscular HGB Conc32.5 g/vQLqwvdn14.5-35.6The [facility] Physician GroupComment on above:Performed By: #### CBC, PT, BMP ####[place] [id number] USAMonocytes/100 WBC (Bld)17.70 %Normal0.00-20.00The [facility] Physician GroupComment on above: Performed By: #### CBC, PT, BMP ####[place] [address] USANRBC%0.6 /100{WBC}High0-0.5The [facility] Physician GroupComment on above:Performed By: #### CBC, PT, BMP ####[place] [address] USAWhite Blood Count5.2 [CFU]/mL Normal4.1-10.5The [facility] Physician GroupComment on above:Performed By: #### CBC, PT, BMP ####[place] [address] USACreatinine [Mass/volume] in Serum or PlasmaOrdered By: [employer]o GAT[employer]zan[employer] on 94-49-3453Ettzsuwzod [Mass/Vol]0.74 mg/dLNormal0.70-1.30 [facility] HospitalComment on above:Performed By: #### CBC, PT, BMP ####[address] Eosinophils [#/volume] in Blood by Automated countOrdered By: NicoApp47zan- [employer] on 09-47-4699Yetwlxsjzbn (Bld) [#/Vol]0.0 10*3/uLNormal0.0-0.45[facility] HospitalComment on above:Performed By: #### CBC, PT, BMP ####[place] [address] [place] Eosinophils/100 leukocytes in Blood by Automated countOrdered By: Nico[employer]47zan-[employer] on 24-35-4375Vnlyqgbdlsv/100 WBC (Bld)0.4 %Normal.[facility] HospitalComment on above:Performed By: #### CBC, PT, BMP ####[address] Erythrocyte distribution width [Ratio] by Automated countOrdered By: Luis FApp47zan-[employer] on 84-58-0374Stzjetmwvzm distribution width (RBC) [Ratio]17.6 %High 12.0-14.8[facility] HospitalComforest health medical center on above:Performed By: #### CBC, PT, BMP ####[place] [address] USAErythrocytes [#/volume] in Blood by Automated countOrdered By: NicoApp47zan-[employer] on 14-00-4192RXC (Bld) [#/Vol]3.57 10*6/uLLow3.90-5.60 [facility] HospitalComforest health medical center on above:Performed By: #### CBC, PT, BMP ####[address] Glomerular filtration rate [Volume Rate/Area] in Serum, Plasma or Blood by CreatinineOrdered By: [employer]AT[employer]zan[employer] on 23-06-3874Wkfupkiuuo filtration rate [Volume Rate/Area] in Serum, Plasma or Blood by Creatinine> 60.0 mL/Min [facility] HospitalGlucose [Mass/volume] in Serum or PlasmaOrdered By: Luis FPickup Servicessalud GATe TechnologykaminiVoxeo on 81-50-6630Txyznpe [Mass/Vol]107 mg/aDYmcb17-795 [facility] HospitalComment on above:ADA recommended reference rangeRandom Glucose Reference Range is dependent on time and content of last meal. Glucose of more than 200 mg/dL in a nonstressed, ambulatory subject supports the diagnosisof Diabetes Mellitus.Result Comment: Random Glucose Reference Range is dependent on time and content of last meal. Glucose of more than 200 mg/dL in a nonstressed, ambulatory subject supports the diagnosis of Diabetes Mellitus. ADA recommended reference rangePerformed By: #### CBC, PT, BMP ####[place] [address] [place] [address] USAHematocrit [Volume Fraction] of Blood by Automated countOrdered By: LaurePetSitnStaykaminiVoxeo on 48-10-2159Ilhcvuacqx (Bld) [Volume fraction]30.9 %Low38.8-50.0[facility] HospitalComment on above:Performed By: #### CBC, PT, BMP ####[address] [address] USAHemoglobin [Mass/volume] in BloodOrdered By: Luis FPickup Servicessalud GATe TechnologykaminiVoxeo on 88-64-7467Itbmwrnqec (Bld) [Mass/Vol]10.0 g/dLLow13.0-17.0[facility] HospitalComment on above:Performed By: #### CBC, PT, BMP ####[address] [address] USAINR in Platelet poor plasma by Coagulation assayOrdered By: [employer] on 22-57-2310AJH Coag (PPP) [Relative time]2.3 {INR}NormalMercy Health Lorain HospitalComment on above:INR Therapeutic Range A) Pre- and Peroperative OAT started two weeks before surgery. NOT HIP SURGERY: 1.5 - 2.5 HIP SURGERY: 2 - 3B) Primary and secondary prevention of venous THROMBOSIS: 2 - 3C) Active venous thrombosis, pulmonary embolismand prevention of recurrent venous thrombosis: 2 - 3D) Prevention of arterial thromboembolismincluding patients with mechanical heart valves: 3 - 4.5Result Comment: INR Therapeutic Range A) Pre- and [...] heart valves: 3 - 4.5 PERFORMED BY: [facility] [address] [place] [address] PATHOLOGIST AD[employer]ER[employer] SUPERVISOR BHANU RIOS M.D.Performed By: #### CBC, PT, BMP ####[place] [address] [place] [address] USALeukocytes [#/volume] corrected for nucleated erythrocytes in Blood by Automated counOrdered By: [employer]o [employer]AT[employer]zan[employer] on 84-45-7138HZC corrected for nucl RBC Auto (Bld) [#/Vol]5.2 10*3/uL4.1-10.5FSt. Anthony's HospitalLeukocytes [#/volume] in Blood by Automated countOrdered By: Grayson GATe Technologyzan-Grupo on 29-52-9576CZM (Bld) [#/Vol]5.2 10*3/uLNormal4.1-10.5FSt. Anthony's HospitalComment on above:Performed By: #### CBC, PT, BMP ####[place] [address] [place] [address] USALymphocytes [#/volume] in Blood by Automated countOrdered By: NicoApp47zan-Gr[employer] on 89-76-9480Gpaopzxdwif (Bld) [#/Vol] 1.1 10*3/uLNormal1.00-4.8[facility] HospitalComment on above: Performed By: #### CBC, PT, BMP ####[address] [address] USALymphocytes/100 leukocytes in Blood by Automated countOrdered By: Laureo Reenazan-Grupo on 48-76-5329Bkyeaaugreh/100 WBC (Bld) 20.7 %Normal.[facility] HospitalComment on above:Performed By: #### CBC, PT, BMP ####[place] [address] [place] [address] [facility] [Entitic mass] by Automated countOrdered By: Grayson Valleszan- Grupo on 25-91-0726CAU (RBC) [Entitic mass]28.1 tdPyplvy37.5-35.2FSt. Anthony's HospitalComment on above:Performed By: #### CBC, PT, BMP ####[place] [id number] [facility] Auto (RBC) [Mass/Vol]Ordered By: Grayson Valleszan-Grupo on 64-72-6719CNEM (RBC) [Mass/Vol]32.5 g/dL32.5-35.6FSt. Anthony's HospitalMCV [Entitic volume] by Automated countOrdered By: Laureo Reenazan-Grupo on 19-46-3119YSA (RBC) [Entitic vol]86.5 fOQrmiwt05.5-101[facility] HospitalComment on above:Performed By: #### CBC, PT, BMP ####[place] [address] USAMonocyte distribution width [Entitic volume] in Blood by AutomatedOrdered By: Laureo Bolzan-Grupo on 17-59-0212Enxrfzuj distribution width Auto (Bld) [Entitic vol]17.70 %0.00-20.00[facility] HospitalMonocytes [#/volume] in Blood by Automated countOrdered By: Laureo Bolzan-Grupo on 38-51-9796Hjvyxzcai (Bld) [#/Vol]1.1 10*3/uLHigh 0.0-0.8[facility] HospitalComment on above:Performed By: #### CBC, PT, BMP ####[place] [address] USAMonocytes/100 leukocytes in Blood by Automated countOrdered By: Nicoletto Bolzan-Gr[employer] on 91-44-8280Qpkstjhnx/100 WBC (Bld)21.1 %Normal.[facility] HospitalComment on above:Performed By: #### CBC, PT, BMP ####[address] [address] USANeutrophils [#/volume] in Blood by Automated countOrdered By: Laureo Reenazan-Grupo on 82-55-4046Lrarewtzosd (Bld) [#/Vol]3.0 10*3/uLNormal1.8-7.7FSt. Anthony's HospitalComment on above:Performed By: #### CBC, PT, BMP ####[place] [id number] USANeutrophils/100 leukocytes in Blood by Automated countOrdered By: Laureo Reenazan-Grupo on 35-65-1050Plkdfbjcdzl/100 WBC (Bld)57.4 %Normal.[facility] HospitalComforest health medical center on above:Performed By: #### CBC, PT, BMP ####[place] [id number] USANo Panel InformationOrdered By: Laureo Reenazan-Grupo on 44-26-1261Fopunrwz Creatinine Clearance (Chem61.75 [facility]ain HospitalNucleated erythrocytes [Presence] in Blood by Automated countOrdered By: Laureo Reenazan-Grupo on 14-94-5913Dhnmdtrbq RBC Auto Ql (Bld)0.6 /100{WBC}High0-0.5FSt. Anthony's HospitalPlatelet mean volume [Entitic volume] in Blood by Automated countOrdered By: Nicoletto Bolzan-Grupo on 09-42-6829Bnpuknal mean volume (Bld) [Entitic vol]8.6 fLNormal 6.6-10.1FSt. Anthony's HospitalComment on above:Performed By: #### CBC, PT, BMP ####[place] [address] USAPlatelets [#/volume] in Blood by Automated countOrdered By: Grayson Willy-Grupo on 18-23-8474Nuxhjzcfw (Bld) [#/Vol]113 10*3/xZKqr513-516AqjjuhwhdMercy Health Lorain HospitalComment on above:Performed By: #### CBC, PT, BMP ####[facility] [place] [address] [place] Potassium [Moles/volume] in Serum or PlasmaOrdered By: Grayson GATe TechnologyaaronnVoxeo on 57-58-7368Ejtiatpia [Moles/Vol]4.0 mmol/LNormal3.5-5.1FSt. Anthony's HospitalComment on above:Performed By: #### CBC, PT, BMP ####[place] [address] [place] [address] USAProthrombin time (PT) Ordered By: LaurePetSitnStayaaronhhgregg on 51-51-4394ZS Coag (PPP) [Time]26.1 sHigh 9.0-12.9[facility]ain HospitalComment on above:A hematocrit value greater than 55% may lead to inaccurate results in coagulation testing. Patients having hematocrit values >55% require a special collection tube for coagulation studies. Please contact the laboratory at [phone] for redraw instructions. Result Comment: A hematocrit value greater than 55% may lead to inaccurate results in coagulation testing. Patients having hematocrit values >55% require a special collection tube for coagulation studies. Please contact the laboratory at [phone] for redraw instructions.Performed By: #### CBC, PT, BMP ####[address] [address] USASerum or plasma anion gap determinationOrdered By: LaurePetSitnStayzanVoxeo on 65-01-2783Oiabj gap [Moles/Vol]10.6 mmol/LNormal6.0-15.0[facility] HospitalComforest health medical center on above:Performed By: #### CBC, PT, BMP ####[place] [address] [place] [address] USASodium [Moles/volume] in Serum or Plasma Ordered By: Luis FApp47aaronhhgregg on 76-91-1592Zbkckp [Moles/Vol]137 mmol/L Evrjdy008-306LebczqogrMercy Health Lorain HospitalComment on above:Performed By: #### CBC, PT, BMP ####[place] [address] [place] [address] USAUrea nitrogen [Mass/volume] in Serum or PlasmaOrdered By: Grayson GonsalezGrupo on 12-79-4651Stye nitrogen [Mass/Vol]20 mg/dLNormal7-25[facility] HospitalComment on above:Performed By: #### CBC, PT, BMP ####[place] [address] [place] [address] USAAlanine aminotransferase [Enzymatic activity/volume] in Serum or PlasmaOrdered By: Caren Crooks on 99-49-0026ZYB [Catalytic activity/Vol]24 U/LNormal7-52[facility] HospitalComment on above:Performed By: #### CBC, PT, CMP ####[address] [address] USAAlbumin [Mass/volume] in Serum or Plasma by Bromocresol green (BCG) dye binding metho Ordered By: Caren Crooks on 29-42-6719Yfeczxz BCG dye [Mass/Vol]4.3 g/dL3.5-5.7 [facility] HospitalAlkaline phosphatase [Enzymatic activity/volume] in Serum or PlasmaOrdered By: Caren Crooks on 00-26-5416NCU [Catalytic activity/Vol]111 U/QMnzk93-339XmafvgpccMercy Health Lorain Hospital Comment on above:Performed By: #### CBC, PT, CMP ####[address] [address] USAAspartate aminotransferase [Enzymatic activity/volume] in Serum or PlasmaOrdered By: Caren Crooks on 02-74-8943SEL [Catalytic activity/Vol]42 U/FDtnb69-69ZkrcsuyocMercy Health Lorain HospitalComment on above:Performed By: #### CBC, PT, CMP ####[address] [address] USABasophils [#/volume] in Blood by Automated countOrdered By: Caren Crooks on 49-14-7031Nubweuqaf (Bld) [#/Vol]0.0 10*3/uL Normal0.0-0.2FSt. Anthony's HospitalComment on above:Result Comment: PERFORMED BY: [place] [address] PATHOLOGIST [employer] SUPERVISOR BHANU RIOS M.D.Performed By: #### CBC, PT, CMP ####[facility] [address] [place] [address] USABasophils/100 leukocytes in Blood by Automated countOrdered By: Caren Crooks on 77-46-4524Zprlueeco/100 WBC (Bld)0.8 %Normal.[facility] HospitalComment on above:Performed By: #### CBC, PT, CMP ####[place] [address] [place] [address] USABilirubin.total [Mass/volume] in Serum or Plasma Ordered By: Caren Crooks on 94-97-5841Damuchwxh [Mass/Vol]0.6 mg/dLNormal 0.3-1.0[facility] HospitalComment on above:Performed By: #### CBC, PT, CMP ####[facility] [address] [place] [address] USACT cervical spine wo conon 92-38-1247II cervical spine wo [facility] [place] [address] CT Scan Report Signed Patient: Fani Chua MR#: [id number] : 1935 Acct:[id number] Age/Sex: 89 / M ADM Date: 03/21/25 Loc: ER Room: Type: [facility] ER Attending Dr: Copies to: Caren Crooks Jr, MD Ordering Provider: Caren Crooks Jr, MD Date of Service: 03/21/25 CT/CT cervical spine wo con: fall, head inj CT CERVICAL SPINE WITHOUT CONTRAST: CLINICAL HISTORY: Fall COMPARISON: None TECHNIQUE: Spiral axial unenhanced images were obtained through the cervical spine. Sagittal, coronal reconstructions were also reviewed. This CT exam was performed using one or more following dose reduction techniques: Automated exposure control, adjustment of the mA and/or kV according to patient size, or use of iterative reconstruction technique. FINDINGS: Mild reversal of the normal cervical lordosis. Severe intervertebral space narrowing and C5-C7 and moderate severe interstitial disease and scarring C4-C5. Evidence of interbody ankylosis C2-C3 notably involving the posterior elements. No fracture or malalignment. Prevertebral soft tissues unremarkable. Biapical emphysematous changes. CT/CT cervical spine wo con IMPRESSION: NO CERVICAL SPINE FRACTURE Impression dictated by: Babar Ford M.D. 03/21/2025 9:57 PM Dictation Location: [place] [address] Transcribed By: [facility] 03/21/252156 Dictated By: Babar Ford MD 03/21/252154 Signed By: 03/21/25 [facility] HospitalB[facility] Physician GroupCT head/brain wo conon 69-34-5148YX head/brain wo [facility] Main [place] [address] [place] [address] CT Scan Report Signed Patient: Fani Chua MR#: [id number] : 1935 Acct:[id number] Age/Sex: 89 / M ADM Date: 03/21/25 Loc: ER Room: Type: [facility] ER Attending Dr: Copies to: Caren Crooks Jr, MD Ordering Provider: Caren Crooks Jr, MD Date of Service: 03/21/25 CT/CT head/brain wo con: fall, head inj, warfarin CT BRAIN WITHOUT CONTRAST: CLINICAL HISTORY: Fall COMPARISON: 02/26/2024 TECHNIQUE: Contiguous axial unenhanced images were obtained through the brain. This CT exam was performed using one or more following dose reduction techniques: Automated exposure control, adjustment of the mA and/or kV according to patient size, or use of iterative reconstruction technique. FINDINGS: There is no evidence of midline shift, intra or extra-axial fluid collection, hemorrhage or CT evidence of acute vascular effusion stroke. Central involutional changes. Iukp-ph-prjimyrd chronic small vessel ischemic disease. Visualized intraorbital contents appear unremarkable. Visualized paranasal sinuses are clear. Right forehead soft tissue swelling and subcutaneous hematoma noted. CT/CT head/brain wo con IMPRESSION: NO ACUTE INTRACRANIAL ABNORMALITY. RIGHT FOREHEAD SOFT TISSUE INJURY AND SUBCUTANEOUS HEMATOMA. Impression dictated by: Babar Ford M.D. 03/21/2025 9:54 PM Dictation Location: [place] [address] Transcribed By: [facility] 03/21/252153 Dictated By: Babar Ford MD 03/21/252151 Signed By: 03/21/252153[facility] GroupCalcium [Mass/volume] in Serum or PlasmaOrdered By: Caren Crooks on 77-75-9325Czvhmws [Mass/Vol]9.3 mg/dL Normal8.6-10.3FSt. Anthony's HospitalComment on above:Performed By: #### CBC, PT, CMP ####[place] [address] [place] [address] USACarbon dioxide, total [Moles/volume] in Serum or PlasmaOrdered By: Caren Crooks on 94-86-6454OY5 [Moles/Vol]25.0 mmol/KKncvpz35.0-31.0[facility] HospitalComment on above:Performed By: #### CBC, PT, CMP ####[address] [address] [place] Chloride [Moles/volume] in Serum or PlasmaOrdered By: Caren Crooks on 87-29-6982Vjsvbjvc [Moles/Vol]104 mmol/MErfipb53-438UxjdntorwMercy Health Lorain HospitalComment on above:Performed By: #### CBC, PT, CMP ####[address] [address] USAComplete Blood Count Auto Diff on 70-21-9571Cxfc Corpuscular HGB Conc32.9 g/vFJdhvmu02.5-35.6The [facility] Taylor HospitalComment on above:Result Comment: --- 03/21/252200 --- MCHC previously reported as: 32.5 g/dLPerformed By: #### CBC, PT, CMP ####[place] [address] [place] [address] USAMonocytes/100 WBC (Bld)18.70 %Normal0.00-20.00 The [facility] Physician GroupComment on above:Performed By: #### CBC, PT, CMP ####[place] [address] USANRBC% 0.1 /100{WBC}Normal0-0.5The [facility] Physician GroupComment on above:Performed By: #### CBC, PT, CMP ####[place] [address] USAWhite Blood Count5.1 [CFU]/mLNormal4.1-10.5The [facility] Physician GroupComment on above:Result Comment: --- 03/21/25 2200 --- WBC previously reported as: 5.0 X10E3/uLPerformed By: #### CBC, PT, CMP ####[place] [address] USAComprehensive Metabolic Panelon 58-97-2194Ndcvdqt [Mass/Vol]4.3 g/dLNormal3.5-5.7The [facility] Physician [facility] Comment on above:Performed By: #### CBC, PT, CMP ####[place] [address] USACreatinine Clr Calc Outktjei19.12 NormalMemorial Hospital Miramar Physician [facility] HealthComment on above:Result Comment: PERFORMED BY: [facility] [address] [place] [address] [id number] PATHOLOGIST [employer] SUPERVISOR BHANU RIOS M.D.Performed By: #### CBC, PT, CMP ####[place] [address] USAGFR/1.73 sq M.predicted MDRD (S/P/Bld) [Vol rate/Area]mL/min/{1.73_m2}NormalMemorial Hospital Miramar Physician [facility] Comment on above:Performed By: #### CBC, PT, CMP ####[place] [address] USACreatinine [Mass/volume] in Serum or PlasmaOrdered By: Caren Crooks on 59-81-7182Ehmdledoek [Mass/Vol]0.93 mg/dL Normal0.70-1.30[facility] HospitalComment on above:Performed By: #### CBC, PT, CMP ####[facility] [address] [place] [address] USAECG 12 lead ECGon 46-40-4230IFP 12 lead ECGDELAWARE COUNTY H[facility] Main [place] [address] [place] [address] Electrocardiograph Report Signed Patient: Fani Chua MR#: [id number] : 1935 Acct:[id number] Age/Sex: 89 / M ADM Date: 03/22/25 Loc: Room: 1S4824-7 Type: DIS INOo Attending Dr: Minna Patricai MD Ordering Provider: Caren Crooks Jr, MD Date of Service: 03/21/2501/06/2026 ECG/ECG 12 lead ECG: Fall Copies to: Test Reason : Blood Pressure : 163/82 mmHG Vent. Rate : 66 BPM Atrial Rate : 41 BPM P-R Int : * ms QRS Dur : 132 ms QT Int : 400 ms P-R-T Axes : * -72 63 degrees QTcB Int : 419 ms Atrial fibrillation with premature ventricular or aberrantly conducted complexes Left axis deviation Nonspecific intraventricular block Cannot rule out Septal infarct , age undetermined Abnormal ECG When compared with ECG of 15-Jun-2024 14:52, No significant change was found Confirmed by CAREN CROOKS MD ([id number]) on 03/23/2025 5:49:35 AM Referred By: Electronically Signed By: CAREN CROOKS MD Transcribed By: MUS Signed By Caren Crooks Jr, [place] 0549[facility] Physician GroupEosinophils [#/volume] in Blood by Automated countOrdered By: Caren Crooks on 64-74-4394Tpmvrxqclad (Bld) [#/Vol] 0.0 10*3/uLNormal0.0-0.45[facility] HospitalComment on above: Performed By: #### CBC, PT, CMP ####[facility] [address] [place] [address] USAEosinophils/100 leukocytes in Blood by Automated countOrdered By: Caren Crooks on 63-14-8093Pbllufzxrbz/100 WBC (Bld)0.5 %Normal .[facility] HospitalComment on above:Performed By: #### CBC, PT, CMP ####[place] [address] [place] [address] [facility] Erythrocyte distribution width [Ratio] by Automated countOrdered By: Caren Crooks on 60-51-5844Yhuuiffhnjy distribution width (RBC) [Ratio]17.8 %High 12.0-14.8Mer[facility] HospitalComment on above:--- 03/21/252200 ---RDW previously reported as: 17.7 H %Result Comment: --- 03/21/252200 --- RDW previously reported as: 17.7 H %Performed By: #### CBC, PT, CMP ####[place] [address] USAErythrocytes [#/volume] in Blood by Automated countOrdered By: Caren Crooks on 42-91-0048RUZ (Bld) [#/Vol]3.80 10*6/uLLow 3.90-5.60[facility] HospitalComment on above:--- 03/21/252200 ---RBC previously reported as: 3.86 L x10E6/uLResult Comment: --- 03/21/252200 --- RBC previously reported as: 3.86 L x10E6/uLPerformed By: #### CBC, PT, CMP ####[place] [address] [facility] HOSPITALGlomerular filtration rate [Volume Rate/Area] in Serum, Plasma or Blood by CreatinineOrdered By: Caren Crooks on 95-43-1944Wgikwefdhi filtration rate [Volume Rate/Area] in Serum, Plasma or Blood by Creatinine> 60.0 mL/MinMercy Health Lorain HospitalGlucose [Mass/volume] in Serum or PlasmaOrdered By: Caren Crooks on 70-06-2989Tnqzexz [Mass/Vol]127 mg/eWSlnj20-961ZgpevbsxvMercy Health Lorain HospitalComment on above: ADA recommended reference rangeRandom Glucose Reference Range is dependent on time and content of last meal. Glucose of more than 200 mg/dL in a nonstressed, ambulatory subject supports the diagnosisof Diabetes Mellitus.Result Comment: Random Glucose Reference Range is dependent on time and content of last meal. Glucose of more than 200 mg/dL in a nonstressed, ambulatory subject supports the diagnosis of Diabetes Mellitus. ADA recommended reference rangePerformed By: #### CBC, PT, CMP ####[facility] [place] [address] USAHematocrit [Volume Fraction] of Blood by Automated countOrdered By: Caren Crooks on 03-21-2025 Hematocrit (Bld) [Volume fraction]32.8 %Low38.8-50.0Mer[facility] Lorain HospitalComment on above:--- 03/21/252200 ---HCT previously reported as: 33.4 L % Result Comment: --- 03/21/252200 --- HCT previously reported as: 33.4 L %Performed By: #### CBC, PT, CMP ####[place] [address] USAHemoglobin [Mass/volume] in BloodOrdered By: Caren Crooks on 46-05-4070Zmfiiuejsw (Bld) [Mass/Vol]10.8 g/dLLow13.0-17.0 [facility] HospitalComment on above:--- 03/21/252200 ---HGB previously reported as: 10.9 L g/dLResult Comment: --- 03/21/252200 --- HGB previously reported as: 10.9 L g/dLPerformed By: #### CBC, PT, CMP ####[place] [address] USAINR in Platelet poor plasma by Coagulation assayOrdered By: Caren Crooks on 66-06-6159EGU Coag (PPP) [Relative time]2.2 {INR}NormalMercy Health Lorain HospitalComment on above:INR Therapeutic Range A) Pre- and Peroperative OAT started two weeks before surgery. NOT HIP SURGERY: 1.5 - 2.5 HIP SURGERY: 2 - 3B) Primary and secondary prevention of venous THROMBOSIS: 2 - 3C) Active venous thrombosis, pulmonary embolismand prevention of recurrent venous thrombosis: 2 - 3D) Prevention of arterial thromboembolismincluding patients with mechanical heart valves: 3 - 4.5Result Comment: INR Therapeutic Range A) Pre- and [...] heart valves: 3 - 4.5 PERFORMED BY: [facility] [address] [place] [address] PATHOLOGIST [employer] SUPERVISOR BHANU RIOS M.D.Performed By: #### CBC, PT, CMP ####[facility] [address] [place] [address] USALeukocytes [#/volume] corrected for nucleated erythrocytes in Blood by Automated counOrdered By: Caren Crooks on 15-37-0884RRD corrected for nucl RBC Auto (Bld) [#/Vol]5.1 10*3/uL4.1-10.St. Anthony's HospitalComment on above:--- 03/21/252199 ---WBC previously reported as: 5.0 X10E3/uLLeukocytes [#/volume] in Blood by Automated countOrdered By: Caren Crooks on 56-75-2996IFK (Bld) [#/Vol]5.1 10*3/uLNormal4.1-10.St. Anthony's HospitalComment on above:--- 03/21/252200 ---UNWBC previously reported as: 5.0 x10E3/uLResult Comment: --- 03/21/252200 --- UNWBC previously reported as: 5.0 x10E3/uLPerformed By: #### CBC, PT, CMP ####[facility] [address] [place] [address] USALymphocytes [#/volume] in Blood by Automated countOrdered By: Caren Crooks on 72-99-7445Fahtchqxsnb (Bld) [#/Vol] 0.8 10*3/uLLow1.00-4.8Mer[facility] HospitalComment on above: Performed By: #### CBC, PT, CMP ####[facility] [place] [address] USALymphocytes/100 leukocytes in Blood by Automated countOrdered By: Caren Crooks on 94-33-6912Oxudhzlvbet/100 WBC (Bld)15.0 % Normal.[facility] HospitalComment on above:Performed By: #### CBC, PT, CMP ####[place] [address] USAMCH [Entitic mass] by Automated countOrdered By: Caren Crooks on 03-21-2025 MCH (RBC) [Entitic mass]28.4 apDqcsbb21.5-35.2FSt. Anthony's Hospital Comment on above:--- 03/21/252200 ---MCH previously reported as: 28.1 pgResult Comment: --- 03/21/252200 --- MCH previously reported as: 28.1 pgPerformed By: #### CBC, PT, CMP ####[place] [address] USAMCHC Auto (RBC) [Mass/Vol]Ordered By: Caren Crooks on 51-36-6597AZGN (RBC) [Mass/Vol]32.9 g/dL32.5-35.6FSt. Anthony's HospitalComment on above:--- 03/21/252200 ---MCHC previously reported as: 32.5 g/dLMCV [Entitic volume] by Automated countOrdered By: Caren Crooks on 49-57-5851FZW (RBC) [Entitic vol]86.3 mSRyyold86.5-101Mer[facility] HospitalComment on above:--- 03/21/252200 ---MCV previously reported as: 86.5 fl Result Comment: --- 03/21/252200 --- MCV previously reported as: 86.5 flPerformed By: #### CBC, PT, CMP ####[place] [address] USAMonocyte distribution width [Entitic volume] in Blood by AutomatedOrdered By: Caren Crooks on 54-18-6526Yrorwbex distribution width Auto (Bld) [Entitic vol]18.70 %0.00-20.00[facility] HospitalMonocytes [#/volume] in Blood by Automated countOrdered By: Caren Crooks on 77-22-8989Obcjpgjuc (Bld) [#/Vol]0.9 10*3/uLHigh0.0-0.8[facility] HospitalComment on above:Performed By: #### CBC, PT, CMP ####[place] [address] [place] Monocytes/100 leukocytes in Blood by Automated countOrdered By: Caren Crooks on 58-35-6613Ighnwoddm/100 WBC (Bld)17.8 %Normal.[facility] Comment on above:Performed By: #### CBC, PT, CMP ####[place] [address] USANeutrophils [#/volume] in Blood by Automated countOrdered By: Caren Crooks on 56-27-7115Rukcnsfawke (Bld) [#/Vol] 3.4 10*3/uLNormal1.8-7.7FSt. Anthony's HospitalComment on above: Performed By: #### CBC, PT, CMP ####[place] [address] USANeutrophils/100 leukocytes in Blood by Automated countOrdered By: Caren Crooks on 16-76-3523Cmeobzomtsf/100 WBC (Bld)65.9 % Normal.[facility] HospitalComment on above:Performed By: #### CBC, PT, CMP ####[place] [address] USANo Panel InformationOrdered By: Caren Crooks on 47-95-9323Lezymvlx Creatinine Clearance (Chem53.12Mer[facility]ain HospitalNucleated erythrocytes [Presence] in Blood by Automated countOrdered By: Caren Crooks on 61-54-5138Sdkprrotj RBC Auto Ql (Bld)0.1 /100{WBC}0-0.5FSt. Anthony's HospitalPlatelet mean volume [Entitic volume] in Blood by Automated count Ordered By: Caren Crooks on 19-95-8064Gzjpgajg mean volume (Bld) [Entitic vol] 8.4 fLNormal6.6-10.1FSt. Anthony's HospitalComment on above:Performed By: #### CBC, PT, CMP ####[address] [address] USAPlatelets [#/volume] in Blood by Automated count Ordered By: Caren Crooks on 19-69-3901Zwelxagxp (Bld) [#/Vol]131 10*3/uLLow 150-450Mer[facility] HospitalComment on above:--- 03/21/252200 ---Plt previously reported as: 127 L x10E3/uLResult Comment: --- 03/21/252200 --- Plt previously reported as: 127 L x10E3/uLPerformed By: #### CBC, PT, CMP ####[address] [address] USAPotassium [Moles/volume] in Serum or PlasmaOrdered By: Caren Crooks on 62-11-6756Kgzcubegl [Moles/Vol]4.1 mmol/L Normal3.5-5.1FSt. Anthony's HospitalComment on above:Performed By: #### CBC, PT, CMP ####[address] [address] USAProtein [Mass/volume] in Serum or PlasmaOrdered By: Caren Crooks on 55-86-7806Jnbphqq [Mass/Vol]7.2 g/dLNormal6.4-8.9[facility] HospitalComment on above:Performed By: #### CBC, PT, CMP ####[address] [address] USAProthrombin time (PT)Ordered By: Caren Crooks on 75-47-8602RD Coag (PPP) [Time]24.2 sHigh9.0-12.9Mer[facility] HospitalComment on above:A hematocrit value greater than 55% may lead to inaccurate results in coagulation testing. Patientshaving hematocrit values >55% require a special collection tube for coagulation studies. Please c ontact the laboratory at [phone] for redraw instructions.Result Comment: A hematocrit value greater than 55% may lead to inaccurate results in coagulation testing. Patients having hematocrit values >55% require a special collection tube for coagulation studies. Please contact the laboratory at [phone] for redraw instructions.Performed By: #### CBC, PT, CMP ####[place] [address] [place] [id number] USASerum globulin measurement by calculation (mass/volume)Ordered By: Caren Crooks on 24-47-4536Zdfwlgpr (S) [Mass/Vol]2.9 g/dLNormLakeHealth TriPoint Medical CenterComment on above: Performed By: #### CBC, PT, CMP ####[place] [address] USASerum or plasma albumin/globulin mass ratioOrdered By: Caren Crooks on 34-24-0450Qruotgb/Globulin [Mass ratio]1.5 {ratio}Normal [facility] HospitalComment on above:Performed By: #### CBC, PT, CMP ####[place] [address] [facility] Serum or plasma anion gap determinationOrdered By: Caren Crooks on 03-21-2025 Anion gap [Moles/Vol]12.1 mmol/LNormal6.0-15.0[facility] Comment on above:Performed By: #### CBC, PT, CMP ####[place] [address] USASodium [Moles/volume] in Serum or PlasmaOrdered By: Craen Crooks on 08-24-4105Kvulqu [Moles/Vol]137 mmol/LNormal 136-145Mer[facility] Lor[facility] HospitalComment on above:Performed By: #### CBC, PT, CMP ####[place] [address] USAUrea nitrogen [Mass/volume] in Serum or PlasmaOrdered By: Caren Crooks on 89-95-5047Bevk nitrogen [Mass/Vol]21 mg/dLNormal7-25Mer[facility] HospitalComment on above:Performed By: #### CBC, PT, CMP ####[place] [address] USAX-ray reportOrdered By: Babar Ford on 73-38-5978Tjkvy reportDELAWARE COUNTY HOSPITAL Main [address] [address] XRay Report Signed Patient: Fani Chua MR#: [id number] : 1935 Acct:[id number] Age/Sex: 89 / M ADM Date: 5 Loc: ER Room: Type: PRE ER Attending Dr: Copies to: Caren Crooks Jr, MD~ Ordering Provider: Caren Crooks Jr, MD Date of Service: 03/21/25 XR/XR chest 1V portable: Fall SINGLE VIEW CHEST CLINICAL HISTORY: Fell COMPARISON: 02/26/2024 FINDINGS: Enlarged cardiomediastinal silhouette silhouette. Minor perihilar congestion. Lungs clear. No effusion or pneumothorax. XR/XR chest 1V portable IMPRESSION: CARDIAC MEGALY. NEGATIVE ACUTE PLEURAL-PARENCHYMAL DISEASE. Impression dictated by: Babar Ford M.D. 03/21/2025 9:12 PM Dictation Location: [facility]- Transcribed By: [facility] 03/21/252111 Dictated By: Babar Ford MD 03/21/252111 Signed By: 03/21/25 [facility] Work Phone: xr chest 1V portableon 06-93-2496QK chest 1V portable [facility] Main [address] [address] XRay Report Signed Patient: Fani Chua MR#: [id number] : 1935 Acct:[id number] Age/Sex: 89 / M ADM Date: 03/21/25 Loc: ER Room: Type: PRE ER Attending Dr: Copies to: Caren Crooks Jr, MD Ordering Provider: Caren Crooks Jr, MD Date of Service: 03/21/25 XR/XR chest 1V portable: Fall SINGLE VIEW CHEST CLINICAL HISTORY: Fell COMPARISON: 02/26/2024 FINDINGS: Enlarged cardiomediastinal silhouette silhouette. Minor perihilar congestion. Lungs clear. No effusion or pneumothorax. XR/XR chest 1V portable IMPRESSION: CARDIAC MEGALY. NEGATIVE ACUTE PLEURAL-PARENCHYMAL DISEASE. Impression dictated by: Babar Ford M.D. 03/21/2025 9:12 PM Dictation Location: [place] [address] Transcribed By: HENRRY 03/21/252111 Dictated By: Babar Ford MD 03/21/252111 Signed By: 03/21/252111[facility] Physician GroupALL CBC WITH AUTO DIFFon 18-49-0578PZVGYJPXP ABSOLUTE PGUL1LWVL HealthcareBasophils/100 WBC (Bld)0.4 %0.2 - 2.0 %NOMS HealthcareEosinophils/100 WBC (Bld)0.4 %Low0.9 - 7.0 %NOM HealthcareErythrocyte distribution width (RBC) [Ratio]16.2 %High11.0 - 15.0 % NOM HealthcareHematocrit (Bld) [Volume fraction]34.3 %Low42.0 - 54.0 %[facility] HealthcareHemoglobin (Bld) [Mass/Vol]11 g/dLLow14.0 - 18.0 g/dLMercy Hospital South, formerly [facility] IMMATURE GRANULOCYTES ABS AUTO0.03NOMS [facility] Health SystemImmature granulocytes/100 WBC (Bld)0.7 %High0.0 - 0.5 %[facility] HealthcareInterpretation and review of laboratory resultsAbnormalNOKS HealthcareLYMPHOCYTES ABSOLUTE AUTO1.2NOM[facility] Healthcare Lymphocytes/100 WBC (Bld)27.1 %20.5 - 60.0 %[facility] (RBC) [Entitic mass]28.4 pg25.9 - 34.0 pgNOOzarks Medical CenterHC (RBC) [Mass/Vol]32.1 g/dL29.9 - 35.2 g/dLSaint Luke's North Hospital–SmithvilleV (RBC) [Entitic vol]88.6 fL80.0 - 94.0 fLNOSaint Joseph Health CenterMONOCYTES ABSOLUTE AUTO0.7NOMS HealthcareMonocytes/100 WBC (Bld)14.2 % High1.7 - 12.0 %NOM HealthcareNEUTROPHILS ABSOLUTE AUTO2.6NOM[facility] Healthcare Neutrophils/100 WBC (Bld)57.2 %43.0 - 75.0 %NOMS HealthcarePlatelet mean volume (Bld) [Entitic vol]10.6 fL9.5 - 13.5 fLNOKS HealthcareTBH EO #0NOKS Healthcare TBH XRT79VvlSJAU HealthcareTBH RBC3.87LowNOMS HealthcareTBH WBC4.6NOMS HealthcareNo Panel Informationon 95-66-8675KACXVRTVLWTJA HealthcareRETICULOCYTE PCT AUTOon 11-24-7085ERREHVZVJIMM PCT AUTO2.2 %0.60 - 3.10 %NOMS HealthcareWound Care Noteon 06-01-3442Guxpd Care Note [id number]#1.00[facility] Coding Summaryon 56-56-3425Innqkr SummaryHTMLBase 64 NwuzakplCBs2pVw+PGhlYWQ+OF0YWGMbV74baPCpsV5yM1YGAKtNWisiUTLYLOlUEvTzurKiEF5qxTOu ZXJu [file] cHN (more content not included)...[facility] HospitalCoding Summaryon 36-72-0221Jotdlq SummaryHTMLBase 64 TebwzjmcNMr3qSa+PGhlYWQ+UU6EULYbQ72mxAKteB4aP0VTLUcNOumzKFKTUJlTMnImdlNdSO2wjJZs ZXJu [file] cHN (more content not included)...NormalReg[facility] HospitalCoding SummaryHTMLBase 64 YmxfjsguYGb0lIh+PGhlYWQ+CX1UHCJyL84yhWZbyE0dY7ATWOiANfscFLCSDZaJFwJvuqKnGS6ymMJd ZXJu [file] cHN (more content not included)...[facility] HospitalWound Care Noteon 12-16-1174Edchq Care [id number]#1.00OTUniversity Hospitals Elyria Medical CenterWound Care Noteon 86-76-1030Dwgsr Care Note [id number]#1.00[facility] Coding Summaryon 19-96-4118Ughjfq SummaryMLBase 64 FuwikgcbXLl7aIv+PGhlYWQ+WZ4TTKRzA93hxBKoiG4gZ8KRBLnCVganONNTLGzGNrOhceRbRO3xwNKd ZXJu [file] cHN (more content not included)...[facility] HospitalWound Care Noteon 30-49-8616Zhius Care [id number]#1.00OTGTIFF [facility] HospitalCoding Summaryon 23-10-5487Sldcfg SummaryHTMLBase 64 VghtgsscBSw4wLl+PGhlYWQ+QZ5CUQZtH28jaEGujF5rG4KAXLqHFxvxDOFSWHoMNtMyktRjPA4yyPVn ZXJu [file] cHN (more content not included)...[facility] HospitalWound Care Noteon 54-17-5514Wures Care [id number]#1.00OTGTIFF [facility] HospitalCoding Summaryon 65-61-7082Lfakwk SummaryHTMLBase 64 OwqiyplsHLq8fMj+PGhlYWQ+FJ4QIYKyJ93cjXDktU0aB2GAVKyFSydfHLMSHLmGIaIysbVpBY1qqMVa ZXJu [file] cHN (more content not included)...[facility] HospitalWound Care Noteon 67-76-0261Envti Care [id number]#1.00OTUniversity Hospitals Elyria Medical CenterWound Care Noteon 56-67-5996Wdeso Care Note [id number]#1.00[facility] Coding Summaryon 29-95-3055Gcbrvj SummaryMLBase 64 TuloqrrfFVe9iKs+PGhlYWQ+HT3OGIOaK89cnJUaxJ1qM3WUFPkWZgzaKLAMQWmVFnTxbtLlZR8zxAEt ZXJu [file] cHN (more content not included)...[facility] BASIC METABOLIC PANELon 66-80-8380Pcmfx gap [Moles/Vol]15 mmol/LNOMS HealthcareCalcium [Mass/Vol]8.9 mg/dL8.5 - 10.1 mg/dLNOKS HealthcareChloride [Moles/Vol]103 mmol/L 98 - 107 mmol/LNOMS HealthcareCO2 [Moles/Vol]25.9 mmol/L21.0 - 32.0 mmol/LNOMS HealthcareCreatinine [Mass/Vol]0.81 mg/dL0.70 - 1.30 mg/dLNOKS Healthcare GFR/1.73 sq M.predicted CKD-EPI (S/P/Bld) [Vol rate/Area]>60>=60 mL/min/1.73m 2 NOMS HealthcareGlucose [Mass/Vol]99 mg/dL74 - 106 mg/dLNOKS HealthcarePotassium [Moles/Vol]3.9 mmol/L3.5 - 5.1 mmol/LNOMS HealthcareSodium [Moles/Vol]140 mmol/L 136 - 145 mmol/LNOMS HealthcareTBH EGFR-NON AF MICRONESIAN>60>=60 mL/min/1.73m 2 NOMS HealthcareUrea nitrogen [Mass/Vol]22 mg/dLHigh7.0 - 18.0 mg/dLNOKS HealthcareUrea nitrogen/Creatinine [Mass ratio]27.2 mg/mgNOSaint Joseph Health CenterALL MAGNESIUMon 82-63-9021Abjoyifny [Mass/Vol]1.4 mg/dLLow1.8 - 2.4 mg/dLNOMS HealthcareNo Panel Informationon 46-31-7191Gjrikfclupcbjr and review of laboratory resultsAbnormalNOMS HealthcareCLINISYNCNOMS HealthcareWound Care Note on 26-74-4004Huiob Care [id number]#1.00OTGTNorthwestern Medical Center HospitalCoding Summaryon 59-62-4823Mevydp SummaryHTMLBase 64 OgdihojsMAf1vSo+PGhlYWQ+GL0CALRiS21yhYAkhM3gL5NIQVgRNiwmFZSFZBjROzFufzUcGI5xrDHs ZXJu [file] cHN (more content not included)...[facility] HospitalCoding SummaryHTMLBase 64 EdozvkiiDCa0uQt+PGhlYWQ+DG2QJOPyA15sfOClgL6cL0AXTFqSCmriWKQYXGtJKvYyvlPwER5zlYNz ZXJu [file] cHN (more content not included)...[facility] HospitalWound Care Noteon 58-07-0589Qnelq Care [id number]#1.00OTGTMercy Health West HospitalWound Care Noteon 30-58-8983Uqbex Care Note [id number]#1.00OTMer[facility] Coding Summaryon 38-29-8544Fuxhgq SummaryHTMLBase 64 CyqkzzydANi2yTj+PGhlYWQ+WW6GZXNdY61ymTUqtU0dS3MEEPqTUnesSMHAIKuIJpIjxpYvVF7zuHXz ZXJu [file] cHN (more content not included)...NormalReg[facility] HospitalCoding SummaryHTMLBase 64 CffzoxzdMLw7pEr+PGhlYWQ+MB5ZHGYfT19stCLekK3uJ5CDWDsGJmnxYFFTKKcBLgHisfRzIJ6wrKZx ZXJu [file] cHN (more content not included)...[facility] HospitalWound Care Noteon 57-20-8049Ucfsg Care [id number]#1.00OTGTIFF [facility] HospitalCoding Summaryon 09-58-7543Xrfnyh SummaryHTMLBase 64 PreslpzzQFm0oAj+PGhlYWQ+WW5RSLSuH56hcYXfsT1wI3IYNLhCIcdaKXVNFAhRHuZxooVyFD2rkVWo ZXJu [file] cHN (more content not included)...[facility] HospitalWound Care Noteon 19-87-7424Ypwcp Care [id number]#1.00OTGTIFF [facility].Interpretation:on 71-39-3541NLJ Ab IA QlCommentInvalid Interpretation [facility]. [facility] HospitalComment on above:Result Comment: Not infected with HCV unless early or acute infection is suspected (which may be delayed in an immunocompromised individual), or other evidence exists to indicate HCV infection. Performed at: [facility] [address] [id number] PhD Robin Davisformed By: #### [id number] #### [facility] [address] [place], [place] [address]Sbks panel: Leuk/Lym 461929or 65-68-8068Syanuvzb and Gating StrategyCommentInvalid Interpretation St. Charles HospitalComment on above:Result Comment: 8 color analysis with CD45/SSC gating Technical-Analysis performed at [place] [address], [facility], [facility] Marvin Little, [facility] [address], Director: Chapo Abrams, [facility], Performed By: #### [id number] #### [facility] [address] [place], [place] [address]Fnpgdlmaoq comment [Interpretation] NarrativeCommentInvalid Interpretation St. [facility] HospitalComment on above:Result Comment: 1. [place] and lambda staining cannot be interpreted due [...] Recommend clinical correlation and follow up as appropriate.Performed By: #### [id number] #### [facility] [address] [place], [place] [address]Sjurypzsqv of LeukocytesCommentInvalid Interpretation Code [facility] HospitalComment on above:Result Comment: [place] and lambda staining cannot be interpreted due to nonspecific light chain binding. There is no loss of, or aberrant expression of, the riley T cell antigens to suggest a neoplastic T cell process. A decreased CD4/T helper to CD8/T suppressor cell ratio is detected.CD4:CD8 ratio 0.4 No circulating blasts are detected. Rare granulocytes show left-shifted maturation. 16% monocytes are detected.Performed By: #### [id number] #### [facility] [address] [place], [place] [address]Srkroygq informationCommentInvalid Interpretation [facility] HospitalComment on above:Result Comment: Accompanying CBC dated 10/20/2024 shows: WBC count 6.1, Kadi 3.8, Lym 1.3, Mon 0.9.Performed By: #### [id number] #### [facility] [address] [place], [place] [address]Jnhergqmolbfhydrn studyCommentInvalid Interpretation St. [facility] HospitalComment on above:Result Comment: CD2 Normal CD3 Normal CD4 Normal CD5 Normal CD7 Normal CD8 Normal CD10 Normal CD11b Normal CD13 Normal CD14 Normal CD16 Normal CD19 Normal CD20 Normal CD33 Normal CD34 Normal CD38 Normal CD45 Normal CD56 Normal CD57 Normal CD117 Normal HLA-DR Normal KAPPA See Text LAMBDA See Text CD64 NormalPerformed By: #### [id number] #### [facility] [address] [place], [place] [address]Hjuzjqlyqv comment Bunny (Report)CommentInvalid Interpretation St[facility] HospitalComment on above:Result Comment: Each antibody in this assay was utilized to assess for potential abnormalities of studied cell populations or to characterize identified abnormalities. This test was developed and its performance characteristics determined by [facility]. It has not been cleared or approved by the U.S. Food and Drug Administration. The FDA has determined that such clearance or approval is not necessary. This test is used for clinical purposes. It should not be regarded as investigational or for research. Performed at: -Y [facility] [address] [facility], [place] [id number] [facility] Jose Alberto Cowan Performed at: TG [facility] [address] [facility], [place] [phone] [facility] Jose Alberto ApontenPerformed By: #### [id number] #### [facility] [address] [place], [place] [address]Deyvyqnpfli interpretation (Unsp spec) [Interp]CommentInvalid Interpretation St. [facility] HospitalComment on above:Result Comment: 1. B-cell clonality cannot be evaluated, see comment. 2. Relative monocytosis, 16% of leukocytes, see comment.Performed By: #### [id number] #### [facility] [address] [place], [place] [address]Qpdnerqpclp nameCommentInvalid Interpretation St[facility] HospitalComment on above:Result Comment: Дмитрий Ashford M.D. Ph.DPerformed By: #### [id number] #### [facility] [address] [place], [place] [address]Cohgobsh source Nom (Unsp spec)CommentInvalid Interpretation St[facility] HospitalComment on above:Result Comment: Peripheral blood Performed By: #### [id number] #### [facility] [address] [place], [place] [address]Rzwmqn cells/100 cells (Unsp spec)CommentInvalid Interpretation St. [facility] HospitalComment on above:Result Comment: 69% Cell viability in this sample is sufficient for analysis but is less than optimal.Performed By: #### [id number] #### [facility] [address] [place], [place] [address]Zzjlnp Lvlon 42-49-2012Tnqzau [Mass/Vol]141 microgram/dLHigh 69-132Bu[facility]rus Community HospitalComment on above:Result Comment: This test was developed and its performance characteristics determined by [facility]. It has not been cleared or approved by the Food and Drug Administration. Detection Limit = 5 Performed at: [facility] [address] [place], [place] [id number] MD Nleson Carmenformed By: #### [id number] #### [facility] [address] [place], [place] [address]Xpjo Interp 16 or moreon 93-02-3845Uxhf Interp 16 or [address] PerformedInvalid Interpretation [address] Charles HospitalComment on above: Result Comment: Performed at: -Y [facility] [address] [facility] [phone] [facility] Chenn AnjenPerformed By: #### [id number] #### [facility] [address] [place], [place] [address]Iazh Marker, [employer] 88-53-8654Dhaw Marker, FirstPerformed Invalid Interpretation [facility] HospitalComment on above:Result Comment: Performed at: -Y [facility] [address] [place], [place] [id number] [facility] Chenn AnjenPerformed By: #### [id number] #### [facility] [address] [place], [place] [address]Ccml Markers X 34-44-5693Uhlo Markers X 15PerformedInvalid Interpretation [facility] HospitalComment on above:Result Comment: Performed at: -Y [facility] [address] [place] [id number] [facility] Jose Alberto AponteChicaerformed By: #### [id number] #### [facility] [address] [place], [place] [address]Lzyo Markers X 3on 47-33-6275Wkyb Markers X 3PerformedInvalid Interpretation [facility] HospitalComment on above:Result Comment: Performed at: -Y [facility] [address] [facility] [place], [place] [id number] [id number] [facility] Jose Alberto JacobsAnnettaerformed By: #### [id number] #### [facility] [address] [place], [place] [address]Mbsa Markers X 543-77-7480Ahia Markers X 5PerformedInvalid Interpretation [facility] HospitalComment on above:Result Comment: Performed at: -Y [facility] [address] [place], [place] [id number] [facility] Jose Alberto ApontenPerformed By: #### [id number] #### [facility] [address] [place], [place] [address]EWT Antibody RFX to Quant PCRon 70-87-1923VFR Ab IA Ql Non-ReactiveInvalid Interpretation CodeNon ReactiveBucyrus Community Hospital Comment on above:Result Comment: Performed at: [facility] [place] [address] [place], [place] [id number] PhD Robin Davisformed By: #### [id number] #### [facility] [address] [place], [place] [address]WVG Screen 4th Generation wRfxon 79-17-2817LRM 1+2 Ab+HIV1 p24 Ag IA QlNon-ReactiveInvalid Interpretation CodeNon ReactiveBucyrus Community HospitalComment on above:Result Comment: HIV-1/HIV-2 antibodies and HIV-1 p24 antigen were NOT detected. There is no laboratory evidence of HIV infection. HIV Negative Performed at: [address] [id number] [id number] [facility] Robin ShaverThe Bellevue Hospitalformed By: #### [id number] #### [facility] [address] [place], [place] [address]Tnt A IgMon 77-94-6403ITA IgM IA QlNegativeInvalid Interpretation CodeNegativeBucyrus Community HospitalComment on above:Result Comment: A negative anti-HAV IgM result suggests no recent or current HAV infection. Performed at: [address] [id number] [facility] Centerselena [facility] Hospital Satelliteformed By: #### [id number] #### [facility] [address] [place] [address]Wlc B Core Ab, IgMon 51-21-7450HXC core IgM IA QlNegative Invalid Interpretation CodeNegativeBucyrus Community HospitalComment on above: Result Comment: Performed at: [address] [id number] [id number] [facility] Anujmoselena ShaverThe Bellevue Hospitalformed By: #### [id number] #### [facility] [address] [place], [place] [address]Zya Bs Abon 00-06-1903FPD surface Ab Ql (S)Non-ReactiveInvalid Interpretation CodeBucyrus Community HospitalComment on above:Result Comment: Non Reactive: Not immune to HBV infection. Equivocal: Unable to determine if anti-HBs is present at levels consistent with immunity. Reactive: Anti-HBs concentration detected at greater than 10 mIU/mL. Individual is considered to be immune to infection with HBV. Performed at: [address] [id number] [phone] [facility] Robin WayneHonorhealth Scottsdale Thompson Peak Medical Centerformed By: #### [id number] #### [facility] [address] [place], [place] [address]Bwm Bs Agon 73-13-3746WVP surface Ag IA QlNegativeInvalid Interpretation CodeNegativeBucyrus Community HospitalComment on above:Result Comment: Performed at: [facility] [id number] PhD Robin Davisformed By: #### [id number] #### [facility] [address] [place] [address]CJE w/ Auto Diffon 04-65-5925Ladesivun/100 WBC (Bld)0.7 %Normal 0.0-2.0[facility] Community HospitalComment on above:Performed By: #### [id number] #### [facility] [address] [place] [address]Rncjdmveo/Leukocytes Auto (Bld) [Pure # fraction]0.0 E9/LNormal 0.0-0.2FUniversity Hospitals TriPoint Medical CenterComment on above:Performed By: #### [id number] #### [facility] [address] [place] [address]Gcxsnvlpqbq (Bld) [#/Vol]0.1 E9/LNormal0.0-0.5FUniversity Hospitals TriPoint Medical CenterComment on above:Performed By: #### [id number] #### [facility] [address] [place] [address]Ecgwhbmudth/100 WBC (Bld)1.0 %Normal0.0-8.0[facility] Community HospitalComment on above:Performed By: #### [id number] #### [facility] [address] [place] [address]Wsryomtslmf distribution width (RBC) [Ratio]15.2 %High10.9-14.2 [facility] HospitalComment on above:Performed By: #### [id number] #### [facility] [address] [place] [address]Otvjjhcrfq (Bld) [Volume fraction]35.3 %Low37.7-49.0[facility] Community HospitalComment on above:Performed By: #### [id number] #### [facility] [address] [place] [address]Zrgqedgrmi (Bld) [Mass/Vol]11.7 g/dLLow13.5-17.5FUniversity Hospitals TriPoint Medical CenterComment on above:Performed By: #### [id number] #### [facility] [address] [place] [address]Wimstnzitfg (Bld) [#/Vol]1.3 E9/LNormal1.0-4.0[facility] HospitalComment on above:Performed By: #### [id number] #### [facility] [address] [place] [address]Xdqvwvezmzb/100 WBC (Bld)21.7 %Lfzyfi93.0-50.0[facility] HospitalComment on above:Performed By: #### [id number] #### [facility] [address] [place] [address]ETI (RBC) [Entitic mass]28.7 loTprdmi18.0-34.0[facility] HospitalComment on above:Performed By: #### [id number] #### [facility] [address] [place] [address]GIOU (RBC) [Mass/Vol]33.1 g/aYNostft11.4-36.0[facility] HospitalComment on above:Performed By: #### [id number] #### [facility] [address] [place] [address]ZEV (RBC) [Entitic vol]86.8 qCJcmdaj31.0-100.0[facility] HospitalComment on above:Performed By: #### [id number] #### [facility] [address] [place] [address]Phcbsxulx (Bld) [#/Vol]0.9 E9/LNormal0.2-1.0[facility] HospitalComment on above:Performed By: #### [id number] #### [facility] [address] [place] [address]Dxuiltrjazv (Bld) [#/Vol]3.8 E9/LNormal2.0-7.5FUniversity Hospitals TriPoint Medical CenterComment on above:Performed By: #### [id number] #### [facility] [address] [place] [address]Wifhmphhpit/100 WBC (Bld)61.9 %Zbrotz80.0-75.0[facility] HospitalComment on above:Performed By: #### [id number] #### [facility] [address] [place] [address]S[address] mean volume (Bld) [Entitic vol]8.7 fLNormal6.4-10.8 [facility] HospitalComment on above:Performed By: #### [id number] #### [facility] [address] [place] [address]Ozykbjuwq (Bld) [#/Vol]127.0 E9/XPqc009.0-500.0[facility] Community HospitalComment on above:Performed By: #### [id number] #### [facility] [address] [place] [address]LAY (Bld) [#/Vol]4.1 E12/LLow4.3-5.9[facility] Comment on above:Performed By: #### [id number] #### [facility] [address] [place] [address]AAD corrected for nucl RBC Auto (Bld) [#/Vol]6.1 E9/LNormal 4.0-11.0[facility] Community HospitalComment on above:Result Comment: Peripheral smear review performed.Performed By: #### [id number] #### [facility] [address] [place] [address]LKFbc 75-38-5979Qkyiwjp/Globulin (S) [Mass conc ratio]1.3Normal 1.1-2.2FUniversity Hospitals TriPoint Medical CenterComment on above:Performed By: #### [id number] #### [facility] [address] [place] [address]Ggcptkgh (S) [Mass/Vol]3.1 g/dLNormal1.4-4.0[facility] HospitalComment on above:Performed By: #### [id number] #### [facility] [address] [place], [place] [address]Rukyufk [Mass/Vol]7.2 g/dLNormal6.0-7.8[facility] HospitalComment on above:Performed By: #### [id number] #### [facility] [address] [place], [place] [address]Bnclzgk [Mass/Vol]4.1 g/dLNormal3.3-5.0[facility] HospitalComment on above:Performed By: #### [id number] #### [facility] [address] [place] [address]JIE [Catalytic activity/Vol]101 Int._Unit/YEbqr86-40LxdrfnBucyrus Community HospitalComment on above:Performed By: #### [id number] #### [facility] [address] [place], [place] [address]AWK No additional P-5'-P [Catalytic activity/Vol]18 Int._Unit/L Normal6-46Bu[facility] Community HospitalComment on above:Performed By: #### [id number] #### [facility] [address] [place], [place] [address]Slpgw gap [Moles/Vol]13 mmol/LNormal6-16[facility] HospitalComment on above:Performed By: #### [id number] #### [facility] [address] [place], [place] [address]QRZ [Catalytic activity/Vol]28 Int._Unit/LNormal5-43[facility] HospitalComment on above:Performed By: #### [id number] #### [facility] [address] [place], [place] [address]Atgjjidpp [Mass/Vol]0.7 mg/dLNormal0.0-1.1FUniversity Hospitals TriPoint Medical CenterComment on above:Performed By: #### [id number] #### [facility] [address] [place], [place] [address]Zbltfey [Mass/Vol]9.1 mg/dLNormal8.9-11.1FUniversity Hospitals TriPoint Medical CenterComment on above:Performed By: #### [id number] #### [facility] [address] [place], [place] [address]Filsayhb [Moles/Vol]106 mmol/RFibyzx611-177RuxikoBucyrus Community HospitalComment on above:Performed By: #### [id number] #### [facility] [address] [place], [place] [address]JZ0 [Moles/Vol]25 mmol/CNbqqxq05-22JwxedeBucyrus Community Hospital Comment on above:Performed By: #### [id number] #### [facility] [address] [place], [place] [address]Snrcbpfgnv [Mass/Vol]0.9 mg/dLNormal0.5-1.3FUniversity Hospitals TriPoint Medical CenterComment on above:Performed By: #### [id number] #### [facility] [address] [place], [place] [address]Otkvosp [Mass/Vol]96 mg/qAAeqahf80-197SlwbymBucyrus Community HospitalComment on above:Performed By: #### [id number] #### [facility] [address] [place], [place] [address]Hdopxpnki [Moles/Vol]4.2 mmol/LNormal3.5-5.3FUniversity Hospitals TriPoint Medical CenterComment on above:Performed By: #### [id number] #### [facility] [address] [place], [place] [address]Qawamv [Moles/Vol]140 mmol/XWuyniv495-374BwomniBucyrus Community HospitalComment on above:Performed By: #### [id number] #### [facility] [address] [place], [place] [address]Qdog nitrogen [Mass/Vol]23 mg/dLHigh5-21Bu[facility] Community HospitalComment on above:Performed By: #### [id number] #### [facility] [address] [place], [place] [address]Pkdr nitrogen/Creatinine [Mass ratio]26 No GdmraXyex86-91QqaztbBucyrus Community HospitalComment on above:Performed By: #### [id number] #### [facility] [address] [place] [address] 01206UBBun 45-29-4255EDJ [Mass/Vol]0.1 mg/dLNormal<=1.9[facility] Community HospitalComment on above:Performed By: #### [id number] #### [facility] [address] [place] [address] 28373Cnjtobqyfb 98-53-7964Kzphruwz [Mass/Vol]42 ng/qZRlosij50-398 [facility] HospitalComment on above:Performed By: #### [id number] #### [facility] [address] [place] [address] 80835Rxwtpazq 58-07-9456Uqfzvj [Mass/Vol]9.0 ng/mLNormal>=6.7FUniversity Hospitals TriPoint Medical CenterComment on above:Performed By: #### [id number] #### [facility] [address] [place] [address] 50715Tphelb 96-23-5816Olyj [Mass/Vol]45 microgram/eWLtxxyr83-781 [facility] HospitalComment on above:Performed By: #### [id number] #### [facility] [address] [place] [address] 82533Dxnn Saturationon 25-57-0608Xazj binding capacity [Mass/Vol]302 microgram/kKBcaxol368-573XvaiuxBucyrus Community HospitalComment on above:Performed By: #### [id number] #### [facility] [address] [place] [address] 53324Lnkm saturation [Mass fraction]15 %Smp52-20TknkvbBucyrus Community HospitalComment on above:Performed By: #### [id number] #### [facility] [address] [place] [address] 42671BHNja 64-45-8518VSP587 Int._Unit/VTyinrd23-868YmvenfBucyrus Community HospitalComment on above:Performed By: #### [id number] #### [facility] [address] [place], [place] [address]Hlcsx Counton 17-48-2201Jvwpnndkceylv/100 RBC (Bld)1.8 %Normal 0.5-2.2FUniversity Hospitals TriPoint Medical CenterComment on above:Performed By: #### [id number] #### [facility] [address] [place], [place] [address]Ldynbcealfoyd 20-76-3997Govqdtztbcd [Mass/Vol]216 mg/dLNormal 200-370[facility] HospitalComment on above:Performed By: #### [id number] #### [facility] [address] [place] [address] 04220Prg B12on 62-13-8954Yexqgwhvu (Vitamin B12) [Mass/Vol]510 pg/mL Fibiph33-0739QvaacbBucyrus Community HospitalComment on above:Performed By: #### [id number] #### [facility] [address] [place] [address] 30764iCEHff 21-75-7000yOVK99 mL/min/1.73 m6Jpalyr>=59Bu[facility] Community HospitalComment on above:Performed By: #### [id number] #### [facility] [address] [place] [address] 58318KT Lumbar spine WO contraston 29-42-9815[place] [id number] [place] Scan Report Signed Patient: FANI CHUA MR#: [id number] : 1935 Acct:[id number] Age/Sex: 89 / M ADM Date: 10/04/24 Loc: CT Attending Dr: Buck Cerrato M.D. Ordering Physician: Buck Cerrato M.D. Date of Service: 10/04/24 Procedure(s): CT lumbar spine wo con Accession Number(s): [id number] cc: MARÍA ANDERSON [place] [id number] Patient Name: FANI CHUA MRN: [id number] date: 1935 Sex: M Assigned Patient Location: CT Current Patient Location: CT Accession/Order Number: [id number] Exam Date: 10/04/2024 14:51 Report Date: 10/04/2024 [...] CT exam. CT/CT lumbar spine wo con IMPRESSION:Redemonstration of extensive multilevel discovertebral degenerative changes. No acute lumbar spine abnormality. 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 Signed By: 10/04/24 1459 DD/ 1457 TD/TT: [employer] Tube Bender:BRANDONadiolkannan, RadiologistMD - 10/04/[address] [place] [address] CT Scan Report Signed Patient: FANI CHUA MR#: [id number] : 1935 Acct:[id number] Age/Sex: 89 / M ADM Date: 10/04/24 Loc: CT Attending Dr: Buck Cerrato M.D. Ordering Physician: Buck Cerrato M.D. Date of Service: 10/04/24 Procedure(s): CT lumbar spine wo con Accession Number(s): [id number] cc: [place] [address] Patient Name: FANI CHUA MRN: [id number] date: 1935 Sex: M Assigned Patient Location: CT Current Patient Location: CT Accession/Order Number: [id number] Exam Date: 10/04/2024 14:51 Report Date: 10/04/2024 [...] CT exam. CT/CT lumbar spine wo con IMPRESSION:Redemonstration of extensive multilevel discovertebral degenerative changes. No acute lumbar spine abnormality. Similar severe L4-5 spinal canal stenosis Impression dictated by: Trey Murray M.D.10/04/2024 2:57 PM Dictation Location: [place] [address] Electronically authenticated by: [id number] Y Date: 10/04/2024 14:57 Dictated By: Trey Murray D.O. Signed By: 10/04/24 1459 DD/ 56 TD/TT: [employer] Tube Bender: CHAPARRO HealthcareRadiology Study observation (narrative)CHAPARRO HealthcareCT Lumbar spine WO contrastOrdered By: Radiologist Radiology on 60-18-8760IAKN Healthcare Work Phone: coding Summaryon 18-88-4084Scigty SummaryHTMLBase 64 DjpzydtpNKw2oLr+PGhlYWQ+GE8BUSDvF76orNFucT4cJ1LQICfQDoloDVGGTEwZObShxoTzJJ8vsRLe ZXJu [file] cHN (more content not included)...[facility] HospitalCoding Summaryon 57-94-9731Bdsgxr SummaryHTMLBase 64 TyqwsjevTQg3lSi+PGhlYWQ+YH8PYIKoE42msMJvnU6rQ0OADNlUCbhaMBWZDOdQZhLfkePiPK4sdSUi ZXJu [file] cHN (more content not included)...NormalRegency Hospital Cleveland East HospitalCoding Summaryon 33-80-8301Bjcihx SummaryHTMLBase 64 YdoedgjtPOg0eCl+PGhlYWQ+BY7DXCPnI07gbKMqcK9dD2GEUEjFVmadOGTTUGpGIpXupsHqMB1uoWFq ZXJu [file] cHN (more content not included)...[facility] HospitalCoding Summaryon 91-05-5443Afouos SummaryHTMLBase 64 BlqgeefbBFi9gTz+PGhlYWQ+BA8JOCUlF25znBTbuF4cV9UNLFvDXyknGZKJQVqNXkCiruZzXB4aiKHy ZXJu [file] cHN (more content not included)...[facility] Memorial HospitalUroVysion Fish and Urine Cyto (P4 Labs)on 60-22-0779KBKCDV & UCDiagnosis InfoInvalid Interpretation CodeFisher Grace Medical CenterComment on above:Result Comment: A:Urine,Urine:Voided Diagnosis Summary - 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 Diagnosis Summary - The UroVysion FISH study detected normal copy numbers for chromosomes 3, 7, 17,and 9p21. 200 cells were analyzed in this evaluation. No evidence of aneuploidy for chromosomes 3, 7, or 17 or deletion of the 9p21 locus was found in cells present in this specimen. This test does not rule out the possibility of a low grade non-invasive papillary urothelial carcinoma. These findings should be correlated with cytology and cystoscopy results. * CPT: 52270, 94585. 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 Electronically signed by : on: 08/16/2024 13:39:45Performed By: #### [id number] #### [facility] [address] [place], [place] [address]Fyjxxgy Formson 28-65-0652Muoxyze Forms [id number]#1.00OTMercy Health St[facility] Coding Summaryon 54-90-8256Ltdioy SummaryHTMLBase 64 RshzpcljWCz2oFu+PGhlYWQ+SG3MFYYgM82wuSTtbG4pU9WFGFxIWqspDGLPEEuINbDbosZoFU1qmLWv ZXJu [file] cHN (more content not included)...NormalMagruder HospitalUroVysion Fish and Urine Cyto (P4 Labs)on 56-07-2562AOLJ Method of ExtractionVoidedNormalFisher Grace Medical CenterComment on above:Performed By: #### [id number] #### [facility] [address] [place], [place] [address]VTJC Number of Bylu3Dblixnl Interpretation [facility]. Charles HospitalComment on above:Performed By: #### [id number] #### [facility] [address] [place], [place] [address]MOKG SpecimenUrineNoSt. Elizabeth HospitalComment on above:Performed By: #### [id number] #### [facility] [address] [place], [place] [address]DPCX Type of ServiceTechnical OnlyMercy Health St. Rita's Medical CenterComment on above:Performed By: #### [id number] #### [facility] [address] [place], [place] [address]UZ ABDOMEN 1Von 68-30-9656X[address] [address] XRay Report Signed Patient: FANI CHUA MR#: [id number] : 1935 Acct:[id number] Age/Sex: 89 / M ADM Date: 08/03/24 Loc: [facility] Attending Dr: Julio C Ramirez M.D. Ordering Physician: Julio C Ramirez M.D. Date of Service: 08/03/24 Procedure(s): XR abdomen 1V Accession Number(s): [id number] cc: Julio C Ramirez M.D.; MARÍA ANDERSON [address] [address] Patient Name: FANI CHUA MRN: [id number] date: 1935 Sex: M Assigned Patient Location: RAD Current Patient Location: Accession/Order Number: [id number] Exam Date: 08/04/2024 10:46 Report Date: 08/04/2024 [...] Ramirez Jr., D.O.08/04/2024 10:47 AM Dictation Location: [place] [address] Electronically authenticated by: [id number] Y Date: 08/04/2024 10:47 Dictated By: Henry Ramirez M.D. Signed By: 08/04/24 1238 DD/ 1047 TD/TT: [employer] Tube Bender:TBHRadiology, Radiologist, - 08/04/2024 [place] [address] XRay Report Signed Patient: FANI CHUA MR#: [id number] : 1935 Acct:[id number] Age/Sex: 89 / M ADM Date: 08/03/24 Loc: RAD Attending Dr: Julio C Ramirez M.D. Ordering Physician: Julio C Ramirez M.D. Date of Service: 08/03/24 Procedure(s): XR abdomen 1V Accession Number(s): [id number] cc: Julio C Ramirez M.D.; MARÍA ANDERSON [place] [address] Patient Name: FANI CHUA MRN: [id number] date: 1935 Sex: M Assigned Patient Location: [facility] Current Patient Location: Accession/Order Number: [id number] Exam Date: 08/04/2024 10:46 Report Date: 08/04/2024 [...] Ramirez Jr., D.O.08/04/2024 10:47 AM Dictation Location: [place] [address] Electronically authenticated by: [id number] Y Date: 08/04/2024 10:47 Dictated By: Henry Ramirez M.D. Signed By: 08/04/24 1238 DD/ 1047 TD/TT: [employer] Tube Bender: CHAPARRO HealthcareRadiology Study observation (narrative)NOM HealthcareXR ABDOMEN 1VOrdered By: Radiologist Radiology on 87-11-0167JGHX Healthcare Work Phone: coding Summaryon 91-33-4618Pbzihu SummaryMLBase 64 RzzrpajlQRw5tHl+PGhlYWQ+YA0KFEVmR37lqQLrjX6fK6XKTTrBUpdnTSTMQVgWZtSwrjHgXG7poLIq ZXJu [file] cHN (more content not included)...[facility] HospitalCoding Summaryon 78-18-8843Sxfjpx SummaryHTMLBase 64 GygfsedhIOm5pUx+PGhlYWQ+VR0XJUVwI75uqQUwbJ9uT4RXAWpCErknQIQNWXuELzCzyePlZG9ecXNs ZXJu [file] cHN (more content not included)...[facility] HospitalCoding Summaryon 75-28-1549Mrhnkk SummaryHTMLBase 64 IbzmnsroFHr6fNs+PGhlYWQ+YF6IFZWuA33vnGSubC3tW5KPCNjSRaabMMDBSGhVKoEwqwSdDR4ysJXk ZXJu [file] cHN (more content not included)...[facility] Memorial HospitalAlanine aminotransferase [Enzymatic activity/volume] in Serum or PlasmaOrdered By: Gely Lin on 06-83-8088LFD [Catalytic activity/Vol]Alanine aminotransferase [Enzymatic activity/volume] in Serum or PlasmaMercy Health Lorain HospitalAlbumin [Mass/volume] in Serum or Plasma by Bromocresol green (BCG) dye binding methoOrdered By: Gely Lin on 88-71-0992Ztgtqbz BCG dye [Mass/Vol]Albumin [Mass/volume] in Serum or Plasma by Bromocresol green (BCG) dye binding metho3.5-5.7FSt. Anthony's HospitalAlkaline phosphatase [Enzymatic activity/volume] in Serum or PlasmaOrdered By: Gely Lin on 38-78-2900DKO [Catalytic activity/Vol]Alkaline phosphatase [Enzymatic activity/volume] in Serum or Xzknrb40-273VhxpzkupqMercy Health Lorain Hospital Anisocytosis LM Ql (Bld)Ordered By: Geyl Lin on 53-04-6292Kiicecvctsoy Ql (Bld)Anisocytosis [Presence] in Blood by Light microscopyMercy Health Lorain HospitalAppearance of UrineOrdered By: Gely Lin on 06-15-2024 Appearance (U)Urine appearanceAbnormalClearMercy Health Lorain Hospital Aspartate aminotransferase [Enzymatic activity/volume] in Serum or PlasmaOrdered By: Gely Lin on 28-72-8704MVA [Catalytic activity/Vol]Aspartate aminotransferase [Enzymatic activity/volume] in Serum or Kujpzk44-35MellipqjuMercy Health Lorain HospitalBacteria [Presence] in Urine by AutomatedOrdered By: Gely Lin on 01-79-9133Sratmoob Auto Ql (U)Bacteria [Presence] in Urine by AutomatedHighNone SeenMercy Health Lorain HospitalBasophils Auto (Bld) [#/Vol]Ordered By: Gely Lin 44-92-0733Kxsffbynp (Bld) [#/Vol]Automated basophil count0.0-0.2FSt. Anthony's HospitalBasophils/100 WBC Auto (Bld)Ordered By: Gely Lin 37-81-0105Seyuiuknz/100 WBC (Bld)Automated basophil %.Mer[facility] Health Lorain HospitalBilirubin Test strip Ql (U)Ordered By: Gely Lin on 63-29-1408Lkrkzcjuu Ql (U)Bilirubin.total [Presence] in Urine by Test stripNegativeMercy Health Lorain HospitalBilirubin.total [Mass/volume] in Serum or PlasmaOrdered By: Gely Lin on 06-15-2024 Bilirubin [Mass/Vol]Bilirubin.total [Mass/volume] in Serum or PlasmaHigh0.3-1.0 [facility] Lor[facility] HospitalComment on above:Samples from patients who have taken Naproxen have shown spurious elevation in Total Bilirubin levels. A metabolite of Naproxen, O-desmethylnaproxen, has been shown to interfere with the Tyler-Rob method for measuring Total Bilirubin.Blood Cultureon 07-62-7780Jeqbjbqy identified Cx Nom (Bld)NO GROWTH 5 DAYS PERFORMED BY: [address] [place] [address] PATHOLOGIST ADVERTISING [employer]ERKS SUPERVISOR SHIVAM CORREA M.D.NormalThe [facility] Physician GroupComment on above: Performed By: #### CUBLD, LACTIC #### [place] [address] USACOVID Cepheid NegativeOrdered By: Gely Lin on 55-35-1994OWRM-CoV-2 (COVID-19) Ab IA QlCOVID CepheidNegativeMercy Health Lorain HospitalComment on above:This is a duplicate Cepheid Xpert Xpress CoV- 2/Flu/RSV Plus RNA by RT-PCR result to be used for statistical tracking purpose only.COVID-19 / Flu A/B / RSV PCRon 56-27-2036IYZR-CoV-2 (COVID-19) RNA SHARRI+probe Ql (Unsp spec)COVID-19 Cepheid Result Negative for SARS-CoV-2 RNA by RT-PCR Flu A Cepheid Result Negative for Flu A RNA by RT-PCR Flu B Cepheid Result Negative for Flu B RNA by RT-PCR RSV Cepheid Result Negative for RSV RNA by RT-PCR COVID19 Blank Space Reference: Negative COVID19 Blank Space Cepheid Disclaimer The Cepheid Xpert Xpress CoV-2/Flu/RSV [...] or Cepheid Disclaimer revoked sooner. PERFORMED BY: [place] [address] PATHOLOGIST ADVERTISING [employer]PATCH CLERKS SUPERVISOR SHIVAM CORREA M.D.[facility] Physician GroupComment on above: Performed By: #### CEPHEID NEG, COVID19 FLU RSV #### [place] [address] USACT abdomen pelvis wo conon 23-41-0609QN abdomen pelvis wo [facility] [place] [address] CT Scan Report Signed Patient: Fani Chua MR#: [id number] : 1935 Acct:[id number] Age/Sex: 89 / M ADM Date: 06/15/24 Loc: ER Room: Type: [facility] ER Attending Dr: Copies to: Gely [...] Trey Murray M.D.06/15/2024 2:39 PM Dictation Location: [place] [address] Transcribed By: [facility] 06/15/24 1439 Dictated By: Trey Murray DO 06/15/24 1433 Signed By: 06/15/24 1439[facility] Physician GroupCalcium [Mass/volume] in Serum or PlasmaOrdered By: Gely Lin on 05-02-6218Erdqwao [Mass/Vol]Calcium [Mass/volume] in Serum or Plasma8.6-10.3FSt. Anthony's HospitalCarbon dioxide, total [Moles/volume] in Serum or PlasmaOrdered By: Gely Lin on 74-21-2705EO2 [Moles/Vol]Carbon dioxide, total [Moles/volume] in Serum or Plasma 21.0-31.0Mer[facility] Health Lorain HospitalCepheid COVID PCR Negativeon 62-51-0615VCJP-CoV-2 (COVID-19) RNA SHARRI+probe Ql (Unsp spec)NegativeNormal NegativeThe [facility] Physician GroupComment on above:Result Comment: This is a duplicate Cepheid Xpert Xpress CoV-2/Flu/RSV Plus RNA by RT-PCR result to be used for statistical tracking purpose only. PERFORMED BY: [facility] [address] [place] [address] PATHOLOGIST ADVERTISING [employer]ERKS SUPERVISOR SHIVAM CORREA M.D.Performed By: #### CEPHEID NEG, COVID19 FLU RSV ####[facility] [place] [address] [place] Chloride [Moles/volume] in Serum or PlasmaOrdered By: Gely Lin on 32-11-6454Srkmpaot [Moles/Vol]Chloride [Moles/volume] in Serum or Rnrsrn81-065 [facility] HospitalColor Auto (U)Ordered By: Gely Lin on 56-77-6002Jikpj (U)Color of Urine by AutoYellowMercy Health Lorain Hospital Comprehensive Metabolic Panelon 38-58-1756Kjnyqkp [Mass/Vol]3.8 g/dLNormal 3.5-5.7The [facility] Physician GroupComment on above:Performed By: #### CMP, LIPASE, SCAN CBC #### [place] [address] USAAlbumin/Globulin [Mass ratio]1.2 {ratio}NormalThe [facility] Physician GroupComment on above:Performed By: #### CMP, LIPASE, SCAN CBC #### [facility] [address] [place] [id number] USAALP [Catalytic activity/Vol]81 U/HBayekl65-588Vjf [facility] Physician GroupComment on above:Performed By: #### CMP, LIPASE, SCAN CBC #### [facility] [address] [place] [address] USAALT [Catalytic activity/Vol]23 U/LNormal7-52The [facility] Physician GroupComment on above:Performed By: #### CMP, LIPASE, SCAN CBC #### [facility] [address] [place] [address] USAAnion gap [Moles/Vol]12.6 mmol/LNormal6.0-15.0The [facility] Physician GroupComment on above:Performed By: #### CMP, LIPASE, SCAN CBC #### [facility] [address] [place] [address] USAAST [Catalytic activity/Vol]29 U/OXkeewx24-62Wdn [facility] Physician GroupComment on above:Performed By: #### CMP, LIPASE, SCAN CBC #### [facility] [address] [place] [address] USABilirubin [Mass/Vol]1.6 mg/dLHigh0.3-1.0The [facility] Physician GroupComment on above:Result Comment: Samples from patients who have taken Naproxen have shown spurious elevation in Total Bilirubin levels. A metabolite of Naproxen, O-desmethylnaproxen, has been shown to interfere with the Jenramuik-Grof method for measuring Total Bilirubin.Performed By: #### CMP, LIPASE, SCAN CBC #### [facility] [address] [place] [address] USACalcium [Mass/Vol]9.1 mg/dLNormal8.6-10.3The [facility] Physician GroupComment on above:Performed By: #### CMP, LIPASE, SCAN CBC #### [facility] [address] [place] [address] USAChloride [Moles/Vol]98 mmol/ZEdbits02-837Yvf [facility] Physician GroupComment on above:Performed By: #### CMP, LIPASE, SCAN CBC #### [facility] [address] [place] [address] USACO2 [Moles/Vol]27.2 mmol/AUgmhpa41.0-31.0The [facility] Physician GroupComment on above:Performed By: #### CMP, LIPASE, SCAN CBC #### [facility] [address] [place] [address] USACreatinine [Mass/Vol]1.02 mg/dLNormal0.70-1.30The [facility] Physician GroupComment on above:Performed By: #### CMP, LIPASE, SCAN CBC #### [facility] [address] [place] [address] USACreatinine Clr Calc Lqvllsre05.06NormHCA [facility] Hospital Physician GroupComment on above:Performed By: #### CMP, LIPASE, SCAN CBC #### [facility] [address] [place] [address] USAGFR/1.73 sq M.predicted MDRD (S/P/Bld) [Vol rate/Area] mL/min/{1.73_m2}NormalThe [facility] Physician GroupComment on above:Performed By: #### CMP, LIPASE, SCAN CBC #### [facility] [address] [place] [address] USAGlobulin (S) [Mass/Vol]3.3 g/dLNoCentral Harnett Hospital Physician GroupComment on above:Performed By: #### CMP, LIPASE, SCAN CBC #### [place] [address] USAGlucose [Mass/Vol]98 mg/aSGqleme99-095Kle [facility] Physician GroupComment on above:Result Comment: Random Glucose Reference Range is dependent on time and content of last meal. Glucose of more than 200 mg/dL in a nonstressed, ambulatory subject supports the diagnosis of Diabetes Mellitus. ADA recommended reference rangePerformed By: #### CMP, LIPASE, SCAN CBC #### [place] [address] USAPotassium [Moles/Vol]3.8 mmol/LNormal3.5-5.1The [facility] Physician GroupComment on above:Performed By: #### CMP, LIPASE, SCAN CBC #### [facility] [address] [place] [address] USAProtein [Mass/Vol]7.1 g/dLNormal6.4-8.9The [facility] Physician GroupComment on above:Performed By: #### CMP, LIPASE, SCAN CBC #### [facility] [address] [place] [address] USASodium [Moles/Vol]134 mmol/YPoh854-510Ulo [facility] Physician GroupComment on above:Performed By: #### CMP, LIPASE, SCAN CBC #### [facility] [address] [place] [address] USAUrea nitrogen [Mass/Vol]18 mg/dLNormal7-25The [facility] Physician GroupComment on above:Performed By: #### CMP, LIPASE, SCAN CBC #### [facility] [address] [place] [address] USACreatinine [Mass/volume] in Serum or PlasmaOrdered By: Gely Lin on 15-12-5388Sacppqccjf [Mass/Vol]Creatinine [Mass/volume] in Serum or Plasma0.70-1.30[facility] HospitalDipstick and Microscopicon 37-07-4934Bmuewivhyd (U)CloudyCritically abnormalClearThe [facility] Physician GroupComment on above:Order Comment: Name Collection Type:: Clean-Voided MidstreamPerformed By: #### ADDONUAPLUS, CUU ####[place] [address] [place], [place] USABacteria,Urine3+HighNone Seen The [facility] Physician GroupComment on above:Order Comment: Name Collection Type:: Clean-Voided MidstreamPerformed By: #### ADDONUAPLUS, CUU ####[place] [address] [place], [place] USABilirubin,Urine NegativeNormalNegativeThe [facility] Physician GroupComment on above:Order Comment: Name Collection Type:: Clean-Voided MidstreamPerformed By: #### ADDONUAPLUS, CUU ####[facility] [place] [address] USAColor (U)YellowNormalYellowThe [facility] Physician GroupComment on above:Order Comment: Name Collection Type:: Clean-Voided MidstreamPerformed By: #### ADDONUAPLUS, CUU ####[place] [address] [place], [place] USAGlucose Ql (U)NormalNormalNormalThe [facility] Physician GroupComment on above:Order Comment: Name Collection Type:: Clean- Voided MidstreamPerformed By: #### ADDONUAPLUS, CUU ####[address] USAHyaline Casts,Urine0 [LPF] Normal0-8The [facility] Physician GroupComment on above:Order Comment: Name Collection Type:: Clean-Voided MidstreamPerformed By: #### ADDONUAPLUS, CUU ####[address] USAKetones Ql (U)NegativeNormalNegativeMemorial Hospital Miramar Physician GroupComment on above:Order Comment: Name Collection Type:: Clean-Voided MidstreamPerformed By: #### ADDONUAPLUS, CUU ####[address] [address] USALeukocyte esterase Test strip Ql (U)4+HighNegativeThe [facility] Physician GroupComment on above:Order Comment: Name Collection Type:: Clean- Voided MidstreamPerformed By: #### ADDONUAPLUS, CUU ####[address] USAMucus,Urine1+Critically abnormalThe [facility] Physician GroupComment on above:Order Comment: Name Collection Type:: Clean-Voided MidstreamResult Comment: PERFORMED BY: [place] [id number] PATHOLOGIST ADVERTISING DISPATCH CLERKS SUPERVISOR SHIVAM CORREA M.D.Performed By: #### ADDONUAPLUS, CUU ####[address] USANitrite,UrineNegative NormalNegativeMemorial Hospital Miramar Physician GroupComment on above:Order Comment: Name Collection Type:: Clean-Voided MidstreamPerformed By: #### ADDONUAPLUS, CUU ####[address] USAOccult Blood,Urine3+HighNegativeThe [facility] Physician GroupComment on above:Order Comment: Name Collection Type:: Clean-Voided MidstreamResult Comment: PERFORMED BY: [address] [place] [address] PATHOLOGIST ADVERTISING DISPATCH CLERKS SUPERVISOR SHIVAM CORREA M.D.Performed By: #### JENISE, CUU ####[address], [place] USApH (U)5.5 [pH]Normal 5.0-9.0The [facility] Physician GroupComment on above:Order Comment: Name Collection Type:: Clean-Voided MidstreamPerformed By: #### JENISE, CUU ####[address] USAProtein (U) [Mass/Vol]70 mg/dLHighNegativeMemorial Hospital [facility]amar Physician GroupComment on above: Order Comment: Name Collection Type:: Clean-Voided MidstreamPerformed By: #### JENISE, CUU ####[place] [id number] USARBC,Urine50 [HPF]High0-4The [facility] Physician GroupComment on above: Order Comment: Name Collection Type:: Clean-Voided MidstreamPerformed By: #### JENISE, CUU ####[place] [id number] USASpecificy [place],Urine1.522Wxsgcl2.001-1.030The [facility] Physician GroupComment on above:Order Comment: Name Collection Type:: Clean-Voided MidstreamPerformed By: #### JENISE, CUU ####[address] USAUrobilinogen,UrineNormalNormalNormalThe [facility] Physician GroupComment on above:Order Comment: Name Collection Type:: Clean-Voided MidstreamPerformed By: #### JENISE, CUU ####[address] USAWBC CLUMP, UrineMany HighNone SeenThe [facility] Physician GroupComment on above:Order Comment: Name Collection Type:: Clean-Voided MidstreamPerformed By: #### JENISE, CUU ####[facility] [address] [place], [place] [place] WBC,UrineInnumerableHigh0-4The [facility] Physician GroupComment on above:Order Comment: Name Collection Type:: Clean-Voided MidstreamPerformed By: #### JENISE, CUU ####[facility] [place] [address] USAECG 12 lead ECGon 45-45-5002RVE 12 lead ECGDELAWARE COUNTY HOS[facility] Main [address] [address] [place], [place] [id number] Electrocardiograph Report Signed Patient: Fani Chua MR#: [id number] : 1935 Acct:[id number] Age/Sex: 89 / M ADM Date: 06/15/24 Loc: ER Room: Type: [facility] ER Attending Dr: Ordering Provider: Gely [...] intraventricular block Confirmed by Bipin Ortiz DO ([id number]) on 06/15/2024 3:57:48 PM Referred By: Electronically Signed By: Bipin Ortiz DO Transcribed By: MUS Signed By Bipin Ortiz DO 1557[facility] Physician GroupEosinophils Auto (Bld) [#/Vol] Ordered By: Gely Lin on 94-74-1453Rhpmlfxsspu (Bld) [#/Vol]Automated eosinophil count0.0-0.45[facility] HospitalEosinophils/100 WBC Auto (Bld)Ordered By: Gely Lin on 47-95-3615Larjryorzjn/100 WBC (Bld) Automated eosinophil %.[facility] HospitalEpithelial cells.squamous [#/area] in Urine sediment by Automated countOrdered By: Gely Lin on 43-77-4183Eyomwuudrb cells.squamous Auto (Urine sed) [#/Area] Epithelial cells.squamous [#/area] in Urine sediment by Automated countMercy Health Lorain HospitalErythrocyte distribution width Auto (RBC) [Ratio]Ordered By: Gely Lin on 45-23-9642Kgzjpyigmaw distribution width (RBC) [Ratio] Erythrocyte distribution width [Ratio] by Automated tqjouZkiy48.0-14.8[facility] HospitalErythrocyte morphology finding [Identifier] in Blood Ordered By: Gely Lin on 96-64-7833XCT morphology finding Nom (Bld)RBC morphologyMercy Health Lorain HospitalErythrocytes [#/area] in Urine sediment by Automated countOrdered By: Gely Lin on 31-27-8690SQD Auto (Urine sed) [#/Area]Erythrocytes [#/area] in Urine sediment by Automated count High0-4FSt. Anthony's HospitalGlobulin Calc (S) [Mass/Vol]Ordered By: Gely Lin on 34-80-1794Fixacpjy (S) [Mass/Vol]Serum globulin measurement by calculation (mass/volume)[facility] HospitalGlucose [Mass/volume] in Serum or PlasmaOrdered By: Gely Lin on 74-77-4196Fnpdbqt [Mass/Vol]Glucose [Mass/volume] in Serum or Xtoszg52-986QluzabhevMercy Health Lorain HospitalComment on above:ADA recommended reference rangeRandom Glucose Reference Range is dependent on time and content of last meal. Glucose of more than 200 mg/dL in a nonstressed, ambulatory subject supports the diagnosisof Diabetes Mellitus.Glucose [Mass/volume] in Urine by Test stripOrdered By: Gely Lin on 50-09-9474Flyjihc Test strip (U) [Mass/Vol]Glucose [Mass/volume] in Urine by Test stripNormalMercy Health Lorain Hospital Hematocrit Auto (Bld) [Volume fraction]Ordered By: Gely Lin on 06-15-2024 Hematocrit (Bld) [Volume fraction]Hematocrit [Volume Fraction] of Blood by Automated ncnwxShl45.8-50.0[facility] HospitalHemoglobin Test strip Ql (U)Ordered By: Gely Lin on 24-67-4460Dxthjtafsu Ql (U)Hemoglobin [Presence] in Urine by Test stripHighNegParkview Health Bryan Hospital Hemoglobin [Mass/volume] in BloodOrdered By: Gely Lin on 06-15-2024 Hemoglobin (Bld) [Mass/Vol]Hemoglobin [Mass/volume] in EtzmaRve48.0-17.0 [facility] HospitalHyaline casts [#/area] in Urine sediment by Automated countOrdered By: Gely Lin on 76-35-9382Qmgkakr casts Auto (Urine sed) [#/Area]Hyaline casts [#/area] in Urine sediment by Automated count 0-8[facility] HospitalHypochromia LM Ql (Bld)Ordered By: Gely Lin on 74-44-6165Sylbvzcdxfn Ql (Bld)Hypochromia [Presence] in Blood by Light microscopyMercy Health Lorain HospitalKetones Test strip Ql (U)Ordered By: Gely Lin on 69-82-5917Jqthmnp Ql (U)Ketones [Presence] in Urine by Test stripNegParkview Health Bryan HospitalLactate [Moles/volume] in Serum or PlasmaOrdered By: Gely Lin on 05-63-5968Rwhsjpy [Moles/Vol]Lactate [Moles/volume] in Serum or Plasma0.5-2.2FSt. Anthony's HospitalLactic Acidon 85-71-8426Etgutvf [Moles/Vol]1.6 mmol/LNormal0.5-2.2The [facility] Physician GroupComment on above:Result Comment: PERFORMED BY: [place] [address] PATHOLOGIST ADVERTISING [employer] SUPERVISOR SHIVAM CORREA M.D.Performed By: #### CUBLD, LACTIC #### [place] [address] USALeukocyte clumps [Presence] in Urine by AutomatedOrdered By: Gely Lin on 47-79-4978Iynbswqmp clumps Auto Ql (U)Leukocyte clumps [Presence] in Urine by AutomatedHighNone SeenMercy Health Lorain Hospital Leukocyte esterase [Presence] in Urine by Test stripOrdered By: Gely Lin on 19-75-0984Ltevlzhzm esterase Test strip Ql (U)Leukocyte esterase [Presence] in Urine by Test stripHighNegativeMercy Health Lorain HospitalLeukocytes [#/area] in Urine sediment by Automated countOrdered By: Gely Lin on 97-40-9109UTU Auto (Urine sed) [#/Area]Leukocytes [#/area] in Urine sediment by Automated countHigh0-4FSt. Anthony's HospitalLeukocytes [#/volume] corrected for nucleated erythrocytes in Blood by Automated counOrdered By: eGly Lin on 79-62-9937ZVY corrected for nucl RBC Auto (Bld) [#/Vol] Leukocytes [#/volume] corrected for nucleated erythrocytes in Blood by Automated coun4.1-10.5FSt. Anthony's HospitalLipaseon 79-73-3447Lodthz [Catalytic activity/Vol]16.0 U/VBdplsc47.0-82.0The [facility] Physician Group Comment on above:Result Comment: PERFORMED BY: [place] [address] PATHOLOGIST ADVERTISING [employer] SUPERVISOR SHIVAM CORREA M.D.Performed By: #### CMP, LIPASE, SCAN CBC #### [place] [address] USALipase [Enzymatic activity/volume] in Serum or Plasma Ordered By: Gely Lin on 57-47-5383Ivdzjg [Catalytic activity/Vol]Lipase [Enzymatic activity/volume] in Serum or Yhlbxu72.0-82.0Mer[facility] HospitalLymphocytes Auto (Bld) [#/Vol]Ordered By: Gely Lin on 98-80-3148Ctkcbzidrsg (Bld) [#/Vol]Lymphocytes [#/volume] in Blood by Automated count1.00-4.8[facility] HospitalLymphocytes/100 WBC Auto (Bld) Ordered By: Gely Lin on 03-44-7890Cudkwtiycgg/100 WBC (Bld) Lymphocytes/100 leukocytes in Blood by Automated count.[facility] HospitalMCH Auto (RBC) [Entitic mass]Ordered By: Gely Lin on 56-88-2327AQD (RBC) [Entitic mass]MCH [Entitic mass] by Automated count27.5-35.2 [facility] HospitalMCHC Auto (RBC) [Mass/Vol]Ordered By: Gely Lin on 94-18-7628PSNS (RBC) [Mass/Vol]MCHC [Mass/volume] by Automated count 32.5-35.6FSt. Anthony's HospitalMCV Auto (RBC) [Entitic vol]Ordered By: Gely Lin on 11-40-8269AQC (RBC) [Entitic vol]MCV [Entitic volume] by Automated count83.5-101Mer[facility] HospitalMonocyte distribution width [Entitic volume] in Blood by AutomatedOrdered By: Gely Lin on 62-33-0159Sdzgiufn distribution width Auto (Bld) [Entitic vol]Monocyte distribution width [Entitic volume] in Blood by AutomatedHigh0.00-20.00[facility] HospitalComment on above:The predictive value of MDW for identifying sepsis in patients with hematological abnormalities hasnot been establishedMonocytes Auto (Bld) [#/Vol]Ordered By: Gely Lin on 06-15-2024 Monocytes (Bld) [#/Vol]Automated blood monocyte countHigh0.0-0.8[facility] HospitalMonocytes/100 WBC Auto (Bld)Ordered By: Gely Lin on 36-64-1958Amjpzpdvt/100 WBC (Bld)Automated monocyte %.[facility] HospitalMucus [Presence] in Urine by AutomatedOrdered By: Gely Lin on 86-17-9215Qmtgo Auto Ql (U)Mucus [Presence] in Urine by AutomatedAbnormal [facility] HospitalNeutrophils Auto (Bld) [#/Vol]Ordered By: Gely Lin on 01-92-9575Ljvhfpjbnlb (Bld) [#/Vol]Neutrophils [#/volume] in Blood by Automated count1.8-7.7FSt. Anthony's HospitalNeutrophils/100 WBC Auto (Bld)Ordered By: Gely Lin on 63-00-8170Yrjlunhxjae/100 WBC (Bld) Automated neutrophil %.[facility] HospitalNitrite Test strip Ql (U)Ordered By: Gely Lin on 82-67-8831Xzkdggs Ql (U)Nitrite [Presence] in Urine by Test stripNegativeMercy Health Lorain HospitalNo Panel Information Ordered By: Gely Lin on 56-80-3384Uacfzwhhk GFR (CKD-EPI)> 60.0 mL/Min [facility] HospitalPharmacy Creatinine Clearance (Chem50.06 [facility] HospitalNucleated erythrocytes [Presence] in Blood by Automated countOrdered By: Gely Lin on 61-83-1204Lbcrkyaks RBC Auto Ql (Bld)Nucleated erythrocytes [Presence] in Blood by Automated count0-0.5FSt. Anthony's HospitalPlatelet adequacy [Presence] in Blood by Light microscopyOrdered By: Gely Lin on 00-92-2189Iporymjus LM Ql (Bld)Platelet adequacy [Presence] in Blood by Light microscopyNoToledo HospitalPlatelet mean volume Auto (Bld) [Entitic vol]Ordered By: Gely Lin on 64-92-8884Qziyysyi mean volume (Bld) [Entitic vol]Platelet mean volume [Entitic volume] in Blood by Automated count6.6-10.1FSt. Anthony's HospitalPlatelet morphology finding [Identifier] in BloodOrdered By: Gely Lin on 96-76-9241Erqeievo morphology finding Nom (Bld)Platelet morphology finding [Identifier] in BloodNoToledo HospitalPlatelets Auto (Bld) [#/Vol]Ordered By: Gely Lin on 74-40-3334Trdfcgagu (Bld) [#/Vol]Platelets [#/volume] in Blood by Automated tzwfyAxj487-340JgmcxyigxMercy Health Lorain HospitalPolychromasia [Presence] in Blood by Light microscopy Ordered By: Gely Lin on 14-72-1524Yxojmxuvppeqr LM Ql (Bld)Polychromasia [Presence] in Blood by Light microscopyMercy Health Lorain Hospital Potassium [Moles/volume] in Serum or PlasmaOrdered By: Gely Lin on 71-85-5679Ahnfrtstw [Moles/Vol]Potassium [Moles/volume] in Serum or Plasma 3.5-5.1FSt. Anthony's HospitalProtein Test strip (U) [Mass/Vol]Ordered By: Gely Lin on 62-85-9123Fvoultp (U) [Mass/Vol]Protein [Mass/volume] in Urine by Test stripHighNegativeMercy Health Lorain HospitalProtein [Mass/volume] in Serum or PlasmaOrdered By: Gely Lin on 43-41-3886Nxavoia [Mass/Vol]Protein [Mass/volume] in Serum or Plasma6.4-8.9Mer[facility] HospitalRBC Auto (Bld) [#/Vol]Ordered By: Gely Lin on 58-51-8063UCU (Bld) [#/Vol]Erythrocytes [#/volume] in Blood by Automated count3.90-5.60 [facility] HospitalRespiratory specimen influenza A virus, influenza B virus, respiratory syncytical virOrdered By: Gely Lin on 74-66-2931OHCI-CoV-2 (COVID-19) RNA SHARRI+probe Ql (Unsp spec)Respiratory specimen influenza A virus, influenza B virus, respiratory syncytical virAkron Children's Hospitalcan and CBCon 51-17-8942Vbvtpwnsstnl Ql (Bld)Moderate NormalThe [facility] Physician GroupComment on above:Performed By: #### CMP, LIPASE, SCAN CBC #### [facility] [address] [place] [id number] USABasophils (Bld) [#/Vol]0.0 10*3/uLNormal0.0-0.2The [facility] Physician GroupComment on above:Performed By: #### CMP, LIPASE, SCAN CBC #### [facility] [address] [place] [id number] USABasophils/100 WBC (Bld)0.4 %Normal.The [facility] Physician GroupComment on above:Performed By: #### CMP, LIPASE, SCAN CBC #### [facility] [address] [place] [id number] USAEosinophils (Bld) [#/Vol]0.0 10*3/uLNormal0.0-0.45The [facility] Physician GroupComment on above:Performed By: #### CMP, LIPASE, SCAN CBC #### [facility] [address] [place] [address] USAEosinophils/100 WBC (Bld)0.1 %Normal.The [facility] Physician GroupComment on above:Performed By: #### CMP, LIPASE, SCAN CBC #### [facility] [address] [place] [address] USAErythrocyte distribution width (RBC) [Ratio]17.6 %High 12.0-14.8The [facility] Physician GroupComment on above:Performed By: #### CMP, LIPASE, SCAN CBC #### [place] [address] USAHematocrit (Bld) [Volume fraction]36.9 %Low38.8-50.0The [facility] Physician GroupComment on above:Performed By: #### CMP, LIPASE, SCAN CBC #### [place] [address] USAHemoglobin (Bld) [Mass/Vol]12.3 g/dLLow13.0-17.0The [facility] Physician GroupComment on above:Performed By: #### CMP, LIPASE, SCAN CBC #### [place] [address] USAHypochromasiaSlightNormalThe [facility] Physician Group Comment on above:Performed By: #### CMP, LIPASE, SCAN CBC #### [place] [address] USALymphocytes (Bld) [#/Vol]1.1 10*3/uLNormal1.00-4.8The [facility] Physician GroupComment on above:Performed By: #### CMP, LIPASE, SCAN CBC #### [place] [address] USALymphocytes/100 WBC (Bld)15.5 %Normal.The [facility] Physician GroupComment on above:Performed By: #### CMP, LIPASE, SCAN CBC #### [place] [address] USAMCH (RBC) [Entitic mass]29.3 yfHyjiur33.5-35.2The [facility] Physician GroupComment on above:Performed By: #### CMP, LIPASE, SCAN CBC #### [place] [address] USAMCV (RBC) [Entitic vol]87.9 lGMdzdyy39.5-101The [facility] Physician GroupComment on above:Performed By: #### CMP, LIPASE, SCAN CBC #### [place] [address] USAMean Corpuscular HGB Conc33.3 g/ePOaobft01.5-35.6The [facility] Physician GroupComment on above:Performed By: #### CMP, LIPASE, SCAN CBC #### [place] [address] USAMonocytes (Bld) [#/Vol]1.2 10*3/uLHigh0.0-0.8The [facility] Physician GroupComment on above:Performed By: #### CMP, LIPASE, SCAN CBC #### [place] [address] USAMonocytes/100 WBC (Bld)27.32 %High0.00-20.00The [facility] Physician GroupComment on above:Result Comment: The predictive value of MDW for identifying sepsis in patients with hematological abnormalities has not been establishedPerformed By: #### CMP, LIPASE, SCAN CBC #### [place] [address] USAMonocytes/100 WBC (Bld)17.4 %Normal.The [facility] Physician GroupComment on above:Performed By: #### CMP, LIPASE, SCAN CBC #### [place] [address] USANeutrophils (Bld) [#/Vol]4.6 10*3/uLNormal1.8-7.7The [facility] Physician GroupComment on above:Performed By: #### CMP, LIPASE, SCAN CBC #### [place] [address] USANeutrophils/100 WBC (Bld)66.6 %Normal.The [facility] Physician GroupComment on above:Performed By: #### CMP, LIPASE, SCAN CBC #### [place] [address] USANRBC%0.1 /100{WBC}Normal0-0.5The [facility] Physician [facility] Comment on above:Performed By: #### CMP, LIPASE, SCAN CBC #### [place] [address] USAPlatelet EstimateDecreasedNormalBroward Health [facility] Physician [facility] HealthComment on above:Performed By: #### CMP, LIPASE, SCAN CBC #### [place] [address] USAPlatelet mean volume (Bld) [Entitic vol]8.0 fLNormal 6.6-10.1The [facility] Physician GroupComment on above:Performed By: #### CMP, LIPASE, SCAN CBC #### [place] [address] USAPlatelet MorphologyNormalNormRiver Point Behavioral Health Physician GroupComment on above:Result Comment: PERFORMED BY: [place] [address] PATHOLOGIST ADVERTISING [employer]ER[employer] SUPERVISOR SHIVAM CORREA M.D.Performed By: #### CMP, LIPASE, SCAN CBC #### [place] [address] USAPlatelets (Bld) [#/Vol]134 10*3/nOOap013-056Tgx [facility] Physician GroupComment on above:Performed By: #### CMP, LIPASE, SCAN CBC #### [place] [address] USAPolychromasiaSlightNoCentral Harnett Hospital Physician [facility] Comment on above:Performed By: #### CMP, LIPASE, SCAN CBC #### [place] [address] USARBC (Bld) [#/Vol]4.20 10*6/uLNormal3.90-5.60The [facility] Physician GroupComment on above:Performed By: #### CMP, LIPASE, SCAN CBC #### [address] [place] [address] USAWBC (Bld) [#/Vol]6.9 10*3/uLNormal4.1-10.5The [facility] Physician GroupComment on above:Performed By: #### CMP, LIPASE, SCAN CBC #### [facility] [address] [place] [id number] USASerum or plasma albumin/globulin mass ratioOrdered By: Gely Lin on 75-45-0143Fftisme/Globulin [Mass ratio]Serum or plasma albumin/globulin mass ratioAkron Children's Hospitalerum or plasma anion gap determinationOrdered By: Gely Lin on 14-81-6306Jnrau gap [Moles/Vol]Serum or plasma anion gap determination6.0-15.0Akron Children's Hospitalodium [Moles/volume] in Serum or PlasmaOrdered By: Gely Lin on 24-70-4322Znvtxa [Moles/Vol]Sodium [Moles/volume] in Serum or Plasma Lvv914-648CvpkagbfmAkron Children's Hospitalpecific gravity Test strip (U) [Rel density]Ordered By: Gely Lin on 06-32-6432Ysjkxqhq gravity (U) [Rel density]Specific gravity of Urine by Test strip1.001-1.030[facility] HospitalUrea nitrogen [Mass/volume] in Serum or PlasmaOrdered By: Gely Lin on 53-57-1876Tzse nitrogen [Mass/Vol]Urea nitrogen [Mass/volume] in Serum or Plasma7-25[facility] HospitalUrine Cultureon 06-15-2024 Bacteria identified Cx Nom (U)ORGANISM: Enterobacter cloacae complex (O:ENTCLOCPLX) [place] Count >100,000 Aerobic [place] Charge (NMIC56) SUSCEPTIBILITY ORGANISM: O:ENTCLOCPLX ANTIBIOTIC INTERPRETATION [place] Amikacin S <16 Aztreonam IB <4 Cefepime S <2 Ceftazidime IB <1 Ceftriaxone IB <1 Cefuroxime IB 8 Ciprofloxacin S <0.25 Ertapenem S <0.5 Gentamicin S <2 Levofloxacin S <0.5 Meropenem S <1 Meropenem/Vaborbactam S <2 Nitrofurantoin S <32 Piperacillin/Tazobactam IB <8 Tetracycline S <4 Tigecycline S <2 Tobramycin S <2 Trimethoprim/Sulfamethoxazole S <0.5 S = SUSCEPTIBLE I = [...] RESISTANT TO ALL B-LACTAM DRUGS. PERFORMED BY: [place] [address] PATHOLOGIST ADVERTISING [employer]ER[employer] SUPERVISOR SHVIAM CORREA M.D.NormalMemorial Hospital Miramar Physician GroupComment on above: Performed By: #### JENISE, CUU ####[facility] [place], [place] USAUrobilinogen Test strip (U) [Mass/Vol]Ordered By: Gely Lin on 66-94-5689Vnmxihxnnnmx (U) [Mass/Vol]Urobilinogen [Mass/volume] in Urine by Test stripNoToledo HospitalWBC Auto (Bld) [#/Vol]Ordered By: Gely Lin on 62-93-1275FEO (Bld) [#/Vol] Leukocytes [#/volume] in Blood by Automated count4.1-10.5FSt. Anthony's HospitalX-ray reportOrdered By: Trey Murray on 92-77-8182Oogrs report [facility] [address] [place] [address] XRay Report Signed Patient: Fani Chua MR#: [id number] : 1935 Acct:[id number] Age/Sex: 89 / M ADM Date: 5 Loc: ER Room: Type: [facility] ER Attending Dr: Copies to: Gely [...] Trey Murray M.D.06/15/2024 2:41 PM Dictation Location: RADIO-PC-20 Transcribed By: HENRRY 06/15/24 1441 Dictated By: Trey Murray DO 06/15/24 1440 Signed By: 06/15/24 1441 [facility] HospitalXR chest 2V*on 22-99-7738QG chest 2V*[facility] [address] [place] [address] XRay Report Signed Patient: Fani Chua MR#: [id number] : 1935 Acct:[id number] Age/Sex: 89 / M ADM Date: 06/15/24 Loc: ER Room: Type: [facility] ER Attending Dr: Copies to: Gely [...] Trey Murray M.D.06/15/2024 2:41 PM Dictation Location: RADIO-PC-20 Transcribed By: HENRRY 06/15/24 1441 Dictated By: Trey Murray DO 06/15/24 1440 Signed By: 06/15/24 1441[facility] Physician GrouppH Test strip (U)Ordered By: Gely Lin on 29-70-4141jH (U)pH of Urine by Test strip5.0-9.0[facility] HospitalCoding Summaryon 20-18-5548Cyygpw SummaryHTMLBase 64 HfvradscRPy8pQw+PGhlYWQ+ZG9PVCEhJ78lbTQqeB5uL1HFXXfERqpvBYGLWLlZKsSafoSnIU5gjMBy ZXJu [file] cHN (more content not included)...[facility] HospitalCoding Summaryon 59-79-4720Uwrthk SummaryMLBase 64 SwlgskmnTGv2gLg+PGhlYWQ+LL8OMGEiO11kkHWxpH1iC2OKNZeGTsuwMWSWJTdBXqPnmpQoEL8odWOf ZXJu [file] cHN (more content not included)...[facility] Metabolic Panelon 00-64-3631Kuqgk gap [Moles/Vol]7.5 mmol/LNormal6.0-15.0The [facility] Physician GroupComment on above:Performed By: #### BMP #### [facility] [address] [place] [address] USACalcium [Mass/Vol]9.2 mg/dLNormal8.6-10.3The [facility] Physician GroupComment on above:Result Comment: PERFORMED BY: [place] [address] PATHOLOGIST ADVERTISING [employer]ER[employer] SUPERVISOR SHIVAM CORREA M.D.Performed By: #### BMP #### [facility] [address] [place] [address] USAChloride [Moles/Vol]105 mmol/OBwafpm76-336Gal [facility] Physician GroupComment on above:Performed By: #### BMP #### [place] [address] USACO2 [Moles/Vol]27.7 mmol/ZYghlie72.0-31.0The [facility] Physician GroupComment on above:Performed By: #### BMP #### [place] [address] USACreatinine [Mass/Vol]0.85 mg/dLNormal0.70-1.30The [facility] Physician GroupComment on above:Performed By: #### BMP #### [place] [address] USAGFR/1.73 sq M.predicted MDRD (S/P/Bld) [Vol rate/Area] mL/min/{1.73_m2}NormalThe [facility] Physician GroupComment on above:Performed By: #### BMP #### [place] [address] USAGlucose [Mass/Vol]133 mg/iGOarl00-267Gig [facility] Physician GroupComment on above:Result Comment: Random Glucose Reference Range is dependent on time and content of last meal. Glucose of more than 200 mg/dL in a nonstressed, ambulatory subject supports the diagnosis of Diabetes Mellitus. ADA recommended reference rangePerformed By: #### BMP #### [place] [address] USAPotassium [Moles/Vol]4.2 mmol/LNormal3.5-5.1The [facility] Physician GroupComment on above:Performed By: #### BMP #### [place] [address] USASodium [Moles/Vol]136 mmol/QCbfwob746-405Hyf [facility] Physician GroupComment on above:Performed By: #### BMP #### [place] [address] USAUrea nitrogen [Mass/Vol]23 mg/dLNormal7-25The [facility] Physician GroupComment on above:Performed By: #### BMP #### [place] [id number] USACalcium [Mass/volume] in Serum or PlasmaOrdered By: Bonita Kingsley on 48-83-5796Fuhplyo [Mass/Vol]Calcium [Mass/volume] in Serum or Plasma 8.6-10.3FSt. Anthony's HospitalCarbon dioxide, total [Moles/volume] in Serum or PlasmaOrdered By: Bonita Kingsley on 57-50-2687XH3 [Moles/Vol]Carbon dioxide, total [Moles/volume] in Serum or Yqelok11.0-31.0[facility] HospitalChloride [Moles/volume] in Serum or PlasmaOrdered By: Bonita Kingsley 63-38-8632Vzivbash [Moles/Vol]Chloride [Moles/volume] in Serum or Cpshyo09-041NqbndjuruMercy Health Lorain HospitalCreatinine [Mass/volume] in Serum or PlasmaOrdered By: Bonita Kingsley 71-55-4186Nwoavrvmho [Mass/Vol]Creatinine [Mass/volume] in Serum or Plasma0.70-1.30[facility] Glucose [Mass/volume] in Serum or PlasmaOrdered By: Bonita Kingsley on 05-06-2024 Glucose [Mass/Vol]Glucose [Mass/volume] in Serum or PrwkblMhwm26-380AvjgqwvfdMercy Health Lorain HospitalComment on above:ADA recommended reference rangeRandom Glucose Reference Range is dependent on time and content of last meal. Glucose of more than 200 mg/dL in a nonstressed, ambulatory subject supports the diagnosisof Diabetes Mellitus.No Panel InformationOrdered By: Bonita Kingsley on 74-40-4706Arkicdaja GFR (CKD-EPI)> 60.0 mL/MinMercy Health Lorain Hospital Pharmacy Creatinine Clearance (ChemN/[facility] HospitalPotassium [Moles/volume] in Serum or PlasmaOrdered By: Bonita Kingsley on 05-06-2024 Potassium [Moles/Vol]Potassium [Moles/volume] in Serum or Plasma3.5-5.1FOhioHealth Dublin Methodist Hospitalerum or plasma anion gap determinationOrdered By: Bonita Kingsley 84-14-6735Pycdx gap [Moles/Vol]Serum or plasma anion gap determination6.0-15.0[facility] Hospitalodium [Moles/volume] in Serum or PlasmaOrdered By: Bonita Kingsley on 49-92-2077Rdqbyv [Moles/Vol]Sodium [Moles/volume] in Serum or Nvotoz117-339EsqjicytqMercy Health Lorain HospitalUrea nitrogen [Mass/volume] in Serum or PlasmaOrdered By: Bonita Kingsley on 01-05-0488Vbsx nitrogen [Mass/Vol]Urea nitrogen [Mass/volume] in Serum or Plasma 7-25[facility] HospitalCoding Summaryon 51-85-3223Tmhpfr Summary HTMLBase 64 MsxabktfFKm7zPj+PGhlYWQ+QB4TFHHhZ28tzKViwC8sJ8WWXErSQvhoVSULMNsPVbVbhyAmIN3ptXOb ZXJu [file] cHN (more content not included)...[facility] HospitalConsent Formson 95-79-8759Mbzcqae [id number]#1.00OTGTIFF [facility] HospitalCoding Summaryon 72-10-2211Jphtyq SummaryHTMLBase 64 DetrdjotEXt5wEs+PGhlYWQ+ZU6TTGQrR11sxRTadV7zN2EYKNtRAmdxQHLAEQdLYzOwqlVgGN3tsOXt ZXJu [file] cHN (more content not included)...[facility] HospitalCoding Summaryon 13-47-1009Fnsjrw SummaryHTMLBase 64 UkgymnfzATk7dYd+PGhlYWQ+HS0NXSJcO38ehAFnlM1nN0ULDYtGXvaxKPLLSWnBQpQtydHdCL5fmZOz ZXJu [file] cHN (more content not included)...NormalMagruder HospitalCoding SummaryHTMLBase 64 LrtqymulYYk4lYh+PGhlYWQ+JN0MHGHaD79gwBEchK4vZ2SLPDcZSgdaQKHEPQiLZcNfbeDsCF8heMZg ZXJu [file] N (more content not included)...[facility] HospitalTRANSTHORACIC ECHO (TTE) COMPLETEon 72-93-6103HKEGOSWVYXLUG ECHO (TTE) [address], [address] [address] TRANSTHORACIC ECHOCARDIOGRAM REPORT Patient Name: FANI Johnson MAGGI Reading Physician: [id number] Bonita Kingsley MD, [facility] Study Date: 04/13/2024 Ordering Provider: [id number] BONITA KINGSLEY MRN/PID: [id number] Fellow: Nurse: Date of /Age: 12 1935 / 88 years Field Map Editor: Karly Lin RDCS, T Gender: M Additional [...] Cancer CPT Codes: Echo Complete w Full Doppler-35715 Study Detail: The following Echo studies were [...] 3.15 m/s AI Coyle (more content not included)...NormalUnTogus VA Medical CenterUS Heart Transthoracicon 62-73-3400Rycoen Valve Area by Continuity of Peak Velocity2.69 ci9MvnwkczumePike Community Hospital Work Phone: aortic Valve Area by Continuity of VTI2.67 cm2 [facility] Work Phone: aV mn fkbb1onLoXcvfpznpacBucyrus Community Hospital Work Phone: [phone] pk grad16.3mmHgUnBucyrus Community Hospital Work Phone: aV pk vel2.02 m/[facility] Work Phone: [phone] A4C EF35.9[facility] Work Phone: [phone] Biplane EF30 %[facility] Work Phone: [phone] EF40 %[facility] Work Phone: [phone] [facility] Work Phone: [phone] diam2.7 cmPike Community Hospital Work Phone: [phone] Community Hospital Work Phone: [address], [place] [address] TRANSTHORACIC ECHOCARDIOGRAM REPORT Patient Name: FANI Caldwell Physician: [id number] Bonita Kingsley MD, [facility] Study Date: 04/13/2024 Ordering Provider: [id number] BONITA KINGSLEY MRN/PID: [id number] Fellow: Nurse: Date of /Age: 12 1935 / 88 years Field Map Editor: Karly Lin RDCS [place] Gender: M Additional Staff: [...] Cancer CPT Codes: Echo Complete w Full Doppler-76404 Study Detail: The following Echo studies were [...] 40 % LV DIASTOLIC (more content not included)...Bonita Llamas MD - 04/13/[address], [address] [place] [address] TRANSTHORACIC ECHOCARDIOGRAM REPORT Patient Name: FANI Caldwell Physician: [id number] Bonita Kingsley MD, [facility] Study Date: 04/13/2024 Ordering Provider: [id number] BONITA KINGSLEY MRN/PID: [id number] Fellow: Nurse: Date of /Age: 12 1935 / 88 years Field Map Editor: Karly Lin RDCS, T Gender: M Additional [...] Cancer CPT Codes: Echo Complete w Full Doppler-61460 Study Detail: The following Echo studies were [...] cm2 (2.5-5.5cm2) AoV Area,V (more content not included)...[facility] Work Phone: UnBucyrus Community Hospital Work Phone: Wound Cultureon [phone] Cultureleft lower leg, KD, 10-25-24, 11:30 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 Anthony's HospitalAlanine aminotransferase [Enzymatic activity/volume] in Serum or PlasmaOrdered By: Bright Lopez on 23-23-5032WWO [Catalytic activity/Vol]18 U/L7-52[facility] HospitalAlbumin [Mass/volume] in Serum or Plasma by Bromocresol green (BCG) dye binding methoOrdered By: Bright Lopez on 58-40-9858Mjycwoe BCG dye [Mass/Vol]3.8 g/dL3.5-5.7FSt. Anthony's HospitalAlkaline phosphatase [Enzymatic activity/volume] in Serum or PlasmaOrdered By: Bright Lopez on 82-73-9745HTK [Catalytic activity/Vol]108 U/GNkdp51-288HdndohhqjMercy Health Lorain HospitalAspartate aminotransferase [Enzymatic activity/volume] in Serum or PlasmaOrdered By: Bright Lopez on 14-25-7849IXA [Catalytic activity/Vol] 28 U/D33-61XbjezexahMercy Health Lorain HospitalBasophils Auto (Bld) [#/Vol]Ordered By: Bright Lopez on 49-49-4330Edlfgcdlp (Bld) [#/Vol]0.0 10*3/uL0.0-0.2 [facility] HospitalBasophils/100 WBC Auto (Bld)Ordered By: Bright Lopez on 23-44-8455Rzjyowwsw/100 WBC (Bld)1.0 %.[facility] HospitalBilirubin.total [Mass/volume] in Serum or PlasmaOrdered By: Bright Lopez on 45-02-6709Ilzrqucdy [Mass/Vol]0.8 mg/dL0.3-1.0[facility] HospitalCalcium [Mass/volume] in Serum or PlasmaOrdered By: Bright Lopez on 47-63-7596Fifyuom [Mass/Vol]9.5 mg/dL8.6-10.3FSt. Anthony's HospitalCarbon dioxide, total [Moles/volume] in Serum or Plasma Ordered By: Bright Lopez on 15-51-4454KV2 [Moles/Vol]30.6 mmol/L21.0-31.0 [facility] HospitalChloride [Moles/volume] in Serum or Plasma Ordered By: Bright Lopez on 53-47-1760Mnvpocot [Moles/Vol]105 mmol/L 98-107[facility] HospitalCholesterol [Mass/volume] in Serum or PlasmaOrdered By: Bright Lopez on 54-42-0432Abmjicutgwo [Mass/Vol]130 mg/eXWzn957-542FpqdctxsxMercy Health Lorain HospitalCholesterol in LDL Calc [Mass/Vol]Ordered By: Bright Lopez on 10-06-5486Qeqvknatumq in LDL [Mass/Vol]48 mg/dL0-100[facility] HospitalCholesterol in VLDL Calc [Mass/Vol]Ordered By: Bright Lopez on 41-71-3118Ainqufyuruk in VLDL [Mass/Vol]12 mg/dLMercy Health Lorain HospitalCreatinine [Mass/volume] in Serum or PlasmaOrdered By: Bright Lopez on 47-53-5359Tgchlgabvx [Mass/Vol]0.77 mg/dL0.70-1.30[facility] HospitalEosinophils Auto (Bld) [#/Vol]Ordered By: Bright Lopez on 92-67-9178Nxvuymhhcxb (Bld) [#/Vol]0.1 10*3/uL0.0-0.45[facility] HospitalEosinophils/100 WBC Auto (Bld)Ordered By: Bright Lopez on 43-84-9841Lzuoznhykef/100 WBC (Bld) 1.4 %.[facility] HospitalErythrocyte distribution width Auto (RBC) [Ratio]Ordered By: Bright Lopez on 07-54-1917Otdcuprepwe distribution width (RBC) [Ratio]16.2 %High12.0-14.8[facility] HospitalFolate [Mass/volume] in Serum or PlasmaOrdered By: Bright Lopez on 02-27-2024 Folate [Mass/Vol]16.9 ng/mL>5.9[facility] HospitalGlobulin Calc (S) [Mass/Vol]Ordered By: Bright Lopez on 84-36-0557Vsxiwyxg (S) [Mass/Vol]3.0 g/dLMercy Health Lorain HospitalGlucose [Mass/volume] in Serum or PlasmaOrdered By: Bright Lopez on 25-40-8660Guacacf [Mass/Vol]92 mg/gO20-278HkvnljovmMercy Health Lorain HospitalGlucose mean value [Mass/volume] in Blood Estimated from glycated hemoglobinOrdered By: Bright Lopez on 52-85-1412Rjfdeon glucose Estimated from glycated hemoglobin (Bld) [Mass/Vol]114 mg/dLMercy Health Lorain HospitalHematocrit Auto (Bld) [Volume fraction] Ordered By: Bright Lopez on 78-11-4004Mvcavqncby (Bld) [Volume fraction] 36.4 %Low38.8-50.0[facility] HospitalHemoglobin A1c percentage Ordered By: Bright Lopez on 34-70-0722OvB0y (Bld) [Mass fraction]5.6 % 4.3-5.6FSt. Anthony's HospitalHemoglobin [Mass/volume] in BloodOrdered By: Bright Lopez on 85-17-3808Iftxgsbtwz (Bld) [Mass/Vol]12.2 g/dLLow 13.0-17.0[facility] HospitalINR in Platelet poor plasma by Coagulation assayOrdered By: Bright Lopez on 94-30-7404RDR Coag (PPP) [Relative time]1.8 {INR}[facility] HospitalLeukocytes [#/volume] corrected for nucleated erythrocytes in Blood by Automated counOrdered By: Bright Lopez on 15-81-7854XHF corrected for nucl RBC Auto (Bld) [#/Vol] 4.1 10*3/uL4.1-10.5FSt. Anthony's HospitalLymphocytes Auto (Bld) [#/Vol]Ordered By: Bright Lopez on 25-14-2716Ydtxtdlufwo (Bld) [#/Vol]0.9 10*3/uLLow1.00-4.8[facility] HospitalLymphocytes/100 WBC Auto (Bld)Ordered By: Brgiht Lopez on 02-63-8267Hiqovyaafpj/100 WBC (Bld)22.7 %.St. Anthony's HospitalH Auto (RBC) [Entitic mass]Ordered By: Bright Lopez on 38-90-9176AOS (RBC) [Entitic mass]30.6 pg27.5-35.2 [facility] HospitalMCHC Auto (RBC) [Mass/Vol]Ordered By: Bright Lopez on 84-32-8488QING (RBC) [Mass/Vol]33.4 g/dL32.5-35.6FSt. Anthony's HospitalMCV Auto (RBC) [Entitic vol]Ordered By: Bright Lopez on 79-04-4956DMM (RBC) [Entitic vol]91.6 fL83.5-101[facility] HospitalMonocytes Auto (Bld) [#/Vol]Ordered By: Bright Lopez on 52-48-6637Blxjnrriz (Bld) [#/Vol]0.7 10*3/uL0.0-0.8[facility] HospitalMonocytes/100 WBC Auto (Bld)Ordered By: Bright Lopez on 02-27-2024 Monocytes/100 WBC (Bld)16.3 %.[facility] HospitalNeutrophils Auto (Bld) [#/Vol]Ordered By: Bright Lopez on 76-19-0842Mlckkcenqwt (Bld) [#/Vol]2.4 10*3/uL1.8-7.7FSt. Anthony's HospitalNeutrophils/100 WBC Auto (Bld)Ordered By: Bright Lopez on 46-62-0959Kqtqaqrpykz/100 WBC (Bld) 58.6 %.[facility] HospitalNo Panel InformationOrdered By: Bright Lopez on 02-27-2024> 60.0 mL/MinMercy Health Lorain Hospital 65.05[facility] HospitalNucleated erythrocytes [Presence] in Blood by Automated countOrdered By: Bright Lopez on 82-63-4250Vtyrfgtdn RBC Auto Ql (Bld)0.0 /100{WBC}0-0.5FSt. Anthony's HospitalPlatelet mean volume Auto (Bld) [Entitic vol]Ordered By: Bright Lopez on 02-27-2024 Platelet mean volume (Bld) [Entitic vol]8.3 fL6.6-10.1FSt. Anthony's HospitalPlatelets Auto (Bld) [#/Vol]Ordered By: Bright Lopez on 02-27-2024 Platelets (Bld) [#/Vol]144 10*3/dDPnw040-555YzpczsfpqMercy Health Lorain Hospital Potassium [Moles/volume] in Serum or PlasmaOrdered By: Bright Lopez on 53-03-0729Sqfhsvojs [Moles/Vol]4.8 mmol/L3.5-5.1FSt. Anthony's HospitalProtein [Mass/volume] in Serum or PlasmaOrdered By: Bright Lopez on 84-00-0929Srxutbs [Mass/Vol]6.8 g/dL6.4-8.9[facility] Prothrombin time (PT)Ordered By: Bright Lopez on 16-22-3332DG Coag (PPP) [Time]20.5 sHigh9.0-12.9[facility] HospitalRBC Auto (Bld) [#/Vol] Ordered By: Bright Lopez on 44-89-1174DDI (Bld) [#/Vol]3.98 10*6/uL 3.90-5.60[facility] Hospitalerum or plasma albumin/globulin mass ratioOrdered By: Bright Lopez on 17-09-4958Leickrs/Globulin [Mass ratio] 1.3 {ratio}[facility] Hospitalerum or plasma anion gap determinationOrdered By: Bright Lopez on 71-35-9615Qhqog gap [Moles/Vol] 10.2 mmol/L6.0-15.0[facility] Hospitalerum or plasma high density lipoprotein (HDL) cholesterol measurementOrdered By: Bright Lopez on 40-56-2788Byxvcukdiqg in HDL [Mass/Vol]70 mg/aU12-76TpncmyfkhAkron Children's Hospitalerum or plasma total cholesterol/high density lipoprotein (HDL) cholesterol mass ratOrdered By: Bright Lopez on 02-27-2024 Cholesterol.total/Cholesterol in HDL [Mass ratio]1.9 {ratio}<5.0[facility] Hospitalodium [Moles/volume] in Serum or PlasmaOrdered By: Bright Lopez on 46-16-3755Tobsqw [Moles/Vol]141 mmol/Y102-635AbqbmjqjuMercy Health Lorain HospitalThyrotropin [Units/volume] in Serum or PlasmaOrdered By: Bright Lopez on 17-98-0407JXF Qn1.76 m[IU]/L0.45-5.33[facility] HospitalTriglyceride [Mass/volume] in Serum or PlasmaOrdered By: Bright Lopez on 18-37-3196Xfpxaakjindj [Mass/Vol]60 mg/dL0-149[facility] HospitalTroponin I.cardiac [Mass/volume] in Serum or Plasma by Detection limit <= 0.01 ng/Ordered By: Bright Lopez on 72-86-4445Zkygfnoh I.cardiac DL <= 0.01 ng/mL [Mass/Vol]22.5 pg/mLHigh0.0-20.0[facility] HospitalUrea nitrogen [Mass/volume] in Serum or PlasmaOrdered By: Bright Lopez on 78-18-0372Akru nitrogen [Mass/Vol]15 mg/dL7-25[facility] HospitalVitamin B12 ser/plasOrdered By: Bright Lopez on 02-27-2024 Cobalamin (Vitamin B12) [Mass/Vol]390 pg/fV470-876JkszqjresMercy Health Lorain HospitalVitamin D+Metabolites [Mass/volume] in Serum or PlasmaOrdered By: Bright Lopez on 94-13-1906Spzlvkt D+Metabolites [Mass/Vol]29.3 ng/mLLow 30-100[facility] HospitalWBC Auto (Bld) [#/Vol]Ordered By: Bright Lopez on 39-01-6553SUS (Bld) [#/Vol]4.1 10*3/uL4.1-10.5FSt. Anthony's HospitalAlanine aminotransferase [Enzymatic activity/volume] in Serum or PlasmaOrdered By: Alec Bliss on 91-12-6089VBU [Catalytic activity/Vol]20 U/L7-52[facility] HospitalAlbumin [Mass/volume] in Serum or Plasma by Bromocresol green (BCG) dye binding methoOrdered By: Alec Bliss on 13-26-4812Souomwv BCG dye [Mass/Vol]3.7 g/dL3.5-5.7FSt. Anthony's HospitalAlkaline phosphatase [Enzymatic activity/volume] in Serum or PlasmaOrdered By: Alec Bliss on 57-16-6947HVD [Catalytic activity/Vol]99 U/K47-412KzkqmjdysMercy Health Lorain HospitalAspartate aminotransferase [Enzymatic activity/volume] in Serum or PlasmaOrdered By: Alec Bliss on 36-69-3798KXP [Catalytic activity/Vol]32 U/Z45-04VisqbxgimMercy Health Lorain HospitalBasophils Auto (Bld) [#/Vol]Ordered By: Alec Bliss on 90-33-6276Ogdnvugfs (Bld) [#/Vol] 0.0 10*3/uL0.0-0.2FSt. Anthony's HospitalBasophils/100 WBC Auto (Bld) Ordered By: Alec Bliss on 40-36-9424Yfbpyeped/100 WBC (Bld)0.6 %.[facility] HospitalBilirubin Test strip Ql (U)Ordered By: Alec Bliss on 75-20-0128Dwbpljfxp Ql (U)NegativeNegativeMercy Health Lorain Hospital Bilirubin.total [Mass/volume] in Serum or PlasmaOrdered By: Alec Bliss on 54-80-7989Zldgwrqsc [Mass/Vol]0.7 mg/dL0.3-1.0[facility] COVID-19 Detected/Not DetectedOrdered By: Alec Bliss on 87-57-1919YSFW-CoV-2 (COVID-19) RNA SHARRI+non-probe Ql (Nph)Not detectedNot DetectKnox Community HospitalCalcium [Mass/volume] in Serum or PlasmaOrdered By: Alec Bliss on 50-72-2561Rxxgywm [Mass/Vol]8.9 mg/dL8.6-10.3FSt. Anthony's HospitalCarbon dioxide, total [Moles/volume] in Serum or PlasmaOrdered By: Alec Bliss on 07-24-5523IU9 [Moles/Vol]25.3 mmol/L21.0-31.0[facility] HospitalChloride [Moles/volume] in Serum or PlasmaOrdered By: Alec Bliss on 92-10-6527Zsraiifl [Moles/Vol]106 mmol/N45-589YstdaiarnMercy Health Lorain HospitalColor Auto (U)Ordered By: Alec Bliss on 82-17-6085Pyynf (U) Light-yellowYellowMercy Health Lorain HospitalCreatinine [Mass/volume] in Serum or PlasmaOrdered By: Alec Bliss on 29-13-4284Bidrmszmvm [Mass/Vol]0.80 mg/dL0.70-1.30[facility] HospitalEosinophils Auto (Bld) [#/Vol] Ordered By: Alec Bliss on 57-13-2925Lhswnxrkrgr (Bld) [#/Vol]0.0 10*3/uL 0.0-0.45[facility] HospitalEosinophils/100 WBC Auto (Bld)Ordered By: Alec Bliss on 03-72-4863Sogqdbexyfh/100 WBC (Bld)0.8 %.[facility] HospitalErythrocyte distribution width Auto (RBC) [Ratio]Ordered By: Alec Bliss on 84-68-2181Qchbfyblpec distribution width (RBC) [Ratio]16.2 %High 12.0-14.8[facility] HospitalGlobulin Calc (S) [Mass/Vol]Ordered By: Alec Bliss on 95-85-3251Pqrietrl (S) [Mass/Vol]2.8 g/dLMercy Health Lorain HospitalGlucose [Mass/volume] in Serum or PlasmaOrdered By: Alec Bliss on 81-28-4953Nfahcoq [Mass/Vol]105 mg/rOBnxr33-335NbgmqthmaMercy Health Lorain HospitalGlucose [Mass/volume] in Urine by Test stripOrdered By: Alec Bliss on 07-59-5260Ycqglkl Test strip (U) [Mass/Vol]Normal mg/dLNormalMercy Health Lorain HospitalHematocrit Auto (Bld) [Volume fraction]Ordered By: Alec Bliss on 61-43-2159Fcdvszbdll (Bld) [Volume fraction]34.0 %Low38.8-50.0[facility] HospitalHemoglobin Test strip Ql (U)Ordered By: Alec Bliss on 18-67-9088Dorxnmjrve Ql (U)NegativeNegativeMercy Health Lorain Hospital Hemoglobin [Mass/volume] in BloodOrdered By: Alec Bliss on 02-26-2024 Hemoglobin (Bld) [Mass/Vol]11.5 g/dLLow13.0-17.0[facility] HospitalINR in Platelet poor plasma by Coagulation assayOrdered By: Alec Bliss on 32-53-7929HSU Coag (PPP) [Relative time]1.7 {INR}[facility] HospitalKetones Test strip Ql (U)Ordered By: Alec Bliss on 63-54-5556Ipncvlw Ql (U)NegativeNegativeMercy Health Lorain HospitalLeukocyte esterase [Presence] in Urine by Test stripOrdered By: Alec Bliss on 02-26-2024 Leukocyte esterase Test strip Ql (U)NegativeNegativeMercy Health Lorain HospitalLeukocytes [#/volume] corrected for nucleated erythrocytes in Blood by Automated counOrdered By: Alec Bliss on 88-91-6624OWL corrected for nucl RBC Auto (Bld) [#/Vol]4.7 10*3/uL4.1-10.5FSt. Anthony's Hospital Lymphocytes Auto (Bld) [#/Vol]Ordered By: Alec Bliss on 25-98-7017Hyoiyffsrbs (Bld) [#/Vol]0.5 10*3/uLLow1.00-4.8[facility] Lymphocytes/100 WBC Auto (Bld)Ordered By: Alec Bliss on 02-26-2024 Lymphocytes/100 WBC (Bld)11.1 %.[facility] Auto (RBC) [Entitic mass]Ordered By: Alec Bliss on 06-23-3984BID (RBC) [Entitic mass] 30.8 pg27.5-35.2FSelect Medical Specialty Hospital - TrumbullHC Auto (RBC) [Mass/Vol] Ordered By: Alec Bliss on 64-43-2111XUPZ (RBC) [Mass/Vol]33.9 g/dL32.5-35.6 [facility] HospitalMCV Auto (RBC) [Entitic vol]Ordered By: Alec Bliss on 93-34-7724DCU (RBC) [Entitic vol]90.8 fL83.5-101[facility] HospitalMagnesium [Mass/volume] in Serum or PlasmaOrdered By: Alec Bliss on 14-25-0420Bparwaorw [Mass/Vol]1.5 mg/dLLow1.9-2.7FSt. Anthony's HospitalMonocyte distribution width [Entitic volume] in Blood by Automated Ordered By: Alec Bliss on 19-48-9877Iaitkxih distribution width Auto (Bld) [Entitic vol]16.32 %0.00-20.00[facility] HospitalMonocytes Auto (Bld) [#/Vol]Ordered By: Alec Bliss on 52-73-4211Uhiyqbpqj (Bld) [#/Vol]0.7 10*3/uL0.0-0.8[facility] HospitalMonocytes/100 WBC Auto (Bld) Ordered By: Alec Bliss on 97-86-1068Upkdxuwrx/100 WBC (Bld)15.6 %.[facility] HospitalNatriuretic peptide B [Mass/Vol]Ordered By: Alec Bliss on 73-05-1973Xkeufeduunh peptide B (Bld) [Mass/Vol]306.0 pg/mLHigh5-100 [facility] HospitalNeutrophils Auto (Bld) [#/Vol]Ordered By: Alec Bliss on 65-57-8780Xgvatjfpetu (Bld) [#/Vol]3.4 10*3/uL1.8-7.7FSt. Anthony's HospitalNeutrophils/100 WBC Auto (Bld)Ordered By: Alec Bliss on 58-85-2800Ygdarjfvixx/100 WBC (Bld)71.9 %.[facility] Nitrite Test strip Ql (U)Ordered By: Alec Bliss on 49-68-3553Ieylkqn Ql (U) NegativeNegativeMercy Health Lorain HospitalNo Panel InformationOrdered By: Alec Bliss on 02-26-2024> 60.0 mL/MinMercy Health Lorain Hospital65.05 [facility] HospitalNucleated erythrocytes [Presence] in Blood by Automated countOrdered By: Alec Bliss on 66-90-9439Ytbkqotps RBC Auto Ql (Bld)0.1 /100{WBC}0-0.5FSt. Anthony's HospitalPlatelet mean volume Auto (Bld) [Entitic vol]Ordered By: Alec Bliss on 86-19-1397Nyqodchq mean volume (Bld) [Entitic vol]8.3 fL6.6-10.1FSt. Anthony's Hospital Platelets Auto (Bld) [#/Vol]Ordered By: Alec Bliss on 42-71-0062Ystyxkkdn (Bld) [#/Vol]138 10*3/uSRnp708-197TrylsidngMercy Health Lorain HospitalPotassium [Moles/volume] in Serum or PlasmaOrdered By: Alec Bliss on 02-26-2024 Potassium [Moles/Vol]3.8 mmol/L3.5-5.1FSt. Anthony's HospitalProtein Test strip (U) [Mass/Vol]Ordered By: Alec Bliss on 15-08-9656Otfrcaw (U) [Mass/Vol]NegativeNegativeMercy Health Lorain HospitalProtein [Mass/volume] in Serum or PlasmaOrdered By: Alec Bliss on 96-68-5550Skrsrgg [Mass/Vol]6.5 g/dL6.4-8.9[facility] HospitalProthrombin time (PT)Ordered By: Alec Bliss on 10-44-8919WV Coag (PPP) [Time]19.6 sHigh9.0-12.9[facility] HospitalRBC Auto (Bld) [#/Vol]Ordered By: Alec Bliss on 00-22-4272UOA (Bld) [#/Vol]3.74 10*6/uLLow3.90-5.60[facility] HospitalRespiratory pathogens DNA and RNA panel - Nasopharynx by SHARRI with non- probe detectionOrdered By: Alec Bliss on 23-64-9893Uxhppnuxmsh pathogens DNA and RNA panel SHARRI+non-probe (Nph)[facility] Hospitalerum or plasma albumin/globulin mass ratioOrdered By: Alec Bliss on 02-26-2024 Albumin/Globulin [Mass ratio]1.3 {ratio}[facility] Hospitalerum or plasma anion gap determinationOrdered By: Alec Bliss on 22-22-2435Oosny gap [Moles/Vol]10.5 mmol/L6.0-15.0[facility] Hospitalodium [Moles/volume] in Serum or PlasmaOrdered By: Alec Bliss on 54-85-1172Yivyhl [Moles/Vol]138 mmol/P605-494YkjvfadvmAkron Children's Hospitalpecific gravity Test strip (U) [Rel density]Ordered By: Alec Bliss on 86-77-8364Xszvbjzu gravity (U) [Rel density]1.0171.001-1.030[facility] Troponin I.cardiac [Mass/volume] in Serum or Plasma by Detection limit <= 0.01 ng/Ordered By: Alec Bliss on 77-41-3270Fzdyevva I.cardiac DL <= 0.01 ng/mL [Mass/Vol]30.9 pg/mLHigh0.0-20.0[facility] HospitalUrea nitrogen [Mass/volume] in Serum or PlasmaOrdered By: Alec Bliss on 31-19-9398Doun nitrogen [Mass/Vol]20 mg/dL7-25[facility] HospitalUrine appearance Ordered By: Alec Bliss on 32-42-8342Logyqkrutz (U)ClearCleDunlap Memorial HospitalUrobilinogen Test strip (U) [Mass/Vol]Ordered By: Alec Bliss on 09-40-2112Dzkzsrwoyunc (U) [Mass/Vol]Normal mg/dLNormalMercy Health Lorain HospitalWBC Auto (Bld) [#/Vol]Ordered By: Alec Bliss on 07-95-1658YCZ (Bld) [#/Vol]4.7 10*3/uL4.1-10.5FSt. Anthony's Hospital pH Test strip (U)Ordered By: Alec Bliss on 37-96-7836gE (U)5.0 [pH]5.0-9.0 [facility] HospitalAnisocytosis LM Ql (Bld)Ordered By: Italia Moore on 66-79-5730Pkkhmjwbozsq Ql (Bld)SlightMercy Health Lorain Hospital Basophils Auto (Bld) [#/Vol]Ordered By: Italia Moore on 61-13-7800Rvcotedhs (Bld) [#/Vol]N/[facility] HospitalBasophils/100 WBC Auto (Bld)Ordered By: Italia Moore on 71-29-8389Gusdvglwg/100 WBC (Bld)N/[facility] HospitalBasophils/100 WBC Manual cnt (Bld)Ordered By: Italia Moore on 84-65-4208Lnaclyrem/100 WBC (Bld)1 %0-2FSt. Anthony's HospitalCalcium [Mass/volume] in Serum or PlasmaOrdered By: Italia Moore on 81-69-4994Psguphm [Mass/Vol]8.8 mg/dL8.6-10.3FSt. Anthony's HospitalCarbon dioxide, total [Moles/volume] in Serum or PlasmaOrdered By: Italia Moore on 42-40-0173HK3 [Moles/Vol]30.6 mmol/L21.0-31.0[facility] HospitalChloride [Moles/volume] in Serum or PlasmaOrdered By: Italia Moore on 13-43-8967Ogpodmga [Moles/Vol]106 mmol/W40-416PoywptnuiMercy Health Lorain HospitalCholesterol [Mass/volume] in Serum or PlasmaOrdered By: Italia Moore on 35-79-9200Kewhiayptul [Mass/Vol]122 mg/eJDpa375-484QloqrhhjmMercy Health Lorain HospitalComment on above: Chol less than 200 mg/dl low riskChol 201-239 mg/dl borderline riskChol 240 mg/dl and greater high riskCholesterol in LDL Calc [Mass/Vol]Ordered By: Italia Moore on 93-43-2686Irxpcsjqihw in LDL [Mass/Vol]41 mg/dL0-100Mer[facility] HospitalComment on above:LDL ATP III CLASSIFICATIONLDL less than 100 mg/dL OptimalLDL 100-129 mg/dL Near or above pamokcdHXB076-025 mg/dL Borderline highLDL 160-189 mg/dL HighLDL greater than 189 mg/dL Very highCholesterol in VLDL Calc [Mass/Vol]Ordered By: Italia Moore on 76-57-9795Bjiiptvunor in VLDL [Mass/Vol]10 mg/dLMercy Health Lorain HospitalCreatinine [Mass/volume] in Serum or PlasmaOrdered By: Italia Moore on 88-56-7048Lunoqpfvpv [Mass/Vol]0.80 mg/dL0.70-1.30[facility] HospitalEosinophils Auto (Bld) [#/Vol] Ordered By: Italia Moore on 11-53-9707Ezenefgofxc (Bld) [#/Vol]N/AFSt. Anthony's HospitalEosinophils/100 WBC Auto (Bld)Ordered By: Italia Moore on 53-33-1897Ipurgivthtn/100 WBC (Bld)N/AFSt. Anthony's Hospital Eosinophils/100 WBC Manual cnt (Bld)Ordered By: Italia Moore on 01-22-2024 Eosinophils/100 WBC (Bld)1 %1-3FSt. Anthony's HospitalErythrocyte distribution width Auto (RBC) [Ratio]Ordered By: Italia Moore on 01-22-2024 Erythrocyte distribution width (RBC) [Ratio]16.8 %High12.0-14.8[facility] HospitalGiant platelets/100 leukocytes [Ratio] in Blood by Manual countOrdered By: Italia Moore on 90-13-9221Ioxnh platelets/100 WBC Manual cnt (Bld) [Ratio]1 /100{WBC}[facility] HospitalGlucose [Mass/volume] in Serum or PlasmaOrdered By: Italia Moore on 84-40-6908Ephhoyc [Mass/Vol]87 mg/xZ53-814IsqmiffegMercy Health Lorain HospitalComment on above:ADA recommended reference rangeRandom Glucose Reference Range is dependent on time and content of last meal. Glucose of more than 200 mg/dL in a nonstressed, ambulatory subject supports the diagnosisof Diabetes Mellitus.Hematocrit Auto (Bld) [Volume fraction]Ordered By: Italia Moore on 76-17-0162Xzimueodzm (Bld) [Volume fraction]34.9 %Low38.8-50.0[facility] HospitalHemoglobin [Mass/volume] in BloodOrdered By: Italia Moore on 28-18-5605Yuhfacrfiw (Bld) [Mass/Vol]11.6 g/dLLow13.0-17.0[facility] HospitalINR in Platelet poor plasma by Coagulation assayOrdered By: Italia Moore on 79-98-0139HEO Coag (PPP) [Relative time]2.2 {INR}[facility] HospitalComment on above: INR Therapeutic Range A) Pre- and Peroperative OAT started two weeks before surgery. NOT HIP SURGERY: 1.5 - 2.5 HIP SURGERY: 2 - 3B) Primary and secondary prevention of venous THROMBOSIS: 2 - 3C) Active venous thrombosis, pulmonary embolismand prevention of recurrent venous thrombosis: 2 - 3D) Prevention of arterial thromboembolismincluding patients with mechanical heart valves: 3 - 4.5 Leukocytes [#/volume] corrected for nucleated erythrocytes in Blood by Automated counOrdered By: Italia Moore on 11-46-5800LED corrected for nucl RBC Auto (Bld) [#/Vol]5.0 10*3/uL4.1-10.5FSt. Anthony's HospitalLymphocytes Auto (Bld) [#/Vol]Ordered By: Italia Moore on 66-81-3669Mlvjprwhbvf (Bld) [#/Vol]N/A [facility] HospitalLymphocytes/100 WBC Auto (Bld)Ordered By: Italia Moore on 83-04-9217Gxjitxtoatb/100 WBC (Bld)N/[facility] HospitalLymphocytes/100 WBC Manual cnt (Bld)Ordered By: Italia Moore on 01-22-2024 Lymphocytes/100 WBC (Bld)22 %18-42St. [facility]'s HospitalH Auto (RBC) [Entitic mass]Ordered By: Italia Moore on 72-31-9905ATH (RBC) [Entitic mass]30.1 pg27.5-35.2FSt. Anthony's HospitalMCHC Auto (RBC) [Mass/Vol] Ordered By: Italia Moore on 88-09-9576FOWV (RBC) [Mass/Vol]33.2 g/dL32.5-35.6 [facility] HospitalMCV Auto (RBC) [Entitic vol]Ordered By: Italia Moore on 77-79-3828ZDU (RBC) [Entitic vol]90.9 fL83.5-101[facility] HospitalMicrocytes LM Ql (Bld)Ordered By: Italia Moore on 01-22-2024 Microcytes Ql (Bld)SlightMercy Health Lorain HospitalMonocytes Auto (Bld) [#/Vol]Ordered By: Italia Moore on 99-90-4872Kmlvdlsrv (Bld) [#/Vol]N/[facility] HospitalMonocytes/100 WBC Auto (Bld)Ordered By: Italia Moore on 56-85-4023Oukkarseg/100 WBC (Bld)N/[facility] Monocytes/100 WBC Manual cnt (Bld)Ordered By: Italia Moore on 01-22-2024 Monocytes/100 WBC (Bld)12 %[facility]2-11[facility] Myelocytes/100 WBC Manual cnt (Bld)Ordered By: Italia Moore on 01-22-2024 Myelocytes/100 WBC (Bld)3 %High0-0[facility] HospitalNeutrophils Auto (Bld) [#/Vol]Ordered By: Italia Moore on 84-52-5348Vfnoifonjwl (Bld) [#/Vol] N/[facility] HospitalNeutrophils/100 WBC Auto (Bld)Ordered By: Italia Moore on 93-86-4452Ociaqkkappo/100 WBC (Bld)N/[facility] HospitalNo Panel InformationOrdered By: Italia Moore on 84-51-8552Fsaybyshx GFR (CKD-EPI)> 60.0 mL/MinMercy Health Lorain HospitalPharmacy Creatinine Clearance (Chem[address] [place] [address]> 60.0 mL/MinMercy Health Lorain Hospital[address] [place], [place] [address]Nucleated erythrocytes [Presence] in Blood by Automated countOrdered By: Italia Moore on 96-69-2408Bbyemwehs RBC Auto Ql (Bld)N/[facility] Platelet adequacy [Presence] in Blood by Light microscopyOrdered By: Italia Moore on 51-41-6053Bvrnamihx LM Ql (Bld)DecreasedNoToledo HospitalPlatelet mean volume Auto (Bld) [Entitic vol]Ordered By: Italia Moore on 05-44-5341Stergwrg mean volume (Bld) [Entitic vol]8.5 fL6.6-10.1FSt. Anthony's HospitalPlatelet morphology finding [Identifier] in BloodOrdered By: Italia Moore on 78-89-7736Mzcnssxf morphology finding Nom (Bld)NormalNoLima Memorial HospitalPlatelets Auto (Bld) [#/Vol]Ordered By: Iatlia Moore on 31-78-8124Qkgcixdja (Bld) [#/Vol]115 10*3/rJQfx531-155YkborqrmwMercy Health Lorain HospitalComment on above:Delta: 141 on 01/20/24-1514Potassium [Moles/volume] in Serum or PlasmaOrdered By: Italia Moore on 03-81-8658Neqqwnulq [Moles/Vol]4.1 mmol/L3.5-5.1FSt. Anthony's HospitalProthrombin time (PT)Ordered By: Italia Moore on 67-99-3812LI Coag (PPP) [Time]24.8 sHigh9.0-12.9 [facility] HospitalComment on above:A hematocrit value greater than 55% may lead to inaccurate results in coagulation testing. Patientshaving hematocrit values >55% require a special collection tube for coagulation studies. Please contact the laboratory at [phone] for redraw instructions. RBC Auto (Bld) [#/Vol]Ordered By: Italia Moore on 38-25-1807OGM (Bld) [#/Vol]3.84 10*6/uLLow3.90-5.60[facility] HospitalRBC morphologyOrdered By: Italia Moore on 75-72-6208HIE morphology finding Nom (Bld)N/AFOhioHealth Dublin Methodist Hospitalegmented neutrophils/100 WBC Manual cnt (Bld)Ordered By: Italia Moore on 70-38-8994Gwxeuhbrv neutrophils/100 WBC (Bld)62 %50-70[facility] Hospitalerum or plasma anion gap determinationOrdered By: Italia Moore on 95-77-2821Okgah gap [Moles/Vol]8.5 mmol/L6.0-15.0[facility] Hospitalerum or plasma high density lipoprotein (HDL) cholesterol measurementOrdered By: Italia Moore on 90-91-7235Lhtofodzqfr in HDL [Mass/Vol]71 mg/xY01-77LgsgyhsxhMercy Health Lorain HospitalComment on above:HDL CHOL ATP-III CLASSIFICATION Cardiovascular RiskHDL > or equal to 60 mg/dL LOWHDL < 40 mg/dL HIGHSerum or plasma total cholesterol/high density lipoprotein (HDL) cholesterol mass ratOrdered By: Italia Moore on 82-13-7051Qscxtwsyuug.total/Cholesterol in HDL [Mass ratio]1.7 {ratio}<5.0[facility] Hospitalodium [Moles/volume] in Serum or PlasmaOrdered By: Italia Moore on 93-06-1164Strwdd [Moles/Vol]141 mmol/M800-506OfghgxyifMercy Health Lorain HospitalTriglyceride [Mass/volume] in Serum or PlasmaOrdered By: Italia Moore on 01-22-2024 Triglyceride [Mass/Vol]51 mg/dL0-149[facility] HospitalComment on above:TRIG ATP III CLASSIFICATIONTRIG less than 150 mg/dL NormalTRIG 150-199 mg/dL Borderline highTRIG 200-500 mg/dL High TRIG greater than 500 mg/dL Very highStandard traceable to the Center for Disease Conrtrol and Prevention (CDC) test method.Urea nitrogen [Mass/volume] in Serum or PlasmaOrdered By: Italia Moore on 51-27-4412Gwoq nitrogen [Mass/Vol]19 mg/dL7-25[facility] HospitalWBC Auto (Bld) [#/Vol]Ordered By: Italia Moore on 04-83-1826JNP (Bld) [#/Vol]5.0 10*3/uL4.1-10.5FSt. Anthony's HospitalAnisocytosis LM Ql (Bld)Ordered By: Mick Putnam on 11-57-3016Njbadwanoztg Ql (Bld)[facility] HospitalBasophils Auto (Bld) [#/Vol]Ordered By: Mick Putnam on 60-13-0514Nemnvztzt (Bld) [#/Vol]N/[facility] HospitalBasophils/100 WBC Auto (Bld)Ordered By: Mick Putnam on 01-21-2024 Basophils/100 WBC (Bld)N/[facility] HospitalCalcium [Mass/volume] in Serum or PlasmaOrdered By: Mick Putnam on 17-29-2618Ncabcdx [Mass/Vol]9.0 mg/dL8.6-10.3FSt. Anthony's HospitalCarbon dioxide, total [Moles/volume] in Serum or PlasmaOrdered By: Mick Putnam on 83-37-6573IO1 [Moles/Vol]25.8 mmol/L21.0-31.0[facility] Chloride [Moles/volume] in Serum or PlasmaOrdered By: Mick Putnam on 69-14-8009Wovfiiib [Moles/Vol]104 mmol/E27-439PaelwnxouMercy Health Lorain Hospital Creatinine [Mass/volume] in Serum or PlasmaOrdered By: Mick Putnam on 25-36-2196Fxigtdbfju [Mass/Vol]0.88 mg/dL0.70-1.30[facility] HospitalEosinophils Auto (Bld) [#/Vol]Ordered By: Mick Putnam on 01-21-2024 Eosinophils (Bld) [#/Vol]N/[facility] HospitalEosinophils/100 WBC Auto (Bld)Ordered By: Mick Putnam on 85-03-4301Bqxnquzsywn/100 WBC (Bld) N/[facility] HospitalEosinophils/100 WBC Manual cnt (Bld)Ordered By: Mick Putnam on 07-27-3777Qhgfvctexbu/100 WBC (Bld)2 %[address] [place], [place] [address]Erythrocyte distribution width Auto (RBC) [Ratio]Ordered By: Mick Putnam on 85-66-3897Pptzeakxwii distribution width (RBC) [Ratio] 16.7 %High12.0-14.8[facility] HospitalGlucose Glucometer (BldC) [Mass/Vol]Ordered By: Mick Putnam on 90-34-1997Mmombyg [Mass/Vol]107 mg/dLMercy Health Lorain HospitalComment on above:Random Glucose Reference Range is dependent on time and content of last meal. Glucose of more than 200 mg/dL in a nonstressed, ambulatory subject supports the diagnosis of Diabetes Mellitus.Glucose [Mass/volume] in Serum or PlasmaOrdered By: Mick Putnam on 89-63-4775Qefvfxe [Mass/Vol]107 mg/vXPnsg36-289TdvvyzcnxMercy Health Lorain HospitalComment on above:ADA recommended reference rangeRandom Glucose Reference Range is dependent on time and content of last meal. Glucose of more than 200 mg/dL in a nonstressed, ambulatory subject supports the diagnosisof Diabetes Mellitus.Hematocrit Auto (Bld) [Volume fraction]Ordered By: Mick Putnam on 76-25-9189Mduxnsmoav (Bld) [Volume fraction]37.4 %Low38.8-50.0[facility] HospitalHemoglobin [Mass/volume] in BloodOrdered By: Mick Putnam on 64-91-3455Losordpnuh (Bld) [Mass/Vol]12.3 g/dLLow13.0-17.0 [facility] HospitalINR in Platelet poor plasma by Coagulation assayOrdered By: Mick Putnam on 01-09-2774DPI Coag (PPP) [Relative time] 2.5 {INR}[facility] HospitalComment on above:INR Therapeutic Range A) Pre- and Peroperative OAT started two weeks before surgery. NOT HIP SURGERY: 1.5 - 2.5 HIP SURGERY: 2 - 3B) Primary and secondary prevention of venous THROMBOSIS: 2 - 3C) Active venous thrombosis, pulmonary embolismand prevention of recurrent venous thrombosis: 2 - 3D) Prevention of arterial thromboembolismincluding patients with mechanical heart valves: 3 - 4.5 Leukocytes [#/volume] corrected for nucleated erythrocytes in Blood by Automated counOrdered By: Mick Putnam on 72-27-6034KIS corrected for nucl RBC Auto (Bld) [#/Vol]7.3 10*3/uL4.1-10.5FSt. Anthony's HospitalLymphocytes Auto (Bld) [#/Vol]Ordered By: Mick Putnam on 50-61-0111Gyxbackigbo (Bld) [#/Vol]N/[facility] HospitalLymphocytes/100 WBC Auto (Bld)Ordered By: Mick Putnam on 55-54-6795Scysrbjblyt/100 WBC (Bld)N/[facility] HospitalLymphocytes/100 WBC Manual cnt (Bld)Ordered By: Mick Putnam on 05-80-8920Viykxuwhckf/100 WBC (Bld)20 %18-42[facility] HospitalMCH Auto (RBC) [Entitic mass]Ordered By: Mick Putnam on 79-38-1202DFY (RBC) [Entitic mass]30.1 pg27.5-35.2FSt. Anthony's HospitalMCHC Auto (RBC) [Mass/Vol]Ordered By: Mick Putnam on 34-50-0933KGRR (RBC) [Mass/Vol]33.0 g/dL32.5-35.6FSt. Anthony's HospitalMCV Auto (RBC) [Entitic vol]Ordered By: Mick Putnam on 09-62-5445TAZ (RBC) [Entitic vol]91.2 fL83.5-101[facility] HospitalMonocyte distribution width [Entitic volume] in Blood by AutomatedOrdered By: Mick Putnam on 87-99-0616Vmcgmwjs distribution width Auto (Bld) [Entitic vol] 17.72 %0.00-20.00[facility] HospitalMonocytes Auto (Bld) [#/Vol] Ordered By: Mick Putnma on 49-91-9680Qedpcypcy (Bld) [#/Vol]N/[facility] HospitalMonocytes/100 WBC Auto (Bld)Ordered By: Mick Putnam on 38-57-4786Dkzrksstx/100 WBC (Bld)N/[facility] HospitalMonocytes/100 WBC Manual cnt (Bld)Ordered By: Mick Putnam on 44-13-9175Ziiqqogki/100 WBC (Bld)10 %2-11[facility] Myelocytes/100 WBC Manual cnt (Bld)Ordered By: Mick Putnam on 01-21-2024 Myelocytes/100 WBC (Bld)3 %High0-0[facility] HospitalNeutrophils Auto (Bld) [#/Vol]Ordered By: Mick Putnam on 47-71-8585Vkxpmyayegx (Bld) [#/Vol]N/[facility] HospitalNeutrophils/100 WBC Auto (Bld)Ordered By: Mick Putnam on 66-61-5000Ntjjqtbrccd/100 WBC (Bld)N/[facility] HospitalNo Panel InformationOrdered By: Mick Putnam on 30-66-2102Leqmmwpic GFR (CKD-EPI)> 60.0 mL/MinMercy Health Lorain Hospital Pharmacy Creatinine Clearance (Chem61.06[facility] Nucleated erythrocytes [Presence] in Blood by Automated countOrdered By: Mick Putnam on 98-58-7354Rozswjqve RBC Auto Ql (Bld)N/AFSt. Anthony's HospitalOvalocyte detectionOrdered By: Mick Putnam on 01-21-2024 Ovalocytes LM Ql (Bld)[facility] HospitalPlatelet adequacy [Presence] in Blood by Light microscopyOrdered By: Mick Putnam on 11-80-7629Veabzasfp LM Ql (Bld)DecreasedNormalMercy Health Lorain Hospital Platelet mean volume Auto (Bld) [Entitic vol]Ordered By: Mick Putnam on 37-57-3474Vlypxpig mean volume (Bld) [Entitic vol]8.7 fL6.6-10.1FSt. Anthony's HospitalPlatelet morphology finding [Identifier] in BloodOrdered By: Mick Putnam on 62-98-4717Zmjdassx morphology finding Nom (Bld)Normal NormalMercy Health Lorain HospitalPlatelets Auto (Bld) [#/Vol]Ordered By: Mick Putnam on 25-68-3549Fgljnwllf (Bld) [#/Vol]141 10*3/jLZgl081-227 [facility] HospitalPoikilocytosis [Presence] in Blood by Light microscopyOrdered By: Mick Putnam on 10-00-2797Qxvahnzxpkdwqj LM Ql (Bld) [facility] HospitalPotassium [Moles/volume] in Serum or PlasmaOrdered By: Mick Putnam on 32-03-2377Nrmftpfke [Moles/Vol]4.1 mmol/L3.5-5.1FSt. Anthony's HospitalProthrombin time (PT)Ordered By: Mick Putnam on 54-11-8821SU Coag (PPP) [Time]28.2 sHigh9.0-12.9[facility] HospitalComment on above:A hematocrit value greater than 55% may lead to inaccurate results in coagulation testing. Patientshaving hematocrit values >55% require a special collection tube for coagulation studies. Please c ontact the laboratory at [phone] for redraw instructions.RBC Auto (Bld) [#/Vol]Ordered By: Mick Putnam on 42-89-4595NUT (Bld) [#/Vol]4.10 10*6/uL 3.90-5.60[facility] HospitalRBC morphologyOrdered By: Mick Putnam on 18-00-0562XVN morphology finding Nom (Bld)N/AFOhioHealth Dublin Methodist Hospitalegmented neutrophils/100 WBC Manual cnt (Bld)Ordered By: Mick Putnam on 51-69-6122Tabwarbyy neutrophils/100 WBC (Bld)66 %50-70[facility] Hospitalerum or plasma anion gap determinationOrdered By: Mick Putnam on 10-53-8895Mtoni gap [Moles/Vol]10.3 mmol/L6.0-15.0[facility] Hospitalodium [Moles/volume] in Serum or PlasmaOrdered By: Mick Putnam on 07-92-3466Ccltth [Moles/Vol]136 mmol/D390-224VhhhspyfnMercy Health Lorain HospitalTroponin I.cardiac [Mass/volume] in Serum or Plasma by Detection limit <= 0.01 ng/Ordered By: Mick Putnam on 33-36-2978Qnhtdihj I.cardiac DL <= 0.01 ng/mL [Mass/Vol]14.8 pg/mL0.0-20.0[facility] HospitalUrea nitrogen [Mass/volume] in Serum or PlasmaOrdered By: Mick Putnam on 97-97-5810Bipi nitrogen [Mass/Vol]23 mg/dL7-25[facility] HospitalWBC Auto (Bld) [#/Vol]Ordered By: Mick Putnam on 01-21-2024 WBC (Bld) [#/Vol]7.3 10*3/uL4.1-10.5FSt. Anthony's HospitalINR in Platelet poor plasma by Coagulation assayOrdered By: Henry Clark on 12-29-2023 INR Coag (PPP) [Relative time]1.9 {INR}[facility] HospitalComment on above:INR Therapeutic Range A) Pre- and Peroperative OAT started two weeks before surgery. NOT HIP SURGERY: 1.5 - 2.5 HIP SURGERY: 2 - 3B) Primary and secondary prevention of venous THROMBOSIS: 2 - 3C) Active venous thrombosis, pulmonary embolismand prevention of recurrent venous thrombosis: 2 - 3D) Preve ntion of arterial thromboembolismincluding patients with mechanical heart valves: 3 - 4.5Prothrombin time (PT)Ordered By: Henry Clark on 01-57-3735PS Coag (PPP) [Time]21.9 sHigh9.0-12.9[facility] HospitalComment on above:A hematocrit value greater than 55% may lead to inaccurate results in coagulation testing. Patientshaving hematocrit values >55% require a special collection tube for coagulation studies. Please contact the laboratory at [phone] for redraw instructions.COVID-19 Positive/NegativeOrdered By: Henry Clark on 64-22-2814JMXC-CoV-2 (COVID-19) N gene SHARRI+probe Ql (Resp) NegativeNegativeMercy Health Lorain HospitalComment on above:Testing for SARS-CoV-2 by RT-PCRThis test was developed and its performance characteristics determined by [employer] ([employer]) and validated at the [facility]. This test has not been FDA cleared or approved. This test has been authorized by FDA under an Emergency Use Authorization (EUA). This test has been validated in accordance with the FDA's Guidance Document (Policy for Diagnostics Testing in Laboratories Certified to Perform High Complexity Testing under CLIA prior to Emergency Use Authorization for Coronavirus Disease- 2019 during the Public Health Emergency) issued on September 15, 2019. This test is only authorized for the duration of time the declaration that circumstances exist justifying the authorization of the emergency use of in vitro diagnostic tests for detection of SARS-CoV-2 virus and/or diagnosis of COVID-19 infection under section 564(b)(1) of the Act, 21 U.S.C. 360bbb-3(b)(1), unless the authorization is terminated or revoked sooner.Laboratory - Microbiology and Antimicrobial susceptibilityOrdered By: Henry Clark on 42-00-2631HAUU-CoV-2 (COVID-19) RNA SHARRI+probe Ql (Unsp spec)N/[facility] HospitalNo Panel InformationOrdered By: Henry Clark on 12-26-2023N/AFSt. Anthony's HospitalAlanine aminotransferase [Enzymatic activity/volume] in Serum or PlasmaOrdered By: Henry Clark on 25-16-1028FHV [Catalytic activity/Vol]23 U/L 7-52[facility] HospitalAlbumin [Mass/volume] in Serum or Plasma by Bromocresol green (BCG) dye binding methoOrdered By: Henry Clark on 12-24-2023 Albumin BCG dye [Mass/Vol]3.4 g/dLLow3.5-5.7FSt. Anthony's Hospital Alkaline phosphatase [Enzymatic activity/volume] in Serum or PlasmaOrdered By: Henry Clark on 78-92-0807HSA [Catalytic activity/Vol]83 U/G01-817UnpugrdygMercy Health Lorain HospitalAspartate aminotransferase [Enzymatic activity/volume] in Serum or PlasmaOrdered By: Henry Clark on 75-12-8935RSD [Catalytic activity/Vol]25 U/V02-35GlwvjnimxMercy Health Lorain HospitalBasophils Auto (Bld) [#/Vol]Ordered By: Henry Clark on 42-50-5653Xsdlprnzi (Bld) [#/Vol]0.0 10*3/uL 0.0-0.2FSt. Anthony's HospitalBasophils/100 WBC Auto (Bld)Ordered By: Henry Clark on 79-95-9481Iuqcvfnfg/100 WBC (Bld)0.5 %.[facility] HospitalBilirubin.total [Mass/volume] in Serum or PlasmaOrdered By: Henry Clark on 49-74-3598Cgjbbmjkh [Mass/Vol]1.0 mg/dL0.3-1.0[facility] HospitalCalcium [Mass/volume] in Serum or PlasmaOrdered By: Henry Clark on 07-20-1632Yifdouy [Mass/Vol]8.5 mg/dLLow8.6-10.3FSt. Anthony's HospitalCarbon dioxide, total [Moles/volume] in Serum or PlasmaOrdered By: Henry Clark on 49-76-9984HQ9 [Moles/Vol]25.3 mmol/L21.0-31.0[facility] HospitalChloride [Moles/volume] in Serum or PlasmaOrdered By: Henry Clark on 18-68-3131Oabbilyt [Moles/Vol]102 mmol/P12-184TnxogqihyMercy Health Lorain Hospital Creatinine [Mass/volume] in Serum or PlasmaOrdered By: Henry Clark on 78-92-1485Jlbrrcqras [Mass/Vol]0.87 mg/dL0.70-1.30[facility] HospitalEosinophils Auto (Bld) [#/Vol]Ordered By: Henry Clark on 12-24-2023 Eosinophils (Bld) [#/Vol]0.2 10*3/uL0.0-0.45[facility] Eosinophils/100 WBC Auto (Bld)Ordered By: Henry Clark on 12-24-2023 Eosinophils/100 WBC (Bld)2.6 %.[facility] HospitalErythrocyte distribution width Auto (RBC) [Ratio]Ordered By: Henry Clark on 12-24-2023 Erythrocyte distribution width (RBC) [Ratio]15.1 %High12.0-14.8[facility] HospitalGlobulin Calc (S) [Mass/Vol]Ordered By: Henry Clark on 30-82-1156Qmhnvcrs (S) [Mass/Vol]2.7 g/dLMercy Health Lorain Hospital Glucose [Mass/volume] in Serum or PlasmaOrdered By: Henry Clark on 12-24-2023 Glucose [Mass/Vol]94 mg/vT31-010XerkvprgpMercy Health Lorain HospitalComment on above:ADA recommended reference rangeRandom Glucose Reference Range is dependent on time and content of last meal. Glucose of more than 200 mg/dL in a nonstressed, ambulatory subject supports the diagnosisof Diabetes Mellitus. Hematocrit Auto (Bld) [Volume fraction]Ordered By: Henry Clark on 12-24-2023 Hematocrit (Bld) [Volume fraction]37.2 %Low38.8-50.0[facility] HospitalHemoglobin [Mass/volume] in BloodOrdered By: Henry Clark on 12-24-2023 Hemoglobin (Bld) [Mass/Vol]12.7 g/dLLow13.0-17.0[facility] HospitalLeukocytes [#/volume] corrected for nucleated erythrocytes in Blood by Automated counOrdered By: Henry Clark on 82-58-0181WTL corrected for nucl RBC Auto (Bld) [#/Vol]6.5 10*3/uL4.1-10.5FSt. Anthony's Hospital Lymphocytes Auto (Bld) [#/Vol]Ordered By: Henry Clark on 26-29-9937Mzlwyucfbun (Bld) [#/Vol]1.0 10*3/uL1.00-4.8[facility] HospitalLymphocytes/100 WBC Auto (Bld)Ordered By: Henry Clark on 13-88-8286Rtnmtjvmjfe/100 WBC (Bld) 15.2 %.St. [facility]'s HospitalH Auto (RBC) [Entitic mass]Ordered By: Henry Clark on 80-77-9360IMT (RBC) [Entitic mass]30.2 pg27.5-35.2FSt. Anthony's HospitalMCHC Auto (RBC) [Mass/Vol]Ordered By: Henry Clark on 13-49-0916QPPD (RBC) [Mass/Vol]34.0 g/dL32.5-35.6FSt. Anthony's HospitalMCV Auto (RBC) [Entitic vol]Ordered By: Henry Clark on 00-86-9582TMU (RBC) [Entitic vol]88.8 fL83.5-101[facility] HospitalMonocytes Auto (Bld) [#/Vol]Ordered By: Henry Clark on 87-08-8190Bhbkgliws (Bld) [#/Vol] 1.0 10*3/uLHigh0.0-0.8[facility] HospitalMonocytes/100 WBC Auto (Bld)Ordered By: Henry Clark on 50-11-1086Lukvbpwaq/100 WBC (Bld)14.8 %. [facility] HospitalNeutrophils Auto (Bld) [#/Vol]Ordered By: Henry Clark on 89-86-3446Shcrxuqobok (Bld) [#/Vol]4.4 10*3/uL1.8-7.7FSt. Anthony's HospitalNeutrophils/100 WBC Auto (Bld)Ordered By: Henry Clark on 86-43-2807Tbcvvabswhq/100 WBC (Bld)66.9 %.[facility] HospitalNo Panel InformationOrdered By: Henry Clark on 81-33-1760Titnrglxo GFR (CKD-EPI)> 60.0 mL/MinMercy Health Lorain HospitalPharmacy Creatinine Clearance (Chem 59.23[facility]> 60.0 mL/MinMercy Health Lorain Hospital59.23[facility] HospitalNucleated erythrocytes [Presence] in Blood by Automated countOrdered By: Henry Clark on 20-56-1696Nlnzmnvwx RBC Auto Ql (Bld)0.2 /100{WBC}0-0.5FSt. Anthony's HospitalPlatelet mean volume Auto (Bld) [Entitic vol]Ordered By: Henry Clark on 61-84-1883Windmqpp mean volume (Bld) [Entitic vol]8.5 fL6.6-10.1FSt. Anthony's Hospital Platelets Auto (Bld) [#/Vol]Ordered By: Henry Clark on 57-60-5582Oisfrjpvl (Bld) [#/Vol]132 10*3/zCWjc807-138GzqnvlviyMercy Health Lorain HospitalPotassium [Moles/volume] in Serum or PlasmaOrdered By: Henry Clrak on 16-66-0794Xknunvjlt [Moles/Vol]4.4 mmol/L3.5-5.1FSt. Anthony's HospitalPrealbumin [Mass/volume] in Serum or PlasmaOrdered By: Henry Clark on 17-48-0963Bsixyxrgds [Mass/Vol]10.2 mg/dLLow17.0-34.0[facility] HospitalProtein [Mass/volume] in Serum or PlasmaOrdered By: Henry Clark on 63-12-8813Cyaakfo [Mass/Vol]6.1 g/dLLow6.4-8.9[facility] HospitalRBC Auto (Bld) [#/Vol]Ordered By: Henry Clark on 27-84-7768DYN (Bld) [#/Vol]4.19 10*6/uL 3.90-5.60[facility] Hospitalerum or plasma albumin/globulin mass ratioOrdered By: Henry Clark on 63-00-9349Rdbuwwr/Globulin [Mass ratio]1.3 {ratio}[facility] Hospitalerum or plasma anion gap determination Ordered By: Henry Clark on 34-98-5518Znknt gap [Moles/Vol]14.1 mmol/L6.0-15.0 [facility] Hospitalodium [Moles/volume] in Serum or PlasmaOrdered By: Henry Clark on 96-24-3375Ydwvjt [Moles/Vol]137 mmol/P284-978NqnxzdriiMercy Health Lorain HospitalUrea nitrogen [Mass/volume] in Serum or PlasmaOrdered By: Henry Clark on 19-73-0745Iumo nitrogen [Mass/Vol]30 mg/dLHigh7-25[facility] HospitalWBC Auto (Bld) [#/Vol]Ordered By: Henry Clark on 65-52-7164LWY (Bld) [#/Vol]6.5 10*3/uL4.1-10.5FSt. Anthony's Hospital INR in Platelet poor plasma by Coagulation assayOrdered By: Hilario Skelton on 90-29-5409VZE Coag (PPP) [Relative time]1.3 {INR}[facility] HospitalComment on above:INR Therapeutic Range A) Pre- and Peroperative OAT started two weeks before surgery. NOT HIP SURGERY: 1.5 - 2.5 HIP SURGERY: 2 - 3B) Primary and secondary prevention of venous THROMBOSIS: 2 - 3C) Active venous thrombosis, pulmonary embolismand prevention of recurrent venous thrombosis: 2 - 3D) Prevention of arterial thromboembolismincluding patients with mechanical heart valves: 3 - 4.5Prothrombin time (PT)Ordered By: Hilario Skelton on 55-38-3081UU Coag (PPP) [Time]15.2 sHigh9.0-12.9[facility] HospitalComment on above:A hematocrit value greater than 55% may lead to inaccurate results in coagulation testing. Patientshaving hematocrit values >55% require a special collection tube for coagulation studies. Please contact the laboratory at [phone] for redraw instructions.Basophils Auto (Bld) [#/Vol] Ordered By: Ashley Merritt on 72-54-2982Wpeynmllg (Bld) [#/Vol]0.0 10*3/uL 0.0-0.2FSt. Anthony's HospitalBasophils/100 WBC Auto (Bld)Ordered By: Ashley Merritt on 70-98-6680Xcsvogezg/100 WBC (Bld)0.5 %.[facility] HospitalCalcium [Mass/volume] in Serum or PlasmaOrdered By: Ashley Merritt on 33-14-5868Obeyvnm [Mass/Vol]9.1 mg/dL8.6-10.3FSt. Anthony's HospitalCarbon dioxide, total [Moles/volume] in Serum or PlasmaOrdered By: Ashley Merritt on 09-50-2398SP2 [Moles/Vol]26.6 mmol/L21.0-31.0[facility] HospitalChloride [Moles/volume] in Serum or PlasmaOrdered By: Ashley Merritt on 55-26-2928Tzccfcik [Moles/Vol]102 mmol/P46-419MaqkxmyraMercy Health Lorain HospitalCreatinine [Mass/volume] in Serum or PlasmaOrdered By: Ashley Merritt on 20-78-2259Zloutpqyyc [Mass/Vol]0.89 mg/dL0.70-1.30[facility] HospitalEosinophils Auto (Bld) [#/Vol]Ordered By: Ashley Merritt on 60-50-0743Wvxoytqtbjf (Bld) [#/Vol]0.1 10*3/uL0.0-0.45[facility] HospitalEosinophils/100 WBC Auto (Bld)Ordered By: Ashley Merritt on 28-03-3951Qocloxbmkud/100 WBC (Bld)0.8 %.[facility] Erythrocyte distribution width Auto (RBC) [Ratio]Ordered By: Ashley Merritt on 46-92-4884Fcczgkyclnl distribution width (RBC) [Ratio]15.5 %High12.0-14.8 [facility] HospitalGlucose [Mass/volume] in Serum or PlasmaOrdered By: Ashley Merritt on 33-82-2297Nnadkwx [Mass/Vol]153 mg/lBIxzk38-678IoslbyxioMercy Health Lorain HospitalComment on above:ADA recommended reference rangeRandom Glucose Reference Range is dependent on time and content of last meal. Glucose of more than 200 mg/dL in a nonstressed, ambulatory subject supports the diagnosisof Diabetes Mellitus.Hematocrit Auto (Bld) [Volume fraction]Ordered By: Ashley Merritt on 95-73-4042Qyjakguilt (Bld) [Volume fraction]41.3 %38.8-50.0 [facility] HospitalHemoglobin [Mass/volume] in BloodOrdered By: Ashley Merritt on 71-45-6702Jsitmdkybt (Bld) [Mass/Vol]13.6 g/dL13.0-17.0 [facility] HospitalLeukocytes [#/volume] corrected for nucleated erythrocytes in Blood by Automated counOrdered By: Ashley Merritt on 12-22-2023 WBC corrected for nucl RBC Auto (Bld) [#/Vol]9.0 10*3/uL4.1-10.5FSt. Anthony's HospitalLymphocytes Auto (Bld) [#/Vol]Ordered By: Ashley Merritt on 24-41-7787Hgrfhbfxdqy (Bld) [#/Vol]1.4 10*3/uL1.00-4.8[facility] HospitalLymphocytes/100 WBC Auto (Bld)Ordered By: Ashley Merritt on 44-09-0365Ckhunaiarmf/100 WBC (Bld)15.0 %.[facility] Auto (RBC) [Entitic mass]Ordered By: Ashley Merritt on 58-37-2745WPS (RBC) [Entitic mass]29.3 pg27.5-35.2FSt. Anthony's HospitalMCHC Auto (RBC) [Mass/Vol]Ordered By: Ashley Merritt on 20-44-0684SWCP (RBC) [Mass/Vol]32.9 g/dL32.5-35.6FSt. Anthony's HospitalMCV Auto (RBC) [Entitic vol] Ordered By: Ashley Merritt on 49-53-9227WLD (RBC) [Entitic vol]89.2 fL83.5-101 [facility] HospitalMonocytes Auto (Bld) [#/Vol]Ordered By: Ashley Merritt on 51-99-7960Leddqbzlq (Bld) [#/Vol]1.3 10*3/uLHigh0.0-0.8[facility] HospitalMonocytes/100 WBC Auto (Bld)Ordered By: Ashley Merritt on 81-54-3868Jqfxcwpqa/100 WBC (Bld)14.6 %.[facility] Neutrophils Auto (Bld) [#/Vol]Ordered By: Ashley Merritt on 12-22-2023 Neutrophils (Bld) [#/Vol]6.2 10*3/uL1.8-7.7FSt. Anthony's Hospital Neutrophils/100 WBC Auto (Bld)Ordered By: Ashley Merritt on 12-22-2023 Neutrophils/100 WBC (Bld)69.1 %.[facility] HospitalNo Panel InformationOrdered By: Ashley Merritt on 98-86-7420Trnlvdjnd GFR (CKD-EPI)> 60.0 mL/MinMercy Health Lorain HospitalPharmacy Creatinine Clearance (Chem 58.48[facility]> 60.0 mL/MinMercy Health Lorain Hospital58.48[facility] HospitalNucleated erythrocytes [Presence] in Blood by Automated countOrdered By: Ashley Merritt on 21-25-6060Sqbvamxkv RBC Auto Ql (Bld)0.1 /100{WBC}0-0.5FSt. Anthony's HospitalPlatelet mean volume Auto (Bld) [Entitic vol]Ordered By: Ashley Merritt on 85-73-4862Glxmtyvt mean volume (Bld) [Entitic vol]8.4 fL6.6-10.1FSt. Anthony's Hospital Platelets Auto (Bld) [#/Vol]Ordered By: Ashley Merritt on 00-56-0087Znnbxxweh (Bld) [#/Vol]145 10*3/jYNok886-187ZofkhzkoiMercy Health Lorain HospitalPotassium [Moles/volume] in Serum or PlasmaOrdered By: Ashley Merritt on 12-22-2023 Potassium [Moles/Vol]3.8 mmol/L3.5-5.1FSt. Anthony's HospitalRBC Auto (Bld) [#/Vol]Ordered By: Ashley Merritt on 60-44-9033MOX (Bld) [#/Vol]4.63 10*6/uL3.90-5.60[facility] Hospitalerum or plasma anion gap determinationOrdered By: Ashley Merritt on 43-04-6458Kcjgn gap [Moles/Vol]12.2 mmol/L6.0-15.0[facility] Hospitalodium [Moles/volume] in Serum or PlasmaOrdered By: Ashley Merritt on 54-69-0744Swvsgg [Moles/Vol]137 mmol/L 136-145[facility] HospitalUrea nitrogen [Mass/volume] in Serum or PlasmaOrdered By: Ashley Merritt on 30-86-3785Momz nitrogen [Mass/Vol]25 mg/dL 7-25[facility] HospitalWBC Auto (Bld) [#/Vol]Ordered By: Ashley Merritt on 68-11-9873FGP (Bld) [#/Vol]9.0 10*3/uL4.1-10.5FSt. Anthony's HospitalActivated partial thromboplastin time (aPTT) in platelet poor plasma by coagulation aOrdered By: Caren Crooks on 72-71-9456lBKJ Coag (PPP) [Time]36.5 s25.1-36.5FSt. Anthony's HospitalComment on above:A hematocrit value greater than 55% may lead to inaccurate results in coagulation testing. Patientshaving hematocrit values >55% require a special collection tube for coagulation studies. Please contact the laboratory at [phone] for redraw instructions.Alanine aminotransferase [Enzymatic activity/volume] in Serum or PlasmaOrdered By: Caren Crooks on 55-50-4000PMB [Catalytic activity/Vol]41 U/L7-52[facility] HospitalAlbumin [Mass/volume] in Serum or Plasma by Bromocresol green (BCG) dye binding methoOrdered By: Caren Crooks on 89-02-4512Bzyblsj BCG dye [Mass/Vol]4.2 g/dL3.5-5.7FSt. Anthony's HospitalAlkaline phosphatase [Enzymatic activity/volume] in Serum or PlasmaOrdered By: Caren Crooks on 90-61-1469GJE [Catalytic activity/Vol]87 U/L 34-104[facility] HospitalAnisocytosis LM Ql (Bld)Ordered By: Caren Crooks on 19-57-5122Bxffgpgheygx Ql (Bld)SlightMercy Health Lorain HospitalAspartate aminotransferase [Enzymatic activity/volume] in Serum or Plasma Ordered By: Caren Crooks on 16-82-4726SLQ [Catalytic activity/Vol]38 U/L13-39 [facility] HospitalBacteria [Presence] in Urine by Automated Ordered By: Caren Crooks on 43-01-9580Qjtakqlq Auto Ql (U)None seen [HPF]None SeenMercy Health Lorain HospitalBasophils Auto (Bld) [#/Vol]Ordered By: Caren Crooks on 14-03-8872Qofvdrrml (Bld) [#/Vol]N/[facility] HospitalBasophils/100 WBC Auto (Bld)Ordered By: Caren Crooks on 12-20-2023 Basophils/100 WBC (Bld)N/[facility] HospitalBilirubin Test strip Ql (U)Ordered By: Caren Crooks on 63-22-0339Xbedhopas Ql (U)NegativeNegative [facility] HospitalBilirubin.total [Mass/volume] in Serum or PlasmaOrdered By: Caren Crooks on 18-45-6017Mmgjsgpgs [Mass/Vol]0.9 mg/dL 0.3-1.0[facility] HospitalBurr cells [Presence] in Blood by Light microscopyOrdered By: Caren Crooks on 22-05-4470Jgmq cells LM Ql (Bld)Slight [facility] HospitalCalcium [Mass/volume] in Serum or PlasmaOrdered By: Caren Crooks on 17-92-4151Scdghhj [Mass/Vol]9.8 mg/dL8.6-10.3FSt. Anthony's HospitalCarbon dioxide, total [Moles/volume] in Serum or Plasma Ordered By: Caren Crooks on 91-01-1448IF0 [Moles/Vol]27.0 mmol/L21.0-31.0 [facility] HospitalChloride [Moles/volume] in Serum or Plasma Ordered By: Caren Crooks on 20-79-8988Khqaagek [Moles/Vol]106 mmol/L98-107 [facility] HospitalColor Auto (U)Ordered By: Caren Crooks on 29-14-6500Gjlaw (U)Light-yellowYellowMercy Health Lorain HospitalCreatinine [Mass/volume] in Serum or PlasmaOrdered By: Caren Crooks on 12-20-2023 Creatinine [Mass/Vol]1.02 mg/dL0.70-1.30[facility] Eosinophils Auto (Bld) [#/Vol]Ordered By: Caren Crooks on 42-59-7760Vhbfwhppbxw (Bld) [#/Vol]N/[facility] HospitalEosinophils/100 WBC Auto (Bld) Ordered By: Caren Crooks on 33-04-2145Jgjnnwwiwyp/100 WBC (Bld)NSamaritan North Health CenterEosinophils/100 WBC Manual cnt (Bld)Ordered By: Caren Crooks on 10-67-0335Fmslxicxlam/100 WBC (Bld)1 %1-3FSt. Anthony's HospitalEpithelial cells.squamous [#/area] in Urine sediment by Automated count Ordered By: Caren Crooks on 32-77-9260Ombmakigqo cells.squamous Auto (Urine sed) [#/Area]N/[facility] HospitalErythrocyte distribution width Auto (RBC) [Ratio]Ordered By: Caren Crooks on 03-24-8740Suljhdbnrzw distribution width (RBC) [Ratio]15.6 %High12.0-14.8[facility] HospitalErythrocytes [#/area] in Urine sediment by Automated countOrdered By: Caren Crooks on 00-88-1463HUG Auto (Urine sed) [#/Area]1-2 [HPF]0-4FSt. Anthony's HospitalGlobulin Calc (S) [Mass/Vol]Ordered By: Caren Crooks on 33-48-1913Vyghlhdm (S) [Mass/Vol]3.1 g/dLMercy Health Lorain Hospital Glucose [Mass/volume] in Serum or PlasmaOrdered By: Caren Crooks on 12-20-2023 Glucose [Mass/Vol]112 mg/gEVzas78-644ImymvlfyaMercy Health Lorain HospitalComment on above:ADA recommended reference rangeRandom Glucose Reference Range is dependent on time and content of last meal. Glucose of more than 200 mg/dL in a nonstressed, ambulatory subject supports the diagnosisof Diabetes Mellitus. Glucose [Mass/volume] in Urine by Test stripOrdered By: Caren Crooks on 21-76-7556Ekhajtv Test strip (U) [Mass/Vol]Normal mg/dLNormalMercy Health Lorain HospitalHematocrit Auto (Bld) [Volume fraction]Ordered By: Caren Crooks on 61-90-8223Vpoknfgjgq (Bld) [Volume fraction]38.4 %Low38.8-50.0[facility] HospitalHemoglobin Test strip Ql (U)Ordered By: Caren Crooks on 32-65-6518Slibeomefh Ql (U)NegativeNegativeMercy Health Lorain Hospital Hemoglobin [Mass/volume] in BloodOrdered By: Caren Crooks on 12-20-2023 Hemoglobin (Bld) [Mass/Vol]12.8 g/dLLow13.0-17.0[facility] HospitalHyaline casts [#/area] in Urine sediment by Automated countOrdered By: Caren Crooks on 14-42-6298Ikxospv casts Auto (Urine sed) [#/Area]None [LPF]0-8 [facility] HospitalINR in Platelet poor plasma by Coagulation assayOrdered By: Caren Crooks on 89-44-4943EBJ Coag (PPP) [Relative time]1.8 {INR}[facility] HospitalComment on above:INR Therapeutic Range A) Pre- and Peroperative OAT started two weeks before surgery. NOT HIP SURGERY: 1.5 - 2.5 HIP SURGERY: 2 - 3B) Primary and secondary prevention of venous THROMBOSIS: 2 - 3C) Active venous thrombosis, pulmonary embolismand prevention of recurrent venous thrombosis: 2 - 3D) Prevention of arterial thromboembolismincluding patients with mechanical heart valves: 3 - 4.5Ketones Test strip Ql (U)Ordered By: Caren Crooks on 14-51-4408Txxeytg Ql (U)Negative NegativeMercy Health Lorain HospitalLeukocyte esterase [Presence] in Urine by Test stripOrdered By: Caren Crooks on 04-18-5211Plmfbrunh esterase Test strip Ql (U)NegativeNegativeMercy Health Lorain HospitalLeukocytes [#/area] in Urine sediment by Automated countOrdered By: Caren Crooks on 20-68-8732COX Auto (Urine sed) [#/Area]1-2 [HPF]0-4[facility] CenterLeukocytes [#/volume] corrected for nucleated erythrocytes in Blood by Automated coun Ordered By: Caren Crooks on 98-26-3484FHB corrected for nucl RBC Auto (Bld) [#/Vol]7.1 10*3/uL4.1-10.5FSt. Anthony's HospitalLymphocytes Auto (Bld) [#/Vol]Ordered By: Caren Crooks on 39-88-9106Dhwvaikpfhv (Bld) [#/Vol]N/A [facility] HospitalLymphocytes/100 WBC Auto (Bld)Ordered By: Caren Crooks on 07-54-3053Weygpvqtdvz/100 WBC (Bld)N/[facility] HospitalLymphocytes/100 WBC Manual cnt (Bld)Ordered By: Caren Crooks on 58-52-7234Amvmgqpvcyt/100 WBC (Bld)8 %Syo06-03LamfykjvgMercy Health Lorain Hospital MCH Auto (RBC) [Entitic mass]Ordered By: Caren Crooks on 17-55-6464FIJ (RBC) [Entitic mass]29.8 pg27.5-35.2FSt. Anthony's HospitalMCHC Auto (RBC) [Mass/Vol]Ordered By: Caren Crooks on 84-45-3645XABI (RBC) [Mass/Vol]33.4 g/dL 32.5-35.6FSt. Anthony's HospitalMCV Auto (RBC) [Entitic vol]Ordered By: Caren Crooks on 38-54-2489KVT (RBC) [Entitic vol]89.3 fL83.5-101[facility] HospitalMagnesium [Mass/volume] in Serum or PlasmaOrdered By: Caren Crooks on 03-33-3037Zeysqhxzw [Mass/Vol]1.7 mg/dLLow1.9-2.7FSt. Anthony's HospitalMonocyte distribution width [Entitic volume] in Blood by AutomatedOrdered By: Caren Crooks on 78-57-8886Oxgbhbbq distribution width Auto (Bld) [Entitic vol]17.52 %0.00-20.00[facility] HospitalMonocytes Auto (Bld) [#/Vol]Ordered By: Caren Crooks on 24-95-0938Gufcmhjfv (Bld) [#/Vol] NSamaritan North Health CenterMonocytes/100 WBC Auto (Bld)Ordered By: Caren Crooks on 41-80-0211Tnbrqctkn/100 WBC (Bld)NSamaritan North Health CenterMonocytes/100 WBC Manual cnt (Bld)Ordered By: Caren Crooks on 12-20-2023 Monocytes/100 WBC (Bld)7 %2-11[facility] HospitalMyelocytes/100 WBC Manual cnt (Bld)Ordered By: Caren Crooks on 51-88-3360Utfesavlvv/100 WBC (Bld)1 %High0-0[facility] HospitalNeutrophils Auto (Bld) [#/Vol] Ordered By: Caren Crooks on 90-97-5317Ukddtnfedob (Bld) [#/Vol]NSamaritan North Health CenterNeutrophils/100 WBC Auto (Bld)Ordered By: Caren Crooks on 13-37-3107Fswyjcteqkh/100 WBC (Bld)[facility] Nitrite Test strip Ql (U)Ordered By: Caren Crooks on 84-22-7383Bzcmwxs Ql (U) NegativeNegativeMercy Health Lorain HospitalNo Panel InformationOrdered By: Caren Crooks on 14-20-7905Njwkupieg GFR (CKD-EPI)> 60.0 mL/MinMercy Health Lorain HospitalPharmacy Creatinine Clearance (Chem51.02[facility]> 60.0 mL/MinMercy Health Lorain Hospital51.02 [facility] HospitalNucleated erythrocytes [Presence] in Blood by Automated countOrdered By: Caren Crooks on 46-40-9972Twbvqvrhm RBC Auto Ql (Bld)[facility] CenterOvalocyte detectionOrdered By: Caren Crooks on 89-16-3585Eedxcgioiy LM Ql (Bld)SlightMercy Health Lorain HospitalPlatelet adequacy [Presence] in Blood by Light microscopyOrdered By: Caren Crooks on 14-86-1161Yndposhuk LM Ql (Bld)NormalNormalMercy Health Lorain HospitalPlatelet mean volume Auto (Bld) [Entitic vol]Ordered By: Caren Crooks on 83-19-2891Kyodkbda mean volume (Bld) [Entitic vol]8.1 fL6.6-10.1 [facility] HospitalPlatelet morphology finding [Identifier] in BloodOrdered By: Caren Crooks on 48-24-2400Ffqjefmy morphology finding Nom (Bld)NormalNormalMercy Health Lorain HospitalPlatelets Auto (Bld) [#/Vol] Ordered By: Caren Crooks on 62-78-6079Fzvfwbjpg (Bld) [#/Vol]156 10*3/yT649-470 [facility] HospitalPoikilocytosis [Presence] in Blood by Light microscopyOrdered By: Caren Crooks on 75-07-2285Pbgmqemjojoeib LM Ql (Bld) [facility] HospitalPolychromasia [Presence] in Blood by Light microscopyOrdered By: Caren Crooks on 55-20-5987Wymhtnqokwftr LM Ql (Bld) [facility] HospitalPotassium [Moles/volume] in Serum or PlasmaOrdered By: Caren Crooks on 87-32-2909Dhuettqxv [Moles/Vol]4.4 mmol/L 3.5-5.1FSt. Anthony's HospitalProtein Test strip (U) [Mass/Vol]Ordered By: Caren Crooks on 58-15-8419Rgbztgi (U) [Mass/Vol]Trace mg/dLHighNegative [facility] HospitalProtein [Mass/volume] in Serum or PlasmaOrdered By: Caren Crooks on 49-52-4310Iedlwll [Mass/Vol]7.3 g/dL6.4-8.9[facility] HospitalProthrombin time (PT)Ordered By: Caren Crooks on 07-27-9472QP Coag (PPP) [Time]20.7 sHigh9.0-12.9[facility] HospitalComment on above:A hematocrit value greater than 55% may lead to inaccurate results in coagulation testing. Patientshaving hematocrit values >55% require a special collection tube for coagulation studies. Please contact the laboratory at [phone] for redraw instructions.RBC Auto (Bld) [#/Vol]Ordered By: Caren Crooks on 06-32-3426ACM (Bld) [#/Vol]4.29 10*6/uL3.90-5.60[facility] HospitalRBC morphologyOrdered By: Caren Crooks on 36-50-6679QRC morphology finding Nom (Bld)N/AFOhioHealth Dublin Methodist Hospitalegmented neutrophils/100 WBC Manual cnt (Bld)Ordered By: Caren Crooks on 12-20-2023 Segmented neutrophils/100 WBC (Bld)84 %Enmq86-31KmdpjijeiAkron Children's Hospitalerum or plasma albumin/globulin mass ratioOrdered By: Caren Crooks on 11-33-2931Vcvtqee/Globulin [Mass ratio]1.4 {ratio}[facility] Hospitalerum or plasma anion gap determinationOrdered By: Caren Crooks on 96-99-6420Ucrns gap [Moles/Vol]9.4 mmol/L6.0-15.0[facility] Hospitalodium [Moles/volume] in Serum or PlasmaOrdered By: Caren Crooks on 87-98-8176Bclmuy [Moles/Vol]138 mmol/V864-372IxcegobqdMercy Health Lorain Hospital Specific gravity Test strip (U) [Rel density]Ordered By: Caren Crooks on 52-16-6173Fosmvfgi gravity (U) [Rel density]1.0191.001-1.030[facility] HospitalUrea nitrogen [Mass/volume] in Serum or PlasmaOrdered By: Caren Crooks on 72-61-2048Dizn nitrogen [Mass/Vol]31 mg/dLHigh7-25[facility] HospitalUrine appearanceOrdered By: Caren Crooks on 85-79-5467Fsysmutkog (U)ClearCleDunlap Memorial HospitalUrobilinogen Test strip (U) [Mass/Vol]Ordered By: Caren Crooks on 77-55-4082Myciuognpicf (U) [Mass/Vol] Normal mg/dLNormalMercy Health Lorain HospitalWBC Auto (Bld) [#/Vol]Ordered By: Caren Crooks on 76-66-0613AJM (Bld) [#/Vol]7.1 10*3/uL4.1-10.5FSt. Anthony's HospitalpH Test strip (U)Ordered By: Caren Crooks on 12-20-2023 pH (U)5.0 [pH]5.0-9.0[facility] HospitalINR in Platelet poor plasma by Coagulation assayOrdered By: Isai May on 25-61-6462GJW Coag (PPP) [Relative time]2.2 {INR}[facility] HospitalComment on above: INR Therapeutic Range A) Pre- and Peroperative OAT started two weeks before surgery. NOT HIP SURGERY: 1.5 - 2.5 HIP SURGERY: 2 - 3B) Primary and secondary prevention of venous THROMBOSIS: 2 - 3C) Active venous thrombosis, pulmonary embolismand prevention of recurrent venous thrombosis: 2 - 3D) Prevention of arterial thromboembolismincluding patients with mechanical heart valves: 3 - 4.5 Magnesium [Mass/volume] in Serum or PlasmaOrdered By: Isai May on 15-73-2117Njeyiochz [Mass/Vol]1.6 mg/dL1.9-2.7FSt. Anthony's Hospital Prothrombin time (PT)Ordered By: Isai May on 90-18-5496MT Coag (PPP) [Time]25.0 s9.0-12.9[facility] HospitalComment on above:A hematocrit value greater than 55% may lead to inaccurate results in coagulation testing. Patientshaving hematocrit values >55% require a special collection tube for coagulation studies. Please contact the laboratory at [phone] for redraw instructions.Basophils Auto (Bld) [#/Vol]Ordered By: Isai May on 51-28-2099Mkdqevmcf (Bld) [#/Vol]0.0 10*3/uL0.0-0.2FSt. Anthony's HospitalBasophils/100 WBC Auto (Bld)Ordered By: Isai May on 06-05-2023 Basophils/100 WBC (Bld)0.6 %.[facility] HospitalCalcium [Mass/volume] in Serum or PlasmaOrdered By: Isai May on 79-14-3402Xjmwvzn [Mass/Vol]9.2 mg/dL8.6-10.3FSt. Anthony's HospitalCarbon dioxide, total [Moles/volume] in Serum or PlasmaOrdered By: Isai May on 06-05-2023 CO2 [Moles/Vol]25.2 mmol/L21.0-31.0[facility] HospitalChloride [Moles/volume] in Serum or PlasmaOrdered By: Isai May on 06-05-2023 Chloride [Moles/Vol]106 mmol/P67-807XbvqbvehsMercy Health Lorain HospitalCholesterol [Mass/volume] in Serum or PlasmaOrdered By: Isai May on 06-05-2023 Cholesterol [Mass/Vol]148 mg/mJ635-400HkvukecykMercy Health Lorain HospitalComment on above:Chol less than 200 mg/dl low riskChol 201-239 mg/dl borderline riskChol 240 mg/dl and greater high riskCholesterol in LDL Calc [Mass/Vol]Ordered By: Isai May on 56-21-0144Ymyyvhtnupj in LDL [Mass/Vol]79 mg/dL0-100[facility] HospitalComment on above:LDL ATP III CLASSIFICATIONLDL less than 100 mg/dL OptimalLDL 100-129 mg/dL Near or above gtwstttTRH945-750 mg/dL Borderline highLDL 160-189 mg/dL HighLDL greater than 189 mg/dL Very high Cholesterol in VLDL Calc [Mass/Vol]Ordered By: Isai May on 06-05-2023 Cholesterol in VLDL [Mass/Vol]17 mg/dLMercy Health Lorain HospitalCreatine kinase [Enzymatic activity/volume] in Serum or PlasmaOrdered By: Isai May on 80-44-5462FU [Catalytic activity/Vol]56 U/Q07-672EmdfqlwzrMercy Health Lorain HospitalCreatinine [Mass/volume] in Serum or PlasmaOrdered By: Isai May on 02-00-7888Gsvletxxpd [Mass/Vol]0.86 mg/dL0.70-1.30[facility] HospitalEosinophils Auto (Bld) [#/Vol]Ordered By: Isai May on 06-05-2023 Eosinophils (Bld) [#/Vol]0.1 10*3/uL0.0-0.45[facility] Eosinophils/100 WBC Auto (Bld)Ordered By: Isai May on 06-05-2023 Eosinophils/100 WBC (Bld)2.3 %.[facility] HospitalErythrocyte distribution width Auto (RBC) [Ratio]Ordered By: Isai May on 06-05-2023 Erythrocyte distribution width (RBC) [Ratio]14.6 %12.0-14.8[facility] HospitalGlucose [Mass/volume] in Serum or PlasmaOrdered By: Isai May on 09-87-0149Jpkwhdl [Mass/Vol]96 mg/iI69-448SwisiqnmtMercy Health Lorain Hospital Comment on above:ADA recommended reference rangeRandom Glucose Reference Range is dependent on time and content of last meal. Glucose of more than 200 mg/dL in a nonstressed, ambulatory subject supports the diagnosisof Diabetes Mellitus. Glucose mean value [Mass/volume] in Blood Estimated from glycated hemoglobin Ordered By: Isai May on 89-43-0175Hkzxwmm glucose Estimated from glycated hemoglobin (Bld) [Mass/Vol]114 mg/dLMercy Health Lorain HospitalHematocrit Auto (Bld) [Volume fraction]Ordered By: Isai May on 46-38-1991Uxitnktvkv (Bld) [Volume fraction]35.9 %38.8-50.0[facility] Hemoglobin A1c percentageOrdered By: Isai May on 10-36-2344IaO0q (Bld) [Mass fraction]5.6 %4.3-5.6FSt. Anthony's HospitalComment on above: Increased risk for diabetes: 5.7 - 6.4diabetes: >6.4glycemic control for adults with diabetes: <7.0Hemoglobin [Mass/volume] in BloodOrdered By: Isai May on 83-16-1845Aqanmsxsgh (Bld) [Mass/Vol]12.0 g/dL13.0-17.0[facility] HospitalLeukocytes [#/volume] corrected for nucleated erythrocytes in Blood by Automated counOrdered By: Isai May on 06-05-2023 WBC corrected for nucl RBC Auto (Bld) [#/Vol]4.8 10*3/uL4.1-10.5FSt. Anthony's HospitalLymphocytes Auto (Bld) [#/Vol]Ordered By: Isai May on 41-48-6211Rxpacmatsfc (Bld) [#/Vol]1.2 10*3/uL1.00-4.8[facility] HospitalLymphocytes/100 WBC Auto (Bld)Ordered By: Isai May on 00-26-6143Tosafnchbvl/100 WBC (Bld)24.7 %.[facility] HospitalMCH Auto (RBC) [Entitic mass]Ordered By: Isai May on 79-79-8785DJF (RBC) [Entitic mass]29.3 pg27.5-35.2FSt. Anthony's HospitalMCHC Auto (RBC) [Mass/Vol]Ordered By: Isai May on 91-99-9002PHFS (RBC) [Mass/Vol]33.6 g/dL 32.5-35.6FSt. Anthony's HospitalMCV Auto (RBC) [Entitic vol]Ordered By: Isai May on 45-59-7246DLQ (RBC) [Entitic vol]87.4 fL83.5-101[facility] HospitalMonocytes Auto (Bld) [#/Vol]Ordered By: Isai May on 20-75-8406Ywagcikcg (Bld) [#/Vol]0.7 10*3/uL0.0-0.8[facility] HospitalMonocytes/100 WBC Auto (Bld)Ordered By: Isai May on 06-05-2023 Monocytes/100 WBC (Bld)13.7 %.[facility] HospitalNeutrophils Auto (Bld) [#/Vol]Ordered By: Isai May on 77-59-3116Lpegrgekpax (Bld) [#/Vol] 2.8 10*3/uL1.8-7.7FSt. Anthony's HospitalNeutrophils/100 WBC Auto (Bld)Ordered By: Isai May on 35-71-9694Dnefinfvjcu/100 WBC (Bld)58.7 %. [facility] HospitalNo Panel InformationOrdered By: Isai May on 60-65-6978Tgdpevwes GFR (CKD-EPI)> 60.0 mL/MinMercy Health Lorain HospitalPharmacy Creatinine Clearance (Chem60.52[facility] [facility] Nucleated erythrocytes [Presence] in Blood by Automated countOrdered By: Isai May on 34-67-9060Ciogdnhpg RBC Auto Ql (Bld)0.0 /100{WBC}0-0.5FSt. Anthony's HospitalPlatelet mean volume Auto (Bld) [Entitic vol]Ordered By: Isai May on 15-73-9098Fgjirjll mean volume (Bld) [Entitic vol]8.4 fL 6.6-10.1FSt. Anthony's HospitalPlatelets Auto (Bld) [#/Vol]Ordered By: Isai May on 35-98-0276Rzfkakgsc (Bld) [#/Vol]158 10*3/tT015-800VftvxotofMercy Health [facility]ain HospitalPotassium [Moles/volume] in Serum or PlasmaOrdered By: Isai May on 62-11-1326Skgptuxbd [Moles/Vol]3.7 mmol/L3.5-5.1FSt. Anthony's HospitalRBC Auto (Bld) [#/Vol]Ordered By: Isai May on 66-76-8284KKA (Bld) [#/Vol]4.11 10*6/uL3.90-5.60[facility]'s Hospitalerum or plasma anion gap determinationOrdered By: Isai May on 93-70-5713Jsgpv gap [Moles/Vol]11.5 mmol/L6.0-15.0[facility]'s Hospitalerum or plasma high density lipoprotein (HDL) cholesterol measurement Ordered By: Isai May on 35-21-7056Bzacquwhhot in HDL [Mass/Vol]52 mg/dL 23-92Mer[facility] HospitalComment on above:HDL CHOL ATP-III CLASSIFICATION Cardiovascular RiskHDL > or equal to 60 mg/dL LOWHDL < 40 mg/dL HIGHSerum or plasma total cholesterol/high density lipoprotein (HDL) cholesterol mass ratOrdered By: Isai May on 04-05-6890Gitpjxdmjmw.total/Cholesterol in HDL [Mass ratio]2.8 {ratio}<5.0[facility] Hospitalodium [Moles/volume] in Serum or PlasmaOrdered By: Isai May on 40-90-7259Pmajvy [Moles/Vol]139 mmol/F702-553FhyvxvlnfMercy Health [facility] HospitalTriglyceride [Mass/volume] in Serum or PlasmaOrdered By: Isai May on 06-05-2023 Triglyceride [Mass/Vol]87 mg/dL0-149Mer[facility] HospitalComment on above:TRIG ATP III CLASSIFICATIONTRIG less than 150 mg/dL NormalTRIG 150-199 mg/dL Borderline highTRIG 200-500 mg/dL High TRIG greater than 500 mg/dL Very highStandard traceable to the Center for Disease Conrtrol and Prevention (CDC) test method.Troponin I.cardiac [Mass/volume] in Serum or Plasma by Detection limit <= 0.01 ng/Ordered By: Isai May on 06-74-9704Muojuwqi I.cardiac DL <= 0.01 ng/mL [Mass/Vol]55.4 pg/mL0.0-20.0[facility] Comment on above:Critical Result : Called to and read back by: DELILAH PINON at: 06/05/2023 20:01:35 by:[id number] nitrogen [Mass/volume] in Serum or Plasma Ordered By: Isai May on 96-67-7030Rych nitrogen [Mass/Vol]20 mg/dL7-25 [facility] HospitalWBC Auto (Bld) [#/Vol]Ordered By: Isai May on 68-99-9513WAG (Bld) [#/Vol]4.8 10*3/uL4.1-10.5FSt. Anthony's HospitalActivated partial thromboplastin time (aPTT) in platelet poor plasma by coagulation aOrdered By: Tay Wood on 11-93-4641dJXL Coag (PPP) [Time]48.5 s25.1-36.5FSt. Anthony's HospitalComment on above:A hematocrit value greater than 55% may lead to inaccurate results in coagulation testing. Patientshaving hematocrit values >55% require a special collection tube for coagulation studies. Please contact the laboratory at [phone] for redraw instructions.Alanine aminotransferase [Enzymatic activity/volume] in Serum or PlasmaOrdered By: Tay Wood on 39-03-3487HAM [Catalytic activity/Vol] 19 U/L7-52[facility] HospitalAlbumin [Mass/volume] in Serum or Plasma by Bromocresol green (BCG) dye binding methoOrdered By: Tay Wood on 61-79-5003Xflxdhb BCG dye [Mass/Vol]4.2 g/dL3.5-5.7FSt. Anthony's HospitalAlkaline phosphatase [Enzymatic activity/volume] in Serum or PlasmaOrdered By: Tay Wood on 75-94-6243XXW [Catalytic activity/Vol]97 U/Q42-845WbgkojszsMercy Health [facility] HospitalAspartate aminotransferase [Enzymatic activity/volume] in Serum or PlasmaOrdered By: Tay Wood on 51-91-1424SDD [Catalytic activity/Vol] 30 U/L27-96HppsxfdgfMercy Health [facility] HospitalBilirubin Test strip Ql (U)Ordered By: Tay Wood on 53-21-4686Rburzrvuj Ql (U)NegativeNegativeMercy Health [facility] HospitalBilirubin.direct [Mass/volume] in Serum or PlasmaOrdered By: Tay Wood on 51-70-6736Hgbwikkhp.direct [Mass/Vol]0.10 mg/dL0.03-0.18FSt. Anthony's HospitalBilirubin.total [Mass/volume] in Serum or PlasmaOrdered By: Tay Wood on 12-57-8170Tivphgveq [Mass/Vol]0.5 mg/dL0.3-1.0[facility] HospitalColor Auto (U)Ordered By: Tay Wood on 36-30-8871Iiqmx (U)YellowYellowMercy Health [facility] HospitalCreatinine (Bld) [Mass/Vol] Ordered By: Isai May on 71-63-1953Nlkdcthisw [Mass/Vol]1.0 mg/dL0.6-1.3 [facility] HospitalComment on above:ER/ESD physician is notified/shown all ISTAT results.Critical values may be confirmed by laboratory testing ifdeemed necessary by ER attending doctor.Globulin Calc (S) [Mass/Vol] Ordered By: Tay Wood on 15-82-6745Fezqvxtk (S) [Mass/Vol]3.1 g/dLMercy Health Lorain HospitalGlucose Glucometer (BldC) [Mass/Vol]Ordered By: Tay Wood on 96-26-9121Oqarmkr [Mass/Vol]92 mg/dLMercy Health [facility] Hospital Comment on above:Random Glucose Reference Range is dependent on time and content of last meal. Glucose of more than 200 mg/dL in a nonstressed, ambulatory subject supports the diagnosis of Diabetes Mellitus.Ketones Auto test strip (U) [Mass/Vol]Ordered By: Tay Wood on 60-97-0644Vjaephd (U) [Mass/Vol]Negative NegativeMercy Health [facility]ain HospitalMonocyte distribution width [Entitic volume] in Blood by AutomatedOrdered By: Tay Wood on 51-15-7729Taasskcc distribution width Auto (Bld) [Entitic vol]17.82 %0.00-20.00[facility] HospitalNatriuretic peptide B [Mass/Vol]Ordered By: Tay Wood on 04-58-8849Lcijkodncca peptide B (Bld) [Mass/Vol]404.0 pg/mL5-100[facility] HospitalNitrite Test strip Ql (U)Ordered By: Tay Wood on 13-93-9259Papdnro Ql (U)NegativeNegativeMercy Health Lorain HospitalNo Panel InformationOrdered By: Isai May on 02-34-9557Ulxdrpi Estimated GFR (eGFR)> 60.0[facility] HospitalProtein Auto test strip (U) [Mass/Vol]Ordered By: Tay Wood on 73-43-4287Oztuvzh (U) [Mass/Vol]Negative NegativeMercy Health Lorain HospitalProtein [Mass/volume] in Serum or PlasmaOrdered By: Tay Wood on 63-34-0490Tawfssw [Mass/Vol]7.3 g/dL6.4-8.9 [facility] Hospitalerum or plasma albumin/globulin mass ratio Ordered By: Tay Wood on 60-68-4239Auqipbp/Globulin [Mass ratio]1.4 {ratio} [facility] Hospitalerum or plasma non-glucuronidated bilirubin measurement (mass/volume)Ordered By: Tay Wood on 55-01-8447Rtabhebbr.indirect [Mass/Vol]0.4 mg/dLAkron Children's Hospitalpecific gravity Auto test strip (U) [Rel density]Ordered By: Tay Wood on 30-82-6612Phucgscd gravity (U) [Rel density]1.0381.001-1.030[facility] HospitalUrine clarity by refractometry automatedOrdered By: Tay Wood on 50-60-9699Mmutswm Refractometry automated (U)ClearClearFSt. Anthony's HospitalUrine glucose measurement by automated test strip (mass/volume)Ordered By: Tay Wood on 02-34-5929Pfglgai Auto test strip (U) [Mass/Vol]Normal mg/dLNormLakeHealth TriPoint Medical CenterUrine hemoglobin detection by automated test stripOrdered By: Tay Wood on 16-29-6211Jdovpgcsss Auto test strip Ql (U)NegativeNegative [facility] HospitalUrine leukocyte esterase detection by automated test stripOrdered By: Tay Wood on 86-34-6871Rzqppvgjz esterase Auto test strip Ql (U)NegativeNegativeMercy Health [facility] HospitalUrobilinogen Auto test strip (U) [Mass/Vol]Ordered By: Tay Wood on 91-21-4105Bdydlgxwjimc (U) [Mass/Vol]Normal mg/dLNormLakeHealth TriPoint Medical CenterpH Auto test strip (U)Ordered By: Tay oWod on 52-55-4927lE (U)5.0 [pH]5.0-9.0[facility] HospitalAmmonium urate crystals detection in stone by infrared spectroscopyOrdered By: Julio C Ramirez on 55-22-7619Omzmstmw urate crystals Infrared spectroscopy Ql (Stone)N/[facility] HospitalCalcium bilirubinate measurementOrdered By: Julio C Ramirez on 91-12-4881Qqbecdw bilirubinate (Stone) [Mass fraction][facility] CenterCalcium carbonate measurementOrdered By: Julio C Ramirez on 37-73-8304Axjcrgb carbonate (Stone) [Mass fraction][facility] CenterCalcium hydrogen phosphate dihydrate/Total in StoneOrdered By: Julio C Ramirez on 19-90-6680Imtkcst hydrogen phosphate dihydrate (Stone) [Mass fraction]N/[facility] HospitalCalcium oxalate dihydrate crystals detection in stone by infrared spectroscopyOrdered By: Julio C Ramirez on 84-73-3633Trmrlne oxalate dihydrate crystals Infrared spectroscopy Ql (Stone)N/[facility] Calcium oxalate monohydrate/Total in StoneOrdered By: Julio C Ramirez on 05-05-2023 Calcium oxalate monohydrate (Stone) [Mass fraction]10 %.[facility] HospitalCalcium phosphate measurementOrdered By: Julio C Ramirez on 53-07-1671Zzabraf phosphate (Stone) [Mass fraction]/AFirelands Regional Medical CenterCalculus analysis interpretation in stoneOrdered By: Julio C Ramirez on 47-40-8197Ikisjffs analysis [Interp]N/[facility] HospitalCalculus analysis [Interp]See comment.[facility] HospitalComment on above: Calculus received wet. Wet calculi must be dried beforeanalysis, which delays reporting of results.Leaving calculiwet (such as water, saline, blood, urine) may lead tochanges in composition.Physician questions regarding Calculi Analysis contactRice County Hospital District No.1Co at: [phone].Calculi report will follow via computer, mail or courierdelivery.Calculus analysis with calculus photography interpretation in stoneOrdered By: Julio C Ramirez on 88-72-0347Mahbufpp analysis with calculus photography [Interp]See comment.[facility] HospitalComment on above:Photograph will follow under a separate coverCellular material measurement in stone by estimated (mass/mass)Ordered By: Julio C Ramirez on 25-17-4944Pronoxqy material Est (Stone) [Mass/Mass][facility] Cholesterol/Total in StoneOrdered By: Julio C Ramirez on 81-18-9842Pahncpkbney (Stone) [Mass fraction][facility] CenterComposition of stone Ordered By: Julio C Ramirez on 60-24-6381Bjmfwagvbll Nom (Stone)See comment. [facility] HospitalComment on above:Percentage (Represents the % composition)Cystine measurementOrdered By: Julio C Ramirez on 83-91-3127Imxginw (Unsp spec) [Moles/Vol][facility] CenterDetermination of color of calculusOrdered By: Julio C Ramirez on 75-33-8519Byutz (Stone)Brown. [facility] HospitalHydroxyapatite [Energy Difference] in 24 hour UrineOrdered By: Julio C Ramirez on 71-12-0085Vedkcflqhhjgng (24H U) [Energy diff] [facility] CenterMeasurement of proportion of calculus composed of dried blood (mass/mass)Ordered By: Julio C Ramirez on 05-05-2023 Blood.dried (Stone) [Mass fraction][facility] Newberyite/Total in StoneOrdered By: Julio C Ramirez on 42-18-5637Gsbncffofe (Stone) [Mass fraction]N/[facility] HospitalNo Panel Information Ordered By: Julio C Ramirez on 69-70-9335Udltr 2,8 DihydroxyadenineN/[facility] Centerton Analysis DisclaimerSee comment.[facility] HospitalComment on above:This test was developed and its performance characteristicsdetermined by [employer]. It has not been cleared or approvedby the Food and Drug Administration.Performed at: [address] [id number] Director: Tone Kelly PhD, Phone: [phone] BilirubinateN/[facility] Centertone Calcium PalmitateN/[facility] Centertone Calcium StearateN/[facility] Centertone Carbonate ApatiteN/[facility] Centertone Drug or MetaboliteN/[facility] Centertone Other ConstituentN/[facility] Centertone XanthineN/[facility] Centerize [Entitic volume] of StoneOrdered By: Julio C Ramirez on 31-49-2498Gcsc (Stone) [Entitic vol]5x3 mm.[facility] Comment on above:Multiple pieces received. Dimensions of the largest piecereported.Sodium urate crystals detection in stone by infrared spectroscopy Ordered By: Julio C Ramirez on 76-59-7262Fexogx urate crystals Infrared spectroscopy Ql (Stone)N/[facility] Centerpecimen source subject [Type]Ordered By: Julio C Ramirez on 42-43-1905Zaondpcl source subject Nom See comment.[facility] HospitalComment on above:Right Ureter Triamterene measurement in calculusOrdered By: Julio C Ramirez on 05-05-2023 Triamterene (Stone) [Mass fraction]NSamaritan North Health CenterTriple phosphate/Total in StoneOrdered By: Julio C Ramirez on 41-95-1021Wwhxmo phosphate (Stone) [Mass fraction][facility] CenterUric acid dihydrate crystals detection in stone by infrared spectroscopyOrdered By: Julio C Ramirez on 92-65-3515Qaabf dihydrate crystals Infrared spectroscopy Ql (Stone)90 %. [facility] HospitalUrate dihydrate crystals Infrared spectroscopy Ql (Stone)N/[facility] HospitalUS Heart TransthoracicOrdered By: Bonita Kingsley on 31-76-7513HK A4C EF32.8[facility] Work Phone: [facility] Work Phone: US Heart Transthoracicon 04-03-2023 [facility] [address] [place] [address], [address], [place] [address] TRANSTHORACIC ECHOCARDIOGRAM REPORT Patient Name: FANI CHUA Reading Physician: [id number] Bonita Kingsley MD, [facility] Study Date: 04/03/2023 Ordering Provider: [id number] BONITA KINGSLEY MRN/PID: [id number] Fellow: Nurse: Date of /Age: 12 1935 / 87 years Field Map Editor: Karly Lin RDCS, T Gender: M Additional Staff: Height: 175.26 cm Admit Date: Weight: 75.75 kg Admission Status: BSA: 1.91 m2 Department Location: [facility] Blood Pressure: 130 /74 mmHg Study Type: TRANSTHORACIC ECHO (TTE) COMPLETE Diagnosis/ICD: 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 Ramirez 04/10/2023 CPT Codes: Echo Complete w Full Doppler-59789 Study Detail: The following Echo studies were performed: 2D, M-Mode, Doppler and color flow. PHYSICIAN INTERPRETATION: Left Ventricle: Left ventricular systolic function is mildly to moderately decreased, with an estimated ejection fraction of 45%. There is global hypokinesis of the left ventricle with minor regionalvariations. The left ventricular cavity size is moderate to severely dilated. Left ventricular diast olic filling was not assessed. Patient was in [...] visualized. There is no indication of pulmonic valveregurgitation. Pericardium: There is no pericardial effusion noted. Aorta: The aortic root is normal. Systemic Veins: The inferior vena cava appears mildly dilated. In comparison to the previous echocardiogram(s): When compared to a study from February 2022, there is more dilatation of the left ventricle with progression of the mitral regurgitation from mild tomoderate, left ventricle ejection fraction has slightly dropped [...] VALVE: Normal Ranges: M (more content not included)...Bonita Llamas MD - 04/03/[address], [address] [place] [address] TRANSTHORACIC ECHOCARDIOGRAM REPORT Patient Name: FANI Caldwell Physician: [id number] Bonita Kingsley MD, [facility] Study Date: 04/03/2023 Ordering Provider: [id number] BONITA KINGSLEY MRN/PID: [id number] Fellow: Nurse: Date of /Age: 12 1935 / 87 years Field Map Editor: Karly Lin RDCS, T Gender: M Additional Staff: Height: 175.26 cm Admit Date: Weight: 75.75 kg Admission Status: BSA: 1.91 m2 Department Location: [facility] Blood Pressure: 130 /74 mmHg Study Type: TRANSTHORACIC ECHO (TTE) COMPLETE Diagnosis/ICD: 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 Ramirez 04/10/2023 CPT Codes: Echo Complete w Full Doppler-06431 Study Detail: The following Echo studies were performed: 2D, M-Mode, Doppler and color flow. PHYSICIAN INTERPRETATION: Left Ventricle: Left ventricular systolic function is mildly to moderately decreased, with an estimated ejection fraction of 45%. There is global hypokinesis of the left ventricle with minor regionalvariations. The left ventricular cavity size is moderate to severely dilated. Left ventricular diast olic filling was not assessed. Patient was in [...] visualized. There is no indication of pulmonic valveregurgitation. Pericardium: There is no pericardial effusion noted. Aorta: The aortic root is normal. Systemic Veins: The inferior vena cava appears mildly dilated. In comparison to the previous echocardiogram(s): When compared to a study from February 2022, there is more dilatation of the left ventricle with progression of the mitral regurgitation from mild tomoderate, left ventricle ejection fraction has slightly dropped [...] 0.26 AORTIC INSUFFICIENCY: A (more content not included)...[facility] Work Phone: activated partial thromboplastin time (aPTT) in platelet poor plasma by coagulation aOrdered By: Julio C Ramirez on 82-59-2689oCMF Coag (PPP) [Time]37.0 s25.1-36.5FSt. Anthony's HospitalComment on above:A hematocrit value greater than 55% may lead to inaccurate results in coagulation testing. Patientshaving hematocrit values >55% require a special collection tube for coagulation studies. Please contact the laboratory at [phone] for redraw instructions.Basophils Auto (Bld) [#/Vol]Ordered By: Julio C Ramirez on 81-09-0170Gimvkrhvm (Bld) [#/Vol]0.0 10*3/uL0.0-0.2FSt. Anthony's HospitalBasophils/100 WBC Auto (Bld)Ordered By: Julio C Ramirez on 81-13-4132Sihpgdbga/100 WBC (Bld)0.8 %.[facility] HospitalCalcium [Mass/volume] in Serum or PlasmaOrdered By: Julio C Ramirez on 15-76-4971Axeomkw [Mass/Vol]9.6 mg/dL8.6-10.3FSt. Anthony's HospitalCarbon dioxide, total [Moles/volume] in Serum or PlasmaOrdered By: Julio C Ramirez on 27-73-7406LJ4 [Moles/Vol]26.1 mmol/L21.0-31.0[facility] HospitalChloride [Moles/volume] in Serum or PlasmaOrdered By: Julio C Ramirez on 54-75-6504Avwfjnyj [Moles/Vol]106 mmol/L68-955PswqvconnMercy Health Lor[facility] HospitalCreatinine [Mass/volume] in Serum or PlasmaOrdered By: Julio C Ramirez on 52-55-7156Fqzsqsuekx [Mass/Vol]1.12 mg/dL0.70-1.30[facility] HospitalEosinophils Auto (Bld) [#/Vol]Ordered By: Julio C Ramirez on 06-88-6473Iuesgiuvkeo (Bld) [#/Vol]0.1 10*3/uL0.0-0.45[facility] HospitalEosinophils/100 WBC Auto (Bld) Ordered By: Julio C Ramirez on 60-70-8279Bzkitgpqshg/100 WBC (Bld)1.9 %.[facility] HospitalErythrocyte distribution width Auto (RBC) [Ratio]Ordered By: Julio C Ramirez on 93-91-4109Wlvpxcohrvc distribution width (RBC) [Ratio]15.9 % 12.0-14.8[facility] HospitalGlucose [Mass/volume] in Serum or PlasmaOrdered By: Julio C Ramirez on 18-06-4693Gmrjojs [Mass/Vol]103 mg/xJ52-073 [facility] HospitalComment on above:ADA recommended reference rangeRandom Glucose Reference Range is dependent on time and content of last meal. Glucose of more than 200 mg/dL in a nonstressed, ambulatory subject supports the diagnosisof Diabetes Mellitus.Hematocrit Auto (Bld) [Volume fraction]Ordered By: Julio C Ramirez on 29-70-4145Emmsmojbvq (Bld) [Volume fraction]39.9 %38.8-50.0[facility] HospitalHemoglobin [Mass/volume] in BloodOrdered By: Julio C Ramirez on 26-86-2275Zdchysmeti (Bld) [Mass/Vol]13.4 g/dL13.0-17.0[facility] HospitalINR in Platelet poor plasma by Coagulation assayOrdered By: Julio C Ramirez on 80-42-9808FNA Coag (PPP) [Relative time]1.9 {INR}[facility] HospitalComment on above: INR Therapeutic Range A) Pre- and Peroperative OAT started two weeks before surgery. NOT HIP SURGERY: 1.5 - 2.5 HIP SURGERY: 2 - 3B) Primary and secondary prevention of venous THROMBOSIS: 2 - 3C) Active venous thrombosis, pulmonary embolismand prevention of recurrent venous thrombosis: 2 - 3D) Prevention of arterial thromboembolismincluding patients with mechanical heart valves: 3 - 4.5 Leukocytes [#/volume] corrected for nucleated erythrocytes in Blood by Automated counOrdered By: Julio C Ramirez on 57-97-7085NGG corrected for nucl RBC Auto (Bld) [#/Vol]5.7 10*3/uL4.1-10.5FSt. Anthony's HospitalLymphocytes Auto (Bld) [#/Vol]Ordered By: Julio C Ramirez on 35-48-7403Nyudrnfjjtz (Bld) [#/Vol]1.5 10*3/uL1.00-4.8[facility] HospitalLymphocytes/100 WBC Auto (Bld) Ordered By: Julio C Ramirez on 05-82-3335Ronhwnaevgh/100 WBC (Bld)25.5 %.[facility] Auto (RBC) [Entitic mass]Ordered By: Julio C Ramirez on 04-64-4278HWW (RBC) [Entitic mass]29.6 pg27.5-35.2FSt. Anthony's HospitalMCHC Auto (RBC) [Mass/Vol]Ordered By: Julio C Ramirez on 10-91-4952RKEM (RBC) [Mass/Vol]33.6 g/dL32.5-35.6FSt. Anthony's HospitalMCV Auto (RBC) [Entitic vol]Ordered By: Julio C Ramirez on 24-23-9529FAP (RBC) [Entitic vol]88.1 fL83.5-101[facility] HospitalMonocytes Auto (Bld) [#/Vol]Ordered By: Julio C Ramirez on 90-13-2129Nbnxizcrz (Bld) [#/Vol]0.6 10*3/uL0.0-0.8[facility] HospitalMonocytes/100 WBC Auto (Bld)Ordered By: Julio C Ramirez on 26-53-6164Fwqoaffql/100 WBC (Bld)10.9 %.[facility] Neutrophils Auto (Bld) [#/Vol]Ordered By: Julio C Ramirez on 64-65-5217Qsksdnuhzhp (Bld) [#/Vol]3.5 10*3/uL1.8-7.7FSt. Anthony's HospitalNeutrophils/100 WBC Auto (Bld)Ordered By: Julio C Ramirez on 84-28-1995Iocxvttlzmk/100 WBC (Bld) 60.9 %.[facility] HospitalNo Panel InformationOrdered By: Julio C Ramirez on 71-14-3051Qqwjybslx GFR (CKD-EPI)> 60.0 mL/MinMercy Health Lorain HospitalPharmacy Creatinine Clearance (ChemN/AFSt. Anthony's Hospital Nucleated erythrocytes [Presence] in Blood by Automated countOrdered By: Julio C Ramirez on 03-65-0101Cwxguueje RBC Auto Ql (Bld)0.1 /100{WBC}0-0.5FSt. Anthony's HospitalPlatelet mean volume Auto (Bld) [Entitic vol]Ordered By: Julio C Ramirez on 38-84-1442Yctxjvdi mean volume (Bld) [Entitic vol]8.3 fL6.6-10.1 [facility] HospitalPlatelets Auto (Bld) [#/Vol]Ordered By: Julio C Ramirez on 22-72-5923Ccyqvbrht (Bld) [#/Vol]175 10*3/aO286-591QisbcrzjlMercy Health Lorain HospitalPotassium [Moles/volume] in Serum or PlasmaOrdered By: Julio C Ramirez on 00-93-8393Udddopogd [Moles/Vol]4.4 mmol/L3.5-5.1FSt. Anthony's HospitalProthrombin time (PT)Ordered By: Julio C Ramirez on 67-02-3917HV Coag (PPP) [Time]22.4 s9.0-12.9[facility] HospitalComment on above:A hematocrit value greater than 55% may lead to inaccurate results in coagulation testing. Patientshaving hematocrit values >55% require a special collection tube for coagulation studies. Please contact the laboratory at [phone] for redraw instructions.RBC Auto (Bld) [#/Vol]Ordered By: Julio C Ramirez on 04-02-2023 RBC (Bld) [#/Vol]4.53 10*6/uL3.90-5.60[facility] Hospitalerum or plasma anion gap determinationOrdered By: Julio C Ramirez on 64-94-7291Kwuzo gap [Moles/Vol]12.3 mmol/L6.0-15.0[facility] Hospitalodium [Moles/volume] in Serum or PlasmaOrdered By: Julio C Ramirez on 23-59-0002Xcnasl [Moles/Vol]140 mmol/H019-080PsyeyvgunMercy Health Lorain HospitalUrea nitrogen [Mass/volume] in Serum or PlasmaOrdered By: Julio C Ramirez on 40-27-5100Mbdy nitrogen [Mass/Vol]27 mg/dL7-25[facility] HospitalWBC Auto (Bld) [#/Vol]Ordered By: Julio C Ramirez on 62-43-9303VNV (Bld) [#/Vol]5.7 10*3/uL 4.1-10.5FSt. Anthony's HospitalOffice Visit (Cardiology)on 02-24-2023 Follow-up visitDiagnoses/Problems Assessed Nonrheumatic aortic valve stenosis (424.1) (I35.0) [...] Echocardiogram; Status:Hold For - Scheduling,Retrospective Authorization; Requested for:[id number]; SocHx: Former smoker Tobacco Use Screening; Status:Complete; [...] at the time of your visit. Echo [facility] meds Retrieve [facility] Follow up in 1 year. Chief Complaint [...] His examination is unremarkable for irregular rhythm. Assessment/recommendations: 1?history of severe aortic stenosis status post TAVR 2019 at [facility]. Follow-up echocardiogram is scheduled. Currently asymptomatic from that standpoint. 2?moderate pulmonary hypertension, echocardiogram February 2022 RVSP 50 mmHg, currently no dyspneaand no edema. Will monitor, I explained to the patient the physiology of pulmonary hypertension andpotential symptoms. 3?permanent atrial fibrillation on chronic Coumadin [...] ONE TABLET BY MOUTH DAILY DIRECTED PER [facility] Patient did not bring medication [...] feeling tired. Cardiovascular: no (more content not included)...NormalUH TouchworksTobacco Screening.on 76-60-1913Hjuoy depression screening assessmentNo-[facility] [employer] [address] DO Work Phone: Fall risk assessmenta) No falls within the last year -[facility] [address] DO Work Phone: Tobacco use status CPHSb) NoM-[facility] [employer] [address] DO Work Phone: Activated partial thromboplastin time (aPTT) in platelet poor plasma by coagulation aOrdered By: Gely Lin on 01-19-2023 aPTT Coag (PPP) [Time]32.8 s25.1-36.5FSt. Anthony's HospitalBacterial blood cultureOrdered By: Gely Lin on 38-51-2416Hpjcxpae identified Cx Nom (Bld)NO GROWTH [address] Anne HospitalBasophils Auto (Bld) [#/Vol]Ordered By: Gely Lin on 11-16-3994Xnnmujpfh (Bld) [#/Vol]0.0 10*3/uL0.0-0.2FSt. Anthony's HospitalBasophils/100 WBC Auto (Bld) Ordered By: Gely Lin on 20-11-0605Aaljhauce/100 WBC (Bld)0.4 %.[facility] HospitalCalcium [Mass/volume] in Serum or PlasmaOrdered By: Gely Lin on 00-15-2571Zpffjhf [Mass/Vol]9.0 mg/dL8.6-10.3FSt. Anthony's HospitalCarbon dioxide, total [Moles/volume] in Serum or Plasma Ordered By: Gely Lin on 20-46-3706VP3 [Moles/Vol]26.5 mmol/L21.0-31.0 [facility] HospitalChloride [Moles/volume] in Serum or Plasma Ordered By: Gely Lin on 34-68-7681Anfschdf [Moles/Vol]100 mmol/L98-107 [facility] HospitalCreatinine [Mass/volume] in Serum or Plasma Ordered By: Gely Lin on 05-11-6767Vpzmskkpai [Mass/Vol]1.09 mg/dL 0.70-1.30[facility] HospitalEosinophils Auto (Bld) [#/Vol]Ordered By: Gely Lin on 34-17-4877Ljlzylyiccp (Bld) [#/Vol]0.2 10*3/uL0.0-0.45 [facility] HospitalEosinophils/100 WBC Auto (Bld)Ordered By: Gely Lin on 40-76-3885Baxhswtoeqz/100 WBC (Bld)2.7 %.[facility] HospitalErythrocyte distribution width Auto (RBC) [Ratio]Ordered By: Gely Lin on 67-53-5420Dyziavsondb distribution width (RBC) [Ratio]14.9 % 12.0-14.8[facility] HospitalGlucose [Mass/volume] in Serum or PlasmaOrdered By: Gely Lin on 82-22-7756Gsfvoqb [Mass/Vol]103 mg/vH80-012 [facility] HospitalComment on above:ADA recommended reference rangeRandom Glucose Reference Range is dependent on time and content of last meal. Glucose of more than 200 mg/dL in a nonstressed, ambulatory subject supports the diagnosisof Diabetes Mellitus.Hematocrit Auto (Bld) [Volume fraction]Ordered By: Gely Lin on 92-32-7732Pnzyswdbax (Bld) [Volume fraction]37.8 %38.8-50.0[facility] HospitalHemoglobin [Mass/volume] in BloodOrdered By: Gely Lin on 09-31-3723Xbckaykgeq (Bld) [Mass/Vol]12.5 g/dL13.0-17.0[facility] HospitalLaboratory - CoagulationOrdered By: Gely Lin on 94-66-3710CL Coag (PPP) [Time]14.7 s 9.0-12.9[facility] HospitalLactate [Moles/volume] in Serum or PlasmaOrdered By: Gely Lin on 71-47-6973Bfftlbx [Moles/Vol]1.6 mmol/L 0.5-2.2FSt. Anthony's HospitalLeukocytes [#/volume] corrected for nucleated erythrocytes in Blood by Automated counOrdered By: Gely Lin on 51-46-9324ZLW corrected for nucl RBC Auto (Bld) [#/Vol]5.6 10*3/uL4.1-10.5 [facility] HospitalLymphocytes Auto (Bld) [#/Vol]Ordered By: Gely Lin on 00-03-0741Rejoucbdvgk (Bld) [#/Vol]0.6 10*3/uL1.00-4.8 [facility] HospitalLymphocytes/100 WBC Auto (Bld)Ordered By: Gely Lin on 42-83-4185Huajdimxnoj/100 WBC (Bld)10.2 %.[facility] Auto (RBC) [Entitic mass]Ordered By: Gely Lin on 26-54-2944FBV (RBC) [Entitic mass]28.7 pg27.5-35.2FSelect Medical Specialty Hospital - TrumbullHC Auto (RBC) [Mass/Vol]Ordered By: Gely Lin on 41-17-6416FGKT (RBC) [Mass/Vol]33.0 g/dL32.5-35.6FSt. Anthony's HospitalMCV Auto (RBC) [Entitic vol]Ordered By: Gely Lin on 96-44-0232NKJ (RBC) [Entitic vol]87.0 fL83.5-101[facility] HospitalMonocyte distribution width [Entitic volume] in Blood by AutomatedOrdered By: Gely Lin on 01-19-2023 Monocyte distribution width Auto (Bld) [Entitic vol]25.73 %0.00-20.00[facility] HospitalComment on above:For adults in ED, MDW > 20.0 may be associated with a higher risk of sepsis during the first 12 hrs of hospital admissionMonocytes Auto (Bld) [#/Vol]Ordered By: Gely Lin on 01-19-2023 Monocytes (Bld) [#/Vol]0.6 10*3/uL0.0-0.8[facility] Monocytes/100 WBC Auto (Bld)Ordered By: Gley Lin on 01-19-2023 Monocytes/100 WBC (Bld)10.1 %.[facility] HospitalNeutrophils Auto (Bld) [#/Vol]Ordered By: Gely Lin on 33-16-2774Lgapmkwnheo (Bld) [#/Vol] 4.3 10*3/uL1.8-7.7FSt. Anthony's HospitalNeutrophils/100 WBC Auto (Bld)Ordered By: Gely Lin on 65-92-0909Dflwtisqqcv/100 WBC (Bld)76.6 %. [facility] HospitalNo Panel InformationOrdered By: Gely Lin on 73-20-6382Hgavzbqbd GFR (CKD-EPI)> 60.0 mL/MinMercy Health Lorain HospitalPharmacy Creatinine Clearance (Chem48.65[facility] Nucleated erythrocytes [Presence] in Blood by Automated countOrdered By: Gely Lin on 57-04-4944Xfzapctgd RBC Auto Ql (Bld)0.0 /100{WBC}0-0.5 [facility] HospitalPlatelet mean volume Auto (Bld) [Entitic vol] Ordered By: Gely Lin on 54-46-4796Kebfgnuu mean volume (Bld) [Entitic vol]8.2 fL6.6-10.1FSt. Anthony's HospitalPlatelet poor plasma international normalized ratio (INR) by coagulation assay (relatOrdered By: Gely Lin on 03-89-0522NNQ Coag (PPP) [Relative time]1.3 {INR}[facility] HospitalComment on above:INR Therapeutic Range A) Pre- and Peroperative OAT started two weeks before surgery. NOT HIP SURGERY: 1.5 - 2.5 HIP SURGERY: 2 - 3B) Primary and secondary prevention of venous THROMBOSIS: 2 - 3C) Active venous thrombosis, pulmonary embolismand prevention of recurrent venous thrombosis: 2 - 3D) Prevention of arterial thromboembolismincluding patients with mechanical heart valves: 3 - 4.5Platelets Auto (Bld) [#/Vol] Ordered By: Gely Lin on 08-88-5536Btwiulspw (Bld) [#/Vol]202 10*3/uL 150-450[facility] HospitalPotassium [Moles/volume] in Serum or PlasmaOrdered By: Gely Lin on 61-33-4552Llebmjgkn [Moles/Vol]3.6 mmol/L 3.5-5.1FSt. Anthony's HospitalRBC Auto (Bld) [#/Vol]Ordered By: Gely Lin on 04-12-8193JGF (Bld) [#/Vol]4.35 10*6/uL3.90-5.60[facility] Hospitalerum or plasma anion gap determinationOrdered By: Gely Lin on 31-53-1108Xvqeq gap [Moles/Vol]13.1 mmol/L6.0-15.0[facility] Hospitalodium [Moles/volume] in Serum or PlasmaOrdered By: Gely Lin on 68-72-0055Ivzdmy [Moles/Vol]136 mmol/K632-844AwncyjwzaMercy Health Lorain HospitalUrea nitrogen [Mass/volume] in Serum or PlasmaOrdered By: Gely Lin on 04-01-0274Opsz nitrogen [Mass/Vol]22 mg/dL7-25[facility] HospitalWBC Auto (Bld) [#/Vol]Ordered By: Gely Lin on 03-72-2355LDC (Bld) [#/Vol]5.6 10*3/uL4.1-10.5FSt. Anthony's Hospital Creatinine (Bld) [Mass/Vol]Ordered By: María Anderson on 30-46-8494Ekwqgpfmbk [Mass/Vol]1.0 mg/dL0.6-1.3FSt. Anthony's HospitalComment on above: ER/ESD physician is notified/shown all ISTAT results.Critical values may be confirmed by laboratorytesting ifdeemed necessary by ER attending doctor.Alanine aminotransferase [Enzymatic activity/volume] in Serum or PlasmaOrdered By: Trey العلي on 04-03-1862DDD [Catalytic activity/Vol]16 U/L7-52[facility] HospitalAlbumin [Mass/volume] in Serum or Plasma by Bromocresol green (BCG) dye binding methoOrdered By: Trey العلي on 85-78-4522Eqimucd BCG dye [Mass/Vol]3.9 g/dL3.5-5.7FSt. Anthony's HospitalAlkaline phosphatase [Enzymatic activity/volume] in Serum or PlasmaOrdered By: Trey العلي on 88-17-2107XBE [Catalytic activity/Vol]81 U/N28-411SyazbkyaaMercy Health Lorain HospitalAspartate aminotransferase [Enzymatic activity/volume] in Serum or PlasmaOrdered By: Trey العلي on 42-77-6987TEI [Catalytic activity/Vol]26 U/L 13-39[facility] HospitalBasophils Auto (Bld) [#/Vol]Ordered By: Trey العلي on 66-27-4128Ssfvsophg (Bld) [#/Vol]0.0 10*3/uL0.0-0.2FSt. Anthony's HospitalBasophils/100 WBC Auto (Bld)Ordered By: Trey العلي on 00-58-8368Vpqdpucnj/100 WBC (Bld)0.7 %.[facility] Bilirubin.total [Mass/volume] in Serum or PlasmaOrdered By: Trey العلي on 75-95-5642Vmafbzjvn [Mass/Vol]0.5 mg/dL0.3-1.0[facility] Calcium [Mass/volume] in Serum or PlasmaOrdered By: Trey العلي on 10-28-2022 Calcium [Mass/Vol]9.0 mg/dL8.6-10.3FSt. Anthony's HospitalCarbon dioxide, total [Moles/volume] in Serum or PlasmaOrdered By: Trey العلي on 93-48-4648KZ5 [Moles/Vol]27.2 mmol/L21.0-31.0[facility] Chloride [Moles/volume] in Serum or PlasmaOrdered By: Trey العلي on 56-19-9891Xjmbiuix [Moles/Vol]106 mmol/W65-387AfdjbpiyrMercy Health Lorain Hospital Cholesterol [Mass/volume] in Serum or PlasmaOrdered By: Trey العلي on 34-05-1876Vprcyrgyrje [Mass/Vol]160 mg/gM292-616QbojlhoykMercy Health Lorain HospitalComment on above:Chol less than 200 mg/dl low riskChol 201-239 mg/dl borderline riskChol 240 mg/dl and greater high riskCholesterol in LDL Calc [Mass/Vol]Ordered By: Trey العلي on 42-68-7348Uznqlvtohnm in LDL [Mass/Vol] 82 mg/dL0-100[facility] HospitalComment on above:LDL ATP III CLASSIFICATIONLDL less than 100 mg/dL OptimalLDL 100-129 mg/dL Near or above qfwebplPTO203-163 mg/dL Borderline highLDL 160-189 mg/dL HighLDL greater than 189 mg/dL Very highCholesterol in VLDL Calc [Mass/Vol]Ordered By: Trey العلي on 49-55-3206Gekirialjwz in VLDL [Mass/Vol]14 mg/dLMercy Health Lorain HospitalCreatinine [Mass/volume] in Serum or PlasmaOrdered By: Trey العلي on 87-31-3257Xxyrbmygvh [Mass/Vol]0.96 mg/dL0.70-1.30[facility] HospitalEosinophils Auto (Bld) [#/Vol]Ordered By: Trey العلي on 10-28-2022 Eosinophils (Bld) [#/Vol]0.1 10*3/uL0.0-0.45[facility] Eosinophils/100 WBC Auto (Bld)Ordered By: Trey العلي on 10-28-2022 Eosinophils/100 WBC (Bld)2.2 %.[facility] HospitalErythrocyte distribution width Auto (RBC) [Ratio]Ordered By: Trey العلي on 10-28-2022 Erythrocyte distribution width (RBC) [Ratio]14.6 %12.0-14.8[facility] HospitalGlobulin Calc (S) [Mass/Vol]Ordered By: Trey العلي on 99-29-0222Wrpurrsa (S) [Mass/Vol]2.8 g/dLMercy Health Lorain Hospital Glucose [Mass/volume] in Serum or PlasmaOrdered By: Trey العلي on 10-28-2022 Glucose [Mass/Vol]109 mg/yR27-296PlhleteznMercy Health Lorain HospitalComment on above:ADA recommended reference rangeRandom Glucose Reference Range is dependent on time and content of last meal. Glucose of more than 200 mg/dL in a nonstressed, ambulatory subject supports the diagnosisof Diabetes Mellitus. Glucose mean value [Mass/volume] in Blood Estimated from glycated hemoglobin Ordered By: Trey اللعي on 32-67-0406Mxernoo glucose Estimated from glycated hemoglobin (Bld) [Mass/Vol]120 mg/dLMercy Health Lorain HospitalHematocrit Auto (Bld) [Volume fraction]Ordered By: Trey العلي on 98-57-6808Utsiopzfjj (Bld) [Volume fraction]37.7 %38.8-50.0[facility] Hemoglobin A1c percentageOrdered By: Trey العلي on 28-71-7819EuQ9q (Bld) [Mass fraction]5.8 %4.3-5.6FSt. Anthony's HospitalComment on above: Increased risk for diabetes: 5.7 - 6.4diabetes: >6.4glycemic control for adults with diabetes: <7.0Hemoglobin [Mass/volume] in BloodOrdered By: Trey العلي on 78-06-7400Rvvhanecwe (Bld) [Mass/Vol]12.5 g/dL13.0-17.0[facility] HospitalLeukocytes [#/volume] corrected for nucleated erythrocytes in Blood by Automated counOrdered By: Trey العلي on 10-28-2022 WBC corrected for nucl RBC Auto (Bld) [#/Vol]5.1 10*3/uL4.1-10.5FSt. Anthony's HospitalLymphocytes Auto (Bld) [#/Vol]Ordered By: Trey العلي on 34-15-6549Ienohdcafdu (Bld) [#/Vol]1.2 10*3/uL1.00-4.8[facility] HospitalLymphocytes/100 WBC Auto (Bld)Ordered By: Trey العلي on 86-55-3611Jxerhzsxlgd/100 WBC (Bld)23.6 %.[facility] HospitalMCH Auto (RBC) [Entitic mass]Ordered By: Trey العلي on 64-80-2095ZFY (RBC) [Entitic mass]29.6 pg27.5-35.2FSt. Anthony's HospitalMCHC Auto (RBC) [Mass/Vol]Ordered By: Trey العلي on 02-80-6627YJBO (RBC) [Mass/Vol]33.2 g/dL 32.5-35.6FSt. Anthony's HospitalMCV Auto (RBC) [Entitic vol]Ordered By: Trey العلي on 53-88-4951YRZ (RBC) [Entitic vol]89.1 fL83.5-101[facility] HospitalMonocytes Auto (Bld) [#/Vol]Ordered By: Trey العلي on 58-20-7981Owylzqevb (Bld) [#/Vol]0.7 10*3/uL0.0-0.8[facility] HospitalMonocytes/100 WBC Auto (Bld)Ordered By: Trey العلي on 10-28-2022 Monocytes/100 WBC (Bld)14.3 %.[facility] HospitalNeutrophils Auto (Bld) [#/Vol]Ordered By: Trey العلي on 75-23-5889Bdvxfpfhdpj (Bld) [#/Vol] 3.0 10*3/uL1.8-7.7FSt. Anthony's HospitalNeutrophils/100 WBC Auto (Bld)Ordered By: Trey العلي on 97-23-0980Irutteptwbs/100 WBC (Bld)59.2 %. [facility] HospitalNo Panel InformationOrdered By: Trey العلي on 68-99-2518Kdckdcenv GFR (CKD-EPI)> 60.0 mL/MinMercy Health Lorain HospitalPharmacy Creatinine Clearance (ChemN/[facility] Nucleated erythrocytes [Presence] in Blood by Automated countOrdered By: Trey العلي on 09-98-2755Gzziuyydq RBC Auto Ql (Bld)0.0 /100{WBC}0-0.5FSt. Anthony's HospitalPlatelet mean volume Auto (Bld) [Entitic vol]Ordered By: Trey العلي on 94-48-9933Hzhoojqa mean volume (Bld) [Entitic vol]8.5 fL 6.6-10.1FSt. Anthony's HospitalPlatelets Auto (Bld) [#/Vol]Ordered By: Trey العلي on 02-82-9322Egfdhxrqp (Bld) [#/Vol]160 10*3/qD904-228NytvlmruaMercy Health Lorain HospitalPotassium [Moles/volume] in Serum or PlasmaOrdered By: Trey العلي on 87-95-1383Udqxvphhu [Moles/Vol]4.2 mmol/L3.5-5.1FSt. Anthony's HospitalProtein [Mass/volume] in Serum or PlasmaOrdered By: Trey العلي on 33-44-8794Yuxvrcc [Mass/Vol]6.7 g/dL6.4-8.9[facility] HospitalRBC Auto (Bld) [#/Vol]Ordered By: Trey العلي on 02-04-5162PMD (Bld) [#/Vol]4.23 10*6/uL3.90-5.60[facility] Hospitalerum or plasma albumin/globulin mass ratioOrdered By: Trey العلي on 10-28-2022 Albumin/Globulin [Mass ratio]1.4 {ratio}[facility] Hospitalerum or plasma anion gap determinationOrdered By: Trey العلي on 69-91-5871Urwyf gap [Moles/Vol]13.0 mmol/L6.0-15.0[facility] Hospitalerum or plasma high density lipoprotein (HDL) cholesterol measurementOrdered By: Trey العلي on 95-86-4671Xndzgqlsauo in HDL [Mass/Vol]64 mg/tZ20-21RbrtsivypMercy Health Lorain HospitalComment on above:HDL CHOL ATP-III CLASSIFICATION Cardiovascular RiskHDL > or equal to 60 mg/dL LOWHDL < 40 mg/dL HIGHSerum or plasma total cholesterol/high density lipoprotein (HDL) cholesterol mass rat Ordered By: Trey العلي on 53-70-5702Kuttkxktrtv.total/Cholesterol in HDL [Mass ratio]2.5 {ratio}<5.0[facility] Hospitalodium [Moles/volume] in Serum or PlasmaOrdered By: Trey العلي on 31-86-7958Cxuxap [Moles/Vol]142 mmol/M316-664ZrsbxxeexMercy Health Lorain HospitalTriglyceride [Mass/volume] in Serum or PlasmaOrdered By: Trey العلي on 10-28-2022 Triglyceride [Mass/Vol]70 mg/dL0-149[facility] HospitalComment on above:TRIG ATP III CLASSIFICATIONTRIG less than 150 mg/dL NormalTRIG 150-199 mg/dL Borderline highTRIG 200-500 mg/dL High TRIG greater than 500 mg/dL Very highStandard traceable to the Center for Disease Conrtrol and Prevention (CDC) test method.Urate [Mass/volume] in Serum or PlasmaOrdered By: Trey العلي on 02-74-3791Ivwnc [Mass/Vol]7.5 mg/dL2.4-7.6FSt. Anthony's HospitalUrea nitrogen [Mass/volume] in Serum or PlasmaOrdered By: Trey العلي on 41-59-3252Xrsy nitrogen [Mass/Vol]24 mg/dL7-25[facility] WBC Auto (Bld) [#/Vol]Ordered By: Trey العلي on 74-91-7732OGJ (Bld) [#/Vol] 5.1 10*3/uL4.1-10.5FSt. Anthony's HospitalBNPon 07-52-1153Xqcwlwpxumj peptide B (Bld) [Mass/Vol]1354.0 pg/mLNormal<=1,800.0[facility] Comment on above:Performed By: #### HSTROPN, BNP, CK, CMP #### [facility] [address] [place], [place] [address] Dr. Pedro Brizuela AUTO DIFFon 01-52-8191ECYX #0.0 103/ulNormal0.0-0.1The St. [facility]'S HospitalComment on above:Performed By: #### CBC ####[facility] [address] [place], [place] [address]CvDr.Yilan Morgansophils/100 WBC (Bld)0.8 %Normal0.2-2.0The [facility]'S HospitalComment on above:Performed By: #### CBC ####[facility] Xckixcuduj[address] [place], [place] [address]Dr.Pedro ChangEO #0.1 103/ulNormal0.0-0.7The [facility]'S HospitalComment on above:Performed By: #### CBC ####[facility] K[address]qm[address] [place], [place] [address]Dr.Pedro ChangEosinophils/100 WBC (Bld)1.7 %Normal 0.9-7.0The [facility]'S HospitalComment on above:Performed By: #### CBC ####[facility] Siyuukcbcc[address] [place], [place] [address]Dr.Charoaki Degroot Erythrocyte distribution width (RBC) [Ratio]14.1 %Bqbgpb77.0-15.0The [facility]'S HospitalComment on above:Performed By: #### CBC ####[facility] Qerjbjyoge[address] [place], [place] [address]Dr.Charoaki ChangHematocrit (Bld) [Volume fraction]40.0 %Critically low42.0-54.0The [facility]'S HospitalComment on above:Performed By: #### CBC ####[facility] [address]kad[address]miu[address] [place], [place] [address]Dr.Charoaki ChangHemoglobin (Bld) [Mass/Vol]12.7 g/dL Critically low14.0-18.0The [facility]'S HospitalComment on above:Performed By: #### CBC ####[facility] Ejqwxbvnfp[address] [place], [place] [address]Dr. Pedro ChangIG #0.06 10e3/ulCritically high0.00-0.03The [facility]S HospitalComment on above:Performed By: #### CBC ####[facility] Ybevmtognc[address] [place], [place] [address]Dr.Pedro ChangIG %1.2 %Critically high0.0-0.5The [facility]S HospitalComment on above:Performed By: #### CBC ####[facility] Wdgspkcama[address] [place], [place] [address]Dr.Charoaki ChangLYMPH #0.9 103/ulCritically low1.2-3.8The Sarai HospitalComment on above:Performed By: #### CBC ####[facility] [address] [place] [address]Dr.Pedro DegrootLymphocytes/100 WBC (Bld)17.6 %Critically low20.5-60.0The [facility]S HospitalComment on above:Performed By: #### CBC ####[facility] Gvbbsrpdjy[address] [place], [place] [address]Dr.Charoaki DegrootMANUAL DIFF REQ NONormalThe St. Rita'S HospitalComment on above:Performed By: #### CBC ####[facility] Kngrbchycs[address] [place], [place] [address]Dr. Charoaki DegrootH (RBC) [Entitic mass]29.[address] rmYqplth54.9-34.0The [facility] Comment on above:Performed By: #### CBC ####[facility] Ebrtdfngef[address] [place], [place] [address]Dr.Pedro DegrootMCHC (RBC) [Mass/Vol]31.8 g/dL Xumkil57.9-35.2The [facility]'S HospitalComment on above:Performed By: #### CBC ####[facility] Nqejwfqnyu[address] [place], [place] [address]Dr. Pedro DegrootV (RBC) [Entitic vol]91.5 [address]gyswu36.0-94.0The [facility] Comment on above:Performed By: #### CBC ####[facility] Zwcjftlstv[address] [place], [place] [address]Dr.Pedro DegrootMONO #0.7 103/ulNormal0.3-0.[address] [facility]'S HospitalComment on above:Performed By: #### CBC ####[facility] Qumwtbvulm[address] [place], [place] [address]Dr.Charoaki Degroot Monocytes/100 WBC (Bld)12.6 %Critically high1.7-12.0The [facility]S HospitalComment on above:Performed By: #### CBC ####[facility] Aqpmztphgm[address] [place], [place] [address]Dr.Pedro DegrootNEUT #3.4 103/ulNormal1.4-6.5The [facility]S HospitalComment on above:Performed By: #### CBC ####[facility] [address] [place] [address]Dr.Pedro DegrootNeutrophils/100 WBC (Bld)66.1 %Utojfn87.0-75.0The [facility]'S HospitalComment on above:Performed By: #### CBC ####[facility] Ubslmjgroi[address] [place], [place] [address]Dr.Charoaki ZanePlatelet mean volume (Bld) [Entitic vol]10.8 fLNormal9.5-13.[address] [facility]S HospitalComment on above:Performed By: #### CBC ####[facility] Akjdregcnv[address] [place], [place] [address]Dr.Pedro DegrootPLT170 103/efRvpnrh421-487Tyu St. [facility]'S HospitalComment on above:Performed By: #### CBC ####[facility] Htbpjxvgou[address] [place], [place] [address]Dr. Charoaki ZaneRBC4.37 106/ulCritically low4.70-6.10The [facility]S HospitalComment on above:Performed By: #### CBC ####[facility] [address]xs[address]wvs[address] [place], [place] [address]Dr.Pedro DegrootWBC5.2 103/ulNormal4.0-11.0The [facility]'S HospitalComment on above:Performed By: #### CBC ####[facility] Fvpibvusmt[address] [place], [place] [address]Dr.Charoaki DegrootCPKon 75-06-9510ZF [Catalytic activity/Vol]89 U/MMfogso48-788Jid [facility] Comment on above:Performed By: #### HSTROPN, BNP, CK, CMP ####[facility] Cyeejku[address] [place], [place] [address]Dr. Charoaki DegrootCT STROKE HEAD WOon 54-04-5655PM STROKE HEAD WOTITLE: CT STROKE HEAD WO COMPARISON: None. CLINICAL [...] Electronically authenticated by: KATHLEEN MATHIS Date: 2022-10-08 14:12NormC[facility] VENOUS BLOODon 36-50-0231QGX1 VDQMTQ04.9 hfVvPtpzga87.0-52.[address] [facility]S HospitalComment on above:Performed By: #### PHVEN #### [facility] [address] [place] [address] Dr. Pedro Gonzalez VENOUS7.476Ksnjmj3.330-7.430The St[facility]'S HospitalComment on above:Performed By: #### PHVEN #### [facility] [address] [place] [address] Dr. Pedro DegrootSANDUSKY OF CARE GLUCOSEon 76-85-3269Ylrgenn [Mass/Vol]106 mg/dL Crflld41-677Ajc St. [facility]'S HospitalComment on above:Performed By: #### POCGLUC #### [facility] [address] [place] [address] Dr. Pedro DegrootPROF 14(COMP METB)on 89-19-0387Xbfwrmr [Mass/Vol]3.7 g/dLNormal 3.4-5.0The [facility]S HospitalComment on above:Performed By: #### HSTROPN, BNP, CK, CMP #### [facility] [address] [place] [address] Dr. Pedro DegrootAlbumin/Globulin [Mass ratio]0.9 {ratio}NormalThe [facility]Health Parma Medical Centerment on above:Performed By: #### HSTROPN, BNP, CK, CMP #### [facility] [address] [place] [address] [address] Pedro Armstrong [Catalytic activity/Vol]99 U/PYavest02-180Hnj St. [facility]'S HospitalComment on above:Performed By: #### HSTROPN, BNP, CK, CMP #### [facility] [address] [place] [address] [address] Pedro Wang [Catalytic activity/Vol]30 U/TPccbsp00-98Lkh [facility] HospitalComment on above:Performed By: #### HSTROPN, BNP, CK, CMP #### [facility] [address] [place] [address] Dr. Pedro Dorsey gap [Moles/Vol]13.6 mmol/LNormalThe [facility] Comment on above:Performed By: #### HSTROPN, BNP, CK, CMP #### [facility] [address] [place] [address] Dr. Pedro Espinal [Catalytic activity/Vol]35 U/[id number] [facility] HospitalComment on above:Performed By: #### HSTROPN, BNP, CK, CMP #### [facility] [address] [place] [address] Dr. Pedro DegrootBilirubin [Mass/Vol]0.4 mg/dLNormal0.2-1.0The [facility] Comment on above:Performed By: #### HSTROPN, BNP, CK, CMP #### [facility] [address] [place] [address] Dr. Pedro DegrootCalcium [Mass/Vol]9.7 mg/dLNormal8.5-10.1[facility] Comment on above:Performed By: #### HSTROPN, BNP, CK, CMP #### [facility] [address] [place] [address] Dr. Pedro DegrootChloride [Moles/Vol]103 mmol/[id number] Valley Surgical Hospital Comment on above:Performed By: #### HSTROPN, BNP, CK, CMP #### [facility] [address] [place] [address] Dr. Pedro DegrootCO2 [Moles/Vol]27.8 mmol/EQkjsat23.0-32.0The [facility] Comment on above:Performed By: #### HSTROPN, BNP, CK, CMP #### [facility] [address] [address] [address] Pedro DegrootCreatinine [Mass/Vol]0.86 mg/dLNormal0.70-1.30The [facility] HospitalComment on above:Performed By: #### HSTROPN, BNP, CK, CMP #### [facility] [address] [address] [address] Pedro GrayGFR-AF MICRONESIAN>60Normal>=60The [facility] HospitalComment on above:Performed By: #### HSTROPN, BNP, CK, CMP #### [facility] [address] [place] [address] Dr. Pedro GrayGFR-NON AF MICRONESIAN>60Normal>=60The [facility] HospitalComment on above:Performed By: #### HSTROPN, BNP, CK, CMP #### [facility] [address] [address] [address] Pedro DegrootGlobulin (S) [Mass/Vol]4.2 g/dLNormalThe St. Rita'S HospitalComment on above:Performed By: #### HSTROPN, BNP, CK, CMP #### [facility] [address] [address] [address] Pedro DegrootGlucose [Mass/Vol]110 mg/dLCritically wvbo50-213Qjl [facility] Centerment on above:Performed By: #### HSTROPN, BNP, CK, CMP #### [facility] [address] [address] [address] Pedro DegrootPotassium [Moles/Vol]4.4 mmol/LNormal3.5-5.1The [facility] Comment on above:Performed By: #### HSTROPN, BNP, CK, CMP #### [facility] [address] [address] [address] Pedro DegrootProtein [Mass/Vol]7.9 g/dLNormal6.4-8.2The [facility] Comment on above:Performed By: #### HSTROPN, BNP, CK, CMP #### [facility] [address] [address] [address] Pedro DegrootSodium [Moles/Vol]140 mmol/QRcihns906-547Dwp [facility] Comment on above:Performed By: #### HSTROPN, BNP, CK, CMP #### [facility] [address] [place] [address] Dr. Pedro DegrootUrea nitrogen [Mass/Vol]27.0 mg/dLCritically high7.0-18.0The St[facility]'S HospitalComment on above:Performed By: #### HSTROPN, BNP, CK, CMP #### [facility] [address] [place] [address] Dr. Pedro Jimenez nitrogen/Creatinine [Mass ratio]31.4 mg/mgNoMercy Health St. Vincent Medical CenterComment on above:Performed By: #### HSTROPN, BNP, CK, CMP #### [facility] [address] [place] [address] Dr. Pedro Smith 43-20-7773VBW Coag (PPP) [Relative time]1.62 {INR} NormalOhio Valley Surgical HospitalComment on above:Performed By: #### PT #### [facility] [address] [place] [address] Dr. Pedro Godinez GUIDELINESSEE BELOWCleveland Clinic Marymount HospitalComment on above:Result Comment: DESIRED INR: 2.0 - 3.0 CONDITIONS NOT LISTED BELOW 2.5 - 3.5 FOR PROSTHETIC HEART VALVE REPLACEMENT 2.5 - 3.5 RECURRENT THROMBOSIS Performed By: #### PT #### [facility] [address] [place] [address] Dr. Pedro Solano Coag (PPP) [Time]16.7 sCritically high9.0-11.6The St[facility]'S HospitalComment on above:Performed By: #### PT #### [facility] [address] [place] [address] Dr. Pedro Mahoney, HIGH SENSITIVITYon 90-14-8570EBNCWN13.3 pg/mLNormal 4.0-76.1[facility] on above:Result Comment: CUT-OFF POINTS HAVE BEEN ESTABLISHED BASED ON THE FOURTH UNIVERSAL DEFINITIONS OF MYOCARDIAL INFARCTION. THE UPPER REFERENCE LIMIT (URL) OF TROPONIN, DEFINED THE 99TH PERCENTILE OF cTnI DISTRIBUTION IN A REFERENCE POPULATION, HAS BEEN CONFIRMED THE DECISION THRESHOLD FOR [place] DIAGNOSIS.Performed By: #### HSTROPN, BNP, CK, CMP #### [facility] [address] [address] [address] Pedro DegrootJEFF DAVIS H[facility] GLUCOSEon 99-98-1298Qfkntbc [Mass/Vol]111 mg/dL Critically hadz19-477Uif St[facility]'S HospitalComment on above:Performed By: #### POCGLUC ####[facility] [address] [address]Dr. Pedro DegrootPROTIMEon 78-73-0250MBO Coag (PPP) [Relative time]1.14 {INR} NormalSt. [facility] on above:Performed By: #### PT #### [facility] [address] [address] [address] Pedro Godinez GUIDELINESE [facility] on above:Result Comment: DESIRED INR: 2.0 - 3.0 CONDITIONS NOT LISTED BELOW 2.5 - 3.5 FOR PROSTHETIC HEART VALVE REPLACEMENT 2.5 - 3.5 RECURRENT THROMBOSIS Performed By: #### PT #### [facility] [address] [address] [address] Pedro DegrootPT Coag (PPP) [Time]12.2 sCritically high9.0-11.6[facility] on above:Performed By: #### PT #### [facility] [address] [address] [address] Pedro DegrootJEFF DAVIS HOSPITAL GLUCOSEon 85-56-1181Nibpnpj [Mass/Vol]104 mg/dL Qxclje63-677TbrGerman Hospitalment on above:Performed By: #### POCGLUC ####[facility] [address] [place], [place] [address]Fe. Pedro DegrootPROTIMEon 22-04-2279THD Coag (PPP) [Relative time]1.08 {INR}NormalThe St. [facility]'S HospitalComment on above:Performed By: #### PT ####[facility] [address] [place], [place] [address]Qj. Pedro DegrootINR GUIDELINES SEE BELOWNormalThe St. [facility]'S HospitalComment on above:Result Comment: DESIRED INR: 2.0 - 3.0 CONDITIONS NOT LISTED BELOW 2.5 - 3.5 FOR PROSTHETIC HEART VALVE REPLACEMENT 2.5 - 3.5 RECURRENT THROMBOSISPerformed By: #### PT ####[facility] [address] [id number]. Pedro DegrootPT Coag (PPP) [Time]11.6 sNormal9.0-11.6The St[facility]'S HospitalComment on above: Performed By: #### PT ####[facility] [address] [address]Dr. Pedro ChangXR Shoulder Complete Right*on 87-15-5108DK Shoulder Complete Right*HISTORY: Patient felt a pop in the shoulder [...] and signed by María Madison on 03/31/2022 1526NormalLakewood [facility] Medical SpecialistEchocardiogramon 59-77-9979RwjmvssxhrhadcdzAlczt[address], [address], [place] [address] TRANSTHORACIC ECHOCARDIOGRAM REPORT Patient Name: FANI Caldwell Physician: [id number] Bonita Kingsley MD, [facility] Study Date: 02/20/2022 Referring [id number] BONITA KINGSLEY Physician: MRN/PID: [id number] PCP: Fer العلي MD Accession/Order#: [id number] [facility] [place] Location: Date of : 1935 Fellow: Gender: M Nurse: Admit Date: Field Map Editor: Karly Lin RDCS, RVT Height: 175.26 cm CC Report to: Weight: 80.29 kg Study Type: Echocardiogram BSA: 1.96 m2 Blood Pressure: 152 /88 mmHg Diagnosis/ICD: 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 PHYSICIAN INTERPRETATION: Left Ventricle: Left ventricular systolic function is low normal, with an estimated ejection fraction of 50-55%. The left ventricular cavity size is mildly dilated. Left ventricular diastolic fillingwas not assessed. Left Atrium: The left atrium [...] mildly thickened. There is moderate mitral annular calcification.There is mild mitral valve regurgitation. Tricuspid Valve: [...] there has been no significant interval changes, patientremainsed in atrial fibrillation throughout the study. QUANTITATIVE [...] Mean P.0 mmHg (1.7-11.5mmHg) LVOT Max Nabeel: 0.68 m/s (<1.1m/s) AoV VTI: 40.30 cm [...] Max Nabeel: 0.8 m/s (0.6-0.9m/s) PV Max P.5 mmHg PIEDV: 1.87 m/s PADP: 16.9 mmHg [id number] Bonita Kingsley MD, FACC Electronically signed on 02/25/2022 at 5:39:24 PM Final NormalParkview Medical CenterTobacco Screening.on 11-45-4486Ktzkn depression screening assessmentNoHarborview Medical Center [employer] 250 DO Work Phone: Fall risk assessmenta) No falls within the last year [facility] 250 DO Work Phone: Tobacco use status CPHSb) NoM-[facility] 250 DO Work Phone: Bacteria identified Aer cx Nom (Unsp spec)Ordered By: Caren Pineda on 50-55-9368Snmlyoidthi Wound CultureProteus [facility] HospitalXR LSPINE W_OBLS AND FLEX_EXTon 21-85-1274BQ LSPINE W_OBLS AND FLEX_EXTEXAMINATION: XR LSPINE W_OBLS AND FLEX_EXT HISTORY: Low [...] Electronically authenticated by: ORLY WOLFE Date: 2022-01-02 17:00[facility] Screening.on 59-93-0275Lvni risk assessmentb) One or more falls in the last yearMP-[facility] [address] 250 DO Work Phone: Tobacco use status CPHSb) NoMP-[facility] [employer] 250 DO Work Phone: XR hip RT min 2V(w/wo pelvis)*on 82-21-5014UN hip RT min 2V(w/wo pelvis)*[facility] [employer] Other XR hip RT min 2V(w/wo pelvis)*[facility] [employer] Other XR hip RT min 2V(w/wo pelvis)*[address] [place] [address] [employer] Other XR hip RT min 2V(w/wo pelvis)*[place], [place] [address]Y[place] [employer] Other XR hip RT min 2V(w/wo pelvis)*[facility] [employer] Other XR hip RT min 2V(w/wo pelvis)*[facility] [employer] Other XR hip RT min 2V(w/wo pelvis)*Patient: Fani Chua MR#: [id number] Medical Other XR hip RT min 2V(w/wo pelvis)*: 1935 Acct:[id number] Medical Other XR hip RT min 2V(w/wo pelvis)*Age/Sex: 85 / M ADM Date: 03/19/21[facility] Other XR hip RT min 2V(w/wo pelvis)*Loc: SOXD Room: Type: [facility] Serious Parody Other XR hip RT min 2V(w/wo pelvis)*Attending Dr: Fani Johnston INLiquid Health Labs Other XR hip RT min 2V(w/wo pelvis)*Ordering Provider: Fani Johnston MDIn[employer]ative Acquisitions [employer] Other XR hip RT min 2V(w/wo pelvis)*Date of Service: 03/19/21[place] [employer] Other XR hip RT min 2V(w/wo pelvis)* XR/XR hip RT min 2V(w/wo pelvis)*: History of total replacement of [employer] Other XR hip RT min 2V(w/wo pelvis)*[facility] Other XR hip RT min 2V(w/wo pelvis)*Copies to: Fani Johnston MDIn[employer]ative Acquisitions [employer] Other XR hip RT min 2V(w/wo pelvis)*RIGHT HIP - 2 views: [employer] Other XR hip RT min 2V(w/wo pelvis)*CLINICAL HISTORY: Follow-up knee replacement.[employer] Other XR hip RT min 2V(w/wo pelvis)*COMPARISON: 01/30/2021 [employer] Other XR hip RT min 2V(w/wo pelvis)*AP and frog-lateral views were obtained. There is osteopenia. A hip prosthesis is again visualized. [employer] Other XR hip RT min 2V(w/wo pelvis)*The hardware appears intact and unchanged in prior. There is no developing fracture or dislocation. [employer] Other XR hip RT min 2V(w/wo pelvis)*There are no significant soft tissue abnormalities. Hemostasis clips are again visualized within the [employer] Other XR hip RT min 2V(w/wo pelvis)*pelvis and near the greater trochanter.[facility] Other XR hip RT min 2V(w/wo pelvis)* XR/XR hip RT min 2V(w/wo pelvis)*[employer] Other XR hip RT min 2V(w/wo pelvis)*IMPRESSION:[employer] Other XR hip RT min 2V(w/wo pelvis)*STABLE APPEARANCE OF HIP REPLACEMENT.[employer] Other XR hip RT min 2V(w/wo pelvis)*Impression dictated by: Cyn Llamas M.D.03/19/2021 12:46 [facility] [employer] Other XR hip RT min 2V(w/wo pelvis)*Dictation Location: [id number] [employer] Other XR hip RT min 2V(w/wo pelvis)*Transcribed By: HENRRY 03/19/21 [facility] Other XR hip RT min 2V(w/wo pelvis)*Dictated By: Cyn Llamas MD 03/19/21 [facility] Other XR hip RT min 2V(w/wo pelvis)*Signed By:[facility] [facility] Other XR hip RT min 2V(w/wo pelvis)*03/19/21 [facility] Other Complete Blood Count + Differentialon 02-24-2020 Basophils/100 WBC (Bld)0.7 %0.0 - 2.6WC-Zpwvhxpknt-[place]PStreetline [place] Work Phone: Erythrocyte distribution width (RBC) [Ratio]13.3 %See BryvnVK-Aekjzoiekk-TMY [facility] [address] [place] Work Phone: Comment on above:Reference Range: 11.5 - 14.5 Hematocrit (Bld) [Volume fraction]39.8 %below low thresholdSee Below UU-Vjmgysysmy-GGH [facility] [address] [place] Work Phone: [phone] on above:Reference Range: 41.0 - 52.0 Hemoglobin (Bld) [Mass/Vol]12.5 g/dLbelow low thresholdSee Below IA-Ihddoqwgbg-FET [facility] [address] [place] Work Phone: [phone] on above:Reference Range: 13.5 - 17.5 Lymphocytes/100 WBC (Bld)18.0 %See DlykaCX-Ebacbadszf-XUK [facility] [address] [place] Work Phone: [phone] on above:Reference Range: 13.0 - 44.0MCHC (RBC) [Mass/Vol]31.4 g/dLbelow low thresholdSee SvvhrNG-Vhznjjqgch-FJL [facility] [address] [place] Work Phone: [phone] on above:Reference Range: 32.0 - 36.0MCV (RBC) [Entitic vol]96 fL80 - 527US-Tgiyclzyte-EHS [facility] [address] [place] Work Phone: [phone]/100 WBC (Bld)11.3 %2.0 - 10.0 GL-Zhschkxlyu-JEW [facility] [address] [place] Work Phone: [phone]/100 WBC (Bld)66.1 %See Below OW-Zigwjzvkbl-PNL [facility] [address] [place] Work Phone: [phone] on above:Reference Range: 40.0 - 80.0Platelets (Bld) [#/Vol]268 10*3/uL150 - 002PR-Euhsarwvxj-LHA [facility] [address] [place] Work Phone: [phone] (Bld) [#/Vol]4.14 {x10E12/L}below low thresholdSee KivveXJ-Xpdkblakpe-KMI [facility] [address] [place] Work Phone: [phone] on above:Reference Range: 4.50 - 5.90WBC (Bld) [#/Vol]8.7 10*3/uL4.4 - 11.1JI-Jvopyuuyic-IGO [facility] [address] [place] Work Phone: [phone] Blood Count + Differential0.6 %0.0 - 0.9 DH-Bkdwpykrbr-BIE [facility] [address] [place] Work Phone: [phone] on above:Immature Granulocyte Count (IG) includes promyelocytes, myelocytes and metamyelocytes but does not include bands. Percent differential counts (%) should be interpreted in the context of the absolute cell counts (cells/L).Complete Blood Count + Differential3.3 %0.0 - 6.4UQ-Wweghltnob-LGZ [facility] [address] [place] Work Phone: [phone] Blood Count + Differential5.72 {x10E9/L}above high thresholdSee TqfltII-Cycgrijmbt-FPW [facility] [address] [place] Work Phone: [phone] on above:Reference Range: 1.60 - 5.50Complete Blood Count + Differential1.56 {x10E9/L}See HzgxlEQ-Huxvuqynhm-HUR [facility] [address] [place] Work Phone: [phone] on above:Reference Range: 0.80 - 3.00Complete Blood Count + Differential0.98 {x10E9/L}above high thresholdSee Below YW-Ohhctjqdtp-LRN [facility] [address] [place] Work Phone: [phone] on above:Reference Range: 0.05 - 0.80Complete Blood Count + Differential0.29 {x10E9/L}See QkucqDI-Zuthnwbixt-WZM [facility] [address] [place] Work Phone: [phone] on above:Reference Range: 0.00 - 0.40Complete Blood Count + Differential0.06 {x10E9/L}See IteukKH-Qvnpyodgxk-OXG [facility] [address] [place] Work Phone: [phone] on above:Reference Range: 0.00 - 0.10 Laboratory - Chemistry and Chemistry - challengeon 17-03-6770Jnham gap [Moles/Vol]14 mmol/L10 - 01ML-Wivnrpatxh-QBW [facility] [address] [place] Work Phone: Calcium [Mass/Vol]9.7 mg/dL8.6 - 10.5EU-Rzufdleiae-GMU [facility] [address] [place] Work Phone: Chloride [Moles/Vol]103 mmol/L98 - 107 LE-Diwarucmwn-ZCF [facility] [address] [place] Work Phone: AS0 [Moles/Vol]29 mmol/L21 - 38QH-Bqzlzvclsw-DYR [facility] [address] [place] Work Phone: Creatinine [Mass/Vol]1.04 mg/dLSee Below WZ-Vvyexczpqj-HFA [facility] [address] [place] Work Phone: Comment on above:Reference Range: 0.50 - 1.30Glucose [Mass/Vol]102 mg/dLabove high uzfoifbal27 - 60EJ-Jmlzklhzfj-OEW [facility] [address] [place] Work Phone: Potassium [Moles/Vol]4.7 mmol/L3.5 - 5.3 WJ-Suwdnyjgip-HZK [facility] [address] [place] Work Phone: Sodium [Moles/Vol]141 mmol/L136 - 295OA-Nxkdexnunt-RIB [facility] [address] [place] Work Phone: Urea nitrogen [Mass/Vol]26 mg/dLabove high threshold6 - 09LA-Sruaezyuia-ECF [facility] [address] [place] Work Phone: [phone] - Coagulationon 10-70-0329OVB Coag (PPP) [Relative time]2.2 {INR}above high threshold0.9 - 1.7PA-Snxxshmyrb-TII [facility] [address] [place] Work Phone: PT Coag (PPP) [Time]26.0 sabove high thresholdSee YissxNH-Ekwqqbvzsl-UUE [facility] [address] [place] Work Phone: [phone] on above:Reference Range: 10.1 - 13.3No Panel Informationon 02-24-2020>60>87ZQ-Cvwnxmsqbq-FXN [facility] [address] [place] Work Phone: Comment on above:CALCULATIONS OF ESTIMATED GFR ARE PERFORMED USING THE MDRD STUDY EQUATION FOR THE IDMS-TRACEABLE CREATININE METHODS. CLIN CHEM 2007;53:766-72CT TAVR Full Contrast CH/ABD/Pelvison 36-26-0812RF TAVR Full Contrast CH/ABD/PelvisInterpreted by: LAM SEGOVIA KTFMXS55/08/20 08:59Addendum BeginsMRN: [id number] Name: FANI CHUA ADDENDUM:NON-CARDIOVASCULAR CHEST FINDINGS LUNGS / AIRSPACES / AIRWAYS:Airways: The trachea and central major airways are clear; noendobronchial filling defect.Lungs / airspaces: Moderate biapicalparaseptal and centrilobularemphysema with bullous change. Milder mostly paraseptal emphysematouschange in the mid lungs. Sparing of the lung bases from anyemphysematous change. No consolidation, airspace ground-glass or anyother sign of infection. No interstitial or alveolar edema. One ofthe rightlower lobe nodules is a definitively benign calcifiedgranuloma. [...] without dedicated sagittal and coronalreformatted series. LIVER: Normal.No enlargement or evidence of cirrhosis or fattychange. [...] renal cysts measuresmaximum diameter 3.7 cm and hasrim calcifications. See theimpression of this report No hydronephrosis on either side, but there isan apparentlynonobstructing 5-6 mm distal right ureteral stone within 1 cm of theUVJ proximal to which there is segmental ectasia of the ureter LYMPH NODES: No adenopathy, intraperitoneal, retroperitoneal, pelvicor otherwise APPENDIX: Normal. Not dilated, thick walled or in any other wayinflamed inappearance. No inflammatory change about the appendix. COLON: [...] nodes in a separate dedicated section. OMENTUM, MESENTERYAND PERITONEAL SPACES:Free intraperitoneal air: NegativeFree intraperitoneal fluid: NegativeAbscess: NegativeOther: n/a URINARY BLADDER: Normal. No wall thickening, large diverticula,radiodense stoneor surrounding inflammatory change. PELVIS: Suspect prostatectomy ABDOMINAL [...] COLLECTION ANTERIOR TO AND PROBABLY ARISINGFROM RIGHT HIPJOINT OR ADJACENT BURSA OR EVEN POSSIBLYINTRAMUSCULAR. ETIOLOGY AND SIGNIFICANCE INDETERMINATE. FORANYUNEXPLAINED RIGHT HIP PAIN, CONSIDER MRI FOR FURTHER EVALUATION NO OTHER CONTRIBUTORY POTENTIALLY UNEXPECTED FINDINGS IN THE ABDOMENOR PELVIS OUTSIDE THE CARDIOVASCULAR SYSTEMAddendum EndsMRN: [id number] Name: FANI CHUA STUDY:TH CT TAVR FULL CONTRAST CHEST/ABD/PELVIS; 02/15/2020 11:18 am INDICATION:sob. COMPARISON:None. ORDERING CLINICIAN:VI MELGAR TECHNIQUE:Multi-detector CT technology was employed [employer] CT 64-slicescanner. Helical multidetector acquisition of the chest withretrospective gating and minimal slice thickness was performed priorto and following the intravenous administration of contrast material.Subsequently, contrast enhanced CT examination of the abdomen andpelvis was obtained. A low- osmolar contrast agent was used 100ml ofIsovue-370Using prospective [...] DIMENSIONS:Aortic annulus:25 x 35mm.Sinus of Valsalva(coronal):39 mmAcross sinuses(cusp-commissure):39mm.Sinotubular junction:33mm.Ascending aorta (RPA level):41mm.Upper ascending aorta:39mm.Arch(mid):34mm.Arch(distal):35mm.Descending aorta(PA level):32 mm.Descending aorta (diaphragm level):30mm.Main pulmonary artery:34mm.Right pulmonary artery:28 [...] enlargement.Mitral annular calcification. CTA ABDOMEN/PELVIS WITH CONTRAST ABDOMINALAORTIC DIMENSIONS:Descending aorta diaphragm level:30mm. Descending aorta renal arterylevel:28mm. Descending aorta infrarenal:27mm.Descending aorta distal before bifurcation:22 mm.No abdominal aorta [...] trileaflet aortic valve. Aortic valve calcium score 24128. Aortic annulus 25 x 35mm3. 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 Moderate atherosclerosis of abdominal aorta without evidence ofaneurysm or dissection. Reading Screen Printer: Dr. Isai Baxter, Date: 02/17/2020 2:29 pmElectronically signed by: LAM BROUSSARD 02/21/20 08:59Normal PD-Hwfxenhwio-ITL [facility] [address] [place] Work Phone: Comment on above:ORDER REVISED TO A TH CT TAVR FULL CONTRAST CHEST/ABD/PELVIS BY RADIOLOGIST; Original Order Number:[id number] Vital Signs Date TimeVital SignValuePerforming PujusuzrrHxvxvnof48-06-4500 11:23040Body ioxgzq326.3 Casey Anderson MD Work Phone: [facility] CenterDoylaiyjpm57-24-3477 11:23-0400Body mass index (BMI) [Ratio]23.18 kg/s7UqesitMaría Anderson MD Work Phone: [phone] CenterQzxezwdnki40-78-4550 11:23-0400Body rbinss06.22 kgMaría Anderson MD Work Phone: [facility] CenterPmwzivzuze79-92-3064 11:23-0400Diastolic blood rhhmpeha13 mm[Hg]María Anderson MD Work Phone: [phone] [place], [place] [address]Mhxtsgzywu42-31-0981 11:23-0400Heart rate77 /min María Anderson MD Work Phone: [phone] [address] [place], [place] [address]Aqwpbvnqex18-81-6431 11:23-7984WbB9% (BldA) [Mass fraction]95 %María Anderson MD Work Phone: [phone] CenterTkxpdpzfkr92-37-3491 11:23-0400Systolic blood sgjkaojr169 mm[Hg]María Anderson MD Work Phone: [phone] [place], [place] [address]Iswoaljier83-67-0115 08:47-0400Body temperature 97.8 [degF]María Anderson MD Work Phone: [phone]10-08-2025 08:47-0400 Diastolic blood vtfuiueo61 mm[Hg]María Anderson MD Work Phone: [phone]10-08-2025 08:47-0400 Heart rate70 /minMaría Anderson MD Work Phone: [address] [place], [place] 516[address]10-08-2025 08:47-0400 Respiratory rate20 /minMaría Anderson MD Work Phone: [phone] [place], [place] 1942810-08-2025 08:47-0400 SaO2% (BldA) [Mass fraction]94 %María Anderson MD Work Phone: [facility]10-08-2025 08:47-0400 Systolic blood zekcassx939 mm[Hg]María Anderson MD Work Phone: [phone]10-08-2025 04:37-0400 Body .72 [facility]-Sullivanjae Anderson MD Work Phone: [phone] [place], [place] 1942810-08-2025 04:37-0400 Body klsyvy69 kgMaría Anderson MD Work Phone: [phone] [place], [place] 1942810-08-2025 03:30-0400 Diastolic blood jhubjzoh16 mm[Hg]María Anderson MD Work Phone: [phone]10-08-2025 03:30-0400 Heart rate88 /minMaría Anderson MD Work Phone: [phone]10-08-2025 03:30-0400 Respiratory rate20 /minMaría Anderson MD Work Phone: [phone] [place], [place] 3769410-08-2025 03:30-0400 SaO2% (BldA) [Mass fraction]94 %María Anderson MD Work Phone: [phone] [place], [place] 3769410-08-2025 03:30-0400 Systolic blood erpheufo978 mm[Hg]María Anderson MD Work Phone: [phone]10-07-2025 20:09-0400 Body .72 cmRjae Anderson MD Work Phone: [phone] [place], [place] 1942810-07-2025 20:09-0400 Body lspwasdgvle88 [degF]María Anderson MD Work Phone: [phone]10-07-2025 20:09-0400 Body ddroxe75 kgMaría Anderson MD Work Phone: [phone]08-20-2025 15:48-0400 Body lgeuph278.3 cmMichelroderick Joshua BACTERIOLOGIST DAIRY Work Phone: noSaint Joseph Health CenterIqtcsyayml01-27-8616 15:48-0400Body mass index (BMI) [Ratio]23.64 kg/b6Umlwivk Patricia BACTERIOLOGIST DAIRY Work Phone: noSaint Joseph Health CenterJvwrbzltpo62-79-0185 15:48-0400Body edfalx03.62 kgMichele Patricia BACTERIOLOGIST DAIRY Work Phone: noSaint Joseph Health CenterWzogouxuuq47-82-1030 15:48-0400Diastolic blood mm[Hg]Jayy Adamsos BACTERIOLOGIST DAIRY Work Phone: NOSaint Joseph Health CenterOrjbtwmbst57-85-1683 15:48-0400Heart rate56 /min Jayy Joshua BACTERIOLOGIST DAIRY Work Phone: NOSaint Joseph Health CenterAnqohavbsq88-39-0491 15:48-8037JaL1% (BldA) [Mass fraction]95 %Jayy Joshua BACTERIOLOGIST DAIRY Work Phone: NOSaint Joseph Health CenterGihrqxerny96-74-1545 15:48-0400Systolic blood kgfhhivi672 mm[Hg]Jayy Adamsos BACTERIOLOGIST DAIRY Work Phone: NOSaint Joseph Health CenterMglosnwfrg68-25-4841 14:42-0400Body mass index (BMI) [Ratio]23.63 kg/v7LgceuubJayy Joshua BACTERIOLOGIST DAIRY Work Phone: NOSaint Joseph Health CenterUuooosgpzn48-19-6565 14:42-0400Body lwocwi00.58 kgMicdesean Joshua BACTERIOLOGIST DAIRY Work Phone: NOSaint Joseph [facility] CenterSlwbzvadtv40-27-9246 14:42-0400Diastolic blood swhajuau07 mm[Hg]Jayy Adamsos BACTERIOLOGIST DAIRY Work Phone: NOSaint Joseph Health CenterMruorcbxkn45-32-7116 14:42-0400Heart rate80 /min Jayy Adamsos BACTERIOLOGIST DAIRY Work Phone: NOSaint Joseph Health CenterKeilxdjrcu20-73-4976 14:42-7176WrE3% (BldA) [Mass fraction]95 %Jayy Adamsos BACTERIOLOGIST DAIRY Work Phone: NOSaint Joseph Health CenterZjmtocecue12-12-7274 14:42-0400Systolic blood oanfknuc224 mm[Hg]Jayy Patricia BACTERIOLOGIST DAIRY Work Phone: NOSaint Joseph Health CenterVmiyururqh92-32-8504 15:44-0400Body ijjjgs606.7 cmBonita Kingsley MD Work Phone: [facility]06-30-2025 15:44-0400 Body mass index (BMI) [Ratio]24.33 kg/b0OwbpujBonita Kingsley MD Work Phone: [facility]06-30-2025 15:44-0400 Body .58 kgHassan Kingsley MD Work Phone: [facility]06-30-2025 15:44-0400 Diastolic blood gtqwauci54 mm[Hg]Bonita Kingsley MD Work Phone: [facility]06-30-2025 15:44-0400 Heart rate72 /minBonita Kingsley MD Work Phone: [facility]06-30-2025 15:44-0400 Systolic blood ewxhfezo71 mm[Hg]Bonita Kingsley MD Work Phone: [facility]06-05-2025 10:51-0400 Body mass index (BMI) [Ratio]22.89 kg/y9LhjdhfMaría Anderson MD Work Phone: [facility] CenterNdxperlepa48-71-0547 10:51-0400Body .31 kgMaría Anderson MD Work Phone: [facility] CenterObwohxwkyi26-27-8057 10:51-0400Diastolic blood wmearwxf66 mm[Hg]María Anderson MD Work Phone: [facility] CenterOidjswuhur82-62-6790 10:51-0400Heart rate81 /min María Anderson MD Work Phone: [facility] CenterGwmpqvyhhs06-71-8010 10:51-1589DfH8% (BldA) [Mass fraction]97 %María Anderson MD Work Phone: [facility] CenterCuxsapitqt89-98-6458 10:51-0400Systolic blood iobdtqvx359 mm[Hg]María Anderson MD Work Phone: [facility] CenterZfjgxslzyd71-57-7396 13:05-0400Diastolic blood fdigpkvz68 mm[Hg]Maria Fernanda Laws BACTERIOLOGIST DAIRY Work Phone: [facility] CenterFakrfyyplg78-49-1342 13:05-0400Heart rate74 /min Maria Fernanda Laws BACTERIOLOGIST DAIRY Work Phone: [facility] CenterOvlyvxdozh06-81-4275 13:05-0400Respiratory rate16 /minMaria Fernanda Laws BACTERIOLOGIST DAIRY Work Phone: [facility] CenterMjspoiknyl99-73-5045 13:05-4003KfA7% (BldA) [Mass fraction]98 %Maria Fernanda Laws BACTERIOLOGIST DAIRY Work Phone: [facility] CenterPzknnfgbwa07-38-8166 13:05-0400Systolic blood fklizdaj554 mm[Hg]Maria Fernanda Eusebia BACTERIOLOGIST DAIRY Work Phone: [facility] CenterSowakqushm60-68-8413 17:10-0500Diastolic blood ywyclabs94 mm[Hg]María Anderson MD Work Phone: 1(388)[address]01-01-2025 17:10-0500 Heart rate79 /minMaría Anderson MD Work Phone: 4(794)[address]01-01-2025 17:10-0500 Respiratory rate20 /minMaría Anderson MD Work Phone: 9(440)[address] [place], [place] 3769401-01-2025 17:10-0500 Systolic blood fgobczco682 mm[Hg]María Anderson MD Work Phone: 8(919)[address]01-01-2025 17:00-0500 SaO2% (BldA) [Mass fraction]94 %María Anderson MD Work Phone: 1(064)0-[address] [place], [place] 1942801-01-2025 15:06-0500 Body dtwwrodrbml61.6 [degF]María Anderson MD Work Phone: 5(972)[address]01-01-2025 13:39-0500 Body giocog140.26 Casey Anderson MD Work Phone: 2(665)3-[address] [place], [place] 1942801-01-2025 13:39-0500 Body otnmlz48.4 kgMaría Anderson MD Work Phone: 5(690)[address]12-30-2024 14:34-0500 Body mass index (BMI) [Ratio]24.07 kg/m2Gina Funmilayo BACTERIOLOGIST DAIRY Work Phone: noSaint [facility] CenterJfssclpxwt85-33-9447 14:34-0500Body droxkn59.94 kgRosalinda Vuti BACTERIOLOGIST DAIRY Work Phone: [facility] CenterDzlrvqxfqn46-31-3030 14:34-0500Diastolic blood ccpcofjy27 mm[Hg]Rosalinda Vuti BACTERIOLOGIST DAIRY Work Phone: [facility] CenterHvttlsdpwr47-96-7715 14:34-0500Heart rate64 /min Rosalinda Vuti BACTERIOLOGIST DAIRY Work Phone: [facility] CenterElyokoaqhg25-47-4729 14:34-5334QvE8% (BldA) [Mass fraction]94 %Rosalinda Mirellati BACTERIOLOGIST DAIRY Work Phone: [facility] CenterGiqanjgwsc69-60-5333 14:34-0500Systolic blood gjjpurdg073 mm[Hg]Rosalinda Caro BACTERIOLOGIST DAIRY Work Phone: 1(998)784-[address] [place], [place] [address]Vknidgavwx73-09-2440 09:41-0500Diastolic blood efocvloj60 mm[Hg]Bonita Kingsley MD Work Phone: 1(985)[address]12-04-2024 09:41-0500 Systolic blood qoefniag651 mm[Hg]Bonita Kingsley MD Work Phone: 1(744)[address]12-04-2024 09:38-0500 Body .3 cmBonita Kingsley MD Work Phone: 1(759)024[address]12-04-2024 09:38-0500 Body mass index (BMI) [Ratio]24.19 kg/d2NfacqcBonita Kingsley MD Work Phone: 1(508)[address]12-04-2024 09:38-0500 Body qgzpyn78.3 kgBonita Kingsley MD Work Phone: 1(259)23083 [address]12-04-2024 09:38-0500 Heart rate62 /minBonita Kingsley MD Work Phone: 1(442)[address]11-04-2024 14:08-0500 Body ayqdyy109.3 cmBonita Kingsley MD Work Phone: 1(435)9[address]83 [address]11-04-2024 14:08-0500 Body mass index (BMI) [Ratio]23.98 kg/y9QbwrbbBonita Kingsley MD Work Phone: [address] [place], [place] 7637911-04-2024 14:08-0500 Body ufirlk87.66 kgBonita Kingsley MD Work Phone: [address] [place], [place] 7637911-04-2024 14:08-0500 Diastolic blood yefnzbrz99 mm[Hg]Bonita Kingsley MD Work Phone: 1(054)642-[address] [place], [place] 3376511-04-2024 14:08-0500 Heart rate72 /minBonita Kingsley MD Work Phone: 1(748)308-[address] [place], [place] 3376511-04-2024 14:08-0500 Systolic blood inrupofq670 mm[Hg]Bonita Kingsley MD Work Phone: 1(604)561-[address] [place], [place] 3376510-30-2024 13:32-0400 Body xcqwra658.[address]10-30-2024 13:32-0400 Body mass index (BMI) [Ratio]24.66 kg/m[address] 04-13-2024 13:32-0400Body updvwk46.[address] 04-13-2024 13:32-0400Diastolic blood oyoucvlj90 mm[Hg][address]10-30-2024 13:32-0400Systolic blood mibwzxxv123 mm[Hg][address]10-23-2024 14:40-0400Body genjddakloj54.3 [degF]Maria Fernanda Laws BACTERIOLOGIST DAIRY Work Phone: [facility] CenterTddbigbezi97-54-6946 14:40-0400Diastolic blood tudpuzjs43 mm[Hg]Maria Fernanda Laws BACTERIOLOGIST DAIRY Work Phone: [facility] CenterKtfaskvbaq65-91-4481 14:40-0400Heart rate61 /min Maria Fernanda Laws BACTERIOLOGIST DAIRY Work Phone: [facility] CenterUszvtsrokf33-31-5415 14:40-2078FxP2% (BldA) [Mass fraction]91 %Maria Fernanda Laws BACTERIOLOGIST DAIRY Work Phone: noSaint [facility] CenterYjgkcsriud76-59-0300 14:40-0400Systolic blood kclvhyhj886 mm[Hg]Maria Fernanda Palmerion BACTERIOLOGIST DAIRY Work Phone: [place] [address]Rbywphkwsw56-66-1854 13:36-0400Body zdrimn954.3 cmFemarleny Perla BACTERIOLOGIST DAIRY Work Phone: noSaint [facility] CenterFrbqoexkcs25-39-9721 13:36-0400Body mass index (BMI) [Ratio]23.92 kg/j8Wrajplimarleny Perla BACTERIOLOGIST DAIRY Work Phone: [place] [address]Yweklobult08-04-9924 13:36-0400Body .48 kgFemarleny Perla BACTERIOLOGIST DAIRY Work Phone: [place] [address]Ryemnetjws05-63-8494 13:36-0400Diastolic blood xrgeykhk51 mm[Hg]Petr Perla BACTERIOLOGIST DAIRY Work Phone: noSaint [facility] CenterOccxydgvcp59-05-7216 13:36-0400Heart rate79 /min Petr Perla BACTERIOLOGIST DAIRY Work Phone: noSaint [facility] CenterFmqtntydvw08-54-0958 13:36-0400Systolic blood mm[Hg]Petr Perla BACTERIOLOGIST DAIRY Work Phone: noSaint [facility] CenterAqpoiizkwz02-19-6445 14:08-0400Diastolic blood mm[Hg]Maria Fernanda Palmerion BACTERIOLOGIST DAIRY Work Phone: [facility] CenterJeaswbyxsl21-62-7107 14:08-0400Heart rate83 /min Maria Fernanda Laws BACTERIOLOGIST DAIRY Work Phone: [place] [address]Khvbbxasfm75-53-1194 14:08-6931AgY8% (BldA) [Mass fraction]96 %Maria Fernanda Palmerion BACTERIOLOGIST DAIRY Work Phone: noSaint [facility] CenterMpzejrijkj13-12-4461 14:08-0400Systolic blood uhwiwetk901 mm[Hg]Maria Fernanda Palmercristine BACTERIOLOGIST DAIRY Work Phone: [place] [address]Rfrrepypep60-92-2836 15:42-0400Body temperature 97.9 [degF]MD María Anderson Work Phone: [facility]09-14-2024 15:42-0400 Diastolic blood waqrnkmg26 mm[Hg]MD María Anderson Work Phone: [facility]09-14-2024 15:42-0400 Heart rate61 /minMD María Anderson Work Phone: [facility]09-14-2024 15:42-0400 Respiratory rate18 /minMD María Anderson Work Phone: 1(453)978-[address] [place], [place] 1942809-14-2024 15:42-0400 SaO2% (BldA) [Mass fraction]93 %MD María Anderson Work Phone: 1(492)757-[address] [place], [place] 1942809-14-2024 15:42-0400 Systolic blood guasqmyp181 mm[Hg]MD María Anderson Work Phone: 1(650)864-[address] [place], [place] 1942809-14-2024 06:00-0400 Body avkalx19.2 kg María Anderson Work Phone: 1(039)346-17[facility]09-13-2024 13:30-0400 Diastolic blood pmeyegwt90 mm[Hg]MD María Anderson Work Phone: 1(623)044-[address] [place], [place] 1942809-13-2024 13:30-0400 Heart rate79 /minMD María Anderson Work Phone: [facility]09-13-2024 13:30-0400 Respiratory rate20 /minMD María Anderson Work Phone: [facility]09-13-2024 13:30-0400 SaO2% (BldA) [Mass fraction]99 %MD María Anderson Work Phone: [facility]09-13-2024 13:30-0400 Systolic blood lmbluagp686 mm[Hg]MD María Anderson Work Phone: [facility]09-13-2024 08:59-0400 Body fpjkgwjtgsu82 [degF]MD María Anderson Work Phone: [facility]09-13-2024 08:54-0400 Body vanrvd426.26 cmMD María Anderson Work Phone: [facility]09-13-2024 08:54-0400 Body xyying62.8 kgMD María Anderson Work Phone: [facility]09-04-2024 14:58-0400 Body hcxuol049.3 cmGina Mirellati BACTERIOLOGIST DAIRY Work Phone: [facility] CenterObnrbcvpoo83-26-7198 14:58-0400Body mass index (BMI) [Ratio]24.45 kg/m2Gina Risaliti BACTERIOLOGIST DAIRY Work Phone: [facility] CenterPgelhagnuh88-05-8075 14:58-0400Body pvxmvu93.12 kgGina Risaliti BACTERIOLOGIST DAIRY Work Phone: [facility] CenterPzyqqbaaih93-41-8106 14:58-0400Diastolic blood cefvbrre30 mm[Hg]Rosalinda Risaliti BACTERIOLOGIST DAIRY Work Phone: [facility] CenterLkqzqwuvno07-66-5858 14:58-0400Heart rate52 /min Rosalinda Risaliti BACTERIOLOGIST DAIRY Work Phone: 1(216)506-[address] [place], [place] [address]Ptrkqznjvq61-11-9209 14:58-6217WzO9% (BldA) [Mass fraction]93 %Rosalinda Risaliti BACTERIOLOGIST DAIRY Work Phone: [facility] CenterCoqskodwxd13-47-9267 14:58-0400Systolic blood fnuzbvao474 mm[Hg]Rosalinda Risaliti BACTERIOLOGIST DAIRY Work Phone: 1(079)022-[address] [place], [place] [address]Kgliiirzdg41-04-1431 12:08-0400Body temperature 97.8 [degF]MD María Anderson Work Phone: [facility]08-09-2024 12:08-0400 Diastolic blood aqnatemy46 mm[Hg]MD María Anderson Work Phone: [facility]08-09-2024 12:08-0400 Heart rate64 /minMD María Anderson Work Phone: 1(419)626-[address] [place], [place] 1942808-09-2024 12:08-0400 Respiratory rate14 /minMD María Anderson Work Phone: [facility]08-09-2024 12:08-0400 SaO2% (BldA) [Mass fraction]95 %MD María Adnerson Work Phone: [facility]08-09-2024 12:08-0400 Systolic blood avqtdsnz102 mm[Hg]MD María Anderson Work Phone: [address] [place], [place] 5163608-09-2024 04:18-0400 Body .3 kgIN María Monica Work Phone: 1(668)[address] [place], [place] 5163608-08-2024 20:10-0400 Body .26 cmIN María Anderson Work Phone: [address] [place], [place] 5163608-08-2024 18:30-0400 Diastolic blood ywkebqgz68 mm[Hg]MD María Anderson Work Phone: [facility]08-08-2024 18:30-0400 Heart rate78 /minMD María Anderson Work Phone: [facility]08-08-2024 18:30-0400 Respiratory rate18 /minMD María Anderson Work Phone: [facility]08-08-2024 18:30-0400 SaO2% (BldA) [Mass fraction]96 %MD María Anderson Work Phone: [facility]08-08-2024 18:30-0400 Systolic blood wkknmyhs291 mm[Hg]MD María Anderson Work Phone: [facility]08-08-2024 15:16-0400 Body eextjd531.8 cmMD María Anderson Work Phone: [facility]08-08-2024 15:16-0400 Body .4 [degF]MD María Anderson Work Phone: [facility]08-08-2024 15:16-0400 Body emldzm97.2 kgMD María Anderson Work Phone: [facility]07-16-2024 14:44-0400 Body hhcyqrcezfy51.7 [degF]MD María Anderson Work Phone: [facility]07-16-2024 14:44-0400 Diastolic blood qfpylibq15 mm[Hg]MD María Anderson Work Phone: [facility]07-16-2024 14:44-0400 Heart rate57 /minMD María Anderson Work Phone: [facility]07-16-2024 14:44-0400 SaO2% (BldA) [Mass fraction]95 %MD María Anderson Work Phone: [facility]07-16-2024 14:44-0400 Systolic blood raixoujr481 mm[Hg]MD Mraía Anderson Work Phone: [facility]07-16-2024 04:44-0400 Respiratory rate18 /minMD María Anderson Work Phone: [facility]07-11-2024 15:26-0400 Body sxknep721.26 cmMD María Anderson Work Phone: [facility]07-11-2024 05:31-0400 Body ifeenu16 kgMD María Anderson Work Phone: [facility]07-10-2024 11:48-0400 Body blbricnvuti86.4 [degF]MD María Anderson Work Phone: [facility]07-10-2024 11:48-0400 Diastolic blood slqoaksp00 mm[Hg]MD María Anderson Work Phone: [facility]07-10-2024 11:48-0400 Heart rate69 /minMD María Anderson Work Phone: [facility]07-10-2024 11:48-0400 Respiratory rate17 /minMD María Anderson Work Phone: [facility]07-10-2024 11:48-0400 SaO2% (BldA) [Mass fraction]95 %MD María Anderson Work Phone: [facility]07-10-2024 11:48-0400 Systolic blood lornbspo358 mm[Hg]MD María Anderson Work Phone: [facility]07-10-2024 06:19-0400 Body whagvl99.5 kgMD María Anderson Work Phone: 1(039)716-[address] [place], [place] 1942807-09-2024 14:02-0400 Body tazsei328.26 cmMD María Anderson Work Phone: [facility]07-08-2024 20:54-0400 Diastolic blood pqjwajfa38 mm[Hg]MD María Anderson Work Phone: [address] [place], [place] [address]3607-08-2024 20:54-0400 Heart rate69 /minMD María Anderson Work Phone: [facility]07-08-2024 20:54-0400 SaO2% (BldA) [Mass fraction]96 %MD María Anderson Work Phone: [facility]07-08-2024 20:54-0400 Systolic blood kvoxndso377 mm[Hg]MD María Anderson Work Phone: [facility]07-08-2024 19:00-0400 Body thbail798.26 cmMD María Anderson Work Phone: [facility]07-08-2024 19:00-0400 Body sfvvnbadkcv24.3 [degF]MD María Anderson Work Phone: [facility]07-08-2024 19:00-0400 Body ezzmwu44.3 kgMD María Anderson Work Phone: [facility]07-08-2024 19:00-0400 Respiratory rate20 /minMD María Anderson Work Phone: [facility]07-07-2024 11:13-0400 Body qvifobtcsqh99.5 [degF]MD María Anderson Work Phone: [facility]07-07-2024 11:13-0400 Diastolic blood cziscsbx94 mm[Hg]MD María Anderson Work Phone: [facility]07-07-2024 11:13-0400 Heart rate87 /minMD María Anderson Work Phone: 1(296)426-[address] [place], [place] 1942807-07-2024 11:13-0400 Respiratory rate16 /minMD María Anderson Work Phone: 1(632)877-[address] [place], [place] [address]807-07-2024 11:13-0400 SaO2% (BldA) [Mass fraction]95 %MD María Anderson Work Phone: [facility]07-07-2024 11:13-0400 Systolic blood nqwkxtwa480 mm[Hg]MD María Anderson Work Phone: [facility]07-07-2024 06:58-0400 Body .02 cm María Anderson Work Phone: [address] [place], [place] [address]7-07-2024 06:58-0400 Body tllrqu25.1 kgMD Cowart Monica Work Phone: [facility]07-07-2024 04:30-0400 Diastolic blood clbiqhyb90 mm[Hg]MD María Anderson Work Phone: [facility]07-07-2024 04:30-0400 Heart rate70 /minMD María Anderson Work Phone: [facility]07-07-2024 04:30-0400 Respiratory rate20 /minMD María Anderson Work Phone: [facility]07-07-2024 04:30-0400 SaO2% (BldA) [Mass fraction]97 %MD María Anderson Work Phone: [facility]07-07-2024 04:30-0400 Systolic blood exslidzh443 mm[Hg]MD María Anderson Work Phone: [facility]07-07-2024 00:46-0400 Body qkcepw022.26 cmMD María Anderson Work Phone: [facility]07-07-2024 00:46-0400 Body mbyhpljpqrr30.9 [degF]MD María Anderson Work Phone: [facility]07-07-2024 00:46-0400 Body edtmcd73.93 kgMD María Anderson Work Phone: [address] [place], [place] 5163604-16-2024 09:12-0400 Body .3 cmBonita Kingsley MD Work Phone: 1(999)[address]04-16-2024 09:12-0400 Body mass index (BMI) [Ratio]24.66 kg/p4DjbpsdBonita Kingsley MD Work Phone: 1(213)61283 [address]04-16-2024 09:12-0400 Body .75 kgBonita Kingsley MD Work Phone: 1(260)41483 [address]04-16-2024 09:12-0400 Diastolic blood mm[Hg]Bonita Kingsley MD Work Phone: 1(313)41483 [address]04-16-2024 09:12-0400 Heart rate64 /minBonita Kingsley MD Work Phone: 1(652)41483 [address]04-16-2024 09:12-0400 Systolic blood zzenwlbl178 mm[Hg]Bonita Kingsley MD Work Phone: 1(796)21483 [address]12-23-2023 16:05-0500 Body xkbpptoylxd78.8 [degF]MD María Anderson Work Phone: [facility]12-23-2023 16:05-0500 Diastolic blood yhyzazuc92 mm[Hg]MD María Anderson Work Phone: [facility]12-23-2023 16:05-0500 Heart rate65 /minMD María Monica Work Phone: [facility]12-23-2023 16:05-0500 Respiratory rate16 /minMD María Anderson Work Phone: 1(840)912-[facility]12-23-2023 16:05-0500 SaO2% (BldA) [Mass fraction]95 %MD María Anderson Work Phone: [facility]12-23-2023 16:05-0500 Systolic blood ehqbldjp182 mm[Hg]MD María Anderson Work Phone: 1(058)441-[address] [place], [place] 1942812-23-2023 06:00-0500 Body cnauaa58.5 kgIN María Monica Work Phone: 1(669)[address]12-22-2023 10:50-0500 Body .26 cmIN María Monica Work Phone: 1(471)330-[address] [place], [place] 1942811-21-2023 16:26-0500 Diastolic blood kevkufxb59 mm[Hg]MD María Anderson Work Phone: [facility]11-21-2023 16:26-0500 Heart rate67 /minMD María Anderson Work Phone: [facility]11-21-2023 16:26-0500 Respiratory rate16 /minMD Cowart Monica Work Phone: [facility]11-21-2023 16:26-0500 SaO2% (BldA) [Mass fraction]97 %MD María Anderson Work Phone: [facility]11-21-2023 16:26-0500 Systolic blood qpmlqhoy826 mm[Hg]MD María Anderson Work Phone: 1(696)[phone]11-21-2023 15:41-0500 Inhaled oxygen flow rate6 L/minMD María Anderson Work Phone: [facility]11-21-2023 15:00-0500 Body fddmas329 mgMD María Anderson Work Phone: [facility]11-21-2023 13:33-0500 Body jzjkol314.26 cmMD María [place] Work Phone: [facility]11-21-2023 13:33-0500 Body mass index (BMI) [Ratio]24.7 kg/m2MD [facility] Work Phone: [facility]11-21-2023 13:33-0500 Body lakspw95.2 kgMD María [place] Work Phone: 1(406)596-[address] [place], [place] 1942811-21-2023 13:03-0500 Body rafatrcpyzt48.3 [degF]MD María Anderson Work Phone: 1(113)0214421 [address] [place], [place] 5163610-30-2023 11:14-0400 Body omkelp930.26 cmIN María Anderson Work Phone: 1(333)0703821 [address] [place], [place] 5163610-30-2023 11:14-0400 Body mass index (BMI) [Ratio]24.6 kg/m2MD María [place] Work Phone: [address] [place], [place] 5163610-30-2023 11:14-0400 Body prefaz71.74 kgIN María Anderson Work Phone: [facility]10-30-2023 11:06-0400 Body qxzdokwdvsn69.5 [degF]MD Mraía Anderson Work Phone: [facility]10-30-2023 11:06-0400 Diastolic blood iznokuic24 mm[Hg]MD María Anderson Work Phone: [facility]10-30-2023 11:06-0400 Heart rate55 /minMD María Anderson Work Phone: [facility]10-30-2023 11:06-0400 Respiratory rate18 /minMD María Anderson Work Phone: [facility]10-30-2023 11:06-0400 Systolic blood auyukvma347 mm[Hg]MD María Anderson Work Phone: [facility]10-20-2023 08:43-0400 Body xyxefk759.3 cmEly 2[facility]10-20-2023 08:43-0400 Body mass index (BMI) [Ratio]24.66 kg/m2Ely [address] [place] [address] 04-03-2023 08:43-0400Body cccyia77.[address] [place] [address] 04-03-2023 08:43-0400Diastolic blood xwmbtinl05 mm[Hg]Nano [address] [place], [place] 3883810-20-2023 08:43-0400Systolic blood dsujtozd911 mm[Hg][address]10-19-2023 12:55-0400Body .26 cmMD María Anderson Work Phone: 1(679)[address]10-19-2023 12:55-0400 Body mass index (BMI) [Ratio]24.6 kg/m2MD María Anderson Work Phone: [address] [place], [place] 5163610-19-2023 12:55-0400 Body .74 kgMD María Anderson Work Phone: 1(396)123-[address] [place], [place] 1942810-19-2023 12:46-0400 Body .4 [degF]MD María Anderson Work Phone: [facility]10-19-2023 12:46-0400 Diastolic blood xoperuzz82 mm[Hg]MD María Anderson Work Phone: [facility]10-19-2023 12:46-0400 Heart rate65 /minMD María Anderson Work Phone: [facility]10-19-2023 12:46-0400 Respiratory rate18 /minMD María Anderson Work Phone: [facility]10-19-2023 12:46-0400 Systolic blood sploztmi473 mm[Hg]MD María Anderson Work Phone: [facility]09-12-2023 09:32-0400 Body jomzwj506.26 cmRobert L Hill Work Phone: 1(824) [phone]-Nafzl [facility] [address] DO Work Phone: 1(330) 540-832509-12-2023 09:32-0400Body mass index (BMI) [Ratio] 24.78 kg/z4DhjvvgMaría Anderson Work Phone: 1(489) [phone]-Nwaly [facility] [address] DO Work Phone: 1(724) 502-486409-12-2023 09:32-0400Body surface area Derived from formula1.92 p3GmboplMaría Anderson Work Phone: 1(536) [phone]-Djtlc [facility] [address] DO Work Phone: 1(647) 402-946909-12-2023 09:32-0400Body itrufy08.11 kgRobjong Anderson Work Phone: 1(206) [phone]-Dvwox [facility] [address] DO Work Phone: 1(314) 473-512909-12-2023 09:32-0400Diastolic blood gerqxvuj19 mm[Hg] María Anderson Work Phone: 1(719) [phone]-Ipwjt [facility] [address] DO Work Phone: 1(868) 340-327809-12-2023 09:32-0400Heart rate72 /minMaría Anderson Work Phone: 1(373) [phone]-Shiki [facility] [address] DO Work Phone: 1(731) 721-775209-12-2023 09:32-0400Systolic blood krwslcpe355 mm[Hg] María Andersno Work Phone: 1(979) [phone]-Hbjga [facility] DO Work Phone: 1(384) 843-708108-07-2023 09:25-0400Body uqqelr032.26 cmDO Trey العلي Work Phone: [facility]08-07-2023 09:25-0400 Body xrninezrduy09.2 [degF]DO Trey العلي Work Phone: [facility]08-07-2023 09:25-0400 Body twybcc30.1 kgDO Trey العلي Work Phone: [facility]08-07-2023 09:25-0400 Diastolic blood xmjhcjyf01 mm[Hg]DO Trey العلي Work Phone: [facility]08-07-2023 09:25-0400 Heart rate60 /minDO Trey العلي Work Phone: [facility]08-07-2023 09:25-0400 Respiratory rate20 /minDO Trey العلي Work Phone: [facility]08-07-2023 09:25-0400 SaO2% (BldA) [Mass fraction]97 %DO Trey العلي Work Phone: [facility]08-07-2023 09:25-0400 Systolic blood vvaekxdp021 mm[Hg]DO Trey العلي Work Phone: [address] [place], [place] [address]12-15-2022 10:43-0500 Body fcnbpfudktk68.1 [degF]DO Trey العلي Work Phone: [facility]12-15-2022 10:43-0500 Diastolic blood ydmjslgy00 mm[Hg]DO Trey العلي Work Phone: [facility]12-15-2022 10:43-0500 Heart rate76 /Rosalie العلي Work Phone: [facility]12-15-2022 10:43-0500 Respiratory rate18 /minDSalud العلي Work Phone: [facility]12-15-2022 10:43-0500 Systolic blood xdkizygo224 mm[Hg]DO Trey العلي Work Phone: [phone]10[facility]05[facility]22 10:29-0400 Body ntkwhoyoabz35.2 [degF]DO Treydavid العلي Work Phone: [facility]10-05-2022 10:29-0400 Diastolic blood jnivhoxn96 mm[Hg]DO Trey العلي Work Phone: [facility]10-05-2022 10:29-0400 Heart rate81 /Rosalie العلي Work Phone: 2([phone])586-[address] [place], [place] 1942810-05-2022 10:29-0400 Respiratory rate18 /Rosalie العلي Work Phone: [address] [place], [place] 5163610-05-2022 10:29-0400 Systolic blood nbecmewb238 mm[Hg]DO Trey العلي Work Phone: [phone])[address]09-21-2022 11:12-0400 Body wollhj854.26 cmDO Trey العلي Work Phone: [phone]09-21-2022 11:12-0400 Body mass index (BMI) [Ratio]25.4 kg/m2DO Trey العلي Work Phone: 1(752)399-[address] [place], [place] 1942809-21-2022 11:12-0400 Body .01 kgDO Trey العلي Work Phone: 1(456)065-[address] [place], [place] 1942809-08-2022 10:45-0400 55 1Jeftriston Rekha العلي Work Phone: 1(486) [phone]-Ftxdd [facility] [place] Work Phone: Comment on above:[id number] 11:44-0400Body kmtruy719.26 cmJetasneem Da Silva Zohra Work Phone: 1(585) [phone]-Dfxuh [facility] DO Work Phone: 1(700) 552-852809-01-2022 11:44-0400Body mass index (BMI) [Ratio] 26.14 kg/w4Tiqgnyx A Zohra Work Phone: 1(278) [phone]-Zdqdb [facility] DO Work Phone: 1(509) 403-386109-01-2022 11:44-0400Body surface area Derived from formula1.96 c2DjwxwkeTrey العلي Work Phone: 1(803) [phone]-Wzhwz [facility] DO Work Phone: 1(248) 112-316709-01-2022 11:44-0400Body emomwf77.29 kgTrey Yanman Work Phone: 1(893) [phone]-Urove [facility] DO Work Phone: 1(166) [phone] 11:44-0400Diastolic blood xzdytfqu24 mm[Hg] Trey العلي Work Phone: 1(175) [phone]-Jcdrg [facility] DO Work Phone: 1(891) 604-609909-01-2022 11:44-0400Heart rate74 /minTrey العلي Work Phone: 1(577) [phone]-Fxvag [facility] DO Work Phone: 1(549) 286-100609-01-2022 11:44-0400Systolic blood xvaewyos031 mm[Hg] Trey العلي Work Phone: 1(452) [phone]-Aizfp [facility] DO Work Phone: 1(549) [phone] 09:25-0400Body myvpfzcpsam65.7 [degF]DO Trey العلي Work Phone: [facility]08-23-2022 09:25-0400 Diastolic blood kaojohsd95 mm[Hg]DO Trey العلي Work Phone: [facility]08-23-2022 09:25-0400 Heart rate76 /Rosalie العلي Work Phone: [facility]08-23-2022 09:25-0400 Respiratory rate18 /Rosalie العلي Work Phone: [facility]08-23-2022 09:25-0400 Systolic blood wdpfbebj162 mm[Hg]DO Trey العلي Work Phone: [facility]04-27-2022 14:00-0400 Body knuzfd191.26 cmRobert [employer] Other [facility] [employer] Other 04-27-2022 14:00-0400Body mass index (BMI) [Ratio] 25.25 kg/t0Lopdcw [employer] Other [facility] [employer] Other 04-27-2022 14:00-0400Body ychwli95.57 kgRobert [employer] Other [facility] [employer] Other 12-14-2021 14:00-0500Diastolic blood wopjrnka89 mm[Hg] Trey العلي Work Phone: [phone]-Ukvlg [place] [employer] DO Work Phone: 1(756) 607-285212-14-2021 14:00-0500Systolic blood xscqqqyi957 mm[Hg] Trey العلي Work Phone: 1(540) [phone]-Oihta [place] [employer] DO Work Phone: 1(727) 405-380312-14-2021 13:55-0500Body bosdct854.26 cmTrey العلي Work Phone: 1(122) [phone]-Porrz [place] [employer] DO Work Phone: 1(664) [phone] 13:55-0500Body mass index (BMI) [Ratio] 26.14 kg/h9KkswahtTrey العلي Work Phone: 1(792) [phone]-Dqzwe [place] [employer] 250 DO Work Phone: 1(379) 638-948712-14-2021 13:55-0500Body surface area Derived from formula1.96 e7UyuypgmTrey العلي Work Phone: [phone]-Piwro [place] [facility] [address] DO Work Phone: 1(520) [phone] 13:55-0500Body yfpqiy42.29 kgTrey العلي Work Phone: 1(476) [phone]-Ndytt [facility] DO Work Phone: 1(501) [phone] 13:55-0500Diastolic blood zsxfsikx727 mm[Hg]Trey العلي Work Phone: mp277-6433IP-Uxlsd [facility] DO Work Phone: 1(902) 917-456412-14-2021 13:55-0500Heart rate70 /minJetasneem العلي Work Phone: mp204-2495ZC-Dtxnd [place] [facility] DO Work Phone: 1(605) 633-374412-14-2021 13:55-0500Systolic blood wlcgvwhu924 mm[Hg] Trey العلي Work Phone: mp243-9292CM-Msxrq [place] [facility] DO Work Phone: 1(623) [phone] 14:30-0500Body iffdoj340.26 cmRobert Graham II Other [employer] Other 12-01-2021 14:30-0500Body mass index (BMI) [Ratio]25.1 kg/j1Khaaie [employer] Other [employer] Other 12-01-2021 14:30-0500Body zuefol03.11 kgRobert [employer] Other [employer] Other 10-05-2021 10:45-0400Body imhehs027.26 cmJames Johnston Other [employer] Other 10-05-2021 10:45-0400Body mass index (BMI) [Ratio]25.1 kg/k6Hsszw Johnston Other [employer] Other 10-05-2021 10:45-0400Body xcoulp36.11 kgJames Johnston Other [employer] Other Encounters Encounter DateEncounter TypeCare ProviderFacilityStart: 03-28-2025 End: 41-37-9491Zsaqcd outpatient visit 25 minutesMaría Anderson MD Work Phone: [facility] Internal MedicineComment on above: Balance disorder (Primary Dx); Vertigo of central origin; Frequent falls; Congestive heart failure, NYHA class 2, unspecified congestive heart failure type (HCC); Centrilobular emphysema (HCC); Chronic cough; Laceration of scalp without foreign body, subsequent encounter; EpistaxisStart: 03-28-2025 End: 08-82-8791ohcvxaujvmIGNOPH L HILLNot AvailableStart: 03-23-2025 End: 99-68-4475gomywgcrcfUcsqh M CopseyFacility:[facility] HospitalStart: 03-22-2025 End: 12-13-7375hxnvrdvsnvIgqook HillFacility:[facility] Start: 03-22-2025 End: 42-32-7419Lditewfapc and management of inpatientMichael R. Coltflaco DO-4 [facility] Work Phone: Start: 03-22-2025 End: 47-34-9239fqchdzepupg encounterMaría Anderson MD Work Phone: [facility] Work Phone: Start: 03-06-2025 End: 23-72-1145ffeilgqfhcRfrRashard BlackwoodFacility:FTMCStart: 03-02-2025 End: 82-45-5613Qqewkrklp Result EncounterGeneric External Data ProviderNOMS External Department UnsolicitedStart: 03-02-2025 End: 35-98-0319Uokwcsjbe Result EncounterGeneric External Data ProviderNOMS External Department UnsolicitedStart: 02-22-2025 End: 09-59-4600iglcrtjjocDkneg M CopseyFacility:[facility] HospitalStart: 02-15-2025 End: 60-48-5182ujndfadcdoDmcss M CopseyFacility:[facility] HospitalStart: 02-08-2025 End: 76-30-6183ubczvktlqzUvpel M CopseyFacility:[facility] HospitalStart: 02-01-2025 End: 07-68-1403Wvltei outpatient visit 25 minutesLakeishadesean Joshua BACTERIOLOGIST DAIRY Work Phone: noms [facility] MedicineComment on above: Chronic systolic congestive heart failure, NYHA class 2 (HCC) (Primary Dx); Throat congestion; Moderate major depression (HCC)Start: 02-01-2025 End: 39-50-8959sggalmxjirLNRBJYE Loretta ADAMSOSNot AvailableStart: 02-01-2025 End: 66-58-8151Nqhmop flowsheetMookiee Loretta Adamsos BACTERIOLOGIST DAIRY Work Phone: NONH [facility] MedicineStart: 02-01-2025 End: 86-81-4254Pcbbgt flowsheetJayy Adamsos BACTERIOLOGIST DAIRY Work Phone: [facility] MedicineStart: 02-01-2025 End: 31-91-0508dinlylaodvZsrbx M CopseyFacility:[facility] HospitalStart: 01-25-2025 End: 70-40-9208ntpyorfsptJnwht M CopseyFacility:[facility] HospitalStart: 01-18-2025 End: 82-05-2580cvoadqjomsRimmb M CopseyFacility:[facility] HospitalStart: 01-11-2025 End: 49-65-7968vzxmaylwfnKmgtz M CopseyFacility:[facility] HospitalStart: 01-09-2025 End: 42-40-6347Unzwvxnms Result EncounterJayy Joshua BACTERIOLOGIST DAIRY Work Phone: noms External Department UnsolicitedStart: 01-09-2025 End: 18-05-0429Wjeqmfbyj Result EncounterJayy Joshua BACTERIOLOGIST DAIRY Work Phone: noms External Department UnsolicitedStart: 01-04-2025 End: 82-99-6608qevmwfxlwjTpaen M CopseyFacility:[facility] HospitalStart: 12-28-2024 End: 78-22-1028yomkasipocDdhbl M CopseyFacility:[facility] HospitalStart: 12-20-2024 End: 59-26-5078zojozwbnsbNazqi M CopseyFacility:[facility] Hospitaltart: 12-13-2024 End: 09-94-1180Hecthu outpatient visit 25 minutesJayy Joshua NP Work Phone: noms [facility] IMComment on above:Chronic systolic congestive heart failure, NYHA class 2 (HCC) (Primary Dx); 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 ; Mixed hyperlipidemia ; Chronic atrial fibrillation (HCC); Centrilobular emphysema (HCC); Prediabetes; History of bladder cancer; History of gout; Hypomagnesemia; Mixed anxiety and depressive disorder; Degeneration of intervertebral disc of lumbar region with discogenic back pain and lower extremity painStart: 12-13-2024 End: 36-08-6776mwhkudzrzoQLPKOIT L POULOSNot AvailableStart: 12-13-2024 End: 44-73-8032zljpvggzsgSqory M CopseyFacility:[facility] Hospitaltart: 12-12-2024 End: 25-96-6307Spzjix outpatient visit 25 minutesBonita Kingsley MD Work Phone: uh [facility]healthlandsComment on above:Congestive heart failure, NYHA class 2, unspecified congestive heart failure type; 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; Chronic atrial fibrillation (Multi); 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; Essential (primary) hypertension; Mixed hyperlipidemia; Nonrheumatic aortic valve stenosis; Status post transcatheter aortic valve replacement; Nonrheumatic mitral valve regurgitation; PVD (peripheral vascular disease); Stage 2 chronic kidney disease; Venous insufficiency (chronic) (peripheral); Pulmonary hypertension (Multi); Former smoker; BMI 24.0-24.9, adultStart: 12-12-2024 End: 88-61-0861hqcrnydzifZLVUTC M IBRAHIMBrecksville [facility] AmbulatoryStart: 12-01-2024 End: 98-95-6816zegjzxidrcUqmgq M CopseyFacility:[facility] Hospitaltart: 11-17-2024 End: 07-07-8976Cqqukt outpatient visit 25 minutesMaría Anderson MD Work Phone: [facility] SWS IMComment on above:Sinus congestion (Primary Dx); Throat discomfort; Light headedness; Dysfunction of both eustachian tubes; Bruising; Epistaxis; Chronic systolic congestive heart failure, NYHA class 2 ([facility])Start: 11-17-2024 End: 93-51-6862vvjtyxkjwzIOYTCG L HILLNot AvailableStart: 11-08-2024 End: 89-20-6568rrkesgkvveMsc Yaser Al-MarrawiFacility:FTMCStart: 10-20-2024 End: 58-90-8245lfqsbzvdhgVuf Yaser Al-MarrawiFacility:FTMCStart: 10-17-2024 End: 85-82-6045vtduqyaqkbNqm Yaser Al-MarrawiFacility:FTMCStart: 10-07-2024 ambulatoryMhd Al-MarrawiFacility:FTMCStart: 10-04-2024 End: 16-38-5966Hwyqshhrs Result EncounterBuck Cerrato MD Work Phone: noms External Department UnsolicitedStart: 10-04-2024 End: 08-49-3502Vffrgskxr Result EncounterBuck Cerrato MD Work Phone: noms External Department UnsolicitedStart: 10-04-2024 End: 61-48-4142Apyytv outpatient visit 15 minutesMaria Fernanda Laws NP Work Phone: noms SWS IMComment on above:Acute non-recurrent pansinusitis (Primary Dx); Acute cough; Wheeze; Cerumen debris on tympanic membrane of left earStart: 10-04-2024 End: 03-25-7025jeolfqnpjiFSNUDU L Edwar AvailableStart: 09-14-2024 End: 32-42-1612wdghdudynaNposp M CopseyFacility:[facility] HospitalStart: 09-07-2024 End: 49-33-0180mszpyljmjeNuxos M CopseyFacility:[facility] HospitalStart: 08-24-2024 End: 25-70-6691viavqawpxnBrdqs M CopseyFacility:[facility] HospitalStart: 08-17-2024 End: 42-85-0849chzcweaicoHkrhr M CopseyFacility:[facility] HospitalStart: 08-08-2024 End: 99-78-0650yekvxuwfobZugphlv Fito RAMIREZFacility:FTMCStart: 49-50-7469lohaicqfjomiriam RAMIREZFacility:CD:[id number]: 08-04-2024 End: 68-40-0170Phlwsidmk Result EncounterGeneric External Data ProviderNOMS External Department UnsolicitedStart: 08-04-2024 End: 22-73-3660Nzejglguz Result EncounterGeneric External Data ProviderNOMS External Department UnsolicitedStart: 08-03-2024 End: 38-43-2925neyrjrzjbnQqkjf Vinny CopseyFacility:[facility] HospitalStart: 07-20-2024 End: 04-51-0739zmtldiswobDjeid M CopseyFacility:[facility] HospitalStart: 07-13-2024 End: 30-10-3433dxqtirckmrOrmfp M CopseyFacility:[facility] HospitalStart: 07-05-2024 End: 94-41-5081yhzphhlvomUutqe M CopseyFacility:[facility] HospitalStart: 06-15-2024 End: 02-03-3798Tckjfvplq department patient visitMaría Anderson MD Work Phone: [facility]-Emergency Room Work Phone: Start: 06-13-2024 End: 22-04-8971Avjeyx outpatient visit 25 minutesRosalinda Caro NP Work Phone: noms [facility] IMComment on above:Mixed hyperlipidemia (CMS/HCC) (Primary Dx); Prediabetes; 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 (CMS/HCC); Chronic atrial fibrillation (HCC) (CMS/HCC); Congestive heart failure, NYHA class 2, unspecified congestive heart failure type (CMS/HCC); Gastroesophageal reflux disease without esophagitis; Anemia, unspecified type; Lumbosacral spondylosis without myelopathy; History of gout; Centrilobular emphysema (CMS/HCC); Medicare annual wellness visit, subsequent; ACP (advance care planning)Start: 06-13-2024 End: 51-78-4863Zgobjdr encounter procedureGina Marilee Risaliti BACTERIOLOGIST DAIRY Work Phone: noKS HealthcareStart: 06-13-2024 End: 62-11-6258lxlvpotnnzMWHY Marilee RISALITINot AvailableStart: 05-18-2024 End: 29-30-0033Cdrkjf outpatient visit 10 minutesBonita Kingsley MD Work Phone: [facility] HospitalComment on above:Congestive heart failure, NYHA class 2, unspecified congestive heart failure type; BMI 24.0-24.9, adult; Former smokerStart: 05-18-2024 End: 77-20-2397elljkeibkjTWZVAG M [facility] AmbulatoryStart: 05-11-2024 End: 13-91-2745fhkiqytacfDlctv M CopseyFacility:[facility] Hospitaltart: 05-06-2024 End: 15-75-5876Ccalwcc encounter Kendell Anderson MD Work Phone: [facility]-Lab Main [place] Work Phone: Start: 05-06-2024 End: 79-79-7581vmnxaztxocCmjdvr HillFacility:[facility] Start: 05-04-2024 End: 47-72-0426ftucpxczuwTvqcf M CopseyFacility:[facility] Hospitaltart: 04-28-2024 End: 57-98-8242nccxtawqlqGatebdt GarmanFacility:[facility] HospitalStart: 04-25-2024 End: 59-49-9144FwsqujMqmrjvv Welfle MA Work Phone: [facility] HEALTHComment on above:Lumbosacral spondylosis without myelopathy (Primary Dx); Skin tear of left elbow without complication, initial encounter; Left leg cellulitisStart: 04-22-2024 End: 82-09-0433twbqflqmflDgofrr R DolceFacility:[facility] HospitalStart: 04-18-2024 End: 17-92-1090Khnydp outpatient visit 25 minutesBonita Kingsley MD Work Phone: [facility] HospitalComment on above:Nonrheumatic aortic valve stenosis; Status post transcatheter aortic valve replacement; Coronary artery disease, unspecified vessel or lesion type, unspecified whether angina present, unspecified whether red devil or transplanted heart; Pulmonary hypertension (Multi); Congestive heart failure, NYHA class 2, unspecified congestive heart failure type; Permanent atrial fibrillation (Multi); PVD (peripheral vascular disease) ([facility]); Former smoker; BMI 23.0-23.9, adultStart: 04-18-2024 End: 73-92-0342wuxdysjmjbKDMOTN [facility] AmbulatoryStart: 04-15-2024 End: 26-88-4827bzwjbgizqbZtrnjj R DolceFacility:[facility] Hospitaltart: 04-13-2024 End: 52-63-0039lidiibxoomISPBTE [facility] Centertart: 04-13-2024 End: 02-09-9886Yahvukkdnk hospital visit by Neda Tamayo Echo/Vasc [facility] 2[facility]osaComment on above:Nonrheumatic aortic valve stenosis; Presence of prosthetic heart valve; Status post transcatheter aortic valve replacementStart: 04-08-2024 End: 41-32-2335Wedwrzxzc encounterErasmo GURROLA Work Phone: noms CI PODIATRYStart: 04-08-2024 End: 26-59-3536nqxqcphztvPhnyxl R DolceFacility:[facility] HospitalStart: 04-06-2024 End: 84-91-5518kmjvipbeyjQUHAZV L HILLNot AvailableStart: 04-06-2024 End: 09-87-0287Ymtkne outpatient visit 40 minutesMaria Fernanda aLws NP Work Phone: [facility] IMComment on above:Skin tear of left elbow without complication, initial encounter (Primary Dx); Left leg cellulitis; Left leg swelling; Blood blisterStart: 03-30-2024 End: 07-39-1293Xxuauw flowsheetFemarleny Perla BACTERIOLOGIST DAIRY Work Phone: NOMS NE NEUROStart: 03-30-2024 End: 14-13-9782Ifhtoe flowsheetFelicia C Pan BACTERIOLOGIST DAIRY Work Phone: noms NE NEUROStart: 03-30-2024 End: 97-71-7519Umghxk outpatient visit 40 minutesFelicia Jose Perla BACTERIOLOGIST DAIRY Work Phone: noms NE NEUROComment on above:TIA (transient ischemic attack) (Primary Dx); Cervical spondylosis without myelopathy; HyperreflexiaStart: 03-30-2024 End: 01-52-6512smoroqsindZFLWHSL C COCOGELNot AvailableStart: 03-22-2024 End: 11-28-3504Dfwkjd flowsheetEmsuma Hook MD Work Phone: noms SWS DERMStart: 03-22-2024 End: 97-07-2876Qmnrms flowsheetEmsuma Hook MD Work Phone: NOCK SWS DERMStart: 03-22-2024 End: 95-19-8047Gczsga outpatient visit 10 minutesEmsuma Hook MD Work Phone: noms SWS DERMComment on above:Seborrheic keratosis (Primary Dx)Start: 03-08-2024 End: 80-05-0539qeoyznzihxXV Robert Hill Work Phone: [facility] Work Phone: Start: 03-08-2024 End: 05-21-7334WQ María [place] Work Phone: [facility] Work Phone: Start: 03-08-2024 End: 67-52-6869scthgfuhywYR Robert Hill Work Phone: [facility] Work Phone: Start: 03-08-2024 End: 94-91-7682FS [facility] Work Phone: [facility] Start: 03-07-2024 End: 00-64-7034Ajqmld outpatient visit 25 minutesJerachel Laws BACTERIOLOGIST DAIRY Work Phone: noms SWS IMComment on above:Nontraumatic tear of right rotator cuff, unspecified tear extent (Primary Dx)Start: 99-12-7522Mekakgvrlj and management of inpatientMD María Anderson Work Phone: [facility] Work Phone: Start: 02-26-2024 End: 61-79-8314zkiwwdiaofv encounterMD María Anderson Work Phone: [facility] Work Phone: Start: 02-26-2024 End: 67-56-5144VA María Anderson Work Phone: [facility] [place] [facility] Work Phone: Start: 02-17-2024 End: 73-31-5735Xbqvglbkwpld care manage srvc 7 day dischargeGinrekha Caro BACTERIOLOGIST DAIRY Work Phone: noms SWS IMComment on above:TIA (transient ischemic attack) (Primary Dx); Generalized muscle weakness; Chronic systolic congestive heart failure, NYHA class 2 (CMS/HCC)Start: 02-03-2024 End: 20-40-7456uqhhqbbwpgIR María Anderson Work Phone: [facility] Work Phone: Start: 02-03-2024 End: 86-52-8171Innhpvc encounter procedureMD María Anderson Work Phone: [facility] Work Phone: Start: 02-03-2024 End: 31-21-5735SJ María Anderson Work Phone: [facility] Work Phone: Start: 01-21-2024 End: 70-68-9412Mcchqspjgt and management of inpatientMD María Anderson Work Phone: [facility] [place] [facility] Work Phone: Start: 01-21-2024 End: 11-16-9336qrdjrdezsne encounterMD María Anderson Work Phone: [facility] Work Phone: Start: 01-21-2024 End: 75-86-7825RW María Anderson Work Phone: [facility] [place] [facility] Work Phone: Start: 01-06-2024 End: 95-46-6910abtamlxdhaQS María Anderson Work Phone: [facility] Work Phone: Start: 01-06-2024 End: 14-96-4964Nbgllst encounter procedureMD María Anderson Work Phone: [facility] Work Phone: Start: 01-06-2024 End: 62-22-8088CB María Anderson Work Phone: [facility] Work Phone: Start: 96-98-1058Guk-patient / Non-visitMD María Anderson Work Phone: [facility] Work Phone: Start: 96-34-3394RP María Anderson Work Phone: [facility] Work Phone: Start: 12-23-2023 End: 26-69-9105Skxgfzwbna and management of inpatientMD María Anderson Work Phone: [facility] [place] [facility] Work Phone: Start: 12-23-2023 End: 76-74-4169KB María Anderson Work Phone: [facility] [place] [facility] Work Phone: Start: 13-75-7846Ktf-patient / Non-visitMD María Anderson Work Phone: [facility] Work Phone: Start: 12-22-2023 End: 35-25-4112Foqtqecywh and management of inpatientMD María Anderson Work Phone: [facility] Work Phone: Start: 65-37-7436Ira-patient / Non-visitMD María Anderson Work Phone: [facility] Work Phone: Start: 12-22-2023 End: 31-07-4180SU María Anderson Work Phone: [facility] Work Phone: Start: 02-23-0319Nhkbihjqkk and management of inpatientMD María Anderson Work Phone: [facility] Work Phone: Start: 96-23-1763jmpwgutdnwp encounterMD María Anderson Work Phone: [facility] Work Phone: Start: 12-20-2023 End: 95-26-2494Rfayitfpfy and management of inpatientMD María Anderson Work Phone: [facility] Work Phone: Start: 12-20-2023 End: 41-52-4165ulzhbfwbuqd encounterMD María Anderson Work Phone: [facility] Work Phone: Start: 12-20-2023 End: 76-29-8549ZD María Hill Work Phone: [facility] [place] [facility] Work Phone: Start: 09-29-2023 End: 46-27-5065Fhipsp outpatient visit 25 minutesBonita Kingsley MD Work Phone: [facility] HospitalComment on above:Nonrheumatic aortic valve stenosis; Presence of prosthetic heart valve; Status post transcatheter aortic valve replacement; Permanent atrial fibrillation ([facility]); Coronary artery disease, unspecified vessel or lesion type, unspecified whether angina present, unspecified whether red devil or transplanted heart; Congestive heart failure, NYHA class 2, unspecified congestive heart failure type ([facility]); Pulmonary hypertension ([facility]); Hypertension, unspecified type; Pure hypercholesterolemia; PVD (peripheral vascular disease) ([facility]); Type 2 diabetes mellitus without complication, unspecified whether exterminator helper insulin use ([facility]); Stage 2 chronic kidney disease; Former smokerStart: 06-04-2023 End: 22-65-6916Tgyirhmohk and management of inpatientIN María [place] Work Phone: [facility] Work Phone: Start: 05-05-2023 End: 69-42-2330Iiopmvdcs to same day surgery [facility] María [place] Work Phone: [facility]: 05-05-2023 End: 27-92-4544lneimmlnrxCW María [place] Work Phone: [facility] Work Phone: Start: 04-13-2023 End: 85-28-6273sjfwsxrzxoGM María [place] Work Phone: [facility] Work Phone: Start: 04-13-2023 End: 69-21-6742Tzfqijrxfk RecurringIN María [place] Work Phone: [facility] Work Phone: Start: 04-03-2023 End: 83-86-7706Klbnyjytur hospital visit by Neda Tamayo Echo/Vasc [facility] 2[facility]cal[facility]osaComment on above:Nonrheumatic aortic valve stenosis; S/P aortic valve replacementStart: 04-02-2023 End: 69-06-9009imqnjpqpqrMG Robert Hill Work Phone: [facility] Work Phone: Start: 04-02-2023 End: 14-68-9169Othuerl encounter procedureMD María Anderson Work Phone: [facility]-Pre-Surgical Testing Work Phone: Start: 54-83-8603Qzblcfkwbl RecurringMD María Anderson Work Phone: [facility] Work Phone: Start: 03-30-2023 End: 00-09-0954uzckszwgoyZgqlpbi [employer] Other [place] [employer] Other start: 26-01-5583Lqsnpt outpatient new 45 minutes Emarohan OneilsFPBaptist Hospital NeurosurgeryStart: 64-81-6087Hfkaxl outpatient visit 25 minutesRobert Loretta Anderson Work Phone: [phone]-Bkxac [facility] [address] DO Work Phone: Start: 73-02-1620rosdflbrvrOeDr. Trey العلي Facility:[id number]: 01-19-2023 End: 85-19-9571Yzvihjoiv department patient visitDO Trey العلي Work Phone: [facility]-Emergency Room Work Phone: Start: 01-13-2023 End: 68-96-3690vnwdaqtosyPD Trey العلي Work Phone: [facility] Work Phone: Start: 01-13-2023 End: 91-44-2383Ojiwgkz encounter procedureDO Trey العلي Work Phone: [facility]-CT Scan Main [place] Work Phone: Start: 10-28-2022 End: 78-33-7497Feoiqpq encounter procedureDO Trey العلي Work Phone: [facility]-Lab Main [place] Work Phone: Start: 10-13-2022 End: 33-19-1237jqlnbogvrySKBBPZ H FAWWADFacility:T2Zzowd: 10-08-2022 End: 94-46-7457oqusuosehqCL JEFFREY PAY .Facility:J5Kytdd: 09-15-2022 End: 09-06-4447xemuujnzgpSCYVMM H FAWWADFacility:Y1Qubld: 08-13-2022 End: 37-29-2933drvvueucklKHDEPK H FAWWADFacility:E6Heaoj: 07-16-2022 End: 38-13-7555jjylkcwgiaDLPPLW H FAWWADFacility:E9Baufi: 06-17-2022 End: 10-62-1494fwxrxfrzxkLOSanford العليFacility:J3Zizxm: 06-16-2022 End: 57-86-4051oppvattnlgFUJWFH H FAWWADFacility:D8Vrdsh: 06-15-2022 End: 41-01-4538qczquittffPUSanford العليFacility:E6Gnmpo: 06-03-2022 End: 33-50-9830mijximmlmcEBSanford العليFacility:C4Gbose: 2022 End: 56-92-9286lyxvndizvyFLVicky العلي Work Phone: [facility] Work Phone: Start: 2022 End: 08-40-3109Wjnhzfyztb RecurringDO Trey العلي Work Phone: [facility]-Wound Care [place] Work Phone: Start: 05-22-2022 End: 90-30-7808ixscusucsfDK KRISTIN MCGUIRE .Facility:Y1Xaumf: 05-15-2022 End: 26-85-8982kvsepnjnopSFRVDL H FAWWADFacility:U3Xvdli: 04-24-2022 End: 78-25-4989wjwfsmtntfWKOWVN H FAWWADFacility:X2Rrqit: 04-15-2022 End: 91-68-1068iygqpxweltVCQZLK H FAWWADFacility:V5Xutiy: 04-08-2022 End: 59-22-6004wvmfaupjleIWUNFL H FAWWADFacility:C3Jptfw: 03-25-2022 End: 62-07-7838hkoxaauwyzFLMXZR H FAWWADFacility:V7Iemcu: 03-19-2022 End: 62-30-0613bidsbouhxwSWMikey العلي Work Phone: [facility] Work Phone: Start: 03-19-2022 End: 99-61-8683Udqlnnthso RecurringDO Trey العلي Work Phone: [facility] [place] Start: 03-16-2022 End: 25-41-6530fkxmeelfywLROGWE H FAWWADFacility:A5Kdwkp: 02-13-5553Tbmtr Nimo العلي Work Phone: [phone]-AizupOlivia Hospital and ClinicsZoar 600 DO Work Phone: Start: 65-00-0382Rdcziqh encounter procedureTrey العلي Work Phone: [phone]-EluucSt. [facility] [address] [place] Work Phone: Start: 91-90-2163sfkygchkicNculatoryDr. Bonita Kingsley Facility:[id number]: 79-86-5690ozcynirzjrIWXSTH H FAWWADFacility:N3Vyxev: 85-40-0902Tzpkioe encounter procedureTrey العلي Work Phone: [phone]-EmateOlivia Hospital and ClinicsRand 250 DO Work Phone: Start: 02-13-2022 End: 14-76-3314gvknsfdabzIJRZKE H FAWWADFacility:W5Xvoql: 90-48-6533Apjwnvazrx RecurringDO Trey العلي Work Phone: [facility] [place] Start: 02-03-2022 End: 59-09-2851Tmoaevla ReferredDO Trey العلي Work Phone: [facility]-Lab Main CampusStart: 97-77-5159azsedgisafQWZRQK H FAWWADFacility:K0Tzkly: 01-13-2022 End: 37-91-8659nsgpiqerevBNEPIA H FAWWADFacility:O8Uivcx: 01-08-2022 End: 63-83-1532Irluwss encounter procedureDO Trey العلي Work Phone: [facility]-XRay [place] [facility] Start: 01-02-2022 End: 32-30-1396dlhhiwaomrVZJROY H FAWWADFacility:P0Dpafs: 12-31-2021 End: 28-74-8493skfwxwybfqNFHEBE H FAWWADFacility:U6Swvif: 12-13-2021 End: 10-95-6176wxdhlusxseXBROZM H FAWWADFacility:V1Wbzvh: 10-09-2021 End: 92-51-9022kfazwmhgboDipaew Graham II Other [employer] Other Start: 24-69-8623Bwygku outpatient visit 15 minutes María Stevenson IIFPG [place] OrthopedicsStart: 88-57-5261Hrqiqb outpatient visit 25 minutesTrey العلي Work Phone: [phone]-Qoxkh [facility] [address] DO Work Phone: Start: 05-15-2021 End: 19-14-1682bucayxsedaRbiuny [employer] Other [employer] Other Start: 70-34-9757Ctusvd outpatient new 45 minutes María Stevenson IIFPG [place] OrthopedicsStart: 50-46-1237Numnjmw encounter procedureFani BerryParul Tamayo OrthopedicsStart: 29-90-2093Xfjgzhw encounter procedureTrey العلي Work Phone: [phone]-InlzubmiqdBROOKHAVEN [facility] Dominick Hinton [address] [place] Work Phone: Start: 30-25-7768Zirarfm encounter procedureTrey العليBksrnqQF-Eaegiprwku-MIZ Dominickigor Hinton [address] [place] Work Phone: Procedures DateProcedureProcedure DetailPerforming ClinicianStart: 86-38-2889EV cervical spine without contrastMaría Anderson MD Work Phone: Start: 45-33-8387ZL of head without contrastMaría Anderson MD Work Phone: Start: 56-46-3759Cumqp chest X-rayMaría Anderson MD Work Phone: Start: 64-04-0351GCF CBC WITH AUTO DIFFGeneric External Data ProviderStart: 93-22-3676MTGNQQLIRYET PCT AUTOGeneric External Data ProviderStart: 75-85-6179XXC BASIC METABOLIC PANELMichele L Patricia BACTERIOLOGIST DAIRY Work Phone: Start: 08-77-8248XAD MAGNESIUMMichele L Patricia BACTERIOLOGIST DAIRY Work Phone: Start: 38-12-0808Df lumbar spine w/o contrast material Buck Cerrato MD Work Phone: Start: 94-75-9627BI ABDOMEN 1VGeneric External Data ProviderStart: 97-26-7372Jjmrj chest X-rayMaría Anderson MD Work Phone: Start: 09-52-0589Tqdxl nucleic acid assayMaría Anderson MD Work Phone: Start: 39-17-2484FM of abdomen and pelvis without contrastMaría Anderson MD Work Phone: Start: 61-59-5610Axci tthrc r-t 2d w/wom-mode compl spec&colr Steff Kingsley MD Work Phone: Start: 19-01-5585I-ray of right kneeMD María Anderson Work Phone: Start: 66-69-4886Qqwun X-ray of right shoulderMD María Anderson Work Phone: Start: 69-83-0113QB María Anderson Work Phone: Start: 35-70-0253OK of head without contrastMD María Anderson Work Phone: Start: 41-00-1905Nbcph chest X-rayMD María Anderson Work Phone: Start: 62-10-4355Q-ray of right kneeMD María Anderson Work Phone: Start: 14-27-7523Wzqvy 1996 panel - Serum or PlasmaEly 2Start: 64-55-7488ZW angiography of headMD María Anderson Work Phone: Start: 41-32-8378QM angiography of neck vesselsMD María Anderson Work Phone: Start: 60-32-3933YZ of head without contrastMD María Anderson Work Phone: Start: 17-87-3923Alizz chest X-rayMD María Anderson Work Phone: Start: 25-93-7228B-ray of right kneeMD María Anderson Work Phone: Start: 57-66-0869K-ray of right kneeMD María Anderson Work Phone: Start: 76-81-9719YY of right kneeMD María Anderson Work Phone: Start: 58-16-0219Yqnns X-ray of left shoulderMD María Anderson Work Phone: Start: 97-78-2710Uxute X-ray of right femurMD Maíra Anderson Work Phone: Start: 44-00-3951L-ray of right kneeMD Mraía Anderson Work Phone: Start: 18-66-2033Ovpodlwv tomography of abdomen and pelvis with contrastMD María Anderson Work Phone: Start: 95-26-6407XC cervical spine without contrastMD María Anderson Work Phone: Start: 63-79-1190NH of head without contrastMD María Anderson Work Phone: Start: 51-79-9839LC of thorax with contrastMD María Anderson Work Phone: Start: 00-36-4948HU angiography of headMD María Anderson Work Phone: Start: 28-83-7661YR angiography of neck vesselsMD María Anderson Work Phone: Start: 18-55-2006TC of head without contrastMD María Anderson Work Phone: Start: 78-96-9401Odpjx chest X-rayMD María Anderson Work Phone: Start: 77-86-5095Ziwumrm endoscopyMD María Anderson Work Phone: Start: 60-56-3437Al[facility] r-t [facility]d w/wom-mode compl spec&colr Steff Kingsley MD Work Phone: Start: 79-83-0292Invyf culture for bacteria, including anaerobic screenMD María Anderson Work Phone: Start: 89-45-1696WO of urinary tractDO Trey العلي Work Phone: Start: 45-80-1370SgxkicezuyfmcrwbErcnnxc A Garman Work Phone: Start: 20-69-0128Ahcjj X-ray of right hipDO Trye العلي Work Phone: Start: 75-60-4144HyxmoyxzzrbclkaxCikgwac A Garman Work Phone: Aerobic microbial cultureDO Trey العلي Work Phone: Cardiovascular system repairTrey العلي Work Phone: Heart valve replacementTrey العلي Work Phone: Operation on bladderTrey العلي Work Phone: Operative procedure on hipTrey العليProstatectomy Trey العليProsthetic arthroplasty of the hipTrey العلي Work Phone: Repair of musculotendinous cuff of shoulderJetasneem العلي Work Phone: Total replacement of hipTrey العلي Work Phone: Comment on above:12/18/20; Plan of Treatment DateCare ActivityDetailAuthorStart: 20-92-6160JOmM/Tdap/Td Vaccines (2 - Td or Tdap)DTaP/Tdap/Td Vaccines (2 - Td or Tdap)[facility] Start: 07-26-2025 End: 15-58-4086Mxtbpts encounter pyfskfiyu71/11/2026 9:20 AM EST Office Visit [facility] [address] [facility] [address] [place] [phone] Bonita Kingsley MD [address] [facility] [address], [address] [place] [address] [facility]: 06-20-2025 End: 40-63-6894Smjuphj encounter wdwdmisxb67/06/2026 1:30 PM EST Office Visit [facility] [address] [place] [address] JXFI [place] [facility] MedicineStart: 12-31-2025Medicare Annual Wellness VisitMedicare Annual Wellness Visit (AWV)[facility] HospitalStgonvick: 50-79-3343PpneyzagbsgfispyLkaxfzsmrhuotgCwpvhflysi [facility] ClevelandStart: 04-13-2025 End: 57-11-5420AR Heart TransthoracicTransthoracic Echo Complete Echocardiography Routine Congestive heart failure, NYHA class 2, unspecified congestive heart failure type Chronic atrial fibrillation (Multi) Essential (primary) hypertension Nonrheumatic aortic valve stenosis Nonrheumatic mitral valve regurgitation Pulmonary hypertension (Multi) Expected: 04/13/2025 (Approximate), Expires: 12/12/2026[facility] Service Area Work Phone: Comment on above:Expected: 04/13/2025 (Approximate), Expires: 12/12/2026Start: 42-66-7417XcseluanoAkron Children's Hospitaltart: 97-43-8782NsnqrmoeiAkron Children's Hospitaltart: 03-28-2025 End: 56-68-9112GQ Chest WO contrastCT chest high resolution Imaging Routine Centrilobular emphysema (HCC) Chronic cough Expected: 03/28/2025 (Approximate), Expires: 06/28/2025[facility] Work Phone: Comment on above:Expected: 03/28/2025 (Approximate), Expires: 06/28/2025Start: 38-44-2411KhojzovkaAkron Children's Hospitaltart: 19-73-1265WxeiywlxeAkron Children's Hospitaltart: 87-72-6900AolnysborAkron Children's Hospitaltart: 55-68-4714YcdlizyvdAkron Children's Hospitaltart: 52-90-3382VoimetnnvAkron Children's Hospitaltart: 61-88-4015NhzyfffieAkron Children's Hospitaltart: 03-22-2025 End: 34-44-9082Uageuqs encounter mfduirisu48/08/2025 2:30 PM EDT Appointment [address] [address] [facility]Start: 03-22-2025 End: 57-91-0428BlhwphonwKettering Health [facility] CenterStart: 91-24-7296Wldgyvax admissionAkron Children's Hospitaltart: 72-54-5322Aancsfbo therapy procedureAkron Children's Hospitaltart: 71-22-9203Ohvwrkms to occupational therapistAkron Children's Hospitaltart: 95-72-6459Djqfvabk to Social ServicesAkron Children's Hospitaltart: 03-22-2025 End: 66-81-3635KeureoshuGuernsey Memorial Hospitalrt: 25-05-9256Euwhtmvww vaccinationST. [facility]OR[facility] HealthcareStart: 02-01-2025 End: 33-22-6763Yzlmgwq encounter dmanjqzru54/20/2025 3:30 PM EDT Office Visit [facility] [address] [place] [address] Jayy Joshua NP [address] [place] [address] Chronic systolic congestive heart failure, NYHA class 2 (HCC) (Primary Dx)NOMTracy Vaughany Internal MedicineComment on above:Chronic systolic congestive heart failure, NYHA class 2 (HCC) (Primary Dx)Start: 04-32-3140Bufbk panelLipid PanelPike Community Hospital Start: 01-16-2025 End: 59-20-0518Hvykatk encounter procedureMOBILE INF[facility]MARY [facility] IMStart: 12-14-2024 End: 68-70-4420Azpxc metabolic 1998 panel - Serum or PlasmaBasic metabolic panel Lab Routine Chronic systolic congestive heart failure, NYHA class 2 (HCC) Expe cted: 12/14/2024 (Approximate), Expires: 01/12/2025[facility] Work Phone: Comment on above:Expected: 12/14/2024 (Approximate), Expires: 01/12/2025Start: 12-14-2024 End: 93-03-2033Ifzievvap [Mass/volume] in Serum or PlasmaMagnesium Lab Routine Chronic systolic congestive heart failure, NYHA class 2 (HCC) Hypomagnesemia E xpected: 12/14/2024 (Approximate), Expires: 01/12/2025[facility] HealthcareComment on above:Expected: 12/14/2024 (Approximate), Expires: 01/12/2025Start: 12-13-2024 End: 91-51-1476Velosjo encounter procedureMOBILE INFIRMARY MEDICAL CENTER IMStart: 12-12-2024 End: 40-82-0464JVP W Auto Differential panel - BloodCBC and differential Lab Routine Anemia, unspecified type Expected: 12/12/2024, Expires: 06/13/2025[facility] HealthcareComment on above:Expected: 12/12/2024, Expires: 06/13/2025Start: 12-12-2024 End: 65-18-1905Htfkrpltlqxnw metabolic 2000 panel - Serum or PlasmaComprehensive metabolic panel Lab Routine Prediabetes Expected: 12/12/2024, Expires: 06/13/2025[facility] HealthcareComment on above:Expected: 12/12/2024, Expires: 06/13/2025Start: 12-12-2024 End: 01-03-3246Gveuwzdgtm a1c with eagHemoglobin a1c with eag Lab Routine Prediabetes Expected: 12/12/2024, Expires: 06/13/2025[facility] HealthcareComment on above:Expected: 12/12/2024, Expires: 06/13/2025Start: 12-12-2024 End: 05-17-8285Nmdjk 1996 panel - Serum or PlasmaLipid panel Lab Routine Mixed hyperlipidemia (CMS/HCC) Expected: 12/12/2024, Expires: 06/13/2025[facility] HealthcareComment on above:Expected: 12/12/2024, Expires: 06/13/2025Start: 11-04-2024 End: 82-73-4743Trirdow encounter vcikhpbcr25/23/2025 1:40 PM EDT Office Visit [facility] [address] [phone] Bonita Kingsley MD [address] [facility] [address], [address] [phone] [facility] HospitalStart: 43-95-7976Bukbo screening for protein Diabetes: Urine Protein ScreeningMercy Hospital South, formerly St. Anthony's Medical CenterStart: 64-09-3505Gnlor culture [facility] Hospitaltart: 43-65-0405YeaptrmheAkron Children's Hospitaltart: 80-94-6259Zhpbqvop identified in Blood by CultureBlood Culture [facility] Hospitaltart: 44-88-5305Rqoxkymm identified in Urine by CultureUrine CultureAkron Children's Hospitaltart: 05-18-2024 End: 91-41-2872Piyypzv encounter bhyzvfftc79/04/2024 9:30 AM EST Office Visit [facility] [address] [facility] [address] [place] [address] Bonita Kingsley MD [address] [facility] [address] [place] [address] [facility]: 12-01-2024Medicare Annual Wellness Visit Medicare Annual Wellness Visit (AWV)[facility]: 05-11-2024 End: 21-88-0835Diwxhdl encounter bmgovdrfk12/27/2024 9:45 AM EST Office Visit [facility] [address] [place] [address] María Anderson MD [address] [place] [address] [facility] IMStart: 05-02-2024 End: 92-08-3002Zujwq metabolic 2000 panel - Serum or PlasmaBasic Metabolic Panel Lab Routine Congestive heart failure, NYHA class 2, unspecified congestive hea rt failure type Expected: 05/02/2024 (Approximate), Expires: 04/18/2025[facility] Service Area Work Phone: Comment on above:Expected: 05/02/2024 (Approximate), Expires: 04/18/2025Start: 04-18-2024 End: 44-28-9138Stqkesf encounter /04/2024 2:00 PM EST Office Visit [place] [address] [facility] [address] [place] [address] Bonita Kingsley MD [address] [facility] [address], [address] [place], [place] [id number] [facility]: 56-23-0704AvmrkifwvruklzkkZlnmkyesyksgiy [facility]: 03-30-2024 End: 61-54-3496[place] Brain WO contrastMR brain wo contrast Imaging Routine TIA (transient ischemic attack) Expected: 03/30/2024 (Approximate), Expires: 03/30/2025[facility] Work Phone: comment on above:Expected: 03/30/2024 (Approximate), Expires: 03/30/2025Start: 03-30-2024 End: 39-95-0467WN Cervical spine WO contrastMR cervical spine wo contrast Imaging Routine Cervical spondylosis without myelopathy HyperreflexiaExpected: 03/30/2024 (Approximate), Expires: 03/30/2025[facility] HealthcareComment on above: Expected: 03/30/2024 (Approximate), Expires: 03/30/2025Start: 03-30-2024 End: 32-23-9718GP Heart TransthoracicTransthoracic Echo Complete Echocardiography Routine 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 Expected: 03/30/2024 (Approximate), Expires: 09/28/2025[facility] Service Area Work Phone: Comment on above:Expected: 03/30/2024 (Approximate), Expires: 09/28/2025Start: 03-30-2024 End: 31-03-2039Oquozfi encounter procedureNOMS NE NEUROComment on above:Arrived Start: 03-22-2024 End: 23-29-2039Arwohcq encounter tlmbaxegg46/08/2024 1:30 PM EDT Office Visit [facility] [address] [place] [address] Monica Hook MD [address] [place] [address] [facility] SWS DERMStart: 03-16-2024 End: 39-92-5646Zjqxeoc encounter knyycohhp77/02/2024 10:20 AM EDT [address] [place] [address] Bonita Kingsley MD [address] [facility] [address] [place] [address] [facility]: 79-02-9773N-ray of right kneeAkron Children's Hospitaltart: 03-08-2024 XR Knee - right 3 ViewsAkron Children's Hospitaltart: 12-69-6679Ntfjf X-ray of right shoulderAkron Children's Hospitaltart: 55-01-4289GI Shoulder - right ViewsAkron Children's Hospitaltart: 03-02-2024 End: 19-92-2202Cluafmy encounter wklniyupe70/18/2024 1:30 PM EDT Appointment [place] [address] [facility] [address] [place] [address] [facility]osaStart: 52-68-3263AKP, Provider: Bonita Kingsley, Status: Pen, Time: 11:50 AMFUV, Provider: Bonita Kingsley, Status: Pen, Time: 11:50 AMSt[facility] [address] DO Work Phone: Start: 03-01-2024 End: 21-22-5934Xdycxla encounter vqidvhngr63/17/2024 11:50 AM EDT Office Visit [place] [address] [facility] [address] [place] [address] Bonita Kingsley MD [address] [facility] [address] [place], [place] [phone] [facility] HospitalStart: 56-30-7224VobkqmwfwAkron Children's Hospitaltart: 16-51-5601TxsiwhudqAkron Children's Hospitaltart: 02-26-2024 Hospital admissionAkron Children's Hospitaltart: 94-07-2454DFDAZ-19 Vaccine ( season)COVID-19 Vaccine ( season)[facility]: 78-60-8318REFPW-19 Vaccine ( season) COVID-19 Vaccine ( season)[facility]: 63-81-8216Uhtnzmihk vaccinationInfluenza Vaccine (#1)[facility] CenterStart: 14-82-0241H-ray of right kneeXR knee RT 3V - NOT FOR ER USEKettering Health Dayton CenterStart: 18-75-2180RZ Knee - right 3 ViewsKettering Health Dayton CenterStart: 67-25-0771Fhipopkrab A1c measurementDiabetes: Hemoglobin A0XTDAF HealthcareStart: 44-46-9728Mssczuyv to neurologistKettering Health [facility] CenterStart: 01-22-2024 End: 30-42-5129GtfjmktlqKettering Health [facility] CenterStart: 40-34-2826Nygwrnppurpo [facility] CenterStart: 15-50-7313Vwwuhrfs admissionK[facility]tering Health [facility] CenterStart: 19-10-9206Epnclrnl therapy procedureK[facility]tering Health [facility] CenterStart: 16-61-7196Uidbmiel to occupational therapist [facility] CenterStart: 50-58-8274Tgocepil to speech and language therapy serviceK[facility]tering Health [facility] CenterStart: 01-21-2024 [facility] CenterStart: 62-06-1143I-ray of right kneeXR knee RT 3V - NOT FOR ER USEKettering Health [facility] CenterStart: 84-53-4853TD Knee - right 3 ViewsKettering Health Dayton CenterStart: 34-40-2163HjjivtrrnK[facility]tering Health [facility] CenterStart: 94-91-9132Ypzelbdq admissionK[facility]tering Health [facility] CenterStart: 59-27-5918Zlcllfkm to clinical allergistK[facility]tering Health [facility] CenterStart: 80-58-0062FsjkvycquKettering Health [facility] CenterStart: 00-89-2667Ucezeqqd of Right Knee Joint, Percutaneous ApproachK[facility]tering Health [facility] CenterStart: 20-20-5688XdvtiplsbgznRkjipkllvMercy Health [facility] Hospital Start: 73-18-8500Oassivid to rehabilitation physicianK[facility]tering Health [facility] CenterStart: 86-84-5056Savsoafv therapy procedureK[facility]tering Health [facility] CenterStart: 00-24-2851Nfyibgbe to occupational therapistK[facility] Health [facility] CenterStart: 06-02-4267Eqwmzihu to Social ServicesK[facility] Health [facility] CenterStart: 50-62-9868HmteoohlgK[facility]tering Health [facility] CenterStart: 55-10-5275Krnhgzhn admissionK[facility]tering Health [facility] CenterStart: 12-20-2023 [facility] CenterStart: 93-35-0724WfxnysptttgcMcidbnbhs [facility] CenterStart: 57-22-9948ZT Knee - right WO contrastKettering Health [facility] CenterStart: 15-24-9932QZ of right kneeCT knee RT wo [facility] Centertart: 04-45-8232Xrqalccy admissionK[facility]tering Health [facility] CenterStart: 78-92-3227Vituacbd therapy procedureAkron Children's Hospitaltart: 06-75-2762Mbjvemqv to occupational therapistKettering Health [facility] CenterStart: 57-74-2064CxbrkjxzeAkron Children's Hospitaltart: 20-66-7779Gfydy X-ray of left shoulderXR shoulder LT min 2V*[facility] Hospitaltart: 36-78-3232MF Shoulder - left ViewsAkron Children's Hospitaltart: 03-02-5622Tlltm X-ray of right femurXR femur RT 2V* [facility] CenterStart: 68-53-6929Z-ray of right kneeXR knee RT 4V*[facility] CenterStart: 56-94-4152RW Femur - right 2 Views [facility]: 36-81-1831ZA Knee - right 4 Views [facility]: 53-23-4489Azxlsrkw tomography of abdomen and pelvis with contrastCT abdomen pelvis w [facility] Centertart: 34-25-3316YT Abdomen and Pelvis W contrast [facility] CenterStart: 83-96-9824CG cervical spine without contrastCT cervical spine wo [facility] CenterStart: 15-29-1695RD Cervical spine WO contrastKettering Health [facility] CenterStart: 72-62-8690GS Chest W contrast [facility] CenterStart: 24-40-5135FL of head without contrast CT head/brain wo [facility] CenterStart: 02-50-6847YH of thorax with contrastCT chest w [facility] Centertart: 89-32-6873EE Unspecified body region WO [facility] CenterStart: 61-08-0829Qlbbcdxw to cardiologMercy Health [facility]ard Hospital Start: 83-90-2104YcgelzfjmAkron Children's Hospitaltart: 10-85-8041AlotnturmAkron Children's Hospitaltart: 95-34-3397Lelwfvqv to neurologistAkron Children's Hospitaltart: 07-69-9723Jvkcujku admissionAkron Children's Hospitaltart: 05-05-2023 End: 45-42-3152HqayovvkwAkron Children's Hospitaltart: 81-84-3969NCGB, Provider: [place] [facility]VI ULTRASOUND 01,[id number], Status: Pen, Time: 1:00 PMECHO, Provider: [place] [facility] ULTRASOUND 01,[id number], Status: Pen, Time: 1:00 PMMP- [facility] [address] DO Work Phone: Start: 12-89-9386UFF, Provider: Bonita Kingsley, Status: Pen, Time: 9:20 AMFUV, Provider: Bonita Kingsley, Status: Pen, Time: 9:20 AMMPOwatonna Clinic 250 DO Work Phone: Start: 81-84-9009NBLLN-19 Vaccine ( season) COVID-19 Vaccine ( season)[facility]: 75-10-7039Neqoquped vaccinationInfluenza Vaccine (#1)[facility]: 07-46-5730Chgkmrit identified in Blood by CultureAkron Children's Hospitaltart: 06-43-7649NUF, Provider: Bonita Kingsley, Status: Pen, Time: 11:10 AMFUV, Provider: Bonita Kingsley, Status: Pen, Time: 11:10 AM [facility] Work Phone: Start: 28-60-3635KPCN, Provider: [place] [facility] ULTRASOUND 01,[id number], Status: Pen, Time: 10:45 AMECH, Provider: [place] [facility] ULTRASOUND 01,[id number], Status: Pen, Time: 10:45 [facility]: start: [phone], Provider: Bonita Kingsley, Status: Pen, Time: 11:20 AMFUV, Provider: Bonita Kingsley, Status: Pen, Time: 11:20 [facility] Work Phone: Start: [phone] RecurringTraumatic wound [facility] [place]: 02-03-2022 End: [phone] ReferredDeparted ReferredKet[facility]tr- [facility] Main CampusStart: [id number] Vaccine (4 - Pfizer series)COVID-19 Vaccine (4 - Pfizer series)[facility] HospitalStart: 03-03-2021 Creatinine measurementCreatinine [facility]: 91-45-1686Dpdxjcpfa measurementPotassium [facility] [place] Start: 79-21-2205Pnpan metabolic 1998 panel - Serum or PlasmaBasic Metabolic UvawxTO-Wgxkcvpbta-IKE [facility] [address] [place] Work Phone: Start: 19-76-2909XAW W Auto Differential panel - Blood Complete Blood NruoaKO-Zhjqhcggsm-HJD [facility] [address] [place] Work Phone: Start: 59-89-9538UO/INRPT/WTNSA-Mameyrbdut-EPC [facility] [address] [place] Work Phone: Start: 41-58-1329Cesap of magnesiumMagnesium, Serum RV-Xbtzemailu-CBN [facility] [address] [place] Work Phone: Start: 17-34-1424HQJ W Auto Differential panel - Blood Complete Blood LhuunPS-Aoeaomzjzh-DIC [facility] [address] [place] Work Phone: Start: 50-32-8773PJ/INRPT/EUMQJ-Iadbxyfygi-SEO [facility] [address] [place] Work Phone: Start: 69-29-9908Edas, electrolytes and creatinine measurementRenal Function IhdzaFO-Nlxkqlhqdv-ETB [facility] [address] [place] Work Phone: Start: 57-54-6149JCaR/Tdap/Td Vaccines (1 - Tdap) DTaP/Tdap/Td Vaccines (1 - Tdap)[facility]: 73-60-8892GOH High Risk: (Elderly (60+) or Population) (1 - 1-dose 75+ series)RSV High Risk: (Elderly (60+) or Population) (1 - 1-dose 75+ series)[facility]: 35-37-5689Ovisifexr B Vaccines (1 of 3 - Risk 3-dose series)Hepatitis B Vaccines (1 of 3 - Risk 3-dose series) [facility]: 87-87-2532Emajhv Vaccines (1 of 2)Zoster Vaccines (1 of 2)[facility]: 76-98-4708Xxecntlrw A Vaccines (1 of 2 - Risk 2-dose series)Hepatitis A Vaccines (1 of 2 - Risk 2-dose series)[facility]: 82-55-9985Xibcd screening for proteinDiabetes: Urine Protein ScreeningUnProMedica [facility] Hospital: 52-89-2708Jnpiuxru foot examinationDiabetes: Foot ExamUnProMedica Toledo Hospital: 41-33-6709Hoytnkkt screeningDiabetes: Retinopathy Screening [facility]: 93-60-5292Lngalowhig A1c measurement Diabetes: Hemoglobin K0FZdpboqxqcmProMedica Toledo Hospital: 65-09-7431Yxbxm panelLipid PanelUnProMedica Toledo Hospital: 1936Medicare Annual Wellness VisitMedicare Annual Wellness Visit (AWV)[facility]: 57-45-8990Gyciitqyw for osteoporosisBone Density ScanUnBucyrus Community HospitalAnion gap measurementMercy Health Lorain Hospital Basophils [#/volume] in Blood by Automated [facility] SouthwoodsBasophils/100 leukocytes in Blood by Automated [facility] SouthwoodsBilirubin measurementMercy Health Lorain HospitalBody weight [facility] HospitalCalcium carbonate/Total in [facility] HospitalCalcium hydrogen phosphate dihydrate/Total in [facility] WestCalcium oxalate monohydrate/Total in [facility] WestCalcium phosphate levelMercy Health Lorain HospitalCalculus analysis with calculus photography [Interpretation] in WashingtonMercy Health Lorain HospitalCalculus analysis, qualitativeMercy Health Lorain HospitalCalculus analysis, quantitativeMercy Health Lorain HospitalCalculus analysis, quantitative, infrared spectroscopyMercy Health Lorain HospitalCBC W Auto Differential panel - BloodCBC and differential Lab Routine Anemia, unspecified type Ordered: 06/13/2024[facility] HealthcareComment on above:Ordered: 06/13/2024ellular material [Mass/mass] of Stone by Estimated [facility] HospitalCholesterol [Mass/volume] in Serum or Plasma [facility] HospitalCobalamin (Vitamin B12) [Mass/volume] in Serum or PlasmaVitamin B12 Lab Routine Anemia, unspecified type Ordered: 06/13/2024 [facility] [employer] Work Phone: Comment on above:Ordered: 06/13/2024omprehensive metabolic 2000 panel - Serum or PlasmaComprehensive metabolic panel Lab Routine Prediabetes Congestive heart failure, NYHA class 2, unspecified congestive heart failure type (CMS/HCC) Ordered: 06/13/2024[facility] HealthcareComment on above: Ordered: 06/13/2024ystine measurementMercy Health Lorain Hospital Determination of calculus chemical compositionMercy Health Lorain Hospital Eosinophils/100 leukocytes in Blood by Automated countMercy Health Lorain HospitalErythrocyte distribution width [Ratio] by Automated countMercy Health Lorain HospitalErythrocytes [#/volume] in [facility] SpringfieldEvaluation procedureMercy Health Lorain HospitalFerritin [Mass/volume] in Serum or PlasmaFerritin Lab Routine Anemia, unspecified type Ordered: 06/13/2024[facility] CenterComment on above:Ordered: 06/13/2024Glomerular filtration rate [Volume Rate/Area] in Serum, Plasma or Blood by Creatinine [facility] HospitalHematocrit [Volume Fraction] of BloodMercy Health Lorain HospitalHemoglobin [Mass/volume] in BloodMercy Health Lorain HospitalHydroxyapatite [Energy Difference] in 24 hour UrineMercy Health Lorain HospitalINR in Platelet poor plasma by Coagulation assayMercy Health Lorain HospitalIron and Iron binding capacity panel - Serum or Plasma Iron and TIBC Lab Routine Anemia, unspecified type Ordered: 06/13/2024[facility] HealthcareComment on above:Ordered: 06/13/2024Laboratory data interpretation [facility] HospitalLeukocytes [#/volume] corrected for nucleated erythrocytes in Blood by Automated counMercy Health Lorain Hospital Leukocytes [#/volume] in BloodMercy Health Lorain HospitalLymphocytes [#/volume] in Blood by Automated [facility] Lymphocytes/100 leukocytes in Blood by Automated [facility] SouthwoodsMCH [Entitic mass] by Automated [facility] MCHC [Mass/volume] by Automated [facility] SouthwoodsMCV [Entitic volume] by Automated [facility] SouthwoodsMonocytes [#/volume] in Blood by Automated [facility] Monocytes/100 leukocytes in Blood by Automated [facility] SouthwoodsNeutrophils [#/volume] in Blood by Automated [facility]woodsNeutrophils/100 leukocytes in Blood by Automated [facility] SouthwoodsNewberyite/Total in [facility] HospitalNucleated erythrocytes [Presence] in Blood by Automated [facility] SouthwoodsPatient EducationKettering Health Dayton Ctr Work Phone: Patient referralKettering Health Dayton Ctr Work Phone: Platelet mean volume [Entitic volume] in Blood by Automated [facility] SouthwoodsPlatelets [#/volume] in Blood [facility] HospitalProthrombin time (PT)[facility] HospitalRespiratory pathogens DNA and RNA panel - Nasopharynx by SHARRI with non- probe detectionAkron Children's Hospitalpecimen source subject [Type] [facility] HospitalTriamterene measurementMercy Health Lorain HospitalTriple phosphate/Total in [facility] LM-Hpdwkzwnsq-ZCP [facility] [address] [place] Work Phone: Community HospitalNEGATED: Highlighted row has been ruled out!Planned Goals not fzlggcgxtxTR-Mckufagsyy-IBU [facility] [address] [place] Work Phone: Immunizations Immunization DateImmunizationNotesCare CosldurhIpjfjjei50-92-4532lboiufu toxoid, reduced diphtheria toxoid, and acellular pertussis vaccine, adsorbedSaint Elizabeth [facility]bron Work Phone: [facility]11-30-2023Influenza, Seasonal, Quadrivalent, AdjuvantedGina Risaliti BACTERIOLOGIST DAIRY Work Phone: NOSaint Joseph Health CenterSdlpvxsamm02-75-6657typypbwin virus vaccine, unspecified formulationGina Risaliti BACTERIOLOGIST DAIRY Work Phone: noSaint Joseph Health CenterIxidpzenqn87-16-6526taqocypjz, high dose seasonal, preservative-freeRobert Alta View Hospital Work Phone: [phone]-IqpmeRyan [place] [address] DO Work Phone: [phone] virus vaccine, unspecified formulation[address] Work Phone: [phone] High-Dose Quadrivalent 0.7 ML Intramuscular Suspension Prefilled SyringeTrey Da Silva Zohra Work Phone: [phone]-SgezpRyan Ville [address] DO Work Phone: [phone]-RkeEFuhj COVID-19 Vacc 30 MCG/0.3ML Intramuscular SuspensionTrey Da Silva Zohra Work Phone: [phone]-RczmaRyan Ville [address] DO Work Phone: [phone]-PmnJWzof COVID-19 Vacc 30 MCG/0.3ML Intramuscular SuspensionTrey Da Silva Zohra Work Phone: [facility]01-21-2021Pfizer- BioNTech COVID-19 Vacc 30 MCG/0.3ML Intramuscular SuspensionTrey A Zohra Work Phone: [facility]12-11-2020influenza virus vaccine, unspecified formulationTrey Yanman Work Phone: [facility] Work Phone: [phone] trivalent influenza vaccine, adjuvanted, preservative freeTrey العلي Work Phone: [phone]-Bxgwudcckh-CMC [employer] [address] [place] Work Phone: [phone] trivalent influenza vaccine, adjuvanted, preservative freeTrey Yanman Work Phone: [phone]-Qvrlgscvmf-CMC [employer] [address] [place] Work Phone: [phone] trivalent influenza vaccine, adjuvanted, preservative freeTrey Yanman Work Phone: [phone]-Pxddkxxffi-CMC [facility] [address] [place] Work Phone: [phone] conjugate vaccine, 13 valent Trey A Zohra Work Phone: [phone]-Twaxtqnfrs-CMC [facility] [address] [place] Work Phone: [phone], high dose seasonal, preservative-freeTrey Yanman Work Phone: [facility]11-16-2017influenza, high dose seasonal, preservative-freeJames Johnston Other [employer] Other [id number] virus vaccine, unspecified formulationIN María [place] Work Phone: [facility]12-06-2016influenza virus vaccine, unspecified formulationSaint Elizabeth Hebron Work Phone: [facility]12-06-2016influenza, high dose seasonal, preservative-freeJames Johnston Other [employer] Other [id number] influenza, intradermal, preservative freeTrey Yanman Work Phone: [phone]-Jubxpggxmw-CMC [facility] [address] [place] Work Phone: [phone], high dose seasonal, preservative-freeJames Johnston Other [place] [employer] Other [id number] virus vaccine, unspecified formulationMD María Anderson Work Phone: [facility]10-25-2013seasonal influenza, intradermal, preservative freeGina Risaliti BACTERIOLOGIST DAIRY Work Phone: [facility] CenterPdumaoimvo25-00-9352olidvyv and diphtheria toxoids, adsorbed, preservative free, for adult use (5 Lf of tetanus toxoid and 2 Lf of diphtheria toxoid)Fani Johnston Other [facility]04-20-2011 pneumococcal polysaccharide vaccine, 23 valAlessandro Yanman Work Phone: [facility] Hospitalinfluenza virus vaccine, unspecified formulationTrey Da Silva Zohra Work Phone: [facility] Work Phone: Comment on above:[id number] polysaccharide vaccine, 23 valAlessandro Yanman Work Phone: [facility] Work Phone: Comment on above:2010 Payers DatePayer CategoryPayerPolicy [id number]-mqi [id number] Health InsuranceMEDICAL MUTUAL .[id number]3-11-2597Nawakri71-39-2572 Medicare1.2.840.865042.1.13.647.2.7.3.163309.315 [id number] 2.16.840.7.60944[id number] 2.16.840.5.308389.2726-15-1936 [id number] 2.16.840.1.076530.3.579.2.909105-33-4323Skmvhlh8803139 2.16.840.1.676340.3.579.2.87648-45-0244Frnqqfr9888484 2.16.840.1.754552.3.579.2.13077-86-1783Dfxtjbj0133004 2.16.840.1.652081.3.579.2.47142-41-2453Kczgeow6965061 2.16.840.1.758933.3.579.2.13547-51-8320Ahrbzex1561348 2.16.840.1.406604.3.579.2.55540-18-0894Ogezuov6484457 2.16.840.1.634261.3.579.2.42350-99-5338Hpfrfdp1773317 2.16.840.1.594848.3.579.2.76269-38-7820Acnnhsa8248620 2.16.840.1.199121.3.579.2.37632-79-5257Sltdvqi6250122 2.16.840.1.201624.3.579.2.41920-49-6100Jpxwgnt5570549 2.16.840.1.574770.3.579.2.21131-12-8490Diskwpa9347443 2.16.840.1.844390.3.579.2.39785-89-3957Hxcgqny2774071 2.16.840.1.119236.3.579.2.36408-63-9871Bsmrklf8990984 2.16.840.1.072012.3.579.2.23084-86-0930Pgyibag9281771 2.16.840.1.339857.3.579.2.56521-23-1453Qiwffch2380346 2.16.840.1.419637.3.579.2.77762-88-6853Sfqmdlg6926293 2.16.840.1.123965.3.579.2.08075-03-8168Xwclwpl8790084 2.16.840.1.659043.3.579.2.31410-47-5501Susexog5575436 2.16.840.1.802245.3.579.2.39591-18-4914Zvjboei6612883 2.16.840.1.892057.3.579.2.24719-70-2474Lunuzsz5014364 2.16.840.1.220998.3.579.2.40545-72-1115Rrswbxz7070319 2.16.840.1.408710.3.579.2.85171-48-0730Xsvlolx9570728 2.16.840.1.092764.3.579.2.40976-25-6234Sreazze9578492 2.16.840.1.990126.3.579.2.69303-94-4272Vxeaklr397025410 2.16.840.1.324796.3.579.2.19409-67-8796Izdegzj77484433 2.16.840.1.174212.3.579.2.697043-84-3448Svaoqqm09102036 2.16.840.1.178632.3.579.2.56399-42-5942Vrvoldt85341654 2.16840.1.329365.3.579.2.04235-62-0350Izridjg30768658 2.16.840.1.110323.3.579.2.20513-76-8067Owjqgpu11184867 2.16840.1.877021.3.579.2.34516-52-3851Heqnodi68287779 2.16840.1.652995.3.579.2.19978-83-7626Nxtoqqx800632209 2.840.1.902885.3.579.2.976626-25-8990Shyhgco955655706 2.840.1.476403.3.579.2.650014-34-4493Scooffz932580963 2.840.1.567280.3.579.2.895282-71-3117Ygcgtob83320585 2.840.1.140390.3.579.2.70236-59-8447Dziuynz74210099 2.840.1.200198.3.579.2.46687-28-5249Ghuvstl15066638 2.840.1.324011.3.579.2.61803-19-5981Jgmcwve69675193 2.16840.1.862455.3.579.2.91096-59-0014Ovwafgi65090802 2.16840.1.041786.3.579.2.74609-28-8605Oruykms71515096 2.16840.1.865988.3.579.2.15677-22-9837Cfqhcst48514531 2.16.840.1.439258.3.579.2.84094-60-3966Ujixkfr62456761 2.16.840.1.758437.3.579.2.35810-05-5426Vkcqrob52026992 2.16.840.1.050823.3.579.2.89000-82-3314Itqakej97566872 2.840.1.387629.3.579.2.11285-23-2701Odpwcmq59923107 2..840.1.085536.3.579.2.37332-47-6805Yzhksqq38870771 2..840.1.473190.3.579.2.35074-69-5721Eosdlhw72940236 2.840.1.487152.3.579.2.09334-18-9676Zfcjclt79791313 2.840.1.750397.3.579.2.18237-59-4774Pikttel58773356 2..840.1.346403.3.579.2.24606-40-3019Ssqzdbw34929496 2.840.1.892521.3.579.2.35277-39-3003Glthldd31152568 2.840.1.325473.3.579.2.79609-40-8515Nrhmkal80486127 2.16.840.1.536458.3.579.2.47925-77-3251Qbvheze68342644 2..840.1.975656.3.579.2.81470-57-5750Ywugaed68627068 2.16.840.1.382368.3.579.2.92411-17-3306Ncmnrsp89985583 2.16.840.1.751839.3.579.2.32482-13-5650Tyvernt25988968 2.16.840.1.973474.3.579.2.66776-17-3728Lrhuafa33907228 2.16.840.1.619745.3.579.2.15541-97-4497Kcwtzie85285419 2.16.840.1.505503.3.579.2.75124-37-0890Eecsjxx71579389 2.16.840.1.896111.3.579.2.94172-40-4773Cgaxuev97686160 2.16.840.1.067039.3.579.2.06095-66-3352Efvuelh33950400 2..840.1.455651.3.579.2.42948-59-3670Yaaflox09861071 2.16.840.1.130064.3.579.2.93130-95-5780Wvbular09710337 2.16.840.1.862400.3.579.2.882538-47-8059Wvzaimc33041304 2.16.840.1.549870.3.579.2.295383-28-8465Pdilcip34032298 2.840.1.061132.3.579.2.643947-86-4734Czptyqe05156884 2.16.840.1.739681.3.579.2.121543-39-3497Zbyxyzi8922687 2..840.1.886115.3.579.2.567533-28-4114Ttzjwqa1968191 2.16.840.1.266607.3.579.2.183162-38-5249Uzqokxc5744821 2.16.840.1.642711.3.579.2.815343-68-2800Citibdt2340117 2..840.1.574150.3.579.2.1259MedicareMedicare Rehab- Part [id number] pp0snu96-u0p7-2r09-m111-0a1z9wlt71f5Ahhocis214589-48 mi1u7751-1z0i-7303-8724-l694jp4q7fjhRfvneue64634198 2.16.840.1.873175.3.579.2.484Amktmya50133622 2.0.1.386697.3.579.2.531 Pqlqdan50777521 2.16.840.1.902097.3.579.2.531 Social History DateTypeDetailFacilityStart: 09-29-2023 End: 15-69-5066Cbisgh smokerFormer cqpjqvME-Ageymjioyw-PDD [facility] [address] [place] Work Phone: Comment on above:daily;QUIT 2000 1PPD;2-3 coffees daily;Start: 09-29-2023 End: 86-46-5670Arb Assigned At [facility] [employer] Other Start: 02-04-2022 End: 74-12-9249Xfdqndw smoking status NHISEx-smoker (finding)[facility]: 77-60-1212Pih [facility]igned At [facility]: 01-19-2023 End: 41-47-6913Lgpnklf smoking status NHISNever smoked tobacco (finding) [facility] HospitalTobaintegris community [facility] [place] smoking status NHISTobacco smoking consumption unknownP[facility] Work Phone: Start: 15-74-0313Ouf Assigned At BirthNot on file [facility] Work Phone: Start: 03-24-2023 End: 91-69-2325Gsxcuwag to SARS-CoV-2 (event)Not sureUnBucyrus Community Hospital End: 49-64-9012Egydbpr of tobacco useCurrent smokerUnBucyrus Community Hospital Work Phone: End: 52-01-2180Tujicnj of tobacco useCigarette SmokerUnBucyrus Community Hospital Work Phone: Start: 85-27-6684Vreslti use and exposureFormer smokeless tobacco userUnBucyrus Community Hospital Work Phone: History of tobacco useChews TobaccoUnBucyrus Community Hospital Work Phone: Start: 09-29-2023 End: 91-61-6292Wyxushqep beverage intakeCurrent drinker of alcohol (finding) [facility] Work Phone: Start: 01-07-2023 End: 00-43-9679Shjkltc use and exposureSmokeless tobacco non-userNOMS Healthcare Start: 48-07-8781Ovfuaiz CommentEx-heavy cigarettes smoker (20-30/day)[facility] HealthcareStart: 80-21-3735Yhrtucv Comment.caffeine intake:Coffee, 3-4 cups per day.[facility] HealthcareStart: 34-12-9624OrwCopr (finding)[facility] Hospitaltart: 03-22-2025 End: 63-42-2048JDBU Follow upSDOH Follow upOhio [facility]ing [facility] Work Phone: Start: 13-93-7179EcxLilbJXBO HealthcareNEGATED: Highlighted row--CD-Mvypzjhydq-HPP [facility] [address] [place] Work Phone: Medical Equipment Procedure CodeEquipment CodeEquipment Original TextEquipment IdentifierDates Cystoscopy, with ureteral calculus manipulation and stent placement ()[id number] FDAStart: 60-05-1272Sqblndxalhaf, hip, total, anterior approach()[id number] FDAStart: 28-31-8827Hogchjnjwjbj, hip, total, anterior approach ()[id number] FDAStart: 66-63-8814Iarkqixjrntv, hip, total, anterior approach()[id number] FDAStart: 15-64-5195Rpizuvadhvnt, hip, total, anterior approach ()[id number] FDAStart: 70-67-9764Flnwoaivvatf, hip, total, anterior approach()[id number] FDAStart: 43-56-7159Qfritsgutvmz, hip, total, anterior approach ()[id number] FDAStart: 12-18-2020 Goals DatePatient GoalDesired Activity/State Functional Status QbdnPdymhjeyzgWdmgxzRoelhrvu74-79-5431Ncdleicozy statusPatient at Baseline [facility] Work Phone: [phone]qmjb Health Questionnaire 2 item (PHQ-2) [Reported][facility] CenterHqgaeysyag86-75-1474Yyrrcgkudd statusPatient at BaselineOhio State Harding Hospital Work Phone: [phone]ahe statusPatient at Baseline [facility] Work Phone: [phone]emogzul statusPatient at Baseline [facility] Work Phone: 1(205) [phone]phimqmp statusPatient is Progressing Toward [facility] Work Phone: [phone] statusPatient is Progressing Toward [facility] Work Phone: [phone]g statusPatient is Progressing Toward [facility] Work Phone: [phone]ww statusPatient at Baseline [facility] Work Phone: NEGATED: Highlighted rowFunctional performance Functional status health issues are not documented AsbesigJF-Ebshovbsjs-ILF [facility] [address] [place] Work Phone: Mental Status AjmhLjeajovoqeHgksyaHwakcexv25-83-8730Nfmrnndco functionCognitive Status Patient at [facility] Work Phone: [phone]) [phone]za functionPatient at Baseline [facility] Work Phone: 1([phone]) [phone]tseoh functionPatient at Baseline [facility] Work Phone: [phone] functionPatient at Baseline [facility] Work Phone: [phone]spzeoela functionPatient is Progressing Toward [facility] Work Phone: [phone] functionPatient at Baseline [facility] Work Phone: [phone] functionCognitive Status Patient at [facility] Work Phone: NEGATED: Highlighted rowCognitive function [Interpretation]Cognitive status health issues are not documented Disease VN-Jexhvigefb-YVC [facility] [address] [place] Work Phone: Clinical Notes 03-02-2020 to 03-28-2025 Note Date & JbdbHovoMjenhkbl31-54-4828 History of Present illness Narrative* María Anderson MD - 03/28/2025 11:00 AM EDT Images from the original note were not included. Fani Chua is a 89 y.o. male presents with chief complaint of Hospital Follow- up ([place] [facility] [place] due to a fall. Two lacerations on forehead, both sutured. Several skin tears. He is following with [facility] and has [facility] nursing once weekly. He is going [...] emergency care, [facility] not do so[facility] that [facility] nose was discolored, appearing [...] Wt 157 lb SpO2 95% BMI 23.18 kg/m Smoking Status Former BSA 1.86 m BP Readings from Last 3 Encounters: 03/28/25 106/60 02/01/25 124/74 12/13/24 120/70 Wt Readings from Last [...] week. Patient was seen and examined with Rosalinda Caro CNP. History was confirmed and verified. Orellana elements of the exam were also completed. [...] calculus stricture CYSTOSCOPY 05/05/2023 NEUROMA SURGERY Right DC TOTAL HIP ARTHROPLASTY Left 03/29/2009 PROSTATECTOMY 1997 [...] Rash Other Reaction(s): Rash documented in this encounterMer[facility], formerly [facility] CenterPvuhjjhkuc27-25-8763 Hospital Discharge instructionsAmbulatory Orders* Initiate Home Health Time Frame: 03/22/25, Location: Determined By Patient Additional Instructions Continue Coumadin as per chronic orders Home health to manage: -RN/PT/OT to eval and treat -Monitor VS per protocol -High fall risk precautions -Perform cardiovascular assessments -Assist with medication management and education -Change dressings daily: *Left upper arm, right knee, and right elbow skin tear- Clean with NS. Hydrogel to the wound bed. Top with Adaptic and gauze. Secure with Conform and paper tape, Opsite to the left upper arm. *Left elbow and left hand skin tears- Pad and protect with gauze. Secure with Conform and paper tape. *Forehead laceration- Clean with NS. 2x2 gauze to the wound bed. Secure with paper tape. -Offload heels every 2 hours -Turn and reposition every 2 hoursOhio State Harding Hospital Work Phone: 1([phone] 468-462510-08-2025 Progress note Author Minna Patricia [facility] HospitalNote Date/TimeOctober 2024 11:56am [place] [address] Hospitalist Progress Note Signed Patient: Fani Chua MR#: [id number] : 1935 Acct:[id number] Age/Sex: 89 / M Adm Date: 5 Loc: Room: 2D6877-6 Type: ADM INOo Attending Dr: Minna Patricia MD Copies to: ~ Date of Service: 03/22/2025 Subjective Subjective Narrative: Patient being admitted after a fall. Patient is a very pleasant, alert and oriented x 3, 89-year-old male. Patient had a mechanical fall at homewhile attempting to pull an outdoor umbrella on his patio. Patient denies having any lightheadedness, dizziness, chest pain. Patient states he stumbled on a step. He hit his head but did not have loss of consciousness and has multiple abrasions along his elbows bilaterally and knees bilaterally. Patient is also on OAC. Patient reports that he does have frequent mechanical falls. Patient states I am a pro at falling . 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 At thistime, patient denies any pain, shortness of breath, nausea, or vomiting. Patient takes medications for history of atrial fibrillation, aortic stenosis status post TAVR, HTN, HLD, and GERD. Patient denies any use of tobacco but reports he drinks 1-2 beers nightly, denies use of illicit drugs including THC. Interval hx 03/22/25: Patient was seen and evaluated at bedside, he is ambulating in the room comfortably. No obvious neurodeficits, seen by PT/OT. Eager to go home today. Exam Physical Exam Vital Signs: Temp Pulse Resp BP Pulse Ox O2 Del Method 97.8 F 70 20 132/69 94 L Room Air 03/22/25 08:47 03/22/25 08:47 03/22/25 08:47 03/22/25 08:47 03/22/25 08:47 03/22/25 08:47 Narrative: Const General: cooperative HEENT Normal oropharyngeal mucosa without any ulcers or exudates Eyes: Conjunctiva normal Pulmonary Auscultation: clear to auscultation , no crackles, no wheezes Cardiovascular Rate: normal rate Rhythm: regular rhythm Heart Sounds: S1 normal, S2 normal and no murmurs GI Inspection: non-distended Palpation: soft, not firm and nontender. No rigidity or rebound. Deferred Neuro General: alert, awake and oriented x3. No obvious new focal deficit Musculoskeletal: normal range of motion Extrem General: no cyanosis, no pedal edema Psych Appearance: appropriate affect. Grossly normal Objective Lab Results 03/22/25 05:06 03/22/25 05:06 Meds Allergies and Active Meds Allergies amoxicillin Allergy (Severe, Verified 03/21/25 20:20) Swelling of Lip/Tongue/Throat adhesive Allergy (Unknown, Verified 03/21/25 20:20) Rash bacitracin (From Neosporin (irl-ldm-wqaym)) Allergy (Unknown, Verified 03/21/25 20:20) itch and rash, rash neomycin (From Neosporin (bwz-dld-vyqdu)) Allergy (Unknown, Verified 03/21/25 20:20) itch and rash, rash Penicillins Allergy (Unknown, Verified 03/21/25 20:20) Anaphylaxis polymyxin B (From Neosporin (yaw-jzn-purlf)) Allergy (Unknown, Verified 03/21/2520:20) Rash and itch, rash Active Meds: Active Medications Generic Name Dose Route Start Last Admin Trade Name Freq PRN Reason Stop Dose Admin Acetaminophen 650 mg 03/22/25 01:00 03/22/25 09:55 Acetaminophen 325 Mg Tablet PO 03/22/26 00:59 650 mg Q6HR PRN Administration Pain Scale 1 - 3 or fever Sodium Chloride 0 ml 03/21/25 20:19 Sodium Chloride 0.9 % 10 Ml Syringe IV-PUSH 03/21/26 20:18 PRN PRN Flush Warfarin Sodium 1 each 03/22/25 01:05 Warfarin - Pharmacy Dosing MISCELLANE 03/22/26 01:04 ONCE PRN ZZ.Pharmacy Consult Protocol A&P - Hospitalist Assessment/Plan (1) Fall from slip, trip, or stumble: Plan: Mechanical fall: CT/x-ray imaging unremarkable for acute findings. Blood work unremarkable. Multiple abrasions and patient is on OAC for A-fib. * Patient will benefit from PT OT prior to discharge. We will consult PT OT and case management forany home health needs. Pain control as needed. (2) Multiple skin tears: Plan: Wounds: forehead laceration with sutures placed in ED. Multiple skin tears, skin avulsions. * Will consult wound care for evaluation and discharge wound care instructions and follow-up. Plan Atrial fibrillation: Patient on medications to control and OAC. INR 2.2. We will resume patient's home meds and monitor potassium and magnesium for goal of 4.0 and 2.0 respectively HTN: Patient on home meds to control. Will resume home meds History of aortic stenosis: Patient on ASA and statin. Will resume home meds GERD: Patient on PPI. Will resume home meds HLD: Mixed. Patient on statin. We will resume home meds 03/22/2025: Patient was evaluated evaluated bedside, he is alert awake and oriented x 3, slightly hard of hearing, he is ambulating in the room comfortably with steady gait reports that he does have history of spinal stenosis, he did have few fallsat home. 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 No signs of bleeding today, INR seems therapeutic. Patient is afebrile, no leukocytosis, no obvious new neurological deficits. He is stable for discharge at this time discussed with patient bedside, all question answered, patient is in agreement and eager and comfortable with discharge plan at this time. Documented By: Minna Patricia MD 03/22/25 11 54 Signed By: <Electronically signed by Minna Patricia MD> 03/22/25 9354 [facility] Work Phone: [phone]) 870-761710-08-[address] [address] Hospitalist Progress Note Signed Patient: Fani Chua MR#: [id number] : 1935 Acct:[id number] Age/Sex: 89 / M Adm Date: 5 Loc: 4N Room: [address] [place] [address] Type: ADM INOo Attending Dr: Minna Patricia MD Copies to: ~ Date of Service: 03/22/2025 Subjective Subjective Narrative: Patient being admitted after a fall. Patient is a very pleasant, alert and oriented x 3, 89-year-old male. Patient had a mechanical fall at homewhile attempting to pull an outdoor umbrella on his patio. Patient denies having any lightheadedness, dizziness, chest pain. Patient states he stumbled on a step. He hit his head but did not have loss of consciousness and has multiple abrasions along his elbows bilaterally and knees bilaterally. Patient is also on OAC. Patient reports that he does have frequent mechanical falls. Patient states I am a pro at falling . 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 At thistime, patient denies any pain, shortness of breath, nausea, or vomiting. Patient takes medications for history of atrial fibrillation, aortic stenosis status post TAVR, HTN, HLD, and GERD. Patient denies any use of tobacco but reports he drinks 1-2 beers nightly, denies use of illicit drugs including THC. Interval hx 03/22/25: Patient was seen and evaluated at bedside, he is ambulating in the room comfortably. No obvious neurodeficits, seen by PT/OT. Eager to go home today. Exam Physical Exam Vital Signs: Temp Pulse Resp BP Pulse Ox O2 Del Method 97.8 F 70 20 132/69 94 L Room Air 03/22/25 08:47 03/22/25 08:47 03/22/25 08:47 03/22/25 08:47 03/22/25 08:47 03/22/25 08:47 Narrative: Const General: cooperative HEENT Normal oropharyngeal mucosa without any ulcers or exudates Eyes: Conjunctiva normal Pulmonary Auscultation: clear to auscultation , no crackles, no wheezes Cardiovascular Rate: normal rate Rhythm: regular rhythm Heart Sounds: S1 normal, S2 normal and no murmurs GI Inspection: non-distended Palpation: soft, not firm and nontender. No rigidity or rebound. Deferred Neuro General: alert, awake and oriented x3. No obvious new focal deficit Musculoskeletal: normal range of motion Extrem General: no cyanosis, no pedal edema Psych Appearance: appropriate affect. Grossly normal Objective Lab Results 03/22/25 05:06 03/22/25 05:06 Meds Allergies and Active Meds Allergies amoxicillin Allergy (Severe, Verified 03/21/25 20:20) Swelling of Lip/Tongue/Throat adhesive Allergy (Unknown, Verified 03/21/25 20:20) Rash bacitracin (From Neosporin (uwj-sdo-tlfit)) Allergy (Unknown, Verified 03/21/25 20:20) itch and rash, rash neomycin (From Neosporin (ozu-ozh-jhroa)) Allergy (Unknown, Verified 03/21/25 20:20) itch and rash, rash Penicillins Allergy (Unknown, Verified 03/21/25 20:20) Anaphylaxis polymyxin B (From Neosporin (ziy-xjg-txvkd)) Allergy (Unknown, Verified 03/21/2520:20) Rash and itch, rash Active Meds: Active Medications Generic Name Dose Route Start Last Admin Trade Name Kamq PRN Reason Stop Dose Admin Acetaminophen 650 mg 03/22/25 01:00 03/22/25 09:55 Acetaminophen 325 Mg Tablet PO 03/22/26 00:59 650 mg Q6HR PRN Administration Pain Scale 1 - 3 or fever Sodium Chloride 0 ml 03/21/25 20:19 Sodium Chloride 0.9 % 10 Ml Syringe IV-PUSH 03/21/26 20:18 PRN PRN Flush Warfarin Sodium 1 each 03/22/25 01:05 Warfarin - Pharmacy Dosing MISCELLANE 03/22/26 01:04 ONCE PRN ZZ.Pharmacy Consult Protocol A&P - Hospitalist Assessment/Plan (1) Fall from slip, trip, or stumble: Plan: Mechanical fall: CT/x-ray imaging unremarkable for acute findings. Blood work unremarkable. Multiple abrasions and patient is on OAC for A-fib. * Patient will benefit from PT OT prior to discharge. We will consult PT OT and case management forany home health needs. Pain control as needed. (2) Multiple skin tears: Plan: Wounds: forehead laceration with sutures placed in ED. Multiple skin tears, skin avulsions. * Will consult wound care for evaluation and discharge wound care instructions and follow-up. Plan Atrial fibrillation: Patient on medications to control and OAC. INR 2.2. We will resume patient's home meds and monitor potassium and magnesium for goal of 4.0 and 2.0 respectively HTN: Patient on home meds to control. Will resume home meds History of aortic stenosis: Patient on ASA and statin. Will resume home meds GERD: Patient on PPI. Will resume home meds HLD: Mixed. Patient on statin. We will resume home meds 03/22/2025: Patient was evaluated evaluated bedside, he is alert awake and oriented x 3, slightly hard of hearing, he is ambulating in the room comfortably with steady gait reports that he does have history of spinal stenosis, he did have few fallsat home. 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 No signs of bleeding today, INR seems therapeutic. Patient is afebrile, no leukocytosis, no obvious new neurological deficits. He is stable for discharge at this time discussed with patient bedside, all question answered, patient is in agreement and eager and comfortable with discharge plan at this time. Documented By: Minna Patricia MD 03/22/25 11 54 Signed By: 03/22/25 1156 [facility]10-08-2025 History and physical note Author Grayson Parks [facility] HospitalNote Date/TimeOctober 2024 5:11amTim[place] [id number] Hospitalist H&P Signed with Anna Patient: Fani Chua MR#: [id number] : 1935 Acct:[id number] Age/Sex: 89 / M Adm Date: 5 Loc: 4N Room: 5D4114-4 Type: ADM INOo Attending Dr: Isai May DO Copies to: DO Grayson Harmon APRN Robert L Hill, MD~ ADDENDUM1 I personally saw and examined patient at the bedside. Case was discussed and coordinated in conjunction with nurse practitioner. I agree with the managementas noted therein Addendum Documented By: Isai May DO 03/22/25 0511 Addendum Signed By: <Electronically signed by Isai May, > 03/22/25 0511 HPI DATE OF EXAMINATION: 03/22/25 CHIEF COMPLAINT: Fall HISTORY OF PRESENT ILLNESS: Patient being admitted after a fall. Patient is a very pleasant, alert and oriented x 3, 89-year-old male. Patient had a mechanical fall at homewhile attempting to pull an outdoor umbrella on his patio. Patient denies having any lightheadedness, dizziness, chest pain. Patient states he stumbled on a step. He hit his head but did not have loss of consciousness and has multiple abrasions along his elbows bilaterally and knees bilaterally. Patient is also on OAC. Patient reports that he does have frequent mechanical falls. Patient states I am a pro at falling . 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 At thistime, patient denies any pain, shortness of breath, nausea, or vomiting. Patient takes medications for history of atrial fibrillation, aortic stenosis status post TAVR, HTN, HLD, and GERD. Patient denies any use of tobacco but reports he drinks 1-2 beers nightly, denies use of illicit drugs including THC. Review of Systems Review of Systems All other systems reviewed & are negative unless noted below or in HPI Cardiovascular Cardiovascular: Reports system reviewed and no additional complaints, except as documented Respiratory Respiratory: Reports system reviewed and no additional complaints, except as documented Gastrointestinal Gastrointestinal: Reports system reviewed and no additional complaints, except as documented Genitourinary Genitourinary: Reports system reviewed and no additional complaints, except as documented Integumentary/Breasts Skin/Breast: Reports wounds Neurologic Neurologic: Reports frequent falls [facility] Medical History (Updated 03/21/25 @ 23:48 by Caren Crooks Jr, MD) Right shoulder pain Patella fracture right.12/20/23 Hyperlipidemia Emphysema lung Arthritis Macular degeneration Spinal stenosis Ulcer of right lower leg history of History of bladder cancer History of prostate cancer Warfarin anticoagulation Gout Prostate cancer Bladder cancer Atrial fibrillation Surgical History History of joint replacement bilateral [...] Alcohol Substance Abuse Comment: 1-2 beers a night Meds Medications and Allergies Allergies amoxicillin Allergy (Severe, Verified 03/21/25 20:20) Swelling of Lip/Tongue/Throat adhesive Allergy (Unknown, Verified 03/21/25 20:20) Rash bacitracin (From Neosporin (ppf-kdd-frply)) Allergy (Unknown, Verified 03/21/25 20:20) itch and rash, rash neomycin (From Neosporin (viw-vat-hhacm)) Allergy (Unknown, Verified 03/21/25 20:20) itch and rash, rash Penicillins Allergy (Unknown, Verified 03/21/25 20:20) Anaphylaxis polymyxin B (From Neosporin (nrz-vhv-qljig)) Allergy (Unknown, Verified 03/21/2520:20) Rash and itch, rash Home Medications pantoprazole 40 mg tablet,delayed release 40 mg PO QHS 01/19/19 [History Confirmed 06/15/24] aspirin 81 mg tablet,delayed release (Adult Aspirin Regimen) 81 mg PO DAILY 12/20/23 [History Confirmed 06/15/24] atorvastatin 80 mg tablet 40 mg PO DAILY 12/20/23 [History Confirmed 06/15/24] acetaminophen 500 mg tablet 1,000 mg (2 x 500 mg) PO Q6H PRN Fever Or Pain #0 tabs 12/23/23 [Rx Confirmed 06/15/24] warfarin 5 mg tablet 7.5 mg (1.5 x 5 mg) PO DAILY 30 days #45 tabs 12/23/23 [Rx Confirmed 06/15/24] kyxwqwyg-bkdqiota-uneuu acid 500 mcg-lutein 5 mg-zeaxanth 1 mg tablet (Macular Vitamin) 1 tab PO DAILY 02/26/24 [History Confirmed 06/15/24] ciprofloxacin HCl 500 mg tablet (Cipro) 500 mg PO BID #14 tabs 06/15/24 [Rx] tramadol 50 mg tablet 50 mg PO DAILY PRN pain (scale score 7-10) 06/15/24 [History Confirmed 06/15/24] Exam Physical Exam Vital Signs: Temp Pulse Resp BP Pulse Ox O2 Del Method 98.0 F 86 18 147/80 H 95 Room Air 03/21/25 20:09 03/21/25 22:15 03/21/25 22:15 03/21/25 22:15 03/21/25 22:15 03/21/25 22:15 Const General: cooperative Orientation: alert and oriented x3 HEENT Head: laceration Other: Forehead laceration with sutures placed in ED. Bleeding controlled. Resp Effort & Inspection: normal respiratory effort Auscultation: clear to auscultation bilaterally Cardio Rhythm: abnormal rhythm Heart Sounds: murmur GI Auscultation: normal bowel sounds Skin Other: Multiple skin avulsions and abrasions of elbows bilaterally, forearms, knees bilaterally. Bleeding controlled and bandages placed in ED. Neuro General: patient alert and patient oriented x3 Cognition: normal cognition Speech: speech normal Results - Hospitalist H&P Lab Results Labs: Laboratory Last Values Corrected WBC 5.1 X10E3/uL (4.1-10.5) 03/21/25 21:45 Uncorrected WBC Count 5.1 x10E3/uL (4.1-10.5) 03/21/25 21:45 RBC 3.80 x10E6/uL (3.90-5.60) L 03/21/25 21:45 Hgb 10.8 g/dL (13.0-17.0) L 03/21/25 21:45 Hct 32.8 % (38.8-50.0) L 03/21/25 21:45 MCV 86.3 fl (83.5-101) 03/21/25 21:45 MCH 28.4 pg (27.5-35.2) 03/21/25 21:45 MCHC 32.9 g/dL (32.5-35.6) 03/21/25 21:45 RDW 17.8 % (12.0-14.8) H 03/21/25 21:45 Plt Count 131 x10E3/uL (150-450) L 03/21/25 21:45 MPV 8.4 fl (6.6-10.1) 03/21/25 21:45 Neut % (Auto) 65.9 % (.) 03/21/25 21:45 Lymph % (Auto) 15.0 % (.) 03/21/25 21:45 Kemper % (Auto) 17.8 % (.) 03/21/25 21:45 Eos % (Auto) 0.5 % (.) 03/21/25 21:45 Baso % (Auto) 0.8 % (.) 03/21/25 21:45 Nucleat RBC Rel Count 0.1 /100 WBC (0-0.5) 03/21/25 21:45 Neut # (Auto) 3.4 x10E3/uL (1.8-7.7) 03/21/25 21:45 Lymph # (Auto) 0.8 x10E3/uL (1.00-4.8) L 03/21/25 21:45 Kemper # (Auto) 0.9 x10E3/uL (0.0-0.8) H 03/21/25 21:45 Eos # (Auto) 0.0 x10E3/uL (0.0-0.45) 03/21/25 21:45 Baso # (Auto) 0.0 x10E3/uL (0.0-0.2) 03/21/25 21:45 Monocyte Dist Width 18.70 % (0.00-20.00) 03/21/25 21:45 PT 24.2 Seconds (9.0-12.9) H 03/21/25 21:45 INR 2.2 03/21/25 21:45 PHA Creatinine Clear 53.12 03/21/25 21:45 Sodium 137 mmol/L (136-145) 03/21/25 21:45 Potassium 4.1 mmol/L (3.5-5.1) 03/21/25 21:45 Chloride 104 mmol/L (98-107) 03/21/25 21:45 Carbon Dioxide 25.0 mmol/L (21.0-31.0) 03/21/25 21:45 Anion Gap 12.1 mEq/L (6.0-15.0) 03/21/25 21:45 BUN 21 mg/dL (7-25) 03/21/25 21:45 Creatinine 0.93 mg/dL (0.70-1.30) 03/21/25 21:45 Est GFR (CKD-EPI) > 60.0 mL/Min 03/21/25 21:45 Glucose 127 mg/dL (70-100) H 03/21/25 21:45 Calcium 9.3 mg/dL (8.6-10.3) 03/21/25 21:45 Total Bilirubin 0.6 mg/dl (0.3-1.0) 03/21/25 21:45 AST 42 U/L (13-39) H 03/21/25 21:45 ALT 24 U/L (7-52) 03/21/25 21:45 Alkaline Phosphatase 111 U/L (34-104) H 03/21/25 21:45 Total Protein 7.2 gm/dL (6.4-8.9) 03/21/25 21:45 Albumin 4.3 gm/dL (3.5-5.7) 03/21/25 21:45 Globulin 2.9 gm/dL 03/21/25 21:45 Albumin/Globulin Ratio 1.5 03/21/25 21:45 Assessment & Plan Assessment/Plan (1) Fall from slip, trip, or stumble: Plan: Mechanical fall: CT/x-ray imaging unremarkable for acute findings. Blood work unremarkable. Multiple abrasions and patient is on OAC for A-fib. * Patient will benefit from PT OT prior to discharge. We will consult PT OT and case management forany home health needs. Pain control as needed. (2) Multiple skin tears: Plan: Wounds: forehead laceration with sutures placed in ED. Multiple skin tears, skin avulsions. * Will consult wound care for evaluation and discharge wound care instructions and follow-up. Plan Atrial fibrillation: Patient on medications to control and OAC. INR 2.2. We will resume patient's home meds and monitor potassium and magnesium for goal of 4.0 and 2.0 respectively HTN: Patient on home meds to control. Will resume home meds History of aortic stenosis: Patient on ASA and statin. Will resume home meds GERD: Patient on PPI. Will resume home meds HLD: Mixed. Patient on statin. We will resume home meds IP vs OBS Justification Based on differential dx, clinical care plan, and risk of adverse events, if untreated, in my clinical judgement this patient requires an acute care setting as: OBSERVATION because of an expectation of an under 2 midnight stay. Estimated length of stay (# of days): 2 Documented By: Grayson Prajapati APRN 02/06 0031 Signed By: <Electronically signed by BENJI Prajapati> 03/22/25 0109 [facility] Work Phone: [phone]) 836-934810-08-2025 [place] [address] Hospitalist H&P Signed with Addenda Patient: Fani Chua MR#: [id number] : 1935 Acct:[id number] Age/Sex: 89 / M Adm Date: 5 Loc: Room: [address] [place] [address] Type: ADM INOo Attending Dr: Isai May DO Copies to: DO Grayson Harmon APRN Robert L Hill, MD~ ADDENDUM1 I personally saw and examined patient at the bedside. Case was discussed and coordinated in conjunction with nurse practitioner. I agree with the managementas noted therein Addendum Documented By: Isai May DO 03/22/25510 Addendum Signed By: 03/22/25510 HPI DATE OF EXAMINATION: 03/22/25 CHIEF COMPLAINT: Fall HISTORY OF PRESENT ILLNESS: Patient being admitted after a fall. Patient is a very pleasant, alert and oriented x 3, 89-year-old male. Patient had a mechanical fall at homewhile attempting to pull an outdoor umbrella on his patio. Patient denies having any lightheadedness, dizziness, chest pain. Patient states he stumbled on a step. He hit his head but did not have loss of consciousness and has multiple abrasions along his elbows bilaterally and knees bilaterally. Patient is also on OAC. Patient reports that he does have frequent mechanical falls. Patient states I am a pro at falling . 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 At thistime, patient denies any pain, shortness of breath, nausea, or vomiting. Patient takes medications for history of atrial fibrillation, aortic stenosis status post TAVR, HTN, HLD, and GERD. Patient denies any use of tobacco but reports he drinks 1-2 beers nightly, denies use of illicit drugs including THC. Review of Systems Review of Systems All other systems reviewed & are negative unless noted below or in HPI Cardiovascular Cardiovascular: Reports system reviewed and no additional complaints, except as documented Respiratory Respiratory: Reports system reviewed and no additional complaints, except as documented Gastrointestinal Gastrointestinal: Reports system reviewed and no additional complaints, except as documented Genitourinary Genitourinary: Reports system reviewed and no additional complaints, except as documented Integumentary/Breasts Skin/Breast: Reports wounds Neurologic Neurologic: Reports frequent falls [facility] Medical History (Updated 03/21/25 @ 23:48 by Caren Crooks Jr, MD) Right shoulder pain Patella fracture right.12/20/23 Hyperlipidemia Emphysema lung Arthritis Macular degeneration Spinal stenosis Ulcer of right lower leg history of History of bladder cancer History of prostate cancer Warfarin anticoagulation Gout Prostate cancer Bladder cancer Atrial fibrillation Surgical History History of joint replacement bilateral [...] Alcohol Substance Abuse Comment: 1-2 beers a night Meds Medications and Allergies Allergies amoxicillin Allergy (Severe, Verified 03/21/25 20:20) Swelling of Lip/Tongue/Throat adhesive Allergy (Unknown, Verified 03/21/25 20:20) Rash bacitracin (From Neosporin ([id number]-aew-pxafk)) Allergy (Unknown, Verified 03/21/25 20:20) itch and rash, rash neomycin (From Neosporin (xej-xjq-ltesc)) Allergy (Unknown, Verified 03/21/25 20:20) itch and rash, rash Penicillins Allergy (Unknown, Verified 03/21/25 20:20) Anaphylaxis polymyxin B (From Neosporin (lfa-cuo-nnnmv)) Allergy (Unknown, Verified 03/21/2520:20) Rash and itch, rash Home Medications pantoprazole 40 mg tablet,delayed release 40 mg PO QHS 01/19/19 [History Confirmed 06/15/24] aspirin 81 mg tablet,delayed release (Adult Aspirin Regimen) 81 mg PO DAILY 12/20/23 [History Confirmed 06/15/24] atorvastatin 80 mg tablet 40 mg PO DAILY 12/20/23 [History Confirmed 06/15/24] acetaminophen 500 mg tablet 1,000 mg (2 x 500 mg) PO Q6H PRN Fever Or Pain #0 tabs 12/23/23 [Rx Confirmed 06/15/24] warfarin 5 mg tablet 7.5 mg (1.5 x 5 mg) PO DAILY 30 days #45 tabs 12/23/23 [Rx Confirmed 06/15/24] lxsuyllr-ivzjadct-hqmin acid 500 mcg-lutein 5 mg-zeaxanth 1 mg tablet (Macular Vitamin) 1 tab PO DAILY 02/26/24 [History Confirmed 06/15/24] ciprofloxacin HCl 500 mg tablet (Cipro) 500 mg PO BID #14 tabs 06/15/24 [Rx] tramadol 50 mg tablet 50 mg PO DAILY PRN pain (scale score 7-10) 06/15/24 [History Confirmed 06/15/24] Exam Physical Exam Vital Signs: Temp Pulse Resp BP Pulse Ox O2 Del Method 98.0 F 86 18 147/80 H 95 Room Air 03/21/25 20:09 03/21/25 22:15 03/21/25 22:15 03/21/25 22:15 03/21/25 22:15 03/21/25 22:15 Const General: cooperative Orientation: alert and oriented x3 HEENT Head: laceration Other: Forehead laceration with sutures placed in ED. Bleeding controlled. Resp Effort & Inspection: normal respiratory effort Auscultation: clear to auscultation bilaterally Cardio Rhythm: abnormal rhythm Heart Sounds: murmur GI Auscultation: normal bowel sounds Skin Other: Multiple skin avulsions and abrasions of elbows bilaterally, forearms, knees bilaterally. Bleeding controlled and bandages placed in ED. Neuro General: patient alert and patient oriented x3 Cognition: normal cognition Speech: speech normal Results - Hospitalist H&P Lab Results Labs: Laboratory Last Values Corrected WBC 5.1 X10E3/uL (4.1-10.5) 03/21/25 21:45 Uncorrected WBC Count 5.1 x10E3/uL (4.1-10.5) 03/21/25 21:45 RBC 3.80 x10E6/uL (3.90-5.60) L 03/21/25 21:45 Hgb 10.8 g/dL (13.0-17.0) L 03/21/25 21:45 Hct 32.8 % (38.8-50.0) L 03/21/25 21:45 MCV 86.3 fl (83.5-101) 03/21/25 21:45 MCH 28.4 pg (27.5-35.2) 03/21/25 21:45 MCHC 32.9 g/dL (32.5-35.6) 03/21/25 21:45 RDW 17.8 % (12.0-14.8) H 03/21/25 21:45 Plt Count 131 x10E3/uL (150-450) L 03/21/25 21:45 MPV 8.4 fl (6.6-10.1) 03/21/25 21:45 Neut % (Auto) 65.9 % (.) 03/21/25 21:45 Lymph % (Auto) 15.0 % (.) 03/21/25 21:45 Kemper % (Auto) 17.8 % (.) 03/21/25 21:45 Eos % (Auto) 0.5 % (.) 03/21/25 21:45 Baso % (Auto) 0.8 % (.) 03/21/25 21:45 Nucleat RBC Rel Count 0.1 /100 WBC (0-0.5) 03/21/25 21:45 Neut # (Auto) 3.4 x10E3/uL (1.8-7.7) 03/21/25 21:45 Lymph # (Auto) 0.8 x10E3/uL (1.00-4.8) L 03/21/25 21:45 Kemper # (Auto) 0.9 x10E3/uL (0.0-0.8) H 03/21/25 21:45 Eos # (Auto) 0.0 x10E3/uL (0.0-0.45) 03/21/25 21:45 Baso # (Auto) 0.0 x10E3/uL (0.0-0.2) 03/21/25 21:45 Monocyte Dist Width 18.70 % (0.00-20.00) 03/21/25 21:45 PT 24.2 Seconds (9.0-12.9) H 03/21/25 21:45 INR 2.2 03/21/25 21:45 PHA Creatinine Clear 53.12 03/21/25 21:45 Sodium 137 mmol/L (136-145) 03/21/25 21:45 Potassium 4.1 mmol/L (3.5-5.1) 03/21/25 21:45 Chloride 104 mmol/L (98-107) 03/21/25 21:45 Carbon Dioxide 25.0 mmol/L (21.0-31.0) 03/21/25 21:45 Anion Gap 12.1 mEq/L (6.0-15.0) 03/21/25 21:45 BUN 21 mg/dL (7-25) 03/21/25 21:45 Creatinine 0.93 mg/dL (0.70-1.30) 03/21/25 21:45 Est GFR (CKD-EPI) > 60.0 mL/Min 10/07/25 21:45 Glucose 127 mg/dL (70-100) H 03/21/25 21:45 Calcium 9.3 mg/dL (8.6-10.3) 03/21/25 21:45 Total Bilirubin 0.6 mg/dl (0.3-1.0) 03/21/25 21:45 AST 42 U/L (13-39) H 03/21/25 21:45 ALT 24 U/L (7-52) 03/21/25 21:45 Alkaline Phosphatase 111 U/L (34-104) H 03/21/25 21:45 Total Protein 7.2 gm/dL (6.4-8.9) 03/21/25 21:45 Albumin 4.3 gm/dL (3.5-5.7) 03/21/25 21:45 Globulin 2.9 gm/dL 03/21/25 21:45 Albumin/Globulin Ratio 1.5 03/21/25 21:45 Assessment & Plan Assessment/Plan (1) Fall from slip, trip, or stumble: Plan: Mechanical fall: CT/x-ray imaging unremarkable for acute findings. Blood work unremarkable. Multiple abrasions and patient is on OAC for A-fib. * Patient will benefit from PT OT prior to discharge. We will consult PT OT and case management forany home health needs. Pain control as needed. (2) Multiple skin tears: Plan: Wounds: forehead laceration with sutures placed in ED. Multiple skin tears, skin avulsions. * Will consult wound care for evaluation and discharge wound care instructions and follow-up. Plan Atrial fibrillation: Patient on medications to control and OAC. INR 2.2. We will resume patient's home meds and monitor potassium and magnesium for goal of 4.0 and 2.0 respectively HTN: Patient on home meds to control. Will resume home meds History of aortic stenosis: Patient on ASA and statin. Will resume home meds GERD: Patient on PPI. Will resume home meds HLD: Mixed. Patient on statin. We will resume home meds IP vs OBS Justification Based on differential dx, clinical care plan, and risk of adverse events, if untreated, in my clinical judgement this patient requires an acute care setting as: OBSERVATION because of an expectation of an under 2 midnight stay. Estimated length of stay (# of days): 2 Documented By: Grayson Prajapati APRN 02/06 0031 Signed By: 03/22/25 0109 [facility]10-08-2025 History and physical note Author Grayson Parks he [facility] HospitalNote Date/TimeOctober 2024 1:09[place] [address] Hospitalist H&P Signed Patient: Fani Chua MR#: [id number] : 1935 Acct:[id number] Age/Sex: 89 / M Adm Date: 5 Loc: ER Room: Type: [facility] ER Attending Dr: Copies to: BENJI Nunes MD Thomas D Kramer Jr, MD~ HPI DATE OF EXAMINATION: 03/22/25 CHIEF COMPLAINT: Fall HISTORY OF PRESENT ILLNESS: Patient being admitted after a fall. Patient is a very pleasant, alert and oriented x 3, 89-year-old male. Patient had a mechanical fall at homewhile attempting to pull an outdoor umbrella on his patio. Patient denies having any lightheadedness, dizziness, chest pain. Patient states he stumbled on a step. He hit his head but did not have loss of consciousness and has multiple abrasions along his elbows bilaterally and knees bilaterally. Patient is also on OAC. Patient reports that he does have frequent mechanical falls. Patient states I am a pro at falling . 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 At thistime, patient denies any pain, shortness of breath, nausea, or vomiting. Patient takes medications for history of atrial fibrillation, aortic stenosis status post TAVR, HTN, HLD, and GERD. Patient denies any use of tobacco but reports he drinks 1-2 beers nightly, denies use of illicit drugs including THC. Review of Systems Review of Systems All other systems reviewed & are negative unless noted below or in HPI Cardiovascular Cardiovascular: Reports system reviewed and no additional complaints, except as documented Respiratory Respiratory: Reports system reviewed and no additional complaints, except as documented Gastrointestinal Gastrointestinal: Reports system reviewed and no additional complaints, except as documented Genitourinary Genitourinary: Reports system reviewed and no additional complaints, except as documented Integumentary/Breasts Skin/Breast: Reports wounds Neurologic Neurologic: Reports frequent falls [facility] Medical History (Updated 03/21/25 @ 23:48 by Caren Crooks Jr, MD) Right shoulder pain Patella fracture right.12/20/23 Hyperlipidemia Emphysema lung Arthritis Macular degeneration Spinal stenosis Ulcer of right lower leg history of History of bladder cancer History of prostate cancer Warfarin anticoagulation Gout Prostate cancer Bladder cancer Atrial fibrillation Surgical History History of joint replacement bilateral [...] Alcohol Substance Abuse Comment: 1-2 beers a night Meds Medications and Allergies Allergies amoxicillin Allergy (Severe, Verified 03/21/25 20:20) Swelling of Lip/Tongue/Throat adhesive Allergy (Unknown, Verified 03/21/25 20:20) Rash bacitracin (From Neosporin (eaf-xsc-xsqwa)) Allergy (Unknown, Verified 03/21/25 20:20) itch and rash, rash neomycin (From Neosporin (rlw-hpr-rklir)) Allergy (Unknown, Verified 03/21/25 20:20) itch and rash, rash Penicillins Allergy (Unknown, Verified 03/21/25 20:20) Anaphylaxis polymyxin B (From Neosporin (dud-jvf-ueyzo)) Allergy (Unknown, Verified 03/21/2520:20) Rash and itch, rash Home Medications pantoprazole 40 mg tablet,delayed release 40 mg PO QHS 01/19/19 [History Confirmed 06/15/24] aspirin 81 mg tablet,delayed release (Adult Aspirin Regimen) 81 mg PO DAILY 12/20/23 [History Confirmed 06/15/24] atorvastatin 80 mg tablet 40 mg PO DAILY 12/20/23 [History Confirmed 06/15/24] acetaminophen 500 mg tablet 1,000 mg (2 x 500 mg) PO Q6H PRN Fever Or Pain #0 tabs 12/23/23 [Rx Confirmed 06/15/24] warfarin 5 mg tablet 7.5 mg (1.5 x 5 mg) PO DAILY 30 days #45 tabs 12/23/23 [Rx Confirmed 06/15/24] smefwkxr-omiafklt-jcyrd acid 500 mcg-lutein 5 mg-zeaxanth 1 mg tablet (Macular Vitamin) 1 tab PO DAILY 02/26/24 [History Confirmed 06/15/24] ciprofloxacin HCl 500 mg tablet (Cipro) 500 mg PO BID #14 tabs 06/15/24 [Rx] tramadol 50 mg tablet 50 mg PO DAILY PRN pain (scale score 7-10) 06/15/24 [History Confirmed 06/15/24] Exam Physical Exam Vital Signs: Temp Pulse Resp BP Pulse Ox O2 Del Method 98.0 F 86 18 147/80 H 95 Room Air 03/21/25 20:09 03/21/25 22:15 03/21/25 22:15 03/21/25 22:15 03/21/25 22:15 03/21/25 22:15 Const General: cooperative Orientation: alert and oriented x3 HEENT Head: laceration Other: Forehead laceration with sutures placed in ED. Bleeding controlled. Resp Effort & Inspection: normal respiratory effort Auscultation: clear to auscultation bilaterally Cardio Rhythm: abnormal rhythm Heart Sounds: murmur GI Auscultation: normal bowel sounds Skin Other: Multiple skin avulsions and abrasions of elbows bilaterally, forearms, knees bilaterally. Bleeding controlled and bandages placed in ED. Neuro General: patient alert and patient oriented x3 Cognition: normal cognition Speech: speech normal Results - Hospitalist H&P Lab Results Labs: Laboratory Last Values Corrected WBC 5.1 X10E3/uL (4.1-10.5) 03/21/25 21:45 Uncorrected WBC Count 5.1 x10E3/uL (4.1-10.5) 03/21/25 21:45 RBC 3.80 x10E6/uL (3.90-5.60) L 03/21/25 21:45 Hgb 10.8 g/dL (13.0-17.0) L 03/21/25 21:45 Hct 32.8 % (38.8-50.0) L 03/21/25 21:45 MCV 86.3 fl (83.5-101) 03/21/25 21:45 MCH 28.4 pg (27.5-35.2) 03/21/25 21:45 MCHC 32.9 g/dL (32.5-35.6) 03/21/25 21:45 RDW 17.8 % (12.0-14.8) H 03/21/25 21:45 Plt Count 131 x10E3/uL (150-450) L 03/21/25 21:45 MPV 8.4 fl (6.6-10.1) 03/21/25 21:45 Neut % (Auto) 65.9 % (.) 03/21/25 21:45 Lymph % (Auto) 15.0 % (.) 03/21/25 21:45 Kemper % (Auto) 17.8 % (.) 03/21/25 21:45 Eos % (Auto) 0.5 % (.) 03/21/25 21:45 Baso % (Auto) 0.8 % (.) 03/21/25 21:45 Nucleat RBC Rel Count 0.1 /100 WBC (0-0.5) 03/21/25 21:45 Neut # (Auto) 3.4 x10E3/uL (1.8-7.7) 03/21/25 21:45 Lymph # (Auto) 0.8 x10E3/uL (1.00-4.8) L 03/21/25 21:45 Kemper # (Auto) 0.9 x10E3/uL (0.0-0.8) H 03/21/25 21:45 Eos # (Auto) 0.0 x10E3/uL (0.0-0.45) 03/21/25 21:45 Baso # (Auto) 0.0 x10E3/uL (0.0-0.2) 03/21/25 21:45 Monocyte Dist Width 18.70 % (0.00-20.00) 03/21/25 21:45 PT 24.2 Seconds (9.0-12.9) H 03/21/25 21:45 INR 2.2 03/21/25 21:45 PHA Creatinine Clear 53.12 03/21/25 21:45 Sodium 137 mmol/L (136-145) 03/21/25 21:45 Potassium 4.1 mmol/L (3.5-5.1) 03/21/25 21:45 Chloride 104 mmol/L (98-107) 03/21/25 21:45 Carbon Dioxide 25.0 mmol/L (21.0-31.0) 03/21/25 21:45 Anion Gap 12.1 mEq/L (6.0-15.0) 03/21/25 21:45 BUN 21 mg/dL (7-25) 03/21/25 21:45 Creatinine 0.93 mg/dL (0.70-1.30) 03/21/25 21:45 Est GFR (CKD-EPI) > 60.0 mL/Min 03/21/25 21:45 Glucose 127 mg/dL (70-100) H 03/21/25 21:45 Calcium 9.3 mg/dL (8.6-10.3) 03/21/25 21:45 Total Bilirubin 0.6 mg/dl (0.3-1.0) 03/21/25 21:45 AST 42 U/L (13-39) H 03/21/25 21:45 ALT 24 U/L (7-52) 03/21/25 21:45 Alkaline Phosphatase 111 U/L (34-104) H 03/21/25 21:45 Total Protein 7.2 gm/dL (6.4-8.9) 03/21/25 21:45 Albumin 4.3 gm/dL (3.5-5.7) 03/21/25 21:45 Globulin 2.9 gm/dL 03/21/25 21:45 Albumin/Globulin Ratio 1.5 03/21/25 21:45 Assessment & Plan Assessment/Plan (1) Fall from slip, trip, or stumble: Plan: Mechanical fall: CT/x-ray imaging unremarkable for acute findings. Blood work unremarkable. Multiple abrasions and patient is on OAC for A-fib. * Patient will benefit from PT OT prior to discharge. We will consult PT OT and case management forany home health needs. Pain control as needed. (2) Multiple skin tears: Plan: Wounds: forehead laceration with sutures placed in ED. Multiple skin tears, skin avulsions. * Will consult wound care for evaluation and discharge wound care instructions and follow-up. Plan Atrial fibrillation: Patient on medications to control and OAC. INR 2.2. We will resume patient's home meds and monitor potassium and magnesium for goal of 4.0 and 2.0 respectively HTN: Patient on home meds to control. Will resume home meds History of aortic stenosis: Patient on ASA and statin. Will resume home meds GERD: Patient on PPI. Will resume home meds HLD: Mixed. Patient on statin. We will resume home meds IP vs OBS Justification Based on differential dx, clinical care plan, and risk of adverse events, if untreated, in my clinical judgement this patient requires an acute care setting as: OBSERVATION because of an expectation of an under 2 midnight stay. Estimated length of stay (# of days): 2 Documented By: Grayson Prajapati APRN 02/06 0031 Signed By: <Electronically signed by BENJI Prajapati> 03/22/25 0109 [facility] Work Phone: 1(223) 334-166710-08-2025 Evaluation note* Diagnosis Onset Date Resolution Status Admit Date Fall from slip, trip, or stumble acuteOctober 2024 1:00am[facility]acute[facility] 1:00am Head injuryacuteOctober 2024 1:00amMultiple skin tearsacuteOctober 2024 1:00amTraumatic hematoma of foreheadacuteOctober 2024 1:00amWarfarin [facility]acute[facility] 2024 1:00am [facility] Work Phone: 1(795) 551-870210-08-2025 History and physical [place] [id number] Hospitalist H&P Signed Patient: Fani Chua MR#: [id number] : 1935 Acct:[id number] Age/Sex: 89 / M Adm Date: 5 Loc: ER Room: Type: [facility] ER Attending Dr: Copies to: BENJI Nunes MD Thomas D Kramer Jr, MD~ HPI DATE OF EXAMINATION: 03/22/25 CHIEF COMPLAINT: Fall HISTORY OF PRESENT ILLNESS: Patient being admitted after a fall. Patient is a very pleasant, alert and oriented x 3, 89-year-old male. Patient had a mechanical fall at homewhile attempting to pull an outdoor umbrella on his patio. Patient denies having any lightheadedness, dizziness, chest pain. Patient states he stumbled on a step. He hit his head but did not have loss of consciousness and has multiple abrasions along his elbows bilaterally and knees bilaterally. Patient is also on OAC. Patient reports that he does have frequent mechanical falls. Patient states I am a pro at falling . 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 At thistime, patient denies any pain, shortness of breath, nausea, or vomiting. Patient takes medications for history of atrial fibrillation, aortic stenosis status post TAVR, HTN, HLD, and GERD. Patient denies any use of tobacco but reports he drinks 1-2 beers nightly, denies use of illicit drugs including THC. Review of Systems Review of Systems All other systems reviewed & are negative unless noted below or in HPI Cardiovascular Cardiovascular: Reports system reviewed and no additional complaints, except as documented Respiratory Respiratory: Reports system reviewed and no additional complaints, except as documented Gastrointestinal Gastrointestinal: Reports system reviewed and no additional complaints, except as documented Genitourinary Genitourinary: Reports system reviewed and no additional complaints, except as documented Integumentary/Breasts Skin/Breast: Reports wounds Neurologic Neurologic: Reports frequent falls [facility] Medical History (Updated 03/21/25 @ 23:48 by Caren Crooks Jr, MD) Right shoulder pain Patella fracture right.12/20/23 Hyperlipidemia Emphysema lung Arthritis Macular degeneration Spinal stenosis Ulcer of right lower leg history of History of bladder cancer History of prostate cancer Warfarin anticoagulation Gout Prostate cancer Bladder cancer Atrial fibrillation Surgical History History of joint replacement bilateral [...] Legacy FamHx Relation: Brother(s) Sibling Cancer Legacy Famx Problem: Diagnosed with Cancer Other Afib Social History Smoking Status: Former smoker Tobacco Type: cigarettes Substance Use Type: Alcohol Substance Abuse Comment: 1-2 beers a night Meds Medications and Allergies Allergies amoxicillin Allergy (Severe, Verified 03/21/25 20:20) Swelling of Lip/Tongue/Throat adhesive Allergy (Unknown, Verified 03/21/25 20:20) Rash bacitracin (From Neosporin (vob-zbg-iwdcf)) Allergy (Unknown, Verified 03/21/25 20:20) itch and rash, rash neomycin (From Neosporin (mom-vxy-obukw)) Allergy (Unknown, Verified 03/21/25 20:20) itch and rash, rash Penicillins Allergy (Unknown, Verified 03/21/25 20:20) Anaphylaxis polymyxin B (From Neosporin (osg-hks-gfquk)) Allergy (Unknown, Verified 03/21/2520:20) Rash and itch, rash Home Medications pantoprazole 40 mg tablet,delayed release 40 mg PO QHS 01/19/19 [History Confirmed 06/15/24] aspirin 81 mg tablet,delayed release (Adult Aspirin Regimen) 81 mg PO DAILY 12/20/23 [History Confirmed 06/15/24] atorvastatin 80 mg tablet 40 mg PO DAILY 12/20/23 [History Confirmed 06/15/24] acetaminophen 500 mg tablet 1,000 mg (2 x 500 mg) PO Q6H PRN Fever Or Pain #0 tabs 12/23/23 [Rx Confirmed 06/15/24] warfarin 5 mg tablet 7.5 mg (1.5 x 5 mg) PO DAILY 30 days #45 tabs 12/23/23 [Rx Confirmed 06/15/24] motrvqnq-fuynujly-mnsum acid 500 mcg-lutein 5 mg-zeaxanth 1 mg tablet (Macular Vitamin) 1 tab PO DAILY 02/26/24 [History Confirmed 06/15/24] ciprofloxacin HCl 500 mg tablet (Cipro) 500 mg PO BID #14 tabs 06/15/24 [Rx] tramadol 50 mg tablet 50 mg PO DAILY PRN pain (scale score 7-10) 06/15/24 [History Confirmed 06/15/24] Exam Physical Exam Vital Signs: Temp Pulse Resp BP Pulse Ox O2 Del Method 98.0 F 86 18 147/80 H 95 Room Air 03/21/25 20:09 03/21/25 22:15 03/21/25 22:15 03/21/25 22:15 03/21/25 22:15 03/21/25 22:15 Const General: cooperative Orientation: alert and oriented x3 HEENT Head: laceration Other: Forehead laceration with sutures placed in ED. Bleeding controlled. Resp Effort & Inspection: normal respiratory effort Auscultation: clear to auscultation bilaterally Cardio Rhythm: abnormal rhythm Heart Sounds: murmur GI Auscultation: normal bowel sounds Skin Other: Multiple skin avulsions and abrasions of elbows bilaterally, forearms, knees bilaterally. Bleeding controlled and bandages placed in ED. Neuro General: patient alert and patient oriented x3 Cognition: normal cognition Speech: speech normal Results - Hospitalist H&P Lab Results Labs: Laboratory Last Values Corrected WBC 5.1 X10E3/uL (4.1-10.5) 03/21/25 21:45 Uncorrected WBC Count 5.1 x10E3/uL (4.1-10.5) 03/21/25 21:45 RBC 3.80 x10E6/uL (3.90-5.60) L 03/21/25 21:45 Hgb 10.8 g/dL (13.0-17.0) L 03/21/25 21:45 Hct 32.8 % (38.8-50.0) L 03/21/25 21:45 MCV 86.3 fl (83.5-101) 03/21/25 21:45 MCH 28.4 pg (27.5-35.2) 03/21/25 21:45 MCHC 32.9 g/dL (32.5-35.6) 03/21/25 21:45 RDW 17.8 % (12.0-14.8) H 03/21/25 21:45 Plt Count 131 x10E3/uL (150-450) L 03/21/25 21:45 MPV 8.4 fl (6.6-10.1) 03/21/25 21:45 Neut % (Auto) 65.9 % (.) 03/21/25 21:45 Lymph % (Auto) 15.0 % (.) 03/21/25 21:45 Kemper % (Auto) 17.8 % (.) 03/21/25 21:45 Eos % (Auto) 0.5 % (.) 03/21/25 21:45 Baso % (Auto) 0.8 % (.) 03/21/25 21:45 Nucleat RBC Rel Count 0.1 /100 WBC (0-0.5) 03/21/25 21:45 Neut # (Auto) 3.4 x10E3/uL (1.8-7.7) 03/21/25 21:45 Lymph # (Auto) 0.8 x10E3/uL (1.00-4.8) L 03/21/25 21:45 Kemper # (Auto) 0.9 x10E3/uL (0.0-0.8) H 03/21/25 21:45 Eos # (Auto) 0.0 x10E3/uL (0.0-0.45) 03/21/25 21:45 Baso # (Auto) 0.0 x10E3/uL (0.0-0.2) 03/21/25 21:45 Monocyte Dist Width 18.70 % (0.00-20.00) 03/21/25 21:45 PT 24.2 Seconds (9.0-12.9) H 03/21/25 21:45 INR 2.2 03/21/25 21:45 PHA Creatinine Clear 53.12 03/21/25 21:45 Sodium 137 mmol/L (136-145) 03/21/25 21:45 Potassium 4.1 mmol/L (3.5-5.1) 03/21/25 21:45 Chloride 104 mmol/L (98-107) 03/21/25 21:45 Carbon Dioxide 25.0 mmol/L (21.0-31.0) 03/21/25 21:45 Anion Gap 12.1 mEq/L (6.0-15.0) 03/21/25 21:45 BUN 21 mg/dL (7-25) 03/21/25 21:45 Creatinine 0.93 mg/dL (0.70-1.30) 03/21/25 21:45 Est GFR (CKD-EPI) > 60.0 mL/Min 03/21/25 21:45 Glucose 127 mg/dL (70-100) H 03/21/25 21:45 Calcium 9.3 mg/dL (8.6-10.3) 03/21/25 21:45 Total Bilirubin 0.6 mg/dl (0.3-1.0) 03/21/25 21:45 AST 42 U/L (13-39) H 03/21/25 21:45 ALT 24 U/L (7-52) 03/21/25 21:45 Alkaline Phosphatase 111 U/L (34-104) H 03/21/25 21:45 Total Protein 7.2 gm/dL (6.4-8.9) 03/21/25 21:45 Albumin 4.3 gm/dL (3.5-5.7) 03/21/25 21:45 Globulin 2.9 gm/dL 03/21/25 21:45 Albumin/Globulin Ratio 1.5 03/21/25 21:45 Assessment & Plan Assessment/Plan (1) Fall from slip, trip, or stumble: Plan: Mechanical fall: CT/x-ray imaging unremarkable for acute findings. Blood work unremarkable. Multiple abrasions and patient is on OAC for A-fib. * Patient will benefit from PT OT prior to discharge. We will consult PT OT and case management forany home health needs. Pain control as needed. (2) Multiple skin tears: Plan: Wounds: forehead laceration with sutures placed in ED. Multiple skin tears, skin avulsions. * Will consult wound care for evaluation and discharge wound care instructions and follow-up. Plan Atrial fibrillation: Patient on medications to control and OAC. INR 2.2. We will resume patient's home meds and monitor potassium and magnesium for goal of 4.0 and 2.0 respectively HTN: Patient on home meds to control. Will resume home meds History of aortic stenosis: Patient on ASA and statin. Will resume home meds GERD: Patient on PPI. Will resume home meds HLD: Mixed. Patient on statin. We will resume home meds IP vs OBS Justification Based on differential dx, clinical care plan, and risk of adverse events, if untreated, in my clinical judgement this patient requires an acute care setting as: OBSERVATION because of an expectation of an under 2 midnight stay. Estimated length of stay (# of days): 2 Documented By: Grayson Prajapati APRN 02/06 0031 Signed By: 03/22/25 0109 [facility]10-07-2025 Radiology Diagnostic study note [facility] [place] [address] [place] [address] CT Scan Report Signed Patient: Fani Chua MR#: [id number] : 1935 Acct:[id number] Age/Sex: 89 / M ADM Date: 5 Loc: ER Room: Type: [facility] ER Attending Dr: Copies to: Caren Crooks Jr, MD~ Ordering Provider: Caren Crooks Jr, MD Date of Service: 03/21/25 CT/CT cervical spine wo con: fall, head inj CT CERVICAL SPINE WITHOUT CONTRAST: CLINICAL HISTORY: Fall COMPARISON: None TECHNIQUE: Spiral axial unenhanced images were obtained through the cervical spine. Sagittal, coronal reconstructions were also reviewed. This CT exam was performed using one or more following dose reduction techniques: Automated exposure control, adjustment of the mA and/or kV according to patientsize, or use of iterative reconstruction technique. FINDINGS: Mild reversal of the normal cervical lordosis. Severe intervertebralspace narrowing and C5-C7 and moderate severe interstitial disease and scarring C4-C5. Evidence of interbody ankylosis C2-C3 notably involving the posterior elements. No fracture or malalignment. Prevertebral soft tissues unremarkable. Biapical emphysematous changes. CT/CT cervical spine wo con IMPRESSION: NO CERVICAL SPINE FRACTURE Impression dictated by: Babar Ford M.D. 03/21/2025 9:57 PM Dictation Location: [place] [address] Transcribed By: [facility] 03/21/252156 Dictated By: Babar Ford MD 03/21/252154 Signed By: 03/21/252156 [facility] Work Phone: 1(825) 539-645510-07-2025 Radiology Diagnostic study [facility] [place] [address] [place], [place] [id number] CT Scan Report Signed Patient: Fani Chua MR#: [id number] : 1935 Acct:[id number] Age/Sex: 89 / M ADM Date: 5 Loc: ER Room: Type: [facility] ER Attending Dr: Copies to: Caren Crooks Jr, MD~ Ordering Provider: Caren Crooks Jr, MD Date of Service: 03/21/25 CT/CT head/brain wo con: fall, head inj, warfarin CT BRAIN WITHOUT CONTRAST: CLINICAL HISTORY: Fall COMPARISON: 02/26/2024 TECHNIQUE: Contiguous axial unenhanced images were obtained through the brain. This CT exam was performed using one or more following dose reduction techniques: Automated exposure control, adjustmentof the mA and/or kV accordingto patient size, or use of iterative reconstruction technique. FINDINGS: There is no evidence of midline shift, intra or extra-axial fluid collection, hemorrhage or CT evidence of acute vascular effusion stroke. Central involutional changes. Ldxu-hf-kraukjuw chronic small vessel ischemic disease. Visualized intraorbital contents appear unremarkable. Visualized paranasal sinuses are clear. Right forehead soft tissue swelling and subcutaneous hematoma noted. CT/CT head/brain wo con IMPRESSION: NO ACUTE INTRACRANIAL ABNORMALITY. RIGHT FOREHEAD SOFT TISSUE INJURY AND SUBCUTANEOUS HEMATOMA. Impression dictated by: Babar Ford M.D. 03/21/2025 9:54 PM Dictation Location: [place] [address] Transcribed By: [facility] 03/21/252153 Dictated By: Babar Ford MD 03/21/252151 Signed By: 03/21/252153 [facility] Work Phone: 1(670) 165-187309-22-2025 NoteOncology Progress Note Chief Complaint hx prostate ca; anemia; thrombocytopenia; monoclonal gammopathy; here to go over results. Oncological History/ROS/PE/Assessment and Plan Diagnoses 1. Thrombocytopenia (D69.6: Thrombocytopenia, unspecified) 2. 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 History of prostate cancer (Z85.46: Personal history of malignant neoplasm of prostate) 5. History of bladder cancer (Z85.51: Personal history of malignant neoplasm of bladder) History of Present Illness Fani is an 89-year-old gentleman with history of A-fib, [place] class II congestive heart failure, avascular necrosis [...] and MCHC 32.2 with RDW of 14.6 normaland platelet count of 126 low. There WBC differential revealed absolute neutrophil count 2.5 with absolute lymphocyte count 1.3 with absolute monocyte of 0.7 basophil is also normal however immature Gran absolute 0.06 slightly elevated. 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 B12 was 684 iron was 55 normal, folate is 12.5 normal, haptoglobin 193 normal. Iron saturation 24% ferritin 199 and TIBC 231 which is slightly decreased. Creatinine 0.86 normal calcium is normal 9.0 LFTs are normal total bili of 0.7 alk phos 128 slightly elevated and AST 28 ALT 21. Serum protein topheresis reviewed no M spike observed. Serum immunofixation revealed no monoclonality detected. Thekappa light chain was slightly elevated 27.8 however [...] is normal 1.8%. Folate is normal 9.0 [id number] 510. Iron studies revealed iron is normal [...] cannot be evaluated C the comments below: [place] and lambda staining cannot be interpreted due [...] any B symptoms and no enlarged LAP. 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 - Labs on 03/02/2025 revealed B12 489 creatinine is 0.93 calcium is normal 9.0 total protein is normal 7.7 albumin is normal alkaline phosphatase normal 107. ALT is normal 48 and AST is 53 slightly elevated. LDH is mildly elevated 264. Ferritin is 37.0 low normal. Folate is 13.7 normal WBC is 4.6 normal hemoglobin 11.0 mildly lower than 4 months ago. Platelet count is 96 down from 127 months ago. Monocyte count is still high 14%. Absolute (more content not included)... [facility] HospitalComment on above:Result Comment: Electronically Signed By: Jaison CLAYTON, Shiraz Mcconnell\.br\Date and Time Signed: 03/06/25 15:07 EDT 02-01-2025 History of Present illness Narrative* Jayy Joshua, BACTERIOLOGIST DAIRY - 02/01/2025 3:30 PM EDT Images from the original note were not included. Fani Chua is a 89 y.o. male presents with chief complaint of 1 month follow up (Pt is being seentoday for his 1 month follow up and managment of his chronic conditions. Pt was rx'ed Zoloft at last office visit. Pt states that its been going good. He would like to talk about different medications like Tramadol that he could take since he cannot mix the two. States that the Zoloft dose is adequa te for right now but might need dose [...] and persists throughout the day, with intermittent reliefdepending on his eating, drinking, and activity levels. He expresses concern about the potential impact of his smoking history and emphysema on his current symptoms. Despite these concerns, he reports that his home care nurse has consistently found his chest to be clear. His last chest x- ray was conducted a year ago. He does [...] calculus stricture CYSTOSCOPY 05/05/2023 NEUROMA SURGERY Right DC TOTAL HIP ARTHROPLASTY Left 03/29/2009 PROSTATECTOMY 1996 [...] were reviewed and followed. documented in this encounter[facility], [facility] [id number] History of Present illness Narrative* Jayy Joshua NP - 12/13/2024 2:00 PM EDT Images from the original note [...] followed by a small amount of phlegm inhis throat. He does not report any fever, chills, or sweats. He has a long history of smoking and was previously treated with antibiotics for lung and sinus infections. He does not use an inhaler anddoes not feel the need for one. He was given a sample of Trelegy last month and another type of inhaler by a nurse, but he did not feel the need to use them. - Onset: Persistent - Location: Throat - Character: Cough accompanied by sneezing, head drainage, saliva production, and a small amount ofphlegm - Alleviating/Aggravating Factors: Does not use an [...] wakes up feeling anxious every morning. His dtilgxqz-yi-wnl, who has a master's in psychology, has [...] between 2 and 3, taking cephalexin for awound - Severity: Informed in the ER about low magnesium levels, given IV magnesium History of Bladder and Prostate Cancer He has a history of bladder cancer diagnosed at age 52 and was treated at [facility] with BCG. 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 2. 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 -follows with NO -EF 40% Elevate legs, wear support stockings-RYAN hose or LEONARD wraps. Daily weights. 3. [...] are not necessary at this time. - Crgf-mlf-neqwssc Claritin can be used as needed. - [...] were reviewed and followed. documented in this encounterMercy Hospital [facility], formerly [facility] [id number] History of Present illness Narrative* Bonita Kingsley MD - 12/12/2024 3:50 PM EDT Chief Complaint Patient presents with Follow-up 6 [...] aortic stenosis status post TAVR 2019 at [facility]. Follow-up echocardiogram March 2024 revealed normal valve [...] so far. CBC has been on target 7-gprk-wwvvvimu mitral regurgitation based on echocardiogram March 2024. [...] losartan (COZAAR) 12.5 mg, oral, Daily, decrease fq-kie-RE-vit E-nsuaye-tznlamh (PreserVision AREDS 2 Plus MV) 200 mcg-15 [...] Echo Complete 2. 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 3. Chronic atrial fibrillation (Multi) Transthoracic Echo Complete 4. half-way (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 5. Essential (primary) [...] Attestation By signing my name below, I, Kathya MárquezRachel VIVAS , Scribe attest that this documentation has [...] exam, discussion and plan. documented in this encounterP[facility] Work Phone: 1(925) 278-964806-30-2025 Instructions* Patient Instructions* Kathya Dorman LPN - 12/12/2024 3:50 PM [...] time of your visit. documented in this encounterPike [facility] Hospital Work Phone: 1(423) 902-962406-05-2025 History of Present illness Narrative* María Anderson MD - 11/17/2024 10:15 AM EDT Images from the original note [...] first such incident. He has previously been treatedfor lung and sinus infections with antibiotics. Claritin [...] Coumadin therapy. Monthly INR checks report a stableINR of 2.3. In late June 2024, he woke up with a large purple spot on his body, which had bled significantly overnight. He received wound care from [facility] on Wednesdays and [facility] Home Nurse on Mondays and Fridays until 2 to 3 weeks ago. - Onset: Bruising and bleeding noted in late June 2024. - Location: Arms, legs, and body. - Character: Large purple spot, significant bleeding overnight. - Alleviating/Aggravating Factors: Coumadin therapy; wound care from [facility] and [facility] Nurse. - Timing: Monthly INR checks; wound [...] HISTORY: Past Medical History: Diagnosis Date A-fib ([facility]) AVN (avascular necrosis of bone) ([facility]) Bladder infection COVID-19 vaccine administered pfizer Diverticulitis Diverticulosis 2011 Diverticulosis of colon without hemorrhage Eczema Kidney stone Labyrinthitis 11/2008 Menstrual bleeding problem Neuroma right foot Prostate cancer ([facility]/HCC) SCC (squamous cell carcinoma) 2013 chest Toe pain 1995 right hallux Type 2 diabetes mellitus ([facility]/HCC) Ureteral calculus, left Visual impairment SURGICAL HISTORY: Past Surgical History: Procedure Laterality Date CARDIOVERSION 2007 COLONOSCOPY 2012 COLONOSCOPY 05/27/2018 CYSTOSCOPY 01/2009 CYSTOSCOPY cystoscopy ureteroscopy,left ureteral calculus stricture CYSTOSCOPY 05/05/2023 NEUROMA SURGERY Right DC TOTAL HIP ARTHROPLASTY Left 03/29/2009 PROSTATECTOMY 1996 [...] coincided with the onset of symptoms, raising thepossibility of a drug reaction. - A note will be sent to Dr. Kingsley regarding the potential need to discontinue enalapril or switch to losartan to assess symptom improvement. - The use of nasal sprays is not recommended due to the risk of exacerbating nosebleeds. Instead, urvz-gwr-jiygbbm nasal saline spray is advised, with 2 [...] thinners and slightly low platelet count. - Lvgz-pib-ydawbxg nasal saline spray is recommended, with 2 [...] Kingsley on December 12. documented in this encounterMercy Hospital South, formerly [facility] [id number] NoteOncology Progress Note Chief Complaint Follow up on prostate cancer [...] an 89-year-old gentleman with history of A-fib, [place] class II congestive heart failure, avascular necrosis [...] and MCHC 32.2 with RDW of 14.6 normaland platelet count of 126 low. There WBC differential revealed absolute neutrophil count 2.5 with absolute lymphocyte count 1.3 with absolute monocyte of 0.7 basophil is also normal however immature Gran absolute 0.06 slightly elevated. 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 B12 was 684 iron was 55 normal, folate is 12.5 normal, haptoglobin 193 normal. Iron saturation 24% ferritin 199 and TIBC 231 which is slightly decreased. Creatinine 0.86 normal calcium is normal 9.0 LFTs are normal total bili of 0.7 alk phos 128 slightly elevated and AST 28 ALT 21. Serum protein topheresis reviewed no M spike observed. Serum immunofixation revealed no monoclonality detected. Thekappa light chain was slightly elevated 27.8 however [...] is normal 1.8%. Folate is normal 9.0 [id number] 510. Iron studies revealed iron is normal [...] cannot be evaluated C the comments below: [place] and lambda staining cannot be interpreted due [...] tendency. Musculoskeletal: No de (more content not included)...[facility] 10-[facility]24 NoteOncology Progress Note Chief Complaint New pt here for anemia thrombocytopenia, no specific questions or concerns. History of Present Illness Fani is an 89-year-old gentleman with history of A-fib, [place] class II congestive heart failure, avascular necrosis [...] and MCHC 32.2 with RDW of 14.6 normaland platelet count of 126 low. There WBC differential revealed absolute neutrophil count 2.5 with absolute lymphocyte count 1.3 with absolute monocyte of 0.7 basophil is also normal however immature Gran absolute 0.06 slightly elevated. 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 B12 was 684 iron was 55 normal, folate is 12.5 normal, haptoglobin 193 normal. Iron saturation 24% ferritin 199 and TIBC 231 which is slightly decreased. Creatinine 0.86 normal calcium is normal 9.0 LFTs are normal total bili of 0.7 alk phos 128 slightly elevated and AST 28 ALT 21. Serum protein topheresis reviewed no M spike observed. Serum immunofixation revealed no monoclonality detected. Thekappa light chain was slightly elevated 27.8 however [...] etiologies like MPN, fac (more content not included)...[facility]04-[facility] History of Present illness Narrative* Maria Fernanda Laws, BACTERIOLOGIST DAIRY - 10/04/2024 1:00 PM EDT Images from the original note were not included. Subjective Patient ID: Fani Chua (: 1935) is a 89 y.o. male who presents for Sinus Problem. HPI History of Present Illness The patient presents for evaluation of a sinus infection. He has been under the care of a home health nurse from [facility] since June 2024 for a [...] having a sore throat a few weeks ago,but it was not severe. Discomfort in the [...] CHF (congestive heart failure), NYHA class II ([facility]) Chronic atrial fibrillation (HCC) ([facility]) Degeneration of lumbar intervertebral disc Centrilobular emphysema ([facility]/HCC) Gastroesophageal reflux disease without esophagitis PVD (peripheral vascular disease) ([facility]) Tobacco abuse Venous insufficiency (chronic) (peripheral) Malignant neoplasm of prostate ([facility]/HCC) Lumbosacral spondylosis without myelopathy Laryngopharyngeal reflux Diverticulosis, sigmoid Carcinoma in situ of bladder 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 ([facility]) Anemia S/P aortic valve replacement History of gout Mixed hyperlipidemia ([facility]/HCC) Prediabetes Pulmonary hypertension ([facility]/HCC) Chronic venous hypertension (idiopathic) with inflammation [...] a different antibiotic due to incomplete resolution withthe previous treatment. - Prescribed doxycycline 100 mg twice daily for 7 days and a 5-day course of prednisone. Prescriptions sent to [facility] in [place]. Advised to take doxycycline with food and [...] -Follow up for Next scheduled follow-up. Maria Frenanda Laws NP documented in this encounterMercy Hospital South, formerly [facility] [id number] Radiology Diagnostic study [facility] [place] [address] CT Scan Report Signed Patient: Fani Chua MR#: [id number] : 1935 Acct:[id number] Age/Sex: 89 / M ADM Date: 5 Loc: ER Room: Type: [facility] ER Attending Dr: Copies to: Gely Lin APRN~ Ordering Provider: eGly Lin APRN Date of Service: 06/15/24 CT/CT abdomen pelvis wo con: abdominal pain CT Abdomen and Pelvis withoutcontrast TECHNIQUE: Axial imaging with 2-D reconstruction. . The CT exam was performed using one or more thefollowing dose reduction techniques: Automated exposure control, adjustment of the MA and/or Kv according to patient size, or use of theiterative reconstruction technique. COMPARISON: 12/20/2023 History: Abdominal pain. Left flank pain. Fever. History of prostate and bladder cancer nonspecificmild left perinephric stranding. LIMITATIONS: None LOWER THORAX [...] 2:39 PM Dictation Location: RADIO-PC-20 Transcribed By: [facility] 06/15/24 1439 Dictated By: Trey Murray DO 06/15/24 1433 Signed By: 06/15/24 1439 [facility]12-30-2024 History of Present illness Narrative * Rosalinda Caro NP - 06/13/2024 2:00 PM EST Images from the original note were not [...] concern is mobility, specifically his ability to walk.He has not undergone any recent blood work. He has a history of type 2 diabetes, with his A1c levels never exceeding 5.9. He has not experienced any gout flare- ups for several months. He has no history of hypertension. His daily diet includes three jumbo eggs and dial for breakfast. He has no history of chickenpox and retains his tonsils. He does not have a living will or power of tax associate attorney. He expresses a desire for resuscitation [...] Anderson MD as PCP - ACO Reach Monica Hook MD as Referring Physician (Dermatology) Julio [...] Yes Vision Screening: Yes, patient sees regular animal rehabilitator/refuse driver Hearing Screening: Yes, concerned about hearing loss Cognitive Screening Three Word Registration: Banana, [place], Chair Clock Drawing: Normal Clock - 2 Three Word Recall: All 3 words correct - 3 Total Score (0-5 Points): 5 HISTORIES: PAST MEDICAL HISTORY: Past Medical History: Diagnosis Date A-fib ([facility]/HCC) AVN (avascular necrosis of bone) (CMS/HCC) Bladder infection COVID-19 vaccine administered pfizer Diverticulitis Diverticulosis 2011 Diverticulosis of colon without hemorrhage Eczema Kidney stone Labyrinthitis 11/2008 Menstrual bleeding problem Neuroma right foot Prostate cancer (CMS/HCC) SCC (squamous cell carcinoma) 2013 chest Toe pain 1996 right hallux Type 2 diabetes mellitus (CMS/HCC) Ureteral calculus, left Visual impairment SURGICAL HISTORY: Past Surgical History: Procedure Laterality Date CARDIOVERSION 2007 COLONOSCOPY 2012 COLONOSCOPY 05/27/2018 CYSTOSCOPY 01/2009 CYSTOSCOPY cystoscopy ureteroscopy,left ureteral calculus stricture CYSTOSCOPY 05/05/2023 NEUROMA SURGERY Right DC TOTAL HIP ARTHROPLASTY Left 03/29/2009 PROSTATECTOMY 1997 [...] with eag 3. 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(CMS/HCC) Doing well. Denies any anginal symptoms. Continue [...] tramadol 50 mg will be sent to [facility]. He is advised to inform us if he needs a larger quantity inthe future, and Dr. Anderson can adjust the [...] puffs every 6 (six) hours if needed forwheezing or shortness of breath Do not use [...] list of other current medical providers was es tablished/updated. Time was spent discussing health maintenance issues, ordering proper testing, and a schedule was provided regarding recommended screening. We discussed safety issues and fall risk.Depression screening was completed and addressed. Fall screening was completed and addressed. Cognitive function was assessed by direct observation and assessment of ability to perform ADL's and IADL's was done. The current BMI was provided and will continue to be monitored at routine office visitsas well. Major risk factors for chronic disease [...] today and is supervising patient care. I amfollowing Dr. Anderson's established plan of care for the above issues. documented in this encounterMercy Hospital South, formerly [facility] [id number] History of Present illness Narrative* Bonita Kingsley MD - 05/18/2024 9:30 AM EST Subjective Fani Chua is a 88 y.o. [...] mg) by mouth. Take as directed by [facility], Disp: , Rfl: Assessment/Plan 1. [...] exam, discussion and plan. documented in this [facility] Work Phone: 1(547) 435-363412-04-2024 Instructions* Patient Instructions* Gricelda Sena LPN - 05/18/2024 9:30 AM [...] medications May follow up documented in this encounterPike [facility] Hospital Work Phone: 1(630) 252-335611-11-2024 History of Present illness Narrative* Ewa Blum MA - 04/25/2024 11:11 AM EST Pt calls for refill of Tramadol refill to [facility]. Last fill 04/06. Rx pending. documented in this encounterMercy Hospital South, formerly [facility]. [facility] [id number] History of Present illness Narrative* Bonita Kingsley MD - 04/18/2024 2:00 PM EST Subjective Fani Chua is a 88 y.o. [...] aortic stenosis status post TAVR 2019 at [facility]. Follow-up echocardiogram March 2024 revealed normal valve function.. Ejection fraction 40%. Currently asymptomatic,discussed with the patient utilizing small dose of [...] with anticoagulation with no complications so far. 6-qkwt-mnzniurc mitral regurgitation based on echocardiogram March 2024. [...] mg) by mouth. Take as directed by [facility], Disp: , Rfl: enalapril (Vasotec) 2.5 mg tablet, Take 1 tablet (2.5 mg) by mouth 2 times a day., Disp: 180 tablet, Rfl: 3 Assessment/Plan 1. Nonrheumatic aortic valve stenosis Follow Up In Cardiology 2. Status post transcatheter aortic valve replacement 3. Coronary artery disease, unspecified vessel or lesion type, unspecified whether angina present, unspecified whether red devil or transplanted heart 4. Pulmonary hypertension (Multi) 5. Congestive heart failure, NYHA class 2, unspecified congestive heart failure type enalapril (Vasotec) 2.5 mg tablet Follow Up In Cardiology Basic Metabolic Panel Follow Up In Cardiology Basic Metabolic Panel 6. Permanent atrial fibrillation (Multi) 7. PVD (peripheral vascular disease) ([facility]) 8. Former smoker 9. BMI 23.0-23.9, adult Scribe Attestation By signing my name below, I, Gricelda Pascal LPN , Yaneli attest that this [...] exam, discussion and plan. documented in this encounterPike [facility] Hospital Work Phone: 1(854) 660-320411-04-2024 Instructions* Patient Instructions* Gricelda Sena LPN - 04/18/2024 2:00 PM [...] one month 6 months documented in this encounterPike [facility] Hospital Work Phone: 1(539) 126-794310-25-2024 Telephone encounter Note* Telephone Encounter - CHALO Espinal - 04/08/2024 1:12 PM EDT [facility]ound [facility] [id number] Miscellaneous Notes* Telephone Encounter - CHALO Espinal - 04/08/2024 1:12 PM EDT Wound pain documented in this encounterMercy Hospital South, formerly [facility] [id number] History of Present illness Narrative* Maria Fernanda Laws, CHICA - 04/06/2024 2:20 PM EDT Images from the original note were not included. Subjective Patient ID: Fani Chua (: 1935) is a 88 y.o. male who presents for Wound Check and Referral. Wound Check Patient presents today for [facility] for a referral for HH. He states he recently has a hedis abstractor accident this past Thursday that caused a wound to his left lower leg. He does have this wrapped at the time of visit which he did wrap over the weekend. He did want to remove the dressing himself today butcould not bring himself to do so due to the pain and bleeding. He is currently on Coumadin. He states he did have a recent tetanus immunization. He states he has had HH in the past through [facility] and would like the referral to be made to them again. Today he is in a great amount of discomfort. He hasnot seeked any medical care since this injury [...] CHF (congestive heart failure), NYHA class II ([facility]) Chronic atrial fibrillation (HCC) ([facility]) Degeneration of lumbar intervertebral disc Emphysema of lung ([facility]) Gastroesophageal reflux disease without esophagitis PVD (peripheral vascular disease) ([facility]) Tobacco abuse Venous insufficiency (chronic) (peripheral) Malignant neoplasm of prostate ([facility]) Lumbosacral spondylosis without myelopathy Laryngopharyngeal reflux Diverticulosis, sigmoid Carcinoma in situ of bladder CAD (coronary artery disease) ([facility]) Anemia S/P aortic valve replacement History of gout Mixed hyperlipidemia ([facility]) Prediabetes Pulmonary hypertension ([facility]) Chronic venous hypertension (idiopathic) with inflammation of [...] Patient presents today to discuss referral for due to needing wound assistance after a injury while using his hedis abstractor. He states he did this on Thursday and he was able to wrap the leg himself.This did bleed for quite sometime due to his Coumadin. Today the dressing was full of dried blood. This did take multiple normal saline rinses today loosen the dressing. Patient was in a great amountof pain during the dressing change. The wound was severe upon first assessment. I did confirm a pulse in the foot. He does have some edema which is related to the injury. He has great sensation in that leg. His last tetanus was in December 2023. I will start him on DOXY as directed. He does monitor hisINR monthly which I advised he inform them of the antibiotic use. I did call both [facility] wound and Nery tejeda. Nery is able to see him this week on Thursday at 11:30. I did confirm this was ok with the patient and he agreed. I did give him the directions for the appt. I will send referral to [facility] for home wound care. I advised [...] time exceeded 1 hour. documented in this encounterMercy Hospital South, formerly [facility] [id number] History of Present illness Narrative* Monica Hook MD - 03/22/2024 1:30 PM EDT Lesions: Location: right ear Duration: long time [...] for any new/changing lesions documented in this encounterMer[facility], formerly [facility] [id number] History of Present illness Narrative* Maria Fernanda Laws, BACTERIOLOGIST DAIRY - 03/07/2024 2:00 PM EDT Images from the original note [...] up. He has previously consulted with an it support specialist for hip issues and another one in [place] for a hip replacement in October 2023. In December 2023, he fractured his kneecap and was treated by . Current Outpatient Medications Medication Instructions aspirin 81 [...] CHF (congestive heart failure), NYHA class II ([facility]) Chronic atrial fibrillation (HCC) ([facility]) Degeneration of lumbar intervertebral disc Emphysema of lung ([facility]) Gastroesophageal reflux disease without esophagitis PVD (peripheral vascular disease) ([facility]) Tobacco abuse Venous insufficiency (chronic) (peripheral) Malignant neoplasm of prostate ([facility]) Lumbosacral spondylosis without myelopathy Laryngopharyngeal reflux Diverticulosis, sigmoid Carcinoma in situ of bladder CAD (coronary artery disease) ([facility]) Anemia S/P aortic valve replacement History of gout Mixed hyperlipidemia ([facility]) Prediabetes Pulmonary hypertension ([facility]) Chronic venous hypertension (idiopathic) with inflammation of [...] hand and bicep. There is concern for afull rotator cuff tear given the symptoms and lack of range of motion. An immediate referral to orthopedics is recommended for further evaluation and management. Advised patient he has an appt with Dr. Garcia at [facility] 03/08/2024 at 11:15. Problem List Items Addressed [...] Maria Fernanda Laws NP documented in this encounterMercy Hospital South, formerly [facility] [id number] History and physical note Author Bright Lopez [facility] February 26, 2024 4:41pmNote Date/TimeSeptember 2023 4:16pm[place] [address] Hospitalist H&P Signed Patient: Fani Chua MR#: [id number] : 1935 Acct:[id number] Age/Sex: 88 / M Adm Date: 4 Loc: 3T Room: [address] [place] [address] Type: ADM IN Attending Dr: Bright Lopez [...] and was exerting himself without any major issue.He occasionally uses a cane as an assistive device, and woke up today with diffuse tremors and shaking throughout his body bilaterally in the upper and lower extremities. He was aware during this episode of everything going on with himself. He then started to ambulate and had difficulty with dizzine ss/lightheadedness, but does not describe this as the [...] that which is noted above in HPI [facility] Medical History (Updated 02/26/24 @ 16:41 by [...] Verified 02/26/24 14:05) Rash bacitracin [From Neosporin (axl-wow-dldjt)] Allergy (Unknown, Verified 02/26/24 14:05) itch and rash, rash neomycin [From Neosporin (njg-mje-pctos)] Allergy (Unknown, Verified 02/26/24 14:05) itch and rash, rash Penicillins Allergy (Unknown, Verified 02/26/24 14:05) Anaphylaxis polymyxin B [From Neosporin (lwu-rzl-gejwp)] Allergy (Unknown, Verified 02/25/2414:05) Rash and itch, [...] days #45 tabs 12/23/23 [Rx Confirmed 02/26/24] fhthadpq-jwijbgvz-yhkan acid 500 mcg-lutein 5 mg-zeaxanth 1 mg [...] % (Auto) 11.1 % (.) 02/26/24 10:06 Kemper % (Auto) 15.6 % (.) 02/26/24 10:06 Eos % (Auto) 0.8 % (.) 02/26/24 10:06 Baso % (Auto) 0.6 % (.) 02/26/24 10:06 Nucleat RBC Rel Count 0.1 /100 WBC (0-0.5) 02/26/24 10:06 Neut # (Auto) 3.4 x10E3/uL (1.8-7.7) 02/26/24 10:06 Lymph # (Auto) 0.5 x10E3/uL (1.00-4.8) L 02/26/24 10:06 Kemper # (Auto) 0.7 x10E3/uL (0.0-0.8) 02/26/24 10:06 [...] pH 5.0 (5.0-9.0) 02/26/24 11:26 Ur Specific [place] 1.017 (1.001-1.030) 02/26/24 11:26 Urine Protein Negative [...] has no evidence of acute infectious process. EKGappears to be at baseline with stable atrial [...] signed by Bright Lopez MD> 02/26/24 1641 [facility] Work Phone: 1([phone]) 764-827009-04-2024 History of Present illness Narrative* Rosalinda Caro NP - 02/17/2024 3:00 PM EDT Images from the original note were not included. Fani Chua is a 88 y.o. male presents with chief complaint of Post Hospital HPI: HPI Patient was [place] [facility] [place]24 with TIA. He has [facility] Nursing, PT, OT twice weekly. He [...] 2023 and had a follow-up appointment in [place]. He has been receiving home health care, [...] Flowsheet Row Patient Outreach from 01/26/2024 in [facility] with [facility] Information ED, Hospital or Retirement Facility Discharge? Hospital [DX: TIA] Patient has been contacted within two business days of discharge Yes [unable to reach patient x 2, no return call] Discharge [facility] Discharge Date 01/23/24 Engagement Medications Appointments [...] calculus stricture CYSTOSCOPY 05/05/2023 NEUROMA SURGERY Right DC TOTAL HIP ARTHROPLASTY Left 03/29/2009 PROSTATECTOMY 1997 PYELOGRAM RETROGRADE UNI OR BI Right 05/05/2023 hydronephrosis ROTATOR CUFF REPAIR Left 04/2015 SKIN CANCER EXCISION Mid frontal scalp, SCC, Mohs Surgery 02/04/23 TOE SURGERY Right 1995 R hallux fused TOTAL HIP ARTHROPLASTY Right 12/18/2020 TUMOR EXCISION 1995 bladder cancer SOCIAL HISTORY: Social History Tobacco [...] any problems or concerns. documented in this encounterMercy Hospital South, formerly St. [facility] [id number] Consult note Author Buck Glover [facility] January 22, 2024 1:50pmNote Date/TimeAugust 2023 10:52[place] [address] Neurology Consult Note Signed Patient: Fani Chua MR#: [id number] : 1935 Acct:[id number] Age/Sex: 88 / M Adm Date: 4 Loc: 3T Room: [address] [place] [address] Type: ADM INOo Attending Dr: Minna Patricia MD Copies to: DO Minna Doe MD Robert L Hill, MD~ HPI Consult Date: 01/22/24 Clean Up Helper Banquet: Buck Glover DO [facility] Medical History Right patella fracture History of [...] Verified 01/21/24 15:33) Rash bacitracin [From Neosporin (rkn-zcb-ukyov)] Allergy (Unknown, Verified 01/21/24 15:33) itch and rash, rash neomycin [From Neosporin (isa-avg-zzqmh)] Allergy (Unknown, Verified 01/21/24 15:33) itch and rash, rash Penicillins Allergy (Unknown, Verified 01/21/24 15:33) Anaphylaxis polymyxin B [From Neosporin (evt-sao-inmhr)] Allergy (Unknown, Verified 01/20/2415:33) Rash and itch, [...] CARDIOMEGALY WITHOUT ACUTE PROCESS. Impression dictated by: Jerrod Panda Jr.ORachel01/21/2024 3:58 PM Dictation Location: [facility] 01/21/24 15:19 IMPRESSION: No acute intracranial pathology. No evidence of critical stenosis, aneurysmal dilatation, dissection or occlusion. Impression dictated by: Jerrod Panda Jr.ORachel01/21/2024 3:47 PM Dictation Location: [facility] Therapy Recommendations Therapy Recommendations: ST Recommendations Liquid [...] be okay. Initially it sounds like he mightof had some nausea and presyncope. When symptoms did not resolve, he came into the emergency department for evaluation around 3 PM. There was initial concern thatthe arm symptoms could be cardiac, given the associated symptoms. Troponins were not elevated. His symptoms did eventually resolve completely and have not come back. The left upper extremity feels completely normal. No other new symptomsto report. No overnight events. 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 He is asymptomatic and already effectively medically maximized. 4. Outpatient neurology follow-up; okay for discharge from my standpoint Documented By: Buck Glover DO 01/22/24 1048 Signed By: <Electronically signed by Buck Glover DO> 01/22/24 1350 [facility] Work Phone: 1(389) 310-249208-09-2024 Hospital Discharge instructionsAmbulatory Orders* Initiate Home Health [...] management and education -See speech therapy recs [facility] Work Phone: 1([phone]) 891-676108-08-2024 History and physical note Author Minna Patricia [facility] January 21, 2024 8:29pmNote Date/TimeAugust 2023 6:57pm[place] [address] Hospitalist H&P Signed Patient: Fani Chua MR#: [id number] : 1935 Acct:[id number] Age/Sex: 88 / M Adm Date: 4 Loc: 3T Room: [address] [place] [address] Type: ADM INOo Attending Dr: Donnell Amos [...] that symptoms started around 1 PM this afternoon.He states that nausea and lightheadedness have resolved, however he still has numbness and tinglingto his fingers. He has a history of TIA last May and was afraid that symptoms were going to beprogressive. Hedenies any headache or dizziness, his speech is clear. No chest pain or palpitation.No cough, dyspnea, or pain with inspiration. No abdominal pain or indigestion, constipation or diarrhea, nausea or vomiting. No dysuria or retention. No fevers. Upon arrival to the ER, head CT did not show any acute intracranial pathology. Head/neck CTA did not show any evidence of critical stenosis, aneurysmal dilatation, dissection or occlusion. He will beadmitted by the hospitalist team for further evaluation [...] [facility] disease 67 yrs [facility]: Diagnosed with Cancer Other Afib Social History Smoking Status: Never smoker Tobacco Type: cigarettes Substance Use Type: Alcohol Substance Abuse Comment: beer with dinner Meds Medications and Allergies Allergies amoxicillin Allergy (Severe, Verified 01/21/24 15:33) Swelling of Lip/Tongue/Throat adhesive Allergy (Unknown, Verified 01/21/24 15:33) Rash bacitracin [From Neosporin (yni-kpp-fshec)] Allergy (Unknown, Verified 01/21/24 15:33) itch and rash, rash neomycin [From Neosporin (kub-qio-iyavw)] Allergy (Unknown, Verified 01/21/24 15:33) itch and rash, rash Penicillins Allergy (Unknown, Verified 01/21/24 15:33) Anaphylaxis polymyxin B [From Neosporin (byr-wje-dxhvp)] Allergy (Unknown, Verified 01/20/2415:33) Rash and itch, [...] 15:14 Lymph % (Auto) N/A 01/21/24 15:14 Kemper % (Auto) N/A 01/21/24 15:14 Eos % (Auto) N/A 01/21/24 15:14 Baso % (Auto) N/A 01/21/24 15:14 Nucleat RBC Rel Count N/A 01/21/24 15:14 Neut # (Auto) N/A 01/21/24 15:14 Lymph # (Auto) N/A 01/21/24 15:14 Kemper # (Auto) N/A 01/21/24 15:14 Eos # [...] <Electronically signed by Minna Patricia MD> 01/21/242028 [facility] Work Phone: 1(956) 704-684407-16-2024 Progress note Author Henry Clark [facility] December 29, 2023 12:24pmNote Date/TimeJuly 2023 12:42pm[place] [address] Physiatry(Rehab) Progress Note Signed Patient: Fani Chua MR#: [id number] : 1935 Acct:[id number] Age/Sex: 88 / M Adm Date: 4 Loc: Room: [address] [place] [address] Type: ADM IN Attending Dr: Henry Clark [...] from the hospital on 12/19 who [facility] due [facility] severe pain and inability [...] very well this morning. Pain is mild. Hehas no cardiopulmonary complaints. No GI or symptoms. He tolerated a.m. PT session very well. He ambulated 580 feet with a walker/straight cane and supervision/standby assistance. He is asking to go home soon as he feels at his functional baseline. Case management is aware, willplan for Thursday or this week. Review of [...] and obtained and summated medical records and haveordered follow up lab tests and imaging studies as needed for rehabilitation care. Medications and Allergies Allergies and Active Meds: Allergies amoxicillin Allergy (Severe, Verified 12/21/23 20:12) Swelling of Lip/Tongue/Throat adhesive Allergy (Unknown, Verified 12/21/23 20:12) Rash bacitracin [From Neosporin (vvb-gwe-kvhfw)] Allergy (Unknown, Verified 12/21/23 20:12) itch and rash, rash neomycin [From Neosporin (agb-iuk-wykzy)] Allergy (Unknown, Verified 12/21/23 20:12) itch and rash, rash Penicillins Allergy (Unknown, Verified 12/21/23 20:12) Anaphylaxis polymyxin B [From Neosporin (brf-vet-doegc)] Allergy (Unknown, Verified 12/21/2419:12) Rash and itch, [...] mg 12/23/23 15:35 Bisacodyl 10 Mg Supp.Rect DC 12/22/24 15:34 DAILY PRN Constipation Docusate Sodium 100 mg 12/23/23 15:35 12/24/23 05:43 Docusate 100 Mg Capsule PO 12/22/24 15:34 100 mg BID PRN Administration Constipation Docusate Sodium 283 mg 12/23/23 15:35 Docusate Enema 283 Mg/5 Ml Enema DC 12/22/24 15:34 DAILY PRN Constipation Lactulose 30 [...] as above presents with hemarthrosis and right patellafracture in the setting of Coumadin use, he has represented to the hospital after being discharged home and unable to manage safely given comorbidities, fracture management, need for orthosis for immo bilization and risk for recurrent hemarthrosis in the [...] I spent 26 minutes for services, including oggg-rm-jpmd encounter with the patient, discussion of the case, plan of care, and exam; and dgioecd-az-vrfv activities, such as reviewing pertinent admissions consultant documentation, recent therapynotes, laboratory and radiology studies, and discussion of case with care team including physician, nursing, spring encaser, and therapists. More than 50 % of time was spent on patient/family counseling or coordination ofcare. <Statement entered by Henry Clark MD - 12/29/23 12:22> This documentation has been reviewed and approved. Documented By: Cherelle Schmidt APRN 12/28/23 1 236 Signed By: <Electronically signed by BENJI Schmidt> 12/28/23 1242 <Electronically signed by Henry Clark MD> 12/29/23 1224 [facility] Work Phone: 1(233) 883-151707-12-2024 Consult note Author Ashley Merritt [facility] December 25, 2023 7:46amNote Date/TimeJuly 2023 1:42pm[place] [address] Hospitalist Consult Note Signed Patient: Fani Chua MR#: [id number] : 1935 Acct:[id number] Age/Sex: 88 / M Adm Date: 4 Loc: Room: [address] [place] [address] Type: ADM IN Attending Dr: Henry Clark [...] superficial lacerations and excoriations of bilateral knees aftersustaining a mechanical fall. Imaging demonstrated a commuted [...] pain with inspiration. No abdominal pain or indigest ion,constipation or diarrhea, nausea or vomiting. No dysuria or retention. No headache or dizziness. No fevers Review of Systems Review of Systems Review of systems: 10 point review of systems obtained, negative unless noted in the HPI below [facility] Medical History (Updated 12/24/23 @ 13:41 by [...] Heart disease 67 yrs [facility]: Diagnosed with Cancer Social History Smoking Status: Former smoker Tobacco Type: cigarettes Substance Use Type: None Substance Abuse Comment: one beer daily Meds Medications and Allergies Allergies amoxicillin Allergy (Severe, Verified 12/21/23 20:12) Swelling of Lip/Tongue/Throat adhesive Allergy (Unknown, Verified 12/21/23 20:12) Rash bacitracin [From Neosporin (zlv-udj-mseqo)] Allergy (Unknown, Verified 12/21/23 20:12) itch and rash, rash neomycin [From Neosporin (kwv-yjk-mhgqx)] Allergy (Unknown, Verified 12/21/23 20:12) itch and rash, rash Penicillins Allergy (Unknown, Verified 12/21/23 20:12) Anaphylaxis polymyxin B [From Neosporin (uwk-xsx-mjfsm)] Allergy (Unknown, Verified 12/21/2419:12) Rash and itch, [...] inh inhalation Q4HR PRN shortness of breath orwheezing #8.5 grams 12/23/23 [Rx Confirmed 12/23/23] oxycodone [...] Dose Route Start Last Admin Trade Name Kamq PRN Reason Stop Dose Admin Acetaminophen 500 [...] mg 12/23/23 15:35 Bisacodyl 10 Mg Supp.Rect DC 12/22/24 15:34 DAILY PRN Constipation Docusate Sodium 100 mg 12/23/23 15:35 12/24/23 05:43 Docusate 100 Mg Capsule PO 12/22/24 15:34 100 mg BID PRN Administration Constipation Docusate Sodium 283 mg 12/23/23 15:35 Docusate Enema 283 Mg/5 Ml Enema DC 12/22/24 15:34 DAILY PRN Constipation Lactulose 30 [...] % (Auto) 66.9, Lymph % (Auto) 15.2, Kemper % (Auto) 14.8, Eos % (Auto) 2.6, Baso % (Auto) 0.5, Nucleat RBC Rel Count 0.2, Neut # (Auto) 4.4, Lymph # (Auto) 1.0, Kemper # (Auto) 1.0 H, Eos # (Auto) 0.2, Baso # (Auto) 0.0, PT 14.7 H,INR1.3, PHA Creatinine Clear 59.23, Sodium 137, Potassium 4.4, Chloride 102, Carbon Dioxide 25.3, Anion Gap 14.1, BUN 30 H, Creatinine 0.87, Est GFR (CKD-EPI) > 60.0, Glucose 94, Calcium 8.5 L, TotalBilirubin 1.0, AST 25, ALT 23, Alkaline Phosphatase [...] 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 Documented By: Italia MooreBENJI 12/24/23 1335 Signed By: <Electronically signed by BENJI Moore> 12/24/23 1836 <Electronically signed by Ashley Merritt MD> 12/25/23 0746 [facility] Work Phone: 1([phone]) 466-120807-11-2024 History and physical note Author Henry Clark [facility] December 24, 2023 12:19pmNote Date/TimeJuly 2023 9:55[place] [address] Physiatry (Rehab) H&P Signed Patient: Fani Chua MR#: [id number] : 1935 Acct:[id number] Age/Sex: 88 / M Adm Date: 4 Loc: Room: [address] [place] [address] Type: ADM IN Attending Dr: Henry Clark [...] from the hospital on 12/19 who [facility] to severe pain and inability [...] immobilizer donning. Needed some encouragement with therapy. [facility] Medical History Patella fracture right.12/20/23 Hyperlipidemia Emphysema [...] Verified 12/21/23 20:12) Rash bacitracin [From Neosporin (yuw-cfr-qskbm)] Allergy (Unknown, Verified 12/21/23 20:12) itch and rash, rash neomycin [From Neosporin (pak-ohy-byywr)] Allergy (Unknown, Verified 12/21/23 20:12) itch and rash, rash Penicillins Allergy (Unknown, Verified 12/21/23 20:12) Anaphylaxis polymyxin B [From Neosporin (lrx-fyn-gnxxz)] Allergy (Unknown, Verified 12/21/2419:12) Rash and itch, [...] inh inhalation Q4HR PRN shortness of breath orwheezing #8.5 grams 12/23/23 [Rx Confirmed 12/23/23] oxycodone [...] Bisacodyl (Bisacodyl 10 Mg Supp.Rect) 10 mg DC DAILY PRN PRN Reason: Constipation Stop: 12/22/24 15:34 Docusate Sodium (Docusate 100 Mg Capsule) 100 mg PO BID PRN PRN Reason: Constipation Stop: 12/22/24 15:34 Last Admin: 12/24/23 05:43 Dose: 100 mg Docusate Sodium (Docusate Enema 283 Mg/5 Ml Enema) 283 mg DC DAILY PRN PRN Reason: Constipation Stop: 12/22/24 [...] % (Auto) 66.9 Lymph % (Auto) 15.2 Kemper % (Auto) 14.8 Eos % (Auto) 2.6 Baso % (Auto) 0.5 Nucleat RBC Rel Count 0.2 Neut # (Auto) 4.4 Lymph # (Auto) 1.0 Kemper # (Auto) 1.0 H Eos # (Auto) [...] and obtained and summated medical records and haveordered follow up lab tests and imaging studies as needed for rehabilitation care. Individualized Plan of Care Individualized Plan of Care Plan of Care: Individualized Overall Plan of Care: Admit Date/Time: December 23, 2023 Expected LOS: 14 days Expected Discharge Destination: Home Rehabilitation [facility]: 08.9 Primary Diagnosis: Right patella fracture; [...] improve pt's strength, endurance, bed mobility, transfers (sit- stand), standing balance, gait quality on level surfaces [...] 24 hour daily monitoring and intervention from Grade Teacher as well as other consulting physicians including internal medicine as well as 24 hour daily human resource internship nursing - for medical safe / optimal manageme nt. Patient requires interdisciplinary therapy team rehabilitation care including OT, PT, SW, RehabNursing, requires and can tolerate at least 3 [...] as above presents with hemarthrosis and right patellafracture in the setting of Coumadin use, he has represented to the hospital after being discharged home and unable to manage safely given comorbidities, fracture management, need for orthosis for immo bilization and risk for recurrent hemarthrosis in the [...] Allied health note review, nursing note review, admissions consultant note review,discussion with nursing and case management, and more than 50% of my time was spent on counseling and coordination of care, time spent 70 minutes Patient was personally seen by me, Dr. Clark, on the day of encounter, within 24hours of rehab admission, reviewed the history and the relevant portions of the chart, including current orders, alliedhealth and admissions consultant notes, labs/imaging and performed orellana elements of exam and I formulated the plan of care and facilitated the medical decision making. Documented By: Henry Clark MD 12/24/23 0955 Signed By: <Electronically signed by Henry Clark MD> 12/24/23 [facility]9 [facility] Work Phone: 1(782) 377-893307-09-2024 Consult note Author Elver Cifuentes [facility] December 22, 2023 2:35pmNote Date/TimeJuly 2023 9:25[place] [address] Physiatry (Rehab) Consult Note Signed Patient: Fani Chua MR#: [id number] : 1935 Acct:[id number] Age/Sex: 88 / M Adm Date: 4 Loc: 4N Room: [address] [place] [address] Type: ADM INOo Attending Dr: Ashley Merrtit MD Copies to: MD María Agarwal MD [...] from the hospital on 12/19 who [facility] to severe pain and inability [...] negative unless noted below or in HPI [facility] Medical History Patella fracture right.12/20/23 Hyperlipidemia Emphysema [...] Verified 12/21/23 20:12) Rash bacitracin [From Neosporin (kpq-ymn-fggmb)] Allergy (Unknown, Verified 12/21/23 20:12) itch and rash, rash neomycin [From Neosporin (nfd-whj-nzkli)] Allergy (Unknown, Verified 12/21/23 20:12) itch and rash, rash Penicillins Allergy (Unknown, Verified 12/21/23 20:12) Anaphylaxis polymyxin B [From Neosporin (kio-aph-wvtgi)] Allergy (Unknown, Verified 12/21/2419:12) Rash and itch, [...] chart, including current orders, allied health and admissions consultant notes, labs/imaging and performed orellana elements of exam and I formulated the plan of care and facilitated the medical decision making. I completed a substantive portion of this encounter, the medical decision makingportion of this note in its entirety, including Allied health note review, nursing note review, admissions consultant note review,discussion with nursing and case management, and more than 50% of my time was spent on counseling and coordination of care, time spent 60 minutes Documented By: Elver Cifuentes MD 09 Signed By: <Electronically signed by Elver Cifuentes MD> 12/22/[address] [place] [address] Work Phone: 1(296) 379-467207-09-2024 Consult note Author Roly Morales [facility] December 22, 2023 11:35amNote Date/TimeJuly 2023 10:55[place] [address] Orthopedic Consult Note Signed Patient: Fani Chua MR#: [id number] : 1935 Acct:[id number] Age/Sex: 88 / M Adm Date: 4 Loc: 4N Room: [address] [place] [address] Type: ADM INOo Attending Dr: Ashley Merritt [...] He does admit to rightknee pain. He hassignificant underlying knee degenerative changes. He is planning for admission to inpatient rehab. [facility] Medical History Patella fracture right.12/20/23 Hyperlipidemia Emphysema [...] Verified 12/21/23 20:12) Rash bacitracin [From Neosporin (ock-wum-bvgbo)] Allergy (Unknown, Verified 12/21/23 20:12) itch and rash, rash neomycin [From Neosporin (byw-ogp-xchfe)] Allergy (Unknown, Verified 12/21/23 20:12) itch and rash, rash Penicillins Allergy (Unknown, Verified 12/21/23 20:12) Anaphylaxis polymyxin B [From Neosporin (tww-bwb-bdpmi)] Allergy (Unknown, Verified 12/21/2419:12) Rash and itch, [...] % (Auto) 69.1, Lymph % (Auto) 15.0, Kemper % (Auto) 14.6, Eos % (Auto) 0.8, Baso % (Auto) 0.5, Nucleat RBC Rel Count 0.1, Neut # (Auto)6.2, Lymph # (Auto) 1.4, Kemper # (Auto) 1.3 H, Eos # (Auto) 0.1, Baso # (Auto) 0.0, PHA Creatinine Clear 58.48, Sodium 137, Potassium 3.8, Chloride 102, Carbon Dioxide 26.6, Anion Gap 12.2, BUN 25, Creatinine 0.89, Est GFR (CKD-EPI) > 60.0, [id number] H, Calcium 9.1 12/22/23 06:56: PT 16.3 H, INR 1.4 H & H 12/22/23 Range/Units 09:52 Hgb 13.6 (13.0-17.0) g/dL Hct 41.3 (38.8-50.0) % Coagulation 12/22/23 Range/Units 06:56 INR 1.4 All other labs are normal. Imaging & Diagnostic Results Imaging/Diagnostics: X-rays and CT scan of the right knee are reviewed. Advanced degenerative changes are seen. He has acomminuted patella fracture which is nondisplaced. Effusion is [...] personally reviewed appropriate imaging and performed interpretation ofrelated testing and examination with thepatient in office [...] as tolerated while knee is in knee i mmobilizer. Ifhe does not tolerate knee immobilizer that [...] tolerated. We will plan to startgentle range ofmotion in the next 2 to 3 weeks. We will plan for follow- up for follow-up x-rays in 2 to 3 weeks before starting motion. Okay for discharge from inpatient rehab The patient has been involved in our cooperative treatment plan and agrees to move forward with treatment at this time. Documented By: Roly Morales DO 12/22/23 1054 Signed By: <Electronically signed by Roly Morales DO> 12/22/23 3323 [facility] Work Phone: 1(878) 579-583007-09-2024 Progress note Author Ashley Merritt [facility] December 22, 2023 9:37amNote Date/TimeJuly 2023 9:37[place] [address] Hospitalist Progress Note Signed Patient: Fani Chua MR#: [id number] : 1935 Acct:[id number] Age/Sex: 88 / M Adm Date: 4 Loc: 4N Room: [address] [place] [address] Type: ADM INOo Attending Dr: Ashley Merritt [...] Verified 12/21/23 20:12) Rash bacitracin [From Neosporin (umc-ljd-biaou)] Allergy (Unknown, Verified 12/21/23 20:12) itch and rash, rash neomycin [From Neosporin (zok-vlk-yvsoq)] Allergy (Unknown, Verified 12/21/23 20:12) itch and rash, rash Penicillins Allergy (Unknown, Verified 12/21/23 20:12) Anaphylaxis polymyxin B [From Neosporin (hos-ruk-xsxnd)] Allergy (Unknown, Verified 12/21/2419:12) Rash and itch, [...] right patella fracture, status post recentdischarge with painmanagement, however failed outpatient care, complaining of severe pain, unable to function at home Patient is on Coumadin therapy due to atrial fibrillation, with subtherapeutic INR Previous x-ray showed effusions, will repeat x-ray Consult Ortho Continue with pain medication, add Dilaudid IV Consulted PT OT Documented By: Ashley Merritt MD 12/22/23934 Signed By: <Electronically signed by Ashley Merritt MD> 12/22/23 0937 [facility] Work Phone: 1(430) 193-754407-09-2024 History and physical note Author Hilario Skelton [facility] December 22, 2023 3:27amNote Date/TimeJuly 2023 11:52[place] [address] Hospitalist H&P Signed Patient: Fani Chua MR#: [id number] : 1935 Acct:[id number] Age/Sex: 88 / M Adm Date: 4 Loc: 4N Room: [address] [place] [address] Type: ADM INOo Attending Dr: Hilario Skelton MD Copies to: MD Kaitylnn Lorenzana, POLICE CHIEF DEPUTY María Anderson MD~ HPI DATE OF EXAMINATION: 12/21/23 [...] of care and confirmed it with the re sident/student/BACTERIOLOGIST DAIRY. Patient is an 88-year-old male, who was [...] to do anything since he got home. Hestates that the swelling has gone down but [...] unless noted in the HPI or below. [facility] Medical History Patella fracture right.12/20/23 Hyperlipidemia Emphysema [...] Verified 12/21/23 20:12) Rash bacitracin [From Neosporin (crs-gwe-xuydb)] Allergy (Unknown, Verified 12/21/23 20:12) itch and rash, rash neomycin [From Neosporin (uyu-yxu-tdize)] Allergy (Unknown, Verified 12/21/23 20:12) itch and rash, rash Penicillins Allergy (Unknown, Verified 12/21/23 20:12) Anaphylaxis polymyxin B [From Neosporin (vei-uud-pgytt)] Allergy (Unknown, Verified 12/21/2419:12) Rash and itch, [...] 1 Documented By: Kaitlynn Lewis APRN 12/21/23 6490 Signed By: <Electronically signed by BENJI Lewis> 12/22/23 0313 <Electronically signed by Hilario Skelton MD> 12/22/23 0327 [facility] Work Phone: 1(404) 521-762107-07-2024 History and physical note Author Isai May [facility] December 20, 2023 7:23amNote Date/TimeJuly 2023 4:54am[place] [address] Hospitalist H&P Signed Patient: Fani Chua MR#: [id number] : 1935 Acct:[id number] Age/Sex: 88 / M Adm Date: 4 Loc: 4 Room: 0O4212-1 Type: ADM INOo Attending Dr: Betty Buchanan MD Copies to: MD Isai Owen, DO María Anderson MD~ HPI DATE OF EXAMINATION: 12/20/23 CHIEF COMPLAINT: Fall HISTORY OF PRESENT ILLNESS: This patient is a very pleasant 88-year-old male who presented to the emergency department this evening following a mechanical fall with subsequent polytrauma. He had no preceding symptoms leading tothis fall and states he caught his foot on a step that he did not see. He has some suprapatellar swelling more so on the right side and superficial lacerations/excoriations of his bilateral knees. Lar ge hematoma raised on the left forehead as [...] head and C-spine as well as chest abdomenand pelvis. X-ray of the right knee does [...] surgery regarding his patellar injury. Knee CT obtainedlater this morning does confirm transverse and obliquefractures of the patella along with joint effusion. Symptomatic management for now. [facility] Medical History Hyperlipidemia Emphysema lung Arthritis Macular [...] Diabetes Daughter Bipolar 1 disorder Brother [facility] Relation: Brother(s) COPD (chronic obstructive pulmonary disease) [facility] Relation: Brother(s) Father 37 yrs Heart disease Mother Heart disease 67 yrs Sibling Cancer [facility] Problem: Diagnosed with Cancer Social History Smoking Status: Never smoker Tobacco Type: cigarettes Substance Use Type: Alcohol Substance Abuse Comment: drinks a beer nightly Meds Medications and Allergies Allergies amoxicillin Allergy (Severe, Verified 12/20/23 00:50) Swelling of Lip/Tongue/Throat adhesive Allergy (Unknown, Verified 12/20/23 00:50) Rash bacitracin [From Neosporin (rxa-spd-ogroo)] Allergy (Unknown, Verified 12/20/23 00:50) itch and rash, rash neomycin [From Neosporin (iqh-qug-uqsex)] Allergy (Unknown, Verified 12/20/23 00:50) itch and rash, rash Penicillins Allergy (Unknown, Verified 12/20/23 00:50) Anaphylaxis polymyxin B [From Neosporin (onc-bdq-qmzho)] Allergy (Unknown, Verified 12/20/2399:50) Rash and itch, [...] 02:25 Lymph % (Auto) N/A 12/20/23 02:25 [place] % (Auto) N/A 12/20/23 02:25 Eos % (Auto) N/A 12/20/23 02:25 Baso % (Auto) N/A 12/20/23 02:25 Nucleat RBC Rel Count N/A 12/20/23 02:25 Neut # (Auto) N/A 12/20/23 02:25 Lymph # (Auto) N/A 12/20/23 02:25 [place] # (Auto) N/A 12/20/23 02:25 Eos # [...] pH 5.0 (5.0-9.0) 12/20/23 02:55 Ur Specific [place] 1.019 (1.001-1.030) 12/20/23 02:55 Urine Protein Trace [...] signed by Isai May DO> 12/20/23 0723 [facility] Work Phone: 1([phone]) 269-836904-16-2024 History of Present illness Narrative* Bonita Kingsley [...] with moderate pulmonary hypertension. He was in [place] couple weeksback and had a fall after [...] aortic stenosis status post TAVR 2019 at [facility]. Follow-up echocardiogram February 2023 revealed normal valve [...] mg) by mouth. Take as directed by [facility], Disp: , Rfl: Assessment/Plan 1. Nonrheumatic aortic valve stenosis 2. Presence of prosthetic heart valve 3. Status post transcatheter aortic valve replacement 4. Permanent atrial fibrillation (Multi) 5. Coronary artery disease, unspecified vessel or lesion type, unspecified whether angina present, unspecified whether red devil or transplanted heart 6. Congestive heart failure, NYHA class 2, unspecified congestive heart failure type (Multi) 7. Pulmonary hypertension (Multi) 8. Hypertension, unspecified type 9. Pure hypercholesterolemia 10. PVD (peripheral vascular disease) ([facility]) 11. Type 2 diabetes mellitus without complication, unspecified whether exterminator helper insulin use (Multi) 12. Stage 2 chronic [...] exam, discussion and plan. [facility] Work Phone: 1(194) 572-664604-16-2024 Instructions* Patient Instructions* Gricelda Sena LPN - [...] 6 months Sept [facility] Work Phone: 1(880) 245-274012-23-2023 Consult note Author Tyrese Gutierrez [facility] June 06, 2023 1:21pmNote Date/TimeDecember 2022 1:10pmSaint [place] [address] Cardiology Consult Note Signed Patient: Fani Chua MR#: [id number] : 1935 Acct:[id number] Age/Sex: 88 / M Adm Date: 3 Loc: 4 Room: [address] [place] [address] Type: ADM IN Attending Dr: Isai May [...] showed no acute intracranial abnormalities. ECG showed atrialfibrillation with a chronic bundle branch block and occasionalPVCs. No acute ischemic changes were noted. Initial troponin was mildly elevated at 79. Serial troponins have remained essentially flat with a peak at 98 and troponin this morning down to 55. Patient denies any chest pain chest pressure o r other anginal symptoms. Telemetry monitoring has shown [...] negative unless noted below or in HPI [facility] Medical History (Updated 06/06/23 @ 13:20 by [...] 15:15) Swelling of Lip/Tongue/Throat bacitracin [From Neosporin (hnq-zmg-zbucm)] Allergy (Verified 06/04/23 15:15) itch and rash neomycin [From Neosporin (okj-kty-regmb)] Allergy (Verified 06/04/23 15:15) itch and rash polymyxin B [From Neosporin (avt-jws-bwpnt)] Allergy (Verified 06/04/23 15:15) Rash and itch [...] nonspecific abnormality, ST segment, and/or T wave TN, pacemaker, normal Normal tracing: no change compared [...] syndrome. This may have had it source onor around the patient's TAVR prosthesis. No evidence [...] of antiplatelet therapy this could have been thesource for platelet clumping with resultant TIA. Plan: Provided the patient is having no problems with bleeding would recommend aspirin 81 mg daily and adjustment of warfarin anticoagulation to a lower target INR of 2-2.5 rather than 2-3. Code(s): Z95.2 - Presence of prosthetic heart valve Plan Patient appears clinically safe and stable for discharge to home today. Recommend follow-up with his primary oil filters inspector Dr. George within 3 weeks. Thank you very much for this kind consultation and for allowing me to participate in the care of this delightful patient. Documented By: Tyrese Gutierrez MD 06/06/23 1308 Signed By: <Electronically signed by Tyrese Gutierrez MD> 06/06/23 1324 [facility] Work Phone: 1([phone]) 840-238912-22-2023 Progress note Author Isai May [facility] June 05, 2023 6:38pmNote Date/TimeDecemb2022 6:39pm[place] [address] Hospitalist Progress Note Signed Patient: Fani Chua MR#: [id number] : 1935 Acct:[id number] Age/Sex: 88 / M Adm Date: 3 Loc: 4N Room: [address] [place] [address] Type: ADM IN Attending Dr: Isai May DO Copies to: ~ Date of Service: 06/05/2023 Subjective Subjective Narrative: Patient was seen and examined the bedside this afternoon. Neurologic symptoms have completely resolved. His vitals are fairly stable. He continues to deny any chest pain, palpitations or shortness ofbreath. His family is now at the bedside [...] 15:15) Swelling of Lip/Tongue/Throat bacitracin [From Neosporin (oky-ren-uevsv)] Allergy (Verified 06/04/23 15:15) itch and rash neomycin [From Neosporin (bem-nbq-otbei)] Allergy (Verified 06/04/23 15:15) itch and rash polymyxin B [From Neosporin (xlc-ejh-wwnyf)] Allergy (Verified 06/04/23 15:15) Rash and itch [...] <Electronically signed by Isai May DO> 06/05/23 5348 [facility] Work Phone: 1([phone]) 440-543512-22-2023 Consult note Author Buck Glover [facility] June 05, 2023 3:26pmNote Date/TimeDecember 2022 3:26pmSaint [place] [address] Neurology Consult Note Signed Patient: Fani Chua MR#: [id number] : 1935 Acct:[id number] Age/Sex: 88 / M Adm Date: 3 Loc: 4N Room: [address] [place] [address] Type: ADM IN Attending Dr: Isai May DO Copies to: DO Isai Doe DO Robert L Hill, MD~ HPI Consult Date: 06/05/23 Clean Up Helper Banquet: Buck Glover DO [facility] Medical History (Updated 06/04/23 @ 16:47 by [...] 15:15) Swelling of Lip/Tongue/Throat bacitracin [From Neosporin (qkl-lok-efwts)] Allergy (Verified 06/04/23 15:15) itch and rash neomycin [From Neosporin (hqd-acm-aoybj)] Allergy (Verified 06/04/23 15:15) itch and rash polymyxin B [From Neosporin (org-jvh-bqpnz)] Allergy (Verified 06/04/23 15:15) Rash and itch [...] Trey Murray M.D.06/04/2023 5:18 PM Dictation Location: [place] [address] 06/04/23 15:18 IMPRESSION: ATROPHY AND CHRONIC MICROVASCULAR CHANGES. NO DEFINITE ACUTE INTRACRANIAL ABNORMALITY. FOLLOW-UP IS RECOMMENDED, SYMPTOMS WARRANT. Comment: Findings were discussed with Dr. Wood at 1542 hours Impression dictated by: Cyn Llamas M.D.06/04/2023 3:44 PM Dictation Location: [place] [address] Head CTA 06/04/23 15:19 IMPRESSION: MILD ANEURYSMAL DILATATION OF THE ASCENDING AORTA. INTRA AND EXTRACRANIAL CAROTID ARTERY PLAQUE, WITHOUT HEMODYNAMICALLY SIGNIFICANT STENOSIS. Impression dictated by: Cyn Llamas M.D.06/04/2023 4:10 PM Dictation Location: [place] [address] Assessment/Plan (1) Blurred vision: Assessment/Problem Details: CONSULT [...] culprit lesion but does show widespread atherosclerotic changesas would be expected at his age. His [...] valve replacement, model number EVPROPLUS-34US, serial number [id number], implanted March 02, 2020. It is MR [...] signed by Buck Glover DO> 06/05/23 1526 [facility] Work Phone: 1(616) 376-679912-22-2023 History and physical note Author Isai May [facility] June 04, 2023 10:49pmNote Date/TimeDece2022 10:49pmSaint [place] [address] Hospitalist H&P Signed Patient: Fani Chua MR#: [id number] : 1935 Acct:[id number] Age/Sex: 88 / M Adm Date: 3 Loc: 4N Room: [address] [place] [address] Type: ADM INOo Attending Dr: Isai May [...] since the onset. He does not describe anyvisual field deficits. Denies any oral or headaches. [...] separate spots. Does not describe double vision consistentlyhowever. During my conversation with the patient he states I become increasingly blurry as time goes on. When I moved to a different side of the room he is able to focus again and I am much clear. Hereports some generalized problems with balance as well with this and states he would absolutely notdrive a car at the moment. Ambulation has become a bit more problematic and he would do this with caution. His workup in the ER showed stable vital signs with no hypertension. Unremarkable CBC showing only mild anemia. Chemistries are unremarkable. He does exhibit some slight troponin elevation but deniesany chest pain or shortness of breath. He [...] BNP elevation Patient has been seen by [facility] in the past for A-fib however these ongoing cardiac issues do not appear to be symptomatic. His troponin and BNP elevation are mild and potentially chronic. Echocardiogram to rule out cardiac thrombus certainly is warranted for his neurologic evaluation butmay shed lighton this further. Low suspicion for ACS or acute CHF at the moment. He does follow with [facility]. With his presenting normotension and lack of other focal deficits I do not actually suspect stroke but certainly further neurologic workup is warranted. Neurology will be consulted. Will check lipid panel, A1c and an echocardiogram. CT angiography of head and neck as well as noncontrast head CT show nothing acute to explain his symptoms. His visual disturbance appears to worsenwith ongoing focus on a given object and to me raises concern for myasthenia gravis. The type of MRI imaging I will leave to neurology as simple noncontrast brain MRI may not suffice. Will provide asneeded meclizine for any recurrent vertiginous symptoms. Disposition: The patient's multiple neurologic symptoms as well as abnormal cardiac markers warrantextensive evaluation including echocardiogram and thorough neurologic workup and continuous monitoring of his symptoms. He will need safety evaluation in terms of his gait and potential for going home. Continuous telemetry monitoring and exacerbations of underlying cardiac disease need to be ruled out as well. Possible cardiology consult pending ongoing workup. He is thus admitted as an inpatientnow for stated that undoubtedly will surpass greater than 2 midnights Review of Systems Review of Systems All other systems reviewed & are negative unless noted below or in HPI [facility] Medical History (Updated 06/04/23 @ 16:47 by [...] 15:15) Swelling of Lip/Tongue/Throat bacitracin [From Neosporin (owj-pgz-aqigd)] Allergy (Verified 06/04/23 15:15) itch and rash neomycin [From Neosporin (isu-ldh-znvqe)] Allergy (Verified 06/04/23 15:15) itch and rash polymyxin B [From Neosporin (pqi-wpx-nvhdw)] Allergy (Verified 06/04/23 15:15) Rash and itch [...] % (Auto) 23.0 % (.) 06/04/23 15:22 Kem[place] % (Auto) 11.2 % (.) 06/04/23 15:22 Eos % (Auto) 1.6 % (.) 06/04/23 15:22 Baso % (Auto) 0.9 % (.) 06/04/23 15:22 Nucleat RBC Rel Count 0.1 /100 WBC (0-0.5) 06/04/23 15:22 Neut # (Auto) 4.4 x10E3/uL (1.8-7.7) 06/04/23 15:22 Lymph # (Auto) 1.6 x10E3/uL (1.00-4.8) 06/04/23 15:22 [place] # (Auto) 0.8 x10E3/uL (0.0-0.8) 06/04/23 15:22 [...] pH 5.0 (5.0-9.0) 06/04/23 17:00 Ur Specific [place] 1.038 (1.001-1.030) H 06/04/23 17:00 Urine Protein [...] setting as: INPATIENT because of an expectation ofan over 2 midnight stay. Estimated length of stay (# of days): 3 Documented By: Isai May DO 06/04/23 22 35 Signed By: <Electronically signed by Isai May DO> 06/04/23 2243 [facility] Work Phone: 1([phone]) 376-563910-19-2023 Progress note Author Marisela Shaffer [facility] April 02, 2023 12:55pmNote Date/TimeOctober 2022 12:55pm[place] [address] Wound Center Provider Note Signed Patient: Fani Chua MR#: [id number] : 1935 Acct:[id number] Age/Sex: 87 / M Copies to: MD Marisela Jansen, POLICE CHIEF DEPUTY~ HPI Date of Visit Date of Visit: Date of Service: 04/02/2023 Time of Service: 12:54 Narrative HPI: 02/26/23 Te is an 87 year old male presenting to [facility] wound care program for an [...] and visits, is taking antibiotics per his absorption plant operator forsomething not related to the wounds we are treating 03/23/23 better, same orders for the leg, the hand was switched to steroid for some irritation, willreturn later this week for dressing change 04/02/23 better, topical gent started, 2 week appt Subjective Pain Left Lower Leg: Pain Description: Intermittent Pain Intensity: 0 Pain Management Techniques Other/Comment: Only hurts when touched Wound/Ulcer History When did wound start?: Early January Mode of Arrival/ Program Services Planner: Personal vehicle Lives with:: Spouse Appetite Description: Within Normal Limits Who helps w/ dressing change?: Self Smoking Status: Former smoker [facility] Medical History (Updated 03/23/23 @ 15:05 by [...] 10:30) Swelling of Lip/Tongue/Throat bacitracin [From Neosporin (amb-att-vqsma)] Allergy (Verified 02/26/23 10:30) itch and rash neomycin [From Neosporin (jzy-lwi-emjip)] Allergy (Verified 02/26/23 10:30) itch and rash polymyxin B [From Neosporin (wuo-ilz-rbosr)] Allergy (Verified 02/26/23 10:30) Rash and itch Wound/Ulcer Left Lower Leg: Type: Traumatic Thickness: Full Bed Appearance: Beefy Red, Epithelial Tissue or Bridge, [place] and Yellow Percent of Wound Bed Granulated/Red: [...] 11 Dictated By: Marisela Shaffer APRN DD/ 1254 Signed By: <Electronically signed by BENJI Shaffer> 04/02/23 1255 [facility] Work Phone: 1([phone]) 152-484210-16-2023 Evaluation note* Encounter Date Diagnosis Assessment Notes Treatment Notes Treatment Clinical Notes Mar, 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) [place] [employer] Other 10-09-2023 Progress note Author Marisela Shaffer [facility] March 23, 2023 3:05pmNote Date/TimeOct2022 3:05pmSaint [place] [address] Wound Center Provider Note Signed Patient: Fani Chua MR#: [id number] : 1935 Acct:[id number] Age/Sex: 87 / M Copies to: MD Marisela Jansen APRN~ HPI Date of Visit Date of Visit: Date of Service: 03/23/2023 Time of Service: 15:03 Narrative HPI: 02/26/23 Te is an 87 year old male presenting to [facility] wound care program for an [...] and visits, is taking antibiotics per his absorption plant operator forsomething not related to the wounds we are treating 03/23/23 better, same orders for the leg, the hand was switched to steroid for some irritation, willreturn later this week for dressing change Subjective Pain Left Lower Leg: Pain Description: Intermittent and Soreness Pain Intensity: 0 Pain Management Techniques Other/Comment: Only hurts when touched Left Hand: Pain Description: Intermittent Pain Intensity: 0 Wound/Ulcer History When did wound start?: Early January Mode of Arrival/ Program Services Planner: Personal vehicle Lives with:: Spouse Appetite Description: Within Normal Limits Who helps w/ dressing change?: Self Smoking Status: Former smoker [facility] Medical History (Updated 03/23/23 @ 15:05 by [...] 10:30) Swelling of Lip/Tongue/Throat bacitracin [From Neosporin (vlv-jot-jxkws)] Allergy (Verified 02/26/23 10:30) itch and rash neomycin [From Neosporin (xpc-poe-eqskj)] Allergy (Verified 02/26/23 10:30) itch and rash polymyxin B [From Neosporin (pnn-vfw-vuowi)] Allergy (Verified 02/26/23 10:30) Rash and itch Wound/Ulcer Left Lower Leg: Type: Traumatic Thickness: Full Bed Appearance: Beefy Red, Epithelial Tissue or Bridge, [place] and Yellow Percent of Wound Bed Granulated/Red: 90 Percent of Devitalized: 10 Length (cm): 16.0 Width (cm): 4.5 Depth (cm): 0.1 CM Sq: 72.000 Surrounding Tissue Appearance: Hyperpigmented Surrounding Tissue Temp: Warm Drainage Amount: Moderate Drainage Description: Serosanguineous Drainage Odor: No Odor Left Hand: Type: Traumatic Thickness: Full Bed Appearance: [place] Percent of Wound Bed Granulated/Red: 100 Percent [...] <Electronically signed by BENJI Shaffer> 03/23/23 1505 [facility] Work Phone: 1(274) 457-950210-02-2023 Progress note Author Marisela Shaffer [facility] March 16, 2023 2:26pmNote Date/TimeOct2022 2:26pm[place] [address] Wound Center Provider Note Signed Patient: Fani Chua MR#: [id number] : 1935 Acct:[id number] Age/Sex: 87 / M Copies to: MD Marisela Jansen APRN~ HPI Date of Visit Date of Visit: Date of Service: 03/16/2023 Time of Service: 14:24 Narrative HPI: 02/26/23 Te is an 87 year old male presenting to [facility] wound care program for an [...] and visits, is taking antibiotics per his absorption plant operator forsomething not related to the wounds we are treating Subjective Pain Left Lower Leg: Pain Description: Intermittent and Soreness Pain Intensity: 0 Pain Management Techniques Other/Comment: Only hurts when touched Left Hand: Pain Description: Intermittent and Soreness Pain Intensity: 1 Wound/Ulcer History When did wound start?: Early January Mode of Arrival/ Program Services Planner: Personal vehicle Lives with:: Spouse Appetite Description: Within Normal Limits Who helps w/ dressing change?: Self Smoking Status: Former smoker [facility] Medical History (Updated 03/05/23 @ 13:46 by [...] 10:30) Swelling of Lip/Tongue/Throat bacitracin [From Neosporin (mgd-naa-formk)] Allergy (Verified 02/26/23 10:30) itch and rash neomycin [From Neosporin (zva-emb-kmzun)] Allergy (Verified 02/26/23 10:30) itch and rash polymyxin B [From Neosporin (kkz-xbl-sylel)] Allergy (Verified 02/26/23 10:30) Rash and itch Wound/Ulcer Left Lower Leg: Type: Traumatic Thickness: Full Bed Appearance: Beefy Red, Epithelial Tissue or Bridge, [place] and Yellow Percent of Wound Bed Granulated/Red: 75 Percent of Devitalized: 25 Length (cm): 18 Width (cm): 6 Depth (cm): 0.1 CM Sq: 108.000 Surrounding Tissue Appearance: Hyperpigmented Surrounding Tissue Temp: Warm Drainage Amount: Moderate Drainage Description: Serosanguineous Drainage Odor: No Odor Left Hand: Type: Traumatic Thickness: Full Bed Appearance: Beefy Red, [place] and Yellow Percent of Wound Bed Granulated/Red: [...] With Patient (min): 10 Dictated By: Marisela Shafefr APRN DD/ 23 Signed By: <Electronically signed by BENJI Shaffer> 03/16/23 [facility] Work Phone: 1(192) 494-799709-21-2023 Progress note Author Marisela Shaffer [facility] March 05, 2023 1:47pmNote Date/TimeSept2022 1:47pm[place] [address] Wound Center Provider Note Signed Patient: Fani Chua MR#: [id number] : 1935 Acct:[id number] Age/Sex: 87 / M Copies to: MD Marisela Jansen APRN~ HPI Date of Visit Date of Visit: Date of Service: 03/05/2023 Time of Service: 13:44 Narrative HPI: 02/26/23 Te is an 87 year old male presenting to [facility] wound care program for an [...] wound start?: Early January Mode of Arrival/ Program Services Planner: Personal vehicle Lives with:: Spouse Appetite Description: Within Normal Limits Who helps w/ dressing change?: Self Smoking Status: Former smoker [facility] Medical History (Updated 03/05/23 @ 13:46 by [...] 10:30) Swelling of Lip/Tongue/Throat bacitracin [From Neosporin (hyr-ilu-ziypj)] Allergy (Verified 02/26/23 10:30) itch and rash neomycin [From Neosporin (jzq-lwy-fvbzj)] Allergy (Verified 02/26/23 10:30) itch and rash polymyxin B [From Neosporin (thl-pdl-nqoit)] Allergy (Verified 02/26/23 10:30) Rash and itch Wound/Ulcer Left Lower Leg: Type: Traumatic Thickness: Full Bed Appearance: Beefy Red, Epithelial Tissue or Bridge, [place] and Yellow Percent of Wound Bed Granulated/Red: 95 Percent of Devitalized: 5 Length (cm): 20 Width (cm): 16 Depth (cm): 0.1 CM Sq: 320.000 Surrounding Tissue Appearance: Hyperpigmented Surrounding Tissue Temp: Warm Drainage Amount: Moderate Drainage Description: Serosanguineous Drainage Odor: No Odor Left Hand: Type: Traumatic Thickness: Full Bed Appearance: Beefy Red, Epithelial Tissue or Bridge, [place] and Yellow Percent of Wound Bed Granulated/Red: [...] <Electronically signed by BENJI Shaffer> 03/05/23 1347 [facility] Work Phone: 1(427) 539-626009-14-2023 Progress note Author Marisela Shaffer [facility] February 26, 2023 10:41amNote Date/TimeSeptember 2022 10:39[place] [address] Wound Center Provider Note Signed Patient: Fani Chua MR#: [id number] : 1935 Acct:[id number] Age/Sex: 87 / M Copies to: MD Marisela Jansen APRN~ HPI Date of Visit Date of Visit: Date of Service: 02/26/2023 Time of Service: 10:37 Narrative HPI: 02/26/23 Te is an 87 year old male presenting to [facility] wound care program for an [...] wound start?: Early January Mode of Arrival/ Program Services Planner: Personal vehicle Lives with:: Spouse Appetite Description: Within Normal Limits Who helps w/ dressing change?: Self Smoking Status: Former smoker [facility] Medical History (Updated 02/26/23 @ 10:38 by [...] 10:30) Swelling of Lip/Tongue/Throat bacitracin [From Neosporin (ljj-jpf-yznjj)] Allergy (Verified 02/26/23 10:30) itch and rash neomycin [From Neosporin (aqo-hog-vuhsr)] Allergy (Verified 02/26/23 10:30) itch and rash polymyxin B [From Neosporin (ttt-bmf-nlcvq)] Allergy (Verified 02/26/23 10:30) Rash and itch Wound/Ulcer Left Lower Leg: Type: Traumatic Thickness: Full Bed Appearance: Beefy Red, [place] and Yellow Percent of Wound Bed Granulated/Red: [...] by BENJI Shaffer> 02/26/23 1041 [facility] Work Phone: 1(871) 590-920512-15-2022 Progress note Author Marisela Shaffer [facility] 2022 10:58amNote Date/TimeDecember 2021 10:58[place] [address] Wound Center Provider Note Signed Patient: Fani Chua MR#: [id number] : 1935 Acct:[id number] Age/Sex: 87 / M Copies to: Trey العلي,DO Marisela Shaffer APRN~ HPI Date of Visit Date of Visit: Date of Service: 2022 Time of Service: 10:55 Narrative HPI: 05/29/22 Te is an 87 year old male presenting to [facility] wound care program for an initial visitfor eval and treatment of a traumatic wound to the left lower leg. He has been using honey gel on the area with a nonstick telfa bandage. I see no signs of infection today but he did ask for Doxycycline since he is leaving for [place] in a couple weeks. He will use an antimicrobial cleanser and collagen powder/honey gel with a bandage. Healing will depend on the dressings being done as ordered aswell as having a well balanced diet. Subjective Pain Left Lower Leg: Pain Intensity: 0 Wound/Ulcer History When did wound start?: April2022 Mode of Arrival/ Program Services Planner: Personal vehicle Lives with:: Spouse Appetite Description: Within Normal Limits Who helps w/ dressing change?: Self Smoking Status: Former smoker [facility] Medical History (Updated 05/29/22 @ 10:58 by [...] 10:31) Swelling of Lip/Tongue/Throat bacitracin [From Neosporin (ias-lln-muyrp)] Allergy (Verified 03/19/22 10:31) itch and rash neomycin [From Neosporin (vcl-gzr-resug)] Allergy (Verified 03/19/22 10:31) itch and rash polymyxin B [From Neosporin (wqj-kxy-wxmii)] Allergy (Verified 03/19/22 10:31) Rash and itch Wound/Ulcer Left Lower Leg: Type: Traumatic Thickness: Partial Bed Appearance: Beefy Red, [place] and Yellow Percent of Wound Bed Granulated/Red: [...] by BENJI Shaffer> 05/29/22 1058 [facility] Work Phone: [phone]) 426-812712-08-2022 NoteCONSULTATION CONSULTATION DATE: 05/22/2022 HISTORY OF PRESENT [...] activity, his pain is 10/10. 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 [...] up and he agrees to move forward.[facility] [id number] NoteCONSULTATION CONSULTATION DATE: 04/24/2022 HISTORY OF PRESENT [...] in three months' time unless otherwise indicated.[facility] [id number] NoteCONSULTATION PROCEDURE DATE: 04/24/2022 PREOPERATIVE DIAGNOSIS: Bilateral [...] in the office in three months' time.[facility] [id number] NoteCONSULTATION CONSULTATION DATE: 03/25/2022 CHIEF COMPLAINT: Bilateral [...] patient understands and would like to proceed.[facility] [id number] Progress note Author Marisela Shaffer [facility] March 05, 2022 11:12amNote Date/TimeSeptember 2021 11:12[place] [address] Wound Center Provider Note Signed Patient: Fani Chua MR#: [id number] : 1935 Acct:[id number] Age/Sex: 86 / M Copies to: NO FAMILY PHYSICIAN Marisela Shaffer APRN~ HPI Date of Visit Date of Visit: Date of Service: 03/05/2022 Time of Service: 11:06 Narrative HPI: 02/04/22 Te is an 86 year old male presenting to [facility] wound care program for an [...] to the left leg from the vacuum kitchen cleaner, honey sheet to both areas, 2 [...] 2022 right, 02/18/22 Left Mode of Arrival/ Program Services Planner: Personal vehicle Lives with:: Spouse Appetite Description: [...] 10:50) Swelling of Lip/Tongue/Throat bacitracin [From Neosporin (dvw-eka-avboz)] Allergy (Verified 03/05/22 10:50) itch and rash neomycin [From Neosporin (ink-qee-ifqfl)] Allergy (Verified 03/05/22 10:50) itch and rash polymyxin B [From Neosporin (qkq-lyo-uybdk)] Allergy (Verified 03/05/22 10:50) Rash and itch [...] bleeding tissue. Estimated blood loss was minimal. Hemostasiswas achieved by applying pressure. The right leg [...] <Electronically signed by BENJI Shaffer> 03/05/22 1112 [facility] Work Phone: 1(369) 182-878309-07-2022 Progress note Author Marisela Shaffer [facility] February 19, 2022 10:32amNote Date/TimeSept2021 10:32amSaint [place] [address] Wound Center Provider Note Signed Patient: Fani Chua MR#: [id number] : 1935 Acct:[id number] Age/Sex: 86 / M Copies to: NO FAMILY PHYSICIAN Marisela Shaffer APRN~ HPI Date of Visit Date of Visit: Date of Service: 02/19/2022 Time of Service: 10:28 Narrative HPI: 02/04/22 Te is an 86 year old male presenting to [facility] wound care program for an [...] to the left leg from the vacuum kitchen cleaner, honey sheet to both areas, 2 week appt Subjective Pain Right Lower Medial Leg: Pain Description: Tender Pain Intensity: 0 Wound/Ulcer History When did wound start?: January 13, 2022 right, 02/18/22 Left Mode of Arrival/ Program Services Planner: Personal vehicle Lives with:: Spouse Appetite Description: [...] 09:28) Swelling of Lip/Tongue/Throat bacitracin [From Neosporin (eyt-xaf-ttoqt)] Allergy (Verified 02/04/22 09:28) itch and rash neomycin [From Neosporin (pol-exm-ywhlu)] Allergy (Verified 02/04/22 09:28) itch and rash polymyxin B [From Neosporin (key-flk-xmkna)] Allergy (Verified 02/04/22 09:28) Rash and itch Wound/Ulcer Right Lower Medial Leg: Type: Traumatic (laceration) Thickness: Full Bed Appearance: Beefy Red and [place] Percent of Wound Bed Granulated/Red: 100 Percent [...] 0.1 CM Sq: 2.340 Surrounding Tissue Appearance: [place] Surrounding Tissue Temp: Warm Drainage Amount: Small [...] <Electronically signed by BENJI Shaffer> 02/19/22 1032 [facility] Work Phone: 1(636) 703-856108-23-2022 Progress note Author Marisela Shaffer [facility] February 04, 2022 9:43amNote Date/TimeAugust 2021 9:43am[place] [address] Wound Center Provider Note Signed Patient: Fani Chua MR#: [id number] : 1935 Acct:[id number] Age/Sex: 86 / M Copies to: NO FAMILY PHYSICIAN Marisela Shaffer APRN~ HPI Date of Visit Date of Visit: Date of Service: 02/04/2022 Time of Service: 09:38 Narrative HPI: 02/04/22 Te is an 86 year old male presenting to [facility] wound care program for an [...] start?: January 13, 2022 Mode of Arrival/ Program Services Planner: Personal vehicle Lives with:: Spouse Appetite Description: [...] 09:28) Swelling of Lip/Tongue/Throat bacitracin [From Neosporin (bco-quf-vgblq)] Allergy (Verified 02/04/22 09:28) itch and rash neomycin [From Neosporin (jev-twk-rbldj)] Allergy (Verified 02/04/22 09:28) itch and rash polymyxin B [From Neosporin (zbe-hxu-mhjfu)] Allergy (Verified 02/04/22 09:28) Rash and itch Wound/Ulcer Right Lower Medial Leg: Type: Traumatic (laceration) Thickness: Full Bed Appearance: Beefy Red and [place] Percent of Wound Bed Granulated/Red: 100 Percent of Devitalized: 0 Length (cm): 0.5 Width (cm): 0.8 Depth (cm): 0.1 CM Sq: 0.400 Surrounding Tissue Appearance: Hyperpigmented Surrounding Tissue Temp: Warm Drainage Amount: Moderate Drainage Odor: No Odor Assessment/Plan Assessment/Plan (1) Traumatic wound: Assessment/Problem Details: rle Status: Acute Time spent with patient Time Spent With Patient (min): 15 Dictated By: Marisela Shaffer APRN DD/ Signed By: <Electronically signed by BENJI Shaffer> 02/04/22 0943 [facility] Work Phone: 1(135) 946-753707-19-2022 NoteCONSULTATION CONSULTATION DATE: 12/31/2021 HISTORY OF PRESENT [...] like to proceed. CC: Trey العلي [facility] Signed and Approved by: DR KRISTIN MCGUIRE . 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 At this point I thinkhis right hip replacement is doing very well. [...] seen sooner, or recommendations for spine surgeon. 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 At thistime I think that he has some soft [...] work with them until he goes to [place] for the winter. While in [place] he will do his own home physical therapy. In the meantime he will also start taking Tylenol as needed for any discomfort. Due to his warfarin use for his A. fib we are unable to prescribe pain any oral anti- inflammatories to help with any soft tissue swelling in the left thigh. Plan to see him back sometime in September when he returns from [place]. 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 Continue physical therapy exercises and GUERITA precautions. Instructed patient to call with any questions or concerns. 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 [facility] [place] [employer] [place] Work Phone: Chief complaint Narrative - Reported* FANI CHUA is being seen for a cardiovascular evaluation . 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 * A telephone visit (audio only) between the patient (at the originating site) and the provider (at the distant site) was utilized to provide this telehealth service. [facility] [address] [place] Work Phone: Discharge summary Author Isai May [facility] June 06, 2023 4:21pmNote Date/TimeDecemb2022 3:57pmTimothy Ville [id number] Discharge Summary Signed Patient: Fani Chua MR#: [id number] : 1935 Acct:[id number] Age/Sex: 88 / M Adm Date: 3 Loc: Room: [address] [place] [address]: Isai May DO Copies to: Bonita Kingsley MD, [facility] DO María Harmon MD~ Providers Date of [...] more so a generalized blurriness within the lowervisual arceo. Described accompanying vertiginous symptoms as well. [...] noted on presentation with systolic blood pressure holdingin the 140s at its highest. His Coumadin [...] thus prompted a cardiology consult prior to discharge.He had a fair degree of ectopy burden on telemetry but again remained rate controlled and asymptomatic for his chronic A-fib. 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 Low magnesium was repleted. High intensity statin [...] temporary basis with monitoring for bleeding however Iwill defer this decision to his PCP going [...] [id number] Location: Determined by Patient Ordered By: Isia May Follow Up: [facility] [Outside] (Call office on Thursday to schedule follow-up with Neurology. ) Bonita Kingsley MD [Active Staff] - (Call office on Thursday to schedule follow-up with Cardiology in3 weeks. ) María Anderson MD [Primary Care Provider] - 06/16/23 1:30 pm (Follow-up with your Primary Care Provider, call office to reschedule if needed. ) Documented By: Isai May DO 06/06/23 15 53 Signed By: <Electronically signed by Isai May, > 06/06/23 1621 [facility] Work Phone: Discharge summary Author Ashley Merritt [facility] December 23, 2023 1:04pmNote Date/TimeJuly 2023 1:04pmTimothy Ville [id number] Discharge Summary Signed Patient: Fani Chua MR#: [id number] : 1935 Acct:[id number] Age/Sex: 88 / M Adm Date: 4 Loc: 4N Room: [address] [place] [address]: Ashley Merritt MD Copies to: MD Ashley Jansen MD~ Providers Date of Discharge: 12/23/23 Discharging Provider: Ashley Merritt Primary Care Provider: María Anderson Consults: 12/21/23 20:53 Consult to Case Management Routine Comment: CM Reason for Consult: Actuarial Intern-General Consult to Occupational Therapy Routine Comment: Physician [...] fibrillation. Repeated x-ray showed knee effusions with s table patella fracture. He did not have any other neurovascular dysfunction. Patient pain was better controlled with opioid medications. Orthopedic was consulted and patient underwent arthrocentesis draining 75 cc of bloody drainage. Recommended brace. He was eval to by PT OT and discharged to rehab ilitation for further care. As noted above patient [...] recommendations were made to follow-up as outpatient withinone week.The patient was informed if his symptoms get worse to go back to emergency room or call his primary care physician office. Time Spent with Patient Time spent providing/coordinating discharge services (# min): 25 Discharge Plan Discharge Plan Patient [place] [facility] Activity: No Activity Restriction Diet: Regular Additional Instructions: Rehab to manage -Full code -Ortho assessment per routine: R Patella fx -Knee immobilizer or hinge brace with ambulation -Ortho rec's: Orthopedic surgery discharge instructions Continue all precautions from the hospital. Your knee should remain in the brace for any immobilization. Any weightbearing activities. Knee must be fullyextended and in brace. Continue medications asprescribed at hospital. Continue therapy exercises as instructed. You should also maintain appropriate protein intake and I do recommend a supplement, such as a boost shake, daily which can help with your healing. Your follow-up should be scheduled in Dr. Morales's office for 3 weeks for x-rays and to start outpatient therapy. Call office with any questions or concerns. Dr. Roly Morales [facility] [address] [place] [address] Incentive spirometry every hour while awake Prescriptions: [...] signed by Ashley Merritt MD> 12/23/23 1304 [facility] Work Phone: Discharge summary Author Bright Lopez [facility] February 27, 2024 5:08pmNote Date/TimeSept2023 5:08pmSaint [place] [address] Discharge Summary Signed Patient: Fani Chua MR#: [id number] : 1935 Acct:[id number] Age/Sex: 88 / M Adm Date: 4 Loc: Room: [address] [place] [address]: Bright Lopez MD Copies to: [...] and bladder cancer who presents to the emergencydepartment with intermittent episodes of disequilibrium and fall. [...] low and thus he received IM B12 shot.Otherwise, patient was feeling well. Given his lack of neurologic symptoms, he was recommended for further vestibular PT as an outpatient. He was given vestibular exercises for discharge and told to follow- up with his primary care physician. Time Spent [...] % (Auto) 58.6, Lymph % (Auto) 22.7, Kemper % (Auto) 16.3, Eos % (Auto) 1.4, Baso % (Auto) 1.0, Nucleat RBC Rel Count 0.0, Neut # (Auto) 2.4, Lymph # (Auto) 0.9 L, Kemper # (Auto) 0.7, Eos # (Auto) 0.1, Baso # (Auto) 0.0, PT 20.5 H,INR1.8, APTT 39.2 H, PHA Creatinine Clear 65.05, [...] 130 L, LDL Cholesterol, Calc 48, VLDL Capsjzkpcgz81, HDL Cholesterol 70, Cholesterol/HDL Ratio 1.9, Vitamin B12 390, 25-OH Vitamin D Total 29.3 L, Folate 16.9, TSH 3rd Generation 1.76 Documented By: Bright Lopez MD 4 1700 Signed By: <Electronically signed by Bright Lopez MD> 02/27/24 1708 [facility] Work Phone: Evaluation note* Diagnosis Onset Date Resolution Status Traumatic wound acute [facility] Work Phone: Evaluation note* Diagnosis Onset Date Resolution Status Traumatic wound acuteAt high risk for altered skin integritychronicSkin tear of left lower leg without complicationchronicThinning of skinchronic [facility] Work Phone: Evaluation note* Diagnosis Onset Date Resolution Status Skin tear of left lower leg without comp lication acuteAt high risk for altered skin integritychronicThinning of skinchronic [facility] Work Phone: Evaluation noteNo assessment information available [facility] Work Phone: Evaluation note* Diagnosis Onset Date Resolution Status At high risk for altered skin integrity chronicInflammationchronicPainchronicThinning of skinchronicTraumatic wound chronic [facility] Work Phone: Evaluation note* Diagnosis 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 Heart valve replaced by other means documented in this encounter [facility] Work Phone: Evaluation note* Diagnosis Onset Date Resolution Status At high risk for altered skin integrity chronicInflammationchronicPainchronicThinning of skinchronicTraumatic wound resolved [facility] Work Phone: Evaluation note* Diagnosis Onset Date Resolution Status At high risk for altered skin integrity chronicInflammationchronicPainchronicThinning of skinchronicTraumatic wound resolvedBlurred visionacuteBundle branch blockacuteElevated troponin level not due to acute coronary syndromeacuteHistory of transcatheter aortic valve replacement (TAVR)acuteAtrial fibrillationchronic [facility] Work Phone: Evaluation note* Diagnosis 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 Permanent atrial fibrillation (Multi) Atrial fibrillation Coronary artery disease, unspecified vessel or lesion type, unspecified whether angina present, unspecified whether red devil or transplanted heart Congestive heart failure, NYHA class 2, unspecified congestive heart failure type (Multi) Pulmonary hypertension (Multi) Other chronic pulmonary heart diseases Hypertension, unspecified type Pure hypercholesterolemia PVD (peripheral vascular disease) ([facility]) Unspecified peripheral vascular disease Type 2 diabetes mellitus without complication, unspecified whether exterminator helper insulin use (Multi) Stage 2 chronic kidney disease Former smoker Personal history of tobacco use, presenting hazards to health documented in this encounter [facility] Work Phone: Evaluation note* Diagnosis Onset Date Resolution Status Contusion of rib on right side acuteFall from slip, trip, or stumbleacuteRight knee injuryacuteTraumatic hematoma of foreheadacute [facility] Work Phone: Evaluation note* Diagnosis Onset Date Resolution Status Contusion of rib on right side acuteFall from slip, trip, or stumbleacuteRight knee injuryacuteTraumatic hematoma of foreheadacuteContusion of rib on right sideacuteFall from slip, trip, or stumbleacuteImpaired mobility and activities of daily livingacuteKnee painacuteRight knee injuryacuteRight patella fractureacuteTraumatic hematoma of foreheadacutePainchronic [facility] Work Phone: Evaluation note* Diagnosis Onset Date Resolution Status Contusion of rib on right side acuteFall from slip, trip, or stumbleacuteRight knee injuryacuteTraumatic hematoma of foreheadacuteContusion of rib on right sideacuteFall from slip, trip, or stumbleacuteRight knee injuryacuteTraumatic hematoma of foreheadacute Impaired mobility and activities of daily livingresolvedKnee painresolvedPain resolvedRight patella fractureresolvedHemarthrosisacuteHistory of bladder cancer acuteHistory of prostate canceracuteHistory of transcatheter aortic valve replacement (TAVR)acuteRight knee injuryacuteAtrial fibrillationchronicDiabetes mellitus type 2, diet-controlledchronicVenous stasis of both lower extremities chronicImpaired mobility and activities of daily livingresolvedKnee painresolved Right patella fractureresolved [facility] Work Phone: Evaluation note* Diagnosis Onset Date Resolution Status Contusion of rib on right side acuteFall from slip, trip, or stumbleacuteRight knee injuryacuteTraumatic hematoma of foreheadacuteContusion of rib on right sideacuteFall from slip, trip, or stumbleacuteRight knee injuryacuteRight patella fractureacuteTraumatic hematoma of foreheadacuteImpaired mobility and activities of daily living resolvedKnee painresolvedPainresolvedRight knee injuryacuteRight patella fractureacuteVenous stasis of both lower extremitieschronicHemarthrosisresolved Impaired mobility and activities of daily livingresolvedKnee painresolved Osteoarthritis of right kneeacuteRight patella fractureacute [facility] Work Phone: Evaluation note* Diagnosis Onset Date Resolution Status Contusion of rib on right side acuteFall from slip, trip, or stumbleacuteRight knee injuryacuteTraumatic hematoma of foreheadacuteContusion of rib on right sideacuteFall from slip, trip, or stumbleacuteRight knee injuryacuteRight patella fractureacuteTraumatic hematoma of foreheadacuteImpaired mobility and activities of daily living resolvedKnee painresolvedPainresolvedRight knee injuryacuteRight patella fractureacuteVenous stasis of both lower extremitieschronicHemarthrosisresolved Impaired mobility and activities of daily livingresolvedKnee painresolved Osteoarthritis of right kneeacuteRight patella fractureacuteLight-headedness acuteNumbness and tingling in left armacute [facility] Work Phone: Evaluation note* Diagnosis Onset Date Resolution Status Contusion of rib on right side acuteFall from slip, trip, or stumbleacuteRight knee injuryacuteTraumatic hematoma of foreheadacuteContusion of rib on right sideacuteFall from slip, trip, or stumbleacuteRight knee injuryacuteRight patella fractureacuteTraumatic hematoma of foreheadacuteImpaired mobility and activities of daily living resolvedKnee painresolvedPainresolvedRight knee injuryacuteRight patella fractureacuteVenous stasis of both lower extremitieschronicHemarthrosisresolved Impaired mobility and activities of daily livingresolvedKnee painresolved Osteoarthritis of right kneeacuteRight patella fractureacuteLight-headedness acuteNumbness and tingling in left armacuteTransient ischemic attack (TIA)acute [facility] Work Phone: Evaluation note* Diagnosis Onset Date Resolution Status Contusion of rib on right side acuteFall from slip, trip, or stumbleacuteRight knee injuryacuteTraumatic hematoma of foreheadacuteContusion of rib on right sideacuteFall from slip, trip, or stumbleacuteRight knee injuryacuteRight patella fractureacuteTraumatic hematoma of foreheadacuteImpaired mobility and activities of daily living resolvedKnee painresolvedPainresolvedRight knee injuryacuteRight patella fractureacuteVenous stasis of both lower extremitieschronicHemarthrosisresolved Impaired mobility and activities of daily livingresolvedKnee painresolved Osteoarthritis of right kneeacuteRight patella fractureacuteLight-headedness acuteNumbness and tingling in left armacuteTransient ischemic attack (TIA)acute Osteoarthritis of right kneeacuteRight patella fractureacute [facility] Work Phone: Evaluation note* Diagnosis Onset Date Resolution Status Contusion of rib on right side acuteFall from slip, trip, or stumbleacuteRight knee injuryacuteTraumatic hematoma of foreheadacuteContusion of rib on right sideacuteFall from slip, trip, or stumbleacuteRight knee injuryacuteRight patella fractureacuteTraumatic hematoma of foreheadacuteImpaired mobility and activities of daily living resolvedKnee painresolvedPainresolvedRight knee injuryacuteRight patella fractureacuteVenous stasis of both lower extremitieschronicHemarthrosisresolved Impaired mobility and activities of daily livingresolvedKnee painresolved Osteoarthritis of right kneeacuteRight patella fractureacuteLight-headedness acuteNumbness and tingling in left armacuteTransient ischemic attack (TIA)acute Osteoarthritis of right kneeacuteRight patella fractureacuteElevated troponin acuteHeart failureacuteHypomagnesemiaacuteSubtherapeutic international normalized ratio (INR)acute[facility] Work Phone: Evaluation note* Diagnosis Onset Date Resolution Status Contusion of rib on right side acuteFall from slip, trip, or stumbleacuteRight knee injuryacuteTraumatic hematoma of foreheadacuteContusion of rib on right sideacuteFall from slip, trip, or stumbleacuteRight knee injuryacuteRight patella fractureacuteTraumatic hematoma of foreheadacuteImpaired mobility and activities of daily living resolvedKnee painresolvedPainresolvedRight knee injuryacuteRight patella fractureacuteVenous stasis of both lower extremitieschronicHemarthrosisresolved Impaired mobility and activities of daily livingresolvedKnee painresolved Osteoarthritis of right kneeacuteRight patella fractureacuteLight-headedness acuteNumbness and tingling in left armacuteTransient ischemic attack (TIA)acute Osteoarthritis of right kneeacuteRight patella fractureacuteDysequilibriumacute Elevated troponinacuteHeart failureacuteHypomagnesemiaacuteSubtherapeutic international normalized ratio (INR)acute[facility] [place] Work Phone: Evaluation note* Diagnosis Onset Date Resolution Status Contusion of rib on right side acuteFall from slip, trip, or stumbleacuteRight knee injuryacuteTraumatic hematoma of foreheadacuteContusion of rib on right sideacuteFall from slip, trip, or stumbleacuteRight knee injuryacuteRight patella fractureacuteTraumatic hematoma of foreheadacuteImpaired mobility and activities of daily living resolvedKnee painresolvedPainresolvedRight knee injuryacuteRight patella fractureacuteVenous stasis of both lower extremitieschronicHemarthrosisresolved Impaired mobility and activities of daily livingresolvedKnee painresolved Osteoarthritis of right kneeacuteRight patella fractureacuteLight-headedness acuteNumbness and tingling in left armacuteTransient ischemic attack (TIA)acute Osteoarthritis of right kneeacuteRight patella fractureacuteDysequilibriumacute Subtherapeutic international normalized ratio (INR)acuteWeaknessacuteElevated troponinresolvedHeart failureresolvedHypomagnesemiaresolvedBicipital tendinitis, right shoulderacuteOsteoarthritis of right kneeacuteRight patella fractureacute Rotator cuff syndrome of right shoulderacute [facility] Work Phone: Evaluation note* Diagnosis Seborrheic keratosis- Primary documented in this encounter [facility] HealthcareEvaluation note* Diagnosis TIA (transient ischemic attack)- Primary Unspecified transient cerebral ischemia Cervical spondylosis without myelopathy Hyperreflexia Abnormal reflex documented in this encounter [facility] HealthcareEvaluation note* Diagnosis Skin tear of left elbow without complication, initial encounter- Primary Left leg cellulitis Left leg swelling Blood blister Vascular disorder of skin documented in this encounter [facility] HealthcareEvaluation note* Diagnosis Non-pressure chronic ulcer of other part of left lower leg with fat layer exposed ([facility])- Primary documented in this encounter 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 Coronary artery disease, unspecified vessel or lesion type, unspecified whether angina present, unspecified whether red devil or transplanted heart Pulmonary hypertension (Multi) Other chronic pulmonary heart diseases Congestive heart failure, NYHA class 2, unspecified congestive heart failure type Permanent atrial fibrillation (Multi) Atrial fibrillation PVD (peripheral vascular disease) ([facility]) Unspecified peripheral vascular disease Former smoker Personal history of tobacco use, presenting hazards to health BMI 23.0-23.9, adult documented in this encounter [facility] Work Phone: Evaluation note* Diagnosis Lumbosacral spondylosis without myelopathy- Primary Skin tear of left elbow without complication, initial encounter Left leg cellulitis documented in this encounter [facility] HealthcareEvaluation note* Diagnosis Congestive heart failure, NYHA class 2, unspecified congestive heart failure type BMI 24.0-24.9, adult Former smoker Personal history of tobacco use, presenting hazards to health documented in this encounter [facility] Work Phone: Evaluation note* Diagnosis TIA (transient ischemic attack)- Primary Unspecified transient cerebral ischemia Generalized muscle weakness Muscle weakness (generalized) Chronic systolic congestive heart failure, NYHA class 2 ([facility]/HCC) documented in this encounter [facility] HealthcareEvaluation note* Diagnosis Nontraumatic tear of right rotator cuff, unspecified tear extent- Primary documented in this encounter [facility] HealthcareEvaluation note* Diagnosis Mixed hyperlipidemia (CMS/HCC)- Primary Mixed hyperlipidemia Prediabetes Other abnormal glucose 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 (CMS/HCC) Chronic atrial fibrillation (HCC) (CMS/HCC) Atrial fibrillation Congestive heart failure, NYHA class 2, unspecified congestive heart failure type (CMS/HCC) Gastroesophageal reflux disease without esophagitis Esophageal reflux Anemia, unspecified type Lumbosacral spondylosis without myelopathy History of gout Personal history of endocrine, metabolic, and immunity disorders Centrilobular emphysema ([facility]/HCC) Medicare annual wellness visit, subsequent ACP (advance care planning) Other specified counseling documented in this encounter [facility] HealthcareEvaluation note* Diagnosis Acute non-recurrent pansinusitis- Primary Acute cough Wheeze Wheezing Cerumen debris on tympanic membrane of left ear documented in this encounter [facility] HealthcareEvaluation note* Diagnosis Sinus congestion- Primary Other diseases of nasal cavity and sinuses Throat discomfort Throat pain Light headedness Dysfunction of both eustachian tubes Bruising Contusion of unspecified site Epistaxis Chronic systolic congestive heart failure, NYHA class 2 (CMS/HCC) documented in this encounter [facility] HealthcareEvaluation note* Diagnosis Congestive heart failure, NYHA class 2, unspecified congestive heart failure type 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 Chronic atrial fibrillation (Multi) Atrial fibrillation half-way (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 Long-term (current) use [...] BMI 24.0-24.9, adult documented in this encounter [facility] Work Phone: Evaluation note* Diagnosis Chronic systolic congestive heart failure, NYHA class 2 (HCC)- Primary 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 Mixed hyperlipidemia Mixed [...] lower extremity pain documented in this encounter [facility]* Diagnosis Chronic systolic congestive heart failure, NYHA class 2 (HCC)- Primary Throat congestion Other symptoms involving head and neck 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, single episode, moderate documented in this encounter [facility]* Diagnosis Balance disorder- Primary Vertigo of central origin Frequent falls Congestive heart failure, NYHA class 2, unspecified congestive heart failure type (HCC) Centrilobular emphysema (HCC) Chronic cough Cough Laceration of scalp without foreign body, subsequent encounter Epistaxis documented in this encounter [facility] HealthcareHistory general Narrative - Reported* Type Description Date Medical History A fib Medical Historybladder cancerMedical Historyprostate cancerMedical Historytype II diabetesMedical Historyspinal stenosisMedical HistoryNON-HEALING ULCER RLE Medical HistoryCADSurgical Historycystoscopy,January;Disease:Kidney [id number] Surgical Historyrotater cuffSurgical HistoryCardioversion in the fall :[id number] Surgical Historyleft hipSurgical HistorybladderSurgical [id number] Surgical Historybladder cancer tumor [id number] HistoryR hallux fused;Disease:pain R [id number] Historyneuroma removed R footSurgical Historydiet controlled;Disease:type II diabetesSurgical Historycystoscopy ureteroscopy,left ureteral calculus strictureSurgical Historyhip replacement,on Left.March 29;Disease:[id number] HistoryColonoscopy, [id number] Surgical Historycorrective lenses visual impairmentSurgical [facility]left [facility]ator [facility]2991Vgjzlejy HistoryColonoscopy per Dr. ErwinOqwwp01-69-13Ckrnfyjf Historyheart valve snucrcllmvt62/2020Surgical History status post right total [id number] Historyleft rotator cuff repair Dr. Zurita in [facility]01/2015Hospitalization Historysee surgical [facility] [employer] Other History general Narrative - Reported* Type Description Date Medical History A fib Medical Historybladder cancerMedical Historyprostate cancerMedical Historytype II diabetesMedical Historyspinal stenosisMedical HistoryNON-HEALING ULCER RLE/LLEMedical HistoryCADSurgical Historycystoscopy,January;Disease:Kidney Stones 2009Surgical Historyrotater cuffSurgical HistoryCardioversion in the fall :afib 2007Surgical Historyleft hipSurgical HistorybladderSurgical Historyprostatectomy 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 ErwinEuinv56-64-09Huomrmbr Historyheart valve lneuluuypjr77/2020Surgical History status post right total [id number] Historyleft rotator cuff repair Dr. Zurita in [facility]01/2015Hospitalization Historysee surgical hx [facility] Serious Parody Other Hospital Discharge instructions Additional Instructions Elevate your left lower extremity as instructed Take your antibiotic as instructed until gone Please return if you develop any fevers, chills, calf pain, increased pain, increased redness, increased swelling, or any other concern You have blood cultures that are pending.[facility] Work Phone: Hospital Discharge instructions Additional Instructions [...] other reasons. 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 [ ][facility] Work Phone: Hospital Discharge instructionsAmbulatory Orders* Initiate Home Health Time Frame: 1 Day, Location: Determined By Patient Additional Instructions Home Home Health to manage care: - Full code - PT/OT eval and treat - Routine vital signs - Weight bearing as tolerated Please do not take Tramadol if taking Oxycodone.[facility] Work Phone: Hospital Discharge instructionsAmbulatory Orders* PT/OT/SP OutPatient Referral Time Frame: 1 Day, Location: Determined By Patient [facility] Work Phone: Hospital Discharge instructions Additional Instructions Its important that you take your antibiotics as instructed until gone Push fluids Rest Return here if any problems persist or worsen.[facility] Work Phone: Instructions* Name Dates Details Instructions not documented [facility] [address] [place] Work Phone: Instructions* Name Dates Details Instructions not documented [facility] [address] [place] Work Phone: Instructions* Name Dates Details Instructions not documented [facility] [address] [place] Work Phone: Progress note Author Marisela Shaffer [facility] March 19, 2022 10:50amNote Date/TimeOct2021 10:50[place] [address] Wound Center Provider Note Signed Patient: Fani Chua MR#: [id number] : 1935 Acct:[id number] Age/Sex: 86 / M Copies to: NO FAMILY PHYSICIAN Marisela Shaffer APRN~ HPI Date of Visit Date of Visit: Date of Service: 03/19/2022 Time of Service: 10:48 Narrative HPI: 02/04/22 Te is an 86 year old male presenting to [facility] wound care program for an [...] to the left leg from the vacuum kitchen cleaner, honey sheet to both areas, 2 [...] 2022 right, 02/18/22 Left Mode of Arrival/ Program Services Planner: Personal vehicle Lives with:: Spouse Appetite Description: [...] 10:31) Swelling of Lip/Tongue/Throat bacitracin [From Neosporin ([id number])] Allergy (Verified 03/19/22 10:31) itch and rash neomycin [From Neosporin (vle-tly-fotcy)] Allergy (Verified 03/19/22 10:31) itch and rash polymyxin B [From Neosporin (rvv-umr-xrhws)] Allergy (Verified 03/19/22 10:31) Rash and itch [...] by BENJI Shaffer> 03/19/22 [address] [facility] Work Phone: reason for referral (narrative)No reason for referral information availableKettering Health [facility] Work Phone: reason for visit Narrative* CV Imaging (Routine) - AuthorizedSpecialtyDiagnoses / ProceduresReferred By ContactReferred To ContactCardiology Diagnoses 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 Procedures Transthoracic Echo Complete DC ECHO TTHRC R-T 2D W/WOM-MODE COMPL SPEC&COLR D Bonita iKngsley MD [address] [facility] [address] [place] [address] Phone: tel: fax: Referral IDStatusReasonStart DateExpiration DateVisits RequestedVisits [id number] Perform Procedure [facility] Work Phone: Family History No Family History Records FoundUnknown Family Member Name Dates Details Family history of malignant neoplasm(V16.9, Z80.9) Comments:Multiple Family Members Status:ActiveFamily history of diabetes mellitus(V18.0, Z83.3) Comments:Multiple Family Members Status:Active Unknown Family Member Name Dates Details Family history of malignant neoplasm: Multiple Family Members(V16.9, Z80.9) Status:ActiveFamily history of diabetes mellitus: Multiple Family Members(V18.0, Z83.3) Status:Active Unknown Family Member Name Dates Details Family history of malignant neoplasm: Multiple Family Members(V16.9, Z80.9) Status:ActiveFamily history of diabetes mellitus: Multiple Family Members(V18.0, Z83.3) Status:ActiveFamily history of cardiomegaly: Mother(V17.49, Z82.49) Status:ActiveFamily history of chronic obstructive pulmonary disease: Brother (V17.6, Z82.5) Status:ActiveFamily history of rheumatic fever: Father(V17.49, Z82.49) Status:Active Unknown Family Member Name Dates Details Family history of malignant neoplasm(V16.9, Z80.9) Comments:Multiple Family Members Status:ActiveFamily history of diabetes mellitus(V18.0, Z83.3) Comments:Multiple Family Members Status:Active Unknown Family Member Name Dates Details Family history of malignant neoplasm(V16.9, Z80.9) Comments:Multiple Family Members Status:ActiveFamily history of diabetes mellitus(V18.0, Z83.3) Comments:Multiple Family Members Status:Active Unknown Family Member Name Dates Details Family history of malignant neoplasm(V16.9, Z80.9) Comments:Multiple Family Members Status:ActiveFamily history of diabetes mellitus(V18.0, Z83.3) Comments:Multiple Family Members Status:Active Unknown Family Member Name Dates Details Family history of rheumatic fever: Father(V17.49, Z82.49) Status:ActiveFamily history of chronic obstructive pulmonary disease: Brother (V17.6, Z82.5) Status:ActiveFamily history of cardiomegaly: Mother(V17.49, Z82.49) Status:ActiveFamily history of diabetes mellitus: Multiple Family Members(V18.0, Z83.3) Status:ActiveFamily history of malignant neoplasm: Multiple Family Members (V16.9, Z80.9) Status:Active Relationship Condition Age at Onset Recorded Date/T gavino father Coronary artery disease Unknown Not SpecifiedCoronary artery diseaseUnknownbrotherBipolar I disorderUnknown Chronic obstructive pulmonary diseaseUnknowngrandparentMalignant neoplasmUnknown grandparentDiabetes mellitusUnknownUnknown Family Member Name Dates Details Family history of malignant neoplasm: Multiple Family Members(V16.9, Z80.9) Status:ActiveFamily history of diabetes mellitus: Multiple Family Members(V18.0, Z83.3) Status:ActiveFamily history of cardiomegaly: Mother(V17.49, Z82.49) Status:ActiveFamily history of chronic obstructive pulmonary disease: Brother (V17.6, Z82.5) Status:ActiveFamily history of rheumatic fever: Father(V17.49, Z82.49) Status:Active Unknown Family Member Name Dates Details Family history of malignant neoplasm: Multiple Family Members(V16.9, Z80.9) Status:ActiveFamily history of diabetes mellitus: Multiple Family Members(V18.0, Z83.3) Status:ActiveFamily history of cardiomegaly: Mother(V17.49, Z82.49) Status:ActiveFamily history of chronic obstructive pulmonary disease: Brother (V17.6, Z82.5) Status:ActiveFamily history of rheumatic fever: Father(V17.49, Z82.49) Status:Active Unknown Family Member Name Dates Details Family history of malignant neoplasm: Multiple Family Members(V16.9, Z80.9) Status:ActiveFamily history of diabetes mellitus: Multiple Family Members(V18.0, Z83.3) Status:ActiveFamily history of cardiomegaly: Mother(V17.49, Z82.49) Status:ActiveFamily history of chronic obstructive pulmonary disease: Brother (V17.6, Z82.5) Status:ActiveFamily history of rheumatic fever: Father(V17.49, Z82.49) Status:Active Unknown Family Member Name Dates Details Family history of malignant neoplasm: Multiple Family Members(V16.9, Z80.9) Status:ActiveFamily history of diabetes mellitus: Multiple Family Members(V18.0, Z83.3) Status:ActiveFamily history of chronic obstructive pulmonary disease: Brother (V17.6, Z82.5) Status:ActiveFamily history of cardiomegaly: Mother(V17.49, Z82.49) Status:ActiveFamily history of rheumatic fever: Father(V17.49, Z82.49) Status:Active Relationship Condition Age at Onset Recorded Date/T gavino father Coronary artery disease Unknown Not SpecifiedCoronary artery diseaseUnknownbrotherBipolar I disorderUnknown Chronic obstructive pulmonary diseaseUnknowngrandparentMalignant neoplasmUnknown grandparentDiabetes mellitusUnknowndaughterBipolar I disorderUnknown Relationship Condition Age at Onset Recorded Date/T gavino father Coronary artery disease Unknown motherCoronary artery diseaseUnknownbrotherBipolar I disorderUnknownChronic obstructive pulmonary diseaseUnknowngrandparentMalignant neoplasmUnknown grandparentDiabetes mellitusUnknowndaughterBipolar I disorderUnknownbrother DeceasedUnknownfatherDeceasedUnknownHeart diseaseUnknownmotherHeart disease UnknownDeceasedUnknownsiblingMalignant neoplasmUnknown Relationship Condition Age at Onset Recorded Date/T gavino Not Specified Atrial fibrillation Unknown fatherCoronary artery diseaseUnknownmotherCoronary artery diseaseUnknownbrother Bipolar I disorderUnknownChronic obstructive pulmonary diseaseUnknowngrandparent Malignant neoplasmUnknowngrandparentDiabetes mellitusUnknowndaughterBipolar I disorderUnknownbrotherDeceasedUnknownfatherDeceasedUnknownHeart diseaseUnknown motherHeart diseaseUnknownDeceasedUnknownsiblingMalignant neoplasmUnknown Relationship Condition Age at Onset Recorded Date/T gavino Not Specified Atrial fibrillation Unknown fatherCoronary artery diseaseUnknownDeceasedUnknownHeart diseaseUnknownmother Coronary artery diseaseUnknownbrotherBipolar I disorderUnknownChronic obstructive pulmonary diseaseUnknowngrandparentMalignant neoplasmUnknown grandparentDiabetes mellitusUnknowndaughterBipolar I disorderUnknownbrother DeceasedUnknownsiblingMalignant neoplasmUnknown Chief Complaint * FANI CHUA is being seen for an annual follow-up of. * Patient is in the office for follow-up for TAVR. He is currently without any dyspnea or lower extremity edema. He has permanent atrial fibrillation with controlled rate and currently on Coumadin managed by the [facility] Coumadin clinic without bleeding complications. His [...] aortic stenosis status post TAVR 2019 at [facility]. Follow-up echocardiogram in February 2021 was reviewed [...] and currently on Coumadin managed by the [facility] Coumadin clinic without bleeding complications. His [...] aortic stenosis status post TAVR 2019 at [facility]. Follow-up echocardiogram in February 2021 was reviewed [...] aortic stenosis status post TAVR 2019 at [facility]. Follow-up echocardiogram is scheduled. Currently asymptomatic from [...] M16.11 L03.90 return / chest (singles), R leg/ankleReason for VisitTraumatic wound Chief Complaint M16.11 L03.90 Open WoundReason for VisitTraumatic wound At high risk for altered skin [...] infection Open Wound hydronephrosis, bladder, cancer, prostate caReason for VisitAt high risk for altered skin integrity Inflammation Pain Thinning of skin Traumatic wound Chief Complaint n13.30 L leg infection hydronephrosis, bladder, cancer, prostate ca Open WoundReason for VisitAt high risk for altered skin integrity Inflammation Pain Thinning of skin Traumatic wound Chief Complaint hydronephrosis, blad norris, cancer, prostate ca Open Wound hydronephrosis, bladder, cancer, prostate caReason for VisitAt high risk for altered skin integrity Inflammation Pain Thinning of skin Traumatic wound Chief Complaint hydronephrosis, blad norris, cancer, prostate ca Open Wound hydronephrosis, bladder, cancer, prostate ca dizzyReason for VisitAt high risk for altered skin integrity Inflammation Pain Thinning of skin [...] forehead Chief Complaint Fall: head injury knee fxReason for VisitContusion of rib on right side Fall from slip, trip, or stumble Right knee injury Traumatic hematoma of forehead Chief Complaint Fall: head injury knee fx knee fx knee fxReason for VisitContusion of rib on right side Fall from [...] knee fx R Patellar Fx R Patellar FxReason for VisitContusion of rib on right side Fall from [...] osteoarthritis, right FOLLOW UP FROM HOSP P[facility] FXReason for VisitContusion of rib on right side Fall from [...] FROM HOSP PATELLAR FX lt arm numbness, tinglyReason for VisitContusion of rib on right side Fall from [...] Unilateral primary osteoarthritis, right FOLLOW UP FROM [facility] FX lt arm numbness, tinglyReason for VisitContusion of rib on right side Fall from [...] Unilateral primary osteoarthritis, right FOLLOW UP FROM [facility] PATELLAR FX lt arm numbness, tingly 4 WEEKS S82.001A - Unspecified fracture of right patella,Reason for VisitContusion of rib on right side Fall from [...] - Unspecified fracture of right patella, Generalized weaknessReason for VisitContusion of rib on right side Fall from [...] - Unspecified fracture of right patella, Generalized weaknessReason for VisitContusion of rib on right side Fall from [...] in right shoulder CONSULT MARIA FERNANDA LAWS BACTERIOLOGIST DAIRY RIGHT SHOULDER PAIN NXReason for VisitContusion of rib on right side Fall from [...] M25.511 M17.11 S82.001A CONSULT MARIA FERNANDA LAWS BACTERIOLOGIST DAIRY RIGHT SHOULDER PAIN NXReason for VisitContusion of rib on right side Fall from [...] pain, chills June 15, 2024 1: 21pm Chief Complaint Admit Date fall March 22, 2025 1: 00am Reason for Visit Admit Date Fall from slip, trip, or stumble March 22, 2025 1:00am Forehead laceration March 22, 2025 1: 00am Head injury March 22, 2025 1: 00am Multiple skin tears March 22, 2025 1: 00am Traumatic hematoma of forehead March 222024 1:00am Warfarin anticoagulation March 22 1:00am Advance Directives No Advanced Directives Records Found Advance Directive Response Recorded Date/ Time Advance Directives No April 11:20am Advance Directive Response Recorded Date/ Time Advance Directives No April 10:20am Summary Purpose Reason for Referral SpecialtyDiagnoses / ProceduresReferred By ContactReferred To ContactCardiology Diagnoses 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 Procedures Transthoracic Echo (TTE) Complete DC ECHO TRANSTHORC R-T 2D W/WO M-MODE REC F-UP/LMTD DC DOP ECHOCARD COLOR FLOW VELOCITY MAPPING DC DOP ECHOCARD PULSE WAVE W/SPECTRAL F-UP/LMTD STD Bonita Kingsley MD [address] [address], [address] [address] Referral IDStatusReasonStart DateExpiration DateVisits RequestedVisits [id number] Perform Procedure Additional Source Comments REASON FOR VISIT (unrecogniz ed section and content) SpecialtyDiagnoses / ProceduresReferred By ContactReferred To ContactCardiology Diagnoses 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 Procedures Transthoracic Echo (TTE) Complete DC ECHO TRANSTHORC R-T 2D W/WO M-MODE REC F-UP/LMTD DC DOP ECHOCARD COLOR FLOW VELOCITY MAPPING DC DOP ECHOCARD PULSE WAVE W/SPECTRAL F-UP/LMTD STD Bonita Kingsley MD [address] [place] [address], [address] [address] Referral IDStatMemorial [facility] – GuymonasonRoscoe DateExpiration DateVisits RequestedVisits [id number] Perform Procedure [id number]-deHRBX dischargeReasonComments Suspicious Skin LesionReasonCommentsWound CheckReferralReasonCommentsFollow-up6m and echo resultsSpecialtyDiagnoses / ProceduresReferred By ContactReferred To ContactCardiology Diagnoses Nonrheumatic aortic valve stenosis Procedures Follow Up In Cardiology Bonita Kingsley MD [address] [place] [address], [address] [address] Phone: tel: fax: Bonita Kingsley MD [address] [place] [address] 2, [address] [address] Phone: tel: fax: Referral IDStatusReasonStart DateExpiration DateVisits RequestedVisits [id number]/16/20244/[id number] DateCommentsMed [id number] Pressure CheckSpecialtyDiagnoses / ProceduresReferred By ContactReferred To ContactCardiology Diagnoses Congestive heart failure, NYHA class 2, unspecified congestive heart failure type Procedures Follow Up In Cardiology Bonita Kingsley MD [address] [place] [address], [place] [address] Phone: tel: fax: Bonita Kingsley MD [address] [place] [address], [place] [address] Phone: tel: fax: Referral IDStatusReasonStart DateExpiration DateVisits RequestedVisits [id number]/4/202411/4/[id number] HospitalReason CommentsShoulder PainReasonComments6 Month Follow UpMedicare Annual Wellness Visit SubsequentReasonCommentsSinus ProblemReasonCommentsSinusitisReasonComments Follow-up6 month follow up for congestive heart failureSpecialtyDiagnoses / ProceduresReferred By ContactReferred To ContactCardiology Diagnoses Congestive heart failure, NYHA class 2, unspecified congestive heart failure type Procedures Follow Up In Cardiology Bonita Kingsley MD [address] [place] [address] 2, [address] [id number] Phone: tel: fax: Bonita Kingsley MD [address] [place] [address], [address] [id number] Phone: tel: fax: Referral IDStatusReasonStart DateExpiration DateVisits RequestedVisits [id number]/4/202411/[id number] Month Follow Up of Chronic ConditionsAnxietyReasonComments1 month follow upPt is being seen today for his 1 [...] might need dose increases as his condition worsens.ReasonCommentsHospital Follow-upPatient was [place] [facility] [place] due to a fall. Two lacerations on forehead, both sutured. Several skin tears. He is following with [facility] wound care and has [facility] once weekly. He is going to start in home PT. Care Teams (unrecognized sec tion and content) Team Status: Active Member Role Status Dates María Anderson MD Primary Care Provider Active Team Status: Inactive Member Role Status Dates María Anderson MD Primary Care Provider Active St art: March 22, 2025 End: March 22, 2025ThValerio Malcolm Jr ProviderActiveStart: March 22, 2025 End: March 22, 2025MicSon Matsonit ProviderActiveStart: March 22, 2025 End: March 22, 2025Obamarquis Patricia MDAttramon ProviderActiveStart: March 22, 2025 End: March 22, 2025 Team Status: Active Member Role Status Dates María Anderson MD Primary Care Provider Active St art: March 22, 2025 Valerio Fuller Jr ProviderActiveStart: March 22, 2025 Anjana Rojas ProviderActiveStart: March 22, 2025 Isai May DOAttramon ProviderActiveStart: March 22, 2025 Team Status: Inactive Member Role Status Dates María Anderson MD Primary Care Provider Active St art: December 20, 2023 End: December 20, 2023ThValerio Malcolm Jr ProviderActiveStart: December 20, 2023 End: December 20, 2023Joshayla Louise DO RESActiveStart: December 20, 2023 End: December 20, 2023MicAnjana Matson ProviderActiveStart: December 20, 2023 End: December 20, 2023Betty Buchanan , MDAttending ProviderActiveStart: December 20, 2023 End: December 20, 2023Thnabil Waite MDOther ProviderActiveStart: December 20, 2023 End: December 19jon Bishop MDOther ProviderActiveStart: December 20, 2023 End: December 20, 2023Mona Tyler NP-COther ProviderActiveStart: December 20, 2023 End: December 20, 2023Jurohith Morales , Other ProviderActiveStart: December 20, 2023 End: December 19jae Stevenson II, MDOther ProviderActiveStart: December 20, 2023 End: December 20, 2023Ramses Garcia DOOther ProviderActiveStart: December 20, 2023 End: December 20, 2023 Team Status: Active Member Role Status Dates María Anderson MD Primary Care Provider Active St art: December 20, 2023 Caren Crooks Jr, MDEmeeddie ProviderActiveStart: December 20, 2023 Henry Louise DO RESActiveStart: December 20, 2023 Isai May DOAdmit Provider, Attending ProviderActiveStart: December 20, 2023 Team Status: Active Member Role Status Dates Marisela Shaffer APRN Attending Provider Active PHYSICIAN NO FAMILYPrimary Care ProviderActive Team Status: Inactive Member Role Status Tj العلي DO Primary Care Provider Active Sintia Sandoval II ProviderActive Team Status: Inactive Member Role Status Dates Caren Pineda MD Attending Provider Active PHYSICIAN NO FAMILYPrimary Care ProviderActive Team Status: Active Member Role Status Dates PHYSICIAN NO FAMILY Primary Care Provider Active Team Status: Inactive Member Role Status Dates Marisela Shaffer APRN Attending Provider Active PHYSICIAN NO FAMILYPrimary Care ProviderActive Team Status: Inactive Member Role Status Tj Shaffer APRN Attending Provider Active Gabe Granger ProviderActive Team Status: Active Member Role Status Tj العلي DO Primary Care Provider Active Team Status: Inactive Member Role Status Tj العلي DO Primary Care Provider, Attending Fito payan Active Team Status: Inactive Member Role Status Dates María Anderson MD Primary Care Provider, Attending Walter perez Active Team Status: Inactive Member Role Status Dates María Anderson MD Primary Care Provider Active Ania Guzmán ProviderActive Team Status: Active Member Role Status Tj Anderson MD Primary Care Provider Active Elissa Betancourt ProviderActive Team Status: Inactive Member Role Status Tj Anderson MD Primary Care Provider Active Sintia Delgado ProviderActive Team Status: Inactive Member Role Status Tj Anderson MD Primary Care Provider Active Elissa Betancourt ProviderActiveTeam MemberRelationshipSpecialtyStart DateEnd Date María Anderson MD [address] [place] [address] PCP - General02/24/23 Team Status: Inactive Member Role Status Tj Anderson MD Primary Care Provider Active Tay Wood DOEmergenbrook ProviderActiveKaitderrek Segura , DO RESActiveMicamarilys May , DOAdmit Provider, Attending ProviderActiveAdavinny Glover , DOOther ProviderActiveLenora Gonzalez RNOther ProviderActiveW Amrik Hassan , DOOther ProviderActiveBonita Kingsley MDOther ProviderActiveWireyes Bolivar MDOther ProviderActiveMolara Lugo MDOther ProviderActiveRobert Avila MDOther ProviderActiveDonna Nyla Lewis APRNOther Provider ActiveVika Goyal MDOther ProviderActiveMohamjose Rolon MDOther ProviderActiveTaclare Hills MDOther ProviderActiveCarol LOUIS SureshP-BCOther ProviderActiveEmily Latham MDOther ProviderActiveTeam MemberRelationship SpecialtyStart DateEnd Date María Anderson MD [address] [place] [address] PCP [facility]02/24/23 Team Status: Active Member Role Status Tj Anderson MD Primary Care Provider Active St art: December 21, 2023 Swati Sagastume MDEmergency ProviderActiveStart: December 21, 2023 Hilario Skelton MDAdmit Provider, Attending ProviderActiveStart: December 21, 2023 Team Status: Active Member Role Status Dates María Anderson MD Primary Care Provider Active St art: December 22, 2023 Valerio Lange ProviderActiveStart: December 22, 2023 Hilario Skelton , MDAdmit ProviderActiveStart: December 22, 2023 Ashley Merritt MDOther ProviderActiveStart: December 22, 2023 Camilla Barajas ProviderActiveStart: December 22, 2023 Henry Clark MDOther ProviderActiveStart: December 22, 2023 Cherelle Schmidt , APRNOther ProviderActiveStart: December 22, 2023 Cincinnatiserg Juan Jr, DOOther ProviderActiveStart: December 22, 2023 Elver Cifuentes , MDAttending Provider, Other ProviderActiveStart: December 22, 2023 Caren Waite MDOther ProviderActiveStart: December 22, 2023 Aspen Bishop MDOther ProviderActiveStart: December 22, 2023 Mona Tyler , CHICA-COther ProviderActiveStart: December 22, 2023 Roly Morales , DOOther ProviderActiveStart: December 22, 2023 María Stevenson II, MDOther ProviderActiveStart: December 22, 2023 Ramses Garcia , DOOther ProviderActiveStart: December 22, 2023 Team Status: Inactive Member Role Status Dates María Anderson MD Primary Care Provider Active St art: December 22, 2023 End: December 22Valerio Wellington ProviderActiveStart: December 22, 2023 End: December 22ndmaryann Skelton , MDAdmit ProviderActiveStart: December 22, 2023 End: December 22papo Merritt MDAttending ProviderActiveStart: December 22, 2023 End: December 23, 2023Radha Woodward MDOther ProviderActiveStart: December 22, 2023 End: December 23, 2023Camilla Cherry ProviderActiveStart: December 22, 2023 End: December 23, 2023Cherelle Schmidt , APRNOther ProviderActiveStart: December 22, 2023 End: December 22enedict Loretta Juan Jr, DOOther ProviderActiveStart: December 22, 2023 End: December 22Camilla Harmon ProviderActiveStart: December 22, 2023 End: December 23, 2023Caren Waite MDOther ProviderActiveStart: December 22, 2023 End: December 22Camilla Parry ProviderActiveStart: December 22, 2023 End: December 23, 2023Mona Tyler , BACTERIOLOGIST DAIRY-COther ProviderActiveStart: December 22, 2023 End: December 23, 2023Roly Morales DOOther ProviderActiveStart: December 22, 2023 End: December 22jae Stevenson II, MDOther ProviderActiveStart: December 22, 2023 End: December 23, 2023Ramses Garcia DOOther ProviderActiveStart: December 22, 2023 End: December 23, 2023 Team Status: Active Member Role Status Dates María Anderson MD Primary Care Provider Active St art: December 22, 2023 Swati Sagastume MDEmergency ProviderActiveStart: December 22, 2023 Hilario Skelton MDAdmit ProviderActiveStart: December 22, 2023 Ashley Merritt MDOther ProviderActiveStart: December 22, 2023 Caren Waite MDOther ProviderActiveStart: December 22, 2023 Aspen Bishop MDOther ProviderActiveStart: December 22, 2023 Mona Tyler , BACTERIOLOGIST DAIRY-COther ProviderActiveStart: December 22, 2023 Roly Morales DOAttending Provider, Other ProviderActiveStart: December 22, 2023 María Stevenson II, MDOther ProviderActiveStart: December 22, 2023 Stephanie Whitaker ProviderActiveStart: December 22, 2023 Radha Woodward MDOther ProviderActiveStart: December 22, 2023 Henry Clark MDOther ProviderActiveStart: December 22, 2023 Cherelle Schmidt , APRNOther ProviderActiveStart: December 22, 2023 [place] Loretta Juan Jr, DOOther ProviderActiveStart: December 22, 2023 Elver Cifuentes MDOther ProviderActiveStart: December 22, 2023 Team Status: Inactive Member Role Status Dates María Anderson MD Primary Care Provider Active St art: December 23, 2023 End: December 29, 2023JoKaruna Lopez Provider, Attending ProviderActive Start: December 23, 2023 End: December 28lexcarito Jones RNOther ProviderActiveStart: December 23, 2023 End: December 28christian Chaudhry RNOther ProviderActiveStart: December 23, 2023 End: December 29, 2023Miclisa Koenig RNOther ProviderActiveStart: December 23, 2023 End: December 29, 2023Shabnam Ley RNOther ProviderActiveStart: December 23, 2023 End: December 29, 2023Macrina Rubio RNOther ProviderActiveStart: December 23, 2023 End: December 28sonia Ivey MDOther ProviderActiveStart: December 23, 2023 End: December 28gauri Bar DOOther ProviderActiveStart: December 23, 2023 End: December 29, 2023Musliang Kelsey MDOther ProviderActiveStart: December 23, 2023 End: December 29, 2023Parviz Roth DOOther ProviderActiveStart: December 23, 2023 End: December 28ndmaryann Skelton MDOther ProviderActiveStart: December 23, 2023 End: December 28papo Merritt MDOther ProviderActiveStart: December 23, 2023 End: December 29, 2023Camilla Phillips ProviderActiveStart: December 23, 2023 End: December 29, 2023Rebeca Clark ProviderActiveStart: December 23, 2023 End: December 29, 2023Camilla Torres ProviderActiveStart: December 23, 2023 End: December 28Camilla Seymour ProviderActiveStart: December 23, 2023 End: December 29, 2023Camilla Owen ProviderActiveStart: December 23, 2023 End: December 29, 2023Saivy Zarco MDOther ProviderActiveStart: December 23, 2023 End: December 29, 2023Micamarilys May DOOther ProviderActiveStart: December 23, 2023 End: December 29, 2023Camilla Quan ProviderActiveStart: December 23, 2023 End: December 29, 2023Bunny Fowler MDOther ProviderActiveStart: December 23, 2023 End: December 28abby Wright , BACTERIOLOGIST DAIRY-COther ProviderActiveStart: December 23, 2023 End: December 28dbaudilio Ruvalcaba , APRNOther ProviderActiveStart: December 23, 2023 End: December 29, 2023Bright Lopez MDOther ProviderActiveStart: December 23, 2023 End: December 29, 2023Naesummer High MDOther ProviderActiveStart: December 23, 2023 End: December 28ohCamilla Raines ProviderActiveStart: December 23, 2023 End: December 29, 2023Khcaity Enriquez MDOther ProviderActiveStart: December 23, 2023 End: December 28noCamilla Busch ProviderActiveStart: December 23, 2023 End: December 29, 2023Sherry Gonzalez DOOther ProviderActiveStart: December 23, 2023 End: December 29, 2023Bj Hess , DOOther ProviderActiveStart: December 23, 2023 End: December 29, 2023Italia [address] , APRNOther ProviderActiveStart: December 23, 2023 End: December 29, 2023Home Marino DOOther ProviderActiveStart: December 23, 2023 End: December 29, 2023Camilla Stewart ProviderActiveStart: December 23, 2023 End: December 28marya Lewis APRNOther ProviderActiveStart: December 23, 2023 End: December 28marleny Gill APRNOther ProviderActiveStart: December 23, 2023 End: December 28laa Alahmad , MDOther ProviderActiveStart: December 23, 2023 End: December 28danielle Prather MDOther ProviderActiveStart: December 23, 2023 End: December 29, 2023Fred Yanes , DOOther ProviderActiveStart: December 23, 2023 End: December 29, 2023Charley Hadley , DOOther ProviderActiveStart: December 23, 2023 End: December 29, 2023Marcelo Sharpe MDOther ProviderActiveStart: December 23, 2023 End: December 28matt Box MDOther ProviderActiveStart: December 23, 2023 End: December 28sophie Alston , APRNOther ProviderActiveStart: December 23, 2023 End: December 29, 2023Aidan Knight MDOther ProviderActiveStart: December 23, 2023 End: December 28hebert Palmer MDOther ProviderActiveStart: December 23, 2023 End: December 29, 2023Naheed Uriostegui RNOther ProviderActiveStart: December 23, 2023 End: December 29, 2023 Team Status: Active Member Role Status Dates María Anderson MD Primary Care Provider Active St art: December 24, 2023 Henry Clark , VICKYdmit Provider, Attending Provider, Other ProviderActiveStart: December 24, 2023 Autumn Jones , ANAOther ProviderActiveStart: December 24, 2023 Joy Chaudhry , ANAOther ProviderActiveStart: December 24, 2023 Analy Koenig , ANAOther ProviderActiveStart: December 24, 2023 Shabnam Ley , ANAOther ProviderActiveStart: December 24, 2023 Macrina Rubio , ANAOther ProviderActiveStart: December 24, 2023 Bebe Ivey MDOther ProviderActiveStart: December 24, 2023 Tracy Bar DOOther ProviderActiveStart: December 24, 2023 Jose Kelsey MDOther ProviderActiveStart: December 24, 2023 Parviz Roth DOOther ProviderActiveStart: December 24, 2023 Hilario Skelton MDOther ProviderActiveStart: December 24, 2023 Ashley Merritt MDOther ProviderActiveStart: December 24, 2023 Jaguar Brewer MDOther ProviderActiveStart: December 24, 2023 Kiki Claros , APRNOther ProviderActiveStart: December 24, 2023 Donnell Amos MDOther ProviderActiveStart: December 24, 2023 Best Junior MDOther ProviderActiveStart: December 24, 2023 Betty Buchanan MDOther ProviderActiveStart: December 24, 2023 Yoni Zarco MDOther ProviderActiveStart: December 24, 2023 Isai May DOOther ProviderActiveStart: December 24, 2023 Hola Parkinson MDOther ProviderActiveStart: December 24, 2023 Bunny Fowler MDOther ProviderActiveStart: December 24, 2023 Tara Wright , BACTERIOLOGIST DAIRY-COther ProviderActiveStart: December 24, 2023 Madeline Ruvalcaba , APRNOther ProviderActiveStart: December 24, 2023 Bright Lopez MDOther ProviderActiveStart: December 24, 2023 Paul High MDOther ProviderActiveStart: December 24, 2023 Estiven Sharpe MDOther ProviderActiveStart: December 24, 2023 Kang Enriquez MDOther ProviderActiveStart: December 24, 2023 Buddy East MDOther ProviderActiveStart: December 24, 2023 Sherry Gonzalez , DOOther ProviderActiveStart: December 24, 2023 Bj Hess , DOOther ProviderActiveStart: December 24, 2023 Italia Moore , APRNOther ProviderActiveStart: December 24, 2023 Home Marino , DOOther ProviderActiveStart: December 24, 2023 Minna Patricia MDOther ProviderActiveStart: December 24, 2023 Kaitlynn Lewis , APRNOther ProviderActiveStart: December 24, 2023 Eleni Gill , APRNOther ProviderActiveStart: December 24, 2023 Regis Winston MDOther ProviderActiveStart: December 24, 2023 Pedrito Prather MDOther ProviderActiveStart: December 24, 2023 Fred T Yanes , DOOther ProviderActiveStart: December 24, 2023 Charley Hadley , DOOther ProviderActiveStart: December 24, 2023 Marcelo Sharpe MDOther ProviderActiveStart: December 24, 2023 Norma Box MDOther ProviderActiveStart: December 24, 2023 Rubi Alston , APRNOther ProviderActiveStart: December 24, 2023 Aidan Knight MDOther ProviderActiveStart: December 24, 2023 Wesly Palmer MDOther ProviderActiveStart: December 24, 2023 Naheed Uriostegui RNOther ProviderActiveStart: December 24, 2023 Team Status: Active Member Role Status Tj Anderson MD Primary Care Provider Active St art: January 06, 2024 Chandler Lowe ProviderActiveStart: January 06, 2024 Team Status: Inactive Member Role Status Tj Anderson MD Primary Care Provider Active St art: January 06, 2024 End: January 06, 2024JuBindu Cartagenaending ProviderActiveStart: January 06, 2024 End: January 06, 2024 Team Status: Active Member Role Status Tj Anderson MD Primary Care Provider Active St art: January 21, 2024 Swapna Harris ProviderActiveStart: January 21, 2024 Donnell Aoms MDAdmoskar Provider, Attending ProviderActiveStart: January 21, 2024 Team Status: Inactive Member Role Status Tj Anderson MD Primary Care Provider Active St art: January 21, 2024 End: January 22, 2024GeSwapna Tang ProviderActiveStart: January 21, 2024 End: January 22, 2024Minna Patricia MDAdmoskar Provider, Attending Provider ActiveStart: January 21, 2024 End: January 21ana Glover DOOther ProviderActiveStart: January 21, 2024 End: January 22, 2024 Team Status: Inactive Member Role Status Tj Anderson MD Primary Care Provider Active St art: February 03, 2024 End: February 03, 2024JuChandler Cartagena ProviderActiveStart: February 03, 2024 End: February 03, 2024 Team Status: Active Member Role Status Tj Anderson MD Primary Care Provider Active St art: February 03, 2024 Roly Morales DOAttending ProviderActiveStart: February 03, 2024 Team Status: Active Member Role Status Tj Anderson MD Primary Care Provider Active St art: February 26, 2024 Swapna Romano ProviderActiveStart: February 26, 2024 Bright Lopez MDAdmit Provider, Attending ProviderActiveStart: February 26, 2024 Team Status: Inactive Member Role Status Tj Anderson MD Primary Care Provider Active St art: February 26, 2024 End: February 27, 2024Swapna Romano ProviderActiveStart: February 26, 2024 End: February 27, 2024Karuna Abrams Provider, Attending ProviderActiveStart: February 26, 2024 End: February 27, 2024 Team Status: Active Member Role Status Tj Anderson MD Primary Care Provider Active St art: March 08, 2024 Ramses Garcia DOAttending ProviderActiveStart: March 08, 2024 Team Status: Inactive Member Role Status Tj Anderson MD Primary Care Provider Active St art: March 08, 2024 End: March 08, 2024Bindu Whitakerending ProviderActiveStart: March 08, 2024 End: March 08, 2024Team MemberRelationshipSpecialtyStart DateEnd Date María Anderson MD [address] [place] [address] PCP - GeneralInternal Medicine11/04/22 María Anderson MD [address] [place] [address] PCP - ACO Reach03/15/24 Monica Hook MD [address] [place] [address] Referring IgzcdtwkwNuxshmynaym11/30/23 Julio C Ramirez MD [address] [place] [address] Referring DwhljzwgjEohrypy38/30/23 Bonita Kingsley MD [address] [place] [address] Referring LtyvnrohmIolycmtrwt68/30/23Team MemberRelationshipSpecialtyStart Date End Date María Anderson MD [address] [place] [address] PCP - GeneralInternal Medicine11/04/22 María Anderson MD [address] [place] [address] PCP - ACO Reach03/15/24 Monica Hook MD [address] [place] [address] Referring NjeymiozvQiveoooquzy62/30/23 Julio C Ramirez MD [address] [place] [address] Referring PtuyyhlazWwtteir88/30/23 Bonita Kingsley MD [address] [place] [address] Referring ThexsotgaTggmfozjmr03/30/23Team MemberRelationshipSpecialtyStart Date End Date María Anderson MD [address] [place] [address] PCP - GeneralInternal Medicine11/04/22 María Anderson MD [address] [place] [address] PCP - ACO Reach03/15/24 Monica Hook MD [address] [place] [address] Referring LlzvbtihoBhscwsgbkgk37/30/23 Julio C Ramirez MD [address] [place] [address] Referring ZlkpcsdctHshnjno70/30/23 Bonita Kingsley MD [address] [facility] [address] [place] [address] Referring YvvkhflmqGetsrryhjy44/30/23Team MemberRelationshipSpecialtyStart Date End Date María Anderson MD [address] [place] [address] PCP - GeneralInternal Medicine11/04/22 María Anderson MD [address] [place] [address] PCP - ACO Reach03/15/24 Monica Hook MD [address] [place] [address] Referring KkwwfjyzpBkprhnhovbf76/30/23 Julio C Ramirez MD [address] [place] [address] Referring CnliicrdkEdpmvvj54/30/23 Bonita Kingsley MD [address] [facility] [address] [place] [address] Referring KtmumjtnbThyxmtggyf94/30/23Team MemberRelationshipSpecialtyStart Date End Date María Anderson MD [address] [place] [address] PCP - GeneralInternal Medicine11/04/22 María Anderson MD [address] [place] [address] PCP - ACO Reach03/15/24 Monica Hook MD [address] [place] [address] Referring VewcsdqbxGubkxzlvvdv65/30/23 Julio C Ramirez MD [address] [place] [address] Referring RahmqzqztGcnikvv06/30/23 Bonita Kingsley MD [address] [address] Referring VjuouwqexLtujjiqcbm71/30/23Team MemberRelationshipSpecialtyStart Date End Date María Anderson MD [address] [place] [address] PCP - GeneralInternal Medicine11/04/22 María Anderson MD [address] [place] [address] PCP - ACO Reach03/15/24 Monica Hook MD [address] [place] [address] Referring NtntxwjotRbfmywuhfcn82/30/23 Julio C Ramirez MD [address] [facility] [place] [address] Referring AhzgwmpgkWxfctee76/30/23 Bonita Kingsley MD [address] [facility] [address] [place] [address] Referring QjlhugtjvLfswuifafd68/30/23Team MemberRelationshipSpecialtyStart Date End Date María Anderson MD [address] [place] [phone] PCP - General02/24/23Team MemberRelationshipSpecialtyStart DateEnd Date María Anderson MD [address] [place] [phone] PCP - General02/24/23Team MemberRelationshipSpecialtyStart DateEnd Date María Anderson MD [address] [place] [address] PCP - GeneralInternal Medicine11/04/22 María Anderson MD [address] [place] [address] PCP - ACO Reach03/15/24 Monica Hook MD [address] [place] [address] Referring FuzkfewuaJltueyguilr93/30/23 Julio C Ramirez MD [address] [place] [address] Referring AsgtjfolhIhadaou85/30/23 Bonita Kingsley MD [address] [facility] [address] [place] [address] Referring JdjmpvjpxIspdxktncq88/30/23Team MemberRelationshipSpecialtyStart Date End Date María Anderson MD [address] [place] [id number] PCP - General02/24/23Team MemberRelationshipSpecialtyStart DateEnd Date María Anderson MD [address] [place] [address] PCP - GeneralInternal Medicine11/04/22 Trey العلي DO [address] [place] [address] PCP - ACO Reach11/06/22 Monica Hook MD [address] [place] [address] Referring BdgbikfimBcafsjkgiij39/30/23 Julio C Ramirez MD [address] [place] [address] Referring KahdjeafwFexyjnz30/30/23 Bonita Kingsley MD [address] [facility] [address] [place] [address] Referring XeyszhpcoLmdgadmpgh23/30/23Team MemberRelationshipSpecialtyStart Date End Date María Anderson MD [address] [place] [address] PCP - GeneralInternal Medicine11/04/22 María Anderson MD [address] [place] [address] PCP - ACO Reach03/15/24 Monica Hook MD [address] [place] [address] Referring YdthuzcofHcppiawkdsn48/30/23 Julio C Ramirez MD [address] [facility] [place] [address] Referring KecrbznlfApwlacn54/30/23 Bonita Kingsley MD [address] [address] Referring CtsfmdbpzEnesnhelmo38/30/23 Team Status: Inactive Member Role Status Dates María Anderson MD Primary Care Provider Active St art: May 06, 2024 End: May 06, 2024Sintia Abrams ProviderActiveStart: May 06, 2024 End: May 06, 2024 Team Status: Inactive Member Role Status Dates María Anderson MD Primary Care Provider Active St art: June 15, 2024 End: June 15Ania Adamson ProviderActiveStart: June 15, 2024 End: June 15, 2024Team MemberRelationshipSpecialtyStart DateEnd Date María Anderson MD [address] [place] [address] PCP - GeneralInternal Medicine11/04/22 María Anderson MD [address] [place] [address] PCP - ACO Reach03/15/24 Monica Hook MD [address] [place] [address] Referring DkdyaccsnLnupelqbllg83/30/23 Julio C Ramirez MD [address] [place] [address] Referring RmpatqglaLigvihe38/30/23 Bonita Kingsley MD [address] [place] [address] [place] [address] Referring HssijrnjmBoldejfbzg56/30/23Team MemberRelationshipSpecialtyStart Date End Date María Anderson MD [address] [place] [address] PCP - GeneralInternal Medicine11/04/22 María Anderson MD [address] [place] [address] PCP - ACO Reach03/15/24 Monica Hook MD [address] [place] [address] Referring ZfwvihvqvHjfvhgwefam34/30/23 Julio C Ramirez MD [address] [place] [address] Referring JcooweandNehvohe95/30/23 Bonita Kingsley MD [address] [facility] [address] [place] [address] Referring WfaylsazkTxasrnwiil09/30/23Team MemberRelationshipSpecialtyStart Date End Date María Anderson MD [address] [place] [address] PCP - GeneralInternal Medicine11/04/22 María Anderson MD [address] [place] [address] PCP - ACO [facility]03/15/24 Monica Hook MD [address] [place] [address] Referring TmgrflexaDrhxdhlloai56/30/23 Julio C Ramirez MD [address] [place] [address] Referring IhinenibuTbjyiiw78/30/23 Bonita Kingsley MD [address] [facility] [place] [address] Referring ErfuvupypVncewgkyox66/30/23Team MemberRelationshipSpecialtyStart Date End Date María Anderson MD [address] [place] [address] PCP - GeneralInternal Medicine11/04/22 María Anderson MD [address] [place] [address] PCP - ACO Reach03/15/24 Monica Hook MD [address] [place] [address] Referring FqaxwakicSuvqliibjbv08/30/23 Julio C Ramirez MD [address] [facility] [address] Referring OkcyrnvirWwpcqat36/30/23 Bonita Kingsley MD [address] [facility] [address] [place] [address] Referring UwrmddtziXdrmttbhtp19/30/23Team MemberRelationshipSpecialtyStart Date End Date María Anderson MD [address] [place] [phone] PCP - General02/24/23Te MemberRelationshipSpecialtyStart DateEnd Date María Anderson MD [address] [place] [address] PCP - GeneralInternal Medicine11/04/22 María Anderson MD [address] [place] [address] PCP - ACO Reach03/15/24 Monica Hook MD [address] [place] [address] Referring IgxnysudvVddxpmdklbl53/30/23 Julio C Ramirez MD [address] [place] [address] Referring ZrkxdvnckDcrpqff45/30/23 Bonita Kingsley MD [address] [facility] [address] [place] [address] Referring YntfwzxfuEnqzccpxrp20/30/23Team MemberRelationshipSpecialtyStart Date End Date María Anderson MD [address] [place] [address] PCP - GeneralInternal Medicine11/04/22 María Anderson MD [address] [place] [address] PCP - ACO Reach03/15/24 Monica Hook MD [address] [place] [address] Referring CafbciemmNuqrsbgfwpg73/30/23 Julio C Ramirez MD [address] [place] [address] Referring PvczylkrzHgtetim68/30/23 Bonita Kingsley MD [address] [facility] [place] [address] Referring DkwrshtzeBpryowwzec52/30/23Te MemberRelationshipSpecialtyStart Date End Date María Anderson MD [address] [place] [address] PCP - GeneralInternal Medicine11/04/22 María Anderson MD [address] [place] [address] PCP - ACO Reach03/15/24 Monica Hook MD [address] [place] [address] Referring KsvqpaslzUmocwsrvbll99/30/23 Julio C Ramirez MD [address] [place] [address] Referring KtgpfqfsgTnlaxtv32/30/23 Bonita Kingsley MD [address] [facility] [address] [place] [address] Referring TlhddsrpmKpgkafqrgf30/30/23Team MemberRelationshipSpecialtyStart Date End Date María Anderson MD [address] [place] [address] PCP - GeneralInternal Medicine11/04/22 María Anderson MD [address] [place] [address] PCP - ACO Reach03/15/24 Monica Hook MD [address] [place] [address] Referring QyttavjltCwfidsueznl10/30/23 Julio C Ramirez MD [address] [place] [address] Referring MeeaxivnpEulvytl66/30/23 Bonita Kingsley MD [address] [facility] [address] [place] [address] Referring KxbfiwvhpXxlgcbjbgv91/30/23Team MemberRelationshipSpecialtyStart Date End Date María Anderson MD [address] [place] [address] PCP - GeneralInternal Medicine11/04/22 María Anderson MD [address] [place] [address] PCP - ACO Reach03/15/24 Monica Hook MD [address] [place] [address] Referring VehnqthhaDxtknqiobkp67/30/23 Julio C Ramirez MD [address] [facility] [place] [address] Referring MqngzftsxRosgnxw19/30/23 Bonita Kinsgley MD [address] [facility] [address] [place] [address] Referring HdqyutiurRnlygccbrq85/30/23 Goals (unrecognized section and content) Type Treatment Intervention Code Status: Full Code Goals may be documented in an alternate section (unrecognized sect ion and content) [...] section and content) DATE CREATED AUTHOR 02/26/2022 [facility] DATE CREATED AUTHOR AUTHOR'S ORGANIZ ATION 04/05/2022 [facility] DATE CREATED AUTHOR AUTHOR'S ORGANIZ ATION 11/23/2022 [facility] DATE CREATED AUTHOR AUTHOR'S ORGANIZ ATION 02/25/2023 [facility] DATE CREATED AUTHOR AUTHOR'S ORGANIZ ATION 02/25/2023 [facility] DATE CREATED AUTHOR AUTHOR'S ORGANIZ ATION 04/18/2024 [facility] DATE CREATED AUTHOR AUTHOR'S ORGANIZ ATION 08/18/2024 [facility] DATE CREATED AUTHOR AUTHOR'S ORGANIZ ATION 10/23/2024 [facility] DATE CREATED AUTHOR AUTHOR'S ORGANIZ ATION 10/26/2024 [facility] DATE CREATED AUTHOR AUTHOR'S ORGANIZ ATION 10/28/2024 [facility] DATE CREATED AUTHOR AUTHOR'S ORGANIZ ATION 11/11/2024 [facility] DATE CREATED AUTHOR AUTHOR'S ORGANIZ ATION 12/14/[address] [facility] DATE CREATED AUTHOR AUTHOR'S ORGANIZ ATION 03/07/2025 [facility] DATE CREATED AUTHOR AUTHOR'S ORGANIZ ATION 03/27/2025 [facility] DATE CREATED AUTHOR AUTHOR'S ORGANIZ ATION 03/29/2025 [facility] DATE CREATED AUTHOR AUTHOR'S ORGANIZ ATION 04/03/2025 [facility] FOR RECORDS PERTAINING TO PATIENTS WHO ARE [...] BE BASED ON THE PRIMARY CLINICAL RECORDS. [facility]. provides no warranty or guarantee of the accuracy or completeness of information in this document.
== END 2025-04-06 12:57 | disposition home or self-care (01) ==
LOC: CT 12:56
PROVIDERS: PCP Internal Medicine; Visit Provider Nurse Practitioner Family
DX: J43.2 Centrilobular emphysema (principal); R05.3 Chronic cough; I51.7 Cardiomegaly
CPT/HCPCS: 71250

== ENCOUNTER 2025-04-15 | Outpatient (RCR) | payer MEDICARE, OTHER, SELFPAY | END 2025-05-14 23:59 | disposition home or self-care (01) | LOC: MM | PROVIDERS: PCP Internal Medicine; Visit Provider Internal Medicine | DX: Z51.81 Encounter for therapeutic drug level monitoring (principal); Z79.01 Long term (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 ==

== ENCOUNTER 2025-05-15 10:10 | Outpatient (RCR) | payer MEDICARE, OTHER, SELFPAY | END 2025-06-14 12:40 | disposition home or self-care (01) | LOC: MM 10:10 | PROVIDERS: PCP Internal Medicine; Visit Provider Internal Medicine | DX: Z51.81 Encounter for therapeutic drug level monitoring (principal); Z79.01 Long term (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; I48.20 Chronic atrial fibrillation, unspecified | CPT/HCPCS: 85610; G0463 ==